=== PATIENT | female | born 1995 | race Caucasian/White ===

== ENCOUNTER 2022-11-11 07:32 | Outpatient (OUT) | payer OTHER, SELFPAY ==
[2022-11-12 05:08] LABS: Progesterone 15.4 ng/mL (.)
== END 2022-11-11 07:33 | disposition home or self-care (01) ==
LOC: LAB 07:32
PROVIDERS: Visit Provider Obstetrics & Gynecology
DX: N97.0 Female infertility associated with anovulation (principal)
CPT/HCPCS: 36415; 84144

== ENCOUNTER 2022-12-09 14:11 | Outpatient (OUT) | payer OTHER, SELFPAY ==
[2022-12-10 04:08] LABS: Progesterone 11.4 ng/mL (.)
== END 2022-12-09 14:12 | disposition home or self-care (01) ==
LOC: LAB 14:13
PROVIDERS: Visit Provider Obstetrics & Gynecology
DX: N97.9 Female infertility, unspecified (principal)
CPT/HCPCS: 36415; 84144

== ENCOUNTER 2023-01-03 09:43 | Outpatient (OUT) | payer OTHER, SELFPAY ==
[2023-01-04 08:12] LABS: Progesterone 1.3 ng/mL (.)
== END 2023-01-03 09:44 | disposition home or self-care (01) ==
LOC: LAB 09:43
PROVIDERS: Visit Provider Obstetrics & Gynecology
DX: N97.0 Female infertility associated with anovulation (principal)
CPT/HCPCS: 36415; 84144

== ENCOUNTER 2023-02-04 07:22 | Outpatient (OUT) | payer OTHER, SELFPAY ==
[2023-02-05 08:12] LABS: Progesterone 19.7 ng/mL (.)
== END 2023-02-04 07:23 | disposition home or self-care (01) ==
LOC: LAB 07:24
PROVIDERS: Visit Provider Obstetrics & Gynecology
DX: N92.6 Irregular menstruation, unspecified (principal)
CPT/HCPCS: 36415; 84144

== ENCOUNTER 2023-02-20 07:22 | Outpatient (OUT) | payer OTHER, SELFPAY ==
--- NOTE | 2023-02-20 07:33 | XR_ITS ---
The [address] [address] Patient Name: OLENA PEREYRA MRN: [id number] date: 1995 Sex: F Assigned Patient Location: [facility] Current Patient Location: [facility] Accession/Order Number: [id number] Exam Date: 02/20/2023 07:27 Report Date: 02/20/2023 08:12 At the request of: NON-STAFF PHYSICIAN Procedure: XR cervical spine 5V XR cervical spine 5V, 02/20/2023 7:27 AM EDT, [place]001 INDICATION: Neck pain COMPARISON: None TECHNIQUE: Five images are submitted, including bilateral oblique views. FINDINGS: There is straightening of the cervical curvature which may be due to spasm or positioning. No acute fracture or subluxation is identified. There is no significant disc space narrowing. The oblique views demonstrate no significant foraminal stenosis. The visualized soft tissues appear unremarkable. XR/XR cervical spine 5V IMPRESSION: There is straightening of the cervical curvature which may be due to spasm. No acute fracture or subluxation is seen. Electronically authenticated by: NAYELI ESQUIVEL Date: 02/20/2023 08:12
== END 2023-02-20 07:23 | disposition home or self-care (01) ==
LOC: RAD 07:23
DX: M54.2 Cervicalgia (principal); R51.9 Headache, unspecified
CPT/HCPCS: 72050

== ENCOUNTER 2023-03-04 07:10 | Outpatient (OUT) | payer OTHER, SELFPAY ==
[2023-03-05 04:07] LABS: Progesterone 15.9 ng/mL (.)
== END 2023-03-04 07:11 | disposition home or self-care (01) ==
LOC: LAB 07:10
PROVIDERS: Visit Provider Obstetrics & Gynecology
DX: N97.0 Female infertility associated with anovulation (principal)
CPT/HCPCS: 36415; 84144

== ENCOUNTER 2023-04-10 13:30 | Day surgery (SDC) | payer OTHER, SELFPAY ==
--- NOTE | 2023-04-10 13:49 | FL_ITS ---
[address] [address] Patient Name: OLENA PEREYRA MRN: [id number] date: 1995 Sex: F Assigned Patient Location: LAB Current Patient Location: LAB Accession/Order Number: [id number] Exam Date: 04/10/2023 14:30 Report Date: 04/13/2023 10:54 At the request of: RULA SMITH Procedure: FL Hysterosal cath placement EXAM: FL Hysterosal cath placement HISTORY: Infertility TECHNIQUE: FINDINGS: Please see Operative Report. Electronically authenticated by: RADIOLOGIST NO Date: 04/13/2023 10:54
--- NOTE | 2023-04-10 13:49 | FL_ITS ---
The [address] [address] Patient Name: OLENA PEREYRA MRN: [id number] date: 1995 Sex: F Assigned Patient Location: LAB Current Patient Location: Accession/Order Number: [id number] Exam Date: 04/10/2023 14:30 Report Date: 04/10/2023 15:10 At the request of: RULA SMITH Procedure: FL hysterosalpingography EXAMINATION: FL hysterosalpingography HISTORY: Infertility COMPARISON: No relevant comparison available. TECHNIQUE: Informed consent was obtained. A sterile vaginal speculum was introduced and, following cleansing of the cervix, a balloon-tipped catheter was inserted into the endometrial cavity. The procedure was then completed in the usual manner with water-soluble contrast. Standard level fluoroscopic mode of operation utilized. FINDINGS: FALLOPIAN TUBES: Patent fallopian tubes bilaterally. ENDOMETRIAL CAVITY: No scarring, filling defects, or dilatation. OTHER: Negative. FL/FL hysterosalpingography IMPRESSION: Normal exam Electronically authenticated by: SRIDHAR LAINEZ Date: 04/10/2023 15:10
[2023-04-10 14:06] LABS: HCG Quantitative <1 mIU/mL
--- NOTE | 2023-04-10 15:05 | PC.NURSE ---
1445 Pt denies any increase in vag bleeding. c/o mild abdominal cramping.
--- NOTE | 2023-04-10 15:05 | SUR.PREOP ---
04/08/23 Pt instructed on date, time, prep, and procedure.
== END 2023-04-10 14:50 | disposition home or self-care (01) ==
PROVIDERS: Radiology Diagnostic Radiology; Visit Provider Obstetrics & Gynecology
DX: N97.0 Female infertility associated with anovulation (principal)
CPT/HCPCS: 36415; 58340; 74740; 84702; Q9966

== ENCOUNTER 2023-06-06 09:08 | Outpatient (OUT) | payer OTHER, SELFPAY ==
--- OUTSIDE RECORDS SUMMARY | 2023-06-06 09:11 | XMS_ITS | CCD ---
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 [place] [address] Dr. Meghna Alas IG # 0.02 10e3/ul Normal 0.00-0.03 [facility] Comment on above: Performed By: #### C BC #### [facility] [address] [place] [address] Dr. Meghna Alas IG % 0.3 % Normal 0.0-0.5 [facility] Comment on above: Performed By: #### C BC #### [facility] [address] [place] [address] Dr. Meghna Alas LYMPH # 1.7 103/ul Normal 1.2-3.8 [facility] Comment on above: Performed By: #### C BC #### [facility] [address] [place] [address] Dr. Meghna Alas Lymphocytes/100 WBC (Bld) 27.7 % Normal 20.5-60.0 [facility] Comment on above: Performed By: #### C BC #### [facility] [address] [place] [address] Dr. Meghna Alas MANUAL DIFF REQ NO Normal [facility] Comment on above: Performed By: #### C BC #### [facility] [address] [place] [address] Dr. Meghna Alas MCH (RBC) [Entitic mass] 30.7 pg Normal 26.7-34.0 [facility] Comment on above: Performed By: #### C BC #### [facility] [address] [place] [address] Dr. Meghna Alas MCHC (RBC) [Mass/Vol] 34.2 g/dL Normal 29.9-35.2 [facility] Comment on above: Performed By: #### C BC #### [facility] [address] [place] [address] Dr. Meghna Alas MCV (RBC) [Entitic vol] 89.7 fL Normal 81.0-99.0 [facility] Comment on above: Performed By: #### C BC #### [facility] [address] [place] [address] Dr. Meghna Alas MONO # 0.4 103/ul Normal 0.3-0.8 [facility] Comment on above: Performed By: #### C BC #### [facility] [address] [place] [address] Dr. Meghna Alas Monocytes/100 WBC (Bld) 7.1 % Normal 1.7-12.0 [facility] Comment on above: Performed By: #### C BC #### [facility] [address] [place] [address] Dr. Meghna Alas NEUT # 3.7 103/ul Normal 1.4-6.5 [facility] Comment on above: Performed By: #### C BC #### [facility] [address] [place] [address] Dr. Meghna Alas Neutrophils/100 WBC (Bld) 60.4 % Normal 43.0-75.0 [facility] Comment on above: Performed By: #### C BC #### [facility] [address] [place] [address] Dr. Meghna Alas Platelet mean volume (Bld) [Entitic vol] 11.3 fL Normal 9.5-13.5 [facility] Comment on above: Performed By: #### C BC #### [facility] [address] [place] [address] Dr. Meghna Alas PLT 154 103/ul Normal 150-450 [facility] Comment on above: Performed By: #### C BC #### [facility] [address] [place] [address] Dr. Meghna Alas RBC 4.86 106/ul Normal 4.20-5.40 [facility] Comment on above: Performed By: #### C BC #### [facility] [address] [place] [address] Dr. Meghna Alas WBC 6.2 103/ul Normal 4.0-11.0 [facility] Comment on above: Performed By: #### C BC #### [facility] [address] [place] [address] Dr. Meghna Alas FREE T4on 07-26-2022 Free T4 [Mass/Vol] 1.04 ng/dL Normal 0.76-1.46 [facility] Comment on above: Performed By: #### F T4 #### [facility] [address] [place] [address] Dr. Meghna Alas GLYCOHEMOGLOBIN A1Con 2022 ADA RECOMMENDATION SEE BELOW Normal [facility] Comment on above: Result Comment: ADA RECOMMENDED LIMIT 4.0 - 6.0 ADA THERAPEUTIC TARGET < 7.0 ACTION SUGGESTED > 7.0 Performed By: #### A 1C #### [facility] [address] [place] [address] Dr. Meghna Alas Glucose [Mass/Vol] 82 mg/dL Normal [facility] Comment on above: Performed By: #### A 1C #### [facility] [address] [place] [address] Dr. Meghna Alas HbA1c (Bld) [Mass fraction] 4.5 % Normal 4.5-6.2 [facility] Comment on above: Performed By: #### A 1C #### [facility] [address] [place] [address] Dr. Meghna Alas TSHon 07-26-2022 TSH 1.522 uIU/mL Normal 0.358-3.740 [facility] Comment on above: Performed By: #### T SH #### [facility] [address] [place] [address] Dr. Meghna Alas Vital Signs Date Time Vital Sign Value Performing Clinician Faci lity 02-19-2023 07:41-0400 Body temperature 97.7 [degF] Princess Rapp [facility] 02-19-2023 07:41-0400 Diastolic blood pressure 70 mm[Hg] Princess Rapp [facility] 02-19-2023 07:41-0400 Heart rate 81 /min Princess Rapp [facility] 02-19-2023 07:41-0400 SaO2% (BldA) [Mass fraction] 99 % Princess Rapp [facility] 02-19-2023 07:41-0400 Systolic blood pressure 110 mm[Hg] Princess Rapp [facility] 07-24-2021 16:57-0400 Blood Pressure Location Leigh Ann Covington [facility] 07-24-2021 16:57-0400 Body temperature 97.7 [degF] Leigh Ann Bojorquezell [facility] 07-24-2021 16:57-0400 Diastolic blood pressure 68 mm[Hg] Leigh Ann Bojorquezell [facility] 07-24-2021 16:57-0400 Heart rate 88 /min Leigh Annjuan Bojorquezell [facility] 07-24-2021 16:57-0400 SaO2% (BldA) [Mass fraction] 99 % Leigh Ann Bojorquezell [facility] 07-24-2021 16:57-0400 Systolic blood pressure 122 mm[Hg] Leigh Ann Bojorquezell [facility] Encounters Encounter Date Encounter Type Care Provider Facility Start: 03-25-2023 End: 03-26-2023 ambulatory Princess Rapp Facility:[facility] Start: 03-25-2023 End: 03-25-2023 Patient encounter procedure Princess Rapp [facility] Start: 03-18-2023 End: 03-18-2023 ambulatory RULA SMITH Not Available Start: 02-19-2023 End: 02-20-2023 ambulatory Princess Rapp Facility:[facility] Start: 02-19-2023 End: 02-19-2023 Patient encounter procedure Princess Rapp [facility] Start: 07-26-2022 End: 07-27-[address] RULA SMITH . Facility:[facility] Start: 07-23-2022 End: 07-23-[address] RULA SMITH . Facility:[facility] Start: 07-24-2021 End: 07-24-2021 Patient encounter procedure Leigh Ann Covington [facility] Procedures Date Procedure Procedure Detail Performing Clinician Start: 11-15-2015 Right Knee Arthrosco py with Medial Meniscal Repair Leigh Ann Covington Start: 07-28-2013 right knee anterior cruciate ligament allograft reconstruction with [id number], debridment medial meniscus tear, patellofemoral chondroplasty-Grade I-II Leigh Ann Covington Tonsillectomy Leigh Ann Covington tubes in the ears Leigh Ann bartholomew Immunizations Immunization Date Immunization Notes Care Provider Fa cility 12-20-2009 meningococcal ACWY vaccine, unspecified formulation Princess Rapp [facility] 12-20-2009 tetanus toxoid, reduced diphtheria toxoid, and acellular pertussis vaccine, adsorbed Princess Rapp [facility] 12-20-2009 varicella virus vaccine Princess Rapp [facility] NEGATED: Highlighted row has not occurred!06-26-2021 influenza virus vaccine, unspecified formulation Leigh Ann Covington [facility] NEGATED: Highlighted row has not occurred!06-26-2021 SARS-CoV-2 (COVID-19) Ad26 vaccine, recombinant Leigh Ann Covington [facility] NEGATED: Highlighted row has not occurred!01-29-2021 influenza virus vaccine, unspecified formulation Leigh Ann Covington [facility] NEGATED: Highlighted row has not occurred!01-29-2021 SARS-CoV-2 (COVID-19) Ad26 vaccine, recombinant Leigh Ann Covington [facility] NEGATED: Highlighted row has not occurred!05-03-2019 influenza virus vaccine, live, attenuated, for intranasal use Leigh Ann SwingShot [facility] NEGATED: Highlighted row has not occurred!09-30-2018 influenza virus vaccine, unspecified formulation Leigh Ann Covington [facility] Payers Date Payer Category Payer Unknown [id number] [id number] [id number] 1997 Unknown [id number] [id number] [id number] 1997 Unknown [id number] 1997 Unknown [id number] [id number] 1997 Unknown [id number] [id number] 1959 Unknown [id number] 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 Date Type Detail Facility Start: 07-24-2021 Tobacco smoking status Never s moked tobacco (finding) [facility] Tobacco smoking status Never Oliverio [facility] Sex Assigned At Female [facility] Functional Status Date Assessment Result Facility 02-19-2023 Functional Status N/A [facility] Evaluation + Plan note 02-19-2023 LaboratoryRadiology Note Date & Type Note Facility 02-19-2023 Evaluation + Plan note Future Scheduled TestsU Protein/Creat Ratio 02/19/23HgbA1c 02/19/23Microalbumin Level Urine 02/19/23TSH With T4fr Reflex 02/19/23Vitamin D 25 Hydroxy 02/19/23CBC w/ Auto Diff 02/19/23Comprehensive Metabolic Panel 02/19/23Lipid Panel 02/19/23XR Spine Cervical 4 or 5 Views 02/19/23 [facility] Hospital Discharge instructions 02-19-2023 Note Date & Type Note Facility 02-19-2023 Hospital Discharg e instructions Patient Education 02/19/2023 08:34:11 Cervicogenic Headache Cervicogenic Headache In a cervicogenic headache, the pain moves from your neck to your head. Most cervicogenic headaches start in the upper part of the neck with the first three cervical bones (cervical vertebrae). What are the causes? The most common cause of this condition is a traumatic injury to the bones and tissues in your neck (cervical spine). Whiplash is an example of a cervical spine injury. Other causes include: Arthritis. Broken bone (fracture). Infection. Tumor. What are the signs or symptoms? The most common symptoms are neck and head pain. The pain is often located on one side. In some cases, there may be head pain without neck pain. Pain may be felt in the neck, back or side of the head, face, or behind the eyes. Other symptoms include: Limited movement in the neck. Arm or shoulder pain. How is this diagnosed? This condition may be diagnosed based on: Your symptoms. A physical exam. An injection that blocks nerve signals (diagnostic nerve block). Imaging tests, such as: ?X-rays. ?CT scan. ?MRI. A cervicogenic headache is diagnosed when a cause can be found in the cervical spine and other causes of headaches can be ruled out. How is this treated? Treatment for this condition may depend on the underlying condition. Treatment may include: Medicines, such as: ?NSAIDs, such as ibuprofen. ?Muscle relaxants. Physical therapy. Massage therapy. Complementary therapies, such as: ?Biofeedback. ?Meditation. ?Acupuncture. Nerve block injections to reduce the pain. Botulinum toxin injections. Your treatment plan may involve working with a pain management team that includes your primary health care provider, a automobile painter, a neurologist, and a physical therapist. Follow these instructions at home: Take eoba-bux-mxfxyho and prescription medicines only as told by your health care provider. Do exercises at home as told by your physical therapist. Return to your normal activities as told by your health care provider. Ask your health care provider what activities are safe for you. Avoid activities that trigger your headaches. Maintain good neck support and posture at home and at work. Keep all follow-up visits. This is important. Contact a health care provider if: You have headaches that are getting worse and happening more often. You have headaches with any of the following: ?Fever. ?Numbness. ?Weakness. ?Dizziness. ?Nausea or vomiting. Get help right away if: You have a sudden and severe headache. This symptom may be an emergency. Get help right away. Call 911. Do not wait to see if this symptom will go away. Do not drive yourself to the hospital. Summary A cervicogenic headache is a headache caused by a condition that affects the bones and tissues in your cervical spine. Your health care provider may diagnose this condition with a physical exam, a diagnostic nerve block, and imaging tests. Treatment may include medicine to reduce pain and inflammation, physical therapy, and nerve block injections. Complementary therapies, such as acupuncture and meditation, may be added to other treatments. Your treatment plan may involve working with a pain management team that includes your primary health care provider, a automobile painter, a neurologist, and a physical therapist. This information is not intended to replace advice given to you by your health care provider. Make sure you discuss any questions you have with your health care provider. Document Revised: 10/24/2021 Document Reviewed: 10/24/2021 [employer] Patient Education 2022 [employer]. 02/19/2023 08:34:09 Migraine Headache Migraine Headache A migraine headache is an intense, throbbing pain on one side or both sides of the head. Migraine headaches may also cause other symptoms, such as nausea, vomiting, and sensitivity to light and noise. A migraine headache can last from 4 hours to 3 days. Talk with your doctor about what things may bring on (trigger) your migraine headaches. What are the causes? The exact cause of this condition is not known. However, a migraine may be caused when nerves in the brain become irritated and release chemicals that cause inflammation of blood vessels. This inflammation causes pain. This condition may be triggered or caused by: Drinking alcohol. Smoking. Taking medicines, such as: ?Medicine used to treat chest pain (nitroglycerin). ? control pills. ?Estrogen. ?Certain blood pressure medicines. Eating or drinking products that contain nitrates, glutamate, aspartame, or tyramine. Aged cheeses, chocolate, or caffeine may also be triggers. Doing physical activity. Other things that may trigger a migraine headache include: Menstruation. . Hunger. Stress. Lack of sleep or too much sleep. Weather changes. Fatigue. What increases the risk? The following factors may make you more likely to experience migraine headaches: Being a certain age. This condition is more common in people who are 25 55 years old. Being female. Having a family history of migraine headaches. Being . Having a mental health condition, such as depression or anxiety. Being obese. What are the signs or symptoms? The main symptom of this condition is pulsating or throbbing pain. This pain may: Happen in any area of the head, such as on one side or both sides. Interfere with daily activities. Get worse with physical activity. Get worse with exposure to bright lights or loud noises. Other symptoms may include: Nausea. Vomiting. Dizziness. General sensitivity to bright lights, loud noises, or smells. Before you get a migraine headache, you may get warning signs (an aura). An aura may include: Seeing flashing lights or having blind spots. Seeing bright spots, halos, or zigzag lines. Having tunnel vision or blurred vision. Having numbness or a tingling feeling. Having trouble talking. Having muscle weakness. Some people have symptoms after a migraine headache (postdromal phase), such as: Feeling tired. Difficulty concentrating. How is this diagnosed? A migraine headache can be diagnosed based on: Your symptoms. A physical exam. Tests, such as: ?CT scan or an MRI of the head. These imaging tests can help rule out other causes of headaches. ?Taking fluid from the spine (lumbar puncture) and analyzing it (cerebrospinal fluid analysis, or CSF analysis). How is this treated? This condition may be treated with medicines that: Relieve pain. Relieve nausea. Prevent migraine headaches. Treatment for this condition may also include: Acupuncture. Lifestyle changes like avoiding foods that trigger migraine headaches. Biofeedback. Cognitive behavioral therapy. Follow these instructions at home: Medicines Take gmjf-szs-nbsmhlh and prescription medicines only as told by your health care provider. Ask your health care provider if the medicine prescribed to you: ?Requires you to avoid driving or using heavy machinery. ?Can cause constipation. You may need to take these actions to prevent or treat constipation: ?Drink enough fluid to keep your urine pale yellow. ?Take zvqx-rxh-oafdksy or prescription medicines. ?Eat foods that are high in fiber, such as beans, whole grains, and fresh fruits and vegetables. ?Limit foods that are high in fat and processed sugars, such as fried or sweet foods. Lifestyle Do not drink alcohol. Do not use any products that contain nicotine or tobacco, such as cigarettes, e-cigarettes, and chewing tobacco. If you need help quitting, ask your health care provider. Get at least 8 hours of sleep every night. Find ways to manage stress, such as meditation, deep breathing, or yoga. General instructions Keep a journal to find out what may trigger your migraine headaches. For example, write down: ?What you eat and drink. ?How much sleep you get. ?Any change to your diet or medicines. If you have a migraine headache: ?Avoid things that make your symptoms worse, such as bright lights. ?It may help to lie down in a dark, quiet room. ?Do not drive or use heavy machinery. ?Ask your health care provider what activities are safe for you while you are experiencing symptoms. Keep all follow-up visits as told by your health care provider. This is important. Contact a health care provider if: You develop symptoms that are different or more severe than your usual migraine headache symptoms. You have more than 15 headache days in one month. Get help right away if: Your migraine headache becomes severe. Your migraine headache lasts longer than 72 hours. You have a fever. You have a stiff neck. You have vision loss. Your muscles feel weak or like you cannot control them. You start to lose your balance often. You have trouble walking. You faint. You have a seizure. Summary A migraine headache is an intense, throbbing pain on one side or both sides of the head. Migraines may also cause other symptoms, such as nausea, vomiting, and sensitivity to light and noise. This condition may be treated with medicines and lifestyle changes. You may also need to avoid certain things that trigger a migraine headache. Keep a journal to find out what may trigger your migraine headaches. Contact your health care provider if you have more than 15 headache days in a month or you develop symptoms that are different or more severe than your usual migraine headache symptoms. This information is not intended to replace advice given to you by your health care provider. Make sure you discuss any questions you have with your health care provider. Document Revised: 08/12/2019 Document Reviewed: 06/02/2019 [employer] Patient Education 2022 [email or web address]. 02/19/2023 08:34:03 Form - Headache Record Form - Headache Record There are many types and causes of headaches. A headache record can help guide your treatment plan. Use this form to record the details. Bring this form with you to your follow-up visits. Follow your health care provider's instructions on how to describe your headache. You may be asked to: Use a pain scale. This is a tool to rate the intensity of your headache using words or numbers. Describe what your headache feels like, such as dull, achy, throbbing, or sharp. Headache record Date: Time (from start to end): Location of the headache: Intensity of the headache: Description of the headache: __ Hours of sleep the night before the headache: Food or drinks before the headache started: Events before the headache started: Symptoms before the headache started: Symptoms during the headache: Treatment: Effect of treatment: Other comments: Date: Time (from start to end): Location of the headache: Intensity of the headache: Description of the headache: __ Hours of sleep the night before the headache: Food or drinks before the headache started: Events before the headache started: __ Symptoms before the headache started: Symptoms during the headache: Treatment: Effect of treatment: Other comments: Date: Time (from start to end): Location of the headache: Intensity of the headache: Description of the headache: __ Hours of sleep the night before the headache: Food or drinks before the headache started: Events before the headache started: __ Symptoms before the headache started: Symptoms during the headache: Treatment: Effect of treatment: Other comments: Date: Time (from start to end): Location of the headache: Intensity of the headache: Description of the headache: __ Hours of sleep the night before the headache: Food or drinks before the headache started: Events before the headache started: __ Symptoms before the headache started: Symptoms during the headache: Treatment: Effect of treatment: Other comments: Date: Time (from start to end): Location of the headache: Intensity of the headache: Description of the headache: __ Hours of sleep the night before the headache: Food or drinks before the headache started: Events before the headache started: __ Symptoms before the headache started: Symptoms during the headache: Treatment: Effect of treatment: Other comments: This information is not intended to replace advice given to you by your health care provider. Make sure you discuss any questions you have with your health care provider. Document Revised: 09/18/2021 Document Reviewed: 09/18/2021 Elsevier Patient Education 2022 [employer] 02/19/2023 01:02:45 General Headache Without Cause General Headache Without Cause A headache is pain or discomfort felt around the head or neck area. There are many causes and types of headaches. A few common types include: Tension headaches. Migraine headaches. Cluster headaches. Chronic daily headaches. Sometimes, the specific cause of a headache may not be found. Follow these instructions at home: Watch your condition for any changes. Let your health care provider know about them. Take these steps to help with your condition: Managing pain Take qpna-amh-ywexfyz and prescription medicines only as told by your health care provider. Treatment may include medicines for pain that are taken by mouth or applied to the skin. Lie down in a dark, quiet room when you have a headache. Keep lights dim if bright lights bother you or make your headaches worse. If directed, put ice on your head and neck area: ?Put ice in a plastic bag. ?Place a towel between your skin and the bag. ?Leave the ice on for 20 minutes, 2 3 times per day. ?Remove the ice if your skin turns bright red. This is very important. If you cannot feel pain, heat, or cold, you have a greater risk of damage to the area. If directed, apply heat to the affected area. Use the heat source that your health care provider recommends, such as a moist heat pack or a heating pad. ?Place a towel between your skin and the heat source. ?Leave the heat on for 20 30 minutes. ?Remove the heat if your skin turns bright red. This is especially important if you are unable to feel pain, heat, or cold. You have a greater risk of getting burned. Eating and drinking Eat meals on a regular schedule. If you drink alcohol: ?Limit how much you have to: ?0 1 drink a day for women who are not . ? 0 2 drinks a day for men. ?Know how much alcohol is in a drink. In the [place] one drink equals one 12 oz bottle of beer (355 mL), one 5 oz glass of wine (148 mL), or one 1 oz glass of hard liquor (44 mL). Stop drinking caffeine, or decrease the amount of caffeine you drink. Drink enough fluid to keep your urine pale yellow. General instructions Keep a headache journal to help find out what may trigger your headaches. For example, write down: ?What you eat and drink. ?How much sleep you get. ?Any change to your diet or medicines. Try massage or other relaxation techniques. Limit stress. Sit up straight, and do not tense your muscles. Do not use any products that contain nicotine or tobacco. These products include cigarettes, chewing tobacco, and vaping devices, such as e-cigarettes. If you need help quitting, ask your health care provider. Exercise regularly as told by your health care provider. Sleep on a regular schedule. Get 7 9 hours of sleep each night, or the amount recommended by your health care provider. Keep all follow-up visits. This is important. Contact a health care provider if: Medicine does not help your symptoms. You have a headache that is different from your usual headache. You have nausea or you vomit. You have a fever. Get help right away if: Your headache: ?Becomes severe quickly. ?Gets worse after moderate to intense physical activity. You have any of these symptoms: ?Repeated vomiting. ?Pain or stiffness in your neck. ?Changes to your vision. ?Pain in an eye or ear. ?Problems with speech. ?Muscular weakness or loss of muscle control. ?Loss of balance or coordination. You feel faint or pass out. You have confusion. You have a seizure. These symptoms may represent a serious problem that is an emergency. Do not wait to see if the symptoms will go away. Get medical help right away. Call your local emergency services (911 in the [place] Do not drive yourself to the hospital. Summary A headache is pain or discomfort felt around the head or neck area. There are many causes and types of headaches. In some cases, the cause may not be found. Keep a headache journal to help find out what may trigger your headaches. Watch your condition for any changes. Let your health care provider know about them. Contact a health care provider if you have a headache that is different from the usual headache, or if your symptoms are not helped by medicine. Get help right away if your headache becomes severe, you vomit, you have a loss of vision, you lose your balance, or you have a seizure. This information is not intended to replace advice given to you by your health care provider. Make sure you discuss any questions you have with your health care provider. Document Revised: 09/18/2021 Document Reviewed: 09/18/2021 [employer] Patient Education 2022 [employer]. 02/19/2023 01:02:42 Form - Headache Record Form - Headache Record There are many types and causes of headaches. A headache record can help guide your treatment plan. Use this form to record the details. Bring this form with you to your follow-up visits. Follow your health care provider's instructions on how to describe your headache. You may be asked to: Use a pain scale. This is a tool to rate the intensity of your headache using words or numbers. Describe what your headache feels like, such as dull, achy, throbbing, or sharp. Headache record Date: Time (from start to end): Location of the headache: Intensity of the headache: Description of the headache: __ Hours of sleep the night before the headache: Food or drinks before the headache started: Events before the headache started: Symptoms before the headache started: Symptoms during the headache: Treatment: Effect of treatment: Other comments: Date: Time (from start to end): Location of the headache: Intensity of the headache: Description of the headache: __ Hours of sleep the night before the headache: Food or drinks before the headache started: Events before the headache started: __ Symptoms before the headache started: Symptoms during the headache: Treatment: Effect of treatment: Other comments: Date: Time (from start to end): Location of the headache: Intensity of the headache: Description of the headache: __ Hours of sleep the night before the headache: Food or drinks before the headache started: Events before the headache started: __ Symptoms before the headache started: Symptoms during the headache: Treatment: Effect of treatment: Other comments: Date: Time (from start to end): Location of the headache: Intensity of the headache: Description of the headache: __ Hours of sleep the night before the headache: Food or drinks before the headache started: Events before the headache started: __ Symptoms before the headache started: Symptoms during the headache: Treatment: Effect of treatment: Other comments: Date: Time (from start to end): Location of the headache: Intensity of the headache: Description of the headache: __ Hours of sleep the night before the headache: Food or drinks before the headache started: Events before the headache started: __ Symptoms before the headache started: Symptoms during the headache: Treatment: Effect of treatment: Other comments: This information is not intended to replace advice given to you by your health care provider. Make sure you discuss any questions you have with your health care provider. Document Revised: 09/18/2021 Document Reviewed: 09/18/2021 [employer] Patient Education 2022 [employer] 02/19/2023 01:02:37 Cervicogenic Headache Cervicogenic Headache In a cervicogenic headache, the pain moves from your neck to your head. Most cervicogenic headaches start in the upper part of the neck with the first three cervical bones (cervical vertebrae). What are the causes? The most common cause of this condition is a traumatic injury to the bones and tissues in your neck (cervical spine). Whiplash is an example of a cervical spine injury. Other causes include: Arthritis. Broken bone (fracture). Infection. Tumor. What are the signs or symptoms? The most common symptoms are neck and head pain. The pain is often located on one side. In some cases, there may be head pain without neck pain. Pain may be felt in the neck, back or side of the head, face, or behind the eyes. Other symptoms include: Limited movement in the neck. Arm or shoulder pain. How is this diagnosed? This condition may be diagnosed based on: Your symptoms. A physical exam. An injection that blocks nerve signals (diagnostic nerve block). Imaging tests, such as: ?X-rays. ?CT scan. ?MRI. A cervicogenic headache is diagnosed when a cause can be found in the cervical spine and other causes of headaches can be ruled out. How is this treated? Treatment for this condition may depend on the underlying condition. Treatment may include: Medicines, such as: ?NSAIDs, such as ibuprofen. ?Muscle relaxants. Physical therapy. Massage therapy. Complementary therapies, such as: ?Biofeedback. ?Meditation. ?Acupuncture. Nerve block injections to reduce the pain. Botulinum toxin injections. Your treatment plan may involve working with a pain management team that includes your primary health care provider, a automobile painter, a neurologist, and a physical therapist. Follow these instructions at home: Take gcij-yri-eayhxok and prescription medicines only as told by your health care provider. Do exercises at home as told by your physical therapist. Return to your normal activities as told by your health care provider. Ask your health care provider what activities are safe for you. Avoid activities that trigger your headaches. Maintain good neck support and posture at home and at work. Keep all follow-up visits. This is important. Contact a health care provider if: You have headaches that are getting worse and happening more often. You have headaches with any of the following: ?Fever. ?Numbness. ?Weakness. ?Dizziness. ?Nausea or vomiting. Get help right away if: You have a sudden and severe headache. This symptom may be an emergency. Get help right away. Call 911. Do not wait to see if this symptom will go away. Do not drive yourself to the hospital. Summary A cervicogenic headache is a headache caused by a condition that affects the bones and tissues in your cervical spine. Your health care provider may diagnose this condition with a physical exam, a diagnostic nerve block, and imaging tests. Treatment may include medicine to reduce pain and inflammation, physical therapy, and nerve block injections. Complementary therapies, such as acupuncture and meditation, may be added to other treatments. Your treatment plan may involve working with a pain management team that includes your primary health care provider, a automobile painter, a neurologist, and a physical therapist. This information is not intended to replace advice given to you by your health care provider. Make sure you discuss any questions you have with your health care provider. Document Revised: 10/24/2021 Document Reviewed: 10/24/2021 [employer] Patient Education 2022 [employer] 02/19/2023 01:02:35 Chronic Migraine Headache Chronic Migraine Headache A migraine is a type of headache that is usually stronger and more sudden than other headaches. Migraines are characterized by an intense pulsing, throbbing pain that is usually only present on one side of the head. Migraine pain usually gets worse with activity. Migraines can cause nausea, vomiting, sensitivity to light and sound, and vision changes. Migraines that keep coming back are called recurrent migraines. A migraine is called a chronic migraine if it happens at least 15 days in a month for more than 3 months. Talk with your health care provider about what things may bring on (trigger) your migraines. What are the causes? The exact cause of this condition is not known. However, a migraine may be caused when nerves in the brain become irritated and release chemicals that cause inflammation of blood vessels. The inflammation of the blood vessels causes pain. Migraines may be triggered or caused by: Smoking. Certain foods and drinks, such as: ?Aged cheese. ?Chocolate. ?Alcohol. ?Caffeine. ?Foods or drinks that contain nitrates, glutamate, aspartame, MSG, or tyramine. Medicines, such as control pills or some blood pressure medicines. Other things that may trigger a migraine include: Menstruation. Emotional stress. Lack of sleep or too much sleep. Tiredness (fatigue). Bright lights or loud noises. Odors. Weather changes and high altitude. What increases the risk? The following factors may make you more likely to experience chronic migraine: Having migraines or a family history of migraines. Having a mental health condition, such as depression or anxiety. Having to take a lot of pain medicine. Having sleep problems. Having heart disease, diabetes, or obesity. What are the signs or symptoms? Symptoms of a migraine vary for each person and may include: Pulsating or throbbing pain. Pain that is usually only present on one side of the head. In some cases, the pain may be on both sides of the head or around the head or neck. Severe pain that prevents you from doing daily activities. Pain that gets worse with physical activity. Nausea, vomiting, or both. Pain with exposure to bright lights, loud noises, or activity. General sensitivity to bright lights, loud noises, or smells. Dizziness. A sign that a migraine is becoming chronic is an increasing number of migraine episodes. It is considered chronic if the migraine happens at least 15 days in a month for more than 3 months. How is this diagnosed? This condition is often diagnosed based on: Your symptoms and medical history. A physical exam. You may also have tests, including: A CT scan or an MRI of your brain. These imaging tests cannot diagnose migraines, but they can help to rule out other causes of headaches. Taking fluid from the spine (lumbar puncture) and analyzing it (cerebrospinal fluid analysis, or CSF analysis). Blood tests. How is this treated? This condition is treated with: Medicines. These help to: ?Lessen pain and nausea. ?Prevent migraines. Lifestyle changes, such as changes to your diet or sleeping patterns. Behavior therapy. This may include: ?Relaxation training. ?Biofeedback. This is a treatment that teaches you to relax and use your brain to lower your heart rate and control your breathing. ?Cognitive behavioral therapy (CBT). This is a form of talk therapy. This therapy helps you set goals and follow up on the changes that you make. Acupuncture. Using a device that provides electrical stimulation to your nerves, which can relieve pain (neuromodulation therapy). Surgery, if the other treatments are not working. Follow these instructions at home: Medicines Take bqlt-nlw-uotkxdm and prescription medicines only as told by your health care provider. Ask your health care provider if the medicine prescribed to you requires you to avoid driving or using machinery. Lifestyle Do not use any products that contain nicotine or tobacco, such as cigarettes, e-cigarettes, and chewing tobacco. If you need help quitting, ask your health care provider. Do not drink alcohol. Get 7 9 hours of sleep each night, or the amount of sleep recommended by your health care provider. Find ways to manage stress, such as meditation, deep breathing, or yoga. Maintain a healthy weight. If you need help losing weight, ask your health care provider. Exercise regularly. Aim for 150 minutes of moderate-intensity exercise, such as walking, biking, or yoga, or 75 minutes of vigorous exercise each week. Vigorous exercise includes running, circuit training, and swimming. General instructions Keep a journal to find out what triggers your migraines so you can avoid these triggers. For example, write down: ?What you eat and drink. ?How much sleep you get. ?Any change to your diet or medicines. Lie down in a dark, quiet room when you have a migraine. Try placing a cool towel over your head when you have a migraine. Keep lights dim, if bright lights bother you or make your migraines worse. Keep all follow-up visits as told by your health care provider. This is important. Where to find more information Coalition for Headache and Migraine Patients (CHAMP): headachemigraine.org [employer] Migraine Foundation: americanmigrainefoundation.org National Headache Foundation: headaches.org Contact a health care provider if: Your pain does not improve, even with medicine. Your migraines continue to return, even with medicine. Get help right away if: Your migraine becomes severe and medicine does not help. You have a stiff neck and fever. You have a loss of vision. You have muscle weakness or loss of muscle control. You start losing your balance, or you have trouble walking. You feel like you may faint, or you faint. You start having sudden and unexpected, severe headaches. You have a seizure. Summary Migraine headaches are usually stronger and more sudden than other headaches. Migraines are characterized by an intense pulsing, throbbing pain that is usually only present on one side of the head. Migraines that keep coming back are called recurrent migraines. A migraine is called a chronic migraine if it happens 15 days in a month for more than 3 months. Certain things may trigger migraines, such as lack of sleep or too much sleep, smoking, certain foods, alcohol, stress, and certain medicines. Your treatment plan may include medicines, lifestyle changes, and behavior therapy. This information is not intended to replace advice given to you by your health care provider. Make sure you discuss any questions you have with your health care provider. Document Revised: 06/06/2020 Document Reviewed: 06/06/2020 [employer] Patient Education 2022 [employer]. Follow Up Care 02/17/2023 08:10:14 With:Princess Dumont FAM, MED Address: [address] [employer] [address] [place] [id number] When:Within 1 Month(s) Comments:headaches. neck pain With:Princess Dumont FAM, MED Address: [address] [employer] [address] [place] [phone]- When:Within 1 Year(s) Comments:annual wellness, anxiety/ depression [facility] Discharge instructions 07-24-2021 Note Date & Type Note Facility 07-24-2021 Hospital Discharg e instructions Patient Education 07/24/2021 17:17:00 BMI for Adults BMI for Adults Body mass index (BMI) is a number that is calculated from a person's weight and height. BMI may help to estimate how much of a person's weight is composed of fat. BMI can help identify those who may be at higher risk for certain medical problems. How is BMI used with adults? BMI is used as a screening tool to identify possible weight problems. It is used to check whether a person is obese, overweight, healthy weight, or underweight. How is BMI calculated? BMI measures your weight and compares it to your height. This can be done either in [place] ([place] or metric measurements. Note that charts are available to help you find your BMI quickly and easily without having to do these calculations yourself. To calculate your BMI in [place] measurements, your health care provider will: 1.Measure your weight in pounds (lb). 2.Multiply the number of pounds by 703. For example, for a person who weighs 180 lb, multiply that number by 703, which equals 126,540. 3.Measure your height in inches (in). Then multiply that number by itself to get a measurement called inches squared. For example, for a person who is 70 in tall, the inches squared measurement is 70 in x 70 in, which equals 4900 inches squared. 4.Divide the total from Step 2 (number of lb x 703) by the total from Step 3 (inches squared): 126,540 4900 = 25.8. This is your BMI. To calculate your BMI in metric measurements, your health care provider will: 1.Measure your weight in kilograms (kg). 2.Measure your height in meters (m). Then multiply that number by itself to get a measurement called meters squared. For example, for a person who is 1.75 m tall, the meters squared measurement is 1.75 m x 1.75 m, which is equal to 3.1 meters squared. 3.Divide the number of kilograms (your weight) by the meters squared number. In this example: 70 3.1 = 22.6. This is your BMI. How is BMI interpreted? To interpret your results, your health care provider will use BMI charts to identify whether you are underweight, normal weight, overweight, or obese. The following guidelines will be used: Underweight: BMI less than 18.5. Normal weight: BMI between 18.5 and 24.9. Overweight: BMI between 25 and 29.9. Obese: BMI of 30 and above. Please note: Weight includes both fat and muscle, so someone with a muscular build, such as an athlete, may have a BMI that is higher than 24.9. In cases like these, BMI is not an accurate measure of body fat. To determine if excess body fat is the cause of a BMI of 25 or higher, further assessments may need to be done by a health care provider. BMI is usually interpreted in the same way for men and women. Why is BMI a useful tool? BMI is useful in two ways: Identifying a weight problem that may be related to a medical condition, or that may increase the risk for medical problems. Promoting lifestyle and diet changes in order to reach a healthy weight. Summary Body mass index (BMI) is a number that is calculated from a person's weight and height. BMI may help to estimate how much of a person's weight is composed of fat. BMI can help identify those who may be at higher risk for certain medical problems. BMI can be measured using Fijian measurements or metric measurements. To interpret your results, your health care provider will use BMI charts to identify whether you are underweight, normal weight, overweight, or obese. This information is not intended to replace advice given to you by your health care provider. Make sure you discuss any questions you have with your health care provider. Document Released: 12/30/2004 Document Revised: 04/02/2018 Document Reviewed: 03/03/2018 [employer] Patient Education 2020 [employer]. 07/24/2021 17:16:58 Health Maintenance, Female Health Maintenance, Female Adopting a healthy lifestyle and getting preventive care are important in promoting health and wellness. Ask your health care provider about: The right schedule for you to have regular tests and exams. Things you can do on your own to prevent diseases and keep yourself healthy. What should I know about diet, weight, and exercise? Eat a healthy diet Eat a diet that includes plenty of vegetables, fruits, low-fat dairy products, and lean protein. Do not eat a lot of foods that are high in solid fats, added sugars, or sodium. Maintain a healthy weight Body mass index (BMI) is used to identify weight problems. It estimates body fat based on height and weight. Your health care provider can help determine your BMI and help you achieve or maintain a healthy weight. Get regular exercise Get regular exercise. This is one of the most important things you can do for your health. Most adults should: Exercise for at least 150 minutes each week. The exercise should increase your heart rate and make you sweat (moderate-intensity exercise). Do strengthening exercises at least twice a week. This is in addition to the moderate-intensity exercise. Spend less time sitting. Even light physical activity can be beneficial. Watch cholesterol and blood lipids Have your blood tested for lipids and cholesterol at 20 years of age, then have this test every 5 years. Have your cholesterol levels checked more often if: Your lipid or cholesterol levels are high. You are older than 40 years of age. You are at high risk for heart disease. What should I know about cancer screening? Depending on your health history and family history, you may need to have cancer screening at various ages. This may include screening for: Breast cancer. Cervical cancer. Colorectal cancer. Skin cancer. Lung cancer. What should I know about heart disease, diabetes, and high blood pressure? Blood pressure and heart disease High blood pressure causes heart disease and increases the risk of stroke. This is more likely to develop in people who have high blood pressure readings, are of descent, or are overweight. Have your blood pressure checked: ?Every 3 5 years if you are 18 39 years of age. ?Every year if you are 40 years old or older. Diabetes Have regular diabetes screenings. This checks your fasting blood sugar level. Have the screening done: Once every three years after age 40 if you are at a normal weight and have a low risk for diabetes. More often and at a younger age if you are overweight or have a high risk for diabetes. What should I know about preventing infection? Hepatitis B If you have a higher risk for hepatitis B, you should be screened for this virus. Talk with your health care provider to find out if you are at risk for hepatitis B infection. Hepatitis C Testing is recommended for: Everyone born from 1945 through 1965. Anyone with known risk factors for hepatitis C. Sexually transmitted infections (STIs) Get screened for STIs, including gonorrhea and chlamydia, if: ?You are sexually active and are younger than 24 years of age. ?You are older than 24 years of age and your health care provider tells you that you are at risk for this type of infection. ?Your sexual activity has changed since you were last screened, and you are at increased risk for chlamydia or gonorrhea. Ask your health care provider if you are at risk. Ask your health care provider about whether you are at high risk for HIV. Your health care provider may recommend a prescription medicine to help prevent HIV infection. If you choose to take medicine to prevent HIV, you should first get tested for HIV. You should then be tested every 3 months for as long as you are taking the medicine. If you are about to stop having your period (premenopausal) and you may become , seek counseling before you get . Take 400 to 800 micrograms (mcg) of folic acid every day if you become . Ask for control (contraception) if you want to prevent . Osteoporosis and menopause Osteoporosis is a disease in which the bones lose minerals and strength with aging. This can result in bone fractures. If you are 65 years old or older, or if you are at risk for osteoporosis and fractures, ask your health care provider if you should: Be screened for bone loss. Take a calcium or vitamin D supplement to lower your risk of fractures. Be given hormone replacement therapy (HRT) to treat symptoms of menopause. Follow these instructions at home: Lifestyle Do not use any products that contain nicotine or tobacco, such as cigarettes, e-cigarettes, and chewing tobacco. If you need help quitting, ask your health care provider. Do not use street drugs. Do not share needles. Ask your health care provider for help if you need support or information about quitting drugs. Alcohol use Do not drink alcohol if: ?Your health care provider tells you not to drink. ?You are , may be , or are planning to become . If you drink alcohol: ?Limit how much you use to 0 1 drink a day. ?Limit intake if you are . Be aware of how much alcohol is in your drink. In the [place] one drink equals one 12 oz bottle of beer (355 mL), one 5 oz glass of wine (148 mL), or one 1 oz glass of hard liquor (44 mL). General instructions Schedule regular health, dental, and eye exams. Stay current with your vaccines. Tell your health care provider if: ?You often feel depressed. ?You have ever been abused or do not feel safe at home. Summary Adopting a healthy lifestyle and getting preventive care are important in promoting health and wellness. Follow your health care provider's instructions about healthy diet, exercising, and getting tested or screened for diseases. Follow your health care provider's instructions on monitoring your cholesterol and blood pressure. This information is not intended to replace advice given to you by your health care provider. Make sure you discuss any questions you have with your health care provider. Document Released: 11/03/2011 Document Revised: 04/13/2019 Document Reviewed: 04/13/2019 [employer] Patient Education 2020 [employer]. Follow Up Care 06/26/2021 18:00:45 With:Leigh Ann Covington CNP Address: When: only if needed [facility] Primary Care Evaluation + Plan note Note Date & Type Note Facility Evaluation + Plan note Future Appointments Appointment Date:10/03/2021 01:00:00 PM Scheduled Provider:Naya ABDI Location:[facility] Appointment Type: JOANN [facility] Primary Care Evaluation + Plan note LaboratoryRadiology Note Date & Type Note Facility Evaluation + Plan note Future Appointments Appointment Date:03/25/2023 07:00:00 AM Scheduled Provider:Princess Dumont Location:[facility] Appointment Type: Open Future Scheduled TestsU Protein/Creat Ratio 02/19/23HgbA1c 02/19/23Microalbumin Level Urine 02/19/23TSH With T4fr Reflex 02/19/23Vitamin D 25 Hydroxy 02/19/23CBC w/ Auto Diff 02/19/23Comprehensive Metabolic Panel 02/19/23Lipid Panel 02/19/23XR Spine Cervical 4 or 5 Views 02/19/23 [facility] Hospital course Narrative Note Date & Type Note Facility Hospital course Narrative No data available for this section [facility] Hospital Discharge instructions Note Date & Type Note Facility Hospital Discharge instructions No data available for this section [facility] Progress note Note Date & Type Note Facility Progress note No data available for this section [facility] Summary Purpose Family History No Family History Records Found No data available for this section No Family History Records Found No data available for this section No Family History Records Found Advance Directives No Advanced Directives Records FoundNo Advanced Directives Records FoundNo Advanced Directives Records Found Additional Source Comments INFORMATION SOURCE (unrecogn ized section and content) DATE CREATED AUTHOR 08/01/2022 [facility] DATE CREATED AUTHOR AUTHOR'S ORGANIZ ATION 03/20/2023 [facility] EPIC DATE CREATED AUTHOR AUTHOR'S ORGANIZ ATION 03/28/2023 [facility] Patient Care team informatio n (unrecognized section and content) Personnel Name: Princess Dumont Address: Address: [address] [place] [address]- Personnel Name: Princess Dumont Address: Address: [address] [place] [address]- FOR RECORDS PERTAINING TO PATIENTS WHO ARE OR HAVE BEEN ENROLLED IN A CHEMICAL DEPENDENCY/SUBSTANCEABUSE PROGRAM, SOME INFORMATION MAY BE OMITTED. This clinical summary was aggregated from multiple sources. Caution should be exercised in using it in the provision of clinical care. This summary normalizes information from multiple sources, and as a consequence, information in this document may materially change the coding, format and clinical context of patient data. In addition, data may be omitted in some cases. CLINICAL DECISIONS SHOULD BE BASED ON THE PRIMARY CLINICAL RECORDS. [employer] [facility]. provides no warranty or guarantee of the accuracy or completeness of information in this document.
[2023-06-06 09:49] LABS: Estimated Average Glucose 88 mg/dL; Glycohemoglobin A1C 4.7 % (4.5-6.2)
[2023-06-06 10:02] LABS: Estimated GFR (African America >60 (>=60); Estimated GFR (Non-African Ame >60 (>=60)
[2023-06-07 08:10] LABS: Prolactin 11.8 ng/mL (4.8-33.4)
[2023-06-07 09:11] LABS: HBsAg Screen Negative (Negative); HCV Antibody Non Reactive (Non Reactive); HIV Ab/p24 Ag Screen Non Reactive (Non Reactive); Hep B Core Ab, Tot Negative (Negative); Rapid Plasma Reagin, Quant Non Reactive titer (NonRea<1:1)
[2023-06-07 12:11] LABS: Rubella Antibodies, IgG 1.62 index (Immune >0.99); Varicella-Zoster V Ab, IgG 3380 index (Immune >165)
[2023-06-09 00:07] LABS: Neisseria gonorrhoeae, NAA Negative (Negative)
[2023-06-11 02:08] LABS: Anti-Mullerian Hormone (AMH) 1.94 ng/mL (.)
== END 2023-06-06 09:09 | disposition home or self-care (01) ==
LOC: LAB 09:08
DX: Z11.3 Encounter for screening for infections with a predominantly sexual mode of transmission (principal); E28.9 Ovarian dysfunction, unspecified
CPT/HCPCS: 36415; 81241; 82306; 82397; 82565; 83036; 84146; 84443; 84520; 85210; 86592; 86704; 86762; 86787; 86803; 86900; 86901; 87340; 87389; 87491; 87591

== ENCOUNTER 2023-06-23 13:06 | Outpatient (OUT) | payer OTHER, SELFPAY | END 2023-06-23 13:07 | disposition home or self-care (01) | LOC: LAB 13:06 | DX: E28.9 Ovarian dysfunction, unspecified (principal); Z11.3 Encounter for screening for infections with a predominantly sexual mode of transmission; N97.0 Female infertility associated with anovulation | CPT/HCPCS: 36415; 86850 ==

== ENCOUNTER 2023-06-29 14:33 | Outpatient (OUT) | payer OTHER, SELFPAY ==
[2023-06-29 15:17] LABS: HCG Quantitative <1 mIU/mL
== END 2023-06-29 14:34 | disposition home or self-care (01) ==
DX: Z01.812 Encounter for preprocedural laboratory examination (principal); Z32.00 Encounter for pregnancy test, result unknown
CPT/HCPCS: 36415; 84702

== ENCOUNTER 2023-09-05 08:50 | Outpatient (OUT) | payer OTHER, SELFPAY ==
--- OUTSIDE RECORDS SUMMARY | 2023-09-05 08:52 | XMS_ITS | CCD ---
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 [address] [place] [address] Dr. Meghna Alas IG # 0.02 10e3/ul Normal 0.00-0.03 [facility] Comment on above: Performed By: #### C BC #### [facility] [address] [place] [address] Dr. Meghna Alas IG % 0.3 % Normal 0.0-0.5 [facility] Comment on above: Performed By: #### C BC #### [facility] [address] [place] [address] Dr. Meghna Alas LYMPH # 1.7 103/ul Normal 1.2-3.8 [facility] Comment on above: Performed By: #### C BC #### [facility] [address] [place] [address] Dr. Meghna Alas Lymphocytes/100 WBC (Bld) 27.7 % Normal 20.5-60.0 [facility] Comment on above: Performed By: #### C BC #### [facility] [address] [place] [address] Dr. Meghna Alas MANUAL DIFF REQ NO Normal [facility] Comment on above: Performed By: #### C BC #### [facility] [address] [place] [address] Dr. Meghna Alas MCH (RBC) [Entitic mass] 30.7 pg Normal 26.7-34.0 [facility] Comment on above: Performed By: #### C BC #### [facility] [address] [place] [address] Dr. Meghna Alas MCHC (RBC) [Mass/Vol] 34.2 g/dL Normal 29.9-35.2 [facility] Comment on above: Performed By: #### C BC #### [facility] [address] [place] [address] Dr. Meghna Alas MCV (RBC) [Entitic vol] 89.7 fL Normal 81.0-99.0 [facility] Comment on above: Performed By: #### C BC #### [facility] [address] [place] [address] Dr. Meghna Alas MONO # 0.4 103/ul Normal 0.3-0.8 [facility] Comment on above: Performed By: #### C BC #### [facility] [address] [place] [address] Dr. Meghna Alas Monocytes/100 WBC (Bld) 7.1 % Normal 1.7-12.0 [facility] Comment on above: Performed By: #### C BC #### [facility] [address] [place] [address] Dr. Meghna Alas NEUT # 3.7 103/ul Normal 1.4-6.5 [facility] Comment on above: Performed By: #### C BC #### [facility] [address] [place] [address] Dr. Meghna Alas Neutrophils/100 WBC (Bld) 60.4 % Normal 43.0-75.0 [facility] Comment on above: Performed By: #### C BC #### [facility] [address] [place] [address] Dr. Meghna Alas Platelet mean volume (Bld) [Entitic vol] 11.3 fL Normal 9.5-13.5 [facility] Comment on above: Performed By: #### C BC #### [facility] [address] [place] [address] Dr. Meghna Alas PLT 154 103/ul Normal 150-450 [facility] Comment on above: Performed By: #### C BC #### [facility] [address] [place] [address] Dr. Meghna Alas RBC 4.86 106/ul Normal 4.20-5.40 [facility] Comment on above: Performed By: #### C BC #### [facility] [address] [place] [address] Dr. Meghna Alas WBC 6.2 103/ul Normal 4.0-11.0 [facility] Comment on above: Performed By: #### C BC #### [facility] [address] [place] [address] Dr. Meghna Alas FREE T4on 07-26-2022 Free T4 [Mass/Vol] 1.04 ng/dL Normal 0.76-1.46 [facility] Comment on above: Performed By: #### F T4 #### [facility] [address] [place] [address] Dr. Meghna Alas GLYCOHEMOGLOBIN A1Con 2022 ADA RECOMMENDATION SEE BELOW Normal [facility] Comment on above: Result Comment: ADA RECOMMENDED LIMIT 4.0 - 6.0 ADA THERAPEUTIC TARGET < 7.0 ACTION SUGGESTED > 7.0 Performed By: #### A 1C #### [facility] [address] [place] [address] Dr. Meghna Alas Glucose [Mass/Vol] 82 mg/dL Normal [facility] Comment on above: Performed By: #### A 1C #### [facility] [address] [place] [address] Dr. Meghna Alas HbA1c (Bld) [Mass fraction] 4.5 % Normal 4.5-6.2 [facility] Comment on above: Performed By: #### A 1C #### [facility] [address] [place] [address] Dr. Meghna Alas TSHon 07-26-2022 TSH 1.522 uIU/mL Normal 0.358-3.740 [facility] Comment on above: Performed By: #### T SH #### [facility] [address] [place] [address] Dr. Meghna Alas Vital Signs Date Time Vital Sign Value Performing Clinician Doriei arturo 08-27-2023 17:44-0400 Blood Pressure Location Princess Rapp [facility] 08-27-2023 17:44-0400 Body temperature 98.06 [degF] Princess Rapp [facility] 08-27-2023 17:44-0400 Diastolic blood pressure 76 mm[Hg] Princess Rapp [facility] 08-27-2023 17:44-0400 Heart rate 85 /min Princess Rapp [facility] 08-27-2023 17:44-0400 Respiratory rate 14 /min Princess Rapp [facility] 08-27-2023 17:44-0400 SaO2% (BldA) [Mass fraction] 99 % Princess Rapp [facility] 08-27-2023 17:44-0400 Systolic blood pressure 110 mm[Hg] Princess Rapp [facility] 02-19-2023 07:41-0400 Body temperature 97.7 [degF] Princess Rapp [facility] 02-19-2023 07:41-0400 Diastolic blood pressure 70 mm[Hg] Princess Rapp [facility] 02-19-2023 07:41-0400 Heart rate 81 /min Princess Rapp [facility] 02-19-2023 07:41-0400 SaO2% (BldA) [Mass fraction] 99 % Princess Rapp [facility] 02-19-2023 07:41-0400 Systolic blood pressure 110 mm[Hg] Princess Rapp [facility] 07-24-2021 16:57-0400 Blood Pressure Location Leigh Ann Covington [facility] 07-24-2021 16:57-0400 Body temperature 97.7 [degF] Leigh Ann Covington [facility] 07-24-2021 16:57-0400 Diastolic blood pressure 68 mm[Hg] Leigh Ann Covington [facility] 07-24-2021 16:57-0400 Heart rate 88 /min Leigh Ann Covington [facility] 07-24-2021 16:57-0400 SaO2% (BldA) [Mass fraction] 99 % Leigh Ann Covington [facility] 07-24-2021 16:57-0400 Systolic blood pressure 122 mm[Hg] Leigh Ann Covington [facility] Encounters Encounter Date Encounter Type Care Provider Facility Start: 10-21-2023 ambulatory Princess Rapp Facil ity:[facility] Start: 08-27-2023 End: 08-28-2023 ambulatory Princess Rapp Facility:[facility] Start: 08-27-2023 End: 08-27-2023 Patient encounter procedure Princess Rapp [facility] Start: 03-25-2023 End: 03-26-2023 ambulatory Princess Rapp Facility:[facility] Start: 03-25-2023 End: 03-25-2023 Patient encounter procedure Princess Rapp [facility] Start: 03-18-2023 End: 03-18-2023 ambulatory RULA SMITH Not Available Start: 02-19-2023 End: 02-20-2023 ambulatory Princess Rapp Facility:[facility] Start: 02-19-2023 End: 02-19-2023 Patient encounter procedure Princess Rapp [facility] Start: 07-26-2022 End: 07-27-[address] RULA SMITH . Facility:[facility] Start: 07-23-2022 End: 07-23-[address] RULA SMITH . Facility: Start: 07-24-2021 End: 07-24-2021 Patient encounter procedure Leigh Ann Covington [facility] Procedures Date Procedure Procedure Detail Performing Clinician Start: 11-15-2015 Right Knee Arthrosco py with Medial Meniscal Repair Leigh Ann Covington Start: 07-28-2013 right knee anterior cruciate ligament allograft reconstruction with [id number], debridment medial meniscus tear, patellofemoral chondroplasty-Grade I-II Leigh Ann Covington Tonsillectomy Leigh Ann Covington tubes in the ears Leigh Ann bartholomew Immunizations Immunization Date Immunization Notes Care Provider Fa [facility] 12-20-2009 meningococcal ACWY vaccine, unspecified formulation Princess Rapp [facility] 12-20-2009 tetanus toxoid, reduced diphtheria toxoid, and acellular pertussis vaccine, adsorbed Princess Rapp [facility] 12-20-2009 varicella virus vaccine Princess Rapp [facility] NEGATED: Highlighted row has not occurred!06-26-2021 influenza virus vaccine, unspecified formulation Leigh Ann Covington [facility] NEGATED: Highlighted row has not occurred!06-26-2021 SARS-CoV-2 (COVID-19) Ad26 vaccine, recombinant Leigh Ann Covington [facility] NEGATED: Highlighted row has not occurred!01-29-2021 influenza virus vaccine, unspecified formulation Leigh Ann Covington [facility] NEGATED: Highlighted row has not occurred!01-29-2021 SARS-CoV-2 (COVID-19) Ad26 vaccine, recombinant Leigh Ann Covington [facility] NEGATED: Highlighted row has not occurred!05-03-2019 influenza virus vaccine, live, attenuated, for intranasal use Leigh Ann Covington [facility] NEGATED: Highlighted row has not occurred!09-30-2018 influenza virus vaccine, unspecified formulation Leigh Ann Covington [facility] Payers Date Payer Category Payer Unknown [id number] 1997 Unknown [id number] [id number] 1997 Unknown [id number] [id number] [id number] 1997 Unknown [id number] 1997 Unknown [id number] 2.16.8 [id number] 1997 Unknown [id number] 2.16.8 [id number] 1997 Unknown [id number] 2.16.8 [id number] 1997 Unknown [id number] [id number] 1959 Unknown [id number] 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 Date Type Detail Facility Start: 07-24-2021 End: 08-27-2023 Tobacco smoking status Never smoked tobacco (finding) [facility] Tobacco smoking status Never [facility] Sex Assigned At Female [facility] Functional Status Date Assessment Result Facility 08-27-2023 Functional Status N/A [facility] 02-19-2023 Functional Status N/A [facility] Hospital Discharge instructions 08-27-2023 Note Date & Type Note Facility 08-27-2023 Hospital Discharg e instructions Patient Education 08/27/2023 19:11:57 Carbohydrate Counting for Diabetes Mellitus, Adult Carbohydrate Counting for Diabetes Mellitus, Adult Carbohydrate counting is a method of keeping track of how many carbohydrates you eat. Eating carbohydrates increases the amount of sugar (glucose) in the blood. Counting how many carbohydrates you eat improves how well you manage your blood glucose. This, in turn, helps you manage your diabetes. Carbohydrates are measured in grams (g) per serving. It is important to know how many carbohydrates (in grams or by serving size) you can have in each meal. This is different for every person. A dietitian can help you make a meal plan and calculate how many carbohydrates you should have at each meal and snack. What foods contain carbohydrates? Carbohydrates are found in the following foods: Grains, such as breads and cereals. Dried beans and soy products. Starchy vegetables, such as potatoes, peas, and corn. Fruit and fruit juices. Milk and yogurt. Sweets and snack foods, such as cake, cookies, candy, chips, and soft drinks. How do I count carbohydrates in foods? There are two ways to count carbohydrates in food. You can read food labels or learn standard serving sizes of foods. You can use either of these methods or a combination of both. Using the Nutrition Facts label The Nutrition Facts list is included on the labels of almost all packaged foods and beverages in the [place]. It includes: The serving size. Information about nutrients in each serving, including the grams of carbohydrate per serving. To use the Nutrition Facts, decide how many servings you will have. Then, multiply the number of servings by the number of carbohydrates per serving. The resulting number is the total grams of carbohydrates that you will be having. Learning the standard serving sizes of foods When you eat carbohydrate foods that are not packaged or do not include Nutrition Facts on the label, you need to measure the servings in order to count the grams of carbohydrates. Measure the foods that you will eat with a food scale or measuring cup, if needed. Decide how many standard-size servings you will eat. Multiply the number of servings by 15. For foods that contain carbohydrates, one serving equals 15 g of carbohydrates. ?For example, if you eat 2 cups or 10 oz (300 g) of strawberries, you will have eaten 2 servings and 30 g of carbohydrates (2 servings x 15 g = 30 g). For foods that have more than one food mixed, such as soups and casseroles, you must count the carbohydrates in each food that is included. The following list contains standard serving sizes of common carbohydrate-rich foods. Each of these servings has about 15 g of carbohydrates: 1 slice of bread. 1 six-inch (15 cm) tortilla. ? cup or 2 oz (53 g) cooked rice or pasta. cup or 3 oz (85 g) cooked or canned, drained and rinsed beans or lentils. cup or 3 oz (85 g) starchy vegetable, such as peas, corn, or squash. cup or 4 oz (120 g) hot cereal. cup or 3 oz (85 g) boiled or mashed potatoes, or or 3 oz (85 g) of a large baked potato. cup or 4 fl oz (118 mL) fruit juice. 1 cup or 8 fl oz (237 mL) milk. 1 small or 4 oz (106 g) apple. or 2 oz (63 g) of a medium banana. 1 cup or 5 oz (150 g) strawberries. 3 cups or 1 oz (28.3 g) popped popcorn. What is an example of carbohydrate counting? To calculate the grams of carbohydrates in this sample meal, follow the steps shown below. Sample meal 3 oz (85 g) chicken breast. ? cup or 4 oz (106 g) brown rice. cup or 3 oz (85 g) corn. 1 cup or 8 fl oz (237 mL) milk. 1 cup or 5 oz (150 g) strawberries with sugar-free whipped topping. Carbohydrate calculation 1.Identify the foods that contain carbohydrates: Rice. [place]. Milk. Strawberries. 2.Calculate how many servings you have of each food: 2 servings rice. 1 serving corn. 1 serving milk. 1 serving strawberries. 3.Multiply each number of servings by 15 servings rice x 15 g = 30 g. 1 serving corn x 15 g = 15 g. 1 serving milk x 15 g = 15 g. 1 serving strawberries x 15 g = 15 g. 4.Add together all of the amounts to find the total grams of carbohydrates eaten: 30 g + 15 g + 15 g + 15 g = 75 g of carbohydrates total. What are tips for following this plan? Shopping Develop a meal plan and then make a shopping list. Buy fresh and frozen vegetables, fresh and frozen fruit, dairy, eggs, beans, lentils, and whole grains. Look at food labels. Choose foods that have more fiber and less sugar. Avoid processed foods and foods with added sugars. Meal planning Aim to have the same number of grams of carbohydrates at each meal and for each snack time. Plan to have regular, balanced meals and snacks. Where to find more information [place] [employer]: diabetes.org Centers for Disease Control and Prevention: cdc.gov Academy of Nutrition and Dietetics: eatright.org Association of Diabetes Care & Education Specialists: diabeteseducator.org Summary Carbohydrate counting is a method of keeping track of how many carbohydrates you eat. Eating carbohydrates increases the amount of sugar (glucose) in your blood. Counting how many carbohydrates you eat improves how well you manage your blood glucose. This helps you manage your diabetes. A dietitian can help you make a meal plan and calculate how many carbohydrates you should have at each meal and snack. This information is not intended to replace advice given to you by your health care provider. Make sure you discuss any questions you have with your health care provider. Document Revised: 11/21/2020 Document Reviewed: 11/21/2020 [employer] Patient Education 2022 [employer] 08/27/2023 19:11:56 Calorie Counting for Weight Loss Calorie Counting for Weight Loss Calories are units of energy. Your body needs a certain number of calories from food to keep going throughout the day. When you eat or drink more calories than your body needs, your body stores the extra calories mostly as fat. When you eat or drink fewer calories than your body needs, your body tiwari fat to get the energy it needs. Calorie counting means keeping track of how many calories you eat and drink each day. Calorie counting can be helpful if you need to lose weight. If you eat fewer calories than your body needs, you should lose weight. Ask your health care provider what a healthy weight is for you. For calorie counting to work, you will need to eat the right number of calories each day to lose a healthy amount of weight per week. A dietitian can help you figure out how many calories you need in a day and will suggest ways to reach your calorie goal. A healthy amount of weight to lose each week is usually 1 2 lb (0.5 0.9 kg). This usually means that your daily calorie intake should be reduced by 500 750 calories. Eating 1,200 1,500 calories a day can help most women lose weight. Eating 1,500 1,800 calories a day can help most men lose weight. What do I need to know about calorie counting? Work with your health care provider or dietitian to determine how many calories you should get each day. To meet your daily calorie goal, you will need to: Find out how many calories are in each food that you would like to eat. Try to do this before you eat. Decide how much of the food you plan to eat. Keep a food log. Do this by writing down what you ate and how many calories it had. To successfully lose weight, it is important to balance calorie counting with a healthy lifestyle that includes regular activity. Where do I find calorie information? The number of calories in a food can be found on a Nutrition Facts label. If a food does not have a Nutrition Facts label, try to look up the calories online or ask your dietitian for help. Remember that calories are listed per serving. If you choose to have more than one serving of a food, you will have to multiply the calories per serving by the number of servings you plan to eat. For example, the label on a package of bread might say that a serving size is 1 slice and that there are 90 calories in a serving. If you eat 1 slice, you will have eaten 90 calories. If you eat 2 slices, you will have eaten 180 calories. How do I keep a food log? After each time that you eat, record the following in your food log as soon as possible: What you ate. Be sure to include toppings, sauces, and other extras on the food. How much you ate. This can be measured in cups, ounces, or number of items. How many calories were in each food and drink. The total number of calories in the food you ate. Keep your food log near you, such as in a pocket-sized notebook or on an bonifacio or website on your mobile phone. Some programs will calculate calories for you and show you how many calories you have left to meet your daily goal. What are some portion-control tips? Know how many calories are in a serving. This will help you know how many servings you can have of a certain food. Use a measuring cup to measure serving sizes. You could also try weighing out portions on a kitchen scale. With time, you will be able to estimate serving sizes for some foods. Take time to put servings of different foods on your favorite plates or in your favorite bowls and cups so you know what a serving looks like. Try not to eat straight from a food's packaging, such as from a bag or box. Eating straight from the package makes it hard to see how much you are eating and can lead to overeating. Put the amount you would like to eat in a cup or on a plate to make sure you are eating the right portion. Use smaller plates, glasses, and bowls for smaller portions and to prevent overeating. Try not to multitask. For example, avoid watching TV or using your computer while eating. If it is time to eat, sit down at a table and enjoy your food. This will help you recognize when you are full. It will also help you be more mindful of what and how much you are eating. What are tips for following this plan? Reading food labels Check the calorie count compared with the serving size. The serving size may be smaller than what you are used to eating. Check the source of the calories. Try to choose foods that are high in protein, fiber, and vitamins, and low in saturated fat, trans fat, and sodium. Shopping Read nutrition labels while you shop. This will help you make healthy decisions about which foods to buy. Pay attention to nutrition labels for low-fat or fat-free foods. These foods sometimes have the same number of calories or more calories than the full-fat versions. They also often have added sugar, starch, or salt to make up for flavor that was removed with the fat. Make a grocery list of lower-calorie foods and stick to it. Cooking Try to cook your favorite foods in a healthier way. For example, try baking instead of frying. Use low-fat dairy products. Meal planning Use more fruits and vegetables. One-half of your plate should be fruits and vegetables. Include lean proteins, such as chicken, turkey, and fish. Lifestyle Each week, aim to do one of the followin minutes of moderate exercise, such as walking. 75 minutes of vigorous exercise, such as running. General information Know how many calories are in the foods you eat most often. This will help you calculate calorie counts faster. Find a way of tracking calories that works for you. Get creative. Try different apps or programs if writing down calories does not work for you. What foods should I eat? Eat nutritious foods. It is better to have a nutritious, high-calorie food, such as an avocado, than a food with few nutrients, such as a bag of potato chips. Use your calories on foods and drinks that will fill you up and will not leave you hungry soon after eating. ?Examples of foods that fill you up are nuts and nut butters, vegetables, lean proteins, and high-fiber foods such as whole grains. High-fiber foods are foods with more than 5 g of fiber per serving. Pay attention to calories in drinks. Low-calorie drinks include water and unsweetened drinks. The items listed above may not be a complete list of foods and beverages you can eat. Contact a dietitian for more information. What foods should I limit? Limit foods or drinks that are not good sources of vitamins, minerals, or protein or that are high in unhealthy fats. These include: Candy. Other sweets. Sodas, specialty coffee drinks, alcohol, and juice. The items listed above may not be a complete list of foods and beverages you should avoid. Contact a dietitian for more information. How do I count calories when eating out? Pay attention to portions. Often, portions are much larger when eating out. Try these tips to keep portions smaller: ?Consider sharing a meal instead of getting your own. ?If you get your own meal, eat only half of it. Before you start eating, ask for a container and put half of your meal into it. ?When available, consider ordering smaller portions from the menu instead of full portions. Pay attention to your food and drink choices. Knowing the way food is cooked and what is included with the meal can help you eat fewer calories. ?If calories are listed on the menu, choose the lower-calorie options. ?Choose dishes that include vegetables, fruits, whole grains, low-fat dairy products, and lean proteins. ?Choose items that are boiled, broiled, grilled, or steamed. Avoid items that are buttered, battered, fried, or served with cream sauce. Items labeled as crispy are usually fried, unless stated otherwise. ?Choose water, low-fat milk, unsweetened iced tea, or other drinks without added sugar. If you want an alcoholic beverage, choose a lower-calorie option, such as a glass of wine or light beer. ?Ask for dressings, sauces, and syrups on the side. These are usually high in calories, so you should limit the amount you eat. ?If you want a salad, choose a garden salad and ask for grilled meats. Avoid extra toppings such as alegre, cheese, or fried items. Ask for the dressing on the side, or ask for olive oil and vinegar or lemon to use as dressing. Estimate how many servings of a food you are given. Knowing serving sizes will help you be aware of how much food you are eating at restaurants. Where to find more information Centers for Disease Control and Prevention: www.cdc.gov [place] Department of Agriculture: myplate.gov Summary Calorie counting means keeping track of how many calories you eat and drink each day. If you eat fewer calories than your body needs, you should lose weight. A healthy amount of weight to lose per week is usually 1 2 lb (0.5 0.9 kg). This usually means reducing your daily calorie intake by 500 750 calories. The number of calories in a food can be found on a Nutrition Facts label. If a food does not have a Nutrition Facts label, try to look up the calories online or ask your dietitian for help. Use smaller plates, glasses, and bowls for smaller portions and to prevent overeating. Use your calories on foods and drinks that will fill you up and not leave you hungry shortly after a meal. This information is not intended to replace advice given to you by your health care provider. Make sure you discuss any questions you have with your health care provider. Document Revised: 05/31/2020 Document Reviewed: 05/31/2020 [employer] Patient Education 2022 [employer]. 08/27/2023 19:11:54 Exercising to Lose Weight Exercising to Lose Weight Getting regular exercise is important for everyone. It is especially important if you are overweight. Being overweight increases your risk of heart disease, stroke, diabetes, high blood pressure, and several types of cancer. Exercising, and reducing the calories you consume, can help you lose weight and improve fitness and health. Exercise can be moderate or vigorous intensity. To lose weight, most people need to do a certain amount of moderate or vigorous-intensity exercise each week. How can exercise affect me? You lose weight when you exercise enough to burn more calories than you eat. Exercise also reduces body fat and builds muscle. The more muscle you have, the more calories you burn. Exercise also: Improves mood. Reduces stress and tension. Improves your overall fitness, flexibility, and endurance. Increases bone strength. Moderate-intensity exercise Moderate-intensity exercise is any activity that gets you moving enough to burn at least three times more energy (calories) than if you were sitting. Examples of moderate exercise include: Walking a mile in 15 minutes. Doing light yard work. Biking at an easy pace. Most people should get at least 150 minutes of moderate-intensity exercise a week to maintain their body weight. Vigorous-intensity exercise Vigorous-intensity exercise is any activity that gets you moving enough to burn at least six times more calories than if you were sitting. When you exercise at this intensity, you should be working hard enough that you are not able to carry on a conversation. Examples of vigorous exercise include: Running. Playing a team sport, such as football, basketball, and soccer. Jumping rope. Most people should get at least 75 minutes a week of vigorous exercise to maintain their body weight. What actions can I take to lose weight? The amount of exercise you need to lose weight depends on: Your age. The type of exercise. Any health conditions you have. Your overall physical ability. Talk to your health care provider about how much exercise you need and what types of activities are safe for you. Nutrition Make changes to your diet as told by your health care provider or diet and pet nutrition specialist (dietitian). This may include: ?Eating fewer calories. ?Eating more protein. ?Eating less unhealthy fats. ?Eating a diet that includes fresh fruits and vegetables, whole grains, low-fat dairy products, and lean protein. ?Avoiding foods with added fat, salt, and sugar. Drink plenty of water while you exercise to prevent dehydration or heat stroke. Activity Choose an activity that you enjoy and set realistic goals. Your health care provider can help you make an exercise plan that works for you. Exercise at a moderate or vigorous intensity most days of the week. ?The intensity of exercise may vary from person to person. You can tell how intense a workout is for you by paying attention to your breathing and heartbeat. Most people will notice their breathing and heartbeat get faster with more intense exercise. Do resistance training twice each week, such as: ?Push-ups. ?Sit-ups. ?Lifting weights. ?Using resistance bands. Getting short amounts of exercise can be just as helpful as long, structured periods of exercise. If you have trouble finding time to exercise, try doing these things as part of your daily routine: ?Get up, stretch, and walk around every 30 minutes throughout the day. ?Go for a walk during your lunch break. ?Park your car farther away from your destination. ?If you take public transportation, get off one stop early and walk the rest of the way. ?Make phone calls while standing up and walking around. ?Take the stairs instead of elevators or escalators. Wear comfortable clothes and shoes with good support. Do not exercise so much that you hurt yourself, feel dizzy, or get very short of breath. Where to find more information U.[place]. Department of Health and Human Services: www.hhs.gov Centers for Disease Control and Prevention: www.cdc.gov Contact a health care provider: Before starting a new exercise program. If you have questions or concerns about your weight. If you have a medical problem that keeps you from exercising. Get help right away if: You have any of the following while exercising: ?Injury. ?Dizziness. ?Difficulty breathing or shortness of breath that does not go away when you stop exercising. ?Chest pain. ?Rapid heartbeat. These symptoms may represent a serious problem that is an emergency. Do not wait to see if the symptoms will go away. Get medical help right away. Call your local emergency services (911 in the [place] Do not drive yourself to the hospital. Summary Getting regular exercise is especially important if you are overweight. Being overweight increases your risk of heart disease, stroke, diabetes, high blood pressure, and several types of cancer. Losing weight happens when you burn more calories than you eat. Reducing the amount of calories you eat, and getting regular moderate or vigorous exercise each week, helps you lose weight. This information is not intended to replace advice given to you by your health care provider. Make sure you discuss any questions you have with your health care provider. Document Revised: 06/16/2021 Document Reviewed: 06/16/2021 [employer] Patient Education 2022 [employer]. 08/27/2023 19:11:53 BMI for Adults BMI for Adults What is BMI? Body mass index (BMI) is a number that is calculated from a person's weight and height. BMI can help estimate how much of a person's weight is composed of fat. BMI does not measure body fat directly. Rather, it is an alternative to procedures that directly measure body fat, which can be difficult and expensive. BMI can help identify people who may be at higher risk for certain medical problems. What are BMI measurements used for? BMI is used as a screening tool to identify possible weight problems. It helps determine whether a person is obese, overweight, a healthy weight, or underweight. BMI is useful for: Identifying a weight problem that may be related to a medical condition or may increase the risk for medical problems. Promoting changes, such as changes in diet and exercise, to help reach a healthy weight. BMI screening can be repeated to see if these changes are working. How is BMI calculated? BMI involves measuring your weight in relation to your height. Both height and weight are measured, and the BMI is calculated from those numbers. This can be done either in [place] ([place] or metric measurements. Note that charts and online BMI calculators are available to help you find your BMI quickly and easily without having to do these calculations yourself. To calculate your BMI in [place] ([place] measurements: 1.Measure your weight in pounds (lb). 2.Multiply the number of pounds by 703. For example, for a person who weighs 180 lb, multiply that number by 703, which equals 126,540. 3.Measure your height in inches. Then multiply that number by itself to get a measurement called inches squared. For example, for a person who is 70 inches tall, the inches squared measurement is 70 inches x 70 inches, which equals 4,900 inches squared. 4.Divide the total from step 2 (number of lb x 703) by the total from step 3 (inches squared): 126,540 4,900 = 25.8. This is your BMI. To calculate your BMI in metric measurements: 1.Measure your weight in kilograms (kg). 2.Measure [...] 3.1 = 22.6. This is your BMI. What do the results mean? BMI charts are used to identify whether you are underweight, normal weight, overweight, or obese. The following guidelines will be used: Underweight: BMI less than 18.5. Normal weight: BMI between 18.5 and 24.9. Overweight: BMI between 25 and 29.9. Obese: BMI of 30 or above. Keep these notes in mind: Weight includes both fat and muscle, so [...] the same way for men and women. Where to find more information For more information about BMI, including tools to quickly calculate your BMI, go to these websites: Centers for Disease Control and Prevention: www.cdc.gov [place] [employer]: www.heart.org National Heart, Lung, and Blood [place]: www.nhlbi.nih.gov Summary Body mass index (BMI) is a number that is calculated from a person's weight and height. BMI may help estimate how much of a person's weight is composed of fat. BMI can help identify those who may be at higher risk for certain medical problems. BMI can be measured using [place] measurements or metric measurements. BMI charts are used to identify whether you are underweight, normal weight, overweight, or obese. This information is not intended to replace advice given to you by your health care provider. Make sure you discuss any questions you have with your health care provider. Document Revised: 01/11/2020 Document Reviewed: 11/18/2019 [employer] Patient Education 2022 [employer]. 08/27/2023 19:11:48 Musculoskeletal Pain Musculoskeletal Pain Musculoskeletal pain refers to aches and pains in your bones, joints, muscles, and the tissues that surround them. This pain can occur in any part of the body. It can last for a short time (acute) or a long time (chronic). A physical exam, lab tests, and imaging studies may be done to find the cause of your musculoskeletal pain. Follow these instructions at home: Lifestyle Try to control or lower your stress levels. Stress increases muscle tension and can worsen musculoskeletal pain. It is important to recognize when you are anxious or stressed and learn ways to manage it. This may include: ?Meditation or yoga. ?Cognitive or behavioral therapy. ?Acupuncture or massage therapy. You may continue all activities unless the activities cause more pain. When the pain gets better, slowly resume your normal activities. Gradually increase the intensity and duration of your activities or exercise. Managing pain, stiffness, and swelling Treatment may include medicines for pain and inflammation that are taken by mouth or applied to the skin. Take tiig-ayh-skirocy and prescription medicines only as told by your health care provider. When your pain is severe, bed rest may be helpful. Lie or sit in any position that is comfortable, but get out of bed and walk around at least every couple of hours. If directed, apply heat to the affected area as often as told by your health care provider. Use the heat source that your health care provider recommends, such as a moist heat pack or a heating pad. ?Place a towel between your skin and the heat source. ?Leave the heat on for 20 30 minutes. ?Remove the heat if your skin turns bright red. This is especially important if you are unable to feel pain, heat, or cold. You may have a greater risk of getting burned. If directed, put ice on the painful area. To do this: ?Put ice in a plastic bag. ?Place a towel between your skin and the bag. ?Leave the ice on for 20 minutes, 2 3 times a day. ?Remove the ice if your skin turns bright red. This is very important. If you cannot feel pain, heat, or cold, you have a greater risk of damage to the area. General instructions Your health care provider may recommend that you see a physical therapist. This person can help you come up with a safe exercise program. If told by your health care provider, do physical therapy exercises to improve movement and strength in the affected area. Keep all follow-up visits. This is important. This includes any physical therapy visits. Contact a health care provider if: Your pain gets worse. Medicines do not help ease your pain. You cannot use the part of your body that hurts, such as your arm, leg, or neck. You have trouble sleeping. You have trouble doing your normal activities. Get help right away if: You have a new injury and your pain is worse or different. You feel numb or you have tingling in the painful area. Summary Musculoskeletal pain refers to aches and pains in your bones, joints, muscles, and the tissues that surround them. This pain can occur in any part of the body. Your health care provider may recommend that you see a physical therapist. This person can help you come up with a safe exercise program. Do any exercises as told by your physical therapist. Lower your stress level. Stress can worsen musculoskeletal pain. Ways to lower stress may include meditation, yoga, cognitive or behavioral therapy, acupuncture, and massage therapy. This information is not intended to replace advice given to you by your health care provider. Make sure you discuss any questions you have with your health care provider. Document Revised: 08/23/2020 Document Reviewed: 08/01/2020 [employer] Patient Education 2022 [employer] 08/27/2023 19:05:09 Cervicogenic Headache Cervicogenic Headache In a cervicogenic [...] includes your primary health care provider, a painting and coating worker, a neurologist, and a physical therapist. Follow these instructions at home: Take jqwk-zte-cbdruhv and prescription medicines only as told by [...] includes your primary health care provider, a painting and coating worker, a neurologist, and a physical therapist. This information is not intended to replace advice given to you by your health care provider. Make sure you discuss any questions you have with your health care provider. Document Revised: 10/24/2021 Document Reviewed: 10/24/2021 [employer] Patient Education 2022 [employer] 08/27/2023 19:05:07 Form - Headache Record Form - Headache [...] of the headache: Description of the headache: Hours of sleep the night before the headache: Food or drinks before the headache started: Events before the headache started: Symptoms before the headache started: Symptoms during the headache: __ Treatment: Effect of treatment: Other comments: Date: Time (from start to end): Location of the headache: Intensity of the headache: Description of the headache: Hours of sleep the night before the headache: Food or drinks before the headache started: Events before the headache started: Symptoms before the headache started: Symptoms during the headache: Treatment: Effect of treatment: Other comments: Date: Time (from start to end): Location of the headache: Intensity of the headache: Description of the headache: Hours of sleep the night before the headache: Food or drinks before the headache started: Events before the headache started: Symptoms before the headache started: Symptoms during the headache: Treatment: Effect of treatment: Other comments: Date: Time (from start to end): Location of the headache: Intensity of the headache: Description of the headache: Hours of sleep the night before the headache: Food or drinks before the headache started: Events before the headache started: Symptoms before the headache started: Symptoms during the headache: Treatment: Effect of treatment: Other comments: Date: Time (from start to end): Location of the headache: Intensity of the headache: Description of the headache: Hours of sleep the night before the [...] 09/18/2021 [employer] Patient Education 2022 [employer] 08/27/2023 19:05:07 Chronic Migraine Headache Chronic Migraine Headache A [...] Follow these instructions at home: Medicines Take mqrk-orw-xdnkmlc and prescription medicines only as told by [...] for Headache and Migraine Patients ([facility]): headachemigraine.org [place] Migraine Foundation: americanmigrainefoundation.org National Headache Foundation: headaches.org [...] provider. Document Revised: 06/06/2020 Document Reviewed: 06/06/2020 [employer] Patient Education 2022 [employer]. 08/27/2023 19:05:03 BMI for Adults BMI for Adults What is BMI? Body mass index (BMI) is a number that is calculated from a person's weight and height. BMI can help estimate how much of a person's weight is composed of fat. BMI does not measure body fat directly. Rather, it is an alternative to procedures that directly measure body fat, which can be difficult and expensive. BMI can help identify people who may be at higher risk for certain medical problems. What are BMI measurements used for? BMI is used as a screening tool to identify possible weight problems. It helps determine whether a person is obese, overweight, a healthy weight, or underweight. BMI is useful for: Identifying a weight problem that may be related to a medical condition or may increase the risk for medical problems. Promoting changes, such as changes in diet and exercise, to help reach a healthy weight. BMI screening can be repeated to see if these changes are working. How is BMI calculated? BMI involves measuring your weight in relation to your height. Both height and weight are measured, and the BMI is calculated from those numbers. This can be done either in [place] or metric measurements. Note that charts and online BMI calculators are available to help you find your BMI quickly and easily without having to do these calculations yourself. To calculate your BMI in [place] measurements: 1.Measure your weight in pounds (lb). 2.Multiply the number of pounds by 703. For example, for a person who weighs 180 lb, multiply that number by 703, which equals 126,540. 3.Measure your height in inches. Then multiply that number by itself to get a measurement called inches squared. For example, for a person who is 70 inches tall, the inches squared measurement is 70 inches x 70 inches, which equals 4,900 inches squared. 4.Divide the total from step 2 (number of lb x 703) by the total from step 3 (inches squared): 126,540 4,900 = 25.8. This is your BMI. To calculate your BMI in metric measurements: 1.Measure your weight in kilograms (kg). 2.Measure [...] 3.1 = 22.6. This is your BMI. What do the results mean? BMI charts are used to identify whether you are underweight, normal weight, overweight, or obese. The following guidelines will be used: Underweight: BMI less than 18.5. Normal weight: BMI between 18.5 and 24.9. Overweight: BMI between 25 and 29.9. Obese: BMI of 30 or above. Keep these notes in mind: Weight includes both fat and muscle, so [...] the same way for men and women. Where to find more information For more information about BMI, including tools to quickly calculate your BMI, go to these websites: Centers for Disease Control and Prevention: www.cdc.gov [place] Heart Association: www.heart.org National Heart, Lung, and Blood [place]: www.nhlbi.nih.gov Summary Body mass index (BMI) is a number that is calculated from a person's weight and height. BMI may help estimate how much of a person's weight is composed of fat. BMI can help identify those who may be at higher risk for certain medical problems. BMI can be measured using [place] measurements or metric measurements. BMI charts are used to identify whether you are underweight, normal weight, overweight, or obese. This information is not intended to replace advice given to you by your health care provider. Make sure you discuss any questions you have with your health care provider. Document Revised: 01/11/2020 Document Reviewed: 11/18/2019 [employer] Patient Education 2022 [employer]. 08/27/2023 19:05:01 Health Maintenance, Female Health Maintenance, Female Adopting [...] in people who have high blood pressure readings or are overweight. Have your blood pressure [...] of menopause. Follow these instructions at home: Alcohol use Do not drink alcohol if: ?Your health care provider tells you not to drink. ?You are , may be , or are planning to become . If you drink alcohol: ?Limit how much you have to: ?0 1 drink a day. ?Know how much alcohol is in your drink. In the [place] one drink equals one 12 oz bottle of beer (355 mL), one 5 oz glass of wine (148 mL), or one 1 oz glass of hard liquor (44 mL). Lifestyle Do not use any products that contain nicotine or tobacco. These products include cigarettes, chewing tobacco, and vaping devices, such as e-cigarettes. If you need help quitting, ask your health care provider. Do not use street drugs. Do not share needles. Ask your health care provider for help if you need support or information about quitting drugs. General instructions Schedule regular health, dental, and [...] with your health care provider. Document Revised: 09/09/2021 Document Reviewed: 09/09/2021 [employer] Patient Education 2022 [employer]. Follow Up Care 08/17/2023 08:42:02 With:Princess Dumont FAM, MED Address: Deborah Schrader, [facility] A [address] [id number]- When:Within 6 Week(s) Comments:weight loss and headaches [facility] Primary [facility] Evaluation + Plan note 02-19-2023 LaboratoryRadiology Note Date & Type Note Facility 02-19-2023 Evaluation + Plan note Future Scheduled TestsU Protein/Creat Ratio 02/19/23HgbA1c 02/19/23Microalbumin Level Urine 02/19/23TSH With T4fr Reflex 02/19/23Vitamin D 25 Hydroxy 02/19/23CBC w/ Auto Diff 02/19/23Comprehensive Metabolic Panel 02/19/23Lipid Panel 02/19/23XR Spine Cervical 4 or 5 Views 02/19/23 [facility] Hospital Discharge instructions 02-19-2023 Note [...] includes your primary health care provider, a painting and coating worker, a neurologist, and a physical therapist. Follow these instructions at home: Take efsl-mdh-zzpufkq and prescription medicines only as told by [...] includes your primary health care provider, a painting and coating worker, a neurologist, and a physical therapist. This information is not intended to replace advice given to you by your health care provider. Make sure you discuss any questions you have with your health care provider. Document Revised: 10/24/2021 Document Reviewed: 10/24/2021 [employer] Patient Education 2022 [employer]. 02/19/2023 08:34:09 Migraine Headache Migraine Headache A [...] Follow these instructions at home: Medicines Take hpmx-smq-dxlxxef and prescription medicines only as told by your health care provider. Ask your health care provider if the medicine prescribed to you: ?Requires you to avoid driving or using heavy machinery. ?Can cause constipation. You may need to take these actions to prevent or treat constipation: ?Drink enough fluid to keep your urine pale yellow. ?Take iuiv-qgd-cogtdde or prescription medicines. ?Eat foods that are [...] provider. Document Revised: 08/12/2019 Document Reviewed: 06/02/2019 [employer] Patient Education 2022 [employer] 02/19/2023 08:34:03 Form - Headache Record Form [...] provider. Document Revised: 09/18/2021 Document Reviewed: 09/18/2021 [employer] Patient Education 2022 [employer] 02/19/2023 01:02:45 General Headache Without Cause [...] help with your condition: Managing pain Take efig-ldn-vnekckw and prescription medicines only as told by [...] provider. Document Revised: 09/18/2021 Document Reviewed: 09/18/2021 [employer] Patient Education 2022 [employer] 02/19/2023 01:02:42 Form - Headache Record Form [...] provider. Document Revised: 09/18/2021 Document Reviewed: 09/18/2021 [employer] Patient Education 2022 [employer]. 02/19/2023 01:02:37 Cervicogenic Headache Cervicogenic Headache In [...] includes your primary health care provider, a painting and coating worker, a neurologist, and a physical therapist. Follow these instructions at home: Take hxlb-aig-zijgzer and prescription medicines only as told by [...] includes your primary health care provider, a painting and coating worker, a neurologist, and a physical therapist. This information is not intended to replace advice given to you by your health care provider. Make sure you discuss any questions you have with your health care provider. Document Revised: 10/24/2021 Document Reviewed: 10/24/2021 [employer] Patient Education 2022 [employer] 02/19/2023 01:02:35 Chronic Migraine Headache Chronic [...] Follow these instructions at home: Medicines Take reli-mnl-vwazzld and prescription medicines only as told by [...] for Headache and Migraine Patients (CHAMP): [email or web address].org [employer] Migraine Foundation: [email or web address].org National Headache Foundation: headaches.org [...] provider. Document Revised: 06/06/2020 Document Reviewed: 06/06/2020 [email or web address] Patient Education 2022 [employer]. Follow Up Care 02/17/2023 08:10:14 With:Princess Dumont FAM, MED Address: [address] [place] [phone] When:Within 1 Month(s) Comments:headaches. neck pain With:Princess Dumont FAM, MED Address: [address] [place] [phone] When:Within 1 Year(s) Comments:annual wellness, anxiety/ depression [facility] Hospital Discharge instructions 07-24-2021 Note [...] height. This can be done either in [place] ([place] or metric measurements. Note that charts are available to help you find your BMI quickly and easily without having to do these calculations yourself. To calculate your BMI in [place] ([place] measurements, your health care provider will: [...] medical problems. BMI can be measured using Beninese measurements or metric measurements. To interpret your [...] 12/30/2004 Document Revised: 04/02/2018 Document Reviewed: 03/03/2018 [employer] Patient Education 2020 [employer]. 07/24/2021 17:16:58 Health Maintenance, Female Health Maintenance, [...] 11/03/2011 Document Revised: 04/13/2019 Document Reviewed: 04/13/2019 [employer] Patient Education 2020 [employer]. Follow Up Care 06/26/2021 18:00:45 With:Leigh Ann Covington CNP Address: When: only if needed [facility] Evaluation + Plan note Note Date & Type Note Facility Evaluation + Plan note Future Appointments Appointment Date:10/03/2021 01:00:00 PM Scheduled Provider:Naya ABDI Location:[facility] Appointment Type:ILENE DAVID [facility] Primary [facility] Evaluation + Plan note LaboratoryRadiology Note Date & Type Note Facility Evaluation + Plan note Future Appointments Appointment Date:03/25/2023 07:00:00 AM Scheduled Provider:Princess Dumont Location:[facility] Appointment Type:FM Open Future Scheduled TestsU Protein/Creat Ratio 02/19/23HgbA1c 02/19/23Microalbumin Level Urine 02/19/23TSH With T4fr Reflex 02/19/23Vitamin D 25 Hydroxy 02/19/23CBC w/ Auto Diff 02/19/23Comprehensive Metabolic Panel 02/19/23Lipid Panel 02/19/23XR Spine Cervical 4 or 5 Views 02/19/23 [facility] Hospital course Narrative Note Date & Type Note Facility Hospital course Narrative No data available for this section [facility] Hospital Discharge instructions Note Date & Type Note Facility Hospital Discharge instructions No data available for this section [facility] Progress note Note Date & Type Note Facility Progress note No data available for this section [facility] Summary Purpose Family History No Family History Records Found No data available for this section No Family History Records Found No data available for this section No data available for this section No Family History Records Found Advance Directives No Advanced Directives Records FoundNo Advanced Directives Records FoundNo Advanced Directives Records Found Additional Source Comments INFORMATION SOURCE (unrecogn ized section and content) DATE CREATED AUTHOR 08/01/2022 [facility] DATE CREATED AUTHOR AUTHOR'S ORGANIZ ATION 03/20/2023 [facility] EPIC DATE CREATED AUTHOR AUTHOR'S ORGANIZ ATION 09/03/2023 Zhao Larsen [facility] Patient Care team informatio n (unrecognized section and content) Personnel Name: Princess Dumont Address: Address: [address] [place] [address], [facility] [place] [address]- Personnel Name: Princess Dumont Address: Address: [address] [place] [address]- Personnel Name: Princess Dumont Address: Address: [address] [place] [address] [place] [address]- FOR RECORDS PERTAINING TO PATIENTS WHO ARE [...] BE BASED ON THE PRIMARY CLINICAL RECORDS. [employer] [facility]. provides no warranty or guarantee of the accuracy or completeness of information in this document.
[2023-09-05 10:46] LABS: Chol HDL Ratio 2.4; Cholesterol 147 mg/dL (<=200); HDL Cholesterol 61 mg/dL (40-60); TSH W/ REFLEX FT4 1.242 uIU/mL (0.358-3.740); Triglycerides 56 mg/dL (<=150); VLDL CHOLESTEROL 11.2 mg/dL
== END 2023-09-05 08:51 | disposition home or self-care (01) ==
LOC: LAB 08:50
DX: R53.83 Other fatigue (principal); Z76.89 Persons encountering health services in other specified circumstances; F41.9 Anxiety disorder, unspecified; R51.9 Headache, unspecified
CPT/HCPCS: 36415; 80061; 82306; 84443

== ENCOUNTER 2024-01-14 09:57 | Outpatient (OUT) | payer OTHER, SELFPAY ==
--- NOTE | 2024-01-14 10:01 | US_ITS ---
The [address] [address] Patient Name: OLENA ROMERO MRN: [id number] date: 1995 Sex: F Assigned Patient Location: Current Patient Location: US Accession/Order Number: [id number] Exam Date: 01/14/2024 10:02 Report Date: 01/14/2024 11:44 At the request of: NON-STAFF PHYSICIAN Procedure: US renal BI Ultrasound kidneys, bilateral, and bladder HISTORY: Family History Of Adult Polycystic Kidney Disease COMPARISON: None. TECHNIQUE: Transabdominal ultrasound imaging of both kidneys and bladder was performed. FINDINGS: Both kidneys demonstrate normal echotexture and echogenicity. The right kidney measures 10.2 x 5.0 x 4.5 cm. There is no hydronephrosis of right kidney. The left kidney measures 10.9 x 4.3 x 4.3 cm. No hydronephrosis of left kidney. No discrete renal stone or renal lesion identified in either kidney. The bladder is significantly distended with bladder volume of 915 cc. No focal bladder abnormality. US/US renal BI IMPRESSION: 1. Normal kidneys. No hydronephrosis, focal renal lesion/cyst, or renal stone by ultrasound. 2. Significant bladder distention with prevoid bladder volume of 915 cc. No focal bladder abnormality. Electronically authenticated by: JENNYFER SALEH Date: 01/14/2024 11:44
--- OUTSIDE RECORDS SUMMARY | 2024-01-14 10:03 | XMS_ITS | CCD ---
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 Transfer Inon 09-02-2023 Transfer In [id number]# 1.00TIFF [facility] Family Medicine Office/Clini c Noteon 08-29-2023 [...] and encouraged her to go see her [employer]. The patient was overweight with an elevated BMI. Her laboratories I ordered were not performed, and she did not do the x-ray that I ordered either. She presents for headaches again. Cervicalgia and persistent headaches. The patient underwent cervical x-ray in 02/20/2023 in [place], the day after her last visit on [...] in 06/2023 or 07/2023 and done at [place]. She is uncertain if cholesterol levels were checked. Her bowel movements and urination are normal. She and her switched clinics where she is the patient for an IVF and are waiting for an appointment within the next 2 months. 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 Ibuprofen every 6 to 8 hours. Tylenol [...] appearing. EN (more content not included)... Normal [facility] Comment on above: Result Comment: Elec tronically Signed By: Princess Dumont\.rabia\Date and Time Signed: 04/27/24 15:46 EDT\.br\Electronically Co-Signed By: Ryan Kapadia\.br\Date and Time Co-Signed: 08/28/23 11:38 EDT Patient [...] numbers. This can be done either in [place]ian ([place] or metric measurements. Note that charts and online BMI calculators are available to help you find your BMI quickly and easily without having to do these calculations yourself. To calculate your BMI in [place]ian ([place] measurements: 1. Measure your weight in [...] for Disease Control and Prevention: www.cdc.gov ? [place] Heart Association: www.heart.org ? National Heart, Lung, and Blood [place]: www.nhlbi.nih.gov Summary ? Body mass index (BMI) is a number that is calculated from a person's weight and height. ? BMI may help estimate how much of a person's weight is composed of fat. BMI can help identify those who may be at higher risk for certain medical problems. ? BMI can be measured using Jordanian measurements or metric measurements. ? BMI charts are used to identify whether you are underweight, normal weight, overweight, or obese. This information is not intended to replace advice given to you by your health care provider. Make sure you discuss any questions you have with your health care provider. Document Revised: 01/11/2020 Document Reviewed: 11/18/2019 [employer]Live[employer]inja Patient Education ? 2022 Elsevier Inc. Endocrinology Carbohydrate Counting for Diabetes Mellitus, [...] contain carbohydra (more content not included)... Normal [facility] Ambulatory Visit Summaryon 1 Ambulatory Visit Summary PEREYRA OLENA R :1995 Visit Date:02/19/2023 Ambulatory Visit Instructions Your Diagnosis Encounter to establish care with new doctor Frequent headaches Fatigue Neck pain Overweight Adult BMI 26.0-26.9 kg/sq m Your Care Team Attending Physician - Princess Dumont Primary Care Physician - Princess Dumont This Is Your Medications List clobetasol topical (clobetasol propionate 0.05% top oint) cyclobenzaprine (cyclobenzaprine 10 mg Tab) ethinyl estradiol-norethindr one (Junel 1.5/30 oral tablet) ibuprofen (ibuprofen 600 mg Tab) letrozole (letrozole 2.5 mg Tab) metformin (MetFORMIN (Eqv-Glucophage XR) 500 mg oral tablet, extended release) Procedures Performed Right Knee Arthroscopy with Medial Meniscal Repair (11/15/2015), right knee anterior cruciate ligament allograft reconstruction with upkn-[id number]-mtpp, debridment medial meniscus tear, patellofemoral chondroplasty-Grade I-II (07/28/2013), Tonsillectomy, tubes in the ears. Discharge Vitals Temperature (Oral) 36.5 ?C Heart Rate (Peripheral) 81 Blood Pressure 110/70 Height 162 cm Height 64 in Weight 68.7 kg Weight 151.14 lb BMI 26.18 What to do next You Need to Schedule the Following Appointments Follow Up with Princess Dumont, TIARA, MED When: In 1 year Comments: annual wellness, anxiety/ depression Where: [address], [address] [facility] [address] [place] [address]- You Need to Complete the Following XR Spine Cervical 4 or 5 Views, 02/19/23, Routine, Order for future visit, Transport Mode: Ambulatory, Reason: Neck Pain, No, Frequent headaches [facility] Family Medicine Office/Clini c Noteon 02-19-2023 Family [...] scan, nothing concussion and whiplash- 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 trying to get , brother- Diet: good, normal Caffeine: no Exercise: cardio- bike Alcohol use: rare Drug use: denies Smoking status: denies Health Maintenance: Routine labs: ordered today- patient had extensive labs with [employer] recentl y- she will sent to office next month Pap (21-64yo): ?- LUIS- no abnormal- self breast exam- not done colonoscopy/cologuar d (45-75yo): not due yet Mammogram (qyr 45-54, q2yrs 55-85): not due yet Specialists: Motor Checker: MORALES Jackson [facility] Dentist: 6 months , Watts Review of Systems PHQ Score Initial Depression [...] scans, A (more content not included)... Normal [facility] Comment on above: Result Comment: Elec tronically Signed By: Dionte MARI, Princess Pickard\.br\Date and Time Signed: 02/19/23 08:41 EDT Patient Educationon 02-20-20 Patient Education Form - Headache Record There [...] ? Sympto (more content not included)... [facility] DHEA SERUMon 07-31-2022 Dehydroepiandrosterone (DHEA) 429 ng/dL Normal 31-701 [facility] Comment on above: Performed By: #### D HEA. #### [facility] [address] [address] [address] Meghna Alas ANTI-MULLERIAN HORMONEon Anti-Mullerian Hormone (AMH) 2.01 ng/mL Normal [facility] Comment on above: Result Comment: For assays employing antibodies, the possibility exists for interference by heterophile antibodies in the samples.1 1.Ramon Pickard. Interferences in Immunoassays - still a threat. Clin. Chem. 2000; 46: 5155-4304. This test was developed and its performance characteristics determined by [employer]. It has not been cleared or approved by the Food and Drug Administration. Reference Range: Females 20 - 25y: 1.23 - 11.51 Median 4.70 AMH concentrations of >= 1.06 ng/mL is correlated with a better response to ovarian stimulation, produced more retrievable oocytes and higher odds of live according to Gleicher et al. Fertility and Sterility. 2010: 94:1641-5024. The current AMH test method correlates with [...] an AMH-secreting ovarian tumor. Performed By: #### A JOSE #### [facility] [address] [address] [address] Meghna Alas PAP ACOG PANEL 2: 21 to 29on 07-29-2022 . . Normal [facility] Comment on above: Performed By: #### [id number] ####[facility] [address] [address]Dr. Meghna Alas Age Gdln ACOG Testing 21-29 Normal [facility] Comment on above: Performed By: #### [id number] ####[facility] [address] [place], [place] [address]DrBetito Alas DIAGNOSIS: Comment [facility] [place] Comment on above: Result Comment: NEGA TIVE FOR INTRAEPITHELIAL LESION OR MALIGNANCY. Performed By: #### 4 [id number] ####[facility] [address] [place], [place] [address]DrBetito Alas Methodology: Comment [facility] [place] Comment on above: Result Comment: This liquid based ThinPrep(R) pap test was screened with the use of an image guided system. Performed By: #### [id number] ####[facility] [address] [place], [place] [address]Dr. Meghna Alas Note: Comment [facility] [place] Comment on above: Result Comment: The Pap smear is a screening test designed to aid in the detection of premalignant and malignant conditions of the uterine cervix. It is not a diagnostic procedure and should not be used as the sole means of detecting cervical cancer. Both false-positive and false-negative reports do occur. . Performed By: #### 4 [id number] ####[facility] [address] [place], [place] [address]Dr. Meghna Alas Performed by: Comment Normal [facility] Comment on above: Result Comment: Antonella Villarreal, Supervisory [employer] Feller (ASCP) Performed By: #### [id number] ####[facility] [address] [place], [place] [address]DrBetito Alas Reflex Criteria: Comment [facility] Comment on above: Result Comment: The HPV DNA reflex criteria were not met with this specimen result therefore, no HPV testing was performed. . Performed By: #### [id number] ####[facility] [address] [place], [place] [address]Dr. Meghna Alas Specimen adequacy: Comment Normal [facility] Comment on above: Result Comment: Sati sfactory for evaluation. Endocervical and/or squamous metaplastic cells (endocervical component) are present. Performed By: #### 4 [id number] ####[facility] [address] [place], [place] [address]SoDr. Meghna Alas DHEA-SULFATEon 07-27-2022 DHEA-Sulfate 195.0 ug/dL Normal 110.0-431.7 [facility] Comment on above: Performed By: #### D HEASUL #### [facility] [address] [place], [place] [address] Dr. Meghna Alas FSHon 07-27-2022 FSH 11.4 mIU/mL Normal [facility] Comment on above: Result Comment: Adul t Female: Follicular phase 3.5 - 12.5 Ovulation phase 4.7 - 21.5 Luteal phase 1.7 - 7.7 Postmenopausal 25.8 - 134.8 Performed By: #### L BCFS #### [facility] [address] [place], [place] [address] Dr. Meghna Alas LUTEINIZING HORMONE (LH)on 0 07-27-2022 LH 61.8 mIU/mL Normal [facility] Comment on above: Result Comment: Adul t Female: Follicular phase 2.4 - 12.6 Ovulation phase 14.0 - 95.6 Luteal phase 1.0 - 11.4 Postmenopausal 7.7 - 58.5 Performed By: #### L BCL #### [facility] [address] [place], [place] [address] Dr. Meghna Alas US PELVIS AND TRANSVAGon [...] by: RACQUEL UNLU Date: 2022-07-27 08:10 Normal [facility] CBC AUTO DIFFon 07-26-2022 BASO # 0.1 103/ul Normal 0.0-0.1 [facility] Comment on above: Performed By: #### C BC #### [facility] [address] [place] [address] Dr. Meghna Alas Basophils/100 WBC (Bld) 0.8 % Normal 0.2-2.0 [facility] Comment on above: Performed By: #### C BC #### [facility] [address] [place] [address] Dr. Meghna Alas EO # 0.2 103/ul Normal 0.0-0.7 [facility] Comment on above: Performed By: #### C BC #### [facility] [address] [place] [address] Dr. Meghna Alas Eosinophils/100 WBC (Bld) 3.7 % Normal 0.9-7.0 [facility] Comment on above: Performed By: #### C BC #### [facility] [address] [place] [address] Dr. Meghna Alas Erythrocyte distribution width (RBC) [Ratio] 11.7 % Normal 11.0-15.0 [facility] Comment on above: Performed By: #### C BC #### [facility] [address] [place] [address] Dr. Meghna Alas Hematocrit (Bld) [Volume fraction] 43.6 % Normal 36.0-48.0 [facility] Comment on above: Performed By: #### C BC #### [facility] [address] [place] [address] Dr. Meghna Alas Hemoglobin (Bld) [Mass/Vol] 14.9 g/dL Normal 12.0-16.0 [facility] Comment on above: Performed By: #### C BC #### [facility] [address] [place] [address] Dr. Meghna Alas IG # 0.02 10e3/ul Normal 0.00-0.03 [facility] Comment on above: Performed By: #### C BC #### [facility] [address] [place] [address] Dr. Meghna Alas IG % 0.3 % Normal 0.0-0.5 [facility] Comment on above: Performed By: #### C BC #### [facility] [address] [place] [address] Dr. Meghna Alas LYMPH # 1.7 103/ul Normal 1.2-3.8 [facility] Comment on above: Performed By: #### C BC #### [facility] [address] [place] [address] Dr. Meghna Alas Lymphocytes/100 WBC (Bld) 27.7 % Normal 20.5-60.0 [facility] Comment on above: Performed By: #### C BC #### [facility] [address] [place] [address] Dr. Meghna Alas MANUAL DIFF REQ NO Normal [facility] Comment on above: Performed By: #### C BC #### [facility] [address] [place] [address] Dr. Meghna Alas MCH (RBC) [Entitic mass] 30.7 pg Normal 26.7-34.0 [facility] Comment on above: Performed By: #### C BC #### [facility] [address] [place] [address] Dr. Meghna Alas MCHC (RBC) [Mass/Vol] 34.2 g/dL Normal 29.9-35.2 [facility] Comment on above: Performed By: #### C BC #### [facility] [address] [place] [address] Dr. Meghna Alas MCV (RBC) [Entitic vol] 89.7 fL Normal 81.0-99.0 [facility] Comment on above: Performed By: #### C BC #### [facility] [address] [place] [address] Dr. Meghna Alas MONO # 0.4 103/ul Normal 0.3-0.8 [facility] Comment on above: Performed By: #### C BC #### [facility] [address] [place] [address] Dr. Meghna Alas Monocytes/100 WBC (Bld) 7.1 % Normal 1.7-12.0 [facility] Comment on above: Performed By: #### C BC #### [facility] [address] [place] [address] Dr. Meghna Alas NEUT # 3.7 103/ul Normal 1.4-6.5 [facility] Comment on above: Performed By: #### C BC #### [facility] [address] [place] [address] Dr. Meghna Alas Neutrophils/100 WBC (Bld) 60.4 % Normal 43.0-75.0 [facility] Comment on above: Performed By: #### C BC #### [facility] [address] [place] [address] Dr. Meghna Alas Platelet mean volume (Bld) [Entitic vol] 11.3 fL Normal 9.5-13.5 [facility] Comment on above: Performed By: #### C BC #### [facility] [address] [place] [address] Dr. Meghna Alas PLT 154 103/ul Normal 150-450 [facility] Comment on above: Performed By: #### C BC #### [facility] [address] [place] [address] Dr. Meghna Alas RBC 4.86 106/ul Normal 4.20-5.40 [facility] Comment on above: Performed By: #### C BC #### [facility] [address] [place] [address] Dr. Meghna Alas WBC 6.2 103/ul Normal 4.0-11.0 [facility] Comment on above: Performed By: #### C BC #### [facility] [address] [place] [address] Dr. Meghna Alas FREE T4on 07-26-2022 Free T4 [Mass/Vol] 1.04 ng/dL Normal 0.76-1.46 [facility] Comment on above: Performed By: #### F T4 #### [facility] [address] [place] [address] Dr. Meghna Alas GLYCOHEMOGLOBIN A1Con 2022 ADA RECOMMENDATION SEE BELOW Normal [facility] Comment on above: Result Comment: ADA RECOMMENDED LIMIT 4.0 - 6.0 ADA THERAPEUTIC TARGET < 7.0 ACTION SUGGESTED > 7.0 Performed By: #### A 1C #### [facility] [address] [place] [address] Dr. Meghna Alas Glucose [Mass/Vol] 82 mg/dL Normal [facility] Comment on above: Performed By: #### A 1C #### [facility] [address] [place] [address] Dr. Meghna Alas HbA1c (Bld) [Mass fraction] 4.5 % Normal 4.5-6.2 [facility] Comment on above: Performed By: #### A 1C #### [facility] [address] [place] [address] Dr. Meghna Alas TSHon 07-26-2022 TSH 1.522 uIU/mL Normal 0.358-3.740 [facility] Comment on above: Performed By: #### T SH #### [facility] [address] [place] [address] Dr. Meghna Alas Vital Signs Date Time Vital Sign Value Performing Clinician Isaias morris 10-02-2023 11:14-0400 Blood Pressure Location Princess Rapp [facility] 10-02-2023 11:14-0400 Body temperature 98.24 [degF] Princess Rapp [facility] 10-02-2023 11:14-0400 Diastolic blood pressure 66 mm[Hg] Princess Rapp [facility] 10-02-2023 11:14-0400 Heart rate 65 /min Princess Rapp [facility] 10-02-2023 11:14-0400 SaO2% (BldA) [Mass fraction] 98 % Princess Rapp [facility] 10-02-2023 11:14-0400 Systolic blood pressure 118 mm[Hg] Princess Rapp [facility] 08-27-2023 17:44-0400 Blood Pressure Location Princess Rapp [facility] 08-27-2023 17:44-0400 Body temperature 98.06 [degF] Princess Rapp [facility] 08-27-2023 17:44-0400 Diastolic blood pressure 76 mm[Hg] Princess Rapp [facility] 08-27-2023 17:44-0400 Heart rate 85 /min Princess Rapp [facility] 08-27-2023 17:44-0400 Respiratory rate 14 /min Princess Rapp [facility] 08-27-2023 17:44-0400 SaO2% (BldA) [Mass fraction] 99 % Princess Rapp [facility] 08-27-2023 17:44-0400 Systolic blood pressure 110 mm[Hg] Princess Rapp [facility] 02-19-2023 07:41-0400 Body temperature 97.7 [degF] Princess Rapp [facility] 02-19-2023 07:41-0400 Diastolic blood pressure 70 mm[Hg] Princess Rapp [facility] 02-19-2023 07:41-0400 Heart rate 81 /min Princess Rapp [facility] 02-19-2023 07:41-0400 SaO2% (BldA) [Mass fraction] 99 % Princesssourav Rapp [facility] 02-19-2023 07:41-0400 Systolic blood pressure 110 mm[Hg] Princess Rapp [facility] 07-24-2021 16:57-0400 Blood Pressure Location Leigh Ann Covington [facility] 07-24-2021 16:57-0400 Body temperature 97.7 [degF] Leigh Ann Covington [facility] 07-24-2021 16:57-0400 Diastolic blood pressure 68 mm[Hg] Leigh Ann Covington [facility] 07-24-2021 16:57-0400 Heart rate 88 /min Leigh Ann Covington [facility] 07-24-2021 16:57-0400 SaO2% (BldA) [Mass fraction] 99 % Leigh Ann Covington [facility] 07-24-2021 16:57-0400 Systolic blood pressure 122 mm[Hg] Leigh Ann Covington [facility] Encounters Encounter Date Encounter Type Care Provider Facility Start: 12-28-2023 End[facility]: 12-25-2023 End: 12-25-2023 ambulatory AFUA Darren GIRALDO [facility] Start: 2023 End: 2023 ambulatory [facility] Start: 2023 End: 2023 ambulatory [facility] Start: 2023 End: 2023 Encounter for blood typing [facility] Start: 11-02-2023 End: 11-02-2023 ambulatory SANJEEV SANTIZOMARIA LUISA Not Available Start: 10-02-2023 End: 10-02-2023 ambulatory Princess Rapp Facility:[facility] Start: 10-02-2023 End: 10-02-2023 Patient encounter procedure Princess Rapp [facility] Start: 08-27-2023 End: 08-27-2023 ambulatory Princess Rapp Facility:[facility] Start: 08-27-2023 End: 08-27-2023 Patient encounter procedure Princess Rapp [facility] Start: 03-25-2023 End: 03-25-2023 ambulatory Princess Rapp Facility:[facility] Start: 03-25-2023 End: 03-25-2023 Patient encounter procedure Princess Rapp [facility] Start: 03-18-2023 End: 03-18-2023 ambulatory RULA SMITH Not Available Start: 02-19-2023 End: 02-19-2023 ambulatory Princess Rapp Facility:[facility] Start: 02-19-2023 End: 02-19-2023 Patient encounter procedure Princess Rapp [facility] Start: 07-26-2022 End: 07-27-[address] RULA SMITH . Facility:[facility] Start: 07-23-2022 End: 07-23-[address] RULA SMITH . Facility:[facility] Start: 07-24-2021 End: 07-24-2021 Patient encounter procedure Leigh Ann Covington [facility] Procedures Date Procedure Procedure Detail Performing Clinician Start: 11-15-2015 Right Knee Arthrosco py with Medial Meniscal Repair Leigh Ann Covington Start: 07-28-2013 right knee anterior cruciate ligament allograft reconstruction with fahy-bvtewh-ttna, debridment medial meniscus tear, patellofemoral chondroplasty-Grade I-II Leigh Ann Covington Tonsillectomy Leigh Ann Covingtno tubes in the ears Leigh Ann bartholomew Plan of Treatment Date Care Activity Detail Author Start: 10-21-2023 ambulatory Ambulatory Facility:[facility] Immunizations Immunization Date Immunization Notes Care Provider [facility] 12-20-2009 meningococcal ACWY vaccine, unspecified formulation Princess Rapp [facility] 12-20-2009 tetanus toxoid, reduced diphtheria toxoid, and acellular pertussis vaccine, adsorbed Princess Rapp [facility] 12-20-2009 varicella virus vaccine Princess Rapp [facility] NEGATED: Highlighted row has not occurred!06-26-2021 influenza virus vaccine, unspecified formulation Leigh Ann Covington [facility] NEGATED: Highlighted row has not occurred!06-26-2021 SARS-CoV-2 (COVID-19) Ad26 vaccine, recombinant Leigh Ann Covington [facility] NEGATED: Highlighted row has not occurred!01-29-2021 influenza virus vaccine, unspecified formulation Leigh Ann GetSnippy [facility] NEGATED: Highlighted row has not occurred!01-29-2021 SARS-CoV-2 (COVID-19) Ad26 vaccine, recombinant Leigh Ann GetSnippy [facility] NEGATED: Highlighted row has not occurred!05-03-2019 influenza virus vaccine, live, attenuated, for intranasal use Leigh Ann GetSnippy [facility] NEGATED: Highlighted row has not occurred!09-30-2018 influenza virus vaccine, unspecified formulation Leigh Ann GetSnippy [facility] Payers Date Payer Category Payer Unknown [id number] 1995 Unknown [id number] 2.16.84 [id number] 1995 Unknown [id number] 2.16.84 [id number] 1995 Unknown [id number] 2.16.8 [id number] 1995 Unknown [id number] 2.16.8 [id number] 1995 Unknown [id number] 2.16.8 [id number] 1997 Unknown [id number] 2.16.8 [id number] 1997 Unknown [id number] 2.16.8 [id number] 1997 Unknown [id number] 2.16.84 [id number] 1997 Unknown [id number] 2.16.840 [id number] 1997 Unknown [id number] 2.16.8 [id number] 1997 Unknown [id number] 2.16.8 [id number] 1997 Unknown [id number] 2.16.8 [id number] 1997 Unknown [id number] 2.16.8 [id number] 1959 Unknown [id number] 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 Date Type Detail Facility Start: 07-24-2021 End: 10-02-2023 Tobacco smoking status Never smoked tobacco (finding) [facility] Tobacco smoking status Never [facility] Sex Assigned At Female [facility] Functional Status Date Assessment Result Facility 10-02-2023 Functional Status N/A [facility] 08-27-2023 Functional Status N/A [facility] 02-19-2023 Functional Status N/A [facility] Clinical Notes 07-24-2021 to 10-02-2023 LaboratoryRadiologyLaboratoryRadiologyLaboratoryRadiology Note Date & Type Note Facility 10-02-2023 Hospital Discharg e instructions Patient Education 10/02/2023 12:54:19 Obesity, Adult Obesity, Adult Obesity is the condition of having too much total body fat. Being overweight or obese means that your weight is greater than what is considered healthy for your body size. Obesity is determined by a measurement called BMI (body mass index). BMI is an estimate of body fat and is calculated from height and weight. For adults, a BMI of 30 or higher is considered obese. Obesity can lead to other health concerns and major illnesses, including: Stroke. Coronary artery disease (CAD). Type 2 diabetes. Some types of cancer, including cancers of the colon, breast, uterus, and gallbladder. High blood pressure (hypertension). High cholesterol. Gallbladder stones. Obesity can also contribute to: Osteoarthritis. Sleep apnea. Infertility problems. What are the causes? Common causes of this condition include: Eating daily meals that are high in calories, sugar, and fat. Drinking high amounts of sugar-sweetened beverages, such as soft drinks. Being born with genes that may make you more likely to become obese. Having a medical condition that causes obesity, including: ?Hypothyroidism. ?Polycystic ovarian syndrome (PCOS). ?Binge-eating disorder. ?Barb syndrome. Taking certain medicines, such as steroids, antidepressants, and seizure medicines. Not being physically active (sedentary lifestyle). Not getting enough sleep. What increases the risk? The following factors may make you more likely to develop this condition: Having a family history of obesity. Living in an area with limited access to: ?[place], recreation centers, or sidewalks. ?Healthy food choices, such as grocery stores and [employer] markets. What are the signs or symptoms? The main sign of this condition is having too much body fat. How is this diagnosed? This condition is diagnosed based on: Your BMI. If you are an adult with a BMI of 30 or higher, you are considered obese. Your waist circumference. This measures the distance around your waistline. Your skinfold thickness. Your health care provider may gently pinch a fold of your skin and measure it. You may have other tests to check for underlying conditions. How is this treated? Treatment for this condition often includes changing your lifestyle. Treatment may include some or all of the following: Dietary changes. This may include developing a healthy meal plan. Regular physical activity. This may include activity that causes your heart to beat faster (aerobic exercise) and strength training. Work with your health care provider to design an exercise program that works for you. Medicine to help you lose weight if you are unable to lose one pound a week after six weeks of healthy eating and more physical activity. Treating conditions that cause the obesity (underlying conditions). Surgery. Surgical options may include gastric banding and gastric bypass. Surgery may be done if: ?Other treatments have not helped to improve your condition. ?You have a BMI of 40 or higher. ?You have life-threatening health problems related to obesity. Follow these instructions at home: Eating and drinking Follow recommendations from your health care provider about what you eat and drink. Your health care provider may advise you to: ?Limit fast food, sweets, and processed snack foods. ?Choose low-fat options, such as low-fat milk instead of whole milk. ?Eat five or more servings of fruits or vegetables every day. ?Choose healthy foods when you eat out. ?Keep low-fat snacks available. ?Limit sugary drinks, such as soda, fruit juice, sweetened iced tea, and flavored milk. Drink enough water to keep your urine pale yellow. Do not follow a fad diet. Fad diets can be unhealthy and even dangerous. Other healthful choices include: ?Eat at home more often. This gives you more control over what you eat. ?Learn to read food labels. This will help you understand how much food is considered one serving. ?Learn what a healthy serving size is. Physical activity Exercise regularly, as told by your health care provider. ?Most adults should get up to 150 minutes of moderate-intensity exercise every week. ?Ask your health care provider what types of exercise are safe for you and how often you should exercise. Warm up and stretch before being active. Cool down and stretch after being active. Rest between periods of activity. Lifestyle Work with your health care provider and a dietitian to set a weight-loss goal that is healthy and reasonable for you. Limit your screen time. Find ways to reward yourself that do not involve food. Do not drink alcohol if: ?Your health care provider tells you not to drink. ?You are , may be , or are planning to become . If you drink alcohol: ?Limit how much you have to: ?0 1 drink a day for women. ?0 2 drinks a day for men. ?Know how much alcohol is in your drink. In the [place] one drink equals one 12 oz bottle of beer (355 mL), one 5 oz glass of wine (148 mL), or one 1 oz glass of hard liquor (44 mL). General instructions Keep a weight-loss journal to keep track of the food you eat and how much exercise you get. Take pawg-vbl-oerylhy and prescription medicines only as told by your health care provider. Take vitamins and supplements only as told by your health care provider. Consider joining a support group. Your health care provider may be able to recommend a support group. Pay attention to your mental health as obesity can lead to depression or self esteem issues. Keep all follow-up visits. This is important. Contact a health care provider if: You are unable to meet your weight-loss goal after six weeks of dietary and lifestyle changes. You have trouble breathing. Summary Obesity is the condition of having too much total body fat. Being overweight or obese means that your weight is greater than what is considered healthy for your body size. Work with your health care provider and a dietitian to set a weight-loss goal that is healthy and reasonable for you. Exercise regularly, as told by your health care provider. Ask your health care provider what types of exercise are safe for you and how often you should exercise. This information is not intended to replace advice given to you by your health care provider. Make sure you discuss any questions you have with your health care provider. Document Revised: 11/26/2021 Document Reviewed: 11/26/2021 [employer] [facility] Patient Education 2022 [employer] 10/02/2023 12:54:15 BMI for Adults BMI for Adults What [...] numbers. This can be done either in [place] ([place] or metric measurements. Note that charts and online BMI calculators are available to help you find your BMI quickly and easily without having to do these calculations yourself. To calculate your BMI in [place] ([place] measurements: 1.Measure your weight in pounds [...] Centers for Disease Control and Prevention: www.cdc.gov [place] Heart Association: www.heart.org National Heart, Lung, and Blood [place]: www.nhlbi.nih.gov Summary Body mass index (BMI) is a number that is calculated from a person's weight and height. BMI may help estimate how much of a person's weight is composed of fat. BMI can help identify those who may be at higher risk for certain medical problems. BMI can be measured using [place]ian measurements or metric measurements. BMI charts are used to identify whether you are underweight, normal weight, overweight, or obese. This information is not intended to replace advice given to you by your health care provider. Make sure you discuss any questions you have with your health care provider. Document Revised: 01/11/2020 Document Reviewed: 11/18/2019 [facility] [facility] Patient Education 2022 [facility]. 10/02/2023 12:54:13 Migraine Headache Migraine Headache A migraine headache [...] Follow these instructions at home: Medicines Take btll-keo-plsiaiy and prescription medicines only as told by your health care provider. Ask your health care provider if the medicine prescribed to you: ?Requires you to avoid driving or using heavy machinery. ?Can cause constipation. You may need to take these actions to prevent or treat constipation: ?Drink enough fluid to keep your urine pale yellow. ?Take honu-der-lsbvgal or prescription medicines. ?Eat foods that are [...] provider. Document Revised: 08/12/2019 Document Reviewed: 06/02/2019 [facility] [facility] Patient Education 2022 [facility]. 10/02/2023 12:54:11 Form - Headache Record Form - Headache [...] provider. Document Revised: 09/18/2021 Document Reviewed: 09/18/2021 [facility] [facility] Patient Education 2022 [employer] 10/02/2023 12:54:08 Eczema Eczema Eczema refers to a group of skin conditions that cause skin to become rough and inflamed. Each type of eczema has different triggers, symptoms, and treatments. Eczema of any type is usually itchy. Symptoms range from mild to severe. Eczema is not spread from person to person (is not contagious). It can appear on different parts of the body at different times. One person's eczema may look different from another person's eczema. What are the causes? The exact cause of this condition is not known. However, exposure to certain environmental factors, irritants, and allergens can make the condition worse. What are the signs or symptoms? Symptoms of this condition depend on the type of eczema you have. The types include: Contact dermatitis. There are two kinds: ?Irritant contact dermatitis. This happens when something irritates the skin and causes a rash. ?Allergic contact dermatitis. This happens when your skin comes in contact with something you are allergic to (allergens). This can include poison luzmaria, chemicals, or medicines that were applied to your skin. Atopic dermatitis. This is a long-term (chronic) skin disease that keeps coming back (recurring). It is the most common type of eczema. Usual symptoms are a red rash and itchy, dry, scaly skin. It usually starts showing signs in infancy and can last through adulthood. Dyshidrotic eczema. This is a form of eczema on the hands and feet. It shows up as very itchy, fluid-filled blisters. It can affect people of any age but is more common before age 40. Hand eczema. This causes very itchy areas of skin on the palms and sides of the hands and fingers. This type of eczema is common in industrial jobs where you may be exposed to different types of irritants. Lichen simplex chronicus. This type of eczema occurs when a person constantly scratches one area of the body. Repeated scratching of the area leads to thickened skin (lichenification). This condition can accompany other types of eczema. It is more common in adults but may also be seen in children. Nummular eczema. This is a common type of eczema that most often affects the lower legs and the backs of the hands. It typically causes an itchy, red, circular, crusty lesion (plaque). Scratching may become a habit and can cause bleeding. Nummular eczema occurs most often in middle-aged or older people. Seborrheic dermatitis. This is a common skin disease that mainly affects the scalp. It may also affect other oily areas of the body, such as the face, sides of the nose, eyebrows, ears, eyelids, and chest. It is marked by small scaling and redness of the skin (erythema). This can affect people of all ages. In infants, this condition is called cradle cap. Stasis dermatitis. This is a common skin disease that can cause itching, scaling, and hyperpigmentation, usually on the legs and feet. It occurs most often in people who have a condition that prevents blood from being pumped through the veins in the legs (chronic venous insufficiency). Stasis dermatitis is a chronic condition that needs long-term management. How is this diagnosed? This condition may be diagnosed based on: A physical exam of your skin. Your medical history. Skin patch tests. These tests involve using patches that contain possible allergens and placing them on your back. Your health care provider will check in a few days to see if an allergic reaction occurred. How is this treated? Treatment for eczema is based on the type of eczema you have. You may be given hydrocortisone steroid medicine or antihistamines. These can relieve itching quickly and help reduce inflammation. These may be prescribed or purchased over the counter, depending on the strength that is needed. Follow these instructions at home: Take or apply hxno-hoe-yyfbhzq and prescription medicines only as told by your health care provider. Use creams or ointments to moisturize your skin. Do not use lotions. Learn what triggers or irritates your symptoms so you can avoid these things. Treat symptom flare-ups quickly. Do not scratch your skin. This can make your rash worse. Keep all follow-up visits. This is important. Where to find more information [place] [employer] Dermatology: aad.org National Eczema Association: nationaleczema.org The Society for Pediatric Dermatology: pedsderm.net Contact a health care provider if: You have severe itching, even with treatment. You scratch your skin regularly until it bleeds. Your rash looks different than usual. Your skin is painful, swollen, or more red than usual. You have a fever. Summary Eczema refers to a group of skin conditions that cause skin to become rough and inflamed. Each type has different triggers. Eczema of any type causes itching that may range from mild to severe. Treatment varies based on the type of eczema you have. Hydrocortisone steroid medicine or antihistamines can help with itching and inflammation. Protecting your skin is the best way to prevent eczema. Use creams or ointments to moisturize your skin. Avoid triggers and irritants. Treat flare-ups quickly. This information is not intended to replace advice given to you by your health care provider. Make sure you discuss any questions you have with your health care provider. Document Revised: 01/28/2021 Document Reviewed: 01/28/2021 [facility] [facility] Patient Education 2022 [facility]. 10/02/2023 12:54:06 BMI for Adults BMI for Adults What [...] numbers. This can be done either in [place] ([place] or metric measurements. Note that charts and online BMI calculators are available to help you find your BMI quickly and easily without having to do these calculations yourself. To calculate your BMI in [place] ([place] measurements: 1.Measure your weight in pounds [...] Centers for Disease Control and Prevention: www.cdc.gov [place] Heart Association: www.heart.org National Heart, Lung, and Blood [place]: www.nhlbi.nih.gov Summary Body mass index (BMI) is a number that is calculated from a person's weight and height. BMI may help estimate how much of a person's weight is composed of fat. BMI can help identify those who may be at higher risk for certain medical problems. BMI can be measured using [place]ian measurements or metric measurements. BMI charts are used to identify whether you are underweight, normal weight, overweight, or obese. This information is not intended to replace advice given to you by your health care provider. Make sure you discuss any questions you have with your health care provider. Document Revised: 01/11/2020 Document Reviewed: 11/18/2019 [employer] [facility] Patient Education 2022 [facility]. Follow Up Care 09/22/2023 13:18:17 With:Princess Dumont FAM, [facility] Address: [facility] [place] [id number] Business (1) When:07/08/2023 Comments:for f/u [facility] 08-27-2023 Hospital Discharg e instructions Patient Education [...] 1.Identify the foods that contain carbohydrates: Rice. [place]. Milk. Strawberries. 2.Calculate how many servings you [...] and snacks. Where to find more information [place] Diabetes Association: diabetes.org Centers for Disease Control [...] provider. Document Revised: 11/21/2020 Document Reviewed: 11/21/2020 [facility] [facility] Patient Education 2022 [facility]. 08/27/2023 19:11:56 Calorie Counting for Weight Loss [...] provider. Document Revised: 05/31/2020 Document Reviewed: 05/31/2020 [facility] [facility] Patient Education 2022 [facility]. 08/27/2023 19:11:54 Exercising to Lose Weight Exercising [...] your health care provider or diet and sports nutritionist (dietitian). This may include: ?Eating fewer calories. [...] provider. Document Revised: 06/16/2021 Document Reviewed: 06/16/2021 [facility] [facility] Patient Education 2022 [facility]. 08/27/2023 19:11:53 BMI for Adults BMI for [...] numbers. This can be done either in [place] ([place] or metric measurements. Note that charts and online BMI calculators are available to help you find your BMI quickly and easily without having to do these calculations yourself. To calculate your BMI in [place] ([place] measurements: 1.Measure your weight in pounds [...] Centers for Disease Control and Prevention: www.cdc.gov [place] Heart Association: www.heart.org National Heart, Lung, and Blood [place]: www.nhlbi.nih.gov Summary Body mass index (BMI) is a number that is calculated from a person's weight and height. BMI may help estimate how much of a person's weight is composed of fat. BMI can help identify those who may be at higher risk for certain medical problems. BMI can be measured using [place]ian measurements or metric measurements. BMI charts are used to identify whether you are underweight, normal weight, overweight, or obese. This information is not intended to replace advice given to you by your health care provider. Make sure you discuss any questions you have with your health care provider. Document Revised: 01/11/2020 Document Reviewed: 11/18/2019 [facility] [facility] Patient Education 2022 [facility]. 08/27/2023 19:11:48 Musculoskeletal Pain Musculoskeletal Pain Musculoskeletal [...] mouth or applied to the skin. Take cfcn-ifa-vnxevea and prescription medicines only as told by [...] provider. Document Revised: 08/23/2020 Document Reviewed: 08/01/2020 [facility] [facility] Patient Education 2022 [facility]. 08/27/2023 19:05:09 Cervicogenic Headache Cervicogenic Headache In [...] includes your primary health care provider, a sign painter apprentice, a neurologist, and a physical therapist. Follow these instructions at home: Take tdzb-hpg-ofgrngb and prescription medicines only as told by [...] includes your primary health care provider, a sign painter apprentice, a neurologist, and a physical therapist. This information is not intended to replace advice given to you by your health care provider. Make sure you discuss any questions you have with your health care provider. Document Revised: 10/24/2021 Document Reviewed: 10/24/2021 [facility] [facility] Patient Education 2022 [facility]. 08/27/2023 19:05:07 Form - Headache Record Form [...] provider. Document Revised: 09/18/2021 Document Reviewed: 09/18/2021 [facility] [facility] Patient Education 2022 [facility]. 08/27/2023 19:05:07 Chronic Migraine Headache Chronic Migraine [...] Follow these instructions at home: Medicines Take mmys-zax-kwjgzqc and prescription medicines only as told by [...] for Headache and Migraine Patients (CHAMP): headachemigraine.org [place] Migraine Foundation: americanmigrainefoundation.org National Headache Foundation: headaches.org [...] provider. Document Revised: 06/06/2020 Document Reviewed: 06/06/2020 [facility] [facility] Patient Education 2022 [employer] 08/27/2023 19:05:03 BMI for Adults BMI for [...] numbers. This can be done either in [place] ([place] or metric measurements. Note that charts and online BMI calculators are available to help you find your BMI quickly and easily without having to do these calculations yourself. To calculate your BMI in [place] ([place] measurements: 1.Measure your weight in pounds [...] Centers for Disease Control and Prevention: www.cdc.gov [place] Heart Association: www.heart.org National Heart, Lung, and Blood [place]: www.nhlbi.nih.gov Summary Body mass index (BMI) is a number that is calculated from a person's weight and height. BMI may help estimate how much of a person's weight is composed of fat. BMI can help identify those who may be at higher risk for certain medical problems. BMI can be measured using [place]ian measurements or metric measurements. BMI charts are used to identify whether you are underweight, normal weight, overweight, or obese. This information is not intended to replace advice given to you by your health care provider. Make sure you discuss any questions you have with your health care provider. Document Revised: 01/11/2020 Document Reviewed: 11/18/2019 [facility] [facility] Patient Education 2022 [facility]. 08/27/2023 19:05:01 Health Maintenance, Female Health Maintenance, [...] provider. Document Revised: 09/09/2021 Document Reviewed: 09/09/2021 [facility] [facility] Patient Education 2022 [facility]. Follow Up Care 08/17/2023 08:42:02 With:Princess Dumont FAM, [facility] Address: [address] [place] [address] [place] [address]- When:Within 6 Week(s) Comments:weight loss and headaches [facility] 02-19-2023 Evaluation + Plan note Future Scheduled TestsU Protein/Creat Ratio 02/19/23HgbA1c 02/19/23Microalbumin Level Urine 02/19/23TSH With T4fr Reflex 02/19/23Vitamin D 25 Hydroxy 02/19/23CBC w/ Auto Diff 02/19/23Comprehensive Metabolic Panel 02/19/23Lipid Panel 02/19/23XR Spine Cervical 4 or 5 Views 02/19/23 [facility] 02-19-2023 Hospital Discharg e instructions Patient Education [...] includes your primary health care provider, a sign painter apprentice, a neurologist, and a physical therapist. Follow these instructions at home: Take vdmh-eiy-unklqti and prescription medicines only as told by [...] includes your primary health care provider, a sign painter apprentice, a neurologist, and a physical therapist. This information is not intended to replace advice given to you by your health care provider. Make sure you discuss any questions you have with your health care provider. Document Revised: 10/24/2021 Document Reviewed: 10/24/2021 [employer] [facility] Patient Education 2022 [facility]. 02/19/2023 08:34:09 Migraine Headache Migraine Headache A [...] Follow these instructions at home: Medicines Take hpyv-hzu-efzcrwa and prescription medicines only as told by your health care provider. Ask your health care provider if the medicine prescribed to you: ?Requires you to avoid driving or using heavy machinery. ?Can cause constipation. You may need to take these actions to prevent or treat constipation: ?Drink enough fluid to keep your urine pale yellow. ?Take vpnn-hao-ltshfnw or prescription medicines. ?Eat foods that are [...] provider. Document Revised: 08/12/2019 Document Reviewed: 06/02/2019 [facility] [facility] Patient Education 2022 [employer] 02/19/2023 08:34:03 Form - Headache Record [...] provider. Document Revised: 09/18/2021 Document Reviewed: 09/18/2021 [employer] Patient Education 2022 [facility]. 02/19/2023 01:02:45 General Headache Without Cause General [...] help with your condition: Managing pain Take tcfl-nus-levcyvv and prescription medicines only as told by [...] [employer] Patient Education 2022 [employer] 02/19/2023 01:02:42 Form - Headache Record [...] provider. Document Revised: 09/18/2021 Document Reviewed: 09/18/2021 [employer] Patient Education 2022 [employer] 02/19/2023 01:02:37 Cervicogenic Headache Cervicogenic Headache [...] includes your primary health care provider, a sign painter apprentice, a neurologist, and a physical therapist. Follow these instructions at home: Take cvao-nvl-hyfpoyh and prescription medicines only as told by [...] includes your primary health care provider, a sign painter apprentice, a neurologist, and a physical therapist. This information is not intended to replace advice given to you by your health care provider. Make sure you discuss any questions you have with your health care provider. Document Revised: 10/24/2021 Document Reviewed: 10/24/2021 [employer] Patient Education 2022 [facility]. 02/19/2023 01:02:35 Chronic Migraine Headache Chronic Migraine [...] Follow these instructions at home: Medicines Take emby-ndy-oydfjkc and prescription medicines only as told by [...] for Headache and Migraine Patients (CHAMP): headachemigraine.org [place] [employer]: americanmigrainefoundation.org National Headache Foundation: headaches.org [...] provider. Document Revised: 06/06/2020 Document Reviewed: 06/06/2020 [employer] Patient Education 2022 [facility]. Follow Up Care 02/17/2023 08:10:14 With:Princess Dumont FAM, MED Address: [address], [facility] [employer] [address] [place] [id number]- When:Within 1 Month(s) Comments:headaches. neck pain With:Princess Dumont FAM, MED Address: [address], [facility] [address] [address]- When:Within 1 Year(s) Comments:annual wellness, anxiety/ depression [facility] Primary Care 07-24-2021 [facility] Discharg e instructions Patient Education 07/24/2021 17:17:00 [...] height. This can be done either in [place] ([place] or metric measurements. Note that charts are available to help you find your BMI quickly and easily without having to do these calculations yourself. To calculate your BMI in [place] ([place] measurements, your health care provider will: [...] medical problems. BMI can be measured using Jordanian measurements or metric measurements. To interpret your [...] 12/30/2004 Document Revised: 04/02/2018 Document Reviewed: 03/03/2018 [employer] Patient Education 2020 [facility]. 07/24/2021 17:16:58 Health Maintenance, Female Health Maintenance, [...] 11/03/2011 Document Revised: 04/13/2019 Document Reviewed: 04/13/2019 [employer] Patient Education 2020 [facility]. Follow Up Care 06/26/2021 18:00:45 With:Leigh Ann Covington CNP Address: When: only if needed [facility] Primary Care Evaluation + Plan note Future Appointments Appointment Date:10/03/2021 01:00:00 PM Scheduled Provider:Naya ABDI Location:[facility] Appointment Type:ILENE DAVID [facility] Primary Care Evaluation + Plan note Future Appointments Appointment Date:03/25/2023 07:00:00 AM Scheduled Provider:Princess Dumont Location:[facility] Appointment Type: Open Future Scheduled TestsU Protein/Creat Ratio 02/19/23HgbA1c 02/19/23Microalbumin Level Urine 02/19/23TSH With T4fr Reflex 02/19/23Vitamin D 25 Hydroxy 02/19/23CBC w/ Auto Diff 02/19/23Comprehensive Metabolic Panel 02/19/23Lipid Panel 02/19/23XR Spine Cervical 4 or 5 Views 02/19/23 [facility] Primary Care Evaluation + Plan note Future Appointments Appointment Date:10/21/2023 07:20:00 AM Scheduled Provider:Princess Dumont Location:[facility] Appointment Type: Open Future Scheduled TestsTSH With T4fr Reflex 02/19/23Vitamin D 25 Hydroxy 02/19/23CBC w/ Auto Diff 02/19/23Comprehensive Metabolic Panel 02/19/23Lipid Panel 02/19/23XR Spine Cervical 4 or 5 Views 02/19/23 [facility] Primary [facility] Hospital course Narrative No data available for this section [facility] Primary [facility] Hospital Discharge instructions No data available for this section [facility] Primary Care Progress note No data available for this section [facility] Primary Care Summary Purpose Family History No Family History Records Found No data available for this section No data available for this section No data available for this section No data available for this section No Family History Records FoundNo Family History Records FoundNo Family History Records Found Advance Directives No Advanced Directives Records FoundNo Advanced Directives Records FoundNo Advanced Directives Records FoundNo Advanced Directives Records Found Additional Source Comments INFORMATION SOURCE (unrecogn ized section and content) DATE CREATED AUTHOR 08/01/2022 [facility] DATE CREATED AUTHOR AUTHOR'S ORGANIZ ATION 10/03/2023 [facility] DATE CREATED AUTHOR AUTHOR'S ORGANIZ ATION 11/03/[address] [facility] dical [facility] DATE CREATED AUTHOR AUTHOR'S ORGANIZ ATION 01/14/2024 [facility] Patient Care team informatio n (unrecognized section and content) Personnel Name: Princess Dumont Address: Address: [address] [place] [address]- Personnel Name: Princess Dumont Address: Address: [address] [place] [address]- Personnel Name: Princess Dumont Address: Address: [address] [place] [address]- Personnel Name: Princess Dumont Address: Address: [address] [place] [address]- FOR RECORDS PERTAINING TO PATIENTS WHO ARE [...] BE BASED ON THE PRIMARY CLINICAL RECORDS. [facility] [employer] [facility]. provides no warranty or guarantee of the accuracy or completeness of information in this document.
== END 2024-01-14 09:58 | disposition home or self-care (01) ==
DX: Z01.419 Encounter for gynecological examination (general) (routine) without abnormal findings (principal); Z82.71 Family history of polycystic kidney; N32.89 Other specified disorders of bladder
CPT/HCPCS: 76775; 88175

== ENCOUNTER 2024-01-14 20:41 | Outpatient (REF) | payer OTHER, SELFPAY ==
--- OUTSIDE RECORDS SUMMARY | 2024-01-14 20:44 | XMS_ITS | CCD ---
Author Organization [facility] Care Team Providers Care Lead Caster Helper Name Role Phone AMANJEANMARIE Rachana Abdi Primary Care Physician LUIS ., DR HORTA Attending Unavailable LUIS ., DR HORTA Admitting Unavailable LUIS ., DR HORTA Consulting Unavailable LUIS ., DR HORTA Admitting Unavailable LUIS ., DR HORTA Consulting Unavailable LUIS ., DR HORTA Attending Unavailable RACQUEL MOTLEY Consulting Unavailable Princess Rapp Primary Care Physician [phone] Princess Rapp Attending Unavailable Princess Rapp Attending Unavailable Princess Rapp Attending Unavailable Princess Rapp Attending Unavailable Princess Rapp Attending Unavailable RULA SMITH Attending Unavailable SANJEEV SAVAGE Attending Unavailable VIVIAN THORPE Attending Unavailable AFUA GIRALDO I Attending Unavailable JAD MATUTE Attending Unavailable Allergies Allergy Classification Reported Allergen(s) Allergy Type Date of Onset Reaction(s) Facility (6 sources) Azithromycin; Translations: [azithromycin] Drug Allergy Unknown (qualifier value) [facility] Work Phone: (7 sources) Latex; Translations: [Latex] Drug allergy 2023 Itching [facility] Work Phone: (7 sources) nickel; Translations: [Nickel] Drug Allergy 2023 Itching [facility] Work Phone: Medications Current Medications Medication Drug Class(es) Dates Sig (Normalized) Sig (Original) clobetasol propionate 0.0005 mg/mg topical ointment (5 sources) Corticosteroid Start: 10-02-2023 clobetasol propionate 0.05% top oint 1 bonifacio, Topical, BID, 60 gm, Refill(s) 1, Apply a thin film to affected area. Do not use to face, armpits, groin., [facility]/pharmacy #[id number], 162, cm, 10/02/23 11:23:00 EDT, Height/Length Dosing, 76.7, kg, 10/02/23 11:23:00 EDT, Weight Dosing Start Date: 10/02/23 Status: Ordered Start: 02-10-2022 clobetasol pro pionate 0.05% top oint 1 bonifacio, Topical, BID, 45 gram, Refill(s) 0, Apply a thin film to affected area. Do not use to face, armpits, groin., [facility], 160, cm, 07/24/21 17:02:00 EDT, Height/Length Dosing, 71.6, kg, 07/24/21 17:02:00 EDT, Weight Dosing Start Date: 02/10/22 Status: Ordered Start: 01-29-2021 clobetasol pro pionate 0.05% top oint 1 bonifacio, Topical, BID, 45 gram, Refill(s) 1, [facility], 160, cm, 01/29/21 16:48:00 [...] spasm, # 30 tab(s), Refills(s) 1, Pharmacy: [facility]/pharmacy #[id number], 162, cm, 02/19/23 7:51:00 EDT, Height/Length Dosing, 68.7, kg, 02/19/23 7:51:00 EDT, Weight Dosing Start Date: 02/19/23 Status: Ordered ethinyl estradiol 0.03 mg / norethindrone acetate 1.5 mg oral tablet (2 sources) Estrogen Start: 09-27-2020 take 1 tablet by mouth once daily .09/30 oral tablet 1 tab(s), Oral, Daily, 84 tab(s), Refill(s) 6, Therapeutic tx; september refill early, [facility], 160, cm, 09/27/20 16:16:00 [...] Refill(s) 6, Therapeutic tx; september refill early, [facility], 160, cm, 09/27/20 16:16:00 [...] hour of each main meal containing fat, [facility], 160, cm, 07/24/21 17:02:00 [...] Daily, # 90 tab(s), Refills(s) 3, Pharmacy: [facility]/pharmacy #[id number], 162, cm, 10/02/23 11:23:00 EDT, Height/Length Dosing, 76.7, kg, 10/02/23 11:23:00 EDT, Weight Dosing Start Date: 10/02/23 Status: Ordered Start: 08-27-2023 take 2 tablets by [facility] once daily Topamax 25 mg Tab 50 mg = 2 tab(s), Oral, Daily, # 180 tab(s), Refills(s) 0, Pharmacy: [facility]/pharmacy #[id number], 162, cm, 08/27/23 17:49:00 EDT, [...] 4-7, # 90 tab(s), Refills(s) 1, Pharmacy: [facility]/pharmacy #[id number], 162, cm, 02/19/23 7:51:00 EDT, [...] 2023 ABO group Nom (Bld) O Normal [facility] Comment on above: Performed By: #### 3 4532-2 #### JOSEPH ESQUIVEL ([id number]) [facility] ([facility]) [address] Blood group antibody screen Ql Negative [facility] Comment on above: Performed By: #### 3 4532-2 #### JOSEPH ESQUIVEL ([id number]) [facility] ([facility]) [address] [place] [address] US D Ag Ql (Bld) Positive [facility] Comment on above: Performed By: #### 3 4532-2 #### JOSEPH ESQUIVEL ([id number]) [facility] [address] [place] [address] US C. trachomatis and N. gonorr hoeae DNA EDELMIRA+probe Nom (Unsp spec)on 2023 C. trachomatis rRNA EDELMIRA+probe Ql (Unsp spec) Negative Normal Negative [facility] Comment on above: Order Comment: The A [...] By: #### 3 6903-3 #### SHAI Pickard ([id number]) [facility] ([facility]) [address] [place], [place] [id number] N. gonorrhoeae DNA Probe+sig amp Ql (Unsp spec) Negative Normal Negative [facility] Comment on above: Order Comment: The A [...] By: #### 3 6903-3 #### SHAI Pickard ([id number]) [facility] ([facility]) [address] [place], [place] [id number] HIV 1+2 Ab+HIV1 p24 Agon HIV 1+2 Ab+HIV1 p24 Ag IA Ql Non-Reactive Normal Nonreactive [facility] Comment on above: Order Comment: HIV A g/Ab screen is performed using the Siem[employer] HIV Ag/Ab Combo assay which detects the presence of HIV p24 antigen as well as antibodies to HIV-1 (Group M and O) and HIV-2. No laboratory evidence of HIV infection. If acute HIV infection is suspected, consider testing for HIV RNA by PCR (viral load). Performed By: #### 5 6888-1 #### SHAI Pickard ([id number]) [facility] ([facility]) [address] [place], [place] [address] Hepatitis B virus surface Ag on 2023 HBV surface Ag IA Ql Non-Reactive Normal Nonreactive [facility] Comment on above: Result Comment: Biot in interference may cause falsely decreased results. Patients taking a Biotin dose of up to 5 mg/day should refrain from taking Biotin for 24 hours before sample collection. Providers may contact their local laboratory for further information. Performed By: #### 5 196-1 #### SHAI Pickard ([id number]) [facility] ([facility]) [address] [place] [address] Hepatitis C virus Abon 12-10 HCV Ab Ql (S) Non-Reactive Normal Nonreactive [facility] Comment on above: Result Comment: Resu lts from patients taking biotin supplements or receiving high-dose biotin therapy should be interpreted with caution due to possible interference with this test. Providers may contact their local laboratory for further information. Performed By: #### 1 6128-1 #### SHAI Pickard ([id number]) [facility] ([facility]) [address] [place] [address] Rubella virus IgG IA Qnon Rubella virus IgG IA Ql Positive Normal Negative [facility] Comment on above: Order Comment: NEGAT [...] By: #### 5 334-8 #### SHAI Pickard ([id number]) [facility] ([facility]) [address] [place], [place] [address] Rubella virus IgG Qn (S) 1.2 IA Normal <=0.7 IA [facility] Comment on above: Order Comment: NEGAT DEZ: [...] By: #### 5 334-8 #### SHAI Pickard ([id number]) [facility] ([facility]) [address] [place] [address] Treponema pallidum Ab.IgG+Ig Mon 2023 T. pallidum IgG+IgM IA Ql (S) Non-Reactive Normal Nonreactive [facility] Comment on above: Result Comment: No s ignificant level of Treponema pallidum antibody detected. Repeat testing in 2 to 4 weeks may be considered if early infection or incubating syphilis infection is suspected. Performed By: #### 4 7236-5 #### SHAI Pickard ([id number]) [facility] ([facility]) [address] [place], [place] [phone] VZV IgG IA Ql (S)on 12-11-19 24 VARICELLA ZOSTER IGG INDEX 5.6 IA High <=0.8 [facility] Comment on above: Order Comment: NEGAT DEZ: [...] By: #### 1 5410-4 #### SHAI Pickard ([id number]) [facility] ([facility]) [address] [place] [address]9 Varicella zoster virus Ab.Ig [facility] 2023 VZV IgG IA Ql (S) Positive Abnormal Negative [facility] Comment on above: Order Comment: NEGAT DEZ: [...] By: #### 1 5410-4 #### SHAI Pickard ([id number]) [facility] ([facility]) [address] [place] [address] Ambulatory Visit Summaryon 0 10-02-2023 Ambulatory Visit [...] knee anterior cruciate ligament allograft reconstruction with juue-jqjdur-fawb, debridment medial meniscus tear, patellofemoral chondroplasty-Grade I-II (07/28/2013), Tonsillectomy, tubes in the ears. Discharge Vitals Temperature (Oral) 36.8 ?C Heart Rate (Peripheral) 65 Blood Pressure 118/66 Height 162 cm Height 64 in Weight 76.7 kg Weight 168.74 lb BMI 29.23 What to do next Scheduled Follow-Up Appointments Thursday 7:20 AM EDT With: Princess Dumont Where: [facility] Normal [facility] Family Medicine Office/Clini c Noteon 10-02-2023 Family [...] lot of blood work ordered by her HEARING STENOGRAPHER and we are going to go over [...] mg once day. She has been taking ikqw-ybr-bmanthx magnesium at night since initiating Topamax. Weight management. The patient expresses a desire to lose weight and re-initiate her Adipex. She has previously tried Aryan skry-pny-jtqwjgo but found it ineffective. She does not [...] arms or hands, as well as any rotor coil taper strength weakness. She is agreeable trying vitamin [...] with me in (more content not included)... [facility] Comment on above: Result Comment: Elec tronically Signed By: Princess Dumont\.br\Date and Time Signed: 10/02/23 16:44 EDT\.br\Electronically Co-Signed By: Raj Chu\.br\Date and Time Co-Signed: 10/02/23 15:48 EDT Lab Reportson 10-02-2023 Lab Reports [id number] #1.00TIFF [facility] Patient Educationon 10-02-19 Patient Education BMI for [...] numbers. This can be done either in [place] ([place] or metric measurements. Note that charts and online BMI calculators are available to help you find your BMI quickly and easily without having to do these calculations yourself. To calculate your BMI in [place] ([place] measurements: 1. Measure your weight in [...] for Disease Control and Prevention: www.cdc.gov ? [place] Heart Association: www.heart.org ? National Heart, Lung, and Blood [place]: www.nhlbi.nih.gov Summary ? Body mass index (BMI) is a number that is calculated from a person's weight and height. ? BMI may help estimate how much of a person's weight is composed of fat. BMI can help identify those who may be at higher risk for certain medical problems. ? BMI can be measured using [place] measurements or metric measurements. ? BMI charts are used to identify whether you are underweight, normal weight, overweight, or obese. This information is not intended to replace advice given to you by your health care provider. Make sure you discuss any questions you have with your health care provider. Document Revised: 01/11/2020 Document Reviewed: 11/18/2019 Elsevier Patient Education ? 2022 [place]. Dermatology Eczema Eczema refers to a group [...] symptoms? S (more content not included)... Normal [facility] RAD - MISCon 09-02-2023 RAD - MISC [id number] #1.00TIFF [facility] Transfer Inon 09-02-2023 Transfer In [id number]# 1.00TIFF [facility] Family Medicine Office/Clini c Noteon 08-29-2023 Family [...] and encouraged her to go see her HEARING STENOGRAPHER. The patient was overweight with an elevated BMI. Her laboratories I ordered were not performed, and she did not do the x-ray that I ordered either. She presents for headaches again. Cervicalgia and persistent headaches. The patient underwent cervical x-ray in 02/20/2023 in [place], the day after her last visit on [...] in 06/2023 or 07/2023 and done at [place]. She is uncertain if cholesterol levels were checked. Her bowel movements and urination are normal. She and her switched clinics where she is the patient for an IVF and are waiting for an appointment within the next 2 months. She has a . She works [employer]. Ibuprofen every 6 to 8 hours. Tylenol [...] appearing. EN (more content not included)... Normal [facility] Comment on above: Result Comment: Elec [...] numbers. This can be done either in [place] ([place] or metric measurements. Note that charts and online BMI calculators are available to help you find your BMI quickly and easily without having to do these calculations yourself. To calculate your BMI in [place] ([place] measurements: 1. Measure your weight in [...] for Disease Control and Prevention: www.cdc.gov ? [place] Heart Association: www.heart.org ? National Heart, Lung, and Blood [place]: www.nhlbi.nih.gov Summary ? Body mass index (BMI) is a number that is calculated from a person's weight and height. ? BMI may help estimate how much of a person's weight is composed of fat. BMI can help identify those who may be at higher risk for certain medical problems. ? BMI can be measured using [place] measurements or metric measurements. ? BMI charts are used to identify whether you are underweight, normal weight, overweight, or obese. This information is not intended to replace advice given to you by your health care provider. Make sure you discuss any questions you have with your health care provider. Document Revised: 01/11/2020 Document Reviewed: 11/18/2019 [employer] Patient Education ? 2022 [employer]vier Inc. Endocrinology [...] contain carbohydra (more content not included)... Normal [facility] Ambulatory Visit Summaryon 1 Ambulatory Visit [...] knee anterior cruciate ligament allograft reconstruction with eyoq-jkrbmc-cdzh, debridment medial meniscus tear, patellofemoral chondroplasty-Grade I-II [...] depression Where: [address], [address] [facility] [address] [place] [address]- You Need to Complete the Following XR Spine Cervical 4 or 5 Views, 02/19/23, Routine, Order for future visit, Transport Mode: Ambulatory, Reason: Neck Pain, No, Frequent headaches Normal [facility] Medicine Office/Clini c Noteon 02-19-2023 [...] scan, nothing concussion and whiplash- 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 gets neck [...] mom and brother 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: Occupation: [employer]- [employer] Family life: , 1 year, 2 dogs. trying to get , brother- Diet: good, normal Caffeine: no Exercise: cardio- bike Alcohol use: rare Drug use: denies Smoking status: denies Health Maintenance: Routine labs: ordered today- patient had extensive labs with HEARING STENOGRAPHER recentl y- she will sent to office next month Pap (21-64yo): ?- LUIS- no abnormal- self breast exam- not done colonoscopy/cologuar d (45-75yo): not due yet Mammogram (qyr 45-54, q2yrs 55-85): not due yet Specialists: Forming Roll Operator: MORALES Jackson [facility] Dentist: 6 months [...] scans, A (more content not included)... Normal [facility] Comment on above: Result Comment: Elec [...] ? Sympto (more content not included)... Normal [facility] DHEA SERUMon 07-31-2022 Dehydroepiandrosterone (DHEA) 429 ng/dL Normal 31-701 [facility] Comment on above: Performed By: #### D HEA. #### [facility] [address] [address] [address] Meghna Alas ANTI-MULLERIAN HORMONEon Anti-Mullerian Hormone (AMH) 2.01 ng/mL Normal [facility] Comment on above: Result Comment: For assays employing antibodies, the possibility exists for interference by heterophile antibodies in the samples.1 1.Ramon Pickard. Interferences in Immunoassays - still a threat. Clin. Chem. 2000; 46: 4348-4987. This test was developed and its performance characteristics determined by [employer]. It has not been cleared or approved by the Food and Drug Administration. Reference Range: Females 20 - 25y: 1.23 - 11.51 Median 4.70 AMH concentrations of >= 1.06 ng/mL is correlated with a better response to ovarian stimulation, produced more retrievable oocytes and higher odds of live according to Gleicher et al. Fertility and Sterility. 2010: 94:0085-6610. The current AMH test method correlates with [...] Performed By: #### A JOSE #### [facility] [address] [address] [address] Meghna Alas PAP ACOG PANEL 2: 21 to 29on 07-29-2022 . . Normal [facility] Comment on above: Performed By: #### 4 [id number] ####[facility] [address] [address]Dr. Meghna Alas Age Gdln ACOG Testing 21-29 Normal [facility] Comment on above: Performed By: #### 4 [id number] ####[facility] [address] [place], [place] [address]DrBetito Alas DIAGNOSIS: Comment [facility] Comment on above: Result Comment: NEGA TIVE FOR INTRAEPITHELIAL LESION OR MALIGNANCY. Performed By: #### 4 [id number] ####[facility] [address] [place], [place] [address]DrBetito Alas Methodology: Comment [facility] Comment on above: Result Comment: This liquid based ThinPrep(R) pap test was screened with the use of an image guided system. Performed By: #### 4 [id number] ####[facility] [address] [place], [place] [address]Dr. Meghna Alas Note: Comment [facility] Comment on above: Result Comment: The Pap smear is a screening test designed to aid in the detection of premalignant and malignant conditions of the uterine cervix. It is not a diagnostic procedure and should not be used as the sole means of detecting cervical cancer. Both false-positive and false-negative reports do occur. . Performed By: #### 4 [id number] ####[facility] [address] [place], [place] [address]Dr. Meghna Alas Performed by: Comment Normal [facility] Comment on above: Result Comment: Antonella Villarreal, Supervisory Ethanol Maintenance Mechanic (ASCP) Performed By: #### 4 [id number] ####[facility] [address] [place], [place] [address]DrBetito Alas Reflex Criteria: Comment [facility] Comment on above: Result Comment: The HPV DNA reflex criteria were not met with this specimen result therefore, no HPV testing was performed. . Performed By: #### 4 [id number] ####[facility] [address] [place], [place] [address]Dr. Meghna Alas Specimen adequacy: Comment Normal [facility] Comment on above: Result Comment: Sati sfactory for evaluation. Endocervical and/or squamous metaplastic cells (endocervical component) are present. Performed By: #### 4 [id number] ####[facility] [address] [place], [place] [address]XdDr. Meghna Alas DHEA-SULFATEon 07-27-2022 DHEA-Sulfate 195.0 ug/dL Normal 110.0-431.7 [facility] Comment on above: Performed By: #### D HEASUL #### [facility] [address] [place], [place] [address] Dr. Meghna Alas FSHon 07-27-2022 FSH 11.4 mIU/mL Normal [facility] Comment on above: Result Comment: Adul t Female: Follicular phase 3.5 - 12.5 Ovulation phase 4.7 - 21.5 Luteal phase 1.7 - 7.7 Postmenopausal 25.8 - 134.8 Performed By: #### L BCFS #### [facility] [address] [place], [place] [address] Dr. Meghna Alas LUTEINIZING HORMONE (LH)on 0 07-27-2022 LH 61.8 mIU/mL Normal [facility] Comment on above: Result Comment: Adul t Female: Follicular phase 2.4 - 12.6 Ovulation phase 14.0 - 95.6 Luteal phase 1.0 - 11.4 Postmenopausal 7.7 - 58.5 Performed By: #### L BCL #### [facility] [address] [place], [place] [address] Dr. Meghna Alas US PELVIS AND TRANSVAGon [...] by: RACQUEL UNLU Date: 2022-07-27 08:10 Normal [facility] CBC AUTO DIFFon 07-26-2022 BASO # 0.1 103/ul Normal 0.0-0.1 [facility] Comment on above: Performed By: #### C BC #### [facility] [address] [place] [address] Dr. Meghna Alas Basophils/100 WBC (Bld) 0.8 % Normal 0.2-2.0 [facility] Comment on above: Performed By: #### C BC #### [facility] [address] [place] [address] Dr. Meghna Alas EO # 0.2 103/ul Normal 0.0-0.7 [facility] Comment on above: Performed By: #### C BC #### [facility] [address] [place] [address] Dr. Meghna Alas Eosinophils/100 WBC (Bld) 3.7 % Normal 0.9-7.0 [facility] Comment on above: Performed By: #### C BC #### [facility] [address] [place] [address] Dr. Meghna Alas Erythrocyte distribution width (RBC) [Ratio] 11.7 % Normal 11.0-15.0 [facility] Comment on above: Performed By: #### C BC #### [facility] [address] [place] [address] Dr. Meghna Alas Hematocrit (Bld) [Volume fraction] 43.6 % Normal 36.0-48.0 [facility] Comment on above: Performed By: #### C BC #### [facility] [address] [place] [address] Dr. Meghna Alas Hemoglobin (Bld) [Mass/Vol] 14.9 g/dL Normal 12.0-16.0 [facility] Comment on above: Performed By: #### C BC #### [facility] [address] [place] [address] Dr. Meghna Alas IG # 0.02 10e3/ul Normal 0.00-0.03 [facility] Comment on above: Performed By: #### C BC #### [facility] [address] [place] [address] Dr. Meghna Alas IG % 0.3 % Normal 0.0-0.5 [facility] Comment on above: Performed By: #### C BC #### [facility] [address] [place] [address] Dr. Meghna Alas LYMPH # 1.7 103/ul Normal 1.2-3.8 [facility] Comment on above: Performed By: #### C BC #### [facility] [address] [place] [address] Dr. Meghna Alas Lymphocytes/100 WBC (Bld) 27.7 % Normal 20.5-60.0 [facility] Comment on above: Performed By: #### C BC #### [facility] [address] [place] [address] Dr. Meghna Alas MANUAL DIFF REQ NO Normal [facility] Comment on above: Performed By: #### C BC #### [facility] [address] [place] [address] Dr. Meghna Alas MCH (RBC) [Entitic mass] 30.7 pg Normal 26.7-34.0 [facility] Comment on above: Performed By: #### C BC #### [facility] [address] [place] [address] Dr. Meghna Alas MCHC (RBC) [Mass/Vol] 34.2 g/dL Normal 29.9-35.2 [facility] Comment on above: Performed By: #### C BC #### [facility] [address] [place] [address] Dr. Meghna Alas MCV (RBC) [Entitic vol] 89.7 fL Normal 81.0-99.0 [facility] Comment on above: Performed By: #### C BC #### [facility] [address] [place] [address] Dr. Meghna Alas MONO # 0.4 103/ul Normal 0.3-0.8 [facility] Comment on above: Performed By: #### C BC #### [facility] [address] [place] [address] Dr. Meghna Alas Monocytes/100 WBC (Bld) 7.1 % Normal 1.7-12.0 [facility] Comment on above: Performed By: #### C BC #### [facility] [address] [place] [address] Dr. Meghna Alas NEUT # 3.7 103/ul Normal 1.4-6.5 [facility] Comment on above: Performed By: #### C BC #### [facility] [address] [place] [address] Dr. Meghna Alas Neutrophils/100 WBC (Bld) 60.4 % Normal 43.0-75.0 [facility] Comment on above: Performed By: #### C BC #### [facility] [address] [place] [address] Dr. Meghna Alas Platelet mean volume (Bld) [Entitic vol] 11.3 fL Normal 9.5-13.5 [facility] Comment on above: Performed By: #### C BC #### [facility] [address] [place] [address] Dr. Meghna Alas PLT 154 103/ul Normal 150-450 [facility] Comment on above: Performed By: #### C BC #### [facility] [address] [place] [address] Dr. Meghna Alas RBC 4.86 106/ul Normal 4.20-5.40 [facility] Comment on above: Performed By: #### C BC #### [facility] [address] [place] [address] Dr. Meghna Alas WBC 6.2 103/ul Normal 4.0-11.0 [facility] Comment on above: Performed By: #### C BC #### [facility] [address] [place] [address] Dr. Meghna Alas FREE T4on 07-26-2022 Free T4 [Mass/Vol] 1.04 ng/dL Normal 0.76-1.46 [facility] Comment on above: Performed By: #### F T4 #### [facility] [address] [place] [address] Dr. Meghna Alas GLYCOHEMOGLOBIN A1Con 2022 ADA RECOMMENDATION SEE BELOW Normal [facility] Comment on above: Result Comment: ADA RECOMMENDED LIMIT 4.0 - 6.0 ADA THERAPEUTIC TARGET < 7.0 ACTION SUGGESTED > 7.0 Performed By: #### A 1C #### [facility] [address] [place] [address] Dr. Meghna Alas Glucose [Mass/Vol] 82 mg/dL Normal [facility] Comment on above: Performed By: #### A 1C #### [facility] [address] [place] [address] Dr. Meghna Alas HbA1c (Bld) [Mass fraction] 4.5 % Normal 4.5-6.2 [facility] Comment on above: Performed By: #### A 1C #### [facility] [address] [place] [address] Dr. Meghna Alas TSHon 07-26-2022 TSH 1.522 uIU/mL Normal 0.358-3.740 [facility] Comment on above: Performed By: #### T SH #### [facility] [address] [place] [address] Dr. Meghna Alas Vital Signs Date Time Vital Sign Value Performing Clinician Isaias morris 10-02-2023 11:14-0400 Blood Pressure Location Princess Rapp [facility] 10-02-2023 11:14-0400 Body temperature 98.24 [degF] Princess Rapp [facility] 10-02-2023 11:14-0400 Diastolic blood pressure 66 mm[Hg] Princess Rapp [facility] 10-02-2023 11:14-0400 Heart rate 65 /min Princess Rapp [facility] 10-02-2023 11:14-0400 SaO2% (BldA) [Mass fraction] 98 % Princess Rapp [facility] 10-02-2023 11:14-0400 Systolic blood pressure 118 mm[Hg] Princess Rapp [facility] 08-27-2023 17:44-0400 Blood Pressure Location Princess Rapp [facility] 08-27-2023 17:44-0400 Body temperature 98.06 [degF] Princess Rapp [facility] 08-27-2023 17:44-0400 Diastolic blood pressure 76 mm[Hg] Princess Rapp [facility] 08-27-2023 17:44-0400 Heart rate 85 /min Princess Rapp [facility] 08-27-2023 17:44-0400 Respiratory rate 14 /min Princess Rapp [facility] 08-27-2023 17:44-0400 SaO2% (BldA) [Mass fraction] 99 % Princess Rapp [facility] 08-27-2023 17:44-0400 Systolic blood pressure 110 mm[Hg] Princess Rapp [facility] 02-19-2023 07:41-0400 Body temperature 97.7 [degF] Princess Rapp [facility] 02-19-2023 07:41-0400 Diastolic blood pressure 70 mm[Hg] Princess Rapp [facility] 02-19-2023 07:41-0400 Heart rate 81 /min Princess Rapp [facility] 02-19-2023 07:41-0400 SaO2% (BldA) [Mass fraction] 99 % Princesssourav Rapp [facility] 02-19-2023 07:41-0400 Systolic blood pressure 110 mm[Hg] Princess Rapp [facility] 07-24-2021 16:57-0400 Blood Pressure Location Leigh Ann Covington [facility] 07-24-2021 16:57-0400 Body temperature 97.7 [degF] Leigh Ann Covington [facility] 07-24-2021 16:57-0400 Diastolic blood pressure 68 mm[Hg] Leigh Ann Covington [facility] 07-24-2021 16:57-0400 Heart rate 88 /min Leigh Ann Covington [facility] 07-24-2021 16:57-0400 SaO2% (BldA) [Mass fraction] 99 % Leigh Ann Covington [facility] 07-24-2021 16:57-0400 Systolic blood pressure 122 mm[Hg] Leigh Ann Covington [facility] Encounters Encounter Date Encounter Type Care Provider Facility Start: 12-28-2023 End: 12-28-2023 [facility]ulatory [facility] Start: 12-25-2023 End: 12-25-2023 ambulatory AFUA Darren GIRALDO [facility] Start: 2023 End: [address] [facility] Start: 2023 End: 2023 ambulatory [facility] Start: 2023 End: 2023 Encounter for blood typing [facility] Start: 11-02-2023 End: 11-02-2023 ambulatory SANJEEV SANTIZOMARIA LUISA Not Available Start: 10-02-2023 End: 10-02-2023 ambulatory Princess Rapp Facility:[facility] Start: 10-02-2023 End: 10-02-2023 Patient encounter procedure Princess Rapp [facility] Start: 08-27-2023 End: 08-27-2023 ambulatory Princess Rapp Facility:[facility] Start: 08-27-2023 End: 08-27-2023 Patient encounter procedure Princess Rapp [facility] Start: 03-25-2023 End: 03-25-2023 ambulatory Princess Rapp Facility:[facility] Start: 03-25-2023 End: 03-25-2023 Patient encounter procedure Princess Rapp [facility] Start: 03-18-2023 End: 03-18-2023 ambulatory RULA SMITH Not Available Start: 02-19-2023 End: 02-19-2023 ambulatory Princess Rapp Facility:[facility] Start: 02-19-2023 End: 02-19-2023 Patient encounter procedure Princess Rapp [facility] Start: 07-26-2022 End: 07-27-[address] RULA SMITH . Facility:[facility] Start: 07-23-2022 End: 07-23-[address] RULA SMITH . Facility:[facility] Start: 07-24-2021 End: 07-24-2021 Patient encounter procedure Leigh Ann Covington [facility] Procedures Date Procedure Procedure Detail Performing Clinician Start: 11-15-2015 Right Knee Arthrosco py with Medial Meniscal Repair Leigh Ann Covington Start: 07-28-2013 right knee anterior cruciate ligament allograft reconstruction with ojjf-tsofeu-mkpi, debridment medial meniscus tear, patellofemoral chondroplasty-Grade I-II Leigh Ann Covington Tonsillectomy Leigh Ann Covington tubes in the ears Leigh Ann bartholomew Plan of Treatment Date Care Activity Detail Author Start: 10-21-2023 ambulatory Ambulatory Facility:[facility] Immunizations Immunization Date Immunization Notes Care Provider [facility] 12-20-2009 meningococcal ACWY vaccine, unspecified formulation Princess Rapp [facility] 12-20-2009 tetanus toxoid, reduced diphtheria toxoid, and acellular pertussis vaccine, adsorbed Princess Rapp [facility] 12-20-2009 varicella virus vaccine Princess Rapp [facility] NEGATED: Highlighted row has not occurred!06-26-2021 influenza virus vaccine, unspecified formulation Leigh Ann Covington [facility] NEGATED: Highlighted row has not occurred!06-26-2021 SARS-CoV-2 (COVID-19) Ad26 vaccine, recombinant Leigh Ann Covington [facility] NEGATED: Highlighted row has not occurred!01-29-2021 influenza virus vaccine, unspecified formulation Leigh Ann [employer] [facility] NEGATED: Highlighted row has not occurred!01-29-2021 SARS-CoV-2 (COVID-19) Ad26 vaccine, recombinant Leigh Ann [employer] [facility] NEGATED: Highlighted row has not occurred!05-03-2019 influenza virus vaccine, live, attenuated, for intranasal use Leigh Ann [employer] [facility] NEGATED: Highlighted row has not occurred!09-30-2018 influenza virus vaccine, unspecified formulation Leigh Ann [employer] [facility] Payers Date Payer Category Payer Unknown [id number] 1997 Unknown [id number] 2.16.84 [id number] 1997 Unknown [id number] 2.16.84 [id number] 1997 Unknown [id number] 2.16.8 [id number] 1997 Unknown [id number] 2.16.8 [id number] 1997 Unknown [id number] 2.16.8 [id number] 1997 Unknown [id number] 2.16.8 [id number] 1997 Unknown [id number] 2.16.8 [id number] 1997 Unknown [id number] 2.16.84 [id number] 1997 Unknown [id number] 2.16.840 [id number] 1997 Unknown [id number] 2.16.8 [id number] 1997 Unknown [id number] 2.16.8 [id number] 1997 Unknown [id number] 2.16.8 [id number] 1997 Unknown [id number] 2.16.8 [id number] 1959 Unknown [id number] 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 Date Type Detail Facility Start: 07-24-2021 End: 10-02-2023 Tobacco smoking status Never smoked tobacco (finding) [facility] Tobacco smoking status Never [facility] Sex Assigned At Female [facility] Functional Status Date Assessment Result Facility 10-02-2023 Functional Status N/A [facility] 08-27-2023 Functional Status N/A [facility] 02-19-2023 Functional Status N/A [facility] Clinical Notes 07-24-2021 to 10-02-2023 [...] food choices, such as grocery stores and [employer] markets. What are the signs or symptoms? [...] and how much exercise you get. Take xdoq-mqz-milqcan and prescription medicines only as told by [...] provider. Document Revised: 11/26/2021 Document Reviewed: 11/26/2021 [employer] Patient Education 2022 [employer] 10/02/2023 12:54:15 BMI for Adults BMI [...] numbers. This can be done either in [place] or metric measurements. Note that charts and online BMI calculators are available to help you find your BMI quickly and easily without having to do these calculations yourself. To calculate your BMI in [place] measurements: 1.Measure your weight in pounds [...] Centers for Disease Control and Prevention: www.cdc.gov [place] Heart Association: www.heart.org National Heart, Lung, and Blood [place]: www.nhlbi.nih.gov Summary Body mass index (BMI) is a number that is calculated from a person's weight and height. BMI may help estimate how much of a person's weight is composed of fat. BMI can help identify those who may be at higher risk for certain medical problems. BMI can be measured using [place] measurements or metric measurements. BMI charts are used to identify whether you are underweight, normal weight, overweight, or obese. This information is not intended to replace advice given to you by your health care provider. Make sure you discuss any questions you have with your health care provider. Document Revised: 01/11/2020 Document Reviewed: 11/18/2019 [employer] Patient Education 2022 [employer]. 10/02/2023 12:54:13 Migraine Headache Migraine Headache A [...] Follow these instructions at home: Medicines Take jipd-xwc-mzapzdu and prescription medicines only as told by your health care provider. Ask your health care provider if the medicine prescribed to you: ?Requires you to avoid driving or using heavy machinery. ?Can cause constipation. You may need to take these actions to prevent or treat constipation: ?Drink enough fluid to keep your urine pale yellow. ?Take qsyz-tmp-osjnguc or prescription medicines. ?Eat foods that are [...] provider. Document Revised: 08/12/2019 Document Reviewed: 06/02/2019 [employer] Patient Education 2022 [employer]. 10/02/2023 12:54:11 Form - Headache Record Form [...] provider. Document Revised: 09/18/2021 Document Reviewed: 09/18/2021 [employer] Patient Education 2022 [employer] 10/02/2023 12:54:08 Eczema Eczema Eczema refers [...] these instructions at home: Take or apply spme-dqk-cweqpch and prescription medicines only as told by your health care provider. Use creams or ointments to moisturize your skin. Do not use lotions. Learn what triggers or irritates your symptoms so you can avoid these things. Treat symptom flare-ups quickly. Do not scratch your skin. This can make your rash worse. Keep all follow-up visits. This is important. Where to find more information [place] [employer]ermatology: aad.org National Eczema Association: [...] provider. Document Revised: 01/28/2021 Document Reviewed: 01/28/2021 [employer] Patient Education 2022 [employer]. 10/02/2023 12:54:06 BMI for Adults BMI for [...] numbers. This can be done either in [place] ([place] or metric measurements. Note that charts and online BMI calculators are available to help you find your BMI quickly and easily without having to do these calculations yourself. To calculate your BMI in [place] measurements: 1.Measure your weight in pounds [...] Centers for Disease Control and Prevention: www.cdc.gov [place] Heart Association: www.heart.org National Heart, Lung, and Blood [place]: www.nhlbi.nih.gov Summary Body mass index (BMI) is a number that is calculated from a person's weight and height. BMI may help estimate how much of a person's weight is composed of fat. BMI can help identify those who may be at higher risk for certain medical problems. BMI can be measured using [place] measurements or metric measurements. BMI charts are used to identify whether you are underweight, normal weight, overweight, or obese. This information is not intended to replace advice given to you by your health care provider. Make sure you discuss any questions you have with your health care provider. Document Revised: 01/11/2020 Document Reviewed: 11/18/2019 [employer] Patient Education 2022 [employer]. Follow Up Care 09/22/2023 13:18:17 With:Princess Dumont FAM, [facility] Address: [facility] [place] [id number] Business (1) When:07/08/2023 Comments:for f/u [facility] 08-27-2023 Hospital Discharg e instructions [...] 1.Identify the foods that contain carbohydrates: Rice. [place]. Milk. Strawberries. 2.Calculate how many servings you [...] and snacks. Where to find more information [place] Diabetes Association: diabetes.org Centers for Disease Control [...] provider. Document Revised: 11/21/2020 Document Reviewed: 11/21/2020 [employer] Patient Education 2022 [employer]. 08/27/2023 19:11:56 Calorie Counting for Weight Loss [...] provider. Document Revised: 05/31/2020 Document Reviewed: 05/31/2020 [employer] Patient Education 2022 [employer]. 08/27/2023 19:11:54 Exercising to Lose Weight Exercising [...] your health care provider or diet and patient centered care specialist (dietitian). This may include: ?Eating fewer [...] provider. Document Revised: 06/16/2021 Document Reviewed: 06/16/2021 [employer] Patient Education 2022 [employer]. 08/27/2023 19:11:53 BMI for Adults BMI for [...] numbers. This can be done either in [place] or metric measurements. Note that charts and online BMI calculators are available to help you find your BMI quickly and easily without having to do these calculations yourself. To calculate your BMI in [place] measurements: 1.Measure your weight in pounds [...] Centers for Disease Control and Prevention: www.cdc.gov [place] Heart Association: www.heart.org National Heart, Lung, and Blood [place]: www.nhlbi.nih.gov Summary Body mass index (BMI) is a number that is calculated from a person's weight and height. BMI may help estimate how much of a person's weight is composed of fat. BMI can help identify those who may be at higher risk for certain medical problems. BMI can be measured using [place] measurements or metric measurements. BMI charts are used to identify whether you are underweight, normal weight, overweight, or obese. This information is not intended to replace advice given to you by your health care provider. Make sure you discuss any questions you have with your health care provider. Document Revised: 01/11/2020 Document Reviewed: 11/18/2019 [employer] Patient Education 2022 [employer]. 08/27/2023 19:11:48 Musculoskeletal Pain Musculoskeletal Pain Musculoskeletal [...] mouth or applied to the skin. Take tzrt-unt-ropgeve and prescription medicines only as told by [...] provider. Document Revised: 08/23/2020 Document Reviewed: 08/01/2020 [employer] Patient Education 2022 [employer]. 08/27/2023 19:05:09 Cervicogenic Headache Cervicogenic Headache In [...] includes your primary health care provider, a painter supervisor, a neurologist, and a physical therapist. Follow these instructions at home: Take sfgy-wvd-vgvumqt and prescription medicines only as told by [...] includes your primary health care provider, a painter supervisor, a neurologist, and a physical therapist. This information is not intended to replace advice given to you by your health care provider. Make sure you discuss any questions you have with your health care provider. Document Revised: 10/24/2021 Document Reviewed: 10/24/2021 [employer] Patient Education 2022 [employer]. 08/27/2023 19:05:07 Form - Headache Record Form [...] provider. Document Revised: 09/18/2021 Document Reviewed: 09/18/2021 [employer] Patient Education 2022 [employer]. 08/27/2023 19:05:07 Chronic Migraine Headache Chronic Migraine [...] Follow these instructions at home: Medicines Take xvje-baa-scbgcfs and prescription medicines only as told by [...] for Headache and Migraine Patients (CHAMP): headachemigraine.org [place] Migraine Foundation: americanmigrainefoundation.org National Headache Foundation: headaches.org [...] provider. Document Revised: 06/06/2020 Document Reviewed: 06/06/2020 [employer] Patient Education 2022 [employer] 08/27/2023 19:05:03 BMI for Adults BMI [...] numbers. This can be done either in [place] ([place] or metric measurements. Note that charts and online BMI calculators are available to help you find your BMI quickly and easily without having to do these calculations yourself. To calculate your BMI in [place] ([place] measurements: 1.Measure your weight in pounds [...] Centers for Disease Control and Prevention: www.cdc.gov [place] Heart Association: www.heart.org National Heart, Lung, and Blood [place]: www.nhlbi.nih.gov Summary Body mass index (BMI) is a number that is calculated from a person's weight and height. BMI may help estimate how much of a person's weight is composed of fat. BMI can help identify those who may be at higher risk for certain medical problems. BMI can be measured using [place] measurements or metric measurements. BMI charts are used to identify whether you are underweight, normal weight, overweight, or obese. This information is not intended to replace advice given to you by your health care provider. Make sure you discuss any questions you have with your health care provider. Document Revised: 01/11/2020 Document Reviewed: 11/18/2019 [employer] Patient Education 2022 [employer]. 08/27/2023 19:05:01 Health Maintenance, Female Health Maintenance, [...] provider. Document Revised: 09/09/2021 Document Reviewed: 09/09/2021 [employer] Patient Education 2022 [employer]. Follow Up Care 08/17/2023 08:42:02 With:Princess Dumont FAM, [facility] Address: [address] [place] [address] [place] [address]- When:Within 6 Week(s) Comments:weight loss and headaches [facility] 02-19-2023 Evaluation + Plan note Future Scheduled TestsU Protein/Creat Ratio 02/19/23HgbA1c 02/19/23Microalbumin Level Urine 02/19/23TSH With T4fr Reflex 02/19/23Vitamin D 25 Hydroxy 02/19/23CBC w/ Auto Diff 02/19/23Comprehensive Metabolic Panel 02/19/23Lipid Panel 02/19/23XR Spine Cervical 4 or 5 Views 02/19/23 [facility] 02-19-2023 Hospital Discharg e instructions [...] includes your primary health care provider, a painter supervisor, a neurologist, and a physical therapist. Follow these instructions at home: Take vnif-ayy-hiaadak and prescription medicines only as told by [...] includes your primary health care provider, a painter supervisor, a neurologist, and a physical therapist. This information is not intended to replace advice given to you by your health care provider. Make sure you discuss any questions you have with your health care provider. Document Revised: 10/24/2021 Document Reviewed: 10/24/2021 [employer] Patient Education 2022 [employer]. 02/19/2023 08:34:09 Migraine Headache Migraine Headache A [...] Follow these instructions at home: Medicines Take rxsb-vta-tejflnv and prescription medicines only as told by your health care provider. Ask your health care provider if the medicine prescribed to you: ?Requires you to avoid driving or using heavy machinery. ?Can cause constipation. You may need to take these actions to prevent or treat constipation: ?Drink enough fluid to keep your urine pale yellow. ?Take pkew-feo-kkgkbhh or prescription medicines. ?Eat foods that are [...] provider. Document Revised: 08/12/2019 Document Reviewed: 06/02/2019 [employer] Patient Education 2022 [employer] 02/19/2023 08:34:03 Form - Headache Record [...] provider. Document Revised: 09/18/2021 Document Reviewed: 09/18/2021 [employer] Patient Education 2022 [employer]. 02/19/2023 01:02:45 General Headache Without Cause General [...] help with your condition: Managing pain Take tryw-avi-jishdue and prescription medicines only as told by [...] provider. Document Revised: 09/18/2021 Document Reviewed: 09/18/2021 [employer] Patient Education 2022 [employer] 02/19/2023 01:02:37 Cervicogenic Headache Cervicogenic Headache [...] includes your primary health care provider, a painter supervisor, a neurologist, and a physical therapist. Follow these instructions at home: Take rbkn-osd-jkfictn and prescription medicines only as told by [...] includes your primary health care provider, a painter supervisor, a neurologist, and a physical therapist. This information is not intended to replace advice given to you by your health care provider. Make sure you discuss any questions you have with your health care provider. Document Revised: 10/24/2021 Document Reviewed: 10/24/2021 [employer] Patient Education 2022 [employer]. 02/19/2023 01:02:35 Chronic Migraine Headache Chronic Migraine [...] Follow these instructions at home: Medicines Take baub-nch-nerrbdb and prescription medicines only as told by [...] for Headache and Migraine Patients (CHAMP): headachemigraine.org [place] Migraine Foundation: americanmigrainefoundation.org National Headache Foundation: headaches.org [...] provider. Document Revised: 06/06/2020 Document Reviewed: 06/06/2020 [employer] Patient Education 2022 [employer]. Follow Up Care 02/17/2023 08:10:14 With:Princess Dumont FAM, MED Address: [address], [facility] [employer] [address] [place] [address]- When:Within 1 Month(s) Comments:headaches. neck pain With:Princess Dumont FAM, MED Address: [address], [facility] [address] [address]- When:Within 1 Year(s) Comments:annual wellness, anxiety/ depression [facility] 07-24-2021 [facility] Discharg e instructions Patient Education 07/24/2021 [...] height. This can be done either in [place] or metric measurements. Note that charts are available to help you find your BMI quickly and easily without having to do these calculations yourself. To calculate your BMI in [place] measurements, your health care provider will: [...] medical problems. BMI can be measured using [place] measurements or metric measurements. To interpret your [...] 12/30/2004 Document Revised: 04/02/2018 Document Reviewed: 03/03/2018 [employer] Patient Education 2020 [employer]. 07/24/2021 17:16:58 Health Maintenance, Female Health Maintenance, [...] 11/03/2011 Document Revised: 04/13/2019 Document Reviewed: 04/13/2019 [employer] Patient Education 2020 [employer]. Follow Up Care 06/26/2021 18:00:45 With:Leigh Ann Covington CNP Address: When: only if needed [facility] Evaluation + Plan note Future Appointments Appointment Date:10/03/2021 01:00:00 PM Scheduled Provider:Naya ABDI Location:[facility] Appointment Type:ILENE DAVID [facility] Evaluation + Plan note Future Appointments Appointment Date:03/25/2023 07:00:00 AM Scheduled Provider:Princess Dumont Location:[facility] Appointment Type: Open Future Scheduled TestsU Protein/Creat Ratio 02/19/23HgbA1c 02/19/23Microalbumin Level Urine 02/19/23TSH With T4fr Reflex 02/19/23Vitamin D 25 Hydroxy 02/19/23CBC w/ Auto Diff 02/19/23Comprehensive Metabolic Panel 02/19/23Lipid Panel 02/19/23XR Spine Cervical 4 or 5 Views 02/19/23 [facility] Evaluation + Plan note Future Appointments Appointment Date:10/21/2023 07:20:00 AM Scheduled Provider:Princess Dumont Location:[facility] Appointment Type: Open Future Scheduled TestsTSH With T4fr Reflex 02/19/23Vitamin D 25 Hydroxy 02/19/23CBC w/ Auto Diff 02/19/23Comprehensive Metabolic Panel 02/19/23Lipid Panel 02/19/23XR Spine Cervical 4 or 5 Views 02/19/23 [facility] Hospital course Narrative No data available for this section [facility] Hospital Discharge instructions No data available for this section [facility] Progress note No data available for this section [facility] Summary Purpose Family History No [...] content) DATE CREATED AUTHOR 08/01/2022 [facility] DATE CREATED AUTHOR AUTHOR'S ORGANIZ ATION 10/03/2023 [facility] DATE CREATED AUTHOR AUTHOR'S ORGANIZ ATION 11/03/2023 [facility] dical [facility] DATE CREATED AUTHOR AUTHOR'S ORGANIZ ATION 01/14/2024 [facility] Patient Care team informatio n (unrecognized section and content) Personnel Name: Princess Dumont Address: Address: [address] [place] [address]- Personnel Name: Princess Dumont Address: Address: [address] [place] [address]- Personnel Name: Princess Dumont Address: Address: [address] [place] [address]- Personnel Name: Princess Dumont Address: Address: [address] [place] [address]- FOR RECORDS PERTAINING TO PATIENTS WHO ARE [...] BE BASED ON THE PRIMARY CLINICAL RECORDS. [facility] [facility]. provides no warranty or guarantee of the accuracy or completeness of information in this document.
== END 2024-01-14 20:42 | disposition home or self-care (01) ==
LOC: LAB 20:41
PROVIDERS: Visit Provider Physician Assistant
DX: Z01.419 Encounter for gynecological examination (general) (routine) without abnormal findings (principal)
CPT/HCPCS: 88175

== ENCOUNTER 2024-08-29 16:24 | Outpatient (OUT) | payer OTHER, SELFPAY ==
[2024-08-29 16:41] LABS: Basophils Percent Auto 0.2 % (0.2-2.0); Eosinophils Absolute Auto 0.2 10^3/uL (0.0-0.7); Eosinophils Percent Auto 2.9 % (0.9-7.0); Hematocrit 39.3 % (36.0-48.0); Hemoglobin 13.6 g/dL (12.0-16.0); Immature Granulocytes Abs Auto 0.06 10^3/uL (0.00-0.03); Immature Granulocytes Pct Auto 0.7 % (0.0-0.5); Lymphocytes Absolute Auto 2.1 10^3/uL (1.2-3.8); Lymphocytes Percent Auto 25.4 % (20.5-60.0); Mean Corpuscular HGB Conc 34.6 g/dL (29.9-35.2); Mean Corpuscular Hemoglobin 30.2 pg (26.7-34.0); Mean Corpuscular Volume 87.3 fL (81.0-99.0); Mean Platelet Volume 10.9 fL (9.5-13.5); Monocytes Absolute Auto 0.5 10^3/uL (0.3-0.8); Monocytes Percent Auto 5.8 % (1.7-12.0); Neutrophils Absolute Auto 5.5 10^3/uL (1.4-6.5); Platelet Count 151 10^3/uL (150-450); White Blood Count 8.4 10^3/uL (4.0-11.0)
[2024-08-29 16:49] LABS: Estimated Average Glucose 91 mg/dL; Glycohemoglobin A1C 4.8 % (4.5-6.2)
[2024-08-29 16:54] LABS: Amphetamine Screen Urine NEGATIVE (NEGATIVE); Barbiturates Screen Urine NEGATIVE (NEGATIVE); Benzodiazepines Screen Urine NEGATIVE (NEGATIVE); Buprenorphine Screen Urine NEGATIVE (NEGATIVE); Cannabinoid Screen Urine NEGATIVE (NEGATIVE); Cocaine Screen Urine NEGATIVE (NEGATIVE); Methadone Screen Urine NEGATIVE (NEGATIVE); Methamphetamines Screen Urine NEGATIVE (NEGATIVE); Opiate Screen Urine NEGATIVE (NEGATIVE); Oxycodone Screen Urine NEGATIVE (NEGATIVE); Phencyclidine Screen Urine NEGATIVE (NEGATIVE); Tricyclic Antidepressant Urine NEGATIVE (NEGATIVE)
[2024-08-31 05:07] LABS: HIV Ab/p24 Ag Screen Non Reactive (Non Reactive)
[2024-08-31 06:08] LABS: HBsAg Screen Negative (Negative); HCV Ab Non Reactive (Non Reactive)
[2024-08-31 13:08] LABS: Rapid Plasma Reagin, Quant Non Reactive titer (NonRea<1:1)
== END 2024-08-29 16:25 | disposition home or self-care (01) ==
LOC: LAB 16:24
PROVIDERS: Visit Provider Obstetrics & Gynecology
DX: Z34.01 Encounter for supervision of normal first pregnancy, first trimester (principal); N92.6 Irregular menstruation, unspecified
CPT/HCPCS: 36415; 80307; 83036; 85025; 86592; 86762; 86803; 86850; 86900; 86901; 87086; 87340; 87389

== ENCOUNTER 2024-09-21 13:09 | Emergency (ER) | payer OTHER, SELFPAY ==
--- OUTSIDE RECORDS SUMMARY | 2024-09-21 13:14 | XMS_ITS | Encounter Summary ---
Author Organization [facility] Address [address] [place] [address] [place] [address] Care Team Providers Care Custody Assistant Name Role Phone Unavailable Primary Care Provider Unavailabl e Encounter Details Date Type Department Care Team (Late st Contact Info) Description 01/22/2024 Abstract [facility] [address] [place] [address] Layo Courtney, [facility] [place] Celina Hernandez, [facility]11 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 Tobacco Use Types Packs/Day Years Used Date Smoking Tobacco: Never Alcohol Use Standard Drinks/Week Comments Yes 0 (1 standard drink = 0.6 oz pur e alcohol) Beer 1-2 times per month Comments Unknown Sex and Gender Information Value Date Recorded Sex Assigned at Not on file Legal Sex Female 8:34 PM EDT Gender Identity Not on file Sexual Orientation Not on file documented as of this encounter Plan of Treatment Upcoming Encounters Date Type Department Care Team (Late st Contact Info) Description 10/11/2024 2:40 PM EDT Routine [facility] [address] [place] [address] Layo Courtney, [facility] Abhinav Hernandez, [facility]11 documented as of this encounter Visit Diagnoses Not on filedocumented in this encounter
--- OUTSIDE RECORDS SUMMARY | 2024-09-21 13:14 | XMS_ITS | Encounter Summary ---
Author Organization [facility] Address [address] [place] [address] Phone Care Team Providers Care Meteorology Faculty Member Name Role Phone Allyssa Robles RN Unavailable Unavailable Encounter Details Date Type Department Care Team (Late Contact Info) Description 06/23/2024 Lab Requisition [facility] [address] [place] [id number] Juan Chavarria MD [address] [place] [address] Encounter for test, result unknown 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 Tobacco Use Types Packs/Day Years Used Date Smoking Tobacco: Never Smokeless Tobacco: Never Alcohol Use Standard Drinks/Week Comments Not Currently 0 (1 standard drink = 0.6 oz pur e alcohol) Occassionally Comments Yes Sex and Gender Information Value Date Recorded Sex Assigned at Not on file Legal Sex Female 8:54 AM EDT Gender Identity Not on file Sexual Orientation Not on file COVID-19 Exposure Response Date Recorded In the last 10 days, have yo u been in contact with someone who was confirmed or suspected to have Coronavirus/COVID-19? No / Unsure 06/13/2024 10:30 AM EST documented as of this encounter Plan of Treatment Upcoming Encounters Date Type Department Care Team (Late Contact Info) Description 10/07/2024 7:45 AM EDT Appointment Valeria Hay [address] [place] [address] documented as of this encounter Procedures Procedure Name Priority Date/Time Associated Diagnosis Comments HUMAN CHORIONIC GONADOTROPIN, SERUM QUANTITATIVE STAT 06/23/2024 7:53 AM EST Encounter for test, result unknown documented in this encounter Results * (ABNORMAL) Human Chorionic Gonadotropin, Serum Quantitative (06/23/2024 7:53 AM EST) HCG, Beta-Quantitati ve 330(H) <5 mIU/mL LAB IMMUNOASSAY METHOD 06/23/2024 11:04 AM EST [facility] Comment:Low-level positive H CG results can be seen in early , in mia- or post-menopausal females due to normal pituitary HCG production, or with analytic interference. Repeat testing in 48-72 hours can aid in assessing for as results should double in this time period. FSH measurement is recommended in mia- or post-menopausal females as concurrent elevation of FSH can support pituitary production as the source of the HCG elevation. Blood Venous blood specimen / Unknown 06/23/2024 7:53 AM EST 06/23/2024 10:43 AM EST Narrative [facility] - 06/23/2024 11:04 AM EST Total HCG measurement is performed using the [employer] Access Immunoassay which detects intact HCG and free beta HCG subunit. This test is not indicated for use as a tumor marker. HCG testing is performed using a different test methodology at [facility] than other [facility]. Direct result comparison should only be made within the same method. us Juan Chavarria MD LAB BLOOD ORDERABLES Final R esult [facility] [address] [place] [id number] documented in this encounter Visit Diagnoses Diagnosis Encounter for test, result unknown documented in this encounter Care Teams Meteorology Faculty Member Relationship Specialty Start Date End Date Allyssa Robles, RN Registered Nurse Reproductive Endocrinology and Infertility 12/25/23 documented as of this encounter
--- OUTSIDE RECORDS SUMMARY | 2024-09-21 13:14 | XMS_ITS ---
Author Organization [facility] Address [address] [place] [address] Phone Care Team Providers Care Supervisor Phosphoric Acid Name Role Phone Allyssa Robles RN Unavailable Unavailable Fertility Core Status:Enrolled (Active) Start date:02/24/2024 Enrollment date:02/29/2024 Enrollment reason:Identified from a specialty prescription Current support & services provided:Refill Management, Benefits and PA Management Linked medications:lidocaine/prilocaine (Active), progesterone (Active), transparent dressing () Continued Care and Services Coordination
--- OUTSIDE RECORDS SUMMARY | 2024-09-21 13:14 | XMS_ITS | Encounter Summary ---
Author Organization [facility] Address [address] [place] [address] Care Team Providers Care Gasser Machine Operator Name Role Phone Unavailable Primary Care Provider Unavailabl e Encounter Details Date Type Department Care Team (Late st Contact Info) Description 04/13/2023 Clinisync Result Encounter [facility] External Department Unsolicited Rula Courtney, [facility] [place] [id number] 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 Tobacco Use Types Packs/Day Years [...] Description 10/11/2024 2:40 PM EDT Routine [facility] [address] [place] [address] Rula Courtney [facility] [place] [id number] documented as of this encounter Procedures Procedure Name Priority Date/Time Associated Diagnosis Comments FL HYSTEROSALPINGOGRAM 10:54 AM EST documented in this encounter Results * FL HYSTEROSALPINGOGRAM (04/13/2023 10:54 AM EST) Anatomical Region Laterality Modality Other 04/13/2023 10:5 4 AM EST Narrative 04/13/2023 10:56 [place] [address] Fluoroscopy Report Signed Patient: OLENA PEREYRA MR#: [id number] : 1995 Acct:[id number] Age/Sex: 27 / F ADM Date: 04/10/23 Loc: LAB Attending Dr: uRla Courtney D.O. Ordering Physician: Rula Courtney D.O. Date of Service: 04/10/23 Procedure(s): FL Hysterosal cath placement Accession Number(s): [id number] cc: Rula Courtney D.O.; Physician,Non-Staff [address] [place] [address] Patient Name: OLENA PEREYRA MRN: [id number] date: 1995 Sex: F Assigned Patient Location: LAB Current Patient Location: LAB Accession/Order Number: [id number] Exam Date: 04/10/2023 14:30 Report Date: 04/13/2023 10:54 At the request of: RULA COURTNEY Procedure: FL Hysterosal cath placement EXAM: FL Hysterosal cath placement HISTORY: Infertility TECHNIQUE: FINDINGS: Please see Operative Report. Electronically authenticated by: DARRYN LONDON Date: 04/13/2023 10:54 Dictated By: Darryn London Signed By: 04/13/23 1056 DD/ 1054 TD/TT: Seed Corn Manager Production: Procedure Note Radiology, Radiologist, MD - 04/13/2023 [place] [address] Fluoroscopy Report Signed Patient: OLENA PEREYRA RMR#: [id number] : 1995Acct:[id number] Age/Sex: 27 / FADM Date: 04/10/23 Loc: LAB Attending Dr: Rula Courtney D.O. Ordering Physician: Rula Courtney D.O. Date of Service: 04/10/23 Procedure(s): FL Hysterosal cath placement Accession Number(s): [id number] cc: Rula Courtney D.O.; Physician,Non-Staff [address] [place] [id number] Patient Name: OLENA PEREYRA MRN: [id number] date: 1995 Sex: F Assigned Patient Location: LAB Current Patient Location: LAB Accession/Order Number: [id number] Exam Date: 04/10/2023 14:30 Report Date: 04/13/2023 10:54 At the request of: RULA COURTNEY Procedure: FL Hysterosal cath placement EXAM: FL Hysterosal cath placement HISTORY: Infertility TECHNIQUE: FINDINGS: Please see Operative Report. Electronically authenticated by: DARRYN LONDON Date: 04/13/2023 10:54 Dictated By: Darryn London Signed By:04/13/23 1056 DD/ 1054 TD/TT: Seed Corn Manager Production: us Rula Courtney DO [facility] Final Result documented in this encounter Visit Diagnoses Not on filedocumented in this encounter
--- OUTSIDE RECORDS SUMMARY | 2024-09-21 13:14 | XMS_ITS | Clinical Summary ---
Author Organization [facility] Address [address] [place] [address] Phone Care Team Providers Care Churn Driller Name Role Phone Allyssa Robles RN Unavailable Unavailable Allergies Active Allergy Reactions Criticality Noted Date Comments Latex Rash Low 2023 Nickel Rash Low 2023 Medications [id number]- folic-omega3 29-1-400 mg combo pack,tablet and cap,DR Take by mouth. Activ e lidocaine-priloc mirta (Emla) 2.5-2.5 % creamIndications :Female infertility Apply topically once daily. Apply to treatment area 1 hour prior to injection. 30 g 2 05/03/2024 3:33 PM EST 4 02/24/20 25 Active Additional Information Patient not taking.Reported on 03/22/2024 progesterone 50 mg/mL injectionIndicat ions:Female infertility Draw up and inject 1.5 mL (75 mg) into the muscle at the same time each morning as directed per provider. 150 mL 05/03/2024 3:33 PM EST 4 03/29/20 25 Active estradiol (Estrace) 2 mg tabletIndication s:Female infertility Insert 1 tablet (2 mg) into the vagina 2 times a day. 5 06/06/19 26 Active estradiol (Estrace) 2 mg tabletIndication s:Female infertility Take 3 tablets (6 mg) by mouth once daily. 90 tablet 11 5 06/19/19 26 Active Active Problems Problem Noted Date Diagnosed Date Female infertility 03/17/2024 PONV (postoperative nausea and vomiting) 024 Comments Yes Encounters Date Type Department Care Team Description 08/15/2024 Abstract Valeria Hay [address] [place] [address] Layo Courtney DO 07/11/2024 4:00 PM EDT Office Visit Valeria Hay [address] [place] [address] Donya Abernathy, PACK OUT OPERATOR-INSEAMER Fertility testing (Primary Dx); Encounter to determine viability of , single or unspecified fetus 07/11/2024 3:30 PM EDT Ancillary Procedure Valeria Hay [address] [place] [address] Encounter to determine viability of , not applicable or unspecified fetus 07/11/2024 Travel 06/30/2024 7:30 AM EST Clinical Support [facility] [address] [facility] [address] [place] [address] Female infertility; Encounter to determine viability of , not applicable or unspecified fetus 06/30/2024 Orders Only [address] [place] [address] Leigh Ann Tuttle MD 06/30/2024 Lab Requisition [address] [place] [address] Leigh Ann Tuttle MD Female infertility, unspecified 06/30/2024 Travel from Last 3 Months Family History Medical History Relation Name Comments Polycystic kidney disease Brother Polycystic kidney disease Mother Relation Name Status Comments Brother Mother 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 Tobacco Use Types Packs/Day Years Used Date Smoking Tobacco: Never Smokeless Tobacco: Never Tobacco Cessation:Counseling Given: No Alcohol Use Standard Drinks/Week Comments Not Currently 0 (1 standard drink = 0.6 oz pur e alcohol) Occassionally Comments Yes Sex and Gender Information Value Date Recorded Sex Assigned at Not on file Legal Sex Female 8:54 AM EDT Gender Identity Not on file Sexual Orientation Not on file Last Filed Vital Signs Vital Sign Reading Time Taken Comments Blood Pressure 94/62 03/22/2024 10:45 AM EST Pulse 65 03/22/2024 10:45 AM EST Temperature 36.3 C (97.3 F) 03/22/2024 9:45 AM EST Respiratory Rate 17 03/22/2024 10:45 AM EST Oxygen Saturation 100% 03/22/2024 10:45 AM EST Inhaled Oxygen Concentration - - Weight 74.9 kg (165 lb 2 oz) 03/22/2024 8:29 AM EST Height 160 cm (5' 3 ) 03/22/2024 8:29 AM EST Body Mass Index 29.25 03/22/2024 8:29 AM EST Plan of Treatment Upcoming Encounters Date Type Department Care Team (Late st Contact Info) Description 10/07/2024 7:45 AM EDT Appointment Valeria Hay [address] [address] Health Maintenance Due Date Last Done Comments Lipid Panel 1995 Yearly Adult Physical 1995 MMR Vaccines (1 of 1 - Stand miya series) 01/17/2010 Varicella Vaccines (2 of 2 - 2-dose childhood series) 03/14/2010 12/20/2009 HPV Vaccines (1 - 3-dose series) 2012 Hepatitis B Vaccines (1 of 3 - 19+ 3-dose series) 2016 HPV/Cotest 2018 DTaP/Tdap/Td Vaccines (2 - T d or Tdap) 12/21/2019 12/20/2009 COVID-19 Vaccine ( - 2023-2 5 season) 2024 Influenza Vaccine (Season Ended) 2025 Cervical Cancer Screening 01/13/2027 Pap Smear 01/13/2027 01/14/2024 Zoster Vaccines (1 of 2) 12/12/2047 12/20/2009 RSV High Risk: (Elderly (60+ ) or Population) (1 - 1-dose 75+ series) 2072 Meningococcal Vaccine Aged Out 12/20/2009 No irvin dee eligible based on patient's age to complete this topic HIV Screening Completed 2023 Hepatitis C Screening Completed 2023 HIB Vaccines Aged Out No longer eligi ble based on patient's age to complete this topic Hepatitis A Vaccines Aged Out No long er eligible based on patient's age to complete this topic IPV Vaccines Aged Out No longer eligi ble based on patient's age to complete this topic Pneumococcal Vaccine: Pediat rics and At-Risk Adult Patients Aged Out No longer ed gible based on patient's age to complete this topic Rotavirus Vaccines Aged Out No longer eligible based on patient's age to complete this topic Procedures Procedure Name Priority Date/Time Associated Diagnosis Comments PROGESTERONE Routine 07/11/2024 4:12 PM EDT Fertility testing US OB TRANSVAGINAL Routine 07/11/2024 3: 43 PM EDT Encounter to determine viability of , not applicable or unspecified fetus HUMAN CHORIONIC GONADOTROPIN, SERUM QUANTITATIVE STAT 06/30/2024 7:21 AM EST Female infertility, unspecified HEPATITIS C ANTIBODY Routine 2023 10:21 AM EDT Screening for STDs (sexually transmitted diseases) HIV 1/2 ANTIGEN/ANTIBODY SCREEN WIH REFLEX TO CONFIRMATION Routine 2023 10:21 AM EDT Screening for STDs (sexually transmitted diseases) from Last 3 Months or Most Recently Relevant to Health Maintenance Results * Progesterone (07/11/2024 4:12 PM EDT) PROGESTERONE 53.5 ng/mL [facility] Comment: Reference Ranges Female Follicular Phase < 1.0 Luteal Phase 2.6-21.5 Post menopausal < 0.5 1st Trimester 4.1-34.0 2nd Trimester 24.0-76.0 3rd Trimester 52.0-302.0 Blood Venous blood specimen / Unknown 07/11/2024 4:12 PM EDT 07/11/2024 4:12 PM EDT us Donya Abernathy PACK OUT OPERATOR-INSEAMER LAB BLOOD ORDERABLES Florina rousseau Result [facility] [employer] [facility] [address] [place] [address] * US OB transvaginal (07/11/2024 3:43 PM EDT) Anatomical Region Laterality Modality Body Ultrasound 07/11/2024 2:28 PM EDT 07/11/2024 2:28 PM EDT Narrative 09/05/2024 2:23 PM EDT Interpreted by: Juan Chavarria Indication ======== Confirm Gestational Age ========= Moon . Number of embryos: 1 Dating ====== Conception: IVF Embryo Transfer Embryo transfer on: 06/13/2024 IVF / ET 5 d GA by IVF / ET 6 w + 5 d BROOKE by IVF / ET: 03/01/2025 Ultrasound examination on: 07/11/2024 GA by U/S based upon: CRL GA by U/S 6 w + 5 d BROOKE by U/S: 03/01/2025 Assigned: based on the IVF / ET date, selected on 07/11/2024 Assigned GA 6 w + 5 d Assigned BROOKE: 03/01/2025 Impression ========= Early single intrauterine with cardiac activity present. Size is consistent with dating provided. Assessment Gestational sac: visualized Location: intrauterine Yolk sac: visualized YS 3.6 mm 6w 3d 42% Papaioannou Embryo: visualized CRL 6.2 mm 6w 5d 52% Pexsters Cardiac activity: present FHR 131 bpm Placenta: circumferential Maternal Structures Uterus / Cervix Uterus: Visualized Uterus position: anteverted Cervix: Visualized Ovaries / Tubes / Adnexa Rt ovary: Visualized Rt ovary details: Normal Rt ovary D1 28.7 mm Rt ovary D2 24.0 mm Rt ovary D3 21.9 mm Rt ovary Vol 7.9 cm Lt ovary: Visualized Lt ovary details: Normal Lt ovary D1 23.1 mm Lt ovary D2 21.6 mm Lt ovary D3 14.4 mm Lt ovary Vol 3.8 cm Cul de Sac / Bladder / Kidneys / Other Cul de Sac: Visualized Free fluid: No free fluid visualized Method ====== Transvaginal assessment was indicated due to increased accuracy of transvaginal evaluation for early dating. View: Sufficient Procedure Note Juan Chavarria MD - 09/05/2024 Interpreted by: Juan Chavarria Indication ======== Confirm Gestational Age ========= Moon . Number of embryos: 1 Dating ====== Conception:IVF Embryo Transfer Embryo transfer on:06/13/2024 IVF / ET5 d GA by IVF / ET6 w + 5 d BROOKE by IVF / ET:03/01/2025 Ultrasound examination on:07/11/2024 GA by U/S based upon:CRL GA by U/S6 w + 5 d BROOKE by U/S:03/01/2025 Assigned:based on the IVF / ET date, selected on 07/11/2024 Assigned GA6 w + 5 d Assigned BROOKE:03/01/2025 Impression ========= Early single intrauterine with cardiac activity present. Size isconsistent with dating provided. Assessment Gestational sac:visualized Location:intrauterine Yolk sac:visualized YS3.6 mm6w 3d 42% Papaioannou Embryo:visualized CRL6.2 mm6w 5d 52% Pexsters Cardiac activity:present [id number] bpm Placenta:circumferential Maternal Structures Uterus / Cervix Uterus:Visualized Uterus position:anteverted Cervix:Visualized Ovaries / Tubes / Adnexa Rt ovary:Visualized Rt ovary details:Normal Rt ovary D128.7 mm Rt ovary D224.0 mm Rt ovary D321.9 mm Rt ovary Vol7.9 cm Lt ovary:Visualized Lt ovary details:Normal Lt ovary D123.1 mm Lt ovary D221.6 mm Lt ovary D314.4 mm Lt ovary Vol3.8 cm Cul de Sac / Bladder / Kidneys / Other Cul de Sac:Visualized Free fluid:No free fluid visualized Method ====== Transvaginal assessment was indicated due to increased accuracy oftransvaginal evaluation for early dating. View: Sufficient us Leigh Ann Tuttle MD IMG OB US PROCEDURES Final Re sult * (ABNORMAL) Human Chorionic Gonadotropin, Serum Quantitative (06/30/2024 7:21 AM EST) HCG, Beta-Quantitati ve 6,575(H) <5 mIU/mL LAB IMMUNOASSAY METHOD 06/30/2024 10:41 AM EST [facility] Comment:Low-level positive H CG results [...] elevation. Blood Venous blood specimen / Unknown 06/30/2024 7:21 AM EST 06/30/2024 10:01 AM EST Narrative [facility] - 06/30/2024 10:41 AM EST Total HCG measurement is performed using the [employer] [place] Access Immunoassay which detects intact HCG and free beta HCG subunit. This test is not indicated for use as a tumor marker. HCG testing is performed using a different test methodology at [facility] than other [facility]. Direct result comparison should only be made within the same method. us Leigh Ann Tuttle MD LAB BLOOD ORDERABLES Final Re sult Performing Organization Address City/State/[facility] Co de Phone Number [facility] [address] [phone] * Hepatitis C Antibody (2023 10:21 AM EDT) Hepatitis C AB Nonreactive Nonreactive LAB IMMUNOASSAY METHOD 2023 7:11 PM EDT [facility] Comment:Results from patient s taking biotin supplements or receiving high-dose biotin therapy should be interpreted with caution due to possible interference with this test. Providers may contact their local laboratory for further information. Blood Venous blood specimen / Unknown Venipuncture / Unknown 2023 10:21 AM EDT 2023 10:21 AM EDT Trish Christ Sun PACK OUT OPERATOR-INSEAMER LAB BLOOD ORDERABLES Fin al Result Performing Organization Address [facility] Co de Phone Number [facility] [id number] [place] [phone] * HIV 1/2 Antigen/Antibody Screen with Reflex to Confirmation (2023 10:21 AM EDT) HIV 1/2 Antigen/Antibo dy Screen with Reflex to Confirmation Nonreactive Nonreactive LAB IMMUNOASSAY METHOD 2023 7:37 PM EDT [facility] Blood Venous blood specimen / Unknown Venipuncture / Unknown 2023 10:21 AM EDT 2023 10:21 AM EDT Narrative [facility] - 2023 7:37 PM EDT HIV Ag/Ab screen is performed using the [employer] HIV Ag/Ab Combo assay which detects the presence of HIV p24 antigen as well as antibodies to HIV-1 (Group M and O) and HIV-2. No laboratory evidence of HIV infection. If acute HIV infection is suspected, consider testing for HIV RNA by PCR (viral load). Trish Christ Dino PACK OUT OPERATOR-INSEAMER LAB BLOOD ORDERABLES Fin al Result Performing Organization Address [facility] Co de Phone Number [facility] [id number] [place] [phone] from Last 3 Months or Most Recently Relevant to Health Maintenance Insurance [employer] [place] [employer] [place] [employer] Care Teams Churn Driller Relationship Specialty Start Date End Date Allyssa Robles, MISHEL Registered Nurse Reproductive Endocrinology and Infertility 12/25/23
--- OUTSIDE RECORDS SUMMARY | 2024-09-21 13:14 | XMS_ITS | Encounter Summary ---
Author Organization [facility] Address [address] [place] [address] Care Team Providers Care Mussel Opener Name Role Phone Unavailable Primary Care Provider Unavailabl e Encounter Details Date Type Department Care Team (Late st Contact Info) Description 04/10/2023 Clinisync Result Encounter [facility] External Department Unsolicited Rula Courtney, [facility] [address] 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 Tobacco Use Types Packs/Day Years [...] Description 10/11/2024 2:40 PM EDT Routine [facility] [address] [facility] [place] [address] Rula Courtney [facility] [place] [address] documented as of this encounter Procedures Procedure Name Priority Date/Time Associated Diagnosis Comments FL HYSTEROSALPINGOGRAPHY 023 3:10 PM EST documented in this encounter Results * FL HYSTEROSALPINGOGRAPHY (04/10/2023 3:10 PM EST) Anatomical Region Laterality Modality Other 04/10/2023 3:10 PM EST Narrative 04/10/2023 3:13 [place] [address] Fluoroscopy Report Signed Patient: OLENA PEREYRA MR#: [id number] : 1995 Acct:[id number] Age/Sex: 27 / F ADM Date: 04/10/23 Loc: LAB Attending Dr: Rula Courtney D.O. Ordering Physician: Rula Courtney D.O. Date of Service: 04/10/23 Procedure(s): FL hysterosalpingography Accession Number(s): [id number] cc: Rula Courtney D.O.; Physician,Non-Staff [place] [address] Patient Name: OLENA PEREYRA MRN: [id number] date: 1995 Sex: F Assigned Patient Location: LAB Current Patient Location: Accession/Order Number: [id number] Exam Date: 04/10/2023 14:30 Report Date: 04/10/2023 15:10 At the request of: RULA COURTNEY Procedure: FL hysterosalpingography EXAMINATION: FL hysterosalpingography HISTORY: Infertility COMPARISON: No relevant comparison available. TECHNIQUE: Informed consent was obtained. A sterile vaginal speculum was introduced and, following cleansing of the cervix, a balloon-tipped catheter was inserted into the endometrial cavity. The procedure was then completed in the usual manner with water-soluble contrast. Standard level fluoroscopic mode of operation utilized. FINDINGS: FALLOPIAN TUBES: Patent fallopian tubes bilaterally. ENDOMETRIAL CAVITY: No scarring, filling defects, or dilatation. OTHER: Negative. FL/FL hysterosalpingography IMPRESSION: Normal exam Electronically authenticated by: SRIDHAR LAINEZ Date: 04/10/2023 15:10 Dictated By: Sridhar Lainez M.D. Signed By: 04/10/23 151 DD/ 09 TD/TT: Dissolver Operator: Procedure Note Radiology, Radiologist, MD - 04/10/2023 [place] [address] Fluoroscopy Report Signed Patient: OLENA PEREYRA RMR#: [id number] : 1995Acct:[id number] Age/Sex: 27 / FADM Date: 04/10/23 Loc: LAB Attending Dr: Rula Courtney D.O. Ordering Physician: Rula Courtney D.O. Date of Service: 04/10/23 Procedure(s): FL hysterosalpingography Accession Number(s): [id number] cc: Rula Courtney D.O.; Physician,Non-Staff [place] [id number] Patient Name: OLENA PEREYRA MRN: [id number] date: 1995 Sex: F Assigned Patient Location: LAB Current Patient Location: Accession/Order Number: [id number] Exam Date: 04/10/2023 14:30 Report Date: 04/10/2023 15:10 At the request of: RULA COURTNEY Procedure: FL hysterosalpingography EXAMINATION: FL hysterosalpingography HISTORY: Infertility COMPARISON: No relevant comparison available. TECHNIQUE: Informed consent was obtained. A sterile vaginal speculum was introduced and, following cleansing of the cervix, a balloon-tippedcatheter was inserted into the endometrial cavity. The procedure was then completedin the usual manner with water-soluble contrast. Standard level fluoroscopicmode of operation utilized. FINDINGS: FALLOPIAN TUBES: Patent fallopian tubes bilaterally. ENDOMETRIAL CAVITY: No scarring, filling defects, or dilatation. OTHER: Negative. FL/FL hysterosalpingography IMPRESSION: Normal exam Electronically authenticated by: SRIDHAR LAINEZ Date: 04/10/2023 15:10 Dictated By: Sridhar Lainez M.D. Signed By:04/10/23 151 DD/ 09 TD/TT: Dissolver Operator: Rula Courtney DO [facility] Final Result documented in this encounter Visit Diagnoses Not on filedocumented in this encounter
--- OUTSIDE RECORDS SUMMARY | 2024-09-21 13:14 | XMS_ITS | Encounter Summary ---
Author Organization [facility] Address [address] [place] [address] Care Team Providers Care Full Stack Developer Name Role Phone Unavailable Primary Care Provider Unavailabl e Encounter Details Date Type Department Care Team (Late st Contact Info) Description 08/02/2024 Abstract [facility] OB [address] [place] [address] Layo Courtney, DO [address] [place] [address] 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 Tobacco Use Types Packs/Day Years Used Date Smoking Tobacco: Never Alcohol Use Standard Drinks/Week Comments Yes 0 (1 standard drink = 0.6 oz pur e alcohol) Beer 1-2 times per month Estimated Date of Delivery Comme nts Yes 03/01/2025 Based on Ultraso und Sex and Gender Information Value Date Recorded Sex Assigned at Not on file Legal Sex Female 8:34 PM EDT Gender Identity Not on file Sexual Orientation Not on file documented as of this encounter Plan of Treatment Upcoming Encounters Date Type Department Care Team (Late st Contact Info) Description 10/11/2024 2:40 PM EDT Routine [facility] [address] [place] [address] Layo Courtney, DO [address] [place] [address] documented as of this encounter Visit Diagnoses Not on filedocumented in this encounter
--- OUTSIDE RECORDS SUMMARY | 2024-09-21 13:14 | XMS_ITS | Encounter Summary ---
Author Organization [facility] Address [address] [place] [facility] [place] [address] Care Team Providers Care Senior Accounting Associate Name Role Phone Unavailable Primary Care Provider Unavailabl e Encounter Details Date Type Department Care Team (Late st Contact Info) Description 03/23/[address] [facility] OB [address] [facility] [address] Cassy Licea LPN [address] [place] [address] 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 Tobacco Use Types Packs/Day [...] Description 10/11/2024 2:40 PM EDT [facility]ine [facility] OB [address] [address] Layo Courtney, DO [address] [facility] [address] [place], [facility] documented as of this encounter Visit Diagnoses Not on filedocumented in this encounter
--- OUTSIDE RECORDS SUMMARY | 2024-09-21 13:14 | XMS_ITS | Encounter Summary ---
Author Organization [facility] Address [address] [place] [place] [address] Care Team Providers Care Emerging Solutions Executive Name Role Phone Unavailable Primary Care Provider Unavailabl e Encounter Details Date Type Department Care Team (Late st Contact Info) Description 01/21/2024 Orders Only [facility] [address] [place] [phone] Marilia Elder [address] [place] [address] 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 Tobacco Use Types Packs/Day Years [...] Description 10/11/2024 2:40 PM EDT Routine [facility] [address] [place] [address] Layo Courtney DO [address] [place] [address] Dr [place], [place] [id number] documented as of this encounter Procedures Procedure Name Priority Date/Time Associated Diagnosis Comments PAP SMEAR Routine 01/14/2024 12:00 AM EDT documented in this encounter Results * Pap Smear (01/14/2024 12:00 AM EDT) Swab Cervical swab / Unknown us [facility] CYTOLOGY ORDERABLES Final Re sult EXTERNAL LAB documented in this encounter Visit Diagnoses Not on filedocumented in this encounter
--- OUTSIDE RECORDS SUMMARY | 2024-09-21 13:14 | XMS_ITS | Encounter Summary ---
Author Organization [facility] Address [address] [place] [address] Phone Care Team Providers Care Vortex Operator Name Role Phone Allyssa Robles RN Unavailable Unavailable Encounter Details Date Type Department Care Team (Late Contact Info) Description 06/13/2024 Lab Requisition [facility] [address] [place] [address] Juan Chavarria MD [address] [place] [address] Female infertility, unspecified 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 Tobacco Use Types Packs/Day Years Used Date Smoking Tobacco: Never Smokeless Tobacco: Never Alcohol Use Standard Drinks/Week Comments Not Currently 0 (1 standard drink = 0.6 oz pur e alcohol) Occassionally Comments No Sex and Gender Information Value Date Recorded [...] Appointment Valeria Hay [address] [place] [address] documented as of this encounter Procedures Procedure Name Priority Date/Time Associated Diagnosis Comments PROGESTERONE STAT 06/13/2024 11:38 AM EST Female infertility, unspecified documented in this encounter Results * Progesterone (06/13/2024 11:38 AM EST) Progesterone 45.0 ng/mL LAB IMMUNOASSAY METHOD 06/13/2024 2:07 PM EST [facility] Blood Venous blood specimen / Unknown 06/13/2024 11:38 AM EST 06/13/2024 12:46 PM EST Narrative [facility] - 06/13/2024 2:07 PM EST REF VALUES Male <0.2-0.8 Follicular Phase <0.2-1.5 Luteal Phase 7.4-15.4 Post Menopausal <0.2-0.2 1ST Trimester 12.0-84.0 2ND Trimester 10.2-58.8 3RD Trimester 46.5-160 Progesterone is performed using the [employer] Access Immunoassay. Progesterone testing is performed using a different test methodology at [facility] than other [facility]. Direct result comparison should only be made within the same method. us Juan Chavarria MD LAB BLOOD ORDERABLES Final R esult [facility] [address] [place] [address] documented in this encounter Visit Diagnoses Diagnosis Female infertility, unspecified documented in this encounter Care Teams Vortex Operator Relationship Specialty Start Date End Date Allyssa Robles, RN Registered Nurse Reproductive Endocrinology and Infertility 12/25/23 documented as of this encounter
--- OUTSIDE RECORDS SUMMARY | 2024-09-21 13:14 | XMS_ITS | Encounter Summary ---
Author Organization [facility] Address [address] [place] [address] Phone Care Team Providers Care Trail Construction Worker Name Role Phone Allyssa Robles RN Unavailable Unavailable Encounter Details Date Type Department Care Team (Late Contact Info) Description 06/30/2024 Lab Requisition [facility] [address] [place] [phone] Leigh Ann Tuttle MD [address] [place] [address] Female infertility, unspecified 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 [...] suspected to have Coronavirus/COVID-19? No / Unsure 06/30/2024 7:23 AM EST documented as of this encounter Plan of Treatment Upcoming Encounters Date Type Department Care Team (Late Contact Info) Description 10/07/2024 7:45 AM EDT Appointment Valeria Hay [address] [place] [address] documented as of this encounter Procedures Procedure Name Priority Date/Time Associated Diagnosis Comments HUMAN CHORIONIC GONADOTROPIN, SERUM QUANTITATIVE STAT 06/30/2024 7:21 AM EST Female infertility, unspecified documented in this encounter Results * (ABNORMAL) Human Chorionic Gonadotropin, Serum Quantitative (06/30/2024 7:21 AM EST) HCG, Beta-Quantitati ve 6,575(H) <5 mIU/mL LAB IMMUNOASSAY METHOD 06/30/2024 10:41 AM EST [facility] Comment:Low-level positive H CG results can [...] AM EST 06/30/2024 10:01 AM EST Narrative [facility] - 06/30/2024 10:41 AM EST Total HCG measurement is performed using the Faith Acampo Access Immunoassay which detects intact HCG and free beta HCG subunit. This test is not indicated for use as a tumor marker. HCG testing is performed using a different test methodology at [facility] than other [facility]. Direct result comparison should only be made within the same method. us Leigh Ann Tuttle MD LAB BLOOD ORDERABLES Final Re sult [facility] [address] [place] [id number] documented in this encounter Visit Diagnoses Diagnosis Female infertility, unspecified documented in this encounter Care Teams Trail Construction Worker Relationship Specialty Start Date End Date Allyssa Robles, RN Registered Nurse Reproductive Endocrinology and Infertility 12/25/23 documented as of this encounter
--- OUTSIDE RECORDS SUMMARY | 2024-09-21 13:15 | XMS_ITS | Encounter Summary ---
Author Organization [facility] Address [address] [place] [address] Care Team Providers Care Flat Lock Machine Operator Name Role Phone Unavailable Primary Care Provider Unavailabl e Encounter Details Date Type Department Care Team (Late st Contact Info) Description 09/21/2024 Abstract [facility] [address] [place] [address] Layo Courtney, DO [facility] [place] [address] 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 Tobacco Use Types Packs/Day [...] Description 10/11/2024 2:40 PM EDT Routine [facility] [address] [place] [address] Layo Courtney, DO [address] [place] [address] documented as of this encounter Visit Diagnoses Not on filedocumented in this encounter
--- OUTSIDE RECORDS SUMMARY | 2024-09-21 13:15 | XMS_ITS | Encounter Summary ---
Author Organization [facility] Address [address] [place] [address] Care Team Providers Care Database Analyst Name Role Phone Unavailable Primary Care Provider Unavailabl e Encounter Details Date Type Department Care Team (Late st Contact Info) Description 09/06/2024 External Result Encounter [facility] External Department Unsolicited Brandy Sheehan PA [address] [place], [place] [id number] 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 Tobacco Use Types Packs/Day Years [...] Description 10/11/2024 2:40 PM EDT Routine [facility] [address] [place] [address] Layo Courtney, DO [address] [place], [place] [address] documented as of this encounter Procedures Procedure Name Priority Date/Time Associated Diagnosis Comments RECURRENT VAGINITIS (HTRX) Routine 09/06/2024 3:59 PM EDT documented in this encounter Results * RECURRENT VAGINITIS (HTRX) (09/06/2024 3:59 PM EDT) ATOPOBIUM VAGINAE 0.000 19.961 - 24.689 ppm 09/07/2024 6:01 AM EDT [facility] ATOPOBIUM VAGINAE Not Detected 19.961 - 24.689 ppm 09/07/2024 6:01 AM EDT [facility] BVAB 2,3 (BACTERIAL VAGINOSIS ASSOCIATED BACTERIA 2, 3); MOBILUNCUS SPP 0.000 19.961 - 24.689 ppm 09/07/2024 6:01 AM EDT [facility] BVAB 2,3 (BACTERIAL VAGINOSIS ASSOCIATED BACTERIA 2, 3); MOBILUNCUS SPP Not Detected 19.961 - 24.689 ppm 09/07/2024 6:01 AM EDT [facility] PRESTON ALBICANS, PARAPSILOSIS, TROPICALIS 0.000 19.961 - 30.770 ppm 09/07/2024 6:01 AM EDT [facility] PRESTON ALBICANS, PARAPSILOSIS, TROPICALIS Not Detected 19.961 - 30.770 ppm 09/07/2024 6:01 AM EDT [facility] PRESTON GLABRATA 0.000 23.000 - 32.138 ppm 09/07/2024 6:01 AM EDT [facility] PRESTON GLABRATA Not Detected 23.000 - 32.138 ppm 09/07/2024 6:01 AM EDT [facility] PRESTON KRUSEI 0.000 23.000 - 32.271 ppm 09/07/2024 6:01 AM EDT [facility] PRESTON KRUSEI Not Detected 23.000 - 32.271 ppm 09/07/2024 6:01 AM EDT [facility] CHLAMYDIA TRACHOMATIS 0.000 23.000 - 31.467 ppm 09/07/2024 6:01 AM EDT [facility] CHLAMYDIA TRACHOMATIS Not Detected 23.000 - 31.467 ppm 09/07/2024 6:01 AM EDT [facility] GARDNERELLA VAGINALIS 0.000 19.961 - 24.689 ppm 09/07/2024 6:01 AM EDT [facility] GARDNERELLA VAGINALIS Not Detected 19.961 - 24.689 ppm 09/07/2024 6:01 AM EDT [facility] MEGASPHAERA (TYPES 1, 2) 0.000 19.961 - 24.689 ppm 09/07/2024 6:01 AM EDT [facility] MEGASPHAERA (TYPES 1, 2) Not Detected 19.961 - 24.689 ppm 09/07/2024 6:01 AM EDT [facility] NEISSERIA GONORRHOEAE 0.000 23.000 - 32.117 ppm 09/07/2024 6:01 AM EDT [facility] NEISSERIA GONORRHOEAE Not Detected 23.000 - 32.117 ppm 09/07/2024 6:01 AM EDT [facility] TRICHOMONAS VAGINALIS 0.000 23.000 - 32.119 ppm 09/07/2024 6:01 AM EDT [facility] [place] TRICHOMONAS VAGINALIS Not Detected 23.000 - 32.119 ppm 09/07/2024 6:01 AM EDT [facility] MYCOPLASMA GENITALIUM 0.000 19.961 - 24.689 ppm 09/07/2024 6:01 AM EDT [facility] MYCOPLASMA GENITALIUM Not Detected 19.961 - 24.689 ppm 09/07/2024 6:01 AM EDT [facility] Tissue 09/06/2024 3:59 PM EDT 09/07/2024 1:25 AM EDT us Brandy SEARS LAB BLOOD ORDERABLES Final Resul t [facility] [address] [place] [address] documented in this encounter Visit Diagnoses Not on filedocumented in this encounter
--- OUTSIDE RECORDS SUMMARY | 2024-09-21 13:15 | XMS_ITS | Clinical Summary ---
Author Organization [facility] Address [address] [place] [address] Care Team Providers Care Cnc Maintenance Mechanic Name Role Phone Unavailable Primary Care Provider Unavailabl e Allergies Active Allergy Reactions Criticality Noted Date Comments Azithromycin Unknown 03/16/2023 Other Reaction(s): Unknown Latex Rash Low 03/16/2023 Other Reaction(s): Itching Nickel Itching,Rash Low 03/16/2023 Medications estradiol (Estrace) 2 MG tablet Insert 2 mg into the vagina in the morning and 2 mg in the evening. 06/06/2024 06/06/19 26 Active progesterone 50 MG/ML injection Inject 75 mg into the shoulder, thigh, or buttocks in the morning. 03/29/2024 03/29/20 25 Active MV-Min-Fe Fum-FA-DHA ( 1 PO) Take 1 each by mouth Daily Active cholecalciferol (Vitamin D-3) 125 MCG (5000 UT) capsule Take 5,000 Units by mouth Daily Active Active Problems Estimated Date of Delivery Comme nts Yes 03/01/2025 Based on Ultraso und No known active problems Encounters Date Type Department Care Team Description 09/21/2024 Abstract [facility] [address] [place] [address] Layo Courtney DO 09/13/2024 Telephone [facility] [place] [address] [place] [address] Niki Barbosa LPN 09/06/2024 2:50 PM EDT Routine [facility] [place] [address] [place] [address] Brandy Sheehan PA STD exposure; Second trimester ; 14 weeks gestation of ; Screening, , for anatomic survey 09/06/2024 External Result Encounter [facility] External Department Unsolicited Brandy Sheehan PA 09/06/2024 Bamboo flowsheet [facility] [address] [place] [address] Brandy Sheehan PA 08/29/2024 Clinisync Result Encounter [facility] External Department Unsolicited Layo Courtney, DO 08/12/[address] [address] [place] [address] Niki Barbosa LPN 08/08/2024 1:00 PM EDT Routine [facility] [address] [place] [address] Layo Courtney, 10 weeks gestation of ; First trimester ; resulting from in vitro fertilization in first trimester 08/08/2024 Bamboo flowsheet [facility] [address] [place] [address] Layo Courtney, 08/02/2024 Abstract [facility] [address] [place] [address] Layo Courtney, 07/29/2024 9:30 AM EDT Initial [facility] [address] [place] [address] GA: 9w2d from Last 3 Months Family History Medical History Relation Name Comments Melanoma Neg Hx Relation Name Status Comments Father Alive Mother Alive 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 Tobacco Use Types Packs/Day Years Used Date Smoking Tobacco: Never Tobacco Cessation:Counseling Given: Not Answered Alcohol Use Standard Drinks/Week Comments Yes 0 [...] Sign Reading Time Taken Comments Blood Pressure 110/82 09/06/2024 3:31 PM EDT Pulse - - Temperature - - Respiratory Rate - - Oxygen Saturation - - Inhaled Oxygen Concentration - - Weight 84.9 kg (187 lb 4 oz) 09/06/2024 3:31 PM EDT Height 160 cm (5' 3 ) 09/17/2022 12:00 PM EDT Body Mass Index 33.17 09/17/2022 12:00 PM EDT Plan of Treatment Upcoming Encounters Date Type Department Care Team (Late st Contact Info) Description 10/11/2024 2:40 PM EDT Routine [facility] OB [address] [facility] [address] Layo Courtney, DO [address] [place] [address] Health Maintenance Due Date Last Done Comments Influenza Vaccine (Season Ended) 2025 Procedures Procedure Name Priority Date/Time Associated Diagnosis Comments RECURRENT VAGINITIS (HTRX) Routine 09/06/2024 3:59 PM EDT POCT URINALYSIS DIPSTICK Routine 09/06/2024 3:46 PM EDT Screening, , for anatomic survey HBSAG SCREEN Routine 08/29/2024 4:35 PM EDT RAPID PLASMA REAGIN, QUANT Routine 08/29/2024 4:35 PM EDT HCV ANTIBODY RFX TO QUANT PCR Routine 08/29/2024 4:35 PM EDT ALL RUBELLA IGG AB Routine 08/29/2024 4: 35 PM EDT HIV AB/P24 AG WITH REFLEX Routine 08/29/2024 4:35 PM EDT ALL TYPE AND SCREEN Routine 08/29/2024 4 :35 PM EDT MLR HEMOGLOBIN A1C Routine 08/29/2024 4: 35 PM EDT ALL CBC WITH AUTO DIFF Routine 08/29/2024 4:35 PM EDT [facility] DRUG SCREEN RAPID (URINE) Routine 08/29/2024 4:25 PM EDT POCT URINALYSIS DIPSTICK Routine 08/08/2024 1:14 PM EDT 10 weeks gestation of First trimester POCT , URINE Routine 07/29/2024 9:57 AM EDT Missed menses POCT URINALYSIS DIPSTICK Routine 07/29/2024 9:56 AM EDT Missed menses from Last 3 Months Results * RECURRENT VAGINITIS (HTRX) (09/06/2024 3:59 PM EDT) [facility] ATOPOBIUM VAGINAE 0.000 19.961 - 24.689 ppm 09/07/2024 6:01 AM EDT [facility] ATOPOBIUM VAGINAE Not Detected 19.961 - 24.689 ppm 09/07/2024 6:01 AM EDT [facility] BVAB 2,3 (BACTERIAL VAGINOSIS ASSOCIATED BACTERIA 2, 3); MOBILUNCUS SPP 0.000 19.961 - 24.689 ppm 09/07/2024 6:01 AM EDT [facility] BVAB 2,3 (BACTERIAL VAGINOSIS ASSOCIATED BACTERIA 2, 3); MOBILUNCUS SPP Not Detected 19.961 - 24.689 ppm 09/07/2024 6:01 AM EDT [facility] PRESTON ALBICANS, PARAPSILOSIS, TROPICALIS 0.000 19.961 - 30.770 ppm 09/07/2024 6:01 AM EDT [facility] PRESTON ALBICANS, PARAPSILOSIS, TROPICALIS Not Detected 19.961 - 30.770 ppm 09/07/2024 6:01 AM EDT [facility] PRESTON GLABRATA 0.000 23.000 - 32.138 ppm 09/07/2024 6:01 AM EDT [facility] PRESTON GLABRATA Not Detected 23.000 - 32.138 ppm 09/07/2024 6:01 AM EDT [facility] PRESTON KRUSEI 0.000 23.000 - 32.271 ppm 09/07/2024 6:01 AM EDT [facility] PRESTON KRUSEI Not Detected 23.000 - 32.271 ppm 09/07/2024 6:01 AM EDT [facility] CHLAMYDIA TRACHOMATIS 0.000 23.000 - 31.467 ppm 09/07/2024 6:01 AM EDT [facility] CHLAMYDIA TRACHOMATIS Not Detected 23.000 - 31.467 ppm 09/07/2024 6:01 AM EDT [facility] GARDNERELLA VAGINALIS 0.000 19.961 - 24.689 ppm 09/07/2024 6:01 AM EDT [facility] GARDNERELLA VAGINALIS Not Detected 19.961 - 24.689 ppm 09/07/2024 6:01 AM EDT [facility] MEGASPHAERA (TYPES 1, 2) 0.000 19.961 - 24.689 ppm 09/07/2024 6:01 AM EDT [facility] MEGASPHAERA (TYPES 1, 2) Not Detected 19.961 - 24.689 ppm 09/07/2024 6:01 AM EDT [facility] NEISSERIA GONORRHOEAE 0.000 23.000 - 32.117 ppm 09/07/2024 6:01 AM EDT [facility] NEISSERIA GONORRHOEAE Not Detected 23.000 - 32.117 ppm 09/07/2024 6:01 AM EDT [facility] TRICHOMONAS VAGINALIS 0.000 23.000 - 32.119 ppm 09/07/2024 6:01 AM EDT [facility] TRICHOMONAS VAGINALIS Not Detected 23.000 - 32.119 ppm 09/07/2024 6:01 AM EDT [facility] MYCOPLASMA GENITALIUM 0.000 19.961 - 24.689 ppm 09/07/2024 6:01 AM EDT [facility] MYCOPLASMA GENITALIUM Not Detected 19.961 - 24.689 ppm 09/07/2024 6:01 AM EDT [facility] Tissue 09/06/2024 3:59 PM EDT 09/07/2024 1:25 AM EDT Brandy SEARS LAB BLOOD ORDERABLES Final Resul t [facility] [address] [place] [address] * (ABNORMAL) POCT urinalysis dipstick manually resulted (09/06/2024 3:46 PM EDT) Only the most recent of3 resultswithin the time period is included. Color, UA Yellow Clarity, UA Clear Glucose, UA Negative Negative - 2000(110) ++++ mg/dL Bilirubin, UA Negative Negative - 4(70) +++ mg/dL Ketones, UA Negative Negative - 160(16) ++++ mg/dL Spec Grav, UA 1.030 1 - 1.03 Blood, UA Negative Negative - 50 Jose/mcL pH, UA 6.0 5 - 9 Protein, UA Negative Negative - 2000(20) ++++ mg/dL Urobilinogen, UA 0.2 0.2 - 12 mg/dL Leukocytes, UA Positive Negative - 500+++ Onel/mcL Comment:small Nitrite, UA Negative Negative - Positive Urine 09/06/2024 3:46 PM EDT Brandy SEARS POINT OF CARE TEST ENTER/EDIT OR DERABLES Final Result * HBSAG SCREEN (08/29/2024 4:35 PM EDT) HBSAG SCREEN Negative Negative [facility] Comment: Performed at: [address] [id number] Manager Requirements: Jason Spangler PhD, Phone: [phone] 08/29/2024 4:35 PM EDT 08/29/2024 4:38 PM EDT Narrative [facility] - 08/31/2024 1:08 PM EDT Layo Sherwin LAB BLOOD ORDERABLES Final Resul t Performing Organization Address [facility] Co de Phone Number [facility] * RAPID PLASMA REAGIN, QUANT (08/29/2024 4:35 PM EDT) RAPID PLASMA REAGIN, QUANT Non Reactive NonRea<1: 1 titer [facility] Comment: Please Note: This test does not meet current guidelines for screening and diagnosis of syphilis. This test is intended for following treatment response in patients being treated for syphilis infection. To screen for syphilis infection, a reflex cascade that includes both RPR and a treponema-specific assay should be utilized, such as Treponema pallidum (Syphilis) Screening [place] (970688) or Rapid Plasma Reagin (RPR) Test With Reflex to Quantitative RPR and Confirmatory Treponema pallidum Antibodies (661515). Performed at: [facility] [employer] [id number] Manager Requirements: Jason Spangler PhD, Phone: [phone] 08/29/2024 4:35 PM EDT 08/29/2024 4:38 PM EDT Narrative [facility] - 08/31/2024 1:08 PM EDT [facility] LAB BLOOD ORDERABLES Final Resul t Performing Organization Address [facility] Co de Phone Number [facility] * HIV AB/P24 AG WITH REFLEX (08/29/2024 4:35 PM EDT) Pathologist [facility] HIV AB/P24 AG SCREEN Non Reactive Non Reactive [facility] Comment: HIV-1/HIV-2 antibodies and HIV-1 p24 antigen were NOT detected. There is no laboratory evidence of HIV infection. HIV Negative Performed at: [address] [id number] Manager Requirements: Jason Spangler PhD, Phone: [phone] 08/29/2024 4:35 PM EDT 08/29/2024 4:38 PM EDT Narrative [facility] - 08/31/2024 5:07 AM EDT Layo Sherwin DO LAB BLOOD ORDERABLES Final Resul t Performing Organization Address City/[facility] Co de Phone Number [facility] * HCV ANTIBODY RFX TO QUANT PCR (08/29/2024 4:35 PM EDT) Pathologist [facility] HCV AB Non Reactive Non Reactive [facility] INTERPRETATION: Comment . [facility] Comment: Not infected with HCV unless early or acute infection is suspected (which may be delayed in an immunocompromised individual), or other evidence exists to indicate HCV infection. Performed at: [address] [id number] Manager Requirements: Jason Spangler PhD, Phone: [phone] 08/29/2024 4:35 PM EDT 08/29/2024 4:38 PM EDT Narrative [facility] - 08/31/2024 8:08 AM EDT [employer] DO LAB BLOOD ORDERABLES Final Resul t Performing Organization Address [facility] de Phone Number [facility] * MLR HEMOGLOBIN A1C (08/29/2024 4:35 PM EDT) Pathologist [facility] GLYCOHEMOGLOBIN A1C 4.8 4.5 - 6.2 % [facility] Comment: ADA RECOMMENDED LIMIT 4.0 - 6.0 ADA THERAPEUTIC TARGET < 7.0 ACTION SUGGESTED > 7.0 ESTIMATED AVERAGE GLUCOSE 91 mg/dL TB 08/29/2024 4:35 PM EDT 08/29/2024 4:38 PM EDT Narrative [facility] - 08/29/2024 4:54 PM EDT Layo Sherwin DO [facility] Final Result Performing Organization Address City/[facility]/ZIP Co de Phone Number [facility] * ALL TYPE AND SCREEN (08/29/2024 4:35 PM EDT) [facility] BLOOD TYPE O Positive [facility] ANTIBODY SCREEN NEGATIVE [facility] 08/29/2024 4:35 PM EDT 08/29/2024 4:38 PM EDT Narrative [facility] - 08/29/2024 5:33 PM EDT [facility] , Layo Sherwin DO CLINISYNC Final Result [facility] * ALL RUBELLA IGG AB (08/29/2024 4:35 PM EDT) [facility] RUBELLA ANTIBODIES, IGG 1.40 Immune >0.99 index [facility] Comment: Non-immune <0.90 Equivocal 0.90 - 0.99 Immune >0.99 Performed at: [facility] Lab[address] [id number] Manager Requirements: Jason Spangler PhD, Phone: [phone] 08/29/2024 4:35 PM EDT 08/29/2024 4:38 PM EDT Narrative [facility] - 08/31/2024 8:08 AM EDT Layo Sherwin DO CLINIS[facility]NC Final Result Performing Organization Address [facility]/ZIP Co de Phone Number [facility] * (ABNORMAL) ALL CBC WITH AUTO DIFF (08/29/2024 4:35 PM EDT) [facility] WBC 8.4 4.0 - 11.0 10 3/uL TB[facility] TB[facility] RBC 4.50 4.20 - 5.40 10 6/uL [facility] HGB 13.6 12.0 - 16.0 g/dL [facility] TBH HCT 39.3 36.0 - 48.0 % [facility] MCV 87.3 81.0 - 99.0 fL [facility]H TBH MCH 30.2 26.7 - 34.0 pg TBH TBH MCHC 34.6 29.9 - 35.2 g/dL TB[facility] TBH RDW 12.0 11.0 - 15.0 % [facility] TBH PLT 151 150 - 450 10 3/uL TBH TBH MPV 10.9 9.5 - 13.5 fL [facility] NEUTROPHILS PERCENT AUTO 65.0 43.0 - 75.0 % [facility] LYMPHOCYTES PERCENT AUTO 25.4 20.5 - 60.0 % [facility] MONOCYTES PERCENT AUTO 5.8 1.7 - 12.0 % [facility]H TBH EO % 2.9 0.9 - 7.0 % [facility] BASOPHILS PERCENT AUTO 0.2 0.2 - 2.0 % [facility] IMMATURE GRANULOCYTES PCT AUTO 0.7(H) 0.0 - 0.5 % [facility] NEUTROPHILS ABSOLUTE AUTO 5.5 1.4 - 6.5 10 3/uL [facility] LYMPHOCYTES ABSOLUTE AUTO 2.1 1.2 - 3.8 10 3/uL [facility] MONOCYTES ABSOLUTE AUTO 0.5 0.3 - 0.8 10 3/uL TBH TBH EO # 0.2 0.0 - 0.7 10 3/uL [facility] BASOPHILS ABSOLUTE AUTO 0.0 0.0 - 0.1 10 3/uL [facility] IMMATURE GRANULOCYTES ABS AUTO 0.06(H) 0.00 - 0.03 10 3/uL [facility] 08/29/2024 4:35 PM EDT 08/29/2024 4:38 PM EDT Narrative [facility] - 08/29/2024 4:42 PM EDT us Layo Sherwin DO CL[facility]IS[facility]NC Final Result [facility] * TB DRUG SCREEN RAPID (URINE) (08/29/2024 4:25 PM EDT) Pathologist [facility] CANNABINOID SCREEN URINE NEGATIVE NEGATIVE TBH PHENCYCLIDINE SCREEN URINE NEGATIVE NEGATIVE TB[facility] COCAINE SCREEN URINE NEGATIVE NEGATIVE TBH METHAMPHETAMINES SCREEN URINE NEGATIVE NEGATIVE TBH OPIATE SCREEN URINE NEGATIVE NEGATIVE TBH AMPHETAMINE SCREEN URINE NEGATIVE NEGATIVE TBH BENZODIAZEPINES SCREEN URINE NEGATIVE NEGATIVE TBH TRICYCLIC ANTIDEPRESSANT URINE NEGATIVE NEGATIVE TBH METHADONE SCREEN URINE NEGATIVE NEGATIVE TBH BARBITURATES SCREEN URINE NEGATIVE NEGATIVE TBH OXYCODONE SCREEN URINE NEGATIVE NEGATIVE TBH BUPRENORPHINE SCREEN URINE NEGATIVE NEGATIVE [facility] Comment: DRUG CLASS TEST SYSTEM CUT-OFF CONCENTRATIONS ARE FOLLOWS: AMP (Amphetamine): 500 ng/mL BAR (Barbiturates): 200 ng/mL BZO (Benzodiazepines): 150 ng/mL BUP (Buprenorphine): 10 ng/mL RADHA (Cocaine): 150 ng/mL mAMP (Methamphetamine): 500 ng/mL MTD (Methadone): 200 ng/mL OPI (Opiates): 100 ng/mL OXY (Oxycodone): 100 ng/mL PCP (Phencyclidine): 25 ng/mL THC (Cannabinoids): 50 ng/mL TCA (Trycyclic Antidepressants): 300 ng/mL 08/29/2024 4:25 PM EDT 08/29/2024 4:37 PM EDT Narrative [facility] - 08/29/2024 4:54 PM EDT [facility] Sherwin DO CLINISYNC Final Result [facility] * (ABNORMAL) POCT , urine manually resulted (07/29/2024 9:57 AM EDT) Preg Test, Ur Positive Negative Urine 07/29/2024 9:57 AM EDT Layo Sherwin DO POINT OF CARE TEST ENTER/EDIT OR DERABLES Final Result from Last 3 Months Insurance [employer]
--- OUTSIDE RECORDS SUMMARY | 2024-09-21 13:15 | XMS_ITS | Encounter Summary ---
Author Organization [facility] Address [address] [place] [address] Care Team Providers Care Medical Professionals Name Role Phone Unavailable Primary Care Provider Unavailabl e Encounter Details Date Type Department Care Team (Late st Contact Info) Description 09/13/2024 Telephone [facility] [address] [place] [address] Niki Barbosa LPN 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 Tobacco Use Types Packs/Day Years [...] on file documented as of this encounter Miscellaneous Notes * Telephone Encounter - Niki Barbosa LPN - 09/13/2024 9:49 AM EDT 09/07/24 1:48 pm Patient had LMOM inquiring about recent testing and labs that were out of range. 09/13/24 @ 0954 am Called patient to discuss results and reassurance given that labs were WNL for . PVU Patient will call with any questions/concerns. Niki Thompson LPN documented in this encounter Plan of Treatment Upcoming Encounters Date Type Department Care Team (Late st Contact Info) Description 10/11/2024 2:40 PM EDT Routine [facility] [address] [place] [address] Layo Courtney, [address] [place] [address] documented as of this encounter Visit Diagnoses Not on filedocumented in this encounter
--- OUTSIDE RECORDS SUMMARY | 2024-09-21 13:15 | XMS_ITS | Encounter Summary ---
Author Organization [facility] Address [address] [place] [address] Phone Care Team Providers Care Plane Captain Name Role Phone Allyssa Robles RN Unavailable Unavailable Encounter Details Date Type Department Care Team (Late Contact Info) Description 06/06/2024 Lab Requisition [facility] [address] [place] [id number] America Chavez, TERRA [employer]OT[employer] MOLD MAKER-ARTISAN PLASTERER [address] [place], [place] [id number] Female infertility, unspecified 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 Tobacco Use [...] suspected to have Coronavirus/COVID-19? No / Unsure 06/06/2024 6:37 AM EST documented as of this encounter Plan of Treatment Upcoming Encounters Date Type Department Care Team (Late Contact Info) Description 10/07/2024 7:45 AM EDT Appointment Valeria Hay [address] [place] [address] documented as of this encounter Procedures Procedure Name Priority Date/Time Associated Diagnosis Comments PROGESTERONE STAT 06/06/2024 7:00 AM EST Female infertility, unspecified ESTRADIOL STAT 06/06/2024 7:00 AM EST Female infertility, unspecified documented in this encounter Results * Estradiol (06/06/2024 7:00 AM EST) Estradiol 558 pg/mL LAB IMMUNOASSAY METHOD 06/06/2024 11:56 AM EST [facility] Blood Venous blood specimen / Unknown 06/06/2024 7:00 AM EST 06/06/2024 10:58 AM EST Narrative [facility] - 06/06/2024 11:56 AM EST REF VALUES FOLLICULAR PHASE 20-144 MID CYCLE 64-357 LUTEAL PHASE 56-214 POSTMENOPAUSE < 32 PREPUBERTY < 20 FEMALE 10-18Y 8-110 MALE 10-18Y < 20 ADULT MALE < 40 America Chavez TERRA COTTA MOLD MAKER-ARTISAN PLASTERER LAB BLOOD ORDERABLES Final Result [facility] [address] [address] [place] [id number] * Progesterone (06/06/2024 7:00 AM EST) Progesterone 0.8 ng/mL LAB IMMUNOASSAY METHOD 06/10/2024 8:43 PM EST [facility] Comment: Blood Venous blood specimen / Unknown 06/06/2024 7:00 AM EST 06/06/2024 10:58 AM EST Narrative [facility] - 06/10/2024 8:43 PM EST REF VALUES Male <0.2-0.8 Follicular Phase <0.2-1.5 Luteal Phase 7.4-15.4 Post Menopausal <0.2-0.2 1ST Trimester 12.0-84.0 2ND Trimester 10.2-58.8 3RD Trimester 46.5-160 Progesterone is performed using the [employer] Access Immunoassay. Progesterone testing is performed using a different test methodology at [facility] than other [facility]. Direct result comparison should only be made within the same method. America Chavez TERRA COTTA MOLD MAKER-ARTISAN PLASTERER LAB BLOOD ORDERABLES Edite d Result - Final [facility] [address] [address] [place] [id number] documented in this encounter Visit Diagnoses Diagnosis Female infertility, unspecified documented in this encounter Care Teams Plane Captain Relationship Specialty Start Date End Date Allyssa Robles, RN Registered Nurse Reproductive Endocrinology and Infertility 12/25/23 documented as of this encounter
--- OUTSIDE RECORDS SUMMARY | 2024-09-21 13:15 | XMS_ITS | Encounter Summary ---
Author Organization [facility] Address [address] [place] [address] Phone Care Team Providers Care Block Sealer Name Role Phone Allyssa Robles RN Unavailable Unavailable Encounter Details Date Type Department Care Team (Late Contact Info) Description 06/07/2024 Lab Requisition [facility] [address] [place] [phone] America Chavez, SALESPERSON [employer]-AEROSPACE TECHNICIAN [address] [place], [place] [phone] Female infertility, unspecified 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 Tobacco Use [...] Appointment Valeria Hay [address] [place] [address] documented as of this encounter Procedures Procedure Name Priority Date/Time Associated Diagnosis Comments PROGESTERONE STAT 06/07/2024 8:45 AM EST Female infertility, unspecified ESTRADIOL STAT 06/07/2024 8:45 AM EST Female infertility, unspecified documented in this encounter Results * Progesterone (06/07/2024 8:45 AM EST) Progesterone 0.4 ng/mL LAB IMMUNOASSAY METHOD 06/10/2024 8:33 PM EST [facility] Comment: Blood Venous blood specimen / Unknown 06/07/2024 8:45 AM EST 06/07/2024 10:22 AM EST Narrative [facility] - 06/10/2024 8:33 PM EST REF VALUES Male <0.2-0.8 Follicular Phase <0.2-1.5 Luteal Phase 7.4-15.4 Post Menopausal <0.2-0.2 1ST Trimester 12.0-84.0 2ND Trimester 10.2-58.8 3RD Trimester 46.5-160 Progesterone is performed using the [employer] Access Immunoassay. Progesterone testing is performed using a different test methodology at [facility] than other [facility]. Direct result comparison should only be made within the same method. America Chavez SALESPERSON [employer]-AEROS[employer]ACE TECHNICIAN LAB BLOOD ORDERABLES Edite d Result - Final [facility] [address] [id number] * Estradiol (06/07/2024 8:45 AM EST) Estradiol 2,870 pg/mL LAB IMMUNOASSAY METHOD 06/07/2024 10:43 AM EST [facility] Blood Venous blood specimen / Unknown 06/07/2024 8:45 AM EST 06/07/2024 10:22 AM EST Narrative [facility] - 06/07/2024 10:43 AM EST REF VALUES FOLLICULAR PHASE 20-144 MID CYCLE 64-357 LUTEAL PHASE 56-214 POSTMENOPAUSE < 32 PREPUBERTY < 20 FEMALE 10-18Y 8-110 MALE 10-18Y < 20 ADULT MALE < 40 us America Chavez SALESPERSON [employer] TECHNICIAN LAB BLOOD ORDERABLES Final Result [facility] [address] [place] [address] documented in this encounter Visit Diagnoses Diagnosis Female infertility, unspecified documented in this encounter Care Teams Block Sealer Relationship Specialty Start Date End Date Allyssa Robles, RN Registered Nurse Reproductive Endocrinology and Infertility 12/25/23 documented as of this encounter
--- OUTSIDE RECORDS SUMMARY | 2024-09-21 13:18 | XMS_ITS | CCD ---
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 Name Role Phone Rachana LYONS Primary Care Physician SHERWIN ., DR HORTA Attending Unavailable SHERWIN ., DR HORTA Admitting Unavailable SHERWIN ., DR HORTA Consulting Unavailable SHERWIN ., DR HORTA Admitting Unavailable SHERWIN ., DR HORTA Consulting Unavailable SHERWIN ., DR HORTA Attending Unavailable UNLU, RACQUEL Consulting Unavailable Princess Rapp Primary Care Physician Allyssa Robles RN Unavailable Unavailable Mlalory Jauregui Attending Unavailable Princess Rapp Attending Unavailable Princess Rapp Attending Unavailable Princess Rapp Attending Unavailable Mallory Jauregui Primary Care Physician Unavailable Primary Care Provider UnavailGinger Messer LPN Unavailable Unavailab evert Robles RN, Allyssa Unavailable Unavailable TRISH THORPE Attending Unavailable AFUA JULIAN I Attending Unavailable JUAN CHAVARRIA Attending Unavailable LEIGH ANN TUTTLE Attending Unavailable JUAN CHAVARRIA Referring Unavailable DWIGHT, AMERICA R Referring Unavailable DWIGHT, AMERICA R Referring Unavailable DWIGHT, AMERICA R Referring Unavailable DWIGHT, AMERICA R Referring Unavailable DWIGHT, AMERICA R Referring Unavailable JUAN CHAVARRIA Attending Unavailable BETH WARREN Referring Unavailable DWIGHT, AMERICA R Referring Unavailable GABE, DONYA L Referring Unavailable GABE, DONYA L Referring Unavailable GABE, DONYA L Referring Unavailable GABE, DONYA L Referring Unavailable JUAN CHAVARRIA Attending Unavailable GABE, DONYA L Referring Unavailable GABE, DONYA L Referring Unavailable GABE, DONYA L Referring Unavailable JUAN CHAVARRIA Attending Unavailable JUAN CHAVARRIA Referring Unavailable LEIGH ANN TUTTLE Referring Unavailable DONYA ABERNATHY Attending Unavailable LAYO COURTNEY Attending Unavailable SANJEEV SAVAGE Attending Unavailable BRANDY SHEEHAN Attending Unavailable BRANDY SHEEHAN Attending Unavailable Allergies Allergy Classification Reported Allergen(s) Allergy Type Date of Onset Reaction(s) Facility (20 sources) Azithromycin; Translations: [azithromycin] Drug Allergy 03-16-2023 Unknown (qualifier value), Unknown [facility] Work Phone: (20 sources) Latex; Translations: [Latex] Drug allergy 03-16-[address] [facility] Work Phone: (20 sources) nickel; Translations: [Nickel] Drug Allergy 03-16-2023 Rash, Itching [facility] Work Phone: Medications Current Medications Medication Drug Class(es) Dates Sig (Normalized) Sig (Original) cholecalciferol 0.125 mg oral capsule (7 sources) Vitamin D take 1 capsule by mouth once daily cholecalciferol (Vitamin D-3) 125 MCG (5000 UT) capsule Take 5,000 Units by mouth Daily Active clobetasol propionate 0.0005 mg/mg topical ointment (6 sources) Corticosteroid Start: 10-02-2023 clobetasol propionate 0.05% top oint 1 bonifacio, Topical, BID, 60 gm, Refill(s) 1, Apply a thin film to affected area. Do not use to face, armpits, groin., [facility]/pharmacy #[id number], 162, cm, 10/02/23 11:23:00 EDT, Height/Length Dosing, 76.7, kg, 10/02/23 11:23:00 EDT, Weight Dosing Start Date: 10/02/23 Status: Ordered Start: 02-10-2022 clobetasol pro pionate 0.05% top oint 1 bonifacio, Topical, BID, 45 gram, Refill(s) 0, Apply a thin film to affected area. Do not use to face, armpits, groin., [facility], 160, cm, 07/24/21 17:02:00 EDT, Height/Length Dosing, 71.6, kg, 07/24/21 17:02:00 EDT, Weight Dosing Start Date: 02/10/22 Status: Ordered Start: 01-29-2021 clobetasol pro pionate 0.05% top oint 1 bonifacio, Topical, BID, 45 gram, Refill(s) 1, [facility], 160, cm, 01/29/21 16:48:00 [...] spasm, # 30 tab(s), Refills(s) 1, [id number], cm, 02/19/23 7:51:00 EDT, Height/Length Dosing, 68.7, kg, 02/19/23 7:51:00 EDT, Weight Dosing Start Date: 02/19/23 Status: Ordered estradiol 2 mg oral tablet (20 sources) Estrogen Start: 02-24-2024 End: 06-06-2025 estradiol (Estrace) 2 MG tablet Insert 2 mg into the vagina in the morning and 2 mg in the evening. 06/06/2024 06/06/2025 Active Start: 02-24-2024 End: 06-19-2025 take 3 tablets by mouth once daily estradiol (Estrace) 2 mg tablet Indications: Female infertility Take 3 tablets (6 mg) by mouth once daily. 90 tablet 11 06/19/2024 06/19/2025 Active ethinyl estradiol 0.03 mg / norethindrone acetate 1.5 mg oral tablet (2 sources) Estrogen Start: 09-27-2020 take 1 tablet by mouth once daily 1.5/30 oral tablet 1 tab(s), Oral, Daily, 84 tab(s), Refill(s) 6, Therapeutic tx; may refill early, [facility], 160, cm, 09/27/20 16:16:00 [...] Refill(s) 0 Start Date: 09/30/18 Status: Ordered Octoberl oral tablet (1 source) Start: 09-27-2020 take 1 tablet by mouth once daily oral tablet 1 tab(s), Oral, Daily, 84 tab(s), Refill(s) 6, Therapeutic tx; september refill early, [facility], 160, cm, 09/27/20 16:16:00 [...] hour of each main meal containing fat, [facility], 160, cm, 07/24/21 17:02:00 EDT, [...] Date: 06/26/21 Stop Date: 07/26/21 Status: Ordered MV-Min-Fe Fum-FA-DHA ( 1 PO) (7 sources) MV-Min- Fe Fum-FA-DHA ( 1 PO) Take 1 each by mouth Daily Active [id number] ic-[id number] 29-1-400 mg combo pack,tablet and cap,DR (13 sources) -hrdi- fo lic-omega3 29-1-400 mg combo pack,tablet and cap,DR Take by mouth. Active progesterone 50 mg/ml injectable solution (20 sources) Progesterone Start: 03-29-2024 End: 03-29-2025 progesterone 50 MG/ML injection Inject 75 mg into the shoulder, thigh, or buttocks in the morning. 03/29/2024 03/29/2025 Active Start: 02-24-2024 End: 03-29-2025 progesterone 50 mg/mL inject ion Indications: Female infertility Draw up and inject 1.5 mL (75 mg) into the muscle at the same time each morning as directed per provider. 150 mL 05/03/2024 3:33 PM EST 03/29/2024 03/29/2025 Active topiramate 50 mg oral tablet (2 sources) Start: 10-02-2023 take 1 tablet by mouth once daily Topamax 50 mg Tab 50 mg = 1 tab(s), Oral, Daily, # 90 tab(s), Refills(s) 3, Pharmacy: [facility]/pharmacy #[id number], 162, cm, 10/02/23 11:23:00 EDT, Height/Length Dosing, 76.7, kg, 10/02/23 11:23:00 EDT, Weight Dosing Start Date: 10/02/23 Status: Ordered Start: 08-27-2023 take 2 tablets by [facility] once daily Topamax 25 mg Tab 50 mg = 2 tab(s), Oral, Daily, # 180 tab(s), Refills(s) 0, Pharmacy: [facility]/pharmacy #[id number], 162, cm, 08/27/23 17:49:00 EDT, Height/Length Dosing, 75.4, kg, 08/27/23 17:49:00 EDT, Weight Dosing Start Date: 08/27/23 Status: Ordered transparent dressings 2 3/8 X 2 3/4 bandage (11 sources) Start: 05-03-2024 End: 08-01-2024 transparent dressings 2 3/8 X 2 3/4 bandage Indications: Female infertility Use as directed to cover lidocaine cream. 90 each 05/03/2024 3:33 PM EST 05/03/2024 08/01/2024 Active Start: 02-24-2024 End: 05-24-2024 transparent dressings 2 3/8 X 2 3/4 bandage Indications: Female infertility Use as directed to cover lidocaine cream. 30 each 3 03/11/2024 12:36 PM EST 02/24/2024 05/24/2024 Active Start: 02-24-2024 End: 05-24-2024 transparent dressings 2 3/8 X 2 3/4 bandage Indications: Female infertility Use as directed to cover lidocaine cream. 30 each 3 02/24/2024 05/24/2024 Active Completed/Discontinued Medications Medication Drug Class(es) Dates Sig (Normalized) Sig (Original) cetrorelix 0.25 mg injection (15 sources) Gonadotropin Releasing Hormone Antagonist Start: 02-09-2024 End: 03-22-2024 inject 0.25 mg by subcutaneous injection once daily, then inject 0.25 mg by subcutaneous injection once daily cetrorelix (Cetrotide) 0.25 mg injection Indications: Female infertility Inject 0.25 mg under the skin once daily. Reconstitute according to instructions. Inject 0.25 mg (1 syringe) under the skin once daily as directed per provider. 5 kit 2 03/09/2024 03/22/2024 Discontinued (Therapy completed) chorionic gonadotropin 5000 unt/ml injectable solution (8 sources) Gonadotropin Start: 02-09-2024 End: 03-09-2024 chorionic gonadotropin, human (NovareL) 5,000 unit recon soln injection Indications: Female infertility Inject 10,000 Units under the skin 1 time if needed (N/A) for up to 1 dose. Reconstitute according to instructions and inject 10,000 units (1 mL) under the skin as a one time dose, as directed per provider for trigger. 02/09/2024 03/09/2024 Discontinued (Med List Cleanup) Ethinyl Estradiol / norgestimate (20 sources) Progestin, Estrogen Start: 01-22-2024 End: 03-22-2024 take 1 tablet by mouth once daily norgestimate-ethin yl estradioL (Ortho-Cyclen) 0.25-35 mg-mcg tablet Indications: Female infertility Take 1 tablet by mouth once daily. Take active pills only as directed per provider 28 tablet 2 01/22/2024 03/22/2024 Discontinued (Therapy completed) Start: 01-22-2024 End: 01-21-2025 take 1 tablet by mouth once daily norgestimate-ethinyl estradioL (Ortho-Cyclen) 0.25-35 mg-mcg tablet Indications: Female infertility Take 1 tablet by mouth once daily. Take active pills only as directed per provider 28 tablet 2 01/22/2024 01/21/2025 Active follicle stimulating hormone 75 unt / luteinizing hormone 75 unt injection (16 sources) Gonadotropin Start: 02-09-2024 End: 03-22-2024 inject 75 [IU] by subcutaneous injection once daily in the evening menotropins (Menopur) 75 unit recon soln injection Indications: Female infertility Inject 75 Units under the skin once daily in the evening, as directed by provider 9 each 2 03/07/2024 03/22/2024 Discontinued (Therapy completed) 1.5 ml follitropin pallavi 600 unt/ml pen injector (16 sources) Start: 03-01-2024 End: 03-22-2024 inject 225 [IU] by subcutaneous injection once daily in the evening follitropin pallavi (Gonal-f) 900/1.5 unit/mL pen injector pen injection Indications: Female infertility Inject 225 Units under the skin once daily in the evening, as directed by provider 1 each 2 03/07/2024 03/22/2024 Discontinued (Therapy completed) Start: 02-09-2024 End: 03-09-2024 inject 250 [IU] by subcutaneous injection once daily in the evening follitropin pallavi (Gonal-f) 900/1.5 unit/mL pen injector pen injection Indications: Female infertility Inject 250 Units under the skin once daily in the evening. Inject under the skin as directed by provider 02/09/2024 03/09/2024 Discontinued (Med List Cleanup) 0.5 ml ganirelix acetate 0.5 mg/ml prefilled syringe (7 sources) Gonadotropin Releasing Hormone Antagonist Start: 03-07-2024 End: 03-22-2024 inject 0.5 mL by subcutaneous injection once daily in the morning ganirelix (Orgalutran) 250 mcg/0.5 mL syringe injection Indications: Female infertility Inject 0.5 mL (250 mcg) under the skin once daily in the morning, as directed per provider. 4 each 2 03/07/2024 03/22/2024 Discontinued (Therapy completed) ibuprofen 600 mg oral tablet (5 sources) Nonsteroidal Anti-inflammatory Drug Start: 02-19-2023 take 4-7 tablets by mouth every eight hours as needed ibuprofen 600 mg Tab 600 mg = 1 tab(s), Oral, q8hr, PRN Pain 4-7, # 90 tab(s), Refills(s) 1, Pharmacy: [facility]/pharmacy #[id number], 162, cm, 02/19/23 7:51:00 EDT, [...] Refills(s) 0 Start Date: 02/19/23 Status: Ordered leuprolide acetate 5 mg/ml injectable solution (16 sources) Gonadotropin Releasing Hormone Receptor Agonist Start: 03-07-2024 End: 03-22-2024 leuprolide (Lupron) 1 mg/0.2 mL injection Indications: Female infertility Using an insulin syringe, draw up 80 units and inject under the skin as a one time dose, as directed per provider for trigger. 1 kit 03/11/2024 12:51 PM EST 03/07/2024 03/22/2024 Discontinued (Therapy completed) Start: 02-09-2024 End: 03-09-2024 inject 0.8 mL by subcutaneous injection once leuprolide (Lupron) 1 mg/0.2 mL injection Indications: Female infertility Inject 0.8 mL (4 mg total) under the skin if needed (N/A). Using an insulin syringe, draw up 80 units and inject under the skin as a one time dose, as directed per provider for trigger. 1 kit 03/01/2024 03/09/2024 Discontinued (Med List Cleanup) lidocaine 25 mg/ml / prilocaine 25 mg/ml topical cream (15 sources) Antiarrhythmic, Amide Local Anesthetic Start: 02-24-2024 End: 02-23-2025 lidocaine-prilocaine (Emla) 2.5-2.5 % cream Apply topically Daily 02/24/2024 08/08/2024 Discontinued Start: 02-24-2024 End: 02-23-2025 lidocaine-prilocaine (Emla) 2.5-2.5 % cream Indications: Female infertility Apply topically once daily. Apply to treatment area 1 hour prior to injection. 30 g 2 05/03/2024 3:33 PM EST 02/24/2024 02/23/2025 Active metFORMIN hydrochloride 500 mg oral tablet (5 sources) Biguanide Start: 02-19-2023 MetFORMIN (Eqv -Glucophage XR) 500 mg oral tablet, extended release 30 EA, 0 Refill(s), TAKE 1 TABLET BY MOUTH EVERY DAY FOR 30 DAYS, Refills(s) 0 Start Date: 02/19/23 Status: Ordered End: 01-14-2024 take 1 tablet by mouth every twenty-four hours at mealtime metFORMIN XR (Glucophage-XR) 500 MG 24 hr tablet Take 500 mg by mouth in the evening. Take with meals. 01/14/2024 Discontinued syringe, disposable, (BD Safety-Cole with Luer-Cole) 3 mL syringe (1 source) Start: 03-01-2024 End: 03-09-2024 syringe, disposable, (BD Safety-Cole with Luer-Cole) 3 mL syringe Indications: Female infertility Use as directed to mix and administer Menopur 30 each 3 03/01/2024 03/09/2024 Discontinued (Med List Cleanup) Problems Active Problems Problem Classification Problem Date Documented Date Episodic/Chronic Administrative/socia l admission (19 sources) Patient encounter status; Translations: [Persons encountering health services in other specified circumstances] Onset: 07-23-2021 Episodic Allergic reactions (1 source) Eczema; Translations: [Dermatitis, unspecified] Onset: 10-02-2023 Episodic Anxiety disorders (6 sources) Anxiety 09-30-2018 Chronic Esophageal disorders (7 sources) Gastroesophageal reflux disease; Translations: [Gastroesophageal reflux disease without esophagitis] Onset: 04-06-2024 09-30-2018 Chronic Female infertility (20 sources) Female infertility; Translations: [Female infertility, unspecified] Onset: 2023 02-09-2024 Chronic Headache; including migraine (15 sources) Headache; Translations: [Headache, unspecified] Onset: 02-19-2023 Episodic Joint disorders and dislocations; trauma-related (6 sources) Tear of medial meniscus of knee 11-12-2015 Episodic Malaise and fatigue (7 sources) Fatigue; Translations: [Other fatigue] Onset: 02-19-2023 09-30-2018 Episodic Menstrual disorders (8 sources) Irregular menstruation, unspecified; Translations: [Menorrhagia] Onset: 07-26-2022 Chronic Other complications of (2 sources) with inconclusive viability, not applicable or unspecified; Translations: [ with inconclusive viability, not applicable or unspecified] Onset: 06-30-2024 Episodic Other endocrine disorders (1 source) Polycystic ovarian syndrome; Translations: [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 Other injuries and conditions due to external causes (6 sources) Injury of dental structures 11-12-2015 Episodic Other nutritional; endocrine; and metabolic disorders (6 sources) Body mass index 30+ - obesity 01-29-2021 Chronic Other nutritional; endocrine; and metabolic disorders (7 sources) Overweight in adulthood with body mass index of 25 or more but less than 30; Translations: [Body mass index (BMI) 27.0-27.9, adult] Onset: 07-24-2021 Episodic Other nutritional; endocrine; and metabolic disorders (7 sources) Overweight; Translations: [Overweight] Onset: 07-24-2021 Episodic Other nutritional; endocrine; and metabolic disorders (6 sources) Weight gain 10-13-2019 Episodic Other and delivery including normal (6 sources) ; Translations: [Encounter for supervision of normal , unspecified, unspecified trimester] 07-29-2024 Episodic Other skin disorders (6 sources) Inflammatory dermatosis 01-29-2021 Episodic Other skin disorders (1 source) Non-scarring alopecia; Translations: [Nonscarring hair loss, unspecified] Onset: 04-06-2024 Episodic Residual codes; unclassified (6 sources) FH: Polycystic kidney 09-30-2018 Episodic Residual codes; unclassified (1 source) Gestation period, 9 weeks; Translations: [9 weeks gestation of ] 07-29-2024 Episodic Residual codes; unclassified (2 sources) Gestation period, 10 weeks; Translations: [10 weeks gestation of ] 08-08-2024 Episodic Residual codes; unclassified (2 sources) Gestation period, 14 weeks; Translations: [14 weeks gestation of ] 09-06-2024 Episodic Screening and history of mental health and substance abuse codes (1 source) H/O: psychiatric disorder; Translations: [Personal history of other mental and behavioral disorders] Onset: 04-06-2024 Episodic Spondylosis; intervertebral disc disorders; other back problems (7 sources) Neck pain; Translations: [Cervicalgia] Onset: 02-19-2023 Episodic Sprains and strains (6 sources) Rupture of anterior cruciate ligament 11-12-2015 Episodic Unclassified (20 sources) Patient encounter status 05-03-2019 Unclassified (2 sources) IVF Consultation Onset: 12-28-2023 Viral infection (6 sources) Verruca vulgaris 09-30-2018 Episodic Past or Other Problems Problem Classification Problem Date Documented Date Episodic/Chronic Contraceptive and procreative management (8 sources) 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; Translations: [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] Onset: 2023 2023 Episodic Immunizations and screening for infectious disease (7 sources) Encounter for screening for human papillomavirus (HPV); Translations: [Exposure to sexually transmissible disorder] Onset: 07-26-2022 09-06-2024 Episodic Nausea and vomiting (20 sources) Postoperative nausea and vomiting; Translations: [Nausea with vomiting, unspecified] Onset: 01-28-2024 01-28-2024 Episodic Other female genital disorders (4 sources) Polyp of corpus uteri; Translations: [Polyp of corpus uteri] Onset: 01-25-2024 01-28-2024 Episodic Other screening for suspected conditions (not mental disorders or infectious disease) (6 sources) Encounter for screening for malignant neoplasm of cervix; Translations: [Encounter for other screening for genetic and chromosomal anomalies] Onset: 07-23-2022 Episodic Unclassified (1 source) over heated( Confirmed ) 07-14-2013 Comment on above: 2 years ago when she would becomeoverheated shewould pass out and afterwards have a really bad headache. dr el give her medications for migraines, but pt wasnt had episode since. Unclassified (5 sources) over heated 07-14-2013 Comment on above: 2 years ago when she would becomeoverheated shewould pass out and afterwards have a really bad headache. dr el give her medications for migraines, but pt wasnt had episode since. NEGATED: Highlighted row has been ruled out!Unclassified (9 sources) No known active problems 11-02-2023 Results Test Name Value Interpretation Reference Range Facility RECURRENT VAGINITIS (HTRX)on 09-07-2024 ATOPOBIUM VAGINAE 0 [facility] ATOPOBIUM VAGINAE Not detected [facility] BVAB 2,3 (BACTERIAL VAGINOSIS ASSOCIATED BACTERIA 2, 3); MOBILUNCUS SPP 0 [facility] BVAB 2,3 (BACTERIAL VAGINOSIS ASSOCIATED BACTERIA 2, 3); MOBILUNCUS SPP Not detected [facility] PRESTON ALBICANS, PARAPSILOSIS, TROPICALIS 0 [facility] PRESTON ALBICANS, PARAPSILOSIS, TROPICALIS Not detected [facility] PRESTON GLABRATA 0 [facility] PRESTON GLABRATA Not detected [facility] PRESTON KRUSEI 0 [facility] PRESTON KRUSEI Not detected [facility] CHLAMYDIA TRACHOMATIS 0 [facility] CHLAMYDIA TRACHOMATIS Not detected [facility] GARDNERELLA VAGINALIS 0 [facility] GARDNERELLA VAGINALIS Not detected [facility] MEGASPHAERA (TYPES 1, 2) 0 [facility] MEGASPHAERA (TYPES 1, 2) Not detected [facility] MYCOPLASMA GENITALIUM 0 [facility] MYCOPLASMA GENITALIUM Not detected [facility] NEISSERIA GONORRHOEAE 0 [facility] NEISSERIA GONORRHOEAE Not detected N [facility] TRICHOMONAS VAGINALIS 0 [facility] TRICHOMONAS VAGINALIS Not detected N [facility] Urinalysis macro (dipstick) panel (U)on 09-06-2024 Bilirubin, UA Negative Negative - 4(70) +++ mg/dL [facility] Blood, UA Negative Negative - 50 Jose/mcL [facility] Clarity, UA Clear [facility] Color, UA Yellow [facility] Glucose, UA Negative Negative - 1999(110) ++++ mg/dL [facility] Interpretation and review of laboratory results Abnormal [facility] Ketones, UA Negative Negative - 160(16) ++++ mg/dL [facility] Leukocytes, UA Positive Negative - 500+++ Onel/mcL [facility] Comment on above: small Nitrite, UA Negative Negative - Positive [facility] pH, UA 6 5 - 9 [facility] Protein, UA Negative Negative - 1999(20) ++++ mg/dL [facility] Spec Grav, UA 1.03 1 - 1.03 [facility] Urobilinogen, UA 0.2 0.2 - 12 mg/dL [facility] ALL CBC WITH AUTO DIFFon BASOPHILS ABSOLUTE AUTO 0 N [facility] Basophils/100 WBC (Bld) 0.2 % 0.2 - 2.0 % [facility] Eosinophils/100 WBC (Bld) 2.9 % 0.9 - 7.0 % [facility] Erythrocyte distribution width (RBC) [Ratio] 12 % 11.0 - 15.0 % [facility] Hematocrit (Bld) [Volume fraction] 39.3 % 36.0 - 48.0 % [facility] Hemoglobin (Bld) [Mass/Vol] 13.6 g/dL 12.0 - 16.0 g/dL [facility] IMMATURE GRANULOCYTES ABS AUTO 0.06 High [facility] Immature granulocytes/100 WBC (Bld) 0.7 % High 0.0 - 0.5 % [facility] Interpretation and review of laboratory results Abnormal [facility] LYMPHOCYTES ABSOLUTE AUTO 2.1 [facility] Lymphocytes/100 WBC (Bld) 25.4 % 20.5 - 60. 0 % [facility] MCH (RBC) [Entitic mass] 30.2 pg 26. 7 - 34.0 pg [facility] MCHC (RBC) [Mass/Vol] 34.6 g/dL 29.9 - 35.2 g/dL [facility] MCV (RBC) [Entitic vol] 87.3 fL 81.0 - 99.0 fL [facility] MONOCYTES ABSOLUTE AUTO 0.5 [facility] Monocytes/100 WBC (Bld) 5.8 % 1.7 - 12.0 % [facility] NEUTROPHILS ABSOLUTE AUTO 5.5 [facility] Neutrophils/100 WBC (Bld) 65 % 43.0 - 75. 0 % [facility] Platelet mean volume (Bld) [Entitic vol] 10.9 fL 9.5 - 13.5 fL [facility] EO # 0.2 [facility] PLT 151 [facility] RBC 4.5 [facility] WBC 8.4 [facility] Urinalysis macro (dipstick) panel (U)on 08-08-2024 Bilirubin, UA Negative Negative - 4(70) +++ mg/dL [facility] Blood, UA Negative Negative - 50 Jose/mcL [facility] Clarity, UA Clear [facility] Color, UA Yellow [facility] Glucose, UA Negative Negative - 1999(110) ++++ mg/dL [facility] Interpretation and review of laboratory results Abnormal [facility] Ketones, UA Negative Negative - 160(16) ++++ mg/dL [facility] Leukocytes, UA Positive Negative - 500+++ Onel/mcL [facility] Comment on above: small Nitrite, UA Negative Negative - Positive [facility] pH, UA 6 5 - 9 [facility] Protein, UA Negative Negative - 1999(20) ++++ mg/dL [facility] Spec Grav, UA 1.025 1 - 1.03 [facility] Urobilinogen, UA 0.2 0.2 - 12 mg/dL [facility] HCG ( test) Ql (U)o n 07-29-2024 Interpretation and review of laboratory results Abnormal [facility] Preg Test, Ur Positive Negative [facility] Urinalysis macro (dipstick) panel (U)on 07-29-2024 Bilirubin, UA Negative Negative - 4(70) +++ mg/dL [facility] Blood, UA Positive Negative - 50 Jose/mcL [facility] Comment on above: trace Clarity, UA Clear [facility] Color, UA Yellow [facility] Glucose, UA Negative Negative - 1999(110) ++++ mg/dL [facility] Interpretation and review of laboratory results Abnormal [facility] Ketones, UA Negative Negative - 160(16) ++++ mg/dL [facility] Leukocytes, UA Positive Negative - 500+++ Onel/mcL [facility] Comment on above: small Nitrite, UA Negative Negative - Positive [facility] pH, UA 5.5 5 - 9 [facility] Protein, UA Negative Negative - 1999(20) ++++ mg/dL [facility] Spec Grav, UA 1.03 1 - 1.03 [facility] Urobilinogen, UA 0.2 0.2 - 12 mg/dL [facility] PROGESTERONEon 07-12-2024 PROGESTERONE 53.5 ng/mL Normal [facility] Comment on above: Result Comment: Refe rence Ranges Female Follicular Phase < 1.0 Luteal Phase 2.6-21.5 Post menopausal < 0.5 1st Trimester 4.1-34.0 2nd Trimester 24.0-76.0 3rd Trimester 52.0-302.0 Performed By: #### 7 45 #### [facility] [address], [address] [place] [id number] Cryptanalyst: Alexey Boogie MD US OB TRANSVAGINALon 025 OB TRANSVAGINAL Interpreted by: Juan Chavarria Indication ======== Confirm [...] D3 21.9 mm Rt ovary Vol 7.9 cm??? Lt ovary: Visualized Lt ovary details: Normal Lt ovary D1 23.1 mm Lt ovary D2 21.6 mm Lt ovary D3 14.4 mm Lt ovary Vol 3.8 cm??? Cul de Sac / Bladder / Kidneys / Other Cul de Sac: Visualized Free fluid: No free fluid visualized Method ====== Transvaginal assessment was indicated due to increased accuracy of transvaginal evaluation for early dating. View: Sufficient Normal [facility] Choriogonadotropin.beta subu niton 06-30-2024 HCG.beta subunit Qn 6575 m[IU]/mL High <5 Un [facility] Comment on above: Order Comment: Total HCG measurement is performed using the [employer] [place] Access Immunoassay which detects intact HCG and free beta HCG subunit. This test is not indicated for use as a tumor marker. HCG testing is performed using a different test methodology at [facility] than other [facility]. Direct result comparison should only be made within the same method. Result Comment: Low- level positive HCG results can be seen in early , [...] as the source of the HCG elevation. Performed By: #### 2 1198-7 #### JOSEPH ESQUIVEL ([id number]) [facility] ([facility]) [address] [place] [address] Choriogonadotropin.beta subu niton 06-23-2024 HCG.beta subunit Qn 330 m[IU]/mL High <5 [facility] Comment on above: Order Comment: Total HCG measurement is performed using the [employer] [place] Access Immunoassay which detects intact HCG and free beta HCG subunit. This test is not indicated for use as a tumor marker. HCG testing is performed using a different test methodology at [facility] than other [facility]. Direct result comparison should only be made within the same method. Result Comment: Low- level positive HCG results can be seen in early , [...] as the source of the HCG elevation. Performed By: #### 2 1198-7 #### JOSEPH ESQUIVEL ([id number]) [facility] ([facility]) [address] [place] [address] Estradiolon 06-23-2024 E2 [Mass/Vol] 378 pg/mL Normal [facility] Comment on above: Order Comment: REF V ALUES FOLLICULAR PHASE 20-144 MID CYCLE 64-357 LUTEAL PHASE 56-214 POSTMENOPAUSE < 32 PREPUBERTY < 20 FEMALE 10-18Y 8-110 MALE 10-18Y < 20 ADULT MALE < 40 Estradiol measurement is performed using the [employer] Access Estradiol Immunoassay. Estradiol testing is performed using a different test methodology at [facility] than other [facility]. Direct result comparison should only be made within the same method. Performed By: #### 2 243-4 #### JOSEPH ESQUIVEL ([id number]) [facility] ([facility]) [address] [place] [address] Progesteroneon 06-23-2024 Progesterone [Mass/Vol] 42.6 ng/mL Normal [facility] Comment on above: Order Comment: REF V ALUES Male <0.2-0.8 Follicular Phase <0.2-1.5 Luteal Phase 7.4-15.4 Post Menopausal <0.2-0.2 1ST Trimester 12.0-84.0 2ND Trimester 10.2-58.8 3RD Trimester 46.5-160 Progesterone is performed using the [employer] Access Immunoassay. Progesterone testing is performed using a different test methodology at [facility] than other [facility]. Direct result comparison should only be made within the same method. Performed By: #### 2 839-9 #### JOSEPH ESQUIVEL ([id number]) [facility] ([facility]) [address] [place] [address] No Panel Informationon 06-13 Juan Chavarria MD 06/13/2024 11:25 AM Embryo Transfer Date/Time: 06/13/2024 11:24 AM Performed by: Juan Chavarria MD Authorized by: Juan Chavarria MD Consent: Consent obtained: Written Consent given by: Patient Procedure risks and benefits discussed: yes Patient questions answered: yes Patient agrees, verbalizes understanding, and wants to proceed: yes Educational handouts given: yes Instructions and paperwork completed: yes Procedure: Pelvic exam performed: No Cervix cleaned and prepped: Yes Speculum placed in vagina: Yes Ultrasound guidance: Yes Catheter type: Sure View العلي Uterine position: Anteverted Bladder backfilling performed: No, bladder sufficiently full Uterine visualization complete: Yes Difficulty: easy Estimated blood loss: None Post-procedure: Patient tolerated procedure well: yes Comments: Preop diagnosis: Infertility Post op diagnosis: Same Photo Mask Processor: none Depth: 7 cm Curve: anterior Distance from fundus: 11 mm Embryo stage at day of transfer: day 5 Embryo notes: 4AA PGT: Result: euploid Anesthesia: None IV Fluids: None UOP: Not recorded Specimens: None Complications: None Attending Attestation: I was physically present for orozco and critical portions performed by the fellow. I reviewed the fellow's documentation and discussed the patient with the fellow. I agree with the fellow's medical decision making as documented in the fellow's note. Juan Chavarria 06/13/24 11:24 AM [facility] Work Phone: Progesteroneon 06-13-2024 Progesterone [Mass/Vol] 45.0 ng/mL Normal U [facility] Comment on above: Order Comment: REF V ALUES Male <0.2-0.8 Follicular Phase <0.2-1.5 Luteal Phase 7.4-15.4 Post Menopausal <0.2-0.2 1ST Trimester 12.0-84.0 2ND Trimester 10.2-58.8 3RD Trimester 46.5-160 Progesterone is performed using the [employer] Access Immunoassay. Progesterone testing is performed using a different test methodology at [facility] than other [facility]. Direct result comparison should only be made within the same method. Performed By: #### 2 839-9 #### ORA MARQUES ([id number]) [facility] ([facility]) [address] [place] [address] Estradiolon 06-07-2024 E2 [Mass/Vol] 2870 pg/mL Normal [facility] Comment on above: Order Comment: REF V ALUES FOLLICULAR PHASE 20-144 MID CYCLE 64-357 LUTEAL PHASE 56-214 POSTMENOPAUSE < 32 PREPUBERTY < 20 FEMALE 10-18Y 8-110 MALE 10-18Y < 20 ADULT MALE < 40 Performed By: #### 2 243-4 #### JOSEPH ESQUIVEL ([id number]) [facility] ([facility]) [address] [place] [address] Progesteroneon 06-07-2024 Progesterone [Mass/Vol] 0.4 ng/mL Normal [facility] Comment on above: Order Comment: REF V ALUES Male <0.2-0.8 Follicular Phase <0.2-1.5 Luteal Phase 7.4-15.4 Post Menopausal <0.2-0.2 1ST Trimester 12.0-84.0 2ND Trimester 10.2-58.8 3RD Trimester 46.5-160 Progesterone is performed using the [employer] Access Immunoassay. Progesterone testing is performed using a different test methodology at [facility] than other [facility]. Direct result comparison should only be made within the same method. Result Comment: Ref Values Male <0.3- 1.2 Follicular Phase <0.3- 1.4 Luteal Phase 3.3-25.6 Mid-Luteal Phase 4.4-28.0 Postmenopausal <0.3- 0.7 Females: 1st Trimester 11.2- 90.0 2nd Trimester 25.6- 89.4 3RD Trimester 48.4-422.5 Patients receiving DHEA-S supplements may show false elevation of progesterone for results near 1.0 ng/mL. Contact laboratory at [phone] if alternative testing is needed. Performed By: #### 2 839-9 #### JOSEPH ESQUIVEL ([id number]) [facility] ([facility]) [address] [place] [address] [facility] US PELVIS LIMITED FOLLIC LES-FOLLICLE STUDIES PERFORMEDon 06-07-2024 [facility] US PELVIS LIMITED FOLLICLES-FOLLICLE STUDIES PERFORMED Follicle scan performed with follicle measurements in report. and Trilaminar appearance to the endometrium is noted. Normal [facility] Estradiolon 06-06-2024 E2 [Mass/Vol] 558 pg/mL Normal [facility] Comment on above: Order Comment: REF V ALUES FOLLICULAR PHASE 20-144 MID CYCLE 64-357 LUTEAL PHASE 56-214 POSTMENOPAUSE < 32 PREPUBERTY < 20 FEMALE 10-18Y 8-110 MALE 10-18Y < 20 ADULT MALE < 40 Performed By: #### 2 243-4 #### JOSEPH ESQUIVEL ([id number]) [facility] ([facility]) [address] [place] [id number] Follicle Diameter USon 06-06 Trilaminar appearance to the endometrium is noted. RIS SECTRA ONLY [facility] Work Phone: Radiology Study observation (narrative) [facility] Work Phone: Progesteroneon 06-06-2024 Progesterone [Mass/Vol] 0.8 ng/mL Normal [facility] Comment on above: Order Comment: REF V ALUES Male <0.2-0.8 Follicular Phase <0.2-1.5 Luteal Phase 7.4-15.4 Post Menopausal <0.2-0.2 1ST Trimester 12.0-84.0 2ND Trimester 10.2-58.8 3RD Trimester 46.5-160 Progesterone is performed using the [employer] Access Immunoassay. Progesterone testing is performed using a different test methodology at [facility] than other [facility]. Direct result comparison should only be made within the same method. Result Comment: Ref Values Male <0.3- 1.2 Follicular Phase <0.3- 1.4 Luteal Phase 3.3-25.6 Mid-Luteal Phase 4.4-28.0 Postmenopausal <0.3- 0.7 Females: 1st Trimester 11.2- 90.0 2nd Trimester 25.6- 89.4 3RD Trimester 48.4-422.5 Patients receiving DHEA-S supplements may show false elevation of progesterone for results near 1.0 ng/mL. Contact laboratory at [phone] if alternative testing is needed. Performed By: #### 2 839-9 #### JOSEPH ESQUIVEL ([id number]) [facility] ([facility]) [address] [place] [id number] [facility] US ENDOMETRIAL LINING CH ECKon 06-06-2024 [facility] US ENDOMETRIAL LINING CHECK Trilaminar appearance to the endometrium is noted. [facility] No Panel Informationon 03-22 Juan Chavarria MD 03/22/2024 9:44 AM Egg Retrieval Date/Time: 03/22/2024 9:39 AM Performed by: Juan Chavarria MD Authorized by: Donya Abernathy APRN-FOOD SANITARIAN Consent: Consent obtained: Verbal and written Consent given by: Patient Procedure risks and benefits discussed: yes Patient questions answered: yes Patient agrees, verbalizes understanding, and wants to proceed: yes Educational handouts given: yes Instructions and paperwork completed: yes Procedure: Anesthesia: MAC Pelvic exam performed: Yes Cervix cleaned and prepped: Yes Speculum placed in vagina: Yes Tenaculum applied to cervix: No Ultrasound guidance: Yes Left ovary: Follicle present Right ovary: Follicle present Pt. post-ovulatory: No Speculum type: Seda Retrieval method: transvaginal Needle inserted: Yes Ovaries aspirated: Yes Free fluid in pelvis: No Post-procedure: Patient tolerated procedure well: yes Comments: Preop diagnosis: Female infertility Post op diagnosis: Same Photo Mask Processor: Dr. Warren IV Fluids: 600 cc EBL: 5 cc UOP: Not recorded Specimen: Oocytes Complications: None Number of Oocytes right ovary: 16 Ovarian access (right): Easy Number of Oocytes left ovary: 9 Ovarian access (left): Easy Endometrial thickness: n/a Needle type: Single Additional notes: [facility] Work Phone: Lutropinon 03-21-2024 Lutropin Qn 29.3 IU/L Normal [facility] Comment on above: Result Comment: LH R eference Values Follicular Phase 1.5-10.0 Mid-Cycle 13.0-72.0 Luteal Phase 0.5-13.0 Menopause 15.0-65.0 Pre-puberty 0- 3.0 Children 0- 6.0 Adult Male 1.0- 9.0 Luteinizing Hormone is performed using the [employer] [place] Access Immunoassay. LH testing is performed using a different test methodology at [facility] than other [facility]. Direct result comparison should only be made within the same method. Performed By: #### 4 7236-5 #### SHAI Pickard ([id number]) [facility] ([facility]) [address] [place] [id number] Progesteroneon 03-21-2024 Progesterone [Mass/Vol] 4.5 ng/mL Normal [facility] Comment on above: Order Comment: HIV A g/Ab screen is performed using the Siem[employer] [place] HIV Ag/Ab Combo assay which detects the presence of HIV p24 antigen as well as antibodies to HIV-1 (Group M and O) and HIV-2. No laboratory evidence of HIV infection. If acute HIV infection is suspected, consider testing for HIV RNA by PCR (viral load). Performed By: #### 5 6888-1 #### SHAI Pickard ([id number]) [facility] ([facility]) [address] [place] [address] E2 [Mass/Vol]Ordered By: Shira Rich on 03-20-2024 REF VALUES FOLLICULAR PHASE 20-144 MID CYCLE 64-357 LUTEAL PHASE 56-214 POSTMENOPAUSE < 32 PREPUBERTY < 20 FEMALE 10-18Y 8-110 MALE 10-18Y < 20 ADULT MALE < 40 Estradiol measurement is performed using the [employer] Access Estradiol Immunoassay. Estradiol testing is performed using a different test methodology at [facility] than other [facility]. Direct result comparison should only be made within the same method. [facility] EstradiolOrdered By: Bela Rich on 03-20-2024 E2 [Mass/Vol] 4909 pg/mL [facility] Estradiolon 03-20-2024 E2 [Mass/Vol] 4909 pg/mL Normal [facility] Comment on above: Order Comment: HIV A g/Ab screen is performed using the Siem[employer] HIV Ag/Ab Combo assay which detects the presence of HIV p24 antigen as well as antibodies to HIV-1 (Group M and O) and HIV-2. No laboratory evidence of HIV infection. If acute HIV infection is suspected, consider testing for HIV RNA by PCR (viral load). Performed By: #### 5 6888-1 #### SHAI Pickard ([id number]) [facility] ([facility]) [address] [place], [place] [id number] Follicle Diameter USon 03-20 Follicle scan performed with follicle measurements in report. RIS SECTRA ONLY [facility] Work Phone: Radiology Study observation (narrative) [facility] Work Phone: Progesteroneon 03-20-2024 Progesterone [Mass/Vol] 1.3 ng/mL U [facility] Progesterone [Mass/Vol] 1.3 ng/mL Normal [facility] Comment on above: Order Comment: HIV A g/Ab screen is performed using the Siem[employer] HIV Ag/Ab Combo assay which detects the presence of HIV p24 antigen as well as antibodies to HIV-1 (Group M and O) and HIV-2. No laboratory evidence of HIV infection. If acute HIV infection is suspected, consider testing for HIV RNA by PCR (viral load). Performed By: #### 5 6888-1 #### SHAI Pickard ([id number]) [facility] ([facility]) [address] [place] [id number] Progesterone [Mass/Vol]on REF VALUES Male <0.2-0.8 Follicular Phase <0.2-1.5 Luteal Phase 7.4-15.4 Post Menopausal <0.2-0.2 1ST Trimester 12.0-84.0 2ND Trimester 10.2-58.8 3RD Trimester 46.5-160 Progesterone is performed using the [employer] Access Immunoassay. Progesterone testing is performed using a different test methodology at [facility] than other [facility]. Direct result comparison should only be made within the same method. [facility] PELVIS LIMITED FOLLIC LES-FOLLICLE STUDIES PERFORMEDon 03-20-2024 [facility] US PELVIS LIMITED FOLLICLES-FOLLICLE STUDIES PERFORMED Follicle scan performed with follicle measurements in report. Normal [facility] Estradiolon 03-19-2024 E2 [Mass/Vol] 3760 pg/mL Normal [facility] Comment on above: Order Comment: HIV A g/Ab screen is performed using the Siem[employer] HIV Ag/Ab Combo assay which detects the presence of HIV p24 antigen as well as antibodies to HIV-1 (Group M and O) and HIV-2. No laboratory evidence of HIV infection. If acute HIV infection is suspected, consider testing for HIV RNA by PCR (viral load). Performed By: #### 5 6888-1 #### SHAI Pickard ([id number]) [facility] ([facility]) [address] [place] [address] Follicle Diameter USon 03-19 Follicle scan performed with follicle measurements in report. RIS SECTRA ONLY [facility] Work Phone: Radiology Study observation (narrative) [facility] Work Phone: Progesteroneon 03-19-2024 Progesterone [Mass/Vol] 1.1 ng/mL Normal U [facility] Comment on above: Order Comment: HIV A g/Ab screen is performed using the Siem[employer] HIV Ag/Ab Combo assay which detects the presence of HIV p24 antigen as well as antibodies to HIV-1 (Group M and O) and HIV-2. No laboratory evidence of HIV infection. If acute HIV infection is suspected, consider testing for HIV RNA by PCR (viral load). Performed By: #### 5 6888-1 #### SHAI Pickard ([id number]) [facility] ([facility]) [address] [place] [address] [facility] PELVIS LIMITED FOLLIC LES-FOLLICLE STUDIES PERFORMEDon 03-19-2024 [facility] US PELVIS LIMITED FOLLICLES-FOLLICLE STUDIES PERFORMED Follicle scan performed with follicle measurements in report. Normal [facility] E2 [Mass/Vol]on 03-17-2024 REF VALUES FOLLICULAR PHASE 20-144 MID CYCLE 64-357 LUTEAL PHASE 56-214 POSTMENOPAUSE < 32 PREPUBERTY < 20 FEMALE 10-18Y 8-110 MALE 10-18Y < 20 ADULT MALE < 40 Estradiol measurement is performed using the [employer] [place] Access Estradiol Immunoassay. Estradiol testing is performed using a different test methodology at [facility] than other [facility]. Direct result comparison should only be made within the same method. [facility] Estradiolon 03-17-2024 E2 [Mass/Vol] 1462 pg/mL [facility] E2 [Mass/Vol] 1462 pg/mL Normal [facility] Comment on above: Order Comment: HIV A g/Ab screen is performed using the Siem[employer] HIV Ag/Ab Combo assay which detects the presence of HIV p24 antigen as well as antibodies to HIV-1 (Group M and O) and HIV-2. No laboratory evidence of HIV infection. If acute HIV infection is suspected, consider testing for HIV RNA by PCR (viral load). Performed By: #### 5 6888-1 #### SHAI Pickard ([id number]) [facility] ([facility]) [address] [place] [address] Follicle Diameter USon 03-17 Follicle scan performed with follicle measurements in report. Trilaminar appearance to the endometrium is noted. Physiologic free fluid is noted in the cul de sac. Notably retroverted uterus. Two small complex ovarian cysts noted, one on the left and one on the right. RIS SECTRA ONLY Radiology Study observation (narrative) [facility] Work Phone: Follicle Diameter USOrdered By: Leigh Ann Tuttle on 03-17-2024 [facility] Work Phone: Progesteroneon 03-17-2024 Progesterone [Mass/Vol] 0.6 ng/mL Normal [facility] Comment on above: Order Comment: HIV A g/Ab screen is performed using the Siem[employer] HIV Ag/Ab Combo assay which detects the presence of HIV p24 antigen as well as antibodies to HIV-1 (Group M and O) and HIV-2. No laboratory evidence of HIV infection. If acute HIV infection is suspected, consider testing for HIV RNA by PCR (viral load). Performed By: #### 5 6888-1 #### SHAI Pickard ([id number]) [facility] ([facility]) [address] [place] [address] [facility] PELVIS LIMITED FOLLIC LES-FOLLICLE STUDIES PERFORMEDon 03-17-2024 [facility] US PELVIS LIMITED FOLLICLES-FOLLICLE STUDIES PERFORMED Follicle scan performed with follicle measurements in report. Trilaminar appearance to the endometrium is noted. Physiologic free fluid is noted in the cul de sac. Notably retroverted uterus. Two small complex ovarian cysts noted, one on the left and one on the right. Normal [facility] E2 [Mass/Vol]on 03-15-2024 REF VALUES FOLLICULAR PHASE 20-144 MID CYCLE 64-357 LUTEAL PHASE 56-214 POSTMENOPAUSE < 32 PREPUBERTY < 20 FEMALE 10-18Y 8-110 MALE 10-18Y < 20 ADULT MALE < 40 Estradiol measurement is performed using the [employer] [place] Access Estradiol Immunoassay. Estradiol testing is performed using a different test methodology at [facility] than other [facility]. Direct result comparison should only be made within the same method. [facility] Estradiolon 03-15-2024 E2 [Mass/Vol] 721 pg/mL [facility] E2 [Mass/Vol] 721 pg/mL Normal [facility] Comment on above: Order Comment: REF V ALUESFOLLICULAR PHASE 20-144MID CYCLE 64-357LUTEAL PHASE 56-214POSTMENOPAUSE < 32PREPUBERTY < 20FEMALE 10-18Y 8-110MALE 10-18Y < 20ADULT MALE < 40Estradiol measurement is performed using the [employer] Access Estradiol Immunoassay. Estradiol testing is performed using a different test methodology at [facility] than other [facility]. Direct resultcomparison should only be made within the same method. Performed By: #### 1 6128-1 #### SHAI Pickard ([id number]) [facility] ([facility]) [address] [place] [address] Follicle Diameter USon 03-15 Follicle scan performed with follicle measurements in report., Trilaminar appearance to the endometrium is noted., and Free fluid is noted in the cul de sac. RIS SECTRA ONLY [facility] Work Phone: Radiology Study observation (narrative) [facility] Work Phone: [facility] US PELVIS LIMITED FOLLIC LES-FOLLICLE STUDIES PERFORMEDon 03-15-2024 [facility] US PELVIS LIMITED FOLLICLES-FOLLICLE STUDIES PERFORMED Follicle scan performed with follicle measurements in report., Trilaminar appearance to the endometrium is noted., and Free fluid is noted in the cul de sac. Normal [facility] E2 [Mass/Vol]on 03-09-2024 REF VALUES FOLLICULAR PHASE 20-144 MID CYCLE 64-357 LUTEAL PHASE 56-214 POSTMENOPAUSE < 32 PREPUBERTY < 20 FEMALE 10-18Y 8-110 MALE 10-18Y < 20 ADULT MALE < 40 Estradiol measurement is performed using the [employer] [place] Access Estradiol Immunoassay. Estradiol testing is performed using a different test methodology at [facility] than other [facility]. Direct result comparison should only be made within the same method. [facility] Estradiolon 03-09-2024 E2 [Mass/Vol] pg/mL pg/mL [facility] E2 [Mass/Vol] pg/mL Normal [facility] Comment on above: Order Comment: REF V ALUESFOLLICULAR PHASE 20-144MID CYCLE 64-357LUTEAL PHASE 56-214POSTMENOPAUSE < 32PREPUBERTY < 20FEMALE 10-18Y 8-110MALE 10-18Y < 20ADULT MALE < 40Estradiol measurement is performed using the [employer] [place] Access Estradiol Immunoassay. Estradiol testing is performed using a different test methodology at [facility] than other [facility]. Direct resultcomparison should only be made within the same method. Performed By: #### 1 6128-1 #### SHAI Pickard ([id number]) [facility] ([facility]) [address] [place] [address] Follicle Diameter USon 03-09 Follicle scan performed with follicle measurements in report., Trilaminar appearance to the endometrium is noted., and Free fluid is noted in the cul de sac. RIS SECTRA ONLY Radiology Study observation (narrative) [facility] Work Phone: Follicle Diameter USOrdered By: Alicia Morgan on 03-09-2024 [facility] [facility] Work Phone: Hematocrit Auto (Bld) [Volum e fraction]on 03-09-2024 Hematocrit (Bld) [Volume fraction] 43.2 % 36.0 - 46.0 % [facility] Interpretation and review of laboratory results Normal [facility] Hematocrit (Bld) [Volume fraction] 43.2 % Normal 36.0-46.0 [facility] Comment on above: Performed By: #### 1 6128-1 #### SHAI Pickard ([id number]) [facility] ([facility]) [address] [place] [address] KELSY US PELVIS LIMITED FOLLIC LES-FOLLICLE STUDIES PERFORMEDon 03-09-2024 KELSY US PELVIS LIMITED FOLLICLES-FOLLICLE STUDIES PERFORMED Follicle scan performed with follicle measurements in report., Trilaminar appearance to the endometrium is noted., and Free fluid is noted in the cul de sac. Normal [facility] No Panel Informationon 02-22 Juan Chavarria MD 02/23/2024 9:22 AM Egg Retrieval Date/Time: 02/23/2024 9:21 AM Performed by: Juan Chavarria MD Authorized by: Beth Warren MD Consent: Consent obtained: Verbal and written Consent given by: Patient Procedure risks and benefits discussed: yes Patient questions answered: yes Patient agrees, verbalizes understanding, and wants to proceed: yes Educational handouts given: yes Instructions and paperwork completed: yes Procedure: Anesthesia: MAC Pelvic exam performed: Yes Cervix cleaned and prepped: Yes Speculum placed in vagina: Yes Tenaculum applied to cervix: No Ultrasound guidance: Yes Left ovary: Follicle present Right ovary: Follicle present Pt. post-ovulatory: No Speculum type: Seda Retrieval method: transvaginal Needle inserted: Yes Ovaries aspirated: Yes Free fluid in pelvis: No Post-procedure: Patient tolerated procedure well: yes Comments: Preop diagnosis: Female infertility Post op diagnosis: Same Photo Mask Processor: none IV Fluids: 500 cc EBL: 5 cc UOP: Not recorded Specimen: Oocytes Complications: None Number of Oocytes right ovary: 17 Ovarian acc ss (right): Easy Number of Oocytes left ovary: 13 Ovarian access (left): Easy Endometrial thickness: n/a Needle type: Single Additional notes: KELSY LAB RIS [facility] Work Phone: Lutropinon 02-22-2024 Lutropin Qn 35.3 IU/L Normal [facility] Comment on above: Result Comment: LH R eference Values Follicular Phase 1.5-10.0 Mid-Cycle 13.0-72.0 Luteal Phase 0.5-13.0 Menopause 15.0-65.0 Pre-puberty 0- 3.0 Children 0- 6.0 Adult Male 1.0- 9.0 Luteinizing Hormone is performed using the [employer] Access Immunoassay. LH testing is performed using a different test methodology at [facility] than other [facility]. Direct result comparison should only be made within the same method. Performed By: #### 1 6128-1 #### SHAI Pickard ([id number]) [facility] ([facility]) [address] [place] [address] Progesteroneon 02-22-2024 Progesterone [Mass/Vol] 5.0 ng/mL Normal [facility] Comment on above: Order Comment: REF V ALUESMale <0.2-0.8Follicular Phase <0.2-1.5Luteal Phase 7.4-15.4Post Menopausal <0.2-0.21ST Trimester 12.0-84.02ND Trimester 10.2-58.83RD Trimester 46.5-160Progesterone is performed using the [employer] Access Immunoassay.Progesterone testing is performed using a different test methodology at [facility] than other [facility]. Direct result comparison should only be made within the same method. Performed By: #### 1 6128-1 #### SHAI Pickard ([id number]) [facility] ([facility]) [address] [place] [address] E2 [Mass/Vol]Ordered By: Christi Infante on 02-21-2024 REF VALUES FOLLICULAR PHASE 20-144 MID CYCLE 64-357 LUTEAL PHASE 56-214 POSTMENOPAUSE < 32 PREPUBERTY < 20 FEMALE 10-18Y 8-110 MALE 10-18Y < 20 ADULT MALE < 40 Estradiol measurement is performed using the [employer] Access Estradiol Immunoassay. Estradiol testing is performed using a different test methodology at [facility] than other [facility]. Direct result comparison should only be made within the same method. [facility] EstradiolOrdered By: Janet Ritchie on 02-21-2024 E2 [Mass/Vol] 5153 pg/mL [facility] Estradiolon 02-21-2024 E2 [Mass/Vol] 5153 pg/mL Normal [facility] Comment on above: Order Comment: REF V ALUESFOLLICULAR PHASE 20-144MID CYCLE 64-357LUTEAL PHASE 56-214POSTMENOPAUSE < 32PREPUBERTY < 20FEMALE 10-18Y 8-110MALE 10-18Y < 20ADULT MALE < 40Estradiol measurement is performed using the [employer] Access Estradiol Immunoassay. Estradiol testing is performed using a different test methodology at [facility] than other [facility]. Direct resultcomparison should only be made within the same method. Performed By: #### 1 6128-1 #### SHAI Pickard ([id number]) [facility] ([facility]) [address] [place] [address] Follicle Diameter USon 02-20 Follicle scan performed with follicle measurements in report. RIS SECTRA ONLY Radiology Study observation (narrative) [facility] Work Phone: Follicle Diameter USOrdered By: Juan Chavarria on 02-21-2024 [facility] Work Phone: Luteinizing Hormone (LH)on Lutropin Qn 0.9 m[IU]/mL IU/L [facility] Comment on above: LH Reference Values Follicular Phase 1.5-10.0 Mid-Cycle 13.0-72.0 Luteal Phase 0.5-13.0 Menopause 15.0-65.0 Pre-puberty 0- 3.0 Children 0- 6.0 Adult Male 1.0- 9.0 Luteinizing Hormone is performed using the [employer] Access Immunoassay. LH testing is performed using a different test methodology at [facility] than other [facility]. Direct result comparison should only be made within the same method. Lutropinon 02-21-2024 Lutropin Qn 0.9 IU/L Normal [facility] Comment on above: Result Comment: LH R eference Values Follicular Phase 1.5-10.0 Mid-Cycle 13.0-72.0 Luteal Phase 0.5-13.0 Menopause 15.0-65.0 Pre-puberty 0- 3.0 Children 0- 6.0 Adult Male 1.0- 9.0 Luteinizing Hormone is performed using the Faith Koch[employer] Access Immunoassay. LH testing is performed using a different test methodology at [facility] than other [facility]. Direct result comparison should only be made within the same method. Performed By: #### 1 6128-1 #### SHAI Pickard ([id number]) [facility] ([facility]) [address] [place] [address] Lutropin Qnon 02-21-2024 [facility] Progesteroneon 02-21-2024 Progesterone [Mass/Vol] 1.3 ng/mL U [facility] Progesterone [Mass/Vol] 1.3 ng/mL Normal [facility] Comment on above: Order Comment: REF V ALUESMale <0.2-0.8Follicular Phase <0.2-1.5Luteal Phase 7.4-15.4Post Menopausal <0.2-0.21ST Trimester 12.0-84.02ND Trimester 10.2-58.83RD Trimester 46.5-160Progesterone is performed using the [employer] Access Immunoassay.Progesterone testing is performed using a different test methodology at [facility] than other [facility]. Direct result comparison should only be made within the same method. Performed By: #### 5 196-1 #### SHAI Pickard ([id number]) [facility] ([facility]) [address] [place] [address] Progesterone [Mass/Vol]on REF VALUES Male <0.2-0.8 Follicular Phase <0.2-1.5 Luteal Phase 7.4-15.4 Post Menopausal <0.2-0.2 1ST Trimester 12.0-84.0 2ND Trimester 10.2-58.8 3RD Trimester 46.5-160 Progesterone is performed using the Faith [employer] Access Immunoassay. Progesterone testing is performed using a different test methodology at [facility] than other [facility]. Direct result comparison should only be made within the same method. [facility] KELSY US PELVIS LIMITED FOLLIC LES-FOLLICLE STUDIES PERFORMEDon 02-21-2024 KELSY US PELVIS LIMITED FOLLICLES-FOLLICLE STUDIES PERFORMED Follicle scan performed with follicle measurements in report. Normal [facility] Estradiolon 02-20-2024 E2 [Mass/Vol] 3718 pg/mL Normal [facility] Comment on above: Order Comment: REF V ALUESFOLLICULAR PHASE 20-144MID CYCLE 64-357LUTEAL PHASE 56-214POSTMENOPAUSE < 32PREPUBERTY < 20FEMALE 10-18Y 8-110MALE 10-18Y < 20ADULT MALE < 40Estradiol measurement is performed using the Faith [employer] Access Estradiol Immunoassay. Estradiol testing is performed using a different test methodology at [facility] than other [facility]. Direct resultcomparison should only be made within the same method. Performed By: #### 5 196-1 #### SHAI Pickard ([id number]) [facility] ([facility]) [address] [place] [address] Progesteroneon 02-20-2024 Progesterone [Mass/Vol] 1.4 ng/mL Normal U [facility] Comment on above: Order Comment: REF V ALUESMale <0.2-0.8Follicular Phase <0.2-1.5Luteal Phase 7.4-15.4Post Menopausal <0.2-0.21ST Trimester 12.0-84.02ND Trimester 10.2-58.83RD Trimester 46.5-160Progesterone is performed using the [employer] [place] Access Immunoassay.Progesterone testing is performed using a different test methodology at [facility] than other [facility]. Direct result comparison should only be made within the same method. Performed By: #### 5 196-1 #### SHAI Pickard ([id number]) [facility] ([facility]) [address] [place] [address] KELSY US PELVIS LIMITED FOLLIC LES-FOLLICLE STUDIES PERFORMEDon 02-20-2024 KELSY US PELVIS LIMITED FOLLICLES-FOLLICLE STUDIES PERFORMED Follicle scan performed with follicle measurements in report. Normal [facility] E2 [Mass/Vol]on 02-18-2024 REF VALUES FOLLICULAR PHASE 20-144 MID CYCLE 64-357 LUTEAL PHASE 56-214 POSTMENOPAUSE < 32 PREPUBERTY < 20 FEMALE 10-18Y 8-110 MALE 10-18Y < 20 ADULT MALE < 40 Estradiol measurement is performed using the [employer] [place] Access Estradiol Immunoassay. Estradiol testing is performed using a different test methodology at [facility] than other [facility]. Direct result comparison should only be made within the same method. [facility] Estradiolon 02-18-2024 E2 [Mass/Vol] 1472 pg/mL [facility] E2 [Mass/Vol] 1472 pg/mL Normal [facility] Comment on above: Order Comment: REF V ALUESFOLLICULAR PHASE 20-144MID CYCLE 64-357LUTEAL PHASE 56-214POSTMENOPAUSE < 32PREPUBERTY < 20FEMALE 10-18Y 8-110MALE 10-18Y < 20ADULT MALE < 40Estradiol measurement is performed using the [employer] [place] Access Estradiol Immunoassay. Estradiol testing is performed using a different test methodology at [facility] than other [facility]. Direct resultcomparison should only be made within the same method. Performed By: #### 5 196-1 #### SHAI Pickard ([id number]) [facility] ([facility]) [address] [place] [address] Follicle Diameter USon 02-17 Follicle scan performed with follicle measurements in report. Trilaminar appearance to the endometrium is noted. Free fluid is noted in the right paraovarian space. Notably retroverted uterus. RIS SECTRA ONLY Radiology Study observation (narrative) [facility] Work Phone: Follicle Diameter USOrdered By: Leigh Ann Tuttle on 02-18-2024 [facility] Work Phone: KELSY US PELVIS LIMITED FOLLIC LES-FOLLICLE STUDIES PERFORMEDon 02-18-2024 KELSY US PELVIS LIMITED FOLLICLES-FOLLICLE STUDIES PERFORMED Follicle scan performed with follicle measurements in report. Trilaminar appearance to the endometrium is noted. Free fluid is noted in the right paraovarian space. Notably retroverted uterus. Normal [facility] E2 [Mass/Vol]on 02-16-2024 REF VALUES FOLLICULAR PHASE 20-144 MID CYCLE 64-357 LUTEAL PHASE 56-214 POSTMENOPAUSE < 32 PREPUBERTY < 20 FEMALE 10-18Y 8-110 MALE 10-18Y < 20 ADULT MALE < 40 Estradiol measurement is performed using the [employer] [place] Access Estradiol Immunoassay. Estradiol testing is performed using a different test methodology at [facility] than other [facility]. Direct result comparison should only be made within the same method. [facility] Estradiolon 02-16-2024 E2 [Mass/Vol] 639 pg/mL [facility] E2 [Mass/Vol] 639 pg/mL Normal [facility] Comment on above: Order Comment: REF V ALUESFOLLICULAR PHASE 20-144MID CYCLE 64-357LUTEAL PHASE 56-214POSTMENOPAUSE < 32PREPUBERTY < 20FEMALE 10-18Y 8-110MALE 10-18Y < 20ADULT MALE < 40Estradiol measurement is performed using the [employer] [place] Access Estradiol Immunoassay. Estradiol testing is performed using a different test methodology at [facility] than other [facility]. Direct resultcomparison should only be made within the same method. Performed By: #### 5 196-1 #### SHAI Pickard ([id number]) [facility] ([facility]) [address] [place] [address] KELSY US PELVIS LIMITED FOLLIC LES-FOLLICLE STUDIES PERFORMEDon 02-16-2024 KELSY US PELVIS LIMITED FOLLICLES-FOLLICLE STUDIES PERFORMED Follicle scan performed with follicle measurements in report. and Trilaminar appearance to the endometrium is noted. Normal [facility] E2 [Mass/Vol]on 02-09-2024 REF VALUES FOLLICULAR PHASE 20-144 MID CYCLE 64-357 LUTEAL PHASE 56-214 POSTMENOPAUSE < 32 PREPUBERTY < 20 FEMALE 10-18Y 8-110 MALE 10-18Y < 20 ADULT MALE < 40 Estradiol measurement is performed using the [employer] Access Estradiol Immunoassay. Estradiol testing is performed using a different test methodology at [facility] than other [facility]. Direct result comparison should only be made within the same method. [facility] Estradiolon 02-09-2024 E2 [Mass/Vol] pg/mL pg/mL [facility] E2 [Mass/Vol] pg/mL Normal [facility] Comment on above: Order Comment: REF V ALUESFOLLICULAR PHASE 20-144MID CYCLE 64-357LUTEAL PHASE 56-214POSTMENOPAUSE < 32PREPUBERTY < 20FEMALE 10-18Y 8-110MALE 10-18Y < 20ADULT MALE < 40Estradiol measurement is performed using the [employer] [place] Access Estradiol Immunoassay. Estradiol testing is performed using a different test methodology at [facility] than other [facility]. Direct resultcomparison should only be made within the same method. Performed By: #### 5 196-1 #### SHAI Pickard ([id number]) [facility] ([facility]) [address] [place] [address] Follicle Diameter USon 02-08 Follicle scan performed with follicle measurements in report. [facility] Radiology Study observation (narrative) [facility] Work Phone: Follicle Diameter USOrdered By: Juan Chavarria on 02-09-2024 [facility] Work Phone: Hematocrit Auto (Bld) [Volum e fraction]on 02-09-2024 Hematocrit (Bld) [Volume fraction] 42.9 % 36.0 - 46.0 % [facility] Interpretation and review of laboratory results Normal [facility] Hematocrit (Bld) [Volume fraction] 42.9 % Normal 36.0-46.0 [facility] Comment on above: Performed By: #### 4 544-3 #### JOSEPH ESQUIVEL ([id number]) [facility] ([facility]) [address] [place] [address] KELSY US PELVIS LIMITED FOLLIC LES-FOLLICLE STUDIES PERFORMEDon 02-09-2024 KELSY US PELVIS LIMITED FOLLICLES-FOLLICLE STUDIES PERFORMED Follicle scan performed with follicle measurements in report. Normal [facility] HCG ( test) Ql (U)o n 01-28-2024 Interpretation and review of laboratory results Normal [facility] Work Phone: Preg Test, Ur Negative Negative [facility] Work Phone: [facility] Work Phone: No Panel Informationon 01-27 Leigh Ann Tuttle MD 01/28/2024 9:32 AM Polypectomy Date/Time: 01/28/2024 9:29 AM Performed by: Leigh Ann Tuttle MD Authorized by: Juan Chavarria MD Consent: Consent obtained: Written Consent given by: Patient Risks discussed: Bleeding, infection and pain Pre-procedure details: Skin preparation: Povidone-iodine Sedation: Sedation type: Moderate sedation Anesthesia: Anesthesia method: None Procedure specific details: Patient was taken to the OR, placed on the operative table in dorsolithotomy position. Patient was prepped and draped in the usual fashion. A sterile speculum was placed into the patient's vagina and cervix was grasped anteriorly with a single-toothed tenaculum. The Aveta hysteroscope was inserted through the cervix, into the uterine cavity where the polyp was seen on the posterior wall of the lower uterine segment. The hysteroscope was used to remove the polyp completely. Inspection, at this point, of endometrial cavity revealed that both ostia were able to be seen on panorama. There was no evidence at any point of uterine perforation. The hysteroscope was removed and good hemostasis was noted. All equipment was removed from the vaginal vault. Patient tolerated the procedure well and was taken to the PACU in stable condition. Signature: Leigh Ann Tuttle MD Date: January 28, 2024 Time: 9:30 AM Post-procedure details: Procedure completion: Tolerated well, no immediate complications [facility] LAB RIS [facility] Work Phone: Surgical pathology studyon 0 01-28-2024 Surgical pathology study Pathology report.total SEE COMMENT Surgical Pathology Case: [id number] Authorizing Provider: Leigh Ann Tuttle MD Collected: 01/28/2024 1027 Ordering Location: [facility] Received: 01/28/2024 1027 [place] Pathologist: Yamila Leo MD Specimen: ENDOMETRIUM POLYPECTOMY Path report.final diagnosis SEE COMMENT A. ENDOMETRIUM, POLYPECTOMY: -- Minute cytologically normal glandular epithelium, insufficient for diagnostic evaluation Laboratory comment By the signature on this report, the individual or group listed as making the Final Interpretation/Diag peter certifies that they have reviewed this case. Path report.relevant Hx endometrial polyps Path report.gross observation SEE COMMENT Received in formalin in a gauze sock, labeled with the patient's name, hospital number, are multiple irregular fragments of toth, rubbery tissue aggregating to 0.1 x 0.1 x 0.1 cm. The specimen may not survive processing. The specimen is entirely submitted in 1 cassette. JEK/SBS [facility] IGP,APTIMA HPV,AGE GDLNon AGE GDLN ACOG TESTING Note . [facility] Comment on above: TESTS RESULT FLAG UN ITS REF RANGE LAB Clinician Provided Cytology Information Source.............Cervix;Endocervix No. of containers..01 ThinPrep Vial Age Algo ACOG Telma... - 01 FLAG LEGEND: L-Low Normal,H-High Normal,LL-Alert Low,HH-Alert High <-Panic Low,>-Panic High,A-Abnormal,AA-Critical Abnormal Performed at: 01 =G [facility] [address] Nidhi Fay MD, IGP, RFX APTIMA HPV ASCU Note . [facility] Comment on above: TESTS RESULT FLAG U NITS REF RANGE LAB DIAGNOSIS: 02 NEGATIVE FOR INTRAEPITHELIAL LESION OR MALIGNANCY. Specimen adequacy: 02 Satisfactory for evaluation. Endocervical and/or squamous metaplastic cells (endocervical component) are present. Performed by: 02 Isac Masters Freight Manager (ASC) . 02 Note: Note 02 The Pap smear is a screening test designed to aid in the detection of premalignant and malignant conditions of the uterine cervix. It is not a diagnostic procedure and should not be used as the sole means of detecting cervical cancer. Both false-positive and false-negative reports do occur. Test Methodology: Note 02 This liquid based ThinPrep(R) pap test was screened with the use of an image guided system. . 02 The HPV DNA reflex criteria were not met with this specimen result therefore, no HPV testing was performed. FLAG LEGEND: L-Low Normal,H-High Normal,LL-Alert Low,HH-Alert High <-Panic Low,>-Panic High,A-Abnormal,AA-Critical Abnormal Performed at: [address] [address] Nidhi Fay MD, Performed at: = - [facility] [address] [id number] Wheel Truer: Nidhi Fay MD, Phone: [phone] Performed at: [facility] [address] [place] [id number] Wheel Truer: Nidhi Fay MD, Phone: [phone] BRUSH-SPATULA CERVIX ENDOCERVIX [facility] Blood type and Indirect anti body screen panel (Bld)on 2023 ABO group Nom (Bld) O [facility] Blood group antibody screen Ql Negative [facility] D Ag Ql (Bld) Positive [facility] ABO group Nom (Bld) O Normal [facility] Comment on above: Performed By: #### 3 4532-2 #### JOSEPH ESQUIVEL ([id number]) [facility] ([facility]) [address] Blood group antibody screen Ql Negative [facility] Comment on above: Performed By: #### 3 4532-2 #### JOSEPH ESQUIVEL ([id number]) [facility] ([facility]) [address] D Ag Ql (Bld) Positive [facility] Comment on above: Performed By: #### 3 4532-2 #### JOSEPH ESQUIVEL ([id number]) [facility] ([facility]) [address] C. trachomatis and N. gonorr hoeae DNA EDELMIRA+probe Nom (Unsp spec)on 2023 C. trachomatis rRNA EDELMIRA+probe Ql (Unsp spec) Negative Normal Negative [facility] Comment on above: Order Comment: The [...] By: #### 3 6903-3 #### SHAI Pickard ([id number]) [facility] ([facility]) [address] [place] [address] N. gonorrhoeae DNA Probe+sig amp Ql (Unsp spec) Negative Normal Negative [facility] Comment on above: Order Comment: The A [...] By: #### 3 6903-3 #### SHAI Pickard ([id number]) [facility] ([facility]) [address] [place] [address] HIV 1+2 Ab+HIV1 p24 Agon HIV 1+2 Ab+HIV1 p24 Ag IA Ql Non-Reactive Normal Nonreactive [facility] Comment on above: Order Comment: HIV A g/Ab screen is performed using the [employer] HIV Ag/Ab Combo assay which detects the presence of HIV p24 antigen as well as antibodies to HIV-1 (Group M and O) and HIV-2. No laboratory evidence of HIV infection. If acute HIV infection is suspected, consider testing for HIV RNA by PCR (viral load). Performed By: #### 5 6888-1 #### SHAI Pickard ([id number]) [facility] ([facility]) [address] [place], [place] [id number] Hepatitis B virus surface Ag on 2023 HBV surface Ag IA Ql Non-Reactive Normal Nonreactive [facility] Comment on above: Result Comment: Biot in interference may cause falsely decreased results. Patients taking a Biotin dose of up to 5 mg/day should refrain from taking Biotin for 24 hours before sample collection. Providers may contact their local laboratory for further information. Performed By: #### 5 196-1 #### SHAI Pickard ([id number]) [facility] ([facility]) [address] [place], [place] [id number] Hepatitis C virus Abon 12-10 HCV Ab Ql (S) Non-Reactive Normal Nonreactive [facility] Comment on above: Result Comment: Resu lts from patients taking biotin supplements or receiving high-dose biotin therapy should be interpreted with caution due to possible interference with this test. Providers may contact their local laboratory for further information. Performed By: #### 1 6128-1 #### SHAI Pickard ([id number]) [facility] [facility] [address] [place], [place] [id number] Rubella virus IgG IA Qnon Rubella virus IgG IA Ql Positive Normal Negative U [facility] Comment on above: Order Comment: NEGAT DEZ: [...] By: #### 5 334-8 #### SHAI Pickard ([id number]) [facility] ([facility]) [address] [place], [place] [id number] Rubella virus IgG Qn (S) 1.2 IA Normal <=0.7 IA [facility] Comment on above: Order Comment: NEGAT DEZ: [...] By: #### 5 334-8 #### SHAI Pickard ([id number]) [facility] ([facility]) [address] [place] [id number] Treponema pallidum Ab.IgG+Ig Mon 2023 T. pallidum IgG+IgM IA Ql (S) Non-Reactive Normal Nonreactive [facility] Comment on above: Result Comment: No s ignificant level of Treponema pallidum antibody detected. Repeat testing in 2 to 4 weeks may be considered if early infection or incubating syphilis infection is suspected. Performed By: #### 4 7236-5 #### SHAI Pickard ([id number]) [facility] ([facility]) [address] [place], [place] [id number] VZV IgG IA Ql (S)on 12-11-19 24 VARICELLA ZOSTER IGG INDEX 5.6 IA High <=0.8 [facility] Comment on above: Order Comment: NEGAT DEZ: [...] By: #### 1 5410-4 #### SHAI Pickard ([id number]) [facility] ([facility]) [address] [place] [address] Varicella zoster virus Ab.Ig Biju 2023 VZV IgG IA Ql (S) Positive Abnormal Negative [facility] Comment on above: Order Comment: NEGAT [...] By: #### 1 5410-4 #### SHAI Pickard ([id number]) [facility] ([facility]) [address] [place] [address] Ambulatory Visit Summaryon 0 10-02-2023 Ambulatory Visit Summary SYDNEY ROMERO :1995 Visit Date:10/02/2023 Ambulatory Visit Instructions Your [...] knee anterior cruciate ligament allograft reconstruction with rcnd-wjalls-erib, debridment medial meniscus tear, patellofemoral chondroplasty-Grade I-II (07/28/2013), Tonsillectomy, tubes in the ears. Discharge Vitals Temperature (Oral) 36.8 ?C Heart Rate (Peripheral) 65 Blood Pressure 118/66 Height 162 cm Height 64 in Weight 76.7 kg Weight 168.74 lb BMI 29.23 What to do next Scheduled Follow-Up Appointments Thursday 7:20 AM EDT With: Princess Dumont Where: [facility] Normal [facility] Family Medicine Office/Clini c Noteon 10-02-2023 [...] PHQ9 Score: 2 History of Present Illness Sydney Romero is a 27-year-old female who is here [...] lot of blood work ordered by her DIRECTOR OF [employer] and we are going to go over [...] mg once day. She has been taking esbv-rsc-lmjudsk magnesium at night since initiating Topamax. Weight management. The patient expresses a desire to lose weight and re-initiate her Adipex. She has previously tried Aryan sszk-jue-trwevyd but found it ineffective. 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 She is agreeable trying vitamin [...] with me in (more content not included)... Normal [facility] Comment on above: Result Comment: Elec tronically Signed By: Princess Dumont\.br\Date and Time Signed: 10/02/23 16:44 EDT\.br\Electronically Co-Signed By: Raj Chu\.br\Date and Time Co-Signed: 10/02/23 15:48 EDT Lab Reportson 10-02-2023 Lab Reports [id number] 02#[id number] [facility] Patient Educationon 10-02-19 Patient Education BMI [...] numbers. This can be done either in [place] (U.S[place] or metric measurements. Note that charts and online BMI calculators are available to help you find your BMI quickly and easily without having to do these calculations yourself. To calculate your BMI in [place] ([place] measurements: 1. Measure your weight in [...] for Disease Control and Prevention: www.cdc.gov ? [place] [employer]: www.heart.org ? National Heart, Lung, and Blood [place]: www.nhlbi.nih.gov Summary ? Body mass index (BMI) is a number that is calculated from a person's weight and height. ? BMI may help estimate how much of a person's weight is composed of fat. BMI can help identify those who may be at higher risk for certain medical problems. ? BMI can be measured using [place]ian measurements or metric measurements. ? BMI charts are used to identify whether you are underweight, normal weight, overweight, or obese. This information is not intended to replace advice given to you by your health care provider. Make sure you discuss any questions you have with your health care provider. Document Revised: 01/11/2020 Document Reviewed: 11/18/2019 [employer] Patient Education ? 2022 [employer]ase. Dermatology Eczema Eczema refers to a group [...] symptoms? S (more content not included)... Normal [facility] Transfer Inon 09-02-2023 Transfer In [id number] 2#[id number] Normal [facility] Family Medicine Office/Clini c Noteon 08-29-2023 Family Medicine Office/Clinic Note Chief Complaint 1 month follow up-Headaches HPI Staff Reason for visit: Follow up for headaches Note: Patient states her headaches have not changed. She has them 3 times a week mainly located in the frontal area. Patient would like to discuss Adipex/weight loss History of Present Illness Sydney Romero is a 27-year-old female who presents for [...] and encouraged her to go see her DIRECTOR OF [employer]. The patient was overweight with an elevated BMI. Her laboratories I ordered were not performed, and she did not do the x-ray that I ordered either. She presents for headaches again. Cervicalgia and persistent headaches. The patient underwent cervical x-ray in 02/20/2023 in [place], the day after her last visit on [...] in 06/2023 or 07/2023 and done at [place]. She is uncertain if cholesterol levels were checked. Her bowel movements and urination are normal. She and her switched clinics where she is the patient for an IVF and are waiting for an appointment within the next 2 months. 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 Ibuprofen every 6 to 8 hours. Tylenol [...] appearing. EN (more content not included)... Normal [facility] Comment on above: Result Comment: Elec tronically Signed By: Princess Dumont\.br\Date and Time Signed: 08/29/23 15:46 EDT\.br\Electronically Co-Signed By: Ryan Kaapdia\.rabia\Date and Time Co-Signed: 08/28/23 11:38 EDT Patient [...] numbers. This can be done either in [place] (U.S[place] or metric measurements. Note that charts and online BMI calculators are available to help you find your BMI quickly and easily without having to do these calculations yourself. To calculate your BMI in [place] ([place] measurements: 1. Measure your weight in [...] for Disease Control and Prevention: www.cdc.gov ? [place] [employer] Heart [employer]: www.heart.org ? National Heart, Lung, and Blood [place]: www.nhlbi.nih.gov Summary ? Body mass index (BMI) is a number that is calculated from a person's weight and height. ? BMI may help estimate how much of a person's weight is composed of fat. BMI can help identify those who may be at higher risk for certain medical problems. ? BMI can be measured using [place]ian measurements or metric measurements. ? BMI charts are used to identify whether you are underweight, normal weight, overweight, or obese. This information is not intended to replace advice given to you by your health care provider. Make sure you discuss any questions you have with your health care provider. Document Revised: 01/11/2020 Document Reviewed: 11/18/2019 [employer] Patient Education ? 2022 [employer] Endocrinology Carbohydrate Counting for Diabetes Mellitus, [...] contain carbohydra (more content not included)... Normal [facility] DHEA SERUMon 07-31-2022 Dehydroepiandrosterone (DHEA) 429 ng/dL Normal 31-701 [facility] Comment on above: Performed By: #### D GEORGIEA. #### [facility] [address] [address] [address] Meghna Alas ANTI-MULLERIAN HORMONEon Anti-Mullerian Hormone (AMH) 2.01 ng/mL Normal [facility] Comment on above: Result Comment: For assays employing antibodies, the possibility exists for interference by heterophile antibodies in the samples.1 1.Ramon Calderon Interferences in Immunoassays - still a threat. Clin. Chem. 2000; 46: 6230-6065. This test was developed and its performance characteristics determined by [employer]. It has not been cleared or approved by the Food and Drug Administration. Reference Range: Females 20 - 25y: 1.23 - 11.51 Median 4.70 AMH concentrations of >= 1.06 ng/mL is correlated with a better response to ovarian stimulation, produced more retrievable oocytes and higher odds of live according to Gleicher et al. Fertility and Sterility. 2010: 94:3059-1089. The current AMH test method correlates with [...] tumor. Performed By: #### A JOSE #### [facility] [address] [address] [address] Meghna Alas PAP ACOG PANEL 2: 21 to 29on 07-29-2022 . . Normal [facility] Comment on above: Performed By: #### 4 [id number] ####[facility] [address] [place], [place] [address]DrBetito Alas Age Gdln ACOG Testing [facility] Comment on above: Performed By: #### 4 [id number] ####[facility] [address] [place], [place] [address]DrBetito Alas DIAGNOSIS: Comment [facility] Comment on above: Result Comment: NEGA TIVE FOR INTRAEPITHELIAL LESION OR MALIGNANCY. Performed By: #### 4 [id number] ####[facility] [address] [place], [place] [address]DrBetito Alas Methodology: Comment [facility] Comment on above: Result Comment: This liquid based ThinPrep(R) pap test was screened with the use of an image guided system. Performed By: #### 4 [id number] ####[facility] [address] [place], [place] [address]DrBetito Alas Note: Comment [facility] Comment on above: Result Comment: The Pap smear is a screening test designed to aid in the detection of premalignant and malignant conditions of the uterine cervix. It is not a diagnostic procedure and should not be used as the sole means of detecting cervical cancer. Both false-positive and false-negative reports do occur. . Performed By: #### 4 [id number] ####[facility] [address] [place], [place] [address]DrBetito Alas Performed by: Comment Normal [facility] Comment on above: Result Comment: Antonella Villarreal, Supervisory Freight Manager (ASCP) Performed By: #### 4 [id number] ####[facility] [address] [place], [place] [address]DrBetito Alas Reflex Criteria: Comment [facility] Comment on above: Result Comment: The HPV DNA reflex criteria were not met with this specimen result therefore, no HPV testing was performed. . Performed By: #### 4 [id number] ####[facility] [address] [place], [place] [address]Dr. Meghna Alas Specimen adequacy: Comment Normal [facility] Comment on above: Result Comment: Sati sfactory for evaluation. Endocervical and/or squamous metaplastic cells (endocervical component) are present. Performed By: #### 4 [id number] ####[facility] [address] [place], [place] [address]XdDr. Meghna Alas DHEA-SULFATEon 07-27-2022 DHEA-Sulfate 195.0 ug/dL Normal 110.0-431.7 [facility] Comment on above: Performed By: #### D HEASUL #### [facility] [id number] Meghna Alas FSHon 07-27-2022 FSH 11.4 mIU/mL Normal [facility] Comment on above: Result Comment: Adul t Female: Follicular phase 3.5 - 12.5 Ovulation phase 4.7 - 21.5 Luteal phase 1.7 - 7.7 Postmenopausal 25.8 - 134.8 Performed By: #### L BCFS #### [facility] [address] [address] [address] Meghna Alas LUTEINIZING HORMONE (LH)on 0 07-27-2022 LH 61.8 mIU/mL Normal [facility] Comment on above: Result Comment: Adul t Female: Follicular phase 2.4 - 12.6 Ovulation phase 14.0 - 95.6 Luteal phase 1.0 - 11.4 Postmenopausal 7.7 - 58.5 Performed By: #### L BCL #### [facility] [address] [address] [address] Meghna Alas US PELVIS AND TRANSVAGon [...] by: RACQUEL UNLU Date: 2022-07-27 08:10 Normal [facility] CBC AUTO DIFFon 07-26-2022 BASO # 0.1 103/ul Normal 0.0-0.1 [facility] Comment on above: Performed By: #### C BC #### [facility] [address] [place] [address] Dr. Meghna Alas Basophils/100 WBC (Bld) 0.8 % Normal 0.2-2.0 [facility] Comment on above: Performed By: #### C BC #### [facility] [address] [place] [address] Dr. Meghna Alas EO # 0.2 103/ul Normal 0.0-0.7 [facility] Comment on above: Performed By: #### C BC #### [facility] [address] [place] [address] Dr. Meghna Alas Eosinophils/100 WBC (Bld) 3.7 % Normal 0.9-7.0 [facility] Comment on above: Performed By: #### C BC #### [facility] [address] [place] [address] Dr. Meghna Alas Erythrocyte distribution width (RBC) [Ratio] 11.7 % Normal 11.0-15.0 [facility] Comment on above: Performed By: #### C BC #### [facility] [address] [place] [address] Dr. Meghna Alas Hematocrit (Bld) [Volume fraction] 43.6 % Normal 36.0-48.0 [facility] Comment on above: Performed By: #### C BC #### [facility] [address] [place] [address] Dr. Meghna Alas Hemoglobin (Bld) [Mass/Vol] 14.9 g/dL Normal 12.0-16.0 [facility] Comment on above: Performed By: #### C BC #### [facility] [address] [place] [address] Dr. Meghna Alas IG # 0.02 10e3/ul Normal 0.00-0.03 [facility] Comment on above: Performed By: #### C BC #### [facility] [address] [place] [address] Dr. Meghna Alas IG % 0.3 % Normal 0.0-0.5 [facility] Comment on above: Performed By: #### C BC #### [facility] [address] [place] [address] Dr. Meghna Alas LYMPH # 1.7 103/ul Normal 1.2-3.8 [facility] Comment on above: Performed By: #### C BC #### [facility] [address] [place] [address] Dr. Meghna Alas Lymphocytes/100 WBC (Bld) 27.7 % Normal 20.5-60.0 [facility] Comment on above: Performed By: #### C BC #### [facility] [address] [place] [address] Dr. Meghna Alas MANUAL DIFF REQ NO Normal [facility] Comment on above: Performed By: #### C BC #### [facility] [address] [place] [address] Dr. Meghna Alas MCH (RBC) [Entitic mass] 30.7 pg Normal 26.7-34.0 [facility] Comment on above: Performed By: #### C BC #### [facility] [address] [place] [address] Dr. Meghna Alas MCHC (RBC) [Mass/Vol] 34.2 g/dL Normal 29.9-35.2 [facility] Comment on above: Performed By: #### C BC #### [facility] [address] [place] [address] Dr. Meghna Alas MCV (RBC) [Entitic vol] 89.7 fL Normal 81.0-99.0 [facility] Comment on above: Performed By: #### C BC #### [facility] [address] [place] [address] Dr. Meghna Alas MONO # 0.4 103/ul Normal 0.3-0.8 [facility] Comment on above: Performed By: #### C BC #### [facility] [address] [place] [address] Dr. Meghna Alas Monocytes/100 WBC (Bld) 7.1 % Normal 1.7-12.0 [facility] Comment on above: Performed By: #### C BC #### [facility] [address] [place] [address] Dr. Meghna Alas NEUT # 3.7 103/ul Normal 1.4-6.5 [facility] Comment on above: Performed By: #### C BC #### [facility] [address] [place] [address] Dr. Meghna Alas Neutrophils/100 WBC (Bld) 60.4 % Normal 43.0-75.0 [facility] Comment on above: Performed By: #### C BC #### [facility] [address] [place] [address] Dr. Meghna Alas Platelet mean volume (Bld) [Entitic vol] 11.3 fL Normal 9.5-13.5 [facility] Comment on above: Performed By: #### C BC #### [facility] [address] [place] [address] Dr. Meghna Alas PLT 154 103/ul Normal 150-450 [facility] Comment on above: Performed By: #### C BC #### [facility] [address] [place] [address] Dr. Meghna Alas RBC 4.86 106/ul Normal 4.20-5.40 [facility] Comment on above: Performed By: #### C BC #### [facility] [address] [place] [address] Dr. Meghna Alas WBC 6.2 103/ul Normal 4.0-11.0 [facility] Comment on above: Performed By: #### C BC #### [facility] [address] [place] [address] Dr. Meghna Alas FREE T4on 07-26-2022 Free T4 [Mass/Vol] 1.04 ng/dL Normal 0.76-1.46 [facility] Comment on above: Performed By: #### F T4 #### [facility] [address] [place] [address] Dr. Meghna Alas GLYCOHEMOGLOBIN A1Con 2022 ADA RECOMMENDATION SEE BELOW Normal [facility] Comment on above: Result Comment: ADA RECOMMENDED LIMIT 4.0 - 6.0 ADA THERAPEUTIC TARGET < 7.0 ACTION SUGGESTED > 7.0 Performed By: #### A 1C #### [facility] [address] [place] [address] Dr. Meghna Alas Glucose [Mass/Vol] 82 mg/dL Normal [facility] Comment on above: Performed By: #### A 1C #### [facility] [address] [place] [address] Dr. Meghna Alas HbA1c (Bld) [Mass fraction] 4.5 % Normal 4.5-6.2 [facility] Comment on above: Performed By: #### A 1C #### [facility] [address] [place] [address] Dr. Meghna Alas TSHon 07-26-2022 TSH 1.522 uIU/mL Normal 0.358-3.740 [facility] Comment on above: Performed By: #### T SH #### [facility] [address] [place] [address] Dr. Meghna Alas Vital Signs Date Time Vital Sign Value Performing Clinician Facility 09-06-2024 15:31-0400 Body mass index (BMI) [Ratio] 33.17 kg/m2 Brandy SEARS Work Phone: [facility] 09-06-2024 15:31-0400 Body weight 84.94 kg Brandy SEARS Work Phone: [facility] 09-06-2024 15:31-0400 Diastolic blood pressure 82 mm[Hg] Brandy SEARS Work Phone: [facility] 09-06-2024 15:31-0400 Systolic blood pressure 110 mm[Hg] Brandy SEARS Work Phone: [facility] 08-08-2024 13:08-0400 Body mass index (BMI) [Ratio] 32.2 kg/m2 Layo Sherwin DO Work Phone: [facility] 08-08-2024 13:08-0400 Body weight 82.46 kg Layo Sherwin DO Work Phone: [facility] 08-08-2024 13:08-0400 Diastolic blood pressure 64 mm[Hg] Layo Sherwin DO Work Phone: [facility] 08-08-2024 13:08-0400 Systolic blood pressure 100 mm[Hg] Layo Sherwin Work Phone: [facility] 07-29-2024 09:53-0400 Body mass index (BMI) [Ratio] 31.18 kg/m2 Noms Nurse [facility] 07-29-2024 09:53-0400 Body weight 79.83 kg Nom Nurse [facility] 07-29-2024 09:53-0400 Diastolic blood pressure 72 mm[Hg] [facility] Nurse [facility] 07-29-2024 09:53-0400 Systolic blood pressure 118 mm[Hg] Noms Nurse [facility] 04-06-2024 14:04-0500 Blood Pressure Location [facility] 04-06-2024 14:04-0500 Diastolic blood pressure 74 mm[Hg] [facility]ory Ja[facility] 04-06-2024 14:04-0500 Heart rate 80 /min [facility] 04-06-2024 14:04-0500 SaO2% (BldA) [Mass fraction] 100 % Mallory Jauregui [facility] 04-06-2024 14:04-0500 Systolic blood pressure 108 mm[Hg] Mallory Jauregui [facility] 03-22-2024 10:45-0500 Diastolic blood pressure 62 mm[Hg] Juan Chavarria MD Work Phone: [facility] 03-22-2024 10:45-0500 Heart rate 65 /min Juan Chavarria MD Work Phone: [facility] 03-22-2024 10:45-0500 Respiratory rate 17 /min Juan Chavarria MD Work Phone: [facility] 03-22-2024 10:45-0500 SaO2% (BldA) [Mass fraction] 100 % Juan Chavarria MD Work Phone: [facility] 03-22-2024 10:45-0500 Systolic blood pressure 94 mm[Hg] Juan Chavarria MD Work Phone: [facility] 03-22-2024 09:45-0500 Body temperature 97.3 [degF] Juan Chavarria MD Work Phone: [facility] 03-22-2024 08:29-0500 Body height 160 cm Juan Chavarria MD Work Phone: [facility] 03-22-2024 08:29-0500 Body mass index (BMI) [Ratio] 29.25 kg/m2 Juan Chavarria MD Work Phone: [facility] 03-22-2024 08:29-0500 Body weight 74.9 kg Juan Chavraria MD Work Phone: [facility] 02-23-2024 09:49-0400 Body temperature 97.7 [degF] Juan Chavarria MD Work Phone: [facility] 02-23-2024 09:49-0400 Diastolic blood pressure 65 mm[Hg] Juan Chavarria MD Work Phone: [facility] 02-23-2024 09:49-0400 Heart rate 94 /min Juan Chavarria MD Work Phone: [facility] 02-23-2024 09:49-0400 Respiratory rate 22 /min Juan Chavarria MD Work Phone: [facility] 02-23-2024 09:49-0400 SaO2% (BldA) [Mass fraction] 100 % Juan Chavarria MD Work Phone: [facility] 02-23-2024 09:49-0400 Systolic blood pressure 102 mm[Hg] Juan Chavarria MD Work Phone: [facility] 02-23-2024 07:27-0400 Body height 160 cm Juan Chavarria MD Work Phone: [facility] 02-23-2024 07:27-0400 Body mass index (BMI) [Ratio] 29.41 kg/m2 Juan Chavarria MD Work Phone: [facility] 02-23-2024 07:27-0400 Body weight 75.3 kg Juan Chavarria MD Work Phone: [facility] 01-28-2024 10:31-0400 Diastolic blood pressure 59 mm[Hg] Leigh Ann Tuttle MD Work Phone: [facility] 01-28-2024 10:31-0400 Heart rate 71 /min Leigh Ann Tuttle MD Work Phone: [facility] 01-28-2024 10:31-0400 Respiratory rate 20 /min Leigh Ann Tuttle MD Work Phone: [facility] 01-28-2024 10:31-0400 SaO2% (BldA) [Mass fraction] 100 % Leigh Ann Tuttle MD Work Phone: [facility] 01-28-2024 10:31-0400 Systolic blood pressure 101 mm[Hg] Leigh Ann Tuttle MD Work Phone: [facility] 01-28-2024 09:31-0400 Body temperature 98.1 [degF] Leigh Ann Tuttle MD Work Phone: [facility] 01-28-2024 08:48-0400 Body height 160 cm Leigh Ann Tuttle MD Work Phone: [facility] 01-28-2024 08:48-0400 Body mass index (BMI) [Ratio] 29.21 kg/m2 Leigh Ann Tuttle MD Work Phone: [facility] 01-28-2024 08:48-0400 Body weight 74.8 kg Leigh Ann Tuttle MD Work Phone: [facility] 01-14-2024 10:52-0400 Body mass index (BMI) [Ratio] 29.43 kg/m2 Brandy Sheehan PA Work Phone: [facility] 01-14-2024 10:52-0400 Body weight 75.35 kg Brandy Sissy PA Work Phone: [facility] 01-14-2024 10:52-0400 Diastolic blood pressure 70 mm[Hg] Brandy [place] PA Work Phone: [facility] 01-14-2024 10:52-0400 Systolic blood pressure 120 mm[Hg] Brandy [place] PA Work Phone: [facility] 12-28-2023 10:09-0400 Body height 160 cm Juan Chavarria MD Work Phone: [facility] 12-28-2023 10:09-0400 Body mass index (BMI) [Ratio] 30.11 kg/m2 uJan Chavarria MD Work Phone: [facility] 12-28-2023 10:09-0400 Body weight 77.11 kg Juan Chavarria MD Work Phone: [facility] 12-28-2023 10:09-0400 Diastolic blood pressure 81 mm[Hg] Juan Chavarria MD Work Phone: [facility] 12-28-2023 10:09-0400 Heart rate 62 /min Juan Chavarria MD Work Phone: [facility] 12-28-2023 10:09-0400 Systolic blood pressure 119 mm[Hg] Juan Chavarria MD Work Phone: [facility] 2023 08:46-0400 Body height 160 cm Trish Thorpe P[employer]S C[employer]TER-FOOD SANITARIAN Work Phone: [facility] 2023 08:46-0400 Body mass index (BMI) [Ratio] 29.23 kg/m2 Trish Thorpe P[employer] C[employer]FOOD SANITARIAN Work Phone: [facility] 2023 08:46-0400 Body weight 74.84 kg Trish Thorpe [employer]FOOD SANITARIAN Work Phone: [facility] 2023 08:46-0400 Diastolic blood pressure 67 mm[Hg] Trish Thorpe P[employer] C[employer]FOOD SANITARIAN Work Phone: [facility] 2023 08:46-0400 Heart rate 72 /min Trish Thorpe [employer] SANITARIAN Work Phone: [facility] 2023 08:46-0400 Systolic blood pressure 122 mm[Hg] Trish Thorpe P[employer]S C[employer]FOOD SANITARIAN Work Phone: [facility] 10-02-2023 11:14-0400 Blood Pressure Location Princess Rapp [facility] 10-02-2023 11:14-0400 Body temperature 98.24 [degF] Princess Rapp [facility] 10-02-2023 11:14-0400 Diastolic blood pressure 66 mm[Hg] Princess Rapp [facility] 10-02-2023 11:14-0400 Heart rate 65 /min Princess Rapp [facility] 10-02-2023 11:14-0400 SaO2% (BldA) [Mass fraction] 98 % Princess Rapp [facility] 10-02-2023 11:14-0400 Systolic blood pressure 118 mm[Hg] Princess Rapp [facility] 08-27-2023 17:44-0400 Blood Pressure Location Princess Rapp [facility] 08-27-2023 17:44-0400 Body temperature 98.06 [degF] Princess Rapp [facility] 08-27-2023 17:44-0400 Diastolic blood pressure 76 mm[Hg] Princess Rapp [facility] 08-27-2023 17:44-0400 Heart rate 85 /min Princess Rapp [facility] 08-27-2023 17:44-0400 Respiratory rate 14 /min Princess Rapp [facility] 08-27-2023 17:44-0400 SaO2% (BldA) [Mass fraction] 99 % Princess Rapp [facility] 08-27-2023 17:44-0400 Systolic blood pressure 110 mm[Hg] Princess Rapp [facility] 02-19-2023 07:41-0400 Body temperature 97.7 [degF] Princess Rapp [facility] 02-19-2023 07:41-0400 Diastolic blood pressure 70 mm[Hg] Princess Rapp [facility] 02-19-2023 07:41-0400 Heart rate 81 /min Princess Rapp [facility] 02-19-2023 07:41-0400 SaO2% (BldA) [Mass fraction] 99 % Princessbrad [facility]pap [facility] 02-19-2023 07:41-0400 Systolic blood pressure 110 mm[Hg] Princess Dionte [facility] 07-24-2021 16:57-0400 Blood Pressure Location Leigh Ann Covington [facility] 07-24-2021 16:57-0400 Body temperature 97.7 [degF] Leigh Ann Covington [facility] 07-24-2021 16:57-0400 Diastolic blood pressure 68 mm[Hg] Leigh Ann Covington [facility] 07-24-2021 16:57-0400 Heart rate 88 /min Leigh Ann Covington [facility] 07-24-2021 16:57-0400 SaO2% (BldA) [Mass fraction] 99 % Leigh Ann Covington [facility] 07-24-2021 16:57-0400 Systolic blood pressure 122 mm[Hg] Leigh Ann Covington [facility] Encounters Encounter Date Encounter Type Care Provider Facility Start: 09-06-2024 End: 09-06-2024 flow sheet Brandy SEARS Work Phone: [facility] Comment on above: STD exposure; Second trimester ; 14 weeks gestation of ; Screening, , for anatomic survey Start: 09-06-2024 End: 09-06-2024 ambulatory BRANDY SPIVEYEY Not Available Start: 09-06-2024 End: 09-06-2024 Bamboo flowsheet Brandy SEARS Work Phone: [facility] Start: 09-06-2024 End: 09-07-2024 Bamboo flowsheet Brandy [place] PA Work Phone: [facility] Start: 09-06-2024 End: 09-07-2024 External Result Encounter Brandy Sheehan PA Work Phone: [facility] Unsolicited Start: 08-29-2024 End: 08-29-2024 Clinisync Result Encounter Layo Sherwin DO Work Phone: [facility] Unsolicited Start: 08-29-2024 End: 08-29-2024 Clinisync Result Encounter Layo Sherwin DO Work Phone: [facility] Unsolicited Start: 08-08-2024 End: 08-08-2024 Bamboo flowsheet Layo Sherwin DO Work Phone: [facility] Start: 08-08-2024 End: 08-08-2024 Bamboo flowsheet Layo Sherwin DO Work Phone: [facility] Start: 08-08-2024 End: 08-08-2024 flow sheet Layo Sherwin DO Work Phone: [facility] Comment on above: 10 weeks gestation o f ; First trimester Start: 08-08-2024 End: 08-08-2024 ambulatory LAYO SHERWIN Not Available Start: 07-29-2024 End: 07-29-2024 Office outpatient visit 5 minutes [facility] Sherwin Nurse [facility] Comment on above: GA: 9w2d Start: 07-29-2024 End: 07-29-2024 ambulatory LAYO SHERWIN Not Available Start: 07-11-2024 End: 07-11-2024 Patient encounter procedure Donya Abernathy APRN-FOOD SANITARIAN Work Phone: [facility] Comment on above: Fertility testing (P rimary Dx); Encounter to determine viability of , single or unspecified fetus Start: 07-11-2024 End: 07-11-2024 [facility] Start: 06-30-2024 End: 06-30-2024 [facility] Start: 06-23-2024 End: 06-23-2024 [facility] Start: 06-23-2024 End: 06-23-2024 [facility] Start: 06-13-2024 End: 06-13-2024 Subsequent hospital visit by physician Juan Chavarria MD Work Phone: [facility] Comment on above: Encounter for assist ed reproductive fertility cycle Start: 06-13-2024 End: 06-13-2024 ambulatory [facility] Start: 06-07-2024 End: 06-07-2024 [facility] Start: 06-06-2024 End: 06-06-2024 [facility] Start: 06-06-2024 End: 06-06-2024 Professional / ancillary services management Myles Sullivan Kelsy Ultrasound [facility] Comment on above: Female infertility Start: 06-06-2024 End: 06-06-2024 [facility] Start: 05-23-2024 End: 05-23-2024 [facility] Start: 04-06-2024 ambulatory Mallory Jauregui Faci lity:[facility] Start: 04-06-2024 End: 04-06-2024 Patient encounter procedure Mallory Jauregui [facility] Start: 03-22-2024 End: 03-22-2024 Subsequent hospital visit by physician Juan Chavarria MD Work Phone: [facility] Comment on above: Encounter for assist ed reproductive fertility cycle Start: 03-22-2024 End: 03-22-2024 ambulatory JUAN Zamora [facility] Start: 03-21-2024 End: 03-21-2024 ambulatory [facility] Start: 03-20-2024 End: 03-20-2024 Professional / ancillary services management Mac [id number] [facility] Comment on above: Female infertility Start: 03-20-2024 End: 03-20-2024 ambulatory [facility] Start: 03-19-2024 End: 03-19-2024 Professional / ancillary services management Mac [id number] [facility] Comment on above: Female infertility Start: 03-19-2024 End: 03-19-2024 [facility] Start: 03-17-2024 End: 03-17-2024 [facility] Start: 03-17-2024 End: 03-17-2024 Professional / ancillary services management Mac [id number] [facility] Ul[facility]ound [facility] Comment on above: Female infertility Start: 03-17-2024 End: 03-17-2024 [facility] Start: 03-15-2024 End: 03-15-2024 [facility] Start: 03-15-2024 End: 03-15-2024 [facility] Start: 03-15-2024 End: 03-15-2024 Professional / ancillary services management Mac [id number] [facility] Comment on above: Female infertility Start: 03-09-2024 End: 03-09-2024 ambulatory [facility] Start: 03-09-2024 End: 03-09-2024 Patient encounter status [facility] Start: 03-09-2024 End: 03-09-2024 Professional / ancillary services management Mac [id number] [facility] Comment on above: Female infertility; Pre-procedure lab exam Start: 03-09-2024 End: 03-09-2024 ambulatory AMERICA R [facility] Start: 02-23-2024 End: 02-23-2024 Subsequent hospital visit by physician Juan Chavarria MD Work Phone: [facility] Comment on above: Encounter for assist ed reproductive fertility cycle Start: 02-23-2024 End: 02-23-2024 ambulatory JUAN CHAVARRIA [facility] Start: 02-22-2024 End: 02-22-2024 ambulatory [facility] Start: 02-21-2024 End: 02-21-2024 Professional / ancillary services management Mac [id number] K[facility] Ultrasound [facility] Comment on above: Female infertility Start: 02-21-2024 End: 02-21-2024 ambulatory [facility] Start: 02-20-2024 End: 02-20-2024 ambulatory [facility] Start: 02-20-2024 End: 02-20-2024 Professional / ancillary services management Mac [id number] K[facility] Ultrasound [facility] Comment on above: Female infertility Start: 02-20-2024 End: 02-20-2024 ambulatory [facility] Start: 02-18-2024 End: 02-18-2024 [facility] Start: 02-18-2024 End: 02-18-2024 Professional / ancillary services management [facility] [id number] Kelsy Ultrasound [facility] Comment on above: Female infertility Start: 02-18-2024 End: 02-18-2024 ambulatory [facility] Start: 02-16-2024 End: 02-16-2024 Professional / ancillary services management [facility] [id number] Kelsy Ultrasound [facility] Comment on above: Female infertility Start: 02-16-2024 End: 02-16-2024 ambulatory [facility] Start: 02-09-2024 End: 02-09-2024 Patient encounter [place] [facility] Start: 02-09-2024 End: 02-09-2024 Professional / ancillary services management Mac [id number] Kelsy Ultrasound [facility] Comment on above: Pre-procedure lab ex am; Female infertility Start: 02-09-2024 End: 02-09-2024 ambulatory AMERICA QUINTANILLA [facility] Start: 02-02-2024 End: 02-02-2024 ambulatory [facility] Start: 01-28-2024 End: 01-28-2024 Subsequent hospital visit by physician Leigh Ann Tuttle MD Work Phone: [facility] Comment on above: Endometrial polyp Start: 01-28-2024 End: 01-28-2024 ambulatory LEIGH ANN TUTTLE [facility] Start: 01-25-2024 End: 01-25-2024 ambulatory [facility] Start: 01-25-2024 End: 01-25-2024 Encounter for preprocedural laboratory examination [facility] Start: 01-14-2024 End: 01-14-2024 Bamboo flowsheet Brandy SEARS Work Phone: [facility] Start: 01-14-2024 End: 01-20-2024 Bamboo flowsheet Brandy SEARS Work Phone: [facility] Start: 01-14-2024 End: 01-20-2024 Clinisync Result Encounter Brandy SEARS Work Phone: [facility] Unsolicited Start: 01-14-2024 End: 01-14-2024 Patient encounter procedure rBandy SEARS Work Phone: [facility] Work Phone: Start: 01-14-2024 End: 01-14-2024 Periodic preventive med est patient 18-39 yrs Brandy SEARS Work Phone: [facility] Comment on above: Well woman exam with routine gynecological exam Start: 01-14-2024 End: 01-14-2024 ambulatory BRANDY SHEEHAN Not Available Start: 12-28-2023 End: 12-28-2023 Patient encounter procedure Juan Chavarria MD Work Phone: [facility] Comment on above: Fertility testing [Z 31.41] (Primary Dx); 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 [Z31.81, N97.8] Start: 12-28-2023 End: 12-28-2023 ambulatory JUAN CHAVARRIA [facility] Start: 12-25-2023 End: 12-25-2023 ambulatory AFUA JULIAN [facility] Start: 2023 End: 2023 ambulatory TRISH [facility] Start: 2023 End: 2023 Patient encounter procedure Trish Thorpe P[employer] C[employer]FOOD SANITARIAN Work Phone: [facility] Comment on above: Encounter for screen ing for other viral diseases (Primary Dx); Encounter for Rh blood typing; Screening for STDs (sexually transmitted diseases); Genetic screening; Fertility testing; Female infertility associated with male factors Start: 2023 End: 2023 Patient encounter status Trish Thorpe P[employer]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 Start: 08-27-2023 End: 08-27-2023 ambulatory Princess Rapp Facility[facility] Start: 08-27-2023 End: 08-27-2023 Patient encounter procedure Princess Pickard Dion[facility] Start: 03-25-2023 End: 03-25-2023 Patient encounter procedure Princess Pickard [facility] Start: 02-19-2023 End: 02-19-2023 Patient encounter procedure Princess Pickard [facility]te [facility] Start: 07-26-2022 End: 07-27-[address] LAYO COURTNEY . Facility: Start: 07-23-2022 End: 07-23-[address] LAYO COURTNEY . Facility: Start: 07-24-2021 End: 07-24-2021 Patient encounter procedure Leigh Ann Covington [facility] Procedures Date Procedure Procedure Detail Performing Clinician Start: 09-06-2024 RECURRENT VAGINITIS (HTRX) Brandy SEARS Work Phone: Start: 09-06-2024 Urnls dip stick/tabl et rgnt non-auto w/o micrscp Brandy SEARS Work Phone: Start: 08-29-2024 ALL CBC WITH AUTO DIFF Layo Sherwin DO Work Phone: Start: 08-08-2024 Urnls dip stick/tabl et rgnt non-auto w/o micrscp Layo Sherwin DO Work Phone: Start: 07-29-2024 End: 07-29-2024 Urnls dip stick/tablet rgnt non-auto w/o micrscp Layo Sherwin DO Work Phone: Start: 06-13-2024 Embryo transfer intrauterine Beti Warren MD Work Phone: Start: 06-13-2024 Ultrasonic guidance intraoperative Beti Warren MD Work Phone: Start: 06-06-2024 Us pelvic nonobstetr ic image dcmtn limited/f/u Donya Abernathy [employer] SANITARIAN Work Phone: Start: 03-22-2024 Follicle puncture oo cyte retrieval any method Donya Abernathy P[employer] C[employer]FOOD SANITARIAN Work Phone: Start: 03-20-2024 Us pelvic nonobstetr ic image dcmtn limited/f/u Donya Abernathy P[employer] C[employer]FOOD SANITARIAN Work Phone: Start: 03-20-2024 Assay of estradiol America Gt Dwight P[employer] C[employer]-FOOD SANITARIAN Work Phone: Start: 03-19-2024 Us pelvic nonobstetr ic image dcmtn limited/f/u Donya Abernathy P[employer] C[employer]FOOD SANITARIAN Work Phone: Start: 03-17-2024 Us pelvic nonobstetr ic image dcmtn limited/f/u Donya Abernathy P[employer] C[employer]FOOD SANITARIAN Work Phone: Start: 03-17-2024 Assay of estradiol Donya Abernathy P[employer] C[employer]FOOD SANITARIAN Work Phone: Start: 03-15-2024 Us pelvic nonobstetr ic image dcmtn limited/f/u Donya Abernathy P[employer] C[employer]FOOD SANITARIAN Work Phone: Start: 03-15-2024 Assay of estradiol Donya Abernathy P[employer] C[employer]FOOD SANITARIAN Work Phone: Start: 03-09-2024 Us pelvic nonobstetr ic image dcmtn limited/f/u America Gt Dwight P[employer]S C[employer]-FOOD SANITARIAN Work Phone: Start: 03-09-2024 Blood count hematocrit Donya Abernathy P[employer] C[employer]-FOOD SANITARIAN Work Phone: Start: 02-23-2024 Follicle puncture oo cyte retrieval any method Beth Warren MD Work Phone: Start: 02-21-2024 Us pelvic nonobstetr ic image dcmtn limited/f/u America R Dwight P[employer]FOOD SANITARIAN Work Phone: Start: 02-21-2024 Gonadotropin luteini zing hormone Beti Warren MD Work Phone: Start: 02-18-2024 Us pelvic nonobstetr ic image dcmtn limited/f/u America R Dwight P[employer] C[employer]FOOD SANITARIAN Work Phone: Start: 02-18-2024 Assay of estradiol America R Dwight P[employer] C[employer]FOOD SANITARIAN Work Phone: Start: 02-16-2024 Assay of estradiol America R Dwight P[employer] C[employer]-FOOD SANITARIAN Work Phone: Start: 02-09-2024 Blood count hematocrit America R Dwight P[employer] C[employer]-FOOD SANITARIAN Work Phone: Start: 02-09-2024 Us pelvic nonobstetr ic image dcmtn limited/f/u America R Dwight P[employer] C[employer]FOOD SANITARIAN Work Phone: Start: 01-28-2024 Hysteroscopy bx endometrium&/polypc w/wo d&c Juan Chavarria MD Work Phone: Start: 01-28-2024 Urine test visual color cmprsn meths Leigh Ann Tuttle MD Work Phone: Start: 01-14-2024 IGP,APTIMA HPV,AGE GDLN Brandy SEARS Work Phone: Start: 01-14-2024 Microscopic observat ion [Identifier] in Cervix by Cyto stain Leigh Ann Tuttle MD Work Phone: Start: 11-15-2015 Right Knee Arthrosco py with Medial Meniscal Repair Leigh Ann Covington Start: 07-28-2013 right knee anterior cruciate ligament allograft reconstruction with [id number], debridment medial meniscus tear, patellofemoral chondroplasty-Grade I-II Leigh Ann Covington Tonsillectomy Leigh Ann Covington tubes in the ears Leigh Ann bartholomew Plan of Treatment Date Care Activity Detail Author Start: 2072 RSV High Risk: (Elderly (60+) or Population) (1 - 1-dose 75+ series) RSV High Risk: (Elderly (60+) or Population) (1 - 1-dose 75+ series) [facility] Start: 12-12-2047 Zoster Vaccines (1 of 2) Zoster Vaccines (1 of 2) [facility] Start: 01-13-2027 Screening for malignant neoplasm of cervix [facility] Start: 01-02-2025 Influenza vaccination Influenza Vaccine (Season Ended) [facility] Start: 10-11-2024 End: 10-11-2024 Patient encounter procedure 10/11/2024 2:50 PM EDT Routine [facility] [address] [place] [id number] Layo Courtney DO [address] [place] [address] [facility] Start: 09-06-2024 End: 09-06-2024 Patient encounter procedure [facility] Comment on above: Arrived Start: 09-06-2024 End: 11-06-2024 Alpha fetoprotein, maternal Alpha fetoprotein, maternal Lab Routine Second trimester Expected: 09/06/2024 (Approximate), Expires: 11/06/2024 [facility] Comment on above: Expected: 09/06/2024 (Approximate), Expi res: 11/06/2024 Start: 09-06-2024 End: 12-07-2024 US for US OB 14+ weeks anatomy scan Imaging Routine Screening, , for anatomic survey Expected: 09/06/2024, Expires: 12/07/2024 [facility] Comment on above: Expected: 09/06/2024, Expires: Start: 08-08-2024 End: 08-08-2024 Patient encounter procedure [facility] Comment on above: Arrived Start: 07-29-2024 End: 07-29-2025 ABO/Rh ABO/Rh Lab Routine Missed menses , unspecified gestational age Expected: 07/29/2024 (Approximate), Expires: 07/29/2025 [facility] Comment on above: Expected: 07/29/2024 (Approximate), Expi res: 07/29/2025 Start: 07-29-2024 End: 07-29-2025 Blood type and Indirect antibody screen panel - Blood Type and screen Lab Routine Missed menses , unspecified gestational age Expected: 07/29/2024 (Approximate), Expires: 07/29/2025 [facility] Work Phone: Comment on above: Expected: 07/29/2024 (Approximate), Expi res: 07/29/2025 Start: 07-29-2024 End: 07-29-2025 Drugs of abuse panel - Urine by Screen method Rapid drug screen, urine Lab Routine , unspecified gestational age Encounter for supervision of normal first in first trimester Expected: 07/29/2024 (Approximate), Expires: 07/29/2025 [facility] Comment on above: Expected: 07/29/2024 (Approximate), Expi res: 07/29/2025 Start: 07-11-2024 End: 07-11-2025 Progesterone [Mass/volume] in Serum or Plasma Progesterone Lab Routine Fertility testing Expected: 07/11/2024 (Approximate), Expires: 07/11/2025 [facility] Service Area Work Phone: Comment on above: Expected: 07/11/2024 (Approximate), Expi res: 07/11/2025 Start: 06-23-2024 Orders Only 06/23/2024 Orders Only Valeria [address] [address] Ira Lopez, MISHEL Encounter for test, result unknown [facility] Comment on above: Encounter for test, result unk nown Start: 03-20-2024 End: 03-20-2025 Lutropin [Units/volume] in Serum or Plasma Luteinizing Hormone Lab STAT Female infertility Expected: 03/20/2024 (Approximate), Expires: 03/20/2025 [facility] Work Phone: Comment on above: Expected: 03/20/2024 (Approximate), Expi res: 03/20/2025 Start: 03-20-2024 End: 03-20-2025 Progesterone [Mass/volume] in Serum or Plasma Progesterone Lab STAT Female infertility Expected: 03/20/2024 (Approximate), Expires: 03/20/2025 [facility] Service Area Work Phone: Comment on above: Expected: 03/20/2024 (Approximate), Expi res: 03/20/2025 Start: 03-20-2024 End: 03-20-2024 Professional / ancillary services management 03/20/2024 8:00 AM EST Ancillary Procedure [facility] [address] [place], [place] [phone] [facility] Start: 03-19-2024 End: 03-19-2024 Professional / ancillary services management 03/19/2024 8:30 AM EST Ancillary Procedure [facility] [address] [address] [facility] Start: 03-17-2024 End: 03-17-2025 Estradiol (E2) [Mass/volume] in Serum or Plasma Estradiol Lab STAT Female infertility Expected: 03/17/2024 (Approximate), Expires: 03/17/2025 [facility] Service Area Work Phone: Comment on above: Expected: 03/17/2024 (Approximate), Expi res: 03/17/2025 Start: 03-17-2024 End: 03-17-2025 Progesterone [Mass/volume] in Serum or Plasma [facility] Work Phone: Comment on above: Expected: 03/17/2024 (Approximate), Expi res: 03/17/2025 Start: 03-17-2024 End: 03-17-2024 Professional / ancillary services management 03/17/2024 6:45 AM EST Ancillary Procedure [facility] [address] [place] [address] [facility] Start: 03-15-2024 End: 03-15-2024 Professional / ancillary services management 03/15/2024 6:45 AM EST Ancillary Procedure [facility] [address] [place] [address] [facility] Start: 03-09-2024 End: 03-09-2024 Professional / ancillary services management 03/09/2024 7:15 AM EST Ancillary Procedure [facility]on [address] [place] [address] [facility] Start: 02-23-2024 End: 02-23-2024 Patient encounter procedure 02/23/2024 8:30 AM EDT Appointment [facility] [address] [place] [phone] Juan Chavarria MD [address] Alexia Brodie Tenorio [address] [place] [id number] [place] [address] [address] Department of Anesthesiology [place] [address] [facility] Start: 02-21-2024 End: 02-21-2024 Professional / ancillary services management 02/21/2024 8:30 AM EDT Ancillary Procedure [facility] [address] [place] [address] [facility] Start: 02-20-2024 End: 02-17-2025 Estradiol (E2) [Mass/volume] in Serum or Plasma Estradiol Lab STAT Female infertility Expected: 02/20/2024 (Approximate), Expires: 02/17/2025 [facility] Service Area Work Phone: Comment on above: Expected: 02/20/2024 (Approximate), Expi res: 02/17/2025 Start: 02-20-2024 End: 02-17-2025 Progesterone [Mass/volume] in Serum or Plasma Progesterone Lab STAT Female infertility Expected: 02/20/2024 (Approximate), Expires: 02/17/2025 [facility] Work Phone: Comment on above: Expected: 02/20/2024 (Approximate), Expi res: 02/17/2025 Start: 02-20-2024 End: 02-20-2024 Professional / ancillary services management 02/20/2024 8:30 AM EDT Ancillary Procedure [facility] [address] [place] [phone] [facility] Start: 02-18-2024 End: 02-18-2024 Professional / ancillary services management 02/18/2024 7:45 AM EDT Ancillary Procedure [facility] [address] [place] [address] [facility] Start: 02-16-2024 End: 02-16-2024 Professional / ancillary services management 02/16/2024 7:15 AM EDT Ancillary Procedure [facility] [address] [place] [address] [facility] Start: 02-09-2024 End: 02-09-2024 Professional / ancillary services management 02/09/2024 7:15 AM EDT Ancillary Procedure [facility] [address] [place] [address] [facility] Start: 01-14-2024 End: 01-14-2024 Patient encounter procedure 01/14/2024 11:00 AM EDT Office Visit [facility] [address] [place] [id number] Brandy Sheehan PA [address] [place] [address] Arrived [facility] Comment on above: Arrived Start: 01-03-2024 COVID-19 Vaccine ( season) COVID-19 Vaccine ( season) [facility] Start: 01-03-2024 COVID-19 Vaccine ( season) COVID-19 Vaccine ( season) [facility] Start: 01-03-2024 Influenza vaccination Influenza Vaccine (#1) [facility] Start: 12-25-2023 End: 12-25-2023 Telemedicine consultation with patient 12/25/2023 9:00 AM EDT Telemedicine Clinical Support [facility] [address] [place] [address] Afua Julian I, LGC [address] [facility] [place] [address] [facility] Start: 2023 End: 12-10-2024 Chlamydia trachomatis and Neisseria gonorrhoeae DNA [Identifier] in Unspecified specimen by EDELMIRA with probe detection [facility] Work Phone: Comment on above: Expected: 2023 (Approximate), Expi res: 12/10/2024 Start: 2023 End: 12-10-2024 Hepatitis B virus surface Ag [Presence] in Serum or Plasma by Immunoassay [facility] Work Phone: Comment on above: Expected: 2023 (Approximate), Expi res: 12/10/2024 Start: 2023 End: 12-10-2024 Hepatitis C virus Ab [Presence] in Serum [facility] Work Phone: Comment on above: Expected: 2023 (Approximate), Expi res: 12/10/2024 Start: 2023 End: 12-10-2024 HIV 1+2 Ab+HIV1 p24 Ag [Presence] in Serum or Plasma by Immunoassay [facility] Work Phone: Comment on above: Expected: 2023 (Approximate), Expi res: 12/10/2024 Start: 2023 End: 12-10-2024 Rubella virus IgG Ab [Units/volume] in Serum [facility] Work Phone: Comment on above: Expected: 2023 (Approximate), Expi res: 12/10/2024 Start: 2023 End: 12-10-2024 Treponema pallidum IgG+IgM Ab [Presence] in Serum by Immunoassay [facility] Work Phone: Comment on above: Expected: 2023 (Approximate), Expi res: 12/10/2024 Start: 2023 End: 12-10-2024 Varicella zoster virus IgG Ab [Presence] in Serum by Immunoassay [facility] Work Phone: Comment on above: Expected: 2023 (Approximate), Expi res: 12/10/2024 Start: 01-02-2023 COVID-19 Vaccine ( season) COVID-19 Vaccine ( season) [facility] Start: 12-21-2019 DTaP/Tdap/Td Vaccines (2 - Td or Tdap) DTaP/Tdap/Td Vaccines (2 - Td or Tdap) [facility] Start: 2018 Screening for malignant neoplasm of cervix [facility] Start: 2016 Hepatitis B Vaccines (1 of 3 - 19+ 3-dose series) Hepatitis B Vaccines (1 of 3 - 19+ 3-dose series) [facility] Start: 12-12-2015 Hepatitis C screening Hepatitis C Screening [facility] Start: 2012 HPV Vaccines (1 - 3-dose series) HPV Vaccines (1 - 3-dose series) [facility] Start: 03-14-2010 Varicella vaccination Varicella Vaccines (2 of 2 - 2-dose childhood series) [facility] Start: 01-17-2010 MMR Vaccines (1 of 1 - Standard series) MMR Vaccines (1 of 1 - Standard series) [facility] Start: 1997 HIV screening HIV Screening [facility] Start: 1997 Lipid panel Lipid Panel [facility] Start: 1997 Yearly Adult Physical Yearly Adult Physical [facility] Bacteria identified in Urine by Culture Urine culture Microbiology Routine Missed menses Ordered: 07/29/2024 [facility] Comment on above: Ordered: 07/29/2024 CBC W Auto Different ial panel - Blood CBC and differential Lab Routine Missed menses , unspecified gestational age Ordered: 07/29/2024 [facility] Comment on above: Ordered: 07/29/2024 CHLAMYDIA TRACHOMATI S (GENITO/STI) CHLAMYDIA TRACHOMATIS (GENITO/STI) Lab Routine STD exposure Ordered: 09/06/2024 [facility] Comment on above: Ordered: 09/06/2024 End: 02-23-2024 Choriogonadotropin ( test) [Presence] in Urine POCT , urine manually resulted Point of Care Testing Routine Once (Lab) for 1 Occurrences starting 02/23/2024 until 02/23/2024 [facility] Work Phone: Comment on above: Once (Lab) for 1 Occurrences starting until 02/23/2024 End: 03-22-2024 Choriogonadotropin ( test) [Presence] in Urine POCT , urine manually resulted Point of Care Testing Routine Once (Lab) for 1 Occurrences starting 03/22/2024 until 03/22/2024 [facility] Work Phone: Comment on above: Once (Lab) for 1 Occurrences starting until 03/22/2024 End: 06-13-2024 Choriogonadotropin ( test) [Presence] in Urine POCT , urine manually resulted Point of Care Testing Routine Once (Lab) for 1 Occurrences starting 06/13/2024 until 06/13/2024 [facility] Work Phone: Comment on above: Once (Lab) for 1 Occurrences starting until 06/13/2024 Cytology Cervical or vaginal smear or scraping study Pap Smear Pathology and Cytology Routine Well woman exam with routine gynecological exam Ordered: 01/14/2024 [facility] Work Phone: Comment on above: Ordered: 01/14/2024 Hemoglobin A1c/Hemoglobin.total in Blood Hemoglobin A1c Lab Routine Missed menses , unspecified gestational age Ordered: 07/29/2024 [facility] Comment on above: Ordered: 07/29/2024 Hepatitis B virus abrams rface Ag [Presence] in Serum or Plasma by Immunoassay Hepatitis B surface antigen Lab Routine Missed menses , unspecified gestational age Ordered: 07/29/2024 [facility] Comment on above: Ordered: 07/29/2024 Hepatitis C virus Ab [Presence] in Serum or Plasma by Immunoassay Hepatitis C antibody Lab Routine Missed menses , unspecified gestational age Ordered: 07/29/2024 [facility] Comment on above: Ordered: 07/29/2024 HIV-1/HIV-2 antigen/antibody combination immunoassay HIV-1 and HIV-2 antibodies Lab Routine Missed menses , unspecified gestational age Ordered: 07/29/2024 [facility] Comment on above: Ordered: 07/29/2024 Neisseria gonorrhoea e DNA [Presence] in Unspecified specimen by EDELMIRA with probe detection Neisseria gonorrhea DNA probe, direct Lab Routine STD exposure Ordered: 09/06/2024 [facility] Comment on above: Ordered: 09/06/2024 Reagin Ab [Presence] in Serum by RPR RPR Lab Routine Missed menses , unspecified gestational age Ordered: 07/29/2024 [facility] Comment on above: Ordered: 07/29/2024 KELSY US Pelvis Limite d Follicles - Follicle Studies Performed KELSY US Pelvis Limited Follicles - Follicle Studies Performed Imaging Routine Female infertility 02/16/2024 7:17 AM T [facility] Work Phone: KELSY US Pelvis Limite d Follicles - Follicle Studies Performed KELSY US Pelvis Limited Follicles - Follicle Studies Performed Imaging Routine Female infertility 02/20/2024 9:06 AM [facility] Work Phone: Rubella antibody, IgG Rubella an tibody, IgG Lab Routine Missed menses , unspecified gestational age Ordered: 07/29/2024 [facility] Comment on above: Ordered: 07/29/2024 SURESWAB(R) ADVANCED VAGINITIS PLUS, TMA SURESWAB(R) ADVANCED VAGINITIS PLUS, TMA Pathology and Cytology Routine STD exposure Ordered: 09/06/2024 [facility] Work Phone: Comment on above: Ordered: 09/06/2024 End: 01-28-2024 Surgical pathology study [facility] Work Phone: Comment on above: Once (Lab) for 1 Occurrences starting until 01/28/2024, 1 completed Once (Lab) for 1 Occ urrences starting 01/28/2024 until 01/28/2024 Immunizations Immunization Date Immunization Notes Care Provider Shahid mares 12-20-2009 meningococcal ACWY vaccine, unspecified formulation Princess Rapp [facility] 12-20-2009 tetanus toxoid, reduced diphtheria toxoid, and acellular pertussis vaccine, adsorbed Princesssourav Rapp [facility] 12-20-2009 varicella virus vaccine Princess Rapp [facility] NEGATED: Highlighted row has not occurred!04-06-2024 influenza virus vaccine, unspecified formulation Mallory Juventino [facility] NEGATED: Highlighted row has not occurred!06-26-2021 influenza virus vaccine, unspecified formulation Leigh Ann [facility] NEGATED: Highlighted row has not occurred!06-26-2021 SARS-CoV-2 (COVID-19) Ad26 vaccine, recombinant Leigh Ann [facility] NEGATED: Highlighted row has not occurred!01-29-2021 influenza virus vaccine, unspecified formulation Leigh Ann [facility] NEGATED: Highlighted row has not occurred!01-29-2021 SARS-CoV-2 (COVID-19) Ad26 vaccine, recombinant Leigh Ann [facility] NEGATED: Highlighted row has not occurred!05-03-2019 influenza virus vaccine, live, attenuated, for intranasal use Leigh [facility] NEGATED: Highlighted row has not occurred!09-30-2018 influenza virus vaccine, unspecified formulation Leigh Ann [facility] Payers Date Payer Category Payer Managed Care (Private) [id number] [id number] 2022 Private Health Insurance [employer] [id number] 2022 Unknown [id number]. 1.13.647.2. [id number] 2022 Unknown [id number] 1997 Unknown [id number] 2.16.840.1.090524.3.579.2. 593 1997 Unknown [id number] 2.16.840.1.316163.3.579.2. 593 1997 Unknown [id number] 2.16.840.1.524246.3.579.2. 727 1997 Unknown [id number] 2.16.840.1.898801.3.579.2. 727 1997 Unknown [id number] 2.16.840.1.370701.3.579.2. 727 1997 Unknown [id number] 2.16.840.1.959861.3.579.2. 727 1997 Unknown [id number] 2.16840.1.208143.3.579.2. 1242 1997 Unknown [id number] 2.16.840.1.692784.3.579.2. 1242 1997 Unknown [id number] 2.16.840.1.597471.3.579.2. 1242 1997 Unknown [id number] 2.16840.1.711447.3.579.2. 1244 1997 Unknown [id number] 2.840.1.655097.3.579.2. 1244 1997 Unknown [id number] 2.840.1.065641.3.579.2. 1244 1997 Unknown [id number] 2.840.1.257068.3.579.2. 1244 1997 Unknown [id number] 2.840.1.061497.3.579.2. 1244 1997 Unknown [id number] 2.840.1.333412.3.579.2. 1244 1997 Unknown [id number] 2.840.1.275685.3.579.2. 1244 1997 Unknown [id number] 2.840.1.179858.3.579.2. 1244 1997 Unknown [id number] 2.840.1.084631.3.579.2. 1244 1997 Unknown [id number] 2.840.1.425930.3.579.2. 1244 1997 Unknown [id number] 2.16840.1.370984.3.579.2. 1244 1997 Unknown [id number] 2.16840.1.905770.3.579.2. 1244 1997 Unknown [id number] 2.16840.1.610645.3.579.2. 1244 1997 Unknown [id number] 2.16840.1.851756.3.579.2. 1244 1997 Unknown [id number] 2.16.840.1.533917.3.579.2. 1244 1997 Unknown [id number] 2.16840.1.256240.3.579.2. 1244 1997 Unknown [id number] 2.16840.1.375925.3.579.2. 1244 1997 Unknown [id number] 2.16840.1.035705.3.579.2. 1244 1997 Unknown [id number] 2.16840.1.531833.3.579.2. 1244 1997 Unknown [id number] 2.840.1.504560.3.579.2. 1244 1997 Unknown [id number] 2.840.1.733530.3.579.2. 1244 1997 Unknown [id number] 2.840.1.328316.3.579.2. 1244 1997 Unknown [id number] 2.840.1.158605.3.579.2. 1244 1997 Unknown [id number] 2.840.1.779025.3.579.2. 1244 1997 Unknown [id number] 2.16840.1.040168.3.579.2. 1244 1997 Unknown [id number] 2.16840.1.934702.3.579.2. 1244 1997 Unknown [id number] 2.16840.1.148177.3.579.2. 1244 1997 Unknown [id number] 2.16840.1.988679.3.579.2. 1244 1997 Unknown [id number] 2.16.840.1.802839.3.579.2. 1245 1997 Unknown [id number] 2.16.840.1.224811.3.579.2. 1244 1997 Unknown [id number] 2.16.840.1.152262.3.579.2. 5 1997 Unknown [id number] 2.16.840.1.759197.3.579.2. 1244 1997 Unknown [id number] 2.16.840.1.643816.3.579.2. 1244 1997 Unknown [id number] 2.16.840.1.505098.3.579.2. 1244 1997 Unknown [id number] 2.16.840.1.739860.3.579.2. 1244 1997 Unknown [id number] 2.16.840.1.949611.3.579.2. 1244 1997 Unknown [id number] 2.16.840.1.790012.3.579.2. 1258 1997 Unknown [id number] 2.16.840.1.779067.3.579.2. 1258 1997 Unknown [id number] 2.16.840.1.471944.3.579.2. 1258 1997 Unknown [id number] 2.16.840.1.256552.3.579.2. 1258 1997 Unknown [id number] 2.16.840.1.036571.3.579.2. 1259 1959 Unknown [id number] 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 Date Type Detail Facility Start: 07-24-2021 End: 03-05-2023 Tobacco smoking status Never smoked tobacco (finding) [facility] Tobacco smoking status Never [facility] Start: 11-02-2023 End: 01-28-2024 Sex [facility]igned At [facility] Start: 2023 Tobacco use and exposure Smokeless tobacco non-user [facility] Work Phone: Start: 01-28-2024 End: 06-23-2024 Alcoholic beverage intake Ex-drinker (finding) [facility] Work Phone: Start: 11-02-2023 End: 01-28-2024 History of Social function [facility] Work Phone: Start: 2023 Alcohol Comment Occassionally [facility] Work Phone: Start: 1997 Sex assigned at Not on file [facility] Work Phone: Start: 12-01-2023 End: 07-11-2024 Exposure to SARS-CoV-2 (event) Not sure [facility] Start: 02-23-2024 End: 08-08-2024 Alcoholic beverage intake Current drinker of alcohol (finding) [facility] Work Phone: Start: 03-05-2023 Alcohol Comment Beer 1-2 times per m [facility] Start: 12-18-2023 End: 12-28-2023 Exposure to SARS-CoV-2 (event) Unable to assess [facility] Start: 06-08-2024 [facility] Procedure Code Equipment Code Equipment Origin al Text Equipment Identifier Dates [id number] Start: 03-01-2024 End: 03-09-2024 Functional Status Date Assessment Result Facility 04-06-2024 Functional Status N/A [facility] 10-02-2023 Functional Status N/A [facility] 08-27-2023 Functional Status N/A [facility] 02-19-2023 Functional Status N/A [facility] Clinical Notes 07-24-2021 to 09-06-2024 ORION Spence - 09/06/2024 2:50 PM Nahomi Guerrero NP - 08/08/2024 1:00 PM Jarrett Elder MA - 07/29/2024 9:30 AM SMITH Pascual - 07/11/2024 4:00 PM EDTDischarge Instructions Note Date & Type Note Facility 09-06-2024 History of Present illness Narrative Reason for Appointment: Patient ID: Sydney Romero is a 28 y.o. female who presents for Routine Visit Patient presents today for Return OB appointment.and culutres MEDICATIONS Current Outpatient Medications Medication Instructions cholecalciferol (VITAMIN D-3) 5,000 Units, Oral, Daily estradiol (ESTRACE) 2 mg, 2 times daily MV-Min-Fe Fum-FA-DHA ( 1 PO) 1 each, Oral, Daily progesterone 75 mg, Daily RT ALLERGIES Allergies Allergen Reactions Azithromycin Unknown Other Reaction(s): Unknown Latex Rash Other Reaction(s): Itching Nickel Itching and Rash PROBLEMS Active Ambulatory Problems Diagnosis Date Noted No Active Ambulatory Problems Resolved Ambulatory Problems Diagnosis Date Noted No Resolved Ambulatory Problems Past Medical History: Diagnosis Date Anxiety Contraception management Dermatitis Family history of polycystic kidney Fatigue GERD (gastroesophageal reflux disease) History of medical problems Tear of medial meniscus of right knee, sequela Verruca vulgaris HISTORY PAST MEDICAL HISTORY 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 Past Medical History: Diagnosis Date Anxiety Contraception management Dermatitis Family history of polycystic kidney Fatigue GERD (gastroesophageal reflux disease) History of medical problems History of injury of dental structures over heated Tear of medial meniscus of right knee, sequela Verruca vulgaris 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 Tobacco Use Smoking status: Never Smokeless tobacco: Not on file Substance Use Topics Alcohol use: Yes Comment: Beer 1-2 times per month Drug use: Never FAMILY HISTORY Family History Problem Relation Name Age of Onset Melanoma Neg Hx SURGICAL HISTORY Past Surgical History: Procedure Laterality Date ANTERIOR CRUCIATE LIGAMENT REPAIR Right 07/28/2013 SBS INNER EAR SURGERY Tubes in ears KNEE ARTHROSCOPY W/ MENISCAL REPAIR Right 11/15/2015 medial meniscus -SBS TONSILLECTOMY REVIEW OF SYSTEMS Review of Systems: Review of Systems Constitutional: Negative. HENT: Negative. Eyes: Negative. Respiratory: Negative. Cardiovascular: Negative. Gastrointestinal: Negative. Genitourinary: Negative. Musculoskeletal: Negative. Skin: Negative. Neurological: Negative. All other systems reviewed and are negative. Hematological: Negative. Endocrine: Negative. Allergic/Immunologic: Negative. OBJECTIVE Objective: Physical Exam Constitutional: Appearance: Normal appearance. She is normal weight. HENT: Head: Normocephalic. Cardiovascular: Rate and Rhythm: Normal rate. Pulses: Normal pulses. Pulmonary: Effort: Pulmonary effort is normal. Breath sounds: Normal breath sounds. Abdominal: Palpations: Abdomen is soft. Musculoskeletal: General: Normal range of motion. Neurological: General: No focal deficit present. Mental Status: She is alert and oriented to person, place, and time. Psychiatric: Mood and Affect: Mood normal. Behavior: Behavior normal. Thought Content: Thought content normal. Judgment: Judgment normal. Vitals and nursing note reviewed. Vitals: Estimated body mass index is 33.17 kg/m as calculated from the following: Height as of 09/17/22: 5' 3 . Weight as of this encounter: 187 lb 4 oz. BP: 110/82 No LMP recorded. Patient is . ASSESSMENT & PLAN ICD-10-CM 1. STD exposure Z20.2 SURESWAB(R) ADVANCED VAGINITIS PLUS, TMA CHLAMYDIA TRACHOMATIS (GENITO/STI) Neisseria gonorrhea DNA probe, direct 2. Second trimester Z34.92 Alpha fetoprotein, maternal Alpha fetoprotein, maternal 3. 14 weeks gestation of Z3A.14 4. Screening, , for anatomic survey Z36.89 US OB 14+ weeks anatomy scan POCT urinalysis dipstick manually resulted Return OB: Patient presents today for a routine obstetrics appointment. Patient is currently 15w0d . Patient states she is doing well but has complaints of being tired due to current . Patient has verbalizes frequent movement. Orders Placed This Encounter Procedures US OB 14+ weeks anatomy scan CHLAMYDIA TRACHOMATIS (GENITO/STI) Neisseria gonorrhea DNA probe, direct Alpha fetoprotein, maternal POCT urinalysis dipstick manually resulted Follow Up: Patient is to return to office in 4 week for routine OB appointment. Documented by ORION Spence on behalf of: ORION Spence documented in this encounter [facility] 08-08-2024 History of Present illness Narrative Reason for Appointment: Patient ID: Sydney Romero is a 28 y.o. female who presents for Routine Visit Patient presents today for Return OB appointment. MEDICATIONS Current Outpatient Medications Medication Instructions cholecalciferol (VITAMIN D-3) 5,000 Units, Oral, Daily estradiol (ESTRACE) 2 mg, 2 times daily MV-Min-Fe Fum-FA-DHA ( 1 PO) 1 each, Oral, Daily progesterone 75 mg, Daily RT ALLERGIES Allergies Allergen Reactions Azithromycin Unknown Other Reaction(s): Unknown Latex Rash Other Reaction(s): Itching Nickel Itching and Rash PROBLEMS Active Ambulatory Problems Diagnosis Date Noted No Active Ambulatory Problems Resolved Ambulatory Problems Diagnosis Date Noted No Resolved Ambulatory Problems Past Medical History: Diagnosis Date Anxiety Contraception management Dermatitis Family history of polycystic kidney Fatigue GERD (gastroesophageal reflux disease) History of medical problems Tear of medial meniscus of right knee, sequela Verruca vulgaris HISTORY PAST MEDICAL HISTORY 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 Past Medical History: Diagnosis Date Anxiety Contraception management Dermatitis Family history of polycystic kidney Fatigue GERD (gastroesophageal reflux disease) History of medical problems History of injury of dental structures over heated Tear of medial meniscus of right knee, sequela Verruca vulgaris 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 Tobacco Use Smoking status: Never Smokeless tobacco: Not on file Substance Use Topics Alcohol use: Yes Comment: Beer 1-2 times per month Drug use: Never FAMILY HISTORY Family History Problem Relation Name Age of Onset Melanoma Neg Hx SURGICAL HISTORY Past Surgical History: Procedure Laterality Date ANTERIOR CRUCIATE LIGAMENT REPAIR Right 07/28/2013 SBS INNER EAR SURGERY Tubes in ears KNEE ARTHROSCOPY W/ MENISCAL REPAIR Right 11/15/2015 medial meniscus -SBS TONSILLECTOMY REVIEW OF SYSTEMS Review of Systems: Review of Systems Constitutional: Negative. HENT: Negative. Eyes: Negative. Respiratory: Negative. Cardiovascular: Negative. Gastrointestinal: Negative. Genitourinary: Negative. Musculoskeletal: Negative. Skin: Negative. Neurological: Negative. All other systems reviewed and are negative. Hematological: Negative. Endocrine: Negative. Allergic/Immunologic: Negative. OBJECTIVE Objective: Physical Exam Constitutional: Appearance: Normal appearance. She is well-developed. Cardiovascular: Rate and Rhythm: Normal rate and regular rhythm. Pulmonary: Effort: Pulmonary effort is normal. Breath sounds: Normal breath sounds. Abdominal: General: Bowel sounds are normal. There is no distension. Palpations: Abdomen is soft. Tenderness: There is no abdominal tenderness. There is no guarding or rebound. Musculoskeletal: General: No swelling. Normal range of motion. Right lower leg: No edema. Left lower leg: No edema. Neurological: Mental Status: She is alert and oriented to person, place, and time. Skin: General: Skin is warm and dry. Psychiatric: Mood and Affect: Mood normal. Behavior: Behavior normal. Vitals and nursing note reviewed. Exam conducted with a pharmaceutical laboratory technician present. Vitals: Estimated body mass index is 32.2 kg/m as calculated from the following: Height as of 09/17/22: 5' 3 . Weight as of this encounter: 181 lb 12.8 oz. BP: 100/64 No LMP recorded. Patient is . ASSESSMENT & PLAN ICD-10-CM 1. 10 weeks gestation of Z3A.10 POCT urinalysis dipstick manually resulted 2. First trimester Z34.91 POCT urinalysis dipstick manually resulted Return OB: Patient presents today for a routine obstetrics appointment. Patient is currently 10w5d . Patient states she is doing well but has complaints of being tired due to current . Hx of IVF and will be referred to MFM at . Orders Placed This Encounter Procedures POCT urinalysis dipstick manually resulted Follow Up: Patient is to return to office in 4 week for routine OB appointment. Documented by Maria M Guerrero NP on behalf of: Layo Courtney DO documented in this encounter [facility] 07-29-2024 History of Present illness Narrative Reason for Appointment: Patient ID: Sydney Romero is a 28 y.o. female who presents for Amenorrhea Patient presents today for a Nurse OB Intake appointment. Patient is 9w2d with a Estimated Date of Delivery: 03/01/25 OB History Para Term AB Living 1 SAB IAB Ectopic Multiple Live Births # Outcome Date GA Lbr Moise/2nd Weight Sex Type Anes PTL Lv 1 Current Current Medications: has a current medication list which includes the following prescription(s): estradiol, lidocaine-prilocaine, and progesterone. Medical History: Active Ambulatory Problems Diagnosis Date Noted No Active Ambulatory Problems Resolved Ambulatory Problems Diagnosis Date Noted No Resolved Ambulatory Problems Past Medical History: Diagnosis Date Anxiety Contraception management Dermatitis Family history of polycystic kidney Fatigue GERD (gastroesophageal reflux disease) History of medical problems Tear of medial meniscus of right knee, sequela Verruca vulgaris Family History Problem Relation Name Age of Onset Melanoma Neg Hx 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 Tobacco Use Smoking status: Never Smokeless tobacco: Not on file Substance Use Topics Alcohol use: Yes Comment: Beer 1-2 times per month Drug use: Never Past Surgical History: Procedure Laterality Date ANTERIOR CRUCIATE LIGAMENT REPAIR Right 07/28/2013 SBS INNER EAR SURGERY Tubes in ears KNEE ARTHROSCOPY W/ MENISCAL REPAIR Right 11/15/2015 medial meniscus -SBS TONSILLECTOMY Allergies Allergen Reactions Azithromycin Unknown Other Reaction(s): Unknown Latex Rash Other Reaction(s): Itching Nickel Itching and Rash Vitals: Estimated body mass index is 31.18 kg/m as calculated from the following: Height as of 09/17/22: 5' 3 . Weight as of this encounter: 176 lb. BP: 118/72 No LMP recorded. Patient is . Assessment/Plan Diagnoses and all orders for this visit: Missed menses - Type and screen; Future - ABO/Rh; Future - CBC and differential - Hemoglobin A1c - RPR - Rubella antibody, IgG - Hepatitis B surface antigen - Hepatitis C antibody - HIV-1 and HIV-2 antibodies - Urine culture - POCT , urine manually resulted - POCT urinalysis dipstick manually resulted 9 weeks gestation of , unspecified gestational age - Type and screen; Future - ABO/Rh; Future - CBC and differential - Hemoglobin A1c - RPR - Rubella antibody, IgG - Hepatitis B surface antigen - Hepatitis C antibody - HIV-1 and HIV-2 antibodies - Rapid drug screen, urine; Future Encounter for supervision of normal first in first trimester - Rapid drug screen, urine; Future Nurse Note: Patient declined [employer] to one Pt is an IVF patient and currently on Progesterone injections and estrace medication daily. Pt will discuss w/Dr. Courtney when she may be able to stop both medications. OB Intake: Patient presents today for first OB visit. Patients history has been reviewed in great detail including any potential risks. Patient signed consent forms and patient desires testing in both trimesters. Patient currently has no complaints and has been advised to drink 6-8 glasses of water a day, eat no raw or undercooked meat, and stay away from [facility]. Patient has also been advised to not change litter boxes and eat 6 small meals a day. Patient has been consulted regarding the do's and don'ts of . Patient was given labs and all questions and concerns were answered. Follow Up: Patient is to return in 4 weeks for routine OB appointment. Follow Up: Patient is to have labs drawn at directed and return to office for initial OB appointment with provider. Patient may call office as needed with any concerns or questions. Nurse Visit Completed by: Marilia Elder MA documented in this encounter [facility] 07-11-2024 History of Present illness Narrative Visit Type: In Person MD reviewed, Authorization status not noted. OB Scan Ectopic risk factor: no PGTA/PGTM: yes Blood type: O Method of Conception: Frozen Embryo transfer Reviewed results from OB ultrasound today and results reviewed with pt as follows: OB Scan results: Moon . Number of embryos: 1 Da??ng Date Details Gest. age BROOKE Concep??on Concep??on: IVF Embryo Transfer Embryo transfer 06/13/2024 IVF / ET: 5 d 6 w + 5 d 03/01/2025 U/S 07/11/2024 based upon CRL 6 w + 5 d 03/01/2025 Assigned da??ng based on the IVF / ET date, selected on 07/11/2024 6 w + 5 d 03/01/2025 Assessment Gesta??onal sac: visualized. Loca??on: intrauterine Yolk sac: visualized Embryo: visualized Cardiac ac??vity: present Early placenta: circumferen??al YS 3.6 mm 6w 3d 42% Papaioannou CRL 6.2 mm 6w 5d 52% Pexsters FHR 131 bpm Maternal Structures Uterus Visualized Posi??on: anteverted Cervix Visualized Right Ovary Visualized Size 28.7 mm x 24.0 mm x 21.9 mm. Vol 7.9 cm Appearance: Normal Le?? Ovary Visualized Size 23.1 mm x 21.6 mm x 14.4 mm. Vol 3.8 cm Appearance: Normal Cul de Sac Visualized. No free fluid visualized Detailed discussion with patient about her scan results, , and next steps: Plan: Reviewed medications in detail. She will continue PNV. Reviewed supplemental progesterone, route and dose, reviewed dates of cessation. 08/09/24- last dosage Discussed with patient any concerns and discussed establishing care with an OB. Will provide recommendations if she desires. Advised to call with bleeding, pain or concerns. Ultrasound results and Plan of care reviewed with Dr. Juan Chavarria MD Fertility Plan Update: Ok to move on to OB care. Intimate Exam Performed: No, an intimate exam was not performed at this encounter. Donya Abernathy 07/11/2024 3:54 PM documented in this encounter [facility] Work Phone: 06-13-2024 History of Present illness Narrative Associated Order(s): Embryo Transfer Pre-Procedure Diagnose(s): Encounter for assisted reproductive fertility cycle Post-Procedure Diagnose(s): Encounter for assisted reproductive fertility cycle Patient ID: Sydney Romero is a 28 y.o. female. Embryo Transfer Date/Time: 06/13/2024 11:24 AM Performed by: Juan Chavarria MD Authorized by: Juan Chavarria MD Consent: Consent obtained: Written Consent given by: Patient Procedure risks and benefits discussed: yes Patient questions answered: yes Patient agrees, verbalizes understanding, and wants to proceed: yes Educational handouts given: yes Instructions and paperwork completed: yes Procedure: Pelvic exam performed: No Cervix cleaned and prepped: Yes Speculum placed in vagina: Yes Ultrasound guidance: Yes Catheter type: Sure View العلي Uterine position: Anteverted Bladder backfilling performed: No, bladder sufficiently full Uterine visualization complete: Yes Difficulty: easy Estimated blood loss: None Post-procedure: Patient tolerated procedure well: yes Comments: Preop diagnosis: Infertility Post op diagnosis: Same Photo Mask Processor: none Depth: 7 cm Curve: anterior Distance from fundus: 11 mm Embryo stage at day of transfer: day 5 Embryo notes: 4AA PGT: Result: euploid Anesthesia: None IV Fluids: None UOP: Not recorded Specimens: None Complications: None Attending Attestation: I was physically present for orozco and critical portions performed by the fellow. I reviewed the fellow's documentation and discussed the patient with the fellow. I agree with the fellow's medical decision making as documented in the fellow's note. Juan Chavarria 06/13/24 11:24 AM documented in this encounter [facility] Work Phone: 06-13-2024 Hospital Discharge instructions Tisha Sparks RN - 06/13/2024 10:43 AM EST Images from the original note were not included. [facility] [address] [place] [address] Home Going Instructions after Embryo Transfer: After completing your embryo transfer please treat your body as though you are . No smoking, alcohol, or recreational drugs. Make sure you are taking a vitamin daily. Continue all medications currently prescribed for embryo transfer until otherwise instructed by your physician, even if you experience spotting or bleeding and even if you have a negative home test. Medications to avoid in : Advil, Motrin, Ibuprofen, Aleve, Excedrin, [place], Sudafed, and Pepto-Bismol. Avoid aspirin unless you are taking this daily at the direction of your physician. Medications that are generally safe in : Tylenol, Benadryl, Plain Robitussin, Zyrtec, Claritin, Pepcid, Tums, Rolaids, Mylanta, Nasonex. Foods to avoid: Seafood that is high in mercury; you can have canned tuna twice a week. Deli meats, deli salads, hot dogs, and unpasteurized cheeses due to the risk of Listeria. Activities to avoid: No hot tubs, whirlpools, or saunas. Avoid starting new exercise routines that you have not done previously. Avoid lifting > 30 lbs. No cleaning litter boxes. No intercourse until you test for . You do not need to be on bed rest following the transfer. It is healthy, normal, and recommended to go about routine physical activity. We advise against taking a home test due to the possibility of false negative and false positive results. You will test for in approximately 10 days, at which point you will be about 4 weeks . If blood work was drawn on the day of your transfer, you can expect a phone that day with the results of your bloodwork. We expect a progesterone level greater than or equal to 16. If you level is less than 16 we will adjust your progesterone dose and repeat your level in 2 days. Tisha Sparks 10:43 AM documented in this encounter [facility] Work Phone: 06-06-2024 History of Present illness Narrative CYCLING NOTE LMP: 05/23/24 Protocol: Programmed FET Lining check: 06/06 Tentative progesterone start: 06/08 Tentative transfer date: 06/[address] Chavarria Here for US and/or lab monitoring; relevant findings reviewed. Patient stayed for nurse visit. Pain is 0/10 and Progesterone teaching completed with patient REECE sites marked. Team will contact patient later today with results and plan. Zoe Francis 06/06/2024 7:01 AM Called patient with plan. Patient will return tomorrow for e2, p4, and lining check and will start vaginal estrace now and continue BID until further instructed. Message sent to front office secretary to schedule at 8:45 slot at [place] for US and labs. ZOE FRANCIS on 06/06/24 at 1:12 PM. documented in this encounter [facility] Work Phone: 04-06-2024 Hospital Discharge instructions Patient Education 04/06/2024 15:00:07 Health Maintenance, Female Health Maintenance, Female Adopting [...] provider. Document Revised: 09/09/2021 Document Reviewed: 09/09/2021 [employer] Patient Education 2023 [employer] Follow Up Care 03/25/2024 14:07:23 With:Mallory Judd Address: When:Within 6 Month([address]) [facility] 03-22-2024 History of Present illness Narrative Associated Order(s): Egg Retrieval Pre-Procedure Diagnose(s): Encounter for assisted reproductive fertility cycle Post-Procedure Diagnose(s): Encounter for assisted reproductive fertility cycle Patient ID: Sydney Romero is a 28 y.o. female. Egg Retrieval Date/Time: 03/22/2024 9:39 AM Performed by: Juan Chavarria MD Authorized by: SMITH Barr Consent: Consent obtained: Verbal and written Consent given by: Patient Procedure risks and benefits discussed: yes Patient questions answered: yes Patient agrees, verbalizes understanding, and wants to proceed: yes Educational handouts given: yes Instructions and paperwork completed: yes Procedure: Anesthesia: MAC Pelvic exam performed: Yes Cervix cleaned and prepped: Yes Speculum placed in vagina: Yes Tenaculum applied to cervix: No Ultrasound guidance: Yes Left ovary: Follicle present Right ovary: Follicle present Pt. post-ovulatory: No Speculum type: Seda Retrieval method: transvaginal Needle inserted: Yes Ovaries aspirated: Yes Free fluid in pelvis: No Post-procedure: Patient tolerated procedure well: yes Comments: Preop diagnosis: Female infertility Post op diagnosis: Same Photo Mask Processor: Dr. Warren IV Fluids: 600 cc EBL: 5 cc UOP: Not recorded Specimen: Oocytes Complications: None Number of Oocytes right ovary: 16 Ovarian access (right): Easy Number of Oocytes left ovary: 9 Ovarian access (left): Easy Endometrial thickness: n/a Needle type: Single Additional notes: documented in this encounter [facility] Work Phone: 03-22-2024 Nurse Note Patient discharged to home in stable condition via wheelchair to RIDE HOME: Partner's car. Accompanied by RN. ABREU at time of discharge. Discharge instructions given and concerns addressed. Gisell Michel RN 03/22/24 11:08 AM [facility] Work Phone: 03-22-2024 Nurse Note Patient discharged to home in stable condition via wheelchair to RIDE HOME: Partner's car. Accompanied by RN. ABREU at time of discharge. Discharge instructions given and concerns addressed. Gisell Michel RN 03/22/24 11:08 AM documented in this encounter [facility] Work Phone: 03-22-2024 Hospital Discharge instructions Gisell Michel RN - 03/22/2024 8:45 AM EST Images from the original note were not included. [facility] [address] [place] [address] Home Going Instructions after Egg Retrieval: Activity: We do not recommend exercise on the day of or the day after your egg retrieval. You can resume normal activities in 2-3 days, but please avoid exercise that involves jumping or bouncing. If you are not having a fresh embryo transfer, you will likely start your period within 1-2 weeks and can resume all normal exercise at that time. You may resume intercourse one week after your retrieval. Anesthesia: Drink small amounts of liquids initially and then slowly increase your intake of food on the day of your procedure. Drinking fluids will keep your bowels regular. Avoid foods that are sweet, spicy or hard to digest today. If you feel nauseated, rest your stomach for one hour, and then try drinking clear liquids again. You may take a stool softener or miralax/milk of magnesia to help with constipation that may occur after anesthesia. Please make sure a responsible adult is with you for at least 24 hours after surgery and do not drive or make important decisions during this time. Anesthesia may affect your judgment, coordination, and reaction time. Follow up: ALWAYS follow up with your primary nurse a few days after your procedure to check in and make sure you know what your next steps are. When to call your provider: Vaginal bleeding that is more than a normal period that doesn't taper down within 6 hours. Saturating a sanitary pad in 1-2 hours. Any clots the size of an egg or bigger. Fever of 100.4 or higher with chills. Unusual or foul smelling discharge. Discomfort from abdominal distension. Notify your Physician's office if you develop any signs of Ovarian Hyperstimulation (OHSS): -Abdominal bloating -Rapid weight gain of 5-10 lbs. in 1-2 days -Swelling in hands and feet -Severe abdominal pain -Shortness of breath -Difficulty urinating or decreased urinary output -Diarrhea -Persistent nausea and vomiting -Dizziness These signs and symptoms can occur for up to 2 weeks following your oocyte retrieval. Call [phone] to speak with a Physician or Nurse if you have any concerns. Gisell Michel 8:45 AM [facility] [address] [place], [place] IVF LAB EMBRYO UPDATE PROTOCOL The IVF Lab will call on the following days: Retrieval Day: The doctor performing the procedure will tell you the total number of eggs collected. There will be no update from the IVF Lab on retrieval day. Day 1: The IVF Lab will call you between 9:00-11:00 with an egg fertilization update. Day 6: The IVF Lab will call you for an update on how your embryos have developed and how many have reached the blastocyst stage. Day 6/7: You will receive an email from the IVF Lab with your summary report indicating the number of embryos that were able to be frozen. If you are doing genetic testing on your embryos you will receive a phone call regarding the number of embryos biopsied and frozen. Gisell Richard Michel 8:44 AM [facility] [address]. [place] [address] Frozen Embryo Transfer Instructions After your egg retrieval, follow up with your IVF nurse within 3-4 days Thursday-Thursday regarding the plan for your frozen embryo transfer (FET) cycle. Your IVF nurse will order and review with you the medications you will be using for the cycle. You will be sent an email from [employer] to fill out your Frozen Embryo Treatment Plan at this time. This must be completed by the day you call the office with your period to set up the transfer cycle. If you do not have this paperwork completed when you call for cycle set up, you may need to take a control pill, if appropriate, or wait until your following period. Completion of this paperwork is what allows us to call your embryos back from offsite storage for embryo transfer. Please call the office on the first full flow day of your period to speak with your IVF nurse. If the first day of your cycle begins over the weekend, please call the office Thursday morning. Depending on our embryo transfer schedule and the medication protocol your doctor prescribes, you may not start your embryo transfer cycle medications immediately after your period starts. If appropriate for you, your doctor may have you start control to help time your embryo transfer cycle which means there may be a short delay in starting your FET cycle. If you did PGT testing of your embryos, you will not start a frozen embryo transfer cycle until we have received your results. It can take up to a few weeks to receive these results. If appropriate, we may have you take control from the time your period starts until the results are ready. You will be set up for a lining check ultrasound and labs mid cycle, and given a tentative embryo transfer date. You may require multiple lining checks at the discretion of your provider. After your provider determines your lining is adequate, we will determine what date you will begin your progesterone support and confirm the day of your embryo transfer. The embryology lab will contact you the day before with the time of your embryo transfer and when to arrive. Please make sure to drink 20oz. of water one hour before your scheduled arrival time. You do not need to be on bedrest following your embryo transfer. You may resume normal activity following embryo transfer. You will have your blood drawn on the day of transfer to check a progesterone level and you will receive a call that afternoon with your results. Do not discontinue any of your medications unless instructed to by your provider. Gisell Michel RN 8:44 AM documented in this encounter [facility] Work Phone: 03-20-2024 History of Present illness Narrative CYCLING NOTE - IVF Cycle #: 2 (Has 3 embryos frozen from 1st cycle) Reason For Treatment: Male Infertility Protocol: OCP lead, Antagonist 225/75 ---> 175/75 Day of stim: 9th day of meds Patient Hx: 28 year old, AMH = 1.94. Patient of Dr. Chavarria Notes: Antagonist started on 03/16 Planning PGT-A Here for US and/or lab monitoring; relevant findings reviewed. Patient stayed for nurse visit. Pain is 0/10 Team will contact patient later today with results and plan. Krissy Yanes 03/20/2024 8:02 AM IVF Lupron only trigger Patient to trigger tonight at exactly 9:15pm with 4mg (80 units/0.8 ML) Leuprolide, no other IVF meds. Pre-op, post op and trigger instruction hand outs given and reviewed. NPO after midnight night before procedure; no perfumes, deodorant or lotions. Arrive 60 minutes prior to procedure at [place] [id number]. Patient verbalizes understanding of plan and location of procedure. Patient scheduled to go to [facility] tomorrow for post trigger labs Krissy Yanes 03/20/2024 11:01 AM documented in this encounter [facility] Work Phone: 03-19-2024 History of Present illness Narrative CYCLING NOTE - IVF Cycle #: 2 (Has 3 embryos frozen from 1st cycle) Reason For Treatment: Male Infertility Protocol: OCP lead, Antagonist 225/75 ---> 175/75 Day of stim: 8th day of meds Patient Hx: 28 year old, AMH = 1.94. Patient of Dr. Chavarria Notes: Antagonist started on 03/16 Here for US and/or lab monitoring; relevant findings reviewed. Patient stayed for nurse visit. Pain is 0/10. Trigger shot instructions and day of retrieval instructions reviewed with patient. Team will contact patient later today with results and plan. Krissy Yanes 03/19/2024 8:27 AM LM and sent mychart to patient with plan. Patient told to drop FSH to 100, continue Menopur tonight and Ganirelix in the am, and return for repeat scan and labs tomorrow morning. Krissy Yanes 03/19/24 11:02 AM documented in this encounter [facility] Work Phone: 03-17-2024 History of Present illness Narrative CYCLING NOTE - IVF Cycle #: 2 (Has 3 embryos frozen from 1st cycle) Reason For Treatment: Male Infertility Protocol: OCP lead, Antagonist 225/75 ---> 175/75 Day of stim: Patient Hx: 28 year old, AMH = 1.94. Patient of Dr. Chavarria Notes: Antagonist started on 03/16 Here for US and/or lab monitoring; relevant findings reviewed. Patient did not stay for discussion after monitoring, Team will contact patient later today with results and plan. Krissy Yanes 03/17/2024 7:44 AM Called patient with plan. Patient aware to continue same doses of medications and will return on 03/19 for repeat follicle scan and labs. Patient stated she has not noticed any reaction from the Ganirelix as of yet, but will continue to monitor. She gave this injection first this morning. Patient did confirm she is planning PGT-A. Krissy Yanes 03/17/24 1:04 PM documented in this encounter [facility] Work Phone: 03-15-2024 History of Present illness Narrative IVF CYCLING NOTE IVF #2: 02/29/24 Reason For Treatment: male Protocol: Antagonist protocol, FSH 225/HMG 75 Lead in: OCP Notes: (dropped initial fsh dose) Day of stim: 4 Here for US and/or lab monitoring; relevant findings reviewed. Team will contact patient later today with results and plan. TC to pt - reviewed plan to decrease FSH dose to 175 + HMG 75 x 2 night; begin antagonist tomorrow AM and each AM until trigger. Pt states that she has enough meds at this time; no further questions. Transferred to the front office secretary to schedule appt for 03/17. Allyssa Robles 03/15/24 1:27 PM documented in this encounter [facility] Work Phone: 03-09-2024 History of Present illness Narrative FELI NOTE - IVF STIM BASELINE Patient presents for baseline ultrasound and/or labs. IVF #2: 02/29/24 Antagonist protocol, FSH 225/HMG 75 Lead in: OCP Trigger: hcg vs Lupron Pre retreival meds: antibiotics per protocol Adjuncts: none Notes: (dropped initial fsh dose) Start date for lead in: 02/27/2024 Last estrace/OCP date: 03/08/2024 PGT-A/M? Yes; Req Sent: Yes; PGT-M Test Ready: No ; Company: [email or web address] PGT order scanned into [employer], confirmed by: LORI on Plan to freeze: embryos [employer] forms/out waiver complete: Yes Does patient have medications onhand? Yes Pharmacy: Boarding pass signed off: Yes Date of Female STDs: 2023 Date of Male STDs: 2023 Medically complex on boarding pass: no If indicated, is PAT consult complete? Yes SPERM: partner Fresh with Frozen Backup Number of vials confirmed: 1 on 03/09 by delano On site at [facility] Additional details: Allyssa Robles 03/09/2024 7:50 AM TC to pt to confirm today's plan; LM; will send [facility] message. Allyssa Robles 03/09/24 2:02 PM Pt called back to confirm plan; Pt has all meds and all questions answered. She plans to purchase FET meds before the end of the year (they were ordered back in February) and will call [facility] to have them filled as she has met deductible and REECE needs a PA. Allyssa Robles 03/09/24 2:33 PM documented in this encounter [facility] Work Phone: 02-23-2024 Nurse Note Patient discharged to home in stable condition via wheelchair accompanied by this RN to RIDE HOME: Partner's car. Discharge instructions given and concerns addressed. Patient verbalizes understanding of all information provided and is agreeable. [facility] 02-23-2024 Nurse Note Patient discharged to home in stable condition via wheelchair accompanied by this RN to RIDE HOME: Partner's car. Discharge instructions given and concerns addressed. Patient verbalizes understanding of all information provided and is agreeable. Patient up to bathroom independently, no complaints of pain or dizziness, able to void without issue, reports scant amount of bleeding. documented in this encounter [facility] Work Phone: 02-23-2024 Nurse Note Patient up to bathroom independently, no complaints of pain or dizziness, able to void without issue, reports scant amount of bleeding. [facility] Work Phone: 02-23-2024 History of Present illness Narrative Associated Order(s): Egg Retrieval Pre-Procedure Diagnose(s): Encounter for assisted reproductive fertility cycle Post-Procedure Diagnose(s): Encounter for assisted reproductive fertility cycle Patient ID: Sydney Romero is a 28 y.o. female. Egg Retrieval Date/Time: 02/23/2024 9:21 AM Performed by: Juan Chavarria MD Authorized by: Beth Warren MD Consent: Consent obtained: Verbal and written Consent given by: Patient Procedure risks and benefits discussed: yes Patient questions answered: yes Patient agrees, verbalizes understanding, and wants to proceed: yes Educational handouts given: yes Instructions and paperwork completed: yes Procedure: Anesthesia: MAC Pelvic exam performed: Yes Cervix cleaned and prepped: Yes Speculum placed in vagina: Yes Tenaculum applied to cervix: No Ultrasound guidance: Yes Left ovary: Follicle present Right ovary: Follicle present Pt. post-ovulatory: No Speculum type: Seda Retrieval method: transvaginal Needle inserted: Yes Ovaries aspirated: Yes Free fluid in pelvis: No Post-procedure: Patient tolerated procedure well: yes Comments: Preop diagnosis: Female infertility Post op diagnosis: Same Photo Mask Processor: none IV Fluids: 500 cc EBL: 5 cc UOP: Not recorded Specimen: Oocytes Complications: None Number of Oocytes right ovary: 17 Ovarian acc ss (right): Easy Number of Oocytes left ovary: 13 Ovarian access (left): Easy Endometrial thickness: n/a Needle type: Single Additional notes: documented in this encounter [facility] Work Phone: 02-23-2024 Hospital Discharge instructions Donya Rosas RN - 02/23/2024 7:23 AM EDT Images from the original note were not included. [address] [place] [address] Home Going Instructions after Egg Retrieval: Activity: We do not recommend exercise on the day of or the day after your egg retrieval. You can resume normal activities in 2-3 days, but please avoid exercise that involves jumping or bouncing. If you are not having a fresh embryo transfer, you will likely start your period within 1-2 weeks and can resume all normal exercise at that time. You may resume intercourse one week after your retrieval. Anesthesia: Drink small amounts of liquids initially and then slowly increase your intake of food on the day of your procedure. Drinking fluids will keep your bowels regular. Avoid foods that are sweet, spicy or hard to digest today. If you feel nauseated, rest your stomach for one hour, and then try drinking clear liquids again. You may take a stool softener or miralax/milk of magnesia to help with constipation that may occur after anesthesia. Please make sure a responsible adult is with you for at least 24 hours after surgery and do not drive or make important decisions during this time. Anesthesia may affect your judgment, coordination, and reaction time. Follow up: ALWAYS follow up with your primary nurse a few days after your procedure to check in and make sure you know what your next steps are. When to call your provider: Vaginal bleeding that is more than a normal period that doesn't taper down within 6 hours. Saturating a sanitary pad in 1-2 hours. Any clots the size of an egg or bigger. Fever of 100.4 or higher with chills. Unusual or foul smelling discharge. Discomfort from abdominal distension. Notify your Physician's office if you develop any signs of Ovarian Hyperstimulation (OHSS): -Abdominal bloating -Rapid weight gain of 5-10 lbs. in 1-2 days -Swelling in hands and feet -Severe abdominal pain -Shortness of breath -Difficulty urinating or decreased urinary output -Diarrhea -Persistent nausea and vomiting -Dizziness These signs and symptoms can occur for up to 2 weeks following your oocyte retrieval. Call [phone] to speak with a Physician or Nurse if you have any concerns. DONYA ROSAS 7:23 AM [facility] [address] [place], [place] IVF LAB EMBRYO UPDATE PROTOCOL The IVF Lab will call on the following days: Retrieval Day: The doctor performing the procedure will tell you the total number of eggs collected. There will be no update from the IVF Lab on retrieval day. Day 1: The IVF Lab will call you between 9:00-11:00 with an egg fertilization update. Day 6: The IVF Lab will call you for an update on how your embryos have developed and how many have reached the blastocyst stage. Day 6/7: You will receive an email from the IVF Lab with your summary report indicating the number of embryos that were able to be frozen. If you are doing genetic testing on your embryos you will receive a phone call regarding the number of embryos biopsied and frozen. DONYA ROSAS 7:23 AM [facility] [address] [place], [place] IVF LAB EMBRYO UPDATE PROTOCOL The IVF Lab will call on the following days: Retrieval Day: The doctor performing the procedure will tell you the total number of eggs collected. There will be no update from the IVF Lab on retrieval day. Day 1: The IVF Lab will call you between 9:00-11:00 with an egg fertilization update. Day 6: The IVF Lab will call you for an update on how your embryos have developed and how many have reached the blastocyst stage. Day 6/7: You will receive an email from the IVF Lab with your summary report indicating the number of embryos that were able to be frozen. If you are doing genetic testing on your embryos you will receive a phone call regarding the number of embryos biopsied and frozen. DONYA ROSAS 7:23 AM [facility] [address] [place] [address] Frozen Embryo Transfer Instructions After your egg retrieval, follow up with your IVF nurse within 3-4 days Thursday-Thursday regarding the plan for your frozen embryo transfer (FET) cycle. Your IVF nurse will order and review with you the medications you will be using for the cycle. You will be sent an email from [employer] to fill out your Frozen Embryo Treatment Plan at this time. This must be completed by the day you call the office with your period to set up the transfer cycle. If you do not have this paperwork completed when you call for cycle set up, you may need to take a control pill, if appropriate, or wait until your following period. Completion of this paperwork is what allows us to call your embryos back from offsite storage for embryo transfer. Please call the office on the first full flow day of your period to speak with your IVF nurse. If the first day of your cycle begins over the weekend, please call the office Thursday morning. Depending on our embryo transfer schedule and the medication protocol your doctor prescribes, you may not start your embryo transfer cycle medications immediately after your period starts. If appropriate for you, your doctor may have you start control to help time your embryo transfer cycle which means there may be a short delay in starting your FET cycle. If you did PGT testing of your embryos, you will not start a frozen embryo transfer cycle until we have received your results. It can take up to a few weeks to receive these results. If appropriate, we may have you take control from the time your period starts until the results are ready. You will be set up for a lining check ultrasound and labs mid cycle, and given a tentative embryo transfer date. You may require multiple lining checks at the discretion of your provider. After your provider determines your lining is adequate, we will determine what date you will begin your progesterone support and confirm the day of your embryo transfer. The embryology lab will contact you the day before with the time of your embryo transfer and when to arrive. Please make sure to drink 20oz. of water one hour before your scheduled arrival time. You do not need to be on bedrest following your embryo transfer. You may resume normal activity following embryo transfer. You will have your blood drawn on the day of transfer to check a progesterone level and you will receive a call that afternoon with your results. Do not discontinue any of your medications unless instructed to by your provider. DONYA ROSAS RN 7:32 AM documented in this encounter [facility] Work Phone: 02-21-2024 History of Present illness Narrative CYCLING NOTE Cycle #: 1 Reason For Treatment: Male Infertility Protocol: OCP lead, Antagonist FSH 250/HMG 75 Day of stim: Back after 7 days of meds Patient Hx: 28 years old, AMH = 1.94 Notes: Patient of Dr. Chavarria, planning PGT-A Here for US and/or lab monitoring; relevant findings reviewed. Patient stayed for nurse visit. Pain is 0/10 Team will contact patient later today with results and plan. *may only want to biopsy some embryos, told pt to discuss this at retrieval when filling out the pre retrieval treatment plan, will send message to lab Reviewed lupron trigger and trigger/retrieval instructions. Scheduled for post trigger labs for tomorrow. Beth Judge 02/21/2024 9:09 AM documented in this encounter [facility] Work Phone: 02-20-2024 History of Present illness Narrative CYCLING NOTE- IVF Cycle #: 1 Reason For Treatment: Male Infertility Protocol: OCP lead, Antagonist FSH 250/HMG 75 Day of stim: Back after 7 days of meds Patient Hx: 28 years old, AMH = 1.94 Notes: Patient of Dr. Chavarria, planning PGT-A Here for US and/or lab monitoring; relevant findings reviewed. Patient stayed for nurse visit. Pain is 0/10 Team will contact patient later today with results and plan. Scheduled pt for tomorrow, discussed probable trigger tomorrow for retrieval Thursday. Beth Judge 02/20/2024 9:15 AM MyChart with plan, will drop to 125 units daily of gonal f, others stay the same, will come back tomorrow with likely trigger tomorrow. 02/20/24 at 10:52 AM - Beth Judge RN documented in this encounter [facility] Work Phone: 02-18-2024 History of Present illness Narrative CYCLING NOTE - IVF Cycle #: 1 Reason For Treatment: Male Infertility Protocol: OCP lead, Antagonist FSH 250/HMG 75 Day of stim: Back after 5 days of meds Patient Hx: 28 years old, AMH = 1.94 Notes: Patient of Dr. Chavarria, planning PGT-A Here for US and/or lab monitoring; relevant findings reviewed. Patient stayed for nurse visit. Pain is 0/10 Team will contact patient later today with results and plan. Patient scheduled to return on Thursday for US and labs, has both triggers at home, aware she may trigger this weekend. Beth Judge 02/18/2024 8:49 AM MyChart to patient with plan, will drop gonal f to 150, and return Thursday. 02/18/24 at 1:11 PM - Beth Judge RN documented in this encounter [facility] Work Phone: 02-16-2024 History of Present illness Narrative CYCLING NOTE - IVF Cycle #: 1 Reason For Treatment: Male Infertility Protocol: OCP lead, Antagonist FSH 250/HMG 75 Day of stim: Back after 3 days of meds Patient Hx: 28 years old, AMH = 1.94 Notes: Patient of Dr. Chavarria, planning PGT-A Here for US and/or lab monitoring; relevant findings reviewed. Patient stayed for nurse visit. Pain is 0/10. Patient had multidose Gonal-F vial, and syringes do not have accurate line depiction for 250 units. Will look into getting insulin syringes from [facility]. Team will contact patient later today with results and plan. Krissy Yanes 02/16/2024 7:27 AM LM with patient with plan to start Cetrotide today, drop FSH to 225 units and continue Menopur 75 units. Patient is already scheduled for 02/17 for repeat follicle scan and e2. Krissy Yanes 02/16/24 1:34 PM documented in this encounter [facility] Work Phone: 02-09-2024 History of Present illness Narrative HUDDLE NOTE - IVF STIM BASELINE Patient presents for baseline ultrasound and/or labs. 28 y.o., pt of DR Chavarria's Dx male - oligospermia; seeing DR Hyatt Protocol/Fertility Plan Update: Lead in: OCP Stimulation protocol: Antagonist, FSH 250/HMG 75 Trigger plan: HCG vs Lupron Pre-retrieval meds: Antibiotics per protocol Adjuncts: none Start date for lead in: 01/25/2024 Last estrace/OCP date: 02/09/2024 PGT-A/M? Yes; Req Sent: Yes; PGT-M Test Ready: No /A; Company: [email or web address] PGT order scanned into [employer], confirmed by: LORI on 02/09/2024 Plan to freeze: embryos [employer] forms/out waiver complete: Yes Does patient have medications onhand? Yes Pharmacy: [facility] Boarding pass signed off: Yes LORETTA on 02/05/2024 Date of Female STDs: 2023 Date of Male STDs: 2023 Medically complex on boarding pass: no If indicated, is PAT consult complete? N/A SPERM: [employer] with Frozen Backup Number of vials confirmed: 1 on 02/09/24 by LORETTA Additional details: Allyssa Robles 02/09/2024 7:34 AM Beti Warren 02/09/24 12:44 PM TC to inge Degroot answered; confirmed plan for meds to start on 02/12 as per calendar and return on 02/15 as scheduled; no further questions. Allyssa Robles 02/09/24 1:16 PM documented in this encounter [facility] Work Phone: 01-28-2024 Nurse Note Patient discharged to home in stable condition via wheelchair to RIDE HOME: Partner's car. Discharge instructions given and concerns addressed. [facility] Work Phone: 01-28-2024 Nurse Note Patient discharged to home in stable condition via wheelchair to RIDE HOME: Partner's car. Discharge instructions given and concerns addressed. documented in this encounter [facility] Work Phone: 01-28-2024 History of Present illness Narrative IVF Procedure Area H&P Ms. Sydney Romero is a 28 y.o. F who presents for hysteroscopic polypectomy under anesthesia. Interval history reviewed and affirmed as up to date. MedHx: Past Medical History: Diagnosis Date Infertility, female SurgHx: Past Surgical History: Procedure Laterality Date KNEE SURGERY Right 2014 and 2017 TONSILLECTOMY 2007 Meds: Current Outpatient Medications on File Prior to Encounter Medication Sig Dispense Refill norgestimate-ethinyl estradioL (Ortho-Cyclen) 0.25-35 mg-mcg tablet Take 1 tablet by mouth once daily. Take active pills only as directed per provider 28 tablet 2 norgestimate-ethinyl estradioL (Ortho-Cyclen) 0.25-35 mg-mcg tablet Take 1 tablet by mouth once daily. Take active pills only as directed per provider 28 tablet 2 No current facility-administered medications on file prior to encounter. Allergies: Allergies Allergen Reactions Latex Rash Nickel Rash ROS: negative apart from what is indicated above PE: Gen: AA x 3 Resp: No labored breathing Abdomen: soft, non-tender, non-distended A/P: Ms. Sydney Romero is a 28 y.o. F who presents for above procedure under anesthesia in the IVF procedure area. Okay to proceed with above stated procedure. Leigh Ann Tuttle Associated Order(s): Polypectomy Pre-Procedure Diagnose(s): Endometrial polyp Post-Procedure Diagnose(s): Endometrial polyp Images from the original note were not included. Patient ID: Sydney Romero is a 28 y.o. female. Polypectomy Date/Time: 01/28/2024 9:29 AM Performed by: Leigh Ann Tuttle MD Authorized by: Juan Chavarria MD Consent: Consent obtained: Written Consent given by: Patient Risks discussed: Bleeding, infection and pain Pre-procedure details: Skin preparation: Povidone-iodine Sedation: Sedation type: Moderate sedation Anesthesia: Anesthesia method: None Procedure specific details: Patient was taken to the OR, placed on the operative table in dorsolithotomy position. Patient was prepped and draped in the usual fashion. A sterile speculum was placed into the patient's vagina and cervix was grasped anteriorly with a single-toothed tenaculum. The Aveta hysteroscope was inserted through the cervix, into the uterine cavity where the polyp was seen on the posterior wall of the lower uterine segment. The hysteroscope was used to remove the polyp completely. Inspection, at this point, of endometrial cavity revealed that both ostia were able to be seen on panorama. There was no evidence at any point of uterine perforation. The hysteroscope was removed and good hemostasis was noted. All equipment was removed from the vaginal vault. Patient tolerated the procedure well and was taken to the PACU in stable condition. Signature: Leigh Ann Tuttle MD Date: January 28, 2024 Time: 9:30 AM Post-procedure details: Procedure completion: Tolerated well, no immediate complications documented in this encounter [facility] Work Phone: 01-28-2024 Hospital Discharge instructions Ira Lopez RN - 01/28/2024 8:20 AM EDT Images from the original note were not included. [facility] [address] [place] [id number] Home Going Instructions after Polypectomy: Activity: We do not recommend any exercise on the day of your polypectomy. You may return to work the following day. You may have light bleeding or spotting for several days after polypectomy. Use only sanitary pads for bleeding, do not use tampons until you have no further bleeding. Please abstain from intercourse until you have no further bleeding. Anesthesia: Drink small amounts of liquids initially and then slowly increase your intake of food. Drinking fluids will keep your bowels regular. Avoid foods that are sweet, spicy or hard to digest today. If you feel nauseated, rest your stomach for one hour, and then try drinking clear liquids again. You may take a stool softener or miralax/milk of magnesia to help with constipation that may occur after anesthesia. Please make sure a responsible adult is with you for at least 24 hours after surgery and do not drive or make important decisions during this time. Anesthesia may affect your judgment, coordination, and reaction time. Pain: If you experience any post-op pain, pain can be managed by taking Ibuprofen and/or Tylenol. Follow up: Follow up with your primary nurse a few days after your procedure to check in and make sure you know what your next steps are. A post-operative visit with your physician is not necessary after polypectomy. When to call your provider: Vaginal bleeding that is more than a normal period that doesn't taper down. Bleeding through 1 sanitary pad an hour. Any clots the size of an egg or bigger. Fever of 100.4 or higher with chills. Unusual or foul smelling discharge. Worsening abdominal pain. Ira Lopez 8:20 AM documented in this encounter [facility] Work Phone: 01-14-2024 History of Present illness Narrative Reason for Appointment: Patient ID: Sydney Romero is a 28 y.o. female who presents for Well Women Visit Patient presents today for Annual Exam. MEDICATIONS No current outpatient medications ALLERGIES Allergies Allergen Reactions Azithromycin Unknown Other Reaction(s): Unknown Nickel Itching Latex Rash Other Reaction(s): Itching PROBLEMS Active Ambulatory Problems Diagnosis Date Noted No Active Ambulatory Problems Resolved Ambulatory Problems Diagnosis Date Noted No Resolved Ambulatory Problems Past Medical History: Diagnosis Date Anxiety Contraception management Dermatitis Family history of polycystic kidney Fatigue GERD (gastroesophageal reflux disease) History of medical problems Tear of medial meniscus of right knee, sequela Verruca vulgaris HISTORY PAST MEDICAL HISTORY 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 Past Medical History: Diagnosis Date Anxiety Contraception management Dermatitis Family history of polycystic kidney Fatigue GERD (gastroesophageal reflux disease) History of medical problems History of injury of dental structures over heated Tear of medial meniscus of right knee, sequela Verruca vulgaris 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 Tobacco Use Smoking status: Never Smokeless tobacco: Not on file Substance Use Topics Alcohol use: Yes Comment: Beer 1-2 times per month Drug use: Never FAMILY HISTORY Family History Problem Relation Name Age of Onset Melanoma Neg Hx SURGICAL HISTORY Past Surgical History: Procedure Laterality Date ANTERIOR CRUCIATE LIGAMENT REPAIR Right 07/28/2013 [facility] INNER EAR SURGERY Tubes in ears KNEE ARTHROSCOPY W/ MENISCAL REPAIR Right 11/15/2015 medial meniscus -SBS TONSILLECTOMY REVIEW OF SYSTEMS Review of Systems: Review of Systems Constitutional: Negative. HENT: Negative. Eyes: Negative. Respiratory: Negative. Cardiovascular: Negative. Gastrointestinal: Negative. Genitourinary: Negative. Musculoskeletal: Negative. Skin: Negative. Neurological: Negative. All other systems reviewed and are negative. Hematological: Negative. Endocrine: Negative. Allergic/Immunologic: Negative. OBJECTIVE Objective: Physical Exam Constitutional: Appearance: Normal appearance. She is well-developed. Genitourinary: Vulva normal. Right Adnexa: not tender and no mass present. Left Adnexa: not tender and no mass present. No cervical discharge. Breasts: Breasts are soft. Right: Normal. Left: Normal. HENT: Head: Normocephalic. Nose: Nose normal. Mouth/Throat: Mouth: Mucous membranes are moist. Cardiovascular: Rate and Rhythm: Normal rate and regular rhythm. Pulmonary: Effort: Pulmonary effort is normal. Breath sounds: Normal breath sounds. Abdominal: General: Bowel sounds are normal. There is no distension. Palpations: Abdomen is soft. Tenderness: There is no abdominal tenderness. There is no guarding or rebound. Musculoskeletal: General: No swelling. Normal range of motion. Cervical back: Normal range of motion. Right lower leg: No edema. Left lower leg: No edema. Neurological: General: No focal deficit present. Mental Status: She is alert and oriented to person, place, and time. Skin: General: Skin is warm and dry. Psychiatric: Mood and Affect: Mood normal. Behavior: Behavior normal. Vitals and nursing note reviewed. Exam conducted with a pharmaceutical laboratory technician present. Vitals: Estimated body mass index is 29.43 kg/m as calculated from the following: Height as of 09/17/22: 5' 3 . Weight as of this encounter: 166 lb 1.9 oz. BP: 120/70 Patient's last menstrual period was 12/30/2023. ASSESSMENT & PLAN ICD-10-CM 1. Well woman exam with routine gynecological exam Z01.419 Pap Smear Annual Exam: Patient presents today for an annual exam. Patient states she is doing well and has no complaints. Pap was obtained without difficulty. Follow Up: Patient is to return in one year for annual unless needed otherwise. Documented by Cassy Licea LPN on behalf of: ORION Spence documented in this encounter [facility] 12-28-2023 History of Present illness Narrative Visit Type: In Person IVF Note Sydney is a 28 y.o. 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 Hyatt) LMP: Patient's last menstrual period was 12/27/2023 (exact date). AMH: 2.01 Status of fallopian tubes: patent on outside HSG Saline Ultrasound: outside SIS suggests the presence of a polyp, otherwise normal cavity PRIOR EVALUATION / TREATMENT Saw KELSY physician in [facility] Dr. Vergara Was told needed IVF, oligospermia Hysterosalpingogram: 2023, bilateral tubal patency Saline Infused Sonography: 07/2023, normal uterine cavity small uterine polyp noted (not removed as of yet) [employer] Pelvic Ultrasound: 07/2023 AMH 2.01 Relationship Status: x 2 years OB Hx G0 OB History 0 Para 0 Term 0 0 AB 0 Living 0 SAB 0 IAB 0 Ectopic 0 Multiple 0 Live Births 0 [employer] HISTORY History of STD or PID: No LMP: Patient's last menstrual period was 12/01/2023 (exact date). Last pap smear: No results found for: FINALINTERP Dr. Courtney 2 years ago, normal per pt no record for review History of abnormal paps: No History of abnormal mammogram: No Date of last Mammogram : no, n/a, no breast concerns, no family hx of breast cancer Coitus: every other day x/fertile week Pain with intercourse, bowel movements or full bladder: No Pelvic pain: No MENSTRUAL HISTORY: Menarche: 13 years old Contraception: cOCP, has not taken for 2 years Cycle length: Q 28 days never skips menses Bleeding length: 5 days Flow : Average Dysmenorrhea: Yes moderate cramps ENDOCRINE HISTORY Nipple Discharge: No Vision changes: No Headaches: No Excess hair growth: No Acne: Yes chin Oily skin:No Recent weight change: No Significant exercise history: No History of eating disorder: No PMH Cluster/tension headaches (primary care doctor manages) MEDICATIONS Medication for headaches but does not remember name PSH Tonsilectomy 2 ACL repair surgeries PSYCH HISTORY Past psych history: No Prior hospitalization for mental health disorder: No 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 Tobacco Use Smoking status: Never Smokeless tobacco: Never Substance Use Topics Alcohol use: Yes Comment: Occassionally Drug use: Never History of incarceration: No History of domestic violence: No History of incest or rape: No PARTNER HISTORY Partner: Name: Zane Romero : 05/16/98 Occupation: Prior fertility history: none PMH: none PSH: none Past psych history: No Prior hospitalization for mental health disorder: No History of reproductive injuries or surgeries:: No Smoking: No Alcohol Use: Yes social once per month Drug Use: No History of incarceration: No Medications: none History of STD: No History of testosterone use: No History of reproductive anomalies: No Prior Semen Analysis completed? Yes oligospermia VITALS: BP 119/81 (BP Location: Right arm, Patient Position: Sitting, BP Cuff Size: Adult) Pulse 62 Ht 1.6 m (5' 3 ) Wt 77.1 kg (170 lb) LMP 12/27/2023 (Exact Date) BMI 30.11 kg/m BMI: BMI Readings from Last 1 Encounters: 12/28/23 30.11 kg/m GEN: alert and oriented, cooperative, no distress, appears stated age Psych: Exhibits appropriate mood and judgement. 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 Indication for IVF: Male infertility Partner SA: Oligospermia, following with Dr. Hyatt We reviewed IVF and discussed the following: In-vitro fertilization and embryo transfer Stimulation protocols Oocyte retrieval, risks Cryopreservation Assessment of fertilization Embryo development Statistics ICSI/Assisted hatching Embryo transfer and preparation Risks of OHSS and multiple gestation Cancelled cycles Use of control Selective reduction Number of embryos to transfer Ectopic and miscarriage Team based care Informed consent procedures Folic acid supplementation Genetic carrier screening PGT Frozen tissue storage and transport process Discussed that pap and mammogram must be updated per ACOG guidelines before treatment can begin ART Cycle Plan 1. Protocol/Fertility Plan Update: PLAN PENDING follow up with Dr. Hyatt, ADPKD follow up testing, recommendations from genetics Lead in: OCP Stimulation protocol: Antagonist, FSH 250/HMG 75 Trigger plan: HCG vs Lupron Pre-retrieval meds: Antibiotics per protocol Adjuncts: none Notes: 2. FET: Protocol: Programmed Adjuncts: none OCP candidate: Yes Notes: 3. Insemination: Sperm source: partner Sperm collection method: Fresh with Frozen Backup Notes: ICSI: Yes # of oocytes to be fertilized: all 4. Transfer: Number of embryos to replace: 1 Stage of embryo transfer: day 5 Trial transfer needed? No 5. Cryopreservation plan PGT: will consider PGT A Freeze all? Yes Oocyte cryopreservation: No 6. Patient willing to accept blood transfusion: Yes 7. RN to review chart, initiate IVF boarding pass, and assure completion of the following prior to proceeding with IVF stimulation: No orders of the defined types were placed in this encounter. STDs (Hepatitis B, Hepatitis C, HIV, Syphilis, GC/CT) for patient and partner (if applicable) to be completed within the last year (z11.3) Genetic carrier testing: waiver or carrier screen completed with clearance documentation by provider for both patient and partner (z13.71) Rubella and varicella to be completed within the last five years (z11.59) TSH to be completed within the last year (z13.29) Type & Screen to be completed within the last year (z01.83) AMH to be completed within the last year (z31.41) Pre-IVF Imaging: Reference any orders placed by provider. Cavity evaluation: hysteroscopy Frozen sperm sample: ensure frozen partner sample (z31.41) or verify donor sperm on site prior to stimulation start date. Verify in EMR or obtain copy of patient s last mammogram (if applicable) and pap smear results for provider review in boarding pass. Enroll in Engaged MD and complete annual consent forms for IVF and cryotransport agreements. BMI checklist for BMI <18 or >40 Consults: Nursing and Financial Consult. PAT Consult: No Ectopic Risk: No Medically Complex: No Additional consults Genetics consult and review what is in the boarding pass. Juan Chavarria 12/28/2023 10:39 AM documented in this encounter [facility] Work Phone: 2023 History of Present illness Narrative Visit Type: In Person NEW FERTILITY PATIENT VISIT Referred by: insurance referral Accompanied today by: spouse Sydney Romero is a 27 y.o. female who presents with Infertility TTC x 2 years PRIOR EVALUATION / TREATMENT Saw [facility] physician in [facility] Dr. Vergara Was told needed IVF, oligospermia Hysterosalpingogram: 2023, bilateral tubal patency Saline Infused Sonography: 07/2023, normal uterine cavity small uterine polyp noted (not removed as of yet) [employer] Pelvic Ultrasound: 07/2023 AMH 2.01 Prior Labs Lab Results Date Done AMH: No results found for requested labs within last 1825 days. No results found for requested labs within last 1825 days. TSH: No results found for requested labs within last 1825 days. No results found for requested labs within last 1825 days. PRL: No results found for requested labs within last 1825 days. No results found for requested labs within last 1825 days. Testosterone: No results found for requested labs within last 1825 days. No results found for requested labs within last 1825 days. DHEAS: No results found for requested labs within last 1825 days. No results found for requested labs within last 1825 days. FSH: No results found for requested labs within last 1825 days. No results found for requested labs within last 1825 days. 17 OHP: No results found for requested labs within last 1825 days. No results found for requested labs within last 1825 days. HgbA1c: No results found for requested labs within last 1825 days. No results found for requested labs within last 1825 days. Hepatitis B surface antigen: No results found for requested labs within last 1825 days. No results found for requested labs within last 1825 days. Hepatitis C antibody: No results found for requested labs within last 1825 days. No results found for requested labs within last 1825 days. HIV Antigen Antibody screen with reflex: No results found for requested labs within last 1825 days. No results found for requested labs within last 1825 days. Syphilis screening with reflex: No results found for requested labs within last 1825 days. No results found for requested labs within last 1825 days. GC: No results found for requested labs within last 1825 days. No results found for requested labs within last [address]: No results found for requested labs within last 1825 days. No results found for requested labs within last 1825 days. Type and Screen: No results found for requested labs within last 1825 days. No results found for requested labs within last 1825 days. Rh: No results found for requested labs within last 1825 days. No results found for requested labs within last 1825 days. Antibody: No results found for requested labs within last 1825 days. No results found for requested labs within last 1825 days. Rubella: No results found for requested labs within last 1825 days. No results found for requested labs within last 1825 days. Varicella: No results found for requested labs within last 1825 days. No results found for requested labs within last 1825 days. Hemoglobin: No results found for requested labs within last 1825 days. No results found for requested labs within last 1825 days. Hematocrit: No results found for requested labs within last 1825 days. No results found for requested labs within last 1825 days. Creatinine: No results found for requested labs within last 1825 days. No results found for requested labs within last 1825 days. AST:No results found for requested labs within last 1825 days. No results found for requested labs within last 1825 days. ALT:No results found for requested labs within last 1825 days.: No results found for requested labs within last 1825 days. Relationship Status: x 2 years OB Hx G0 OB History 0 Para 0 Term 0 0 AB 0 Living 0 SAB 0 IAB 0 Ectopic 0 Multiple 0 Live Births 0 [employer] HISTORY History of STD or PID: No LMP: Patient's last menstrual period was 12/01/2023 (exact date). Last pap smear: No results found for: FINALINTERP Dr. Courtney 2 years ago, normal per pt no record for review History of abnormal paps: No History of abnormal mammogram: No Date of last Mammogram : no, n/a, no breast concerns, no family hx of breast cancer Coitus: every other day x/fertile week Pain with intercourse, bowel movements or full bladder: No Pelvic pain: No MENSTRUAL HISTORY: Menarche: 13 years old Contraception: cOCP, has not taken for 2 years Cycle length: Q 28 days never skips menses Bleeding length: 5 days Flow : Average Dysmenorrhea: Yes moderate cramps ENDOCRINE HISTORY Nipple Discharge: No Vision changes: No Headaches: No Excess hair growth: No Acne: Yes chin Oily skin:No Recent weight change: No Significant exercise history: No History of eating disorder: No PMH Cluster/tension headaches (primary care doctor manages) MEDICATIONS Medication for headaches but does not remember name PSH Tonsilectomy 2 ACL repair surgeries PSYCH HISTORY Past psych history: No Prior hospitalization for mental health disorder: No 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 Tobacco Use Smoking status: Never Smokeless tobacco: Never Substance Use Topics Alcohol use: Yes Comment: Occassionally Drug use: Never History of incarceration: No History of domestic violence: No History of incest or rape: No PARTNER HISTORY Partner: Name: Zane Romero : 05/16/98 Occupation: Prior fertility history: none PMH: none PSH: none Past psych history: No Prior hospitalization for mental health disorder: No History of reproductive injuries or surgeries:: No Smoking: No Alcohol Use: Yes social once per month Drug Use: No History of incarceration: No Medications: none History of STD: No History of testosterone use: No History of reproductive anomalies: No Prior Semen Analysis completed? Yes oligospermia FAMILY HISTORY No family history on file. Family History of Blood Clots: No Family history of breast, ovary, colon, endometrial cancer: No GENETIC HISTORY Ethnic background patient: Ethnic background partner: Genetic Disease in Family: Polycystic Kidney disease Defects in Family: No Genetic screening performed previously: pt was NEGATIVE for polycystic kidney disease, Had Carrier screening through Dr. Vergara was INVITAE pt and partner both positive but no apparent concordance, recommend genetic counseling BMI: BMI Readings from Last 1 Encounters: 12/11/23 29.23 kg/m VITALS: BP 122/67 (BP Location: Right arm, Patient Position: Sitting, BP Cuff Size: Adult) Pulse 72 Ht 1.6 m (5' 3 ) Wt 74.8 kg (165 lb) LMP 12/01/2023 (Exact Date) BMI 29.23 kg/m LMP: Patient's last menstrual period was 12/01/2023 (exact date). 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 Partner SA: Oligospermia COUNSELING We discussed causes of infertility including hormonal, egg quality issues, structural problems such as endometriosis, adhesions, or tubal problems, uterine factors such as polyps or fibroids, and sperm issues. Reviewed evaluation of such as well. We discussed various methods for achieving in some detail including, ovulation induction, insemination, superovulation and IVF. Discussed treatment of male factor infertility, discussed evaluation/treatment with Dr. Anderson. Discussed IUI vs IVF. Pt and partner prefer to proceed with IVF. Recommend Male Vitamins for Oligospermia Discussed as follows: Co-Q10 200 mg daily L-Carnitine 200-500 mg daily Vitamin C 500 mg daily Recommend Consult with Dr. Meyer [phone] Recommend repeat SA with 48-72 hours abstinence Recommend Female Vitamins: vitamin Vitamin D (total of 2,000 international units daily) CoQ10 600 mg daily Routine Testing [facility]ertility Center STDs Within 1 year Genetic carrier Waiver/Completed T&S Within 1 year AMH Within 1 year TSH Within 1 year Rubella/Varicella Within [address] [facility] CBC Within 1 year CMP Within 1 year HgbA1c Within 1 year Mag, Phos, Vit D <18 Within 1 year MFM > 40 REQ Wt loss consult > 40 OPT PLAN Orders Placed This Encounter Procedures Type And Screen Rubella Antibody, Igg Varicella Zoster Antibody, Igg Hepatitis B surface antigen Hepatitis C Antibody HIV 1/2 Antigen/Antibody Screen with Reflex to Confirmation Syphilis Screen with Reflex C. Trachomatis / N. Gonorrhoeae, Amplified Detection GENETIC SCREENING PATIENT Completed previously PARTNER Yes Semen Analysis: Ordered Yes Genetic screening: Ordered FOLLOW UP Consults: Genetic consult: indicationreview carrier screening results and family hx of Polycystic kidney disease and Financial consult Chart to primary nurse for care coordination and patient check list/education Enroll in Engaged MD Take vitamins, vitamin D 2000 IUs daily Discussed that pap and mammogram must be updated per ACOG guidelines before treatment can begin Discussed that treatment cannot proceed until checklist items are complete 6 week follow up with MD for IVF CONSULT Additional testing for BMI < 18 or > 40: No NA MD Completion: Ectopic Risk: No Medically Complex: No Trish Thorpe 2023 8:52 AM documented in this encounter [facility] Work Phone: 2023 Instructions SMITH Mina - 2023 8:45 AM EDT Recommend Male Vitamins Discussed as follows: Co-Q10 200 mg daily L-Carnitine 200-500 mg daily Vitamin C 500 mg daily Recommend Consult with Dr. Meyer [phone] Recommend repeat SA with 48-72 hours abstinence Recommend Female Vitamins: vitamin Vitamin D (total of 2,000 international units daily) CoQ10 600 mg daily documented in this encounter [facility] Work Phone: 10-02-2023 Hospital Discharge instructions Patient Education 10/02/2023 12:54:19 Obesity, Adult [...] food choices, such as grocery stores and farmers' markets. What are the signs or symptoms? [...] and how much exercise you get. Take lqpu-mxd-bebcaio and prescription medicines only as told by [...] provider. Document Revised: 11/26/2021 Document Reviewed: 11/26/2021 Elsevier Patient Education 2022 [email or web address]. 10/02/2023 12:54:15 BMI for Adults BMI for [...] numbers. This can be done either in [place] ([place] or metric measurements. Note that charts and online BMI calculators are available to help you find your BMI quickly and easily without having to do these calculations yourself. To calculate your BMI in [place] ([place] measurements: 1.Measure your weight in pounds [...] Centers for Disease Control and Prevention: www.cdc.gov [place] Heart Association: www.heart.org National Heart, Lung, and Blood [place]: www.nhlbi.nih.gov Summary Body mass index (BMI) is a number that is calculated from a person's weight and height. BMI may help estimate how much of a person's weight is composed of fat. BMI can help identify those who may be at higher risk for certain medical problems. BMI can be measured using [place] measurements or metric measurements. BMI charts are used to identify whether you are underweight, normal weight, overweight, or obese. This information is not intended to replace advice given to you by your health care provider. Make sure you discuss any questions you have with your health care provider. Document Revised: 01/11/2020 Document Reviewed: 11/18/2019 [employer] Patient Education 2022 [email or web address]. 10/02/2023 12:54:13 Migraine Headache Migraine Headache A [...] Follow these instructions at home: Medicines Take omut-pay-svqlrzp and prescription medicines only as told by your health care provider. Ask your health care provider if the medicine prescribed to you: ?Requires you to avoid driving or using heavy machinery. ?Can cause constipation. You may need to take these actions to prevent or treat constipation: ?Drink enough fluid to keep your urine pale yellow. ?Take eadr-ywe-uotnsvz or prescription medicines. ?Eat foods that are [...] provider. Document Revised: 08/12/2019 Document Reviewed: 06/02/2019 [employer] Patient Education 2022 [employer] 10/02/2023 12:54:11 Form - Headache Record Form [...] 09/18/2021 Elsevier Patient Education 2022 [employer] Inc. 10/02/2023 12:54:08 Eczema Eczema Eczema refers [...] these instructions at home: Take or apply zakt-kot-hbofvau and prescription medicines only as told by your health care provider. Use creams or ointments to moisturize your skin. Do not use lotions. Learn what triggers or irritates your symptoms so you can avoid these things. Treat symptom flare-ups quickly. Do not scratch your skin. This can make your rash worse. Keep all follow-up visits. This is important. Where to find more information [place] [employer] Dermatology: aad.org National Eczema Association: [...] provider. Document Revised: 01/28/2021 Document Reviewed: 01/28/2021 [employer] Patient Education 2022 [email or web address]. 10/02/2023 12:54:06 BMI for Adults BMI for [...] numbers. This can be done either in [place] ([place] or metric measurements. Note that charts and online BMI calculators are available to help you find your BMI quickly and easily without having to do these calculations yourself. To calculate your BMI in [place] ([place] measurements: 1.Measure your weight in pounds [...] Centers for Disease Control and Prevention: www.cdc.gov [place] Heart Association: www.heart.org National Heart, Lung, and Blood [place]: www.nhlbi.nih.gov Summary Body mass index (BMI) is a number that is calculated from a person's weight and height. BMI may help estimate how much of a person's weight is composed of fat. BMI can help identify those who may be at higher risk for certain medical problems. BMI can be measured using [place] measurements or metric measurements. BMI charts are used to identify whether you are underweight, normal weight, overweight, or obese. This information is not intended to replace advice given to you by your health care provider. Make sure you discuss any questions you have with your health care provider. Document Revised: 01/11/2020 Document Reviewed: 11/18/2019 [employer] Patient Education 2022 [email or web address]. Follow Up Care 09/22/2023 13:18:17 With:Princess Dumont [facility] Address: [address], [address] [facility] [address] [place] [address]- Business (1) When:07/08/2023 Comments:for f/u [facility] 08-27-2023 Hospital Discharge instructions Patient Education 08/27/2023 19:11:57 Carbohydrate Counting [...] 1.Identify the foods that contain carbohydrates: Rice. [place]. Milk. Strawberries. 2.Calculate how many servings you [...] and snacks. Where to find more information [place] [employer] Association: diabetes.org Centers for Disease Control [...] provider. Document Revised: 11/21/2020 Document Reviewed: 11/21/2020 [employer] Patient Education 2022 [email or web address]. 08/27/2023 19:11:56 Calorie Counting for Weight Loss [...] provider. Document Revised: 05/31/2020 Document Reviewed: 05/31/2020 [employer] Patient Education 2022 [email or web address]. 08/27/2023 19:11:54 Exercising to Lose Weight Exercising [...] your health care provider or diet and research compliance specialist (dietitian). This may include: ?Eating fewer [...] provider. Document Revised: 06/16/2021 Document Reviewed: 06/16/2021 [employer] Patient Education 2022 [email or web address]. 08/27/2023 19:11:53 BMI for Adults BMI for [...] numbers. This can be done either in [place] ([place] or metric measurements. Note that charts and online BMI calculators are available to help you find your BMI quickly and easily without having to do these calculations yourself. To calculate your BMI in [place] ([place] measurements: 1.Measure your weight in pounds [...] Centers for Disease Control and Prevention: www.cdc.gov [place] [employer] Association: www.heart.org National Heart, Lung, and Blood [place]: www.nhlbi.nih.gov Summary Body mass index (BMI) is a number that is calculated from a person's weight and height. BMI may help estimate how much of a person's weight is composed of fat. BMI can help identify those who may be at higher risk for certain medical problems. BMI can be measured using [place] measurements or metric measurements. BMI charts are used to identify whether you are underweight, normal weight, overweight, or obese. This information is not intended to replace advice given to you by your health care provider. Make sure you discuss any questions you have with your health care provider. Document Revised: 01/11/2020 Document Reviewed: 11/18/2019 [employer] Patient Education 2022 [email or web address]. 08/27/2023 19:11:48 Musculoskeletal Pain Musculoskeletal Pain Musculoskeletal [...] mouth or applied to the skin. Take bnkr-exu-fouiccg and prescription medicines only as told by [...] provider. Document Revised: 08/23/2020 Document Reviewed: 08/01/2020 [employer] Patient Education 2022 [employer] 08/27/2023 19:05:09 Cervicogenic Headache Cervicogenic Headache [...] includes your primary health care provider, a crayon painter, a neurologist, and a physical therapist. Follow these instructions at home: Take giar-tyz-mdevutb and prescription medicines only as told by [...] includes your primary health care provider, a crayon painter, a neurologist, and a physical therapist. This information is not intended to replace advice given to you by your health care provider. Make sure you discuss any questions you have with your health care provider. Document Revised: 10/24/2021 Document Reviewed: 10/24/2021 Elsevier Patient Education 2022 [employer] Inc. 08/27/2023 19:05:07 Form - Headache Record [...] provider. Document Revised: 09/18/2021 Document Reviewed: 09/18/2021 [employer] Patient Education 2022 [employer] 08/27/2023 19:05:07 Chronic Migraine Headache Chronic [...] Follow these instructions at home: Medicines Take ouyh-wdi-imvfawv and prescription medicines only as told by [...] for Headache and Migraine Patients (CHAMP): headachemigraine.org [place] Migraine Foundation: americanmigrainefoundation.org National Headache Foundation: headaches.org [...] provider. Document Revised: 06/06/2020 Document Reviewed: 06/06/2020 [employer] Patient Education 2022 [email or web address]. 08/27/2023 19:05:03 BMI for Adults BMI for [...] numbers. This can be done either in [place] ([place] or metric measurements. Note that charts and online BMI calculators are available to help you find your BMI quickly and easily without having to do these calculations yourself. To calculate your BMI in [place] ([place] measurements: 1.Measure your weight in pounds [...] Centers for Disease Control and Prevention: www.cdc.gov [place] [employer]: www.heart.org National Heart, Lung, and Blood [place]: www.nhlbi.nih.gov Summary Body mass index (BMI) is a number that is calculated from a person's weight and height. BMI may help estimate how much of a person's weight is composed of fat. BMI can help identify those who may be at higher risk for certain medical problems. BMI can be measured using [place] measurements or metric measurements. BMI charts are used to identify whether you are underweight, normal weight, overweight, or obese. This information is not intended to replace advice given to you by your health care provider. Make sure you discuss any questions you have with your health care provider. Document Revised: 01/11/2020 Document Reviewed: 11/18/2019 [employer] Patient Education 2022 [email or web address]. 08/27/2023 19:05:01 Health Maintenance, Female Health Maintenance, [...] provider. Document Revised: 09/09/2021 Document Reviewed: 09/09/2021 [employer] Patient Education 2022 embraase. Follow Up Care 08/17/2023 08:42:02 With:Princess Dumont [facility] Address: [address] [place] [address] [phone]- When:Within 6 Week(s) Comments:weight loss and headaches [facility] 02-19-2023 Evaluation + Plan note Future Scheduled TestsU Protein/Creat Ratio 02/19/23HgbA1c 02/19/23Microalbumin Level Urine 02/19/23TSH With T4fr Reflex 02/19/23Vitamin D 25 Hydroxy 02/19/23CBC w/ Auto Diff 02/19/23Comprehensive Metabolic Panel 02/19/23Lipid Panel 02/19/23XR Spine Cervical 4 or 5 Views 02/19/23 [facility] 02-19-2023 Hospital Discharge instructions Patient Education 02/19/2023 08:34:11 Cervicogenic Headache [...] includes your primary health care provider, a crayon painter, a neurologist, and a physical therapist. Follow these instructions at home: Take yhjt-syf-gciffsi and prescription medicines only as told by [...] includes your primary health care provider, a crayon painter, a neurologist, and a physical therapist. This information is not intended to replace advice given to you by your health care provider. Make sure you discuss any questions you have with your health care provider. Document Revised: 10/24/2021 Document Reviewed: 10/24/2021 [employer] Patient Education 2022 embraase. 02/19/2023 08:34:09 Migraine Headache Migraine Headache A [...] Follow these instructions at home: Medicines Take fcxv-xlw-eimphyf and prescription medicines only as told by your health care provider. Ask your health care provider if the medicine prescribed to you: ?Requires you to avoid driving or using heavy machinery. ?Can cause constipation. You may need to take these actions to prevent or treat constipation: ?Drink enough fluid to keep your urine pale yellow. ?Take vlhd-myn-awjdevx or prescription medicines. ?Eat foods that are [...] provider. Document Revised: 08/12/2019 Document Reviewed: 06/02/2019 Elsevier Patient Education 2022 [employer] 02/19/2023 08:34:03 Form - Headache Record [...] provider. Document Revised: 09/18/2021 Document Reviewed: 09/18/2021 [employer] Patient Education 2022 [employer] 02/19/2023 01:02:45 General Headache Without Cause [...] help with your condition: Managing pain Take nugq-exi-qhfztxw and prescription medicines only as told by [...] provider. Document Revised: 09/18/2021 Document Reviewed: 09/18/2021 [employer] Patient Education 2022 [employer] 02/19/2023 01:02:42 Form - Headache Record [...] Reviewed: 09/18/2021 Elsevier Patient Education 2022 Elsevier 02/19/2023 01:02:37 Cervicogenic Headache Cervicogenic Headache In [...] includes your primary health care provider, a crayon painter, a neurologist, and a physical therapist. Follow these instructions at home: Take liwt-ecd-ndsqmwv and prescription medicines only as told by [...] includes your primary health care provider, a crayon painter, a neurologist, and a physical therapist. This information is not intended to replace advice given to you by your health care provider. Make sure you discuss any questions you have with your health care provider. Document Revised: 10/24/2021 Document Reviewed: 10/24/2021 [employer] Patient Education 2022 embraase. 02/19/2023 01:02:35 Chronic Migraine Headache Chronic Migraine [...] Follow these instructions at home: Medicines Take isfo-rod-gifvqcn and prescription medicines only as told by [...] for Headache and Migraine Patients (CHAMP): headachemigraine.org [place] [employer] Migraine [employer]: [email or web address].org National Headache Foundation: headaches.org [...] provider. Document Revised: 06/06/2020 Document Reviewed: 06/06/2020 [employer] Patient Education 2022 embraase. Follow Up Care 02/17/2023 08:10:14 With:Princess Dumont FAM, MED Address: [address], [address] [employer] [address] [place] [phone]- When:Within 1 Month(s) Comments:headaches. neck pain With:Princess Dumont FAM, MED Address: [address], [address] [employer] [address] [place] [phone]- When:Within 1 Year(s) Comments:annual wellness, anxiety/ depression [facility] 07-24-2021 Hospital Discharge instructions Patient Education 07/24/2021 17:17:00 BMI for [...] height. This can be done either in [place] ([place] or metric measurements. Note that charts are available to help you find your BMI quickly and easily without having to do these calculations yourself. To calculate your BMI in [place] ([place] measurements, your health care provider will: [...] medical problems. BMI can be measured using [place]ian measurements or metric measurements. To interpret your [...] 12/30/2004 Document Revised: 04/02/2018 Document Reviewed: 03/03/2018 [employer] Patient Education 2020 embraase. 07/24/2021 17:16:58 Health Maintenance, Female Health Maintenance, [...] 11/03/2011 Document Revised: 04/13/2019 Document Reviewed: 04/13/2019 [employer] Patient Education 2020 embraase. Follow Up Care 06/26/2021 18:00:45 With:Leigh Ann Covington CNP Address: When: only if needed [facility] Evaluation + Plan note Future Appointments Appointment Date:10/03/2021 01:00:00 PM Scheduled Provider:Naya ABDI Location:[facility] Appointment Type:[facility] Evaluation + Plan note Future Appointments Appointment Date:03/25/2023 07:00:00 AM Scheduled Provider:Princess Dumont Location:[facility] Appointment Type: Open Future Scheduled TestsU Protein/Creat Ratio 02/19/23HgbA1c 02/19/23Microalbumin Level Urine 02/19/23TSH With T4fr Reflex 02/19/23Vitamin D 25 Hydroxy 02/19/23CBC w/ Auto Diff 02/19/23Comprehensive Metabolic Panel 02/19/23Lipid Panel 02/19/23XR Spine Cervical 4 or 5 Views 02/19/23 [facility] Evaluation + Plan note Future Appointments Appointment Date:10/21/2023 07:20:00 AM Scheduled Provider:Princess Dumont Location:[facility] Appointment Type: Open Future Scheduled TestsTSH With T4fr Reflex 02/19/23Vitamin D 25 Hydroxy 02/19/23CBC w/ Auto Diff 02/19/23Comprehensive Metabolic Panel 02/19/23Lipid Panel 02/19/23XR Spine Cervical 4 or 5 Views 02/19/23 [facility] Evaluation + Plan note Future Appointments Appointment Date:10/05/2024 07:00:00 AM Scheduled Provider:Mallory Judd Location:[facility] Appointment Type: Open [facility] Evaluation note Diagnosis Endometrial polyp Polyp of corpus uteri documented in this encounter [facility] Work Phone: Evaluation note* Diagnosis Pre-procedure lab exam Pre-procedural laboratory examination Female infertility Female infertility of unspecified origin documented in this encounter [facility] Work Phone: Evaluation note* Diagnosis Female infertility Female infertility of unspecified origin documented in this encounter [facility] Work Phone: Evaluation note* Diagnosis Female infertility Female infertility of unspecified origin documented in this encounter [facility] Work Phone: Evaluation note* Diagnosis Encounter for assisted reproductive fertility cycle Encounter for assisted reproductive fertility procedure cycle documented in this encounter [facility] Work Phone: Evaluation note* Diagnosis Female infertility Female infertility of unspecified origin Pre-procedure lab exam Pre-procedural laboratory examination documented in this encounter [facility] Work Phone: [phone] note* Diagnosis Female infertility Female infertility of unspecified origin documented in this encounter [facility] Work Phone: [phone] note* Diagnosis Female infertility Female infertility of unspecified origin documented in this encounter [facility] Work Phone: [phone] note* Diagnosis Female infertility Female infertility of unspecified origin documented in this encounter [facility] Work Phone: [phone] note* Diagnosis Encounter for assisted reproductive fertility cycle Encounter for assisted reproductive fertility procedure cycle documented in this encounter [facility] Work Phone: [phone] note* Diagnosis Encounter for assisted reproductive fertility cycle Encounter for assisted reproductive fertility procedure cycle documented in this encounter [facility] Work Phone: [phone] note* Diagnosis Well woman exam with routine gynecological exam Routine gynecological examination documented in this encounter [facility] HealthcareEvaluation note* Diagnosis Encounter for screening for other viral diseases- Primary Encounter for Rh blood typing Encounter for blood typing Screening for STDs (sexually transmitted diseases) Screening examination for venereal disease Genetic screening Other genetic screening Fertility testing Female infertility associated with male factors Female infertility of other specified origin documented in this encounter [facility] Work Phone: [phone] note* Diagnosis Fertility testing [Z31.41]- Primary Fertility testing 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 [Z31.81, N97.8] documented in this encounter [facility] Work Phone: [phone] note* Diagnosis Endometrial polyp Polyp of corpus uteri documented in this encounter [facility] Work Phone: [phone] note* Diagnosis Female infertility Female infertility of unspecified origin documented in this encounter [facility] Work Phone: [phone] note* Diagnosis Encounter for assisted reproductive fertility cycle Encounter for assisted reproductive fertility procedure cycle documented in this encounter [facility] Work Phone: [phone] note* Diagnosis Encounter for assisted reproductive fertility cycle Encounter for assisted reproductive fertility procedure cycle Encounter for test, result unknown documented in this encounter [facility] Work Phone: Evaluation note* Diagnosis Encounter to determine viability of , single or unspecified fetus documented in this encounter [facility] Work Phone: Evaluation note* Diagnosis Missed menses 9 weeks gestation of , unspecified gestational age Encounter for supervision of normal first in first trimester documented in this encounter [facility] HealthcareEvaluation note* Diagnosis 10 weeks gestation of First trimester state, incidental documented in this encounter [facility] HealthcareEvaluation note* Diagnosis STD exposure Second trimester state, incidental 14 weeks gestation of Screening, , for anatomic survey Encounter for anatomic survey documented in this encounter [facility] HealthcareHospital course Narrative No data available for this section [facility] Hospital Discharge instructions No data available for this section [facility] Progress note No data available for this section [facility] Reason for referral (narrative)* Consultation (Routine) - Authorized Specialty Diagnoses / Procedures Referred By Alejandro hyatt Referred To Contact Genetics Diagnoses Genetic screening Trish Thorpe APRN-FOOD SANITARIAN [phone] [phone] Referral ID Status Reason Start Date Expiration Date Visits Requested Visits Authorized [id number] Authorized Specialty Services Required 2023 12/10/2024 1 1 [facility] Work Phone: Reason for visit Narrative* Imaging (Routine) - Authorized Specialty Diagnoses / Procedures Referred By Alejandro hyatt Referred To Contact Radiology Diagnoses Female infertility Procedures KELSY US Pelvis Limited Follicles - Follicle Studies Performed America Quintanilla APRN-FOOD SANITARIAN [address] [place] [address] Phone: tel: fax: Referral ID Status Reason Start Date Expiration Date Visits Requested Visits Authorized [id number] Authorized Perform Procedure 02/02/2024 02/01/2025 8 8 [facility] Work Phone: reason for visit Narrative* Imaging (Routine) - Pending Review Specialty Diagnoses / Procedures Referred By Contac t Referred To Contact Radiology Diagnoses Female infertility Procedures KELSY US Pelvis Limited Follicles - Follicle Studies Performed America Quintanilla, PANTS CUTTER-FOOD SANITARIAN [address] [place] [address] Phone: tel: fax: Referral ID Status Reason Start Date Expiration Date Visits Requested Visits Authorized [id number] Pending Review Perform Procedure 02/02/2024 02/01/2025 8 8 [facility] Work Phone: reason for visit Narrative* Procedure (Routine) - Authorized Specialty Diagnoses / Procedures Referred By Nateac t Referred To Contact Reproductive Endocrinology and Infertility Diagnoses Encounter for assisted reproductive fertility cycle Procedures Egg Retrieval NH FOLLICLE PUNCTURE OOCYTE RETRIEVAL ANY METHOD CHG US GUIDANCE ASPIRATION OVA IMG S&I CHG OOCYTE ID FROM FOLLICULAR FLU CHG BX OOCYTE POLR BDY/AMBER BLST MICROTQ <= 5 AMBER CHG BX OOCYTE MICROTQ >5 AMBER CHG UNLISTED MOLECULAR PATHOLOGY PROCEDURE CHG CYTOGENETICS&MOLEC CYTOGENETICS INTERP&REP Beth Warren MD [address] [place] [address] Phone: tel: fax: Referral ID Status Reason Start Date Expiration Date V isits Requested Visits Authorized [id number] Authorized 01/27/2024 01/26/2025 1 1 [facility] Work Phone: reason for visit Narrative* Imaging (Routine) - Authorized Specialty Diagnoses / Procedures Referred By Contac t Referred To Contact Radiology Diagnoses Female infertility Procedures KELSY US Pelvis Limited Follicles - Follicle Studies Performed Donya Abernathy, PANTS CUTTER-FOOD SANITARIAN [address] [facility], [address], [address] [place] [address] Phone: tel: fax: Referral ID Status Reason Start Date Expiration Date Visits Requested Visits Authorized [id number] Authorized Perform Procedure 4 03/01/2025 8 8 [facility] Work Phone: Rehayu for visit Narrative* Procedure (Routine) - Authorized Specialty Diagnoses / Procedures Referred By Alejandro t Referred To Contact Reproductive Endocrinology and Infertility Diagnoses Encounter for assisted reproductive fertility cycle Procedures Egg Retrieval NH FOLLICLE PUNCTURE OOCYTE RETRIEVAL ANY METHOD CHG US GUIDANCE ASPIRATION OVA IMG S&I CHG OOCYTE ID FROM FOLLICULAR FLU CHG BX OOCYTE POLR BDY/AMBER BLST MICROTQ <= 5 AMBER CHG BX OOCYTE MICROTQ >5 AMBER CHG UNLISTED MOLECULAR PATHOLOGY PROCEDURE CHG CYTOGENETICS&MOLEC CYTOGENETICS INTERP&REP Donya Abernathy, PANTS CUTTER-FOOD SANITARIAN [address] [facility], [address], [place] [address] Phone: tel: fax: Referral ID Status Reason Start Date Expiration Date V isits Requested Visits Authorized [id number] Authorized 03/01/2024 03/01/2025 1 0 [facility] Work Phone: reason for visit Narrative* Imaging (Routine) - Authorized Specialty Diagnoses / Procedures Referred By Alejandro t Referred To Contact Radiology Diagnoses Female infertility Procedures KELSY US Endometrial Lining Check Donya Abernathy, PANTS CUTTER-FOOD SANITARIAN [address] [facility], [facility], [place] [address] Phone: tel: fax: Referral ID Status Reason Start Date Expiration Date Visits Requested Visits Authorized [id number] Authorized Perform Procedure 4 02/23/2025 5 5 [facility] Work Phone: reason for visit Narrative* Procedure (Routine) - Authorized Specialty Diagnoses / Procedures Referred By Alejandro t Referred To Contact Reproductive Endocrinology and Infertility Diagnoses Encounter for assisted reproductive fertility cycle Procedures Embryo Transfer NH EMBRYO TRANSFER INTRAUTERINE CHG ULTRASONIC GUIDANCE INTRAOPERATIVE CHG THAWING CRYOPRESERVED EMBRYO CHG ASSTD EMBRYO HATCHING MICROTQS ANY METH CHG PREPJ EMBRYO TR Juan Chavarria MD [address] [facility], [address] [place] [address] Phone: tel: fax: Referral ID Status Reason Start Date Expiration Date V isits Requested Visits Authorized [id number] Authorized 06/10/2024 06/10/2025 1 1 [facility] Work Phone: Summary Purpose Family History No Family History [...] Directives Records FoundNo Advanced Directives Records Found Reason for Referral Specialty Diagnoses / Procedures Referred By Contac t Referred To Contact Diagnoses Endometrial polyp Procedures Polypectomy Juan Chavarria MD [address] [facility] [address], [facility] [address] [place] [address] [address] [place] [address] Referral ID Status Reason Start Date Expiration Date V isits Requested Visits Authorized [id number] Authorized 01/25/2024 01/24/2025 1 1 Additional Source Comments INFORMATION SOURCE (unrecogn ized section and content) DATE CREATED AUTHOR 08/01/2022 [facility] DATE CREATED AUTHOR AUTHOR'S ORGANIZ ATION 04/04/2024 [facility] DATE CREATED AUTHOR AUTHOR'S ORGANIZ ATION 06/15/[address] [facility] DATE CREATED AUTHOR AUTHOR'S ORGANIZ ATION 07/02/2024 [facility] DATE CREATED AUTHOR AUTHOR'S ORGANIZ ATION 07/14/2024 [facility] DATE CREATED AUTHOR AUTHOR'S ORGANIZ ATION 09/08/2024 [facility] DATE CREATED AUTHOR AUTHOR'S ORGANIZ ATION 09/09/2024 [facility] dical Specialists EPIC Patient Care team informatio n (unrecognized section and content) Press Operator Meat Relationship Specialty Start Date End Date Allyssa Robles RN Registered Nurse Reproductive Endocrinology and Infertility 12/25/23 Press Operator Meat Relationship Specialty Start Date End Date Allyssa Robles RN Registered Nurse Reproductive Endocrinology and Infertility 12/25/23 Press Operator Meat Relationship Specialty Start Date End Date Allyssa Robles RN Registered Nurse Reproductive Endocrinology and Infertility 12/25/23 Press Operator Meat Relationship Specialty Start Date End Date Allyssa Robles RN Registered Nurse Reproductive Endocrinology and Infertility 12/25/23 Press Operator Meat Relationship Specialty Start Date End Date Allyssa Robles RN Registered Nurse Reproductive Endocrinology and Infertility 12/25/23 Press Operator Meat Relationship Specialty Start Date End Date Allyssa Robles RN Registered Nurse Reproductive Endocrinology and Infertility 12/25/23 Press Operator Meat Relationship Specialty Start Date End Date Allyssa Robles RN Registered Nurse Reproductive Endocrinology and Infertility 12/25/23 Press Operator Meat Relationship Specialty Start Date End Date Allyssa Robles RN Registered Nurse Reproductive Endocrinology and Infertility 12/25/23 Press Operator Meat Relationship Specialty Start Date End Date Allyssa Robles RN Registered Nurse Reproductive Endocrinology and Infertility 12/25/23 Press Operator Meat Relationship Specialty Start Date End Date Ginger Torres LPN Licensed Practical Nurse 12/10/23 Press Operator Meat Relationship Specialty Start Date End Date Allyssa Robles RN Registered Nurse Reproductive Endocrinology and Infertility 12/25/23 Press Operator Meat Relationship Specialty Start Date End Date Allyssa Robles RN Registered Nurse Reproductive Endocrinology and Infertility 12/25/23 Press Operator Meat Relationship Specialty Start Date End Date Allyssa Robles RN Registered Nurse Reproductive Endocrinology and Infertility 12/25/23 Press Operator Meat Relationship Specialty Start Date End Date Allyssa Robles RN Registered Nurse Reproductive Endocrinology and Infertility 12/25/23 Press Operator Meat Relationship Specialty Start Date End Date Allyssa Robles RN Registered Nurse Reproductive Endocrinology and Infertility 12/25/23 Reason for Visit (unrecogniz ed section and content) Specialty Diagnoses / Procedures Referred By Alejandro hyatt Referred To Contact Diagnoses Endometrial polyp Procedures Polypectomy Juan Chavarria MD [address] [place] [address] Referral ID Status Reason Start Date Expiration Date V isits Requested Visits Authorized [id number] Authorized 01/25/2024 01/24/2025 1 1 Specialty Diagnoses / Procedures Referred By Alejandro hyatt Referred To Contact Radiology Diagnoses Female infertility Procedures KELSY US Pelvis Limited Follicles - Follicle Studies Performed America Quintanilla, PANTS CUTTER-FOOD SANITARIAN [address] [place] [address] Referral ID Status Reason Start Date Expiration Date Visits Requested Visits Authorized [id number] Authorized Perform Procedure 02/02/2024 02/01/2025 8 8 Reason Comments Well Women Visit Reason Comments New Patient Fertility Consultation Reason Comments IVF Consultation Reason Comments Amenorrhea Reason Comments Routine Visit FOR RECORDS PERTAINING TO PATIENTS WHO ARE [...] BE BASED ON THE PRIMARY CLINICAL RECORDS. [facility]. provides no warranty or guarantee of the accuracy or completeness of information in this document.
[2024-09-21 13:21] VITALS: BP 115/85; PULSE 94; TEMP 36.9; O2SAT 99; BMI 31.9
--- NOTE | 2024-09-21 13:28 | ED.GENADUL1 ---
HPI HPI - General Adult General Chief complaint: Abdominal Pain Stated complaint: ABDOMINAL PAIN - 17 WEEKS PREG Time Seen by Provider: 09/21/24 13:20 Source: patient Mode of arrival: walk-in Limitations: no limitations History of Present Illness HPI narrative: The patient is a 28-year-old female who presents to the emergency department today for evaluation concerns for abdominal pain. She endorses she has had pain to her left upper quadrant intermittently over the past 3 days that has become more persistent today. She states she is approximately 17 weeks via IVF BROOKE 02/26/25 ). She denies any nausea/vomiting/diarrhea. No fever/chills, chest pain, shortness of breath. No urinary symptoms or back/flank pain. No vaginal bleeding or discharge. She otherwise denies any significant medical or surgical history. Related Data Previous Rx's ?Medication ?Instructions ?Recorded cephalexin 500 mg capsule 500 mg PO BID 7 days #14 caps 09/21/24 Allergies Allergy/AdvReac Type Severity Reaction Status Date / Time latex Allergy itch Verified 04/09/23 07:53 nickel Allergy Unknown Verified 04/09/23 07:53 azithromycin Allergy Unknown Uncoded 04/09/23 07:53 Opioid HPI Opioid Management Most Recent Opioid Data: Ur Phencyclidine Scrn, (NEGATIVE) Negative 08/29/24, 16:25 Review of Systems ROS Status of ROS 10 or more systems reviewed and unremarkable except as noted in history and below [facility] Medical History (Updated 09/21/24 @ 14:50 by Ellis Mojica NP) Infertility Surgical History (Updated 04/09/23 @ 07:54 by Mercy Holt) S/P right knee arthroscopy ?Z98.890 - Other specified postprocedural states (ICD-10) 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 Little interest or pleasure in doing things: not at all Feeling down, depressed, or hopeless: not at all Exam Narrative Exam Narrative: Constituational: Awake/ alert, no apparent distress, well hydrated HENMT: normocephalic, external ears normal, moist oral mucous membranes and oropharynx normal Eyes: EOMI and conjunctivae normal Neck: ROM intact Chest: inspection of chest normal Respiratory: Normal respiratory effort, clear to auscultation bilaterally Cardio: regular rate and regular rhythm GI: +mild discomfort to LUQ, abdomen is otherwise soft to palpation and non-tender, +FHT 145bpm Back: nontender MSK: ROM intact, +NVI Skin: no rashes or petechiae Neuro: no focal deficits Psych: mental status grossly normal Constitutional Vital Signs, click to edit/add: Last Vital Signs Temp 98.4 F 09/21/24 13:21 Pulse 94 H 09/21/24 13:21 Resp 18 09/21/24 13:21 BP 115/85 09/21/24 13:21 Pulse Ox 99 09/21/24 13:21 O2 Del Method Room Air 09/21/24 13:21 Course Vital Signs Vital signs: Vital Signs Temperature 98.4 F 09/21/24 13:21 Pulse Rate 94 H 09/21/24 13:21 Respiratory Rate 18 09/21/24 13:21 Blood Pressure 115/85 09/21/24 13:21 Pulse Oximetry 99 09/21/24 13:21 Oxygen Delivery Method Room Air 09/21/24 13:21 Temperature 98.4 F 09/21/24 13:21 Pulse Rate 94 H 09/21/24 13:21 Respiratory Rate 18 09/21/24 13:21 Blood Pressure 115/85 09/21/24 13:21 Pulse Oximetry 99 09/21/24 13:21 Oxygen Delivery Method Room Air 09/21/24 13:21 Medical Decision Making MDM Narrative Medical decision making narrative: The patient is a nontoxic well-appearing 28-year-old female who presented to the emergency department today for evaluation for concerns for right upper quadrant abdominal pain. Initial examination vital signs overall stable. No acute abdominal findings on exam. Historically patient endorsed being approximately 17 weeks through IVF and otherwise having a stable . heart tones within normal range in the emergency department. No clinical evidence concerning for miscarriage. Patient was offered analgesic medication while in the ER and declined she reported her pain to not be that significant. Labs stable and showed no significant leukocytosis, anemia, thrombocytopenia. Electrolytes including renal and hepatic function stable. UA is mildly positive for UTI as evidenced by leukocytes and bacteria present in the urine. Patient historically had endorsed some intermittent lower abdominal discomfort that she attributed to round ligament pain . Will plan to treat for UTI with cephalexin. Advised on follow-up with patient's primary care provider and/or her YARDER PUNCHER for reevaluation. Discussed signs and symptoms of any worsening condition. She was given strict when to return to the ER precautions for abdominal pain. Patient verbalized an understanding of this and is agreeable with the plan to be discharged home. Medical Records Medical records reviewed: Yes I reviewed the patient's medical records Lab Data Lab results reviewed: Yes I reviewed the patient's lab results Labs: Lab Results 09/21/24 09/21/24 Range/Units 13:34 14:25 WBC 8.8 (4.0-11.0) 10^3/uL RBC 4.43 (4.20-5.40) 10^6/uL Hgb 13.8 (12.0-16.0) g/dL Hct 38.7 (36.0-48.0) % MCV 87.4 (81.0-99.0) fL MCH 31.2 (26.7-34.0) pg MCHC 35.7 H (29.9-35.2) g/dL RDW 12.3 (11.0-15.0) % Plt Count 147 L (150-450) 10^3/uL MPV 11.0 (9.5-13.5) fL Neut % (Auto) 69.0 (43.0-75.0) % Lymph % (Auto) 22.0 (20.5-60.0) % [place] % (Auto) 7.0 (1.7-12.0) % Eos % (Auto) 1.1 (0.9-7.0) % Baso % (Auto) 0.3 (0.2-2.0) % Neut # (Auto) 6.1 (1.4-6.5) 10^3/uL Lymph # (Auto) 1.9 (1.2-3.8) 10^3/uL [place] # (Auto) 0.6 (0.3-0.8) 10^3/uL Eos # (Auto) 0.1 (0.0-0.7) 10^3/uL Baso # (Auto) 0.0 (0.0-0.1) 10^3/uL Abs Immat Gran (auto) 0.05 H (0.00-0.03) 10^3/uL Imm/Tot Granulo (auto) 0.6 H (0.0-0.5) % Sodium 137 (136-145) mmol/L Potassium 3.6 (3.5-5.1) mmol/L Chloride 106 (98-107) mmol/L Carbon Dioxide 24.8 (21.0-32.0) mmol/L Anion Gap 9.8 BUN 8.0 (7.0-18.0) mg/dL Creatinine 0.54 L (0.55-1.02) mg/dL Est GFR ( Amer) >60 (>=60 mL/min/1.73m^2) Est GFR (Non-Af Amer) >60 (>=60 mL/min/1.73m^2) BUN/Creatinine Ratio 14.8 Glucose 81 (74-106) mg/dL Calcium 9.2 (8.5-10.1) mg/dL Total Bilirubin 0.4 (0.2-1.0) mg/dL AST 29 (15-37) U/L ALT 38 (14-59) U/L Alkaline Phosphatase 66 (46-116) U/L Total Protein 6.4 (6.4-8.2) g/dL Albumin 3.0 L (3.4-5.0) g/dL Globulin 3.4 g/dL Albumin/Globulin Ratio 0.9 Lipase 30.0 (16.0-77.0) U/L Urine Color Lt. yellow (YELLOW) Urine Clarity Sl cloudy (CLEAR) Urine pH 7.0 (5.0-9.0) Ur Specific Earling 1.010 (1.005-1.025) Urine Protein Negative (NEG/TRACE) mg/dL Urine Glucose (UA) Negative (NEGATIVE) mg/dL Urine Ketones 15 A (NEGATIVE) mg/dL Urine Occult Blood Negative (NEGATIVE) Urine Nitrite Negative (NEGATIVE) Urine Bilirubin Negative (NEGATIVE) Urine Urobilinogen 0.2 (0.2-1.0) EU/dL Ur Leukocyte Esterase Small A (NEGATIVE) Urine RBC 0-2 (0-2) #/HPF Urine WBC 2-5 A (NONE SEEN) #/HPF Ur Squamous Epith Cells Moderate A (NONE/RARE) #/LPF Urine Crystals None seen (None Seen) #/HPF Urine Bacteria Moderate A (NONE SEEN) #/HPF Urine Casts None seen (NONE SEEN) #/LPF Urine Mucus Trace A (NONE SEEN) Ur Culture Indicated? Yes-[facility] [place] Discharge Plan Discharge Chief Complaint: Abdominal Pain Clinical Impression: Abdominal pain affecting , UTI (urinary tract infection) Patient Disposition: Home, Self-Care Prescriptions / Home Meds: New cephalexin 500 mg capsule 500 mg PO BID 7 Days Qty: 14 0RF Print Language: Cuban Instructions: Abdominal Pain in (ED), Urinary Tract Infection in (ED) Additional Instructions: Take antibiotics as prescribed for suspected urinary tract infection. May take Tylenol as needed for any pain. Please follow-up with your primary care provider and/or your [facility] PUNCHER for reevaluation in the next 3-5 days. May return to the ER with any new or worsening symptoms/concerns. Referrals: Physician,Non-Staff, MD [Primary Care Provider] - 1 week
[2024-09-21 13:42] LABS: Basophils Percent Auto 0.3 % (0.2-2.0); Eosinophils Absolute Auto 0.1 10^3/uL (0.0-0.7); Eosinophils Percent Auto 1.1 % (0.9-7.0); Hematocrit 38.7 % (36.0-48.0); Hemoglobin 13.8 g/dL (12.0-16.0); Immature Granulocytes Abs Auto 0.05 10^3/uL (0.00-0.03); Immature Granulocytes Pct Auto 0.6 % (0.0-0.5); Lymphocytes Absolute Auto 1.9 10^3/uL (1.2-3.8); Mean Corpuscular HGB Conc 35.7 g/dL (29.9-35.2); Mean Corpuscular Hemoglobin 31.2 pg (26.7-34.0); Mean Corpuscular Volume 87.4 fL (81.0-99.0); Monocytes Absolute Auto 0.6 10^3/uL (0.3-0.8); Neutrophils Absolute Auto 6.1 10^3/uL (1.4-6.5); Platelet Count 147 10^3/uL (150-450); Red Blood Count 4.43 10^6/uL (4.20-5.40); Red Cell Distribution Width 12.3 % (11.0-15.0); White Blood Count 8.8 10^3/uL (4.0-11.0)
--- NOTE | 2024-09-21 13:49 | PC.NURSE ---
pt is 17 weeks . IVF . 1st . on and off abd dullness x3 days. not going away today and referred to L side mostly today. pt is not bleeding.
[2024-09-21 13:57] LABS: Alanine Aminotransferase 38 U/L (14-59); Albumin Globulin Ratio 0.9; Alkaline Phosphatase 66 U/L (46-116); Anion Gap 9.8; Aspartate Amino Transferase 29 U/L (15-37); BUN Creatinine Ratio 14.8; Bilirubin Total 0.4 mg/dL (0.2-1.0); Calcium 9.2 mg/dL (8.5-10.1); Carbon Dioxide 24.8 mmol/L (21.0-32.0); Chloride 106 mmol/L (98-107); Estimated GFR (African America >60 (>=60 mL/min/1.73m^2); Estimated GFR (Non-African Ame >60 (>=60 mL/min/1.73m^2); Globulin 3.4 g/dL; Glucose 81 mg/dL (74-106); Potassium 3.6 mmol/L (3.5-5.1); Sodium 137 mmol/L (136-145); Total Protein 6.4 g/dL (6.4-8.2)
[2024-09-21 14:35] LABS: Bilirubin Urine NEGATIVE (NEGATIVE); Blood Urine NEGATIVE (NEGATIVE); Clarity Urine SL CLOUDY (CLEAR); Color Urine LT. YELLOW (YELLOW); Glucose Urine UA NEGATIVE (NEGATIVE); Ketones Urine 15 mg/dL (NEGATIVE); Leukocyte Esterase Urine SMALL (NEGATIVE); Nitrite Urine NEGATIVE (NEGATIVE); Protein Urine NEGATIVE (NEG/TRACE); Urobilinogen Urine 0.2 EU/dL (0.2-1.0)
[2024-09-21 14:39] LABS: Urine Microscopic Indicated YES
[2024-09-21 14:42] LABS: Bacteria Urine MODERATE #/HPF (NONE SEEN); Mucus Urine TRACE (NONE SEEN); RBC Urine 0-2 #/HPF (0-2)
[2024-09-21 14:43] LABS: Cast Seen? NONE SEEN #/LPF (NONE SEEN); Crystals Seen? None Seen #/HPF (None Seen); Squamous Epithelial Cell Urine MODERATE #/LPF (NONE/RARE); Urine Culture Indicated YES-FRMC
== END 2024-09-21 15:01 | disposition home or self-care (01) ==
PROVIDERS: Nurse Practitioner; Emergency Provider Emergency Medicine
DX: O26.892 Other specified pregnancy related conditions, second trimester (principal); R10.12 Left upper quadrant pain; O23.42 Unspecified infection of urinary tract in pregnancy, second trimester; N39.0 Urinary tract infection, site not specified; Z3A.17 17 weeks gestation of pregnancy
CPT/HCPCS: 36415; 80053; 81001; 83690; 85025; 87086; 99284

== ENCOUNTER 2024-10-11 15:08 | Outpatient (OUT) | payer OTHER, SELFPAY ==
--- OUTSIDE RECORDS SUMMARY | 2024-10-07 07:31 | XMS_ITS | Encounter Summary ---
Author Organization [facility] Address [address] [place] [address] Phone Care Team Providers Care Shower Maid Name Role Phone Allyssa Robles RN Unavailable Unavailable Reason for Referral * Imaging (Routine) - Authorized Specialty Diagnoses / Procedures Referred By Contac t Referred To Contact Radiology Diagnoses ([facility]) Procedures US OB detail anatomy Layo Courtney DO [address], [place] [address] Phone: tel: fax: Referral ID Status Reason Start Date Expiration Date Visits Requested Visits Authorized [id number] Authorized Perform Procedure 08/15/2024 08/15/2025 1 1 Reason for Visit * Imaging (Routine) - Authorized Specialty Diagnoses / Procedures Referred By Contac t Referred To Contact Radiology Diagnoses ([facility]) Procedures US OB detail anatomy Layo Courtney DO [address] [facility] [address] [facility] [address], [place] [address] Phone: tel: fax: Referral ID Status Reason Start Date Expiration Date Visits Requested Visits Authorized [id number] Authorized Perform Procedure 08/15/2024 08/15/2025 1 1 Encounter Details Date Type Department Care Team (Latest Contact Info) Description 10/07/2024 7:31 AM EDT - 10/07/2024 11:59 PM EDT Hospital Encounter Valeria Chanel Satnam [address] [place] [address] ([facility]) Discharge Disposition: Home 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 Tobacco Use Types Packs/Day Years [...] suspected to have Coronavirus/COVID-19? No / Unsure 10/07/2024 7:29 AM EDT documented as of this encounter Medications at Time of Discharge estradiol (Estrace) 2 mg tabletIndications :Female infertility Insert 1 tablet (2 mg) into the vagina 2 times a day. 06/06/2024 6 estradiol (Estrace) 2 mg tabletIndications :Female infertility Take 3 tablets (6 mg) by mouth once daily. 90 tablet 11 06/19/2024 6 lidocaine-priloca ine (Emla) 2.5-2.5 % creamIndications: Female infertility Apply topically once daily. Apply to treatment area 1 hour prior to injection. 30 g 2 05/03/2024 3:33 PM EST 02/24/2024 5 axivzoxy37-opkr-u olic-omega3 29-1-400 mg combo pack,tablet and cap, Take by mouth. progesterone 50 mg/mL injectionIndicati ons:Female infertility Draw up and inject 1.5 mL (75 mg) into the muscle at the same time each morning as directed per provider. 150 mL 05/03/2024 3:33 PM EST 03/29/2024 5 documented as of this encounter Plan of Treatment Not on file documented as of this encounter Procedures Procedure Name Priority Date/Time Associated Diagnosis Comments US OB DETAIL ANATOMY Routine 10/07/2024 9:24 AM EDT ([facility]) documented in this encounter Results * US OB detail anatomy (10/07/2024 9:24 AM EDT) Anatomical Region Laterality Modality Body Ultrasound 10/07/2024 7:34 AM EDT 10/07/2024 7:34 AM EDT Narrative 10/07/2024 10:24 AM EDT Interpreted by: Ad Ovalle Indication ======== Screening for Abnormalities, Conceived via Assisted Reproductive Technology History ====== General History Height 160 cm Height (ft) 5 ft Height (in) 3 in Previous Outcomes 1 Para 0 Maternal Assessment Height 160 cm Height (ft) 5 ft Height (in) 3 in Weight 75 kg Weight (lb) 165 lb Weight gain 0 kg Weight gain (lb) 0 lb BMI 29.23 kg/m Physical Exam Initial weight (lb) 165 lb ========= Moon . Number of fetuses: 1 Dating ====== Conception: IVF Embryo Transfer Embryo transfer on: 06/13/2024 IVF / ET 5 d GA by IVF / ET 19 w + 2 d BROOKE by IVF / ET: 03/01/2025 Ultrasound examination on: 10/07/2024 GA by U/S based upon: AC, BPD, Femur, HC GA by U/S 19 w + 6 d BROOKE by U/S: 02/25/2025 Assigned: based on the IVF / ET date, selected on 07/11/2024 Assigned GA 19 w + 2 d Assigned BROOKE: 03/01/2025 Impression ========= A targeted anatomic survey was indicated for IVF, family history of ADPCKD (in chart review, mother and brother have ADPCKD. Patient had renal imaging many years ago but declined genetic testing). PGT-A was normal. - biometry is consistent with the stated gestational age -Detailed anatomic evaluation of the brain/ventricles, face, heart/outflow tracts and chest anatomy, abdominal organ specific anatomy, number/length/architecture of limbs and detailed evaluation of the umbilical cord and placenta and other anatomy as clinically indicated was performed. -No malformations were identified on this comprehensive survey within limitations of sonographic evaluation at this gestational age. -The placenta and adnexa appear within normal today. -Today's anatomic survey was completed A normal anatomic survey does not exclude all possible structural or functional abnormalities. Thank you for allowing us to participate in the care of your patient Follow up growth assessment at 30 weeks is suggested for the indication of IVF General Evaluation Cardiac activity present. FHR 146 bpm. movements: visualized. Presentation: cephalic Placenta: Placental site: anterior, No Previa Seen Umbilical cord: Cord vessels: 3 vessel cord. Insertion site: placental insertion: normal Amniotic fluid: Amount of AF: normal amount Biometry Standard BPD 43.8 mm 19w 2d 49% Hadlock OFD 58.8 mm 68% INTERGROWTH-21st HC 163.7 mm 19w 1d 34% Hadlock Cerebellum tr 19.8 mm 19w 4d 57% James Nuchal fold 3.7 mm AC 155.2 mm 20w 5d 87% Hadlock Femur 32.4 mm 20w 1d 73% Hadlock Humerus 29.4 mm 45% Chitty HC / AC 1.05 2% Hadlock EFW 342 g 20w 1d 91% Hadlock EFW (lb) 0 lb EFW (oz) 12 oz EFW by: Hadlock ([id number]-FL) Extended Car Coupler 6.0 mm CM 4.4 mm 36% Nicolaides Nasal bone 4.7 mm Head / Face / Neck Cephalic index 0.74 10% Nicolaides Nasal bone: present Extremities / Bony Struc FL / BPD 0.74 92% Hadlock FL / HC 0.20 96% Hadlock FL / AC 0.21 35% Hadlock Other Structures FHR 146 bpm Anatomy Cranium: Normal Lateral ventricles: Normal Choroid plexus: Normal Midline falx: Normal Cavum septi pellucidi: Normal Cerebellum: Normal Cisterna magna: Normal Head / Neck Head size: Normal Head shape: Normal Rt lateral ventricle: Normal Lt lateral ventricle: Normal Rt choroid plexus: Normal Lt choroid plexus: Normal Thalami: Normal Cerebellar lobes: Normal Vermis: Normal Neck: Normal Neck: No neck masses seen, No neck masses seen Lips: Normal Profile: Normal Nose: Normal Face Nasal bone: present Maxilla: Normal Mandible: Normal Orbits: Normal 4-chamber view: Normal RVOT view: Normal LVOT view: Normal 3-vessel view: Normal 5-tjbmxy-xcejzuj view: Normal Heart / Thorax Situs: situs solitus (normal) Aortic arch view: Normal Bicaval view: Normal Cardiac position: levocardia (normal) Cardiac axis: Normal Cardiac size: normal (approx. 1/3 of thoracic area) Cardiac proportions: proportioned (normal) Cardiac rhythm: regular (normal) Rt lung: Normal Lt lung: Normal Rt diaphragm: Normal Lt diaphragm: Normal Cord insertion: Normal Stomach: Normal Kidneys: Normal Bladder: Normal Genitals: Normal Abdomen Abdom. wall: Normal Stomach: Stomach size and situs appear normal, Stomach size and situs appear normal Rt kidney: Normal Lt kidney: Normal Small bowel: Normal Large bowel: Normal Cervical spine: Normal Thoracic spine: Normal Lumbar spine: Normal Sacral spine: Normal Arms: Normal Hands: normal Legs: Normal Feet: normal Rt upper arm: Normal Rt forearm: Normal Rt hand: Normal Rt fingers: Normal Lt upper arm: Normal Lt forearm: Normal Lt hand: Normal Lt fingers: Normal Rt upper leg: Normal Rt lower leg: Normal Rt foot: Normal Rt toes: Normal Lt upper leg: Normal Lt lower leg: Normal Lt foot: Normal Lt toes: Normal Position of hands: Normal Position of feet: Normal Wants to know sex: no Genetic Screen Age 28 yrs Echogenic focus: no Ventriculomegaly: no Nuchal fold: normal Echogenic bowel: no Pyelectasis: no Short femur: no Short humerus: no Nasal bone: present Display risk: Risk at time of screening Maternal Structures Uterus / Cervix Uterus: Visualized Uterus details: Normal Uterus position: anteverted Cervix: Visualized Cervix details: Long and closed Cervical length 44.0 mm Ovaries / Tubes / Adnexa Rt ovary: Not visualized Lt ovary: Visualized Lt ovary details: Normal Lt ovary D1 34.3 mm Lt ovary D2 26.8 mm Lt ovary D3 15.3 mm Lt ovary Vol 7.4 cm Cul de Sac / Bladder / Kidneys / Other Cul de Sac: Visualized Free fluid: No free fluid visualized Procedure Note Ad Ovalle MD - 10/07/2024 Interpreted by: Ad Ovalle Indication ======== Screening for Abnormalities, Conceived via AssistedReproductive Technology History ====== General History Nrtmes455 cm Height (ft)5 ft Height (in)3 in Previous Outcomes Gravida1 Para0 Maternal Assessment Tkobkq024 cm Height (ft)5 ft Height (in)3 in Olqmqb94 kg Weight (lb)165 lb Weight gain0 kg Weight gain (lb)0 lb BMI29.23 kg/m Physical Exam Initial weight (lb)165 lb ========= Moon . Number of fetuses: 1 Dating ====== Conception:IVF Embryo Transfer Embryo transfer on:06/13/2024 IVF / ET5 d GA by IVF / ET19 w + 2 d BROOKE by IVF / ET:03/01/2025 Ultrasound examination on:10/07/2024 GA by U/S based upon:AC, BPD, Femur, HC GA by U/S19 w + 6 d BROOKE by U/S:02/25/2025 Assigned:based on the IVF / ET date, selected on 07/11/2024 Assigned GA19 w + 2 d Assigned BROOKE:03/01/2025 Impression ========= A targeted anatomic survey was indicated for IVF, family history of ADPCKD(in chart review, mother and brother have ADPCKD. Patient had renalimaging many years ago but declined genetic testing). PGT-A was normal. - biometry is consistent with the stated gestational age -Detailed anatomic evaluation of the brain/ventricles, face,heart/outflow tracts and chest anatomy, abdominal organ specific anatomy,number/length/architecture of limbs and detailed evaluation of the umbilical cord and placenta and otherfetal anatomy as clinically indicated was performed. -No malformations were identified on this comprehensive survey withinlimitations of sonographic evaluation at this gestational age. -The placenta and adnexa appear within normal today. -Today's anatomic survey was completed A normal anatomic survey does not exclude all possible structural orfunctional abnormalities. Thank you for allowing us to participate in the care of your patient Follow up growth assessment at 30 weeks is suggested for the indication ofIVF General Evaluation Cardiac activity present. FHR 146 bpm. movements: visualized.Presentation: cephalic Placenta: Placental site: anterior, No Previa Seen Umbilical cord: Cord vessels: 3 vessel cord. Insertion site: placentalinsertion: normal Amniotic fluid: Amount of AF: normal amount Biometry Standard BPD43.8 mm19w 2d 49% Hadlock OFD58.8 mm 68% INTERGROWTH-21st HC163.7 mm19w 1d 34% Hadlock Cerebellum tr19.8 mm19w 4d 57% James Nuchal fold3.7 mm AC155.2 mm20w 5d 87% Hadlock Femur32.4 mm20w 1d 73% Hadlock Ylhvxbq16.4 mm 45% Chitty HC / AC1.05 2% Hadlock TWI706 g20w 1d 91% Hadlock EFW (lb)0 lb EFW (oz)12 oz EFW by:Hadlock (FPE-DX-EM-FL) Extended Vp6.0 mm CM4.4 mm 36% Nicolaides Nasal bone4.7 mm Head / Face / Neck Cephalic index0.74 10% Nicolaides Nasal bone:present Extremities / Bony Struc FL / BPD0.74 92% Hadlock FL / HC0.20 96% Hadlock FL / AC0.21 35% Hadlock Other Structures VNY472 bpm Anatomy Cranium:Normal Lateral ventricles:Normal Choroid plexus:Normal Midline falx:Normal Cavum septi pellucidi:Normal Cerebellum:Normal Cisterna magna:Normal Head / Neck Head size:Normal Head shape:Normal Rt lateral ventricle:Normal Lt lateral ventricle:Normal Rt choroid plexus:Normal Lt choroid plexus:Normal Thalami:Normal Cerebellar lobes:Normal Vermis:Normal Neck:Normal Neck:No neck masses seen, No neck masses seen Lips:Normal Profile:Normal Nose:Normal Face Nasal bone:present Maxilla:Normal Mandible:Normal Orbits:Normal 4-chamber view:Normal RVOT view:Normal LVOT view:Normal 3-vessel view:Normal 4-pigjui-mgxbeec view:Normal Heart / Thorax Situs:situs solitus (normal) Aortic arch view:Normal Bicaval view:Normal Cardiac position:levocardia (normal) Cardiac axis:Normal Cardiac size:normal (approx. 1/3 of thoracic area) Cardiac proportions:proportioned (normal) Cardiac rhythm:regular (normal) Rt lung:Normal Lt lung:Normal Rt diaphragm:Normal Lt diaphragm:Normal Cord insertion:Normal Stomach:Normal Kidneys:Normal Bladder:Normal Genitals:Normal Abdomen Abdom. wall:Normal Stomach:Stomach size and situs appear normal, Stomach size and situsappear normal Rt kidney:Normal Lt kidney:Normal Small bowel:Normal Large bowel:Normal Cervical spine:Normal Thoracic spine:Normal Lumbar spine:Normal Sacral spine:Normal Arms:Normal Hands:normal Legs:Normal Feet:normal Rt upper arm:Normal Rt forearm:Normal Rt hand:Normal Rt fingers:Normal Lt upper arm:Normal Lt forearm:Normal Lt hand:Normal Lt fingers:Normal Rt upper leg:Normal Rt lower leg:Normal Rt foot:Normal Rt toes:Normal Lt upper leg:Normal Lt lower leg:Normal Lt foot:Normal Lt toes:Normal Position of hands:Normal Position of feet:Normal Wants to know sex:no Genetic Screen Age28 yrs Echogenic focus:no Ventriculomegaly:no Nuchal fold:normal Echogenic bowel:no Pyelectasis:no Short femur:no Short humerus:no Nasal bone:present Display risk:Risk at time of screening Maternal Structures Uterus / Cervix Uterus:Visualized Uterus details:Normal Uterus position:anteverted Cervix:Visualized Cervix details: Long and closed Cervical .0 mm Ovaries / Tubes / Adnexa Rt ovary:Not visualized Lt ovary:Visualized Lt ovary details:Normal Lt ovary D134.3 mm Lt ovary D226.8 mm Lt ovary D315.3 mm Lt ovary Vol7.4 cm Cul de Sac / Bladder / Kidneys / Other Cul de Sac:Visualized Free fluid:No free fluid visualized us Layo Courtney DO IMG OB US PROCEDURES Florina l Result documented in this encounter Visit Diagnoses Diagnosis (HHS-HCC) documented in this encounter Care Teams Shower Maid Relationship Specialty Start Date End Date Allyssa Robles, RN Registered Nurse Reproductive Endocrinology and Infertility 12/25/23 documented as of this encounter
--- OUTSIDE RECORDS SUMMARY | 2024-10-11 14:40 | XMS_ITS | Encounter Summary ---
Author Organization [facility] Address [address] [place] [address] Care Team Providers Care Floor Finisher Helper Name Role Phone Unavailable Primary Care Provider Unavailabl e Reason for Visit * Reason Comments Routine Visit Encounter Details Date Type Department Care Team (Late st Contact Info) Description 10/11/2024 2:40 PM EDT Routine [facility] [place] [address] [place] [id number] Layo Courtney [facility] Abhinav [place], [place] [address] Second trimester ; 19 weeks gestation of ; Pruritus 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 Tobacco Use Types Packs/Day Years [...] on file documented as of this encounter Last Filed Vital Signs Vital Sign Reading Time Taken Comments Blood Pressure 112/74 10/11/2024 2:41 PM EDT Pulse - - Temperature - - Respiratory Rate - - Oxygen Saturation - - Inhaled Oxygen Concentration - - Weight 90.2 kg (198 lb 12.8 oz) 10/11/2024 2:41 PM EDT Height - - Body Mass Index 35.22 09/17/2022 12:00 PM EDT documented in this encounter Plan of Treatment Upcoming Encounters Date Type Department Care Team (Late st Contact Info) Description 11/08/2024 2:40 PM EDT Routine [facility] [address] [place] [address] Layo Courtney, [address] [place] [address] Scheduled Orders Name Type Priority Associated Diagnoses Orde r Schedule Hepatitis C antibody Lab Routine Pruritus Expected: 10/11/2024 (Approximate), Expires: 10/11/2025 Hepatic function panel Lab Routine Pruritus Expected: 10/11/2024 (Approximate), Expires: 10/11/2025 TSH Lab Routine Pruritus Expected: 10/11/2024 (Approximate), Expires: 10/11/2025 Bile acids, total Lab Routine Pruritus Expected: 10/11/2024 (Approximate), Expires: 10/11/2025 CBC and differential Lab Routine Pruritus Expected: 10/11/2024 (Approximate), Expires: 10/11/2025 documented as of this encounter Visit Diagnoses Diagnosis Second trimester state, incidental 19 weeks gestation of Pruritus Unspecified pruritic disorder documented in this encounter
--- OUTSIDE RECORDS SUMMARY | 2024-10-11 15:12 | XMS_ITS | Clinical Summary ---
Author Organization [facility] Address [address] [place] [address] Phone Care Team Providers Care Motor Vehicle Assembly Supervisor Name Role Phone Allyssa Robles RN Unavailable Unavailable Allergies Active Allergy Reactions Criticality Noted Date Comments Latex Rash Low 2023 Nickel Rash Low 2023 Medications lzetxheu47-vihz- folic-omega3 29-1-400 mg combo pack,tablet and cap,DR [...] Encounters Date Type Department Care Team Description 10/07/2024 7:31 AM EDT - 10/07/2024 11:59 PM EDT Hospital Encounter Valeria Hay [address] [place] [address] ([facility]) Discharge Disposition: Home 10/07/2024 Travel 08/15/2024 Abstract Valeria Hay [address] [place] [address] Layo Courtney, 07/11/2024 4:00 PM EDT Office Visit [address] [place] [address] Donya Abernathy, [employer] Fertility testing (Primary Dx); Encounter to determine viability of , single or unspecified fetus 07/11/2024 3:30 PM EDT Ancillary Procedure Valeria Hay [address] [place] [address] Encounter to determine viability of , not applicable or unspecified fetus 07/11/2024 Travel from Last 3 Months Family History [...] No / Unsure 10/07/2024 7:29 AM EDT Last Filed Vital Signs Vital Sign Reading [...] 03/22/2024 8:29 AM EST Plan of Treatment Health Maintenance Due Date Last Done Comments [...] d or Tdap) 12/21/2019 12/20/2009 COVID-19 Vaccine (1 - 2023-2 5 season) 2024 Influenza Vaccine [...] DETAIL ANATOMY Routine 10/07/2024 9:24 AM EDT ([facility]) PROGESTERONE Routine 07/11/2024 4:12 PM EDT Fertility testing US OB TRANSVAGINAL Routine 07/11/2024 3: 43 PM EDT Encounter to determine viability of , not applicable or unspecified fetus HEPATITIS C ANTIBODY Routine 2023 10:21 AM EDT Screening for STDs (sexually transmitted diseases) HIV 1/2 ANTIGEN/ANTIBODY SCREEN WIH REFLEX TO CONFIRMATION Routine 2023 10:21 AM EDT Screening for STDs (sexually transmitted diseases) from Last 3 Months or Most Recently Relevant to Health Maintenance Results * US OB detail anatomy (10/07/2024 [...] EFW (oz) 12 oz EFW by: Hadlock ([id number]) Extended Gasoline Tractor Operator 6.0 mm CM 4.4 mm 36% Nicolaides [...] Normal LVOT view: Normal 3-vessel view: Normal 3-bnvtso-lhwzigi view: Normal Heart / Thorax Situs: situs [...] via Assisted[employer]roductive [employer] History ====== General History Emdphq007 cm Height (ft)5 ft Height (in)3 in Previous Outcomes Gravida1 Para0 Maternal Assessment Ukwyul531 cm Height (ft)5 ft Height (in)3 in Cqpxeo40 kg Weight (lb)165 lb Weight gain0 kg [...] 87% Hadlock Femur32.4 mm20w 1d 73% Hadlock Cxldmij95.4 mm 45% Chitty HC / AC1.05 2% Hadlock NPJ893 g20w 1d 91% Hadlock EFW (lb)0 lb EFW (oz)12 oz EFW by:Hadlock ([id number]-UE-[id number]-FL) Extended Vp6.0 mm CM4.4 mm 36% Nicolaides Nasal bone4.7 mm Head / Face / Neck Cephalic index0.74 10% Nicolaides Nasal bone:present Extremities / Bony Struc FL / BPD0.74 92% Hadlock FL / HC0.20 96% Hadlock FL / AC0.21 35% Hadlock Other Structures OBY402 bpm Anatomy Cranium:Normal Lateral ventricles:Normal Choroid plexus:Normal [...] view:Normal RVOT view:Normal LVOT view:Normal 3-vessel view:Normal 0-asetrq-guajyrd view:Normal Heart / Thorax Situs:situs solitus (normal) [...] Cervix:Visualized Cervix details: Long and closed Cervical ylssfv81.0 mm Ovaries / Tubes / Adnexa Rt ovary:Not visualized Lt ovary:Visualized Lt ovary details:Normal Lt ovary D134.3 mm Lt ovary D226.8 mm Lt ovary D315.3 mm Lt ovary Vol7.4 cm Cul de Sac / Bladder / Kidneys / Other Cul de Sac:Visualized Free fluid:No free fluid visualized us Layo Courtney DO IMG OB US PROCEDURES Florina l Result * Progesterone (07/11/2024 4:12 PM EDT) Pathologist [facility] PROGESTERONE 53.5 ng/mL WORKING OUT WORKS [facility] Comment: Reference Ranges Female Follicular Phase < 1.0 Luteal Phase 2.6-21.5 Post menopausal < 0.5 1st Trimester 4.1-34.0 2nd Trimester 24.0-76.0 3rd Trimester 52.0-302.0 Blood Venous blood specimen / Unknown 07/11/2024 4:12 PM EDT 07/11/2024 4:12 PM EDT us Donya Abernathy [employer] LAB BLOOD ORDERABLES Florina l Result [facility] [address] Q[address]branch [address], [address] [place] [phone] * US OB transvaginal (07/11/2024 3:43 PM [...] CRL6.2 mm6w 5d 52% Pexsters Cardiac activity:present XQX915 bpm Placenta:circumferential Maternal Structures Uterus / Cervix [...] OB US PROCEDURES Final Re sult * Hepatitis C Antibody (2023 10:21 AM EDT) Hepatitis C AB Nonreactive Nonreactive LAB IMMUNOASSAY METHOD 2023 7:11 PM EDT [facility] Comment:Results from patient s taking biotin supplements or receiving high-dose biotin therapy should be interpreted with caution due to possible interference with this test. Providers may contact their local laboratory for further information. Blood Venous blood specimen / Unknown Venipuncture / Unknown 2023 10:21 AM EDT 2023 10:21 AM EDT Trish Christ Sun [employer] LAB BLOOD ORDERABLES Fin al Result Performing Organization Address [facility]/ZIP Co de Phone Number [facility] [id number] [place] [id number] * HIV 1/2 Antigen/Antibody Screen with Reflex to Confirmation (2023 10:21 AM EDT) HIV 1/2 Antigen/Antibo dy Screen with Reflex to Confirmation Nonreactive Nonreactive LAB IMMUNOASSAY METHOD 2023 7:37 PM EDT [facility] Blood Venous blood specimen / Unknown Venipuncture / Unknown 2023 10:21 AM EDT 2023 10:21 AM EDT Narrative [facility] - 2023 7:37 PM EDT HIV Ag/Ab screen is performed using the Siemens Beep HIV Ag/Ab Combo assay which detects the presence of HIV p24 antigen as well as antibodies to HIV-1 (Group M and O) and HIV-2. No laboratory evidence of HIV infection. If acute HIV infection is suspected, consider testing for HIV RNA by PCR (viral load). Trish Christ Dino [employer] LAB BLOOD ORDERABLES Fin al Result Performing Organization Address [facility] Co de Phone Number [facility] [address] [place] [phone] from Last 3 Months or Most Recently Relevant to Health Maintenance Insurance [employer] Care Teams Motor Vehicle Assembly Supervisor Relationship Specialty Start Date End Date Allyssa Robles, RN Registered Nurse Reproductive Endocrinology and Infertility 12/25/23
--- OUTSIDE RECORDS SUMMARY | 2024-10-11 15:12 | XMS_ITS | Encounter Summary ---
Author Organization [facility] Address [address] [place] [address] [address] Care Team Providers Care College Dean Name Role Phone Unavailable Primary Care Provider Unavailabl e Encounter Details Date Type Department Care Team (Late st Contact Info) Description 03/23/[address] [facility] [address] [place] [address] Cassy Licea LPN [address] [place] [address] 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 Tobacco Use Types Packs/Day [...] Description 11/08/2024 2:40 PM EDT Routine [facility] [address] [place] [address] Layo Courtney, DO [address] [place], [facility]11 documented as of this encounter Visit Diagnoses Not on filedocumented in this encounter
--- OUTSIDE RECORDS SUMMARY | 2024-10-11 15:12 | XMS_ITS | Encounter Summary ---
Author Organization [facility] Address [address] [place] [address] Care Team Providers Care Marine Underwriter Name Role Phone Unavailable Primary Care Provider Unavailabl e Encounter Details Date Type Department Care Team (Late st Contact Info) Description 09/21/2024 Abstract [facility] OB [address] [place] [address] Layo Courtney, DO [facility] [place] [address] 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 Tobacco Use Types Packs/Day [...] Description 11/08/2024 2:40 PM EDT Routine [facility] [address] [place] [address] Layo Courtney, DO [address] [place], [facility] documented as of this encounter Visit Diagnoses Not on filedocumented in this encounter
--- OUTSIDE RECORDS SUMMARY | 2024-10-11 15:12 | XMS_ITS | Encounter Summary ---
Author Organization [facility] Address [address] [place] [address] Care Team Providers Care Wet Suit Gluer Name Role Phone Unavailable Primary Care Provider Unavailabl e Encounter Details Date Type Department Care Team (Late st Contact Info) Description 10/04/2024 Telephone [facility] [address] [address] Brandy Sheehan PA [address] [place] [address] 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 Tobacco Use Types Packs/Day [...] encounter Miscellaneous Notes * Telephone Encounter - Cassy Licea LPN - 10/04/2024 3:57 PM EDT Patient called with complaints of itching and rash all over mainly inside/outside of legs, stomach . Patient has tried Benadryl and not working. Patient was advised we will send in a Medrol Dosepak for her and that she can try Pepcid and Zrytecfirst then then dosepak. PVU and scripts sent to pharmacy. documented in this encounter Plan of Treatment Upcoming Encounters Date Type Department Care Team (Late st Contact Info) Description 11/08/2024 2:40 PM EDT Routine [facility] [address] [phone] Layo Courtney, [address] [place] [address] documented as of this encounter Visit Diagnoses Diagnosis Gastroesophageal reflux in Pruritus of in second trimester documented in this encounter
--- OUTSIDE RECORDS SUMMARY | 2024-10-11 15:12 | XMS_ITS | Encounter Summary ---
Author Organization [facility] Address [address] [place] [address] Phone Care Team Providers Care Military Science Teacher Name Role Phone Allyssa Robles RN Unavailable Unavailable Encounter Details Date Type Department Care Team (Late st Contact Info) Description 06/07/2024 Lab Requisition [facility] [address] [place] [phone] America Chavez, TRANSFORMER MAKER-AUTOMOTIVE TITLE CLERK [address] [place] [address] Female infertility, unspecified 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 Tobacco Use [...] LAB IMMUNOASSAY METHOD 06/10/2024 8:33 PM EST [facility] Comment: Blood Venous blood specimen / Unknown 06/07/2024 8:45 AM EST 06/07/2024 10:22 AM EST Narrative [facility] - 06/10/2024 8:33 PM EST REF VALUES Male <0.2-0.8 Follicular Phase <0.2-1.5 Luteal Phase 7.4-15.4 Post Menopausal <0.2-0.2 1ST Trimester 12.0-84.0 2ND Trimester 10.2-58.8 3RD Trimester 46.5-160 Progesterone is performed using the Faith Keystone Heart Access Immunoassay. Progesterone testing is performed using a different test methodology at [facility] than other [facility]. Direct result comparison should only be made within the same method. America Chavez APRNPPG IndustriesAUTOMOTIVE TITLE CLERK LAB BLOOD ORDERABLES Edite d Result - Final Performing Organization Address City/State/[facility] Co de Phone Number [facility] [address] [place] [phone] * Estradiol (06/07/2024 8:45 AM EST) Estradiol 2,870 pg/mL LAB IMMUNOASSAY METHOD 06/07/2024 10:43 AM EST [facility] Blood Venous blood specimen / Unknown 06/07/2024 8:45 AM EST 06/07/2024 10:22 AM EST Narrative [facility] - 06/07/2024 10:43 AM EST REF VALUES FOLLICULAR PHASE 20-144 MID CYCLE 64-357 LUTEAL PHASE 56-214 POSTMENOPAUSE < 32 PREPUBERTY < 20 FEMALE 10-18Y 8-110 MALE 10-18Y < 20 ADULT MALE < 40 America Chavez TRANSFORMER MAKER-AUTOMOTIVE TITLE CLERK LAB BLOOD ORDERABLES Final Result [facility] [address] [place] [address] documented in this encounter Visit Diagnoses Diagnosis Female infertility, unspecified documented in this encounter Care Teams Military Science Teacher Relationship Specialty Start Date End Date Allyssa Robles, MISHEL Registered Nurse Reproductive Endocrinology and Infertility 12/25/23 documented as of this encounter
--- OUTSIDE RECORDS SUMMARY | 2024-10-11 15:12 | XMS_ITS | Encounter Summary ---
Author Organization [facility] Address [address] [place] [place] [address] Care Team Providers Care Toxicologist Name Role Phone Unavailable Primary Care Provider Unavailabl e Encounter Details Date Type Department Care Team (Late st Contact Info) Description 04/13/2023 Clinisync Result Encounter [facility] External Department Unsolicited Rula Courtney, [facility] [place] [phone] 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 Tobacco Use Types Packs/Day Years [...] Description 11/08/2024 2:40 PM EDT Routine [facility] [address] [place] [address] Rula Courtney [facility] [place] [phone] documented as of this encounter Procedures Procedure Name Priority Date/Time Associated Diagnosis Comments FL HYSTEROSALPINGOGRAM 10:54 AM EST documented in this encounter Results * FL HYSTEROSALPINGOGRAM (04/13/2023 10:54 AM EST) Anatomical Region Laterality Modality Other 04/13/2023 10:5 4 AM EST Narrative 04/13/2023 10:56 [place] [address] Fluoroscopy Report Signed Patient: OLENA PEREYRA MR#: [id number] : 1995 Acct:[id number] Age/Sex: 27 / F ADM Date: 04/10/23 Loc: LAB Attending Dr: Rula Courtney D.O. Ordering Physician: Rula Courtney D.O. Date of Service: 04/10/23 Procedure(s): FL Hysterosal cath placement Accession Number(s): [id number] cc: Rula Courtney D.O.; Physician,Non-Staff [place] [address] Patient Name: OLENA PEREYRA MRN: [id number] date: 1995 Sex: F Assigned Patient Location: LAB Current Patient Location: LAB Accession/Order Number: [id number] Exam Date: 04/10/2023 14:30 Report Date: 04/13/2023 10:54 At the request of: RULA COURTNEY Procedure: FL Hysterosal cath placement EXAM: FL Hysterosal cath placement HISTORY: Infertility TECHNIQUE: FINDINGS: Please see Operative Report. Electronically authenticated by: DARRYN LONDON Date: 04/13/2023 10:54 Dictated By: Darryn London Signed By: 04/13/23 1056 DD/ 1054 TD/TT: School Of Nursing Director: Procedure Note Radiology, Radiologist, MD - 04/13/2023 [place] [address] Fluoroscopy Report Signed Patient: OLENA PEREYRA RMR#: [id number] : 1995Acct:[id number] Age/Sex: 27 / FADM Date: 04/10/23 Loc: LAB Attending Dr: Rula Courtney D.O. Ordering Physician: Rula Courtney D.O. Date of Service: 04/10/23 Procedure(s): FL Hysterosal cath placement Accession Number(s): [id number] cc: Rula Courtney D.O.; Physician,Non-Staff [place] [address] [place] [id number] Patient Name: OLENA PEREYRA MRN: [id number] date: 1995 Sex: F Assigned Patient Location: LAB Current Patient Location: LAB Accession/Order Number: [id number] Exam Date: 04/10/2023 14:30 Report Date: 04/13/2023 10:54 At the request of: RULA COURTNEY Procedure: FL Hysterosal cath placement EXAM: FL Hysterosal cath placement HISTORY: Infertility TECHNIQUE: FINDINGS: Please see Operative Report. Electronically authenticated by: DARRYN LONDON Date: 04/13/2023 10:54 Dictated By: Darryn London Signed By:04/13/23 1056 DD/ 1054 TD/TT: School Of Nursing Director: us Rula Courtney DO [facility] Final Result documented in this encounter Visit Diagnoses Not on filedocumented in this encounter
--- OUTSIDE RECORDS SUMMARY | 2024-10-11 15:12 | XMS_ITS | Encounter Summary ---
Author Organization [facility] Address [address] [place] [address] Care Team Providers Care Sap Business Objects Developer Name Role Phone Unavailable Primary Care Provider Unavailabl e Encounter Details Date Type Department Care Team (Late st Contact Info) Description 09/21/2024 Abstract [facility] [address] [place] [address] Layo Courtney, DO [facility] [place] [address] 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 Tobacco Use Types Packs/Day [...] Description 11/08/2024 2:40 PM EDT Routine [facility] [address] [place] [address] Layo Courtney, DO [address] [place], [facility]11 documented as of this encounter Visit Diagnoses Not on filedocumented in this encounter
--- OUTSIDE RECORDS SUMMARY | 2024-10-11 15:12 | XMS_ITS | Clinical Summary ---
Author Organization [facility] Address [address] [place] [address] Care Team Providers Care National Secretary Name Role Phone Unavailable Primary Care Provider Unavailabl e Allergies Active Allergy Reactions Criticality Noted Date Comments Azithromycin Unknown 03/16/2023 Other Reaction(s): Unknown Latex Rash Low 03/16/2023 Other Reaction(s): Itching Nickel Itching,Rash Low 03/16/2023 Medications MV-Min-Fe Fum-FA-DHA ( 1 PO) Take 1 each by mouth Daily Active cephalexin (Keflex) 500 MG capsule Take 500 mg by mouth in the morning and 500 mg before bedtime. 09/22/19 25 Active famotidine (Pepcid) 20 MG tabletIndicati ons:Gastroesop hageal Reflux Disease,Heartb urn Take 1 tablet (20 mg) by mouth Daily 30 tablet 11 10/05/19 25 025 Active cetirizine (ZyrTEC ALLERGY) 10 MG tabletIndicati ons:Pruritus of in second trimester Take 1 tablet (10 mg) by mouth Daily 30 tablet 11 10/05/19 25 026 Active methylPREDNISo lone (Medrol Dospak) 4 MG tabletsIndicat ions:Pruritus of in second trimester Day 1: 6 tablets Day 2: 5 tablets Day 3: 4 tablets Day 4: 3 tablets Day 5: 2 tablets Day 6: 1 tablet 21 tablet 10/05/19 25 Active hydrOXYzine pamoate (Vistaril) 25 MG capsuleIndicat ions:Pruritus Take 1 capsule (25 mg) by mouth every 6 (six) hours if needed for itching for up to 10 days 30 capsule 10/12/19 25 025 Active permethrin (Elimite) 5 % creamIndicatio ns:Pruritus Apply topically 1 (one) time for 1 dose 60 g 10/12/19 25 025 Active estradiol (Estrace) 2 MG tablet Insert 2 mg into the vagina in the morning and 2 mg in the evening. 06/06/19 25 025 Discontinued progesterone 50 MG/ML injection Inject 75 mg into the shoulder, thigh, or buttocks in the morning. 03/29/20 24 025 Discontinued cholecalcifero l (Vitamin D-3) 125 MCG (5000 UT) capsule Take 5,000 Units by mouth Daily 025 Discontinued Active Problems Estimated Date of Delivery Comme nts Yes 03/01/2025 Based on Ultraso und No known active problems Encounters Date Type Department Care Team Description 10/11/2024 2:40 PM EDT Routine [facility] [address] [place] [phone] Layo Courtney, Second trimester ; 19 weeks gestation of ; Pruritus 10/11/2024 Bamboo flowsheet [facility] [address] [place] [phone] Layo Courtney DO 10/07/2024 Clinisync Result Encounter [facility] External Department Unsolicited Layo Courtney, 10/04/[address] [facility] [address] [place] [address] Brandy Sheehan PA 09/23/20[address] [facility] [address] [place] [address] Maria Isabel Harry LPN 09/22/2024 9:40 AM EDT Routine [facility] [address] [place] [address] Brandy Sheehan PA 17 weeks gestation of ; Second trimester ; Abnormal urine 09/22/2024 Bamboo flowsheet [facility] [address] [place] [address] Brandy Sheehan PA 09/21/2024 Abstract [facility] [address] [place] [address] Layo Courtney, DO 09/21/2024 Abstract [facility] [address] [place] [address] [place] [address] Layo Courtney, DO 09/13/2024 Telephone [facility] [address] [place] [address] [place] [address] Niki Barbosa, PRISM INSPECTOR 09/06/2024 2:50 PM EDT Routine [facility] [address] [address] Brandy Sheehan PA STD exposure; Second trimester ; 14 weeks gestation of ; Screening, , for anatomic survey 09/06/2024 External Result Encounter [facility] External Department Unsolicited Brandy Sheehan PA 09/06/2024 Bamboo flowsheet [facility] [address] [place] [address] [place] [address] Brandy Sheehan PA 08/29/2024 Clinisync Result Encounter [facility] External Department Unsolicited Layo Courtney, DO 08/12/2024 Telephone [facility] [address] [place] [address] [place] [address] Niki Barbosa, PRISM INSPECTOR 08/08/2024 1:00 PM EDT Routine [facility] [address] [place] [address] Layo Courtney, DO 10 weeks gestation of ; First trimester ; resulting from in vitro fertilization in first trimester 08/08/2024 Bamboo flowsheet [facility] [address] [place] [address] Layo Courtney, DO 08/02/2024 Abstract [facility] [address] [place] [address] Layo Courtney, DO 07/29/2024 9:30 AM EDT Initial [facility] [address] [place] [address] GA: 9w2d from Last 3 Months Family [...] 12.8 oz) 10/11/2024 2:41 PM EDT Height 160 cm (5' 3 ) 09/17/2022 12:00 PM EDT Body Mass Index 35.22 09/17/2022 12:00 PM EDT Plan of Treatment Upcoming Encounters Date Type Department Care Team (Late st Contact Info) Description 11/08/2024 2:40 PM EDT Routine [facility] [address] [address] Layo Courtney, DO [address] [place] [address] [place] [address] Health Maintenance Due Date Last Done Comments Influenza Vaccine (Season Ended) 2025 Procedures Procedure Name Priority Date/Time Associated Diagnosis Comments US OB DETAIL ANATOMY 10/07/2024 7:31 AM EDT URINARY TRACT INFECTION (HTRX) Routine 09/22/2024 12:54 PM EDT POCT URINALYSIS DIPSTICK Routine 09/22/2024 9:54 AM EDT 17 weeks gestation of Second trimester RECURRENT VAGINITIS (HTRX) Routine 09/06/2024 3:59 PM [...] menses from Last 3 Months Results * US OB detail anatomy (10/07/2024 7:31 AM EDT) Anatomical Region Laterality Modality Body Ultrasound 10/07/2024 7:31 AM EDT Narrative 10/07/2024 10:24 AM EDT Source Facility: [facility] Interpreted by: Ad Ovalle Indication ======== Screening [...] Weight gain (lb) 0 lb BMI 29.23 kg/m??? Physical Exam Initial weight (lb) 165 lb [...] EFW (oz) 12 oz EFW by: Hadlock ([id number]) Extended Installation Service Representative 6.0 mm CM 4.4 mm 36% Nicolaides [...] Normal LVOT view: Normal 3-vessel view: Normal 6-vkzqsh-tbxpqvx view: Normal Heart / Thorax Situs: situs [...] D3 15.3 mm Lt ovary Vol 7.4 cm??? Cul de Sac / Bladder / Kidneys / Other Cul de Sac: Visualized Free fluid: No free fluid visualized Procedure Note Radiology, Radiologist, - 10/07/2024 Source Facility: [facility] Interpreted by: Ad Ovalle Indication ======== Screening for Abnormalities, Conceived via AssistedReproductive Technology History ====== General History Height 160 cm Height (ft) 5 ft Height (in) 3 in Previous Outcomes 1 Para 0 Maternal Assessment Height 160 cm Height (ft) 5 ft Height (in) 3 in Weight 75 kg Weight (lb) 165 lb Weight gain 0 kg Weight gain (lb) 0 lb BMI 29.23 kg/m??? Physical Exam Initial weight (lb) 165 lb [...] EFW (oz) 12 oz EFW by: Hadlock ([id number]) Extended Installation Service Representative 6.0 mm CM 4.4 mm 36% Nicolaides [...] Normal LVOT view: Normal 3-vessel view: Normal 6-atohyl-czmztzy view: Normal Heart / Thorax Situs: situs [...] normal, Stomach size and situsappear normal Rt kidney: Normal Lt kidney: Normal [...] D3 15.3 mm Lt ovary Vol 7.4 cm??? Cul de Sac / Bladder / Kidneys / Other Cul de Sac: Visualized Free fluid: No free fluid visualized us Layo Courtney DO IM OB US PROCEDURES Final Resul t * (ABNORMAL) URINARY TRACT INFECTION (HTRX) (09/22/2024 12:54 PM EDT) ACINETOBACTER BAUMANII 0.000 19.961 - 24.689 ppm 09/23/2024 6:23 AM EDT [facility] ACINETOBACTER BAUMANII Not Detected 19.961 - 24.689 ppm 09/23/2024 6:23 AM EDT [facility] CITROBACTER FREUNDII 0.000 23.000 - 31.881 ppm 09/23/2024 6:23 AM EDT [facility] CITROBACTER FREUNDII Not Detected 23.000 - 31.881 ppm 09/23/2024 6:23 AM EDT [facility] ENTEROBACTER AEROGENES, CLOACAE 0.000 23.000 - 31.535 ppm 09/23/2024 6:23 AM EDT [facility] ENTEROBACTER AEROGENES, CLOACAE Not Detected 23.000 - 31.535 ppm 09/23/2024 6:23 AM EDT [facility] ENTEROCOCCUS FAECALIS, FAECIUM 0.000 26.000 - 31.575 ppm 09/23/2024 6:23 AM EDT [facility] ENTEROCOCCUS FAECALIS, FAECIUM Not Detected 26.000 - 31.575 ppm 09/23/2024 6:23 AM EDT [facility] ESCHERICHIA COLI 0.000 23.000 - 28.500 ppm 09/23/2024 6:23 AM EDT [facility] ESCHERICHIA COLI Not Detected 23.000 - 28.500 ppm 09/23/2024 6:23 AM EDT [facility] KLEBSIELLA PNEUMONIAE, OXYTOCA 0.000 23.000 - 30.500 ppm 09/23/2024 6:23 AM EDT [facility] KLEBSIELLA PNEUMONIAE, OXYTOCA Not Detected 23.000 - 30.500 ppm 09/23/2024 6:23 AM EDT [facility] MORGANELLA MORGANII 0.000 19.961 - 24.689 ppm 09/23/2024 6:23 AM EDT [facility] MORGANELLA MORGANII Not Detected 19.961 - 24.689 ppm 09/23/2024 6:23 AM EDT [facility] PROTEUS MIRABILIS, VULGARIS 0.000 23.000 - 28.500 ppm 09/23/2024 6:23 AM EDT [facility] PROTEUS MIRABILIS, VULGARIS Not Detected 23.000 - 28.500 ppm 09/23/2024 6:23 AM EDT [facility] PSEUDOMONAS AERUGINOSA 0.000 23.000 - 28.500 ppm 09/23/2024 6:23 AM EDT [facility] PSEUDOMONAS AERUGINOSA Not Detected 23.000 - 28.500 ppm 09/23/2024 6:23 AM EDT [facility] STAPHYLOCOCCUS AUREUS 0.000 26.000 - 30.902 ppm 09/23/2024 6:23 AM EDT [facility] STAPHYLOCOCCUS AUREUS Not Detected 26.000 - 30.902 ppm 09/23/2024 6:23 AM EDT [facility] STREPTOCOCCUS AGALACTIAE (GROUP B STREP) 0.000 26.000 - 32.222 ppm 09/23/2024 6:23 AM EDT [facility] STREPTOCOCCUS AGALACTIAE (GROUP B STREP) Not Detected 26.000 - 32.222 ppm 09/23/2024 6:23 AM EDT [facility] PRESTON ALBICANS, PARAPSILOSIS, TROPICALIS 0.000 19.961 - 30.770 ppm 09/23/2024 6:23 AM EDT [facility] PRESTON ALBICANS, PARAPSILOSIS, TROPICALIS Not Detected 19.961 - 30.770 ppm 09/23/2024 6:23 AM EDT [facility] PRESTON GLABRATA 0.000 23.000 - 32.138 ppm 09/23/2024 6:23 AM EDT [facility] PRESTON GLABRATA Not Detected 23.000 - 32.138 ppm 09/23/2024 6:23 AM EDT [facility] PRESTON KRUSEI 0.000 23.000 - 32.271 ppm 09/23/2024 6:23 AM EDT [facility] PRESTON KRUSEI Not Detected 23.000 - 32.271 ppm 09/23/2024 6:23 AM EDT [facility] SERRATIA MARCESCENS 0.000 23.000 - 31.204 ppm 09/23/2024 6:23 AM EDT [facility] SERRATIA MARCESCENS Not Detected 23.000 - 31.204 ppm 09/23/2024 6:23 AM EDT [facility] STREPTOCOCCUS PYOGENES (GROUP A STREP) 0.000 19.961 - 24.689 ppm 09/23/2024 6:23 AM EDT [facility] STREPTOCOCCUS PYOGENES (GROUP A STREP) Not Detected 19.961 - 24.689 ppm 09/23/2024 6:23 AM EDT [facility] STAPHYLOCOCCUS EPIDERMIDIS, HAEMOLYTICUS, LUGDUNENSIS, SAPROPHYTICUS (URINA 0.000 19.961 - 24.689 ppm 09/23/2024 6:23 AM EDT [facility] STAPHYLOCOCCUS EPIDERMIDIS, HAEMOLYTICUS, LUGDUNENSIS, SAPROPHYTICUS (URINA Not Detected 19.961 - 24.689 ppm 09/23/2024 6:23 AM EDT [facility] STAPHYLOCOCCUS EPIDERMIDIS, HAEMOLYTICUS, LUGDUNENSIS, SAPROPHYTICUS (URINA 30.380(A) 19.961 - 24.689 ppm 09/23/2024 6:23 AM EDT [facility] STAPHYLOCOCCUS EPIDERMIDIS, HAEMOLYTICUS, LUGDUNENSIS, SAPROPHYTICUS (URINA Detected(A) 19.961 - 24.689 ppm 09/23/2024 6:23 AM EDT [facility] ERMB, C; MEFA 18.368(A) 23.000 - 27.611 ppm 09/23/2024 6:23 AM EDT [facility] ERMB, C; MEFA Detected(A) 23.000 - 27.611 ppm 09/23/2024 6:23 AM EDT [facility] TET B, TET M 17.822(A) 23.000 - 27.778 ppm 09/23/2024 6:23 AM EDT [facility] TET B, TET M Detected(A) 23.000 - 27.778 ppm 09/23/2024 6:23 AM EDT [facility] Urine 09/22/2024 12:5 4 PM EDT 09/23/2024 1:28 AM EDT Brandy Epworth PA LAB BLOOD ORDERABLES Final Resul t [facility] [address] [place] [address] * (ABNORMAL) POCT urinalysis dipstick manually resulted (09/22/2024 9:54 AM EDT) Only the most recent of4 resultswithin the time period is included. Color, UA Straw Clarity, UA Clear Glucose, UA Negative Negative - 2000(110) ++++ mg/dL Bilirubin, UA Negative Negative - 4(70) +++ mg/dL Ketones, UA Negative Negative - 160(16) ++++ mg/dL Spec Grav, UA 1.030 1 - 1.03 Blood, UA Negative Negative - 50 Jose/mcL pH, UA 5.5 5 - 9 Protein, UA Negative Negative - 2000(20) ++++ mg/dL Urobilinogen, UA 0.2 0.2 - 12 mg/dL Leukocytes, UA Trace Negative - 500+++ Onel/mcL Nitrite, UA Negative Negative - Positive Urine 09/22/2024 9:54 AM EDT Brandy SEARS POINT OF CARE TEST ENTER/EDIT OR DERABLES Final Result * RECURRENT VAGINITIS (HTRX) (09/06/2024 3:59 PM EDT) ATOPOBIUM VAGINAE 0.000 19.961 - 24.689 ppm 09/07/2024 6:01 AM EDT [facility] ATOPOBIUM VAGINAE Not Detected 19.961 - 24.689 ppm 09/07/2024 6:01 AM EDT [facility] BVAB 2,3 (BACTERIAL VAGINOSIS ASSOCIATED BACTERIA 2, 3); MOBILUNCUS SPP 0.000 19.961 - 24.689 ppm 09/07/2024 6:01 AM EDT [facility] BVAB 2,3 (BACTERIAL VAGINOSIS ASSOCIATED BACTERIA 2, 3); MOBILUNCUS SPP Not Detected 19.961 - 24.689 ppm 09/07/2024 6:01 AM EDT [facility] PRESTON ALBICANS, PARAPSILOSIS, TROPICALIS 0.000 19.961 - 30.770 ppm 09/07/2024 6:01 AM EDT [facility] PRESTON ALBICANS, PARAPSILOSIS, TROPICALIS Not Detected 19.961 - 30.770 ppm 09/07/2024 6:01 AM EDT [facility] PRESTON GLABRATA 0.000 23.000 - 32.138 ppm 09/07/2024 6:01 AM EDT [facility] PRESTON GLABRATA Not Detected 23.000 - 32.138 ppm 09/07/2024 6:01 AM EDT [facility] PRESTON KRUSEI 0.000 23.000 - 32.271 ppm 09/07/2024 6:01 AM EDT [facility] PRESTON KRUSEI Not Detected 23.000 - 32.271 ppm 09/07/2024 6:01 AM EDT [facility] CHLAMYDIA TRACHOMATIS 0.000 23.000 - 31.467 ppm 09/07/2024 6:01 AM EDT [facility] CHLAMYDIA TRACHOMATIS Not Detected 23.000 - 31.467 ppm 09/07/2024 6:01 AM EDT [facility] GARDNERELLA VAGINALIS 0.000 19.961 - 24.689 ppm 09/07/2024 6:01 AM EDT [facility] GARDNERELLA VAGINALIS Not Detected 19.961 - 24.689 ppm 09/07/2024 6:01 AM EDT [facility] MEGASPHAERA (TYPES 1, 2) 0.000 19.961 - 24.689 ppm 09/07/2024 6:01 AM EDT [facility] MEGASPHAERA (TYPES 1, 2) Not Detected 19.961 - 24.689 ppm 09/07/2024 6:01 AM EDT [facility] NEISSERIA GONORRHOEAE 0.000 23.000 - 32.117 ppm 09/07/2024 6:01 AM EDT [facility] NEISSERIA GONORRHOEAE Not Detected 23.000 - 32.117 ppm 09/07/2024 6:01 AM EDT [facility] TRICHOMONAS VAGINALIS 0.000 23.000 - 32.119 ppm 09/07/2024 6:01 AM EDT [facility] TRICHOMONAS VAGINALIS Not Detected 23.000 - 32.119 ppm 09/07/2024 6:01 AM EDT [facility] MYCOPLASMA GENITALIUM 0.000 19.961 - 24.689 ppm 09/07/2024 6:01 AM EDT [facility] MYCOPLASMA GENITALIUM Not Detected 19.961 - 24.689 ppm 09/07/2024 6:01 AM EDT [facility] Tissue 09/06/2024 3:59 PM EDT 09/07/2024 1:25 AM EDT Brandy SEARS LAB BLOOD ORDERABLES Final Resul t [facility] [address] [place] [id number] * HBSAG SCREEN (08/29/2024 4:35 PM EDT) [facility] HBSAG SCREEN Negative Negative [facility] Comment: Performed at: [address] [id number] Building Cleaning Supervisor: Jason Spangler PhD, Phone: [phone] 08/29/2024 4:35 PM EDT 08/29/2024 4:38 PM EDT Narrative [facility] - 08/31/2024 1:08 PM EDT Layo Courtney DO LAB BLOOD ORDERABLES Final Resul t [facility] * RAPID PLASMA REAGIN, QUANT (08/29/2024 4:35 PM EDT) [facility] RAPID PLASMA REAGIN, QUANT Non Reactive NonRea<1: 1 titer TB Comment: Please Note: This test does not meet current guidelines for screening and diagnosis of syphilis. This test is intended for following treatment response in patients being treated for syphilis infection. To screen for syphilis infection, a reflex cascade that includes both RPR and a treponema-specific assay should be utilized, such as Treponema pallidum (Syphilis) Screening [place] (378971) or Rapid Plasma Reagin (RPR) Test With Reflex to Quantitative RPR and Confirmatory Treponema pallidum Antibodies (687225). Performed at: [address] [id number] Building Cleaning Supervisor: Jason Spangler PhD, Phone: [phone] 08/29/2024 4:35 PM EDT 08/29/2024 4:38 PM EDT Narrative [facility] - 08/31/2024 1:08 PM EDT [facility] LAB BLOOD ORDERABLES Final Resul t Performing Organization Address [facility] de Phone Number [facility] * HIV AB/P24 AG WITH REFLEX (08/29/2024 4:35 PM EDT) Pathologist [facility] HIV AB/P24 AG SCREEN Non Reactive Non Reactive [facility] Comment: HIV-1/HIV-2 antibodies and HIV-1 p24 antigen were NOT detected. There is no laboratory evidence of HIV infection. HIV Negative Performed at: [address] [id number] Building Cleaning Supervisor: Jason Spangler PhD, Phone: [phone] 08/29/2024 4:35 PM EDT 08/29/2024 4:38 PM EDT Narrative [facility] - 08/31/2024 5:07 AM EDT [facility] LAB BLOOD ORDERABLES Final Resul t Performing Organization Address City/[facility] Co de Phone Number [facility] * HCV ANTIBODY RFX TO QUANT PCR (08/29/2024 4:35 PM EDT) HCV AB Non Reactive Non Reactive [facility] INTERPRETATION: Comment . TB Comment: Not infected with HCV unless early or acute infection is suspected (which may be delayed in an immunocompromised individual), or other evidence exists to indicate HCV infection. Performed at: [facility] [address] [id number] Building Cleaning Supervisor: Jason Spangler PhD, Phone: [phone] 08/29/2024 4:35 PM EDT 08/29/2024 4:38 PM EDT Narrative [facility] - 08/31/2024 8:08 AM EDT Layo Sherwin DO LAB BLOOD ORDERABLES Final Resul t Performing Organization Address [facility] Co de Phone Number [facility] * MLR HEMOGLOBIN A1C (08/29/2024 4:35 PM EDT) GLYCOHEMOGLOBIN A1C 4.8 4.5 - 6.2 % [facility] Comment: ADA RECOMMENDED LIMIT 4.0 - 6.0 ADA THERAPEUTIC TARGET < 7.0 ACTION SUGGESTED > 7.0 ESTIMATED AVERAGE GLUCOSE 91 mg/dL TB 08/29/2024 4:35 PM EDT 08/29/2024 4:38 PM EDT Narrative [facility] - 08/29/2024 4:54 PM EDT Layo Sherwin DO CLINISYNC Final Result Performing Organization Address City/[facility]/ZIP Co de Phone Number [facility] * ALL TYPE AND SCREEN (08/29/2024 4:35 PM EDT) BLOOD TYPE O Positive [facility] ANTIBODY SCREEN NEGATIVE TB 08/29/2024 4:35 PM EDT 08/29/2024 4:38 PM EDT Narrative CL[facility] - 08/29/2024 5:33 PM EDT [facility] , Layo Sherwin DO CLINISYNC Final Result Performing Organization Address [facility] Co de Phone Number [facility] TB * ALL RUBELLA IGG AB (08/29/2024 4:35 PM EDT) [facility] RUBELLA ANTIBODIES, IGG 1.40 Immune >0.99 index [facility] Comment: Non-immune <0.90 Equivocal 0.90 - 0.99 Immune >0.99 Performed at: - [address] [id number] Building Cleaning Supervisor: Jason Spangler PhD, Phone: [phone] 08/29/2024 4:35 PM EDT 08/29/2024 4:38 PM EDT Narrative [facility] - 08/31/2024 8:08 AM EDT Layo Navarroo DO CLINISYNC Final Result [facility] * (ABNORMAL) ALL CBC WITH AUTO DIFF (08/29/2024 4:35 PM EDT) [facility] WBC 8.4 4.0 - 11.0 10 3/uL [facility] TB RBC 4.50 4.20 - 5.40 10 6/uL [facility] TB HGB 13.6 12.0 - 16.0 g/dL TB TB HCT 39.3 36.0 - 48.0 % TB TB MCV 87.3 81.0 - 99.0 fL TB TB MCH 30.2 26.7 - 34.0 pg TBH TB MCHC 34.6 29.9 - 35.2 g/dL TB TB RDW 12.0 11.0 - 15.0 % [facility] TB PLT 151 150 - 450 10 3/uL TB TB MPV 10.9 9.5 - 13.5 fL TBH [...] Narrative CLIN[facility] - 08/29/2024 4:42 PM EDT Layo Navarroo DO CLINISYNC Final Result [facility] * TB DRUG SCREEN RAPID (URINE) (08/29/2024 4:25 PM EDT) Pathologist [facility] CANNABINOID SCREEN URINE NEGATIVE NEGATIVE [facility] PHENCYCLIDINE [...] EDT Layo Sherwin DO CLINISYNC Final Result [facility] * (ABNORMAL) POCT , urine manually resulted (07/29/2024 9:57 AM EDT) Preg Test, Ur Positive Negative Urine 07/29/2024 9:57 AM EDT Layo Sherwin DO POINT OF CARE TEST ENTER/EDIT OR DERABLES Final Result from Last 3 Months Insurance [employer]
--- OUTSIDE RECORDS SUMMARY | 2024-10-11 15:12 | XMS_ITS | Encounter Summary ---
Author Organization [facility] Address [address] [place] [address] Phone Care Team Providers Care Mail Handler Name Role Phone Allyssa Robles RN Unavailable Unavailable Encounter Details Date Type Department Care Team (Latest Contact Info) Description 10/07/2024 Travel 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 Tobacco Use Types Packs/Day Years [...] AM EDT documented as of this encounter Plan of Treatment Not on file documented as of this encounter Visit Diagnoses Not on filedocumented in this encounter Care Teams Mail Handler Relationship Specialty Start Date End Date Allyssa Robles, MISHEL Registered Nurse Reproductive Endocrinology and Infertility 12/25/23 documented as of this encounter
--- OUTSIDE RECORDS SUMMARY | 2024-10-11 15:12 | XMS_ITS | Encounter Summary ---
Author Organization [facility] Address [address] [place] [address] Care Team Providers Care Clinical Supervisor Name Role Phone Unavailable Primary Care Provider Unavailabl e Encounter Details Date Type Department Care Team (Late st Contact Info) Description 10/07/2024 Clinisync Result Encounter [facility] External Department Unsolicited Layo Courtney [facility] [place] [address] 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 Tobacco Use Types Packs/Day Years [...] PM EDT Routine [facility] B[facility] OB [address] [place] [address] Layo Courtney DO [facility] [place] [address] documented as of this encounter Procedures Procedure Name Priority Date/Time Associated Diagnosis Comments US OB DETAIL ANATOMY 10/07/2024 7:31 AM EDT documented in this encounter Results * US OB detail anatomy (10/07/2024 7:31 AM EDT) Anatomical Region Laterality Modality Body Ultrasound 10/07/2024 7:31 AM EDT Narrative 10/07/2024 10:24 AM EDT Source Facility: [facility] Interpreted by: Ad Ovalle Indication ======== Screening [...] EFW (oz) 12 oz EFW by: Hadlock ([id number]) Extended Network Diagnostic Support Specialist 6.0 mm CM 4.4 mm 36% Nicolaides [...] Normal LVOT view: Normal 3-vessel view: Normal 4-muyjkw-kyherfq view: Normal Heart / Thorax Situs: situs [...] Note Radiology, Radiologist, - 10/07/2024 Source Facility: [facility] Interpreted by: Ad Ovalle Indication ======== Screening [...] EFW (oz) 12 oz EFW by: Hadlock ([id number]) Extended Network Diagnostic Support Specialist 6.0 mm CM 4.4 mm 36% Nicolaides [...] Normal LVOT view: Normal 3-vessel view: Normal 2-ksmeuo-hssqjsh view: Normal Heart / Thorax Situs: situs [...] fluid: No free fluid visualized us Layo MACDONALDG OB US PROCEDURES Final Resul t documented in this encounter Visit Diagnoses Not on filedocumented in this encounter
--- OUTSIDE RECORDS SUMMARY | 2024-10-11 15:12 | XMS_ITS | Encounter Summary ---
Author Organization [facility] Address [address] [place] [address] Care Team Providers Care Installation Manager Name Role Phone Unavailable Primary Care Provider Unavailabl e Encounter Details Date Type Department Care Team (Late st Contact Info) Description 01/21/2024 Orders Only [facility] [address] [place] [phone] Marilia Elder [address] [place] [address] 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 Tobacco Use Types Packs/Day Years [...] Description 11/08/2024 2:40 PM EDT Routine [facility] [address] [place] [address] Layo Courtney DO [address] [place] [address] Dr Rose [place], [place] [phone] documented as of this encounter Procedures Procedure [...]
--- OUTSIDE RECORDS SUMMARY | 2024-10-11 15:12 | XMS_ITS ---
Author Organization [facility] Address [address] [place] [address] Phone Care Team Providers Care Jet Ski Mechanic Name Role Phone Allyssa Robles RN Unavailable Unavailable Fertility Core Status:Enrolled (Active) Start date:02/24/2024 Enrollment date:02/29/2024 Enrollment reason:Identified from a specialty prescription Current support & services provided:Refill Management, Benefits and PA Management Linked medications:lidocaine/prilocaine (Active), progesterone (Active), transparent dressing () Continued Care and Services Coordination
--- OUTSIDE RECORDS SUMMARY | 2024-10-11 15:12 | XMS_ITS | Encounter Summary ---
Author Organization [facility] Address [address] [place] [address] Phone Care Team Providers Care Casing Grader Name Role Phone Allyssa Robles RN Unavailable Unavailable Encounter Details Date Type Department Care Team (Late st Contact Info) Description 06/23/2024 Lab Requisition [facility] [address] [place] [phone] America Chavez, RESEARCH BIOSTATISTICIAN-SPORTS SPECIALIST [address] [place] [address] Female infertility, unspecified 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 Tobacco Use [...] Procedure Name Priority Date/Time Associated Diagnosis Comments PHLEB CHARGE - VENIPUNCTURE (LAB USE ONLY) STAT 06/23/2024 7:53 AM EST Female infertility, unspecified SST TOP Routine 06/23/2024 7:53 AM EST Female infertility, unspecified PROGESTERONE STAT 06/23/2024 7:53 AM EST Female infertility, unspecified ESTRADIOL STAT 06/23/2024 7:53 AM EST Female infertility, unspecified documented in this encounter Results * SST TOP (06/23/2024 7:53 AM EST) Extra Tube Hold for add-ons. 06/23/2024 10:02 AM EST [facility] Comment:Auto resulted. Blood Venous blood specimen / Unknown 06/23/2024 7:53 AM EST 06/23/2024 8:35 AM EST America Chavez RESE[facility] BIOSTATISTICIANMETROPOLIT[facility] LAB BLOOD ORDERABLES Final Result Performing Organization Address City/Special Care Hospital/ZIP Co de Phone Number [facility] [address] [place], [place] [phone] * Phleb Charge - Venipuncture (Lab Use Only) (06/23/2024 7:53 AM EST) Blood Venous blood specimen / Unknown 06/23/2024 7:53 AM EST 06/23/2024 8:35 AM EST America Chavez [facility] LAB BLOOD ORDERABLES Final Result Performing Organization Address City/Special Care Hospital/ZIP Co de Phone Number [facility] [address] [place] [address] * Estradiol (06/23/2024 7:53 AM EST) Estradiol 378 pg/mL LAB IMMUNOASSAY METHOD 06/23/2024 9:14 AM EST [facility] Blood Venous blood specimen / Unknown 06/23/2024 7:53 AM EST 06/23/2024 8:35 AM EST Narrative [facility] - 06/23/2024 9:14 AM EST REF VALUES FOLLICULAR PHASE 20-144 MID CYCLE 64-357 LUTEAL PHASE 56-214 POSTMENOPAUSE < 32 PREPUBERTY < 20 FEMALE 10-18Y 8-110 MALE 10-18Y < 20 ADULT MALE < 40 Estradiol measurement is performed using the Faith [employer] Access Estradiol Immunoassay. Estradiol testing is performed using a different test methodology at [facility] than other [facility]. Direct result comparison should only be made within the same method. Americaroxy Chavez RESEARCH BIOSTATISTICIANAbeona TherapeuticsSPORTS SPECIALIST LAB BLOOD ORDERABLES Final Result Performing Organization Address City/[facility] Care Hospital/ZIP Co de Phone Number [facility] [address] [place] [address] * Progesterone (06/23/2024 7:53 AM EST) [facility] Progesterone 42.6 ng/mL LAB IMMUNOASSAY METHOD 06/23/2024 10:10 AM EST [facility] Blood Venous blood specimen / Unknown 06/23/2024 7:53 AM EST 06/23/2024 8:35 AM EST Narrative [facility] - 06/23/2024 10:10 AM EST REF VALUES Male <0.2-0.8 Follicular Phase <0.2-1.5 Luteal Phase 7.4-15.4 Post Menopausal <0.2-0.2 1ST Trimester 12.0-84.0 2ND Trimester 10.2-58.8 3RD Trimester 46.5-160 Progesterone is performed using the Faith [employer] Access Immunoassay. Progesterone testing is performed using a different test methodology at [facility] than other [facility]. Direct result comparison should only be made within the same method. Americaroxy Chavez RESEARCH BIOSTATISTICIANAbeona TherapeuticsSPORTS SPECIALIST LAB BLOOD ORDERABLES Final Result Performing Organization Address City/Special Care Hospital/ZIP Co de Phone Number [facility] [id number] [place] [phone] documented in this encounter Visit Diagnoses Diagnosis Female infertility, unspecified documented in this encounter Care Teams Casing Grader Relationship Specialty Start Date End Date Allyssa Robles, RN Registered Nurse Reproductive Endocrinology and Infertility 12/25/23 documented as of this encounter
--- OUTSIDE RECORDS SUMMARY | 2024-10-11 15:12 | XMS_ITS | Encounter Summary ---
Author Organization [facility] Address [address] [place] [address] Care Team Providers Care Veneer Measurer Name Role Phone Unavailable Primary Care Provider Unavailabl e Encounter Details Date Type Department Care Team (Late st Contact Info) Description 10/11/2024 Bamboo flowsheet [facility] [address] [place] [address] Layo Courtney DO [facility] [place] [address] 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 Tobacco Use Types Packs/Day [...] PM EDT Routine [facility] [address] [place] [address] Layo Courtney DO [address] [place] [address] documented as of this encounter Visit Diagnoses Not on filedocumented in this encounter
--- OUTSIDE RECORDS SUMMARY | 2024-10-11 15:12 | XMS_ITS | Encounter Summary ---
Author Organization [facility] Address [address] [place] [address] Care Team Providers Care Blintze Roller Name Role Phone Unavailable Primary Care Provider Unavailabl e Encounter Details Date Type Department Care Team (Late st Contact Info) Description 08/02/[address] [facility] [address] [place] [address] Layo Courtney, DO [facility] [place] [address] 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 Tobacco Use Types Packs/Day [...] 2:40 PM EDT Routine [facility] [address] [place] [address] Layo Courtney, DO [address] [place] [address] documented as of this encounter Visit Diagnoses Not on filedocumented in this encounter
--- OUTSIDE RECORDS SUMMARY | 2024-10-11 15:12 | XMS_ITS | Encounter Summary ---
Author Organization [facility] Address [address] [place] [address] Phone Care Team Providers Care Cushion Former Name Role Phone Allyssa Robles RN Unavailable Unavailable Encounter Details Date Type Department Care Team (Late st Contact Info) Description 06/23/2024 Lab Requisition [facility] [address] [place] [address] Juan Chavarria MD [address] [facility] Alexia [place], [address] [phone] Encounter for test, result unknown 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 [...] LAB IMMUNOASSAY METHOD 06/23/2024 11:04 AM EST [facility] Comment:Low-level positive H CG results can [...] AM EST 06/23/2024 10:43 AM EST Narrative [facility] - 06/23/2024 11:04 AM EST Total HCG measurement is performed using the Faith Crist[employer] Access Immunoassay which detects intact HCG and free beta HCG subunit. This test is not indicated for use as a tumor marker. HCG testing is performed using a different test methodology at [facility] than other [facility]. Direct result comparison should only be made within the same method. us Juan Chavarria MD LAB BLOOD ORDERABLES Final R esult [facility] [address] [place] [phone] documented in this encounter Visit Diagnoses Diagnosis Encounter for test, result unknown documented in this encounter Care Teams Cushion Former Relationship Specialty Start Date End Date Allyssa Robles, RN Registered Nurse Reproductive Endocrinology and Infertility 12/25/23 documented as of this encounter
--- OUTSIDE RECORDS SUMMARY | 2024-10-11 15:12 | XMS_ITS | Encounter Summary ---
Author Organization [facility] Address [address] [place] [address] Care Team Providers Care Brands Editor Name Role Phone Unavailable Primary Care Provider Unavailabl e Encounter Details Date Type Department Care Team (Late st Contact Info) Description 04/10/2023 Clinisync Result Encounter [facility] External Department Unsolicited Rula Courtney, [facility] [place] [address] 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 Tobacco Use Types Packs/Day Years [...] Description 11/08/2024 2:40 PM EDT Routine [facility] [address] [facility] [place] [address] Rula Courtney DO [facility] [place] [address] documented as of this encounter Procedures Procedure Name Priority Date/Time Associated Diagnosis Comments FL HYSTEROSALPINGOGRAPHY 023 3:10 PM EST documented in this encounter Results * FL HYSTEROSALPINGOGRAPHY (04/10/2023 3:10 PM EST) Anatomical Region Laterality Modality Other 04/10/2023 3:10 PM EST Narrative 04/10/2023 3:13 [place] [address] Fluoroscopy Report Signed Patient: OLENA PEREYRA MR#: [id number] : 1995 Acct:[id number] Age/Sex: 27 / F ADM Date: 04/10/23 Loc: LAB Attending Dr: Rula Courtney D.O. Ordering Physician: Rula Courtney D.O. Date of Service: 04/10/23 Procedure(s): FL hysterosalpingography Accession Number(s): [id number] cc: Rula Courtney D.O.; Physician,Non-Staff [place] [address] Patient Name: OLENA PEREYRA MRN: [id number] date: 1995 Sex: F Assigned Patient Location: LAB Current Patient Location: Accession/Order Number: [id number] Exam Date: 04/10/2023 14:30 Report Date: 04/10/2023 [...] Signed By: 04/10/23 151 DD/ 09 TD/TT: Immigration Officer: Procedure Note Radiology, Radiologist, MD - 04/10/2023 [place] [address] Fluoroscopy Report Signed Patient: OLENA PEREYRA RMR#: [id number] : 1995Acct:[id number] Age/Sex: 27 / FADM Date: 04/10/23 Loc: LAB Attending Dr: Rula Courtney D.O. Ordering Physician: Rula Courtney D.O. Date of Service: 04/10/23 Procedure(s): FL hysterosalpingography Accession Number(s): [id number] cc: Rula Courtney D.O.; Physician,Non-Staff [place] [id number] Patient Name: OLENA PEREYRA MRN: [id number] date: 1995 Sex: F Assigned Patient Location: LAB Current Patient Location: Accession/Order Number: [id number] Exam Date: 04/10/2023 14:30 Report Date: 04/10/2023 [...] M.D. Signed By:04/10/23 151 DD/ 09 TD/TT: Immigration Officer: Rula Courtney DO [facility] Final Result documented in this encounter Visit Diagnoses Not on filedocumented in this encounter
--- OUTSIDE RECORDS SUMMARY | 2024-10-11 15:12 | XMS_ITS | Encounter Summary ---
Author Organization [facility] Address [address] [place] [address] Care Team Providers Care Sort Operations Supervisor Name Role Phone Unavailable Primary Care Provider Unavailabl e Encounter Details Date Type Department Care Team (Late st Contact Info) Description 01/22/2024 Abstract [facility] [address] [facility] [place] [address] Layo Courtney, [facility] [place] Celina Hernandez, [facility] 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 Tobacco Use Types Packs/Day Years [...] Description 11/08/2024 2:40 PM EDT Routine [facility] [address] [facility] [place] [address] Layo Courtney, [facility] Abhin[place], [facility]11 documented as of this encounter Visit Diagnoses Not on filedocumented in this encounter
--- OUTSIDE RECORDS SUMMARY | 2024-10-11 15:12 | XMS_ITS | Encounter Summary ---
Author Organization [facility] Address [address] [place] [address] Phone Care Team Providers Care Computer Support Analyst Name Role Phone Allyssa Robles RN Unavailable Unavailable Encounter Details Date Type Department Care Team (Late st Contact Info) Description 06/30/2024 Lab Requisition [facility] [address] [place] [address] Leigh Ann Tuttle MD [address] [facility] Alexia [place], [address] [phone] Female infertility, unspecified 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 Tobacco Use [...] LAB IMMUNOASSAY METHOD 06/30/2024 10:41 AM EST [facility] Comment:Low-level positive H CG results can [...] AM EST 06/30/2024 10:01 AM EST Narrative [facility] - 06/30/2024 10:41 AM EST Total HCG measurement is performed using the [employer] Access Immunoassay which detects intact HCG and free beta HCG subunit. This test is not indicated for use as a tumor marker. HCG testing is performed using a different test methodology at [facility] than other [facility]. Direct result comparison should only be made within the same method. us Leigh Ann Tuttle MD LAB BLOOD ORDERABLES Final Re sult Performing Organization Address City/State/[facility] Co de Phone Number [facility] [address] [place] [phone] documented in this encounter Visit Diagnoses Diagnosis Female infertility, unspecified documented in this encounter Care Teams Computer Support Analyst Relationship Specialty Start Date End Date Allyssa Robles, RN Registered Nurse Reproductive Endocrinology and Infertility 12/25/23 documented as of this encounter
--- OUTSIDE RECORDS SUMMARY | 2024-10-11 15:12 | XMS_ITS | Encounter Summary ---
Author Organization [facility] Address [address] [place] [address] Phone Care Team Providers Care Group Contract Analyst Name Role Phone Allyssa Robles RN Unavailable Unavailable Encounter Details Date Type Department Care Team (Late st Contact Info) Description 06/06/2024 Lab Requisition [facility] [address] [place] [phone] America Chavez, SUB ASSEMBLY TEAM WORKER-SERVICE COUNTER CASHIER [address] [place] [address] Female infertility, unspecified 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 Tobacco Use [...] LAB IMMUNOASSAY METHOD 06/06/2024 11:56 AM EST [facility] Blood Venous blood specimen / Unknown 06/06/2024 7:00 AM EST 06/06/2024 10:58 AM EST Narrative [facility] - 06/06/2024 11:56 AM EST REF VALUES FOLLICULAR PHASE 20-144 MID CYCLE 64-357 LUTEAL PHASE 56-214 POSTMENOPAUSE < 32 PREPUBERTY < 20 FEMALE 10-18Y 8-110 MALE 10-18Y < 20 ADULT MALE < 40 America Chavez [facility]NLA[facility] LAB BLOOD ORDERABLES Final Result Performing Organization Address City/[facility] de Phone Number [facility] [address] [place] [address] * Progesterone (06/06/2024 7:00 AM EST) Progesterone 0.8 ng/mL LAB IMMUNOASSAY METHOD 06/10/2024 8:43 PM EST [facility] Comment: Blood Venous blood specimen / Unknown 06/06/2024 7:00 AM EST 06/06/2024 10:58 AM EST Narrative [facility] - 06/10/2024 8:43 PM EST REF VALUES Male <0.2-0.8 Follicular Phase <0.2-1.5 Luteal Phase 7.4-15.4 Post Menopausal <0.2-0.2 1ST Trimester 12.0-84.0 2ND Trimester 10.2-58.8 3RD Trimester 46.5-160 Progesterone is performed using the Faith [employer] Access Immunoassay. Progesterone testing is performed using a different test methodology at [facility] than other [facility]. Direct result comparison should only be made within the same method. America Chavez [facility] BLOOD ORDERABLES Edite d Result - Final [facility] [address] [place] [address] documented in this encounter Visit Diagnoses Diagnosis Female infertility, unspecified documented in this encounter Care Teams Group Contract Analyst Relationship Specialty Start Date End Date Allyssa Robles, MISHEL Registered Nurse Reproductive Endocrinology and Infertility 12/25/23 documented as of this encounter
--- OUTSIDE RECORDS SUMMARY | 2024-10-11 15:12 | XMS_ITS | Encounter Summary ---
Author Organization [facility] Address [address] [place] [address] Phone Care Team Providers Care Glass Artist Name Role Phone Allyssa Robles RN Unavailable Unavailable Encounter Details Date Type Department Care Team (Late st Contact Info) Description 06/13/2024 Lab Requisition [facility] [address] [place] [address] Juan Chavarria MD [address] [facility] Alexia [place], [facility] [address] [place], [place] [phone] Female infertility, unspecified 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 Tobacco Use [...] LAB IMMUNOASSAY METHOD 06/13/2024 2:07 PM EST [facility] Blood Venous blood specimen / Unknown 06/13/2024 11:38 AM EST 06/13/2024 12:46 PM EST Narrative [facility] - 06/13/2024 2:07 PM EST REF VALUES Male <0.2-0.8 Follicular Phase <0.2-1.5 Luteal Phase 7.4-15.4 Post Menopausal <0.2-0.2 1ST Trimester 12.0-84.0 2ND Trimester 10.2-58.8 3RD Trimester 46.5-160 Progesterone is performed using the Faith [place] Access Immunoassay. Progesterone testing is performed using a different test methodology at [facility] than other [facility]. Direct result comparison should only be made within the same method. us Juan Chavarria MD LAB BLOOD ORDERABLES Final R esult [facility] [address] [place] [address] documented in this encounter Visit Diagnoses Diagnosis Female infertility, unspecified documented in this encounter Care Teams Glass Artist Relationship Specialty Start Date End Date Allyssa Robles, RN Registered Nurse Reproductive Endocrinology and Infertility 12/25/23 documented as of this encounter
[2024-10-11 15:32] LABS: Basophils Percent Auto 0.2 % (0.2-2.0); Eosinophils Absolute Auto 0.3 10^3/uL (0.0-0.7); Eosinophils Percent Auto 3.2 % (0.9-7.0); Hematocrit 37.9 % (36.0-48.0); Hemoglobin 13.2 g/dL (12.0-16.0); Immature Granulocytes Abs Auto 0.14 10^3/uL (0.00-0.03); Immature Granulocytes Pct Auto 1.5 % (0.0-0.5); Lymphocytes Percent Auto 20.8 % (20.5-60.0); Mean Corpuscular HGB Conc 34.8 g/dL (29.9-35.2); Mean Corpuscular Hemoglobin 30.9 pg (26.7-34.0); Mean Corpuscular Volume 88.8 fL (81.0-99.0); Mean Platelet Volume 11.1 fL (9.5-13.5); Monocytes Absolute Auto 0.7 10^3/uL (0.3-0.8); Monocytes Percent Auto 7.2 % (1.7-12.0); Neutrophils Absolute Auto 6.3 10^3/uL (1.4-6.5); Neutrophils Percent Auto 67.1 % (43.0-75.0); Platelet Count 153 10^3/uL (150-450); Red Blood Count 4.27 10^6/uL (4.20-5.40); Red Cell Distribution Width 12.5 % (11.0-15.0); White Blood Count 9.4 10^3/uL (4.0-11.0)
[2024-10-11 16:25] LABS: Alanine Aminotransferase 34 U/L (14-59); Albumin Globulin Ratio 0.7; Albumin Level 2.6 g/dL (3.4-5.0); Alkaline Phosphatase 82 U/L (46-116); Aspartate Amino Transferase 19 U/L (15-37); Bilirubin Direct 0.1 mg/dL (0.0-0.2); Bilirubin Total 0.2 mg/dL (0.2-1.0); Globulin 3.6 g/dL; Thyroid Stimulating Hormone 1.126 uIU/mL (0.358-3.740); Total Protein 6.2 g/dL (6.4-8.2)
[2024-10-12 05:09] LABS: HCV Antibody Non Reactive (Non Reactive)
[2024-10-12 20:13] LABS: Bile Acids 2.5 umol/L (0.0-10.0)
== END 2024-10-11 15:09 | disposition home or self-care (01) ==
LOC: LAB 15:09
PROVIDERS: Visit Provider Obstetrics & Gynecology
DX: O26.892 Other specified pregnancy related conditions, second trimester (principal); Z3A.00 Weeks of gestation of pregnancy not specified; R21 Rash and other nonspecific skin eruption
CPT/HCPCS: 36415; 80076; 82239; 84443; 85025; 86803

== ENCOUNTER 2024-10-25 07:01 | Outpatient (RCR) | payer OTHER, SELFPAY | END 2024-12-06 09:07 | disposition home or self-care (01) | LOC: PT 07:01 | PROVIDERS: Visit Provider Obstetrics & Gynecology | DX: M54.50 Low back pain, unspecified (principal) | CPT/HCPCS: 97110; 97140; 97161 ==

== ENCOUNTER 2024-11-26 08:56 | Outpatient (OUT) | payer OTHER, SELFPAY ==
--- OUTSIDE RECORDS SUMMARY | 2024-11-26 08:58 | XMS_ITS | Encounter Summary ---
Author Organization [facility] Address [address] [place] [address] Phone Care Team Providers Care Vendor Relationship Manager Name Role Phone Allyssa Robles RN Unavailable Unavailable Encounter Details Date Type Department Care Team (Late st Contact Info) Description 06/07/2024 Lab Requisition [facility] [address] [place] [address] America Chavez, CABLE FORMER-PLASTIC TILE LAYER [address] [place] [address] Female infertility, unspecified 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 Tobacco Use [...] LAB IMMUNOASSAY METHOD 06/10/2024 8:33 PM EST [facility] Comment: Blood Venous blood specimen / Unknown 06/07/2024 8:45 AM EST 06/07/2024 10:22 AM EST Narrative [facility] - 06/10/2024 8:33 PM EST REF VALUES Male <0.2-0.8 Follicular Phase <0.2-1.5 Luteal Phase 7.4-15.4 Post Menopausal <0.2-0.2 1ST Trimester 12.0-84.0 2ND Trimester 10.2-58.8 3RD Trimester 46.5-160 Progesterone is performed using the Faith [employer] Access Immunoassay. Progesterone testing is performed using a different test methodology at [facility] than other [facility]. Direct result comparison should only be made within the same method. America Chavez APRNeYantra IndustriesPLASTIC TILE LAYER LAB BLOOD ORDERABLES Edite d Result - Final Performing Organization Address City/State/[facility] Co de Phone Number [facility] [address] [place] [phone] * Estradiol (06/07/2024 8:45 AM EST) Estradiol 2,870 pg/mL LAB IMMUNOASSAY METHOD 06/07/2024 10:43 AM EST [facility] Blood Venous blood specimen / Unknown 06/07/2024 8:45 AM EST 06/07/2024 10:22 AM EST Narrative [facility] - 06/07/2024 10:43 AM EST REF VALUES FOLLICULAR PHASE 20-144 MID CYCLE 64-357 LUTEAL PHASE 56-214 POSTMENOPAUSE < 32 PREPUBERTY < 20 FEMALE 10-18Y 8-110 MALE 10-18Y < 20 ADULT MALE < 40 America Chavez CABLE FORMER-PLASTIC TILE LAYER LAB BLOOD ORDERABLES Final Result [facility] [address] [place] [address] documented in this encounter Visit Diagnoses Diagnosis Female infertility, unspecified documented in this encounter Care Teams Vendor Relationship Manager Relationship Specialty Start Date End Date Allyssa Robles, MISHEL Registered Nurse Reproductive Endocrinology and Infertility 12/25/23 documented as of this encounter
--- OUTSIDE RECORDS SUMMARY | 2024-11-26 08:58 | XMS_ITS | Clinical Summary ---
Author Organization [facility] Address [address] [place] [address] Care Team Providers Care Swimming Pool Attendant Name Role Phone Unavailable Primary Care Provider [...] the morning and 500 mg before bedtime. 09/21/2024 Active famotidine (Pepcid) 20 MG tabletIndicatio ns:Gastroesopha geal Reflux Disease,Heartbu rn Take 1 tablet (20 mg) by mouth Daily 30 tablet 11 10/04/2024 Active cetirizine (ZyrTEC ALLERGY) 10 MG tabletIndicatio ns:Pruritus of in second trimester ([facility] Take 1 tablet (10 mg) by mouth Daily 30 tablet 11 10/04/2024 Active methylPREDNISol one (Medrol Dospak) 4 MG tabletsIndicati ons:Pruritus of in second trimester ([facility]) Day 1: 6 tablets Day 2: 5 tablets Day 3: 4 tablets Day 4: 3 tablets Day 5: 2 tablets Day 6: 1 tablet 21 tablet 10/04/2024 Active hydrOXYzine pamoate (Vistaril) 25 MG capsuleIndicati ons:Pruritus Take 1 capsule (25 mg) by mouth every 6 (six) hours if needed for itching for up to 10 days 30 capsule 10/11/2024 Active cyclobenzaprine (Flexeril) 10 MG tabletIndicatio ns:Acute bilateral low back pain without sciatica Take 0.5 tablets (5 mg) by mouth 3 (three) times a day as needed for muscle spasms for up to 10 days 30 tablet 2 10/17/2024 Active Active Problems Estimated Date of Delivery Comme nts Yes 03/01/2025 Based on Ultraso und No known active problems Encounters Date Type Department Care Team Description 11/18/2024 [place] [address] Layo Courtney DO 11/08/2024 2:40 [place] [address] Layo Courtney, Second trimester ([facility]); 26 weeks gestation of ([facility]); Diabetes mellitus screening 11/08/2024 [place] [address] Godfrey [place], [place] 10/17/2024 1:00 PM [place] [address] Layo Courtney, Acute bilateral low back pain without sciatica (Primary Dx); Second trimester ([facility]); 20 weeks gestation of ([facility]) 10/17/2024 [place] [address] Layo Courtney, 10/11/2024 2:40 [place] [address] Layo Courtney, Second trimester ([facility]); 19 weeks gestation of ([facility]); Pruritus 10/11/2024 Clinisync Result Encounter NOM[facility] External Department Unsolicited Layo Courtney DO 10/11/2024 Bamboo flowsheet [facility] [address] [place] [address] Layo Courtney, DO 10/07/2024 Clinisync Result Encounter NOMS External Department Unsolicited Layo Courtney, DO 10/04/2024 Telephone [facility] [place] [facility] [address] [place] [address] Brandy Sheehan PA 09/23/2024 Telephone [facility] [address] [place] [address] Maria Isabel Harry LPN 09/22/2024 9:40 AM EDT Routine [facility] [address] [place] [address] Brandy Sheehan PA 17 weeks gestation of ([facility]); Second trimester ([facility]); Abnormal urine 09/22/2024 Bamboo flowsheet [facility] [address] [place] [address] Brandy Sheehan PA 09/21/2024 Abstract [facility] [place] [facility] [address] [place] [address] Layo Courtney, DO 09/21/2024 Abstract [facility] [address] [place] [address] Layo Courtney, DO 09/13/2024 Telephone [facility] [address] [place] [address] Niki Barbosa LPN 09/06/2024 2:50 PM EDT Routine [facility] [place] [facility] [address] [place] [address] Brandy Sheehan PA STD exposure; Second trimester ([facility]); 14 weeks gestation of ([facility]); Screening, , for anatomic survey ([facility]) 09/06/2024 External Result Encounter NOMS External Department Unsolicited Brandy Sheehan PA 09/06/2024 Bamboo flowsheet [facility] ZACARI[facility] [address] [place] [phone] Brandy Sheehan PA 08/29/2024 Clinisync Result Encounter NOMS External Department Unsolicited Layo Courtney DO from Last 3 Months Family History Medical [...] Sign Reading Time Taken Comments Blood Pressure 122/80 11/08/2024 2:59 PM EDT Pulse - - Temperature - - Respiratory Rate - - Oxygen Saturation - - Inhaled Oxygen Concentration - - Weight 91.1 kg (200 lb 14.4 oz) 11/08/2024 2:59 PM EDT Height 160 cm (5' 3 ) 09/17/2022 12:00 PM EDT Body Mass Index 35.59 09/17/2022 12:00 PM EDT Plan of Treatment Upcoming Encounters Date Type Department Care Team (Late st Contact Info) Description 12/06/2024 8:30 AM EDT Routine [facility] ZACARI[facility] [address] [place] [phone] Layo Courtney DO [address] [place] [address] Procedures Procedure Name Priority Date/Time Associated Diagnosis Comments POCT URINALYSIS DIPSTICK Routine 11/09/2024 11:39 AM EDT Second trimester ([facility]) 26 weeks gestation of ([facility]) POCT URINALYSIS DIPSTICK Routine 10/17/2024 1:15 PM EDT Second trimester ([facility]) [facility] BILE ACIDS FRACT BLD Routine 10/11/2024 3:19 PM EDT ALL HEPATITIS C AB Routine 10/11/2024 3: 19 PM EDT ALL THYROID STIM HORMONE Routine 10/11/2024 3:19 PM EDT [facility] LIVER PANEL Routine 10/11/2024 3:19 PM EDT ALL CBC WITH AUTO DIFF Routine 10/11/2024 3:19 PM EDT US OB DETAIL ANATOMY 10/07/2024 7:31 AM EDT URINARY TRACT INFECTION (HTRX) Routine 09/22/2024 12:54 PM EDT POCT URINALYSIS DIPSTICK Routine 09/22/2024 9:54 AM EDT 17 weeks gestation of ([facility]) Second trimester ([facility]) RECURRENT VAGINITIS (HTRX) Routine 09/06/2024 3:59 PM EDT POCT URINALYSIS DIPSTICK Routine 09/06/2024 3:46 PM EDT Screening, , for anatomic survey ([facility]) HBSAG SCREEN Routine 08/29/2024 4:35 PM EDT [...] RAPID (URINE) Routine 08/29/2024 4:25 PM EDT from Last 3 Months Results * POCT urinalysis dipstick manually resulted (11/09/2024 11:39 AM EDT) Only the most recent of4 resultswithin the time period is included. Color, UA Yellow Clarity, UA Clear Glucose, UA Negative Negative - 2000(110) ++++ mg/dL Bilirubin, UA Negative Negative - 4(70) +++ mg/dL Ketones, UA Negative Negative - 160(16) ++++ mg/dL Spec Grav, UA 1.025 1 - 1.03 Blood, UA Negative Negative - 50 Jose/mcL pH, UA 5.5 5 - 9 Protein, UA Negative Negative - 2000(20) ++++ mg/dL Urobilinogen, UA 1.0 0.2 - 12 mg/dL Leukocytes, UA Negative Negative - 500+++ Onel/mcL Nitrite, UA Negative Negative - Positive Urine 11/09/2024 11:3 9 AM EDT us Layo Sherwin DO POINT OF CARE TEST ENTER/EDIT OR DERABLES Final Result * (ABNORMAL) [facility] LIVER PANEL (10/11/2024 3:19 PM EDT) BILIRUBIN TOTAL 0.2 0.2 - 1.0 mg/dL [facility] BILIRUBIN DIRECT 0.1 0.0 - 0.2 mg/dL [facility] ASPARTATE AMINO TRANSFERASE 19 15 - 37 U/L [facility] ALANINE AMINOTRANSFERASE 34 14 - 59 U/L [facility] ALKALINE PHOSPHATASE 82 46 - 116 U/L [facility] TOTAL PROTEIN 6.2(L) 6.4 - 8.2 g/dL [facility] ALBUMIN LEVEL 2.6(L) 3.4 - 5.0 g/dL [facility] GLOBULIN 3.6 g/dL [facility] ALBUMIN GLOBULIN RATIO 0.7 [facility] 10/11/2024 3:19 PM EDT 10/11/2024 3:22 PM EDT Narrative CLINISYNC - 10/11/2024 4:25 PM EDT us Layo Sherwin DO CLINISYNC Final Result Performing Organization Address City/[facility]/ZIP Co de Phone Number [facility] * [facility] BILE ACIDS FRACT BLD (10/11/2024 3:19 PM EDT) BILE ACIDS 2.5 0.0 - 10.0 umol/L [facility] Comment: Performed at: [address] [id number] Youth Coordinator: Padmini Barreto MD, Phone: [phone] 10/11/2024 3:19 PM EDT 10/11/2024 3:22 PM EDT Narrative CLINISYNC - 10/12/2024 8:13 PM EDT Layo Sherwin DO CLINISYNC Final Result Performing Organization Address [facility]/ZIP Co de Phone Number CLINISYPR TB * ALL THYROID STIM HORMONE (10/11/2024 3:19 PM EDT) THYROID STIMULATING HORMONE 1.126 0.358 - 3.740 uIU/mL [facility] 10/11/2024 3:19 PM EDT 10/11/2024 3:22 PM EDT Narrative CLINISYNC - 10/11/2024 4:25 PM EDT Layo Sherwin DO CLINISYNC Final Result Performing Organization Address [facility]/ZIP Co de Phone Number CLINISYNC TB * ALL HEPATITIS C AB (10/11/2024 3:19 PM EDT) Pathologist [facility] HCV ANTIBODY Non Reactive Non Reactive [facility] Comment: HCV antibody alone does not differentiate between previously resolved infection and active infection. Equivocal and Reactive HCV antibody results should be followed up with an HCV RNA test to support the diagnosis of active HCV infection. Performed at: - [address] [id number] Youth Coordinator: Jason Spangler PhD, Phone: [phone] 10/11/2024 3:19 PM EDT 10/11/2024 3:22 PM EDT Narrative CLINISYNC - 10/12/2024 5:09 AM EDT us Layo Courtney DO CLINISYNC Final Result [facility] * (ABNORMAL) ALL CBC WITH AUTO DIFF (10/11/2024 3:19 PM EDT) Only the most recent of2 resultswithin the time period is included. Pathologist [facility] TB WBC 9.4 4.0 - 11.0 10 3/uL [facility] TB RBC 4.27 4.20 - 5.40 10 6/uL [facility] TB HGB 13.2 12.0 - 16.0 g/dL TB TB HCT 37.9 36.0 - 48.0 % TB[facility] TB MCV 88.8 81.0 - 99.0 fL TBH TBH MCH 30.9 26.7 - 34.0 pg TB[facility] TB MCHC 34.8 29.9 - 35.2 g/dL TB TB RDW 12.5 11.0 - 15.0 % TBH TBH PLT 153 150 - 450 10 3/uL TB TB MPV 11.1 9.5 - 13.5 fL [facility]H NEUTROPHILS PERCENT AUTO 67.1 43.0 - 75.0 % [facility] LYMPHOCYTES PERCENT AUTO 20.8 20.5 - 60.0 % [facility] MONOCYTES PERCENT AUTO 7.2 1.7 - 12.0 % TB[facility] TBH EO % 3.2 0.9 - 7.0 % [facility] BASOPHILS PERCENT AUTO 0.2 0.2 - 2.0 % [facility] IMMATURE GRANULOCYTES PCT AUTO 1.5(H) 0.0 - 0.5 % TBH NEUTROPHILS ABSOLUTE AUTO 6.3 1.4 - 6.5 10 3/uL [facility] LYMPHOCYTES ABSOLUTE AUTO 2.0 1.2 - 3.8 10 3/uL [facility] MONOCYTES ABSOLUTE AUTO 0.7 0.3 - 0.8 10 3/uL TBH TBH EO # 0.3 0.0 - 0.7 10 3/uL TB[facility] BASOPHILS ABSOLUTE AUTO 0.0 0.0 - 0.1 10 3/uL [facility] IMMATURE GRANULOCYTES ABS AUTO 0.14(H) 0.00 - 0.03 10 3/uL [facility] 10/11/2024 3:19 PM EDT 10/11/2024 3:22 PM EDT Narrative CRISTALISYNC - 10/11/2024 3:44 PM EDT us Layo Courtney DO CLINISYNC Final Result [facility] * US OB detail anatomy (10/07/2024 7:31 AM EDT) Anatomical Region Laterality Modality Body Ultrasound 10/07/2024 7:31 AM EDT Narrative 10/07/2024 10:24 AM EDT Source Facility: [facility] Interpreted by: Ad Ovalle Indication ======== Screening [...] EFW (oz) 12 oz EFW by: Hadlock ([id number]) [employer] 6.0 mm CM 4.4 mm 36% Nicolaides [...] Normal LVOT view: Normal 3-vessel view: Normal 5-[id number]-rslmzpy view: Normal Heart / Thorax Situs: situs [...] Note Radiology, Radiologist, - 10/07/2024 Source Facility: [facility] Interpreted by: Ad Ovalle Indication ======== Screening [...] EFW (oz) 12 oz EFW by: Hadlock ([id number]) [employer] 6.0 mm CM 4.4 mm 36% Nicolaides [...] Normal LVOT view: Normal 3-vessel view: Normal 6-ibtswx-baovljk view: Normal Heart / Thorax Situs: situs [...] fluid: No free fluid visualized us Layo Sherwin DO IMG OB US PROCEDURES Final Resul t * (ABNORMAL) URINARY TRACT INFECTION (HTRX) (09/22/2024 12:54 PM EDT) Pathologist [facility] ACINETOBACTER BAUMANII 0.000 19.961 - 24.689 ppm 09/23/2024 6:23 AM EDT [facility] ACINETOBACTER BAUMANII Not Detected 19.961 - 24.689 ppm 09/23/2024 6:23 AM EDT [facility] CITROBACTER FREUNDII 0.000 23.000 - 31.881 ppm 09/23/2024 6:23 AM EDT [facility] CITROBACTER FREUNDII Not Detected 23.000 - 31.881 ppm 09/23/2024 6:23 AM EDT [facility] ENTEROBACTER AEROGENES, CLOACAE 0.000 23.000 - 31.535 ppm 09/23/2024 6:23 AM EDT [facility] ENTEROBACTER AEROGENES, CLOACAE Not Detected 23.000 - 31.535 ppm 09/23/2024 6:23 AM EDT [facility] ENTEROCOCCUS FAECALIS, FAECIUM 0.000 26.000 - 31.575 ppm 09/23/2024 6:23 AM EDT [facility] ENTEROCOCCUS FAECALIS, FAECIUM Not Detected 26.000 - 31.575 ppm 09/23/2024 6:23 AM EDT [facility] ESCHERICHIA COLI 0.000 23.000 - 28.500 ppm 09/23/2024 6:23 AM EDT [facility] ESCHERICHIA COLI Not Detected 23.000 - 28.500 ppm 09/23/2024 6:23 AM EDT [facility] KLEBSIELLA PNEUMONIAE, OXYTOCA 0.000 23.000 - 30.500 ppm 09/23/2024 6:23 AM EDT [facility] KLEBSIELLA PNEUMONIAE, OXYTOCA Not Detected 23.000 - 30.500 ppm 09/23/2024 6:23 AM EDT [facility] MORGANELLA MORGANII 0.000 19.961 - 24.689 ppm 09/23/2024 6:23 AM EDT [facility] MORGANELLA MORGANII Not Detected 19.961 - 24.689 ppm 09/23/2024 6:23 AM EDT [facility] PROTEUS MIRABILIS, VULGARIS 0.000 23.000 - 28.500 ppm 09/23/2024 6:23 AM EDT [facility] PROTEUS MIRABILIS, VULGARIS Not Detected 23.000 - 28.500 ppm 09/23/2024 6:23 AM EDT [facility] PSEUDOMONAS AERUGINOSA 0.000 23.000 - 28.500 ppm 09/23/2024 6:23 AM EDT [facility] PSEUDOMONAS AERUGINOSA Not Detected 23.000 - 28.500 ppm 09/23/2024 6:23 AM EDT [facility] STAPHYLOCOCCUS AUREUS 0.000 26.000 - 30.902 ppm 09/23/2024 6:23 AM EDT [facility] STAPHYLOCOCCUS AUREUS Not Detected 26.000 - 30.902 ppm 09/23/2024 6:23 AM EDT [facility] STREPTOCOCCUS AGALACTIAE (GROUP B STREP) 0.000 26.000 - 32.222 ppm 09/23/2024 6:23 AM EDT [facility] STREPTOCOCCUS AGALACTIAE (GROUP B STREP) Not Detected 26.000 - 32.222 ppm 09/23/2024 6:23 AM EDT [facility] PRESTON ALBICANS, PARAPSILOSIS, TROPICALIS 0.000 19.961 - 30.770 ppm 09/23/2024 6:23 AM EDT [facility] PRESTON ALBICANS, PARAPSILOSIS, TROPICALIS Not Detected 19.961 - 30.770 ppm 09/23/2024 6:23 AM EDT [facility] PRESTON GLABRATA 0.000 23.000 - 32.138 ppm 09/23/2024 6:23 AM EDT [facility] PRESTON GLABRATA Not Detected 23.000 - 32.138 ppm 09/23/2024 6:23 AM EDT [facility] PRESTON KRUSEI 0.000 23.000 - 32.271 ppm 09/23/2024 6:23 AM EDT [facility] PRESTON KRUSEI Not Detected 23.000 - 32.271 ppm 09/23/2024 6:23 AM EDT [facility] SERRATIA MARCESCENS 0.000 23.000 - 31.204 ppm 09/23/2024 6:23 AM EDT [facility] SERRATIA MARCESCENS Not Detected 23.000 - 31.204 ppm 09/23/2024 6:23 AM EDT [facility] STREPTOCOCCUS PYOGENES (GROUP A STREP) 0.000 19.961 - 24.689 ppm 09/23/2024 6:23 AM EDT [facility] STREPTOCOCCUS PYOGENES (GROUP A STREP) Not Detected 19.961 - 24.689 ppm 09/23/2024 6:23 AM EDT [facility] STAPHYLOCOCCUS EPIDERMIDIS, HAEMOLYTICUS, LUGDUNENSIS, SAPROPHYTICUS (URINA 0.000 19.961 - 24.689 ppm 09/23/2024 6:23 AM EDT [facility] STAPHYLOCOCCUS EPIDERMIDIS, HAEMOLYTICUS, LUGDUNENSIS, SAPROPHYTICUS (URINA Not Detected 19.961 - 24.689 ppm 09/23/2024 6:23 AM EDT [facility] STAPHYLOCOCCUS EPIDERMIDIS, HAEMOLYTICUS, LUGDUNENSIS, SAPROPHYTICUS (URINA 30.380(A) 19.961 - 24.689 ppm 09/23/2024 6:23 AM EDT [facility] STAPHYLOCOCCUS EPIDERMIDIS, HAEMOLYTICUS, LUGDUNENSIS, SAPROPHYTICUS (URINA Detected(A) 19.961 - 24.689 ppm 09/23/2024 6:23 AM EDT [facility] ERMB, C; MEFA 18.368(A) 23.000 - 27.611 ppm 09/23/2024 6:23 AM EDT [facility] ERMB, C; MEFA Detected(A) 23.000 - 27.611 ppm 09/23/2024 6:23 AM EDT [facility] TET B, TET M 17.822(A) 23.000 - 27.778 ppm 09/23/2024 6:23 AM EDT [facility] TET B, TET M Detected(A) 23.000 - 27.778 ppm 09/23/2024 6:23 AM EDT [facility] Urine 09/22/2024 12:5 4 PM EDT 09/23/2024 1:28 AM EDT us Brandy SEARS LAB BLOOD ORDERABLES Final Resul t [facility] [address] [place] [address] * RECURRENT VAGINITIS (HTRX) (09/06/2024 3:59 PM EDT) Pathologist [facility] ATOPOBIUM VAGINAE 0.000 19.961 - 24.689 ppm 09/07/2024 6:01 AM EDT [facility] ATOPOBIUM VAGINAE Not Detected 19.961 - 24.689 ppm 09/07/2024 6:01 AM EDT [facility] BVAB 2,3 (BACTERIAL VAGINOSIS ASSOCIATED BACTERIA 2, 3); MOBILUNCUS SPP 0.000 19.961 - 24.689 ppm 09/07/2024 6:01 AM EDT [facility] BVAB 2,3 (BACTERIAL VAGINOSIS ASSOCIATED BACTERIA 2, 3); MOBILUNCUS SPP Not Detected 19.961 - 24.689 ppm 09/07/2024 6:01 AM EDT [facility] PRESTON ALBICANS, PARAPSILOSIS, TROPICALIS 0.000 19.961 - 30.770 ppm 09/07/2024 6:01 AM EDT [facility] PRESTON ALBICANS, PARAPSILOSIS, TROPICALIS Not Detected 19.961 - 30.770 ppm 09/07/2024 6:01 AM EDT [facility] PRESTON GLABRATA 0.000 23.000 - 32.138 ppm 09/07/2024 6:01 AM EDT [facility] PRESTON GLABRATA Not Detected 23.000 - 32.138 ppm 09/07/2024 6:01 AM EDT [facility] PRESTON KRUSEI 0.000 23.000 - 32.271 ppm 09/07/2024 6:01 AM EDT [facility] PRESTON KRUSEI Not Detected 23.000 - 32.271 ppm 09/07/2024 6:01 AM EDT [facility] CHLAMYDIA TRACHOMATIS 0.000 23.000 - 31.467 ppm 09/07/2024 6:01 AM EDT [facility] CHLAMYDIA TRACHOMATIS Not Detected 23.000 - 31.467 ppm 09/07/2024 6:01 AM EDT [facility] GARDNERELLA VAGINALIS 0.000 19.961 - 24.689 ppm 09/07/2024 6:01 AM EDT [facility] GARDNERELLA VAGINALIS Not Detected 19.961 - 24.689 ppm 09/07/2024 6:01 AM EDT [facility] MEGASPHAERA (TYPES 1, 2) 0.000 19.961 - 24.689 ppm 09/07/2024 6:01 AM EDT [facility] MEGASPHAERA (TYPES 1, 2) Not Detected 19.961 - 24.689 ppm 09/07/2024 6:01 AM EDT [facility] NEISSERIA GONORRHOEAE 0.000 23.000 - 32.117 ppm 09/07/2024 6:01 AM EDT [facility] NEISSERIA GONORRHOEAE Not Detected 23.000 - 32.117 ppm 09/07/2024 6:01 AM EDT [facility] TRICHOMONAS VAGINALIS 0.000 23.000 - 32.119 ppm 09/07/2024 6:01 AM EDT [facility] TRICHOMONAS VAGINALIS Not Detected 23.000 - 32.119 ppm 09/07/2024 6:01 AM EDT [facility] MYCOPLASMA GENITALIUM 0.000 19.961 - 24.689 ppm 09/07/2024 6:01 AM EDT [facility] MYCOPLASMA GENITALIUM Not Detected 19.961 - 24.689 ppm 09/07/2024 6:01 AM EDT [facility] Tissue 09/06/2024 3:59 PM EDT 09/07/2024 1:25 AM EDT Brandy SEARS LAB BLOOD ORDERABLES Final Resul t [facility] [address] [place] [address] * HBSAG SCREEN (08/29/2024 4:35 PM EDT) [facility] HBSAG SCREEN Negative Negative [facility] Comment: Performed at: [address] [id number] Youth Coordinator: Jason Spangler PhD, Phone: [phone] 08/29/2024 4:35 PM EDT 08/29/2024 4:38 PM EDT Narrative CLINISYNC - 08/31/2024 1:08 PM EDT us Layo Courtney DO LAB BLOOD ORDERABLES Final Resul t [facility] * RAPID PLASMA REAGIN, QUANT (08/29/2024 4:35 PM EDT) RAPID PLASMA REAGIN, QUANT Non Reactive NonRea<1: 1 titer [facility] Comment: Please Note: This test does not meet current guidelines for screening and diagnosis of syphilis. This test is intended for following treatment response in patients being treated for syphilis infection. To screen for syphilis infection, a reflex cascade that includes both RPR and a treponema-specific assay should be utilized, such as Treponema pallidum (Syphilis) Screening [place] (844879) or Rapid Plasma Reagin (RPR) Test With Reflex to Quantitative RPR and Confirmatory Treponema pallidum Antibodies ([id number]). Performed at: [address] [id number] Youth Coordinator: Jason Spangler PhD, Phone: [phone] 08/29/2024 4:35 PM EDT 08/29/2024 4:38 PM EDT Narrative CLINISYNC - 08/31/2024 1:08 PM EDT Proxioo DO LAB BLOOD ORDERABLES Final Resul t Performing Organization Address [facility] de Phone Number [facility] * HIV AB/P24 AG WITH REFLEX (08/29/2024 4:35 PM EDT) Pathologist [facility] HIV AB/P24 AG SCREEN Non Reactive Non Reactive [facility] Comment: HIV-1/HIV-2 antibodies and HIV-1 p24 antigen were NOT detected. There is no laboratory evidence of HIV infection. HIV Negative Performed at: [address] [id number] Youth Coordinator: Jason Spangler PhD, Phone: [phone] 08/29/2024 4:35 PM EDT 08/29/2024 4:38 PM EDT Narrative CLINISYNC - 08/31/2024 5:07 AM EDT us Layo Sherwin DO LAB BLOOD ORDERABLES Final Resul t Performing Organization Address [facility] Co de Phone Number [facility] * HCV ANTIBODY RFX TO QUANT PCR (08/29/2024 4:35 PM EDT) Pathologist [facility] HCV AB Non Reactive Non Reactive [facility] INTERPRETATION: Comment . [facility] Comment: Not infected with HCV unless early or acute infection is suspected (which may be delayed in an immunocompromised individual), or other evidence exists to indicate HCV infection. Performed at: - [address] [id number] Youth Coordinator: Jason Spangler PhD, Phone: [phone] 08/29/2024 4:35 PM EDT 08/29/2024 4:38 PM EDT Narrative CLINISYNC - 08/31/2024 8:08 AM EDT [facility] BLOOD ORDERABLES Final Resul t [facility] * MLR HEMOGLOBIN A1C (08/29/2024 4:35 PM EDT) Pathologist [facility] GLYCOHEMOGLOBIN A1C 4.8 4.5 - 6.2 % [facility] Comment: ADA RECOMMENDED LIMIT 4.0 - 6.0 ADA THERAPEUTIC TARGET < 7.0 ACTION SUGGESTED > 7.0 ESTIMATED AVERAGE GLUCOSE 91 mg/dL [facility] 08/29/2024 4:35 PM EDT 08/29/2024 4:38 PM EDT Narrative CLINISYNC - 08/29/2024 4:54 PM EDT [facility] Final Result [facility] * ALL TYPE AND SCREEN (08/29/2024 4:35 PM EDT) Pathologist [facility] BLOOD TYPE O Positive [facility] ANTIBODY SCREEN NEGATIVE TB 08/29/2024 4:35 PM EDT 08/29/2024 4:38 PM EDT Narrative CLINISYNC - 08/29/2024 5:33 PM EDT [facility] , us Layo Sherwin DO CLINISYNC Final Result [facility] * ALL RUBELLA IGG AB (08/29/2024 4:35 PM EDT) RUBELLA ANTIBODIES, IGG 1.40 Immune >0.99 index [facility] Comment: Non-immune <0.90 Equivocal 0.90 - 0.99 Immune >0.99 Performed at: [facility] [address] [id number] Youth Coordinator: Jason Spangler PhD, Phone: [phone] 08/29/2024 4:35 PM EDT 08/29/2024 4:38 PM EDT Narrative CLINISYNC - 08/31/2024 8:08 AM EDT us Layo Sherwin DO CLINISYNC Final Result [facility] * [facility] DRUG SCREEN RAPID (URINE) (08/29/2024 4:25 PM EDT) CANNABINOID SCREEN URINE NEGATIVE NEGATIVE [facility] PHENCYCLIDINE [...] Narrative CLINISYNC - 08/29/2024 4:54 PM EDT us Layo Courtney DO CLINISYNC Final Result [facility] from Last 3 Months Insurance [employer]
--- OUTSIDE RECORDS SUMMARY | 2024-11-26 08:58 | XMS_ITS | Encounter Summary ---
Author Organization [facility] Address [address] [place] [address] Phone Care Team Providers Care Medical Scientist Name Role Phone Allyssa Robles RN Unavailable Unavailable Encounter Details Date Type Department Care Team (Late st Contact Info) Description 06/23/2024 Lab Requisition [facility] [address] [place] [phone] America Chavez, PRODUCT SUPPORT ANALYST-TANBARK LABORER [address] [place] [address] Female infertility, unspecified 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 Tobacco Use [...] Hold for add-ons. 06/23/2024 10:02 AM EST [facility] Comment:Auto resulted. Blood Venous blood specimen / Unknown 06/23/2024 7:53 AM EST 06/23/2024 8:35 AM EST America Chavez PRODUCT SU[facility] BLOOD ORDERABLES Final Result Performing Organization Address City/[facility]/ZIP Co de Phone Number [facility] [address] [place], [place] [id number] * Phleb Charge - Venipuncture (Lab Use Only) (06/23/2024 7:53 AM EST) Blood Venous blood specimen / Unknown 06/23/2024 7:53 AM EST 06/23/2024 8:35 AM EST America Chavez [facility] BLOOD ORDERABLES Final Result Performing Organization Address City/[facility]/ZIP Co de Phone Number [facility] [address] [place] [address] * Estradiol (06/23/2024 7:53 AM EST) Estradiol 378 pg/mL LAB IMMUNOASSAY METHOD 06/23/2024 9:14 AM EST [facility] Blood Venous blood specimen / Unknown 06/23/2024 7:53 AM EST 06/23/2024 8:35 AM EST Narrative [facility] - 06/23/2024 9:14 AM EST REF VALUES FOLLICULAR PHASE 20-144 MID CYCLE 64-357 LUTEAL PHASE 56-214 POSTMENOPAUSE < 32 PREPUBERTY < 20 FEMALE 10-18Y 8-110 MALE 10-18Y < 20 ADULT MALE < 40 Estradiol measurement is performed using the Faith Cristopher Access Estradiol Immunoassay. Estradiol testing is performed using a different test methodology at [facility] than other [facility]. Direct result comparison should only be made within the same method. Americaroxy Chavez PRODUCT SUPPORT ANALYSTEat LatinTANBARK LABORER LAB BLOOD ORDERABLES Final Result Performing Organization Address City/[facility]/ZIP Co de Phone Number [facility] [address] [place] [address] * Progesterone (06/23/2024 7:53 AM EST) [facility] Progesterone 42.6 ng/mL LAB IMMUNOASSAY METHOD 06/23/2024 10:10 AM EST [facility] Blood Venous blood specimen / Unknown 06/23/2024 7:53 AM EST 06/23/2024 8:35 AM EST Narrative [facility] - 06/23/2024 10:10 AM EST REF VALUES Male <0.2-0.8 Follicular Phase <0.2-1.5 Luteal Phase 7.4-15.4 Post Menopausal <0.2-0.2 1ST Trimester 12.0-84.0 2ND Trimester 10.2-58.8 3RD Trimester 46.5-160 Progesterone is performed using the Faith Areshay Access Immunoassay. Progesterone testing is performed using a different test methodology at [facility] than other [facility]. Direct result comparison should only be made within the same method. Americaroxy Chavez PRODUCT SUPPORT ANALYSTEat LatinTANBARK LABORER LAB BLOOD ORDERABLES Final Result Performing Organization Address City/[facility]/ZIP Co de Phone Number [facility] [id number] [place] [address] documented in this encounter Visit Diagnoses Diagnosis Female infertility, unspecified documented in this encounter Care Teams Medical Scientist Relationship Specialty Start Date End Date Allyssa Robles, RN Registered Nurse Reproductive Endocrinology and Infertility 12/25/23 documented as of this encounter
--- OUTSIDE RECORDS SUMMARY | 2024-11-26 08:58 | XMS_ITS | Encounter Summary ---
Author Organization [facility] Address [address] [place] [address] [place] [address] Care Team Providers Care Sweat Band Sewer Name Role Phone Unavailable Primary Care Provider Unavailabl e Encounter Details Date Type Department Care Team (Late st Contact Info) Description 01/21/2024 Orders Only SHIRA ZACARIAS [address] [place] [phone] Marilia Elder MA [address] [place] [address] 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 Tobacco Use Types Packs/Day Years [...] 12/06/2024 8:30 AM EDT Routine SHIRA ZACARIAS [address] [place] [address] [place] [phone] Layo Courtney DO [address] [place], [place] [phone] documented as of this encounter Procedures Procedure Name Priority Date/Time Associated Diagnosis Comments PAP SMEAR Routine 01/14/2024 12:00 AM EDT documented in this encounter Results * Pap Smear (01/14/2024 12:00 AM EDT) Swab Cervical swab / Unknown Br[facility] LAB CYTOLOGY ORDERABLES Final Re sult [facility] documented in this encounter Visit Diagnoses Not on filedocumented in this encounter
--- OUTSIDE RECORDS SUMMARY | 2024-11-26 08:58 | XMS_ITS | Encounter Summary ---
Author Organization [facility] Address [address] [place] [address] Care Team Providers Care Glove Brusher Name Role Phone Unavailable Primary Care Provider Unavailabl e Encounter Details Date Type Department Care Team (Late st Contact Info) Description 11/08/2024 Abstract [facility] Yanira ZACARIAS [address] [place] [address] Emilia Donahue MA 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 Tobacco Use Types Packs/Day Years [...] Info) Description 12/06/2024 8:30 AM EDT Routine NOMKenisha ZACARIAS [address] [place] [address] Layo Courtney DO [address] [facility] [address] [place], [place] [id number] documented as of this encounter Visit Diagnoses Not on filedocumented in this encounter
--- OUTSIDE RECORDS SUMMARY | 2024-11-26 08:58 | XMS_ITS | Encounter Summary ---
Author Organization [facility] Address [address] [place] [address] Care Team Providers Care Account Advisor Name Role Phone Unavailable Primary Care Provider Unavailabl e Encounter Details Date Type Department Care Team (Late st Contact Info) Description 04/10/2023 Clinisync Result Encounter NOMS External Department Unsolicited Rula Courtney [address] [place] [address] 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 Tobacco Use Types Packs/Day Years [...] Info) Description 12/06/2024 8:30 AM EDT Routine [facility] David OBGYIrene [address] [place] [address] [place] [phone] Rula Courtney DO [address] [place] [address] [place] [address] documented as of this encounter Procedures Procedure Name Priority Date/Time Associated Diagnosis Comments FL HYSTEROSALPINGOGRAPHY 023 3:10 PM EST documented in this encounter Results * FL HYSTEROSALPINGOGRAPHY (04/10/2023 3:10 PM EST) Anatomical Region Laterality Modality Other 04/10/2023 3:10 PM EST Narrative 04/10/2023 3:13 [place] [address] Fluoroscopy Report Signed Patient: OLENA PEREYRA MR#: [id number] : 1995 Acct:[id number] Age/Sex: 27 / F ADM Date: 04/10/23 Loc: LAB Attending Dr: Rula Courtney D.O. Ordering Physician: Rula Courtney D.O. Date of Service: 04/10/23 Procedure(s): FL hysterosalpingography Accession Number(s): [id number] cc: Rula Courtney D.O.; Physician,Non-Staff Steven [address] [place] [address] Patient Name: OLENA PEREYRA MRN: [id number] date: 1995 Sex: F Assigned Patient Location: LAB Current Patient Location: Accession/Order Number: [id number] Exam Date: 04/10/2023 14:30 Report Date: 04/10/2023 [...] By: Sridhar Lainez M.D. Signed By: 04/10/23 1513 DD/ 09 TD/TT: Perinatal Instructor: Procedure Note Radiology, Radiologist, - 04/10/2023 [place] [address] Fluoroscopy Report Signed Patient: OLENA PEREYRA RMR#: [id number] : 1995Acct:[id number] Age/Sex: 27 / FADM Date: 04/10/23 Loc: LAB Attending Dr: Rula Courtney D.O. Ordering Physician: Rula Courtney D.O. Date of Service: 04/10/23 Procedure(s): FL hysterosalpingography Accession Number(s): [id number] cc: Rula Courtney D.O.; Physician,Non-Staff Steven [facility] [address] [address] Patient Name: OLENA PEREYRA MRN: [id number] date: 1995 Sex: F Assigned Patient Location: LAB Current Patient Location: Accession/Order Number: [id number] Exam Date: 04/10/2023 14:30 Report Date: 04/10/2023 15:10 At the request of: RULA COUTRNEY Procedure: FL hysterosalpingography EXAMINATION: FL hysterosalpingography HISTORY: [...] Dictated By: Sridhar Lainez M.D. Signed By:04/10/23 1513 DD/ 09 TD/TT: Perinatal Instructor: Rula Courtney DO [facility] Final Result documented in this encounter Visit Diagnoses Not on filedocumented in this encounter
--- OUTSIDE RECORDS SUMMARY | 2024-11-26 08:58 | XMS_ITS | Encounter Summary ---
Author Organization [facility] Address [address] [place] [address] Care Team Providers Care Information Resources Director Name Role Phone Unavailable Primary Care Provider Unavailabl e Encounter Details Date Type Department Care Team (Late st Contact Info) Description 01/22/2024 Abstract [facility] Yanira ZACARIAS [facility] [place] [address] Layo Courtney DO [address], [facility]11 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 Tobacco Use Types Packs/Day Years [...] 12/06/2024 8:30 AM EDT Routine SHIRA ZACARIAS [facility] [place] [phone] Layo Courtney DO [address], [facility]11 documented as of this encounter Visit Diagnoses Not on filedocumented in this encounter
--- OUTSIDE RECORDS SUMMARY | 2024-11-26 08:58 | XMS_ITS | Encounter Summary ---
Author Organization [facility] Address [address] [place] [address] Care Team Providers Care Mayonnaise Mixer Name Role Phone Unavailable Primary Care Provider Unavailabl e Encounter Details Date Type Department Care Team (Late st Contact Info) Description 08/02/2024 Abstract [facility] Yanira ZACARIAS [facility] [place] [address] Layo Courtney DO [address], [facility]11 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 Tobacco Use Types Packs/Day Years [...] 12/06/2024 8:30 AM EDT Routine NOMKenisha ZACARIAS [facility] [place] [address] Layo Courtney DO [address], [facility]11 documented as of this encounter Visit Diagnoses Not on filedocumented in this encounter
--- OUTSIDE RECORDS SUMMARY | 2024-11-26 08:58 | XMS_ITS | Encounter Summary ---
Author Organization [facility] Address [address] [place] [address] Care Team Providers Care Instructor Product Inspection Name Role Phone Unavailable Primary Care Provider Unavailabl e Encounter Details Date Type Department Care Team (Late st Contact Info) Description 11/18/2024 Abstract [facility] Yanira ZACARIAS [facility] [place] [address] Layo Courtney DO [address], [facility]11 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 Tobacco Use Types Packs/Day Years [...] 12/06/2024 8:30 AM EDT Routine NOMKenisha ZACARIAS [facility] [place] [address] Layo Courtney DO [address], [facility]11 documented as of this encounter Visit Diagnoses Not on filedocumented in this encounter
--- OUTSIDE RECORDS SUMMARY | 2024-11-26 08:58 | XMS_ITS | Encounter Summary ---
Author Organization [facility] Address [address] [place] [address] Phone Care Team Providers Care Treasury Manager Name Role Phone Allyssa Robles RN Unavailable Unavailable Encounter Details Date Type Department Care Team (Late st Contact Info) Description 06/06/2024 Lab Requisition [facility] [address] [place] [phone] America Chavez, OPERATIONS ASST-CLOTHES SEPARATOR [address] [place] [address] Female infertility, unspecified 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 Tobacco Use [...] LAB IMMUNOASSAY METHOD 06/06/2024 11:56 AM EST [facility] Blood Venous blood specimen / Unknown 06/06/2024 7:00 AM EST 06/06/2024 10:58 AM EST Narrative [facility] - 06/06/2024 11:56 AM EST REF VALUES FOLLICULAR PHASE 20-144 MID CYCLE 64-357 LUTEAL PHASE 56-214 POSTMENOPAUSE < 32 PREPUBERTY < 20 FEMALE 10-18Y 8-110 MALE 10-18Y < 20 ADULT MALE < 40 America Chavez [facility] BLOOD ORDERABLES Final Result Performing Organization Address City/[facility] de Phone Number [facility] [address] [place] [address] * Progesterone (06/06/2024 7:00 AM EST) Progesterone 0.8 ng/mL LAB IMMUNOASSAY METHOD 06/10/2024 8:43 PM EST [facility] Comment: Blood Venous blood specimen / Unknown 06/06/2024 7:00 AM EST 06/06/2024 10:58 AM EST Narrative [facility] - 06/10/2024 8:43 PM EST REF VALUES Male <0.2-0.8 Follicular Phase <0.2-1.5 Luteal Phase 7.4-15.4 Post Menopausal <0.2-0.2 1ST Trimester 12.0-84.0 2ND Trimester 10.2-58.8 3RD Trimester 46.5-160 Progesterone is performed using the Faith Ammado Access Immunoassay. Progesterone testing is performed using a different test methodology at [facility] than other [facility]. Direct result comparison should only be made within the same method. America Chavez [facility] BLOOD ORDERABLES Edite d Result - Final [facility] [address] [place] [address] documented in this encounter Visit Diagnoses Diagnosis Female infertility, unspecified documented in this encounter Care Teams Treasury Manager Relationship Specialty Start Date End Date Allyssa Robles, MISHEL Registered Nurse Reproductive Endocrinology and Infertility 12/25/23 documented as of this encounter
--- OUTSIDE RECORDS SUMMARY | 2024-11-26 08:58 | XMS_ITS | Encounter Summary ---
Author Organization [facility] Address [address] [place] [address] Care Team Providers Care Demographer Name Role Phone Unavailable Primary Care Provider Unavailabl e Encounter Details Date Type Department Care Team (Late Contact Info) Description 09/21/2024 Abstract [facility] Yanira ZACARIAS [facility] [place] [address] Layo Courtney DO [address], [facility]11 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 Tobacco Use Types Packs/Day Years [...] 12/06/2024 8:30 AM EDT Routine NOMKenisha ZACARIAS [facility] [place] [address] Layo Courtney DO [address], [facility]11 documented as of this encounter Visit Diagnoses Not on filedocumented in this encounter
--- OUTSIDE RECORDS SUMMARY | 2024-11-26 08:58 | XMS_ITS | Encounter Summary ---
Author Organization [facility] Address [address] [place] [address] Care Team Providers Care Conference Service Coordinator Name Role Phone Unavailable Primary Care Provider Unavailabl e Encounter Details Date Type Department Care Team (Late st Contact Info) Description 03/23/2023 Abstract [facility] Yanira [address]ACARIAS [address] [place] [address] Cassy Licea LPN [address] [facility] [place] [address] 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 Tobacco Use Types Packs/Day [...] 12/06/2024 8:30 AM EDT Routine NOMKenisha ZACARIAS [address] [place] [address] [place] [address] Layo Courtney DO [address] [facility] [address] [place], [facility]11 documented as of this encounter Visit Diagnoses Not on filedocumented in this encounter
--- OUTSIDE RECORDS SUMMARY | 2024-11-26 08:58 | XMS_ITS | Encounter Summary ---
Author Organization [facility] Address [address] [place] [address] Care Team Providers Care Director Of Income Tax Name Role Phone Unavailable Primary Care Provider Unavailabl e Encounter Details Date Type Department Care Team (Late st Contact Info) Description 04/13/2023 Clinisync Result Encounter NOMS External Department Unsolicited Rula Courtney [address] [place] [address] 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 Tobacco Use Types Packs/Day Years [...] 8:30 AM EDT Routine [facility] David OBGYIrene [address] [place] [address] [place] [address] Rula Courtney DO [address] [place] [address] [place] [address] documented as of this encounter Procedures Procedure Name Priority Date/Time Associated Diagnosis Comments FL HYSTEROSALPINGOGRAM 10:54 AM EST documented in this encounter Results * FL HYSTEROSALPINGOGRAM (04/13/2023 10:54 AM EST) Anatomical Region Laterality Modality Other 04/13/2023 10:5 4 AM EST Narrative 04/13/2023 10:56 [place] [address] Fluoroscopy Report Signed Patient: OLENA PEREYRA MR#: [id number] : 1995 Acct:[id number] Age/Sex: 27 / F ADM Date: 04/10/23 Loc: LAB Attending Dr: Rula Courtney D.O. Ordering Physician: Rula Courtney D.O. Date of Service: 04/10/23 Procedure(s): FL Hysterosal cath placement Accession Number(s): [id number] cc: Rula Courtney D.O.; Physician,Non-Staff Steven [address] [place] [id number] Patient Name: OLENA PEREYRA MRN: [id number] date: 1995 Sex: F Assigned Patient Location: LAB Current Patient Location: LAB Accession/Order Number: [id number] Exam Date: 04/10/2023 14:30 Report Date: 04/13/2023 10:54 At the request of: RULA COURTNEY Procedure: FL Hysterosal cath placement EXAM: FL Hysterosal cath placement HISTORY: Infertility TECHNIQUE: FINDINGS: Please see Operative Report. Electronically authenticated by: DARRYN LONDON Date: 04/13/2023 10:54 Dictated By: Darryn London Signed By: 04/13/23 1056 DD/ 1054 TD/TT: Branch Lending Officer: Procedure Note Radiology, Radiologist, MD - 04/13/2023 [place] [address] Fluoroscopy Report Signed Patient: OLENA PEREYRA RMR#: [id number] : 1995Acct:[id number] Age/Sex: 27 / FADM Date: 04/10/23 Loc: LAB Attending Dr: Rula Courtney D.O. Ordering Physician: Rula Courtney D.O. Date of Service: 04/10/23 Procedure(s): FL Hysterosal cath placement Accession Number(s): [id number] cc: Rula Courtney D.O.; Physician,Non-Staff Steven [address] [place] [id number] Patient Name: OLENA PEREYRA MRN: [id number] date: 1995 Sex: F Assigned Patient Location: LAB Current Patient Location: LAB Accession/Order Number: [id number] Exam Date: 04/10/2023 14:30 Report Date: 04/13/2023 10:54 At the request of: RULA COURTNEY Procedure: FL Hysterosal cath placement EXAM: FL Hysterosal cath placement HISTORY: Infertility TECHNIQUE: FINDINGS: Please see Operative Report. Electronically authenticated by: DARRYN LONDON Date: 04/13/2023 10:54 Dictated By: Darryn London Signed By:04/13/23 1056 DD/ 1054 TD/TT: Branch Lending Officer: us Rula Courtney DO [facility] Final Result documented in this encounter Visit Diagnoses Not on filedocumented in this encounter
--- OUTSIDE RECORDS SUMMARY | 2024-11-26 08:59 | XMS_ITS ---
Author Organization [facility] Address [address] [place] [address] Phone Care Team Providers Care Geospatial Technologist Name Role Phone Allyssa Robles RN Unavailable Unavailable Fertility Core Status:Enrolled (Active) Start date:02/24/2024 Enrollment date:02/29/2024 Enrollment reason:Identified from a specialty prescription Current support & services provided:Refill Management, Benefits and PA Management Linked medications:lidocaine/prilocaine (Active), progesterone (Active), transparent dressing () Continued Care and Services Coordination
--- OUTSIDE RECORDS SUMMARY | 2024-11-26 08:59 | XMS_ITS | Encounter Summary ---
Author Organization [facility] Address [address] [place] [address] Phone Care Team Providers Care Client Operations Manager Name Role Phone Allyssa Robles RN Unavailable Unavailable Encounter Details Date Type Department Care Team (Late st Contact Info) Description 06/13/2024 Lab Requisition [facility] [address] [place] [address] Juan Chavarria MD [address] [facility] [place], [facility] [address] [place], [place] [id number] Female infertility, unspecified 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 Tobacco Use [...] LAB IMMUNOASSAY METHOD 06/13/2024 2:07 PM EST [facility] Blood Venous blood specimen / Unknown 06/13/2024 11:38 AM EST 06/13/2024 12:46 PM EST Narrative [facility] - 06/13/2024 2:07 PM EST REF VALUES Male <0.2-0.8 Follicular Phase <0.2-1.5 Luteal Phase 7.4-15.4 Post Menopausal <0.2-0.2 1ST Trimester 12.0-84.0 2ND Trimester 10.2-58.8 3RD Trimester 46.5-160 Progesterone is performed using the Faith Ridgely Access Immunoassay. Progesterone testing is performed using a different test methodology at [facility] than other [facility]. Direct result comparison should only be made within the same method. us Juan Chavarria MD LAB BLOOD ORDERABLES Final R esult [facility] [address] [place] [address] documented in this encounter Visit Diagnoses Diagnosis Female infertility, unspecified documented in this encounter Care Teams Client Operations Manager Relationship Specialty Start Date End Date Allyssa Robles, RN Registered Nurse Reproductive Endocrinology and Infertility 12/25/23 documented as of this encounter
--- OUTSIDE RECORDS SUMMARY | 2024-11-26 08:59 | XMS_ITS | Clinical Summary ---
Author Organization [facility] Address [address] [place] [address] Phone Care Team Providers Care Instrument Operator Name Role Phone Allyssa Robles RN Unavailable Unavailable Allergies Active Allergy Reactions Criticality Noted Date Comments Latex Rash Low 2023 Nickel Rash Low 2023 Medications vnyamvmz40-gbor- folic-omega3 29-1-400 mg combo pack,tablet and cap,DR [...] PM EDT Hospital Encounter Valeria Hay [address] [place] [id number] ([facility]) Discharge Disposition: Home 10/07/2024 Travel from Last 3 Months Family History [...] Date Last Done Comments Lipid Panel 1997 MMR Vaccines (1 of 1 - Stand miya series) 1998 Varicella Vaccines (2 of 2 - 2-dose childhood series) 03/14/2010 12/20/2009 HPV Vaccines (1 - 3-dose series) 2012 Hepatitis B Vaccines (1 of 3 - 19+ 3-dose series) 2016 HPV/Cotest 2018 DTaP/Tdap/Td Vaccines (2 - T d or Tdap) 12/21/2019 12/20/2009 COVID-19 Vaccine ( - 2023-2 5 season) 2024 Influenza Vaccine (#1) 2025 Yearly Adult Physical 01/14/2025 01/14/2024 Cervical Cancer Screening 01/13/2027 Pap Smear 01/13/2027 [...] DETAIL ANATOMY Routine 10/07/2024 9:24 AM EDT ([facility]) HEPATITIS C ANTIBODY Routine 2023 10:21 AM [...] EFW (oz) 12 oz EFW by: Hadlock ([id number]) Extended Power Line Installer And Repairer 6.0 mm CM 4.4 mm 36% Nicolaides [...] Normal LVOT view: Normal 3-vessel view: Normal 2-kzrvla-zmvoezx view: Normal Heart / Thorax Situs: situs [...] via Assisted[employer]ductive [employer] History ====== General History Vwvyzh468 cm Height (ft)5 ft Height (in)3 in Previous Outcomes Gravida1 Para0 Maternal Assessment Ylrsdl437 cm Height (ft)5 ft Height (in)3 in Blihvd74 kg Weight (lb)165 lb Weight gain0 kg [...] 87% Hadlock Femur32.4 mm20w 1d 73% Hadlock Rjqzabj56.4 mm 45% Chitty HC / AC1.05 2% Hadlock SLU090 g20w 1d 91% Hadlock EFW (lb)0 lb EFW (oz)12 oz EFW by:Hadlock ([id number]) Extended Vp6.0 mm CM4.4 mm 36% Nicolaides Nasal bone4.7 mm Head / Face / Neck Cephalic index0.74 10% Nicolaides Nasal bone:present Extremities / Bony Struc FL / BPD0.74 92% Hadlock FL / HC0.20 96% Hadlock FL / AC0.21 35% Hadlock Other Structures FEC539 bpm Anatomy Cranium:Normal Lateral ventricles:Normal Choroid plexus:Normal [...] view:Normal RVOT view:Normal LVOT view:Normal 3-vessel view:Normal 1-wqcuva-oazpdlp view:Normal Heart / Thorax Situs:situs solitus (normal) [...] Free fluid:No free fluid visualized us Layo Morris Courtney DO IMG OB US PROCEDURES Florina l Result * Hepatitis C Antibody (2023 10:21 AM EDT) Hepatitis C AB Nonreactive Nonreactive LAB IMMUNOASSAY METHOD 2023 7:11 PM EDT [facility] Comment:Results from patient s taking biotin supplements or receiving high-dose biotin therapy should be interpreted with caution due to possible interference with this test. Providers may contact their local laboratory for further information. Blood Venous blood specimen / Unknown Venipuncture / Unknown 2023 10:21 AM EDT 2023 10:21 AM EDT Trish Sun PROGRESSIVE CARE NURSE-COMMUNITY LEADER LAB BLOOD ORDERABLES Fin al Result Performing Organization Address [facility] Co de Phone Number [facility] [id number] [place] [phone] * HIV 1/2 Antigen/Antibody Screen with Reflex to Confirmation (2023 10:21 AM EDT) HIV 1/2 Antigen/Antibo dy Screen with Reflex to Confirmation Nonreactive Nonreactive LAB IMMUNOASSAY METHOD 2023 7:37 PM EDT [facility] Blood Venous blood specimen / Unknown Venipuncture / Unknown 2023 10:21 AM EDT 2023 10:21 AM EDT Narrative [facility] - 2023 7:37 PM EDT HIV Ag/Ab screen is performed using the Siemens InvisibleCRM HIV Ag/Ab Combo assay which detects the presence of HIV p24 antigen as well as antibodies to HIV-1 (Group M and O) and HIV-2. No laboratory evidence of HIV infection. If acute HIV infection is suspected, consider testing for HIV RNA by PCR (viral load). Trish Christ Dino PROGRESSIVE CARE NURSE-COMMUNITY LEADER LAB BLOOD ORDERABLES Fin al Result Performing Organization Address [facility] Co de Phone Number [facility] [id number] [place] [phone] from Last 3 Months or Most Recently Relevant to Health Maintenance Insurance [employer] [place] [employer] [place] [employer] Care Teams Instrument Operator Relationship Specialty Start Date End Date Allyssa Robles, RN Registered Nurse Reproductive Endocrinology and Infertility 12/25/23
--- OUTSIDE RECORDS SUMMARY | 2024-11-26 08:59 | XMS_ITS | Encounter Summary ---
Author Organization [facility] Address [address] [place] [address] Phone Care Team Providers Care Dock Or Pier Laborer Name Role Phone Allyssa Robles RN Unavailable Unavailable Encounter Details Date Type Department Care Team (Late st Contact Info) Description 06/30/2024 Lab Requisition [facility] [address] [place] [address] Leigh Ann Tuttle MD [address] [facility] [place], [address] [phone] Female infertility, unspecified 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 Tobacco Use [...] LAB IMMUNOASSAY METHOD 06/30/2024 10:41 AM EST [facility] Comment:Low-level positive H [...] AM EST 06/30/2024 10:01 AM EST Narrative [facility] - 06/30/2024 10:41 AM EST Total HCG measurement is performed using the [employer] Access Immunoassay which detects intact HCG and free beta HCG subunit. This test is not indicated for use as a tumor marker. HCG testing is performed using a different test methodology at [facility] than other [facility]. Direct result comparison should only be made within the same method. us Leigh Ann Tuttle MD LAB BLOOD ORDERABLES Final Re sult Performing Organization Address City/State/[facility] Co de Phone Number [facility] [address] [phone] documented in this encounter Visit Diagnoses Diagnosis Female infertility, unspecified documented in this encounter Care Teams Dock Or Pier Laborer Relationship Specialty Start Date End Date Allyssa Robles, RN Registered Nurse Reproductive Endocrinology and Infertility 12/25/23 documented as of this encounter
--- OUTSIDE RECORDS SUMMARY | 2024-11-26 08:59 | XMS_ITS | Encounter Summary ---
Author Organization [facility] Address [address] [place] [address] Phone Care Team Providers Care Autocad Technician Name Role Phone Allyssa Robles RN Unavailable Unavailable Encounter Details Date Type Department Care Team (Late st Contact Info) Description 06/23/2024 Lab Requisition [facility] [address] [place] [address] Juan Chavarria MD [address] [facility] [place], [address] [phone] Encounter for test, result unknown 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 [...] 11:04 AM EST [facility] Comment:Low-level positive H CG [...] AM EST Narrative [facility] - 06/23/2024 11:04 AM EST Total HCG measurement is performed using the Faith Cristopher Access Immunoassay which detects intact HCG and free beta HCG subunit. This test is not indicated for use as a tumor marker. HCG testing is performed using a different test methodology at [facility] than other [facility]. Direct result comparison should only be made within the same method. us Juan Chavarria MD LAB BLOOD ORDERABLES Final R esult [facility] [address] [phone] documented in this encounter Visit Diagnoses Diagnosis Encounter for test, result unknown documented in this encounter Care Teams Autocad Technician Relationship Specialty Start Date End Date Allyssa Robles, RN Registered Nurse Reproductive Endocrinology and Infertility 12/25/23 documented as of this encounter
--- OUTSIDE RECORDS SUMMARY | 2024-11-26 09:00 | XMS_ITS | CCD ---
Author Organization [facility] CliniSyal Care Team Providers Care Car Cleaner Name Role Phone Rachana LYONS Primary Care Physician SHERWIN ., DR HORTA Attending Unavailable SHERWIN ., DR HORTA Admitting Unavailable SHERWIN ., DR HORTA Consulting Unavailable SHERWIN ., DR HORTA Admitting Unavailable SHERWIN ., DR HORTA Consulting Unavailable SHERWIN ., DR HORTA Attending Unavailable UNLU, RACQUEL Consulting Unavailable Princess Rapp Primary Care Physician [phone] Allyssa Robles RN Unavailable Unavailable Mallory Jauregui Attending Unavailable Princess Rapp Attending Unavailable [...] Referring Unavailable DWIGHT, AMERICA R Referring Unavailable JOSEMANUEL, DONYA L Referring Unavailable JOSEMANUEL, DONYA L Referring Unavailable JOSEMANUEL, DONYA L Referring Unavailable JOSEMANUEL, DONYA L Referring Unavailable JUAN CHAVARRIA Attending Unavailable JOSEMANUEL, DONYA L Referring Unavailable JOSEMANUEL, DONYA L Referring Unavailable JOSEMANUEL, DONYA L Referring Unavailable JUAN CHAVARRIA Attending Unavailable JUAN CHAVARRIA Referring Unavailable LEIGH ANN TUTTLE Referring Unavailable DONYA ABERNATHY Attending Unavailable LAYO COURTNEY Referring Unavailable LAYO COURTNEY Attending Unavailable BRANDY SHEEHAN Attending Unavailable BRANDY SHEEHAN Attending Unavailable LAYO COURTNEY Attending Unavailable LAYO COURTNEY Attending Unavailable BRANDY SHEEHAN Attending Unavailable LAYO COURTNEY Attending Unavailable Allergies Allergy Classification Reported Allergen(s) Allergy Type Date of Onset Reaction(s) Facility (20 sources) Azithromycin; Translations: [azithromycin] Drug Allergy 03-16-2023 Unknown (qualifier value), Unknown [facility] Work Phone: (20 sources) Latex; Translations: [Latex] Drug allergy 03-16-2023 Rash [facility] Work Phone: (20 sources) nickel; Translations: [Nickel] Drug Allergy 03-16-2023 Rash, Itching [facility] Work Phone: Medications Current Medications Medication Drug Class(es) Dates Sig (Normalized) Sig (Original) cephalexin 500 mg oral capsule (10 sources) Cephalosporin Antibacterial Start: 09-21-2024 take 1 capsule by mouth in the morning cephalexin (Keflex) 500 MG capsule Take 500 mg by mouth in the morning and 500 mg before bedtime. 09/21/2024 Active cetirizine hydrochloride 10 mg oral tablet (10 sources) Histamine-1 Receptor Antagonist Start: 10-04-2024 End: 10-04-2025 take 1 tablet by mouth once daily cetirizine (ZyrTEC ALLERGY) 10 MG tablet Indications: Pruritus of in second trimester ([facility]) Take 1 tablet (10 mg) by mouth Daily 30 tablet 10/04/2024 10/04/2025 Active cholecalciferol 0.125 mg oral capsule (7 sources) [...] Do not use to face, armpits, groin., [facility]/pharmacy #[id number], 162, cm, 10/02/23 11:23:00 EDT, Height/Length Dosing, 76.7, kg, 10/02/23 11:23:00 EDT, Weight Dosing Start Date: 10/02/23 Status: Ordered Start: 02-10-2022 clobetasol pro pionate 0.05% top oint 1 bonifacio, Topical, BID, 45 gram, Refill(s) 0, Apply a thin film to affected area. Do not use to face, armpits, groin., [facility], 160, cm, 07/24/21 17:02:00 EDT, Height/Length Dosing, 71.6, kg, 07/24/21 17:02:00 EDT, Weight Dosing Start Date: 02/10/22 Status: Ordered Start: 01-29-2021 clobetasol pro pionate 0.05% top oint 1 bonifacio, Topical, BID, 45 gram, Refill(s) 1, [facility], 160, cm, 01/29/21 16:48:00 EDT, Height/Length Dosing, 82.2, kg, 01/29/21 16:48:00 EDT, Weight Dosing Start Date: 01/29/21 Status: Ordered cyclobenzaprine hydrochloride 10 mg oral tablet (7 sources) Muscle Relaxant Start: 10-17-2024 End: 10-27-2024 take 0.5 tablet by mouth three times daily as needed for muscle spasms cyclobenzaprine (Flexeril) 10 MG tablet Indications: Acute bilateral low back pain without sciatica Take 0.5 tablets (5 mg) by mouth 3 (three) times a day as needed for muscle spasms for up to 10 days 30 tablet 2 10/17/2024 Active Start: 02-19-2023 take 1 tablet by debra th three times daily as needed for muscle spasms cyclobenzaprine 10 mg Tab 10 mg = 1 tab(s), Oral, TID, PRN for spasm, # 30 tab(s), Refills(s) 1, Pharmacy: [facility]/pharmacy #[id number], 162, cm, 02/19/23 7:51:00 EDT, Height/Length Dosing, 68.7, kg, 02/19/23 7:51:00 EDT, Weight Dosing Start Date: 02/19/23 Status: Ordered estradiol 2 mg oral tablet (20 sources) Estrogen Start: 02-24-2024 End: 06-06-2025 estradiol (Estrace) 2 mg tablet Indications: Female infertility Insert 1 tablet (2 mg) into the vagina 2 times a day. 06/06/2024 06/06/2025 Active Start: 02-24-2024 End: 06-19-2025 [...] Refill(s) 6, Therapeutic tx; may refill early, [facility], 160, cm, 09/27/20 16:16:00 EDT, Height/Length Dosing, 80.8, kg, 09/27/20 16:16:00 EDT, Weight Dosing Start Date: 09/27/20 Status: Ordered famotidine 20 mg oral tablet (11 sources) Histamine-2 Receptor Antagonist Start: 10-04-2024 End: 11-03-2024 take 1 tablet by mouth once daily famotidine (Pepcid) 20 MG tablet Indications: Gastroesophageal Reflux Disease , Heartburn Take 1 tablet (20 mg) by mouth Daily 30 tablet 11 10/04/2024 Active Start: 01-29-2021 take 1 mg by mouth o nce daily at bedtime Pepcid 40 mg Tab mg tab(s), Oral, Once a day (at bedtime), Refills(s) 0 Start Date: 01/29/21 Status: Ordered Flonase 0.05 mg/inh nasal spray (1 source) Start: 09-30-2018 Flonase 0.05 mg/inh nasal spray 50 microgram, Nasal, Daily, Refill(s) 0 Start Date: 09/30/18 Status: Ordered hydrOXYzine pamoate 25 mg oral capsule (8 sources) Antihistamine Start: 10-11-2024 End: 10-21-2024 take 1 capsule by mouth every six hours hydrOXYzine pamoate (Vistaril) 25 MG capsule Indications: Pruritus Take 1 capsule (25 mg) by mouth every 6 (six) hours if needed for itching for up to 10 days 30 capsule 10/11/2024 Active oral tablet (1 source) Start: 09-27-2020 take 1 tablet by mouth once daily oral tablet 1 tab(s), Oral, Daily, 84 tab(s), Refill(s) 6, Therapeutic tx; may refill early, [facility], 160, cm, 09/27/20 16:16:00 EDT, Height/Length Dosing, 80.8, kg, 09/27/20 16:16:00 EDT, Weight Dosing Start Date: 09/27/20 Status: Ordered lidocaine 25 mg/ml / prilocaine 25 mg/ml topical cream (16 sources) Antiarrhythmic, Amide Local Anesthetic Start: 02-24-2024 End: 02-23-2025 lidocaine-priloca ine (Emla) 2.5-2.5 % cream Indications: Female infertility Apply topically once daily. Apply to treatment area 1 hour prior to injection. 30 g 2 05/03/2024 3:33 PM EST 02/24/2024 02/23/2025 Active Start: 02-24-2024 End: 02-23-2025 lidocaine-prilocaine (Emla) 2.5-2.5 % cream Apply topically Daily 02/24/2024 08/08/2024 Discontinued loratadine 10 mg oral tablet (1 source) Start: 01-29-2021 take 1 tablet by mouth once daily loratadine 10 mg Tab 10 mg = 1 tab(s), Oral, Daily, Refills(s) 0 Start Date: 01/29/21 Status: Ordered methylPREDNISolone (10 sources) Corticosteroid Start: 10-04-2024 methylPREDNISolone (Medrol Dospak) 4 MG tablets Indications: Pruritus of in second trimester ([facility]) Day 1: 6 tablets Day 2: 5 tablets Day 3: 4 tablets Day 4: 3 tablets Day 5: 2 tablets Day 6: 1 tablet 21 tablet 10/04/2024 Active Start: 10-04-2024 methylPREDNISo lone (Medrol Dospak) 4 MG tablets Indications: Pruritus of in second trimester Day 1: 6 tablets Day 2: 5 tablets Day 3: 4 tablets Day 4: 3 tablets Day 5: 2 tablets Day 6: 1 tablet 21 tablet 10/04/2024 Active orlistat 60 mg oral capsule (1 source) Intestinal Lipase Inhibitor Start: 07-24-2021 End: 01-20-2022 take 1 capsule by mouth three times daily aryan 60 mg oral capsule 60 mg, 1 cap(s), Oral, TID for 30 day(s), 90 cap(s), Refill(s) 5, within 1 hour of each main meal containing fat, [facility] 1986, 160, cm, 07/24/21 17:02:00 EDT, Height/Length [...] Status: Ordered MV-Min-Fe Fum-FA-DHA ( 1 PO) (17 sources) MV-Min-Fe Fum-FA-DHA ( 1 PO) Take 1 each by mouth Daily Active [id number] ic-omega3 29-1-400 mg combo pack,tablet and cap,DR (14 sources) [id number]- f olic-omega3 29-1-400 mg combo pack,tablet and cap,DR Take [...] Daily, # 90 tab(s), Refills(s) 3, Pharmacy: [facility]/pharmacy #[id number], 162, cm, 10/02/23 11:23:00 EDT, Height/Length Dosing, 76.7, kg, 10/02/23 11:23:00 EDT, Weight Dosing Start Date: 10/02/23 Status: Ordered Start: 08-27-2023 take 2 tablets by mo uth once daily Topamax 25 mg Tab 50 mg = 2 tab(s), Oral, Daily, # 180 tab(s), Refills(s) 0, Pharmacy: [facility]/pharmacy #[id number], 162, cm, 08/27/23 17:49:00 EDT, Height/Length [...] 4-7, # 90 tab(s), Refills(s) 1, Pharmacy: [facility]/pharmacy #[id number], 162, cm, 02/19/23 7:51:00 EDT, Height/Length [...] kit 03/01/2024 03/09/2024 Discontinued (Med List Cleanup) metFORMIN hydrochloride 500 mg oral tablet (5 [...] the evening. Take with meals. 01/14/2024 Discontinued permethrin 50 mg/ml topical cream (3 sources) Pyrethroid Start: 10-11-2024 End: 10-11-2024 permethrin (Elimite) 5 % cream Indications: Pruritus Apply topically 1 (one) time for 1 dose 60 g 10/11/2024 10/11/2024 syringe, disposable, (BD Safety-Cole with Luer-Cole) 3 mL syringe (1 source) Start: 03-01-2024 End: 03-09-2024 syringe, disposable, (BD Safety-Cole with Luer-Cole) 3 mL syringe Indications: Female infertility Use as directed to mix and administer Menopur 30 each 3 03/01/2024 03/09/2024 Discontinued (Med List Cleanup) Problems Active Problems Problem Classification Problem Date Documented Date Episodic/Chronic Administrative/socia l admission (20 sources) Patient encounter status; Translations: [Persons encountering [...] [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 Other inflammatory condition of skin (2 sources) Pruritus, unspecified; Translations: [Unspecified pruritic disorder] 10-11-2024 Episodic Other injuries and conditions due to external [...] 10-13-2019 Episodic Other and delivery including normal (16 sources) ; Translations: [Encounter for supervision of normal , unspecified, unspecified trimester] Onset: 10-07-2024 07-29-2024 Episodic Other skin disorders (6 sources) [...] [14 weeks gestation of ] 09-06-2024 Episodic Residual codes; unclassified (2 sources) Gestation period, 19 weeks; Translations: [19 weeks gestation of ] 10-11-2024 Episodic Residual codes; unclassified (2 sources) Gestation period, 20 weeks; Translations: [20 weeks gestation of ] 10-17-2024 Episodic Residual codes; unclassified (2 sources) Gestation period, 26 weeks; Translations: [26 weeks gestation of ] 11-08-2024 Episodic Screening and history of mental health and substance abuse codes (1 source) H/O: psychiatric disorder; Translations: [Personal history of other mental and behavioral disorders] Onset: 04-06-2024 Episodic Spondylosis; intervertebral disc disorders; other back problems (9 sources) Neck pain; Translations: [Cervicalgia] Onset: 02-19-2023 [...] vomiting, unspecified] Onset: 01-28-2024 01-28-2024 Episodic Other complications of (2 sources) with inconclusive viability, not applicable or unspecified; Translations: [ with inconclusive viability, not applicable or unspecified] Onset: 06-30-2024 Episodic Other female genital disorders (4 sources) [...] NEGATED: Highlighted row has been ruled out!Unclassified (19 sources) No known active problems 11-02-2023 Results Test Name Value Interpretation Reference Range Facility Urinalysis macro (dipstick) panel (U)on 11-09-2024 Bilirubin, UA Negative Negative - 4(70) +++ mg/dL [facility] Blood, UA Negative Negative - 50 Jose/mcL [facility] Clarity, UA Clear [facility] Color, UA Yellow [facility] Glucose, UA Negative Negative - 1999(110) ++++ mg/dL [facility] Interpretation and review of laboratory results Normal [facility] Ketones, UA Negative Negative - 160(16) ++++ mg/dL [facility] Leukocytes, UA Negative Negative - 500+++ Onel/mcL [facility] Nitrite, UA Negative Negative - Positive [facility] pH, UA 5.5 5 - 9 [facility] Protein, UA Negative Negative - 1999(20) ++++ mg/dL [facility] Spec Grav, UA 1.025 1 - 1.03 [facility] Urobilinogen, UA 1.0 0.2 - 12 mg/dL [facility] Urinalysis macro (dipstick) panel (U)on 10-17-2024 Bilirubin, UA Negative Negative - 4(70) +++ mg/dL [facility] Blood, UA Negative Negative - 50 Jose/mcL [facility] Clarity, UA Clear [facility] Color, UA Yellow [facility] Glucose, UA Negative Negative - 1999(110) ++++ mg/dL [facility] Interpretation and review of laboratory results Abnormal [facility] Ketones, UA Negative Negative - 160(16) ++++ mg/dL [facility] Leukocytes, UA Positive Negative - 500+++ Onel/mcL [facility] Comment on above: small Nitrite, UA Negative Negative - Positive [facility] pH, UA 7 5 - 9 [facility] Protein, UA Negative Negative - 1999(20) ++++ mg/dL [facility] Spec Grav, UA 1.015 1 - 1.03 [facility] Urobilinogen, UA 0.2 0.2 - 12 mg/dL [facility] ALL CBC WITH AUTO DIFFon BASOPHILS ABSOLUTE AUTO 0 N [facility] Basophils/100 WBC (Bld) 0.2 % 0.2 - 2.0 % [facility] Eosinophils/100 WBC (Bld) 3.2 % 0.9 - 7.0 % [facility] Erythrocyte distribution width (RBC) [Ratio] 12.5 % 11.0 - 15.0 % [facility] Hematocrit (Bld) [Volume fraction] 37.9 % 36.0 - 48.0 % [facility] Hemoglobin (Bld) [Mass/Vol] 13.2 g/dL 12.0 - 16.0 g/dL [facility] IMMATURE GRANULOCYTES ABS AUTO 0.14 High [facility] Immature granulocytes/100 WBC (Bld) 1.5 % High 0.0 - 0.5 % [facility] Interpretation and review of laboratory results Abnormal [facility] LYMPHOCYTES ABSOLUTE AUTO 2 [facility] Lymphocytes/100 WBC (Bld) 20.8 % 20.5 - 60. 0 % [facility] MCH (RBC) [Entitic mass] 30.9 pg 26. 7 - 34.0 pg [facility] MCHC (RBC) [Mass/Vol] 34.8 g/dL 29.9 - 35.2 g/dL [facility] MCV (RBC) [Entitic vol] 88.8 fL 81.0 - 99.0 fL [facility] MONOCYTES ABSOLUTE AUTO 0.7 N [facility] Monocytes/100 WBC (Bld) 7.2 % 1.7 - 12.0 % [facility] NEUTROPHILS ABSOLUTE AUTO 6.3 [facility] Neutrophils/100 WBC (Bld) 67.1 % 43.0 - 75. 0 % [facility] Platelet mean volume (Bld) [Entitic vol] 11.1 fL 9.5 - 13.5 fL [facility] TBH EO # 0.3 [facility]H PLT 153 [facility] RBC 4.27 [facility] TB WBC 9.4 [facility] US OB DETAIL ANATOMYon 10-07-2024 US OB DETAIL ANATOMY Interpreted by: Ad Ovalle Indication ======== Screening [...] and chest anatomy, abdominal organ specific anatomy, number/length/archi tecture of limbs and detailed evaluation of the [...] EFW (oz) 12 oz EFW by: Hadlock ([id number]) Extended Parts Identification Technician 6.0 mm CM 4.4 mm 36% Nicolaides [...] Normal LVOT view: Normal 3-vessel view: Normal 1-fqfsdz-cilekjb view: Normal Heart / Thorax Situs: situs [...] Rt toes: Normal Lt upper leg: Normal L (more content not included)... Normal [facility] US for pregnancyon Interpreted by: Ad Ovalle Indication ======== Screening [...] and chest anatomy, abdominal organ specific anatomy, number/length/archi tecture of limbs and detailed evaluation of the [...] EFW (oz) 12 oz EFW by: Hadlock ([id number]) Extended Parts Identification Technician 6.0 mm CM 4.4 mm 36% Nicolaides [...] Normal LVOT view: Normal 3-vessel view: Normal 3-vzzxti-mdsldqi view: Normal Heart / Thorax Situs: situs [...] Rt foot: Normal Rt toes: Normal Lt (more content not included)... VIEWPOINT Ad Ovalle MD - 10/07/2024 Interpreted by: Ad Ovalle Indication ======== Screening for Abnormalities, Conceived via [facility] [employer] [employer] History ====== General History Traqli253 cm Height (ft)5 ft Height (in)3 in Previous Outcomes Gravida1 Para0 Maternal Assessment Swcvzy660 cm Height (ft)5 ft Height (in)3 in Kzsigx63 kg Weight (lb)165 lb Weight gain0 kg [...] and chest anatomy, abdominal organ specific anatomy, number/length/archi tecture of limbs and detailed evaluation of the [...] 87% Hadlock Femur32.4 mm20w 1d 73% Hadlock Fyjgpzj08.4 mm 45% Chitty HC / AC1.05 2% Hadlock EBI025 g20w 1d 91% Hadlock EFW (lb)0 lb EFW (oz)12 oz EFW by:Hadlock ([id number]) Extended Vp6.0 mm CM4.4 mm 36% Nicolaides Nasal bone4.7 mm Head / Face / Neck Cephalic index0.74 10% Nicolaides Nasal bone:present Extremities / Bony Struc FL / BPD0.74 92% Hadlock FL / HC0.20 96% Hadlock FL / AC0.21 35% Hadlock Other Structures [id number] bpm Anatomy Cranium:Normal Lateral ventricles:Normal Choroid plexus:Normal [...] view:Normal RVOT view:Normal LVOT view:Normal 3-vessel view:Normal 0-pycffp-uzzaonf view:Normal Heart / Thorax Situs:situs solitus (normal) Aortic arch view:Normal Bicaval view:Normal Cardiac position:levocardia (normal) Cardiac axis:Normal Cardiac size:normal (approx. 1/3 of thoracic area) Cardiac proportions:proport ioned (normal) Cardiac rhythm:regular (normal) Rt lung:Normal Lt lung:Normal Rt diaphragm:Normal Lt diaphragm:Normal Cord insertion:Normal Stomach:Normal Kidneys:Normal Bladder:Normal Genitals:Normal Abdomen Abdom. wall:Normal Stomach:Stomach size and situs appear normal, Stomach size and situs appear normal Rt kidney:Normal Lt kidney:Normal Small bowel:Normal Large bowel:Normal Cervical spine:Normal Thoracic spine:Normal Lumbar spine:Normal Sacral spine:Normal Arms:Normal Hands:normal Legs:Normal Feet:normal Rt upper arm:Normal Rt forearm:Normal Rt hand:Normal Rt fingers:Normal Lt upper arm:Normal Lt forearm:Normal Lt hand:Normal Lt fingers:Normal Rt upper leg:Normal Rt lower leg:Normal Rt foot:Normal Rt toes:Normal Lt upper leg:Normal Lt lower leg:Normal (more content not included)... [facility] Work Phone: Source Facility: [facility] Interpreted by: Ad Ovalle Indication ======== Screening [...] and chest anatomy, abdominal organ specific anatomy, number/length/archi tecture of limbs and detailed evaluation of the [...] EFW (oz) 12 oz EFW by: Hadlock ([id number]) Extended Parts Identification Technician 6.0 mm CM 4.4 mm 36% Nicolaides [...] Normal LVOT view: Normal 3-vessel view: Normal 8-dwnjnb-tcmsfrj view: Normal Heart / Thorax Situs: situs [...] Normal Rt upper leg: Normal Rt lower (more content not included)... Radiology, Radiologist, MD - 10/07/2024 Source Facility: [facility] Interpreted by: Ad Ovalle Indication ======== Screening [...] and chest anatomy, abdominal organ specific anatomy, number/length/archi tecture of limbs and detailed evaluation of the [...] EFW (oz) 12 oz EFW by: Hadlock ([id number]) Extended Parts Identification Technician 6.0 mm CM 4.4 mm 36% Nicolaides [...] Normal LVOT view: Normal 3-vessel view: Normal 5-hbmsup-rxrwane view: Normal Heart / Thorax Situs: situs [...] fingers: Normal Lt upper arm: Normal Lt forear (more content not included)... [facility] Radiology Study observation (narrative) [facility] Work Phone: Radiology Study observation (narrative) [facility] US for pregnancyOrdered By: Ad Ovalle on 10-07-2024 [facility] Work Phone: US for pregnancyOrdered By: Radiologist Radiology on 10-07-2024 [facility] Work Phone: RECURRENT VAGINITIS (HTRX)on 09-07-2024 ATOPOBIUM VAGINAE 0 [facility] ATOPOBIUM VAGINAE Not [facility],3 (BACTERIAL VAGINOSIS ASSOCIATED BACTERIA 2, 3); MOBILUNCUS SPP 0 [facility] BVAB 2,3 (BACTERIAL VAGINOSIS ASSOCIATED BACTERIA 2, 3); MOBILUNCUS SPP Not detected [facility] PRESTON ALBICANS, PARAPSILOSIS, TROPICALIS 0 [facility] PRESTON ALBICANS, PARAPSILOSIS, TROPICALIS Not detected [facility] PRESTON GLABRATA 0 [facility] PRESTON GLABRATA Not detected [facility] PRESTON KRUSEI 0 [facility] PRESTON KRUSEI Not [facility] CHLAMYDIA TRACHOMATIS 0 [facility] CHLAMYDIA TRACHOMATIS Not detected N [facility] GARDNERELLA VAGINALIS 0 [facility] GARDNERELLA VAGINALIS Not detected N [facility] MEGASPHAERA (TYPES 1, 2) 0 [facility] MEGASPHAERA (TYPES 1, 2) Not detected [facility] MYCOPLASMA GENITALIUM 0 [facility] S [facility] MYCOPLASMA GENITALIUM Not detected N [facility] NEISSERIA GONORRHOEAE 0 [facility] NEISSERIA GONORRHOEAE Not detected N [facility] TRICHOMONAS VAGINALIS 0 [facility] TRICHOMONAS VAGINALIS Not detected N [facility] Urinalysis macro (dipstick) panel (U)on 09-06-2024 Bilirubin, UA Negative Negative - 4(70) +++ mg/dL [facility] Blood, UA Negative Negative - 50 Jose/mcL [facility] Clarity, UA Clear [facility] Color, UA Yellow [facility] Glucose, UA Negative Negative - 1999(110) ++++ mg/dL [facility] Interpretation and review of laboratory results Abnormal [facility] Ketones, UA Negative Negative - 160(16) ++++ mg/dL [facility] Leukocytes, UA Positive Negative - 500+++ Onel/mcL [facility] Comment on above: small Nitrite, UA Negative Negative - Positive [facility] pH, UA 6 5 - 9 [facility] Protein, UA Negative Negative - 1999(20) ++++ mg/dL [facility] Spec Grav, UA 1.03 1 - 1.03 [facility] Urobilinogen, UA 0.2 0.2 - 12 mg/dL [facility] ALL CBC WITH AUTO DIFFon BASOPHILS ABSOLUTE AUTO 0 N [facility] Basophils/100 WBC (Bld) 0.2 % 0.2 - 2.0 % [facility] Eosinophils/100 WBC (Bld) 2.9 % 0.9 - 7.0 % [facility] Erythrocyte distribution width (RBC) [Ratio] 12 % 11.0 - 15.0 % [facility] Hematocrit (Bld) [Volume fraction] 39.3 % 36.0 - 48.0 % [facility] Hemoglobin (Bld) [Mass/Vol] 13.6 g/dL 12.0 - 16.0 g/dL [facility] IMMATURE GRANULOCYTES ABS AUTO 0.06 High [facility] Immature granulocytes/100 WBC (Bld) 0.7 % High 0.0 - 0.5 % [facility] Interpretation and review of laboratory results Abnormal [facility] LYMPHOCYTES ABSOLUTE AUTO 2.1 [facility] Lymphocytes/100 WBC (Bld) 25.4 % 20.5 - 60. 0 % [facility] MCH (RBC) [Entitic mass] 30.2 pg 26. 7 - 34.0 pg [facility] MCHC (RBC) [Mass/Vol] 34.6 g/dL 29.9 - 35.2 g/dL [facility] MCV (RBC) [Entitic vol] 87.3 fL 81.0 - 99.0 fL [facility] MONOCYTES ABSOLUTE AUTO 0.5 N [facility] Monocytes/100 WBC (Bld) 5.8 % 1.7 - 12.0 % [facility] NEUTROPHILS ABSOLUTE AUTO 5.5 [facility] Neutrophils/100 WBC (Bld) 65 % 43.0 - 75. 0 % [facility] Platelet mean volume (Bld) [Entitic vol] 10.9 fL 9.5 - 13.5 fL [facility] TBH EO # 0.2 [facility]H PLT 151 [facility] RBC 4.5 [facility] WBC 8.4 [facility] Urinalysis macro (dipstick) panel (U)on 08-08-2024 Bilirubin, UA Negative Negative - 4(70) +++ mg/dL [facility] Blood, UA Negative Negative - 50 Jose/mcL [facility] Clarity, UA Clear [facility] Color, UA Yellow [facility] Glucose, UA Negative Negative - 1999(110) ++++ mg/dL [facility] Interpretation and review of laboratory results Abnormal [facility] Ketones, UA Negative Negative - 160(16) ++++ mg/dL [facility] Leukocytes, UA Positive Negative - 500+++ Onel/mcL [facility] Comment on above: small Nitrite, UA Negative Negative - Positive [facility] pH, UA 6 5 - 9 [facility] Protein, UA Negative Negative - 1999(20) ++++ mg/dL [facility] Spec Grav, UA 1.025 1 - 1.03 [facility] Urobilinogen, UA 0.2 0.2 - 12 mg/dL [facility] HCG ( test) Ql (U)o n 07-29-2024 Interpretation and review of laboratory results Abnormal [facility] Preg Test, Ur Positive Negative [facility] Urinalysis macro (dipstick) panel (U)on 07-29-2024 Bilirubin, UA Negative Negative - 4(70) +++ mg/dL [facility] Blood, UA Positive Negative - 50 Jose/mcL [facility] Comment on above: trace Clarity, UA Clear [facility] Color, UA Yellow [facility] Glucose, UA Negative Negative - 1999(110) ++++ mg/dL [facility] Interpretation and review of laboratory results Abnormal [facility] Ketones, UA Negative Negative - 160(16) ++++ mg/dL [facility] Leukocytes, UA Positive Negative - 500+++ Onel/mcL [facility] Comment on above: small Nitrite, UA Negative Negative - Positive [facility] pH, UA 5.5 5 - 9 [facility] Protein, UA Negative Negative - 1999(20) ++++ mg/dL [facility] Spec Grav, UA 1.03 1 - 1.03 [facility] Urobilinogen, UA 0.2 0.2 - 12 mg/dL [facility] PROGESTERONEon 07-12-2024 PROGESTERONE 53.5 ng/mL Normal [facility] Comment on above: Result Comment: Refe rence Ranges Female Follicular Phase < 1.0 Luteal Phase 2.6-21.5 Post menopausal < 0.5 1st Trimester 4.1-34.0 2nd Trimester 24.0-76.0 3rd Trimester 52.0-302.0 Performed By: #### 7 45 #### [facility] [address] [facility], [address] [place] [address] Prototype Model Maker: Alexey Boogie MD US OB TRANSVAGINALon 025 US OB TRANSVAGINAL Interpreted by: Juan Chavarria Indication [...] transvaginal evaluation for early dating. View: Sufficient [facility] Choriogonadotropin.beta subu niton 06-30-2024 HCG.beta subunit Qn 6575 m[IU]/mL High <5 [facility] Comment on above: Order Comment: Total HCG measurement is performed using the [employer] Access Immunoassay which detects intact HCG and free beta HCG subunit. This test is not indicated for use as a tumor marker. HCG testing is performed using a different test methodology at [facility] than other [facility]. Direct result [...] By: #### 2 1198-7 #### JOSEPH ESQUIVEL ([id number]) [facility] ([facility]) [address] [place] [address] Choriogonadotropin.beta subu niton 06-23-2024 HCG.beta subunit Qn 330 m[IU]/mL High <5 [facility] Comment on above: Order Comment: Total HCG measurement is performed using the [employer] [place] Access Immunoassay which detects intact HCG and free beta HCG subunit. This test is not indicated for use as a tumor marker. HCG testing is performed using a different test methodology at [facility] than other [facility]. Direct result [...] By: #### 2 1198-7 #### JOSEPH ESQUIVEL ([id number]) [facility] ([facility]) [address] [place] [address] Estradiolon 06-23-2024 E2 [Mass/Vol] 378 pg/mL Normal [facility] Comment on above: Order Comment: REF V ALUES FOLLICULAR PHASE 20-144 MID CYCLE 64-357 LUTEAL PHASE 56-214 POSTMENOPAUSE < 32 PREPUBERTY < 20 FEMALE 10-18Y 8-110 MALE 10-18Y < 20 ADULT MALE < 40 Estradiol measurement is performed using the [employer] Access Estradiol Immunoassay. Estradiol testing is performed using a different test methodology at [facility] than other [facility]. Direct result comparison should only be made within the same method. Performed By: #### 2 243-4 #### JOSEPH ESQUIVEL ([id number]) [facility] ([facility]) [address] [place], [place] [id number] Progesteroneon 06-23-2024 Progesterone [Mass/Vol] 42.6 ng/mL Normal [facility] Comment on above: Order Comment: REF V ALUES Male <0.2-0.8 Follicular Phase <0.2-1.5 Luteal Phase 7.4-15.4 Post Menopausal <0.2-0.2 1ST Trimester 12.0-84.0 2ND Trimester 10.2-58.8 3RD Trimester 46.5-160 Progesterone is performed using the [employer] Access Immunoassay. Progesterone testing is performed using a different test methodology at [facility] than other [facility]. Direct result comparison should only be made within the same method. Performed By: #### 2 839-9 #### JOSEPH ESQUIVEL ([id number]) [facility] ([facility]) [address] [place], [place] [id number] No Panel Informationon 06-13 Juan Chavarria MD [...] Preop diagnosis: Infertility Post op diagnosis: Same Computer Network Specialist: none Depth: 7 cm Curve: anterior Distance [...] Juan Chavarria 06/13/24 11:24 AM [facility] Work Phone: Progesteroneon 06-13-2024 Progesterone [Mass/Vol] 45.0 ng/mL Normal [facility] Comment on above: Order Comment: REF V ALUES Male <0.2-0.8 Follicular Phase <0.2-1.5 Luteal Phase 7.4-15.4 Post Menopausal <0.2-0.2 1ST Trimester 12.0-84.0 2ND Trimester 10.2-58.8 3RD Trimester 46.5-160 Progesterone is performed using the [employer] Access Immunoassay. Progesterone testing is performed using a different test methodology at [facility] than other [facility]. Direct result comparison should only be made within the same method. Performed By: #### 2 839-9 #### ORA MARQUES ([id number]) [facility] ([facility] [address] [place] [address] Estradiolon 06-07-2024 E2 [Mass/Vol] 2870 pg/mL Normal [facility] Comment on above: Order Comment: REF V ALUES FOLLICULAR PHASE 20-144 MID CYCLE 64-357 LUTEAL PHASE 56-214 POSTMENOPAUSE < 32 PREPUBERTY < 20 FEMALE 10-18Y 8-110 MALE 10-18Y < 20 ADULT MALE < 40 Performed By: #### 2 243-4 #### JOSEPH ESQUIVEL ([id number]) [facility] ([facility]) [address] [place] [address] Progesteroneon 06-07-2024 Progesterone [Mass/Vol] 0.4 ng/mL Normal [facility] Comment on above: Order Comment: REF V ALUES Male <0.2-0.8 Follicular Phase <0.2-1.5 Luteal Phase 7.4-15.4 Post Menopausal <0.2-0.2 1ST Trimester 12.0-84.0 2ND Trimester 10.2-58.8 3RD Trimester 46.5-160 Progesterone is performed using the [employer] Access Immunoassay. Progesterone testing is performed using a different test methodology at [facility] than other [facility]. Direct result [...] results near 1.0 ng/mL. Contact laboratory at [phone] if alternative testing is needed. Performed By: #### 2 839-9 #### JOSEPH ESQUIVEL ([id number]) [facility] ([facility]) [address] [place] [address] [facility] US PELVIS LIMITED FOLLIC LES-FOLLICLE STUDIES PERFORMEDon 06-07-2024 [facility] US PELVIS LIMITED FOLLICLES-FOLLICLE STUDIES PERFORMED Follicle scan performed with follicle measurements in report. and Trilaminar appearance to the endometrium is noted. Normal [facility] Estradiolon 06-06-2024 E2 [Mass/Vol] 558 pg/mL Normal [facility] Comment on above: Order Comment: REF V ALUES FOLLICULAR PHASE 20-144 MID CYCLE 64-357 LUTEAL PHASE 56-214 POSTMENOPAUSE < 32 PREPUBERTY < 20 FEMALE 10-18Y 8-110 MALE 10-18Y < 20 ADULT MALE < 40 Performed By: #### 2 243-4 #### JOSEPH ESQUIVEL ([id number]) [facility] ([facility]) [address] [place] [address] Follicle Diameter USon 06-06 Trilaminar appearance to the endometrium is noted. RIS SECTRA ONLY [facility] Work Phone: Radiology Study observation (narrative) [facility] Work Phone: Progesteroneon 06-06-2024 Progesterone [Mass/Vol] 0.8 ng/mL Normal [facility] Comment on above: Order Comment: REF V ALUES Male <0.2-0.8 Follicular Phase <0.2-1.5 Luteal Phase 7.4-15.4 Post Menopausal <0.2-0.2 1ST Trimester 12.0-84.0 2ND Trimester 10.2-58.8 3RD Trimester 46.5-160 Progesterone is performed using the [employer] Access Immunoassay. Progesterone testing is performed using a different test methodology at [facility] than other [facility]. Direct result [...] results near 1.0 ng/mL. Contact laboratory at [phone] if alternative testing is needed. Performed By: #### 2 839-9 #### JOSEPH ESQUIVEL ([id number]) [facility] ([facility]) [address] [place] [address] [facility] US ENDOMETRIAL LINING CH ECKon 06-06-2024 [facility] US ENDOMETRIAL LINING CHECK Trilaminar appearance to the endometrium is noted. Normal [facility] No Panel Informationon 03-22 Juan Chavarria MD 03/22/2024 9:44 AM Egg Retrieval Date/Time: 03/22/2024 9:39 AM Performed by: Juan Chavarria MD Authorized by: Donya Abernathy, SALES FLOOR MANAGER-MITER GRINDER OPERATOR Consent: Consent obtained: Verbal and written Consent [...] diagnosis: Female infertility Post op diagnosis: Same Computer Network Specialist: Dr. Warren IV Fluids: 600 cc EBL: 5 cc UOP: Not recorded Specimen: Oocytes Complications: None Number of Oocytes right ovary: 16 Ovarian access (right): Easy Number of Oocytes left ovary: 9 Ovarian access (left): Easy Endometrial thickness: n/a Needle type: Single Additional notes: [facility] RIS [facility] Work Phone: Lutropinon 03-21-2024 Lutropin Qn 29.3 IU/L Normal [facility] Comment on above: Result Comment: LH R eference Values Follicular Phase 1.5-10.0 Mid-Cycle 13.0-72.0 Luteal Phase 0.5-13.0 Menopause 15.0-65.0 Pre-puberty 0- 3.0 Children 0- 6.0 Adult Male 1.0- 9.0 Luteinizing Hormone is performed using the [employer] Access Immunoassay. LH testing is performed using a different test methodology at [facility] than other [facility]. Direct result comparison should only be made within the same method. Performed By: #### 4 7236-5 #### SHAI Pickard ([id number]) [facility] [address] [place] [address] Progesteroneon 03-21-2024 Progesterone [Mass/Vol] 4.5 ng/mL Normal [facility] Comment on above: Order Comment: HIV [...] By: #### 5 6888-1 #### SHAI Pickard ([id number]) [facility] [address] [place] [address] E2 [Mass/Vol]Ordered By: Shira Rich on 03-20-2024 REF VALUES FOLLICULAR PHASE 20-144 MID CYCLE 64-357 LUTEAL PHASE 56-214 POSTMENOPAUSE < 32 PREPUBERTY < 20 FEMALE 10-18Y 8-110 MALE 10-18Y < 20 ADULT MALE < 40 Estradiol measurement is performed using the [employer] Access Estradiol Immunoassay. Estradiol testing is performed using a different test methodology at [facility] than other [facility]. Direct result comparison should only be made within the same method. [facility] EstradiolOrdered By: Bela Rich on 03-20-2024 E2 [Mass/Vol] 4909 pg/mL [facility] Estradiolon 03-20-2024 E2 [Mass/Vol] 4909 pg/mL Normal [facility] Comment on above: Order Comment: HIV [...] By: #### 5 6888-1 #### SHAI Pickard ([id number]) [facility] [address] [place] [address] Follicle Diameter USon 03-20 Follicle scan performed with follicle measurements in report. RIS SECTRA ONLY [facility] Work Phone: Radiology Study observation (narrative) [facility] Work Phone: Progesteroneon 03-20-2024 Progesterone [Mass/Vol] 1.3 ng/mL U [facility] Progesterone [Mass/Vol] 1.3 ng/mL Normal U [facility] Comment on above: Order Comment: HIV [...] By: #### 5 6888-1 #### SHAI Pickard ([id number]) [facility] [address] [place] [address] Progesterone [Mass/Vol]on REF VALUES Male <0.2-0.8 Follicular Phase <0.2-1.5 Luteal Phase 7.4-15.4 Post Menopausal <0.2-0.2 1ST Trimester 12.0-84.0 2ND Trimester 10.2-58.8 3RD Trimester 46.5-160 Progesterone is performed using the [employer] Access Immunoassay. Progesterone testing is performed using a different test methodology at [facility] than other [facility]. Direct result comparison should only be made within the same method. [facility] US PELVIS LIMITED FOLLIC LES-FOLLICLE STUDIES PERFORMEDon 03-20-2024 [facility] US PELVIS LIMITED FOLLICLES-FOLLICLE STUDIES PERFORMED Follicle scan performed with follicle measurements in report. Normal [facility] Estradiolon 03-19-2024 E2 [Mass/Vol] 3760 pg/mL Normal [facility] Comment on above: Order Comment: HIV [...] By: #### 5 6888-1 #### SHAI Pickard ([id number]) [facility]) [address] [place] [address] Follicle Diameter USon 03-19 Follicle scan performed with follicle measurements in report. RIS SECTRA ONLY [facility] Work Phone: Radiology Study observation (narrative) [facility] Work Phone: Progesteroneon 03-19-2024 Progesterone [Mass/Vol] 1.1 ng/mL Normal U [facility] Comment on above: Order Comment: HIV [...] By: #### 5 6888-1 #### SHAI Pickard ([id number]) [facility] [address] [place] [address] [facility] US PELVIS LIMITED FOLLIC LES-FOLLICLE STUDIES PERFORMEDon 03-19-2024 [facility] US PELVIS LIMITED FOLLICLES-FOLLICLE STUDIES PERFORMED Follicle scan performed with follicle measurements in report. Normal [facility] E2 [Mass/Vol]on 03-17-2024 REF VALUES FOLLICULAR PHASE 20-144 MID CYCLE 64-357 LUTEAL PHASE 56-214 POSTMENOPAUSE < 32 PREPUBERTY < 20 FEMALE 10-18Y 8-110 MALE 10-18Y < 20 ADULT MALE < 40 Estradiol measurement is performed using the [employer] Access Estradiol Immunoassay. Estradiol testing is performed using a different test methodology at [facility] than other [facility]. Direct result comparison should only be made within the same method. [facility] Estradiolon 03-17-2024 E2 [Mass/Vol] 1462 pg/mL [facility] E2 [Mass/Vol] 1462 pg/mL Normal [facility] Comment on above: Order Comment: HIV [...] By: #### 5 6888-1 #### SHAI Pickard ([id number]) [facility] [address] [place] [address] Follicle Diameter USon 03-17 Follicle scan performed with follicle measurements in report. Trilaminar appearance to the endometrium is noted. Physiologic free fluid is noted in the cul de sac. Notably retroverted uterus. Two small complex ovarian cysts noted, one on the left and one on the right. RIS SECTRA ONLY Radiology Study observation (narrative) [facility] Work Phone: Follicle Diameter USOrdered By: Leigh Ann Tuttle on 03-17-2024 [facility] Work Phone: Progesteroneon 03-17-2024 Progesterone [Mass/Vol] 0.6 ng/mL Normal [facility] Comment on above: Order Comment: HIV A g/Ab screen is performed using the [employer] HIV Ag/Ab Combo assay which detects the presence of HIV p24 antigen as well as antibodies to HIV-1 (Group M and O) and HIV-2. No laboratory evidence of HIV infection. If acute HIV infection is suspected, consider testing for HIV RNA by PCR (viral load). Performed By: #### 5 6888-1 #### SHAI Pickard ([id number]) [facility] [address] [place] [address] [facility] PELVIS LIMITED FOLLIC LES-FOLLICLE STUDIES PERFORMEDon 03-17-2024 [facility] US PELVIS LIMITED FOLLICLES-FOLLICLE STUDIES PERFORMED Follicle scan performed with follicle measurements in report. Trilaminar appearance to the endometrium is noted. Physiologic free fluid is noted in the cul de sac. Notably retroverted uterus. Two small complex ovarian cysts noted, one on the left and one on the right. Normal [facility] E2 [Mass/Vol]on 03-15-2024 REF VALUES FOLLICULAR PHASE 20-144 MID CYCLE 64-357 LUTEAL PHASE 56-214 POSTMENOPAUSE < 32 PREPUBERTY < 20 FEMALE 10-18Y 8-110 MALE 10-18Y < 20 ADULT MALE < 40 Estradiol measurement is performed using the [employer] Access Estradiol Immunoassay. Estradiol testing is performed using a different test methodology at [facility] than other [facility]. Direct result comparison should only be made within the same method. [facility] Estradiolon 03-15-2024 E2 [Mass/Vol] 721 pg/mL [facility] E2 [Mass/Vol] 721 pg/mL Normal [facility] Comment on above: Order Comment: REF V ALUESFOLLICULAR PHASE 20-144MID CYCLE 64-357LUTEAL PHASE 56-214POSTMENOPAUSE < 32PREPUBERTY < 20FEMALE 10-18Y 8-110MALE 10-18Y < 20ADULT MALE < 40Estradiol measurement is performed using the [employer] Access Estradiol Immunoassay. Estradiol testing is performed using a different test methodology at [facility] than other [facility]. Direct resultcomparison should only be made within the same method. Performed By: #### 1 6128-1 #### SHAI Pickard ([id number]) [facility] [address] [place] [address] Follicle Diameter USon 03-15 Follicle scan performed with follicle measurements in report., Trilaminar appearance to the endometrium is noted., and Free fluid is noted in the cul de sac. RIS SECTRA ONLY [facility] Work Phone: Radiology Study observation (narrative) [facility] Work Phone: [facility] US PELVIS LIMITED FOLLIC LES-FOLLICLE STUDIES PERFORMEDon 03-15-2024 [facility] US PELVIS LIMITED FOLLICLES-FOLLICLE STUDIES PERFORMED Follicle scan performed with follicle measurements in report., Trilaminar appearance to the endometrium is noted., and Free fluid is noted in the cul de sac. Normal [facility] E2 [Mass/Vol]on 03-09-2024 REF VALUES FOLLICULAR PHASE 20-144 MID CYCLE 64-357 LUTEAL PHASE 56-214 POSTMENOPAUSE < 32 PREPUBERTY < 20 FEMALE 10-18Y 8-110 MALE 10-18Y < 20 ADULT MALE < 40 Estradiol measurement is performed using the [employer] [place] Access Estradiol Immunoassay. Estradiol testing is performed using a different test methodology at [facility] than other [facility]. Direct result comparison should only be made within the same method. [facility] Estradiolon 03-09-2024 E2 [Mass/Vol] pg/mL pg/mL [facility] E2 [Mass/Vol] pg/mL Normal [facility] Comment on above: Order Comment: REF V ALUESFOLLICULAR PHASE 20-144MID CYCLE 64-357LUTEAL PHASE 56-214POSTMENOPAUSE < 32PREPUBERTY < 20FEMALE 10-18Y 8-110MALE 10-18Y < 20ADULT MALE < 40Estradiol measurement is performed using the [employer] [place] Access Estradiol Immunoassay. Estradiol testing is performed using a different test methodology at [facility] than other [facility]. Direct resultcomparison should only be made within the same method. Performed By: #### 1 6128-1 #### SHAI Pickard ([id number]) [facility] [address] [place] [address] Follicle Diameter USon 03-09 Follicle scan performed with follicle measurements in report., Trilaminar appearance to the endometrium is noted., and Free fluid is noted in the cul de sac. RIS SECTRA ONLY Radiology Study observation (narrative) [facility] Work Phone: Follicle Diameter USOrdered By: Alicia Morgan on 03-09-2024 [facility] Work Phone: Hematocrit Auto (Bld) [Volum e fraction]on 03-09-2024 Hematocrit (Bld) [Volume fraction] 43.2 % 36.0 - 46.0 % [facility] Interpretation and review of laboratory results Normal [facility] Hematocrit (Bld) [Volume fraction] 43.2 % Normal 36.0-46.0 [facility] Comment on above: Performed By: #### 1 6128-1 #### SHAI Pickard ([id number]) [facility] [address] [place] [address] [facility] PELVIS LIMITED FOLLIC LES-FOLLICLE STUDIES PERFORMEDon 03-09-2024 [facility] PELVIS LIMITED FOLLICLES-FOLLICLE STUDIES PERFORMED Follicle scan performed with follicle measurements in report., Trilaminar appearance to the endometrium is noted., and Free fluid is noted in the cul de sac. [facility] No Panel Informationon 02-22 Juan Chavarria MD [...] diagnosis: Female infertility Post op diagnosis: Same Computer Network Specialist: none IV Fluids: 500 cc EBL: 5 cc UOP: Not recorded Specimen: Oocytes Complications: None Number of Oocytes right ovary: 17 Ovarian acc ss (right): Easy Number of Oocytes left ovary: 13 Ovarian access (left): Easy Endometrial thickness: n/a Needle type: Single Additional notes: [facility] Work Phone: Lutropinon 02-22-2024 Lutropin Qn 35.3 IU/L [facility] Comment on above: Result Comment: LH R eference Values Follicular Phase 1.5-10.0 Mid-Cycle 13.0-72.0 Luteal Phase 0.5-13.0 Menopause 15.0-65.0 Pre-puberty 0- 3.0 Children 0- 6.0 Adult Male 1.0- 9.0 Luteinizing Hormone is performed using the [employer] Access Immunoassay. LH testing is performed using a different test methodology at [facility] than other [facility]. Direct result comparison should only be made within the same method. Performed By: #### 1 6128-1 #### SHAI Pickard ([id number]) [facility] [address] [place] [address] Progesteroneon 02-22-2024 Progesterone [Mass/Vol] 5.0 ng/mL Normal U [facility] Comment on above: Order Comment: REF V ALUESMale <0.2-0.8Follicular Phase <0.2-1.5Luteal Phase 7.4-15.4Post Menopausal <0.2-0.21ST Trimester 12.0-84.02ND Trimester 10.2-58.83RD Trimester 46.5-160Progesterone is performed using the [employer] Access Immunoassay.Progesterone testing is performed using a different test methodology at [facility] than other [facility]. Direct result comparison should only be made within the same method. Performed By: #### 1 6128-1 #### SHAI Pickard ([id number]) [facility]) [address] [place] [address] E2 [Mass/Vol]Ordered By: Christi Infante on 02-21-2024 REF VALUES FOLLICULAR PHASE 20-144 MID CYCLE 64-357 LUTEAL PHASE 56-214 POSTMENOPAUSE < 32 PREPUBERTY < 20 FEMALE 10-18Y 8-110 MALE 10-18Y < 20 ADULT MALE < 40 Estradiol measurement is performed using the [employer] Access Estradiol Immunoassay. Estradiol testing is performed using a different test methodology at [facility] than other [facility]. Direct result comparison should only be made within the same method. [facility] EstradiolOrdered By: Janet Ritchie on 02-21-2024 E2 [Mass/Vol] 5153 pg/mL [facility] Estradiolon 02-21-2024 E2 [Mass/Vol] 5153 pg/mL Normal [facility] Comment on above: Order Comment: REF V ALUESFOLLICULAR PHASE 20-144MID CYCLE 64-357LUTEAL PHASE 56-214POSTMENOPAUSE < 32PREPUBERTY < 20FEMALE 10-18Y 8-110MALE 10-18Y < 20ADULT MALE < 40Estradiol measurement is performed using the [employer] [place] Access Estradiol Immunoassay. Estradiol testing is performed using a different test methodology at [facility] than other [facility]. Direct resultcomparison should only be made within the same method. Performed By: #### 1 6128-1 #### SHAI Pickard ([id number]) [facility] [address] [place] [address]32 Follicle Diameter USon 02-20 Follicle scan performed with follicle measurements in report. RIS SECTRA ONLY Radiology Study observation (narrative) [facility] Work Phone: Follicle Diameter USOrdered By: Juan Chavarria on 02-21-2024 [facility] Work Phone: Luteinizing Hormone (LH)on Lutropin Qn 0.9 m[IU]/mL IU/L [facility] Comment on above: LH Reference Values Follicular Phase 1.5-10.0 Mid-Cycle 13.0-72.0 Luteal Phase 0.5-13.0 Menopause 15.0-65.0 Pre-puberty 0- 3.0 Children 0- 6.0 Adult Male 1.0- 9.0 Luteinizing Hormone is performed using the [employer] Access Immunoassay. LH testing is performed using a different test methodology at [facility] than other [facility]. Direct result comparison should only be made within the same method. Lutropinon 02-21-2024 Lutropin Qn 0.9 IU/L Normal [facility] Comment on above: Result Comment: LH R eference Values Follicular Phase 1.5-10.0 Mid-Cycle 13.0-72.0 Luteal Phase 0.5-13.0 Menopause 15.0-65.0 Pre-puberty 0- 3.0 Children 0- 6.0 Adult Male 1.0- 9.0 Luteinizing Hormone is performed using the [employer] Access Immunoassay. LH testing is performed using a different test methodology at [facility] than other [facility]. Direct result comparison should only be made within the same method. Performed By: #### 1 6128-1 #### SHAI Pickard ([id number]) [facility] [address] [place] [address] Lutropin Qnon 02-21-2024 [facility] Progesteroneon 02-21-2024 Progesterone [Mass/Vol] 1.3 ng/mL U [facility] Progesterone [Mass/Vol] 1.3 ng/mL Normal U [facility] Comment on above: Order Comment: REF V ALUESMale <0.2-0.8Follicular Phase <0.2-1.5Luteal Phase 7.4-15.4Post Menopausal <0.2-0.21ST Trimester 12.0-84.02ND Trimester 10.2-58.83RD Trimester 46.5-160Progesterone is performed using the [employer] [place] Access Immunoassay.Progesterone testing is performed using a different test methodology at [facility] than other [facility]. Direct result comparison should only be made within the same method. Performed By: #### 5 196-1 #### SHAI Pickard ([id number]) [facility] [address] [place] [address] Progesterone [Mass/Vol]on REF VALUES Male <0.2-0.8 Follicular Phase <0.2-1.5 Luteal Phase 7.4-15.4 Post Menopausal <0.2-0.2 1ST Trimester 12.0-84.0 2ND Trimester 10.2-58.8 3RD Trimester 46.5-160 Progesterone is performed using the Faith [employer] Access Immunoassay. Progesterone testing is performed using a different test methodology at [facility] than other [facility]. Direct result comparison should only be made within the same method. [facility] KELSY US PELVIS LIMITED FOLLIC LES-FOLLICLE STUDIES PERFORMEDon 02-21-2024 KELSY US PELVIS LIMITED FOLLICLES-FOLLICLE STUDIES PERFORMED Follicle scan performed with follicle measurements in report. Normal [facility] Estradiolon 02-20-2024 E2 [Mass/Vol] 3718 pg/mL Normal [facility] Comment on above: Order Comment: REF V ALUESFOLLICULAR PHASE 20-144MID CYCLE 64-357LUTEAL PHASE 56-214POSTMENOPAUSE < 32PREPUBERTY < 20FEMALE 10-18Y 8-110MALE 10-18Y < 20ADULT MALE < 40Estradiol measurement is performed using the [employer] Access Estradiol Immunoassay. Estradiol testing is performed using a different test methodology at [facility] than other [facility]. Direct resultcomparison should only be made within the same method. Performed By: #### 5 196-1 #### SHAI Pickard ([id number]) [facility] [address] [place], [place] [id number] Progesteroneon 02-20-2024 Progesterone [Mass/Vol] 1.4 ng/mL Normal [facility] Comment on above: Order Comment: REF V ALUESMale <0.2-0.8Follicular Phase <0.2-1.5Luteal Phase 7.4-15.4Post Menopausal <0.2-0.21ST Trimester 12.0-84.02ND Trimester 10.2-58.83RD Trimester 46.5-160Progesterone is performed using the [employer] Access Immunoassay.Progesterone testing is performed using a different test methodology at [facility] than other [facility]. Direct result comparison should only be made within the same method. Performed By: #### 5 196-1 #### SHAI Pickard ([id number]) [facility] [address] [place] [address] KELSY US PELVIS LIMITED FOLLIC LES-FOLLICLE STUDIES PERFORMEDon 02-20-2024 KELSY US PELVIS LIMITED FOLLICLES-FOLLICLE STUDIES PERFORMED Follicle scan performed with follicle measurements in report. Normal [facility] E2 [Mass/Vol]on 02-18-2024 REF VALUES FOLLICULAR PHASE 20-144 MID CYCLE 64-357 LUTEAL PHASE 56-214 POSTMENOPAUSE < 32 PREPUBERTY < 20 FEMALE 10-18Y 8-110 MALE 10-18Y < 20 ADULT MALE < 40 Estradiol measurement is performed using the [employer] Access Estradiol Immunoassay. Estradiol testing is performed using a different test methodology at [facility] than other [facility]. Direct result comparison should only be made within the same method. [facility] Estradiolon 02-18-2024 E2 [Mass/Vol] 1472 pg/mL [facility] E2 [Mass/Vol] 1472 pg/mL Normal [facility] Comment on above: Order Comment: REF V ALUESFOLLICULAR PHASE 20-144MID CYCLE 64-357LUTEAL PHASE 56-214POSTMENOPAUSE < 32PREPUBERTY < 20FEMALE 10-18Y 8-110MALE 10-18Y < 20ADULT MALE < 40Estradiol measurement is performed using the [employer] [place] Access Estradiol Immunoassay. Estradiol testing is performed using a different test methodology at [facility] than other [facility]. Direct resultcomparison should only be made within the same method. Performed By: #### 5 196-1 #### SHAI Pickard ([id number]) [facility] [address] [place] [address] Follicle Diameter USon 02-17 Follicle scan performed with follicle measurements in report. Trilaminar appearance to the endometrium is noted. Free fluid is noted in the right paraovarian space. Notably retroverted uterus. RIS SECTRA ONLY Radiology Study observation (narrative) [facility] Work Phone: Follicle Diameter USOrdered By: Leigh Ann Tuttle on 02-18-2024 [facility] Work Phone: KELSY US PELVIS LIMITED FOLLIC LES-FOLLICLE STUDIES PERFORMEDon 02-18-2024 KELSY US PELVIS LIMITED FOLLICLES-FOLLICLE STUDIES PERFORMED Follicle scan performed with follicle measurements in report. Trilaminar appearance to the endometrium is noted. Free fluid is noted in the right paraovarian space. Notably retroverted uterus. Normal [facility] E2 [Mass/Vol]on 02-16-2024 REF VALUES FOLLICULAR PHASE 20-144 MID CYCLE 64-357 LUTEAL PHASE 56-214 POSTMENOPAUSE < 32 PREPUBERTY < 20 FEMALE 10-18Y 8-110 MALE 10-18Y < 20 ADULT MALE < 40 Estradiol measurement is performed using the [employer] [place] Access Estradiol Immunoassay. Estradiol testing is performed using a different test methodology at [facility] than other [facility]. Direct result comparison should only be made within the same method. [facility] Estradiolon 02-16-2024 E2 [Mass/Vol] 639 pg/mL [facility] E2 [Mass/Vol] 639 pg/mL Normal [facility] Comment on above: Order Comment: REF V ALUESFOLLICULAR PHASE 20-144MID CYCLE 64-357LUTEAL PHASE 56-214POSTMENOPAUSE < 32PREPUBERTY < 20FEMALE 10-18Y 8-110MALE 10-18Y < 20ADULT MALE < 40Estradiol measurement is performed using the [employer] [place] Access Estradiol Immunoassay. Estradiol testing is performed using a different test methodology at [facility] than other [facility]. Direct resultcomparison should only be made within the same method. Performed By: #### 5 196-1 #### SHAI Pickard ([id number]) [facility] [id number] [place] [address] KELSY US PELVIS LIMITED FOLLIC LES-FOLLICLE STUDIES PERFORMEDon 02-16-2024 KELSY US PELVIS LIMITED FOLLICLES-FOLLICLE STUDIES PERFORMED Follicle scan performed with follicle measurements in report. and Trilaminar appearance to the endometrium is noted. Normal [facility] E2 [Mass/Vol]on 02-09-2024 REF VALUES FOLLICULAR PHASE 20-144 MID CYCLE 64-357 LUTEAL PHASE 56-214 POSTMENOPAUSE < 32 PREPUBERTY < 20 FEMALE 10-18Y 8-110 MALE 10-18Y < 20 ADULT MALE < 40 Estradiol measurement is performed using the [employer] Access Estradiol Immunoassay. Estradiol testing is performed using a different test methodology at [facility] than other [facility]. Direct result comparison should only be made within the same method. [facility] Estradiolon 02-09-2024 E2 [Mass/Vol] pg/mL pg/mL [facility] E2 [Mass/Vol] pg/mL Normal [facility] Comment on above: Order Comment: REF V ALUESFOLLICULAR PHASE 20-144MID CYCLE 64-357LUTEAL PHASE 56-214POSTMENOPAUSE < 32PREPUBERTY < 20FEMALE 10-18Y 8-110MALE 10-18Y < 20ADULT MALE < 40Estradiol measurement is performed using the [employer] [place] Access Estradiol Immunoassay. Estradiol testing is performed using a different test methodology at [facility] than other [facility]. Direct resultcomparison should only be made within the same method. Performed By: #### 5 196-1 #### SHAI Pickard ([id number]) [facility] [address] [place] [address] Follicle Diameter USon 02-08 Follicle scan performed with follicle measurements in report. MFM Radiology Study observation (narrative) [facility] Work Phone: Follicle Diameter USOrdered By: Juan Chavarria on 02-09-2024 [facility] Work Phone: Hematocrit Auto (Bld) [Volum e fraction]on 02-09-2024 Hematocrit (Bld) [Volume fraction] 42.9 % 36.0 - 46.0 % [facility] Interpretation and review of laboratory results Normal [facility] Hematocrit (Bld) [Volume fraction] 42.9 % Normal 36.0-46.0 [facility] Comment on above: Performed By: #### 4 544-3 #### JOSEPH ESQUIVEL ([id number]) [facility] [address] [place] [address] KELSY US PELVIS LIMITED FOLLIC LES-FOLLICLE STUDIES PERFORMEDon 02-09-2024 KELSY US PELVIS LIMITED FOLLICLES-FOLLICLE STUDIES PERFORMED Follicle scan performed with follicle measurements in report. Normal [facility] HCG ( test) Ql (U)o n 01-28-2024 Interpretation and review of laboratory results Normal [facility] Work Phone: Preg Test, Ur Negative Negative [facility] Work Phone: [facility] Work Phone: No Panel Informationon 01-27 [...] Tolerated well, no immediate complications [facility] Work Phone: Surgical pathology studyon 0 01-28-2024 Surgical pathology study Pathology report.total SEE COMMENT Surgical Pathology Case: [id number] Authorizing Provider: Leigh Ann Tuttle MD Collected: 01/28/2024 1027 Ordering Location: [facility] Received: 01/28/2024 1027 [place] Pathologist: Yamila Leo MD Specimen: ENDOMETRIUM POLYPECTOMY Path report.final diagnosis SEE COMMENT A. ENDOMETRIUM, POLYPECTOMY: -- Minute cytologically normal glandular epithelium, insufficient for diagnostic evaluation Laboratory comment By the signature on this report, the individual or group listed as making the Final Interpretation/Diag nosis certifies that they have reviewed this case. Path report.relevant Hx endometrial polyps Path report.gross observation SEE COMMENT Received in formalin in a gauze sock, labeled with the patient's name, hospital number, are multiple irregular fragments of toth, rubbery tissue aggregating to 0.1 x 0.1 x 0.1 cm. The specimen may not survive processing. The specimen is entirely submitted in 1 cassette. JEK/SBS [facility] IGP,APTIMA HPV,AGE GDLNon AGE GDLN ACOG TESTING Note . [facility] Comment on above: TESTS RESULT FLAG UN ITS REF RANGE LAB Clinician Provided Cytology Information Source.............Cervix;Endocervix No. of containers..01 ThinPrep Vial Age Arsh VALDEZ Telma... FLAG LEGEND: L-Low Normal,H-High Normal,LL-Alert Low,HH-Alert High <-Panic Low,>-Panic High,A-Abnormal,AA-Critical Abnormal Performed at: 01 =G [facility] [place] [address] Nidhi Fay MD, IGP, RFX APTIMA HPV ASCU Note . [facility] Comment on above: TESTS RESULT FLAG U NITS REF RANGE LAB DIAGNOSIS: 02 NEGATIVE FOR INTRAEPITHELIAL LESION OR MALIGNANCY. Specimen adequacy: 02 Satisfactory for evaluation. Endocervical and/or squamous metaplastic cells (endocervical component) are present. Performed by: Gaby Masters Peripatologist ([facility]) . 02 Note: Note 02 The Pap [...] <-Panic Low,>-Panic High,A-Abnormal,AA-Critical Abnormal Performed at: [address] [address] Nidhi Fay MD, Performed at: =G - [facility] [address] [id number] Rotary Driller Helper: Nidhi Fay MD, Phone: [phone] Performed at: - [facility] [id number] Rotary Driller Helper: Nidhi Fay MD, Phone: [phone] BRUSH-SPATULA CERVIX ENDOCERVIX [facility] Blood type and Indirect anti body screen panel (Bld)on 2023 ABO group Nom (Bld) O [facility] Blood group antibody screen Ql Negative [facility] D Ag Ql (Bld) Positive [facility] ABO group Nom (Bld) O Normal [facility] Comment on above: Performed By: #### 3 4532-2 #### JOSEPH ESQUIVEL ([id number]) [facility] ([facility]) [address] Blood group antibody screen Ql Negative Normal [facility] Comment on above: Performed By: #### 3 4532-2 #### JOSEPH ESQUIVEL ([id number]) [facility] ([facility]) [address] [place] [address] [place] D Ag Ql (Bld) Positive Normal [facility] Comment on above: Performed By: #### 3 4532-2 #### JOSEPH ESQUIVEL ([id number]) [facility] ([facility]) [address] [place] [address] US C. trachomatis and N. gonorr hoeae DNA EDELMIRA+probe Nom (Unsp spec)on 2023 C. trachomatis rRNA EDELMIRA+probe Ql (Unsp spec) Negative Normal Negative [facility] Comment on above: Order Comment: The A [...] By: #### 3 6903-3 #### SHAI Pickard ([id number]) [facility] [address] [place] [address] N. gonorrhoeae DNA Probe+sig amp Ql (Unsp spec) Negative Normal Negative [facility] Comment on above: Order Comment: The [...] By: #### 3 6903-3 #### SHAI Pickard ([id number]) [facility] [address] [place] [address] HIV 1+2 Ab+HIV1 p24 Agon 08- 09-2024 HIV 1+2 Ab+HIV1 p24 Ag IA Ql Non-Reactive Normal Nonreactive [facility] Comment on above: Order Comment: HIV A g/Ab screen is performed using the [employer] HIV Ag/Ab Combo assay which detects the presence of HIV p24 antigen as well as antibodies to HIV-1 (Group M and O) and HIV-2. No laboratory evidence of HIV infection. If acute HIV infection is suspected, consider testing for HIV RNA by PCR (viral load). Performed By: #### 5 6888-1 #### SHAI Pickard ([id number]) [facility] [address] [place], [place] [address] Hepatitis B virus surface Ag on 2023 HBV surface Ag IA Ql Non-Reactive Normal Nonreactive [facility] Comment on above: Result Comment: Biot in interference may cause falsely decreased results. Patients taking a Biotin dose of up to 5 mg/day should refrain from taking Biotin for 24 hours before sample collection. Providers may contact their local laboratory for further information. Performed By: #### 5 196-1 #### SHAI Pickard ([id number]) [facility] [address] [place] [address] Hepatitis C virus Abon 12-10 HCV Ab Ql (S) Non-Reactive Normal Nonreactive [facility] Comment on above: Result Comment: Resu lts from patients taking biotin supplements or receiving high-dose biotin therapy should be interpreted with caution due to possible interference with this test. Providers may contact their local laboratory for further information. Performed By: #### 1 6128-1 #### SHAI Pickard ([id number]) [facility] [address] [place] [address] Rubella virus IgG IA Qnon Rubella virus IgG IA Ql Positive Normal Negative [facility] Comment on above: Order Comment: [...] By: #### 5 334-8 #### SHAI Pickard ([id number]) [facility] [address] [place] [address] Rubella virus IgG Qn (S) 1.2 IA Normal <=0.7 IA [facility] Comment on above: Order Comment: NEGAT [...] By: #### 5 334-8 #### SHAI Pickard ([id number]) [facility] [address] [place] [address] Treponema pallidum Ab.IgG+Ig Mon 2023 T. pallidum IgG+IgM IA Ql (S) Non-Reactive Normal Nonreactive [facility] Comment on above: Result Comment: No s ignificant level of Treponema pallidum antibody detected. Repeat testing in 2 to 4 weeks may be considered if early infection or incubating syphilis infection is suspected. Performed By: #### 4 7236-5 #### SHAI Pickard ([id number]) [facility] [address] [place] [address] VZV IgG IA Ql (S)on 12-11-19 24 VARICELLA ZOSTER IGG INDEX 5.6 IA High <=0.8 [facility] Comment on above: Order Comment: NEGAT [...] By: #### 1 5410-4 #### SHAI Pickard ([id number]) [facility] [address] [place] [address] Varicella zoster virus Ab.Ig Biju 2023 VZV IgG IA Ql (S) Positive Abnormal Negative [facility] Comment on above: Order Comment: NEGAT DEZ: [...] By: #### 1 5410-4 #### SHAI Pickard ([id number]) [facility] [address] [place], [place] [address] Ambulatory Visit Summaryon 0 10-02-2023 Ambulatory Visit [...] knee anterior cruciate ligament allograft reconstruction with ykcp-kmfcoq-kewa, debridment medial meniscus tear, patellofemoral chondroplasty-Grade I-II (07/28/2013), Tonsillectomy, tubes in the ears. Discharge Vitals Temperature (Oral) 36.8 ?C Heart Rate (Peripheral) 65 Blood Pressure 118/66 Height 162 cm Height 64 in Weight 76.7 kg Weight 168.74 lb BMI 29.23 What to do next Scheduled Follow-Up Appointments Thursday 7:20 AM EDT With: Princess Dumont Where: [facility] Primary Care Normal [facility] Family Medicine Office/Clini c Noteon 10-02-2023 [...] lot of blood work ordered by her SPRING SALVAGE WORKER and we are going to go over [...] mg once day. She has been taking vjzn-qtt-sfvghiz magnesium at night since initiating Topamax. Weight management. The patient expresses a desire to lose weight and re-initiate her Adipex. She has previously tried Aryan vzke-den-echexzc but found it ineffective. 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 She is agreeable trying vitamin [...] with me in (more content not included)... [facility] Comment on above: Result Comment: Elec tronically Signed By: Princess Dumont\.br\Date and Time Signed: 10/02/23 16:44 EDT\.br\Electronically Co-Signed By: Raj Chu\.br\Date and Time Co-Signed: 10/02/23 15:48 EDT Lab Reportson 10-02-2023 Lab Reports [id number] 02#[id number] [facility] Patient Educationon 10-02-19 Patient Education BMI [...] numbers. This can be done either in [place] or metric measurements. Note that charts and online BMI calculators are available to help you find your BMI quickly and easily without having to do these calculations yourself. To calculate your BMI in [place] measurements: 1. Measure your weight in [...] for Disease Control and Prevention: www.cdc.gov ? Scottish Heart Association: www.heart.org ? National Heart, Lung, and Blood [place]: www.nhlbi.nih.gov Summary ? Body mass index (BMI) is a number that is calculated from a person's weight and height. ? BMI may help estimate how much of a person's weight is composed of fat. BMI can help identify those who may be at higher risk for certain medical problems. ? BMI can be measured using [place] measurements or metric measurements. ? BMI charts are used to identify whether you are underweight, normal weight, overweight, or obese. This information is not intended to replace advice given to you by your health care provider. Make sure you discuss any questions you have with your health care provider. Document Revised: 01/11/2020 Document Reviewed: 11/18/2019 [facility] Patient Education ? 2022 Upplication. Dermatology Eczema Eczema refers to a group [...] symptoms? S (more content not included)... Normal [facility] Transfer Inon 09-02-2023 Transfer In [id number] 2#1.00TIFF Normal [facility] Family Medicine Office/Clini c Noteon 08-29-2023 Family Medicine Office/Clinic Note Chief Complaint 1 month follow up-Headaches HPI Staff Reason for visit: Follow up for headaches Note: Patient states her headaches have not changed. She has them 3 times a week mainly located in the frontal area. Patient would like to discuss Adipex/weight loss History of Present Illness Sydney oRmero is a 27-year-old female who presents for [...] and encouraged her to go see her SPRING SALVAGE WORKER. The patient was overweight with an elevated BMI. Her laboratories I ordered were not performed, and she did not do the x-ray that I ordered either. She presents for headaches again. Cervicalgia and persistent headaches. The patient underwent cervical x-ray in 02/20/2023 in [place], the day after her last visit on [...] in 06/2023 or 07/2023 and done at [place]. She is uncertain if cholesterol levels were checked. Her bowel movements and urination are normal. She and her switched clinics where she is the patient for an IVF and are waiting for an appointment within the next 2 months. She has a . 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 Ibuprofen every 6 to 8 hours. Tylenol [...] appearing. EN (more content not included)... Normal [facility] Comment on above: Result Comment: Elec tronically Signed By: Princess Dumont\.br\Date and Time Signed: 08/29/23 15:46 EDT\.br\Electronically Co-Signed By: Ryan Kapadia\.br\Date and [...] numbers. This can be done either in [place] ([place] or metric measurements. Note that charts and online BMI calculators are available to help you find your BMI quickly and easily without having to do these calculations yourself. To calculate your BMI in [place] ([place] measurements: 1. Measure your weight in [...] for Disease Control and Prevention: www.cdc.gov ? [employer] Heart Association: www.heart.org ? National Heart, Lung, and Blood [place]: www.nhlbi.nih.gov Summary ? Body mass index (BMI) is a number that is calculated from a person's weight and height. ? BMI may help estimate how much of a person's weight is composed of fat. BMI can help identify those who may be at higher risk for certain medical problems. ? BMI can be measured using [place] measurements or metric measurements. ? BMI charts are used to identify whether you are underweight, normal weight, overweight, or obese. This information is not intended to replace advice given to you by your health care provider. Make sure you discuss any questions you have with your health care provider. Document Revised: 01/11/2020 Document Reviewed: 11/18/2019 FNZ Patient Education ? 2022 Upplication. Endocrinology Carbohydrate Counting for Diabetes Mellitus, Adult [...] contain carbohydra (more content not included)... Normal [facility] DHEA SERUMon 07-31-2022 Dehydroepiandrosterone (DHEA) 429 ng/dL Normal 31-701 [facility] Comment on above: Performed By: #### D MILTON. #### [facility] [address] [place] [address] Dr. Meghna Alas ANTI-MULLERIAN HORMONEon Anti-Mullerian Hormone (AMH) 2.01 ng/mL Normal [facility] Comment on above: Result Comment: For assays employing antibodies, the possibility exists for interference by heterophile antibodies in the samples.1 1.Ramon Calderon Interferences in Immunoassays - still a threat. Clin. Chem. 2000; 46: 9663-4739. This test was developed and its performance characteristics determined by [employer]. It has not been cleared or approved by the Food and Drug Administration. Reference Range: Females 20 - 25y: 1.23 - 11.51 Median 4.70 AMH concentrations of >= 1.06 ng/mL is correlated with a better response to ovarian stimulation, produced more retrievable oocytes and higher odds of live according to Efra et al. Fertility and Sterility. 2010: 94:0490-0263. The current AMH test method correlates with [...] tumor. Performed By: #### A JOSE #### [facility] [address] [address] [address] Meghna Alas PAP ACOG PANEL 2: 21 to 29on 07-29-2022 . . Normal [facility] Comment on above: Performed By: #### [id number] ####[facility] [id number] [address]Dr. Meghna Alas Age Gdln ACOG Testing 23- Normal [facility] Comment on above: Performed By: #### 4 [id number] ####[facility] [id number] [id number]. Meghna Alas DIAGNOSIS: Comment Normal [facility] Comment on above: Result Comment: NEGA TIVE FOR INTRAEPITHELIAL LESION OR MALIGNANCY. Performed By: #### 4 [id number] ####[facility] [id number] [address]Dr. Meghna Alas Methodology: Comment [facility] Comment on above: Result Comment: This liquid based ThinPrep(R) pap test was screened with the use of an image guided system. Performed By: #### 4 [id number] ####[facility] [id number] [address]Dr. Meghna Alas Note: Comment Normal [facility] Comment on above: Result Comment: The Pap smear is a screening test designed to aid in the detection of premalignant and malignant conditions of the uterine cervix. It is not a diagnostic procedure and should not be used as the sole means of detecting cervical cancer. Both false-positive and false-negative reports do occur. . Performed By: #### 4 [id number] ####[facility] [id number] [address]DrBetito Alas Performed by: Comment Normal [facility] Comment on above: Result Comment: Antonella Villarreal, Supervisory Peripatologist (ASCP) Performed By: #### 4 [id number] ####[facility] [id number] [address]DrBetito Alas Reflex Criteria: Comment Normal [facility] Comment on above: Result Comment: The HPV DNA reflex criteria were not met with this specimen result therefore, no HPV testing was performed. . Performed By: #### 4 [id number] ####[facility] [address] [place], [place] [address]Dr. Meghna Alas Specimen adequacy: Comment Normal [facility] Comment on above: Result Comment: Sati sfactory for evaluation. Endocervical and/or squamous metaplastic cells (endocervical component) are present. Performed By: #### 4 [id number] ####[facility] [address] [place], [place] [address]Dr. Meghna Alas DHEA-SULFATEon 07-27-2022 DHEA-Sulfate 195.0 ug/dL Normal 110.0-431.7 [facility] Comment on above: Performed By: #### D RADHA #### [facility] [address] [address] [address] Meghna Alas FSHon 07-27-2022 FSH 11.4 mIU/mL Normal [facility] Comment on above: Result Comment: Adul t Female: Follicular phase 3.5 - 12.5 Ovulation phase 4.7 - 21.5 Luteal phase 1.7 - 7.7 Postmenopausal 25.8 - 134.8 Performed By: #### L [facility] #### [facility] [address] [address] [address] Meghna Alas LUTEINIZING HORMONE (LH)on 0 07-27-2022 LH 61.8 mIU/mL Normal [facility] Comment on above: Result Comment: Adul t Female: Follicular phase 2.4 - 12.6 Ovulation phase 14.0 - 95.6 Luteal phase 1.0 - 11.4 Postmenopausal 7.7 - 58.5 Performed By: #### L [facility] #### [facility] [address] [place], [place] [address] Dr. Meghna Alas US PELVIS AND TRANSVAGon [...] RACQUEL UNLU Date: 2022-07-27 08:10 Normal [facility] CBC AUTO DIFFon 07-26-2022 BASO # 0.1 103/ul Normal 0.0-0.1 [facility] Comment on above: Performed By: #### C BC #### [facility] [address] [place] [address] [address] [address] Meghna Alas Basophils/100 WBC (Bld) 0.8 % Normal 0.2-2.0 [facility] Comment on above: Performed By: #### C BC #### [facility] [address] [place] [address] Dr. Meghna Alas EO # 0.2 103/ul Normal 0.0-0.7 [facility] Comment on above: Performed By: #### C BC #### [facility] [address] [place] [address] Dr. Meghna Alas Eosinophils/100 WBC (Bld) 3.7 % Normal 0.9-7.0 [facility] Comment on above: Performed By: #### C BC #### [facility] [address] [place] [address] Dr. Meghna Alas Erythrocyte distribution width (RBC) [Ratio] 11.7 % Normal 11.0-15.0 [facility] Comment on above: Performed By: #### C BC #### [facility] [address] [place] [address] Dr. Meghna Alas Hematocrit (Bld) [Volume fraction] 43.6 % Normal 36.0-48.0 [facility] Comment on above: Performed By: #### C BC #### [facility] [address] [place] [address] Dr. Meghna Alas Hemoglobin (Bld) [Mass/Vol] 14.9 g/dL Normal 12.0-16.0 [facility] Comment on above: Performed By: #### C BC #### [facility] [address] [place] [address] Dr. Meghna Alas IG # 0.02 10e3/ul Normal 0.00-0.03 [facility] Comment on above: Performed By: #### C BC #### [facility] [address] [place] [address] Dr. Meghna Alas IG % 0.3 % Normal 0.0-0.5 [facility] Comment on above: Performed By: #### C BC #### [facility] [address] [place] [address] Dr. Meghna Alas LYMPH # 1.7 103/ul Normal 1.2-3.8 [facility] Comment on above: Performed By: #### C BC #### [facility] [address] [place] [address] Dr. Meghna Alas Lymphocytes/100 WBC (Bld) 27.7 % Normal 20.5-60.0 [facility] Comment on above: Performed By: #### C BC #### [facility] [address] [place] [address] Dr. Meghna Alas MANUAL DIFF REQ NO Normal [facility] Comment on above: Performed By: #### C BC #### [facility] [address] [place] [address] Dr. Meghna Alas MCH (RBC) [Entitic mass] 30.7 pg Normal 26.7-34.0 [facility] Comment on above: Performed By: #### C BC #### [facility] [address] [place] [address] Dr. Meghna Alas MCHC (RBC) [Mass/Vol] 34.2 g/dL Normal 29.9-35.2 [facility] Comment on above: Performed By: #### C BC #### [facility] [address] [place] [address] Dr. Meghna Alas MCV (RBC) [Entitic vol] 89.7 fL Normal 81.0-99.0 [facility] Comment on above: Performed By: #### C BC #### [facility] [address] [place] [address] Dr. Meghna Alas MONO # 0.4 103/ul Normal 0.3-0.8 [facility] Comment on above: Performed By: #### C BC #### [facility] [address] [place] [address] Dr. Meghna Alas Monocytes/100 WBC (Bld) 7.1 % Normal 1.7-12.0 [facility] Comment on above: Performed By: #### C BC #### [facility] [address] [place] [address] Dr. Meghna Alas NEUT # 3.7 103/ul Normal 1.4-6.5 [facility] Comment on above: Performed By: #### C BC #### [facility] [address] [place] [address] Dr. Meghna Alas Neutrophils/100 WBC (Bld) 60.4 % Normal 43.0-75.0 [facility] Comment on above: Performed By: #### C BC #### [facility] [address] [place] [address] Dr. Meghna Alas Platelet mean volume (Bld) [Entitic vol] 11.3 fL Normal 9.5-13.5 [facility] Comment on above: Performed By: #### C BC #### [facility] [address] [place] [address] Dr. Meghna Alas PLT 154 103/ul Normal 150-450 [facility] Comment on above: Performed By: #### C BC #### [facility] [address] [place] [address] Dr. Meghna Alas RBC 4.86 106/ul Normal 4.20-5.40 [facility] Comment on above: Performed By: #### C BC #### [facility] [address] [place] [address] Dr. Meghna Alas WBC 6.2 103/ul Normal 4.0-11.0 [facility] Comment on above: Performed By: #### C BC #### [facility] [address] [place] [address] Dr. Meghna Alas FREE T4on 07-26-2022 Free T4 [Mass/Vol] 1.04 ng/dL Normal 0.76-1.46 [facility] Comment on above: Performed By: #### F T4 #### [facility] [address] [place] [address] Dr. Meghna Alas GLYCOHEMOGLOBIN A1Con 2022 ADA RECOMMENDATION SEE BELOW Normal [facility] Comment on above: Result Comment: ADA RECOMMENDED LIMIT 4.0 - 6.0 ADA THERAPEUTIC TARGET < 7.0 ACTION SUGGESTED > 7.0 Performed By: #### A 1C #### [facility] [address] [place], [place] [id number] Dr. Meghna Alas Glucose [Mass/Vol] 82 mg/dL Normal [facility] Comment on above: Performed By: #### A 1C #### [facility] [address] [address] [address] Meghna Alas HbA1c (Bld) [Mass fraction] 4.5 % Normal 4.5-6.2 [facility] Comment on above: Performed By: #### A 1C #### [facility] [address] [place] [address] Dr. Meghna Alas TSHon 07-26-2022 TSH 1.522 uIU/mL Normal 0.358-3.740 [facility] Comment on above: Performed By: #### T SH #### [facility] [address] [place] [address] Dr. Meghna Alas Vital Signs Date Time Vital Sign Value Performing Clinician Facility 11-08-2024 14:59-0400 Body mass index (BMI) [Ratio] 35.59 kg/m2 Layo Sherwin DO Work Phone: [facility] 11-08-2024 14:59-0400 Body weight 91.13 kg Layo Sherwin DO Work Phone: [facility] 11-08-2024 14:59-0400 Diastolic blood pressure 80 mm[Hg] Layo Sherwin DO Work Phone: [facility] 11-08-2024 14:59-0400 Systolic blood pressure 122 mm[Hg] Layo Sherwin DO Work Phone: [facility] 10-17-2024 13:08-0400 Body mass index (BMI) [Ratio] 35.52 kg/m2 Layo Sherwin DO Work Phone: [facility] 10-17-2024 13:08-0400 Body weight 90.95 kg Layo Sherwin DO Work Phone: [facility] 10-17-2024 13:08-0400 Diastolic blood pressure 82 mm[Hg] Layo Sherwin DO Work Phone: [facility] 10-17-2024 13:08-0400 Systolic blood pressure 126 mm[Hg] Layo Sherwin DO Work Phone: [facility] 10-11-2024 14:41-0400 Body mass index (BMI) [Ratio] 35.22 kg/m2 Layo Sherwin DO Work Phone: [facility] 10-11-2024 14:41-0400 Body weight 90.17 kg Layo Sherwin DO Work Phone: [facility] 10-11-2024 14:41-0400 Diastolic blood pressure 74 mm[Hg] Layo Sherwin DO Work Phone: [facility] 10-11-2024 14:41-0400 Systolic blood pressure 112 mm[Hg] Layo Sherwin DO Work Phone: [facility] 09-06-2024 15:31-0400 Body mass index (BMI) [Ratio] 33.17 kg/m2 Rbandy Sissy PA Work Phone: [facility] 09-06-2024 15:31-0400 Body weight 84.94 kg Brandy [place] PA Work Phone: [facility] 09-06-2024 15:31-0400 Diastolic blood pressure 82 mm[Hg] Brandy Sissy PA Work Phone: [facility] 09-06-2024 15:31-0400 Systolic blood pressure 110 mm[Hg] Brandy [place] PA Work Phone: [facility] 08-08-2024 13:08-0400 Body mass index (BMI) [Ratio] 32.2 kg/m2 Layo Sherwin DO Work Phone: [facility] 08-08-2024 13:08-0400 Body weight 82.46 kg Layo Sherwin DO Work Phone: [facility] 08-08-2024 13:08-0400 Diastolic blood pressure 64 mm[Hg] Layo Sherwin DO Work Phone: [facility] 08-08-2024 13:08-0400 Systolic blood pressure 100 mm[Hg] Layo Courtney DO Work Phone: [facility] 07-29-2024 09:53-0400 Body mass index (BMI) [Ratio] 31.18 kg/m2 [facility] 07-29-2024 09:53-0400 Body weight 79.83 kg Nom Nurse [facility] 07-29-2024 09:53-0400 Diastolic blood pressure 72 mm[Hg] [facility] 07-29-2024 09:53-0400 Systolic blood pressure 118 mm[Hg] [facility] 04-06-2024 14:04-0500 Blood Pressure Location Mallory Jauregui [facility] 04-06-2024 14:04-0500 Diastolic blood pressure 74 mm[Hg] Mallory Jauregui [facility] 04-06-2024 14:04-0500 Heart rate 80 /min Mallory Jauregui [facility] 04-06-2024 14:04-0500 SaO2% (BldA) [Mass fraction] 100 % Mallory Jauregui [facility] 04-06-2024 14:04-0500 Systolic blood pressure 108 mm[Hg] Mallory Jauregui [facility] 03-22-2024 10:45-0500 Diastolic blood pressure 62 mm[Hg] Juan Chavarria MD Work Phone: [facility] 03-22-2024 10:45-0500 Heart rate 65 /min Juan Chavarria MD Work Phone: [facility] 03-22-2024 10:45-0500 Respiratory rate 17 /min Juan Chavarria MD Work Phone: [facility] 03-22-2024 10:45-0500 SaO2% (BldA) [Mass fraction] 100 % Juan Chavarria MD Work Phone: [facility] 03-22-2024 10:45-0500 Systolic blood pressure 94 mm[Hg] Juan Chavarria MD Work Phone: [facility] 03-22-2024 09:45-0500 Body temperature 97.3 [degF] Juan Chavarria MD Work Phone: 6(219)855-322676 [place] [address] 03-22-2024 08:29-0500 Body height 160 cm Juan Chavarria MD Work Phone: 2(954)536-467549 [place] [address] 03-22-2024 08:29-0500 Body mass index (BMI) [Ratio] 29.25 kg/m2 Juan Chavarria MD Work Phone: 9(529)353-658476 [place] [address] 03-22-2024 08:29-0500 Body weight 74.9 kg Juan Chavarria MD Work Phone: 3(984)082-066676 [place] [address] 02-23-2024 09:49-0400 Body temperature 97.7 [degF] Juan Chavarria MD Work Phone: 8(601)794-689749 [place] [address] 02-23-2024 09:49-0400 Diastolic blood pressure 65 mm[Hg] Juan Chavarria MD Work Phone: 2(993)259-219049 [place] [address] 02-23-2024 09:49-0400 Heart rate 94 /min Juan Chavarria MD Work Phone: 7(346)310-731549 [place] [address] 02-23-2024 09:49-0400 Respiratory rate 22 /min Juan Chavarria MD Work Phone: 8(145)574-395749 [place] [address] 02-23-2024 09:49-0400 SaO2% (BldA) [Mass fraction] 100 % Juan Chavarria MD Work Phone: 9(575)781-633349 [place] [address] 02-23-2024 09:49-0400 Systolic blood pressure 102 mm[Hg] Juan Chavarria MD Work Phone: 8(393)328-183649 [place] [address] 02-23-2024 07:27-0400 Body height 160 cm Juan Chavarria MD Work Phone: 7(253)046-915349 [place] [address] 02-23-2024 07:27-0400 Body mass index (BMI) [Ratio] 29.41 kg/m2 Juan Chavarria MD Work Phone: [facility] 02-23-2024 07:27-0400 Body weight 75.3 kg Juan Chavarria MD Work Phone: [facility] 01-28-2024 10:31-0400 Diastolic blood pressure 59 mm[Hg] Leigh Ann Tuttle MD Work Phone: [facility] 01-28-2024 10:31-0400 Heart rate 71 /min Leigh Ann Tuttle MD Work Phone: [facility] 01-28-2024 10:31-0400 Respiratory rate 20 /min Leigh Ann Tuttle MD Work Phone: [facility] 01-28-2024 10:31-0400 SaO2% (BldA) [Mass fraction] 100 % Leigh Ann Tuttle MD Work Phone: [facility] 01-28-2024 10:31-0400 Systolic blood pressure 101 mm[Hg] Leigh Ann Tuttle MD Work Phone: [facility] 01-28-2024 09:31-0400 Body temperature 98.1 [degF] Leigh Ann Tuttle MD Work Phone: [facility] 01-28-2024 08:48-0400 Body height 160 cm Leigh Ann Tuttle MD Work Phone: [facility] 01-28-2024 08:48-0400 Body mass index (BMI) [Ratio] 29.21 kg/m2 Leigh Ann Tuttle MD Work Phone: [facility] 01-28-2024 08:48-0400 Body weight 74.8 kg Leigh Ann Tuttle MD Work Phone: [facility] 01-14-2024 10:52-0400 Body mass index (BMI) [Ratio] 29.43 kg/m2 Brandy SEARS Work Phone: [facility] 01-14-2024 10:52-0400 Body weight 75.35 kg Brandy SEARS Work Phone: [facility] 01-14-2024 10:52-0400 Diastolic blood pressure 70 mm[Hg] Brandy SEARS Work Phone: [facility] 01-14-2024 10:52-0400 Systolic blood pressure 120 mm[Hg] Brandy SEARS Work Phone: [facility] 12-28-2023 10:09-0400 Body height 160 cm Juan Chavarria MD Work Phone: [facility] 12-28-2023 10:09-0400 Body mass index (BMI) [Ratio] 30.11 kg/m2 Juan Chavarria MD Work Phone: [facility] 12-28-2023 10:09-0400 Body weight 77.11 kg Juan Chavarria MD Work Phone: [facility] 12-28-2023 10:09-0400 Diastolic blood pressure 81 mm[Hg] Juan Chavarria MD Work Phone: [facility] 12-28-2023 10:09-0400 Heart rate 62 /min Juan Chavarria MD Work Phone: [facility] 12-28-2023 10:09-0400 Systolic blood pressure 119 mm[Hg] Juan Chavarria MD Work Phone: [facility] 2023 08:46-0400 Body height 160 cm Trish Thorpe SALES FLOOR MANAGER-[employer]ER OPERATOR Work Phone: [facility] 2023 08:46-0400 Body mass index (BMI) [Ratio] 29.23 kg/m2 Trish Thorpe SALES FLOOR MANAGER-MITER GRINDER OPERATOR Work Phone: [facility] 2023 08:46-0400 Body weight 74.84 kg Trish Thorpe SALES FLOOR MANAGER-MITER GRINDER OPERATOR Work Phone: [facility] 2023 08:46-0400 Diastolic blood pressure 67 mm[Hg] Trish Thorpe SALES FLOOR MANAGER-MITER GRINDER OPERATOR Work Phone: [facility] 2023 08:46-0400 Heart rate 72 /min Trish Thorpe SALES FLOOR MANAGER-MITER GRINDER OPERATOR Work Phone: [facility] 2023 08:46-0400 Systolic blood pressure 122 mm[Hg] Trish Thorpe SALES FLOOR MANAGER-MITER GRINDER OPERATOR Work Phone: [facility] 10-02-2023 11:14-0400 Blood Pressure Location Princess Rapp [facility] 10-02-2023 11:14-0400 Body temperature 98.24 [degF] Princess Rapp [facility] 10-02-2023 11:14-0400 Diastolic blood pressure 66 mm[Hg] Princess Rapp [facility] 10-02-2023 11:14-0400 Heart rate 65 /min Princess Rapp [facility] 10-02-2023 11:14-0400 SaO2% (BldA) [Mass fraction] 98 % Princess Rapp [facility] 10-02-2023 11:14-0400 Systolic blood pressure 118 mm[Hg] Princess Rapp [facility] 08-27-2023 17:44-0400 Blood Pressure Location Princess Rapp [facility] 08-27-2023 17:44-0400 Body temperature 98.06 [degF] Princess Rapp [facility] 08-27-2023 17:44-0400 Diastolic blood pressure 76 mm[Hg] Princess Rapp [facility] 04-25-2024 17:44-0400 Heart rate 85 /min Princess Rapp [facility] 08-27-2023 17:44-0400 Respiratory rate 14 /min Princess Rapp [facility] 08-27-2023 17:44-0400 SaO2% (BldA) [Mass fraction] 99 % Princess Rapp [facility] 08-27-2023 17:44-0400 Systolic blood pressure 110 mm[Hg] Princess Rapp [facility] 02-19-2023 07:41-0400 Body temperature 97.7 [degF] Princess Rapp [facility] 02-19-2023 07:41-0400 Diastolic blood pressure 70 mm[Hg] Princess Rapp [facility] 02-19-2023 07:41-0400 Heart rate 81 /min Princess Rapp [facility] 02-19-2023 07:41-0400 SaO2% (BldA) [Mass fraction] 99 % Princess Rapp [facility] 02-19-2023 07:41-0400 Systolic blood pressure 110 mm[Hg] Princess Rapp [facility] 07-24-2021 16:57-0400 Blood Pressure Location Leigh Ann Covington [facility] 07-24-2021 16:57-0400 Body temperature 97.7 [degF] Leigh Ann Covington [facility] 07-24-2021 16:57-0400 Diastolic blood pressure 68 mm[Hg] Leigh Ann Covington [facility] 07-24-2021 16:57-0400 Heart rate 88 /min Leigh Ann C[place]ton [facility] 07-24-2021 16:57-0400 SaO2% (BldA) [Mass fraction] 99 % Liegh Ann [facility] 07-24-2021 16:57-0400 Systolic blood pressure 122 mm[Hg] Leigh Ann Covington [facility] Encounters Encounter Date Encounter Type Care Provider Facility Start: 11-08-2024 End: 11-08-2024 flow sheet Layo Sherwin DO Work Phone: [facility] Comment on above: Second trimester pre gnancy ([facility]); 26 weeks gestation of ([facility]); Diabetes mellitus screening Start: 11-08-2024 End: 11-08-2024 ambulatory LAYO SHERWIN Not Available Start: 10-17-2024 End: 10-17-2024 Bamboo flowsheet Layo Sherwin DO Work Phone: [facility] Start: 10-17-2024 End: 10-17-2024 Bamboo flowsheet Layo Sherwin DO Work Phone: [facility] Start: 10-17-2024 End: 10-17-2024 flow sheet Layo Sherwin DO Work Phone: [facility] Comment on above: Acute bilateral low back pain without sciatica (Primary Dx); Second trimester ([facility]); 20 weeks gestation of ([facility]) Start: 10-17-2024 End: 10-17-2024 ambulatory LAYO SHERWIN Not Available Start: 10-11-2024 End: 10-11-2024 flow sheet Layo Sherwin DO Work Phone: [facility] Comment on above: Second trimester pre gnancy; 19 weeks gestation of ; Pruritus Start: 10-11-2024 End: 10-11-2024 ambulatory LAYONilsa RAMOSO Not Available Start: 10-11-2024 End: 10-11-2024 Bamboo flowsheet Layo Sherwin DO Work Phone: [facility] Start: 10-11-2024 End: 10-11-2024 Bamboo flowsheet Layo Sherwin DO Work Phone: [facility] Start: 10-11-2024 End: 10-11-2024 Clinisync Result Encounter Layo Sherwin DO Work Phone: [facility] Unsolicited Start: 10-07-2024 End: 10-07-2024 Clinisync Result Encounter Layo Sherwin DO Work Phone: [facility] Unsolicited Start: 10-07-2024 End: 10-07-2024 Clinisync Result Encounter Layo Sherwin DO Work Phone: [facility] Unsolicited Start: 10-07-2024 End: 10-07-2024 Subsequent hospital visit by physician Myles Saeed320 Obgynimg Ultrasound 1 Valeria Hay Comment on above: ([facility] [facility] Start: 10-07-2024 End: 10-07-2024 ambulatory LAYO COURTNEY [facility] Start: 09-22-2024 End: 09-22-2024 ambulatory BRANDY SHEEHAN Not Available Start: 09-06-2024 End: 09-06-2024 flow sheet Brandy Sheehan PA Work Phone: [facility] Comment on above: STD exposure; Second trimester ; 14 weeks gestation of ; Screening, , for anatomic survey Start: 09-06-2024 End: 09-06-2024 ambulatory BRANDY SHEEHAN Not Available Start: 09-06-2024 End: 09-06-2024 Bamboo flowsheet Brandy SEARS Work Phone: [facility] Start: 09-06-2024 End: 09-07-2024 Bamboo flowsheet Brandy SEARS Work Phone: [facility] Start: 09-06-2024 End: 09-07-2024 External Result Encounter Brandy SEARS Work Phone: [facility] [...] 07-11-2024 End: 07-11-2024 Patient encounter procedure Donya Pickard Josemanuel SALES FLOOR MANAGER-MITER GRINDER OPERATOR Work Phone: Valeria Hay Comment on above: Fertility testing (P rimary Dx); Encounter to determine viability of , single or unspecified fetus Start: 07-11-2024 End: 07-11-2024 [facility] Start: 06-30-2024 End: 06-30-2024 [facility] Start: 06-23-2024 End: 06-23-2024 [facility] Start: 06-23-2024 End: 06-23-2024 [facility] Start: 06-13-2024 End: 06-13-2024 Subsequent hospital visit by physician Juan Chavarria MD Work Phone: Valeria Hay Comment on above: Encounter for assist ed reproductive fertility cycle Start: 06-13-2024 End: 06-13-2024 ambulatory [facility] Start: 06-07-2024 End: 06-07-2024 [facility] Start: 06-06-2024 End: 06-06-2024 [facility] Start: 06-06-2024 End: 06-06-2024 Professional / ancillary services management [place] [id number] [facility] [place] Comment on above: Female infertility Start: 06-06-2024 End: 06-06-2024 [facility] Start: 05-23-2024 End: 05-23-2024 [facility] Start: 04-06-2024 ambulatory Mallory Jauregui Faci lity:Jessica ORDAZ Start: 04-06-2024 End: 04-06-2024 Patient encounter procedure Mallory Jauregui [facility] Start: 03-22-2024 End: 03-22-2024 Subsequent hospital visit by physician Juan Chavarria MD Work Phone: Valeria Hay Comment on above: Encounter for assist ed reproductive fertility cycle Start: 03-22-2024 End: 03-22-2024 [facility] JUAN Zamora [facility] Start: 03-21-2024 End: 03-21-2024 ambulatory [facility] Start: 03-20-2024 End: 03-20-2024 Professional / ancillary services management Mac [id number] Kels[facility] Ultrasound Valeria Hay Comment on above: Female infertility Start: 03-20-2024 End: 03-20-2024 [facility] Start: 03-19-2024 End: 03-19-2024 Professional / ancillary services management Mac [id number] Kels[facility] Ultrasound Valeria Hay Comment on above: Female infertility Start: 03-19-2024 End: 03-19-2024 ambulatory [facility] Start: 03-17-2024 End: 03-17-2024 ambulatory [facility] Start: 03-17-2024 End: 03-17-2024 Professional / ancillary services management Mac [id number] Kels[facility] Ultrasound Valeria Hay Comment on above: Female infertility Start: 03-17-2024 End: 03-17-2024 [facility] Start: 03-15-2024 End: 03-15-2024 ambulatory [facility] Start: 03-15-2024 End: 03-15-2024 [facility] Start: 03-15-2024 End: 03-15-2024 Professional / ancillary services management Mac [id number] Kelsy Ultrasound Valeria Hay Comment on above: Female infertility Start: 03-09-2024 End: 03-09-2024 ambulatory [facility] Start: 03-09-2024 End: 03-09-2024 Patient encounter status [facility] Start: 03-09-2024 End: 03-09-2024 Professional / ancillary services management Mac [id number] Kels[facility] Ultrasound Valeria Hay Comment on above: Female infertility; Pre-procedure lab exam Start: 03-09-2024 End: 03-09-2024 ambulatory AMERICA QUINTANILLA [facility] Start: 02-23-2024 End: 02-23-2024 Subsequent hospital visit by physician Juan Chavarria MD Work Phone: Valeria Hay Comment on above: Encounter for assist ed reproductive fertility cycle Start: 02-23-2024 End: 02-23-2024 ambulatory JUAN CHAVARRIA [facility] Start: 02-22-2024 End: 02-22-2024 ambulatory [facility] Start: 02-21-2024 End: 02-21-2024 Professional / ancillary services management Mac [id number] K[facility] Ultrasound Valeria Hay Comment on above: Female infertility Start: 02-21-2024 End: 02-21-[address] [facility] Start: 02-20-2024 End: 02-20-2024 ambulatory [facility] Start: 02-20-2024 End: 02-20-2024 Professional / ancillary services management Mac [id number] Kelsy Ultrasound Valeria Hay Comment on above: Female infertility Start: 02-20-2024 End: 02-20-[address] [facility] Start: 02-18-2024 End: 02-18-2024 ambulatory [facility] Start: 02-18-2024 End: 02-18-2024 Professional / ancillary services management Mac [id number] Kels[facility] Ultrasound Valeria Hay Comment on above: Female infertility Start: 02-18-2024 End: 02-18-[address] [facility] Start: 02-16-2024 End: 02-16-2024 Professional / ancillary services management Myles [id number] Kelsy Ultrasound [facility] [place] Comment on above: Female infertility Start: 02-16-2024 End: 02-16-[address] [facility] Start: 02-09-2024 End: 02-09-2024 Patient encounter status [facility] Start: 02-09-2024 End: 02-09-2024 Professional / ancillary services management Myles [id number] Kelsy Ultrasound [facility] [place] Comment on above: Pre-procedure lab ex am; Female infertility Start: 02-09-2024 End: 02-09-2024 ambulatory AMERICA QUINTANILLA [facility] Start: 02-02-2024 End: 02-02-2024 ambulatory [facility] Start: 01-28-2024 End: 01-28-2024 Subsequent hospital visit by physician Leigh [facility]uttle MD [facility] Comment on above: Endometrial polyp Start: 01-28-2024 End: 01-28-2024 ambulatory LEIGH ANN TUTTLE [facility] Start: 01-25-2024 End: 01-25-2024 ambulatory [facility] Start: 01-25-2024 End: 01-25-2024 Encounter for preprocedural laboratory examination [facility] Start: 01-14-2024 End: 01-14-2024 Bamboo flowsheet Brandy SEARS Work Phone: [facility] Start: 01-14-2024 End: 01-20-2024 Bamboo flowsheet Brandy SEARS Work Phone: [facility] Start: 01-14-2024 End: 01-20-2024 Clinisync Result Encounter Brandy SEARS Work Phone: [facility] Department Unsolicited Start: 01-14-2024 End: 01-14-2024 Patient encounter procedure Brandy SEARS Work Phone: [facility] Work Phone: Start: 01-14-2024 End: 01-14-2024 Periodic preventive med est patient 18-39 yrs Brandy SEARS Work Phone: [facility] Comment on above: Well woman exam with routine gynecological exam Start: 01-14-2024 End: 01-14-2024 ambulatory BRANDY SHEEHAN Not Available Start: 12-28-2023 End: 12-28-2023 Patient encounter procedure Juan Chavarria MD Work Phone: [facility] [place] Comment on above: Fertility testing [Z 31.41] (Primary Dx); 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 [Z31.81, N97.8] Start: 12-28-2023 End: 12-28-2023 ambulatory JUAN Zamora JUJU [facility] Start: 12-25-2023 End: 12-25-2023 ambulatory AFUA JULIAN [facility] Start: 2023 End: 2023 ambulatory TRISH THORPE [facility] Start: 2023 End: 2023 Patient encounter procedure Trish Thorpe SALES FLOOR MANAGER-MITER GRINDER OPERATOR Work Phone: [facility] Comment on above: Encounter for screen ing for other viral diseases (Primary Dx); Encounter for Rh blood typing; Screening for STDs (sexually transmitted diseases); Genetic screening; Fertility testing; Female infertility associated with male factors Start: 2023 End: 2023 Patient encounter status Trish Thorpe SALES FLOOR MANAGER-MITER GRINDER OPERATOR Work Phone: [facility] Work Phone: Start: 2023 End: 2023 ambulatory TRISH Polo [facility] Start: 2023 End: 2023 Encounter for blood typing TRISH Polo [facility] Start: 10-21-2023 ambulatory Princess Rapp [facility] ity:Jessica ORDAZ Start: 10-02-2023 End: 10-02-2023 ambulatory Princess Rapp Facility:[facility] Start: 10-02-2023 End: 10-02-2023 Patient encounter procedure Princess Rapp [facility] Start: 08-27-2023 End: 08-27-2023 ambulatory Princess Rapp Facility[facility] Start: 08-27-2023 End: 08-27-2023 Patient encounter procedure Princess Rapp [facility] Start: 03-25-2023 End: 03-25-2023 Patient encounter procedure Princess Rapp [facility] Start: 02-19-2023 End: 02-19-2023 Patient encounter procedure Princess Rapp [facility] Start: 07-26-2022 End: 07-27-[address] LAYO COURTNEY . Facility:[facility] Start: 07-23-2022 End: 07-23-[address] LAYO COURTNEY . Facility:[facility] Start: 07-24-2021 End: 07-24-2021 Patient encounter procedure Leigh Ann Covington [facility] Procedures Date Procedure Procedure Detail Performing Clinician Start: 11-09-2024 Urnls dip stick/tabl et rgnt non-auto w/o micrscp Layo Sherwin DO Work Phone: Start: 10-17-2024 Urnls dip stick/tabl et rgnt non-auto w/o micrscp Layo Sherwin DO Work Phone: Start: 10-11-2024 ALL CBC WITH AUTO DIFF Layo Sherwin DO Work Phone: Start: 10-07-2024 Us preg uterus w/det ail kehinde 1st gestation Layo Morris Sherwin DO Work Phone: Start: 10-07-2024 Us preg uterus w/det ail kehinde 1st gestation Layo Sherwin DO Work Phone: Start: 09-06-2024 RECURRENT VAGINITIS (HTRX) Brandy SEARS [...] pelvic nonobstetr ic image dcmtn limited/f/u Donya Pickard Josemanuel SALES FLOOR MANAGER-MITER GRINDER OPERATOR Work Phone: Start: 03-22-2024 Follicle puncture oo cyte retrieval any method Donya Pickard Josemanuel SALES FLOOR MANAGER-MITER GRINDER OPERATOR Work Phone: Start: 03-20-2024 Us pelvic nonobstetr ic image dcmtn limited/f/u Donya Pickard Josemanuel SALES FLOOR MANAGER-MITER GRINDER OPERATOR Work Phone: Start: 03-20-2024 Assay of estradiol America Quintanilla SALES FLOOR MANAGER-MITER GRINDER OPERATOR Work Phone: Start: 03-19-2024 Us pelvic nonobstetr ic image dcmtn limited/f/u Donya Pickard Josemanuel SALES FLOOR MANAGER-MITER GRINDER OPERATOR Work Phone: Start: 03-17-2024 Us pelvic nonobstetr ic image dcmtn limited/f/u Donya Pickard Josemanuel SALES FLOOR MANAGER-MITER GRINDER OPERATOR Work Phone: Start: 03-17-2024 Assay of estradiol Donya Pickard Josemanuel SALES FLOOR MANAGER-MITER GRINDER OPERATOR Work Phone: Start: 03-15-2024 Us pelvic nonobstetr ic image dcmtn limited/f/u Donya Pickard Josemanuel SALES FLOOR MANAGER-MITER GRINDER OPERATOR Work Phone: Start: 03-15-2024 Assay of estradiol Donya Pickard Josemanuel SALES FLOOR MANAGER-MITER GRINDER OPERATOR Work Phone: Start: 03-09-2024 Us pelvic nonobstetr ic image dcmtn limited/f/u America R Dwight SALES FLOOR MANAGER-MITER GRINDER OPERATOR Work Phone: Start: 03-09-2024 Blood count hematocrit Donya Abernathy SALES FLOOR MANAGER-MITER GRINDER OPERATOR Work Phone: Start: 02-23-2024 Follicle puncture oo cyte retrieval any method Beth Warren MD Work Phone: Start: 02-21-2024 Us pelvic nonobstetr ic image dcmtn limited/f/u America R Dwight SALES FLOOR MANAGER-MITER GRINDER OPERATOR Work Phone: Start: 02-21-2024 Gonadotropin luteini zing hormone Beti Warren MD Work Phone: Start: 02-18-2024 Us pelvic nonobstetr ic image dcmtn limited/f/u America R Dwight SALES FLOOR MANAGER-MITER GRINDER OPERATOR Work Phone: Start: 02-18-2024 Assay of estradiol America R Dwight SALES FLOOR MANAGER-MITER GRINDER OPERATOR Work Phone: Start: 02-16-2024 Assay of estradiol America R Dwight SALES FLOOR MANAGER-MITER GRINDER OPERATOR Work Phone: Start: 02-09-2024 Blood count hematocrit America R Dwight SALES FLOOR MANAGER-MITER GRINDER OPERATOR Work Phone: Start: 02-09-2024 Us pelvic nonobstetr ic image dcmtn limited/f/u America R Dwight SALES FLOOR MANAGER-MITER GRINDER OPERATOR Work Phone: Start: 01-28-2024 Hysteroscopy bx endometrium&/polypc [...] Arthrosco py with Medial Meniscal Repair Leigh Annmehdi [place] Start: 07-28-2013 right knee anterior cruciate ligament allograft reconstruction with ayaf-[id number], debridment medial meniscus tear, patellofemoral chondroplasty-Grade I-II Leigh Ann Bojorquezell Tonsillectomy Leigh Ann [place] tubes in the ears Leigh Ann bartholomew Plan of Treatment Date Care Activity Detail Author Start: 2072 RSV High Risk: (Elderly (60+) or Population) (1 - 1-dose 75+ series) RSV High Risk: (Elderly (60+) or Population) (1 - 1-dose 75+ series) [facility] Start: 12-12-2047 Zoster Vaccines (1 of 2) Zoster Vaccines (1 of 2) [facility] Start: 01-13-2027 Screening for malignant neoplasm of cervix [facility] Start: 01-02-2025 Influenza vaccination Influenza Vaccine (Season Ended) [facility] Start: 12-06-2024 End: 12-06-2024 Patient encounter procedure 12/06/2024 8:30 AM EDT Routine [facility] [address] [facility] [facility] [place] [phone] Layo Courtney, DO [address] [place] [address] [facility] Start: 11-08-2024 End: 11-08-2024 Patient encounter procedure 11/08/2024 2:40 PM EDT Routine [facility] [address] [place] [phone] Layo Courtney, DO [address] [place] [address] [facility] Start: 11-08-2024 End: 11-08-2025 CBC panel - Blood by Automated count CBC Lab Routine Diabetes mellitus screening Expected: 11/08/2024 (Approximate), Expires: 11/08/2025 [facility] Work Phone: Comment on above: Expected: 11/08/2024 (Approximate), Expi res: 11/08/2025 Start: 11-08-2024 End: 11-08-2025 Measurement of glucose 1 hour after glucose challenge for glucose tolerance test Glucose tolerance, 1 hour Lab Routine Diabetes mellitus screening Expected: 11/08/2024 (Approximate), Expires: 11/08/2025 [facility] Comment on above: Expected: 11/08/2024 (Approximate), Expi res: 11/08/2025 Start: 10-17-2024 End: 10-17-2024 Patient encounter procedure 10/17/2024 1:00 PM EDT Routine [facility] [address] [facility] [place] [phone] Layo Courtney DO [address] [facility] [place] [address] Arrived [facility] Comment on above: Arrived Start: 10-11-2024 End: 10-11-2024 Patient encounter procedure [facility] Comment on above: Arrived Start: 10-11-2024 End: 10-11-2025 Bile acids, total Bile acids, total Lab Routine Pruritus Expected: 10/11/2024 (Approximate), Expires: 10/11/2025 [facility] Healthcare Comment on above: Expected: 10/11/2024 (Approximate), Expi res: 10/11/2025 Start: 10-11-2024 End: 10-11-2025 CBC W Auto Differential panel - Blood CBC and differential Lab Routine Pruritus Expected: 10/11/2024 (Approximate), Expires: 10/11/2025 [facility] Comment on above: Expected: 10/11/2024 (Approximate), Expi res: 10/11/2025 Start: 10-11-2024 End: 10-11-2025 Hepatic function 2000 panel - Serum or Plasma Hepatic function panel Lab Routine Pruritus Expected: 10/11/2024 (Approximate), Expires: 10/11/2025 [facility] Comment on above: Expected: 10/11/2024 (Approximate), Expi res: 10/11/2025 Start: 10-11-2024 End: 10-11-2025 Hepatitis C virus Ab [Presence] in Serum or Plasma by Immunoassay Hepatitis C antibody Lab Routine Pruritus Expected: 10/11/2024 (Approximate), Expires: 10/11/2025 [facility] Work Phone: Comment on above: Expected: 10/11/2024 (Approximate), Expi res: 10/11/2025 Start: 10-11-2024 End: 10-11-2025 Thyrotropin [Units/volume] in Serum or Plasma TSH Lab Routine Pruritus Expected: 10/11/2024 (Approximate), Expires: 10/11/2025 [facility] Comment on above: Expected: 10/11/2024 (Approximate), Expi res: 10/11/2025 Start: 09-06-2024 End: 09-06-2024 Patient encounter procedure [facility] Comment on above: Arrived Start: 09-06-2024 End: 11-06-2024 Alpha fetoprotein, maternal Alpha fetoprotein, maternal Lab Routine Second trimester Expected: 09/06/2024 (Approximate), Expires: 11/06/2024 [facility] Comment on above: Expected: 09/06/2024 (Approximate), Expi res: 11/06/2024 Start: 09-06-2024 End: 12-07-2024 US for US OB 14+ weeks anatomy scan Imaging Routine Screening, , for anatomic survey Expected: 09/06/2024, Expires: 12/07/2024 [facility] Healthcare Comment on above: Expected: 09/06/2024, Expires: Start: 08-08-2024 End: 08-08-2024 Patient encounter procedure [facility] Comment on above: Arrived Start: 07-29-2024 End: 07-29-2025 ABO/Rh ABO/Rh Lab Routine Missed menses , unspecified gestational age Expected: 07/29/2024 (Approximate), Expires: 07/29/2025 [facility] Comment on above: Expected: 07/29/2024 (Approximate), Expi res: 07/29/2025 Start: 07-29-2024 End: 07-29-2025 Blood type and Indirect antibody screen panel - Blood Type and screen Lab Routine Missed menses , unspecified gestational age Expected: 07/29/2024 (Approximate), Expires: 07/29/2025 [facility] Work Phone: Comment on above: Expected: 07/29/2024 (Approximate), Expi res: 07/29/2025 Start: 07-29-2024 End: 07-29-2025 Drugs of abuse panel - Urine by Screen method Rapid drug screen, urine Lab Routine , unspecified gestational age Encounter for supervision of normal first in first trimester Expected: 07/29/2024 (Approximate), Expires: 07/29/2025 [facility] Healthcare Comment on above: Expected: 07/29/2024 (Approximate), Expi res: 07/29/2025 Start: 07-11-2024 End: 07-11-2025 Progesterone [Mass/volume] in Serum or Plasma Progesterone Lab Routine Fertility testing Expected: 07/11/2024 (Approximate), Expires: 07/11/2025 [facility] Service Area Work Phone: Comment on above: Expected: 07/11/2024 (Approximate), Expi res: 07/11/2025 Start: 06-23-2024 Orders Only 06/23/2024 Orders Only Valeria Hay [address] [place] [address] [phone] Ira Lopez RN Encounter for test, result unknown Valeria Hay Comment on above: Encounter for test, result unk nown Start: 03-20-2024 End: 03-20-2025 Lutropin [Units/volume] in Serum or Plasma Luteinizing Hormone Lab STAT Female infertility Expected: 03/20/2024 (Approximate), Expires: 03/20/2025 [facility] Work Phone: Comment on above: Expected: 03/20/2024 (Approximate), Expi res: 03/20/2025 Start: 03-20-2024 End: 03-20-2025 Progesterone [Mass/volume] in Serum or Plasma Progesterone Lab STAT Female infertility Expected: 03/20/2024 (Approximate), Expires: 03/20/2025 [facility] Service Area Work Phone: Comment on above: Expected: 03/20/2024 (Approximate), Expi res: 03/20/2025 Start: 03-20-2024 End: 03-20-2024 Professional / ancillary services management 03/20/2024 8:00 AM EST Ancillary Procedure [facility] [address] [place] [address] [facility] Start: 03-19-2024 End: 03-19-2024 Professional / ancillary services management 03/19/2024 8:30 AM EST Ancillary Procedure [facility] [address] [place] [address] [facility] Start: 03-17-2024 End: 03-17-2025 Estradiol (E2) [Mass/volume] in Serum or Plasma Estradiol Lab STAT Female infertility Expected: 03/17/2024 (Approximate), Expires: 03/17/2025 [facility] Service Area Work Phone: Comment on above: Expected: 03/17/2024 (Approximate), Expi res: 03/17/2025 Start: 03-17-2024 End: 03-17-2025 Progesterone [Mass/volume] in Serum or Plasma [facility] Work Phone: Comment on above: Expected: 03/17/2024 (Approximate), Expi res: 03/17/2025 Start: 03-17-2024 End: 03-17-2024 Professional / ancillary services management 03/17/2024 6:45 AM EST Ancillary Procedure [facility] [address] [place] [address] [facility] Start: 03-15-2024 End: 03-15-2024 Professional / ancillary services management 03/15/2024 6:45 AM EST Ancillary Procedure [facility] [address] [place] [address] Valeria Hay Start: 03-09-2024 End: 03-09-2024 Professional / ancillary services management 03/09/2024 7:15 AM EST Ancillary Procedure Valeria Hay [address] [place] [phone] Shaw [facility] Start: 02-23-2024 End: 02-23-2024 Patient encounter procedure 02/23/2024 8:30 AM EDT Appointment TERRY Hay [address] [place] [phone] Juan Chavarria MD [address] [place], [place] [id number] [place] [address] [facility] Department of Anesthesiology [place] [address] [facility] D[facility] Start: 02-21-2024 End: 02-21-2024 Professional / ancillary services management 02/21/2024 8:30 AM EDT Ancillary Procedure [facility] [address] [place] [phone] [facility] Darlinfadi Sat[facility] Start: 02-20-2024 End: 02-17-2025 Estradiol (E2) [Mass/volume] in Serum or Plasma Estradiol Lab STAT Female infertility Expected: 02/20/2024 (Approximate), Expires: 02/17/2025 [facility] Service Area Work Phone: Comment on above: Expected: 02/20/2024 (Approximate), Expi res: 02/17/2025 Start: 02-20-2024 End: 02-17-2025 Progesterone [Mass/volume] in Serum or Plasma Progesterone Lab STAT Female infertility Expected: 02/20/2024 (Approximate), Expires: 02/17/2025 [facility] Work Phone: Comment on above: Expected: 02/20/2024 (Approximate), Expi res: 02/17/2025 Start: 02-20-2024 End: 02-20-2024 Professional / ancillary services management 02/20/2024 8:30 AM EDT Ancillary Procedure Valeria Simmonson [address] [place] [address] Valeria Purcellilimaira Start: 02-18-2024 End: 02-18-2024 Professional / ancillary services management 02/18/2024 7:45 AM EDT Ancillary Procedure Valeria Simmonson [address] [place] [address] Valeria Purcellilimaira Start: 02-16-2024 End: 02-16-2024 Professional / ancillary services management 02/16/2024 7:15 AM EDT Ancillary Procedure [facility] [address] [place] [address] [facility] Start: 02-09-2024 End: 02-09-2024 Professional / ancillary services management 02/09/2024 7:15 AM EDT Ancillary Procedure [facility] [address] [place] [address] [facility] Start: 01-14-2024 End: 01-14-2024 Patient encounter procedure 01/14/2024 11:00 AM EDT Office Visit [facility] [address] [place] [phone] Brandy Sheehan PA [address] [place], [place] [id number] Arrived [facility] Comment on above: Arrived Start: 01-03-2024 COVID-19 Vaccine ( season) COVID-19 Vaccine ( season) [facility] Start: 01-03-2024 COVID-19 Vaccine ( season) COVID-19 Vaccine ( season) [facility] Start: 01-03-2024 Influenza vaccination Influenza Vaccine (#1) [facility] Start: 12-25-2023 End: 12-25-2023 Telemedicine consultation with patient 12/25/2023 9:00 AM EDT Telemedicine Clinical Support [facility] [address] [place] [address] Afua Julian I, [facility] [address] [facility] [place] [address] [facility] Start: 2023 End: 12-10-2024 Chlamydia trachomatis and Neisseria gonorrhoeae DNA [Identifier] in Unspecified specimen by EDELMIRA with probe detection [facility] Work Phone: Comment on above: Expected: 2023 (Approximate), Expi res: 12/10/2024 Start: 2023 End: 12-10-2024 Hepatitis B virus surface Ag [Presence] in Serum or Plasma by Immunoassay [facility] [facility] Work [facility] Comment on above: Expected: 2023 (Approximate), Expi res: 12/10/2024 Start: 2023 End: 12-10-2024 Hepatitis C virus Ab [Presence] in Serum [facility] Work Phone: Comment on above: Expected: 2023 (Approximate), Expi res: 12/10/2024 Start: 2023 End: 12-10-2024 HIV 1+2 Ab+HIV1 p24 Ag [Presence] in Serum or Plasma by Immunoassay [facility] Work Phone: Comment on above: Expected: 2023 (Approximate), Expi res: 12/10/2024 Start: 2023 End: 12-10-2024 Rubella virus IgG Ab [Units/volume] in Serum [facility] Service Area Work Phone: Comment on above: Expected: 2023 (Approximate), Expi res: 12/10/2024 Start: 2023 End: 12-10-2024 Treponema pallidum IgG+IgM Ab [Presence] in Serum by Immunoassay [facility] Work Phone: Comment on above: Expected: 2023 (Approximate), Expi res: 12/10/2024 Start: 2023 End: 12-10-2024 Varicella zoster virus IgG Ab [Presence] in Serum by Immunoassay [facility] Work Phone: Comment on above: Expected: 2023 (Approximate), Expi res: 12/10/2024 Start: 01-02-2023 COVID-19 Vaccine ( season) COVID-19 Vaccine ( season) [facility] Start: 12-21-2019 DTaP/Tdap/Td Vaccines (2 - Td or Tdap) DTaP/Tdap/Td Vaccines (2 - Td or Tdap) [facility] Start: 2018 Screening for malignant neoplasm of cervix [facility] Start: 2016 Hepatitis B Vaccines (1 of 3 - 19+ 3-dose series) Hepatitis B Vaccines (1 of 3 - 19+ 3-dose series) [facility] Start: 12-12-2015 Hepatitis C screening Hepatitis C Screening [facility] Start: 2012 HPV Vaccines (1 - 3-dose series) HPV Vaccines (1 - 3-dose series) [facility] Start: 03-14-2010 Varicella vaccination Varicella Vaccines (2 of 2 - 2-dose childhood series) [facility] Start: 01-17-2010 MMR Vaccines (1 of 1 - Standard series) MMR Vaccines (1 of 1 - Standard series) [facility] Start: 1997 HIV screening HIV Screening [facility] Start: 1997 Lipid panel Lipid Panel [facility] Start: 1997 Yearly Adult Physical Yearly Adult Physical [facility] Bacteria identified in Urine by Culture Urine culture Microbiology Routine Missed menses Ordered: 07/29/2024 [facility] Comment on above: Ordered: 07/29/2024 CBC W Auto Different ial panel - Blood CBC and differential Lab Routine Missed menses , unspecified gestational age Ordered: 07/29/2024 [facility] Comment on above: Ordered: 07/29/2024 CHLAMYDIA TRACHOMATI S (GENITO/STI) CHLAMYDIA TRACHOMATIS (GENITO/STI) Lab Routine STD exposure Ordered: 09/06/2024 [facility] Comment on above: Ordered: 09/06/2024 End: 02-23-2024 Choriogonadotropin ( test) [Presence] in Urine POCT , urine manually resulted Point of Care Testing Routine Once (Lab) for 1 Occurrences starting 02/23/2024 until 02/23/2024 [facility] Service Area Work Phone: Comment on above: Once (Lab) for 1 Occurrences starting until 02/23/2024 End: 03-22-2024 Choriogonadotropin ( test) [Presence] in Urine POCT , urine manually resulted Point of Care Testing Routine Once (Lab) for 1 Occurrences starting 03/22/2024 until 03/22/2024 [facility] Service Area Work Phone: Comment on above: Once (Lab) for 1 Occurrences starting until 03/22/2024 End: 06-13-2024 Choriogonadotropin ( test) [Presence] in Urine POCT , urine manually resulted Point of Care Testing Routine Once (Lab) for 1 Occurrences starting 06/13/2024 until 06/13/2024 [facility] Service Area Work Phone: Comment on above: Once (Lab) for 1 Occurrences starting until 06/13/2024 Cytology Cervical or vaginal smear or scraping study Pap Smear Pathology and Cytology Routine Well woman exam with routine gynecological exam Ordered: 01/14/2024 [facility] Work Phone: Comment on above: Ordered: 01/14/2024 Hemoglobin A1c/Hemoglobin.total in Blood Hemoglobin A1c Lab Routine Missed menses , unspecified gestational age Ordered: 07/29/2024 [facility] Comment on above: Ordered: 07/29/2024 Hepatitis B virus abrams rface Ag [Presence] in Serum or Plasma by Immunoassay Hepatitis B surface antigen Lab Routine Missed menses , unspecified gestational age Ordered: 07/29/2024 [facility] Comment on above: Ordered: 07/29/2024 Hepatitis C virus Ab [Presence] in Serum or Plasma by Immunoassay Hepatitis C antibody Lab Routine Missed menses , unspecified gestational age Ordered: 07/29/2024 [facility] Comment on above: Ordered: 07/29/2024 HIV-1/HIV-2 antigen/antibody combination immunoassay HIV-1 and HIV-2 antibodies Lab Routine Missed menses , unspecified gestational age Ordered: 07/29/2024 [facility] Comment on above: Ordered: 07/29/2024 Neisseria gonorrhoea e DNA [Presence] in Unspecified specimen by EDELMIRA with probe detection Neisseria gonorrhea DNA probe, direct Lab Routine STD exposure Ordered: 09/06/2024 [facility] Comment on above: Ordered: 09/06/2024 Reagin Ab [Presence] in Serum by RPR RPR Lab Routine Missed menses , unspecified gestational age Ordered: 07/29/2024 [facility] Comment on above: Ordered: 07/29/2024 KELSY US Pelvis Limite d Follicles - Follicle Studies Performed KELSY US Pelvis Limited Follicles - Follicle Studies Performed Imaging Routine Female infertility 02/16/2024 7:17 AM EDT [facility] Work Phone: KELSY US Pelvis Limite d Follicles - Follicle Studies Performed KELSY US Pelvis Limited Follicles - Follicle Studies Performed Imaging Routine Female infertility 02/20/2024 9:06 AM [facility] Work Phone: Rubella antibody, IgG Rubella an tibody, IgG Lab Routine Missed menses , unspecified gestational age Ordered: 07/29/2024 [facility] Comment on above: Ordered: 07/29/2024 SURESWAB(R) ADVANCED VAGINITIS PLUS, TMA SURESWAB(R) ADVANCED VAGINITIS PLUS, TMA Pathology and Cytology Routine STD exposure Ordered: 09/06/2024 [facility] Work Phone: Comment on above: Ordered: 09/06/2024 End: 01-28-2024 Surgical pathology study [facility] Work Phone: Comment on above: Once (Lab) for 1 Occurrences starting until 01/28/2024, 1 completed Once (Lab) for 1 Occ urrences starting 01/28/2024 until 01/28/2024 Immunizations Immunization Date Immunization Notes Care Provider Fa cili 12-20-2009 meningococcal ACWY vaccine, unspecified formulation Princess Dionte [facility] 12-20-2009 tetanus toxoid, reduced diphtheria toxoid, and acellular pertussis vaccine, adsorbed Princess Dionte [facility] 12-20-2009 varicella virus vaccine Princess Dionte [facility] NEGATED: Highlighted row has not occurred!04-06-2024 influenza virus vaccine, unspecified formulation Mallory Juventino [facility] NEGATED: Highlighted row has not occurred!06-26-2021 influenza virus vaccine, unspecified formulation Leigh Ann Covington [facility] NEGATED: Highlighted row has not occurred!06-26-2021 SARS-CoV-2 (COVID-19) Ad26 vaccine, recombinant Leigh Ann Adria [facility] NEGATED: Highlighted row has not occurred!01-29-2021 influenza virus vaccine, unspecified formulation Leigh Ann Covington [facility] NEGATED: Highlighted row has not occurred!01-29-2021 SARS-CoV-2 (COVID-19) Ad26 vaccine, recombinant Leigh Ann Adria [facility] NEGATED: Highlighted row has not occurred!05-03-2019 influenza virus vaccine, live, attenuated, for intranasal use Leigh Ann Covington [facility] NEGATED: Highlighted row has not occurred!09-30-2018 influenza virus vaccine, unspecified formulation Leigh Ann Covington [facility] Payers Date Payer Category Payer Managed Care (Private) [id number] [id number] 2022 Private Health Insurance [employer] [id number] 2022 Unknown [id number]. 1.13.647.2. [id number] 2022 Unknown [id number] 1997 Unknown [id number] 2.16.840.1.806486.3.579.2. 593 1997 Unknown [id number] 2.16.840.1.912662.3.579.2. 593 1997 Unknown [id number] 2.16.840.1.399417.3.579.2. 727 1997 Unknown [id number] 2.16.840.1.344106.3.579.2. 727 1997 Unknown [id number] 2.16.840.1.986414.3.579.2. 727 1997 Unknown [id number] 2.16.840.1.248753.3.579.2. 727 1997 Unknown [id number] 2.16.840.1.301318.3.579.2. 1242 1997 Unknown [id number] 2.16.840.1.075454.3.579.2. 1242 1997 Unknown [id number] 2.16.840.1.506042.3.579.2. 1242 1997 Unknown [id number] 2.16.840.1.341567.3.579.2. 1244 1997 Unknown [id number] 2.16840.1.720238.3.579.2. 1244 1997 Unknown [id number] 2.16840.1.923701.3.579.2. 1244 1997 Unknown [id number] 2.16840.1.617341.3.579.2. 1244 1997 Unknown [id number] 2.840.1.867667.3.579.2. 1244 1997 Unknown [id number] 2.840.1.360988.3.579.2. 1244 1997 Unknown [id number] 2.840.1.959875.3.579.2. 1244 1997 Unknown [id number] 2.840.1.322109.3.579.2. 1244 1997 Unknown [id number] 2.16840.1.168371.3.579.2. 1244 1997 Unknown [id number] 2.840.1.821509.3.579.2. 1244 1997 Unknown [id number] 2.16840.1.352213.3.579.2. 1244 1997 Unknown [id number] 2.16840.1.981374.3.579.2. 1244 1997 Unknown [id number] 2.16840.1.385371.3.579.2. 1244 1997 Unknown [id number] 2.16840.1.992383.3.579.2. 1244 1997 Unknown [id number] 2.16.840.1.467609.3.579.2. 1244 1997 Unknown [id number] 2.16.840.1.626121.3.579.2. 1244 1997 Unknown [id number] 2.16.840.1.575602.3.579.2. 1244 1997 Unknown [id number] 2.16.840.1.877607.3.579.2. 1244 1997 Unknown [id number] 2.16.840.1.829747.3.579.2. 1244 1997 Unknown [id number] 2.16.840.1.076768.3.579.2. 1244 1997 Unknown [id number] 2.840.1.572436.3.579.2. 1244 1997 Unknown [id number] 2.16840.1.287738.3.579.2. 1244 1997 Unknown [id number] 2.840.1.610377.3.579.2. 1244 1997 Unknown [id number] 2.840.1.810317.3.579.2. 1244 1997 Unknown [id number] 2.840.1.597017.3.579.2. 1244 1997 Unknown [id number] 2.16840.1.729707.3.579.2. 1244 1997 Unknown [id number] 2.16840.1.948764.3.579.2. 1244 1997 Unknown [id number] 2.16840.1.813106.3.579.2. 1244 1997 Unknown [id number] 2.16840.1.788012.3.579.2. 1244 1997 Unknown [id number] 2.16.840.1.781627.3.579.2. 1245 1997 Unknown [id number] 2.16.840.1.368696.3.579.2. 1244 1997 Unknown [id number] 2.16.840.1.186854.3.579.2. 124 1997 Unknown [id number] 2.16.840.1.261493.3.579.2. 124 1997 Unknown [id number] 2.16.840.1.113668.3.579.2. 124 1997 Unknown [id number] 2.16.840.1.251431.3.579.2. 1244 1997 Unknown [id number] 2.16.840.1.021906.3.579.2. 1244 1997 Unknown [id number] 2.16840.1.910279.3.579.2. 1244 1997 Unknown [id number] 2.16.840.1.502554.3.579.2. 1258 1997 Unknown [id number] 2.16.840.1.059460.3.579.2. 1258 1997 Unknown [id number] 2.16.840.1.939638.3.579.2. 1258 1997 Unknown [id number] 2.16.840.1.605133.3.579.2. 1258 1997 Unknown [id number] 2.16.840.1.919721.3.579.2. 125 1997 Unknown [id number] 2.16.840.1.065604.3.579.2. 1258 1997 Unknown [id number] 2.16.840.1.279051.3.579.2. 125 1997 Unknown [id number] 2.16.840.1.038900.3.579.2. 1259 1959 Unknown [id number] 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 Date Type Detail Facility Start: 07-24-2021 End: 03-05-2023 Tobacco smoking status Never smoked tobacco (finding) [facility] Tobacco smoking status Never [facility] Start: 01-14-2024 End: 01-28-2024 Sex Assigned At Female [facility] Start: 2023 Tobacco use and exposure Smokeless tobacco non-user [facility] Work Phone: Start: 01-28-2024 End: 06-23-2024 Alcoholic beverage intake Ex-drinker (finding) [facility] Work Phone: Start: 01-14-2024 End: 01-28-2024 History of Social function [facility] Work Phone: Start: 2023 Alcohol Comment Occassionally [facility] Work Phone: Start: 1997 Sex assigned at Not on file [facility] Work Phone: Start: 12-01-2023 End: 10-07-2024 Exposure to SARS-CoV-2 (event) Not sure [facility] Start: 02-23-2024 End: 11-08-2024 Alcoholic beverage intake Current drinker of alcohol (finding) [facility] Work Phone: Start: 03-05-2023 Alcohol Comment Beer 1-2 times per m [facility] Start: 12-18-2023 End: 12-28-2023 Exposure to SARS-CoV-2 (event) Unable to assess [facility] Start: 06-08-2024 [facility] Procedure Code Equipment Code Equipment Origin al Text Equipment Identifier Dates [id number] Start: 03-01-2024 End: 03-09-2024 Functional Status Date Assessment Result Facility 04-06-2024 Functional Status N/A [facility] 10-02-2023 Functional Status N/A [facility] 08-27-2023 Functional Status N/A [facility] 02-19-2023 Functional Status N/A [facility] Clinical Notes 07-24-2021 to 11-08-2024 ORION Sepnce - 11/08/2024 2:40 PM Nahomi Guerrero NP - 10/17/2024 1:00 PM ORION Tarango - 10/11/2024 2:40 PM ORION Tarango - 09/06/2024 2:50 PM EDTDischarge InstructionsPatient Instructions Note Date & Type Note Facility 11-08-2024 History of Present illness Narrative Reason for Appointment: Patient ID: Sydney Romero is a 28 y.o. female who presents for Routine Visit Patient presents today for Return OB appointment. MEDICATIONS Current Outpatient Medications Medication Instructions cephalexin (KEFLEX) 500 mg, 2 times daily cetirizine (ZYRTEC ALLERGY) 10 mg, Oral, Daily cyclobenzaprine (FLEXERIL) 5 mg, Oral, 3 times daily PRN famotidine (PEPCID) 20 mg, Oral, Daily hydrOXYzine pamoate (VISTARIL) 25 mg, Oral, Every 6 hours PRN methylPREDNISolone (Medrol Dospak) 4 MG tablets Day 1: 6 tablets Day 2: 5 tablets Day 3: 4 tablets Day 4: 3 tablets Day 5: 2 tablets Day 6: 1 tablet MV-Min-Fe Fum-FA-DHA ( 1 PO) 1 each, Daily ALLERGIES Allergies Allergen Reactions Azithromycin Unknown Other [...] reviewed. Vitals: Estimated body mass index is 35.59 kg/m as calculated from the following: Height as of 09/17/22: 5' 3 . Weight as of this encounter: 200 lb 14.4 oz. BP: 122/80 No LMP recorded. Patient is . ASSESSMENT & PLAN ICD-10-CM 1. Second trimester ([facility]) Z34.92 POCT urinalysis dipstick manually resulted 2. 26 weeks gestation of ([facility]) Z3A.26 POCT urinalysis dipstick manually resulted 3. Diabetes mellitus screening Z13.1 CBC Glucose tolerance, 1 hour CBC Glucose tolerance, 1 hour Return OB: Patient presents today for a routine obstetrics appointment. Patient is currently 23w6d . Patient states she is doing well but has complaints of being tired due to current . Orders Placed This Encounter Procedures CBC Glucose tolerance, 1 hour POCT urinalysis dipstick manually resulted Follow Up: Patient is to return to office in4 week for routine OB appointment. Documented by ORION Spence on behalf of: Layo Courtney DO documented in this encounter [facility] 10-17-2024 History of Present illness Narrative Reason for Appointment: Patient ID: Sydney Romero is a 28 y.o. female who presents for Routine Visit Patient presents today for Return OB appointment. MEDICATIONS Current Outpatient Medications Medication Instructions cephalexin (KEFLEX) 500 mg, 2 times daily cetirizine (ZYRTEC ALLERGY) 10 mg, Oral, Daily famotidine (PEPCID) 20 mg, Oral, Daily hydrOXYzine pamoate (VISTARIL) 25 mg, Oral, Every 6 hours PRN methylPREDNISolone (Medrol Dospak) 4 MG tablets Day 1: 6 tablets Day 2: 5 tablets Day 3: 4 tablets Day 4: 3 tablets Day 5: 2 tablets Day 6: 1 tablet MV-Min-Fe Fum-FA-DHA ( 1 PO) 1 each, Daily ALLERGIES Allergies Allergen Reactions Azithromycin Unknown Other [...] nursing note reviewed. Exam conducted with a email administrator present. Vitals: Estimated body mass index is 35.52 kg/m as calculated from the following: Height as of 09/17/22: 5' 3 . Weight as of this encounter: 200 lb 8 oz. BP: 126/82 No LMP recorded. Patient is . ASSESSMENT & PLAN ICD-10-CM 1. Second trimester ([facility]) Z34.92 POCT urinalysis dipstick manually resulted 2. 20 weeks gestation of ([facility]) Z3A.20 Return OB: Patient presents today for a routine obstetrics appointment. Patient is currently 20w5d . Patient states she is doing well but has complaints of being tired due to current . Patient has verbalizes frequent movement. labor precautions was discussed/given and patient was instructed to perform kick counts three times a day. Patient returns for evaluation today and has complaints of low back / right mid back pain. We will refer to Physical Therapy, begin Flexeril and patient will attempt to obtain a Belly Band for back relief. Orders Placed This Encounter Procedures POCT urinalysis dipstick manually resulted Follow Up: Patient is to return to office in 4 week for routine OB appointment. Documented by Maria M Guerrero NP on behalf of: Layo Courtney DO documented in this encounter [facility] 10-11-2024 History of Present illness Narrative Reason for Appointment: Patient ID: Sydney Romero is a 28 y.o. female who presents for Routine Visit Patient presents today for Return OB appointment. MEDICATIONS Current Outpatient Medications Medication Instructions cephalexin (KEFLEX) 500 mg, 2 times daily cetirizine (ZYRTEC ALLERGY) 10 mg, Oral, Daily famotidine (PEPCID) 20 mg, Oral, Daily hydrOXYzine pamoate (VISTARIL) 25 mg, Oral, Every 6 hours PRN methylPREDNISolone (Medrol Dospak) 4 MG tablets Day 1: 6 tablets Day 2: 5 tablets Day 3: 4 tablets Day 4: 3 tablets Day 5: 2 tablets Day 6: 1 tablet permethrin (Elimite) 5 % cream Topical, Once MV-Min-Fe Fum-FA-DHA ( 1 PO) 1 each, Daily ALLERGIES Allergies Allergen Reactions Azithromycin Unknown Other [...] Gastrointestinal: Negative. Genitourinary: Negative. Musculoskeletal: Negative. Skin: Positive for rash. Neurological: Negative. All other systems reviewed and [...] oriented to person, place, and time. Skin: Findings: Rash present. Comments: Dry pruitic papular rash, non infectious Psychiatric: Mood and Affect: Mood normal. Behavior: Behavior normal. Thought Content: Thought content normal. Judgment: Judgment normal. Vitals and nursing note reviewed. Vitals: Estimated body mass index is 35.22 kg/m as calculated from the following: Height as of 09/17/22: 5' 3 . Weight as of this encounter: 198 lb 12.8 oz. BP: 112/74 No LMP recorded. Patient is . ASSESSMENT & PLAN ICD-10-CM 1. Second trimester Z34.92 2. 19 weeks gestation of Z3A.19 3. Pruritus L29.9 Hepatitis C antibody Hepatic function panel TSH Bile acids, total CBC and differential hydrOXYzine pamoate (Vistaril) 25 MG capsule permethrin (Elimite) 5 % cream Hepatitis C antibody Hepatic function panel TSH Bile acids, total CBC and differential Return OB: Patient presents today for a routine obstetrics appointment. Patient is currently 19w6d . Patient states she is doing well but has complaints of being tired due to current . Patient has verbalizes frequent movement. Orders Placed This Encounter Procedures Hepatitis C antibody Hepatic function panel TSH Bile acids, total CBC and differential Patient had experienced rash, doing better but still has some itching. We will send in atarax and elemite cream, lab work to rule out cholestasis. No upper abdominal pain or fevers noted Follow Up: Patient is to return to office in 4 week for routine OB appointment. Documented by ORION pSence on behalf of: Layo Courtney DO documented in this encounter [facility] 09-06-2024 History of Present illness Narrative Reason [...] of: ORION Spence documented in this encounter [facility] 08-08-2024 History of Present illness [...] nursing note reviewed. Exam conducted with a email administrator present. Vitals: Estimated body mass index is [...] Layo Courtney DO documented in this encounter [facility] 07-29-2024 History of Present illness [...] screen, urine; Future Nurse Note: Patient declined [place] to one Pt is an IVF patient [...] or undercooked meat, and stay away from [facility]. Patient has also been advised to [...] Marilia Elder MA documented in this encounter [facility] 07-11-2024 History of Present illness [...] 07/11/2024 3:54 PM documented in this encounter [facility] Work Phone: 06-13-2024 History of Present [...] Preop diagnosis: Infertility Post op diagnosis: Same Computer Network Specialist: none Depth: 7 cm Curve: anterior Distance [...] 06/13/24 11:24 AM documented in this encounter [facility] Work Phone: 06-13-2024 Hospital Discharge instructions Tisha Sparks RN - 06/13/2024 10:43 AM EST Images from the original note were not included. [facility] [address] [place] [address] Home Going Instructions after Embryo Transfer: After [...] in : Advil, Motrin, Ibuprofen, Aleve, Excedrin, [place], Sudafed, and Pepto-Bismol. Avoid aspirin unless you [...] Sparks 10:43 AM documented in this encounter [facility] Work Phone: 06-06-2024 History of Present [...] until further instructed. Message sent to front end engineer to schedule at 8:45 slot at [facility] for US and labs. ZOE FRANCIS on 06/06/24 at 1:12 PM. documented in this encounter [facility] Work Phone: 04-06-2024 Hospital Discharge instructions [...] provider. Document Revised: 09/09/2021 Document Reviewed: 09/09/2021 [facility] Patient Education 2023 [facility] Follow Up Care 03/25/2024 14:07:23 With:Mallory Judd Address: When:Within 6 Month(s) [facility] 03-22-2024 History of Present illness Narrative Associated Order(s): Egg Retrieval Pre-Procedure Diagnose(s): Encounter for assisted reproductive fertility cycle Post-Procedure Diagnose(s): Encounter for assisted reproductive fertility cycle Patient ID: Sydney Romero is a 28 y.o. female. Egg Retrieval Date/Time: 03/22/2024 9:39 AM Performed by: Juan Chavarria MD Authorized by: Donya Abernathy APRN-MITER GRINDER OPERATOR Consent: Consent obtained: Verbal and written Consent [...] diagnosis: Female infertility Post op diagnosis: Same Computer Network Specialist: Dr. Warren IV Fluids: 600 cc EBL: 5 cc UOP: Not recorded Specimen: Oocytes Complications: None Number of Oocytes right ovary: 16 Ovarian access (right): Easy Number of Oocytes left ovary: 9 Ovarian access (left): Easy Endometrial thickness: n/a Needle type: Single Additional notes: documented in this encounter [facility] Work Phone: 03-22-2024 Nurse Note Patient discharged to home in stable condition via wheelchair to RIDE HOME: Partner's car. Accompanied by RN. MOIS at time of discharge. Discharge instructions given and concerns addressed. Gisell Michel RN 03/22/24 11:08 AM [facility] Work Phone: 03-22-2024 Nurse Note Patient discharged to home in stable condition via wheelchair to RIDE HOME: Partner's car. Accompanied by RN. MOIS at time of discharge. Discharge instructions given and concerns addressed. Gisell Michel RN 03/22/24 11:08 AM documented in this encounter [facility] Work Phone: 03-22-2024 Hospital Discharge instructions Gisell Michel RN - 03/22/2024 8:45 AM EST Images from the original note were not included. [facility] [address] [place] [id number] Home Going Instructions after Egg Retrieval: Activity: [...] 2 weeks following your oocyte retrieval. Call [phone] to speak with a Physician or Nurse if you have any concerns. Gisell Michle 8:45 AM [facility] [address]. [place], [place] IVF LAB EMBRYO UPDATE PROTOCOL The [...] number of embryos biopsied and frozen. Gisell Michel 8:44 AM [facility] [address] [place] [address] Frozen Embryo Transfer Instructions After your egg retrieval, follow up with your IVF nurse within 3-4 days Thursday-Thursday regarding the plan for your frozen embryo transfer (FET) cycle. Your IVF nurse will order and review with you the medications you will be using for the cycle. You will be sent an email from [employer] to fill out your Frozen Embryo Treatment [...] RN 8:44 AM documented in this encounter [facility] Work Phone: 03-20-2024 History of Present [...] Arrive 60 minutes prior to procedure at [place] [address]. Patient verbalizes understanding of plan and location of procedure. Patient scheduled to go to [facility] tomorrow for post trigger labs Krissy Yanes 03/20/2024 11:01 AM documented in this encounter [facility] Work Phone: 03-19-2024 History of Present illness Narrative CYCLING NOTE - IVF Cycle #: 2 (Has 3 embryos frozen from 1st cycle) Reason For Treatment: Male Infertility Protocol: OCP lead, Antagonist 225/75 ---> 175/75 Day of stim: 8th day of meds Patient Hx: 28 year old, AMH = 1.94. Patient of Dr. hCavarria Notes: Antagonist started on 03/16 Here for [...] 03/19/24 11:02 AM documented in this encounter [facility] Work Phone: 03-17-2024 History of Present [...] 03/17/24 1:04 PM documented in this encounter [facility] Work Phone: 03-15-2024 History of Present [...] no further questions. Transferred to the front end engineer to schedule appt for 03/17. Allyssa Robles 03/15/24 1:27 PM documented in this encounter [facility] Work Phone: 03-09-2024 History of Present [...] Yes; PGT-M Test Ready: No ; Company: [employer] PGT order scanned into [employer], confirmed by: LORI on Plan to freeze: [...] on 03/09 by delano On site at [facility] Additional details: Allyssa Robles 03/09/2024 7:50 AM TC to pt to confirm today's plan; LM; will send MC message. Allyssa Robles 03/09/24 2:02 PM Pt called back to confirm plan; Pt has all meds and all questions answered. She plans to purchase FET meds before the end of the year (they were ordered back in February) and will call [facility] to have them filled as she has met deductible and REECE needs a PA. Allyssa Robles 03/09/24 2:33 PM documented in this encounter [facility] Work Phone: 02-23-2024 Nurse Note Patient discharged to home in stable condition via wheelchair accompanied by this RN to RIDE HOME: Partner's car. Discharge instructions given and concerns addressed. Patient verbalizes understanding of all information provided and is agreeable. [facility] 02-23-2024 Nurse Note Patient discharged to home in stable condition via wheelchair accompanied by this RN to RIDE HOME: Partner's car. Discharge instructions given and concerns addressed. Patient verbalizes understanding of all information provided and is agreeable. Patient up to bathroom independently, no complaints of pain or dizziness, able to void without issue, reports scant amount of bleeding. documented in this encounter [facility] Work Phone: 02-23-2024 Nurse Note Patient up to bathroom independently, no complaints of pain or dizziness, able to void without issue, reports scant amount of bleeding. [facility] Work Phone: 02-23-2024 History of Present [...] diagnosis: Female infertility Post op diagnosis: Same Computer Network Specialist: none IV Fluids: 500 cc EBL: 5 cc UOP: Not recorded Specimen: Oocytes Complications: None Number of Oocytes right ovary: 17 Ovarian acc ss (right): Easy Number of Oocytes left ovary: 13 Ovarian access (left): Easy Endometrial thickness: n/a Needle type: Single Additional notes: documented in this encounter [facility] Work Phone: 02-23-2024 Hospital Discharge instructions Donya Rosas RN - 02/23/2024 7:23 AM EDT Images from the original note were not included. [facility] [address] [place] [address] Home Going Instructions after Egg Retrieval: Activity: [...] 2 weeks following your oocyte retrieval. Call [phone] to speak with a Physician or Nurse if you have any concerns. DONYA ROSAS 7:23 AM [facility] [address] [place], [place] IVF LAB EMBRYO UPDATE PROTOCOL The [...] biopsied and frozen. DONYA ROSAS 7:23 AM [facility] [address] [place], [place] IVF LAB EMBRYO UPDATE PROTOCOL The [...] biopsied and frozen. DONYA ROSAS 7:23 AM [facility] [address] [place] [address] Frozen Embryo Transfer Instructions After your egg retrieval, follow up with your IVF nurse within 3-4 days Thursday-Thursday regarding the plan for your frozen embryo transfer (FET) cycle. Your IVF nurse will order and review with you the medications you will be using for the cycle. You will be sent an email from [employer] to fill out your Frozen Embryo Treatment [...] RN 7:32 AM documented in this encounter [facility] Work Phone: 02-21-2024 History of Present [...] 02/21/2024 9:09 AM documented in this encounter [facility] Work Phone: 02-20-2024 History of Present [...] Beth Judge RN documented in this encounter [facility] Work Phone: 02-18-2024 History of Present [...] Beth Judge RN documented in this encounter [facility] Work Phone: 02-16-2024 History of Present [...] Will look into getting insulin syringes from [facility]. Team will contact patient later today with results and plan. Krissy Yanes 02/16/2024 7:27 AM LM with patient with plan to start Cetrotide today, drop FSH to 225 units and continue Menopur 75 units. Patient is already scheduled for 02/17 for repeat follicle scan and e2. Krissy Yanes 02/16/24 1:34 PM documented in this encounter [facility] Work Phone: 02-09-2024 History of Present illness Narrative FELI NOTE [...] Yes; PGT-M Test Ready: No /A; Company: [employer] PGT order scanned into [employer], confirmed by: LORI on 02/09/2024 Plan to freeze: embryos [employer] forms/out waiver complete: Yes Does patient have medications onhand? Yes Pharmacy: [facility] Boarding pass signed off: Yes LORETTA on 02/05/2024 Date of Female STDs: 2023 Date of Male STDs: 2023 Medically complex on boarding pass: no If indicated, is PAT consult complete? N/A SPERM: [facility] [employer] with [employer]zen Backup Number of vials confirmed: 1 on 02/09/24 by LORETTA Additional details: Allyssa Robles 02/09/2024 7:34 AM Beti Mason 02/09/24 12:44 PM TC to inge Degroot answered; confirmed plan for meds to start on 02/12 as per calendar and return on 02/15 as scheduled; no further questions. Allyssa Robles 02/09/24 1:16 PM documented in this encounter [facility] Work Phone: 01-28-2024 Nurse Note Patient discharged to home in stable condition via wheelchair to RIDE HOME: Partner's car. Discharge instructions given and concerns addressed. [facility] Work Phone: 01-28-2024 Nurse Note Patient discharged to home in stable condition via wheelchair to RIDE HOME: Partner's car. Discharge instructions given and concerns addressed. documented in this encounter [facility] Work Phone: 01-28-2024 History of Present [...] no immediate complications documented in this encounter [facility] Work Phone: 01-28-2024 Hospital Discharge instructions Ira Lopez RN - 01/28/2024 8:20 AM EDT Images from the original note were not included. [facility] [address] [place] [id number] Home Going Instructions after Polypectomy: Activity: We [...] Lopez 8:20 AM documented in this encounter [facility] Work Phone: 01-14-2024 History of Present [...] nursing note reviewed. Exam conducted with a email administrator present. Vitals: Estimated body mass index is [...] of: ORION Spence documented in this encounter [facility] 12-28-2023 History of Present illness [...] EVALUATION / TREATMENT Saw KELSY physician in [facility] Dr. Vergara Was told needed IVF, oligospermia Hysterosalpingogram: 2023, bilateral tubal patency Saline Infused Sonography: 07/2023, normal uterine cavity small uterine polyp noted (not removed as of yet) [employer] WORK[employer] Pelvic Ultrasound: 07/2023 AMH 2.01 Relationship Status: x 2 years OB Hx G0 OB History 0 Para 0 Term 0 0 AB 0 Living 0 SAB 0 IAB 0 Ectopic 0 Multiple 0 Live Births 0 [employer] WORK[employer] HISTORY History of STD or PID: No [...] 12/28/2023 10:39 AM documented in this encounter [facility] Work Phone: 2023 History of Present illness Narrative Visit Type: In Person NEW FERTILITY PATIENT VISIT Referred by: insurance referral Accompanied today by: spouse Sydney Romero is a 27 y.o. female who presents with Infertility TTC x 2 years PRIOR EVALUATION / TREATMENT Saw KELSY physician in [facility] Dr. 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 Meyer [phone] Recommend repeat SA with 48-72 hours abstinence Recommend Female Vitamins: vitamin Vitamin D (total of 2,000 international units daily) CoQ10 600 mg daily Routine Testing [facility] STDs Within 1 year Genetic carrier Waiver/Completed T&S Within 1 year AMH Within 1 year TSH Within 1 year Rubella/Varicella Within 5 years BMI Testing [facility] CBC Within 1 year CMP Within [...] < 18 or > 40: No NA Completion: Ectopic Risk: No Medically Complex: No Trish Thorpe 2023 8:52 AM documented in this encounter [facility] Work Phone: 2023 Instructions SMITH Mina - 2023 8:45 AM EDT Recommend Male Vitamins Discussed as follows: Co-Q10 200 mg daily L-Carnitine 200-500 mg daily Vitamin C 500 mg daily Recommend Consult with Dr. Meyer [phone] Recommend repeat SA with 48-72 hours abstinence Recommend Female Vitamins: vitamin Vitamin D (total of 2,000 international units daily) CoQ10 600 mg daily documented in this encounter [facility] Work Phone: 10-02-2023 Hospital Discharge instructions [...] ?Hypothyroidism. ?Polycystic ovarian syndrome (PCOS). ?Binge-eating disorder. ?[place] syndrome. Taking certain medicines, such as steroids, [...] food choices, such as grocery stores and [employer]. What are the signs or symptoms? The [...] and how much exercise you get. Take delk-non-meyvyfw and prescription medicines only as told by [...] provider. Document Revised: 11/26/2021 Document Reviewed: 11/26/2021 [employer] Patient Education 2022 [employer]. 10/02/2023 12:54:15 BMI for Adults BMI for [...] numbers. This can be done either in [place] ([place] or metric measurements. Note that charts and online BMI calculators are available to help you find your BMI quickly and easily without having to do these calculations yourself. To calculate your BMI in [place] ([place] measurements: 1.Measure your weight in pounds [...] Centers for Disease Control and Prevention: www.cdc.gov Scottish Heart Association: www.heart.org National Heart, Lung, and Blood [place]: www.nhlbi.nih.gov Summary Body mass index (BMI) is a number that is calculated from a person's weight and height. BMI may help estimate how much of a person's weight is composed of fat. BMI can help identify those who may be at higher risk for certain medical problems. BMI can be measured using [place] measurements or metric measurements. BMI charts are used to identify whether you are underweight, normal weight, overweight, or obese. This information is not intended to replace advice given to you by your health care provider. Make sure you discuss any questions you have with your health care provider. Document Revised: 01/11/2020 Document Reviewed: 11/18/2019 FN[employer] Patient Education 2022 [employer] 10/02/2023 12:54:13 Migraine Headache Migraine Headache A [...] Follow these instructions at home: Medicines Take bxru-hwb-hlzzooi and prescription medicines only as told by your health care provider. Ask your health care provider if the medicine prescribed to you: ?Requires you to avoid driving or using heavy machinery. ?Can cause constipation. You may need to take these actions to prevent or treat constipation: ?Drink enough fluid to keep your urine pale yellow. ?Take rdnh-cur-hegdhah or prescription medicines. ?Eat foods that are [...] provider. Document Revised: 08/12/2019 Document Reviewed: 06/02/2019 [employer] Patient Education 2022 [employer] 10/02/2023 12:54:11 Form - Headache Record [...] provider. Document Revised: 09/18/2021 Document Reviewed: 09/18/2021 [employer] Patient Education 2022 [employer] 10/02/2023 12:54:08 Eczema Eczema Eczema refers [...] these instructions at home: Take or apply wesb-lot-qhxfjvk and prescription medicines only as told by your health care provider. Use creams or ointments to moisturize your skin. Do not use lotions. Learn what triggers or irritates your symptoms so you can avoid these things. Treat symptom flare-ups quickly. Do not scratch your skin. This can make your rash worse. Keep all follow-up visits. This is important. Where to find more information [employer] Academy of Dermatology: aad.org National Eczema Association: [...] provider. Document Revised: 01/28/2021 Document Reviewed: 01/28/2021 [employer] Patient Education 2022 U[employer]lication. 10/02/2023 12:54:06 BMI for Adults BMI for [...] numbers. This can be done either in [place] ([place] or metric measurements. Note that charts and online BMI calculators are available to help you find your BMI quickly and easily without having to do these calculations yourself. To calculate your BMI in [place] ([place] measurements: 1.Measure your weight in pounds [...] Centers for Disease Control and Prevention: www.cdc.gov Scottish Heart Association: www.heart.org National Heart, Lung, and Blood [place]: www.nhlbi.nih.gov Summary Body mass index (BMI) is a number that is calculated from a person's weight and height. BMI may help estimate how much of a person's weight is composed of fat. BMI can help identify those who may be at higher risk for certain medical problems. BMI can be measured using [place] measurements or metric measurements. BMI charts are used to identify whether you are underweight, normal weight, overweight, or obese. This information is not intended to replace advice given to you by your health care provider. Make sure you discuss any questions you have with your health care provider. Document Revised: 01/11/2020 Document Reviewed: 11/18/2019 FN[employer] Patient Education 2022 Upplication. Follow Up Care 09/22/2023 13:18:17 With:Dionte MARI, TIARA Martinez, [facility] Address: [address] [place] [address] [facility] (1) When:07/08/2023 Comments:for f/u [facility] 08-27-2023 Hospital Discharge instructions [...] 1.Identify the foods that contain carbohydrates: Rice. [place]. Milk. Strawberries. 2.Calculate how many servings you [...] and snacks. Where to find more information Scottish Diabetes Association: diabetes.org Centers for Disease Control [...] provider. Document Revised: 11/21/2020 Document Reviewed: 11/21/2020 [employer] Patient Education 2022 [employer]lication. 08/27/2023 19:11:56 Calorie Counting for Weight Loss [...] provider. Document Revised: 05/31/2020 Document Reviewed: 05/31/2020 [employer] Patient Education 2022 U[employer]lication. 08/27/2023 19:11:54 Exercising to Lose Weight Exercising [...] your health care provider or diet and dairy nutritionist (dietitian). This may include: ?Eating fewer [...] provider. Document Revised: 06/16/2021 Document Reviewed: 06/16/2021 [employer] Patient Education 2022 U[employer]lication. 08/27/2023 19:11:53 BMI for Adults BMI for [...] numbers. This can be done either in [place] or metric measurements. Note that charts and online BMI calculators are available to help you find your BMI quickly and easily without having to do these calculations yourself. To calculate your BMI in [place] ([place] measurements: 1.Measure your weight in pounds [...] Centers for Disease Control and Prevention: www.cdc.gov Scottish Heart Association: www.heart.org National Heart, Lung, and Blood [place]: www.nhlbi.nih.gov Summary Body mass index (BMI) is a number that is calculated from a person's weight and height. BMI may help estimate how much of a person's weight is composed of fat. BMI can help identify those who may be at higher risk for certain medical problems. BMI can be measured using [place] measurements or metric measurements. BMI charts are used to identify whether you are underweight, normal weight, overweight, or obese. This information is not intended to replace advice given to you by your health care provider. Make sure you discuss any questions you have with your health care provider. Document Revised: 01/11/2020 Document Reviewed: 11/18/2019 [employer] Patient Education 2022 Upplication. 08/27/2023 19:11:48 Musculoskeletal Pain Musculoskeletal Pain Musculoskeletal [...] mouth or applied to the skin. Take krie-itc-xlxadxo and prescription medicines only as told by [...] provider. Document Revised: 08/23/2020 Document Reviewed: 08/01/2020 [employer] Patient Education 2022 [employer] 08/27/2023 19:05:09 Cervicogenic Headache Cervicogenic Headache [...] includes your primary health care provider, a silk screen painter, a neurologist, and a physical therapist. Follow these instructions at home: Take qzgw-aek-ypbwyke and prescription medicines only as told by [...] includes your primary health care provider, a silk screen painter, a neurologist, and a physical therapist. This information is not intended to replace advice given to you by your health care provider. Make sure you discuss any questions you have with your health care provider. Document Revised: 10/24/2021 Document Reviewed: 10/24/2021 Elsevier Patient Education 2022 [employer] 08/27/2023 19:05:07 Form - Headache Record [...] provider. Document Revised: 09/18/2021 Document Reviewed: 09/18/2021 [employer] Patient Education 2022 [employer]. 08/27/2023 19:05:07 Chronic Migraine Headache Chronic [...] Follow these instructions at home: Medicines Take vsqj-uov-rivsmnw and prescription medicines only as told by [...] for Headache and Migraine Patients (CHAMP): headachemigraine.org Scottish Migraine Foundation: americanmigrainefoundation.org National Headache Foundation: headaches.org [...] provider. Document Revised: 06/06/2020 Document Reviewed: 06/06/2020 [employer] Patient Education 2022 Upplication. 08/27/2023 19:05:03 BMI for Adults BMI for [...] numbers. This can be done either in [place] ([place] or metric measurements. Note that charts and online BMI calculators are available to help you find your BMI quickly and easily without having to do these calculations yourself. To calculate your BMI in [place] ([place] measurements: 1.Measure your weight in pounds [...] Centers for Disease Control and Prevention: www.cdc.gov Scottish Heart Association: www.heart.org National Heart, Lung, and Blood [place]: www.nhlbi.nih.gov Summary Body mass index (BMI) is a number that is calculated from a person's weight and height. BMI may help estimate how much of a person's weight is composed of fat. BMI can help identify those who may be at higher risk for certain medical problems. BMI can be measured using [place] measurements or metric measurements. BMI charts are used to identify whether you are underweight, normal weight, overweight, or obese. This information is not intended to replace advice given to you by your health care provider. Make sure you discuss any questions you have with your health care provider. Document Revised: 01/11/2020 Document Reviewed: 11/18/2019 FNZ Patient Education 2022 Upplication. 08/27/2023 19:05:01 Health Maintenance, Female Health Maintenance, [...] provider. Document Revised: 09/09/2021 Document Reviewed: 09/09/2021 FNZ Patient Education 2022 Upplication. Follow Up Care 08/17/2023 08:42:02 With:Princess Dumont FAM, [facility] Address: [address] [place] [address] [place] [address]- When:Within 6 Week(s) Comments:weight loss and headaches [facility] 02-19-2023 Evaluation + Plan note Future Scheduled TestsU Protein/Creat Ratio 02/19/23HgbA1c 02/19/23Microalbumin Level Urine 02/19/23TSH With T4fr Reflex 02/19/23Vitamin D 25 Hydroxy 02/19/23CBC w/ Auto Diff 02/19/23Comprehensive Metabolic Panel 02/19/23Lipid Panel 02/19/23XR Spine Cervical 4 or 5 Views 02/19/23 [facility] 02-19-2023 Hospital Discharge instructions [...] includes your primary health care provider, a silk screen painter, a neurologist, and a physical therapist. Follow these instructions at home: Take nuzd-ldg-bjugdjg and prescription medicines only as told by [...] includes your primary health care provider, a silk screen painter, a neurologist, and a physical therapist. This information is not intended to replace advice given to you by your health care provider. Make sure you discuss any questions you have with your health care provider. Document Revised: 10/24/2021 Document Reviewed: 10/24/2021 FNZ Patient Education 2022 U[employer]lication. 02/19/2023 08:34:09 Migraine Headache Migraine Headache A [...] Follow these instructions at home: Medicines Take ktew-eqa-ljbfrep and prescription medicines only as told by your health care provider. Ask your health care provider if the medicine prescribed to you: ?Requires you to avoid driving or using heavy machinery. ?Can cause constipation. You may need to take these actions to prevent or treat constipation: ?Drink enough fluid to keep your urine pale yellow. ?Take beei-tsc-jcenbzz or prescription medicines. ?Eat foods that are [...] provider. Document Revised: 08/12/2019 Document Reviewed: 06/02/2019 FNZ Patient Education 2022 U[employer]lication. 02/19/2023 08:34:03 Form - Headache Record Form [...] provider. Document Revised: 09/18/2021 Document Reviewed: 09/18/2021 FNZ Patient Education 2022 [employer] Inc. 02/19/2023 01:02:45 General Headache Without Cause [...] help with your condition: Managing pain Take qtft-mci-eawfofo and prescription medicines only as told by [...] right away. Call your local emergency services (061 in the [place] Do not drive yourself [...] provider. Document Revised: 09/18/2021 Document Reviewed: 09/18/2021 FNZ Patient Education 2022 [employer]. 02/19/2023 01:02:42 Form - Headache Record [...] Elsevier Patient Education 2022 Elsevier Inc. 02/19/2023 01:02:37 Cervicogenic Headache Cervicogenic Headache [...] includes your primary health care provider, a silk screen painter, a neurologist, and a physical therapist. Follow these instructions at home: Take abrz-lwy-fcdnxvn and prescription medicines only as told by [...] includes your primary health care provider, a silk screen painter, a neurologist, and a physical therapist. This information is not intended to replace advice given to you by your health care provider. Make sure you discuss any questions you have with your health care provider. Document Revised: 10/24/2021 Document Reviewed: 10/24/2021 FNZ Patient Education 2022 Upplication. 02/19/2023 01:02:35 Chronic Migraine Headache Chronic Migraine [...] Follow these instructions at home: Medicines Take kgos-wzi-yanbobp and prescription medicines only as told by [...] for Headache and Migraine Patients (CHAMP): headachemigraine.org Scottish Migraine Foundation: americanmigrainefoundation.org National Headache Foundation: headaches.org [...] provider. Document Revised: 06/06/2020 Document Reviewed: 06/06/2020 [employer] Patient Education 2022 Upplication. Follow Up Care 02/17/2023 08:10:14 With:Princess Dumont FAM, MED Address: [address], [address] [address] When:Within 1 Month(s) Comments:headaches. neck pain With:Princess Dumont FAM, MED Address: [address], [address] [facility] [address] [place] [address]- When:Within 1 Year(s) Comments:annual wellness, anxiety/ depression [facility] 07-24-2021 Hospital Discharge instructions [...] height. This can be done either in [place] or metric measurements. Note that charts are available to help you find your BMI quickly and easily without having to do these calculations yourself. To calculate your BMI in [place] measurements, your health care provider will: [...] medical problems. BMI can be measured using [place] measurements or metric measurements. To interpret your [...] 12/30/2004 Document Revised: 04/02/2018 Document Reviewed: 03/03/2018 [employer] Patient Education 2020 Upplication. 07/24/2021 17:16:58 Health Maintenance, Female Health Maintenance, [...] 11/03/2011 Document Revised: 04/13/2019 Document Reviewed: 04/13/2019 [employer] Patient Education 2020 Upplication. Follow Up Care 06/26/2021 18:00:45 With:Leigh Ann Covington CNP Address: When: only if needed [facility] Evaluation + Plan note Future Appointments Appointment Date:10/03/2021 01:00:00 PM Scheduled Provider:Naya ABDI Location:[facility] Appointment Type: JOANN [facility] Evaluation + Plan note Future Appointments Appointment Date:03/25/2023 07:00:00 AM Scheduled Provider:Princess Dumont Location:[facility] Appointment Type:FM Open Future Scheduled TestsU Protein/Creat Ratio 02/19/23HgbA1c 02/19/23Microalbumin Level Urine 02/19/23TSH With T4fr Reflex 02/19/23Vitamin D 25 Hydroxy 02/19/23CBC w/ Auto Diff 02/19/23Comprehensive Metabolic Panel 02/19/23Lipid Panel 02/19/23XR Spine Cervical 4 or 5 Views 02/19/23 [facility] Evaluation + Plan note Future Appointments Appointment Date:10/21/2023 07:20:00 AM Scheduled Provider:Princess Dumont Location:[facility] Appointment Type:FM Open Future Scheduled TestsTSH With T4fr Reflex 02/19/23Vitamin D 25 Hydroxy 02/19/23CBC w/ Auto Diff 02/19/23Comprehensive Metabolic Panel 02/19/23Lipid Panel 02/19/23XR Spine Cervical 4 or 5 Views 02/19/23 [facility] Evaluation + Plan note Future Appointments Appointment Date:10/05/2024 07:00:00 AM Scheduled Provider:Mallory Judd Location:[facility] Appointment Type: Open [facility] Evaluation note Diagnosis Endometrial polyp Polyp of corpus uteri documented in this encounter [facility] Work Phone: Evaluation note* Diagnosis Pre-procedure lab exam Pre-procedural laboratory examination Female infertility Female infertility of unspecified origin documented in this encounter [facility] Work Phone: Evaluation note* Diagnosis Female infertility Female infertility of unspecified origin documented in this encounter [facility] Work Phone: Evaluation note* Diagnosis Female infertility Female infertility of unspecified origin documented in this encounter [facility] Work Phone: Evaluation note* Diagnosis Encounter for assisted reproductive fertility cycle Encounter for assisted reproductive fertility procedure cycle documented in this encounter [facility] Work Phone: Evaluation note* Diagnosis Female infertility Female infertility of unspecified origin Pre-procedure lab exam Pre-procedural laboratory examination documented in this encounter [facility] Work Phone: [phone] note* Diagnosis Female infertility Female infertility of unspecified origin documented in this encounter [facility] Work Phone: [phone] note* Diagnosis Female infertility Female infertility of unspecified origin documented in this encounter [facility] Work Phone: [phone] note* Diagnosis Female infertility Female infertility of unspecified origin documented in this encounter [facility] Work Phone: [phone] note* Diagnosis Encounter for assisted reproductive fertility cycle Encounter for assisted reproductive fertility procedure cycle documented in this encounter [facility] Work Phone: [phone] note* Diagnosis Encounter for assisted reproductive fertility cycle Encounter for assisted reproductive fertility procedure cycle documented in this encounter [facility] Work Phone: [phone] note* Diagnosis Well woman exam with routine gynecological exam Routine gynecological examination documented in this encounter [facility] HealthcareEvaluation note* Diagnosis Encounter for screening for other viral diseases- Primary Encounter for Rh blood typing Encounter for blood typing Screening for STDs (sexually transmitted diseases) Screening examination for venereal disease Genetic screening Other genetic screening Fertility testing Female infertility associated with male factors Female infertility of other specified origin documented in this encounter [facility] Work Phone: [phone] note* Diagnosis Fertility testing [Z31.41]- Primary Fertility testing 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 [Z31.81, N97.8] documented in this encounter [facility] Work Phone: [phone] note* Diagnosis Endometrial polyp Polyp of corpus uteri documented in this encounter [facility] Work Phone: [phone] note* Diagnosis Female infertility Female infertility of unspecified origin documented in this encounter [facility] Work Phone: [phone] note* Diagnosis Encounter for assisted reproductive fertility cycle Encounter for assisted reproductive fertility procedure cycle documented in this encounter [facility] Work Phone: [phone] note* Diagnosis Encounter for assisted reproductive fertility cycle Encounter for assisted reproductive fertility procedure cycle Encounter for test, result unknown documented in this encounter [facility] Work Phone: Evaluation note* Diagnosis Encounter to determine viability of , single or unspecified fetus documented in this encounter [facility] Work Phone: Evaluation note* Diagnosis Missed menses 9 weeks gestation of , unspecified gestational age Encounter for supervision of normal first in first trimester documented in this encounter [facility] HealthcareEvaluation note* Diagnosis 10 weeks gestation of First trimester state, incidental [facility]* Diagnosis STD exposure Second trimester state, incidental 14 weeks gestation of Screening, , for anatomic survey Encounter for anatomic survey documented in this encounter [facility] HealthcareEvaluation note* Diagnosis (HHS-HCC) documented in this encounter [facility] Work Phone: Evaluation note* Diagnosis Second trimester state, incidental 19 weeks gestation of Pruritus Unspecified pruritic disorder documented in this encounter [facility] HealthcareEvaluation note* Diagnosis Acute bilateral low back pain without sciatica- Primary Second trimester (HHS-HCC) state, incidental 20 weeks gestation of (HHS-HCC) [facility]* Diagnosis Second trimester (HHS-HCC) state, incidental 26 weeks gestation of (HHS-HCC) Diabetes mellitus screening Screening for diabetes mellitus documented in this encounter [facility] HealthcareHospital course Narrative No data available for this section [facility] Hospital Discharge instructions No data available for this section [facility] Progress note No data available for this section [facility] Reason for referral (narrative)* Consultation (Routine) - Authorized Specialty Diagnoses / Procedures Referred By Alejandro hyatt Referred To Contact Genetics Diagnoses Genetic screening Trish Thorpe, SALES FLOOR MANAGER-MITER GRINDER OPERATOR [address] [id number] Referral ID Status Reason Start Date Expiration Date Visits Requested Visits Authorized [id number] Authorized Specialty Services Required 2023 12/10/2024 1 1 [facility] Work Phone: reason for visit Narrative* Imaging (Routine) - Authorized Specialty Diagnoses / Procedures Referred By Contac t Referred To Contact Radiology Diagnoses Female infertility Procedures KELSY US Pelvis Limited Follicles - Follicle Studies Performed America Quintanilla APRN-MITER GRINDER OPERATOR [address] [place] [address] Phone: tel: fax: Referral ID Status Reason Start Date Expiration Date Visits Requested Visits Authorized [id number] Authorized Perform Procedure 02/02/2024 02/01/2025 8 8 [facility] Work Phone: reason for visit Narrative* Imaging (Routine) - Pending Review Specialty Diagnoses / Procedures Referred By Contac t Referred To Contact Radiology Diagnoses Female infertility Procedures KELSY US Pelvis Limited Follicles - Follicle Studies Performed America Quintanilla APRN-MITER GRINDER OPERATOR [address] [place] [address] Phone: tel: fax: Referral ID Status Reason Start Date Expiration Date Visits Requested Visits Authorized [id number] Pending Review Perform Procedure 02/02/2024 02/01/2025 8 8 [facility] Work Phone: reason for visit Narrative* Procedure (Routine) - Authorized Specialty Diagnoses / Procedures Referred By Contac t Referred To Contact Reproductive Endocrinology and Infertility Diagnoses Encounter for assisted reproductive fertility cycle Procedures Egg Retrieval WY FOLLICLE PUNCTURE OOCYTE RETRIEVAL ANY METHOD CHG US GUIDANCE ASPIRATION OVA IMG S&I CHG OOCYTE ID FROM FOLLICULAR FLU CHG BX OOCYTE POLR BDY/AMBER BLST MICROTQ <= 5 AMBER CHG BX OOCYTE MICROTQ >5 AMBER CHG UNLISTED MOLECULAR PATHOLOGY PROCEDURE CHG CYTOGENETICS&MOLEC CYTOGENETICS INTERP&REP Beth Warren MD [address] [place] [address] Phone: tel: fax: Referral ID Status Reason Start Date Expiration Date V isits Requested Visits Authorized [id number] Authorized 01/27/2024 01/26/2025 1 1 [facility] Work Phone: reason for visit Narrative* Imaging (Routine) - Authorized Specialty Diagnoses / Procedures Referred By Alejandro t Referred To Contact Radiology Diagnoses Female infertility Procedures KELSY US Pelvis Limited Follicles - Follicle Studies Performed Donya Abernathy, SALES FLOOR MANAGER-MITER GRINDER OPERATOR [address] [facility], [place] [address] Phone: tel: fax: Referral ID Status Reason Start Date Expiration Date Visits Requested Visits Authorized [id number] Authorized Perform Procedure 03/01/2025 8 8 [facility] Work Phone: reason for visit Narrative* Procedure (Routine) - Authorized Specialty Diagnoses / Procedures Referred By Alejandro hyatt Referred To Contact Reproductive Endocrinology and Infertility Diagnoses Encounter for assisted reproductive fertility cycle Procedures Egg Retrieval WY FOLLICLE PUNCTURE OOCYTE RETRIEVAL ANY METHOD CHG US GUIDANCE ASPIRATION OVA IMG S&I CHG OOCYTE ID FROM FOLLICULAR FLU CHG BX OOCYTE POLR BDY/AMBER BLST MICROTQ <= 5 AMBER CHG BX OOCYTE MICROTQ >5 AMBER CHG UNLISTED MOLECULAR PATHOLOGY PROCEDURE CHG CYTOGENETICS&MOLEC CYTOGENETICS INTERP&REP Donya Abernathy, SALES FLOOR MANAGER-MITER GRINDER OPERATOR [address], [place] [address] Phone: tel: fax: Referral ID Status Reason Start Date Expiration Date V isits Requested Visits Authorized [id number] Authorized 03/01/2024 03/01/2025 1 0 [facility] Work Phone: reason for visit Narrative* Imaging (Routine) - Authorized Specialty Diagnoses / Procedures Referred By Alejandro t Referred To Contact Radiology Diagnoses Female infertility Procedures KELSY US Endometrial Lining Check Donay Abernathy, SALES FLOOR MANAGER-MITER GRINDER OPERATOR [address], [place] [address] Phone: tel: fax: Referral ID Status Reason Start Date Expiration Date Visits Requested Visits Authorized [id number] Authorized Perform Procedure 4 02/23/2025 5 5 [facility] Work Phone: Reason for visit Narrative* Procedure (Routine) - Authorized Specialty Diagnoses / Procedures Referred By Alejandro hyatt Referred To Contact Reproductive Endocrinology and Infertility Diagnoses Encounter for assisted reproductive fertility cycle Procedures Embryo Transfer WY EMBRYO TRANSFER INTRAUTERINE CHG ULTRASONIC GUIDANCE INTRAOPERATIVE CHG THAWING CRYOPRESERVED EMBRYO CHG ASSTD EMBRYO HATCHING MICROTQS ANY METH CHG PREPJ EMBRYO TR Juan Chavarria MD [address] [facility] [address] [place] [address] Phone: tel: fax: Referral ID Status Reason Start Date Expiration Date V isits Requested Visits Authorized [id number] Authorized 06/10/2024 06/10/2025 1 1 [facility] Work Phone: Reason for visit Narrative* Imaging (Routine) - Authorized Specialty Diagnoses / Procedures Referred By Alejandro Referred To Contact Radiology Diagnoses ([facility]) Procedures US OB detail anatomy Layo Courtney, [address] [facility] [address], [facility] [place] [address] Phone: tel: fax: Referral ID Status Reason Start Date Expiration Date Visits Requested Visits Authorized [id number] Authorized Perform Procedure 08/15/2024 08/15/2025 1 1 [facility] Work Phone: Summary Purpose Family History [...] Referral Specialty Diagnoses / Procedures Referred By Alejandro hyatt Referred To Contact Diagnoses Endometrial polyp Procedures Polypectomy Juan Chavarria MD [address] [place] [address] [address] [place] [address] Referral ID Status Reason Start Date Expiration Date V isits Requested Visits Authorized [id number] Authorized 01/25/2024 01/24/2025 1 1 Additional Source Comments INFORMATION SOURCE (unrecogn ized section and content) DATE CREATED AUTHOR 08/01/2022 [facility] DATE CREATED AUTHOR AUTHOR'S ORGANIZ ATION 04/04/2024 [facility] DATE CREATED AUTHOR AUTHOR'S ORGANIZ ATION 06/15/2024 [facility] DATE CREATED AUTHOR AUTHOR'S ORGANIZ ATION 07/02/2024 [facility] DATE CREATED AUTHOR AUTHOR'S ORGANIZ ATION 07/14/2024 [facility] DATE CREATED AUTHOR AUTHOR'S ORGANIZ ATION 10/11/2024 [facility] DATE CREATED AUTHOR AUTHOR'S ORGANIZ ATION 11/12/2024 [facility] EPIC Patient Care team informatio n (unrecognized section and content) Car Cleaner Relationship Specialty Start Date End Date Allyssa Robles RN Registered Nurse Reproductive Endocrinology and Infertility 12/25/23 Car Cleaner Relationship Specialty Start Date End Date Allyssa Robles RN Registered Nurse Reproductive Endocrinology and Infertility 12/25/23 Car Cleaner Relationship Specialty Start Date End Date Allyssa Robles RN Registered Nurse Reproductive Endocrinology and Infertility 12/25/23 Car Cleaner Relationship Specialty Start Date End Date Allyssa Robles RN Registered Nurse Reproductive Endocrinology and Infertility 12/25/23 Car Cleaner Relationship Specialty Start Date End Date Allyssa Robles RN Registered Nurse Reproductive Endocrinology and Infertility 12/25/23 Car Cleaner Relationship Specialty Start Date End Date Allyssa Robles RN Registered Nurse Reproductive Endocrinology and Infertility 12/25/23 Car Cleaner Relationship Specialty Start Date End Date Allyssa Robles RN Registered Nurse Reproductive Endocrinology and Infertility 12/25/23 Car Cleaner Relationship Specialty Start Date End Date Allyssa Robles RN Registered Nurse Reproductive Endocrinology and Infertility 12/25/23 Car Cleaner Relationship Specialty Start Date End Date Allyssa Robles RN Registered Nurse Reproductive Endocrinology and Infertility 12/25/23 Car Cleaner Relationship Specialty Start Date End Date Ginger Torres LPN Licensed Practical Nurse 12/10/23 Car Cleaner Relationship Specialty Start Date End Date Allyssa Robles RN Registered Nurse Reproductive Endocrinology and Infertility 12/25/23 Car Cleaner Relationship Specialty Start Date End Date Allyssa Robles RN Registered Nurse Reproductive Endocrinology and Infertility 12/25/23 Car Cleaner Relationship Specialty Start Date End Date Allyssa Robles RN Registered Nurse Reproductive Endocrinology and Infertility 12/25/23 Car Cleaner Relationship Specialty Start Date End Date Allyssa Robles RN Registered Nurse Reproductive Endocrinology and Infertility 12/25/23 Car Cleaner Relationship Specialty Start Date End Date Allyssa Robles RN Registered Nurse Reproductive Endocrinology and Infertility 12/25/23 Reason for Visit (unrecogniz ed section and content) Specialty Diagnoses / Procedures Referred By Alejandro hyatt Referred To Contact Diagnoses Endometrial polyp Procedures Polypectomy Juan Chavarria MD [address] [facility] [address], [place] [address] [address] [place] [address] Referral ID Status Reason Start Date Expiration Date V isits Requested Visits Authorized [id number] Authorized 01/25/2024 01/24/2025 1 1 Specialty Diagnoses / Procedures Referred By Alejandro hyatt Referred To Contact Radiology Diagnoses Female infertility Procedures KELSY US Pelvis Limited Follicles - Follicle Studies Performed America Quintanilla, SALES FLOOR MANAGER-MITER GRINDER OPERATOR [address] [place] [address] Referral ID Status Reason Start Date Expiration Date Visits Requested Visits Authorized [id number] Authorized Perform Procedure 02/02/2024 02/01/2025 8 8 [...] BE BASED ON THE PRIMARY CLINICAL RECORDS. [facility] [employer] [facility]. provides no warranty or guarantee of the accuracy or completeness of information in this document.
[2024-11-26 10:14] LABS: Hematocrit 38.9 % (36.0-48.0); Hemoglobin 13.6 g/dL (12.0-16.0); Immature Granulocytes Abs Auto 0.13 10^3/uL (0.00-0.03); Immature Granulocytes Pct Auto 1.4 % (0.0-0.5); Lymphocytes Absolute Auto 1.7 10^3/uL (1.2-3.8); Mean Corpuscular HGB Conc 35.0 g/dL (29.9-35.2); Mean Corpuscular Hemoglobin 31.5 pg (26.7-34.0); Mean Corpuscular Volume 90.0 fL (81.0-99.0); Platelet Count 142 10^3/uL (150-450); Red Blood Count 4.32 10^6/uL (4.20-5.40); White Blood Count 9.2 10^3/uL (4.0-11.0)
[2024-11-26 10:25] LABS: Glucose 1 Hour 156 mg/dL (<130)
== END 2024-11-26 08:57 | disposition home or self-care (01) ==
LOC: LAB 08:56
PROVIDERS: Visit Provider Obstetrics & Gynecology
DX: Z13.1 Encounter for screening for diabetes mellitus (principal)
CPT/HCPCS: 36415; 82950; 85025

== ENCOUNTER 2024-12-06 11:13 | Outpatient (OUT) | payer OTHER, SELFPAY ==
--- OUTSIDE RECORDS SUMMARY | 2024-12-06 08:30 | XMS_ITS | Encounter Summary ---
Author Organization [facility] Address [address] [place] [address] Care Team Providers Care Grain Shipper Name Role Phone Unavailable Primary Care Provider Unavailabl e Reason for Visit * Reason Comments Routine Visit Encounter Details Date Type Department Care Team (Latest Contact Info) Description 12/06/2024 8:30 AM EDT Routine [facility] [address] [place] [id number] Layo Courtney DO [address] [place], [place] [id number] 27 weeks gestation of ([facility]); Second trimester ([facility]); resulting from in vitro fertilization in second trimester ([facility]) 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 Tobacco Use Types Packs/Day Years [...] Sign Reading Time Taken Comments Blood Pressure 100/70 12/06/2024 8:33 AM EDT Pulse - - Temperature - - Respiratory Rate - - Oxygen Saturation - - Inhaled Oxygen Concentration - - Weight 97.5 kg (215 lb) 12/06/2024 8:33 AM EDT Height - - Body Mass Index 38.09 09/17/2022 12:00 PM EDT documented in this encounter Progress Notes * ORION Spence - 12/06/2024 8:30 AM EDT Reason for Appointment: Patient ID: Sydney Garcia is a 28 y.o. female who presents for Routine Visit Patient presents today for Return OB appointment. MEDICATIONS Current Outpatient Medications Medication Instructions MV-Min-Fe Fum-FA-DHA ( 1 PO) 1 each, [...] reviewed. Vitals: Estimated body mass index is 38.09 kg/m?? as calculated from the following: Height as of 09/17/22: 5' 3 . Weight as of this encounter: 215 lb. BP: 100/70 No LMP recorded. Patient is . ASSESSMENT & PLAN ICD-10-CM 1. 27 weeks gestation of ([facility]) Z3A.27 POCT urinalysis dipstick manually resulted 2. Second trimester ([facility]) Z34.92 POCT urinalysis dipstick manually resulted Return OB: Patient presents today for a routine obstetrics appointment. Patient is currently 27w6d . Patient states she is doing well but has complaints of being tired due to current . Patient has verbalizes frequent movement. labor precautions was discussed/given and patient was instructed to perform kick counts three times a day. Orders Placed This Encounter Procedures POCT urinalysis dipstick manually resulted Follow Up: Patient is to return to office in 2 week for routine OB appointment. Documented by ORION Spence on behalf of: Layo Courtney DO documented in this encounter Miscellaneous Notes * Addendum Note - Sukh Greer LPN - 12/06/2024 8:30 AM EDTAddended by: SUKH GREER on: 12/06/2024 09:15 AM Modules accepted: Orders documented in this encounter Plan of Treatment Upcoming Encounters Date Type Department Care Team (Late st Contact Info) Description 12/19/2024 9:30 AM EDT Ancillary Procedure [facility] [address] [place] [address] 12/19/2024 10:00 AM EDT Routine [facility] [address] [place] [address] Layo Courtney DO [address] [place] [address] Scheduled Orders Name Type Priority Associated Diagnoses Orde r Schedule US OB follow up transabdominal approach Imaging Routine resulting from in vitro fertilization in second trimester ([facility]) q4 weeks for 5 Occurrences starting 12/06/2024 until 04/07/2025 documented as of this encounter Procedures Procedure Name Priority Date/Time Associated Diagnosis Comments POCT URINALYSIS DIPSTICK Routine 12/06/2024 8:40 AM EDT 27 weeks gestation of ([facility]) Second trimester ([facility]) documented in this encounter Results * (ABNORMAL) POCT urinalysis dipstick manually resulted (12/06/2024 8:40 AM EDT) Color, UA Yellow Clarity, UA Clear Glucose, UA Negative Negative - 2000(110) ++++ mg/dL Bilirubin, UA Negative Negative - 4(70) +++ mg/dL Ketones, UA Negative Negative - 160(16) ++++ mg/dL Spec Grav, UA 1.015 1 - 1.03 Blood, UA Negative Negative - 50 Jose/mcL pH, UA 8.0 5 - 9 Protein, UA Negative Negative - 2000(20) ++++ mg/dL Urobilinogen, UA 1.0 0.2 - 12 mg/dL Leukocytes, UA 3+ Negative - 500+++ Onel/mcL Nitrite, UA Negative Negative - Positive Urine 12/06/2024 8:40 AM EDT Layo Courtney DO POINT OF CARE TEST ENTER/EDIT OR DERABLES Final Result documented in this encounter Visit Diagnoses Diagnosis 27 weeks gestation of ([facility]) Second trimester ([facility]) state, incidental resulting from in vitro fertilization in second trimester ([facility]) documented in this encounter
--- OUTSIDE RECORDS SUMMARY | 2024-12-06 11:17 | XMS_ITS | Clinical Summary ---
Author Organization [facility] Address [address] [place] [address] Care Team Providers Care Insole And Outsole Preparer Name Role Phone Unavailable Primary Care Provider [...] the morning and 500 mg before bedtime. 5 12/07/19 25 Discontinued famotidine (Pepcid) 20 MG tabletIndicati ons:Gastroesop hageal Reflux Disease,Heartb urn Take 1 tablet (20 mg) by mouth Daily 30 tablet 5 12/07/19 25 Discontinued cetirizine (ZyrTEC ALLERGY) 10 MG tabletIndicati ons:Pruritus of in second trimester ([facility]) Take 1 tablet (10 mg) by mouth Daily 30 tablet 5 12/07/19 25 Discontinued methylPREDNISo lone (Medrol Dospak) 4 MG tabletsIndicat ions:Pruritus of in second trimester ([facility]) Day 1: 6 tablets Day 2: 5 tablets Day 3: 4 tablets Day 4: 3 tablets Day 5: 2 tablets Day 6: 1 tablet 21 tablet 5 12/07/19 25 Discontinued hydrOXYzine pamoate (Vistaril) 25 MG capsuleIndicat ions:Pruritus Take 1 capsule (25 mg) by mouth every 6 (six) hours if needed for itching for up to 10 days 30 capsule 5 12/07/19 25 Discontinued cyclobenzaprin e (Flexeril) 10 MG tabletIndicati ons:Acute bilateral low back pain without sciatica Take 0.5 tablets (5 mg) by mouth 3 (three) times a day as needed for muscle spasms for up to 10 days 30 tablet 2 5 12/07/19 25 Discontinued Active Problems Estimated Date of Delivery Comme nts Yes 03/01/2025 Based on Ultraso und No known active problems Encounters Date Type Department Care Team Description 12/06/2024 8:30 AM EDT Routine [facility] [address] [place] [address] Layo Courtney, 27 weeks gestation of ([facility]); Second trimester ([facility]); resulting from in vitro fertilization in second trimester ([facility]) 12/06/2024 Bamboo flowsheet [facility] [address] [address] [place] [phone] Layo Courtney, 11/28/2024 Telephone [facility] [address] [address] [place] [address] Layo Courtney, 11/26/2024 Clinisync Result Encounter NOM[facility] External Department Unsolicited Layo Courtney, 11/18/2024 Abstract [facility] TIPTONGYN [address] [place] [address] Layo Courtney, 11/08/2024 2:40 PM EDT Routine [facility] [address] [place] [address] Layo Courtney, DO Second trimester ([facility]); 26 weeks gestation of ([facility]); Diabetes mellitus screening 11/08/2024 Abstract [facility] [address] [place] [address] Emilia Donahue MA 10/17/2024 1:00 PM EDT Routine [facility] [address] [place] [address] Layo Courtney, Acute bilateral low back pain without sciatica (Primary Dx); Second trimester ([facility]); 20 weeks gestation of ([facility]) 10/17/2024 Bamboo flowsheet [facility] [address] [place] [address] Layo Courtney, DO 10/11/2024 2:40 PM EDT Routine [facility] [address] [place] [address] Layo Courtney, Second trimester ([facility]); 19 weeks gestation of ([facility]); Pruritus 10/11/2024 Clinisync Result Encounter [facility] External Department Unsolicited Layo Courtney, DO 10/11/2024 Bamboo flowsheet [facility] [address] [place] [address] Layo Courtney, DO 10/07/2024 Clinisync Result Encounter [facility] External Department Unsolicited Layo Courtney, DO 10/04/2024 Telephone [facility] [address] [place] [address] Brandy Sheehan PA 09/23/2024 Telephone [facility] [address] [place] [address] Maria Isabel Harry LPN 09/22/2024 9:40 AM EDT Routine [facility] [address] [place] [address] Brandy Sheehan, PA 17 weeks gestation of ([facility]); Second trimester ([facility]); Abnormal urine 09/22/2024 Bamboo flowsheet [facility] [address] [place] [phone] Brandy Sheehan PA 09/21/2024 Abstract [facility] [address] [place] [phone] Layo Courtney, DO 09/21/2024 Abstract [facility] [address] [place] [phone] Layo Courtney, DO 09/13/2024 Telephone [facility] TIPTONG[facility] [address] [place] [phone] Niki Barbosa LPN 09/06/2024 2:50 PM EDT Routine [facility] ZACARIAS [address] [place] [address] Brandy Sheehan PA STD exposure; Second trimester ([facility]); 14 weeks gestation of ([facility]); Screening, , for anatomic survey ([facility]) 09/06/2024 External Result Encounter [facility]OMS External Department Unsolicited Brandy Sheehan PA 09/06/2024 Bamboo flowsheet [facility] [address] [place] [phone] Brandy Sheehan PA from Last 3 Months Family History Medical [...] (215 lb) 12/06/2024 8:33 AM EDT Height 160 cm (5' 3 ) 09/17/2022 12:00 PM EDT Body Mass Index 38.09 09/17/2022 12:00 PM EDT Plan of Treatment Upcoming Encounters Date Type Department Care Team (Late st Contact Info) Description 12/19/2024 9:30 AM EDT Ancillary Procedure [facility] [address] [place] [address] 12/19/2024 10:00 AM EDT Routine [facility] T[facility] [address] [place] [address] Layo Courtney DO [address] [place] [address] Procedures Procedure Name Priority Date/Time Associated Diagnosis Comments POCT URINALYSIS DIPSTICK Routine 12/06/2024 8:40 AM EDT 27 weeks gestation of ([facility]) Second trimester ([facility]) GLUCOSE 1 HOUR Routine 11/26/2024 10:03 AM EDT ALL CBC WITH AUTO DIFF Routine 11/26/2024 10:03 AM EDT POCT URINALYSIS DIPSTICK Routine 11/09/2024 11:39 AM EDT Second trimester ([facility]) 26 weeks gestation of ([facility]) POCT URINALYSIS DIPSTICK Routine 10/17/2024 1:15 PM EDT Second trimester ([facility]) CCF BILE ACIDS FRACT BLD Routine 10/11/2024 3:19 PM EDT ALL HEPATITIS C AB Routine 10/11/2024 3: 19 PM EDT ALL THYROID STIM HORMONE Routine 10/11/2024 3:19 PM EDT HP LIVER PANEL Routine 10/11/2024 3:19 PM EDT ALL CBC WITH AUTO DIFF Routine 10/11/2024 3:19 PM EDT US OB DETAIL ANATOMY 10/07/2024 7:31 AM EDT URINARY TRACT INFECTION (HTRX) Routine 09/22/2024 12:54 PM EDT POCT URINALYSIS DIPSTICK Routine 09/22/2024 9:54 AM EDT 17 weeks gestation of ([facility]) Second trimester ([facility]) RECURRENT VAGINITIS (HTRX) Routine 09/06/2024 3:59 PM EDT POCT URINALYSIS DIPSTICK Routine 09/06/2024 3:46 PM EDT Screening, , for anatomic survey ([facility]) from Last 3 Months Results * (ABNORMAL) POCT urinalysis dipstick manually resulted (12/06/2024 8:40 AM EDT) Only the most recent of5 resultswithin the time period is included. Color, [...] - Positive Urine 12/06/2024 8:40 AM EDT us Layoarthur Navarroo DO POINT OF CARE TEST ENTER/EDIT OR DERABLES Final Result * (ABNORMAL) GLUCOSE 1 HOUR (11/26/2024 10:03 AM EDT) GLUCOSE 1 HOUR 156(H) <130 mg/dL TBH 11/26/2024 10:0 3 AM EDT 11/26/2024 10:04 AM EDT Narrative CRISTALISYNC - 11/26/2024 10:27 AM EDT us Layo Sherwin DO LAB BLOOD ORDERABLES Final Resul t [facility] * (ABNORMAL) ALL CBC WITH AUTO DIFF (11/26/2024 10:03 AM EDT) Only the most recent of2 resultswithin the time period is included. Pathologist [facility] WBC 9.2 4.0 - 11.0 10 3/uL TBH TBH RBC 4.32 4.20 - 5.40 10 6/uL TBH TBH HGB 13.6 12.0 - 16.0 g/dL TBH TBH HCT 38.9 36.0 - 48.0 % TBH TBH MCV 90.0 81.0 - 99.0 fL TBH TBH MCH 31.5 26.7 - 34.0 pg TBH TBH MCHC 35.0 29.9 - 35.2 g/dL TBH TBH RDW 12.4 11.0 - 15.0 % TBH TBH PLT 142(L) 150 - 450 10 3/uL TBH TBH MPV 11.3 9.5 - 13.5 fL TBH NEUTROPHILS PERCENT AUTO 73.7 43.0 - 75.0 % TBH LYMPHOCYTES PERCENT AUTO 18.9(L) 20.5 - 60.0 % TBH MONOCYTES PERCENT AUTO 4.6 1.7 - 12.0 % TBH TBH EO % 1.1 0.9 - 7.0 % TBH BASOPHILS PERCENT AUTO 0.3 0.2 - 2.0 % TBH IMMATURE GRANULOCYTES PCT AUTO 1.4(H) 0.0 - 0.5 % TBH NEUTROPHILS ABSOLUTE AUTO 6.8(H) 1.4 - 6.5 10 3/uL TBH LYMPHOCYTES ABSOLUTE AUTO 1.7 1.2 - 3.8 10 3/uL TBH MONOCYTES ABSOLUTE AUTO 0.4 0.3 - 0.8 10 3/uL TBH TBH EO # 0.1 0.0 - 0.7 10 3/uL TBH BASOPHILS ABSOLUTE AUTO 0.0 0.0 - 0.1 10 3/uL TBH IMMATURE GRANULOCYTES ABS AUTO 0.13(H) 0.00 - 0.03 10 3/uL [facility]H 11/26/2024 10:0 3 AM EDT 11/26/2024 10:04 AM EDT Narrative CLINISYNC - 11/26/2024 10:14 AM EDT Layo Sherwin DO CLINISYNC Final Result Performing Organization Address City/[facility] Co de Phone Number CLINISYID TB * (ABNORMAL) [facility] LIVER PANEL (10/11/2024 3:19 PM EDT) BILIRUBIN TOTAL 0.2 0.2 - 1.0 mg/dL TB BILIRUBIN DIRECT 0.1 0.0 - 0.2 mg/dL [...] EDT Layo Sherwin DO CLINISYNC Final Result [facility] * [facility] BILE ACIDS FRACT BLD (10/11/2024 3:19 PM EDT) BILE ACIDS 2.5 0.0 - 10.0 umol/L [facility]H Comment: Performed at: [facility] [address] [id number] [place]: Padmini Barreto MD, Phone: [phone] 10/11/2024 3:19 PM EDT 10/11/2024 3:22 PM EDT Narrative CLINISYNC - 10/12/2024 8:13 PM EDT us Layo Sherwin DO CLINISYNC Final Result [facility] * ALL THYROID STIM HORMONE (10/11/2024 3:19 PM EDT) THYROID STIMULATING HORMONE 1.126 0.358 - 3.740 uIU/mL [facility]H 10/11/2024 3:19 PM EDT 10/11/2024 3:22 PM EDT Narrative CLINISYNC - 10/11/2024 4:25 PM EDT us Layo Sherwin DO CLINISYNC Final Result Performing Organization Address [facility] Co de Phone Number [facility] * ALL HEPATITIS C AB (10/11/2024 3:19 PM EDT) Pathologist [facility] HCV ANTIBODY Non Reactive Non Reactive [facility] Comment: HCV antibody alone does not differentiate between previously resolved infection and active infection. Equivocal and Reactive HCV antibody results should be followed up with an HCV RNA test to support the diagnosis of active HCV infection. Performed at: [facility] [address] [id number] [place]: Jason Spangler PhD, Phone: [phone] 10/11/2024 3:19 PM EDT 10/11/2024 3:22 PM EDT Narrative CLINISYNC - 10/12/2024 5:09 AM EDT us Layo Sherwin DO CLINISYNC Final Result Performing Organization Address [facility]/ZIP Co de Phone Number [facility] * US OB detail anatomy (10/07/2024 7:31 AM EDT) Anatomical Region Laterality Modality Body Ultrasound 10/07/2024 7:31 AM EDT Narrative 10/07/2024 10:24 AM EDT Source Facility: [facility] Interpreted by: Ad Ovalle Indication ======== Screening [...] EFW (oz) 12 oz EFW by: Hadlock ([id number]) Extended Campus Security Officer 6.0 mm CM 4.4 mm 36% Nicolaides [...] Normal LVOT view: Normal 3-vessel view: Normal 7-csuxhx-fslugon view: Normal Heart / Thorax Situs: situs [...] Note Radiology, Radiologist, - 10/07/2024 Source Facility: [facility] Interpreted by: Ad Ovalle Indication ======== Screening [...] EFW (oz) 12 oz EFW by: Hadlock ([id number]) Extended Campus Security Officer 6.0 mm CM 4.4 mm 36% Nicolaides [...] Normal LVOT view: Normal 3-vessel view: Normal 1-hfvztm-fwvpxfv view: Normal Heart / Thorax Situs: situs [...] - 24.689 ppm 09/23/2024 6:23 AM EDT [facility] ACINETOBACTER BAUMANII Not Detected 19.961 - 24.689 ppm 09/23/2024 6:23 AM EDT [facility] CITROBACTER FREUNDII 0.000 23.000 - 31.881 ppm 09/23/2024 6:23 AM EDT [facility] CITROBACTER FREUNDII Not Detected 23.000 - 31.881 ppm 09/23/2024 6:23 AM EDT [facility] ENTEROBACTER AEROGENES, CLOACAE 0.000 23.000 - 31.535 ppm 09/23/2024 6:23 AM EDT [facility] ENTEROBACTER AEROGENES, CLOACAE Not Detected 23.000 - 31.535 ppm 09/23/2024 6:23 AM EDT [facility] ENTEROCOCCUS FAECALIS, FAECIUM 0.000 26.000 - 31.575 ppm 09/23/2024 6:23 AM EDT [facility] ENTEROCOCCUS FAECALIS, FAECIUM Not Detected 26.000 - 31.575 ppm 09/23/2024 6:23 AM EDT [facility] ESCHERICHIA COLI 0.000 23.000 - 28.500 ppm 09/23/2024 6:23 AM EDT [facility] ESCHERICHIA COLI Not Detected 23.000 - 28.500 ppm 09/23/2024 6:23 AM EDT [facility] KLEBSIELLA PNEUMONIAE, OXYTOCA 0.000 23.000 - 30.500 ppm 09/23/2024 6:23 AM EDT [facility] KLEBSIELLA PNEUMONIAE, OXYTOCA Not Detected 23.000 - 30.500 ppm 09/23/2024 6:23 AM EDT [facility] MORGANELLA MORGANII 0.000 19.961 - 24.689 ppm 09/23/2024 6:23 AM EDT [facility] MORGANELLA MORGANII Not Detected 19.961 - 24.689 ppm 09/23/2024 6:23 AM EDT [facility] PROTEUS MIRABILIS, VULGARIS 0.000 23.000 - 28.500 ppm 09/23/2024 6:23 AM EDT [facility] PROTEUS MIRABILIS, VULGARIS Not Detected 23.000 - 28.500 ppm 09/23/2024 6:23 AM EDT [facility] PSEUDOMONAS AERUGINOSA 0.000 23.000 - 28.500 ppm 09/23/2024 6:23 AM EDT [facility] PSEUDOMONAS AERUGINOSA Not Detected 23.000 - 28.500 ppm 09/23/2024 6:23 AM EDT [facility] STAPHYLOCOCCUS AUREUS 0.000 26.000 - 30.902 ppm 09/23/2024 6:23 AM EDT [facility] STAPHYLOCOCCUS AUREUS Not Detected 26.000 - 30.902 ppm 09/23/2024 6:23 AM EDT [facility] STREPTOCOCCUS AGALACTIAE (GROUP B STREP) 0.000 26.000 - 32.222 ppm 09/23/2024 6:23 AM EDT [facility] STREPTOCOCCUS AGALACTIAE (GROUP B STREP) Not Detected 26.000 - 32.222 ppm 09/23/2024 6:23 AM EDT [facility] PRESTON ALBICANS, PARAPSILOSIS, TROPICALIS 0.000 19.961 - 30.770 ppm 09/23/2024 6:23 AM EDT [facility] PRESTON ALBICANS, PARAPSILOSIS, TROPICALIS Not Detected 19.961 - 30.770 ppm 09/23/2024 6:23 AM EDT [facility] PRESTON GLABRATA 0.000 23.000 - 32.138 ppm 09/23/2024 6:23 AM EDT [facility] PRESTON GLABRATA Not Detected 23.000 - 32.138 ppm 09/23/2024 6:23 AM EDT [facility] PRESTON KRUSEI 0.000 23.000 - 32.271 ppm 09/23/2024 6:23 AM EDT [facility] PRESTON KRUSEI Not Detected 23.000 - 32.271 ppm 09/23/2024 6:23 AM EDT [facility] SERRATIA MARCESCENS 0.000 23.000 - 31.204 ppm 09/23/2024 6:23 AM EDT [facility] SERRATIA MARCESCENS Not Detected 23.000 - 31.204 ppm 09/23/2024 6:23 AM EDT [facility] STREPTOCOCCUS PYOGENES (GROUP A STREP) 0.000 19.961 - 24.689 ppm 09/23/2024 6:23 AM EDT [facility] STREPTOCOCCUS PYOGENES (GROUP A STREP) Not Detected 19.961 - 24.689 ppm 09/23/2024 6:23 AM EDT [facility] STAPHYLOCOCCUS EPIDERMIDIS, HAEMOLYTICUS, LUGDUNENSIS, SAPROPHYTICUS (URINA 0.000 19.961 - 24.689 ppm 09/23/2024 6:23 AM EDT [facility] STAPHYLOCOCCUS EPIDERMIDIS, HAEMOLYTICUS, LUGDUNENSIS, SAPROPHYTICUS (URINA Not Detected 19.961 - 24.689 ppm 09/23/2024 6:23 AM EDT [facility] STAPHYLOCOCCUS EPIDERMIDIS, HAEMOLYTICUS, LUGDUNENSIS, SAPROPHYTICUS (URINA 30.380(A) 19.961 - 24.689 ppm 09/23/2024 6:23 AM EDT [facility] STAPHYLOCOCCUS EPIDERMIDIS, HAEMOLYTICUS, LUGDUNENSIS, SAPROPHYTICUS (URINA Detected(A) 19.961 - 24.689 ppm 09/23/2024 6:23 AM EDT [facility] ERMB, C; MEFA 18.368(A) 23.000 - 27.611 ppm 09/23/2024 6:23 AM EDT [facility] ERMB, C; MEFA Detected(A) 23.000 - 27.611 ppm 09/23/2024 6:23 AM EDT [facility] TET B, TET M 17.822(A) 23.000 - 27.778 ppm 09/23/2024 6:23 AM EDT [facility] TET B, TET M Detected(A) 23.000 - 27.778 ppm 09/23/2024 6:23 AM EDT [facility] Urine 09/22/2024 12:5 4 PM EDT 09/23/2024 1:28 AM EDT us Brandy SEARS LAB BLOOD ORDERABLES Final Resul t [facility] [address] [place] [address] * RECURRENT VAGINITIS (HTRX) (09/06/2024 3:59 PM EDT) [facility] ATOPOBIUM VAGINAE 0.000 19.961 - 24.689 ppm 09/07/2024 6:01 AM EDT [facility] ATOPOBIUM VAGINAE Not Detected 19.961 - 24.689 ppm 09/07/2024 6:01 AM EDT [facility] BVAB 2,3 (BACTERIAL VAGINOSIS ASSOCIATED BACTERIA 2, 3); MOBILUNCUS SPP 0.000 19.961 - 24.689 ppm 09/07/2024 6:01 AM EDT [facility] BVAB 2,3 (BACTERIAL VAGINOSIS ASSOCIATED BACTERIA 2, 3); MOBILUNCUS SPP Not Detected 19.961 - 24.689 ppm 09/07/2024 6:01 AM EDT [facility] PRESTON ALBICANS, PARAPSILOSIS, TROPICALIS 0.000 19.961 - 30.770 ppm 09/07/2024 6:01 AM EDT [facility] PRESTON ALBICANS, PARAPSILOSIS, TROPICALIS Not Detected 19.961 - 30.770 ppm 09/07/2024 6:01 AM EDT [facility] PRESTON GLABRATA 0.000 23.000 - 32.138 ppm 09/07/2024 6:01 AM EDT [facility] PRESTON GLABRATA Not Detected 23.000 - 32.138 ppm 09/07/2024 6:01 AM EDT [facility] PRESTON KRUSEI 0.000 23.000 - 32.271 ppm 09/07/2024 6:01 AM EDT [facility] PRESTON KRUSEI Not Detected 23.000 - 32.271 ppm 09/07/2024 6:01 AM EDT [facility] CHLAMYDIA TRACHOMATIS 0.000 23.000 - 31.467 ppm 09/07/2024 6:01 AM EDT [facility] CHLAMYDIA TRACHOMATIS Not Detected 23.000 - 31.467 ppm 09/07/2024 6:01 AM EDT [facility] GARDNERELLA VAGINALIS 0.000 19.961 - 24.689 ppm 09/07/2024 6:01 AM EDT [facility] GARDNERELLA VAGINALIS Not Detected 19.961 - 24.689 ppm 09/07/2024 6:01 AM EDT [facility] MEGASPHAERA (TYPES 1, 2) 0.000 19.961 - 24.689 ppm 09/07/2024 6:01 AM EDT [facility] MEGASPHAERA (TYPES 1, 2) Not Detected 19.961 - 24.689 ppm 09/07/2024 6:01 AM EDT [facility] NEISSERIA GONORRHOEAE 0.000 23.000 - 32.117 ppm 09/07/2024 6:01 AM EDT [facility] NEISSERIA GONORRHOEAE Not Detected 23.000 - 32.117 ppm 09/07/2024 6:01 AM EDT [facility] TRICHOMONAS VAGINALIS 0.000 23.000 - 32.119 ppm 09/07/2024 6:01 AM EDT [facility] TRICHOMONAS VAGINALIS Not Detected 23.000 - 32.119 ppm 09/07/2024 6:01 AM EDT [facility] MYCOPLASMA GENITALIUM 0.000 19.961 - 24.689 ppm 09/07/2024 6:01 AM EDT [facility] MYCOPLASMA GENITALIUM Not Detected 19.961 - 24.689 ppm 09/07/2024 6:01 AM EDT [facility] Tissue 09/06/2024 3:59 PM EDT 09/07/2024 1:25 AM EDT us Brandy SEASR LAB BLOOD ORDERABLES Final Resul t [facility] [place] [address] from Last 3 Months Insurance [employer]
--- OUTSIDE RECORDS SUMMARY | 2024-12-06 11:17 | XMS_ITS | Encounter Summary ---
Author Organization [facility] Address [address] [place] [address] Care Team Providers Care Paper Tester Name Role Phone Unavailable Primary Care Provider Unavailabl e Encounter Details Date Type Department Care Team (Late st Contact Info) Description 01/21/2024 Orders Only NOMKenisha ZACARIAS [address] [place] [phone] Marilia Elder MA [address] [place] [address] 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 Tobacco Use Types Packs/Day Years [...] Description 12/19/2024 9:30 AM EDT Ancillary Procedure NOMKenisha ZACARIAS [facility] [place] [place] [phone] 12/19/2024 10:00 AM EDT Routine NOMKenisha ZACARIAS [address] [place] [phone] Layo Courtney DO [address] [place], [place] [phone] documented as of this encounter Procedures Procedure [...]
--- OUTSIDE RECORDS SUMMARY | 2024-12-06 11:17 | XMS_ITS | Encounter Summary ---
Author Organization [facility] Address [address] [place] [address] Care Team Providers Care Validation Manager Name Role Phone Unavailable Primary Care Provider Unavailabl e Encounter Details Date Type Department Care Team (Late Contact Info) Description 09/21/2024 Abstract [facility] Yanira ZACRAIAS [address] [place], [place] [address] [address] Layo Courtney DO [address] [place] [address] 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 Tobacco Use Types Packs/Day [...] Department Care Team (Late Contact Info) Description 12/19/2024 9:30 AM EDT Ancillary Procedure NOMKenisha ZACARIAS [address] [place], [place] [address] [phone] 12/19/2024 10:00 AM EDT Routine NOMKenisha ZACARIAS [facility] [place] [phone] Layo Courtney DO [facility] [address] [place], [place] [phone] documented as of this encounter Visit Diagnoses Not on filedocumented in this encounter
--- OUTSIDE RECORDS SUMMARY | 2024-12-06 11:17 | XMS_ITS | Encounter Summary ---
Author Organization [facility] Address [address] [place] [address] Phone Care Team Providers Care Screed Operator Name Role Phone Allyssa Robles RN Unavailable Unavailable Encounter Details Date Type Department Care Team (Late st Contact Info) Description 06/13/2024 Lab Requisition [facility] [address] [place] [address] Juan Chavarria MD [address] [facility] [place], [facility] [address] [place], [place] [phone] Female infertility, unspecified 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 Tobacco Use [...] LAB IMMUNOASSAY METHOD 06/13/2024 2:07 PM EST [facility] Blood Venous blood specimen / Unknown 06/13/2024 11:38 AM EST 06/13/2024 12:46 PM EST Narrative [facility] - 06/13/2024 2:07 PM EST REF VALUES Male <0.2-0.8 Follicular Phase <0.2-1.5 Luteal Phase 7.4-15.4 Post Menopausal <0.2-0.2 1ST Trimester 12.0-84.0 2ND Trimester 10.2-58.8 3RD Trimester 46.5-160 Progesterone is performed using the [employer] Access Immunoassay. Progesterone testing is performed using a different test methodology at [facility] than other [facility]. Direct result comparison should only be made within the same method. us Juan Chavarria MD LAB BLOOD ORDERABLES Final R esult [facility] [address] [place] [address] documented in this encounter Visit Diagnoses Diagnosis Female infertility, unspecified documented in this encounter Care Teams Screed Operator Relationship Specialty Start Date End Date Allyssa Robles, RN Registered Nurse Reproductive Endocrinology and Infertility 12/25/23 documented as of this encounter
--- OUTSIDE RECORDS SUMMARY | 2024-12-06 11:17 | XMS_ITS | Encounter Summary ---
Author Organization [facility] Address [address] [place] [address] Care Team Providers Care Supervising Producer Name Role Phone Unavailable Primary Care Provider Unavailabl e Encounter Details Date Type Department Care Team (Late st Contact Info) Description 04/10/2023 Clinisync Result Encounter NOMS External Department Unsolicited Rula Courtney DO [address] [place], [place] [phone] 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 Tobacco Use Types Packs/Day Years [...] 12/19/2024 9:30 AM EDT Ancillary Procedure N[facility] Yanira ZACARIAS [facility] [place] [phone] 12/19/2024 10:00 AM [place] [phone] Rula Courtney DO [address], [place] [phone] documented as of this encounter Procedures Procedure Name Priority Date/Time Associated Diagnosis Comments FL HYSTEROSALPINGOGRAPHY 023 3:10 PM EST documented in this encounter Results * FL HYSTEROSALPINGOGRAPHY (04/10/2023 3:10 PM EST) Anatomical Region Laterality Modality Other 04/10/2023 3:10 PM EST Narrative 04/10/2023 3:13 PM EST [place] [id number] Fluoroscopy Report Signed Patient: OLENA PEREYRA MR#: [id number] : 1995 Acct:[id number] Age/Sex: 27 / F ADM Date: 04/10/23 Loc: LAB Attending Dr: Rula Courtney D.O. Ordering Physician: Rula Courtney D.O. Date of Service: 04/10/23 Procedure(s): FL hysterosalpingography Accession Number(s): [id number] cc: Rula Courtney D.O.; Physician,Non-Staff Steven The [place] [address] Patient Name: OLENA PEREYRA MRN: [id number] date: 1995 Sex: F Assigned Patient Location: LAB Current Patient Location: Accession/Order Number: [id number] Exam Date: 04/10/2023 14:30 Report Date: 04/10/2023 [...] Dictated By: Sridhar Lainez M.D. Signed By: 04/10/231512 DD/ 09 TD/TT: Business Control Specialist: Procedure Note Radiology, Radiologist, MD - 04/10/2023 [place] [address] Fluoroscopy Report Signed Patient: OLENA PEREYRA RMR#: [id number] : 1995Acct:[id number] Age/Sex: 27 / FADM Date: 04/10/23 Loc: LAB Attending Dr: Rula Courtney D.O. Ordering Physician: Rula Courtney D.O. Date of Service: 04/10/23 Procedure(s): FL hysterosalpingography Accession Number(s): [id number] cc: Rula Courtney D.O.; Physician,Non-Staff [place] [address] Patient Name: OLENA PEREYRA MRN: [id number] date: 1995 Sex: F Assigned Patient Location: LAB Current Patient Location: Accession/Order Number: [id number] Exam Date: 04/10/2023 14:30 Report Date: 04/10/2023 [...] 15:10 Dictated By: Sridhar Lainez M.D. Signed By:04/10/231512 DD/ 09 TD/TT: Business Control Specialist: us Rula Courtney DO [facility] Final Result documented in this encounter Visit Diagnoses Not on filedocumented in this encounter
--- OUTSIDE RECORDS SUMMARY | 2024-12-06 11:17 | XMS_ITS | Encounter Summary ---
Author Organization [facility] Address [address] [place] [address] Care Team Providers Care Emergency Doctor Name Role Phone Unavailable Primary Care Provider Unavailabl e Encounter Details Date Type Department Care Team (Late st Contact Info) Description 11/28/2024 Telephone [facility] David ZACARIAS [address] [place] [address] Layo Courtney DO [address] [place] [address] 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 Tobacco Use Types Packs/Day [...] Telephone Encounter - Cassy Licea LPN - 11/28/2024 8:24 AM EDT Patient was called and made aware of results and orders sent. documented in this encounter Plan of Treatment Upcoming Encounters Date Type Department Care Team (Late st Contact Info) Description 12/19/2024 9:30 AM EDT Ancillary Procedure [facility] David ZACARIAS [address] [place] [address] 12/19/2024 10:00 AM EDT Routine NOMS David ZACARIAS [address] [facility] [place] [address] Layo Courtney, [address] [facility] [place] [address] Scheduled Orders Name Type Priority Associated Diagnoses Orde r Schedule Glucose tolerance, 3 hours Lab Routine Elevated glucose tolerance test Expected: 11/28/2024 (Approximate), Expires: 11/28/2025 documented as of this encounter Visit Diagnoses Diagnosis Elevated glucose tolerance test Impaired glucose tolerance test documented in this encounter
--- OUTSIDE RECORDS SUMMARY | 2024-12-06 11:17 | XMS_ITS | Encounter Summary ---
Author Organization [facility] Address [address] [place] [address] Phone Care Team Providers Care Guest Relations Officer Name Role Phone Allyssa Robles RN Unavailable Unavailable Encounter Details Date Type Department Care Team (Late st Contact Info) Description 06/23/2024 Lab Requisition [facility] [address] [place] [phone] America Chavez, [place]FRICA[place] STUDIES PROFESSOR-ATTENDING PATHOLOGIST [address] [place] [address] Female infertility, unspecified 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 Tobacco Use [...] Hold for add-ons. 06/23/2024 10:02 AM EST [facility] Comment:Auto resulted. Blood Venous blood specimen / Unknown 06/23/2024 7:53 AM EST 06/23/2024 8:35 AM EST America Chavez AFRICA[place] STUDIES [facility] LAB BLOOD ORDERABLES Final Result Performing Organization Address City/[facility]/ZIP Co de Phone Number [facility] [address] [place], [place] [phone] * Phleb Charge - Venipuncture (Lab Use Only) (06/23/2024 7:53 AM EST) Blood Venous blood specimen / Unknown 06/23/2024 7:53 AM EST 06/23/2024 8:35 AM EST America Chavez [facility] LAB BLOOD ORDERABLES Final Result Performing Organization Address City/[facility]/ZIP Co de Phone Number [facility] [address] [place] [phone] * Estradiol (06/23/2024 7:53 AM EST) Estradiol 378 pg/mL LAB IMMUNOASSAY METHOD 06/23/2024 9:14 AM EST [facility] Blood Venous blood specimen / Unknown 06/23/2024 7:53 AM EST 06/23/2024 8:35 AM EST Narrative [facility] - 06/23/2024 9:14 AM EST REF VALUES FOLLICULAR PHASE 20-144 MID CYCLE 64-357 LUTEAL PHASE 56-214 POSTMENOPAUSE < 32 PREPUBERTY < 20 FEMALE 10-18Y 8-110 MALE 10-18Y < 20 ADULT MALE < 40 Estradiol measurement is performed using the Faith [place] Access Estradiol Immunoassay. Estradiol testing is performed using a different test methodology at [facility] than other [facility]. Direct result comparison should only be made within the same method. Americaroxy Chavez AFRICANA STUDIES PROFESSORSEOshop Group B.V.ATTENDING PATHOLOGIST LAB BLOOD ORDERABLES Final Result Performing Organization Address City/[facility]/ZIP Co de Phone Number [facility] [address] [place] [address] * Progesterone (06/23/2024 7:53 AM EST) [facility] Progesterone 42.6 ng/mL LAB IMMUNOASSAY METHOD 06/23/2024 10:10 AM EST [facility] Blood Venous blood specimen / Unknown 06/23/2024 7:53 AM EST 06/23/2024 8:35 AM EST Narrative [facility] - 06/23/2024 10:10 AM EST REF VALUES Male <0.2-0.8 Follicular Phase <0.2-1.5 Luteal Phase 7.4-15.4 Post Menopausal <0.2-0.2 1ST Trimester 12.0-84.0 2ND Trimester 10.2-58.8 3RD Trimester 46.5-160 Progesterone is performed using the Faith [place] Access Immunoassay. Progesterone testing is performed using a different test methodology at [facility] than other [facility]. Direct result comparison should only be made within the same method. Americaroxy Chavez AFRICANA STUDIES PROF[employer] B.V.ATTENDING PATHOLOGIST LAB BLOOD ORDERABLES Final Result Performing Organization Address City/[facility]/ZIP Co de Phone Number [facility] [id number] [place] [address] documented in this encounter Visit Diagnoses Diagnosis Female infertility, unspecified documented in this encounter Care Teams Guest Relations Officer Relationship Specialty Start Date End Date Allyssa Robles, RN Registered Nurse Reproductive Endocrinology and Infertility 12/25/23 documented as of this encounter
--- OUTSIDE RECORDS SUMMARY | 2024-12-06 11:17 | XMS_ITS | Encounter Summary ---
Author Organization [facility] Address [address] [place] [address] [place] [address] Care Team Providers Care Grey Percher Name Role Phone Unavailable Primary Care Provider Unavailabl e Encounter Details Date Type Department Care Team (Late st Contact Info) Description 03/23/2023 Abstract NOMKenisha ZACARIAS [address] [facility] [facility] [place] [phone] Cassy Licea LPN [address] [place] [address] 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 Tobacco Use Types Packs/Day [...] 9:30 AM EDT Ancillary Procedure NOMKenisha ZACARIAS [address] [place] [address] [place] [phone] 12/19/2024 10:00 AM EDT Routine NOMKenisha ZACARIAS [address] [facility] [facility] [place] [phone] Layo Courtney DO [address] [facility] [address] [place], [place] [phone] documented as of this encounter Visit Diagnoses Not on filedocumented in this encounter
--- OUTSIDE RECORDS SUMMARY | 2024-12-06 11:17 | XMS_ITS | Encounter Summary ---
Author Organization [facility] Address [address] [place] [address] Phone Care Team Providers Care Legal Process Specialist Name Role Phone Allyssa Robles RN Unavailable Unavailable Encounter Details Date Type Department Care Team (Late st Contact Info) Description 06/06/2024 Lab Requisition [facility] [address] [place] [phone] America Chavez, LEGAL EXECUTIVE-OFFICE MACHINE SERVICE SUPERVISOR [address] [place] [address] Female infertility, unspecified 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 Tobacco Use [...] LAB IMMUNOASSAY METHOD 06/06/2024 11:56 AM EST [facility] Blood Venous blood specimen / Unknown 06/06/2024 7:00 AM EST 06/06/2024 10:58 AM EST Narrative [facility] - 06/06/2024 11:56 AM EST REF VALUES FOLLICULAR PHASE 20-144 MID CYCLE 64-357 LUTEAL PHASE 56-214 POSTMENOPAUSE < 32 PREPUBERTY < 20 FEMALE 10-18Y 8-110 MALE 10-18Y < 20 ADULT MALE < 40 America Chavez [facility]COM[facility] LAB BLOOD ORDERABLES Final Result Performing Organization Address City/[facility] Phone Number [facility] [address] [place] [address] * Progesterone (06/06/2024 7:00 AM EST) Progesterone 0.8 ng/mL LAB IMMUNOASSAY METHOD 06/10/2024 8:43 PM EST [facility] Comment: Blood Venous blood specimen / Unknown 06/06/2024 7:00 AM EST 06/06/2024 10:58 AM EST Narrative [facility] - 06/10/2024 8:43 PM EST REF VALUES Male <0.2-0.8 Follicular Phase <0.2-1.5 Luteal Phase 7.4-15.4 Post Menopausal <0.2-0.2 1ST Trimester 12.0-84.0 2ND Trimester 10.2-58.8 3RD Trimester 46.5-160 Progesterone is performed using the Faith [place] Access Immunoassay. Progesterone testing is performed using a different test methodology at [facility] other [facility]. Direct result comparison should only be made within the same method. America Chavez [facility] LAB BLOOD ORDERABLES Edite d Result - Final [facility] [address] [place] [address] documented in this encounter Visit Diagnoses Diagnosis Female infertility, unspecified documented in this encounter Care Teams Legal Process Specialist Relationship Specialty Start Date End Date Allyssa Robles, MISHEL Registered Nurse Reproductive Endocrinology and Infertility 12/25/23 documented as of this encounter
--- OUTSIDE RECORDS SUMMARY | 2024-12-06 11:17 | XMS_ITS | Encounter Summary ---
Author Organization [facility] Address [address] [place] [address] Care Team Providers Care Modeler Name Role Phone Unavailable Primary Care Provider Unavailabl e Encounter Details Date Type Department Care Team (Late Contact Info) Description 08/02/2024 Abstract [facility] Yanira ZACARIAS [address] [place], [place] [address] [address] Layo Courtney DO [address] [place] [address] 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 Tobacco Use Types Packs/Day [...] 9:30 AM EDT Ancillary Procedure NOMKenisha ZACARIAS [address] [place], [place] [address] [phone] 12/19/2024 10:00 AM EDT Routine NOMKenisha ZACARIAS [facility] [phone] Layo Courtney DO [facility] [address] [place], [place] [phone] documented as of this encounter Visit Diagnoses Not on filedocumented in this encounter
--- OUTSIDE RECORDS SUMMARY | 2024-12-06 11:17 | XMS_ITS | Encounter Summary ---
Author Organization [facility] Address [address] [place] [address] Phone Care Team Providers Care Nurse Special Name Role Phone Allyssa Robles RN Unavailable Unavailable Encounter Details Date Type Department Care Team (Late st Contact Info) Description 06/07/2024 Lab Requisition [facility] [address] [place] [phone] America Chavez, VIBRATION ENGINEER-OUTSOLE SKIVER [address] [place] [address] Female infertility, unspecified 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 Tobacco Use [...] LAB IMMUNOASSAY METHOD 06/10/2024 8:33 PM EST [facility] Comment: Blood Venous blood specimen / Unknown 06/07/2024 8:45 AM EST 06/07/2024 10:22 AM EST Narrative [facility] - 06/10/2024 8:33 PM EST REF VALUES Male <0.2-0.8 Follicular Phase <0.2-1.5 Luteal Phase 7.4-15.4 Post Menopausal <0.2-0.2 1ST Trimester 12.0-84.0 2ND Trimester 10.2-58.8 3RD Trimester 46.5-160 Progesterone is performed using the [employer] [place] [employer] Access Immunoassay. Progesterone testing is performed using a different test methodology at [facility] than other [facility]. Direct result comparison should only be made within the same method. America Chavez APRNSlanissueOUTSOLE SKIVER LAB BLOOD ORDERABLES Edite d Result - Final Performing Organization Address City/State/[facility] Co de Phone Number [facility] [address] [place] [phone] * Estradiol (06/07/2024 8:45 AM EST) Estradiol 2,870 pg/mL LAB IMMUNOASSAY METHOD 06/07/2024 10:43 AM EST [facility] Blood Venous blood specimen / Unknown 06/07/2024 8:45 AM EST 06/07/2024 10:22 AM EST Narrative [facility] - 06/07/2024 10:43 AM EST REF VALUES FOLLICULAR PHASE 20-144 MID CYCLE 64-357 LUTEAL PHASE 56-214 POSTMENOPAUSE < 32 PREPUBERTY < 20 FEMALE 10-18Y 8-110 MALE 10-18Y < 20 ADULT MALE < 40 America Chavez VIBRATION ENGINEER-OUTSOLE SKIVER LAB BLOOD ORDERABLES Final Result [facility] [address] [place] [address] documented in this encounter Visit Diagnoses Diagnosis Female infertility, unspecified documented in this encounter Care Teams Nurse Special Relationship Specialty Start Date End Date Allyssa Robles, MISHEL Registered Nurse Reproductive Endocrinology and Infertility 12/25/23 documented as of this encounter
--- OUTSIDE RECORDS SUMMARY | 2024-12-06 11:17 | XMS_ITS | Encounter Summary ---
Author Organization [facility] Address [address] [place] [address] Care Team Providers Care Tufting Supervisor Name Role Phone Unavailable Primary Care Provider Unavailabl e Encounter Details Date Type Department Care Team (Late st Contact Info) Description 04/13/2023 Clinisync Result Encounter NOMS External Department Unsolicited Rula Courtney DO [address] [place], [place] [phone] 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 Tobacco Use Types Packs/Day Years [...] 9:30 AM EDT Ancillary Procedure NOMKenisha ZACARIAS [facility] [place] [phone] 12/19/2024 10:00 AM [place] [phone] Rula Courtney DO [address], [place] [phone] documented as of this encounter Procedures Procedure Name Priority Date/Time Associated Diagnosis Comments FL HYSTEROSALPINGOGRAM 10:54 AM EST documented in this encounter Results * FL HYSTEROSALPINGOGRAM (04/13/2023 10:54 AM EST) Anatomical Region Laterality Modality Other 04/13/2023 10:5 4 AM EST Narrative 04/13/2023 10:56 [place] [address] Fluoroscopy Report Signed Patient: OLENA PEREYRA MR#: [id number] : 1995 Acct:[id number] Age/Sex: 27 / F ADM Date: 04/10/23 Loc: LAB Attending Dr: Rula Courtney D.O. Ordering Physician: Rula Courtney D.O. Date of Service: 04/10/23 Procedure(s): FL Hysterosal cath placement Accession Number(s): [id number] cc: Rula Courtney D.O.; Physician,Non-Staff [place] [address] [place] [address] Patient Name: OLENA PEREYRA MRN: [id number] date: 1995 Sex: F Assigned Patient Location: LAB Current Patient Location: LAB Accession/Order Number: [id number] Exam Date: 04/10/2023 14:30 Report Date: 04/13/2023 10:54 At the request of: RULA COURTNEY Procedure: FL Hysterosal cath placement EXAM: FL Hysterosal cath placement HISTORY: Infertility TECHNIQUE: FINDINGS: Please see Operative Report. Electronically authenticated by: RADIOLOGIST LITA Date: 04/13/2023 10:54 Dictated By: Darryn London Signed By: 04/13/23 1056 DD/ 1054 TD/TT: News Copy Editor: Procedure Note Radiology, Radiologist, - 04/13/2023 [place] [address] Fluoroscopy Report Signed Patient: OLENA PEREYRA RMR#: [id number] : 1995Acct:[id number] Age/Sex: 27 / FADM Date: 04/10/23 Loc: LAB Attending Dr: Rula Courtney D.O. Ordering Physician: Rula Courtney D.O. Date of Service: 04/10/23 Procedure(s): FL Hysterosal cath placement Accession Number(s): [id number] cc: Rula Courtney D.O.; Physician,Non-Staff [place] [address] Patient Name: OLENA PEREYRA MRN: [facility]:[id number] date: 1995 Sex: F Assigned Patient Location: LAB Current Patient Location: LAB Accession/Order Number: [id number] Exam Date: 04/10/2023 14:30 Report Date: 04/13/2023 10:54 At the request of: RULA COURTNEY Procedure: FL Hysterosal cath placement EXAM: FL Hysterosal cath placement HISTORY: Infertility TECHNIQUE: FINDINGS: Please see Operative Report. Electronically authenticated by: RADIOLOGIST LITA Date: 04/13/2023 10:54 Dictated By: LitaRadiologist Signed By:04/13/23 1056 DD/ 1054 TD/TT: News Copy Editor: us Rula Courtney DO [facility] Final Result documented in this encounter Visit Diagnoses Not on filedocumented in this encounter
--- OUTSIDE RECORDS SUMMARY | 2024-12-06 11:17 | XMS_ITS | Encounter Summary ---
Author Organization [facility] Address [address] [place] [address] Care Team Providers Care Driller'S Offsider Name Role Phone Unavailable Primary Care Provider Unavailabl e Encounter Details Date Type Department Care Team (Late st Contact Info) Description 11/26/2024 Clinisync Result Encounter NOMS External Department Unsolicited Layo Courtney DO [address] [place], [place] [phone] 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 Tobacco Use Types Packs/Day Years [...] Description 12/19/2024 9:30 AM EDT Ancillary Procedure SHIRA ZACARIAS [facility] [place] [phone] 12/19/2024 10:00 [place] [phone] Layo Courtney DO [address] [place], [place] [address] documented as of this encounter Procedures Procedure Name Priority Date/Time Associated Diagnosis Comments GLUCOSE 1 HOUR Routine 11/26/2024 10:03 AM EDT ALL CBC WITH AUTO DIFF Routine 11/26/2024 10:03 AM EDT documented in this encounter Results * (ABNORMAL) GLUCOSE 1 HOUR (11/26/2024 10:03 AM EDT) GLUCOSE 1 HOUR 156(H) <130 mg/dL TBH 11/26/2024 10:0 3 AM EDT 11/26/2024 10:04 AM EDT Narrative [facility] - 11/26/2024 10:27 AM EDT us Layo Courtney DO LAB BLOOD ORDERABLES Final Resul t [facility] * (ABNORMAL) ALL CBC WITH AUTO DIFF (11/26/2024 10:03 AM EDT) Pathologist [facility] TB WBC 9.2 4.0 - 11.0 10 3/uL TBH TBH RBC 4.32 4.20 - 5.40 10 6/uL TBH TBH HGB 13.6 12.0 - 16.0 g/dL TBH TB HCT 38.9 36.0 - 48.0 % TBH TBH MCV 90.0 81.0 - 99.0 fL TBH TBH MCH 31.5 26.7 - 34.0 pg TBH TBH MCHC 35.0 29.9 - 35.2 g/dL TB TB RDW 12.4 11.0 - 15.0 % TBH [...] Narrative [facility] - 11/26/2024 10:14 AM EDT us Layo Courtney DO [facility] Final Result Performing Organization Address City/State/[facility] Co de Phone Number [facility] TB documented in this encounter Visit Diagnoses Not on filedocumented in this encounter
--- OUTSIDE RECORDS SUMMARY | 2024-12-06 11:17 | XMS_ITS | Encounter Summary ---
Author Organization [facility] Address [address] [place] [address] Care Team Providers Care Manager Performance Name Role Phone Unavailable Primary Care Provider Unavailabl e Encounter Details Date Type Department Care Team (Late st Contact Info) Description 01/22/2024 Abstract NOMKenisha ZACARIAS [facility] [place] [phone] Layo Courtney DO [address] [place], [place] [phone] 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 Tobacco Use Types Packs/Day Years [...] 9:30 AM EDT Ancillary Procedure SHIRA ZACARIAS [facility] [place] [phone] 12/19/2024 10:00 AM EDT Routine NOMKenisha ZACARIAS [facility] [place] [phone] Layo Courtney DO [address] [place], [place] [address] documented as of this encounter Visit Diagnoses Not on filedocumented in this encounter
--- OUTSIDE RECORDS SUMMARY | 2024-12-06 11:17 | XMS_ITS ---
Author Organization [facility] Address [address] [place] [address] Phone Care Team Providers Care Keying Machine Operator Name Role Phone Allyssa Robles RN Unavailable Unavailable Fertility Core Status:Enrolled (Active) Start date:02/24/2024 Enrollment date:02/29/2024 Enrollment reason:Identified from a specialty prescription Current support & services provided:Refill Management, Benefits and PA Management Linked medications:lidocaine/prilocaine (Active), progesterone (Active), transparent dressing () Continued Care and Services Coordination
--- OUTSIDE RECORDS SUMMARY | 2024-12-06 11:17 | XMS_ITS | Encounter Summary ---
Author Organization [facility] Address [address] [place] [address] Care Team Providers Care Python Django Developer Name Role Phone Unavailable Primary Care Provider Unavailabl e Encounter Details Date Type Department Care Team (Late st Contact Info) Description 11/08/2024 Abstract NOMS Yanira ZACARIAS [address] [place] [address] Emilia Donahue MA 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 Tobacco [...] Description 12/19/2024 9:30 AM EDT Ancillary Procedure NOMKenisah ZACARIAS [facility] [place] [phone] 12/19/2024 10:00 AM EDT Routine NOMKenisha ZACARIAS [address] [place] [phone] Layo Courtney DO [address] [place], [place] [address] documented as of this encounter Visit Diagnoses Not on filedocumented in this encounter
--- OUTSIDE RECORDS SUMMARY | 2024-12-06 11:17 | XMS_ITS | Encounter Summary ---
Author Organization [facility] Address [address] [place] [address] Phone Care Team Providers Care Treasury Analyst Name Role Phone Allyssa Robles RN Unavailable Unavailable Encounter Details Date Type Department Care Team (Late st Contact Info) Description 06/23/2024 Lab Requisition [facility] [address] [place] [address] Juan Chavarria MD [address] [facility] Alexia Purcelldelta, [address] [phone] Encounter for test, result unknown 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 [...] LAB IMMUNOASSAY METHOD 06/23/2024 11:04 AM EST [facility] Comment:Low-level positive H CG results can [...] AM EST 06/23/2024 10:43 AM EST Narrative [facility] - 06/23/2024 11:04 AM EST Total HCG measurement is performed using the Faith Cristopher Access Immunoassay which detects intact HCG and free beta HCG subunit. This test is not indicated for use as a tumor marker. HCG testing is performed using a different test methodology at [facility] than other [facility]. Direct result comparison should only be made within the same method. us Juan Chavarria MD LAB BLOOD ORDERABLES Final R esult [facility] [address] [place] [phone] documented in this encounter Visit Diagnoses Diagnosis Encounter for test, result unknown documented in this encounter Care Teams Treasury Analyst Relationship Specialty Start Date End Date Allyssa Robles, RN Registered Nurse Reproductive Endocrinology and Infertility 12/25/23 documented as of this encounter
--- OUTSIDE RECORDS SUMMARY | 2024-12-06 11:17 | XMS_ITS | Encounter Summary ---
Author Organization [facility] Address [address] [place] [address] Phone Care Team Providers Care Worm Picker Name Role Phone Allyssa Robles RN Unavailable Unavailable Encounter Details Date Type Department Care Team (Late st Contact Info) Description 06/30/2024 Lab Requisition [facility] [address] [place] [address] Leigh Ann Tutlte MD 1000 [facility] Alexia Purcellshamrock, [address] [phone] Female infertility, unspecified 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 Tobacco Use [...] LAB IMMUNOASSAY METHOD 06/30/2024 10:41 AM EST [facility] Comment:Low-level positive H CG results can [...] AM EST 06/30/2024 10:01 AM EST Narrative [facility] - 06/30/2024 10:41 AM EST Total HCG measurement is performed using the Faith Cristopher Access Immunoassay which detects intact HCG and free beta HCG subunit. This test is not indicated for use as a tumor marker. HCG testing is performed using a different test methodology at [facility] than other [facility]. Direct result comparison should only be made within the same method. us Leigh Ann Tuttle MD LAB BLOOD ORDERABLES Final Re sult Performing Organization Address City/State/[facility] Co de Phone Number [facility] [address] [place] [phone] documented in this encounter Visit Diagnoses Diagnosis Female infertility, unspecified documented in this encounter Care Teams Worm Picker Relationship Specialty Start Date End Date Allyssa Robles, RN Registered Nurse Reproductive Endocrinology and Infertility 12/25/23 documented as of this encounter
--- OUTSIDE RECORDS SUMMARY | 2024-12-06 11:17 | XMS_ITS | Encounter Summary ---
Author Organization [facility] Address [address] [place] [address] Care Team Providers Care Assistance Representative Name Role Phone Unavailable Primary Care Provider Unavailabl e Encounter Details Date Type Department Care Team (Late Contact Info) Description 11/18/2024 Abstract [facility] Yanira ZACARIAS [address] [place], [place] [address] [address] Layo Courtney DO [address] [place] [address] 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 Tobacco Use Types Packs/Day [...] 9:30 AM EDT Ancillary Procedure [facility]OM[facility]isha ZACARIAS [address] [place], [place] [address] [phone] 12/19/2024 10:00 AM EDT Routine NOM[facility]isha ZACARIAS [facility] [place] [phone] Layo Courtney DO [facility] [place], [place] [phone] documented as of this encounter Visit Diagnoses Not on filedocumented in this encounter
--- OUTSIDE RECORDS SUMMARY | 2024-12-06 11:18 | XMS_ITS | Encounter Summary ---
Author Organization [facility] Address [address] [place] [address] Care Team Providers Care Front End Application Developer Name Role Phone Unavailable Primary Care Provider Unavailabl e Encounter Details Date Type Department Care Team (Late st Contact Info) Description 12/06/2024 Bamboo flowsheet NOM[facility]isha ZACARIAS [address] [place] [address] Layo Courtney DO [address] [place] [address] [place], [id number] 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 Tobacco Use Types Packs/Day Years [...] 9:30 AM EDT Ancillary Procedure NOMKenisha ZACARIAS [facility] [place] [address] 12/19/2024 10:00 AM EDT Routine SHIRA ZACARIAS [address] [place] [address] Layo Courtney DO [address], [id number] documented as of this encounter Visit Diagnoses Not on filedocumented in this encounter
--- OUTSIDE RECORDS SUMMARY | 2024-12-06 11:18 | XMS_ITS | Clinical Summary ---
Author Organization [facility] Address [address] [place] [address] Phone Care Team Providers Care Tool Maintenance Technician Name Role Phone Allyssa Robles RN Unavailable Unavailable Allergies Active Allergy Reactions Criticality Noted Date Comments Latex Rash Low 2023 Nickel Rash Low 2023 Medications nwpyazrg12-zadl- folic-omega3 29-1-400 mg combo pack,tablet and cap,DR [...] EDT Hospital Encounter Valeria Hay [address] [place] [address] ([facility]) Discharge Disposition: Home 10/07/2024 Travel from Last [...] of 1 - Stand miya series) 1998 HPV Vaccines (1 - 3-dose series) 2012 [...] DETAIL ANATOMY Routine 10/07/2024 9:24 AM EDT ([facility]) HEPATITIS C ANTIBODY Routine 2023 10:21 [...] EFW (oz) 12 oz EFW by: Hadlock (DGF-OS-PL-FL) Extended Window Systems Administrator 6.0 mm CM 4.4 mm 36% Nicolaides [...] Normal LVOT view: Normal 3-vessel view: Normal 6-oauspc-zuvctqm view: Normal Heart / Thorax Situs: situs [...] via AssistedReproductive Technology History ====== General History Zarfot400 cm Height (ft)5 ft Height (in)3 in Previous Outcomes Gravida1 Para0 Maternal Assessment Kbuadl007 cm Height (ft)5 ft Height (in)3 in Serutt23 kg Weight (lb)165 lb Weight gain0 kg [...] 87% Hadlock Femur32.4 mm20w 1d 73% Hadlock Yjxaskr65.4 mm 45% Chitty HC / AC1.05 2% Hadlock SLG239 g20w 1d 91% Hadlock EFW (lb)0 lb EFW (oz)12 oz EFW by:Hadlock (LCK-XF-UL-FL) Extended Vp6.0 mm CM4.4 mm 36% Nicolaides Nasal bone4.7 mm Head / Face / Neck Cephalic index0.74 10% Nicolaides Nasal bone:present Extremities / Bony Struc FL / BPD0.74 92% Hadlock FL / HC0.20 96% Hadlock FL / AC0.21 35% Hadlock Other Structures OQA310 bpm Anatomy Cranium:Normal Lateral ventricles:Normal Choroid plexus:Normal [...] view:Normal RVOT view:Normal LVOT view:Normal 3-vessel view:Normal 5-gvuuvf-rwumylm view:Normal Heart / Thorax Situs:situs solitus (normal) [...] LAB IMMUNOASSAY METHOD 2023 7:11 PM EDT [facility] Comment:Results from patient s taking biotin supplements or receiving high-dose biotin therapy should be interpreted with caution due to possible interference with this test. Providers may contact their local laboratory for further information. Blood Venous blood specimen / Unknown Venipuncture / Unknown 2023 10:21 AM EDT 2023 10:21 AM EDT Trish Sun PURCHASING SUPERVISOR-PRESS READER LAB BLOOD ORDERABLES Fin al Result Performing Organization Address [facility] Co de Phone Number [facility] [address] [address] * HIV 1/2 Antigen/Antibody Screen with Reflex to Confirmation (2023 10:21 AM EDT) HIV 1/2 Antigen/Antibo dy Screen with Reflex to Confirmation Nonreactive Nonreactive LAB IMMUNOASSAY METHOD 2023 7:37 PM EDT [facility] Blood Venous blood specimen / Unknown Venipuncture / Unknown 2023 10:21 AM EDT 2023 10:21 AM EDT Narrative [facility] - 2023 7:37 PM EDT HIV Ag/Ab screen is performed using the Siemens Food on the TablellClipMine HIV Ag/Ab Combo assay which detects the presence of HIV p24 antigen as well as antibodies to HIV-1 (Group M and O) and HIV-2. No laboratory evidence of HIV infection. If acute HIV infection is suspected, consider testing for HIV RNA by PCR (viral load). Trish Sun PURCHASING SUPERVISOR-PRESS READER LAB BLOOD ORDERABLES Fin al Result Performing Organization Address [facility] Co de Phone Number [facility] [id number] [place] [phone] from Last 3 Months or Most Recently Relevant to Health Maintenance Insurance [employer] [place] [employer] [place] [employer] Care Teams Tool Maintenance Technician Relationship Specialty Start Date End Date Allyssa Robles, MISHEL Registered Nurse Reproductive Endocrinology and Infertility 12/25/23
[2024-12-06 13:42] LABS: Glucose 1 Hour 143 mg/dL (<180)
[2024-12-06 13:46] LABS: Glucose 2 Hour 132 mg/dL (<155)
[2024-12-06 15:07] LABS: Glucose 3 Hour 81 mg/dL (<140)
== END 2024-12-06 11:14 | disposition home or self-care (01) ==
LOC: LAB 11:14
PROVIDERS: Visit Provider Obstetrics & Gynecology
DX: R73.09 Other abnormal glucose (principal)
CPT/HCPCS: 36415; 82951; 82952

== ENCOUNTER 2024-12-09 13:31 | Observation (INO) | payer OTHER, SELFPAY ==
[2024-12-09 13:42] VITALS: BP 106/62; PULSE 102
== END 2024-12-09 14:33 | disposition home or self-care (01) ==
PROVIDERS: Admitting Provider Obstetrics & Gynecology; Visit Provider Obstetrics & Gynecology
DX: O36.8130 Decreased fetal movements, third trimester, not applicable or unspecified (principal); Z3A.28 28 weeks gestation of pregnancy
CPT/HCPCS: 59025; G0378; G0379

== ENCOUNTER 2025-01-10 15:55 | Outpatient (OUT) | payer OTHER, SELFPAY ==
--- NOTE | 2025-01-10 16:00 | US_ITS ---
[place] [id number] Patient Name: OLENA ROMERO MRN: [id number] date: 1995 Sex: F Assigned Patient Location: US Current Patient Location: Accession/Order Number: [id number] Exam Date: 01/10/2025 16:03 Report Date: 01/10/2025 21:07 At the request of: RULA SMITH DO Procedure: US OB BPP w non-stress Ultrasound biophysical profile INDICATION: from IVF FINDINGS 12/09 score biophysical profile. LONNY 11.8 cm. Heart rate 153 beats per minutes.. Hypoechoic area within the placenta 2.4 x 2.1 x 1.3 cm in size. Hypoechoic focus right retroplacental region 2.2 x 2.3 x 8.2 cm in size. US/US OB BPP w non-stress Impression: 8 out of 8 score biophysical profile Question venous lakes involving the placenta. Recommend follow-up. Impression dictated by: Bernabe Romero M.D. 01/10/2025 9:07 PM [facility]ictation [facility] Electron[facility] authenticated by: [id number] Y Date: 01/10/2025 21:07
--- OUTSIDE RECORDS SUMMARY | 2025-01-10 16:10 | XMS_ITS | CCD ---
Author Organization [facility]iniSyak Care Team Providers Care Automatic Machine Attendant Name Role Phone Rachana LYONS Primary Care Physician SHERWIN ., DR HORTA Attending Unavailable SHERWIN ., DR HORTA Admitting Unavailable SHERWIN ., DR HORTA Consulting Unavailable SHERWIN ., DR HORTA Admitting Unavailable SHERWIN ., DR HORTA Consulting Unavailable SHERWIN ., DR HORTA Attending Unavailable UNLU, RACQUEL Consulting Unavailable Princess Rapp Primary Care Physician [phone] Allyssa Robles RN Unavailable Unavailable Mallory Jauregui [...] TUTTLE Referring Unavailable DONYA ABERNATHY Attending Unavailable SHERWIN, LAYO VINH Referring Unavailable SHERWIN, LAYO Attending Unavailable BRANDY SHEEHAN Attending Unavailable SISSY, BRANDY Attending Unavailable SHERWIN, LAYO Attending Unavailable SHERWIN, LAYO Attending Unavailable BRANDY SHEEHAN Attending Unavailable SHERWIN, LAYO Attending Unavailable SHERWIN, LAYO Attending Unavailable SHERWIN, LAYO Referring Unavailable SHERWIN, LAYO Attending Unavailable SHERWIN, LAYO Attending Unavailable Allergies Allergy Classification Reported Allergen(s) Allergy Type Date of Onset Reaction(s) Facility (20 sources) Azithromycin; Translations: [azithromycin] Drug Allergy 03-16-2023 Unknown (qualifier value), Unknown [facility] Work Phone: (20 sources) Latex; Translations: [Latex] Drug allergy 03-16-2023 Rash [facility] Work Phone: (20 sources) nickel; Translations: [Nickel] Drug Allergy 03-16-2023 Rash, Itching [facility] Work Phone: Medications Current Medications Medication Drug Class(es) Dates Sig (Normalized) Sig (Original) cephalexin 500 mg oral capsule (14 sources) Cephalosporin Antibacterial Start: 09-21-2024 End: 12-06-2024 take 1 capsule by mouth in the morning cephalexin (Keflex) 500 MG capsule Take 500 mg by mouth in the morning and 500 mg before bedtime. 09/21/2024 12/06/2024 Discontinued cetirizine hydrochloride 10 mg oral tablet (14 sources) Histamine-1 Receptor Antagonist Start: 10-04-2024 End: 10-04-2025 take 1 tablet by mouth once daily cetirizine (ZyrTEC ALLERGY) 10 MG tablet Indications: Pruritus of in second trimester ([facility]) Take 1 tablet (10 mg) by mouth Daily 30 tablet 11 10/04/2024 12/06/2024 Discontinued cholecalciferol 0.125 mg oral capsule (7 sources) [...] Do not use to face, armpits, groin., [facility]/pharmacy #[id number], 162, cm, 10/02/23 11:23:00 EDT, Height/Length Dosing, 76.7, kg, 10/02/23 11:23:00 EDT, Weight Dosing Start Date: 10/02/23 Status: Ordered Start: 02-10-2022 clobetasol pro pionate 0.05% top oint 1 bonifacio, Topical, BID, 45 gram, Refill(s) 0, Apply a thin film to affected area. Do not use to face, armpits, groin., [facility], 160, cm, 07/24/21 17:02:00 EDT, Height/Length Dosing, 71.6, kg, 07/24/21 17:02:00 EDT, Weight Dosing Start Date: 02/10/22 Status: Ordered Start: 01-29-2021 clobetasol pro pionate 0.05% top oint 1 bonifacio, Topical, BID, 45 gram, Refill(s) 1, [facility] 1985, 160, cm, 01/29/21 16:48:00 EDT, Height/Length Dosing, 82.2, kg, 01/29/21 16:48:00 EDT, Weight Dosing Start Date: 01/29/21 Status: Ordered cyclobenzaprine hydrochloride 10 mg oral tablet (11 sources) Muscle Relaxant Start: 10-17-2024 End: 12-06-2024 take 0.5 tablet by mouth three times daily as needed for muscle spasms cyclobenzaprine (Flexeril) 10 MG tablet Indications: Acute bilateral low back pain without sciatica Take 0.5 tablets (5 mg) by mouth 3 (three) times a day as needed for muscle spasms for up to 10 days 30 tablet 2 10/17/2024 12/06/2024 Discontinued Start: 02-19-2023 take 1 tablet by debra th three times daily as needed for muscle spasms cyclobenzaprine 10 mg Tab 10 mg = 1 tab(s), Oral, TID, PRN for spasm, # 30 tab(s), Refills(s) 1, Pharmacy: [facility]/pharmacy #[id number], 162, cm, 02/19/23 7:51:00 EDT, Height/Length [...] Refill(s) 6, Therapeutic tx; may refill early, [facility] 1986, 160, cm, 09/27/20 16:16:00 EDT, Height/Length Dosing, 80.8, kg, 09/27/20 16:16:00 EDT, Weight Dosing Start Date: 09/27/20 Status: Ordered famotidine 20 mg oral tablet (15 sources) Histamine-2 Receptor Antagonist Start: 10-04-2024 End: 12-06-2024 take 1 tablet by mouth once daily famotidine (Pepcid) 20 MG tablet Indications: Gastroesophageal Reflux Disease , Heartburn Take 1 tablet (20 mg) by mouth Daily 30 tablet 11 10/04/2024 12/06/2024 Discontinued Start: 01-29-2021 take 1 mg by mouth o nce daily at bedtime Pepcid 40 mg Tab mg tab(s), Oral, Once a day (at bedtime), Refills(s) 0 Start Date: 01/29/21 Status: Ordered Flonase 0.05 mg/inh nasal spray (1 source) Start: 09-30-2018 Flonase 0.05 mg/inh nasal spray 50 microgram, Nasal, Daily, Refill(s) 0 Start Date: 09/30/18 Status: Ordered hydrOXYzine pamoate 25 mg oral capsule (12 sources) Antihistamine Start: 10-11-2024 End: 12-06-2024 take 1 capsule by mouth every six hours hydrOXYzine pamoate (Vistaril) 25 MG capsule Indications: Pruritus Take 1 capsule (25 mg) by mouth every 6 (six) hours if needed for itching for up to 10 days 30 capsule 10/11/2024 12/06/2024 Discontinued oral tablet (1 source) Start: 09-27-2020 take 1 tablet by mouth once daily oral tablet 1 tab(s), Oral, Daily, 84 tab(s), Refill(s) 6, Therapeutic tx; may refill early, [facility], 160, cm, 09/27/20 16:16:00 EDT, Height/Length Dosing, 80.8, kg, 09/27/20 16:16:00 EDT, Weight Dosing Start Date: 09/27/20 Status: Ordered lidocaine 25 mg/ml / prilocaine 25 mg/ml topical cream (16 sources) Antiarrhythmic, Amide Local Anesthetic Start: 02-24-2024 End: 02-23-2025 lidocaine-prilocai ne (Emla) 2.5-2.5 % cream Indications: Female infertility [...] 0 Start Date: 01/29/21 Status: Ordered methylPREDNISolone (14 sources) Corticosteroid Start: 10-04-2024 End: 12-06-2024 methylPREDNISolone (Medrol Dospak) 4 MG tablets Indications: Pruritus of in second trimester ([facility]) Day 1: 6 tablets Day 2: 5 tablets Day 3: 4 tablets Day 4: 3 tablets Day 5: 2 tablets Day 6: 1 tablet 21 tablet 10/04/2024 12/06/2024 Discontinued Start: 10-04-2024 methylPREDNISo lone (Medrol Dospak) 4 MG tablets Indications: Pruritus of in second trimester ([facility]) Day 1: 6 tablets Day 2: 5 [...] hour of each main meal containing fat, [facility] 1986, 160, cm, 07/24/21 17:02:00 EDT, [...] Status: Ordered MV-Min-Fe Fum-FA-DHA ( 1 PO) (20 sources) MV-Min-Fe Fum-FA-DHA ( 1 PO) Take 1 each by mouth Daily Active [id number]-soio-mur ic-omega3 29-1-400 mg combo pack,tablet and cap,DR (14 sources) ivkccewc40-ydua- f olic-omega3 29-1-400 mg combo pack,tablet and [...] Daily, # 90 tab(s), Refills(s) 3, Pharmacy: [facility]/pharmacy #[id number], 162, cm, 10/02/23 11:23:00 EDT, Height/Length Dosing, 76.7, kg, 10/02/23 11:23:00 EDT, Weight Dosing Start Date: 10/02/23 Status: Ordered Start: 08-27-2023 take 2 tablets by mo uth once daily Topamax 25 mg Tab 50 mg = 2 tab(s), Oral, Daily, # 180 tab(s), Refills(s) 0, Pharmacy: [facility]/pharmacy #[id number], 162, cm, 08/27/23 17:49:00 EDT, Height/Length [...] 4-7, # 90 tab(s), Refills(s) 1, Pharmacy: [facility]/pharmacy #[id number], 162, cm, 02/19/23 7:51:00 EDT, Height/Length [...] [Female infertility, unspecified] Onset: 2023 02-09-2024 Chronic Genitourinary symptoms and ill-defined conditions (4 sources) Leukocytes in urine; Translations: [Other abnormal findings in urine] 12-19-2024 Episodic Headache; including migraine (15 sources) Headache; Translations: [Headache, unspecified] Onset: 02-19-2023 Episodic Joint disorders and dislocations; trauma-related (6 sources) Tear of medial meniscus of knee 11-12-2015 Episodic Malaise and fatigue (7 sources) Fatigue; Translations: [Other fatigue] Onset: 02-19-2023 09-30-2018 Episodic Menstrual disorders (8 sources) Irregular menstruation, unspecified; Translations: [Menorrhagia] Onset: 07-26-2022 Chronic Other complications of (2 sources) Conceived by in vitro fertilization; Translations: [Supervision of resulting from assisted reproductive technology, third trimester] 01-03-2025 Episodic Other endocrine disorders (1 source) Polycystic [...] 10-13-2019 Episodic Other and delivery including normal (20 sources) ; Translations: [Encounter for supervision of [...] [26 weeks gestation of ] 11-08-2024 Episodic Residual codes; unclassified (2 sources) Gestation period, 27 weeks; Translations: [27 weeks gestation of ] 12-06-2024 Episodic Residual codes; unclassified (2 sources) Gestation period, 29 weeks; Translations: [29 weeks gestation of ] 12-19-2024 Episodic Residual codes; unclassified (2 sources) Gestation period, 31 weeks; Translations: [31 weeks gestation of ] 01-03-2025 Episodic Screening and history of mental health [...] NEGATED: Highlighted row has been ruled out!Unclassified (20 sources) No known active problems 11-02-2023 Results Test Name Value Interpretation Reference Range Facility Urinalysis macro (dipstick) panel (U)on 01-03-2025 Bilirubin, UA Negative Negative - 4(70) +++ mg/dL [facility] Blood, UA Negative Negative - 50 Jose/mcL [facility] Clarity, UA Clear [facility] Color, UA Yellow [facility] Glucose, UA Trace Negative - 2000(110) ++++ mg/dL [facility] Interpretation and review of laboratory results Abnormal [facility] Ketones, UA Negative Negative - 160(16) ++++ mg/dL [facility] Leukocytes, UA Positive Negative - 500+++ Onel/mcL [facility] Nitrite, UA Negative Negative - Positive [facility] pH, UA 8 5 - 9 [facility] Protein, UA Negative Negative - 2000(20) ++++ mg/dL [facility] Spec Grav, UA 1.015 1 - 1.03 [facility] Urobilinogen, UA 1.0 0.2 - 12 mg/dL [facility] US OB FOLLOW UP TRANSABDOMIN AL APPROACHon 12-19-2024 US OB FOLLOW UP TRANSABDOMINAL APPROACH EXAM: US OB FOLLOW UP TRANSABDOMINAL APPROACH HISTORY: Inconsistent size, IVF. COMPARISON: None available. TECHNIQUE: Two-dimensional transabdominal grayscale ultrasound imaging of the pelvis was performed. FINDINGS: Gestation: Single Presentation: Cephalic Cardiac Activity: 130 beats per minute Amniotic Fluid Index: 19.5 cm MEASUREMENTS: BPD: 7.7 cm EGA: 31 weeks 0 days HC: 27.6 cm EGA: 30 weeks 1 days AC: 25.8 cm EGA: 30 weeks 0 days FL: 6.0 cm EGA: 31 weeks 2 days HC/AC Ratio: 1.07 The gestational age by today's ultrasound is 30 weeks 4 days (+/- 15 days gestation). Estimated Weight: 1581 grams, +/- 237 grams ( 3 lb 8 oz). Weight Percentile for gestational age: 65 % IMPRESSION: 1. Single, live intrauterine gestation 29 weeks, 5 days by LMP. Today's ultrasound measurements correlate with a gestational age of 30 weeks 4 days. Estimated weight is 1581 grams, +/- 237 grams ( 3 lb 8 oz) which correlates to 65 %. BROOKE by today's ultrasound is 02/23/2025. Interpreted by: Electronically signed by TOÑITO FRIEND II, MD, PHD at 22-Dec-2024 08:03:51 AM [facility] Normal Not Available Comment on above: Order Comment: US OB SCAN FOR GROWTH Estimated Date of Delivery: 03/01/25 Gestational Age as of 12/06/2024: 27w6d Urinalysis macro (dipstick) panel (U)on 12-19-2024 Bilirubin, UA Negative Negative - 4(70) +++ mg/dL [facility] Blood, UA Positive Negative - 50 Jose/mcL [facility] Clarity, UA Clear [facility] Color, UA Yellow [facility] Glucose, UA Negative Negative - 1999(110) ++++ mg/dL [facility] Interpretation and review of laboratory results Abnormal [facility] Ketones, UA Negative Negative - 160(16) ++++ mg/dL [facility] Leukocytes, UA Positive Negative - 500+++ Onel/mcL [facility] Comment on above: 3+ Nitrite, UA Negative Negative - Positive [facility] pH, UA 6 5 - 9 [facility] Protein, UA Positive Negative - 1999(20) ++++ mg/dL [facility] Spec Grav, UA 1.03 1 - 1.03 [facility] Urobilinogen, UA 1.0 0.2 - 12 mg/dL [facility] GLUCOSE TOLERANCE 3 HOURon 0 12-06-2024 GLUCOSE TOLERANCE 3 HOUR mg/dL [facility] Comment on above: GLU FAST 90 (<95) Co l: 12/06/24 1126 GLU 1HR 143 (<180) Col: 12/06/24 1235 GLU 2HR 132 (<155) Col: 12/06/24 1327 GLU 3HR 81 (<140) Col: 12/06/24 1432 [facility] Urinalysis macro (dipstick) panel (U)on 12-06-2024 Bilirubin, UA Negative Negative - 4(70) +++ mg/dL [facility] Blood, UA Negative Negative - 50 Jose/mcL [facility] Clarity, UA Clear [facility] Color, UA Yellow [facility] Glucose, UA Negative Negative - 1999(110) ++++ mg/dL [facility] Interpretation and review of laboratory results Abnormal [facility] Ketones, UA Negative Negative - 160(16) ++++ mg/dL [facility] Leukocytes, UA 3+ Negative - 500+++ Onel/mcL [facility] Nitrite, UA Negative Negative - Positive [facility] pH, UA 8 5 - 9 [facility] Protein, UA Negative Negative - 1999(20) ++++ mg/dL [facility] Spec Grav, UA 1.015 1 - 1.03 [facility] Urobilinogen, UA 1.0 0.2 - 12 mg/dL [facility] ALL CBC WITH AUTO DIFFon BASOPHILS ABSOLUTE AUTO 0 N [facility] Basophils/100 WBC (Bld) 0.3 % 0.2 - 2.0 % [facility] Eosinophils/100 WBC (Bld) 1.1 % 0.9 - 7.0 % [facility] Erythrocyte distribution width (RBC) [Ratio] 12.4 % 11.0 - 15.0 % [facility] Hematocrit (Bld) [Volume fraction] 38.9 % 36.0 - 48.0 % [facility] Hemoglobin (Bld) [Mass/Vol] 13.6 g/dL 12.0 - 16.0 g/dL [facility] IMMATURE GRANULOCYTES ABS AUTO 0.13 High [facility] Immature granulocytes/100 WBC (Bld) 1.4 % High 0.0 - 0.5 % [facility] Interpretation and review of laboratory results Abnormal [facility] LYMPHOCYTES ABSOLUTE AUTO 1.7 [facility] Lymphocytes/100 WBC (Bld) 18.9 % Low 20.5 - 60. 0 % [facility] MCH (RBC) [Entitic mass] 31.5 pg 26. 7 - 34.0 pg [facility] MCHC (RBC) [Mass/Vol] 35 g/dL 29.9 - 35.2 g/dL [facility] MCV (RBC) [Entitic vol] 90 fL 81.0 - 99.0 fL [facility] MONOCYTES ABSOLUTE AUTO 0.4 N [facility] Monocytes/100 WBC (Bld) 4.6 % 1.7 - 12.0 % [facility] NEUTROPHILS ABSOLUTE AUTO 6.8 High [facility] Neutrophils/100 WBC (Bld) 73.7 % 43.0 - 75. 0 % [facility] Platelet mean volume (Bld) [Entitic vol] 11.3 fL 9.5 - 13.5 fL [facility] TBH EO # 0.1 [facility] PLT 142 Low [facility] RBC 4.32 [facility] WBC 9.2 [facility] Urinalysis macro (dipstick) panel (U)on 11-09-2024 Bilirubin, UA Negative Negative - 4(70) +++ mg/dL [facility] Blood, UA Negative Negative - 50 Jose/mcL [facility] Clarity, UA Clear [facility] Color, UA Yellow [facility] Glucose, UA Negative Negative - 2000(110) ++++ mg/dL [facility] Interpretation and review of laboratory results Normal [facility] Ketones, UA Negative Negative - 160(16) ++++ mg/dL [facility] Leukocytes, UA Negative Negative - 500+++ Onel/mcL [facility] Nitrite, UA Negative Negative - Positive [facility] pH, UA 5.5 5 - 9 [facility] Protein, UA Negative Negative - 1999(20) ++++ mg/dL [facility] Spec Grav, UA 1.025 1 - 1.03 [facility] Urobilinogen, UA 1.0 0.2 - 12 mg/dL [facility] Urinalysis macro (dipstick) panel (U)on 10-17-2024 Bilirubin, UA Negative Negative - 4(70) +++ mg/dL [facility] Blood, UA Negative Negative - 50 Jose/mcL [facility] Clarity, UA Clear [facility] Color, UA Yellow [facility] Glucose, UA Negative Negative - 1999(110) ++++ mg/dL [facility] Interpretation and review of laboratory results Abnormal [facility] Ketones, UA Negative Negative - 160(16) ++++ mg/dL [facility] Leukocytes, UA Positive Negative - 500+++ Onel/mcL [facility] Comment on above: small Nitrite, UA Negative Negative - Positive [facility] pH, UA 7 5 - 9 [facility] Protein, UA Negative Negative - 1999(20) ++++ mg/dL [facility] Spec Grav, UA 1.015 1 - 1.03 [facility] Urobilinogen, UA 0.2 0.2 - 12 mg/dL [facility] ALL CBC WITH AUTO DIFFon BASOPHILS ABSOLUTE AUTO 0 N [facility] Basophils/100 WBC (Bld) 0.2 % 0.2 - 2.0 % [facility] Eosinophils/100 WBC (Bld) 3.2 % 0.9 - 7.0 % [facility] Erythrocyte distribution width (RBC) [Ratio] 12.5 % 11.0 - 15.0 % [facility] Hematocrit (Bld) [Volume fraction] 37.9 % 36.0 - 48.0 % [facility] Hemoglobin (Bld) [Mass/Vol] 13.2 g/dL 12.0 - 16.0 g/dL [facility] IMMATURE GRANULOCYTES ABS AUTO 0.14 High [facility] Immature granulocytes/100 WBC (Bld) 1.5 % High 0.0 - 0.5 % [facility] Interpretation and review of laboratory results Abnormal [facility] LYMPHOCYTES ABSOLUTE AUTO 2 [facility] Lymphocytes/100 WBC (Bld) 20.8 % 20.5 - 60. 0 % [facility] MCH (RBC) [Entitic mass] 30.9 pg 26. 7 - 34.0 pg [facility] MCHC (RBC) [Mass/Vol] 34.8 g/dL 29.9 - 35.2 g/dL [facility] MCV (RBC) [Entitic vol] 88.8 fL 81.0 - 99.0 fL [facility] MONOCYTES ABSOLUTE AUTO 0.7 N [facility] Monocytes/100 WBC (Bld) 7.2 % 1.7 - 12.0 % [facility] NEUTROPHILS ABSOLUTE AUTO 6.3 [facility] Neutrophils/100 WBC (Bld) 67.1 % 43.0 - 75. 0 % [facility] Platelet mean volume (Bld) [Entitic vol] 11.1 fL 9.5 - 13.5 fL [facility] TBH EO # 0.3 [facility]H PLT 153 [facility] RBC 4.27 [facility] WBC 9.4 [facility] US OB DETAIL ANATOMYon 10-07-2024 US OB [...] EFW (oz) 12 oz EFW by: Hadlock ([id number]) Extended Labor Service Representative 6.0 mm CM 4.4 mm [...] Normal LVOT view: Normal 3-vessel view: Normal 6-cjlbkh-bkekoic view: Normal Heart / Thorax Situs: situs [...] leg: Normal L (more content not included)... [facility] US for pregnancyon 5 Interpreted by: Ad Ovalle Indication ======== Screening [...] EFW (oz) 12 oz EFW by: Hadlock ([id number]) Extended Labor Service Representative 6.0 mm CM 4.4 mm [...] Normal LVOT view: Normal 3-vessel view: Normal 1-iwgsiw-emrjmln view: Normal Heart / Thorax Situs: situs [...] Assisted Reproductive Technology History ====== General History [id number] cm Height (ft)5 ft Height (in)3 in Previous Outcomes Gravida1 Para0 Maternal Assessment Ofakkc980 cm Height (ft)5 ft Height (in)3 in Vfrtyq80 kg Weight (lb)165 lb Weight gain0 kg [...] 87% Hadlock Femur32.4 mm20w 1d 73% Hadlock Fptsolq30.4 mm 45% Chitty HC / AC1.05 2% Hadlock LEE887 g20w 1d 91% Hadlock EFW (lb)0 lb EFW (oz)12 oz EFW by:Hadlock ([id number]) Extended Vp6.0 mm CM4.4 mm 36% Nicolaides Nasal bone4.7 mm Head / Face / Neck Cephalic index0.74 10% Nicolaides Nasal bone:present Extremities / Bony Struc FL / BPD0.74 92% Hadlock FL / HC0.20 96% Hadlock FL / AC0.21 35% Hadlock Other Structures XDV991 bpm Anatomy Cranium:Normal Lateral ventricles:Normal Choroid plexus:Normal [...] view:Normal RVOT view:Normal LVOT view:Normal 3-vessel view:Normal 5-hwwell-fmvditm view:Normal Heart / Thorax Situs:situs solitus (normal) [...] Lt lower leg:Normal (more content not included)... [facility] Work Phone: Source Facility: [facility] [place] [place] Interpreted by: Ad Ovalle Indication ======== Screening [...] EFW (oz) 12 oz EFW by: Hadlock ([id number]) Extended Labor Service Representative 6.0 mm CM 4.4 mm [...] Normal LVOT view: Normal 3-vessel view: Normal 0-lcxxyi-sqwjnlh view: Normal Heart / Thorax Situs: situs [...] Radiology, Radiologist, MD - 10/07/2024 Source Facility: [facility] [place] [place] Interpreted by: Ad Ovalle Indication ======== Screening [...] EFW (oz) 12 oz EFW by: Hadlock ([id number]) Extended Labor Service Representative 6.0 mm CM 4.4 mm [...] Normal LVOT view: Normal 3-vessel view: Normal 7-hgfqxc-yciqcox view: Normal Heart / Thorax Situs: situs [...] Normal Lt forear (more content not included)... [facility] Radiology Study observation (narrative) [facility] Work Phone: Radiology Study observation (narrative) [facility] US for pregnancyOrdered By: Ad Ovalle on 10-07-2024 [facility] Work Phone: US for pregnancyOrdered By: Radiologist Radiology on 10-07-2024 [facility] Work Phone: RECURRENT VAGINITIS (HTRX)on 09-07-2024 ATOPOBIUM VAGINAE 0 [facility] ATOPOBIUM VAGINAE Not detected [facility] BVAB 2,3 (BACTERIAL VAGINOSIS ASSOCIATED BACTERIA 2, 3); MOBILUNCUS SPP 0 [facility] BVAB 2,3 (BACTERIAL VAGINOSIS ASSOCIATED BACTERIA 2, 3); MOBILUNCUS SPP Not detected [facility] PRESTON ALBICANS, PARAPSILOSIS, TROPICALIS 0 [facility] PRESTON ALBICANS, PARAPSILOSIS, TROPICALIS Not detected [facility] PRESTON GLABRATA 0 [facility] PRESTON GLABRATA Not detected [facility] PRESTON KRUSEI 0 [facility] PRESTON KRUSEI Not detected [facility] CHLAMYDIA TRACHOMATIS 0 [facility] CHLAMYDIA TRACHOMATIS Not detected N [facility] GARDNERELLA VAGINALIS 0 [facility] GARDNERELLA VAGINALIS Not detected N [facility] MEGASPHAERA (TYPES 1, 2) 0 [facility] MEGASPHAERA (TYPES 1, 2) Not detected [facility] MYCOPLASMA GENITALIUM 0 [facility] MYCOPLASMA GENITALIUM Not detected N [facility] NEISSERIA GONORRHOEAE 0 [facility] NEISSERIA GONORRHOEAE Not detected N [facility] TRICHOMONAS VAGINALIS 0 [facility] TRICHOMONAS VAGINALIS Not detected N [facility] Urinalysis macro (dipstick) panel (U)on 09-06-2024 Bilirubin, UA Negative Negative - 4(70) +++ mg/dL [facility] Blood, UA Negative Negative - 50 Jose/mcL [facility] Clarity, UA Clear [facility] Color, UA Yellow [facility] Glucose, UA Negative Negative - 1999(110) ++++ mg/dL [facility] Interpretation and review of laboratory results Abnormal [facility] Ketones, UA Negative Negative - 160(16) ++++ mg/dL [facility] [facility] Leukocytes, UA Positive Negative - 500+++ Onel/mcL [facility] Comment on above: small Nitrite, UA Negative Negative - Positive [facility] pH, UA 6 5 - 9 [facility] Protein, UA Negative Negative - 1999(20) ++++ mg/dL [facility] Spec Grav, UA 1.03 1 - 1.03 [facility] Urobilinogen, UA 0.2 0.2 - 12 mg/dL [facility] ALL CBC WITH AUTO DIFFon BASOPHILS ABSOLUTE AUTO 0 N [facility] Basophils/100 WBC (Bld) 0.2 % 0.2 - 2.0 % [facility] Eosinophils/100 WBC (Bld) 2.9 % 0.9 - 7.0 % [facility] Erythrocyte distribution width (RBC) [Ratio] 12 % 11.0 - 15.0 % [facility] Hematocrit (Bld) [Volume fraction] 39.3 % 36.0 - 48.0 % [facility] Hemoglobin (Bld) [Mass/Vol] 13.6 g/dL 12.0 - 16.0 g/dL [facility] IMMATURE GRANULOCYTES ABS AUTO 0.06 High [facility] Immature granulocytes/100 WBC (Bld) 0.7 % High 0.0 - 0.5 % [facility] Interpretation and review of laboratory results Abnormal [facility] LYMPHOCYTES ABSOLUTE AUTO 2.1 [facility] Lymphocytes/100 WBC (Bld) 25.4 % 20.5 - 60. 0 % [facility] MCH (RBC) [Entitic mass] 30.2 pg 26. 7 - 34.0 pg [facility] MCHC (RBC) [Mass/Vol] 34.6 g/dL 29.9 - 35.2 g/dL [facility] MCV (RBC) [Entitic vol] 87.3 fL 81.0 - 99.0 fL [facility] MONOCYTES ABSOLUTE AUTO 0.5 N [facility] Monocytes/100 WBC (Bld) 5.8 % 1.7 - 12.0 % [facility] NEUTROPHILS ABSOLUTE AUTO 5.5 [facility] Neutrophils/100 WBC (Bld) 65 % 43.0 - 75. 0 % [facility] Platelet mean volume (Bld) [Entitic vol] 10.9 fL 9.5 - 13.5 fL [facility] TBH EO # 0.2 [facility] TBH PLT 151 [facility] RBC 4.5 [facility] WBC 8.4 [facility] Urinalysis macro (dipstick) panel (U)on 08-08-2024 Bilirubin, UA Negative Negative - 4(70) +++ mg/dL [facility] Blood, UA Negative Negative - 50 Jose/mcL [facility] Clarity, UA Clear [facility] Color, UA Yellow [facility] Glucose, UA Negative Negative - 1999(110) ++++ mg/dL [facility] Interpretation and review of laboratory results Abnormal [facility] Ketones, UA Negative Negative - 160(16) ++++ mg/dL [facility] Leukocytes, UA Positive Negative - 500+++ Onel/mcL [facility] Comment on above: small Nitrite, UA Negative Negative - Positive [facility] pH, UA 6 5 - 9 [facility] Protein, UA Negative Negative - 1999(20) ++++ mg/dL [facility] Spec Grav, UA 1.025 1 - 1.03 [facility] Urobilinogen, UA 0.2 0.2 - 12 mg/dL [facility] HCG ( test) Ql (U)o n 07-29-2024 Interpretation and review of laboratory results Abnormal [facility] Preg Test, Ur Positive Negative [facility] Urinalysis macro (dipstick) panel (U)on 07-29-2024 Bilirubin, UA Negative Negative - 4(70) +++ mg/dL [facility] Blood, UA Positive Negative - 50 Jose/mcL [facility] Comment on above: trace Clarity, UA Clear [facility] Color, UA Yellow [facility] Glucose, UA Negative Negative - 1999(110) ++++ mg/dL [facility] Interpretation and review of laboratory results Abnormal [facility] Ketones, UA Negative Negative - 160(16) ++++ mg/dL [facility] Leukocytes, UA Positive Negative - 500+++ Onel/mcL [facility] Comment on above: small Nitrite, UA Negative Negative - Positive [facility] pH, UA 5.5 5 - 9 [facility] Protein, UA Negative Negative - 2000(20) ++++ mg/dL [facility] Spec Grav, UA 1.03 1 - 1.03 [facility] Urobilinogen, UA 0.2 0.2 - 12 mg/dL [facility] PROGESTERONEon 07-12-2024 PROGESTERONE 53.5 ng/mL Normal [facility] Comment on above: Result Comment: Refe rence Ranges Female Follicular Phase < 1.0 Luteal Phase 2.6-21.5 Post menopausal < 0.5 1st Trimester 4.1-34.0 2nd Trimester 24.0-76.0 3rd Trimester 52.0-302.0 Performed By: #### 7 45 #### [facility] [address], [address] [place] [id number] Dehydrogenation Supervisor: Alexey Boogie MD OB TRANSVAGINALon 025 OB TRANSVAGINAL Interpreted by: [...] evaluation for early dating. View: Sufficient Normal [facility] Choriogonadotropin.beta subu niton 06-30-2024 HCG.beta subunit Qn 6575 m[IU]/mL High <5 Un [facility] Comment on above: Order Comment: Total HCG measurement is performed using the Faith NoRedInk Access Immunoassay which detects intact HCG and free beta HCG subunit. This test is not indicated for use as a tumor marker. HCG testing is performed using a different test methodology at [facility] than other [facility]. Direct result comparison should only [...] By: #### 2 1198-7 #### JOSEPH ESQUIVEL ([id number]) [facility] ([facility]) [address] [place] [address] Choriogonadotropin.beta subu niton 06-23-2024 HCG.beta subunit Qn 330 m[IU]/mL High <5 [facility] Comment on above: Order Comment: Total HCG measurement is performed using the Faith NoRedInk Access Immunoassay which detects intact HCG and free beta HCG subunit. This test is not indicated for use as a tumor marker. HCG testing is performed using a different test methodology at [facility] than other [facility]. Direct result comparison should only [...] By: #### 2 1198-7 #### JOSEPH ESQUIVEL ([id number]) [facility] ([facility]) [address] [place] [address] Estradiolon 06-23-2024 E2 [Mass/Vol] 378 pg/mL [facility] Comment on above: Order Comment: REF V ALUES FOLLICULAR PHASE 20-144 MID CYCLE 64-357 LUTEAL PHASE 56-214 POSTMENOPAUSE < 32 PREPUBERTY < 20 FEMALE 10-18Y 8-110 MALE 10-18Y < 20 ADULT MALE < 40 Estradiol measurement is performed using the Faith NoRedInk Access Estradiol Immunoassay. Estradiol testing is performed using a different test methodology at [facility] than other [facility]. Direct result comparison should only be made within the same method. Performed By: #### 2 243-4 #### JOSEPH ESQUIVEL ([id number]) [facility] ([facility]) [address] [place] [id number] Progesteroneon 06-23-2024 Progesterone [Mass/Vol] 42.6 ng/mL Normal [facility] Comment on above: Order Comment: REF V ALUES Male <0.2-0.8 Follicular Phase <0.2-1.5 Luteal Phase 7.4-15.4 Post Menopausal <0.2-0.2 1ST Trimester 12.0-84.0 2ND Trimester 10.2-58.8 3RD Trimester 46.5-160 Progesterone is performed using the Faith NoRedInk Access Immunoassay. Progesterone testing is performed using a different test methodology at [facility] than other [facility]. Direct result comparison should only be made within the same method. Performed By: #### 2 839-9 #### JOSEPH ESQUIVEL ([id number]) [facility] ([facility]) [address] [place], [place] [id number] No Panel Informationon 06-13 Juan Chavarria MD [...] Preop diagnosis: Infertility Post op diagnosis: Same Radio Time Salesperson: none Depth: 7 cm Curve: anterior Distance [...] as documented in the fellow's note. Juan Zamora Aura 06/13/24 11:24 AM [facility] RIS [facility] Work Phone: Progesteroneon 06-13-2024 Progesterone [Mass/Vol] 45.0 ng/mL Normal [facility] Comment on above: Order Comment: REF V ALUES Male <0.2-0.8 Follicular Phase <0.2-1.5 Luteal Phase 7.4-15.4 Post Menopausal <0.2-0.2 1ST Trimester 12.0-84.0 2ND Trimester 10.2-58.8 3RD Trimester 46.5-160 Progesterone is performed using the Faith NoRedInk Access Immunoassay. Progesterone testing is performed using a different test methodology at [facility] than other [facility]. Direct result comparison should only be made within the same method. Performed By: #### 2 839-9 #### ORA MOHAN ([id number]) [facility] ([facility]) [address] [place] [address] Estradiolon 06-07-2024 E2 [Mass/Vol] 2870 pg/mL Normal [facility] Comment on above: Order Comment: REF V ALUES FOLLICULAR PHASE 20-144 MID CYCLE 64-357 LUTEAL PHASE 56-214 POSTMENOPAUSE < 32 PREPUBERTY < 20 FEMALE 10-18Y 8-110 MALE 10-18Y < 20 ADULT MALE < 40 Performed By: #### 2 243-4 #### JOSEPH ESQUIVEL ([id number]) [facility] ([facility]) [address] [place] [address] Progesteroneon 06-07-2024 Progesterone [Mass/Vol] 0.4 ng/mL Normal [facility] Comment on above: Order Comment: REF V ALUES Male <0.2-0.8 Follicular Phase <0.2-1.5 Luteal Phase 7.4-15.4 Post Menopausal <0.2-0.2 1ST Trimester 12.0-84.0 2ND Trimester 10.2-58.8 3RD Trimester 46.5-160 Progesterone is performed using the Faith NoRedInk Access Immunoassay. Progesterone testing is performed using a different test methodology at [facility] than other [facility]. Direct result comparison should only be made within the same method. Result Comment: Ref Values Male <0.3- 1.2 Follicular Phase <0.3- 1.4 Luteal Phase 3.3-25.6 Mid-Luteal Phase 4.4-28.0 Postmenopausal <0.3- 0.7 Females: 1st Trimester 11.2- 90.0 2nd Trimester 25.6- 89.4 3RD Trimester 48.4-422.5 Patients receiving DHEA-S supplements may show false elevation of progesterone for results near 1.0 ng/mL. Contact laboratory at [phone] if alternative testing is needed. Performed By: #### 2 839-9 #### JOSEPH ESQUIVEL ([id number]) [facility] ([facility]) [address] [place], [place] [id number] [facility] US PELVIS LIMITED FOLLIC LES-FOLLICLE STUDIES PERFORMEDon 06-07-2024 [facility] US PELVIS LIMITED FOLLICLES-FOLLICLE STUDIES PERFORMED Follicle scan performed with follicle measurements in report. and Trilaminar appearance to the endometrium is noted. Normal [facility] Estradiolon 06-06-2024 E2 [Mass/Vol] 558 pg/mL Normal [facility] Comment on above: Order Comment: REF V ALUES FOLLICULAR PHASE 20-144 MID CYCLE 64-357 LUTEAL PHASE 56-214 POSTMENOPAUSE < 32 PREPUBERTY < 20 FEMALE 10-18Y 8-110 MALE 10-18Y < 20 ADULT MALE < 40 Performed By: #### 2 243-4 #### JOSEPH ESQUIVEL ([id number]) [facility] ([facility]) [address] [place] [address] Follicle Diameter USon 06-06 Trilaminar appearance to the endometrium is noted. RIS SECTRA ONLY [facility] Work Phone: Radiology Study observation (narrative) [facility] Work Phone: Progesteroneon 06-06-2024 Progesterone [Mass/Vol] 0.8 ng/mL Normal [facility] Comment on above: Order Comment: REF V ALUES Male <0.2-0.8 Follicular Phase <0.2-1.5 Luteal Phase 7.4-15.4 Post Menopausal <0.2-0.2 1ST Trimester 12.0-84.0 2ND Trimester 10.2-58.8 3RD Trimester 46.5-160 Progesterone is performed using the Faith Cristopher Access Immunoassay. Progesterone testing is performed using a different test methodology at [facility] than other [facility]. Direct result comparison should only be made within the same method. Result Comment: Ref Values Male <0.3- 1.2 Follicular Phase <0.3- 1.4 Luteal Phase 3.3-25.6 Mid-Luteal Phase 4.4-28.0 Postmenopausal <0.3- 0.7 Females: 1st Trimester 11.2- 90.0 2nd Trimester 25.6- 89.4 3RD Trimester 48.4-422.5 Patients receiving DHEA-S supplements may show false elevation of progesterone for results near 1.0 ng/mL. Contact laboratory at [phone] if alternative testing is needed. Performed By: #### 2 839-9 #### JOSEPH ESQUIVEL ([id number]) [facility] ([facility]) [address] [place] [address] KELSY US ENDOMETRIAL LINING ECKon 06-06-2024 KELSY US ENDOMETRIAL LINING CHECK Trilaminar appearance to the endometrium is noted. [facility] No Panel Informationon 03-22 Juan Chavarria MD 03/22/2024 9:44 AM Egg Retrieval Date/Time: 03/22/2024 9:39 AM Performed by: Juan Chavarria MD Authorized by: Donya Abernathy APRN-[employer] Consent: Consent obtained: Verbal and written Consent [...] diagnosis: Female infertility Post op diagnosis: Same Radio Time Salesperson: Dr. Warren IV Fluids: 600 cc EBL: 5 cc UOP: Not recorded Specimen: Oocytes Complications: None Number of Oocytes right ovary: 16 Ovarian access (right): Easy Number of Oocytes left ovary: 9 Ovarian access (left): Easy Endometrial thickness: n/a Needle type: Single Additional notes: [facility] RIS [facility] Work Phone: Lutropinon 03-21-2024 Lutropin Qn 29.3 IU/L Normal [facility] Comment on above: Result Comment: LH R eference Values Follicular Phase 1.5-10.0 Mid-Cycle 13.0-72.0 Luteal Phase 0.5-13.0 Menopause 15.0-65.0 Pre-puberty 0- 3.0 Children 0- 6.0 Adult Male 1.0- 9.0 Luteinizing Hormone is performed using the LOFTY Access Immunoassay. LH testing is performed using a different test methodology at [facility] than other [facility]. Direct result comparison should only be made within the same method. Performed By: #### 4 7236-5 #### SHAI Pickard ([id number]) [facility] ([facility]) [address] [place] [id number] Progesteroneon 03-21-2024 Progesterone [Mass/Vol] 4.5 ng/mL Normal [facility] Comment on above: Order Comment: HIV A g/Ab screen is performed using the Siemens FoodBox HIV Ag/Ab Combo assay which detects the presence of HIV p24 antigen as well as antibodies to HIV-1 (Group M and O) and HIV-2. No laboratory evidence of HIV infection. If acute HIV infection is suspected, consider testing for HIV RNA by PCR (viral load). Performed By: #### 5 6888-1 #### SHAI Pickard ([id number]) [facility] ([facility]) [address] [place] [address] E2 [Mass/Vol]Ordered By: Shira Rich on 03-20-2024 REF VALUES FOLLICULAR PHASE 20-144 MID CYCLE 64-357 LUTEAL PHASE 56-214 POSTMENOPAUSE < 32 PREPUBERTY < 20 FEMALE 10-18Y 8-110 MALE 10-18Y < 20 ADULT MALE < 40 Estradiol measurement is performed using the Faith Cristopher Access Estradiol Immunoassay. Estradiol testing is performed using a different test methodology at [facility] than other [facility]. Direct result comparison should only be made within the same method. [facility] EstradiolOrdered By: Bela Rich on 03-20-2024 E2 [Mass/Vol] 4909 pg/mL [facility] Estradiolon 03-20-2024 E2 [Mass/Vol] 4909 pg/mL Normal [facility] Comment on above: Order Comment: [...] By: #### 5 6888-1 #### SHAI Pickard ([id number]) [facility] ([facility]) [address] [place] [address] Follicle Diameter USon 03-20 Follicle scan performed with follicle measurements in report. RIS SECTRA ONLY [facility] Work Phone: Radiology Study observation (narrative) [facility] Work Phone: Progesteroneon 03-20-2024 Progesterone [Mass/Vol] 1.3 ng/mL U [facility] Progesterone [Mass/Vol] 1.3 ng/mL Normal [facility] Comment on above: Order Comment: [...] By: #### 5 6888-1 #### SHAI Pickard ([id number]) [facility] ([facility]) [address] [place] [address] Progesterone [Mass/Vol]on REF VALUES Male <0.2-0.8 Follicular Phase <0.2-1.5 Luteal Phase 7.4-15.4 Post Menopausal <0.2-0.2 1ST Trimester 12.0-84.0 2ND Trimester 10.2-58.8 3RD Trimester 46.5-160 Progesterone is performed using the Faith Cristopher Access Immunoassay. Progesterone testing is performed using a different test methodology at [facility] than other [facility]. Direct result comparison should only be made within the same method. [facility] KELSY US PELVIS LIMITED FOLLIC LES-FOLLICLE STUDIES PERFORMEDon 03-20-2024 KELSY US PELVIS LIMITED FOLLICLES-FOLLICLE STUDIES PERFORMED Follicle scan performed with follicle measurements in report. Normal [facility] Estradiolon 03-19-2024 E2 [Mass/Vol] 3760 pg/mL Normal [facility] Comment on above: Order Comment: [...] By: #### 5 6888-1 #### SHAI Pickard ([id number]) [facility] ([facility]) [address] [place] [address] Follicle Diameter USon 03-19 Follicle scan performed with follicle measurements in report. RIS SECTRA ONLY [facility] Work Phone: Radiology Study observation (narrative) [facility] Work Phone: Progesteroneon 03-19-2024 Progesterone [Mass/Vol] 1.1 ng/mL Normal [facility] Comment on above: Order Comment: HIV A [...] By: #### 5 6888-1 #### SHAI Pickard ([id number]) [facility] ([facility]) [address] [place] [address] K[facility] US PELVIS LIMITED FOLLIC LES-FOLLICLE STUDIES PERFORMEDon 03-19-2024 KELSY US PELVIS LIMITED FOLLICLES-FOLLICLE STUDIES PERFORMED Follicle scan performed with follicle measurements in report. Normal [facility] E2 [Mass/Vol]on 03-17-2024 REF VALUES FOLLICULAR PHASE 20-144 MID CYCLE 64-357 LUTEAL PHASE 56-214 POSTMENOPAUSE < 32 PREPUBERTY < 20 FEMALE 10-18Y 8-110 MALE 10-18Y < 20 ADULT MALE < 40 Estradiol measurement is performed using the Faith NoRedInk Access Estradiol Immunoassay. Estradiol testing is performed using a different test methodology at [facility] than other [facility]. Direct result comparison should only be made within the same method. [facility] Estradiolon 03-17-2024 E2 [Mass/Vol] 1462 pg/mL [facility] E2 [Mass/Vol] 1462 pg/mL Normal [facility] Comment on above: Order Comment: [...] By: #### 5 6888-1 #### SHAI Pickard ([id number]) [facility] ([facility]) [address] [place] [address] Follicle Diameter USon 03-17 Follicle scan performed with follicle measurements in report. Trilaminar appearance to the endometrium is noted. Physiologic free fluid is noted in the cul de sac. Notably retroverted uterus. Two small complex ovarian cysts noted, one on the left and one on the right. RIS SECTRA ONLY Radiology Study observation (narrative) [facility] Work Phone: Follicle Diameter USOrdered By: Leigh Ann Tuttle on 03-17-2024 [facility] Work Phone: Progesteroneon 03-17-2024 Progesterone [Mass/Vol] 0.6 ng/mL Normal [facility] Comment on above: Order Comment: [...] By: #### 5 6888-1 #### SHAI Pickard ([id number]) [facility] ([facility]) [address] [place] [address] KELSY US PELVIS LIMITED FOLLIC LES-FOLLICLE STUDIES PERFORMEDon 03-17-2024 KELSY US PELVIS LIMITED FOLLICLES-FOLLICLE STUDIES PERFORMED Follicle scan performed with follicle measurements in report. Trilaminar appearance to the endometrium is noted. Physiologic free fluid is noted in the cul de sac. Notably retroverted uterus. Two small complex ovarian cysts noted, one on the left and one on the right. Normal [facility] E2 [Mass/Vol]on 03-15-2024 REF VALUES FOLLICULAR PHASE 20-144 MID CYCLE 64-357 LUTEAL PHASE 56-214 POSTMENOPAUSE < 32 PREPUBERTY < 20 FEMALE 10-18Y 8-110 MALE 10-18Y < 20 ADULT MALE < 40 Estradiol measurement is performed using the Faith Cristopher Access Estradiol Immunoassay. Estradiol testing is performed using a different test methodology at [facility] than other [facility]. Direct result comparison should only be made within the same method. [facility] Estradiolon 03-15-2024 E2 [Mass/Vol] 721 pg/mL [facility] E2 [Mass/Vol] 721 pg/mL Normal [facility] Comment on above: Order Comment: REF V ALUESFOLLICULAR PHASE 20-144MID CYCLE 64-357LUTEAL PHASE 56-214POSTMENOPAUSE < 32PREPUBERTY < 20FEMALE 10-18Y 8-110MALE 10-18Y < 20ADULT MALE < 40Estradiol measurement is performed using the Faith Cristopher Access Estradiol Immunoassay. Estradiol testing is performed using a different test methodology at [facility] than other [facility]. Direct resultcomparison should only be made within the same method. Performed By: #### 1 6128-1 #### SHAI Pickard ([id number]) [facility] ([facility]) [address] [place] [address] Follicle Diameter USon 03-15 Follicle scan performed with follicle measurements in report., Trilaminar appearance to the endometrium is noted., and Free fluid is noted in the cul de sac. RIS SECTRA ONLY [facility] Work Phone: Radiology Study observation (narrative) [facility] Work Phone: KELSY US PELVIS LIMITED FOLLIC LES-FOLLICLE STUDIES PERFORMEDon 03-15-2024 KELSY US PELVIS LIMITED FOLLICLES-FOLLICLE STUDIES PERFORMED Follicle scan performed with follicle measurements in report., Trilaminar appearance to the endometrium is noted., and Free fluid is noted in the cul de sac. Normal [facility] E2 [Mass/Vol]on 03-09-2024 REF VALUES FOLLICULAR PHASE 20-144 MID CYCLE 64-357 LUTEAL PHASE 56-214 POSTMENOPAUSE < 32 PREPUBERTY < 20 FEMALE 10-18Y 8-110 MALE 10-18Y < 20 ADULT MALE < 40 Estradiol measurement is performed using the Faith Cristopher Access Estradiol Immunoassay. Estradiol testing is performed using a different test methodology at [facility] than other [facility]. Direct result comparison should only be made within the same method. [facility] Estradiolon 03-09-2024 E2 [Mass/Vol] pg/mL pg/mL [facility] E2 [Mass/Vol] pg/mL Normal [facility] Comment on above: Order Comment: REF V ALUESFOLLICULAR PHASE 20-144MID CYCLE 64-357LUTEAL PHASE 56-214POSTMENOPAUSE < 32PREPUBERTY < 20FEMALE 10-18Y 8-110MALE 10-18Y < 20ADULT MALE < 40Estradiol measurement is performed using the Faith Cristopher Access Estradiol Immunoassay. Estradiol testing is performed using a different test methodology at [facility] than other [facility]. Direct resultcomparison should only be made within the same method. Performed By: #### 1 6128-1 #### SHAI Pickard ([id number]) [facility] ([facility]) [address] [place] [address] Follicle Diameter USon 03-09 Follicle scan performed with follicle measurements in report., Trilaminar appearance to the endometrium is noted., and Free fluid is noted in the cul de sac. RIS SECTRA ONLY Radiology Study observation (narrative) [facility] Work Phone: Follicle Diameter USOrdered By: Alicia Morgan on 03-09-2024 [facility] Work Phone: Hematocrit Auto (Bld) [Volum e fraction]on 03-09-2024 Hematocrit (Bld) [Volume fraction] 43.2 % 36.0 - 46.0 % [facility] Interpretation and review of laboratory results Normal [facility] Hematocrit (Bld) [Volume fraction] 43.2 % Normal 36.0-46.0 [facility] Comment on above: Performed By: #### 1 6128-1 #### SHAI Pickard ([id number]) [facility] ([facility]) [address] [place], [place] [id number] KELSY US PELVIS LIMITED FOLLIC LES-FOLLICLE STUDIES PERFORMEDon 03-09-2024 KELSY US PELVIS LIMITED FOLLICLES-FOLLICLE STUDIES PERFORMED Follicle scan performed with follicle measurements in report., Trilaminar appearance to the endometrium is noted., and Free fluid is noted in the cul de sac. Normal [facility] No Panel Informationon 02-22 Juan [...] diagnosis: Female infertility Post op diagnosis: Same Radio Time Salesperson: none IV Fluids: 500 cc EBL: 5 cc UOP: Not recorded Specimen: Oocytes Complications: None Number of Oocytes right ovary: 17 Ovarian acc ss (right): Easy Number of Oocytes left ovary: 13 Ovarian access (left): Easy Endometrial thickness: n/a Needle type: Single Additional notes: KELSY LAB RIS [facility] Work Phone: Lutropinon 02-22-2024 Lutropin Qn 35.3 IU/L Normal [facility] Comment on above: Result Comment: LH R eference Values Follicular Phase 1.5-10.0 Mid-Cycle 13.0-72.0 Luteal Phase 0.5-13.0 Menopause 15.0-65.0 Pre-puberty 0- 3.0 Children 0- 6.0 Adult Male 1.0- 9.0 Luteinizing Hormone is performed using the Faith NoRedInk Access Immunoassay. LH testing is performed using a different test methodology at [facility] than other [facility]. Direct result comparison should only be made within the same method. Performed By: #### 1 6128-1 #### SHAI Pickard ([id number]) [facility] ([facility]) [address] [place] [address] Progesteroneon 02-22-2024 Progesterone [Mass/Vol] 5.0 ng/mL Normal U [facility] Comment on above: Order Comment: REF V ALUESMale <0.2-0.8Follicular Phase <0.2-1.5Luteal Phase 7.4-15.4Post Menopausal <0.2-0.21ST Trimester 12.0-84.02ND Trimester 10.2-58.83RD Trimester 46.5-160Progesterone is performed using the Faith NoRedInk Access Immunoassay.Progesterone testing is performed using a different test methodology at [facility] than other [facility]. Direct result comparison should only be made within the same method. Performed By: #### 1 6128-1 #### SHAI Pickard ([id number]) [facility] ([facility]) [id number] [place] [address] E2 [Mass/Vol]Ordered By: Christi Infante on 02-21-2024 REF VALUES FOLLICULAR PHASE 20-144 MID CYCLE 64-357 LUTEAL PHASE 56-214 POSTMENOPAUSE < 32 PREPUBERTY < 20 FEMALE 10-18Y 8-110 MALE 10-18Y < 20 ADULT MALE < 40 Estradiol measurement is performed using the Faith Cristopher Access Estradiol Immunoassay. Estradiol testing is performed using a different test methodology at [facility] than other [facility]. Direct result comparison should only be made within the same method. [facility] EstradiolOrdered By: Janet Ritchie on 02-21-2024 E2 [Mass/Vol] 5153 pg/mL [facility] Estradiolon 02-21-2024 E2 [Mass/Vol] 5153 pg/mL Normal [facility] Comment on above: Order Comment: REF V ALUESFOLLICULAR PHASE 20-144MID CYCLE 64-357LUTEAL PHASE 56-214POSTMENOPAUSE < 32PREPUBERTY < 20FEMALE 10-18Y 8-110MALE 10-18Y < 20ADULT MALE < 40Estradiol measurement is performed using the Faith Ripley Access Estradiol Immunoassay. Estradiol testing is performed using a different test methodology at [facility] than other [facility]. Direct resultcomparison should only be made within the same method. Performed By: #### 1 6128-1 #### SHAI Pickard ([id number]) [facility] ([facility]) [address] [place] [address] Follicle Diameter USon 02-20 Follicle scan performed with follicle measurements in report. RIS SECTRA ONLY Radiology Study observation (narrative) [facility] Work Phone: Follicle Diameter USOrdered By: Juan Chavarria on 02-21-2024 [facility] Work Phone: Luteinizing Hormone (LH)on Lutropin Qn 0.9 m[IU]/mL IU/L [facility] Comment on above: LH Reference Values Follicular Phase 1.5-10.0 Mid-Cycle 13.0-72.0 Luteal Phase 0.5-13.0 Menopause 15.0-65.0 Pre-puberty 0- 3.0 Children 0- 6.0 Adult Male 1.0- 9.0 Luteinizing Hormone is performed using the Faith NoRedInk Access Immunoassay. LH testing is performed using a different test methodology at [facility] than other [facility]. Direct result comparison should only be made within the same method. Lutropinon 02-21-2024 Lutropin Qn 0.9 IU/L Normal [facility] Comment on above: Result Comment: LH R eference Values Follicular Phase 1.5-10.0 Mid-Cycle 13.0-72.0 Luteal Phase 0.5-13.0 Menopause 15.0-65.0 Pre-puberty 0- 3.0 Children 0- 6.0 Adult Male 1.0- 9.0 Luteinizing Hormone is performed using the Faith NoRedInk Access Immunoassay. LH testing is performed using a different test methodology at [facility] than other [facility]. Direct result comparison should only be made within the same method. Performed By: #### 1 6128-1 #### SHAI Pickard ([id number]) [facility] ([facility]) [address] [place] [address] Lutropin Qnon 02-21-2024 [facility] Progesteroneon 02-21-2024 Progesterone [Mass/Vol] 1.3 ng/mL U [facility] Progesterone [Mass/Vol] 1.3 ng/mL Normal [facility] Comment on above: Order Comment: REF V ALUESMale <0.2-0.8Follicular Phase <0.2-1.5Luteal Phase 7.4-15.4Post Menopausal <0.2-0.21ST Trimester 12.0-84.02ND Trimester 10.2-58.83RD Trimester 46.5-160Progesterone is performed using the Faith NoRedInk Access Immunoassay.Progesterone testing is performed using a different test methodology at [facility] than [facility]. Direct result comparison should only be made within the same method. Performed By: #### 5 196-1 #### SHAI Pickard ([id number]) [facility] ([facility]) [address] [place] [address] Progesterone [Mass/Vol]on REF VALUES Male <0.2-0.8 Follicular Phase <0.2-1.5 Luteal Phase 7.4-15.4 Post Menopausal <0.2-0.2 1ST Trimester 12.0-84.0 2ND Trimester 10.2-58.8 3RD Trimester 46.5-160 Progesterone is performed using the Faith Ripley Access Immunoassay. Progesterone testing is performed using a different test methodology at [facility] than other [facility]. Direct result comparison should only be made within the same method. [facility] KELSY US PELVIS LIMITED FOLLIC LES-FOLLICLE STUDIES PERFORMEDon 02-21-2024 KELSY US PELVIS LIMITED FOLLICLES-FOLLICLE STUDIES PERFORMED Follicle scan performed with follicle measurements in report. Normal [facility] Estradiolon 02-20-2024 E2 [Mass/Vol] 3718 pg/mL Normal [facility] Comment on above: Order Comment: REF V ALUESFOLLICULAR PHASE 20-144MID CYCLE 64-357LUTEAL PHASE 56-214POSTMENOPAUSE < 32PREPUBERTY < 20FEMALE 10-18Y 8-110MALE 10-18Y < 20ADULT MALE < 40Estradiol measurement is performed using the Faith NoRedInk Access Estradiol Immunoassay. Estradiol testing is performed using a different test methodology at [facility] than other [facility]. Direct resultcomparison should only be made within the same method. Performed By: #### 5 196-1 #### SHAI Pickard ([id number]) [facility] ([facility]) [address] [place] [address] Progesteroneon 02-20-2024 Progesterone [Mass/Vol] 1.4 ng/mL Normal [facility] Comment on above: Order Comment: REF V ALUESMale <0.2-0.8Follicular Phase <0.2-1.5Luteal Phase 7.4-15.4Post Menopausal <0.2-0.21ST Trimester 12.0-84.02ND Trimester 10.2-58.83RD Trimester 46.5-160Progesterone is performed using the Faith Ripley Access Immunoassay.Progesterone testing is performed using a different test methodology at [facility] than other [facility]. Direct result comparison should only be made within the same method. Performed By: #### 5 196-1 #### SHAI Pickard ([id number]) [facility] ([facility]) [address] [place] [address] KELSY US PELVIS LIMITED FOLLIC LES-FOLLICLE STUDIES PERFORMEDon 02-20-2024 KELSY US PELVIS LIMITED FOLLICLES-FOLLICLE STUDIES PERFORMED Follicle scan performed with follicle measurements in report. Normal [facility] E2 [Mass/Vol]on 02-18-2024 REF VALUES FOLLICULAR PHASE 20-144 MID CYCLE 64-357 LUTEAL PHASE 56-214 POSTMENOPAUSE < 32 PREPUBERTY < 20 FEMALE 10-18Y 8-110 MALE 10-18Y < 20 ADULT MALE < 40 Estradiol measurement is performed using the Faith Cristopher Access Estradiol Immunoassay. Estradiol testing is performed using a different test methodology at [facility] than other [facility]. Direct result comparison should only be made within the same method. [facility] Estradiolon 02-18-2024 E2 [Mass/Vol] 1472 pg/mL [facility] E2 [Mass/Vol] 1472 pg/mL Normal [facility] Comment on above: Order Comment: REF V ALUESFOLLICULAR PHASE 20-144MID CYCLE 64-357LUTEAL PHASE 56-214POSTMENOPAUSE < 32PREPUBERTY < 20FEMALE 10-18Y 8-110MALE 10-18Y < 20ADULT MALE < 40Estradiol measurement is performed using the Faith NoRedInk Access Estradiol Immunoassay. Estradiol testing is performed using a different test methodology at [facility] than other [facility]. Direct resultcomparison should only be made within the same method. Performed By: #### 5 196-1 #### SHAI Pickard ([id number]) [facility] ([facility]) [address] [place] [address] Follicle Diameter USon 02-17 Follicle scan performed with follicle measurements in report. Trilaminar appearance to the endometrium is noted. Free fluid is noted in the right paraovarian space. Notably retroverted uterus. RIS SECTRA ONLY Radiology Study observation (narrative) [facility] Work Phone: Follicle Diameter USOrdered By: Leigh Ann Tuttle on 02-18-2024 [facility] Work Phone: KELSY US PELVIS LIMITED FOLLIC LES-FOLLICLE STUDIES PERFORMEDon 02-18-2024 KELSY US PELVIS LIMITED FOLLICLES-FOLLICLE STUDIES PERFORMED Follicle scan performed with follicle measurements in report. Trilaminar appearance to the endometrium is noted. Free fluid is noted in the right paraovarian space. Notably retroverted uterus. Normal [facility] E2 [Mass/Vol]on 02-16-2024 REF VALUES FOLLICULAR PHASE 20-144 MID CYCLE 64-357 LUTEAL PHASE 56-214 POSTMENOPAUSE < 32 PREPUBERTY < 20 FEMALE 10-18Y 8-110 MALE 10-18Y < 20 ADULT MALE < 40 Estradiol measurement is performed using the Faith Cristopher Access Estradiol Immunoassay. Estradiol testing is performed using a different test methodology at [facility] than other [facility]. Direct result comparison should only be made within the same method. [facility] Estradiolon 02-16-2024 E2 [Mass/Vol] 639 pg/mL [facility] E2 [Mass/Vol] 639 pg/mL Normal [facility] Comment on above: Order Comment: REF V ALUESFOLLICULAR PHASE 20-144MID CYCLE 64-357LUTEAL PHASE 56-214POSTMENOPAUSE < 32PREPUBERTY < 20FEMALE 10-18Y 8-110MALE 10-18Y < 20ADULT MALE < 40Estradiol measurement is performed using the Faith Ripley Access Estradiol Immunoassay. Estradiol testing is performed using a different test methodology at [facility] than other [facility]. Direct resultcomparison should only be made within the same method. Performed By: #### 5 196-1 #### SHAI Pickard ([id number]) [facility] ([facility]) [address] [place] [address] KELSY US PELVIS LIMITED FOLLIC LES-FOLLICLE STUDIES PERFORMEDon 02-16-2024 KELSY US PELVIS LIMITED FOLLICLES-FOLLICLE STUDIES PERFORMED Follicle scan performed with follicle measurements in report. and Trilaminar appearance to the endometrium is noted. Normal [facility] E2 [Mass/Vol]on 02-09-2024 REF VALUES FOLLICULAR PHASE 20-144 MID CYCLE 64-357 LUTEAL PHASE 56-214 POSTMENOPAUSE < 32 PREPUBERTY < 20 FEMALE 10-18Y 8-110 MALE 10-18Y < 20 ADULT MALE < 40 Estradiol measurement is performed using the Faith Cristopher Access Estradiol Immunoassay. Estradiol testing is performed using a different test methodology at [facility] than other [facility]. Direct result comparison should only be made within the same method. [facility] Estradiolon 02-09-2024 E2 [Mass/Vol] pg/mL pg/mL [facility] E2 [Mass/Vol] pg/mL Normal [facility] Comment on above: Order Comment: REF V ALUESFOLLICULAR PHASE 20-144MID CYCLE 64-357LUTEAL PHASE 56-214POSTMENOPAUSE < 32PREPUBERTY < 20FEMALE 10-18Y 8-110MALE 10-18Y < 20ADULT MALE < 40Estradiol measurement is performed using the Faith Cristopher Access Estradiol Immunoassay. Estradiol testing is performed using a different test methodology at [facility] than other [facility]. Direct resultcomparison should only be made within the same method. Performed By: #### 5 196-1 #### SHAI Pickard ([id number]) [facility] ([facility]) [address] [place] [address] Follicle Diameter USon 02-08 Follicle scan performed with follicle measurements in report. MFM Radiology Study observation (narrative) [facility] Work Phone: Follicle Diameter USOrdered By: Juan Chavarria on 02-09-2024 [facility] Work Phone: Hematocrit Auto (Bld) [Volum e fraction]on 02-09-2024 Hematocrit (Bld) [Volume fraction] 42.9 % 36.0 - 46.0 % [facility] Interpretation and review of laboratory results Normal [facility] Hematocrit (Bld) [Volume fraction] 42.9 % Normal 36.0-46.0 [facility] Comment on above: Performed By: #### 4 544-3 #### JOSEPH ESQUIVEL ([id number]) [facility] ([facility]) [address] [place] [address] KELSY US PELVIS LIMITED FOLLIC LES-FOLLICLE STUDIES PERFORMEDon 02-09-2024 KELSY US PELVIS LIMITED FOLLICLES-FOLLICLE STUDIES PERFORMED Follicle scan performed with follicle measurements in report. Normal [facility] HCG ( test) Ql (U)o n 01-28-2024 Interpretation and review of laboratory results Normal [facility] Work Phone: Preg Test, Ur Negative Negative [facility] Work Phone: [facility] Work Phone: No Panel Informationon 01-27 [...] well, no immediate complications KELSY LAB RIS [facility] Work Phone: Surgical pathology studyon 0 01-28-2024 Surgical pathology study Pathology report.total SEE COMMENT Surgical Pathology Case: [id number] Authorizing Provider: Leigh Ann Tuttle MD Collected: [...] is entirely submitted in 1 cassette. JEK/SBS [facility] IGP,APTIMA HPV,AGE GDLNon AGE GDLN ACOG TESTING Note . [facility] Comment on above: TESTS RESULT FLAG UN ITS REF RANGE LAB Clinician Provided Cytology Information Source.............Cervix;Endocervix No. of containers..01 ThinPrep Vial Age Algo ACOG Telma... FLAG LEGEND: L-Low Normal,H-High Normal,LL-Alert Low,HH-Alert High <-Panic Low,>-Panic High,A-Abnormal,AA-Critical Abnormal Performed at: 01 =G [address] [address] Nidhi Fay MD, IGP, RFX APTIMA HPV ASCU Note . [facility] Comment on above: TESTS RESULT FLAG UN ITS REF RANGE LAB DIAGNOSIS: 02 NEGATIVE FOR INTRAEPITHELIAL LESION OR MALIGNANCY. Specimen adequacy: 02 Satisfactory for evaluation. Endocervical and/or squamous metaplastic cells (endocervical component) are present. Performed by: Gaby Masters Utility Bill Collection Clerk ([facility]) . 02 Note: Note 02 The Pap [...] Low,>-Panic High,A-Abnormal,AA-Critical Abnormal Performed at: 02 WB [facility] [address] [address] Nidhi Fay MD, Performed at: =G - [facility] [address] [id number] Rail Splitter: Nidhi Fay MD, Phone: [phone] Performed at: WB - [facility] [address] [id number] Rail Splitter: Nidhi Fay MD, Phone: [phone] BRUSH-SPATULA CERVIX ENDOCERVIX [facility] Blood type and Indirect anti body screen panel (Bld)on 2023 ABO group Nom (Bld) O [facility] Blood group antibody screen Ql Negative [facility] D Ag Ql (Bld) Positive [facility] ABO group Nom (Bld) O Normal [facility] Comment on above: Performed By: #### 3 4532-2 #### JOSEPH ESQUIVEL ([id number]) [employer] (ZYB) [address] [place] [address] [place] Blood group antibody screen Ql Negative [facility] Comment on above: Performed By: #### 3 4532-2 #### JOSEPH ESQUIVEL ([id number]) [employer] (ZYB) [address] [place] [address] [place] D Ag Ql (Bld) Positive [facility] Comment on above: Performed By: #### 3 4532-2 #### JOSEPH ESQUIVEL ([id number]) [employer] (ZYB) [address] [place] [address] [place] C. trachomatis and N. gonorr hoeae DNA EDELMIRA+probe Nom (Unsp spec)on 2023 C. trachomatis rRNA EDELMIRA+probe Ql (Unsp spec) Negative Normal Negative [facility] Comment on above: Order Comment: The [...] By: #### 3 6903-3 #### SHAI Pickard ([id number]) [facility] ([facility]) [address] [place] [address] N. gonorrhoeae DNA Probe+sig amp Ql (Unsp spec) Negative Normal Negative [facility] Comment on above: Order Comment: The A [...] By: #### 3 6903-3 #### SHAI Pickard ([id number]) [facility] ([facility]) [address] [place] [address] HIV 1+2 Ab+HIV1 p24 Agon HIV 1+2 Ab+HIV1 p24 Ag IA Ql Non-Reactive Normal Nonreactive [facility] Comment on above: Order Comment: HIV A g/Ab screen is performed using the Siemens FoodBox HIV Ag/Ab Combo assay which detects the presence of HIV p24 antigen as well as antibodies to HIV-1 (Group M and O) and HIV-2. No laboratory evidence of HIV infection. If acute HIV infection is suspected, consider testing for HIV RNA by PCR (viral load). Performed By: #### 5 6888-1 #### SHAI Pickard ([id number]) [facility] ([facility]) [address] [place], [place] [address] Hepatitis B virus surface Ag on 2023 [...] By: #### 5 196-1 #### SHAI Pickard ([id number]) [facility] ([facility]) [address] [place], [place] [address] Hepatitis C virus Abon 12-10 HCV Ab Ql (S) Non-Reactive Normal Nonreactive [facility] Comment on above: Result Comment: Resu lts from patients taking biotin supplements or receiving high-dose biotin therapy should be interpreted with caution due to possible interference with this test. Providers may contact their local laboratory for further information. Performed By: #### 1 6128-1 #### SHAI Pickard ([id number]) [facility] ([facility]) [address] [place], [place] [address] Rubella virus IgG IA Qnon Rubella virus IgG IA Ql Positive Normal Negative [facility] Comment on above: Order Comment: NEGAT DEZ: [...] By: #### 5 334-8 #### SHAI Pickard ([id number]) [facility] ([facility]) [address] [place] [address] Rubella virus IgG Qn (S) 1.2 IA Normal <=0.7 IA [facility] Comment on above: Order Comment: [...] By: #### 5 334-8 #### SHAI Pickard ([id number]) [facility] ([facility]) [address] [place] [address] Treponema pallidum Ab.IgG+Ig Mon 2023 T. pallidum IgG+IgM IA Ql (S) Non-Reactive Normal Nonreactive [facility] Comment on above: Result Comment: No s ignificant level of Treponema pallidum antibody detected. Repeat testing in 2 to 4 weeks may be considered if early infection or incubating syphilis infection is suspected. Performed By: #### 4 7236-5 #### SHAI Pickard ([id number]) [facility] ([facility]) [address] [place] [address] VZV IgG IA Ql (S)on 12-11-19 24 VARICELLA ZOSTER IGG INDEX 5.6 IA High <=0.8 [facility] Comment on above: Order Comment: [...] By: #### 1 5410-4 #### SHAI Pickard ([id number]) [facility] ([facility]) [address] [place] [address] Varicella zoster virus Ab.Ig Biju 2023 VZV IgG IA Ql (S) Positive Abnormal Negative [facility] Comment on above: Order Comment: [...] By: #### 1 5410-4 #### SHAI Pickard ([id number]) [facility] ([facility]) [address] [place] [address] Ambulatory Visit Summaryon 0 10-02-2023 Ambulatory Visit [...] knee anterior cruciate ligament allograft reconstruction with [id number]-vzsr, debridment medial meniscus tear, patellofemoral chondroplasty-Grade I-II (07/28/2013), Tonsillectomy, tubes in the ears. Discharge Vitals Temperature (Oral) 36.8 ?C Heart Rate (Peripheral) 65 Blood Pressure 118/66 Height 162 cm Height 64 in Weight 76.7 kg Weight 168.74 lb BMI 29.23 What to do next Scheduled Follow-Up Appointments Thursday 7:20 AM EDT With: Princess Dumont Where: [facility] Medicine Office/Clini c Noteon 10-02-2023 Family Medicine [...] lot of blood work ordered by her COOPERATIVE EDUCATION COORDINATOR and we are going to go over [...] mg once day. She has been taking ufas-snn-dsieysw magnesium at night since initiating Topamax. Weight management. The patient expresses a desire to lose weight and re-initiate her Adipex. She has previously tried Aryan pnhl-fvj-vooyvwg but found it ineffective. She does not [...] arms or hands, as well as any punch press setter strength weakness. She is agreeable trying vitamin [...] Assessment/Plan 1. Frequent headaches (R51.9: Headache, unspecified) Topmichelex is working well. She is taking 50 [...] me in (more content not included)... Normal [facility] Comment on above: Result Comment: Elec tronically Signed By: Princess Dumont\.br\Date and Time Signed: 10/02/23 16:44 EDT\.br\Electronically Co-Signed By: Raj hCu\.br\Date and Time Co-Signed: 10/02/23 15:48 EDT Lab Reportson 10-02-2023 Lab Reports [id number] 02#[id number] Normal [facility] Patient Educationon 10-02-19 Patient Education BMI for [...] numbers. This can be done either in [place]ian ([place] or metric measurements. Note that charts and online BMI calculators are available to help you find your BMI quickly and easily without having to do these calculations yourself. To calculate your BMI in [place]ian ([place] measurements: 1. Measure your weight in [...] for Disease Control and Prevention: www.cdc.gov ? [place] Heart Association: www.heart.org ? National Heart, Lung, and Blood [place]: www.nhlbi.nih.gov Summary ? Body mass index (BMI) is a number that is calculated from a person's weight and height. ? BMI may help estimate how much of a person's weight is composed of fat. BMI can help identify those who may be at higher risk for certain medical problems. ? BMI can be measured using Lithuanian measurements or metric measurements. ? BMI charts are used to identify whether you are underweight, normal weight, overweight, or obese. This information is not intended to replace advice given to you by your health care provider. Make sure you discuss any questions you have with your health care provider. Document Revised: 01/11/2020 Document Reviewed: 11/18/2019 [employer] Patient Education ? 2022 [employer]. Dermatology Eczema Eczema refers to a group [...] symptoms? S (more content not included)... Normal [facility] Transfer Inon 09-02-2023 Transfer In [id number] 2#[id number] Normal [facility] Family Medicine Office/Clini c Noteon 08-29-2023 Family [...] and encouraged her to go see her COOPERATIVE EDUCATION COORDINATOR. The patient was overweight with an elevated BMI. Her laboratories I ordered were not performed, and she did not do the x-ray that I ordered either. She presents for headaches again. Cervicalgia and persistent headaches. The patient underwent cervical x-ray in 02/20/2023 in [place], the day after her last visit on [...] in 06/2023 or 07/2023 and done at [place]. She is uncertain if cholesterol levels were [...] appearing. EN (more content not included)... Normal [facility] Comment on above: Result Comment: Elec tronically [...] numbers. This can be done either in [place]ian ([place] or metric measurements. Note that charts and online BMI calculators are available to help you find your BMI quickly and easily without having to do these calculations yourself. To calculate your BMI in [place]ian ([place] measurements: 1. Measure your weight in [...] for Disease Control and Prevention: www.cdc.gov ? [place] Heart Association: www.heart.org ? National Heart, Lung, and Blood [place]: www.nhlbi.nih.gov Summary ? Body mass index (BMI) is a number that is calculated from a person's weight and height. ? BMI may help estimate how much of a person's weight is composed of fat. BMI can help identify those who may be at higher risk for certain medical problems. ? BMI can be measured using Lithuanian measurements or metric measurements. ? BMI charts are used to identify whether you are underweight, normal weight, overweight, or obese. This information is not intended to replace advice given to you by your health care provider. Make sure you discuss any questions you have with your health care provider. Document Revised: 01/11/2020 Document Reviewed: 11/18/2019 [employer] Patient Education ? 2022 [employer]. Endocrinology Carbohydrate Counting for Diabetes Mellitus, Adult [...] contain carbohydra (more content not included)... Normal [facility] DHEA SERUMon 07-31-2022 Dehydroepiandrosterone (DHEA) 429 ng/dL Normal 31-701 [facility] Comment on above: Performed By: #### D [facility]. #### [facility] [address] [place] [address] Dr. Meghna Alas ANTI-MULLERIAN HORMONEon Anti-Mullerian Hormone (AMH) 2.01 ng/mL Normal [facility] Comment on above: Result Comment: For assays employing antibodies, the possibility exists for interference by heterophile antibodies in the samples.1 1.Ramon Calderon Interferences in Immunoassays - still a threat. Clin. Chem. 2000; 46: 1504-9113. This test was developed and its performance characteristics determined by [employer]. It has not been cleared or approved by the Food and Drug Administration. Reference Range: Females 20 - 25y: 1.23 - 11.51 Median 4.70 AMH concentrations of >= 1.06 ng/mL is correlated with a better response to ovarian stimulation, produced more retrievable oocytes and higher odds of live according to Lindseyer et al. Fertility and Sterility. 2010: 94:6433-2685. The current AMH test method correlates with [...] tumor. Performed By: #### A JOSE #### [facility] [address] [address] [address] Meghna Alas PAP ACOG PANEL 2: 21 to 29on 07-29-2022 . . Normal [facility] Comment on above: Performed By: #### [id number] ####[facility] [id number] [address]Dr. Meghna Alas Age Gdln ACOG Testing 23- [facility] Comment on above: Performed By: #### [id number] ####[facility] [id number] [address]Dr. Meghna Alas DIAGNOSIS: Comment [facility] Comment on above: Result Comment: NEGA TIVE FOR INTRAEPITHELIAL LESION OR MALIGNANCY. Performed By: #### [id number] ####[facility] [id number] [address]Dr. Meghna Alas Methodology: Comment [facility] Comment on above: Result Comment: This liquid based ThinPrep(R) pap test was screened with the use of an image guided system. Performed By: #### [id number] ####[facility] [id number] [address]Dr. Meghna Alas Note: Comment [facility] Comment on above: Result Comment: The Pap smear is a screening test designed to aid in the detection of premalignant and malignant conditions of the uterine cervix. It is not a diagnostic procedure and should not be used as the sole means of detecting cervical cancer. Both false-positive and false-negative reports do occur. . Performed By: #### [id number] ####[facility] [id number] [address]Dr. Meghna Alas Performed by: Comment Normal [facility] Comment on above: Result Comment: Antonella Villarreal, Supervisory Utility Bill Collection Clerk (ASCP) Performed By: #### [id number] ####[facility] [id number] [place], [place] [address]Dr. Meghna Alas Reflex Criteria: Comment Normal [facility] Comment on above: Result Comment: The HPV DNA reflex criteria were not met with this specimen result therefore, no HPV testing was performed. . Performed By: #### [id number] ####[facility] [id number] [place], [place] [address]TwBetito Alas Specimen adequacy: Comment Normal [facility] Comment on above: Result Comment: Sati sfactory for evaluation. Endocervical and/or squamous metaplastic cells (endocervical component) are present. Performed By: #### 4 [id number] ####[facility] [id number] [id number]. Meghna Alas DHEA-SULFATEon 07-27-2022 DHEA-Sulfate 195.0 ug/dL Normal 110.0-431.7 [facility] Comment on above: Performed By: #### D RADHA #### [facility] [address] [place] [address] Dr. Meghna Alas FSHon 07-27-2022 FSH 11.4 mIU/mL Normal [facility] Comment on above: Result Comment: Adul t Female: Follicular phase 3.5 - 12.5 Ovulation phase 4.7 - 21.5 Luteal phase 1.7 - 7.7 Postmenopausal 25.8 - 134.8 Performed By: #### L BCFSH #### [facility] [address] [address] [address] Meghna Alas LUTEINIZING HORMONE (LH)on 0 07-27-2022 LH 61.8 mIU/mL Normal [facility] Comment on above: Result Comment: Adul t Female: Follicular phase 2.4 - 12.6 Ovulation phase 14.0 - 95.6 Luteal phase 1.0 - 11.4 Postmenopausal 7.7 - 58.5 Performed By: #### L BCLH #### [facility] [address] [place] [address] Dr. Meghna Alas US PELVIS AND TRANSVAGon [...] RACQUEL UNLU Date: 2022-07-27 08:10 Normal [facility] CBC AUTO DIFFon 07-26-2022 BASO # 0.1 103/ul Normal 0.0-0.1 [facility] Comment on above: Performed By: #### C BC #### [facility] [address] [place] [address] Dr. Meghna Alas Basophils/100 WBC (Bld) 0.8 % Normal 0.2-2.0 [facility] Comment on above: Performed By: #### C BC #### [facility] [address] [address] [address] Meghna Alas EO # 0.2 103/ul Normal 0.0-0.7 [facility] Comment on above: Performed By: #### C BC #### [facility] [address] [place] [address] Dr. Meghna Alas Eosinophils/100 WBC (Bld) 3.7 % Normal 0.9-7.0 [facility] Comment on above: Performed By: #### C BC #### [facility] [address] [address] [address] Meghna Alas Erythrocyte distribution width (RBC) [Ratio] 11.7 % Normal 11.0-15.0 [facility] Comment on above: Performed By: #### C BC #### [facility] [address] [place] [address] Dr. Meghna Alas Hematocrit (Bld) [Volume fraction] 43.6 % Normal 36.0-48.0 [facility] Comment on above: Performed By: #### C BC #### [facility] [address] [place] [address] Dr. Meghna Alas Hemoglobin (Bld) [Mass/Vol] 14.9 g/dL Normal 12.0-16.0 [facility] Comment on above: Performed By: #### C BC #### [facility] [address] [place] [address] Dr. Meghna Alas IG # 0.02 10e3/ul Normal 0.00-0.03 [facility] Comment on above: Performed By: #### C BC #### [facility] [address] [place] [address] Dr. Meghna Alas IG % 0.3 % Normal 0.0-0.5 [facility] Comment on above: Performed By: #### C BC #### [facility] [address] [place] [address] Dr. Meghna Alas LYMPH # 1.7 103/ul Normal 1.2-3.8 [facility] Comment on above: Performed By: #### C BC #### [facility] [address] [place] [address] Dr. Meghna Alas Lymphocytes/100 WBC (Bld) 27.7 % Normal 20.5-60.0 [facility] Comment on above: Performed By: #### C BC #### [facility] [address] [place] [address] Dr. Meghna Alas MANUAL DIFF REQ NO Normal [facility] Comment on above: Performed By: #### C BC #### [facility] [address] [place] [address] Dr. Meghna lAas MCH (RBC) [Entitic mass] 30.7 pg Normal 26.7-34.0 [facility] Comment on above: Performed By: #### C BC #### [facility] [address] [place] [address] Dr. Meghna Alas MCHC (RBC) [Mass/Vol] 34.2 g/dL Normal 29.9-35.2 [facility] Comment on above: Performed By: #### C BC #### [facility] [address] [place] [address] Dr. Meghna Alas MCV (RBC) [Entitic vol] 89.7 fL Normal 81.0-99.0 [facility] Comment on above: Performed By: #### C BC #### [facility] [address] [place] [address] Dr. Meghna Alas MONO # 0.4 103/ul Normal 0.3-0.8 [facility] Comment on above: Performed By: #### C BC #### [facility] [address] [place] [address] Dr. Meghna Alas Monocytes/100 WBC (Bld) 7.1 % Normal 1.7-12.0 [facility] Comment on above: Performed By: #### C BC #### [facility] [address] [place] [address] Dr. Meghna Alas NEUT # 3.7 103/ul Normal 1.4-6.5 [facility] Comment on above: Performed By: #### C BC #### [facility] [address] [place] [address] Dr. Meghna Alas Neutrophils/100 WBC (Bld) 60.4 % Normal 43.0-75.0 [facility] Comment on above: Performed By: #### C BC #### [facility] [address] [place] [address] Dr. Meghna Alas Platelet mean volume (Bld) [Entitic vol] 11.3 fL Normal 9.5-13.5 [facility] Comment on above: Performed By: #### C BC #### [facility] [address] [place] [address] Dr. Meghna Alas PLT 154 103/ul Normal 150-450 [facility] Comment on above: Performed By: #### C BC #### [facility] [address] [place] [address] Dr. Meghna Alas RBC 4.86 106/ul Normal 4.20-5.40 [facility] Comment on above: Performed By: #### C BC #### [facility] [address] [place] [address] Dr. Meghna Alas WBC 6.2 103/ul Normal 4.0-11.0 [facility] Comment on above: Performed By: #### C BC #### [facility] [address] [place] [address] Dr. Meghna Alas FREE T4on 07-26-2022 Free T4 [Mass/Vol] 1.04 ng/dL Normal 0.76-1.46 [facility] Comment on above: Performed By: #### F T4 #### [facility] [address] [place] [address] Dr. Meghna Alas GLYCOHEMOGLOBIN A1Con 2022 ADA RECOMMENDATION SEE BELOW Normal [facility] Comment on above: Result Comment: ADA RECOMMENDED LIMIT 4.0 - 6.0 ADA THERAPEUTIC TARGET < 7.0 ACTION SUGGESTED > 7.0 Performed By: #### A 1C #### [facility] [address] [place] [address] Dr. Meghna Alas Glucose [Mass/Vol] 82 mg/dL Normal [facility] Comment on above: Performed By: #### A 1C #### [facility] [address] [place] [address] Dr. Meghna Alas HbA1c (Bld) [Mass fraction] 4.5 % Normal 4.5-6.2 [facility] Comment on above: Performed By: #### A 1C #### [facility] [address] [place] [address] Dr. Meghna Alas TSHon 07-26-2022 TSH 1.522 uIU/mL Normal 0.358-3.740 [facility] Comment on above: Performed By: #### T #### [facility] [address] [place] [address] Dr. Meghna Alas Vital Signs Date Time Vital Sign Value Performing Clinician Facility 01-03-2025 10:15-0400 Body mass index (BMI) [Ratio] 39.47 kg/m2 Layo Sherwin DO Work Phone: [facility] 01-03-2025 10:15-0400 Body weight 101.06 kg Layo Sherwin DO Work Phone: [facility] 01-03-2025 10:15-0400 Diastolic blood pressure 74 mm[Hg] Layo Sherwin DO Work Phone: [facility] 01-03-2025 10:15-0400 Systolic blood pressure 118 mm[Hg] Layo Sherwin DO Work Phone: [facility] 12-19-2024 10:06-0400 Body mass index (BMI) [Ratio] 38.76 kg/m2 Layo Sherwin DO Work Phone: [facility] 12-19-2024 10:06-0400 Body weight 99.25 kg Layo Sherwin DO Work Phone: [facility] 12-19-2024 10:06-0400 Diastolic blood pressure 70 mm[Hg] Layo Sherwin DO Work Phone: [facility] 12-19-2024 10:06-0400 Systolic blood pressure 116 mm[Hg] Layo Sherwin DO Work Phone: [facility] 12-06-2024 08:33-0400 Body mass index (BMI) [Ratio] 38.09 kg/m2 Layo Sherwin DO Work Phone: [facility] 12-06-2024 08:33-0400 Body weight 97.52 kg Layo Sherwin DO Work Phone: [facility] 12-06-2024 08:33-0400 Diastolic blood pressure 70 mm[Hg] Layo Sherwin DO Work Phone: [facility] 12-06-2024 08:33-0400 Systolic blood pressure 100 mm[Hg] Layo Sherwin DO Work Phone: [facility] 11-08-2024 14:59-0400 Body mass index (BMI) [Ratio] 35.59 kg/m2 Layo Sherwin DO Work Phone: [facility] 11-08-2024 14:59-0400 Body weight 91.13 kg Layo Sherwin DO Work Phone: [facility] 11-08-2024 14:59-0400 Diastolic blood pressure 80 mm[Hg] Layo Sherwin DO Work Phone: [facility] 11-08-2024 14:59-0400 Systolic blood pressure 122 mm[Hg] Layo Sherwin DO Work Phone: [facility] 10-17-2024 13:08-0400 Body mass index (BMI) [Ratio] 35.52 kg/m2 Layo Sherwin DO Work Phone: [facility] 10-17-2024 13:08-0400 Body weight 90.95 kg Layo Sherwin DO Work Phone: [facility] 10-17-2024 13:08-0400 Diastolic blood pressure 82 mm[Hg] Layo Sherwin DO Work Phone: [facility] 10-17-2024 13:08-0400 Systolic blood pressure 126 mm[Hg] Layo Sherwin DO Work Phone: [facility] 10-11-2024 14:41-0400 Body mass index (BMI) [Ratio] 35.22 kg/m2 Layo Sherwin DO Work Phone: [facility] 10-11-2024 14:41-0400 Body weight 90.17 kg Layo Sherwin DO Work Phone: [facility] 10-11-2024 14:41-0400 Diastolic blood pressure 74 mm[Hg] Layo Sherwin DO Work Phone: [facility] 10-11-2024 14:41-0400 Systolic blood pressure 112 mm[Hg] Layo Sherwin DO Work Phone: [facility] 09-06-2024 15:31-0400 Body mass index (BMI) [Ratio] 33.17 kg/m2 Brandy Economy PA Work Phone: [facility] 09-06-2024 15:31-0400 Body weight 84.94 kg Brandy Economy PA Work Phone: [facility] 09-06-2024 15:31-0400 Diastolic blood pressure 82 mm[Hg] Brandy Sissy PA Work Phone: [facility] 09-06-2024 15:31-0400 Systolic blood pressure 110 mm[Hg] Brandy Economy PA Work Phone: [facility] 08-08-2024 13:08-0400 Body mass index (BMI) [Ratio] 32.2 kg/m2 Layo Sherwin DO Work Phone: [facility] 08-08-2024 13:08-0400 Body weight 82.46 kg Layo Sherwin DO Work Phone: [facility] 08-08-2024 13:08-0400 Diastolic blood pressure 64 mm[Hg] Layo Sherwin DO Work Phone: [facility] 08-08-2024 13:08-0400 Systolic blood pressure 100 mm[Hg] Layo Sherwin DO Work Phone: [facility] 07-29-2024 09:53-0400 Body mass index (BMI) [Ratio] 31.18 kg/m2 Noms Nurse [facility] 07-29-2024 09:53-0400 Body weight 79.83 kg Nom Nurse [facility] 07-29-2024 09:53-0400 Diastolic blood pressure 72 mm[Hg] Noms Nurse [facility] 07-29-2024 09:53-0400 Systolic blood pressure 118 mm[Hg] Noms Nurse [facility] 04-06-2024 14:04-0500 Blood Pressure Location Mallory Jauregui [facility] 04-06-2024 14:04-0500 Diastolic blood pressure 74 mm[Hg] Mallory Jauregui [facility] 04-06-2024 14:04-0500 Heart rate 80 /min Mallory Jauregui [facility] 04-06-2024 14:04-0500 SaO2% (BldA) [Mass fraction] 100 % Mallory Jauregui [facility] 04-06-2024 14:04-0500 Systolic blood pressure 108 mm[Hg] Mallory Jauregui [facility] 03-22-2024 10:45-0500 Diastolic blood pressure 62 mm[Hg] Juan Chavarria MD Work Phone: [facility] 03-22-2024 10:45-0500 Heart rate 65 /min Juan Chavarria MD Work Phone: [facility] 03-22-2024 10:45-0500 Respiratory rate 17 /min Juan Chavarria MD Work Phone: [facility] 03-22-2024 10:45-0500 SaO2% (BldA) [Mass fraction] 100 % Juna Chavarria MD Work Phone: [facility] 03-22-2024 10:45-0500 Systolic blood pressure 94 mm[Hg] Juan Chavarria MD Work Phone: [facility] 03-22-2024 09:45-0500 Body temperature 97.3 [degF] Juan Chavarria MD Work Phone: [facility] 03-22-2024 08:29-0500 Body height 160 cm Juan Chavarria MD Work Phone: [facility] 03-22-2024 08:29-0500 Body mass index (BMI) [Ratio] 29.25 kg/m2 Juan Chavarria MD Work Phone: [facility] 03-22-2024 08:29-0500 Body weight 74.9 kg Juan Chavarria MD Work Phone: [facility] 02-23-2024 09:49-0400 Body temperature 97.7 [degF] Juan Chavarria MD Work Phone: [facility] 02-23-2024 09:49-0400 Diastolic blood pressure 65 mm[Hg] Juan Chavarria MD Work Phone: [facility] 02-23-2024 09:49-0400 Heart rate 94 /min Juan Chavarria MD Work Phone: [facility] 02-23-2024 09:49-0400 Respiratory rate 22 /min Juan Chavarria MD Work Phone: [facility] 02-23-2024 09:49-0400 SaO2% (BldA) [Mass fraction] 100 % Juan Chavarria MD Work Phone: [facility] 02-23-2024 09:49-0400 Systolic blood pressure 102 mm[Hg] Juan Chavarria MD Work Phone: [facility] 02-23-2024 07:27-0400 Body height 160 cm Juan Chavarria MD Work Phone: [facility] 02-23-2024 07:27-0400 Body mass index (BMI) [Ratio] 29.41 kg/m2 Juan Chavarria MD Work Phone: [facility] 02-23-2024 07:27-0400 Body weight 75.3 kg Juan Chavarria MD Work Phone: [facility] 01-28-2024 10:31-0400 Diastolic blood pressure 59 mm[Hg] Leigh Ann Tuttle MD Work Phone: [facility] 01-28-2024 10:31-0400 Heart rate 71 /min Leigh Ann Tuttle MD Work Phone: [facility] 01-28-2024 10:31-0400 Respiratory rate 20 /min Leigh Ann Tuttle MD Work Phone: [facility] 01-28-2024 10:31-0400 SaO2% (BldA) [Mass fraction] 100 % Leigh Ann Tuttle MD Work Phone: [facility] 01-28-2024 10:31-0400 Systolic blood pressure 101 mm[Hg] Leigh Ann Tuttle MD Work Phone: [facility] 01-28-2024 09:31-0400 Body temperature 98.1 [degF] Leigh Ann Tuttle MD Work Phone: [facility] 01-28-2024 08:48-0400 Body height 160 cm Leigh Ann Tuttle MD Work Phone: [facility] 01-28-2024 08:48-0400 Body mass index (BMI) [Ratio] 29.21 kg/m2 Leigh Ann Tuttle MD Work Phone: [facility] 01-28-2024 08:48-0400 Body weight 74.8 kg Leigh Ann Tuttle MD Work Phone: [facility] 01-14-2024 10:52-0400 Body mass index (BMI) [Ratio] 29.43 kg/m2 Brandy SEARS Work Phone: [facility] 01-14-2024 10:52-0400 Body weight 75.35 kg Brandy SEARS Work Phone: [facility] 01-14-2024 10:52-0400 Diastolic blood pressure 70 mm[Hg] Brandy SEARS Work Phone: [facility] 01-14-2024 10:52-0400 Systolic blood pressure 120 mm[Hg] Brandy SEARS Work Phone: [facility] 12-28-2023 10:09-0400 Body height 160 cm Juan Chavarria MD Work Phone: [facility] 12-28-2023 10:09-0400 Body mass index (BMI) [Ratio] 30.11 kg/m2 Juan Chavarria MD Work Phone: [facility] 12-28-2023 10:09-0400 Body weight 77.11 kg Juan Chavarria MD Work Phone: [facility] 12-28-2023 10:09-0400 Diastolic blood pressure 81 mm[Hg] Juan Chavarria MD Work Phone: [facility] 12-28-2023 10:09-0400 Heart rate 62 /min Juan Chavarria MD Work Phone: [facility] 12-28-2023 10:09-0400 Systolic blood pressure 119 mm[Hg] Juan Chavarria MD Work Phone: [facility] 2023 08:46-0400 Body height 160 cm Trish Thorpe [employer] Work Phone: [facility] 2023 08:46-0400 Body mass index (BMI) [Ratio] 29.23 kg/m2 Trish Thorpe [employer] HOST[employer] Work Phone: [facility] 2023 08:46-0400 Body weight 74.84 kg Trishchai Thorpe [employer] Work Phone: [facility] 2023 08:46-0400 Diastolic blood pressure 67 mm[Hg] Trish Thorpe [employer] Work Phone: [facility] 2023 08:46-0400 Heart rate 72 /min Trish Thorpe [employer] Work Phone: [facility] 2023 08:46-0400 Systolic blood pressure 122 mm[Hg] Trish Thorpe [employer] Work Phone: [facility] 10-02-2023 11:14-0400 Blood Pressure Location Princess Rapp [facility] 10-02-2023 11:14-0400 Body temperature 98.24 [degF] Princess Rapp [facility] 10-02-2023 11:14-0400 Diastolic blood pressure 66 mm[Hg] Princess Rapp [facility] 10-02-2023 11:14-0400 Heart rate 65 /min Princess Rapp [facility] 10-02-2023 11:14-0400 SaO2% (BldA) [Mass fraction] 98 % Princess Rapp [facility] 10-02-2023 11:14-0400 Systolic blood pressure 118 mm[Hg] Princess Rapp [facility] 08-27-2023 17:44-0400 Blood Pressure Location Princess Rapp [facility] 08-27-2023 17:44-0400 Body temperature 98.06 [degF] Princess Rapp [facility] 08-27-2023 17:44-0400 Diastolic blood pressure 76 mm[Hg] Princess Rapp [facility] 08-27-2023 17:44-0400 Heart rate 85 /min Princess Rapp [facility] 08-27-2023 17:44-0400 Respiratory rate 14 /min Princess Rapp [facility] 08-27-2023 17:44-0400 SaO2% (BldA) [Mass fraction] 99 % Princess Rapp [facility] 08-27-2023 17:44-0400 Systolic blood pressure 110 mm[Hg] Princess Rapp [facility] 02-19-2023 07:41-0400 Body temperature 97.7 [degF] Princess Rapp [facility] 02-19-2023 07:41-0400 Diastolic blood pressure 70 mm[Hg] Princess Rapp [facility] 02-19-2023 07:41-0400 Heart rate 81 /min Princess Rapp [facility] 02-19-2023 07:41-0400 SaO2% (BldA) [Mass fraction] 99 % Princesssourav Rapp [facility] 02-19-2023 07:41-0400 Systolic blood pressure 110 mm[Hg] Princess Rapp [facility] 07-24-2021 16:57-0400 Blood Pressure Location Leigh Ann Bojorquezell [facility] 07-24-2021 16:57-0400 Body temperature 97.7 [degF] Leigh Ann Bojorquezell [facility] 07-24-2021 16:57-0400 Diastolic blood pressure 68 mm[Hg] Leigh Ann Covington [facility] 07-24-2021 16:57-0400 Heart rate 88 /min Leigh Ann Covington [facility] 07-24-2021 16:57-0400 SaO2% (BldA) [Mass fraction] 99 % Leigh Ann Covington [facility] 07-24-2021 16:57-0400 Systolic blood pressure 122 mm[Hg] Leigh Ann Covington [facility] Encounters Encounter Date Encounter Type Care Provider Facility Start: 01-03-2025 End: 01-03-2025 Bamboo flowsheet Layo Sherwin DO Work Phone: [facility] Start: 01-03-2025 End: 01-03-2025 Bamboo flowsheet Layo Sherwin DO Work Phone: [facility] Start: 01-03-2025 End: 01-03-2025 flow sheet Layo Sherwin DO Work Phone: [facility] Comment on above: Third trimester preg rehan ([facility]); 31 weeks gestation of ([facility]); resulting from in vitro fertilization in third trimester ([facility]) Start: 01-03-2025 End: 01-03-2025 ambulatory LAYO SHERWIN Not Available Start: 12-19-2024 End: 12-19-2024 flow sheet Layo Sherwin DO Work Phone: [facility] Comment on above: 29 weeks gestation o f ([facility]); Third trimester ([facility]); Leukocytes in urine; Other microscopic hematuria Start: 12-19-2024 End: 12-19-2024 ambulatory LAYO SHERWIN Not Available Start: 12-06-2024 End: 12-06-2024 Bamboo flowsheet Layo Sherwin DO Work Phone: [facility] Start: 12-06-2024 End: 12-06-2024 Bamboo flowsheet Layo Sherwin DO Work Phone: [facility] Start: 12-06-2024 End: 12-06-2024 Clinisync Result Encounter Layo Sherwin DO Work Phone: [facility] Unsolicited Start: 12-06-2024 End: 12-06-2024 flow sheet Layo Sherwin DO Work Phone: [facility] Comment on above: 27 weeks gestation o f ([facility]); Second trimester ([facility]) Start: 12-06-2024 End: 12-06-2024 ambulatory LAYO SHERWIN Not Available Start: 11-26-2024 End: 11-26-2024 Clinisync Result Encounter Layo Sherwin DO Work Phone: [facility] Unsolicited Start: 11-26-2024 End: 11-26-2024 Clinisync Result Encounter Layo Sherwin DO Work Phone: [facility] Unsolicited Start: 11-08-2024 End: 11-08-2024 flow sheet Layo Sherwin DO Work Phone: [facility] Comment on above: Second trimester pre gnancy ([facility]); 26 weeks gestation of ([facility]); Diabetes mellitus screening Start: 11-08-2024 End: 11-08-2024 [...] pain without sciatica (Primary Dx); Second trimester ([facility]); 20 weeks gestation of ([facility]) Start: 10-17-2024 End: 10-17-2024 ambulatory LAYO SHERWIN Not Available Start: 10-11-2024 End: 10-11-2024 flow sheet Layo Sherwin DO Work Phone: [facility] Comment on above: Second trimester pre gnancy; 19 weeks gestation of ; Pruritus Start: 10-11-2024 End: 10-11-2024 ambulatory LAYONilsa NAVARROO Not Available Start: 10-11-2024 End: 10-11-2024 Bamboo [...] 10-07-2024 Subsequent hospital visit by physician Myles Mckinney [facility]gyn[facility] Ultrasound 1 [facility] Comment on above: ([facility]) Start: 10-07-2024 End: 10-07-2024 ambulatory LAYO [facility] Start: 09-22-2024 End: 09-22-2024 ambulatory BRANDY SHEEHAN [...] End: 07-11-2024 Patient encounter procedure Donya Abernathy [employer] Work Phone: [facility] Comment on above: Fertility testing (P rimary Dx); Encounter to determine viability of , single or unspecified fetus Start: 07-11-2024 End: 07-11-2024 ambulatory DONYA ABERNATHY [facility] Start: 06-30-2024 End: 06-30-2024 ambulatory [facility] Start: 06-23-2024 End: 06-23-2024 [facility] Start: 06-23-2024 End: 06-23-2024 ambulatory [facility] Start: 06-13-2024 End: 06-13-2024 Subsequent hospital visit by physician Juan Chavarria MD Work Phone: [facility] Comment on above: Encounter for assist ed reproductive fertility cycle Start: 06-13-2024 End: 06-13-2024 ambulatory [facility] Start: 06-07-2024 End: 06-07-2024 ambulatory [facility] Start: 06-06-2024 End: 06-06-2024 [facility] Start: 06-06-2024 End: 06-06-2024 Professional / ancillary services management Myles [id number] Kels[facility] Ul[facility]ound [facility] Comment on above: Female infertility Start: 06-06-2024 End: 06-06-2024 ambulatory [facility] Start: 05-23-2024 End: 05-23-2024 ambulatory [facility] Start: 04-06-2024 ambulatory Mallory Jauregui [facility] Start: 04-06-2024 End: 04-06-2024 Patient encounter procedure Mallory Jauregui [facility] Start: 03-22-2024 End: 03-22-2024 Subsequent hospital visit by physician Juan Chavarria MD Work Phone: [facility] Comment on above: Encounter for assist ed reproductive fertility cycle Start: 03-22-2024 End: 03-22-2024 ambulatory JUAN Zamora [facility] Start: 03-21-2024 End: 03-21-2024 ambulatory [facility] Start: 03-20-2024 End: 03-20-2024 Professional / ancillary services management Mac [id number] Kelsy Ultrasound [facility] Comment on above: Female infertility Start: 03-20-2024 End: 03-20-2024 [facility] Start: 03-19-2024 End: 03-19-2024 Professional / ancillary services management Mac [id number] Kels[facility] Ultrasound [facility] Comment on above: Female infertility Start: 03-19-2024 End: 03-19-2024 [facility] Start: 03-17-2024 End: 03-17-2024 [facility] Start: 03-17-2024 End: 03-17-2024 Professional / ancillary services management Mac [id number] Kelsy Ultrasound Val[facility] Hay Comment on above: Female infertility Start: 03-17-2024 End: 03-17-2024 [facility] Start: 03-15-2024 End: 03-15-2024 [facility] Start: 03-15-2024 End: 03-15-2024 [facility] Start: 03-15-2024 End: 03-15-2024 Professional / ancillary services management Mac [id number] Kelsy Ultrasound [facility] Hay Comment on above: Female infertility Start: 03-09-2024 End: 03-09-2024 [facility] Start: 03-09-2024 End: 03-09-2024 Patient encounter status [facility] Start: 03-09-2024 End: 03-09-2024 Professional / ancillary services management Mac [id number] Kesly Ultrasound Valeria Hay Comment on above: Female infertility; Pre-procedure lab exam Start: 03-09-2024 End: 03-09-2024 [facility] AMERICA QUINTANILLA [facility] Start: 02-23-2024 End: 02-23-2024 Subsequent hospital visit by physician Juan Chavarria MD Work Phone: [facility] Comment on above: Encounter for assist ed reproductive fertility cycle Start: 02-23-2024 End: 02-23-2024 ambulatory JUAN Zamora [facility] Start: 02-22-2024 End: 02-22-2024 ambulatory [facility] Start: 02-21-2024 End: 02-21-2024 Professional / ancillary services management Mac [id number] Kels[facility] Ultrasound [facility] Hay Comment on above: Female infertility Start: 02-21-2024 End: 02-21-2024 ambulatory AMERICA Del Real [facility] Start: 02-20-2024 End: 02-20-2024 ambulatory [facility] Start: 02-20-2024 End: 02-20-2024 Professional / ancillary services management Mac [id number] Kels[facility] Ultrasound Valeria Hay Comment on above: Female infertility Start: 02-20-2024 End: 02-20-2024 ambulatory AMERICA R [facility] Start: 02-18-2024 End: 02-18-2024 [facility] Start: 02-18-2024 End: 02-18-2024 Professional / ancillary services management Mac [id number] Kelsy Ultrasound Valeria Hay Comment on above: Female infertility Start: 02-18-2024 End: 02-18-2024 [facility] AMERICA Del Real [facility] Start: 02-16-2024 End: 02-16-2024 Professional / ancillary services management Myles [id number] Kels[facility] Ultrasound [facility] Comment on above: Female infertility Start: 02-16-2024 End: 02-16-2024 ambulatory AMERICA R [facility] Start: 02-09-2024 End: 02-09-2024 Patient encounter status [facility] Start: 02-09-2024 End: 02-09-2024 Professional / ancillary services management Mac [id number] Kelsy Ultrasound [facility] Comment on above: Pre-procedure lab ex am; Female infertility Start: 02-09-2024 End: 02-09-2024 ambulatory AMERICA R [facility] Start: 02-02-2024 End: 02-02-2024 ambulatory [facility] Start: 01-28-2024 End: 01-28-2024 Subsequent hospital visit by physician [facility]uttle [facility] Comment on above: Endometrial polyp Start: 01-28-2024 End: 01-28-2024 ambulatory LEIGH ANN TUTTLE [facility] Start: 01-25-2024 End: 01-25-2024 ambulatory [facility] Start: 01-25-2024 End: 01-25-2024 Encounter for preprocedural laboratory examination [facility] Start: 01-14-2024 End: 01-14-2024 Bamboo flowsheet Brandy [...] encounter procedure Juan Chavarria MD Work Phone: [facility] Comment on above: Fertility testing [Z 31.41] (Primary Dx); 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 [Z31.81, N97.8] Start: 12-28-2023 End: 12-28-2023 ambulatory JUAN CHAVARRIA [facility] Start: 12-25-2023 End: 12-25-2023 ambulatory AFUA Banks ENZO [facility] Start: 2023 End: 2023 ambulatory TRISH [facility] Start: 2023 End: 2023 Patient encounter procedure Trish Thorpe [employer] Work Phone: [facility] Comment on above: Encounter for screen ing for other viral diseases (Primary Dx); Encounter for Rh blood typing; Screening for STDs (sexually transmitted diseases); Genetic screening; Fertility testing; Female infertility associated with male factors Start: 2023 End: 2023 Patient encounter status Trish Thorpe [employer] Work Phone: [facility] Work Phone: Start: 2023 End: 2023 ambulatory TRISH Polo [facility] Start: 2023 End: 2023 Encounter for blood typing TRISH Polo [facility] Start: 10-21-2023 ambulatory Princess Rapp [facility] Start: 10-02-2023 End: 10-02-2023 ambulatory Princess Rapp Facility:[facility] Start: 10-02-2023 End: 10-02-2023 Patient encounter procedure Princess Rapp [facility] Start: 08-27-2023 End: 08-27-2023 ambulatory Princess Rapp [facility] Start: 08-27-2023 End: 08-27-2023 Patient encounter procedure Princess Rapp [facility] Start: 03-25-2023 End: 03-25-2023 Patient encounter procedure Princess Rapp [facility] Start: 02-19-2023 End: 02-19-2023 Patient encounter procedure Princess Rapp [facility] Start: 07-26-2022 End: 07-27-[address] LAYO COURTNEY . Facility:[facility] Start: 07-23-2022 End: 07-23-[address] LAYO COURTNEY . Facility:[facility] Start: 07-24-2021 End: 07-24-2021 Patient encounter procedure Leigh Ann Covington [facility] Procedures Date Procedure Procedure Detail Performing Clinician Start: 01-03-2025 Urnls dip stick/tabl et rgnt non-auto w/o micrscp Layo Sherwin DO Work Phone: Start: 12-19-2024 Urnls dip stick/tabl et rgnt non-auto w/o micrscp Layo Sherwin DO Work Phone: Start: 12-06-2024 GLUCOSE TOLERANCE 3 HOUR Layo Sherwin DO Work Phone: Start: 12-06-2024 Urnls dip stick/tabl et rgnt non-auto w/o micrscp Layo Sherwin DO Work Phone: Start: 11-26-2024 ALL CBC WITH AUTO DIFF Layo Sherwin DO Work Phone: Start: 11-09-2024 Urnls dip stick/tabl et rgnt non-auto w/o micrscp Layo Sherwin DO Work Phone: Start: 10-17-2024 Urnls dip stick/tabl et rgnt non-auto w/o micrscp Layo Sherwin DO Work Phone: Start: 10-11-2024 ALL CBC WITH AUTO DIFF Layo Sherwin DO Work Phone: Start: 10-07-2024 Us preg uterus w/det ail kehinde 1st gestation Layo Courtney DO Work Phone: Start: 10-07-2024 Us preg uterus w/det ail kehinde 1st gestation Layo Navarroo DO Work Phone: Start: 09-06-2024 RECURRENT VAGINITIS [...] nonobstetr ic image dcmtn limited/f/u Donya Abernathy [employer] Work Phone: Start: 03-22-2024 Follicle puncture oo cyte retrieval any method Donya Abernathy [employer] Work Phone: Start: 03-20-2024 Us pelvic nonobstetr ic image dcmtn limited/f/u Donya Abernathy [employer] Work Phone: Start: 03-20-2024 Assay of estradiol America Quintanilla [employer] Work Phone: Start: 03-19-2024 Us pelvic nonobstetr ic image dcmtn limited/f/u Donya Abernathy [employer] Work Phone: Start: 03-17-2024 Us pelvic nonobstetr ic image dcmtn limited/f/u Donya Abernathy [employer] Work Phone: Start: 03-17-2024 Assay of estradiol Donya Abernathy [employer] Work Phone: Start: 03-15-2024 Us pelvic nonobstetr ic image dcmtn limited/f/u Donya Abernathy [employer] Work Phone: Start: 03-15-2024 Assay of estradiol Donya Abernathy [employer] Work Phone: Start: 03-09-2024 Us pelvic nonobstetr ic image dcmtn limited/f/u America R Dwight [employer] Work Phone: Start: 03-09-2024 Blood count hematocrit Donya Abernathy [employer] Work Phone: Start: 02-23-2024 Follicle puncture oo cyte retrieval any method Beth Warren MD Work Phone: Start: 02-21-2024 Us pelvic nonobstetr ic image dcmtn limited/f/u America R Dwight [employer] Work Phone: Start: 02-21-2024 Gonadotropin luteini zing hormone Beti Warren MD Work Phone: Start: 02-18-2024 Us pelvic nonobstetr ic image dcmtn limited/f/u America R Dwight [employer] Work Phone: Start: 02-18-2024 Assay of estradiol America R Dwight [employer] Work Phone: Start: 02-16-2024 Assay of estradiol America R Dwight [employer] Work Phone: Start: 02-09-2024 Blood count hematocrit America R Dwight [employer] Work Phone: Start: 02-09-2024 Us pelvic nonobstetr ic image dcmtn limited/f/u America R Dwight [employer] Work Phone: Start: 01-28-2024 Hysteroscopy bx endometrium&/polypc w/wo d&c Juan Chavarria MD Work Phone: Start: 01-28-2024 Urine test visual color cmprsn meths Leigh Ann Tuttle MD Work Phone: Start: 01-14-2024 IGP,APTIMA HPV,AGE GDLN Brandy Sissy PA Work Phone: Start: 01-14-2024 Microscopic observat ion [Identifier] in Cervix by Cyto stain Leigh Ann Tuttle MD Work Phone: Start: 11-15-2015 Right Knee Arthrosco py with Medial Meniscal Repair Leigh Ann Covington Start: 07-28-2013 right knee anterior cruciate ligament allograft reconstruction with [id number], debridment medial meniscus tear, patellofemoral chondroplasty-Grade I-II Leigh Ann Covington Tonsillectomy Leigh Ann Covington tubes in the ears Leigh Ann Himanshu bartholomew Plan of Treatment Date Care Activity Detail Author Start: 2072 RSV High Risk: (Elderly (60+) or Population) (1 - 1-dose 75+ series) RSV High Risk: (Elderly (60+) or Population) (1 - 1-dose 75+ series) [facility] Start: 12-12-2047 Zoster Vaccines (1 of 2) Zoster Vaccines (1 of 2) [facility] Start: 01-13-2027 Screening for malignant neoplasm of cervix [facility] Start: 01-16-2025 End: 01-16-2025 Patient encounter procedure 01/16/2025 2:50 PM EDT Routine [facility] [address] [place] [address] Layo Courtney, DO [address] [place] [address] [facility] Start: 01-03-2025 End: 07-03-2025 US biophysical profile w non stress test US biophysical profile w non stress test Imaging Routine resulting from in vitro fertilization in third trimester ([facility]) Expected: 01/03/2025 (Approximate), Expires: 07/03/2025 [facility] Work Phone: Comment on above: Expected: 01/03/2025 (Approximate), Expi res: 07/03/2025 Start: 01-03-2025 End: 01-03-2025 Patient encounter procedure [facility] Comment on above: Arrived Start: 01-02-2025 Influenza vaccination Influenza Vaccine (Season Ended) [facility] Start: 12-19-2024 End: 12-19-2024 Professional / ancillary services management 12/19/2024 9:30 AM EDT Ancillary Procedure [facility] [address] [place] [id number] [facility] Start: 12-19-2024 End: 12-19-2024 Patient encounter procedure [facility] Start: 12-06-2024 End: 12-06-2024 Patient encounter procedure [facility] Comment on above: Arrived Start: 11-08-2024 End: 11-08-2024 Patient encounter procedure 11/08/2024 2:40 PM EDT Routine [facility] [address] [place] [id number] Layo Courtney DO [address] [place] [address] [facility] Start: 11-08-2024 End: 11-08-2025 [...] mellitus screening Expected: 11/08/2024 (Approximate), Expires: 11/08/2025 [facility] Comment on above: Expected: 11/08/2024 (Approximate), Expi res: 11/08/2025 Start: 10-17-2024 End: 10-17-2024 Patient encounter procedure 10/17/2024 1:00 PM EDT Routine [facility] [address] [place] [id number] Layo Courtney DO [address] [place] [address] Arrived [facility] Comment on above: Arrived Start: 10-11-2024 End: 10-11-2024 Patient encounter procedure [facility] Comment on above: Arrived Start: 10-11-2024 End: 10-11-2025 Bile acids, total Bile acids, total Lab Routine Pruritus Expected: 10/11/2024 (Approximate), Expires: 10/11/2025 [facility] Comment on above: Expected: 10/11/2024 (Approximate), Expi res: 10/11/2025 Start: 10-11-2024 End: 10-11-2025 CBC W Auto Differential panel - Blood CBC and differential Lab Routine Pruritus Expected: 10/11/2024 (Approximate), Expires: 10/11/2025 [facility] Comment on above: Expected: 10/11/2024 (Approximate), Expi res: 10/11/2025 Start: 10-11-2024 End: 10-11-2025 Hepatic function 2000 panel - Serum or Plasma Hepatic function panel Lab Routine Pruritus Expected: 10/11/2024 (Approximate), Expires: 10/11/2025 [facility] Comment on above: Expected: 10/11/2024 (Approximate), Expi res: 10/11/2025 Start: 10-11-2024 End: 10-11-2025 Hepatitis C virus Ab [Presence] in Serum or Plasma by Immunoassay Hepatitis C antibody Lab Routine Pruritus Expected: 10/11/2024 (Approximate), Expires: 10/11/2025 [facility] Work Phone: Comment on above: Expected: [...] Second trimester Expected: 09/06/2024 (Approximate), Expires: 11/06/2024 [facility] Comment on above: Expected: 09/06/2024 (Approximate), Expi res: 11/06/2024 Start: 09-06-2024 End: 12-07-2024 US for US OB 14+ weeks anatomy scan Imaging Routine Screening, , for anatomic survey Expected: 09/06/2024, Expires: 12/07/2024 [facility] Comment on above: Expected: 09/06/2024, [...] gestational age Expected: 07/29/2024 (Approximate), Expires: 07/29/2025 [facility] Work Phone: Comment on above: Expected: 07/29/2024 (Approximate), Expi res: 07/29/2025 Start: 07-29-2024 End: 07-29-2025 Drugs of abuse panel - Urine by Screen method Rapid drug screen, urine Lab Routine , unspecified gestational age Encounter for supervision of normal first in first trimester Expected: 07/29/2024 (Approximate), Expires: 07/29/2025 [facility] Comment on above: Expected: 07/29/2024 (Approximate), Expi res: 07/29/2025 Start: 07-11-2024 End: 07-11-2025 Progesterone [Mass/volume] in Serum or Plasma Progesterone Lab Routine Fertility testing Expected: 07/11/2024 (Approximate), Expires: 07/11/2025 [facility] Service Area Work Phone: Comment on above: Expected: 07/11/2024 (Approximate), Expi res: 07/11/2025 Start: 06-23-2024 Orders Only 06/23/2024 Orders Only Valeria Hay [address] [place] [address] [address] Ira Lopez RN Encounter for test, result unknown [facility] Comment on above: Encounter for test, result unk nown Start: 03-20-2024 End: 03-20-2025 Lutropin [Units/volume] in Serum or Plasma Luteinizing Hormone Lab STAT Female infertility Expected: 03/20/2024 (Approximate), Expires: 03/20/2025 [facility] Work Phone: Comment on above: Expected: 03/20/2024 (Approximate), Expi res: 03/20/2025 Start: 03-20-2024 End: 03-20-2025 Progesterone [Mass/volume] in Serum or Plasma Progesterone Lab STAT Female infertility Expected: 03/20/2024 (Approximate), Expires: 03/20/2025 [facility] Service Area Work Phone: Comment on above: Expected: 03/20/2024 (Approximate), Expi res: 03/20/2025 Start: 03-20-2024 End: 03-20-2024 Professional / ancillary services management 03/20/2024 8:00 AM EST Ancillary Procedure [facility] [address] [place] [address] [facility] Start: 03-19-2024 End: 03-19-2024 Professional / ancillary services management 03/19/2024 8:30 AM EST Ancillary Procedure [facility] [address] [place] [address] [facility] Start: 03-17-2024 End: 03-17-2025 Estradiol (E2) [Mass/volume] in Serum or Plasma Estradiol Lab STAT Female infertility Expected: 03/17/2024 (Approximate), Expires: 03/17/2025 [facility] Service Area Work Phone: Comment on above: Expected: 03/17/2024 (Approximate), Expi res: 03/17/2025 Start: 03-17-2024 End: 03-17-2025 Progesterone [Mass/volume] in Serum or Plasma [facility] Work Phone: Comment on above: Expected: 03/17/2024 (Approximate), Expi res: 03/17/2025 Start: 03-17-2024 End: 03-17-2024 Professional / ancillary services management 03/17/2024 6:45 AM EST Ancillary Procedure [facility] [address] [place] [address] [facility] Start: 03-15-2024 End: 03-15-2024 Professional / ancillary services management 03/15/2024 6:45 AM EST Ancillary Procedure [facility] [address] [place] [address] [facility] Start: 03-09-2024 End: 03-09-2024 Professional / ancillary services management 03/09/2024 7:15 AM EST Ancillary Procedure [facility] [address] [place] [address] Valeria Hay Start: 02-23-2024 End: 02-23-2024 Patient encounter procedure 02/23/2024 8:30 AM EDT Appointment Valeria Hay [address] [place], [place] [phone] Juan Chavarria MD [address] Alexia Darío Hay, Brodie [address] [place] [address] [place] [address] Manuela sera Department of Anesthesiology [place] [address] Shaw Darío Hay Start: 02-21-2024 End: 02-21-2024 Professional / ancillary services management 02/21/2024 8:30 AM EDT Ancillary Procedure Valeria Hay [address] [place] [phone] [facility] D[facility]adi [facility] Start: 02-20-2024 End: 02-17-2025 Estradiol (E2) [Mass/volume] in Serum or Plasma Estradiol Lab STAT Female infertility Expected: 02/20/2024 (Approximate), Expires: 02/17/2025 [facility] Service Area Work Phone: Comment on above: Expected: 02/20/2024 (Approximate), Expi res: 02/17/2025 Start: 02-20-2024 End: 02-17-2025 Progesterone [Mass/volume] in Serum or Plasma Progesterone Lab STAT Female infertility Expected: 02/20/2024 (Approximate), Expires: 02/17/2025 [facility] Work Phone: Comment on above: Expected: 02/20/2024 (Approximate), Expi res: 02/17/2025 Start: 02-20-2024 End: 02-20-2024 Professional / ancillary services management 02/20/2024 8:30 AM EDT Ancillary Procedure Valeria Hay [address] [place] [phone] Valeria Hay Start: 02-18-2024 End: 02-18-2024 Professional / ancillary services management 02/18/2024 7:45 AM EDT Ancillary Procedure Valeria Hay [address] [place] [address] Valeria Hay Start: 02-16-2024 End: 02-16-2024 Professional / ancillary services management 02/16/2024 7:15 AM EDT Ancillary Procedure [facility] [address] [place] [address] [facility] Start: 02-09-2024 End: 02-09-2024 Professional / ancillary services management 02/09/2024 7:15 AM EDT Ancillary Procedure [facility] [address] [place] [address] [facility] Start: 01-14-2024 End: 01-14-2024 Patient encounter procedure 01/14/2024 11:00 AM EDT Office Visit [facility] [address] [facility] [place] [phone] Brandy Sheehan PA [address] [place], [place] [phone] Arrived [facility] Comment on above: Arrived Start: 01-03-2024 COVID-19 Vaccine ( season) COVID-19 Vaccine ( season) [facility] Start: 01-03-2024 COVID-19 Vaccine ( season) COVID-19 Vaccine ( season) [facility] Start: 01-03-2024 Influenza vaccination Influenza Vaccine (#1) [facility] Start: 12-25-2023 End: 12-25-2023 Telemedicine consultation with patient 12/25/2023 9:00 AM EDT Telemedicine Clinical Support [facility] [address] [place] [phone] Afua Julian I, [facility] [address] [address] [facility] [place] [address] [facility] Start: 2023 End: 12-10-2024 Chlamydia trachomatis and Neisseria gonorrhoeae DNA [Identifier] in Unspecified specimen by EDELMIRA with probe detection [facility] Work Phone: Comment on above: Expected: 2023 (Approximate), Expi res: 12/10/2024 Start: 2023 End: 12-10-2024 Hepatitis B virus surface Ag [Presence] in Serum or Plasma by Immunoassay [facility] Work Phone: Comment on above: Expected: 2023 (Approximate), Expi res: 12/10/2024 Start: 2023 End: 12-10-2024 Hepatitis C virus Ab [Presence] in Serum [facility] Work Phone: Comment on above: Expected: 2023 (Approximate), Expi res: 12/10/2024 Start: 2023 End: 12-10-2024 HIV 1+2 Ab+HIV1 p24 Ag [Presence] in Serum or Plasma by Immunoassay [facility] Work Phone: Comment on above: Expected: 2023 (Approximate), Expi res: 12/10/2024 Start: 2023 End: 12-10-2024 Rubella virus IgG Ab [Units/volume] in Serum [facility] Service Area Work Phone: Comment on above: Expected: 2023 (Approximate), Expi res: 12/10/2024 Start: 2023 End: 12-10-2024 Treponema pallidum IgG+IgM Ab [Presence] in Serum by Immunoassay [facility] Work Phone: Comment on above: Expected: 2023 (Approximate), Expi res: 12/10/2024 Start: 2023 End: 12-10-2024 Varicella zoster virus IgG Ab [Presence] in Serum by Immunoassay [facility] Work Phone: Comment on above: Expected: 2023 (Approximate), Expi res: 12/10/2024 Start: 01-02-2023 COVID-19 Vaccine ( season) COVID-19 Vaccine ( season) [facility] Start: 12-21-2019 DTaP/Tdap/Td Vaccines (2 - Td or Tdap) DTaP/Tdap/Td Vaccines (2 - Td or Tdap) [facility] Start: 2018 Screening for malignant neoplasm of cervix [facility] Start: 2016 Hepatitis B Vaccines (1 of 3 - 19+ 3-dose series) Hepatitis B Vaccines (1 of 3 - 19+ 3-dose series) [facility] Start: 12-12-2015 Hepatitis C screening Hepatitis C Screening [facility] Start: 2012 HPV Vaccines (1 - 3-dose series) HPV Vaccines (1 - 3-dose series) [facility] Start: 03-14-2010 Varicella vaccination Varicella Vaccines (2 of 2 - 2-dose childhood series) [facility] Start: 01-17-2010 MMR Vaccines (1 of 1 - Standard series) MMR Vaccines (1 of 1 - Standard series) [facility] Start: 1997 HIV screening HIV Screening [facility] Start: 1997 Lipid panel Lipid Panel [facility] Start: 1997 Yearly Adult Physical Yearly Adult Physical [facility] Bacteria identified in Urine by Culture Urine culture Microbiology Routine Missed menses Ordered: 07/29/2024 [facility] Comment on above: Ordered: 07/29/2024 Bacteria identified in Urine by Culture Urine culture Microbiology Routine Leukocytes in urine Other microscopic hematuria Ordered: 12/19/2024 [facility] [employer] Work Phone: Comment on above: Ordered: 12/19/2024 CBC W Auto Different ial panel - Blood CBC and differential Lab Routine Missed menses , unspecified gestational age Ordered: 07/29/2024 [facility] [employer] Comment on above: Ordered: 07/29/2024 CHLAMYDIA TRACHOMATI S (GENITO/STI) CHLAMYDIA TRACHOMATIS (GENITO/STI) Lab Routine STD exposure Ordered: 09/06/2024 [facility] Comment on above: Ordered: 09/06/2024 End: 02-23-2024 Choriogonadotropin ( test) [Presence] in Urine POCT , urine manually resulted Point of Care Testing Routine Once (Lab) for 1 Occurrences starting 02/23/2024 until 02/23/2024 [facility] Service Area Work Phone: Comment on above: Once (Lab) for 1 Occurrences starting until 02/23/2024 End: 03-22-2024 Choriogonadotropin ( test) [Presence] in Urine POCT , urine manually resulted Point of Care Testing Routine Once (Lab) for 1 Occurrences starting 03/22/2024 until 03/22/2024 [facility] Service Area Work Phone: Comment on above: Once (Lab) for 1 Occurrences starting until 03/22/2024 End: 06-13-2024 Choriogonadotropin ( test) [Presence] in Urine POCT , urine manually resulted Point of Care Testing Routine Once (Lab) for 1 Occurrences starting 06/13/2024 until 06/13/2024 [facility] Service Area Work Phone: Comment on above: Once (Lab) for 1 Occurrences starting until 06/13/2024 Cytology Cervical or vaginal smear or scraping study Pap Smear Pathology and Cytology Routine Well woman exam with routine gynecological exam Ordered: 01/14/2024 [facility] Work Phone: Comment on above: Ordered: 01/14/2024 Hemoglobin A1c/Hemoglobin.total in Blood Hemoglobin A1c Lab Routine Missed menses , unspecified gestational age Ordered: 07/29/2024 [facility] Comment on above: Ordered: 07/29/2024 Hepatitis B virus abrams rface Ag [Presence] in Serum or Plasma by Immunoassay Hepatitis B surface antigen Lab Routine Missed menses , unspecified gestational age Ordered: 07/29/2024 [facility] Comment on above: Ordered: 07/29/2024 Hepatitis C virus Ab [Presence] in Serum or Plasma by Immunoassay Hepatitis C antibody Lab Routine Missed menses , unspecified gestational age Ordered: 07/29/2024 [facility] Comment on above: Ordered: 07/29/2024 HIV-1/HIV-2 antigen/antibody combination immunoassay HIV-1 and HIV-2 antibodies Lab Routine Missed menses , unspecified gestational age Ordered: 07/29/2024 [facility] Comment on above: Ordered: 07/29/2024 Neisseria gonorrhoea e DNA [Presence] in Unspecified specimen by EDELMIRA with probe detection Neisseria gonorrhea DNA probe, direct Lab Routine STD exposure Ordered: 09/06/2024 [facility] Comment on above: Ordered: 09/06/2024 Reagin Ab [Presence] in Serum by RPR RPR Lab Routine Missed menses , unspecified gestational age Ordered: 07/29/2024 [facility] Comment on above: Ordered: 07/29/2024 KELSY US Pelvis Limite d Follicles - Follicle Studies Performed KELSY US Pelvis Limited Follicles - Follicle Studies Performed Imaging Routine Female infertility 02/16/2024 7:17 AM EDT [facility] Area Work Phone: KELSY US Pelvis Limite d Follicles - Follicle Studies Performed KELSY US Pelvis Limited Follicles - Follicle Studies Performed Imaging Routine Female infertility 02/20/2024 9:06 AM EDT [facility] Work Phone: Rubella antibody, IgG Rubella an tibody, IgG Lab Routine Missed menses , unspecified gestational age Ordered: 07/29/2024 [facility] Comment on above: Ordered: 07/29/2024 SURESWAB(R) ADVANCED VAGINITIS PLUS, TMA SURESWAB(R) ADVANCED VAGINITIS PLUS, TMA Pathology and Cytology Routine STD exposure Ordered: 09/06/2024 [facility] Work Phone: Comment on above: Ordered: 09/06/2024 End: 01-28-2024 Surgical pathology study [facility] Service [facility] Work Phone: Comment on above: Once (Lab) for 1 Occurrences starting until 01/28/2024, 1 completed Once (Lab) for 1 Occ urrences starting 01/28/2024 until 01/28/2024 Immunizations Immunization Date Immunization Notes Care Provider Shahid mares 12-20-2009 meningococcal ACWY vaccine, unspecified formulation Princess Rapp [facility] 12-20-2009 tetanus toxoid, reduced diphtheria toxoid, and acellular pertussis vaccine, adsorbed Princess Rapp [facility] 12-20-2009 varicella virus vaccine Princess Rapp [facility] NEGATED: Highlighted row has not occurred!04-06-2024 influenza virus vaccine, unspecified formulation Mallory Sethicross [facility] NEGATED: Highlighted row has not occurred!06-26-2021 influenza virus vaccine, unspecified formulation Leigh Ann Covington [facility] NEGATED: Highlighted row has not occurred!06-26-2021 SARS-CoV-2 (COVID-19) Ad26 vaccine, recombinant Leigh Annjuan Bojorquezell [facility] NEGATED: Highlighted row has not occurred!01-29-2021 influenza virus vaccine, unspecified formulation Leigh Ann Covington [facility] NEGATED: Highlighted row has not occurred!01-29-2021 SARS-CoV-2 (COVID-19) Ad26 vaccine, recombinant Leigh Ann Covington [facility] NEGATED: Highlighted row has not occurred!05-03-2019 influenza virus vaccine, live, attenuated, for intranasal use Leigh Ann Covington [facility] NEGATED: Highlighted row has not occurred!09-30-2018 influenza virus vaccine, unspecified formulation Leigh Ann Covington [facility] Payers Date Payer Category Payer Managed Care (Private) [id number] [id number] 2022 Private Health Insurance [employer] [id number] 2022 Unknown [id number]. 1.13.647.2. 7.3.116030.315 2022 Unknown [id number] 1997 Unknown [id number] 2.16.840.1.207887.3.579.2. 593 1997 Unknown [id number] 2.16.840.1.768430.3.579.2. 593 1997 Unknown [id number] 2.16.840.1.586619.3.579.2. 727 1997 Unknown [id number] 2.16.840.1.598619.3.579.2. 727 1997 Unknown [id number] 2.16.840.1.743483.3.579.2. 727 1997 Unknown [id number] 2.16.840.1.104156.3.579.2. 727 1997 Unknown [id number] 2.16.840.1.514761.3.579.2. 1243 1997 Unknown [id number] 2.16.840.1.567082.3.579.2. 1243 1997 Unknown [id number] 2.16.840.1.742762.3.579.2. 1242 1997 Unknown [id number] 2.16.840.1.645498.3.579.2. 1244 1997 Unknown [id number] 2.16840.1.137008.3.579.2. 1244 1997 Unknown [id number] 2.16840.1.951358.3.579.2. 1244 1997 Unknown [id number] 2.16840.1.321775.3.579.2. 1244 1997 Unknown [id number] 2.840.1.161090.3.579.2. 1244 1997 Unknown [id number] 2.840.1.266281.3.579.2. 1244 1997 Unknown [id number] 2.840.1.857755.3.579.2. 1244 1997 Unknown [id number] 2.840.1.913051.3.579.2. 1244 1997 Unknown [id number] 2.840.1.307006.3.579.2. 1244 1997 Unknown [id number] 2840.1.530358.3.579.2. 1244 1997 Unknown [id number] 2.840.1.654663.3.579.2. 1244 1997 Unknown [id number] 2.840.1.306972.3.579.2. 1244 1997 Unknown [id number] 2.16840.1.392841.3.579.2. 1244 1997 Unknown [id number] 2.840.1.597715.3.579.2. 1244 1997 Unknown [id number] 2.16.840.1.523364.3.579.2. 1244 1997 Unknown [id number] 2.16.840.1.815851.3.579.2. 1244 1997 Unknown [id number] 2.16.840.1.765874.3.579.2. 1244 1997 Unknown [id number] 2.16.840.1.800787.3.579.2. 1244 1997 Unknown [id number] 2.16.840.1.940990.3.579.2. 1244 1997 Unknown [id number] 2.16840.1.696642.3.579.2. 1244 1997 Unknown [id number] 2.16840.1.514370.3.579.2. 1244 1997 Unknown [id number] 2.840.1.034260.3.579.2. 1244 1997 Unknown [id number] 2.840.1.566284.3.579.2. 1244 1997 Unknown [id number] 2.840.1.966778.3.579.2. 1244 1997 Unknown [id number] 2.16840.1.209181.3.579.2. 1244 1997 Unknown [id number] 2.16840.1.542267.3.579.2. 1244 1997 Unknown [id number] 2.16840.1.106565.3.579.2. 1244 1997 Unknown [id number] 2.16840.1.478888.3.579.2. 1244 1997 Unknown [id number] 2.16.840.1.894627.3.579.2. 1244 1997 Unknown [id number] 2.16840.1.699539.3.579.2. 1244 1997 Unknown [id number] 2.16.840.1.553188.3.579.2. 1244 1997 Unknown [id number] 2.16.840.1.574163.3.579.2. 1244 1997 Unknown [id number] 2.16.840.1.107329.3.579.2. 1244 1997 Unknown [id number] 2.16.840.1.603208.3.579.2. 1244 1997 Unknown [id number] 2.16.840.1.707892.3.579.2. 1244 1997 Unknown [id number] 2.16840.1.771375.3.579.2. 1244 1997 Unknown [id number] 2.16840.1.330691.3.579.2. 1244 1997 Unknown [id number] 2.16840.1.710322.3.579.2. 1258 1997 Unknown [id number] 2.16840.1.007130.3.579.2. 1258 1997 Unknown [id number] 2.16840.1.900710.3.579.2. 1258 1997 Unknown [id number] 2.16840.1.809031.3.579.2. 1258 1997 Unknown [id number] 2.16840.1.227656.3.579.2. 1258 1997 Unknown [id number] 2.16.840.1.343138.3.579.2. 1258 1997 Unknown [id number] 2.16.840.1.358113.3.579.2. 1258 1997 Unknown [id number] 2.16.840.1.511806.3.579.2. 1258 1997 Unknown [id number] 2.16.840.1.104832.3.579.2. 1259 1997 Unknown [id number] 2.16.840.1.179446.3.579.2. 1259 1997 Unknown [id number] 2.16.840.1.999722.3.579.2. 1259 1997 Unknown [id number] 2.16.840.1.080723.3.579.2. 1259 1959 Unknown [id number] 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 Date Type Detail Facility Start: 07-24-2021 End: 03-05-2023 Tobacco smoking status Never smoked tobacco (finding) [facility] Tobacco smoking status Never [facility] Start: 01-14-2024 End: 01-28-2024 Sex Assigned At Female [facility] Start: 2023 Tobacco use and exposure Smokeless tobacco non-user [facility] Work Phone: Start: 01-28-2024 End: 06-23-2024 Alcoholic beverage intake Ex-drinker (finding) [facility] Work Phone: Start: 01-14-2024 End: 01-28-2024 History of Social function [facility] Work Phone: Start: 2023 Alcohol Comment [facility] Work Phone: Start: 1997 Sex assigned at Not on file [facility] Work Phone: Start: 12-01-2023 End: 10-07-2024 Exposure to SARS-CoV-2 (event) Not sure [facility] Start: 02-23-2024 End: 12-19-2024 Alcoholic beverage intake Current drinker of alcohol (finding) [facility] Work Phone: Start: 03-05-2023 Alcohol Comment Beer 1-2 times per m [facility] Start: 12-18-2023 End: 12-28-2023 Exposure to SARS-CoV-2 (event) Unable to assess [facility] Start: 06-08-2024 [facility] r[facility] Medical Equipment Procedure Code Equipment Code Equipment Origin al Text Equipment Identifier Dates [id number] Start: 03-01-2024 End: 03-09-2024 Functional Status Date Assessment Result Facility 04-06-2024 Functional Status N/A [facility] 10-02-2023 Functional Status N/A [facility] 08-27-2023 Functional Status N/A [facility] 02-19-2023 Functional Status N/A [facility] Clinical Notes 07-24-2021 to 01-03-2025 Mariela Greer, RAEGAN - 01/03/2025 10:00 AM EDTwila Barbosa LPN - 12/19/2024 10:00 AM ORION Tarango - 12/06/2024 8:30 AM ORION Tarango - 11/08/2024 2:40 PM ORION Tarango - 10/11/2024 2:40 PM EDT Note Date & Type Note Facility 01-03-2025 History of Present illness Narrative Reason for Appointment: Patient ID: Sydney Romero is a 29 y.o. female who presents for Routine Visit [...] nursing note reviewed. Exam conducted with a blood bank laboratory professional present. Vitals: Estimated body mass index is 39.47 kg/m as calculated from the following: Height as of 09/17/22: 5' 3 . Weight as of this encounter: 222 lb 12.8 oz. BP: 118/74 No LMP recorded. Patient is . ASSESSMENT & PLAN ICD-10-CM 1. Third trimester ([facility]) Z34.93 POCT urinalysis dipstick manually resulted 2. 31 weeks gestation of ([facility]) Z3A.31 POCT urinalysis dipstick manually resulted Return OB: Patient presents today for a routine obstetrics appointment. Patient is currently 31w6d . Patient states she is doing well [...] week for routine OB appointment. Documented by Mariela Greer LPN on behalf of: Layo Courtney DO documented in this encounter [facility] 12-19-2024 History of Present illness Narrative Reason for Appointment: Patient ID: Sydney Romero is a 29 y.o. female who presents for Routine Visit [...] nursing note reviewed. Exam conducted with a blood bank laboratory professional present. Vitals: Estimated body mass index is 38.76 kg/m as calculated from the following: Height as of 09/17/22: 5' 3 . Weight as of this encounter: 218 lb 12.8 oz. BP: 116/70 No LMP recorded. Patient is . ASSESSMENT & PLAN ICD-10-CM 1. 29 weeks gestation of ([facility]) Z3A.29 POCT urinalysis dipstick manually resulted 2. Third trimester ([facility]) Z34.93 POCT urinalysis dipstick manually resulted 3. Leukocytes in urine R82.998 Urine culture CANCELED: Urine culture 4. Other microscopic hematuria R31.29 Urine culture CANCELED: Urine culture Patient presents today for a routine obstetrics appointment. Patient is currently 29w5d with a Estimated Date of Delivery: 03/01/25. Will send out patients urine for culture due to leukocysts and blood in urine sample today. Patient had growth scan this morning. Patient to return to clinic in 2 weeks. Documented by Niki Barbosa LPN on behalf of: Layo Courtney DO documented in this encounter [facility] 12-06-2024 History of Present illness Narrative Reason for [...] Vitals: Estimated body mass index is 38.09 kg/m as calculated from the following: Height as of 23: 5' 3 . Weight as of this encounter: 215 lb. BP: 100/70 No LMP recorded. Patient is . ASSESSMENT & PLAN ICD-10-CM 1. 27 weeks gestation of ([facility]) Z3A.27 POCT urinalysis dipstick manually resulted 2. Second trimester ([facility]) Z34.92 POCT urinalysis dipstick manually resulted Return [...] Layo Courtney DO documented in this encounter [facility] 11-08-2024 History of Present illness Narrative Reason [...] ASSESSMENT & PLAN ICD-10-CM 1. Second trimester ([facility]) Z34.92 POCT urinalysis dipstick manually resulted 2. 26 weeks gestation of ([facility]) Z3A.26 POCT urinalysis dipstick manually resulted 3. [...] Layo Courtney DO documented in this encounter [facility] 10-17-2024 History of Present illness Narrative Reason [...] nursing note reviewed. Exam conducted with a blood bank laboratory professional present. Vitals: Estimated body mass index is 35.52 kg/m as calculated from the following: Height as of 09/17/22: 5' 3 . Weight as of this encounter: 200 lb 8 oz. BP: 126/82 No LMP recorded. Patient is . ASSESSMENT & PLAN ICD-10-CM 1. Second trimester ([facility]) Z34.92 POCT urinalysis dipstick manually resulted 2. 20 weeks gestation of ([facility]) Z3A.20 Return OB: Patient presents today for [...] Layo Courtney DO documented in this encounter [facility] 10-11-2024 History of Present illness Narrative Reason [...] Layo Courtney DO documented in this encounter [facility] 09-06-2024 History of Present illness Narrative Reason [...] of: ORION Spence documented in this encounter [facility] 08-08-2024 History of Present illness Narrative Reason [...] nursing note reviewed. Exam conducted with a blood bank laboratory professional present. Vitals: Estimated body mass index is [...] Layo Courtney DO documented in this encounter [facility] 07-29-2024 History of Present illness Narrative Reason [...] screen, urine; Future Nurse Note: Patient declined [employer] to one Pt is an IVF [...] or undercooked meat, and stay away from [facility]. Patient has also been advised to [...] Marilia Elder MA documented in this encounter [facility] 07-11-2024 History of Present illness Narrative Visit [...] 07/11/2024 3:54 PM documented in this encounter [facility] Work Phone: 06-13-2024 History of Present [...] Preop diagnosis: Infertility Post op diagnosis: Same Radio Time Salesperson: none Depth: 7 cm Curve: anterior Distance [...] 06/13/24 11:24 AM documented in this encounter [facility] Work Phone: 06-13-2024 Hospital Discharge instructions Tisha Sparks RN - 06/13/2024 10:43 AM EST Images from the original note were not included. [facility] [address] [facility] [address] [place] [address] Home Going Instructions after Embryo Transfer: After [...] in : Advil, Motrin, Ibuprofen, Aleve, Excedrin, [place], Sudafed, and Pepto-Bismol. Avoid aspirin unless you [...] Sparks 10:43 AM documented in this encounter [facility] Work Phone: 06-06-2024 History of Present [...] until further instructed. Message sent to front loader residential driver to schedule at 8:45 slot at [place] for [place] and labs. ZOE FRANCIS on 06/06/24 at 1:12 PM. documented in this encounter [facility] Work Phone: 04-06-2024 Hospital Discharge instructions [...] provider. Document Revised: 09/09/2021 Document Reviewed: 09/09/2021 Psydex Patient Education 2023 [employer] Follow Up Care 03/25/2024 14:07:23 With:Mallory Judd Address: When:Within 6 Month(s) [facility] 03-22-2024 History of Present illness Narrative Associated Order(s): Egg Retrieval Pre-Procedure Diagnose(s): Encounter for assisted reproductive fertility cycle Post-Procedure Diagnose(s): Encounter for assisted reproductive fertility cycle Patient ID: Sydney Romero is a 28 y.o. female. Egg Retrieval Date/Time: 03/22/2024 9:39 AM Performed by: Juan Chavarria MD Authorized by: Donya Abernathy APRN-[employer] BROKER Consent: Consent obtained: Verbal and written Consent [...] diagnosis: Female infertility Post op diagnosis: Same Radio Time Salesperson: Dr. Warren IV Fluids: 600 cc EBL: 5 cc UOP: Not recorded Specimen: Oocytes Complications: None Number of Oocytes right ovary: 16 Ovarian access (right): Easy Number of Oocytes left ovary: 9 Ovarian access (left): Easy Endometrial thickness: n/a Needle type: Single Additional notes: documented in this encounter [facility] Work Phone: 03-22-2024 Nurse Note Patient discharged to home in stable condition via wheelchair to RIDE HOME: Partner's car. Accompanied by RN. VSS at time of discharge. Discharge instructions given and concerns addressed. Gisell Michel RN 03/22/24 11:08 AM [facility] Work Phone: 03-22-2024 Nurse Note Patient discharged to home in stable condition via wheelchair to RIDE HOME: Partner's car. Accompanied by RN. MOIS at time of discharge. Discharge instructions given and concerns addressed. Gisell Michle RN 03/22/24 11:08 AM documented in this encounter [facility] Work Phone: 03-22-2024 Hospital Discharge instructions Gisell Michel RN - 03/22/2024 8:45 AM EST Images from the original note were not included. [facility] [address] [place] [id number] Home Going Instructions after Egg Retrieval: Activity: [...] 2 weeks following your oocyte retrieval. Call [phone] to speak with a Physician or Nurse if you have any concerns. Gisell Michel 8:45 AM [facility] [address] [place], [place] IVF LAB EMBRYO UPDATE PROTOCOL The [...] biopsied and frozen. Gisell Michel 8:44 AM [facility] [address] [place] [address] Frozen Embryo Transfer Instructions After your egg retrieval, follow up with your IVF nurse within 3-4 days Thursday-Thursday regarding the plan for your frozen embryo transfer (FET) cycle. Your IVF nurse will order and review with you the medications you will be using for the cycle. You will be sent an email from [facility] to fill out your Frozen Embryo Treatment [...] RN 8:44 AM documented in this encounter [facility] Work Phone: 03-20-2024 History of Present [...] Arrive 60 minutes prior to procedure at [facility]. Patient verbalizes understanding of plan and location of procedure. Patient scheduled to go to [facility] tomorrow for post trigger labs Krissy Yanes 03/20/2024 11:01 AM documented in this encounter [facility] Work Phone: 03-19-2024 History of Present [...] 03/19/24 11:02 AM documented in this encounter [facility] Work Phone: 03-17-2024 History of Present [...] 03/17/24 1:04 PM documented in this encounter [facility] Work Phone: 03-15-2024 History of Present [...] no further questions. Transferred to the front loader residential driver to schedule appt for 03/17. Allyssa Robles 03/15/24 1:27 PM documented in this encounter [facility] Work Phone: 03-09-2024 History of Present [...] Yes; PGT-M Test Ready: No ; Company: [employer] PGT order scanned into [employer], confirmed by: LORI on Plan to freeze: [...] on 03/09 by delano On site at [facility] Additional details: Allyssa Robles 03/09/2024 7:50 AM TC to pt to confirm today's plan; LM; will send MC message. Allyssa Robles 03/09/24 2:02 PM Pt called back to confirm plan; Pt has all meds and all questions answered. She plans to purchase FET meds before the end of the year (they were ordered back in February) and will call [facility] to have them filled as she has met deductible and REECE needs a PA. Allyssa Robles 03/09/24 2:33 PM documented in this encounter [facility] Work Phone: 02-23-2024 Nurse Note Patient discharged to home in stable condition via wheelchair accompanied by this RN to RIDE HOME: Partner's car. Discharge instructions given and concerns addressed. Patient verbalizes understanding of all information provided and is agreeable. [facility] 02-23-2024 Nurse Note Patient discharged to home in stable condition via wheelchair accompanied by this RN to RIDE HOME: Partner's car. Discharge instructions given and concerns addressed. Patient verbalizes understanding of all information provided and is agreeable. Patient up to bathroom independently, no complaints of pain or dizziness, able to void without issue, reports scant amount of bleeding. documented in this encounter [facility] Work Phone: 02-23-2024 Nurse Note Patient up to bathroom independently, no complaints of pain or dizziness, able to void without issue, reports scant amount of bleeding. [facility] Work Phone: 02-23-2024 History of Present [...] diagnosis: Female infertility Post op diagnosis: Same Radio Time Salesperson: none IV Fluids: 500 cc EBL: 5 cc UOP: Not recorded Specimen: Oocytes Complications: None Number of Oocytes right ovary: 17 Ovarian acc ss (right): Easy Number of Oocytes left ovary: 13 Ovarian access (left): Easy Endometrial thickness: n/a Needle type: Single Additional notes: documented in this encounter [facility] Work Phone: 02-23-2024 Hospital Discharge instructions Donya Rosas RN - 02/23/2024 7:23 AM EDT Images from the original note were not included. [facility] [address] [place] [id number] Home Going Instructions after Egg Retrieval: Activity: [...] 2 weeks following your oocyte retrieval. Call [phone] to speak with a Physician or Nurse if you have any concerns. DONYA ROSAS 7:23 AM [facility] [address] [place], [place] IVF LAB EMBRYO UPDATE PROTOCOL The [...] biopsied and frozen. DONYA ROSAS 7:23 AM [facility] [address] [place], [place] IVF LAB EMBRYO UPDATE PROTOCOL The [...] biopsied and frozen. DONYA ROSAS 7:23 AM [facility] [address] [facility] [place] [address] Frozen Embryo Transfer Instructions After your egg retrieval, follow up with your IVF nurse within 3-4 days Thursday-Thursday regarding the plan for your frozen embryo transfer (FET) cycle. Your IVF nurse will order and review with you the medications you will be using for the cycle. You will be sent an email from [facility] to fill out your Frozen Embryo Treatment [...] RN 7:32 AM documented in this encounter [facility] Work Phone: 02-21-2024 History of Present [...] 02/21/2024 9:09 AM documented in this encounter [facility] Work Phone: 02-20-2024 History of Present [...] Beth Judge RN documented in this encounter [facility] Work Phone: 02-18-2024 History of Present [...] Beth Judge RN documented in this encounter [facility] Work Phone: 02-16-2024 History of Present [...] Will look into getting insulin syringes from [facility]. Team will contact patient later today with results and plan. Krissy Yanes 02/16/2024 7:27 AM LM with patient with plan to start Cetrotide today, drop FSH to 225 units and continue Menopur 75 units. Patient is already scheduled for 02/17 for repeat follicle scan and e2. Krissy Yanes 02/16/24 1:34 PM documented in this encounter [facility] Work Phone: 02-09-2024 History of Present [...] Yes; PGT-M Test Ready: No /A; Company: [employer] PGT order scanned into [employer], confirmed by: LORI on 02/09/2024 Plan to freeze: embryos [employer] forms/out waiver complete: Yes Does patient have medications onhand? Yes Pharmacy: [facility] pass signed off: Yes LORETTA on 02/05/2024 Date of Female STDs: 2023 Date of Male STDs: 2023 Medically complex on boarding pass: no If indicated, is PAT consult complete? N/A SPERM: partner Fresh with Frozen Backup Number of vials confirmed: 1 on 02/09/24 by LORETTA Additional details: Allyssa Robles 02/09/2024 7:34 AM Beti Warren 02/09/24 12:44 PM TC to pt - Zane answered; confirmed plan for meds to start on 02/12 as per calendar and return on 02/15 as scheduled; no further questions. Allyssa Robles 02/09/24 1:16 PM documented in this encounter [facility] Work Phone: 01-28-2024 Nurse Note Patient discharged to home in stable condition via wheelchair to RIDE HOME: Partner's car. Discharge instructions given and concerns addressed. [facility] Work Phone: 01-28-2024 Nurse Note Patient discharged to home in stable condition via wheelchair to RIDE HOME: Partner's car. Discharge instructions given and concerns addressed. documented in this encounter [facility] Work Phone: 01-28-2024 History of Present [...] no immediate complications documented in this encounter [facility] Work Phone: 01-28-2024 Hospital Discharge instructions Ira Lopez RN - 01/28/2024 8:20 AM EDT Images from the original note were not included. [facility] [address] [place] [address] Home Going Instructions after Polypectomy: Activity: We [...] Lopez 8:20 AM documented in this encounter [facility] Work Phone: 01-14-2024 History of Present [...] nursing note reviewed. Exam conducted with a blood bank laboratory professional present. Vitals: Estimated body mass index is [...] of: ORION Spence documented in this encounter [facility] 12-28-2023 History of Present illness Narrative Visit [...] EVALUATION / TREATMENT Saw KELSY physician in [facility] Dr. Vergara Was told needed IVF, oligospermia Hysterosalpingogram: 2023, bilateral tubal patency Saline Infused Sonography: 07/2023, normal uterine cavity small uterine polyp noted (not removed as of yet) COOPERATIVE EDUCATION COORDINATOR Pelvic Ultrasound: 07/2023 AMH 2.01 Relationship Status: x 2 years OB Hx G0 OB History 0 Para 0 Term 0 0 AB 0 Living 0 SAB 0 IAB 0 Ectopic 0 Multiple 0 Live Births 0 COOPERATIVE EDUCATION COORDINATOR HISTORY History of STD or PID: No [...] Update: PLAN PENDING follow up with Dr. Hyatt ADPKD follow up testing, recommendations from genetics [...] 12/28/2023 10:39 AM documented in this encounter [facility] Work Phone: 2023 History of Present illness Narrative Visit Type: In Person NEW FERTILITY PATIENT VISIT Referred by: insurance referral Accompanied today by: spouse Sydney Romero is a 27 y.o. female who presents with Infertility TTC x 2 years PRIOR EVALUATION / TREATMENT Saw [facility] physician in [facility] Dr. Vergara Was told needed IVF, oligospermia Hysterosalpingogram: 2023, bilateral tubal patency Saline Infused Sonography: 07/2023, normal uterine cavity small uterine polyp noted (not removed as of yet) COOPERATIVE EDUCATION COORDINATOR Pelvic Ultrasound: 07/2023 AMH 2.01 Prior Labs [...] Ectopic 0 Multiple 0 Live Births 0 COOPERATIVE EDUCATION COORDINATOR HISTORY History of STD or PID: No [...] mg daily Recommend Consult with Dr. Meyer [phone] Recommend repeat SA with 48-72 hours abstinence [...] BMI < 18 or > 40: No DEANNE DESAI Completion: Ectopic Risk: No Medically Complex: No Trish Thorpe 2023 8:52 AM documented in this encounter [facility] Work Phone: 2023 Instructions SMITH Mina - 2023 8:45 AM EDT Recommend Male Vitamins Discussed as follows: Co-Q10 200 mg daily L-Carnitine 200-500 mg daily Vitamin C 500 mg daily Recommend Consult with Dr. Meyer [phone] Recommend repeat SA with 48-72 hours abstinence Recommend Female Vitamins: vitamin Vitamin D (total of 2,000 international units daily) CoQ10 600 mg daily documented in this encounter [facility] Work Phone: 10-02-2023 Hospital Discharge instructions [...] ?Hypothyroidism. ?Polycystic ovarian syndrome (PCOS). ?Binge-eating disorder. ?Anabel syndrome. Taking certain medicines, such as steroids, [...] food choices, such as grocery stores and [employer]. What are the signs or symptoms? The [...] and how much exercise you get. Take skvw-yqe-fsrbpcy and prescription medicines only as told by [...] provider. Document Revised: 11/26/2021 Document Reviewed: 11/26/2021 Psydex Patient Education 2022 [employer]. 10/02/2023 12:54:15 BMI for Adults BMI for [...] numbers. This can be done either in [place]ian ([place] or metric measurements. Note that charts and online BMI calculators are available to help you find your BMI quickly and easily without having to do these calculations yourself. To calculate your BMI in [place]ian ([place] measurements: 1.Measure your weight in pounds [...] Centers for Disease Control and Prevention: www.cdc.gov [place] Heart Association: www.heart.org National Heart, Lung, and Blood [place]: www.nhlbi.nih.gov Summary Body mass index (BMI) is a number that is calculated from a person's weight and height. BMI may help estimate how much of a person's weight is composed of fat. BMI can help identify those who may be at higher risk for certain medical problems. BMI can be measured using Lithuanian measurements or metric measurements. BMI charts are used to identify whether you are underweight, normal weight, overweight, or obese. This information is not intended to replace advice given to you by your health care provider. Make sure you discuss any questions you have with your health care provider. Document Revised: 01/11/2020 Document Reviewed: 11/18/2019 Psydex Patient Education 2022 [employer]. 10/02/2023 12:54:13 Migraine Headache Migraine Headache A [...] Follow these instructions at home: Medicines Take lifp-fcc-rrpdiqa and prescription medicines only as told by your health care provider. Ask your health care provider if the medicine prescribed to you: ?Requires you to avoid driving or using heavy machinery. ?Can cause constipation. You may need to take these actions to prevent or treat constipation: ?Drink enough fluid to keep your urine pale yellow. ?Take vpgi-dmq-vqbtetd or prescription medicines. ?Eat foods that are [...] provider. Document Revised: 08/12/2019 Document Reviewed: 06/02/2019 Psydex Patient Education 2022 [employer]. 10/02/2023 12:54:11 Form - Headache Record Form [...] 09/18/2021 Document Reviewed: 09/18/2021 Elsevier Patient Education 3 Nam Hernandez 10/02/2023 12:54:08 Eczema Eczema Eczema refers to [...] these instructions at home: Take or apply flrx-tfi-roulnbi and prescription medicines only as told by your health care provider. Use creams or ointments to moisturize your skin. Do not use lotions. Learn what triggers or irritates your symptoms so you can avoid these things. Treat symptom flare-ups quickly. Do not scratch your skin. This can make your rash worse. Keep all follow-up visits. This is important. Where to find more information [place] Academy of Dermatology: aad.org National Eczema Association: [...] provider. Document Revised: 01/28/2021 Document Reviewed: 01/28/2021 Psydex Patient Education 2022 [employer]. 10/02/2023 12:54:06 BMI for Adults BMI for [...] numbers. This can be done either in [place]ian ([place] or metric measurements. Note that charts and online BMI calculators are available to help you find your BMI quickly and easily without having to do these calculations yourself. To calculate your BMI in [place]ian ([place] measurements: 1.Measure your weight in pounds [...] Centers for Disease Control and Prevention: www.cdc.gov [place] Heart Association: www.heart.org National Heart, Lung, and Blood [place]: www.nhlbi.nih.gov Summary Body mass index (BMI) is a number that is calculated from a person's weight and height. BMI may help estimate how much of a person's weight is composed of fat. BMI can help identify those who may be at higher risk for certain medical problems. BMI can be measured using Lithuanian measurements or metric measurements. BMI charts are used to identify whether you are underweight, normal weight, overweight, or obese. This information is not intended to replace advice given to you by your health care provider. Make sure you discuss any questions you have with your health care provider. Document Revised: 01/11/2020 Document Reviewed: 11/18/2019 [employer] Patient Education 2022 [employer]. Follow Up Care 09/22/2023 13:18:17 With:Princess Dumont FAM, MED Address: Deborah Schrader, [address] [address]- Business (1) When:07/08/2023 Comments:for f/u [facility] 08-27-2023 Hospital Discharge instructions [...] 1.Identify the foods that contain carbohydrates: Rice. Thelma. Milk. Strawberries. 2.Calculate how many servings you [...] and snacks. Where to find more information [place] Diabetes Association: diabetes.org Centers for Disease Control [...] provider. Document Revised: 11/21/2020 Document Reviewed: 11/21/2020 Psydex Patient Education 2022 [employer]. 08/27/2023 19:11:56 Calorie Counting for Weight [...] provider. Document Revised: 05/31/2020 Document Reviewed: 05/31/2020 Psydex Patient Education 2022 [employer]. 08/27/2023 19:11:54 Exercising to Lose Weight Exercising [...] your health care provider or diet and nutrition services manager (dietitian). This may include: ?Eating fewer calories. [...] right away. Call your local emergency services (421 in the [place] Do not drive yourself [...] provider. Document Revised: 06/16/2021 Document Reviewed: 06/16/2021 Psydex Patient Education 2022 [employer]. 08/27/2023 19:11:53 BMI for Adults BMI for [...] numbers. This can be done either in [place]ian ([place] or metric measurements. Note that charts and online BMI calculators are available to help you find your BMI quickly and easily without having to do these calculations yourself. To calculate your BMI in [place]ian ([place] measurements: 1.Measure your weight in pounds [...] Centers for Disease Control and Prevention: www.cdc.gov [place] Heart Association: www.heart.org National Heart, Lung, and Blood [place]: www.nhlbi.nih.gov Summary Body mass index (BMI) is a number that is calculated from a person's weight and height. BMI may help estimate how much of a person's weight is composed of fat. BMI can help identify those who may be at higher risk for certain medical problems. BMI can be measured using Lithuanian measurements or metric measurements. BMI charts are used to identify whether you are underweight, normal weight, overweight, or obese. This information is not intended to replace advice given to you by your health care provider. Make sure you discuss any questions you have with your health care provider. Document Revised: 01/11/2020 Document Reviewed: 11/18/2019 Psydex Patient Education 2022 [employer]. 08/27/2023 19:11:48 Musculoskeletal Pain Musculoskeletal Pain Musculoskeletal [...] mouth or applied to the skin. Take yiid-mkk-feogfvh and prescription medicines only as told by [...] provider. Document Revised: 08/23/2020 Document Reviewed: 08/01/2020 Psydex Patient Education 2022 [employer]. 08/27/2023 19:05:09 Cervicogenic Headache Cervicogenic Headache In [...] includes your primary health care provider, a apprentice painter brush, a neurologist, and a physical therapist. Follow these instructions at home: Take qyok-dxu-khwtokd and prescription medicines only as told by [...] includes your primary health care provider, a apprentice painter brush, a neurologist, and a physical therapist. This information is not intended to replace advice given to you by your health care provider. Make sure you discuss any questions you have with your health care provider. Document Revised: 10/24/2021 Document Reviewed: 10/24/2021 Psydex Patient Education 2022 [employer] Inc. 08/27/2023 19:05:07 Form - Headache Record [...] Follow these instructions at home: Medicines Take gbmg-juh-zowqjol and prescription medicines only as told by [...] for Headache and Migraine Patients (CHAMP): headachemigraine.org [place] Migraine Foundation: americanmigrainefoundation.org National Headache Foundation: headaches.org [...] provider. Document Revised: 06/06/2020 Document Reviewed: 06/06/2020 Ps[employer]dex Patient Education 2022 [employer]. 08/27/2023 19:05:03 BMI for Adults BMI for [...] numbers. This can be done either in [place]ian ([place] or metric measurements. Note that charts and online BMI calculators are available to help you find your BMI quickly and easily without having to do these calculations yourself. To calculate your BMI in [place]ian ([place].S.) measurements: 1.Measure your weight in pounds [...] Centers for Disease Control and Prevention: www.cdc.gov [place] Heart Association: www.heart.org National Heart, Lung, and Blood [place]: www.nhlbi.nih.gov Summary Body mass index (BMI) is a number that is calculated from a person's weight and height. BMI may help estimate how much of a person's weight is composed of fat. BMI can help identify those who may be at higher risk for certain medical problems. BMI can be measured using Lithuanian measurements or metric measurements. BMI charts are used to identify whether you are underweight, normal weight, overweight, or obese. This information is not intended to replace advice given to you by your health care provider. Make sure you discuss any questions you have with your health care provider. Document Revised: 01/11/2020 Document Reviewed: 11/18/2019 Psydex Patient Education 2022 [employer]. 08/27/2023 19:05:01 Health Maintenance, Female Health Maintenance, [...] provider. Document Revised: 09/09/2021 Document Reviewed: 09/09/2021 Psydex Patient Education 2022 [employer]. Follow Up Care 08/17/2023 08:42:02 With:Princess Dumont FAM, MED Address: Deborah Schrader, [facility] [address] [address] When:Within 6 Week(s) Comments:weight loss and headaches [facility] 02-19-2023 Evaluation + Plan note Future Scheduled TestsU Protein/Creat Ratio 02/19/23HgbA1c 02/19/23Microalbumin Level Urine 02/19/23TSH With T4fr Reflex 02/19/23Vitamin D 25 Hydroxy 02/19/23CBC w/ Auto Diff 02/19/23Comprehensive Metabolic Panel 02/19/23Lipid Panel 02/19/23XR Spine Cervical 4 or 5 Views 02/19/23 [facility] 02-19-2023 Hospital Discharge instructions [...] includes your primary health care provider, a apprentice painter brush, a neurologist, and a physical therapist. Follow these instructions at home: Take uixh-beo-znenlec and prescription medicines only as told by [...] includes your primary health care provider, a apprentice painter brush, a neurologist, and a physical therapist. This information is not intended to replace advice given to you by your health care provider. Make sure you discuss any questions you have with your health care provider. Document Revised: 10/24/2021 Document Reviewed: 10/24/2021 Psydex Patient Education 2022 [employer]. 02/19/2023 08:34:09 Migraine Headache Migraine Headache A [...] Follow these instructions at home: Medicines Take iuja-ffz-vlanlpl and prescription medicines only as told by your health care provider. Ask your health care provider if the medicine prescribed to you: ?Requires you to avoid driving or using heavy machinery. ?Can cause constipation. You may need to take these actions to prevent or treat constipation: ?Drink enough fluid to keep your urine pale yellow. ?Take ijxn-uca-ncnyoji or prescription medicines. ?Eat foods that are [...] Document Reviewed: 06/02/2019 Elsevier Patient Education 2022 [employer] 02/19/2023 08:34:03 Form - Headache Record [...] provider. Document Revised: 09/18/2021 Document Reviewed: 09/18/2021 Psydex Patient Education 2022 [employer]. 02/19/2023 01:02:45 General Headache Without Cause [...] help with your condition: Managing pain Take nmrp-yqk-vbhxbiu and prescription medicines only as told by [...] provider. Document Revised: 09/18/2021 Document Reviewed: 09/18/2021 Psydex Patient Education 2022 [employer]. 02/19/2023 01:02:42 Form - Headache Record [...] provider. Document Revised: 09/18/2021 Document Reviewed: 09/18/2021 Psydex Patient Education 2022 [employer]. 02/19/2023 01:02:37 Cervicogenic Headache Cervicogenic Headache In [...] includes your primary health care provider, a apprentice painter brush, a neurologist, and a physical therapist. Follow these instructions at home: Take zelw-nra-krscfte and prescription medicines only as told by [...] includes your primary health care provider, a apprentice painter brush, a neurologist, and a physical therapist. This information is not intended to replace advice given to you by your health care provider. Make sure you discuss any questions you have with your health care provider. Document Revised: 10/24/2021 Document Reviewed: 10/24/2021 Psydex Patient Education 2022 [employer]. 02/19/2023 01:02:35 Chronic Migraine Headache Chronic Migraine [...] Follow these instructions at home: Medicines Take mpwi-ztt-bgvicwj and prescription medicines only as told by [...] for Headache and Migraine Patients (CHAMP): headachemigraine.org [place] Migraine Foundation: americanmigrainefoundation.org National Headache Foundation: headaches.org [...] provider. Document Revised: 06/06/2020 Document Reviewed: 06/06/2020 Psydex Patient Education 2022 [employer]. Follow Up Care 02/17/2023 08:10:14 With:Princess Dumont FAM, [employer] Address: [address] [place] [phone]- When:Within 1 Month(s) Comments:headaches. neck pain With:Princess Dumont FAM, MED Address: [address] [place] [address]- When:Within 1 Year(s) Comments:annual wellness, anxiety/ depression [facility] 07-24-2021 Hospital Discharge instructions [...] height. This can be done either in Lithuanian ([place] or metric measurements. Note that charts are available to help you find your BMI quickly and easily without having to do these calculations yourself. To calculate your BMI in Lithuanian ([place] measurements, your health care provider will: [...] medical problems. BMI can be measured using Lithuanian measurements or metric measurements. To interpret your [...] 12/30/2004 Document Revised: 04/02/2018 Document Reviewed: 03/03/2018 Psydex Patient Education 2020 [employer]. 07/24/2021 17:16:58 Health Maintenance, Female Health Maintenance, [...] 11/03/2011 Document Revised: 04/13/2019 Document Reviewed: 04/13/2019 Psydex Patient Education 2020 [employer]. Follow Up Care 06/26/2021 18:00:45 With:Leigh Ann Covington CNP Address: When: only if needed [facility] Evaluation + Plan note Future Appointments Appointment Date:10/03/2021 01:00:00 PM Scheduled Provider:Naya ABDI Location:[facility] [place] Appointment Type:[facility] Evaluation + Plan note Future Appointments Appointment Date:03/25/2023 07:00:00 AM Scheduled Provider:Princess Dumont Location:[facility] Appointment Type: Open Future Scheduled TestsU Protein/Creat Ratio 02/19/23HgbA1c 02/19/23Microalbumin Level Urine 02/19/23TSH With T4fr Reflex 02/19/23Vitamin D 25 Hydroxy 02/19/23CBC w/ Auto Diff 02/19/23Comprehensive Metabolic Panel 02/19/23Lipid Panel 02/19/23XR Spine Cervical 4 or 5 Views 02/19/23 [facility] Evaluation + Plan note Future Appointments Appointment Date:10/21/2023 07:20:00 AM Scheduled Provider:Princess Dumont Location:[facility] Appointment Type: Open Future Scheduled TestsTSH With T4fr Reflex 02/19/23Vitamin D 25 Hydroxy 02/19/23CBC w/ Auto Diff 02/19/23Comprehensive Metabolic Panel 02/19/23Lipid Panel 02/19/23XR Spine Cervical 4 or 5 Views 02/19/23 [facility] Evaluation + Plan note Future Appointments Appointment Date:10/05/2024 07:00:00 AM Scheduled Provider:Mallory Judd Location:[facility] Appointment Type: Open [facility] Evaluation note Diagnosis Endometrial polyp Polyp of corpus uteri documented in this encounter [facility] Work Phone: Evaluation note* Diagnosis Pre-procedure lab exam Pre-procedural laboratory examination Female infertility Female infertility of unspecified origin documented in this encounter [facility] Work Phone: Evaluation note* Diagnosis Female infertility Female infertility of unspecified origin documented in this encounter [facility] Work Phone: Evaluation note* Diagnosis Female infertility Female infertility of unspecified origin documented in this encounter [facility] Work Phone: [phone] note* Diagnosis Encounter for assisted reproductive fertility cycle Encounter for assisted reproductive fertility procedure cycle documented in this encounter [facility] Work Phone: [phone] note* Diagnosis Female infertility Female infertility of unspecified origin Pre-procedure lab exam Pre-procedural laboratory examination documented in this encounter [facility] Work Phone: [phone] note* Diagnosis Female infertility Female infertility of unspecified origin documented in this encounter [facility] Work Phone: [phone] note* Diagnosis Female infertility Female infertility of unspecified origin documented in this encounter [facility] Work Phone: [phone] note* Diagnosis Female infertility Female infertility of unspecified origin documented in this encounter [facility] Work Phone: [phone] note* Diagnosis Encounter for assisted reproductive fertility cycle Encounter for assisted reproductive fertility procedure cycle documented in this encounter [facility] Work Phone: [phone] note* Diagnosis Encounter for assisted reproductive fertility cycle Encounter for assisted reproductive fertility procedure cycle documented in this encounter [facility] Work Phone: [phone] note* Diagnosis Well woman exam with routine gynecological exam Routine gynecological examination documented in this encounter [facility]* Diagnosis Encounter for screening for other viral diseases- Primary Encounter for Rh blood typing Encounter for blood typing Screening for STDs (sexually transmitted diseases) Screening examination for venereal disease Genetic screening Other genetic screening Fertility testing Female infertility associated with male factors Female infertility of other specified origin documented in this encounter [facility] Work Phone: [phone] note* Diagnosis Fertility testing [Z31.41]- Primary Fertility testing 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 [Z31.81, N97.8] documented in this encounter [facility] Work Phone: [phone] note* Diagnosis Endometrial polyp Polyp of corpus uteri documented in this encounter [facility] Work Phone: [phone] note* Diagnosis Female infertility Female infertility of unspecified origin documented in this encounter [facility] Work Phone: Evaluation note* Diagnosis Encounter for assisted reproductive fertility cycle Encounter for assisted reproductive fertility procedure cycle documented in this encounter [facility] Work Phone: Evaluation note* Diagnosis Encounter for assisted reproductive fertility cycle Encounter for assisted reproductive fertility procedure cycle Encounter for test, result unknown documented in this encounter [facility] Work Phone: Evaluation note* Diagnosis Encounter to determine viability of , single or unspecified fetus documented in this encounter [facility] Work Phone: Evaluation note* Diagnosis Missed menses 9 weeks gestation of , unspecified gestational age Encounter for supervision of normal first in first trimester [facility] Diagnosis 10 weeks gestation of First trimester state, incidental [facility]* Diagnosis STD exposure Second trimester state, incidental 14 weeks gestation of Screening, , for anatomic survey Encounter for anatomic survey [facility]* Diagnosis (HHS-HCC) documented in this encounter [facility] Work Phone: Evaluation note* Diagnosis Second trimester state, incidental 19 weeks gestation of Pruritus Unspecified pruritic disorder [facility]* Diagnosis Acute bilateral low back pain without sciatica- Primary Second trimester (HHS-HCC) state, incidental 20 weeks gestation of (HHS-HCC) [facility]* Diagnosis Second trimester (HHS-HCC) state, incidental 26 weeks gestation of (HHS-HCC) Diabetes mellitus screening Screening for diabetes mellitus [facility]* Diagnosis 27 weeks gestation of (HHS-HCC) Second trimester (HHS-HCC) state, incidental [facility]* Diagnosis 29 weeks gestation of (HHS-HCC) Third trimester (HHS-HCC) state, incidental Leukocytes in urine Other nonspecific finding on examination of urine Other microscopic hematuria [facility]* Diagnosis Third trimester (HHS-HCC) state, incidental 31 weeks gestation of (HHS-HCC) resulting from in vitro fertilization in third trimester ([facility]) [facility] Narrative No data available for this section [facility] Hospital Discharge instructions No data available for this section [facility] Progress note No data available for this section [facility] Reason for referral (narrative)* Consultation (Routine) - Authorized Specialty Diagnoses / Procedures Referred By Alejandro hyatt Referred To Contact Genetics Diagnoses Genetic screening Trish Thorpe APRN-LASHELL [address] [place] [address] Referral ID Status Reason Start Date Expiration Date Visits Requested Visits Authorized [id number] Authorized Specialty Services Required 2023 12/10/2024 1 1 [facility] Work Phone: Resyaw for visit Narrative* Imaging (Routine) - Authorized Specialty Diagnoses / Procedures Referred By Alejandro hyatt Referred To Contact Radiology Diagnoses Female infertility Procedures KELSY US Pelvis Limited Follicles - Follicle Studies Performed America Quintanilla APRN-LIVESTOCK BROKER [address] [place] [address] Phone: tel: fax: Referral ID Status Reason Start Date Expiration Date Visits Requested Visits Authorized [id number] Authorized Perform Procedure 02/02/2024 02/01/2025 8 8 [facility] Work Phone: Rehclm for visit Narrative* Imaging (Routine) - Pending Review Specialty Diagnoses / Procedures Referred By Alejandro hyatt Referred To Contact Radiology Diagnoses Female infertility Procedures KELSY US Pelvis Limited Follicles - Follicle Studies Performed America Quintanilla APRN-LIVESTOCK BROKER [address] [place] [address] Phone: tel: fax: Referral ID Status Reason Start Date Expiration Date Visits Requested Visits Authorized [id number] Pending Review Perform Procedure 02/02/2024 02/01/2025 8 8 [facility] Work Phone: Retirl for visit Narrative* Procedure (Routine) - Authorized Specialty Diagnoses / Procedures Referred By Contac t Referred To Contact Reproductive Endocrinology and Infertility Diagnoses Encounter for assisted reproductive fertility cycle Procedures Egg Retrieval [place] FOLLICLE PUNCTURE OOCYTE RETRIEVAL ANY METHOD CHG US GUIDANCE ASPIRATION OVA IMG S&I CHG OOCYTE ID FROM FOLLICULAR FLU CHG BX OOCYTE POLR BDY/AMBER BLST MICROTQ <= 5 AMBER CHG BX OOCYTE MICROTQ >5 AMBER CHG UNLISTED MOLECULAR PATHOLOGY PROCEDURE CHG CYTOGENETICS&MOLEC CYTOGENETICS INTERP&REP Beth Warren MD [address] [place] [address] Phone: tel: fax: Referral ID Status Reason Start Date Expiration Date V isits Requested Visits Authorized [id number] Authorized 01/27/2024 01/26/2025 1 1 [facility] Work Phone: reason for visit Narrative* Imaging (Routine) - Authorized Specialty Diagnoses / Procedures Referred By Contac t Referred To Contact Radiology Diagnoses Female infertility Procedures KELSY US Pelvis Limited Follicles - Follicle Studies Performed Donya Abernathy APRN-LASHELL [address] [facility], [address], [place] [address] Phone: tel: fax: Referral ID Status Reason Start Date Expiration Date Visits Requested Visits Authorized [id number] Authorized Perform Procedure 03/01/2025 8 8 [facility] Work Phone: reason for visit Narrative* Procedure (Routine) - Authorized Specialty Diagnoses / Procedures Referred By Contac t Referred To Contact Reproductive Endocrinology and Infertility Diagnoses Encounter for assisted reproductive fertility cycle Procedures Egg Retrieval NY FOLLICLE PUNCTURE OOCYTE RETRIEVAL ANY METHOD CHG US GUIDANCE ASPIRATION OVA IMG S&I CHG OOCYTE ID FROM FOLLICULAR FLU CHG BX OOCYTE POLR BDY/AMBER BLST MICROTQ <= 5 AMBER CHG BX OOCYTE MICROTQ >5 AMBER CHG UNLISTED MOLECULAR PATHOLOGY PROCEDURE CHG CYTOGENETICS&MOLEC CYTOGENETICS INTERP&REP Donya Abernatyh, TEAROOM HOSTESS-LIVESTOCK BROKER [address] [facility], [address], [place] [address] Phone: tel: fax: Referral ID Status Reason Start Date Expiration Date V isits Requested Visits Authorized [id number] Authorized 03/01/2024 03/01/2025 1 0 [facility] Work Phone: Rehdac for visit Narrative* Imaging (Routine) - Authorized Specialty Diagnoses / Procedures Referred By Alejandro t Referred To Contact Radiology Diagnoses Female infertility Procedures KELSY US Endometrial Lining Check Donya Abernathy, TEAROOM HOSTESS-LIVESTOCK BROKER [address] [facility], [address], [place] [address] Phone: tel: fax: Referral ID Status Reason Start Date Expiration Date Visits Requested Visits Authorized [id number] Authorized Perform Procedure 02/23/2025 5 5 [facility] Work Phone: reason for visit Narrative* Procedure (Routine) - Authorized Specialty Diagnoses / Procedures Referred By Alejandro t Referred To Contact Reproductive Endocrinology and Infertility Diagnoses Encounter for assisted reproductive fertility cycle Procedures Embryo Transfer NY EMBRYO TRANSFER INTRAUTERINE CHG ULTRASONIC GUIDANCE INTRAOPERATIVE CHG THAWING CRYOPRESERVED EMBRYO CHG ASSTD EMBRYO HATCHING MICROTQS ANY METH CHG PREPJ EMBRYO TR Juan Chavarria MD [address] [facility] [address] [place], [place] [address] Phone: tel: fax: Referral ID Status Reason Start Date Expiration Date V isits Requested Visits Authorized [id number] Authorized 06/10/2024 06/10/2025 1 1 [facility] Work Phone: reason for visit Narrative* Imaging (Routine) - Authorized Specialty Diagnoses / Procedures Referred By Alejandro t Referred To Contact Radiology Diagnoses ([facility]) Procedures US OB detail anatomy aLyo Courtney, DO [address] [facility] [address], [place] [address] Phone: tel: fax: Referral ID Status Reason Start Date Expiration Date Visits Requested Visits Authorized [id number] Authorized Perform Procedure 08/15/2024 08/15/2025 1 1 [facility] Work Phone: Summary Purpose Family History [...] polyp Procedures Polypectomy Juan Chavarria MD [address] [facility] [address], [facility] [address] [place] [address] [address] [place] [address] Referral ID Status Reason Start Date Expiration Date V isits Requested Visits Authorized [id number] Authorized 01/25/2024 01/24/2025 1 1 Additional Source Comments INFORMATION SOURCE (unrecogn ized section and content) DATE CREATED AUTHOR 08/01/2022 [facility] DATE CREATED AUTHOR AUTHOR'S ORGANIZ ATION 04/04/2024 [facility] DATE CREATED AUTHOR AUTHOR'S ORGANIZ ATION 06/15/2024 [facility] DATE CREATED AUTHOR AUTHOR'S ORGANIZ ATION 07/02/2024 [facility] DATE CREATED AUTHOR AUTHOR'S ORGANIZ ATION 07/14/2024 [facility] DATE CREATED AUTHOR AUTHOR'S ORGANIZ ATION 10/11/2024 [facility] DATE CREATED AUTHOR AUTHOR'S ORGANIZ ATION 01/03/2025 [facility] Special[facility] EPIC Patient Care team informatio n (unrecognized section and content) Automatic Machine Attendant Relationship Specialty Start Date End Date Robles, Allyssa, RN Registered Nurse Reproductive Endocrinology and Infertility 12/25/23 Automatic Machine Attendant Relationship Specialty Start Date End Date Allyssa Robles RN Registered Nurse Reproductive Endocrinology and Infertility 12/25/23 Automatic Machine Attendant Relationship Specialty Start Date End Date Allyssa Robles RN Registered Nurse Reproductive Endocrinology and Infertility 12/25/23 Automatic Machine Attendant Relationship Specialty Start Date End Date Allyssa Robles RN Registered Nurse Reproductive Endocrinology and Infertility 12/25/23 Automatic Machine Attendant Relationship Specialty Start Date End Date Allyssa Robles RN Registered Nurse Reproductive Endocrinology and Infertility 12/25/23 Automatic Machine Attendant Relationship Specialty Start Date End Date Allyssa Robles RN Registered Nurse Reproductive Endocrinology and Infertility 12/25/23 Automatic Machine Attendant Relationship Specialty Start Date End Date Allyssa Robles RN Registered Nurse Reproductive Endocrinology and Infertility 12/25/23 Automatic Machine Attendant Relationship Specialty Start Date End Date Allyssa Robles RN Registered Nurse Reproductive Endocrinology and Infertility 12/25/23 Automatic Machine Attendant Relationship Specialty Start Date End Date Allyssa Robles RN Registered Nurse Reproductive Endocrinology and Infertility 12/25/23 Automatic Machine Attendant Relationship Specialty Start Date End Date Ginger Torres LPN Licensed Practical Nurse 12/10/23 Automatic Machine Attendant Relationship Specialty Start Date End Date Allyssa Robles RN Registered Nurse Reproductive Endocrinology and Infertility 12/25/23 Automatic Machine Attendant Relationship Specialty Start Date End Date Allyssa Robles RN Registered Nurse Reproductive Endocrinology and Infertility 12/25/23 Automatic Machine Attendant Relationship Specialty Start Date End Date Allyssa Robles RN Registered Nurse Reproductive Endocrinology and Infertility 12/25/23 Automatic Machine Attendant Relationship Specialty Start Date End Date Allyssa Robles RN Registered Nurse Reproductive Endocrinology and Infertility 12/25/23 Automatic Machine Attendant Relationship Specialty Start Date End Date Allyssa Robles RN Registered Nurse Reproductive Endocrinology and Infertility 12/25/23 Reason for Visit (unrecogniz ed section and content) Specialty Diagnoses / Procedures Referred By Alejanrdo hyatt Referred To Contact Diagnoses Endometrial polyp Procedures Polypectomy Juan Chavarria MD [address], [address] [place] [address] Referral ID Status Reason Start Date Expiration Date V isits Requested Visits Authorized [id number] Authorized 01/25/2024 01/24/2025 1 1 Specialty Diagnoses / Procedures Referred By Alejandro hyatt Referred To Contact Radiology Diagnoses Female infertility Procedures KELSY US Pelvis Limited Follicles - Follicle Studies Performed America Quintanilla, TEAROOM HOSTESS-LIVESTOCK BROKER [address] [place] [address] Referral ID Status Reason Start Date Expiration Date Visits Requested Visits Authorized [id number] Authorized Perform Procedure 02/02/2024 02/01/2025 8 8 [...] BE BASED ON THE PRIMARY CLINICAL RECORDS. [facility]. provides no warranty or guarantee of the accuracy or completeness of information in this document.
[2025-01-10 16:28] VITALS: BP 109/74; PULSE 84
== END 2025-01-10 16:50 | disposition home or self-care (01) ==
LOC: US 15:55 → FBC 15:59
PROVIDERS: Visit Provider Obstetrics & Gynecology
DX: O26.893 Other specified pregnancy related conditions, third trimester (principal); O09.813 Supervision of pregnancy resulting from assisted reproductive technology, third trimester; Z3A.32 32 weeks gestation of pregnancy
CPT/HCPCS: 76818

== ENCOUNTER 2025-01-17 15:52 | Outpatient (OUT) | payer OTHER, SELFPAY ==
--- NOTE | 2025-01-17 | US_ITS ---
The [address] [address] Patient Name: OLENA ROMERO MRN: [id number] date: 1995 Sex: F Assigned Patient Location: [facility] Current Patient Location: Accession/Order Number: [id number] Exam Date: 01/17/2025 16:08 Report Date: 01/18/2025 09:02 At the request of: RULA SMITH DO Procedure: US OB BPP w non-stress BIOPHYSICAL PROFILE: CLINICAL INFORMATION: resulting from in vitro fertilization O09.813 COMPARISON: 01/10/2025 There is a single live intrauterine gestation in cephalic presentation. The reported gestational age is 33 weeks 6 days. The heart rate measures 126 beats per minute. There is still a potential venous sutton within the placenta measuring 1.8 x 2.6 x 1.7 cm. A second hypoechoic area associated with the placental on the prior was not identified today. FINDINGS: TONE: 1 or more episodes of activity extension and flexion of extremity or opening and closing of the hand [Y] 2/2 GROSS BODY MOVEMENTS: 3 or more discrete body or limb movements [Y] 2/2 BREATHING MOVEMENTS: 1 or more episodes of breathing lasting at least 30 seconds [Y] 2/2 LONNY: A single deepest vertical pocket of amniotic fluid greater than 2 cm [Y] 2/2 LONNY: 14.2 cm Total score: 8/8 US/US OB BPP w non-stress IMPRESSION: NORMAL BIOPHYSICAL PROFILE. POSSIBLE VENOUS SUTTON. Impression dictated by: Mariela Toledo M.D. 01/18/2025 9:02 AM Dictation Location: [facility] Electronically authenticated by: [id number] Y Date: 01/18/2025 09:02
[2025-01-17 16:30] VITALS: BP 110/68; PULSE 85
== END 2025-01-17 16:52 | disposition home or self-care (01) ==
LOC: US 15:53 → FBC 15:55
PROVIDERS: Visit Provider Obstetrics & Gynecology
DX: O26.893 Other specified pregnancy related conditions, third trimester (principal); O09.813 Supervision of pregnancy resulting from assisted reproductive technology, third trimester; Z3A.33 33 weeks gestation of pregnancy
CPT/HCPCS: 76818

== ENCOUNTER 2025-01-20 15:54 | Outpatient (OUT) | payer OTHER, SELFPAY ==
--- OUTSIDE RECORDS SUMMARY | 2025-01-20 16:00 | XMS_ITS | CCD ---
Author Organization [facility] CliniSymn Care Team Providers Care Environmental Technology Professor Name Role Phone Rachana LYONS Primary Care Physician SHERWIN ., DR HORTA Attending Unavailable SHERWIN ., DR HORTA Admitting Unavailable SHERWIN ., DR HORTA Consulting Unavailable SHERWIN ., DR HORTA Admitting Unavailable SHERWIN ., DR HORTA Consulting Unavailable SHERWIN ., DR HORTA Attending Unavailable UNLU, RACQUEL Consulting Unavailable Princess Rapp Primary Care Physician Allyssa Robles RN Unavailable Unavailable Mallory Jauregui [...] VINH Referring Unavailable SHERWIN, LAYO Attending Unavailable SISSY, BRANDY Attending Unavailable SISSY, BRANDY Attending Unavailable SHERWIN, LAYO Attending Unavailable SHERWIN, LAYO Attending Unavailable SHERWIN, LAYO Attending Unavailable SHERWIN, LAYO Attending Unavailable SHERWIN, LAYO Referring Unavailable SHERWIN, LAYO Attending Unavailable SHERWIN, LAYO Attending Unavailable SHERWIN, LAYO Attending Unavailable Allergies Allergy Classification Reported Allergen(s) Allergy Type Date of Onset Reaction(s) Facility (20 sources) Azithromycin; Translations: [azithromycin] Drug Allergy 03-16-2023 Unknown (qualifier value), Unknown [facility] Work Phone: (20 sources) Latex; Translations: [Latex] Drug allergy 03-16-2023 Rash [facility] Work Phone: (20 sources) nickel; Translations: [Nickel] Drug Allergy 03-16-2023 Rash, Itching [facility] Work Phone: Medications Current Medications [...] tablet Indications: Pruritus of in second trimester ([facility]) Take 1 tablet (10 mg) by mouth [...] Do not use to face, armpits, groin., [facility]/pharmacy #[id number], 162, cm, 10/02/23 11:23:00 EDT, Height/Length Dosing, 76.7, kg, 10/02/23 11:23:00 EDT, Weight Dosing Start Date: 10/02/23 Status: Ordered Start: 02-10-2022 clobetasol pro pionate 0.05% top oint 1 bonifacio, Topical, BID, 45 gram, Refill(s) 0, Apply a thin film to affected area. Do not use to face, armpits, groin., [facility], 160, cm, 07/24/21 17:02:00 EDT, Height/Length Dosing, 71.6, kg, 07/24/21 17:02:00 EDT, Weight Dosing Start Date: 02/10/22 Status: Ordered Start: 01-29-2021 clobetasol pro pionate 0.05% top oint 1 bonifacio, Topical, BID, 45 gram, Refill(s) 1, [facility] 1985, 160, cm, 01/29/21 16:48:00 EDT, [...] Start: 02-19-2023 take 1 tablet by debra three times daily as needed for muscle spasms cyclobenzaprine 10 mg Tab 10 mg = 1 tab(s), Oral, TID, PRN for spasm, # 30 tab(s), Refills(s) 1, Pharmacy: [facility]/pharmacy #[id number], 162, cm, 02/19/23 [...] Refill(s) 6, Therapeutic tx; may refill early, [facility] 1986, 160, cm, 09/27/20 16:16:00 EDT, [...] 10 days 30 capsule 10/11/2024 12/06/2024 Discontinued .09/30 oral tablet (1 source) Start: 09-27-2020 take 1 tablet by mouth once daily .09/30 oral tablet 1 tab(s), Oral, Daily, 84 tab(s), Refill(s) 6, Therapeutic tx; may refill early, [facility] 1986, 160, cm, 09/27/20 16:16:00 EDT, [...] tablets Indications: Pruritus of in second trimester ([facility]) Day 1: 6 tablets Day 2: 5 tablets Day 3: 4 tablets Day 4: 3 tablets Day 5: 2 tablets Day 6: 1 tablet 21 tablet 10/04/2024 12/06/2024 Discontinued Start: 10-04-2024 methylPREDNISo lone (Medrol Dospak) 4 MG tablets Indications: Pruritus of in second trimester ([facility]) Day 1: 6 tablets Day 2: 5 [...] hour of each main meal containing fat, [facility] 1986, 160, cm, 07/24/21 17:02:00 [...] Take 1 each by mouth Daily Active qnszvvqe13-kaup-ztd ic-omega3 29-1-400 mg combo pack,tablet and cap,DR (14 sources) anbycoqv15-icwy- f olic-omega3 29-1-400 mg combo pack,tablet and [...] Daily, # 90 tab(s), Refills(s) 3, Pharmacy: [facility]/pharmacy #[id number], 162, cm, 10/02/23 11:23:00 EDT, Height/Length Dosing, 76.7, kg, 10/02/23 11:23:00 EDT, Weight Dosing Start Date: 10/02/23 Status: Ordered Start: 08-27-2023 take 2 tablets by mo uth once daily Topamax 25 mg Tab 50 mg = 2 tab(s), Oral, Daily, # 180 tab(s), Refills(s) 0, Pharmacy: [facility]/pharmacy #[id number], 162, cm, 08/27/23 [...] 4-7, # 90 tab(s), Refills(s) 1, Pharmacy: [facility]/pharmacy #[id number], 162, cm, 02/19/23 [...] Anxiety disorders (6 sources) Anxiety 09-30-2018 Chronic Bacterial infection; unspecified site (2 sources) Streptococcus agalactiae infection; Translations: [Streptococcal infection, unspecified site] 01-16-2025 Episodic Esophageal disorders (7 sources) Gastroesophageal reflux disease; [...] [Menorrhagia] Onset: 07-26-2022 Chronic Other complications of (4 sources) Conceived by in vitro fertilization; Translations: [...] [31 weeks gestation of ] 01-03-2025 Episodic Residual codes; unclassified (2 sources) Gestation period, 33 weeks; Translations: [33 weeks gestation of ] 01-16-2025 Episodic Screening and history of mental health [...] Test Name Value Interpretation Reference Range Facility US OB BPP W NON-STRESS on 01-18-[address] [address] Ultrasound Report Signed Patient: SYDNEY ROMERO MR#: [id number] : 1995 Acct:[id number] Age/Sex: 29 / F ADM Date: 01/17/25 Loc: US Attending Dr: Layo Courtney D.O. Ordering Physician: Layo Courtney D.O. Date of Service: 01/17/25 Procedure(s): US OB BPP w non-stress Accession Number(s): [id number] cc: Layo Courtney D.O.; Physician,Non-Staff [place] [address] Patient Name: SYDNEY ROMERO MRN: [facility]:[id number] date: 1995 Sex: F Assigned Patient Location: [facility] Current Patient Location: Accession/Order Number: [id number] Exam Date: 01/17/2025 16:08 Report Date: 01/18/2025 09:02 At the request of: LAYO COURTNEY DO Procedure: US OB BPP w non-stress BIOPHYSICAL PROFILE: CLINICAL INFORMATION: resulting from in vitro fertilization O09.813 COMPARISON: 01/10/2025 There is a single live intrauterine gestation in cephalic presentation. The reported gestational age is 33 weeks 6 days. The heart rate measures 126 beats per minute. There is still a potential venous gilmore within the placenta measuring 1.8 x 2.6 x 1.7 cm. A second hypoechoic area associated with the placental on the prior was not identified today. FINDINGS: TONE: 1 or more episodes of activity extension and flexion of extremity or opening and closing of the hand [Y] 2/2 GROSS BODY MOVEMENTS: 3 or more discrete body or limb movements [Y] 2/2 BREATHING MOVEMENTS: 1 or more episodes of breathing lasting at least 30 seconds [Y] 2/2 LONNY: A single deepest vertical pocket of amniotic fluid greater than 2 cm [Y] 2/2 LONNY: 14.2 cm Total score: 8/8 US/US OB BPP w non-stress IMPRESSION: NORMAL BIOPHYSICAL PROFILE. POSSIBLE VENOUS GILMORE. Impression dictated by: Mariela Toledo M.D. 01/18/2025 9:02 AM Dictation Location: [facility] around Us Electronically authenticated by: [id number] Y Date: 01/18/2025 09:02 Dictated By: Mariela Toledo M.D. Signed By: 01/18/25904 DD/ 1 TD/TT: Victims Advocate Clerk/Specialist: [facility] Radiology, Radiologist, - 01/18/2025 [place] [address] Ultrasound Report Signed Patient: SYDNEY ROMERO MR#: [id number] : 1995 Acct:[id number] Age/Sex: 29 / F ADM Date: 01/17/25 Loc: US Attending Dr: Layo Courtney D.O. Ordering Physician: Layo Courtney D.O. Date of Service: 01/17/25 Procedure(s): US OB BPP w non-stress Accession Number(s): [id number] cc: Layo Courtney D.O.; Physician,Non-Staff [place] [address] Patient Name: SYDNEY ROMERO MRN: [facility]:[id number] date: 1995 Sex: F Assigned Patient Location: [facility] Current Patient Location: Accession/Order Number: [id number] Exam Date: 01/17/2025 16:08 Report Date: 01/18/2025 09:02 At the request of: LAYO COURTNEY DO Procedure: US OB BPP w non-stress BIOPHYSICAL PROFILE: CLINICAL INFORMATION: resulting from in vitro fertilization O09.813 COMPARISON: 01/10/2025 There is a single live intrauterine gestation in cephalic presentation. The reported gestational age is 33 weeks 6 days. The heart rate measures 126 beats per minute. There is still a potential venous gilmore within the placenta measuring 1.8 x 2.6 x 1.7 cm. A second hypoechoic area associated with the placental on the prior was not identified today. FINDINGS: TONE: 1 or more episodes of activity extension and flexion of extremity or opening and closing of the hand [Y] 2/2 GROSS BODY MOVEMENTS: 3 or more discrete body or limb movements [Y] 2/2 BREATHING MOVEMENTS: 1 or more episodes of breathing lasting at least 30 seconds [Y] 2/2 LONNY: A single deepest vertical pocket of amniotic fluid greater than 2 cm [Y] 2/2 LONNY: 14.2 cm Total score: 8/8 US/US OB BPP w non-stress IMPRESSION: NORMAL BIOPHYSICAL PROFILE. POSSIBLE VENOUS GILMORE. Impression dictated by: Mariela Toledo M.D. 01/18/2025 9:02 AM Dictation Location: [facility] Electronically authenticated by: [id number] Y Date: 01/18/2025 09:02 Dictated By: Mariela Toledo M.D. Signed By: 01/18/25904 DD/ 1 TD/TT: Victims Advocate Clerk/Specialist: [facility] Radiology Study observation (narrative) [facility] US OB BPP W NON-STRESS Ordered By: Radiologist Radiology on 01-18-2025 [facility] Work Phone: Urinalysis macro (dipstick) panel (U)on 01-16-2025 Bilirubin, UA Negative Negative - 4(70) +++ mg/dL [facility] Blood, UA Negative Negative - 50 Jose/mcL [facility] Clarity, UA Clear [facility] Color, UA Yellow [facility] Glucose, UA Negative Negative - 2000(110) ++++ mg/dL [facility] Interpretation and review of laboratory results Abnormal [facility] Ketones, UA Negative Negative - 160(16) ++++ mg/dL [facility] Leukocytes, UA Positive Negative - 500+++ Onel/mcL [facility] Nitrite, UA Negative Negative - Positive [facility] pH, UA 6 5 - 9 [facility] Protein, UA Positive Negative - 2000(20) ++++ mg/dL [facility] Spec Grav, UA 1.03 1 - 1.03 [facility] Urobilinogen, UA 1.0 0.2 - 12 mg/dL [facility] US OB BPP W NON-STRESS on 01-10-2025 [place] [address] Ultrasound Report Signed Patient: ZIEBERSYDNEY MR#: [id number] : 1995 Acct:[id number] Age/Sex: 29 / F ADM Date: 01/10/25 Loc: US Attending Dr: Layo Courtney D.O. Ordering Physician: Layo Courtney D.O. Date of Service: 01/10/25 Procedure(s): US OB BPP w non-stress Accession Number(s): [id number] cc: Layo Courtney D.O.; Physician,Non-Staff [place] [address] Patient Name: SYDNEY ROMERO MRN: [facility]:[id number] date: 1995 Sex: F Assigned Patient Location: US Current Patient Location: Accession/Order Number: [id number] Exam Date: 01/10/2025 16:03 Report Date: 01/10/2025 21:07 At the request of: LAYO COURTNEY DO Procedure: US OB BPP w non-stress Ultrasound biophysical profile INDICATION: from IVF FINDINGS 12/09 score biophysical profile. LONNY 11.8 cm. Heart rate 153 beats per minutes.. Hypoechoic area within the placenta 2.4 x 2.1 x 1.3 cm in size. Hypoechoic focus right retroplacental region 2.2 x 2.3 x 8.2 cm in size. US/US OB BPP w non-stress Impression: 8 out of 8 score biophysical profile Question venous lakes involving the placenta. Recommend follow-up. Impression dictated by: Bernabe Romero M.D. 01/10/2025 9:07 PM Dictation Location: [place] [address] Electronically authenticated by: [id number] Y Date: 01/10/2025 21:07 Dictated By: Bernabe Romero M.D. Signed By: 01/10/252109 DD/ 06 TD/TT: Victims Advocate Clerk/Specialist: [facility] Radiology, Radiologist, - 01/10/2025 [place] [address] Ultrasound Report Signed Patient: SYDNEY ROMERO MR#: [id number] : 1995 Acct:[id number] Age/Sex: 29 / F ADM Date: 01/10/25 Loc: US Attending Dr: Layo Courtney D.O. Ordering Physician: Layo Courtney D.O. Date of Service: 01/10/25 Procedure(s): US OB BPP w non-stress Accession Number(s): [id number] cc: Layo Courtney D.O.; Physician,Non-Staff [place] [address] Patient Name: SYDNEY ROMERO MRN: [facility]:[id number] date: 1995 Sex: F Assigned Patient Location: US Current Patient Location: Accession/Order Number: [id number] Exam Date: 01/10/2025 16:03 Report Date: 01/10/2025 21:07 At the request of: LAYO COURTNEY DO Procedure: US OB BPP w non-stress Ultrasound biophysical profile INDICATION: from IVF FINDINGS 12/09 score biophysical profile. LONNY 11.8 cm. Heart rate 153 beats per minutes.. Hypoechoic area within the placenta 2.4 x 2.1 x 1.3 cm in size. Hypoechoic focus right retroplacental region 2.2 x 2.3 x 8.2 cm in size. US/US OB BPP w non-stress Impression: 8 out of 8 score biophysical profile Question venous lakes involving the placenta. Recommend follow-up. Impression dictated by: Bernabe Romero M.D. 01/10/2025 9:07 PM Dictation Location: [place] [address] Electronically authenticated by: [id number] Y Date: 01/10/2025 21:07 Dictated By: Bernabe Romero M.D. Signed By: 01/10/252109 DD/ 06 TD/TT: Victims Advocate Clerk/Specialist: [facility] Radiology Study observation (narrative) [facility] US OB BPP W NON-STRESS Ordered By: Radiologist Radiology on 01-10-2025 [facility] Work Phone: Urinalysis macro (dipstick) panel (U)on 01-03-2025 Bilirubin, UA Negative Negative - 4(70) +++ mg/dL [facility] Blood, UA Negative Negative - 50 Jose/mcL [facility] Clarity, UA Clear [facility] Color, UA Yellow [facility] Glucose, UA Trace Negative - 2000(110) ++++ mg/dL [facility] Interpretation and review of laboratory results Abnormal [facility] Ketones, UA Negative Negative - 160(16) ++++ mg/dL [facility] Leukocytes, UA Positive Negative - 500+++ Onel/mcL [facility] Nitrite, UA Negative Negative - Positive [facility] pH, UA 8 5 - 9 [facility] Protein, UA Negative Negative - 2000(20) ++++ mg/dL [facility] Spec Grav, UA 1.015 1 - 1.03 [facility] Urobilinogen, UA 1.0 0.2 - 12 mg/dL [...] II, MD, PHD at 22-Dec-2024 08:03:51 AM [facility] Normal Not Available Comment on above: Order Comment: US OB SCAN FOR GROWTH Estimated Date of Delivery: 03/01/25 Gestational Age as of 12/06/2024: 27w6d Urinalysis macro (dipstick) panel (U)on 12-19-2024 Bilirubin, UA Negative Negative - 4(70) +++ mg/dL [facility] Blood, UA Positive Negative - 50 Jose/mcL [facility] Clarity, UA Clear [facility] Color, UA Yellow [facility] Glucose, UA Negative Negative - 1999(110) ++++ mg/dL [facility] Interpretation and review of laboratory results Abnormal [facility] Ketones, UA Negative Negative - 160(16) ++++ mg/dL [facility] Leukocytes, UA Positive Negative - 500+++ Onel/mcL [facility] Comment on above: 3+ Nitrite, UA Negative Negative - Positive [facility] pH, UA 6 5 - 9 [facility] Protein, UA Positive Negative - 1999(20) ++++ mg/dL [facility] Spec Grav, UA 1.03 1 - 1.03 [facility] Urobilinogen, UA 1.0 0.2 - 12 mg/dL Critical [facility] hospital GLUCOSE TOLERANCE 3 HOURon 0 12-06-2024 GLUCOSE TOLERANCE 3 HOUR mg/dL [facility] Comment on above: GLU FAST 90 (<95) Co l: 12/06/24 1126 GLU 1HR 143 (<180) Col: 12/06/24 1235 GLU 2HR 132 (<155) Col: 12/06/24 1327 GLU 3HR 81 (<140) Col: 12/06/24 1432 [facility] Urinalysis macro (dipstick) panel (U)on 12-06-2024 Bilirubin, UA Negative Negative - 4(70) +++ mg/dL [facility] Blood, UA Negative Negative - 50 Jose/mcL [facility] Clarity, UA Clear [facility] Color, UA Yellow [facility] Glucose, UA Negative Negative - 1999(110) ++++ mg/dL [facility] Interpretation and review of laboratory results Abnormal [facility] Ketones, UA Negative Negative - 160(16) ++++ mg/dL [facility] Leukocytes, UA 3+ Negative - 500+++ Onel/mcL [facility] Nitrite, UA Negative Negative - Positive [facility] pH, UA 8 5 - 9 [facility] Protein, UA Negative Negative - 2000(20) ++++ mg/dL [facility] Spec Grav, UA 1.015 1 - 1.03 [facility] Urobilinogen, UA 1.0 0.2 - 12 mg/dL Critical [facility] hospital ALL CBC WITH AUTO DIFFon BASOPHILS ABSOLUTE AUTO 0 N [facility] Basophils/100 WBC (Bld) 0.3 % 0.2 - 2.0 % [facility] Eosinophils/100 WBC (Bld) 1.1 % 0.9 - 7.0 % [facility] Erythrocyte distribution width (RBC) [Ratio] 12.4 % 11.0 - 15.0 % [facility] Hematocrit (Bld) [Volume fraction] 38.9 % 36.0 - 48.0 % [facility] Hemoglobin (Bld) [Mass/Vol] 13.6 g/dL 12.0 - 16.0 g/dL [facility] IMMATURE GRANULOCYTES ABS AUTO 0.13 High [facility] Immature granulocytes/100 WBC (Bld) 1.4 % High 0.0 - 0.5 % [facility] Interpretation and review of laboratory results Abnormal [facility] LYMPHOCYTES ABSOLUTE AUTO 1.7 [facility] Lymphocytes/100 WBC (Bld) 18.9 % Low 20.5 - 60. 0 % [facility] MCH (RBC) [Entitic mass] 31.5 pg 26. 7 - 34.0 pg [facility] MCHC (RBC) [Mass/Vol] 35 g/dL 29.9 - 35.2 g/dL [facility] MCV (RBC) [Entitic vol] 90 fL 81.0 - 99.0 fL [facility] MONOCYTES ABSOLUTE AUTO 0.4 N [facility] Monocytes/100 WBC (Bld) 4.6 % 1.7 - 12.0 % [facility] NEUTROPHILS ABSOLUTE AUTO 6.8 High [facility] Neutrophils/100 WBC (Bld) 73.7 % 43.0 - 75. 0 % [facility] Platelet mean volume (Bld) [Entitic vol] 11.3 fL 9.5 - 13.5 fL [facility] EO # 0.1 [facility] PLT 142 Low [facility] RBC 4.32 [facility] WBC 9.2 [facility] Urinalysis macro (dipstick) panel (U)on 11-09-2024 Bilirubin, UA Negative Negative - 4(70) +++ mg/dL [facility] Blood, UA Negative Negative - 50 Jose/mcL [facility] Clarity, UA Clear [facility] Color, UA Yellow [facility] Glucose, UA Negative Negative - 1999(110) ++++ mg/dL [facility] Interpretation and review of laboratory results Normal [facility] Ketones, UA Negative Negative - 160(16) ++++ mg/dL [facility] Leukocytes, UA Negative Negative - 500+++ Onel/mcL [facility] Nitrite, UA Negative Negative - Positive [facility] pH, UA 5.5 5 - 9 [facility] Protein, UA Negative Negative - 1999(20) ++++ mg/dL [facility] Spec Grav, UA 1.025 1 - 1.03 [facility] Urobilinogen, UA 1.0 0.2 - 12 mg/dL [facility] Urinalysis macro (dipstick) panel (U)on 10-17-2024 Bilirubin, UA Negative Negative - 4(70) +++ mg/dL [facility] Blood, UA Negative Negative - 50 Jose/mcL [facility] Clarity, UA Clear [facility] Color, UA Yellow [facility] Glucose, UA Negative Negative - 1999(110) ++++ mg/dL [facility] Interpretation and review of laboratory results Abnormal [facility] Ketones, UA Negative Negative - 160(16) ++++ mg/dL [facility] Leukocytes, UA Positive Negative - 500+++ Onel/mcL [facility] Comment on above: small Nitrite, UA Negative Negative - Positive [facility] pH, UA 7 5 - 9 [facility] Protein, UA Negative Negative - 1999(20) ++++ mg/dL [facility] Spec Grav, UA 1.015 1 - 1.03 [facility] Urobilinogen, UA 0.2 0.2 - 12 mg/dL [facility] ALL CBC WITH AUTO DIFFon BASOPHILS ABSOLUTE AUTO 0 N [facility] Basophils/100 WBC (Bld) 0.2 % 0.2 - 2.0 % [facility] Eosinophils/100 WBC (Bld) 3.2 % 0.9 - 7.0 % [facility] Erythrocyte distribution width (RBC) [Ratio] 12.5 % 11.0 - 15.0 % [facility] Hematocrit (Bld) [Volume fraction] 37.9 % 36.0 - 48.0 % [facility] Hemoglobin (Bld) [Mass/Vol] 13.2 g/dL 12.0 - 16.0 g/dL [facility] IMMATURE GRANULOCYTES ABS AUTO 0.14 High [facility] Immature granulocytes/100 WBC (Bld) 1.5 % High 0.0 - 0.5 % [facility] Interpretation and review of laboratory results Abnormal [facility] LYMPHOCYTES ABSOLUTE AUTO 2 [facility] Lymphocytes/100 WBC (Bld) 20.8 % 20.5 - 60. 0 % [facility] MCH (RBC) [Entitic mass] 30.9 pg 26. 7 - 34.0 pg [facility] MCHC (RBC) [Mass/Vol] 34.8 g/dL 29.9 - 35.2 g/dL [facility] MCV (RBC) [Entitic vol] 88.8 fL 81.0 - 99.0 fL [facility] MONOCYTES ABSOLUTE AUTO 0.7 N [facility] Monocytes/100 WBC (Bld) 7.2 % 1.7 - 12.0 % [facility] NEUTROPHILS ABSOLUTE AUTO 6.3 [facility] Neutrophils/100 WBC (Bld) 67.1 % 43.0 - 75. 0 % [facility] Platelet mean volume (Bld) [Entitic vol] 11.1 fL 9.5 - 13.5 fL [facility] EO # 0.3 [facility] PLT 153 [facility] RBC 4.27 [facility] WBC 9.4 [facility] US OB DETAIL ANATOMYon 10-07-2024 US OB [...] EFW (oz) 12 oz EFW by: Hadlock (WHW-DK-OV-FL) Extended Superintendent Of Generation 6.0 mm CM 4.4 mm 36% Nicolaides [...] Normal LVOT view: Normal 3-vessel view: Normal 7-ogatwd-xwramud view: Normal Heart / Thorax Situs: situs [...] Normal L (more content not included)... Normal [facility] US for pregnancyon 5 Interpreted by: Ad [...] EFW (oz) 12 oz EFW by: Hadlock (CTC-PU-FM-FL) Extended Superintendent Of Generation 6.0 mm CM 4.4 mm 36% Nicolaides [...] Normal LVOT view: Normal 3-vessel view: Normal 3-pfxvpu-elkcwnb view: Normal Heart / Thorax Situs: situs [...] Assisted Reproductive Technology History ====== General History Tizcow036 cm Height (ft)5 ft Height (in)3 in Previous Outcomes Gravida1 Para0 Maternal Assessment Wsdyup820 cm Height (ft)5 ft Height (in)3 in Lrriix44 kg Weight (lb)165 lb Weight gain0 kg [...] 87% Hadlock Femur32.4 mm20w 1d 73% Hadlock Hnuuuja87.4 mm 45% Chitty HC / AC1.05 2% Hadlock [id number] g20w 1d 91% Hadlock EFW (lb)0 lb EFW (oz)12 oz EFW by:Hadlock (DEF-TA-YY-FL) Extended Vp6.0 mm CM4.4 mm 36% Nicolaides Nasal bone4.7 mm Head / Face / Neck Cephalic index0.74 10% Nicolaides Nasal bone:present Extremities / Bony Struc FL / BPD0.74 92% Hadlock FL / HC0.20 96% Hadlock FL / AC0.21 35% Hadlock Other Structures MUK465 bpm Anatomy Cranium:Normal Lateral ventricles:Normal Choroid plexus:Normal [...] view:Normal RVOT view:Normal LVOT view:Normal 3-vessel view:Normal 5-gdgzxb-edveffr view:Normal Heart / Thorax Situs:situs solitus (normal) [...] leg:Normal (more content not included)... [facility] Work Phone: Source Facility: [facility] Interpreted by: Ad Ovalle Indication ======== [...] EFW (oz) 12 oz EFW by: Hadlock (NSU-PV-VK-FL) Extended Superintendent Of Generation 6.0 mm CM 4.4 mm 36% Nicolaides [...] Normal LVOT view: Normal 3-vessel view: Normal 1-vjfcqu-rpoaxze view: Normal Heart / Thorax Situs: situs [...] Radiology, Radiologist, MD - 10/07/2024 Source Facility: [facility] Interpreted by: Ad Ovalle Indication ======== [...] EFW (oz) 12 oz EFW by: Hadlock ([id number]) Extended Superintendent Of Generation 6.0 mm CM 4.4 mm 36% Nicolaides [...] Normal LVOT view: Normal 3-vessel view: Normal 9-pbdaxs-fcxeoll view: Normal Heart / Thorax Situs: situs [...] Normal Lt forear (more content not included)... [facility] Radiology Study observation (narrative) [facility] Work Phone: Radiology Study observation (narrative) [facility] US for pregnancyOrdered By: Ad Ovalle on 10-07-2024 [facility] Work Phone: US for pregnancyOrdered By: Radiologist Radiology on 10-07-2024 [facility] Work Phone: RECURRENT VAGINITIS (HTRX)on 09-07-2024 ATOPOBIUM VAGINAE 0 [facility] ATOPOBIUM VAGINAE Not detected [facility] BVAB 2,3 (BACTERIAL VAGINOSIS ASSOCIATED BACTERIA 2, 3); MOBILUNCUS SPP 0 [facility] BVAB 2,3 (BACTERIAL VAGINOSIS ASSOCIATED BACTERIA 2, 3); MOBILUNCUS SPP Not detected [facility] PRESTON ALBICANS, PARAPSILOSIS, TROPICALIS 0 [facility] PRESTON ALBICANS, PARAPSILOSIS, TROPICALIS Not detected [facility] PRESTON GLABRATA 0 [facility] PRESTON GLABRATA Not detected [facility] PRESTON KRUSEI 0 [facility] PRESTON KRUSEI Not detected [facility] CHLAMYDIA TRACHOMATIS 0 [facility] CHLAMYDIA TRACHOMATIS Not detected N [facility] GARDNERELLA VAGINALIS 0 [facility] GARDNERELLA VAGINALIS Not detected N [facility] MEGASPHAERA (TYPES 1, 2) 0 [facility] MEGASPHAERA (TYPES 1, 2) Not detected [facility] MYCOPLASMA GENITALIUM 0 [facility] MYCOPLASMA GENITALIUM Not detected N [facility] NEISSERIA GONORRHOEAE 0 [facility] NEISSERIA GONORRHOEAE Not detected N [facility] TRICHOMONAS VAGINALIS 0 [facility] TRICHOMONAS VAGINALIS Not detected N [facility] Urinalysis macro (dipstick) panel (U)on 09-06-2024 Bilirubin, UA Negative Negative - 4(70) +++ mg/dL [facility] Blood, UA Negative Negative - 50 Jose/mcL [facility] Clarity, UA Clear [facility] Color, UA Yellow [facility] Glucose, UA Negative Negative - 1999(110) ++++ mg/dL [facility] Interpretation and review of laboratory results Abnormal [facility] Ketones, UA Negative Negative - 160(16) ++++ mg/dL [facility] Leukocytes, UA Positive Negative - 500+++ Onel/mcL [facility] Comment on above: small Nitrite, UA Negative Negative - Positive [facility] pH, UA 6 5 - 9 [facility] Protein, UA Negative Negative - 1999(20) ++++ mg/dL [facility] Spec Grav, UA 1.03 1 - 1.03 [facility] Urobilinogen, UA 0.2 0.2 - 12 mg/dL [facility] ALL CBC WITH AUTO DIFFon BASOPHILS ABSOLUTE AUTO 0 N [facility] Basophils/100 WBC (Bld) 0.2 % 0.2 - 2.0 % [facility] Eosinophils/100 WBC (Bld) 2.9 % 0.9 - 7.0 % [facility] Erythrocyte distribution width (RBC) [Ratio] 12 % 11.0 - 15.0 % [facility] Hematocrit (Bld) [Volume fraction] 39.3 % 36.0 - 48.0 % [facility] Hemoglobin (Bld) [Mass/Vol] 13.6 g/dL 12.0 - 16.0 g/dL [facility] IMMATURE GRANULOCYTES ABS AUTO 0.06 High [facility] Immature granulocytes/100 WBC (Bld) 0.7 % High 0.0 - 0.5 % [facility] Interpretation and review of laboratory results Abnormal [facility] LYMPHOCYTES ABSOLUTE AUTO 2.1 [facility] Lymphocytes/100 WBC (Bld) 25.4 % 20.5 - 60. 0 % [facility] MCH (RBC) [Entitic mass] 30.2 pg 26. 7 - 34.0 pg [facility] MCHC (RBC) [Mass/Vol] 34.6 g/dL 29.9 - 35.2 g/dL [facility] MCV (RBC) [Entitic vol] 87.3 fL 81.0 - 99.0 fL [facility] MONOCYTES ABSOLUTE AUTO 0.5 N [facility] Monocytes/100 WBC (Bld) 5.8 % 1.7 - 12.0 % [facility] NEUTROPHILS ABSOLUTE AUTO 5.5 [facility] Neutrophils/100 WBC (Bld) 65 % 43.0 - 75. 0 % [facility] Platelet mean volume (Bld) [Entitic vol] 10.9 fL 9.5 - 13.5 fL [facility] TBH EO # 0.2 [facility] TBH PLT 151 [facility] TB RBC 4.5 [facility] TB WBC 8.4 [facility] CLINISYNC [facility] Urinalysis macro (dipstick) panel (U)on 08-08-2024 Bilirubin, UA Negative Negative - 4(70) +++ mg/dL [facility] Blood, UA Negative Negative - 50 Jose/mcL [facility] Clarity, UA Clear [facility] Color, UA Yellow [facility] Glucose, UA Negative Negative - 1999(110) ++++ mg/dL [facility] Interpretation and review of laboratory results Abnormal [facility] Ketones, UA Negative Negative - 160(16) ++++ mg/dL [facility] Leukocytes, UA Positive Negative - 500+++ Onel/mcL [facility] Comment on above: small Nitrite, UA Negative Negative - Positive [facility] pH, UA 6 5 - 9 [facility] Protein, UA Negative Negative - 1999(20) ++++ mg/dL [facility] Spec Grav, UA 1.025 1 - 1.03 [facility] Urobilinogen, UA 0.2 0.2 - 12 mg/dL [facility] HCG ( test) Ql (U)o n 07-29-2024 Interpretation and review of laboratory results Abnormal [facility] Preg Test, Ur Positive Negative [facility] Urinalysis macro (dipstick) panel (U)on 07-29-2024 Bilirubin, UA Negative Negative - (70) +++ mg/dL [facility] Blood, UA Positive Negative - 50 Jose/mcL [facility] Comment on above: trace Clarity, UA Clear [facility] Color, UA Yellow [facility] Glucose, UA Negative Negative - 1999(110) ++++ mg/dL [facility] Interpretation and review of laboratory results Abnormal [facility] Ketones, UA Negative Negative - 160(16) ++++ mg/dL [facility] Leukocytes, UA Positive Negative - 500+++ Onel/mcL [facility] Comment on above: small Nitrite, UA Negative Negative - Positive [facility] pH, UA 5.5 5 - 9 [facility] Protein, UA Negative Negative - 1999(20) ++++ mg/dL [facility] Spec Grav, UA 1.03 1 - 1.03 [facility] Urobilinogen, UA 0.2 0.2 - 12 mg/dL [facility] PROGESTERONEon 07-12-2024 PROGESTERONE 53.5 ng/mL Normal [facility] Comment on above: Result Comment: Refe rence Ranges Female Follicular Phase < 1.0 Luteal Phase 2.6-21.5 Post menopausal < 0.5 1st Trimester 4.1-34.0 2nd Trimester 24.0-76.0 3rd Trimester 52.0-302.0 Performed By: #### 7 45 #### [facility] [address] [facility], [address] [place] [address] Medical Pathologist: Alexey Boogie MD OB TRANSVAGINALon 025 US OB TRANSVAGINAL Interpreted [...] transvaginal evaluation for early dating. View: Sufficient [facility] Choriogonadotropin.beta subu niton 06-30-2024 HCG.beta subunit Qn 6575 m[IU]/mL High <5 [facility] Comment on above: Order Comment: Total HCG measurement is performed using the Faith Crist[employer] Access Immunoassay which detects intact HCG and free beta HCG subunit. This test is not indicated for use as a tumor marker. HCG testing is performed using a different test methodology at [facility] than other [facility]. Direct result [...] By: #### 2 1198-7 #### JOSEPH ESQUIVEL ([id number]) [facility] ([facility]) [address] [place] [address] Choriogonadotropin.beta subu niton 06-23-2024 HCG.beta subunit Qn 330 m[IU]/mL High <5 [facility] Comment on above: Order Comment: Total HCG measurement is performed using the Faith Cristopher Access Immunoassay which detects intact HCG and free beta HCG subunit. This test is not indicated for use as a tumor marker. HCG testing is performed using a different test methodology at [facility] than other [facility]. Direct result [...] By: #### 2 1198-7 #### JOSEPH ESQUIVEL ([id number]) [facility] ([facility]) [address] [place] [address] Estradiolon 06-23-2024 E2 [Mass/Vol] 378 pg/mL Normal [facility] Comment on above: Order Comment: REF V ALUES FOLLICULAR PHASE 20-144 MID CYCLE 64-357 LUTEAL PHASE 56-214 POSTMENOPAUSE < 32 PREPUBERTY < 20 FEMALE 10-18Y 8-110 MALE 10-18Y < 20 ADULT MALE < 40 Estradiol measurement is performed using the [employer] [place] Access Estradiol Immunoassay. Estradiol testing is performed using a different test methodology at [facility] than other [facility]. Direct result comparison should only be made within the same method. Performed By: #### 2 243-4 #### JOSEPH ESQUIVEL ([id number]) [facility] ([facility]) [address] [place], [place] [id number] Progesteroneon 06-23-2024 Progesterone [Mass/Vol] 42.6 ng/mL Normal [facility] Comment on above: Order Comment: REF V ALUES Male <0.2-0.8 Follicular Phase <0.2-1.5 Luteal Phase 7.4-15.4 Post Menopausal <0.2-0.2 1ST Trimester 12.0-84.0 2ND Trimester 10.2-58.8 3RD Trimester 46.5-160 Progesterone is performed using the Faith [employer] Access Immunoassay. Progesterone testing is performed using a different test methodology at [facility] than other [facility]. Direct result comparison should only be made within the same method. Performed By: #### 2 839-9 #### JOSEPH ESQUIVEL ([id number]) [facility] ([facility]) [address] [place] [address] No Panel Informationon 06-13 Juan Chavarria MD [...] Preop diagnosis: Infertility Post op diagnosis: Same Sales Team Member: none Depth: 7 cm Curve: anterior Distance [...] Juan Chavarria 06/13/24 11:24 AM [facility] Work Phone: Progesteroneon 06-13-2024 Progesterone [Mass/Vol] 45.0 ng/mL Normal [facility] Comment on above: Order Comment: REF V ALUES Male <0.2-0.8 Follicular Phase <0.2-1.5 Luteal Phase 7.4-15.4 Post Menopausal <0.2-0.2 1ST Trimester 12.0-84.0 2ND Trimester 10.2-58.8 3RD Trimester 46.5-160 Progesterone is performed using the Faith [employer] Access Immunoassay. Progesterone testing is performed using a different test methodology at [facility] than other [facility]. Direct result comparison should only be made within the same method. Performed By: #### 2 839-9 #### ORA MOHAN ([id number]) [facility] ([facility]) [address] [place] [address] Estradiolon 06-07-2024 E2 [Mass/Vol] 2870 pg/mL Normal [facility] Comment on above: Order Comment: REF V ALUES FOLLICULAR PHASE 20-144 MID CYCLE 64-357 LUTEAL PHASE 56-214 POSTMENOPAUSE < 32 PREPUBERTY < 20 FEMALE 10-18Y 8-110 MALE 10-18Y < 20 ADULT MALE < 40 Performed By: #### 2 243-4 ###Igor ESQUIVEL ([id number]) [facility] ([facility]) [address] [place] [address] Progesteroneon 06-07-2024 Progesterone [Mass/Vol] 0.4 ng/mL Normal U [facility] Comment on above: Order Comment: REF V ALUES Male <0.2-0.8 Follicular Phase <0.2-1.5 Luteal Phase 7.4-15.4 Post Menopausal <0.2-0.2 1ST Trimester 12.0-84.0 2ND Trimester 10.2-58.8 3RD Trimester 46.5-160 Progesterone is performed using the [employer] Access Immunoassay. Progesterone testing is performed using a different test methodology at [facility] than other [facility]. Direct result [...] results near 1.0 ng/mL. Contact laboratory at [phone] if alternative testing is needed. Performed By: #### 2 839-9 #### JOSEPH ESQUIVEL ([id number]) [facility] ([facility]) [address] [place] [address] [facility] US PELVIS LIMITED FOLLIC LES-FOLLICLE STUDIES PERFORMEDon 06-07-2024 [facility] US PELVIS LIMITED FOLLICLES-FOLLICLE STUDIES PERFORMED Follicle scan performed with follicle measurements in report. and Trilaminar appearance to the endometrium is noted. Normal [facility] Estradiolon 06-06-2024 E2 [Mass/Vol] 558 pg/mL Normal [facility] Comment on above: Order Comment: REF V ALUES FOLLICULAR PHASE 20-144 MID CYCLE 64-357 LUTEAL PHASE 56-214 POSTMENOPAUSE < 32 PREPUBERTY < 20 FEMALE 10-18Y 8-110 MALE 10-18Y < 20 ADULT MALE < 40 Performed By: #### 2 243-4 #### JOSEPH ESQUIVEL ([id number]) [facility] ([facility]) [address] [place] [address] Follicle Diameter USon 06-06 Trilaminar appearance to the endometrium is noted. RIS SECTRA ONLY [facility] Work Phone: Radiology Study observation (narrative) [facility] Work Phone: Progesteroneon 06-06-2024 Progesterone [Mass/Vol] 0.8 ng/mL Normal U [facility] Comment on above: Order Comment: REF V ALUES Male <0.2-0.8 Follicular Phase <0.2-1.5 Luteal Phase 7.4-15.4 Post Menopausal <0.2-0.2 1ST Trimester 12.0-84.0 2ND Trimester 10.2-58.8 3RD Trimester 46.5-160 Progesterone is performed using the [employer] Access Immunoassay. Progesterone testing is performed using a different test methodology at [facility] than other [facility]. Direct result [...] results near 1.0 ng/mL. Contact laboratory at [phone] if alternative testing is needed. Performed By: #### 2 839-9 #### JOSEPH ESQUIVEL ([id number]) [facility] ([facility]) [address] [place] [address] [facility] US ENDOMETRIAL LINING CH ECKon 06-06-2024 [facility] US ENDOMETRIAL LINING CHECK Trilaminar appearance to the endometrium is noted. Normal [facility] No Panel Informationon 03-22 Juan Chavarria MD 03/22/2024 9:44 AM Egg Retrieval Date/Time: 03/22/2024 9:39 AM Performed by: Juan Chavarria MD Authorized by: Donya Abernathy, BIOMEDICAL EQUIPMENT SUPPORT SPECIALIST-SUPPORT ASSISTANT Consent: Consent obtained: Verbal and written Consent [...] diagnosis: Female infertility Post op diagnosis: Same Sales Team Member: Dr. Warren IV Fluids: 600 cc EBL: 5 cc UOP: Not recorded Specimen: Oocytes Complications: None Number of Oocytes right ovary: 16 Ovarian access (right): Easy Number of Oocytes left ovary: 9 Ovarian access (left): Easy Endometrial thickness: n/a Needle type: Single Additional notes: [facility] RIS [facility] Work Phone: Lutropinon 03-21-2024 Lutropin Qn 29.3 IU/L Normal [facility] Comment on above: Result Comment: LH R eference Values Follicular Phase 1.5-10.0 Mid-Cycle 13.0-72.0 Luteal Phase 0.5-13.0 Menopause 15.0-65.0 Pre-puberty 0- 3.0 Children 0- 6.0 Adult Male 1.0- 9.0 Luteinizing Hormone is performed using the [employer] [place] Access Immunoassay. LH testing is performed using a different test methodology at [facility] than other [facility]. Direct result comparison should only be made within the same method. Performed By: #### 4 7236-5 #### SHAI Pickard ([id number]) [facility] ([facility]) [address] [place] [address] Progesteroneon 03-21-2024 Progesterone [Mass/Vol] 4.5 ng/mL Normal U [facility] Comment on above: Order Comment: HIV [...] By: #### 5 6888-1 #### SHAI Pickard ([id number]) [facility] ([facility]) [address] [place] [address] E2 [Mass/Vol]Ordered By: Shira Rich on 03-20-2024 REF VALUES FOLLICULAR PHASE 20-144 MID CYCLE 64-357 LUTEAL PHASE 56-214 POSTMENOPAUSE < 32 PREPUBERTY < 20 FEMALE 10-18Y 8-110 MALE 10-18Y < 20 ADULT MALE < 40 Estradiol measurement is performed using the [employer] Access Estradiol Immunoassay. Estradiol testing is performed using a different test methodology at [facility] than other [facility]. Direct result comparison should only be made within the same method. [facility] EstradiolOrdered By: Bela Rich on 03-20-2024 E2 [Mass/Vol] 4909 pg/mL [facility] Estradiolon 03-20-2024 E2 [Mass/Vol] 4909 pg/mL Normal [facility] Comment on above: Order Comment: HIV A [...] By: #### 5 6888-1 #### SHAI Pickard ([id number]) [facility] ([facility]) [address] [place] [address] Follicle Diameter USon 03-20 Follicle scan performed with follicle measurements in report. RIS SECTRA ONLY [facility] Work Phone: Radiology Study observation (narrative) [facility] Work Phone: Progesteroneon 03-20-2024 Progesterone [Mass/Vol] 1.3 ng/mL U [facility] Progesterone [Mass/Vol] 1.3 ng/mL Normal U [facility] Comment on above: Order Comment: HIV [...] By: #### 5 6888-1 #### SHAI Pickard ([id number]) [facility] ([facility]) [address] [place] [address] Progesterone [Mass/Vol]on REF VALUES Male <0.2-0.8 Follicular Phase <0.2-1.5 Luteal Phase 7.4-15.4 Post Menopausal <0.2-0.2 1ST Trimester 12.0-84.0 2ND Trimester 10.2-58.8 3RD Trimester 46.5-160 Progesterone is performed using the [employer] Access Immunoassay. Progesterone testing is performed using a different test methodology at [facility] than other [facility]. Direct result comparison should only be made within the same method. [facility] US PELVIS LIMITED FOLLIC LES-FOLLICLE STUDIES PERFORMEDon 03-20-2024 [facility] US PELVIS LIMITED FOLLICLES-FOLLICLE STUDIES PERFORMED Follicle scan performed with follicle measurements in report. Normal [facility] Estradiolon 03-19-2024 E2 [Mass/Vol] 3760 pg/mL Normal [facility] Comment on above: Order Comment: HIV A [...] By: #### 5 6888-1 #### SHAI Pickard ([id number]) [facility] ([facility]) [address] [place] [address] Follicle Diameter USon 03-19 Follicle scan performed with follicle measurements in report. RIS SECTRA ONLY [facility] Work Phone: Radiology Study observation (narrative) [facility] Work Phone: Progesteroneon 03-19-2024 Progesterone [Mass/Vol] 1.1 ng/mL Normal [facility] Comment on above: Order Comment: HIV [...] By: #### 5 6888-1 #### SHAI Pickard ([id number]) [facility] ([facility]) [address] [place] [address] [facility] US PELVIS LIMITED FOLLIC LES-FOLLICLE STUDIES PERFORMEDon 03-19-2024 [facility] US PELVIS LIMITED FOLLICLES-FOLLICLE STUDIES PERFORMED Follicle scan performed with follicle measurements in report. Normal [facility] E2 [Mass/Vol]on 03-17-2024 REF VALUES FOLLICULAR PHASE 20-144 MID CYCLE 64-357 LUTEAL PHASE 56-214 POSTMENOPAUSE < 32 PREPUBERTY < 20 FEMALE 10-18Y 8-110 MALE 10-18Y < 20 ADULT MALE < 40 Estradiol measurement is performed using the [employer] Access Estradiol Immunoassay. Estradiol testing is performed using a different test methodology at [facility] than other [facility]. Direct result comparison should only be made within the same method. [facility] Estradiolon 03-17-2024 E2 [Mass/Vol] 1462 pg/mL [facility] E2 [Mass/Vol] 1462 pg/mL Normal [facility] Comment on above: Order Comment: HIV A [...] By: #### 5 6888-1 #### SHAI Pickard ([id number]) [facility] ([facility]) [address] [place] [address] Follicle Diameter USon 03-17 Follicle scan performed with follicle measurements in report. Trilaminar appearance to the endometrium is noted. Physiologic free fluid is noted in the cul de sac. Notably retroverted uterus. Two small complex ovarian cysts noted, one on the left and one on the right. RIS SECTRA ONLY Radiology Study observation (narrative) [facility] Work Phone: Follicle Diameter USOrdered By: Leigh Ann Tuttle on 03-17-2024 [facility] Work Phone: Progesteroneon 03-17-2024 Progesterone [Mass/Vol] 0.6 ng/mL Normal [facility] Comment on above: Order Comment: HIV A g/Ab screen is performed using the Siemens JinnllKunlun HIV Ag/Ab Combo assay which detects the presence of HIV p24 antigen as well as antibodies to HIV-1 (Group M and O) and HIV-2. No laboratory evidence of HIV infection. If acute HIV infection is suspected, consider testing for HIV RNA by PCR (viral load). Performed By: #### 5 6888-1 #### SHAI Pickard ([id number]) [facility] ([facility]) [address] [place], [place] [address] [facility] US PELVIS LIMITED FOLLIC LES-FOLLICLE STUDIES PERFORMEDon 03-17-2024 [facility] US PELVIS LIMITED FOLLICLES-FOLLICLE STUDIES PERFORMED Follicle scan performed with follicle measurements in report. Trilaminar appearance to the endometrium is noted. Physiologic free fluid is noted in the cul de sac. Notably retroverted uterus. Two small complex ovarian cysts noted, one on the left and one on the right. Normal [facility] E2 [Mass/Vol]on 03-15-2024 REF VALUES FOLLICULAR PHASE 20-144 MID CYCLE 64-357 LUTEAL PHASE 56-214 POSTMENOPAUSE < 32 PREPUBERTY < 20 FEMALE 10-18Y 8-110 MALE 10-18Y < 20 ADULT MALE < 40 Estradiol measurement is performed using the [employer] Access Estradiol Immunoassay. Estradiol testing is performed using a different test methodology at [facility] than other [facility]. Direct result comparison should only be made within the same method. [facility] Estradiolon 03-15-2024 E2 [Mass/Vol] 721 pg/mL [facility] E2 [Mass/Vol] 721 pg/mL Normal [facility] Comment on above: Order Comment: REF V ALUESFOLLICULAR PHASE 20-144MID CYCLE 64-357LUTEAL PHASE 56-214POSTMENOPAUSE < 32PREPUBERTY < 20FEMALE 10-18Y 8-110MALE 10-18Y < 20ADULT MALE < 40Estradiol measurement is performed using the [employer] [place] Access Estradiol Immunoassay. Estradiol testing is performed using a different test methodology at [facility] than other [facility]. Direct resultcomparison should only be made within the same method. Performed By: #### 1 6128-1 #### SHAI Pickard ([id number]) [facility] ([facility]) [address] [place] [address] Follicle Diameter USon 03-15 Follicle scan performed with follicle measurements in report., Trilaminar appearance to the endometrium is noted., and Free fluid is noted in the cul de sac. RIS SECTRA ONLY [facility] Work Phone: Radiology Study observation (narrative) [facility] Work Phone: [facility] US PELVIS LIMITED FOLLIC LES-FOLLICLE STUDIES PERFORMEDon 03-15-2024 [facility] US PELVIS LIMITED FOLLICLES-FOLLICLE STUDIES PERFORMED Follicle scan performed with follicle measurements in report., Trilaminar appearance to the endometrium is noted., and Free fluid is noted in the cul de sac. Normal [facility] E2 [Mass/Vol]on 03-09-2024 REF VALUES FOLLICULAR PHASE 20-144 MID CYCLE 64-357 LUTEAL PHASE 56-214 POSTMENOPAUSE < 32 PREPUBERTY < 20 FEMALE 10-18Y 8-110 MALE 10-18Y < 20 ADULT MALE < 40 Estradiol measurement is performed using the [employer] [place] Access Estradiol Immunoassay. Estradiol testing is performed using a different test methodology at [facility] than other [facility]. Direct result comparison should only be made within the same method. [facility] Estradiolon 03-09-2024 E2 [Mass/Vol] pg/mL pg/mL [facility] E2 [Mass/Vol] pg/mL Normal [facility] Comment on above: Order Comment: REF V ALUESFOLLICULAR PHASE 20-144MID CYCLE 64-357LUTEAL PHASE 56-214POSTMENOPAUSE < 32PREPUBERTY < 20FEMALE 10-18Y 8-110MALE 10-18Y < 20ADULT MALE < 40Estradiol measurement is performed using the [employer] [place] Access Estradiol Immunoassay. Estradiol testing is performed using a different test methodology at [facility] than other [facility]. Direct resultcomparison should only be made within the same method. Performed By: #### 1 6128-1 #### SHAI Pickard ([id number]) [facility] ([facility]) [address] [place] [address] Follicle Diameter USon 03-09 Follicle scan performed with follicle measurements in report., Trilaminar appearance to the endometrium is noted., and Free fluid is noted in the cul de sac. RIS SECTRA ONLY Radiology Study observation (narrative) [facility] Work Phone: Follicle Diameter USOrdered By: Alicia Morgan on 03-09-2024 [facility] Work Phone: Hematocrit Auto (Bld) [Volum e fraction]on 03-09-2024 Hematocrit (Bld) [Volume fraction] 43.2 % 36.0 - 46.0 % [facility] Interpretation and review of laboratory results Normal [facility] Hematocrit (Bld) [Volume fraction] 43.2 % Normal 36.0-46.0 [facility] Comment on above: Performed By: #### 1 6128-1 #### SHAI Pickard ([id number]) [facility] ([facility]) [address] [place] [address] KELSY US PELVIS LIMITED FOLLIC LES-FOLLICLE STUDIES PERFORMEDon 03-09-2024 KELSY US PELVIS LIMITED FOLLICLES-FOLLICLE STUDIES PERFORMED Follicle scan performed with follicle measurements in report., Trilaminar appearance to the endometrium is noted., and Free fluid is noted in the cul de sac. [facility] No Panel Informationon 02-22 Juan Chavarria MD [...] diagnosis: Female infertility Post op diagnosis: Same Sales Team Member: none IV Fluids: 500 cc EBL: 5 cc UOP: Not recorded Specimen: Oocytes Complications: None Number of Oocytes right ovary: 17 Ovarian acc ss (right): Easy Number of Oocytes left ovary: 13 Ovarian access (left): Easy Endometrial thickness: n/a Needle type: Single Additional notes: [facility] Work Phone: Lutropinon 02-22-2024 Lutropin Qn 35.3 IU/L [facility] Comment on above: Result Comment: LH R eference Values Follicular Phase 1.5-10.0 Mid-Cycle 13.0-72.0 Luteal Phase 0.5-13.0 Menopause 15.0-65.0 Pre-puberty 0- 3.0 Children 0- 6.0 Adult Male 1.0- 9.0 Luteinizing Hormone is performed using the [employer] [place] Access Immunoassay. LH testing is performed using a different test methodology at [facility] than other [facility]. Direct result comparison should only be made within the same method. Performed By: #### 1 6128-1 #### SHAI Pickard ([id number]) [facility] ([facility]) [address] [place] [address] Progesteroneon 02-22-2024 Progesterone [Mass/Vol] 5.0 ng/mL Normal [facility] Comment on above: Order Comment: REF V ALUESMale <0.2-0.8Follicular Phase <0.2-1.5Luteal Phase 7.4-15.4Post Menopausal <0.2-0.21ST Trimester 12.0-84.02ND Trimester 10.2-58.83RD Trimester 46.5-160Progesterone is performed using the [employer] [place] Access Immunoassay.Progesterone testing is performed using a different test methodology at [facility] than other [facility]. Direct result comparison should only be made within the same method. Performed By: #### 1 6128-1 #### SHAI Pickard ([id number]) [facility] ([facility]) [address] [place] [address]357 E2 [Mass/Vol]Ordered By: Christi Infante on 02-21-2024 REF VALUES FOLLICULAR PHASE 20-144 MID CYCLE 64-357 LUTEAL PHASE 56-214 POSTMENOPAUSE < 32 PREPUBERTY < 20 FEMALE 10-18Y 8-110 MALE 10-18Y < 20 ADULT MALE < 40 Estradiol measurement is performed using the [employer] [place] Access Estradiol Immunoassay. Estradiol testing is performed using a different test methodology at [facility] than other [facility]. Direct result comparison should only be made within the same method. [facility] EstradiolOrdered By: Janet Ritchie on 02-21-2024 E2 [Mass/Vol] 5153 pg/mL [facility] Estradiolon 02-21-2024 E2 [Mass/Vol] 5153 pg/mL Normal [facility] Comment on above: Order Comment: REF V ALUESFOLLICULAR PHASE 20-144MID CYCLE 64-357LUTEAL PHASE 56-214POSTMENOPAUSE < 32PREPUBERTY < 20FEMALE 10-18Y 8-110MALE 10-18Y < 20ADULT MALE < 40Estradiol measurement is performed using the [employer] [place] Access Estradiol Immunoassay. Estradiol testing is performed using a different test methodology at [facility] than other [facility]. Direct resultcomparison should only be made within the same method. Performed By: #### 1 6128-1 #### SHAI Pickard ([id number]) [facility] ([facility]) [address] [place] [address] Follicle Diameter USon 02-20 Follicle scan performed with follicle measurements in report. RIS SECTRA ONLY Radiology Study observation (narrative) [facility] Work Phone: Follicle Diameter USOrdered By: Juan Chavarria on 02-21-2024 [facility] Work Phone: Luteinizing Hormone (LH)on Lutropin Qn 0.9 m[IU]/mL IU/L [facility] Comment on above: LH Reference Values Follicular Phase 1.5-10.0 Mid-Cycle 13.0-72.0 Luteal Phase 0.5-13.0 Menopause 15.0-65.0 Pre-puberty 0- 3.0 Children 0- 6.0 Adult Male 1.0- 9.0 Luteinizing Hormone is performed using the [employer] Access Immunoassay. LH testing is performed using a different test methodology at [facility] than other [facility]. Direct result comparison should only be made within the same method. Lutropinon 02-21-2024 Lutropin Qn 0.9 IU/L Normal [facility] Comment on above: Result Comment: LH R eference Values Follicular Phase 1.5-10.0 Mid-Cycle 13.0-72.0 Luteal Phase 0.5-13.0 Menopause 15.0-65.0 Pre-puberty 0- 3.0 Children 0- 6.0 Adult Male 1.0- 9.0 Luteinizing Hormone is performed using the [employer] Access Immunoassay. LH testing is performed using a different test methodology at [facility] than other [facility]. Direct result comparison should only be made within the same method. Performed By: #### 1 6128-1 #### SHAI Pickard ([id number]) [facility] ([facility]) [address] [place] [address] Lutropin Qnon 02-21-2024 [facility] Progesteroneon 02-21-2024 Progesterone [Mass/Vol] 1.3 ng/mL [facility] Progesterone [Mass/Vol] 1.3 ng/mL Normal [facility] Comment on above: Order Comment: REF V ALUESMale <0.2-0.8Follicular Phase <0.2-1.5Luteal Phase 7.4-15.4Post Menopausal <0.2-0.21ST Trimester 12.0-84.02ND Trimester 10.2-58.83RD Trimester 46.5-160Progesterone is performed using the [employer] Access Immunoassay.Progesterone testing is performed using a different test methodology at [facility] than other [facility]. Direct result comparison should only be made within the same method. Performed By: #### 5 196-1 #### SHAI Pickard ([id number]) [facility] ([facility]) [address] [place], [place] [address] Progesterone [Mass/Vol]on REF VALUES Male <0.2-0.8 Follicular Phase <0.2-1.5 Luteal Phase 7.4-15.4 Post Menopausal <0.2-0.2 1ST Trimester 12.0-84.0 2ND Trimester 10.2-58.8 3RD Trimester 46.5-160 Progesterone is performed using the [employer] Access Immunoassay. Progesterone testing is performed using a different test methodology at [facility] than other [facility]. Direct result comparison should only be made within the same method. [facility] KELSY US PELVIS LIMITED FOLLIC LES-FOLLICLE STUDIES PERFORMEDon 02-21-2024 KELSY US PELVIS LIMITED FOLLICLES-FOLLICLE STUDIES PERFORMED Follicle scan performed with follicle measurements in report. Normal [facility] Estradiolon 02-20-2024 E2 [Mass/Vol] 3718 pg/mL Normal [facility] Comment on above: Order Comment: REF V ALUESFOLLICULAR PHASE 20-144MID CYCLE 64-357LUTEAL PHASE 56-214POSTMENOPAUSE < 32PREPUBERTY < 20FEMALE 10-18Y 8-110MALE 10-18Y < 20ADULT MALE < 40Estradiol measurement is performed using the [employer] Access Estradiol Immunoassay. Estradiol testing is performed using a different test methodology at [facility] than other [facility]. Direct resultcomparison should only be made within the same method. Performed By: #### 5 196-1 #### SHAI Pickard ([id number]) [facility] ([facility]) [address] [place] [address] Progesteroneon 02-20-2024 Progesterone [Mass/Vol] 1.4 ng/mL Normal [facility] Comment on above: Order Comment: REF V ALUESMale <0.2-0.8Follicular Phase <0.2-1.5Luteal Phase 7.4-15.4Post Menopausal <0.2-0.21ST Trimester 12.0-84.02ND Trimester 10.2-58.83RD Trimester 46.5-160Progesterone is performed using the [employer] Access Immunoassay.Progesterone testing is performed using a different test methodology at [facility] than other [facility]. Direct result comparison should only be made within the same method. Performed By: #### 5 196-1 #### SHAI Pickard ([id number]) [facility] ([facility]) [address] [place] [address] KELSY US PELVIS LIMITED FOLLIC LES-FOLLICLE STUDIES PERFORMEDon 02-20-2024 KELSY US PELVIS LIMITED FOLLICLES-FOLLICLE STUDIES PERFORMED Follicle scan performed with follicle measurements in report. Normal [facility] E2 [Mass/Vol]on 02-18-2024 REF VALUES FOLLICULAR PHASE 20-144 MID CYCLE 64-357 LUTEAL PHASE 56-214 POSTMENOPAUSE < 32 PREPUBERTY < 20 FEMALE 10-18Y 8-110 MALE 10-18Y < 20 ADULT MALE < 40 Estradiol measurement is performed using the [employer] Access Estradiol Immunoassay. Estradiol testing is performed using a different test methodology at [facility] than other [facility]. Direct result comparison should only be made within the same method. [facility] Estradiolon 02-18-2024 E2 [Mass/Vol] 1472 pg/mL [facility] E2 [Mass/Vol] 1472 pg/mL Normal [facility] Comment on above: Order Comment: REF V ALUESFOLLICULAR PHASE 20-144MID CYCLE 64-357LUTEAL PHASE 56-214POSTMENOPAUSE < 32PREPUBERTY < 20FEMALE 10-18Y 8-110MALE 10-18Y < 20ADULT MALE < 40Estradiol measurement is performed using the [employer] Access Estradiol Immunoassay. Estradiol testing is performed using a different test methodology at [facility] than other [facility]. Direct resultcomparison should only be made within the same method. Performed By: #### 5 196-1 #### SHAI Pickard ([id number]) [facility] ([facility]) [address] [place] [address] Follicle Diameter USon 02-17 Follicle scan performed with follicle measurements in report. Trilaminar appearance to the endometrium is noted. Free fluid is noted in the right paraovarian space. Notably retroverted uterus. RIS SECTRA ONLY Radiology Study observation (narrative) [facility] Work Phone: Follicle Diameter USOrdered By: Leigh Ann Tuttle on 02-18-2024 [facility] Work Phone: KELSY US PELVIS LIMITED FOLLIC LES-FOLLICLE STUDIES PERFORMEDon 02-18-2024 KELSY US PELVIS LIMITED FOLLICLES-FOLLICLE STUDIES PERFORMED Follicle scan performed with follicle measurements in report. Trilaminar appearance to the endometrium is noted. Free fluid is noted in the right paraovarian space. Notably retroverted uterus. Normal [facility] E2 [Mass/Vol]on 02-16-2024 REF VALUES FOLLICULAR PHASE 20-144 MID CYCLE 64-357 LUTEAL PHASE 56-214 POSTMENOPAUSE < 32 PREPUBERTY < 20 FEMALE 10-18Y 8-110 MALE 10-18Y < 20 ADULT MALE < 40 Estradiol measurement is performed using the [employer] Access Estradiol Immunoassay. Estradiol testing is performed using a different test methodology at [facility] than other [facility]. Direct result comparison should only be made within the same method. [facility] Estradiolon 02-16-2024 E2 [Mass/Vol] 639 pg/mL [facility] E2 [Mass/Vol] 639 pg/mL Normal [facility] Comment on above: Order Comment: REF V ALUESFOLLICULAR PHASE 20-144MID CYCLE 64-357LUTEAL PHASE 56-214POSTMENOPAUSE < 32PREPUBERTY < 20FEMALE 10-18Y 8-110MALE 10-18Y < 20ADULT MALE < 40Estradiol measurement is performed using the [employer] [place] Access Estradiol Immunoassay. Estradiol testing is performed using a different test methodology at [facility] than other [facility]. Direct resultcomparison should only be made within the same method. Performed By: #### 5 196-1 #### SHAI Pickard ([id number]) [facility] ([facility]) [address] [place] [address] KELSY US PELVIS LIMITED FOLLIC LES-FOLLICLE STUDIES PERFORMEDon 02-16-2024 K[facility]SY US PELVIS LIMITED FOLLICLES-FOLLICLE STUDIES PERFORMED Follicle scan performed with follicle measurements in report. and Trilaminar appearance to the endometrium is noted. Normal [facility] E2 [Mass/Vol]on 02-09-2024 REF VALUES FOLLICULAR PHASE 20-144 MID CYCLE 64-357 LUTEAL PHASE 56-214 POSTMENOPAUSE < 32 PREPUBERTY < 20 FEMALE 10-18Y 8-110 MALE 10-18Y < 20 ADULT MALE < 40 Estradiol measurement is performed using the [employer] Access Estradiol Immunoassay. Estradiol testing is performed using a different test methodology at [facility] than other [facility]. Direct result comparison should only be made within the same method. [facility] Estradiolon 02-09-2024 E2 [Mass/Vol] pg/mL pg/mL [facility] E2 [Mass/Vol] pg/mL Normal [facility] Comment on above: Order Comment: REF V ALUESFOLLICULAR PHASE 20-144MID CYCLE 64-357LUTEAL PHASE 56-214POSTMENOPAUSE < 32PREPUBERTY < 20FEMALE 10-18Y 8-110MALE 10-18Y < 20ADULT MALE < 40Estradiol measurement is performed using the [employer] Access Estradiol Immunoassay. Estradiol testing is performed using a different test methodology at [facility] than other [facility]. Direct resultcomparison should only be made within the same method. Performed By: #### 5 196-1 #### SHAI Pickard ([id number]) [facility] ([facility]) [address] [place] [address] Follicle Diameter USon 02-08 Follicle scan performed with follicle measurements in report. MFM Radiology Study observation (narrative) [facility] Work Phone: Follicle Diameter USOrdered By: Juan Chavarria on 02-09-2024 [facility] Work Phone: Hematocrit Auto (Bld) [Volum e fraction]on 02-09-2024 Hematocrit (Bld) [Volume fraction] 42.9 % 36.0 - 46.0 % [facility] Interpretation and review of laboratory results Normal [facility] Hematocrit (Bld) [Volume fraction] 42.9 % Normal 36.0-46.0 [facility] Comment on above: Performed By: #### 4 544-3 #### JOSEPH ESQUIVEL ([id number]) [facility] ([facility]) [address] [place] [address] KELSY US PELVIS LIMITED FOLLIC LES-FOLLICLE STUDIES PERFORMEDon 02-09-2024 K[facility] US PELVIS LIMITED FOLLICLES-FOLLICLE STUDIES PERFORMED Follicle scan performed with follicle measurements in report. Normal [facility] HCG ( test) Ql (U)o n 01-28-2024 Interpretation and review of laboratory results Normal [facility] Work Phone: Preg Test, Ur Negative Negative [facility] Work Phone: [facility] Work Phone: No Panel Informationon 01-27 [...] Tolerated well, no immediate complications [facility] Work Phone: Surgical pathology studyon 0 01-28-2024 Surgical pathology study Pathology report.total SEE COMMENT Surgical Pathology Case: [id number] Authorizing Provider: Leigh Ann Tuttle MD Collected: 01/28/2024 1027 Ordering Location: [facility] Received: 01/28/2024 1027 [place] Pathologist: Yamila Leo MD Specimen: ENDOMETRIUM POLYPECTOMY [...] is entirely submitted in 1 cassette. JEK/SBS [facility] IGP,APTIMA HPV,AGE GDLNon AGE GDLN ACOG TESTING Note . [facility] Comment on above: TESTS RESULT FLAG U NITS REF RANGE LAB Clinician Provided Cytology Information Source.............Cervix;Endocervix No. of containers..01 ThinPrep Vial Age Arsh Hollis... FLAG LEGEND: L-Low Normal,H-High Normal,LL-Alert Low,HH-Alert High <-Panic Low,>-Panic High,A-Abnormal,AA-Critical Abnormal Performed at: 01 =G [address] [address] Nidhi Fay MD, IGP, RFX APTIMA HPV ASCU Note . [facility] Comment on above: TESTS RESULT FLAG UN ITS REF RANGE LAB DIAGNOSIS: 02 NEGATIVE FOR INTRAEPITHELIAL LESION OR MALIGNANCY. Specimen adequacy: 02 Satisfactory for evaluation. Endocervical and/or squamous metaplastic cells (endocervical component) are present. Performed by: 02 Isac Masters [employer] ([facility]) . 02 Note: Note 02 The [...] Low,>-Panic High,A-Abnormal,AA-Critical Abnormal Performed at: [address] [address] Nidhi Fay MD, Performed at: =G - [facility] [address] [id number] Software Technical Lead: Nidhi Fay MD, Phone: [phone] Performed at: - [facility] [id number] Software Technical Lead: Nidhi Fay MD, Phone: [phone] BRUSH-SPATULA CERVIX ENDOCERVIX [facility] Blood type and Indirect anti body screen panel (Bld)on 2023 ABO group Nom (Bld) O [facility] Blood group antibody screen Ql Negative [facility] D Ag Ql (Bld) Positive [facility] ABO group Nom (Bld) O Normal [facility] Comment on above: Performed By: #### 3 4532-2 #### JOSEPH ESQUIVEL ([id number]) [facility] ([facility]) [address] Blood group antibody screen Ql Negative Normal [facility] Comment on above: Performed By: #### 3 4532-2 #### JOSEPH ESQUIVEL ([id number]) [facility] ([facility]) [address] [place] [address] US D Ag Ql (Bld) Positive Normal [facility] Comment on above: Performed By: #### 3 4532-2 #### JOSEPH ESQUIVEL ([id number]) [facility] ([facility]) [address] [place] [address] US C. trachomatis and N. gonorr hoeae DNA EDELMIRA+probe Nom (Unsp spec)on 2023 C. trachomatis rRNA EDELMIRA+probe Ql (Unsp spec) Negative Normal Negative [facility] Comment on above: Order Comment: The [...] By: #### 3 6903-3 #### SHAI Pickard ([id number]) [facility] ([facility]) [address] [place] [address] N. gonorrhoeae DNA Probe+sig amp Ql (Unsp spec) Negative Normal Negative [facility] Comment on above: Order Comment: The A [...] By: #### 3 6903-3 #### SHAI Pickard ([id number]) [facility] ([facility]) [address] [place] [address] HIV 1+2 Ab+HIV1 p24 Agon HIV 1+2 Ab+HIV1 p24 Ag IA Ql Non-Reactive Normal Nonreactive [facility] Comment on above: Order Comment: HIV A g/Ab screen is performed using the Siemens JinnllKunlun HIV Ag/Ab Combo assay which detects the presence of HIV p24 antigen as well as antibodies to HIV-1 (Group M and O) and HIV-2. No laboratory evidence of HIV infection. If acute HIV infection is suspected, consider testing for HIV RNA by PCR (viral load). Performed By: #### 5 6888-1 #### SHAI HARRISON L ([id number]) [facility] ([facility]) [address] [place], [place] [address] Hepatitis B virus surface Ag on 2023 HBV surface Ag IA Ql Non-Reactive Normal Nonreactive [facility] Comment on above: Result Comment: Biot in interference may cause falsely decreased results. Patients taking a Biotin dose of up to 5 mg/day should refrain from taking Biotin for 24 hours before sample collection. Providers may contact their local laboratory for further information. Performed By: #### 5 196-1 #### SHAI HARRISON L ([id number]) [facility] ([facility]) [address] [place], [place] [address] Hepatitis C virus Abon 12-10 HCV Ab Ql (S) Non-Reactive Normal Nonreactive [facility] Comment on above: Result Comment: Resu lts from patients taking biotin supplements or receiving high-dose biotin therapy should be interpreted with caution due to possible interference with this test. Providers may contact their local laboratory for further information. Performed By: #### 1 6128-1 #### SHAI Pickard ([id number]) [facility] ([facility]) [address] [place] [address] Rubella virus IgG IA Qnon Rubella virus IgG IA Ql Positive Normal Negative [facility] Comment on above: Order Comment: NEGAT [...] By: #### 5 334-8 #### SHAI Pickard ([id number]) [facility] ([facility]) [address] [place], [place] [address] Rubella virus IgG Qn (S) 1.2 IA Normal <=0.7 IA [facility] Comment on above: Order Comment: NEGAT DEZ: [...] By: #### 5 334-8 #### SHAI Pickard ([id number]) [facility] ([facility]) [address] [place], [place] [address] Treponema pallidum Ab.IgG+Ig Mon 2023 T. pallidum IgG+IgM IA Ql (S) Non-Reactive Normal Nonreactive [facility] Comment on above: Result Comment: No s ignificant level of Treponema pallidum antibody detected. Repeat testing in 2 to 4 weeks may be considered if early infection or incubating syphilis infection is suspected. Performed By: #### 4 7236-5 #### HSAI Pickard ([id number]) [facility] ([facility]) [address] [place], [place] [address] VZV IgG IA Ql (S)on 12-11-19 24 VARICELLA ZOSTER IGG INDEX 5.6 IA High <=0.8 [facility] Comment on above: Order Comment: NEGAT DEZ: [...] By: #### 1 5410-4 #### SHAI Pickard ([id number]) [facility] ([facility]) [address] [place], [place] [address] Varicella zoster virus Ab.Ig Biju 2023 VZV IgG IA Ql (S) Positive Abnormal Negative [facility] Comment on above: Order Comment: NEGAT [...] By: #### 1 5410-4 #### SHAI Pickard ([id number]) [facility] ([facility]) [address] [place], [place] [address] Ambulatory Visit Summaryon 0 10-02-2023 Ambulatory Visit [...] knee anterior cruciate ligament allograft reconstruction with kodu-eelcrf-ztro, debridment medial meniscus tear, patellofemoral chondroplasty-Grade I-II (07/28/2013), Tonsillectomy, tubes in the ears. Discharge Vitals Temperature (Oral) 36.8 ?C Heart Rate (Peripheral) 65 Blood Pressure 118/66 Height 162 cm Height 64 in Weight 76.7 kg Weight 168.74 lb BMI 29.23 What to do next Scheduled Follow-Up Appointments Thursday 7:20 AM EDT With: Princess Dumont Where: [facility] Normal [facility] Family Medicine Office/Clini c Noteon 10-02-2023 [...] lot of blood work ordered by her AIRPLANE CAPTAIN and we are going to go over [...] mg once day. She has been taking xdgm-vir-eyucztv magnesium at night since initiating Topamax. Weight management. The patient expresses a desire to lose weight and re-initiate her Adipex. She has previously tried Aryan oaqw-dfn-wyehijy but found it ineffective. 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 She is agreeable trying vitamin [...] me in (more content not included)... Normal [facility] Comment on above: Result Comment: Elec tronically Signed By: Princess Dumont\.br\Date and Time Signed: 10/02/23 16:44 EDT\.br\Electronically Co-Signed By: Raj Chu\.br\Date and Time Co-Signed: 10/02/23 15:48 EDT Lab Reportson 10-02-2023 Lab Reports [id number] [id number] [facility] Patient Educationon 10-02-19 Patient Education BMI for [...] numbers. This can be done either in [place]ian ([place] or metric measurements. Note that charts and online BMI calculators are available to help you find your BMI quickly and easily without having to do these calculations yourself. To calculate your BMI in Croatian ([place] measurements: 1. Measure your weight in [...] for Disease Control and Prevention: www.cdc.gov ? [place] Heart Association: www.heart.org ? National Heart, Lung, and Blood [place]: www.nhlbi.nih.gov Summary ? Body mass index (BMI) is a number that is calculated from a person's weight and height. ? BMI may help estimate how much of a person's weight is composed of fat. BMI can help identify those who may be at higher risk for certain medical problems. ? BMI can be measured using Croatian measurements or metric measurements. ? BMI charts are used to identify whether you are underweight, normal weight, overweight, or obese. This information is not intended to replace advice given to you by your health care provider. Make sure you discuss any questions you have with your health care provider. Document Revised: 01/11/2020 Document Reviewed: 11/18/2019 [employer] Patient Education ? 2022 Hy[employer] Dx. Dermatology Eczema Eczema refers to a group [...] symptoms? S (more content not included)... Normal [facility] Transfer Inon 09-02-2023 Transfer In [id number] [id number] Normal [facility] Family Medicine Office/Clini c Noteon 08-29-2023 [...] and encouraged her to go see her AIRPLANE CAPTAIN. The patient was overweight with an elevated BMI. Her laboratories I ordered were not performed, and she did not do the x-ray that I ordered either. She presents for headaches again. Cervicalgia and persistent headaches. The patient underwent cervical x-ray in 02/20/2023 in [place], the day after her last visit on [...] in 06/2023 or 07/2023 and done at [place]. She is uncertain if cholesterol levels were checked. Her bowel movements and urination are normal. She and her switched clinics where she is the patient for an IVF and are waiting for an appointment within the next 2 months. 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 Ibuprofen every 6 to 8 hours. Tylenol [...] appearing. EN (more content not included)... Normal [facility] Comment on above: Result Comment: Elec [...] numbers. This can be done either in Croatian ([place].S[place] or metric measurements. Note that charts and online BMI calculators are available to help you find your BMI quickly and easily without having to do these calculations yourself. To calculate your BMI in Croatian ([place].) measurements: 1. Measure your weight in [...] for Disease Control and Prevention: www.cdc.gov ? [place] Heart Association: www.heart.org ? National Heart, Lung, and Blood [place]: www.nhlbi.nih.gov Summary ? Body mass index (BMI) is a number that is calculated from a person's weight and height. ? BMI may help estimate how much of a person's weight is composed of fat. BMI can help identify those who may be at higher risk for certain medical problems. ? BMI can be measured using Croatian measurements or metric measurements. ? BMI charts are used to identify whether you are underweight, normal weight, overweight, or obese. This information is not intended to replace advice given to you by your health care provider. Make sure you discuss any questions you have with your health care provider. Document Revised: 01/11/2020 Document Reviewed: 11/18/2019 [employer] Patient Education ? 2022 Hydra Dx. Endocrinology Carbohydrate Counting for Diabetes Mellitus, Adult [...] contain carbohydra (more content not included)... Normal [facility] DHEA SERUMon 07-31-2022 Dehydroepiandrosterone (DHEA) 429 ng/dL Normal 31-701 [facility] Comment on above: Performed By: #### D MILTON. #### [facility] [address] [place] [address] Dr. Meghna Alas ANTI-MULLERIAN HORMONEon Anti-Mullerian Hormone (AMH) 2.01 ng/mL Normal [facility] Comment on above: Result Comment: For assays employing antibodies, the possibility exists for interference by heterophile antibodies in the samples.1 1.Ramon Calderon Interferences in Immunoassays - still a threat. Clin. Chem. 2000; 46: 7073-4505. This test was developed and its performance characteristics determined by [employer]. It has not been cleared or approved by the Food and Drug Administration. Reference Range: Females 20 - 25y: 1.23 - 11.51 Median 4.70 AMH concentrations of >= 1.06 ng/mL is correlated with a better response to ovarian stimulation, produced more retrievable oocytes and higher odds of live according to Efra et al. Fertility and Sterility. 2010: 94:0619-8214. The current AMH test method correlates with [...] tumor. Performed By: #### A JOSE #### [facility] [address] [address] [address] Meghna Alas PAP ACOG PANEL 2: 21 to 29on 07-29-2022 . . Normal [facility] Comment on above: Performed By: #### [id number] ####[facility] [address] [address]Dr. Meghna Alas Age Gdln ACOG Testing 21-29 Normal [facility] Comment on above: Performed By: #### 4 [id number] ####[facility] [address] [address]Dr. Meghna Alas DIAGNOSIS: Comment [facility] Comment on above: Result Comment: NEGA TIVE FOR INTRAEPITHELIAL LESION OR MALIGNANCY. Performed By: #### 4 [id number] ####[facility] [id number] [address]Dr. Meghna Alas Methodology: Comment [facility] Comment on above: Result Comment: This liquid based ThinPrep(R) pap test was screened with the use of an image guided system. Performed By: #### 4 [id number] ####[facility] [address] [address]DrBetito Alas Note: Comment Normal [facility] Comment on above: Result Comment: The Pap smear is a screening test designed to aid in the detection of premalignant and malignant conditions of the uterine cervix. It is not a diagnostic procedure and should not be used as the sole means of detecting cervical cancer. Both false-positive and false-negative reports do occur. . Performed By: #### 4 [id number] ####[facility] [address] [address]DrBetito Alas Performed by: Comment Normal [facility] Comment on above: Result Comment: Antonella Villarreal, Supervisory Farmworker Animal (ASCP) Performed By: #### 4 [id number] ####[facility] [address] [address]DrBetito Alas Reflex Criteria: Comment Normal [facility] Comment on above: Result Comment: The HPV DNA reflex criteria were not met with this specimen result therefore, no HPV testing was performed. . Performed By: #### 4 [id number] ####[facility] [address] [address]DrBetito Alas Specimen adequacy: Comment Normal [facility] Comment on above: Result Comment: Sati sfactory for evaluation. Endocervical and/or squamous metaplastic cells (endocervical component) are present. Performed By: #### 4 [id number] ####[facility] [address] [address]Dr. Meghna Alas DHEA-SULFATEon 07-27-2022 DHEA-Sulfate 195.0 ug/dL Normal 110.0-431.7 [facility] Comment on above: Performed By: #### D RADHA #### [facility] [address] [address] [address] Meghna Alas FSHon 07-27-2022 FSH 11.4 mIU/mL Normal [facility] Comment on above: Result Comment: Adul t Female: Follicular phase 3.5 - 12.5 Ovulation phase 4.7 - 21.5 Luteal phase 1.7 - 7.7 Postmenopausal 25.8 - 134.8 Performed By: #### L [facility] #### [facility] [address] [place] [address] [address] [address] Meghna Alas LUTEINIZING HORMONE (LH)on 0 07-27-2022 LH 61.8 mIU/mL Normal [facility] Comment on above: Result Comment: Adul t Female: Follicular phase 2.4 - 12.6 Ovulation phase 14.0 - 95.6 Luteal phase 1.0 - 11.4 Postmenopausal 7.7 - 58.5 Performed By: #### L [facility] #### [facility] [address] [place], [place] [address] Dr. Meghna Alas US PELVIS AND TRANSVAGon [...] RACQUEL UNLU Date: 2022-07-27 08:10 Normal [facility] CBC AUTO DIFFon 07-26-2022 BASO # 0.1 103/ul Normal 0.0-0.1 [facility] Comment on above: Performed By: #### C BC #### [facility] [address] [place] [address] [address] [address] Meghna Alas Basophils/100 WBC (Bld) 0.8 % Normal 0.2-2.0 [facility] Comment on above: Performed By: #### C BC #### [facility] [address] [place] [address] Dr. Meghna Alas EO # 0.2 103/ul Normal 0.0-0.7 [facility] Comment on above: Performed By: #### C BC #### [facility] [address] [place] [address] Dr. Meghna Alas Eosinophils/100 WBC (Bld) 3.7 % Normal 0.9-7.0 [facility] Comment on above: Performed By: #### C BC #### [facility] [address] [place] [address] Dr. Meghna Alas Erythrocyte distribution width (RBC) [Ratio] 11.7 % Normal 11.0-15.0 [facility] Comment on above: Performed By: #### C BC #### [facility] [address] [place] [address] Dr. Meghna Alas Hematocrit (Bld) [Volume fraction] 43.6 % Normal 36.0-48.0 [facility] Comment on above: Performed By: #### C BC #### [facility] [address] [place] [address] Dr. Meghna Alas Hemoglobin (Bld) [Mass/Vol] 14.9 g/dL Normal 12.0-16.0 [facility] Comment on above: Performed By: #### C BC #### [facility] [address] [place] [address] Dr. Meghna Alas IG # 0.02 10e3/ul Normal 0.00-0.03 [facility] Comment on above: Performed By: #### C BC #### [facility] [address] [place] [address] Dr. Meghna Alas IG % 0.3 % Normal 0.0-0.5 [facility] Comment on above: Performed By: #### C BC #### [facility] [address] [place] [address] Dr. Meghna Alas LYMPH # 1.7 103/ul Normal 1.2-3.8 [facility] Comment on above: Performed By: #### C BC #### [facility] [address] [place] [address] Dr. Meghna Alas Lymphocytes/100 WBC (Bld) 27.7 % Normal 20.5-60.0 [facility] Comment on above: Performed By: #### C BC #### [facility] [address] [place] [address] Dr. Meghna Alas MANUAL DIFF REQ NO Normal [facility] Comment on above: Performed By: #### C BC #### [facility] [address] [place] [address] Dr. Meghna Alas MCH (RBC) [Entitic mass] 30.7 pg Normal 26.7-34.0 [facility] Comment on above: Performed By: #### C BC #### [facility] [address] [place] [address] Dr. Meghna Alas MCHC (RBC) [Mass/Vol] 34.2 g/dL Normal 29.9-35.2 [facility] Comment on above: Performed By: #### C BC #### [facility] [address] [place] [address] Dr. Meghna Alas MCV (RBC) [Entitic vol] 89.7 fL Normal 81.0-99.0 [facility] Comment on above: Performed By: #### C BC #### [facility] [address] [place] [address] Dr. Meghna Alas MONO # 0.4 103/ul Normal 0.3-0.8 [facility] Comment on above: Performed By: #### C BC #### [facility] [address] [place] [address] Dr. Meghna Alas Monocytes/100 WBC (Bld) 7.1 % Normal 1.7-12.0 [facility] Comment on above: Performed By: #### C BC #### [facility] [address] [place] [address] Dr. Meghna Alas NEUT # 3.7 103/ul Normal 1.4-6.5 [facility] Comment on above: Performed By: #### C BC #### [facility] [address] [place] [address] Dr. Meghna Alas Neutrophils/100 WBC (Bld) 60.4 % Normal 43.0-75.0 [facility] Comment on above: Performed By: #### C BC #### [facility] [address] [place] [address] Dr. Meghna Alas Platelet mean volume (Bld) [Entitic vol] 11.3 fL Normal 9.5-13.5 [facility] Comment on above: Performed By: #### C BC #### [facility] [address] [place] [address] Dr. Meghna Alas PLT 154 103/ul Normal 150-450 [facility] Comment on above: Performed By: #### C BC #### [facility] [address] [place] [address] Dr. Meghna Alas RBC 4.86 106/ul Normal 4.20-5.40 [facility] Comment on above: Performed By: #### C BC #### [facility] [address] [place] [address] Dr. Meghna Alas WBC 6.2 103/ul Normal 4.0-11.0 [facility] Comment on above: Performed By: #### C BC #### [facility] [address] [place] [address] Dr. Meghna Alas FREE T4on 07-26-2022 Free T4 [Mass/Vol] 1.04 ng/dL Normal 0.76-1.46 [facility] Comment on above: Performed By: #### F T4 #### [facility] [address] [place] [address] Dr. Meghna Alas GLYCOHEMOGLOBIN A1Con 2022 ADA RECOMMENDATION SEE BELOW Normal [facility] Comment on above: Result Comment: ADA RECOMMENDED LIMIT 4.0 - 6.0 ADA THERAPEUTIC TARGET < 7.0 ACTION SUGGESTED > 7.0 Performed By: #### A 1C #### [facility] [address] [place] [address] Dr. Meghna Alas Glucose [Mass/Vol] 82 mg/dL Normal [facility] Comment on above: Performed By: #### A 1C #### [facility] [address] [place] [address] Dr. Meghna Alas HbA1c (Bld) [Mass fraction] 4.5 % Normal 4.5-6.2 [facility] Comment on above: Performed By: #### A 1C #### [facility] [address] [address] [address] Meghna Alas TSHon 07-26-2022 TSH 1.522 uIU/mL Normal 0.358-3.740 [facility] Comment on above: Performed By: #### T SH #### [facility] [address] [place] [address] Dr. Meghna Alas Vital Signs Date Time Vital Sign Value Performing Clinician Facility 01-16-2025 15:13-0400 Body mass index (BMI) [Ratio] 40.21 kg/m2 Layo Sherwin DO Work Phone: [facility] 01-16-2025 15:13-0400 Body weight 102.97 kg Layo Sherwin DO Work Phone: [facility] 01-16-2025 15:13-0400 Diastolic blood pressure 70 mm[Hg] Layo Sherwin DO Work Phone: [facility] 01-16-2025 15:13-0400 Systolic blood pressure 110 mm[Hg] Layo Sherwin DO Work Phone: [facility] 01-03-2025 10:15-0400 Body mass index (BMI) [Ratio] 39.47 kg/m2 Layo Sherwin DO Work Phone: [facility] 01-03-2025 10:15-0400 Body weight 101.06 kg Layo Sherwin DO Work Phone: [facility] 01-03-2025 10:15-0400 Diastolic blood pressure 74 mm[Hg] Layo Sherwin DO Work Phone: [facility] 01-03-2025 10:15-0400 Systolic blood pressure 118 mm[Hg] Layo Sherwin DO Work Phone: [facility] 12-19-2024 10:06-0400 Body mass index (BMI) [Ratio] 38.76 kg/m2 Layo Sherwin DO Work Phone: [facility] 12-19-2024 10:06-0400 Body weight 99.25 kg Layo Sherwin DO Work Phone: [facility] 12-19-2024 10:06-0400 Diastolic blood pressure 70 mm[Hg] Layo Sherwin DO Work Phone: [facility] 12-19-2024 10:06-0400 Systolic blood pressure 116 mm[Hg] Layo Sherwin DO Work Phone: [facility] 12-06-2024 08:33-0400 Body mass index (BMI) [Ratio] 38.09 kg/m2 Layo Sherwin DO Work Phone: [facility] 12-06-2024 08:33-0400 Body weight 97.52 kg Layo Sherwin DO Work Phone: [facility] 12-06-2024 08:33-0400 Diastolic blood pressure 70 mm[Hg] Layo Sherwin DO Work Phone: [facility] 12-06-2024 08:33-0400 Systolic blood pressure 100 mm[Hg] Layo Sherwin DO Work Phone: [facility] 11-08-2024 14:59-0400 Body mass index (BMI) [Ratio] 35.59 kg/m2 Layo Sherwin DO Work Phone: [facility] 11-08-2024 14:59-0400 Body weight 91.13 kg Layo Sherwin DO Work Phone: [facility] 11-08-2024 14:59-0400 Diastolic blood pressure 80 mm[Hg] Layo Sherwin DO Work Phone: [facility] 11-08-2024 14:59-0400 Systolic blood pressure 122 mm[Hg] Layo Sherwin DO Work Phone: [facility] 10-17-2024 13:08-0400 Body mass index (BMI) [Ratio] 35.52 kg/m2 Layo Sherwin DO Work Phone: [facility] 10-17-2024 13:08-0400 Body weight 90.95 kg Layo Sherwin DO Work Phone: [facility] 10-17-2024 13:08-0400 Diastolic blood pressure 82 mm[Hg] Layo Sherwin DO Work Phone: [facility] 10-17-2024 13:08-0400 Systolic blood pressure 126 mm[Hg] Layo Sherwin DO Work Phone: [facility] 10-11-2024 14:41-0400 Body mass index (BMI) [Ratio] 35.22 kg/m2 Layo Sherwin DO Work Phone: [facility] 10-11-2024 14:41-0400 Body weight 90.17 kg Layo Sherwin DO Work Phone: [facility] 10-11-2024 14:41-0400 Diastolic blood pressure 74 mm[Hg] Layo Sherwin DO Work Phone: [facility] 10-11-2024 14:41-0400 Systolic blood pressure 112 mm[Hg] Layo Sherwin DO Work Phone: [facility] 09-06-2024 15:31-0400 Body mass index (BMI) [Ratio] 33.17 kg/m2 Brandy SEARS Work Phone: [facility] 09-06-2024 15:31-0400 Body weight 84.94 kg Brandy SEARS Work Phone: [facility] 09-06-2024 15:31-0400 Diastolic blood pressure 82 mm[Hg] Brandy SEARS Work Phone: [facility] 09-06-2024 15:31-0400 Systolic blood pressure 110 mm[Hg] Brandy SEARS Work Phone: [facility] 08-08-2024 13:08-0400 Body mass index (BMI) [Ratio] 32.2 kg/m2 Layo Sherwin DO Work Phone: [facility] 08-08-2024 13:08-0400 Body weight 82.46 kg Layo Sherwin DO Work Phone: [facility] 08-08-2024 13:08-0400 Diastolic blood pressure 64 mm[Hg] Layo Sherwin DO Work Phone: [facility] 08-08-2024 13:08-0400 Systolic blood pressure 100 mm[Hg] Layo Sherwin DO Work Phone: [facility] 07-29-2024 09:53-0400 Body mass index (BMI) [Ratio] 31.18 kg/m2 Nom Nurse [facility] 07-29-2024 09:53-0400 Body weight 79.83 kg Nom Nurse [facility] 07-29-2024 09:53-0400 Diastolic blood pressure 72 mm[Hg] [facility] Nurse [facility] 07-29-2024 09:53-0400 Systolic blood pressure 118 mm[Hg] [facility] Nurse [facility] 04-06-2024 14:04-0500 Blood Pressure Location Mallory Jauregui [facility] 04-06-2024 14:04-0500 Diastolic blood pressure 74 mm[Hg] Malloryly SethiJuventino [facility] 04-06-2024 14:04-0500 Heart rate 80 /min Mallory Sethicross [facility] 04-06-2024 14:04-0500 SaO2% (BldA) [Mass fraction] 100 % Mallory Sethicross [facility] 04-06-2024 14:04-0500 Systolic blood pressure 108 mm[Hg] Malloryly SethiJuventino [facility] 03-22-2024 10:45-0500 Diastolic blood pressure 62 mm[Hg] Juan Chavarria MD Work Phone: [facility] 03-22-2024 10:45-0500 Heart rate 65 /min Juan Chavarria MD Work Phone: [facility] 03-22-2024 10:45-0500 Respiratory rate 17 /min Juan Chavarria MD Work Phone: [facility] 03-22-2024 10:45-0500 SaO2% (BldA) [Mass fraction] 100 % Juan Chavarria MD Work Phone: [facility] 03-22-2024 10:45-0500 Systolic blood pressure 94 mm[Hg] Juan Chavarria MD Work Phone: [facility] 03-22-2024 09:45-0500 Body temperature 97.3 [degF] Juan Chavarria MD Work Phone: [facility] 03-22-2024 08:29-0500 Body height 160 cm Juan Chavarria MD Work Phone: [facility] 03-22-2024 08:29-0500 Body mass index (BMI) [Ratio] 29.25 kg/m2 Juan Chavarria MD Work Phone: [facility] 03-22-2024 08:29-0500 Body weight 74.9 kg Juan Chavarria MD Work Phone: [facility] 02-23-2024 09:49-0400 Body temperature 97.7 [degF] Juan Chavarria MD Work Phone: [facility] 02-23-2024 09:49-0400 Diastolic blood pressure 65 mm[Hg] Juan Chavarria MD Work Phone: [facility] 02-23-2024 09:49-0400 Heart rate 94 /min Juan Chavarria MD Work Phone: [facility] 02-23-2024 09:49-0400 Respiratory rate 22 /min Juan Chavarria MD Work Phone: [facility] 02-23-2024 09:49-0400 SaO2% (BldA) [Mass fraction] 100 % Juan Chavarria MD Work Phone: [facility] 02-23-2024 09:49-0400 Systolic blood pressure 102 mm[Hg] Juan Chavarria MD Work Phone: [facility] 02-23-2024 07:27-0400 Body height 160 cm Juan Chavarria MD Work Phone: [facility] 02-23-2024 07:27-0400 Body mass index (BMI) [Ratio] 29.41 kg/m2 Juan Chavarria MD Work Phone: [facility] 02-23-2024 07:27-0400 Body weight 75.3 kg Juan Chavarria MD Work Phone: [facility] 01-28-2024 10:31-0400 Diastolic blood pressure 59 mm[Hg] Leigh Ann Tuttle MD Work Phone: [facility] 01-28-2024 10:31-0400 Heart rate 71 /min Leigh Ann Tuttle MD Work Phone: [facility] 01-28-2024 10:31-0400 Respiratory rate 20 /min Leigh Ann Tuttle MD Work Phone: [facility] 01-28-2024 10:31-0400 SaO2% (BldA) [Mass fraction] 100 % Leigh Ann Tuttle MD Work Phone: [facility] 01-28-2024 10:31-0400 Systolic blood pressure 101 mm[Hg] Leigh Ann Tuttle MD Work Phone: [facility] 01-28-2024 09:31-0400 Body temperature 98.1 [degF] Leigh Ann Tuttle MD Work Phone: [facility] 01-28-2024 08:48-0400 Body height 160 cm Leigh Ann Tuttle MD Work Phone: [facility] 01-28-2024 08:48-0400 Body mass index (BMI) [Ratio] 29.21 kg/m2 Leigh Ann Tuttle MD Work Phone: [facility] 01-28-2024 08:48-0400 Body weight 74.8 kg Leigh Ann Tuttle MD Work Phone: [facility] 01-14-2024 10:52-0400 Body mass index (BMI) [Ratio] 29.43 kg/m2 Brandy Sissy PA Work Phone: [facility] 01-14-2024 10:52-0400 Body weight 75.35 kg Brandy Sissy PA Work Phone: [facility] 01-14-2024 10:52-0400 Diastolic blood pressure 70 mm[Hg] Brandy Sissy PA Work Phone: [facility] 01-14-2024 10:52-0400 Systolic blood pressure 120 mm[Hg] Brandy Sissy PA Work Phone: [facility] 12-28-2023 10:09-0400 Body height 160 cm Juan Chavarria MD Work Phone: [facility] 12-28-2023 10:09-0400 Body mass index (BMI) [Ratio] 30.11 kg/m2 Juan Chavarria MD Work Phone: [facility] 12-28-2023 10:09-0400 Body weight 77.11 kg Juan Chavarria MD Work Phone: [facility] 12-28-2023 10:09-0400 Diastolic blood pressure 81 mm[Hg] Juan Chavarria MD Work Phone: [facility] 12-28-2023 10:09-0400 Heart rate 62 /min Juan Chavarria MD Work Phone: [facility] 12-28-2023 10:09-0400 Systolic blood pressure 119 mm[Hg] Juan Chavarria MD Work Phone: [facility] 2023 08:46-0400 Body height 160 cm Trish Thorpe BIOMEDICAL EQUIPMENT SUPPORT SPECIALIST-SUPPORT ASSISTANT Work Phone: [facility] 2023 08:46-0400 Body mass index (BMI) [Ratio] 29.23 kg/m2 Trish Thorpe BIOMEDICAL EQUIPMENT SUPPORT SPECIALIST-SUPPORT ASSISTANT Work Phone: [facility] 2023 08:46-0400 Body weight 74.84 kg Trish Thorpe BIOMEDICAL EQUIPMENT SUPPORT SPECIALIST-SUPPORT ASSISTANT Work Phone: [facility] 2023 08:46-0400 Diastolic blood pressure 67 mm[Hg] Trish Thorpe BIOMEDICAL EQUIPMENT SUPPORT SPECIALIST-SUPPORT ASSISTANT Work Phone: [facility] 2023 08:46-0400 Heart rate 72 /min Trish Thorpe BIOMEDICAL EQUIPMENT SUPPORT SPECIALIST-SUPPORT ASSISTANT Work Phone: [facility] 2023 08:46-0400 Systolic blood pressure 122 mm[Hg] Trish Thorpe BIOMEDICAL EQUIPMENT SUPPORT SPECIALIST-SUPPORT ASSISTANT Work Phone: [facility] 10-02-2023 11:14-0400 Blood Pressure Location Princess Rapp [facility] 10-02-2023 11:14-0400 Body temperature 98.24 [degF] Princess Rapp [facility] 10-02-2023 11:14-0400 Diastolic blood pressure 66 mm[Hg] Princess Rapp [facility] 10-02-2023 11:14-0400 Heart rate 65 /min Princess Rapp [facility] 10-02-2023 11:14-0400 SaO2% (BldA) [Mass fraction] 98 % Princess Rapp [facility] 10-02-2023 11:14-0400 Systolic blood pressure 118 mm[Hg] Princess Rapp [facility] 08-27-2023 17:44-0400 Blood Pressure Location Princess Rapp [facility] 08-27-2023 17:44-0400 Body temperature 98.06 [degF] Princess Rapp [facility] 08-27-2023 17:44-0400 Diastolic blood pressure 76 mm[Hg] Princess Rapp [facility] 08-27-2023 17:44-0400 Heart rate 85 /min Princess Rapp [facility] 08-27-2023 17:44-0400 Respiratory rate 14 /min Princess Rapp [facility] 08-27-2023 17:44-0400 SaO2% (BldA) [Mass fraction] 99 % rPincess Rapp [facility] 08-27-2023 17:44-0400 Systolic blood pressure 110 mm[Hg] Princess Rapp [facility] 02-19-2023 07:41-0400 Body temperature 97.7 [degF] Princess Rapp [facility] 02-19-2023 07:41-0400 Diastolic blood pressure 70 mm[Hg] Princess Rapp [facility] 02-19-2023 07:41-0400 Heart rate 81 /min Princess Rapp [facility] 02-19-2023 07:41-0400 SaO2% (BldA) [Mass fraction] 99 % Princess Rapp [facility] 02-19-2023 07:41-0400 Systolic blood pressure 110 mm[Hg] Princess Dionte [facility] 07-24-2021 16:57-0400 Blood Pressure Location Leigh Ann Covington [facility] 07-24-2021 16:57-0400 Body temperature 97.7 [degF] Leigh Ann Covington [facility] 07-24-2021 16:57-0400 Diastolic blood pressure 68 mm[Hg] Leigh Ann Covington [facility] 07-24-2021 16:57-0400 Heart rate 88 /min Leigh Ann Covington [facility] 07-24-2021 16:57-0400 SaO2% (BldA) [Mass fraction] 99 % Leigh Ann Covington [facility] 07-24-2021 16:57-0400 Systolic blood pressure 122 mm[Hg] Leigh Ann Covington [facility] Encounters Encounter Date Encounter Type Care Provider Facility Start: 01-18-2025 End: 01-18-2025 Clinisync Result Encounter Layo Sherwin DO Work Phone: [facility] Unsolicited Start: 01-18-2025 End: 01-18-2025 Clinisync Result Encounter Layo Sherwin DO Work Phone: [facility] Unsolicited Start: 01-16-2025 End: 01-16-2025 flow sheet Layo Sherwin DO Work Phone: [facility] Comment on above: 33 weeks gestation o f ([facility]); Third trimester ([facility]); Group B streptococcal infection; resulting from in vitro fertilization in first trimester ([facility]) Start: 01-16-2025 End: 01-16-2025 ambulatory LAYO SHERWIN Not Available Start: 01-16-2025 End: 01-16-2025 Bamboo flowsheet Layo Sherwin DO Work Phone: [facility] Start: 01-16-2025 End: 01-16-2025 Bamboo flowsheet Lyao Sherwin DO Work Phone: [facility] Start: 01-10-2025 End: 01-10-2025 Clinisync Result Encounter Laoy Sherwin DO Work Phone: [facility] Unsolicited Start: 01-10-2025 End: 01-10-2025 Clinisync Result Encounter Layo Sherwin DO Work Phone: [facility] Unsolicited Start: 01-03-2025 End: 01-03-2025 Bamboo flowsheet Layo Sherwin DO Work Phone: [facility] Start: 01-03-2025 End: 01-03-2025 Bamboo flowsheet Layo Sherwin DO Work Phone: [facility] Start: 01-03-2025 End: 01-03-2025 flow sheet Layo Sherwin DO Work Phone: [facility] Comment on above: Third trimester preg rehan ([facility]); 31 weeks gestation of ([facility]); resulting from in vitro fertilization in third trimester ([facility]) Start: 01-03-2025 End: 01-03-2025 ambulatory LAYO SHERWIN Not Available Start: 12-19-2024 End: 12-19-2024 flow sheet Layo Sherwin DO Work Phone: SHIRA ZACARIAS Comment on above: 29 weeks gestation o f ([facility]); Third trimester ([facility]); Leukocytes in urine; Other microscopic hematuria Start: 12-19-2024 End: 12-19-2024 ambulatory LAYO SHERWIN Not Available Start: 12-06-2024 End: 12-06-2024 Bamboo flowsheet Layo Sherwin DO Work Phone: [facility] Start: 12-06-2024 End: 12-06-2024 Bamboo flowsheet Layo Sherwin DO Work Phone: [facility] Start: 12-06-2024 End: 12-06-2024 Clinisync Result Encounter Layo Sherwin DO Work Phone: [facility] Unsolicited Start: 12-06-2024 End: 12-06-2024 flow sheet Layo Sherwin DO Work Phone: [facility] Comment on above: 27 weeks gestation o f ([facility]); Second trimester ([facility]) Start: 12-06-2024 End: 12-06-2024 ambulatory LAYO SHERWIN Not Available Start: 11-26-2024 End: 11-26-2024 Clinisync Result Encounter Layo Sherwin DO Work Phone: [facility] Unsolicited Start: 11-26-2024 End: 11-26-2024 Clinisync Result Encounter Layo Sherwin DO Work Phone: [facility] Unsolicited Start: 11-08-2024 End: 11-08-2024 flow sheet Layo Sherwin DO Work Phone: [facility] LILIYA [facility]IPTON Comment on above: Second trimester pre gnancy ([facility]); 26 weeks gestation of ([facility]); Diabetes mellitus screening Start: 11-08-2024 End: 11-08-2024 [...] Second trimester ([facility]); 20 weeks gestation of ([facility]) Start: 10-17-2024 End: 10-17-2024 ambulatory LAYO SHERWIN Not Available Start: 10-11-2024 End: 10-11-2024 flow sheet Layo Sherwin DO Work Phone: [facility] Comment on above: Second trimester pre gnancy; 19 weeks gestation of ; Pruritus Start: 10-11-2024 End: 10-11-2024 ambulatory LAYO SHERWIN Not Available Start: 10-11-2024 End: 10-11-2024 Bamboo [...] Ultrasound 1 Valeria Hay Comment on above: ([facility]) Start: 10-07-2024 End: 10-07-2024 ambulatory LAYO JUSTICE [facility] Start: 09-22-2024 End: 09-22-2024 ambulatory BRANDY SPIVEYEY Not Available Start: 09-06-2024 End: 09-06-2024 flow sheet Brandy SEARS Work Phone: [facility] Comment on above: STD exposure; Second trimester ; 14 weeks gestation of ; Screening, , for anatomic survey Start: 09-06-2024 End: 09-06-2024 ambulatory BRANDY SISSY Not Available Start: 09-06-2024 End: 09-06-2024 Bamboo [...] trimester Start: 08-08-2024 End: 08-08-2024 ambulatory LAYO NAVARROO Not Available Start: 07-29-2024 End: 07-29-2024 Office outpatient visit 5 minutes [facility] Sherwin Nurse [facility] Comment on above: GA: 9w2d Start: 07-29-2024 End: 07-29-2024 ambulatory LAYO NAVARROO Not Available Start: 07-11-2024 End: 07-11-2024 Patient encounter procedure Donya Abernathy BIOMEDICAL EQUIPMENT SUPPORT SPECIALIST-SUPPORT ASSISTANT Work Phone: Valeria Hay Comment on above: Fertility testing (P rimary Dx); Encounter to determine viability of , single or unspecified fetus Start: 07-11-2024 End: 07-11-2024 ambulatory DONYA Pickard [facility] Start: 06-30-2024 End: 06-30-2024 [facility] Start: 06-23-2024 End: 06-23-2024 [facility] Start: 06-23-2024 End: 06-23-2024 ambulatory [facility] Start: 06-13-2024 End: 06-13-2024 Subsequent hospital visit by physician Juan Chavarria MD Work Phone: Valeria Hay Comment on above: Encounter for assist ed reproductive fertility cycle Start: 06-13-2024 End: 06-13-2024 ambulatory JUAN CHAVARRIA [facility] Start: 06-07-2024 End: 06-07-2024 ambulatory [facility] Start: 06-06-2024 End: 06-06-2024 [facility] Start: 06-06-2024 End: 06-06-2024 Professional / ancillary services management Myles Sullivan Kelsy Ultrasound [facility] Comment on above: Female infertility Start: 06-06-2024 End: 06-06-2024 ambulatory [facility] Start: 05-23-2024 End: 05-23-2024 ambulatory [facility] Start: 04-06-2024 ambulatory Mallory Esparza lity:Jessica ORDAZ Start: 04-06-2024 End: 04-06-2024 Patient encounter procedure Mallory Jauregui [facility] Start: 03-22-2024 End: 03-22-2024 Subsequent hospital visit by physician Juan Chavarria MD Work Phone: Valeria Hay Comment on above: Encounter for assist ed reproductive fertility cycle Start: 03-22-2024 End: 03-22-2024 ambulatory JUAN CHAVARRIA [facility] Start: 03-21-2024 End: 03-21-2024 ambulatory [facility] Start: 03-20-2024 End: 03-20-2024 Professional / ancillary services management Mac [id number] Kelsy Ultrasound Valeria Hay Comment on above: Female infertility Start: 03-20-2024 End: 03-20-2024 [facility] Start: 03-19-2024 End: 03-19-2024 Professional / ancillary services management Mac [id number] Kelsy Ultrasound Valeria Hay Comment on above: Female infertility Start: 03-19-2024 End: 03-19-2024 [facility] Start: 03-17-2024 End: 03-17-2024 [facility] Start: 03-17-2024 End: 03-17-2024 Professional / ancillary services management Mac [id number] Kelsy Ultrasound Valeria Hay Comment on above: Female infertility Start: 03-17-2024 End: 03-17-2024 [facility] Start: 03-15-2024 End: 03-15-2024 ambulatory [facility] Start: 03-15-2024 End: 03-15-2024 [facility] Start: 03-15-2024 End: 03-15-2024 Professional / ancillary services management Mac [id number] Kelsy Ultrasound Valeria Hay Comment on above: Female infertility Start: 03-09-2024 End: 03-09-2024 ambulatory [facility] Start: 03-09-2024 End: 03-09-2024 Patient encounter status [facility] Start: 03-09-2024 End: 03-09-2024 Professional / ancillary services management Mac [id number] Kelsy Ultrasound Valeria Hay Comment on above: Female infertility; Pre-procedure lab exam Start: 03-09-2024 End: 03-09-2024 ambulatory AMERICA Gt [facility] Start: 02-23-2024 End: 02-23-2024 Subsequent hospital visit by physician Juan Chavarria MD Work Phone: Valeria Hay Comment on above: Encounter for assist ed reproductive fertility cycle Start: 02-23-2024 End: 02-23-2024 ambulatory JUAN CHAVARRIA [facility] Start: 02-22-2024 End: 02-22-2024 ambulatory [facility] Start: 02-21-2024 End: 02-21-2024 Professional / ancillary services management Mac [id number] Kelsy Ultrasound Valeria Hay Comment on above: Female infertility Start: 02-21-2024 End: 02-21-2024 ambulatory AMERICA Gt [facility] Start: 02-20-2024 End: 02-20-2024 [facility] Start: 02-20-2024 End: 02-20-2024 Professional / ancillary services management Mac [id number] Kelsy Ultrasound Valeria Hay Comment on above: Female infertility Start: 02-20-2024 End: 02-20-2024 ambulatory AMERICA Gt [facility] Start: 02-18-2024 End: 02-18-2024 ambulatory [facility] Start: 02-18-2024 End: 02-18-2024 Professional / ancillary services management Mac [id number] Kelsy Ultrasound Valeria Hay Comment on above: Female infertility Start: 02-18-2024 End: 02-18-2024 ambulatory AMERICA Gt [facility] Start: 02-16-2024 End: 02-16-2024 Professional / ancillary services management Myles [id number] Kelsy Ultrasound [facility] Comment on above: Female infertility Start: 02-16-2024 End: 02-16-2024 ambulatory AMERICA Del Real [facility] Start: 02-09-2024 End: 02-09-2024 Patient encounter status Mac Ultrasound [facility] Start: 02-09-2024 End: 02-09-2024 Professional / ancillary services management [facility] [id number] Kelsy Ultrasound [facility] Comment on above: Pre-procedure lab ex am; Female infertility Start: 02-09-2024 End: 02-09-2024 ambulatory AMERICA Gt [facility] Start: 02-02-2024 End: 02-02-2024 ambulatory [facility] Start: 01-28-2024 End: 01-28-2024 Subsequent hospital visit by physician Leigh Ann Tuttle MD Work Phone: [facility] Darlinfadi Hay Comment on above: Endometrial polyp Start: 01-28-2024 End: 01-28-2024 ambulatory LEIGH ANN TUTTLE [facility] Start: 01-25-2024 End: 01-25-2024 ambulatory [facility] Start: 01-25-2024 End: 01-25-2024 Encounter for preprocedural laboratory examination [facility] Start: 01-14-2024 End: 01-14-2024 Bamboo flowsheet [...] preventive med est patient 18-39 yrs Brandy [place] [facility] Work Phone: [facility] Comment on above: Well woman exam with routine gynecological exam Start: 12-28-2023 End: 12-28-2023 Patient encounter procedure Juan Chavarria MD Work Phone: [facility] Comment on above: Fertility testing [Z 31.41] (Primary Dx); 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 [Z31.81, N97.8] Start: 12-28-2023 End: 12-28-2023 ambulatory JUAN CHAVARRIA [facility] Start: 12-25-2023 End: 12-25-2023 ambulatory AFUA JULIAN [facility] Start: 2023 End: 2023 ambulatory [facility] Start: 2023 End: 2023 Patient encounter procedure Trish Thorpe BIOMEDICAL EQUIPMENT SUPPORT SPECIALIST-SUPPORT ASSISTANT Work Phone: [facility] Comment on above: Encounter for screen ing for other viral diseases (Primary Dx); Encounter for Rh blood typing; Screening for STDs (sexually transmitted diseases); Genetic screening; Fertility testing; Female infertility associated with male factors Start: 2023 End: 2023 Patient encounter status Trish Thorpe BIOMEDICAL EQUIPMENT SUPPORT SPECIALIST-SUPPORT ASSISTANT Work Phone: [facility] Work Phone: Start: 2023 End: 2023 ambulatory TRISH [facility] Start: 2023 End: 2023 Encounter for blood typing TRISH Polo [facility] Start: 10-21-2023 ambulatory Princess Rapp Facil ity:Jessica ORDAZ Start: 10-02-2023 End: 10-02-2023 ambulatory Princess Rapp Facility:Jessica ORDAZ Start: 10-02-2023 End: 10-02-2023 Patient encounter procedure rPincess Rapp [facility] Start: 08-27-2023 End: 08-27-2023 ambulatory Princess aRpp Facility:[facility] Start: 08-27-2023 End: 08-27-2023 Patient encounter procedure Princess Rapp [facility] Start: 03-25-2023 End: 03-25-2023 Patient encounter procedure Princess Rapp [facility] Start: 02-19-2023 End: 02-19-2023 Patient encounter procedure Princess Rapp [facility] Start: 07-26-2022 End: 07-27-[address] LAYO COURTNEY . Facility:[facility] Start: 07-23-2022 End: 07-23-[address] LAYO COURTNEY . Facility: Start: 07-24-2021 End: 07-24-2021 Patient encounter procedure Leigh Ann Covington [facility] Procedures Date Procedure Procedure Detail Performing Clinician Start: 01-18-2025 US OB BPP W NON-STRESS Layo Sherwin DO Work Phone: Start: 01-16-2025 Urnls dip stick/tabl et rgnt non-auto w/o micrscp Layo Sherwin DO Work Phone: Start: 01-10-2025 US OB BPP W NON-STRESS Layo Sherwin DO Work Phone: Start: 01-03-2025 Urnls dip stick/tabl et rgnt [...] gestation Layo Navarroo DO Work Phone: Start: 10-07-2024 Us preg [...] dip stick/tablet rgnt non-auto w/o micrscp Layo Courtney DO Work Phone: Start: 06-13-2024 Embryo transfer intrauterine Beti Warren MD Work Phone: Start: 06-13-2024 Ultrasonic guidance intraoperative Beti Warren MD Work Phone: Start: 06-06-2024 Us pelvic nonobstetr ic image dcmtn limited/f/u Donya Pickard Josemanuel BIOMEDICAL EQUIPMENT SUPPORT SPECIALIST-SUPPORT ASSISTANT Work Phone: Start: 03-22-2024 Follicle puncture oo cyte retrieval any method Donya Pickard Josemanuel BIOMEDICAL EQUIPMENT SUPPORT SPECIALIST-SUPPORT ASSISTANT Work Phone: Start: 03-20-2024 Us pelvic nonobstetr ic image dcmtn limited/f/u Donya Pickard Josemanuel BIOMEDICAL EQUIPMENT SUPPORT SPECIALIST-SUPPORT ASSISTANT Work Phone: Start: 03-20-2024 Assay of estradiol America Fitzpatrickle BIOMEDICAL EQUIPMENT SUPPORT SPECIALIST-SUPPORT ASSISTANT Work Phone: Start: 03-19-2024 Us pelvic nonobstetr ic image dcmtn limited/f/u Donya Pickard Josemanuel BIOMEDICAL EQUIPMENT SUPPORT SPECIALIST-SUPPORT ASSISTANT Work Phone: Start: 03-17-2024 Us pelvic nonobstetr ic image dcmtn limited/f/u Donya Pickard Josemanuel BIOMEDICAL EQUIPMENT SUPPORT SPECIALIST-SUPPORT ASSISTANT Work Phone: Start: 03-17-2024 Assay of estradiol Donya Pickard Josemanuel BIOMEDICAL EQUIPMENT SUPPORT SPECIALIST-SUPPORT ASSISTANT Work Phone: Start: 03-15-2024 Us pelvic nonobstetr ic image dcmtn limited/f/u Donya Pickard Josemanuel BIOMEDICAL EQUIPMENT SUPPORT SPECIALIST-SUPPORT ASSISTANT Work Phone: Start: 03-15-2024 Assay of estradiol Donya Pickard Josemanuel BIOMEDICAL EQUIPMENT SUPPORT SPECIALIST-SUPPORT ASSISTANT Work Phone: Start: 03-09-2024 Us pelvic nonobstetr ic image dcmtn limited/f/u America Gt Dwight BIOMEDICAL EQUIPMENT SUPPORT SPECIALIST-SUPPORT ASSISTANT Work Phone: Start: 03-09-2024 Blood count hematocrit Donya Melly Abernathy BIOMEDICAL EQUIPMENT SUPPORT SPECIALIST-SUPPORT ASSISTANT Work Phone: Start: 02-23-2024 Follicle puncture oo cyte retrieval any method Beth Warren MD Work Phone: Start: 02-21-2024 Us pelvic nonobstetr ic image dcmtn limited/f/u America Gt Chavez BIOMEDICAL EQUIPMENT SUPPORT SPECIALIST-SUPPORT ASSISTANT Work Phone: Start: 02-21-2024 Gonadotropin luteini zing hormone Beti Warren MD Work Phone: Start: 02-18-2024 Us pelvic nonobstetr ic image dcmtn limited/f/u America R Dwight BIOMEDICAL EQUIPMENT SUPPORT SPECIALIST-SUPPORT ASSISTANT Work Phone: Start: 02-18-2024 Assay of estradiol America R Dwight BIOMEDICAL EQUIPMENT SUPPORT SPECIALIST-SUPPORT ASSISTANT Work Phone: Start: 02-16-2024 Assay of estradiol America R Dwight BIOMEDICAL EQUIPMENT SUPPORT SPECIALIST-SUPPORT ASSISTANT Work Phone: Start: 02-09-2024 Blood count hematocrit America R Dwight BIOMEDICAL EQUIPMENT SUPPORT SPECIALIST-SUPPORT ASSISTANT Work Phone: Start: 02-09-2024 Us pelvic nonobstetr ic image dcmtn limited/f/u America R Dwight BIOMEDICAL EQUIPMENT SUPPORT SPECIALIST-SUPPORT ASSISTANT Work Phone: Start: 01-28-2024 Hysteroscopy bx endometrium&/polypc [...] knee anterior cruciate ligament allograft reconstruction with [id number], debridment medial meniscus tear, patellofemoral chondroplasty-Grade I-II Leigh Ann Bojorquezell Tonsillectomy Leigh Ann Covington tubes in the ears Leigh Ann bartholomew Plan of Treatment Date Care Activity Detail Author Start: 2072 RSV High Risk: (Elderly (60+) or Population) (1 - 1-dose 75+ series) RSV High Risk: (Elderly (60+) or Population) (1 - 1-dose 75+ series) [facility] Start: 12-12-2047 Zoster Vaccines (1 of 2) Zoster Vaccines (1 of 2) [facility] Start: 01-13-2027 Screening for malignant neoplasm of cervix [facility] Start: 01-30-2025 End: 01-30-2025 Patient encounter procedure 01/30/2025 3:50 PM EDT Routine SHIRA ZACARIAS [address] [address] Maria M Guerrero, CORE PILER [address] [place] [address] SHIRA ZACARIAS Start: 01-16-2025 End: 01-16-2025 Patient encounter procedure SHIRA Naidu Comment on above: Arrived Start: 01-03-2025 End: 07-03-2025 US biophysical profile w non stress test US biophysical profile w non stress test Imaging Routine resulting from in vitro fertilization in third trimester ([facility]) Expected: 01/03/2025 (Approximate), Expires: 07/03/2025 [facility] Work Phone: Comment on above: Expected: 01/03/2025 (Approximate), Expi res: 07/03/2025 Start: 01-03-2025 End: 01-03-2025 Patient encounter procedure SHIRA Naidu Comment on above: Arrived Start: 01-02-2025 Influenza vaccination Influenza Vaccine (Season Ended) [facility] Start: 12-19-2024 End: 12-19-2024 Professional / ancillary services management 12/19/2024 9:30 AM EDT Ancillary Procedure SHIRA Hernandez [facility] [address] [place] [id number] [facility] Start: 12-19-2024 End: 12-19-2024 Patient encounter procedure [facility] Start: 12-06-2024 End: 12-06-2024 Patient encounter procedure [facility] Comment on above: Arrived Start: 11-08-2024 End: 11-08-2024 Patient encounter procedure 11/08/2024 2:40 PM EDT Routine [facility] [address] [place] [id number] Layo Courtney, DO [address], [place] [id number] [facility] Start: 11-08-2024 End: 11-08-2025 CBC panel - Blood by Automated count CBC Lab Routine Diabetes mellitus screening Expected: 11/08/2024 (Approximate), Expires: 11/08/2025 [facility] Work Phone: Comment on above: Expected: 11/08/2024 (Approximate), Expi res: 11/08/2025 Start: 11-08-2024 End: 11-08-2025 Measurement of glucose 1 hour after glucose challenge for glucose tolerance test Glucose tolerance, 1 hour Lab Routine Diabetes mellitus screening Expected: 11/08/2024 (Approximate), Expires: 11/08/2025 [facility] Comment on above: Expected: 11/08/2024 (Approximate), Expi res: 11/08/2025 Start: 10-17-2024 End: 10-17-2024 Patient encounter procedure 10/17/2024 1:00 PM EDT Routine [facility] [address] [place] [phone] Layo Courtney, DO [address], [place] [id number] Arrived [facility] Comment on above: Arrived Start: 10-11-2024 End: 10-11-2024 Patient encounter procedure [facility] Comment on above: Arrived Start: 10-11-2024 End: 10-11-2025 Bile acids, total Bile acids, total Lab Routine Pruritus Expected: 10/11/2024 (Approximate), Expires: 10/11/2025 [facility] Comment on above: Expected: 10/11/2024 (Approximate), Expi res: 10/11/2025 Start: 10-11-2024 End: 10-11-2025 CBC W Auto Differential panel - Blood CBC and differential Lab Routine Pruritus Expected: 10/11/2024 (Approximate), Expires: 10/11/2025 [facility] Comment on above: Expected: 10/11/2024 (Approximate), Expi res: 10/11/2025 Start: 10-11-2024 End: 10-11-2025 Hepatic function 2000 panel - Serum or Plasma Hepatic function panel Lab Routine Pruritus Expected: 10/11/2024 (Approximate), Expires: 10/11/2025 [facility] Comment on above: Expected: 10/11/2024 (Approximate), Expi res: 10/11/2025 Start: 10-11-2024 End: 10-11-2025 Hepatitis C virus Ab [Presence] in Serum or Plasma by Immunoassay Hepatitis C antibody Lab Routine Pruritus Expected: 10/11/2024 (Approximate), Expires: 10/11/2025 [facility] Work Phone: Comment on above: Expected: 10/11/2024 (Approximate), Expi res: 10/11/2025 Start: 10-11-2024 End: 10-11-2025 Thyrotropin [Units/volume] in Serum or Plasma TSH Lab Routine Pruritus Expected: 10/11/2024 (Approximate), Expires: 10/11/2025 [facility] Comment on above: Expected: 10/11/2024 (Approximate), Expi res: 10/11/2025 Start: 09-06-2024 End: 09-06-2024 Patient encounter procedure [facility] Comment on above: Arrived Start: 09-06-2024 End: 11-06-2024 Alpha fetoprotein, maternal Alpha fetoprotein, maternal Lab Routine Second trimester Expected: 09/06/2024 (Approximate), Expires: 11/06/2024 [facility] Comment on above: Expected: 09/06/2024 (Approximate), Expi res: 11/06/2024 Start: 09-06-2024 End: 12-07-2024 US for US OB 14+ weeks anatomy scan Imaging Routine Screening, , for anatomic survey Expected: 09/06/2024, Expires: 12/07/2024 [facility] Comment on above: Expected: 09/06/2024, Expires: Start: 08-08-2024 End: 08-08-2024 Patient encounter procedure [facility] Comment on above: Arrived Start: 07-29-2024 End: 07-29-2025 ABO/Rh ABO/Rh Lab Routine Missed menses , unspecified gestational age Expected: 07/29/2024 (Approximate), Expires: 07/29/2025 [facility] Comment on above: Expected: 07/29/2024 (Approximate), Expi res: 07/29/2025 Start: 07-29-2024 End: 07-29-2025 Blood type and Indirect antibody screen panel - Blood Type and screen Lab Routine Missed menses , unspecified gestational age Expected: 07/29/2024 (Approximate), Expires: 07/29/2025 [facility] Work Phone: Comment on above: Expected: 07/29/2024 (Approximate), Expi res: 07/29/2025 Start: 07-29-2024 End: 07-29-2025 Drugs of abuse panel - Urine by Screen method Rapid drug screen, urine Lab Routine , unspecified gestational age Encounter for supervision of normal first in first trimester Expected: 07/29/2024 (Approximate), Expires: 07/29/2025 [facility] Comment on above: Expected: 07/29/2024 (Approximate), Expi res: 07/29/2025 Start: 07-11-2024 End: 07-11-2025 Progesterone [Mass/volume] in Serum or Plasma Progesterone Lab Routine Fertility testing Expected: 07/11/2024 (Approximate), Expires: 07/11/2025 [facility] Service Area Work Phone: Comment on above: Expected: 07/11/2024 (Approximate), Expi res: 07/11/2025 Start: 06-23-2024 Orders Only 06/23/2024 Orders Only Valeria Hay [address] [place] [address] Ira Lopez RN Encounter for test, result unknown Valeria [facility] Comment on above: Encounter for test, result unk nown Start: 03-20-2024 End: 03-20-2025 Lutropin [Units/volume] in Serum or Plasma Luteinizing Hormone Lab STAT Female infertility Expected: 03/20/2024 (Approximate), Expires: 03/20/2025 [facility] Work Phone: Comment on above: Expected: 03/20/2024 (Approximate), Expi res: 03/20/2025 Start: 03-20-2024 End: 03-20-2025 Progesterone [Mass/volume] in Serum or Plasma Progesterone Lab STAT Female infertility Expected: 03/20/2024 (Approximate), Expires: 03/20/2025 [facility] Service Area Work Phone: Comment on above: Expected: 03/20/2024 (Approximate), Expi res: 03/20/2025 Start: 03-20-2024 End: 03-20-2024 Professional / ancillary services management 03/20/2024 8:00 AM EST Ancillary Procedure Valeria Simmonson [address] [place] [address] Valeria Simmonson Start: 03-19-2024 End: 03-19-2024 Professional / ancillary services management 03/19/2024 8:30 AM EST Ancillary Procedure TERRY Simmonson [address] [place] [address] Valeria Hay Start: 03-17-2024 End: 03-17-2025 Estradiol (E2) [Mass/volume] in Serum or Plasma Estradiol Lab STAT Female infertility Expected: 03/17/2024 (Approximate), Expires: 03/17/2025 [facility] Service Area Work Phone: Comment on above: Expected: 03/17/2024 (Approximate), Expi res: 03/17/2025 Start: 03-17-2024 End: 03-17-2025 Progesterone [Mass/volume] in Serum or Plasma [facility] Work Phone: Comment on above: Expected: 03/17/2024 (Approximate), Expi res: 03/17/2025 Start: 03-17-2024 End: 03-17-2024 Professional / ancillary services management 03/17/2024 6:45 AM EST Ancillary Procedure [facility] [address] [place] [phone] [facility] Start: 03-15-2024 End: 03-15-2024 Professional / ancillary services management 03/15/2024 6:45 AM EST Ancillary Procedure Valeria [facility] [address] [place] [address] [facility] Start: 03-09-2024 End: 03-09-2024 Professional / ancillary services management 03/09/2024 7:15 AM EST Ancillary Procedure [facility] [address] [place] [address] [facility] Start: 02-23-2024 End: 02-23-2024 Patient encounter procedure 02/23/2024 8:30 AM EDT Appointment [facility] [address] [place] [phone] Juan Chavarria MD [address] [place] [phone] [place] [address] [address] Department of Anesthesiology [place] [address] [facility] Start: 02-21-2024 End: 02-21-2024 Professional / ancillary services management 02/21/2024 8:30 AM EDT Ancillary Procedure Shaw Risfadi Hay [address] [place] [address] Shaw Darlinfadi Satnam Start: 02-20-2024 End: 02-17-2025 Estradiol (E2) [Mass/volume] in Serum or Plasma Estradiol Lab STAT Female infertility Expected: 02/20/2024 (Approximate), Expires: 02/17/2025 [facility] Service Area Work Phone: Comment on above: Expected: 02/20/2024 (Approximate), Expi res: 02/17/2025 Start: 02-20-2024 End: 02-17-2025 Progesterone [Mass/volume] in Serum or Plasma Progesterone Lab STAT Female infertility Expected: 02/20/2024 (Approximate), Expires: 02/17/2025 [facility] Work Phone: Comment on above: Expected: 02/20/2024 (Approximate), Expi res: 02/17/2025 Start: 02-20-2024 End: 02-20-2024 Professional / ancillary services management 02/20/2024 8:30 AM EDT Ancillary Procedure Valeria Chanel [facility] [address] [place] [address] Shaw Darío Hay Start: 02-18-2024 End: 02-18-2024 Professional / ancillary services management 02/18/2024 7:45 AM EDT Ancillary Procedure Shaw Risfadi Hay [address] [place] [address] Shaw Darío Hay Start: 02-16-2024 End: 02-16-2024 Professional / ancillary services management 02/16/2024 7:15 AM EDT Ancillary Procedure [facility] [address] [place] [address] [facility] Start: 02-09-2024 End: 02-09-2024 Professional / ancillary services management 02/09/2024 7:15 AM EDT Ancillary Procedure [facility] [address] [place] [address] [facility] Start: 01-14-2024 End: 01-14-2024 Patient encounter procedure 01/14/2024 11:00 AM EDT Office Visit [facility] [address] [place] [phone] Brandy Sheehan PA [address] [place] [address] Arrived [facility] Comment on above: Arrived Start: 01-03-2024 COVID-19 Vaccine () COVID-19 Vaccine ( season) [facility] Start: 01-03-2024 COVID-19 Vaccine () COVID-19 Vaccine () [facility] Start: 01-03-2024 Influenza vaccination Influenza Vaccine (#1) [facility] Start: 12-25-2023 End: 12-25-2023 Telemedicine consultation with patient 12/25/2023 9:00 AM EDT Telemedicine Clinical Support [facility] [address] [facility] [address] [place] [phone] Afua Julian I, LGC [address] [facility] [place] [address] [facility] Start: 2023 End: 12-10-2024 Chlamydia trachomatis and Neisseria gonorrhoeae DNA [Identifier] in Unspecified specimen by EDELMIRA with probe detection [facility] Work Phone: Comment on above: Expected: 2023 (Approximate), Expi res: 12/10/2024 Start: 2023 End: 12-10-2024 Hepatitis B virus surface Ag [Presence] in Serum or Plasma by Immunoassay [facility] Work Phone: Comment on above: Expected: 2023 (Approximate), Expi res: 12/10/2024 Start: 2023 End: 12-10-2024 Hepatitis C virus Ab [Presence] in Serum [facility] Work Phone: Comment on above: Expected: 2023 (Approximate), Expi res: 12/10/2024 Start: 2023 End: 12-10-2024 HIV 1+2 Ab+HIV1 p24 Ag [Presence] in Serum or Plasma by Immunoassay [facility] Work Phone: Comment on above: Expected: 2023 (Approximate), Expi res: 12/10/2024 Start: 2023 End: 12-10-2024 Rubella virus IgG Ab [Units/volume] in Serum [facility] Service Area Work Phone: Comment on above: Expected: 2023 (Approximate), Expi res: 12/10/2024 Start: 2023 End: 12-10-2024 Treponema pallidum IgG+IgM Ab [Presence] in Serum by Immunoassay [facility] Work Phone: Comment on above: Expected: 2023 (Approximate), Expi res: 12/10/2024 Start: 2023 End: 12-10-2024 Varicella zoster virus IgG Ab [Presence] in Serum by Immunoassay [facility] Work Phone: Comment on above: Expected: 2023 (Approximate), Expi res: 12/10/2024 Start: 01-02-2023 COVID-19 Vaccine ( season) COVID-19 Vaccine ( season) [facility] Start: 12-21-2019 DTaP/Tdap/Td Vaccines (2 - Td or Tdap) DTaP/Tdap/Td Vaccines (2 - Td or Tdap) [facility] Start: 2018 Screening for malignant neoplasm of cervix [facility] Start: 2016 Hepatitis B Vaccines (1 of 3 - 19+ 3-dose series) Hepatitis B Vaccines (1 of 3 - 19+ 3-dose series) [facility] Start: 12-12-2015 Hepatitis C screening Hepatitis C Screening [facility] Start: 2012 HPV Vaccines (1 - 3-dose series) HPV Vaccines (1 - 3-dose series) [facility] Start: 03-14-2010 Varicella vaccination Varicella Vaccines (2 of 2 - 2-dose childhood series) [facility] Start: 01-17-2010 MMR Vaccines (1 of 1 - Standard series) MMR Vaccines (1 of 1 - Standard series) [facility] Start: 1997 HIV screening HIV Screening [facility] Start: 1997 Lipid panel Lipid Panel [facility] Start: 1997 Yearly Adult Physical Yearly Adult Physical [facility] Bacteria identified in Urine by Culture Urine culture Microbiology Routine Missed menses Ordered: 07/29/2024 [facility] Comment on above: Ordered: 07/29/2024 Bacteria identified in Urine by Culture Urine culture Microbiology Routine Leukocytes in urine Other microscopic hematuria Ordered: 12/19/2024 [facility] Work Phone: Comment on above: Ordered: 12/19/2024 CBC W Auto Different ial panel - Blood CBC and differential Lab Routine Missed menses , unspecified gestational age Ordered: 07/29/2024 [facility] Comment on above: Ordered: 07/29/2024 CHLAMYDIA TRACHOMATI S (GENITO/STI) CHLAMYDIA TRACHOMATIS (GENITO/STI) Lab Routine STD exposure Ordered: 09/06/2024 [facility] Comment on above: Ordered: 09/06/2024 End: 02-23-2024 Choriogonadotropin ( test) [Presence] in Urine POCT , urine manually resulted Point of Care Testing Routine Once (Lab) for 1 Occurrences starting 02/23/2024 until 02/23/2024 [facility] Service Area Work Phone: Comment on above: Once (Lab) for 1 Occurrences starting until 02/23/2024 End: 03-22-2024 Choriogonadotropin ( test) [Presence] in Urine POCT , urine manually resulted Point of Care Testing Routine Once (Lab) for 1 Occurrences starting 03/22/2024 until 03/22/2024 [facility] Service Area Work Phone: Comment on above: Once (Lab) for 1 Occurrences starting until 03/22/2024 End: 06-13-2024 Choriogonadotropin ( test) [Presence] in Urine POCT , urine manually resulted Point of Care Testing Routine Once (Lab) for 1 Occurrences starting 06/13/2024 until 06/13/2024 [facility] Service Area Work Phone: Comment on above: Once (Lab) for 1 Occurrences starting until 06/13/2024 Cytology Cervical or vaginal smear or scraping study Pap Smear Pathology and Cytology Routine Well woman exam with routine gynecological exam Ordered: 01/14/2024 [facility] Work Phone: Comment on above: Ordered: 01/14/2024 Hemoglobin A1c/Hemoglobin.total in Blood Hemoglobin A1c Lab Routine Missed menses , unspecified gestational age Ordered: 07/29/2024 [facility] Comment on above: Ordered: 07/29/2024 Hepatitis B virus abrams rface Ag [Presence] in Serum or Plasma by Immunoassay Hepatitis B surface antigen Lab Routine Missed menses , unspecified gestational age Ordered: 07/29/2024 [facility] Comment on above: Ordered: 07/29/2024 Hepatitis C virus Ab [Presence] in Serum or Plasma by Immunoassay Hepatitis C antibody Lab Routine Missed menses , unspecified gestational age Ordered: 07/29/2024 [facility] Comment on above: Ordered: 07/29/2024 HIV-1/HIV-2 antigen/antibody combination immunoassay HIV-1 and HIV-2 antibodies Lab Routine Missed menses , unspecified gestational age Ordered: 07/29/2024 [facility] Comment on above: Ordered: 07/29/2024 Neisseria gonorrhoea e DNA [Presence] in Unspecified specimen by EDELMIRA with probe detection Neisseria gonorrhea DNA probe, direct Lab Routine STD exposure Ordered: 09/06/2024 [facility] Comment on above: Ordered: 09/06/2024 Reagin Ab [Presence] in Serum by RPR RPR Lab Routine Missed menses , unspecified gestational age Ordered: 07/29/2024 [facility] Comment on above: Ordered: 07/29/2024 KELSY US Pelvis Limite d Follicles - Follicle Studies Performed KELSY US Pelvis Limited Follicles - Follicle Studies Performed Imaging Routine Female infertility 02/16/2024 7:17 AM EDT [facility] Work Phone: KELSY US Pelvis Limite d Follicles - Follicle Studies Performed KELSY US Pelvis Limited Follicles - Follicle Studies Performed Imaging Routine Female infertility 02/20/2024 9:06 AM EDT [facility] Work Phone: Rubella antibody, IgG Rubella an tibody, IgG Lab Routine Missed menses , unspecified gestational age Ordered: 07/29/2024 [facility] Comment on above: Ordered: 07/29/2024 SURESWAB(R) ADVANCED VAGINITIS PLUS, TMA SURESWAB(R) ADVANCED VAGINITIS PLUS, TMA Pathology and Cytology Routine STD exposure Ordered: 09/06/2024 [facility] Work Phone: Comment on above: Ordered: 09/06/2024 End: 01-28-2024 Surgical pathology study [facility] Work Phone: Comment on above: Once (Lab) for 1 Occurrences starting until 01/28/2024, 1 completed Once (Lab) for 1 Occ urrences starting 01/28/2024 until 01/28/2024 Immunizations Immunization Date Immunization Notes Care Provider Shahid mares 12-20-2009 meningococcal ACWY vaccine, unspecified formulation Princess Rapp [facility] 12-20-2009 tetanus toxoid, reduced diphtheria toxoid, and acellular pertussis vaccine, adsorbed Princess Rapp [facility] 12-20-2009 varicella virus vaccine Princess Rapp [facility] NEGATED: Highlighted row has not occurred!04-06-2024 influenza virus vaccine, unspecified formulation Mallory Jauregui [facility] NEGATED: Highlighted row has not occurred!06-26-2021 influenza virus vaccine, unspecified formulation Leigh Ann Covington [facility] NEGATED: Highlighted row has not occurred!06-26-2021 SARS-CoV-2 (COVID-19) Ad26 vaccine, recombinant Leigh Ann Covington [facility] NEGATED: Highlighted row has not occurred!01-29-2021 influenza virus vaccine, unspecified formulation Leigh Ann Covington [facility] NEGATED: Highlighted row has not occurred!01-29-2021 SARS-CoV-2 (COVID-19) Ad26 vaccine, recombinant Leigh Ann Covington [facility] NEGATED: Highlighted row has not occurred!05-03-2019 influenza virus vaccine, live, attenuated, for intranasal use Leigh Ann Covington [facility] NEGATED: Highlighted row has not occurred!09-30-2018 influenza virus vaccine, unspecified formulation Leigh Ann Covington [facility] Payers Date Payer Category Payer Managed Care (Private) 1.2.8 [id number] 2022 Private Health Insurance [employer] [id number] 2022 Unknown [id number]. 1.13.647.2. [id number] 2022 Unknown [id number] 1997 Unknown [id number] 2.16.840.1.247400.3.579.2. 593 1997 Unknown [id number] 2.16.840.1.238939.3.579.2. 593 1997 Unknown [id number] 2.16.840.1.246056.3.579.2. 727 1997 Unknown [id number] 2.16.840.1.960837.3.579.2. 727 1997 Unknown [id number] 2.16840.1.102819.3.579.2. 727 1997 Unknown [id number] 2.16.840.1.224449.3.579.2. 727 1997 Unknown [id number] 2.16.840.1.149098.3.579.2. 124 1997 Unknown [id number] 2.16.840.1.736742.3.579.2. 1243 1997 Unknown [id number] 2.16.840.1.587634.3.579.2. 1243 1997 Unknown [id number] 2.16.840.1.940703.3.579.2. 1245 1997 Unknown [id number] 2.16.840.1.519565.3.579.2. 124 1997 Unknown [id number] 2.16.840.1.925333.3.579.2. 1245 1997 Unknown [id number] 2.16.840.1.902634.3.579.2. 124 1997 Unknown [id number] 2.16.840.1.505205.3.579.2. 1244 1997 Unknown [id number] 2.16.840.1.520740.3.579.2. 1244 1997 Unknown [id number] 2.16.840.1.324937.3.579.2. 1244 1997 Unknown [id number] 2.16840.1.206948.3.579.2. 1244 1997 Unknown [id number] 2.16.840.1.282993.3.579.2. 1244 1997 Unknown [id number] 2.16840.1.999361.3.579.2. 1244 1997 Unknown [id number] 2.16840.1.330101.3.579.2. 1244 1997 Unknown [id number] 2.840.1.079611.3.579.2. 1244 1997 Unknown [id number] 2.840.1.446711.3.579.2. 1244 1997 Unknown [id number] 2.840.1.689682.3.579.2. 1244 1997 Unknown [id number] 2.16840.1.199057.3.579.2. 1244 1997 Unknown [id number] 2.16840.1.441018.3.579.2. 1244 1997 Unknown [id number] 2.16840.1.939582.3.579.2. 1244 1997 Unknown [id number] 2.16840.1.943159.3.579.2. 1244 1997 Unknown [id number] 2.16840.1.199182.3.579.2. 1244 1997 Unknown [id number] 2.16840.1.789062.3.579.2. 1244 1997 Unknown [id number] 2.16840.1.858979.3.579.2. 1244 1997 Unknown [id number] 2.16840.1.945832.3.579.2. 1244 1997 Unknown [id number] 2.16840.1.214661.3.579.2. 1244 1997 Unknown [id number] 2.16840.1.660613.3.579.2. 1244 1997 Unknown [id number] 2.840.1.405523.3.579.2. 1244 1997 Unknown [id number] 2.840.1.723063.3.579.2. 1244 1997 Unknown [id number] 2.0.1.819838.3.579.2. 1244 1997 Unknown [id number] 2.840.1.220793.3.579.2. 1244 1997 Unknown [id number] 2.840.1.245431.3.579.2. 1244 1997 Unknown [id number] 2.840.1.296556.3.579.2. 1244 1997 Unknown [id number] 2.840.1.122475.3.579.2. 1244 1997 Unknown [id number] 2.840.1.878695.3.579.2. 1244 1997 Unknown [id number] 2.840.1.023270.3.579.2. 1244 1997 Unknown [id number] 2.16840.1.090651.3.579.2. 1244 1997 Unknown [id number] 2.840.1.088695.3.579.2. 1244 1997 Unknown [id number] 2.16.840.1.309581.3.579.2. 1245 1997 Unknown [id number] 2.16.840.1.357232.3.579.2. 1245 1997 Unknown [id number] 2.16.840.1.597841.3.579.2. 1259 1997 Unknown [id number] 2.16.840.1.545613.3.579.2. 9 1997 Unknown [id number] 2.16.840.1.670340.3.579.2. 1259 1997 Unknown [id number] 2.16.840.1.557029.3.579.2. 9 1997 Unknown [id number] 2.16.840.1.407036.3.579.2. 9 1997 Unknown [id number] 2.16.840.1.411860.3.579.2. 9 1997 Unknown [id number] 2.16.840.1.715744.3.579.2. 9 1997 Unknown [id number] 2.16.840.1.825472.3.579.2. 9 1997 Unknown [id number] 2.16.840.1.793700.3.579.2. 9 1997 Unknown [id number] 2.16.840.1.641673.3.579.2. 1258 1997 Unknown [id number] 2.16.840.1.640105.3.579.2. 9 1997 Unknown [id number] 2.16.840.1.869688.3.579.2. 1259 1959 Unknown [id number] 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 Date Type Detail Facility Start: 07-24-2021 End: 03-05-2023 Tobacco smoking status Never smoked tobacco (finding) [facility] Tobacco smoking status Never [facility] Start: 01-28-2024 End: 07-29-2024 Sex Assigned At Female Al [facility] Start: 2023 Tobacco use and exposure Smokeless tobacco non-user [facility] Work Phone: Start: 01-28-2024 End: 06-23-2024 Alcoholic beverage intake Ex-drinker (finding) [facility] Work Phone: Start: 01-28-2024 End: 07-29-2024 History of Social function [facility] Work Phone: Start: 2023 Alcohol Comment Occassionally [facility] Work Phone: Start: 1997 Sex assigned at Not on file [facility] Work Phone: Start: 12-01-2023 End: 10-07-2024 Exposure to SARS-CoV-2 (event) Not sure [facility] Start: 02-23-2024 End: 01-16-2025 Alcoholic beverage intake Current drinker of alcohol (finding) [facility] Work Phone: Start: 03-05-2023 Alcohol Comment Beer 1-2 times per m [facility] Start: 12-18-2023 End: 12-28-2023 Exposure to SARS-CoV-2 (event) Unable to assess [facility] Start: 06-08-2024 [facility] Medical Equipment Procedure Code Equipment Code Equipment Origin al Text Equipment Identifier Dates [id number] Start: 03-01-2024 End: 03-09-2024 Functional Status Date Assessment Result Facility 04-06-2024 Functional Status N/A [facility] 10-02-2023 Functional Status N/A [facility] 08-27-2023 Functional Status N/A [facility] 02-19-2023 Functional Status N/A [facility] Clinical Notes 07-24-2021 to 01-16-2025 Maria M Guerrero, MARGARITO - 01/16/2025 2:50 PM Megan Greer, RAEGAN - 01/03/2025 10:00 AM Max Barbosa, RAEGAN - 12/19/2024 10:00 AM ORION Tarango - 12/06/2024 8:30 AM EDTDischarge InstructionsLaboratory Note Date & Type Note Facility 01-16-2025 History of Present illness Narrative Reason for [...] SYSTEMS Review of Systems: Review of Systems OBJECTIVE Objective: OBGyn Exam Vitals: Estimated body mass index is 40.21 kg/m as calculated from the following: Height as of 09/17/22: 5' 3 . Weight as of this encounter: 227 lb. BP: 110/70 No LMP recorded. Patient is . ASSESSMENT & PLAN ICD-10-CM 1. 33 weeks gestation of ([facility]) Z3A.33 POCT urinalysis dipstick manually resulted 2. Third trimester ([facility]) Z34.93 POCT urinalysis dipstick manually resulted 3. Group B streptococcal infection A49.1 4. resulting from in vitro fertilization in first trimester ([facility]) O09.811 Return OB: Patient presents today for [...] Layo Courtney DO documented in this encounter [facility] 01-03-2025 History of Present illness Narrative Reason [...] nursing note reviewed. Exam conducted with a corporate webmaster present. Vitals: Estimated body mass index is 39.47 kg/m as calculated from the following: Height as of 09/17/22: 5' 3 . Weight as of this encounter: 222 lb 12.8 oz. BP: 118/74 No LMP recorded. Patient is . ASSESSMENT & PLAN ICD-10-CM 1. Third trimester ([facility]) Z34.93 POCT urinalysis dipstick manually resulted 2. 31 weeks gestation of ([facility]) Z3A.31 POCT urinalysis dipstick manually resulted Return [...] Layo Courtney DO documented in this encounter [facility] 12-19-2024 History of Present illness Narrative Reason [...] nursing note reviewed. Exam conducted with a corporate webmaster present. Vitals: Estimated body mass index is 38.76 kg/m as calculated from the following: Height as of 09/17/22: 5' 3 . Weight as of this encounter: 218 lb 12.8 oz. BP: 116/70 No LMP recorded. Patient is . ASSESSMENT & PLAN ICD-10-CM 1. 29 weeks gestation of ([facility]) Z3A.29 POCT urinalysis dipstick manually resulted 2. Third trimester ([facility]) Z34.93 POCT urinalysis dipstick manually resulted 3. [...] Layo Courtney DO documented in this encounter [facility] 12-06-2024 History of Present illness Narrative Reason [...] PLAN ICD-10-CM 1. 27 weeks gestation of ([facility]) Z3A.27 POCT urinalysis dipstick manually resulted 2. Second trimester ([facility]) Z34.92 POCT urinalysis dipstick manually [...] Layo Courtney DO documented in this encounter [facility] 11-08-2024 History of Present illness Narrative Reason [...] ASSESSMENT & PLAN ICD-10-CM 1. Second trimester ([facility]) Z34.92 POCT urinalysis dipstick manually resulted 2. 26 weeks gestation of ([facility]) Z3A.26 POCT urinalysis dipstick manually resulted 3. [...] Layo Courtney DO documented in this encounter [facility] 10-17-2024 History of Present illness Narrative Reason [...] nursing note reviewed. Exam conducted with a corporate webmaster present. Vitals: Estimated body mass index is 35.52 kg/m as calculated from the following: Height as of 09/17/22: 5' 3 . Weight as of this encounter: 200 lb 8 oz. BP: 126/82 No LMP recorded. Patient is . ASSESSMENT & PLAN ICD-10-CM 1. Second trimester ([facility]) Z34.92 POCT urinalysis dipstick manually resulted 2. 20 weeks gestation of ([facility]) Z3A.20 Return OB: Patient presents today for [...] Layo Courtney DO documented in this encounter [facility] 10-11-2024 History of Present illness Narrative Reason [...] Layo Courtney DO documented in this encounter [facility] 09-06-2024 History of Present illness Narrative Reason [...] of: ORION Spence documented in this encounter [facility] 08-08-2024 History of Present illness Narrative Reason [...] nursing note reviewed. Exam conducted with a corporate webmaster present. Vitals: Estimated body mass index is [...] Layo Courtney DO documented in this encounter [facility] 07-29-2024 History of Present illness Narrative Reason [...] screen, urine; Future Nurse Note: Patient declined [employer] to one Pt is an IVF [...] or undercooked meat, and stay away from [facility]. Patient has also been advised to not [...] Marilia Elder MA documented in this encounter [facility] 07-11-2024 History of Present illness Narrative Visit [...] PM documented in this encounter [facility] Work Phone: 06-13-2024 History of Present [...] Preop diagnosis: Infertility Post op diagnosis: Same Sales Team Member: none Depth: 7 cm Curve: anterior Distance [...] AM documented in this encounter [facility] Work Phone: 06-13-2024 Hospital Discharge instructions Tisha Sparks RN - 06/13/2024 10:43 AM EST Images from the original note were not included. [facility] [address] [place] [address] Home Going Instructions after Embryo Transfer: After [...] in : Advil, Motrin, Ibuprofen, Aleve, Excedrin, [place], Sudafed, and Pepto-Bismol. Avoid aspirin unless you [...] AM documented in this encounter [facility] Work Phone: 06-06-2024 History of Present illness Narrative CYCLING NOTE LMP: 05/23/24 Protocol: Programmed FET Lining check: 06/06 Tentative progesterone start: 06/08 Tentative transfer date: 06/[address] Chavarria Here for US and/or lab monitoring; relevant findings reviewed. Patient stayed for nurse visit. Pain is 0/10 and Progesterone teaching completed with patient REEEC sites marked. Team will contact patient later today with results and plan. Zoe Francis 06/06/2024 7:01 AM Called patient with plan. Patient will return tomorrow for e2, p4, and lining check and will start vaginal estrace now and continue BID until further instructed. Message sent to front counter attendant to schedule at 8:45 slot at [facility] for US and labs. ZOE FRANCIS on 06/06/24 at 1:12 PM. documented in this encounter [facility] Work Phone: 04-06-2024 Hospital Discharge instructions [...] provider. Document Revised: 09/09/2021 Document Reviewed: 09/09/2021 [employer] Patient Education 2023 [employer] Dx. Follow Up Care 03/25/2024 14:07:23 With:Mallory Judd Address: When:Within 6 Month(s) [facility] 03-22-2024 History of Present illness Narrative Associated Order(s): Egg Retrieval Pre-Procedure Diagnose(s): Encounter for assisted reproductive fertility cycle Post-Procedure Diagnose(s): Encounter for assisted reproductive fertility cycle Patient ID: Sydney Romero is a 28 y.o. female. Egg Retrieval Date/Time: 03/22/2024 9:39 AM Performed by: Juan Chavarria MD Authorized by: Donya Abernathy APRN-SUPPORT ASSISTANT Consent: Consent obtained: Verbal and written Consent [...] diagnosis: Female infertility Post op diagnosis: Same Sales Team Member: Dr. Warren IV Fluids: 600 cc EBL: 5 cc UOP: Not recorded Specimen: Oocytes Complications: None Number of Oocytes right ovary: 16 Ovarian access (right): Easy Number of Oocytes left ovary: 9 Ovarian access (left): Easy Endometrial thickness: n/a Needle type: Single Additional notes: documented in this encounter [facility] Work Phone: 03-22-2024 Nurse Note Patient discharged to home in stable condition via wheelchair to RIDE HOME: Partner's car. Accompanied by RN. ABREU at time of discharge. Discharge instructions given and concerns addressed. Gisell Michel RN 03/22/24 11:08 AM [facility] Work Phone: 03-22-2024 Nurse Note Patient discharged to home in stable condition via wheelchair to RIDE HOME: Partner's car. Accompanied by RN. ABREU at time of discharge. Discharge instructions given and concerns addressed. Gisell Michel RN 03/22/24 11:08 AM documented in this encounter [facility] Work Phone: 03-22-2024 Hospital Discharge instructions Gisell Michel RN - 03/22/2024 8:45 AM EST Images from the original note were not included. [facility] [address] [place] [address] Home Going Instructions after Egg Retrieval: Activity: [...] 2 weeks following your oocyte retrieval. Call [phone] to speak with a Physician or Nurse if you have any concerns. Gisell Michel 8:45 AM [facility] [address] [place], [place] IVF LAB EMBRYO UPDATE PROTOCOL The [...] biopsied and frozen. Gisell Michel 8:44 AM [facility] [address] [place] [address] Frozen Embryo Transfer Instructions After your egg retrieval, follow up with your IVF nurse within 3-4 days Thursday-Thursday regarding the plan for your frozen embryo transfer (FET) cycle. Your IVF nurse will order and review with you the medications you will be using for the cycle. You will be sent an email from [employer] to fill out your Frozen Embryo Treatment [...] AM documented in this encounter [facility] Work Phone: 03-20-2024 History of Present [...] Arrive 60 minutes prior to procedure at [facility] [address]. Patient verbalizes understanding of plan and location of procedure. Patient scheduled to go to [facility] tomorrow for post trigger labs Krissy Yanes 03/20/2024 11:01 AM documented in this encounter [facility] Work Phone: 03-19-2024 History of Present [...] AM documented in this encounter [facility] Work Phone: 03-17-2024 History of Present [...] PM documented in this encounter [facility] Work Phone: 03-15-2024 History of Present [...] no further questions. Transferred to the front counter attendant to schedule appt for 03/17. Allyssa Robles 03/15/24 1:27 PM documented in this encounter [facility] Work Phone: 03-09-2024 History of Present [...] Yes; PGT-M Test Ready: No ; Company: [employer] PGT order scanned into [employer], confirmed by: LORI on Plan to freeze: [...] on 03/09 by delano On site at [facility] Additional details: Allyssa Robles 03/09/2024 7:50 AM TC to pt to confirm today's plan; LM; will send [facility] message. Allyssa Robles 03/09/24 2:02 PM Pt called back to confirm plan; Pt has all meds and all questions answered. She plans to purchase FET meds before the end of the year (they were ordered back in February) and will call [facility] to have them filled as she has met deductible and REECE needs a PA. Allyssa Robles 03/09/24 2:33 PM documented in this encounter [facility] Work Phone: 02-23-2024 Nurse Note Patient discharged to home in stable condition via wheelchair accompanied by this RN to RIDE HOME: Partner's car. Discharge instructions given and concerns addressed. Patient verbalizes understanding of all information provided and is agreeable. [facility] 02-23-2024 Nurse Note Patient discharged to [...] bleeding. documented in this encounter [facility] Work Phone: 02-23-2024 Nurse Note Patient up to bathroom independently, no complaints of pain or dizziness, able to void without issue, reports scant amount of bleeding. [facility] Work Phone: 02-23-2024 History of Present [...] diagnosis: Female infertility Post op diagnosis: Same Sales Team Member: none IV Fluids: 500 cc EBL: 5 cc UOP: Not recorded Specimen: Oocytes Complications: None Number of Oocytes right ovary: 17 Ovarian acc ss (right): Easy Number of Oocytes left ovary: 13 Ovarian access (left): Easy Endometrial thickness: n/a Needle type: Single Additional notes: documented in this encounter [facility] Work Phone: 02-23-2024 Hospital Discharge instructions Donya Rosas RN - 02/23/2024 7:23 AM EDT Images from the original note were not included. [address] [place] [address] Home Going Instructions after Egg Retrieval: Activity: [...] 2 weeks following your oocyte retrieval. Call [phone] to speak with a Physician or Nurse if you have any concerns. DONYA ROSAS 7:23 AM [facility] [address] [place], [place] IVF LAB EMBRYO UPDATE PROTOCOL The [...] number of embryos biopsied and frozen. DONYA Zamora JANNETHMARK 7:23 AM [facility] [address] [place], [place] IVF LAB EMBRYO UPDATE PROTOCOL The [...] biopsied and frozen. DONYA ROSAS 7:23 AM [facility] [address] [place] [address] Frozen Embryo Transfer Instructions After your egg retrieval, follow up with your IVF nurse within 3-4 days Thursday-Thursday regarding the plan for your frozen embryo transfer (FET) cycle. Your IVF nurse will order and review with you the medications you will be using for the cycle. You will be sent an email from [email or web address] to fill out your Frozen Embryo Treatment [...] AM documented in this encounter [facility] Work Phone: 02-21-2024 History of Present [...] AM documented in this encounter [facility] Work Phone: 02-20-2024 History of Present [...] RN documented in this encounter [facility] Work Phone: 02-18-2024 History of Present [...] RN documented in this encounter [facility] Work Phone: 02-16-2024 History of Present [...] Will look into getting insulin syringes from [facility]. Team will contact patient later today with results and plan. Krissy Yanes 02/16/2024 7:27 AM LM with patient with plan to start Cetrotide today, drop FSH to 225 units and continue Menopur 75 units. Patient is already scheduled for 02/17 for repeat follicle scan and e2. Krissy Yanes 02/16/24 1:34 PM documented in this encounter [facility] Work Phone: 02-09-2024 History of Present [...] Yes; PGT-M Test Ready: No /A; Company: [employer] PGT order scanned into [employer], confirmed by: LORI on 02/09/2024 Plan to freeze: embryos [employer] forms/out waiver complete: Yes Does patient have medications onhand? Yes Pharmacy: [facility] Boarding pass signed off: Yes LORETTA on 02/05/2024 Date of Female STDs: 2023 Date of Male STDs: 2023 Medically complex on boarding pass: no If indicated, is PAT consult complete? N/A SPERM: partner [employer] with Frozen Backup Number of vials confirmed: 1 on 02/09/24 by LORETTA Additional details: Allyssa Robles 02/09/2024 7:34 AM Betizita Warren 02/09/24 12:44 PM TC to inge Degroot answered; confirmed plan for meds to start on 02/12 as per calendar and return on 02/15 as scheduled; no further questions. Allyssa Robles 02/09/24 1:16 PM documented in this encounter [facility] Work Phone: 01-28-2024 Nurse Note Patient discharged to home in stable condition via wheelchair to RIDE HOME: Partner's car. Discharge instructions given and concerns addressed. [facility] Work Phone: 01-28-2024 Nurse Note Patient discharged to home in stable condition via wheelchair to RIDE HOME: Partner's car. Discharge instructions given and concerns addressed. documented in this encounter [facility] Work Phone: 01-28-2024 History of Present [...] complications documented in this encounter [facility] Work Phone: 01-28-2024 Hospital Discharge instructions Ira Lopez RN - 01/28/2024 8:20 AM EDT Images from the original note were not included. [facility] [address] [place] [address] Home Going Instructions after Polypectomy: Activity: We [...] AM documented in this encounter [facility] Work Phone: 01-14-2024 History of Present [...] nursing note reviewed. Exam conducted with a corporate webmaster present. Vitals: Estimated body mass index is [...] of: ORION Spence documented in this encounter [facility] 12-28-2023 History of Present illness Narrative Visit [...] EVALUATION / TREATMENT Saw KELSY physician in [facility] Dr. Vergara Was told needed IVF, oligospermia Hysterosalpingogram: 2023, bilateral tubal patency Saline Infused Sonography: 07/2023, normal uterine cavity small uterine polyp noted (not removed as of yet) [employer] Pelvic Ultrasound: 07/2023 [facility] 2.01 Relationship Status: x 2 years OB Hx G0 OB History 0 Para 0 Term 0 0 AB 0 Living 0 SAB 0 IAB 0 Ectopic 0 Multiple 0 Live Births 0 AIRPLANE [employer]TAIN HISTORY History of STD or PID: No [...] Plan Update: PLAN PENDING follow up with JB Comer follow up testing, recommendations from genetics Lead [...] AM documented in this encounter [facility] Work Phone: 2023 History of Present illness Narrative Visit Type: In Person NEW FERTILITY PATIENT VISIT Referred by: insurance referral Accompanied today by: spouse Sydney Romero is a 27 y.o. female who presents with Infertility TTC x 2 years PRIOR EVALUATION / TREATMENT Saw KELSY physician in [facility] Dr. 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 Meyer [phone] Recommend repeat SA with 48-72 hours abstinence [...] AM documented in this encounter [facility] Work Phone: 2023 Instructions SMITH Mina - 2023 8:45 AM EDT Recommend Male Vitamins Discussed as follows: Co-Q10 200 mg daily L-Carnitine 200-500 mg daily Vitamin C 500 mg daily Recommend Consult with Dr. Meyer [phone] Recommend repeat SA with 48-72 hours abstinence Recommend Female Vitamins: vitamin Vitamin D (total of 2,000 international units daily) CoQ10 600 mg daily documented in this encounter [facility] Work Phone: 10-02-2023 Hospital Discharge instructions [...] food choices, such as grocery stores and [employer] markets. What are the signs or symptoms? [...] and how much exercise you get. Take umrc-oak-iysiqsi and prescription medicines only as told by [...] provider. Document Revised: 11/26/2021 Document Reviewed: 11/26/2021 [employer] Patient Education 2022 Hy[employer] Dx. 10/02/2023 12:54:15 BMI for Adults BMI for [...] numbers. This can be done either in [place]ian (U.S.) or metric measurements. Note that charts and online BMI calculators are available to help you find your BMI quickly and easily without having to do these calculations yourself. To calculate your BMI in Croatian (U.S.) measurements: 1.Measure your weight in pounds [...] Centers for Disease Control and Prevention: www.cdc.gov [place] Heart Association: www.heart.org National Heart, Lung, and Blood [place]: www.nhlbi.nih.gov Summary Body mass index (BMI) is a number that is calculated from a person's weight and height. BMI may help estimate how much of a person's weight is composed of fat. BMI can help identify those who may be at higher risk for certain medical problems. BMI can be measured using Croatian measurements or metric measurements. BMI charts are used to identify whether you are underweight, normal weight, overweight, or obese. This information is not intended to replace advice given to you by your health care provider. Make sure you discuss any questions you have with your health care provider. Document Revised: 01/11/2020 Document Reviewed: 11/18/2019 [employer] Patient Education 2022 [employer] Dx. 10/02/2023 12:54:13 Migraine Headache Migraine Headache A [...] Follow these instructions at home: Medicines Take ihch-utb-gykvquf and prescription medicines only as told by your health care provider. Ask your health care provider if the medicine prescribed to you: ?Requires you to avoid driving or using heavy machinery. ?Can cause constipation. You may need to take these actions to prevent or treat constipation: ?Drink enough fluid to keep your urine pale yellow. ?Take fzil-crd-tcxmrpp or prescription medicines. ?Eat foods that are [...] provider. Document Revised: 08/12/2019 Document Reviewed: 06/02/2019 [employer] Patient Education 2022 [employer] 10/02/2023 12:54:11 Form - Headache Record [...] these instructions at home: Take or apply peex-uaq-inxiddx and prescription medicines only as told by your health care provider. Use creams or ointments to moisturize your skin. Do not use lotions. Learn what triggers or irritates your symptoms so you can avoid these things. Treat symptom flare-ups quickly. Do not scratch your skin. This can make your rash worse. Keep all follow-up visits. This is important. Where to find more information [place] [employer] Dermatology: aad.org National Eczema Association: [...] provider. Document Revised: 01/28/2021 Document Reviewed: 01/28/2021 [employer] Patient Education 2022 [employer] Dx. 10/02/2023 12:54:06 BMI for Adults BMI for [...] numbers. This can be done either in [place]ian (U.S.) or metric measurements. Note that charts and online BMI calculators are available to help you find your BMI quickly and easily without having to do these calculations yourself. To calculate your BMI in Croatian (U.S.) measurements: 1.Measure your weight in pounds [...] Centers for Disease Control and Prevention: www.cdc.gov [place] [employer] Association: www.heart.org National Heart, Lung, and Blood [place]: www.nhlbi.nih.gov Summary Body mass index (BMI) is a number that is calculated from a person's weight and height. BMI may help estimate how much of a person's weight is composed of fat. BMI can help identify those who may be at higher risk for certain medical problems. BMI can be measured using Croatian measurements or metric measurements. BMI charts are used to identify whether you are underweight, normal weight, overweight, or obese. This information is not intended to replace advice given to you by your health care provider. Make sure you discuss any questions you have with your health care provider. Document Revised: 01/11/2020 Document Reviewed: 11/18/2019 [employer] Patient Education 2022 Hy[employer] Dx. Follow Up Care 09/22/2023 13:18:17 With:Princess Dumont [facility], [facility] Address: Deborah Schrader, [address] [address]- Business (1) When:07/08/2023 Comments:for f/u [facility] 08-27-2023 Hospital Discharge instructions Patient [...] 1.Identify the foods that contain carbohydrates: Rice. Webster. Milk. Strawberries. 2.Calculate how many servings you [...] and snacks. Where to find more information [place] [employer] Association: diabetes.org Centers for Disease Control [...] provider. Document Revised: 11/21/2020 Document Reviewed: 11/21/2020 [employer] Patient Education 2022 [employer] 08/27/2023 19:11:56 Calorie Counting for Weight [...] provider. Document Revised: 05/31/2020 Document Reviewed: 05/31/2020 [employer] Patient Education 2022 [employer] Dx. 08/27/2023 19:11:54 Exercising to Lose Weight Exercising [...] health care provider or diet and nutrition assistant (dietitian). This may include: ?Eating fewer calories. [...] provider. Document Revised: 06/16/2021 Document Reviewed: 06/16/2021 [employer] Patient Education 2022 [employer] Dx. 08/27/2023 19:11:53 BMI for Adults BMI for [...] numbers. This can be done either in Croatian (U.S.) or metric measurements. Note that charts and online BMI calculators are available to help you find your BMI quickly and easily without having to do these calculations yourself. To calculate your BMI in [place]ian (U.S.) measurements: 1.Measure your weight in pounds [...] Centers for Disease Control and Prevention: www.cdc.gov [place] [employer]: www.heart.org National Heart, Lung, and Blood [place]: www.nhlbi.nih.gov Summary Body mass index (BMI) is a number that is calculated from a person's weight and height. BMI may help estimate how much of a person's weight is composed of fat. BMI can help identify those who may be at higher risk for certain medical problems. BMI can be measured using Croatian measurements or metric measurements. BMI charts are used to identify whether you are underweight, normal weight, overweight, or obese. This information is not intended to replace advice given to you by your health care provider. Make sure you discuss any questions you have with your health care provider. Document Revised: 01/11/2020 Document Reviewed: 11/18/2019 [employer] Patient Education 2022 [employer] Dx. 08/27/2023 19:11:48 Musculoskeletal Pain Musculoskeletal Pain Musculoskeletal [...] mouth or applied to the skin. Take zxru-ygw-tzxduyc and prescription medicines only as told by [...] provider. Document Revised: 08/23/2020 Document Reviewed: 08/01/2020 [employer] Patient Education 2022 [employer] Dx. 08/27/2023 19:05:09 Cervicogenic Headache Cervicogenic Headache In [...] therapist. Follow these instructions at home: Take ghow-cpp-pyqpxsk and prescription medicines only as told by [...] provider. Document Revised: 10/24/2021 Document Reviewed: 10/24/2021 [employer] Patient Education 2022 [employer] 08/27/2023 19:05:07 Form - Headache Record [...] provider. Document Revised: 09/18/2021 Document Reviewed: 09/18/2021 [employer] Patient Education 2022 [employer] Inc. 08/27/2023 19:05:07 [...] Follow these instructions at home: Medicines Take yxsp-ggw-upjjpyj and prescription medicines only as told by [...] for Headache and Migraine Patients (CHAMP): headachemigraine.org [place] Migraine Foundation: americanmigrainefoundation.org National Headache Foundation: headaches.org [...] provider. Document Revised: 06/06/2020 Document Reviewed: 06/06/2020 [employer] Patient Education 2022 [employer]. 08/27/2023 19:05:03 BMI for Adults BMI for [...] numbers. This can be done either in Croatian (U.S.) or metric measurements. Note that charts and online BMI calculators are available to help you find your BMI quickly and easily without having to do these calculations yourself. To calculate your BMI in Croatian ([place].) measurements: 1.Measure your weight in pounds [...] Centers for Disease Control and Prevention: www.cdc.gov [place] Heart Association: www.heart.org National Heart, Lung, and Blood [place]: www.nhlbi.nih.gov Summary Body mass index (BMI) is a number that is calculated from a person's weight and height. BMI may help estimate how much of a person's weight is composed of fat. BMI can help identify those who may be at higher risk for certain medical problems. BMI can be measured using Croatian measurements or metric measurements. BMI charts are used to identify whether you are underweight, normal weight, overweight, or obese. This information is not intended to replace advice given to you by your health care provider. Make sure you discuss any questions you have with your health care provider. Document Revised: 01/11/2020 Document Reviewed: 11/18/2019 [employer] Patient Education 2022 [employer]. 08/27/2023 19:05:01 Health Maintenance, Female Health Maintenance, [...] provider. Document Revised: 09/09/2021 Document Reviewed: 09/09/2021 [employer] Patient Education 2022 [employer]. Follow Up Care 08/17/2023 08:42:02 With:Princess Dumont FAM, [facility] Address: [address], [facility] [address] [address]- When:Within 6 Week(s) Comments:weight loss and headaches [facility] 02-19-2023 Evaluation + Plan note Future Scheduled TestsU Protein/Creat Ratio 02/19/23HgbA1c 02/19/23Microalbumin Level Urine 02/19/23TSH With T4fr Reflex 02/19/23Vitamin D 25 Hydroxy 02/19/23CBC w/ Auto Diff 02/19/23Comprehensive Metabolic Panel 02/19/23Lipid Panel 02/19/23XR Spine Cervical 4 or 5 Views 02/19/23 [facility] 02-19-2023 Hospital Discharge instructions Patient [...] therapist. Follow these instructions at home: Take curg-gvh-qbhmneu and prescription medicines only as told by [...] provider. Document Revised: 10/24/2021 Document Reviewed: 10/24/2021 [employer] Patient Education 2022 [employer]. 02/19/2023 08:34:09 Migraine Headache Migraine Headache A [...] Follow these instructions at home: Medicines Take xetm-dvl-eblnjtd and prescription medicines only as told by your health care provider. Ask your health care provider if the medicine prescribed to you: ?Requires you to avoid driving or using heavy machinery. ?Can cause constipation. You may need to take these actions to prevent or treat constipation: ?Drink enough fluid to keep your urine pale yellow. ?Take fsvs-vzm-lbaelwi or prescription medicines. ?Eat foods that are [...] Document Reviewed: 06/02/2019 Elsevier Patient Education 2022 Elsevier Inc. 02/19/2023 08:34:03 Form - Headache Record [...] provider. Document Revised: 09/18/2021 Document Reviewed: 09/18/2021 [employer] Patient Education 2022 [employer]. 02/19/2023 01:02:45 General Headache Without Cause [...] help with your condition: Managing pain Take ooat-jov-gcbasoi and prescription medicines only as told by [...] provider. Document Revised: 09/18/2021 Document Reviewed: 09/18/2021 [employer] Patient Education 2022 [employer]. 02/19/2023 01:02:42 Form - Headache Record Form [...] therapist. Follow these instructions at home: Take nkhk-oxt-qpghjei and prescription medicines only as told by [...] provider. Document Revised: 10/24/2021 Document Reviewed: 10/24/2021 [employer] Patient Education 2022 [employer]. 02/19/2023 01:02:35 Chronic Migraine Headache Chronic Migraine [...] Follow these instructions at home: Medicines Take uivk-hfi-aebqsni and prescription medicines only as told by [...] for Headache and Migraine Patients (CHAMP): headachemigraine.org [place] Migraine Foundation: americanmigrainefoundation.org National Headache Foundation: headaches.org [...] provider. Document Revised: 06/06/2020 Document Reviewed: 06/06/2020 Else[employer] Patient Education 2022 [employer]. Follow Up Care 02/17/2023 08:10:14 With:Princess Dumont FAM, MED Address: [address], [employer] [address] [employer] [address] [place] [phone]- When:Within 1 Month(s) Comments:headaches. neck pain With:Princess Dumont FAM, MED Address: [address], [employer] [address] [employer] [address] [place] [phone]- When:Within 1 Year(s) Comments:annual wellness, anxiety/ depression [facility] 07-24-2021 Hospital Discharge instructions Patient [...] height. This can be done either in Croatian ([place].S.) or metric measurements. Note that charts are available to help you find your BMI quickly and easily without having to do these calculations yourself. To calculate your BMI in Croatian (U.S.) measurements, your health care provider will: [...] medical problems. BMI can be measured using Croatian measurements or metric measurements. To interpret your [...] 12/30/2004 Document Revised: 04/02/2018 Document Reviewed: 03/03/2018 [employer] Patient Education 2020 [employer]. 07/24/2021 17:16:58 Health Maintenance, Female Health Maintenance, [...] 11/03/2011 Document Revised: 04/13/2019 Document Reviewed: 04/13/2019 [employer] Patient Education 2020 [employer]. Follow Up Care 06/26/2021 18:00:45 With:Leigh Ann Covington CNP Address: When: only if needed [facility] Evaluation + Plan note Future Appointments Appointment Date:10/03/2021 01:00:00 PM Scheduled Provider:Naya ABDI Location:[facility] Appointment Type:ILENE DAVID [facility] Evaluation + Plan note Future Appointments Appointment Date:03/25/2023 07:00:00 AM Scheduled Provider:Princess Dumont Location:[facility] Appointment Type: Open Future Scheduled TestsU Protein/Creat Ratio 02/19/23HgbA1c 02/19/23Microalbumin Level Urine 02/19/23TSH With T4fr Reflex 02/19/23Vitamin D 25 Hydroxy 02/19/23CBC w/ Auto Diff 02/19/23Comprehensive Metabolic Panel 02/19/23Lipid Panel 02/19/23XR Spine Cervical 4 or 5 Views 02/19/23 [facility] Evaluation + Plan note Future Appointments Appointment Date:10/21/2023 07:20:00 AM Scheduled Provider:Princess Dumont Location:[facility] Appointment Type: Open Future Scheduled TestsTSH With T4fr Reflex 02/19/23Vitamin D 25 Hydroxy 02/19/23CBC w/ Auto Diff 02/19/23Comprehensive Metabolic Panel 02/19/23Lipid Panel 02/19/23XR Spine Cervical 4 or 5 Views 02/19/23 [facility] Evaluation + Plan note Future Appointments Appointment Date:10/05/2024 07:00:00 AM Scheduled Provider:Mallory Judd Location:[facility] Appointment Type: Open [facility] Evaluation note Diagnosis Endometrial polyp Polyp of corpus uteri documented in this encounter [facility] Work Phone: Evaluation note* Diagnosis Pre-procedure lab exam Pre-procedural laboratory examination Female infertility Female infertility of unspecified origin documented in this encounter [facility] Work Phone: Evaluation note* Diagnosis Female infertility Female infertility of unspecified origin documented in this encounter [facility] Work Phone: Evaluation note* Diagnosis Female infertility Female infertility of unspecified origin documented in this encounter [facility] Work Phone: Evaluation note* Diagnosis Encounter for assisted reproductive fertility cycle Encounter for assisted reproductive fertility procedure cycle documented in this encounter [facility] Work Phone: [phone] note* Diagnosis Female infertility Female infertility of unspecified origin Pre-procedure lab exam Pre-procedural laboratory examination documented in this encounter [facility] Work Phone: [phone] note* Diagnosis Female infertility Female infertility of unspecified origin documented in this encounter [facility] Work Phone: [phone] note* Diagnosis Female infertility Female infertility of unspecified origin documented in this encounter [facility] Work Phone: [phone] note* Diagnosis Female infertility Female infertility of unspecified origin documented in this encounter [facility] Work Phone: [phone] note* Diagnosis Encounter for assisted reproductive fertility cycle Encounter for assisted reproductive fertility procedure cycle documented in this encounter [facility] Work Phone: [phone] note* Diagnosis Encounter for assisted reproductive fertility cycle Encounter for assisted reproductive fertility procedure cycle documented in this encounter [facility] Work Phone: [phone] note* Diagnosis Well woman exam with routine gynecological exam Routine gynecological examination documented in this encounter [facility]* Diagnosis Encounter for screening for other viral diseases- Primary Encounter for Rh blood typing Encounter for blood typing Screening for STDs (sexually transmitted diseases) Screening examination for venereal disease Genetic screening Other genetic screening Fertility testing Female infertility associated with male factors Female infertility of other specified origin documented in this encounter [facility] Work Phone: [phone] note* Diagnosis Fertility testing [Z31.41]- Primary Fertility testing 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 [Z31.81, N97.8] documented in this encounter [facility] Work Phone: [phone] note* Diagnosis Endometrial polyp Polyp of corpus uteri documented in this encounter [facility] Work Phone: [phone] note* Diagnosis Female infertility Female infertility of unspecified origin documented in this encounter [facility] Work Phone: [phone] note* Diagnosis Encounter for assisted reproductive fertility cycle Encounter for assisted reproductive fertility procedure cycle documented in this encounter [facility] Work Phone: Evaluation note* Diagnosis Encounter for assisted reproductive fertility cycle Encounter for assisted reproductive fertility procedure cycle Encounter for test, result unknown documented in this encounter [facility] Work Phone: Evaluation note* Diagnosis Encounter to determine viability of , single or unspecified fetus documented in this encounter [facility] Work Phone: Evaluation note* Diagnosis Missed [...] (HHS-HCC) documented in this encounter [facility] Work Phone: Evaluation note* Diagnosis Second [...] from in vitro fertilization in third trimester (HHS-HCC) [facility] Diagnosis 33 weeks gestation of ([facility]) Third trimester ([facility]) state, incidental Group B streptococcal infection Streptococcus infection in conditions classified elsewhere and of unspecified site, group B resulting from in vitro fertilization in first trimester ([facility]) [facility] Narrative No data available for this section [facility] Hospital Discharge instructions No data available for this section [facility] Progress note No data available for this section [facility] Reason for referral (narrative)* Consultation (Routine) - Authorized Specialty Diagnoses / Procedures Referred By Alejandro hyatt Referred To Contact Genetics Diagnoses Genetic screening Trish Thorpe APRN-SUPPORT ASSISTANT [address] [place] [address] Referral ID Status Reason Start Date Expiration Date Visits Requested Visits Authorized [id number] Authorized Specialty Services Required 2023 12/10/2024 1 1 [facility] Work Phone: Recuzn for visit Narrative* Imaging (Routine) - Authorized Specialty Diagnoses / Procedures Referred By Aeljandro hyatt Referred To Contact Radiology Diagnoses Female infertility Procedures KELSY US Pelvis Limited Follicles - Follicle Studies Performed America Chavez BIOMEDICAL EQUIPMENT SUPPORT SPECIALIST-SUPPORT ASSISTANT [address] [place] [address] Phone: tel: fax: Referral ID Status Reason Start Date Expiration Date Visits Requested Visits Authorized [id number] Authorized Perform Procedure 02/02/2024 02/01/2025 8 8 [facility] Work Phone: Redjkv for visit Narrative* Imaging (Routine) - Pending Review Specialty Diagnoses / Procedures Referred By Alejandro hyatt Referred To Contact Radiology Diagnoses Female infertility Procedures KELSY US Pelvis Limited Follicles - Follicle Studies Performed America Chavez BIOMEDICAL EQUIPMENT SUPPORT SPECIALIST-SUPPORT ASSISTANT [address] [place] [address] Phone: tel: fax: Referral ID Status Reason Start Date Expiration Date Visits Requested Visits Authorized [id number] Pending Review Perform Procedure 02/02/2024 02/01/2025 8 8 [facility] Work Phone: Reason for visit Narrative* Procedure (Routine) - Authorized Specialty Diagnoses / Procedures Referred By Contac t Referred To Contact Reproductive Endocrinology and Infertility Diagnoses Encounter for assisted reproductive fertility cycle Procedures Egg Retrieval WI FOLLICLE PUNCTURE OOCYTE RETRIEVAL ANY METHOD CHG US GUIDANCE ASPIRATION OVA IMG S&I CHG OOCYTE ID FROM FOLLICULAR FLU CHG BX OOCYTE POLR BDY/AMBER BLST MICROTQ <= 5 AMBER CHG BX OOCYTE MICROTQ >5 AMBER CHG UNLISTED MOLECULAR PATHOLOGY PROCEDURE CHG CYTOGENETICS&MOLEC CYTOGENETICS INTERP&REP Beth Warren MD [address] [place] [address] Phone: tel: fax: Referral ID Status Reason Start Date Expiration Date V isits Requested Visits Authorized [id number] Authorized 01/27/2024 01/26/2025 1 1 [facility] Work Phone: Rejnht for visit Narrative* Imaging (Routine) - Authorized Specialty Diagnoses / Procedures Referred By Contac t Referred To Contact Radiology Diagnoses Female infertility Procedures KELSY US Pelvis Limited Follicles - Follicle Studies Performed Donya Abernathy, BIOMEDICAL EQUIPMENT SUPPORT SPECIALIST-SUPPORT ASSISTANT [address] [facility], [address], [facility] [address] [place] [address] Phone: tel: fax: Referral ID Status Reason Start Date Expiration Date Visits Requested Visits Authorized [id number] Authorized Perform Procedure 03/01/2025 8 8 [facility] Work Phone: reason for visit Narrative* Procedure (Routine) - Authorized Specialty Diagnoses / Procedures Referred By Contac t Referred To Contact Reproductive Endocrinology and Infertility Diagnoses Encounter for assisted reproductive fertility cycle Procedures Egg Retrieval WI FOLLICLE PUNCTURE OOCYTE RETRIEVAL ANY METHOD CHG US GUIDANCE ASPIRATION OVA IMG S&I CHG OOCYTE ID FROM FOLLICULAR FLU CHG BX OOCYTE POLR BDY/AMBER BLST MICROTQ <= 5 AMBER CHG BX OOCYTE MICROTQ >5 AMBER CHG UNLISTED MOLECULAR PATHOLOGY PROCEDURE CHG CYTOGENETICS&MOLEC CYTOGENETICS INTERP&REP Donya Abernathy Melly, BIOMEDICAL EQUIPMENT SUPPORT SPECIALIST-SUPPORT ASSISTANT [address] [facility], [address] [place] [address] Phone: tel: fax: Referral ID Status Reason Start Date Expiration Date V isits Requested Visits Authorized [id number] Authorized 03/01/2024 03/01/2025 1 0 [facility] Work Phone: Reshnk for visit Narrative* Imaging (Routine) - Authorized Specialty Diagnoses / Procedures Referred By Alejandro hyatt Referred To Contact Radiology Diagnoses Female infertility Procedures KELSY US Endometrial Lining Check Donya Abernathy Melly, BIOMEDICAL EQUIPMENT SUPPORT SPECIALIST-SUPPORT ASSISTANT [address] [facility], [place] [address] Phone: tel: fax: Referral ID Status Reason Start Date Expiration Date Visits Requested Visits Authorized [id number] Authorized Perform Procedure 02/23/2025 5 5 [facility] Work Phone: reason for visit Narrative* Procedure (Routine) - Authorized Specialty Diagnoses / Procedures Referred By Alejandro hyatt Referred To Contact Reproductive Endocrinology and Infertility Diagnoses Encounter for assisted reproductive fertility cycle Procedures Embryo Transfer WI EMBRYO TRANSFER INTRAUTERINE CHG ULTRASONIC GUIDANCE INTRAOPERATIVE CHG THAWING CRYOPRESERVED EMBRYO CHG ASSTD EMBRYO HATCHING MICROTQS ANY METH CHG PREPJ EMBRYO TR Juan Chavarria MD [address] [place] [address] Phone: tel: fax: Referral ID Status Reason Start Date Expiration Date V isits Requested Visits Authorized [id number] Authorized 06/10/2024 06/10/2025 1 1 [facility] Work Phone: reason for visit Narrative* Imaging (Routine) - Authorized Specialty Diagnoses / Procedures Referred By Alejandro hyatt Referred To Contact Radiology Diagnoses ([facility]) Procedures US OB detail anatomy Layo Courtney, [address] [facility] [address], [place] [address] Phone: tel: fax: Referral ID Status Reason Start Date Expiration Date Visits Requested Visits Authorized [id number] Authorized Perform Procedure 08/15/2024 08/15/2025 1 1 [facility] Work Phone: Summary Purpose Family History [...] polyp Procedures Polypectomy Juan Chavarria MD [address] [facility] [address], [facility] [address] [place] [address] [address] [place] [address] Referral ID Status Reason Start Date Expiration Date V isits Requested Visits Authorized [id number] Authorized 01/25/2024 01/24/2025 1 1 Additional Source Comments INFORMATION SOURCE (unrecogn ized section and content) DATE CREATED AUTHOR 08/01/2022 [facility] DATE CREATED AUTHOR AUTHOR'S ORGANIZ ATION 04/04/2024 [facility] DATE CREATED AUTHOR AUTHOR'S ORGANIZ ATION 06/15/2024 [facility] DATE CREATED AUTHOR AUTHOR'S ORGANIZ ATION 07/02/2024 [facility] DATE CREATED AUTHOR AUTHOR'S ORGANIZ ATION 07/14/2024 [facility] DATE CREATED AUTHOR AUTHOR'S ORGANIZ ATION 10/11/2024 [facility] DATE CREATED AUTHOR AUTHOR'S ORGANIZ ATION 01/17/2025 [facility] d[facility] Specialists EPIC Patient Care team informatio n (unrecognized section and content) Environmental Technology Professor Relationship Specialty Start Date End Date Allyssa Robles RN Registered Nurse Reproductive Endocrinology and Infertility 12/25/23 Environmental Technology Professor Relationship Specialty Start Date End Date Allyssa Robles RN Registered Nurse Reproductive Endocrinology and Infertility 12/25/23 Environmental Technology Professor Relationship Specialty Start Date End Date Allyssa Robles RN Registered Nurse Reproductive Endocrinology and Infertility 12/25/23 Environmental Technology Professor Relationship Specialty Start Date End Date Allyssa Robles RN Registered Nurse Reproductive Endocrinology and Infertility 12/25/23 Environmental Technology Professor Relationship Specialty Start Date End Date Allyssa Robles RN Registered Nurse Reproductive Endocrinology and Infertility 12/25/23 Environmental Technology Professor Relationship Specialty Start Date End Date Allyssa Robles RN Registered Nurse Reproductive Endocrinology and Infertility 12/25/23 Environmental Technology Professor Relationship Specialty Start Date End Date Allyssa Robles RN Registered Nurse Reproductive Endocrinology and Infertility 12/25/23 Environmental Technology Professor Relationship Specialty Start Date End Date Allyssa Robles RN Registered Nurse Reproductive Endocrinology and Infertility 12/25/23 Environmental Technology Professor Relationship Specialty Start Date End Date Allyssa Robles RN Registered Nurse Reproductive Endocrinology and Infertility 12/25/23 Environmental Technology Professor Relationship Specialty Start Date End Date Ginger Torres LPN Licensed Practical Nurse 12/10/23 Environmental Technology Professor Relationship Specialty Start Date End Date Allyssa Robles RN Registered Nurse Reproductive Endocrinology and Infertility 12/25/23 Environmental Technology Professor Relationship Specialty Start Date End Date Allyssa Robles RN Registered Nurse Reproductive Endocrinology and Infertility 12/25/23 Environmental Technology Professor Relationship Specialty Start Date End Date Allyssa Robles RN Registered Nurse Reproductive Endocrinology and Infertility 12/25/23 Environmental Technology Professor Relationship Specialty Start Date End Date Allyssa Robles RN Registered Nurse Reproductive Endocrinology and Infertility 12/25/23 Environmental Technology Professor Relationship Specialty Start Date End Date Allyssa Robles RN Registered Nurse Reproductive Endocrinology and Infertility 12/25/23 Reason for Visit (unrecogniz ed section and content) Specialty Diagnoses / Procedures Referred By Alejandro t Referred To Contact Diagnoses Endometrial polyp Procedures Polypectomy Juan Chavarria MD [address] [place] [address], [address] [address] [address] [place] [address] Referral ID Status Reason Start Date Expiration Date V isits Requested Visits Authorized [id number] Authorized 01/25/2024 01/24/2025 1 1 Specialty Diagnoses / Procedures Referred By Alejandro hyatt Referred To Contact Radiology Diagnoses Female infertility Procedures KELSY US Pelvis Limited Follicles - Follicle Studies Performed America Chavez, BIOMEDICAL EQUIPMENT SUPPORT SPECIALIST-SUPPORT ASSISTANT [address] [place] [address] Referral ID Status Reason Start Date Expiration Date Visits Requested Visits Authorized [id number] Authorized Perform Procedure 02/02/2024 02/01/2025 8 8 [...] BE BASED ON THE PRIMARY CLINICAL RECORDS. [employer] provides no warranty or guarantee of the accuracy or completeness of information in this document.
[2025-01-20 16:02] VITALS: BP 121/73; PULSE 94
== END 2025-01-20 16:21 | disposition home or self-care (01) ==
LOC: FBCO 15:54 → FBC 15:55
PROVIDERS: Visit Provider Obstetrics & Gynecology
DX: O26.893 Other specified pregnancy related conditions, third trimester (principal); Z3A.34 34 weeks gestation of pregnancy
CPT/HCPCS: 59025

== ENCOUNTER 2025-01-24 16:03 | Outpatient (OUT) | payer OTHER, SELFPAY ==
--- OUTSIDE RECORDS SUMMARY | 2025-01-16 14:50 | XMS_ITS | Encounter Summary ---
Author Organization [facility] Address [address] [place] [address] Care Team Providers Care Ecological Modeler Name Role Phone Unavailable Primary Care Provider Unavailabl e Reason for Visit * Reason Comments Routine Visit Encounter Details Date Type Department Care Team (Latest Contact Info) Description 01/16/2025 2:50 PM EDT Routine [facility] [address] [place] [phone] Layo Courtney DO [address] [place], [place] [phone] 33 weeks gestation of ([facility]); Third trimester ([facility]); Group B streptococcal infection; resulting from in vitro fertilization in first trimester ([facility]) 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 Tobacco Use Types Packs/Day Years [...] Sign Reading Time Taken Comments Blood Pressure 110/70 01/16/2025 3:13 PM EDT Pulse - - Temperature - - Respiratory Rate - - Oxygen Saturation - - Inhaled Oxygen Concentration - - Weight 103 kg (227 lb) 01/16/2025 3:13 PM EDT Height - - Body Mass Index 40.21 09/17/2022 12:00 PM EDT documented in this encounter Progress Notes * Maria M Guerrero NP - 01/16/2025 2:50 PM EDT Reason for Appointment: Patient ID: Sydney Garcia is a 29 y.o. female who presents [...] Negative. Musculoskeletal: Negative. Skin: Negative. Neurological: Negative. Psychiatric/Behavioral: Negative. Hematological: Negative. Endocrine: Negative. Allergic/Immunologic: Negative. OBJECTIVE [...] nursing note reviewed. Exam conducted with a tax lawyer present. Vitals: Estimated body mass index is 40.21 kg/m?? as calculated from the following: Height as of 09/17/22: 5' 3 . Weight as of this encounter: 227 lb. BP: 110/70 No LMP recorded. Patient is . ASSESSMENT & PLAN ICD-10-CM 1. 33 weeks gestation of ([facility]) Z3A.33 POCT urinalysis dipstick manually resulted 2. Third trimester ([facility]) Z34.93 POCT urinalysis dipstick manually resulted 3. Group B streptococcal infection A49.1 4. resulting from in vitro fertilization in first trimester ([facility]) O09.811 Return OB: Patient presents today for a routine obstetrics appointment. Patient is currently 33w5d . Patient states she is doing well [...] Layo Courtney DO documented in this encounter Plan of Treatment Upcoming Encounters Date Type Department Care Team (Late st Contact Info) Description 01/31/2025 1:50 PM EDT Routine [facility] [address] [place] [phone] Maria M Guerrero NP [address] [place] [phone] documented as of this encounter Procedures Procedure Name Priority Date/Time Associated Diagnosis Comments POCT URINALYSIS DIPSTICK Routine 01/16/2025 3:20 PM EDT 33 weeks gestation of ([facility]) Third trimester ([facility]) documented in this encounter Results * (ABNORMAL) POCT urinalysis dipstick manually resulted (01/16/2025 3:20 PM EDT) Color, UA Yellow Clarity, UA Clear Glucose, UA Negative Negative - 2000(110) ++++ mg/dL Bilirubin, UA Negative Negative - 4(70) +++ mg/dL Ketones, UA Negative Negative - 160(16) ++++ mg/dL Spec Grav, UA 1.030 1 - 1.03 Blood, UA Negative Negative - 50 Jose/mcL pH, UA 6.0 5 - 9 Protein, UA Positive Negative - 2000(20) ++++ mg/dL Urobilinogen, UA 1.0 0.2 - 12 mg/dL Leukocytes, UA Positive Negative - 500+++ Onel/mcL Nitrite, UA Negative Negative - Positive Urine 01/16/2025 3:20 PM EDT Layo Courtney DO POINT OF CARE TEST ENTER/EDIT OR DERABLES Final Result documented in this encounter Visit Diagnoses Diagnosis 33 weeks gestation of ([facility]) Third trimester ([facility]) state, incidental Group B streptococcal infection Streptococcus infection in conditions classified elsewhere and of unspecified site, group B resulting from in vitro fertilization in first trimester ([facility]) documented in this encounter
--- NOTE | 2025-01-24 16:05 | US_ITS ---
The [address] [address] Patient Name: OLENA ROMERO MRN: [id number] date: 1995 Sex: F Assigned Patient Location: [facility] Current Patient Location: Accession/Order Number: [id number] Exam Date: 01/24/2025 16:10 Report Date: 01/24/2025 19:55 At the request of: RULA SMITH DO Procedure: US OB BPP w non-stress Biophysical profile. Reason for exam: resulting in vitro fertilization COMPARISON: 01/17/2025 TECHNIQUE: Transabdominal imaging of the gravid uterus was obtained. FINDINGS: The educational technology coordinator reports a BPP of 6 out of 8 with 0/2 for gross body movements.. LONNY is normal at 11.9 cm. heart rate 148 bpm. US/US OB BPP w non-stress IMPRESSION: BPP 6out of 8. Correlation with NST is suggested. Impression dictated by: Juan Salinas Jr., D.O. 01/24/2025 7:55 PM Dictation Location: [place] [address] Electronically authenticated by: [id number] Y Date: 01/24/2025 19:55
--- OUTSIDE RECORDS SUMMARY | 2025-01-24 16:05 | XMS_ITS | Encounter Summary ---
Author Organization [facility] Address [address] [place] [address] Care Team Providers Care Folder Gluer Operator Name Role Phone Unavailable Primary Care Provider Unavailabl e Encounter Details Date Type Department Care Team (Late st Contact Info) Description 01/21/2024 Orders Only NOMKenisha ZACARIAS [address] [place] [address] Marilia Elder MA [address] [place] [address] 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 Tobacco Use Types Packs/Day Years [...] Info) Description 01/31/2025 1:50 PM EDT Routine NOMKenisha ZACARIAS [address] [place] [address] Maria M Guerrero, MARGARITO [address] [place] [address] documented as of this encounter Procedures [...]
--- OUTSIDE RECORDS SUMMARY | 2025-01-24 16:05 | XMS_ITS | Encounter Summary ---
Author Organization [facility] Address [address] [place] [address] Care Team Providers Care Repair Service Clerk Name Role Phone Unavailable Primary Care Provider Unavailabl e Encounter Details Date Type Department Care Team (Late st Contact Info) Description 04/13/2023 Clinisync Result Encounter [facility] External Department Unsolicited Rula Courtney DO [address] [facility] [place] [address] 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 Tobacco Use Types Packs/Day [...] 01/31/2025 1:50 PM EDT Routine [facility] ZACARIAS [address] [facility] [place] [address] Maria M Guerrero, MARGARITO [address] [facility] [place] [address] documented as of this encounter Procedures Procedure Name Priority Date/Time Associated Diagnosis Comments FL HYSTEROSALPINGOGRAM 10:54 AM EST documented in this encounter Results * FL HYSTEROSALPINGOGRAM (04/13/2023 10:54 AM EST) Anatomical Region Laterality Modality Other 04/13/2023 10:5 4 AM EST Narrative 04/13/2023 10:56 [place] [address] Fluoroscopy Report Signed Patient: OLENA PEREYRA MR#: [id number] : 1995 Acct:[id number] Age/Sex: 27 / F ADM Date: 04/10/23 Loc: LAB Attending Dr: Rula Courtney D.O. Ordering Physician: Rula Courtney D.O. Date of Service: 04/10/23 Procedure(s): FL Hysterosal cath placement Accession Number(s): [id number] cc: Rula Courtney D.O.; Physician,Non-Staff [place] [id number] Patient Name: OLENA PEREYRA MRN: [id number] date: 1995 Sex: F Assigned Patient Location: LAB Current Patient Location: LAB Accession/Order Number: [id number] Exam Date: 04/10/2023 14:30 Report Date: 04/13/2023 10:54 At the request of: RULA COURTNEY Procedure: FL Hysterosal cath placement EXAM: FL Hysterosal cath placement HISTORY: Infertility TECHNIQUE: FINDINGS: Please see Operative Report. Electronically authenticated by: DARRYN LONDON Date: 04/13/2023 10:54 Dictated By: Darryn London Signed By: 04/13/23 1056 DD/ 1054 TD/TT: Gas Main Fitter Helper: Procedure Note Radiology, Radiologist, MD - 04/13/2023 [place] [address] Fluoroscopy Report Signed Patient: OLENA PEREYRA RMR#: [id number] : 1995Acct:[id number] Age/Sex: 27 / FADM Date: 04/10/23 Loc: LAB Attending Dr: Rula Courtney D.O. Ordering Physician: Rula Courtney D.O. Date of Service: 04/10/23 Procedure(s): FL Hysterosal cath placement Accession Number(s): [id number] cc: Rula Courtney D.O.; Physician,Non-Staff [facility] [place] [id number] Patient Name: OLENA PEREYRA MRN: [id number] date: 1995 Sex: F Assigned Patient Location: LAB Current Patient Location: LAB Accession/Order Number: [id number] Exam Date: 04/10/2023 14:30 Report Date: 04/13/2023 10:54 At the request of: RULA COURTNEY Procedure: FL Hysterosal cath placement EXAM: FL Hysterosal cath placement HISTORY: Infertility TECHNIQUE: FINDINGS: Please see Operative Report. Electronically authenticated by: DARRYN LONDON Date: 04/13/2023 10:54 Dictated By: Darryn London Signed By:04/13/23 1056 DD/ 1054 TD/TT: Gas Main Fitter Helper: us Rula Courtney DO [facility] Final Result documented in this encounter Visit Diagnoses Not on filedocumented in this encounter
--- OUTSIDE RECORDS SUMMARY | 2025-01-24 16:05 | XMS_ITS | Encounter Summary ---
Author Organization [facility] Address [address] [place] [address] Care Team Providers Care Chef Name Role Phone Unavailable Primary Care Provider Unavailabl e Encounter Details Date Type Department Care Team (Late st Contact Info) Description 01/10/2025 Clinisync Result Encounter [facility] External Department Unsolicited Rula Courtney DO [address] [address] 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 Tobacco Use Types [...] PM EDT Routine [facility] [address] [facility] [place] [address] Maria M Guerrero, MARGARITO [address] [facility] [place] [address] documented as of this encounter Procedures Procedure Name Priority Date/Time Associated Diagnosis Comments US OB BPP W NON-STRESS 01/10/2025 9:07 PM EDT documented in this encounter Results * US OB BPP W NON-STRESS (01/10/2025 9:07 PM EDT) Anatomical Region Laterality Modality Other 01/10/2025 9:07 PM EDT Narrative 01/10/2025 9:10 [place] [address] Ultrasound Report Signed Patient: OLENA GARCIA MR#: [id number] : 1995 Acct:[id number] Age/Sex: 29 / F ADM Date: 01/10/25 Loc: US Attending Dr: Rula Courtney D.O. Ordering Physician: Rula Courtney D.O. Date of Service: 01/10/25 Procedure(s): US OB BPP w non-stress Accession Number(s): [id number] cc: Rula Courtney D.O.; Physician,Non-Staff [place] [address] Patient Name: OLENA GARCIA MRN: [id number] date: 1995 Sex: F Assigned Patient Location: US Current Patient Location: Accession/Order Number: [id number] Exam Date: 01/10/2025 16:03 Report Date: 01/10/2025 21:07 At the request of: RULA COURTNEY DO Procedure: US OB BPP w [...] Romero M.D. 01/10/2025 9:07 PM Dictation Location: [place] [address] Electronically authenticated by: [id number] Y Date: 01/10/2025 21:07 Dictated By: Bernabe Romero M.D. Signed By: 01/10/252109 DD/ 06 TD/TT: Professional Fighter: Procedure Note Radiology, Radiologist, - 01/10/2025 [place] [address] Ultrasound Report Signed Patient: OLENA GARCIA RMR#: [id number] : 1995Acct:[id number] Age/Sex: 29 / FADM Date: 01/10/25 Loc: US Attending Dr: Rula Courtney D.O. Ordering Physician: Rula Courtney D.O. Date of Service: 01/10/25 Procedure(s): US OB BPP w non-stress Accession Number(s): [id number] cc: Rula Courtney D.O.; Physician,Non-Staff [place] [facility] [place] [address] Patient Name: OLENA GARCIA MRN: [id number] date: 1995 Sex: F Assigned Patient Location: US Current Patient Location: Accession/Order Number: [id number] Exam Date: 01/10/2025 16:03 Report Date: 01/10/2025 21:07 At the request of: RULA COURTNEY DO Procedure: US OB BPP w non-stress Ultrasound biophysical profile INDICATION: from IVF FINDINGS 12/09 score biophysical profile. LONNY 11.8 cm. Heart rate 153beats per minutes.. Hypoechoic area within the placenta 2.4 x 2.1 x 1.3 cm insize. Hypoechoic focus right retroplacental region 2.2 x 2.3 x 8.2 cm in size. US/US OB BPP w non-stress Impression: 8 out of 8 score biophysical profile Question venous lakes involving the placenta. Recommend follow-up. Impression dictated by: Bernabe Romero M.D. 01/10/2025 9:07 PM Dictation Location: [place] [address] Electronically authenticated by: [id number] Y Date: 1:07 Dictated By: Bernabe Romero M.D. Signed By:01/10/252109 DD/ 06 TD/TT: Professional Fighter: us Rula Courtney DO [facility] Final Result documented in this encounter Visit Diagnoses Not on filedocumented in this encounter
--- OUTSIDE RECORDS SUMMARY | 2025-01-24 16:05 | XMS_ITS | Clinical Summary ---
Author Organization [facility] Address [address] [place] [address] Care Team Providers Care Cco & President Name Role Phone Unavailable Primary Care Provider Unavailabl e Allergies Active Allergy Reactions Criticality Noted Date Comments Azithromycin Unknown 03/16/2023 Other Reaction(s): Unknown Latex Rash Low 03/16/2023 Other Reaction(s): Itching Nickel Itching,Rash Low 03/16/2023 Medications MV-Min-Fe Fum-FA-DHA ( 1 PO) Take 1 each by mouth Daily Active amoxicillin (Amoxil) 500 MG tabletIndications: Group B streptococcal infection Take 1 tablet (500 mg) by mouth in the morning and 1 tablet (500 mg) before bedtime. Do all this for 7 days. 14 tablet 12/29/19 25 Active Problems Estimated Date of Delivery Comme nts Yes 03/01/2025 Based on Ultraso und No known active problems Encounters Date Type Department Care Team Description 01/18/2025 Clinisync Result Encounter NOMS External Department Unsolicited Rula Courtney DO 01/16/2025 2:50 PM [place] [id number] Rula Courtney DO 33 weeks gestation of ([facility]); Third trimester ([facility]); Group B streptococcal infection; resulting from in vitro fertilization in first trimester ([facility]) 01/16/2025 Bamboo flowsheet [facility] David [address] [place] [phone] Rula Courtney DO 01/10/2025 Clinisync Result Encounter NOMS External Department Unsolicited Rula Courtney, 01/03/2025 10:00 [place] [address] Rula Courtney, Third trimester ([facility]); 31 weeks gestation of ([facility]); resulting from in vitro fertilization in third trimester ([facility]) 01/03/2025 Bamboo flowsheet [facility] [place] [address] Rula Courtney, 12/21/2024 [place] [address] Marilia Elder MA 12/19/2024 10:00 [place] [address] Rula Courtney, 29 weeks gestation of ([facility]); Third trimester ([facility]); Leukocytes in urine; Other microscopic hematuria 12/19/2024 9:30 AM EDT [place] [address] resulting from in vitro fertilization in second trimester ([facility]) 12/06/2024 8:30 [place] [address] Rula Courtney, 27 weeks gestation of ([facility]); Second trimester ([facility]); resulting from in vitro fertilization in second trimester ([facility]) 12/06/2024 Clinisync Result Encounter NOMS External Department Unsolicited Rula Courtney, DO 12/06/2024 [place] [address] Rula Courtney, DO 11/28/2024 Telephone [facility] [place] [address] [place] [address] Rula Courtney, DO 11/26/2024 Clinisync Result Encounter NOMS External Department Unsolicited Rula Courtney, 11/18/2024 Abstract [facility] [place] [address] [facility] [place] [phone] Rula Courtney, 11/08/2024 2:40 PM [place] [phone] Rula Courtney, DO Second trimester ([facility]); 26 weeks gestation of ([facility]); Diabetes mellitus screening 11/08/2024 Abstract [facility] [place] [address] [facility] [place] [address] Emilia Donahue MA from Last 3 Months Family History Medical [...] (227 lb) 01/16/2025 3:13 PM EDT Height 160 cm (5' 3 ) 09/17/2022 12:00 PM EDT Body Mass Index 40.21 09/17/2022 12:00 PM EDT Plan of Treatment Upcoming Encounters Date Type Department Care Team (Late st Contact Info) Description 01/31/2025 1:50 PM EDT Routine [facility] [address] [place] [address] Maria M Guerrero, MARGARITO [address] [place] [address] Procedures Procedure Name Priority Date/Time Associated Diagnosis Comments US OB BPP W NON-STRESS 01/18/2025 9:02 AM EDT POCT URINALYSIS DIPSTICK Routine 01/16/2025 3:20 PM EDT 33 weeks gestation of ([facility]) Third trimester ([facility]) US OB BPP W NON-STRESS 01/10/2025 9:07 PM EDT POCT URINALYSIS DIPSTICK Routine 01/03/2025 10:22 AM EDT Third trimester ([facility]) 31 weeks gestation of ([facility]) URINARY TRACT INFECTION (HTRX) Routine 12/19/2024 11:28 AM EDT POCT URINALYSIS DIPSTICK Routine 12/19/2024 10:11 AM EDT 29 weeks gestation of ([facility]) Third trimester ([facility]) US OB FOLLOW UP TRANSABDOMINAL APPROACH Routine 12/19/2024 9:56 AM EDT resulting from in vitro fertilization in second trimester ([facility]) GLUCOSE TOLERANCE 3 HOUR Routine 12/06/2024 11:26 AM EDT POCT URINALYSIS DIPSTICK Routine 12/06/2024 8:40 AM EDT 27 weeks gestation of ([facility]) Second trimester ([facility]) GLUCOSE 1 HOUR Routine 11/26/2024 10:03 AM EDT ALL CBC WITH AUTO DIFF Routine 10:03 AM EDT POCT URINALYSIS DIPSTICK Routine 11/09/2024 11:39 AM EDT Second trimester ([facility]) 26 weeks gestation of ([facility]) from Last 3 Months Results * US OB BPP W NON-STRESS (01/18/2025 9:02 AM EDT) Only the most recent of2 resultswithin the time period is included. Anatomical Region Laterality Modality Other 01/18/2025 9:02 AM EDT Narrative 01/18/2025 9:05 [place] [address] Ultrasound Report Signed Patient: OLENA GARCIA MR#: [id number] : 1995 Acct:[id number] Age/Sex: 29 / F ADM Date: 01/17/25 Loc: US Attending Dr: Rula Courtney D.O. Ordering Physician: Rula Courtney D.O. Date of Service: 01/17/25 Procedure(s): US OB BPP w non-stress Accession Number(s): [id number] cc: Rula Courtney D.O.; Physician,Non-Staff M.Nadir The [place] [id number] Patient Name: OLENA GARCIA MRN: [facility]:[id number] date: 1995 Sex: F Assigned Patient Location: [facility] Current Patient Location: Accession/Order Number: [id number] Exam Date: 01/17/2025 16:08 Report Date: 01/18/2025 09:02 At the request of: RULA COURTNEY DO Procedure: US OB BPP w non-stress BIOPHYSICAL PROFILE: CLINICAL INFORMATION: resulting from in vitro fertilization O09.813 COMPARISON: 01/10/2025 There is a single live intrauterine gestation in cephalic presentation. The reported gestational age is 33 weeks 6 days. The heart rate measures 126 beats per minute. There is still a potential venous sutton within the placenta measuring 1.8 x 2.6 [...] non-stress IMPRESSION: NORMAL BIOPHYSICAL PROFILE. POSSIBLE VENOUS SUTTON. Impression dictated by: Mariela Toledo M.D. 01/18/2025 9:02 AM Dictation Location: [email or web address] Electronically authenticated by: [id number] Y Date: 01/18/2025 09:02 Dictated By: Mariela Toledo M.D. Signed By: 01/18/25904 DD/ 1 TD/TT: Ground Instructor Advanced: Procedure Note Radiology, Radiologist, - 01/18/2025 [place] [address] Ultrasound Report Signed Patient: OLENA GARCIA RMR#: [id number] : 1995Acct:[id number] Age/Sex: 29 / FADM Date: 01/17/25 Loc: US Attending Dr: Rula Courtney D.O. Ordering Physician: Rula Courtney D.O. Date of Service: 01/17/25 Procedure(s): US OB BPP w non-stress Accession Number(s): [id number] cc: Rula Courtney D.O.; Physician,Non-Staff Steven The [place] [id number] Patient Name: OLENA GARCIA MRN: [facility]:[id number] date: 1995 Sex: F Assigned Patient Location: [facility] Current Patient Location: Accession/Order Number: [id number] Exam Date: 01/17/2025 16:08 Report Date: 01/18/2025 09:02 At the request of: RULA COURTNEY DO Procedure: US OB BPP w non-stress BIOPHYSICAL PROFILE: CLINICAL INFORMATION: resulting from in vitro [id number] COMPARISON: 01/10/2025 There is a single live intrauterine gestation in cephalic presentation.The reported gestational age is 33 weeks 6 days. The heart ratemeasures 126 beats per minute. There is still a potential venous sutton within the placenta measuring 1.8 x 2.6 x 1.7 cm. A second hypoechoic areaassociated with the placental on the prior was not identified today. FINDINGS: TONE: 1 or more episodes of activity extension and flexion of extremity or opening and closing of the hand [Y] 2/2 GROSS BODY MOVEMENTS: 3 or more discrete body or limb movements [Y] 2/2 BREATHING MOVEMENTS: 1 or more episodes of breathing lastingat least 30 seconds [Y] 2/2 LONNY: A single deepest vertical pocket of amniotic fluid greater than 2 cm [Y] 2/2 LONNY: 14.2 cm Total score: 8/8 US/US OB BPP w non-stress IMPRESSION: NORMAL BIOPHYSICAL PROFILE. POSSIBLE VENOUS SUTTON. Impression dictated by: Mariela Toledo M.D. 01/18/2025 9:02 AM Dictation Location: [place] [address] Electronically authenticated by: [id number] Y Date: 509:02 Dictated By: Mariela Toledo M.D. Signed By:01/18/25904 DD/ 1 TD/TT: Ground Instructor Advanced: us Rula Courtney DO [facility] Final Result * (ABNORMAL) POCT urinalysis dipstick manually resulted (01/16/2025 3:20 PM EDT) Only the most recent of5 resultswithin the time period is included. Color, UA Yellow Clarity, UA Clear Glucose, UA Negative Negative - 1999(110) ++++ mg/dL Bilirubin, UA Negative Negative - 4(70) +++ mg/dL Ketones, UA Negative Negative - 160(16) ++++ mg/dL Spec Grav, UA 1.030 1 - 1.03 Blood, UA Negative Negative - 50 Jose/mcL pH, UA 6.0 5 - 9 Protein, UA Positive Negative - 1999(20) ++++ mg/dL Urobilinogen, UA 1.0 0.2 - 12 mg/dL Leukocytes, UA Positive Negative - 500+++ Onel/mcL Nitrite, UA Negative Negative - Positive Urine 01/16/2025 3:20 PM EDT Rula Courtney DO POINT OF CARE TEST ENTER/EDIT OR DERABLES Final Result * (ABNORMAL) URINARY TRACT INFECTION (HTRX) (12/19/2024 11:28 AM EDT) [facility] ACINETOBACTER BAUMANII 0 19.961 - 24.689 ppm 12/20/2024 7:51 AM EDT [facility] ACINETOBACTER BAUMANII Not Detected 19.961 - 24.689 ppm 12/20/2024 7:51 AM EDT [facility] CITROBACTER FREUNDII 0 23.000 - 32.015 ppm 12/20/2024 7:51 AM EDT [facility] CITROBACTER FREUNDII Not Detected 23.000 - 32.015 ppm 12/20/2024 7:51 AM EDT [facility] ENTEROBACTER AEROGENES, CLOACAE 0 23.000 - 32.290 ppm 12/20/2024 7:51 AM EDT [facility] ENTEROBACTER AEROGENES, CLOACAE Not Detected 23.000 - 32.290 ppm 12/20/2024 7:51 AM EDT [facility] ENTEROCOCCUS FAECALIS, FAECIUM 0 26.000 - 33.043 ppm 12/20/2024 7:51 AM EDT [facility] ENTEROCOCCUS FAECALIS, FAECIUM Not Detected 26.000 - 33.043 ppm 12/20/2024 7:51 AM EDT [facility] ESCHERICHIA COLI 0 23.000 - 28.500 ppm 12/20/2024 7:51 AM EDT [facility] ESCHERICHIA COLI Not Detected 23.000 - 28.500 ppm 12/20/2024 7:51 AM EDT [facility] KLEBSIELLA PNEUMONIAE, OXYTOCA 0 23.000 - 31.865 ppm 12/20/2024 7:51 AM EDT [facility] KLEBSIELLA PNEUMONIAE, OXYTOCA Not Detected 23.000 - 31.865 ppm 12/20/2024 7:51 AM EDT [facility] MORGANELLA MORGANII 0 19.961 - 24.689 ppm 12/20/2024 7:51 AM EDT [facility] MORGANELLA MORGANII Not Detected 19.961 - 24.689 ppm 12/20/2024 7:51 AM EDT [facility] PROTEUS MIRABILIS, VULGARIS 0 23.000 - 28.500 ppm 12/20/2024 7:51 AM EDT [facility] PROTEUS MIRABILIS, VULGARIS Not Detected 23.000 - 28.500 ppm 12/20/2024 7:51 AM EDT [facility] PSEUDOMONAS AERUGINOSA 0 23.000 - 31.801 ppm 12/20/2024 7:51 AM EDT [facility] PSEUDOMONAS AERUGINOSA Not Detected 23.000 - 31.801 ppm 12/20/2024 7:51 AM EDT [facility] STAPHYLOCOCCUS AUREUS 0 26.000 - 31.595 ppm 12/20/2024 7:51 AM EDT [facility] STAPHYLOCOCCUS AUREUS Not Detected 26.000 - 31.595 ppm 12/20/2024 7:51 AM EDT [facility] STREPTOCOCCUS AGALACTIAE (GROUP B STREP) 30.017(A) 26.000 - 32.435 ppm 12/20/2024 7:51 AM EDT [facility] STREPTOCOCCUS AGALACTIAE (GROUP B STREP) Detected(A) 26.000 - 32.435 ppm 12/20/2024 7:51 AM EDT [facility] PRESTON ALBICANS, PARAPSILOSIS, TROPICALIS 0 23.000 - 30.347 ppm 12/20/2024 7:51 AM EDT [facility] PRESTON ALBICANS, PARAPSILOSIS, TROPICALIS Not Detected 23.000 - 30.347 ppm 12/20/2024 7:51 AM EDT [facility] PRESTON GLABRATA 0 23.000 - 31.618 ppm 12/20/2024 7:51 AM EDT [facility] PRESTON GLABRATA Not Detected 23.000 - 31.618 ppm 12/20/2024 7:51 AM EDT [facility] PRESTON KRUSEI 0 23.000 - 30.873 ppm 12/20/2024 7:51 AM EDT [facility] PRESTON KRUSEI Not Detected 23.000 - 30.873 ppm 12/20/2024 7:51 AM EDT [facility] SERRATIA MARCESCENS 0 23.000 - 31.581 ppm 12/20/2024 7:51 AM EDT [facility] SERRATIA MARCESCENS Not Detected 23.000 - 31.581 ppm 12/20/2024 7:51 AM EDT [facility] STREPTOCOCCUS PYOGENES (GROUP A STREP) 0 19.961 - 24.689 ppm 12/20/2024 7:51 AM EDT [facility] STREPTOCOCCUS PYOGENES (GROUP A STREP) Not Detected 19.961 - 24.689 ppm 12/20/2024 7:51 AM EDT [facility] STAPHYLOCOCCUS EPIDERMIDIS, HAEMOLYTICUS, LUGDUNENSIS, SAPROPHYTICUS (URINA 0 19.961 - 24.689 ppm 12/20/2024 7:51 AM EDT [facility] STAPHYLOCOCCUS EPIDERMIDIS, HAEMOLYTICUS, LUGDUNENSIS, SAPROPHYTICUS (URINA Not Detected 19.961 - 24.689 ppm 12/20/2024 7:51 AM EDT [facility] STAPHYLOCOCCUS EPIDERMIDIS, HAEMOLYTICUS, LUGDUNENSIS, SAPROPHYTICUS (URINA 0 19.961 - 24.689 ppm 12/20/2024 7:51 AM EDT [facility] STAPHYLOCOCCUS EPIDERMIDIS, HAEMOLYTICUS, LUGDUNENSIS, SAPROPHYTICUS (URINA Not Detected 19.961 - 24.689 ppm 12/20/2024 7:51 AM EDT [facility] Urine 12/19/2024 11:2 8 AM EDT 12/20/2024 1:37 AM EDT us Rula Courtney DO LAB BLOOD ORDERABLES Final Resul t [facility] [address] [facility] [address] [place] [address] * US OB follow up transabdominal approach (12/19/2024 9:56 AM EDT) Anatomical Region Laterality Modality Body Ultrasound 12/22/2024 8:05 AM EDT Narrative 12/22/2024 8:05 AM EDT EXAM: US OB FOLLOW UP TRANSABDOMINAL APPROACH [...] II, MD, PHD at 22-Dec-2024 08:03:51 AM [facility] Procedure Note Toñito Friend MD - 12/22/2024 EXAM: US OB FOLLOW UP TRANSABDOMINAL APPROACH HISTORY: Inconsistent size, IVF. COMPARISON: None available. TECHNIQUE: Two-dimensional transabdominal grayscale ultrasound imaging ofthe pelvis was performed. FINDINGS: Gestation: Single Presentation: [...] is 30 weeks 4 days (+/- 15 daysgestation). Estimated Weight: 1581 grams, +/- 237 grams ( 3 lb 8 oz). Weight Percentile for gestational age: 65 % IMPRESSION: 1. Single, live intrauterine gestation 29 weeks, 5 days by LMP. Today'sultrasound measurements correlate with a gestational age of 30 weeks 4days. Estimated weight is 1581 grams, +/- 237 grams ( 3 lb 8 oz)which correlates to 65 %. BROOKE by today's ultrasound is 02/23/2025. Interpreted by: Electronically signed by TOÑITO FRIEND II, MD, PHD [id number] 08:03:51 AM [facility] us Rula Courtney DO [facility] OB US PROCEDURES Final Resul t * GLUCOSE TOLERANCE 3 HOUR (12/06/2024 11:26 AM EDT) GLUCOSE TOLERANCE 3 HOUR mg/dL TB Comment: GLU FAST 90 (<95) Col: 12/06/24 1126 GLU 1HR 143 (<180) Col: 12/06/24 1235 GLU 2HR 132 (<155) Col: 12/06/24 1327 GLU 3HR 81 (<140) Col: 12/06/24 1432 12/06/2024 11:2 6 AM EDT 12/06/2024 11:35 AM EDT Narrative [facility] - 12/06/2024 3:13 PM EDT Rula Sherwin DO LAB BLOOD ORDERABLES Final [facility]ul t [facility] * (ABNORMAL) GLUCOSE 1 HOUR (11/26/2024 10:03 AM EDT) Pathologist [facility] GLUCOSE 1 HOUR 156(H) <130 mg/dL [facility]H 11/26/2024 10:0 3 AM EDT 11/26/2024 10:04 AM EDT Narrative [facility] - 11/26/2024 10:27 AM EDT Rula Sherwin DO LAB BLOOD ORDERABLES Final Resul t Performing Organization Address City/[facility] Co de Phone Number [facility] * (ABNORMAL) ALL CBC WITH AUTO DIFF (11/26/2024 10:03 AM EDT) [facility] TB WBC 9.2 4.0 - 11.0 10 3/uL TBH TB RBC 4.32 4.20 - 5.40 10 6/uL [facility] TB HGB 13.6 12.0 - 16.0 g/dL TB TB HCT 38.9 36.0 - 48.0 % TB TB MCV 90.0 81.0 - 99.0 fL TB TB MCH 31.5 26.7 - 34.0 pg TBH TB MCHC 35.0 29.9 - 35.2 g/dL TB TB RDW 12.4 11.0 - 15.0 % TB TB PLT 142(L) 150 - 450 10 3/uL TBH TB MPV 11.3 9.5 - 13.5 fL TB NEUTROPHILS PERCENT AUTO 73.7 43.0 - 75.0 [...] [facility] - 11/26/2024 10:14 AM EDT us Rula Sherwin DO [facility] Final Result [facility] from Last 3 Months Insurance [employer]
--- OUTSIDE RECORDS SUMMARY | 2025-01-24 16:05 | XMS_ITS | Encounter Summary ---
Author Organization [facility] Address [address] [place] [address] Care Team Providers Care Maitre D Name Role Phone Unavailable Primary Care Provider Unavailabl e Encounter Details Date Type Department Care Team (Late st Contact Info) Description 09/21/2024 Abstract [facility] Yanira [address]AR[address] [place] [address] Layo Courtney DO [address] [facility] [address] [address] 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 Tobacco Use [...] 1:50 PM EDT Routine NOMKenisha ZACARIAS [address] [place] [address] Maria M Guerrero NP [address] [address] documented as of this encounter Visit Diagnoses Not on filedocumented in this encounter
--- OUTSIDE RECORDS SUMMARY | 2025-01-24 16:05 | XMS_ITS | Encounter Summary ---
Author Organization [facility] Address [address] [place] [address] Care Team Providers Care Historic Site Administrator Name Role Phone Unavailable Primary Care Provider Unavailabl e Encounter Details Date Type Department Care Team (Late st Contact Info) Description 01/22/2024 Abstract [facility] Yanira ZACARIAS [address] [place] [address] Layo Courtney DO [address] [facility] [place] [address] 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 Tobacco Use Types Packs/Day [...] 1:50 PM EDT Routine NOMKenisha Z[facility]ARIAS [address] [place] [address] Maria M Guerrero, MARGARITO [address] [facility] [place] [address] documented as of this encounter Visit Diagnoses Not on filedocumented in this encounter
--- OUTSIDE RECORDS SUMMARY | 2025-01-24 16:05 | XMS_ITS | Encounter Summary ---
Author Organization [facility] Address [address] [place] [address] Care Team Providers Care Furnace Caretaker Name Role Phone Unavailable Primary Care Provider Unavailabl e Encounter Details Date Type Department Care Team (Late st Contact Info) Description 04/10/2023 Clinisync Result Encounter NOMS External Department Unsolicited Rula Courtney DO [address] [facility] [place] [address] 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 Tobacco Use Types [...] PM EDT Routine NOMS David ZACARIAS [address] [place] [address] Maria M Guerrero, MARGARITO [address] [facility] [place] [address] documented as of this encounter Procedures Procedure Name Priority Date/Time Associated Diagnosis Comments FL HYSTEROSALPINGOGRAPHY 023 3:10 PM EST documented in this encounter Results * FL HYSTEROSALPINGOGRAPHY (04/10/2023 3:10 PM EST) Anatomical Region Laterality Modality Other 04/10/2023 3:10 PM EST Narrative 04/10/2023 3:13 PM EST The [address] [address] Fluoroscopy Report Signed Patient: OLENA PEREYRA MR#: [id number] : 1995 Acct:[id number] Age/Sex: 27 / F ADM Date: 04/10/23 Loc: LAB Attending Dr: Rula Courtney D.O. Ordering Physician: Rula Courtney D.O. Date of Service: 04/10/23 Procedure(s): FL hysterosalpingography Accession Number(s): [id number] cc: Rula Courtney D.O.; Physician,Non-Staff Steven The [address] [address] Patient Name: OLENA PEREYRA MRN: [id number] date: 1995 Sex: F Assigned Patient Location: LAB Current Patient Location: Accession/Order Number: [id number] Exam Date: 04/10/2023 14:30 Report Date: 04/10/2023 [...] M.D. Signed By: 04/10/231512 DD/ 09 TD/TT: Hydraulic Auto Jack Mechanic: Procedure Note Radiology, Radiologist, MD - 04/10/2023 [place] [address] Fluoroscopy Report Signed Patient: OLENA PEREYRA RMR#: [id number] : 1995Acct:[id number] Age/Sex: 27 / FADM Date: 04/10/23 Loc: LAB Attending Dr: Rula Courtney D.O. Ordering Physician: Rula Courtney D.O. Date of Service: 04/10/23 Procedure(s): FL hysterosalpingography Accession Number(s): [id number] cc: Rula Courtney D.O.; Physician,Non-Staff Steven The [place] [address] Patient Name: OLENA PEREYRA MRN: [id number] date: 1995 Sex: F Assigned Patient Location: LAB Current Patient Location: Accession/Order Number: [id number] Exam Date: 04/10/2023 14:30 Report Date: 04/10/2023 [...] M.D. Signed By:04/10/23 151 DD/ 09 TD/TT: Hydraulic Auto Jack Mechanic: us Rula Courtney DO [facility] Final Result documented in this encounter Visit Diagnoses Not on filedocumented in this encounter
--- OUTSIDE RECORDS SUMMARY | 2025-01-24 16:05 | XMS_ITS | Encounter Summary ---
Author Organization [facility] Address [address] [place] [address] Care Team Providers Care Commercial Lines Underwriter Name Role Phone Unavailable Primary Care Provider Unavailabl e Encounter Details Date Type Department Care Team (Late st Contact Info) Description 01/18/2025 Clinisync Result Encounter [facility] External Department Unsolicited Rula Courtney DO [address] [place] [address] 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 Tobacco Use Types [...] PM EDT Routine [facility] David [facility]BGYN [address] [place] [place] [address] Maria M Guerrero, MARGARITO [address] [facility] [place] [address] documented as of this encounter Procedures Procedure Name Priority Date/Time Associated Diagnosis Comments US OB BPP W NON-STRESS 01/18/2025 9:02 AM EDT documented in this encounter Results * US OB BPP W NON-STRESS (01/18/2025 9:02 AM EDT) Anatomical Region Laterality Modality Other 01/18/2025 9:02 AM EDT Narrative 01/18/2025 9:05 AM EDT [address] [address] Ultrasound Report Signed Patient: OLENA GARCIA MR#: [id number] : 1995 Acct:[id number] Age/Sex: 29 / F ADM Date: 01/17/25 Loc: US Attending Dr: Rula Courtney D.O. Ordering Physician: Rula Courtney D.O. Date of Service: 01/17/25 Procedure(s): US OB BPP w non-stress Accession Number(s): [id number] cc: Rula Courtney D.O.; Physician,Non-Staff Steven [address] [address] Patient Name: OLENA GARCIA MRN: [id number] date: 1995 Sex: F Assigned Patient Location: [facility] Current Patient Location: Accession/Order Number: [id number] Exam Date: 01/17/2025 16:08 Report Date: 01/18/2025 [...] [Y] 2/2 LONNY: 14.2 cm Total score: 8 US/US OB BPP w non-stress IMPRESSION: NORMAL BIOPHYSICAL PROFILE. POSSIBLE VENOUS SUTTON. Impression dictated by: Mariela Toledo M.D. 01/18/2025 9:02 AM Dictation Location: [place] [address] Electronically authenticated by: [id number] Y Date: 01/18/2025 09:02 Dictated By: Mariela Toledo M.D. Signed By: 01/18/25904 DD/ 1 TD/TT: Automotive Center Manager: Procedure Note Radiology, Radiologist, MD - 01/18/2025 [place] [address] Ultrasound Report Signed Patient: OLENA GARCIA RMR#: [id number] : 1995Acct:[id number] Age/Sex: 29 / FADM Date: 01/17/25 Loc: US Attending Dr: Rula Courtney D.O. Ordering Physician: Rula Courtney D.O. Date of Service: 01/17/25 Procedure(s): US OB BPP w non-stress Accession Number(s): [id number] cc: Rula Courtney D.O.; Physician,Non-Staff Steven The [address] [id number] Patient Name: OLENA GARCIA MRN: [id number] date: 1995 Sex: F Assigned Patient Location: [facility] Current Patient Location: Accession/Order Number: [id number] Exam Date: 01/17/2025 16:08 Report Date: 01/18/2025 09:02 At the request of: RULA COURTNEY DO Procedure: US OB BPP w non-stress BIOPHYSICAL PROFILE: CLINICAL INFORMATION: resulting from in vitro [id number] COMPARISON: 01/10/2025 There is a single live [...] Toledo M.D. 01/18/2025 9:02 AM Dictation Location: [place] [address] Electronically authenticated by: [id number] Y Date: 9:02 Dictated By: Mariela Toledo M.D. Signed By:01/18/25904 DD/ 1 TD/TT: Automotive Center Manager: Rula Courtney DO [facility] Final Result documented in this encounter Visit Diagnoses Not on filedocumented in this encounter
--- OUTSIDE RECORDS SUMMARY | 2025-01-24 16:05 | XMS_ITS | Encounter Summary ---
Author Organization [facility] Address [address] [place] [address] Care Team Providers Care Engineer Rf Deployment Name Role Phone Unavailable Primary Care Provider Unavailabl e Encounter Details Date Type Department Care Team (Late st Contact Info) Description 08/02/2024 Abstract [facility] Yanira ZACARIAS [address] [place] [address] Layo Courtney DO [address] [facility] [place] [address] 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 Tobacco Use Types Packs/Day [...] 1:50 PM EDT Routine NOMKenisha ZACARIAS [address] [place] [address] Maria M Guerrero NP [address] [facility] [place] [address] documented as of this encounter Visit Diagnoses Not on filedocumented in this encounter
--- OUTSIDE RECORDS SUMMARY | 2025-01-24 16:05 | XMS_ITS | Encounter Summary ---
Author Organization [facility] Address [address] [place] [address] Care Team Providers Care Communications Electrician Supervisor Name Role Phone Unavailable Primary Care Provider Unavailabl e Encounter Details Date Type Department Care Team (Late st Contact Info) Description 09/21/2024 Abstract [facility] Yanira ZACARIAS [address] [place] [address] Layo Courtney DO [address] [facility] [address] 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 Tobacco Use Types Packs/Day [...] 1:50 PM EDT Routine NOMKenisha ZACARIAS [address] [place] [address] Maria M Guerrero NP [address] [facility] [address] documented as of this encounter Visit Diagnoses Not on filedocumented in this encounter
--- OUTSIDE RECORDS SUMMARY | 2025-01-24 16:06 | XMS_ITS | Encounter Summary ---
Author Organization [facility] Address [address] [place] [address] Phone Care Team Providers Care Machine Sand Mixer Name Role Phone Allyssa Robles RN Unavailable Unavailable Encounter Details Date Type Department Care Team (Late st Contact Info) Description 06/23/2024 Lab Requisition [facility] [address] [place] [address] Juan Chavarria MD [address] [facility] [place], [address] [phone] Encounter for test, result unknown 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 [...] LAB IMMUNOASSAY METHOD 06/23/2024 11:[address] [facility] Comment:Low-level positive H CG results can [...] AM EST 06/23/2024 10:[address] [facility] - 06/23/2024 11:04 AM EST Total HCG measurement is performed using the Faith [place] Access Immunoassay which detects intact HCG and free beta HCG subunit. This test is not indicated for use as a tumor marker. HCG testing is performed using a different test methodology at [facility] than other [facility]. Direct result comparison should only be made within the same method. us Juan Chavarria MD LAB BLOOD ORDERABLES Final R esult [facility] [address] [place] [phone] documented in this encounter Visit Diagnoses Diagnosis Encounter for test, result unknown documented in this encounter Care Teams Machine Sand Mixer Relationship Specialty Start Date End Date Allyssa Robles, RN Registered Nurse Reproductive Endocrinology and Infertility 12/25/23 documented as of this encounter
--- OUTSIDE RECORDS SUMMARY | 2025-01-24 16:06 | XMS_ITS | Clinical Summary ---
Author Organization [facility] Address [address] [place] [address] Phone Care Team Providers Care Fuel House Attendant Name Role Phone Allyssa Robles RN Unavailable Unavailable Allergies Active Allergy Reactions Criticality Noted Date Comments Latex Rash Low 2023 Nickel Rash Low 2023 Medications [id number] 29-1-400 mg combo pack,tablet and cap,DR [...] (postoperative nausea and vomiting) 024 Comments Yes Family History Medical History Relation Name Comments [...] of 1 - Stand miya series) 1998 Hepatitis B Vaccines (1 of 3 - 19+ 3-dose series) 2016 HPV/Cotest 2018 DTaP/Tdap/Td Vaccines (2 - T d or Tdap) 12/21/2019 12/20/2009 HPV Vaccines (1 - 3-dose sta ndard series) 2024 COVID-19 Vaccine ( - 2023-2 5 season) 2025 Influenza Vaccine (#1) 2025 Yearly Adult Physical [...] Procedure Name Priority Date/Time Associated Diagnosis Comments HEPATITIS C ANTIBODY Routine 2023 10:21 AM EDT Screening for STDs (sexually transmitted diseases) HIV 1/2 ANTIGEN/ANTIBODY SCREEN WIH REFLEX TO CONFIRMATION Routine 2023 10:21 AM EDT Screening for STDs (sexually transmitted diseases) from Last 3 Months or Most Recently Relevant to Health Maintenance Results * Hepatitis C Antibody (2023 10:21 AM EDT) Pathologist [facility] Hepatitis C Anitbody Nonreactive Nonreactive LAB IMMUNOASSAY METHOD 2023 7:11 PM EDT [facility] Comment:Results from patient s taking biotin supplements or receiving high-dose biotin therapy should be interpreted with caution due to possible interference with this test. Providers may contact their local laboratory for further information. Blood Venous blood specimen / Unknown Venipuncture / Unknown 2023 10:21 AM EDT 2023 10:21 AM EDT us Trish Sun AMMONIA STILL OPERATOR-SQUARE CUTTER LAB BLOOD ORDERABLES Fin al Result [facility] [id number] [place], [place] [phone] * HIV 1/2 Antigen/Antibody Screen with Reflex to Confirmation (2023 10:21 AM EDT) HIV 1/2 Antigen/Antibo dy Screen with Reflex to Confirmation Nonreactive Nonreactive LAB IMMUNOASSAY METHOD 2023 7:37 PM EDT [facility] Blood Venous blood specimen / Unknown Venipuncture / Unknown 2023 10:21 AM EDT 2023 10:21 AM EDT Narrative [facility] - 2023 7:37 PM EDT HIV Ag/Ab screen is performed using the Siemens Maana Mobile HIV Ag/Ab Combo assay which detects the presence of HIV p24 antigen as well as antibodies to HIV-1 (Group M and O) and HIV-2. No laboratory evidence of HIV infection. If acute HIV infection is suspected, consider testing for HIV RNA by PCR (viral load). Trish Sun AMMONIA STILL OPERATOR-SQUARE CUTTER LAB BLOOD ORDERABLES Fin al Result [facility] [address] [facility] [id number] [place] [address] from Last 3 Months or Most Recently Relevant to Health Maintenance Insurance [employer]ICAL [employer] HMO Care Teams Fuel House Attendant Relationship Specialty Start Date End Date Allyssa Robles, RN Registered Nurse Reproductive Endocrinology and Infertility 12/25/23
--- OUTSIDE RECORDS SUMMARY | 2025-01-24 16:06 | XMS_ITS | Encounter Summary ---
Author Organization [facility] Address [address] [place] [address] Phone Care Team Providers Care Automobile Body Repairer Helper Name Role Phone Allyssa Robles RN Unavailable Unavailable Encounter Details Date Type Department Care Team (Late st Contact Info) Description 06/23/2024 Lab Requisition [facility] [address] [place] [phone] America Chavez, UNDERCOVER OPERATOR-PILLAR MAN [address] [place] [address] Female infertility, unspecified 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 Tobacco Use [...] Hold for add-ons. 06/23/2024 10:02 AM EST [facility] Comment:Auto resulted. Blood Venous blood specimen / Unknown 06/23/2024 7:53 AM EST 06/23/2024 8:35 AM EST America Chavez UNDERC[facility] BLOOD ORDERABLES Final Result Performing Organization Address City/[facility]/ZIP Co de Phone Number [facility] [address] [place], [place] [address] * Phleb Charge - Venipuncture (Lab Use Only) (06/23/2024 7:53 AM EST) Blood Venous blood specimen / Unknown 06/23/2024 7:53 AM EST 06/23/2024 8:35 AM EST America Chavez [facility] BLOOD ORDERABLES Final Result Performing Organization Address City/[facility]/ZIP Co de Phone Number [facility] [address] [place] [phone] * Estradiol (06/23/2024 7:53 AM EST) Estradiol 378 pg/mL LAB IMMUNOASSAY METHOD 06/23/2024 9:14 AM EST [facility] Blood Venous blood specimen / Unknown 06/23/2024 7:53 AM EST 06/23/2024 8:35 AM EST Narrative [facility] - 06/23/2024 9:14 AM EST REF VALUES FOLLICULAR PHASE 20-144 MID CYCLE 64-357 LUTEAL PHASE 56-214 POSTMENOPAUSE < 32 PREPUBERTY < 20 FEMALE 10-18Y 8-110 MALE 10-18Y < 20 ADULT MALE < 40 Estradiol measurement is performed using the Faith Cristopher Access Estradiol Immunoassay. Estradiol testing is performed using a different test methodology at [facility] than other [facility]. Direct result comparison should only be made within the same method. Americaroxy Chavez UNDERCOVER OPERATORWellTrackOnePILLAR MAN LAB BLOOD ORDERABLES Final Result Performing Organization Address City/[facility]/ZIP Co de Phone Number [facility] [address] [place] [address] * Progesterone (06/23/2024 7:53 AM EST) [facility] Progesterone 42.6 ng/mL LAB IMMUNOASSAY METHOD 06/23/2024 10:10 AM EST [facility] Blood Venous blood specimen / Unknown 06/23/2024 7:53 AM EST 06/23/2024 8:35 AM EST Narrative [facility] - 06/23/2024 10:10 AM EST REF VALUES Male <0.2-0.8 Follicular Phase <0.2-1.5 Luteal Phase 7.4-15.4 Post Menopausal <0.2-0.2 1ST Trimester 12.0-84.0 2ND Trimester 10.2-58.8 3RD Trimester 46.5-160 Progesterone is performed using the Faith [place] Access Immunoassay. Progesterone testing is performed using a different test methodology at [facility] than other [facility]. Direct result comparison should only be made within the same method. Americaroxy Chavez UNDERCOVER OPERATORWellTrackOnePILLAR MAN LAB BLOOD ORDERABLES Final Result Performing Organization Address City/[facility]/ZIP Co de Phone Number [facility] [id number] [place] [address] documented in this encounter Visit Diagnoses Diagnosis Female infertility, unspecified documented in this encounter Care Teams Automobile Body Repairer Helper Relationship Specialty Start Date End Date Allyssa Robles, RN Registered Nurse Reproductive Endocrinology and Infertility 12/25/23 documented as of this encounter
--- OUTSIDE RECORDS SUMMARY | 2025-01-24 16:06 | XMS_ITS | Encounter Summary ---
Author Organization [facility] Address [address] [place] [address] Phone Care Team Providers Care B And B Gang Worker Name Role Phone Allyssa Robles RN Unavailable Unavailable Encounter Details Date Type Department Care Team (Late st Contact Info) Description 06/06/2024 Lab Requisition [facility] [address] [place] [phone] America Chavez, ASSEMBLY PERSON-FASHION CONSULTANT SELLING [address] [place] [address] Female infertility, unspecified 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 Tobacco Use [...] LAB IMMUNOASSAY METHOD 06/06/2024 11:56 AM EST [facility] Blood Venous blood specimen / Unknown 06/06/2024 7:00 AM EST 06/06/2024 10:58 AM EST Narrative [facility] - 06/06/2024 11:56 AM EST REF VALUES FOLLICULAR PHASE 20-144 MID CYCLE 64-357 LUTEAL PHASE 56-214 POSTMENOPAUSE < 32 PREPUBERTY < 20 FEMALE 10-18Y 8-110 MALE 10-18Y < 20 ADULT MALE < 40 America Chavez [facility] BLOOD ORDERABLES Final Result Performing Organization Address City/[facility] de Phone Number [facility] [address] [place] [address] * Progesterone (06/06/2024 7:00 AM EST) Progesterone 0.8 ng/mL LAB IMMUNOASSAY METHOD 06/10/2024 8:43 PM EST [facility] Comment: Blood Venous blood specimen / Unknown 06/06/2024 7:00 AM EST 06/06/2024 10:58 AM EST Narrative [facility] - 06/10/2024 8:43 PM EST REF VALUES Male <0.2-0.8 Follicular Phase <0.2-1.5 Luteal Phase 7.4-15.4 Post Menopausal <0.2-0.2 1ST Trimester 12.0-84.0 2ND Trimester 10.2-58.8 3RD Trimester 46.5-160 Progesterone is performed using the Faith Triventus Access Immunoassay. Progesterone testing is performed using a different test methodology at [facility] than other [facility]. Direct result comparison should only be made within the same method. America Chavez [facility] BLOOD ORDERABLES Edite d Result - Final [facility] [address] [place] [address] documented in this encounter Visit Diagnoses Diagnosis Female infertility, unspecified documented in this encounter Care Teams B And B Gang Worker Relationship Specialty Start Date End Date Allyssa Robles, MISHEL Registered Nurse Reproductive Endocrinology and Infertility 12/25/23 documented as of this encounter
--- OUTSIDE RECORDS SUMMARY | 2025-01-24 16:06 | XMS_ITS | Encounter Summary ---
Author Organization [facility] Address [address] [place] [address] Phone Care Team Providers Care Hvac Service Technician Name Role Phone Allyssa Robles RN Unavailable Unavailable Encounter Details Date Type Department Care Team (Late st Contact Info) Description 06/30/[address] [facility] [address] [place] [address] Leigh Ann Tuttle MD [address] [facility] Alexia [place], [address] [phone] Female infertility, unspecified 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 Tobacco Use [...] LAB IMMUNOASSAY METHOD 06/30/2024 10:41 AM EST [facility] Comment:Low-level positive H CG results can [...] AM EST 06/30/2024 10:01 AM EST Narrative [facility] - 06/30/2024 10:41 AM EST Total HCG measurement is performed using the Faith Crist[employer] Access Immunoassay which detects intact HCG and free beta HCG subunit. This test is not indicated for use as a tumor marker. HCG testing is performed using a different test methodology at [facility] than other [facility]. Direct result comparison should only be made within the same method. us Leigh Ann Tuttle MD LAB BLOOD ORDERABLES Final Re sult Performing Organization Address City/State/[facility] Co de Phone Number [facility] [address] [place] [phone] documented in this encounter Visit Diagnoses Diagnosis Female infertility, unspecified documented in this encounter Care Teams Hvac Service Technician Relationship Specialty Start Date End Date Allyssa Robles, RN Registered Nurse Reproductive Endocrinology and Infertility 12/25/23 documented as of this encounter
--- OUTSIDE RECORDS SUMMARY | 2025-01-24 16:06 | XMS_ITS | Encounter Summary ---
Author Organization [facility] Address [address] [place] [address] Care Team Providers Care Wood Scaler Name Role Phone Unavailable Primary Care Provider Unavailabl e Encounter Details Date Type Department Care Team (Late st Contact Info) Description 01/16/2025 Bamboo flowsheet [facility] David ZACARIAS [address] [place] [address] Layo Courtney DO [address] [facility] [place] [address] 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 Tobacco Use [...] PM EDT Routine NOMS David ZACARIAS [address] [facility] [place] [address] Maria M Guerrero, MARGARITO [address] [facility] [place] [address] documented as of this encounter Visit Diagnoses Not on filedocumented in this encounter
--- OUTSIDE RECORDS SUMMARY | 2025-01-24 16:06 | XMS_ITS ---
Author Organization [facility] Address [address] [place] [address] Phone Care Team Providers Care Basketball Assembler Name Role Phone Allyssa Robles RN Unavailable Unavailable Fertility Core Status:Enrolled (Active) Start date:02/24/2024 Enrollment date:02/29/2024 Enrollment reason:Identified from a specialty prescription Current support & services provided:Refill Management, Benefits and PA Management Linked medications:lidocaine/prilocaine (Active), progesterone (Active), transparent dressing () Continued Care and Services Coordination
--- OUTSIDE RECORDS SUMMARY | 2025-01-24 16:06 | XMS_ITS | Encounter Summary ---
Author Organization [facility] Address [address] [place] [address] Phone Care Team Providers Care Board Stacker Name Role Phone Allyssa Robles RN Unavailable Unavailable Encounter Details Date Type Department Care Team (Late st Contact Info) Description 06/13/2024 Lab Requisition [facility] [address] [place] [address] Juan Chavarria MD 1000 [facility] Alexia [place], [facility] [address] [place], [place] [phone] Female infertility, unspecified 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 Tobacco Use [...] LAB IMMUNOASSAY METHOD 06/13/2024 2:07 PM EST [facility] Blood Venous blood specimen / Unknown 06/13/2024 11:38 AM EST 06/13/2024 12:46 PM EST Narrative [facility] - 06/13/2024 2:07 PM EST REF VALUES Male <0.2-0.8 Follicular Phase <0.2-1.5 Luteal Phase 7.4-15.4 Post Menopausal <0.2-0.2 1ST Trimester 12.0-84.0 2ND Trimester 10.2-58.8 3RD Trimester 46.5-160 Progesterone is performed using the Faith Crist[employer] Access Immunoassay. Progesterone testing is performed using a different test methodology at [facility] than other [facility]. Direct result comparison should only be made within the same method. us Juan Chavarria MD LAB BLOOD ORDERABLES Final R esult [facility] [address] [place] [address] documented in this encounter Visit Diagnoses Diagnosis Female infertility, unspecified documented in this encounter Care Teams Board Stacker Relationship Specialty Start Date End Date Allyssa Robles, RN Registered Nurse Reproductive Endocrinology and Infertility 12/25/23 documented as of this encounter
--- OUTSIDE RECORDS SUMMARY | 2025-01-24 16:06 | XMS_ITS | Encounter Summary ---
Author Organization [facility] Address [address] [place] [address] Phone Care Team Providers Care Molder Name Role Phone Allyssa Robles RN Unavailable Unavailable Encounter Details Date Type Department Care Team (Late st Contact Info) Description 06/07/2024 Lab Requisition [facility] [address] [place] [address] America Chavez, LEAD INSTRUCTOR/FLIGHT ATTENDANT-EDI MANAGER [address] [place] [address] Female infertility, unspecified 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 Tobacco Use [...] LAB IMMUNOASSAY METHOD 06/10/2024 8:33 PM EST [facility] Comment: Blood Venous blood specimen / Unknown 06/07/2024 8:45 AM EST 06/07/2024 10:22 AM EST Narrative [facility] - 06/10/2024 8:33 PM EST REF VALUES Male <0.2-0.8 Follicular Phase <0.2-1.5 Luteal Phase 7.4-15.4 Post Menopausal <0.2-0.2 1ST Trimester 12.0-84.0 2ND Trimester 10.2-58.8 3RD Trimester 46.5-160 Progesterone is performed using the Faith ONE Change Access Immunoassay. Progesterone testing is performed using a different test methodology at [facility] than other [facility]. Direct result comparison should only be made within the same method. America Chavez APRNYouDroop LTDEDI MANAGER LAB BLOOD ORDERABLES Edite d Result - Final Performing Organization Address City/State/[facility] Co de Phone Number [facility] [address] [place] [phone] * Estradiol (06/07/2024 8:45 AM EST) Estradiol 2,870 pg/mL LAB IMMUNOASSAY METHOD 06/07/2024 10:43 AM EST [facility] Blood Venous blood specimen / Unknown 06/07/2024 8:45 AM EST 06/07/2024 10:22 AM EST Narrative [facility] - 06/07/2024 10:43 AM EST REF VALUES FOLLICULAR PHASE 20-144 MID CYCLE 64-357 LUTEAL PHASE 56-214 POSTMENOPAUSE < 32 PREPUBERTY < 20 FEMALE 10-18Y 8-110 MALE 10-18Y < 20 ADULT MALE < 40 America Chavez LEAD INSTRUCTOR/FLIGHT ATTENDANT-EDI MANAGER LAB BLOOD ORDERABLES Final Result [facility] [address] [place] [address] documented in this encounter Visit Diagnoses Diagnosis Female infertility, unspecified documented in this encounter Care Teams Molder Relationship Specialty Start Date End Date Allyssa Robles, MISHEL Registered Nurse Reproductive Endocrinology and Infertility 12/25/23 documented as of this encounter
--- OUTSIDE RECORDS SUMMARY | 2025-01-24 16:06 | XMS_ITS | Encounter Summary ---
Author Organization [facility] Address [address] [place] [address] Care Team Providers Care Lace Sewer Name Role Phone Unavailable Primary Care Provider Unavailabl e Encounter Details Date Type Department Care Team (Late st Contact Info) Description 11/18/2024 Abstract [facility] ZACARIAS [address] [place] [address] Layo Courtney DO [address] [place] [address] 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 Tobacco Use Types Packs/Day [...] 1:50 PM EDT Routine [facility]ACARI[facility] [address] [place] [address] Maria M Guerrero NP [address] [place] [address] documented as of this encounter Visit Diagnoses Not on filedocumented in this encounter
--- OUTSIDE RECORDS SUMMARY | 2025-01-24 16:06 | XMS_ITS | Encounter Summary ---
Author Organization [facility] Address [address] [place] [address] [place] [address] Care Team Providers Care Facility Worker Name Role Phone Unavailable Primary Care Provider Unavailabl e Encounter Details Date Type Department Care Team (Late st Contact Info) Description 03/23/2023 Abstract [facility] Yan[facility] ZACARIAS [address] [place] [address] Cassy Licea LPN [address] [facility] [place] [address] [place] [address] 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 Tobacco Use Types Packs/Day [...] 1:50 PM EDT Routine [facility] ZACARI[facility] [address] [place] [address] Maria M Guerrero, MARGARITO [address] [place] [address] documented as of this encounter Visit Diagnoses Not on filedocumented in this encounter
--- OUTSIDE RECORDS SUMMARY | 2025-01-24 16:06 | XMS_ITS | Encounter Summary ---
Author Organization [facility] Address [address] [place] [address] Care Team Providers Care Private Security Guard Name Role Phone Unavailable Primary Care Provider Unavailabl e Encounter Details Date Type Department Care Team (Late st Contact Info) Description 11/08/2024 Abstract [facility] Yaniar ZACARIAS [address] [facility] [address] Emilia Donahue MA 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 Tobacco [...] 1:50 PM EDT Routine [facility] [address] [facility] [address] Maria M Guerrero, MARGARITO [address] [facility] [place] [address] documented as of this encounter Visit Diagnoses Not on filedocumented in this encounter
--- OUTSIDE RECORDS SUMMARY | 2025-01-24 16:12 | XMS_ITS | CCD ---
Author Organization [facility] CliniSydc Care Team Providers Care Yardage Caller Name Role Phone Rachana LYONS Primary Care Physician SHERWIN ., DR HORTA Attending Unavailable SHERWIN ., DR HORTA Admitting Unavailable SHERWIN ., DR HORTA Consulting Unavailable SHERWIN ., DR HORTA Admitting Unavailable SHERWIN ., DR HORTA Consulting Unavailable SHERWIN ., DR HORTA Attending Unavailable UNLU, RACQUEL Consulting Unavailable Princess Rapp Primary Care Physician lAlyssa Robles RN Unavailable Unavailable Mallory Jauregui Attending [...] Allergy 03-16-2023 Unknown (qualifier value), Unknown [facility] Work Phone: (20 sources) Latex; Translations: [Latex] Drug allergy 03-16-[address] [facility] Work Phone: (20 sources) nickel; Translations: [Nickel] Drug Allergy 03-16-2023 Rash, Itching [facility] Work Phone: Medications Current [...] tablet Indications: Pruritus of in second trimester ([facility]) Take 1 tablet (10 mg) by mouth [...] Do not use to face, armpits, groin., [facility]/pharmacy #[id number], 162, cm, 10/02/23 11:23:00 EDT, Height/Length Dosing, 76.7, kg, 10/02/23 11:23:00 EDT, Weight Dosing Start Date: 10/02/23 Status: Ordered Start: 02-10-2022 clobetasol pro pionate 0.05% top oint 1 bonifacio, Topical, BID, 45 gram, Refill(s) 0, Apply a thin film to affected area. Do not use to face, armpits, groin., [facility], 160, cm, 07/24/21 17:02:00 EDT, Height/Length Dosing, 71.6, kg, 07/24/21 17:02:00 EDT, Weight Dosing Start Date: 02/10/22 Status: Ordered Start: 01-29-2021 clobetasol pro pionate 0.05% top oint 1 bonifacio, Topical, BID, 45 gram, Refill(s) 1, [facility] 1985, 160, cm, 01/29/21 [...] spasm, # 30 tab(s), Refills(s) 1, Pharmacy: [facility]/pharmacy #[id number], 162, cm, 02/19/23 [...] Refill(s) 6, Therapeutic tx; may refill early, [facility] 1986, 160, cm, 09/27/20 [...] Refill(s) 6, Therapeutic tx; may refill early, [facility], 160, cm, 09/27/20 [...] tablets Indications: Pruritus of in second trimester ([facility]) Day 1: 6 tablets Day 2: 5 tablets Day 3: 4 tablets Day 4: 3 tablets Day 5: 2 tablets Day 6: 1 tablet 21 tablet 10/04/2024 12/06/2024 Discontinued Start: 10-04-2024 methylPREDNISo lone (Medrol Dospak) 4 MG tablets Indications: Pruritus of in second trimester ([facility]) Day 1: 6 tablets Day 2: 5 [...] hour of each main meal containing fat, [facility] 1986, 160, cm, 07/24/21 17:02:00 [...] Take 1 each by mouth Daily Active huazweof85-vddr-oie ic-omega3 29-1-400 mg combo pack,tablet and cap,DR (14 sources) qoosllwg29-xsxm- f olic-omega3 29-1-400 mg combo pack,tablet and [...] Daily, # 90 tab(s), Refills(s) 3, Pharmacy: [facility]/pharmacy #[id number], 162, cm, 10/02/23 11:23:00 EDT, Height/Length Dosing, 76.7, kg, 10/02/23 11:23:00 EDT, Weight Dosing Start Date: 10/02/23 Status: Ordered Start: 08-27-2023 take 2 tablets by mo uth once daily Topamax 25 mg Tab 50 mg = 2 tab(s), Oral, Daily, # 180 tab(s), Refills(s) 0, Pharmacy: [facility]/pharmacy #[id number], 162, cm, 08/27/23 [...] 4-7, # 90 tab(s), Refills(s) 1, Pharmacy: [facility]/pharmacy #[id number], 162, cm, 02/19/23 [...] OB BPP W NON-STRESS on 01-18-[address] [address] Ultrasound Report Signed Patient: SYDNEY ROMERO MR#: [id number] : 1995 Acct:[id number] Age/Sex: 29 / F ADM Date: 01/17/25 Loc: US Attending Dr: Layo Courtney D.O. Ordering Physician: Layo Courtney D.O. Date of Service: 01/17/25 Procedure(s): US OB BPP w non-stress Accession Number(s): [id number] cc: Layo Courtney D.O.; Physician,Non-Staff [place] [address] Patient Name: SYDNEY ROMERO MRN: [facility]:[id number] date: 1995 Sex: F Assigned Patient Location: [facility] Current Patient Location: Accession/Order Number: [id number] Exam Date: 01/17/2025 16:08 Report Date: 01/18/2025 [...] [place] M.D. 01/18/2025 9:02 AM Dictation Location: [employer] Electronically authenticated by: [id number] Y Date: 01/18/2025 09:02 Dictated By: Mariela [place]edo M.D. Signed By: 01/18/25904 DD/ 1 TD/TT: Night Auditor: [facility] Radiology, Radiologist, - 01/18/2025 [place] [address] Ultrasound Report Signed Patient: SYDNEY ROMERO MR#: [id number] : 1995 Acct:[id number] Age/Sex: 29 / F ADM Date: 01/17/25 Loc: US Attending Dr: Layo Courtney D.O. Ordering Physician: Layo Courtney D.O. Date of Service: 01/17/25 Procedure(s): US OB BPP w non-stress Accession Number(s): [id number] cc: Layo Courtney D.O.; Physician,Non-Staff [place] [address] Patient Name: SYDNEY ROMERO MRN: [facility]:[id number] date: 1995 Sex: F Assigned Patient Location: [facility] Current Patient Location: Accession/Order Number: [id number] Exam Date: 01/17/2025 16:08 Report Date: 01/18/2025 [...] [place] M.D. 01/18/2025 9:02 AM Dictation Location: [employer] Electronically authenticated by: [id number] Y Date: 01/18/2025 09:02 Dictated By: Mariela [place] M.D. Signed By: 01/18/25904 DD/ 1 TD/TT: Night Auditor: [facility] Radiology Study observation (narrative) [facility] US OB BPP W NON-STRESS Ordered By: Radiologist Radiology on 01-18-2025 [facility] Work Phone: Urinalysis macro (dipstick) panel (U)on 01-16-2025 Bilirubin, UA Negative Negative - 4(70) +++ mg/dL [facility] Blood, UA Negative Negative - 50 Jose/mcL [facility] Clarity, UA Clear [facility] Color, UA Yellow [facility] Glucose, UA Negative Negative - 2000(110) ++++ mg/dL [facility] Interpretation and review of laboratory results Abnormal [facility] Ketones, UA Negative Negative - 160(16) ++++ mg/dL [facility] Leukocytes, UA Positive Negative - 500+++ Onel/mcL [facility] Nitrite, UA Negative Negative - Positive [facility] pH, UA 6 5 - 9 [facility] Protein, UA Positive Negative - 2000(20) ++++ mg/dL [facility] Spec Grav, UA 1.03 1 - 1.03 [facility] Urobilinogen, UA 1.0 0.2 - 12 mg/dL [facility] US OB BPP W NON-STRESS on 01-10-2025 [place] [address] Ultrasound Report Signed Patient: ZIEBERSYDNEY MR#: [id number] : 1995 Acct:[id number] Age/Sex: 29 / F ADM Date: 01/10/25 Loc: US Attending Dr: Layo Courtney D.O. Ordering Physician: Layo Courtney D.O. Date of Service: 01/10/25 Procedure(s): US OB BPP w non-stress Accession Number(s): [id number] cc: Layo Courtney D.O.; Physician,Non-Staff [place] [address] Patient Name: SYDNEY ROMERO MRN: [facility]:[id number] date: 1995 Sex: F Assigned Patient Location: US Current Patient Location: Accession/Order Number: [id number] Exam Date: 01/10/2025 16:03 Report Date: 01/10/2025 [...] Romero M.D. 01/10/2025 9:07 PM Dictation Location: [place] [address] Electronically authenticated by: [id number] Y Date: 01/10/2025 21:07 Dictated By: Bernabe Romero M.D. Signed By: 01/10/252109 DD/ 06 TD/TT: Night Auditor: [facility] Radiology, Radiologist, - 01/10/2025 [place] [address] Ultrasound Report Signed Patient: SYDNEY ROMERO MR#: [id number] : 1995 Acct:[id number] Age/Sex: 29 / F ADM Date: 01/10/25 Loc: US Attending Dr: Layo Courtney D.O. Ordering Physician: Layo Courtney D.O. Date of Service: 01/10/25 Procedure(s): US OB BPP w non-stress Accession Number(s): [id number] cc: Layo Courtney D.O.; Physician,Non-Staff [place] [address] Patient Name: SYDNEY ROMERO MRN: [facility]:[id number] date: 1995 Sex: F Assigned Patient Location: US Current Patient Location: Accession/Order Number: [id number] Exam Date: 01/10/2025 16:03 Report Date: 01/10/2025 [...] Romero M.D. 01/10/2025 9:07 PM Dictation Location: [place] [address] Electronically authenticated by: [id number] Y Date: 01/10/2025 21:07 Dictated By: Bernabe Romero M.D. Signed By: 01/10/252109 DD/ 06 TD/TT: Night Auditor: [facility] Radiology Study observation (narrative) [facility] US OB BPP W NON-STRESS Ordered By: Radiologist Radiology on 01-10-2025 [facility] Work Phone: Urinalysis macro (dipstick) panel (U)on 01-03-2025 Bilirubin, UA Negative Negative - 4(70) +++ mg/dL [facility] Blood, UA Negative Negative - 50 Jose/mcL [facility] Clarity, UA Clear [facility] Color, UA Yellow [facility] Glucose, UA Trace Negative - 2000(110) ++++ mg/dL [facility] Interpretation and review of laboratory results Abnormal [facility] Ketones, UA Negative Negative - 160(16) ++++ mg/dL [facility] Leukocytes, UA Positive Negative - 500+++ Onel/mcL [facility] Nitrite, UA Negative Negative - Positive [facility] pH, UA 8 5 - 9 [facility] Protein, UA Negative Negative - 2000(20) ++++ mg/dL [facility] Spec Grav, UA 1.015 1 - 1.03 [facility] Urobilinogen, UA 1.0 0.2 - 12 mg/dL [facility] US OB FOLLOW UP TRANSABDOMIN AL APPROACHon [...] II, MD, PHD at 22-Dec-2024 08:03:51 AM [facility] Normal Not Available Comment on above: Order Comment: US OB SCAN FOR GROWTH Estimated Date of Delivery: 03/01/25 Gestational Age as of 12/06/2024: 27w6d Urinalysis macro (dipstick) panel (U)on 12-19-2024 Bilirubin, UA Negative Negative - 4(70) +++ mg/dL [facility] Blood, UA Positive Negative - 50 Jose/mcL [facility] Clarity, UA Clear [facility] Color, UA Yellow [facility] Glucose, UA Negative Negative - 1999(110) ++++ mg/dL [facility] Interpretation and review of laboratory results Abnormal [facility] Ketones, UA Negative Negative - 160(16) ++++ mg/dL [facility] Leukocytes, UA Positive Negative - 500+++ Onel/mcL [facility] Comment on above: 3+ Nitrite, UA Negative Negative - Positive [facility] pH, UA 6 5 - 9 [facility] Protein, UA Positive Negative - 1999(20) ++++ mg/dL [facility] Spec Grav, UA 1.03 1 - 1.03 [facility] Urobilinogen, UA 1.0 0.2 - 12 mg/dL [facility] GLUCOSE TOLERANCE 3 HOURon 0 12-06-2024 GLUCOSE TOLERANCE 3 HOUR mg/dL [facility] Comment on above: GLU FAST 90 (<95) Co l: 12/06/24 1126 GLU 1HR 143 (<180) Col: 12/06/24 1235 GLU 2HR 132 (<155) Col: 12/06/24 1327 GLU 3HR 81 (<140) Col: 12/06/24 1432 [facility] Urinalysis macro (dipstick) panel (U)on 12-06-2024 Bilirubin, UA Negative Negative - 4(70) +++ mg/dL [facility] Blood, UA Negative Negative - 50 Jose/mcL [facility] Clarity, UA Clear [facility] Color, UA Yellow [facility] Glucose, UA Negative Negative - 1999(110) ++++ mg/dL [facility] Interpretation and review of laboratory results Abnormal [facility] Ketones, UA Negative Negative - 160(16) ++++ mg/dL [facility] Leukocytes, UA 3+ Negative - 500+++ Onel/mcL [facility] Nitrite, UA Negative Negative - Positive [facility] pH, UA 8 5 - 9 [facility] Protein, UA Negative Negative - 2000(20) ++++ mg/dL [facility] Spec Grav, UA 1.015 1 - 1.03 [facility] Urobilinogen, UA 1.0 0.2 - 12 mg/dL [facility] ALL CBC WITH AUTO DIFFon BASOPHILS ABSOLUTE AUTO 0 N [facility] Basophils/100 WBC (Bld) 0.3 % 0.2 - 2.0 % [facility] Eosinophils/100 WBC (Bld) 1.1 % 0.9 - 7.0 % [facility] Erythrocyte distribution width (RBC) [Ratio] 12.4 % 11.0 - 15.0 % [facility] Hematocrit (Bld) [Volume fraction] 38.9 % 36.0 - 48.0 % [facility] Hemoglobin (Bld) [Mass/Vol] 13.6 g/dL 12.0 - 16.0 g/dL [facility] IMMATURE GRANULOCYTES ABS AUTO 0.13 High [facility] Immature granulocytes/100 WBC (Bld) 1.4 % High 0.0 - 0.5 % [facility] Interpretation and review of laboratory results Abnormal [facility] LYMPHOCYTES ABSOLUTE AUTO 1.7 [facility] Lymphocytes/100 WBC (Bld) 18.9 % Low 20.5 - 60. 0 % [facility] MCH (RBC) [Entitic mass] 31.5 pg 26. 7 - 34.0 pg [facility] MCHC (RBC) [Mass/Vol] 35 g/dL 29.9 - 35.2 g/dL [facility] MCV (RBC) [Entitic vol] 90 fL 81.0 - 99.0 fL [facility] MONOCYTES ABSOLUTE AUTO 0.4 N [facility] Monocytes/100 WBC (Bld) 4.6 % 1.7 - 12.0 % [facility] NEUTROPHILS ABSOLUTE AUTO 6.8 High [facility] Neutrophils/100 WBC (Bld) 73.7 % 43.0 - 75. 0 % [facility] Platelet mean volume (Bld) [Entitic vol] 11.3 fL 9.5 - 13.5 fL [facility] EO # 0.1 [facility] PLT 142 Low [facility] RBC 4.32 [facility] WBC 9.2 [facility] Urinalysis macro (dipstick) panel (U)on 11-09-2024 Bilirubin, UA Negative Negative - 4(70) +++ mg/dL [facility] Blood, UA Negative Negative - 50 Jose/mcL [facility] Clarity, UA Clear [facility] Color, UA Yellow [facility] Glucose, UA Negative Negative - 1999(110) ++++ mg/dL [facility] Interpretation and review of laboratory results Normal [facility] Ketones, UA Negative Negative - 160(16) ++++ mg/dL [facility] Leukocytes, UA Negative Negative - 500+++ Onel/mcL [facility] Nitrite, UA Negative Negative - Positive [facility] pH, UA 5.5 5 - 9 [facility] Protein, UA Negative Negative - 1999(20) ++++ mg/dL [facility] Spec Grav, UA 1.025 1 - 1.03 [facility] Urobilinogen, UA 1.0 0.2 - 12 mg/dL [facility] Urinalysis macro (dipstick) panel (U)on 10-17-2024 Bilirubin, UA Negative Negative - 4(70) +++ mg/dL [facility] Blood, UA Negative Negative - 50 Jose/mcL [facility] Clarity, UA Clear [facility] Color, UA Yellow [facility] Glucose, UA Negative Negative - 1999(110) ++++ mg/dL [facility] Interpretation and review of laboratory results Abnormal [facility] Ketones, UA Negative Negative - 160(16) ++++ mg/dL [facility] Leukocytes, UA Positive Negative - 500+++ Onel/mcL [facility] Comment on above: small Nitrite, UA Negative Negative - Positive [facility] pH, UA 7 5 - 9 [facility] Protein, UA Negative Negative - 1999(20) ++++ mg/dL [facility] Spec Grav, UA 1.015 1 - 1.03 [facility] Urobilinogen, UA 0.2 0.2 - 12 mg/dL [facility] ALL CBC WITH AUTO DIFFon BASOPHILS ABSOLUTE AUTO 0 N [facility] Basophils/100 WBC (Bld) 0.2 % 0.2 - 2.0 % [facility] Eosinophils/100 WBC (Bld) 3.2 % 0.9 - 7.0 % [facility] Erythrocyte distribution width (RBC) [Ratio] 12.5 % 11.0 - 15.0 % [facility] Hematocrit (Bld) [Volume fraction] 37.9 % 36.0 - 48.0 % [facility] Hemoglobin (Bld) [Mass/Vol] 13.2 g/dL 12.0 - 16.0 g/dL [facility] IMMATURE GRANULOCYTES ABS AUTO 0.14 High [facility] Immature granulocytes/100 WBC (Bld) 1.5 % High 0.0 - 0.5 % [facility] Interpretation and review of laboratory results Abnormal [facility] LYMPHOCYTES ABSOLUTE AUTO 2 [facility] Lymphocytes/100 WBC (Bld) 20.8 % 20.5 - 60. 0 % [facility] MCH (RBC) [Entitic mass] 30.9 pg 26. 7 - 34.0 pg [facility] MCHC (RBC) [Mass/Vol] 34.8 g/dL 29.9 - 35.2 g/dL [facility] MCV (RBC) [Entitic vol] 88.8 fL 81.0 - 99.0 fL [facility] MONOCYTES ABSOLUTE AUTO 0.7 N [facility] Monocytes/100 WBC (Bld) 7.2 % 1.7 - 12.0 % [facility] NEUTROPHILS ABSOLUTE AUTO 6.3 [facility] Neutrophils/100 WBC (Bld) 67.1 % 43.0 - 75. 0 % [facility] Platelet mean volume (Bld) [Entitic vol] 11.1 fL 9.5 - 13.5 fL [facility] EO # 0.3 [facility] PLT 153 [facility] RBC 4.27 [facility] WBC 9.4 [facility] US OB DETAIL ANATOMYon 10-07-2024 US [...] EFW (oz) 12 oz EFW by: Hadlock ([id number]) Extended Legal Support Assistant 6.0 mm CM 4.4 mm 36% Nicolaides [...] Normal LVOT view: Normal 3-vessel view: Normal 1-fmxtkt-kyueveg view: Normal Heart / Thorax Situs: situs [...] Normal L (more content not included)... Normal US for pregnancyon 5 Interpreted by: Ad [...] EFW (oz) 12 oz EFW by: Hadlock ([id number]) Extended Legal Support Assistant 6.0 mm CM 4.4 mm 36% Nicolaides [...] Normal LVOT view: Normal 3-vessel view: Normal 8-azemsm-idnzbkj view: Normal Heart / Thorax Situs: situs [...] Assisted Reproductive Technology History ====== General History Fathpn646 cm Height (ft)5 ft Height (in)3 in Previous Outcomes Gravida1 Para0 Maternal Assessment Qrgnps390 cm Height (ft)5 ft Height (in)3 in Nbvnos52 kg Weight (lb)165 lb Weight gain0 kg [...] 87% Hadlock Femur32.4 mm20w 1d 73% Hadlock Zginnaa62.4 mm 45% [facility]itty HC / AC1.05 2% Hadlock WFN768 g20w 1d 91% Hadlock EFW (lb)0 lb EFW (oz)12 oz EFW by:Hadlock ([id number]-FL) Extended Vp6.0 mm CM4.4 mm 36% Nicolaides Nasal bone4.7 mm Head / Face / Neck Cephalic index0.74 10% Nicolaides Nasal bone:present Extremities / Bony Struc FL / BPD0.74 92% Hadlock FL / HC0.20 96% Hadlock FL / AC0.21 35% Hadlock Other Structures ZQT287 bpm Anatomy Cranium:Normal Lateral ventricles:Normal Choroid plexus:Normal [...] view:Normal RVOT view:Normal LVOT view:Normal 3-vessel view:Normal 8-halmmt-kwwhmul view:Normal Heart / Thorax Situs:situs solitus (normal) [...] Lt lower leg:Normal (more content not included)... [facility] Work Phone: Source Facility: [facility] Interpreted by: Ad Ovalle Indication ======== Screening [...] EFW (oz) 12 oz EFW by: Hadlock ([id number]-FL) Extended Legal Support Assistant 6.0 mm CM 4.4 mm 36% Nicolaides [...] Normal LVOT view: Normal 3-vessel view: Normal 3-wdgyam-vpavuap view: Normal Heart / Thorax Situs: situs [...] Radiology, Radiologist, MD - 10/07/2024 Source Facility: [facility] Interpreted by: Ad Ovalle Indication ======== Screening [...] EFW (oz) 12 oz EFW by: Hadlock ([id number]-HF-JR-FL) Extended Legal Support Assistant 6.0 mm CM 4.4 mm 36% Nicolaides [...] Normal LVOT view: Normal 3-vessel view: Normal 0-wtohhe-kdqoemc view: Normal Heart / Thorax Situs: situs [...] Normal Lt forear (more content not included)... [facility] Radiology Study observation (narrative) [facility] Work Phone: Radiology Study observation (narrative) [facility] US for pregnancyOrdered By: Ad Ovalle on 10-07-2024 [facility] Work Phone: US for pregnancyOrdered By: Radiologist Radiology on 10-07-2024 [facility] Work Phone: RECURRENT VAGINITIS (HTRX)on 09-07-2024 ATOPOBIUM VAGINAE 0 [facility] ATOPOBIUM VAGINAE Not detected [facility] BVAB 2,3 (BACTERIAL VAGINOSIS ASSOCIATED BACTERIA 2, 3); MOBILUNCUS SPP 0 [facility] BVAB 2,3 (BACTERIAL VAGINOSIS ASSOCIATED BACTERIA 2, 3); MOBILUNCUS SPP Not detected [facility] PRESTON ALBICANS, PARAPSILOSIS, TROPICALIS 0 [facility] PRESTON ALBICANS, PARAPSILOSIS, TROPICALIS Not detected [facility] PRESTON GLABRATA 0 [facility] PRESTON GLABRATA Not detected [facility] PRESTON KRUSEI 0 [facility] PRESTON KRUSEI Not detected [facility] CHLAMYDIA TRACHOMATIS 0 [facility] CHLAMYDIA TRACHOMATIS Not detected N [facility] GARDNERELLA VAGINALIS 0 [facility] GARDNERELLA VAGINALIS Not detected N [facility] MEGASPHAERA (TYPES 1, 2) 0 [facility] MEGASPHAERA (TYPES 1, 2) Not detected [facility] MYCOPLASMA GENITALIUM 0 [facility] MYCOPLASMA GENITALIUM Not detected N [facility] NEISSERIA GONORRHOEAE 0 [facility] NEISSERIA GONORRHOEAE Not detected N [facility] TRICHOMONAS VAGINALIS 0 [facility] TRICHOMONAS VAGINALIS Not detected N [facility] Urinalysis macro (dipstick) panel (U)on 09-06-2024 Bilirubin, UA Negative Negative - 4(70) +++ mg/dL [facility] Blood, UA Negative Negative - 50 Jose/mcL [facility] Clarity, UA Clear [facility] Color, UA Yellow [facility] Glucose, UA Negative Negative - 1999(110) ++++ mg/dL [facility] Interpretation and review of laboratory results Abnormal [facility] Ketones, UA Negative Negative - 160(16) ++++ mg/dL [facility] Leukocytes, UA Positive Negative - 500+++ Onel/mcL [facility] Comment on above: small Nitrite, UA Negative Negative - Positive [facility] pH, UA 6 5 - 9 [facility] Protein, UA Negative Negative - 1999(20) ++++ mg/dL [facility] Spec Grav, UA 1.03 1 - 1.03 [facility] Urobilinogen, UA 0.2 0.2 - 12 mg/dL [facility] ALL CBC WITH AUTO DIFFon BASOPHILS ABSOLUTE AUTO 0 N [facility] Basophils/100 WBC (Bld) 0.2 % 0.2 - 2.0 % [facility] Eosinophils/100 WBC (Bld) 2.9 % 0.9 - 7.0 % [facility] Erythrocyte distribution width (RBC) [Ratio] 12 % 11.0 - 15.0 % [facility] Hematocrit (Bld) [Volume fraction] 39.3 % 36.0 - 48.0 % [facility] Hemoglobin (Bld) [Mass/Vol] 13.6 g/dL 12.0 - 16.0 g/dL [facility] IMMATURE GRANULOCYTES ABS AUTO 0.06 High [facility] Immature granulocytes/100 WBC (Bld) 0.7 % High 0.0 - 0.5 % [facility] Interpretation and review of laboratory results Abnormal [facility] LYMPHOCYTES ABSOLUTE AUTO 2.1 [facility] Lymphocytes/100 WBC (Bld) 25.4 % 20.5 - 60. 0 % [facility] MCH (RBC) [Entitic mass] 30.2 pg 26. 7 - 34.0 pg [facility] MCHC (RBC) [Mass/Vol] 34.6 g/dL 29.9 - 35.2 g/dL [facility] MCV (RBC) [Entitic vol] 87.3 fL 81.0 - 99.0 fL [facility] MONOCYTES ABSOLUTE AUTO 0.5 N [facility] Monocytes/100 WBC (Bld) 5.8 % 1.7 - 12.0 % [facility] NEUTROPHILS ABSOLUTE AUTO 5.5 [facility] Neutrophils/100 WBC (Bld) 65 % 43.0 - 75. 0 % [facility] Platelet mean volume (Bld) [Entitic vol] 10.9 fL 9.5 - 13.5 fL [facility] TBH EO # 0.2 [facility]H PLT 151 [facility] TB RBC 4.5 [facility] TB WBC 8.4 [facility] Urinalysis macro (dipstick) panel (U)on 08-08-2024 Bilirubin, UA Negative Negative - 4(70) +++ mg/dL [facility] Blood, UA Negative Negative - 50 Jose/mcL [facility] Clarity, UA Clear [facility] Color, UA Yellow [facility] Glucose, UA Negative Negative - 1999(110) ++++ mg/dL [facility] Interpretation and review of laboratory results Abnormal [facility] Ketones, UA Negative Negative - 160(16) ++++ mg/dL [facility] Leukocytes, UA Positive Negative - 500+++ Onel/mcL [facility] Comment on above: small Nitrite, UA Negative Negative - Positive [facility] pH, UA 6 5 - 9 [facility] Protein, UA Negative Negative - 1999(20) ++++ mg/dL [facility] Spec Grav, UA 1.025 1 - 1.03 [facility] Urobilinogen, UA 0.2 0.2 - 12 mg/dL [facility] HCG ( test) Ql (U)o n 07-29-2024 Interpretation and review of laboratory results Abnormal [facility] Preg Test, Ur Positive Negative [facility] Urinalysis macro (dipstick) panel (U)on 07-29-2024 Bilirubin, UA Negative Negative - (70) +++ mg/dL [facility] Blood, UA Positive Negative - 50 Jose/mcL [facility] Comment on above: trace Clarity, UA Clear [facility] Color, UA Yellow [facility] Glucose, UA Negative Negative - 1999(110) ++++ mg/dL [facility] Interpretation and review of laboratory results Abnormal [facility] Ketones, UA Negative Negative - 160(16) ++++ mg/dL [facility] Leukocytes, UA Positive Negative - 500+++ Onel/mcL [facility] Comment on above: small Nitrite, UA Negative Negative - Positive [facility] pH, UA 5.5 5 - 9 [facility] Protein, UA Negative Negative - 1999(20) ++++ mg/dL [facility] Spec Grav, UA 1.03 1 - 1.03 [facility] Urobilinogen, UA 0.2 0.2 - 12 mg/dL [facility] PROGESTERONEon 07-12-2024 PROGESTERONE 53.5 ng/mL Normal [facility] Comment on above: Result Comment: Refe rence Ranges Female Follicular Phase < 1.0 Luteal Phase 2.6-21.5 Post menopausal < 0.5 1st Trimester 4.1-34.0 2nd Trimester 24.0-76.0 3rd Trimester 52.0-302.0 Performed By: #### 7 45 #### [facility] [address] [facility], [address] [place] [address] [employer] Administrator: Alexey Boogie MD OB TRANSVAGINALon 025 US [...] transvaginal evaluation for early dating. View: Sufficient [facility] Choriogonadotropin.beta subu niton 06-30-2024 HCG.beta subunit Qn 6575 m[IU]/mL High <5 [facility] Comment on above: Order Comment: Total HCG measurement is performed using the Faith Crist[employer] Access Immunoassay which detects intact HCG and free beta HCG subunit. This test is not indicated for use as a tumor marker. HCG testing is performed using a different test methodology at [facility]. Direct result comparison should only [...] By: #### 2 1198-7 #### JOSEPH ESQUIVEL ([id number]) [facility] ([facility]) [address] [place] [address] Choriogonadotropin.beta subu niton 06-23-2024 HCG.beta subunit Qn 330 m[IU]/mL High <[address] [facility] Comment on above: Order Comment: Total HCG measurement is performed using the Faith Crist[employer] Access Immunoassay which detects intact HCG and free beta HCG subunit. This test is not indicated for use as a tumor marker. HCG testing is performed using a different test methodology at [facility]. Direct result comparison should only [...] By: #### 2 1198-7 #### JOSEPH ESQUIVEL ([id number]) [facility] ([facility]) [address] [place] [address] Estradiolon 06-23-2024 E2 [Mass/Vol] 378 pg/mL Normal [facility] Comment on above: Order Comment: REF V ALUES FOLLICULAR PHASE 20-144 MID CYCLE 64-357 LUTEAL PHASE 56-214 POSTMENOPAUSE < 32 PREPUBERTY < 20 FEMALE 10-18Y 8-110 MALE 10-18Y < 20 ADULT MALE < 40 Estradiol measurement is performed using the Faith [employer] Access Estradiol Immunoassay. Estradiol testing is performed using a different test methodology at [facility]. Direct result comparison should only be made within the same method. Performed By: #### 2 243-4 #### JOSEPH ESQUIVEL ([id number]) [facility] ([facility]) [address] [place], [place] [id number] Progesteroneon 06-23-2024 Progesterone [Mass/Vol] 42.6 ng/mL Normal [facility] Comment on above: Order Comment: REF V ALUES Male <0.2-0.8 Follicular Phase <0.2-1.5 Luteal Phase 7.4-15.4 Post Menopausal <0.2-0.2 1ST Trimester 12.0-84.0 2ND Trimester 10.2-58.8 3RD Trimester 46.5-160 Progesterone is performed using the Faith [employer] Access Immunoassay. Progesterone testing is performed using a different test methodology at [facility]. Direct result comparison should only be made within the same method. Performed By: #### 2 839-9 #### JOSEPH ESQUIVEL ([id number]) [facility] ([facility]) [address] [place] [address] No Panel Informationon 06-13 Juan Chavarria MD [...] diagnosis: Infertility Post op diagnosis: Same Photo Lab Manager: none Depth: 7 cm Curve: anterior Distance [...] Juan Chavarria 06/13/24 11:24 AM [facility] Work Phone: Progesteroneon 06-13-2024 Progesterone [Mass/Vol] 45.0 ng/mL Normal [facility] Comment on above: Order Comment: REF V ALUES Male <0.2-0.8 Follicular Phase <0.2-1.5 Luteal Phase 7.4-15.4 Post Menopausal <0.2-0.2 1ST Trimester 12.0-84.0 2ND Trimester 10.2-58.8 3RD Trimester 46.5-160 Progesterone is performed using the Faith Med[employer] Access Immunoassay. Progesterone testing is performed using a different test methodology at [facility]. Direct result comparison should only be made within the same method. Performed By: #### 2 839-9 #### ORA MOHAN ([id number]) [facility] ([facility]) [address] [place] [address] Estradiolon 06-07-2024 E2 [Mass/Vol] 2870 pg/mL Normal [facility] Comment on above: Order Comment: REF V ALUES FOLLICULAR PHASE 20-144 MID CYCLE 64-357 LUTEAL PHASE 56-214 POSTMENOPAUSE < 32 PREPUBERTY < 20 FEMALE 10-18Y 8-110 MALE 10-18Y < 20 ADULT MALE < 40 Performed By: #### 2 243-4 ###Igor ESQUIVEL ([id number]) [facility] ([facility]) [address] [place] [address] Progesteroneon 06-07-2024 Progesterone [Mass/Vol] 0.4 ng/mL Normal [facility] Comment on above: Order Comment: REF V ALUES Male <0.2-0.8 Follicular Phase <0.2-1.5 Luteal Phase 7.4-15.4 Post Menopausal <0.2-0.2 1ST Trimester 12.0-84.0 2ND Trimester 10.2-58.8 3RD Trimester 46.5-160 Progesterone is performed using the Faith Medbox Access Immunoassay. Progesterone testing is performed using a different test methodology at [facility]. Direct result comparison should only be made within the same method. Result Comment: Ref Values Male <0.3- 1.2 Follicular Phase <0.3- 1.4 Luteal Phase 3.3-25.6 Mid-Luteal Phase 4.4-28.0 Postmenopausal <0.3- 0.7 Females: 1st Trimester 11.2- 90.0 2nd Trimester 25.6- 89.4 3RD Trimester 48.4-422.5 Patients receiving DHEA-S supplements may show false elevation of progesterone for results near 1.0 ng/mL. Contact laboratory at [phone] if alternative testing is needed. Performed By: #### 2 839-9 #### JOSEPH ESQUIVEL ([id number]) [facility] ([facility]) [address] [place] [address] [facility] US PELVIS LIMITED FOLLIC LES-FOLLICLE STUDIES PERFORMEDon 06-07-2024 [facility] US PELVIS LIMITED FOLLICLES-FOLLICLE STUDIES PERFORMED Follicle scan performed with follicle measurements in report. and Trilaminar appearance to the endometrium is noted. Normal Estradiolon 06-06-2024 E2 [Mass/Vol] 558 pg/mL Normal [facility] Comment on above: Order Comment: REF V ALUES FOLLICULAR PHASE 20-144 MID CYCLE 64-357 LUTEAL PHASE 56-214 POSTMENOPAUSE < 32 PREPUBERTY < 20 FEMALE 10-18Y 8-110 MALE 10-18Y < 20 ADULT MALE < 40 Performed By: #### 2 243-4 #### JOSEPH ESQUIVEL ([id number]) [facility] ([facility]) [address] [place] [address] Follicle Diameter USon 06-06 Trilaminar appearance to the endometrium is noted. RIS SECTRA ONLY [facility] Work Phone: Radiology Study observation (narrative) [facility] Work Phone: Progesteroneon 06-06-2024 Progesterone [Mass/Vol] 0.8 ng/mL Normal [facility] Comment on above: Order Comment: REF V ALUES Male <0.2-0.8 Follicular Phase <0.2-1.5 Luteal Phase 7.4-15.4 Post Menopausal <0.2-0.2 1ST Trimester 12.0-84.0 2ND Trimester 10.2-58.8 3RD Trimester 46.5-160 Progesterone is performed using the Faith Medbox Access Immunoassay. Progesterone testing is performed using a different test methodology at [facility]. Direct result comparison should only be made within the same method. Result Comment: Ref Values Male <0.3- 1.2 Follicular Phase <0.3- 1.4 Luteal Phase 3.3-25.6 Mid-Luteal Phase 4.4-28.0 Postmenopausal <0.3- 0.7 Females: 1st Trimester 11.2- 90.0 2nd Trimester 25.6- 89.4 3RD Trimester 48.4-422.5 Patients receiving DHEA-S supplements may show false elevation of progesterone for results near 1.0 ng/mL. Contact laboratory at [phone] if alternative testing is needed. Performed By: #### 2 839-9 #### JOSEPH ESQUIVEL ([id number]) [facility] ([facility]) [address] [place] [address] [facility] US ENDOMETRIAL LINING CH ECKon 06-06-2024 [facility] US ENDOMETRIAL LINING CHECK Trilaminar appearance to the endometrium is noted. Normal No Panel Informationon 03-22 Juan Chavarria MD 03/22/2024 9:44 AM Egg Retrieval Date/Time: 03/22/2024 9:39 AM Performed by: Juan Chavarria MD Authorized by: Donya Abernathy, RADIO SCRIPT WRITER-CHILLER TECHNICIAN Consent: Consent obtained: Verbal and written Consent [...] Female infertility Post op diagnosis: Same Photo Lab Manager: Dr. Warren IV Fluids: 600 cc EBL: 5 cc UOP: Not recorded Specimen: Oocytes Complications: None Number of Oocytes right ovary: 16 Ovarian access (right): Easy Number of Oocytes left ovary: 9 Ovarian access (left): Easy Endometrial thickness: n/a Needle type: Single Additional notes: [facility] RIS [facility] Work Phone: Lutropinon 03-21-2024 Lutropin Qn 29.3 IU/L Normal Comment on above: Result Comment: LH R eference Values Follicular Phase 1.5-10.0 Mid-Cycle 13.0-72.0 Luteal Phase 0.5-13.0 Menopause 15.0-65.0 Pre-puberty 0- 3.0 Children 0- 6.0 Adult Male 1.0- 9.0 Luteinizing Hormone is performed using the Faith [employer] Access Immunoassay. LH testing is performed using a different test methodology at [facility]. Direct result comparison should only be made within the same method. Performed By: #### 4 7236-5 #### SHAI Pickard ([id number]) [facility] [address] [place] [address] Progesteroneon 03-21-2024 Progesterone [Mass/Vol] 4.5 ng/mL Normal [facility] Comment on above: Order Comment: HIV [...] By: #### 5 6888-1 #### SHAI Pickard ([id number]) [facility] [address] [place] [address] E2 [Mass/Vol]Ordered By: Shira Rich on 03-20-2024 REF VALUES FOLLICULAR PHASE 20-144 MID CYCLE 64-357 LUTEAL PHASE 56-214 POSTMENOPAUSE < 32 PREPUBERTY < 20 FEMALE 10-18Y 8-110 MALE 10-18Y < 20 ADULT MALE < 40 Estradiol measurement is performed using the [employer] Access Estradiol Immunoassay. Estradiol testing is performed using a different test methodology at [facility]. Direct result comparison should only be made within the same method. [facility] EstradiolOrdered By: Bela Rich on 03-20-2024 E2 [Mass/Vol] 4909 pg/mL [facility] Estradiolon 03-20-2024 E2 [Mass/Vol] 4909 pg/mL Normal Comment on above: Order Comment: HIV A [...] By: #### 5 6888-1 #### SHAI Pickard ([id number]) [facility] [address] [place] [address] Follicle Diameter USon 03-20 Follicle scan performed with follicle measurements in report. RIS SECTRA ONLY [facility] Work Phone: Radiology Study observation (narrative) [facility] Work Phone: Progesteroneon 03-20-2024 Progesterone [Mass/Vol] 1.3 ng/mL U [facility] Progesterone [Mass/Vol] 1.3 ng/mL Normal [facility] Comment on above: Order Comment: HIV [...] By: #### 5 6888-1 #### SHAI Pickard ([id number]) [facility] [address] [place] [address] Progesterone [Mass/Vol]on REF VALUES Male <0.2-0.8 Follicular Phase <0.2-1.5 Luteal Phase 7.4-15.4 Post Menopausal <0.2-0.2 1ST Trimester 12.0-84.0 2ND Trimester 10.2-58.8 3RD Trimester 46.5-160 Progesterone is performed using the Faith [employer] Access Immunoassay. Progesterone testing is performed using a different test methodology at [facility]. Direct result comparison should only be made within the same method. [facility] PELVIS LIMITED FOLLIC LES-FOLLICLE STUDIES PERFORMEDon 03-20-2024 [facility] US PELVIS LIMITED FOLLICLES-FOLLICLE STUDIES PERFORMED Follicle scan performed with follicle measurements in report. Normal Estradiolon 03-19-2024 E2 [Mass/Vol] 3760 pg/mL Normal Comment on above: Order Comment: HIV A [...] By: #### 5 6888-1 #### SHAI Pickard ([id number]) [facility]) [address] [place] [address] Follicle Diameter USon 03-19 Follicle scan performed with follicle measurements in report. RIS SECTRA ONLY [facility] Work Phone: Radiology Study observation (narrative) [facility] Work Phone: Progesteroneon 03-19-2024 Progesterone [Mass/Vol] 1.1 ng/mL Normal [facility] Comment on above: Order Comment: HIV [...] By: #### 5 6888-1 #### SHAI Pickard ([id number]) [facility] [address] [place] [address] [facility] US PELVIS LIMITED FOLLIC LES-FOLLICLE STUDIES PERFORMEDon 03-19-2024 [facility] US PELVIS LIMITED FOLLICLES-FOLLICLE STUDIES PERFORMED Follicle scan performed with follicle measurements in report. Normal E2 [Mass/Vol]on 03-17-2024 REF VALUES FOLLICULAR PHASE 20-144 MID CYCLE 64-357 LUTEAL PHASE 56-214 POSTMENOPAUSE < 32 PREPUBERTY < 20 FEMALE 10-18Y 8-110 MALE 10-18Y < 20 ADULT MALE < 40 Estradiol measurement is performed using the [employer] Access Estradiol Immunoassay. Estradiol testing is performed using a different test methodology at [facility]. Direct result comparison should only be made within the same method. [facility] Estradiolon 03-17-2024 E2 [Mass/Vol] 1462 pg/mL [facility] E2 [Mass/Vol] 1462 pg/mL Normal Comment on above: Order Comment: HIV A [...] By: #### 5 6888-1 #### SHAI Pickard ([id number]) [facility] [address] [place] [address] Follicle Diameter USon 03-17 Follicle scan performed with follicle measurements in report. Trilaminar appearance to the endometrium is noted. Physiologic free fluid is noted in the cul de sac. Notably retroverted uterus. Two small complex ovarian cysts noted, one on the left and one on the right. RIS SECTRA ONLY Radiology Study observation (narrative) [facility] Work Phone: Follicle Diameter USOrdered By: Leigh Ann Tuttle on 03-17-2024 [facility] Work Phone: Progesteroneon 03-17-2024 Progesterone [Mass/Vol] 0.6 ng/mL Normal [facility] Comment on above: Order Comment: HIV A g/Ab screen is performed using the Siemens Kinetic SocialllAngiodroid HIV Ag/Ab Combo assay which detects the presence of HIV p24 antigen as well as antibodies to HIV-1 (Group M and O) and HIV-2. No laboratory evidence of HIV infection. If acute HIV infection is suspected, consider testing for HIV RNA by PCR (viral load). Performed By: #### 5 6888-1 #### SHAI Pickard ([id number]) [facility] [address] [place], [place] [id number] [facility] PELVIS LIMITED FOLLIC LES-FOLLICLE STUDIES PERFORMEDon 03-17-2024 [facility] US PELVIS LIMITED FOLLICLES-FOLLICLE STUDIES PERFORMED Follicle scan performed with follicle measurements in report. Trilaminar appearance to the endometrium is noted. Physiologic free fluid is noted in the cul de sac. Notably retroverted uterus. Two small complex ovarian cysts noted, one on the left and one on the right. Normal E2 [Mass/Vol]on 03-15-2024 REF VALUES FOLLICULAR PHASE 20-144 MID CYCLE 64-357 LUTEAL PHASE 56-214 POSTMENOPAUSE < 32 PREPUBERTY < 20 FEMALE 10-18Y 8-110 MALE 10-18Y < 20 ADULT MALE < 40 Estradiol measurement is performed using the [employer] Access Estradiol Immunoassay. Estradiol testing is performed using a different test methodology at [facility]. Direct result comparison should only be made within the same method. [facility] Estradiolon 03-15-2024 E2 [Mass/Vol] 721 pg/mL [facility] E2 [Mass/Vol] 721 pg/mL Normal Comment on above: Order Comment: REF V ALUESFOLLICULAR PHASE 20-144MID CYCLE 64-357LUTEAL PHASE 56-214POSTMENOPAUSE < 32PREPUBERTY < 20FEMALE 10-18Y 8-110MALE 10-18Y < 20ADULT MALE < 40Estradiol measurement is performed using the [employer] Access Estradiol Immunoassay. Estradiol testing is performed using a different test methodology at [facility]. Direct resultcomparison should only be made within the same method. Performed By: #### 1 6128-1 #### SHAI Pickard ([id number]) [facility] [address] [place] [address] Follicle Diameter USon 03-15 Follicle scan performed with follicle measurements in report., Trilaminar appearance to the endometrium is noted., and Free fluid is noted in the cul de sac. RIS SECTRA ONLY [facility] Work Phone: Radiology Study observation (narrative) [facility] Work Phone: [facility] US PELVIS LIMITED FOLLIC LES-FOLLICLE STUDIES PERFORMEDon 03-15-2024 [facility] US PELVIS LIMITED FOLLICLES-FOLLICLE STUDIES PERFORMED Follicle scan performed with follicle measurements in report., Trilaminar appearance to the endometrium is noted., and Free fluid is noted in the cul de sac. Normal E2 [Mass/Vol]on 03-09-2024 REF VALUES FOLLICULAR PHASE 20-144 MID CYCLE 64-357 LUTEAL PHASE 56-214 POSTMENOPAUSE < 32 PREPUBERTY < 20 FEMALE 10-18Y 8-110 MALE 10-18Y < 20 ADULT MALE < 40 Estradiol measurement is performed using the [employer] Access Estradiol Immunoassay. Estradiol testing is performed using a different test methodology at [facility] other [facility]. Direct result comparison should only be made within the same method. [facility] Estradiolon 03-09-2024 E2 [Mass/Vol] pg/mL pg/mL [facility] E2 [Mass/Vol] pg/mL Normal Comment on above: Order Comment: REF V ALUESFOLLICULAR PHASE 20-144MID CYCLE 64-357LUTEAL PHASE 56-214POSTMENOPAUSE < 32PREPUBERTY < 20FEMALE 10-18Y 8-110MALE 10-18Y < 20ADULT MALE < 40Estradiol measurement is performed using the [employer] Access Estradiol Immunoassay. Estradiol testing is performed using a different test methodology at [facility]. Direct resultcomparison should only be made within the same method. Performed By: #### 1 6128-1 #### SHAI Pickard ([id number]) [facility] [address] [place] [address] Follicle Diameter USon 03-09 Follicle scan performed with follicle measurements in report., Trilaminar appearance to the endometrium is noted., and Free fluid is noted in the cul de sac. RIS SECTRA ONLY Radiology Study observation (narrative) [facility] Work Phone: Follicle Diameter USOrdered By: Alicia Morgan on 03-09-2024 [facility] Work Phone: Hematocrit Auto (Bld) [Volum e fraction]on 03-09-2024 Hematocrit (Bld) [Volume fraction] 43.2 % 36.0 - 46.0 % [facility] Interpretation and review of laboratory results Normal [facility] Hematocrit (Bld) [Volume fraction] 43.2 % Normal 36.0-46.0 Comment on above: Performed By: #### 1 6128-1 #### SHAI Pickard ([id number]) [facility] [address] [place] [address] [facility] US PELVIS LIMITED FOLLIC LES-FOLLICLE STUDIES PERFORMEDon 03-09-2024 [facility] US PELVIS LIMITED FOLLICLES-FOLLICLE STUDIES PERFORMED Follicle scan performed with follicle measurements in report., Trilaminar appearance to the endometrium is noted., and Free fluid is noted in the cul de sac. [facility] No Panel Informationon 02-22 Juan Chavarria MD [...] Female infertility Post op diagnosis: Same Photo Lab Manager: none IV Fluids: 500 cc EBL: 5 cc UOP: Not recorded Specimen: Oocytes Complications: None Number of Oocytes right ovary: 17 Ovarian acc ss (right): Easy Number of Oocytes left ovary: 13 Ovarian access (left): Easy Endometrial thickness: n/a Needle type: Single Additional notes: [facility] Work Phone: Lutropinon 02-22-2024 Lutropin Qn 35.3 IU/L [facility] Comment on above: Result Comment: LH R eference Values Follicular Phase 1.5-10.0 Mid-Cycle 13.0-72.0 Luteal Phase 0.5-13.0 Menopause 15.0-65.0 Pre-puberty 0- 3.0 Children 0- 6.0 Adult Male 1.0- 9.0 Luteinizing Hormone is performed using the [employer] Access Immunoassay. LH testing is performed using a different test methodology at [facility]. Direct result comparison should only be made within the same method. Performed By: #### 1 6128-1 #### SHAI Pickard ([id number]) [facility] [address] [place] [address] Progesteroneon 02-22-2024 Progesterone [Mass/Vol] 5.0 ng/mL Normal [facility] Comment on above: Order Comment: REF V ALUESMale <0.2-0.8Follicular Phase <0.2-1.5Luteal Phase 7.4-15.4Post Menopausal <0.2-0.21ST Trimester 12.0-84.02ND Trimester 10.2-58.83RD Trimester 46.5-160Progesterone is performed using the [employer] Access Immunoassay.Progesterone testing is performed using a different test methodology at [facility]. Direct result comparison should only be made within the same method. Performed By: #### 1 6128-1 #### SHAI Pickard ([id number]) [facility] [address] [place] [address] E2 [Mass/Vol]Ordered By: Christi Infante on 02-21-2024 REF VALUES FOLLICULAR PHASE 20-144 MID CYCLE 64-357 LUTEAL PHASE 56-214 POSTMENOPAUSE < 32 PREPUBERTY < 20 FEMALE 10-18Y 8-110 MALE 10-18Y < 20 ADULT MALE < 40 Estradiol measurement is performed using the [employer] Access Estradiol Immunoassay. Estradiol testing is performed using a different test methodology at [facility]. Direct result comparison should only be made within the same method. [facility] EstradiolOrdered By: Janet Ritchie on 02-21-2024 E2 [Mass/Vol] 5153 pg/mL [facility] Estradiolon 02-21-2024 E2 [Mass/Vol] 5153 pg/mL Normal Comment on above: Order Comment: REF V ALUESFOLLICULAR PHASE 20-144MID CYCLE 64-357LUTEAL PHASE 56-214POSTMENOPAUSE < 32PREPUBERTY < 20FEMALE 10-18Y 8-110MALE 10-18Y < 20ADULT MALE < 40Estradiol measurement is performed using the [employer] Access Estradiol Immunoassay. Estradiol testing is performed using a different test methodology at [facility]. Direct resultcomparison should only be made within the same method. Performed By: #### 1 6128-1 #### SHAI Pickard ([id number]) [facility]) [address] [place] [address] Follicle Diameter USon 02-20 Follicle scan performed with follicle measurements in report. RIS SECTRA ONLY Radiology Study observation (narrative) [facility] Work Phone: Follicle Diameter USOrdered By: Juan Chavarria on 02-21-2024 [facility] Work Phone: Luteinizing Hormone (LH)on Lutropin Qn 0.9 m[IU]/mL IU/L [facility] Comment on above: LH Reference Values Follicular Phase 1.5-10.0 Mid-Cycle 13.0-72.0 Luteal Phase 0.5-13.0 Menopause 15.0-65.0 Pre-puberty 0- 3.0 Children 0- 6.0 Adult Male 1.0- 9.0 Luteinizing Hormone is performed using the [employer] Access Immunoassay. LH testing is performed using a different test methodology at [facility]. Direct result comparison should only be made within the same method. Lutropinon 02-21-2024 Lutropin Qn 0.9 IU/L Normal Comment on above: Result Comment: LH R eference Values Follicular Phase 1.5-10.0 Mid-Cycle 13.0-72.0 Luteal Phase 0.5-13.0 Menopause 15.0-65.0 Pre-puberty 0- 3.0 Children 0- 6.0 Adult Male 1.0- 9.0 Luteinizing Hormone is performed using the [employer] Access Immunoassay. LH testing is performed using a different test methodology at [facility]. Direct result comparison should only be made within the same method. Performed By: #### 1 6128-1 #### SHAI Pickard ([id number]) [facility]) [address] [place] [address] Lutropin Qnon 02-21-2024 [facility] Progesteroneon 02-21-2024 Progesterone [Mass/Vol] 1.3 ng/mL [facility] Progesterone [Mass/Vol] 1.3 ng/mL Normal [facility] Comment on above: Order Comment: REF V ALUESMale <0.2-0.8Follicular Phase <0.2-1.5Luteal Phase 7.4-15.4Post Menopausal <0.2-0.21ST Trimester 12.0-84.02ND Trimester 10.2-58.83RD Trimester 46.5-160Progesterone is performed using the Faith Cristopher Access Immunoassay.Progesterone testing is performed using a different test methodology at [facility]. Direct result comparison should only be made within the same method. Performed By: #### 5 196-1 #### SHAI Pickard ([id number]) [facility] [address] [place], [place] [id number] Progesterone [Mass/Vol]on REF VALUES Male <0.2-0.8 Follicular Phase <0.2-1.5 Luteal Phase 7.4-15.4 Post Menopausal <0.2-0.2 1ST Trimester 12.0-84.0 2ND Trimester 10.2-58.8 3RD Trimester 46.5-160 Progesterone is performed using the Faith Cristopher Access Immunoassay. Progesterone testing is performed using a different test methodology at [facility]. Direct result comparison should only be made within the same method. [facility] KELSY US PELVIS LIMITED FOLLIC LES-FOLLICLE STUDIES PERFORMEDon 02-21-2024 KELSY US PELVIS LIMITED FOLLICLES-FOLLICLE STUDIES PERFORMED Follicle scan performed with follicle measurements in report. Normal Estradiolon 02-20-2024 E2 [Mass/Vol] 3718 pg/mL Normal Comment on above: Order Comment: REF V ALUESFOLLICULAR PHASE 20-144MID CYCLE 64-357LUTEAL PHASE 56-214POSTMENOPAUSE < 32PREPUBERTY < 20FEMALE 10-18Y 8-110MALE 10-18Y < 20ADULT MALE < 40Estradiol measurement is performed using the Faith Cristopher Access Estradiol Immunoassay. Estradiol testing is performed using a different test methodology at [facility]. Direct resultcomparison should only be made within the same method. Performed By: #### 5 196-1 #### SHAI Pickard ([id number]) [facility] [address] [place] [address] Progesteroneon 02-20-2024 Progesterone [Mass/Vol] 1.4 ng/mL Normal [facility] Comment on above: Order Comment: REF V ALUESMale <0.2-0.8Follicular Phase <0.2-1.5Luteal Phase 7.4-15.4Post Menopausal <0.2-0.21ST Trimester 12.0-84.02ND Trimester 10.2-58.83RD Trimester 46.5-160Progesterone is performed using the Faith Medbox Access Immunoassay.Progesterone testing is performed using a different test methodology at [facility] than [facility]. Direct result comparison should only be made within the same method. Performed By: #### 5 196-1 #### SHAI Pickard ([id number]) [facility] [address] [place] [address] KELSY US PELVIS LIMITED FOLLIC LES-FOLLICLE STUDIES PERFORMEDon 02-20-2024 KELSY US PELVIS LIMITED FOLLICLES-FOLLICLE STUDIES PERFORMED Follicle scan performed with follicle measurements in report. Normal E2 [Mass/Vol]on 02-18-2024 REF VALUES FOLLICULAR PHASE 20-144 MID CYCLE 64-357 LUTEAL PHASE 56-214 POSTMENOPAUSE < 32 PREPUBERTY < 20 FEMALE 10-18Y 8-110 MALE 10-18Y < 20 ADULT MALE < 40 Estradiol measurement is performed using the Faith Medbox Access Estradiol Immunoassay. Estradiol testing is performed using a different test methodology at [facility]. Direct result comparison should only be made within the same method. [facility] Estradiolon 02-18-2024 E2 [Mass/Vol] 1472 pg/mL [facility] E2 [Mass/Vol] 1472 pg/mL Normal Comment on above: Order Comment: REF V ALUESFOLLICULAR PHASE 20-144MID CYCLE 64-357LUTEAL PHASE 56-214POSTMENOPAUSE < 32PREPUBERTY < 20FEMALE 10-18Y 8-110MALE 10-18Y < 20ADULT MALE < 40Estradiol measurement is performed using the Faith Cristopher Access Estradiol Immunoassay. Estradiol testing is performed using a different test methodology at [facility]. Direct resultcomparison should only be made within the same method. Performed By: #### 5 196-1 #### SHAI Pickard ([id number]) [facility]) [address] [place] [address] Follicle Diameter USon 02-17 Follicle scan performed with follicle measurements in report. Trilaminar appearance to the endometrium is noted. Free fluid is noted in the right paraovarian space. Notably retroverted uterus. RIS SECTRA ONLY Radiology Study observation (narrative) [facility] Work Phone: Follicle Diameter USOrdered By: Leigh Ann Tuttle on 02-18-2024 [facility] Work Phone: KELSY US PELVIS LIMITED FOLLIC LES-FOLLICLE STUDIES PERFORMEDon 02-18-2024 KELSY US PELVIS LIMITED FOLLICLES-FOLLICLE STUDIES PERFORMED Follicle scan performed with follicle measurements in report. Trilaminar appearance to the endometrium is noted. Free fluid is noted in the right paraovarian space. Notably retroverted uterus. Normal E2 [Mass/Vol]on 02-16-2024 REF VALUES FOLLICULAR PHASE 20-144 MID CYCLE 64-357 LUTEAL PHASE 56-214 POSTMENOPAUSE < 32 PREPUBERTY < 20 FEMALE 10-18Y 8-110 MALE 10-18Y < 20 ADULT MALE < 40 Estradiol measurement is performed using the Faith Cristopher Access Estradiol Immunoassay. Estradiol testing is performed using a different test methodology at [facility]. Direct result comparison should only be made within the same method. [facility] Estradiolon 02-16-2024 E2 [Mass/Vol] 639 pg/mL [facility] E2 [Mass/Vol] 639 pg/mL Normal Comment on above: Order Comment: REF V ALUESFOLLICULAR PHASE 20-144MID CYCLE 64-357LUTEAL PHASE 56-214POSTMENOPAUSE < 32PREPUBERTY < 20FEMALE 10-18Y 8-110MALE 10-18Y < 20ADULT MALE < 40Estradiol measurement is performed using the Faith [place] Access Estradiol Immunoassay. Estradiol testing is performed using a different test methodology at [facility]. Direct resultcomparison should only be made within the same method. Performed By: #### 5 196-1 #### SHAI Pickard ([id number]) [facility]) [id number] [place] [address] KELSY US PELVIS LIMITED FOLLIC LES-FOLLICLE STUDIES PERFORMEDon 02-16-2024 KELSY US PELVIS LIMITED FOLLICLES-FOLLICLE STUDIES PERFORMED Follicle scan performed with follicle measurements in report. and Trilaminar appearance to the endometrium is noted. Normal E2 [Mass/Vol]on 02-09-2024 REF VALUES FOLLICULAR PHASE 20-144 MID CYCLE 64-357 LUTEAL PHASE 56-214 POSTMENOPAUSE < 32 PREPUBERTY < 20 FEMALE 10-18Y 8-110 MALE 10-18Y < 20 ADULT MALE < 40 Estradiol measurement is performed using the Faith Cristopher Access Estradiol Immunoassay. Estradiol testing is performed using a different test methodology at [facility]. Direct result comparison should only be made within the same method. [facility] Estradiolon 02-09-2024 E2 [Mass/Vol] pg/mL pg/mL [facility] E2 [Mass/Vol] pg/mL Normal Comment on above: Order Comment: REF V ALUESFOLLICULAR PHASE 20-144MID CYCLE 64-357LUTEAL PHASE 56-214POSTMENOPAUSE < 32PREPUBERTY < 20FEMALE 10-18Y 8-110MALE 10-18Y < 20ADULT MALE < 40Estradiol measurement is performed using the Faith Cristopher Access Estradiol Immunoassay. Estradiol testing is performed using a different test methodology at [facility]. Direct resultcomparison should only be made within the same method. Performed By: #### 5 196-1 #### SHAI Pickard ([id number]) [facility]) [address] [place] [address] Follicle Diameter USon 02-08 Follicle scan performed with follicle measurements in report. MFM Radiology Study observation (narrative) [facility] Work Phone: Follicle Diameter USOrdered By: Juan Chavarria on 02-09-2024 [facility] Work Phone: Hematocrit Auto (Bld) [Volum e fraction]on 02-09-2024 Hematocrit (Bld) [Volume fraction] 42.9 % 36.0 - 46.0 % [facility] Interpretation and review of laboratory results Normal [facility] Hematocrit (Bld) [Volume fraction] 42.9 % Normal 36.0-46.0 Comment on above: Performed By: #### 4 544-3 #### JOSEPH ESQUIVEL ([id number]) [facility]) [address] [place] [address] KELSY US PELVIS LIMITED FOLLIC LES-FOLLICLE STUDIES PERFORMEDon 02-09-2024 KELSY US PELVIS LIMITED FOLLICLES-FOLLICLE STUDIES PERFORMED Follicle scan performed with follicle measurements in report. Normal HCG ( test) Ql (U)o n 01-28-2024 Interpretation and review of laboratory results Normal [facility] Work Phone: Preg Test, Ur Negative Negative [facility] Work Phone: [facility] Work Phone: No Panel Informationon [...] Tolerated well, no immediate complications [facility] Work Phone: Surgical pathology studyon 0 01-28-2024 Surgical pathology study Pathology report.total SEE COMMENT Surgical Pathology Case: [id number] Authorizing Provider: Leigh Ann Tuttle MD Collected: 01/28/2024 1027 Ordering Location: [facility] Received: 01/28/2024 1027 [place] Pathologist: Yamila Leo MD Specimen: ENDOMETRIUM POLYPECTOMY [...] is entirely submitted in 1 cassette. JEK/SBS [facility] IGP,APTIMA HPV,AGE GDLNon AGE GDLN ACOG TESTING Note . [facility] Comment on above: TESTS RESULT FLAG U NITS REF RANGE LAB Clinician Provided Cytology Information Source.............Cervix;Endocervix No. of containers..01 ThinPrep Vial Age Arsh Hollis... FLAG LEGEND: L-Low Normal,H-High Normal,LL-Alert Low,HH-Alert High <-Panic Low,>-Panic High,A-Abnormal,AA-Critical Abnormal Performed at: 01 =G [address] [address] Nidhi Fay MD, IGP, RFX APTIMA HPV ASCU Note . [facility] Comment on above: TESTS RESULT FLAG UN ITS REF RANGE LAB DIAGNOSIS: 02 NEGATIVE FOR INTRAEPITHELIAL LESION OR MALIGNANCY. Specimen adequacy: 02 Satisfactory for evaluation. Endocervical and/or squamous metaplastic cells (endocervical component) are present. Performed by: 02 Isac Masters Photography Professor ([facility]) . 02 Note: Note 02 The Pap [...] Low,>-Panic High,A-Abnormal,AA-Critical Abnormal Performed at: [address] [address] Nidhi Fay MD, Performed at: =G - [facility] [address] [id number] Gun Fitter: Nidhi Fay MD, Phone: [phone] Performed at: - [facility] [id number] Gun Fitter: Nidhi Fay MD, Phone: [phone] BRUSH-SPATULA CERVIX ENDOCERVIX [facility] Blood type and Indirect anti body screen panel (Bld)on 2023 ABO group Nom (Bld) O [facility] Blood group antibody screen Ql Negative [facility] D Ag Ql (Bld) Positive [facility] ABO group Nom (Bld) O Normal [facility] Comment on above: Performed By: #### 3 4532-2 #### JOSEPH ESQUIVEL ([id number]) [facility] ([facility]) [address] Blood group antibody screen Ql Negative Normal Comment on above: Performed By: #### 3 4532-2 #### JOSEPH ESQUIVEL ([id number]) [facility] ([facility]) [address] [place] [address] US D Ag Ql (Bld) Positive Normal Comment on above: Performed By: #### 3 4532-2 #### JOSEPH ESQUIVEL ([id number]) [facility] ([facility]) [address] [place] [address] US C. trachomatis and N. gonorr hoeae DNA EDELMIRA+probe Nom (Unsp spec)on 2023 C. trachomatis rRNA EDELMIRA+probe Ql (Unsp spec) Negative Normal Negative [facility] Comment on above: Order Comment: The [...] By: #### 3 6903-3 #### SHAI Pickard ([id number]) [facility] [address] [place] [address] N. gonorrhoeae DNA Probe+sig amp Ql (Unsp spec) Negative Normal Negative Comment on above: Order Comment: The A [...] By: #### 3 6903-3 #### SHAI Pickard ([id number]) [facility] [address] [place] [address] HIV 1+2 Ab+HIV1 p24 Agon HIV 1+2 Ab+HIV1 p24 Ag IA Ql Non-Reactive Normal Nonreactive Comment on above: Order Comment: HIV A g/Ab screen is performed using the Siemens Kinetic SocialllAngiodroid HIV Ag/Ab Combo assay which detects the presence of HIV p24 antigen as well as antibodies to HIV-1 (Group M and O) and HIV-2. No laboratory evidence of HIV infection. If acute HIV infection is suspected, consider testing for HIV RNA by PCR (viral load). Performed By: #### 5 6888-1 #### SHAI HARRISON L ([id number]) [facility]) [address] [place], [place] [address] Hepatitis B virus surface Ag on 2023 HBV surface Ag IA Ql Non-Reactive Normal Nonreactive [facility] Comment on above: Result Comment: Biot in interference may cause falsely decreased results. Patients taking a Biotin dose of up to 5 mg/day should refrain from taking Biotin for 24 hours before sample collection. Providers may contact their local laboratory for further information. Performed By: #### 5 196-1 #### SHAI HARRISON L ([id number]) [facility] [address] [place], [place] [address] Hepatitis C virus Abon 12-10 HCV Ab Ql (S) Non-Reactive Normal Nonreactive [facility] Comment on above: Result Comment: Resu lts from patients taking biotin supplements or receiving high-dose biotin therapy should be interpreted with caution due to possible interference with this test. Providers may contact their local laboratory for further information. Performed By: #### 1 6128-1 #### SHAI Pickard ([id number]) [facility] [address] [place] [address] Rubella virus IgG IA Qnon Rubella virus IgG IA Ql Positive Normal Negative [facility] Comment on above: Order Comment: [...] By: #### 5 334-8 #### SHAI Pickard ([id number]) [facility] [address] [place], [place] [address] Rubella virus IgG Qn (S) 1.2 IA Normal <=0.7 IA Comment on above: Order Comment: NEGAT DEZ: [...] By: #### 5 334-8 #### SHAI Pickard ([id number]) [facility] [address] [place], [place] [address] Treponema pallidum Ab.IgG+Ig Mon 2023 T. pallidum IgG+IgM IA Ql (S) Non-Reactive Normal Nonreactive Comment on above: Result Comment: No s ignificant level of Treponema pallidum antibody detected. Repeat testing in 2 to 4 weeks may be considered if early infection or incubating syphilis infection is suspected. Performed By: #### 4 7236-5 #### SHAI Pickard ([id number]) [facility] [address] [place], [place] [address] VZV IgG IA Ql (S)on 12-11-19 24 VARICELLA ZOSTER IGG INDEX 5.6 IA High <=0.8 Comment on above: Order Comment: NEGAT DEZ: [...] By: #### 1 5410-4 #### SHAI Pickard ([id number]) [facility] [address] [place], [place] [address] Varicella zoster virus Ab.Ig Biju 2023 VZV IgG IA Ql (S) Positive Abnormal Negative [facility] Comment on above: Order Comment: NEGAT [...] By: #### 1 5410-4 #### SHAI Pickard ([id number]) [facility] [address] [place], [place] [address] Ambulatory Visit Summaryon 0 10-02-2023 Ambulatory Visit [...] knee anterior cruciate ligament allograft reconstruction with yksd-ruosgc-exdk, debridment medial meniscus tear, patellofemoral chondroplasty-Grade I-II (07/28/2013), Tonsillectomy, tubes in the ears. Discharge Vitals Temperature (Oral) 36.8 ?C Heart Rate (Peripheral) 65 Blood Pressure 118/66 Height 162 cm Height 64 in Weight 76.7 kg Weight 168.74 lb BMI 29.23 What to do next Scheduled Follow-Up Appointments Thursday 7:20 AM EDT With: Princess Dumont Where: [facility] Primary Care Normal [facility] Family Medicine Office/Clini c Noteon 10-02-2023 [...] lot of blood work ordered by her [employer] and we are going to go over [...] mg once day. She has been taking cbfl-jjv-rjhtdei magnesium at night since initiating Topamax. Weight management. The patient expresses a desire to lose weight and re-initiate her Adipex. She has previously tried Aryan ssyh-eqa-lacctdt but found it ineffective. She does not [...] arms or hands, as well as any juice weigher strength weakness. She is agreeable trying vitamin [...] me in (more content not included)... Normal [facility] Comment on above: Result Comment: Elec tronically Signed By: Princess Dumont\.br\Date and Time Signed: 10/02/23 16:44 EDT\.br\Electronically Co-Signed By: Raj Chu\.br\Date and Time Co-Signed: 10/02/23 15:48 EDT Lab Reportson 10-02-2023 Lab Reports [id number] 02#1.00TIFF [facility] Patient Educationon 10-02-19 Patient Education BMI [...] numbers. This can be done either in [place] ([place] or metric measurements. Note that charts and online BMI calculators are available to help you find your BMI quickly and easily without having to do these calculations yourself. To calculate your BMI in [place] ([place] measurements: 1. Measure your weight in [...] for Disease Control and Prevention: www.cdc.gov ? Indian Heart Association: www.heart.org ? National Heart, Lung, and Blood Lingle: www.nhlbi.nih.gov Summary ? Body mass index (BMI) is a number that is calculated from a person's weight and height. ? BMI may help estimate how much of a person's weight is composed of fat. BMI can help identify those who may be at higher risk for certain medical problems. ? BMI can be measured using [place]an measurements or metric measurements. ? BMI charts are used to identify whether you are underweight, normal weight, overweight, or obese. This information is not intended to replace advice given to you by your health care provider. Make sure you discuss any questions you have with your health care provider. Document Revised: 01/11/2020 Document Reviewed: 11/18/2019 [employer] Patient Education ? 2022 [employer]. Dermatology Eczema Eczema refers to a group [...] symptoms? S (more content not included)... Normal [facility] Transfer Inon 09-02-2023 Transfer In [id number] 2#1.00TIFF Normal [facility] Family Medicine Office/Clini c Noteon 08-29-2023 [...] and encouraged her to go see her [employer]. The patient was overweight with an elevated BMI. Her laboratories I ordered were not performed, and she did not do the x-ray that I ordered either. She presents for headaches again. Cervicalgia and persistent headaches. The patient underwent cervical x-ray in 02/20/2023 in [place], the day after her last visit on [...] in 06/2023 or 07/2023 and done at [place]. She is uncertain if cholesterol levels were checked. Her bowel movements and urination are normal. She and her switched clinics where she is the patient for an IVF and are waiting for an appointment within the next 2 months. 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 Ibuprofen every 6 to 8 hours. Tylenol [...] appearing. EN (more content not included)... Normal [facility] Comment on above: Result Comment: Elec [...] numbers. This can be done either in [place] ([place] or metric measurements. Note that charts and online BMI calculators are available to help you find your BMI quickly and easily without having to do these calculations yourself. To calculate your BMI in [place] ([place] measurements: 1. Measure your weight in [...] for Disease Control and Prevention: www.cdc.gov ? Indian Heart Association: www.heart.org ? National Heart, Lung, and Blood Lingle: www.nhlbi.nih.gov Summary ? Body mass index (BMI) is a number that is calculated from a person's weight and height. ? BMI may help estimate how much of a person's weight is composed of fat. BMI can help identify those who may be at higher risk for certain medical problems. ? BMI can be measured using [place]an measurements or metric measurements. ? BMI charts are used to identify whether you are underweight, normal weight, overweight, or obese. This information is not intended to replace advice given to you by your health care provider. Make sure you discuss any questions you have with your health care provider. Document Revised: 01/11/2020 Document Reviewed: 11/18/2019 [employer] Patient Education ? 2022 [employer]. Endocrinology Carbohydrate Counting for Diabetes Mellitus, Adult [...] contain carbohydra (more content not included)... Normal [facility] DHEA SERUMon 07-31-2022 Dehydroepiandrosterone (DHEA) 429 ng/dL Normal 31-701 [facility] Comment on above: Performed By: #### D MILTON. #### [facility] [address] [place] [address] Dr. Meghna Alas ANTI-MULLERIAN HORMONEon Anti-Mullerian Hormone (AMH) 2.01 ng/mL Normal [facility] Comment on above: Result Comment: For assays employing antibodies, the possibility exists for interference by heterophile antibodies in the samples.1 1.Ramon Calderon Interferences in Immunoassays - still a threat. Clin. Chem. 2000; 46: 7711-3156. This test was developed and its performance characteristics determined by [employer]. It has not been cleared or approved by the Food and Drug Administration. Reference Range: Females 20 - 25y: 1.23 - 11.51 Median 4.70 AMH concentrations of >= 1.06 ng/mL is correlated with a better response to ovarian stimulation, produced more retrievable oocytes and higher odds of live according to Efra et al. Fertility and Sterility. 2010: 94:6192-4233. The current AMH test method correlates with [...] tumor. Performed By: #### A JOSE #### [facility] [address] [place] [address] [address] Meghna Alas PAP ACOG PANEL 2: 21 to 29on 07-29-2022 . . Normal [facility] Comment on above: Performed By: #### 4 [id number] ####[facility] [address] [address]Dr. Meghna Alas Age Gdln ACOG Testing 21-29 Normal [facility] Comment on above: Performed By: #### 4 [id number] ####[facility] [address] [address]Dr. Meghna Alas DIAGNOSIS: Comment [facility] Comment on above: Result Comment: NEGA TIVE FOR INTRAEPITHELIAL LESION OR MALIGNANCY. Performed By: #### 4 [id number] ####[facility] [address] [address]Dr. Meghna Alas Methodology: Comment [facility] Comment on above: Result Comment: This liquid based ThinPrep(R) pap test was screened with the use of an image guided system. Performed By: #### 4 243514 ####[facility] [address] [address]DrBetito Alas Note: Comment Normal [facility] Comment on above: Result Comment: The Pap smear is a screening test designed to aid in the detection of premalignant and malignant conditions of the uterine cervix. It is not a diagnostic procedure and should not be used as the sole means of detecting cervical cancer. Both false-positive and false-negative reports do occur. . Performed By: #### 4 [id number] ####[facility] [address] [address]DrBetito Alas Performed by: Comment Normal [facility] Comment on above: Result Comment: Antonella Villarreal, Supervisory Photography Professor (ASCP) Performed By: #### 4 [id number] ####[facility] [address] [address]DrBetito Alas Reflex Criteria: Comment Normal [facility] Comment on above: Result Comment: The HPV DNA reflex criteria were not met with this specimen result therefore, no HPV testing was performed. . Performed By: #### 4 [id number] ####[facility] [address] [address]DrBetito Alas Specimen adequacy: Comment Normal [facility] Comment on above: Result Comment: Sati sfactory for evaluation. Endocervical and/or squamous metaplastic cells (endocervical component) are present. Performed By: #### [id number] ####[facility] [id number] [address]Dr. Meghna Alas DHEA-SULFATEon 07-27-2022 DHEA-Sulfate 195.0 ug/dL Normal 110.0-431.7 [facility] Comment on above: Performed By: #### D RADHA #### [facility] [address] [address] [address] Meghna Alas FSHon 07-27-2022 FSH 11.4 mIU/mL Normal [facility] Comment on above: Result Comment: Adul t Female: Follicular phase 3.5 - 12.5 Ovulation phase 4.7 - 21.5 Luteal phase 1.7 - 7.7 Postmenopausal 25.8 - 134.8 Performed By: #### L [facility]LY [facility] #### [facility] [address] [place] [id number] [address] Meghna Alas LUTEINIZING HORMONE (LH)on 0 07-27-2022 LH 61.8 mIU/mL Normal [facility] Comment on above: Result Comment: Adul t Female: Follicular phase 2.4 - 12.6 Ovulation phase 14.0 - 95.6 Luteal phase 1.0 - 11.4 Postmenopausal 7.7 - 58.5 Performed By: #### L [facility] #### [facility] [address] [place], [place] [address] Dr. Meghna Alas US PELVIS AND TRANSVAGon [...] RACQUEL UNLU Date: 2022-07-27 08:10 Normal [facility] CBC AUTO DIFFon 07-26-2022 BASO # 0.1 103/ul Normal 0.0-0.1 [facility] Comment on above: Performed By: #### C BC #### [facility] [address] [place] [id number] Meghna Alas Basophils/100 WBC (Bld) 0.8 % Normal 0.2-2.0 [facility] Comment on above: Performed By: #### C BC #### [facility] [address] [place] [address] Dr. Meghna Alas EO # 0.2 103/ul Normal 0.0-0.7 [facility] Comment on above: Performed By: #### C BC #### [facility] [address] [place] [address] Dr. Meghna Alas Eosinophils/100 WBC (Bld) 3.7 % Normal 0.9-7.0 [facility] Comment on above: Performed By: #### C BC #### [facility] [address] [place] [address] Dr. Meghna Alas Erythrocyte distribution width (RBC) [Ratio] 11.7 % Normal 11.0-15.0 [facility] Comment on above: Performed By: #### C BC #### [facility] [address] [place] [address] Dr. Meghna Alas Hematocrit (Bld) [Volume fraction] 43.6 % Normal 36.0-48.0 [facility] Comment on above: Performed By: #### C BC #### [facility] [address] [place] [address] Dr. Meghna Alas Hemoglobin (Bld) [Mass/Vol] 14.9 g/dL Normal 12.0-16.0 [facility] Comment on above: Performed By: #### C BC #### [facility] [address] [place] [address] Dr. Meghna Alas IG # 0.02 10e3/ul Normal 0.00-0.03 [facility] Comment on above: Performed By: #### C BC #### [facility] [address] [place] [address] Dr. Meghna Alas IG % 0.3 % Normal 0.0-0.5 [facility] Comment on above: Performed By: #### C BC #### [facility] [address] [place] [address] Dr. Meghna Alas LYMPH # 1.7 103/ul Normal 1.2-3.8 [facility] Comment on above: Performed By: #### C BC #### [facility] [address] [place] [address] Dr. Meghna Alas Lymphocytes/100 WBC (Bld) 27.7 % Normal 20.5-60.0 [facility] Comment on above: Performed By: #### C BC #### [facility] [address] [place] [address] Dr. Meghna Alas MANUAL DIFF REQ NO Normal [facility] Comment on above: Performed By: #### C BC #### [facility] [address] [place] [address] Dr. Meghna Alas MCH (RBC) [Entitic mass] 30.7 pg Normal 26.7-34.0 [facility] Comment on above: Performed By: #### C BC #### [facility] [address] [place] [address] Dr. Meghna Alas MCHC (RBC) [Mass/Vol] 34.2 g/dL Normal 29.9-35.2 [facility] Comment on above: Performed By: #### C BC #### [facility] [address] [place] [address] Dr. Meghna Alas MCV (RBC) [Entitic vol] 89.7 fL Normal 81.0-99.0 [facility] Comment on above: Performed By: #### C BC #### [facility] [address] [place] [address] Dr. Meghna Alas MONO # 0.4 103/ul Normal 0.3-0.8 [facility] Comment on above: Performed By: #### C BC #### [facility] [address] [place] [address] Dr. Meghna Alas Monocytes/100 WBC (Bld) 7.1 % Normal 1.7-12.0 [facility] Comment on above: Performed By: #### C BC #### [facility] [address] [place] [address] Dr. Meghna Alas NEUT # 3.7 103/ul Normal 1.4-6.5 [facility] Comment on above: Performed By: #### C BC #### [facility] [address] [place] [address] Dr. Meghna Alas Neutrophils/100 WBC (Bld) 60.4 % Normal 43.0-75.0 [facility] Comment on above: Performed By: #### C BC #### [facility] [address] [place] [address] Dr. Meghna Alas Platelet mean volume (Bld) [Entitic vol] 11.3 fL Normal 9.5-13.5 [facility] Comment on above: Performed By: #### C BC #### [facility] [address] [place] [address] Dr. Meghna Alas PLT 154 103/ul Normal 150-450 [facility] Comment on above: Performed By: #### C BC #### [facility] [address] [place] [address] Dr. Meghna Alas RBC 4.86 106/ul Normal 4.20-5.40 [facility] Comment on above: Performed By: #### C BC #### [facility] [address] [place] [address] Dr. Meghna Alas WBC 6.2 103/ul Normal 4.0-11.0 [facility] Comment on above: Performed By: #### C BC #### [facility] [address] [place] [address] Dr. Meghna Alas FREE T4on 07-26-2022 Free T4 [Mass/Vol] 1.04 ng/dL Normal 0.76-1.46 [facility] Comment on above: Performed By: #### F T4 #### [facility] [address] [place] [address] Dr. Meghna Alas GLYCOHEMOGLOBIN A1Con 2022 ADA RECOMMENDATION SEE BELOW Normal [facility] Comment on above: Result Comment: ADA RECOMMENDED LIMIT 4.0 - 6.0 ADA THERAPEUTIC TARGET < 7.0 ACTION SUGGESTED > 7.0 Performed By: #### A 1C #### [facility] [address] [place] [address] Dr. Meghna Alas Glucose [Mass/Vol] 82 mg/dL Normal [facility] Comment on above: Performed By: #### A 1C #### [facility] [address] [place] [address] Dr. Meghna Alas HbA1c (Bld) [Mass fraction] 4.5 % Normal 4.5-6.2 [facility] Comment on above: Performed By: #### A 1C #### [facility] [address] [address] [address] Meghna Alas TSHon 07-26-2022 TSH 1.522 uIU/mL Normal 0.358-3.740 [facility] Comment on above: Performed By: #### T SH #### [facility] [address] [place] [address] Dr. Meghna Alas Vital Signs Date Time Vital Sign Value Performing Clinician Facility 01-16-2025 15:13-0400 Body mass index (BMI) [Ratio] 40.21 kg/m2 Layo Sherwin DO Work Phone: [facility] 01-16-2025 15:13-0400 Body weight 102.97 kg Layo Sherwin DO Work Phone: [facility] 01-16-2025 15:13-0400 Diastolic blood pressure 70 mm[Hg] Layo Sherwin DO Work Phone: [facility] 01-16-2025 15:13-0400 Systolic blood pressure 110 mm[Hg] Layo Sherwin DO Work Phone: [facility] 01-03-2025 10:15-0400 Body mass index (BMI) [Ratio] 39.47 kg/m2 Layo Sherwin DO Work Phone: [facility] 01-03-2025 10:15-0400 Body weight 101.06 kg Layo Sherwin DO Work Phone: [facility] 01-03-2025 10:15-0400 Diastolic blood pressure 74 mm[Hg] Layo Sherwin DO Work Phone: [facility] 01-03-2025 10:15-0400 Systolic blood pressure 118 mm[Hg] Layo Sherwin DO Work Phone: [facility] 12-19-2024 10:06-0400 Body mass index (BMI) [Ratio] 38.76 kg/m2 Layo Sherwin DO Work Phone: [facility] 12-19-2024 10:06-0400 Body weight 99.25 kg Layo Sherwin DO Work Phone: [facility] 12-19-2024 10:06-0400 Diastolic blood pressure 70 mm[Hg] Layo Sherwin DO Work Phone: [facility] 12-19-2024 10:06-0400 Systolic blood pressure 116 mm[Hg] Layo Sherwin DO Work Phone: [facility] 12-06-2024 08:33-0400 Body mass index (BMI) [Ratio] 38.09 kg/m2 Layo Sherwin DO Work Phone: [facility] 12-06-2024 08:33-0400 Body weight 97.52 kg Layo Sherwin DO Work Phone: [facility] 12-06-2024 08:33-0400 Diastolic blood pressure 70 mm[Hg] Layo Sherwin DO Work Phone: [facility] 12-06-2024 08:33-0400 Systolic blood pressure 100 mm[Hg] Layo Sherwin DO Work Phone: [facility] 11-08-2024 14:59-0400 Body mass index (BMI) [Ratio] 35.59 kg/m2 Layo Sehrwin DO Work Phone: [facility] 11-08-2024 14:59-0400 Body weight 91.13 kg Layo Sherwin DO Work Phone: [facility] 11-08-2024 14:59-0400 Diastolic blood pressure 80 mm[Hg] Layo Sherwin DO Work Phone: [facility] 11-08-2024 14:59-0400 Systolic blood pressure 122 mm[Hg] Layo Sherwin DO Work Phone: [facility] 10-17-2024 13:08-0400 Body mass index (BMI) [Ratio] 35.52 kg/m2 Layo Sherwin DO Work Phone: [facility] 10-17-2024 13:08-0400 Body weight 90.95 kg Layo Sherwin DO Work Phone: [facility] 10-17-2024 13:08-0400 Diastolic blood pressure 82 mm[Hg] Layo Sherwin DO Work Phone: [facility] 10-17-2024 13:08-0400 Systolic blood pressure 126 mm[Hg] Layo Sherwin DO Work Phone: [facility] 10-11-2024 14:41-0400 Body mass index (BMI) [Ratio] 35.22 kg/m2 Layo Sherwin DO Work Phone: [facility] 10-11-2024 14:41-0400 Body weight 90.17 kg Layo Sherwin DO Work Phone: [facility] 10-11-2024 14:41-0400 Diastolic blood pressure 74 mm[Hg] Layo Sherwin DO Work Phone: [facility] 10-11-2024 14:41-0400 Systolic blood pressure 112 mm[Hg] Layo Sherwin DO Work Phone: [facility] 09-06-2024 15:31-0400 Body mass index (BMI) [Ratio] 33.17 kg/m2 Brandy SEARS Work Phone: [facility] 09-06-2024 15:31-0400 Body weight 84.94 kg Brandy SEARS Work Phone: [facility] 09-06-2024 15:31-0400 Diastolic blood pressure 82 mm[Hg] Brandy SEARS Work Phone: [facility] 09-06-2024 15:31-0400 Systolic blood pressure 110 mm[Hg] Brandy SEARS Work Phone: [facility] 08-08-2024 13:08-0400 Body mass index (BMI) [Ratio] 32.2 kg/m2 Layo Sherwin DO Work Phone: [facility] 08-08-2024 13:08-0400 Body weight 82.46 kg Layo Sherwin DO Work Phone: [facility] 08-08-2024 13:08-0400 Diastolic blood pressure 64 mm[Hg] Layo Sherwin DO Work Phone: [facility] 08-08-2024 13:08-0400 Systolic blood pressure 100 mm[Hg] Layo Sherwin DO Work Phone: [facility] 07-29-2024 09:53-0400 Body mass index (BMI) [Ratio] 31.18 kg/m2 Nom [facility] 07-29-2024 09:53-0400 Body weight 79.83 kg Nom Nurse [facility] 07-29-2024 09:53-0400 Diastolic blood pressure 72 mm[Hg] [facility] Nurse [facility] 07-29-2024 09:53-0400 Systolic blood pressure 118 mm[Hg] [facility] Nurse [facility] 04-06-2024 14:04-0500 Blood Pressure Location Mallory Jauregui [facility] 04-06-2024 14:04-0500 Diastolic blood pressure 74 mm[Hg] Malloryly SethiJuventino [facility] 04-06-2024 14:04-0500 Heart rate 80 /min Mallory Sethicross [facility] 04-06-2024 14:04-0500 SaO2% (BldA) [Mass fraction] 100 % Mallory Sethicross [facility] 04-06-2024 14:04-0500 Systolic blood pressure 108 mm[Hg] Malloryly SethiJuventino [facility] 03-22-2024 10:45-0500 Diastolic blood pressure 62 mm[Hg] Juan Chavarria MD Work Phone: [facility] 03-22-2024 10:45-0500 Heart rate 65 /min Juan Chavarria MD Work Phone: [facility] 03-22-2024 10:45-0500 Respiratory rate 17 /min Juan Chavarria MD Work Phone: [facility] 03-22-2024 10:45-0500 SaO2% (BldA) [Mass fraction] 100 % Juan Chavarria MD Work Phone: [facility] 03-22-2024 10:45-0500 Systolic blood pressure 94 mm[Hg] Juan Chavarria MD Work Phone: [facility] 03-22-2024 09:45-0500 Body temperature 97.3 [degF] Juan Chavarria MD Work Phone: [facility] 03-22-2024 08:29-0500 Body height 160 cm Juan Chavarria MD Work Phone: [facility] 03-22-2024 08:29-0500 Body mass index (BMI) [Ratio] 29.25 kg/m2 Juan Chavarria MD Work Phone: [facility] 03-22-2024 08:29-0500 Body weight 74.9 kg Juan Chavarria MD Work Phone: [facility] 02-23-2024 09:49-0400 Body temperature 97.7 [degF] Juan Chavarria MD Work Phone: [facility] 02-23-2024 09:49-0400 Diastolic blood pressure 65 mm[Hg] Juan Chavarria MD Work Phone: [facility] 02-23-2024 09:49-0400 Heart rate 94 /min Juan Chavarria MD Work Phone: [facility] 02-23-2024 09:49-0400 Respiratory rate 22 /min Juan Chavarria MD Work Phone: [facility] 02-23-2024 09:49-0400 SaO2% (BldA) [Mass fraction] 100 % Juan Chavarria MD Work Phone: [facility] 02-23-2024 09:49-0400 Systolic blood pressure 102 mm[Hg] Juan Chavarria MD Work Phone: [facility] 02-23-2024 07:27-0400 Body height 160 cm Juan Chavarria MD Work Phone: [facility] 02-23-2024 07:27-0400 Body mass index (BMI) [Ratio] 29.41 kg/m2 Juan Chavarria MD Work Phone: [facility] 02-23-2024 07:27-0400 Body weight 75.3 kg Juan Chavarria MD Work Phone: [facility] 01-28-2024 10:31-0400 Diastolic blood pressure 59 mm[Hg] Leigh Ann Tuttle MD Work Phone: [facility] 01-28-2024 10:31-0400 Heart rate 71 /min Leigh Ann Tuttle MD Work Phone: [facility] 01-28-2024 10:31-0400 Respiratory rate 20 /min Leigh Ann Tuttle MD Work Phone: [facility] 01-28-2024 10:31-0400 SaO2% (BldA) [Mass fraction] 100 % Leigh Ann Tuttle MD Work Phone: [facility] 01-28-2024 10:31-0400 Systolic blood pressure 101 mm[Hg] Leigh Ann Tuttle MD Work Phone: [facility] 01-28-2024 09:31-0400 Body temperature 98.1 [degF] Leigh Ann Tuttle MD Work Phone: [facility] 01-28-2024 08:48-0400 Body height 160 cm Leigh Ann Tuttle MD Work Phone: [facility] 01-28-2024 08:48-0400 Body mass index (BMI) [Ratio] 29.21 kg/m2 Leigh Ann Tuttle MD Work Phone: [facility] 01-28-2024 08:48-0400 Body weight 74.8 kg Leigh Ann Tuttle MD Work Phone: [facility] 01-14-2024 10:52-0400 Body mass index (BMI) [Ratio] 29.43 kg/m2 Brandy Sissy PA Work Phone: [facility] 01-14-2024 10:52-0400 Body weight 75.35 kg Brandy Sissy PA Work Phone: [facility] 01-14-2024 10:52-0400 Diastolic blood pressure 70 mm[Hg] Brandy Sissy PA Work Phone: [facility] 01-14-2024 10:52-0400 Systolic blood pressure 120 mm[Hg] Brandy Sissy PA Work Phone: [facility] 12-28-2023 10:09-0400 Body height 160 cm Juan Chavarria MD Work Phone: [facility] 12-28-2023 10:09-0400 Body mass index (BMI) [Ratio] 30.11 kg/m2 Juan Chavarria MD Work Phone: [facility] 12-28-2023 10:09-0400 Body weight 77.11 kg Juan Chavarria MD Work Phone: [facility] 12-28-2023 10:09-0400 Diastolic blood pressure 81 mm[Hg] Juan Chavarria MD Work Phone: [facility] 12-28-2023 10:09-0400 Heart rate 62 /min Juan Chavarria MD Work Phone: [facility] 12-28-2023 10:09-0400 Systolic blood pressure 119 mm[Hg] Juan Chavarria MD Work Phone: [facility] 2023 08:46-0400 Body height 160 cm Trish Thorpe RADIO SCRIPT WRITER-CHILLER TECHNICIAN Work Phone: [facility] 2023 08:46-0400 Body mass index (BMI) [Ratio] 29.23 kg/m2 Trish Thorpe RADIO SCRIPT WRITER-CHILLER TECHNICIAN Work Phone: [facility] 2023 08:46-0400 Body weight 74.84 kg Trish Thorpe RADIO SCRIPT WRITER-CHILLER TECHNICIAN Work Phone: [facility] 2023 08:46-0400 Diastolic blood pressure 67 mm[Hg] Trish Thorpe RADIO SCRIPT WRITER-CHILLER TECHNICIAN Work Phone: [facility] 2023 08:46-0400 Heart rate 72 /min Trish Thorpe RADIO SCRIPT WRITER-CHILLER TECHNICIAN Work Phone: [facility] 2023 08:46-0400 Systolic blood pressure 122 mm[Hg] Trish Thorpe RADIO SCRIPT WRITER-CHILLER TECHNICIAN Work Phone: [facility] 10-02-2023 11:14-0400 Blood Pressure Location Princess Rapp [facility] 10-02-2023 11:14-0400 Body temperature 98.24 [degF] Princess Rapp [facility] 10-02-2023 11:14-0400 Diastolic blood pressure 66 mm[Hg] Princess Rapp [facility] 10-02-2023 11:14-0400 Heart rate 65 /min Princess Rapp [facility] 10-02-2023 11:14-0400 SaO2% (BldA) [Mass fraction] 98 % Princess Rapp [facility] 10-02-2023 11:14-0400 Systolic blood pressure 118 mm[Hg] Princess Rapp [facility] 08-27-2023 17:44-0400 Blood Pressure Location Princess Rapp [facility] 08-27-2023 17:44-0400 Body temperature 98.06 [degF] Princess Rapp [facility] 08-27-2023 17:44-0400 Diastolic blood pressure 76 mm[Hg] Princess Rapp [facility] 08-27-2023 17:44-0400 Heart rate 85 /min Princess Rapp [facility] 08-27-2023 17:44-0400 Respiratory rate 14 /min Princess Rapp [facility] 08-27-2023 17:44-0400 SaO2% (BldA) [Mass fraction] 99 % Princess Rapp [facility] 08-27-2023 17:44-0400 Systolic blood pressure 110 mm[Hg] Princess Rapp [facility] 02-19-2023 07:41-0400 Body temperature 97.7 [degF] Princess Rapp [facility] 02-19-2023 07:41-0400 Diastolic blood pressure 70 mm[Hg] Princess Rapp [facility] 02-19-2023 07:41-0400 Heart rate 81 /min Princess Rapp [facility] 02-19-2023 07:41-0400 SaO2% (BldA) [Mass fraction] 99 % Princess Rapp [facility] 02-19-2023 07:41-0400 Systolic blood pressure 110 mm[Hg] Princess Dionte [facility] 07-24-2021 16:57-0400 Blood Pressure Location Leigh Ann [facility] 07-24-2021 16:57-0400 Body temperature 97.7 [degF] Leigh Ann [facility] 07-24-2021 16:57-0400 Diastolic blood pressure 68 mm[Hg] Leigh Ann [facility] 07-24-2021 16:57-0400 Heart rate 88 /min Leigh Ann [facility] 07-24-2021 16:57-0400 SaO2% (BldA) [Mass fraction] 99 % Leigh Ann [facility] 07-24-2021 16:57-0400 Systolic blood pressure 122 mm[Hg] Leigh Ann [facility] Encounters Encounter Date Encounter [...] on above: 33 weeks gestation o f ([facility]); Third trimester ([facility]); Group B streptococcal infection; resulting from in vitro fertilization in first trimester ([facility]) Start: 01-16-2025 End: 01-16-2025 ambulatory LAYO SHERWIN Not Available Start: 01-16-2025 End: 01-16-2025 Bamboo flowsheet Layo Sherwin DO Work Phone: [facility] Start: 01-16-2025 End: 01-16-2025 Bamboo flowsheet Layo [...] sheet Layo Sherwin DO Work Phone: [facility] Comment on above: Third trimester preg rehan ([facility]); 31 weeks gestation of ([facility]); resulting from in vitro fertilization in third trimester ([facility]) Start: 01-03-2025 End: 01-03-2025 ambulatory LAYO SHERWIN Not Available Start: 12-19-2024 End: 12-19-2024 flow sheet Layo Sherwin DO Work Phone: [facility] Comment on above: 29 weeks gestation o f ([facility]); Third trimester ([facility]); Leukocytes in urine; Other microscopic hematuria [...] on above: 27 weeks gestation o f ([facility]); Second trimester ([facility]) Start: 12-06-2024 End: 12-06-2024 ambulatory LAYO SHERWIN Not Available Start: 11-26-2024 End: 11-26-2024 Clinisync Result Encounter Layo Sherwin DO Work Phone: [facility] Unsolicited Start: 11-26-2024 End: 11-26-2024 Clinisync Result Encounter Layo Sherwin DO Work Phone: [facility] Unsolicited Start: 11-08-2024 End: 11-08-2024 flow sheet Layo Sherwin DO Work Phone: [facility] Comment on above: Second trimester pre gnancy ([facility]); 26 weeks gestation of ([facility]); Diabetes mellitus screening Start: 11-08-2024 End: [...] pain without sciatica (Primary Dx); Second trimester ([facility]); 20 weeks gestation of ([facility]) Start: 10-17-2024 End: 10-17-2024 ambulatory LAYO [...] Ultrasound 1 [facility] Comment on above: ([facility]) Start: 10-07-2024 End: 10-07-2024 ambulatory LAYO JUSTICE [facility] Start: 09-22-2024 End: 09-22-2024 ambulatory BRANDY SPIVEYEY [...] End: 07-11-2024 Patient encounter procedure Donya Abernathy RADIO SCRIPT WRITER-CHILLER TECHNICIAN Work Phone: [facility] Comment on above: Fertility testing (P rimary Dx); Encounter to determine viability of , single or unspecified fetus Start: 07-11-2024 End: 07-11-2024 ambulatory DONYA Pickard [facility] Start: 06-30-2024 End: 06-30-2024 [facility] Start: 06-23-2024 End: 06-23-2024 [facility] Start: 06-23-2024 End: 06-23-2024 ambulatory [facility] Start: 06-13-2024 End: 06-13-2024 Subsequent hospital visit by physician Juan Chavarria MD Work Phone: [facility] Comment on above: Encounter for assist ed reproductive fertility cycle Start: 06-13-2024 End: 06-13-2024 ambulatory JUAN CHAVARRIA Start: 06-07-2024 End: 06-07-2024 ambulatory [facility] Start: 06-06-2024 End: 06-06-2024 [facility] Start: 06-06-2024 End: 06-06-2024 Professional / ancillary services management Myles Sullivan [facility] Comment on above: Female infertility Start: 06-06-2024 End: 06-06-2024 ambulatory [facility] Start: 05-23-2024 End: 05-23-2024 ambulatory [facility] Start: 04-06-2024 ambulatory Mallory Esparza lity:Jessica ORDAZ Start: 04-06-2024 End: 04-06-2024 Patient encounter procedure Mallory Jauregui [facility] Start: 03-22-2024 End: 03-22-2024 Subsequent hospital visit by physician Juan Chavarria MD Work Phone: [facility] Comment on above: Encounter for assist ed reproductive fertility cycle Start: 03-22-2024 End: 03-22-2024 ambulatory JUAN CHAVARRIA Start: 03-21-2024 End: 03-21-2024 ambulatory [facility] Start: 03-20-2024 End: 03-20-2024 Professional / ancillary services management Mac [id number] [facility] Comment on above: Female infertility Start: 03-20-2024 End: 03-20-2024 [facility] Start: 03-19-2024 End: 03-19-2024 Professional / ancillary services management Mac [id number] [facility] Comment on above: Female infertility Start: 03-19-2024 End: 03-19-2024 [facility] Start: 03-17-2024 End: 03-17-2024 [facility] Start: 03-17-2024 End: 03-17-2024 Professional / ancillary services management Mac [id number] [facility] Comment on above: Female infertility Start: 03-17-2024 End: 03-17-2024 [facility] Start: 03-15-2024 End: 03-15-2024 ambulatory [facility] Start: 03-15-2024 End: 03-15-2024 [facility] Start: 03-15-2024 End: 03-15-2024 Professional / ancillary services management Mac [id number] [facility] Comment on above: Female infertility Start: 03-09-2024 End: 03-09-2024 ambulatory [facility] Start: 03-09-2024 End: 03-09-2024 Patient encounter status [facility] Start: 03-09-2024 End: 03-09-2024 Professional / ancillary services management Mac [id number] [facility] Ul[facility] Valeria Hay Comment on above: Female infertility; Pre-procedure lab exam Start: 03-09-2024 End: 03-09-2024 ambulatory AMERICA Gt [facility] Start: 02-23-2024 End: 02-23-2024 Subsequent hospital visit by physician Juan Chavarria MD Work Phone: Valeria Hay Comment on above: Encounter for assist ed reproductive fertility cycle Start: 02-23-2024 End: 02-23-2024 ambulatory JAUN CHAVARRIA Start: 02-22-2024 End: 02-22-2024 ambulatory [facility] Start: 02-21-2024 End: 02-21-2024 Professional / ancillary services management Mac [id number] Kels[facility] Ultrasound Valeria Hay Comment on above: Female infertility Start: 02-21-2024 End: 02-21-2024 ambulatory AMERICA Gt [facility] Start: 02-20-2024 End: 02-20-2024 [facility] Start: 02-20-2024 End: 02-20-2024 Professional / ancillary services management Mac [id number] Kelsy Ultrasound Valeria Hay Comment on above: Female infertility Start: 02-20-2024 End: 02-20-2024 ambulatory AMERICA Gt [facility] Start: 02-18-2024 End: 02-18-2024 ambulatory [facility] Start: 02-18-2024 End: 02-18-2024 Professional / ancillary services management Mac [id number] Kelsy Ultrasound Valeria Hay Comment on above: Female infertility Start: 02-18-2024 End: 02-18-2024 ambulatory AMERICA Gt [facility] Start: 02-16-2024 End: 02-16-2024 Professional / ancillary services management Myles [id number] Kelsy Ultrasound [facility] Comment on above: Female infertility Start: 02-16-2024 End: 02-16-2024 ambulatory AMERICA Del Real [facility] Start: 02-09-2024 End: 02-09-2024 Patient encounter status Mac Ultrasound [facility] Start: 02-09-2024 End: 02-09-2024 Professional / ancillary services management [facility] [id number] Kelsy Ultrasound [facility] Comment on above: Pre-procedure lab ex am; Female infertility Start: 02-09-2024 End: 02-09-2024 ambulatory AMERICA Gt [facility] Start: 02-02-2024 End: 02-02-2024 ambulatory [facility] Start: 01-28-2024 End: 01-28-2024 Subsequent hospital visit by physician Leigh Ann Tuttle MD Work Phone: [facility] Darlinfadi Hay Comment on above: Endometrial polyp Start: 01-28-2024 End: 01-28-2024 ambulatory LEIGH ANN TUTTLE Start: 01-25-2024 End: 01-25-2024 ambulatory [facility] Start: 01-25-2024 End: 01-25-2024 Encounter for preprocedural laboratory examination [facility] Start: 01-14-2024 End: 01-14-2024 Bamboo flowsheet Brandy [...] preventive med est patient 18-39 yrs Brandy [place] [facility] Work Phone: [facility] Comment on above: Well woman exam with routine gynecological exam Start: 12-28-2023 End: 12-28-2023 Patient encounter procedure Juan Chavarria MD Work Phone: [facility] Comment on above: Fertility testing [Z 31.41] (Primary Dx); 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 [Z31.81, N97.8] Start: 12-28-2023 End: 12-28-2023 ambulatory JUAN CHAVARRIA Start: 12-25-2023 End: 12-25-2023 ambulatory AFUA JULIAN Start: 2023 End: 2023 ambulatory [facility] Start: 2023 End: 2023 Patient encounter procedure Trish Thorpe RADIO SCRIPT WRITER-CHILLER TECHNICIAN Work Phone: [facility] Comment on above: Encounter for screen ing for other viral diseases (Primary Dx); Encounter for Rh blood typing; Screening for STDs (sexually transmitted diseases); Genetic screening; Fertility testing; Female infertility associated with male factors Start: 2023 End: 2023 Patient encounter status Trish Thorpe RADIO SCRIPT WRITER-CHILLER TECHNICIAN Work Phone: [facility] Work Phone: Start: 2023 End: 2023 ambulatory [facility] Start: 2023 End: 2023 Encounter for blood typing TRISH Ploo [facility] Start: 10-21-2023 ambulatory Princess Rapp Facil ity:[facility] Start: 10-02-2023 End: 10-02-2023 ambulatory Princess Rapp Facility:[facility] Start: 10-02-2023 End: 10-02-2023 Patient encounter procedure Princess Rapp [facility] Start: 08-27-2023 End: 08-27-2023 ambulatory Princess Rapp Facility:[facility] Start: 08-27-2023 End: 08-27-2023 Patient encounter procedure Princess Rapp [facility] Start: 03-25-2023 End: 03-25-2023 Patient encounter procedure Princess Rapp [facility] Start: 02-19-2023 End: 02-19-2023 Patient encounter procedure Princess Rapp [facility] Start: 07-26-2022 End: 07-27-[address] LAYO COURTNEY . Facility:[facility] Start: 07-23-2022 End: 07-23-[address] LAYO COURTNEY . Facility: Start: 07-24-2021 End: 07-24-2021 Patient encounter procedure Leigh Ann [place] [facility] Procedures Date Procedure Procedure [...] dip stick/tabl et rgnt non-auto w/o micrscp Laoy Sherwin DO Work Phone: Start: 12-06-2024 GLUCOSE [...] ic image dcmtn limited/f/u Donya Pickard Josemanuel RADIO SCRIPT WRITER-CHILLER TECHNICIAN Work Phone: Start: 03-22-2024 Follicle puncture oo cyte retrieval any method Donya Pickard Josemanuel RADIO SCRIPT WRITER-CHILLER TECHNICIAN Work Phone: Start: 03-20-2024 Us pelvic nonobstetr ic image dcmtn limited/f/u Donya Pickard Josemanuel RADIO SCRIPT WRITER-CHILLER TECHNICIAN Work Phone: Start: 03-20-2024 Assay of estradiol America Fitzpatrickle RADIO SCRIPT WRITER-CHILLER TECHNICIAN Work Phone: Start: 03-19-2024 Us pelvic nonobstetr ic image dcmtn limited/f/u Donya Pickard Josemanuel RADIO SCRIPT WRITER-CHILLER TECHNICIAN Work Phone: Start: 03-17-2024 Us pelvic nonobstetr ic image dcmtn limited/f/u Donya Pickard Josemanuel RADIO SCRIPT WRITER-CHILLER TECHNICIAN Work Phone: Start: 03-17-2024 Assay of estradiol Donya Pickard Josemanuel RADIO SCRIPT WRITER-CHILLER TECHNICIAN Work Phone: Start: 03-15-2024 Us pelvic nonobstetr ic image dcmtn limited/f/u Donya Pickard Josemanuel RADIO SCRIPT WRITER-CHILLER TECHNICIAN Work Phone: Start: 03-15-2024 Assay of estradiol Donya Pickard Josemanuel RADIO SCRIPT WRITER-CHILLER TECHNICIAN Work Phone: Start: 03-09-2024 Us pelvic nonobstetr ic image dcmtn limited/f/u America Gt Dwight RADIO SCRIPT WRITER-CHILLER TECHNICIAN Work Phone: Start: 03-09-2024 Blood count hematocrit Donya Melly Abernathy RADIO SCRIPT WRITER-CHILLER TECHNICIAN Work Phone: Start: 02-23-2024 Follicle puncture oo cyte retrieval any method Beth Warren MD Work Phone: Start: 02-21-2024 Us pelvic nonobstetr ic image dcmtn limited/f/u America Gt Chavez RADIO SCRIPT WRITER-CHILLER TECHNICIAN Work Phone: Start: 02-21-2024 Gonadotropin luteini zing hormone Beti Warren MD Work Phone: Start: 02-18-2024 Us pelvic nonobstetr ic image dcmtn limited/f/u America R Dwight RADIO SCRIPT WRITER-CHILLER TECHNICIAN Work Phone: Start: 02-18-2024 Assay of estradiol America R Dwight RADIO SCRIPT WRITER-CHILLER TECHNICIAN Work Phone: Start: 02-16-2024 Assay of estradiol America R Dwight RADIO SCRIPT WRITER-CHILLER TECHNICIAN Work Phone: Start: 02-09-2024 Blood count hematocrit America R Dwight RADIO SCRIPT WRITER-CHILLER TECHNICIAN Work Phone: Start: 02-09-2024 Us pelvic nonobstetr ic image dcmtn limited/f/u America R Dwight RADIO SCRIPT WRITER-CHILLER TECHNICIAN Work Phone: Start: 01-28-2024 Hysteroscopy bx endometrium&/polypc [...] knee anterior cruciate ligament allograft reconstruction with [id number], debridment medial meniscus tear, patellofemoral chondroplasty-Grade I-II Leigh Ann Bojorquezell Tonsillectomy Leigh Ann [place] tubes in the ears Leigh Ann bartholomew Plan of Treatment Date Care Activity Detail Author Start: 2072 RSV High Risk: (Elderly (60+) or Population) (1 - 1-dose 75+ series) RSV High Risk: (Elderly (60+) or Population) (1 - 1-dose 75+ series) [facility] Start: 12-12-2047 Zoster Vaccines (1 of 2) Zoster Vaccines (1 of 2) [facility] Start: 01-13-2027 Screening for malignant neoplasm of cervix [facility] Start: 01-30-2025 End: 01-30-2025 Patient encounter procedure 01/30/2025 3:50 PM EDT Routine SHIRA ZACARIAS [address] [place] [address] Maria M Guerrero, SOLVENT MIXER [address] [place] [address] SHIRA ZACARIAS Start: 01-16-2025 End: 01-16-2025 Patient encounter procedure SHIRA Naidu Comment on above: Arrived Start: 01-03-2025 End: 07-03-2025 US biophysical profile w non stress test US biophysical profile w non stress test Imaging Routine resulting from in vitro fertilization in third trimester ([facility]) Expected: 01/03/2025 (Approximate), Expires: 07/03/2025 [facility] Work Phone: Comment on above: Expected: 01/03/2025 (Approximate), Expi res: 07/03/2025 Start: 01-03-2025 End: 01-03-2025 Patient encounter procedure SHIRA Naidu Comment on above: Arrived Start: 01-02-2025 Influenza vaccination Influenza Vaccine (Season Ended) [facility] Start: 12-19-2024 End: 12-19-2024 Professional / ancillary services management 12/19/2024 9:30 AM EDT Ancillary Procedure SHIRA [facility] [address] [place] [phone] [facility] Start: 12-19-2024 End: 12-19-2024 Patient encounter procedure [facility] Start: 12-06-2024 End: 12-06-2024 Patient encounter procedure [facility] Comment on above: Arrived Start: 11-08-2024 End: 11-08-2024 Patient encounter procedure 11/08/2024 2:40 PM EDT Routine [facility] [address] [place] [phone] Layo Courtney, DO [address] [place], [place] [id number] [facility] Start: 11-08-2024 End: 11-08-2025 CBC panel - Blood by Automated count CBC Lab Routine Diabetes mellitus screening Expected: 11/08/2024 (Approximate), Expires: 11/08/2025 [facility] Work Phone: Comment on above: Expected: 11/08/2024 (Approximate), Expi res: 11/08/2025 Start: 11-08-2024 End: 11-08-2025 Measurement of glucose 1 hour after glucose challenge for glucose tolerance test Glucose tolerance, 1 hour Lab Routine Diabetes mellitus screening Expected: 11/08/2024 (Approximate), Expires: 11/08/2025 [facility] Comment on above: Expected: 11/08/2024 (Approximate), Expi res: 11/08/2025 Start: 10-17-2024 End: 10-17-2024 Patient encounter procedure 10/17/2024 1:00 PM EDT Routine [facility] [address] [place] [phone] Layo Courtney, DO [address] [place], [place] [id number] Arrived [facility] Comment on above: Arrived Start: 10-11-2024 End: 10-11-2024 Patient encounter procedure [facility] Comment on above: Arrived Start: 10-11-2024 End: 10-11-2025 Bile acids, total Bile acids, total Lab Routine Pruritus Expected: 10/11/2024 (Approximate), Expires: 10/11/2025 [facility] Comment on above: Expected: 10/11/2024 (Approximate), Expi res: 10/11/2025 Start: 10-11-2024 End: 10-11-2025 CBC W Auto Differential panel - Blood CBC and differential Lab Routine Pruritus Expected: 10/11/2024 (Approximate), Expires: 10/11/2025 [facility] Comment on above: Expected: 10/11/2024 (Approximate), Expi res: 10/11/2025 Start: 10-11-2024 End: 10-11-2025 Hepatic function 2000 panel - Serum or Plasma Hepatic function panel Lab Routine Pruritus Expected: 10/11/2024 (Approximate), Expires: 10/11/2025 [facility] Comment on above: Expected: 10/11/2024 (Approximate), Expi res: 10/11/2025 Start: 10-11-2024 End: 10-11-2025 Hepatitis C virus Ab [Presence] in Serum or Plasma by Immunoassay Hepatitis C antibody Lab Routine Pruritus Expected: 10/11/2024 (Approximate), Expires: 10/11/2025 [facility] Work Phone: Comment on above: Expected: 10/11/2024 (Approximate), Expi res: 10/11/2025 Start: 10-11-2024 End: 10-11-2025 Thyrotropin [Units/volume] in Serum or Plasma TSH Lab Routine Pruritus Expected: 10/11/2024 (Approximate), Expires: 10/11/2025 [facility] Comment on above: Expected: 10/11/2024 (Approximate), Expi res: 10/11/2025 Start: 09-06-2024 End: 09-06-2024 Patient encounter procedure [facility] Comment on above: Arrived Start: 09-06-2024 End: 11-06-2024 Alpha fetoprotein, maternal Alpha fetoprotein, maternal Lab Routine Second trimester Expected: 09/06/2024 (Approximate), Expires: 11/06/2024 [facility] Comment on above: Expected: 09/06/2024 (Approximate), Expi res: 11/06/2024 Start: 09-06-2024 End: 12-07-2024 US for US OB 14+ weeks anatomy scan Imaging Routine Screening, , for anatomic survey Expected: 09/06/2024, Expires: 12/07/2024 [facility] Comment on above: Expected: 09/06/2024, Expires: Start: 08-08-2024 End: 08-08-2024 Patient encounter procedure [facility] Comment on above: Arrived Start: 07-29-2024 End: 07-29-2025 ABO/Rh ABO/Rh Lab Routine Missed menses , unspecified gestational age Expected: 07/29/2024 (Approximate), Expires: 07/29/2025 [facility] Comment on above: Expected: 07/29/2024 (Approximate), Expi res: 07/29/2025 Start: 07-29-2024 End: 07-29-2025 Blood type and Indirect antibody screen panel - Blood Type and screen Lab Routine Missed menses , unspecified gestational age Expected: 07/29/2024 (Approximate), Expires: 07/29/2025 [facility] Work Phone: Comment on above: Expected: 07/29/2024 (Approximate), Expi res: 07/29/2025 Start: 07-29-2024 End: 07-29-2025 Drugs of abuse panel - Urine by Screen method Rapid drug screen, urine Lab Routine , unspecified gestational age Encounter for supervision of normal first in first trimester Expected: 07/29/2024 (Approximate), Expires: 07/29/2025 [facility] Comment on above: Expected: 07/29/2024 (Approximate), Expi res: 07/29/2025 Start: 07-11-2024 End: 07-11-2025 Progesterone [Mass/volume] in Serum or Plasma Progesterone Lab Routine Fertility testing Expected: 07/11/2024 (Approximate), Expires: 07/11/2025 [facility] Service Area Work Phone: Comment on above: Expected: 07/11/2024 (Approximate), Expi res: 07/11/2025 Start: 06-23-2024 Orders Only 06/23/2024 Orders Only Valeria Hay [address] [place] [address] Ira Lopez RN Encounter for test, result unknown Valeria Hay Comment on above: Encounter for test, result unk nown Start: 03-20-2024 End: 03-20-2025 Lutropin [Units/volume] in Serum or Plasma Luteinizing Hormone Lab STAT Female infertility Expected: 03/20/2024 (Approximate), Expires: 03/20/2025 [facility] Work Phone: Comment on above: Expected: 03/20/2024 (Approximate), Expi res: 03/20/2025 Start: 03-20-2024 End: 03-20-2025 Progesterone [Mass/volume] in Serum or Plasma Progesterone Lab STAT Female infertility Expected: 03/20/2024 (Approximate), Expires: 03/20/2025 [facility] Service Area Work Phone: Comment on above: Expected: 03/20/2024 (Approximate), Expi res: 03/20/2025 Start: 03-20-2024 End: 03-20-2024 Professional / ancillary services management 03/20/2024 8:00 AM EST Ancillary Procedure Valeria Simmonson [address] [place] [address] Valeria Simmonson Start: 03-19-2024 End: 03-19-2024 Professional / ancillary services management 03/19/2024 8:30 AM EST Ancillary Procedure TERRY Simmonson [address] [place] [address] Valeria Hay Start: 03-17-2024 End: 03-17-2025 Estradiol (E2) [Mass/volume] in Serum or Plasma Estradiol Lab STAT Female infertility Expected: 03/17/2024 (Approximate), Expires: 03/17/2025 [facility] Service Area Work Phone: Comment on above: Expected: 03/17/2024 (Approximate), Expi res: 03/17/2025 Start: 03-17-2024 End: 03-17-2025 Progesterone [Mass/volume] in Serum or Plasma [facility] Work Phone: Comment on above: Expected: 03/17/2024 (Approximate), Expi res: 03/17/2025 Start: 03-17-2024 End: 03-17-2024 Professional / ancillary services management 03/17/2024 6:45 AM EST Ancillary Procedure [facility] [address] [place] [phone] [facility] Start: 03-15-2024 End: 03-15-2024 Professional / ancillary services management 03/15/2024 6:45 AM EST Ancillary Procedure Valeria [facility]el [facility] [address] [place] [address] [facility] Start: 03-09-2024 End: 03-09-2024 Professional / ancillary services management 03/09/2024 7:15 AM EST Ancillary Procedure [facility] [address] [place] [address] [facility] Start: 02-23-2024 End: 02-23-2024 Patient encounter procedure 02/23/2024 8:30 AM EDT Appointment [facility] [address] [place] [phone] Juan Chavarria MD [address] [place] [id number] [place] [id number] Manuela Schrader Department of Anesthesiology [place] [address] [facility] Start: 02-21-2024 End: 02-21-2024 Professional / ancillary services management 02/21/2024 8:30 AM EDT Ancillary Procedure Shaw Risfadi Hay [address] [place] [address] Shaw Darlinfadi Satnam Start: 02-20-2024 End: 02-17-2025 Estradiol (E2) [Mass/volume] in Serum or Plasma Estradiol Lab STAT Female infertility Expected: 02/20/2024 (Approximate), Expires: 02/17/2025 [facility] Service Area Work Phone: Comment on above: Expected: 02/20/2024 (Approximate), Expi res: 02/17/2025 Start: 02-20-2024 End: 02-17-2025 Progesterone [Mass/volume] in Serum or Plasma Progesterone Lab STAT Female infertility Expected: 02/20/2024 (Approximate), Expires: 02/17/2025 [facility] Work Phone: Comment on above: Expected: 02/20/2024 (Approximate), Expi res: 02/17/2025 Start: 02-20-2024 End: 02-20-2024 Professional / ancillary services management 02/20/2024 8:30 AM EDT Ancillary Procedure Valeria Chanel [facility] [address] [place] [address] Shaw Darío Hay Start: 02-18-2024 End: 02-18-2024 Professional / ancillary services management 02/18/2024 7:45 AM EDT Ancillary Procedure Shaw Risfadi Hay [address] [place] [address] Shaw Darío Hay Start: 02-16-2024 End: 02-16-2024 Professional / ancillary services management 02/16/2024 7:15 AM EDT Ancillary Procedure [facility] [address] [place] [address] [facility] Start: 02-09-2024 End: 02-09-2024 Professional / ancillary services management 02/09/2024 7:15 AM EDT Ancillary Procedure [facility] [address] [place] [address] [facility] Start: 01-14-2024 End: 01-14-2024 Patient encounter procedure 01/14/2024 11:00 AM EDT Office Visit [facility] [address] [place] [phone] Brandy Sheehan PA [address] [place] [address] Arrived [facility] Comment on above: Arrived Start: 01-03-2024 COVID-19 Vaccine () COVID-19 Vaccine ( season) [facility] Start: 01-03-2024 COVID-19 Vaccine () COVID-19 Vaccine () [facility] Start: 01-03-2024 Influenza vaccination Influenza Vaccine (#1) [facility] Start: 12-25-2023 End: 12-25-2023 Telemedicine consultation with patient 12/25/2023 9:00 AM EDT Telemedicine Clinical Support [facility] [address] [facility] [address] [place] [phone] Afua Julina I, LGC [address] [facility] [place] [address] [facility] Start: 2023 End: 12-10-2024 Chlamydia trachomatis and Neisseria gonorrhoeae DNA [Identifier] in Unspecified specimen by EDELMIRA with probe detection [facility] Work Phone: Comment on above: Expected: 2023 (Approximate), Expi res: 12/10/2024 Start: 2023 End: 12-10-2024 Hepatitis B virus surface Ag [Presence] in Serum or Plasma by Immunoassay [facility] Work Phone: Comment on above: Expected: 2023 (Approximate), Expi res: 12/10/2024 Start: 2023 End: 12-10-2024 Hepatitis C virus Ab [Presence] in Serum [facility] Work Phone: Comment on above: Expected: 2023 (Approximate), Expi res: 12/10/2024 Start: 2023 End: 12-10-2024 HIV 1+2 Ab+HIV1 p24 Ag [Presence] in Serum or Plasma by Immunoassay [facility] Work Phone: Comment on above: Expected: 2023 (Approximate), Expi res: 12/10/2024 Start: 2023 End: 12-10-2024 Rubella virus IgG Ab [Units/volume] in Serum [facility] Service Area Work Phone: Comment on above: Expected: 2023 (Approximate), Expi res: 12/10/2024 Start: 2023 End: 12-10-2024 Treponema pallidum IgG+IgM Ab [Presence] in Serum by Immunoassay [facility] Work Phone: Comment on above: Expected: 2023 (Approximate), Expi res: 12/10/2024 Start: 2023 End: 12-10-2024 Varicella zoster virus IgG Ab [Presence] in Serum by Immunoassay [facility] Work Phone: Comment on above: Expected: 2023 (Approximate), Expi res: 12/10/2024 Start: 01-02-2023 COVID-19 Vaccine ( season) COVID-19 Vaccine ( season) [facility] Start: 12-21-2019 DTaP/Tdap/Td Vaccines (2 - Td or Tdap) DTaP/Tdap/Td Vaccines (2 - Td or Tdap) [facility] Start: 2018 Screening for malignant neoplasm of cervix [facility] Start: 2016 Hepatitis B Vaccines (1 of 3 - 19+ 3-dose series) Hepatitis B Vaccines (1 of 3 - 19+ 3-dose series) [facility] Start: 12-12-2015 Hepatitis C screening Hepatitis C Screening [facility] Start: 2012 HPV Vaccines (1 - 3-dose series) HPV Vaccines (1 - 3-dose series) [facility] Start: 03-14-2010 Varicella vaccination Varicella Vaccines (2 of 2 - 2-dose childhood series) [facility] Start: 01-17-2010 MMR Vaccines (1 of 1 - Standard series) MMR Vaccines (1 of 1 - Standard series) [facility] Start: 1997 HIV screening HIV Screening [facility] Start: 1997 Lipid panel Lipid Panel [facility] Start: 1997 Yearly Adult Physical Yearly Adult Physical [facility] Bacteria identified in Urine by Culture Urine culture Microbiology Routine Missed menses Ordered: 07/29/2024 [facility] Comment on above: Ordered: 07/29/2024 Bacteria identified in Urine by Culture Urine culture Microbiology Routine Leukocytes in urine Other microscopic hematuria Ordered: 12/19/2024 [facility] Work Phone: Comment on above: Ordered: 12/19/2024 CBC W Auto Different ial panel - Blood CBC and differential Lab Routine Missed menses , unspecified gestational age Ordered: 07/29/2024 [facility] Comment on above: Ordered: 07/29/2024 CHLAMYDIA TRACHOMATI S (GENITO/STI) CHLAMYDIA TRACHOMATIS (GENITO/STI) Lab Routine STD exposure Ordered: 09/06/2024 [facility] Comment on above: Ordered: 09/06/2024 End: 02-23-2024 Choriogonadotropin ( test) [Presence] in Urine POCT , urine manually resulted Point of Care Testing Routine Once (Lab) for 1 Occurrences starting 02/23/2024 until 02/23/2024 [facility] Service Area Work Phone: Comment on above: Once (Lab) for 1 Occurrences starting until 02/23/2024 End: 03-22-2024 Choriogonadotropin ( test) [Presence] in Urine POCT , urine manually resulted Point of Care Testing Routine Once (Lab) for 1 Occurrences starting 03/22/2024 until 03/22/2024 [facility] Service Area Work Phone: Comment on above: Once (Lab) for 1 Occurrences starting until 03/22/2024 End: 06-13-2024 Choriogonadotropin ( test) [Presence] in Urine POCT , urine manually resulted Point of Care Testing Routine Once (Lab) for 1 Occurrences starting 06/13/2024 until 06/13/2024 [facility] Service Area Work Phone: Comment on above: Once (Lab) for 1 Occurrences starting until 06/13/2024 Cytology Cervical or vaginal smear or scraping study Pap Smear Pathology and Cytology Routine Well woman exam with routine gynecological exam Ordered: 01/14/2024 [facility] Work Phone: Comment on above: Ordered: 01/14/2024 Hemoglobin A1c/Hemoglobin.total in Blood Hemoglobin A1c Lab Routine Missed menses , unspecified gestational age Ordered: 07/29/2024 [facility] Comment on above: Ordered: 07/29/2024 Hepatitis B virus abrams rface Ag [Presence] in Serum or Plasma by Immunoassay Hepatitis B surface antigen Lab Routine Missed menses , unspecified gestational age Ordered: 07/29/2024 [facility] Comment on above: Ordered: 07/29/2024 Hepatitis C virus Ab [Presence] in Serum or Plasma by Immunoassay Hepatitis C antibody Lab Routine Missed menses , unspecified gestational age Ordered: 07/29/2024 [facility] Comment on above: Ordered: 07/29/2024 HIV-1/HIV-2 antigen/antibody combination immunoassay HIV-1 and HIV-2 antibodies Lab Routine Missed menses , unspecified gestational age Ordered: 07/29/2024 [facility] Comment on above: Ordered: 07/29/2024 Neisseria gonorrhoea e DNA [Presence] in Unspecified specimen by EDELMIRA with probe detection Neisseria gonorrhea DNA probe, direct Lab Routine STD exposure Ordered: 09/06/2024 [facility] Comment on above: Ordered: 09/06/2024 Reagin Ab [Presence] in Serum by RPR RPR Lab Routine Missed menses , unspecified gestational age Ordered: 07/29/2024 [facility] Comment on above: Ordered: 07/29/2024 [facility] US Pelvis Limite d Follicles - Follicle Studies Performed [facility] US Pelvis Limited Follicles - Follicle Studies Performed Imaging Routine Female infertility 02/16/2024 7:17 AM EDT [facility] Work Phone: KELSY US Pelvis Limite d Follicles - Follicle Studies Performed KELSY US Pelvis Limited Follicles - Follicle Studies Performed Imaging Routine Female infertility 02/20/2024 9:06 AM EDT [facility] Work Phone: Rubella antibody, IgG Rubella an tibody, IgG Lab Routine Missed menses , unspecified gestational age Ordered: 07/29/2024 [facility] Comment on above: Ordered: 07/29/2024 SURESWAB(R) ADVANCED VAGINITIS PLUS, TMA SURESWAB(R) ADVANCED VAGINITIS PLUS, TMA Pathology and Cytology Routine STD exposure Ordered: 09/06/2024 [facility] Work Phone: Comment on above: Ordered: 09/06/2024 End: 01-28-2024 Surgical pathology study [facility] Work Phone: Comment on above: Once (Lab) for 1 Occurrences starting until 01/28/2024, 1 completed Once (Lab) for 1 Occ urrences starting 01/28/2024 until 01/28/2024 Immunizations Immunization Date Immunization Notes Care Provider Shahid mares 12-20-2009 meningococcal ACWY vaccine, unspecified formulation Princess Rapp [facility] 12-20-2009 tetanus toxoid, reduced diphtheria toxoid, and acellular pertussis vaccine, adsorbed Princess Rapp [facility] 12-20-2009 varicella virus vaccine Princess Rapp [facility] NEGATED: Highlighted row has not occurred!04-06-2024 influenza virus vaccine, unspecified formulation Mallory Jauregui [facility] NEGATED: Highlighted row has not occurred!06-26-2021 influenza virus vaccine, unspecified formulation Leigh Ann Covington [facility] NEGATED: Highlighted row has not occurred!06-26-2021 SARS-CoV-2 (COVID-19) Ad26 vaccine, recombinant Leigh Ann C[facility] NEGATED: Highlighted row has not occurred!01-29-2021 influenza virus vaccine, unspecified formulation Leigh Ann [facility] NEGATED: Highlighted row has not occurred!01-29-2021 SARS-CoV-2 (COVID-19) Ad26 vaccine, recombinant Leigh Ann C[facility] NEGATED: Highlighted row has not occurred!05-03-2019 influenza virus vaccine, live, attenuated, for intranasal use Leigh Ann [facility] NEGATED: Highlighted row has not occurred!09-30-2018 influenza virus vaccine, unspecified formulation Leigh Ann C[facility]ton [facility] Payers Date Payer Category Payer Managed Care (Private) [id number] [id number] 2022 Private Health Insurance [employer] [id number] 2022 Unknown [id number]. 1.13.647.2. [id number] 2022 Unknown [id number] 1997 Unknown [id number] 2.16.840.1.406625.3.579.2. 593 1997 Unknown [id number] 2.16.840.1.063955.3.579.2. 593 1997 Unknown [id number] 2.16.840.1.189025.3.579.2. 727 1997 Unknown [id number] 2.16.840.1.641388.3.579.2. 727 1997 Unknown [id number] 2.16840.1.216421.3.579.2. 727 1997 Unknown [id number] 2.16.840.1.110102.3.579.2. 727 1997 Unknown [id number] 2.16.840.1.656673.3.579.2. 124 1997 Unknown [id number] 2.16.840.1.272648.3.579.2. 1243 1997 Unknown [id number] 2.16.840.1.468839.3.579.2. 1243 1997 Unknown [id number] 2.16.840.1.860524.3.579.2. 1245 1997 Unknown [id number] 2.16.840.1.433548.3.579.2. 124 1997 Unknown [id number] 2.16.840.1.267579.3.579.2. 1245 1997 Unknown [id number] 2.16.840.1.868225.3.579.2. 124 1997 Unknown [id number] 2.16.840.1.610741.3.579.2. 1244 1997 Unknown [id number] 2.16.840.1.414390.3.579.2. 1244 1997 Unknown [id number] 2.16.840.1.514817.3.579.2. 1244 1997 Unknown [id number] 2.16840.1.591423.3.579.2. 1244 1997 Unknown [id number] 2.16.840.1.109749.3.579.2. 1244 1997 Unknown [id number] 2.16840.1.949292.3.579.2. 1244 1997 Unknown [id number] 2.16840.1.336588.3.579.2. 1244 1997 Unknown [id number] 2.840.1.664278.3.579.2. 1244 1997 Unknown [id number] 2.840.1.062990.3.579.2. 1244 1997 Unknown [id number] 2.840.1.900546.3.579.2. 1244 1997 Unknown [id number] 2.16840.1.390326.3.579.2. 1244 1997 Unknown [id number] 2.16840.1.639842.3.579.2. 1244 1997 Unknown [id number] 2.16840.1.456996.3.579.2. 1244 1997 Unknown [id number] 2.16840.1.310832.3.579.2. 1244 1997 Unknown [id number] 2.16840.1.785841.3.579.2. 1244 1997 Unknown [id number] 2.16840.1.160166.3.579.2. 1244 1997 Unknown [id number] 2.16840.1.582574.3.579.2. 1244 1997 Unknown [id number] 2.16840.1.977692.3.579.2. 1244 1997 Unknown [id number] 2.16840.1.032997.3.579.2. 1244 1997 Unknown [id number] 2.16840.1.449219.3.579.2. 1244 1997 Unknown [id number] 2.840.1.885169.3.579.2. 1244 1997 Unknown [id number] 2.840.1.164771.3.579.2. 1244 1997 Unknown [id number] 2.0.1.826239.3.579.2. 1244 1997 Unknown [id number] 2.840.1.296139.3.579.2. 1244 1997 Unknown [id number] 2.840.1.217028.3.579.2. 1244 1997 Unknown [id number] 2.840.1.341461.3.579.2. 1244 1997 Unknown [id number] 2.840.1.292589.3.579.2. 1244 1997 Unknown [id number] 2.840.1.753315.3.579.2. 1244 1997 Unknown [id number] 2.840.1.288219.3.579.2. 1244 1997 Unknown [id number] 2.16840.1.940017.3.579.2. 1244 1997 Unknown [id number] 2.840.1.764641.3.579.2. 1244 1997 Unknown [id number] 2.16.840.1.358904.3.579.2. 1245 1997 Unknown [id number] 2.16.840.1.287409.3.579.2. 1245 1997 Unknown [id number] 2.16.840.1.051630.3.579.2. 1259 1997 Unknown [id number] 2.16.840.1.427325.3.579.2. 9 1997 Unknown [id number] 2.16.840.1.381275.3.579.2. 1259 1997 Unknown [id number] 2.16.840.1.948541.3.579.2. 9 1997 Unknown [id number] 2.16.840.1.943707.3.579.2. 9 1997 Unknown [id number] 2.16.840.1.254572.3.579.2. 9 1997 Unknown [id number] 2.16.840.1.884643.3.579.2. 9 1997 Unknown [id number] 2.16.840.1.314045.3.579.2. 9 1997 Unknown [id number] 2.16.840.1.278467.3.579.2. 9 1997 Unknown [id number] 2.16.840.1.418575.3.579.2. 1258 1997 Unknown [id number] 2.16.840.1.537515.3.579.2. 9 1997 Unknown [id number] 2.16.840.1.932448.3.579.2. 1259 1959 Unknown [id number] 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 Date Type Detail Facility Start: 07-24-2021 End: 03-05-2023 Tobacco smoking status Never smoked tobacco (finding) [facility] Tobacco smoking status Never [facility] Start: 01-28-2024 End: 07-29-2024 Sex Assigned At Female Al [facility] Start: 2023 Tobacco use and exposure Smokeless tobacco non-user [facility] Work Phone: Start: 01-28-2024 End: 06-23-2024 Alcoholic beverage intake Ex-drinker (finding) [facility] Work Phone: Start: 01-28-2024 End: 07-29-2024 History of Social function [facility] Work Phone: Start: 2023 Alcohol Comment Occassionally [facility] Work Phone: Start: 1995 Sex assigned at Not on file U [facility] Work Phone: Start: 12-01-2023 End: 10-07-2024 Exposure to SARS-CoV-2 (event) Not sure [facility] Start: 02-23-2024 End: 01-16-2025 Alcoholic beverage intake Current drinker of alcohol (finding) [facility] Work Phone: Start: 03-05-2023 Alcohol Comment Beer 1-2 times per m [facility] Start: 12-18-2023 End: 12-28-2023 Exposure to SARS-CoV-2 (event) Unable to assess [facility] Start: 06-08-2024 [facility] Medical Equipment Procedure Code Equipment Code Equipment Origin al Text Equipment Identifier Dates [id number] Start: 03-01-2024 End: 03-09-2024 Functional Status Date Assessment Result Facility 04-06-2024 Functional Status N/A [facility] 10-02-2023 Functional Status N/A [facility] 08-27-2023 Functional Status N/A [facility] 02-19-2023 Functional Status N/A [facility] Clinical Notes 07-24-2021 to [...] PLAN ICD-10-CM 1. 33 weeks gestation of ([facility]) Z3A.33 POCT urinalysis dipstick manually resulted 2. Third trimester ([facility]) Z34.93 POCT urinalysis dipstick manually resulted 3. Group B streptococcal infection A49.1 4. resulting from in vitro fertilization in first trimester ([facility]) O09.811 Return OB: Patient presents today [...] Layo Courtney DO documented in this encounter [facility] 01-03-2025 History of Present illness Narrative Reason [...] nursing note reviewed. Exam conducted with a christian science practitioner present. Vitals: Estimated body mass index is 39.47 kg/m as calculated from the following: Height as of 09/17/22: 5' 3 . Weight as of this encounter: 222 lb 12.8 oz. BP: 118/74 No LMP recorded. Patient is . ASSESSMENT & PLAN ICD-10-CM 1. Third trimester ([facility]) Z34.93 POCT urinalysis dipstick manually resulted 2. 31 weeks gestation of ([facility]) Z3A.31 POCT urinalysis dipstick manually resulted [...] Layo Courtney DO documented in this encounter [facility] 12-19-2024 History of Present illness Narrative [...] nursing note reviewed. Exam conducted with a christian science practitioner present. Vitals: Estimated body mass index is 38.76 kg/m as calculated from the following: Height as of 09/17/22: 5' 3 . Weight as of this encounter: 218 lb 12.8 oz. BP: 116/70 No LMP recorded. Patient is . ASSESSMENT & PLAN ICD-10-CM 1. 29 weeks gestation of ([facility]) Z3A.29 POCT urinalysis dipstick manually resulted 2. Third trimester ([facility]) Z34.93 POCT urinalysis dipstick manually resulted [...] Layo Courtney DO documented in this encounter [facility] 12-06-2024 History of Present illness Narrative [...] PLAN ICD-10-CM 1. 27 weeks gestation of ([facility]) Z3A.27 POCT urinalysis dipstick manually resulted 2. Second trimester ([facility]) Z34.92 POCT urinalysis dipstick manually resulted [...] Layo Courtney DO documented in this encounter [facility] 11-08-2024 History of Present illness Narrative [...] ASSESSMENT & PLAN ICD-10-CM 1. Second trimester ([facility]) Z34.92 POCT urinalysis dipstick manually resulted 2. 26 weeks gestation of ([facility]) Z3A.26 POCT urinalysis dipstick manually resulted [...] Layo Courtney DO documented in this encounter [facility] 10-17-2024 History of Present illness Narrative [...] nursing note reviewed. Exam conducted with a christian science practitioner present. Vitals: Estimated body mass index is 35.52 kg/m as calculated from the following: Height as of 09/17/22: 5' 3 . Weight as of this encounter: 200 lb 8 oz. BP: 126/82 No LMP recorded. Patient is . ASSESSMENT & PLAN ICD-10-CM 1. Second trimester ([facility]) Z34.92 POCT urinalysis dipstick manually resulted 2. 20 weeks gestation of ([facility]) Z3A.20 Return OB: Patient presents today [...] Layo Courtney DO documented in this encounter [facility] 10-11-2024 History of Present illness Narrative [...] Layo Courtney DO documented in this encounter [facility] 09-06-2024 History of Present illness Narrative [...] of: ORION Spence documented in this encounter [facility] 08-08-2024 History of Present illness Narrative [...] nursing note reviewed. Exam conducted with a christian science practitioner present. Vitals: Estimated body mass index is [...] Layo Courtney DO documented in this encounter [facility] 07-29-2024 History of Present illness Narrative [...] screen, urine; Future Nurse Note: Patient declined [facility] [employer] [facility] one Pt is an IVF [...] or undercooked meat, and stay away from [facility]. Patient has also been advised to [...] Marilia Elder MA documented in this encounter [facility] 07-11-2024 History of Present illness Narrative [...] 07/11/2024 3:54 PM documented in this encounter [facility] Work Phone: 06-13-2024 History of [...] diagnosis: Infertility Post op diagnosis: Same Photo Lab Manager: none Depth: 7 cm Curve: anterior Distance [...] 06/13/24 11:24 AM documented in this encounter [facility] Work Phone: 06-13-2024 Hospital Discharge instructions Tisha Sparks RN - 06/13/2024 10:43 AM EST Images from the original note were not included. [facility] [address] [place] [address] Home Going Instructions after Embryo Transfer: After [...] in : Advil, Motrin, Ibuprofen, Aleve, Excedrin, [place], Sudafed, and Pepto-Bismol. Avoid aspirin unless you [...] Sparks 10:43 AM documented in this encounter [facility] Work Phone: 06-06-2024 History of [...] secretary to schedule at 8:45 slot at [facility] for [facility] and labs. ZOE FRANCIS on 06/06/24 at 1:12 PM. documented in this encounter [facility] Work Phone: 04-06-2024 Hospital Discharge [...] provider. Document Revised: 09/09/2021 Document Reviewed: 09/09/2021 [employer] Patient Education 2023 [employer]. Follow Up Care 03/25/2024 14:07:23 With:Mallory Judd Address: When:Within 6 Month([address]) [facility] 03-22-2024 History of Present illness Narrative Associated Order(s): Egg Retrieval Pre-Procedure Diagnose(s): Encounter for assisted reproductive fertility cycle Post-Procedure Diagnose(s): Encounter for assisted reproductive fertility cycle Patient ID: Sydney Romero is a 28 y.o. female. Egg Retrieval Date/Time: 03/22/2024 9:39 AM Performed by: Juan Chavarria MD Authorized by: Donya Abernathy APRN-CHILLER TECHNICIAN Consent: Consent obtained: Verbal and written Consent [...] Female infertility Post op diagnosis: Same Photo Lab Manager: Dr. Warren IV Fluids: 600 cc EBL: 5 cc UOP: Not recorded Specimen: Oocytes Complications: None Number of Oocytes right ovary: 16 Ovarian access (right): Easy Number of Oocytes left ovary: 9 Ovarian access (left): Easy Endometrial thickness: n/a Needle type: Single Additional notes: documented in this encounter [facility] Work Phone: 03-22-2024 Nurse Note Patient discharged to home in stable condition via wheelchair to RIDE HOME: Partner's car. Accompanied by RN. ABREU at time of discharge. Discharge instructions given and concerns addressed. Gisell Michel RN 03/22/24 11:08 AM [facility] Work Phone: 03-22-2024 Nurse Note Patient discharged to home in stable condition via wheelchair to RIDE HOME: Partner's car. Accompanied by RN. ABREU at time of discharge. Discharge instructions given and concerns addressed. Gisell Michel RN 03/22/24 11:08 AM documented in this encounter [facility] Work Phone: 03-22-2024 Hospital Discharge instructions Gisell Michel RN - 03/22/2024 8:45 AM EST Images from the original note were not included. [facility] [address] [place] [address] Home Going Instructions after Egg Retrieval: Activity: [...] 2 weeks following your oocyte retrieval. Call [phone] to speak with a Physician or Nurse if you have any concerns. Gisell Michel 8:45 AM [facility] [address] [place], [place] IVF LAB EMBRYO UPDATE PROTOCOL The [...] biopsied and frozen. Gisell Michel 8:44 AM [facility] [address] [place] [address] Frozen Embryo Transfer Instructions After your egg retrieval, follow up with your IVF nurse within 3-4 days Thursday-Thursday regarding the plan for your frozen embryo transfer (FET) cycle. Your IVF nurse will order and review with you the medications you will be using for the cycle. You will be sent an email from [employer] to fill out your Frozen Embryo Treatment [...] RN 8:44 AM documented in this encounter [facility] Work Phone: 03-20-2024 History of [...] Arrive 60 minutes prior to procedure at [address]. Patient verbalizes understanding of plan and location of procedure. Patient scheduled to go to [facility] tomorrow for post trigger labs Krissy Yanes 03/20/2024 11:01 AM documented in this encounter [facility] Work Phone: 03-19-2024 History of [...] 03/19/24 11:02 AM documented in this encounter [facility] Work Phone: 03-17-2024 History of [...] 03/17/24 1:04 PM documented in this encounter [facility] Work Phone: 03-15-2024 History of [...] 03/15/24 1:27 PM documented in this encounter [facility] Work Phone: 03-09-2024 History of [...] ; Company: [employer] PGT order scanned into [employer], confirmed by: LORI on Plan to freeze: [...] on 03/09 by delano On site at [facility] Additional details: Allyssa Robles 03/09/2024 7:50 AM TC to pt to confirm today's plan; LM; will send MC message. Allyssa Robles 03/09/24 2:02 PM Pt called back to confirm plan; Pt has all meds and all questions answered. She plans to purchase FET meds before the end of the year (they were ordered back in February) and will call [facility] to have them filled as she has met deductible and REECE needs a PA. Allyssa Robles 03/09/24 2:33 PM documented in this encounter [facility] Work Phone: 02-23-2024 Nurse Note Patient discharged to home in stable condition via wheelchair accompanied by this RN to RIDE HOME: Partner's car. Discharge instructions given and concerns addressed. Patient verbalizes understanding of all information provided and is agreeable. [facility] 02-23-2024 Nurse Note Patient discharged [...] amount of bleeding. documented in this encounter [facility] Work Phone: 02-23-2024 Nurse Note Patient up to bathroom independently, no complaints of pain or dizziness, able to void without issue, reports scant amount of bleeding. [facility] Work Phone: 02-23-2024 History of [...] Female infertility Post op diagnosis: Same Photo Lab Manager: none IV Fluids: 500 cc EBL: 5 cc UOP: Not recorded Specimen: Oocytes Complications: None Number of Oocytes right ovary: 17 Ovarian acc ss (right): Easy Number of Oocytes left ovary: 13 Ovarian access (left): Easy Endometrial thickness: n/a Needle type: Single Additional notes: documented in this encounter [facility] Work Phone: 02-23-2024 Hospital Discharge instructions Donya Rosas RN - 02/23/2024 7:23 AM EDT Images from the original note were not included. [address] [place] [address] Home Going Instructions after Egg Retrieval: Activity: [...] 2 weeks following your oocyte retrieval. Call [phone] to speak with a Physician or Nurse if you have any concerns. DONYA ROSAS 7:23 AM [facility] [address] [place], [place] IVF LAB EMBRYO UPDATE PROTOCOL The [...] and frozen. DONYA Zamora JANNETHMARK 7:23 AM [facility] [address] [place], [place] IVF LAB EMBRYO UPDATE PROTOCOL The [...] biopsied and frozen. DONYA ROSAS 7:23 AM [facility] [address] [place] [address] Frozen Embryo Transfer Instructions After your egg retrieval, follow up with your IVF nurse within 3-4 days Thursday-Thursday regarding the plan for your frozen embryo transfer (FET) cycle. Your IVF nurse will order and review with you the medications you will be using for the cycle. You will be sent an email from [employer] to fill out your Frozen Embryo Treatment [...] RN 7:32 AM documented in this encounter [facility] Work Phone: 02-21-2024 History of [...] 02/21/2024 9:09 AM documented in this encounter [facility] Work Phone: 02-20-2024 History of [...] Beth Judge RN documented in this encounter [facility] Work Phone: 02-18-2024 History of [...] Beth Judge RN documented in this encounter [facility] Work Phone: 02-16-2024 History of [...] Will look into getting insulin syringes from [facility]. Team will contact patient later today with results and plan. Krissy Yanes 02/16/2024 7:27 AM LM with patient with plan to start Cetrotide today, drop FSH to 225 units and continue Menopur 75 units. Patient is already scheduled for 02/17 for repeat follicle scan and e2. Krissy Yanes 02/16/24 1:34 PM documented in this encounter [facility] Work Phone: 02-09-2024 History of [...] Yes; PGT-M Test Ready: No /A; Company: [employer] PGT order scanned into [employer], confirmed by: LORI on 02/09/2024 Plan to freeze: embryos [employer] forms/out waiver complete: Yes Does patient have medications onhand? Yes Pharmacy: [facility] Boarding pass signed off: Yes LORETTA on [...] 02/09/24 1:16 PM documented in this encounter [facility] Work Phone: 01-28-2024 Nurse Note Patient discharged to home in stable condition via wheelchair to RIDE HOME: Partner's car. Discharge instructions given and concerns addressed. [facility] Work Phone: 01-28-2024 Nurse Note Patient discharged to home in stable condition via wheelchair to RIDE HOME: Partner's car. Discharge instructions given and concerns addressed. documented in this encounter [facility] Work Phone: 01-28-2024 History of [...] no immediate complications documented in this encounter [facility] Work Phone: 01-28-2024 Hospital Discharge instructions Ira Lopez RN - 01/28/2024 8:20 AM EDT Images from the original note were not included. [facility] [address] [place] [address] Home Going Instructions after Polypectomy: Activity: We [...] Lopez 8:20 AM documented in this encounter [facility] Work Phone: 01-14-2024 History of [...] nursing note reviewed. Exam conducted with a christian science practitioner present. Vitals: Estimated body mass index is [...] of: ORION Spence documented in this encounter [facility] 12-28-2023 History of Present illness Narrative [...] EVALUATION / TREATMENT Saw K[facility] physician in [facility] Dr. Vergara Was told needed IVF, oligospermia Hysterosalpingogram: 2023, bilateral tubal patency Saline Infused Sonography: 07/2023, normal uterine cavity small uterine polyp noted (not removed as of yet) [employer] Pelvic Ultrasound: 07/2023 [facility] 2.01 Relationship Status: x 2 years OB Hx G0 OB History 0 Para 0 Term 0 0 AB 0 Living 0 SAB 0 IAB 0 Ectopic 0 Multiple 0 Live Births 0 [employer] HISTORY History of STD or PID: No [...] rape: No PARTNER HISTORY Partner: Name: Zane oRmero : 05/16/98 Occupation: Prior fertility history: none [...] 12/28/2023 10:39 AM documented in this encounter [facility] Work Phone: 2023 History of Present illness Narrative Visit Type: In Person NEW FERTILITY PATIENT VISIT Referred by: insurance referral Accompanied today by: spouse Sydney Romero is a 27 y.o. female who presents with Infertility TTC x 2 years PRIOR EVALUATION / TREATMENT Saw KELSY physician in [facility] Dr. Vergara Was told needed IVF, oligospermia Hysterosalpingogram: 2023, bilateral tubal patency Saline Infused Sonography: 07/2023, normal uterine cavity small uterine polyp noted (not removed as of yet) [employer] Pelvic Ultrasound: 07/2023 AMH 2.01 Prior Labs [...] Ectopic 0 Multiple 0 Live Births 0 [employer] HISTORY History of STD or PID: No [...] mg daily Recommend Consult with Dr. Meyer [phone] Recommend repeat SA with 48-72 hours abstinence [...] 2023 8:52 AM documented in this encounter [facility] Work Phone: 2023 Instructions SMITH Mina - 2023 8:45 AM EDT Recommend Male Vitamins Discussed as follows: Co-Q10 200 mg daily L-Carnitine 200-500 mg daily Vitamin C 500 mg daily Recommend Consult with Dr. Meyer [phone] Recommend repeat SA with 48-72 hours abstinence Recommend Female Vitamins: vitamin Vitamin D (total of 2,000 international units daily) CoQ10 600 mg daily documented in this encounter [facility] Work Phone: 10-02-2023 Hospital Discharge [...] food choices, such as grocery stores and [employer]. What are the signs or symptoms? [...] and how much exercise you get. Take fhxo-vpl-wimywmj and prescription medicines only as told by [...] provider. Document Revised: 11/26/2021 Document Reviewed: 11/26/2021 [employer] Patient Education 2022 [employer]. 10/02/2023 12:54:15 BMI for Adults BMI for [...] numbers. This can be done either in [place] ([place].S[place] or metric measurements. Note that charts and online BMI calculators are available to help you find your BMI quickly and easily without having to do these calculations yourself. To calculate your BMI in [place] ([place] measurements: 1.Measure your weight in pounds [...] Centers for Disease Control and Prevention: www.cdc.gov Indian Heart Association: www.heart.org National Heart, Lung, and Blood Lingle: www.nhlbi.nih.gov Summary Body mass index (BMI) is a number that is calculated from a person's weight and height. BMI may help estimate how much of a person's weight is composed of fat. BMI can help identify those who may be at higher risk for certain medical problems. BMI can be measured using [place]an measurements or metric measurements. BMI charts are used to identify whether you are underweight, normal weight, overweight, or obese. This information is not intended to replace advice given to you by your health care provider. Make sure you discuss any questions you have with your health care provider. Document Revised: 01/11/2020 Document Reviewed: 11/18/2019 [employer] Patient Education 2022 [employer]. 10/02/2023 12:54:13 Migraine Headache Migraine Headache A [...] Follow these instructions at home: Medicines Take zvqp-vfb-rytxmnq and prescription medicines only as told by your health care provider. Ask your health care provider if the medicine prescribed to you: ?Requires you to avoid driving or using heavy machinery. ?Can cause constipation. You may need to take these actions to prevent or treat constipation: ?Drink enough fluid to keep your urine pale yellow. ?Take hwyq-zjn-ecpilff or prescription medicines. ?Eat foods that are [...] provider. Document Revised: 08/12/2019 Document Reviewed: 06/02/2019 Arc[employer] Patient Education 2022 [employer] 10/02/2023 12:54:11 Form - Headache Record [...] these instructions at home: Take or apply gyqn-ncs-mgiwlxv and prescription medicines only as told by your health care provider. Use creams or ointments to moisturize your skin. Do not use lotions. Learn what triggers or irritates your symptoms so you can avoid these things. Treat symptom flare-ups quickly. Do not scratch your skin. This can make your rash worse. Keep all follow-up visits. This is important. Where to find more information Indian Academy of Dermatology: aad.org National Eczema Association: [...] provider. Document Revised: 01/28/2021 Document Reviewed: 01/28/2021 [employer] Patient Education 2022 [employer]. 10/02/2023 12:54:06 BMI for Adults BMI for [...] numbers. This can be done either in [place] ([place] or metric measurements. Note that charts and online BMI calculators are available to help you find your BMI quickly and easily without having to do these calculations yourself. To calculate your BMI in [place] ([place].S.) measurements: 1.Measure your weight in pounds [...] Centers for Disease Control and Prevention: www.cdc.gov Indian Heart Association: www.heart.org National Heart, Lung, and Blood Lingle: www.nhlbi.nih.gov Summary Body mass index (BMI) is a number that is calculated from a person's weight and height. BMI may help estimate how much of a person's weight is composed of fat. BMI can help identify those who may be at higher risk for certain medical problems. BMI can be measured using [place]an measurements or metric measurements. BMI charts are used to identify whether you are underweight, normal weight, overweight, or obese. This information is not intended to replace advice given to you by your health care provider. Make sure you discuss any questions you have with your health care provider. Document Revised: 01/11/2020 Document Reviewed: 11/18/2019 [employer] Patient Education 2022 [employer]. Follow Up Care 09/22/2023 13:18:17 With:Princess Dumont [facility], [facility] Address: [address], [address] [address]- Business (1) When:07/08/2023 Comments:for f/u [facility] 08-27-2023 Hospital Discharge instructions [...] 1.Identify the foods that contain carbohydrates: Rice. [place]. Milk. Strawberries. 2.Calculate how many servings you [...] and snacks. Where to find more information Indian Diabetes Association: diabetes.org Centers for Disease Control [...] provider. Document Revised: 11/21/2020 Document Reviewed: 11/21/2020 [employer] Patient Education 2022 [employer] 08/27/2023 19:11:56 Calorie Counting for Weight [...] provider. Document Revised: 05/31/2020 Document Reviewed: 05/31/2020 [employer] Patient Education 2022 [employer]. 08/27/2023 19:11:54 Exercising to Lose Weight Exercising [...] health care provider or diet and nutrition therapist (dietitian). This may include: ?Eating fewer calories. [...] provider. Document Revised: 06/16/2021 Document Reviewed: 06/16/2021 [employer] Patient Education 2022 [employer]. 08/27/2023 19:11:53 BMI for Adults BMI for [...] numbers. This can be done either in [place] ([place] or metric measurements. Note that charts and online BMI calculators are available to help you find your BMI quickly and easily without having to do these calculations yourself. To calculate your BMI in [place]an (U.S[place] measurements: 1.Measure your weight in pounds [...] Centers for Disease Control and Prevention: www.cdc.gov Indian Heart Association: www.heart.org National Heart, Lung, and Blood Lingle: www.nhlbi.nih.gov Summary Body mass index (BMI) is a number that is calculated from a person's weight and height. BMI may help estimate how much of a person's weight is composed of fat. BMI can help identify those who may be at higher risk for certain medical problems. BMI can be measured using [place]an measurements or metric measurements. BMI charts are used to identify whether you are underweight, normal weight, overweight, or obese. This information is not intended to replace advice given to you by your health care provider. Make sure you discuss any questions you have with your health care provider. Document Revised: 01/11/2020 Document Reviewed: 11/18/2019 [employer] Patient Education 2022 [employer]. 08/27/2023 19:11:48 Musculoskeletal Pain Musculoskeletal Pain Musculoskeletal [...] mouth or applied to the skin. Take pxgz-nnw-bpycqix and prescription medicines only as told by [...] provider. Document Revised: 08/23/2020 Document Reviewed: 08/01/2020 [employer] Patient Education 2022 [employer]. 08/27/2023 19:05:09 Cervicogenic Headache Cervicogenic Headache In [...] your primary health care provider, a painting supervisor, a neurologist, and a physical therapist. Follow these instructions at home: Take zpzi-vsq-ssxjilh and prescription medicines only as told by [...] your primary health care provider, a painting supervisor, a neurologist, and a physical therapist. This information is not intended to replace advice given to you by your health care provider. Make sure you discuss any questions you have with your health care provider. Document Revised: 10/24/2021 Document Reviewed: 10/24/2021 Arc[employer] Patient Education 2022 [employer] 08/27/2023 19:05:07 Form - Headache Record [...] provider. Document Revised: 09/18/2021 Document Reviewed: 09/18/2021 [employer] Patient Education 2022 [employer]. 08/27/2023 19:05:07 [...] Follow these instructions at home: Medicines Take cvfp-yzy-bsyytue and prescription medicines only as told by [...] for Headache and Migraine Patients (CHAMP): headachemigraine.org Indian Migraine Foundation: americanmigrainefoundation.org National Headache Foundation: headaches.org [...] provider. Document Revised: 06/06/2020 Document Reviewed: 06/06/2020 [employer] Patient Education 2022 [employer]. 08/27/2023 19:05:03 BMI for Adults BMI for [...] numbers. This can be done either in [place]an ([place] or metric measurements. Note that charts and online BMI calculators are available to help you find your BMI quickly and easily without having to do these calculations yourself. To calculate your BMI in [place]an ([place].) measurements: 1.Measure your weight in pounds [...] Centers for Disease Control and Prevention: www.cdc.gov Indian Heart Association: www.heart.org National Heart, Lung, and Blood Lingle: www.nhlbi.nih.gov Summary Body mass index (BMI) is a number that is calculated from a person's weight and height. BMI may help estimate how much of a person's weight is composed of fat. BMI can help identify those who may be at higher risk for certain medical problems. BMI can be measured using [place]an measurements or metric measurements. BMI charts are used to identify whether you are underweight, normal weight, overweight, or obese. This information is not intended to replace advice given to you by your health care provider. Make sure you discuss any questions you have with your health care provider. Document Revised: 01/11/2020 Document Reviewed: 11/18/2019 [employer] Patient Education 2022 [employer]. 08/27/2023 19:05:01 Health Maintenance, Female Health Maintenance, [...] provider. Document Revised: 09/09/2021 Document Reviewed: 09/09/2021 ArcMail Patient Education 2022 [employer]. Follow Up Care 08/17/2023 08:42:02 With:Princess Dumont FAM, [facility] Address: [address], [facility] [address] [address]- When:Within 6 Week(s) Comments:weight loss and headaches [facility] 02-19-2023 Evaluation + Plan note Future Scheduled TestsU Protein/Creat Ratio 02/19/23HgbA1c 02/19/23Microalbumin Level Urine 02/19/23TSH With T4fr Reflex 02/19/23Vitamin D 25 Hydroxy 02/19/23CBC w/ Auto Diff 02/19/23Comprehensive Metabolic Panel 02/19/23Lipid Panel 02/19/23XR Spine Cervical 4 or 5 Views 02/19/23 [facility] 02-19-2023 Hospital Discharge instructions [...] your primary health care provider, a painting supervisor, a neurologist, and a physical therapist. Follow these instructions at home: Take zpel-myc-etusrbi and prescription medicines only as told by [...] your primary health care provider, a painting supervisor, a neurologist, and a physical therapist. This information is not intended to replace advice given to you by your health care provider. Make sure you discuss any questions you have with your health care provider. Document Revised: 10/24/2021 Document Reviewed: 10/24/2021 ArcMail Patient Education 2022 [employer]. 02/19/2023 08:34:09 Migraine Headache Migraine Headache A [...] Follow these instructions at home: Medicines Take mzmk-grn-gbzbuse and prescription medicines only as told by your health care provider. Ask your health care provider if the medicine prescribed to you: ?Requires you to avoid driving or using heavy machinery. ?Can cause constipation. You may need to take these actions to prevent or treat constipation: ?Drink enough fluid to keep your urine pale yellow. ?Take zduu-avt-gjfekqx or prescription medicines. ?Eat foods that are [...] provider. Document Revised: 09/18/2021 Document Reviewed: 09/18/2021 ArcMail Patient Education 2022 [employer] 02/19/2023 01:02:45 General Headache Without Cause [...] help with your condition: Managing pain Take zbmg-wrb-tjuarmo and prescription medicines only as told by [...] provider. Document Revised: 09/18/2021 Document Reviewed: 09/18/2021 ArcMail Patient Education 2022 [employer]. 02/19/2023 01:02:42 Form - Headache Record Form [...] your primary health care provider, a painting supervisor, a neurologist, and a physical therapist. Follow these instructions at home: Take whtz-atp-pdsymxm and prescription medicines only as told by [...] your primary health care provider, a painting supervisor, a neurologist, and a physical therapist. This information is not intended to replace advice given to you by your health care provider. Make sure you discuss any questions you have with your health care provider. Document Revised: 10/24/2021 Document Reviewed: 10/24/2021 ArcMail Patient Education 2022 [employer]. 02/19/2023 01:02:35 Chronic Migraine Headache Chronic Migraine [...] Follow these instructions at home: Medicines Take kyig-wgx-mzxkbzj and prescription medicines only as told by [...] for Headache and Migraine Patients (CHAMP): headachemigraine.org Indian Migraine Foundation: americanmigrainefoundation.org National Headache Foundation: headaches.org [...] Document Reviewed: 06/06/2020 Elsevier Patient Education 2022 [employer]. Follow Up Care 02/17/2023 08:10:14 With:Princess Dumont FAM, [facility] Address: [address] [employer], [employer] [address] [place] [phone]- When:Within 1 Month(s) Comments:headaches. neck pain With:Princess Dumont FAM, [facility] Address: [address] [employer], [employer] [address] [place] [phone]- When:Within 1 Year(s) Comments:annual wellness, anxiety/ depression [facility] 07-24-2021 Hospital Discharge instructions [...] height. This can be done either in [place]an ([place].S.) or metric measurements. Note that charts are available to help you find your BMI quickly and easily without having to do these calculations yourself. To calculate your BMI in [place]an ([place].) measurements, your health care provider will: [...] medical problems. BMI can be measured using [place]an measurements or metric measurements. To interpret your [...] 12/30/2004 Document Revised: 04/02/2018 Document Reviewed: 03/03/2018 ArcMail Patient Education 2020 [employer]. 07/24/2021 17:16:58 Health Maintenance, Female Health Maintenance, [...] 11/03/2011 Document Revised: 04/13/2019 Document Reviewed: 04/13/2019 ArcMail Patient Education 2020 [employer]. Follow Up Care 06/26/2021 18:00:45 With:Leigh Ann Covington CNP Address: When: only if needed [facility] Evaluation + Plan note Future Appointments Appointment Date:10/03/2021 01:00:00 PM Scheduled Provider:Naya ABDI Location:[facility] Appointment Type:ILENE DAVID [facility] Evaluation + Plan note Future Appointments Appointment Date:03/25/2023 07:00:00 AM Scheduled Provider:Princess Dumont Location:[facility] Appointment Type: Open Future Scheduled TestsU Protein/Creat Ratio 02/19/23HgbA1c 02/19/23Microalbumin Level Urine 02/19/23TSH With T4fr Reflex 02/19/23Vitamin D 25 Hydroxy 02/19/23CBC w/ Auto Diff 02/19/23Comprehensive Metabolic Panel 02/19/23Lipid Panel 02/19/23XR Spine Cervical 4 or 5 Views 02/19/23 [facility] Evaluation + Plan note Future Appointments Appointment Date:10/21/2023 07:20:00 AM Scheduled Provider:Princess Dumont Location:[facility] Appointment Type: Open Future Scheduled TestsTSH With T4fr Reflex 02/19/23Vitamin D 25 Hydroxy 02/19/23CBC w/ Auto Diff 02/19/23Comprehensive Metabolic Panel 02/19/23Lipid Panel 02/19/23XR Spine Cervical 4 or 5 Views 02/19/23 [facility] Evaluation + Plan note Future Appointments Appointment Date:10/05/2024 07:00:00 AM Scheduled Provider:Mallory Judd Location:[facility] Appointment Type: Open [facility] Evaluation note Diagnosis Endometrial polyp Polyp of corpus uteri documented in this encounter [facility] Work Phone: Evaluation note* Diagnosis Pre-procedure lab exam Pre-procedural laboratory examination Female infertility Female infertility of unspecified origin documented in this encounter [facility] Work Phone: Evaluation note* Diagnosis Female infertility Female infertility of unspecified origin documented in this encounter [facility] Work Phone: Evaluation note* Diagnosis Female infertility Female infertility of unspecified origin documented in this encounter [facility] Work Phone: Evaluation note* Diagnosis Encounter for assisted reproductive fertility cycle Encounter for assisted reproductive fertility procedure cycle documented in this encounter [facility] Work Phone: [phone] note* Diagnosis Female infertility Female infertility of unspecified origin Pre-procedure lab exam Pre-procedural laboratory examination documented in this encounter [facility] Work Phone: [phone] note* Diagnosis Female infertility Female infertility of unspecified origin documented in this encounter [facility] Work Phone: [phone] note* Diagnosis Female infertility Female infertility of unspecified origin documented in this encounter [facility] Work Phone: [phone] note* Diagnosis Female infertility Female infertility of unspecified origin documented in this encounter [facility] Work Phone: [phone] note* Diagnosis Encounter for assisted reproductive fertility cycle Encounter for assisted reproductive fertility procedure cycle documented in this encounter [facility] Work Phone: [phone] note* Diagnosis Encounter for assisted reproductive fertility cycle Encounter for assisted reproductive fertility procedure cycle documented in this encounter [facility] Work Phone: [phone] note* Diagnosis Well woman exam with routine gynecological exam Routine gynecological examination documented in this encounter [facility] HealthcareEvaluation note* Diagnosis Encounter for screening for other viral diseases- Primary Encounter for Rh blood typing Encounter for blood typing Screening for STDs (sexually transmitted diseases) Screening examination for venereal disease Genetic screening Other genetic screening Fertility testing Female infertility associated with male factors Female infertility of other specified origin documented in this encounter [facility] Work Phone: [phone] note* Diagnosis Fertility testing [Z31.41]- Primary Fertility testing 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 [Z31.81, N97.8] documented in this encounter [facility] Work Phone: [phone] note* Diagnosis Endometrial polyp Polyp of corpus uteri documented in this encounter [facility] Work Phone: [phone] note* Diagnosis Female infertility Female infertility of unspecified origin documented in this encounter [facility] Work Phone: [phone] note* Diagnosis Encounter for assisted reproductive fertility cycle Encounter for assisted reproductive fertility procedure cycle documented in this encounter [facility] Work Phone: Evaluation note* Diagnosis Encounter for assisted reproductive fertility cycle Encounter for assisted reproductive fertility procedure cycle Encounter for test, result unknown documented in this encounter [facility] Work Phone: Evaluation note* Diagnosis Encounter to determine viability of , single or unspecified fetus documented in this encounter [facility] Work Phone: Evaluation note* Diagnosis [...] note* Diagnosis (HHS-HCC) documented in this encounter [facility] Work Phone: Evaluation note* Diagnosis [...] HealthcareEvaluation note* Diagnosis 33 weeks gestation of ([facility]) Third trimester ([facility]) state, incidental Group B streptococcal infection Streptococcus infection in conditions classified elsewhere and of unspecified site, group B resulting from in vitro fertilization in first trimester ([facility]) documented in this encounter [facility] Narrative No data available for this section [facility] Hospital Discharge instructions No data available for this section [facility] Progress note No data available for this section [facility] Reason for referral (narrative)* Consultation (Routine) - Authorized Specialty Diagnoses / Procedures Referred By Alejandro hyatt Referred To Contact Genetics Diagnoses Genetic screening Trish Thorpe APRN-CHILLER TECHNICIAN [address] [place] [address] Referral ID Status Reason Start Date Expiration Date Visits Requested Visits Authorized [id number] Authorized Specialty Services Required 2023 12/10/2024 1 1 [facility] Work Phone: Rehkef for visit Narrative* Imaging (Routine) - Authorized Specialty Diagnoses / Procedures Referred By Alejandro hyatt Referred To Contact Radiology Diagnoses Female infertility Procedures KELSY US Pelvis Limited Follicles - Follicle Studies Performed America Chavez RADIO SCRIPT WRITER-CHILLER TECHNICIAN [address] [place] [address] Phone: tel: fax: Referral ID Status Reason Start Date Expiration Date Visits Requested Visits Authorized [id number] Authorized Perform Procedure 02/02/2024 02/01/2025 8 8 [facility] Work Phone: Reuwku for visit Narrative* Imaging (Routine) - Pending Review Specialty Diagnoses / Procedures Referred By Alejandro hyatt Referred To Contact Radiology Diagnoses Female infertility Procedures KELSY US Pelvis Limited Follicles - Follicle Studies Performed America Chavez RADIO SCRIPT WRITER-CHILLER TECHNICIAN [address] [place] [address] Phone: tel: fax: Referral ID Status Reason Start Date Expiration Date Visits Requested Visits Authorized [id number] Pending Review Perform Procedure 02/02/2024 02/01/2025 8 8 [facility] Work Phone: Reason for visit Narrative* Procedure (Routine) - Authorized Specialty Diagnoses / Procedures Referred By Contac t Referred To Contact Reproductive Endocrinology and Infertility Diagnoses Encounter for assisted reproductive fertility cycle Procedures Egg Retrieval ME FOLLICLE PUNCTURE OOCYTE RETRIEVAL ANY METHOD CHG US GUIDANCE ASPIRATION OVA IMG S&I CHG OOCYTE ID FROM FOLLICULAR FLU CHG BX OOCYTE POLR BDY/AMBER BLST MICROTQ <= 5 AMBER CHG BX OOCYTE MICROTQ >5 AMBER CHG UNLISTED MOLECULAR PATHOLOGY PROCEDURE CHG CYTOGENETICS&MOLEC CYTOGENETICS INTERP&REP Beth Warren MD [address] [place] [address] Phone: tel: fax: Referral ID Status Reason Start Date Expiration Date V isits Requested Visits Authorized [id number] Authorized 01/27/2024 01/26/2025 1 1 [facility] Work Phone: Reyefq for visit Narrative* Imaging (Routine) - Authorized Specialty Diagnoses / Procedures Referred By Contac t Referred To Contact Radiology Diagnoses Female infertility Procedures KELSY US Pelvis Limited Follicles - Follicle Studies Performed Donya Abernathy, RADIO SCRIPT WRITER-CHILLER TECHNICIAN [address] [facility], Alexia Hay, [facility] [address] [place] [address] Phone: tel: fax: Referral ID Status Reason Start Date Expiration Date Visits Requested Visits Authorized [id number] Authorized Perform Procedure 03/01/2025 8 8 [facility] Work Phone: reason for visit Narrative* Procedure (Routine) - Authorized Specialty Diagnoses / Procedures Referred By Contac t Referred To Contact Reproductive Endocrinology and Infertility Diagnoses Encounter for assisted reproductive fertility cycle Procedures Egg Retrieval ME FOLLICLE PUNCTURE OOCYTE RETRIEVAL ANY METHOD CHG US GUIDANCE ASPIRATION OVA IMG S&I CHG OOCYTE ID FROM FOLLICULAR FLU CHG BX OOCYTE POLR BDY/AMBER BLST MICROTQ <= 5 AMBER CHG BX OOCYTE MICROTQ >5 AMBER CHG UNLISTED MOLECULAR PATHOLOGY PROCEDURE CHG CYTOGENETICS&MOLEC CYTOGENETICS INTERP&REP Donya Abernathy Melly, RADIO SCRIPT WRITER-CHILLER TECHNICIAN [address] [facility], [place] [address] Phone: tel: fax: Referral ID Status Reason Start Date Expiration Date V isits Requested Visits Authorized [id number] Authorized 03/01/2024 03/01/2025 1 0 [facility] Work Phone: Resdwr for visit Narrative* Imaging (Routine) - Authorized Specialty Diagnoses / Procedures Referred By Alejandro hyatt Referred To Contact Radiology Diagnoses Female infertility Procedures KELSY US Endometrial Lining Check Donya Abernathy Melly, RADIO SCRIPT WRITER-CHILLER TECHNICIAN [address] [facility], [place] [address] Phone: tel: fax: Referral ID Status Reason Start Date Expiration Date Visits Requested Visits Authorized [id number] Authorized Perform Procedure 02/23/2025 5 5 [facility] Work Phone: reason for visit Narrative* Procedure (Routine) - Authorized Specialty Diagnoses / Procedures Referred By Alejandro hyatt Referred To Contact Reproductive Endocrinology and Infertility Diagnoses Encounter for assisted reproductive fertility cycle Procedures Embryo Transfer ME EMBRYO TRANSFER INTRAUTERINE CHG ULTRASONIC GUIDANCE INTRAOPERATIVE CHG THAWING CRYOPRESERVED EMBRYO CHG ASSTD EMBRYO HATCHING MICROTQS ANY METH CHG PREPJ EMBRYO TR Juan Chavarria MD [address] [place] [address] Phone: tel: fax: Referral ID Status Reason Start Date Expiration Date V isits Requested Visits Authorized [id number] Authorized 06/10/2024 06/10/2025 1 1 [facility] Work Phone: reason for visit Narrative* Imaging (Routine) - Authorized Specialty Diagnoses / Procedures Referred By Alejandro hyatt Referred To Contact Radiology Diagnoses ([facility]) Procedures US OB detail anatomy Layo Courtney, [address] [facility] [address], [place] [address] Phone: tel: fax: Referral ID Status Reason Start Date Expiration Date Visits Requested Visits Authorized [id number] Authorized Perform Procedure 08/15/2024 08/15/2025 1 1 [facility] Work Phone: Summary Purpose Family [...] polyp Procedures Polypectomy Juan Chavarria MD [address] [facility] [place], [facility] [address] [place] [address] MY[place] Hay [address] [place] [address] Referral ID Status Reason Start Date Expiration Date V isits Requested Visits Authorized [id number] Authorized 01/25/2024 01/24/2025 1 1 Additional Source Comments INFORMATION SOURCE (unrecogn ized section and content) DATE CREATED AUTHOR 08/01/2022 [facility] DATE CREATED AUTHOR AUTHOR'S ORGANIZ ATION 04/04/2024 [facility] DATE CREATED AUTHOR AUTHOR'S ORGANIZ ATION 06/15/2024 [facility] DATE CREATED AUTHOR AUTHOR'S ORGANIZ ATION 07/02/2024 [facility] DATE CREATED AUTHOR AUTHOR'S ORGANIZ ATION 07/14/2024 [facility] DATE CREATED AUTHOR AUTHOR'S ORGANIZ ATION 10/11/2024 [facility] DATE CREATED AUTHOR AUTHOR'S ORGANIZ ATION 01/17/2025 [facility] dical Specialists EPIC Patient Care team informatio n (unrecognized section and content) Yardage Caller Relationship Specialty Start Date End Date Allyssa Robles RN Registered Nurse Reproductive Endocrinology and Infertility 12/25/23 Yardage Caller Relationship Specialty Start Date End Date Allyssa Robles RN Registered Nurse Reproductive Endocrinology and Infertility 12/25/23 Yardage Caller Relationship Specialty Start Date End Date Allyssa Robles RN Registered Nurse Reproductive Endocrinology and Infertility 12/25/23 Yardage Caller Relationship Specialty Start Date End Date Allyssa Robles RN Registered Nurse Reproductive Endocrinology and Infertility 12/25/23 Yardage Caller Relationship Specialty Start Date End Date Allyssa Robles RN Registered Nurse Reproductive Endocrinology and Infertility 12/25/23 Yardage Caller Relationship Specialty Start Date End Date Allyssa Robles RN Registered Nurse Reproductive Endocrinology and Infertility 12/25/23 Yardage Caller Relationship Specialty Start Date End Date Allyssa Robles RN Registered Nurse Reproductive Endocrinology and Infertility 12/25/23 Yardage Caller Relationship Specialty Start Date End Date Allyssa Robles RN Registered Nurse Reproductive Endocrinology and Infertility 12/25/23 Yardage Caller Relationship Specialty Start Date End Date Allyssa Robles RN Registered Nurse Reproductive Endocrinology and Infertility 12/25/23 Yardage Caller Relationship Specialty Start Date End Date Ginger Torres LPN Licensed Practical Nurse 12/10/23 Yardage Caller Relationship Specialty Start Date End Date Allyssa Robles RN Registered Nurse Reproductive Endocrinology and Infertility 12/25/23 Yardage Caller Relationship Specialty Start Date End Date Allyssa Robles RN Registered Nurse Reproductive Endocrinology and Infertility 12/25/23 Yardage Caller Relationship Specialty Start Date End Date Allyssa Robles RN Registered Nurse Reproductive Endocrinology and Infertility 12/25/23 Yardage Caller Relationship Specialty Start Date End Date Allyssa Robles RN Registered Nurse Reproductive Endocrinology and Infertility 12/25/23 Yardage Caller Relationship Specialty Start Date End Date Allyssa Robles RN Registered Nurse Reproductive Endocrinology and Infertility 12/25/23 Reason for Visit (unrecogniz ed section and content) Specialty Diagnoses / Procedures Referred By Alejandro t Referred To Contact Diagnoses Endometrial polyp Procedures Polypectomy Juan Chavarria MD [address] [place], [address] [address] [place] [address] [place] [address] Referral ID Status Reason Start Date Expiration Date V isits Requested Visits Authorized [id number] Authorized 01/25/2024 01/24/2025 1 1 Specialty Diagnoses / Procedures Referred By Alejandro hyatt Referred To Contact Radiology Diagnoses Female infertility Procedures KELSY US Pelvis Limited Follicles - Follicle Studies Performed America Chavez, RADIO SCRIPT WRITER-CHILLER TECHNICIAN [address] [place] [address] Referral ID Status Reason Start Date Expiration Date Visits Requested Visits Authorized [id number] Authorized Perform Procedure 02/02/2024 02/01/2025 8 8 [...] BE BASED ON THE PRIMARY CLINICAL RECORDS. [employer] provides no warranty or guarantee of the accuracy or completeness of information in this document.
[2025-01-24 16:56] VITALS: BP 133/59; PULSE 85
== END 2025-01-24 17:20 | disposition home or self-care (01) ==
LOC: US 16:03 → FBC 16:05
PROVIDERS: Visit Provider Obstetrics & Gynecology
DX: O09.813 Supervision of pregnancy resulting from assisted reproductive technology, third trimester (principal); Z3A.34 34 weeks gestation of pregnancy
CPT/HCPCS: 76818

== ENCOUNTER 2025-01-25 15:47 | Outpatient (OUT) | payer OTHER, SELFPAY ==
--- OUTSIDE RECORDS SUMMARY | 2025-01-16 14:50 | XMS_ITS | Encounter Summary ---
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); Third trimester ([facility]); Group B streptococcal infection; resulting from in vitro fertilization in first trimester ([facility]) 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 Tobacco Use Types Packs/Day Years [...] nursing note reviewed. Exam conducted with a staple laster present. Vitals: Estimated body mass index is 40.21 kg/m?? as calculated from the following: Height as of 09/17/22: 5' 3 . Weight as of this encounter: 227 lb. BP: 110/70 No LMP recorded. Patient is . ASSESSMENT & PLAN ICD-10-CM 1. 33 weeks gestation of ([facility]) Z3A.33 POCT urinalysis dipstick manually resulted 2. Third trimester ([facility]) Z34.93 POCT urinalysis dipstick manually resulted 3. Group B streptococcal infection A49.1 4. resulting from in vitro fertilization in first trimester ([facility]) O09.811 Return OB: Patient presents today for [...] Routine [facility] [address] [place] [phone] Maria M Guerrero NP [address] [place] [address] documented as of this encounter Procedures Procedure Name Priority Date/Time Associated Diagnosis Comments POCT URINALYSIS DIPSTICK Routine 01/16/2025 3:20 PM EDT 33 weeks gestation of ([facility]) Third trimester ([facility]) documented in this encounter Results * (ABNORMAL) [...] Visit Diagnoses Diagnosis 33 weeks gestation of ([facility]) Third trimester ([facility]) state, incidental Group B streptococcal infection Streptococcus infection in conditions classified elsewhere and of unspecified site, group B resulting from in vitro fertilization in first trimester ([facility]) documented in this encounter
--- OUTSIDE RECORDS SUMMARY | 2025-01-25 15:51 | XMS_ITS | Encounter Summary ---
Author Organization [facility] Address [address] [place] [address] Care Team Providers Care Physician Office Specialist Name Role Phone Unavailable Primary Care Provider Unavailabl e Encounter Details Date Type Department Care Team (Late st Contact Info) Description 08/02/2024 Abstract [facility] Yanira ZACARIAS [address] [place] [address] Layo Courtney DO [address] [facility] [place] [address] 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 Tobacco Use Types Packs/Day [...] 1:50 PM EDT Routine NOMKenisha ZACARIAS [address] [place] [address] Maria M Guerrero NP [address] [facility] [place] [address] documented as of this encounter Visit Diagnoses Not on filedocumented in this encounter
--- OUTSIDE RECORDS SUMMARY | 2025-01-25 15:51 | XMS_ITS | Encounter Summary ---
Author Organization [facility] Address [address] [place] [address] Care Team Providers Care Event Set Up Specialist Name Role Phone Unavailable Primary Care Provider Unavailabl e Encounter Details Date Type Department Care Team (Late st Contact Info) Description 11/18/2024 Abstract [facility] Yanira ZACARIAS [address] [place] [address] Layo Courtney DO [address] [facility] [place] [address] 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 Tobacco Use Types Packs/Day [...] 1:50 PM EDT Routine NOMKenisha ZACARIAS [address] [place] [address] Maria M Guerrero NP [address] [facility] [place] [address] documented as of this encounter Visit Diagnoses Not on filedocumented in this encounter
--- OUTSIDE RECORDS SUMMARY | 2025-01-25 15:51 | XMS_ITS | Encounter Summary ---
Author Organization [facility] Address [address] [place] [address] Care Team Providers Care Ballistics Laboratory Gunsmith Name Role Phone Unavailable Primary Care Provider Unavailabl e Encounter Details Date Type Department Care Team (Late st Contact Info) Description 01/10/2025 Clinisync Result Encounter [facility] External Department Unsolicited Rula Courtney DO [address] [place] [address] 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 Tobacco Use Types [...] PM EDT Routine [facility] [address] [facility] [place] [address] Maria M Guerrero, MARGARITO [address] [facility] [place] [address] documented as of this encounter Procedures Procedure Name Priority Date/Time Associated Diagnosis Comments US OB BPP W NON-STRESS 01/10/2025 9:07 PM EDT documented in this encounter Results * US OB BPP W NON-STRESS (01/10/2025 9:07 PM EDT) Anatomical Region Laterality Modality Other 01/10/2025 9:07 PM EDT Narrative 01/10/2025 9:10 [place] [address] Ultrasound Report Signed Patient: OLENA GARCIA MR#: [id number] : 1995 Acct:[id number] Age/Sex: 29 / F ADM Date: 01/10/25 Loc: US Attending Dr: Rula Courtney D.O. Ordering Physician: Rula Courtney D.O. Date of Service: 01/10/25 Procedure(s): US OB BPP w non-stress Accession Number(s): [id number] cc: Rula Courtney D.O.; Physician,Non-Staff [place] [address] Patient Name: OLENA GARCIA MRN: [id number] date: 1995 Sex: F Assigned Patient Location: US Current Patient Location: Accession/Order Number: [id number] Exam Date: 01/10/2025 16:03 Report Date: 01/10/2025 [...] Romero M.D. 01/10/2025 9:07 PM Dictation Location: [place] [address] Electronically authenticated by: [id number] Y Date: 01/10/2025 21:07 Dictated By: Bernabe Romero M.D. Signed By: 01/10/252109 DD/ 06 TD/TT: Crematorium Operator: Procedure Note Radiology, Radiologist, - 01/10/2025 [place] [address] Ultrasound Report Signed Patient: OLENA GARCIA RMR#: [id number] : 1995Acct:[id number] Age/Sex: 29 / FADM Date: 01/10/25 Loc: US Attending Dr: Rula Courtney D.O. Ordering Physician: Rula Courtney D.O. Date of Service: 01/10/25 Procedure(s): US OB BPP w non-stress Accession Number(s): [id number] cc: Rula Courtney D.O.; Physician,Non-Staff [place] [address] Patient Name: OLENA GARCIA MRN: [id number] date: 1995 Sex: F Assigned Patient Location: US Current Patient Location: Accession/Order Number: [id number] Exam Date: 01/10/2025 16:03 Report Date: 01/10/2025 [...] Romero M.D. 01/10/2025 9:07 PM Dictation Location: [place] [address] Electronically authenticated by: [id number] Y Date: 1:07 Dictated By: Bernabe Romero M.D. Signed By:01/10/252109 DD/ 06 TD/TT: Crematorium Operator: us Rula Courtney DO [facility] Final Result documented in this encounter Visit Diagnoses Not on filedocumented in this encounter
--- OUTSIDE RECORDS SUMMARY | 2025-01-25 15:51 | XMS_ITS | Encounter Summary ---
Author Organization [facility] Address [address] [place] [address] Care Team Providers Care Analysis Lead Name Role Phone Unavailable Primary Care Provider Unavailabl e Encounter Details Date Type Department Care Team (Late st Contact Info) Description 03/23/2023 Abstract [facility] Yanira ZACARIAS [address] [facility] [place] [address] Cassy Licea LPN 102 [facility] [place] [address] 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 Tobacco Use Types Packs/Day [...] 1:50 PM EDT Routine NOMKenisha ZACARIAS [address] [facility] [place] [address] Maria M Guerrero, MARGARITO [address] [facility] [place] [address] documented as of this encounter Visit Diagnoses Not on filedocumented in this encounter
--- OUTSIDE RECORDS SUMMARY | 2025-01-25 15:51 | XMS_ITS | Encounter Summary ---
Author Organization [facility] Address [address] [place] [address] Phone Care Team Providers Care Energy Sales Consultant Name Role Phone Allyssa Robles RN Unavailable Unavailable Encounter Details Date Type Department Care Team (Late st Contact Info) Description 06/30/2024 Lab Requisition [facility] [address] [place] [address] Leigh Ann Tuttle MD [address] [facility] [place], [address] [id number] Female infertility, unspecified 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 Tobacco Use [...] AM EST documented as of this encounter Functional Status * Communicable Disease Screening Question Answer Date of Assessment Author Do you have any of the following new or worsening symptoms? None of these 06/30/2024 7:23 AM EST Jos Skinner RN documented as of this encounter Plan of [...] LAB IMMUNOASSAY METHOD 06/30/2024 10:41 AM EST [facility] Comment:Low-level positive H CG results can [...] AM EST 06/30/2024 10:01 AM EST Narrative [facility] - 06/30/2024 10:41 AM EST Total HCG measurement is performed using the Faith [place] Access Immunoassay which detects intact HCG and free beta HCG subunit. This test is not indicated for use as a tumor marker. HCG testing is performed using a different test methodology at [facility] than other [facility]. Direct result comparison should only be made within the same method. us Leigh Ann Tuttle MD LAB BLOOD ORDERABLES Final Re sult [facility] [address] [place] [address] documented in this encounter Visit Diagnoses Diagnosis Female infertility, unspecified documented in this encounter Care Teams Energy Sales Consultant Relationship Specialty Start Date End Date Allyssa Robles, MISHEL Registered Nurse Reproductive Endocrinology and Infertility 12/25/23 documented as of this encounter
--- OUTSIDE RECORDS SUMMARY | 2025-01-25 15:51 | XMS_ITS ---
Author Organization [facility] Address [address] [place] [address] Phone Care Team Providers Care Advertising Agency Manager Name Role Phone Allyssa Robles RN Unavailable Unavailable Fertility Core Status:Enrolled (Active) Start date:02/24/2024 Enrollment date:02/29/2024 Enrollment reason:Identified from a specialty prescription Current support & services provided:Refill Management, Benefits and PA Management Linked medications:lidocaine/prilocaine (Active), progesterone (Active), transparent dressing () Continued Care and Services Coordination
--- OUTSIDE RECORDS SUMMARY | 2025-01-25 15:51 | XMS_ITS | Encounter Summary ---
Author Organization [facility] Address [address] [place] [address] Care Team Providers Care Program Director/Traffic Director Name Role Phone Unavailable Primary Care Provider Unavailabl e Encounter Details Date Type Department Care Team (Late st Contact Info) Description 01/16/2025 Bamboo flowsheet [facility] David ZACARIAS [address] [place] [address] Layo Courtney DO [address] [facility] [place] [address] 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 Tobacco Use Types Packs/Day [...] PM EDT Routine [facility] David ZACARIAS [address] [place] [address] Maria M Guerrero, MARGARITO [address] [facility] [place] [address] documented as of this encounter Visit Diagnoses Not on filedocumented in this encounter
--- OUTSIDE RECORDS SUMMARY | 2025-01-25 15:51 | XMS_ITS | Encounter Summary ---
Author Organization [facility] Address [address] [place] [address] Phone Care Team Providers Care Camp Attendant Name Role Phone Allyssa Robles RN Unavailable Unavailable Encounter Details Date Type Department Care Team (Late st Contact Info) Description 06/13/2024 Lab Requisition [facility] [address] [place] [address] Juan Chavarria MD [address] [facility] [place], [address] [phone] Female infertility, unspecified 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 Tobacco Use [...] new or worsening symptoms? None of these 06/13/2024 10:30 AM EST Sumeet Momin documented as of this encounter Plan of Treatment Not on file documented as of this encounter Procedures Procedure Name Priority Date/Time Associated Diagnosis Comments PROGESTERONE STAT 06/13/2024 11:38 AM EST Female infertility, unspecified documented in this encounter Results * Progesterone (06/13/2024 11:38 AM EST) Progesterone 45.0 ng/mL LAB IMMUNOASSAY METHOD 06/13/2024 2:07 PM EST [facility] Blood Venous blood specimen / Unknown 06/13/2024 11:38 AM EST 06/13/2024 12:46 PM EST Narrative [facility] - 06/13/2024 2:07 PM EST REF VALUES Male <0.2-0.8 Follicular Phase <0.2-1.5 Luteal Phase 7.4-15.4 Post Menopausal <0.2-0.2 1ST Trimester 12.0-84.0 2ND Trimester 10.2-58.8 3RD Trimester 46.5-160 Progesterone is performed using the [employer] Access Immunoassay. Progesterone testing is performed using a different test methodology at [facility] than other [facility]. Direct result comparison should only be made within the same method. us Juan Chavarria MD LAB BLOOD ORDERABLES Final R esult [facility] [address] [place] [address] documented in this encounter Visit Diagnoses Diagnosis Female infertility, unspecified documented in this encounter Care Teams Camp Attendant Relationship Specialty Start Date End Date Allyssa Robles, RN Registered Nurse Reproductive Endocrinology and Infertility 12/25/23 documented as of this encounter
--- OUTSIDE RECORDS SUMMARY | 2025-01-25 15:51 | XMS_ITS | Encounter Summary ---
Author Organization [facility] Address [address] [place] [address] Care Team Providers Care Briar Cutter Name Role Phone Unavailable Primary Care Provider Unavailabl e Encounter Details Date Type Department Care Team (Late st Contact Info) Description 09/21/2024 Abstract [facility] Yanira ZACARIAS [address] [place] [address] Layo Courtney DO [address] [facility] [place] [address] 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 Tobacco Use Types Packs/Day [...] 1:50 PM EDT Routine NOMKenisha ZACARIAS [address] [place] [address] Maria M Guerrero NP [address] [facility] [place] [address] documented as of this encounter Visit Diagnoses Not on filedocumented in this encounter
--- OUTSIDE RECORDS SUMMARY | 2025-01-25 15:51 | XMS_ITS | Encounter Summary ---
Author Organization [facility] Address [address] [place] [address] Care Team Providers Care Apparel Machinery Instructor Name Role Phone Unavailable Primary Care Provider Unavailabl e Encounter Details Date Type Department Care Team (Late st Contact Info) Description 01/22/2024 Abstract [facility] Yanira ZACARIAS [address] [place] [address] Layo Courtney DO [address] [facility] [place] [address] 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 Tobacco Use Types Packs/Day [...] 1:50 PM EDT Routine NOMKenisha ZACARIAS [address] [place] [address] Maria M Guerrero, MARGARITO [address] [facility] [place] [address] documented as of this encounter Visit Diagnoses Not on filedocumented in this encounter
--- OUTSIDE RECORDS SUMMARY | 2025-01-25 15:51 | XMS_ITS | Encounter Summary ---
Author Organization [facility] Address [address] [place] [address] Care Team Providers Care 3Rd Grade Reading Teacher Name Role Phone Unavailable Primary Care Provider Unavailabl e Encounter Details Date Type Department Care Team (Late st Contact Info) Description 01/24/2025 Clinisync Result Encounter [facility] External Department Unsolicited Rula Courtney DO [address] [place] [address] 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 Tobacco Use Types [...] PM EDT Routine [facility] [address] [place] [address] Maria M Guerrero, MARGARITO [address] [place] [address] documented as of this encounter Procedures Procedure Name Priority Date/Time Associated Diagnosis Comments US OB BPP W NON-STRESS 01/24/2025 7:55 PM EDT documented in this encounter Results * US OB BPP W NON-STRESS (01/24/2025 7:55 PM EDT) Anatomical Region Laterality Modality Other 01/24/2025 7:55 PM EDT Narrative 01/24/2025 7:58 PM EDT [place] [id number] Ultrasound Report Signed Patient: OLENA GARCIA MR#: [id number] : 1995 Acct:[id number] Age/Sex: 29 / F ADM Date: 01/24/25 Loc: US Attending Dr: Rula Courtney D.O. Ordering Physician: Rula Courtney D.O. Date of Service: 01/24/25 Procedure(s): US OB BPP w non-stress Accession Number(s): [id number] cc: Rula Courtney D.O.; Physician,Non-Staff Steven [address] [address] Patient Name: OLENA GARCIA MRN: [id number] date: 1995 Sex: F Assigned Patient Location: [facility] Current Patient Location: Accession/Order Number: [id number] Exam Date: 01/24/2025 16:10 Report Date: 01/24/2025 19:55 At the request of: RULA COURTNEY DO Procedure: US OB BPP w non-stress Biophysical profile. Reason for exam: resulting in vitro fertilization COMPARISON: 01/17/2025 TECHNIQUE: Transabdominal imaging of the gravid uterus was obtained. FINDINGS: The instrumentation instructor reports a BPP of 6 out of 8 with 0/2 for gross body movements.. LONNY is normal at 11.9 cm. heart rate 148 bpm. US/US OB BPP w non-stress IMPRESSION: BPP 6out of 8. Correlation with NST is suggested. Impression dictated by: Juan Salinas Jr., D.O. 01/24/2025 7:55 PM Dictation Location: [place] [address] Electronically authenticated by: [id number] Y Date: 01/24/2025 19:55 Dictated By: Juan Salinas M.D. Signed By: 01/24/251957 DD/ 54 TD/TT: Sap Pi Architect: Procedure Note Radiology, Radiologist, MD - 01/24/2025 [place] [address] Ultrasound Report Signed Patient: OLENA GARCIA RMR#: [id number] : 1995Acct:[id number] Age/Sex: 29 / FADM Date: 01/24/25 Loc: US Attending Dr: Rula Courtney D.O. Ordering Physician: Rula Courtney D.O. Date of Service: 01/24/25 Procedure(s): US OB BPP w non-stress Accession Number(s): [id number] cc: Rula Courtney D.O.; Physician,Non-Staff Steven The [place] [address] Patient Name: OLENA GARCIA MRN: [facility]:[id number] date: 1995 Sex: F Assigned Patient Location: [facility] Current Patient Location: Accession/Order Number: [id number] Exam Date: 01/24/2025 16:10 Report Date: 01/24/2025 19:55 At the request of: RULA COURTNEY DO Procedure: US OB BPP w non-stress Biophysical profile. Reason for exam: resulting in vitro fertilization COMPARISON: 01/17/2025 TECHNIQUE: Transabdominal imaging of the gravid uterus was obtained. FINDINGS: The instrumentation instructor reports a BPP of 6 out of 8 with 0/2 for grossbody movements.. LONNY is normal at 11.9 cm. heart rate 148 bpm. US/US OB BPP w non-stress IMPRESSION: BPP 6out of 8. Correlation with NST is suggested. Impression dictated by: Juan Salinas Jr., D.O. 01/24/2025 7:55 PM Dictation Location: [place] Electronically authenticated by: [id number] Y Date: 9:55 Dictated By: Juan Salinas M.D. Signed By:01/24/251957 DD/ 54 TD/TT: Sap Pi Architect: us Rula Courtney DO [facility] Final Result documented in this encounter Visit Diagnoses Not on filedocumented in this encounter
--- OUTSIDE RECORDS SUMMARY | 2025-01-25 15:51 | XMS_ITS | Clinical Summary ---
Author Organization [facility] Address [address] [place] [address] Care Team Providers Care Postal Superintendent Name Role Phone Unavailable Primary Care Provider [...] Encounters Date Type Department Care Team Description 01/24/2025 Clinisync Result Encounter NOMS External Department Unsolicited Rula Courtney DO 01/18/2025 Clinisync Result Encounter [facility]OMS External Department Unsolicited Rula Courtney, 01/16/2025 2:50 PM EDT Routine [facility] ZACARI[facility] [address] [place] [address] Rula Courtney DO 33 weeks gestation of ([facility]); Third trimester ([facility]); Group B streptococcal infection; resulting from in vitro fertilization in first trimester ([facility]) 01/16/2025 Bamboo flowsheet [facility] [address] [place] [address] Rula Courtney, 01/10/2025 Clinisync Result Encounter [facility]OMS External Department Unsolicited Rula Courtney, DO 01/03/2025 10:00 AM EDT Routine [facility] [address] [place] [address] Rula Courtney, DO Third trimester ([facility]); 31 weeks gestation of ([facility]); resulting from in vitro fertilization in third trimester ([facility]) 01/03/2025 Bamboo flowsheet [facility] [address] [place] [address] Rlua Courtney, 12/21/2024 Telephone [facility] OBGYIrene [address] [place] [address] Marilia Elder MA 12/19/2024 10:00 AM EDT Routine [facility] TIPTONGYN [address] [place] [address] Rula Courtney, DO 29 weeks gestation of ([facility]); Third trimester ([facility]); Leukocytes in urine; Other microscopic hematuria 12/19/2024 9:30 AM EDT Ancillary Procedure [facility] TIPTONG[facility] [address] [place] [address] resulting from in vitro fertilization in second trimester ([facility]) 12/06/2024 8:30 AM EDT Routine [facility] [address] [place] [address] Rula Courtney, DO 27 weeks gestation of ([facility]); Second trimester ([facility]); resulting from in vitro fertilization in second trimester ([facility]) 12/06/2024 Clinisync Result Encounter NOMS External Department Unsolicited Rula Courtney, DO 12/06/2024 Bamboo flowsheet [facility] TIPTONGYIrene [address] [place] [address] Rula Courtney, DO 11/28/2024 Telephone [facility] [address] [place] [address] Rula Courtney, DO 11/26/2024 Clinisync Result Encounter NOMS External Department Unsolicited Rula Courtney, DO 11/18/2024 Abstract [facility] [address] [place] [address] Rula Courtney, DO 11/08/2024 2:40 PM EDT Routine [facility] ZACAR[facility] [address] [place] [address] Rula Courtney, DO Second trimester ([facility]); 26 weeks gestation of ([facility]); Diabetes mellitus screening 11/08/2024 Abstract [facility] [address] [place] [place] [address] Emilia Donahue MA from Last 3 Months [...] PM EDT Routine [facility] [address] [place] [address] Maria M Guerrero, SPOOLER RUBBER STRAND [address] [place] [address] Procedures Procedure Name Priority Date/Time Associated Diagnosis Comments US OB BPP W NON-STRESS 01/24/2025 7:55 PM EDT US OB BPP W NON-STRESS 01/18/2025 9:02 AM EDT POCT URINALYSIS DIPSTICK Routine 01/16/2025 3:20 PM EDT 33 weeks gestation of ([facility]) Third trimester ([facility]) US OB BPP W NON-STRESS 01/10/2025 9:07 PM EDT POCT URINALYSIS DIPSTICK Routine 01/03/2025 10:22 AM EDT Third trimester ([facility]) 31 weeks gestation of ([facility]) URINARY TRACT INFECTION (HTRX) Routine 12/19/2024 11:28 AM EDT POCT URINALYSIS DIPSTICK Routine 12/19/2024 10:11 AM EDT 29 weeks gestation of ([facility]) Third trimester ([facility]) US OB FOLLOW UP TRANSABDOMINAL APPROACH Routine 12/19/2024 9:56 AM EDT resulting from in vitro fertilization in second trimester ([facility]) GLUCOSE TOLERANCE 3 HOUR Routine 12/06/2024 11:26 AM EDT POCT URINALYSIS DIPSTICK Routine 12/06/2024 8:40 AM EDT 27 weeks gestation of ([facility]) Second trimester ([facility]) GLUCOSE 1 HOUR Routine 11/26/2024 10:03 AM EDT ALL CBC WITH AUTO DIFF Routine 10:03 AM EDT POCT URINALYSIS DIPSTICK Routine 11/09/2024 11:39 AM EDT Second trimester ([facility]) 26 weeks gestation of ([facility]) from Last 3 Months Results * US OB BPP W NON-STRESS (01/24/2025 7:55 PM EDT) Only the most recent of3 resultswithin the time period is included. Anatomical Region Laterality Modality Other 01/24/2025 7:55 PM EDT Narrative 01/24/2025 7:58 [place] [address] Ultrasound Report Signed Patient: OLENA GARCIA MR#: [id number] : 1995 Acct:[id number] Age/Sex: 29 / F ADM Date: 01/24/25 Loc: US Attending Dr: Rula Courtney D.O. Ordering Physician: Rula Courtney D.O. Date of Service: 01/24/25 Procedure(s): US OB BPP w non-stress Accession Number(s): [id number] cc: Rula Courtney D.O.; Physician,Non-Staff M.DBetito The [address] [address] Patient Name: OLENA GARCIA MRN: [facility]:[id number] date: 1995 Sex: F Assigned Patient Location: [facility] Current Patient Location: Accession/Order Number: [id number] Exam Date: 01/24/2025 16:10 Report Date: 01/24/2025 19:55 At the request of: RULA COURTNEY DO Procedure: US OB BPP w non-stress Biophysical profile. Reason for exam: resulting in vitro fertilization COMPARISON: 01/17/2025 TECHNIQUE: Transabdominal imaging of the gravid uterus was obtained. FINDINGS: The safe deposit box rental clerk reports a BPP of 6 out of 8 with 0/2 for gross body movements.. LONNY is normal at 11.9 cm. heart rate 148 bpm. US/US OB BPP w non-stress IMPRESSION: BPP 6out of 8. Correlation with NST is suggested. Impression dictated by: Juan Salinas Jr., D.O. 01/24/2025 7:55 PM Dictation Location: [place] [address] Electronically authenticated by: [id number] Y Date: 01/24/2025 19:55 Dictated By: Juan Salinas M.D. Signed By: 01/24/251957 DD/ 54 TD/TT: Roll Repairer: Procedure Note Radiology, Radiologist, MD - 01/24/2025 [place] [address] Ultrasound Report Signed Patient: OLENA GARCIA RMR#: [id number] : 1995Acct:[id number] Age/Sex: 29 / FADM Date: 01/24/25 Loc: US Attending Dr: Rula Courtney D.O. Ordering Physician: Rula Courtney D.O. Date of Service: 01/24/25 Procedure(s): US OB BPP w non-stress Accession Number(s): [id number] cc: Rula Courtney D.O.; Physician,Non-Staff Steven The [address] [address] Patient Name: OLENA GARCIA MRN: [id number] date: 1995 Sex: F Assigned Patient Location: [facility] Current Patient Location: Accession/Order Number: [id number] Exam Date: 01/24/2025 16:10 Report Date: 01/24/2025 19:55 At the request of: RULA COURTNEY DO Procedure: US OB BPP w non-stress Biophysical profile. Reason for exam: resulting in vitro fertilization COMPARISON: 01/17/2025 TECHNIQUE: Transabdominal imaging of the gravid uterus was obtained. FINDINGS: The safe deposit box rental clerk reports a BPP of 6 out of 8 with 0/2 for grossbody movements.. LONNY is normal at 11.9 cm. heart rate 148 bpm. US/US OB BPP w non-stress IMPRESSION: BPP 6out of 8. Correlation with NST is suggested. Impression dictated by: Juan Salinas Jr., D.O. 01/24/2025 7:55 PM Dictation Location: [place] [address] Electronically authenticated by: [id number] Y Date: 9:55 Dictated By: Juan Salinas M.D. Signed By:01/24/251957 DD/ 54 TD/TT: Roll Repairer: Rula Courtney DO [facility] Final Result [...] TRACT INFECTION (HTRX) (12/19/2024 11:28 AM EDT) [facility] ACINETOBACTER BAUMANII 0 19.961 - 24.689 ppm 12/20/2024 7:51 AM EDT [facility] ACINETOBACTER BAUMANII Not Detected 19.961 - 24.689 ppm 12/20/2024 7:51 AM EDT [facility] CITROBACTER FREUNDII 0 23.000 - 32.015 ppm 12/20/2024 7:51 AM EDT [facility] CITROBACTER FREUNDII Not Detected 23.000 - 32.015 ppm 12/20/2024 7:51 AM EDT [facility] ENTEROBACTER AEROGENES, CLOACAE 0 23.000 - 32.290 ppm 12/20/2024 7:51 AM EDT [facility] ENTEROBACTER AEROGENES, CLOACAE Not Detected 23.000 - 32.290 ppm 12/20/2024 7:51 AM EDT [facility] ENTEROCOCCUS FAECALIS, FAECIUM 0 26.000 - 33.043 ppm 12/20/2024 7:51 AM EDT [facility] ENTEROCOCCUS FAECALIS, FAECIUM Not Detected 26.000 - 33.043 ppm 12/20/2024 7:51 AM EDT [facility] ESCHERICHIA COLI 0 23.000 - 28.500 ppm 12/20/2024 7:51 AM EDT [facility] ESCHERICHIA COLI Not Detected 23.000 - 28.500 ppm 12/20/2024 7:51 AM EDT [facility] KLEBSIELLA PNEUMONIAE, OXYTOCA 0 23.000 - 31.865 ppm 12/20/2024 7:51 AM EDT [facility] KLEBSIELLA PNEUMONIAE, OXYTOCA Not Detected 23.000 - 31.865 ppm 12/20/2024 7:51 AM EDT [facility] MORGANELLA MORGANII 0 19.961 - 24.689 ppm 12/20/2024 7:51 AM EDT [facility] MORGANELLA MORGANII Not Detected 19.961 - 24.689 ppm 12/20/2024 7:51 AM EDT [facility] PROTEUS MIRABILIS, VULGARIS 0 23.000 - 28.500 ppm 12/20/2024 7:51 AM EDT [facility] PROTEUS MIRABILIS, VULGARIS Not Detected 23.000 - 28.500 ppm 12/20/2024 7:51 AM EDT [facility] PSEUDOMONAS AERUGINOSA 0 23.000 - 31.801 ppm 12/20/2024 7:51 AM EDT [facility] PSEUDOMONAS AERUGINOSA Not Detected 23.000 - 31.801 ppm 12/20/2024 7:51 AM EDT [facility] STAPHYLOCOCCUS AUREUS 0 26.000 - 31.595 ppm 12/20/2024 7:51 AM EDT [facility] STAPHYLOCOCCUS AUREUS Not Detected 26.000 - 31.595 ppm 12/20/2024 7:51 AM EDT [facility] STREPTOCOCCUS AGALACTIAE (GROUP B STREP) 30.017(A) 26.000 - 32.435 ppm 12/20/2024 7:51 AM EDT [facility] STREPTOCOCCUS AGALACTIAE (GROUP B STREP) Detected(A) 26.000 - 32.435 ppm 12/20/2024 7:51 AM EDT [facility] PRESTON ALBICANS, PARAPSILOSIS, TROPICALIS 0 23.000 - 30.347 ppm 12/20/2024 7:51 AM EDT [facility] PRESTON ALBICANS, PARAPSILOSIS, TROPICALIS Not Detected 23.000 - 30.347 ppm 12/20/2024 7:51 AM EDT [facility] PRESTON GLABRATA 0 23.000 - 31.618 ppm 12/20/2024 7:51 AM EDT [facility] PRESTON GLABRATA Not Detected 23.000 - 31.618 ppm 12/20/2024 7:51 AM EDT [facility] PRESTON KRUSEI 0 23.000 - 30.873 ppm 12/20/2024 7:51 AM EDT [facility] PRESTON KRUSEI Not Detected 23.000 - 30.873 ppm 12/20/2024 7:51 AM EDT [facility] SERRATIA MARCESCENS 0 23.000 - 31.581 ppm 12/20/2024 7:51 AM EDT [facility] SERRATIA MARCESCENS Not Detected 23.000 - 31.581 ppm 12/20/2024 7:51 AM EDT [facility] STREPTOCOCCUS PYOGENES (GROUP A STREP) 0 19.961 - 24.689 ppm 12/20/2024 7:51 AM EDT [facility] STREPTOCOCCUS PYOGENES (GROUP A STREP) Not Detected 19.961 - 24.689 ppm 12/20/2024 7:51 AM EDT [facility] STAPHYLOCOCCUS EPIDERMIDIS, HAEMOLYTICUS, LUGDUNENSIS, SAPROPHYTICUS (URINA 0 19.961 - 24.689 ppm 12/20/2024 7:51 AM EDT [facility] STAPHYLOCOCCUS EPIDERMIDIS, HAEMOLYTICUS, LUGDUNENSIS, SAPROPHYTICUS (URINA Not Detected 19.961 - 24.689 ppm 12/20/2024 7:51 AM EDT [facility] STAPHYLOCOCCUS EPIDERMIDIS, HAEMOLYTICUS, LUGDUNENSIS, SAPROPHYTICUS (URINA 0 19.961 - 24.689 ppm 12/20/2024 7:51 AM EDT [facility] STAPHYLOCOCCUS EPIDERMIDIS, HAEMOLYTICUS, LUGDUNENSIS, SAPROPHYTICUS (URINA Not Detected 19.961 - 24.689 ppm 12/20/2024 7:51 AM EDT [facility] Urine 12/19/2024 11:2 8 AM EDT 12/20/2024 1:37 AM EDT us Rula Courtney DO LAB BLOOD ORDERABLES Final Resul t [facility] [address] [address] * US OB follow up transabdominal approach [...] II, MD, PHD at 22-Dec-2024 08:03:51 AM [facility] Procedure Note Toñito Friend MD - [...] signed by TOÑITO FRIEND II, MD, PHD [id number] 08:03:51 AM [facility] us Rula Sherwin DO IMG OB US PROCEDURES Final Resul t * GLUCOSE TOLERANCE 3 HOUR (12/06/2024 11:26 AM EDT) GLUCOSE TOLERANCE 3 HOUR mg/dL [facility] Comment: GLU FAST 90 (<95) Col: 12/06/24 1126 GLU 1HR 143 (<180) Col: 12/06/24 1235 GLU 2HR 132 (<155) Col: 12/06/24 1327 GLU 3HR 81 (<140) Col: 12/06/24 1432 12/06/2024 11:2 6 AM EDT 12/06/2024 11:35 AM EDT Narrative [facility] - 12/06/2024 3:13 PM EDT us Rula Sherwin DO LAB BLOOD ORDERABLES Final Resul t [facility] * (ABNORMAL) GLUCOSE 1 HOUR (11/26/2024 10:03 AM EDT) GLUCOSE 1 HOUR 156(H) <130 mg/dL [facility] 11/26/2024 10:0 3 AM EDT 11/26/2024 10:04 AM EDT Narrative [facility] - 11/26/2024 10:27 AM EDT us Rula Sherwin DO LAB BLOOD ORDERABLES Final Resul t [facility] * (ABNORMAL) ALL CBC WITH AUTO DIFF (11/26/2024 10:03 AM EDT) [facility] WBC 9.2 4.0 - 11.0 10 [...] - 11/26/2024 10:14 AM EDT us Rula Courtney DO [facility] Final Result JAMILA TB from Last 3 Months Insurance [employer]
--- OUTSIDE RECORDS SUMMARY | 2025-01-25 15:51 | XMS_ITS | Encounter Summary ---
Author Organization [facility] Address [address] [place] [address] Phone Care Team Providers Care Physician Scientist Name Role Phone Allyssa Robles RN Unavailable Unavailable Encounter Details Date Type Department Care Team (Late st Contact Info) Description 06/23/2024 Lab Requisition [facility] [address] [place] [id number] America Chavez, DRILLER PORTABLE-RECONDITIONER [address] [place] [address] Female infertility, unspecified 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 Tobacco Use [...] Hold for add-ons. 06/23/2024 10:02 AM EST [facility] Comment:Auto resulted. Blood Venous blood specimen / Unknown 06/23/2024 7:53 AM EST 06/23/2024 8:35 AM EST America Chavez [facility]OD ORDERABLES Final Result Performing Organization Address City/[facility]/ZIP Co de Phone Number [facility] [address] [place], [place] [id number] * Phleb Charge - Venipuncture (Lab Use Only) (06/23/2024 7:53 AM EST) Blood Venous blood specimen / Unknown 06/23/2024 7:53 AM EST 06/23/2024 8:35 AM EST America Chavez [facility] LAB BLOOD ORDERABLES Final Result Performing Organization Address City/[facility]/ZIP Co de Phone Number [facility] [address] [place] [id number] * Estradiol (06/23/2024 7:53 AM EST) Estradiol 378 pg/mL LAB IMMUNOASSAY METHOD 06/23/2024 9:14 AM EST [facility] Blood Venous blood specimen / Unknown 06/23/2024 7:53 AM EST 06/23/2024 8:35 AM EST Narrative [facility] - 06/23/2024 9:14 AM EST REF VALUES FOLLICULAR PHASE 20-144 MID CYCLE 64-357 LUTEAL PHASE 56-214 POSTMENOPAUSE < 32 PREPUBERTY < 20 FEMALE 10-18Y 8-110 MALE 10-18Y < 20 ADULT MALE < 40 Estradiol measurement is performed using the [employer] Access Estradiol Immunoassay. Estradiol testing is performed using a different test methodology at [facility] than other [facility]. Direct result comparison should only be made within the same method. Americaroxy Chavez DRILLER [email or web address] LAB BLOOD ORDERABLES Final Result Performing Organization Address City/[facility]/ZIP Co de Phone Number [facility] [address] [place] [address] * Progesterone (06/23/2024 7:53 AM EST) [facility] Progesterone 42.6 ng/mL LAB IMMUNOASSAY METHOD 06/23/2024 10:10 AM EST [facility] Blood Venous blood specimen / Unknown 06/23/2024 7:53 AM EST 06/23/2024 8:35 AM EST Narrative [facility] - 06/23/2024 10:10 AM EST REF VALUES Male <0.2-0.8 Follicular Phase <0.2-1.5 Luteal Phase 7.4-15.4 Post Menopausal <0.2-0.2 1ST Trimester 12.0-84.0 2ND Trimester 10.2-58.8 3RD Trimester 46.5-160 Progesterone is performed using the Faith BTIG Access Immunoassay. Progesterone testing is performed using a different test methodology at [facility] than other [facility]. Direct result comparison should only be made within the same method. Americaroxy Chavez DRILLER [email or web address] LAB BLOOD ORDERABLES Final Result Performing Organization Address City/[facility]/ZIP Co de Phone Number [facility] [id number] [place] [phone] documented in this encounter Visit Diagnoses Diagnosis Female infertility, unspecified documented in this encounter Care Teams Physician Scientist Relationship Specialty Start Date End Date Allyssa Robles, RN Registered Nurse Reproductive Endocrinology and Infertility 12/25/23 documented as of this encounter
--- OUTSIDE RECORDS SUMMARY | 2025-01-25 15:51 | XMS_ITS | Encounter Summary ---
Author Organization [facility] Address [address] [place] [address] Phone Care Team Providers Care Tool Room Lathe Operator Name Role Phone Allyssa Robles RN Unavailable Unavailable Encounter Details Date Type Department Care Team (Late st Contact Info) Description 06/06/2024 Lab Requisition [facility] [address] [place] [phone] America Chavez, LEAF TINNER-PROPERTY STAFF ACCOUNTANT [address] [place] [address] Female infertility, unspecified 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 Tobacco Use [...] new or worsening symptoms? None of these 06/06/2024 6:37 AM EST Jos Skinner RN documented as [...] LAB IMMUNOASSAY METHOD 06/06/2024 11:56 AM EST [facility] Blood Venous blood specimen / Unknown 06/06/2024 7:00 AM EST 06/06/2024 10:58 AM EST Narrative [facility] - 06/06/2024 11:56 AM EST REF VALUES FOLLICULAR PHASE 20-144 MID CYCLE 64-357 LUTEAL PHASE 56-214 POSTMENOPAUSE < 32 PREPUBERTY < 20 FEMALE 10-18Y 8-110 MALE 10-18Y < 20 ADULT MALE < 40 America Chavez LEAF TINNER-PROPERTY STAFF ACCOUNTANT LAB BLOOD ORDERABLES Final Result [facility] [address] [place] [id number] * Progesterone (06/06/2024 7:00 AM EST) Progesterone 0.8 ng/mL LAB IMMUNOASSAY METHOD 06/10/2024 8:43 PM EST [facility] Comment: Blood Venous blood specimen / Unknown 06/06/2024 7:00 AM EST 06/06/2024 10:58 AM EST Narrative [facility] - 06/10/2024 8:43 PM EST REF VALUES Male <0.2-0.8 Follicular Phase <0.2-1.5 Luteal Phase 7.4-15.4 Post Menopausal <0.2-0.2 1ST Trimester 12.0-84.0 2ND Trimester 10.2-58.8 3RD Trimester 46.5-160 Progesterone is performed using the PanTheryx Access Immunoassay. Progesterone testing is performed using a different test methodology at [facility] than other [facility]. Direct result comparison should only be made within the same method. America Chavez LEAF TINNER-PROPERTY STAFF ACCOUNTANT LAB BLOOD ORDERABLES Edite d Result - Final [facility] [address] [place] [id number] documented in this encounter Visit Diagnoses Diagnosis Female infertility, unspecified documented in this encounter Care Teams Tool Room Lathe Operator Relationship Specialty Start Date End Date Allyssa Robles, RN Registered Nurse Reproductive Endocrinology and Infertility 12/25/23 documented as of this encounter
--- OUTSIDE RECORDS SUMMARY | 2025-01-25 15:51 | XMS_ITS | Encounter Summary ---
Author Organization [facility] Address [address] [place] [address] Phone Care Team Providers Care Log Hauler Name Role Phone Allyssa Robles RN Unavailable Unavailable Encounter Details Date Type Department Care Team (Late st Contact Info) Description 06/07/2024 Lab Requisition [facility] [place] [address] [place] [phone] America Chavez, ACCESS REP-MEASUREMENT PSYCHOLOGIST [address] [place] [address] Female infertility, unspecified 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 Tobacco Use [...] LAB IMMUNOASSAY METHOD 06/10/2024 8:33 PM EST [facility] Comment: Blood Venous blood specimen / Unknown 06/07/2024 8:45 AM EST 06/07/2024 10:22 AM EST Narrative [facility] - 06/10/2024 8:33 PM EST REF VALUES Male <0.2-0.8 Follicular Phase <0.2-1.5 Luteal Phase 7.4-15.4 Post Menopausal <0.2-0.2 1ST Trimester 12.0-84.0 2ND Trimester 10.2-58.8 3RD Trimester 46.5-160 Progesterone is performed using the [employer] Access Immunoassay. Progesterone testing is performed using a different test methodology at [facility] than other [facility]. Direct result comparison should only be made within the same method. America Chavez APRNCareLuLuMEASUREMENT PSYCHOLOGIST LAB BLOOD ORDERABLES Edite d Result - Final Performing Organization Address City/State/[facility] Co de Phone Number [facility] [address] [place] [phone] * Estradiol (06/07/2024 8:45 AM EST) Estradiol 2,870 pg/mL LAB IMMUNOASSAY METHOD 06/07/2024 10:43 AM EST [facility] Blood Venous blood specimen / Unknown 06/07/2024 8:45 AM EST 06/07/2024 10:22 AM EST Narrative [facility] - 06/07/2024 10:43 AM EST REF VALUES FOLLICULAR PHASE 20-144 MID CYCLE 64-357 LUTEAL PHASE 56-214 POSTMENOPAUSE < 32 PREPUBERTY < 20 FEMALE 10-18Y 8-110 MALE 10-18Y < 20 ADULT MALE < 40 America Chavez ACCESS REP-MEASUREMENT PSYCHOLOGIST LAB BLOOD ORDERABLES Final Result [facility] [address] [place] [address] documented in this encounter Visit Diagnoses Diagnosis Female infertility, unspecified documented in this encounter Care Teams Log Hauler Relationship Specialty Start Date End Date Allyssa Robles, MISHEL Registered Nurse Reproductive Endocrinology and Infertility 12/25/23 documented as of this encounter
--- OUTSIDE RECORDS SUMMARY | 2025-01-25 15:51 | XMS_ITS | Encounter Summary ---
Author Organization [facility] Address [address] [place] [address] Care Team Providers Care Hand Assembler For Puller Over Name Role Phone Unavailable Primary Care Provider Unavailabl e Encounter Details Date Type Department Care Team (Late st Contact Info) Description 04/13/2023 Clinisync Result Encounter [facility] External Department Unsolicited Rula Courtney DO [address] [facility] [place] [address] 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 Tobacco Use Types [...] [address] [facility] [place] [address] Maria M Guerrero, MARGARITO [address] [facility] [place] [address] documented as of this encounter Procedures Procedure Name Priority Date/Time Associated Diagnosis Comments FL HYSTEROSALPINGOGRAM 10:54 AM EST documented in this encounter Results * FL HYSTEROSALPINGOGRAM (04/13/2023 10:54 AM EST) Anatomical Region Laterality Modality Other 04/13/2023 10:5 4 AM EST Narrative 04/13/2023 10:56 [place] [address] Fluoroscopy Report Signed Patient: OLENA PEREYRA MR#: [id number] : 1995 Acct:[id number] Age/Sex: 27 / F ADM Date: 04/10/23 Loc: LAB Attending Dr: Rula Courtney D.O. Ordering Physician: Rula Courtney D.O. Date of Service: 04/10/23 Procedure(s): FL Hysterosal cath placement Accession Number(s): [id number] cc: Rula Courtney D.O.; Physician,Non-Staff Steven The [place] [id number] Patient Name: OLENA PEREYRA MRN: [id number] date: 1995 Sex: F Assigned Patient Location: LAB Current Patient Location: LAB Accession/Order Number: [id number] Exam Date: 04/10/2023 14:30 Report Date: 04/13/2023 10:54 At the request of: RULA COURTNEY Procedure: FL Hysterosal cath placement EXAM: FL Hysterosal cath placement HISTORY: Infertility TECHNIQUE: FINDINGS: Please see Operative Report. Electronically authenticated by: DARRYN LONDON Date: 04/13/2023 10:54 Dictated By: Darryn London Signed By: 04/13/23 1056 DD/ 1054 TD/TT: Highway Maintenance Crew Worker: Procedure Note Radiology, Radiologist, MD - 04/13/2023 [place] [address] Fluoroscopy Report Signed Patient: OLENA EPREYRA RMR#: [id number] : 1995Acct:[id number] Age/Sex: 27 / FADM Date: 04/10/23 Loc: LAB Attending Dr: Rula Courtney D.O. Ordering Physician: Rula Courtney D.O. Date of Service: 04/10/23 Procedure(s): FL Hysterosal cath placement Accession Number(s): [id number] cc: Rula Courtney D.O.; Physician,Non-Staff Steven The [place] [id number] Patient Name: OLENA PEREYRA MRN: [id number] date: 1995 Sex: F Assigned Patient Location: LAB Current Patient Location: LAB Accession/Order Number: [id number] Exam Date: 04/10/2023 14:30 Report Date: 04/13/2023 10:54 At the request of: RULA COURTNEY Procedure: FL Hysterosal cath placement EXAM: FL Hysterosal cath placement HISTORY: Infertility TECHNIQUE: FINDINGS: Please see Operative Report. Electronically authenticated by: DARRYN LONDON Date: 04/13/2023 10:54 Dictated By: Darryn London Signed By:04/13/23 1056 DD/ 1054 TD/TT: Highway Maintenance Crew Worker: us Rula Courtney DO [facility] Final Result documented in this encounter Visit Diagnoses Not on filedocumented in this encounter
--- OUTSIDE RECORDS SUMMARY | 2025-01-25 15:51 | XMS_ITS | Encounter Summary ---
Author Organization [facility] Address [address] [place] [address] Phone Care Team Providers Care Slab Miller Operator Name Role Phone Allyssa Robles RN Unavailable Unavailable Encounter Details Date Type Department Care Team (Late st Contact Info) Description 06/23/2024 Lab Requisition [facility] [address] [place] [address] Juan Chavarria MD [address] [facility] [place], [address] [phone] Encounter for test, result unknown 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 [...] 11:04 AM EST [facility] Comment:Low-level positive H CG results can [...] AM EST Narrative [facility] - 06/23/2024 11:04 AM EST Total HCG measurement is performed using the Faith [employer] Access Immunoassay which detects intact HCG and free beta HCG subunit. This test is not indicated for use as a tumor marker. HCG testing is performed using a different test methodology at [facility] than other [facility]. Direct result comparison should only be made within the same method. us Juan Chavarria MD LAB BLOOD ORDERABLES Final R esult [facility] [address] [place] [phone] documented in this encounter Visit Diagnoses Diagnosis Encounter for test, result unknown documented in this encounter Care Teams Slab Miller Operator Relationship Specialty Start Date End Date Allyssa Robles, RN Registered Nurse Reproductive Endocrinology and Infertility 12/25/23 documented as of this encounter
--- OUTSIDE RECORDS SUMMARY | 2025-01-25 15:51 | XMS_ITS | Encounter Summary ---
Author Organization [facility] Address [address] [place] [address] Care Team Providers Care Stacker Straightener Name Role Phone Unavailable Primary Care Provider Unavailabl e Encounter Details Date Type Department Care Team (Late st Contact Info) Description 01/21/2024 Orders Only NOMKenisha ZACARIAS [address] [facility] [facility] [place] [address] Marilia Elder MA [address] [place] [address] 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 Tobacco Use Types Packs/Day Years [...] 1:50 PM EDT Routine NOMKenisha ZACARIAS [address] [place] [address] Maria M Guerrero, MARGARITO [address] [facility] [place] [address] documented as of this encounter Procedures [...]
--- OUTSIDE RECORDS SUMMARY | 2025-01-25 15:51 | XMS_ITS | Encounter Summary ---
Author Organization [facility] Address [address] [place] [address] Care Team Providers Care Regulatory Compliance Manager Name Role Phone Unavailable Primary Care Provider Unavailabl e Encounter Details Date Type Department Care Team (Late st Contact Info) Description 11/08/2024 Abstract [facility] Yanira ZACARIAS [address] [place] [address] Emilia Donahue MA 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 Tobacco [...] 1:50 PM EDT Routine NOMKenisha ZACARIAS [address] [place] [place] [address] Maria M Guerrero, MARGARITO [address] [facility] [place] [address] documented as of this encounter Visit Diagnoses Not on filedocumented in this encounter
--- OUTSIDE RECORDS SUMMARY | 2025-01-25 15:51 | XMS_ITS | Encounter Summary ---
Author Organization [facility] Address [address] [place] [address] Care Team Providers Care Tour Driver Name Role Phone Unavailable Primary Care Provider Unavailabl e Encounter Details Date Type Department Care Team (Late st Contact Info) Description 04/10/2023 Clinisync Result Encounter [facility]S External Department Unsolicited Rula Courtney DO [address] [facility] [place] [address] 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 Tobacco Use Types [...] PM EDT Routine [facility] David ZACARIAS [address] [facility] [address] Maria M Guerrero, MARGARITO [address] [facility] [place] [address] documented as of this encounter Procedures Procedure Name Priority Date/Time Associated Diagnosis Comments FL HYSTEROSALPINGOGRAPHY 023 3:10 PM EST documented in this encounter Results * FL HYSTEROSALPINGOGRAPHY (04/10/2023 3:10 PM EST) Anatomical Region Laterality Modality Other 04/10/2023 3:10 PM EST Narrative 04/10/2023 3:13 PM EST The [address] [address] Fluoroscopy Report Signed Patient: OLENA PEREYRA MR#: [id number] : 1995 Acct:[id number] Age/Sex: 27 / F ADM Date: 04/10/23 Loc: LAB Attending Dr: Rula Courtney D.O. Ordering Physician: Rula Courtney D.O. Date of Service: 04/10/23 Procedure(s): FL hysterosalpingography Accession Number(s): [id number] cc: Rula Courtney D.O.; Physician,Non-Staff Steven The [address] [address] Patient Name: OLENA PEREYRA MRN: [id number] date: 1995 Sex: F Assigned Patient Location: LAB Current Patient Location: Accession/Order Number: [id number] Exam Date: 04/10/2023 14:30 Report Date: 04/10/2023 [...] M.D. Signed By: 04/10/231512 DD/ 09 TD/TT: Lumber Tallier: Procedure Note Radiology, Radiologist, MD - 04/10/2023 [place] [address] Fluoroscopy Report Signed Patient: OLENA PEREYRA RMR#: [id number] : 1995Acct:[id number] Age/Sex: 27 / FADM Date: 04/10/23 Loc: LAB Attending Dr: Rula Courtney D.O. Ordering Physician: Rula Courtney D.O. Date of Service: 04/10/23 Procedure(s): FL hysterosalpingography Accession Number(s): [id number] cc: Rula Courtney D.O.; Physician,Non-Staff Steven The [place] [address] Patient Name: OLENA PEREYRA MRN: [id number] date: 1995 Sex: F Assigned Patient Location: LAB Current Patient Location: Accession/Order Number: [id number] Exam Date: 04/10/2023 14:30 Report Date: 04/10/2023 [...] M.D. Signed By:04/10/23 151 DD/ 09 TD/TT: Lumber Tallier: us Rula Courtney DO [facility] Final Result documented in this encounter Visit Diagnoses Not on filedocumented in this encounter
--- OUTSIDE RECORDS SUMMARY | 2025-01-25 15:51 | XMS_ITS | Clinical Summary ---
Author Organization [facility] Address [address] [place] [address] Phone Care Team Providers Care Harbor Pilot Name Role Phone Allyssa Robles RN Unavailable Unavailable Allergies Active Allergy Reactions Criticality Noted Date Comments Latex Rash Low 2023 Nickel Rash Low 2023 Medications [id number]- [id number] 29-1-400 mg combo pack,tablet and cap,DR [...] C Antibody (2023 10:21 AM EDT) Pathologist [facility] Hepatitis C Anitbody Nonreactive Nonreactive LAB IMMUNOASSAY METHOD 2023 7:11 PM EDT [facility] Comment:Results from patient s taking biotin supplements or receiving high-dose biotin therapy should be interpreted with caution due to possible interference with this test. Providers may contact their local laboratory for further information. Blood Venous blood specimen / Unknown Venipuncture / Unknown 2023 10:21 AM EDT 2023 10:21 AM EDT us Trish Sun EMAIL MARKETING ASSISTANT-PAID SEARCH MARKETING STRATEGIST LAB BLOOD ORDERABLES Fin al Result [facility] [id number] [place], [place] [id number] * HIV 1/2 Antigen/Antibody Screen with Reflex to Confirmation (2023 10:21 AM EDT) HIV 1/2 Antigen/Antibo dy Screen with Reflex to Confirmation Nonreactive Nonreactive LAB IMMUNOASSAY METHOD 2023 7:37 PM EDT [facility] Blood Venous blood specimen / Unknown Venipuncture / Unknown 2023 10:21 AM EDT 2023 10:21 AM EDT Narrative [facility] - 2023 7:37 PM EDT HIV Ag/Ab screen is performed using the Siemens [employer] HIV Ag/Ab Combo assay which detects the presence of HIV p24 antigen as well as antibodies to HIV-1 (Group M and O) and HIV-2. No laboratory evidence of HIV infection. If acute HIV infection is suspected, consider testing for HIV RNA by PCR (viral load). Trish Sun EMAIL MARKETING ASSISTANT-PAID SEARCH MARKETING STRATEGIST LAB BLOOD ORDERABLES Fin al Result [facility] [address] [facility] [place][Note 2] [id number] [place] [address] from Last 3 Months or Most Recently Relevant to Health Maintenance Insurance [employer] H[employer] Care Teams Harbor Pilot Relationship Specialty Start Date End Date Allyssa Robles, RN Registered Nurse Reproductive Endocrinology and Infertility 12/25/23
--- OUTSIDE RECORDS SUMMARY | 2025-01-25 15:51 | XMS_ITS | Encounter Summary ---
Author Organization [facility] Address [address] [place] [address] Care Team Providers Care Monitoring Manager Name Role Phone Unavailable Primary Care Provider Unavailabl e Encounter Details Date Type Department Care Team (Late st Contact Info) Description 01/18/2025 Clinisync Result Encounter [facility] External Department Unsolicited Rula Courtney DO [address] [place] [address] 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 Tobacco Use Types [...] PM EDT Routine [facility] [address] [facility] [place] [address] Maria M Guerrero, MARGARITO [address] [facility] [place] [address] documented as of this encounter Procedures Procedure Name Priority Date/Time Associated Diagnosis Comments US OB BPP W NON-STRESS 01/18/2025 9:02 AM EDT documented in this encounter Results * US OB BPP W NON-STRESS (01/18/2025 9:02 AM EDT) Anatomical Region Laterality Modality Other 01/18/2025 9:02 AM EDT Narrative 01/18/2025 9:05 AM EDT [address] [address] Ultrasound Report Signed Patient: OLENA GARCIA MR#: [id number] : 1995 Acct:[id number] Age/Sex: 29 / F ADM Date: 01/17/25 Loc: US Attending Dr: Rula Courtney D.O. Ordering Physician: Rula Courtney D.O. Date of Service: 01/17/25 Procedure(s): US OB BPP w non-stress Accession Number(s): [id number] cc: Rula Courtney D.O.; Physician,Non-Staff Steven [address] [address] Patient Name: OLENA GARCIA MRN: [id number] date: 1995 Sex: F Assigned Patient Location: [facility] Current Patient Location: Accession/Order Number: [id number] Exam Date: 01/17/2025 16:08 Report Date: 01/18/2025 [...] [place] M.D. 01/18/2025 9:02 AM Dictation Location: [place] [address] Electronically authenticated by: [id number] Y Date: 01/18/2025 09:02 Dictated By: Mariela [place] M.D. Signed By: 01/18/25904 DD/ 1 TD/TT: Engineer: Procedure Note Radiology, Radiologist, MD - 01/18/2025 [place] [address] Ultrasound Report Signed Patient: OLENA GARCIA RMR#: [id number] : 1995Acct:[id number] Age/Sex: 29 / FADM Date: 01/17/25 Loc: US Attending Dr: Rula Courtney D.O. Ordering Physician: Rula Courtney D.O. Date of Service: 01/17/25 Procedure(s): US OB BPP w non-stress Accession Number(s): [id number] cc: Rula Courtney D.O.; Physician,Non-Staff Steven The [address] [id number] Patient Name: OLENA GARCIA MRN: [id number] date: 1995 Sex: F Assigned Patient Location: [facility] Current Patient Location: Accession/Order Number: [id number] Exam Date: 01/17/2025 16:08 Report Date: 01/18/2025 09:02 At the request of: RULA COURTNEY DO Procedure: US OB BPP w non-stress BIOPHYSICAL PROFILE: CLINICAL INFORMATION: resulting from in vitro [id number] COMPARISON: 01/10/2025 There is a single live [...] [place] M.D. 01/18/2025 9:02 AM Dictation Location: [place] [address] Electronically authenticated by: [id number] Y Date: 9:02 Dictated By: Mariela [place] M.D. Signed By:01/18/25904 DD/ 1 TD/TT: Engineer: Rula Courtney DO [facility] Final Result documented in this encounter Visit Diagnoses Not on filedocumented in this encounter
--- NOTE | 2025-01-25 15:54 | US_ITS ---
[address] [address] Patient Name: OLENA ROMERO MRN: [id number] date: 1995 Sex: F Assigned Patient Location: [facility] Current Patient Location: [place] Accession/Order Number: [id number] Exam Date: 01/25/2025 16:50 Report Date: 01/25/2025 18:24 At the request of: RULA SMITH DO Procedure: US OB BPP w non-stress Ultrasound biophysical profile INDICATION: Abnormal biophysical profile 01/24/2025 FINDINGS: The hospital manager reports a BPP of 8 out of 8 LONNY is normal at 10.9 cm. heart rate 134. Heterogeneous appearance of the placenta hypoechoic focus measuring 1.3 x 2.8 x 2.0 cm in size. US/US OB BPP w non-stress IMPRESSION: BPP 8 out of 8. Impression dictated by: Bernabe Romero M.D. 01/25/2025 6:24 PM Dictation Location: [place] [address] Electronically authenticated by: [id number] Y Date: 01/25/2025 18:24
--- OUTSIDE RECORDS SUMMARY | 2025-01-25 15:54 | XMS_ITS | CCD ---
Author Organization [facility] CliniSyd[facility] Care Team Providers Care Automotive Manufacturer Name Role Phone Rachana LYONS Primary Care Physician SHERWIN ., DR HORTA Attending Unavailable SHERWIN ., DR HORTA Admitting Unavailable SHERWIN ., DR HORTA Consulting Unavailable SHERWIN ., DR HORTA Admitting Unavailable SHERWIN ., DR HORTA Consulting Unavailable SHERWIN ., DR HORTA Attending Unavailable UNLU, RACQUEL Consulting Unavailable Princess Rapp Primary Care Physician [phone] Allyssa Robles RN Unavailable Unavailable Mallory Jauregui [...] Referring Unavailable DONYA ABERNATHY Attending Unavailable SHERWIN, LAOY VINH Referring Unavailable SHERWIN, LAYO Attending Unavailable [...] Drug Allergy 03-16-2023 Unknown (qualifier value), Unknown [facility] Work Phone: (20 sources) Latex; Translations: [Latex] Drug allergy 03-16-2023 Rash [facility] Work Phone: (20 sources) nickel; Translations: [Nickel] Drug Allergy 03-16-2023 Rash, Itching [facility] Work Phone: Medications Current [...] tablet Indications: Pruritus of in second trimester ([facility]) Take 1 tablet (10 mg) by mouth [...] Do not use to face, armpits, groin., [facility]/pharmacy #[id number], 162, cm, 10/02/23 11:23:00 EDT, Height/Length Dosing, 76.7, kg, 10/02/23 11:23:00 EDT, Weight Dosing Start Date: 10/02/23 Status: Ordered Start: 02-10-2022 clobetasol pro pionate 0.05% top oint 1 bonifacio, Topical, BID, 45 gram, Refill(s) 0, Apply a thin film to affected area. Do not use to face, armpits, groin., [facility] 1985, 160, cm, 07/24/21 17:02:00 EDT, Height/Length Dosing, 71.6, kg, 07/24/21 17:02:00 EDT, Weight Dosing Start Date: 02/10/22 Status: Ordered Start: 01-29-2021 clobetasol pro pionate 0.05% top oint 1 bonifacio, Topical, BID, 45 gram, Refill(s) 1, [facility] 1985, 160, cm, 01/29/21 16:48:00 [...] spasm, # 30 tab(s), Refills(s) 1, Pharmacy: [facility]/pharmacy #[id number], 162, cm, 02/19/23 7:51:00 EDT, Height/Length [...] Refill(s) 6, Therapeutic tx; may refill early, [facility] 1986, 160, cm, 09/27/20 16:16:00 [...] Refill(s) 6, Therapeutic tx; may refill early, [facility], 160, cm, 09/27/20 16:16:00 [...] tablets Indications: Pruritus of in second trimester ([facility]) Day 1: 6 tablets Day 2: 5 tablets Day 3: 4 tablets Day 4: 3 tablets Day 5: 2 tablets Day 6: 1 tablet 21 tablet 10/04/2024 12/06/2024 Discontinued Start: 10-04-2024 methylPREDNISo lone (Medrol Dospak) 4 MG tablets Indications: Pruritus of in second trimester ([facility]) Day 1: 6 tablets Day 2: 5 [...] hour of each main meal containing fat, [facility] 1986, 160, cm, 07/24/21 17:02:00 [...] Take 1 each by mouth Daily Active gwheuhiv35-qfxx-pcl ic-omega3 29-1-400 mg combo pack,tablet and cap,DR (14 sources) fhiqpzml33-vpfy- f olic-omega3 29-1-400 mg combo pack,tablet and [...] Daily, # 90 tab(s), Refills(s) 3, Pharmacy: [facility]/pharmacy #[id number], 162, cm, 10/02/23 11:23:00 EDT, Height/Length Dosing, 76.7, kg, 10/02/23 11:23:00 EDT, Weight Dosing Start Date: 10/02/23 Status: Ordered Start: 08-27-2023 take 2 tablets by mo uth once daily Topamax 25 mg Tab 50 mg = 2 tab(s), Oral, Daily, # 180 tab(s), Refills(s) 0, Pharmacy: [facility]/pharmacy #[id number], 162, cm, 08/27/23 17:49:00 EDT, Height/Length [...] 4-7, # 90 tab(s), Refills(s) 1, Pharmacy: [facility]/pharmacy #[id number], 162, cm, 02/19/23 7:51:00 EDT, Height/Length [...] Facility US OB BPP W NON-STRESS on 01-24-[address] [address] Ultrasound Report Signed Patient: SYDNEY ROMERO MR#: [id number] : 1995 Acct:[id number] Age/Sex: 29 / F ADM Date: 01/24/25 Loc: US Attending Dr: Layo Courtney D.O. Ordering Physician: Layo Courtney D.O. Date of Service: 01/24/25 Procedure(s): US OB BPP w non-stress Accession Number(s): [id number] cc: Layo Courtney D.O.; Physician,Non-Staff Steven The [place] [address] Patient Name: SYDNEY ROMERO MRN: [facility]:[id number] date: 1995 Sex: F Assigned Patient Location: [facility] Current Patient Location: Accession/Order Number: [id number] Exam Date: 01/24/2025 16:10 Report Date: 01/24/2025 19:55 At the request of: LAYO COURTNEY DO Procedure: US OB BPP w non-stress Biophysical profile. Reason for exam: resulting in vitro fertilization COMPARISON: 01/17/2025 TECHNIQUE: Transabdominal imaging of the gravid uterus was obtained. FINDINGS: The plumber's helper reports a BPP of 6 out of 8 with 0/2 for gross body movements.. LONNY is normal at 11.9 cm. heart rate 148 bpm. US/US OB BPP w non-stress IMPRESSION: BPP 6out of 8. Correlation with NST is suggested. Impression dictated by: Juan Salinas Jr., D.O. 01/24/2025 7:55 PM Dictation Location: [place] [address] Electronically authenticated by: [id number] Y Date: 01/24/2025 19:55 Dictated By: Juan Salinas M.D. Signed By: 01/24/251957 DD/ 54 TD/TT: Header Machine Operator: [facility] Radiology, Radiologist, - 01/24/2025 [place] [address] Ultrasound Report Signed Patient: SYDNEY ROMERO MR#: [id number] : 1995 Acct:[id number] Age/Sex: 29 / F ADM Date: 01/24/25 Loc: US Attending Dr: Layo Courtney D.O. Ordering Physician: Layo Courtney D.O. Date of Service: 01/24/25 Procedure(s): US OB BPP w non-stress Accession Number(s): [id number] cc: Layo Courtney D.O.; Physician,Non-Staff Steven [place] [address] Patient Name: SYDNEY ROMERO MRN: [id number] date: 1995 Sex: F Assigned Patient Location: [facility] Current Patient Location: Accession/Order Number: [id number] Exam Date: 01/24/2025 16:10 Report Date: 01/24/2025 19:55 At the request of: LAYO COURTNEY DO Procedure: US OB BPP w non-stress Biophysical profile. Reason for exam: resulting in vitro fertilization COMPARISON: 01/17/2025 TECHNIQUE: Transabdominal imaging of the gravid uterus was obtained. FINDINGS: The plumber's helper reports a BPP of 6 out of 8 with 0/2 for gross body movements.. LONNY is normal at 11.9 cm. heart rate 148 bpm. US/US OB BPP w non-stress IMPRESSION: BPP 6out of 8. Correlation with NST is suggested. Impression dictated by: Juan Salinas Jr., D.O. 01/24/2025 7:55 PM Dictation Location: [place] [address] Electronically authenticated by: [id number] Y Date: 01/24/2025 19:55 Dictated By: Juan Salinas M.D. Signed By: 01/24/251957 DD/ 54 TD/TT: Header Machine Operator: [facility] Radiology Study observation (narrative) [facility] US OB BPP W NON-STRESS Ordered By: Radiologist Radiology on 01-24-2025 [facility] Work Phone: US OB BPP W NON-STRESS on 01-18-[address] [address] Ultrasound Report Signed Patient: SYDNEY ROMERO MR#: [id number] : 1995 Acct:[id number] Age/Sex: 29 / F ADM Date: 01/17/25 Loc: US Attending Dr: Layo Courtney D.O. Ordering Physician: Layo Courtney D.O. Date of Service: 01/17/25 Procedure(s): US OB BPP w non-stress Accession Number(s): [id number] cc: Layo Courtney D.O.; Physician,Non-Staff Steven The [address] [address] Patient Name: SYDNEY ROMERO MRN: [id number] date: 1995 Sex: F Assigned Patient Location: [facility] Current Patient Location: Accession/Order Number: [id number] Exam Date: 01/17/2025 16:08 Report Date: 01/18/2025 [...] [Y] 2/2 LONNY: 14.2 cm Total score: 8/ US/US OB BPP w non-stress IMPRESSION: NORMAL BIOPHYSICAL PROFILE. POSSIBLE VENOUS GILMORE. Impression dictated by: Mariela Toledo M.D. 01/18/2025 9:02 AM Dictation Location: [place] [address] Electronically authenticated by: [id number] Y Date: 01/18/2025 09:02 Dictated By: Mariela Toledo M.D. Signed By: 01/18/25904 DD/ 1 TD/TT: Header Machine Operator: [facility] Radiology, Radiologist, MD - 01/18/2025 [place] [address] Ultrasound Report Signed Patient: SYDNEY ROMERO MR#: [id number] : 1995 Acct:[id number] Age/Sex: 29 / F ADM Date: 01/17/25 Loc: US Attending Dr: Layo Courtney D.O. Ordering Physician: Layo Courtney D.O. Date of Service: 01/17/25 Procedure(s): US OB BPP w non-stress Accession Number(s): [id number] cc: Layo Courtney D.O.; Physician,Non-Staff Steven The [place] [id number] Patient Name: SYDNEY ROMERO MRN: [facility]:[id number] date: 1995 Sex: F Assigned Patient Location: [facility] Current Patient Location: Accession/Order Number: [id number] Exam Date: 01/17/2025 16:08 Report Date: 01/18/2025 [...] Toledo M.D. 01/18/2025 9:02 AM Dictation Location: [place] Electronically authenticated by: [id number] Y Date: 01/18/2025 09:02 Dictated By: Mariela Toledo M.D. Signed By: 01/18/25904 DD/ 1 TD/TT: Header Machine Operator: [facility] Radiology Study observation (narrative) [facility] US OB BPP W NON-STRESS Ordered By: Radiologist Radiology on 01-18-2025 [facility] Work Phone: Urinalysis macro (dipstick) panel (U)on 01-16-2025 Bilirubin, UA Negative Negative - 4(70) +++ mg/dL [facility] Blood, UA Negative Negative - 50 Jose/mcL [facility] Clarity, UA Clear [facility] Color, UA Yellow [facility] Glucose, UA Negative Negative - 2000(110) ++++ mg/dL [facility] Interpretation and review of laboratory results Abnormal [facility] Ketones, UA Negative Negative - 160(16) ++++ mg/dL [facility] Leukocytes, UA Positive Negative - 500+++ Onel/mcL [facility] Nitrite, UA Negative Negative - Positive [facility] pH, UA 6 5 - 9 [facility] Protein, UA Positive Negative - 2000(20) ++++ mg/dL [facility] Spec Grav, UA 1.03 1 - 1.03 [facility] Urobilinogen, UA 1.0 0.2 - 12 mg/dL [facility] US OB BPP W NON-STRESS on 01-10-2025 [place] [address] Ultrasound Report Signed Patient: SYDNEY ROMERO MR#: [id number] : 1995 Acct:[id number] Age/Sex: 29 / F ADM Date: 01/10/25 Loc: US Attending Dr: Layo Courtney D.O. Ordering Physician: Layo Courtney D.O. Date of Service: 01/10/25 Procedure(s): US OB BPP w non-stress Accession Number(s): [id number] cc: Layo Courtney D.O.; Physician,Non-Staff Steven [place] [address] Patient Name: SYDNEY ROMERO MRN: [id number] date: 1995 Sex: F Assigned Patient Location: US Current Patient Location: Accession/Order Number: [id number] Exam Date: 01/10/2025 16:03 Report Date: 01/10/2025 [...] Romero M.D. 01/10/2025 9:07 PM Dictation Location: [place] [address] Electronically authenticated by: [id number] Y Date: 01/10/2025 21:07 Dictated By: Bernabe Romreo M.D. Signed By: 01/10/252109 DD/ 06 TD/TT: Header Machine Operator: [facility] Radiology, Radiologist, - 01/10/2025 The [place] [id number] Ultrasound Report Signed Patient: SYDNEY ROMERO MR#: [id number] : 1995 Acct:[id number] Age/Sex: 29 / F ADM Date: 01/10/25 Loc: US Attending Dr: Layo Courtney D.O. Ordering Physician: Layo Courtney D.O. Date of Service: 01/10/25 Procedure(s): US OB BPP w non-stress Accession Number(s): [id number] cc: Layo Courtney D.O.; Physician,Non-Staff Steven The [address] [address] Patient Name: SYDNEY ROMERO MRN: [facility]:[id number] date: 1995 Sex: F Assigned Patient Location: US Current Patient Location: Accession/Order Number: [id number] Exam Date: 01/10/2025 16:03 Report Date: 01/10/2025 [...] Romero M.D. 01/10/2025 9:07 PM Dictation Location: [place] [address] Electronically authenticated by: [id number] Y Date: 01/10/2025 21:07 Dictated By: Bernabe Romero M.D. Signed By: 01/10/252109 DD/ 06 TD/TT: Header Machine Operator: [facility] Radiology Study observation (narrative) [facility] US OB BPP W NON-STRESS Ordered By: Radiologist Radiology on 01-10-2025 [facility] Work Phone: Urinalysis macro (dipstick) panel (U)on 01-03-2025 Bilirubin, UA Negative Negative - 4(70) +++ mg/dL [facility] Blood, UA Negative Negative - 50 Jose/mcL [facility] Clarity, UA Clear [facility] Color, UA Yellow [facility] Glucose, UA Trace Negative - 2000(110) ++++ mg/dL [facility] Interpretation and review of laboratory results Abnormal [facility] Ketones, UA Negative Negative - 160(16) ++++ mg/dL [facility] Leukocytes, UA Positive Negative - 500+++ Onel/mcL [facility] Nitrite, UA Negative Negative - Positive [facility] pH, UA 8 5 - 9 [facility] Protein, UA Negative Negative - 2000(20) ++++ mg/dL [facility] Spec Grav, UA 1.015 1 - 1.03 [facility] Urobilinogen, UA 1.0 0.2 - 12 mg/dL [facility] US OB FOLLOW UP TRANSABDOMIN AL APPROACHon [...] UA Negative Negative - 4(70) +++ mg/dL [facility] Blood, UA Positive Negative - 50 Jose/mcL [facility] Clarity, UA Clear [facility] Color, UA Yellow [facility] Glucose, UA Negative Negative - 2000(110) ++++ mg/dL [facility] Interpretation and review of laboratory results Abnormal [facility] Ketones, UA Negative Negative - 160(16) ++++ mg/dL [facility] Leukocytes, UA Positive Negative - 500+++ Onel/mcL [facility] Comment on above: 3+ Nitrite, UA Negative Negative - Positive [facility] pH, UA 6 5 - 9 [facility] Protein, UA Positive Negative - 2000(20) ++++ mg/dL [facility] Spec Grav, UA 1.03 1 - 1.03 [facility] Urobilinogen, UA 1.0 0.2 - 12 mg/dL [facility] GLUCOSE TOLERANCE 3 HOURon 0 12-06-2024 GLUCOSE TOLERANCE 3 HOUR mg/dL [facility] Comment on above: GLU FAST 90 (<95) Co l: 12/06/24 1126 GLU 1HR 143 (<180) Col: 12/06/24 1235 GLU 2HR 132 (<155) Col: 12/06/24 1327 GLU 3HR 81 (<140) Col: 12/06/24 1432 [facility] Urinalysis macro (dipstick) panel (U)on 12-06-2024 Bilirubin, UA Negative Negative - 4(70) +++ mg/dL [facility] Blood, UA Negative Negative - 50 Jose/mcL [facility] Clarity, UA Clear [facility] Color, UA Yellow [facility] Glucose, UA Negative Negative - 1999(110) ++++ mg/dL [facility] Interpretation and review of laboratory results Abnormal [facility] Ketones, UA Negative Negative - 160(16) ++++ mg/dL [facility] Leukocytes, UA 3+ Negative - 500+++ Onel/mcL [facility] Nitrite, UA Negative Negative - Positive [facility] pH, UA 8 5 - 9 [facility] Protein, UA Negative Negative - 2000(20) ++++ mg/dL [facility] Spec Grav, UA 1.015 1 - 1.03 [facility] Urobilinogen, UA 1.0 0.2 - 12 mg/dL [facility] ALL CBC WITH AUTO DIFFon BASOPHILS ABSOLUTE AUTO 0 N [facility] Basophils/100 WBC (Bld) 0.3 % 0.2 - 2.0 % [facility] Eosinophils/100 WBC (Bld) 1.1 % 0.9 - 7.0 % [facility] Erythrocyte distribution width (RBC) [Ratio] 12.4 % 11.0 - 15.0 % [facility] Hematocrit (Bld) [Volume fraction] 38.9 % 36.0 - 48.0 % [facility] Hemoglobin (Bld) [Mass/Vol] 13.6 g/dL 12.0 - 16.0 g/dL [facility] IMMATURE GRANULOCYTES ABS AUTO 0.13 High [facility] Immature granulocytes/100 WBC (Bld) 1.4 % High 0.0 - 0.5 % [facility] Interpretation and review of laboratory results Abnormal [facility] LYMPHOCYTES ABSOLUTE AUTO 1.7 [facility] Lymphocytes/100 WBC (Bld) 18.9 % Low 20.5 - 60. 0 % [facility] MCH (RBC) [Entitic mass] 31.5 pg 26. 7 - 34.0 pg [facility] MCHC (RBC) [Mass/Vol] 35 g/dL 29.9 - 35.2 g/dL [facility] MCV (RBC) [Entitic vol] 90 fL 81.0 - 99.0 fL [facility] MONOCYTES ABSOLUTE AUTO 0.4 N [facility] Monocytes/100 WBC (Bld) 4.6 % 1.7 - 12.0 % [facility] NEUTROPHILS ABSOLUTE AUTO 6.8 High [facility] Neutrophils/100 WBC (Bld) 73.7 % 43.0 - 75. 0 % [facility] Platelet mean volume (Bld) [Entitic vol] 11.3 fL 9.5 - 13.5 [facility] PLT 142 Low [facility] RBC 4.32 [facility] WBC 9.2 [facility] Urinalysis macro (dipstick) panel (U)on 11-09-2024 Bilirubin, UA Negative Negative - 4(70) +++ mg/dL [facility] Blood, UA Negative Negative - 50 Jose/mcL [facility] Clarity, UA Clear [facility] Color, UA Yellow [facility] Glucose, UA Negative Negative - 1999(110) ++++ mg/dL [facility] Interpretation and review of laboratory results Normal [facility] Ketones, UA Negative Negative - 160(16) ++++ mg/dL [facility] Leukocytes, UA Negative Negative - 500+++ Onel/mcL [facility] Nitrite, UA Negative Negative - Positive [facility] pH, UA 5.5 5 - 9 [facility] Protein, UA Negative Negative - 1999(20) ++++ mg/dL [facility] Spec Grav, UA 1.025 1 - 1.03 [facility] Urobilinogen, UA 1.0 0.2 - 12 mg/dL [facility] Urinalysis macro (dipstick) panel (U)on 10-17-2024 Bilirubin, UA Negative Negative - 4(70) +++ mg/dL [facility] Blood, UA Negative Negative - 50 Jose/mcL [facility] Clarity, UA Clear [facility] Color, UA Yellow [facility] Glucose, UA Negative Negative - 1999(110) ++++ mg/dL [facility] Interpretation and review of laboratory results Abnormal [facility] Ketones, UA Negative Negative - 160(16) ++++ mg/dL [facility] Leukocytes, UA Positive Negative - 500+++ Onel/mcL [facility] Comment on above: small Nitrite, UA Negative Negative - Positive [facility] pH, UA 7 5 - 9 [facility] Protein, UA Negative Negative - 1999(20) ++++ mg/dL [facility] Spec Grav, UA 1.015 1 - 1.03 [facility] Urobilinogen, UA 0.2 0.2 - 12 mg/dL [facility] ALL CBC WITH AUTO DIFFon BASOPHILS ABSOLUTE AUTO 0 N [facility] Basophils/100 WBC (Bld) 0.2 % 0.2 - 2.0 % [facility] Eosinophils/100 WBC (Bld) 3.2 % 0.9 - 7.0 % [facility] Erythrocyte distribution width (RBC) [Ratio] 12.5 % 11.0 - 15.0 % [facility] Hematocrit (Bld) [Volume fraction] 37.9 % 36.0 - 48.0 % [facility] Hemoglobin (Bld) [Mass/Vol] 13.2 g/dL 12.0 - 16.0 g/dL [facility] IMMATURE GRANULOCYTES ABS AUTO 0.14 High [facility] Immature granulocytes/100 WBC (Bld) 1.5 % High 0.0 - 0.5 % [facility] Interpretation and review of laboratory results Abnormal [facility] LYMPHOCYTES ABSOLUTE AUTO 2 [facility] Lymphocytes/100 WBC (Bld) 20.8 % 20.5 - 60. 0 % [facility] MCH (RBC) [Entitic mass] 30.9 pg 26. 7 - 34.0 pg [facility] MCHC (RBC) [Mass/Vol] 34.8 g/dL 29.9 - 35.2 g/dL [facility] MCV (RBC) [Entitic vol] 88.8 fL 81.0 - 99.0 fL [facility] MONOCYTES ABSOLUTE AUTO 0.7 N [facility] Monocytes/100 WBC (Bld) 7.2 % 1.7 - 12.0 % [facility] NEUTROPHILS ABSOLUTE AUTO 6.3 [facility] Neutrophils/100 WBC (Bld) 67.1 % 43.0 - 75. 0 % [facility] Platelet mean volume (Bld) [Entitic vol] 11.1 fL 9.5 - 13.5 fL [facility] EO # 0.3 [facility] PLT 153 [facility] RBC 4.27 [facility] WBC 9.4 [facility] US OB DETAIL ANATOMYon 10-07-2024 US OB [...] EFW (oz) 12 oz EFW by: Hadlock (VYP-AC-XD-FL) Extended Director Of Student Aid 6.0 mm CM 4.4 mm 36% Nicolaides [...] Normal LVOT view: Normal 3-vessel view: Normal 2-ktxbay-feyucdu view: Normal Heart / Thorax Situs: situs [...] Normal L (more content not included)... Normal [facility] US for pregnancyon Interpreted by: Ad Ovalle [...] EFW (oz) 12 oz EFW by: Hadlock (DVE-IS-VA-FL) Extended Director Of Student Aid 6.0 mm CM 4.4 mm 36% Nicolaides [...] Normal LVOT view: Normal 3-vessel view: Normal 2-rekarg-wedwapj view: Normal Heart / Thorax Situs: situs [...] Assisted Reproductive Technology History ====== General History Ugjczg417 cm Height (ft)5 ft Height (in)3 in Previous Outcomes Gravida1 Para0 Maternal Assessment Xazfaa076 cm Height (ft)5 ft Height (in)3 in Ghhtuo66 kg Weight (lb)165 lb Weight gain0 kg [...] 87% Hadlock Femur32.4 mm20w 1d 73% Hadlock Wmcuitu30.4 mm 45% Chitty HC / AC1.05 2% Hadlock EFT190 g20w 1d 91% Hadlock EFW (lb)0 lb EFW (oz)12 oz EFW by:Hadlock (HSN-AX-UA-FL) Extended Vp6.0 mm CM4.4 mm 36% Nicolaides Nasal bone4.7 mm Head / Face / Neck Cephalic index0.74 10% Nicolaides Nasal bone:present Extremities / Bony Struc FL / BPD0.74 92% Hadlock FL / HC0.20 96% Hadlock FL / AC0.21 35% Hadlock Other Structures FKY846 bpm Anatomy Cranium:Normal Lateral ventricles:Normal Choroid plexus:Normal [...] view:Normal RVOT view:Normal LVOT view:Normal 3-vessel view:Normal 9-ouzvny-vjkgtjn view:Normal Heart / Thorax Situs:situs solitus (normal) [...] Lt lower leg:Normal (more content not included)... [facility] Work Phone: Source Facility: [facility] Interpreted by: Ad Ovalle [...] EFW (oz) 12 oz EFW by: Hadlock (GSF-ME-JV-FL) Extended Director Of Student Aid 6.0 mm CM 4.4 mm 36% Nicolaides [...] Normal LVOT view: Normal 3-vessel view: Normal 9-egkzfi-kmkipyh view: Normal Heart / Thorax Situs: situs [...] lower (more content not included)... Radiology, Radiologist, - 10/07/2024 Source Facility: [facility] Interpreted by: Ad Ovalle [...] EFW (oz) 12 oz EFW by: Hadlock (HOF-TO-SX-FL) Extended Director Of Student Aid 6.0 mm CM 4.4 mm 36% Nicolaides [...] Normal LVOT view: Normal 3-vessel view: Normal 6-udvocm-deiiaat view: Normal Heart / Thorax Situs: situs [...] Normal Lt forear (more content not included)... [facility] Radiology Study observation (narrative) [facility] Work Phone: Radiology Study observation (narrative) [facility] US for pregnancyOrdered By: Ad Ovalle on 10-07-2024 [facility] Work Phone: US for pregnancyOrdered By: Radiologist Radiology on 10-07-2024 [facility] Work Phone: RECURRENT VAGINITIS (HTRX)on 09-07-2024 ATOPOBIUM VAGINAE 0 [facility] ATOPOBIUM VAGINAE Not detected [facility] BVAB 2,3 (BACTERIAL VAGINOSIS ASSOCIATED BACTERIA 2, 3); MOBILUNCUS SPP 0 [facility] BVAB 2,3 (BACTERIAL VAGINOSIS ASSOCIATED BACTERIA 2, 3); MOBILUNCUS SPP Not detected [facility] PRESTON ALBICANS, PARAPSILOSIS, TROPICALIS 0 [facility] PRESTON ALBICANS, PARAPSILOSIS, TROPICALIS Not detected [facility] PRESTON GLABRATA 0 [facility] PRESTON GLABRATA Not detected [facility] PRESTON KRUSEI 0 [facility] PRESTON KRUSEI Not detected [facility] CHLAMYDIA TRACHOMATIS 0 [facility] CHLAMYDIA TRACHOMATIS Not detected N [facility] GARDNERELLA VAGINALIS 0 [facility] GARDNERELLA VAGINALIS Not detected N [facility] MEGASPHAERA (TYPES 1, 2) 0 [facility] MEGASPHAERA (TYPES 1, 2) Not detected [facility] MYCOPLASMA GENITALIUM 0 [facility] MYCOPLASMA GENITALIUM Not detected N [facility] NEISSERIA GONORRHOEAE 0 [facility] NEISSERIA GONORRHOEAE Not detected N [facility] TRICHOMONAS VAGINALIS 0 [facility] TRICHOMONAS VAGINALIS Not detected N [facility] Urinalysis macro (dipstick) panel (U)on 09-06-2024 Bilirubin, UA Negative Negative - 4(70) +++ mg/dL [facility] Blood, UA Negative Negative - 50 Jose/mcL [facility] Clarity, UA Clear [facility] Color, UA Yellow [facility] Glucose, UA Negative Negative - 2000(110) ++++ mg/dL [facility] Interpretation and review of laboratory results Abnormal [facility] Ketones, UA Negative Negative - 160(16) ++++ mg/dL [facility] Leukocytes, UA Positive Negative - 500+++ Onel/mcL [facility] Comment on above: small Nitrite, UA Negative Negative - Positive [facility] pH, UA 6 5 - 9 [facility] Protein, UA Negative Negative - 2000(20) ++++ mg/dL [facility] Spec Grav, UA 1.03 1 - 1.03 [facility] Urobilinogen, UA 0.2 0.2 - 12 mg/dL [facility] ALL CBC WITH AUTO DIFFon BASOPHILS ABSOLUTE AUTO 0 N [facility] Basophils/100 WBC (Bld) 0.2 % 0.2 - 2.0 % [facility] Eosinophils/100 WBC (Bld) 2.9 % 0.9 - 7.0 % [facility] Erythrocyte distribution width (RBC) [Ratio] 12 % 11.0 - 15.0 % [facility] Hematocrit (Bld) [Volume fraction] 39.3 % 36.0 - 48.0 % [facility] Hemoglobin (Bld) [Mass/Vol] 13.6 g/dL 12.0 - 16.0 g/dL [facility] IMMATURE GRANULOCYTES ABS AUTO 0.06 High [facility] Immature granulocytes/100 WBC (Bld) 0.7 % High 0.0 - 0.5 % [facility] Interpretation and review of laboratory results Abnormal [facility] LYMPHOCYTES ABSOLUTE AUTO 2.1 [facility] Lymphocytes/100 WBC (Bld) 25.4 % 20.5 - 60. 0 % [facility] MCH (RBC) [Entitic mass] 30.2 pg 26. 7 - 34.0 pg [facility] MCHC (RBC) [Mass/Vol] 34.6 g/dL 29.9 - 35.2 g/dL [facility] MCV (RBC) [Entitic vol] 87.3 fL 81.0 - 99.0 fL [facility] MONOCYTES ABSOLUTE AUTO 0.5 N [facility] Monocytes/100 WBC (Bld) 5.8 % 1.7 - 12.0 % [facility] NEUTROPHILS ABSOLUTE AUTO 5.5 [facility] Neutrophils/100 WBC (Bld) 65 % 43.0 - 75. 0 % [facility] Platelet mean volume (Bld) [Entitic vol] 10.9 fL 9.5 - 13.5 fL [facility] TBH EO # 0.2 [facility] TB PLT 151 [facility] RBC 4.5 [facility] WBC 8.4 [facility] Urinalysis macro (dipstick) panel (U)on 08-08-2024 Bilirubin, UA Negative Negative - 4(70) +++ mg/dL [facility] Blood, UA Negative Negative - 50 Jose/mcL [facility] Clarity, UA Clear [facility] Color, UA Yellow [facility] Glucose, UA Negative Negative - 1999(110) ++++ mg/dL [facility] Interpretation and review of laboratory results Abnormal [facility] Ketones, UA Negative Negative - 160(16) ++++ mg/dL [facility] Leukocytes, UA Positive Negative - 500+++ Onel/mcL [facility] Comment on above: small Nitrite, UA Negative Negative - Positive [facility] pH, UA 6 5 - 9 [facility] Protein, UA Negative Negative - 1999(20) ++++ mg/dL [facility] Spec Grav, UA 1.025 1 - 1.03 [facility] Urobilinogen, UA 0.2 0.2 - 12 mg/dL [facility] HCG ( test) Ql (U)o n 07-29-2024 Interpretation and review of laboratory results Abnormal [facility] Preg Test, Ur Positive Negative [facility] Urinalysis macro (dipstick) panel (U)on 07-29-2024 Bilirubin, UA Negative Negative - 4(70) +++ mg/dL [facility] Blood, UA Positive Negative - 50 Jose/mcL [facility] Comment on above: trace Clarity, UA Clear [facility] Color, UA Yellow [facility] Glucose, UA Negative Negative - 1999(110) ++++ mg/dL [facility] Interpretation and review of laboratory results Abnormal [facility] Ketones, UA Negative Negative - 160(16) ++++ mg/dL [facility] Leukocytes, UA Positive Negative - 500+++ Onel/mcL [facility] Comment on above: small Nitrite, UA Negative Negative - Positive [facility] pH, UA 5.5 5 - 9 [facility] Protein, UA Negative Negative - 1999(20) ++++ mg/dL [facility] Spec Grav, UA 1.03 1 - 1.03 [facility] Urobilinogen, UA 0.2 0.2 - 12 mg/dL [facility] PROGESTERONEon 07-12-2024 PROGESTERONE 53.5 ng/mL Normal [facility] Comment on above: Result Comment: Refe rence Ranges Female Follicular Phase < 1.0 Luteal Phase 2.6-21.5 Post menopausal < 0.5 1st Trimester 4.1-34.0 2nd Trimester 24.0-76.0 3rd Trimester 52.0-302.0 Performed By: #### 7 45 #### [facility] [address], [address] [place] [address] Tool And Die Technician: Alexey Boogie MD US OB TRANSVAGINALon 025 [...] evaluation for early dating. View: Sufficient Normal [facility] Choriogonadotropin.beta subu niton 06-30-2024 HCG.beta subunit Qn 6575 m[IU]/mL High <5 Un [facility] Comment on above: Order Comment: Total HCG measurement is performed using the [employer] Access Immunoassay which detects intact HCG and free beta HCG subunit. This test is not indicated for use as a tumor marker. HCG testing is performed using a different test methodology at [facility] than [facility]. Direct result comparison should only be made [...] By: #### 2 1198-7 #### JOSEPH ESQUIVEL ([id number]) [facility] ([facility]) [address] [place] [address] Choriogonadotropin.beta subu niton 06-23-2024 HCG.beta subunit Qn 330 m[IU]/mL High <5 [facility] Comment on above: Order Comment: Total HCG measurement is performed using the [employer] Access Immunoassay which detects intact HCG and free beta HCG subunit. This test is not indicated for use as a tumor marker. HCG testing is performed using a different test methodology at [facility] than [facility]. Direct result comparison should only be made [...] By: #### 2 1198-7 #### JOSEPH ESQUIVEL ([id number]) [facility] ([facility]) [address] [place], [place] [id number] Estradiolon 06-23-2024 E2 [Mass/Vol] 378 pg/mL Normal [facility] Comment on above: Order Comment: REF V ALUES FOLLICULAR PHASE 20-144 MID CYCLE 64-357 LUTEAL PHASE 56-214 POSTMENOPAUSE < 32 PREPUBERTY < 20 FEMALE 10-18Y 8-110 MALE 10-18Y < 20 ADULT MALE < 40 Estradiol measurement is performed using the [employer] Access Estradiol Immunoassay. Estradiol testing is performed using a different test methodology at [facility] than other [facility]. Direct result comparison should only be made within the same method. Performed By: #### 2 243-4 #### JOSEPH ESQUIVEL ([id number]) [facility] ([facility]) [address] [place], [place] [id number] Progesteroneon 06-23-2024 Progesterone [Mass/Vol] 42.6 ng/mL Normal [facility] Comment on above: Order Comment: REF V ALUES Male <0.2-0.8 Follicular Phase <0.2-1.5 Luteal Phase 7.4-15.4 Post Menopausal <0.2-0.2 1ST Trimester 12.0-84.0 2ND Trimester 10.2-58.8 3RD Trimester 46.5-160 Progesterone is performed using the [employer] Access Immunoassay. Progesterone testing is performed using a different test methodology at [facility] than other [facility]. Direct result comparison should only be made within the same method. Performed By: #### 2 839-9 #### JOSEPH ESQUIVEL ([id number]) [facility] ([facility]) [address] [place], [place] [id number] No Panel Informationon 06-13 Juan Chavarria MD [...] Preop diagnosis: Infertility Post op diagnosis: Same Paper Control Clerk: none Depth: 7 cm Curve: anterior Distance [...] Juan Chavarria 06/13/24 11:24 AM [facility] Work Phone: Progesteroneon 06-13-2024 Progesterone [Mass/Vol] 45.0 ng/mL Normal [facility] Comment on above: Order Comment: REF V ALUES Male <0.2-0.8 Follicular Phase <0.2-1.5 Luteal Phase 7.4-15.4 Post Menopausal <0.2-0.2 1ST Trimester 12.0-84.0 2ND Trimester 10.2-58.8 3RD Trimester 46.5-160 Progesterone is performed using the [employer] Access Immunoassay. Progesterone testing is performed using a different test methodology at [facility] than other [facility]. Direct result comparison should only be made within the same method. Performed By: #### 2 839-9 #### ORA MARQUES ([id number]) [facility] ([facility]) [address] [place] [address] Estradiolon 06-07-2024 E2 [Mass/Vol] 2870 pg/mL Normal [facility] Comment on above: Order Comment: REF V ALUES FOLLICULAR PHASE 20-144 MID CYCLE 64-357 LUTEAL PHASE 56-214 POSTMENOPAUSE < 32 PREPUBERTY < 20 FEMALE 10-18Y 8-110 MALE 10-18Y < 20 ADULT MALE < 40 Performed By: #### 2 243-4 #### JOSEPH ESQUIVEL ([id number]) [facility] ([facility]) [address] [place] [address] Progesteroneon 06-07-2024 Progesterone [Mass/Vol] 0.4 ng/mL Normal [facility] Comment on above: Order Comment: REF V ALUES Male <0.2-0.8 Follicular Phase <0.2-1.5 Luteal Phase 7.4-15.4 Post Menopausal <0.2-0.2 1ST Trimester 12.0-84.0 2ND Trimester 10.2-58.8 3RD Trimester 46.5-160 Progesterone is performed using the [employer] Access Immunoassay. Progesterone testing is performed using a different test methodology at [facility] than other [facility]. Direct result comparison should only be made within the same method. Result Comment: Ref Values Male <0.3- 1.2 Follicular Phase <0.3- 1.4 Luteal Phase 3.3-25.6 Mid-Luteal Phase 4.4-28.0 Postmenopausal <0.3- 0.7 Females: 1st Trimester 11.2- 90.0 2nd Trimester 25.6- 89.4 3RD Trimester 48.4-422.5 Patients receiving DHEA-S supplements may show false elevation of progesterone for results near 1.0 ng/mL. Contact laboratory at [phone] if alternative testing is needed. Performed By: #### 2 839-9 #### JOSEPH ESQUIVEL ([id number]) [facility] ([facility]) [address] [place] [address] [facility] US PELVIS LIMITED FOLLIC LES-FOLLICLE STUDIES PERFORMEDon 06-07-2024 [facility] US PELVIS LIMITED FOLLICLES-FOLLICLE STUDIES PERFORMED Follicle scan performed with follicle measurements in report. and Trilaminar appearance to the endometrium is noted. Normal [facility] Estradiolon 06-06-2024 E2 [Mass/Vol] 558 pg/mL Normal [facility] Comment on above: Order Comment: REF V ALUES FOLLICULAR PHASE 20-144 MID CYCLE 64-357 LUTEAL PHASE 56-214 POSTMENOPAUSE < 32 PREPUBERTY < 20 FEMALE 10-18Y 8-110 MALE 10-18Y < 20 ADULT MALE < 40 Performed By: #### 2 243-4 #### JOSEPH ESQUIVEL ([id number]) [facility] ([facility]) [address] [place] [address] Follicle Diameter USon 06-06 Trilaminar appearance to the endometrium is noted. RIS SECTRA ONLY [facility] Work Phone: Radiology Study observation (narrative) [facility] Work Phone: Progesteroneon 06-06-2024 Progesterone [Mass/Vol] 0.8 ng/mL Normal U [facility] Comment on above: Order Comment: REF V ALUES Male <0.2-0.8 Follicular Phase <0.2-1.5 Luteal Phase 7.4-15.4 Post Menopausal <0.2-0.2 1ST Trimester 12.0-84.0 2ND Trimester 10.2-58.8 3RD Trimester 46.5-160 Progesterone is performed using the [employer] Access Immunoassay. Progesterone testing is performed using a different test methodology at [facility] than other [facility]. Direct result comparison should only be made within the same method. Result Comment: Ref Values Male <0.3- 1.2 Follicular Phase <0.3- 1.4 Luteal Phase 3.3-25.6 Mid-Luteal Phase 4.4-28.0 Postmenopausal <0.3- 0.7 Females: 1st Trimester 11.2- 90.0 2nd Trimester 25.6- 89.4 3RD Trimester 48.4-422.5 Patients receiving DHEA-S supplements may show false elevation of progesterone for results near 1.0 ng/mL. Contact laboratory at [phone] if alternative testing is needed. Performed By: #### 2 839-9 #### JOSEPH ESQUIVEL ([id number]) [facility] ([facility]) [address] [place] [address] [facility] US ENDOMETRIAL LINING CH ECKon 06-06-2024 [facility] US ENDOMETRIAL LINING CHECK Trilaminar appearance to the endometrium is noted. Normal [facility] No Panel Informationon 03-22 Juan Chavarria MD 03/22/2024 9:44 AM Egg Retrieval Date/Time: 03/22/2024 9:39 AM Performed by: Juan Chavarria MD Authorized by: Donya Abernathy APRN-REAL TIME OPERATOR Consent: Consent obtained: Verbal and written [...] diagnosis: Female infertility Post op diagnosis: Same Paper Control Clerk: Dr. Warren IV Fluids: 600 cc EBL: 5 cc UOP: Not recorded Specimen: Oocytes Complications: None Number of Oocytes right ovary: 16 Ovarian access (right): Easy Number of Oocytes left ovary: 9 Ovarian access (left): Easy Endometrial thickness: n/a Needle type: Single Additional notes: [facility] Work Phone: Lutropinon 03-21-2024 Lutropin Qn 29.3 IU/L [facility] Comment on above: Result Comment: LH R eference Values Follicular Phase 1.5-10.0 Mid-Cycle 13.0-72.0 Luteal Phase 0.5-13.0 Menopause 15.0-65.0 Pre-puberty 0- 3.0 Children 0- 6.0 Adult Male 1.0- 9.0 Luteinizing Hormone is performed using the [employer] Access Immunoassay. LH testing is performed using a different test methodology at [facility] than other [facility]. Direct result comparison should only be made within the same method. Performed By: #### 4 7236-5 #### SHAI Pickard ([id number]) [facility] ([facility]) [address] [place] [address] Progesteroneon 03-21-2024 Progesterone [Mass/Vol] 4.5 ng/mL Normal [facility] Comment on above: Order Comment: HIV [...] By: #### 5 6888-1 #### SHAI Pickard ([id number]) [facility] ([facility]) [address] [place] [address] E2 [Mass/Vol]Ordered By: Shira Rich on 03-20-2024 REF VALUES FOLLICULAR PHASE 20-144 MID CYCLE 64-357 LUTEAL PHASE 56-214 POSTMENOPAUSE < 32 PREPUBERTY < 20 FEMALE 10-18Y 8-110 MALE 10-18Y < 20 ADULT MALE < 40 Estradiol measurement is performed using the [employer] Access Estradiol Immunoassay. Estradiol testing is performed using a different test methodology at [facility] than other [facility]. Direct result comparison should only be made within the same method. [facility] EstradiolOrdered By: Bela Rich on 03-20-2024 E2 [Mass/Vol] 4909 pg/mL [facility] Estradiolon 03-20-2024 E2 [Mass/Vol] 4909 pg/mL Normal [facility] Comment [...] By: #### 5 6888-1 #### SHAI Pickard ([id number]) [facility] ([facility]) [id number] [place] [address] Follicle Diameter USon 03-20 Follicle scan performed with follicle measurements in report. RIS SECTRA ONLY [facility] Work Phone: Radiology Study observation (narrative) [facility] Work Phone: Progesteroneon 03-20-2024 Progesterone [Mass/Vol] 1.3 ng/mL U [facility] Progesterone [Mass/Vol] 1.3 ng/mL Normal [facility] Comment on above: Order Comment: HIV A g/Ab screen is performed using the Siemens [employer] HIV Ag/Ab Combo assay which detects the presence of HIV p24 antigen as well as antibodies to HIV-1 (Group M and O) and HIV-2. No laboratory evidence of HIV infection. If acute HIV infection is suspected, consider testing for HIV RNA by PCR (viral load). Performed By: #### 5 6888-1 #### SHAI Pickard ([id number]) [facility] ([facility]) [address] [place] [address] Progesterone [Mass/Vol]on REF VALUES Male <0.2-0.8 Follicular Phase <0.2-1.5 Luteal Phase 7.4-15.4 Post Menopausal <0.2-0.2 1ST Trimester 12.0-84.0 2ND Trimester 10.2-58.8 3RD Trimester 46.5-160 Progesterone is performed using the [employer] Access Immunoassay. Progesterone testing is performed using a different test methodology at [facility] than other [facility]. Direct result comparison should only be made within the same method. [facility] US PELVIS LIMITED FOLLIC LES-FOLLICLE STUDIES PERFORMEDon 03-20-2024 [facility] US PELVIS LIMITED FOLLICLES-FOLLICLE STUDIES PERFORMED Follicle scan performed with follicle measurements in report. Normal [facility] Estradiolon 03-19-2024 E2 [Mass/Vol] 3760 pg/mL Normal [facility] Comment [...] By: #### 5 6888-1 #### SHAI Pickard ([id number]) [facility] ([facility]) [address] [place] [address] Follicle Diameter USon 03-19 Follicle scan performed with follicle measurements in report. RIS SECTRA ONLY [facility] Work Phone: Radiology Study observation (narrative) [facility] Work Phone: Progesteroneon 03-19-2024 Progesterone [Mass/Vol] 1.1 ng/mL Normal U [facility] Comment on above: Order Comment: [...] By: #### 5 6888-1 #### SHAI Pickard ([id number]) [facility] ([facility]) [address] [place] [address] [facility] PELVIS LIMITED FOLLIC LES-FOLLICLE STUDIES PERFORMEDon 03-19-2024 [facility] US PELVIS LIMITED FOLLICLES-FOLLICLE STUDIES PERFORMED Follicle scan performed with follicle measurements in report. Normal [facility] E2 [Mass/Vol]on 03-17-2024 REF VALUES FOLLICULAR PHASE 20-144 MID CYCLE 64-357 LUTEAL PHASE 56-214 POSTMENOPAUSE < 32 PREPUBERTY < 20 FEMALE 10-18Y 8-110 MALE 10-18Y < 20 ADULT MALE < 40 Estradiol measurement is performed using the [employer] Access Estradiol Immunoassay. Estradiol testing is performed using a different test methodology at [facility] than other [facility]. Direct result comparison should only be made within the same method. [facility] Estradiolon 03-17-2024 E2 [Mass/Vol] 1462 pg/mL [facility] E2 [Mass/Vol] 1462 pg/mL Normal [facility] Comment [...] By: #### 5 6888-1 #### SHAI Pickard ([id number]) [facility] ([facility]) [address] [place] [address] Follicle Diameter USon 03-17 Follicle scan performed with follicle measurements in report. Trilaminar appearance to the endometrium is noted. Physiologic free fluid is noted in the cul de sac. Notably retroverted uterus. Two small complex ovarian cysts noted, one on the left and one on the right. RIS SECTRA ONLY Radiology Study observation (narrative) [facility] Work Phone: Follicle Diameter USOrdered By: Leigh Ann Tuttle on 03-17-2024 [facility] Work Phone: Progesteroneon 03-17-2024 Progesterone [Mass/Vol] 0.6 ng/mL Normal [facility] Comment on above: Order Comment: HIV [...] By: #### 5 6888-1 #### SHAI Pickard ([id number]) [facility] ([facility]) [address] [place] [address] [facility] US PELVIS LIMITED FOLLIC LES-FOLLICLE STUDIES PERFORMEDon 03-17-2024 [facility] US PELVIS LIMITED FOLLICLES-FOLLICLE STUDIES PERFORMED Follicle scan performed with follicle measurements in report. Trilaminar appearance to the endometrium is noted. Physiologic free fluid is noted in the cul de sac. Notably retroverted uterus. Two small complex ovarian cysts noted, one on the left and one on the right. Normal [facility] E2 [Mass/Vol]on 03-15-2024 REF VALUES FOLLICULAR PHASE 20-144 MID CYCLE 64-357 LUTEAL PHASE 56-214 POSTMENOPAUSE < 32 PREPUBERTY < 20 FEMALE 10-18Y 8-110 MALE 10-18Y < 20 ADULT MALE < 40 Estradiol measurement is performed using the [employer] Access Estradiol Immunoassay. Estradiol testing is performed using a different test methodology at [facility] than other [facility]. Direct result comparison should only be made within the same method. [facility] Estradiolon 03-15-2024 E2 [Mass/Vol] 721 pg/mL [facility] E2 [Mass/Vol] 721 pg/mL Normal [facility] Comment on above: Order Comment: REF V ALUESFOLLICULAR PHASE 20-144MID CYCLE 64-357LUTEAL PHASE 56-214POSTMENOPAUSE < 32PREPUBERTY < 20FEMALE 10-18Y 8-110MALE 10-18Y < 20ADULT MALE < 40Estradiol measurement is performed using the [employer] Access Estradiol Immunoassay. Estradiol testing is performed using a different test methodology at [facility] than other [facility]. Direct resultcomparison should only be made within the same method. Performed By: #### 1 6128-1 #### SHAI Pickard ([id number]) [facility] ([facility]) [address] [place] [address] Follicle Diameter USon 03-15 Follicle scan performed with follicle measurements in report., Trilaminar appearance to the endometrium is noted., and Free fluid is noted in the cul de sac. RIS SECTRA ONLY [facility] Work Phone: Radiology Study observation (narrative) [facility] Work Phone: [facility] US PELVIS LIMITED FOLLIC LES-FOLLICLE STUDIES PERFORMEDon 03-15-2024 [facility] US PELVIS LIMITED FOLLICLES-FOLLICLE STUDIES PERFORMED Follicle scan performed with follicle measurements in report., Trilaminar appearance to the endometrium is noted., and Free fluid is noted in the cul de sac. Normal [facility] E2 [Mass/Vol]on 03-09-2024 REF VALUES FOLLICULAR PHASE 20-144 MID CYCLE 64-357 LUTEAL PHASE 56-214 POSTMENOPAUSE < 32 PREPUBERTY < 20 FEMALE 10-18Y 8-110 MALE 10-18Y < 20 ADULT MALE < 40 Estradiol measurement is performed using the [employer] Access Estradiol Immunoassay. Estradiol testing is performed using a different test methodology at [facility] than other [facility]. Direct result comparison should only be made within the same method. [facility] Estradiolon 03-09-2024 E2 [Mass/Vol] pg/mL pg/mL [facility] E2 [Mass/Vol] pg/mL Normal [facility] Comment on above: Order Comment: REF V ALUESFOLLICULAR PHASE 20-144MID CYCLE 64-357LUTEAL PHASE 56-214POSTMENOPAUSE < 32PREPUBERTY < 20FEMALE 10-18Y 8-110MALE 10-18Y < 20ADULT MALE < 40Estradiol measurement is performed using the [employer] Access Estradiol Immunoassay. Estradiol testing is performed using a different test methodology at [facility]. Direct resultcomparison should only be made within the same method. Performed By: #### 1 4428-1 #### SHAI Pickard ([id number]) [facility] ([facility]) [address] [place] [address] Follicle Diameter USon 03-09 Follicle scan performed with follicle measurements in report., Trilaminar appearance to the endometrium is noted., and Free fluid is noted in the cul de sac. RIS SECTRA ONLY Radiology Study observation (narrative) [facility] Work Phone: Follicle Diameter USOrdered By: Alicia Morgan on 03-09-2024 [facility] Work Phone: Hematocrit Auto (Bld) [Volum e fraction]on 03-09-2024 Hematocrit (Bld) [Volume fraction] 43.2 % 36.0 - 46.0 % [facility] Interpretation and review of laboratory results Normal [facility] Hematocrit (Bld) [Volume fraction] 43.2 % Normal 36.0-46.[address] [facility] Comment on above: Performed By: #### 1 6128-1 #### SHAI Pickrad ([id number]) [facility] ([facility]) [address] [place] [address] KELSY US PELVIS LIMITED FOLLIC LES-FOLLICLE STUDIES PERFORMEDon 03-09-2024 KELSY US PELVIS LIMITED FOLLICLES-FOLLICLE STUDIES PERFORMED Follicle scan performed with follicle measurements in report., Trilaminar appearance to the endometrium is noted., and Free fluid is noted in the cul de sac. [facility] No Panel Informationon 02-22 Juan Chavarria [...] diagnosis: Female infertility Post op diagnosis: Same Paper Control Clerk: none IV Fluids: 500 cc EBL: 5 cc UOP: Not recorded Specimen: Oocytes Complications: None Number of Oocytes right ovary: 17 Ovarian acc ss (right): Easy Number of Oocytes left ovary: 13 Ovarian access (left): Easy Endometrial thickness: n/a Needle type: Single Additional notes: [facility] Work Phone: Lutropinon 02-22-2024 Lutropin Qn 35.3 IU/L [facility] Comment on above: Result Comment: LH R eference Values Follicular Phase 1.5-10.0 Mid-Cycle 13.0-72.0 Luteal Phase 0.5-13.0 Menopause 15.0-65.0 Pre-puberty 0- 3.0 Children 0- 6.0 Adult Male 1.0- 9.0 Luteinizing Hormone is performed using the [employer] Access Immunoassay. LH testing is performed using a different test methodology at [facility] than other system hospitals. Direct result comparison should only be made within the same method. Performed By: #### 1 6128-1 #### SHAI Pickard ([id number]) [facility] ([facility]) [address] [place] [address] Progesteroneon 02-22-2024 Progesterone [Mass/Vol] 5.0 ng/mL Normal [facility] Comment on above: Order Comment: REF V ALUESMale <0.2-0.8Follicular Phase <0.2-1.5Luteal Phase 7.4-15.4Post Menopausal <0.2-0.21ST Trimester 12.0-84.02ND Trimester 10.2-58.83RD Trimester 46.5-160Progesterone is performed using the [employer] Access Immunoassay.Progesterone testing is performed using a different test methodology at [facility] other [facility]. Direct result comparison should only be made within the same method. Performed By: #### 1 6128-1 #### SHAI Pickard ([id number]) [facility] ([facility]) [address] [place] [address] E2 [Mass/Vol]Ordered By: Christi Infante on 02-21-2024 REF VALUES FOLLICULAR PHASE 20-144 MID CYCLE 64-357 LUTEAL PHASE 56-214 POSTMENOPAUSE < 32 PREPUBERTY < 20 FEMALE 10-18Y 8-110 MALE 10-18Y < 20 ADULT MALE < 40 Estradiol measurement is performed using the [employer] Access Estradiol Immunoassay. Estradiol testing is performed using a different test methodology at [facility] other [facility]. Direct result comparison should only be made within the same method. [facility] EstradiolOrdered By: Janet Ritchie on 02-21-2024 E2 [Mass/Vol] 5153 pg/mL [facility] Estradiolon 02-21-2024 E2 [Mass/Vol] 5153 pg/mL Normal [facility] Comment on above: Order Comment: REF V ALUESFOLLICULAR PHASE 20-144MID CYCLE 64-357LUTEAL PHASE 56-214POSTMENOPAUSE < 32PREPUBERTY < 20FEMALE 10-18Y 8-110MALE 10-18Y < 20ADULT MALE < 40Estradiol measurement is performed using the [employer] Access Estradiol Immunoassay. Estradiol testing is performed using a different test methodology at [facility] other [facility]. Direct resultcomparison should only be made within the same method. Performed By: #### 1 6128-1 #### SHAI Pickard ([id number]) [facility] ([facility]) [address] [place] [address] Follicle Diameter USon 02-20 Follicle scan performed with follicle measurements in report. RIS SECTRA ONLY Radiology Study observation (narrative) [facility] Work Phone: Follicle Diameter USOrdered By: Juan Chavarria on 02-21-2024 [facility] Work Phone: Luteinizing Hormone (LH)on Lutropin Qn 0.9 m[IU]/mL IU/L [facility] Comment on above: LH Reference Values Follicular Phase 1.5-10.0 Mid-Cycle 13.0-72.0 Luteal Phase 0.5-13.0 Menopause 15.0-65.0 Pre-puberty 0- 3.0 Children 0- 6.0 Adult Male 1.0- 9.0 Luteinizing Hormone is performed using the [employer] Access Immunoassay. LH testing is performed using a different test methodology at [facility]. Direct result comparison should only be made within the same method. Lutropinon 02-21-2024 Lutropin Qn 0.9 IU/L Normal [facility] Comment on above: Result Comment: LH R eference Values Follicular Phase 1.5-10.0 Mid-Cycle 13.0-72.0 Luteal Phase 0.5-13.0 Menopause 15.0-65.0 Pre-puberty 0- 3.0 Children 0- 6.0 Adult Male 1.0- 9.0 Luteinizing Hormone is performed using the [employer] Access Immunoassay. LH testing is performed using a different test methodology at [facility] other [facility]. Direct result comparison should only be made within the same method. Performed By: #### 1 6128-1 #### SHAI Pickard ([id number]) [facility] ([facility]) [address] [place] [address] Lutropin Qnon 02-21-2024 [facility] Progesteroneon 02-21-2024 Progesterone [Mass/Vol] 1.3 ng/mL U [facility] Progesterone [Mass/Vol] 1.3 ng/mL Normal [facility] Comment on above: Order Comment: REF V ALUESMale <0.2-0.8Follicular Phase <0.2-1.5Luteal Phase 7.4-15.4Post Menopausal <0.2-0.21ST Trimester 12.0-84.02ND Trimester 10.2-58.83RD Trimester 46.5-160Progesterone is performed using the [employer] Access Immunoassay.Progesterone testing is performed using a different test methodology at [facility] other [facility]. Direct result comparison should only be made within the same method. Performed By: #### 5 196-1 #### SHAI Pickard ([id number]) [facility] ([facility]) [address] [place] [address] Progesterone [Mass/Vol]on REF VALUES Male <0.2-0.8 Follicular Phase <0.2-1.5 Luteal Phase 7.4-15.4 Post Menopausal <0.2-0.2 1ST Trimester 12.0-84.0 2ND Trimester 10.2-58.8 3RD Trimester 46.5-160 Progesterone is performed using the [employer] Access Immunoassay. Progesterone testing is performed using a different test methodology at [facility] than other [facility]. Direct result comparison should only be made within the same method. [facility] KELSY US PELVIS LIMITED FOLLIC LES-FOLLICLE STUDIES PERFORMEDon 02-21-2024 KELSY US PELVIS LIMITED FOLLICLES-FOLLICLE STUDIES PERFORMED Follicle scan performed with follicle measurements in report. Normal [facility] Estradiolon 02-20-2024 E2 [Mass/Vol] 3718 pg/mL Normal [facility] Comment on above: Order Comment: REF V ALUESFOLLICULAR PHASE 20-144MID CYCLE 64-357LUTEAL PHASE 56-214POSTMENOPAUSE < 32PREPUBERTY < 20FEMALE 10-18Y 8-110MALE 10-18Y < 20ADULT MALE < 40Estradiol measurement is performed using the [employer] Access Estradiol Immunoassay. Estradiol testing is performed using a different test methodology at [facility] other [facility]. Direct resultcomparison should only be made within the same method. Performed By: #### 5 196-1 #### SHAI Pickard ([id number]) [facility] ([facility]) [address] [place], [place] [address] Progesteroneon 02-20-2024 Progesterone [Mass/Vol] 1.4 ng/mL Normal [facility] Comment on above: Order Comment: REF V ALUESMale <0.2-0.8Follicular Phase <0.2-1.5Luteal Phase 7.4-15.4Post Menopausal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 #### C BC #### [facility] [address] [place] [address] Dr. Meghna Alas WBC 6.2 103/ul Normal 4.0-11.0 [facility] Comment on above: Performed By: #### C BC #### [facility] [address] [place] [address] Dr. Meghna Alas FREE T4on 07-26-2022 Free T4 [Mass/Vol] 1.04 ng/dL Normal 0.76-1.46 [facility] Comment on above: Performed By: #### F T4 #### [facility] [address] [place] [address] Dr. Meghna Alas GLYCOHEMOGLOBIN A1Con 2022 ADA RECOMMENDATION SEE BELOW Normal [facility] Comment on above: Result Comment: ADA RECOMMENDED LIMIT 4.0 - 6.0 ADA THERAPEUTIC TARGET < 7.0 ACTION SUGGESTED > 7.0 Performed By: #### A 1C #### [facility] [address] [place] [address] Dr. Meghna Alas Glucose [Mass/Vol] 82 mg/dL Normal [facility] Comment on above: Performed By: #### A 1C #### [facility] [address] [place] [address] Dr. Meghna Alas HbA1c (Bld) [Mass fraction] 4.5 % Normal 4.5-6.2 [facility] Comment on above: Performed By: #### A 1C #### [facility] [address] [place] [address] Dr. Meghna Alas TSHon 07-26-2022 TSH 1.522 uIU/mL Normal 0.358-3.740 [facility] Comment on above: Performed By: #### T SH #### [facility] [address] [place] [address] Dr. Meghna Alas Vital Signs Date Time Vital Sign Value Performing Clinician Facility 01-16-2025 15:13-0400 Body mass index (BMI) [Ratio] 40.21 kg/m2 CH Mack DO Work Phone: [facility] 01-16-2025 15:13-0400 Body weight 102.97 kg Layo Sherwin DO Work Phone: [facility] 01-16-2025 15:13-0400 Diastolic blood pressure 70 mm[Hg] Layo Sherwin DO Work Phone: [facility] 01-16-2025 15:13-0400 Systolic blood pressure 110 mm[Hg] Layo Sherwin DO Work Phone: [facility] 01-03-2025 10:15-0400 Body mass index (BMI) [Ratio] 39.47 kg/m2 Layo Sherwin DO Work Phone: [facility] 01-03-2025 10:15-040 Body weight 101.06 kg Layo Sherwin DO Work Phone: [facility] 01-03-2025 10:15-0400 Diastolic blood pressure 74 mm[Hg] Layo Sherwin DO Work Phone: [facility] 01-03-2025 10:15-0400 Systolic blood pressure 118 mm[Hg] Layo Sherwin DO Work Phone: [facility] 12-19-2024 10:06-0400 Body mass index (BMI) [Ratio] 38.76 kg/m2 Layo Sherwin DO Work Phone: [facility] 12-19-2024 10:06-0400 Body weight 99.25 kg Layo Sherwin DO Work Phone: [facility] 12-19-2024 10:06-0400 Diastolic blood pressure 70 mm[Hg] Layo Sherwin DO Work Phone: [facility] 12-19-2024 10:06-0400 Systolic blood pressure 116 mm[Hg] Layo Sherwin DO Work Phone: [facility] 12-06-2024 08:33-0400 Body mass index (BMI) [Ratio] 38.09 kg/m2 Layo Sherwin DO Work Phone: [facility] 12-06-2024 08:33-0400 Body weight 97.52 kg Layo Sherwin DO Work Phone: [facility] 12-06-2024 08:33-0400 Diastolic blood pressure 70 mm[Hg] Layo Sherwin DO Work Phone: [facility] 12-06-2024 08:33-0400 Systolic blood pressure 100 mm[Hg] Layo Sherwin DO Work Phone: [facility] 11-08-2024 14:59-0400 Body mass index (BMI) [Ratio] 35.59 kg/m2 Layo Sherwin DO Work Phone: [facility] 11-08-2024 14:59-0400 Body weight 91.13 kg Layo Sherwin DO Work Phone: [facility] 11-08-2024 14:59-0400 Diastolic blood pressure 80 mm[Hg] Layo Sherwin DO Work Phone: [facility] 11-08-2024 14:59-0400 Systolic blood pressure 122 mm[Hg] Layo Sherwin DO Work Phone: [facility] 10-17-2024 13:08-0400 Body mass index (BMI) [Ratio] 35.52 kg/m2 Layo Sherwin DO Work Phone: [facility] 10-17-2024 13:08-0400 Body weight 90.95 kg Layo Sherwin DO Work Phone: [facility] 10-17-2024 13:08-0400 Diastolic blood pressure 82 mm[Hg] Layo Sherwin DO Work Phone: [facility] 10-17-2024 13:08-0400 Systolic blood pressure 126 mm[Hg] Layo Sherwin DO Work Phone: [facility] 10-11-2024 14:41-0400 Body mass index (BMI) [Ratio] 35.22 kg/m2 Layo Sherwin DO Work Phone: [facility] 10-11-2024 14:41-0400 Body weight 90.17 kg Layo Sherwin DO Work Phone: [facility] 10-11-2024 14:41-0400 Diastolic blood pressure 74 mm[Hg] Layo Sherwin DO Work Phone: [facility] 10-11-2024 14:41-0400 Systolic blood pressure 112 mm[Hg] Layo Sherwin DO Work Phone: [facility] 09-06-2024 15:31-0400 Body mass index (BMI) [Ratio] 33.17 kg/m2 Brandy SEARS Work Phone: [facility] 09-06-2024 15:31-0400 Body weight 84.94 kg Brandy SEARS Work Phone: [facility] 05-06-2025 15:31-0400 Diastolic blood pressure 82 mm[Hg] Brandy SEARS Work Phone: [facility] 09-06-2024 15:31-0400 Systolic blood pressure 110 mm[Hg] Brandy SEARS Work Phone: [facility] 08-08-2024 13:08-0400 Body mass index (BMI) [Ratio] 32.2 kg/m2 Layo Sherwin DO Work Phone: [facility] 08-08-2024 13:08-0400 Body weight 82.46 kg Layo Sherwin DO Work Phone: [facility] 08-08-2024 13:08-0400 Diastolic blood pressure 64 mm[Hg] Layo Sherwin DO Work Phone: [facility] 08-08-2024 13:08-0400 Systolic blood pressure 100 mm[Hg] Layo Sherwin DO Work Phone: [facility] 07-29-2024 09:53-0400 Body mass index (BMI) [Ratio] 31.18 kg/m2 Nom Nurse [facility] 07-29-2024 09:53-0400 Body weight 79.83 kg [facility] Nurse [facility] 07-29-2024 09:53-0400 Diastolic blood pressure 72 mm[Hg] [facility] Nurse [facility] 07-29-2024 09:53-0400 Systolic blood pressure 118 mm[Hg] Nom Nurse [facility] 04-06-2024 14:04-0500 Blood Pressure Location [facility]oryly [facility] 04-06-2024 14:04-0500 Diastolic blood pressure 74 mm[Hg] Mallory Juventino [facility] 04-06-2024 14:04-0500 Heart rate 80 /min Mallory Juventino [facility] 04-06-2024 14:04-0500 SaO2% (BldA) [Mass fraction] 100 % Malloryly SethiJuventino [facility] 04-06-2024 14:04-0500 Systolic blood pressure 108 mm[Hg] Mallory Jauregui [facility] 03-22-2024 10:45-0500 Diastolic blood pressure 62 mm[Hg] Juan Chavarria MD Work Phone: [facility] 03-22-2024 10:45-0500 Heart rate 65 /min Juan Chavarria MD Work Phone: [facility] 03-22-2024 10:45-0500 Respiratory rate 17 /min Juan Chavarria MD Work Phone: [facility] 03-22-2024 10:45-0500 SaO2% (BldA) [Mass fraction] 100 % Juan Chavarria MD Work Phone: [facility] 03-22-2024 10:45-0500 Systolic blood pressure 94 mm[Hg] Juan Chavarria MD Work Phone: [facility] 03-22-2024 09:45-0500 Body temperature 97.3 [degF] Juan Chavarria MD Work Phone: [facility] 03-22-2024 08:29-0500 Body height 160 cm Juan Chavarria MD Work Phone: [facility] 03-22-2024 08:29-0500 Body mass index (BMI) [Ratio] 29.25 kg/m2 Juan Chavarria MD Work Phone: [facility] 03-22-2024 08:29-0500 Body weight 74.9 kg Juan Chavarria MD Work Phone: [facility] 02-23-2024 09:49-0400 Body temperature 97.7 [degF] Juan Chavarria MD Work Phone: [facility] 02-23-2024 09:49-0400 Diastolic blood pressure 65 mm[Hg] Juan Chavarria MD Work Phone: [facility] 02-23-2024 09:49-0400 Heart rate 94 /min Juan Chavarria MD Work Phone: [facility] 02-23-2024 09:49-0400 Respiratory rate 22 /min Juan Chavarria MD Work Phone: [facility] 02-23-2024 09:49-0400 SaO2% (BldA) [Mass fraction] 100 % Juan Chavarria MD Work Phone: [facility] 02-23-2024 09:49-0400 Systolic blood pressure 102 mm[Hg] Juan Chavarria MD Work Phone: [facility] 02-23-2024 07:27-0400 Body height 160 cm Juan Chavarria MD Work Phone: [facility] 02-23-2024 07:27-0400 Body mass index (BMI) [Ratio] 29.41 kg/m2 Juan Chavarria MD Work Phone: [facility] 02-23-2024 07:27-0400 Body weight 75.3 kg Juan Chavarria MD Work Phone: [facility] 01-28-2024 10:31-0400 Diastolic blood pressure 59 mm[Hg] Leigh Ann Tuttle MD Work Phone: [facility] 01-28-2024 10:31-0400 Heart rate 71 /min Leigh Ann Tuttle MD Work Phone: [facility] 01-28-2024 10:31-0400 Respiratory rate 20 /min Leigh Ann Tuttle MD Work Phone: [facility] 01-28-2024 10:31-0400 SaO2% (BldA) [Mass fraction] 100 % Leigh Ann Tuttle MD Work Phone: [facility] 01-28-2024 10:31-0400 Systolic blood pressure 101 mm[Hg] Leigh Ann Tuttle MD Work Phone: [facility] 01-28-2024 09:31-0400 Body temperature 98.1 [degF] Leigh Ann Tuttle MD Work Phone: [facility] 01-28-2024 08:48-0400 Body height 160 cm Leigh Ann Tuttle MD Work Phone: [facility] 01-28-2024 08:48-0400 Body mass index (BMI) [Ratio] 29.21 kg/m2 Leigh Ann Tuttle MD Work Phone: [facility] 01-28-2024 08:48-0400 Body weight 74.8 kg Leigh Ann Tuttle MD Work Phone: [facility] 01-14-2024 10:52-0400 Body mass index (BMI) [Ratio] 29.43 kg/m2 Brandy Sheehan PA Work Phone: [facility] 01-14-2024 10:52-0400 Body weight 75.35 kg Brandy Sissy PA Work Phone: [facility] 01-14-2024 10:52-0400 Diastolic blood pressure 70 mm[Hg] Brandy [place] PA Work Phone: [facility] 01-14-2024 10:52-0400 Systolic blood pressure 120 mm[Hg] Brandy Sissy PA Work Phone: [facility] 12-28-2023 10:09-0400 Body height 160 cm Juan Chavarria MD Work Phone: [facility] 12-28-2023 10:09-0400 Body mass index (BMI) [Ratio] 30.11 kg/m2 Juan Chavarria MD Work Phone: [facility] 12-28-2023 10:09-0400 Body weight 77.11 kg Juan Chavarria MD Work Phone: [facility] [facility] 12-28-2023 10:09-0400 Diastolic blood pressure 81 mm[Hg] Juan Chavarria MD Work Phone: [facility] 12-28-2023 10:09-0400 Heart rate 62 /min Juan Chavarria MD Work Phone: [facility] 12-28-2023 10:09-0400 Systolic blood pressure 119 mm[Hg] Juan Chavarria MD Work Phone: [facility] 2023 08:46-0400 Body height 160 cm Trish Thorpe RADIATION THERAPY TECHNICIAN-REAL TIME OPERATOR Work Phone: [facility] 2023 08:46-0400 Body mass index (BMI) [Ratio] 29.23 kg/m2 Trish Thorpe RADIATION THERAPY TECHNICIAN-REAL TIME OPERATOR Work Phone: [facility] 2023 08:46-0400 Body weight 74.84 kg Trish Thorpe RADIATION THERAPY TECHNICIAN-REAL TIME OPERATOR Work Phone: [facility] 2023 08:46-0400 Diastolic blood pressure 67 mm[Hg] Trish Thorpe RADIATION THERAPY TECHNICIAN-REAL TIME OPERATOR Work Phone: [facility] 2023 08:46-0400 Heart rate 72 /min Trish Thorpe RADIATION THERAPY TECHNICIAN-REAL TIME OPERATOR Work Phone: [facility] 2023 08:46-0400 Systolic blood pressure 122 mm[Hg] Trish Thorpe RADIATION THERAPY TECHNICIAN-REAL TIME OPERATOR Work Phone: [facility] 10-02-2023 11:14-0400 Blood Pressure Location Princess Rapp [facility] 10-02-2023 11:14-0400 Body temperature 98.24 [degF] Princess Rapp [facility] 10-02-2023 11:14-0400 Diastolic blood pressure 66 mm[Hg] Princess Rapp [facility] 10-02-2023 11:14-0400 Heart rate 65 /min Princess Rapp [facility] 10-02-2023 11:14-0400 SaO2% (BldA) [Mass fraction] 98 % Princess Rapp [facility] 10-02-2023 11:14-0400 Systolic blood pressure 118 mm[Hg] Princess Rapp [facility] 08-27-2023 17:44-0400 Blood Pressure Location Princess Rapp [facility] 08-27-2023 17:44-0400 Body temperature 98.06 [degF] Princess Rapp [facility] 08-27-2023 17:44-0400 Diastolic blood pressure 76 mm[Hg] Princess Rapp [facility] 08-27-2023 17:44-0400 Heart rate 85 /min Princess Rapp [facility] 08-27-2023 17:44-0400 Respiratory rate 14 /min Princess Rapp [facility] 08-27-2023 17:44-0400 SaO2% (BldA) [Mass fraction] 99 % Princess Rapp [facility] 08-27-2023 17:44-0400 Systolic blood pressure 110 mm[Hg] Princess Rapp [facility] 02-19-2023 07:41-0400 Body temperature 97.7 [degF] Princess Rapp [facility] 02-19-2023 07:41-0400 Diastolic blood pressure 70 mm[Hg] Princess Rapp [facility] 02-19-2023 07:41-0400 Heart rate 81 /min Princess Rapp [facility] 02-19-2023 07:41-0400 SaO2% (BldA) [Mass fraction] 99 % Princess Rapp [facility] 02-19-2023 07:41-0400 Systolic blood pressure 110 mm[Hg] Princess Rapp [facility] 07-24-2021 16:57-0400 Blood Pressure Location Leigh Ann Covington [facility] 07-24-2021 16:57-0400 Body temperature 97.7 [degF] Leigh Ann Covington [facility] 07-24-2021 16:57-0400 Diastolic blood pressure 68 mm[Hg] Leigh Ann Bojorquezell [facility] 07-24-2021 16:57-0400 Heart rate 88 /min Leigh Ann Bojorquezell [facility] 07-24-2021 16:57-0400 SaO2% (BldA) [Mass fraction] 99 % Leigh Ann Bojorquezell [facility] 07-24-2021 16:57-0400 Systolic blood pressure 122 mm[Hg] Leigh Ann Bojorquezell [facility] Encounters Encounter Date Encounter Type Care Provider Facility Start: 01-24-2025 End: 01-24-2025 Clinisync Result Encounter Layo Sherwin DO Work Phone: [facility] Unsolicited Start: 01-24-2025 End: 01-24-2025 Clinisync Result Encounter Layo Sherwin DO Work Phone: [facility] Unsolicited Start: 01-18-2025 End: 01-18-2025 Clinisync Result Encounter Layo Sherwin DO Work Phone: [facility] Unsolicited Start: 01-18-2025 End: 01-18-2025 Clinisync Result Encounter Laoy Sherwin DO Work Phone: [facility] Unsolicited Start: 01-16-2025 End: 01-16-2025 flow sheet Layo Sherwin DO Work Phone: [facility] Comment on above: 33 weeks gestation o f ([facility]); Third trimester ([facility]); Group B streptococcal infection; resulting from in vitro fertilization in first trimester ([facility]) Start: 01-16-2025 End: 01-16-2025 ambulatory LAYO SHERWIN Not Available Start: 01-16-2025 End: 01-16-2025 Bamboo flowsheet Layo Sherwin DO Work Phone: [facility] Start: 01-16-2025 End: 01-16-2025 Bamboo flowsheet Layo Sherwin DO Work Phone: [facility] Start: 01-10-2025 End: 01-10-2025 Clinisync Result Encounter Layo Sherwin DO Work Phone: [facility] Unsolicited Start: 01-10-2025 End: 01-10-2025 Clinisync Result Encounter Layo Sherwin DO Work Phone: [facility] Unsolicited Start: 01-03-2025 End: 01-03-2025 Bamboo flowsheet Layo Sherwin DO Work Phone: [facility] Start: 01-03-2025 End: 01-03-2025 Bamboo flowsheet Layo Sherwin DO Work Phone: [facility] Start: 01-03-2025 End: 01-03-2025 flow sheet Layo Sherwin DO Work Phone: SHIRA ZACARIAS Comment on above: Third trimester preg rehan ([facility]); 31 weeks gestation of ([facility]); resulting from in vitro fertilization in third trimester ([facility]) Start: 01-03-2025 End: 01-03-2025 ambulatory LAYO SHERWIN Not Available Start: 12-19-2024 End: 12-19-2024 flow sheet Layo Sherwin DO Work Phone: [facility] Comment on above: 29 weeks gestation o f ([facility]); Third trimester ([facility]); Leukocytes in urine; Other microscopic hematuria Start: 12-19-2024 End: 12-19-2024 ambulatory LAYO SHERWIN Not Available Start: 12-06-2024 End: 12-06-2024 Bamboo flowsheet Layo Sherwin DO Work Phone: [facility] Start: 12-06-2024 End: 12-06-2024 Bamboo flowsheet Layo Sherwin DO Work Phone: [facility] Start: 12-06-2024 End: 12-06-2024 Clinisync Result Encounter Layo Sherwin DO Work Phone: [facility] Unsolicited Start: 12-06-2024 End: 12-06-2024 flow sheet Layo Sherwin DO Work Phone: [facility] Comment on above: 27 weeks gestation o f ([facility]); Second trimester ([facility]) Start: 12-06-2024 End: 12-06-2024 ambulatory LAYO SHERWIN Not Available Start: 11-26-2024 End: 11-26-2024 Clinisync Result Encounter Layo Sherwin DO Work Phone: [facility] Unsolicited Start: 11-26-2024 End: 11-26-2024 Clinisync Result Encounter Layo Sherwin DO Work Phone: [facility] Unsolicited Start: 11-08-2024 End: 11-08-2024 flow sheet Layo Sherwin DO Work Phone: [facility] Comment on above: Second trimester pre gnancy ([facility]); 26 weeks gestation of ([facility]); Diabetes mellitus screening Start: 11-08-2024 End: 11-08-2024 [...] pain without sciatica (Primary Dx); Second trimester ([facility]); 20 weeks gestation of ([facility]) Start: 10-17-2024 End: 10-17-2024 ambulatory LAYO SHERWIN [...] Ultrasound 1 Valeria Hay Comment on above: ([facility]) Start: 10-07-2024 End: 10-07-2024 ambulatory [facility] Start: 09-22-2024 End: 09-22-2024 ambulatory BRANDY [...] End: 07-11-2024 Patient encounter procedure Donya Abernathy RADIATION THERAPY TECHNICIAN-REAL TIME OPERATOR Work Phone: Valeria Hay Comment on above: Fertility testing (P rimary Dx); Encounter to determine viability of , single or unspecified fetus Start: 07-11-2024 End: 07-11-2024 ambulatory [facility] Melly [facility] Start: 06-30-2024 End: 06-30-2024 ambulatory [facility] Start: 06-23-2024 End: 06-23-2024 ambulatory [facility] Start: 06-23-2024 End: 06-23-2024 ambulatory [facility] Start: 06-13-2024 End: 06-13-2024 Subsequent hospital visit by physician Juan Chavarria MD Work Phone: Valeria Hay Comment on above: Encounter for assist ed reproductive fertility cycle Start: 06-13-2024 End: 06-13-2024 ambulatory JUAN CHAVARRIA [facility] Start: 06-07-2024 End: 06-07-2024 ambulatory [facility] Start: 06-06-2024 End: 06-06-2024 [facility] Start: 06-06-2024 End: 06-06-2024 Professional / ancillary services management Myles [id number] Kelsy Ultrasound [facility] Comment on above: Female infertility Start: 06-06-2024 End: 06-06-2024 [facility] Start: 05-23-2024 End: 05-23-2024 ambulatory [facility] Start: 04-06-2024 ambulatory Malolry Jauregui Faci lity:[facility] Start: 04-06-2024 End: 04-06-2024 Patient encounter procedure Mallory Jauregui [facility] Start: 03-22-2024 End: 03-22-2024 Subsequent hospital visit by physician Juan Chavarria MD Work Phone: [facility] Comment on above: Encounter for assist ed reproductive fertility cycle Start: 03-22-2024 End: 03-22-2024 ambulatory JUAN CHAVARRIA [facility] Start: 03-21-2024 End: 03-21-2024 [facility] Start: 03-20-2024 End: 03-20-2024 Professional / ancillary services management Mac [id number] Kelsy Ultrasound Valeria Hay Comment on above: Female infertility Start: 03-20-2024 End: 03-20-2024 ambulatory [facility] Start: 03-19-2024 End: 03-19-2024 Professional / ancillary services management Mac [id number] Kelsy Ultrasound Valeria Hay Comment on above: Female infertility Start: 03-19-2024 End: 03-19-2024 [facility] Start: 03-17-2024 End: 03-17-2024 ambulatory [facility] Start: 03-17-2024 End: 03-17-2024 Professional / ancillary services management Mac [id number] Kelsy Ultrasound Valeria Hay Comment on above: Female infertility Start: 03-17-2024 End: 03-17-2024 ambulatory [facility] Start: 03-15-2024 End: 03-15-2024 ambulatory [facility] Start: 03-15-2024 End: 03-15-2024 ambulatory [facility] Start: 03-15-2024 End: 03-15-2024 Professional / ancillary services management Mac [id number] Kelsy Ultrasound Valeria Hay Comment on above: Female infertility Start: 03-09-2024 End: 03-09-2024 ambulatory [facility] Start: 03-09-2024 End: 03-09-2024 Patient encounter status [facility] Start: 03-09-2024 End: 03-09-2024 Professional / ancillary services management Mac [id number] Kelsy Ultrasound Valeria Hay Comment on above: Female infertility; Pre-procedure lab exam Start: 03-09-2024 End: 03-09-2024 ambulatory [facility] Start: 02-23-2024 End: 02-23-2024 Subsequent hospital visit by physician Juan Chavarria MD Work Phone: [facility] Hay Comment on above: Encounter for assist ed reproductive fertility cycle Start: 02-23-2024 End: 02-23-2024 ambulatory JUAN CHAVARRIA [facility] Start: 02-22-2024 End: 02-22-2024 ambulatory [facility] Start: 02-21-2024 End: 02-21-2024 Professional / ancillary services management Mac [id number] Kelsy Ultrasound Valeria Hay Comment on above: Female infertility Start: 02-21-2024 End: 02-21-2024 ambulatory [facility] Start: 02-20-2024 End: 02-20-2024 ambulatory [facility] Start: 02-20-2024 End: 02-20-2024 Professional / ancillary services management Mac [id number] Kelsy Ultrasound [facility] Darío Hay Comment on above: Female infertility Start: 02-20-2024 End: 02-20-2024 ambulatory [facility] Start: 02-18-2024 End: 02-18-2024 ambulatory [facility] Start: 02-18-2024 End: 02-18-2024 Professional / ancillary services management Mac [id number] Kelsy Ultrasound [facility] Dar[facility] Hay Comment on above: Female infertility Start: 02-18-2024 End: 02-18-2024 ambulatory [facility] Start: 02-16-2024 End: 02-16-2024 Professional / ancillary services management Mac [id number] Kelsy Ultrasound [facility] Comment on above: Female infertility Start: 02-16-2024 End: 02-16-2024 ambulatory [facility] Start: 02-09-2024 End: 02-09-2024 Patient encounter status [facility] Start: 02-09-2024 End: 02-09-2024 Professional / ancillary services management Mac [id number] Kelsy Ultrasound [facility] Comment on above: Pre-procedure lab ex am; Female infertility Start: 02-09-2024 End: 02-09-2024 ambulatory [facility] Start: 02-02-2024 End: 02-02-2024 ambulatory [facility] Start: 01-28-2024 End: 01-28-2024 Subsequent hospital visit by physician Leigh Ann Tuttle MD Work Phone: [facility] Comment on above: Endometrial polyp Start: 01-28-2024 End: 01-28-2024 ambulatory LEIGH ANN TUTTLE [facility] Start: 01-25-2024 End: 01-25-2024 ambulatory [facility] Start: 01-25-2024 End: 01-25-2024 Encounter for preprocedural laboratory examination [facility] Start: 01-14-2024 End: 01-14-2024 Bamboo flowsheet Brandy Higginsbryant SEARS Work Phone: [facility] Start: 01-14-2024 End: 01-20-2024 Bamboo flowsheet Brandy Higginsbryant SEARS Work Phone: [facility] Start: 01-14-2024 End: 01-20-2024 Clinisync Result Encounter Brandy [place] PA Work Phone: [facility] External Department Unsolicited Start: 01-14-2024 End: 01-14-2024 Patient encounter procedure Brandy Higginsbryant SEARS Work Phone: [facility] Work Phone: Start: 01-14-2024 End: 01-14-2024 Periodic preventive med est patient 18-39 yrs Brandy Higginsbryant SEARS Work Phone: [facility] Comment on above: Well woman exam with routine gynecological exam Start: 12-28-2023 End: 12-28-2023 Patient encounter procedure Juan Chavarria MD Work Phone: [facility] Comment on above: Fertility testing [Z 31.41] (Primary Dx); 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 Start: 12-25-2023 End: 12-25-2023 ambulatory AFUA JULIAN [facility] Start: 2023 End: 2023 ambulatory TRISH THORPE [facility] Start: 2023 End: 2023 Patient encounter procedure Trish Thorpe RADIATION THERAPY TECHNICIAN-REAL TIME OPERATOR Work Phone: [facility] Comment on above: Encounter for screen ing for other viral diseases (Primary Dx); Encounter for Rh blood typing; Screening for STDs (sexually transmitted diseases); Genetic screening; Fertility testing; Female infertility associated with male factors Start: 2023 End: 2023 Patient encounter status Trish Thorpe RADIATION THERAPY TECHNICIAN-REAL TIME OPERATOR Work Phone: [facility] Work Phone: Start: 2023 End: 2023 ambulatory TRISH Polo [facility] Start: 2023 End: 2023 Encounter for blood typing TRISH Polo [facility] Start: 10-21-2023 ambulatory Princess Rapp Facil ity:[facility] Start: 10-02-2023 End: 10-02-2023 ambulatory Princess Rapp Facility:[facility] Start: 10-02-2023 End: 10-02-2023 Patient encounter procedure Princess Rapp [facility] Start: 08-27-2023 End: 08-27-2023 ambulatory Princess Rapp Facility:[facility] Start: 08-27-2023 End: 08-27-2023 Patient encounter procedure Princess Rapp [facility] Start: 03-25-2023 End: 03-25-2023 Patient encounter procedure Princess Rapp [facility] Start: 02-19-2023 End: 02-19-2023 Patient encounter procedure Princess Rapp [facility] Start: 07-26-2022 End: 07-27-[address] LAYO COURTNEY . Facility:[facility] Start: 07-23-2022 End: 07-23-[address] LAYO COURTNEY . Facility:[facility] Start: 07-24-2021 End: 07-24-2021 Patient encounter procedure Leigh Ann Covington [facility] Procedures Date Procedure Procedure Detail Performing Clinician Start: 01-24-2025 US OB BPP W NON-STRESS Layo Sherwin DO Work Phone: Start: 01-18-2025 US OB BPP W NON-STRESS [...] uterus w/det ail kehinde 1st gestation Layo Vinh Sherwin DO Work Phone: Start: 10-07-2024 Us [...] nonobstetr ic image dcmtn limited/f/u Donya Abernathy RADIATION THERAPY TECHNICIAN-REAL TIME OPERATOR Work Phone: Start: 03-22-2024 Follicle puncture oo cyte retrieval any method Donya Abernathy RADIATION THERAPY TECHNICIAN-REAL TIME OPERATOR Work Phone: Start: 03-20-2024 Us pelvic nonobstetr ic image dcmtn limited/f/u Donya Abernathy RADIATION THERAPY TECHNICIAN-REAL TIME OPERATOR Work Phone: Start: 03-20-2024 Assay of estradiol America Chavez RADIATION THERAPY TECHNICIAN-REAL TIME OPERATOR Work Phone: Start: 03-19-2024 Us pelvic nonobstetr ic image dcmtn limited/f/u Donya Abernathy RADIATION THERAPY TECHNICIAN-REAL TIME OPERATOR Work Phone: Start: 03-17-2024 Us pelvic nonobstetr ic image dcmtn limited/f/u Donya Abernathy RADIATION THERAPY TECHNICIAN-REAL TIME OPERATOR Work Phone: Start: 03-17-2024 Assay of estradiol Donya Abernathy RADIATION THERAPY TECHNICIAN-REAL TIME OPERATOR Work Phone: Start: 03-15-2024 Us pelvic nonobstetr ic image dcmtn limited/f/u Donya Abernathy RADIATION THERAPY TECHNICIAN-REAL TIME OPERATOR Work Phone: Start: 03-15-2024 Assay of estradiol Donya Abernathy RADIATION THERAPY TECHNICIAN-REAL TIME OPERATOR Work Phone: Start: 03-09-2024 Us pelvic nonobstetr ic image dcmtn limited/f/u America R Dwight RADIATION THERAPY TECHNICIAN-REAL TIME OPERATOR Work Phone: Start: 03-09-2024 Blood count hematocrit Donya Abernathy RADIATION THERAPY TECHNICIAN-REAL TIME OPERATOR Work Phone: Start: 02-23-2024 Follicle puncture oo cyte retrieval any method Beth Warren MD Work Phone: Start: 02-21-2024 Us pelvic nonobstetr ic image dcmtn limited/f/u America R Dwight RADIATION THERAPY TECHNICIAN-REAL TIME OPERATOR Work Phone: Start: 02-21-2024 Gonadotropin luteini zing hormone Beti Warren MD Work Phone: Start: 02-18-2024 Us pelvic nonobstetr ic image dcmtn limited/f/u America R Dwight RADIATION THERAPY TECHNICIAN-REAL TIME OPERATOR Work Phone: Start: 02-18-2024 Assay of estradiol America R Dwight RADIATION THERAPY TECHNICIAN-REAL TIME OPERATOR Work Phone: Start: 02-16-2024 Assay of estradiol America R Dwight RADIATION THERAPY TECHNICIAN-REAL TIME OPERATOR Work Phone: Start: 02-09-2024 Blood count hematocrit America R Dwight RADIATION THERAPY TECHNICIAN-REAL TIME OPERATOR Work Phone: Start: 02-09-2024 Us pelvic nonobstetr ic image dcmtn limited/f/u America R Dwight RADIATION THERAPY TECHNICIAN-REAL TIME OPERATOR Work Phone: Start: 01-28-2024 Hysteroscopy bx endometrium&/polypc w/wo d&c Juan E Aura MD Work Phone: Start: 01-28-2024 Urine test visual color cmprsn meths Leigh Ann Tuttle MD Work Phone: Start: 01-14-2024 IGP,APTIMA HPV,AGE GDLN Brandy Sheehan PA Work Phone: Start: 01-14-2024 Microscopic observat ion [Identifier] in Cervix by Cyto stain Leigh Ann Tuttle MD Work Phone: Start: 11-15-2015 Right Knee Arthrosco py with Medial Meniscal Repair Leigh Ann Covington Start: 07-28-2013 right knee anterior cruciate ligament allograft reconstruction with imcu-ncpzyl-tphl, debridment medial meniscus tear, patellofemoral chondroplasty-Grade I-II Leigh Ann Covington Tonsillectomy Leigh Ann Covington tubes in the ears Leigh Annjuan bartholomew Plan of Treatment Date Care Activity Detail Author Start: 2072 RSV High Risk: (Elderly (60+) or Population) (1 - 1-dose 75+ series) RSV High Risk: (Elderly (60+) or Population) (1 - 1-dose 75+ series) [facility] Start: 12-12-2047 Zoster Vaccines (1 of 2) Zoster Vaccines (1 of 2) [facility] Start: 01-13-2027 Screening for malignant neoplasm of cervix [facility] Start: 01-31-2025 End: 01-31-2025 Patient encounter procedure 01/31/2025 1:50 PM EDT Routine SHIRA ZACARIAS [address] [place] [address] Maria M Guerrero, MOBILE EQUIPMENT SERVICER [address] [place] [address] SHIRA ZACARIAS Start: 01-30-2025 End: 01-30-2025 Patient encounter procedure 01/30/2025 3:50 PM EDT Routine [facility] [address] [facility] [place] [phone] Maira M Guerrero, MOBILE EQUIPMENT SERVICER [address] [facility] [place] [phone] [facility] Start: 01-16-2025 End: 01-16-2025 Patient encounter procedure [facility] Comment on above: Arrived Start: 01-03-2025 End: 07-03-2025 US biophysical profile w non stress test US biophysical profile w non stress test Imaging Routine resulting from in vitro fertilization in third trimester ([facility]) Expected: 01/03/2025 (Approximate), Expires: 07/03/2025 [facility] Work Phone: Comment on above: Expected: 01/03/2025 (Approximate), Expi res: 07/03/2025 Start: 01-03-2025 End: 01-03-2025 Patient encounter procedure [facility] Comment on above: Arrived Start: 01-02-2025 Influenza vaccination Influenza Vaccine (Season Ended) [facility] Start: 12-19-2024 End: 12-19-2024 Professional / ancillary services management 12/19/2024 9:30 AM EDT Ancillary Procedure [facility] [address] [place] [phone] [facility] Start: 12-19-2024 End: 12-19-2024 Patient encounter procedure [facility] Start: 12-06-2024 End: 12-06-2024 Patient encounter procedure [facility] Comment on above: Arrived Start: 11-08-2024 End: 11-08-2024 Patient encounter procedure 11/08/2024 2:40 PM EDT Routine [facility] [address] [place] [phone] Layo Courtney DO [address] [place] [address] [facility] Start: 11-08-2024 End: 11-08-2025 [...] Expected: 11/08/2024 (Approximate), Expires: 11/08/2025 [facility] Comment on above: Expected: 11/08/2024 (Approximate), Expi res: 11/08/2025 Start: 10-17-2024 End: 10-17-2024 Patient encounter procedure 10/17/2024 1:00 PM EDT Routine [facility] [address] [phone] Layo Courtney, DO [address] [facility] [place] [address] Arrived [facility] Comment on above: [...] Routine Pruritus Expected: 10/11/2024 (Approximate), Expires: 10/11/2025 [facility] Comment on above: Expected: 10/11/2024 [...] Second trimester Expected: 09/06/2024 (Approximate), Expires: 11/06/2024 [facility] Comment on above: Expected: 09/06/2024 (Approximate), Expi res: 11/06/2024 Start: 09-06-2024 End: 12-07-2024 US for US OB 14+ weeks anatomy scan Imaging Routine Screening, , for anatomic survey Expected: 09/06/2024, Expires: 12/07/2024 [facility] Comment on above: Expected: 09/06/2024, Expires: Start: 08-08-2024 End: 08-08-2024 Patient encounter procedure [facility] Comment on above: Arrived Start: 07-29-2024 End: 07-29-2025 ABO/Rh ABO/Rh Lab Routine Missed menses , unspecified gestational age Expected: 07/29/2024 (Approximate), Expires: 07/29/2025 [facility] Comment on above: Expected: 07/29/2024 (Approximate), Expi res: 07/29/2025 Start: 07-29-2024 End: 07-29-2025 Blood type and Indirect antibody screen panel - Blood Type and screen Lab Routine Missed menses , unspecified gestational age Expected: 07/29/2024 (Approximate), Expires: 07/29/2025 [facility] Work Phone: Comment on above: Expected: 07/29/2024 (Approximate), Expi res: 07/29/2025 Start: 07-29-2024 End: 07-29-2025 Drugs of abuse panel - Urine by Screen method Rapid drug screen, urine Lab Routine , unspecified gestational age Encounter for supervision of normal first in first trimester Expected: 07/29/2024 (Approximate), Expires: 07/29/2025 [facility] Comment on above: Expected: 07/29/2024 (Approximate), Expi res: 07/29/2025 Start: 07-11-2024 End: 07-11-2025 Progesterone [Mass/volume] in Serum or Plasma Progesterone Lab Routine Fertility testing Expected: 07/11/2024 (Approximate), Expires: 07/11/2025 [facility] Work Phone: Comment on above: Expected: 07/11/2024 (Approximate), Expi res: 07/11/2025 Start: 06-23-2024 Orders Only 06/23/2024 Orders Only Valeria Hay [address] [address] Ira Lopez, MISHEL Encounter for test, result unknown [facility] Comment on above: Encounter for test, result unk nown Start: 03-20-2024 End: 03-20-2025 Lutropin [Units/volume] in Serum or Plasma Luteinizing Hormone Lab STAT Female infertility Expected: 03/20/2024 (Approximate), Expires: 03/20/2025 [facility] Work Phone: Comment on above: Expected: 03/20/2024 (Approximate), Expi res: 03/20/2025 Start: 03-20-2024 End: 03-20-2025 Progesterone [Mass/volume] in Serum or Plasma Progesterone Lab STAT Female infertility Expected: 03/20/2024 (Approximate), Expires: 03/20/2025 [facility] Work Phone: Comment on above: Expected: 03/20/2024 (Approximate), Expi res: 03/20/2025 Start: 03-20-2024 End: 03-20-2024 Professional / ancillary services management 03/20/2024 8:00 AM EST Ancillary Procedure [facility] [address] [place] [phone] [facility] Start: 03-19-2024 End: 03-19-2024 Professional / ancillary services management 03/19/2024 8:30 AM EST Ancillary Procedure [facility] [address] [place] [phone] [facility] Start: 03-17-2024 End: 03-17-2025 Estradiol (E2) [Mass/volume] in Serum or Plasma Estradiol Lab STAT Female infertility Expected: 03/17/2024 (Approximate), Expires: 03/17/2025 [facility] Work Phone: Comment on above: Expected: 03/17/2024 (Approximate), Expi res: 03/17/2025 Start: 03-17-2024 End: 03-17-2025 Progesterone [Mass/volume] in Serum or Plasma [facility] Work Phone: Comment on above: Expected: 03/17/2024 (Approximate), Expi res: 03/17/2025 Start: 03-17-2024 End: 03-17-2024 Professional / ancillary services management 03/17/2024 6:45 AM EST Ancillary Procedure [facility] [address] [place] [address] [facility] Start: 03-15-2024 End: 03-15-2024 Professional / ancillary services management 03/15/2024 6:45 AM EST Ancillary Procedure Valeria Hay [address] [place] [phone] Valeria Hay Start: 03-09-2024 End: 03-09-2024 Professional / ancillary services management 03/09/2024 7:15 AM EST Ancillary Procedure Valeria Hay [address] [place] [phone] Valeria Hay Start: 02-23-2024 End: 02-23-2024 Patient encounter procedure 02/23/2024 8:30 AM EDT Appointment Valeria Hya [address] [place], [place] [phone] Juan Chavarria MD [address] [place], [place] [id number] [place] [id number] [address] Department of Anesthesiology [place] [address] [facility] Start: 02-21-2024 End: 02-21-2024 Professional / ancillary services management 02/21/2024 8:30 AM EDT Ancillary Procedure [facility] [address] [place] [phone] Valeria Hay Start: 02-20-2024 End: 02-17-2025 Estradiol (E2) [Mass/volume] in Serum or Plasma Estradiol Lab STAT Female infertility Expected: 02/20/2024 (Approximate), Expires: 02/17/2025 [facility] Service [facility] Work Phone: Comment on above: Expected: 02/20/2024 (Approximate), Expi res: 02/17/2025 Start: 02-20-2024 End: 02-17-2025 Progesterone [Mass/volume] in Serum or Plasma Progesterone Lab STAT Female infertility Expected: 02/20/2024 (Approximate), Expires: 02/17/2025 [facility] Work Phone: Comment on above: Expected: 02/20/2024 (Approximate), Expi res: 02/17/2025 Start: 02-20-2024 End: 02-20-2024 Professional / ancillary services management 02/20/2024 8:30 AM EDT Ancillary Procedure [facility] [address] [place] [address] [facility] Start: 02-18-2024 End: 02-18-2024 Professional / ancillary services management 02/18/2024 7:45 AM EDT Ancillary Procedure [facility] [address] [place] [address] [facility] Start: 02-16-2024 End: 02-16-2024 Professional / ancillary services management 02/16/2024 7:15 AM EDT Ancillary Procedure [facility] [address] [place] [address] [facility] Start: 02-09-2024 End: 02-09-2024 Professional / ancillary services management 02/09/2024 7:15 AM EDT Ancillary Procedure [facility] [address] [place] [address] [facility] Start: 01-14-2024 End: 01-14-2024 Patient encounter procedure 01/14/2024 11:00 AM EDT Office Visit [facility] [address] [place] [phone] Brandy Sheehan PA [address] [place] [address] Arrived [facility] Comment on above: Arrived Start: 01-03-2024 COVID-19 Vaccine ( season) COVID-19 Vaccine () [facility] Start: 01-03-2024 COVID-19 Vaccine ( season) COVID-19 Vaccine ( season) [facility] Start: 01-03-2024 Influenza vaccination Influenza Vaccine (#1) [facility] Start: 12-25-2023 End: 12-25-2023 Telemedicine consultation with patient 12/25/2023 9:00 AM EDT Telemedicine Clinical Support [facility] [address] [place] [phone] Afua Julian I, LGC [address] [facility] [place] [address] [facility] Start: 2023 End: 12-10-2024 Chlamydia trachomatis and Neisseria gonorrhoeae DNA [Identifier] in Unspecified specimen by EDELMIRA with probe detection [facility] Work Phone: Comment on above: Expected: 2023 (Approximate), Expi res: 12/10/2024 Start: 2023 End: 12-10-2024 Hepatitis B virus surface Ag [Presence] in Serum or Plasma by Immunoassay [facility] Work Phone: Comment on above: Expected: 2023 (Approximate), Expi res: 12/10/2024 Start: 2023 End: 12-10-2024 Hepatitis C virus Ab [Presence] in Serum [facility] Work Phone: Comment on above: Expected: 2023 (Approximate), Expi res: 12/10/2024 Start: 2023 End: 12-10-2024 HIV 1+2 Ab+HIV1 p24 Ag [Presence] in Serum or Plasma by Immunoassay [facility] Work Phone: Comment on above: Expected: 2023 (Approximate), Expi res: 12/10/2024 Start: 2023 End: 12-10-2024 Rubella virus IgG Ab [Units/volume] in Serum [facility] Work Phone: Comment on above: Expected: 2023 (Approximate), Expi res: 12/10/2024 Start: 2023 End: 12-10-2024 Treponema pallidum IgG+IgM Ab [Presence] in Serum by Immunoassay [facility] Work Phone: Comment on above: Expected: 2023 (Approximate), Expi res: 12/10/2024 Start: 2023 End: 12-10-2024 Varicella zoster virus IgG Ab [Presence] in Serum by Immunoassay [facility] Work Phone: Comment on above: Expected: 2023 (Approximate), Expi res: 12/10/2024 Start: 01-02-2023 COVID-19 Vaccine (2022- season) COVID-19 Vaccine ( season) [facility] Start: 12-21-2019 DTaP/Tdap/Td Vaccines (2 - Td or Tdap) DTaP/Tdap/Td Vaccines (2 - Td or Tdap) [facility] Start: 2018 Screening for malignant neoplasm of cervix [facility] Start: 2016 Hepatitis B Vaccines (1 of 3 - 19+ 3-dose series) Hepatitis B Vaccines (1 of 3 - 19+ 3-dose series) [facility] Start: 12-12-2015 Hepatitis C screening Hepatitis C Screening [facility] Start: 2012 HPV Vaccines (1 - 3-dose series) HPV Vaccines (1 - 3-dose series) [facility] Start: 03-14-2010 Varicella vaccination Varicella Vaccines (2 of 2 - 2-dose childhood series) [facility] Start: 01-17-2010 MMR Vaccines (1 of 1 - Standard series) MMR Vaccines (1 of 1 - Standard series) [facility] Start: 1997 HIV screening HIV Screening [facility] Start: 1997 Lipid panel Lipid Panel [facility] Start: 1997 Yearly Adult Physical Yearly Adult Physical [facility] Bacteria identified in Urine by Culture Urine culture Microbiology Routine Missed menses Ordered: 07/29/2024 [facility] Comment on above: Ordered: 07/29/2024 Bacteria identified in Urine by Culture Urine culture Microbiology Routine Leukocytes in urine Other microscopic hematuria Ordered: 12/19/2024 [facility] [employer] Work Phone: Comment on above: Ordered: 12/19/2024 CBC W Auto Different ial panel - Blood CBC and differential Lab Routine Missed menses , unspecified gestational age Ordered: 07/29/2024 [facility] Comment on above: Ordered: 07/29/2024 CHLAMYDIA TRACHOMATI S (GENITO/STI) CHLAMYDIA TRACHOMATIS (GENITO/STI) Lab Routine STD exposure Ordered: 09/06/2024 [facility] Comment on above: Ordered: 09/06/2024 End: 02-23-2024 Choriogonadotropin ( test) [Presence] in Urine POCT , urine manually resulted Point of Care Testing Routine Once (Lab) for 1 Occurrences starting 02/23/2024 until 02/23/2024 [facility] Service [facility] Work Phone: Comment on above: Once (Lab) for 1 Occurrences starting until 02/23/2024 End: 03-22-2024 Choriogonadotropin ( test) [Presence] in Urine POCT , urine manually resulted Point of Care Testing Routine Once (Lab) for 1 Occurrences starting 03/22/2024 until 03/22/2024 [facility] Work Phone: Comment on above: Once (Lab) for 1 Occurrences starting until 03/22/2024 End: 06-13-2024 Choriogonadotropin ( test) [Presence] in Urine POCT , urine manually resulted Point of Care Testing Routine Once (Lab) for 1 Occurrences starting 06/13/2024 until 06/13/2024 [facility] Work Phone: Comment on above: Once (Lab) for 1 Occurrences starting until 06/13/2024 Cytology Cervical or vaginal smear or scraping study Pap Smear Pathology and Cytology Routine Well woman exam with routine gynecological exam Ordered: 01/14/2024 [facility] [employer] Work Phone: Comment on above: Ordered: 01/14/2024 Hemoglobin A1c/Hemoglobin.total in Blood Hemoglobin A1c Lab Routine Missed menses , unspecified gestational age Ordered: 07/29/2024 [facility] Comment on above: Ordered: 07/29/2024 Hepatitis B virus abrams rface Ag [Presence] in Serum or Plasma by Immunoassay Hepatitis B surface antigen Lab Routine Missed menses , unspecified gestational age Ordered: 07/29/2024 [facility] Comment on above: Ordered: 07/29/2024 Hepatitis C virus Ab [Presence] in Serum or Plasma by Immunoassay Hepatitis C antibody Lab Routine Missed menses , unspecified gestational age Ordered: 07/29/2024 [facility] Comment on above: Ordered: 07/29/2024 HIV-1/HIV-2 antigen/antibody combination immunoassay HIV-1 and HIV-2 antibodies Lab Routine Missed menses , unspecified gestational age Ordered: 07/29/2024 [facility] Comment on above: Ordered: 07/29/2024 Neisseria gonorrhoea e DNA [Presence] in Unspecified specimen by EDELMIRA with probe detection Neisseria gonorrhea DNA probe, direct Lab Routine STD exposure Ordered: 09/06/2024 [facility] Comment on above: Ordered: 09/06/2024 Reagin Ab [Presence] in Serum by RPR RPR Lab Routine Missed menses , unspecified gestational age Ordered: 07/29/2024 [facility] Comment on above: Ordered: 07/29/2024 KELSY US Pelvis Limite d Follicles - Follicle Studies Performed KELSY US Pelvis Limited Follicles - Follicle Studies Performed Imaging Routine Female infertility 02/16/2024 7:17 AM EDT [facility] Work Phone: KELSY US Pelvis Limite d Follicles - Follicle Studies Performed KELSY US Pelvis Limited Follicles - Follicle Studies Performed Imaging Routine Female infertility 02/20/2024 9:06 AM EDT [facility] Work Phone: Rubella antibody, IgG Rubella an tibody, IgG Lab Routine Missed menses , unspecified gestational age Ordered: 07/29/2024 [facility] Comment on above: Ordered: 07/29/2024 SURESWAB(R) ADVANCED VAGINITIS PLUS, TMA SURESWAB(R) ADVANCED VAGINITIS PLUS, TMA Pathology and Cytology Routine STD exposure Ordered: 09/06/2024 [facility] Work Phone: Comment on above: Ordered: 09/06/2024 End: 01-28-2024 Surgical pathology study [facility] Work Phone: Comment on above: Once (Lab) for 1 Occurrences starting until 01/28/2024, 1 completed Once (Lab) for 1 Occ urrences starting 01/28/2024 until 01/28/2024 Immunizations Immunization Date Immunization Notes Care Provider Fa cility 12-20-2009 meningococcal ACWY vaccine, unspecified formulation Princess Rapp [facility] 12-20-2009 tetanus toxoid, reduced diphtheria toxoid, and acellular pertussis vaccine, adsorbed Princesssourav Rapp [facility] 12-20-2009 varicella virus vaccine Princess Rapp [facility] NEGATED: Highlighted row has not occurred!04-06-2024 influenza virus vaccine, unspecified formulation Mallory Jauregui [facility] NEGATED: Highlighted row has not occurred!06-26-2021 influenza virus vaccine, unspecified formulation Leigh Ann Covington [facility] NEGATED: Highlighted row has not occurred!06-26-2021 SARS-CoV-2 (COVID-19) Ad26 vaccine, recombinant Leigh Ann Covington [facility] NEGATED: Highlighted row has not occurred!01-29-2021 influenza virus vaccine, unspecified formulation Leigh Ann Covington [facility] NEGATED: Highlighted row has not occurred!01-29-2021 SARS-CoV-2 (COVID-19) Ad26 vaccine, recombinant Leigh Ann Covington [facility] NEGATED: Highlighted row has not occurred!05-03-2019 influenza virus vaccine, live, attenuated, for intranasal use Leigh Ann Covington [facility] NEGATED: Highlighted row has not occurred!09-30-2018 influenza virus vaccine, unspecified formulation Leigh Ann Covington [facility] Payers Date Payer Category Payer Managed Care (Private) 1.2.8 [id number] 2022 Private Health Insurance [employer] [id number] 2022 Unknown [id number]. 1.13.647.2. 7.3.900893.315 2022 Unknown [id number] 1997 Unknown [id number] 2.16.840.1.666303.3.579.2. 593 1997 Unknown [id number] 2.16.840.1.210493.3.579.2. 593 1997 Unknown [id number] 2.16.840.1.398935.3.579.2. 727 1997 Unknown [id number] 2.16.840.1.174908.3.579.2. 727 1997 Unknown [id number] 2.16840.1.790263.3.579.2. 727 1997 Unknown [id number] 2.16840.1.774698.3.579.2. 72 1997 Unknown [id number] 2.16840.1.406022.3.579.2. 1242 1997 Unknown [id number] 2.16840.1.087882.3.579.2. 1242 1997 Unknown [id number] 2.16840.1.647052.3.579.2. 1242 1997 Unknown [id number] 2.840.1.587550.3.579.2. 1244 1997 Unknown [id number] 2.840.1.865919.3.579.2. 1244 1997 Unknown [id number] 2.840.1.276835.3.579.2. 1244 1997 Unknown [id number] 2.840.1.019087.3.579.2. 1244 1997 Unknown [id number] 2.840.1.208191.3.579.2. 1244 1997 Unknown [id number] 2840.1.384137.3.579.2. 1244 1997 Unknown [id number] 2.840.1.998518.3.579.2. 1244 1997 Unknown [id number] 2.16840.1.882305.3.579.2. 1244 1997 Unknown [id number] 2.16840.1.434687.3.579.2. 1244 1997 Unknown [id number] 2.16840.1.910307.3.579.2. 1244 1997 Unknown [id number] 2.16840.1.142690.3.579.2. 1244 1997 Unknown [id number] 2.16.840.1.965029.3.579.2. 1244 1997 Unknown [id number] 2.16.840.1.854236.3.579.2. 1244 1997 Unknown [id number] 2.16.840.1.642886.3.579.2. 1244 1997 Unknown [id number] 2.16.840.1.950813.3.579.2. 1244 1997 Unknown [id number] 2.16840.1.727816.3.579.2. 1244 1997 Unknown [id number] 2.16.840.1.226365.3.579.2. 1244 1997 Unknown [id number] 2.16840.1.149835.3.579.2. 1244 1997 Unknown [id number] 2.16840.1.082426.3.579.2. 1244 1997 Unknown [id number] 2.16840.1.131064.3.579.2. 1244 1997 Unknown [id number] 2.16840.1.372798.3.579.2. 1244 1997 Unknown [id number] 2.16840.1.676492.3.579.2. 1244 1997 Unknown [id number] 2.16840.1.120610.3.579.2. 1244 1997 Unknown [id number] 2.16840.1.998451.3.579.2. 1244 1997 Unknown [id number] 2.16840.1.006285.3.579.2. 1244 1997 Unknown [id number] 2.16840.1.967574.3.579.2. 1244 1997 Unknown [id number] 2.16.840.1.506371.3.579.2. 1244 1997 Unknown [id number] 2.16.840.1.085384.3.579.2. 1244 1997 Unknown [id number] 2.16.840.1.372792.3.579.2. 1244 1997 Unknown [id number] 2.16.840.1.022186.3.579.2. 1244 1997 Unknown [id number] 2.16.840.1.437130.3.579.2. 1244 1997 Unknown [id number] 2.840.1.786643.3.579.2. 1244 1997 Unknown [id number] 2.16840.1.816146.3.579.2. 1244 1997 Unknown [id number] 2.840.1.566655.3.579.2. 1244 1997 Unknown [id number] 2.840.1.900725.3.579.2. 1244 1997 Unknown [id number] 2.840.1.724781.3.579.2. 1244 1997 Unknown [id number] 2.16840.1.250918.3.579.2. 1244 1997 Unknown [id number] 2.16840.1.740593.3.579.2. 1258 1997 Unknown [id number] 2.16840.1.555919.3.579.2. 1258 1997 Unknown [id number] 2.16.840.1.882318.3.579.2. 1258 1997 Unknown [id number] 2.16840.1.797402.3.579.2. 1258 1997 Unknown [id number] 2.16840.1.078906.3.579.2. 1259 1997 Unknown [id number] 2.16.840.1.566913.3.579.2. 9 1997 Unknown [id number] 2.16.840.1.481916.3.579.2. 9 1997 Unknown [id number] 2.16.840.1.263899.3.579.2. 9 1997 Unknown [id number] 2.16.840.1.703860.3.579.2. 9 1997 Unknown [id number] 2.16.840.1.876025.3.579.2. 9 1997 Unknown [id number] 2.16.840.1.327814.3.579.2. 9 1997 Unknown [id number] 2.16.840.1.418907.3.579.2. 1259 1959 Unknown [id number] 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 Date Type Detail Facility Start: 07-24-2021 End: 03-05-2023 Tobacco smoking status Never smoked tobacco (finding) [facility] Tobacco smoking status Never [facility] Start: 01-28-2024 End: 07-29-2024 Sex Assigned At Female [facility] Start: 2023 Tobacco use and exposure Smokeless tobacco non-user [facility] Work Phone: Start: 01-28-2024 End: 06-23-2024 Alcoholic beverage intake Ex-drinker (finding) [facility] Work Phone: Start: 01-28-2024 End: 07-29-2024 History of Social function [facility] Work Phone: Start: 2023 Alcohol Comment Occassionally [facility] Work Phone: Start: 1997 Sex assigned at Not on file U [facility] Work Phone: Start: 12-01-2023 End: 10-07-2024 Exposure to SARS-CoV-2 (event) Not sure [facility] Start: 02-23-2024 End: 01-16-2025 Alcoholic beverage intake Current drinker of alcohol (finding) [facility] Work Phone: Start: 03-05-2023 Alcohol Comment Beer 1-2 times per m [facility] Start: 12-18-2023 End: 12-28-2023 Exposure to SARS-CoV-2 (event) Unable to assess [facility] Start: 06-08-2024 [facility] Procedure Code Equipment Code Equipment Origin al Text Equipment Identifier Dates [id number] Start: 03-01-2024 End: 03-09-2024 Functional Status Date Assessment Result Facility 04-06-2024 Functional Status N/A [facility] 10-02-2023 Functional Status N/A [facility] 08-27-2023 Functional Status N/A [facility] 02-19-2023 Functional Status N/A [facility] Clinical Notes 07-24-2021 to 01-16-2025 Maria M Guerrero NP - 01/16/2025 2:50 PM Megan Greer LPN - 01/03/2025 10:00 AM Max Barbosa LPN - 12/19/2024 10:00 AM ORION Tarango - 12/06/2024 8:30 AM Lois InstructionsLaboratory Note Date & Type Note Facility [...] ICD-10-CM 1. 33 weeks gestation of ([facility]) Z3A.33 POCT urinalysis dipstick manually resulted 2. Third trimester ([facility]) Z34.93 POCT urinalysis dipstick manually resulted 3. Group B streptococcal infection A49.1 4. resulting from in vitro fertilization in first trimester ([facility]) O09.811 Return OB: Patient presents today for [...] Layo Courtney DO documented in this encounter [facility] 01-03-2025 History of Present illness Narrative Reason [...] nursing note reviewed. Exam conducted with a easement man present. Vitals: Estimated body mass index is 39.47 kg/m as calculated from the following: Height as of 09/17/22: 5' 3 . Weight as of this encounter: 222 lb 12.8 oz. BP: 118/74 No LMP recorded. Patient is . ASSESSMENT & PLAN ICD-10-CM 1. Third trimester ([facility]) Z34.93 POCT urinalysis dipstick manually resulted 2. 31 weeks gestation of ([facility]) Z3A.31 POCT urinalysis dipstick manually resulted Return [...] Layo Courtney DO documented in this encounter [facility] 12-19-2024 History of Present illness Narrative Reason [...] nursing note reviewed. Exam conducted with a easement man present. Vitals: Estimated body mass index is 38.76 kg/m as calculated from the following: Height as of 09/17/22: 5' 3 . Weight as of this encounter: 218 lb 12.8 oz. BP: 116/70 No LMP recorded. Patient is . ASSESSMENT & PLAN ICD-10-CM 1. 29 weeks gestation of ([facility]) Z3A.29 POCT urinalysis dipstick manually resulted 2. Third trimester ([facility]) Z34.93 POCT urinalysis dipstick manually resulted 3. [...] Layo Courtney DO documented in this encounter [facility] 12-06-2024 History of Present illness Narrative Reason [...] ICD-10-CM 1. 27 weeks gestation of ([facility]) Z3A.27 POCT urinalysis dipstick manually resulted 2. Second trimester ([facility]) Z34.92 POCT urinalysis dipstick manually resulted Return [...] Layo Courtney DO documented in this encounter [facility] 11-08-2024 History of Present illness Narrative Reason [...] & PLAN ICD-10-CM 1. Second trimester ([facility]) Z34.92 POCT urinalysis dipstick manually resulted 2. 26 weeks gestation of ([facility]) Z3A.26 POCT urinalysis dipstick manually resulted 3. [...] Layo Courtney DO documented in this encounter [facility] 10-17-2024 History of Present illness Narrative Reason [...] nursing note reviewed. Exam conducted with a easement man present. Vitals: Estimated body mass index is 35.52 kg/m as calculated from the following: Height as of 09/17/22: 5' 3 . Weight as of this encounter: 200 lb 8 oz. BP: 126/82 No LMP recorded. Patient is . ASSESSMENT & PLAN ICD-10-CM 1. Second trimester ([facility]) Z34.92 POCT urinalysis dipstick manually resulted 2. 20 weeks gestation of ([facility]) Z3A.20 Return OB: Patient presents today for [...] Layo Courtney DO documented in this encounter [facility] 10-11-2024 History of Present illness Narrative Reason [...] Layo Courtney DO documented in this encounter [facility] 09-06-2024 History of Present illness Narrative Reason [...] of: ORION Spence documented in this encounter [facility] 08-08-2024 History of Present illness Narrative Reason [...] nursing note reviewed. Exam conducted with a easement man present. Vitals: Estimated body mass index is [...] M Guerrero NP on behalf of: Layo oCurtney DO documented in this encounter [facility] 07-29-2024 History of Present illness Narrative Reason [...] screen, urine; Future Nurse Note: Patient declined [employer] [place] billion to one Pt is an IVF [...] or undercooked meat, and stay away from [facility]. Patient has also been advised to [...] Marilia Elder MA documented in this encounter [facility] 07-11-2024 History of Present illness Narrative Visit [...] 07/11/2024 3:54 PM documented in this encounter [facility] Work Phone: 06-13-2024 History of Present illness [...] Preop diagnosis: Infertility Post op diagnosis: Same Paper Control Clerk: none Depth: 7 cm Curve: anterior Distance [...] 06/13/24 11:24 AM documented in this encounter [facility] Work Phone: 06-13-2024 Hospital Discharge instructions Tisha Sparks RN - 06/13/2024 10:43 AM EST Images from the original note were not included. [facility] [address]. [place] [id number] Home Going Instructions after Embryo Transfer: After [...] in : Advil, Motrin, Ibuprofen, Aleve, Excedrin, [place], Sudafed, and Pepto-Bismol. Avoid aspirin unless you [...] Sparks 10:43 AM documented in this encounter [facility] Work Phone: 06-06-2024 History of Present illness [...] BID until further instructed. Message sent to barge hand to schedule at 8:45 slot at [facility] for US and labs. ZOE FRANCIS on 06/06/24 at 1:12 PM. documented in this encounter [facility] Work Phone: 04-06-2024 Hospital Discharge instructions Patient [...] provider. Document Revised: 09/09/2021 Document Reviewed: 09/09/2021 [employer] Patient Education 2023 [employer]. Follow Up Care 03/25/2024 14:07:23 With:Mallory Judd Address: When:Within 6 Month(s) [facility] 03-22-2024 History of Present illness Narrative Associated Order(s): Egg Retrieval Pre-Procedure Diagnose(s): Encounter for assisted reproductive fertility cycle Post-Procedure Diagnose(s): Encounter for assisted reproductive fertility cycle Patient ID: Sydney Romero is a 28 y.o. female. Egg Retrieval Date/Time: 03/22/2024 9:39 AM Performed by: Juan Chavarria MD Authorized by: Donya Abernathy APRN-REAL TIME OPERATOR Consent: Consent obtained: Verbal and written [...] diagnosis: Female infertility Post op diagnosis: Same Paper Control Clerk: Dr. Warren IV Fluids: 600 cc EBL: 5 cc UOP: Not recorded Specimen: Oocytes Complications: None Number of Oocytes right ovary: 16 Ovarian access (right): Easy Number of Oocytes left ovary: 9 Ovarian access (left): Easy Endometrial thickness: n/a Needle type: Single Additional notes: documented in this encounter [facility] Work Phone: 03-22-2024 Nurse Note Patient discharged to home in stable condition via wheelchair to RIDE HOME: Partner's car. Accompanied by RN. VSS at time of discharge. Discharge instructions given and concerns addressed. Gisell Michel RN 03/22/24 11:08 AM [facility] Work Phone: 03-22-2024 Nurse Note Patient discharged to home in stable condition via wheelchair to RIDE HOME: Partner's car. Accompanied by RN. VSKenisha at time of discharge. Discharge instructions given and concerns addressed. Gisell Michel RN 03/22/24 11:08 AM documented in this encounter [facility] Work Phone: 03-22-2024 Hospital Discharge instructions Gisell Michel RN - 03/22/2024 8:45 AM EST Images from the original note were not included. [facility] [address] [place] [address] Home Going Instructions after Egg Retrieval: Activity: [...] 2 weeks following your oocyte retrieval. Call [phone] to speak with a Physician or Nurse if you have any concerns. Gisell Michel 8:[address] [place], [place] IVF LAB EMBRYO UPDATE PROTOCOL The [...] biopsied and frozen. Gisell Michel 8:44 AM [facility] [address] [place] [address] Frozen Embryo Transfer Instructions After your egg retrieval, follow up with your IVF nurse within 3-4 days Thursday-Thursday regarding the plan for your frozen embryo transfer (FET) cycle. Your IVF nurse will order and review with you the medications you will be using for the cycle. You will be sent an email from [employer] to fill out your Frozen Embryo Treatment [...] RN 8:44 AM documented in this encounter [facility] Work Phone: 03-20-2024 History of Present illness [...] Arrive 60 minutes prior to procedure at [place] [id number]. Patient verbalizes understanding of plan and location of procedure. Patient scheduled to go to [facility] tomorrow for post trigger labs Krissy Yanes 03/20/2024 11:01 AM documented in this encounter [facility] Work Phone: 03-19-2024 History of Present illness [...] 03/19/24 11:02 AM documented in this encounter [facility] Work Phone: 03-17-2024 History of Present illness [...] 03/17/24 1:04 PM documented in this encounter [facility] Work Phone: 03-15-2024 History of Present illness [...] time; no further questions. Transferred to the barge hand to schedule appt for 03/17. Allyssa Robles 03/15/24 1:27 PM documented in this encounter [facility] Work Phone: 03-09-2024 History of Present illness [...] Yes; PGT-M Test Ready: No ; Company: [employer] PGT order scanned into [employer], confirmed by: LORI on Plan to freeze: [...] on 03/09 by delano On site at [facility] Additional details: Allyssa Robles 03/09/2024 7:50 AM TC to pt to confirm today's plan; LM; will send MC message. Allyssa Robles 03/09/24 2:02 PM Pt called back to confirm plan; Pt has all meds and all questions answered. She plans to purchase FET meds before the end of the year (they were ordered back in February) and will call [facility] to have them filled as she has met deductible and REECE needs a PA. Allyssa Robles 03/09/24 2:33 PM documented in this encounter [facility] Work Phone: 02-23-2024 Nurse Note Patient discharged to home in stable condition via wheelchair accompanied by this RN to RIDE HOME: Partner's car. Discharge instructions given and concerns addressed. Patient verbalizes understanding of all information provided and is agreeable. [facility] 02-23-2024 Nurse Note Patient discharged to home in stable condition via wheelchair accompanied by this RN to RIDE HOME: Partner's car. Discharge instructions given and concerns addressed. Patient verbalizes understanding of all information provided and is agreeable. Patient up to bathroom independently, no complaints of pain or dizziness, able to void without issue, reports scant amount of bleeding. documented in this encounter [facility] Work Phone: 02-23-2024 Nurse Note Patient up to bathroom independently, no complaints of pain or dizziness, able to void without issue, reports scant amount of bleeding. [facility] Work Phone: 02-23-2024 History of Present illness [...] diagnosis: Female infertility Post op diagnosis: Same Paper Control Clerk: none IV Fluids: 500 cc EBL: 5 cc UOP: Not recorded Specimen: Oocytes Complications: None Number of Oocytes right ovary: 17 Ovarian acc ss (right): Easy Number of Oocytes left ovary: 13 Ovarian access (left): Easy Endometrial thickness: n/a Needle type: Single Additional notes: documented in this encounter [facility] Work Phone: 02-23-2024 Hospital Discharge instructions Donya Rosas RN - 02/23/2024 7:23 AM EDT Images from the original note were not included. [facility] [address]. [place] [id number] Home Going Instructions after Egg Retrieval: Activity: [...] 2 weeks following your oocyte retrieval. Call [phone] to speak with a Physician or Nurse if you have any concerns. DONYA ROSAS 7:[address] [place], [place] IVF LAB EMBRYO UPDATE PROTOCOL The [...] biopsied and frozen. DONYA ROSAS 7:23 AM [facility] [address] [place], [place] IVF LAB EMBRYO UPDATE PROTOCOL The [...] many have reached the blastocyst stage. Day 6: You will receive an email from the IVF Lab with your summary report indicating the number of embryos that were able to be frozen. If you are doing genetic testing on your embryos you will receive a phone call regarding the number of embryos biopsied and frozen. DONYA ROSAS 7:23 AM [facility] [address]. [place] [address] Frozen Embryo Transfer Instructions After your egg retrieval, follow up with your IVF nurse within 3-4 days Thursday-Thursday regarding the plan for your frozen embryo transfer (FET) cycle. Your IVF nurse will order and review with you the medications you will be using for the cycle. You will be sent an email from [employer] to fill out your Frozen Embryo Treatment [...] RN 7:32 AM documented in this encounter [facility] Work Phone: 02-21-2024 History of Present illness [...] 02/21/2024 9:09 AM documented in this encounter [facility] Work Phone: 02-20-2024 History of Present illness [...] Beth Judge RN documented in this encounter [facility] Work Phone: 02-18-2024 History of Present illness [...] Beth Judge RN documented in this encounter [facility] Work Phone: 02-16-2024 History of Present illness [...] Will look into getting insulin syringes from [facility]. Team will contact patient later today with results and plan. Krissy Yanes 02/16/2024 7:27 AM LM with patient with plan to start Cetrotide today, drop FSH to 225 units and continue Menopur 75 units. Patient is already scheduled for 02/17 for repeat follicle scan and e2. Krissy Yanes 02/16/24 1:34 PM documented in this encounter [facility] Work Phone: 02-09-2024 History of Present illness [...] Yes; PGT-M Test Ready: No /A; Company: [employer] PGT order scanned into [employer], confirmed by: LORI on 02/09/2024 Plan to freeze: embryos [employer] forms/out waiver complete: Yes Does patient have medications onhand? Yes Pharmacy: [facility] signed off: Yes LORETTA on [...] 02/15 as scheduled; no further questions. Allyssa Margaret 02/09/24 1:16 PM documented in this encounter [facility] Work Phone: 01-28-2024 Nurse Note Patient discharged to home in stable condition via wheelchair to RIDE HOME: Partner's car. Discharge instructions given and concerns addressed. [facility] Work Phone: 01-28-2024 Nurse Note Patient discharged to home in stable condition via wheelchair to RIDE HOME: Partner's car. Discharge instructions given and concerns addressed. documented in this encounter [facility] Work Phone: 01-28-2024 History of Present illness [...] no immediate complications documented in this encounter [facility] Work Phone: 01-28-2024 Hospital Discharge instructions Ira Lopez RN - 01/28/2024 8:20 AM EDT Images from the original note were not included. [facility] [address] [place] [address] Home Going Instructions after Polypectomy: Activity: We [...] Lopez 8:20 AM documented in this encounter [facility] Work Phone: 01-14-2024 History of Present illness [...] nursing note reviewed. Exam conducted with a easement man present. Vitals: Estimated body mass index is [...] of: ORION Spence documented in this encounter [facility] 12-28-2023 History of Present illness Narrative Visit [...] EVALUATION / TREATMENT Saw KELSY physician in [facility] IVF [facility] Dr. Vergara Was told needed IVF, oligospermia Hysterosalpingogram: 2023, bilateral tubal patency Saline Infused Sonography: 07/2023, normal uterine cavity small uterine polyp noted (not removed as of yet) MOLDING PLASTERER Pelvic Ultrasound: 07/2023 AMH 2.01 Relationship Status: x 2 years OB Hx G0 OB History 0 Para 0 Term 0 0 AB 0 Living 0 SAB 0 IAB 0 Ectopic 0 Multiple 0 Live Births 0 MOLDING PLASTERER HISTORY History of STD or PID: No [...] 12/28/2023 10:39 AM documented in this encounter [facility] Work Phone: 2023 History of Present illness Narrative Visit Type: In Person NEW FERTILITY PATIENT VISIT Referred by: insurance referral Accompanied today by: spouse Sydney Romero is a 27 y.o. female who presents with Infertility TTC x 2 years PRIOR EVALUATION / TREATMENT Saw KELSY physician in [facility] Dr. Vergara Was told needed IVF, oligospermia Hysterosalpingogram: 2023, bilateral tubal patency Saline Infused Sonography: 07/2023, normal uterine cavity small uterine polyp noted (not removed as of yet) MOLDING PLASTERER Pelvic Ultrasound: 07/2023 AMH 2.01 Prior Labs [...] Ectopic 0 Multiple 0 Live Births 0 MOLDING PLASTERER HISTORY History of STD or PID: No [...] mg daily Recommend Consult with Dr. Meyer [phone] Recommend repeat SA with 48-72 hours abstinence Recommend Female Vitamins: vitamin Vitamin D (total of 2,000 international units daily) CoQ10 600 mg daily Routine Testing [facility] STDs Within 1 year Genetic carrier Waiver/Completed T&S Within 1 year AMH Within 1 year TSH Within 1 year Rubella/Varicella Within 5 years BMI Testing [facility] CBC Within 1 year CMP Within [...] 2023 8:52 AM documented in this encounter [facility] Work Phone: 2023 Instructions SMITH Mina - 2023 8:45 AM EDT Recommend Male Vitamins Discussed as follows: Co-Q10 200 mg daily L-Carnitine 200-500 mg daily Vitamin C 500 mg daily Recommend Consult with Dr. Meyer [phone] Recommend repeat SA with 48-72 hours abstinence Recommend Female Vitamins: vitamin Vitamin D (total of 2,000 international units daily) CoQ10 600 mg daily documented in this encounter [facility] Work Phone: 10-02-2023 Hospital Discharge instructions Patient [...] food choices, such as grocery stores and [employer]. What are the signs or symptoms? [...] and how much exercise you get. Take waco-jjj-royvkud and prescription medicines only as told by [...] provider. Document Revised: 11/26/2021 Document Reviewed: 11/26/2021 [employer] Patient Education 2022 [employer]. 10/02/2023 12:54:15 BMI for Adults BMI for [...] numbers. This can be done either in [place] ([place] or metric measurements. Note that charts and online BMI calculators are available to help you find your BMI quickly and easily without having to do these calculations yourself. To calculate your BMI in [place] ([place] measurements: 1.Measure your weight in pounds [...] Association: www.heart.org National Heart, Lung, and Blood [place]: www.nhlbi.nih.gov Summary Body mass index (BMI) is a number that is calculated from a person's weight and height. BMI may help estimate how much of a person's weight is composed of fat. BMI can help identify those who may be at higher risk for certain medical problems. BMI can be measured using [place] measurements or metric measurements. BMI charts are used to identify whether you are underweight, normal weight, overweight, or obese. This information is not intended to replace advice given to you by your health care provider. Make sure you discuss any questions you have with your health care provider. Document Revised: 01/11/2020 Document Reviewed: 11/18/2019 [employer] Patient Education 2022 [employer]. 10/02/2023 12:54:13 Migraine Headache Migraine Headache A [...] Follow these instructions at home: Medicines Take jdgq-ehk-vgjkvlx and prescription medicines only as told by your health care provider. Ask your health care provider if the medicine prescribed to you: ?Requires you to avoid driving or using heavy machinery. ?Can cause constipation. You may need to take these actions to prevent or treat constipation: ?Drink enough fluid to keep your urine pale yellow. ?Take mcau-xuy-jovcups or prescription medicines. ?Eat foods that are [...] provider. Document Revised: 08/12/2019 Document Reviewed: 06/02/2019 [employer] Patient Education 2022 [employer] 10/02/2023 12:54:11 Form - Headache Record [...] provider. Document Revised: 09/18/2021 Document Reviewed: 09/18/2021 [employer] Patient Education 2022 [employer] 10/02/2023 12:54:08 Eczema Eczema Eczema refers [...] these instructions at home: Take or apply yqjj-hyx-bajuume and prescription medicines only as told by [...] provider. Document Revised: 01/28/2021 Document Reviewed: 01/28/2021 [employer] Patient Education 2022 [employer]. 10/02/2023 12:54:06 BMI for Adults BMI for [...] numbers. This can be done either in [place] ([place] or metric measurements. Note that charts and online BMI calculators are available to help you find your BMI quickly and easily without having to do these calculations yourself. To calculate your BMI in [place] ([place] measurements: 1.Measure your weight in pounds [...] Association: www.heart.org National Heart, Lung, and Blood [place]: www.nhlbi.nih.gov Summary Body mass index (BMI) is a number that is calculated from a person's weight and height. BMI may help estimate how much of a person's weight is composed of fat. BMI can help identify those who may be at higher risk for certain medical problems. BMI can be measured using [place] measurements or metric measurements. BMI charts are used to identify whether you are underweight, normal weight, overweight, or obese. This information is not intended to replace advice given to you by your health care provider. Make sure you discuss any questions you have with your health care provider. Document Revised: 01/11/2020 Document Reviewed: 11/18/2019 [employer] Patient Education 2022 [employer]. Follow Up Care 09/22/2023 13:18:17 With:Princess Dumont FAM, [facility] Address: [address] [place], [place] [id number] Business (1) When:07/08/2023 Comments:for f/u [facility] 08-27-2023 Hospital Discharge instructions [...] 1.Identify the foods that contain carbohydrates: Rice. [place]. Milk. Strawberries. 2.Calculate how many servings you [...] provider. Document Revised: 11/21/2020 Document Reviewed: 11/21/2020 [employer] Patient Education 2022 [employer]. 08/27/2023 19:11:56 Calorie Counting for Weight Loss [...] provider. Document Revised: 05/31/2020 Document Reviewed: 05/31/2020 [employer] Patient Education 2022 [employer]. 08/27/2023 19:11:54 Exercising to Lose Weight Exercising [...] health care provider or diet and nutrition teacher (dietitian). This may include: ?Eating fewer calories. [...] provider. Document Revised: 06/16/2021 Document Reviewed: 06/16/2021 [employer] Patient Education 2022 [employer] 08/27/2023 19:11:53 BMI for Adults BMI for [...] numbers. This can be done either in [place] ([place] or metric measurements. Note that charts and online BMI calculators are available to help you find your BMI quickly and easily without having to do these calculations yourself. To calculate your BMI in [place] ([place] measurements: 1.Measure your weight in pounds [...] Association: www.heart.org National Heart, Lung, and Blood [place]: www.nhlbi.nih.gov Summary Body mass index (BMI) is a number that is calculated from a person's weight and height. BMI may help estimate how much of a person's weight is composed of fat. BMI can help identify those who may be at higher risk for certain medical problems. BMI can be measured using [place] measurements or metric measurements. BMI charts are used to identify whether you are underweight, normal weight, overweight, or obese. This information is not intended to replace advice given to you by your health care provider. Make sure you discuss any questions you have with your health care provider. Document Revised: 01/11/2020 Document Reviewed: 11/18/2019 [employer] Patient Education 2022 [employer]. 08/27/2023 19:11:48 Musculoskeletal Pain Musculoskeletal Pain Musculoskeletal [...] mouth or applied to the skin. Take vlgb-obc-lwhrkbg and prescription medicines only as told by [...] provider. Document Revised: 08/23/2020 Document Reviewed: 08/01/2020 [employer] Patient Education 2022 [employer]. 08/27/2023 19:05:09 Cervicogenic Headache Cervicogenic Headache In [...] includes your primary health care provider, a mural painter, a neurologist, and a physical therapist. Follow these instructions at home: Take wdze-sxb-azhmzad and prescription medicines only as told by [...] includes your primary health care provider, a mural painter, a neurologist, and a physical therapist. This information is not intended to replace advice given to you by your health care provider. Make sure you discuss any questions you have with your health care provider. Document Revised: 10/24/2021 Document Reviewed: 10/24/2021 [employer] Patient Education 2022 [employer]. 08/27/2023 19:05:07 Form - Headache Record Form [...] provider. Document Revised: 09/18/2021 Document Reviewed: 09/18/2021 [employer] Patient Education 2022 [employer]. 08/27/2023 19:05:07 Chronic Migraine Headache Chronic Migraine [...] Follow these instructions at home: Medicines Take lgjc-yxu-eragjcb and prescription medicines only as told by [...] provider. Document Revised: 06/06/2020 Document Reviewed: 06/06/2020 [employer] Patient Education 2022 [employer] 08/27/2023 19:05:03 BMI for Adults BMI [...] numbers. This can be done either in [place] ([place] or metric measurements. Note that charts and online BMI calculators are available to help you find your BMI quickly and easily without having to do these calculations yourself. To calculate your BMI in [place] ([place] measurements: 1.Measure your weight in pounds [...] Association: www.heart.org National Heart, Lung, and Blood [place]: www.nhlbi.nih.gov Summary Body mass index (BMI) is a number that is calculated from a person's weight and height. BMI may help estimate how much of a person's weight is composed of fat. BMI can help identify those who may be at higher risk for certain medical problems. BMI can be measured using [place] measurements or metric measurements. BMI charts are used to identify whether you are underweight, normal weight, overweight, or obese. This information is not intended to replace advice given to you by your health care provider. Make sure you discuss any questions you have with your health care provider. Document Revised: 01/11/2020 Document Reviewed: 11/18/2019 [employer] Patient Education 2022 [employer]. 08/27/2023 19:05:01 Health Maintenance, Female Health Maintenance, [...] provider. Document Revised: 09/09/2021 Document Reviewed: 09/09/2021 [employer] Patient Education 2022 [employer]. Follow Up Care 08/17/2023 08:42:02 With:Dionte MARI, TIARA Martinez, [facility] Address: [facility] Vance Schrader, [facility] [place] [id number]- When:Within 6 Week(s) Comments:weight loss and headaches [facility] 02-19-2023 Evaluation + Plan note Future Scheduled TestsU Protein/Creat Ratio 02/19/23HgbA1c 02/19/23Microalbumin Level Urine 02/19/23TSH With T4fr Reflex 02/19/23Vitamin D 25 Hydroxy 02/19/23CBC w/ Auto Diff 02/19/23Comprehensive Metabolic Panel 02/19/23Lipid Panel 02/19/23XR Spine Cervical 4 or 5 Views 02/19/23 [facility] 02-19-2023 Hospital Discharge instructions [...] includes your primary health care provider, a mural painter, a neurologist, and a physical therapist. Follow these instructions at home: Take krsy-gwr-bnncghh and prescription medicines only as told by [...] includes your primary health care provider, a mural painter, a neurologist, and a physical therapist. This information is not intended to replace advice given to you by your health care provider. Make sure you discuss any questions you have with your health care provider. Document Revised: 10/24/2021 Document Reviewed: 10/24/2021 [employer] Patient Education 2022 [employer]. 02/19/2023 08:34:09 Migraine Headache Migraine Headache A [...] Follow these instructions at home: Medicines Take uuhy-esg-ubeyotk and prescription medicines only as told by your health care provider. Ask your health care provider if the medicine prescribed to you: ?Requires you to avoid driving or using heavy machinery. ?Can cause constipation. You may need to take these actions to prevent or treat constipation: ?Drink enough fluid to keep your urine pale yellow. ?Take cbgg-ibq-vmihvxm or prescription medicines. ?Eat foods that are [...] provider. Document Revised: 08/12/2019 Document Reviewed: 06/02/2019 [employer] Patient Education 2022 [employer]. 02/19/2023 08:34:03 Form - Headache Record Form [...] provider. Document Revised: 09/18/2021 Document Reviewed: 09/18/2021 [employer] Patient Education 2022 [employer]. 02/19/2023 01:02:45 General Headache Without Cause General [...] help with your condition: Managing pain Take jfnl-zdx-dvvrueq and prescription medicines only as told by [...] provider. Document Revised: 09/18/2021 Document Reviewed: 09/18/2021 [employer] Patient Education 2022 [employer] 02/19/2023 01:02:42 Form - Headache Record [...] provider. Document Revised: 09/18/2021 Document Reviewed: 09/18/2021 [employer] Patient Education 2022 [employer] 02/19/2023 01:02:37 Cervicogenic Headache Cervicogenic Headache [...] includes your primary health care provider, a mural painter, a neurologist, and a physical therapist. Follow these instructions at home: Take fivr-tqm-yjdvrmg and prescription medicines only as told by [...] includes your primary health care provider, a mural painter, a neurologist, and a physical therapist. This information is not intended to replace advice given to you by your health care provider. Make sure you discuss any questions you have with your health care provider. Document Revised: 10/24/2021 Document Reviewed: 10/24/2021 [employer] Patient Education 2022 [employer]. 02/19/2023 01:02:35 Chronic Migraine Headache Chronic Migraine [...] Follow these instructions at home: Medicines Take iubo-skv-kxfpjva and prescription medicines only as told by [...] provider. Document Revised: 06/06/2020 Document Reviewed: 06/06/2020 [employer] Patient Education 2022 [employer]. Follow Up Care 02/17/2023 08:10:14 With:Princess Dumont FAM, MED Address: [address] [facility] [address] [address]- When:Within 1 Month(s) Comments:headaches. neck pain With:Princess Dumont FAM, MED Address: [address], [facility] [address] [address]- When:Within 1 Year(s) Comments:annual wellness, anxiety/ depression [facility] 07-24-2021 Hospital Discharge instructions [...] height. This can be done either in [place] or metric measurements. Note that charts are available to help you find your BMI quickly and easily without having to do these calculations yourself. To calculate your BMI in [place] measurements, your health care provider will: [...] medical problems. BMI can be measured using Kittitian measurements or metric measurements. To interpret your [...] 12/30/2004 Document Revised: 04/02/2018 Document Reviewed: 03/03/2018 [employer] Patient Education 2020 [employer]. 07/24/2021 17:16:58 Health Maintenance, Female Health Maintenance, [...] 11/03/2011 Document Revised: 04/13/2019 Document Reviewed: 04/13/2019 [employer] Patient Education 2020 [employer]. Follow Up Care 06/26/2021 18:00:45 With:Leigh Ann Covington CNP Address: When: only if needed [facility] Evaluation + Plan note Future Appointments Appointment Date:10/03/2021 01:00:00 PM Scheduled Provider:Naya ABDI Location:[facility] Appointment Type:ILENE DAVID [facility] Evaluation + Plan note Future Appointments Appointment Date:03/25/2023 07:00:00 AM Scheduled Provider:Princess Dumont Location:[facility] Appointment Type: Open Future Scheduled TestsU Protein/Creat Ratio 02/19/23HgbA1c 02/19/23Microalbumin Level Urine 02/19/23TSH With T4fr Reflex 02/19/23Vitamin D 25 Hydroxy 02/19/23CBC w/ Auto Diff 02/19/23Comprehensive Metabolic Panel 02/19/23Lipid Panel 02/19/23XR Spine Cervical 4 or 5 Views 02/19/23 [facility] Evaluation + Plan note Future Appointments Appointment Date:10/21/2023 07:20:00 AM Scheduled Provider:Princess Dumont Location:[facility] Appointment Type: Open Future Scheduled TestsTSH With T4fr Reflex 02/19/23Vitamin D 25 Hydroxy 02/19/23CBC w/ Auto Diff 02/19/23Comprehensive Metabolic Panel 02/19/23Lipid Panel 02/19/23XR Spine Cervical 4 or 5 Views 02/19/23 [facility] Evaluation + Plan note Future Appointments Appointment Date:10/05/2024 07:00:00 AM Scheduled Provider:Mlalory Judd Location:[facility] Appointment Type:FM Open [facility] Evaluation note Diagnosis Endometrial polyp Polyp of corpus uteri documented in this encounter [facility] Work Phone: Evaluation note* Diagnosis Pre-procedure lab exam Pre-procedural laboratory examination Female infertility Female infertility of unspecified origin documented in this encounter [facility] Work Phone: Evaluation note* Diagnosis Female infertility Female infertility of unspecified origin documented in this encounter [facility] Work Phone: Evaluation note* Diagnosis Female infertility Female infertility of unspecified origin documented in this encounter [facility] Work Phone: Evaluation note* Diagnosis Encounter for assisted reproductive fertility cycle Encounter for assisted reproductive fertility procedure cycle documented in this encounter [facility] Work Phone: Evaluation note* Diagnosis Female infertility Female infertility of unspecified origin Pre-procedure lab exam Pre-procedural laboratory examination documented in this encounter [facility] Work Phone: Evaluation note* Diagnosis Female infertility Female infertility of unspecified origin documented in this encounter [facility] Work Phone: Evaluation note* Diagnosis Female infertility Female infertility of unspecified origin documented in this encounter [facility] Work Phone: Evaluation note* Diagnosis Female infertility Female infertility of unspecified origin documented in this encounter [facility] Work Phone: Evaluation note* Diagnosis Encounter for assisted reproductive fertility cycle Encounter for assisted reproductive fertility procedure cycle documented in this encounter [facility] Work Phone: Evaluation note* Diagnosis Encounter for assisted reproductive fertility cycle Encounter for assisted reproductive fertility procedure cycle documented in this encounter [facility] Work Phone: Evaluation note* Diagnosis Well woman exam with routine gynecological exam Routine gynecological examination [facility] Diagnosis Encounter for screening for other viral diseases- Primary Encounter for Rh blood typing Encounter for blood typing Screening for STDs (sexually transmitted diseases) Screening examination for venereal disease Genetic screening Other genetic screening Fertility testing Female infertility associated with male factors Female infertility of other specified origin documented in this encounter [facility] Work Phone: Evaluation note* Diagnosis Fertility testing [Z31.41]- Primary Fertility testing 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 [Z31.81, N97.8] documented in this encounter [facility] [employer] Phone: [phone] note* Diagnosis Endometrial polyp Polyp of corpus uteri documented in this encounter [facility] Work Phone: [phone] note* Diagnosis Female infertility Female infertility of unspecified origin documented in this encounter [facility] [employer] Phone: [phone] note* Diagnosis Encounter for assisted reproductive fertility cycle Encounter for assisted reproductive fertility procedure cycle documented in this encounter [facility] Work Phone: Evaluation note* Diagnosis Encounter for assisted reproductive fertility cycle Encounter for assisted reproductive fertility procedure cycle Encounter for test, result unknown documented in this encounter [facility] Work Phone: [phone] note* Diagnosis Encounter to determine viability of , single or unspecified fetus documented in this encounter [facility] [employer] Phone: Evaluation note* Diagnosis Missed menses 9 [...] note* Diagnosis (HHS-HCC) documented in this encounter [facility] Work Phone: Evaluation note* Diagnosis Second trimester state, incidental 19 weeks gestation of Pruritus Unspecified pruritic disorder documented in this encounter [facility]* Diagnosis Acute bilateral low back pain without sciatica- Primary Second trimester (HHS-HCC) state, incidental 20 weeks gestation of (HHS-HCC) documented in this encounter [facility]* Diagnosis Second trimester (HHS-HCC) state, incidental 26 weeks gestation of (HHS-HCC) Diabetes mellitus screening Screening for diabetes mellitus documented in this encounter [facility]* Diagnosis 27 weeks gestation of (HHS-HCC) Second trimester (HHS-HCC) state, incidental documented in this encounter [facility]* Diagnosis 29 weeks gestation of (HHS-HCC) Third trimester (HHS-HCC) state, incidental Leukocytes in urine Other nonspecific finding on examination of urine Other microscopic hematuria documented in this encounter [facility]* Diagnosis Third trimester (HHS-HCC) state, incidental 31 weeks gestation of (HHS-HCC) resulting from in vitro fertilization in third trimester (HHS-HCC) documented in this encounter [facility]* Diagnosis 33 weeks gestation of (HHS-HCC) Third trimester (HHS-HCC) state, incidental Group B streptococcal infection Streptococcus infection in conditions classified elsewhere and of unspecified site, group B resulting from in vitro fertilization in first trimester ([facility]) [facility] Narrative No data available for this section [facility] Hospital Discharge instructions No data available for this section [facility] Progress note No data available for this section [facility] Reason for referral (narrative)* Consultation (Routine) - Authorized Specialty Diagnoses / Procedures Referred By Alejandro hyatt Referred To Contact Genetics Diagnoses Genetic screening Trish Thorpe, RADIATION THERAPY TECHNICIAN-REAL TIME OPERATOR [address] [place] [address] Referral ID Status Reason Start Date Expiration Date Visits Requested Visits Authorized [id number] Authorized Specialty Services Required 2023 12/10/2024 1 1 [facility] Work Phone: reason for visit Narrative* Imaging (Routine) - Authorized Specialty Diagnoses / Procedures Referred By Contac t Referred To Contact Radiology Diagnoses Female infertility Procedures KELSY US Pelvis Limited Follicles - Follicle Studies Performed America Chavez APRN-REAL TIME OPERATOR [address] [place] [address] Phone: tel: fax: Referral ID Status Reason Start Date Expiration Date Visits Requested Visits Authorized [id number] Authorized Perform Procedure 02/02/2024 02/01/2025 8 8 [facility] Work Phone: reason for visit Narrative* Imaging (Routine) - Pending Review Specialty Diagnoses / Procedures Referred By Contac t Referred To Contact Radiology Diagnoses Female infertility Procedures KELSY US Pelvis Limited Follicles - Follicle Studies Performed America Chavez APRN-REAL TIME OPERATOR [address] [place] [address] Phone: tel: fax: Referral ID Status Reason Start Date Expiration Date Visits Requested Visits Authorized [id number] Pending Review Perform Procedure 02/02/2024 02/01/2025 8 8 [facility] Work Phone: reason for visit Narrative* Procedure (Routine) - Authorized Specialty Diagnoses / Procedures Referred By Contac t Referred To Contact Reproductive Endocrinology and Infertility Diagnoses Encounter for assisted reproductive fertility cycle Procedures Egg Retrieval MS FOLLICLE PUNCTURE OOCYTE RETRIEVAL ANY METHOD CHG US GUIDANCE ASPIRATION OVA IMG S&I CHG OOCYTE ID FROM FOLLICULAR FLU CHG BX OOCYTE POLR BDY/AMBER BLST MICROTQ <= 5 AMBER CHG BX OOCYTE MICROTQ >5 AMBER CHG UNLISTED MOLECULAR PATHOLOGY PROCEDURE CHG CYTOGENETICS&MOLEC CYTOGENETICS INTERP&REP Beth Warren MD [address] [place] [address] Phone: tel: fax: Referral ID Status Reason Start Date Expiration Date V isits Requested Visits Authorized [id number] Authorized 01/27/2024 01/26/2025 1 1 [facility] Work Phone: reason for visit Narrative* Imaging (Routine) - Authorized Specialty Diagnoses / Procedures Referred By Contac t Referred To Contact Radiology Diagnoses Female infertility Procedures KELSY US Pelvis Limited Follicles - Follicle Studies Performed Donya Abernathy, CHRISTEN-REAL TIME OPERATOR [address] [facility], [address], [place] [address] Phone: tel: fax: Referral ID Status Reason Start Date Expiration Date Visits Requested Visits Authorized [id number] Authorized Perform Procedure 03/01/2025 8 8 [facility] Work Phone: reason for visit Narrative* Procedure (Routine) - Authorized Specialty Diagnoses / Procedures Referred By Contac t Referred To Contact Reproductive Endocrinology and Infertility Diagnoses Encounter for assisted reproductive fertility cycle Procedures Egg Retrieval MS FOLLICLE PUNCTURE OOCYTE RETRIEVAL ANY METHOD CHG US GUIDANCE ASPIRATION OVA IMG S&I CHG OOCYTE ID FROM FOLLICULAR FLU CHG BX OOCYTE POLR BDY/AMBER BLST MICROTQ <= 5 AMBER CHG BX OOCYTE MICROTQ >5 AMBER CHG UNLISTED MOLECULAR PATHOLOGY PROCEDURE CHG CYTOGENETICS&MOLEC CYTOGENETICS INTERP&REP Donya Abernathy, SMITH [address] [facility], [address], [place] [address] Phone: tel: fax: Referral ID Status Reason Start Date Expiration Date V isits Requested Visits Authorized [id number] Authorized 03/01/2024 03/01/2025 1 0 [facility] Work Phone: reason for visit Narrative* Imaging (Routine) - Authorized Specialty Diagnoses / Procedures Referred By Contac t Referred To Contact Radiology Diagnoses Female infertility Procedures KELSY US Endometrial Lining Check Donya Abernathy, ANNABELLAREAL TIME OPERATOR [address] [address] [place] [address] Phone: tel: fax: Referral ID Status Reason Start Date Expiration Date Visits Requested Visits Authorized [id number] Authorized Perform Procedure 4 02/23/2025 5 5 [facility] Work Phone: Reason for visit Narrative* Procedure (Routine) - Authorized Specialty Diagnoses / Procedures Referred By Alejandro hyatt Referred To Contact Reproductive Endocrinology and Infertility Diagnoses Encounter for assisted reproductive fertility cycle Procedures Embryo Transfer MS EMBRYO TRANSFER INTRAUTERINE CHG ULTRASONIC GUIDANCE INTRAOPERATIVE CHG THAWING CRYOPRESERVED EMBRYO CHG ASSTD EMBRYO HATCHING MICROTQS ANY METH CHG PREPJ EMBRYO TR Juan Chavarria MD [address] [facility] [facility] [address] [place] [address] Phone: tel: fax: Referral ID Status Reason Start Date Expiration Date V isits Requested Visits Authorized [id number] Authorized 06/10/2024 06/10/2025 1 1 [facility] Work Phone: Reason for visit Narrative* Imaging (Routine) - Authorized Specialty Diagnoses / Procedures Referred By Alejandro hyatt Referred To Contact Radiology Diagnoses ([facility]) Procedures US OB detail anatomy Layo Courtney, DO [address] [facility], [place] [address] Phone: tel: fax: Referral ID Status Reason Start Date Expiration Date Visits Requested Visits Authorized [id number] Authorized Perform Procedure 08/15/2024 08/15/2025 1 1 [facility] Work Phone: Summary Purpose Family History No [...] polyp Procedures Polypectomy Juan Chavarria MD [address], [address] [place] [address] [address] [place] [address] Referral ID Status Reason Start Date Expiration Date V isits Requested Visits Authorized [id number] Authorized 01/25/2024 01/24/2025 1 1 Additional Source Comments INFORMATION SOURCE (unrecogn ized section and content) DATE CREATED AUTHOR 08/01/2022 [facility] DATE CREATED AUTHOR AUTHOR'S ORGANIZ ATION 04/04/2024 [facility] DATE CREATED AUTHOR AUTHOR'S ORGANIZ ATION 06/15/2024 [facility] DATE CREATED AUTHOR AUTHOR'S ORGANIZ ATION 07/02/2024 [facility] DATE CREATED AUTHOR AUTHOR'S ORGANIZ ATION 07/14/2024 [facility] DATE CREATED AUTHOR AUTHOR'S ORGANIZ ATION 10/11/2024 [facility] DATE CREATED AUTHOR AUTHOR'S ORGANIZ ATION 01/17/2025 [facility] Specialists EPIC Patient Care team informatio n (unrecognized section and content) Automotive Manufacturer Relationship Specialty Start Date End Date Allyssa Robles RN Registered Nurse Reproductive Endocrinology and Infertility 12/25/23 Automotive Manufacturer Relationship Specialty Start Date End Date Allyssa Robles RN Registered Nurse Reproductive Endocrinology and Infertility 12/25/23 Automotive Manufacturer Relationship Specialty Start Date End Date Allyssa Robles RN Registered Nurse Reproductive Endocrinology and Infertility 12/25/23 Automotive Manufacturer Relationship Specialty Start Date End Date Allyssa Robles RN Registered Nurse Reproductive Endocrinology and Infertility 12/25/23 Automotive Manufacturer Relationship Specialty Start Date End Date Allyssa Robles RN Registered Nurse Reproductive Endocrinology and Infertility 12/25/23 Automotive Manufacturer Relationship Specialty Start Date End Date Allyssa Robles RN Registered Nurse Reproductive Endocrinology and Infertility 12/25/23 Automotive Manufacturer Relationship Specialty Start Date End Date Allyssa Robles RN Registered Nurse Reproductive Endocrinology and Infertility 12/25/23 Automotive Manufacturer Relationship Specialty Start Date End Date Allyssa Robles RN Registered Nurse Reproductive Endocrinology and Infertility 12/25/23 Automotive Manufacturer Relationship Specialty Start Date End Date Allyssa Robles RN Registered Nurse Reproductive Endocrinology and Infertility 12/25/23 Automotive Manufacturer Relationship Specialty Start Date End Date Ginger Torres LPN Licensed Practical Nurse 12/10/23 Automotive Manufacturer Relationship Specialty Start Date End Date Allyssa Robles RN Registered Nurse Reproductive Endocrinology and Infertility 12/25/23 Automotive Manufacturer Relationship Specialty Start Date End Date Allyssa Robles RN Registered Nurse Reproductive Endocrinology and Infertility 12/25/23 Automotive Manufacturer Relationship Specialty Start Date End Date Allyssa Robles RN Registered Nurse Reproductive Endocrinology and Infertility 12/25/23 Automotive Manufacturer Relationship Specialty Start Date End Date Allyssa Robles RN Registered Nurse Reproductive Endocrinology and Infertility 12/25/23 Automotive Manufacturer Relationship Specialty Start Date End Date Allyssa Robles RN Registered Nurse Reproductive Endocrinology and Infertility 12/25/23 Reason for Visit (unrecogniz ed section and content) Specialty Diagnoses / Procedures Referred By Alejandro hyatt Referred To Contact Diagnoses Endometrial polyp Procedures Polypectomy Juan Chavarria MD [address] [facility] [address], [place] [address] [address] [place] [address] Referral ID Status Reason Start Date Expiration Date V isits Requested Visits Authorized [id number] Authorized 01/25/2024 01/24/2025 1 1 Specialty Diagnoses / Procedures Referred By Alejandro hyatt Referred To Contact Radiology Diagnoses Female infertility Procedures KELSY US Pelvis Limited Follicles - Follicle Studies Performed America Chavez, RADIATION THERAPY TECHNICIAN-REAL TIME OPERATOR [address] [place] [address] Referral ID Status Reason Start Date Expiration Date Visits Requested Visits Authorized [id number] Authorized Perform Procedure 02/02/2024 02/01/2025 8 8 [...] BE BASED ON THE PRIMARY CLINICAL RECORDS. [facility] [employer] [facility]. provides no warranty or guarantee of the accuracy or completeness of information in this document.
[2025-01-25 16:02] VITALS: BP 113/72; PULSE 98
--- NOTE | 2025-01-25 16:56 | PC.NURSE ---
US into room for BPP. NST reactive.
== END 2025-01-25 17:29 | disposition home or self-care (01) ==
LOC: US 15:48 → FBC 15:49
PROVIDERS: Visit Provider Obstetrics & Gynecology
DX: O26.893 Other specified pregnancy related conditions, third trimester (principal)
CPT/HCPCS: 76818

== ENCOUNTER 2025-01-27 16:05 | Outpatient (OUT) | payer OTHER, SELFPAY ==
--- OUTSIDE RECORDS SUMMARY | 2025-01-16 14:50 | XMS_ITS | Encounter Summary ---
Author Organization [facility] Address [address] [place] [address] Care Team Providers Care Chief Meteorologist Name Role Phone Unavailable Primary Care Provider Unavailabl e Reason for Visit * Reason Comments Routine Visit Encounter Details Date Type Department Care Team (Latest Contact Info) Description 01/16/2025 2:50 PM EDT Routine [facility] [address] [place] [phone] Layo Courtney DO [address] [place], [place] [phone] 33 weeks gestation of ([facility]); Third trimester ([facility]); Group B streptococcal infection; resulting from in vitro fertilization in first trimester ([facility]) 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 Tobacco Use Types Packs/Day Years [...] nursing note reviewed. Exam conducted with a ferry engineer present. Vitals: Estimated body mass index is 40.21 kg/m?? as calculated from the following: Height as of 09/17/22: 5' 3 . Weight as of this encounter: 227 lb. BP: 110/70 No LMP recorded. Patient is . ASSESSMENT & PLAN ICD-10-CM 1. 33 weeks gestation of ([facility]) Z3A.33 POCT urinalysis dipstick manually resulted 2. Third trimester ([facility]) Z34.93 POCT urinalysis dipstick manually resulted 3. Group B streptococcal infection A49.1 4. resulting from in vitro fertilization in first trimester ([facility]) O09.811 Return OB: Patient presents today for [...] [facility] [address] [place] [address] Maria M Guerrero NP [address] [place] [address] documented as of this encounter Procedures Procedure Name Priority Date/Time Associated Diagnosis Comments POCT URINALYSIS DIPSTICK Routine 01/16/2025 3:20 PM EDT 33 weeks gestation of ([facility]) Third trimester ([facility]) documented in this encounter Results * (ABNORMAL) [...] Visit Diagnoses Diagnosis 33 weeks gestation of ([facility]) Third trimester ([facility]) state, incidental Group B streptococcal infection Streptococcus infection in conditions classified elsewhere and of unspecified site, group B resulting from in vitro fertilization in first trimester ([facility]) documented in this encounter
--- OUTSIDE RECORDS SUMMARY | 2025-01-27 16:07 | XMS_ITS | Encounter Summary ---
Author Organization [facility] Address [address] [place] [address] Care Team Providers Care Smoke Jumper Name Role Phone Unavailable Primary Care Provider Unavailabl e Encounter Details Date Type Department Care Team (Late st Contact Info) Description 03/23/2023 Abstract [facility] Yan[facility] ZACARIAS [address] [facility] [place] [address] Cassy Licea LPN [address] [facility] [place] [address] [place] [address] 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 Tobacco Use Types Packs/Day [...] 1:50 PM EDT Routine [facility] Z[facility]ARI[facility] [address] [facility] [place] [address] Maria M Guerrero, MARGARITO [address] [facility] [place] [address] documented as of this encounter Visit Diagnoses Not on filedocumented in this encounter
--- OUTSIDE RECORDS SUMMARY | 2025-01-27 16:07 | XMS_ITS | Encounter Summary ---
Author Organization [facility] Address [address] [place] [address] Phone Care Team Providers Care Market Development Analyst Name Role Phone Allyssa Robles RN Unavailable Unavailable Encounter Details Date Type Department Care Team (Late st Contact Info) Description 06/23/2024 Lab Requisition [facility] [address] [place] [phone] America Chavez, ROLLER LEVELER OPERATOR-FIELD SUPERVISOR [address] [place] [address] Female infertility, unspecified 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 Tobacco Use [...] EST 06/23/2024 8:35 AM EST America Chavez [facility] BLOOD ORDER[facility] Final Result Performing Organization Address City/[facility]/ZIP Co de Phone Number [facility] [address] [place], [place] [phone] * Phleb Charge - Venipuncture (Lab Use Only) (06/23/2024 7:53 AM EST) Blood Venous blood specimen / Unknown 06/23/2024 7:53 AM EST 06/23/2024 8:35 AM EST America Chavez [facility] BLOOD ORDERABLES Final Result Performing Organization Address City/[facility]/ZIP Co de Phone Number [facility] [address] [place] [id number] * Estradiol (06/23/2024 7:53 AM EST) Estradiol [...] at [facility] than other [facility]. Direct result comparison should only be made within the same method. Americaroxy Chavez ROLLER LEVELER OPERATOROversight SystemsFIELD SUPERVISOR LAB BLOOD ORDERABLES Final Result Performing Organization Address City/[facility]/ZIP Co de Phone Number [facility] [address] [place] [address] * Progesterone (06/23/2024 7:53 AM EST) [facility] Progesterone 42.6 ng/mL LAB IMMUNOASSAY METHOD 06/23/2024 [...] 46.5-160 Progesterone is performed using the Faith [employer] Access Immunoassay. Progesterone testing is performed using a different test methodology at [facility] than other [facility]. Direct result comparison should only be made within the same method. Americaroxy Chavez ROLLER LEVELER OPERATOROversight SystemsFIELD SUPERVISOR LAB BLOOD ORDERABLES Final Result Performing Organization Address City/[facility]/ZIP Co de Phone Number [facility] [id number] [place] [address] documented in this encounter Visit Diagnoses Diagnosis Female infertility, unspecified documented in this encounter Care Teams Market Development Analyst Relationship Specialty Start Date End Date Allyssa Robles, RN Registered Nurse Reproductive Endocrinology and Infertility 12/25/23 documented as of this encounter
--- OUTSIDE RECORDS SUMMARY | 2025-01-27 16:07 | XMS_ITS | Encounter Summary ---
Author Organization [facility] Address [address] [place] [address] Phone Care Team Providers Care Pea Viner Mechanic Name Role Phone Allyssa Robles RN Unavailable Unavailable Encounter Details Date Type Department Care Team (Late st Contact Info) Description 06/30/2024 Lab Requisition [facility] [address] [place] [address] Leigh Ann Tuttle MD [address] [facility] Alexia Darío [place], [address] [phone] Female infertility, unspecified 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 Tobacco Use [...] performed using a different test methodology at [facility] than other [facility]. Direct result comparison should only be made within the same method. us Leigh Ann Tuttle MD LAB BLOOD ORDERABLES Final Re sult [facility] [address] [place] [address] documented in this encounter Visit Diagnoses Diagnosis Female infertility, unspecified documented in this encounter Care Teams Pea Viner Mechanic Relationship Specialty Start Date End Date Allyssa Robles, MISHEL Registered Nurse Reproductive Endocrinology and Infertility 12/25/23 documented as of this encounter
--- OUTSIDE RECORDS SUMMARY | 2025-01-27 16:07 | XMS_ITS | Encounter Summary ---
Author Organization [facility] Address [address] [place] [address] Phone Care Team Providers Care Senior Clinical Project Manager Name Role Phone Allyssa Robles RN Unavailable Unavailable Encounter Details Date Type Department Care Team (Late st Contact Info) Description 06/06/2024 Lab Requisition [facility] [address] [place] [phone] America Chavez, SPEECH PATHOLOGY TEACHER-DIESEL POWER MECHANIC [address] [place] [address] Female infertility, unspecified 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 Tobacco Use [...] 20 ADULT MALE < 40 America Chavez SPEECH PATHOLOGY TEACHER-DIESEL POWER MECHANIC LAB BLOOD ORDERABLES Final Result [facility] [address] [place] [phone] * Progesterone (06/06/2024 7:00 AM EST) Progesterone [...] Trimester 46.5-160 Progesterone is performed using the Flexiroam Access Immunoassay. Progesterone testing is performed using a different test methodology at [facility]] than other [facility]. Direct result comparison should only be made within the same method. America Chavez SPEECH PATHOLOGY TEACHER-DIESEL POWER MECHANIC LAB BLOOD ORDERABLES Edite d Result - Final [facility] [address] [place] [phone] documented in this encounter Visit Diagnoses Diagnosis Female infertility, unspecified documented in this encounter Care Teams Senior Clinical Project Manager Relationship Specialty Start Date End Date Allyssa Robles, RN Registered Nurse Reproductive Endocrinology and Infertility 12/25/23 documented as of this encounter
--- OUTSIDE RECORDS SUMMARY | 2025-01-27 16:07 | XMS_ITS | Encounter Summary ---
Author Organization [facility] Address [address] [place] [address] Care Team Providers Care Ion Exchange Operator Name Role Phone Unavailable Primary Care Provider Unavailabl e Encounter Details Date Type Department Care Team (Late st Contact Info) Description 01/16/2025 Bamboo flowsheet [facility] David ZACARIAS [address] [place] [address] Layo Courtney DO [address] [facility] [place] [address] 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 Tobacco Use Types Packs/Day [...] PM EDT Routine [facility] David [facility]ACARIAS [address] [facility] [place] [address] Maria M Guerrero, MARGARITO [address] [facility] [place] [address] documented as of this encounter Visit Diagnoses Not on filedocumented in this encounter
--- OUTSIDE RECORDS SUMMARY | 2025-01-27 16:07 | XMS_ITS | Encounter Summary ---
Author Organization [facility] Address [address] [place] [address] Care Team Providers Care Shank Scourer Name Role Phone Unavailable Primary Care Provider Unavailabl e Encounter Details Date Type Department Care Team (Late st Contact Info) Description 04/13/2023 Clinisync Result Encounter NOM[facility] External Department Unsolicited Rula Courtney DO [address] [facility] [place] [address] 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 Tobacco Use Types [...] PM EDT Routine [facility] David ZACARIAS [address] [facility] [address] Maria M Guerrero, MARGARITO [address] [facility] [place] [address] documented as of this encounter Procedures Procedure Name Priority Date/Time Associated Diagnosis Comments FL HYSTEROSALPINGOGRAM 10:54 AM EST documented in this encounter Results * FL HYSTEROSALPINGOGRAM (04/13/2023 10:54 AM EST) Anatomical Region Laterality Modality Other 04/13/2023 10:5 4 AM EST Narrative 04/13/2023 10:56 [place] [address] Fluoroscopy Report Signed Patient: OLENA PEREYRA MR#: [id number] : 1995 Acct:[id number] Age/Sex: 27 / F ADM Date: 04/10/23 Loc: LAB Attending Dr: Rula Courtney D.O. Ordering Physician: Rula Courtney D.O. Date of Service: 04/10/23 Procedure(s): FL Hysterosal cath placement Accession Number(s): [id number] cc: Rula Courtney D.O.; Physician,Non-Staff [place] [id number] Patient Name: OELNA PEREYRA MRN: [id number] date: 1995 Sex: F Assigned Patient Location: LAB Current Patient Location: LAB Accession/Order Number: [id number] Exam Date: 04/10/2023 14:30 Report Date: 04/13/2023 10:54 At the request of: RULA COURTNEY Procedure: FL Hysterosal cath placement EXAM: FL Hysterosal cath placement HISTORY: Infertility TECHNIQUE: FINDINGS: Please see Operative Report. Electronically authenticated by: DARRYN LONDON Date: 04/13/2023 10:54 Dictated By: Darryn London Signed By: 04/13/23 1056 DD/ 1054 TD/TT: Enterprise Application Developer: Procedure Note Radiology, Radiologist, MD - 04/13/2023 [place] [address] Fluoroscopy Report Signed Patient: OLENA PEREYRA RMR#: [id number] : 1995Acct:[id number] Age/Sex: 27 / FADM Date: 04/10/23 Loc: LAB Attending Dr: Rula Courtney D.O. Ordering Physician: Rula Courtney D.O. Date of Service: 04/10/23 Procedure(s): FL Hysterosal cath placement Accession Number(s): [id number] cc: Rula Courtney D.O.; Physician,Non-Staff Steven The [place] [id number] Patient Name: OLENA PEREYRA MRN: [id number] date: 1995 Sex: F Assigned Patient Location: LAB Current Patient Location: LAB Accession/Order Number: [id number] Exam Date: 04/10/2023 14:30 Report Date: 04/13/2023 10:54 At the request of: RULA COURTNEY Procedure: FL Hysterosal cath placement EXAM: FL Hysterosal cath placement HISTORY: Infertility TECHNIQUE: FINDINGS: Please see Operative Report. Electronically authenticated by: DARRYN LONDON Date: 04/13/2023 10:54 Dictated By: Darryn London Signed By:04/13/23 1056 DD/ 1054 TD/TT: Enterprise Application Developer: us Rula Courtney DO [facility] Final Result documented in this encounter Visit Diagnoses Not on filedocumented in this encounter
--- OUTSIDE RECORDS SUMMARY | 2025-01-27 16:07 | XMS_ITS | Encounter Summary ---
Author Organization [facility] Address [address] [place] [address] Care Team Providers Care Edge Bander Hand Name Role Phone Unavailable Primary Care Provider Unavailabl e Encounter Details Date Type Department Care Team (Late st Contact Info) Description 01/22/2024 Abstract [facility] Yanira ZACARIAS [address] [place] [address] Layo Courtney DO [address] [place] [address] 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 Tobacco Use Types [...] 1:50 PM EDT Routine NOMKenisha ZACARIAS [address] [place] [address] Maria M Guerrero, MARGARITO [address] [place] [address] documented as of this encounter Visit Diagnoses Not on filedocumented in this encounter
--- OUTSIDE RECORDS SUMMARY | 2025-01-27 16:07 | XMS_ITS | Encounter Summary ---
Author Organization [facility] Address [address] [place] [address] Care Team Providers Care Tangled Yarn Spool Straightener Name Role Phone Unavailable Primary Care Provider Unavailabl e Encounter Details Date Type Department Care Team (Late st Contact Info) Description 11/08/2024 Abstract [facility] Yanira ZACARIAS [address] [facility] [address] Emilia Donahue MA 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 Tobacco [...] 1:50 PM EDT Routine NOMKenisha ZACARIAS [address] [facility] [address] Maria M Guerrero, MARGARITO [address] [facility] [place] [address] documented as of this encounter Visit Diagnoses Not on filedocumented in this encounter
--- OUTSIDE RECORDS SUMMARY | 2025-01-27 16:07 | XMS_ITS | Encounter Summary ---
Author Organization [facility] Address [address] [place] [address] Care Team Providers Care Rn Clinical Research Name Role Phone Unavailable Primary Care Provider Unavailabl e Encounter Details Date Type Department Care Team (Late st Contact Info) Description 01/24/2025 Clinisync Result Encounter NOMS External Department Unsolicited Rula Courtney DO [address] [place] [address] 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 Tobacco Use Types [...] PM EDT Routine [facility] David OBGYN [address] [facility] [place] [address] Maria M Guerrero, MARGARITO [address] [facility] [place] [address] documented as of this encounter Procedures Procedure Name Priority Date/Time Associated Diagnosis Comments US OB BPP W NON-STRESS 01/24/2025 7:55 PM EDT documented in this encounter Results * US OB BPP W NON-STRESS (01/24/2025 7:55 PM EDT) Anatomical Region Laterality Modality Other 01/24/2025 7:55 PM EDT Narrative 01/24/2025 7:58 PM EDT [place] [id number] Ultrasound Report Signed Patient: OLENA GARCIA MR#: [id number] : 1995 Acct:[id number] Age/Sex: 29 / F ADM Date: 01/24/25 Loc: US Attending Dr: Rula Courtney D.O. Ordering Physician: Rula Courtney D.O. Date of Service: 01/24/25 Procedure(s): US OB BPP w non-stress Accession Number(s): [id number] cc: Rula Courtney D.O.; Physician,Non-Staff Steven [address] [address] Patient Name: OLENA GARCIA MRN: [id number] date: 1995 Sex: F Assigned Patient Location: [facility] Current Patient Location: Accession/Order Number: [id number] Exam Date: 01/24/2025 16:10 Report Date: 01/24/2025 19:55 At the request of: RULA COURTNEY DO Procedure: US OB BPP w non-stress Biophysical profile. Reason for exam: resulting in vitro fertilization COMPARISON: 01/17/2025 TECHNIQUE: Transabdominal imaging of the gravid uterus was obtained. FINDINGS: The quill machine tender reports a BPP of 6 out of 8 with 0/2 for gross body movements.. LONNY is normal at 11.9 cm. heart rate 148 bpm. US/US OB BPP w non-stress IMPRESSION: BPP 6out of 8. Correlation with NST is suggested. Impression dictated by: Juan Salinas Jr., D.O. 01/24/2025 7:55 PM Dictation Location: [place] [address] Electronically authenticated by: [id number] Y Date: 01/24/2025 19:55 Dictated By: Juan Salinas M.D. Signed By: 01/24/251957 DD/ 54 TD/TT: Boiler Helper: Procedure Note Radiology, Radiologist, MD - 01/24/2025 [place] [address] Ultrasound Report Signed Patient: OLENA GARCIA RMR#: [id number] : 1995Acct:[id number] Age/Sex: 29 / FADM Date: 01/24/25 Loc: US Attending Dr: Rula Courtney D.O. Ordering Physician: Rula Courtney D.O. Date of Service: 01/24/25 Procedure(s): US OB BPP w non-stress Accession Number(s): [id number] cc: Rula Courtney D.O.; Physician,Non-Staff Steven The [place] [address] Patient Name: OLENA GARCIA MRN: [facility]:[id number] date: 1995 Sex: F Assigned Patient Location: [facility] Current Patient Location: Accession/Order Number: [id number] Exam Date: 01/24/2025 16:10 Report Date: 01/24/2025 19:55 At the request of: RULA COURTNEY DO Procedure: US OB BPP w non-stress Biophysical profile. Reason for exam: resulting in vitro fertilization COMPARISON: 01/17/2025 TECHNIQUE: Transabdominal imaging of the gravid uterus was obtained. FINDINGS: The quill machine tender reports a BPP of 6 out of 8 with 0/2 for grossbody movements.. LONNY is normal at 11.9 cm. heart rate 148 bpm. US/US OB BPP w non-stress IMPRESSION: BPP 6out of 8. Correlation with NST is suggested. Impression dictated by: Juan Salinas Jr., D.O. 01/24/2025 7:55 PM Dictation Location: [place] Electronically authenticated by: [id number] Y Date: 9:55 Dictated By: Juan Salinas M.D. Signed By:01/24/251957 DD/ 54 TD/TT: Boiler Helper: us Rula Courtney DO [facility] Final Result documented in this encounter Visit Diagnoses Not on filedocumented in this encounter
--- OUTSIDE RECORDS SUMMARY | 2025-01-27 16:07 | XMS_ITS | Encounter Summary ---
Author Organization [facility] Address [address] [place] [address] Phone Care Team Providers Care Entry Level Chemist Name Role Phone Allyssa Robles RN Unavailable Unavailable Encounter Details Date Type Department Care Team (Late st Contact Info) Description 06/13/2024 Lab Requisition [facility] [place] [address] [place] [address] Juan Chavarria MD 1000 [facility] Alexia Darío [place], [address] [phone] Female infertility, unspecified 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 Tobacco Use [...] LAB IMMUNOASSAY METHOD 06/13/2024 2:07 PM EST [facility] Blood Venous blood specimen / Unknown 06/13/2024 11:38 AM EST 06/13/2024 12:46 PM EST Narrative [facility] - 06/13/2024 2:07 PM EST REF VALUES Male <0.2-0.8 Follicular Phase <0.2-1.5 Luteal Phase 7.4-15.4 Post Menopausal <0.2-0.2 1ST Trimester 12.0-84.0 2ND Trimester 10.2-58.8 3RD Trimester 46.5-160 Progesterone is performed using the [employer] Access Immunoassay. Progesterone testing is performed using a different test methodology at [facility] than other [facility]. Direct result comparison should only be made within the same method. us Juan Chavarria MD LAB BLOOD ORDERABLES Final R esult [facility] [address] [place] [address] documented in this encounter Visit Diagnoses Diagnosis Female infertility, unspecified documented in this encounter Care Teams Entry Level Chemist Relationship Specialty Start Date End Date Allyssa Robles, RN Registered Nurse Reproductive Endocrinology and Infertility 12/25/23 documented as of this encounter
--- OUTSIDE RECORDS SUMMARY | 2025-01-27 16:07 | XMS_ITS | Encounter Summary ---
Author Organization [facility] Address [address] [place] [address] Care Team Providers Care Cane Flume Feeding Machine Operator Name Role Phone Unavailable Primary Care Provider Unavailabl e Encounter Details Date Type Department Care Team (Late st Contact Info) Description 01/21/2024 Orders Only NOMKenisha ZACARIAS [address] [facility] [place] [address] Marilia Elder MA [address] [facility] [address] 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 Tobacco Use Types Packs/Day Years [...] 1:50 PM EDT Routine NOMKenisha ZACARIAS [address] [facility] [place] [address] Maria M Guerrero, MARGARITO [address] [facility] [place] [address] documented as of this encounter Procedures [...]
--- OUTSIDE RECORDS SUMMARY | 2025-01-27 16:07 | XMS_ITS | Encounter Summary ---
Author Organization [facility] Address [address] [place] [address] Care Team Providers Care Admissions Gate Attendant Name Role Phone Unavailable Primary Care Provider Unavailabl e Encounter Details Date Type Department Care Team (Late st Contact Info) Description 04/10/2023 Clinisync Result Encounter NOMS External Department Unsolicited Rula Courtney DO [address] [facility] [address] [place], [place] [phone] 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 Tobacco Use Types Packs/Day Years [...] PM EDT Routine [facility] David ZACARIAS [address] [facility] [place] [address] Maria M Guerrero, MARGARITO [address] [facility] [place] [address] documented as of this encounter Procedures Procedure Name Priority Date/Time Associated Diagnosis Comments FL HYSTEROSALPINGOGRAPHY 023 3:10 PM EST documented in this encounter Results * FL HYSTEROSALPINGOGRAPHY (04/10/2023 3:10 PM EST) Anatomical Region Laterality Modality Other 04/10/2023 3:10 PM EST Narrative 04/10/2023 3:13 PM EST The [address] [address] Fluoroscopy Report Signed Patient: OLENA PEREYRA MR#: [id number] : 1995 Acct:[id number] Age/Sex: 27 / F ADM Date: 04/10/23 Loc: LAB Attending Dr: Rula Courtney D.O. Ordering Physician: Rula Courtney D.O. Date of Service: 04/10/23 Procedure(s): FL hysterosalpingography Accession Number(s): [id number] cc: Rula Courtney D.O.; Physician,Non-Staff Steven The [address] [address] Patient Name: OLENA PEREYRA MRN: [id number] date: 1995 Sex: F Assigned Patient Location: LAB Current Patient Location: Accession/Order Number: [id number] Exam Date: 04/10/2023 14:30 Report Date: 04/10/2023 [...] M.D. Signed By: 04/10/231512 DD/ 09 TD/TT: Food Mixer Repairer: Procedure Note Radiology, Radiologist, MD - 04/10/2023 [place] [address] Fluoroscopy Report Signed Patient: OLENA PEREYRA RMR#: [id number] : 1995Acct:[id number] Age/Sex: 27 / FADM Date: 04/10/23 Loc: LAB Attending Dr: Rula Courtney D.O. Ordering Physician: Rula Courtney D.O. Date of Service: 04/10/23 Procedure(s): FL hysterosalpingography Accession Number(s): [id number] cc: Rula Courtney D.O.; Physician,Non-Staff Steven The [place] [address] Patient Name: OLENA PEREYRA MRN: [id number] date: 1995 Sex: F Assigned Patient Location: LAB Current Patient Location: Accession/Order Number: [id number] Exam Date: 04/10/2023 14:30 Report Date: 04/10/2023 [...] IMPRESSION: Normal exam Electronically authenticated by: SRIDHAR LAIENZ Date: 04/10/2023 15:10 Dictated By: Sridhar Lainez M.D. Signed By:04/10/23 151 DD/ 09 TD/TT: Food Mixer Repairer: us Rula Courtney DO [facility] Final Result documented in this encounter Visit Diagnoses Not on filedocumented in this encounter
--- OUTSIDE RECORDS SUMMARY | 2025-01-27 16:07 | XMS_ITS | Encounter Summary ---
Author Organization [facility] Address [address] [place] [address] Care Team Providers Care Claims Analyst Name Role Phone Unavailable Primary Care Provider Unavailabl e Encounter Details Date Type Department Care Team (Late st Contact Info) Description 09/21/2024 Abstract [facility] Yanira ZACARIAS [address] [place] [address] Layo Courtney DO [address] [facility] [place] [address] 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 Tobacco Use Types [...] 1:50 PM EDT Routine NOMKenisha ZACARIAS [address] [place] [address] Maria M Guerrero NP [address] [facility] [place] [address] documented as of this encounter Visit Diagnoses Not on filedocumented in this encounter
--- OUTSIDE RECORDS SUMMARY | 2025-01-27 16:07 | XMS_ITS | Clinical Summary ---
Author Organization [facility] Address [address] [place] [address] Phone Care Team Providers Care Correctional Food Service Supervisor Name Role Phone Allyssa Robles RN Unavailable Unavailable Allergies Active Allergy Reactions Criticality Noted Date Comments Latex Rash Low 2023 Nickel Rash Low 2023 Medications [id number]- folic-omega3 29-1-400 mg combo pack,tablet and cap,DR [...] 2072 Meningococcal Vaccine Aged Out 12/20/2009 No irvni dee eligible based on patient's age to [...] C Antibody (2023 10:21 AM EDT) Pathologist [facility] Hepatitis C Anitbody Nonreactive Nonreactive LAB IMMUNOASSAY METHOD 2023 7:11 PM EDT [facility] Comment:Results from patient s taking biotin supplements or receiving high-dose biotin therapy should be interpreted with caution due to possible interference with this test. Providers may contact their local laboratory for further information. Blood Venous blood specimen / Unknown Venipuncture / Unknown 2023 10:21 AM EDT 2023 10:21 AM EDT us Trish Sun SERVICE CAR OPERATOR-TAXICAB DISPATCHER LAB BLOOD ORDERABLES Fin al Result [facility] [id number] [place], [place] [id number] * HIV 1/2 Antigen/Antibody Screen with Reflex to Confirmation (2023 10:21 AM EDT) HIV 1/2 Antigen/Antibo dy Screen with Reflex to Confirmation Nonreactive Nonreactive LAB IMMUNOASSAY METHOD 2023 7:37 PM EDT [facility] Blood Venous blood specimen / Unknown Venipuncture / Unknown 2023 10:21 AM EDT 2023 10:21 AM EDT Narrative [facility] - 2023 7:37 PM EDT HIV Ag/Ab screen is performed using the Siemens BodyGuardz HIV Ag/Ab Combo assay which detects the presence of HIV p24 antigen as well as antibodies to HIV-1 (Group M and O) and HIV-2. No laboratory evidence of HIV infection. If acute HIV infection is suspected, consider testing for HIV RNA by PCR (viral load). Trish Sun SERVICE CAR OPERATOR-TAXICAB DISPATCHER LAB BLOOD ORDERABLES Fin al Result [facility] [address] [facility] [id number] [place] [address] from Last 3 Months or Most Recently Relevant to Health Maintenance Insurance [employer] [place] [employer] [place] [employer] Care Teams Correctional Food Service Supervisor Relationship Specialty Start Date End Date Allyssa Robles, RN Registered Nurse Reproductive Endocrinology and Infertility 12/25/23
--- OUTSIDE RECORDS SUMMARY | 2025-01-27 16:07 | XMS_ITS | Encounter Summary ---
Author Organization [facility] Address [address] [place] [address] Care Team Providers Care Roll Grinder Operator Name Role Phone Unavailable Primary Care Provider Unavailabl e Encounter Details Date Type Department Care Team (Late st Contact Info) Description 01/25/2025 Clinisync Result Encounter [facility] External Department Unsolicited Rula Courtney DO [address] [address] 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 Tobacco Use Types [...] [address] [facility] [place] [address] Maria M Guerrero, MARGARITO [address] [facility] [place] [address] documented as of this encounter Procedures Procedure Name Priority Date/Time Associated Diagnosis Comments US OB BPP W NON-STRESS 01/25/2025 6:24 PM EDT documented in this encounter Results * US OB BPP W NON-STRESS (01/25/2025 6:24 PM EDT) Anatomical Region Laterality Modality Other 01/25/2025 6:24 PM EDT Narrative 01/25/2025 6:27 PM EDT [address] [address] Ultrasound Report Signed Patient: OLENA GARCIA MR#: [id number] : 1995 Acct:[id number] Age/Sex: 29 / F ADM Date: 01/25/25 Loc: US Attending Dr: Rula Courtney D.O. Ordering Physician: Rula Courtney D.O. Date of Service: 01/25/25 Procedure(s): US OB BPP w non-stress Accession Number(s): [id number] cc: Rula Courtney D.O.; Physician,Non-Staff Steven [address] [address] Patient Name: OLENA GARCIA MRN: [id number] date: 1995 Sex: F Assigned Patient Location: [facility] Current Patient Location: US Accession/Order Number: [id number] Exam Date: 01/25/2025 16:50 Report Date: 01/25/2025 18:24 At the request of: RULA COURTNEY DO Procedure: US OB BPP w non-stress Ultrasound biophysical profile INDICATION: Abnormal biophysical profile 01/24/2025 FINDINGS: The clock mechanic reports a BPP of 8 out of 8 LONNY is normal at 10.9 cm. heart rate 134. Heterogeneous appearance of the placenta hypoechoic focus measuring 1.3 x 2.8 x 2.0 cm in size. US/US OB BPP w non-stress IMPRESSION: BPP 8 out of 8. Impression dictated by: Bernabe Romero M.D. 01/25/2025 6:24 PM Dictation Location: [place] [address] Electronically authenticated by: [id number] Y Date: 01/25/2025 18:24 Dictated By: Bernabe Romero M.D. Signed By: 01/25/251826 DD/ 23 TD/TT: Distributor Sales Consultant: Procedure Note Radiology, Radiologist, MD - 01/25/2025 [facility] [place] [id number] Ultrasound Report Signed Patient: OLENA GARCIA RMR#: [id number] : 1995Acct:[id number] Age/Sex: 29 / FADM Date: 01/25/25 Loc: US Attending Dr: Rula Courtney D.O. Ordering Physician: Rula Courtney D.O. Date of Service: 01/25/25 Procedure(s): US OB BPP w non-stress Accession Number(s): [id number] cc: Rula Courtney D.O.; Physician,Non-Staff Steven [facility] [place] [id number] Patient Name: OLENA GARCIA MRN: [id number] date: 1995 Sex: F Assigned Patient Location: [facility] Current Patient Location: US Accession/Order Number: [id number] Exam Date: 01/25/2025 16:50 Report Date: 01/25/2025 18:24 At the request of: RULA COURTNEY DO Procedure: US OB BPP w non-stress Ultrasound biophysical profile INDICATION: Abnormal biophysical profile 01/24/2025 FINDINGS: The clock mechanic reports a BPP of 8 out of 8 LONNY is normal at10.9 cm. heart rate 134. Heterogeneous appearance of the placenta hypoechoic focus measuring 1.3 x 2.8 x 2.0 cm in size. US/US OB BPP w non-stress IMPRESSION: BPP 8 out of 8. Impression dictated by: Bernabe Romero M.D. 01/25/2025 6:24 PM Dictation Location: [place] [address] Electronically authenticated by: [id number] Y Date: 8:24 Dictated By: Bernabe Romero M.D. Signed By:01/25/251826 DD/ 23 TD/TT: Distributor Sales Consultant: us Rula Courtney DO [facility] Final Result documented in this encounter Visit Diagnoses Not on filedocumented in this encounter
--- OUTSIDE RECORDS SUMMARY | 2025-01-27 16:07 | XMS_ITS | Encounter Summary ---
Author Organization [facility] Address [address] [place] [address] Care Team Providers Care Stable Helper Name Role Phone Unavailable Primary Care Provider Unavailabl e Encounter Details Date Type Department Care Team (Late st Contact Info) Description 01/18/2025 Clinisync Result Encounter [facility] External Department Unsolicited Rula Courtney DO [address] [place] [address] 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 Tobacco Use Types [...] PM EDT Routine [facility] [address] [facility] [address] Maria M Guerrero, MARGARITO [address] [facility] [place] [address] documented as of this encounter Procedures Procedure Name Priority Date/Time Associated Diagnosis Comments US OB BPP W NON-STRESS 01/18/2025 9:02 AM EDT documented in this encounter Results * US OB BPP W NON-STRESS (01/18/2025 9:02 AM EDT) Anatomical Region Laterality Modality Other 01/18/2025 9:02 AM EDT Narrative 01/18/2025 9:05 AM EDT [address] [address] Ultrasound Report Signed Patient: OLENA GARCIA MR#: [id number] : 1995 Acct:[id number] Age/Sex: 29 / F ADM Date: 01/17/25 Loc: US Attending Dr: Rula Courtney D.O. Ordering Physician: Rula Courtney D.O. Date of Service: 01/17/25 Procedure(s): US OB BPP w non-stress Accession Number(s): [id number] cc: Rula Courtney D.O.; Physician,Non-Staff Steven [address] [address] Patient Name: OLENA GARCIA MRN: [id number] date: 1995 Sex: F Assigned Patient Location: [facility] Current Patient Location: Accession/Order Number: [id number] Exam Date: 01/17/2025 16:08 Report Date: 01/18/2025 [...] [place] M.D. 01/18/2025 9:02 AM Dictation Location: [place] [address] Electronically authenticated by: [id number] Y Date: 01/18/2025 09:02 Dictated By: Mariela Toledo M.D. Signed By: 01/18/25904 DD/ 1 TD/TT: Industrial Electrical Engineer: Procedure Note Radiology, Radiologist, MD - 01/18/2025 [place] [address] Ultrasound Report Signed Patient: OLENA GARCIA RMR#: [id number] : 1995Acct:[id number] Age/Sex: 29 / FADM Date: 01/17/25 Loc: US Attending Dr: Rula Courtney D.O. Ordering Physician: Rula Courtney D.O. Date of Service: 01/17/25 Procedure(s): US OB BPP w non-stress Accession Number(s): [id number] cc: Rula Courtney D.O.; Physician,Non-Staff Steven The [address] [id number] Patient Name: OLENA GARCIA MRN: [id number] date: 1995 Sex: F Assigned Patient Location: [facility] Current Patient Location: Accession/Order Number: [id number] Exam Date: 01/17/2025 16:08 Report Date: 01/18/2025 09:02 At the request of: RULA COURTNEY DO Procedure: US OB BPP w non-stress BIOPHYSICAL PROFILE: CLINICAL INFORMATION: resulting from in vitro [id number] COMPARISON: 01/10/2025 There is a single live [...] [place] M.D. 01/18/2025 9:02 AM Dictation Location: [place] [address] Electronically authenticated by: [id number] Y Date: 9:02 Dictated By: Mariela [place]edo M.D. Signed By:01/18/25904 DD/ 1 TD/TT: Industrial Electrical Engineer: Rula Courtney DO [facility] Final Result documented in this encounter Visit Diagnoses Not on filedocumented in this encounter
--- OUTSIDE RECORDS SUMMARY | 2025-01-27 16:07 | XMS_ITS ---
Author Organization [facility] Address [address] [place] [address] Phone Care Team Providers Care Government Contracts Manager Name Role Phone Allyssa Robles RN Unavailable Unavailable Fertility Core Status:Enrolled (Active) Start date:02/24/2024 Enrollment date:02/29/2024 Enrollment reason:Identified from a specialty prescription Current support & services provided:Refill Management, Benefits and PA Management Linked medications:lidocaine/prilocaine (Active), progesterone (Active), transparent dressing () Continued Care and Services Coordination
--- OUTSIDE RECORDS SUMMARY | 2025-01-27 16:07 | XMS_ITS | Clinical Summary ---
Author Organization [facility] Address [address] [place] [address] Care Team Providers Care Archives Specialist Name Role Phone Unavailable Primary Care [...] Encounters Date Type Department Care Team Description 01/25/2025 Clinisync Result Encounter NOMS External Department Unsolicited Rula Courtney, 01/24/2025 Clinisync Result Encounter NOMS External Department Unsolicited Rula Courtney, DO 01/18/2025 Clinisync Result Encounter NOMS External Department Unsolicited Rula Courtney, 01/16/2025 2:50 PM EDT Routine [facility] David ZACARIAS [address] [place] [address] [place] [phone] Rula Courtney, DO 33 weeks gestation of ([facility]); Third trimester ([facility]); Group B streptococcal infection; resulting from in vitro fertilization in first trimester ([facility]) 01/16/2025 Bamboo flowsheet [facility] [address] [facility] [place] [address] Rula Courtney, 01/10/2025 Clinisync Result Encounter NOMS External Department Unsolicited Rula Courtney, 01/03/2025 10:00 AM EDT Routine [facility] [place] [address] Rula Courtney, Third trimester ([facility]); 31 weeks gestation of ([facility]); resulting from in vitro fertilization in third trimester ([facility]) 01/03/2025 Bamboo flowsheet [facility] David DE SOUZAN [address] [facility] [place] [address] Rula Courtney, 12/21/2024 Telephone [facility] David Vicente [facility] [place] [address] Ev Eldersol [place] 12/19/2024 10:00 AM EDT Routine [facility] David Vic[facility] [place] [address] Rula Courtney, 29 weeks gestation of ([facility]); Third trimester ([facility]); Leukocytes in urine; Other microscopic hematuria 12/19/2024 9:30 AM EDT [place] [address] resulting from in vitro fertilization in second trimester ([facility]) 12/06/2024 8:30 [place] [address] Rula Courtney, 27 weeks gestation of ([facility]); Second trimester ([facility]); resulting from in vitro fertilization in second trimester ([facility]) 12/06/2024 Clinisync Result Encounter NOMS External Department Unsolicited Rula Courtney, DO 12/06/2024 Bamboo flowsheet [facility] David DE SOUZAN [address] [facility] [place] [phone] Rula Courtney, DO 11/28/2024 Telephone [facility] David TIPTONGYN [address] [facility] [place] [phone] Rula Courtney, DO 11/26/2024 Clinisync Result Encounter NOMS External Department Unsolicited Rula Courtney, DO 11/18/2024 Abstract [facility] David DE SOUZAN [address] [facility] [place] [phone] Rula Courtney, DO 11/08/2024 2:40 PM EDT Routine [facility]S aDvid ZACARIAS [address] [place] [phone] Rula Courtney, DO Second trimester ([facility]); 26 weeks gestation of ([facility]); Diabetes mellitus screening 11/08/2024 Abstract [facility] David DE SOUZAN [address] [facility] [place] [phone] Emilia Donahue MA from Last 3 Months [...] EDT Routine [facility] [address] [facility] [place] [phone] Maria M Guerrero, SAP INTEGRATION ARCHITECT [address] [facility] [place] [address] Procedures Procedure Name Priority Date/Time Associated Diagnosis Comments US OB BPP W NON-STRESS 01/25/2025 6:24 PM EDT US OB BPP W NON-STRESS 01/24/2025 7:55 PM EDT US OB BPP W NON-STRESS 01/18/2025 9:02 AM EDT POCT URINALYSIS DIPSTICK Routine 01/16/2025 3:20 PM EDT 33 weeks gestation of ([facility]) Third trimester ([facility]) US OB BPP W NON-STRESS 01/10/2025 9:07 PM EDT POCT URINALYSIS DIPSTICK Routine 01/03/2025 10:22 AM EDT Third trimester ([facility]) 31 weeks gestation of ([facility]) URINARY TRACT INFECTION (HTRX) Routine 12/19/2024 11:28 AM EDT POCT URINALYSIS DIPSTICK Routine 12/19/2024 10:11 AM EDT 29 weeks gestation of ([facility]) Third trimester ([facility]) US OB FOLLOW UP TRANSABDOMINAL APPROACH Routine 12/19/2024 9:56 AM EDT resulting from in vitro fertilization in second trimester ([facility]) GLUCOSE TOLERANCE 3 HOUR Routine 12/06/2024 11:26 AM EDT POCT URINALYSIS DIPSTICK Routine 12/06/2024 8:40 AM EDT 27 weeks gestation of ([facility]) Second trimester ([facility]) GLUCOSE 1 HOUR Routine 11/26/2024 10:03 AM EDT ALL CBC WITH AUTO DIFF Routine 10:03 AM EDT POCT URINALYSIS DIPSTICK Routine 11/09/2024 11:39 AM EDT Second trimester ([facility]) 26 weeks gestation of ([facility]) from Last 3 Months Results * US OB BPP W NON-STRESS (01/25/2025 6:24 PM EDT) Only the most recent of4 resultswithin the time period is included. Anatomical Region Laterality Modality Other 01/25/2025 6:24 PM EDT Narrative 01/25/2025 6:27 [place] [address] Ultrasound Report Signed Patient: OLENA GARCIA MR#: [id number] : 1995 Acct:[id number] Age/Sex: 29 / F ADM Date: 01/25/25 Loc: US Attending Dr: Rula Courtney D.O. Ordering Physician: Rula Courtney D.O. Date of Service: 01/25/25 Procedure(s): US OB BPP w non-stress Accession Number(s): [id number] cc: Rula Courtney D.O.; Physician,Non-Staff M.Nadir [address] [id number] Patient Name: OLENA GARCIA MRN: [facility]:[id number] date: 1995 Sex: F Assigned Patient Location: [facility] Current Patient Location: US Accession/Order Number: [id number] Exam Date: 01/25/2025 16:50 Report Date: 01/25/2025 18:24 At the request of: RULA COURTNEY DO Procedure: US OB BPP w non-stress Ultrasound biophysical profile INDICATION: Abnormal biophysical profile 01/24/2025 FINDINGS: The lay out and detail drafter reports a BPP of 8 out of 8 LONNY is normal at 10.9 cm. heart rate 134. Heterogeneous appearance of the placenta hypoechoic focus measuring 1.3 x 2.8 x 2.0 cm in size. US/US OB BPP w non-stress IMPRESSION: BPP 8 out of 8. Impression dictated by: Bernabe Romero M.D. 01/25/2025 6:24 PM Dictation Location: [place] [address] Electronically authenticated by: [id number] Y Date: 01/25/2025 18:24 Dictated By: Bernabe Romero M.D. Signed By: 01/25/251826 DD/ 23 TD/TT: Rubber Covering Machine Operator: Procedure Note Radiology, Radiologist, MD - 01/25/2025 [place] [address] Ultrasound Report Signed Patient: OLENA GARCIA RMR#: [id number] : 1995Acct:[id number] Age/Sex: 29 / FADM Date: 01/25/25 Loc: US Attending Dr: Rula Courtney D.O. Ordering Physician: Rula Courtney D.O. Date of Service: 01/25/25 Procedure(s): US OB BPP w non-stress Accession Number(s): [id number] cc: Rula Courtney D.O.; Physician,Non-Staff Steven [place] [phone] Patient Name: OLENA GARCIA MRN: [facility]:[id number] date: 1995 Sex: F Assigned Patient Location: [facility] Current Patient Location: Accession/Order Number: [id number] Exam Date: 01/25/2025 16:50 Report Date: 01/25/2025 18:24 At the request of: RULA COURTNEY DO Procedure: US OB BPP w non-stress Ultrasound biophysical profile INDICATION: Abnormal biophysical profile 01/24/2025 FINDINGS: The lay out and detail drafter reports a BPP of 8 out of 8 LONNY is normal at10.9 cm. heart rate 134. Heterogeneous appearance of the placenta hypoechoic focus measuring 1.3 x 2.8 x 2.0 cm in size. US/US OB BPP w non-stress IMPRESSION: BPP 8 out of 8. Impression dictated by: Bernabe Romero M.D. 01/25/2025 6:24 PM Dictation Location: [place] [address] Electronically authenticated by: [id number] Y Date: 8:24 Dictated By: Bernabe Romero M.D. Signed By:01/25/251826 DD/ 23 TD/TT: Rubber Covering Machine Operator: us Rula Courtney DO [facility] [...] TRACT INFECTION (HTRX) (12/19/2024 11:28 AM EDT) [facility] ACINETOBACTER BAUMANII 0 19.961 - 24.689 ppm 12/20/2024 7:51 AM EDT [facility] ACINETOBACTER BAUMANII Not Detected 19.961 - 24.689 ppm 12/20/2024 7:51 AM EDT [facility] CITROBACTER FREUNDII 0 23.000 - 32.015 ppm 12/20/2024 7:51 AM EDT [facility] CITROBACTER FREUNDII Not Detected 23.000 - 32.015 ppm 12/20/2024 7:51 AM EDT [facility] ENTEROBACTER AEROGENES, CLOACAE 0 23.000 - 32.290 ppm 12/20/2024 7:51 AM EDT [facility] ENTEROBACTER AEROGENES, CLOACAE Not Detected 23.000 - 32.290 ppm 12/20/2024 7:51 AM EDT [facility] ENTEROCOCCUS FAECALIS, FAECIUM 0 26.000 - 33.043 ppm 12/20/2024 7:51 AM EDT [facility] ENTEROCOCCUS FAECALIS, FAECIUM Not Detected 26.000 - 33.043 ppm 12/20/2024 7:51 AM EDT [facility] ESCHERICHIA COLI 0 23.000 - 28.500 ppm 12/20/2024 7:51 AM EDT [facility] ESCHERICHIA COLI Not Detected 23.000 - 28.500 ppm 12/20/2024 7:51 AM EDT [facility] KLEBSIELLA PNEUMONIAE, OXYTOCA 0 23.000 - 31.865 ppm 12/20/2024 7:51 AM EDT [facility] KLEBSIELLA PNEUMONIAE, OXYTOCA Not Detected 23.000 - 31.865 ppm 12/20/2024 7:51 AM EDT [facility] MORGANELLA MORGANII 0 19.961 - 24.689 ppm 12/20/2024 7:51 AM EDT [facility] MORGANELLA MORGANII Not Detected 19.961 - 24.689 ppm 12/20/2024 7:51 AM EDT [facility] PROTEUS MIRABILIS, VULGARIS 0 23.000 - 28.500 ppm 12/20/2024 7:51 AM EDT [facility] PROTEUS MIRABILIS, VULGARIS Not Detected 23.000 - 28.500 ppm 12/20/2024 7:51 AM EDT [facility] PSEUDOMONAS AERUGINOSA 0 23.000 - 31.801 ppm 12/20/2024 7:51 AM EDT [facility] PSEUDOMONAS AERUGINOSA Not Detected 23.000 - 31.801 ppm 12/20/2024 7:51 AM EDT [facility] STAPHYLOCOCCUS AUREUS 0 26.000 - 31.595 ppm 12/20/2024 7:51 AM EDT [facility] STAPHYLOCOCCUS AUREUS Not Detected 26.000 - 31.595 ppm 12/20/2024 7:51 AM EDT [facility] STREPTOCOCCUS AGALACTIAE (GROUP B STREP) 30.017(A) 26.000 - 32.435 ppm 12/20/2024 7:51 AM EDT [facility] STREPTOCOCCUS AGALACTIAE (GROUP B STREP) Detected(A) 26.000 - 32.435 ppm 12/20/2024 7:51 AM EDT [facility] PRESTON ALBICANS, PARAPSILOSIS, TROPICALIS 0 23.000 - 30.347 ppm 12/20/2024 7:51 AM EDT [facility] PRESTON ALBICANS, PARAPSILOSIS, TROPICALIS Not Detected 23.000 - 30.347 ppm 12/20/2024 7:51 AM EDT [facility] PRESTON GLABRATA 0 23.000 - 31.618 ppm 12/20/2024 7:51 AM EDT [facility] PRESTON GLABRATA Not Detected 23.000 - 31.618 ppm 12/20/2024 7:51 AM EDT [facility] PRESTON KRUSEI 0 23.000 - 30.873 ppm 12/20/2024 7:51 AM EDT [facility] PRESTON KRUSEI Not Detected 23.000 - 30.873 ppm 12/20/2024 7:51 AM EDT [facility] SERRATIA MARCESCENS 0 23.000 - 31.581 ppm 12/20/2024 7:51 AM EDT [facility] SERRATIA MARCESCENS Not Detected 23.000 - 31.581 ppm 12/20/2024 7:51 AM EDT [facility] STREPTOCOCCUS PYOGENES (GROUP A STREP) 0 19.961 - 24.689 ppm 12/20/2024 7:51 AM EDT [facility] STREPTOCOCCUS PYOGENES (GROUP A STREP) Not Detected 19.961 - 24.689 ppm 12/20/2024 7:51 AM EDT [facility] STAPHYLOCOCCUS EPIDERMIDIS, HAEMOLYTICUS, LUGDUNENSIS, SAPROPHYTICUS (URINA 0 19.961 - 24.689 ppm 12/20/2024 7:51 AM EDT [facility] STAPHYLOCOCCUS EPIDERMIDIS, HAEMOLYTICUS, LUGDUNENSIS, SAPROPHYTICUS (URINA Not Detected 19.961 - 24.689 ppm 12/20/2024 7:51 AM EDT [facility] STAPHYLOCOCCUS EPIDERMIDIS, HAEMOLYTICUS, LUGDUNENSIS, SAPROPHYTICUS (URINA 0 19.961 - 24.689 ppm 12/20/2024 7:51 AM EDT [facility] STAPHYLOCOCCUS EPIDERMIDIS, HAEMOLYTICUS, LUGDUNENSIS, SAPROPHYTICUS (URINA Not Detected 19.961 - 24.689 ppm 12/20/2024 7:51 AM EDT [facility] Urine 12/19/2024 11:2 8 AM EDT 12/20/2024 1:37 AM EDT us Rula Courtney DO LAB BLOOD ORDERABLES Final Resul t [facility] [address] [address] * US OB follow up transabdominal approach [...] II, MD, PHD at 22-Dec-2024 08:03:51 AM [facility] Procedure Note Toiñto Friend MD - 12/22/2024 EXAM: US OB [...] signed by TOÑITO FRIEND II, MD, PHD 08:03:51 AM [facility] us Rula Sherwin DO IMG OB [...] DO LAB BLOOD ORDERABLES Final Resul t [facility] * (ABNORMAL) GLUCOSE 1 HOUR (11/26/2024 10:03 AM EDT) GLUCOSE 1 HOUR 156(H) <130 mg/dL [facility] 11/26/2024 10:0 3 AM EDT 11/26/2024 10:04 AM EDT Narrative JAMILA - 11/26/2024 10:27 AM EDT us Rula Courtney DO LAB BLOOD ORDERABLES Final Resul t JAMIL[facility] * (ABNORMAL) ALL CBC WITH AUTO DIFF (11/26/2024 10:03 AM EDT) [facility] WBC 9.2 4.0 - 11.0 10 [...] Narrative [facility] - 11/26/2024 10:14 AM EDT Rula Courtney DO [facility] Final Result [facility] from Last 3 Months Insurance [employer]
--- OUTSIDE RECORDS SUMMARY | 2025-01-27 16:07 | XMS_ITS | Encounter Summary ---
Author Organization [facility] Address [address] [place] [address] Phone Care Team Providers Care Greenhouse Assistant Name Role Phone Allyssa Robles RN Unavailable Unavailable Encounter Details Date Type Department Care Team (Late st Contact Info) Description 06/23/2024 Lab Requisition [facility] [address] [place] [address] Juan Chavarria MD [address] [facility] Alexia Purcellhobbs, [address] [phone] Encounter for test, result unknown 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 [...] LAB IMMUNOASSAY METHOD 06/23/2024 11:04 AM EST [facility] [...] AM EST 06/23/2024 10:43 AM EST Narrative [facility] - 06/23/2024 11:04 AM EST Total HCG measurement is performed using the Faith [place] Access Immunoassay which detects intact HCG and free beta HCG subunit. This test is not indicated for use as a tumor marker. HCG testing is performed using a different test methodology at [facility] than other [facility]. Direct result comparison should only be made within the same method. us Juan Chavarria MD LAB BLOOD ORDERABLES Final R esult [facility] [address] [place] [phone] documented in this encounter Visit Diagnoses Diagnosis Encounter for test, result unknown documented in this encounter Care Teams Greenhouse Assistant Relationship Specialty Start Date End Date Allyssa Robles, RN Registered Nurse Reproductive Endocrinology and Infertility 12/25/23 documented as of this encounter
--- OUTSIDE RECORDS SUMMARY | 2025-01-27 16:07 | XMS_ITS | Encounter Summary ---
Author Organization [facility] Address [address] [place] [address] Phone Care Team Providers Care Game Farm Supervisor Name Role Phone Allyssa Robles RN Unavailable Unavailable Encounter Details Date Type Department Care Team (Late st Contact Info) Description 06/07/2024 Lab Requisition [facility] [address] [place] [phone] America Chavez, ADVERTISING AGENT-FUEL AGENT [address] [place] [address] Female infertility, unspecified 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 Tobacco Use [...] LAB IMMUNOASSAY METHOD 06/10/2024 8:33 PM EST [facility] Comment: Blood Venous blood specimen / Unknown 06/07/2024 8:45 AM EST 06/07/2024 10:22 AM EST Narrative [facility] - 06/10/2024 8:33 PM EST REF VALUES Male <0.2-0.8 Follicular Phase <0.2-1.5 Luteal Phase 7.4-15.4 Post Menopausal <0.2-0.2 1ST Trimester 12.0-84.0 2ND Trimester 10.2-58.8 3RD Trimester 46.5-160 Progesterone is performed using the Faith [place]along Access Immunoassay. Progesterone testing is performed using a different test methodology at [facility] than other [facility]. Direct result comparison should only be made within the same method. America Chavez APRNSlickLoginFUEL AGENT LAB BLOOD ORDERABLES Edite d Result - Final Performing Organization Address City/State/[facility] Co de Phone Number [facility] [address] [place] [phone] * Estradiol (06/07/2024 8:45 AM EST) Estradiol 2,870 pg/mL LAB IMMUNOASSAY METHOD 06/07/2024 10:43 AM EST [facility] Blood Venous blood specimen / Unknown 06/07/2024 8:45 AM EST 06/07/2024 10:22 AM EST Narrative [facility] - 06/07/2024 10:43 AM EST REF VALUES FOLLICULAR PHASE 20-144 MID CYCLE 64-357 LUTEAL PHASE 56-214 POSTMENOPAUSE < 32 PREPUBERTY < 20 FEMALE 10-18Y 8-110 MALE 10-18Y < 20 ADULT MALE < 40 America Chavez ADVERTISING AGENT-FUEL AGENT LAB BLOOD ORDERABLES Final Result [facility] [address] [place] [address] documented in this encounter Visit Diagnoses Diagnosis Female infertility, unspecified documented in this encounter Care Teams Game Farm Supervisor Relationship Specialty Start Date End Date Allyssa Robles, MISHEL Registered Nurse Reproductive Endocrinology and Infertility 12/25/23 documented as of this encounter
--- OUTSIDE RECORDS SUMMARY | 2025-01-27 16:07 | XMS_ITS | Encounter Summary ---
Author Organization [facility] Address [address] [place] [address] Care Team Providers Care Help Desk Support Name Role Phone Unavailable Primary Care Provider Unavailabl e Encounter Details Date Type Department Care Team (Late st Contact Info) Description 08/02/2024 Abstract [facility] Yanira ZACARIAS [address] [place] [address] Layo Courtney DO [address] [facility] [place] [address] 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 Tobacco Use Types Packs/Day [...] 1:50 PM EDT Routine NOMKenisha ZACARIAS [address] [place] [address] Maria M Guerrero NP [address] [facility] [place] [address] documented as of this encounter Visit Diagnoses Not on filedocumented in this encounter
--- OUTSIDE RECORDS SUMMARY | 2025-01-27 16:07 | XMS_ITS | Encounter Summary ---
Author Organization [facility] Address [address] [place] [address] Care Team Providers Care Domestic Violence Advocate Name Role Phone Unavailable Primary Care Provider Unavailabl e Encounter Details Date Type Department Care Team (Late st Contact Info) Description 11/18/2024 Abstract [facility] Yanira ZACARIAS [address] [place] [address] Layo Courtney DO [address] [place] [address] 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 Tobacco Use [...] 1:50 PM EDT Routine NOMKenisha ZACARIAS [address] [place] [address] Maria M Guerrero NP [address] [place] [address] documented as of this encounter Visit Diagnoses Not on filedocumented in this encounter
[2025-01-27 16:11] VITALS: BP 126/81; PULSE 96
--- OUTSIDE RECORDS SUMMARY | 2025-01-27 16:11 | XMS_ITS | CCD ---
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 Name Role Phone Rachana LYONS Primary Care [...] Allergy 03-16-2023 Unknown (qualifier value), Unknown [facility] Work Phone: (20 sources) Latex; Translations: [Latex] Drug allergy 03-16-2023 Rash [facility] Work Phone: (20 sources) nickel; Translations: [Nickel] Drug Allergy 03-16-2023 Rash, Itching [facility] Work Phone: Medications Current Medications [...] tablet Indications: Pruritus of in second trimester ([facility]) Take 1 tablet (10 mg) by mouth [...] Do not use to face, armpits, groin., [facility]/pharmacy #[id number], 162, cm, 10/02/23 11:23:00 EDT, Height/Length Dosing, 76.7, kg, 10/02/23 11:23:00 EDT, Weight Dosing Start Date: 10/02/23 Status: Ordered Start: 02-10-2022 clobetasol pro pionate 0.05% top oint 1 bonifacio, Topical, BID, 45 gram, Refill(s) 0, Apply a thin film to affected area. Do not use to face, armpits, groin., [facility] 1985, 160, cm, 07/24/21 17:02:00 EDT, Height/Length Dosing, 71.6, kg, 07/24/21 17:02:00 EDT, Weight Dosing Start Date: 02/10/22 Status: Ordered Start: 01-29-2021 clobetasol pro pionate 0.05% top oint 1 bonifacio, Topical, BID, 45 gram, Refill(s) 1, [facility] 1985, 160, cm, 01/29/21 16:48:00 [...] spasm, # 30 tab(s), Refills(s) 1, Pharmacy: [facility]/pharmacy #[id number], 162, cm, 02/19/23 7:51:00 EDT, Height/Length [...] Refill(s) 6, Therapeutic tx; may refill early, [facility] 1986, 160, cm, 09/27/20 16:16:00 [...] Refill(s) 6, Therapeutic tx; may refill early, [facility] 1986, 160, cm, 09/27/20 16:16:00 [...] tablets Indications: Pruritus of in second trimester ([facility]) Day 1: 6 tablets Day 2: 5 tablets Day 3: 4 tablets Day 4: 3 tablets Day 5: 2 tablets Day 6: 1 tablet 21 tablet 10/04/2024 12/06/2024 Discontinued Start: 10-04-2024 methylPREDNISo lone (Medrol Dospak) 4 MG tablets Indications: Pruritus of in second trimester ([facility]) Day 1: 6 tablets Day 2: [...] hour of each main meal containing fat, [facility] 1986, 160, cm, 07/24/21 17:02:00 EDT, Height/Length [...] Take 1 each by mouth Daily Active -wngi-tfp ic-omega3 29-1-400 mg combo pack,tablet and cap,DR (14 sources) dfmujbga86-cikt- f olic-omega3 29-1-400 mg combo pack,tablet and [...] Daily, # 90 tab(s), Refills(s) 3, Pharmacy: [facility]/pharmacy #[id number], 162, cm, 10/02/23 11:23:00 EDT, Height/Length Dosing, 76.7, kg, 10/02/23 11:23:00 EDT, Weight Dosing Start Date: 10/02/23 Status: Ordered Start: 08-27-2023 take 2 tablets by mo uth once daily Topamax 25 mg Tab 50 mg = 2 tab(s), Oral, Daily, # 180 tab(s), Refills(s) 0, Pharmacy: [facility]/pharmacy #[id number], 162, cm, 08/27/23 17:49:00 EDT, Height/Length [...] 4-7, # 90 tab(s), Refills(s) 1, Pharmacy: [facility]/pharmacy #[id number], 162, cm, 02/19/23 7:51:00 EDT, Height/Length [...] Facility US OB BPP W NON-STRESS on 01-25-[address] [address] Ultrasound Report Signed Patient: SYDNEY ROMERO MR#: [id number] : 1995 Acct:[id number] Age/Sex: 29 / F ADM Date: 01/25/25 Loc: US Attending Dr: Layo Courtney D.O. Ordering Physician: Layo Courtney D.O. Date of Service: 01/25/25 Procedure(s): US OB BPP w non-stress Accession Number(s): [id number] cc: Layo Courtney D.O.; Physician,Non-Staff Steven The [place] [address] Patient Name: SYDNEY ROMERO MRN: [facility]:[id number] date: 1995 Sex: F Assigned Patient Location: [facility] Current Patient Location: US Accession/Order Number: [id number] Exam Date: 01/25/2025 16:50 Report Date: 01/25/2025 18:24 At the request of: LAYO COURTNEY DO Procedure: US OB BPP w non-stress Ultrasound biophysical profile INDICATION: Abnormal biophysical profile 01/24/2025 FINDINGS: The heel cover softener reports a BPP of 8 out of 8 LONNY is normal at 10.9 cm. heart rate 134. Heterogeneous appearance of the placenta hypoechoic focus measuring 1.3 x 2.8 x 2.0 cm in size. US/US OB BPP w non-stress IMPRESSION: BPP 8 out of 8. Impression dictated by: Bernabe Romero M.D. 01/25/2025 6:24 PM Dictation Location: [place] [address] Electronically authenticated by: [id number] Y Date: 01/25/2025 18:24 Dictated By: Bernabe Romero M.D. Signed By: 01/25/251826 DD/ 23 TD/TT: City Assessor: [facility] Radiology, Radiologist, MD - 01/25/2025 [place] [address] Ultrasound Report Signed Patient: SYDNEY ROMERO MR#: [id number] : 1995 Acct:[id number] Age/Sex: 29 / F ADM Date: 01/25/25 Loc: US Attending Dr: Layo Courtney D.O. Ordering Physician: Layo Courtney D.O. Date of Service: 01/25/25 Procedure(s): US OB BPP w non-stress Accession Number(s): [id number] cc: Layo Courtney D.O.; Physician,Non-Staff Steven [address] [address] Patient Name: SYDNEY ROMERO MRN: [facility]:[id number] date: 1995 Sex: F Assigned Patient Location: [facility] Current Patient Location: Accession/Order Number: [id number] Exam Date: 01/25/2025 16:50 Report Date: 01/25/2025 18:24 At the request of: LAYO COURTNEY DO Procedure: US OB BPP w non-stress Ultrasound biophysical profile INDICATION: Abnormal biophysical profile 01/24/2025 FINDINGS: The heel cover softener reports a BPP of 8 out of 8 LONNY is normal at 10.9 cm. heart rate 134. Heterogeneous appearance of the placenta hypoechoic focus measuring 1.3 x 2.8 x 2.0 cm in size. US/US OB BPP w non-stress IMPRESSION: BPP 8 out of 8. Impression dictated by: Bernabe Romero M.D. 01/25/2025 6:24 PM Dictation Location: [place] [address] Electronically authenticated by: [id number] Y Date: 01/25/2025 18:24 Dictated By: Bernabe Romero M.D. Signed By: 01/25/251826 DD/ 23 TD/TT: [facility] Rad[facility] Study observation (narrative) [facility] US OB BPP W NON-STRESS Ordered By: Radiologist Radiology on 01-25-2025 [facility] Work Phone: US OB BPP W NON-STRESS on 01-24-[address] [address] Ultrasound Report Signed Patient: SYDNEY ROMERO MR#: [id number] : 1995 Acct:[id number] Age/Sex: 29 / F ADM Date: 01/24/25 Loc: US Attending Dr: Layo Courtney D.O. Ordering Physician: Layo Courtney D.O. Date of Service: 01/24/25 Procedure(s): US OB BPP w non-stress Accession Number(s): [id number] cc: Layo Courtney D.O.; Physician,Non-Staff Steven [address] [address] Patient Name: SYDNEY ROMERO MRN: [facility]:[id number] date: 1995 Sex: F Assigned Patient Location: [facility] Current Patient Location: Accession/Order Number: [id number] Exam Date: 01/24/2025 16:10 Report Date: 01/24/2025 19:55 At the request of: LAYO COURTNEY DO Procedure: US OB BPP w non-stress Biophysical profile. Reason for exam: resulting in vitro fertilization COMPARISON: 01/17/2025 TECHNIQUE: Transabdominal imaging of the gravid uterus was obtained. FINDINGS: The heel cover softener reports a BPP of 6 out of 8 with 0/2 for gross body movements.. LONNY is normal at 11.9 cm. heart rate 148 bpm. US/US OB BPP w non-stress IMPRESSION: BPP 6out of 8. Correlation with NST is suggested. Impression dictated by: Juan Salinas Jr., D.O. 01/24/2025 7:55 PM Dictation Location: [place] [address] Electronically authenticated by: [id number] Y Date: 01/24/2025 19:55 Dictated By: Juan Salinas M.D. Signed By: 01/24/251957 DD/ 54 TD/TT: City Assessor: [facility] Radiology, Radiologist, - 01/24/2025 The [place] [id number] Ultrasound Report Signed Patient: SYDNEY ROMERO MR#: [id number] : 1995 Acct:[id number] Age/Sex: 29 / F ADM Date: 01/24/25 Loc: US Attending Dr: Layo Courtney D.O. Ordering Physician: Layo Courtney D.O. Date of Service: 01/24/25 Procedure(s): US OB BPP w non-stress Accession Number(s): [id number] cc: Layo Courtney D.O.; Physician,Non-Staff Steven [facility] [place] [address] Patient Name: SYDNEY ROMERO MRN: [id number] date: 1995 Sex: F Assigned Patient Location: [facility] Current Patient Location: Accession/Order Number: [id number] Exam Date: 01/24/2025 16:10 Report Date: 01/24/2025 19:55 At the request of: LAYO COURTNEY DO Procedure: US OB BPP w non-stress Biophysical profile. Reason for exam: resulting in vitro fertilization COMPARISON: 01/17/2025 TECHNIQUE: Transabdominal imaging of the gravid uterus was obtained. FINDINGS: The heel cover softener reports a BPP of 6 out of 8 with 0/2 for gross body movements.. LONNY is normal at 11.9 cm. heart rate 148 bpm. US/US OB BPP w non-stress IMPRESSION: BPP 6out of 8. Correlation with NST is suggested. Impression dictated by: Juan Salinas Jr., D.O. 01/24/2025 7:55 PM Dictation Location: [place] [address] Electronically authenticated by: [id number] Y Date: 01/24/2025 19:55 Dictated By: Juan Salinas M.D. Signed By: 01/24/251957 DD/ 54 TD/TT: City Assessor: [facility] Radiology Study observation (narrative) [facility] US OB BPP W NON-STRESS Ordered By: Radiologist Radiology on 01-24-2025 [facility] [employer] Work Phone: US OB BPP W NON-STRESS on 01-18-2025 [place] [address] Ultrasound Report Signed Patient: SYDNEY ROMERO MR#: [id number] : 1995 Acct:[id number] Age/Sex: 29 / F ADM Date: 01/17/25 Loc: US Attending Dr: Layo Courtney D.O. Ordering Physician: Layo Courtney D.O. Date of Service: 01/17/25 Procedure(s): US OB BPP w non-stress Accession Number(s): [id number] cc: Layo Courtney D.O.; Physician,Non-Staff Steven [address] [id number] Patient Name: SYDNEY ROMERO MRN: [facility]:[id number] date: 1995 Sex: F Assigned Patient Location: [facility] Current Patient Location: Accession/Order Number: [id number] Exam Date: 01/17/2025 16:08 Report Date: 01/18/2025 [...] Tol[place] M.D. 01/18/2025 9:02 AM Dictation Location: [place] [address] Electronically authenticated by: [id number] Y Date: 01/18/2025 09:02 Dictated By: Mariela Toledo M.D. Signed By: 01/18/25904 DD/ 1 TD/TT: City Assessor: [facility] Radiology, Radiologist, MD - 01/18/2025 [place] [address] Ultrasound Report Signed Patient: SYDNEY ROMERO MR#: [id number] : 1995 Acct:[id number] Age/Sex: 29 / F ADM Date: 01/17/25 Loc: US Attending Dr: Layo Courtney D.O. Ordering Physician: Layo Courtney D.O. Date of Service: 01/17/25 Procedure(s): US OB BPP w non-stress Accession Number(s): [id number] cc: Layo Courtney D.O.; Physician,Non-Staff Steven The [place] [id number] Patient Name: SYDNEY ROMERO MRN: [facility]:[id number] date: 1995 Sex: F Assigned Patient Location: [facility] Current Patient Location: Accession/Order Number: [id number] Exam Date: 01/17/2025 16:08 Report Date: 01/18/2025 [...] [place] M.D. 01/18/2025 9:02 AM Dictation Location: [employer] Electronically authenticated by: [id number] Y Date: 01/18/2025 09:02 Dictated By: Mariela Toledo M.D. Signed By: 01/18/25904 DD/ 1 TD/TT: City Assessor: [facility] Radiology Study observation (narrative) [facility] US OB BPP W NON-STRESS Ordered By: Radiologist Radiology on 01-18-2025 [facility] Work Phone: Urinalysis macro (dipstick) panel (U)on 01-16-2025 Bilirubin, UA Negative Negative - 4(70) +++ mg/dL [facility] Blood, UA Negative Negative - 50 Jose/mcL [facility] Clarity, UA Clear [facility] Color, UA Yellow [facility] Glucose, UA Negative Negative - 2000(110) ++++ mg/dL [facility] Interpretation and review of laboratory results Abnormal [facility] Ketones, UA Negative Negative - 160(16) ++++ mg/dL [facility] Leukocytes, UA Positive Negative - 500+++ Onel/mcL [facility] Nitrite, UA Negative Negative - Positive [facility] pH, UA 6 5 - 9 [facility] Protein, UA Positive Negative - 2000(20) ++++ mg/dL [facility] Spec Grav, UA 1.03 1 - 1.03 [facility] Urobilinogen, UA 1.0 0.2 - 12 mg/dL [facility] US OB BPP W NON-STRESS on 01-10-2025 [place] [address] Ultrasound Report Signed Patient: SYDNEY ROMERO MR#: [id number] : 1995 Acct:[id number] Age/Sex: 29 / F ADM Date: 01/10/25 Loc: US Attending Dr: Layo Courtney D.O. Ordering Physician: Layo Courtney D.O. Date of Service: 01/10/25 Procedure(s): US OB BPP w non-stress Accession Number(s): [id number] cc: Layo Courtney D.O.; Physician,Non-Staff Steven [facility] [place] [address] Patient Name: SYDNEY ROMERO MRN: [id number] date: 1995 Sex: F Assigned Patient Location: US Current Patient Location: Accession/Order Number: [id number] Exam Date: 01/10/2025 16:03 Report Date: 01/10/2025 [...] Romero M.D. 01/10/2025 9:07 PM Dictation Location: [place] [address] Electronically authenticated by: [id number] Y Date: 01/10/2025 21:07 Dictated By: Bernabe Romero M.D. Signed By: 01/10/252109 DD/ 06 TD/TT: City Assessor: [facility] Radiology, Radiologist, MD - 01/10/2025 [place] [address] Ultrasound Report Signed Patient: SYDNEY ROMERO MR#: [id number] : 1995 Acct:[id number] Age/Sex: 29 / F ADM Date: 01/10/25 Loc: US Attending Dr: Layo Courtney D.O. Ordering Physician: Layo Courtney D.O. Date of Service: 01/10/25 Procedure(s): US OB BPP w non-stress Accession Number(s): [id number] cc: Layo Courtney D.O.; Physician,Non-Staff Steven [facility] [place] [phone] Patient Name: SYDNEY ROMERO MRN: [facility]:[id number] date: 1995 Sex: F Assigned Patient Location: US Current Patient Location: Accession/Order Number: [id number] Exam Date: 01/10/2025 16:03 Report Date: 01/10/2025 [...] Romero M.D. 01/10/2025 9:07 PM Dictation [facility] Electronically authenticated by: [id number] Y Date: 01/10/2025 21:07 Dictated By: Bernabe Romero M.D. Signed By: 01/10/252109 DD/ 06 TD/TT: City Assessor: [facility] Radiology Study observation (narrative) [facility] US OB BPP W NON-STRESS Ordered By: Radiologist Radiology on 01-10-2025 [facility] Work Phone: Urinalysis macro (dipstick) panel (U)on 01-03-2025 Bilirubin, UA Negative Negative - 4(70) +++ mg/dL [facility] Blood, UA Negative Negative - 50 Jose/mcL [facility] Clarity, UA Clear [facility] Color, UA Yellow [facility] Glucose, UA Trace Negative - 2000(110) ++++ mg/dL [facility] Interpretation and review of laboratory results Abnormal [facility] Ketones, UA Negative Negative - 160(16) ++++ mg/dL [facility] Leukocytes, UA Positive Negative - 500+++ Onel/mcL [facility] Nitrite, UA Negative Negative - Positive [facility] pH, UA 8 5 - 9 [facility] Protein, UA Negative Negative - 2000(20) ++++ mg/dL [facility] Spec Grav, UA 1.015 1 - 1.03 [facility] Urobilinogen, UA 1.0 0.2 - 12 mg/dL [facility] US OB FOLLOW UP TRANSABDOMIN AL APPROACHon [...] II, MD, PHD at 22-Dec-2024 08:03:51 AM [facility] Normal Not Available Comment on above: Order Comment: US OB SCAN FOR GROWTH Estimated Date of Delivery: 03/01/25 Gestational Age as of 12/06/2024: 27w6d Urinalysis macro (dipstick) panel (U)on 12-19-2024 Bilirubin, UA Negative Negative - 4(70) +++ mg/dL [facility] Blood, UA Positive Negative - 50 Jose/mcL [facility] Clarity, UA Clear [facility] Color, UA Yellow [facility] Glucose, UA Negative Negative - 2000(110) ++++ mg/dL [facility] Interpretation and review of laboratory results Abnormal [facility] Ketones, UA Negative Negative - 160(16) ++++ mg/dL [facility] Leukocytes, UA Positive Negative - 500+++ Onel/mcL [facility] Comment on above: 3+ Nitrite, UA Negative Negative - Positive [facility] pH, UA 6 5 - 9 [facility] Protein, UA Positive Negative - 2000(20) ++++ mg/dL [facility] Spec Grav, UA 1.03 1 - 1.03 [facility] Urobilinogen, UA 1.0 0.2 - 12 mg/dL [facility] GLUCOSE TOLERANCE 3 HOURon 0 12-06-2024 GLUCOSE TOLERANCE 3 HOUR mg/dL [facility] Comment on above: GLU FAST 90 (<95) Co l: 12/06/24 1126 GLU 1HR 143 (<180) Col: 12/06/24 1235 GLU 2HR 132 (<155) Col: 12/06/24 1327 GLU 3HR 81 (<140) Col: 12/06/24 1432 [facility] Urinalysis macro (dipstick) panel (U)on 12-06-2024 Bilirubin, UA Negative Negative - 4(70) +++ mg/dL [facility] Blood, UA Negative Negative - 50 Jose/mcL [facility] Clarity, UA Clear [facility] Color, UA Yellow [facility] Glucose, UA Negative Negative - 1999(110) ++++ mg/dL [facility] Interpretation and review of laboratory results Abnormal [facility] Ketones, UA Negative Negative - 160(16) ++++ mg/dL [facility] Leukocytes, UA 3+ Negative - 500+++ Onel/mcL [facility] Nitrite, UA Negative Negative - Positive [facility] pH, UA 8 5 - 9 [facility] Protein, UA Negative Negative - 1999(20) ++++ mg/dL [facility] Spec Grav, UA 1.015 1 - 1.03 [facility] Urobilinogen, UA 1.0 0.2 - 12 mg/dL [facility] ALL CBC WITH AUTO DIFFon BASOPHILS ABSOLUTE AUTO 0 N [facility] Basophils/100 WBC (Bld) 0.3 % 0.2 - 2.0 % [facility] Eosinophils/100 WBC (Bld) 1.1 % 0.9 - 7.0 % [facility] Erythrocyte distribution width (RBC) [Ratio] 12.4 % 11.0 - 15.0 % [facility] Hematocrit (Bld) [Volume fraction] 38.9 % 36.0 - 48.0 % [facility] Hemoglobin (Bld) [Mass/Vol] 13.6 g/dL 12.0 - 16.0 g/dL [facility] IMMATURE GRANULOCYTES ABS AUTO 0.13 High [facility] Immature granulocytes/100 WBC (Bld) 1.4 % High 0.0 - 0.5 % [facility] Interpretation and review of laboratory results Abnormal [facility] LYMPHOCYTES ABSOLUTE AUTO 1.7 [facility] Lymphocytes/100 WBC (Bld) 18.9 % Low 20.5 - 60. 0 % [facility] MCH (RBC) [Entitic mass] 31.5 pg 26. 7 - 34.0 pg [facility] MCHC (RBC) [Mass/Vol] 35 g/dL 29.9 - 35.2 g/dL [facility] MCV (RBC) [Entitic vol] 90 fL 81.0 - 99.0 fL [facility] MONOCYTES ABSOLUTE AUTO 0.4 N [facility] Monocytes/100 WBC (Bld) 4.6 % 1.7 - 12.0 % [facility] NEUTROPHILS ABSOLUTE AUTO 6.8 High [facility] Neutrophils/100 WBC (Bld) 73.7 % 43.0 - 75. 0 % [facility] Platelet mean volume (Bld) [Entitic vol] 11.3 fL 9.5 - 13.5 [facility] PLT 142 Low [facility] RBC 4.32 [facility] WBC 9.2 [facility] Urinalysis macro (dipstick) panel (U)on 11-09-2024 Bilirubin, UA Negative Negative - 4(70) +++ mg/dL [facility] Blood, UA Negative Negative - 50 Jose/mcL [facility] Clarity, UA Clear [facility] Color, UA Yellow [facility] Glucose, UA Negative Negative - 1999(110) ++++ mg/dL [facility] Interpretation and review of laboratory results Normal [facility] Ketones, UA Negative Negative - 160(16) ++++ mg/dL [facility] Leukocytes, UA Negative Negative - 500+++ Onel/mcL [facility] Nitrite, UA Negative Negative - Positive [facility] pH, UA 5.5 5 - 9 [facility] Protein, UA Negative Negative - 1999(20) ++++ mg/dL [facility] Spec Grav, UA 1.025 1 - 1.03 [facility] Urobilinogen, UA 1.0 0.2 - 12 mg/dL [facility] Urinalysis macro (dipstick) panel (U)on 10-17-2024 Bilirubin, UA Negative Negative - 4(70) +++ mg/dL [facility] Blood, UA Negative Negative - 50 Jose/mcL [facility] Clarity, UA Clear [facility] Color, UA Yellow [facility] Glucose, UA Negative Negative - 1999(110) ++++ mg/dL [facility] Interpretation and review of laboratory results Abnormal [facility] Ketones, UA Negative Negative - 160(16) ++++ mg/dL [facility] Leukocytes, UA Positive Negative - 500+++ Onel/mcL [facility] Comment on above: small Nitrite, UA Negative Negative - Positive [facility] pH, UA 7 5 - 9 [facility] Protein, UA Negative Negative - 1999(20) ++++ mg/dL [facility] Spec Grav, UA 1.015 1 - 1.03 [facility] Urobilinogen, UA 0.2 0.2 - 12 mg/dL [facility] ALL CBC WITH AUTO DIFFon BASOPHILS ABSOLUTE AUTO 0 N [facility] Basophils/100 WBC (Bld) 0.2 % 0.2 - 2.0 % [facility] Eosinophils/100 WBC (Bld) 3.2 % 0.9 - 7.0 % [facility] Erythrocyte distribution width (RBC) [Ratio] 12.5 % 11.0 - 15.0 % [facility] Hematocrit (Bld) [Volume fraction] 37.9 % 36.0 - 48.0 % [facility] Hemoglobin (Bld) [Mass/Vol] 13.2 g/dL 12.0 - 16.0 g/dL [facility] IMMATURE GRANULOCYTES ABS AUTO 0.14 High [facility] Immature granulocytes/100 WBC (Bld) 1.5 % High 0.0 - 0.5 % [facility] Interpretation and review of laboratory results Abnormal [facility] LYMPHOCYTES ABSOLUTE AUTO 2 [facility] Lymphocytes/100 WBC (Bld) 20.8 % 20.5 - 60. 0 % [facility] MCH (RBC) [Entitic mass] 30.9 pg 26. 7 - 34.0 pg [facility] MCHC (RBC) [Mass/Vol] 34.8 g/dL 29.9 - 35.2 g/dL [facility] MCV (RBC) [Entitic vol] 88.8 fL 81.0 - 99.0 fL [facility] MONOCYTES ABSOLUTE AUTO 0.7 N [facility] Monocytes/100 WBC (Bld) 7.2 % 1.7 - 12.0 % [facility] NEUTROPHILS ABSOLUTE AUTO 6.3 [facility] Neutrophils/100 WBC (Bld) 67.1 % 43.0 - 75. 0 % [facility] Platelet mean volume (Bld) [Entitic vol] 11.1 fL 9.5 - 13.5 fL [facility] TBH EO # 0.3 [facility] TB PLT 153 [facility] RBC 4.27 [facility] TB WBC 9.4 [facility] US OB DETAIL ANATOMYon 10-07-2024 OB DETAIL ANATOMY Interpreted by: Ad Ovalle [...] EFW (oz) 12 oz EFW by: Hadlock (BRH-WH-BO-FL) Extended Road Worker 6.0 mm CM 4.4 mm 36% Nicolaides [...] Normal LVOT view: Normal 3-vessel view: Normal 4-jdbwla-jnwpwvt view: Normal Heart / Thorax Situs: situs [...] Normal L (more content not included)... Normal [facility] US for pregnancyon Interpreted by: Ad Ovalle [...] EFW (oz) 12 oz EFW by: Hadlock (JRP-HT-JM-FL) Extended Road Worker 6.0 mm CM 4.4 mm 36% Nicolaides [...] Normal LVOT view: Normal 3-vessel view: Normal 8-pgpwwe-akipvpa view: Normal Heart / Thorax Situs: situs [...] Assisted Reproductive Technology History ====== General History Evuhhm732 cm Height (ft)5 ft Height (in)3 in Previous Outcomes Gravida1 Para0 Maternal Assessment Ydlrmu737 cm Height (ft)5 ft Height (in)3 in Itxrdm60 kg Weight (lb)165 lb Weight gain0 kg [...] 87% Hadlock Femur32.4 mm20w 1d 73% Hadlock Jxcaaau76.4 mm 45% [place]itty HC / AC1.05 2% Hadlock UGE286 g20w 1d 91% Hadlock EFW (lb)0 lb EFW (oz)12 oz EFW by:Hadlock (POP-QN-FK-FL) Extended Vp6.0 mm CM4.4 mm 36% Nicolaides Nasal bone4.7 mm Head / Face / Neck Cephalic index0.74 10% Nicolaides Nasal bone:present Extremities / Bony Struc FL / BPD0.74 92% Hadlock FL / HC0.20 96% Hadlock FL / AC0.21 35% Hadlock Other Structures WWV843 bpm Anatomy Cranium:Normal Lateral ventricles:Normal Choroid plexus:Normal [...] view:Normal RVOT view:Normal LVOT view:Normal 3-vessel view:Normal 3-gybpbu-xbdktzf view:Normal Heart / Thorax Situs:situs solitus (normal) [...] Lt lower leg:Normal (more content not included)... [facility] Work Phone: Source Facility: [facility] Interpreted by: Ad Ovalle Indication ======== [...] EFW (oz) 12 oz EFW by: Hadlock (MCT-PY-GM-FL) Extended Road Worker 6.0 mm CM 4.4 mm 36% Nicolaides [...] Normal LVOT view: Normal 3-vessel view: Normal 2-xbovge-hpumzzr view: Normal Heart / Thorax Situs: situs [...] - 10/07/2024 Source Facility: [facility] Interpreted by: Ad Ovalle Indication ======== [...] EFW (oz) 12 oz EFW by: Hadlock (CZT-HG-VU-FL) Extended Road Worker 6.0 mm CM 4.4 mm 36% Nicolaides [...] Normal LVOT view: Normal 3-vessel view: Normal 7-nwfkro-jjstaoa view: Normal Heart / Thorax Situs: situs [...] Normal Lt forear (more content not included)... [facility] Radiology Study observation (narrative) [facility] Work Phone: Radiology Study observation (narrative) [facility] US for pregnancyOrdered By: Ad Ovalle on 10-07-2024 [facility] Work Phone: US for pregnancyOrdered By: Radiologist Radiology on 10-07-2024 [facility] Work Phone: RECURRENT VAGINITIS (HTRX)on 09-07-2024 ATOPOBIUM VAGINAE 0 [facility] ATOPOBIUM VAGINAE Not detected [facility] BVAB 2,3 (BACTERIAL VAGINOSIS ASSOCIATED BACTERIA 2, 3); MOBILUNCUS SPP 0 [facility] BVAB 2,3 (BACTERIAL VAGINOSIS ASSOCIATED BACTERIA 2, 3); MOBILUNCUS SPP Not detected [facility] PRESTON ALBICANS, PARAPSILOSIS, TROPICALIS 0 [facility] PRESTON ALBICANS, PARAPSILOSIS, TROPICALIS Not detected [facility] PRESTON GLABRATA 0 [facility] PRESTON GLABRATA Not detected [facility] PRESTON KRUSEI 0 [facility] PRESTON KRUSEI Not detected [facility] CHLAMYDIA TRACHOMATIS 0 [facility] CHLAMYDIA TRACHOMATIS Not detected [facility] GARDNERELLA VAGINALIS 0 [facility] GARDNERELLA VAGINALIS Not detected N [facility] MEGASPHAERA (TYPES 1, 2) 0 [facility] MEGASPHAERA (TYPES 1, 2) Not detected [facility] MYCOPLASMA GENITALIUM 0 [facility] MYCOPLASMA GENITALIUM Not detected N [facility] NEISSERIA GONORRHOEAE 0 [facility] NEISSERIA GONORRHOEAE Not detected N [facility] TRICHOMONAS VAGINALIS 0 [facility] TRICHOMONAS VAGINALIS Not detected N [facility] Urinalysis macro (dipstick) panel (U)on 09-06-2024 Bilirubin, UA Negative Negative - 4(70) +++ mg/dL [facility] Blood, UA Negative Negative - 50 Jose/mcL [facility] Clarity, UA Clear [facility] Color, UA Yellow [facility] Glucose, UA Negative Negative - 2000(110) ++++ mg/dL [facility] Interpretation and review of laboratory results Abnormal [facility] Ketones, UA Negative Negative - 160(16) ++++ mg/dL [facility] Leukocytes, UA Positive Negative - 500+++ Onel/mcL [facility] Comment on above: small Nitrite, UA Negative Negative - Positive [facility] pH, UA 6 5 - 9 [facility] Protein, UA Negative Negative - 2000(20) ++++ mg/dL [facility] Spec Grav, UA 1.03 1 - 1.03 [facility] Urobilinogen, UA 0.2 0.2 - 12 mg/dL [facility] ALL CBC WITH AUTO DIFFon BASOPHILS ABSOLUTE AUTO 0 N [facility] Basophils/100 WBC (Bld) 0.2 % 0.2 - 2.0 % [facility] Eosinophils/100 WBC (Bld) 2.9 % 0.9 - 7.0 % [facility] Erythrocyte distribution width (RBC) [Ratio] 12 % 11.0 - 15.0 % [facility] Hematocrit (Bld) [Volume fraction] 39.3 % 36.0 - 48.0 % [facility] Hemoglobin (Bld) [Mass/Vol] 13.6 g/dL 12.0 - 16.0 g/dL [facility] IMMATURE GRANULOCYTES ABS AUTO 0.06 High [facility] Immature granulocytes/100 WBC (Bld) 0.7 % High 0.0 - 0.5 % [facility] Interpretation and review of laboratory results Abnormal [facility] LYMPHOCYTES ABSOLUTE AUTO 2.1 [facility] Lymphocytes/100 WBC (Bld) 25.4 % 20.5 - 60. 0 % [facility] MCH (RBC) [Entitic mass] 30.2 pg 26. 7 - 34.0 pg [facility] MCHC (RBC) [Mass/Vol] 34.6 g/dL 29.9 - 35.2 g/dL [facility] MCV (RBC) [Entitic vol] 87.3 fL 81.0 - 99.0 fL [facility] MONOCYTES ABSOLUTE AUTO 0.5 N [facility] Monocytes/100 WBC (Bld) 5.8 % 1.7 - 12.0 % [facility] NEUTROPHILS ABSOLUTE AUTO 5.5 [facility] Neutrophils/100 WBC (Bld) 65 % 43.0 - 75. 0 % [facility] Platelet mean volume (Bld) [Entitic vol] 10.9 fL 9.5 - 13.5 fL [facility] EO # 0.2 [facility] PLT 151 [facility] RBC 4.5 [facility] WBC 8.4 [facility] Urinalysis macro (dipstick) panel (U)on 08-08-2024 Bilirubin, UA Negative Negative - 4(70) +++ mg/dL [facility] Blood, UA Negative Negative - 50 Jose/mcL [facility] Clarity, UA Clear [facility] Color, UA Yellow [facility] Glucose, UA Negative Negative - 1999(110) ++++ mg/dL [facility] Interpretation and review of laboratory results Abnormal [facility] Ketones, UA Negative Negative - 160(16) ++++ mg/dL [facility] Leukocytes, UA Positive Negative - 500+++ Onel/mcL [facility] Comment on above: small Nitrite, UA Negative Negative - Positive [facility] pH, UA 6 5 - 9 [facility] Protein, UA Negative Negative - 1999(20) ++++ mg/dL [facility] Spec Grav, UA 1.025 1 - 1.03 [facility] Urobilinogen, UA 0.2 0.2 - 12 mg/dL [facility] HCG ( test) Ql (U)o n 07-29-2024 Interpretation and review of laboratory results Abnormal [facility] Preg Test, Ur Positive Negative [facility] Urinalysis macro (dipstick) panel (U)on 07-29-2024 Bilirubin, UA Negative Negative - 4(70) +++ mg/dL [facility] Blood, UA Positive Negative - 50 Jose/mcL [facility] Comment on above: trace Clarity, UA Clear [facility] Color, UA Yellow [facility] Glucose, UA Negative Negative - 1999(110) ++++ mg/dL [facility] Interpretation and review of laboratory results Abnormal [facility] Ketones, UA Negative Negative - 160(16) ++++ mg/dL [facility] Leukocytes, UA Positive Negative - 500+++ Onel/mcL [facility] Comment on above: small Nitrite, UA Negative Negative - Positive [facility] pH, UA 5.5 5 - 9 [facility] Protein, UA Negative Negative - 1999(20) ++++ mg/dL [facility] Spec Grav, UA 1.03 1 - 1.03 [facility] Urobilinogen, UA 0.2 0.2 - 12 mg/dL [facility] PROGESTERONEon 07-12-2024 PROGESTERONE 53.5 ng/mL Normal [facility] Comment on above: Result Comment: Refe rence Ranges Female Follicular Phase < 1.0 Luteal Phase 2.6-21.5 Post menopausal < 0.5 1st Trimester 4.1-34.0 2nd Trimester 24.0-76.0 3rd Trimester 52.0-302.0 Performed By: #### 7 45 #### [facility] [address] [facility], [address] [place] [address] Business Development Analyst: Alexey Boogie MD US OB TRANSVAGINALon 025 [...] transvaginal evaluation for early dating. View: Sufficient [facility] Choriogonadotropin.beta subu niton 06-30-2024 HCG.beta subunit Qn 6575 m[IU]/mL High <5 [facility] Comment on above: Order Comment: Total HCG measurement is performed using the [employer] Access Immunoassay which detects intact HCG and free beta HCG subunit. This test is not indicated for use as a tumor marker. HCG testing is performed using a different test methodology at [facility] than [facility]. Direct result comparison should only be [...] By: #### 2 1198-7 #### JOSEPH ESQUIVEL ([id number]) [facility] ([facility]) [address] [place] [address] Choriogonadotropin.beta subu niton 06-23-2024 HCG.beta subunit Qn 330 m[IU]/mL High <5 [facility] Comment on above: Order Comment: Total HCG measurement is performed using the [employer] Access Immunoassay which detects intact HCG and free beta HCG subunit. This test is not indicated for use as a tumor marker. HCG testing is performed using a different test methodology at [facility] than [facility]. Direct result comparison should only be [...] By: #### 2 1198-7 #### JOSEPH ESQUIVEL ([id number]) [facility] ([facility]) [address] [place] [address] Estradiolon 06-23-2024 E2 [Mass/Vol] 378 pg/mL Normal [facility] Comment on above: Order Comment: REF V ALUES FOLLICULAR PHASE 20-144 MID CYCLE 64-357 LUTEAL PHASE 56-214 POSTMENOPAUSE < 32 PREPUBERTY < 20 FEMALE 10-18Y 8-110 MALE 10-18Y < 20 ADULT MALE < 40 Estradiol measurement is performed using the [employer] Access Estradiol Immunoassay. Estradiol testing is performed using a different test methodology at [facility] than other [facility]. Direct result comparison should only be made within the same method. Performed By: #### 2 243-4 #### JOSEPH ESQUIVEL ([id number]) [facility] ([facility]) [address] [place] [address] Progesteroneon 06-23-2024 Progesterone [Mass/Vol] 42.6 ng/mL Normal [facility] Comment on above: Order Comment: REF V ALUES Male <0.2-0.8 Follicular Phase <0.2-1.5 Luteal Phase 7.4-15.4 Post Menopausal <0.2-0.2 1ST Trimester 12.0-84.0 2ND Trimester 10.2-58.8 3RD Trimester 46.5-160 Progesterone is performed using the [employer] Access Immunoassay. Progesterone testing is performed using a different test methodology at [facility] than other [facility]. Direct result comparison should only be made within the same method. Performed By: #### 2 839-9 #### JOSEPH ESQUIVEL ([id number]) [facility] ([facility]) [id number] [place] [address] No Panel Informationon 06-13 Juan Chavarria MD [...] Preop diagnosis: Infertility Post op diagnosis: Same Swing Tender: none Depth: 7 cm Curve: anterior Distance [...] Juan Chavarria 06/13/24 11:24 AM [facility] Work Phone: Progesteroneon 06-13-2024 Progesterone [Mass/Vol] 45.0 ng/mL Normal U [facility] Comment on above: Order Comment: REF V ALUES Male <0.2-0.8 Follicular Phase <0.2-1.5 Luteal Phase 7.4-15.4 Post Menopausal <0.2-0.2 1ST Trimester 12.0-84.0 2ND Trimester 10.2-58.8 3RD Trimester 46.5-160 Progesterone is performed using the [employer] [place] Access Immunoassay. Progesterone testing is performed using a different test methodology at [facility] than other [facility]. Direct result comparison should only be made within the same method. Performed By: #### 2 839-9 #### ORA MARQUES ([id number]) [facility] ([facility]) [address] [place] [address] Estradiolon 06-07-2024 E2 [Mass/Vol] 2870 pg/mL Normal [facility] Comment on above: Order Comment: REF V ALUES FOLLICULAR PHASE 20-144 MID CYCLE 64-357 LUTEAL PHASE 56-214 POSTMENOPAUSE < 32 PREPUBERTY < 20 FEMALE 10-18Y 8-110 MALE 10-18Y < 20 ADULT MALE < 40 Performed By: #### 2 243-4 #### JOSEPH ESQUIVEL ([id number]) [facility] ([facility]) [address] [place] [address] Progesteroneon 06-07-2024 Progesterone [Mass/Vol] 0.4 ng/mL Normal [facility] Comment on above: Order Comment: REF V ALUES Male <0.2-0.8 Follicular Phase <0.2-1.5 Luteal Phase 7.4-15.4 Post Menopausal <0.2-0.2 1ST Trimester 12.0-84.0 2ND Trimester 10.2-58.8 3RD Trimester 46.5-160 Progesterone is performed using the [employer] Access Immunoassay. Progesterone testing is performed using a different test methodology at [facility] than other [facility]. Direct result comparison should only be made within the same method. Result Comment: Ref Values Male <0.3- 1.2 Follicular Phase <0.3- 1.4 Luteal Phase 3.3-25.6 Mid-Luteal Phase 4.4-28.0 Postmenopausal <0.3- 0.7 Females: 1st Trimester 11.2- 90.0 2nd Trimester 25.6- 89.4 3RD Trimester 48.4-422.5 Patients receiving DHEA-S supplements may show false elevation of progesterone for results near 1.0 ng/mL. Contact laboratory at [phone] if alternative testing is needed. Performed By: #### 2 839-9 #### JOSEPH ESQUIVEL ([id number]) [facility] ([facility]) [address] [place] [address] [facility] US PELVIS LIMITED FOLLIC LES-FOLLICLE STUDIES PERFORMEDon 06-07-2024 [facility] US PELVIS LIMITED FOLLICLES-FOLLICLE STUDIES PERFORMED Follicle scan performed with follicle measurements in report. and Trilaminar appearance to the endometrium is noted. Normal [facility] Estradiolon 06-06-2024 E2 [Mass/Vol] 558 pg/mL Normal [facility] Comment on above: Order Comment: REF V ALUES FOLLICULAR PHASE 20-144 MID CYCLE 64-357 LUTEAL PHASE 56-214 POSTMENOPAUSE < 32 PREPUBERTY < 20 FEMALE 10-18Y 8-110 MALE 10-18Y < 20 ADULT MALE < 40 Performed By: #### 2 243-4 #### JOSEPH ESQUIVEL ([id number]) [facility] ([facility]) [address] [place] [id number] Follicle Diameter USon 06-06 Trilaminar appearance to the endometrium is noted. RIS SECTRA ONLY [facility] Work Phone: Radiology Study observation (narrative) [facility] Work Phone: Progesteroneon 06-06-2024 Progesterone [Mass/Vol] 0.8 ng/mL Normal [facility] Comment on above: Order Comment: REF V ALUES Male <0.2-0.8 Follicular Phase <0.2-1.5 Luteal Phase 7.4-15.4 Post Menopausal <0.2-0.2 1ST Trimester 12.0-84.0 2ND Trimester 10.2-58.8 3RD Trimester 46.5-160 Progesterone is performed using the [employer] [place] Access Immunoassay. Progesterone testing is performed using a different test methodology at [facility] than other [facility]. Direct result comparison should only be made within the same method. Result Comment: Ref Values Male <0.3- 1.2 Follicular Phase <0.3- 1.4 Luteal Phase 3.3-25.6 Mid-Luteal Phase 4.4-28.0 Postmenopausal <0.3- 0.7 Females: 1st Trimester 11.2- 90.0 2nd Trimester 25.6- 89.4 3RD Trimester 48.4-422.5 Patients receiving DHEA-S supplements may show false elevation of progesterone for results near 1.0 ng/mL. Contact laboratory at [phone] if alternative testing is needed. Performed By: #### 2 839-9 #### JOSEPH ESQUIVEL ([id number]) [facility] ([facility]) [address] [place] [address] [facility] US ENDOMETRIAL LINING CH ECKon 06-06-2024 [facility] US ENDOMETRIAL LINING CHECK Trilaminar appearance to the endometrium is noted. [facility] No Panel Informationon 03-22 Juan Chavarria MD 03/22/2024 9:44 AM Egg Retrieval Date/Time: 03/22/2024 9:39 AM Performed by: Juan Chavarria MD Authorized by: Donya Abernathy, PERSONNEL ASSISTANT-LENS GRINDER Consent: Consent obtained: Verbal and written Consent [...] diagnosis: Female infertility Post op diagnosis: Same Swing Tender: Dr. Warren IV Fluids: 600 cc EBL: 5 cc UOP: Not recorded Specimen: Oocytes Complications: None Number of Oocytes right ovary: 16 Ovarian access (right): Easy Number of Oocytes left ovary: 9 Ovarian access (left): Easy Endometrial thickness: n/a Needle type: Single Additional notes: [facility] Work Phone: Lutropinon 03-21-2024 Lutropin Qn 29.3 IU/L [facility] Comment on above: Result Comment: LH R eference Values Follicular Phase 1.5-10.0 Mid-Cycle 13.0-72.0 Luteal Phase 0.5-13.0 Menopause 15.0-65.0 Pre-puberty 0- 3.0 Children 0- 6.0 Adult Male 1.0- 9.0 Luteinizing Hormone is performed using the [employer] Access Immunoassay. LH testing is performed using a different test methodology at [facility] than other [facility]. Direct result comparison should only be made within the same method. Performed By: #### 4 7236-5 #### SHAI Pickard ([id number]) [facility] ([facility]) [address] [place] [address] Progesteroneon 03-21-2024 Progesterone [Mass/Vol] 4.5 ng/mL Normal [facility] Comment on above: Order [...] By: #### 5 6888-1 #### SHAI Pickard ([id number]) [facility] ([facility]) [address] [place] [address] E2 [Mass/Vol]Ordered By: Shira Rich on 03-20-2024 REF VALUES FOLLICULAR PHASE 20-144 MID CYCLE 64-357 LUTEAL PHASE 56-214 POSTMENOPAUSE < 32 PREPUBERTY < 20 FEMALE 10-18Y 8-110 MALE 10-18Y < 20 ADULT MALE < 40 Estradiol measurement is performed using the [employer] Access Estradiol Immunoassay. Estradiol testing is performed using a different test methodology at [facility] than other [facility]. Direct result comparison should only be made within the same method. [facility] EstradiolOrdered By: Bela Rich on 03-20-2024 E2 [Mass/Vol] 4909 pg/mL [facility] Estradiolon 03-20-2024 E2 [Mass/Vol] 4909 pg/mL Normal [facility] Comment on above: Order Comment: HIV A [...] Performed By: #### 5 6888-1 #### SHAI Pikcard ([id number]) [facility] ([facility]) [address] [place] [address] Follicle Diameter USon 03-20 Follicle scan performed with follicle measurements in report. RIS SECTRA ONLY [facility] Work Phone: Radiology Study observation (narrative) [facility] Work Phone: Progesteroneon 03-20-2024 Progesterone [Mass/Vol] 1.3 ng/mL U [facility] Progesterone [Mass/Vol] 1.3 ng/mL Normal U [facility] Comment on above: Order Comment: [...] By: #### 5 6888-1 #### SHAI Pickard ([id number]) [facility] ([facility]) [address] [place] [address] Progesterone [Mass/Vol]on REF VALUES Male <0.2-0.8 Follicular Phase <0.2-1.5 Luteal Phase 7.4-15.4 Post Menopausal <0.2-0.2 1ST Trimester 12.0-84.0 2ND Trimester 10.2-58.8 3RD Trimester 46.5-160 Progesterone is performed using the [employer] Access Immunoassay. Progesterone testing is performed using a different test methodology at [facility] than other [facility]. Direct result comparison should only be made within the same method. [facility] PELVIS LIMITED FOLLIC LES-FOLLICLE STUDIES PERFORMEDon 03-20-2024 [facility] US PELVIS LIMITED FOLLICLES-FOLLICLE STUDIES PERFORMED Follicle scan performed with follicle measurements in report. Normal [facility] Estradiolon 03-19-2024 E2 [Mass/Vol] 3760 pg/mL Normal [facility] Comment on above: Order Comment: HIV A [...] By: #### 5 6888-1 #### SHAI Pickard ([id number]) [facility] ([facility]) [address] [place], [place] [phone] Follicle Diameter USon 03-19 Follicle scan performed with follicle measurements in report. RIS SECTRA ONLY [facility] Work Phone: Radiology Study observation (narrative) [facility] Work Phone: Progesteroneon 03-19-2024 Progesterone [Mass/Vol] 1.1 ng/mL Normal [facility] Comment on above: Order Comment: HIV A g/Ab screen is performed using the Siemens [employer] HIV Ag/Ab Combo assay which detects the presence of HIV p24 antigen as well as antibodies to HIV-1 (Group M and O) and HIV-2. No laboratory evidence of HIV infection. If acute HIV infection is suspected, consider testing for HIV RNA by PCR (viral load). Performed By: #### 5 6888-1 #### SHAI Pickard ([id number]) [facility] ([facility]) [address] [place], [place] [phone] [facility] PELVIS LIMITED FOLLIC LES-FOLLICLE STUDIES PERFORMEDon 03-19-2024 [facility] US PELVIS LIMITED FOLLICLES-FOLLICLE STUDIES PERFORMED Follicle scan performed with follicle measurements in report. Normal [facility] E2 [Mass/Vol]on 03-17-2024 REF VALUES FOLLICULAR PHASE 20-144 MID CYCLE 64-357 LUTEAL PHASE 56-214 POSTMENOPAUSE < 32 PREPUBERTY < 20 FEMALE 10-18Y 8-110 MALE 10-18Y < 20 ADULT MALE < 40 Estradiol measurement is performed using the [employer] Access Estradiol Immunoassay. Estradiol testing is performed using a different test methodology at [facility] than other [facility]. Direct result comparison should only be made within the same method. [facility] Estradiolon 03-17-2024 E2 [Mass/Vol] 1462 pg/mL [facility] E2 [Mass/Vol] 1462 pg/mL Normal [facility] Comment on above: Order Comment: HIV A [...] By: #### 5 6888-1 #### SHAI Pickard ([id number]) [facility] ([facility]) [address] [place], [place] [phone] Follicle Diameter USon 03-17 Follicle scan performed with follicle measurements in report. Trilaminar appearance to the endometrium is noted. Physiologic free fluid is noted in the cul de sac. Notably retroverted uterus. Two small complex ovarian cysts noted, one on the left and one on the right. RIS SECTRA ONLY Radiology Study observation (narrative) [facility] Work Phone: Follicle Diameter USOrdered By: Leigh Ann Tuttle on 03-17-2024 [facility] Work Phone: Progesteroneon 03-17-2024 Progesterone [Mass/Vol] 0.6 ng/mL Normal U [facility] Comment on above: Order Comment: [...] By: #### 5 6888-1 #### SHAI Pickard ([id number]) [facility] ([facility]) [address] [place] [address] [facility] PELVIS LIMITED FOLLIC LES-FOLLICLE STUDIES PERFORMEDon 03-17-2024 [facility] US PELVIS LIMITED FOLLICLES-FOLLICLE STUDIES PERFORMED Follicle scan performed with follicle measurements in report. Trilaminar appearance to the endometrium is noted. Physiologic free fluid is noted in the cul de sac. Notably retroverted uterus. Two small complex ovarian cysts noted, one on the left and one on the right. Normal [facility] E2 [Mass/Vol]on 03-15-2024 REF VALUES FOLLICULAR PHASE 20-144 MID CYCLE 64-357 LUTEAL PHASE 56-214 POSTMENOPAUSE < 32 PREPUBERTY < 20 FEMALE 10-18Y 8-110 MALE 10-18Y < 20 ADULT MALE < 40 Estradiol measurement is performed using the [employer] Access Estradiol Immunoassay. Estradiol testing is performed using a different test methodology at [facility] than other [facility]. Direct result comparison should only be made within the same method. [facility] Estradiolon 03-15-2024 E2 [Mass/Vol] 721 pg/mL [facility] E2 [Mass/Vol] 721 pg/mL Normal [facility] Comment on above: Order Comment: REF V ALUESFOLLICULAR PHASE 20-144MID CYCLE 64-357LUTEAL PHASE 56-214POSTMENOPAUSE < 32PREPUBERTY < 20FEMALE 10-18Y 8-110MALE 10-18Y < 20ADULT MALE < 40Estradiol measurement is performed using the [employer] Access Estradiol Immunoassay. Estradiol testing is performed using a different test methodology at [facility] than other [facility]. Direct resultcomparison should only be made within the same method. Performed By: #### 1 6128-1 #### SHAI Pickard ([id number]) [facility] ([facility]) [address] [place] [address] Follicle Diameter USon 03-15 Follicle scan performed with follicle measurements in report., Trilaminar appearance to the endometrium is noted., and Free fluid is noted in the cul de sac. RIS SECTRA ONLY [facility] Work Phone: Radiology Study observation (narrative) [facility] Work Phone: [facility] PELVIS LIMITED FOLLIC LES-FOLLICLE STUDIES PERFORMEDon 03-15-2024 [facility] PELVIS LIMITED FOLLICLES-FOLLICLE STUDIES PERFORMED Follicle scan performed with follicle measurements in report., Trilaminar appearance to the endometrium is noted., and Free fluid is noted in the cul de sac. Normal [facility] E2 [Mass/Vol]on 03-09-2024 REF VALUES FOLLICULAR PHASE 20-144 MID CYCLE 64-357 LUTEAL PHASE 56-214 POSTMENOPAUSE < 32 PREPUBERTY < 20 FEMALE 10-18Y 8-110 MALE 10-18Y < 20 ADULT MALE < 40 Estradiol measurement is performed using the [employer] [place] Access Estradiol Immunoassay. Estradiol testing is performed using a different test methodology at [facility] than other [facility]. Direct result comparison should only be made within the same method. [facility] Estradiolon 03-09-2024 E2 [Mass/Vol] pg/mL pg/mL [facility] E2 [Mass/Vol] pg/mL Normal [facility] Comment on above: Order Comment: REF V ALUESFOLLICULAR PHASE 20-144MID CYCLE 64-357LUTEAL PHASE 56-214POSTMENOPAUSE < 32PREPUBERTY < 20FEMALE 10-18Y 8-110MALE 10-18Y < 20ADULT MALE < 40Estradiol measurement is performed using the [employer] Access Estradiol Immunoassay. Estradiol testing is performed using a different test methodology at [facility] than other [facility]. Direct resultcomparison should only be made within the same method. Performed By: #### 1 6128-1 #### SHAI Pickard ([id number]) [facility] ([facility]) [address] [place] [address] Follicle Diameter USon 03-09 Follicle scan performed with follicle measurements in report., Trilaminar appearance to the endometrium is noted., and Free fluid is noted in the cul de sac. RIS SECTRA ONLY Radiology Study observation (narrative) [facility] Work Phone: Follicle Diameter USOrdered By: Alicia Morgan on 03-09-2024 [facility] Work Phone: Hematocrit Auto (Bld) [Volum e fraction]on 03-09-2024 Hematocrit (Bld) [Volume fraction] 43.2 % 36.0 - 46.0 % [facility] Interpretation and review of laboratory results Normal [facility] Hematocrit (Bld) [Volume fraction] 43.2 % Normal 36.0-46.0 [facility] Comment on above: Performed By: #### 1 6128-1 #### SHAI Pickard ([id number]) [facility] ([facility]) [address] [place] [address] [facility] US PELVIS LIMITED FOLLIC LES-FOLLICLE STUDIES PERFORMEDon 03-09-2024 [facility] US PELVIS LIMITED FOLLICLES-FOLLICLE STUDIES PERFORMED Follicle scan performed with follicle measurements in report., Trilaminar appearance to the endometrium is noted., and Free fluid is noted in the cul de sac. [facility] No Panel Informationon 02-22 Juan Chavarria [...] diagnosis: Female infertility Post op diagnosis: Same Swing Tender: none IV Fluids: 500 cc EBL: 5 cc UOP: Not recorded Specimen: Oocytes Complications: None Number of Oocytes right ovary: 17 Ovarian acc ss (right): Easy Number of Oocytes left ovary: 13 Ovarian access (left): Easy Endometrial thickness: n/a Needle type: Single Additional notes: [facility] Work Phone: Lutropinon 02-22-2024 Lutropin Qn 35.3 IU/L [facility] Comment on above: Result Comment: LH R eference Values Follicular Phase 1.5-10.0 Mid-Cycle 13.0-72.0 Luteal Phase 0.5-13.0 Menopause 15.0-65.0 Pre-puberty 0- 3.0 Children 0- 6.0 Adult Male 1.0- 9.0 Luteinizing Hormone is performed using the [employer] Access Immunoassay. LH testing is performed using a different test methodology at [facility] than other [facility]. Direct result comparison should only be made within the same method. Performed By: #### 1 6128-1 #### SHAI Pickard ([id number]) [facility] ([facility]) [address] [place] [address] Progesteroneon 02-22-2024 Progesterone [Mass/Vol] 5.0 ng/mL Normal [facility] Comment on above: Order Comment: REF V ALUESMale <0.2-0.8Follicular Phase <0.2-1.5Luteal Phase 7.4-15.4Post Menopausal <0.2-0.21ST Trimester 12.0-84.02ND Trimester 10.2-58.83RD Trimester 46.5-160Progesterone is performed using the [employer] Access Immunoassay.Progesterone testing is performed using a different test methodology at [facility] than [facility]. Direct result comparison should only be made within the same method. Performed By: #### 1 6128-1 #### SHAI Pickard ([id number]) [facility] ([facility]) [address] [place] [address] 68732 E2 [Mass/Vol]Ordered By: Christi Infante on 02-21-2024 REF VALUES FOLLICULAR PHASE 20-144 MID CYCLE 64-357 LUTEAL PHASE 56-214 POSTMENOPAUSE < 32 PREPUBERTY < 20 FEMALE 10-18Y 8-110 MALE 10-18Y < 20 ADULT MALE < 40 Estradiol measurement is performed using the [employer] Access Estradiol Immunoassay. Estradiol testing is performed using a different test methodology at [facility] than [facility]. Direct result comparison should only be made within the same method. [facility] EstradiolOrdered By: Janet Ritchie on 02-21-2024 E2 [Mass/Vol] 5153 pg/mL [facility] Estradiolon 02-21-2024 E2 [Mass/Vol] 5153 pg/mL Normal [facility] Comment on above: Order Comment: REF V ALUESFOLLICULAR PHASE 20-144MID CYCLE 64-357LUTEAL PHASE 56-214POSTMENOPAUSE < 32PREPUBERTY < 20FEMALE 10-18Y 8-110MALE 10-18Y < 20ADULT MALE < 40Estradiol measurement is performed using the [employer] Access Estradiol Immunoassay. Estradiol testing is performed using a different test methodology at [facility] than [facility]. Direct resultcomparison should only be made within the same method. Performed By: #### 1 6128-1 #### SHAI Pickard ([id number]) [facility] ([facility]) [address] [place] [address] Follicle Diameter USon 02-20 Follicle scan performed with follicle measurements in report. RIS SECTRA ONLY Radiology Study observation (narrative) [facility] Work Phone: Follicle Diameter USOrdered By: Juan Chavarria on 02-21-2024 [facility] Work Phone: Luteinizing Hormone (LH)on Lutropin Qn 0.9 m[IU]/mL IU/L [facility] Comment on above: LH Reference Values Follicular Phase 1.5-10.0 Mid-Cycle 13.0-72.0 Luteal Phase 0.5-13.0 Menopause 15.0-65.0 Pre-puberty 0- 3.0 Children 0- 6.0 Adult Male 1.0- 9.0 Luteinizing Hormone is performed using the [employer] Access Immunoassay. LH testing is performed using a different test methodology at [facility] than [facility]. Direct result comparison should only be made within the same method. Lutropinon 02-21-2024 Lutropin Qn 0.9 IU/L Normal [facility] Comment on above: Result Comment: LH R eference Values Follicular Phase 1.5-10.0 Mid-Cycle 13.0-72.0 Luteal Phase 0.5-13.0 Menopause 15.0-65.0 Pre-puberty 0- 3.0 Children 0- 6.0 Adult Male 1.0- 9.0 Luteinizing Hormone is performed using the [employer] Access Immunoassay. LH testing is performed using a different test methodology at [facility] than [facility]. Direct result comparison should only be made within the same method. Performed By: #### 1 6128-1 #### SHAI Pickard ([id number]) [facility] ([facility]) [address] [place] [address]3420 Lutropin Qnon 02-21-2024 [facility] Progesteroneon 02-21-2024 Progesterone [Mass/Vol] 1.3 ng/mL U [facility] Progesterone [Mass/Vol] 1.3 ng/mL Normal U [facility] Comment on above: Order Comment: REF V ALUESMale <0.2-0.8Follicular Phase <0.2-1.5Luteal Phase 7.4-15.4Post Menopausal <0.2-0.21ST Trimester 12.0-84.02ND Trimester 10.2-58.83RD Trimester 46.5-160Progesterone is performed using the [employer] Access Immunoassay.Progesterone testing is performed using a different test methodology at [facility] than [facility]. Direct result comparison should only be made within the same method. Performed By: #### 5 196-1 #### SHAI Pickard ([id number]) [facility] ([facility]) [address] [place] [address] 96269 Progesterone [Mass/Vol]on REF VALUES Male <0.2-0.8 Follicular Phase <0.2-1.5 Luteal Phase 7.4-15.4 Post Menopausal <0.2-0.2 1ST Trimester 12.0-84.0 2ND Trimester 10.2-58.8 3RD Trimester 46.5-160 Progesterone is performed using the [employer] Access Immunoassay. Progesterone testing is performed using a different test methodology at [facility] than [facility]. Direct result comparison should only be made within the same method. [facility] PELVIS LIMITED FOLLIC LES-FOLLICLE STUDIES PERFORMEDon 02-21-2024 [facility] US PELVIS LIMITED FOLLICLES-FOLLICLE STUDIES PERFORMED Follicle scan performed with follicle measurements in report. Normal [facility] Estradiolon 02-20-2024 E2 [Mass/Vol] 3718 pg/mL Normal [facility] Comment on above: Order Comment: REF V ALUESFOLLICULAR PHASE 20-144MID CYCLE 64-357LUTEAL PHASE 56-214POSTMENOPAUSE < 32PREPUBERTY < 20FEMALE 10-18Y 8-110MALE 10-18Y < 20ADULT MALE < 40Estradiol measurement is performed using the [employer] [place] Access Estradiol Immunoassay. Estradiol testing is performed using a different test methodology at [facility] than [facility]. Direct resultcomparison should only be made within the same method. Performed By: #### 5 196-1 #### SHAI Pickard ([id number]) [facility] ([facility]) [address] [place] [address] 88542 Progesteroneon 02-20-2024 Progesterone [Mass/Vol] 1.4 ng/mL Normal [facility] Comment on above: Order Comment: REF V ALUESMale <0.2-0.8Follicular Phase <0.2-1.5Luteal Phase 7.4-15.4Post Menopausal <0.2-0.21ST Trimester 12.0-84.02ND Trimester 10.2-58.83RD Trimester 46.5-160Progesterone is performed using the [employer] Access Immunoassay.Progesterone testing is performed using a different test methodology at [facility] than [facility]. Direct result comparison should only be made within the same method. Performed By: #### 5 196-1 #### SHAI Pickard ([id number]) [facility] ([facility]) [address] [place] [address] 747[address] [facility] PELVIS LIMITED FOLLIC LES-FOLLICLE STUDIES PERFORMEDon 02-20-2024 [facility] PELVIS LIMITED FOLLICLES-FOLLICLE STUDIES PERFORMED Follicle scan performed with follicle measurements in report. Normal [facility] E2 [Mass/Vol]on 02-18-2024 REF VALUES FOLLICULAR PHASE 20-144 MID CYCLE 64-357 LUTEAL PHASE 56-214 POSTMENOPAUSE < 32 PREPUBERTY < 20 FEMALE 10-18Y 8-110 MALE 10-18Y < 20 ADULT MALE < 40 Estradiol measurement is performed using the [employer] Access Estradiol Immunoassay. Estradiol testing is performed using a different test methodology at [facility] than [facility]. Direct result comparison should only be made within the same method. [facility] Estradiolon 02-18-2024 E2 [Mass/Vol] 1472 pg/mL [facility] E2 [Mass/Vol] 1472 pg/mL Normal [facility] Comment on above: Order Comment: REF V ALUESFOLLICULAR PHASE 20-144MID CYCLE 64-357LUTEAL PHASE 56-214POSTMENOPAUSE < 32PREPUBERTY < 20FEMALE 10-18Y 8-110MALE 10-18Y < 20ADULT MALE < 40Estradiol measurement is performed using the [employer] Access Estradiol Immunoassay. Estradiol testing is performed using a different test methodology at [facility] than [facility]. Direct resultcomparison should only be made within the same method. Performed By: #### 5 196-1 #### SHAI Pickard ([id number]) [facility] ([facility]) [address] [place] [address] Follicle Diameter USon 02-17 Follicle scan performed with follicle measurements in report. Trilaminar appearance to the endometrium is noted. Free fluid is noted in the right paraovarian space. Notably retroverted uterus. RIS SECTRA ONLY Radiology Study observation (narrative) [facility] Work Phone: Follicle Diameter USOrdered By: Leigh Ann Tuttle on 02-18-2024 [facility] Work Phone: KELSY US PELVIS LIMITED FOLLIC LES-FOLLICLE STUDIES PERFORMEDon 02-18-2024 [facility] PELVIS LIMITED FOLLICLES-FOLLICLE STUDIES PERFORMED Follicle scan performed with follicle measurements in report. Trilaminar appearance to the endometrium is noted. Free fluid is noted in the right paraovarian space. Notably retroverted uterus. Normal [facility] E2 [Mass/Vol]on 02-16-2024 REF VALUES FOLLICULAR PHASE 20-144 MID CYCLE 64-357 LUTEAL PHASE 56-214 POSTMENOPAUSE < 32 PREPUBERTY < 20 FEMALE 10-18Y 8-110 MALE 10-18Y < 20 ADULT MALE < 40 Estradiol measurement is performed using the [employer] Access Estradiol Immunoassay. Estradiol testing is performed using a different test methodology at [facility] than other [facility]. Direct result comparison should only be made within the same method. [facility] Estradiolon 02-16-2024 E2 [Mass/Vol] 639 pg/mL [facility] E2 [Mass/Vol] 639 pg/mL Normal [facility] Comment on above: Order Comment: REF V ALUESFOLLICULAR PHASE 20-144MID CYCLE 64-357LUTEAL PHASE 56-214POSTMENOPAUSE < 32PREPUBERTY < 20FEMALE 10-18Y 8-110MALE 10-18Y < 20ADULT MALE < 40Estradiol measurement is performed using the [employer] Access Estradiol Immunoassay. Estradiol testing is performed using a different test methodology at [facility] than [facility]. Direct resultcomparison should only be made within the same method. Performed By: #### 5 196-1 #### SHAI Pickard ([id number]) [facility] ([facility]) [address] [place] [address] [facility] US PELVIS LIMITED FOLLIC LES-FOLLICLE STUDIES PERFORMEDon 02-16-2024 [facility] PELVIS LIMITED FOLLICLES-FOLLICLE STUDIES PERFORMED Follicle scan performed with follicle measurements in report. and Trilaminar appearance to the endometrium is noted. Normal [facility] E2 [Mass/Vol]on 02-09-2024 REF VALUES FOLLICULAR PHASE 20-144 MID CYCLE 64-357 LUTEAL PHASE 56-214 POSTMENOPAUSE < 32 PREPUBERTY < 20 FEMALE 10-18Y 8-110 MALE 10-18Y < 20 ADULT MALE < 40 Estradiol measurement is performed using the [employer] Access Estradiol Immunoassay. Estradiol testing is performed using a different test methodology at [facility] than [facility]. Direct result comparison should only be made within the same method. [facility] Estradiolon 02-09-2024 E2 [Mass/Vol] pg/mL pg/mL [facility] E2 [Mass/Vol] pg/mL Normal [facility] Comment on above: Order Comment: REF V ALUESFOLLICULAR PHASE 20-144MID CYCLE 64-357LUTEAL PHASE 56-214POSTMENOPAUSE < 32PREPUBERTY < 20FEMALE 10-18Y 8-110MALE 10-18Y < 20ADULT MALE < 40Estradiol measurement is performed using the [employer] Access Estradiol Immunoassay. Estradiol testing is performed using a different test methodology at [facility]. Direct resultcomparison should only be made within the same method. Performed By: #### 5 196-1 #### SHAI Pickard ([id number]) [facility] ([facility]) [address] [place] [address] Follicle Diameter USon 02-08 Follicle scan performed with follicle measurements in report. MFM Radiology Study observation (narrative) [facility] Work Phone: Follicle Diameter USOrdered By: Juan Chavarria on 02-09-2024 [facility] Work Phone: Hematocrit Auto (Bld) [Volum e fraction]on 02-09-2024 Hematocrit (Bld) [Volume fraction] 42.9 % 36.0 - 46.0 % [facility] Interpretation and review of laboratory results Normal [facility] Hematocrit (Bld) [Volume fraction] 42.9 % Normal 36.0-46.0 [facility] Comment on above: Performed By: #### 4 544-3 #### JOSEPH ESQUIVEL ([id number]) [facility] ([facility]) [address] [place] [address] [facility] US PELVIS LIMITED FOLLIC LES-FOLLICLE STUDIES PERFORMEDon 02-09-2024 [facility] PELVIS LIMITED FOLLICLES-FOLLICLE STUDIES PERFORMED Follicle scan performed with follicle measurements in report. Normal [facility] HCG ( test) Ql (U)o n 01-28-2024 Interpretation and review of laboratory results Normal [facility] Work Phone: Preg Test, Ur Negative Negative [facility] Work Phone: [facility] Work Phone: No Panel Informationon 01-27 [...] Tolerated well, no immediate complications [facility] Work Phone: Surgical pathology studyon 0 01-28-2024 Surgical pathology study Pathology report.total SEE COMMENT Surgical Pathology Case: [id number] Authorizing Provider: Leigh Ann Tuttle MD Collected: 01/28/2024 1027 Ordering Location: [facility] Received: 01/28/2024 1027 [place] Pathologist: Yamila Leo MD Specimen: ENDOMETRIUM POLYPECTOMY [...] is entirely submitted in 1 cassette. JEK/SBS [facility] IGP,APTIMA HPV,AGE GDLNon AGE GDLN ACOG TESTING Note . [facility] Comment on above: TESTS RESULT FLAG UN ITS REF RANGE LAB Clinician Provided Cytology Information Source.............Cervix;Endocervix No. of containers..01 ThinPrep Vial Age Algo ACOG Telma... FLAG LEGEND: L-Low Normal,H-High Normal,LL-Alert Low,HH-Alert High <-Panic Low,>-Panic High,A-Abnormal,AA-Critical Abnormal Performed at: 01 =G [facility] [address] Nidhi Fay MD, IGP, RFX APTIMA HPV ASCU Note . [facility] Comment on above: TESTS RESULT FLAG UN ITS REF RANGE LAB DIAGNOSIS: 02 NEGATIVE FOR INTRAEPITHELIAL LESION OR MALIGNANCY. Specimen adequacy: 02 Satisfactory for evaluation. Endocervical and/or squamous metaplastic cells (endocervical component) are present. Performed by: 02 Isac Masters Field Engineer (ASCP) . 02 Note: Note 02 The Pap [...] Low,>-Panic High,A-Abnormal,AA-Critical Abnormal Performed at: [address] [address] Nidhi Fay MD, Performed at: =G - [facility] [address] [id number] Tennis Director: Nidhi Fay MD, Phone: [phone] Performed at: - [facility] [id number] Tennis Director: Nidhi Fay MD, Phone: [phone] BRUSH-SPATULA CERVIX ENDOCERVIX [facility] Blood type and Indirect anti body screen panel (Bld)on 2023 ABO group Nom (Bld) O [facility] Blood group antibody screen Ql Negative [facility] D Ag Ql (Bld) Positive [facility] ABO group Nom (Bld) O Normal [facility] Comment on above: Performed By: #### 3 4532-2 #### JOSEPH ESQUIVEL ([id number]) [facility] ([facility]) [address] [place] [address] [place] Blood group antibody screen Ql Negative [facility] Comment on above: Performed By: #### 3 4532-2 #### JOSEPH ESQUIVEL ([id number]) [facility] ([facility]) [address] [place] [address] [place] D Ag Ql (Bld) Positive [facility] Comment on above: Performed By: #### 3 4532-2 #### JOSEPH ESQUIVEL ([id number]) [facility] ([facility]) [address] C. trachomatis and N. gonorr hoeae DNA EDELMIRA+probe Nom (Unsp spec)on 2023 C. trachomatis rRNA EDELMIRA+probe Ql (Unsp spec) Negative Normal Negative [facility] Comment on above: Order Comment: The [...] By: #### 3 6903-3 #### SHAI Pickard ([id number]) [facility] ([facility]) [address] [place] [address] N. gonorrhoeae DNA Probe+sig amp Ql (Unsp spec) Negative Normal Negative [facility] Comment on above: Order Comment: The A [...] By: #### 3 6903-3 #### SHAI Pickard ([id number]) [facility] ([facility]) [address] [place], [place] [address] HIV 1+2 Ab+HIV1 p24 Agon HIV 1+2 Ab+HIV1 p24 Ag IA Ql Non-Reactive Normal Nonreactive [facility] Comment on above: Order Comment: HIV A g/Ab screen is performed using the Siemens HedgeChatter HIV Ag/Ab Combo assay which detects the presence of HIV p24 antigen as well as antibodies to HIV-1 (Group M and O) and HIV-2. No laboratory evidence of HIV infection. If acute HIV infection is suspected, consider testing for HIV RNA by PCR (viral load). Performed By: #### 5 6888-1 #### SHAI Pickard ([id number]) [facility] ([facility]) [address] [place], [place] [address] Hepatitis B virus surface Ag on 2023 HBV surface Ag IA Ql Non-Reactive Normal Nonreactive [facility] Comment on above: Result Comment: Biot in interference may cause falsely decreased results. Patients taking a Biotin dose of up to 5 mg/day should refrain from taking Biotin for 24 hours before sample collection. Providers may contact their local laboratory for further information. Performed By: #### 5 196-1 #### SHAI Pickard ([id number]) [facility] ([facility]) [address] [place], [place] [address] Hepatitis C virus Abon 12-10 HCV Ab Ql (S) Non-Reactive Normal Nonreactive [facility] Comment on above: Result Comment: Resu lts from patients taking biotin supplements or receiving high-dose biotin therapy should be interpreted with caution due to possible interference with this test. Providers may contact their local laboratory for further information. Performed By: #### 1 6128-1 #### SHAI Pickard ([id number]) [facility] ([facility]) [address] [place] [address] Rubella virus IgG IA Qnon Rubella virus IgG IA Ql Positive Normal Negative U [facility] Comment on above: Order Comment: [...] By: #### 5 334-8 #### SHAI Pickard ([id number]) [facility] ([facility]) [address] [place] [address] 18932 Rubella virus IgG Qn (S) 1.2 IA Normal <=0.7 IA [facility] Comment on above: Order Comment: NEGAT DEZ: [...] By: #### 5 334-8 #### SHAI Pickard ([id number]) [facility] ([facility]) [address] [place] [address]157 Treponema pallidum Ab.IgG+Ig Mon 2023 T. pallidum IgG+IgM IA Ql (S) Non-Reactive Normal Nonreactive [facility] Comment on above: Result Comment: No s ignificant level of Treponema pallidum antibody detected. Repeat testing in 2 to 4 weeks may be considered if early infection or incubating syphilis infection is suspected. Performed By: #### 4 7236-5 #### SHAI Pickard ([id number]) [facility] ([facility]) [address] [place] [address]60[address] VZV IgG IA Ql (S)on 12-11-19 24 VARICELLA ZOSTER IGG INDEX 5.6 IA High <=0.8 [facility] Comment on above: Order Comment: NEGAT DEZ: [...] By: #### 1 5410-4 #### SHAI Pickard ([id number]) [facility] ([facility]) [address] [place] [address] Varicella zoster virus Ab.Ig Biju 2023 VZV IgG IA Ql (S) Positive Abnormal Negative [facility] Comment on above: Order Comment: NEGAT [...] By: #### 1 5410-4 #### SHAI Pickard ([id number]) [facility] ([facility]) [address] [place] [address] Ambulatory Visit Summaryon 0 10-02-2023 Ambulatory Visit [...] knee anterior cruciate ligament allograft reconstruction with bygs-irkvke-vlku, debridment medial meniscus tear, patellofemoral chondroplasty-Grade I-II (07/28/2013), Tonsillectomy, tubes in the ears. 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 She has been taking edgw-jmv-rsqjrjt magnesium at night since initiating Topamax. Weight management. The patient expresses a desire to lose weight and re-initiate her Adipex. She has previously tried Aryan apks-uhj-euaoquk but found it ineffective. She does not [...] arms or hands, as well as any well testing operator strength weakness. She is agreeable trying [...] me in (more content not included)... Normal [facility] Comment on above: Result Comment: Elec tronically Signed By: Princess Dumont\.br\Date and Time Signed: 10/02/23 16:44 EDT\.br\Electronically Co-Signed By: Raj Chu\.br\Date and Time Co-Signed: 10/02/23 15:48 EDT Lab Reportson 10-02-2023 Lab Reports [id number] 02#[id number] Normal [facility] Patient Educationon 10-02-19 Patient Education BMI [...] numbers. This can be done either in [place] ([place] or metric measurements. Note that charts and online BMI calculators are available to help you find your BMI quickly and easily without having to do these calculations yourself. To calculate your BMI in Serbian ([place] measurements: 1. Measure your weight in [...] for Disease Control and Prevention: www.cdc.gov ? [place] Heart [employer]: www.heart.org ? National Heart, Lung, and Blood [place]: www.nhlbi.nih.gov Summary ? Body mass index (BMI) is a number that is calculated from a person's weight and height. ? BMI may help estimate how much of a person's weight is composed of fat. BMI can help identify those who may be at higher risk for certain medical problems. ? BMI can be measured using Serbian measurements or metric measurements. ? BMI charts are used to identify whether you are underweight, normal weight, overweight, or obese. This information is not intended to replace advice given to you by your health care provider. Make sure you discuss any questions you have with your health care provider. Document Revised: 01/11/2020 Document Reviewed: 11/18/2019 [employer] Patient Education ? 2022 [employer] Dermatology Eczema Eczema refers to a [...] (more content not included)... Normal [facility] Transfer Inon 09-02-2023 Transfer In [id number] 2#1.00TIFF Normal [facility] Family Medicine Office/Clini c Noteon 08-29-2023 [...] and encouraged her to go see her LACQUER DIPPING MACHINE OPERATOR. The patient was overweight with an elevated BMI. Her laboratories I ordered were not performed, and she did not do the x-ray that I ordered either. She presents for headaches again. Cervicalgia and persistent headaches. The patient underwent cervical x-ray in 02/20/2023 in [place], the day after her last visit on [...] in 06/2023 or 07/2023 and done at [place]. She is uncertain if cholesterol levels were checked. Her bowel movements and urination are normal. She and her switched clinics where she is the patient for an IVF and are waiting for an appointment within the next 2 months. She has a . 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 Ibuprofen every 6 to 8 hours. [...] (more content not included)... Normal [facility] Comment on above: Result Comment: Elec [...] numbers. This can be done either in Serbian (U[place] or metric measurements. Note that charts and online BMI calculators are available to help you find your BMI quickly and easily without having to do these calculations yourself. To calculate your BMI in Serbian ([place].) measurements: 1. Measure your weight in [...] for Disease Control and Prevention: www.cdc.gov ? [employer] Heart Association: www.heart.org ? National Heart, Lung, and Blood [place]: www.nhlbi.nih.gov Summary ? Body mass index (BMI) is a number that is calculated from a person's weight and height. ? BMI may help estimate how much of a person's weight is composed of fat. BMI can help identify those who may be at higher risk for certain medical problems. ? BMI can be measured using Serbian measurements or metric measurements. ? BMI charts are used to identify whether you are underweight, normal weight, overweight, or obese. This information is not intended to replace advice given to you by your health care provider. Make sure you discuss any questions you have with your health care provider. Document Revised: 01/11/2020 Document Reviewed: 11/18/2019 [employer] Patient Education ? 2022 [facility]. Endocrinology Carbohydrate Counting for Diabetes Mellitus, Adult [...] (more content not included)... Normal [facility] DHEA SERUMon 07-31-2022 Dehydroepiandrosterone (DHEA) 429 ng/dL Normal 31-701 [facility] Comment on above: Performed By: #### D HEA. #### [facility] [address], [place] [address] Dr. Meghna Alas ANTI-MULLERIAN HORMONEon Anti-Mullerian Hormone (AMH) 2.01 ng/mL Normal [facility] Comment on above: Result Comment: For assays employing antibodies, the possibility exists for interference by heterophile antibodies in the samples.1 1.Ramon Calderon Interferences in Immunoassays - still a threat. Clin. Chem. 2000; 46: 2217-4381. This test was developed and its performance characteristics determined by [employer]. It has not been cleared or approved by the Food and Drug Administration. Reference Range: Females 20 - 25y: 1.23 - 11.51 Median 4.70 AMH concentrations of >= 1.06 ng/mL is correlated with a better response to ovarian stimulation, produced more retrievable oocytes and higher odds of live according to Lindseyer et al. Fertility and Sterility. 2010: 94:9879-7281. The current AMH test method correlates with [...] tumor. Performed By: #### Abdi GARCIA #### [facility] [address] [address] [address] Meghna Alas PAP ACOG PANEL 2: 21 to 29on 07-29-2022 . . Normal [facility] Comment on above: Performed By: #### [id number] ####[facility] [address] [id number]. Meghna Alas Age Gdln ACOG Testing - Normal [facility] Comment on above: Performed By: #### [id number] ####[facility] [address] [id number]. Meghna Alas DIAGNOSIS: Comment Normal [facility] Comment on above: Result Comment: NEGA TIVE FOR INTRAEPITHELIAL LESION OR MALIGNANCY. Performed By: #### [id number] ####[facility] [address] [place], [place] [address]DrBetito Alas Methodology: Comment Normal [facility] Comment on above: Result Comment: This liquid based ThinPrep(R) pap test was screened with the use of an image guided system. Performed By: #### [id number] ####[facility] [address] [place], [place] [address]DrBetito Alas Note: Comment Normal [facility] Comment on above: Result Comment: The Pap smear is a screening test designed to aid in the detection of premalignant and malignant conditions of the uterine cervix. It is not a diagnostic procedure and should not be used as the sole means of detecting cervical cancer. Both false-positive and false-negative reports do occur. . Performed By: #### 4 [id number] ####[place] [address]DrBetito Alas Performed by: Comment Normal [facility] Comment on above: Result Comment: Antonella Villarreal, Supervisory Field Engineer (ASCP) Performed By: #### [id number] ####[facility] [address] [place], [place] [address]DrBetito Alas Reflex Criteria: Comment Normal [facility] Comment on above: Result Comment: The HPV DNA reflex criteria were not met with this specimen result therefore, no HPV testing was performed. . Performed By: #### [id number] ####[facility] [address] [place], [place] [address]DrBetito Alas Specimen adequacy: Comment Normal [facility] Comment on above: Result Comment: Sati sfactory for evaluation. Endocervical and/or squamous metaplastic cells (endocervical component) are present. Performed By: #### 4 [id number] ####[facility] [address] [place], [place] [address]DrBetito Alas DHEA-SULFATEon 07-27-2022 DHEA-Sulfate 195.0 ug/dL Normal 110.0-431.7 [facility] Comment on above: Performed By: #### D HEASUL #### [facility] [address], [place] [address] Dr. Meghna Alas FSHon 07-27-2022 FSH 11.4 mIU/mL Normal [facility] Comment on above: Result Comment: Adul t Female: Follicular phase 3.5 - 12.5 Ovulation phase 4.7 - 21.5 Luteal phase 1.7 - 7.7 Postmenopausal 25.8 - 134.8 Performed By: #### L [facility] #### [facility] [address] [address] [address] Meghna Alas LUTEINIZING HORMONE (LH)on 0 07-27-2022 LH 61.8 mIU/mL Normal [facility] Comment on above: Result Comment: Adul t Female: Follicular phase 2.4 - 12.6 Ovulation phase 14.0 - 95.6 Luteal phase 1.0 - 11.4 Postmenopausal 7.7 - 58.5 Performed By: #### L [facility] #### [facility] [address] [place], [place] [id number] Dr. Meghna Alas US PELVIS AND TRANSVAGon [...] pelvic free fluid Electronically authenticated by: [facility] Date: 2022-07-27 08:10 Normal [facility] CBC AUTO DIFFon 07-26-2022 BASO # 0.1 103/ul Normal 0.0-0.1 [facility] Comment on above: Performed By: #### C BC #### [facility] [address] [address] [address] Meghna Alas Basophils/100 WBC (Bld) 0.8 % Normal 0.2-2.0 [facility] Comment on above: Performed By: #### C BC #### [facility] [address] [address] [address] Meghna Alas EO # 0.2 103/ul Normal 0.0-0.7 [facility] Comment on above: Performed By: #### C BC #### [facility] [address] [address] [address] Meghna Alas Eosinophils/100 WBC (Bld) 3.7 % Normal 0.9-7.0 [facility] Comment on above: Performed By: #### C BC #### [facility] [address] [address] [address] Meghna Alas Erythrocyte distribution width (RBC) [Ratio] 11.7 % Normal 11.0-15.0 [facility] Comment on above: Performed By: #### C BC #### [facility] [address] [place] [address] Dr. Meghna Alas Hematocrit (Bld) [Volume fraction] 43.6 % Normal 36.0-48.0 [facility] Comment on above: Performed By: #### C BC #### [facility] [address] [address] [address] Meghna Alas Hemoglobin (Bld) [Mass/Vol] 14.9 g/dL Normal 12.0-16.0 [facility] Comment on above: Performed By: #### C BC #### [facility] [address] [address] [address] Meghna Alas IG # 0.02 10e3/ul Normal 0.00-0.03 [facility] Comment on above: Performed By: #### C BC #### [facility] [address] [place] [address] Dr. Meghna Alas IG % 0.3 % Normal 0.0-0.5 [facility] Comment on above: Performed By: #### C BC #### [facility] [address] [place] [address] Dr. Meghna Alas LYMPH # 1.7 103/ul Normal 1.2-3.8 [facility] Comment on above: Performed By: #### C BC #### [facility] [address] [place] [address] Dr. Meghna Alas Lymphocytes/100 WBC (Bld) 27.7 % Normal 20.5-60.0 [facility] Comment on above: Performed By: #### C BC #### [facility] [address] [place] [address] Dr. Meghna Alas MANUAL DIFF REQ NO Normal [facility] Comment on above: Performed By: #### C BC #### [facility] [address] [place] [address] Dr. Meghna Alas MCH (RBC) [Entitic mass] 30.7 pg Normal 26.7-34.0 [facility] Comment on above: Performed By: #### C BC #### [facility] [address] [place] [address] Dr. Meghna Alas MCHC (RBC) [Mass/Vol] 34.2 g/dL Normal 29.9-35.2 [facility] Comment on above: Performed By: #### C BC #### [facility] [address] [place] [address] Dr. Meghna Alas MCV (RBC) [Entitic vol] 89.7 fL Normal 81.0-99.0 [facility] Comment on above: Performed By: #### C BC #### [facility] [address] [place] [address] Dr. Meghna Alas MONO # 0.4 103/ul Normal 0.3-0.8 [facility] Comment on above: Performed By: #### C BC #### [facility] [address] [place] [address] Dr. Meghna Alas Monocytes/100 WBC (Bld) 7.1 % Normal 1.7-12.0 [facility] Comment on above: Performed By: #### C BC #### [facility] [address] [place] [address] Dr. Meghna Alas NEUT # 3.7 103/ul Normal 1.4-6.5 [facility] Comment on above: Performed By: #### C BC #### [facility] [address] [place] [address] Dr. Meghna Alas Neutrophils/100 WBC (Bld) 60.4 % Normal 43.0-75.0 [facility] Comment on above: Performed By: #### C BC #### [facility] [address] [place] [address] Dr. Meghna Alas Platelet mean volume (Bld) [Entitic vol] 11.3 fL Normal 9.5-13.5 [facility] Comment on above: Performed By: #### C BC #### [facility] [address] [place] [address] Dr. Meghna Alas PLT 154 103/ul Normal 150-450 [facility] Comment on above: Performed By: #### C BC #### [facility] [address] [place] [address] Dr. Meghna Alas RBC 4.86 106/ul Normal 4.20-5.40 [facility] Comment on above: Performed By: #### C BC #### [facility] [address] [place] [address] Dr. Meghna Alas WBC 6.2 103/ul Normal 4.0-11.0 [facility] Comment on above: Performed By: #### C BC #### [facility] [address] [place] [address] Dr. Meghna Alas FREE T4on 07-26-2022 Free T4 [Mass/Vol] 1.04 ng/dL Normal 0.76-1.46 [facility] Comment on above: Performed By: #### F T4 #### [facility] [address] [place] [address] Dr. Meghna Alas GLYCOHEMOGLOBIN A1Con 2022 ADA RECOMMENDATION SEE BELOW Normal [facility] Comment on above: Result Comment: ADA RECOMMENDED LIMIT 4.0 - 6.0 ADA THERAPEUTIC TARGET < 7.0 ACTION SUGGESTED > 7.0 Performed By: #### A 1C #### [facility] [address] [address] [address] Meghna Alas Glucose [Mass/Vol] 82 mg/dL Normal [facility] Comment on above: Performed By: #### A 1C #### [facility] [address] [address] [address] Meghna Alas HbA1c (Bld) [Mass fraction] 4.5 % Normal 4.5-6.2 [facility] Comment on above: Performed By: #### A 1C #### [facility] [address] [address] [address] Meghna Alas TSHon 07-26-2022 TSH 1.522 uIU/mL Normal 0.358-3.740 [facility] Comment on above: Performed By: #### T SH #### [facility] [address] [address] [address] Meghna Alas Vital Signs Date Time Vital Sign Value Performing Clinician Facility 01-16-2025 15:13-0400 Body mass index (BMI) [Ratio] 40.21 kg/m2 [employer] Work Phone: [facility] 01-16-2025 15:13-0400 Body weight 102.97 kg [employer] Work Phone: [facility] 01-16-2025 15:13-0400 Diastolic blood pressure 70 mm[Hg] [employer] Work Phone: [facility] 01-16-2025 15:13-0400 Systolic blood pressure 110 mm[Hg] [employer] Work Phone: [facility] 01-03-2025 10:15-0400 Body mass index (BMI) [Ratio] 39.47 kg/m2 [employer] Work Phone: [facility] 01-03-2025 10:15-0400 Body weight 101.06 kg Layo Sherwin DO Work Phone: [facility] 01-03-2025 10:15-0400 Diastolic blood pressure 74 mm[Hg] Layo Sherwin DO Work Phone: [facility] 01-03-2025 10:15-0400 Systolic blood pressure 118 mm[Hg] Layo Sherwin DO Work Phone: [facility] 12-19-2024 10:06-0400 Body mass index (BMI) [Ratio] 38.76 kg/m2 Layo Sherwin DO Work Phone: [facility] 12-19-2024 10:06-0400 Body weight 99.25 kg Layo Sherwin DO Work Phone: [facility] 12-19-2024 10:06-0400 Diastolic blood pressure 70 mm[Hg] Layo Sherwin DO Work Phone: [facility] 12-19-2024 10:06-0400 Systolic blood pressure 116 mm[Hg] Layo Sherwin DO Work Phone: [facility] 12-06-2024 08:33-0400 Body mass index (BMI) [Ratio] 38.09 kg/m2 Layo Sherwin DO Work Phone: [facility] 12-06-2024 08:33-0400 Body weight 97.52 kg Layo Sherwin DO Work Phone: [facility] 12-06-2024 08:33-0400 Diastolic blood pressure 70 mm[Hg] Layo Sherwin DO Work Phone: [facility] 12-06-2024 08:33-0400 Systolic blood pressure 100 mm[Hg] Layo Sherwin DO Work Phone: [facility] 11-08-2024 14:59-0400 Body mass index (BMI) [Ratio] 35.59 kg/m2 Layo Sherwin DO Work Phone: [facility] 11-08-2024 14:59-0400 Body weight 91.13 kg Layo Sherwin DO Work Phone: [facility] 11-08-2024 14:59-0400 Diastolic blood pressure 80 mm[Hg] Layo Sherwin DO Work Phone: [facility] 11-08-2024 14:59-0400 Systolic blood pressure 122 mm[Hg] Layo Sherwin DO Work Phone: [facility] 10-17-2024 13:08-0400 Body mass index (BMI) [Ratio] 35.52 kg/m2 Layo Sherwin DO Work Phone: [facility] 10-17-2024 13:08-0400 Body weight 90.95 kg Layo Sherwin DO Work Phone: [facility] 10-17-2024 13:08-0400 Diastolic blood pressure 82 mm[Hg] Layo Sherwin DO Work Phone: [facility] 10-17-2024 13:08-0400 Systolic blood pressure 126 mm[Hg] Layo Sherwin DO Work Phone: [facility] 10-11-2024 14:41-0400 Body mass index (BMI) [Ratio] 35.22 kg/m2 Layo Sherwin DO Work Phone: [facility] 10-11-2024 14:41-0400 Body weight 90.17 kg Layo Sherwin DO Work Phone: [facility] 10-11-2024 14:41-0400 Diastolic blood pressure 74 mm[Hg] Layo Sherwin DO Work Phone: [facility] 10-11-2024 14:41-0400 Systolic blood pressure 112 mm[Hg] Layo Sherwin DO Work Phone: [facility] 09-06-2024 15:31-0400 Body mass index (BMI) [Ratio] 33.17 kg/m2 Brandy SEARS Work Phone: [facility] 09-06-2024 15:31-0400 Body weight 84.94 kg Brandy SEARS Work Phone: [facility] 09-06-2024 15:31-0400 Diastolic blood pressure 82 mm[Hg] Brandy Sissy SEARS Work Phone: [facility] 09-06-2024 15:31-0400 Systolic blood pressure 110 mm[Hg] Brandy Higginsbryant SEARS Work Phone: [facility] 08-08-2024 13:08-0400 Body mass index (BMI) [Ratio] 32.2 kg/m2 Layo Sherwin DO Work Phone: [facility] 08-08-2024 13:08-0400 Body weight 82.46 kg Layo Sherwin DO Work Phone: [facility] 08-08-2024 13:08-0400 Diastolic blood pressure 64 mm[Hg] Layo Sherwin DO Work Phone: [facility] 08-08-2024 13:08-0400 Systolic blood pressure 100 mm[Hg] Layo Sherwin DO Work Phone: [facility] 07-29-2024 09:53-0400 Body mass index (BMI) [Ratio] 31.18 kg/m2 Noms Nurse [facility] 07-29-2024 09:53-0400 Body weight 79.83 kg Noms Nurse [facility] 07-29-2024 09:53-0400 Diastolic blood pressure 72 mm[Hg] Noms Nurse [facility] 07-29-2024 09:53-0400 Systolic blood pressure 118 mm[Hg] Noms Nurse [facility] 04-06-2024 14:04-0500 Blood Pressure Location Mallory Jauregui [facility] 04-06-2024 14:04-0500 Diastolic blood pressure 74 mm[Hg] Malloryly SethiJuventino [facility] 04-06-2024 14:04-0500 Heart rate 80 /min Mallory Sethicross [facility] 04-06-2024 14:04-0500 SaO2% (BldA) [Mass fraction] 100 % Mallory Jauregui [facility] 04-06-2024 14:04-0500 Systolic blood pressure 108 mm[Hg] Mallory Jauregui [facility] 03-22-2024 10:45-0500 Diastolic blood pressure 62 mm[Hg] Juan Chavarria MD Work Phone: [facility] 03-22-2024 10:45-0500 Heart rate 65 /min Juan Chavarria MD Work Phone: [facility] 03-22-2024 10:45-0500 Respiratory rate 17 /min Juan Chavarria MD Work Phone: [facility] 03-22-2024 10:45-0500 SaO2% (BldA) [Mass fraction] 100 % Juan Chavarria MD Work Phone: [facility] 03-22-2024 10:45-0500 Systolic blood pressure 94 mm[Hg] Juan Chavarria MD Work Phone: [facility] 03-22-2024 09:45-0500 Body temperature 97.3 [degF] Juan Chavarria MD Work Phone: [facility] 03-22-2024 08:29-0500 Body height 160 cm Juan Chavarria MD Work Phone: [facility] 03-22-2024 08:29-0500 Body mass index (BMI) [Ratio] 29.25 kg/m2 Juan Chavarria MD Work Phone: [facility] 03-22-2024 08:29-0500 Body weight 74.9 kg Juan Chavarria MD Work Phone: [facility] 02-23-2024 09:49-0400 Body temperature 97.7 [degF] Jaun Chavarria MD Work Phone: [facility] 02-23-2024 09:49-0400 Diastolic blood pressure 65 mm[Hg] Juan Chavarria MD Work Phone: [facility] 02-23-2024 09:49-0400 Heart rate 94 /min Juan Chavarria MD Work Phone: [facility] 02-23-2024 09:49-0400 Respiratory rate 22 /min Juan Chavarria MD Work Phone: [facility] 02-23-2024 09:49-0400 SaO2% (BldA) [Mass fraction] 100 % Juan Chavarria MD Work Phone: [facility] 02-23-2024 09:49-0400 Systolic blood pressure 102 mm[Hg] Juan Chavarria MD Work Phone: [facility] 02-23-2024 07:27-0400 Body height 160 cm Juan Chavarria MD Work Phone: [facility] 02-23-2024 07:27-0400 Body mass index (BMI) [Ratio] 29.41 kg/m2 Juan Chavarria MD Work Phone: [facility] 02-23-2024 07:27-0400 Body weight 75.3 kg Juan Chavarria MD Work Phone: [facility] 01-28-2024 10:31-0400 Diastolic blood pressure 59 mm[Hg] Leigh Ann Tuttle MD Work Phone: [facility] 01-28-2024 10:31-0400 Heart rate 71 /min Leigh Ann Tuttle MD Work Phone: [facility] 01-28-2024 10:31-0400 Respiratory rate 20 /min Leigh Ann Tuttle MD Work Phone: [facility] 01-28-2024 10:31-0400 SaO2% (BldA) [Mass fraction] 100 % Leigh Ann Tuttle MD Work Phone: [facility] 01-28-2024 10:31-0400 Systolic blood pressure 101 mm[Hg] Leigh Ann Tuttle MD Work Phone: [facility] 01-28-2024 09:31-0400 Body temperature 98.1 [degF] Leigh Ann Tuttle MD Work Phone: [facility] 01-28-2024 08:48-0400 Body height 160 cm Leigh Ann Tuttle MD Work Phone: [facility] 01-28-2024 08:48-0400 Body mass index (BMI) [Ratio] 29.21 kg/m2 Leigh Ann Tuttle MD Work Phone: [facility] 01-28-2024 08:48-0400 Body weight 74.8 kg Leigh Ann Tuttle MD Work Phone: [facility] 01-14-2024 10:52-0400 Body mass index (BMI) [Ratio] 29.43 kg/m2 Brandy Sheehan PA Work Phone: [facility] 01-14-2024 10:52-0400 Body weight 75.35 kg Brandy Sheehan PA Work Phone: [facility] 01-14-2024 10:52-0400 Diastolic blood pressure 70 mm[Hg] Brandy Sheehan PA Work Phone: [facility] 01-14-2024 10:52-0400 Systolic blood pressure 120 mm[Hg] Brandy Sheehan PA Work Phone: [facility] 12-28-2023 10:09-0400 Body height 160 cm Juan Chavarria MD Work Phone: [facility] 12-28-2023 10:09-0400 Body mass index (BMI) [Ratio] 30.11 kg/m2 Juan Chavarria MD Work Phone: [facility] 12-28-2023 10:09-0400 Body weight 77.11 kg Juan Chavarria MD Work Phone: [facility] 12-28-2023 10:09-0400 Diastolic blood pressure 81 mm[Hg] Juan Chavarria MD Work Phone: [facility] 12-28-2023 10:09-0400 Heart rate 62 /min Juan Chavarria MD Work Phone: [facility] 12-28-2023 10:09-0400 Systolic blood pressure 119 mm[Hg] Juan Chavarria MD Work Phone: [facility] 2023 08:46-0400 Body height 160 cm Trish Thorpe PERSONNEL ASSISTANT-[employer] GR[employer]ER Work Phone: [facility] 2023 08:46-0400 Body mass index (BMI) [Ratio] 29.23 kg/m2 Trish Thorpe PERSONNEL ASSISTANT-[employer] GR[employer]ER Work Phone: [facility] 2023 08:46-0400 Body weight 74.84 kg Trish Thorpe PERSONNEL ASSISTANT-[employer] GR[employer]ER Work Phone: [facility] 2023 08:46-0400 Diastolic blood pressure 67 mm[Hg] Trish Thorpe PERSONNEL ASSISTANT-[employer]ENS GR[employer]ER Work Phone: [facility] 2023 08:46-0400 Heart rate 72 /min Trish Thorpe PERSONNEL ASSISTANT-[employer] GR[employer]ER Work Phone: [facility] 2023 08:46-0400 Systolic blood pressure 122 mm[Hg] Trish Thorpe PERSONNEL ASSISTANT-[employer] GR[employer]ER Work Phone: [facility] 10-02-2023 11:14-0400 Blood Pressure Location Princess Rapp [facility] 10-02-2023 11:14-0400 Body temperature 98.24 [degF] Princess Rapp [facility] 10-02-2023 11:14-0400 Diastolic blood pressure 66 mm[Hg] Princess Rapp [facility] 10-02-2023 11:14-0400 Heart rate 65 /min Princess Rapp [facility] 10-02-2023 11:14-0400 SaO2% (BldA) [Mass fraction] 98 % Princess Rapp [facility] 10-02-2023 11:14-0400 Systolic blood pressure 118 mm[Hg] Princess Rapp [facility] 08-27-2023 17:44-0400 Blood Pressure Location Princess Rapp [facility] 08-27-2023 17:44-0400 Body temperature 98.06 [degF] Princess Rapp [facility] 08-27-2023 17:44-0400 Diastolic blood pressure 76 mm[Hg] Princess Rapp [facility] 08-27-2023 17:44-0400 Heart rate 85 /min Princess Rapp [facility] 08-27-2023 17:44-0400 Respiratory rate 14 /min Princess Rapp [facility] 08-27-2023 17:44-0400 SaO2% (BldA) [Mass fraction] 99 % Princess Rapp [facility] 08-27-2023 17:44-0400 Systolic blood pressure 110 mm[Hg] Princess Rapp [facility] 02-19-2023 07:41-0400 Body temperature 97.7 [degF] Princess Rapp [facility] 02-19-2023 07:41-0400 Diastolic blood pressure 70 mm[Hg] Princess Rapp [facility] 02-19-2023 07:41-0400 Heart rate 81 /min Princess Rapp [facility] 02-19-2023 07:41-0400 SaO2% (BldA) [Mass fraction] 99 % Princess Rapp [facility] 02-19-2023 07:41-0400 Systolic blood pressure 110 mm[Hg] Princess Rapp [facility] 07-24-2021 16:57-0400 Blood Pressure Location Leigh Ann Covington [facility] 07-24-2021 16:57-0400 Body temperature 97.7 [degF] Leigh Ann Covington [facility] 07-24-2021 16:57-0400 Diastolic blood pressure 68 mm[Hg] Leigh Ann Covington [facility] 07-24-2021 16:57-0400 Heart rate 88 /min Leigh Ann Covington [facility] 07-24-2021 16:57-0400 SaO2% (BldA) [Mass fraction] 99 % Leigh Ann Covington [facility] 07-24-2021 16:57-0400 Systolic blood pressure 122 mm[Hg] Leigh Ann Bojorquezell [facility] Encounters Encounter Date Encounter Type Care Provider Facility Start: 01-25-2025 End: 01-25-2025 Clinisync Result Encounter Layo Courtney DO Work Phone: [facility] Unsolicited Start: 01-25-2025 End: 01-25-2025 Clinisync Result Encounter Layo Sherwin DO Work [...] sheet Layo Sherwin DO Work Phone: [facility] Comment on above: 33 weeks gestation o f ([facility]); Third trimester ([facility]); Group B streptococcal infection; resulting from in vitro fertilization in first trimester ([facility]) Start: 01-16-2025 End: 01-16-2025 ambulatory LAYO SHERWIN Not Available Start: 01-16-2025 End: 01-16-2025 Bamboo flowsheet Layo Sherwin DO Work Phone: [facility] Start: 01-16-2025 End: 01-16-2025 Bamboo flowsheet Layo Sherwin DO Work Phone: [facility] [place] [facility] Start: 01-10-2025 End: 01-10-2025 Clinisync Result Encounter Layo Sherwin DO Work Phone: [facility] External Department Unsolicited Start: 01-10-2025 End: 01-10-2025 Clinisync Result Encounter Layo Sherwin DO Work Phone: [facility] External Department Unsolicited Start: 01-03-2025 End: 01-03-2025 Bamboo flowsheet Layo Sherwin DO Work Phone: [facility] Start: 01-03-2025 End: 01-03-2025 Bamboo flowsheet Layo Sherwin DO Work Phone: [facility] Start: 01-03-2025 End: 01-03-2025 flow sheet Layo Sherwin DO Work Phone: [facility] [place] [facility] Comment on above: Third trimester preg rehan ([facility]); 31 weeks gestation of ([facility]); resulting from in vitro fertilization in third trimester ([facility]) Start: 01-03-2025 End: 01-03-2025 ambulatory LAYO SHERWIN Not Available Start: 12-19-2024 End: 12-19-2024 flow sheet Layo Sherwin DO Work Phone: [facility] Comment on above: 29 weeks gestation o f ([facility]); Third trimester ([facility]); Leukocytes in urine; Other microscopic hematuria Start: 12-19-2024 End: 12-19-2024 ambulatory LAYO SHERWIN Not Available Start: 12-06-2024 End: 12-06-2024 Bamboo flowsheet Layo Sherwin DO Work Phone: [facility] [place] [facility] Start: 12-06-2024 End: 12-06-2024 Bamboo flowsheet Layo Sherwin DO Work Phone: [facility] Start: 12-06-2024 End: 12-06-2024 Clinisync Result Encounter Layo Sherwin DO Work Phone: [facility] External Department Unsolicited Start: 12-06-2024 End: 12-06-2024 flow sheet Layo Sherwin DO Work Phone: [facility] [place] [facility] Comment on above: 27 weeks gestation o f ([facility]); Second trimester ([facility]) Start: 12-06-2024 End: 12-06-2024 ambulatory LAYO SHERWIN Not Available Start: 11-26-2024 End: 11-26-2024 Clinisync Result Encounter Layo Sherwin DO Work Phone: [facility] External [facility] Unsolicited Start: 11-26-2024 End: 11-26-2024 Clinisync Result Encounter Layo Sherwin DO Work Phone: [facility] External Department Unsolicited Start: 11-08-2024 End: 11-08-2024 flow sheet Layo Sherwin DO Work Phone: [facility] Comment on above: Second trimester pre gnancy ([facility]); 26 weeks gestation of ([facility]); Diabetes mellitus screening Start: 11-08-2024 End: 11-08-2024 [...] pain without sciatica (Primary Dx); Second trimester ([facility]); 20 weeks gestation of ([facility]) Start: 10-17-2024 End: 10-17-2024 ambulatory LAYO SHERWIN [...] Ultrasound 1 Valeria Hay Comment on above: ([facility]) Start: 10-07-2024 End: 10-07-[address] [facility] Start: 09-22-2024 End: 09-22-2024 ambulatory BRANDY [...] End: 07-11-2024 Patient encounter procedure Donya Abernathy PERSONNEL ASSISTANT-LENS GRINDER Work Phone: [facility] Comment on above: Fertility testing (P rimary Dx); Encounter to determine viability of , single or unspecified fetus Start: 07-11-2024 End: 07-11-2024 ambulatory DONYA ABERNATHY [facility] Start: 06-30-2024 End: 06-30-[address] [facility] Start: 06-23-2024 End: 06-23-2024 ambulatory [facility] Start: 06-23-2024 End: 06-23-2024 ambulatory [facility] Start: 06-13-2024 End: 06-13-2024 Subsequent hospital visit by physician Juan Chavarria MD Work Phone: Valeria [facility] Comment on above: Encounter for assist ed reproductive fertility cycle Start: 06-13-2024 End: 06-13-2024 ambulatory JUAN Zamora [facility] Start: 06-07-2024 End: 06-07-2024 ambulatory [facility] Start: 06-06-2024 End: 06-06-2024 [facility] Start: 06-06-2024 End: 06-06-2024 Professional / ancillary services management Myles [email or web address] Kelsy Ultrasound [facility] [place] Comment on above: Female infertility Start: 06-06-2024 End: 06-06-2024 ambulatory [facility] Start: 05-23-2024 End: 05-23-2024 ambulatory [facility] Start: 04-06-2024 ambulatory Mallory Jauregui Faci lity:[facility] Start: 04-06-2024 End: 04-06-2024 Patient encounter procedure Mallory Jauregui [facility] Start: 03-22-2024 End: 03-22-2024 Subsequent hospital visit by physician Juan Chavarria MD Work Phone: [facility] Comment on above: Encounter for assist ed reproductive fertility cycle Start: 03-22-2024 End: 03-22-2024 ambulatory JUAN Zamora [facility] Start: 03-21-2024 End: 03-21-2024 ambulatory [facility] Start: 03-20-2024 End: 03-20-2024 Professional / ancillary services management Myles [id number] Kelsy Ultrasound [facility] Hay Comment on above: Female infertility Start: 03-20-2024 End: 03-20-2024 ambulatory DONYA [facility] Start: 03-19-2024 End: 03-19-2024 Professional / ancillary services management Mac [id number] Kelsy Ultrasound [facility] Comment on above: Female infertility Start: 03-19-2024 End: 03-19-2024 ambulatory DONYA [facility] Start: 03-17-2024 End: 03-17-2024 [facility] Start: 03-17-2024 End: 03-17-2024 Professional / ancillary services management Mac [id number] Kelsy Ultrasound [facility] Comment on above: Female infertility Start: 03-17-2024 End: 03-17-2024 ambulatory [facility] Start: 03-15-2024 End: 03-15-2024 ambulatory [facility] Start: 03-15-2024 End: 03-15-2024 [facility] Start: 03-15-2024 End: 03-15-2024 Professional / ancillary services management Mac [id number] Kelsy Ultrasound [facility] Hay Comment on above: Female infertility Start: 03-09-2024 End: 03-09-2024 [facility] Start: 03-09-2024 End: 03-09-2024 Patient encounter status [facility] Start: 03-09-2024 End: 03-09-2024 Professional / ancillary services management Mac [id number] Kelsy Ultrasound [facility] Hay Comment on above: Female infertility; Pre-procedure lab exam Start: 03-09-2024 End: 03-09-2024 ambulatory AMERICA QUINTANILLA [facility] Start: 02-23-2024 End: 02-23-2024 Subsequent hospital visit by physician Juan Chavarria MD Work Phone: Val[facility] Comment on above: Encounter for assist ed reproductive fertility cycle Start: 02-23-2024 End: 02-23-2024 ambulatory JUAN CHAVARRIA [facility] Start: 02-22-2024 End: 02-22-2024 ambulatory [facility] Start: 02-21-2024 End: 02-21-2024 Professional / ancillary services management Mac [id number] Kelsy Ultrasound [facility] Comment on above: Female infertility Start: 02-21-2024 End: 02-21-2024 ambulatory [facility] Start: 02-20-2024 End: 02-20-2024 ambulatory [facility] Start: 02-20-2024 End: 02-20-2024 Professional / ancillary services management Mac [id number] Kelsy Ultrasound Valeria Saeedfadi Hay Comment on above: Female infertility Start: 02-20-2024 End: 02-20-2024 ambulatory [facility] Start: 02-18-2024 End: 02-18-2024 ambulatory [facility] Start: 02-18-2024 End: 02-18-2024 Professional / ancillary services management Mac [id number] K[facility] Comment on above: Female infertility Start: 02-18-2024 End: 02-18-2024 ambulatory [facility] Start: 02-16-2024 End: 02-16-2024 Professional / ancillary services management Mac [id number] Kelsy Ultrasound [facility] [place] Comment on above: Female infertility Start: 02-16-2024 End: 02-16-2024 ambulatory [facility] Start: 02-09-2024 End: 02-09-2024 Patient encounter status [facility] Start: 02-09-2024 End: 02-09-2024 Professional / ancillary services management Mac [id number] Kelsy Ultrasound [facility] [place] Comment on above: Pre-procedure lab ex am; Female infertility Start: 02-09-2024 End: 02-09-2024 ambulatory [facility] Start: 02-02-2024 End: 02-02-2024 ambulatory [facility] Start: 01-28-2024 End: 01-28-2024 Subsequent hospital visit by physician Leigh Ann Tuttle MD Work Phone: Valeria Hay Comment on above: Endometrial polyp Start: 01-28-2024 End: 01-28-2024 ambulatory LEIGH ANN TUTTLE [facility] Start: 01-25-2024 End: 01-25-2024 ambulatory [facility] Start: 01-25-2024 End: 01-25-2024 Encounter for preprocedural laboratory examination [facility] Start: 01-14-2024 End: 01-14-2024 Bamboo flowsheet [...] encounter procedure Juan Chavarria MD Work Phone: [facility] Comment on above: Fertility testing [Z 31.41] (Primary Dx); 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 [Z31.81, N97.8] Start: 12-28-2023 End: 12-28-2023 ambulatory JUAN CHAVARRIA [facility] Start: 12-25-2023 End: 12-25-2023 ambulatory AFUA JULIAN [facility] Start: 2023 End: 2023 ambulatory [facility] Start: 2023 End: 2023 Patient encounter procedure Trish Thorpe PERSONNEL ASSISTANT-LENS GRINDER Work Phone: [facility] Comment on above: Encounter for screen ing for other viral diseases (Primary Dx); Encounter for Rh blood typing; Screening for STDs (sexually transmitted diseases); Genetic screening; Fertility testing; Female infertility associated with male factors Start: 2023 End: 2023 Patient encounter status Trish Thorpe PERSONNEL ASSISTANT-LENS GRINDER Work Phone: [facility] Work Phone: Start: 2023 End: 2023 ambulatory TRISH THORPE [facility] Start: 2023 End: 2023 Encounter for blood typing TRISH THORPE [facility] Start: 10-21-2023 ambulatory Princess Rapp [facility]y:[facility] Start: 10-02-2023 End: 10-02-2023 ambulatory Princess Rapp Facility:[facility] Start: 10-02-2023 End: 10-02-2023 Patient encounter procedure Princess Rapp [facility] Start: 08-27-2023 End: 08-27-2023 ambulatory Princess Rapp Facility:[facility] Start: 08-27-2023 End: 08-27-2023 Patient encounter procedure Princess Rapp [facility] Start: 03-25-2023 End: 03-25-2023 Patient encounter procedure Princess Rapp [facility] Start: 02-19-2023 End: 02-19-2023 Patient encounter procedure Princess Rapp [facility] Start: 07-26-2022 End: 07-27-[address] LAYO COURTNEY . Facility:[facility] Start: 07-23-2022 End: 07-23-[address] LAYO COURTNEY . Facility:[facility] Start: 07-24-2021 End: 07-24-2021 Patient encounter procedure Leigh Ann Covington [facility] Procedures Date Procedure Procedure Detail Performing Clinician Start: 01-25-2025 US OB BPP W NON-STRESS Layo Sherwin DO Work Phone: Start: 01-24-2025 US OB BPP W NON-STRESS [...] pelvic nonobstetr ic image dcmtn limited/f/u Donya Melly Josemanuel PERSONNEL ASSISTANT-LENS GRINDER Work Phone: Start: 03-22-2024 Follicle puncture oo cyte retrieval any method Donya Abernathy PERSONNEL ASSISTANT-LENS GRINDER Work Phone: Start: 03-20-2024 Us pelvic nonobstetr ic image dcmtn limited/f/u Donya Abernathy PERSONNEL ASSISTANT-LENS GRINDER Work Phone: Start: 03-20-2024 Assay of estradiol America R Dwight PERSONNEL ASSISTANT-LENS GRINDER Work Phone: Start: 03-19-2024 Us pelvic nonobstetr ic image dcmtn limited/f/u Donya Abernathy PERSONNEL ASSISTANT-LENS GRINDER Work Phone: Start: 03-17-2024 Us pelvic nonobstetr ic image dcmtn limited/f/u Donya Abernathy PERSONNEL ASSISTANT-LENS GRINDER Work Phone: Start: 03-17-2024 Assay of estradiol Donya Abernathy PERSONNEL ASSISTANT-LENS GRINDER Work Phone: Start: 03-15-2024 Us pelvic nonobstetr ic image dcmtn limited/f/u Donya Abernathy PERSONNEL ASSISTANT-LENS GRINDER Work Phone: Start: 03-15-2024 Assay of estradiol Donya Abernathy PERSONNEL ASSISTANT-LENS GRINDER Work Phone: Start: 03-09-2024 Us pelvic nonobstetr ic image dcmtn limited/f/u America R Dwight PERSONNEL ASSISTANT-LENS GRINDER Work Phone: Start: 03-09-2024 Blood count hematocrit Donya Abernathy PERSONNEL ASSISTANT-LENS GRINDER Work Phone: Start: 02-23-2024 Follicle puncture oo cyte retrieval any method Beth Warren MD Work Phone: Start: 02-21-2024 Us pelvic nonobstetr ic image dcmtn limited/f/u America R Dwight PERSONNEL ASSISTANT-LENS GRINDER Work Phone: Start: 02-21-2024 Gonadotropin luteini zing hormone Beti Warren MD Work Phone: Start: 02-18-2024 Us pelvic nonobstetr ic image dcmtn limited/f/u America R Dwight PERSONNEL ASSISTANT-LENS GRINDER Work Phone: Start: 02-18-2024 Assay of estradiol America Quintanilla PERSONNEL ASSISTANT-LENS GRINDER Work Phone: Start: 02-16-2024 Assay of estradiol America Quintanilla PERSONNEL ASSISTANT-LENS GRINDER Work Phone: Start: 02-09-2024 Blood count hematocrit America Quintanilla PERSONNEL ASSISTANT-LENS GRINDER Work Phone: Start: 02-09-2024 Us pelvic nonobstetr ic image dcmtn limited/f/u America Quintanilla PERSONNEL ASSISTANT-LENS GRINDER Work Phone: Start: 01-28-2024 Hysteroscopy bx endometrium&/polypc [...] knee anterior cruciate ligament allograft reconstruction with [id number], debridment medial meniscus tear, patellofemoral chondroplasty-Grade I-II Leigh Ann Covington Tonsillectomy Leigh Ann Covington tubes in the ears Leigh Ann bartholomew Plan of Treatment Date Care Activity Detail Author Start: 2072 RSV High Risk: (Elderly (60+) or Population) (1 - 1-dose 75+ series) RSV High Risk: (Elderly (60+) or Population) (1 - 1-dose 75+ series) [facility] Start: 12-12-2047 Zoster Vaccines (1 of 2) Zoster Vaccines (1 of 2) [facility] Start: 01-13-2027 Screening for malignant neoplasm of cervix [facility] Start: 01-31-2025 End: 01-31-2025 Patient encounter procedure 01/31/2025 1:50 PM EDT Routine SHIRA DE SOUZAN [address] [place] [id number] Maria M Guerrero, LE[employer] [address] [place] [id number] [facility] Start: 01-30-2025 End: 01-30-2025 Patient encounter procedure 01/30/2025 3:50 PM EDT Routine SHIRA ZACARIAS [address] [place] [phone] Maria M Guerrero, LEAD [employer] [address] [place] [address] SHIRA [facility] Start: 01-16-2025 End: 01-16-2025 Patient encounter procedure SHIRA Naidu Comment on above: Arrived Start: 01-03-2025 End: 07-03-2025 US biophysical profile w non stress test US biophysical profile w non stress test Imaging Routine resulting from in vitro fertilization in third trimester ([facility]) Expected: 01/03/2025 (Approximate), Expires: 07/03/2025 [facility] Work Phone: Comment on above: Expected: 01/03/2025 (Approximate), Expi res: 07/03/2025 Start: 01-03-2025 End: 01-03-2025 Patient encounter procedure SHIRA Naidu Comment on above: Arrived Start: 01-02-2025 Influenza vaccination Influenza Vaccine (Season Ended) [facility] Start: 12-19-2024 End: 12-19-2024 Professional / ancillary services management 12/19/2024 9:30 AM EDT Ancillary Procedure SHIRA ZACARIAS [address] [place] [address] [facility] [place] [facility] Start: 12-19-2024 End: 12-19-2024 Patient encounter procedure [facility] Start: 12-06-2024 End: 12-06-2024 Patient encounter procedure [facility] Comment on above: Arrived Start: 11-08-2024 End: 11-08-2024 Patient encounter procedure 11/08/2024 2:40 PM EDT Routine [facility] [address] [place] [id number] Layo Courtney, DO [address] [place] [address] [facility] Start: 11-08-2024 End: 11-08-2025 CBC panel - Blood by Automated count CBC Lab Routine Diabetes mellitus screening Expected: 11/08/2024 (Approximate), Expires: 11/08/2025 [facility] Work Phone: Comment on above: Expected: 11/08/2024 (Approximate), Expi res: 11/08/2025 Start: 11-08-2024 End: 11-08-2025 Measurement of glucose 1 hour after glucose challenge for glucose tolerance test Glucose tolerance, 1 hour Lab Routine Diabetes mellitus screening Expected: 11/08/2024 (Approximate), Expires: 11/08/2025 [facility] Comment on above: Expected: 11/08/2024 (Approximate), Expi res: 11/08/2025 Start: 10-17-2024 End: 10-17-2024 Patient encounter procedure 10/17/2024 1:00 PM EDT Routine [facility] [address] [facility] [place] [phone] Layo Courtney, DO [address] [place] [address] Arrived [facility] Comment on above: Arrived Start: 10-11-2024 End: 10-11-2024 Patient encounter procedure [facility] Comment on above: Arrived Start: 10-11-2024 End: 10-11-2025 Bile acids, total Bile acids, total Lab Routine Pruritus Expected: 10/11/2024 (Approximate), Expires: 10/11/2025 [facility] Comment on above: Expected: 10/11/2024 (Approximate), Expi res: 10/11/2025 Start: 10-11-2024 End: 10-11-2025 CBC W Auto Differential panel - Blood CBC and differential Lab Routine Pruritus Expected: 10/11/2024 (Approximate), Expires: 10/11/2025 [facility] Comment on above: Expected: 10/11/2024 (Approximate), Expi res: 10/11/2025 Start: 10-11-2024 End: 10-11-2025 Hepatic function 2000 panel - Serum or Plasma Hepatic function panel Lab Routine Pruritus Expected: 10/11/2024 (Approximate), Expires: 10/11/2025 [facility] Comment on above: Expected: 10/11/2024 (Approximate), Expi res: 10/11/2025 Start: 10-11-2024 End: 10-11-2025 Hepatitis C virus Ab [Presence] in Serum or Plasma by Immunoassay Hepatitis C antibody Lab Routine Pruritus Expected: 10/11/2024 (Approximate), Expires: 10/11/2025 [facility] Work Phone: Comment on above: Expected: 10/11/2024 (Approximate), Expi res: 10/11/2025 Start: 10-11-2024 End: 10-11-2025 Thyrotropin [Units/volume] in Serum or Plasma TSH Lab Routine Pruritus Expected: 10/11/2024 (Approximate), Expires: 10/11/2025 [facility] Comment on above: Expected: 10/11/2024 (Approximate), Expi res: 10/11/2025 Start: 09-06-2024 End: 09-06-2024 Patient encounter procedure [facility] Comment on above: Arrived Start: 09-06-2024 End: 11-06-2024 Alpha fetoprotein, maternal Alpha fetoprotein, maternal Lab Routine Second trimester Expected: 09/06/2024 (Approximate), Expires: 11/06/2024 [facility] Comment on above: Expected: 09/06/2024 (Approximate), Expi res: 11/06/2024 Start: 09-06-2024 End: 12-07-2024 US for US OB 14+ weeks anatomy scan Imaging Routine Screening, , for anatomic survey Expected: 09/06/2024, Expires: 12/07/2024 [facility] Comment on above: Expected: 09/06/2024, Expires: Start: 08-08-2024 End: 08-08-2024 Patient encounter procedure [facility] Comment on above: Arrived Start: 07-29-2024 End: 07-29-2025 ABO/Rh ABO/Rh Lab Routine Missed menses , unspecified gestational age Expected: 07/29/2024 (Approximate), Expires: 07/29/2025 [facility] Comment on above: Expected: 07/29/2024 (Approximate), Expi res: 07/29/2025 Start: 07-29-2024 End: 07-29-2025 Blood type and Indirect antibody screen panel - Blood Type and screen Lab Routine Missed menses , unspecified gestational age Expected: 07/29/2024 (Approximate), Expires: 07/29/2025 [facility] Work Phone: Comment on above: Expected: 07/29/2024 (Approximate), Expi res: 07/29/2025 Start: 07-29-2024 End: 07-29-2025 Drugs of abuse panel - Urine by Screen method Rapid drug screen, urine Lab Routine , unspecified gestational age Encounter for supervision of normal first in first trimester Expected: 07/29/2024 (Approximate), Expires: 07/29/2025 [facility] Comment on above: Expected: 07/29/2024 (Approximate), Expi res: 07/29/2025 Start: 07-11-2024 End: 07-11-2025 Progesterone [Mass/volume] in Serum or Plasma Progesterone Lab Routine Fertility testing Expected: 07/11/2024 (Approximate), Expires: 07/11/2025 [facility] Work Phone: Comment on above: Expected: 07/11/2024 (Approximate), Expi res: 07/11/2025 Start: 06-23-2024 Orders Only 06/23/2024 Orders Only Valeria Hay [address] [place] [phone] Ira Lopez RN Encounter for test, result unknown Valeria Hay Comment on above: Encounter for test, result unk nown Start: 03-20-2024 End: 03-20-2025 Lutropin [Units/volume] in Serum or Plasma Luteinizing Hormone Lab STAT Female infertility Expected: 03/20/2024 (Approximate), Expires: 03/20/2025 [facility] Work Phone: Comment on above: Expected: 03/20/2024 (Approximate), Expi res: 03/20/2025 Start: 03-20-2024 End: 03-20-2025 Progesterone [Mass/volume] in Serum or Plasma Progesterone Lab STAT Female infertility Expected: 03/20/2024 (Approximate), Expires: 03/20/2025 [facility] Service Area Work Phone: Comment on above: Expected: 03/20/2024 (Approximate), Expi res: 03/20/2025 Start: 03-20-2024 End: 03-20-2024 Professional / ancillary services management 03/20/2024 8:00 AM EST Ancillary Procedure Valeria Hay [address] [place] [address] Valeria Hay Start: 03-19-2024 End: 03-19-2024 Professional / ancillary services management 03/19/2024 8:30 AM EST Ancillary Procedure TERRY Hay [address] [place] [address] [facility]eria Hay Start: 03-17-2024 End: 03-17-2025 Estradiol (E2) [Mass/volume] in Serum or Plasma Estradiol Lab STAT Female infertility Expected: 03/17/2024 (Approximate), Expires: 03/17/2025 [facility] Service Area Work Phone: Comment on above: Expected: 03/17/2024 (Approximate), Expi res: 03/17/2025 Start: 03-17-2024 End: 03-17-2025 Progesterone [Mass/volume] in Serum or Plasma [facility] Work Phone: Comment on above: Expected: 03/17/2024 (Approximate), Expi res: 03/17/2025 Start: 03-17-2024 End: 03-17-2024 Professional / ancillary services management 03/17/2024 6:45 AM EST Ancillary Procedure [facility] [address] [place] [address] [facility] Start: 03-15-2024 End: 03-15-2024 Professional / ancillary services management 03/15/2024 6:45 AM EST Ancillary Procedure TERRY [facility] [address] [place] [address] [facility] Start: 03-09-2024 End: 03-09-2024 Professional / ancillary services management 03/09/2024 7:15 AM EST Ancillary Procedure [facility] [address] [place] [address] [facility] Start: 02-23-2024 End: 02-23-2024 Patient encounter procedure 02/23/2024 8:30 AM EDT Appointment [facility] [place] [address] [place] [address] Juan Chavarria MD [address] [place], [place] [id number] [place] [address] [address] Department of Anesthesiology [place] [address] [facility] Start: 02-21-2024 End: 02-21-2024 Professional / ancillary services management 02/21/2024 8:30 AM EDT Ancillary Procedure [facility] [address] [place] [address] [facility] [place] Start: 02-20-2024 End: 02-17-2025 Estradiol (E2) [Mass/volume] in Serum or Plasma Estradiol Lab STAT Female infertility Expected: 02/20/2024 (Approximate), Expires: 02/17/2025 [facility] Service Area Work Phone: Comment on above: Expected: 02/20/2024 (Approximate), Expi res: 02/17/2025 Start: 02-20-2024 End: 02-17-2025 Progesterone [Mass/volume] in Serum or Plasma Progesterone Lab STAT Female infertility Expected: 02/20/2024 (Approximate), Expires: 02/17/2025 [facility] Work Phone: Comment on above: Expected: 02/20/2024 (Approximate), Expi res: 02/17/2025 Start: 02-20-2024 End: 02-20-2024 Professional / ancillary services management 02/20/2024 8:30 AM EDT Ancillary Procedure [facility] [address] [place] [address] [facility] Start: 02-18-2024 End: 02-18-2024 Professional / ancillary services management 02/18/2024 7:45 AM EDT Ancillary Procedure [facility] [address] [place] [address] [facility] Start: 02-16-2024 End: 02-16-2024 Professional / ancillary services management 02/16/2024 7:15 AM EDT Ancillary Procedure [facility] [place] [address] [place] [address] [facility] Start: 02-09-2024 End: 02-09-2024 Professional / ancillary services management 02/09/2024 7:15 AM EDT Ancillary Procedure [facility] [address] [place] [address] [facility] Start: 01-14-2024 End: 01-14-2024 Patient encounter procedure 01/14/2024 11:00 AM EDT Office Visit [facility] [address] [place] [address] Brandy Sheehan PA [address] [place] [address] Arrived [facility] Comment on above: Arrived Start: 01-03-2024 COVID-19 Vaccine () COVID-19 Vaccine () [facility] Start: 01-03-2024 COVID-19 Vaccine () COVID-19 Vaccine () [facility] Start: 01-03-2024 Influenza vaccination Influenza Vaccine (#1) [facility] Start: 12-25-2023 End: 12-25-2023 Telemedicine consultation with patient 12/25/2023 9:00 AM EDT Telemedicine Clinical Support [facility] [address] [place] [address] Afua Julian I, [facility] [address] [address] [facility] [place] [address] [facility] Start: 2023 End: 12-10-2024 Chlamydia trachomatis and Neisseria gonorrhoeae DNA [Identifier] in Unspecified specimen by EDELMIRA with probe detection [facility] Work Phone: Comment on above: Expected: 2023 (Approximate), Expi res: 12/10/2024 Start: 2023 End: 12-10-2024 Hepatitis B virus surface Ag [Presence] in Serum or Plasma by Immunoassay [facility] Work Phone: Comment on above: Expected: 2023 (Approximate), Expi res: 12/10/2024 Start: 2023 End: 12-10-2024 Hepatitis C virus Ab [Presence] in Serum [facility] Work Phone: Comment on above: Expected: 2023 (Approximate), Expi res: 12/10/2024 Start: 2023 End: 12-10-2024 HIV 1+2 Ab+HIV1 p24 Ag [Presence] in Serum or Plasma by Immunoassay [facility] Work Phone: Comment on above: Expected: 2023 (Approximate), Expi res: 12/10/2024 Start: 2023 End: 12-10-2024 Rubella virus IgG Ab [Units/volume] in Serum [facility] Service Area Work Phone: Comment on above: Expected: 2023 (Approximate), Expi res: 12/10/2024 Start: 2023 End: 12-10-2024 Treponema pallidum IgG+IgM Ab [Presence] in Serum by Immunoassay [facility] Work Phone: Comment on above: Expected: 2023 (Approximate), Expi res: 12/10/2024 Start: 2023 End: 12-10-2024 Varicella zoster virus IgG Ab [Presence] in Serum by Immunoassay [facility] Work Phone: Comment on above: Expected: 2023 (Approximate), Expi res: 12/10/2024 Start: 01-02-2023 COVID-19 Vaccine ( season) COVID-19 Vaccine ( season) [facility] Start: 12-21-2019 DTaP/Tdap/Td Vaccines (2 - Td or Tdap) DTaP/Tdap/Td Vaccines (2 - Td or Tdap) [facility] Start: 2018 Screening for malignant neoplasm of cervix [facility] Start: 2016 Hepatitis B Vaccines (1 of 3 - 19+ 3-dose series) Hepatitis B Vaccines (1 of 3 - 19+ 3-dose series) [facility] Start: 12-12-2015 Hepatitis C screening Hepatitis C Screening [facility] Start: 2012 HPV Vaccines (1 - 3-dose series) HPV Vaccines (1 - 3-dose series) [facility] Start: 03-14-2010 Varicella vaccination Varicella Vaccines (2 of 2 - 2-dose childhood series) [facility] Start: 01-17-2010 MMR Vaccines (1 of 1 - Standard series) MMR Vaccines (1 of 1 - Standard series) [facility] Start: 1997 HIV screening HIV Screening [facility] Start: 1997 Lipid panel Lipid Panel [facility] Start: 1997 Yearly Adult Physical Yearly Adult Physical [facility] Bacteria identified in Urine by Culture Urine culture Microbiology Routine Missed menses Ordered: 07/29/2024 [facility] Comment on above: Ordered: 07/29/2024 Bacteria identified in Urine by Culture Urine culture Microbiology Routine Leukocytes in urine Other microscopic hematuria Ordered: 12/19/2024 [facility] Work Phone: Comment on above: Ordered: 12/19/2024 CBC W Auto Different ial panel - Blood CBC and differential Lab Routine Missed menses , unspecified gestational age Ordered: 07/29/2024 [facility] Comment on above: Ordered: 07/29/2024 CHLAMYDIA TRACHOMATI S (GENITO/STI) CHLAMYDIA TRACHOMATIS (GENITO/STI) Lab Routine STD exposure Ordered: 09/06/2024 [facility] Comment on above: Ordered: 09/06/2024 End: 02-23-2024 Choriogonadotropin ( test) [Presence] in Urine POCT , urine manually resulted Point of Care Testing Routine Once (Lab) for 1 Occurrences starting 02/23/2024 until 02/23/2024 [facility] Service Area Work Phone: Comment on above: Once (Lab) for 1 Occurrences starting until 02/23/2024 End: 03-22-2024 Choriogonadotropin ( test) [Presence] in Urine POCT , urine manually resulted Point of Care Testing Routine Once (Lab) for 1 Occurrences starting 03/22/2024 until 03/22/2024 [facility] Service Area Work Phone: Comment on above: Once (Lab) for 1 Occurrences starting until 03/22/2024 End: 06-13-2024 Choriogonadotropin ( test) [Presence] in Urine POCT , urine manually resulted Point of Care Testing Routine Once (Lab) for 1 Occurrences starting 06/13/2024 until 06/13/2024 [facility] Service Area Work Phone: Comment on above: Once (Lab) for 1 Occurrences starting until 06/13/2024 Cytology Cervical or vaginal smear or scraping study Pap Smear Pathology and Cytology Routine Well woman exam with routine gynecological exam Ordered: 01/14/2024 [facility] Work Phone: Comment on above: Ordered: 01/14/2024 Hemoglobin A1c/Hemoglobin.total in Blood Hemoglobin A1c Lab Routine Missed menses , unspecified gestational age Ordered: 07/29/2024 [facility] Comment on above: Ordered: 07/29/2024 Hepatitis B virus abrams rface Ag [Presence] in Serum or Plasma by Immunoassay Hepatitis B surface antigen Lab Routine Missed menses , unspecified gestational age Ordered: 07/29/2024 [facility] Comment on above: Ordered: 07/29/2024 Hepatitis C virus Ab [Presence] in Serum or Plasma by Immunoassay Hepatitis C antibody Lab Routine Missed menses , unspecified gestational age Ordered: 07/29/2024 [facility] Comment on above: Ordered: 07/29/2024 HIV-1/HIV-2 antigen/antibody combination immunoassay HIV-1 and HIV-2 antibodies Lab Routine Missed menses , unspecified gestational age Ordered: 07/29/2024 [facility] Comment on above: Ordered: 07/29/2024 Neisseria gonorrhoea e DNA [Presence] in Unspecified specimen by EDELMIRA with probe detection Neisseria gonorrhea DNA probe, direct Lab Routine STD exposure Ordered: 09/06/2024 [facility] Comment on above: Ordered: 09/06/2024 Reagin Ab [Presence] in Serum by RPR RPR Lab Routine Missed menses , unspecified gestational age Ordered: 07/29/2024 [facility] Comment on above: Ordered: 07/29/2024 KELSY US Pelvis Limite d Follicles - Follicle Studies Performed KELSY US Pelvis Limited Follicles - Follicle Studies Performed Imaging Routine Female infertility 02/16/2024 7:17 AM EDT [facility] Service [facility] Work Phone: KELSY US Pelvis Limite d Follicles - Follicle Studies Performed KELSY US Pelvis Limited Follicles - Follicle Studies Performed Imaging Routine Female infertility 02/20/2024 9:06 AM EDT [facility] Work Phone: Rubella antibody, IgG Rubella an tibody, IgG Lab Routine Missed menses , unspecified gestational age Ordered: 07/29/2024 [facility] Comment on above: Ordered: 07/29/2024 SURESWAB(R) ADVANCED VAGINITIS PLUS, TMA SURESWAB(R) ADVANCED VAGINITIS PLUS, TMA Pathology and Cytology Routine STD exposure Ordered: 09/06/2024 [facility] Work Phone: Comment on above: Ordered: 09/06/2024 End: 01-28-2024 Surgical pathology study [facility] Work Phone: Comment on above: Once (Lab) for 1 Occurrences starting until 01/28/2024, 1 completed Once (Lab) for 1 Occ urrences starting 01/28/2024 until 01/28/2024 Immunizations Immunization Date Immunization Notes Care Provider Fa cility 12-20-2009 meningococcal ACWY vaccine, unspecified formulation Princess Rapp [facility] 12-20-2009 tetanus toxoid, reduced diphtheria toxoid, and acellular pertussis vaccine, adsorbed Princess Rapp [facility] 12-20-2009 varicella virus vaccine Princess Rapp [facility] NEGATED: Highlighted row has not occurred!04-06-2024 influenza virus vaccine, unspecified formulation Mallory Jauregui [facility] NEGATED: Highlighted row has not occurred!06-26-2021 influenza virus vaccine, unspecified formulation Leigh Ann Covington [facility] NEGATED: Highlighted row has not occurred!06-26-2021 SARS-CoV-2 (COVID-19) Ad26 vaccine, recombinant Leigh Ann Covington [facility] NEGATED: Highlighted row has not occurred!01-29-2021 influenza virus vaccine, unspecified formulation Leigh Ann Covington [facility] NEGATED: Highlighted row has not occurred!01-29-2021 SARS-CoV-2 (COVID-19) Ad26 vaccine, recombinant Leigh Ann [employer] [facility] NEGATED: Highlighted row has not occurred!05-03-2019 influenza virus vaccine, live, attenuated, for intranasal use Leigh Ann [employer] [facility] NEGATED: Highlighted row has not occurred!09-30-2018 influenza virus vaccine, unspecified formulation Leigh Ann Covington [facility] Payers Date Payer Category Payer Managed Care (Private) [id number] [id number] 2022 Private Health Insurance [employer] [id number] 2022 Unknown [id number]. 1.13.647.2. 7.3.534549.315 2022 Unknown [id number] 1997 Unknown [id number] 2.16.840.1.405683.3.579.2. 593 1997 Unknown [id number] 2.16.840.1.141020.3.579.2. 593 1997 Unknown [id number] 2.16840.1.659676.3.579.2. 727 1997 Unknown [id number] 2.16840.1.543410.3.579.2. 727 1997 Unknown [id number] 2.840.1.545033.3.579.2. 727 1997 Unknown [id number] 2.840.1.595965.3.579.2. 727 1997 Unknown [id number] 2.840.1.979853.3.579.2. 124 1997 Unknown [id number] 2.16840.1.834806.3.579.2. 124 1997 Unknown [id number] 2.16840.1.904499.3.579.2. 124 1997 Unknown [id number] 2.16840.1.750730.3.579.2. 124 1997 Unknown [id number] 2.840.1.175738.3.579.2. 124 1997 Unknown [id number] 2.16840.1.242173.3.579.2. 124 1997 Unknown [id number] 2.16840.1.193779.3.579.2. 124 1997 Unknown [id number] 2.16840.1.668466.3.579.2. 1245 1997 Unknown [id number] 2.16840.1.721541.3.579.2. 1244 1997 Unknown [id number] 2.16.840.1.302035.3.579.2. 1244 1997 Unknown [id number] 2.16.840.1.640147.3.579.2. 1244 1997 Unknown [id number] 2.840.1.734540.3.579.2. 1244 1997 Unknown [id number] 2.16840.1.261635.3.579.2. 1244 1997 Unknown [id number] 2.840.1.940486.3.579.2. 1244 1997 Unknown [id number] 2.840.1.520483.3.579.2. 1244 1997 Unknown [id number] 2.840.1.167265.3.579.2. 1244 1997 Unknown [id number] 2.840.1.497929.3.579.2. 1244 1997 Unknown [id number] 2.840.1.452506.3.579.2. 1244 1997 Unknown [id number] 2.840.1.473436.3.579.2. 1244 1997 Unknown [id number] 2840.1.228402.3.579.2. 1244 1997 Unknown [id number] 2.840.1.494044.3.579.2. 1244 1997 Unknown [id number] 2.16840.1.908900.3.579.2. 1244 1997 Unknown [id number] 2.16840.1.955874.3.579.2. 1244 1997 Unknown [id number] 2.840.1.241506.3.579.2. 1244 1997 Unknown [id number] 2.16.840.1.773261.3.579.2. 1244 1997 Unknown [id number] 2.16.840.1.881404.3.579.2. 1244 1997 Unknown [id number] 2.16.840.1.100003.3.579.2. 1244 1997 Unknown [id number] 2.16840.1.703098.3.579.2. 1244 1997 Unknown [id number] 2.16.840.1.980645.3.579.2. 1244 1997 Unknown [id number] 2.840.1.210525.3.579.2. 1244 1997 Unknown [id number] 2.840.1.909735.3.579.2. 1244 1997 Unknown [id number] 2.840.1.554436.3.579.2. 1244 1997 Unknown [id number] 2.840.1.676835.3.579.2. 1244 1997 Unknown [id number] 2.840.1.634684.3.579.2. 1244 1997 Unknown [id number] 2.840.1.868177.3.579.2. 1244 1997 Unknown [id number] 2.840.1.203134.3.579.2. 1244 1997 Unknown [id number] 2.840.1.372369.3.579.2. 1244 1997 Unknown [id number] 2.16840.1.585127.3.579.2. 1244 1997 Unknown [id number] 2.16840.1.890121.3.579.2. 1244 1997 Unknown [id number] 2.16840.1.789336.3.579.2. 12441998 Unknown [id number] 2.16.840.1.742892.3.579.2. 9 1997 Unknown [id number] 2.16.840.1.824433.3.579.2. 9 1997 Unknown [id number] 2.16.840.1.784087.3.579.2. 1258 1997 Unknown [id number] 2.16.840.1.308523.3.579.2. 9 1997 Unknown [id number] 2.16.840.1.593139.3.579.2. 1258 1997 Unknown [id number] 2.16.840.1.770418.3.579.2. 9 1997 Unknown [id number] 2.16.840.1.604368.3.579.2. 1258 1997 Unknown [id number] 2.16.840.1.521751.3.579.2. 9 1997 Unknown [id number] 2.16.840.1.909177.3.579.2. 1258 1997 Unknown [id number] 2.16.840.1.191303.3.579.2. 9 1997 Unknown [id number] 2.16.840.1.231331.3.579.2. 1258 1997 Unknown [id number] 2.16.840.1.318533.3.579.2. 1259 1959 Unknown [id number] 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 Date Type Detail Facility Start: 07-24-2021 End: 03-05-2023 Tobacco smoking status Never smoked tobacco (finding) [facility] Tobacco smoking status Never [facility] Start: 01-28-2024 End: 07-29-2024 Sex Assigned At Female [facility] Start: 2023 Tobacco use and exposure Smokeless tobacco non-user [facility] Work Phone: Start: 01-28-2024 End: 06-23-2024 Alcoholic beverage intake Ex-drinker (finding) [facility] Work Phone: Start: 01-28-2024 End: 07-29-2024 History of Social function [facility] Work Phone: Start: 2023 Alcohol Comment Occassionally [facility] Work Phone: Start: 1997 Sex assigned at Not on file [facility] Work Phone: Start: 12-01-2023 End: 10-07-2024 Exposure to SARS-CoV-2 (event) Not sure [facility] Start: 02-23-2024 End: 01-16-2025 Alcoholic beverage intake Current drinker of alcohol (finding) [facility] Work Phone: Start: 03-05-2023 Alcohol Comment Beer 1-2 times per m [facility] Start: 12-18-2023 End: 12-28-2023 Exposure to SARS-CoV-2 (event) Unable to assess [facility] Start: 06-08-2024 [facility] Procedure Code Equipment Code Equipment Origin al Text Equipment Identifier Dates [id number] Start: 03-01-2024 End: 03-09-2024 Functional Status Date Assessment Result Facility 04-06-2024 Functional Status N/A [facility] 10-02-2023 Functional Status N/A [facility] 08-27-2023 Functional Status N/A [facility] 02-19-2023 Functional Status N/A [facility] Clinical Notes 07-24-2021 to 01-16-2025 Maria M Guererro NP - 01/16/2025 2:50 PM Megan Greer [...] PLAN ICD-10-CM 1. 33 weeks gestation of ([facility]) Z3A.33 POCT urinalysis dipstick manually resulted 2. Third trimester ([facility]) Z34.93 POCT urinalysis dipstick manually resulted 3. Group B streptococcal infection A49.1 4. resulting from in vitro fertilization in first trimester ([facility]) O09.811 Return OB: Patient presents today [...] Layo Courtney DO documented in this encounter [facility] 01-03-2025 History of Present illness Narrative Reason [...] nursing note reviewed. Exam conducted with a tin can laborer present. Vitals: Estimated body mass index is 39.47 kg/m as calculated from the following: Height as of 09/17/22: 5' 3 . Weight as of this encounter: 222 lb 12.8 oz. BP: 118/74 No LMP recorded. Patient is . ASSESSMENT & PLAN ICD-10-CM 1. Third trimester ([facility]) Z34.93 POCT urinalysis dipstick manually resulted 2. 31 weeks gestation of ([facility]) Z3A.31 POCT urinalysis dipstick manually resulted Return [...] Layo Courtney DO documented in this encounter [facility] 12-19-2024 History of Present illness Narrative Reason [...] nursing note reviewed. Exam conducted with a tin can laborer present. Vitals: Estimated body mass index is 38.76 kg/m as calculated from the following: Height as of 09/17/22: 5' 3 . Weight as of this encounter: 218 lb 12.8 oz. BP: 116/70 No LMP recorded. Patient is . ASSESSMENT & PLAN ICD-10-CM 1. 29 weeks gestation of ([facility]) Z3A.29 POCT urinalysis dipstick manually resulted 2. Third trimester ([facility]) Z34.93 POCT urinalysis dipstick manually [...] Layo Courtney DO documented in this encounter [facility] 12-06-2024 History of Present illness Narrative Reason [...] PLAN ICD-10-CM 1. 27 weeks gestation of ([facility]) Z3A.27 POCT urinalysis dipstick manually resulted 2. Second trimester ([facility]) Z34.92 POCT urinalysis dipstick manually resulted Return [...] Layo Courtney DO documented in this encounter [facility] 11-08-2024 History of Present illness Narrative Reason [...] ASSESSMENT & PLAN ICD-10-CM 1. Second trimester ([facility]) Z34.92 POCT urinalysis dipstick manually resulted 2. 26 weeks gestation of ([facility]) Z3A.26 POCT urinalysis dipstick manually resulted [...] Layo Courtney DO documented in this encounter [facility] 10-17-2024 History of Present illness Narrative Reason [...] nursing note reviewed. Exam conducted with a tin can laborer present. Vitals: Estimated body mass index is 35.52 kg/m as calculated from the following: Height as of 09/17/22: 5' 3 . Weight as of this encounter: 200 lb 8 oz. BP: 126/82 No LMP recorded. Patient is . ASSESSMENT & PLAN ICD-10-CM 1. Second trimester ([facility]) Z34.92 POCT urinalysis dipstick manually resulted 2. 20 weeks gestation of ([facility]) Z3A.20 Return OB: Patient presents today for [...] Layo Courtney DO documented in this encounter [facility] 10-11-2024 History of Present illness Narrative Reason [...] Layo Courtney DO documented in this encounter [facility] 09-06-2024 History of Present illness Narrative Reason [...] of: ORION Spence documented in this encounter [facility] 08-08-2024 History of Present illness Narrative Reason [...] nursing note reviewed. Exam conducted with a tin can laborer present. Vitals: Estimated body mass index is [...] Layo Courtney DO documented in this encounter [facility] 07-29-2024 History of Present illness Narrative Reason [...] screen, urine; Future Nurse Note: Patient declined [place] [employer] to one Pt is an IVF [...] or undercooked meat, and [facility] away [facility]. Patient has also been advised to [...] Marilia Elder MA documented in this encounter [facility] 07-11-2024 History of Present illness Narrative Visit [...] 07/11/2024 3:54 PM documented in this encounter [facility] Work Phone: 06-13-2024 History of Present [...] Preop diagnosis: Infertility Post op diagnosis: Same Swing Tender: none Depth: 7 cm Curve: anterior Distance [...] 06/13/24 11:24 AM documented in this encounter [facility] Work Phone: 06-13-2024 Hospital Discharge instructions Tisha Sparks RN - 06/13/2024 10:43 AM EST Images from the original note were not included. [facility] [address] [place] [address] Home Going Instructions after Embryo Transfer: After [...] in : Advil, Motrin, Ibuprofen, Aleve, Excedrin, [place], Sudafed, and Pepto-Bismol. Avoid aspirin unless you [...] Sparks 10:43 AM documented in this encounter [facility] Work Phone: 06-06-2024 History of Present [...] further instructed. Message sent to front end developer to schedule at 8:45 slot at [facility] for US and labs. ZOE FRANCIS on 06/06/24 at 1:12 PM. documented in this encounter [facility] Work Phone: 04-06-2024 Hospital Discharge instructions [...] provider. Document Revised: 09/09/2021 Document Reviewed: 09/09/2021 [employer] Patient Education 2023 [employer] Follow Up Care 03/25/2024 14:07:23 With:Mallory Judd Address: When:Within 6 Month(s) [facility] 03-22-2024 History of Present illness Narrative Associated Order(s): Egg Retrieval Pre-Procedure Diagnose(s): Encounter for assisted reproductive fertility cycle Post-Procedure Diagnose(s): Encounter for assisted reproductive fertility cycle Patient ID: Sydney Romero is a 28 y.o. female. Egg Retrieval Date/Time: 03/22/2024 9:39 AM Performed by: Juan Chavarria MD Authorized by: Donya Abernathy APRN-LENS GRINDER Consent: Consent obtained: Verbal and written Consent [...] diagnosis: Female infertility Post op diagnosis: Same Swing Tender: Dr. Warren IV Fluids: 600 cc EBL: 5 cc UOP: Not recorded Specimen: Oocytes Complications: None Number of Oocytes right ovary: 16 Ovarian access (right): Easy Number of Oocytes left ovary: 9 Ovarian access (left): Easy Endometrial thickness: n/a Needle type: Single Additional notes: documented in this encounter [facility] Work Phone: 03-22-2024 Nurse Note Patient discharged to home in stable condition via wheelchair to RIDE HOME: Partner's car. Accompanied by RN. VSS at time of discharge. Discharge instructions given and concerns addressed. Gisell Michel RN 03/22/24 11:08 AM [facility] Work Phone: 03-22-2024 Nurse Note Patient discharged to home in stable condition via wheelchair to RIDE HOME: Partner's car. Accompanied by RN. VSS at time of discharge. Discharge instructions given and concerns addressed. Gisell Michel RN 03/22/24 11:08 AM documented in this encounter [facility] Work Phone: 03-22-2024 Hospital Discharge instructions Gisell Michel RN - 03/22/2024 8:45 AM EST Images from the original note were not included. [facility] [address]. [place] [id number] Home Going Instructions after Egg Retrieval: Activity: [...] 2 weeks following your oocyte retrieval. Call [phone] to speak with a Physician or Nurse if you have any concerns. Gisell Michel 8:45 AM [facility] [address] [place], [place] IVF LAB EMBRYO UPDATE PROTOCOL The [...] biopsied and frozen. Gisell Michel 8:44 AM [facility] [address] [place] [address] Frozen Embryo Transfer Instructions After your egg retrieval, follow up with your IVF nurse within 3-4 days Thursday-Thursday regarding the plan for your frozen embryo transfer (FET) cycle. Your IVF nurse will order and review with you the medications you will be using for the cycle. You will be sent an email from [employer] to fill out your Frozen Embryo Treatment [...] RN 8:44 AM documented in this encounter [facility] Work Phone: 03-20-2024 History of Present [...] Arrive 60 minutes prior to procedure at [place] [address]. Patient verbalizes understanding of plan and location of procedure. Patient scheduled to go to [facility] tomorrow for post trigger labs Krissy Yanes 03/20/2024 11:01 AM documented in this encounter [facility] Work Phone: 03-19-2024 History of Present [...] 03/19/24 11:02 AM documented in this encounter [facility] Work Phone: 03-17-2024 History of Present [...] 03/17/24 1:04 PM documented in this encounter [facility] Work Phone: 03-15-2024 History of Present [...] further questions. Transferred to the front end developer to schedule appt for 03/17. Allyssa Robles 03/15/24 1:27 PM documented in this encounter [facility] Work Phone: 03-09-2024 History of Present [...] Yes; PGT-M Test Ready: No ; Company: [employer] PGT order scanned into [employer], confirmed by: LORI on Plan to freeze: embryos [employer] forms/out waiver complete: Yes Does patient have medications onhand? Yes Pharmacy: Boarding pass signed off: Yes Date of Female STDs: 2023 Date of Male STDs: 2023 Medically complex on boarding pass: no If indicated, is PAT consult complete? Yes SPERM: [employer] with [employer] Back[employer] Number of vials confirmed: 1 on 03/09 by delaon On site at [facility] Additional details: Allyssa Robles 03/09/2024 7:50 AM TC to pt to confirm today's plan; LM; will send MC message. Allyssa Robles 03/09/24 2:02 PM Pt called back to confirm plan; Pt has all meds and all questions answered. She plans to purchase FET meds before the end of the year (they were ordered back in February) and will call [facility] to have them filled as she has met deductible and REECE needs a PA. Allyssa Robles 03/09/24 2:33 PM documented in this encounter [facility] Work Phone: 02-23-2024 Nurse Note Patient discharged to home in stable condition via wheelchair accompanied by this RN to RIDE HOME: Partner's car. Discharge instructions given and concerns addressed. Patient verbalizes understanding of all information provided and is agreeable. [facility] 02-23-2024 Nurse Note Patient discharged to home in stable condition via wheelchair accompanied by this RN to RIDE HOME: Partner's car. Discharge instructions given and concerns addressed. Patient verbalizes understanding of all information provided and is agreeable. Patient up to bathroom independently, no complaints of pain or dizziness, able to void without issue, reports scant amount of bleeding. documented in this encounter [facility] Work Phone: 02-23-2024 Nurse Note Patient up to bathroom independently, no complaints of pain or dizziness, able to void without issue, reports scant amount of bleeding. [facility] Work Phone: 02-23-2024 History of Present [...] diagnosis: Female infertility Post op diagnosis: Same Swing Tender: none IV Fluids: 500 cc EBL: 5 cc UOP: Not recorded Specimen: Oocytes Complications: None Number of Oocytes right ovary: 17 Ovarian acc ss (right): Easy Number of Oocytes left ovary: 13 Ovarian access (left): Easy Endometrial thickness: n/a Needle type: Single Additional notes: documented in this encounter [facility] Work Phone: 02-23-2024 Hospital Discharge instructions Donya Rosas RN - 02/23/2024 7:23 AM EDT Images from the original note were not included. [facility] [address] [place] [address] Home Going Instructions after Egg Retrieval: Activity: [...] 2 weeks following your oocyte retrieval. Call [phone] to speak with a Physician or Nurse if you have any concerns. DONYA ROSAS 7:23 AM [facility] [address] [place], [place] IVF LAB EMBRYO UPDATE PROTOCOL The [...] biopsied and frozen. DONYA ROSAS 7:23 AM [facility] [address] [place], [place] IVF LAB EMBRYO UPDATE PROTOCOL The [...] biopsied and frozen. DONYA ROSAS 7:23 AM [facility] [address] [place] [address] Frozen Embryo Transfer Instructions After your egg retrieval, follow up with your IVF nurse within 3-4 days Thursday-Thursday regarding the plan for your frozen embryo transfer (FET) cycle. Your IVF nurse will order and review with you the medications you will be using for the cycle. You will be sent an email from [employer] to fill out your Frozen Embryo Treatment [...] RN 7:32 AM documented in this encounter [facility] Work Phone: 02-21-2024 History of Present [...] 02/21/2024 9:09 AM documented in this encounter [facility] Work Phone: 02-20-2024 History of Present [...] Beth Judge RN documented in this encounter [facility] Work Phone: 02-18-2024 History of Present [...] Beth Judge RN documented in this encounter [facility] Work Phone: 02-16-2024 History of Present [...] look into getting insulin syringes from [facility]. Team will contact patient later today with results and plan. Krissy Yanes 02/16/2024 7:27 AM LM with patient with plan to start Cetrotide today, drop FSH to 225 units and continue Menopur 75 units. Patient is already scheduled for 02/17 for repeat follicle scan and e2. Krissy Yanes 02/16/24 1:34 PM documented in this encounter [facility] Work Phone: 02-09-2024 History of Present [...] Yes; PGT-M Test Ready: No /A; Company: [employer] PGT order scanned into [employer], confirmed by: OLRI on 02/09/2024 Plan to freeze: embryos [employer] forms/out waiver complete: Yes Does patient have medications onhand? Yes Pharmacy: [facility] Boarding pass signed off: Yes LORETTA on [...] 02/09/24 1:16 PM documented in this encounter [facility] Work Phone: 01-28-2024 Nurse Note Patient discharged to home in stable condition via wheelchair to RIDE HOME: Partner's car. Discharge instructions given and concerns addressed. [facility] Work Phone: 01-28-2024 Nurse Note Patient discharged to home in stable condition via wheelchair to RIDE HOME: Partner's car. Discharge instructions given and concerns addressed. documented in this encounter [facility] Work Phone: 09-26-2024 History of Present illness Narrative IVF Procedure [...] no immediate complications documented in this encounter [facility] Work Phone: 01-28-2024 Hospital Discharge instructions Ira Lopez RN - 01/28/2024 8:20 AM EDT Images from the original note were not included. [address] [place] [address] Home Going Instructions after Polypectomy: Activity: We [...] Lopez 8:20 AM documented in this encounter [facility] Work Phone: 01-14-2024 History of Present [...] nursing note reviewed. Exam conducted with a tin can laborer present. Vitals: Estimated body mass index is [...] of: ORION Spence documented in this encounter [facility] 12-28-2023 History of Present illness Narrative Visit [...] EVALUATION / TREATMENT Saw KELSY physician in [facility] Dr. 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 female who presents with Infertility TTC x 2 years PRIOR EVALUATION / TREATMENT Saw KELSY physician in [facility] Dr[facility] 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 Meyer [phone] Recommend repeat SA with 48-72 hours abstinence [...] 2023 8:52 AM documented in this encounter [facility] Work Phone: 08-09-2024 Instructions SMITH Mina - 2023 8:45 AM EDT Recommend Male Vitamins Discussed as follows: Co-Q10 200 mg daily L-Carnitine 200-500 mg daily Vitamin C 500 mg daily Recommend Consult with Dr. Meyer [phone] Recommend repeat SA with 48-72 hours abstinence Recommend Female Vitamins: vitamin Vitamin D (total of 2,000 international units daily) CoQ10 600 mg daily documented in this encounter [facility] Work Phone: 10-02-2023 Hospital Discharge instructions [...] food choices, such as grocery stores and [employer]. What are the signs or symptoms? [...] and how much exercise you get. Take owin-rlq-igbmjla and prescription medicines only as told by [...] provider. Document Revised: 11/26/2021 Document Reviewed: 11/26/2021 [employer] Patient Education 2022 [facility]. 10/02/2023 12:54:15 BMI for Adults BMI for [...] numbers. This can be done either in Serbian (U.S[place] or metric measurements. Note that charts and online BMI calculators are available to help you find your BMI quickly and easily without having to do these calculations yourself. To calculate your BMI in Serbian (U.S.) measurements: 1.Measure your weight in pounds [...] Centers for Disease Control and Prevention: www.cdc.gov [place] Heart Association: www.heart.org National Heart, Lung, and Blood [place]: www.nhlbi.nih.gov Summary Body mass index (BMI) is a number that is calculated from a person's weight and height. BMI may help estimate how much of a person's weight is composed of fat. BMI can help identify those who may be at higher risk for certain medical problems. BMI can be measured using Serbian measurements or metric measurements. BMI charts are used to identify whether you are underweight, normal weight, overweight, or obese. This information is not intended to replace advice given to you by your health care provider. Make sure you discuss any questions you have with your health care provider. Document Revised: 01/11/2020 Document Reviewed: 11/18/2019 [employer] Patient Education 2022 [employer] 10/02/2023 12:54:13 Migraine Headache Migraine Headache [...] Follow these instructions at home: Medicines Take zfnw-jsg-woppbhw and prescription medicines only as told by your health care provider. Ask your health care provider if the medicine prescribed to you: ?Requires you to avoid driving or using heavy machinery. ?Can cause constipation. You may need to take these actions to prevent or treat constipation: ?Drink enough fluid to keep your urine pale yellow. ?Take nxmb-rfp-txxdrmu or prescription medicines. ?Eat foods that are [...] provider. Document Revised: 08/12/2019 Document Reviewed: 06/02/2019 [employer] Patient Education 2022 [employer] 10/02/2023 12:54:11 Form - Headache Record [...] provider. Document Revised: 09/18/2021 Document Reviewed: 09/18/2021 [employer] Patient Education 2022 [employer] 10/02/2023 12:54:08 Eczema Eczema Eczema refers [...] these instructions at home: Take or apply akaz-imf-odluryq and prescription medicines only as told by your health care provider. Use creams or ointments to moisturize your skin. Do not use lotions. Learn what triggers or irritates your symptoms so you can avoid these things. Treat symptom flare-ups quickly. Do not scratch your skin. This can make your rash worse. Keep all follow-up visits. This is important. Where to find more information [place] Academy [employer] Dermatology: aad.org National Eczema Association: [...] provider. Document Revised: 01/28/2021 Document Reviewed: 01/28/2021 [employer] Patient Education 2022 [facility]. 10/02/2023 12:54:06 BMI for Adults BMI for [...] numbers. This can be done either in Serbian (U.S.) or metric measurements. Note that charts and online BMI calculators are available to help you find your BMI quickly and easily without having to do these calculations yourself. To calculate your BMI in Serbian (U.S.) measurements: 1.Measure your weight in pounds [...] Centers for Disease Control and Prevention: www.cdc.gov [place] Heart Association: www.heart.org National Heart, Lung, and Blood [place]: www.nhlbi.nih.gov Summary Body mass index (BMI) is a number that is calculated from a person's weight and height. BMI may help estimate how much of a person's weight is composed of fat. BMI can help identify those who may be at higher risk for certain medical problems. BMI can be measured using Serbian measurements or metric measurements. BMI charts are used to identify whether you are underweight, normal weight, overweight, or obese. This information is not intended to replace advice given to you by your health care provider. Make sure you discuss any questions you have with your health care provider. Document Revised: 01/11/2020 Document Reviewed: 11/18/2019 [employer] Patient Education 2022 [facility]. Follow Up Care 09/22/2023 13:18:17 With:Dionte MARI, TIARA Martinez, [facility] Address: [address] [place] [id number] [facility] (1) When:07/08/2023 Comments:for f/u [facility] 08-27-2023 Hospital Discharge instructions Patient [...] 1.Identify the foods that contain carbohydrates: Rice. [place]. Milk. Strawberries. 2.Calculate how many servings you [...] and snacks. Where to find more information [place] Diabetes Association: diabetes.org Centers for Disease Control [...] provider. Document Revised: 11/21/2020 Document Reviewed: 11/21/2020 [employer] Patient Education 2022 [facility]. 08/27/2023 19:11:56 Calorie Counting for Weight Loss [...] provider. Document Revised: 05/31/2020 Document Reviewed: 05/31/2020 [employer] Patient Education 2022 [facility]. 08/27/2023 19:11:54 Exercising to Lose Weight Exercising [...] your health care provider or diet and airways operations specialist (dietitian). This may include: ?Eating fewer [...] provider. Document Revised: 06/16/2021 Document Reviewed: 06/16/2021 [employer] Patient Education 2022 [facility]. 08/27/2023 19:11:53 BMI for Adults BMI for [...] numbers. This can be done either in Serbian (U.S.) or metric measurements. Note that charts and online BMI calculators are available to help you find your BMI quickly and easily without having to do these calculations yourself. To calculate your BMI in Serbian ([place].S.) measurements: 1.Measure your weight in pounds [...] Centers for Disease Control and Prevention: www.cdc.gov [place] Heart Association: www.heart.org National Heart, Lung, and Blood [place]: www.nhlbi.nih.gov Summary Body mass index (BMI) is a number that is calculated from a person's weight and height. BMI may help estimate how much of a person's weight is composed of fat. BMI can help identify those who may be at higher risk for certain medical problems. BMI can be measured using Serbian measurements or metric measurements. BMI charts are used to identify whether you are underweight, normal weight, overweight, or obese. This information is not intended to replace advice given to you by your health care provider. Make sure you discuss any questions you have with your health care provider. Document Revised: 01/11/2020 Document Reviewed: 11/18/2019 [employer] Patient Education 2022 [employer] 08/27/2023 19:11:48 Musculoskeletal Pain Musculoskeletal Pain Musculoskeletal [...] mouth or applied to the skin. Take qbtp-wdg-ujwmquf and prescription medicines only as told by [...] provider. Document Revised: 08/23/2020 Document Reviewed: 08/01/2020 [employer] Patient Education 2022 [facility]. 08/27/2023 19:05:09 Cervicogenic Headache Cervicogenic Headache In [...] includes your primary health care provider, a bottom painter, a neurologist, and a physical therapist. Follow these instructions at home: Take lqim-qpq-wzywtui and prescription medicines only as told by [...] includes your primary health care provider, a bottom painter, a neurologist, and a physical therapist. [...] provider. Document Revised: 09/18/2021 Document Reviewed: 09/18/2021 [employer] Patient Education 2022 [employer] 08/27/2023 19:05:07 Chronic Migraine Headache Chronic [...] Follow these instructions at home: Medicines Take sshg-nts-ypkopjy and prescription medicines only as told by [...] for Headache and Migraine Patients (CHAMP): headachemigraine.org Vietnamese Migraine Foundation: americanmigrainefoundation.org National Headache Foundation: headaches.org [...] provider. Document Revised: 06/06/2020 Document Reviewed: 06/06/2020 [employer] Patient Education 2022 [facility]. 08/27/2023 19:05:03 BMI for Adults BMI for [...] numbers. This can be done either in Serbian (U.S.) or metric measurements. Note that charts and online BMI calculators are available to help you find your BMI quickly and easily without having to do these calculations yourself. To calculate your BMI in Serbian (U.S.) measurements: 1.Measure your weight in pounds [...] Centers for Disease Control and Prevention: www.cdc.gov [employer] Heart Association: www.heart.org National Heart, Lung, and Blood [place]: www.nhlbi.nih.gov Summary Body mass index (BMI) is a number that is calculated from a person's weight and height. BMI may help estimate how much of a person's weight is composed of fat. BMI can help identify those who may be at higher risk for certain medical problems. BMI can be measured using Serbian measurements or metric measurements. BMI charts are used to identify whether you are underweight, normal weight, overweight, or obese. This information is not intended to replace advice given to you by your health care provider. Make sure you discuss any questions you have with your health care provider. Document Revised: 01/11/2020 Document Reviewed: 11/18/2019 [employer] Patient Education 2022 [facility]. 08/27/2023 19:05:01 Health Maintenance, Female Health Maintenance, [...] provider. Document Revised: 09/09/2021 Document Reviewed: 09/09/2021 [employer] Patient Education 2022 [facility]. Follow Up Care 08/17/2023 08:42:02 With:Princess Dumont FAM, [facility] Address: [address] [place] [address] [place] [id number]- When:Within 6 Week(s) Comments:weight loss and headaches [facility] 02-19-2023 Evaluation + Plan note Future Scheduled TestsU Protein/Creat Ratio 02/19/23HgbA1c 02/19/23Microalbumin Level Urine 02/19/23TSH With T4fr Reflex 02/19/23Vitamin D 25 Hydroxy 02/19/23CBC w/ Auto Diff 02/19/23Comprehensive Metabolic Panel 02/19/23Lipid Panel 02/19/23XR Spine Cervical 4 or 5 Views 02/19/23 [facility] 02-19-2023 Hospital Discharge instructions Patient [...] includes your primary health care provider, a bottom painter, a neurologist, and a physical therapist. Follow these instructions at home: Take dufz-xtj-ymzukuf and prescription medicines only as told by [...] includes your primary health care provider, a bottom painter, a neurologist, and a physical therapist. This information is not intended to replace advice given to you by your health care provider. Make sure you discuss any questions you have with your health care provider. Document Revised: 10/24/2021 Document Reviewed: 10/24/2021 [employer] Patient Education 2022 [facility]. 02/19/2023 08:34:09 Migraine Headache Migraine Headache A [...] Follow these instructions at home: Medicines Take hgub-pxk-znryxiv and prescription medicines only as told by your health care provider. Ask your health care provider if the medicine prescribed to you: ?Requires you to avoid driving or using heavy machinery. ?Can cause constipation. You may need to take these actions to prevent or treat constipation: ?Drink enough fluid to keep your urine pale yellow. ?Take ondl-xet-rczedxr or prescription medicines. ?Eat foods that are [...] provider. Document Revised: 08/12/2019 Document Reviewed: 06/02/2019 [employer] Patient Education 2022 [facility]. 02/19/2023 08:34:03 Form - Headache Record Form [...] provider. Document Revised: 09/18/2021 Document Reviewed: 09/18/2021 [employer] Patient Education 2022 [employer] 02/19/2023 01:02:45 General Headache Without Cause [...] help with your condition: Managing pain Take xjqu-ket-hdxdquh and prescription medicines only as told by [...] provider. Document Revised: 09/18/2021 Document Reviewed: 09/18/2021 [employer] Patient Education 2022 [facility]. 02/19/2023 01:02:42 Form - Headache Record Form [...] includes your primary health care provider, a bottom painter, a neurologist, and a physical therapist. Follow these instructions at home: Take scwu-rch-shvstqp and prescription medicines only as told by [...] includes your primary health care provider, a bottom painter, a neurologist, and a physical therapist. This information is not intended to replace advice given to you by your health care provider. Make sure you discuss any questions you have with your health care provider. Document Revised: 10/24/2021 Document Reviewed: 10/24/2021 [employer] Patient Education 2022 [facility]. 02/19/2023 01:02:35 Chronic Migraine Headache Chronic Migraine [...] Follow these instructions at home: Medicines Take zwjw-wdm-okjwrjk and prescription medicines only as told by [...] for Headache and Migraine Patients (CHAMP): headachemigraine.org Vietnamese Migraine Foundation: americanmigrainefoundation.org National Headache Foundation: headaches.org [...] Document Reviewed: 06/06/2020 [employer] Patient Education 2022 [facility]. Follow Up Care 02/17/2023 08:10:14 With:Princess Dumont FAM, MED Address: [address], [address] [employer] [address] [phone] When:Within 1 Month(s) Comments:headaches. neck pain With:Princess Dumont FAM, MED Address: [address], [address] [place] [address] [place] [address]- When:Within 1 Year(s) Comments:annual wellness, anxiety/ depression [facility] 07-24-2021 Hospital Discharge instructions Patient [...] height. This can be done either in Serbian ([place].S[place] or metric measurements. Note that charts are available to help you find your BMI quickly and easily without having to do these calculations yourself. To calculate your BMI in Serbian ([place].S.) measurements, your health care provider will: [...] medical problems. BMI can be measured using Serbian measurements or metric measurements. To interpret your [...] 12/30/2004 Document Revised: 04/02/2018 Document Reviewed: 03/03/2018 [employer] Patient Education 2020 [facility]. 07/24/2021 17:16:58 Health Maintenance, Female Health Maintenance, [...] 11/03/2011 Document Revised: 04/13/2019 Document Reviewed: 04/13/2019 [employer] Patient Education 2020 [facility]. Follow Up Care 06/26/2021 18:00:45 With:Leigh Ann Covington CNP Address: When: only if needed [facility] Evaluation + Plan note Future Appointments Appointment Date:10/03/2021 01:00:00 PM Scheduled Provider:Naya ABDI Location:[facility] Appointment Type: JOANN [facility] Evaluation + Plan note Future Appointments Appointment Date:03/25/2023 07:00:00 AM Scheduled Provider:Princess Dumont Location:[facility] Appointment Type: Open Future Scheduled TestsU Protein/Creat Ratio 02/19/23HgbA1c 02/19/23Microalbumin Level Urine 02/19/23TSH With T4fr Reflex 02/19/23Vitamin D 25 Hydroxy 02/19/23CBC w/ Auto Diff 02/19/23Comprehensive Metabolic Panel 02/19/23Lipid Panel 02/19/23XR Spine Cervical 4 or 5 Views 02/19/23 [facility] Evaluation + Plan note Future Appointments Appointment Date:10/21/2023 07:20:00 AM Scheduled Provider:Princess Dumont Location:[facility] Appointment Type:FM Open Future Scheduled TestsTSH With T4fr Reflex 02/19/23Vitamin D 25 Hydroxy 02/19/23CBC w/ Auto Diff 02/19/23Comprehensive Metabolic Panel 02/19/23Lipid Panel 02/19/23XR Spine Cervical 4 or 5 Views 02/19/23 [facility] Evaluation + Plan note Future Appointments Appointment Date:10/05/2024 07:00:00 AM Scheduled Provider:Mallory Judd Location:[facility] Appointment Type: Open [facility] Evaluation note Diagnosis Endometrial polyp Polyp of corpus uteri documented in this encounter [facility] Work Phone: Evaluation note* Diagnosis Pre-procedure lab exam Pre-procedural laboratory examination Female infertility Female infertility of unspecified origin documented in this encounter [facility] Work Phone: Evaluation note* Diagnosis Female infertility Female infertility of unspecified origin documented in this encounter [facility] Work Phone: Evaluation note* Diagnosis Female infertility Female infertility of unspecified origin documented in this encounter [facility] Work Phone: Evaluation note* Diagnosis Encounter for assisted reproductive fertility cycle Encounter for assisted reproductive fertility procedure cycle documented in this encounter [facility] Work Phone: Evaluation note* Diagnosis Female infertility Female infertility of unspecified origin Pre-procedure lab exam Pre-procedural laboratory examination documented in this encounter [facility] Work Phone: [phone] note* Diagnosis Female infertility Female infertility of unspecified origin documented in this encounter [facility] Work Phone: [phone] note* Diagnosis Female infertility Female infertility of unspecified origin documented in this encounter [facility] Work Phone: [phone] note* Diagnosis Female infertility Female infertility of unspecified origin documented in this encounter [facility] Work Phone: [phone] note* Diagnosis Encounter for assisted reproductive fertility cycle Encounter for assisted reproductive fertility procedure cycle documented in this encounter [facility] Work Phone: [phone] note* Diagnosis Encounter for assisted reproductive fertility cycle Encounter for assisted reproductive fertility procedure cycle documented in this encounter [facility] Work Phone: [phone] note* Diagnosis Well woman exam with routine gynecological exam Routine gynecological examination documented in this encounter [facility]* Diagnosis Encounter for screening for other viral diseases- Primary Encounter for Rh blood typing Encounter for blood typing Screening for STDs (sexually transmitted diseases) Screening examination for venereal disease Genetic screening Other genetic screening Fertility testing Female infertility associated with male factors Female infertility of other specified origin documented in this encounter [facility] Work Phone: [phone] note* Diagnosis Fertility testing [Z31.41]- Primary Fertility testing 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 [Z31.81, N97.8] documented in this encounter [facility] Work Phone: [phone] note* Diagnosis Endometrial polyp Polyp of corpus uteri documented in this encounter [facility] Work Phone: [phone] note* Diagnosis Female infertility Female infertility of unspecified origin documented in this encounter [facility] Work Phone: [phone] note* Diagnosis Encounter for assisted reproductive fertility cycle Encounter for assisted reproductive fertility procedure cycle documented in this encounter [facility] Work Phone: [phone] note* Diagnosis Encounter for assisted reproductive fertility cycle Encounter for assisted reproductive fertility procedure cycle Encounter for test, result unknown documented in this encounter [facility] Work Phone: Evaluation note* Diagnosis Encounter to determine viability of , single or unspecified fetus documented in this encounter [facility] Work Phone: Evaluation note* Diagnosis Missed [...] note* Diagnosis (HHS-HCC) documented in this encounter [facility] Work Phone: Evaluation note* Diagnosis Second [...] from in vitro fertilization in first trimester (HHS-HCC) [facility] Narrative No data available for this section [facility] Hospital Discharge instructions No data available for this section [facility] Progress note No data available for this section [facility] Reason for referral (narrative)* Consultation (Routine) - Authorized Specialty Diagnoses / Procedures Referred By Contac t Referred To Contact Genetics Diagnoses Genetic screening Trish Thorpe, PERSONNEL ASSISTANT-LENS GRINDER [address] [place] [address] Referral ID Status Reason Start Date Expiration Date Visits Requested Visits Authorized [id number] Authorized Specialty Services Required 2023 12/10/2024 1 1 [facility] Work Phone: Retnjs for visit Narrative* Imaging (Routine) - Authorized Specialty Diagnoses / Procedures Referred By Contac t Referred To Contact Radiology Diagnoses Female infertility Procedures KELSY US Pelvis Limited Follicles - Follicle Studies Performed America Quintanilla APRN-LENS GRINDER [address] [place] [address] Phone: tel: fax: Referral ID Status Reason Start Date Expiration Date Visits Requested Visits Authorized [id number] Authorized Perform Procedure 02/02/2024 02/01/2025 8 8 [facility] Work Phone: Rejjnw for visit Narrative* Imaging (Routine) - Pending Review Specialty Diagnoses / Procedures Referred By Contac t Referred To Contact Radiology Diagnoses Female infertility Procedures KELSY US Pelvis Limited Follicles - Follicle Studies Performed America Quintanilla PERSONNEL ASSISTANT-LENS GRINDER [address] [place] [address] Phone: tel: fax: Referral ID Status Reason Start Date Expiration Date Visits Requested Visits Authorized [id number] Pending Review Perform Procedure 02/02/2024 02/01/2025 8 8 [facility] Work Phone: reason for visit Narrative* Procedure (Routine) - Authorized Specialty Diagnoses / Procedures Referred By Contac t Referred To Contact Reproductive Endocrinology and Infertility Diagnoses Encounter for assisted reproductive fertility cycle Procedures Egg Retrieval TX FOLLICLE PUNCTURE OOCYTE RETRIEVAL ANY METHOD CHG US GUIDANCE ASPIRATION OVA IMG S&I CHG OOCYTE ID FROM FOLLICULAR FLU CHG BX OOCYTE POLR BDY/AMBER BLST MICROTQ <= 5 AMBER CHG BX OOCYTE MICROTQ >5 AMBER CHG UNLISTED MOLECULAR PATHOLOGY PROCEDURE CHG CYTOGENETICS&MOLEC CYTOGENETICS INTERP&REP Beth Warren MD [address] [place] [address] Phone: tel: fax: Referral ID Status Reason Start Date Expiration Date V isits Requested Visits Authorized [id number] Authorized 01/27/2024 01/26/2025 1 1 [facility] Work Phone: reason for visit Narrative* Imaging (Routine) - Authorized Specialty Diagnoses / Procedures Referred By Contac t Referred To Contact Radiology Diagnoses Female infertility Procedures KELSY US Pelvis Limited Follicles - Follicle Studies Performed Donya Abernathy, PERSONNEL ASSISTANT-LENS GRINDER [address] [facility], [address], [place] [address] Phone: tel: fax: Referral ID Status Reason Start Date Expiration Date Visits Requested Visits Authorized [id number] Authorized Perform Procedure 03/01/2025 8 8 [facility] Work Phone: reason for visit Narrative* Procedure (Routine) - Authorized Specialty Diagnoses / Procedures Referred By Contac t Referred To Contact Reproductive Endocrinology and Infertility Diagnoses Encounter for assisted reproductive fertility cycle Procedures Egg Retrieval TX FOLLICLE PUNCTURE OOCYTE RETRIEVAL ANY METHOD CHG US GUIDANCE ASPIRATION OVA IMG S&I CHG OOCYTE ID FROM FOLLICULAR FLU CHG BX OOCYTE POLR BDY/AMBER BLST MICROTQ <= 5 AMBER CHG BX OOCYTE MICROTQ >5 AMBER CHG UNLISTED MOLECULAR PATHOLOGY PROCEDURE CHG CYTOGENETICS&MOLEC CYTOGENETICS INTERP&REP Donya Abernathy, PERSONNEL ASSISTANT-LENS GRINDER [address] [facility], [address], [facility] [address] [place] [address] Phone: tel: fax: Referral ID Status Reason Start Date Expiration Date V isits Requested Visits Authorized [id number] Authorized 03/01/2024 03/01/2025 1 0 [facility] Work Phone: Reaher for visit Narrative* Imaging (Routine) - Authorized Specialty Diagnoses / Procedures Referred By Alejandro t Referred To Contact Radiology Diagnoses Female infertility Procedures KELSY US Endometrial Lining Check Donya Abernathy, PERSONNEL ASSISTANT-LENS GRINDER [address] [facility], [address], [place] [id number] Phone: tel: fax: Referral ID Status Reason Start Date Expiration Date Visits Requested Visits Authorized [id number] Authorized Perform Procedure 02/23/2025 5 5 [facility] Work Phone: Rebypc for visit Narrative* Procedure (Routine) - Authorized Specialty Diagnoses / Procedures Referred By Alejandro hyatt Referred To Contact Reproductive Endocrinology and Infertility Diagnoses Encounter for assisted reproductive fertility cycle Procedures Embryo Transfer TX EMBRYO TRANSFER INTRAUTERINE CHG ULTRASONIC GUIDANCE INTRAOPERATIVE CHG THAWING CRYOPRESERVED EMBRYO CHG ASSTD EMBRYO HATCHING MICROTQS ANY METH CHG PREPJ EMBRYO TR Juan [facility]avarria MD [address] [facility] [place], [address] [address] Phone: tel: fax: Referral ID Status Reason Start Date Expiration Date V isits Requested Visits Authorized [id number] Authorized 06/10/2024 06/10/2025 1 1 [facility] Work Phone: reason for visit Narrative* Imaging (Routine) - Authorized Specialty Diagnoses / Procedures Referred By Alejandro hyatt Referred To Contact Radiology Diagnoses ([facility]) Procedures US OB detail anatomy Layo Courtney, [address] [facility] [address], [place] [address] Phone: tel: fax: Referral ID Status Reason Start Date Expiration Date Visits Requested Visits Authorized [id number] Authorized Perform Procedure 08/15/2024 08/15/2025 1 1 [facility] Work Phone: Summary Purpose Family History [...] Procedures Polypectomy Juan Chavarria MD [address] [facility] [address], [facility] [address] [place] [address] [address] [place] [address] Referral ID Status Reason Start Date Expiration Date V isits Requested Visits Authorized [id number] Authorized 01/25/2024 01/24/2025 1 1 Additional Source Comments INFORMATION SOURCE (unrecogn ized section and content) DATE CREATED AUTHOR 08/01/2022 [facility] DATE CREATED AUTHOR AUTHOR'S ORGANIZ ATION 04/04/2024 [facility] DATE CREATED AUTHOR AUTHOR'S ORGANIZ ATION 06/15/[address] [facility] DATE CREATED AUTHOR AUTHOR'S ORGANIZ ATION 07/02/2024 [facility] DATE CREATED AUTHOR AUTHOR'S ORGANIZ ATION 07/14/2024 [facility] DATE CREATED AUTHOR AUTHOR'S ORGANIZ ATION 10/11/2024 [facility] DATE CREATED AUTHOR AUTHOR'S ORGANIZ ATION 01/17/2025 [facility] Special[facility] EPIC Patient Care team informatio n (unrecognized section and content) Retail Merchandising Coordinator Relationship Specialty Start Date End Date Allyssa Robles, MISHEL Registered Nurse Reproductive Endocrinology and Infertility 12/25/23 Retail Merchandising Coordinator Relationship Specialty Start Date End Date Allyssa Robles RN Registered Nurse Reproductive Endocrinology and Infertility 12/25/23 Retail Merchandising Coordinator Relationship Specialty Start Date End Date Allyssa Robles RN Registered Nurse Reproductive Endocrinology and Infertility 12/25/23 Retail Merchandising Coordinator Relationship Specialty Start Date End Date Allyssa Robles RN Registered Nurse Reproductive Endocrinology and Infertility 12/25/23 Retail Merchandising Coordinator Relationship Specialty Start Date End Date Allyssa Robles RN Registered Nurse Reproductive Endocrinology and Infertility 12/25/23 Retail Merchandising Coordinator Relationship Specialty Start Date End Date Allyssa Robles RN Registered Nurse Reproductive Endocrinology and Infertility 12/25/23 Retail Merchandising Coordinator Relationship Specialty Start Date End Date Allyssa Robles RN Registered Nurse Reproductive Endocrinology and Infertility 12/25/23 Retail Merchandising Coordinator Relationship Specialty Start Date End Date Allyssa Robles RN Registered Nurse Reproductive Endocrinology and Infertility 12/25/23 Retail Merchandising Coordinator Relationship Specialty Start Date End Date Allyssa Robles RN Registered Nurse Reproductive Endocrinology and Infertility 12/25/23 Retail Merchandising Coordinator Relationship Specialty Start Date End Date Ginger Torres LPN Licensed Practical Nurse 12/10/23 Retail Merchandising Coordinator Relationship Specialty Start Date End Date Allyssa Robles RN Registered Nurse Reproductive Endocrinology and Infertility 12/25/23 Retail Merchandising Coordinator Relationship Specialty Start Date End Date Allyssa Robles RN Registered Nurse Reproductive Endocrinology and Infertility 12/25/23 Retail Merchandising Coordinator Relationship Specialty Start Date End Date Allyssa Robles RN Registered Nurse Reproductive Endocrinology and Infertility 12/25/23 Retail Merchandising Coordinator Relationship Specialty Start Date End Date Allyssa Robles RN Registered Nurse Reproductive Endocrinology and Infertility 12/25/23 Retail Merchandising Coordinator Relationship Specialty Start Date End Date Allyssa Robles RN Registered Nurse Reproductive Endocrinology and Infertility 12/25/23 Reason for Visit (unrecogniz ed section and content) Specialty Diagnoses / Procedures Referred By Alejandro t Referred To Contact Diagnoses Endometrial polyp Procedures Polypectomy Juan Chavarria MD [address] [place] [address] Referral ID Status Reason Start Date Expiration Date V isits Requested Visits Authorized [id number] Authorized 01/25/2024 01/24/2025 1 1 Specialty Diagnoses / Procedures Referred By Alejandro hyatt Referred To Contact Radiology Diagnoses Female infertility Procedures KELSY US Pelvis Limited Follicles - Follicle Studies Performed America Quintanilla, PERSONNEL ASSISTANT-LENS GRINDER [address] [place] [id number] Referral ID Status Reason Start Date Expiration Date Visits Requested Visits Authorized [id number] Authorized Perform Procedure 02/02/2024 02/01/2025 8 8 [...] BE BASED ON THE PRIMARY CLINICAL RECORDS. [facility] [employer] provides no warranty or guarantee of the accuracy or completeness of information in this document.
== END 2025-01-27 16:30 | disposition home or self-care (01) ==
LOC: FBCO 16:05 → FBC 16:06
PROVIDERS: Visit Provider Obstetrics & Gynecology
DX: O26.893 Other specified pregnancy related conditions, third trimester (principal)
CPT/HCPCS: 59025

== ENCOUNTER 2025-01-31 14:54 | Outpatient (OUT) | payer OTHER, SELFPAY ==
[2025-01-31 15:00] VITALS: BP 110/69; PULSE 96
--- NOTE | 2025-01-31 15:21 | US_ITS ---
[facility] [place] [id number] Patient Name: OLENA ROMERO MRN: [id number] date: 1995 Sex: F Assigned Patient Location: Current Patient Location: LAB Accession/Order Number: [id number] Exam Date: 01/31/2025 15:22 Report Date: 02/01/2025 09:21 At the request of: RULA SMITH DO Procedure: US OB BPP w non-stress CLINICAL DATA: resulting from IVF ULTRASOUND OB GROWTH COMPARISON: None There is a single live intrauterine gestation in cephalic presentation. There is cardiac and somatic activity with heart rate of 129 bpm. The amniotic fluid index measures 11.6 cm which is in low-normal range. There is an anterior placenta. The following measurements were obtained: Right parietal diameter 9.2 cm 37 weeks 2 days 89% Head circumference 33.6 cm 38 weeks 3 days 81% Abdominal circumference 32.8 cm 36 weeks 5 days 82% Femur length 7.2 cm 36 weeks 6 days 72% The composite ultrasound age based on these measurements is 37 weeks 0 days +/- 1 week 0 days. The estimated date of delivery is 02/21/2025. weight is estimated at 6 lbs. 13 oz. +/- 1 lb. 0 oz. (81%). US/US OB BPP w non-stress IMPRESSION: SINGLE LIVE INTRAUTERINE GESTATION WITH ULTRASOUND AGE OF 37 WEEKS 0 DAYS. BIOPHYSICAL PROFILE: COMPARISON: 01/25/2025 FINDINGS: TONE: 1 or more episodes of activity extension and flexion of extremity or opening and closing of the hand [Y] 2/2 GROSS BODY MOVEMENTS: 3 or more discrete body or limb movements [Y] 2/2 BREATHING MOVEMENTS: 1 or more episodes of breathing lasting at least 30 seconds [Y] 2/2 LONNY: A single deepest vertical pocket of amniotic fluid greater than 2 cm [Y] 2/2 LONNY: 11.6 cm Total score: 8/8 IMPRESSION: NORMAL BIOPHYSICAL PROFILE Impression dictated by: Mariela Toledo M.D. 02/01/2025 9:21 AM Dictation Location: [place] [address] Electronically authenticated by: [id number] Y Date: 02/01/2025 09:21
--- NOTE | 2025-01-31 15:22 | US_ITS ---
[address] [address] Patient Name: OLENA ROMERO MRN: [id number] date: 1995 Sex: F Assigned Patient Location: [facility] Current Patient Location: LAB Accession/Order Number: [id number] Exam Date: 01/31/2025 15:22 Report Date: 02/01/2025 09:21 At the request of: RULA SMIHT DO Procedure: US OB BPP w non-stress CLINICAL DATA: resulting from IVF ULTRASOUND OB GROWTH COMPARISON: None There is a single live intrauterine gestation in cephalic presentation. There is cardiac and somatic activity with heart rate of 129 bpm. The amniotic fluid index measures 11.6 cm which is in low-normal range. There is an anterior placenta. The following measurements were obtained: Right parietal diameter 9.2 cm 37 weeks 2 days 89% Head circumference 33.6 cm 38 weeks 3 days 81% Abdominal circumference 32.8 cm 36 weeks 5 days 82% Femur length 7.2 cm 36 weeks 6 days 72% The composite ultrasound age based on these measurements is 37 weeks 0 days +/- 1 week 0 days. The estimated date of delivery is 02/21/2025. weight is estimated at 6 lbs. 13 oz. +/- 1 lb. 0 oz. (81%). US/US OB growth IMPRESSION: SINGLE LIVE INTRAUTERINE GESTATION WITH ULTRASOUND AGE OF 37 WEEKS 0 DAYS. BIOPHYSICAL PROFILE: COMPARISON: 01/25/2025 FINDINGS: TONE: 1 or more episodes of activity extension and flexion of extremity or opening and closing of the hand [Y] 2/2 GROSS BODY MOVEMENTS: 3 or more discrete body or limb movements [Y] 2/2 BREATHING MOVEMENTS: 1 or more episodes of breathing lasting at least 30 seconds [Y] 2/2 LONNY: A single deepest vertical pocket of amniotic fluid greater than 2 cm [Y] 2/2 LONNY: 11.6 cm Total score: 8/8 IMPRESSION: NORMAL BIOPHYSICAL PROFILE Impression dictated by: Mariela Toledo M.D. 02/01/2025 9:21 AM Dictation Location: [place] [address] Electronically authenticated by: [id number] Y Date: 02/01/2025 09:21
== END 2025-01-31 15:45 | disposition home or self-care (01) ==
LOC: US 14:54 → FBC 14:57
PROVIDERS: Visit Provider Obstetrics & Gynecology
DX: Z31.83 Encounter for assisted reproductive fertility procedure cycle (principal); Z3A.37 37 weeks gestation of pregnancy
CPT/HCPCS: 76816; 76818; 87081

== ENCOUNTER 2025-01-31 21:04 | Outpatient (REF) | payer OTHER, SELFPAY ==
--- OUTSIDE RECORDS SUMMARY | 2025-01-31 13:50 | XMS_ITS | Encounter Summary ---
Author Organization [facility] Address [address] [place] [address] Care Team Providers Care Manager Learning Name Role Phone Unavailable Primary Care Provider Unavailabl e Encounter Details Date Type Department Care Team (Latest Contact Info) Description 01/31/2025 1:50 PM EDT Routine [facility] [address] [place] [address] Maria M Guerrero, THEATRE MANAGER [address] [place] [address] Third trimester ([facility]); 35 weeks gestation of ([facility]); Encounter for in vitro fertilization Social [...] nursing note reviewed. Exam conducted with a cooper apprentice present. Vitals: Estimated body mass index is 40.57 kg/m?? as calculated from the following: Height as of 09/17/22: 5' 3 . Weight as of this encounter: 229 lb. BP: 122/76 No LMP recorded. Patient is . ASSESSMENT & PLAN ICD-10-CM 1. Third trimester ([facility]) Z34.93 CULTURE, GROUP B STREP WITH SUSCEPTIBLITY CULTURE, GROUP B STREP WITH SUSCEPTIBLITY CANCELED: CULTURE, GROUP B STREP WITH SUSCEPTIBLITY 2. 35 weeks gestation of ([facility]) Z3A.35 POCT urinalysis dipstick manually resulted [...] Care Team (Late st Contact Info) Description 02/07/2025 1:40 PM EDT Routine [facility] [address] [place] [address] Maria M Guerrero NP [address] [place] [address] Scheduled Orders Name Type Priority Associated Diagnoses Orde r Schedule CULTURE, GROUP B STREP WITH SUSCEPTIBLITY Lab Routine Third trimester ([facility]) Expected: 01/31/2025, Expires: 01/31/2026 US OB follow up transabdominal approach Imaging Routine Encounter for in vitro fertilization Expected: 01/31/2025, Expires: 06/02/2025 documented as of this encounter Procedures Procedure Name Priority Date/Time Associated Diagnosis Comments POCT URINALYSIS DIPSTICK Routine 01/31/2025 2:25 PM EDT 35 weeks gestation of ([facility]) documented in this encounter Results * [...] this encounter Visit Diagnoses Diagnosis Third trimester ([facility]) state, incidental 35 weeks gestation of ([facility]) Encounter for in vitro fertilization Encounter for assisted reproductive fertility procedure cycle documented in this encounter
--- OUTSIDE RECORDS SUMMARY | 2025-01-31 13:57 | XMS_ITS ---
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 devices, such as e-cigarettes. If you need help quitting, ask your health care provider. ??? Do not use street drugs. ??? Do not share needles. ??? Ask your health care provider for help if you need support or information about quitting drugs. General instructions ??? Schedule regular health, dental, and eye exams. ??? Stay current with your vaccines. ??? Tell your health care provider if: ? You often feel depressed. ? You have ever been abused or do not feel safe at home. Summary ??? Adopting a healthy lifestyle and getting preventive care are important in promoting health and wellness. ??? Follow your health care provider's instructions about healthy diet, exercising, and getting tested or screened for diseases. ??? Follow your health care provider's instructions on monitoring your cholesterol and blood pressure. This information is not intended to replace advice given to you by your health care provider. Make sure you discuss any questions you have with your health care provider. Document Revised: 09/09/2021 Document Reviewed: 09/09/2021 Pili Pop Patient Education ? 2023 [employer]. AMBULATORY VISIT SUMMARY Observed: 04/06 2:53 PM Status: F Source: [facility] Ambulatory Visit Summary CHINA ROMEROIrene Del Real :1995 Visit Date:04/06/2024 Ambulatory Visit Instructions Your Diagnosis Encounter to establish care with new doctor Frequent headaches Hx of anxiety disorder GERD (gastroesophageal reflux disease) BMI 29.0-29.9,adult Over weight Your Care Team Attending Physician - Mallory Judd Primary Care Physician - Mallory Judd This Is Your Medications List Contact prescribing physician if questions or concerns clobetasol topical (clobetasol propionate 0.05% top oint) ibuprofen (ibuprofen 600 mg Tab) Procedures Performed Right Knee Arthroscopy with Medial Meniscal Repair (11/15/2015), right knee anterior cruciate ligament allograft reconstruction with [id number]-[id number]-soor, debridment medial meniscus tear, patellofemoral chondroplasty-Grade I-II (07/28/2013), Tonsillectomy, tubes in the ears. Discharge Vitals Heart Rate (Peripheral) 80 Blood Pressure 108/74 Height 162 cm Height 64 in Weight 78.5 kg Weight 173.063 lb BMI 29.91 What to do next Scheduled Follow-Up Appointments Thursday 7:00 AM EDT With: Mallory Judd Where: [facility] [address] [place] [address], [address] [place] [address]- Medications What How Much When Why Instructions Unchanged clobetasol topical (clobetasol propionate 0.05% top oint) 1 Application Topical 2 times a day Apply a thin film to affected area. Do not use to face, armpits, groin. Contact prescribing physician if questions or concerns Unchanged ibuprofen (ibuprofen 600 mg Tab) 1 Tablets By Mouth Every 8 hours as needed for Pain 4-7 Frequent headaches Neck pain Contact prescribing physician if questions or concerns Medications and Immunizations Administered Not Given influenza virus vaccine, inactivated, Patient Refuses Allergies Latex (Itching) Nickel (Itching) Zithromax (Unknown) Problems Ongoing - Any problem that you are currently receiving treatment for. Anxiety BMI 29.0-29.9,adult Dermatitis Encounter for weight management Encounter to establish care with new doctor Family history of polycystic kidney Fatigue Frequent headaches GERD (gastroesophageal reflux disease) Heavy menstrual bleeding Increased frequency of headaches Increased severity of headaches Neck pain Over weight Verruca vulgaris Weight gain Historical - Any problem that you are no longer receiving treatment for. BMI 31.0-31.9,adult Contraception management Injury of dental structures over heated Patient Survey You may receive a survey via text or e-mail asking about your office visit. Please share your experience with us by completing your survey. We appreciate your feedback and thank you for choosing us for your care. PROGESTERONE Collected: 4 6:39 AM Status: F Source: [facility] Order Comment: REF VALUES Male <0.2-0.8 Follicular Phase <0.2-1.5 Luteal Phase 7.4-15.4 Post Menopausal <0.2-0.2 1ST Trimester 12.0-84.0 2ND Trimester 10.2-58.8 3RD Trimester 46.5-160 Progesterone is performed using the [employer] Access Immunoassay. Progesterone testing is performed using a different test methodology at [facility] than other [facility]. Direct result comparison should only be made within the same method. TYPE CODE TESTS RESULT OUT OF RANGE REFERENCE UNITS LAB 2839-9(LOINC) Progesterone 4.5 ng/mL Performed By: #### 2839-9 ## ## JOSEPH ESQUIVEL ([id number]) [facility] ([facility]) [address] [place] [address] LUTROPIN Collected: 4 6:39 AM Status: F Source: [facility] TYPE CODE TESTS RESULT OUT OF RANGE REFERENCE UNITS LAB 19671-8(LOINC) Lutropin 29.3 IU/L Result Comment: LH Reference Values Follicular Phase 1.5-10.0 Mid-Cycle 13.0-72.0 Luteal Phase 0.5-13.0 Menopause 15.0-65.0 Pre-puberty 0- 3.0 Children 0- 6.0 Adult Male 1.0- 9.0 Luteinizing Hormone is performed using the [employer] Access Immunoassay. LH testing is performed using a different test methodology at [facility] than other [facility]. Direct result comparison should only be made within the same method. Performed By: #### 05006-8 # ### JOSEPH ESQUIVEL ([id number]) [facility] ([facility]) [address] [place] [address] PROGESTERONE Collected: 4 7:56 AM Status: F Source: [facility] Order Comment: REF VALUES Male <0.2-0.8 Follicular Phase <0.2-1.5 Luteal Phase 7.4-15.4 Post Menopausal <0.2-0.2 1ST Trimester 12.0-84.0 2ND Trimester 10.2-58.8 3RD Trimester 46.5-160 Progesterone is performed using the [employer] Access Immunoassay. Progesterone testing is performed using a different test methodology at [facility] than other [facility]. Direct result comparison should only be made within the same method. TYPE CODE TESTS RESULT OUT OF RANGE REFERENCE UNITS LAB 2839-9(LOINC) Progesterone 1.3 ng/mL Performed By: #### 2839-9 ## ## ORA MOHAN ([id number]) [facility] ([facility] [address] [id number] ESTRADIOL Collected: 7:56 AM Status: F Source: [facility] Order Comment: REF VALUES FOLLICULAR PHASE 20-144 MID CYCLE 64-357 LUTEAL PHASE 56-214 POSTMENOPAUSE < 32 PREPUBERTY < 20 FEMALE 10-18Y 8-110 MALE 10-18Y < 20 ADULT MALE < 40 Estradiol measurement is performed using the [employer] Access Estradiol Immunoassay. Estradiol testing is performed using a different test methodology at [facility] than other [facility]. Direct result comparison should only be made within the same method. TYPE CODE TESTS RESULT OUT OF RANGE REFERENCE UNITS LAB 2243-4(LOINC) Estradiol 4909 pg/mL Performed By: #### 2243-4 ## ## ORA MOHAN ([id number]) [facility] ([facility]) [address] [place], [place] [id number] KELSY US PELVIS LIMITED FOLLICLES-FOLLICLE STUDIES PERFORMED Observed: 03/20/2024 7:55 AM Status: F Source: [facility] Follicle scan performed with follicle measurements in report. PROGESTERONE Collected: 9:01 AM Status: F Source: [facility] Order Comment: REF VALUES Male <0.2-0.8 Follicular Phase <0.2-1.5 Luteal Phase 7.4-15.4 Post Menopausal <0.2-0.2 1ST Trimester 12.0-84.0 2ND Trimester 10.2-58.8 3RD Trimester 46.5-160 Progesterone is performed using the [employer] Access Immunoassay. Progesterone testing is performed using a different test methodology at [facility] than other [facility]. Direct result comparison should only be made within the same method. TYPE CODE TESTS RESULT OUT OF RANGE REFERENCE UNITS LAB 2839-9(LOINC) Progesterone 1.1 ng/mL Performed By: #### 2839-9 ## ## ORA MOHAN ([id number]) [facility] ([facility] [address] [place] [address] ESTRADIOL Collected: 9:01 AM Status: F Source: [facility] Order Comment: REF VALUES FOLLICULAR PHASE 20-144 MID CYCLE 64-357 LUTEAL PHASE 56-214 POSTMENOPAUSE < 32 PREPUBERTY < 20 FEMALE 10-18Y 8-110 MALE 10-18Y < 20 ADULT MALE < 40 Estradiol measurement is performed using the [employer] Access Estradiol Immunoassay. Estradiol testing is performed using a different test methodology at [facility] than other [facility]. Direct result comparison should only be made within the same method. TYPE CODE TESTS RESULT OUT OF RANGE REFERENCE UNITS LAB 2243-4(LOINC) Estradiol 3760 pg/mL Performed By: #### 2243-4 ## ## ORA MOHAN ([id number]) [facility] ([facility]) [address] [place] [address] KELSY US PELVIS LIMITED FOLLICLES-FOLLICLE STUDIES PERFORMED Observed: 03/19/2024 8:17 AM Status: F Source: [facility] Follicle scan performed with follicle measurements in report. ESTRADIOL Collected: 6:56 AM Status: F Source: [facility] Order Comment: REF VALUES FOLLICULAR PHASE 20-144 MID CYCLE 64-357 LUTEAL PHASE 56-214 POSTMENOPAUSE < 32 PREPUBERTY < 20 FEMALE 10-18Y 8-110 MALE 10-18Y < 20 ADULT MALE < 40 Estradiol measurement is performed using the [employer] Access Estradiol Immunoassay. Estradiol testing is performed using a different test methodology at [facility] than other [facility]. Direct result comparison should only be made within the same method. TYPE CODE TESTS RESULT OUT OF RANGE REFERENCE UNITS LAB 2243-4(LOINC) Estradiol 1462 pg/mL Performed By: #### 2243-4 ## ## ORA MOHAN ([id number]) [facility] ([facility]) [address] [place] [address] PROGESTERONE Collected: 6:56 AM Status: F Source: [facility] Order Comment: REF VALUES Male <0.2-0.8 Follicular Phase <0.2-1.5 Luteal Phase 7.4-15.4 Post Menopausal <0.2-0.2 1ST Trimester 12.0-84.0 2ND Trimester 10.2-58.8 3RD Trimester 46.5-160 Progesterone is performed using the [employer] Access Immunoassay. Progesterone testing is performed using a different test methodology at [facility] than other [facility]. Direct result comparison should only be made within the same method. TYPE CODE TESTS RESULT OUT OF RANGE REFERENCE UNITS LAB 2839-9(LOINC) Progesterone 0.6 ng/mL Performed By: #### 2839-9 ## ## ORA MOHAN ([id number]) [facility] ([facility]) [address] [id number] KELSY US PELVIS LIMITED FOLLICLES-FOLLICLE STUDIES PERFORMED Observed: 03/17/2024 6:42 AM Status: F Source: [facility] Follicle scan performed with follicle measurements in report. Trilaminar appearance to the endometrium is noted. Physiologic free fluid is noted in the cul de sac. Notably retroverted uterus. Two small complex ovarian cysts noted, one on the left and one on the right. ESTRADIOL Collected: 6:51 AM Status: F Source: [facility] Order Comment: REF VALUES FOLLICULAR PHASE 20-144 MID CYCLE 64-357 LUTEAL PHASE 56-214 POSTMENOPAUSE < 32 PREPUBERTY < 20 FEMALE 10-18Y 8-110 MALE 10-18Y < 20 ADULT MALE < 40 Estradiol measurement is performed using the [employer] Access Estradiol Immunoassay. Estradiol testing is performed using a different test methodology at [facility] than other [facility]. Direct result comparison should only be made within the same method. TYPE CODE TESTS RESULT OUT OF RANGE REFERENCE UNITS LAB 2243-4(LOINC) Estradiol 721 pg/mL Performed By: #### 2243-4 ## ## ORA MOHAN ([id number]) [facility] ([facility] [address] [place] [address] KELSY US PELVIS LIMITED FOLLICLES-FOLLICLE STUDIES PERFORMED Observed: 03/15/2024 6:48 AM Status: F Source: [facility] Follicle scan performed with follicle measurements in report., Trilaminar appearance to the endometrium is noted., and Free fluid is noted in the cul de sac. HEMATOCRIT Collected: 4 7:26 AM Status: F Source: [facility] TYPE CODE TESTS RESULT OUT OF RANGE REFERENCE UNITS LAB 4544-3(LOINC) Hematocrit 43.2 36.0-46.0 % Performed By: #### 4544-3 ## ## ORA MOHAN ([id number]) [facility] ([facility]) [address] [place] [address] ESTRADIOL Collected: 7:26 AM Status: F Source: [facility] Order Comment: REF VALUES FOLLICULAR PHASE 20-144 MID CYCLE 64-357 LUTEAL PHASE 56-214 POSTMENOPAUSE < 32 PREPUBERTY < 20 FEMALE 10-18Y 8-110 MALE 10-18Y < 20 ADULT MALE < 40 Estradiol measurement is performed using the [employer] Access Estradiol Immunoassay. Estradiol testing is performed using a different test methodology at [facility] than other [facility]. Direct result comparison should only be made within the same method. TYPE CODE TESTS RESULT OUT OF RANGE REFERENCE UNITS LAB 2243-4(LOINC) Estradiol <20 pg/mL Performed By: #### 2243-4 ## ## ORA MOHAN ([id number]) [facility] ([facility] [address] [place], [place] [id number] KELSY US PELVIS LIMITED FOLLICLES-FOLLICLE STUDIES PERFORMED Observed: 03/09/2024 7:13 AM Status: F Source: [facility] Follicle scan performed with follicle measurements in report., Trilaminar appearance to the endometrium is noted., and Free fluid is noted in the cul de sac. PROGRESS NOTES Observed: 02/23/2024 8:30 AM Status: COMPLETED Source: [facility] This report has been cancell ed. PROGESTERONE Collected: 4 6:36 AM Status: F Source: [facility] Order Comment: REF VALUES Male <0.2-0.8 Follicular Phase <0.2-1.5 Luteal Phase 7.4-15.4 Post Menopausal <0.2-0.2 1ST Trimester 12.0-84.0 2ND Trimester 10.2-58.8 3RD Trimester 46.5-160 Progesterone is performed using the [employer] Access Immunoassay. Progesterone testing is performed using a different test methodology at [facility] than other [facility]. Direct result comparison should only be made within the same method. TYPE CODE TESTS RESULT OUT OF RANGE REFERENCE UNITS LAB 2839-9(LOINC) Progesterone 5.0 ng/mL Performed By: #### 2839-9 ## ## JOSEPH ESQUIVEL ([id number]) [facility] ([facility]) [address] [place] [address] LUTROPIN Collected: 4 6:36 AM Status: F Source: [facility] TYPE CODE TESTS RESULT OUT OF RANGE REFERENCE UNITS LAB 88927-1(LOINC) Lutropin 35.3 IU/L Result Comment: LH Reference Values Follicular Phase 1.5-10.0 Mid-Cycle 13.0-72.0 Luteal Phase 0.5-13.0 Menopause 15.0-65.0 Pre-puberty 0- 3.0 Children 0- 6.0 Adult Male 1.0- 9.0 Luteinizing Hormone is performed using the [employer] Access Immunoassay. LH testing is performed using a different test methodology at [facility] than other [facility]. Direct result comparison should only be made within the same method. Performed By: #### 62912-8 # ### JOSEPH ESQUIVEL ([id number]) [facility] ([facility]) [address] [place] [address] PROGESTERONE Collected: 4 8:13 AM Status: F Source: [facility] Order Comment: REF VALUES Male <0.2-0.8 Follicular Phase <0.2-1.5 Luteal Phase 7.4-15.4 Post Menopausal <0.2-0.2 1ST Trimester 12.0-84.0 2ND Trimester 10.2-58.8 3RD Trimester 46.5-160 Progesterone is performed using the [employer] Access Immunoassay. Progesterone testing is performed using a different test methodology at [facility] than other [facility]. Direct result comparison should only be made within the same method. TYPE CODE TESTS RESULT OUT OF RANGE REFERENCE UNITS LAB 2839-9(LOINC) Progesterone 1.3 ng/mL Performed By: #### 2839-9 ## ## ORA MOHAN ([id number]) [facility] ([facility]) [address] [place] [address] ESTRADIOL Collected: 4 8:13 AM Status: F Source: [facility] Order Comment: REF VALUES FOLLICULAR PHASE 20-144 MID CYCLE 64-357 LUTEAL PHASE 56-214 POSTMENOPAUSE < 32 PREPUBERTY < 20 FEMALE 10-18Y 8-110 MALE 10-18Y < 20 ADULT MALE < 40 Estradiol measurement is performed using the [employer] Access Estradiol Immunoassay. Estradiol testing is performed using a different test methodology at [facility] than other [facility]. Direct result comparison should only be made within the same method. TYPE CODE TESTS RESULT OUT OF RANGE REFERENCE UNITS LAB 2243-4(LOINC) Estradiol 5153 pg/mL Performed By: #### 2243-4 ## ## ORA MOHAN ([id number]) [facility] ([facility]) [address] [place] [address] LUTROPIN Collected: 8:13 AM Status: F Source: [facility] TYPE CODE TESTS RESULT OUT OF RANGE REFERENCE UNITS LAB 61375-4(LOINC) Lutropin 0.9 IU/L Result Comment: LH Reference Values Follicular Phase 1.5-10.0 Mid-Cycle 13.0-72.0 Luteal Phase 0.5-13.0 Menopause 15.0-65.0 Pre-puberty 0- 3.0 Children 0- 6.0 Adult Male 1.0- 9.0 Luteinizing Hormone is performed using the [employer] Access Immunoassay. LH testing is performed using a different test methodology at [facility] than [facility]. Direct result comparison should only be made within the same method. Performed By: #### 67894-3 # ### ORA MOHAN ([id number]) [facility] ([facility] [address] [place] [address] KELSY US PELVIS LIMITED FOLLICLES-FOLLICLE STUDIES PERFORMED Observed: 02/21/2024 8:12 AM Status: F Source: [facility] Follicle scan performed with follicle measurements in report. PROGESTERONE Collected: 9:22 AM Status: F Source: [facility] Order Comment: REF VALUES Male <0.2-0.8 Follicular Phase <0.2-1.5 Luteal Phase 7.4-15.4 Post Menopausal <0.2-0.2 1ST Trimester 12.0-84.0 2ND Trimester 10.2-58.8 3RD Trimester 46.5-160 Progesterone is performed using the [employer] Access Immunoassay. Progesterone testing is performed using a different test methodology at [facility] than other [facility]. Direct result comparison should only be made within the same method. TYPE CODE TESTS RESULT OUT OF RANGE REFERENCE UNITS LAB 2839-9(LOINC) Progesterone 1.4 ng/mL Performed By: #### 2839-9 ## ## ORA MOHAN ([id number]) [facility] ([facility] [address] [place] [address] ESTRADIOL Collected: 9:22 AM Status: F Source: [facility] Order Comment: REF VALUES FOLLICULAR PHASE 20-144 MID CYCLE 64-357 LUTEAL PHASE 56-214 POSTMENOPAUSE < 32 PREPUBERTY < 20 FEMALE 10-18Y 8-110 MALE 10-18Y < 20 ADULT MALE < 40 Estradiol measurement is performed using the [employer] Access Estradiol Immunoassay. Estradiol testing is performed using a different test methodology at [facility] than other [facility]. Direct result comparison should only be made within the same method. TYPE CODE TESTS RESULT OUT OF RANGE REFERENCE UNITS LAB 2243-4(LOINC) Estradiol 3718 pg/mL Performed By: #### 2243-4 ## ## ORA MOHAN ([id number]) [facility] ([facility] [address] [id number] KELSY US PELVIS LIMITED FOLLICLES-FOLLICLE STUDIES PERFORMED Observed: 02/20/2024 8:13 AM Status: F Source: [facility] Follicle scan performed with follicle measurements in report. ESTRADIOL Collected: 7:49 AM Status: F Source: [facility] Order Comment: REF VALUES FOLLICULAR PHASE 20-144 MID CYCLE 64-357 LUTEAL PHASE 56-214 POSTMENOPAUSE < 32 PREPUBERTY < 20 FEMALE 10-18Y 8-110 MALE 10-18Y < 20 ADULT MALE < 40 Estradiol measurement is performed using the [employer] Access Estradiol Immunoassay. Estradiol testing is performed using a different test methodology at [facility] than other [facility]. Direct result comparison should only be made within the same method. TYPE CODE TESTS RESULT OUT OF RANGE REFERENCE UNITS LAB 2243-4(LOINC) Estradiol 1472 pg/mL Performed By: #### 2243-4 ## ## ORA MOHAN ([id number]) [facility] ([facility] [address] [id number] KELSY US PELVIS LIMITED FOLLICLES-FOLLICLE STUDIES PERFORMED Observed: 02/18/2024 7:39 AM Status: F Source: [facility] Follicle scan performed with follicle measurements in report. Trilaminar appearance to the endometrium is noted. Free fluid is noted in the right paraovarian space. Notably retroverted uterus. ESTRADIOL Collected: 7:20 AM Status: F Source: [facility] Order Comment: REF VALUES FOLLICULAR PHASE 20-144 MID CYCLE 64-357 LUTEAL PHASE 56-214 POSTMENOPAUSE < 32 PREPUBERTY < 20 FEMALE 10-18Y 8-110 MALE 10-18Y < 20 ADULT MALE < 40 Estradiol measurement is performed using the [employer] Access Estradiol Immunoassay. Estradiol testing is performed using a different test methodology at [facility] than other [facility]. Direct result comparison should only be made within the same method. TYPE CODE TESTS RESULT OUT OF RANGE REFERENCE UNITS LAB 2243-4(LOINC) Estradiol 639 pg/mL Performed By: #### 2243-4 ## ## JOSEPH ESQUIVEL ([id number]) [facility] ([facility]) [address] [place] [address] KELSY US PELVIS LIMITED FOLLICLES-FOLLICLE STUDIES PERFORMED Observed: 02/16/2024 7:05 AM Status: F Source: [facility] Follicle scan performed with follicle measurements in report. and Trilaminar appearance to the endometrium is noted. HEMATOCRIT Collected: 7:34 AM Status: F Source: [facility] TYPE CODE TESTS RESULT OUT OF RANGE REFERENCE UNITS LAB 4544-3(LOINC) Hematocrit 42.9 36.0-46.0 % Performed By: #### 4544-3 ## ## JOSEPH ESQUIVEL ([id number]) [facility] ([facility]) [address] [place] [address] ESTRADIOL Collected: 7:34 AM Status: F Source: [facility] Order Comment: REF VALUES FOLLICULAR PHASE 20-144 MID CYCLE 64-357 LUTEAL PHASE 56-214 POSTMENOPAUSE < 32 PREPUBERTY < 20 FEMALE 10-18Y 8-110 MALE 10-18Y < 20 ADULT MALE < 40 Estradiol measurement is performed using the GreenIQ Access Estradiol Immunoassay. Estradiol testing is performed using a different test methodology at [facility] than other [facility] [place] [facility]. Direct result comparison should only be made within the same method. TYPE CODE TESTS RESULT OUT OF RANGE REFERENCE UNITS LAB 2243-4(LOINC) Estradiol <20 pg/mL Performed By: #### 2243-4 ## ## JOSEPH ESQUIVEL ([id number]) [facility] ([facility]) [address] [place] [address] KELSY US PELVIS LIMITED FOLLICLES-FOLLICLE STUDIES PERFORMED Observed: 02/09/2024 7:13 AM Status: F Source: [facility] Follicle scan performed with follicle measurements in report. ALLERGIES DATE TYPE / CODE NAME / CODE REACTION SEVERITY SOURCE 2023 DRUG INGREDI~Environ /[id number](SNOM ED CT) LATEX Rash [facility] 2023 DRUG INGREDI~Environ /609681569(SNOM ED CT) NICKEL Rash [facility] /[id number](SN OMED CT) Nickel itching [facility] /642526416(SN OMED CT) No Known Allergies [facility] /037500327(SN OMED CT) Latex itching [facility] /809453557(SN OMED CT) Zithromax [id number] [facility] ENCOUNTERS ADMIT/DISCHARGE ACCOUNT NUMBER ADMITTING ENCOUNTER CLASS LOCATION SOURCE 01/31/2025/ 5 [id number] Ambulatory Building:NOM S [facility] 01/16/2025/ 5 [id number] Ambulatory Building:NOM S [facility] OB [facility] 01/03/2025/ 5 [id number] Ambulatory Building:NOM S [facility] 12/19/2024/ 5 [id number] Ambulatory Building:NOM S [facility] 12/19/2024/ 5 [id number] Ambulatory Building:[facility] 12/06/2024/ 5 [id number] Ambulatory Building:NOM S [facility] 11/08/2024/ 5 [id number] Ambulatory Building:NOM S [facility] 10/17/2024/ 5 [id number] Ambulatory Building:NOM S [facility] 10/11/2024/ 5 [id number] Ambulatory Building:NOM S [facility] 10/07/2024/ 5 [id number] Ambulatory Building:[address] 10/05/2024 [id number] Ambulatory [place] [facility]Building:N sveta [facility] 09/22/2024/ 5 [id number] Ambulatory Building:NOM S [facility] 09/06/2024/ 5 [id number] Ambulatory Building:NOM S [facility] 08/08/2024/ 5 [id number] Ambulatory Building:NOM S [facility] 07/29/2024/ 5 [id number] Ambulatory Building:NOM S [facility] 07/11/2024/ 5 [id number] Ambulatory Building:[address] 07/11/2024/ 5 [id number] Ambulatory Building:[address] 06/30/2024/ 5 [id number] Ambulatory Building:[address] 06/23/2024/ 5 [id number] Ambulatory Building:[facility] 06/23/2024/ 5 [id number] Ambulatory Building:[address] 06/13/2024/ 5 [id number] Ambulatory Building:[address] 06/07/2024/ 5 [id number] Ambulatory Building:[facility] 06/07/2024/ 5 [id number] Ambulatory Building:[address] 06/06/2024/ 5 [id number] Ambulatory Building:[facility] 06/06/2024/ 5 [id number] Ambulatory Building:[address] 05/23/2024/ 5 [id number] Ambulatory Building:[address] 04/06/2024/ 4 [id number] Ambulatory [place] PCBuilding:[place] PCRoom: Exam 2 [facility] 03/22/2024/ 4 [id number] Ambulatory Building:[address] 03/21/2024/ 4 [id number] Ambulatory Building:[facility] 03/21/2024/ 4 [id number] Ambulatory Building:[address] 03/20/2024/ 4 [id number] Ambulatory Building:[address] 03/19/2024/ 4 [id number] Ambulatory Building:[facility] 03/19/2024/ 4 [id number] Ambulatory Building:[address] 03/17/2024/ 4 [id number] Ambulatory Building:[address] 03/17/2024/ 4 [id number] Ambulatory Building:[address] 03/15/2024/ 4 [id number] Ambulatory Building:[address] 03/15/2024/ 4 [id number] Ambulatory Building:[address] 03/09/2024/ 4 [id number] Ambulatory Building:[address] 03/09/2024/ 4 [id number] Ambulatory Building:[address] 02/23/2024/ 4 [id number] Ambulatory Building:[address] 02/22/2024/ 4 [id number] Ambulatory Building:[address] 02/21/2024/ 4 [id number] Ambulatory Building:[address] 02/20/2024/ 4 [id number] Ambulatory Building:[facility] 02/20/2024/ 4 [id number] Ambulatory Building:[address] 02/18/2024/ 4 [id number] Ambulatory Building:[address] 02/18/2024/ 4 [id number] Ambulatory Building:[address] 02/16/2024/ 4 [id number] Ambulatory Building:[address] 02/09/2024/ 4 [id number] Ambulatory Building:[address] 02/02/2024/ 4 [id number] Ambulatory Building:[address] PAYERS ENCOUNTER GUARANTOR PAYER SUBSCRIBER SOURCE 01/31/2025 OLENA JONESB: [facility] [address], [place] [address]Nqw: () Primary Insurance:MEDICAL MUTUALPolicy Number: [id number] e Date:2022-11-01 OLENA JONESB: [id number] [address] [address] [facility] 01/16/2025 OLENA JONESB: [id number] [facility] [address], [place] [address]Lox: (HP) Primary Insurance:MEDICAL MUTUALPolicy Number: [id number] e Date:2022-11-01 OLENA COATESERDOB: [id number] [address] [place] [address] [facility] EPIC 01/03/2025 OLENA COATESERDOB: [facility] [address], [place] [address]Zud: (HP) Primary Insurance:MEDICAL MUTUALPolicy Number: [id number] e Date:2022-11-01 OLENA COATESERDOB: [id number] [address], [facility] EPIC 12/19/2024 OLENA COATESERDOB: [facility] [address], [place] [address]Cwh: (HP) Primary Insurance:MEDICAL MUTUALPolicy Number: [id number] e Date:2022-11-01 OLENA COATESERDOB: [id number] [place] [id number] [facility] EPIC 12/19/2024 OLENA COATESERDOB: [facility] [address] [place] [address]Nbr: (HP) Primary Insurance:MEDICAL MUTUALPolicy Number: [id number] e Date:2022-11-01 OLENA COATESERDOB: [id number] [address] [place] [address], [place] [address] [facility] EPIC 12/06/2024 OLENA COATESERDOB: [facility] [address], [place] [address]Mgg: (HP) Primary Insurance:MEDICAL MUTUALPolicy Number: [id number] e Date:2022-11-01 OLENA COATESERDOB: [id number] [address] [place] [address] [facility] EPIC 11/08/2024 OLENA JONESB: [facility] [address], [place] [address]Bpk: (HP) Primary Insurance:MEDICAL MUTUALPolicy Number: [id number] e Date:2022-11-01 OLENA JONESB: [id number] [address] [place] [address] [facility] EPIC 10/17/2024 OLENA ROMERODOB: [facility] [address] [place] [address]The: (HP) Primary Insurance:MEDICAL MUTUALPolicy Number: [id number] e Date:2022-11-01 OLENA JONESB: [id number] [address] [place] [address], [place] [address] [facility] EPIC 10/11/2024 OLENA ROMERODOB: [facility] [address] [place] [address]Dij: (HP) Primary Insurance:MEDICAL MUTUALPolicy Number: [id number] e Date:2022-11-01 OLENA ROMERODOB: [id number], [place] [address] [facility] EPIC 10/07/2024 OLENA JONESB: [facility] [address] [place] [address]Zhx: (HP) Primary Insurance:MEDICAL MUTUAL [facility] Number: [id number] e Date:2023-05-04 OLENA JONESB: [id number] [facility] [address], [place] [address]Isl: (HP) [facility] 10/05/2024 OLENA JONESB: [facility] 136Tel: ~~(4 1 (HP) Primary Insurance:MEDICAL MUTUALPolicy Number: [id number] e Date:6722-30-70[address] [address]KX: OLENA CARTER [facility] 09/22/2024 OLENA JONESB: [facility] [address], [place] [address]Mdw: (HP) Primary Insurance:MEDICAL MUTUALPolicy Number: [id number] e Date:2022-11-01 OLENA JONESB: [id number] [address] [facility] EPIC 09/06/2024 OLENA JONESB: [facility] [address] [place] [address]Dku: () Primary Insurance:MEDICAL MUTUALPolicy Number: [id number] e Date:2022-11-01 OLENA JONESB: [id number] [address] [facility] EPIC 08/08/2024 OLENA ROMERODOB: [facility] [address], [place] [address]Msm: (HP) Primary Insurance:MEDICAL MUTUALPolicy Number: [id number] e Date:2022-11-01 OLENA ROMERODOB: [id number] [address] [facility] EPIC 07/29/2024 OLENA ROMERODOB: [facility] [address] [address]Hre: (HP) Primary Insurance:MEDICAL MUTUALPolicy Number: [id number] e Date:2022-11-01 OLENA JONESB: [id number] [facility] 61[facility] [place] [address] [facility] 07/11/2024 OLENA GASTELUM: [facility] [address] [place] [address]Mtf: (HP) Primary Insurance:[facility] Number: [id number] e Date:2023-05-04 OLENA JONESB: [id number] [facility] [place], [place] [address]Wis: (HP) [facility] 07/11/2024 OLENA JONESB: [facility] [address] [place] [address]Osd: (HP) Primary Insurance:[facility] Number: [id number] e Date:2023-05-04 OLENA GASTELUM: [id number] [facility] [place], [place] [address]Fjp: (HP) [facility] 06/30/2024 OLENA GASTELUM: [facility] [address] [place] [address]Nra: () Primary Insurance:[facility] Number: [id number] e Date:2023-05-04 OLENA GASTELUM: [id number] [facility] [place], [place] [address]Gvs: (HP) [facility] 06/23/2024 OLENA JONESB: [facility] [address] [place], [place] [address]Ahq: () Primary Insurance:[facility] Number: [id number] e Date:2023-05-04 OLENA JONESB: [id number] [address] [place] [place] [address]Pnu: (HP) [facility] 06/23/2024 OLENA NIRAV: [id number] [facility] [place] [address]Rwz: (HP) Primary Insurance:[facility] Number: [id number] e Date:2023-05-04 OLENA NIRAV: [id number] [facility] [place], [place] [address]Loo: (HP) [facility] 06/13/2024 OLENA NIRAV: [facility] [place] [address]Rrh: (HP) Primary Insurance:[facility] Number: [id number] e Date:2023-05-04 OLENAIrene GASTELUM: [id number] [facility] [place] [address]Alk: (HP) [facility] 06/07/2024 OLENA NIRAV: [facility] [place] [address]Dkr: () Primary Insurance:[facility] Number: [id number] e Date:2023-05-04 OLENAIrene GASTELUM: [id number] [facility] [place] [address]Gii: (HP) [facility] 06/07/2024 OLENAIrene GASTELUM: [facility] [place] [address]Dmu: () Primary Insurance:[facility] Number: [id number] e Date:2023-05-04 OLENAIrene JONESB: [id number] [address] [place] [place] [address]Wsu: (HP) [facility] 06/06/2024 OLENABETH GASTELUM: [id number] [facility] [place] [address]Hgk: (HP) Primary Insurance:[facility] Number: [id number] e Date:2023-05-04 OLENA GASTELUM: [id number] [facility] [place], [place] [address]Bak: (HP) [facility] 06/06/2024 OLENA GASTELUM: [id number] [facility] [place] [address]Our: (HP) Primary Insurance:[facility] Number: [id number] e Date:2023-05-04 OLENA GASTELUM: [id number] [facility] [place], [place] [address]Mok: (HP) [facility] 05/23/2024 OLENA GASTELUM: [id number] [facility] [place] [address]Vcp: (HP) Primary Insurance:[facility] Number: [id number] e Date:2023-05-04 OLENA GASTELUM: [id number] [facility] [place] [address]Ftd: (HP) [facility] 04/06/2024 OLENA GASTELUM: [id number] [facility] 136Tel: ~~(4 1 (HP) Primary Insurance:MEDICAL BIRCHWOODPolicy Number: [id number] e Date:0792-57-62[address] [address]MV: OLENA Gt JAXONPIPERDUY [facility] 03/22/2024 OLENA ROBERTB: [facility] [address] [place], [place] [address]Tjt: () Primary Insurance:[facility] Number: [id number] e Date:2023-05-04 OLENA ROBERTB: [id number] [facility] [place] [address]Ceb: (HP) [facility] 03/21/2024 OLENA JAXONPIPERB: [facility] [place] [address]Vzf: (HP) Primary Insurance:[facility] Number: [id number] e Date:2023-05-04 OLENA ROBERTB: [id number] [facility] [place], [place] [address]Uxu: () [facility] 03/21/2024 OLENA VELASQUEZDELGADOPIPERB: [facility] [place] [address]Tzj: () Primary Insurance:[facility] Number: [id number] e Date:2023-05-04 OLENA ROBERTB: [id number] [facility] [place] [address]Snr: (HP) [facility] 03/20/2024 OLENA ROBERTB: [facility] [place] [address]Scs: () Primary Insurance:[facility] Number: [id number] e Date:2023-05-04 OLENA ROBERTB: [id number] [facility] [place] [address]Jpb: (HP) [facility] 03/19/2024 OLENA NIRAV: [facility] [place] [address]Vzw: () Primary Insurance:[facility] Number: [id number] e Date:2023-05-04 OLENA ROBERTB: [id number] [facility] [place] [address]Gos: () [facility] 03/19/2024 OLENA ROBERTB: [facility] [place] [address]Hwl: () Primary Insurance:[facility] Number: [id number] e Date:2023-05-04 OLENA ROBERTB: [id number] [facility] [place] [address]Tof: () [facility] 03/17/2024 OLENA ROBERTB: [facility] [place] [address]Dxo: () Primary Insurance:[facility] Number: [id number] e Date:2023-05-04 OLENA ROBERTB: [id number] [facility] [place] [address]Pgl: () [facility] 03/17/2024 OLENA ROBERTB: [facility] [place] [place] [address]Qxe: () Primary Insurance:[facility] Number: [id number] e Date:2023-05-04 OLENA ROBERTB: [id number] [facility] [place] [address]Xfh: (HP) [facility] 03/15/2024 OLENA NIRAV: [facility] [place] [address]Vtv: () Primary Insurance:[facility] Number: [id number] e Date:2023-05-04 OLENA ROBERTB: [id number] [facility] [place] [address]Ccq: () [facility] 03/15/2024 OLENA ROBERTB: [facility] [place] [address]Myc: () Primary Insurance:[facility] Number: [id number] e Date:2023-05-04 OLENA ROBERTB: [id number] [facility] [place] [address]Koq: () [facility] 03/09/2024 OLENA ROBERTB: [facility] [place] [address]Krp: () Primary Insurance:[facility] Number: [id number] e Date:2023-05-04 OLENA ROBERTB: [id number] [facility] [place] [address]Upn: () [facility] 03/09/2024 OLENA ROBERTB: [facility] [place] [address]Nbh: () Primary Insurance:[facility] Number: [id number] e Date:2023-05-04 OLENA ROBERTB: [id number] [facility] [place] [address]Vhg: () [facility] 02/23/2024 OLENA ROBERTB: [facility] [address] [place] [address]Vko: () Primary Insurance:[facility] Number: [id number] e Date:2023-05-04 OLENA ROBERTB: [id number] [facility] [address] [place] [address]Yck: () [facility] 02/22/2024 OLENA ROBERTB: [facility] [address] [place] [address]Txj: () Primary Insurance:[facility] Number: [id number] e Date:2023-05-04 OLENA ROBERTB: [id number] [facility] [address] [place], [place] [address]Flp: () [facility] 02/21/2024 OLENA ROBERTB: [facility] [address] [place] [address]Zhh: () Primary Insurance:[facility] Number: [id number] e Date:2023-05-042024-02-15 OLENA ROBERTB: [id number] [facility] [address] [place] [address]Fle: () [facility] 02/20/2024 OLENA ROBERTB: [id number] [facility] [address] [place] [address]Hvc: () Primary Insurance:[facility] Number: [id number] e Date:2023-05-04 OLENAIrene JONESB: [id number] [facility] [address] [place] [address]Pig: (HP) [facility] 02/20/2024 OLENA ROBERTB: [facility] [place] [address]Kwc: () Primary Insurance:[facility] Number: [id number] e Date:2023-05-042024-02-15 OLENA ROBERTB: [id number] [facility] [address] [place], [place] [address]Ldy: () [facility] 02/18/2024 OLENA ROBERTB: [facility] [place] [address]Lrd: () Primary Insurance:[facility] Number: [id number] e Date:2023-05-042024-02-15 OLENA ROBERTB: [id number] [facility] [address] [place], [place] [address]Azt: () [facility] 02/18/2024 OLENA ROBERTB: [facility] [address] [place], [place] [address]Dxz: () Primary Insurance:[facility] Number: [id number] e Date:2023-05-042024-02-15 OLENA ROBERTB: [id number] [facility] [address] [place], [place] [address]Vjr: () [facility] 02/16/2024 OLENAIrene JONESB: [facility] [address] [place], [place] [address]Lda: () Primary Insurance:[facility] Number: [id number] e Date:2023-05-04 OLENA GASTELUM: [id number] [facility] [address] [place] [address]Dsw: () [facility] 02/09/2024 OLENA JONESB: [id number] [facility] [address] [place] [address]Fnv: () Primary Insurance:[facility] Number: [id number] e Date:2023-05-04 OLENA JONESB: [id number] [facility] [address] [place] [address]Upb: () [facility] 02/02/2024 OLENA JONESB: [id number] [facility] [address] [place] [address]Zpa: () Primary Insurance:[facility] Number: [id number] e Date:2023-05-04 OLENA JONESB: [id number] [facility] [place] [address]Imw: () [facility]
--- OUTSIDE RECORDS SUMMARY | 2025-01-31 21:08 | XMS_ITS | Encounter Summary ---
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 Name Role Phone Unavailable Primary Care Provider Unavailabl e Encounter Details Date Type Department Care Team (Late st Contact Info) Description 01/18/2025 Clinisync Result Encounter [facility] External Department Unsolicited Rula Courtney DO [address] [place] [address] 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 Tobacco Use Types [...] PM EDT Routine [facility] [address] [facility] [place] [address] Maria M Guerrero, MARGARITO [address] [facility] [place] [address] documented as of this encounter Procedures Procedure Name Priority Date/Time Associated Diagnosis Comments US OB BPP W NON-STRESS 01/18/2025 9:02 AM EDT documented in this encounter Results * US OB BPP W NON-STRESS (01/18/2025 9:02 AM EDT) Anatomical Region Laterality Modality Other 01/18/2025 9:02 AM EDT Narrative 01/18/2025 9:05 AM EDT [address] [address] Ultrasound Report Signed Patient: OLENA GARCIA MR#: [id number] : 1995 Acct:[id number] Age/Sex: 29 / F ADM Date: 01/17/25 Loc: US Attending Dr: Rula Courtney D.O. Ordering Physician: Rula Courtney D.O. Date of Service: 01/17/25 Procedure(s): US OB BPP w non-stress Accession Number(s): [id number] cc: Rula Courtney D.O.; Physician,Non-Staff Steven [address] [address] Patient Name: OLENA GARCIA MRN: [id number] date: 1995 Sex: F Assigned Patient Location: [facility] Current Patient Location: Accession/Order Number: [id number] Exam Date: 01/17/2025 16:08 Report Date: 01/18/2025 [...] 01/18/2025 9:02 AM Dictation Location: [place] [address] Electronically authenticated by: [id number] Y Date: 01/18/2025 09:02 Dictated By: Mariela Toledo M.D. Signed By: 01/18/25904 DD/ 1 TD/TT: Tire And Lube Technician: Procedure Note Radiology, Radiologist, MD - 01/18/2025 [place] [address] Ultrasound Report Signed Patient: OLENA GARCIA RMR#: [id number] : 1995Acct:[id number] Age/Sex: 29 / FADM Date: 01/17/25 Loc: US Attending Dr: Rula Courtney D.O. Ordering Physician: Rula Courtney D.O. Date of Service: 01/17/25 Procedure(s): US OB BPP w non-stress Accession Number(s): [id number] cc: Rula Courtney D.O.; Physician,Non-Staff Steven The [address] [id number] Patient Name: OLENA GARCIA MRN: [id number] date: 1995 Sex: F Assigned Patient Location: [facility] Current Patient Location: Accession/Order Number: [id number] Exam Date: 01/17/2025 16:08 Report Date: 01/18/2025 09:02 At the request of: RULA COURTNEY DO Procedure: US OB BPP w non-stress BIOPHYSICAL PROFILE: CLINICAL INFORMATION: resulting from in vitro [id number] COMPARISON: 01/10/2025 There is a single live [...] 01/18/2025 9:02 AM Dictation Location: [place] [address] Electronically authenticated by: [id number] Y Date: 9:02 Dictated By: Mariela Toledo M.D. Signed By:01/18/25904 DD/ 1 TD/TT: Tire And Lube Technician: Rula Courtney DO [facility] Final Result documented in this encounter Visit Diagnoses Not on filedocumented in this encounter
--- OUTSIDE RECORDS SUMMARY | 2025-01-31 21:08 | XMS_ITS | Encounter Summary ---
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 Name Role Phone Unavailable Primary Care Provider Unavailabl e Encounter Details Date Type Department Care Team (Late st Contact Info) Description 01/24/2025 Clinisync Result Encounter [facility]OMS External Department Unsolicited Rula Courtney DO [address] [place] [address] 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 Tobacco Use Types [...] PM EDT Routine [facility] [address] [place] [address] Maria M Guerrero, MARGARITO [address] [facility] [place] [address] documented as of this encounter Procedures Procedure Name Priority Date/Time Associated Diagnosis Comments US OB BPP W NON-STRESS 01/24/2025 7:55 PM EDT documented in this encounter Results * US OB BPP W NON-STRESS (01/24/2025 7:55 PM EDT) Anatomical Region Laterality Modality Other 01/24/2025 7:55 PM EDT Narrative 01/24/2025 7:58 PM EDT [place] [id number] Ultrasound Report Signed Patient: OLENA GARCIA MR#: [id number] : 1995 Acct:[id number] Age/Sex: 29 / F ADM Date: 01/24/25 Loc: US Attending Dr: Rula Courtney D.O. Ordering Physician: Rula Courtney D.O. Date of Service: 01/24/25 Procedure(s): US OB BPP w non-stress Accession Number(s): [id number] cc: Rula Courtney D.O.; Physician,Non-Staff Steven [address] [address] Patient Name: OLENA GARCIA MRN: [id number] date: 1995 Sex: F Assigned Patient Location: [facility] Current Patient Location: Accession/Order Number: [id number] Exam Date: 01/24/2025 16:10 Report Date: 01/24/2025 19:55 At the request of: RULA COURTNEY DO Procedure: US OB BPP w non-stress Biophysical profile. Reason for exam: resulting in vitro fertilization COMPARISON: 01/17/2025 TECHNIQUE: Transabdominal imaging of the gravid uterus was obtained. FINDINGS: The forest products teacher reports a BPP of 6 out of 8 with 0/2 for gross body movements.. LONNY is normal at 11.9 cm. heart rate 148 bpm. US/US OB BPP w non-stress IMPRESSION: BPP 6out of 8. Correlation with NST is suggested. Impression dictated by: Juan Salinas Jr., D.O. 01/24/2025 7:55 PM Dictation Location: [place] [address] Electronically authenticated by: [id number] Y Date: 01/24/2025 19:55 Dictated By: Juan Salinas M.D. Signed By: 01/24/251957 DD/ 54 TD/TT: Division Superintendent: Procedure Note Radiology, Radiologist, MD - 01/24/2025 [place] [address] Ultrasound Report Signed Patient: OLENA GARCIA RMR#: [id number] : 1995Acct:[id number] Age/Sex: 29 / FADM Date: 01/24/25 Loc: US Attending Dr: Rula Courtney D.O. Ordering Physician: Rula Courtney D.O. Date of Service: 01/24/25 Procedure(s): US OB BPP w non-stress Accession Number(s): [id number] cc: Rula Courtney D.O.; Physician,Non-Staff Steven The [place] [address] Patient Name: OLENA GARCIA MRN: [facility]:[id number] date: 1995 Sex: F Assigned Patient Location: [facility] Current Patient Location: Accession/Order Number: [id number] Exam Date: 01/24/2025 16:10 Report Date: 01/24/2025 19:55 At the request of: RULA COURTNEY DO Procedure: US OB BPP w non-stress Biophysical profile. Reason for exam: resulting in vitro fertilization COMPARISON: 01/17/2025 TECHNIQUE: Transabdominal imaging of the gravid uterus was obtained. FINDINGS: The forest products teacher reports a BPP of 6 out of 8 with 0/2 for grossbody movements.. LONNY is normal at 11.9 cm. heart rate 148 bpm. US/US OB BPP w non-stress IMPRESSION: BPP 6out of 8. Correlation with NST is suggested. Impression dictated by: Juan Salinas Jr., D.O. 01/24/2025 7:55 PM Dictation Location: [place] Electronically authenticated by: [id number] Y Date: 9:55 Dictated By: Juan Salinas M.D. Signed By:01/24/251957 DD/ 54 TD/TT: Division Superintendent: us Rula Courtney DO [facility] Final Result documented in this encounter Visit Diagnoses Not on filedocumented in this encounter
--- OUTSIDE RECORDS SUMMARY | 2025-01-31 21:08 | XMS_ITS | Encounter Summary ---
Author Organization [facility] Address [address] [place] [address] Phone Care Team Providers Care Leadership Development Consultant Name Role Phone Allyssa Robles RN Unavailable Unavailable Encounter Details Date Type Department Care Team (Late st Contact Info) Description 06/07/2024 Lab Requisition [facility] [address] [place] [phone] America Chavez, DRY PAN FEEDER-HOSPITALITY HOST [address] [place] [address] Female infertility, unspecified 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 Tobacco Use [...] LAB IMMUNOASSAY METHOD 06/10/2024 8:33 PM EST [facility] Comment: Blood Venous blood specimen / Unknown 06/07/2024 8:45 AM EST 06/07/2024 10:22 AM EST Narrative [facility] - 06/10/2024 8:33 PM EST REF VALUES Male <0.2-0.8 Follicular Phase <0.2-1.5 Luteal Phase 7.4-15.4 Post Menopausal <0.2-0.2 1ST Trimester 12.0-84.0 2ND Trimester 10.2-58.8 3RD Trimester 46.5-160 Progesterone is performed using the [employer] Access Immunoassay. Progesterone testing is performed using a different test methodology at [facility] than other [facility]. Direct result comparison should only be made within the same method. America Chavez APRNWHMSOFTHOSPITALITY HOST LAB BLOOD ORDERABLES Edite d Result - Final Performing Organization Address City/State/[facility] Co de Phone Number [facility] [address] [place] [phone] * Estradiol (06/07/2024 8:45 AM EST) Estradiol 2,870 pg/mL LAB IMMUNOASSAY METHOD 06/07/2024 10:43 AM EST [facility] Blood Venous blood specimen / Unknown 06/07/2024 8:45 AM EST 06/07/2024 10:22 AM EST Narrative [facility] - 06/07/2024 10:43 AM EST REF VALUES FOLLICULAR PHASE 20-144 MID CYCLE 64-357 LUTEAL PHASE 56-214 POSTMENOPAUSE < 32 PREPUBERTY < 20 FEMALE 10-18Y 8-110 MALE 10-18Y < 20 ADULT MALE < 40 America Chavez DRY PAN FEEDER-HOSPITALITY HOST LAB BLOOD ORDERABLES Final Result [facility] [address] [place] [address] documented in this encounter Visit Diagnoses Diagnosis Female infertility, unspecified documented in this encounter Care Teams Leadership Development Consultant Relationship Specialty Start Date End Date Allyssa Robles, MISHEL Registered Nurse Reproductive Endocrinology and Infertility 12/25/23 documented as of this encounter
--- OUTSIDE RECORDS SUMMARY | 2025-01-31 21:08 | XMS_ITS | Clinical Summary ---
Author Organization [facility] Address [address] [place] [address] Phone Care Team Providers Care Filling Hauler Weaving Name Role Phone Allyssa Robles RN Unavailable Unavailable Allergies Active Allergy Reactions Criticality Noted Date Comments Latex Rash Low 2023 Nickel Rash Low 2023 Medications [id number]- [id number] 29-1-400 mg combo pack,tablet and cap,DR [...] C Antibody (2023 10:21 AM EDT) Pathologist [facility] Hepatitis C Anitbody Nonreactive Nonreactive LAB IMMUNOASSAY METHOD 2023 7:11 PM EDT [facility] Comment:Results from patient s taking biotin supplements or receiving high-dose biotin therapy should be interpreted with caution due to possible interference with this test. Providers may contact their local laboratory for further information. Blood Venous blood specimen / Unknown Venipuncture / Unknown 2023 10:21 AM EDT 2023 10:21 AM EDT us Trish Sun SEROLOGY TECHNICIAN-FRUIT BAR MAKER LAB BLOOD ORDERABLES Fin al Result [facility] [id number] [place], [place] [id number] * HIV 1/2 Antigen/Antibody Screen with Reflex to Confirmation (2023 10:21 AM EDT) HIV 1/2 Antigen/Antibo dy Screen with Reflex to Confirmation Nonreactive Nonreactive LAB IMMUNOASSAY METHOD 2023 7:37 PM EDT [facility] Blood Venous blood specimen / Unknown Venipuncture / Unknown 2023 10:21 AM EDT 2023 10:21 AM EDT Narrative [facility] - 2023 7:37 PM EDT HIV Ag/Ab screen is performed using the Siem[employer] HIV Ag/Ab Combo assay which detects the presence of HIV p24 antigen as well as antibodies to HIV-1 (Group M and O) and HIV-2. No laboratory evidence of HIV infection. If acute HIV infection is suspected, consider testing for HIV RNA by PCR (viral load). Trish Sun SEROLOGY TECHNICIAN-FRUIT BAR MAKER LAB BLOOD ORDERABLES Fin al Result [facility] [address] [facility] [id number] [place] [address] from Last 3 Months or Most Recently Relevant to Health Maintenance Insurance [employer] [place] [employer] [place] [employer] Care Teams Filling Hauler Weaving Relationship Specialty Start Date End Date Allyssa Robles, RN Registered Nurse Reproductive Endocrinology and Infertility 12/25/23
--- OUTSIDE RECORDS SUMMARY | 2025-01-31 21:08 | XMS_ITS | Encounter Summary ---
Author Organization [facility] Address [address] [place] [address] Care Team Providers Care Twisting Department End Finder Name Role Phone Unavailable Primary Care Provider Unavailabl e Encounter Details Date Type Department Care Team (Late st Contact Info) Description 04/10/2023 Clinisync Result Encounter [facility]S External Department Unsolicited Rula Courtney DO [address] [facility] [address] [place], [place] [phone] 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 Tobacco Use Types Packs/Day Years [...] 02/07/2025 1:40 PM EDT Routine [facility] David ZACARIAS [address] [facility] [place] [address] Maria M Guerrero, MARGARITO [address] [facility] [place] [address] documented as of this encounter Procedures Procedure Name Priority Date/Time Associated Diagnosis Comments FL HYSTEROSALPINGOGRAPHY 023 3:10 PM EST documented in this encounter Results * FL HYSTEROSALPINGOGRAPHY (04/10/2023 3:10 PM EST) Anatomical Region Laterality Modality Other 04/10/2023 3:10 PM EST Narrative 04/10/2023 3:13 PM EST The [address] [address] Fluoroscopy Report Signed Patient: OLENA PEREYRA MR#: [id number] : 1995 Acct:[id number] Age/Sex: 27 / F ADM Date: 04/10/23 Loc: LAB Attending Dr: Rula Courtney D.O. Ordering Physician: Rula Courtney D.O. Date of Service: 04/10/23 Procedure(s): FL hysterosalpingography Accession Number(s): [id number] cc: Rula Courtney D.O.; Physician,Non-Staff Steven The [address] [address] Patient Name: OLENA PEREYRA MRN: [id number] date: 1995 Sex: F Assigned Patient Location: LAB Current Patient Location: Accession/Order Number: [id number] Exam Date: 04/10/2023 14:30 Report Date: 04/10/2023 [...] M.D. Signed By: 04/10/231512 DD/ 09 TD/TT: Middle Card Tender: Procedure Note Radiology, Radiologist, MD - 04/10/2023 [place] [address] Fluoroscopy Report Signed Patient: OLENA PEREYRA RMR#: [id number] : 1995Acct:[id number] Age/Sex: 27 / FADM Date: 04/10/23 Loc: LAB Attending Dr: Rula Courtney D.O. Ordering Physician: Rula Courtney D.O. Date of Service: 04/10/23 Procedure(s): FL hysterosalpingography Accession Number(s): [id number] cc: Rula Courtney D.O.; Physician,Non-Staff Steven The [place] [address] Patient Name: OLENA PEREYRA MRN: [id number] date: 1995 Sex: F Assigned Patient Location: LAB Current Patient Location: Accession/Order Number: [id number] Exam Date: 04/10/2023 14:30 Report Date: 04/10/2023 [...] M.D. Signed By:04/10/23 151 DD/ 09 TD/TT: Middle Card Tender: us Rula Courtney DO [facility] Final Result documented in this encounter Visit Diagnoses Not on filedocumented in this encounter
--- OUTSIDE RECORDS SUMMARY | 2025-01-31 21:08 | XMS_ITS | Encounter Summary ---
Author Organization [facility] Address [address] [place] [address] Care Team Providers Care Cat Hooker Name Role Phone Unavailable Primary Care Provider Unavailabl e Encounter Details Date Type Department Care Team (Late st Contact Info) Description 01/21/2024 Orders Only NOMKenisha ZACARIAS [address] [place] [address] Marilia Elder MA [address] [facility] [place] [address] 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 Tobacco Use Types Packs/Day Years [...] Info) Description 02/07/2025 1:40 PM EDT Routine NOMKenisha ZACARIAS [address] [place] [place] [address] Maria M Guerrero, MARGARITO [address] [facility] [place] [address] documented as of this encounter Procedures [...]
--- OUTSIDE RECORDS SUMMARY | 2025-01-31 21:08 | XMS_ITS | Clinical Summary ---
Author Organization [facility] Address [address] [place] [address] Care Team Providers Care Submarine Diver Name Role Phone Unavailable Primary Care Provider Unavailabl e Allergies Active Allergy Reactions Criticality Noted Date Comments Azithromycin Unknown 03/16/2023 Other Reaction(s): Unknown Latex Rash Low 03/16/2023 Other Reaction(s): Itching Nickel Itching,Rash Low 03/16/2023 Medications MV-Min-Fe Fum-FA-DHA ( 1 PO) Take 1 each by mouth Daily Active Active Problems Estimated Date of Delivery Comme nts Yes 03/01/2025 Based on Ultraso und No known active problems Encounters Date Type Department Care Team Description 01/31/2025 1:50 PM EDT Routine [facility] David ZACARIAS [address] [place] [address] Maria M Guerrero NP Third trimester ([facility]); 35 weeks gestation of ([facility]); Encounter for in vitro fertilization 01/31/2025 Bamboo flowsheet [facility] David ZACARIAS [address] [place] [address] Maria M Guerrero NP 01/25/2025 Clinisync Result Encounter NOMS External Department Unsolicited Rula Courtney, DO 01/24/2025 Clinisync Result Encounter NOMS External Department Unsolicited Rula Courtney, DO 01/18/2025 Clinisync Result Encounter NOMS External Department Unsolicited Rula Courtney, DO 01/16/2025 2:50 PM EDT Routine [facility] David ZACARIAS [address] [place] [phone] Rula Courtney, 33 weeks gestation of ([facility]); Third trimester ([facility]); Group B streptococcal infection; resulting from in vitro fertilization in first trimester ([facility]) 01/16/2025 Bamboo flowsheet [facility] David OBGYN [address] [place] [address] Rula Courtney, 01/10/2025 Clinisync Result Encounter NOMS External Department Unsolicited Rula Courtney, 01/03/2025 10:00 [place] [address] Rula Courtney, Third trimester ([facility]); 31 weeks gestation of ([facility]); resulting from in vitro fertilization in third trimester ([facility]) 01/03/2025 Bamboo flowsheet [facility]ACARIAS [address] [place] [address] Rula Courtney, 12/21/2024 [place] [address] Marilia Elder MA 12/19/2024 10:00 [place] [address] Rula Courtney, 29 weeks gestation of ([facility]); Third trimester ([facility]); Leukocytes in urine; Other microscopic hematuria 12/19/2024 9:30 AM EDT [place] [address] resulting from in vitro fertilization in second trimester ([facility]) 12/06/2024 8:30 [place] [address] Rula Courtney, DO 27 weeks gestation of ([facility]); Second trimester ([facility]); resulting from in vitro fertilization in second trimester ([facility]) 12/06/2024 Clinisync Result Encounter NOMS External Department Unsolicited Rula Courtney, DO 12/06/2024 Bamboo flowsheet [facility] David OBGALON [address] [place] [address] Rula Courtney, DO 11/28/2024 Telephone [facility] [address] [place] [address] Rula Courtney, DO 11/26/2024 Clinisync Result Encounter NOMS External Department Unsolicited Rula Courtney, DO 11/18/2024 Abstract [facility] David DE SOUZAN [address] [place] [address] Rula Courtney, DO 11/08/2024 2:40 PM EDT Routine [facility] David DE [address]OUZAN [address] [place] [address] Rula Courtney, DO Second trimester ([facility]); 26 weeks gestation of ([facility]); Diabetes mellitus screening 11/08/2024 Abstract [facility] David TIPTONGYN [address] [place] [address] Emilia Donahue MA from Last 3 [...] (229 lb) 01/31/2025 2:07 PM EDT Height 160 cm (5' 3 ) 09/17/2022 12:00 PM EDT Body Mass Index 40.57 09/17/2022 12:00 PM EDT Plan of Treatment Upcoming Encounters Date Type Department Care Team (Late st Contact Info) Description 02/07/2025 1:40 PM EDT Routine [facility] [address] [place] [address] Maria M Guerrero NP [address] [place] [phone] Procedures Procedure Name Priority Date/Time Associated Diagnosis Comments POCT URINALYSIS DIPSTICK Routine 01/31/2025 2:25 PM EDT 35 weeks gestation of ([facility]) US OB BPP W NON-STRESS 01/25/2025 6:24 PM EDT US OB BPP W NON-STRESS 01/24/2025 7:55 PM EDT US OB BPP W NON-STRESS 01/18/2025 9:02 AM EDT POCT URINALYSIS DIPSTICK Routine 01/16/2025 3:20 PM EDT 33 weeks gestation of ([facility]) Third trimester ([facility]) US OB BPP W NON-STRESS 01/10/2025 9:07 PM EDT POCT URINALYSIS DIPSTICK Routine 01/03/2025 10:22 AM EDT Third trimester ([facility]) 31 weeks gestation of ([facility]) URINARY TRACT INFECTION (HTRX) Routine 12/19/2024 11:28 AM EDT POCT URINALYSIS DIPSTICK Routine 12/19/2024 10:11 AM EDT 29 weeks gestation of ([facility]) Third trimester ([facility]) US OB FOLLOW UP TRANSABDOMINAL APPROACH Routine 12/19/2024 9:56 AM EDT resulting from in vitro fertilization in second trimester ([facility]) GLUCOSE TOLERANCE 3 HOUR Routine 12/06/2024 11:26 AM EDT POCT URINALYSIS DIPSTICK Routine 12/06/2024 8:40 AM EDT 27 weeks gestation of ([facility]) Second trimester ([facility]) GLUCOSE 1 HOUR Routine 11/26/2024 10:03 AM EDT ALL CBC WITH AUTO DIFF Routine 10:03 AM EDT POCT URINALYSIS DIPSTICK Routine 11/09/2024 11:39 AM EDT Second trimester ([facility]) 26 weeks gestation of ([facility]) from Last 3 Months Results * (ABNORMAL) POCT urinalysis dipstick manually resulted (01/31/2025 2:25 PM EDT) Only the most recent of6 resultswithin the time period is included. Color, UA Yellow Clarity, UA Clear Glucose, UA Negative Negative - 1999(110) ++++ mg/dL Bilirubin, UA Negative Negative - 4(70) +++ mg/dL Ketones, UA Negative Negative - 160(16) ++++ mg/dL Spec Grav, UA 1.010 1 - 1.03 Blood, UA Negative Negative - 50 Jose/mcL pH, UA 7.0 5 - 9 Protein, UA Negative Negative - 1999(20) ++++ mg/dL Urobilinogen, UA 2.0 0.2 - 12 mg/dL Leukocytes, UA 3+ Negative - 500+++ Onel/mcL Nitrite, UA Negative Negative - Positive Urine 01/31/2025 2:25 PM EDT Maria M Guerrero NP POINT OF CARE TEST ENTER/EDIT ORDERABLES Final Result * US OB BPP W NON-STRESS (01/25/2025 6:24 PM EDT) Only the most recent of4 resultswithin the time period is included. Anatomical Region Laterality Modality Other 01/25/2025 6:24 PM EDT Narrative 01/25/2025 6:27 [place] [address] Ultrasound Report Signed Patient: OLENA GARCIA MR#: [id number] : 1995 Acct:[id number] Age/Sex: 29 / F ADM Date: 01/25/25 Loc: US Attending Dr: Rula Courtney D.O. Ordering Physician: Rula Courtney D.O. Date of Service: 01/25/25 Procedure(s): US OB BPP w non-stress Accession Number(s): [id number] cc: Rula Courtney D.O.; Physician,Non-Staff M.Nadir [address] [address] Patient Name: OLENA GARCIA MRN: [facility]:[id number] date: 1995 Sex: F Assigned Patient Location: [facility] Current Patient Location: US Accession/Order Number: [id number] Exam Date: 01/25/2025 16:50 Report Date: 01/25/2025 18:24 At the request of: RULA COURTNEY DO Procedure: US OB BPP w non-stress Ultrasound biophysical profile INDICATION: Abnormal biophysical profile 01/24/2025 FINDINGS: The tool honing machine set up operator reports a BPP of 8 out of 8 LONNY is normal at 10.9 cm. heart rate 134. Heterogeneous appearance of the placenta hypoechoic focus measuring 1.3 x 2.8 x 2.0 cm in size. US/US OB BPP w non-stress IMPRESSION: BPP 8 out of 8. Impression dictated by: Bernabe Romero M.D. 01/25/2025 6:24 PM Dictation Location: [place] [address] Electronically authenticated by: [id number] Y Date: 01/25/2025 18:24 Dictated By: Bernabe Romero M.D. Signed By: 01/25/251826 DD/ 23 TD/TT: Tire Stripper: Procedure Note Radiology, Radiologist, MD - 01/25/2025 [place] [address] Ultrasound Report Signed Patient: OLENA GARCIA RMR#: [id number] : 1995Acct:[id number] Age/Sex: 29 / FADM Date: 01/25/25 Loc: US Attending Dr: Rula Courtney D.O. Ordering Physician: Rula Courtney D.O. Date of Service: 01/25/25 Procedure(s): US OB BPP w non-stress Accession Number(s): [id number] cc: Rula Courtney D.O.; Physician,Non-Staff Steevn The [address] [address] Patient Name: OLENA GARCIA MRN: [facility]:[id number] date: 1995 Sex: F Assigned Patient Location: [facility] Current Patient Location: US Accession/Order Number: [id number] Exam Date: 01/25/2025 16:50 Report Date: 01/25/2025 18:24 At the request of: RULA COURTNEY DO Procedure: US OB BPP w non-stress Ultrasound biophysical profile INDICATION: Abnormal biophysical profile 01/24/2025 FINDINGS: The tool honing machine set up operator reports a BPP of 8 out of 8 LONNY is normal at10.9 cm. heart rate 134. Heterogeneous appearance of the placenta hypoechoic focus measuring 1.3 x 2.8 x 2.0 cm in size. US/US OB BPP w non-stress IMPRESSION: BPP 8 out of 8. Impression dictated by: Bernabe Romero M.D. 01/25/2025 6:24 PM Dictation Location: [place] [address] Electronically authenticated by: [id number] Y Date: 8:24 Dictated By: Bernabe Romero M.D. Signed By:01/25/251826 DD/ 23 TD/TT: Tire Stripper: us Rula Sherwin DO [facility] Final Result * (ABNORMAL) URINARY TRACT INFECTION (HTRX) (12/19/2024 11:28 AM EDT) Pathologist [facility] ACINETOBACTER BAUMANII 0 19.961 - 24.689 ppm 12/20/2024 7:51 AM EDT [facility] ACINETOBACTER BAUMANII Not Detected 19.961 - 24.689 ppm 12/20/2024 7:51 AM EDT [facility] CITROBACTER FREUNDII 0 23.000 - 32.015 ppm 12/20/2024 7:51 AM EDT [facility] CITROBACTER FREUNDII Not Detected 23.000 - 32.015 ppm 12/20/2024 7:51 AM EDT [facility] ENTEROBACTER AEROGENES, CLOACAE 0 23.000 - 32.290 ppm 12/20/2024 7:51 AM EDT [facility] ENTEROBACTER AEROGENES, CLOACAE Not Detected 23.000 - 32.290 ppm 12/20/2024 7:51 AM EDT [facility] ENTEROCOCCUS FAECALIS, FAECIUM 0 26.000 - 33.043 ppm 12/20/2024 7:51 AM EDT [facility] ENTEROCOCCUS FAECALIS, FAECIUM Not Detected 26.000 - 33.043 ppm 12/20/2024 7:51 AM EDT [facility] ESCHERICHIA COLI 0 23.000 - 28.500 ppm 12/20/2024 7:51 AM EDT [facility] ESCHERICHIA COLI Not Detected 23.000 - 28.500 ppm 12/20/2024 7:51 AM EDT [facility] KLEBSIELLA PNEUMONIAE, OXYTOCA 0 23.000 - 31.865 ppm 12/20/2024 7:51 AM EDT [facility] KLEBSIELLA PNEUMONIAE, OXYTOCA Not Detected 23.000 - 31.865 ppm 12/20/2024 7:51 AM EDT [facility] MORGANELLA MORGANII 0 19.961 - 24.689 ppm 12/20/2024 7:51 AM EDT [facility] MORGANELLA MORGANII Not Detected 19.961 - 24.689 ppm 12/20/2024 7:51 AM EDT [facility] PROTEUS MIRABILIS, VULGARIS 0 23.000 - 28.500 ppm 12/20/2024 7:51 AM EDT [facility] PROTEUS MIRABILIS, VULGARIS Not Detected 23.000 - 28.500 ppm 12/20/2024 7:51 AM EDT [facility] PSEUDOMONAS AERUGINOSA 0 23.000 - 31.801 ppm 12/20/2024 7:51 AM EDT [facility] PSEUDOMONAS AERUGINOSA Not Detected 23.000 - 31.801 ppm 12/20/2024 7:51 AM EDT [facility] STAPHYLOCOCCUS AUREUS 0 26.000 - 31.595 ppm 12/20/2024 7:51 AM EDT [facility] STAPHYLOCOCCUS AUREUS Not Detected 26.000 - 31.595 ppm 12/20/2024 7:51 AM EDT [facility] STREPTOCOCCUS AGALACTIAE (GROUP B STREP) 30.017(A) 26.000 - 32.435 ppm 12/20/2024 7:51 AM EDT [facility] STREPTOCOCCUS AGALACTIAE (GROUP B STREP) Detected(A) 26.000 - 32.435 ppm 12/20/2024 7:51 AM EDT [facility] PRESTON ALBICANS, PARAPSILOSIS, TROPICALIS 0 23.000 - 30.347 ppm 12/20/2024 7:51 AM EDT [facility] PRESTON ALBICANS, PARAPSILOSIS, TROPICALIS Not Detected 23.000 - 30.347 ppm 12/20/2024 7:51 AM EDT [facility] PRESTON GLABRATA 0 23.000 - 31.618 ppm 12/20/2024 7:51 AM EDT [facility] PRESTON GLABRATA Not Detected 23.000 - 31.618 ppm 12/20/2024 7:51 AM EDT [facility] PRESTON KRUSEI 0 23.000 - 30.873 ppm 12/20/2024 7:51 AM EDT [facility] PRESTON KRUSEI Not Detected 23.000 - 30.873 ppm 12/20/2024 7:51 AM EDT [facility] SERRATIA MARCESCENS 0 23.000 - 31.581 ppm 12/20/2024 7:51 AM EDT [facility] SERRATIA MARCESCENS Not Detected 23.000 - 31.581 ppm 12/20/2024 7:51 AM EDT [facility] STREPTOCOCCUS PYOGENES (GROUP A STREP) 0 19.961 - 24.689 ppm 12/20/2024 7:51 AM EDT [facility] STREPTOCOCCUS PYOGENES (GROUP A STREP) Not Detected 19.961 - 24.689 ppm 12/20/2024 7:51 AM EDT [facility] STAPHYLOCOCCUS EPIDERMIDIS, HAEMOLYTICUS, LUGDUNENSIS, SAPROPHYTICUS (URINA 0 19.961 - 24.689 ppm 12/20/2024 7:51 AM EDT [facility] STAPHYLOCOCCUS EPIDERMIDIS, HAEMOLYTICUS, LUGDUNENSIS, SAPROPHYTICUS (URINA Not Detected 19.961 - 24.689 ppm 12/20/2024 7:51 AM EDT [facility] STAPHYLOCOCCUS EPIDERMIDIS, HAEMOLYTICUS, LUGDUNENSIS, SAPROPHYTICUS (URINA 0 19.961 - 24.689 ppm 12/20/2024 7:51 AM EDT [facility] STAPHYLOCOCCUS EPIDERMIDIS, HAEMOLYTICUS, LUGDUNENSIS, SAPROPHYTICUS (URINA Not Detected 19.961 - 24.689 ppm 12/20/2024 7:51 AM EDT [facility] Urine 12/19/2024 11:2 8 AM EDT 12/20/2024 1:37 AM EDT us Rula Courtney DO LAB BLOOD ORDERABLES Final Resul t [facility] [address] [address] * US OB follow up transabdominal approach [...] II, MD, PHD at 22-Dec-2024 08:03:51 AM [facility] Procedure Note Toñito Friend MD - [...] signed by TOÑITO FRIEND II, MD, PHD [id number] 08:03:51 AM [facility] Rula Courtney DO [facility] [place] US PROCEDURES Final Resul t * GLUCOSE TOLERANCE 3 HOUR (12/06/2024 11:26 AM EDT) GLUCOSE TOLERANCE 3 HOUR mg/dL [facility] Comment: GLU FAST 90 (<95) Col: 12/06/24 1126 GLU 1HR 143 (<180) Col: 12/06/24 1235 GLU 2HR 132 (<155) Col: 12/06/24 1327 GLU 3HR 81 (<140) Col: 12/06/24 1432 12/06/2024 11:2 6 AM EDT 12/06/2024 11:35 AM EDT Narrative [facility] - 12/06/2024 3:13 PM EDT us Rula Sherwin DO LAB BLOOD ORDERABLES Final Resul t [facility] TB * (ABNORMAL) GLUCOSE 1 HOUR (11/26/2024 10:03 AM EDT) GLUCOSE 1 HOUR 156(H) <130 mg/dL [facility] 11/26/2024 10:0 3 AM EDT 11/26/2024 10:04 AM EDT Narrative [facility] - 11/26/2024 10:27 AM EDT [place] [employer] DO LAB BLOOD ORDERABLES Final Resul t [facility] TB * (ABNORMAL) ALL CBC WITH AUTO DIFF (11/26/2024 10:03 AM EDT) Pathologist [facility] TB WBC 9.2 4.0 - 11.0 10 3/uL TBH TBH RBC 4.32 4.20 - 5.40 10 6/uL [facility]H TBH HGB 13.6 12.0 - 16.0 g/dL TB TB HCT 38.9 36.0 - 48.0 % TBH TB MCV 90.0 81.0 - 99.0 fL TBH [...] Rula Sherwin DO [facility] Final Result [facility] from Last 3 Months Insurance [employer]
--- OUTSIDE RECORDS SUMMARY | 2025-01-31 21:08 | XMS_ITS | Encounter Summary ---
Author Organization [facility] Address [address] [place] [address] Care Team Providers Care Asbestos Wire Finisher Name Role Phone Unavailable Primary Care Provider Unavailabl e Encounter Details Date Type Department Care Team (Late st Contact Info) Description 04/13/2023 Clinisync Result Encounter NOMS External Department Unsolicited Rula Courtney DO [address] [place] [address] 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 Tobacco Use Types [...] PM EDT Routine [facility] David ZACARIAS [address] [place] [place] [address] Maria M Guerrero, MARGARITO [address] [place] [address] documented as of this encounter Procedures Procedure Name Priority Date/Time Associated Diagnosis Comments FL HYSTEROSALPINGOGRAM 10:54 AM EST documented in this encounter Results * FL HYSTEROSALPINGOGRAM (04/13/2023 10:54 AM EST) Anatomical Region Laterality Modality Other 04/13/2023 10:5 4 AM EST Narrative 04/13/2023 10:56 [place] [address] Fluoroscopy Report Signed Patient: OLENA PEREYRA MR#: [id number] : 1995 Acct:[id number] Age/Sex: 27 / F ADM Date: 04/10/23 Loc: LAB Attending Dr: Rula Courtney D.O. Ordering Physician: Rula Courtney D.O. Date of Service: 04/10/23 Procedure(s): FL Hysterosal cath placement Accession Number(s): [id number] cc: Rula Courtney D.O.; Physician,Non-Staff [facility] [place] [id number] Patient Name: OLENA PEREYRA MRN: [id number] date: 1995 Sex: F Assigned Patient Location: LAB Current Patient Location: LAB Accession/Order Number: [id number] Exam Date: 04/10/2023 14:30 Report Date: 04/13/2023 10:54 At the request of: RULA COURTNEY Procedure: FL Hysterosal cath placement EXAM: FL Hysterosal cath placement HISTORY: Infertility TECHNIQUE: FINDINGS: Please see Operative Report. Electronically authenticated by: DARRYN LONDON Date: 04/13/2023 10:54 Dictated By: Darryn London Signed By: 04/13/23 1056 DD/ 1054 TD/TT: Piano Bench Assembler: Procedure Note Radiology, Radiologist, MD - 04/13/2023 [place] [address] Fluoroscopy Report Signed Patient: OLENA PEREYRA RMR#: [id number] : 1995Acct:[id number] Age/Sex: 27 / FADM Date: 04/10/23 Loc: LAB Attending Dr: Rula Courtney D.O. Ordering Physician: Rula Courtney D.O. Date of Service: 04/10/23 Procedure(s): FL Hysterosal cath placement Accession Number(s): [id number] cc: Rula Courtney D.O.; Physician,Non-Staff [facility] [place] [id number] Patient Name: OLENA PEREYRA MRN: [id number] date: 1995 Sex: F Assigned Patient Location: LAB Current Patient Location: LAB Accession/Order Number: [id number] Exam Date: 04/10/2023 14:30 Report Date: 04/13/2023 10:54 At the request of: RULA COURTNEY Procedure: FL Hysterosal cath placement EXAM: FL Hysterosal cath placement HISTORY: Infertility TECHNIQUE: FINDINGS: Please see Operative Report. Electronically authenticated by: DARRYN LONDON Date: 04/13/2023 10:54 Dictated By: Darryn London Signed By:04/13/23 1056 DD/ 1054 TD/TT: Piano Bench Assembler: us Rula Courtney DO [facility] Final Result documented in this encounter Visit Diagnoses Not on filedocumented in this encounter
--- OUTSIDE RECORDS SUMMARY | 2025-01-31 21:08 | XMS_ITS | Encounter Summary ---
Author Organization [facility] Address [address] [place] [address] Phone Care Team Providers Care Geospatial Imagery Intelligence Analyst Name Role Phone Allyssa Robles RN Unavailable Unavailable Encounter Details Date Type Department Care Team (Late st Contact Info) Description 06/30/2024 Lab Requisition [facility] [address] [place] [address] Leigh Ann Tuttle MD [address] [facility] [place], [address] [id number] Female infertility, unspecified 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 Tobacco Use [...] LAB IMMUNOASSAY METHOD 06/30/2024 10:41 AM EST [facility] Comment:Low-level positive H CG results can [...] AM EST 06/30/2024 10:01 AM EST Narrative [facility] - 06/30/2024 10:41 AM EST Total HCG measurement is performed using the [employer] Access Immunoassay which detects intact HCG and free beta HCG subunit. This test is not indicated for use as a tumor marker. HCG testing is performed using a different test methodology at [facility] than other [facility]. Direct result comparison should only be made within the same method. us Leigh Ann Tuttle MD LAB BLOOD ORDERABLES Final Re sult [facility] [address] [place] [address] documented in this encounter Visit Diagnoses Diagnosis Female infertility, unspecified documented in this encounter Care Teams Geospatial Imagery Intelligence Analyst Relationship Specialty Start Date End Date Allyssa Robles, MISHEL Registered Nurse Reproductive Endocrinology and Infertility 12/25/23 documented as of this encounter
--- OUTSIDE RECORDS SUMMARY | 2025-01-31 21:08 | XMS_ITS | Encounter Summary ---
Author Organization [facility] Address [address] [place] [address] Phone Care Team Providers Care Sas Programmer Name Role Phone Allyssa Robles RN Unavailable Unavailable Encounter Details Date Type Department Care Team (Late st Contact Info) Description 06/13/2024 Lab Requisition [facility] [address] [place] [address] Juan Chavarria MD [address] [facility] [place], [address] [phone] Female infertility, unspecified 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 Tobacco Use [...] IMMUNOASSAY METHOD 06/13/2024 2:07 PM EST [facility] Blood Venous blood specimen / Unknown 06/13/2024 11:38 AM EST 06/13/2024 12:46 PM EST Narrative [facility] - 06/13/2024 2:07 PM EST REF VALUES Male <0.2-0.8 Follicular Phase <0.2-1.5 Luteal Phase 7.4-15.4 Post Menopausal <0.2-0.2 1ST Trimester 12.0-84.0 2ND Trimester 10.2-58.8 3RD Trimester 46.5-160 Progesterone is performed using the Faith [place] Access Immunoassay. Progesterone testing is performed using a different test methodology at [facility] than other [facility]. Direct result comparison should only be made within the same method. us Juan Chavarria MD LAB BLOOD ORDERABLES Final R esult [facility] [address] [place] [address] documented in this encounter Visit Diagnoses Diagnosis Female infertility, unspecified documented in this encounter Care Teams Sas Programmer Relationship Specialty Start Date End Date Allyssa Robles, RN Registered Nurse Reproductive Endocrinology and Infertility 12/25/23 documented as of this encounter
--- OUTSIDE RECORDS SUMMARY | 2025-01-31 21:08 | XMS_ITS | Encounter Summary ---
Author Organization [facility] Address [address] [place] [address] Phone Care Team Providers Care Childcare Center Administrator Name Role Phone Allyssa Robles RN Unavailable Unavailable Encounter Details Date Type Department Care Team (Late st Contact Info) Description 06/23/2024 [place] [facility] [place] [address] [place] [address] Juan Chavarria MD 1000 [facility] [place], [address] [id number] Encounter for test, result unknown 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 [...] HCG measurement is performed using the Faith Clearbrook Access Immunoassay which detects intact HCG and free beta HCG subunit. This test is not indicated for use as a tumor marker. HCG testing is performed using a different test methodology at [facility] than other legacy [facility]. Direct result comparison should only be made within the same method. us Juan Chavarria MD LAB BLOOD ORDERABLES Final R esult [facility] [address] [place] [phone] documented in this encounter Visit Diagnoses Diagnosis Encounter for test, result unknown documented in this encounter Care Teams Childcare Center Administrator Relationship Specialty Start Date End Date Allyssa Robles, RN Registered Nurse Reproductive Endocrinology and Infertility 12/25/23 documented as of this encounter
--- OUTSIDE RECORDS SUMMARY | 2025-01-31 21:08 | XMS_ITS | Encounter Summary ---
Author Organization [facility] Address [address] [place] [address] Care Team Providers Care Research Professional Name Role Phone Unavailable Primary Care Provider Unavailabl e Encounter Details Date Type Department Care Team (Late st Contact Info) Description 01/22/2024 Abstract [facility] Yanira ZACARIAS [address] [place] [address] Layo Courtney DO 102 [facility] [place] [address] 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 Tobacco Use Types Packs/Day [...] 1:40 PM EDT Routine NOMKenisha ZACARIAS [address] [place] [address] Maria M Guerrero, MARGARITO [address] [facility] [place] [address] documented as of this encounter Visit Diagnoses Not on filedocumented in this encounter
--- OUTSIDE RECORDS SUMMARY | 2025-01-31 21:08 | XMS_ITS | Encounter Summary ---
Author Organization [facility] Address [address] [address] Phone Care Team Providers Care Floor Finisher Helper Name Role Phone Allyssa Robles RN Unavailable Unavailable Encounter Details Date Type Department Care Team (Late st Contact Info) Description 06/23/2024 Lab Requisition [facility] [address] [place] [address] America Chavez, PARK SERVICES SPECIALIST-TAILORING TEACHER [address] [place] [address] Female infertility, unspecified 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 Tobacco Use [...] Hold for add-ons. 06/23/2024 10:02 AM EST [facility] Comment:Auto resulted. Blood Venous blood specimen / Unknown 06/23/2024 7:53 AM EST 06/23/2024 8:35 AM EST America Chavez [facility] BLOOD ORDERABLES Final Result Performing Organization Address City/[facility]/ZIP Co de Phone Number [facility] [address] [place], [place] [phone] * Phleb Charge - Venipuncture (Lab Use Only) (06/23/2024 7:53 AM EST) Blood Venous blood specimen / Unknown 06/23/2024 7:53 AM EST 06/23/2024 8:35 AM EST America Chavez [facility] LAB BLOOD ORDERABLES Final Result Performing Organization Address City/[facility]/ZIP Co de Phone Number [facility] [address] [place] [phone] * Estradiol (06/23/2024 7:53 AM EST) Estradiol 378 pg/mL LAB IMMUNOASSAY METHOD 06/23/2024 9:14 AM EST [facility] Blood Venous blood specimen / Unknown 06/23/2024 7:53 AM EST 06/23/2024 8:35 AM EST Narrative [facility] - 06/23/2024 9:14 AM EST REF VALUES FOLLICULAR PHASE 20-144 MID CYCLE 64-357 LUTEAL PHASE 56-214 POSTMENOPAUSE < 32 PREPUBERTY < 20 FEMALE 10-18Y 8-110 MALE 10-18Y < 20 ADULT MALE < 40 Estradiol measurement is performed using the Faith Cristopher Access Estradiol Immunoassay. Estradiol testing is performed using a different test methodology at [facility] than other [facility]. Direct result comparison should only be made within the same method. Americaroxy Chavez PARK SERVICES SPECIALISTKoolanoo GroupTAILORING TEACHER LAB BLOOD ORDERABLES Final Result Performing Organization Address City/[facility]/ZIP Co de Phone Number [facility] [address] [place] [address] * Progesterone (06/23/2024 7:53 AM EST) [facility] Progesterone 42.6 ng/mL LAB IMMUNOASSAY METHOD 06/23/2024 10:10 AM EST [facility] Blood Venous blood specimen / Unknown 06/23/2024 7:53 AM EST 06/23/2024 8:35 AM EST Narrative [facility] - 06/23/2024 10:10 AM EST REF VALUES Male <0.2-0.8 Follicular Phase <0.2-1.5 Luteal Phase 7.4-15.4 Post Menopausal <0.2-0.2 1ST Trimester 12.0-84.0 2ND Trimester 10.2-58.8 3RD Trimester 46.5-160 Progesterone is performed using the Faith TriNovus Access Immunoassay. Progesterone testing is performed using a different test methodology at [facility] than other [facility]. Direct result comparison should only be made within the same method. Americaroxy Chavez PARK SERVICES SPECIALISTKoolanoo GroupTAILORING TEACHER LAB BLOOD ORDERABLES Final Result Performing Organization Address City/[facility]/ZIP Co de Phone Number [facility] [id number] [place] [phone] documented in this encounter Visit Diagnoses Diagnosis Female infertility, unspecified documented in this encounter Care Teams Floor Finisher Helper Relationship Specialty Start Date End Date Allyssa Robles, RN Registered Nurse Reproductive Endocrinology and Infertility 12/25/23 documented as of this encounter
--- OUTSIDE RECORDS SUMMARY | 2025-01-31 21:08 | XMS_ITS | Encounter Summary ---
Author Organization [facility] Address [address] [place] [address] Care Team Providers Care Combination Presser Name Role Phone Unavailable Primary Care Provider Unavailabl e Encounter Details Date Type Department Care Team (Late st Contact Info) Description 11/18/2024 Abstract [facility] Yanira ZACARIAS [address] [place] [address] Layo Courtney DO [address] [facility] [place] [address] 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 [...] Description 02/07/2025 1:40 PM EDT Routine [facility] Yanira ZACARIAS [address] [place] [address] Maria M Guerrero NP [address] [facility] [place] [address] documented as of this encounter Visit Diagnoses Not on filedocumented in this encounter
--- OUTSIDE RECORDS SUMMARY | 2025-01-31 21:08 | XMS_ITS | Encounter Summary ---
Author Organization [facility] Address [address] [place] [address] [place] [address] Care Team Providers Care Business Liaison Officer Name Role Phone Unavailable Primary Care Provider Unavailabl e Encounter Details Date Type Department Care Team (Late st Contact Info) Description 03/23/2023 Abstract [facility] Yanira ZACARIAS [address] [facility] [place] [address] Cassy Licea LPN 102 [facility] [place] [address] 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 Tobacco Use [...] 1:40 PM EDT Routine NOMKenisha ZACARIAS [address] [facility] [place] [address] Maria M Guerrero, MARGARITO [address] [place] [address] documented as of this encounter Visit Diagnoses Not on filedocumented in this encounter
--- OUTSIDE RECORDS SUMMARY | 2025-01-31 21:08 | XMS_ITS | Encounter Summary ---
Author Organization [facility] Address [address] [place] [address] Phone Care Team Providers Care Edge Runner Name Role Phone Allyssa Robles RN Unavailable Unavailable Encounter Details Date Type Department Care Team (Late st Contact Info) Description 06/06/2024 Lab Requisition [facility] [address] [place] [address] America Chavez, COMPUTED TOMOGRAPHY TECHNICIAN-RAIL CAR UNLOADER [address] [place] [address] Female infertility, unspecified 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 Tobacco Use [...] AM EST [facility] Blood Venous blood specimen / Unknown 06/06/2024 7:00 AM EST 06/06/2024 10:58 AM EST Narrative [facility] - 06/06/2024 11:56 AM EST REF VALUES FOLLICULAR PHASE 20-144 MID CYCLE 64-357 LUTEAL PHASE 56-214 POSTMENOPAUSE < 32 PREPUBERTY < 20 FEMALE 10-18Y 8-110 MALE 10-18Y < 20 ADULT MALE < 40 America Chavez COMPUTED TOMOGRAPHY TECHNICIAN-RAIL CAR UNLOADER LAB BLOOD ORDERABLES Final Result [facility] [address] [place] [phone] * Progesterone (06/06/2024 7:00 AM EST) Progesterone 0.8 ng/mL LAB IMMUNOASSAY METHOD 06/10/2024 8:43 PM EST [facility] Comment: Blood Venous blood specimen / Unknown 06/06/2024 7:00 AM EST 06/06/2024 10:58 AM EST Narrative [facility] - 06/10/2024 8:43 PM EST REF VALUES Male <0.2-0.8 Follicular Phase <0.2-1.5 Luteal Phase 7.4-15.4 Post Menopausal <0.2-0.2 1ST Trimester 12.0-84.0 2ND Trimester 10.2-58.8 3RD Trimester 46.5-160 Progesterone is performed using the [employer] Access Immunoassay. Progesterone testing is performed using a different test methodology at [facility] other [facility]. Direct result comparison should only be made within the same method. America Chavez COMPUTED TOMOGRAPHY TECHNICIAN-RAIL CAR UNLOADER LAB BLOOD ORDERABLES Edite d Result - Final [facility] [address] [place] [phone] documented in this encounter Visit Diagnoses Diagnosis Female infertility, unspecified documented in this encounter Care Teams Edge Runner Relationship Specialty Start Date End Date Allyssa Robles, RN Registered Nurse Reproductive Endocrinology and Infertility 12/25/23 documented as of this encounter
--- OUTSIDE RECORDS SUMMARY | 2025-01-31 21:08 | XMS_ITS | Encounter Summary ---
Author Organization [facility] Address [address] [place] [address] Care Team Providers Care Director Of Community Education Name Role Phone Unavailable Primary Care Provider Unavailabl e Encounter Details Date Type Department Care Team (Late st Contact Info) Description 08/02/2024 Abstract [facility] Yanira ZACARIAS [address] [place] [address] Layo Courtney DO [address] [place] [address] 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 [...] PM EDT Routine [facility] Yanira ZACARIAS [address] [place] [address] Maria M Guerrero NP [address] [facility] [address] documented as of this encounter Visit Diagnoses Not on filedocumented in this encounter
--- OUTSIDE RECORDS SUMMARY | 2025-01-31 21:08 | XMS_ITS | Encounter Summary ---
Author Organization [facility] Address [address] [place] [address] Care Team Providers Care Photolith Operator Name Role Phone Unavailable Primary Care Provider Unavailabl e Encounter Details Date Type Department Care Team (Late st Contact Info) Description 01/31/2025 Bamboo flowsheet [facility] Yanira ZACARIAS [address] [facility] [place] [address] Maria M Guerrero, E COMMERCE DEVELOPER [address] [facility] [place] [address] 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 Tobacco Use Types Packs/Day Years [...] PM EDT Routine [facility] Yanira ZACARIAS [address] [place] [address] Maria M Guerrero, MARGARITO [address] [place] [address] documented as of this encounter Visit Diagnoses Not on filedocumented in this encounter
--- OUTSIDE RECORDS SUMMARY | 2025-01-31 21:08 | XMS_ITS | Encounter Summary ---
Author Organization [facility] Address [address] [place] [address] Care Team Providers Care Carrot Harvester Name Role Phone Unavailable Primary Care Provider Unavailabl e Encounter Details Date Type Department Care Team (Late st Contact Info) Description 09/21/2024 Abstract [facility] Yanira ZACARIAS [address] [place] [address] Layo Courtney DO [address] [facility] [place] [address] 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 Tobacco Use Types [...] PM EDT Routine [facility] Yanira ZACARIAS [address] [place] [address] Maria M Guerrero NP [address] [facility] [place] [address] documented as of this encounter Visit Diagnoses Not on filedocumented in this encounter
--- OUTSIDE RECORDS SUMMARY | 2025-01-31 21:08 | XMS_ITS | Encounter Summary ---
Author Organization [facility] Address [address] [place] [address] Care Team Providers Care Planning Official Name Role Phone Unavailable Primary Care Provider Unavailabl e Encounter Details Date Type Department Care Team (Late st Contact Info) Description 01/25/2025 Clinisync Result Encounter NOMS External Department Unsolicited Rula Courtney DO [address] [place] [address] 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 Tobacco Use Types [...] PM EDT Routine [facility] [address] [place] [address] Maria M Guerrero, MARGARITO [address] [facility] [place] [address] documented as of this encounter Procedures Procedure Name Priority Date/Time Associated Diagnosis Comments US OB BPP W NON-STRESS 01/25/2025 6:24 PM EDT documented in this encounter Results * US OB BPP W NON-STRESS (01/25/2025 6:24 PM EDT) Anatomical Region Laterality Modality Other 01/25/2025 6:24 PM EDT Narrative 01/25/2025 6:27 PM EDT [address] [address] Ultrasound Report Signed Patient: OLENA GARCIA MR#: [id number] : 1995 Acct:[id number] Age/Sex: 29 / F ADM Date: 01/25/25 Loc: US Attending Dr: Rula Courtney D.O. Ordering Physician: Rula Courtney D.O. Date of Service: 01/25/25 Procedure(s): US OB BPP w non-stress Accession Number(s): [id number] cc: Rula Courtney D.O.; Physician,Non-Staff Steven [address] [address] Patient Name: OLENA GARCIA MRN: [id number] date: 1995 Sex: F Assigned Patient Location: [facility] Current Patient Location: US Accession/Order Number: [id number] Exam Date: 01/25/2025 16:50 Report Date: 01/25/2025 18:24 At the request of: RULA COURTNEY DO Procedure: US OB BPP w non-stress Ultrasound biophysical profile INDICATION: Abnormal biophysical profile 01/24/2025 FINDINGS: The mica paster reports a BPP of 8 out of 8 LONNY is normal at 10.9 cm. heart rate 134. Heterogeneous appearance of the placenta hypoechoic focus measuring 1.3 x 2.8 x 2.0 cm in size. US/US OB BPP w non-stress IMPRESSION: BPP 8 out of 8. Impression dictated by: Bernabe Romero M.D. 01/25/2025 6:24 PM Dictation Location: [place] [address] Electronically authenticated by: [id number] Y Date: 01/25/2025 18:24 Dictated By: Bernabe Romero M.D. Signed By: 01/25/251826 DD/ 23 TD/TT: Spinning Operator: Procedure Note Radiology, Radiologist, MD - 01/25/2025 [place] [id number] Ultrasound Report Signed Patient: OLENA GARCIA RMR#: [id number] : 1995Acct:[id number] Age/Sex: 29 / FADM Date: 01/25/25 Loc: US Attending Dr: Rula Courtney D.O. Ordering Physician: Rula Courtney D.O. Date of Service: 01/25/25 Procedure(s): US OB BPP w non-stress Accession Number(s): [id number] cc: Rula Courtney D.O.; Physician,Non-Staff Steven [address] [place] [id number] Patient Name: OLENA GARCIA MRN: [id number] date: 1995 Sex: F Assigned Patient Location: [facility] Current Patient Location: US Accession/Order Number: [id number] Exam Date: 01/25/2025 16:50 Report Date: 01/25/2025 18:24 At the request of: RULA COURTNEY DO Procedure: US OB BPP w non-stress Ultrasound biophysical profile INDICATION: Abnormal biophysical profile 01/24/2025 FINDINGS: The mica paster reports a BPP of 8 out of 8 LONNY is normal at10.9 cm. heart rate 134. Heterogeneous appearance of the placenta hypoechoic focus measuring 1.3 x 2.8 x 2.0 cm in size. US/US OB BPP w non-stress IMPRESSION: BPP 8 out of 8. Impression dictated by: Bernabe Romero M.D. 01/25/2025 6:24 PM Dictation Location: [place] [address] Electronically authenticated by: [id number] Y Date: 8:24 Dictated By: Bernabe Romero M.D. Signed By:01/25/251826 DD/ 23 TD/TT: Spinning Operator: us Rula Courtney DO [facility] Final Result documented in this encounter Visit Diagnoses Not on filedocumented in this encounter
--- OUTSIDE RECORDS SUMMARY | 2025-01-31 21:08 | XMS_ITS | Encounter Summary ---
Author Organization [facility] Address [address] [place] [address] Care Team Providers Care Supervisor Finishing Department Name Role Phone Unavailable Primary Care Provider Unavailabl e Encounter Details Date Type Department Care Team (Late st Contact Info) Description 09/21/2024 Abstract [facility] Yanira ZACARIAS [address] [place] [address] Layo Courtney DO [address] [facility] [place] [address] 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 Tobacco Use Types [...] PM EDT Routine [facility] Yanira ZACARIAS [address] [place] [address] Maria M Guerrero NP [address] [facility] [place] [address] documented as of this encounter Visit Diagnoses Not on filedocumented in this encounter
--- OUTSIDE RECORDS SUMMARY | 2025-01-31 21:08 | XMS_ITS | Encounter Summary ---
Author Organization [facility] Address [address] [place] [address] Care Team Providers Care Fibrous Plasterer Name Role Phone Unavailable Primary Care Provider Unavailabl e Encounter Details Date Type Department Care Team (Late st Contact Info) Description 11/08/2024 Abstract [facility] Yanira ZACARIAS [address] [facility] [place] [address] Emilia Donahue MA 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 Tobacco [...] 1:40 PM EDT Routine NOMKenisha ZACARIAS [address] [facility] [place] [address] Maria M Guerrero, MARGARITO [address] [facility] [place] [address] documented as of this encounter Visit Diagnoses Not on filedocumented in this encounter
--- OUTSIDE RECORDS SUMMARY | 2025-01-31 21:08 | XMS_ITS ---
Author Organization [facility] Address [address] [place] [address] Phone Care Team Providers Care Bronze Chaser Name Role Phone Allyssa Robles RN Unavailable Unavailable Fertility Core Status:Enrolled (Active) Start date:02/24/2024 Enrollment date:02/29/2024 Enrollment reason:Identified from a specialty prescription Current support & services provided:Refill Management, Benefits and PA Management Linked medications:lidocaine/prilocaine (Active), progesterone (Active), transparent dressing () Continued Care and Services Coordination
== END 2025-01-31 21:05 | disposition home or self-care (01) ==
LOC: LAB 21:04
PROVIDERS: Visit Provider Nurse Practitioner Family
DX: Z34.93 Encounter for supervision of normal pregnancy, unspecified, third trimester (principal); Z3A.35 35 weeks gestation of pregnancy
CPT/HCPCS: 87081

== ENCOUNTER 2025-02-03 16:05 | Outpatient (OUT) | payer OTHER, SELFPAY ==
--- OUTSIDE RECORDS SUMMARY | 2025-02-03 16:11 | XMS_ITS | CCD ---
Author Organization [facility] Care Team Providers Care Merchant Patroller Name Role Phone Rachana LYONS Primary Care [...] BRANDY Attending Unavailable SISSY, BRANDY Attending Unavailable HSERWIN, LAYO Attending Unavailable SHERWIN, LAYO Attending Unavailable SHERWIN, LAYO Attending Unavailable SHERWIN, LAYO Attending Unavailable SHERWIN, LAYO Referring Unavailable SHERWIN, LAYO Attending Unavailable SHERWIN, LAYO Attending Unavailable SHERWIN, LAYO Attending Unavailable Allergies Allergy Classification Reported Allergen(s) Allergy Type Date of Onset Reaction(s) Facility (20 sources) Azithromycin; Translations: [azithromycin] Drug Allergy 03-16-2023 Unknown (qualifier value), Unknown [facility] Work Phone: (20 sources) Latex; Translations: [Latex] Drug allergy 03-16-2023 Rash [facility] Work Phone: (20 sources) nickel; Translations: [Nickel] Drug Allergy 03-16-2023 Rash, Itching [facility] Work Phone: Medications Current [...] tablet Indications: Pruritus of in second trimester ([facility]) Take 1 tablet (10 mg) by [...] Do not use to face, armpits, groin., [facility]/pharmacy #[id number], 162, cm, 10/02/23 11:23:00 EDT, Height/Length Dosing, 76.7, kg, 10/02/23 11:23:00 EDT, Weight Dosing Start Date: 10/02/23 Status: Ordered Start: 02-10-2022 clobetasol pro pionate 0.05% top oint 1 bonifacio, Topical, BID, 45 gram, Refill(s) 0, Apply a thin film to affected area. Do not use to face, armpits, groin., [facility], 160, cm, 07/24/21 17:02:00 EDT, Height/Length Dosing, 71.6, kg, 07/24/21 17:02:00 EDT, Weight Dosing Start Date: 02/10/22 Status: Ordered Start: 01-29-2021 clobetasol pro pionate 0.05% top oint 1 bonifacio, Topical, BID, 45 gram, Refill(s) 1, [facility] 1985, 160, cm, 01/29/21 [...] spasm, # 30 tab(s), Refills(s) 1, Pharmacy: [facility]/pharmacy #[id number], 162, cm, 02/19/23 7:51:00 EDT, [...] Refill(s) 6, Therapeutic tx; may refill early, [facility] 1986, 160, cm, 09/27/20 [...] Refill(s) 6, Therapeutic tx; may refill early, [facility], 160, cm, 09/27/20 [...] tablets Indications: Pruritus of in second trimester ([facility]) Day 1: 6 tablets Day 2: 5 tablets Day 3: 4 tablets Day 4: 3 tablets Day 5: 2 tablets Day 6: 1 tablet 21 tablet 10/04/2024 12/06/2024 Discontinued Start: 10-04-2024 methylPREDNISo lone (Medrol Dospak) 4 MG tablets Indications: Pruritus of in second trimester ([facility]) Day 1: 6 tablets Day 2: 5 [...] hour of each main meal containing fat, [facility] 1986, 160, cm, 07/24/21 17:02:00 [...] Take 1 each by mouth Daily Active [id number]-txu ic-omega3 29-1-400 mg combo pack,tablet and cap,DR (14 sources) zhmxozxy52-fqlg- f olic-omega3 29-1-400 mg combo pack,tablet and [...] Daily, # 90 tab(s), Refills(s) 3, Pharmacy: [facility]/pharmacy #[id number], 162, cm, 10/02/23 11:23:00 EDT, Height/Length Dosing, 76.7, kg, 10/02/23 11:23:00 EDT, Weight Dosing Start Date: 10/02/23 Status: Ordered Start: 08-27-2023 take 2 tablets by mo uth once daily Topamax 25 mg Tab 50 mg = 2 tab(s), Oral, Daily, # 180 tab(s), Refills(s) 0, Pharmacy: [facility]/pharmacy #[id number], 162, cm, 08/27/23 17:49:00 EDT, [...] 4-7, # 90 tab(s), Refills(s) 1, Pharmacy: [facility]/pharmacy #[id number], 162, cm, 02/19/23 7:51:00 EDT, [...] [33 weeks gestation of ] 01-16-2025 Episodic Residual codes; unclassified (2 sources) Gestation period, 35 weeks; Translations: [35 weeks gestation of ] 01-31-2025 Episodic Screening and history of mental health [...] episode since. Unclassified (5 sources) over heated 1 07-14-2013 Comment on above: 2 years ago when she would becomeoverheated shewould pass out and afterwards have a really bad headache. dr el give her medications for migraines, but pt wasnt had episode since. NEGATED: Highlighted row has been ruled out!Unclassified (20 sources) No known active problems 11-02-2023 Results Test Name Value Interpretation Reference Range Facility No Panel InformationOrdered By: Radiologist Radiology on 02-01-2025 [facility] Work Phone: No Panel Informationon 02-01 Radiology Study observation (narrative) [facility] US OB BPP W NON-STRESS on 02-01-[address] [address] Ultrasound Report Signed Patient: SYDNEY ROMERO MR#: [id number] : 1995 Acct:[id number] Age/Sex: 29 / F ADM Date: 01/31/25 Loc: US Attending Dr: Layo Courtney D.O. Ordering Physician: Layo Courtney D.O. Date of Service: 01/31/25 Procedure(s): US OB BPP w non-stress Accession Number(s): [id number] cc: Layo Courtney D.O.; Physician,Non-Staff Steven The [address] [address] Patient Name: SYDNEY ROMERO MRN: [facility]:[id number] date: 1995 Sex: F Assigned Patient Location: US Current Patient Location: LAB Accession/Order Number: [id number] Exam Date: 01/31/2025 15:22 Report Date: 02/01/2025 09:21 At the request of: LAYO COURTNEY DO Procedure: US OB BPP w non-stress CLINICAL DATA: resulting from IVF ULTRASOUND OB GROWTH COMPARISON: None There is a single live intrauterine gestation in cephalic presentation. There is cardiac and somatic activity with heart rate of 129 bpm. The amniotic fluid index measures 11.6 cm which is in low-normal range. There is an anterior placenta. The following measurements were obtained: Right parietal diameter 9.2 cm 37 weeks 2 days 89% Head circumference 33.6 cm 38 weeks 3 days 81% Abdominal circumference 32.8 cm 36 weeks 5 days 82% Femur length 7.2 cm 36 weeks 6 days 72% The composite ultrasound age based on these measurements is 37 weeks 0 days +/- 1 week 0 days. The estimated date of delivery is 02/21/2025. weight is estimated at 6 lbs. 13 oz. +/- 1 lb. 0 oz. (81%). US/US OB BPP w non-stress IMPRESSION: SINGLE LIVE INTRAUTERINE GESTATION WITH ULTRASOUND AGE OF 37 WEEKS 0 DAYS. BIOPHYSICAL PROFILE: COMPARISON: 01/25/2025 FINDINGS: TONE: 1 or more episodes of [...] greater than 2 cm [Y] 2/2 LONNY: 11.6 cm Total score: 8/8 IMPRESSION: NORMAL BIOPHYSICAL PROFILE Impression dictated by: Mariela Toledo M.D. 02/01/2025 9:21 AM Dictation Location: [place] [address] Electronically authenticated by: [id number] Y Date: 02/01/2025 09:21 Dictated By: Mariela Toledo M.D. Signed By: 02/01/25923 DD/ 0 TD/TT: Records Section Supervisor: [facility] Radiology, Radiologist, MD - 02/01/2025 [place] [address] Ultrasound Report Signed Patient: SYDNEY ROMERO MR#: [id number] : 1995 Acct:[id number] Age/Sex: 29 / F ADM Date: 01/31/25 Loc: US Attending Dr: Layo Courtney D.O. Ordering Physician: Layo Courtney D.O. Date of Service: 01/31/25 Procedure(s): US OB BPP w non-stress Accession Number(s): [id number] cc: Layo Courtney D.O.; Physician,Non-Staff Steven The [address] [address] Patient Name: SYDNEY ROMERO MRN: [facility]:[id number] date: 1995 Sex: F Assigned Patient Location: US Current Patient Location: LAB Accession/Order Number: [id number] Exam Date: 01/31/2025 15:22 Report Date: 02/01/2025 09:21 At the request of: LAYO COURTNEY DO Procedure: US OB BPP w non-stress CLINICAL DATA: resulting from IVF ULTRASOUND OB GROWTH COMPARISON: None There is a single live intrauterine gestation in cephalic presentation. There is cardiac and somatic activity with heart rate of 129 bpm. The amniotic fluid index measures 11.6 cm which is in low-normal range. There is an anterior placenta. The following measurements were obtained: Right parietal diameter 9.2 cm 37 weeks 2 days 89% Head circumference 33.6 cm 38 weeks 3 days 81% Abdominal circumference 32.8 cm 36 weeks 5 days 82% Femur length 7.2 cm 36 weeks 6 days 72% The composite ultrasound age based on these measurements is 37 weeks 0 days +/- 1 week 0 days. The estimated date of delivery is 02/21/2025. weight is estimated at 6 lbs. 13 oz. +/- 1 lb. 0 oz. (81%). US/US OB BPP w non-stress IMPRESSION: SINGLE LIVE INTRAUTERINE GESTATION WITH ULTRASOUND AGE OF 37 WEEKS 0 DAYS. BIOPHYSICAL PROFILE: COMPARISON: 01/25/2025 FINDINGS: TONE: 1 or more episodes of [...] greater than 2 cm [Y] 2/2 LONNY: 11.6 cm Total score: 8/8 IMPRESSION: NORMAL BIOPHYSICAL PROFILE Impression dictated by: Mariela Toledo M.D. 02/01/2025 9:21 AM Dictation Location: [place] [address] Electronically authenticated by: [id number] Y Date: 02/01/2025 09:21 Dictated By: Mariela Toledo M.D. Signed By: 02/01/25923 DD/ 0 TD/TT: Records Section Supervisor: [facility] OB GROWTHon 02-01-2025 [place] [id number] Ultrasound Report Signed Patient: SYDNEY ROMERO MR#: [id number] : 1995 Acct:[id number] Age/Sex: 29 / F ADM Date: 01/31/25 Loc: US Attending Dr: Layo Courtney D.O. Ordering Physician: Layo Courtney D.O. Date of Service: 01/31/25 Procedure(s): US OB growth Accession Number(s): [id number] cc: Layo Courtney D.O.; Physician,Non-Staff Steven [place] [address] Patient Name: SYDNEY ROMERO MRN: H:[id number] date: 1995 Sex: F Assigned Patient Location: [facility] Current Patient Location: LAB Accession/Order Number: [id number] Exam Date: 01/31/2025 15:22 Report Date: 02/01/2025 09:21 At the request of: LAYO COURTNEY DO Procedure: US OB BPP w non-stress CLINICAL DATA: resulting from IVF ULTRASOUND OB GROWTH COMPARISON: None There is a single live intrauterine gestation in cephalic presentation. There is cardiac and somatic activity with heart rate of 129 bpm. The amniotic fluid index measures 11.6 cm which is in low-normal range. There is an anterior placenta. The following measurements were obtained: Right parietal diameter 9.2 cm 37 weeks 2 days 89% Head circumference 33.6 cm 38 weeks 3 days 81% Abdominal circumference 32.8 cm 36 weeks 5 days 82% Femur length 7.2 cm 36 weeks 6 days 72% The composite ultrasound age based on these measurements is 37 weeks 0 days +/- 1 week 0 days. The estimated date of delivery is 02/21/2025. weight is estimated at 6 lbs. 13 oz. +/- 1 lb. 0 oz. (81%). US/US OB growth IMPRESSION: SINGLE LIVE INTRAUTERINE GESTATION WITH ULTRASOUND AGE OF 37 WEEKS 0 DAYS. BIOPHYSICAL PROFILE: COMPARISON: 01/25/2025 FINDINGS: TONE: 1 or more episodes of [...] greater than 2 cm [Y] 2/2 LONNY: 11.6 cm Total score: 8/8 IMPRESSION: NORMAL BIOPHYSICAL PROFILE Impression dictated by: Mariela Toledo M.D. 02/01/2025 9:21 AM Dictation Location: [place] [address] Electronically authenticated by: [id number] Y Date: 02/01/2025 09:21 Dictated By: Mariela Toledo M.D. Signed By: 02/01/25923 DD/ 0 TD/TT: Records Section Supervisor: [facility] Radiology, Radiologist, MD - 02/01/2025 [place] [address] Ultrasound Report Signed Patient: SYDNEY ROMERO MR#: [id number] : 1995 Acct:[id number] Age/Sex: 29 / F ADM Date: 01/31/25 Loc: US Attending Dr: Layo Courtney D.O. Ordering Physician: Layo Courtney D.O. Date of Service: 01/31/25 Procedure(s): US OB growth Accession Number(s): [id number] cc: Layo Courtney D.O.; Physician,Non-Staff Steven The [place] [address] Patient Name: SYDNEY ROMERO MRN: [facility]:[id number] date: 1995 Sex: F Assigned Patient Location: [facility] Current Patient Location: LAB Accession/Order Number: [id number] Exam Date: 01/31/2025 15:22 Report Date: 02/01/2025 09:21 At the request of: LAYO COURTNEY DO Procedure: US OB BPP w non-stress CLINICAL DATA: resulting from IVF ULTRASOUND OB GROWTH COMPARISON: None There is a single live intrauterine gestation in cephalic presentation. There is cardiac and somatic activity with heart rate of 129 bpm. The amniotic fluid index measures 11.6 cm which is in low-normal range. There is an anterior placenta. The following measurements were obtained: Right parietal diameter 9.2 cm 37 weeks 2 days 89% Head circumference 33.6 cm 38 weeks 3 days 81% Abdominal circumference 32.8 cm 36 weeks 5 days 82% Femur length 7.2 cm 36 weeks 6 days 72% The composite ultrasound age based on these measurements is 37 weeks 0 days +/- 1 week 0 days. The estimated date of delivery is 02/21/2025. weight is estimated at 6 lbs. 13 oz. +/- 1 lb. 0 oz. (81%). US/ OB growth IMPRESSION: SINGLE LIVE INTRAUTERINE GESTATION WITH ULTRASOUND AGE OF 37 WEEKS 0 DAYS. BIOPHYSICAL PROFILE: COMPARISON: 01/25/2025 FINDINGS: TONE: 1 or more episodes of [...] greater than 2 cm [Y] 2/2 LONNY: 11.6 cm Total score: 8/8 IMPRESSION: NORMAL BIOPHYSICAL PROFILE Impression dictated by: Mariela Toledo M.D. 02/01/2025 9:21 AM Dictation Location: [place] [address] Electronically authenticated by: [id number] Y Date: 02/01/2025 09:21 Dictated By: Mariela Toledo M.D. Signed By: 02/01/25923 DD/ 0 TD/TT: Records Section Supervisor: [facility] Urinalysis macro (dipstick) panel (U)on 01-31-2025 Bilirubin, UA Negative Negative - 4(70) +++ mg/dL [facility] Blood, UA Negative Negative - 50 Jose/mcL [facility] Clarity, UA Clear [facility] Color, UA Yellow [facility] Glucose, UA Negative Negative - 2000(110) ++++ mg/dL [facility] Interpretation and review of laboratory results Abnormal [facility] Ketones, UA Negative Negative - 160(16) ++++ mg/dL [facility] Leukocytes, UA 3+ Negative - 500+++ Onel/mcL [facility] Nitrite, UA Negative Negative - Positive [facility] pH, UA 7 5 - 9 [facility] Protein, UA Negative Negative - 2000(20) ++++ mg/dL [facility] Spec Grav, UA 1.01 1 - 1.03 [facility] Urobilinogen, UA 2.0 0.2 - 12 mg/dL [facility] US OB BPP W NON-STRESS on 01-25-2025 [place] [address] Ultrasound Report Signed Patient: SYDNEY ROMERO MR#: [id number] : 1995 Acct:[id number] Age/Sex: 29 / F ADM Date: 01/25/25 Loc: US Attending Dr: Layo Courtney D.O. Ordering Physician: Layo Courtney D.O. Date of Service: 01/25/25 Procedure(s): US OB BPP w non-stress Accession Number(s): [id number] cc: Layo Courtney D.O.; Physician,Non-Staff M.DBetito [place] [id number] Patient Name: SYDNEY ROMERO MRN: [facility]:[id number] date: 1995 Sex: F Assigned Patient Location: 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 heart rate 134. Heterogeneous appearance of the placenta hypoechoic focus measuring 1.3 x 2.8 x 2.0 cm in size. US/US OB BPP w non-stress IMPRESSION: BPP 8 out of 8. Impression dictated by: Bernabe Romero M.D. 01/25/2025 6:24 PM Dictation Location: [place] [address] Electronically authenticated by: [id number] Y Date: 01/25/2025 18:24 Dictated By: Bernabe Romero M.D. Signed By: 01/25/251826 DD/ 23 TD/TT: Records Section Supervisor: [facility] Radiology, Radiologist, MD - 01/25/2025 [place] [address] Ultrasound Report Signed Patient: SYDNEY ROMERO MR#: [id number] : 1995 Acct:[id number] Age/Sex: 29 / F ADM Date: 01/25/25 Loc: US Attending Dr: Layo Courtney D.O. Ordering Physician: Layo Courtney D.O. Date of Service: 01/25/25 Procedure(s): US OB BPP w non-stress Accession Number(s): [id number] cc: Layo Courtney D.O.; Physician,Non-Staff Steven The [place] [id number] Patient Name: SYDNEY ROMERO MRN: [facility]:[id number] date: 1995 Sex: F Assigned Patient Location: 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 heart rate 134. Heterogeneous appearance of the placenta hypoechoic focus measuring 1.3 x 2.8 x 2.0 cm in size. US/US OB BPP w non-stress IMPRESSION: BPP 8 out of 8. Impression dictated by: Bernabe Romero M.D. 01/25/2025 6:24 PM Dictation Location: [place] [address] Electronically authenticated by: [id number] Y Date: 01/25/2025 18:24 Dictated By: Bernabe Romero M.D. Signed By: 01/25/251826 DD/ 23 TD/TT: Records Section Supervisor: [facility] Radiology Study observation (narrative) [facility] US OB BPP W NON-STRESS Ordered By: Radiologist Radiology on 01-25-2025 [facility] Work Phone: US OB BPP W NON-STRESS on 01-24-2025 [place] [address] Ultrasound Report Signed Patient: SYDNEY ROMERO MR#: [id number] : 1995 Acct:[id number] Age/Sex: 29 / F ADM Date: 01/24/25 Loc: US Attending Dr: Layo Courtney D.O. Ordering Physician: Layo Courtney D.O. Date of Service: 01/24/25 Procedure(s): US OB BPP w non-stress Accession Number(s): [id number] cc: Layo Courtney D.O.; Physician,Non-Staff Steven The [address] [address] Patient Name: SYDNEY ROMERO MRN: [facility]:[id number] date: 1995 Sex: F Assigned Patient Location: [facility] Current Patient Location: Accession/Order Number: [id number] Exam Date: 01/24/2025 16:10 Report Date: 01/24/2025 19:55 At the request of: LAYO COURTNEY DO Procedure: US OB BPP w non-stress Biophysical profile. Reason for exam: resulting in vitro fertilization COMPARISON: 01/17/2025 TECHNIQUE: Transabdominal imaging of the gravid uterus was obtained. 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 LONNY is normal at 11.9 cm. heart rate 148 bpm. US/US OB BPP w non-stress IMPRESSION: BPP 6out of 8. Correlation with NST is suggested. Impression dictated by: Juan Salinas Jr., D.O. 01/24/2025 7:55 PM Dictation Location: [place] [address] Electronically authenticated by: [id number] Y Date: 01/24/2025 19:55 Dictated By: Juan Slainas M.D. Signed By: 01/24/251957 DD/ 54 TD/TT: Records Section Supervisor: [facility] Radiology, Radiologist, MD - 01/24/2025 [place] [address] Ultrasound Report Signed Patient: SYDNEY ROMERO MR#: [id number] : 1995 Acct:[id number] Age/Sex: 29 / F ADM Date: 01/24/25 Loc: US Attending Dr: Layo Courtney D.O. Ordering Physician: Layo Courtney D.O. Date of Service: 01/24/25 Procedure(s): US OB BPP w non-stress Accession Number(s): [id number] cc: Layo Courtney D.O.; Physician,Non-Staff Steven The [place] [id number] Patient Name: SYDNEY ROMERO MRN: [facility]:[id number] date: 1995 Sex: F Assigned Patient Location: [facility] Current Patient Location: Accession/Order Number: [id number] Exam Date: 01/24/2025 16:10 Report Date: 01/24/2025 19:55 At the request of: LAYO COURTNEY DO Procedure: US OB BPP w non-stress Biophysical profile. Reason for exam: resulting in vitro fertilization COMPARISON: 01/17/2025 TECHNIQUE: Transabdominal imaging of the gravid uterus was obtained. 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 LONNY is normal at 11.9 cm. heart rate 148 bpm. US/US OB BPP w non-stress IMPRESSION: BPP 6out of 8. Correlation with NST is suggested. Impression dictated by: Juan Salinas Jr., D.O. 01/24/2025 7:55 PM Dictation Location: [facility] Electronically authenticated by: [id number] Y Date: 01/24/2025 19:55 Dictated By: Juan Salinas M.D. Signed By: 01/24/251957 DD/ 54 TD/TT: Records Section Supervisor: [facility] Radiology Study observation (narrative) [facility] US OB BPP W NON-STRESS Ordered By: Radiologist Radiology on 01-24-2025 [facility] Work Phone: US OB BPP W NON-STRESS on 01-18-2025 [place] [address] Ultrasound Report Signed Patient: SYDNEY ROMERO MR#: [id number] : 1995 Acct:[id number] Age/Sex: 29 / F ADM Date: 01/17/25 Loc: US Attending Dr: Layo Courtney D.O. Ordering Physician: Layo Courtney D.O. Date of Service: 01/17/25 Procedure(s): US OB BPP w non-stress Accession Number(s): [id number] cc: Layo Courtney D.O.; Physician,Non-Staff MDenisa [place] [id number] Patient Name: SYDNEY ROMERO MRN: [facility]:[id number] date: 1995 Sex: F Assigned Patient Location: [facility] Current Patient Location: Accession/Order Number: [id number] Exam Date: 01/17/2025 16:08 Report Date: 01/18/2025 [...] Toledo M.D. 01/18/2025 9:02 AM Dictation Location: [place] [address] Electronically authenticated by: [id number] Y Date: 01/18/2025 09:02 Dictated By: Mariela Toledo M.D. Signed By: 01/18/25904 DD/ 1 TD/TT: Records Section Supervisor: [facility] Radiology, Radiologist, - 01/18/2025 [place] [address] Ultrasound Report Signed Patient: SYDNEY ROMERO MR#: [id number] : 1995 Acct:[id number] Age/Sex: 29 / F ADM Date: 01/17/25 Loc: US Attending Dr: Layo Courtney D.O. Ordering Physician: Layo Courtney D.O. Date of Service: 01/17/25 Procedure(s): US OB BPP w non-stress Accession Number(s): [id number] cc: Layo Courtney D.O.; Physician,Non-Staff Steven [address] [address] Patient Name: SYDNEY ROMERO MRN: [facility]:[id number] date: 1995 Sex: F Assigned Patient Location: [facility] Current Patient Location: Accession/Order Number: [id number] Exam Date: 01/17/2025 16:08 Report Date: 01/18/2025 [...] Toledo M.D. 01/18/2025 9:02 AM Dictation Location: [place] [address] Electronically authenticated by: [id number] Y Date: 01/18/2025 09:02 Dictated By: Mariela Toledo M.D. Signed By: 01/18/25904 DD/ 1 TD/TT: Records Section Supervisor: [facility] Radiology Study observation (narrative) [facility] OB BPP W NON-STRESS Ordered By: Radiologist Radiology on 01-18-2025 [facility] Work Phone: Urinalysis macro (dipstick) panel (U)on 01-16-2025 Bilirubin, UA Negative Negative - 4(70) +++ mg/dL [facility] Blood, UA Negative Negative - 50 Jose/mcL [facility] Clarity, UA Clear [facility] Color, UA Yellow [facility] Glucose, UA Negative Negative - 1999(110) ++++ mg/dL [facility] Interpretation and review of laboratory results Abnormal [facility] Ketones, UA Negative Negative - 160(16) ++++ mg/dL [facility] Leukocytes, UA Positive Negative - 500+++ Onel/mcL [facility] Nitrite, UA Negative Negative - Positive [facility] pH, UA 6 5 - 9 [facility] Protein, UA Positive Negative - 1999(20) ++++ mg/dL [facility] Spec Grav, UA 1.03 1 - 1.03 [facility] Urobilinogen, UA 1.0 0.2 - 12 mg/dL [facility] US OB BPP W NON-STRESS on 01-10-2025 [place] [address] Ultrasound Report Signed Patient: SYDNEY ROMERO MR#: [id number] : 1995 Acct:[id number] Age/Sex: 29 / F ADM Date: 01/10/25 Loc: US Attending Dr: Layo Courtney D.O. Ordering Physician: Layo Courtney D.O. Date of Service: 01/10/25 Procedure(s): US OB BPP w non-stress Accession Number(s): [id number] cc: Layo Courtney D.O.; Physician,Non-Staff M.DBetito [place] [address] Patient Name: SYDNEY ROMERO MRN: [id number]:[id number] date: 1995 Sex: F Assigned Patient Location: US Current Patient Location: Accession/Order Number: [id number] Exam Date: 01/10/2025 16:03 Report Date: 01/10/2025 [...] Romero M.D. 01/10/2025 9:07 PM Dictation Location: [place] [address] Electronically authenticated by: [id number] Y Date: 01/10/2025 21:07 Dictated By: Bernabe Romero M.D. Signed By: 01/10/252109 DD/ 06 TD/TT: Records Section Supervisor: [facility] Radiology, Radiologist, MD - 01/10/2025 [place] [address] Ultrasound Report Signed Patient: SYDNEY ROMERO MR#: [id number] : 1995 Acct:[id number] Age/Sex: 29 / F ADM Date: 01/10/25 Loc: US Attending Dr: Layo Courtney D.O. Ordering Physician: Layo Courtney D.O. Date of Service: 01/10/25 Procedure(s): US OB BPP w non-stress Accession Number(s): [id number] cc: Layo Courtney D.O.; Physician,Non-Staff [place] The [address] [address] Patient Name: SYDNEY ROMERO MRN: [facility]:[id number] date: 1995 Sex: F Assigned Patient Location: [place] Current Patient Location: Accession/Order Number: [id number] Exam Date: 01/10/2025 16:03 Report Date: 01/10/2025 [...] Romero M.D. 01/10/2025 9:07 PM Dictation Location: [facility] Electronically authenticated by: [id number] Y Date: 01/10/2025 21:07 Dictated By: Bernabe Romero M.D. Signed By: 01/10/252109 DD/ 06 TD/TT: Records Section Supervisor: [facility] Radiology Study observation (narrative) [facility] US OB BPP W NON-STRESS Ordered By: Radiologist Radiology on 01-10-2025 [facility] Work Phone: Urinalysis macro (dipstick) panel (U)on 01-03-2025 Bilirubin, UA Negative Negative - 4(70) +++ mg/dL [facility] Blood, UA Negative Negative - 50 Jose/mcL [facility] Clarity, UA Clear [facility] Color, UA Yellow [facility] Glucose, UA Trace Negative - 1999(110) ++++ mg/dL [facility] Interpretation and review of laboratory results Abnormal [facility] Ketones, UA Negative Negative - 160(16) ++++ mg/dL [facility] Leukocytes, UA Positive Negative - 500+++ Onel/mcL [facility] Nitrite, UA Negative Negative - Positive [facility] pH, UA 8 5 - 9 [facility] Protein, UA Negative Negative - 2000(20) ++++ mg/dL [facility] Spec Grav, UA 1.015 1 - 1.03 [facility] Urobilinogen, UA 1.0 0.2 - 12 mg/dL [facility] US OB FOLLOW UP TRANSABDOMIN AL APPROACHon [...] II, MD, PHD at 22-Dec-2024 08:03:51 AM [facility] Normal Not Available Comment on above: Order Comment: US OB SCAN FOR GROWTH Estimated Date of Delivery: 03/01/25 Gestational Age as of 12/06/2024: 27w6d Urinalysis macro (dipstick) panel (U)on 12-19-2024 Bilirubin, UA Negative Negative - 4(70) +++ mg/dL [facility] Blood, UA Positive Negative - 50 Jose/mcL [facility] Healthcare Clarity, UA Clear [facility] Color, UA Yellow [facility] Glucose, UA Negative Negative - 2000(110) ++++ mg/dL [facility] Interpretation and review of laboratory results Abnormal [facility] Ketones, UA Negative Negative - 160(16) ++++ mg/dL [facility] Leukocytes, UA Positive Negative - 500+++ Onel/mcL [facility] Healthcare Comment on above: 3+ Nitrite, UA Negative Negative - Positive [facility] Healthcare pH, UA 6 5 - 9 [facility] Protein, UA Positive Negative - 1999(20) ++++ mg/dL [facility] Spec Grav, UA 1.03 1 - 1.03 [facility] Urobilinogen, UA 1.0 0.2 - 12 mg/dL [facility] GLUCOSE TOLERANCE 3 HOURon 0 12-06-2024 GLUCOSE TOLERANCE 3 HOUR mg/dL [facility] Comment on above: GLU FAST 90 (<95) Co l: 12/06/24 1126 GLU 1HR 143 (<180) Col: 12/06/24 1235 GLU 2HR 132 (<155) Col: 12/06/24 1327 GLU 3HR 81 (<140) Col: 12/06/24 1432 [facility] Urinalysis macro (dipstick) panel (U)on 12-06-2024 Bilirubin, UA Negative Negative - 4(70) +++ mg/dL [facility] Blood, UA Negative Negative - 50 Jose/mcL [facility] Clarity, UA Clear [facility] Color, UA Yellow [facility] Glucose, UA Negative Negative - 1999(110) ++++ mg/dL [facility] Interpretation and review of laboratory results Abnormal [facility] Ketones, UA Negative Negative - 160(16) ++++ mg/dL [facility] Leukocytes, UA 3+ Negative - 500+++ Onel/mcL [facility] Nitrite, UA Negative Negative - Positive [facility] pH, UA 8 5 - 9 [facility] Protein, UA Negative Negative - 1999(20) ++++ mg/dL [facility] Spec Grav, UA 1.015 1 - 1.03 [facility] Urobilinogen, UA 1.0 0.2 - 12 mg/dL [facility] ALL CBC WITH AUTO DIFFon BASOPHILS ABSOLUTE AUTO 0 N [facility] Basophils/100 WBC (Bld) 0.3 % 0.2 - 2.0 % [facility] Eosinophils/100 WBC (Bld) 1.1 % 0.9 - 7.0 % [facility] Erythrocyte distribution width (RBC) [Ratio] 12.4 % 11.0 - 15.0 % [facility] Hematocrit (Bld) [Volume fraction] 38.9 % 36.0 - 48.0 % [facility] Hemoglobin (Bld) [Mass/Vol] 13.6 g/dL 12.0 - 16.0 g/dL [facility] IMMATURE GRANULOCYTES ABS AUTO 0.13 High [facility] Immature granulocytes/100 WBC (Bld) 1.4 % High 0.0 - 0.5 % [facility] Interpretation and review of laboratory results Abnormal [facility] LYMPHOCYTES ABSOLUTE AUTO 1.7 [facility] Lymphocytes/100 WBC (Bld) 18.9 % Low 20.5 - 60. 0 % [facility] MCH (RBC) [Entitic mass] 31.5 pg 26. 7 - 34.0 pg [facility] MCHC (RBC) [Mass/Vol] 35 g/dL 29.9 - 35.2 g/dL [facility] MCV (RBC) [Entitic vol] 90 fL 81.0 - 99.0 fL [facility] MONOCYTES ABSOLUTE AUTO 0.4 N [facility] Monocytes/100 WBC (Bld) 4.6 % 1.7 - 12.0 % [facility] NEUTROPHILS ABSOLUTE AUTO 6.8 High [facility] Neutrophils/100 WBC (Bld) 73.7 % 43.0 - 75. 0 % [facility] Platelet mean volume (Bld) [Entitic vol] 11.3 fL 9.5 - 13.5 fL [facility] TBH EO # 0.1 [facility] TB PLT 142 Low [facility] RBC 4.32 [facility] WBC 9.2 [facility] Urinalysis macro (dipstick) panel (U)on 11-09-2024 Bilirubin, UA Negative Negative - 4(70) +++ mg/dL [facility] Blood, UA Negative Negative - 50 Jose/mcL [facility] Clarity, UA Clear [facility] Color, UA Yellow [facility] Glucose, UA Negative Negative - 1999(110) ++++ mg/dL [facility] Interpretation and review of laboratory results Normal [facility] Ketones, UA Negative Negative - 160(16) ++++ mg/dL [facility] Leukocytes, UA Negative Negative - 500+++ Onel/mcL [facility] Nitrite, UA Negative Negative - Positive [facility] pH, UA 5.5 5 - 9 [facility] Protein, UA Negative Negative - 1999(20) ++++ mg/dL [facility] Spec Grav, UA 1.025 1 - 1.03 [facility] Urobilinogen, UA 1.0 0.2 - 12 mg/dL [facility] Urinalysis macro (dipstick) panel (U)on 10-17-2024 Bilirubin, UA Negative Negative - 4(70) +++ mg/dL [facility] Blood, UA Negative Negative - 50 Jose/mcL [facility] Clarity, UA Clear [facility] Color, UA Yellow [facility] Glucose, UA Negative Negative - 1999(110) ++++ mg/dL [facility] Interpretation and review of laboratory results Abnormal [facility] Ketones, UA Negative Negative - 160(16) ++++ mg/dL [facility] Leukocytes, UA Positive Negative - 500+++ Onel/mcL [facility] Comment on above: small Nitrite, UA Negative Negative - Positive [facility] pH, UA 7 5 - 9 [facility] Protein, UA Negative Negative - 2000(20) ++++ mg/dL [facility] Spec Grav, UA 1.015 1 - 1.03 [facility] Urobilinogen, UA 0.2 0.2 - 12 mg/dL [facility] ALL CBC WITH AUTO DIFFon BASOPHILS ABSOLUTE AUTO 0 N [facility] Basophils/100 WBC (Bld) 0.2 % 0.2 - 2.0 % [facility] Eosinophils/100 WBC (Bld) 3.2 % 0.9 - 7.0 % [facility] Erythrocyte distribution width (RBC) [Ratio] 12.5 % 11.0 - 15.0 % [facility] Hematocrit (Bld) [Volume fraction] 37.9 % 36.0 - 48.0 % [facility] Hemoglobin (Bld) [Mass/Vol] 13.2 g/dL 12.0 - 16.0 g/dL [facility] IMMATURE GRANULOCYTES ABS AUTO 0.14 High [facility] Immature granulocytes/100 WBC (Bld) 1.5 % High 0.0 - 0.5 % [facility] Interpretation and review of laboratory results Abnormal [facility] LYMPHOCYTES ABSOLUTE AUTO 2 [facility] Lymphocytes/100 WBC (Bld) 20.8 % 20.5 - 60. 0 % [facility] MCH (RBC) [Entitic mass] 30.9 pg 26. 7 - 34.0 pg [facility] MCHC (RBC) [Mass/Vol] 34.8 g/dL 29.9 - 35.2 g/dL [facility] MCV (RBC) [Entitic vol] 88.8 fL 81.0 - 99.0 fL [facility] MONOCYTES ABSOLUTE AUTO 0.7 N [facility] Monocytes/100 WBC (Bld) 7.2 % 1.7 - 12.0 % [facility] NEUTROPHILS ABSOLUTE AUTO 6.3 [facility] Neutrophils/100 WBC (Bld) 67.1 % 43.0 - 75. 0 % [facility] Platelet mean volume (Bld) [Entitic vol] 11.1 fL 9.5 - 13.5 fL [facility] TBH EO # 0.3 [facility] PLT 153 [facility] RBC 4.27 [facility] WBC 9.4 [facility] US OB DETAIL ANATOMYon 10-07-2024 US [...] EFW (oz) 12 oz EFW by: Hadlock (UPS-YS-BN-FL) Extended Senior Service Technician 6.0 mm CM 4.4 mm 36% [...] Normal LVOT view: Normal 3-vessel view: Normal 1-ibczqe-fmqfkec view: Normal Heart / Thorax Situs: situs [...] Normal L (more content not included)... Normal [facility] US for pregnancyon 5 Interpreted by: [...] EFW (oz) 12 oz EFW by: Hadlock (TJE-TI-TM-FL) Extended Senior Service Technician 6.0 mm CM 4.4 mm 36% [...] Normal LVOT view: Normal 3-vessel view: Normal 0-bvcmny-fkoogvs view: Normal Heart / Thorax Situs: situs [...] [employer] History ====== General History Wsrysu239 cm Height (ft)5 ft Height (in)3 in Previous Outcomes Gravida1 Para0 Maternal Assessment Fmeibk850 cm Height (ft)5 ft Height (in)3 in Zsrnus45 kg Weight (lb)165 lb Weight gain0 kg [...] 87% Hadlock Femur32.4 mm20w 1d 73% Hadlock Cbrhoae48.4 mm 45% Chitty HC / AC1.05 2% Hadlock XGQ123 g20w 1d 91% Hadlock EFW (lb)0 lb EFW (oz)12 oz EFW by:Hadlock (ZWM-OQ-ER-FL) Extended Vp6.0 mm CM4.4 mm 36% Nicolaides Nasal bone4.7 mm Head / Face / Neck Cephalic index0.74 10% Nicolaides Nasal bone:present Extremities / Bony Struc FL / BPD0.74 92% Hadlock FL / HC0.20 96% Hadlock FL / AC0.21 35% Hadlock Other Structures GXS363 bpm Anatomy Cranium:Normal Lateral ventricles:Normal Choroid plexus:Normal [...] view:Normal RVOT view:Normal LVOT view:Normal 3-vessel view:Normal 8-sicmlv-qvhnozk view:Normal Heart / Thorax Situs:situs solitus (normal) [...] Lt lower leg:Normal (more content not included)... [facility] Work Phone: Source Facility: [facility] [...] EFW (oz) 12 oz EFW by: Hadlock (TPZ-NS-YX-FL) Extended Senior Service Technician 6.0 mm CM 4.4 mm 36% [...] Normal LVOT view: Normal 3-vessel view: Normal 4-bskzsj-dqjozfg view: Normal Heart / Thorax Situs: situs [...] included)... Radiology, Radiologist, - 10/07/2024 [facility] [...] EFW (oz) 12 oz EFW by: Hadlock (DTL-TH-YF-FL) Extended Senior Service Technician 6.0 mm CM 4.4 mm 36% [...] Normal LVOT view: Normal 3-vessel view: Normal 3-zopqok-lftptkq view: Normal Heart / Thorax Situs: situs [...] Normal Lt forear (more content not included)... [facility] Radiology Study observation (narrative) [facility] Work Phone: Radiology Study observation (narrative) [facility] US for pregnancyOrdered By: Ad Ovalle on 10-07-2024 [facility] Work Phone: US for pregnancyOrdered By: Radiologist Radiology on 10-07-2024 [facility] Work Phone: RECURRENT VAGINITIS (HTRX)on 09-07-2024 ATOPOBIUM VAGINAE 0 [facility] ATOPOBIUM VAGINAE Not detected [facility] BVAB 2,3 (BACTERIAL VAGINOSIS ASSOCIATED BACTERIA 2, 3); MOBILUNCUS SPP 0 [facility] BVAB 2,3 (BACTERIAL VAGINOSIS ASSOCIATED BACTERIA 2, 3); MOBILUNCUS SPP Not detected [facility] PRESTON ALBICANS, PARAPSILOSIS, TROPICALIS 0 [facility] PRESTON ALBICANS, PARAPSILOSIS, TROPICALIS Not detected [facility] PRESTON GLABRATA 0 [facility] PRESTON GLABRATA Not detected [facility] PRESTON KRUSEI 0 [facility] PRESTON KRUSEI Not detected [facility] CHLAMYDIA TRACHOMATIS 0 [facility] CHLAMYDIA TRACHOMATIS Not detected N [facility] GARDNERELLA VAGINALIS 0 [facility] GARDNERELLA VAGINALIS Not detected [facility] MEGASPHAERA (TYPES 1, 2) 0 [facility] MEGASPHAERA (TYPES 1, 2) Not detected [facility] MYCOPLASMA GENITALIUM 0 [facility] MYCOPLASMA GENITALIUM Not detected N [facility] NEISSERIA GONORRHOEAE 0 [facility] NEISSERIA GONORRHOEAE Not detected N [facility] TRICHOMONAS VAGINALIS 0 [facility] TRICHOMONAS VAGINALIS Not detected N [facility] Urinalysis macro (dipstick) panel (U)on 09-06-2024 Bilirubin, UA Negative Negative - 4(70) +++ mg/dL [facility] Blood, UA Negative Negative - 50 Jose/mcL [facility] Clarity, UA Clear [facility] Color, UA Yellow [facility] Glucose, UA Negative Negative - 1999(110) ++++ mg/dL [facility] Interpretation and review of laboratory results Abnormal [facility] Ketones, UA Negative Negative - 160(16) ++++ mg/dL [facility] Leukocytes, UA Positive Negative - 500+++ Onel/mcL [facility] Comment on above: small Nitrite, UA Negative Negative - Positive [facility] pH, UA 6 5 - 9 [facility] Protein, UA Negative Negative - 1999(20) ++++ mg/dL [facility] Spec Grav, UA 1.03 1 - 1.03 [facility] Urobilinogen, UA 0.2 0.2 - 12 mg/dL [facility] ALL CBC WITH AUTO DIFFon BASOPHILS ABSOLUTE AUTO 0 [facility] Basophils/100 WBC (Bld) 0.2 % 0.2 - 2.0 % [facility] Eosinophils/100 WBC (Bld) 2.9 % 0.9 - 7.0 % [facility] Erythrocyte distribution width (RBC) [Ratio] 12 % 11.0 - 15.0 % [facility] Hematocrit (Bld) [Volume fraction] 39.3 % 36.0 - 48.0 % [facility] Hemoglobin (Bld) [Mass/Vol] 13.6 g/dL 12.0 - 16.0 g/dL [facility] IMMATURE GRANULOCYTES ABS AUTO 0.06 High [facility] Immature granulocytes/100 WBC (Bld) 0.7 % High 0.0 - 0.5 % [facility] Interpretation and review of laboratory results Abnormal [facility] LYMPHOCYTES ABSOLUTE AUTO 2.1 [facility] Lymphocytes/100 WBC (Bld) 25.4 % 20.5 - 60. 0 % [facility] MCH (RBC) [Entitic mass] 30.2 pg 26. 7 - 34.0 pg [facility] MCHC (RBC) [Mass/Vol] 34.6 g/dL 29.9 - 35.2 g/dL [facility] MCV (RBC) [Entitic vol] 87.3 fL 81.0 - 99.0 fL [facility] Mon[facility]/100 WBC (Bld) 5.8 % 1.7 - 12.0 % [facility] NEUTROPHILS ABSOLUTE AUTO 5.5 [facility] Neutrophils/100 WBC (Bld) 65 % 43.0 - 75. 0 % [facility] Platelet mean volume (Bld) [Entitic vol] 10.9 fL 9.5 - 13.5 fL [facility] TBH EO # 0.2 [facility] PLT 151 [facility] RBC 4.5 [facility] WBC 8.4 [facility] Urinalysis macro (dipstick) panel (U)on 08-08-2024 Bilirubin, UA Negative Negative - 4(70) +++ mg/dL [facility] Blood, UA Negative Negative - 50 Ojse/mcL [facility] Clarity, UA Clear [facility] Color, UA Yellow [facility] Glucose, UA Negative Negative - 1999(110) ++++ mg/dL [facility] Interpretation and review of laboratory results Abnormal [facility] Ketones, UA Negative Negative - 160(16) ++++ mg/dL [facility] Leukocytes, UA Positive Negative - 500+++ Onel/mcL [facility] Comment on above: small Nitrite, UA Negative Negative - Positive [facility] pH, UA 6 5 - 9 [facility] Protein, UA Negative Negative - 1999(20) ++++ mg/dL [facility] Spec Grav, UA 1.025 1 - 1.03 [facility] Urobilinogen, UA 0.2 0.2 - 12 mg/dL [facility] HCG ( test) Ql (U)o n 07-29-2024 Interpretation and review of laboratory results Abnormal [facility] Preg Test, Ur Positive Negative [facility] Urinalysis macro (dipstick) panel (U)on 07-29-2024 Bilirubin, UA Negative Negative - 4(70) +++ mg/dL [facility] Blood, UA Positive Negative - 50 Jose/mcL [facility] Comment on above: trace Clarity, UA Clear [facility] Color, UA Yellow [facility] Glucose, UA Negative Negative - 1999(110) ++++ mg/dL [facility] Interpretation and review of laboratory results Abnormal [facility] Ketones, UA Negative Negative - 160(16) ++++ mg/dL [facility] Leukocytes, UA Positive Negative - 500+++ Onel/mcL [facility] Comment on above: small Nitrite, UA Negative Negative - Positive [facility] pH, UA 5.5 5 - 9 [facility] Protein, UA Negative Negative - 2000(20) ++++ mg/dL [facility] Spec Grav, UA 1.03 1 - 1.03 [facility] Urobilinogen, UA 0.2 0.2 - 12 mg/dL [facility] PROGESTERONEon 07-12-2024 PROGESTERONE 53.5 ng/mL Normal [facility] Comment on above: Result Comment: Refe rence Ranges Female Follicular Phase < 1.0 Luteal Phase 2.6-21.5 Post menopausal < 0.5 1st Trimester 4.1-34.0 2nd Trimester 24.0-76.0 3rd Trimester 52.0-302.0 Performed By: #### 7 45 #### [facility] [address], [address] [place] [id number] Infection Prevention Practitioner: Alexey Boogie MD US OB TRANSVAGINALon 025 [...] evaluation for early dating. View: Sufficient Normal [facility] Choriogonadotropin.beta subu niton 06-30-2024 HCG.beta subunit Qn 6575 m[IU]/mL High <5 Un [facility] Comment on above: Order Comment: Total HCG measurement is performed using the Faith Cristopher Access Immunoassay which detects intact HCG and free beta HCG subunit. This test is not indicated for use as a tumor marker. HCG testing is performed using a different test methodology at [facility] than other [facility]. Direct result comparison should only be [...] By: #### 2 1198-7 #### JOSEPH ESQUIVEL ([id number]) [facility] ([facility]) [id number] [place] [address] Choriogonadotropin.beta subu niton 06-23-2024 HCG.beta subunit Qn 330 m[IU]/mL High <5 [facility] Comment on above: Order Comment: Total HCG measurement is performed using the Faith Cristopher Access Immunoassay which detects intact HCG and free beta HCG subunit. This test is not indicated for use as a tumor marker. HCG testing is performed using a different test methodology at [facility] than other [facility]. Direct result comparison should only be [...] By: #### 2 1198-7 #### JOSEPH ESQUIVEL ([id number]) [facility] ([facility]) [address] [place] [address] Estradiolon 06-23-2024 E2 [Mass/Vol] 378 pg/mL Normal [facility] Comment on above: Order Comment: REF V ALUES FOLLICULAR PHASE 20-144 MID CYCLE 64-357 LUTEAL PHASE 56-214 POSTMENOPAUSE < 32 PREPUBERTY < 20 FEMALE 10-18Y 8-110 MALE 10-18Y < 20 ADULT MALE < 40 Estradiol measurement is performed using the Faith Anagran Access Estradiol Immunoassay. Estradiol testing is performed using a different test methodology at [facility] than other [facility]. Direct result comparison should only be made within the same method. Performed By: #### 2 243-4 #### JOSEPH ESQUIVEL ([id number]) [facility] ([facility]) [id number] [place] [address] Progesteroneon 06-23-2024 Progesterone [Mass/Vol] 42.6 ng/mL Normal [facility] Comment on above: Order Comment: REF V ALUES Male <0.2-0.8 Follicular Phase <0.2-1.5 Luteal Phase 7.4-15.4 Post Menopausal <0.2-0.2 1ST Trimester 12.0-84.0 2ND Trimester 10.2-58.8 3RD Trimester 46.5-160 Progesterone is performed using the Faith Crowley Access Immunoassay. Progesterone testing is performed using a different test methodology at [facility] than other [facility]. Direct result comparison should only be made within the same method. Performed By: #### 2 839-9 #### JOSEPH ESQUIVEL ([id number]) [facility] ([facility]) [address] [place] [address] No Panel Informationon 06-13 Juan Chavarria MD [...] Preop diagnosis: Infertility Post op diagnosis: [employer] Director: none Depth: 7 cm Curve: anterior Distance [...] Juan Chavarria 06/13/24 11:24 AM [facility] Work Phone: Progesteroneon 06-13-2024 Progesterone [Mass/Vol] 45.0 ng/mL Normal [facility] Comment on above: Order Comment: REF V ALUES Male <0.2-0.8 Follicular Phase <0.2-1.5 Luteal Phase 7.4-15.4 Post Menopausal <0.2-0.2 1ST Trimester 12.0-84.0 2ND Trimester 10.2-58.8 3RD Trimester 46.5-160 Progesterone is performed using the Faith Crowley Access Immunoassay. Progesterone testing is performed using a different test methodology at [facility] than other [facility]. Direct result comparison should only be made within the same method. Performed By: #### 2 839-9 #### ORA MOHAN ([id number]) [facility] ([facility] [place]) [address] [place] [address] Estradiolon 06-07-2024 E2 [Mass/Vol] 2870 pg/mL Normal [facility] Comment on above: Order Comment: REF V ALUES FOLLICULAR PHASE 20-144 MID CYCLE 64-357 LUTEAL PHASE 56-214 POSTMENOPAUSE < 32 PREPUBERTY < 20 FEMALE 10-18Y 8-110 MALE 10-18Y < 20 ADULT MALE < 40 Performed By: #### 2 243-4 #### JOSEPH ESQUIVEL ([id number]) [facility] ([facility] [place]) [address] [place] [address] Progesteroneon 06-07-2024 Progesterone [Mass/Vol] 0.4 ng/mL Normal [facility] Comment on above: Order Comment: REF V ALUES Male <0.2-0.8 Follicular Phase <0.2-1.5 Luteal Phase 7.4-15.4 Post Menopausal <0.2-0.2 1ST Trimester 12.0-84.0 2ND Trimester 10.2-58.8 3RD Trimester 46.5-160 Progesterone is performed using the Faith Crowley Access Immunoassay. Progesterone testing is performed using a different test methodology at [facility] than other [facility]. Direct result comparison should only be made within the same method. Result Comment: Ref Values Male <0.3- 1.2 Follicular Phase <0.3- 1.4 Luteal Phase 3.3-25.6 Mid-Luteal Phase 4.4-28.0 Postmenopausal <0.3- 0.7 Females: 1st Trimester 11.2- 90.0 2nd Trimester 25.6- 89.4 3RD Trimester 48.4-422.5 Patients receiving DHEA-S supplements may show false elevation of progesterone for results near 1.0 ng/mL. Contact laboratory at [phone] if alternative testing is needed. Performed By: #### 2 839-9 #### JOSEPH ESQUIVEL ([id number]) [facility] ([facility]) [address] [place] [address] [facility] US PELVIS LIMITED FOLLIC LES-FOLLICLE STUDIES PERFORMEDon 06-07-2024 [facility] US PELVIS LIMITED FOLLICLES-FOLLICLE STUDIES PERFORMED Follicle scan performed with follicle measurements in report. and Trilaminar appearance to the endometrium is noted. Normal [facility] Estradiolon 06-06-2024 E2 [Mass/Vol] 558 pg/mL Normal [facility] Comment on above: Order Comment: REF V ALUES FOLLICULAR PHASE 20-144 MID CYCLE 64-357 LUTEAL PHASE 56-214 POSTMENOPAUSE < 32 PREPUBERTY < 20 FEMALE 10-18Y 8-110 MALE 10-18Y < 20 ADULT MALE < 40 Performed By: #### 2 243-4 #### JOSEPH ESQUIVEL ([id number]) [facility] ([facility]) [address] [place] [address] Follicle Diameter USon 06-06 Trilaminar appearance to the endometrium is noted. RIS SECTRA ONLY [facility] Work Phone: Radiology Study observation (narrative) [facility] Work Phone: Progesteroneon 06-06-2024 Progesterone [Mass/Vol] 0.8 ng/mL Normal [facility] Comment on above: Order Comment: REF V ALUES Male <0.2-0.8 Follicular Phase <0.2-1.5 Luteal Phase 7.4-15.4 Post Menopausal <0.2-0.2 1ST Trimester 12.0-84.0 2ND Trimester 10.2-58.8 3RD Trimester 46.5-160 Progesterone is performed using the Faith Anagran Access Immunoassay. Progesterone testing is performed using a different test methodology at [facility] than other [facility]. Direct result comparison should only be made within the same method. Result Comment: Ref Values Male <0.3- 1.2 Follicular Phase <0.3- 1.4 Luteal Phase 3.3-25.6 Mid-Luteal Phase 4.4-28.0 Postmenopausal <0.3- 0.7 Females: 1st Trimester 11.2- 90.0 2nd Trimester 25.6- 89.4 3RD Trimester 48.4-422.5 Patients receiving DHEA-S supplements may show false elevation of progesterone for results near 1.0 ng/mL. Contact laboratory at [phone] if alternative testing is needed. Performed By: #### 2 839-9 #### JOSEPH ESQUIVEL ([id number]) [facility] ([facility]) [address] [place] [address] KELSY US ENDOMETRIAL LINING CH ECKon 06-06-2024 KELSY US ENDOMETRIAL LINING CHECK Trilaminar appearance to the endometrium is noted. [facility] No Panel Informationon 03-22 Juan Chavarria MD 03/22/2024 9:44 AM Egg Retrieval Date/Time: 03/22/2024 9:39 AM Performed by: Juan Chavarria MD Authorized by: Donya Abernathy APRN-DIVINITY TEACHER Consent: Consent obtained: Verbal and written Consent [...] diagnosis: Female infertility Post op diagnosis: [employer] Director: Dr. Warren IV Fluids: 600 cc EBL: 5 cc UOP: Not recorded Specimen: Oocytes Complications: None Number of Oocytes right ovary: 16 Ovarian access (right): Easy Number of Oocytes left ovary: 9 Ovarian access (left): Easy Endometrial thickness: n/a Needle type: Single Additional notes: K[facility]SY LAB RIS [facility] Work Phone: Lutropinon 03-21-2024 Lutropin Qn 29.3 IU/L Normal [facility] Comment on above: Result Comment: LH R eference Values Follicular Phase 1.5-10.0 Mid-Cycle 13.0-72.0 Luteal Phase 0.5-13.0 Menopause 15.0-65.0 Pre-puberty 0- 3.0 Children 0- 6.0 Adult Male 1.0- 9.0 Luteinizing Hormone is performed using the Faith Anagran Access Immunoassay. LH testing is performed using a different test methodology at [facility] Direct result comparison should only be made within the same method. Performed By: #### 4 7236-5 #### SHAI Pickard ([id number]) [facility] ([facility]) [address] [place] [address] Progesteroneon 03-21-2024 Progesterone [Mass/Vol] 4.5 ng/mL Normal [facility] Comment on above: Order Comment: HIV A g/Ab screen is performed using the Siemens MedlumicsllSLEDVision HIV Ag/Ab Combo assay which detects the presence of HIV p24 antigen as well as antibodies to HIV-1 (Group M and O) and HIV-2. No laboratory evidence of HIV infection. If acute HIV infection is suspected, consider testing for HIV RNA by PCR (viral load). Performed By: #### 5 6888-1 #### SHAI Pickard ([id number]) [facility] ([facility]) [address] [place] [address] E2 [Mass/Vol]Ordered By: Shira Rich on 03-20-2024 REF VALUES FOLLICULAR PHASE 20-144 MID CYCLE 64-357 LUTEAL PHASE 56-214 POSTMENOPAUSE < 32 PREPUBERTY < 20 FEMALE 10-18Y 8-110 MALE 10-18Y < 20 ADULT MALE < 40 Estradiol measurement is performed using the Faith Crowley Access Estradiol Immunoassay. Estradiol testing is performed using a different test methodology at [facility] than other [facility]. Direct result comparison should only be made within the same method. [facility] EstradiolOrdered By: Bela Rich on 03-20-2024 E2 [Mass/Vol] 4909 pg/mL [facility] Estradiolon 03-20-2024 E2 [Mass/Vol] 4909 pg/mL Normal [facility] Comment on above: Order Comment: HIV [...] By: #### 5 6888-1 #### SHAI Pickard ([id number]) [facility] ([facility]) [address] [place] [address] Follicle Diameter USon 03-20 Follicle scan performed with follicle measurements in report. RIS SECTRA ONLY [facility] Work Phone: Radiology Study observation (narrative) [facility] Work Phone: Progesteroneon 03-20-2024 Progesterone [Mass/Vol] 1.3 ng/mL U [facility] Progesterone [Mass/Vol] 1.3 ng/mL Normal U [facility] Comment on above: Order Comment: HIV [...] By: #### 5 6888-1 #### SHAI Pickard ([id number]) [facility] ([facility]) [address] [place] [address] Progesterone [Mass/Vol]on REF VALUES Male <0.2-0.8 Follicular Phase <0.2-1.5 Luteal Phase 7.4-15.4 Post Menopausal <0.2-0.2 1ST Trimester 12.0-84.0 2ND Trimester 10.2-58.8 3RD Trimester 46.5-160 Progesterone is performed using the Faith Cristopher Access Immunoassay. Progesterone testing is performed using a different test methodology at [facility] than other [facility]. Direct result comparison should only be made within the same method. [facility] KELSY US PELVIS LIMITED FOLLIC LES-FOLLICLE STUDIES PERFORMEDon 03-20-2024 KELSY US PELVIS LIMITED FOLLICLES-FOLLICLE STUDIES PERFORMED Follicle scan performed with follicle measurements in report. Normal [facility] Estradiolon 03-19-2024 E2 [Mass/Vol] 3760 pg/mL Normal [facility] Comment on above: Order Comment: HIV [...] By: #### 5 6888-1 #### SHAI Pickard ([id number]) [facility] ([facility]) [address] [place] [address] Follicle Diameter USon 03-19 Follicle scan performed with follicle measurements in report. RIS SECTRA ONLY [facility] Work Phone: Radiology Study observation (narrative) [facility] Work Phone: Progesteroneon 03-19-2024 Progesterone [Mass/Vol] 1.1 ng/mL Normal U [facility] Comment on above: Order Comment: HIV [...] By: #### 5 6888-1 #### SHAI Pickard ([id number]) [facility] ([facility]) [address] [place] [address] KELSY US PELVIS LIMITED FOLLIC LES-FOLLICLE STUDIES PERFORMEDon 03-19-2024 KELSY US PELVIS LIMITED FOLLICLES-FOLLICLE STUDIES PERFORMED Follicle scan performed with follicle measurements in report. Normal [facility] E2 [Mass/Vol]on 03-17-2024 REF VALUES FOLLICULAR PHASE 20-144 MID CYCLE 64-357 LUTEAL PHASE 56-214 POSTMENOPAUSE < 32 PREPUBERTY < 20 FEMALE 10-18Y 8-110 MALE 10-18Y < 20 ADULT MALE < 40 Estradiol measurement is performed using the Faith Cristopher Access Estradiol Immunoassay. Estradiol testing is performed using a different test methodology at [facility] than other [facility]. Direct result comparison should only be made within the same method. [facility] Estradiolon 03-17-2024 E2 [Mass/Vol] 1462 pg/mL [facility] E2 [Mass/Vol] 1462 pg/mL Normal [facility] Comment on above: Order Comment: HIV [...] By: #### 5 6888-1 #### SHAI Pickard ([id number]) [facility] ([facility]) [address] [place] [address] Follicle Diameter USon 03-17 Follicle scan performed with follicle measurements in report. Trilaminar appearance to the endometrium is noted. Physiologic free fluid is noted in the cul de sac. Notably retroverted uterus. Two small complex ovarian cysts noted, one on the left and one on the right. RIS SECTRA ONLY Radiology Study observation (narrative) [facility] Work Phone: Follicle Diameter USOrdered By: Leigh Ann Tuttle on 03-17-2024 [facility] Work Phone: Progesteroneon 03-17-2024 Progesterone [Mass/Vol] 0.6 ng/mL Normal [facility] Comment on above: Order Comment: HIV A [...] By: #### 5 6888-1 #### SHAI Pickard ([id number]) [facility] ([facility]) [address] [place] [address] KELSY US PELVIS LIMITED FOLLIC LES-FOLLICLE STUDIES PERFORMEDon 03-17-2024 KELSY US PELVIS LIMITED FOLLICLES-FOLLICLE STUDIES PERFORMED Follicle scan performed with follicle measurements in report. Trilaminar appearance to the endometrium is noted. Physiologic free fluid is noted in the cul de sac. Notably retroverted uterus. Two small complex ovarian cysts noted, one on the left and one on the right. Normal [facility] E2 [Mass/Vol]on 03-15-2024 REF VALUES FOLLICULAR PHASE 20-144 MID CYCLE 64-357 LUTEAL PHASE 56-214 POSTMENOPAUSE < 32 PREPUBERTY < 20 FEMALE 10-18Y 8-110 MALE 10-18Y < 20 ADULT MALE < 40 Estradiol measurement is performed using the Faith Crowley Access Estradiol Immunoassay. Estradiol testing is performed using a different test methodology at [facility] than other [facility]. Direct result comparison should only be made within the same method. [facility] Estradiolon 03-15-2024 E2 [Mass/Vol] 721 pg/mL [facility] E2 [Mass/Vol] 721 pg/mL Normal [facility] Comment on above: Order Comment: REF V ALUESFOLLICULAR PHASE 20-144MID CYCLE 64-357LUTEAL PHASE 56-214POSTMENOPAUSE < 32PREPUBERTY < 20FEMALE 10-18Y 8-110MALE 10-18Y < 20ADULT MALE < 40Estradiol measurement is performed using the Faith Cristopher Access Estradiol Immunoassay. Estradiol testing is performed using a different test methodology at [facility] than other [facility]. Direct resultcomparison should only be made within the same method. Performed By: #### 1 6128-1 #### SHAI Pickard ([id number]) [facility] ([facility]) [address] [place] [address] Follicle Diameter USon 03-15 Follicle scan performed with follicle measurements in report., Trilaminar appearance to the endometrium is noted., and Free fluid is noted in the cul de sac. RIS SECTRA ONLY [facility] Work Phone: Radiology Study observation (narrative) [facility] Work Phone: KELSY US PELVIS LIMITED FOLLIC LES-FOLLICLE STUDIES PERFORMEDon 03-15-2024 KELSY US PELVIS LIMITED FOLLICLES-FOLLICLE STUDIES PERFORMED Follicle scan performed with follicle measurements in report., Trilaminar appearance to the endometrium is noted., and Free fluid is noted in the cul de sac. Normal [facility] E2 [Mass/Vol]on 03-09-2024 REF VALUES FOLLICULAR PHASE 20-144 MID CYCLE 64-357 LUTEAL PHASE 56-214 POSTMENOPAUSE < 32 PREPUBERTY < 20 FEMALE 10-18Y 8-110 MALE 10-18Y < 20 ADULT MALE < 40 Estradiol measurement is performed using the Faith Cristopher Access Estradiol Immunoassay. Estradiol testing is performed using a different test methodology at [facility] than other [facility]. Direct result comparison should only be made within the same method. [facility] Estradiolon 03-09-2024 E2 [Mass/Vol] pg/mL pg/mL [facility] E2 [Mass/Vol] pg/mL Normal [facility] Comment on above: Order Comment: REF V ALUESFOLLICULAR PHASE 20-144MID CYCLE 64-357LUTEAL PHASE 56-214POSTMENOPAUSE < 32PREPUBERTY < 20FEMALE 10-18Y 8-110MALE 10-18Y < 20ADULT MALE < 40Estradiol measurement is performed using the Faith Crowley Access Estradiol Immunoassay. Estradiol testing is performed using a different test methodology at [facility] than other [facility]. Direct resultcomparison should only be made within the same method. Performed By: #### 1 6128-1 #### SHAI Pickard ([id number]) [facility] ([facility]) [id number] [place] [address] Follicle Diameter USon 03-09 Follicle scan performed with follicle measurements in report., Trilaminar appearance to the endometrium is noted., and Free fluid is noted in the cul de sac. RIS SECTRA ONLY Radiology Study observation (narrative) [facility] Work Phone: Follicle Diameter USOrdered By: Alicia Morgan on 03-09-2024 [facility] Work Phone: Hematocrit Auto (Bld) [Volum e fraction]on 03-09-2024 Hematocrit (Bld) [Volume fraction] 43.2 % 36.0 - 46.0 % [facility] Interpretation and review of laboratory results Normal [facility] Hematocrit (Bld) [Volume fraction] 43.2 % Normal 36.0-46.0 [facility] Comment on above: Performed By: #### 1 6128-1 #### SHAI Pickard ([id number]) [facility] ([facility]) [address] [place] [address] KELSY US PELVIS LIMITED FOLLIC LES-FOLLICLE STUDIES PERFORMEDon 03-09-2024 KELSY US PELVIS LIMITED FOLLICLES-FOLLICLE STUDIES PERFORMED Follicle scan performed with follicle measurements in report., Trilaminar appearance to the endometrium is noted., and Free fluid is noted in the cul de sac. Normal [facility] No Panel Informationon 02-22 Juan Chavarria [...] diagnosis: Female infertility Post op diagnosis: [employer] Director: none IV Fluids: 500 cc EBL: 5 cc UOP: Not recorded Specimen: Oocytes Complications: None Number of Oocytes right ovary: 17 Ovarian acc ss (right): Easy Number of Oocytes left ovary: 13 Ovarian access (left): Easy Endometrial thickness: n/a Needle type: Single Additional notes: KELSY LAB RIS [facility] Work Phone: Lutropinon 02-22-2024 Lutropin Qn 35.3 IU/L Normal [facility] Comment on above: Result Comment: LH R eference Values Follicular Phase 1.5-10.0 Mid-Cycle 13.0-72.0 Luteal Phase 0.5-13.0 Menopause 15.0-65.0 Pre-puberty 0- 3.0 Children 0- 6.0 Adult Male 1.0- 9.0 Luteinizing Hormone is performed using the Faith Anagran Access Immunoassay. LH testing is performed using a different test methodology at [facility] than other [facility]. Direct result comparison should only be made within the same method. Performed By: #### 1 6128-1 #### SHAI Pickard ([id number]) [facility] ([facility]) [address] [place] [address] Progesteroneon 02-22-2024 Progesterone [Mass/Vol] 5.0 ng/mL Normal U [facility] Comment on above: Order Comment: REF V ALUESMale <0.2-0.8Follicular Phase <0.2-1.5Luteal Phase 7.4-15.4Post Menopausal <0.2-0.21ST Trimester 12.0-84.02ND Trimester 10.2-58.83RD Trimester 46.5-160Progesterone is performed using the Faith Anagran Access Immunoassay.Progesterone testing is performed using a different test methodology at [facility] than other [facility]. Direct result comparison should only be made within the same method. Performed By: #### 1 6128-1 #### SHAI Pickard ([id number]) [facility] ([facility]) [address] [place] [address] E2 [Mass/Vol]Ordered By: Christi Infante on 02-21-2024 REF VALUES FOLLICULAR PHASE 20-144 MID CYCLE 64-357 LUTEAL PHASE 56-214 POSTMENOPAUSE < 32 PREPUBERTY < 20 FEMALE 10-18Y 8-110 MALE 10-18Y < 20 ADULT MALE < 40 Estradiol measurement is performed using the Faith Crowley Access Estradiol Immunoassay. Estradiol testing is performed using a different test methodology at [facility] than other [facility]. Direct result comparison should only be made within the same method. [facility] EstradiolOrdered By: Janet Ritchie on 02-21-2024 E2 [Mass/Vol] 5153 pg/mL [facility] Estradiolon 02-21-2024 E2 [Mass/Vol] 5153 pg/mL Normal [facility] Comment on above: Order Comment: REF V ALUESFOLLICULAR PHASE 20-144MID CYCLE 64-357LUTEAL PHASE 56-214POSTMENOPAUSE < 32PREPUBERTY < 20FEMALE 10-18Y 8-110MALE 10-18Y < 20ADULT MALE < 40Estradiol measurement is performed using the Faith Anagran Access Estradiol Immunoassay. Estradiol testing is performed using a different test methodology at [facility] than other [facility]. Direct resultcomparison should only be made within the same method. Performed By: #### 1 6128-1 #### SHAI Pickard ([id number]) [facility] ([facility]) [address] [place] [address] Follicle Diameter USon 02-20 Follicle scan performed with follicle measurements in report. RIS SECTRA ONLY Radiology Study observation (narrative) [facility] Work Phone: Follicle Diameter USOrdered By: Juan Chavarria on 02-21-2024 [facility] Work Phone: Luteinizing Hormone (LH)on Lutropin Qn 0.9 m[IU]/mL IU/L [facility] Comment on above: LH Reference Values Follicular Phase 1.5-10.0 Mid-Cycle 13.0-72.0 Luteal Phase 0.5-13.0 Menopause 15.0-65.0 Pre-puberty 0- 3.0 Children 0- 6.0 Adult Male 1.0- 9.0 Luteinizing Hormone is performed using the Faith Anagran Access Immunoassay. LH testing is performed using a different test methodology at [facility] than other [facility]. Direct result comparison should only be made within the same method. Lutropinon 02-21-2024 Lutropin Qn 0.9 IU/L Normal [facility] Comment on above: Result Comment: LH R eference Values Follicular Phase 1.5-10.0 Mid-Cycle 13.0-72.0 Luteal Phase 0.5-13.0 Menopause 15.0-65.0 Pre-puberty 0- 3.0 Children 0- 6.0 Adult Male 1.0- 9.0 Luteinizing Hormone is performed using the Faith Crowley Access Immunoassay. LH testing is performed using a different test methodology at [facility] than other [facility]. Direct result comparison should only be made within the same method. Performed By: #### 1 6128-1 #### SHAI Pickard ([id number]) [facility] ([facility]) [address] [place] [address] Lutropin Qnon 02-21-2024 [facility] Progesteroneon 02-21-2024 Progesterone [Mass/Vol] 1.3 ng/mL U [facility] Progesterone [Mass/Vol] 1.3 ng/mL Normal [facility] Comment on above: Order Comment: REF V ALUESMale <0.2-0.8Follicular Phase <0.2-1.5Luteal Phase 7.4-15.4Post Menopausal <0.2-0.21ST Trimester 12.0-84.02ND Trimester 10.2-58.83RD Trimester 46.5-160Progesterone is performed using the Faith Cristopher Access Immunoassay.Progesterone testing is performed using a different test methodology at [facility] than other [facility]. Direct result comparison should only be made within the same method. Performed By: #### 5 196-1 #### SHAI Pickard ([id number]) [facility] ([facility]) [address] [place] [address] Progesterone [Mass/Vol]on REF VALUES Male <0.2-0.8 Follicular Phase <0.2-1.5 Luteal Phase 7.4-15.4 Post Menopausal <0.2-0.2 1ST Trimester 12.0-84.0 2ND Trimester 10.2-58.8 3RD Trimester 46.5-160 Progesterone is performed using the Faith Crowley Access Immunoassay. Progesterone testing is performed using a different test methodology at [facility] than other [facility]. Direct result comparison should only be made within the same method. [facility] KELSY US PELVIS LIMITED FOLLIC LES-FOLLICLE STUDIES PERFORMEDon 02-21-2024 KELSY US PELVIS LIMITED FOLLICLES-FOLLICLE STUDIES PERFORMED Follicle scan performed with follicle measurements in report. Normal [facility] Estradiolon 02-20-2024 E2 [Mass/Vol] 3718 pg/mL Normal [facility] Comment on above: Order Comment: REF V ALUESFOLLICULAR PHASE 20-144MID CYCLE 64-357LUTEAL PHASE 56-214POSTMENOPAUSE < 32PREPUBERTY < 20FEMALE 10-18Y 8-110MALE 10-18Y < 20ADULT MALE < 40Estradiol measurement is performed using the Faith Anagran Access Estradiol Immunoassay. Estradiol testing is performed using a different test methodology at [facility] Direct resultcomparison should only be made within the same method. Performed By: #### 5 196-1 #### SHAI Pickard ([id number]) [facility] ([place] [address] Progesteroneon 02-20-2024 Progesterone [Mass/Vol] 1.4 ng/mL Normal U [facility] Comment on above: Order Comment: REF V ALUESMale <0.2-0.8Follicular Phase <0.2-1.5Luteal Phase 7.4-15.4Post Menopausal <0.2-0.21ST Trimester 12.0-84.02ND Trimester 10.2-58.83RD Trimester 46.5-160Progesterone is performed using the Faith Anagran Access Immunoassay.Progesterone testing is performed using a different test methodology at [facility]. Direct result comparison should only be made within the same method. Performed By: #### 5 196-1 #### SHAI Pickard ([id number]) [facility] ([facility]) [address] [place] [address] KELSY US PELVIS LIMITED FOLLIC LES-FOLLICLE STUDIES PERFORMEDon 02-20-2024 KELSY US PELVIS LIMITED FOLLICLES-FOLLICLE STUDIES PERFORMED Follicle scan performed with follicle measurements in report. Normal [facility] E2 [Mass/Vol]on 02-18-2024 REF VALUES FOLLICULAR PHASE 20-144 MID CYCLE 64-357 LUTEAL PHASE 56-214 POSTMENOPAUSE < 32 PREPUBERTY < 20 FEMALE 10-18Y 8-110 MALE 10-18Y < 20 ADULT MALE < 40 Estradiol measurement is performed using the Faith Cristopher Access Estradiol Immunoassay. Estradiol testing is performed using a different test methodology at [facility] than other [facility]. Direct result comparison should only be made within the same method. [facility] Estradiolon 02-18-2024 E2 [Mass/Vol] 1472 pg/mL [facility] E2 [Mass/Vol] 1472 pg/mL Normal [facility] Comment on above: Order Comment: REF V ALUESFOLLICULAR PHASE 20-144MID CYCLE 64-357LUTEAL PHASE 56-214POSTMENOPAUSE < 32PREPUBERTY < 20FEMALE 10-18Y 8-110MALE 10-18Y < 20ADULT MALE < 40Estradiol measurement is performed using the Faith Cristopher Access Estradiol Immunoassay. Estradiol testing is performed using a different test methodology at [facility] than [facility]. Direct resultcomparison should only be made within the same method. Performed By: #### 5 196-1 #### SHAI Pickard ([id number]) [facility] ([facility]) [address] [place] [address] Follicle Diameter USon 02-17 Follicle scan performed with follicle measurements in report. Trilaminar appearance to the endometrium is noted. Free fluid is noted in the right paraovarian space. Notably retroverted uterus. RIS SECTRA ONLY Radiology Study observation (narrative) [facility] Work Phone: Follicle Diameter USOrdered By: Leigh Ann Tuttle on 02-18-2024 [facility] Work Phone: KELSY US PELVIS LIMITED FOLLIC LES-FOLLICLE STUDIES PERFORMEDon 02-18-2024 KELSY US PELVIS LIMITED FOLLICLES-FOLLICLE STUDIES PERFORMED Follicle scan performed with follicle measurements in report. Trilaminar appearance to the endometrium is noted. Free fluid is noted in the right paraovarian space. Notably retroverted uterus. Normal [facility] E2 [Mass/Vol]on 02-16-2024 REF VALUES FOLLICULAR PHASE 20-144 MID CYCLE 64-357 LUTEAL PHASE 56-214 POSTMENOPAUSE < 32 PREPUBERTY < 20 FEMALE 10-18Y 8-110 MALE 10-18Y < 20 ADULT MALE < 40 Estradiol measurement is performed using the Faith Anagran Access Estradiol Immunoassay. Estradiol testing is performed using a different test methodology at [facility] than other [facility]. Direct result comparison should only be made within the same method. [facility] Estradiolon 02-16-2024 E2 [Mass/Vol] 639 pg/mL [facility] E2 [Mass/Vol] 639 pg/mL Normal [facility] Comment on above: Order Comment: REF V ALUESFOLLICULAR PHASE 20-144MID CYCLE 64-357LUTEAL PHASE 56-214POSTMENOPAUSE < 32PREPUBERTY < 20FEMALE 10-18Y 8-110MALE 10-18Y < 20ADULT MALE < 40Estradiol measurement is performed using the Faith Anagran Access Estradiol Immunoassay. Estradiol testing is performed using a different test methodology at [facility] than other [facility]. Direct resultcomparison should only be made within the same method. Performed By: #### 5 196-1 #### SHAI Pickard ([id number]) [facility] ([facility]) [address] [place] [address] KELSY US PELVIS LIMITED FOLLIC LES-FOLLICLE STUDIES PERFORMEDon 02-16-2024 KELSY US PELVIS LIMITED FOLLICLES-FOLLICLE STUDIES PERFORMED Follicle scan performed with follicle measurements in report. and Trilaminar appearance to the endometrium is noted. Normal [facility] E2 [Mass/Vol]on 02-09-2024 REF VALUES FOLLICULAR PHASE 20-144 MID CYCLE 64-357 LUTEAL PHASE 56-214 POSTMENOPAUSE < 32 PREPUBERTY < 20 FEMALE 10-18Y 8-110 MALE 10-18Y < 20 ADULT MALE < 40 Estradiol measurement is performed using the [employer] Access Estradiol Immunoassay. Estradiol testing is performed using a different test methodology at [facility] than other [facility]. Direct result comparison should only be made within the same method. [facility] Estradiolon 02-09-2024 E2 [Mass/Vol] pg/mL pg/mL [facility] E2 [Mass/Vol] pg/mL Normal [facility] Comment on above: Order Comment: REF V ALUESFOLLICULAR PHASE 20-144MID CYCLE 64-357LUTEAL PHASE 56-214POSTMENOPAUSE < 32PREPUBERTY < 20FEMALE 10-18Y 8-110MALE 10-18Y < 20ADULT MALE < 40Estradiol measurement is performed using the [employer] Access Estradiol Immunoassay. Estradiol testing is performed using a different test methodology at [facility] than other [facility]. Direct resultcomparison should only be made within the same method. Performed By: #### 5 196-1 #### SHAI Pickard ([id number]) [facility] ([facility]) [id number] [place], [place] [id number] Follicle Diameter USon 02-08 Follicle scan performed with follicle measurements in report. [facility] Radiology Study observation (narrative) [facility] Work Phone: Follicle Diameter USOrdered By: Juan Chavarria on 02-09-2024 [facility] Work Phone: Hematocrit Auto (Bld) [Volum e fraction]on 02-09-2024 Hematocrit (Bld) [Volume fraction] 42.9 % 36.0 - 46.0 % [facility] Interpretation and review of laboratory results Normal [facility] Hematocrit (Bld) [Volume fraction] 42.9 % Normal 36.0-46.0 [facility] Comment on above: Performed By: #### 4 544-3 #### JOSEPH ESQUIVEL ([id number]) [facility] ([facility]) [address] [place] [address] KELSY US PELVIS LIMITED FOLLIC LES-FOLLICLE STUDIES PERFORMEDon 02-09-2024 KELSY US PELVIS LIMITED FOLLICLES-FOLLICLE STUDIES PERFORMED Follicle scan performed with follicle measurements in report. Normal [facility] HCG ( test) Ql (U)o n 01-28-2024 Interpretation and review of laboratory results Normal [facility] Work Phone: Preg Test, Ur Negative Negative [facility] Work Phone: [facility] Work Phone: No Panel Informationon 01-27 Leigh [...] well, no immediate complications [facility] LAB RIS [facility] Work Phone: Surgical pathology studyon 0 01-28-2024 Surgical pathology study Pathology report.total SEE COMMENT Surgical Pathology Case: [id number] Authorizing Provider: Leigh Ann Tuttle MD Collected: 01/28/2024 1027 Ordering Location: [facility] Received: 01/28/2024 1027 [facility] Pathologist: Yamila Leo MD Specimen: ENDOMETRIUM POLYPECTOMY [...] specimen is entirely submitted in 1 cassette. JEK/[facility] IGP,APTIMA HPV,AGE GDLNon AGE GDLN ACOG TESTING Note . [facility] Comment on above: TESTS RESULT FLAG UN ITS REF RANGE LAB Clinician Provided Cytology Information Source.............Cervix;Endocervix No. of containers..01 ThinPrep Vial Age Algo ACOG Telma... -01 06 FLAG LEGEND: L-Low Normal,H-High Normal,LL-Alert Low,HH-Alert High <-Panic Low,>-Panic High,A-Abnormal,AA-Critical Abnormal Performed at: 01 =G [address] [place] [address] Nidhi Fay MD, IGP, RFX APTIMA HPV ASCU Note . [facility] Comment on above: TESTS RESULT FLAG U NITS REF RANGE LAB DIAGNOSIS: 02 NEGATIVE FOR INTRAEPITHELIAL LESION OR MALIGNANCY. Specimen adequacy: 02 Satisfactory for evaluation. Endocervical and/or squamous metaplastic cells (endocervical component) are present. Performed by: 02 Isac Masters Marketing Engineer ([facility]) . 02 Note: Note 02 The [...] High,A-Abnormal,AA-Critical Abnormal Performed at: 02 [facility] [address] [place] [address] Nidhi Fay MD, Performed at: =G - [facility] [id number] Assistant Superintendent For Curriculum: Nidhi Fay MD, Phone: [phone] Performed at: - [facility] [id number] Assistant Superintendent For Curriculum: Nidhi Fay MD, Phone: [phone] BRUSH-SPATULA CERVIX ENDOCERVIX [facility] Blood type and Indirect anti body screen panel (Bld)on 2023 ABO group Nom (Bld) O [facility] Blood group antibody screen Ql Negative [facility] D Ag Ql (Bld) Positive [facility] ABO group Nom (Bld) O Normal [facility] Comment on above: Performed By: #### 3 4532-2 #### JOSEPH ESQUIVEL ([id number]) [facility] ([facility]) [address] Blood group antibody screen Ql Negative [facility] Comment on above: Performed By: #### 3 4532-2 #### JOSEPH ESQUIVEL ([id number]) [facility] ([facility]) [address] D Ag Ql (Bld) Positive [facility] Comment on above: Performed By: #### 3 4532-2 #### JOSEPH ESQUIVEL ([id number]) [facility] ([facility]) [address] C. trachomatis and N. gonorr hoeae DNA EDELMIRA+probe Nom (Unsp spec)on 2023 C. trachomatis rRNA EDELMIRA+probe Ql (Unsp spec) Negative Normal Negative [facility] Comment on above: Order Comment: [...] By: #### 3 6903-3 #### SHAI Pickard ([id number]) [facility] ([facility]) [address] [place] [address] N. gonorrhoeae DNA Probe+sig amp Ql (Unsp spec) Negative Normal Negative [facility] Comment on above: Order Comment: The [...] By: #### 3 6903-3 #### SHAI Pickard ([id number]) [facility] ([facility]) [address] [place], [place] [address] HIV 1+2 Ab+HIV1 p24 Agon HIV 1+2 Ab+HIV1 p24 Ag IA Ql Non-Reactive Normal Nonreactive [facility] Comment on above: Order Comment: HIV A g/Ab screen is performed using the Siemens MedlumicsllSLEDVision HIV Ag/Ab Combo assay which detects the presence of HIV p24 antigen as well as antibodies to HIV-1 (Group M and O) and HIV-2. No laboratory evidence of HIV infection. If acute HIV infection is suspected, consider testing for HIV RNA by PCR (viral load). Performed By: #### 5 6888-1 #### SHAI Pickard ([id number]) [facility] ([facility]) [address] [place] [address] Hepatitis B virus surface Ag on 2023 HBV surface Ag IA Ql Non-Reactive Normal Nonreactive [facility] Comment on above: Result Comment: Biot in interference may cause falsely decreased results. Patients taking a Biotin dose of up to 5 mg/day should refrain from taking Biotin for 24 hours before sample collection. Providers may contact their local laboratory for further information. Performed By: #### 5 196-1 #### SHAI Pickard ([id number]) [facility] ([facility]) [address] [place] [address] Hepatitis C virus Abon 12-10 HCV Ab Ql (S) Non-Reactive Normal Nonreactive [facility] Comment on above: Result Comment: Resu lts from patients taking biotin supplements or receiving high-dose biotin therapy should be interpreted with caution due to possible interference with this test. Providers may contact their local laboratory for further information. Performed By: #### 1 6128-1 #### SHAI Pickard ([id number]) [facility] ([facility]) [address] [place], [place] [phone] Rubella virus IgG IA Qnon Rubella virus IgG IA Ql Positive Normal Negative U [facility] Comment on above: Order Comment: NEGAT [...] By: #### 5 334-8 #### SHAI Pickard ([id number]) [facility] ([facility]) [address] [place], [place] [address] Rubella virus IgG Qn (S) 1.2 IA Normal <=0.7 [facility] Comment on above: Order Comment: [...] Performed By: #### 5 334-8 #### SHAI HARRISON L ([id number]) [facility] ([facility]) [address] [place] [address] Treponema pallidum Ab.IgG+Ig Mon 2023 T. pallidum IgG+IgM IA Ql (S) Non-Reactive Normal Nonreactive [facility] Comment on above: Result Comment: No s ignificant level of Treponema pallidum antibody detected. Repeat testing in 2 to 4 weeks may be considered if early infection or incubating syphilis infection is suspected. Performed By: #### 4 7236-5 #### SHAI Pickard ([id number]) [facility] ([facility]) [address] [place], [place] [address] VZV IgG IA Ql (S)on 12-11-19 24 VARICELLA ZOSTER IGG INDEX 5.6 IA High <=0.8 [facility] Comment on above: Order Comment: NEGAT [...] By: #### 1 5410-4 #### SHAI Pickard ([id number]) [facility] ([facility]) [address] [place] [address] Varicella zoster virus Ab.Ig Biju 2023 VZV IgG IA Ql (S) Positive Abnormal Negative [facility] Comment on above: Order Comment: [...] By: #### 1 5410-4 #### SHAI Pickard ([id number]) [facility] ([facility]) [address] [place] [address] Ambulatory Visit Summaryon 0 10-02-2023 Ambulatory Visit Summary EVARIAZ SYDNEY R :1995 Visit Date:10/02/2023 Ambulatory Visit Instructions [...] knee anterior cruciate ligament allograft reconstruction with qboi-issmds-bose, debridment medial meniscus tear, patellofemoral chondroplasty-Grade I-II (07/28/2013), Tonsillectomy, tubes in the ears. Discharge Vitals Temperature (Oral) 36.8 ?C Heart Rate (Peripheral) 65 Blood Pressure 118/66 Height 162 cm Height 64 in Weight 76.7 kg Weight 168.74 lb BMI 29.23 What to do next Scheduled Follow-Up Appointments Thursday 7:20 AM EDT With: Princess Dumont Where: [facility] Primary Care Normal [facility] Family Medicine Office/Clini c Noteon 10-02-2023 [...] lot of blood work ordered by her TRAUMA SURGEON and we are going to go over [...] mg once day. She has been taking dqis-yce-edharyd magnesium at night since initiating Topamax. Weight management. The patient expresses a desire to lose weight and re-initiate her Adipex. She has previously tried Aryan coho-xme-bdwbezm but found it ineffective. She does not [...] arms or hands, as well as any boner meat strength weakness. She is agreeable trying vitamin [...] with me in (more content not included)... [facility] Comment on above: Result Comment: Elec tronically Signed By: Princess Dumont\.br\Date and Time Signed: 10/02/23 16:44 EDT\.br\Electronically Co-Signed By: Raj Chu\.br\Date and Time Co-Signed: 10/02/23 15:48 EDT Lab Reportson 10-02-2023 Lab Reports [id number] 02#1.00TIFF [facility] Patient Educationon 10-02-19 Patient Education BMI [...] numbers. This can be done either in Spanish (U.S.) or metric measurements. Note that charts and online BMI calculators are available to help you find your BMI quickly and easily without having to do these calculations yourself. To calculate your BMI in Spanish (U.S.) measurements: 1. Measure your weight in [...] for Disease Control and Prevention: www.cdc.gov ? [place] Heart Association: www.heart.org ? National Heart, Lung, and Blood [place]: www.nhlbi.nih.gov Summary ? Body mass index (BMI) is a number that is calculated from a person's weight and height. ? BMI may help estimate how much of a person's weight is composed of fat. BMI can help identify those who may be at higher risk for certain medical problems. ? BMI can be measured using Spanish measurements or metric measurements. ? BMI charts are used to identify whether you are underweight, normal weight, overweight, or obese. This information is not intended to replace advice given to you by your health care provider. Make sure you discuss any questions you have with your health care provider. Document Revised: 01/11/2020 Document Reviewed: 11/18/2019 [employer] Patient Education ? 2022 [employer]. Dermatology Eczema Eczema refers to a group [...] symptoms? S (more content not included)... Normal [facility] Transfer Inon 09-02-2023 Transfer In [id number] 2#1.00TIFF Normal [facility] Office/Clini c Noteon 08-29-2023 [...] and encouraged her to go see her TRAUMA SURGEON. The patient was overweight with an elevated BMI. Her laboratories I ordered were not performed, and she did not do the x-ray that I ordered either. She presents for headaches again. Cervicalgia and persistent headaches. The patient underwent cervical x-ray in 02/20/2023 in [place], the day after her last visit on [...] in 06/2023 or 07/2023 and done at [place]. She is uncertain if cholesterol levels were checked. Her bowel movements and urination are normal. She and her switched clinics where she is the patient for an IVF and are waiting for an appointment within the next 2 months. 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 Ibuprofen every 6 to 8 hours. [...] appearing. EN (more content not included)... Normal [facility] Comment on above: Result Comment: Elec tronically Signed By: Princess Dumont\.rabia\Date and Time Signed: 08/29/23 15:46 EDT\.br\Electronically Co-Signed [...] numbers. This can be done either in Spanish (U.S.) or metric measurements. Note that charts and online BMI calculators are available to help you find your BMI quickly and easily without having to do these calculations yourself. To calculate your BMI in Spanish (U.S.) measurements: 1. Measure your weight in [...] for Disease Control and Prevention: www.cdc.gov ? [place] Heart Association: www.heart.org ? National Heart, Lung, and Blood [place]: www.nhlbi.nih.gov Summary ? Body mass index (BMI) is a number that is calculated from a person's weight and height. ? BMI may help estimate how much of a person's weight is composed of fat. BMI can help identify those who may be at higher risk for certain medical problems. ? BMI can be measured using Spanish measurements or metric measurements. ? BMI charts are used to identify whether you are underweight, normal weight, overweight, or obese. This information is not intended to replace advice given to you by your health care provider. Make sure you discuss any questions you have with your health care provider. Document Revised: 01/11/2020 Document Reviewed: 11/18/2019 [employer] Patient Education ? 2022 [employer] Endocrinology Carbohydrate Counting for Diabetes Mellitus, [...] contain carbohydra (more content not included)... Normal [facility] DHEA SERUMon 07-31-2022 Dehydroepiandrosterone (DHEA) 429 ng/dL Normal 31-701 [facility] Comment on above: Performed By: #### D MILTON. #### [facility] [address] [place] [address] Dr. Meghna Alas ANTI-MULLERIAN HORMONEon Anti-Mullerian Hormone (AMH) 2.01 ng/mL Normal [facility] Comment on above: Result Comment: For assays employing antibodies, the possibility exists for interference by heterophile antibodies in the samples.1 1.Ramon Calderon Interferences in Immunoassays - still a threat. Clin. Chem. 2000; 46: 0978-1935. This test was developed and its performance characteristics determined by [employer]. It has not been cleared or approved by the Food and Drug Administration. Reference Range: Females 20 - 25y: 1.23 - 11.51 Median 4.70 AMH concentrations of >= 1.06 ng/mL is correlated with a better response to ovarian stimulation, produced more retrievable oocytes and higher odds of live according to Lindseyer et al. Fertility and Sterility. 2010: 94:3497-7867. The current AMH test method correlates with [...] tumor. Performed By: #### A JOSE #### [facility] [address] [address] [address] Meghna Alas PAP ACOG PANEL 2: 21 to 29on 07-29-2022 . . Normal [facility] Comment on above: Performed By: #### 4 [id number] ####[facility] [address] [id number] Alas Age Gdln ACOG Testing - Normal [facility] Comment on above: Performed By: #### 4 012162 ####[facility] [address] [id number] Alas DIAGNOSIS: Comment [facility] Comment on above: Result Comment: NEGA TIVE FOR INTRAEPITHELIAL LESION OR MALIGNANCY. Performed By: #### 4 272603 ####[facility] [address] [address]DrBetito Alas Methodology: Comment [facility] Comment on above: Result Comment: This liquid based ThinPrep(R) pap test was screened with the use of an image guided system. Performed By: #### 4 [id number] ####[facility] [address] [place], [place] [address]DrBetito Alas Note: Comment [facility] Comment on above: Result Comment: The Pap smear is a screening test designed to aid in the detection of premalignant and malignant conditions of the uterine cervix. It is not a diagnostic procedure and should not be used as the sole means of detecting cervical cancer. Both false-positive and false-negative reports do occur. . Performed By: #### 4 [id number] ####[facility] [address] [id number] Alas Performed by: Comment Normal [facility] Comment on above: Result Comment: Antonella Villarreal, Supervisory Marketing Engineer (ASCP) Performed By: #### 4 375559 ####[facility] [address] [address]DrBetito Alas Reflex Criteria: Comment [facility] Comment on above: Result Comment: The HPV DNA reflex criteria were not met with this specimen result therefore, no HPV testing was performed. . Performed By: #### 4 [id number] ####[facility] [address] [place], [place] [address]CnDr. Meghna Alas Specimen adequacy: Comment Normal [facility] Comment on above: Result Comment: Sati sfactory for evaluation. Endocervical and/or squamous metaplastic cells (endocervical component) are present. Performed By: #### 4 [id number] ####[facility] [address] [place], [place] [address]XuDr. Meghna Alas DHEA-SULFATEon 07-27-2022 DHEA-Sulfate 195.0 ug/dL Normal 110.0-431.7 [facility] Comment on above: Performed By: #### D HEASUL #### [facility] [address] [place] [address] Dr. Meghna Alas FSHon 07-27-2022 FSH 11.4 mIU/mL Normal [facility] Comment on above: Result Comment: Adul t Female: Follicular phase 3.5 - 12.5 Ovulation phase 4.7 - 21.5 Luteal phase 1.7 - 7.7 Postmenopausal 25.8 - 134.8 Performed By: #### L BCFS #### [facility] [address] [place] [address] Dr. Meghna Alas LUTEINIZING HORMONE (LH)on 0 07-27-2022 LH 61.8 mIU/mL Normal [facility] Comment on above: Result Comment: Adul t Female: Follicular phase 2.4 - 12.6 Ovulation phase 14.0 - 95.6 Luteal phase 1.0 - 11.4 Postmenopausal 7.7 - 58.5 Performed By: #### L BCLH #### [facility] [address] [id number] Meghna Alas US PELVIS AND TRANSVAGon [...] by: RACQUEL UNLU Date: 2022-07-27 08:10 Normal [facility] CBC AUTO DIFFon 07-26-2022 BASO # 0.1 103/ul Normal 0.0-0.1 [facility] Comment on above: Performed By: #### C BC #### [facility] [address] [place] [address] Dr. Meghna Alas Basophils/100 WBC (Bld) 0.8 % Normal 0.2-2.0 [facility] Comment on above: Performed By: #### C BC #### [facility] [address] [place] [address] Dr. Meghna Alas EO # 0.2 103/ul Normal 0.0-0.7 [facility] Comment on above: Performed By: #### C BC #### [facility] [address] [place] [address] Dr. Meghna Alas Eosinophils/100 WBC (Bld) 3.7 % Normal 0.9-7.0 [facility] Comment on above: Performed By: #### C BC #### [facility] [address] [place] [address] Dr. Meghna Alas Erythrocyte distribution width (RBC) [Ratio] 11.7 % Normal 11.0-15.0 [facility] Comment on above: Performed By: #### C BC #### [facility] [address] [place] [address] Dr. Meghna Alas Hematocrit (Bld) [Volume fraction] 43.6 % Normal 36.0-48.0 [facility] Comment on above: Performed By: #### C BC #### [facility] [address] [place] [address] Dr. Meghna Alas Hemoglobin (Bld) [Mass/Vol] 14.9 g/dL Normal 12.0-16.0 [facility] Comment on above: Performed By: #### C BC #### [facility] [address] [place] [address] Dr. Meghna Alas IG # 0.02 10e3/ul Normal 0.00-0.03 [facility] Comment on above: Performed By: #### C BC #### [facility] [address] [place] [address] Dr. Meghna Alas IG % 0.3 % Normal 0.0-0.5 [facility] Comment on above: Performed By: #### C BC #### [facility] [address] [place] [address] Dr. Meghna Alas LYMPH # 1.7 103/ul Normal 1.2-3.8 [facility] Comment on above: Performed By: #### C BC #### [facility] [address] [place] [address] Dr. Meghna Alas Lymphocytes/100 WBC (Bld) 27.7 % Normal 20.5-60.0 [facility] Comment on above: Performed By: #### C BC #### [facility] [address] [place] [address] Dr. Meghna Alas MANUAL DIFF REQ NO Normal [facility] Comment on above: Performed By: #### C BC #### [facility] [address] [place] [address] Dr. Meghna Alas MCH (RBC) [Entitic mass] 30.7 pg Normal 26.7-34.0 [facility] Comment on above: Performed By: #### C BC #### [facility] [address] [place] [address] Dr. Meghna Alas MCHC (RBC) [Mass/Vol] 34.2 g/dL Normal 29.9-35.2 [facility] Comment on above: Performed By: #### C BC #### [facility] [address] [place] [address] Dr. Meghna Alas MCV (RBC) [Entitic vol] 89.7 fL Normal 81.0-99.0 [facility] Comment on above: Performed By: #### C BC #### [facility] [address] [place] [address] Dr. Meghna Alas MONO # 0.4 103/ul Normal 0.3-0.8 [facility] Comment on above: Performed By: #### C BC #### [facility] [address] [place] [address] Dr. Meghna Alas Monocytes/100 WBC (Bld) 7.1 % Normal 1.7-12.0 [facility] Comment on above: Performed By: #### C BC #### [facility] [address] [place] [address] Dr. Meghna Alas NEUT # 3.7 103/ul Normal 1.4-6.5 [facility] Comment on above: Performed By: #### C BC #### [facility] [address] [place] [address] Dr. Meghna Alas Neutrophils/100 WBC (Bld) 60.4 % Normal 43.0-75.0 [facility] Comment on above: Performed By: #### C BC #### [facility] [address] [place] [address] Dr. Meghna Alas Platelet mean volume (Bld) [Entitic vol] 11.3 fL Normal 9.5-13.5 [facility] Comment on above: Performed By: #### C BC #### [facility] [address] [place] [address] Dr. Meghna Alas PLT 154 103/ul Normal 150-450 [facility] Comment on above: Performed By: #### C BC #### [facility] [address] [place] [address] Dr. Meghna Alas RBC 4.86 106/ul Normal 4.20-5.40 [facility] Comment on above: Performed By: #### C BC #### [facility] [address] [address] [address] Meghna Alas WBC 6.2 103/ul Normal 4.0-11.0 [facility] Comment on above: Performed By: #### C BC #### [facility] [address] [place] [address] Dr. Meghna Alas FREE T4on 07-26-2022 Free T4 [Mass/Vol] 1.04 ng/dL Normal 0.76-1.[address] [facility] Comment on above: Performed By: #### F T4 #### [facility] [address] [place] [address] Dr. Meghna Alas GLYCOHEMOGLOBIN A1Con 2022 ADA RECOMMENDATION SEE BELOW Normal [facility] Comment on above: Result Comment: ADA RECOMMENDED LIMIT 4.0 - 6.0 ADA THERAPEUTIC TARGET < 7.0 ACTION SUGGESTED > 7.0 Performed By: #### A 1C #### [facility] [address] [place] [address] Dr. Meghna Alas Glucose [Mass/Vol] 82 mg/dL Normal [facility] Comment on above: Performed By: #### A 1C #### [facility] [address] [place] [address] Dr. Meghna Alas HbA1c (Bld) [Mass fraction] 4.5 % Normal 4.5-6.2 [facility] Comment on above: Performed By: #### A 1C #### [facility] [address] [place] [address] Dr. Meghna Alas TSHon 07-26-2022 TSH 1.522 uIU/mL Normal 0.358-3.740 [facility] Comment on above: Performed By: #### T SH #### [facility] [address] [place] [address] Dr. Meghna Alas Vital Signs Date Time Vital Sign Value Performing Clinician Facility 01-31-2025 [id number] Body mass index (BMI) [Ratio] 40.57 kg/m2 Maria M Guerrero CLINICAL LAB SCIENTIST Work Phone: [facility] 01-31-2025 14:07-0400 Body weight 103.87 kg Maria M Cesar CLINICAL LAB SCIENTIST Work Phone: [facility] 01-31-2025 14:07-0400 Diastolic blood pressure 76 mm[Hg] Maria M Cesar CLINICAL LAB SCIENTIST Work Phone: [facility] 01-31-2025 14:07-0400 Systolic blood pressure 122 mm[Hg] Maria M Cesar CLINICAL LAB SCIENTIST Work Phone: [facility] 01-16-2025 15:13-0400 Body mass index (BMI) [Ratio] 40.21 kg/m2 Layo Sherwin DO Work Phone: [facility] 01-16-2025 15:13-0400 Body weight 102.97 kg Layo Sherwin DO Work Phone: [facility] 01-16-2025 15:13-0400 Diastolic blood pressure 70 mm[Hg] Layo Sherwin DO Work Phone: [facility] 01-16-2025 15:13-0400 Systolic blood pressure 110 mm[Hg] Layo Sherwin DO Work Phone: [facility] 01-03-2025 10:15-0400 Body mass index (BMI) [Ratio] 39.47 kg/m2 Layo Sherwin DO Work Phone: [facility] 01-03-2025 10:15-0400 Body weight 101.06 kg Layo Sherwin DO Work Phone: [facility] 01-03-2025 10:15-0400 Diastolic blood pressure 74 mm[Hg] Layo Sherwin DO Work Phone: [facility] 01-03-2025 10:15-0400 Systolic blood pressure 118 mm[Hg] Layo Sherwin DO Work Phone: [facility] 12-19-2024 10:06-0400 Body mass index (BMI) [Ratio] 38.76 kg/m2 Layo Sherwin DO Work Phone: [facility] 12-19-2024 10:06-0400 Body weight 99.25 kg Layo Sherwin DO Work Phone: [facility] 12-19-2024 10:06-0400 Diastolic blood pressure 70 mm[Hg] Layo Sherwin DO Work Phone: [facility] 12-19-2024 10:06-0400 Systolic blood pressure 116 mm[Hg] Layo Sherwin DO Work Phone: [facility] 12-06-2024 08:33-0400 Body mass index (BMI) [Ratio] 38.09 kg/m2 Layo Sherwin DO Work Phone: [facility] 12-06-2024 08:33-0400 Body weight 97.52 kg Layo Sherwin DO Work Phone: [facility] 12-06-2024 08:33-0400 Diastolic blood pressure 70 mm[Hg] Layo Sherwin DO Work Phone: [facility] 12-06-2024 08:33-0400 Systolic blood pressure 100 mm[Hg] Layo Sherwin DO Work Phone: [facility] 11-08-2024 14:59-0400 Body mass index (BMI) [Ratio] 35.59 kg/m2 Layo Sherwin DO Work Phone: [facility] 11-08-2024 14:59-0400 Body weight 91.13 kg Layo Sherwin DO Work Phone: [facility] 11-08-2024 14:59-0400 Diastolic blood pressure 80 mm[Hg] Layo Sherwin DO Work Phone: [facility] 11-08-2024 14:59-0400 Systolic blood pressure 122 mm[Hg] Layo Sherwin DO Work Phone: [facility] 10-17-2024 13:08-0400 Body mass index (BMI) [Ratio] 35.52 kg/m2 Layo Sherwin DO Work Phone: [facility] 10-17-2024 13:08-0400 Body weight 90.95 kg Layo Sherwin DO Work Phone: [facility] 10-17-2024 13:08-0400 Diastolic blood pressure 82 mm[Hg] Layo Sherwin DO Work Phone: [facility] 10-17-2024 13:08-0400 Systolic blood pressure 126 mm[Hg] Layo Sherwin DO Work Phone: [facility] 10-11-2024 14:41-0400 Body mass index (BMI) [Ratio] 35.22 kg/m2 Layo Sherwin DO Work Phone: [facility] 10-11-2024 14:41-0400 Body weight 90.17 kg Layo Sherwin DO Work Phone: [facility] 10-11-2024 14:41-0400 Diastolic blood pressure 74 mm[Hg] Layo Sherwin DO Work Phone: [facility] 10-11-2024 14:41-0400 Systolic blood pressure 112 mm[Hg] Layo Sherwin DO Work Phone: [facility] 09-06-2024 15:31-0400 Body mass index (BMI) [Ratio] 33.17 kg/m2 Brandy Sheehan PA Work Phone: [facility] 09-06-2024 15:31-0400 Body weight 84.94 kg Brandy Sheehan PA Work Phone: [facility] 09-06-2024 15:31-0400 Diastolic blood pressure 82 mm[Hg] Brandy [place] PA Work Phone: [facility] 09-06-2024 15:31-0400 Systolic blood pressure 110 mm[Hg] Brandy Sissy PA Work Phone: [facility] 08-08-2024 13:08-0400 Body mass index (BMI) [Ratio] 32.2 kg/m2 Layo Sherwin DO Work Phone: [facility] 08-08-2024 13:08-0400 Body weight 82.46 kg Layo Sherwin DO Work Phone: [facility] 08-08-2024 13:08-0400 Diastolic blood pressure 64 mm[Hg] Layo Sherwin DO Work Phone: [facility] 08-08-2024 13:08-0400 Systolic blood pressure 100 mm[Hg] Layo Sherwin DO Work Phone: [facility] 07-29-2024 09:53-0400 Body mass index (BMI) [Ratio] 31.18 kg/m2 [facility] 07-29-2024 09:53-0400 Body weight 79.83 kg [facility] Nurse [facility] 07-29-2024 09:53-0400 Diastolic blood pressure 72 mm[Hg] [facility] Nurse [facility] 07-29-2024 09:53-0400 Systolic blood pressure 118 mm[Hg] [facility] Nurse [facility] 04-06-2024 14:04-0500 Blood Pressure [facility] 04-06-2024 14:04-0500 Diastolic blood pressure 74 mm[Hg] Mallory Jauregui [facility] 04-06-2024 14:04-0500 Heart rate 80 /min Mallory Juventino [facility] 04-06-2024 14:04-0500 SaO2% (BldA) [Mass fraction] 100 % [facility] 04-06-2024 14:04-0500 Systolic blood pressure 108 mm[Hg] Mallory Jauregui [facility] 03-22-2024 10:45-0500 Diastolic blood pressure 62 mm[Hg] Juan Chavarria MD Work Phone: [facility] 03-22-2024 10:45-0500 Heart rate 65 /min Juan Chavarria MD Work Phone: 7(256)455-641537 [place] [address] 03-22-2024 10:45-0500 Respiratory rate 17 /min Juan Chavarria MD Work Phone: 3(578)540-536937 [place] [address] 03-22-2024 10:45-0500 SaO2% (BldA) [Mass fraction] 100 % Juan Chavarria MD Work Phone: 9(226)428-691851 [place] [address] 03-22-2024 10:45-0500 Systolic blood pressure 94 mm[Hg] Juan Chavarria MD Work Phone: 8(658)701-483451 [place] [address] 03-22-2024 09:45-0500 Body temperature 97.3 [degF] Juan Chavarria MD Work Phone: 5(745)378-341251 [place] [address] 03-22-2024 08:29-0500 Body height 160 cm Juan Chavarria MD Work Phone: 1(022)181-845551 [place] [address] 03-22-2024 08:29-0500 Body mass index (BMI) [Ratio] 29.25 kg/m2 Juan Chavarria MD Work Phone: 4(386)750-203651 [place] [address] 03-22-2024 08:29-0500 Body weight 74.9 kg Juan Chavarria MD Work Phone: 9(018)649-234451 [place] [address] 02-23-2024 09:49-0400 Body temperature 97.7 [degF] Juan Chavarria MD Work Phone: 8(438)631-234751 [place] [address] 02-23-2024 09:49-0400 Diastolic blood pressure 65 mm[Hg] Juan Chavarria MD Work Phone: 2(046)054-616351 [place] [address] 02-23-2024 09:49-0400 Heart rate 94 /min Juan Chavarria MD Work Phone: 4(216)014-862051 [place] [address] 02-23-2024 09:49-0400 Respiratory rate 22 /min Juan Chavarria MD Work Phone: 1(766)370-404751 [place] [address] 02-23-2024 09:49-0400 SaO2% (BldA) [Mass fraction] 100 % Juan Chavarria MD Work Phone: 5(903)250-325851 [place] [address] 02-23-2024 09:49-0400 Systolic blood pressure 102 mm[Hg] Juan Chavarria MD Work Phone: [facility] 02-23-2024 07:27-0400 Body height 160 cm Juan Chavarria MD Work Phone: [facility] 02-23-2024 07:27-0400 Body mass index (BMI) [Ratio] 29.41 kg/m2 Juan Chavarria MD Work Phone: [facility] 02-23-2024 07:27-0400 Body weight 75.3 kg Juan Chavarria MD Work Phone: [facility] 01-28-2024 10:31-0400 Diastolic blood pressure 59 mm[Hg] Leigh Ann Tuttle MD Work Phone: [facility] 01-28-2024 10:31-0400 Heart rate 71 /min Leigh Ann Tuttle MD Work Phone: [facility] 01-28-2024 10:31-0400 Respiratory rate 20 /min Leigh Ann Tuttle MD Work Phone: [facility] 01-28-2024 10:31-0400 SaO2% (BldA) [Mass fraction] 100 % Leigh Ann Tuttle MD Work Phone: [facility] 01-28-2024 10:31-0400 Systolic blood pressure 101 mm[Hg] Leigh Ann Tuttle MD Work Phone: [facility] 01-28-2024 09:31-0400 Body temperature 98.1 [degF] Leigh Ann Tuttle MD Work Phone: [facility] 01-28-2024 08:48-0400 Body height 160 cm Leigh Ann Tuttle MD Work Phone: [facility] 01-28-2024 08:48-0400 Body mass index (BMI) [Ratio] 29.21 kg/m2 Leigh Ann Tuttle MD Work Phone: [facility] 01-28-2024 08:48-0400 Body weight 74.8 kg Leigh Ann Tuttle MD Work Phone: [facility] 01-14-2024 10:52-0400 Body mass index (BMI) [Ratio] 29.43 kg/m2 Brandy Sheehan PA Work Phone: [facility] 01-14-2024 10:52-0400 Body weight 75.35 kg Barndy Sissy PA Work Phone: [facility] 01-14-2024 10:52-0400 Diastolic blood pressure 70 mm[Hg] Brandy Sissy PA Work Phone: [facility] 01-14-2024 10:52-0400 Systolic blood pressure 120 mm[Hg] Brandy Sheehan PA Work Phone: [facility] 12-28-2023 10:09-0400 Body height 160 cm Juan Chavarria MD Work Phone: [facility] 12-28-2023 10:09-0400 Body mass index (BMI) [Ratio] 30.11 kg/m2 Juan Chavarria MD Work Phone: [facility] 12-28-2023 10:09-0400 Body weight 77.11 kg Juan Chavarria MD Work Phone: [facility] 12-28-2023 10:09-0400 Diastolic blood pressure 81 mm[Hg] Juan Chavarria MD Work Phone: [facility] 12-28-2023 10:09-0400 Heart rate 62 /min Juan Chavarria MD Work Phone: [facility] 12-28-2023 10:09-0400 Systolic blood pressure 119 mm[Hg] Juan Chavarria MD Work Phone: [facility] 2023 08:46-0400 Body height 160 cm Trish Thorpe CHIEF LIBRARIAN EXTENSION DEPARTMENT-DIVINITY TEACHER Work Phone: [facility] 2023 08:46-0400 Body mass index (BMI) [Ratio] 29.23 kg/m2 Trish Thorpe APRN-DIVINITY TEACHER Work Phone: [facility] 2023 08:46-0400 Body weight 74.84 kg Trish Thorpe CHIEF LIBRARIAN EXTENSION DEPARTMENT-DIVINITY TEACHER Work Phone: [facility] 2023 08:46-0400 Diastolic blood pressure 67 mm[Hg] Trish Thorpe CHIEF LIBRARIAN EXTENSION DEPARTMENT-DIVINITY TEACHER Work Phone: [facility] 2023 08:46-0400 Heart rate 72 /min Trish Thorpe CHIEF LIBRARIAN EXTENSION DEPARTMENT-DIVINITY TEACHER Work Phone: [facility] 2023 08:46-0400 Systolic blood pressure 122 mm[Hg] Trish Thorpe CHIEF LIBRARIAN EXTENSION DEPARTMENT-DIVINITY TEACHER Work Phone: [facility] 10-02-2023 11:14-0400 Blood Pressure Location [facility] R[facility] 10-02-2023 11:14-0400 Body temperature 98.24 [degF] [facility] 10-02-2023 11:14-0400 Diastolic blood pressure 66 mm[Hg] Princess R[facility] 10-02-2023 11:14-0400 Heart rate 65 /min Princess Rapp [facility] 10-02-2023 11:14-0400 SaO2% (BldA) [Mass fraction] 98 % Princess Rapp [facility] 10-02-2023 11:14-0400 Systolic blood pressure 118 mm[Hg] Princess R[facility] 08-27-2023 17:44-0400 Blood Pressure Location Princess Rapp [facility] 08-27-2023 17:44-0400 Body temperature 98.06 [degF] Princess Rapp [facility] 08-27-2023 17:44-0400 Diastolic blood pressure 76 mm[Hg] Princess Rapp [facility] 08-27-2023 17:44-0400 Heart rate 85 /min Princess Rapp [facility] 08-27-2023 17:44-0400 Respiratory rate 14 /min Princess Rapp [facility] 08-27-2023 17:44-0400 SaO2% (BldA) [Mass fraction] 99 % Princess Rapp [facility] 08-27-2023 17:44-0400 Systolic blood pressure 110 mm[Hg] Princess Rapp [facility] 02-19-2023 07:41-0400 Body temperature 97.7 [degF] Princess Rapp [facility] 02-19-2023 07:41-0400 Diastolic blood pressure 70 mm[Hg] Princess Rapp [facility] 02-19-2023 07:41-0400 Heart rate 81 /min Princess Rapp [facility] 02-19-2023 07:41-0400 SaO2% (BldA) [Mass fraction] 99 % Princess Rapp [facility] 02-19-2023 07:41-0400 Systolic blood pressure 110 mm[Hg] [facility] R[facility] 07-24-2021 16:57-0400 Blood Pressure Location Leigh Ann Covington [facility] 07-24-2021 16:57-0400 Body temperature 97.7 [degF] Leigh Ann Covington [facility] 07-24-2021 16:57-0400 Diastolic blood pressure 68 mm[Hg] Leigh Ann C[place]ton [facility] 07-24-2021 16:57-0400 Heart rate 88 /min Leigh Ann C[place]ton [facility] 07-24-2021 16:57-0400 SaO2% (BldA) [Mass fraction] 99 % Leigh Ann C[place]ton [facility] 07-24-2021 16:57-0400 Systolic blood pressure 122 mm[Hg] Leigh Ann C[place]ton [facility] Encounters Encounter Date Encounter Type Care Provider Facility Start: 02-01-2025 End: 02-01-2025 Clinisync Result Encounter Layo Sherwin DO Work Phone: [facility] Unsolicited Start: 02-01-2025 End: 02-01-2025 Clinisync Result Encounter Layo Sherwin DO Work Phone: [facility] Unsolicited Start: 01-31-2025 End: 01-31-2025 Bamboo flowsheet Maria M Guerrero CLINICAL LAB SCIENTIST Work Phone: [facility] Start: 01-31-2025 End: 01-31-2025 Bamboo flowsheet Maria M Guerrero CLINICAL LAB SCIENTIST Work Phone: [facility] Start: 01-31-2025 End: 01-31-2025 flow sheet Maria M Guerrero CLINICAL LAB SCIENTIST Work Phone: [facility] Comment on above: Third trimester preg rehan ([facility]); 35 weeks gestation of ([facility]); Encounter for in vitro fertilization Start: 01-25-2025 End: 01-25-2025 Clinisync Result Encounter [...] Phone: [facility]ARI[facility] Comment on above: 33 weeks gestation o f ([facility]); Third trimester ([facility]); Group B streptococcal infection; resulting from in vitro fertilization in first trimester ([facility]) Start: 01-16-2025 End: 01-16-2025 ambulatory LAYO SHERWIN Not Available Start: 01-16-2025 End: 01-16-2025 Bamboo flowsheet Layo Sherwin DO Work Phone: [facility] Start: 01-16-2025 End: 01-16-2025 Bamboo flowsheet Layo Sherwin DO Work Phone: [facility] Start: 01-10-2025 End: 01-10-2025 Clinisync Result Encounter Layo Sherwin DO Work Phone: [facility] External Department Unsolicited Start: 01-10-2025 End: 01-10-2025 Clinisync Result Encounter Layo Sherwin DO Work Phone: [facility] External [facility] Unsolicited Start: 01-03-2025 End: 01-03-2025 Bamboo flowsheet Layo Sherwin DO Work Phone: [facility] Start: 01-03-2025 End: 01-03-2025 Bamboo flowsheet Layo Sherwin DO Work Phone: [facility] Start: 01-03-2025 End: 01-03-2025 flow sheet Layo Sherwin DO Work Phone: [facility] Comment on above: Third trimester preg rehan ([facility]); 31 weeks gestation of ([facility]); resulting from in vitro fertilization in third trimester ([facility]) Start: 01-03-2025 End: 01-03-2025 ambulatory LAYO SHERWIN Not Available Start: 12-19-2024 End: 12-19-2024 flow sheet Layo Sherwin DO Work Phone: [facility] Comment on above: 29 weeks gestation o f ([facility]); Third trimester ([facility]); Leukocytes in urine; Other [...] sheet Layo Sherwin DO Work Phone: [facility] Comment on above: 27 weeks gestation o f ([facility]); Second trimester ([facility]) Start: 12-06-2024 End: 12-06-2024 [...] Comment on above: Second trimester pre gnancy ([facility]); 26 weeks gestation of ([facility]); Diabetes mellitus screening Start: [...] pain without sciatica (Primary Dx); Second trimester ([facility]); 20 weeks gestation of ([facility]) Start: 10-17-2024 End: 10-17-2024 [...] Ultrasound 1 Valeria Hay Comment on above: ([facility]) Start: 10-07-2024 End: 10-07-2024 ambulatory LAYO JUSTICE [facility] Start: 09-22-2024 End: 09-22-2024 ambulatory BRANDY [...] End: 07-11-2024 Patient encounter procedure Donya Abernathy CHIEF LIBR[employer]IAN [employer]ION DEPARTMENT-DIVINITY TEACHER Work Phone: [facility] Hay Comment on above: Fertility testing (P rimary Dx); Encounter to determine viability of , single or unspecified fetus Start: 07-11-2024 End: 07-11-[address] [facility] Start: 06-30-2024 End: 06-30-2024 [facility] Start: 06-23-2024 End: 06-23-2024 [facility] Start: 06-23-2024 End: 06-23-2024 [facility] Start: 06-13-2024 End: 06-13-2024 Subsequent hospital visit by physician Juan Chavarria MD Work Phone: [facility] Hay Comment on above: Encounter for assist ed reproductive fertility cycle Start: 06-13-2024 End: 06-13-2024 [facility] Start: 06-07-2024 End: 06-07-2024 [facility] Start: 06-06-2024 End: 06-06-2024 [facility] Start: 06-06-2024 End: 06-06-2024 Professional / ancillary services management Myles Pichardo Ultrasound [facility] Comment on above: Female infertility Start: 06-06-2024 End: 06-06-[address] [facility] Start: 05-23-2024 End: 05-23-2024 [facility] Start: 04-06-2024 ambulatory Mallory Jauregui Faci lity[facility] Start: 04-06-2024 End: 04-06-2024 Patient encounter procedure Mallory Jauregui [facility] Start: 03-22-2024 End: 03-22-2024 Subsequent hospital visit by physician Juan Chavarria MD Work Phone: [facility] Comment on above: Encounter for assist ed reproductive fertility cycle Start: 03-22-2024 End: 03-22-2024 [facility] Start: 03-21-2024 End: 03-21-2024 ambulatory [facility] Start: 03-20-2024 End: 03-20-2024 Professional / ancillary services management Mac [id number] [facility] Hay Comment on above: Female infertility Start: 03-20-2024 End: 03-20-2024 [facility] Melly [facility] Start: 03-19-2024 End: 03-19-2024 Professional / ancillary services management Mac [id number] [facility] Hay Comment on above: Female infertility Start: 03-19-2024 End: 03-19-[address] [facility] Start: 03-17-2024 End: 03-17-2024 [facility] Start: 03-17-2024 End: 03-17-2024 Professional / ancillary services management Mac [id number] Kelsy Ultrasound Valeria Hay Comment on above: Female infertility Start: 03-17-2024 End: 03-17-[address] [facility] Start: 03-15-2024 End: 03-15-2024 [facility] Start: 03-15-2024 End: 03-15-[address] [facility] Start: 03-15-2024 End: 03-15-2024 Professional / ancillary services management Mac [id number] [facility] Hay Comment on above: Female infertility Start: 03-09-2024 End: 03-09-2024 ambulatory [facility] Start: 03-09-2024 End: 03-09-2024 Patient encounter status [facility] Start: 03-09-2024 End: 03-09-2024 Professional / ancillary services management Mac [id number] [facility] Hay Comment on above: Female infertility; Pre-procedure lab exam Start: 03-09-2024 End: 03-09-2024 ambulatory AMERICA QUINTANILLA [facility] Start: 02-23-2024 End: 02-23-2024 Subsequent hospital visit by physician Juan Chavarria MD Work Phone: [facility] Hay Comment on above: Encounter for assist ed reproductive fertility cycle Start: 02-23-2024 End: 02-23-2024 ambulatory JUAN CHAVARRIA [facility] Start: 02-22-2024 End: 02-22-2024 ambulatory [facility] Start: 02-21-2024 End: 02-21-2024 Professional / ancillary services management Mac [id number] Kelsy Ultrasound Valeria Hay Comment on above: Female infertility Start: 02-21-2024 End: 02-21-2024 ambulatory [facility] Start: 02-20-2024 End: 02-20-2024 ambulatory [facility] Start: 02-20-2024 End: 02-20-2024 Professional / ancillary services management Mac [id number] Kelsy Ultrasound Valeria Hay Comment on above: Female infertility Start: 02-20-2024 End: 02-20-2024 ambulatory [facility] Start: 02-18-2024 End: 02-18-2024 ambulatory [facility] Start: 02-18-2024 End: 02-18-2024 Professional / ancillary services management Mac [id number] Kelsy Ultrasound Valeria Hay Comment on above: Female infertility Start: 02-18-2024 End: 02-18-2024 ambulatory AMERICA [facility] Start: 02-16-2024 End: 02-16-2024 Professional / ancillary services management Mac [id number] Kelsy Ultras[facility] Comment on above: Female infertility Start: 02-16-2024 End: 02-16-2024 ambulatory [facility] Start: 02-09-2024 End: 02-09-2024 Patient encounter status [facility] Start: 02-09-2024 End: 02-09-2024 Professional / ancillary services management Mac [id number] Kelsy Ultrasound [facility] Comment on above: Pre-procedure lab ex am; Female infertility Start: 02-09-2024 End: 02-09-2024 ambulatory AMERICA Del Real DW[facility] Start: 02-02-2024 End: 02-02-2024 ambulatory [facility] Start: 01-28-2024 End: 01-28-2024 Subsequent hospital visit by physician [facility] Comment on above: Endometrial polyp Start: 01-28-2024 End: 01-28-2024 ambulatory LEIGH ANN TUTTLE [facility] Start: 01-25-2024 End: 01-25-2024 ambulatory [facility] Start: 01-25-2024 End: 01-25-2024 Encounter for preprocedural laboratory examination [facility] [facility] Start: 01-14-2024 End: 01-14-2024 Bamboo flowsheet Brandy [...] encounter procedure Juan Chavarria MD Work Phone: [facility] Comment on above: Fertility testing [Z 31.41] (Primary Dx); 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 [Z31.81, N97.8] Start: 12-28-2023 End: 12-28-2023 ambulatory JUAN CHAVARRIA [facility] Start: 12-25-2023 End: 12-25-2023 ambulatory AFUA GALEGILBERTMelly [facility] Start: 2023 End: 2023 ambulatory TRISH THORPE [facility] Start: 2023 End: 2023 Patient encounter procedure Trish Thorpe CHIEF LIBRARIAN EXTENSION DEPARTMENT-DIVINITY TEACHER Work Phone: [facility] Comment on above: Encounter for screen ing for other viral diseases (Primary Dx); Encounter for Rh blood typing; Screening for STDs (sexually transmitted diseases); Genetic screening; Fertility testing; Female infertility associated with male factors Start: 2023 End: 2023 Patient encounter status Trish Thorpe CHIEF LIBRARIAN EXTENSION DEPARTMENT-DIVINITY TEACHER Work Phone: [facility] Work Phone: Start: 2023 End: 2023 ambulatory TRISH Polo [facility] Start: 2023 End: 2023 Encounter for blood typing TRISH Polo [facility] Start: 10-21-2023 ambulatory Princess R[facility] ity:[facility] Start: 10-02-2023 End: 10-02-2023 ambulatory Princess Rapp Facility:[facility] Start: 10-02-2023 End: 10-02-2023 Patient encounter procedure Princess Rapp [facility] Start: 08-27-2023 End: 08-27-2023 ambulatory Princess Rapp [facility] Start: 08-27-2023 End: 08-27-2023 Patient encounter procedure Princess Rapp [facility] Start: 03-25-2023 End: 03-25-2023 Patient encounter procedure Princess Rapp [facility] Start: 02-19-2023 End: 02-19-2023 Patient encounter procedure Princess Rapp [facility] Start: 07-26-2022 End: 07-27-[address] LAYO COURTNEY . Facility:[facility] Start: 07-23-2022 End: 07-23-[address] LAYO COURTNEY . Facility:[facility] Start: 07-24-2021 End: 07-24-2021 Patient encounter procedure Leigh Ann Covington [facility] Procedures Date Procedure Procedure Detail Performing Clinician Start: 02-01-2025 US OB BPP W NON-STRESS Layo Sherwin DO Work Phone: Start: 02-01-2025 US OB GROWTH Layo Fazi o DO Work Phone: Start: 01-31-2025 Urnls dip stick/tabl et rgnt non-auto w/o micrscp Maria M Guerrero NP Work Phone: Start: 01-25-2025 US OB BPP W NON-STRESS [...] ic image dcmtn limited/f/u Donya Pickard Josemanuel CHIEF LIBRARIAN EXTENSION DEPARTMENT-DIVINITY TEACHER Work Phone: Start: 03-22-2024 Follicle puncture oo cyte retrieval any method Donya Pickard Josemanuel CHIEF LIBRARIAN EXTENSION DEPARTMENT-DIVINITY TEACHER Work Phone: Start: 03-20-2024 Us pelvic nonobstetr ic image dcmtn limited/f/u Donya Pickard Josemanuel CHIEF LIBRARIAN [employer]TENSION DEPARTMENT-DIVINITY TEACHER Work Phone: Start: 03-20-2024 Assay of estradiol America Quintanilla CHIEF [employer]RARIAN EXTENSION DEPARTMENT-DIVINITY TEACHER Work Phone: Start: 03-19-2024 Us pelvic nonobstetr ic image dcmtn limited/f/u Donya Pickard Josemanuel CHIEF [employer]RARIAN EXTENSION DEPARTMENT-DIVINITY TEACHER Work Phone: Start: 03-17-2024 Us pelvic nonobstetr ic image dcmtn limited/f/u Donya Pickard Josemanuel CHIEF [employer]RARIAN EXTENSION DEPARTMENT-DIVINITY TEACHER Work Phone: Start: 03-17-2024 Assay of estradiol Donya Pickard Josemanuel CHIEF LIBRARIAN EXTENSION DEPARTMENT-DIVINITY TEACHER Work Phone: Start: 03-15-2024 Us pelvic nonobstetr ic image dcmtn limited/f/u Donya Pickard Josemanuel CHIEF LIBRARIAN EXTENSION DEPARTMENT-DIVINITY TEACHER Work Phone: Start: 03-15-2024 Assay of estradiol Donya Pickard Josemanuel CHIEF LIBRARIAN EXTENSION DEPARTMENT-DIVINITY TEACHER Work Phone: Start: 03-09-2024 Us pelvic nonobstetr ic image dcmtn limited/f/u America R Dwight CHIEF [employer]RARIAN EXTENSION DEPARTMENT-DIVINITY TEACHER Work Phone: Start: 03-09-2024 Blood count hematocrit Donya Abernathy CHIEF [employer]IAN [employer]TENSION DEPARTMENT-DIVINITY TEACHER Work Phone: Start: 02-23-2024 Follicle puncture oo cyte retrieval any method Beth Warren MD Work Phone: Start: 02-21-2024 Us pelvic nonobstetr ic image dcmtn limited/f/u America R Dwight CHIEF [employer]RARIAN [employer]TENSION DEPARTMENT-DIVINITY TEACHER Work Phone: Start: 02-21-2024 Gonadotropin luteini zing hormone Beti Warren MD Work Phone: Start: 02-18-2024 Us pelvic nonobstetr ic image dcmtn limited/f/u America R Dwight CHIEF LIBRARIAN [employer]TENSION DEPARTMENT-DIVINITY TEACHER Work Phone: Start: 02-18-2024 Assay of estradiol America R Dwight CHIEF [employer]RARIAN EXTENSION DEPARTMENT-DIVINITY TEACHER Work Phone: Start: 02-16-2024 Assay of estradiol America R Dwight CHIEF [employer]RARIAN EXTENSION DEPARTMENT-DIVINITY TEACHER Work Phone: Start: 02-09-2024 Blood count hematocrit America R Dwight CHIEF LIBRARIAN EXTENSION DEPARTMENT-DIVINITY TEACHER Work Phone: Start: 02-09-2024 Us pelvic nonobstetr ic image dcmtn limited/f/u America R Dwight CHIEF LIBRARIAN EXTENSION DEPARTMENT-DIVINITY TEACHER Work Phone: Start: 01-28-2024 Hysteroscopy bx endometrium&/polypc [...] knee anterior cruciate ligament allograft reconstruction with [id number], debridment medial meniscus tear, patellofemoral chondroplasty-Grade I-II Leigh Ann Covington Tonsillectomy Leigh Ann Covington tubes in the ears Leigh Ann bartholomew Plan of Treatment Date Care Activity Detail Author Start: 2072 RSV High Risk: (Elderly (60+) or Population) (1 - 1-dose 75+ series) RSV High Risk: (Elderly (60+) or Population) (1 - 1-dose 75+ series) [facility] Start: 12-12-2047 Zoster Vaccines (1 of 2) Zoster Vaccines (1 of 2) [facility] Start: 01-13-2027 Screening for malignant neoplasm of cervix [facility] Start: 02-07-2025 End: 02-07-2025 Patient encounter procedure 02/07/2025 1:40 PM EDT Routine SHIRA Hernandez [facility] [address] [place] [address] Maria M Guerrero, CLINICAL LAB SCIENTIST [address] [address] SHIRA Hernandez [facility] Start: 01-31-2025 End: 01-31-2026 CULTURE, GROUP B STREP WITH SUSCEPTIBLITY CULTURE, GROUP B STREP WITH SUSCEPTIBLITY Lab Routine Third trimester ([facility]) Expected: 01/31/2025, Expires: 01/31/2026 [facility] Work Phone: Comment on above: Expected: 01/31/2025, Expires: Start: 01-31-2025 End: 06-02-2025 US for US OB follow up transabdominal approach Imaging Routine Encounter for in vitro fertilization Expected: 01/31/2025, Expires: 06/02/2025 [facility] Comment on above: Expected: 01/31/2025, Expires: Start: 01-31-2025 End: 01-31-2025 Patient encounter procedure 01/31/2025 1:50 PM EDT Routine NOMKenisha Hernandez OBG[facility] [address] [place] [phone] Maria M Guerrero, CLINICAL LAB SCIENTIST [address] [phone] SHIRA Hernandez [facility]BG[facility] Start: 01-30-2025 End: 01-30-2025 Patient encounter procedure 01/30/2025 3:50 PM EDT Routine NOMKenisha [facility] [address] [place] [id number] Maria M Guerrero, CLINICAL LAB SCIENTIST [address] [phone] SHIRA Hernandez [facility]BG[facility] Start: 01-16-2025 End: 01-16-2025 Patient encounter procedure SHIRA Naidu Comment on above: Arrived Start: 01-03-2025 End: 07-03-2025 US biophysical profile w non stress test US biophysical profile w non stress test Imaging Routine resulting from in vitro fertilization in third trimester ([facility]) Expected: 01/03/2025 (Approximate), Expires: 07/03/2025 [facility] Work Phone: Comment on above: Expected: 01/03/2025 (Approximate), Expi res: 07/03/2025 Start: 01-03-2025 End: 01-03-2025 Patient encounter procedure SHIRA Naidu Comment on above: Arrived Start: 01-02-2025 Influenza vaccination Influenza Vaccine (Season Ended) [facility] Start: 12-19-2024 End: 12-19-2024 Professional / ancillary services management 12/19/2024 9:30 AM EDT Ancillary Procedure [facility] [address] [place] [address] [facility] Start: 12-19-2024 End: 12-19-2024 Patient encounter procedure [facility] [place] [facility] Start: 12-06-2024 End: 12-06-2024 Patient encounter procedure [facility] Comment on above: Arrived Start: 11-08-2024 End: 11-08-2024 Patient encounter procedure 11/08/2024 2:40 PM EDT Routine [facility] [address] [facility] [place] [place] [phone] Layo Courtney, DO [address] [place] [address] [facility] Start: 11-08-2024 End: 11-08-2025 CBC panel - Blood by Automated count CBC Lab Routine Diabetes mellitus screening Expected: 11/08/2024 (Approximate), Expires: 11/08/2025 [facility] Work Phone: Comment on above: Expected: 11/08/2024 (Approximate), Expi res: 11/08/2025 Start: 11-08-2024 End: 11-08-2025 Measurement of glucose 1 hour after glucose challenge for glucose tolerance test Glucose tolerance, 1 hour Lab Routine Diabetes mellitus screening Expected: 11/08/2024 (Approximate), Expires: 11/08/2025 [facility] Comment on above: Expected: 11/08/2024 (Approximate), Expi res: 11/08/2025 Start: 10-17-2024 End: 10-17-2024 Patient encounter procedure 10/17/2024 1:00 PM EDT Routine [facility] [address] [place] [phone] Layo Courtney, DO [address] [place] [address] Arrived [facility] Comment on above: Arrived Start: 10-11-2024 End: 10-11-2024 Patient encounter procedure [facility] Comment on above: Arrived Start: 10-11-2024 End: 10-11-2025 Bile acids, total Bile acids, total Lab Routine Pruritus Expected: 10/11/2024 (Approximate), Expires: 10/11/2025 [facility] Comment on above: Expected: 10/11/2024 (Approximate), Expi res: 10/11/2025 Start: 10-11-2024 End: 10-11-2025 CBC W Auto Differential panel - Blood CBC and differential Lab Routine Pruritus Expected: 10/11/2024 (Approximate), Expires: 10/11/2025 [facility] Comment on above: Expected: 10/11/2024 (Approximate), Expi res: 10/11/2025 Start: 10-11-2024 End: 10-11-2025 Hepatic function 2000 panel - Serum or Plasma Hepatic function panel Lab Routine Pruritus Expected: 10/11/2024 (Approximate), Expires: 10/11/2025 [facility] Comment on above: Expected: 10/11/2024 (Approximate), Expi res: 10/11/2025 Start: 10-11-2024 End: 10-11-2025 Hepatitis C virus Ab [Presence] in Serum or Plasma by Immunoassay Hepatitis C antibody Lab Routine Pruritus Expected: 10/11/2024 (Approximate), Expires: 10/11/2025 [facility] Work Phone: Comment on above: Expected: 10/11/2024 (Approximate), Expi res: 10/11/2025 Start: 10-11-2024 End: 10-11-2025 Thyrotropin [Units/volume] in Serum or Plasma TSH Lab Routine Pruritus Expected: 10/11/2024 (Approximate), Expires: 10/11/2025 [facility] Comment on above: Expected: 10/11/2024 (Approximate), Expi res: 10/11/2025 Start: 09-06-2024 End: 09-06-2024 Patient encounter procedure [facility] Comment on above: Arrived Start: 09-06-2024 End: 11-06-2024 Alpha fetoprotein, maternal Alpha fetoprotein, maternal Lab Routine Second trimester Expected: 09/06/2024 (Approximate), Expires: 11/06/2024 [facility] Comment on above: Expected: 09/06/2024 (Approximate), Expi res: 11/06/2024 Start: 09-06-2024 End: 12-07-2024 US for US OB 14+ weeks anatomy scan Imaging Routine Screening, , for anatomic survey Expected: 09/06/2024, Expires: 12/07/2024 [facility] Comment on above: Expected: 09/06/2024, Expires: Start: 08-08-2024 End: 08-08-2024 Patient encounter procedure [facility] Comment on above: Arrived Start: 07-29-2024 End: 07-29-2025 ABO/Rh ABO/Rh Lab Routine Missed menses , unspecified gestational age Expected: 07/29/2024 (Approximate), Expires: 07/29/2025 [facility] Comment on above: Expected: 07/29/2024 (Approximate), Expi res: 07/29/2025 Start: 07-29-2024 End: 07-29-2025 Blood type and Indirect antibody screen panel - Blood Type and screen Lab Routine Missed menses , unspecified gestational age Expected: 07/29/2024 (Approximate), Expires: 07/29/2025 [facility] Work Phone: Comment on above: Expected: 07/29/2024 (Approximate), Expi res: 07/29/2025 Start: 07-29-2024 End: 07-29-2025 Drugs of abuse panel - Urine by Screen method Rapid drug screen, urine Lab Routine , unspecified gestational age Encounter for supervision of normal first in first trimester Expected: 07/29/2024 (Approximate), Expires: 07/29/2025 [facility] Comment on above: Expected: 07/29/2024 (Approximate), Expi res: 07/29/2025 Start: 07-11-2024 End: 07-11-2025 Progesterone [Mass/volume] in Serum or Plasma Progesterone Lab Routine Fertility testing Expected: 07/11/2024 (Approximate), Expires: 07/11/2025 [facility] Service Area Work Phone: Comment on above: Expected: 07/11/2024 (Approximate), Expi res: 07/11/2025 Start: 06-23-2024 Orders Only 06/23/2024 Orders Only Valeria Hay [address] [place] [phone] Ira Lopez RN Encounter for test, result unknown [facility] Comment on above: Encounter for test, result unk nown Start: 03-20-2024 End: 03-20-2025 Lutropin [Units/volume] in Serum or Plasma Luteinizing Hormone Lab STAT Female infertility Expected: 03/20/2024 (Approximate), Expires: 03/20/2025 [facility] Work Phone: Comment on above: Expected: 03/20/2024 (Approximate), Expi res: 03/20/2025 Start: 03-20-2024 End: 03-20-2025 Progesterone [Mass/volume] in Serum or Plasma Progesterone Lab STAT Female infertility Expected: 03/20/2024 (Approximate), Expires: 03/20/2025 [facility] Service Area Work Phone: Comment on above: Expected: 03/20/2024 (Approximate), Expi res: 03/20/2025 Start: 03-20-2024 End: 03-20-2024 Professional / ancillary services management 03/20/2024 8:00 AM EST Ancillary Procedure Valeria Hay [address] [place] [phone] Valeria Hay Start: 03-19-2024 End: 03-19-2024 Professional / ancillary services management 03/19/2024 8:30 AM EST Ancillary Procedure TERRY Hay [address] [place] [address] Valeria Hay Start: 03-17-2024 End: 03-17-2025 Estradiol (E2) [Mass/volume] in Serum or Plasma Estradiol Lab STAT Female infertility Expected: 03/17/2024 (Approximate), Expires: 03/17/2025 [facility] Service Area Work Phone: Comment on above: Expected: 03/17/2024 (Approximate), Expi res: 03/17/2025 Start: 03-17-2024 End: 03-17-2025 Progesterone [Mass/volume] in Serum or Plasma [facility] Work Phone: Comment on above: Expected: 03/17/2024 (Approximate), Expi res: 03/17/2025 Start: 03-17-2024 End: 03-17-2024 Professional / ancillary services management 03/17/2024 6:45 AM EST Ancillary Procedure [facility] [address] [place] [address] [facility] Start: 03-15-2024 End: 03-15-2024 Professional / ancillary services management 03/15/2024 6:45 AM EST Ancillary Procedure TERRY Simmonson [address] [place] [address] [facility] Start: 03-09-2024 End: 03-09-2024 Professional / ancillary services management 03/09/2024 7:15 AM EST Ancillary Procedure [facility] [address] [place] [address] [facility] Start: 02-23-2024 End: 02-23-2024 Patient encounter procedure 02/23/2024 8:30 AM EDT Appointment TERRY Simmonson [address] [place] [phone] Juan Chavarria MD [address] [place] [address] [place] [address] [address] Department of Anesthesiology [place] [address] [facility] Start: 02-21-2024 End: 02-21-2024 Professional / ancillary services management 02/21/2024 8:30 AM EDT Ancillary Procedure [facility] [address] [place] [address] [facility] Start: 02-20-2024 End: 02-17-2025 Estradiol (E2) [Mass/volume] in Serum or Plasma Estradiol Lab STAT Female infertility Expected: 02/20/2024 (Approximate), Expires: 02/17/2025 [facility] Service Area Work Phone: Comment on above: Expected: 02/20/2024 (Approximate), Expi res: 02/17/2025 Start: 02-20-2024 End: 02-17-2025 Progesterone [Mass/volume] in Serum or Plasma Progesterone Lab STAT Female infertility Expected: 02/20/2024 (Approximate), Expires: 02/17/2025 [facility] Work Phone: Comment on above: Expected: 02/20/2024 (Approximate), Expi res: 02/17/2025 Start: 02-20-2024 End: 02-20-2024 Professional / ancillary services management 02/20/2024 8:30 AM EDT Ancillary Procedure [facility] [address] [place] [address] [facility] Start: 02-18-2024 End: 02-18-2024 Professional / ancillary services management 02/18/2024 7:45 AM EDT Ancillary Procedure Shaw[facility] [address] [place] [address] [facility] Start: 02-16-2024 End: 02-16-2024 Professional / ancillary services management 02/16/2024 7:15 AM EDT Ancillary Procedure [facility] [address] [place] [address] [facility] Start: 02-09-2024 End: 02-09-2024 Professional / ancillary services management 02/09/2024 7:15 AM EDT Ancillary Procedure [facility] [address] [place] [address] [facility] Start: 01-14-2024 End: 01-14-2024 Patient encounter procedure 01/14/2024 11:00 AM EDT Office Visit [facility] [address] [place] [address] Brandy Sheehan PA [address] [place] [address] Arrived [facility] Comment on above: Arrived Start: 01-03-2024 COVID-19 Vaccine () COVID-19 Vaccine () [facility] Start: 01-03-2024 COVID-19 Vaccine () COVID-19 Vaccine () [facility] Start: 01-03-2024 Influenza vaccination Influenza Vaccine (#1) [facility] Start: 12-25-2023 End: 12-25-2023 Telemedicine consultation with patient 12/25/2023 9:00 AM EDT Telemedicine Clinical Support [facility] [address] [place] [address] Afua Julian I, [facility] [address] [facility] [place] [address] [facility] Start: 2023 End: 12-10-2024 Chlamydia trachomatis and Neisseria gonorrhoeae DNA [Identifier] in Unspecified specimen by EDELMIRA with probe detection [facility] Work Phone: Comment on above: Expected: 2023 (Approximate), Expi res: 12/10/2024 Start: 2023 End: 12-10-2024 Hepatitis B virus surface Ag [Presence] in Serum or Plasma by Immunoassay [facility] Work Phone: Comment on above: Expected: 2023 (Approximate), Expi res: 12/10/2024 Start: 2023 End: 12-10-2024 Hepatitis C virus Ab [Presence] in Serum [facility] Work Phone: Comment on above: Expected: 2023 (Approximate), Expi res: 12/10/2024 Start: 2023 End: 12-10-2024 HIV 1+2 Ab+HIV1 p24 Ag [Presence] in Serum or Plasma by Immunoassay [facility] Work Phone: Comment on above: Expected: 2023 (Approximate), Expi res: 12/10/2024 Start: 2023 End: 12-10-2024 Rubella virus IgG Ab [Units/volume] in Serum [facility] Service Area Work Phone: Comment on above: Expected: 2023 (Approximate), Expi res: 12/10/2024 Start: 2023 End: 12-10-2024 Treponema pallidum IgG+IgM Ab [Presence] in Serum by Immunoassay [facility] Work Phone: Comment on above: Expected: 2023 (Approximate), Expi res: 12/10/2024 Start: 2023 End: 12-10-2024 Varicella zoster virus IgG Ab [Presence] in Serum by Immunoassay [facility] Work Phone: Comment on above: Expected: 2023 (Approximate), Expi res: 12/10/2024 Start: 01-02-2023 COVID-19 Vaccine ( season) COVID-19 Vaccine ( season) [facility] Start: 12-21-2019 DTaP/Tdap/Td Vaccines (2 - Td or Tdap) DTaP/Tdap/Td Vaccines (2 - Td or Tdap) [facility] Start: 2018 Screening for malignant neoplasm of cervix [facility] Start: 2016 Hepatitis B Vaccines (1 of 3 - 19+ 3-dose series) Hepatitis B Vaccines (1 of 3 - 19+ 3-dose series) [facility] Start: 12-12-2015 Hepatitis C screening Hepatitis C Screening [facility] Start: 2012 HPV Vaccines (1 - 3-dose series) HPV Vaccines (1 - 3-dose series) [facility] Start: 03-14-2010 Varicella vaccination Varicella Vaccines (2 of 2 - 2-dose childhood series) [facility] Start: 01-17-2010 MMR Vaccines (1 of 1 - Standard series) MMR Vaccines (1 of 1 - Standard series) [facility] Start: 1997 HIV screening HIV Screening [facility] Start: 1997 Lipid panel Lipid Panel [facility] Start: 1997 Yearly Adult Physical Yearly Adult Physical [facility] Bacteria identified in Urine by Culture Urine culture Microbiology Routine Missed menses Ordered: 07/29/2024 [facility] Comment on above: Ordered: 07/29/2024 Bacteria identified in Urine by Culture Urine culture Microbiology Routine Leukocytes in urine Other microscopic hematuria Ordered: 12/19/2024 [facility] [employer] Work Phone: Comment on above: Ordered: 12/19/2024 CBC W Auto Different ial panel - Blood CBC and differential Lab Routine Missed menses , unspecified gestational age Ordered: 07/29/2024 [facility] Comment on above: Ordered: 07/29/2024 CHLAMYDIA TRACHOMATI S (GENITO/STI) CHLAMYDIA TRACHOMATIS (GENITO/STI) Lab Routine STD exposure Ordered: 09/06/2024 [facility] Comment on above: Ordered: 09/06/2024 End: 02-23-2024 Choriogonadotropin ( test) [Presence] in Urine POCT , urine manually resulted Point of Care Testing Routine Once (Lab) for 1 Occurrences starting 02/23/2024 until 02/23/2024 [facility] Service Area Work Phone: Comment on above: Once (Lab) for 1 Occurrences starting until 02/23/2024 End: 03-22-2024 Choriogonadotropin ( test) [Presence] in Urine POCT , urine manually resulted Point of Care Testing Routine Once (Lab) for 1 Occurrences starting 03/22/2024 until 03/22/2024 [facility] Service Area Work Phone: Comment on above: Once (Lab) for 1 Occurrences starting until 03/22/2024 End: 06-13-2024 Choriogonadotropin ( test) [Presence] in Urine POCT , urine manually resulted Point of Care Testing Routine Once (Lab) for 1 Occurrences starting 06/13/2024 until 06/13/2024 [facility] Service Area Work Phone: Comment on above: Once (Lab) for 1 Occurrences starting until 06/13/2024 Cytology Cervical or vaginal smear or scraping study Pap Smear Pathology and Cytology Routine Well woman exam with routine gynecological exam Ordered: 01/14/2024 [facility] Work Phone: Comment on above: Ordered: 01/14/2024 Hemoglobin A1c/Hemoglobin.total in Blood Hemoglobin A1c Lab Routine Missed menses , unspecified gestational age Ordered: 07/29/2024 [facility] Comment on above: Ordered: 07/29/2024 Hepatitis B virus abrams rface Ag [Presence] in Serum or Plasma by Immunoassay Hepatitis B surface antigen Lab Routine Missed menses , unspecified gestational age Ordered: 07/29/2024 [facility] Comment on above: Ordered: 07/29/2024 Hepatitis C virus Ab [Presence] in Serum or Plasma by Immunoassay Hepatitis C antibody Lab Routine Missed menses , unspecified gestational age Ordered: 07/29/2024 [facility] Comment on above: Ordered: 07/29/2024 HIV-1/HIV-2 antigen/antibody combination immunoassay HIV-1 and HIV-2 antibodies Lab Routine Missed menses , unspecified gestational age Ordered: 07/29/2024 [facility] Comment on above: Ordered: 07/29/2024 Neisseria gonorrhoea e DNA [Presence] in Unspecified specimen by EDELMIRA with probe detection Neisseria gonorrhea DNA probe, direct Lab Routine STD exposure Ordered: 09/06/2024 [facility] Comment on above: Ordered: 09/06/2024 Reagin Ab [Presence] in Serum by RPR RPR Lab Routine Missed menses , unspecified gestational age Ordered: 07/29/2024 [facility] Comment on above: Ordered: 07/29/2024 KELSY US Pelvis Limite d Follicles - Follicle Studies Performed KELSY US Pelvis Limited Follicles - Follicle Studies Performed Imaging Routine Female infertility 02/16/2024 7:17 AM EDT [facility] Work Phone: KELSY US Pelvis Limite d Follicles - Follicle Studies Performed KELSY US Pelvis Limited Follicles - Follicle Studies Performed Imaging Routine Female infertility 02/20/2024 9:06 AM EDT [facility] Work Phone: Rubella antibody, IgG Rubella an tibody, IgG Lab Routine Missed menses , unspecified gestational age Ordered: 07/29/2024 [facility] Comment on above: Ordered: 07/29/2024 SURESWAB(R) ADVANCED VAGINITIS PLUS, TMA SURESWAB(R) ADVANCED VAGINITIS PLUS, TMA Pathology and Cytology Routine STD exposure Ordered: 09/06/2024 [facility] Work Phone: Comment on above: Ordered: 09/06/2024 End: 01-28-2024 Surgical pathology study [facility] Work Phone: Comment on above: Once (Lab) for 1 Occurrences starting until 01/28/2024, 1 completed Once (Lab) for 1 Occ urrences starting 01/28/2024 until 01/28/2024 Immunizations Immunization Date Immunization Notes Care Provider Fa cility 12-20-2009 meningococcal ACWY vaccine, unspecified formulation Princess Rapp [facility] 12-20-2009 tetanus toxoid, reduced diphtheria toxoid, and acellular pertussis vaccine, adsorbed Princess Rapp [facility] 12-20-2009 varicella virus vaccine Princess Rapp [facility] NEGATED: Highlighted row has not occurred!04-06-2024 influenza virus vaccine, unspecified formulation Mallory Jauregui [facility] NEGATED: Highlighted row has not occurred!06-26-2021 influenza virus vaccine, unspecified formulation Leigh Ann Covington [facility] NEGATED: Highlighted row has not occurred!06-26-2021 SARS-CoV-2 (COVID-19) Ad26 vaccine, recombinant Leigh Ann [employer] [facility] NEGATED: Highlighted row has not occurred!01-29-2021 influenza virus vaccine, unspecified formulation Leigh Ann [employer] [facility] NEGATED: Highlighted row has not occurred!01-29-2021 SARS-CoV-2 (COVID-19) Ad26 vaccine, recombinant Leigh Ann [employer] [facility] NEGATED: Highlighted row has not occurred!05-03-2019 influenza virus vaccine, live, attenuated, for intranasal use [employer] [facility] NEGATED: Highlighted row has not occurred!09-30-2018 influenza virus vaccine, unspecified formulation Leigh Ann [employer] [facility] Payers Date Payer Category Payer Managed Care (Private) [id number] [id number] 2022 Private Health Insurance [employer] [id number] 2022 Unknown [id number]. 1.13.647.2. [id number] 2022 Unknown [id number] 1997 Unknown [id number] 2.16.840.1.206155.3.579.2. 593 1997 Unknown [id number] 2.16.840.1.644804.3.579.2. 593 1997 Unknown [id number] 2.16.840.1.237731.3.579.2. 727 1997 Unknown [id number] 2.16840.1.378014.3.579.2. 727 1997 Unknown [id number] 2.16840.1.922422.3.579.2. 727 1997 Unknown [id number] 2.16840.1.515114.3.579.2. 727 1997 Unknown [id number] 2.16840.1.247616.3.579.2. 1243 1997 Unknown [id number] 2.16840.1.034879.3.579.2. 124 1997 Unknown [id number] 2.16840.1.829513.3.579.2. 1243 1997 Unknown [id number] 2.16840.1.442515.3.579.2. 1245 1997 Unknown [id number] 2.16840.1.098678.3.579.2. 124 1997 Unknown [id number] 2.16840.1.304893.3.579.2. 124 1997 Unknown [id number] 2.16840.1.697212.3.579.2. 124 1997 Unknown [id number] 2.16840.1.895231.3.579.2. 1245 1997 Unknown [id number] 2.16840.1.331227.3.579.2. 1244 1997 Unknown [id number] 2.16.840.1.468652.3.579.2. 1244 1997 Unknown [id number] 2.16.840.1.594209.3.579.2. 1244 1997 Unknown [id number] 2.16.840.1.867689.3.579.2. 1244 1997 Unknown [id number] 2.16.840.1.821278.3.579.2. 1244 1997 Unknown [id number] 2.16840.1.644440.3.579.2. 1244 1997 Unknown [id number] 2.16.840.1.145924.3.579.2. 1244 1997 Unknown [id number] 2.16840.1.402548.3.579.2. 1244 1997 Unknown [id number] 2.16840.1.804232.3.579.2. 1244 1997 Unknown [id number] 2.16840.1.768369.3.579.2. 1244 1997 Unknown [id number] 2.16840.1.728816.3.579.2. 1244 1997 Unknown [id number] 2.16840.1.662775.3.579.2. 1244 1997 Unknown [id number] 2.16.840.1.431514.3.579.2. 1244 1997 Unknown [id number] 2.16840.1.107180.3.579.2. 1244 1997 Unknown [id number] 2.16.840.1.227004.3.579.2. 1244 1997 Unknown [id number] 2.16840.1.771063.3.579.2. 1244 1997 Unknown [id number] 2.16.840.1.602629.3.579.2. 1244 1997 Unknown [id number] 2.16.840.1.546820.3.579.2. 1244 1997 Unknown [id number] 2.16.840.1.058664.3.579.2. 1244 1997 Unknown [id number] 2.16840.1.767392.3.579.2. 1244 1997 Unknown [id number] 2.16840.1.077688.3.579.2. 1244 1997 Unknown [id number] 2.840.1.299426.3.579.2. 1244 1997 Unknown [id number] 2.840.1.960278.3.579.2. 1244 1997 Unknown [id number] 2.840.1.803802.3.579.2. 1244 1997 Unknown [id number] 2.840.1.302337.3.579.2. 1244 1997 Unknown [id number] 2.840.1.936345.3.579.2. 1244 1997 Unknown [id number] 2.840.1.869856.3.579.2. 1244 1997 Unknown [id number] 2.840.1.924006.3.579.2. 1244 1997 Unknown [id number] 2.840.1.400052.3.579.2. 1244 1997 Unknown [id number] 2.16840.1.615642.3.579.2. 1244 1997 Unknown [id number] 2.16840.1.777570.3.579.2. 1244 1997 Unknown [id number] 2.16840.1.030639.3.579.2. 1245 1997 Unknown [id number] 2.16.840.1.812910.3.579.2. 1259 1997 Unknown [id number] 2.16.840.1.245426.3.579.2. 9 1997 Unknown [id number] 2.16.840.1.837030.3.579.2. 9 1997 Unknown [id number] 2.16.840.1.004801.3.579.2. 9 1997 Unknown [id number] 2.16.840.1.220069.3.579.2. 1258 1997 Unknown [id number] 2.16.840.1.761209.3.579.2. 9 1997 Unknown [id number] 2.16.840.1.030145.3.579.2. 1258 1997 Unknown [id number] 2.16.840.1.537500.3.579.2. 1259 1997 Unknown [id number] 2.16.840.1.435311.3.579.2. 9 1997 Unknown [id number] 2.16.840.1.822544.3.579.2. 9 1997 Unknown [id number] 2.16.840.1.197703.3.579.2. 1258 1997 Unknown [id number] 2.16.840.1.768851.3.579.2. 1259 1959 Unknown [id number] 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 Date Type Detail Facility Start: 07-24-2021 End: 03-05-2023 Tobacco smoking status Never smoked tobacco (finding) [facility] Tobacco smoking status Never [facility] Start: 01-28-2024 End: 07-29-2024 Sex Assigned At Female [facility] Start: 2023 Tobacco use and exposure Smokeless tobacco non-user [facility] Work Phone: Start: 01-28-2024 End: 06-23-2024 Alcoholic beverage intake Ex-drinker (finding) [facility] Work Phone: Start: 01-28-2024 End: 07-29-2024 History of Social function [facility] Work Phone: Start: 2023 Alcohol Comment Occassionally [facility] Work Phone: Start: 1997 Sex assigned at Not on file U [facility] Work Phone: Start: 12-01-2023 End: 10-07-2024 Exposure to SARS-CoV-2 (event) Not sure [facility] Start: 02-23-2024 End: 01-31-2025 Alcoholic beverage intake Current drinker of alcohol (finding) [facility] Work Phone: Start: 03-05-2023 Alcohol Comment Beer 1-2 times per m [facility] Start: 12-18-2023 End: 12-28-2023 Exposure to SARS-CoV-2 (event) Unable to assess [facility] Start: 06-08-2024 [facility] Medical Equipment Procedure Code Equipment Code Equipment Origin al Text Equipment Identifier Dates [id number] Start: 03-01-2024 End: 03-09-2024 Functional Status Date Assessment Result Facility 04-06-2024 Functional Status N/A [facility] 10-02-2023 Functional Status N/A [facility] 08-27-2023 Functional Status N/A [facility] 02-19-2023 Functional Status N/A [facility] Clinical Notes 07-24-2021 to 01-31-2025 Marilia Elder MA - 01/31/2025 1:50 PM Nahomi Guerrero NP - 01/16/2025 2:50 PM Megan Greer, VAULT TELLER - 01/03/2025 10:00 AM Max Jsoieseanshe, VAULT TELLER - 12/19/2024 10:00 AM Lois Instructions Note Date & Type Note Facility 01-31-2025 History of Present illness Narrative Reason for [...] nursing note reviewed. Exam conducted with a subway car repairer present. Vitals: Estimated body mass index is 40.57 kg/m as calculated from the following: Height as of 09/17/22: 5' 3 . Weight as of this encounter: 229 lb. BP: 122/76 No LMP recorded. Patient is . ASSESSMENT & PLAN ICD-10-CM 1. Third trimester ([facility]) Z34.93 CULTURE, GROUP B STREP WITH SUSCEPTIBLITY CULTURE, GROUP B STREP WITH SUSCEPTIBLITY CANCELED: CULTURE, GROUP B STREP WITH SUSCEPTIBLITY 2. 35 weeks gestation of ([facility]) Z3A.35 POCT urinalysis dipstick manually resulted 3. [...] M Guerrero NP documented in this encounter [facility] 01-16-2025 History of Present illness Narrative Reason [...] PLAN ICD-10-CM 1. 33 weeks gestation of ([facility]) Z3A.33 POCT urinalysis dipstick manually resulted 2. Third trimester ([facility]) Z34.93 POCT urinalysis dipstick manually resulted 3. Group B streptococcal infection A49.1 4. resulting from in vitro fertilization in first trimester ([facility]) O09.811 Return OB: Patient [...] Layo Courtney DO documented in this encounter [facility] 01-03-2025 History of Present illness Narrative [...] nursing note reviewed. Exam conducted with a subway car repairer present. Vitals: Estimated body mass index is 39.47 kg/m as calculated from the following: Height as of 09/17/22: 5' 3 . Weight as of this encounter: 222 lb 12.8 oz. BP: 118/74 No LMP recorded. Patient is . ASSESSMENT & PLAN ICD-10-CM 1. Third trimester ([facility]) Z34.93 POCT urinalysis dipstick manually resulted 2. 31 weeks gestation of ([facility]) Z3A.31 POCT urinalysis dipstick [...] Layo Courtney DO documented in this encounter [facility] 12-19-2024 History of Present illness Narrative [...] nursing note reviewed. Exam conducted with a subway car repairer present. Vitals: Estimated body mass index is 38.76 kg/m as calculated from the following: Height as of 09/17/22: 5' 3 . Weight as of this encounter: 218 lb 12.8 oz. BP: 116/70 No LMP recorded. Patient is . ASSESSMENT & PLAN ICD-10-CM 1. 29 weeks gestation of ([facility]) Z3A.29 POCT urinalysis dipstick manually resulted 2. Third trimester ([facility]) Z34.93 POCT urinalysis dipstick manually resulted 3. [...] Layo Courtney DO documented in this encounter [facility] 12-06-2024 History of Present illness Narrative [...] PLAN ICD-10-CM 1. 27 weeks gestation of ([facility]) Z3A.27 POCT urinalysis dipstick manually resulted 2. Second trimester ([facility]) Z34.92 POCT urinalysis dipstick [...] Layo Courtney DO documented in this encounter [facility] 11-08-2024 History of Present illness Narrative [...] ASSESSMENT & PLAN ICD-10-CM 1. Second trimester ([facility]) Z34.92 POCT urinalysis dipstick manually resulted 2. 26 weeks gestation of ([facility]) Z3A.26 POCT urinalysis dipstick [...] Layo Courtney DO documented in this encounter [facility] 10-17-2024 History of Present illness Narrative [...] nursing note reviewed. Exam conducted with a subway car repairer present. Vitals: Estimated body mass index is 35.52 kg/m as calculated from the following: Height as of 09/17/: 5' 3 . Weight as of this encounter: 200 lb 8 oz. BP: 126/82 No LMP recorded. Patient is . ASSESSMENT & PLAN ICD-10-CM 1. Second trimester ([facility]) Z34.92 POCT urinalysis dipstick manually resulted 2. 20 weeks gestation of ([facility]) Z3A.20 Return OB: Patient [...] Layo Courtney DO documented in this encounter [facility] 10-11-2024 History of Present illness Narrative [...] Layo Courtney DO documented in this encounter [facility] 09-06-2024 History of Present illness Narrative [...] of: ORION Spence documented in this encounter [facility] 08-08-2024 History of Present illness Narrative [...] nursing note reviewed. Exam conducted with a subway car repairer present. Vitals: Estimated body mass index is [...] Layo Courtney DO documented in this encounter [facility] 07-29-2024 History of Present illness Narrative [...] screen, urine; Future Nurse Note: Patient declined [employer] to one Pt is an IVF [...] or undercooked meat, and stay away from [facility]. Patient has also been advised to [...] Marilia Elder MA documented in this encounter [facility] 07-11-2024 History of Present illness Narrative Visit Type: In Person reviewed, Authorization status not noted. OB Scan [...] 07/11/2024 3:54 PM documented in this encounter [facility] Work Phone: 06-13-2024 History of Present illness Narrative Associated Order(s): Embryo Transfer Pre-Procedure Diagnose(s): Encounter for assisted reproductive fertility cycle Post-Procedure Diagnose(s): Encounter for assisted reproductive fertility cycle Patient ID: Sydney Rmoero is a 28 y.o. female. Embryo Transfer [...] Preop diagnosis: Infertility Post op diagnosis: [employer] Director: none Depth: 7 cm Curve: anterior Distance [...] 06/13/24 11:24 AM documented in this encounter [facility] Work Phone: 06-13-2024 Hospital Discharge instructions Tisha Sparks RN - 06/13/2024 10:43 AM EST Images from the original note were not included. [facility] [address]. [place] [id number] Home Going Instructions after Embryo Transfer: After [...] in : Advil, Motrin, Ibuprofen, Aleve, Excedrin, [place], Sudafed, and Pepto-Bismol. Avoid aspirin unless you [...] Sparks 10:43 AM documented in this encounter [facility] Work Phone: 06-06-2024 History of Present illness [...] BID until further instructed. Message sent to desktop support manager to schedule at 8:45 slot at [facility] for US and labs. ZOE FRANCIS on 06/06/24 at 1:12 PM. documented in this encounter [facility] Work Phone: 04-06-2024 Hospital Discharge instructions Patient [...] provider. Document Revised: 09/09/2021 Document Reviewed: 09/09/2021 [employer] Patient Education 2023 [employer]. Follow Up Care 03/25/2024 14:07:23 With:Mallory Judd Address: When:Within 6 Month(s) [facility] 03-22-2024 History of Present illness Narrative Associated Order(s): Egg Retrieval Pre-Procedure Diagnose(s): Encounter for assisted reproductive fertility cycle Post-Procedure Diagnose(s): Encounter for assisted reproductive fertility cycle Patient ID: Sydney Romero is a 28 y.o. female. Egg Retrieval Date/Time: 03/22/2024 9:39 AM Performed by: Juan Chavarria MD Authorized by: Donya Abernathy APRN-DIVINITY TEACHER Consent: Consent obtained: Verbal and written Consent [...] diagnosis: Female infertility Post op diagnosis: [employer] Director: Dr. Warren IV Fluids: 600 cc EBL: 5 cc UOP: Not recorded Specimen: Oocytes Complications: None Number of Oocytes right ovary: 16 Ovarian access (right): Easy Number of Oocytes left ovary: 9 Ovarian access (left): Easy Endometrial thickness: n/a Needle type: Single Additional notes: documented in this encounter [facility] Work Phone: 03-22-2024 Nurse Note Patient discharged to home in stable condition via wheelchair to RIDE HOME: Partner's car. Accompanied by RN. VSS at time of discharge. Discharge instructions given and concerns addressed. Gisell Michel RN 03/22/24 11:08 AM [facility] Work Phone: 03-22-2024 Nurse Note Patient discharged to home in stable condition via wheelchair to RIDE HOME: Partner's car. Accompanied by RN. VSS at time of discharge. Discharge instructions given and concerns addressed. Gisell Michel RN 03/22/24 11:08 AM documented in this encounter [facility] Work Phone: 03-22-2024 Hospital Discharge instructions Gisell Michel RN - 03/22/2024 8:45 AM EST Images from the original note were not included. [facility] [address] [place] [address] Home Going Instructions after Egg Retrieval: Activity: [...] 2 weeks following your oocyte retrieval. Call [phone] to speak with a Physician or Nurse if you have any concerns. Giesll Michel 8:45 AM [facility] [address] [place], [place] IVF LAB EMBRYO UPDATE PROTOCOL The [...] biopsied and frozen. Gisell Michel 8:44 AM [facility] [address] [place] [address] Frozen Embryo Transfer Instructions After your egg retrieval, follow up with your IVF nurse within 3-4 days Thursday-Thursday regarding the plan for your frozen embryo transfer (FET) cycle. Your IVF nurse will order and review with you the medications you will be using for the cycle. You will be sent an email from [employer] to fill out your Frozen Embryo Treatment [...] RN 8:44 AM documented in this encounter [facility] Work Phone: 03-20-2024 History of Present illness [...] Arrive 60 minutes prior to procedure at [place] [address]. Patient verbalizes understanding of plan and location of procedure. [facility] Krissy Yanes 03/20/2024 11:01 AM documented in this encounter [facility] Work Phone: 03-19-2024 History of Present illness [...] 03/19/24 11:02 AM documented in this encounter [facility] Work Phone: 03-17-2024 History of Present illness [...] 03/17/24 1:04 PM documented in this encounter [facility] Work Phone: 03-15-2024 History of Present illness [...] time; no further questions. Transferred to the desktop support manager to schedule appt for 03/17. Allyssa Robles 03/15/24 1:27 PM documented in this encounter [facility] Work Phone: 03-09-2024 History of Present illness [...] Yes; PGT-M Test Ready: No ; Company: [employer] PGT order scanned into [employer], confirmed by: LORI on Plan to freeze: [...] on 03/09 by delano On site at [facility] Additional details: Allyssashaila NailsRobles 03/09/2024 7:50 AM TC to pt to confirm today's plan; LM; will send MC message. Allyssa Nailsaney 03/09/24 2:02 PM Pt called back to confirm plan; Pt has all meds and all questions answered. She plans to purchase FET meds before the end of the year (they were ordered back in February) and will call [facility] to have them filled as she has met deductible and REECE needs a PA. Allyssa Margaret 03/09/24 2:33 PM documented in this encounter [facility] Work Phone: 02-23-2024 Nurse Note Patient discharged to home in stable condition via wheelchair accompanied by this RN to RIDE HOME: Partner's car. Discharge instructions given and concerns addressed. Patient verbalizes understanding of all information provided and is agreeable. [facility] 02-23-2024 Nurse Note Patient discharged to home in stable condition via wheelchair accompanied by this RN to RIDE HOME: Partner's car. Discharge instructions given and concerns addressed. Patient verbalizes understanding of all information provided and is agreeable. Patient up to bathroom independently, no complaints of pain or dizziness, able to void without issue, reports scant amount of bleeding. documented in this encounter [facility] Work Phone: 02-23-2024 Nurse Note Patient up to bathroom independently, no complaints of pain or dizziness, able to void without issue, reports scant amount of bleeding. [facility] Work Phone: 02-23-2024 History of Present illness [...] diagnosis: Female infertility Post op diagnosis: [employer] Director: none IV Fluids: 500 cc EBL: 5 cc UOP: Not recorded Specimen: Oocytes Complications: None Number of Oocytes right ovary: 17 Ovarian acc ss (right): Easy Number of Oocytes left ovary: 13 Ovarian access (left): Easy Endometrial thickness: n/a Needle type: Single Additional notes: documented in this encounter [facility] Work Phone: 02-23-2024 Hospital Discharge instructions Donya Rosas RN - 02/23/2024 7:23 AM EDT Images from the original note were not included. [facility] [address] [place] [id number] Home Going Instructions after Egg Retrieval: Activity: [...] 2 weeks following your oocyte retrieval. Call [phone] to speak with a Physician or Nurse if you have any concerns. DONYA ROSAS 7:23 AM [facility] [address] [place], [place] IVF LAB EMBRYO UPDATE PROTOCOL The [...] biopsied and frozen. DONYA ROSAS 7:23 AM [facility] [address] [place], [place] IVF LAB EMBRYO UPDATE PROTOCOL The [...] biopsied and frozen. DONYA ROSAS 7:23 AM [facility] [address] [place] [address] Frozen Embryo Transfer Instructions After your egg retrieval, follow up with your IVF nurse within 3-4 days Thursday-Thursday regarding the plan for your frozen embryo transfer (FET) cycle. Your IVF nurse will order and review with you the medications you will be using for the cycle. You will be sent an email from [employer] to fill out your Frozen Embryo Treatment [...] RN 7:32 AM documented in this encounter [facility] Work Phone: 02-21-2024 History of Present illness [...] 02/21/2024 9:09 AM documented in this encounter [facility] Work Phone: 02-20-2024 History of Present illness [...] Beth Judge RN documented in this encounter [facility] Work Phone: 02-18-2024 History of Present illness [...] Beth Judge RN documented in this encounter [facility] Work Phone: 02-16-2024 History of Present illness [...] Will look into getting insulin syringes from [facility]. Team will contact patient later today with results and plan. Krissy Yanes 02/16/2024 7:27 AM LM with patient with plan to start Cetrotide today, drop FSH to 225 units and continue Menopur 75 units. Patient is already scheduled for 02/17 for repeat follicle scan and e2. Krissy Yanes 02/16/24 1:34 PM documented in this encounter [facility] Work Phone: 02-09-2024 History of Present illness [...] Sent: Yes; PGT-M Test Ready: No /A; [employer]: [employer] [employer] order scanned into [employer], confirmed by: LORI on 02/09/2024 Plan to freeze: embryos [employer] forms/out waiver complete: Yes Does patient have medications onhand? Yes Pharmacy: [facility] pass signed off: Yes LORETTA on 02/05/2024 Date of Female STDs: 2023 Date of Male STDs: 2023 Medically complex on boarding pass: no If indicated, is PAT consult complete? N/A SPERM: partner [employer] with [employer] Back[employer] Number of vials confirmed: 1 on 02/09/24 by LOERTTA Additional details: Allyssa Robles 02/09/2024 7:34 AM Beti Warren 02/09/24 12:44 PM TC to inge - Zane answered; confirmed plan for meds to start on 02/12 as per calendar and return on 02/15 as scheduled; no further questions. Allyssa Robles 02/09/24 1:16 PM documented in this encounter [facility] Work Phone: 01-28-2024 Nurse Note Patient discharged to home in stable condition via wheelchair to RIDE HOME: Partner's car. Discharge instructions given and concerns addressed. [facility] Work Phone: 01-28-2024 Nurse Note Patient discharged to home in stable condition via wheelchair to RIDE HOME: Partner's car. Discharge instructions given and concerns addressed. documented in this encounter [facility] Work Phone: 01-28-2024 History of Present illness [...] no immediate complications documented in this encounter [facility] Work Phone: 01-28-2024 Hospital Discharge instructions Ira Lopez RN - 01/28/2024 8:20 AM EDT Images from the original note were not included. [facility] [address] [place] [address] Home Going Instructions after Polypectomy: Activity: We [...] Lopez 8:20 AM documented in this encounter [facility] Work Phone: 01-14-2024 History of Present illness [...] nursing note reviewed. Exam conducted with a subway car repairer present. Vitals: Estimated body mass index is [...] of: ORION Spence documented in this encounter [facility] 12-28-2023 History of Present illness Narrative [...] / TREATMENT Saw KELSY physician in [facility] Dr. Vergara Was told needed IVF, oligospermia Hysterosalpingogram: 2023, bilateral tubal patency Saline Infused Sonography: 07/2023, normal uterine cavity small uterine polyp noted (not removed as of yet) TRAUMA SURGEON Pelvic Ultrasound: 07/2023 AMH 2.01 Relationship Status: x 2 years OB Hx G0 OB History 0 Para 0 Term 0 0 AB 0 Living 0 SAB 0 IAB 0 Ectopic 0 Multiple 0 Live Births 0 TRAUMA SURGEON HISTORY History of STD or PID: No [...] Update: PLAN PENDING follow up with Dr. Haytt, ADPKD follow up testing, recommendations from genetics [...] 12/28/2023 10:39 AM documented in this encounter [facility] Work Phone: 2023 History of Present illness Narrative Visit Type: In Person NEW FERTILITY PATIENT VISIT Referred by: insurance referral Accompanied today by: spouse Sydney Romero is a 27 y.o. female who presents with Infertility TTC x 2 years PRIOR EVALUATION / TREATMENT Saw KELSY physician in [facility] Dr. Vergara Was told needed IVF, oligospermia Hysterosalpingogram: 2023, bilateral tubal patency Saline Infused Sonography: 07/2023, normal uterine cavity small uterine polyp noted (not removed as of yet) TRAUMA SURGEON Pelvic Ultrasound: 07/2023 AMH 2.01 Prior Labs [...] Ectopic 0 Multiple 0 Live Births 0 TRAUMA SURGEON HISTORY History of STD or PID: No [...] mg daily Recommend Consult with Dr. Meyer [phone] Recommend repeat SA with 48-72 hours abstinence Recommend Female Vitamins: vitamin Vitamin D (total of 2,000 international units daily) CoQ10 600 mg daily Routine Testing [facility] STDs Within 1 year Genetic carrier Waiver/Completed T&S Within 1 year AMH Within 1 year TSH Within 1 year Rubella/Varicella Within 5 years BMI Testing [facility] CBC Within 1 year CMP [...] 2023 8:52 AM documented in this encounter [facility] Work Phone: 2023 Instructions SMITH Mina - 2023 8:45 AM EDT Recommend Male Vitamins Discussed as follows: Co-Q10 200 mg daily L-Carnitine 200-500 mg daily Vitamin C 500 mg daily Recommend Consult with Dr. Meyer [phone] Recommend repeat SA with 48-72 hours abstinence Recommend Female Vitamins: vitamin Vitamin D (total of 2,000 international units daily) CoQ10 600 mg daily documented in this encounter [facility] Work Phone: 10-02-2023 Hospital Discharge instructions Patient [...] food choices, such as grocery stores and [employer] markets. What are the signs or symptoms? [...] and how much exercise you get. Take dggf-oto-wbxhfiv and prescription medicines only as told by [...] provider. Document Revised: 11/26/2021 Document Reviewed: 11/26/2021 [employer] Patient Education 2022 [employer] 10/02/2023 12:54:15 BMI for Adults BMI [...] numbers. This can be done either in Spanish (U.S.) or metric measurements. Note that charts and online BMI calculators are available to help you find your BMI quickly and easily without having to do these calculations yourself. To calculate your BMI in Spanish (U.S.) measurements: 1.Measure your weight in pounds [...] Centers for Disease Control and Prevention: www.cdc.gov [place] Heart Association: www.heart.org National Heart, Lung, and Blood [place]: www.nhlbi.nih.gov Summary Body mass index (BMI) is a number that is calculated from a person's weight and height. BMI may help estimate how much of a person's weight is composed of fat. BMI can help identify those who may be at higher risk for certain medical problems. BMI can be measured using Spanish measurements or metric measurements. BMI charts are used to identify whether you are underweight, normal weight, overweight, or obese. This information is not intended to replace advice given to you by your health care provider. Make sure you discuss any questions you have with your health care provider. Document Revised: 01/11/2020 Document Reviewed: 11/18/2019 [employer] Patient Education 2022 [employer]. 10/02/2023 12:54:13 Migraine Headache Migraine Headache A [...] Follow these instructions at home: Medicines Take ytvn-uom-svzatnq and prescription medicines only as told by your health care provider. Ask your health care provider if the medicine prescribed to you: ?Requires you to avoid driving or using heavy machinery. ?Can cause constipation. You may need to take these actions to prevent or treat constipation: ?Drink enough fluid to keep your urine pale yellow. ?Take zets-glh-wtrjtxh or prescription medicines. ?Eat foods that are [...] 06/02/2019 [employer] Patient Education 2022 [employer] Inc. 10/02/2023 12:54:11 Form - Headache Record [...] provider. Document Revised: 09/18/2021 Document Reviewed: 09/18/2021 [employer] Patient Education 2022 [employer] 10/02/2023 12:54:08 Eczema Eczema Eczema refers [...] these instructions at home: Take or apply jcpr-wyh-begynga and prescription medicines only as told by your health care provider. Use creams or ointments to moisturize your skin. Do not use lotions. Learn what triggers or irritates your symptoms so you can avoid these things. Treat symptom flare-ups quickly. Do not scratch your skin. This can make your rash worse. Keep all follow-up visits. This is important. Where to find more information [place] Academy [employer] Dermatology: aad.org National Eczema Association: [...] provider. Document Revised: 01/28/2021 Document Reviewed: 01/28/2021 [employer] Patient Education 2022 [employer]. 10/02/2023 12:54:06 BMI for Adults BMI for [...] numbers. This can be done either in Spanish (U.S.) or metric measurements. Note that charts and online BMI calculators are available to help you find your BMI quickly and easily without having to do these calculations yourself. To calculate your BMI in Spanish (U.S.) measurements: 1.Measure your weight in pounds [...] Centers for Disease Control and Prevention: www.cdc.gov [place] Heart Association: www.heart.org National Heart, Lung, and Blood [place]: www.nhlbi.nih.gov Summary Body mass index (BMI) is a number that is calculated from a person's weight and height. BMI may help estimate how much of a person's weight is composed of fat. BMI can help identify those who may be at higher risk for certain medical problems. BMI can be measured using Spanish measurements or metric measurements. BMI charts are used to identify whether you are underweight, normal weight, overweight, or obese. This information is not intended to replace advice given to you by your health care provider. Make sure you discuss any questions you have with your health care provider. Document Revised: 01/11/2020 Document Reviewed: 11/18/2019 [employer] Patient Education 2022 [employer]. Follow Up Care 09/22/2023 13:18:17 With:Princess Dumont FAM, [facility] Address: [facility] [place] [id number]- Business (1) When:07/08/2023 Comments:for f/u [facility] 08-27-2023 Hospital Discharge instructions [...] 1.Identify the foods that contain carbohydrates: Rice. [place]. Milk. Strawberries. 2.Calculate how many servings you [...] and snacks. Where to find more information [place] Diabetes Association: diabetes.org Centers for Disease Control [...] provider. Document Revised: 11/21/2020 Document Reviewed: 11/21/2020 [employer] Patient Education 2022 [employer]. 08/27/2023 19:11:56 Calorie Counting for Weight Loss [...] provider. Document Revised: 05/31/2020 Document Reviewed: 05/31/2020 [employer] Patient Education 2022 [employer]. 08/27/2023 19:11:54 Exercising to Lose Weight Exercising [...] health care provider or diet and nutrition club ambassador (dietitian). This may include: ?Eating fewer calories. [...] provider. Document Revised: 06/16/2021 Document Reviewed: 06/16/2021 [employer] Patient Education 2022 [employer] 08/27/2023 19:11:53 BMI for Adults BMI [...] numbers. This can be done either in Spanish (U.S.) or metric measurements. Note that charts and online BMI calculators are available to help you find your BMI quickly and easily without having to do these calculations yourself. To calculate your BMI in Spanish (U.S.) measurements: 1.Measure your weight in pounds [...] Centers for Disease Control and Prevention: www.cdc.gov [place] Heart Association: www.heart.org National Heart, Lung, and Blood [place]: www.nhlbi.nih.gov Summary Body mass index (BMI) is a number that is calculated from a person's weight and height. BMI may help estimate how much of a person's weight is composed of fat. BMI can help identify those who may be at higher risk for certain medical problems. BMI can be measured using Spanish measurements or metric measurements. BMI charts are used to identify whether you are underweight, normal weight, overweight, or obese. This information is not intended to replace advice given to you by your health care provider. Make sure you discuss any questions you have with your health care provider. Document Revised: 01/11/2020 Document Reviewed: 11/18/2019 [employer] Patient Education 2022 [employer]. 08/27/2023 19:11:48 Musculoskeletal Pain Musculoskeletal Pain Musculoskeletal [...] mouth or applied to the skin. Take qsrk-nai-zmcgxlj and prescription medicines only as told by [...] provider. Document Revised: 08/23/2020 Document Reviewed: 08/01/2020 [employer] Patient Education 2022 [employer]. 08/27/2023 19:05:09 Cervicogenic Headache Cervicogenic Headache In [...] includes your primary health care provider, a furniture painter, a neurologist, and a physical therapist. Follow these instructions at home: Take vkdy-bzx-dhnbbdd and prescription medicines only as told by [...] includes your primary health care provider, a furniture painter, a neurologist, and a physical therapist. This information is not intended to replace advice given to you by your health care provider. Make sure you discuss any questions you have with your health care provider. Document Revised: 10/24/2021 Document Reviewed: 10/24/2021 [employer] Patient Education 2022 [employer]. 08/27/2023 19:05:07 Form - Headache Record Form [...] provider. Document Revised: 09/18/2021 Document Reviewed: 09/18/2021 [employer] Patient Education 2022 [employer] 08/27/2023 19:05:07 Chronic Migraine Headache Chronic [...] Follow these instructions at home: Medicines Take gqhw-zob-nysldfz and prescription medicines only as told by [...] for Headache and Migraine Patients (CHAMP): headachemigraine.org [place] Migraine Foundation: americanmigrainefoundation.org National Headache Foundation: headaches.org [...] provider. Document Revised: 06/06/2020 Document Reviewed: 06/06/2020 [employer] Patient Education 2022 [employer] 08/27/2023 19:05:03 BMI for Adults BMI [...] numbers. This can be done either in Spanish (U.S.) or metric measurements. Note that charts and online BMI calculators are available to help you find your BMI quickly and easily without having to do these calculations yourself. To calculate your BMI in Spanish (U.S.) measurements: 1.Measure your weight in pounds [...] Centers for Disease Control and Prevention: www.cdc.gov [place] Heart Association: www.heart.org National Heart, Lung, and Blood [place]: www.nhlbi.nih.gov Summary Body mass index (BMI) is a number that is calculated from a person's weight and height. BMI may help estimate how much of a person's weight is composed of fat. BMI can help identify those who may be at higher risk for certain medical problems. BMI can be measured using Spanish measurements or metric measurements. BMI charts are used to identify whether you are underweight, normal weight, overweight, or obese. This information is not intended to replace advice given to you by your health care provider. Make sure you discuss any questions you have with your health care provider. Document Revised: 01/11/2020 Document Reviewed: 11/18/2019 [employer] Patient Education 2022 [employer] 08/27/2023 19:05:01 Health Maintenance, Female Health Maintenance, [...] provider. Document Revised: 09/09/2021 Document Reviewed: 09/09/2021 [employer] Patient Education 2022 [employer]. Follow Up Care 08/17/2023 08:42:02 With:Princess Dumont FAM, [facility] Address: [address] [place] [address] [place] [address]- When:Within 6 Week(s) Comments:weight loss and headaches [facility] 02-19-2023 Evaluation + Plan note Future Scheduled TestsU Protein/Creat Ratio 02/19/23HgbA1c 02/19/23Microalbumin Level Urine 02/19/23TSH With T4fr Reflex 02/19/23Vitamin D 25 Hydroxy 02/19/23CBC w/ Auto Diff 02/19/23Comprehensive Metabolic Panel 02/19/23Lipid Panel 02/19/23XR Spine Cervical 4 or 5 Views 02/19/23 [facility] 02-19-2023 Hospital Discharge instructions [...] includes your primary health care provider, a furniture painter, a neurologist, and a physical therapist. Follow these instructions at home: Take thrn-hdi-fvcptqm and prescription medicines only as told by [...] includes your primary health care provider, a furniture painter, a neurologist, and a physical therapist. This information is not intended to replace advice given to you by your health care provider. Make sure you discuss any questions you have with your health care provider. Document Revised: 10/24/2021 Document Reviewed: 10/24/2021 [employer] Patient Education 2022 [employer]. 02/19/2023 08:34:09 Migraine Headache Migraine Headache A [...] Follow these instructions at home: Medicines Take zcty-iko-sbvwuti and prescription medicines only as told by your health care provider. Ask your health care provider if the medicine prescribed to you: ?Requires you to avoid driving or using heavy machinery. ?Can cause constipation. You may need to take these actions to prevent or treat constipation: ?Drink enough fluid to keep your urine pale yellow. ?Take uyob-ulj-shivfqg or prescription medicines. ?Eat foods that are [...] provider. Document Revised: 08/12/2019 Document Reviewed: 06/02/2019 [employer] Patient Education 2022 [employer] 02/19/2023 08:34:03 Form - Headache Record [...] provider. Document Revised: 09/18/2021 Document Reviewed: 09/18/2021 [employer] Patient Education 2022 [employer]. 02/19/2023 01:02:45 General Headache Without Cause General [...] help with your condition: Managing pain Take zxqh-oud-tveelvs and prescription medicines only as told by [...] provider. Document Revised: 09/18/2021 Document Reviewed: 09/18/2021 [employer] Patient Education 2022 [employer] 02/19/2023 01:02:42 Form - Headache Record [...] provider. Document Revised: 09/18/2021 Document Reviewed: 09/18/2021 [employer] Patient Education 2022 [employer] 02/19/2023 01:02:37 Cervicogenic Headache Cervicogenic Headache [...] includes your primary health care provider, a furniture painter, a neurologist, and a physical therapist. Follow these instructions at home: Take vzjg-mvr-afmoxji and prescription medicines only as told by [...] includes your primary health care provider, a furniture painter, a neurologist, and a physical therapist. This information is not intended to replace advice given to you by your health care provider. Make sure you discuss any questions you have with your health care provider. Document Revised: 10/24/2021 Document Reviewed: 10/24/2021 [employer] Patient Education 2022 [employer]. 02/19/2023 01:02:35 Chronic Migraine Headache Chronic Migraine [...] Follow these instructions at home: Medicines Take biyn-kwu-ezqsymx and prescription medicines only as told by [...] for Headache and Migraine Patients (CHAMP): headachemigraine.org [place] Migraine Foundation: americanmigrainefoundation.org National Headache Foundation: headaches.org [...] provider. Document Revised: 06/06/2020 Document Reviewed: 06/06/2020 [employer] Patient Education 2022 [employer] Follow Up Care 02/17/2023 08:10:14 With:Princess Dumont FAM, MED [facility] [place] [id number]- When:Within 1 Month(s) Comments:headaches. neck pain With:Princess Dumont FAM, [facility] Address: Deborah Schrader, [address] [address]- When:Within 1 Year(s) Comments:annual wellness, anxiety/ depression [facility] 07-24-2021 Hospital Discharge instructions [...] height. This can be done either in Spanish (U.S.) or metric measurements. Note that charts are available to help you find your BMI quickly and easily without having to do these calculations yourself. To calculate your BMI in Spanish (U.S.) measurements, your health care provider will: [...] medical problems. BMI can be measured using Spanish measurements or metric measurements. To interpret your [...] 12/30/2004 Document Revised: 04/02/2018 Document Reviewed: 03/03/2018 [employer] Patient Education 2020 [employer] 07/24/2021 17:16:58 Health Maintenance, Female Health Maintenance, [...] 11/03/2011 Document Revised: 04/13/2019 Document Reviewed: 04/13/2019 [employer] Patient Education [employer]. Follow Up Care 06/26/2021 18:00:45 With:Leigh Ann Covington CNP Address: When: only if needed [facility] Evaluation + Plan note Future Appointments Appointment Date:10/03/2021 01:00:00 PM Scheduled Provider:Naya ABDI Location:[facility] Appointment Type:ILENE DAVID [facility] Evaluation + Plan note Future Appointments Appointment Date:03/25/2023 07:00:00 AM Scheduled Provider:Princess Dumont Location:[facility] Appointment Type: Open Future Scheduled TestsU Protein/Creat Ratio 02/19/23HgbA1c 02/19/23Microalbumin Level Urine 02/19/23TSH With T4fr Reflex 02/19/23Vitamin D 25 Hydroxy 02/19/23CBC w/ Auto Diff 02/19/23Comprehensive Metabolic Panel 02/19/23Lipid Panel 02/19/23XR Spine Cervical 4 or 5 Views 02/19/23 [facility] Evaluation + Plan note Future Appointments Appointment Date:10/21/2023 07:20:00 AM Scheduled Provider:Princess Dumont Location:[facility] Appointment Type: Open Future Scheduled TestsTSH With T4fr Reflex 02/19/23Vitamin D 25 Hydroxy 02/19/23CBC w/ Auto Diff 02/19/23Comprehensive Metabolic Panel 02/19/23Lipid Panel 02/19/23XR Spine Cervical 4 or 5 Views 02/19/23 [facility] Evaluation + Plan note Future Appointments Appointment Date:10/05/2024 07:00:00 AM Scheduled Provider:Mallory Judd Location:[facility] Appointment Type: Open [facility] Evaluation note Diagnosis Endometrial polyp Polyp of corpus uteri documented in this encounter [facility] Work Phone: Evaluation note* Diagnosis Pre-procedure lab exam Pre-procedural laboratory examination Female infertility Female infertility of unspecified origin documented in this encounter [facility] Work Phone: Evaluation note* Diagnosis Female infertility Female infertility of unspecified origin documented in this encounter [facility] Work Phone: Evaluation note* Diagnosis Female infertility Female infertility of unspecified origin documented in this encounter [facility] Work Phone: Evaluation note* Diagnosis Encounter for assisted reproductive fertility cycle Encounter for assisted reproductive fertility procedure cycle documented in this encounter [facility] Work Phone: Evaluation note* Diagnosis Female infertility Female infertility of unspecified origin Pre-procedure lab exam Pre-procedural laboratory examination documented in this encounter [facility] Work Phone: Evaluation note* Diagnosis Female infertility Female infertility of unspecified origin documented in this encounter [facility] Work Phone: Evaluation note* Diagnosis Female infertility Female infertility of unspecified origin documented in this encounter [facility] Work Phone: Evaluation note* Diagnosis Female infertility Female infertility of unspecified origin documented in this encounter [facility] Work Phone: Evaluation note* Diagnosis Encounter for assisted reproductive fertility cycle Encounter for assisted reproductive fertility procedure cycle documented in this encounter [facility] Work Phone: [phone] note* Diagnosis Encounter for assisted reproductive fertility cycle Encounter for assisted reproductive fertility procedure cycle documented in this encounter [facility] Work Phone: [phone] note* Diagnosis Well woman exam with routine [...] other specified origin documented in this encounter [facility] Work Phone: [phone] note* Diagnosis Fertility testing [Z31.41]- Primary Fertility testing 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 [Z31.81, N97.8] documented in this encounter [facility] Work Phone: [phone] note* Diagnosis Endometrial polyp Polyp of corpus uteri documented in this encounter [facility] Work Phone: [phone] note* Diagnosis Female infertility Female infertility of unspecified origin documented in this encounter [facility] Work Phone: [phone] note* Diagnosis Encounter for assisted reproductive fertility cycle Encounter for assisted reproductive fertility procedure cycle documented in this encounter [facility] Work Phone: [phone] note* Diagnosis Encounter for assisted reproductive fertility cycle Encounter for assisted reproductive fertility procedure cycle Encounter for test, result unknown documented in this encounter [facility] Work Phone: [phone] note* Diagnosis Encounter to determine viability of , single or unspecified fetus documented in this encounter [facility] Work Phone: [phone] note* Diagnosis Missed menses 9 weeks gestation [...] note* Diagnosis (HHS-HCC) documented in this encounter [facility] Work Phone: Evaluation note* Diagnosis Second trimester [...] note* Diagnosis Third trimester (HHS-HCC) state, incidental 35 weeks gestation of ([facility]) Encounter for in vitro fertilization Encounter for assisted reproductive fertility procedure cycle documented in this encounter [facility] Narrative No data available for this section [facility] Hospital Discharge instructions No data available for this section [facility] Progress note No data available for this section [facility] Reason for referral (narrative)* Consultation (Routine) - Authorized Specialty Diagnoses / Procedures Referred By Alejandro hyatt Referred To Contact Genetics Diagnoses Genetic screening Trish Thorpe, CHIEF LIBRARIAN EXTENSION DEPARTMENT-DIVINITY TEACHER [address] [place] [address] Referral ID Status Reason Start Date Expiration Date Visits Requested Visits Authorized [id number] Authorized Specialty Services Required 2023 12/10/2024 1 1 Electronically signed by Trish Thorpe CHIEF LIBRARIAN EXTENSION DEPARTMENT-DIVINITY TEACHER at 2023 9:25 AM EDT [facility] Work Phone: reason for visit Narrative* Imaging (Routine) - Authorized Specialty Diagnoses / Procedures Referred By Alejandro t Referred To Contact Radiology Diagnoses Female infertility Procedures KELSY US Pelvis Limited Follicles - Follicle Studies Performed America Quintanilla APRN-DIVINITY TEACHER [address] [place] [address] Phone: tel: fax: Referral ID Status Reason Start Date Expiration Date Visits Requested Visits Authorized [id number] Authorized Perform Procedure 02/02/2024 02/01/2025 8 8 [facility] Work Phone: reason for visit Narrative* Imaging (Routine) - Pending Review Specialty Diagnoses / Procedures Referred By Alejandro t Referred To Contact Radiology Diagnoses Female infertility Procedures KELSY US Pelvis Limited Follicles - Follicle Studies Performed America Quintanilla CHIEF LIBRARIAN EXTENSION DEPARTMENT-DIVINITY TEACHER [address] [place] [address] Phone: tel: fax: Referral ID Status Reason Start Date Expiration Date Visits Requested Visits Authorized [id number] Pending Review Perform Procedure 02/02/2024 02/01/2025 8 8 [facility] Work Phone: reason for visit Narrative* Procedure (Routine) - Authorized Specialty Diagnoses / Procedures Referred By Alejandro t Referred To Contact Reproductive Endocrinology and Infertility Diagnoses Encounter for assisted reproductive fertility cycle Procedures Egg Retrieval NC FOLLICLE PUNCTURE OOCYTE RETRIEVAL ANY METHOD CHG US GUIDANCE ASPIRATION OVA IMG S&I CHG OOCYTE ID FROM FOLLICULAR FLU CHG BX OOCYTE POLR BDY/AMBER BLST MICROTQ <= 5 AMBER CHG BX OOCYTE MICROTQ >5 AMBER CHG UNLISTED MOLECULAR PATHOLOGY PROCEDURE CHG CYTOGENETICS&MOLEC CYTOGENETICS INTERP&REP Beth Warren MD [address] [place] [address] Phone: tel: fax: Referral ID Status Reason Start Date Expiration Date V isits Requested Visits Authorized [id number] Authorized 01/27/2024 01/26/2025 1 1 [facility] Work Phone: Reason for visit Narrative* Imaging (Routine) - Authorized Specialty Diagnoses / Procedures Referred By Contac t Referred To Contact Radiology Diagnoses Female infertility Procedures KELSY US Pelvis Limited Follicles - Follicle Studies Performed Donya Abernathy, CHIEF LIBRARIAN EXTENSION DEPARTMENT-DIVINITY TEACHER [address] [facility], [place] [address] Phone: tel: fax: Referral ID Status Reason Start Date Expiration Date Visits Requested Visits Authorized [id number] Authorized Perform Procedure 03/01/2025 8 8 [facility] Work Phone: Reason for visit Narrative* Procedure (Routine) - Authorized Specialty Diagnoses / Procedures Referred By Alejandro hyatt Referred To Contact Reproductive Endocrinology and Infertility Diagnoses Encounter for assisted reproductive fertility cycle Procedures Egg Retrieval NC FOLLICLE PUNCTURE OOCYTE RETRIEVAL ANY METHOD CHG US GUIDANCE ASPIRATION OVA IMG S&I CHG OOCYTE ID FROM FOLLICULAR FLU CHG BX OOCYTE POLR BDY/AMBER BLST MICROTQ <= 5 AMBER CHG BX OOCYTE MICROTQ >5 AMBER CHG UNLISTED MOLECULAR PATHOLOGY PROCEDURE CHG CYTOGENETICS&MOLEC CYTOGENETICS INTERP&REP Donya Abernathy, CHIEF LIBRARIAN EXTENSION DEPARTMENT-DIVINITY TEACHER [address] [facility], [place] [address] Phone: tel: fax: Referral ID Status Reason Start Date Expiration Date V isits Requested Visits Authorized [id number] Authorized 03/01/2024 03/01/2025 1 0 [facility] Work Phone: Reason for visit Narrative* Imaging (Routine) - Authorized Specialty Diagnoses / Procedures Referred By Alejandro t Referred To Contact Radiology Diagnoses Female infertility Procedures KELSY US Endometrial Lining Check Donya Abernathy, CHIEF LIBRARIAN EXTENSION DEPARTMENT-DIVINITY TEACHER [address] [facility], [place], [facility] [address] [place] [address] Phone: tel: fax: Referral ID Status Reason Start Date Expiration Date Visits Requested Visits Authorized [id number] Authorized Perform Procedure 02/23/2025 5 5 [facility] Work Phone: Reason for visit Narrative* Procedure (Routine) - Authorized Specialty Diagnoses / Procedures Referred By Alejandro t Referred To Contact Reproductive Endocrinology and Infertility Diagnoses Encounter for assisted reproductive fertility cycle Procedures Embryo Transfer NC EMBRYO TRANSFER INTRAUTERINE CHG ULTRASONIC GUIDANCE INTRAOPERATIVE CHG THAWING CRYOPRESERVED EMBRYO CHG ASSTD EMBRYO HATCHING MICROTQS ANY METH CHG PREPJ EMBRYO TR Juan Chavarria MD [address] [place], [address] [address] Phone: tel: fax: Referral ID Status Reason Start Date Expiration Date V isits Requested Visits Authorized [id number] Authorized 06/10/2024 06/10/2025 1 1 [facility] Work Phone: Reason for visit Narrative* Imaging (Routine) - Authorized Specialty Diagnoses / Procedures Referred By Alejandro t Referred To Contact Radiology Diagnoses ([facility]) Procedures US OB detail anatomy Layo Courtney DO [address] [facility] [address], [place] [address] Phone: tel: fax: Referral ID Status Reason Start Date Expiration Date Visits Requested Visits Authorized [id number] Authorized Perform Procedure 08/15/2024 08/15/2025 1 1 [facility] Work Phone: Summary Purpose Family History No [...] polyp Procedures Polypectomy Juan Chavarria MD [address] [place], [facility] [address] [place] [address] MYLES Hay [address] [place] [address] Referral ID Status Reason Start Date Expiration Date V isits Requested Visits Authorized [id number] Authorized 01/25/2024 01/24/2025 1 1 Additional Source Comments INFORMATION SOURCE (unrecogn ized section and content) DATE CREATED AUTHOR 08/01/2022 [facility] DATE CREATED AUTHOR AUTHOR'S ORGANIZ ATION 04/04/2024 [facility] DATE CREATED AUTHOR AUTHOR'S ORGANIZ ATION 06/15/2024 [facility] DATE CREATED AUTHOR AUTHOR'S ORGANIZ ATION 07/02/2024 [facility] DATE CREATED AUTHOR AUTHOR'S ORGANIZ ATION 07/14/2024 [facility] DATE CREATED AUTHOR AUTHOR'S ORGANIZ ATION 10/11/2024 [facility] DATE CREATED AUTHOR AUTHOR'S ORGANIZ ATION 01/17/2025 [facility] dical Specialists EPIC Patient Care team informatio n (unrecognized section and content) Merchant Patroller Relationship Specialty Start Date End Date Allyssa Robles RN Registered Nurse Reproductive Endocrinology and Infertility 12/25/23 Merchant Patroller Relationship Specialty Start Date End Date Allyssa Robles RN Registered Nurse Reproductive Endocrinology and Infertility 12/25/23 Merchant Patroller Relationship Specialty Start Date End Date Allyssa Robles RN Registered Nurse Reproductive Endocrinology and Infertility 12/25/23 Merchant Patroller Relationship Specialty Start Date End Date Allyssa Robles RN Registered Nurse Reproductive Endocrinology and Infertility 12/25/23 Merchant Patroller Relationship Specialty Start Date End Date Allyssa Robles RN Registered Nurse Reproductive Endocrinology and Infertility 12/25/23 Merchant Patroller Relationship Specialty Start Date End Date Allyssa Robles RN Registered Nurse Reproductive Endocrinology and Infertility 12/25/23 Merchant Patroller Relationship Specialty Start Date End Date Allyssa Robles RN Registered Nurse Reproductive Endocrinology and Infertility 12/25/23 Merchant Patroller Relationship Specialty Start Date End Date Allyssa Robles RN Registered Nurse Reproductive Endocrinology and Infertility 12/25/23 Merchant Patroller Relationship Specialty Start Date End Date Allyssa Robles RN Registered Nurse Reproductive Endocrinology and Infertility 12/25/23 Merchant Patroller Relationship Specialty Start Date End Date Ginger Torres LPN Licensed Practical Nurse 12/10/23 Merchant Patroller Relationship Specialty Start Date End Date Allyssa Robles RN Registered Nurse Reproductive Endocrinology and Infertility 12/25/23 Merchant Patroller Relationship Specialty Start Date End Date Allyssa Robles RN Registered Nurse Reproductive Endocrinology and Infertility 12/25/23 Merchant Patroller Relationship Specialty Start Date End Date Allyssa Robles RN Registered Nurse Reproductive Endocrinology and Infertility 12/25/23 Merchant Patroller Relationship Specialty Start Date End Date Allyssa Robles RN Registered Nurse Reproductive Endocrinology and Infertility 12/25/23 Merchant Patroller Relationship Specialty Start Date End Date Allyssa Robles RN Registered Nurse Reproductive Endocrinology and Infertility 12/25/23 Reason for Visit (unrecogniz ed section and content) Specialty Diagnoses / Procedures Referred By Alejandro hyatt Referred To Contact Diagnoses Endometrial polyp Procedures Polypectomy Juan Chavarria MD [address] [facility] [place]ia [place], [place] [address] MYLES Hay [address] [place] [address] Referral ID Status Reason Start Date Expiration Date V isits Requested Visits Authorized [id number] Authorized 01/25/2024 01/24/2025 1 1 Specialty Diagnoses / Procedures Referred By Alejandro hyatt Referred To Contact Radiology Diagnoses Female infertility Procedures KELSY US Pelvis Limited Follicles - Follicle Studies Performed America Quintanilla, CHIEF LIBRARIAN EXTENSION DEPARTMENT-DIVINITY TEACHER [address] [place] [address] Referral ID Status Reason Start Date Expiration Date Visits Requested Visits Authorized [id number] Authorized Perform Procedure 02/02/2024 02/01/2025 8 8 [...] BE BASED ON THE PRIMARY CLINICAL RECORDS. [facility] [employer] provides no warranty or guarantee of the accuracy or completeness of information in this document.
[2025-02-03 16:18] VITALS: BP 127/83; PULSE 94
== END 2025-02-03 16:44 | disposition home or self-care (01) ==
LOC: FBCO 16:05 → FBC 16:13
PROVIDERS: Visit Provider Obstetrics & Gynecology
DX: O26.893 Other specified pregnancy related conditions, third trimester (principal); Z3A.36 36 weeks gestation of pregnancy
CPT/HCPCS: 59025

== ENCOUNTER 2025-02-07 14:29 | Outpatient (OUT) | payer OTHER, SELFPAY ==
--- OUTSIDE RECORDS SUMMARY | 2025-01-31 13:50 | XMS_ITS | Encounter Summary ---
Author Organization [facility] Address [address] [place] [address] Care Team Providers Care Scrap Hoist Operator Name Role Phone Unavailable Primary Care Provider Unavailabl e Encounter Details Date Type Department Care Team (Latest Contact Info) Description 01/31/2025 1:50 PM EDT Routine [facility] [address] [address] Maria M Guerrero, SECONDS HANDLER [address] [place] [address] Third trimester ([facility]); 35 weeks gestation of ([facility]); Encounter for in vitro fertilization 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 Tobacco Use Types Packs/Day Years [...] Sign Reading Time Taken Comments Blood Pressure 122/76 01/31/2025 2:07 PM EDT Pulse - - Temperature - - Respiratory Rate - - Oxygen Saturation - - Inhaled Oxygen Concentration - - Weight 104 kg (229 lb) 01/31/2025 2:07 PM EDT Height - - Body Mass Index 40.57 09/17/2022 12:00 PM EDT documented in this encounter Progress Notes * Marilia Elder MA - 01/31/2025 1:50 PM EDT Reason for Appointment: Patient ID: Sydney Garcia is a 29 y.o. female who presents for No chief complaint on file. Patient presents today for Return OB appointment. [...] SYSTEMS Review of Systems: Review of Systems All other systems reviewed and are negative. OBJECTIVE Objective: Physical Exam Constitutional: Appearance: Normal appearance. Genitourinary: Right Adnexa: not tender and no mass present. Left Adnexa: not tender and no mass present. No cervical discharge. Breasts: Breasts are soft. Right: Normal. Left: Normal. HENT: Head: Normocephalic. Nose: Nose normal. Mouth/Throat: Mouth: Mucous membranes are moist. Cardiovascular: Rate and Rhythm: Normal rate. Pulmonary: Effort: Pulmonary effort is normal. Abdominal: General: Bowel sounds are normal. Palpations: Abdomen is soft. Musculoskeletal: General: Normal range of motion. Cervical back: Normal range of motion. Neurological: General: No focal deficit present. Mental Status: She is alert. Skin: General: Skin is warm and dry. Psychiatric: Mood and Affect: Mood normal. Vitals and nursing note reviewed. Exam conducted with a truck driving instructor present. Vitals: Estimated body mass index is 40.57 kg/m?? as calculated from the following: Height as of 09/17/22: 5' 3 . Weight as of this encounter: 229 lb. BP: 122/76 No LMP recorded. Patient is . ASSESSMENT & PLAN ICD-10-CM 1. Third trimester ([facility]) Z34.93 CULTURE, GROUP B STREP WITH SUSCEPTIBLITY CULTURE, GROUP B STREP WITH SUSCEPTIBLITY CANCELED: CULTURE, GROUP B STREP WITH SUSCEPTIBLITY 2. 35 weeks gestation of ([facility]) Z3A.35 POCT urinalysis dipstick manually resulted 3. Encounter for in vitro fertilization Z31.83 US OB follow up transabdominal approach Patient is doing well but has complaints of being tired and having maternal discomfort due to . Patient verbalized frequent movement and was instructed to perform kick counts three times per day. labor precautions were given, LARC consent was signed/declined, and GBS was obtained. Cervical check was not performed at this visit. Pt declined having a cervical check. Pt states she would like to wait until next week. Orders Placed This Encounter Procedures US OB follow up transabdominal approach CULTURE, GROUP B STREP WITH SUSCEPTIBLITY POCT urinalysis dipstick manually resulted Follow Up: Patient is to return to office in 1 week for routine OB appointment Documented by Marilia Elder MA on behalf of: Maria M Guerrero NP documented in this encounter Plan of Treatment Upcoming Encounters Date Type Department Care Team (Late st Contact Info) Description 02/14/2025 2:30 PM EDT Routine [facility] [address] [place] [address] Layo Courtney DO [address] [place] [address] Scheduled Orders Name Type Priority Associated Diagnoses Orde r Schedule CULTURE, GROUP B STREP WITH SUSCEPTIBLITY Lab Routine Third trimester ([facility]) Expected: 01/31/2025, Expires: 01/31/2026 OB follow up transabdominal approach Imaging Routine Encounter for in vitro fertilization Expected: 01/31/2025, Expires: 06/02/2025 documented as of this encounter Procedures Procedure Name Priority Date/Time Associated Diagnosis Comments POCT URINALYSIS DIPSTICK Routine 01/31/2025 2:25 PM EDT 35 weeks gestation of ([facility]) documented in this encounter Results * (ABNORMAL) POCT urinalysis dipstick manually resulted (01/31/2025 2:25 PM EDT) Color, UA Yellow Clarity, UA Clear Glucose, UA Negative Negative - 2000(110) ++++ mg/dL Bilirubin, UA Negative Negative - 4(70) +++ mg/dL Ketones, UA Negative Negative - 160(16) ++++ mg/dL Spec Grav, UA 1.010 1 - 1.03 Blood, UA Negative Negative - 50 Jose/mcL pH, UA 7.0 5 - 9 Protein, UA Negative Negative - 2000(20) ++++ mg/dL Urobilinogen, UA 2.0 0.2 - 12 mg/dL Leukocytes, UA 3+ Negative - 500+++ Onel/mcL Nitrite, UA Negative Negative - Positive Urine 01/31/2025 2:25 PM EDT Maria M Guerreor NP POINT OF CARE TEST ENTER/EDIT ORDERABLES Final Result documented in this encounter Visit Diagnoses Diagnosis Third trimester ([facility]) state, incidental 35 weeks gestation of ([facility]) Encounter for in vitro fertilization Encounter for assisted reproductive fertility procedure cycle documented in this encounter
--- OUTSIDE RECORDS SUMMARY | 2025-02-07 13:40 | XMS_ITS | Encounter Summary ---
Author Organization [facility] Address [address] [place] [address] Care Team Providers Care Campus Ambassador Name Role Phone Unavailable Primary Care Provider Unavailabl e Reason for Visit * Reason Comments Routine Visit Encounter Details Date Type Department Care Team (Late st Contact Info) Description 02/07/2025 1:40 PM EDT Routine [facility] [address] [place] [address] Maria M Guerrero, MARGARITO [address] [place] [address] Third trimester ([facility]); 36 weeks gestation of ([facility]) 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 Tobacco Use Types Packs/Day [...] Sign Reading Time Taken Comments Blood Pressure 128/82 02/07/2025 1:41 PM EDT Pulse - - Temperature - - Respiratory Rate - - Oxygen Saturation - - Inhaled Oxygen Concentration - - Weight 107 kg (236 lb 6.4 oz) 02/07/2025 1:41 PM EDT Height - - Body Mass Index 41.88 09/17/2022 12:00 PM EDT documented in this encounter Plan of Treatment Upcoming Encounters Date Type Department Care Team (Late st Contact Info) Description 02/14/2025 2:30 PM EDT Routine [facility] [address] [place] [address] Layo Courtney DO [address] [place] [address] documented as of this encounter Procedures Procedure Name Priority Date/Time Associated Diagnosis Comments POCT URINALYSIS DIPSTICK Routine 02/07/2025 1:52 PM EDT 36 weeks gestation of ([facility]) documented in this encounter Results * (ABNORMAL) POCT urinalysis dipstick manually resulted (02/07/2025 1:52 PM EDT) Color, UA Yellow Clarity, UA Clear Glucose, UA Negative Negative - 2000(110) ++++ mg/dL Bilirubin, UA Negative Negative - 4(70) +++ mg/dL Ketones, UA Negative Negative - 160(16) ++++ mg/dL Spec Grav, UA 1.015 1 - 1.03 Blood, UA Negative Negative - 50 Jose/mcL pH, UA 6.5 5 - 9 Protein, UA Trace Negative - 2000(20) ++++ mg/dL Urobilinogen, UA 2.0 0.2 - 12 mg/dL Leukocytes, UA 3+ Negative - 500+++ Onel/mcL Nitrite, UA Negative Negative - Positive Urine 02/07/2025 1:52 PM EDT Maria M Guerrero NP POINT OF CARE TEST ENTER/EDIT ORDERABLES Final Result documented in this encounter Visit Diagnoses Diagnosis Third trimester ([facility]) state, incidental 36 weeks gestation of ([facility]) documented in this encounter
--- OUTSIDE RECORDS SUMMARY | 2025-02-07 14:31 | XMS_ITS | Encounter Summary ---
Author Organization [facility] Address [address] [place] [address] Phone Care Team Providers Care Endless Track Vehicle Supervisor Name Role Phone Allyssa Robles RN Unavailable Unavailable Encounter Details Date Type Department Care Team (Late st Contact Info) Description 06/13/2024 Lab Requisition [facility] [address] [place] [address] Juan Chavarria MD [address] [facility] Alexia [place], [address] [phone] Female infertility, unspecified 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 Tobacco Use [...] LAB IMMUNOASSAY METHOD 06/13/2024 2:07 PM EST [facility] Blood Venous blood specimen / Unknown 06/13/2024 11:38 AM EST 06/13/2024 12:46 PM EST Narrative [facility] - 06/13/2024 2:07 PM EST REF VALUES Male <0.2-0.8 Follicular Phase <0.2-1.5 Luteal Phase 7.4-15.4 Post Menopausal <0.2-0.2 1ST Trimester 12.0-84.0 2ND Trimester 10.2-58.8 3RD Trimester 46.5-160 Progesterone is performed using the Faith Cristopher Access Immunoassay. Progesterone testing is performed using a different test methodology at [facility] than other [facility]. Direct result comparison should only be made within the same method. us Juan Chavarria MD LAB BLOOD ORDERABLES Final R esult [facility] [address] [place] [address] documented in this encounter Visit Diagnoses Diagnosis Female infertility, unspecified documented in this encounter Care Teams Endless Track Vehicle Supervisor Relationship Specialty Start Date End Date Allyssa Robles, RN Registered Nurse Reproductive Endocrinology and Infertility 12/25/23 documented as of this encounter
--- OUTSIDE RECORDS SUMMARY | 2025-02-07 14:31 | XMS_ITS | Encounter Summary ---
Author Organization [facility] Address [address] [place] [address] Care Team Providers Care Advisory Application Developer Name Role Phone Unavailable Primary Care Provider Unavailabl e Encounter Details Date Type Department Care Team (Late st Contact Info) Description 02/07/2025 Bamboo flowsheet [facility] ZACARIAS [address] [place] [address] Maria M Guerrero, FENCE MACHINE OPERATOR [address] [facility] [address] [place] [address] 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 Tobacco Use Types Packs/Day [...] Description 02/14/2025 2:30 PM EDT Routine [facility] ZACARIAS [address] [address] Layo Courtney DO [address] [facility] [address] [place] [address] documented as of this encounter Visit Diagnoses Not on filedocumented in this encounter
--- OUTSIDE RECORDS SUMMARY | 2025-02-07 14:31 | XMS_ITS | Encounter Summary ---
Author Organization [facility] Address [address] [place] [address] Phone Care Team Providers Care Human Resources Operations Manager Name Role Phone Allyssa Robles RN Unavailable Unavailable Encounter Details Date Type Department Care Team (Late st Contact Info) Description 06/23/2024 Lab Requisition [facility] [address] [place] [address] Juan Chavarria MD [address] [facility] [place], [address] [phone] Encounter for test, result unknown 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 [...] LAB IMMUNOASSAY METHOD 06/23/2024 11:04 AM EST [facility] Comment:Low-level positive H CG results can [...] AM EST 06/23/2024 10:43 AM EST Narrative [facility] - 06/23/2024 11:04 AM EST Total HCG measurement is performed using the Faith Pinnacle Access Immunoassay which detects intact HCG and free beta HCG subunit. This test is not indicated for use as a tumor marker. HCG testing is performed using a different test methodology at [facility] than other [facility]. Direct result comparison should only be made within the same method. us Juan Chavarria MD LAB BLOOD ORDERABLES Final R esult [facility] [address] [place] [id number] documented in this encounter Visit Diagnoses Diagnosis Encounter for test, result unknown documented in this encounter Care Teams Human Resources Operations Manager Relationship Specialty Start Date End Date Allyssa Robles, RN Registered Nurse Reproductive Endocrinology and Infertility 12/25/23 documented as of this encounter
--- OUTSIDE RECORDS SUMMARY | 2025-02-07 14:31 | XMS_ITS ---
Author Organization [facility] Address [address] [place] [address] Phone Care Team Providers Care Swaging Machine Operator Name Role Phone Allyssa Robles RN Unavailable Unavailable Fertility Core Status:Enrolled (Active) Start date:02/24/2024 Enrollment date:02/29/2024 Enrollment reason:Identified from a specialty prescription Current support & services provided:Refill Management, Benefits and PA Management Linked medications:lidocaine/prilocaine (Active), progesterone (Active), transparent dressing () Continued Care and Services Coordination
--- OUTSIDE RECORDS SUMMARY | 2025-02-07 14:31 | XMS_ITS | Encounter Summary ---
Author Organization [facility] Address [address] [place] [address] Phone Care Team Providers Care Population Health Manager Name Role Phone Allyssa Robles RN Unavailable Unavailable Encounter Details Date Type Department Care Team (Late st Contact Info) Description 06/30/2024 Lab Requisition [facility] [address] [place] [address] Leigh Ann Tuttle MD [address] [facility] Alex[place], [address] [phone] Female infertility, unspecified 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 Tobacco Use [...] [facility] - 06/30/2024 10:41 AM EST Total HCG measurement is performed using the Faith Camilla Access Immunoassay which detects intact HCG and free beta HCG subunit. This test is not indicated for use as a tumor marker. HCG testing is performed using a different test methodology at [facility] than other [facility]. Direct result comparison should only be made within the same method. us Leigh Ann Tuttle MD LAB BLOOD ORDERABLES Final Re sult [facility] [address] [place] [address] documented in this encounter Visit Diagnoses Diagnosis Female infertility, unspecified documented in this encounter Care Teams Population Health Manager Relationship Specialty Start Date End Date Allyssa Robles, MISHEL Registered Nurse Reproductive Endocrinology and Infertility 12/25/23 documented as of this encounter
--- OUTSIDE RECORDS SUMMARY | 2025-02-07 14:31 | XMS_ITS | Encounter Summary ---
Author Organization [facility] Address [address] [place] [address] Care Team Providers Care Tipple Supervisor Name Role Phone Unavailable Primary Care Provider Unavailabl e Encounter Details Date Type Department Care Team (Late st Contact Info) Description 04/10/2023 Clinisync Result Encounter NOMS External Department Unsolicited Rula Courtney [address] [place] [address] 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 Tobacco Use Types Packs/Day Years [...] 02/14/2025 2:30 PM EDT Routine [facility] David OBGYIrene [address] [place] [address] [place] [address] Rula Courtney DO [address] [place] [address] [place] [address] documented as of this encounter Procedures Procedure Name Priority Date/Time Associated Diagnosis Comments FL HYSTEROSALPINGOGRAPHY 023 3:10 PM EST documented in this encounter Results * FL HYSTEROSALPINGOGRAPHY (04/10/2023 3:10 PM EST) Anatomical Region Laterality Modality Other 04/10/2023 3:10 PM EST Narrative 04/10/2023 3:[place] [address] Fluoroscopy Report Signed Patient: OLENA PEREYRA MR#: [id number] : 1995 Acct:[id number] Age/Sex: 27 / F ADM Date: 04/10/23 Loc: LAB Attending Dr: Rula Courtney D.O. Ordering Physician: Rula Courtney D.O. Date of Service: 04/10/23 Procedure(s): FL hysterosalpingography Accession Number(s): [id number] cc: Rula Courtney D.O.; Physician,Non-Staff [place] [address] [place] [address] Patient Name: OLENA PEREYRA MRN: [id number] date: 1995 Sex: F Assigned Patient Location: LAB Current Patient Location: Accession/Order Number: [id number] Exam Date: 04/10/2023 14:30 Report Date: 04/10/2023 [...] Signed By: 04/10/23 1513 DD/ 09 TD/TT: Research Quality Assurance Analyst: Procedure Note Radiology, Radiologist, - 04/10/2023 [place] [address] Fluoroscopy Report Signed Patient: OLENA PEREYRA RMR#: [id number] : 1995Acct:[id number] Age/Sex: 27 / FADM Date: 04/10/23 Loc: LAB Attending Dr: Rula Courtney D.O. Ordering Physician: Rula Courtney D.O. Date of Service: 04/10/23 Procedure(s): FL hysterosalpingography Accession Number(s): [id number] cc: Rula Courtney D.O.; Physician,Non-Staff Steven [facility] [address] [address] Patient Name: OLENA PEREYRA MRN: [id number] date: 1995 Sex: F Assigned Patient Location: LAB Current Patient Location: Accession/Order Number: [id number] Exam Date: 04/10/2023 14:30 Report Date: 04/10/2023 [...] M.D. Signed By:04/10/23 1513 DD/ 09 TD/TT: Research Quality Assurance Analyst: Rula Courtney DO [facility] Final Result documented in this encounter Visit Diagnoses Not on filedocumented in this encounter
--- OUTSIDE RECORDS SUMMARY | 2025-02-07 14:31 | XMS_ITS | Encounter Summary ---
Author Organization [facility] Address [address] [place] [address] Care Team Providers Care Dope Weigh Operator Name Role Phone Unavailable Primary Care Provider Unavailabl e Encounter Details Date Type Department Care Team (Late st Contact Info) Description 04/13/2023 Clinisync Result Encounter NOMS External Department Unsolicited Rula Courtney [address] [place] [address] 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 Tobacco Use Types Packs/Day Years [...] 2:30 PM EDT Routine [facility] David OBGYIrene [address] [place] [address] [place] [address] Rula Courtney DO [address] [place] [address] [place] [address] documented as of this encounter Procedures Procedure Name Priority Date/Time Associated Diagnosis Comments FL HYSTEROSALPINGOGRAM 10:54 AM EST documented in this encounter Results * FL HYSTEROSALPINGOGRAM (04/13/2023 10:54 AM EST) Anatomical Region Laterality Modality Other 04/13/2023 10:5 4 AM EST Narrative 04/13/2023 10:56 [place] [address] Fluoroscopy Report Signed Patient: OLENA PEREYRA MR#: [id number] : 1995 Acct:[id number] Age/Sex: 27 / F ADM Date: 04/10/23 Loc: LAB Attending Dr: Rula Courtney D.O. Ordering Physician: Rula Courtney D.O. Date of Service: 04/10/23 Procedure(s): FL Hysterosal cath placement Accession Number(s): [id number] cc: Rula Courtney D.O.; Physician,Non-Staff Steven The [place] [id number] Patient Name: OLENA PEREYRA MRN: [id number] date: 1995 Sex: F Assigned Patient Location: LAB Current Patient Location: LAB Accession/Order Number: [id number] Exam Date: 04/10/2023 14:30 Report Date: 04/13/2023 10:54 At the request of: RULA COURTNEY Procedure: FL Hysterosal cath placement EXAM: FL Hysterosal cath placement HISTORY: Infertility TECHNIQUE: FINDINGS: Please see Operative Report. Electronically authenticated by: DARRYN LONDON Date: 04/13/2023 10:54 Dictated By: Darryn London Signed By: 04/13/23 1056 DD/ 1054 TD/TT: Munitions Factory Worker: Procedure Note Radiology, Radiologist, MD - 04/13/2023 [place] [address] Fluoroscopy Report Signed Patient: OLENA PEREYRA RMR#: [id number] : 1995Acct:[id number] Age/Sex: 27 / FADM Date: 04/10/23 Loc: LAB Attending Dr: Rula Courtney D.O. Ordering Physician: Rula Courtney D.O. Date of Service: 04/10/23 Procedure(s): FL Hysterosal cath placement Accession Number(s): [id number] cc: Rula Courtney D.O.; Physician,Non-Staff Steven The [place] [id number] Patient Name: OLENA PEREYRA MRN: [id number] date: 1995 Sex: F Assigned Patient Location: LAB Current Patient Location: LAB Accession/Order Number: [id number] Exam Date: 04/10/2023 14:30 Report Date: 04/13/2023 10:54 At the request of: RULA COURTNEY Procedure: FL Hysterosal cath placement EXAM: FL Hysterosal cath placement HISTORY: Infertility TECHNIQUE: FINDINGS: Please see Operative Report. Electronically authenticated by: DARRYN LONDON Date: 04/13/2023 10:54 Dictated By: Darryn London Signed By:04/13/23 1056 DD/ 1054 TD/TT: Munitions Factory Worker: us Rula Courtney DO [facility] Final Result documented in this encounter Visit Diagnoses Not on filedocumented in this encounter
--- OUTSIDE RECORDS SUMMARY | 2025-02-07 14:31 | XMS_ITS | Encounter Summary ---
Author Organization [facility] Address [address] [place] [address] Care Team Providers Care Payroll Tax Analyst Name Role Phone Unavailable Primary Care Provider Unavailabl e Encounter Details Date Type Department Care Team (Late st Contact Info) Description 02/01/2025 Clinisync Result Encounter NOMS External Department Unsolicited Rula Courtney DO [address] [place], [place] [phone] 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 Tobacco Use Types Packs/Day Years [...] Info) Description 02/14/2025 2:30 PM EDT Routine [facility]isha Hernandez [facility] [address] [facility] [place] [phone] Rula Courtney DO [address] [place] [address] documented as of this encounter Procedures Procedure Name Priority Date/Time Associated Diagnosis Comments US OB GROWTH 02/01/2025 9:21 AM EDT documented in this encounter Results * US OB GROWTH (02/01/2025 9:21 AM EDT) Anatomical Region Laterality Modality Other 02/01/2025 9:21 AM EDT Narrative 02/01/2025 9:24 [place] [address] Ultrasound Report Signed Patient: OLENA GARCIA MR#: [id number] : 1995 Acct:[id number] Age/Sex: 29 / F ADM Date: 01/31/25 Loc: US Attending Dr: Rula Courtney D.O. Ordering Physician: Rula Courtney D.O. Date of Service: 01/31/25 Procedure(s): US OB growth Accession Number(s): [id number] cc: Rula Courtney D.O.; Physician,Non-Staff [place] [address] Patient Name: OLENA GARCIA MRN: [facility]:[id number] date: 1995 Sex: F Assigned Patient Location: [facility] Current Patient Location: LAB Accession/Order Number: [id number] Exam Date: 01/31/2025 15:22 Report Date: 02/01/2025 09:21 At the request of: RULA COURTNEY DO [...] Tol[place] M.D. 02/01/2025 9:21 AM Dictation Location: [place] [address] Electronically authenticated by: [id number] Y Date: 02/01/2025 09:21 Dictated By: Mariela Toledo M.D. Signed By: 02/01/25923 DD/ 0 TD/TT: Cavalry Officer: Procedure Note Radiology, Radiologist, MD - 02/01/2025 [place] [address] Ultrasound Report Signed Patient: OLENA GARCIA R#: [id number] : 1995Acct:[id number] Age/Sex: 29 / FADM Date: 01/31/25 Loc: US Attending Dr: Rula Courtney D.O. Ordering Physician: Rula Courtney D.O. Date of Service: 01/31/25 Procedure(s): US OB growth Accession Number(s): [id number] cc: Rula Courtney D.O.; Physician,Non-Staff Steven The [place] [id number] Patient Name: OLENA GARCIA MRN: [id number] date: 1995 Sex: F Assigned Patient Location: [facility] Current Patient Location: LAB Accession/Order Number: [id number] Exam Date: 01/31/2025 15:22 Report Date: 02/01/2025 09:21 At the request of: RULA COURTNEY DO Procedure: US OB BPP w non-stress CLINICAL DATA: resulting from IVF ULTRASOUND OB GROWTH COMPARISON: None There is a single live intrauterine gestation in cephalic presentation.There is cardiac and somatic activity with heart rate of 129 bpm. The amniotic fluid index measures 11.6 cm which is in low-normal range. Thereis an anterior placenta. The following measurements were obtained: Right parietal diameter 9.2 cm 37 weeks 2 days 89% Head circumference 33.6 cm 38 weeks 3 days 81% Abdominal circumference 32.8 cm 36 weeks 5 days 82% Femur length 7.2 cm 36 weeks 6 days 72% The composite ultrasound age based on these measurements is 37 weeks 0days +/- 1 week 0 days. The estimated [...] [place] M.D. 02/01/2025 9:21 AM Dictation Location: [place] [address] Electronically authenticated by: [id number] Y Date: 9:21 Dictated By: Mariela [place] M.D. Signed By:02/01/25923 DD/ 0 TD/TT: Cavalry Officer: us Rula Courtney DO [facility] Final Result documented in this encounter Visit Diagnoses Not on filedocumented in this encounter
--- OUTSIDE RECORDS SUMMARY | 2025-02-07 14:31 | XMS_ITS | Encounter Summary ---
Author Organization [facility] Address [address] [place] [address] [place] [address] Care Team Providers Care Floor Manager Name Role Phone Unavailable Primary Care Provider Unavailabl e Encounter Details Date Type Department Care Team (Late st Contact Info) Description 01/21/2024 Orders Only SHIRA ZACARIAS [address] [facility] [place] [phone] Marilia Elder MA [address] [facility] [place] [address] 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 Tobacco Use Types Packs/Day Years [...] Info) Description 02/14/2025 2:30 PM EDT Routine SHIRA ZACARIAS [address] [place] [address] [place] [phone] Layo Courtney DO [address] [facility] [address] [place], [place] [address] documented as of this encounter Procedures Procedure [...]
--- OUTSIDE RECORDS SUMMARY | 2025-02-07 14:31 | XMS_ITS | Encounter Summary ---
Author Organization [facility] Address [address] [place] [address] Phone Care Team Providers Care Senior Tax Manager Name Role Phone Allyssa Robles RN Unavailable Unavailable Encounter Details Date Type Department Care Team (Late st Contact Info) Description 06/06/2024 Lab Requisition [facility] [address] [place] [phone] America Chavez, WEIGHER ALLOY-LEAF STAMPER [address] [place] [address] Female infertility, unspecified 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 Tobacco Use [...] LAB IMMUNOASSAY METHOD 06/06/2024 11:56 AM EST [facility] Blood Venous blood specimen / Unknown 06/06/2024 7:00 AM EST 06/06/2024 10:58 AM EST Narrative [facility] - 06/06/2024 11:56 AM EST REF VALUES FOLLICULAR PHASE 20-144 MID CYCLE 64-357 LUTEAL PHASE 56-214 POSTMENOPAUSE < 32 PREPUBERTY < 20 FEMALE 10-18Y 8-110 MALE 10-18Y < 20 ADULT MALE < 40 America Chavez WEIGHER ALLOY-LEAF STAMPER LAB BLOOD ORDERABLES Final Result [facility] [address] [place] [id number] * Progesterone (06/06/2024 7:00 AM EST) Progesterone 0.8 ng/mL LAB IMMUNOASSAY METHOD 06/10/2024 8:43 PM EST [facility] Comment: Blood Venous blood specimen / Unknown 06/06/2024 7:00 AM EST 06/06/2024 10:58 AM EST Narrative [facility] - 06/10/2024 8:43 PM EST REF VALUES Male <0.2-0.8 Follicular Phase <0.2-1.5 Luteal Phase 7.4-15.4 Post Menopausal <0.2-0.2 1ST Trimester 12.0-84.0 2ND Trimester 10.2-58.8 3RD Trimester 46.5-160 Progesterone is performed using the [employer] Access Immunoassay. Progesterone testing is performed using a different test methodology at [facility] than other [facility]. Direct result comparison should only be made within the same method. America Chavez WEIGHER ALLOY-LEAF STAMPER LAB BLOOD ORDERABLES Edite d Result - Final [facility] [address] [place] [id number] documented in this encounter Visit Diagnoses Diagnosis Female infertility, unspecified documented in this encounter Care Teams Senior Tax Manager Relationship Specialty Start Date End Date Allyssa Robles, RN Registered Nurse Reproductive Endocrinology and Infertility 12/25/23 documented as of this encounter
--- OUTSIDE RECORDS SUMMARY | 2025-02-07 14:31 | XMS_ITS | Clinical Summary ---
Author Organization [facility] Address [address] [place] [address] Phone Care Team Providers Care Local Company Truck Driver Name Role Phone Allyssa Robles RN Unavailable Unavailable Allergies Active Allergy Reactions Criticality Noted Date Comments Latex Rash Low 2023 Nickel Rash Low 2023 Medications -xyai- folic-omega3 29-1-400 mg combo pack,tablet and cap,DR [...] C Antibody (2023 10:21 AM EDT) Pathologist [facility] Hepatitis C Anitbody Nonreactive Nonreactive LAB IMMUNOASSAY METHOD 2023 7:11 PM EDT [facility] Comment:Results from patient s taking biotin supplements or receiving high-dose biotin therapy should be interpreted with caution due to possible interference with this test. Providers may contact their local laboratory for further information. Blood Venous blood specimen / Unknown Venipuncture / Unknown 2023 10:21 AM EDT 2023 10:21 AM EDT us Trish Sun PUSHER OPERATOR-OVERHEAD GARAGE DOOR HANGER LAB BLOOD ORDERABLES Fin al Result [facility] [id number] [place], [place] [id number] * HIV 1/2 Antigen/Antibody Screen with Reflex to Confirmation (2023 10:21 AM EDT) HIV 1/2 Antigen/Antibo dy Screen with Reflex to Confirmation Nonreactive Nonreactive LAB IMMUNOASSAY METHOD 2023 7:37 PM EDT [facility] Blood Venous blood specimen / Unknown Venipuncture / Unknown 2023 10:21 AM EDT 2023 10:21 AM EDT Narrative [facility] - 2023 7:37 PM EDT HIV Ag/Ab screen is performed using the Siemens [place] HIV Ag/Ab Combo assay which detects the presence of HIV p24 antigen as well as antibodies to HIV-1 (Group M and O) and HIV-2. No laboratory evidence of HIV infection. If acute HIV infection is suspected, consider testing for HIV RNA by PCR (viral load). Trish Sun PUSHER OPERATOR-OVERHEAD GARAGE DOOR HANGER LAB BLOOD ORDERABLES Fin al Result [facility] [address] [facility] [id number] [place] [address] from Last 3 Months or Most Recently Relevant to Health Maintenance Insurance [employer] [place] [place] [employer] H[employer] Care Teams Local Company Truck Driver Relationship Specialty Start Date End Date Allyssa Robles, RN Registered Nurse Reproductive Endocrinology and Infertility 12/25/23
--- OUTSIDE RECORDS SUMMARY | 2025-02-07 14:31 | XMS_ITS | Encounter Summary ---
Author Organization [facility] Address [address] [place] [address] Care Team Providers Care Security Control Room Officer Name Role Phone Unavailable Primary Care Provider Unavailabl e Encounter Details Date Type Department Care Team (Late st Contact Info) Description 11/18/2024 Abstract [facility] Yanira ZACARIAS [facility] [place] [address] Layo Courtney DO [address], [facility] 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 Tobacco Use Types Packs/Day Years [...] Description 02/14/2025 2:30 PM EDT Routine NOMKenisha ZACARIAS [facility] [place] [address] Layo Courtney DO [address], [facility] documented as of this encounter Visit Diagnoses Not on filedocumented in this encounter
--- OUTSIDE RECORDS SUMMARY | 2025-02-07 14:31 | XMS_ITS | Encounter Summary ---
Author Organization [facility] Address [address] [place] [address] Care Team Providers Care Digital Print Operator Name Role Phone Unavailable Primary Care Provider Unavailabl e Encounter Details Date Type Department Care Team (Late st Contact Info) Description 01/31/2025 Bamboo flowsheet NOMKenisha ZACARIAS [address] [place] [address] Maria M Guerrero, ROOFER ASSISTANT [address] [facility] [place] [address] 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 Tobacco Use Types Packs/Day [...] PM EDT Routine NOMS Yanira ZACARIAS [address] [facility] [place] [address] Layo Courtney DO [address] [facility] [place] [address] documented as of this encounter Visit Diagnoses Not on filedocumented in this encounter
--- OUTSIDE RECORDS SUMMARY | 2025-02-07 14:31 | XMS_ITS | Encounter Summary ---
Author Organization [facility] Address [address] [place] [address] Care Team Providers Care Dynamometer Tuner Name Role Phone Unavailable Primary Care Provider Unavailabl e Encounter Details Date Type Department Care Team (Late st Contact Info) Description 08/02/2024 Abstract [facility] Yanira ZACARIAS [facility] [place] [address] Layo Courtney DO [address], [facility] 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 Tobacco Use Types Packs/Day Years [...] 02/14/2025 2:30 PM EDT Routine NOMKenisha ZACARIAS [facility] [place] [address] Layo Courtney DO [address], [facility] documented as of this encounter Visit Diagnoses Not on filedocumented in this encounter
--- OUTSIDE RECORDS SUMMARY | 2025-02-07 14:31 | XMS_ITS | Encounter Summary ---
Author Organization [facility] Address [address] [place] [address] Phone Care Team Providers Care Sample Washer Name Role Phone Allyssa Robles RN Unavailable Unavailable Encounter Details Date Type Department Care Team (Late st Contact Info) Description 06/07/2024 Lab Requisition [facility] [address] [place] [address] America Chavez, TIE HACKER-CORN CUTTER OPERATOR [address] [place] [address] Female infertility, unspecified 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 Tobacco Use [...] IMMUNOASSAY METHOD 06/10/2024 8:33 PM EST [facility] Comment: Blood Venous blood specimen / Unknown 06/07/2024 8:45 AM EST 06/07/2024 10:22 AM EST Narrative [facility] - 06/10/2024 8:33 PM EST REF VALUES Male <0.2-0.8 Follicular Phase <0.2-1.5 Luteal Phase 7.4-15.4 Post Menopausal <0.2-0.2 1ST Trimester 12.0-84.0 2ND Trimester 10.2-58.8 3RD Trimester 46.5-160 Progesterone is performed using the [employer] Prenatal Access Immunoassay. Progesterone testing is performed using a different test methodology at [facility] than other [facility]. Direct result comparison should only be made within the same method. America Chavez APRNPerioSealCORN CUTTER OPERATOR LAB BLOOD ORDERABLES Edite d Result - Final Performing Organization Address City/State/[facility] Co de Phone Number [facility] [address] [place] [id number] * Estradiol (06/07/2024 8:45 AM EST) Estradiol 2,870 pg/mL LAB IMMUNOASSAY METHOD 06/07/2024 10:43 AM EST [facility] Blood Venous blood specimen / Unknown 06/07/2024 8:45 AM EST 06/07/2024 10:22 AM EST Narrative [facility] - 06/07/2024 10:43 AM EST REF VALUES FOLLICULAR PHASE 20-144 MID CYCLE 64-357 LUTEAL PHASE 56-214 POSTMENOPAUSE < 32 PREPUBERTY < 20 FEMALE 10-18Y 8-110 MALE 10-18Y < 20 ADULT MALE < 40 America Chavez TIE HACKER-CORN CUTTER OPERATOR LAB BLOOD ORDERABLES Final Result [facility] [address] [place] [address] documented in this encounter Visit Diagnoses Diagnosis Female infertility, unspecified documented in this encounter Care Teams Sample Washer Relationship Specialty Start Date End Date Allyssa Robles, MISHEL Registered Nurse Reproductive Endocrinology and Infertility 12/25/23 documented as of this encounter
--- OUTSIDE RECORDS SUMMARY | 2025-02-07 14:31 | XMS_ITS | Encounter Summary ---
Author Organization [facility] Address [address] [place] [address] Care Team Providers Care Line Cook Name Role Phone Unavailable Primary Care Provider Unavailabl e Encounter Details Date Type Department Care Team (Late st Contact Info) Description 01/25/2025 Clinisync Result Encounter N[facility] External Department Unsolicited Rula Courtney [address], [place] [phone] 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 Tobacco Use Types Packs/Day Years [...] PM EDT Routine [facility] [address] [facility] [place] [phone] Rula Courtney DO [address] [place] [address] documented as of this encounter Procedures Procedure Name Priority Date/Time Associated Diagnosis Comments US OB BPP W NON-STRESS 01/25/2025 6:24 PM EDT documented in this encounter Results * US OB BPP W NON-STRESS (01/25/2025 6:24 PM EDT) Anatomical Region Laterality Modality Other 01/25/2025 6:24 PM EDT Narrative 01/25/2025 6:27 PM EDT [address] [address] Ultrasound Report Signed Patient: OLENA GARCIA MR#: [id number] : 1995 Acct:[id number] Age/Sex: 29 / F ADM Date: 01/25/25 Loc: US Attending Dr: Rula Courtney D.O. Ordering Physician: Rula Courtney D.O. Date of Service: 01/25/25 Procedure(s): US OB BPP w non-stress Accession Number(s): [id number] cc: Rula Courtney D.O.; Physician,Non-Staff Steven [address] [address] Patient Name: OLENA GARCIA MRN: [id number] date: 1995 Sex: F Assigned Patient Location: [facility] Current Patient Location: US Accession/Order Number: [id number] Exam Date: 01/25/2025 16:50 Report Date: 01/25/2025 18:24 At the request of: RULA COURTNEY DO Procedure: US OB BPP w non-stress Ultrasound biophysical profile INDICATION: Abnormal biophysical profile 01/24/2025 FINDINGS: The flame degreaser reports a BPP of 8 out of 8 LONNY is normal at 10.9 cm. heart rate 134. Heterogeneous appearance of the placenta hypoechoic focus measuring 1.3 x 2.8 x 2.0 cm in size. US/US OB BPP w non-stress IMPRESSION: BPP 8 out of 8. Impression dictated by: Bernabe Romero M.D. 01/25/2025 6:24 PM Dictation Location: [place] [address] Electronically authenticated by: [id number] Y Date: 01/25/2025 18:24 Dictated By: Bernabe Romero M.D. Signed By: 01/25/25 1827 DD/ 23 TD/TT: Interactive Media Project Manager: Procedure Note Radiology, Radiologist, MD - 01/25/2025 [place] [address] Ultrasound Report Signed Patient: OLENA GARCIA RMR#: [id number] : 1995Acct:[id number] Age/Sex: 29 / FADM Date: 01/25/25 Loc: US Attending Dr: Rula Courtney D.O. Ordering Physician: Rula Courtney D.O. Date of Service: 01/25/25 Procedure(s): US OB BPP w non-stress Accession Number(s): [id number] cc: Rula Courtney D.O.; Physician,Non-Staff Steven The [place] [id number] Patient Name: OLENA GARCIA MRN: [id number] date: 1995 Sex: F Assigned Patient Location: [facility] Current Patient Location: US Accession/Order Number: [id number] Exam Date: 01/25/2025 16:50 Report Date: 01/25/2025 18:24 At the request of: RULA COURTNEY DO Procedure: US OB BPP w non-stress Ultrasound biophysical profile INDICATION: Abnormal biophysical profile 01/24/2025 FINDINGS: The flame degreaser reports a BPP of 8 out of 8 LONNY is normal at10.9 cm. heart rate 134. Heterogeneous appearance of the placenta hypoechoic focus measuring 1.3 x 2.8 x 2.0 cm in size. US/US OB BPP w non-stress IMPRESSION: BPP 8 out of 8. Impression dictated by: Bernabe Romero M.D. 01/25/2025 6:24 PM Dictation Location: [place] [address] Electronically authenticated by: [id number] Y Date: 8:24 Dictated By: Bernabe Romero M.D. Signed By:01/25/251826 DD/ 23 TD/TT: Interactive Media Project Manager: us Rula Courtney DO [facility] Final Result documented in this encounter Visit Diagnoses Not on filedocumented in this encounter
--- OUTSIDE RECORDS SUMMARY | 2025-02-07 14:31 | XMS_ITS | Encounter Summary ---
Author Organization [facility] Address [address] [place] [address] Care Team Providers Care Landcare Facilitator Name Role Phone Unavailable Primary Care Provider Unavailabl e Encounter Details Date Type Department Care Team (Late st Contact Info) Description 02/01/2025 Clinisync Result Encounter [facility] External Department Unsolicited Rula Courtney DO [address], [place] [phone] 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 Tobacco Use Types Packs/Day Years [...] PM EDT Routine [facility] [address] [facility] [place] [phone] Rula oCurtney DO [address] [place] [address] documented as of this encounter Procedures Procedure Name Priority Date/Time Associated Diagnosis Comments US OB BPP W NON-STRESS 02/01/2025 9:21 AM EDT documented in this encounter Results * US OB BPP W NON-STRESS (02/01/2025 9:21 AM EDT) Anatomical Region Laterality Modality Other 02/01/2025 9:21 AM EDT Narrative 02/01/2025 9:24 [place] [address] Ultrasound Report Signed Patient: OLENA GARCIA MR#: [id number] : 1995 Acct:[id number] Age/Sex: 29 / F ADM Date: 01/31/25 Loc: US Attending Dr: Rula Courtney D.O. Ordering Physician: Rula Courtney D.O. Date of Service: 01/31/25 Procedure(s): US OB BPP w non-stress Accession Number(s): [id number] cc: Rula Courtney D.O.; Physician,Non-Staff Steven [place] [address] Patient Name: OLENA GARCIA MRN: [id number] date: 1995 Sex: F Assigned Patient Location: US Current Patient Location: LAB Accession/Order Number: [id number] Exam Date: 01/31/2025 15:22 Report Date: 02/01/2025 [...] [place] M.D. 02/01/2025 9:21 AM Dictation Location: [place] [address] Electronically authenticated by: [id number] Y Date: 02/01/2025 09:21 Dictated By: Mariela [place] M.D. Signed By: 02/01/25923 DD/ 0 TD/TT: Food Safety Manager: Procedure Note Radiology, Radiologist, MD - 02/01/2025 [place] [address] Ultrasound Report Signed Patient: OLENA GARCIA RMR#: [id number] : 1995Acct:[id number] Age/Sex: 29 / FADM Date: 01/31/25 Loc: US Attending Dr: Rula Courtney D.O. Ordering Physician: Rula Courtney D.O. Date of Service: 01/31/25 Procedure(s): US OB BPP w non-stress Accession Number(s): [id number] cc: Rula Courtney D.O.; Physician,Non-Staff Steven The [address] [address] Patient Name: OLENA GARCIA MRN: [id number] date: 1995 Sex: F Assigned Patient Location: US Current Patient Location: LAB Accession/Order Number: [id number] Exam Date: 01/31/2025 15:22 Report Date: 02/01/2025 [...] [place] M.D. 02/01/2025 9:21 AM Dictation Location: [place] [address] Electronically authenticated by: [id number] Y Date: 9:21 Dictated By: Mariela [place] M.D. Signed By:02/01/25923 DD/ 0 TD/TT: Food Safety Manager: us Rula Courtney DO [facility] Final Result documented in this encounter Visit Diagnoses Not on filedocumented in this encounter
--- OUTSIDE RECORDS SUMMARY | 2025-02-07 14:31 | XMS_ITS | Encounter Summary ---
Author Organization [facility] Address [address] [place] [address] Phone Care Team Providers Care Food Tester Name Role Phone Allyssa Robles RN Unavailable Unavailable Encounter Details Date Type Department Care Team (Late st Contact Info) Description 06/23/2024 [facility] [address] [place] [phone] America Chavez, MAGAZINE EDITOR-SOLICITING FREIGHT AGENT [address] [place] [address] Female infertility, unspecified 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 Tobacco Use [...] Hold for add-ons. 06/23/2024 10:02 AM EST [facility] Comment:Auto resulted. Blood Venous blood specimen / Unknown 06/23/2024 7:53 AM EST 06/23/2024 8:35 AM EST America Chavez [facility] Final Result Performing Organization Address City/[facility]/ZIP Co de Phone Number [facility] [address] [place], [place] [id number] * Phleb Charge - Venipuncture (Lab Use Only) (06/23/2024 7:53 AM EST) Blood Venous blood specimen / Unknown 06/23/2024 7:53 AM EST 06/23/2024 8:35 AM EST America Chavez [facility] LAB BLOOD ORDERABLES Final Result Performing Organization Address City/[facility]/ZIP Co de Phone Number [facility] [address] [place] [address] * Estradiol (06/23/2024 7:53 AM EST) Estradiol 378 pg/mL LAB IMMUNOASSAY METHOD 06/23/2024 9:14 AM EST [facility] Blood Venous blood specimen / Unknown 06/23/2024 7:53 AM EST 06/23/2024 8:35 AM EST Narrative [facility] - 06/23/2024 9:14 AM EST REF VALUES FOLLICULAR PHASE 20-144 MID CYCLE 64-357 LUTEAL PHASE 56-214 POSTMENOPAUSE < 32 PREPUBERTY < 20 FEMALE 10-18Y 8-110 MALE 10-18Y < 20 ADULT MALE < 40 Estradiol measurement is performed using the [employer] Access Estradiol Immunoassay. Estradiol testing is performed using a different test methodology at [facility] than other [facility]. Direct result comparison should only be made within the same method. Americaroxy Chavez MAGAZINE EDITORQHB HOLDINGSSOLICITING FREIGHT AGENT LAB BLOOD ORDERABLES Final Result Performing Organization Address City/[facility]/ZIP Co de Phone Number [facility] [address] [place] [address] * Progesterone (06/23/2024 7:53 AM EST) [facility] Progesterone 42.6 ng/mL LAB IMMUNOASSAY METHOD 06/23/2024 10:10 AM EST [facility] Blood Venous blood specimen / Unknown 06/23/2024 7:53 AM EST 06/23/2024 8:35 AM EST Narrative [facility] - 06/23/2024 10:10 AM EST REF VALUES Male <0.2-0.8 Follicular Phase <0.2-1.5 Luteal Phase 7.4-15.4 Post Menopausal <0.2-0.2 1ST Trimester 12.0-84.0 2ND Trimester 10.2-58.8 3RD Trimester 46.5-160 Progesterone is performed using the [employer] Access Immunoassay. Progesterone testing is performed using a different test methodology at [facility] than other [facility]. Direct result comparison should only be made within the same method. Americaroxy Chavez MAGAZINE EDITORQHB HOLDINGSSOLICITING FREIGHT AGENT LAB BLOOD ORDERABLES Final Result Performing Organization Address City/[facility]/ZIP Co de Phone Number [facility] [id number] [place] [address] documented in this encounter Visit Diagnoses Diagnosis Female infertility, unspecified documented in this encounter Care Teams Food Tester Relationship Specialty Start Date End Date Allyssa Robles, RN Registered Nurse Reproductive Endocrinology and Infertility 12/25/23 documented as of this encounter
--- OUTSIDE RECORDS SUMMARY | 2025-02-07 14:31 | XMS_ITS | Encounter Summary ---
Author Organization [facility] Address [address] [place] [address] Care Team Providers Care Canine Service Teacher Name Role Phone Unavailable Primary Care Provider Unavailabl e Encounter Details Date Type Department Care Team (Late st Contact Info) Description 01/24/2025 Clinisync Result Encounter NOMS External Department Unsolicited Rula Courtney [address], [place] [phone] 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 Tobacco Use Types Packs/Day Years [...] PM EDT Routine [facility] [address] [facility] [phone] Rula Courtney DO [address] [place] [address] documented as of this encounter Procedures Procedure Name Priority Date/Time Associated Diagnosis Comments US OB BPP W NON-STRESS 01/24/2025 7:55 PM EDT documented in this encounter Results * US OB BPP W NON-STRESS (01/24/2025 7:55 PM EDT) Anatomical Region Laterality Modality Other 01/24/2025 7:55 PM EDT Narrative 01/24/2025 7:58 PM EDT [place] [id number] Ultrasound Report Signed Patient: OLENA GARCIA MR#: [id number] : 1995 Acct:[id number] Age/Sex: 29 / F ADM Date: 01/24/25 Loc: US Attending Dr: Rula Courtney D.O. Ordering Physician: Rula Courtney D.O. Date of Service: 01/24/25 Procedure(s): US OB BPP w non-stress Accession Number(s): [id number] cc: Rula Courtney D.O.; Physician,Non-Staff Steven [address] [address] Patient Name: OLENA GARCIA MRN: [id number] date: 1995 Sex: F Assigned Patient Location: [facility] Current Patient Location: Accession/Order Number: [id number] Exam Date: 01/24/2025 16:10 Report Date: 01/24/2025 19:55 At the request of: RULA COURTNEY DO Procedure: US OB BPP w non-stress Biophysical profile. Reason for exam: resulting in vitro fertilization COMPARISON: 01/17/2025 TECHNIQUE: Transabdominal imaging of the gravid uterus was obtained. FINDINGS: The photographic colorist reports a BPP of 6 out of 8 with 0/2 for gross body movements.. LONNY is normal at 11.9 cm. heart rate 148 bpm. US/US OB BPP w non-stress IMPRESSION: BPP 6out of 8. Correlation with NST is suggested. Impression dictated by: Juan Salinas Jr., D.O. 01/24/2025 7:55 PM Dictation Location: [place] [address] Electronically authenticated by: [id number] Y Date: 01/24/2025 19:55 Dictated By: Juan Salinas M.D. Signed By: 01/24/251957 DD/ 54 TD/TT: Cow Trimmer: Procedure Note Radiology, Radiologist, MD - 01/24/2025 [place] [address] Ultrasound Report Signed Patient: OLENA GARCIA RMR#: [id number] : 1995Acct:[id number] Age/Sex: 29 / FADM Date: 01/24/25 Loc: US Attending Dr: Rula Courtney D.O. Ordering Physician: Rula Courtney D.O. Date of Service: 01/24/25 Procedure(s): US OB BPP w non-stress Accession Number(s): [id number] cc: Rula Courtney D.O.; Physician,Non-Staff Steven The [place] [id number] Patient Name: OLENA GARCIA MRN: [id number] date: 1995 Sex: F Assigned Patient Location: [facility] Current Patient Location: Accession/Order Number: [id number] Exam Date: 01/24/2025 16:10 Report Date: 01/24/2025 19:55 At the request of: RULA COURTNEY DO Procedure: US OB BPP w non-stress Biophysical profile. Reason for exam: resulting in vitro fertilization COMPARISON: 01/17/2025 TECHNIQUE: Transabdominal imaging of the gravid uterus was obtained. FINDINGS: The photographic colorist reports a BPP of 6 out of 8 with 0/2 for grossbody movements.. LONNY is normal at 11.9 cm. heart rate 148 bpm. US/US OB BPP w non-stress IMPRESSION: BPP 6out of 8. Correlation with NST is suggested. Impression dictated by: Juan Salinas Jr., D.O. 01/24/2025 7:55 PM Dictation Location: [place] [address] Electronically authenticated by: [id number] Y Date: 9:55 Dictated By: Juan Salinas M.D. Signed By:01/24/251957 DD/ 54 TD/TT: Cow Trimmer: us Rula Courtney DO [facility] Final Result documented in this encounter Visit Diagnoses Not on filedocumented in this encounter
--- OUTSIDE RECORDS SUMMARY | 2025-02-07 14:31 | XMS_ITS | Encounter Summary ---
Author Organization [facility] Address [address] [place] [address] Care Team Providers Care Wood Router Name Role Phone Unavailable Primary Care Provider Unavailabl e Encounter Details Date Type Department Care Team (Late st Contact Info) Description 09/21/2024 Abstract [facility] Yanira ZACARIAS [facility] [place] [address] Layo Courtney DO [address], [facility]11 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 Tobacco Use Types Packs/Day [...] 02/14/2025 2:30 PM EDT Routine NOMKenisha ZACARIAS [facility] [place] [address] Layo Courtney DO [address], [facility]11 documented as of this encounter Visit Diagnoses Not on filedocumented in this encounter
--- OUTSIDE RECORDS SUMMARY | 2025-02-07 14:31 | XMS_ITS | Clinical Summary ---
Author Organization [facility] Address [address] [place] [address] Care Team Providers Care Gasfitter Name Role Phone Unavailable Primary Care Provider [...] Encounters Date Type Department Care Team Description 02/07/2025 1:40 PM EDT Routine [facility] David ZACARIAS [address] [place] [address] Maria M Guerrero NP Third trimester ([facility]); 36 weeks gestation of ([facility]) 02/07/2025 [place] [address] Maria M Guerrero NP 02/01/2025 Clinisync Result Encounter NOMS External Department Unsolicited Rula Courtney, 02/01/2025 Clinisync Result Encounter NOMS External Department Unsolicited Rula Courtney, 01/31/2025 1:50 PM EDT Routine [facility] David ZACARIAS [address] [place] [address] Maria M Guerrero NP Third trimester ([facility]); 35 weeks gestation of ([facility]); Encounter for in vitro fertilization 01/31/2025 [place] [id number] Maria M Guerrero NP 01/25/2025 Clinisync Result Encounter NOMS External Department Unsolicited Sherwin, Rula, DO 01/24/2025 Clinisync Result Encounter NOMS External Department Unsolicited Sherwin, Rula, DO 01/18/2025 Clinisync Result Encounter NOMS External Department Unsolicited Sherwin, Rula, DO 01/16/2025 2:50 PM EDT [place] [address] Rula Courtney, DO 33 weeks gestation of ([facility]); Third trimester ([facility]); Group B streptococcal infection; resulting from in vitro fertilization in first trimester ([facility]) 01/16/2025 Bamboo flowsheet [facility] David [facility]BG[facility] [address] [place] [address] Rula Courtney, 01/10/2025 Clinisync Result Encounter NOMS External Department Unsolicited Sherwin, Rula, DO 01/03/2025 10:00 [place] [address] Rula Courtney, Third trimester ([facility]); 31 weeks gestation of ([facility]); resulting from in vitro fertilization in third trimester ([facility]) 01/03/2025 Bamboo flowsheet [facility] David ZACARIAS [address] [place] [address] Rula Courtney, 12/21/2024 [place] [address] Marilia Elder MA 12/19/2024 10:00 AM EDT Routine [facility] David OBGYN [address] [place] [address] Rula Courtney, DO 29 weeks gestation of ([facility]); Third trimester ([facility]); Leukocytes in urine; Other microscopic hematuria 12/19/2024 9:30 AM EDT Ancillary Procedure [facility] David TIPTONGYN [address] [place] [address] resulting from in vitro fertilization in second trimester ([facility]) 12/06/2024 8:30 AM EDT Routine [facility] David [place] [address] Rula Courtney, DO 27 weeks gestation of ([facility]); Second trimester ([facility]); resulting from in vitro fertilization in second trimester ([facility]) 12/06/2024 Clinisync Result Encounter NOMS External Department Unsolicited Rula Courtney, DO 12/06/2024 Bamboo flowsheet NOMS David TPITONGYIrene [place] [address] Rula Courtney, DO 11/28/2024 Telephone [facility] David TIPTONGYIrene [address] [place] [address] Rula Courtney, DO 11/26/2024 Clinisync Result Encounter NOMS External Department Unsolicited Rula Courtney, DO 11/18/2024 Abstract [facility] David [facility]BG[facility] [address] [place] [address] Rula Courtney, DO 11/08/2024 2:40 PM EDT Routine [facility] David [facility] [address] [place] [address] Rula Courtney, DO Second trimester ([facility]); 26 weeks gestation of ([facility]); Diabetes mellitus screening 11/08/2024 Abstract [facility] David TIPTONGYIrene [address] [place] [address] Emilia Donahue MA from Last 3 Months [...] 6.4 oz) 02/07/2025 1:41 PM EDT Height 160 cm (5' 3 ) 09/17/2022 12:00 PM EDT Body Mass Index 41.88 09/17/2022 12:00 PM EDT Plan of Treatment Upcoming Encounters Date Type Department Care Team (Late st Contact Info) Description 02/14/2025 2:30 PM EDT Routine NOMKenisha ZACARIAS [address] [place] [address] Rula Courtney DO [address] [place] [address] Procedures Procedure Name Priority Date/Time Associated Diagnosis Comments POCT URINALYSIS DIPSTICK Routine 02/07/2025 1:52 PM EDT 36 weeks gestation of ([facility]) US OB BPP W NON-STRESS 02/01/2025 9:21 AM EDT US OB GROWTH 02/01/2025 9:21 AM EDT POCT URINALYSIS DIPSTICK Routine 01/31/2025 2:25 PM EDT 35 weeks gestation of ([facility]) US OB BPP W NON-STRESS 01/25/2025 6:24 PM EDT US OB BPP W NON-STRESS 01/24/2025 7:55 PM EDT US OB BPP W NON-STRESS 01/18/2025 9:02 AM EDT POCT URINALYSIS DIPSTICK Routine 01/16/2025 3:20 PM EDT 33 weeks gestation of ([facility]) Third trimester ([facility]) US OB BPP W NON-STRESS 01/10/2025 9:07 PM EDT POCT URINALYSIS DIPSTICK Routine 01/03/2025 10:22 AM EDT Third trimester ([facility]) 31 weeks gestation of ([facility]) URINARY TRACT INFECTION (HTRX) Routine 12/19/2024 11:28 AM EDT POCT URINALYSIS DIPSTICK Routine 12/19/2024 10:11 AM EDT 29 weeks gestation of ([facility]) Third trimester ([facility]) US OB FOLLOW UP TRANSABDOMINAL APPROACH Routine 12/19/2024 9:56 AM EDT resulting from in vitro fertilization in second trimester ([facility]) GLUCOSE TOLERANCE 3 HOUR Routine 12/06/2024 11:26 AM EDT POCT URINALYSIS DIPSTICK Routine 12/06/2024 8:40 AM EDT 27 weeks gestation of ([facility]) Second trimester ([facility]) GLUCOSE 1 HOUR Routine 11/26/2024 10:03 AM EDT ALL CBC WITH AUTO DIFF Routine 10:03 AM EDT POCT URINALYSIS DIPSTICK Routine 11/09/2024 11:39 AM EDT Second trimester ([facility]) 26 weeks gestation of ([facility]) from Last 3 Months Results * (ABNORMAL) POCT urinalysis dipstick manually resulted (02/07/2025 1:52 PM EDT) Only the most recent of7 resultswithin the time period is included. Color, [...] - Positive Urine 02/07/2025 1:52 PM EDT us Maria M Guerrero NP POINT OF CARE TEST ENTER/EDIT ORDERABLES Final Result * US OB GROWTH (02/01/2025 9:21 AM EDT) Anatomical Region Laterality Modality Other 02/01/2025 9:21 AM EDT Narrative 02/01/2025 9:24 AM EDT [address] [address] Ultrasound Report Signed Patient: OLENA GARCIA MR#: [id number] : 1995 Acct:[id number] Age/Sex: 29 / F ADM Date: 01/31/25 Loc: US Attending Dr: Rula Courtney D.O. Ordering Physician: Rula Courtney D.O. Date of Service: 01/31/25 Procedure(s): US OB growth Accession Number(s): [id number] cc: Rula Courtney D.O.; Physician,Non-Staff [place] [address] Patient Name: OLENA GARCIA MRN: [facility]:[id number] date: 1995 Sex: F Assigned Patient Location: [facility] Current Patient Location: LAB Accession/Order Number: [id number] Exam Date: 01/31/2025 15:22 Report Date: 02/01/2025 [...] [place] M.D. 02/01/2025 9:21 AM Dictation Location: [place] [address] Electronically authenticated by: [id number] Y Date: 02/01/2025 09:21 Dictated By: Mariela [place] M.D. Signed By: 02/01/25923 DD/ 0 TD/TT: Hazmat Truck Driver: Procedure Note Radiology, Radiologist, MD - 02/01/2025 [place] [address] Ultrasound Report Signed Patient: OLENA GARCIA RMR#: [id number] : 1995Acct:[id number] Age/Sex: 29 / FADM Date: 01/31/25 Loc: US Attending Dr: Rula Courtney D.O. Ordering Physician: Rula Courtney D.O. Date of Service: 01/31/25 Procedure(s): US OB growth Accession Number(s): [id number] cc: Rula Courtney D.O.; Physician,Non-Staff Steven The [place] [id number] Patient Name: OLENA GARCIA MRN: [id number]:[id number] date: 1995 Sex: F Assigned Patient Location: [facility] Current Patient Location: LAB Accession/Order Number: [id number] Exam Date: 01/31/2025 15:22 Report Date: 02/01/2025 [...] [place] M.D. 02/01/2025 9:21 AM Dictation Location: [place] [address] Electronically authenticated by: [id number] Y Date: : Dictated By: Mariela [place] M.D. Signed By:02/01/25923 DD/ 0 TD/TT: Hazmat Truck Driver: us Rula Sherwin DO [facility] Final Result * US OB BPP W NON-STRESS (02/01/2025 9:21 AM EDT) Only the most recent of5 resultswithin the time period is included. Anatomical Region Laterality Modality Other 02/01/2025 9:21 AM EDT Narrative 02/01/2025 9:24 AM EDT The [address] [address] Ultrasound Report Signed Patient: OLENA GARCIA MR#: [id number] : 1995 Acct:[id number] Age/Sex: 29 / F ADM Date: 01/31/25 Loc: US Attending Dr: Rula Courtney D.O. Ordering Physician: Rula Courtney D.O. Date of Service: 01/31/25 Procedure(s): US OB BPP w non-stress Accession Number(s): [id number] cc: Rula Courtney D.O.; Physician,Non-Staff [place] [address] Patient Name: OLENA GARCIA MRN: [facility]:[id number] date: 1995 Sex: F Assigned Patient Location: US Current Patient Location: LAB Accession/Order Number: [id number] Exam Date: 01/31/2025 15:22 Report Date: 02/01/2025 [...] [place] M.D. 02/01/2025 9:21 AM Dictation Location: [place] [address] Electronically authenticated by: [id number] Y Date: 02/01/2025 09:21 Dictated By: Mariela [place] M.D. Signed By: 02/01/25923 DD/ 0 TD/TT: Hazmat Truck Driver: Procedure Note Radiology, Radiologist, MD - 02/01/2025 [place] [address] Ultrasound Report Signed Patient: OLENA GARCIA RMR#: [id number] : 1995Acct:[id number] Age/Sex: 29 / FADM Date: 01/31/25 Loc: US Attending Dr: Rula Courtney D.O. Ordering Physician: Rula Courtney D.O. Date of Service: 01/31/25 Procedure(s): US OB BPP w non-stress Accession Number(s): [id number] cc: Rula Courtney D.O.; Physician,Non-Staff [place] [id number] Patient Name: OLENA GARCIA MRN: [facility]:[id number] date: 1995 Sex: F Assigned Patient Location: US Current Patient Location: LAB Accession/Order Number: [id number] Exam Date: 01/31/2025 15:22 Report Date: 02/01/2025 [...] [place] M.D. 02/01/2025 9:21 AM Dictation Location: [place] [address] Electronically authenticated by: [id number] Y Date: 9:21 Dictated By: Mariela [place] M.D. Signed By:02/01/25923 DD/ 0 TD/TT: Hazmat Truck Driver: us Rula Sherwin DO [facility] Final Result * (ABNORMAL) URINARY TRACT INFECTION (HTRX) (12/19/2024 11:28 AM EDT) ACINETOBACTER BAUMANII 0 19.961 - 24.689 ppm 12/20/2024 7:51 AM EDT [facility] ACINETOBACTER BAUMANII Not Detected 19.961 - 24.689 ppm 12/20/2024 7:51 AM EDT [facility] CITROBACTER FREUNDII 0 23.000 - 32.015 ppm 12/20/2024 7:51 AM EDT [facility] CITROBACTER FREUNDII Not Detected 23.000 - 32.015 ppm 12/20/2024 7:51 AM EDT [facility] ENTEROBACTER AEROGENES, CLOACAE 0 23.000 - 32.290 ppm 12/20/2024 7:51 AM EDT [facility] ENTEROBACTER AEROGENES, CLOACAE Not Detected 23.000 - 32.290 ppm 12/20/2024 7:51 AM EDT [facility] ENTEROCOCCUS FAECALIS, FAECIUM 0 26.000 - 33.043 ppm 12/20/2024 7:51 AM EDT [facility] ENTEROCOCCUS FAECALIS, FAECIUM Not Detected 26.000 - 33.043 ppm 12/20/2024 7:51 AM EDT [facility] ESCHERICHIA COLI 0 23.000 - 28.500 ppm 12/20/2024 7:51 AM EDT [facility] ESCHERICHIA COLI Not Detected 23.000 - 28.500 ppm 12/20/2024 7:51 AM EDT [facility] KLEBSIELLA PNEUMONIAE, OXYTOCA 0 23.000 - 31.865 ppm 12/20/2024 7:51 AM EDT [facility] KLEBSIELLA PNEUMONIAE, OXYTOCA Not Detected 23.000 - 31.865 ppm 12/20/2024 7:51 AM EDT [facility] MORGANELLA MORGANII 0 19.961 - 24.689 ppm 12/20/2024 7:51 AM EDT [facility] MORGANELLA MORGANII Not Detected 19.961 - 24.689 ppm 12/20/2024 7:51 AM EDT [facility] PROTEUS MIRABILIS, VULGARIS 0 23.000 - 28.500 ppm 12/20/2024 7:51 AM EDT [facility] PROTEUS MIRABILIS, VULGARIS Not Detected 23.000 - 28.500 ppm 12/20/2024 7:51 AM EDT [facility] PSEUDOMONAS AERUGINOSA 0 23.000 - 31.801 ppm 12/20/2024 7:51 AM EDT [facility] PSEUDOMONAS AERUGINOSA Not Detected 23.000 - 31.801 ppm 12/20/2024 7:51 AM EDT [facility] STAPHYLOCOCCUS AUREUS 0 26.000 - 31.595 ppm 12/20/2024 7:51 AM EDT [facility] STAPHYLOCOCCUS AUREUS Not Detected 26.000 - 31.595 ppm 12/20/2024 7:51 AM EDT [facility] STREPTOCOCCUS AGALACTIAE (GROUP B STREP) 30.017(A) 26.000 - 32.435 ppm 12/20/2024 7:51 AM EDT [facility] STREPTOCOCCUS AGALACTIAE (GROUP B STREP) Detected(A) 26.000 - 32.435 ppm 12/20/2024 7:51 AM EDT [facility] PRESTON ALBICANS, PARAPSILOSIS, TROPICALIS 0 23.000 - 30.347 ppm 12/20/2024 7:51 AM EDT [facility] PRESTON ALBICANS, PARAPSILOSIS, TROPICALIS Not Detected 23.000 - 30.347 ppm 12/20/2024 7:51 AM EDT [facility] PRESTON GLABRATA 0 23.000 - 31.618 ppm 12/20/2024 7:51 AM EDT [facility] PRESTON GLABRATA Not Detected 23.000 - 31.618 ppm 12/20/2024 7:51 AM EDT [facility] PRESTON KRUSEI 0 23.000 - 30.873 ppm 12/20/2024 7:51 AM EDT [facility] PRESTON KRUSEI Not Detected 23.000 - 30.873 ppm 12/20/2024 7:51 AM EDT [facility] SERRATIA MARCESCENS 0 23.000 - 31.581 ppm 12/20/2024 7:51 AM EDT [facility] SERRATIA MARCESCENS Not Detected 23.000 - 31.581 ppm 12/20/2024 7:51 AM EDT [facility] STREPTOCOCCUS PYOGENES (GROUP A STREP) 0 19.961 - 24.689 ppm 12/20/2024 7:51 AM EDT [facility] STREPTOCOCCUS PYOGENES (GROUP A STREP) Not Detected 19.961 - 24.689 ppm 12/20/2024 7:51 AM EDT [facility] STAPHYLOCOCCUS EPIDERMIDIS, HAEMOLYTICUS, LUGDUNENSIS, SAPROPHYTICUS (URINA 0 19.961 - 24.689 ppm 12/20/2024 7:51 AM EDT [facility] STAPHYLOCOCCUS EPIDERMIDIS, HAEMOLYTICUS, LUGDUNENSIS, SAPROPHYTICUS (URINA Not Detected 19.961 - 24.689 ppm 12/20/2024 7:51 AM EDT [facility] STAPHYLOCOCCUS EPIDERMIDIS, HAEMOLYTICUS, LUGDUNENSIS, SAPROPHYTICUS (URINA 0 19.961 - 24.689 ppm 12/20/2024 7:51 AM EDT [facility] STAPHYLOCOCCUS EPIDERMIDIS, HAEMOLYTICUS, LUGDUNENSIS, SAPROPHYTICUS (URINA Not Detected 19.961 - 24.689 ppm 12/20/2024 7:51 AM EDT [facility] Urine 12/19/2024 11:2 8 AM EDT 12/20/2024 1:37 AM EDT us Rula Sherwin DO LAB BLOOD ORDERABLES Final Resul t [facility] [address] [address] * US OB follow up transabdominal approach [...] II, MD, PHD at 22-Dec-2024 08:03:51 AM [facility] Procedure Note Toñito Friend MD - [...] TOÑITO FRIEND II, MD, PHD 08:03:51 AM [facility] us Rula Sherwin DO IMG OB [...] us Rula Courtney DO [facility] Final Result [facility] from Last 3 Months Insurance [employer]
--- OUTSIDE RECORDS SUMMARY | 2025-02-07 14:31 | XMS_ITS | Encounter Summary ---
Author Organization [facility] Address [address] [place] [address] Care Team Providers Care Utilities Operator Name Role Phone Unavailable Primary Care Provider Unavailabl e Encounter Details Date Type Department Care Team (Late st Contact Info) Description 11/08/2024 Abstract [facility] Yanira ZACARIAS [address] [place] [address] Emilia Donahue MA 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 [...] 2:30 PM EDT Routine NOMKenisha ZACARIAS [address] [place] [address] Layo Courtney DO [address] [facility] [address] [place], [place] [id number] documented as of this encounter Visit Diagnoses Not on filedocumented in this encounter
--- OUTSIDE RECORDS SUMMARY | 2025-02-07 14:31 | XMS_ITS | Encounter Summary ---
Author Organization [facility] Address [address] [place] [address] Care Team Providers Care Brass Plater Name Role Phone Unavailable Primary Care Provider Unavailabl e Encounter Details Date Type Department Care Team (Late st Contact Info) Description 09/21/2024 Abstract [facility] Yanira ZACARIAS [facility] [place] [address] Layo Courtney DO [address] [place], [id number] 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 Tobacco Use Types Packs/Day Years [...] 02/14/2025 2:30 PM EDT Routine NOMKenisha ZACARIAS [facility] [place] [address] Layo Courtney DO [address] [place], [id number] documented as of this encounter Visit Diagnoses Not on filedocumented in this encounter
--- OUTSIDE RECORDS SUMMARY | 2025-02-07 14:31 | XMS_ITS | Encounter Summary ---
Author Organization [facility] Address [address] [place] [address] Care Team Providers Care Radiologist Chief Of Breast Imaging Name Role Phone Unavailable Primary Care Provider Unavailabl e Encounter Details Date Type Department Care Team (Late st Contact Info) Description 03/23/2023 Abstract [facility]ira [facility] [address] [facility] [facility] [place] [address] Cassy Licea LPN [address] [facility] [place] [address] 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 Tobacco Use Types Packs/Day [...] 2:30 PM EDT Routine NOMKenisha ZACARIAS [address] [facility] [place] [address] Layo Courtney DO [address] [facility] [address] [place], [facility] documented as of this encounter Visit Diagnoses Not on filedocumented in this encounter
--- NOTE | 2025-02-07 14:43 | US_ITS ---
[place] [address] Patient Name: OLENA ROMERO MRN: [id number] date: 1995 Sex: F Assigned Patient Location: [facility] Current Patient Location: [facility] Accession/Order Number: [id number] Exam Date: 02/07/2025 14:45 Report Date: 02/07/2025 16:05 At the request of: RULA SMITH DO Procedure: US OB BPP w non-stress Ultrasound biophysical profile INDICATION: IVF FINDINGS: The automobile body customizer reports a BPP of 8 out of 8 LONNY is normal at 10.6 cm. heart rate 147. Heterogeneous appearance of the placenta hypoechoic focus measuring 2.4 x 1.9 x 1.6 cm in size. US/US OB BPP w non-stress IMPRESSION: BPP 8 out of 8. Impression dictated by: Bernabe Romero M.D. 02/07/2025 4:05 PM Dictation Location: [place] [address] Electronically authenticated by: [id number] Y Date: 02/07/2025 16:05
--- OUTSIDE RECORDS SUMMARY | 2025-02-07 14:53 | XMS_ITS | CCD ---
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 Name Role Phone Rachana LYONS Primary Care [...] LAYO Attending Unavailable SHERWIN, LAYO Attending Unavailable YOMAIRA GUERRERO Attending Unavailable Allergies Allergy Classification Reported Allergen(s) Allergy Type Date of Onset Reaction(s) Facility (20 sources) Azithromycin; Translations: [azithromycin] Drug Allergy 03-16-2023 Unknown (qualifier value), Unknown [facility] Work Phone: (20 sources) Latex; Translations: [Latex] Drug allergy 03-16-2023 Rash [facility] Work Phone: (20 sources) nickel; Translations: [Nickel] Drug Allergy 03-16-2023 Rash, Itching [facility] Work Phone: Medications [...] tablet Indications: Pruritus of in second trimester (HHS-HCC) Take 1 tablet (10 mg) by mouth [...] Do not use to face, armpits, groin., [facility]/pharmacy #[id number], 162, cm, 10/02/23 11:23:00 EDT, Height/Length Dosing, 76.7, kg, 10/02/23 11:23:00 EDT, Weight Dosing Start Date: 10/02/23 Status: Ordered Start: 02-10-2022 clobetasol pro pionate 0.05% top oint 1 bonifacio, Topical, BID, 45 gram, Refill(s) 0, Apply a thin film to affected area. Do not use to face, armpits, groin., [facility], 160, cm, 07/24/21 17:02:00 EDT, Height/Length Dosing, 71.6, kg, 07/24/21 17:02:00 EDT, Weight Dosing Start Date: 02/10/22 Status: Ordered Start: 01-29-2021 clobetasol pro pionate 0.05% top oint 1 bonifacio, Topical, BID, 45 gram, Refill(s) 1, [facility] 1985, 160, cm, 01/29/21 16:48:00 [...] spasm, # 30 tab(s), Refills(s) 1, Pharmacy: [facility]/pharmacy #[id number], 162, cm, 02/19/23 7:51:00 EDT, [...] Refill(s) 6, Therapeutic tx; may refill early, [facility] 1986, 160, cm, 09/27/20 16:16:00 [...] 10 days 30 capsule 10/11/2024 12/06/2024 Discontinued Octoberl .09/30 oral tablet (1 source) Start: 09-27-2020 take 1 tablet by mouth once daily Octoberl oral tablet 1 tab(s), Oral, Daily, 84 tab(s), Refill(s) 6, Therapeutic tx; may refill early, [facility] 1986, 160, cm, 09/27/20 16:16:00 [...] second trimester ([facility]) Day 1: 6 tablets Day 2: 5 tablets Day 3: 4 tablets Day 4: 3 tablets Day 5: 2 tablets Day 6: 1 tablet 21 tablet 10/04/2024 12/06/2024 Discontinued Start: 10-04-2024 methylPREDNISo lone (Medrol Dospak) 4 MG tablets Indications: Pruritus of in second trimester ([facility]) Day 1: 6 tablets Day [...] hour of each main meal containing fat, [facility] 1986, 160, cm, 07/24/21 17:02:00 EDT, Height/Length [...] Take 1 each by mouth Daily Active kihobmoc04-gwap-ytm ic-omega3 29-1-400 mg combo pack,tablet and cap,DR (14 sources) zdrehlyc47-wjxr- f olic-omega3 29-1-400 mg combo pack,tablet and [...] Daily, # 90 tab(s), Refills(s) 3, Pharmacy: [facility]/pharmacy #[id number], 162, cm, 10/02/23 11:23:00 EDT, Height/Length Dosing, 76.7, kg, 10/02/23 11:23:00 EDT, Weight Dosing Start Date: 10/02/23 Status: Ordered Start: 08-27-2023 take 2 tablets by mo ut once daily Topamax 25 mg Tab 50 mg = 2 tab(s), Oral, Daily, # 180 tab(s), Refills(s) 0, Pharmacy: [facility]/pharmacy #[id number], 162, cm, 08/27/23 17:49:00 EDT, [...] 4-7, # 90 tab(s), Refills(s) 1, Pharmacy: [facility]/pharmacy #[id number], 162, cm, 02/19/23 7:51:00 EDT, [...] Panel InformationOrdered By: Radiologist Radiology on 02-01-2025 [employer] Work Phone: No Panel Informationon 02-01 Radiology Study observation (narrative) [facility] US OB BPP W NON-STRESS on 02-01-2025 [place] [address] Ultrasound Report Signed Patient: SYDNEY ROMERO MR#: [id number] : 1995 Acct:[id number] Age/Sex: 29 / F ADM Date: 01/31/25 Loc: US Attending Dr: Layo Courtney D.O. Ordering Physician: Layo Courtney D.O. Date of Service: 01/31/25 Procedure(s): US OB BPP w non-stress Accession Number(s): [id number] cc: Layo Courtney D.O.; Physician,Non-Staff Steven The [place] [id number] Patient Name: SYDNEY ROMERO MRN: [id number]:[id number] date: 1995 Sex: F Assigned Patient Location: US Current Patient Location: LAB Accession/Order Number: [id number] Exam Date: 01/31/2025 15:22 Report Date: 02/01/2025 [...] [Y] 2/2 LONNY: 11.6 cm Total score: 12/09 IMPRESSION: NORMAL BIOPHYSICAL PROFILE Impression dictated by: Mariela Toledo M.D. 02/01/2025 9:21 AM Dictation Location: [place] [address] Electronically authenticated by: [id number] Y Date: 02/01/2025 09:21 Dictated By: Mariela Toledo M.D. 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 Ordering Physician: Layo Courtney D.O. Date of Service: 01/31/25 Procedure(s): US OB BPP w non-stress Accession Number(s): [id number] cc: Layo Courtney D.O.; Physician,Non-Staff Steven The [address] [address] Patient Name: SYDNEY ROMERO MRN: [facility]:[id number] date: 1995 Sex: F Assigned Patient Location: US Current Patient Location: LAB Accession/Order Number: [id number] Exam Date: 01/31/2025 15:22 Report Date: 02/01/2025 [...] Toledo M.D. 02/01/2025 9:21 AM Dictation Location: [place] [address] Electronically authenticated by: [id number] Y Date: 02/01/2025 09:21 Dictated By: Mariela Toledo M.D. 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 Ordering Physician: Layo Courtney D.O. Date of Service: 01/31/25 Procedure(s): US OB growth Accession Number(s): [id number] cc: Layo Courtney D.O.; Physician,Non-Staff Steven The [address] [address] Patient Name: SYDNEY ROMERO MRN: [id number]:[id number] date: 1995 Sex: F Assigned Patient Location: [facility] Current Patient Location: LAB Accession/Order Number: [id number] Exam Date: 01/31/2025 15:22 Report Date: 02/01/2025 [...] Toledo M.D. 02/01/2025 9:21 AM Dictation Location: [place] [address] Electronically authenticated by: [id number] Y Date: 02/01/2025 09:21 Dictated By: Mariela Toledo M.D. 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 Forging Machine Operator: [facility] Radiology, Radiologist, MD - 02/01/2025 [place] [address] Ultrasound Report Signed Patient: SYDNEY ROMERO MR#: [id number] : 1995 Acct:[id number] Age/Sex: 29 / F ADM Date: 01/31/25 Loc: US Attending Dr: Layo Courtney D.O. Ordering Physician: Layo Courtney D.O. Date of Service: 01/31/25 Procedure(s): US OB growth Accession Number(s): [id number] cc: Layo Courtney D.O.; Physician,Non-Staff Steven The [place] [address] Patient Name: SYDNEY ROMERO MRN: [facility]:[id number] date: 1995 Sex: F Assigned Patient Location: [facility] Current Patient Location: LAB Accession/Order Number: [id number] Exam Date: 01/31/2025 15:22 Report Date: 02/01/2025 [...] Toledo M.D. 02/01/2025 9:21 AM Dictation Location: [place] [address] Electronically authenticated by: [id number] Y Date: 02/01/2025 09:21 Dictated By: Mariela Toledo M.D. 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 Forging Machine Operator: [facility] Urinalysis macro (dipstick) panel (U)on 01-31-2025 Bilirubin, UA Negative Negative - 4(70) +++ mg/dL [facility] Blood, UA Negative Negative - 50 Jose/mcL [facility] Clarity, UA Clear [facility] Color, UA Yellow [facility] Glucose, UA Negative Negative - 2000(110) ++++ mg/dL [facility] Interpretation and review of laboratory results Abnormal [facility] Ketones, UA Negative Negative - 160(16) ++++ mg/dL [facility] Leukocytes, UA 3+ Negative - 500+++ Onel/mcL [facility] Nitrite, UA Negative Negative - Positive [facility] pH, UA 7 5 - 9 [facility] Protein, UA Negative Negative - 2000(20) ++++ mg/dL [facility] Spec Grav, UA 1.01 1 - 1.03 [facility] Urobilinogen, UA 2.0 0.2 - 12 mg/dL [facility] US OB BPP W NON-STRESS on 01-25-2025 [place] [address] Ultrasound Report Signed Patient: SYDNEY ROMERO MR#: [id number] : 1995 Acct:[id number] Age/Sex: 29 / F ADM Date: 01/25/25 Loc: US Attending Dr: Layo Courtney D.O. Ordering Physician: Layo Courtney D.O. Date of Service: 01/25/25 Procedure(s): US OB BPP w non-stress Accession Number(s): [id number] cc: Layo Courtney D.O.; Physician,Non-Staff M.Nadir The [place] [address] Patient Name: SYDNEY ROMERO MRN: [facility]:[id number] date: 1995 Sex: F Assigned Patient Location: [facility] Current Patient Location: US Accession/Order Number: [id number] Exam Date: 01/25/2025 16:50 Report Date: 01/25/2025 18:24 At the request of: LAYO COURTNEY DO Procedure: US OB BPP w non-stress Ultrasound biophysical profile INDICATION: Abnormal biophysical profile 01/24/2025 FINDINGS: The paster hat lining reports a BPP of 8 out of 8 LONNY is normal at 10.9 cm. heart rate 134. Heterogeneous appearance of the placenta hypoechoic focus measuring 1.3 x 2.8 x 2.0 cm in size. US/US OB BPP w non-stress IMPRESSION: BPP 8 out of 8. Impression dictated by: Bernabe Romero M.D. 01/25/2025 6:24 PM Dictation Location: [place] [address] Electronically authenticated by: [id number] Y Date: 01/25/2025 18:24 Dictated By: Bernabe Romero M.D. Signed By: 01/25/251826 DD/ 23 TD/TT: Heavy Forging Machine Operator: [facility] Radiology, Radiologist, MD - 01/25/2025 [place] [address] Ultrasound Report Signed Patient: SYDNEY ROMERO MR#: [id number] : 1995 Acct:[id number] Age/Sex: 29 / F ADM Date: 01/25/25 Loc: US Attending Dr: Layo Courtney D.O. Ordering Physician: Layo Courtney D.O. Date of Service: 01/25/25 Procedure(s): US OB BPP w non-stress Accession Number(s): [id number] cc: Layo Courtney D.O.; Physician,Non-Staff Steven The [place] [id number] Patient Name: SYDNEY ROMERO MRN: [facility]:[id number] date: 1995 Sex: F Assigned Patient Location: [facility] Current Patient Location: US Accession/Order Number: [id number] Exam Date: 01/25/2025 16:50 Report Date: 01/25/2025 18:24 At the request of: LAYO COURTNEY DO Procedure: US OB BPP w non-stress Ultrasound biophysical profile INDICATION: Abnormal biophysical profile 01/24/2025 FINDINGS: The paster hat lining reports a BPP of 8 out of 8 LONNY is normal at 10.9 cm. heart rate 134. Heterogeneous appearance of the placenta hypoechoic focus measuring 1.3 x 2.8 x 2.0 cm in size. US/US OB BPP w non-stress IMPRESSION: BPP 8 out of 8. Impression dictated by: Bernabe Romero M.D. 01/25/2025 6:24 PM Dictation Location: [place] [address] Electronically authenticated by: [id number] Y Date: 01/25/2025 18:24 Dictated By: Bernabe Romero M.D. 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 Ordering Physician: Layo Courtney D.O. Date of Service: 01/24/25 Procedure(s): US OB BPP w non-stress Accession Number(s): [id number] cc: Layo Courtney D.O.; Physician,Non-Staff Steven The [address] [address] Patient Name: SYDNEY ROMERO MRN: [id number]:[id number] date: 1995 Sex: F Assigned Patient Location: [facility] Current Patient Location: Accession/Order Number: [id number] Exam Date: 01/24/2025 16:10 Report Date: 01/24/2025 19:55 At the request of: LAYO COURTNEY DO Procedure: US OB BPP w non-stress Biophysical profile. Reason for exam: resulting in vitro fertilization COMPARISON: 01/17/2025 TECHNIQUE: Transabdominal imaging of the gravid uterus was obtained. FINDINGS: The paster hat lining reports a BPP of 6 out of 8 with 0/2 for gross body movements.. LONNY is normal at 11.9 cm. heart rate 148 bpm. US/US OB BPP w non-stress IMPRESSION: BPP 6out of 8. Correlation with NST is suggested. Impression dictated by: Juan Salinas Jr., D.O. 01/24/2025 7:55 PM Dictation Location: [facility] Electronically authenticated by: [id number] Y Date: 01/24/2025 19:55 Dictated By: Juan Salinas M.D. Signed By: 01/24/251957 DD/ 54 TD/TT: Heavy Forging Machine Operator: [facility] Radiology, Radiologist, MD - 01/24/2025 [place] [address] Ultrasound Report Signed Patient: SYDNEY ROMERO MR#: [id number] : 1995 Acct:[id number] Age/Sex: 29 / F ADM Date: 01/24/25 Loc: US Attending Dr: Layo Courtney D.O. Ordering Physician: Layo Courtney D.O. Date of Service: 01/24/25 Procedure(s): US OB BPP w non-stress Accession Number(s): [id number] cc: Layo Courtney D.O.; Physician,Non-Staff Steven The [place] [id number] Patient Name: SYDNEY ROMERO MRN: [facility]:[id number] date: 1995 Sex: F Assigned Patient Location: [facility] Current Patient Location: Accession/Order Number: [id number] Exam Date: 01/24/2025 16:10 Report Date: 01/24/2025 19:55 At the request of: LAYO COURTNEY DO Procedure: US OB BPP w non-stress Biophysical profile. Reason for exam: resulting in vitro fertilization COMPARISON: 01/17/2025 TECHNIQUE: Transabdominal imaging of the gravid uterus was obtained. FINDINGS: The paster hat lining reports a BPP of 6 out of 8 with 0/2 for gross body movements.. LONNY is normal at 11.9 cm. heart rate 148 bpm. US/US OB BPP w non-stress IMPRESSION: BPP 6out of 8. Correlation with NST is suggested. Impression dictated by: Juan Salinas Jr., D.O. 01/24/2025 7:55 PM Dictation Location: [place] [address] Electronically authenticated by: [id number] Y Date: 01/24/2025 19:55 Dictated By: Juan Salinas M.D. 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 Ordering Physician: Layo Courtney D.O. Date of Service: 01/17/25 Procedure(s): US OB BPP w non-stress Accession Number(s): [id number] cc: Layo Courtney D.O.; Physician,Non-Staff M.Nadir The [address] [address] Patient Name: SYDNEY ROMERO MRN: [id number] date: 1995 Sex: F Assigned Patient Location: [facility] Current Patient Location: Accession/Order Number: [id number] Exam Date: 01/17/2025 16:08 Report Date: 01/18/2025 [...] Toledo M.D. 01/18/2025 9:02 AM Dictation Location: [place] [address] Electronically authenticated by: [id number] Y Date: 01/18/2025 09:02 Dictated By: Mariela Toledo M.D. 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 Forging Machine Operator: [facility] Radiology, Radiologist, - 01/18/2025 [place] [address] Ultrasound Report Signed Patient: SYDNEY ROMERO MR#: [id number] : 1995 Acct:[id number] Age/Sex: 29 / F ADM Date: 01/17/25 Loc: US Attending Dr: Layo Courtney D.O. Ordering Physician: Layo Courtney D.O. Date of Service: 01/17/25 Procedure(s): US OB BPP w non-stress Accession Number(s): [id number] cc: Layo Courtney D.O.; Physician,Non-Staff Steven The [place] [address] Patient Name: SYDNEY ROMERO MRN: [id number] date: 1995 Sex: F Assigned Patient Location: [facility] Current Patient Location: Accession/Order Number: [id number] Exam Date: 01/17/2025 16:08 Report Date: 01/18/2025 [...] Toledo M.D. 01/18/2025 9:02 AM Dictation Location: [place] [address] Electronically authenticated by: [id number] Y Date: 01/18/2025 09:02 Dictated By: Mariela Toledo M.D. 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 Forging Machine Operator: [facility] Radiology Study observation (narrative) [facility] OB BPP W NON-STRESS Ordered By: Radiologist Radiology on 01-18-2025 [facility] Work Phone: Urinalysis macro (dipstick) panel (U)on 01-16-2025 Bilirubin, UA Negative Negative - 4(70) +++ mg/dL [facility] Blood, UA Negative Negative - 50 Jose/mcL [facility] Clarity, UA Clear [facility] Color, UA Yellow [facility] Glucose, UA Negative Negative - 1999(110) ++++ mg/dL [facility] Interpretation and review of laboratory results Abnormal [facility] Ketones, UA Negative Negative - 160(16) ++++ mg/dL [facility] Leukocytes, UA Positive Negative - 500+++ Onel/mcL [facility] Nitrite, UA Negative Negative - Positive [facility] pH, UA 6 5 - 9 [facility] Protein, UA Positive Negative - 1999(20) ++++ mg/dL [facility] Spec Grav, UA 1.03 1 - 1.03 [facility] Urobilinogen, UA 1.0 0.2 - 12 mg/dL [facility] US OB BPP W NON-STRESS on 01-10-2025 [place] [address] Ultrasound Report Signed Patient: SYDNEY ROMERO MR#: [id number] : 1995 Acct:[id number] Age/Sex: 29 / F ADM Date: 01/10/25 Loc: US Attending Dr: Layo Courtney D.O. Ordering Physician: Layo Courtney D.O. Date of Service: 01/10/25 Procedure(s): US OB BPP w non-stress Accession Number(s): [id number] cc: Layo Courtney D.O.; Physician,Non-Staff M.DBetito The [place] [id number] Patient Name: SYDNEY ROMERO MRN: [id number] date: 1995 Sex: F Assigned Patient Location: Current Patient Location: Accession/Order Number: [id number] Exam Date: 01/10/2025 16:03 Report Date: 01/10/2025 [...] Romero M.D. 01/10/2025 9:07 PM Dictation Location: [place] [address] Electronically authenticated by: [id number] Y Date: 01/10/2025 21:07 Dictated By: Bernabe Romero M.D. 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 Forging Machine Operator: [facility] Radiology, Radiologist, MD - 01/10/2025 [place] [address] Ultrasound Report Signed Patient: SYDNEY ROMERO MR#: [id number] : 1995 Acct:[id number] Age/Sex: 29 / F ADM Date: 01/10/25 Loc: US Attending Dr: Layo Courtney D.O. Ordering Physician: Layo Courtney D.O. Date of Service: 01/10/25 Procedure(s): US OB BPP w non-stress Accession Number(s): [id number] cc: Layo Courtney D.O.; Physician,Non-Staff Steven The [address] [address] Patient Name: SYDNEY ROMERO MRN: [facility]:[id number] date: 1995 Sex: F Assigned Patient Location: US Current Patient Location: Accession/Order Number: [id number] Exam Date: 01/10/2025 16:03 Report Date: 01/10/2025 [...] Romero M.D. 01/10/2025 9:07 PM Dictation Location: [facility] Electronically authenticated by: [id number] Y Date: 01/10/2025 21:07 Dictated By: Bernabe Romero M.D. 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 Forging Machine Operator: [facility] Radiology Study observation (narrative) [facility] US OB BPP W NON-STRESS Ordered By: Radiologist Radiology on 01-10-2025 [facility] Work Phone: Urinalysis macro (dipstick) panel (U)on 01-03-2025 Bilirubin, UA Negative Negative - 4(70) +++ mg/dL [facility] Blood, UA Negative Negative - 50 Jose/mcL [facility] Clarity, UA Clear [facility] Color, UA Yellow [facility] Glucose, UA Trace Negative - 1999(110) ++++ mg/dL [facility] Interpretation and review of laboratory results Abnormal [facility] Ketones, UA Negative Negative - 160(16) ++++ mg/dL [facility] Leukocytes, UA Positive Negative - 500+++ Onel/mcL [facility] Nitrite, UA Negative Negative - Positive [facility] pH, UA 8 5 - 9 [facility] Protein, UA Negative Negative - 2000(20) ++++ mg/dL [facility] Spec Grav, UA 1.015 1 - 1.03 [facility] Urobilinogen, UA 1.0 0.2 - 12 mg/dL [facility] US OB FOLLOW UP TRANSABDOMIN AL [...] II, MD, PHD at 22-Dec-2024 08:03:51 AM [facility] Normal Not Available Comment on above: Order Comment: US OB SCAN FOR GROWTH Estimated Date of Delivery: 03/01/25 Gestational Age as of 12/06/2024: 27w6d Urinalysis macro (dipstick) panel (U)on 12-19-2024 Bilirubin, UA Negative Negative - 4(70) +++ mg/dL [facility] Blood, UA Positive Negative - 50 Jose/mcL [facility] Clarity, UA Clear [facility] Color, UA Yellow [facility] Glucose, UA Negative Negative - 2000(110) ++++ mg/dL [facility] Interpretation and review of laboratory results Abnormal [facility] Ketones, UA Negative Negative - 160(16) ++++ mg/dL [facility] Leukocytes, UA Positive Negative - 500+++ Onel/mcL [facility] Comment on above: 3+ Nitrite, UA Negative Negative - Positive [facility] pH, UA 6 5 - 9 [facility] Protein, UA Positive Negative - 1999(20) ++++ mg/dL [facility] Spec Grav, UA 1.03 1 - 1.03 [facility] Urobilinogen, UA 1.0 0.2 - 12 mg/dL [facility] GLUCOSE TOLERANCE 3 HOURon 0 12-06-2024 GLUCOSE TOLERANCE 3 HOUR mg/dL [facility] Comment on above: GLU FAST 90 (<95) Co l: 12/06/24 1126 GLU 1HR 143 (<180) Col: 12/06/24 1235 GLU 2HR 132 (<155) Col: 12/06/24 1327 GLU 3HR 81 (<140) Col: 12/06/24 1432 [facility] Urinalysis macro (dipstick) panel (U)on 12-06-2024 Bilirubin, UA Negative Negative - 4(70) +++ mg/dL [facility] Blood, UA Negative Negative - 50 Jose/mcL [facility] Clarity, UA Clear [facility] Color, UA Yellow [facility] Glucose, UA Negative Negative - 1999(110) ++++ mg/dL [facility] Interpretation and review of laboratory results Abnormal [facility] Ketones, UA Negative Negative - 160(16) ++++ mg/dL [facility] Leukocytes, UA 3+ Negative - 500+++ Onel/mcL [facility] Nitrite, UA Negative Negative - Positive [facility] pH, UA 8 5 - 9 [facility] Protein, UA Negative Negative - 1999(20) ++++ mg/dL [facility] Spec Grav, UA 1.015 1 - 1.03 [facility] Urobilinogen, UA 1.0 0.2 - 12 mg/dL [facility] ALL CBC WITH AUTO DIFFon BASOPHILS ABSOLUTE AUTO 0 N [facility] Basophils/100 WBC (Bld) 0.3 % 0.2 - 2.0 % [facility] Eosinophils/100 WBC (Bld) 1.1 % 0.9 - 7.0 % [facility] Erythrocyte distribution width (RBC) [Ratio] 12.4 % 11.0 - 15.0 % [facility] Hematocrit (Bld) [Volume fraction] 38.9 % 36.0 - 48.0 % [facility] Hemoglobin (Bld) [Mass/Vol] 13.6 g/dL 12.0 - 16.0 g/dL [facility] IMMATURE GRANULOCYTES ABS AUTO 0.13 High [facility] Immature granulocytes/100 WBC (Bld) 1.4 % High 0.0 - 0.5 % [facility] Interpretation and review of laboratory results Abnormal [facility] LYMPHOCYTES ABSOLUTE AUTO 1.7 [facility] Lymphocytes/100 WBC (Bld) 18.9 % Low 20.5 - 60. 0 % [facility] MCH (RBC) [Entitic mass] 31.5 pg 26. 7 - 34.0 pg [facility] MCHC (RBC) [Mass/Vol] 35 g/dL 29.9 - 35.2 g/dL [facility] MCV (RBC) [Entitic vol] 90 fL 81.0 - 99.0 fL [facility] MONOCYTES ABSOLUTE AUTO 0.4 N [facility] Monocytes/100 WBC (Bld) 4.6 % 1.7 - 12.0 % [facility] NEUTROPHILS ABSOLUTE AUTO 6.8 High [facility] Neutrophils/100 WBC (Bld) 73.7 % 43.0 - 75. 0 % [facility] Platelet mean volume (Bld) [Entitic vol] 11.3 fL 9.5 - 13.5 fL [facility] TBH EO # 0.1 [facility] PLT 142 Low [facility] RBC 4.32 [facility] WBC 9.2 [facility] Urinalysis macro (dipstick) panel (U)on 11-09-2024 Bilirubin, UA Negative Negative - 4(70) +++ mg/dL [facility] Blood, UA Negative Negative - 50 Jose/mcL [facility] Clarity, UA Clear [facility] Color, UA Yellow [facility] Glucose, UA Negative Negative - 1999(110) ++++ mg/dL [facility] Interpretation and review of laboratory results Normal [facility] Ketones, UA Negative Negative - 160(16) ++++ mg/dL [facility] Leukocytes, UA Negative Negative - 500+++ Onel/mcL [facility] Nitrite, UA Negative Negative - Positive [facility] pH, UA 5.5 5 - 9 [facility] Protein, UA Negative Negative - 1999(20) ++++ mg/dL [facility] Spec Grav, UA 1.025 1 - 1.03 [facility] Urobilinogen, UA 1.0 0.2 - 12 mg/dL [facility] Urinalysis macro (dipstick) panel (U)on 10-17-2024 Bilirubin, UA Negative Negative - 4(70) +++ mg/dL [facility] Blood, UA Negative Negative - 50 Jose/mcL [facility] Clarity, UA Clear [facility] Color, UA Yellow [facility] Glucose, UA Negative Negative - 1999(110) ++++ mg/dL [facility] Interpretation and review of laboratory results Abnormal [facility] Ketones, UA Negative Negative - 160(16) ++++ mg/dL [facility] Leukocytes, UA Positive Negative - 500+++ Onel/mcL [facility] Comment on above: small Nitrite, UA Negative Negative - Positive [facility] pH, UA 7 5 - 9 [facility] Protein, UA Negative Negative - 1999(20) ++++ mg/dL [facility] Spec Grav, UA 1.015 1 - 1.03 [facility] Urobilinogen, UA 0.2 0.2 - 12 mg/dL [facility] ALL CBC WITH AUTO DIFFon BASOPHILS ABSOLUTE AUTO 0 N [facility] Basophils/100 WBC (Bld) 0.2 % 0.2 - 2.0 % [facility] Eosinophils/100 WBC (Bld) 3.2 % 0.9 - 7.0 % [facility] Erythrocyte distribution width (RBC) [Ratio] 12.5 % 11.0 - 15.0 % [facility] Hematocrit (Bld) [Volume fraction] 37.9 % 36.0 - 48.0 % [facility] Hemoglobin (Bld) [Mass/Vol] 13.2 g/dL 12.0 - 16.0 g/dL [facility] IMMATURE GRANULOCYTES ABS AUTO 0.14 High [facility] Immature granulocytes/100 WBC (Bld) 1.5 % High 0.0 - 0.5 % [facility] Interpretation and review of laboratory results Abnormal [facility] LYMPHOCYTES ABSOLUTE AUTO 2 [facility] Lymphocytes/100 WBC (Bld) 20.8 % 20.5 - 60. 0 % [facility] MCH (RBC) [Entitic mass] 30.9 pg 26. 7 - 34.0 pg [facility] MCHC (RBC) [Mass/Vol] 34.8 g/dL 29.9 - 35.2 g/dL [facility] MCV (RBC) [Entitic vol] 88.8 fL 81.0 - 99.0 fL [facility]TES [facility] Monocytes/100 WBC (Bld) 7.2 % 1.7 - 12.0 % [facility] NEUTROPHILS ABSOLUTE AUTO 6.3 [facility] Neutrophils/100 WBC (Bld) 67.1 % 43.0 - 75. 0 % [facility] Platelet mean volume (Bld) [Entitic vol] 11.1 fL 9.5 - 13.5 fL [facility] TB EO # 0.3 [facility] TB PLT 153 [facility] RBC 4.27 [facility] WBC 9.4 [facility] US OB DETAIL ANATOMYon 10-07-2024 US [...] GA 19 w + 2 d Assigned BROKOE: 03/01/2025 Impression ========= A targeted anatomic survey [...] EFW (oz) 12 oz EFW by: Hadlock (TBF-AP-EF-FL) Extended Pipeliner 6.0 mm CM 4.4 mm 36% Nicolaides [...] Normal LVOT view: Normal 3-vessel view: Normal 5-gyvksb-bpjgxkd view: Normal Heart / Thorax Situs: situs [...] Normal L (more content not included)... Normal [facility] US for pregnancyon 5 Interpreted by: [...] EFW (oz) 12 oz EFW by: Hadlock (ULI-UO-HG-FL) Extended Pipeliner 6.0 mm CM 4.4 mm 36% Nicolaides [...] Normal LVOT view: Normal 3-vessel view: Normal 2-phxovg-pobpdtg view: Normal Heart / Thorax Situs: situs [...] [employer]isted [employer]ductive [employer] History ====== General History Zbyclb168 cm Height (ft)5 ft Height (in)3 in Previous Outcomes Gravida1 Para0 Maternal Assessment Bccvtv588 cm Height (ft)5 ft Height (in)3 in Dsxdjl55 kg Weight (lb)165 lb Weight gain0 kg [...] 87% Hadlock Femur32.4 mm20w 1d 73% Hadlock Xjblkcl13.4 mm 45% Chitty HC / AC1.05 2% Hadlock PSI046 g20w 1d 91% Hadlock EFW (lb)0 lb EFW (oz)12 oz EFW by:Hadlock (XQH-BZ-IQ-FL) Extended Vp6.0 mm CM4.4 mm 36% Nicolaides Nasal bone4.7 mm Head / Face / Neck Cephalic index0.74 10% Nicolaides Nasal bone:present Extremities / Bony Struc FL / BPD0.74 92% Hadlock FL / HC0.20 96% Hadlock FL / AC0.21 35% Hadlock Other Structures PUE524 bpm Anatomy Cranium:Normal Lateral ventricles:Normal Choroid plexus:Normal [...] view:Normal RVOT view:Normal LVOT view:Normal 3-vessel view:Normal 6-xdbezj-whadcsc view:Normal Heart / Thorax Situs:situs solitus (normal) [...] Lt lower leg:Normal (more content not included)... [facility] Work Phone: Source Facility: [facility] Interpreted by: Ad Ovalle Indication ======== Screening [...] EFW (oz) 12 oz EFW by: Hadlock (SAT-UK-SL-FL) Extended Pipeliner 6.0 mm CM 4.4 mm 36% Nicolaides [...] Normal LVOT view: Normal 3-vessel view: Normal 6-bbbyxf-nymdtda view: Normal Heart / Thorax Situs: situs [...] included)... Radiology, Radiologist, - 10/07/2024 Source Facility: [facility] Interpreted by: Ad Ovalle Indication ======== Screening [...] EFW (oz) 12 oz EFW by: Hadlock (IDY-MD-TO-FL) Extended Pipeliner 6.0 mm CM 4.4 mm 36% Nicolaides [...] Normal LVOT view: Normal 3-vessel view: Normal 5-jssgqz-fflakid view: Normal Heart / Thorax Situs: situs [...] Normal Lt forear (more content not included)... [facility] Radiology Study observation (narrative) [facility] Work Phone: Radiology Study observation (narrative) [facility] US for pregnancyOrdered By: Ad Ovalle on 10-07-2024 [facility] Work Phone: US for pregnancyOrdered By: Radiologist Radiology on 10-07-2024 [facility] Work Phone: RECURRENT VAGINITIS (HTRX)on 09-07-2024 ATOPOBIUM VAGINAE 0 [facility] ATOPOBIUM VAGINAE Not detected [facility] BVAB 2,3 (BACTERIAL VAGINOSIS ASSOCIATED BACTERIA 2, 3); MOBILUNCUS SPP 0 [facility] BVAB 2,3 (BACTERIAL VAGINOSIS ASSOCIATED BACTERIA 2, 3); MOBILUNCUS SPP Not detected [facility] PRESTON ALBICANS, PARAPSILOSIS, TROPICALIS 0 [facility] PRESTON ALBICANS, PARAPSILOSIS, TROPICALIS Not detected [facility] GLABRATA 0 [facility] PRESTON GLABRATA Not detected [facility] PRESTON KRUSEI 0 [facility] PRESTON KRUSEI Not detected [facility] CHLAMYDIA TRACHOMATIS 0 [facility] CHLAMYDIA TRACHOMATIS Not detected [facility] GARDNERELLA VAGINALIS 0 [facility] GARDNERELLA VAGINALIS Not detected [facility] MEGASPHAERA (TYPES 1, 2) 0 [facility] MEGASPHAERA (TYPES 1, 2) Not detected [facility] MYCOPLASMA GENITALIUM 0 [facility] MYCOPLASMA GENITALIUM Not detected N [facility] NEISSERIA GONORRHOEAE 0 [facility] NEISSERIA GONORRHOEAE Not detected N [facility] TRICHOMONAS VAGINALIS 0 [facility] TRICHOMONAS VAGINALIS Not detected N [facility] Urinalysis macro (dipstick) panel (U)on 09-06-2024 Bilirubin, UA Negative Negative - 4(70) +++ mg/dL [facility] Blood, UA Negative Negative - 50 Jose/mcL [facility] Clarity, UA Clear [facility] Color, UA Yellow [facility] Glucose, UA Negative Negative - 1999(110) ++++ mg/dL [facility] Interpretation and review of laboratory results Abnormal [facility] Ketones, UA Negative Negative - 160(16) ++++ mg/dL [facility] Leukocytes, UA Positive Negative - 500+++ Onel/mcL [facility] Comment on above: small Nitrite, UA Negative Negative - Positive [facility] pH, UA 6 5 - 9 [facility] Protein, UA Negative Negative - 1999(20) ++++ mg/dL [facility] Spec Grav, UA 1.03 1 - 1.03 [facility] Urobilinogen, UA 0.2 0.2 - 12 mg/dL [facility] ALL CBC WITH AUTO DIFFon BASOPHILS ABSOLUTE AUTO 0 N [facility] Basophils/100 WBC (Bld) 0.2 % 0.2 - 2.0 % [facility] Eosinophils/100 WBC (Bld) 2.9 % 0.9 - 7.0 % [facility] Erythrocyte distribution width (RBC) [Ratio] 12 % 11.0 - 15.0 % [facility] Hematocrit (Bld) [Volume fraction] 39.3 % 36.0 - 48.0 % [facility] Hemoglobin (Bld) [Mass/Vol] 13.6 g/dL 12.0 - 16.0 g/dL [facility] IMMATURE GRANULOCYTES ABS AUTO 0.06 High [facility] Immature granulocytes/100 WBC (Bld) 0.7 % High 0.0 - 0.5 % [facility] Interpretation and review of laboratory results Abnormal [facility] LYMPHOCYTES ABSOLUTE AUTO 2.1 [facility] Lymphocytes/100 WBC (Bld) 25.4 % 20.5 - 60. 0 % [facility] MCH (RBC) [Entitic mass] 30.2 pg 26. 7 - 34.0 pg [facility] MCHC (RBC) [Mass/Vol] 34.6 g/dL 29.9 - 35.2 g/dL [facility] MCV (RBC) [Entitic vol] 87.3 fL 81.0 - 99.0 fL [facility] MONOCYTES ABSOLUTE AUTO 0.5 [facility] Monocytes/100 WBC (Bld) 5.8 % 1.7 - 12.0 % [facility] NEUTROPHILS ABSOLUTE AUTO 5.5 [facility] Neutrophils/100 WBC (Bld) 65 % 43.0 - 75. 0 % [facility] Platelet mean volume (Bld) [Entitic vol] 10.9 fL 9.5 - 13.5 fL [facility] TBH EO # 0.2 [facility] PLT 151 [facility] RBC 4.5 [facility] TB WBC 8.4 [facility] Urinalysis macro (dipstick) panel (U)on 08-08-2024 Bilirubin, UA Negative Negative - 4(70) +++ mg/dL [facility] Blood, UA Negative Negative - 50 Jose/mcL [facility] Clarity, UA Clear [facility] Color, UA Yellow [facility] Glucose, UA Negative Negative - 1999(110) ++++ mg/dL [facility] Interpretation and review of laboratory results Abnormal [facility] Ketones, UA Negative Negative - 160(16) ++++ mg/dL [facility] Leukocytes, UA Positive Negative - 500+++ Onel/mcL [facility] Comment on above: small Nitrite, UA Negative Negative - Positive [facility] pH, UA 6 5 - 9 [facility] Protein, UA Negative Negative - 1999(20) ++++ mg/dL [facility] Spec Grav, UA 1.025 1 - 1.03 [facility] Urobilinogen, UA 0.2 0.2 - 12 mg/dL [facility] HCG ( test) Ql (U)o n 07-29-2024 Interpretation and review of laboratory results Abnormal [facility] Preg Test, Ur Positive Negative [facility] Urinalysis macro (dipstick) panel (U)on 07-29-2024 Bilirubin, UA Negative Negative - 4(70) +++ mg/dL [facility] Blood, UA Positive Negative - 50 Jose/mcL [facility] Comment on above: trace Clarity, UA Clear [facility] Color, UA Yellow [facility] Glucose, UA Negative Negative - 1999(110) ++++ mg/dL [facility] Interpretation and review of laboratory results Abnormal [facility] Ketones, UA Negative Negative - 160(16) ++++ mg/dL [facility] Leukocytes, UA Positive Negative - 500+++ Onel/mcL [facility] Comment on above: small Nitrite, UA Negative Negative - Positive [facility] pH, UA 5.5 5 - 9 [facility] Protein, UA Negative Negative - 1999(20) ++++ mg/dL [facility] Spec Grav, UA 1.03 1 - 1.03 [facility] Urobilinogen, UA 0.2 0.2 - 12 mg/dL [facility] PROGESTERONEon 07-12-2024 PROGESTERONE 53.5 ng/mL Normal [facility] Comment on above: Result Comment: Refe rence Ranges Female Follicular Phase < 1.0 Luteal Phase 2.6-21.5 Post menopausal < 0.5 1st Trimester 4.1-34.0 2nd Trimester 24.0-76.0 3rd Trimester 52.0-302.0 Performed By: #### 7 45 #### [facility] [address], [address] [place] [phone] [employer] Associate: Alexey Boogie MD US OB TRANSVAGINALon 025 [...] evaluation for early dating. View: Sufficient Normal [facility] Choriogonadotropin.beta subu niton 06-30-2024 HCG.beta subunit Qn 6575 m[IU]/mL High <5 [facility] Comment on above: Order Comment: Total HCG measurement is performed using the [employer] Access Immunoassay which detects intact HCG and free beta HCG subunit. This test is not indicated for use as a tumor marker. HCG testing is performed using a different test methodology at [facility] than other [facility]. Direct result [...] By: #### 2 1198-7 #### JOSEPH ESQUIVEL ([id number]) [facility] ([facility]) [address] [place] [address] Choriogonadotropin.beta subu niton 06-23-2024 HCG.beta subunit Qn 330 m[IU]/mL High <5 [facility] Comment on above: Order Comment: Total HCG measurement is performed using the [employer] Access Immunoassay which detects intact HCG and free beta HCG subunit. This test is not indicated for use as a tumor marker. HCG testing is performed using a different test methodology at [facility] than other [facility]. Direct result [...] By: #### 2 1198-7 #### JOSEPH ESQUIVEL ([id number]) [facility] ([facility]) [id number] [place] [address] Estradiolon 06-23-2024 E2 [Mass/Vol] 378 pg/mL Normal [facility] Comment on above: Order Comment: REF V ALUES FOLLICULAR PHASE 20-144 MID CYCLE 64-357 LUTEAL PHASE 56-214 POSTMENOPAUSE < 32 PREPUBERTY < 20 FEMALE 10-18Y 8-110 MALE 10-18Y < 20 ADULT MALE < 40 Estradiol measurement is performed using the [employer] Access Estradiol Immunoassay. Estradiol testing is performed using a different test methodology at [facility] than other [facility]. Direct result comparison should only be made within the same method. Performed By: #### 2 243-4 #### JOSEPH ESQUIVEL ([id number]) [facility] ([facility]) [address] [place] [address] Progesteroneon 06-23-2024 Progesterone [Mass/Vol] 42.6 ng/mL Normal [facility] Comment on above: Order Comment: REF V ALUES Male <0.2-0.8 Follicular Phase <0.2-1.5 Luteal Phase 7.4-15.4 Post Menopausal <0.2-0.2 1ST Trimester 12.0-84.0 2ND Trimester 10.2-58.8 3RD Trimester 46.5-160 Progesterone is performed using the [employer] Access Immunoassay. Progesterone testing is performed using a different test methodology at [facility] than other [facility]. Direct result comparison should only be made within the same method. Performed By: #### 2 839-9 #### JOSEPH ESQUIVEL ([id number]) [facility] ([facility]) [address] [place] [address] No Panel Informationon 06-13 Juan Chavarria MD [...] Preop diagnosis: Infertility Post op diagnosis: Same Gas Welder: none Depth: 7 cm Curve: anterior Distance [...] Chavarria 06/13/24 11:24 AM [facility] Work Phone: Progesteroneon 06-13-2024 Progesterone [Mass/Vol] 45.0 ng/mL Normal [facility] Comment on above: Order Comment: REF V ALUES Male <0.2-0.8 Follicular Phase <0.2-1.5 Luteal Phase 7.4-15.4 Post Menopausal <0.2-0.2 1ST Trimester 12.0-84.0 2ND Trimester 10.2-58.8 3RD Trimester 46.5-160 Progesterone is performed using the [employer] Access Immunoassay. Progesterone testing is performed using a different test methodology at [facility] than other [facility]. Direct result comparison should only be made within the same method. Performed By: #### 2 839-9 #### ORA MOHAN ([id number]) [facility] ([facility]) [address] [place] [address] Estradiolon 06-07-2024 E2 [Mass/Vol] 2870 pg/mL Normal [facility] Comment on above: Order Comment: REF V ALUES FOLLICULAR PHASE 20-144 MID CYCLE 64-357 LUTEAL PHASE 56-214 POSTMENOPAUSE < 32 PREPUBERTY < 20 FEMALE 10-18Y 8-110 MALE 10-18Y < 20 ADULT MALE < 40 Performed By: #### 2 243-4 #### JOSEPH ESQUIVEL ([id number]) [facility] ([facility]) [address] [place] [address] Progesteroneon 06-07-2024 Progesterone [Mass/Vol] 0.4 ng/mL Normal [facility] Comment on above: Order Comment: REF V ALUES Male <0.2-0.8 Follicular Phase <0.2-1.5 Luteal Phase 7.4-15.4 Post Menopausal <0.2-0.2 1ST Trimester 12.0-84.0 2ND Trimester 10.2-58.8 3RD Trimester 46.5-160 Progesterone is performed using the [employer] Access Immunoassay. Progesterone testing is performed using a different test methodology at [facility] than other [facility]. Direct result [...] results near 1.0 ng/mL. Contact laboratory at [phone] if alternative testing is needed. Performed By: #### 2 839-9 #### JOSEPH ESQUIVEL ([id number]) [facility] ([facility]) [address] [place] [address] [facility] US PELVIS LIMITED FOLLIC LES-FOLLICLE STUDIES PERFORMEDon 06-07-2024 [facility] US PELVIS LIMITED FOLLICLES-FOLLICLE STUDIES PERFORMED Follicle scan performed with follicle measurements in report. and Trilaminar appearance to the endometrium is noted. Normal [facility] Estradiolon 06-06-2024 E2 [Mass/Vol] 558 pg/mL Normal [facility] Comment on above: Order Comment: REF V ALUES FOLLICULAR PHASE 20-144 MID CYCLE 64-357 LUTEAL PHASE 56-214 POSTMENOPAUSE < 32 PREPUBERTY < 20 FEMALE 10-18Y 8-110 MALE 10-18Y < 20 ADULT MALE < 40 Performed By: #### 2 243-4 #### JOSEPH ESQUIVEL ([id number]) [facility] ([facility]) [address] [place] [address] Follicle Diameter USon 06-06 Trilaminar appearance to the endometrium is noted. RIS SECTRA ONLY [facility] Work Phone: Radiology Study observation (narrative) [facility] Work Phone: Progesteroneon 06-06-2024 Progesterone [Mass/Vol] 0.8 ng/mL Normal [facility] Comment on above: Order Comment: REF V ALUES Male <0.2-0.8 Follicular Phase <0.2-1.5 Luteal Phase 7.4-15.4 Post Menopausal <0.2-0.2 1ST Trimester 12.0-84.0 2ND Trimester 10.2-58.8 3RD Trimester 46.5-160 Progesterone is performed using the [employer] Access Immunoassay. Progesterone testing is performed using a different test methodology at [facility] than other system hospitals. Direct result comparison [...] results near 1.0 ng/mL. Contact laboratory at [phone] if alternative testing is needed. Performed By: #### 2 839-9 #### JOSEPH ESQUIVEL ([id number]) [facility] ([facility]) [address] [place] [address] [facility] US ENDOMETRIAL LINING CH ECKon 06-06-2024 [facility] US ENDOMETRIAL LINING CHECK Trilaminar appearance to the endometrium is noted. [facility] No Panel Informationon 03-22 Juan Chavarria MD 03/22/2024 9:44 AM Egg Retrieval Date/Time: 03/22/2024 9:39 AM Performed by: Juan Chavarria MD Authorized by: Donya Abernathy APRN-MEDICAL ASSISTING PROGRAM DIRECTOR Consent: Consent obtained: Verbal and written Consent [...] diagnosis: Female infertility Post op diagnosis: Same Gas Welder: Dr. Warren IV Fluids: 600 cc EBL: 5 cc UOP: Not recorded Specimen: Oocytes Complications: None Number of Oocytes right ovary: 16 Ovarian access (right): Easy Number of Oocytes left ovary: 9 Ovarian access (left): Easy Endometrial thickness: n/a Needle type: Single Additional notes: [facility] RIS [facility] Work Phone: Lutropinon 03-21-2024 Lutropin Qn 29.3 IU/L Normal [facility] Comment on above: Result Comment: LH R eference Values Follicular Phase 1.5-10.0 Mid-Cycle 13.0-72.0 Luteal Phase 0.5-13.0 Menopause 15.0-65.0 Pre-puberty 0- 3.0 Children 0- 6.0 Adult Male 1.0- 9.0 Luteinizing Hormone is performed using the [employer] Access Immunoassay. LH testing is performed using a different test methodology at [facility] than other [facility]. Direct result comparison should only be made within the same method. Performed By: #### 4 7236-5 #### SHAI Pickard ([id number]) [facility] [facility] [address] [place] [address] 22970 Progesteroneon 03-21-2024 Progesterone [Mass/Vol] 4.5 ng/mL Normal [facility] Comment on above: Order Comment: HIV A g/Ab screen is performed using the Siemens Omnidrive HIV Ag/Ab Combo assay which detects the presence of HIV p24 antigen as well as antibodies to HIV-1 (Group M and O) and HIV-2. No laboratory evidence of HIV infection. If acute HIV infection is suspected, consider testing for HIV RNA by PCR (viral load). Performed By: #### 5 6888-1 #### SHAI Pickard ([id number]) [facility] ([facility]) [address] [place] [address] 39476 E2 [Mass/Vol]Ordered By: Shira Rich on 03-20-2024 REF VALUES FOLLICULAR PHASE 20-144 MID CYCLE 64-357 LUTEAL PHASE 56-214 POSTMENOPAUSE < 32 PREPUBERTY < 20 FEMALE 10-18Y 8-110 MALE 10-18Y < 20 ADULT MALE < 40 Estradiol measurement is performed using the [employer] Access Estradiol Immunoassay. Estradiol testing is performed using a different test methodology at [facility] than other [facility]. Direct result comparison should only be made within the same method. [facility] EstradiolOrdered By: Bela Rich on 03-20-2024 E2 [Mass/Vol] 4909 pg/mL [facility] Estradiolon 03-20-2024 E2 [Mass/Vol] 4909 pg/mL Normal [facility] Comment on above: Order Comment: [...] By: #### 5 6888-1 #### SHAI Pickard ([id number]) [facility] ([facility]) [address] [place] [address] 27553 Follicle Diameter USon 03-20 Follicle scan performed with follicle measurements in report. RIS SECTRA ONLY [facility] Work Phone: Radiology Study observation (narrative) [facility] Work Phone: Progesteroneon 03-20-2024 Progesterone [Mass/Vol] 1.3 ng/mL U [facility] Progesterone [Mass/Vol] 1.3 ng/mL Normal U [facility] Comment on above: Order [...] By: #### 5 6888-1 #### SHAI Pickard ([id number]) [facility] ([facility]) [address] [place] [address] 32911 Progesterone [Mass/Vol]on REF VALUES Male <0.2-0.8 Follicular Phase <0.2-1.5 Luteal Phase 7.4-15.4 Post Menopausal <0.2-0.2 1ST Trimester 12.0-84.0 2ND Trimester 10.2-58.8 3RD Trimester 46.5-160 Progesterone is performed using the [employer] Access Immunoassay. Progesterone testing is performed using a different test methodology at [facility] than other [facility]. Direct result comparison should only be made within the same method. [facility] KELSY US PELVIS LIMITED FOLLIC LES-FOLLICLE STUDIES PERFORMEDon 03-20-2024 KELSY US PELVIS LIMITED FOLLICLES-FOLLICLE STUDIES PERFORMED Follicle scan performed with follicle measurements in report. Normal [facility] Estradiolon 03-19-2024 E2 [Mass/Vol] 3760 pg/mL Normal [facility] Comment on above: Order Comment: [...] By: #### 5 6888-1 #### SHAI Pickard ([id number]) [facility] ([facility]) [address] [place], [place] [id number] Follicle Diameter USon 03-19 Follicle scan performed with follicle measurements in report. RIS SECTRA ONLY [facility] Work Phone: Radiology Study observation (narrative) [facility] Work Phone: Progesteroneon 03-19-2024 Progesterone [Mass/Vol] 1.1 ng/mL Normal [facility] Comment on above: Order Comment: HIV A g/Ab screen is performed using the Siemens AtellTempMine HIV Ag/Ab Combo assay which detects the presence of HIV p24 antigen as well as antibodies to HIV-1 (Group M and O) and HIV-2. No laboratory evidence of HIV infection. If acute HIV infection is suspected, consider testing for HIV RNA by PCR (viral load). Performed By: #### 5 6888-1 #### SHAI Pickard ([id number]) [facility] ([facility]) [address] [place] [address]21 KELSY US PELVIS LIMITED FOLLIC LES-FOLLICLE STUDIES PERFORMEDon 03-19-2024 KELSY US PELVIS LIMITED FOLLICLES-FOLLICLE STUDIES PERFORMED Follicle scan performed with follicle measurements in report. Normal [facility] E2 [Mass/Vol]on 03-17-2024 REF VALUES FOLLICULAR PHASE 20-144 MID CYCLE 64-357 LUTEAL PHASE 56-214 POSTMENOPAUSE < 32 PREPUBERTY < 20 FEMALE 10-18Y 8-110 MALE 10-18Y < 20 ADULT MALE < 40 Estradiol measurement is performed using the [employer] Access Estradiol Immunoassay. Estradiol testing is performed using a different test methodology at [facility] than other [facility]. Direct result comparison should only be made within the same method. [facility] Estradiolon 03-17-2024 E2 [Mass/Vol] 1462 pg/mL [facility] E2 [Mass/Vol] 1462 pg/mL Normal [facility] Comment on above: Order Comment: [...] By: #### 5 6888-1 #### SHAI Pickard ([id number]) [facility] ([facility]) [address] [place] [address] Follicle Diameter USon 03-17 Follicle scan performed with follicle measurements in report. Trilaminar appearance to the endometrium is noted. Physiologic free fluid is noted in the cul de sac. Notably retroverted uterus. Two small complex ovarian cysts noted, one on the left and one on the right. RIS SECTRA ONLY Radiology Study observation (narrative) [facility] Work Phone: Follicle Diameter USOrdered By: Leigh Ann Tuttle on 03-17-2024 [facility] Work Phone: Progesteroneon 03-17-2024 Progesterone [Mass/Vol] 0.6 ng/mL Normal [facility] Comment on above: Order Comment: HIV A g/Ab screen is performed using the Siemens AtellTempMine HIV Ag/Ab Combo assay which detects the presence of HIV p24 antigen as well as antibodies to HIV-1 (Group M and O) and HIV-2. No laboratory evidence of HIV infection. If acute HIV infection is suspected, consider testing for HIV RNA by PCR (viral load). Performed By: #### 5 6888-1 #### SHAI Pickard ([id number]) [facility] ([facility]) [id number] [place] [address]1983 KELSY US PELVIS LIMITED FOLLIC LES-FOLLICLE STUDIES PERFORMEDon 03-17-2024 KELSY US PELVIS LIMITED FOLLICLES-FOLLICLE STUDIES PERFORMED Follicle scan performed with follicle measurements in report. Trilaminar appearance to the endometrium is noted. Physiologic free fluid is noted in the cul de sac. Notably retroverted uterus. Two small complex ovarian cysts noted, one on the left and one on the right. Normal [facility] E2 [Mass/Vol]on 03-15-2024 REF VALUES FOLLICULAR PHASE 20-144 MID CYCLE 64-357 LUTEAL PHASE 56-214 POSTMENOPAUSE < 32 PREPUBERTY < 20 FEMALE 10-18Y 8-110 MALE 10-18Y < 20 ADULT MALE < 40 Estradiol measurement is performed using the [employer] Access Estradiol Immunoassay. Estradiol testing is performed using a different test methodology at [facility] than other [facility]. Direct result comparison should only be made within the same method. [facility] Estradiolon 03-15-2024 E2 [Mass/Vol] 721 pg/mL [facility] E2 [Mass/Vol] 721 pg/mL Normal [facility] Comment on above: Order Comment: REF V ALUESFOLLICULAR PHASE 20-144MID CYCLE 64-357LUTEAL PHASE 56-214POSTMENOPAUSE < 32PREPUBERTY < 20FEMALE 10-18Y 8-110MALE 10-18Y < 20ADULT MALE < 40Estradiol measurement is performed using the [employer] Access Estradiol Immunoassay. Estradiol testing is performed using a different test methodology at [facility] than other [facility]. Direct resultcomparison should only be made within the same method. Performed By: #### 1 6128-1 #### SHAI Pickard ([id number]) [facility] ([facility]) [address] [place] [address] Follicle Diameter USon 03-15 Follicle scan performed with follicle measurements in report., Trilaminar appearance to the endometrium is noted., and Free fluid is noted in the cul de sac. RIS SECTRA ONLY [facility] Work Phone: Radiology Study observation (narrative) [facility] Work Phone: KELSY US PELVIS LIMITED FOLLIC LES-FOLLICLE STUDIES PERFORMEDon 03-15-2024 KELSY US PELVIS LIMITED FOLLICLES-FOLLICLE STUDIES PERFORMED Follicle scan performed with follicle measurements in report., Trilaminar appearance to the endometrium is noted., and Free fluid is noted in the cul de sac. Normal [facility] E2 [Mass/Vol]on 03-09-2024 REF VALUES FOLLICULAR PHASE 20-144 MID CYCLE 64-357 LUTEAL PHASE 56-214 POSTMENOPAUSE < 32 PREPUBERTY < 20 FEMALE 10-18Y 8-110 MALE 10-18Y < 20 ADULT MALE < 40 Estradiol measurement is performed using the [employer] Access Estradiol Immunoassay. Estradiol testing is performed using a different test methodology at [facility] than other [facility]. Direct result comparison should only be made within the same method. [facility] Estradiolon 03-09-2024 E2 [Mass/Vol] pg/mL pg/mL [facility] E2 [Mass/Vol] pg/mL Normal [facility] Comment on above: Order Comment: REF V ALUESFOLLICULAR PHASE 20-144MID CYCLE 64-357LUTEAL PHASE 56-214POSTMENOPAUSE < 32PREPUBERTY < 20FEMALE 10-18Y 8-110MALE 10-18Y < 20ADULT MALE < 40Estradiol measurement is performed using the [employer] Access Estradiol Immunoassay. Estradiol testing is performed using a different test methodology at [facility] than other [facility]. Direct resultcomparison should only be made within the same method. Performed By: #### 1 6128-1 #### SHAI Pickard ([id number]) [facility] ([facility]) [address] [place] [address] 78307 Follicle Diameter USon 03-09 Follicle scan performed with follicle measurements in report., Trilaminar appearance to the endometrium is noted., and Free fluid is noted in the cul de sac. RIS SECTRA ONLY Radiology Study observation (narrative) [facility] Work Phone: Follicle Diameter USOrdered By: Alicia Morgan on 03-09-2024 [facility] Work Phone: Hematocrit Auto (Bld) [Volum e fraction]on 03-09-2024 Hematocrit (Bld) [Volume fraction] 43.2 % 36.0 - 46.0 % [facility] Interpretation and review of laboratory results Normal [facility] Hematocrit (Bld) [Volume fraction] 43.2 % Normal 36.0-46.0 [facility] Comment on above: Performed By: #### 1 6128-1 #### SHAI Pickard ([id number]) [facility] ([facility]) [address] [place] [address] KELSY US PELVIS LIMITED FOLLIC LES-FOLLICLE STUDIES PERFORMEDon 03-09-2024 KELSY US PELVIS LIMITED FOLLICLES-FOLLICLE STUDIES PERFORMED Follicle scan performed with follicle measurements in report., Trilaminar appearance to the endometrium is noted., and Free fluid is noted in the cul de sac. 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 IV Fluids: 500 cc EBL: 5 cc UOP: Not recorded Specimen: Oocytes Complications: None Number of Oocytes right ovary: 17 Ovarian acc ss (right): Easy Number of Oocytes left ovary: 13 Ovarian access (left): Easy Endometrial thickness: n/a Needle type: Single Additional notes: KELSY LAB RIS [facility] Work Phone: Lutropinon 02-22-2024 Lutropin Qn 35.3 IU/L Normal [facility] Comment on above: Result Comment: LH R eference Values Follicular Phase 1.5-10.0 Mid-Cycle 13.0-72.0 Luteal Phase 0.5-13.0 Menopause 15.0-65.0 Pre-puberty 0- 3.0 Children 0- 6.0 Adult Male 1.0- 9.0 Luteinizing Hormone is performed using the [employer] Access Immunoassay. LH testing is performed using a different test methodology at [facility] than other [facility]. Direct result comparison should only be made within the same method. Performed By: #### 1 6128-1 #### SHAI Pickard ([id number]) [facility] ([facility]) [address] [place] [address] 84145 Progesteroneon 02-22-2024 Progesterone [Mass/Vol] 5.0 ng/mL Normal [facility] Comment on above: Order Comment: REF V ALUESMale <0.2-0.8Follicular Phase <0.2-1.5Luteal Phase 7.4-15.4Post Menopausal <0.2-0.21ST Trimester 12.0-84.02ND Trimester 10.2-58.83RD Trimester 46.5-160Progesterone is performed using the [employer] Access Immunoassay.Progesterone testing is performed using a different test methodology at [facility] than other [facility]. Direct result comparison should only be made within the same method. Performed By: #### 1 6128-1 #### SHAI Pickard ([id number]) [facility] ([facility]) [address] [place] [address] 20089 E2 [Mass/Vol]Ordered By: Christi Infante on 02-21-2024 REF VALUES FOLLICULAR PHASE 20-144 MID CYCLE 64-357 LUTEAL PHASE 56-214 POSTMENOPAUSE < 32 PREPUBERTY < 20 FEMALE 10-18Y 8-110 MALE 10-18Y < 20 ADULT MALE < 40 Estradiol measurement is performed using the [employer] Access Estradiol Immunoassay. Estradiol testing is performed using a different test methodology at [facility] than other [facility]. Direct result comparison should only be made within the same method. [facility] EstradiolOrdered By: Janet Ritchie on 02-21-2024 E2 [Mass/Vol] 5153 pg/mL [facility] Estradiolon 02-21-2024 E2 [Mass/Vol] 5153 pg/mL Normal [facility] Comment on above: Order Comment: REF V ALUESFOLLICULAR PHASE 20-144MID CYCLE 64-357LUTEAL PHASE 56-214POSTMENOPAUSE < 32PREPUBERTY < 20FEMALE 10-18Y 8-110MALE 10-18Y < 20ADULT MALE < 40Estradiol measurement is performed using the [employer] Access Estradiol Immunoassay. Estradiol testing is performed using a different test methodology at [facility] than other [facility]. Direct resultcomparison should only be made within the same method. Performed By: #### 1 6128-1 #### SHAI Pickard ([id number]) [facility] ([facility]) [address] [place] [address] Follicle Diameter USon 02-20 Follicle scan performed with follicle measurements in report. RIS SECTRA ONLY Radiology Study observation (narrative) [facility] Work Phone: Follicle Diameter USOrdered By: Juan Chavarria on 02-21-2024 [facility] Work Phone: Luteinizing Hormone (LH)on Lutropin Qn 0.9 m[IU]/mL IU/L [facility] Comment on above: LH Reference Values Follicular Phase 1.5-10.0 Mid-Cycle 13.0-72.0 Luteal Phase 0.5-13.0 Menopause 15.0-65.0 Pre-puberty 0- 3.0 Children 0- 6.0 Adult Male 1.0- 9.0 Luteinizing Hormone is performed using the [employer] Magnolia Access Immunoassay. LH testing is performed using a different test methodology at [facility] than other [facility]. Direct result comparison should only be made within the same method. Lutropinon 02-21-2024 Lutropin Qn 0.9 IU/L Normal [facility] Comment on above: Result Comment: LH R eference Values Follicular Phase 1.5-10.0 Mid-Cycle 13.0-72.0 Luteal Phase 0.5-13.0 Menopause 15.0-65.0 Pre-puberty 0- 3.0 Children 0- 6.0 Adult Male 1.0- 9.0 Luteinizing Hormone is performed using the [employer] Magn[employer] Access Immunoassay. LH testing is performed using a different test methodology at [facility] than [facility]. Direct result comparison should only be made within the same method. Performed By: #### 1 6128-1 #### SHAI Pickard ([id number]) [facility] ([facility]) [address] [place] [address] 05439 Lutropin Qnon 02-21-2024 [facility] Progesteroneon 02-21-2024 Progesterone [Mass/Vol] 1.3 ng/mL U [facility] Progesterone [Mass/Vol] 1.3 ng/mL Normal [facility] Comment on above: Order Comment: REF V ALUESMale <0.2-0.8Follicular Phase <0.2-1.5Luteal Phase 7.4-15.4Post Menopausal <0.2-0.21ST Trimester 12.0-84.02ND Trimester 10.2-58.83RD Trimester 46.5-160Progesterone is performed using the [employer] Access Immunoassay.Progesterone testing is performed using a different test methodology at [facility] than [facility]. Direct result comparison should only be made within the same method. Performed By: #### 5 196-1 #### SHIA Pickard ([id number]) [facility] ([facility]) [address] [place] [address] 27157 Progesterone [Mass/Vol]on REF VALUES Male <0.2-0.8 Follicular Phase <0.2-1.5 Luteal Phase 7.4-15.4 Post Menopausal <0.2-0.2 1ST Trimester 12.0-84.0 2ND Trimester 10.2-58.8 3RD Trimester 46.5-160 Progesterone is performed using the [employer] Access Immunoassay. Progesterone testing is performed using a different test methodology at [facility] than other [facility]. Direct result comparison should only be made within the same method. [facility] KELSY US PELVIS LIMITED FOLLIC LES-FOLLICLE STUDIES PERFORMEDon 02-21-2024 KELSY US PELVIS LIMITED FOLLICLES-FOLLICLE STUDIES PERFORMED Follicle scan performed with follicle measurements in report. Normal [facility] Estradiolon 02-20-2024 E2 [Mass/Vol] 3718 pg/mL Normal [facility] Comment on above: Order Comment: REF V ALUESFOLLICULAR PHASE 20-144MID CYCLE 64-357LUTEAL PHASE 56-214POSTMENOPAUSE < 32PREPUBERTY < 20FEMALE 10-18Y 8-110MALE 10-18Y < 20ADULT MALE < 40Estradiol measurement is performed using the [employer] Access Estradiol Immunoassay. Estradiol testing is performed using a different test methodology at [facility] than other [facility]. Direct resultcomparison should only be made within the same method. Performed By: #### 5 196-1 #### SHAI Pickard ([id number]) [facility] ([facility]) [address] [place] [address] Progesteroneon 02-20-2024 Progesterone [Mass/Vol] 1.4 ng/mL Normal U [facility] Comment on above: Order Comment: REF V ALUESMale <0.2-0.8Follicular Phase <0.2-1.5Luteal Phase 7.4-15.4Post Menopausal <0.2-0.21ST Trimester 12.0-84.02ND Trimester 10.2-58.83RD Trimester 46.5-160Progesterone is performed using the [employer] Access Immunoassay.Progesterone testing is performed using a different test methodology at [facility] than other [facility]. Direct result comparison should only be made within the same method. Performed By: #### 5 196-1 #### SHAI Pickard ([id number]) [facility] ([facility]) [address] [place] [address] KELSY US PELVIS LIMITED FOLLIC LES-FOLLICLE STUDIES PERFORMEDon 02-20-2024 KELSY US PELVIS LIMITED FOLLICLES-FOLLICLE STUDIES PERFORMED Follicle scan performed with follicle measurements in report. Normal [facility] E2 [Mass/Vol]on 02-18-2024 REF VALUES FOLLICULAR PHASE 20-144 MID CYCLE 64-357 LUTEAL PHASE 56-214 POSTMENOPAUSE < 32 PREPUBERTY < 20 FEMALE 10-18Y 8-110 MALE 10-18Y < 20 ADULT MALE < 40 Estradiol measurement is performed using the [employer] Access Estradiol Immunoassay. Estradiol testing is performed using a different test methodology at [facility] than other [facility]. Direct result comparison should only be made within the same method. [facility] Estradiolon 02-18-2024 E2 [Mass/Vol] 1472 pg/mL [facility] E2 [Mass/Vol] 1472 pg/mL Normal [facility] Comment on above: Order Comment: REF V ALUESFOLLICULAR PHASE 20-144MID CYCLE 64-357LUTEAL PHASE 56-214POSTMENOPAUSE < 32PREPUBERTY < 20FEMALE 10-18Y 8-110MALE 10-18Y < 20ADULT MALE < 40Estradiol measurement is performed using the [employer] Access Estradiol Immunoassay. Estradiol testing is performed using a different test methodology at [facility] than other [facility]. Direct resultcomparison should only be made within the same method. Performed By: #### 5 196-1 #### SHAI Pickard ([id number]) [facility] ([facility]) [address] [place] [address] Follicle Diameter USon 02-17 Follicle scan performed with follicle measurements in report. Trilaminar appearance to the endometrium is noted. Free fluid is noted in the right paraovarian space. Notably retroverted uterus. RIS SECTRA ONLY Radiology Study observation (narrative) [facility] Work Phone: Follicle Diameter USOrdered By: Leigh Ann Tuttle on 02-18-2024 [facility] Work Phone: KELSY US PELVIS LIMITED FOLLIC LES-FOLLICLE STUDIES PERFORMEDon 02-18-2024 KELSY US PELVIS LIMITED FOLLICLES-FOLLICLE STUDIES PERFORMED Follicle scan performed with follicle measurements in report. Trilaminar appearance to the endometrium is noted. Free fluid is noted in the right paraovarian space. Notably retroverted uterus. Normal [facility] E2 [Mass/Vol]on 02-16-2024 REF VALUES FOLLICULAR PHASE 20-144 MID CYCLE 64-357 LUTEAL PHASE 56-214 POSTMENOPAUSE < 32 PREPUBERTY < 20 FEMALE 10-18Y 8-110 MALE 10-18Y < 20 ADULT MALE < 40 Estradiol measurement is performed using the [employer] Access Estradiol Immunoassay. Estradiol testing is performed using a different test methodology at [facility] than other [facility]. Direct result comparison should only be made within the same method. [facility] Estradiolon 02-16-2024 E2 [Mass/Vol] 639 pg/mL [facility] E2 [Mass/Vol] 639 pg/mL Normal [facility] Comment on above: Order Comment: REF V ALUESFOLLICULAR PHASE 20-144MID CYCLE 64-357LUTEAL PHASE 56-214POSTMENOPAUSE < 32PREPUBERTY < 20FEMALE 10-18Y 8-110MALE 10-18Y < 20ADULT MALE < 40Estradiol measurement is performed using the [employer] Access Estradiol Immunoassay. Estradiol testing is performed using a different test methodology at [facility] than other [facility]. Direct resultcomparison should only be made within the same method. Performed By: #### 5 196-1 #### SHAI Pickard ([id number]) [facility] ([facility]) [address] [place] [address] KELSY US PELVIS LIMITED FOLLIC LES-FOLLICLE STUDIES PERFORMEDon 02-16-2024 KELSY US PELVIS LIMITED FOLLICLES-FOLLICLE STUDIES PERFORMED Follicle scan performed with follicle measurements in report. and Trilaminar appearance to the endometrium is noted. Normal [facility] E2 [Mass/Vol]on 02-09-2024 REF VALUES FOLLICULAR PHASE 20-144 MID CYCLE 64-357 LUTEAL PHASE 56-214 POSTMENOPAUSE < 32 PREPUBERTY < 20 FEMALE 10-18Y 8-110 MALE 10-18Y < 20 ADULT MALE < 40 Estradiol measurement is performed using the [employer] Access Estradiol Immunoassay. Estradiol testing is performed using a different test methodology at [facility] than other [facility]. Direct result comparison should only be made within the same method. [facility] Estradiolon 02-09-2024 E2 [Mass/Vol] pg/mL pg/mL [facility] E2 [Mass/Vol] pg/mL Normal [facility] Comment on above: Order Comment: REF V ALUESFOLLICULAR PHASE 20-144MID CYCLE 64-357LUTEAL PHASE 56-214POSTMENOPAUSE < 32PREPUBERTY < 20FEMALE 10-18Y 8-110MALE 10-18Y < 20ADULT MALE < 40Estradiol measurement is performed using the [employer] Access Estradiol Immunoassay. Estradiol testing is performed using a different test methodology at [facility] than other [facility]. Direct resultcomparison should only be made within the same method. Performed By: #### 5 196-1 #### SHAI Pickard ([id number]) [facility] ([facility]) [id number] [place] [address]8570 Follicle Diameter USon 02-08 Follicle scan performed with follicle measurements in report. [facility] Radiology Study observation (narrative) [facility] Work Phone: Follicle Diameter USOrdered By: Juan Chavarria on 02-09-2024 [facility] Work Phone: Hematocrit Auto (Bld) [Volum e fraction]on 02-09-2024 Hematocrit (Bld) [Volume fraction] 42.9 % 36.0 - 46.0 % [facility] Interpretation and review of laboratory results Normal [facility] Hematocrit (Bld) [Volume fraction] 42.9 % Normal 36.0-46.0 [facility] Comment on above: Performed By: #### 4 544-3 #### JSOEPH ESQUIVEL ([id number]) [facility] ([facility]) [address] [id number] KELSY US PELVIS LIMITED FOLLIC LES-FOLLICLE STUDIES PERFORMEDon 02-09-2024 KELSY US PELVIS LIMITED FOLLICLES-FOLLICLE STUDIES PERFORMED Follicle scan performed with follicle measurements in report. Normal [facility] HCG ( test) Ql (U)o n 01-28-2024 Interpretation and review of laboratory results Normal [facility] Work Phone: Preg Test, Ur Negative Negative [facility] Work Phone: [facility] Work Phone: No Panel Informationon 01-27 [...] well, no immediate complications [facility] RIS [facility] Work Phone: Surgical pathology studyon 0 01-28-2024 Surgical pathology study Pathology report.total SEE COMMENT Surgical Pathology Case: [id number] Authorizing Provider: Leigh Ann Tuttle MD Collected: 01/28/2024 1027 Ordering Location: Valeria Chanel Received: 01/28/[address] [place] [address] Pathologist: Yamila Leo MD Specimen: ENDOMETRIUM POLYPECTOMY [...] is entirely submitted in 1 cassette. JEK/SBS [facility] IGP,APTIMA HPV,AGE GDLNon AGE GDLN ACOG TESTING Note . [facility] Comment on above: TESTS RESULT FLAG U NITS REF RANGE LAB Clinician Provided Cytology Information Source.............Cervix;Endocervix No. of containers..01 ThinPrep Vial Age Algo ACOG Telma... FLAG LEGEND: L-Low Normal,H-High Normal,LL-Alert Low,HH-Alert High <-Panic Low,>-Panic High,A-Abnormal,AA-Critical Abnormal Performed at: 01 =G [facility] [address] [facility] [place] [place] [address] Nidhi Fay MD, IGP, RFX APTIMA HPV ASCU Note . [facility] Comment on above: TESTS RESULT FLAG UN ITS REF RANGE LAB DIAGNOSIS: 02 NEGATIVE FOR INTRAEPITHELIAL LESION OR MALIGNANCY. Specimen adequacy: 02 Satisfactory for evaluation. Endocervical and/or squamous metaplastic cells (endocervical component) are present. Performed by: Gaby Masters Training And Development Head ([facility]) . 02 Note: Note 02 The [...] High,A-Abnormal,AA-Critical Abnormal Performed at: 02 WB [facility] [place] [address] [facility] [place] [address] Nidhi Fay MD, Performed at: =G - [facility] [place] [address] [place], [place] [id number] Stereo Equipment Repairer: Nidhi Fay MD, Phone: [phone] Performed at: WB - [facility] [place] [address] [place], [place] [id number] Stereo Equipment Repairer: Nidhi Fay MD, Phone: [phone] BRUSH-SPATULA CERVIX ENDOCERVIX [facility] Blood type and Indirect anti body screen panel (Bld)on 2023 ABO group Nom (Bld) O [facility] Blood group antibody screen Ql Negative [facility] D Ag Ql (Bld) Positive [facility] ABO group Nom (Bld) O Normal [facility] Comment on above: Performed By: #### 3 4532-2 #### JOSEPH ESQUIVEL ([id number]) MARIO BLOOD [facility] ([facility]) [id number] Blood group antibody screen Ql Negative [facility] Comment on above: Performed By: #### 3 4532-2 #### JOSEPH ESQUIVEL ([id number]) [facility] ([facility]) [address] D Ag Ql (Bld) Positive [facility] Comment on above: Performed By: #### 3 4532-2 #### JOSEPH ESQUIVEL ([id number]) [facility] ([facility]) [address] C. trachomatis and N. gonorr hoeae DNA EDELMIRA+probe Nom (Unsp spec)on 2023 C. trachomatis rRNA EDELMIRA+probe Ql (Unsp spec) Negative Normal Negative [facility] Comment on above: Order Comment: [...] By: #### 3 6903-3 #### SHAI Pickard ([id number]) [facility] ([facility]) [address] [place] [address] N. gonorrhoeae DNA Probe+sig amp Ql (Unsp spec) Negative Normal Negative [facility] Comment on above: Order Comment: [...] By: #### 3 6903-3 #### SHAI Pickard ([id number]) [facility] ([facility]) [address] [place], [place] [id number] HIV 1+2 Ab+HIV1 p24 Agon HIV 1+2 Ab+HIV1 p24 Ag IA Ql Non-Reactive Normal Nonreactive [facility] Comment on above: Order Comment: HIV A g/Ab screen is performed using the Siemens CellBiosciencesllTempMine HIV Ag/Ab Combo assay which detects the presence of HIV p24 antigen as well as antibodies to HIV-1 (Group M and O) and HIV-2. No laboratory evidence of HIV infection. If acute HIV infection is suspected, consider testing for HIV RNA by PCR (viral load). Performed By: #### 5 6888-1 #### SHAI Pickard ([id number]) [facility] ([facility]) [address] [place] [address] Hepatitis B virus surface Ag on 2023 HBV surface Ag IA Ql Non-Reactive Normal Nonreactive [facility] Comment on above: Result Comment: Biot in interference may cause falsely decreased results. Patients taking a Biotin dose of up to 5 mg/day should refrain from taking Biotin for 24 hours before sample collection. Providers may contact their local laboratory for further information. Performed By: #### 5 196-1 #### SHAI Pickard ([id number]) [facility] ([facility]) [address] [place] [address] Hepatitis C virus Abon 12-10 HCV Ab Ql (S) Non-Reactive Normal Nonreactive [facility] Comment on above: Result Comment: Resu lts from patients taking biotin supplements or receiving high-dose biotin therapy should be interpreted with caution due to possible interference with this test. Providers may contact their local laboratory for further information. Performed By: #### 1 6128-1 #### SHAI HARRISON L ([id number]) [facility] ([facility]) [address] [place] [address] Rubella virus IgG IA Qnon Rubella virus IgG IA Ql Positive Normal Negative [facility] Comment on above: Order [...] By: #### 5 334-8 #### SHAI Pickard ([id number]) [facility] ([facility]) [address] [place], [place] [phone] Rubella virus IgG Qn (S) 1.2 IA Normal <=0.7 IA [facility] Comment on above: Order Comment: [...] By: #### 5 334-8 #### SHAI Pickard ([id number]) [facility] ([facility]) [address] [place] [address] Treponema pallidum Ab.IgG+Ig Mon 2023 T. pallidum IgG+IgM IA Ql (S) Non-Reactive Normal Nonreactive [facility] Comment on above: Result Comment: No s ignificant level of Treponema pallidum antibody detected. Repeat testing in 2 to 4 weeks may be considered if early infection or incubating syphilis infection is suspected. Performed By: #### 4 7236-5 #### SHAI Pickard ([id number]) [facility] ([facility]) [address] [place], [place] [phone] VZV IgG IA Ql (S)on 12-11-19 24 VARICELLA ZOSTER IGG INDEX 5.6 IA High <=0.8 [facility] Comment on above: Order Comment: [...] By: #### 1 5410-4 #### SHAI Pickard ([id number]) [facility] ([facility]) [address] [place] [address] Varicella zoster virus Ab.Ig Biju 2023 VZV IgG IA Ql (S) Positive Abnormal Negative [facility] Comment on above: Order Comment: NEGAT [...] By: #### 1 5410-4 #### SHAI Pickard ([id number]) [facility] ([facility]) [address] [place] [address] Ambulatory Visit Summaryon 0 10-02-2023 Ambulatory Visit [...] knee anterior cruciate ligament allograft reconstruction with asuh-cvmyxg-ygnt, debridment medial meniscus tear, patellofemoral chondroplasty-Grade I-II (07/28/2013), Tonsillectomy, tubes in the ears. Discharge Vitals Temperature (Oral) 36.8 ?C Heart Rate (Peripheral) 65 Blood Pressure 118/66 Height 162 cm Height 64 in Weight 76.7 kg Weight 168.74 lb BMI 29.23 What to do next Scheduled Follow-Up Appointments Thursday 7:20 AM EDT With: Princess Dumont [facility] Normal [facility] Medicine Office/Clini c Noteon 10-02-2023 [...] lot of blood work ordered by her CURB SETTER and we are going to go over [...] mg once day. She has been taking ujza-qch-qvqmrld magnesium at night since initiating Topamax. Weight management. The patient expresses a desire to lose weight and re-initiate her Adipex. She has previously tried Aryan nfwq-xxj-wrjukjb but found it ineffective. 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 She is agreeable trying vitamin [...] in (more content not included)... [facility] Comment on above: Result Comment: Elec tronically Signed By: Princess Dumont\.br\Date and Time Signed: 10/02/23 16:44 EDT\.br\Electronically Co-Signed By: Raj Chu\.br\Date and Time Co-Signed: 10/02/23 15:48 EDT Lab Reportson 10-02-2023 Lab Reports [id number] 02#1.00TIFF [facility] Patient Educationon 10-02-19 Patient Education BMI [...] numbers. This can be done either in [place] ([place] or metric measurements. Note that charts and online BMI calculators are available to help you find your BMI quickly and easily without having to do these calculations yourself. To calculate your BMI in [place] ([place] measurements: 1. Measure your weight in [...] for Disease Control and Prevention: www.cdc.gov ? [place] Heart Association: www.heart.org ? National Heart, Lung, and Blood [place]: www.nhlbi.nih.gov Summary ? Body mass index (BMI) is a number that is calculated from a person's weight and height. ? BMI may help estimate how much of a person's weight is composed of fat. BMI can help identify those who may be at higher risk for certain medical problems. ? BMI can be measured using Pakistani measurements or metric measurements. ? BMI charts are used to identify whether you are underweight, normal weight, overweight, or obese. This information is not intended to replace advice given to you by your health care provider. Make sure you discuss any questions you have with your health care provider. Document Revised: 01/11/2020 Document Reviewed: 11/18/2019 [employer] Patient Education ? 2022 [employer]. Dermatology Eczema Eczema refers to a group [...] symptoms? S (more content not included)... Normal [facility] Transfer Inon 09-02-2023 Transfer In [id number] 2#1.00TIFF Normal [facility] Office/Clini c Noteon 08-29-2023 [...] and encouraged her to go see her CURB SETTER. The patient was overweight with an elevated BMI. Her laboratories I ordered were not performed, and she did not do the x-ray that I ordered either. She presents for headaches again. Cervicalgia and persistent headaches. The patient underwent cervical x-ray in 02/20/2023 in [place], the day after her last visit on [...] in 06/2023 or 07/2023 and done at [place]. She is uncertain if cholesterol levels were checked. Her bowel movements and urination are normal. She and her switched clinics where she is the patient for an IVF and are waiting for an appointment within the next 2 months. She has a . 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 Ibuprofen every 6 to 8 hours. Tylenol [...] appearing. EN (more content not included)... Normal [facility] Comment on above: Result Comment: Elec tronically Signed By: Princess Dumont\.rabia\Date and Time Signed: 08/29/23 15:46 EDT\.br\Electronically Co-Signed By: Ryan Kapadia.br\Date and Time Co-Signed: 08/28/23 11:38 EDT Patient [...] numbers. This can be done either in [place] ([place] or metric measurements. Note that charts and online BMI calculators are available to help you find your BMI quickly and easily without having to do these calculations yourself. To calculate your BMI in [place] ([place] measurements: 1. Measure your weight in [...] for Disease Control and Prevention: www.cdc.gov ? [place] Heart Association: www.heart.org ? National Heart, Lung, and Blood [place]: www.nhlbi.nih.gov Summary ? Body mass index (BMI) is a number that is calculated from a person's weight and height. ? BMI may help estimate how much of a person's weight is composed of fat. BMI can help identify those who may be at higher risk for certain medical problems. ? BMI can be measured using Pakistani measurements or metric measurements. ? BMI charts are used to identify whether you are underweight, normal weight, overweight, or obese. This information is not intended to replace advice given to you by your health care provider. Make sure you discuss any questions you have with your health care provider. Document Revised: 01/11/2020 Document Reviewed: 11/18/2019 [employer] Patient Education ? 2022 [employer] Endocrinology Carbohydrate Counting for Diabetes Mellitus, [...] contain carbohydra (more content not included)... Normal [facility] DHEA SERUMon 07-31-2022 Dehydroepiandrosterone (DHEA) 429 ng/dL Normal 31-701 [facility] Comment on above: Performed By: #### D MILTON. #### [facility] [address] [place] [address] Dr. Meghna Alas ANTI-MULLERIAN HORMONEon Anti-Mullerian Hormone (AMH) 2.01 ng/mL Normal [facility] Comment on above: Result Comment: For assays employing antibodies, the possibility exists for interference by heterophile antibodies in the samples.1 1.Ramon Pickard. Interferences in Immunoassays - still a threat. Clin. Chem. 2000; 46: 6543-3073. This test was developed and its performance characteristics determined by [employer]. It has not been cleared or approved by the Food and Drug Administration. Reference Range: Females 20 - 25y: 1.23 - 11.51 Median 4.70 AMH concentrations of >= 1.06 ng/mL is correlated with a better response to ovarian stimulation, produced more retrievable oocytes and higher odds of live according to Lindseyer et al. Fertility and Sterility. 2010: 94:8308-4706. The current AMH test method correlates with [...] tumor. Performed By: #### A JOSE #### [facility] [address] [address] [address] Meghna Alas PAP ACOG PANEL 2: 21 to 29on 07-29-2022 . . Normal [facility] Comment on above: Performed By: #### 4 [id number] ####[facility] [address] [address]Dr. Meghna Alas Age Gdln ACOG Testing - [facility] Comment on above: Performed By: #### 4 [id number] ####[facility] [address] [address]Dr. Meghna Alas DIAGNOSIS: Comment [facility] Comment on above: Result Comment: NEGA TIVE FOR INTRAEPITHELIAL LESION OR MALIGNANCY. Performed By: #### 4 [id number] ####[facility] [address] [address]Dr. Meghna Alas Methodology: Comment Normal [facility] Comment on above: Result Comment: This liquid based ThinPrep(R) pap test was screened with the use of an image guided system. Performed By: #### 4 [id number] ####[facility] [address] [address]Dr. Meghna Alas Note: Comment [facility] Comment on above: Result Comment: The Pap smear is a screening test designed to aid in the detection of premalignant and malignant conditions of the uterine cervix. It is not a diagnostic procedure and should not be used as the sole means of detecting cervical cancer. Both false-positive and false-negative reports do occur. . Performed By: #### 4 [id number] ####[facility] [address] [address]Dr. Meghna Alas Performed by: Comment Normal [facility] Comment on above: Result Comment: Antonella Villarreal, Supervisory Training And Development Head (ASCP) Performed By: #### 4 [id number] ####[facility] [address] [address]Dr. Meghna Alas Reflex Criteria: Comment [facility] Comment on above: Result Comment: The HPV DNA reflex criteria were not met with this specimen result therefore, no HPV testing was performed. . Performed By: #### 4 [id number] ####[facility] [address] [address]Dr. Meghna Alas Specimen adequacy: Comment Normal [facility] Comment on above: Result Comment: Sati sfactory for evaluation. Endocervical and/or squamous metaplastic cells (endocervical component) are present. Performed By: #### 4 [id number] ####[facility] [address] [id number]. Meghna Alas DHEA-SULFATEon 07-27-2022 DHEA-Sulfate 195.0 ug/dL Normal 110.0-431.7 [facility] Comment on above: Performed By: #### D HEMATILDE #### [facility] [address] [place] [address] Dr. Meghna Alas FSHon 07-27-2022 FSH 11.4 mIU/mL Normal [facility] Comment on above: Result Comment: Adul t Female: Follicular phase 3.5 - 12.5 Ovulation phase 4.7 - 21.5 Luteal phase 1.7 - 7.7 Postmenopausal 25.8 - 134.8 Performed By: #### L BCFS #### [facility] [address] [place] [address] Dr. Meghna Alas LUTEINIZING HORMONE (LH)on 0 07-27-2022 LH 61.8 mIU/mL Normal [facility] Comment on above: Result Comment: Adul t Female: Follicular phase 2.4 - 12.6 Ovulation phase 14.0 - 95.6 Luteal phase 1.0 - 11.4 Postmenopausal 7.7 - 58.5 Performed By: #### L BCL #### [facility] [address] [address] [address] Meghna Alas US PELVIS AND TRANSVAGon [...] RACQUEL UNLU Date: 2022-07-27 08:10 Normal [facility] CBC AUTO DIFFon 07-26-2022 BASO # 0.1 103/ul Normal 0.0-0.1 [facility] Comment on above: Performed By: #### C BC #### [facility] [address] [place] [address] Dr. Meghna Alas Basophils/100 WBC (Bld) 0.8 % Normal 0.2-2.0 [facility] Comment on above: Performed By: #### C BC #### [facility] [address] [place] [address] Dr. Meghna Alas EO # 0.2 103/ul Normal 0.0-0.7 [facility] Comment on above: Performed By: #### C BC #### [facility] [address] [place] [address] Dr. Meghna Alas Eosinophils/100 WBC (Bld) 3.7 % Normal 0.9-7.0 [facility] Comment on above: Performed By: #### C BC #### [facility] [address] [place] [address] Dr. Meghna Alas Erythrocyte distribution width (RBC) [Ratio] 11.7 % Normal 11.0-15.0 [facility] Comment on above: Performed By: #### C BC #### [facility] [address] [place] [address] Dr. Meghna Alas Hematocrit (Bld) [Volume fraction] 43.6 % Normal 36.0-48.0 [facility] Comment on above: Performed By: #### C BC #### [facility] [address] [place] [address] Dr. Meghna Alas Hemoglobin (Bld) [Mass/Vol] 14.9 g/dL Normal 12.0-16.0 [facility] Comment on above: Performed By: #### C BC #### [facility] [address] [place] [address] Dr. Meghna Alas IG # 0.02 10e3/ul Normal 0.00-0.03 [facility] Comment on above: Performed By: #### C BC #### [facility] [address] [place] [address] Dr. Meghna Alas IG % 0.3 % Normal 0.0-0.5 [facility] Comment on above: Performed By: #### C BC #### [facility] [address] [place] [address] Dr. Meghna Alas LYMPH # 1.7 103/ul Normal 1.2-3.8 [facility] Comment on above: Performed By: #### C BC #### [facility] [address] [place] [address] Dr. Meghna Alas Lymphocytes/100 WBC (Bld) 27.7 % Normal 20.5-60.0 [facility] Comment on above: Performed By: #### C BC #### [facility] [address] [place] [address] Dr. Meghna Alas MANUAL DIFF REQ NO Normal [facility] Comment on above: Performed By: #### C BC #### [facility] [address] [place] [address] Dr. Meghna Alas MCH (RBC) [Entitic mass] 30.7 pg Normal 26.7-34.0 [facility] Comment on above: Performed By: #### C BC #### [facility] [address] [place] [address] Dr. Meghna Alas MCHC (RBC) [Mass/Vol] 34.2 g/dL Normal 29.9-35.2 [facility] Comment on above: Performed By: #### C BC #### [facility] [address] [place] [address] Dr. Meghna Alas MCV (RBC) [Entitic vol] 89.7 fL Normal 81.0-99.0 [facility] Comment on above: Performed By: #### C BC #### [facility] [address] [place] [address] Dr. Meghna Alas MONO # 0.4 103/ul Normal 0.3-0.8 [facility] Comment on above: Performed By: #### C BC #### [facility] [address] [place] [address] Dr. Meghna Alas Monocytes/100 WBC (Bld) 7.1 % Normal 1.7-12.0 [facility] Comment on above: Performed By: #### C BC #### [facility] [address] [place] [address] Dr. Meghna Alas NEUT # 3.7 103/ul Normal 1.4-6.5 [facility] Comment on above: Performed By: #### C BC #### [facility] [address] [place] [address] Dr. Meghna Alas Neutrophils/100 WBC (Bld) 60.4 % Normal 43.0-75.0 [facility] Comment on above: Performed By: #### C BC #### [facility] [address] [place] [address] Dr. Meghna Alas Platelet mean volume (Bld) [Entitic vol] 11.3 fL Normal 9.5-13.5 [facility] Comment on above: Performed By: #### C BC #### [facility] [address] [place] [address] Dr. Meghna Alas PLT 154 103/ul Normal 150-450 [facility] Comment on above: Performed By: #### C BC #### [facility] [address] [place] [address] Dr. Meghna Alas RBC 4.86 106/ul Normal 4.20-5.40 [facility] Comment on above: Performed By: #### C BC #### [facility] [address] [place] [address] Dr. Meghna Alas WBC 6.2 103/ul Normal 4.0-11.0 [facility] Comment on above: Performed By: #### C BC #### [facility] [address] [place] [address] Dr. Meghna Alas FREE T4on 07-26-2022 Free T4 [Mass/Vol] 1.04 ng/dL Normal 0.76-1.46 [facility] Comment on above: Performed By: #### F T4 #### [facility] [address] [place] [address] Dr. Meghna Alas GLYCOHEMOGLOBIN A1Con 2022 ADA RECOMMENDATION SEE BELOW Normal [facility] Comment on above: Result Comment: ADA RECOMMENDED LIMIT 4.0 - 6.0 ADA THERAPEUTIC TARGET < 7.0 ACTION SUGGESTED > 7.0 Performed By: #### A 1C #### [facility] [address] [place] [address] Dr. Meghna Alas Glucose [Mass/Vol] 82 mg/dL Normal [facility] Comment on above: Performed By: #### A 1C #### [facility] [address] [place] [address] Dr. Meghna Alas HbA1c (Bld) [Mass fraction] 4.5 % Normal 4.5-6.2 [facility] Comment on above: Performed By: #### A 1C #### [facility] [address] [place] [address] Dr. Meghna Alas TSHon 07-26-2022 TSH 1.522 uIU/mL Normal 0.358-3.740 [facility] Comment on above: Performed By: #### T SH #### [facility] [address] [place] [id number] Dr[address] Meghna Alas Vital Signs Date Time Vital Sign Value Performing Clinician Facility 01-31-2025 14:07-0400 Body mass index (BMI) [Ratio] 40.57 kg/m2 Yomaira Guerrero NOODLE PRESS OPERATOR Work Phone: [facility] 01-31-2025 14:07-0400 Body weight 103.87 kg Yomaira Guerrero NOODLE PRESS OPERATOR Work Phone: [facility] 01-31-2025 14:07-0400 Diastolic blood pressure 76 mm[Hg] Yomaira Duncanly NOODLE PRESS OPERATOR Work Phone: [facility] 01-31-2025 14:07-0400 Systolic blood pressure 122 mm[Hg] Yomaira Duncanly NOODLE PRESS OPERATOR Work Phone: [facility] 01-16-2025 15:13-0400 Body mass index (BMI) [Ratio] 40.21 kg/m2 Layo Sherwin DO Work Phone: [facility] 01-16-2025 15:13-0400 Body weight 102.97 kg Layo Sherwin DO Work Phone: [facility] 01-16-2025 15:13-0400 Diastolic blood pressure 70 mm[Hg] Layo Sherwin DO Work Phone: [facility] 01-16-2025 15:13-0400 Systolic blood pressure 110 mm[Hg] Layo Sherwin DO Work Phone: [facility] 01-03-2025 10:15-0400 Body mass index (BMI) [Ratio] 39.47 kg/m2 Layo Sherwin DO Work Phone: [facility] 01-03-2025 10:15-0400 Body weight 101.06 kg Layo Sherwin DO Work Phone: [facility] 01-03-2025 10:15-0400 Diastolic blood pressure 74 mm[Hg] Layo Sherwin DO Work Phone: [facility] 01-03-2025 10:15-0400 Systolic blood pressure 118 mm[Hg] Layo Sherwin DO Work Phone: [facility] 12-19-2024 10:06-0400 Body mass index (BMI) [Ratio] 38.76 kg/m2 Layo Sherwin DO Work Phone: [facility] 12-19-2024 10:06-0400 Body weight 99.25 kg Layo Sherwin DO Work Phone: [facility] 12-19-2024 10:06-0400 Diastolic blood pressure 70 mm[Hg] Layo Sherwin DO Work Phone: [facility] 12-19-2024 10:06-0400 Systolic blood pressure 116 mm[Hg] Layo Sherwin DO Work Phone: [facility] 12-06-2024 08:33-0400 Body mass index (BMI) [Ratio] 38.09 kg/m2 Layo Sherwin DO Work Phone: [facility] 12-06-2024 08:33-0400 Body weight 97.52 kg Layo Sherwin DO Work Phone: [facility] 12-06-2024 08:33-0400 Diastolic blood pressure 70 mm[Hg] Layo Sherwin DO Work Phone: [facility] 12-06-2024 08:33-0400 Systolic blood pressure 100 mm[Hg] Layo Sherwin DO Work Phone: [facility] 11-08-2024 14:59-0400 Body mass index (BMI) [Ratio] 35.59 kg/m2 Layo Sherwin DO Work Phone: [facility] 11-08-2024 14:59-0400 Body weight 91.13 kg Layo Sherwin DO Work Phone: [facility] 11-08-2024 14:59-0400 Diastolic blood pressure 80 mm[Hg] Layo Sherwin DO Work Phone: [facility] 11-08-2024 14:59-0400 Systolic blood pressure 122 mm[Hg] Layo Sherwin DO Work Phone: [facility] 10-17-2024 13:08-0400 Body mass index (BMI) [Ratio] 35.52 kg/m2 Layo Sherwin DO Work Phone: [facility] 10-17-2024 13:08-0400 Body weight 90.95 kg Layo Sherwin DO Work Phone: [facility] 10-17-2024 13:08-0400 Diastolic blood pressure 82 mm[Hg] Layo Sherwin DO Work Phone: [facility] 10-17-2024 13:08-0400 Systolic blood pressure 126 mm[Hg] Layo Sherwin DO Work Phone: [facility] 10-11-2024 14:41-0400 Body mass index (BMI) [Ratio] 35.22 kg/m2 Layo Sherwin DO Work Phone: [facility] 10-11-2024 14:41-0400 Body weight 90.17 kg Layo Sherwin DO Work Phone: [facility] 10-11-2024 14:41-0400 Diastolic blood pressure 74 mm[Hg] Layo Sherwin DO Work Phone: [facility] 10-11-2024 14:41-0400 Systolic blood pressure 112 mm[Hg] Layo Sherwin DO Work Phone: [facility] 09-06-2024 15:31-0400 Body mass index (BMI) [Ratio] 33.17 kg/m2 Brandy Sheehan PA Work Phone: [facility] 09-06-2024 15:31-0400 Body weight 84.94 kg Brandy Sheehan PA Work Phone: [facility] 09-06-2024 15:31-0400 Diastolic blood pressure 82 mm[Hg] Brandy Sissy PA Work Phone: [facility] 09-06-2024 15:31-0400 Systolic blood pressure 110 mm[Hg] Brandy Sissy PA Work Phone: [facility] 08-08-2024 13:08-0400 Body mass index (BMI) [Ratio] 32.2 kg/m2 Layo Sherwin DO Work Phone: [facility] 08-08-2024 13:08-0400 Body weight 82.46 kg Layo Sherwin DO Work Phone: [facility] 08-08-2024 13:08-0400 Diastolic blood pressure 64 mm[Hg] Layo Sherwin DO Work Phone: [facility] 08-08-2024 13:08-0400 Systolic blood pressure 100 mm[Hg] Layo Sherwin DO Work Phone: [facility] 07-29-2024 09:53-0400 Body mass index (BMI) [Ratio] 31.18 kg/m2 [facility] Nurse [facility] 07-29-2024 09:53-0400 Body weight 79.83 kg [facility] Nurse [facility] 07-29-2024 09:53-0400 Diastolic blood pressure 72 mm[Hg] [facility] Nurse [facility] 07-29-2024 09:53-0400 Systolic blood pressure 118 mm[Hg] [facility] Nurse [facility] 04-06-2024 14:04-0500 Blood Pressure Location Mallory Jauregui [facility] 04-06-2024 14:04-0500 Diastolic blood pressure 74 mm[Hg] Mallory Sethicross [facility] 04-06-2024 14:04-0500 Heart rate 80 /min Mallory Sethicross [facility] 04-06-2024 14:04-0500 SaO2% (BldA) [Mass fraction] 100 % Mallory Sethicross [facility] 04-06-2024 14:04-0500 Systolic blood pressure 108 mm[Hg] Mallory Sethicross [facility] 03-22-2024 10:45-0500 Diastolic blood pressure 62 mm[Hg] Juan Chavarria MD Work Phone: [facility] 03-22-2024 10:45-0500 Heart rate 65 /min Juan Chavarria MD Work Phone: [facility] 03-22-2024 10:45-0500 Respiratory rate 17 /min Juan Chavarria MD Work Phone: [facility] 03-22-2024 10:45-0500 SaO2% (BldA) [Mass fraction] 100 % Juan Chavarria MD Work Phone: [facility] 03-22-2024 10:45-0500 Systolic blood pressure 94 mm[Hg] Juan Chavarria MD Work Phone: [facility] 03-22-2024 09:45-0500 Body temperature 97.3 [degF] Juan Chavarria MD Work Phone: [facility] 03-22-2024 08:29-0500 Body height 160 cm Juan Chavarria MD Work Phone: [facility] 03-22-2024 08:29-0500 Body mass index (BMI) [Ratio] 29.25 kg/m2 Juan Chavarria MD Work Phone: [facility] 03-22-2024 08:29-0500 Body weight 74.9 kg Juan Chavarria MD Work Phone: [facility] 02-23-2024 09:49-0400 Body temperature 97.7 [degF] Juan Chavarria MD Work Phone: [facility] 02-23-2024 09:49-0400 Diastolic blood pressure 65 mm[Hg] Juan Chavarria MD Work Phone: [facility] 02-23-2024 09:49-0400 Heart rate 94 /min Juan Chavarria MD Work Phone: [facility] 02-23-2024 09:49-0400 Respiratory rate 22 /min Juan Chavarria MD Work Phone: [facility] 02-23-2024 09:49-0400 SaO2% (BldA) [Mass fraction] 100 % Juan Chavarria MD Work Phone: [phone] [place] [address] 02-23-2024 09:49-0400 Systolic blood pressure 102 mm[Hg] Juan Chavarria MD Work Phone: [facility] 02-23-2024 07:27-0400 Body height 160 cm Juan Chavarria MD Work Phone: [facility] 02-23-2024 07:27-0400 Body mass index (BMI) [Ratio] 29.41 kg/m2 Juan Chavarria MD Work Phone: [facility] 02-23-2024 07:27-0400 Body weight 75.3 kg Juan Chavarria MD Work Phone: [facility] 01-28-2024 10:31-0400 Diastolic blood pressure 59 mm[Hg] Leigh Ann Tuttle MD Work Phone: [facility] 01-28-2024 10:31-0400 Heart rate 71 /min Leigh Ann Tuttle MD Work Phone: [facility] 01-28-2024 10:31-0400 Respiratory rate 20 /min Leigh Ann Tuttle MD Work Phone: [facility] 01-28-2024 10:31-0400 SaO2% (BldA) [Mass fraction] 100 % Leigh Ann Tuttle MD Work Phone: [facility] 01-28-2024 10:31-0400 Systolic blood pressure 101 mm[Hg] Leigh Ann Tuttle MD Work Phone: [facility] 01-28-2024 09:31-0400 Body temperature 98.1 [degF] Leigh Ann Tuttle MD Work Phone: [facility] 01-28-2024 08:48-0400 Body height 160 cm Leigh Ann Tuttle MD Work Phone: [facility] 01-28-2024 08:48-0400 Body mass index (BMI) [Ratio] 29.21 kg/m2 Leigh Ann Tuttle MD Work Phone: [facility] 01-28-2024 08:48-0400 Body weight 74.8 kg Leigh Ann Tuttle MD Work Phone: [facility] 01-14-2024 10:52-0400 Body mass index (BMI) [Ratio] 29.43 kg/m2 Brandy Sheehan PA Work Phone: [facility] 01-14-2024 10:52-0400 Body weight 75.35 kg Brandy [place] PA Work Phone: [facility] 01-14-2024 10:52-0400 Diastolic blood pressure 70 mm[Hg] Brandy [place] PA Work Phone: [facility] 01-14-2024 10:52-0400 Systolic blood pressure 120 mm[Hg] Brandy Sheehan PA Work Phone: [facility] 12-28-2023 10:09-0400 Body height 160 cm Juan Chavarria MD Work Phone: [facility] 12-28-2023 10:09-0400 Body mass index (BMI) [Ratio] 30.11 kg/m2 Juan Chavarria MD Work Phone: [facility] 12-28-2023 10:09-0400 Body weight 77.11 kg Juan Chavarria MD Work Phone: [facility] 12-28-2023 10:09-0400 Diastolic blood pressure 81 mm[Hg] Juan Chavarria MD Work Phone: [facility] 12-28-2023 10:09-0400 Heart rate 62 /min Juan Chavarria MD Work Phone: [facility] 12-28-2023 10:09-0400 Systolic blood pressure 119 mm[Hg] Juan Chavarria MD Work Phone: [facility] 2023 08:46-0400 Body height 160 cm Trish Thorpe APRN-MEDICAL ASSISTING PROGRAM DIRECTOR Work Phone: [facility] 2023 08:46-0400 Body mass index (BMI) [Ratio] 29.23 kg/m2 Trish Brown HANDLE LATHE OPERATOR-MEDICAL ASSISTING PROGRAM DIRECTOR Work Phone: [facility] 2023 08:46-0400 Body weight 74.84 kg Trish Thorpe HANDLE LATHE OPERATOR-MEDICAL ASSISTING PROGRAM DIRECTOR Work Phone: [facility] 2023 08:46-0400 Diastolic blood pressure 67 mm[Hg] Trish Thorpe HANDLE LATHE OPERATOR-MEDICAL ASSISTING PROGRAM DIRECTOR Work Phone: [facility] 2023 08:46-0400 Heart rate 72 /min Trish Thorpe HANDLE LATHE OPERATOR-MEDICAL ASSISTING PROGRAM DIRECTOR Work Phone: [facility] 2023 08:46-0400 Systolic blood pressure 122 mm[Hg] Trish Thorpe HANDLE LATHE OPERATOR-MEDICAL ASSISTING PROGRAM DIRECTOR Work Phone: [facility] 10-02-2023 11:14-0400 Blood Pressure Location Princess [...] blood pressure 110 mm[Hg] Princess Rapp [facility] 07-24-2021 16:57-0400 Blood Pressure Location Leigh Ann [facility] 07-24-2021 16:57-0400 Body temperature 97.7 [degF] Leigh Ann [facility] 07-24-2021 16:57-0400 Diastolic blood pressure 68 mm[Hg] [facility] 07-24-2021 16:57-0400 Heart rate 88 /min [facility] 07-24-2021 16:57-0400 SaO2% (BldA) [Mass fraction] 99 % [facility] 07-24-2021 16:57-0400 Systolic blood pressure 122 mm[Hg] [facility] Encounters Encounter Date Encounter Type Care Provider Facility Start: 02-01-2025 End: 02-01-2025 Clinisync Result Encounter Layo Sherwin DO Work Phone: [facility] Unsolicited Start: 02-01-2025 End: 02-01-2025 Clinisync Result Encounter Layo Sherwin DO Work Phone: [facility] Unsolicited Start: 01-31-2025 End: 01-31-2025 Bamboo flowsheet Yomaira Guerrero NOODLE PRESS OPERATOR Work Phone: [facility] Start: 01-31-2025 End: 01-31-2025 Bamboo flowsheet Yomaira Guerrero NOODLE PRESS OPERATOR Work Phone: [facility] Start: 01-31-2025 End: 01-31-2025 ambulatory YOMAIRA NATARAJANERLY Not Available Start: 01-31-2025 End: 01-31-2025 flow sheet Yomaira Cesar NOODLE PRESS OPERATOR Work Phone: [facility] Comment on above: Third trimester preg rehan ([facility]); 35 weeks gestation of ([facility]); Encounter for in vitro fertilization Start: 01-25-2025 [...] on above: 33 weeks gestation o f ([facility]); Third trimester ([facility]); Group B streptococcal infection; resulting from in vitro fertilization in first trimester ([facility]) Start: 01-16-2025 End: 01-16-2025 ambulatory LAYO SHERWIN Not Available Start: 01-16-2025 End: 09-15-2025 Bamboo flowsheet Layo Sherwin DO Work Phone: [facility] Start: 01-16-2025 End: 01-16-2025 Bamboo flowsheet Layo Sherwin DO Work Phone: [facility] Start: 01-10-2025 End: 01-10-2025 Clinisync Result Encounter Layo Sherwin DO Work Phone: [facility] External Department Unsolicited Start: 01-10-2025 End: 01-10-2025 Clinisync Result Encounter Layo Sherwin DO Work Phone: [facility] Unsolicited Start: 01-03-2025 End: 01-03-2025 Bamboo flowsheet Layo Sherwin DO Work Phone: [facility] Start: 01-03-2025 End: 01-03-2025 Bamboo flowsheet Layo Sherwin DO Work Phone: [facility] Start: 01-03-2025 End: 01-03-2025 flow sheet Layo Sherwin DO Work Phone: [facility] Comment on above: Third trimester preg rehan ([facility]); 31 weeks gestation of ([facility]); resulting from in vitro fertilization in third trimester ([facility]) Start: 01-03-2025 End: 01-03-2025 ambulatory LAYO SHERWIN Not Available Start: 12-19-2024 End: 12-19-2024 flow sheet Layo Sherwin DO Work Phone: [facility] Comment on above: 29 weeks gestation o f ([facility]); Third trimester ([facility]); Leukocytes in urine; Other microscopic hematuria Start: 12-19-2024 End: 12-19-2024 ambulatory LAYO SHERWIN Not Available Start: 12-06-2024 End: 12-06-2024 Bamboo flowsheet Layo Sherwin DO Work Phone: [facility] Start: 12-06-2024 End: 12-06-2024 Bamboo flowsheet Layo Sherwin DO Work Phone: [facility] Start: 12-06-2024 End: 12-06-2024 Clinisync Result Encounter Layo Sherwin DO Work Phone: [facility] External [facility] Unsolicited Start: 12-06-2024 End: 12-06-2024 flow sheet Layo Sherwin DO Work Phone: [facility] Comment on above: 27 weeks gestation o f ([facility]); Second trimester ([facility]) Start: 12-06-2024 End: 12-06-2024 ambulatory LAYO SHERWIN Not Available Start: 11-26-2024 End: 11-26-2024 Clinisync Result Encounter Layo Sherwin DO Work Phone: [facility] Unsolicited Start: 11-26-2024 End: 11-26-2024 Clinisync Result Encounter Layo Sherwin DO Work Phone: [facility] Unsolicited Start: 11-08-2024 End: 11-08-2024 flow sheet Layo Sherwin DO Work Phone: [facility] Comment on above: Second trimester pre gnancy ([facility]); 26 weeks gestation of ([facility]); Diabetes mellitus screening Start: 11-08-2024 End: 11-08-2024 [...] Second trimester ([facility]); 20 weeks gestation of ([facility]) Start: 10-17-2024 End: 10-17-2024 ambulatory LAYO SHERWIN [...] Ultrasound 1 [facility] Comment on above: ([facility]) Start: 10-07-2024 End: 10-07-2024 ambulatory LAYO [facility] Start: 09-22-2024 End: 09-22-2024 ambulatory BRANDY [...] End: 07-11-2024 Patient encounter procedure Donya Abernathy HANDLE LATHE OPERATOR-MEDICAL ASSISTING PROGRAM DIRECTOR Work Phone: [facility] Comment on above: Fertility testing (P rimary Dx); Encounter to determine viability of , single or unspecified fetus Start: 07-11-2024 End: 07-11-2024 ambulatory [facility] Start: 06-30-2024 End: 06-30-2024 [facility] Start: 06-23-2024 End: 06-23-2024 [facility] Start: 06-23-2024 End: 06-23-2024 [facility] Start: 06-13-2024 End: 06-13-2024 Subsequent hospital visit by physician Juan Chavarria MD Work Phone: [facility] Comment on above: Encounter for assist ed reproductive fertility cycle Start: 06-13-2024 End: 06-13-2024 ambulatory [facility] Start: 06-07-2024 End: 06-07-2024 [facility] Start: 06-06-2024 End: 06-06-2024 [facility] Start: 06-06-2024 End: 06-06-2024 Professional / ancillary services management Myles Sullivan Kelsy Ultrasound [facility] Comment on above: Female infertility Start: 06-06-2024 End: 06-06-2024 [facility] Start: 05-23-2024 End: 05-23-2024 [facility] Start: 04-06-2024 ambulatory Mallory Jauregui [facility]ity[facility] Start: 04-06-2024 End: 04-06-2024 Patient encounter procedure Mallory [facility] Start: 03-22-2024 End: 03-22-2024 Subsequent hospital visit by physician Juan Chavarria MD Work Phone: [facility] Comment on above: Encounter for assist ed reproductive fertility cycle Start: 03-22-2024 End: 03-22-2024 ambulatory JUAN Zamora [facility] Start: 03-21-2024 End: 03-21-2024 [facility] Start: 03-20-2024 End: 03-20-2024 Professional / ancillary services management Mac [id number] [facility] Ultrasound [facility] Comment on above: Female infertility Start: 03-20-2024 End: 03-20-2024 ambulatory [facility] Start: 03-19-2024 End: 03-19-2024 Professional / ancillary services management Mac [id number] K[facility] Ultrasound [facility] Comment on above: Female infertility Start: 03-19-2024 End: 03-19-2024 [facility] Start: 03-17-2024 End: 03-17-2024 [facility] Start: 03-17-2024 End: 03-17-2024 Professional / ancillary services management Mac [id number] Kelsy Ultrasound [facility] Comment on above: Female infertility Start: 03-17-2024 End: 03-17-2024 [facility] Start: 03-15-2024 End: 03-15-2024 [facility] Start: 03-15-2024 End: 03-15-2024 [facility] Start: 03-15-2024 End: 03-15-2024 Professional / ancillary services management Mac [id number] Kelsy Ultrasound [facility] Comment on above: Female infertility Start: 03-09-2024 End: 03-09-2024 [facility] Start: 03-09-2024 End: 03-09-2024 Patient encounter status [facility] Start: 03-09-2024 End: 03-09-2024 Professional / ancillary services management Mac [id number] Kelsy Ultrasound [facility] Comment on above: Female infertility; Pre-procedure lab exam Start: 03-09-2024 End: 03-09-2024 ambulatory AMERICA Del Real [facility] Start: 02-23-2024 End: 02-23-2024 Subsequent hospital visit by physician Juan Chavarria MD Work Phone: [facility] Comment on above: Encounter for assist ed reproductive fertility cycle Start: 02-23-2024 End: 02-23-2024 ambulatory JUAN CHAVARRIA [facility] Start: 02-22-2024 End: 02-22-2024 ambulatory [facility] Start: 02-21-2024 End: 02-21-2024 Professional / ancillary services management Mac [id number] Kelsy Ultrasound [facility] Comment on above: Female infertility Start: 02-21-2024 End: 02-21-2024 ambulatory AMERICA R [facility] Start: 02-20-2024 End: 02-20-2024 ambulatory [facility] Start: 02-20-2024 End: 02-20-2024 Professional / ancillary services management Mac [id number] Kelsy Ultrasound [facility] Comment on above: Female infertility Start: 02-20-2024 End: 02-20-2024 ambulatory [facility] Start: 02-18-2024 End: 02-18-2024 [facility] Start: 02-18-2024 End: 02-18-2024 Professional / ancillary services management Mac [id number] Kelsy Ultrasound [facility] Comment on above: Female infertility Start: 02-18-2024 End: 02-18-2024 ambulatory AMERICA R [facility] Start: 02-16-2024 End: 02-16-2024 Professional / ancillary services management [facility] [id number] Kelsy Ultrasound [facility] [place] Comment on above: Female infertility Start: 02-16-2024 End: 02-16-2024 ambulatory [facility] Start: 02-09-2024 End: 02-09-2024 Patient encounter status [facility] Start: 02-09-2024 End: 02-09-2024 Professional / ancillary services management [facility] Laurie Kelsy Ultrasound [facility] Comment on above: Pre-procedure lab ex am; Female infertility Start: 02-09-2024 End: 02-09-2024 ambulatory AMERICA QUINTANILLA [facility] Start: 02-02-2024 End: 02-02-2024 ambulatory [facility] Start: 01-28-2024 End: 01-28-2024 Subsequent hospital visit by physician Leigh Ann Tuttle MD Work Phone: [facility] Comment on above: Endometrial polyp Start: 01-28-2024 End: 01-28-2024 ambulatory LEIGH ANN TUTTLE [facility] Start: 01-25-2024 End: 01-25-2024 ambulatory [facility] Start: 01-25-2024 End: 01-25-2024 Encounter for preprocedural laboratory examination [facility] Start: 01-14-2024 End: 01-14-2024 Bamboo flowsheet Brandy [...] encounter procedure Juan Chavarria MD Work Phone: [facility] Comment on above: Fertility testing [Z 31.41] (Primary Dx); 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 [Z31.81, N97.8] Start: 12-28-2023 End: 12-28-2023 ambulatory JUAN CHAVARRIA [facility] Start: 12-25-2023 End: 12-25-2023 ambulatory AFUA JULIAN [facility] Start: 2023 End: 2023 ambulatory TRISH THORPE [facility] Start: 2023 End: 2023 Patient encounter procedure Trish Thorpe HANDLE LATHE OPERATOR-MEDICAL ASSISTING PROGRAM DIRECTOR Work Phone: [facility] Comment on above: Encounter for screen ing for other viral diseases (Primary Dx); Encounter for Rh blood typing; Screening for STDs (sexually transmitted diseases); Genetic screening; Fertility testing; Female infertility associated with male factors Start: 2023 End: 2023 Patient encounter status Trish Thorpe HANDLE LATHE OPERATOR-MEDICAL ASSISTING PROGRAM DIRECTOR Work Phone: [facility] Work Phone: Start: 2023 End: 2023 ambulatory TRISH Polo [facility] Start: 2023 End: 2023 Encounter for blood typing TRISH Polo [facility] Start: 10-21-2023 ambulatory Princess Rapp [facility] ity:[facility] Start: 10-02-2023 End: 10-02-2023 ambulatory Princess Rapp Facility:[facility] Start: 10-02-2023 End: 10-02-2023 Patient encounter procedure Princess [facility] Start: 08-27-2023 End: 08-27-2023 ambulatory Princess Rapp Facility:[facility] Start: 08-27-2023 End: 08-27-2023 Patient encounter procedure Princess [facility] Start: 03-25-2023 End: 03-25-2023 Patient encounter procedure Princess [facility] Start: 02-19-2023 End: 02-19-2023 Patient encounter procedure Princess [facility] Start: 07-26-2022 End: 07-27-[address] LAYO COURTNEY . Facility:[facility] Start: 07-23-2022 End: 07-23-[address] LAYO COURTNEY . Facility: Start: 07-24-2021 End: 07-24-2021 Patient encounter procedure [facility] Procedures Date Procedure Procedure Detail Performing Clinician Start: 02-01-2025 US OB BPP W NON-STRESS Lyao Sherwin DO Work Phone: Start: 02-01-2025 US OB GROWTH Layo Fazi o DO Work Phone: Start: 01-31-2025 Urnls dip stick/tabl et rgnt non-auto w/o micrscp Yomaira Guerrero NP Work Phone: Start: 01-25-2025 US [...] 10-11-2024 ALL CBC WITH AUTO DIFF Layo Keyzio DO Work Phone: Start: 10-07-2024 Us preg uterus w/det ail kehinde 1st gestation Layo Courtney DO Work Phone: Start: 10-07-2024 Us preg uterus w/det ail kehinde 1st gestation Layo Courtney DO Work Phone: Start: 09-06-2024 RECURRENT VAGINITIS [...] ic image dcmtn limited/f/u Donya Melly Josemanuel HANDLE LATHE OPERATOR-MEDICAL ASSISTING PROGRAM DIRECTOR Work Phone: Start: 03-22-2024 Follicle puncture oo cyte retrieval any method Donya Melly Josemanuel HANDLE LATHE OPERATOR-MEDICAL ASSISTING PROGRAM DIRECTOR Work Phone: Start: 03-20-2024 Us pelvic nonobstetr ic image dcmtn limited/f/u Donya Pickard Josemanuel HANDLE LATHE OPERATOR-MEDICAL ASSISTING PROGRAM DIRECTOR Work Phone: Start: 03-20-2024 Assay of estradiol America Quintanilla HANDLE LATHE OPERATOR-MEDICAL ASSISTING PROGRAM DIRECTOR Work Phone: Start: 03-19-2024 Us pelvic nonobstetr ic image dcmtn limited/f/u Donya Pickard Josemanuel HANDLE LATHE OPERATOR-MEDICAL ASSISTING PROGRAM DIRECTOR Work Phone: Start: 03-17-2024 Us pelvic nonobstetr ic image dcmtn limited/f/u Donya Pickard Josemanuel HANDLE LATHE OPERATOR-MEDICAL ASSISTING PROGRAM DIRECTOR Work Phone: Start: 03-17-2024 Assay of estradiol Donya Melly Josemanuel HANDLE LATHE OPERATOR-MEDICAL ASSISTING PROGRAM DIRECTOR Work Phone: Start: 03-15-2024 Us pelvic nonobstetr ic image dcmtn limited/f/u Donya Pickard Josemanuel HANDLE LATHE OPERATOR-MEDICAL ASSISTING PROGRAM DIRECTOR Work Phone: Start: 03-15-2024 Assay of estradiol Donya Abernathy HANDLE LATHE OPERATOR-MEDICAL ASSISTING PROGRAM DIRECTOR Work Phone: Start: 03-09-2024 Us pelvic nonobstetr ic image dcmtn limited/f/u America R Dwight HANDLE LATHE OPERATOR-MEDICAL ASSISTING PROGRAM DIRECTOR Work Phone: Start: 03-09-2024 Blood count hematocrit Donya Abernathy HANDLE LATHE OPERATOR-MEDICAL ASSISTING PROGRAM DIRECTOR Work Phone: Start: 02-23-2024 Follicle puncture oo cyte retrieval any method Beth Warren MD Work Phone: Start: 02-21-2024 Us pelvic nonobstetr ic image dcmtn limited/f/u America R Dwight HANDLE LATHE OPERATOR-MEDICAL ASSISTING PROGRAM DIRECTOR Work Phone: Start: 02-21-2024 Gonadotropin luteini zing hormone Beti Warren MD Work Phone: Start: 02-18-2024 Us pelvic nonobstetr ic image dcmtn limited/f/u America R Dwight HANDLE LATHE OPERATOR-MEDICAL ASSISTING PROGRAM DIRECTOR Work Phone: Start: 02-18-2024 Assay of estradiol America R Dwight HANDLE LATHE OPERATOR-MEDICAL ASSISTING PROGRAM DIRECTOR Work Phone: Start: 02-16-2024 Assay of estradiol America R Dwight HANDLE LATHE OPERATOR-MEDICAL ASSISTING PROGRAM DIRECTOR Work Phone: Start: 02-09-2024 Blood count hematocrit America R Dwight HANDLE LATHE OPERATOR-MEDICAL ASSISTING PROGRAM DIRECTOR Work Phone: Start: 02-09-2024 Us pelvic nonobstetr ic image dcmtn limited/f/u America R Dwight HANDLE LATHE OPERATOR-MEDICAL ASSISTING PROGRAM DIRECTOR Work Phone: Start: 01-28-2024 Hysteroscopy bx endometrium&/polypc w/wo d&c Juan Chavarria MD Work Phone: Start: 01-28-2024 Urine test visual color cmprsn carlos Tuttle MD Work Phone: Start: 01-14-2024 IGP,APTIMA HPV,AGE GDLN Brandy SEARS Work Phone: Start: 01-14-2024 Microscopic observat ion [Identifier] in Cervix by Cyto stain Leigh Ann Tuttle MD Work Phone: Start: 11-15-2015 Right Knee Arthrosco py with Medial Meniscal Repair Leigh Ann Covington Start: 07-28-2013 right knee anterior cruciate ligament allograft reconstruction with mhyw-auvony-lvhu, debridment medial meniscus tear, patellofemoral chondroplasty-Grade I-II Leigh Annjuan Covington Tonsillectomy Leigh Annjuan Covington tubes in the ears Leigh Ann Himanshu [place] Plan of Treatment Date Care Activity Detail Author Start: 2072 RSV High Risk: (Elderly (60+) or Population) (1 - 1-dose 75+ series) RSV High Risk: (Elderly (60+) or Population) (1 - 1-dose 75+ series) [facility] Start: 12-12-2047 Zoster Vaccines (1 of 2) Zoster Vaccines (1 of 2) [facility] Start: 01-13-2027 Screening for malignant neoplasm of cervix [facility] Start: 02-07-2025 End: 02-07-2025 Patient encounter procedure 02/07/2025 1:40 PM EDT Routine SHIRA ZACARIAS [address] [place] [address] Yomaira Guerrero, NOODLE PRESS OPERATOR [address] [place] [address] SHIRA [place] OBSANDIP Start: 01-31-2025 End: 01-31-2026 CULTURE, GROUP B STREP WITH SUSCEPTIBLITY CULTURE, GROUP B STREP WITH SUSCEPTIBLITY Lab Routine Third trimester ([facility]) Expected: 01/31/2025, Expires: 01/31/2026 [facility] Work Phone: Comment on above: Expected: 01/31/2025, Expires: Start: 01-31-2025 End: 06-02-2025 US for US OB follow up transabdominal approach Imaging Routine Encounter for in vitro fertilization Expected: 01/31/2025, Expires: 06/02/2025 [facility] Comment on above: Expected: 01/31/2025, Expires: Start: 01-31-2025 End: 01-31-2025 Patient encounter procedure 01/31/2025 1:50 PM EDT Routine NOM[facility]isha [place] [facility] [address] [place] [phone] Yomaira Guerrero, NOODLE PRESS OPERATOR [address] [place] [phone] SHIRA [place] OBG[facility] Start: 01-30-2025 End: 01-30-2025 Patient encounter procedure 01/30/2025 3:50 PM EDT Routine [facility]OM[facility] [place] [facility] [address] [place] [phone] Yomaira Guerrero, NOODLE PRESS OPERATOR [address] [place] [phone] SHIRA [place] OBGYN Start: 01-16-2025 End: 01-16-2025 Patient encounter procedure [facility] Tracy ZACARIAS Comment on above: Arrived Start: 01-03-2025 End: 07-03-2025 US biophysical profile w non stress test US biophysical profile w non stress test Imaging Routine resulting from in vitro fertilization in third trimester ([facility]) Expected: 01/03/2025 (Approximate), Expires: 07/03/2025 [facility] Work Phone: Comment on above: Expected: 01/03/2025 (Approximate), Expi res: 07/03/2025 Start: 01-03-2025 End: 01-03-2025 Patient encounter procedure JASMINS Tracy ZACARIAS Comment on above: Arrived Start: 01-02-2025 Influenza vaccination Influenza Vaccine (Season Ended) [facility] Start: 12-19-2024 End: 12-19-2024 Professional / ancillary services management 12/19/2024 9:30 AM EDT Ancillary Procedure [facility] [address] [place] [phone] [facility] Start: 12-19-2024 End: 12-19-2024 Patient encounter procedure [facility] Start: 12-06-2024 End: 12-06-2024 Patient encounter procedure [facility] Comment on above: Arrived Start: 11-08-2024 End: 11-08-2024 Patient encounter procedure 11/08/2024 2:40 PM EDT Routine [facility] [address] [place] [phone] Layo Courtney, DO [address] [place] [address] [facility] Start: 11-08-2024 End: 11-08-2025 CBC panel - Blood by Automated count CBC Lab Routine Diabetes mellitus screening Expected: 11/08/2024 (Approximate), Expires: 11/08/2025 [facility] Work Phone: Comment on above: Expected: 11/08/2024 (Approximate), Expi res: 11/08/2025 Start: 11-08-2024 End: 11-08-2025 Measurement of glucose 1 hour after glucose challenge for glucose tolerance test Glucose tolerance, 1 hour Lab Routine Diabetes mellitus screening Expected: 11/08/2024 (Approximate), Expires: 11/08/2025 [facility] Comment on above: Expected: 11/08/2024 (Approximate), Expi res: 11/08/2025 Start: 10-17-2024 End: 10-17-2024 Patient encounter procedure 10/17/2024 1:00 PM EDT Routine [facility] [address] [place] [phone] Layo Courtney, DO [address] [place] [address] Arrived [facility] Comment on above: [...] Routine Pruritus Expected: 10/11/2024 (Approximate), Expires: 10/11/2025 [facility] Comment on above: Expected: 10/11/2024 (Approximate), Expi res: 10/11/2025 Start: 10-11-2024 End: 10-11-2025 Hepatic function 2000 panel - Serum or Plasma Hepatic function panel Lab Routine Pruritus Expected: 10/11/2024 (Approximate), Expires: 10/11/2025 [facility] Comment on above: Expected: 10/11/2024 (Approximate), Expi res: 10/11/2025 Start: 10-11-2024 End: 10-11-2025 Hepatitis C virus Ab [Presence] in Serum or Plasma by Immunoassay Hepatitis C antibody Lab Routine Pruritus Expected: 10/11/2024 (Approximate), Expires: 10/11/2025 [facility] Work Phone: Comment on above: Expected: 10/11/2024 (Approximate), Expi res: 10/11/2025 Start: 10-11-2024 End: 10-11-2025 Thyrotropin [Units/volume] in Serum or Plasma TSH Lab Routine Pruritus Expected: 10/11/2024 (Approximate), Expires: 10/11/2025 [facility] Comment on above: Expected: 10/11/2024 (Approximate), Expi res: 10/11/2025 Start: 09-06-2024 End: 09-06-2024 Patient encounter procedure [facility] Comment on above: Arrived Start: 09-06-2024 End: 11-06-2024 Alpha fetoprotein, maternal Alpha fetoprotein, maternal Lab Routine Second trimester Expected: 09/06/2024 (Approximate), Expires: 11/06/2024 [facility] Comment on above: Expected: 09/06/2024 (Approximate), Expi res: 11/06/2024 Start: 09-06-2024 End: 12-07-2024 US for US OB 14+ weeks anatomy scan Imaging Routine Screening, , for anatomic survey Expected: 09/06/2024, Expires: 12/07/2024 [facility] Comment on above: Expected: 09/06/2024, Expires: Start: 08-08-2024 End: 08-08-2024 Patient encounter procedure [facility] Comment on above: Arrived Start: 07-29-2024 End: 07-29-2025 ABO/Rh ABO/Rh Lab Routine Missed menses , unspecified gestational age Expected: 07/29/2024 (Approximate), Expires: 07/29/2025 [facility] Comment on above: Expected: 07/29/2024 (Approximate), Expi res: 07/29/2025 Start: 07-29-2024 End: 07-29-2025 Blood type and Indirect antibody screen panel - Blood Type and screen Lab Routine Missed menses , unspecified gestational age Expected: 07/29/2024 (Approximate), Expires: 07/29/2025 [facility] Work Phone: Comment on above: Expected: 07/29/2024 (Approximate), Expi res: 07/29/2025 Start: 07-29-2024 End: 07-29-2025 Drugs of abuse panel - Urine by Screen method Rapid drug screen, urine Lab Routine , unspecified gestational age Encounter for supervision of normal first in first trimester Expected: 07/29/2024 (Approximate), Expires: 07/29/2025 [facility] Comment on above: Expected: 07/29/2024 (Approximate), Expi res: 07/29/2025 Start: 07-11-2024 End: 07-11-2025 Progesterone [Mass/volume] in Serum or Plasma Progesterone Lab Routine Fertility testing Expected: 07/11/2024 (Approximate), Expires: 07/11/2025 [facility] Area Work Phone: Comment on above: Expected: 07/11/2024 (Approximate), Expi res: 07/11/2025 Start: 06-23-2024 Orders Only 06/23/2024 Orders Only Valeria Hay [address] [place] [phone] Ira Lopez RN Encounter for test, result unknown Valeria Hay Comment on above: Encounter for test, result unk nown Start: 03-20-2024 End: 03-20-2025 Lutropin [Units/volume] in Serum or Plasma Luteinizing Hormone Lab STAT Female infertility Expected: 03/20/2024 (Approximate), Expires: 03/20/2025 [facility] Work Phone: Comment on above: Expected: 03/20/2024 (Approximate), Expi res: 03/20/2025 Start: 03-20-2024 End: 03-20-2025 Progesterone [Mass/volume] in Serum or Plasma Progesterone Lab STAT Female infertility Expected: 03/20/2024 (Approximate), Expires: 03/20/2025 [facility] Work Phone: Comment on above: Expected: 03/20/2024 (Approximate), Expi res: 03/20/2025 Start: 03-20-2024 End: 03-20-2024 Professional / ancillary services management 03/20/2024 8:00 AM EST Ancillary Procedure Valeria Simmonson [address] [place] [phone] Valeria Hay Start: 03-19-2024 End: 03-19-2024 Professional / ancillary services management 03/19/2024 8:30 AM EST Ancillary Procedure TERRY Hay [address] [address] Valeria Hay Start: 03-17-2024 End: 03-17-2025 Estradiol (E2) [Mass/volume] in Serum or Plasma Estradiol Lab STAT Female infertility Expected: 03/17/2024 (Approximate), Expires: 03/17/2025 [facility] Area Work Phone: Comment on above: Expected: 03/17/2024 (Approximate), Expi res: 03/17/2025 Start: 03-17-2024 End: 03-17-2025 Progesterone [Mass/volume] in Serum or Plasma [facility] Work Phone: Comment on above: Expected: 03/17/2024 (Approximate), Expi res: 03/17/2025 Start: 03-17-2024 End: 03-17-2024 Professional / ancillary services management 03/17/2024 6:45 AM EST Ancillary Procedure Valeria Simmonson [address] [place], [place] [phone] Valeria Hay Start: 03-15-2024 End: 03-15-2024 Professional / ancillary services management 03/15/2024 6:45 AM EST Ancillary Procedure Valeria Simmonson [address] [place], [place] [phone] Valeria Chanel Pavil[facility]a Start: 03-09-2024 End: 03-09-2024 Professional / ancillary services management 03/09/2024 7:15 AM EST Ancillary Procedure TERRY Simmonson [address] [place], [place] [phone] Valeria Chanel [facility] Start: 02-23-2024 End: 02-23-2024 Patient encounter procedure 02/23/2024 8:30 AM EDT Appointment Valeria Hay [address] [place] [phone] Juan Chavarria MD [address] [place] [address] [place] [address] Manuel[address]er Department of Anesthesiology and [place] [address] Valeria Hay Start: 02-21-2024 End: 02-21-2024 Professional / ancillary services management 02/21/2024 8:30 AM EDT Ancillary Procedure Valeria Purcellbladimir [address] [place] [address] Valeria Chanel [facility] Start: 02-20-2024 End: 02-17-2025 Estradiol (E2) [Mass/volume] in Serum or Plasma Estradiol Lab STAT Female infertility Expected: 02/20/2024 (Approximate), Expires: 02/17/2025 [facility] Area Work Phone: Comment on above: Expected: 02/20/2024 (Approximate), Expi res: 02/17/2025 Start: 02-20-2024 End: 02-17-2025 Progesterone [Mass/volume] in Serum or Plasma Progesterone Lab STAT Female infertility Expected: 02/20/2024 (Approximate), Expires: 02/17/2025 [facility] Work Phone: Comment on above: Expected: 02/20/2024 (Approximate), Expi res: 02/17/2025 Start: 02-20-2024 End: 02-20-2024 Professional / ancillary services management 02/20/2024 8:30 AM EDT Ancillary Procedure Valeria Purcellbladimir [address] [place] [address] Valeria Chanel Satnam Start: 02-18-2024 End: 02-18-2024 Professional / ancillary services management 02/18/2024 7:45 AM EDT Ancillary Procedure Valeria Chanel Satnam [address] [place] [address] Shawmarilia Chanel Satnam Start: 02-16-2024 End: 02-16-2024 Professional / ancillary services management 02/16/2024 7:15 AM EDT Ancillary Procedure [facility] [address] [place] [address] [facility] Start: 02-09-2024 End: 02-09-2024 Professional / ancillary services management 02/09/2024 7:15 AM EDT Ancillary Procedure [facility] [address] [facility] [address] [place] [address] [facility] Start: 01-14-2024 End: 01-14-2024 Patient encounter procedure 01/14/2024 11:00 AM EDT Office Visit [facility] [address] [place] [phone] Brandy Sheehan PA [address] [place] [address] Arrived [facility] Comment on above: Arrived Start: 01-03-2024 COVID-19 Vaccine ( season) COVID-19 Vaccine ( season) [facility] Start: 01-03-2024 COVID-19 Vaccine ( season) COVID-19 Vaccine () [facility] Start: 01-03-2024 Influenza vaccination Influenza Vaccine (#1) [facility] Start: 12-25-2023 End: 12-25-2023 Telemedicine consultation with patient 12/25/2023 9:00 AM EDT Telemedicine Clinical Support [facility] [address] [facility] [address] [place] [phone] Afua Julian I, [facility] [address] [place] [address] [facility] Start: 2023 End: 12-10-2024 Chlamydia trachomatis and Neisseria gonorrhoeae DNA [Identifier] in Unspecified specimen by EDELMIRA with probe detection [facility] Work Phone: Comment on above: Expected: 2023 (Approximate), Expi res: 12/10/2024 Start: 2023 End: 12-10-2024 Hepatitis B virus surface Ag [Presence] in Serum or Plasma by Immunoassay [facility] Work Phone: Comment on above: Expected: 2023 (Approximate), Expi res: 12/10/2024 Start: 2023 End: 12-10-2024 Hepatitis C virus Ab [Presence] in Serum [facility] Work Phone: Comment on above: Expected: 2023 (Approximate), Expi res: 12/10/2024 Start: 2023 End: 12-10-2024 HIV 1+2 Ab+HIV1 p24 Ag [Presence] in Serum or Plasma by Immunoassay [facility] Work Phone: Comment on above: Expected: 2023 (Approximate), Expi res: 12/10/2024 Start: 2023 End: 12-10-2024 Rubella virus IgG Ab [Units/volume] in Serum [facility] Area Work Phone: Comment on above: Expected: 2023 (Approximate), Expi res: 12/10/2024 Start: 2023 End: 12-10-2024 Treponema pallidum IgG+IgM Ab [Presence] in Serum by Immunoassay [facility] Work Phone: Comment on above: Expected: 2023 (Approximate), Expi res: 12/10/2024 Start: 2023 End: 12-10-2024 Varicella zoster virus IgG Ab [Presence] in Serum by Immunoassay [facility] Work Phone: Comment on above: Expected: 2023 (Approximate), Expi res: 12/10/2024 Start: 01-02-2023 COVID-19 Vaccine ( season) COVID-19 Vaccine ( season) [facility] Start: 12-21-2019 DTaP/Tdap/Td Vaccines (2 - Td or Tdap) DTaP/Tdap/Td Vaccines (2 - Td or Tdap) [facility] Start: 2018 Screening for malignant neoplasm of cervix [facility] Start: 2016 Hepatitis B Vaccines (1 of 3 - 19+ 3-dose series) Hepatitis B Vaccines (1 of 3 - 19+ 3-dose series) [facility] Start: 12-12-2015 Hepatitis C screening Hepatitis C Screening [facility] Start: 2012 HPV Vaccines (1 - 3-dose series) HPV Vaccines (1 - 3-dose series) [facility] Start: 03-14-2010 Varicella vaccination Varicella Vaccines (2 of 2 - 2-dose childhood series) [facility] Start: 01-17-2010 MMR Vaccines (1 of 1 - Standard series) MMR Vaccines (1 of 1 - Standard series) [facility] Start: 1997 HIV screening HIV Screening [facility] Start: 1997 Lipid panel Lipid Panel [facility] Start: 1997 Yearly Adult Physical Yearly Adult Physical [facility] Bacteria identified in Urine by Culture Urine culture Microbiology Routine Missed menses Ordered: 07/29/2024 [facility] Comment on above: Ordered: 07/29/2024 Bacteria identified in Urine by Culture Urine culture Microbiology Routine Leukocytes in urine Other microscopic hematuria Ordered: 12/19/2024 [facility] Work Phone: Comment on above: Ordered: 12/19/2024 CBC W Auto Different ial panel - Blood CBC and differential Lab Routine Missed menses , unspecified gestational age Ordered: 07/29/2024 [facility] Comment on above: Ordered: 07/29/2024 CHLAMYDIA TRACHOMATI S (GENITO/STI) CHLAMYDIA TRACHOMATIS (GENITO/STI) Lab Routine STD exposure Ordered: 09/06/2024 [facility] Comment on above: Ordered: 09/06/2024 End: 02-23-2024 Choriogonadotropin ( test) [Presence] in Urine POCT , urine manually resulted Point of Care Testing Routine Once (Lab) for 1 Occurrences starting 02/23/2024 until 02/23/2024 [facility] Work Phone: Comment on above: Once (Lab) for 1 Occurrences starting until 02/23/2024 End: 03-22-2024 Choriogonadotropin ( test) [Presence] in Urine POCT , urine manually resulted Point of Care Testing Routine Once (Lab) for 1 Occurrences starting 03/22/2024 until 03/22/2024 [facility] Work Phone: Comment on above: Once (Lab) for 1 Occurrences starting until 03/22/2024 End: 06-13-2024 Choriogonadotropin ( test) [Presence] in Urine POCT , urine manually resulted Point of Care Testing Routine Once (Lab) for 1 Occurrences starting 06/13/2024 until 06/13/2024 [facility] Work Phone: Comment on above: Once (Lab) for 1 Occurrences starting until 06/13/2024 Cytology Cervical or vaginal smear or scraping study Pap Smear Pathology and Cytology Routine Well woman exam with routine gynecological exam Ordered: 01/14/2024 [facility] Work Phone: Comment on above: Ordered: 01/14/2024 Hemoglobin A1c/Hemoglobin.total in Blood Hemoglobin A1c Lab Routine Missed menses , unspecified gestational age Ordered: 07/29/2024 [facility] Comment on above: Ordered: 07/29/2024 Hepatitis B virus abrams rface Ag [Presence] in Serum or Plasma by Immunoassay Hepatitis B surface antigen Lab Routine Missed menses , unspecified gestational age Ordered: 07/29/2024 [facility] Comment on above: Ordered: 07/29/2024 Hepatitis C virus Ab [Presence] in Serum or Plasma by Immunoassay Hepatitis C antibody Lab Routine Missed menses , unspecified gestational age Ordered: 07/29/2024 [facility] Comment on above: Ordered: 07/29/2024 HIV-1/HIV-2 antigen/antibody combination immunoassay HIV-1 and HIV-2 antibodies Lab Routine Missed menses , unspecified gestational age Ordered: 07/29/2024 [facility] Comment on above: Ordered: 07/29/2024 Neisseria gonorrhoea e DNA [Presence] in Unspecified specimen by EDELMIRA with probe detection Neisseria gonorrhea DNA probe, direct Lab Routine STD exposure Ordered: 09/06/2024 [facility] Comment on above: Ordered: 09/06/2024 Reagin Ab [Presence] in Serum by RPR RPR Lab Routine Missed menses , unspecified gestational age Ordered: 07/29/2024 [facility] Comment on above: Ordered: 07/29/2024 KELSY US Pelvis Limite d Follicles - Follicle Studies Performed KELSY US Pelvis Limited Follicles - Follicle Studies Performed Imaging Routine Female infertility 02/16/2024 7:17 AM EDT [facility] Work Phone: KELSY US Pelvis Limite d Follicles - Follicle Studies Performed KELSY US Pelvis Limited Follicles - Follicle Studies Performed Imaging Routine Female infertility 02/20/2024 9:06 AM EDT [facility] Work Phone: Rubella antibody, IgG Rubella an tibody, IgG Lab Routine Missed menses , unspecified gestational age Ordered: 07/29/2024 [facility] [employer] Comment on above: Ordered: 07/29/2024 SURESWAB(R) ADVANCED VAGINITIS PLUS, TMA SURESWAB(R) ADVANCED VAGINITIS PLUS, TMA Pathology and Cytology Routine STD exposure Ordered: 09/06/2024 [facility] [employer] Work Phone: Comment on above: Ordered: 09/06/2024 End: 01-28-2024 Surgical pathology study [facility] Work Phone: Comment on above: Once (Lab) for 1 Occurrences starting until 01/28/2024, 1 completed Once (Lab) for 1 Occ urrences starting 01/28/2024 until 01/28/2024 Immunizations Immunization Date Immunization Notes Care Provider Shahid mares 12-20-2009 meningococcal ACWY vaccine, unspecified formulation [facility] 12-20-2009 tetanus toxoid, reduced diphtheria toxoid, and acellular pertussis vaccine, adsorbed [facility] 12-20-2009 varicella virus vaccine [facility] NEGATED: Highlighted row has not occurred!04-06-2024 influenza virus vaccine, unspecified formulation [facility] NEGATED: Highlighted row has not occurred!06-26-2021 influenza virus vaccine, unspecified formulation Leigh [facility] NEGATED: Highlighted row has not occurred!06-26-2021 SARS-CoV-2 (COVID-19) Ad26 vaccine, recombinant Leigh Ann [facility] NEGATED: Highlighted row has not occurred!01-29-2021 influenza virus vaccine, unspecified formulation [facility] NEGATED: Highlighted row has not occurred!01-29-2021 SARS-CoV-2 (COVID-19) Ad26 vaccine, recombinant [facility] NEGATED: Highlighted row has not occurred!05-03-2019 influenza virus vaccine, live, attenuated, for intranasal use [facility] NEGATED: Highlighted row has not occurred!09-30-2018 influenza virus vaccine, unspecified formulation [facility] Payers Date Payer Category Payer Managed Care (Private) 1.2.8 [id number] 2022 Private Health Insurance [employer] [id number]. [id number] 2022 Unknown [id number]. 1.13.647.2. 7.3.967356.315 2022 Unknown [id number] 1997 Unknown [id number] 2.16.840.1.920315.3.579.2. 593 1997 Unknown [id number] 2.16.840.1.786109.3.579.2. 593 1997 Unknown [id number] 2.16.840.1.229278.3.579.2. 727 1997 Unknown [id number] 2.16840.1.051070.3.579.2. 727 1997 Unknown [id number] 2.16840.1.186080.3.579.2. 727 1997 Unknown [id number] 2.16840.1.673784.3.579.2. 727 1997 Unknown [id number] 2.16840.1.014572.3.579.2. 1243 1997 Unknown [id number] 2.16840.1.856211.3.579.2. 1243 1997 Unknown [id number] 2.16840.1.668191.3.579.2. 1243 1997 Unknown [id number] 2.16840.1.702695.3.579.2. 1245 1997 Unknown [id number] 2.16840.1.561912.3.579.2. 124 1997 Unknown [id number] 2.16840.1.219143.3.579.2. 1245 1997 Unknown [id number] 2.16.840.1.562442.3.579.2. 1245 1997 Unknown [id number] 2.16.840.1.567636.3.579.2. 124 1997 Unknown [id number] 2.16.840.1.943176.3.579.2. 1244 1997 Unknown [id number] 2.16.840.1.303841.3.579.2. 1244 1997 Unknown [id number] 2.16.840.1.961072.3.579.2. 1244 1997 Unknown [id number] 2.16.840.1.684802.3.579.2. 1244 1997 Unknown [id number] 2.16840.1.276120.3.579.2. 1244 1997 Unknown [id number] 2.16.840.1.939506.3.579.2. 1244 1997 Unknown [id number] 2.16840.1.976514.3.579.2. 1244 1997 Unknown [id number] 2.16840.1.062270.3.579.2. 1244 1997 Unknown [id number] 2.16840.1.116883.3.579.2. 1244 1997 Unknown [id number] 2.16.840.1.108597.3.579.2. 1244 1997 Unknown [id number] 2.16840.1.812935.3.579.2. 1244 1997 Unknown [id number] 2.16840.1.091294.3.579.2. 1244 1997 Unknown [id number] 2.16840.1.327777.3.579.2. 1244 1997 Unknown [id number] 2.16840.1.315826.3.579.2. 1244 1997 Unknown [id number] 2.16840.1.500798.3.579.2. 1244 1997 Unknown [id number] 2.16.840.1.474969.3.579.2. 1244 1997 Unknown [id number] 2.16.840.1.969008.3.579.2. 1244 1997 Unknown [id number] 2.16.840.1.648889.3.579.2. 1244 1997 Unknown [id number] 2.16840.1.496716.3.579.2. 1244 1997 Unknown [id number] 2.16840.1.721732.3.579.2. 1244 1997 Unknown [id number] 2.840.1.760598.3.579.2. 1244 1997 Unknown [id number] 2.840.1.192006.3.579.2. 1244 1997 Unknown [id number] 2.840.1.484461.3.579.2. 1244 1997 Unknown [id number] 2.840.1.851644.3.579.2. 1244 1997 Unknown [id number] 2.840.1.032871.3.579.2. 1244 1997 Unknown [id number] 2.840.1.710652.3.579.2. 1244 1997 Unknown [id number] 2.840.1.320412.3.579.2. 1244 1997 Unknown [id number] 2.840.1.836665.3.579.2. 1244 1997 Unknown [id number] 2.16840.1.089209.3.579.2. 1244 1997 Unknown [id number] 2.16840.1.826964.3.579.2. 1244 1997 Unknown [id number] 2.16840.1.564400.3.579.2. 1245 1997 Unknown [id number] 2.16.840.1.931322.3.579.2. 1245 1997 Unknown [id number] 2.16.840.1.855368.3.579.2. 1259 1997 Unknown [id number] 2.16.840.1.503340.3.579.2. 1259 1997 Unknown [id number] 2.16.840.1.904584.3.579.2. 1259 1997 Unknown [id number] 2.16.840.1.762123.3.579.2. 1259 1997 Unknown [id number] 2.16.840.1.690177.3.579.2. 1259 1997 Unknown [id number] 2.16.840.1.845486.3.579.2. 9 1997 Unknown [id number] 2.16.840.1.659907.3.579.2. 1259 1997 Unknown [id number] 2.16.840.1.022622.3.579.2. 1259 1997 Unknown [id number] 2.16.840.1.036872.3.579.2. 1259 1997 Unknown [id number] 2.16.840.1.610253.3.579.2. 9 1997 Unknown [id number] 2.16.840.1.937448.3.579.2. 1259 1997 Unknown [id number] 2.16.840.1.298754.3.579.2. 9 1997 Unknown [id number] 2.16.840.1.274867.3.579.2. 1259 1959 Unknown [id number] Social History Date Type Detail Facility Start: 07-24-2021 End: 03-05-2023 Tobacco smoking status Never smoked tobacco (finding) [facility] Tobacco smoking status Never [facility] Start: 01-28-2024 End: 07-29-2024 Sex Assigned At Female [facility] Start: 2023 Tobacco use and exposure Smokeless tobacco non-user [facility] Work Phone: Start: 01-28-2024 End: 06-23-2024 Alcoholic beverage intake Ex-drinker (finding) [facility] Work Phone: Start: 01-28-2024 End: 07-29-2024 History of Social function [facility] Work Phone: Start: 2023 Alcohol Comment Occassionally [facility] Work Phone: Start: 1997 Sex assigned at Not on file [facility] Work Phone: Start: 12-01-2023 End: 10-07-2024 Exposure to SARS-CoV-2 (event) Not sure [facility] Start: 02-23-2024 End: 01-31-2025 Alcoholic beverage intake Current drinker of alcohol (finding) [facility] Work Phone: Start: 03-05-2023 Alcohol Comment Beer 1-2 times per m [facility] Start: 12-18-2023 End: 12-28-2023 Exposure to SARS-CoV-2 (event) Unable to assess [facility] Start: 06-08-[address] [facility] hcare Medical Equipment Procedure Code Equipment Code Equipment Origin al Text Equipment Identifier Dates [id number] Start: 03-01-2024 End: 03-09-2024 Functional Status Date Assessment Result Facility 04-06-2024 Functional Status N/A [facility] 10-02-2023 Functional Status N/A [facility] 08-27-2023 Functional Status N/A [facility] 02-19-2023 Functional Status N/A [facility] Clinical Notes 07-24-2021 to 01-31-2025 Marilia Elder, MA - 01/31/2025 1:50 PM Nahomi Guerrero, MARGARITO - 01/16/2025 2:50 PM Megan Greer, RAEGAN - 01/03/2025 10:00 AM Max Barbosa, LYE MACHINE OPERATOR - 12/19/2024 10:00 AM [facility] Instructions Note Date & Type Note Facility [...] nursing note reviewed. Exam conducted with a hearing health technician present. Vitals: Estimated body mass index is 40.57 kg/m as calculated from the following: Height as of 09/17/22: 5' 3 . Weight as of this encounter: 229 lb. BP: 122/76 No LMP recorded. Patient is . ASSESSMENT & PLAN ICD-10-CM 1. Third trimester ([facility]) Z34.93 CULTURE, GROUP B STREP WITH SUSCEPTIBLITY CULTURE, GROUP B STREP WITH SUSCEPTIBLITY CANCELED: CULTURE, GROUP B STREP WITH SUSCEPTIBLITY 2. 35 weeks gestation of ([facility]) Z3A.35 POCT urinalysis dipstick manually resulted 3. [...] by Marilia Elder MA on behalf of: Yomaira Guerrero NP documented in this encounter [facility] 01-16-2025 History of Present illness Narrative Reason [...] PLAN ICD-10-CM 1. 33 weeks gestation of ([facility]) Z3A.33 POCT urinalysis dipstick manually resulted 2. Third trimester ([facility]) Z34.93 POCT urinalysis dipstick manually resulted 3. Group B streptococcal infection A49.1 4. resulting from in vitro fertilization in first trimester ([facility]) O09.811 Return OB: Patient presents today for [...] week for routine OB appointment. Documented by Yomaira Guerrero NP on behalf of: Layo Courtney DO documented in this encounter [facility] 01-03-2025 History of Present illness Narrative Reason [...] nursing note reviewed. Exam conducted with a hearing health technician present. Vitals: Estimated body mass index is 39.47 kg/m as calculated from the following: Height as of 09/17/22: 5' 3 . Weight as of this encounter: 222 lb 12.8 oz. BP: 118/74 No LMP recorded. Patient is . ASSESSMENT & PLAN ICD-10-CM 1. Third trimester ([facility]) Z34.93 POCT urinalysis dipstick manually resulted 2. 31 weeks gestation of ([facility]) Z3A.31 POCT urinalysis dipstick manually resulted Return [...] Layo Courtney DO documented in this encounter [facility] 12-19-2024 History of Present illness Narrative Reason [...] nursing note reviewed. Exam conducted with a hearing health technician present. Vitals: Estimated body mass index is 38.76 kg/m as calculated from the following: Height as of 09/17/22: 5' 3 . Weight as of this encounter: 218 lb 12.8 oz. BP: 116/70 No LMP recorded. Patient is . ASSESSMENT & PLAN ICD-10-CM 1. 29 weeks gestation of ([facility]) Z3A.29 POCT urinalysis dipstick manually resulted 2. Third trimester ([facility]) Z34.93 POCT urinalysis dipstick manually resulted 3. [...] Layo Courtney DO documented in this encounter [facility] 12-06-2024 History of Present illness Narrative Reason [...] PLAN ICD-10-CM 1. 27 weeks gestation of ([facility]) Z3A.27 POCT urinalysis dipstick manually resulted 2. Second trimester ([facility]) Z34.92 POCT urinalysis dipstick manually [...] Layo Courtney DO documented in this encounter [facility] 11-08-2024 History of Present illness Narrative Reason [...] ASSESSMENT & PLAN ICD-10-CM 1. Second trimester ([facility]) Z34.92 POCT urinalysis dipstick manually resulted 2. 26 weeks gestation of ([facility]) Z3A.26 POCT urinalysis dipstick manually resulted 3. [...] Layo Courtney DO documented in this encounter [facility] 10-17-2024 History of Present illness Narrative [...] nursing note reviewed. Exam conducted with a hearing health technician present. Vitals: Estimated body mass index is 35.52 kg/m as calculated from the following: Height as of 09/17/22: 5' 3 . Weight as of this encounter: 200 lb 8 oz. BP: 126/82 No LMP recorded. Patient is . ASSESSMENT & PLAN ICD-10-CM 1. Second trimester ([facility]) Z34.92 POCT urinalysis dipstick manually resulted 2. 20 weeks gestation of ([facility]) Z3A.20 Return OB: Patient presents today for [...] week for routine OB appointment. Documented by Yomaira Guerrero NP on behalf of: Layo Courtney DO documented in this encounter [facility] 10-11-2024 History of Present illness Narrative [...] Layo Courtney DO documented in this encounter [facility] 09-06-2024 History of Present illness Narrative [...] of: ORION Spence documented in this encounter [facility] 08-08-2024 History of Present illness Narrative [...] nursing note reviewed. Exam conducted with a hearing health technician present. Vitals: Estimated body mass index [...] week for routine OB appointment. Documented by Yomaira Guerrero NP on behalf of: Layo Courtney DO documented in this encounter [facility] 07-29-2024 History of Present illness Narrative [...] screen, urine; Future Nurse Note: Patient declined [place] [employer] to one Pt is an IVF [...] or undercooked meat, and stay away from [facility]. Patient has also been advised to not [...] Marilia Elder MA documented in this encounter [facility] 07-11-2024 History of Present illness Narrative [...] 07/11/2024 3:54 PM documented in this encounter [facility] Work Phone: 06-13-2024 History of Present [...] Preop diagnosis: Infertility Post op diagnosis: Same Gas Welder: none Depth: 7 cm Curve: anterior Distance [...] 06/13/24 11:24 AM documented in this encounter [facility] Work Phone: 06-13-2024 Hospital Discharge instructions Tisha Sparks RN - 06/13/2024 10:43 AM EST Images from the original note were not included. [facility] [address] [place] [address] Home Going Instructions after Embryo Transfer: After [...] in : Advil, Motrin, Ibuprofen, Aleve, Excedrin, Lula-Butler, Sudafed, and Pepto-Bismol. Avoid aspirin unless you [...] Sparks 10:43 AM documented in this encounter [facility] Work Phone: 06-06-2024 History of Present [...] further instructed. Message sent to front office help to schedule at 8:45 slot at [facility] for US and labs. ZOE FRANCIS on 06/06/24 at 1:12 PM. documented in this encounter [facility] Work Phone: 04-06-2024 Hospital Discharge instructions [...] provider. Document Revised: 09/09/2021 Document Reviewed: 09/09/2021 [employer] Patient Education 2023 [employer] Follow Up Care 03/25/2024 14:07:23 With:Mallory Judd Address: When:Within 6 Month(s) [facility] 03-22-2024 History of Present illness Narrative Associated Order(s): Egg Retrieval Pre-Procedure Diagnose(s): Encounter for assisted reproductive fertility cycle Post-Procedure Diagnose(s): Encounter for assisted reproductive fertility cycle Patient ID: Sydney Romero is a 28 y.o. female. Egg Retrieval Date/Time: 03/22/2024 9:39 AM Performed by: Juan Chavarria MD Authorized by: Donya Abernathy APRN-MEDICAL ASSISTING PROGRAM DIRECTOR Consent: Consent obtained: Verbal and written Consent [...] diagnosis: Female infertility Post op diagnosis: Same Gas Welder: Dr. Warren IV Fluids: 600 cc EBL: 5 cc UOP: Not recorded Specimen: Oocytes Complications: None Number of Oocytes right ovary: 16 Ovarian access (right): Easy Number of Oocytes left ovary: 9 Ovarian access (left): Easy Endometrial thickness: n/a Needle type: Single Additional notes: documented in this encounter [facility] Work Phone: 03-22-2024 Nurse Note Patient discharged to home in stable condition via wheelchair to RIDE HOME: Partner's car. Accompanied by RN. ABREU at time of discharge. Discharge instructions given and concerns addressed. Gisell Michel RN 03/22/24 11:08 AM [facility] Work Phone: 03-22-2024 Nurse Note Patient discharged to home in stable condition via wheelchair to RIDE HOME: Partner's car. Accompanied by RN. ABREU at time of discharge. Discharge instructions given and concerns addressed. Gisell Michel RN 03/22/24 11:08 AM documented in this encounter [facility] Work Phone: 03-22-2024 Hospital Discharge instructions Gisell Michel RN - 03/22/2024 8:45 AM EST Images from the original note were not included. [facility] [address] [place] [id number] Home Going Instructions after Egg Retrieval: Activity: [...] 2 weeks following your oocyte retrieval. Call [phone] to speak with a Physician or Nurse if you have any concerns. Gisell Michel 8:45 AM [facility] [address] [place], [place] IVF LAB EMBRYO UPDATE PROTOCOL The [...] biopsied and frozen. Gisell Michel 8:44 AM [facility] [address]. [place] [address] Frozen Embryo Transfer Instructions After your egg retrieval, follow up with your IVF nurse within 3-4 days Thursday-Thursday regarding the plan for your frozen embryo transfer (FET) cycle. Your IVF nurse will order and review with you the medications you will be using for the cycle. You will be sent an email from [facility] to fill out your Frozen Embryo Treatment [...] RN 8:44 AM documented in this encounter [facility] Work Phone: 03-20-2024 History of Present [...] Arrive 60 minutes prior to procedure at [facility]. Patient verbalizes understanding of plan and location of procedure. Patient scheduled to go to [facility] tomorrow for post trigger labs Krissy Yanes 03/20/2024 11:01 AM documented in this encounter [facility] Work Phone: 03-19-2024 History of Present [...] 03/19/24 11:02 AM documented in this encounter [facility] Work Phone: 03-17-2024 History of Present [...] 03/17/24 1:04 PM documented in this encounter [facility] Work Phone: 03-15-2024 History of Present [...] further questions. Transferred to the front office help to schedule appt for 03/17. Allyssa Robles 03/15/24 1:27 PM documented in this encounter [facility] Work Phone: 03-09-2024 History of Present [...] Yes; PGT-M Test Ready: No ; Company: [employer] PGT order scanned into [employer], confirmed by: LORI on Plan to freeze: [...] on 03/09 by delano On site at [facility] Additional details: Allyssa Robles 03/09/2024 7:50 AM TC to pt to confirm today's plan; LM; will send [facility] message. Allyssa Robles 03/09/24 2:02 PM Pt called back to confirm plan; Pt has all meds and all questions answered. She plans to purchase FET meds before the end of the year (they were ordered back in February) and will call [facility] to have them filled as she has met deductible and REECE needs a PA. Allyssa Robles 03/09/24 2:33 PM documented in this encounter [facility] Work Phone: 02-23-2024 Nurse Note Patient discharged to home in stable condition via wheelchair accompanied by this RN to RIDE HOME: Partner's car. Discharge instructions given and concerns addressed. Patient verbalizes understanding of all information provided and is agreeable. [facility] 02-23-2024 Nurse Note Patient discharged to home in stable condition via wheelchair accompanied by this RN to RIDE HOME: Partner's car. Discharge instructions given and concerns addressed. Patient verbalizes understanding of all information provided and is agreeable. Patient up to bathroom independently, no complaints of pain or dizziness, able to void without issue, reports scant amount of bleeding. documented in this encounter [facility] Work Phone: 02-23-2024 Nurse Note Patient up to bathroom independently, no complaints of pain or dizziness, able to void without issue, reports scant amount of bleeding. [facility] Work Phone: 02-23-2024 History of Present [...] diagnosis: Female infertility Post op diagnosis: Same Gas Welder: none IV Fluids: 500 cc EBL: 5 cc UOP: Not recorded Specimen: Oocytes Complications: None Number of Oocytes right ovary: 17 Ovarian acc ss (right): Easy Number of Oocytes left ovary: 13 Ovarian access (left): Easy Endometrial thickness: n/a Needle type: Single Additional notes: documented in this encounter [facility] Work Phone: 02-23-2024 Hospital Discharge instructions Donya Rosas RN - 02/23/2024 7:23 AM EDT Images from the original note were not included. [facility] [address]. [place] [id number] Home Going Instructions after Egg Retrieval: Activity: [...] 2 weeks following your oocyte retrieval. Call [phone] to speak with a Physician or Nurse if you have any concerns. DONYA ROSAS 7:23 AM [facility] [address]. [place], [place] IVF LAB EMBRYO UPDATE PROTOCOL The [...] biopsied and frozen. DONYA ROSAS 7:23 AM [facility] [address]. [place], [place] IVF LAB EMBRYO UPDATE PROTOCOL The [...] biopsied and frozen. DONYA ROSAS 7:23 AM [facility] [address]. [place] [address] Frozen Embryo Transfer Instructions After your egg retrieval, follow up with your IVF nurse within 3-4 days Thursday-Thursday regarding the plan for your frozen embryo transfer (FET) cycle. Your IVF nurse will order and review with you the medications you will be using for the cycle. You will be sent an email from [facility] to fill out your Frozen Embryo Treatment [...] RN 7:32 AM documented in this encounter [facility] Work Phone: 02-21-2024 History of Present [...] 02/21/2024 9:09 AM documented in this encounter [facility] Work Phone: 02-20-2024 History of Present [...] Beth Judge RN documented in this encounter [facility] Work Phone: 02-18-2024 History of Present [...] Beth Judge RN documented in this encounter [facility] Work Phone: 02-16-2024 History of Present [...] Will look into getting insulin syringes from [facility]. Team will contact patient later today with results and plan. Krissy Yanes 02/16/2024 7:27 AM LM with patient with plan to start Cetrotide today, drop FSH to 225 units and continue Menopur 75 units. Patient is already scheduled for 02/17 for repeat follicle scan and e2. Krissy Yanes 02/16/24 1:34 PM documented in this encounter [facility] Work Phone: 02-09-2024 History of Present [...] Sent: Yes; PGT-M Test Ready: No /A; Raiing: [employer] P[employer] order scanned into [employer], confirmed by: LORI on 02/09/2024 Plan to freeze: embryos [employer] forms/out waiver complete: Yes Does patient have medications onhand? Yes Pharmacy: [facility] Boarding pass signed off: Yes LORETTA on 02/05/2024 Date of Female STDs: 2023 Date of Male STDs: 2023 Medically complex on boarding pass: no If indicated, is PAT consult complete? N/A SPERM: partner Fresh with [employer] Backup Number of vials confirmed: 1 on 02/09/24 by LORETTA Additional details: Allyssa Nailsaney 02/09/2024 7:34 AM Beti Warren 02/09/24 12:44 PM TC to inge Degroot answered; confirmed plan for meds to start on 02/12 as per calendar and return on 02/15 as scheduled; no further questions. Allyssa Robles 02/09/24 1:16 PM documented in this encounter [facility] Work Phone: 01-28-2024 Nurse Note Patient discharged to home in stable condition via wheelchair to RIDE HOME: Partner's car. Discharge instructions given and concerns addressed. [facility] Work Phone: 01-28-2024 Nurse Note Patient discharged to home in stable condition via wheelchair to RIDE HOME: Partner's car. Discharge instructions given and concerns addressed. documented in this encounter [facility] Work Phone: 01-28-2024 History of Present illness Narrative IVF Procedure Area H&P Ms. Sydney Romero is a 28 y.o. F who presents for hysteroscopic polypectomy under anesthesia. Interval history reviewed and affirmed as up to date. MedHx: Past Medical History: Diagnosis Date Infertility, female SurgHx: Past Surgical History: Procedure Laterality Date KNEE SURGERY Right 2015 and 2017 TONSILLECTOMY 2008 Meds: Current Outpatient Medications on File Prior [...] no immediate complications documented in this encounter [facility] Work Phone: 01-28-2024 Hospital Discharge instructions Ira Lopez RN - 01/28/2024 8:20 AM EDT Images from the original note were not included. [facility] [address]. [place] [address] Home Going Instructions after Polypectomy: Activity: We [...] Lopez 8:20 AM documented in this encounter [facility] Work Phone: 01-14-2024 History of Present [...] nursing note reviewed. Exam conducted with a hearing health technician present. Vitals: Estimated body mass index [...] of: ORION Spence documented in this encounter [facility] 12-28-2023 History of Present illness Narrative [...] EVALUATION / TREATMENT Saw KEL[facility] physician in [facility] Dr. 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 female who presents with Infertility TTC x 2 years PRIOR EVALUATION / TREATMENT Saw KELSY physician in [place], IVF [facility] Dr. 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 Meyer [phone] Recommend repeat SA with 48-72 hours abstinence [...] 2023 8:52 AM documented in this encounter [facility] Work Phone: 2023 Instructions SMITH Mina - 2023 8:45 AM EDT Recommend Male Vitamins Discussed as follows: Co-Q10 200 mg daily L-Carnitine 200-500 mg daily Vitamin C 500 mg daily Recommend Consult with Dr. Meyer [phone] Recommend repeat SA with 48-72 hours abstinence Recommend Female Vitamins: vitamin Vitamin D (total of 2,000 international units daily) CoQ10 600 mg daily documented in this encounter [facility] Work Phone: 10-02-2023 Hospital Discharge instructions [...] and how much exercise you get. Take roig-usn-zeiurpz and prescription medicines only as told by [...] provider. Document Revised: 11/26/2021 Document Reviewed: 11/26/2021 [employer] Patient Education 2022 [employer] 10/02/2023 12:54:15 BMI for Adults BMI [...] numbers. This can be done either in [place] ([place] or metric measurements. Note that charts and online BMI calculators are available to help you find your BMI quickly and easily without having to do these calculations yourself. To calculate your BMI in [place] ([place] measurements: 1.Measure your weight in pounds [...] Centers for Disease Control and Prevention: www.cdc.gov [place] [employer]: www.heart.org National Heart, Lung, and Blood [place]: www.nhlbi.nih.gov Summary Body mass index (BMI) is a number that is calculated from a person's weight and height. BMI may help estimate how much of a person's weight is composed of fat. BMI can help identify those who may be at higher risk for certain medical problems. BMI can be measured using Pakistani measurements or metric measurements. BMI charts are used to identify whether you are underweight, normal weight, overweight, or obese. This information is not intended to replace advice given to you by your health care provider. Make sure you discuss any questions you have with your health care provider. Document Revised: 01/11/2020 Document Reviewed: 11/18/2019 [employer] Patient Education 2022 [employer]. 10/02/2023 12:54:13 Migraine Headache Migraine Headache A [...] Follow these instructions at home: Medicines Take fyxp-hgf-xgpszqj and prescription medicines only as told by your health care provider. Ask your health care provider if the medicine prescribed to you: ?Requires you to avoid driving or using heavy machinery. ?Can cause constipation. You may need to take these actions to prevent or treat constipation: ?Drink enough fluid to keep your urine pale yellow. ?Take ttnz-bpc-loizrrj or prescription medicines. ?Eat foods that are [...] provider. Document Revised: 08/12/2019 Document Reviewed: 06/02/2019 [employer] Patient Education 2022 [employer] 10/02/2023 12:54:11 Form - Headache Record [...] provider. Document Revised: 09/18/2021 Document Reviewed: 09/18/2021 [employer] Patient Education 2022 [employer] 10/02/2023 12:54:08 Eczema Eczema Eczema refers [...] these instructions at home: Take or apply pztn-tua-vlonfnb and prescription medicines only as told by your health care provider. Use creams or ointments to moisturize your skin. Do not use lotions. Learn what triggers or irritates your symptoms so you can avoid these things. Treat symptom flare-ups quickly. Do not scratch your skin. This can make your rash worse. Keep all follow-up visits. This is important. Where to find more information [place] [employer]: aad.org National Eczema Association: [...] provider. Document Revised: 01/28/2021 Document Reviewed: 01/28/2021 [employer] Patient Education 2022 [employer]. 10/02/2023 12:54:06 BMI for Adults BMI for [...] numbers. This can be done either in [place] ([place] or metric measurements. Note that charts and online BMI calculators are available to help you find your BMI quickly and easily without having to do these calculations yourself. To calculate your BMI in [place] ([place] measurements: 1.Measure your weight in pounds [...] Centers for Disease Control and Prevention: www.cdc.gov [place] [employer]: www.heart.org National Heart, Lung, and Blood [place]: www.nhlbi.nih.gov Summary Body mass index (BMI) is a number that is calculated from a person's weight and height. BMI may help estimate how much of a person's weight is composed of fat. BMI can help identify those who may be at higher risk for certain medical problems. BMI can be measured using [place] measurements or metric measurements. BMI charts are used to identify whether you are underweight, normal weight, overweight, or obese. This information is not intended to replace advice given to you by your health care provider. Make sure you discuss any questions you have with your health care provider. Document Revised: 01/11/2020 Document Reviewed: 11/18/2019 [employer] Patient Education 2022 [employer]. Follow Up Care 09/22/2023 13:18:17 With:Princess Dumont FAM, MED Address: [address], [facility] A [address] [address]- Business (1) When:07/08/2023 Comments:for f/u [facility] 08-27-2023 Hospital Discharge [...] 1.Identify the foods that contain carbohydrates: Rice. [place]. Milk. Strawberries. 2.Calculate how many servings you [...] and snacks. Where to find more information [place] [employer] Association: diabetes.org Centers for Disease Control [...] provider. Document Revised: 11/21/2020 Document Reviewed: 11/21/2020 [employer] Patient Education 2022 [employer] 08/27/2023 19:11:56 Calorie Counting for Weight [...] provider. Document Revised: 05/31/2020 Document Reviewed: 05/31/2020 [employer] Patient Education 2022 [employer]. 08/27/2023 19:11:54 Exercising to Lose Weight Exercising [...] care provider or diet and nutrition services aide (dietitian). This may include: ?Eating fewer calories. [...] provider. Document Revised: 06/16/2021 Document Reviewed: 06/16/2021 [employer] Patient Education 2022 [employer]. 08/27/2023 19:11:53 BMI for Adults BMI for [...] numbers. This can be done either in [place] ([place] or metric measurements. Note that charts and online BMI calculators are available to help you find your BMI quickly and easily without having to do these calculations yourself. To calculate your BMI in [place] ([place] measurements: 1.Measure your weight in pounds [...] Centers for Disease Control and Prevention: www.cdc.gov [place] [employer]: www.heart.org National Heart, Lung, and Blood [place]: www.nhlbi.nih.gov Summary Body mass index (BMI) is a number that is calculated from a person's weight and height. BMI may help estimate how much of a person's weight is composed of fat. BMI can help identify those who may be at higher risk for certain medical problems. BMI can be measured using Pakistani measurements or metric measurements. BMI charts are used to identify whether you are underweight, normal weight, overweight, or obese. This information is not intended to replace advice given to you by your health care provider. Make sure you discuss any questions you have with your health care provider. Document Revised: 01/11/2020 Document Reviewed: 11/18/2019 [employer] Patient Education 2022 [employer] 08/27/2023 19:11:48 Musculoskeletal Pain Musculoskeletal Pain [...] mouth or applied to the skin. Take qfkw-ayh-btidmdv and prescription medicines only as told by [...] provider. Document Revised: 08/23/2020 Document Reviewed: 08/01/2020 [employer] Patient Education 2022 [employer]. 08/27/2023 19:05:09 Cervicogenic Headache Cervicogenic Headache In [...] includes your primary health care provider, a auto customize painter, a neurologist, and a physical therapist. Follow these instructions at home: Take umsv-uux-qyuwfkp and prescription medicines only as told by [...] includes your primary health care provider, a auto customize painter, a neurologist, and a physical therapist. This information is not intended to replace advice given to you by your health care provider. Make sure you discuss any questions you have with your health care provider. Document Revised: 10/24/2021 Document Reviewed: 10/24/2021 [employer] Patient Education 2022 [employer]. 08/27/2023 19:05:07 Form - Headache Record Form [...] provider. Document Revised: 09/18/2021 Document Reviewed: 09/18/2021 [employer] Patient Education 2022 [employer] 08/27/2023 19:05:07 Chronic Migraine Headache Chronic [...] Follow these instructions at home: Medicines Take wvxo-uoq-rpgrdgo and prescription medicines only as told by [...] for Headache and Migraine Patients (CHAMP): headachemigraine.org [place] Migraine Foundation: americanmigrainefoundation.org National Headache Foundation: headaches.org [...] provider. Document Revised: 06/06/2020 Document Reviewed: 06/06/2020 [employer] Patient Education 2022 [employer]. 08/27/2023 19:05:03 BMI for Adults BMI for [...] numbers. This can be done either in [place] ([place] or metric measurements. Note that charts and online BMI calculators are available to help you find your BMI quickly and easily without having to do these calculations yourself. To calculate your BMI in [place] ([place] measurements: 1.Measure your weight in pounds [...] Centers for Disease Control and Prevention: www.cdc.gov [place] [employer]: www.heart.org National Heart, Lung, and Blood [place]: www.nhlbi.nih.gov Summary Body mass index (BMI) is a number that is calculated from a person's weight and height. BMI may help estimate how much of a person's weight is composed of fat. BMI can help identify those who may be at higher risk for certain medical problems. BMI can be measured using Pakistani measurements or metric measurements. BMI charts are used to identify whether you are underweight, normal weight, overweight, or obese. This information is not intended to replace advice given to you by your health care provider. Make sure you discuss any questions you have with your health care provider. Document Revised: 01/11/2020 Document Reviewed: 11/18/2019 [employer] Patient Education 2022 [employer]. 08/27/2023 19:05:01 Health Maintenance, Female Health Maintenance, [...] provider. Document Revised: 09/09/2021 Document Reviewed: 09/09/2021 [employer] Patient Education 2022 [employer]. Follow Up Care 08/17/2023 08:42:02 With:Dionte MARI, Princess Pickard [facility] Address: [address] [place] [address] [place] [phone]- When:Within 6 Week(s) Comments:weight loss and headaches [facility] 02-19-2023 Evaluation + Plan note Future Scheduled TestsU Protein/Creat Ratio 02/19/23HgbA1c 02/19/23Microalbumin Level Urine 02/19/23TSH With T4fr Reflex 02/19/23Vitamin D 25 Hydroxy 02/19/23CBC w/ Auto Diff 02/19/23Comprehensive Metabolic Panel 02/19/23Lipid Panel 02/19/23XR Spine Cervical 4 or 5 Views 02/19/23 [facility] 02-19-2023 Hospital Discharge [...] includes your primary health care provider, a auto customize painter, a neurologist, and a physical therapist. Follow these instructions at home: Take ujgb-fmg-wabnkhi and prescription medicines only as told by [...] includes your primary health care provider, a auto customize painter, a neurologist, and a physical therapist. This information is not intended to replace advice given to you by your health care provider. Make sure you discuss any questions you have with your health care provider. Document Revised: 10/24/2021 Document Reviewed: 10/24/2021 [employer] Patient Education 2022 [employer]. 02/19/2023 08:34:09 Migraine Headache Migraine Headache A [...] Follow these instructions at home: Medicines Take oell-rtw-htzhkas and prescription medicines only as told by your health care provider. Ask your health care provider if the medicine prescribed to you: ?Requires you to avoid driving or using heavy machinery. ?Can cause constipation. You may need to take these actions to prevent or treat constipation: ?Drink enough fluid to keep your urine pale yellow. ?Take vvpu-dya-yirxpdy or prescription medicines. ?Eat foods that are [...] provider. Document Revised: 08/12/2019 Document Reviewed: 06/02/2019 [employer] Patient Education 2022 [employer] 02/19/2023 08:34:03 Form - Headache Record [...] provider. Document Revised: 09/18/2021 Document Reviewed: 09/18/2021 [employer] Patient Education 2022 [employer] 02/19/2023 01:02:45 General Headache Without Cause [...] help with your condition: Managing pain Take fpjc-jbl-ontapmq and prescription medicines only as told by [...] provider. Document Revised: 09/18/2021 Document Reviewed: 09/18/2021 [employer] Patient Education 2022 [employer] 02/19/2023 01:02:42 Form - Headache Record [...] includes your primary health care provider, a auto customize painter, a neurologist, and a physical therapist. Follow these instructions at home: Take yikx-xnc-ughekxo and prescription medicines only as told by [...] includes your primary health care provider, a auto customize painter, a neurologist, and a physical therapist. This information is not intended to replace advice given to you by your health care provider. Make sure you discuss any questions you have with your health care provider. Document Revised: 10/24/2021 Document Reviewed: 10/24/2021 [employer] Patient Education 2022 [employer]. 02/19/2023 01:02:35 Chronic Migraine Headache Chronic Migraine [...] Follow these instructions at home: Medicines Take wkha-kgw-abukzed and prescription medicines only as told by [...] for Headache and Migraine Patients (CHAMP): headachemigraine.org [place] [employer] Foundation: americanmigrainefoundation.org National Headache Foundation: headaches.org [...] provider. Document Revised: 06/06/2020 Document Reviewed: 06/06/2020 [employer] Patient Education 2022 [employer]. Follow Up Care 02/17/2023 08:10:14 With:Princess Dumont FAM, MED Address: [address], [address] [place] [address]- When:Within 1 Month(s) Comments:headaches. neck pain With:Princess Dumont FAM, MED Address: [address], [address] [facility] [address] [place] [address]- When:Within 1 Year(s) Comments:annual wellness, anxiety/ depression [facility] 07-24-2021 Hospital Discharge [...] height. This can be done either in [place] ([place] or metric measurements. Note that charts are available to help you find your BMI quickly and easily without having to do these calculations yourself. To calculate your BMI in [place] ([place] measurements, your health care provider will: [...] medical problems. BMI can be measured using Pakistani measurements or metric measurements. To interpret your [...] 12/30/2004 Document Revised: 04/02/2018 Document Reviewed: 03/03/2018 [employer] Patient Education 2020 [employer]. 07/24/2021 17:16:58 Health Maintenance, Female Health Maintenance, [...] 11/03/2011 Document Revised: 04/13/2019 Document Reviewed: 04/13/2019 [employer] Patient Education [employer]. Follow Up Care 06/26/2021 18:00:45 With:Leig hAnn Covington CNP Address: When: only if needed [facility] Evaluation + Plan note Future Appointments Appointment Date:10/03/2021 01:00:00 PM Scheduled Provider:Naya ABDI Location:[facility] Appointment Type:[facility] Evaluation + Plan note Future Appointments Appointment Date:03/25/2023 07:00:00 AM Scheduled Provider:Princess Dumont Location:[facility] Appointment Type: Open Future Scheduled TestsU Protein/Creat Ratio 02/19/23HgbA1c 02/19/23Microalbumin Level Urine 02/19/23TSH With T4fr Reflex 02/19/23Vitamin D 25 Hydroxy 02/19/23CBC w/ Auto Diff 02/19/23Comprehensive Metabolic Panel 02/19/23Lipid Panel 02/19/23XR Spine Cervical 4 or 5 Views 02/19/23 [facility] Evaluation + Plan note Future Appointments Appointment Date:10/21/2023 07:20:00 AM Scheduled Provider:Princess Dumont Location:[facility] Appointment Type: Open Future Scheduled TestsTSH With T4fr Reflex 02/19/23Vitamin D 25 Hydroxy 02/19/23CBC w/ Auto Diff 02/19/23Comprehensive Metabolic Panel 02/19/23Lipid Panel 02/19/23XR Spine Cervical 4 or 5 Views 02/19/23 [facility] Evaluation + Plan note Future Appointments Appointment Date:10/05/2024 07:00:00 AM Scheduled Provider:Mallory Judd Location:[facility] Appointment Type: Open [facility] Evaluation note Diagnosis Endometrial polyp Polyp of corpus uteri documented in this encounter [facility] Work Phone: Evaluation note* Diagnosis Pre-procedure lab exam Pre-procedural laboratory examination Female infertility Female infertility of unspecified origin documented in this encounter [facility] Work Phone: Evaluation note* Diagnosis Female infertility Female infertility of unspecified origin documented in this encounter [facility] Work Phone: Evaluation note* Diagnosis Female infertility Female infertility of unspecified origin documented in this encounter [facility] Work Phone: Evaluation note* Diagnosis Encounter for assisted reproductive fertility cycle Encounter for assisted reproductive fertility procedure cycle documented in this encounter [facility] Work Phone: Evaluation note* Diagnosis Female infertility Female infertility of unspecified origin Pre-procedure lab exam Pre-procedural laboratory examination documented in this encounter [facility] Work Phone: Evaluation note* Diagnosis Female infertility Female infertility of unspecified origin documented in this encounter [facility] Work Phone: Evaluation note* Diagnosis Female infertility Female infertility of unspecified origin documented in this encounter [facility] Work Phone: [phone] note* Diagnosis Female infertility Female infertility of unspecified origin documented in this encounter [facility] Work Phone: [phone] note* Diagnosis Encounter for assisted reproductive fertility cycle Encounter for assisted reproductive fertility procedure cycle documented in this encounter [facility] Work Phone: [phone] note* Diagnosis Encounter for assisted reproductive fertility cycle Encounter for assisted reproductive fertility procedure cycle documented in this encounter [facility] Work Phone: [phone] note* Diagnosis Well woman exam with routine gynecological exam Routine gynecological examination documented in this encounter [facility] HealthcareEvaluation note* Diagnosis Encounter for screening for other viral diseases- Primary Encounter for Rh blood typing Encounter for blood typing Screening for STDs (sexually transmitted diseases) Screening examination for venereal disease Genetic screening Other genetic screening Fertility testing Female infertility associated with male factors Female infertility of other specified origin documented in this encounter [facility] Work Phone: [phone] note* Diagnosis Fertility testing [Z31.41]- Primary Fertility testing 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 [Z31.81, N97.8] documented in this encounter [facility] Work Phone: [phone] note* Diagnosis Endometrial polyp Polyp of corpus uteri documented in this encounter [facility] Work Phone: [phone] note* Diagnosis Female infertility Female infertility of unspecified origin documented in this encounter [facility] Work Phone: [phone] note* Diagnosis Encounter for assisted reproductive fertility cycle Encounter for assisted reproductive fertility procedure cycle documented in this encounter [facility] Work Phone: [phone] note* Diagnosis Encounter for assisted reproductive fertility cycle Encounter for assisted reproductive fertility procedure cycle Encounter for test, result unknown documented in this encounter [facility] Work Phone: [phone] note* Diagnosis Encounter to determine viability of , single or unspecified fetus documented in this encounter [facility] Work Phone: Evaluation note* Diagnosis Missed menses 9 weeks gestation of , unspecified gestational age Encounter for supervision of normal first in first trimester documented in this encounter [facility] HealthcareEvaluation note* Diagnosis 10 weeks gestation of First trimester state, incidental documented in this encounter [facility]* Diagnosis STD exposure Second trimester state, incidental 14 weeks gestation of Screening, , for anatomic survey Encounter for anatomic survey documented in this encounter [facility] HealthcareEvaluation note* Diagnosis (HHS-HCC) documented in this encounter [facility] Work Phone: Evaluation note* Diagnosis Second trimester state, incidental 19 weeks gestation of Pruritus Unspecified pruritic disorder documented in this encounter [facility] HealthcareEvaluation note* Diagnosis Acute bilateral low back pain without sciatica- Primary Second trimester (HHS-HCC) state, incidental 20 weeks gestation of (HHS-HCC) documented in this encounter [facility] HealthcareEvaluation note* Diagnosis Second trimester (HHS-HCC) state, incidental 26 weeks gestation of (HHS-HCC) Diabetes mellitus screening Screening for diabetes mellitus documented in this encounter [facility]* Diagnosis 27 weeks gestation of (HHS-HCC) Second trimester (HHS-HCC) state, incidental documented in this encounter [facility] HealthcareEvaluation note* Diagnosis 29 weeks gestation [...] (HHS-HCC) state, incidental 35 weeks gestation of (HHS-HCC) Encounter for in vitro fertilization Encounter for assisted reproductive fertility procedure cycle documented [facility] this encounter [facility] Narrative No data available for this section [facility] Hospital Discharge instructions No data available for this section [facility] Progress note No data available for this section [facility] Reason for referral (narrative)* Consultation (Routine) - Authorized Specialty Diagnoses / Procedures Referred By Contac t Referred To Contact Genetics Diagnoses Genetic screening Trish Thorpe, HANDLE LATHE OPERATOR-MEDICAL ASSISTING PROGRAM DIRECTOR [address] [place] [address] Referral ID Status Reason Start Date Expiration Date Visits Requested Visits Authorized [id number] Authorized Specialty Services Required 2023 12/10/2024 1 1 Electronically signed by Trish Thorpe HANDLE LATHE OPERATOR-MEDICAL ASSISTING PROGRAM DIRECTOR at 2023 9:25 AM EDT [facility] Work Phone: reason for visit Narrative* Imaging (Routine) - Authorized Specialty Diagnoses / Procedures Referred By Contac t Referred To Contact Radiology Diagnoses Female infertility Procedures KELSY US Pelvis Limited Follicles - Follicle Studies Performed America Quintanilla HANDLE LATHE OPERATOR-MEDICAL ASSISTING PROGRAM DIRECTOR [address] [place] [address] Phone: tel: fax: Referral ID Status Reason Start Date Expiration Date Visits Requested Visits Authorized [id number] Authorized Perform Procedure 02/02/2024 02/01/2025 8 8 [facility] Work Phone: Relaao for visit Narrative* Imaging (Routine) - Pending Review Specialty Diagnoses / Procedures Referred By Contac t Referred To Contact Radiology Diagnoses Female infertility Procedures KELSY US Pelvis Limited Follicles - Follicle Studies Performed America Quintanilla HANDLE LATHE OPERATOR-MEDICAL ASSISTING PROGRAM DIRECTOR [address] [place] [address] Phone: tel: fax: Referral ID Status Reason Start Date Expiration Date Visits Requested Visits Authorized [id number] Pending Review Perform Procedure 02/02/2024 02/01/2025 8 8 [facility] Work Phone: reason for visit Narrative* Procedure (Routine) - Authorized Specialty Diagnoses / Procedures Referred By Alejandro t Referred To Contact Reproductive Endocrinology and Infertility Diagnoses Encounter for assisted reproductive fertility cycle Procedures Egg Retrieval CA FOLLICLE PUNCTURE OOCYTE RETRIEVAL ANY METHOD CHG US GUIDANCE ASPIRATION OVA IMG S&I CHG OOCYTE ID FROM FOLLICULAR FLU CHG BX OOCYTE POLR BDY/AMBER BLST MICROTQ <= 5 AMBER CHG BX OOCYTE MICROTQ >5 AMBER CHG UNLISTED MOLECULAR PATHOLOGY PROCEDURE CHG CYTOGENETICS&MOLEC CYTOGENETICS INTERP&REP Beth Warren MD [address] [place] [address] Phone: tel: fax: Referral ID Status Reason Start Date Expiration Date V isits Requested Visits Authorized [id number] Authorized 01/27/2024 01/26/2025 1 1 [facility] Work Phone: reason for visit Narrative* Imaging (Routine) - Authorized Specialty Diagnoses / Procedures Referred By Alejandro t Referred To Contact Radiology Diagnoses Female infertility Procedures KELSY US Pelvis Limited Follicles - Follicle Studies Performed Donya Abernathy, HANDLE LATHE OPERATOR-MEDICAL ASSISTING PROGRAM DIRECTOR [address] [facility], [address], [place] [address] Phone: tel: fax: Referral ID Status Reason Start Date Expiration Date Visits Requested Visits Authorized [id number] Authorized Perform Procedure 4 03/01/2025 8 8 [facility] Work Phone: reason for visit Narrative* Procedure (Routine) - Authorized Specialty Diagnoses / Procedures Referred By Alejandro t Referred To Contact Reproductive Endocrinology and Infertility Diagnoses Encounter for assisted reproductive fertility cycle Procedures Egg Retrieval CA FOLLICLE PUNCTURE OOCYTE RETRIEVAL ANY METHOD CHG US GUIDANCE ASPIRATION OVA IMG S&I CHG OOCYTE ID FROM FOLLICULAR FLU CHG BX OOCYTE POLR BDY/AMEBR BLST MICROTQ <= 5 AMBER CHG BX OOCYTE MICROTQ >5 AMBER CHG UNLISTED MOLECULAR PATHOLOGY PROCEDURE CHG CYTOGENETICS&MOLEC CYTOGENETICS INTERP&REP Donya Abernathy, HANDLE LATHE OPERATOR-MEDICAL ASSISTING PROGRAM DIRECTOR [address] [facility] [place], [facility] [address] [place] [address] Phone: tel: fax: Referral ID Status Reason Start Date Expiration Date V isits Requested Visits Authorized [id number] Authorized 03/01/2024 03/01/2025 1 0 [facility] Work Phone: Renvgl for visit Narrative* Imaging (Routine) - Authorized Specialty Diagnoses / Procedures Referred By Contac t Referred To Contact Radiology Diagnoses Female infertility Procedures KELSY US Endometrial Lining Check Donya Abernathy, HANDLE LATHE OPERATOR-MEDICAL ASSISTING PROGRAM DIRECTOR [address] [facility], [place], [facility] [address] [place] [address] Phone: tel: fax: Referral ID Status Reason Start Date Expiration Date Visits Requested Visits Authorized [id number] Authorized Perform Procedure 02/23/2025 5 5 [facility] Work Phone: reason for visit Narrative* Procedure (Routine) - Authorized Specialty Diagnoses / Procedures Referred By Nateac t Referred To Contact Reproductive Endocrinology and Infertility Diagnoses Encounter for assisted reproductive fertility cycle Procedures Embryo Transfer CA EMBRYO TRANSFER INTRAUTERINE CHG ULTRASONIC GUIDANCE INTRAOPERATIVE CHG THAWING CRYOPRESERVED EMBRYO CHG ASSTD EMBRYO HATCHING MICROTQS ANY METH CHG PREPJ EMBRYO TR Juan Chavarria MD [address] [place], [address] [address] Phone: tel: fax: Referral ID Status Reason Start Date Expiration Date V isits Requested Visits Authorized [id number] Authorized 06/10/2024 06/10/2025 1 1 [facility] Work Phone: reason for visit Narrative* Imaging (Routine) - Authorized Specialty Diagnoses / Procedures Referred By Contac t Referred To Contact Radiology Diagnoses ([facility]) Procedures US OB detail anatomy Layo Courtney, [address] [facility] [address], [place] [address] Phone: tel: fax: Referral ID Status Reason Start Date Expiration Date Visits Requested Visits Authorized [id number] Authorized Perform Procedure 08/15/2024 08/15/2025 1 1 [facility] Work Phone: Summary Purpose Family History [...] polyp Procedures Polypectomy Juan Chavarria MD [address] [facility] [address], [facility] [address] [place] [address] [address] [place] [address] Referral ID Status Reason Start Date Expiration Date V isits Requested Visits Authorized [id number] Authorized 01/25/2024 01/24/2025 1 1 Additional Source Comments INFORMATION SOURCE (unrecogn ized section and content) DATE CREATED AUTHOR 08/01/2022 [facility] DATE CREATED AUTHOR AUTHOR'S ORGANIZ ATION 04/04/2024 [facility] DATE CREATED AUTHOR AUTHOR'S ORGANIZ ATION 06/15/2024 [facility] DATE CREATED AUTHOR AUTHOR'S ORGANIZ ATION 07/02/2024 [facility] DATE CREATED AUTHOR AUTHOR'S ORGANIZ ATION 07/14/2024 [facility] DATE CREATED AUTHOR AUTHOR'S ORGANIZ ATION 10/11/2024 [facility] DATE CREATED AUTHOR AUTHOR'S ORGANIZ ATION 02/06/2025 [facility] EPIC Patient Care team informatio n (unrecognized section and content) [employer] Generator Brush Maker Relationship Specialty Start Date End Date Allyssa Robles RN Registered Nurse Reproductive Endocrinology and Infertility 12/25/23 [employer] And Generator Brush Maker Relationship Specialty Start Date End Date Allyssa Robles RN Registered Nurse Reproductive Endocrinology and Infertility 12/25/23 Motor And Generator Brush Maker Relationship Specialty Start Date End Date Allyssa Robles RN Registered Nurse Reproductive Endocrinology and Infertility 12/25/23 Motor And Generator Brush Maker Relationship Specialty Start Date End Date Allyssa Robles RN Registered Nurse Reproductive Endocrinology and Infertility 12/25/23 Motor And Generator Brush Maker Relationship Specialty Start Date End Date Allyssa Robles RN Registered Nurse Reproductive Endocrinology and Infertility 12/25/23 Motor And Generator Brush Maker Relationship Specialty Start Date End Date Allyssa Robles RN Registered Nurse Reproductive Endocrinology and Infertility 12/25/23 Motor And Generator Brush Maker Relationship Specialty Start Date End Date Allyssa Robles RN Registered Nurse Reproductive Endocrinology and Infertility 12/25/23 Motor And Generator Brush Maker Relationship Specialty Start Date End Date Allyssa Robles RN Registered Nurse Reproductive Endocrinology and Infertility 12/25/23 Motor And Generator Brush Maker Relationship Specialty Start Date End Date Allyssa Robles RN Registered Nurse Reproductive Endocrinology and Infertility 12/25/23 Motor And Generator Brush Maker Relationship Specialty Start Date End Date Ginger Torres LPN Licensed Practical Nurse 12/10/23 Motor And Generator Brush Maker Relationship Specialty Start Date End Date Allyssa Robles RN Registered Nurse Reproductive Endocrinology and Infertility 12/25/23 Motor And Generator Brush Maker Relationship Specialty Start Date End Date Allyssa Robles RN Registered Nurse Reproductive Endocrinology and Infertility 12/25/23 Motor And Generator Brush Maker Relationship Specialty Start Date End Date Allyssa Robles RN Registered Nurse Reproductive Endocrinology and Infertility 12/25/23 Motor And Generator Brush Maker Relationship Specialty Start Date End Date Allyssa Robles RN Registered Nurse Reproductive Endocrinology and Infertility 12/25/23 Motor And Generator Brush Maker Relationship Specialty Start Date End Date Allyssa Robles RN Registered Nurse Reproductive Endocrinology and Infertility 12/25/23 Reason for Visit (unrecogniz ed section and content) Specialty Diagnoses / Procedures Referred By Alejandro hyatt Referred To Contact Diagnoses Endometrial polyp Procedures Polypectomy Juan Chavarria MD [address], [address] [address] [address] [place] [address] Referral ID Status Reason Start Date Expiration Date V isits Requested Visits Authorized [id number] Authorized 01/25/2024 01/24/2025 1 1 Specialty Diagnoses / Procedures Referred By Contac t Referred To Contact Radiology Diagnoses Female infertility Procedures KELSY US Pelvis Limited Follicles - Follicle Studies Performed America Quintanilla, HANDLE LATHE OPERATOR-MEDICAL ASSISTING PROGRAM DIRECTOR [address] [place] [id number] Referral ID Status Reason Start Date Expiration Date Visits Requested Visits Authorized [id number] Authorized Perform Procedure 02/02/2024 02/01/2025 8 8 [...] BE BASED ON THE PRIMARY CLINICAL RECORDS. [facility] [employer] provides no warranty or guarantee of the accuracy or completeness of information in this document.
[2025-02-07 15:11] VITALS: BP 117/78; PULSE 100
== END 2025-02-07 16:00 | disposition home or self-care (01) ==
LOC: US 14:29 → FBC 14:39
PROVIDERS: Visit Provider Obstetrics & Gynecology
DX: O26.893 Other specified pregnancy related conditions, third trimester (principal); O09.813 Supervision of pregnancy resulting from assisted reproductive technology, third trimester
CPT/HCPCS: 76818

== ENCOUNTER 2025-02-10 15:58 | Outpatient (OUT) | payer OTHER, SELFPAY ==
[2025-02-10 16:04] VITALS: BP 118/77; PULSE 102
--- OUTSIDE RECORDS SUMMARY | 2025-02-10 16:04 | XMS_ITS | CCD ---
Author Organization [facility] CliniSyor Care Team Providers Care Linen Tech Name Role Phone Rachana LYONS Primary Care [...] Unavailable Unavailable TRISH THORPE Attending Unavailable AFUA GIRALDO I Attending Unavailable JUAN CHAVARRIA Attending Unavailable [...] TUTTLE Referring Unavailable DONYA ABERNATHY Attending Unavailable SHERWIN LAYO VINH Referring Unavailable YOMAIRA GUERRERO Attending Unavailable CESAR, YOMAIRA Attending Unavailable SHERWIN, LAYO Attending Unavailable SHERWIN, LAYO Attending Unavailable SISSY, BRANDY [...] Drug Allergy 03-16-2023 Unknown (qualifier value), Unknown [facility] Work Phone: (20 sources) Latex; Translations: [Latex] Drug allergy 03-16-2023 Rash [facility] Work Phone: (20 sources) nickel; Translations: [Nickel] Drug Allergy 03-16-2023 Rash, Itching [facility] Work Phone: Medications Current [...] Do not use to face, armpits, groin., [facility]/pharmacy #[id number], 162, cm, 10/02/23 11:23:00 EDT, Height/Length Dosing, 76.7, kg, 10/02/23 11:23:00 EDT, Weight Dosing Start Date: 10/02/23 Status: Ordered Start: 02-10-2022 clobetasol pro pionate 0.05% top oint 1 bonifacio, Topical, BID, 45 gram, Refill(s) 0, Apply a thin film to affected area. Do not use to face, armpits, groin., [facility] 1986, 160, cm, 07/24/21 17:02:00 EDT, Height/Length Dosing, 71.6, kg, 07/24/21 17:02:00 EDT, Weight Dosing Start Date: 02/10/22 Status: Ordered Start: 01-29-2021 clobetasol pro pionate 0.05% top oint 1 bonifacio, Topical, BID, 45 gram, Refill(s) 1, [facility] 1986, 160, cm, 01/29/21 16:48:00 EDT, Height/Length Dosing, [...] spasm, # 30 tab(s), Refills(s) 1, Pharmacy: [facility]/pharmacy #[id number], 162, cm, 02/19/23 7:51:00 EDT, [...] Refill(s) 6, Therapeutic tx; may refill early, [facility] 1986, 160, cm, 09/27/20 [...] 10 days 30 capsule 10/11/2024 12/06/2024 Discontinued Junel 1.530 oral tablet (1 source) Start: 09-27-2020 take 1 tablet by mouth once daily Junel 1.530 oral tablet 1 tab(s), Oral, Daily, 84 tab(s), Refill(s) 6, Therapeutic tx; may refill early, [facility] 1986, 160, cm, 09/27/20 [...] tablets Indications: Pruritus of in second trimester ([facility]) Day 1: 6 tablets Day 2: 5 tablets Day 3: 4 tablets Day 4: 3 tablets Day 5: 2 tablets Day 6: 1 tablet 21 tablet 10/04/2024 12/06/2024 Discontinued Start: 10-04-2024 methylPREDNISo lone (Medrol Dospak) 4 MG tablets Indications: Pruritus of in second trimester ([facility]) Day 1: 6 tablets Day [...] hour of each main meal containing fat, [facility], 160, cm, 07/24/21 17:02:00 EDT, Height/Length [...] Take 1 each by mouth Daily Active yqyvcjls23-upgn-wic ic-omega3 29-1-400 mg combo pack,tablet and cap,DR (14 sources) cmwahxzy60-qqpc- f olic-omega3 29-1-400 mg combo pack,tablet and [...] Daily, # 90 tab(s), Refills(s) 3, Pharmacy: [facility]/pharmacy #[id number], 162, cm, 10/02/23 11:23:00 EDT, Height/Length Dosing, 76.7, kg, 10/02/23 11:23:00 EDT, Weight Dosing Start Date: 10/02/23 Status: Ordered Start: 08-27-2023 take 2 tablets by mo uth once daily Topamax 25 mg Tab 50 mg = 2 tab(s), Oral, Daily, # 180 tab(s), Refills(s) 0, Pharmacy: [facility]/pharmacy #[id number], 162, cm, 08/27/23 17:49:00 EDT, [...] 4-7, # 90 tab(s), Refills(s) 1, Pharmacy: [facility]/pharmacy #[id number], 162, cm, 02/19/23 7:51:00 EDT, [...] [35 weeks gestation of ] 01-31-2025 Episodic Residual codes; unclassified (2 sources) Gestation period, 36 weeks; Translations: [36 weeks gestation of ] 02-07-2025 Episodic Screening and history of mental health [...] Facility US OB BPP W NON-STRESS on 02-07-2025 [place] [address] Ultrasound Report Signed Patient: SYDNEY ROMERO MR#: [id number] : 1995 Acct:[id number] Age/Sex: 29 / F ADM Date: 02/07/25 Loc: [facility] 254-[address]: Layo Courtney D.O. Ordering Physician: Layo Courtney D.O. Date of Service: 02/07/25 Procedure(s): US OB BPP w non-stress Accession Number(s): [id number] cc: Layo Courtney D.O.; Physician,Non-Staff [place] [address] Patient Name: SYDNEY ROMERO MRN: [id number]:[id number] date: 1995 Sex: F Assigned Patient Location: [facility] Current Patient Location: [facility] Accession/Order Number: [id number] Exam Date: 02/07/2025 14:45 Report Date: 02/07/2025 16:05 At the request of: LAYO COURTNEY DO Procedure: US OB BPP w non-stress Ultrasound biophysical profile INDICATION: IVF FINDINGS: The ticket marker reports a BPP of 8 out of 8 LONNY is normal at 10.6 cm. heart rate 147. Heterogeneous appearance of the placenta hypoechoic focus measuring 2.4 x 1.9 x 1.6 cm in size. US/US OB BPP w non-stress IMPRESSION: BPP 8 out of 8. Impression dictated by: Bernabe Romero M.D. 02/07/2025 4:05 PM Dictation Location: [place] [address] Electronically authenticated by: [id number] Y Date: 02/07/2025 16:05 Dictated By: Bernabe Romero M.D. Signed By: 02/07/251606 DD/ 04 TD/TT: Certified Executive Chef: [facility] Radiology, Radiologist, - 02/07/2025 [place] [address] Ultrasound Report Signed Patient: SYDNEY ROMERO MR#: [id number] : 1995 Acct:[id number] Age/Sex: 29 / F ADM Date: 02/07/25 Loc: [facility] 254-[address]: Layo Courtney D.O. Ordering Physician: Layo Courtney D.O. Date of Service: 02/07/25 Procedure(s): US OB BPP w non-stress Accession Number(s): [id number] cc: Layo Courtney D.O.; Physician,Non-Staff [place] [address] Patient Name: SYDNEY ROMERO MRN: [facility]:[id number] date: 1995 Sex: F Assigned Patient Location: [facility] Current Patient Location: [facility] Accession/Order Number: [id number] Exam Date: 02/07/2025 14:45 Report Date: 02/07/2025 16:05 At the request of: LAYO COURTNEY DO Procedure: US OB BPP w non-stress Ultrasound biophysical profile INDICATION: IVF FINDINGS: The ticket marker reports a BPP of 8 out of 8 LONNY is normal at 10.6 cm. heart rate 147. Heterogeneous appearance of the placenta hypoechoic focus measuring 2.4 x 1.9 x 1.6 cm in size. US/US OB BPP w non-stress IMPRESSION: BPP 8 out of 8. Impression dictated by: Bernabe Romero M.D. 02/07/2025 4:05 PM Dictation Location: [place] [address] Electronically authenticated by: [id number] Y Date: 02/07/2025 16:05 Dictated By: Bernabe Romero M.D. Signed By: 02/07/251606 DD/ 04 TD/TT: Certified Executive Chef: [facility] Radiology Study observation (narrative) [facility] US OB BPP W NON-STRESS Ordered By: Radiologist Radiology on 02-07-2025 [facility] Work Phone: Urinalysis macro (dipstick) panel (U)on 02-07-2025 Bilirubin, UA Negative Negative - 4(70) +++ mg/dL [facility] Blood, UA Negative Negative - 50 Jose/mcL [facility] Clarity, UA Clear [facility] Color, UA Yellow [facility] Glucose, UA Negative Negative - 2000(110) ++++ mg/dL [facility] Interpretation and review of laboratory results Abnormal [facility] Ketones, UA Negative Negative - 160(16) ++++ mg/dL [facility] Leukocytes, UA 3+ Negative - 500+++ Onel/mcL [facility] Nitrite, UA Negative Negative - Positive [facility] pH, UA 6.5 5 - 9 [facility] Protein, UA Trace Negative - 1999(20) ++++ mg/dL [facility] Spec Grav, UA 1.015 1 - 1.03 [facility] Urobilinogen, UA 2.0 0.2 - 12 mg/dL [facility] No Panel InformationOrdered By: Radiologist Radiology on 02-01-2025 [facility] Work Phone: No Panel Informationon 02-01 Radiology Study observation (narrative) [facility] US OB BPP W NON-STRESS on 02-01-2025 [place] [address] Ultrasound Report Signed Patient: SYDNEY ROMERO MR#: [id number] : 1995 Acct:[id number] Age/Sex: 29 / F ADM Date: 01/31/25 Loc: US Attending Dr: Layo Courtney D.O. Ordering Physician: Layo Courtney D.O. Date of Service: 01/31/25 Procedure(s): US OB BPP w non-stress Accession Number(s): [id number] cc: Layo Courtney D.O.; Physician,Non-Staff M.D. [place] [id number] Patient Name: SYDNEY ROMERO MRN: [facility]:[id number] date: 1995 Sex: F Assigned Patient Location: Current Patient Location: LAB Accession/Order Number: [id number] Exam Date: 01/31/2025 15:22 Report Date: 02/01/2025 [...] [Y] 2/2 LONNY: 11.6 cm Total score: 8 IMPRESSION: NORMAL BIOPHYSICAL PROFILE Impression dictated by: Mariela Toledo M.D. 02/01/2025 9:21 AM Dictation Location: [place] [address] Electronically authenticated by: [id number] Y Date: 02/01/2025 09:21 Dictated By: Mariela Toledo M.D. Signed By: 02/01/25923 DD/ 0 TD/TT: Certified Executive Chef: [facility] Radiology, Radiologist, - 02/01/2025 [place] [address] Ultrasound Report Signed Patient: SYDNEY ROMERO MR#: [id number] : 1995 Acct:[id number] Age/Sex: 29 / F ADM Date: 01/31/25 Loc: US Attending Dr: Layo Courtney D.O. Ordering Physician: Layo Courtney D.O. Date of Service: 01/31/25 Procedure(s): US OB BPP w non-stress Accession Number(s): [id number] cc: Layo Courtney D.O.; Physician,Non-Staff Steven The [place] [phone] Patient Name: SYDNEY ROMERO MRN: [facility]:[id number] date: 1995 Sex: F Assigned Patient Location: US Current Patient Location: LAB Accession/Order Number: [id number] Exam Date: 01/31/2025 15:22 Report Date: 02/01/2025 [...] Toledo M.D. 02/01/2025 9:21 AM Dictation Location: [place] [address] Electronically authenticated by: [id number] Y Date: 02/01/2025 09:21 Dictated By: Mariela Toledo M.D. Signed By: 02/01/25923 DD/ 0 TD/TT: Certified Executive Chef: [facility] 02-01-2025 [place] [address] Ultrasound Report Signed Patient: SYDNEY ROMERO MR#: [id number] : 1995 Acct:[id number] Age/Sex: 29 / F ADM Date: 01/31/25 Loc: US Attending Dr: Layo Courtney D.O. Ordering Physician: Layo Courtney D.O. Date of Service: 01/31/25 Procedure(s): US OB growth Accession Number(s): [id number] cc: Layo Courtney D.O.; Physician,Non-Staff [place] [phone] Patient Name: SYDNEY ROMERO MRN: [id number]:[id number] date: 1995 Sex: F Assigned Patient Location: [facility] Current Patient Location: LAB Accession/Order Number: [id number] Exam Date: 01/31/2025 15:22 Report Date: 02/01/2025 [...] Toledo M.D. 02/01/2025 9:21 AM Dictation Location: [place] [address] Electronically authenticated by: [id number] Y Date: 02/01/2025 09:21 Dictated By: Mariela Toledo M.D. Signed By: 02/01/25923 DD/ 0 TD/TT: Certified Executive Chef: [facility] Radiology, Radiologist, - 02/01/[address] [address] Ultrasound Report Signed Patient: SYDNEY ROMERO MR#: [id number] : 1995 Acct:[id number] Age/Sex: 29 / F ADM Date: 01/31/25 Loc: US Attending Dr: Layo Courtney D.O. Ordering Physician: Layo Courtney D.O. Date of Service: 01/31/25 Procedure(s): US OB growth Accession Number(s): [id number] cc: Layo Courtney D.O.; Physician,Non-Staff [place] The [place] [phone] Patient Name: SYDENY ROMERO MRN: [id number]:[id number] date: 1995 Sex: F Assigned Patient Location: [facility] Current Patient Location: LAB Accession/Order Number: [id number] Exam Date: 01/31/2025 15:22 Report Date: 02/01/2025 [...] Toledo M.D. 02/01/2025 9:21 AM Dictation Location: [place] [address] Electronically authenticated by: [id number] Y Date: 02/01/2025 09:21 Dictated By: Mariela Toledo M.D. Signed By: 02/01/25923 DD/ 0 TD/TT: Certified Executive Chef: [facility] Urinalysis macro (dipstick) panel (U)on 01-31-2025 [...] ++++ mg/dL [facility] Leukocytes, UA 3+ Negative - 500+++ Onel/mcL [facility] Nitrite, UA Negative Negative - Positive [facility] pH, UA 7 5 - 9 [facility] Protein, UA Negative Negative - 1999(20) ++++ mg/dL [facility] Spec Grav, UA 1.01 1 - 1.03 [facility] Urobilinogen, UA 2.0 0.2 - 12 mg/dL [facility] US OB BPP W NON-STRESS on 01-25-[address] [address] Ultrasound Report Signed Patient: SYDNEY ROMERO MR#: [id number] : 1995 Acct:[id number] Age/Sex: 29 / F ADM Date: 01/25/25 Loc: US Attending Dr: Layo Courtney D.O. Ordering Physician: Layo Courtney D.O. Date of Service: 01/25/25 Procedure(s): US OB BPP w non-stress Accession Number(s): [id number] cc: Layo Courtney D.O.; Physician,Non-Staff Steven The [address] [address] Patient Name: SYDNEY ROMERO MRN: [facility]:[id number] date: 1995 Sex: F Assigned Patient Location: [facility] Current Patient Location: US Accession/Order Number: [id number] Exam Date: 01/25/2025 16:50 Report Date: 01/25/2025 18:24 At the request of: LAYO COURTNEY DO Procedure: US OB BPP w non-stress Ultrasound biophysical profile INDICATION: Abnormal biophysical profile 01/24/2025 FINDINGS: The ticket marker reports a BPP of 8 out of 8 LONNY is normal at 10.9 cm. heart rate 134. Heterogeneous appearance of the placenta hypoechoic focus measuring 1.3 x 2.8 x 2.0 cm in size. US/US OB BPP w non-stress IMPRESSION: BPP 8 out of 8. Impression dictated by: Bernabe Romero M.D. 01/25/2025 6:24 PM Dictation Location: [place] [address] Electronically authenticated by: [id number] Y Date: 01/25/2025 18:24 Dictated By: Bernabe Romero M.D. Signed By: 01/25/251826 DD/ 23 TD/TT: Certified Executive Chef: [facility] Radiology, Radiologist, MD - 01/25/[address] [address] Ultrasound Report Signed Patient: SYDNEY ROMERO MR#: [id number] : 1995 Acct:[id number] Age/Sex: 29 / F ADM Date: 01/25/25 Loc: US Attending Dr: Layo Courtney D.O. Ordering Physician: Layo Courtney D.O. Date of Service: 01/25/25 Procedure(s): US OB BPP w non-stress Accession Number(s): [id number] cc: Layo Courtney D.O.; Physician,Non-Staff [place] [phone] Patient Name: SYDNEY ROMERO MRN: [facility]:[id number] date: 1995 Sex: F Assigned Patient Location: [facility] Current Patient Location: US Accession/Order Number: [id number] Exam Date: 01/25/2025 16:50 Report Date: 01/25/2025 18:24 At the request of: LAYO COURTNEY DO Procedure: US OB BPP w non-stress Ultrasound biophysical profile INDICATION: Abnormal biophysical profile 01/24/2025 FINDINGS: The ticket marker reports a BPP of 8 out of 8 LONNY is normal at 10.9 cm. heart rate 134. Heterogeneous appearance of the placenta hypoechoic focus measuring 1.3 x 2.8 x 2.0 cm in size. US/US OB BPP w non-stress IMPRESSION: BPP 8 out of 8. Impression dictated by: Bernabe Romero M.D. 01/25/2025 6:24 PM Dictation Location: [place] [address] Electronically authenticated by: [id number] Y Date: 01/25/2025 18:24 Dictated By: Bernabe Romero M.D. Signed By: 01/25/251826 DD/ 23 TD/TT: Certified Executive Chef: [facility] Radiology Study observation (narrative) [facility] US OB BPP W NON-STRESS Ordered By: Radiologist Radiology on 01-25-2025 [facility] [employer] Work Phone: US OB BPP W NON-STRESS on 01-24-[address] [address] Ultrasound Report Signed Patient: SYDNEY ROMERO MR#: [id number] : 1995 Acct:[id number] Age/Sex: 29 / F ADM Date: 01/24/25 Loc: US Attending Dr: Layo Courtney D.O. Ordering Physician: Layo Courtney D.O. Date of Service: 01/24/25 Procedure(s): US OB BPP w non-stress Accession Number(s): [id number] cc: Layo Courtney D.O.; Physician,Non-Staff [place] [phone] Patient Name: SYDNEY ROMERO MRN: [facility]:[id number] date: 1995 Sex: F Assigned Patient Location: [facility] Current Patient Location: Accession/Order Number: [id number] Exam Date: 01/24/2025 16:10 Report Date: 01/24/2025 19:55 At the request of: LAYO COURTNEY DO Procedure: US OB BPP w non-stress Biophysical profile. Reason for exam: resulting in vitro fertilization COMPARISON: 01/17/2025 TECHNIQUE: Transabdominal imaging of the gravid uterus was obtained. FINDINGS: The ticket marker reports a BPP of 6 out of 8 with 0/2 for gross body movements.. LONNY is normal at 11.9 cm. heart rate 148 bpm. US/US OB BPP w non-stress IMPRESSION: BPP 6out of 8. Correlation with NST is suggested. Impression dictated by: Juan Salinas Jr., D.O. 01/24/2025 7:55 PM Dictation Location: [place] [address] Electronically authenticated by: [id number] Y Date: 01/24/2025 19:55 Dictated By: Juan Salinas M.D. Signed By: 01/24/251957 DD/ 54 TD/TT: Certified Executive Chef: [facility] Radiology, Radiologist, MD - 01/24/2025 [place] [address] Ultrasound Report Signed Patient: SYDNEY ROMERO MR#: [id number] : 1995 Acct:[id number] Age/Sex: 29 / F ADM Date: 01/24/25 Loc: US Attending Dr: Layo Courtney D.O. Ordering Physician: Layo Courtney D.O. Date of Service: 01/24/25 Procedure(s): US OB BPP w non-stress Accession Number(s): [id number] cc: Layo Courtney D.O.; Physician,Non-Staff MDenisa [place] [address] Patient Name: SYDNEY ROMERO MRN: [facility]:[id number] date: 1995 Sex: F Assigned Patient Location: [facility] Current Patient Location: Accession/Order Number: [id number] Exam Date: 01/24/2025 16:10 Report Date: 01/24/2025 19:55 At the request of: LAYO COURTNEY DO Procedure: US OB BPP w non-stress Biophysical profile. Reason for exam: resulting in vitro fertilization COMPARISON: 01/17/2025 TECHNIQUE: Transabdominal imaging of the gravid uterus was obtained. FINDINGS: The ticket marker reports a BPP of 6 out of 8 with 0/2 for gross body movements.. LONNY is normal at 11.9 cm. heart rate 148 bpm. US/US OB BPP w non-stress IMPRESSION: BPP 6out of 8. Correlation with NST is suggested. Impression dictated by: Juan Salinas Jr., D.O. 01/24/2025 7:55 PM Dictation Location: [place] [address] Electronically authenticated by: [id number] Y Date: 01/24/2025 19:55 Dictated By: Juan Salinas M.D. Signed By: 01/24/251957 DD/ 54 TD/TT: Certified Executive Chef: [facility] Radiology Study observation (narrative) [facility] US OB BPP W NON-STRESS Ordered By: Radiologist Radiology on 01-24-2025 [facility] Work Phone: US OB BPP W NON-STRESS on 01-18-2025 [place] [address] Ultrasound Report Signed Patient: SYDNEY ROMERO MR#: [id number] : 1995 Acct:[id number] Age/Sex: 29 / F ADM Date: 01/17/25 Loc: US Attending Dr: Layo Courtney D.O. Ordering Physician: Layo Courtney D.O. Date of Service: 01/17/25 Procedure(s): US OB BPP w non-stress Accession Number(s): [id number] cc: Layo Courtney D.O.; Physician,Non-Staff Steven [place] [address] Patient Name: SYDNEY ROMERO MRN: [id number]:[id number] date: 1995 Sex: F Assigned Patient Location: [facility] Current Patient Location: Accession/Order Number: [id number] Exam Date: 01/17/2025 16:08 Report Date: 01/18/2025 [...] Toledo M.D. 01/18/2025 9:02 AM Dictation Location: [place] [address] Electronically authenticated by: [id number] Y Date: 01/18/2025 09:02 Dictated By: Mariela Toledo M.D. Signed By: 01/18/25904 DD/ 1 TD/TT: Certified Executive Chef: [facility] Radiology, Radiologist, MD - 01/18/2025 [place] [address] Ultrasound Report Signed Patient: SYDNEY ROMERO MR#: [id number] : 1995 Acct:[id number] Age/Sex: 29 / F ADM Date: 01/17/25 Loc: US Attending Dr: Layo Courtney D.O. Ordering Physician: Layo Courtney D.O. Date of Service: 01/17/25 Procedure(s): US OB BPP w non-stress Accession Number(s): [id number] cc: Layo Courtney D.O.; Physician,Non-Staff Steven The [place] [phone] Patient Name: SYDNEY ROMERO MRN: [facility]:[id number] date: 1995 Sex: F Assigned Patient Location: [facility] Current Patient Location: Accession/Order Number: [id number] Exam Date: 01/17/2025 16:08 Report Date: 01/18/2025 [...] Toledo M.D. 01/18/2025 9:02 AM Dictation Location: [place] Electronically authenticated by: [id number] Y Date: 01/18/2025 09:02 Dictated By: Mariela Toledo M.D. Signed By: 01/18/25904 DD/ 1 TD/TT: Certified Executive Chef: [facility] Radiology Study observation (narrative) [facility] OB BPP W NON-STRESS Ordered By: Radiologist Radiology on 01-18-2025 [facility] Work Phone: Urinalysis macro (dipstick) panel (U)on 01-16-2025 Bilirubin, UA Negative Negative - 4(70) +++ mg/dL [facility] Blood, UA Negative Negative - 50 Jose/mcL [facility] Clarity, UA Clear [facility] Color, UA Yellow [facility] Glucose, UA Negative Negative - 2000(110) ++++ mg/dL [facility] Interpretation and review of laboratory results Abnormal [facility] Ketones, UA Negative Negative - 160(16) ++++ mg/dL [facility] Leukocytes, UA Positive Negative - 500+++ Onel/mcL [facility] Nitrite, UA Negative Negative - Positive [facility] pH, UA 6 5 - 9 [facility] Protein, UA Positive Negative - 2000(20) ++++ mg/dL [facility] Spec Grav, UA 1.03 1 - 1.03 [facility] Urobilinogen, UA 1.0 0.2 - 12 mg/dL [facility] US OB BPP W NON-STRESS on 01-10-2025 [place] [address] Ultrasound Report Signed Patient: SYDNEY ROMERO MR#: [id number] : 1995 Acct:[id number] Age/Sex: 29 / F ADM Date: 01/10/25 Loc: US Attending Dr: Layo Courtney D.O. Ordering Physician: Layo Courtney D.O. Date of Service: 01/10/25 Procedure(s): US OB BPP w non-stress Accession Number(s): [id number] cc: Layo Courtney D.O.; Physician,Non-Staff Steven [place] [phone] Patient Name: SYDNEY ROMERO MRN: [id number] date: 1995 Sex: F Assigned Patient Location: US Current Patient Location: Accession/Order Number: [id number] Exam Date: 01/10/2025 16:03 Report Date: 01/10/2025 [...] Romero M.D. 01/10/2025 9:07 PM Dictation Location: [place] [address] Electronically authenticated by: [id number] Y Date: 01/10/2025 21:07 Dictated By: Bernabe Romero M.D. Signed By: 01/10/252109 DD/ 06 TD/TT: Certified Executive Chef: [facility] Radiology, Radiologist, MD - 01/10/2025 [place] [address] Ultrasound Report Signed Patient: SYDNEY ROMERO MR#: [id number] : 1995 Acct:[id number] Age/Sex: 29 / F ADM Date: 01/10/25 Loc: US Attending Dr: Layo Courtney D.O. Ordering Physician: Layo Courtney D.O. Date of Service: 01/10/25 Procedure(s): US OB BPP w non-stress Accession Number(s): [id number] cc: Layo Courtney D.O.; Physician,Non-Staff Steven [place] [address] Patient Name: SYDNEY ROMERO MRN: [facility]:[id number] date: 1995 Sex: F Assigned Patient Location: US Current Patient Location: Accession/Order Number: [id number] Exam Date: 01/10/2025 16:03 Report Date: 01/10/2025 [...] Romero M.D. 01/10/2025 9:07 PM Dictation Location: [place] [address] Electronically authenticated by: [id number] Y Date: 01/10/2025 21:07 Dictated By: Bernabe Romero M.D. Signed By: 01/10/252109 DD/ 06 TD/TT: Certified Executive Chef: [facility] Radiology Study observation (narrative) [facility] US OB BPP W NON-STRESS Ordered By: Radiologist Radiology on 01-10-2025 [facility] Work Phone: Urinalysis macro (dipstick) panel (U)on 01-03-2025 Bilirubin, UA Negative Negative - 4(70) +++ mg/dL [facility] Blood, UA Negative Negative - 50 Jose/mcL [facility] Clarity, UA Clear [facility] Color, UA Yellow [facility] Glucose, UA Trace Negative - 2000(110) ++++ mg/dL [facility] Interpretation and review of laboratory results Abnormal [facility] Ketones, UA Negative Negative - 160(16) ++++ mg/dL [facility] Leukocytes, UA Positive Negative - 500+++ Onel/mcL [facility] Nitrite, UA Negative Negative - Positive [facility] pH, UA 8 5 - 9 [facility] Protein, UA Negative Negative - 2000(20) ++++ mg/dL [facility] Spec Grav, UA 1.015 1 - 1.03 [facility] Urobilinogen, UA 1.0 0.2 - 12 mg/dL [facility] US OB FOLLOW UP TRANSABDOMIN AL APPROACHon [...] II, MD, PHD at 22-Dec-2024 08:03:51 AM [facility] Normal Not Available Comment on above: [...] [facility] Glucose, UA Negative Negative - 2000(110) ++++ mg/dL [facility] Interpretation and review of laboratory results Abnormal [facility] Ketones, UA Negative Negative - 160(16) ++++ mg/dL [facility] Leukocytes, UA Positive Negative - 500+++ Onel/mcL [facility] Comment on above: 3+ Nitrite, UA Negative Negative - Positive [facility] pH, UA 6 5 - 9 [facility] Protein, UA Positive Negative - 2000(20) ++++ mg/dL [facility] Spec Grav, UA 1.03 1 - 1.03 [facility] Urobilinogen, UA 1.0 0.2 - 12 mg/dL [facility] GLUCOSE TOLERANCE 3 HOURon 0 12-06-2024 GLUCOSE TOLERANCE 3 HOUR mg/dL [facility] Comment on above: GLU FAST 90 (<95) Co l: 12/06/24 1126 GLU 1HR 143 (<180) Col: 12/06/24 1235 GLU 2HR 132 (<155) Col: 12/06/24 1327 GLU 3HR 81 (<140) Col: 12/06/24 1432 [facility] Urinalysis macro (dipstick) panel (U)on 12-06-2024 [...] ++++ mg/dL [facility] Leukocytes, UA 3+ Negative - 500+++ Onel/mcL [facility] Nitrite, UA Negative Negative - Positive [facility] pH, UA 8 5 - 9 [facility] Protein, UA Negative Negative - 1999(20) ++++ mg/dL [facility] Spec Grav, UA 1.015 1 - 1.03 [facility] Urobilinogen, UA 1.0 0.2 - 12 mg/dL [facility] ALL CBC WITH AUTO DIFFon BASOPHILS ABSOLUTE AUTO 0 N [facility] Basophils/100 WBC (Bld) 0.3 % 0.2 - 2.0 % [facility] Eosinophils/100 WBC (Bld) 1.1 % 0.9 - 7.0 % [facility] Erythrocyte distribution width (RBC) [Ratio] 12.4 % 11.0 - 15.0 % [facility] Hematocrit (Bld) [Volume fraction] 38.9 % 36.0 - 48.0 % [facility] Hemoglobin (Bld) [Mass/Vol] 13.6 g/dL 12.0 - 16.0 g/dL [facility] IMMATURE GRANULOCYTES ABS AUTO 0.13 High [facility] Immature granulocytes/100 WBC (Bld) 1.4 % High 0.0 - 0.5 % [facility] Interpretation and review of laboratory results Abnormal [facility] LYMPHOCYTES ABSOLUTE AUTO 1.7 [facility] Lymphocytes/100 WBC (Bld) 18.9 % Low 20.5 - 60. 0 % [facility] MCH (RBC) [Entitic mass] 31.5 pg 26. 7 - 34.0 pg [facility] MCHC (RBC) [Mass/Vol] 35 g/dL 29.9 - 35.2 g/dL [facility] MCV (RBC) [Entitic vol] 90 fL 81.0 - 99.0 fL [facility] MONOCYTES ABSOLUTE AUTO 0.4 N [facility] Monocytes/100 WBC (Bld) 4.6 % 1.7 - 12.0 % [facility] NEUTROPHILS ABSOLUTE AUTO 6.8 High [facility] Neutrophils/100 WBC (Bld) 73.7 % 43.0 - 75. 0 % [facility] Platelet mean volume (Bld) [Entitic vol] 11.3 fL 9.5 - 13.[address] [facility] EO # 0.[address] [facility] PLT [address] [facility] RBC 4.[address] [facility] WBC 9.2 [facility] Urinalysis macro (dipstick) panel (U)on 11-09-2024 [...] 1.0 0.2 - 12 mg/dL [facility] Urinalysis macro (dipstick) panel (U)on 10-17-2024 Bilirubin, [...] 0.2 0.2 - 12 mg/dL [facility] ALL CBC WITH AUTO DIFFon BASOPHILS ABSOLUTE AUTO 0 N [facility] Basophils/100 WBC (Bld) 0.2 % 0.2 [...] Center MONOCYTES ABSOLUTE AUTO 0.7 N [facility] Monocytes/100 WBC (Bld) 7.2 % 1.7 - 12.0 % [facility] NEUTROPHILS ABSOLUTE AUTO 6.3 [facility] Neutrophils/100 WBC (Bld) 67.1 % 43.0 - 75. 0 % [facility] Platelet mean volume (Bld) [Entitic vol] 11.1 fL 9.5 - 13.5 fL [facility]H EO # 0.3 [facility] PLT [address] [facility] RBC 4.27 [facility] TB WBC [...] EFW (oz) 12 oz EFW by: Hadlock ([id number]) Extended Motor Vehicle Examiner 6.0 mm CM 4.4 mm 36% Nicolaides [...] Normal LVOT view: Normal 3-vessel view: Normal 4-eliojz-qhhpxle view: Normal Heart / Thorax Situs: situs [...] Normal L (more content not included)... Normal [facility] US for pregnancyon Interpreted by: Ad Ovalle [...] EFW (oz) 12 oz EFW by: Hadlock ([id number]-KL-FL) Extended Motor Vehicle Examiner 6.0 mm CM 4.4 mm 36% Nicolaides [...] Normal LVOT view: Normal 3-vessel view: Normal 8-prszfj-kdvgchu view: Normal Heart / Thorax Situs: situs [...] [employer] History ====== General History Pxqwbr419 cm Height (ft)5 ft Height (in)3 in Previous Outcomes Gravida1 Para0 Maternal Assessment Qfxejq125 cm Height (ft)5 ft Height (in)3 in Sxbysi15 kg Weight (lb)165 lb Weight gain0 kg [...] 87% Hadlock Femur32.4 mm20w 1d 73% Hadlock Ovrgqrr47.4 mm 45% Chitty HC / AC1.05 2% Hadlock EEH679 g20w 1d 91% Hadlock EFW (lb)0 lb EFW (oz)12 oz EFW by:Hadlock (ZXA-BN-FT-FL) Extended Vp6.0 mm CM4.4 mm 36% Nicolaides Nasal bone4.7 mm Head / Face / Neck Cephalic index0.74 10% Nicolaides Nasal bone:present Extremities / Bony Struc FL / BPD0.74 92% Hadlock FL / HC0.20 96% Hadlock FL / AC0.21 35% Hadlock Other Structures [id number] bpm Anatomy Cranium:Normal Lateral ventricles:Normal Choroid plexus:Normal [...] view:Normal RVOT view:Normal LVOT view:Normal 3-vessel view:Normal 8-xkqfvp-mrzjzvu view:Normal Heart / Thorax Situs:situs solitus (normal) [...] Lt lower leg:Normal (more content not included)... [facility] Work Phone: Source Facility: [facility] Interpreted by: Ad Ovalle Indication ======== Screening [...] EFW (oz) 12 oz EFW by: Hadlock (INV-NP-HA-FL) Extended Motor Vehicle Examiner 6.0 mm CM 4.4 mm 36% Nicolaides [...] Normal LVOT view: Normal 3-vessel view: Normal 6-mxbuhy-grfvtzq view: Normal Heart / Thorax Situs: situs [...] Radiology, Radiologist, MD - 10/07/2024 Source Facility: [facility] Interpreted by: Ad Oavlle Indication ======== Screening for Abnormalities, Conceived via [...] EFW (oz) 12 oz EFW by: Hadlock ([id number]-[id number]-FL) Extended Motor Vehicle Examiner 6.0 mm CM 4.4 mm 36% Nicolaides [...] Normal LVOT view: Normal 3-vessel view: Normal 1-trkdvq-vtryveq view: Normal Heart / Thorax Situs: situs [...] Normal Lt forear (more content not included)... [facility] Radiology Study observation (narrative) [facility] Work Phone: Radiology Study observation (narrative) [facility] US for pregnancyOrdered By: Ad Ovalle on 10-07-2024 [facility] Work Phone: US for pregnancyOrdered By: Radiologist Radiology on 10-07-2024 [facility] Work Phone: RECURRENT VAGINITIS (HTRX)on 09-07-2024 ATOPOBIUM VAGINAE 0 [facility] ATOPOBIUM VAGINAE Not detected [facility] BVAB 2,3 (BACTERIAL VAGINOSIS ASSOCIATED BACTERIA 2, 3); MOBILUNCUS SPP 0 [facility] BVAB 2,3 (BACTERIAL VAGINOSIS ASSOCIATED BACTERIA 2, 3); MOBILUNCUS SPP Not detected [facility] PRESTON ALBICANS, PARAPSILOSIS, TROPICALIS 0 [facility] PRESTON ALBICANS, PARAPSILOSIS, TROPICALIS Not detected [facility] PRESTON GLABRATA 0 [facility] PRESTON GLABRATA Not [facility] KRUSEI 0 [facility] PRESTON KRUSEI Not [facility] CHLAMYDIA TRACHOMATIS 0 [facility] CHLAMYDIA TRACHOMATIS Not detected N S [facility] GARDNERELLA VAGINALIS 0 [facility] S [facility] GARDNERELLA VAGINALIS Not detected N [facility] MEGASPHAERA (TYPES 1, 2) 0 [facility] MEGASPHAERA (TYPES 1, 2) Not detected [facility] MYCOPLASMA GENITALIUM 0 [facility] MYCOPLASMA GENITALIUM Not detected N [facility] NEISSERIA GONORRHOEAE 0 [facility] S [facility] NEISSERIA GONORRHOEAE Not detected N [facility] TRICHOMONAS VAGINALIS 0 [facility] S [facility] TRICHOMONAS VAGINALIS Not detected N [facility] Urinalysis macro (dipstick) panel (U)on 09-06-2024 Bilirubin, UA Negative Negative - 4(70) +++ mg/dL [facility] Blood, UA Negative Negative - 50 Jose/mcL [facility] Clarity, UA Clear [facility] Color, UA Yellow [facility] Glucose, UA Negative Negative - 2000(110) ++++ mg/dL [facility] Interpretation and [...] 0.2 0.2 - 12 mg/dL [facility] ALL CBC WITH AUTO DIFFon BASOPHILS ABSOLUTE AUTO 0 N [facility] Basophils/100 WBC (Bld) 0.2 % 0.2 [...] Center MONOCYTES ABSOLUTE AUTO 0.5 N [facility] Monocytes/100 WBC (Bld) 5.8 % 1.7 - 12.0 % [facility] NEUTROPHILS ABSOLUTE AUTO 5.5 [facility] Neutrophils/100 WBC (Bld) 65 % 43.0 - 75. 0 % [facility] Platelet mean volume (Bld) [Entitic vol] 10.9 fL 9.5 - 13.5 fL [facility] TBH EO # 0.2 [facility] PLT 151 [facility] TB RBC 4.5 [facility] TB WBC 8.4 [facility] Research [...] 0.2 0.2 - 12 mg/dL [facility] HCG ( test) Ql (U)o n 07-29-2024 Interpretation and review of laboratory results Abnormal [facility] Preg Test, Ur Positive Negative [facility] Urinalysis macro (dipstick) panel (U)on 07-29-2024 Bilirubin, [...] 0.2 0.2 - 12 mg/dL [facility] PROGESTERONEon 07-12-2024 PROGESTERONE 53.5 ng/mL Normal [facility] Comment on above: Result Comment: Refe rence Ranges Female Follicular Phase < 1.0 Luteal Phase 2.6-21.5 Post menopausal < 0.5 1st Trimester 4.1-34.0 2nd Trimester 24.0-76.0 3rd Trimester 52.0-302.0 Performed By: #### 7 45 #### [facility] [address], [address] [place] [address] Filter Tank Operator: Alexey Boogie MD US OB TRANSVAGINALon 025 [...] evaluation for early dating. View: Sufficient Normal [facility] Choriogonadotropin.beta subu niton 06-30-2024 HCG.beta subunit Qn 6575 m[IU]/mL High <5 [facility] Comment on above: Order Comment: Total HCG measurement is performed using the [employer] Access Immunoassay which detects intact HCG and free beta HCG subunit. This test is not indicated for use as a tumor marker. HCG testing is performed using a different test methodology at [facility] than [facility]. Direct result comparison should only be [...] By: #### 2 1198-7 #### JOSEPH ESQUIVEL ([id number]) [facility] ([facility] [address] [place] [address] Choriogonadotropin.beta subu niton 06-23-2024 HCG.beta subunit Qn 330 m[IU]/mL High <5 [facility] Comment on above: Order Comment: Total HCG measurement is performed using the [employer] Access Immunoassay which detects intact HCG and free beta HCG subunit. This test is not indicated for use as a tumor marker. HCG testing is performed using a different test methodology at [facility] than [facility]. Direct result comparison should only be [...] By: #### 2 1198-7 #### JOSEPH ESQUIVEL ([id number]) [facility] ([facility]) [address] [place], [place] [id number] Estradiolon 06-23-2024 E2 [Mass/Vol] 378 pg/mL Normal [facility] Comment on above: Order Comment: REF V ALUES FOLLICULAR PHASE 20-144 MID CYCLE 64-357 LUTEAL PHASE 56-214 POSTMENOPAUSE < 32 PREPUBERTY < 20 FEMALE 10-18Y 8-110 MALE 10-18Y < 20 ADULT MALE < 40 Estradiol measurement is performed using the [employer] Access Estradiol Immunoassay. Estradiol testing is performed using a different test methodology at [facility] than other [facility]. Direct result comparison should only be made within the same method. Performed By: #### 2 243-4 #### JOSEPH ESQUIVEL ([id number]) [facility] ([facility]) [address] [place], [place] [id number] Progesteroneon 06-23-2024 Progesterone [Mass/Vol] 42.6 ng/mL Normal [facility] Comment on above: Order Comment: REF V ALUES Male <0.2-0.8 Follicular Phase <0.2-1.5 Luteal Phase 7.4-15.4 Post Menopausal <0.2-0.2 1ST Trimester 12.0-84.0 2ND Trimester 10.2-58.8 3RD Trimester 46.5-160 Progesterone is performed using the [employer] Access Immunoassay. Progesterone testing is performed using a different test methodology at [facility] than other [facility]. Direct result comparison should only be made within the same method. Performed By: #### 2 839-9 #### JOSEPH ESQUIVEL ([id number]) [facility] ([facility]) [address] [place] [address] No Panel Informationon 06-13 Juan Chavarria MD [...] Preop diagnosis: Infertility Post op diagnosis: Same Form Building Supervisor: none Depth: 7 cm Curve: anterior Distance [...] Juan Chavarria 06/13/24 11:24 AM [facility] Work Phone: Progesteroneon 06-13-2024 Progesterone [Mass/Vol] 45.0 ng/mL Normal [facility] Comment on above: Order Comment: REF V ALUES Male <0.2-0.8 Follicular Phase <0.2-1.5 Luteal Phase 7.4-15.4 Post Menopausal <0.2-0.2 1ST Trimester 12.0-84.0 2ND Trimester 10.2-58.8 3RD Trimester 46.5-160 Progesterone is performed using the [employer] Access Immunoassay. Progesterone testing is performed using a different test methodology at [facility] than other [facility]. Direct result comparison should only be made within the same method. Performed By: #### 2 839-9 #### ORA MARQUES ([id number]) [facility] ([facility]) [address] [place] [address] Estradiolon 06-07-2024 E2 [Mass/Vol] 2870 pg/mL Normal [facility] Comment on above: Order Comment: REF V ALUES FOLLICULAR PHASE 20-144 MID CYCLE 64-357 LUTEAL PHASE 56-214 POSTMENOPAUSE < 32 PREPUBERTY < 20 FEMALE 10-18Y 8-110 MALE 10-18Y < 20 ADULT MALE < 40 Performed By: #### 2 243-4 #### JOSEPH ESQUIVEL ([id number]) [facility] ([facility]) [address] [place] [address] Progesteroneon 06-07-2024 Progesterone [Mass/Vol] 0.4 ng/mL Normal [facility] Comment on above: Order Comment: REF V ALUES Male <0.2-0.8 Follicular Phase <0.2-1.5 Luteal Phase 7.4-15.4 Post Menopausal <0.2-0.2 1ST Trimester 12.0-84.0 2ND Trimester 10.2-58.8 3RD Trimester 46.5-160 Progesterone is performed using the [facility] Access Immunoassay. Progesterone testing is performed using a different test methodology at [facility] than other [facility]. Direct result comparison should only be made within the same method. Result Comment: Ref Values Male <0.3- 1.2 Follicular Phase <0.3- 1.4 Luteal Phase 3.3-25.6 Mid-Luteal Phase 4.4-28.0 Postmenopausal <0.3- 0.7 Females: 1st Trimester 11.2- 90.0 2nd Trimester 25.6- 89.4 3RD Trimester 48.4-422.5 Patients receiving DHEA-S supplements may show false elevation of progesterone for results near 1.0 ng/mL. Contact laboratory at [phone] if alternative testing is needed. Performed By: #### 2 839-9 #### JOSEPH ESQUIVEL ([id number]) [facility] ([facility]) [address] [place] [address] [facility] US PELVIS LIMITED FOLLIC LES-FOLLICLE STUDIES PERFORMEDon 06-07-2024 [facility] US PELVIS LIMITED FOLLICLES-FOLLICLE STUDIES PERFORMED Follicle scan performed with follicle measurements in report. and Trilaminar appearance to the endometrium is noted. Normal [facility] Estradiolon 06-06-2024 E2 [Mass/Vol] 558 pg/mL Normal [facility] Comment on above: Order Comment: REF V ALUES FOLLICULAR PHASE 20-144 MID CYCLE 64-357 LUTEAL PHASE 56-214 POSTMENOPAUSE < 32 PREPUBERTY < 20 FEMALE 10-18Y 8-110 MALE 10-18Y < 20 ADULT MALE < 40 Performed By: #### 2 243-4 #### JOSEPH ESQUIVEL ([id number]) [facility] ([facility]) [address] [place] [address] Follicle Diameter USon 06-06 Trilaminar appearance to the endometrium is noted. RIS SECTRA ONLY [facility] Work Phone: Radiology Study observation (narrative) [facility] Work Phone: Progesteroneon 06-06-2024 Progesterone [Mass/Vol] 0.8 ng/mL Normal U [facility] Comment on above: Order Comment: REF V ALUES Male <0.2-0.8 Follicular Phase <0.2-1.5 Luteal Phase 7.4-15.4 Post Menopausal <0.2-0.2 1ST Trimester 12.0-84.0 2ND Trimester 10.2-58.8 3RD Trimester 46.5-160 Progesterone is performed using the [employer] Access Immunoassay. Progesterone testing is performed using a different test methodology at [facility] than other [facility]. Direct result comparison should only be made within the same method. Result Comment: Ref Values Male <0.3- 1.2 Follicular Phase <0.3- 1.4 Luteal Phase 3.3-25.6 Mid-Luteal Phase 4.4-28.0 Postmenopausal <0.3- 0.7 Females: 1st Trimester 11.2- 90.0 2nd Trimester 25.6- 89.4 3RD Trimester 48.4-422.5 Patients receiving DHEA-S supplements may show false elevation of progesterone for results near 1.0 ng/mL. Contact laboratory at [phone] if alternative testing is needed. Performed By: #### 2 839-9 #### JOSEPH ESQUIVEL ([id number]) [facility] ([facility]) [address] [place] [address] [facility] US ENDOMETRIAL LINING CH ECKon 06-06-2024 [facility] US ENDOMETRIAL LINING CHECK Trilaminar appearance to the endometrium is noted. Normal [facility] No Panel Informationon 03-22 Juan Chavarria MD 03/22/2024 9:44 AM Egg Retrieval Date/Time: 03/22/2024 9:39 AM Performed by: Juan Chavarria MD Authorized by: Donya Abernathy APRN-SYSTEMS ANALYSIS MANAGER Consent: Consent obtained: Verbal and written Consent [...] diagnosis: Female infertility Post op diagnosis: Same Form Building Supervisor: Dr. Warren IV Fluids: 600 cc EBL: 5 cc UOP: Not recorded Specimen: Oocytes Complications: None Number of Oocytes right ovary: 16 Ovarian access (right): Easy Number of Oocytes left ovary: 9 Ovarian access (left): Easy Endometrial thickness: n/a Needle type: Single Additional notes: [facility] Work Phone: Lutropinon 03-21-2024 Lutropin Qn 29.3 IU/L Normal [facility] Comment on above: Result Comment: LH R eference Values Follicular Phase 1.5-10.0 Mid-Cycle 13.0-72.0 Luteal Phase 0.5-13.0 Menopause 15.0-65.0 Pre-puberty 0- 3.0 Children 0- 6.0 Adult Male 1.0- 9.0 Luteinizing Hormone is performed using the [employer] Access Immunoassay. LH testing is performed using a different test methodology at [facility] than other [facility]. Direct result comparison should only be made within the same method. Performed By: #### 4 7236-5 #### SHAI Pickard ([id number]) [facility] ([facility]) [address] [place] [address] Progesteroneon 03-21-2024 Progesterone [Mass/Vol] 4.5 ng/mL Normal [facility] Comment on above: Order Comment: HIV [...] By: #### 5 6888-1 #### SHAI Pickard ([id number]) [facility] ([facility]) [id number] [place] [address] E2 [Mass/Vol]Ordered By: Shira Rich on 03-20-2024 REF VALUES FOLLICULAR PHASE 20-144 MID CYCLE 64-357 LUTEAL PHASE 56-214 POSTMENOPAUSE < 32 PREPUBERTY < 20 FEMALE 10-18Y 8-110 MALE 10-18Y < 20 ADULT MALE < 40 Estradiol measurement is performed using the [employer] Access Estradiol Immunoassay. Estradiol testing is performed using a different test methodology at [facility] than other [facility]. Direct result comparison should only be made within the same method. [facility] EstradiolOrdered By: Bela Rich on 03-20-2024 E2 [Mass/Vol] 4909 pg/mL [facility] Estradiolon 03-20-2024 E2 [Mass/Vol] 4909 pg/mL Normal [facility] Comment on above: Order Comment: HIV A [...] By: #### 5 6888-1 #### SHAI Pickard ([id number]) [facility] ([facility]) [address] [place] [address] Follicle Diameter USon 03-20 Follicle scan performed with follicle measurements in report. RIS SECTRA ONLY [facility] Work Phone: Radiology Study observation (narrative) [facility] Work Phone: Progesteroneon 03-20-2024 Progesterone [Mass/Vol] 1.3 ng/mL U [facility] Progesterone [Mass/Vol] 1.3 ng/mL Normal [facility] Comment on above: Order Comment: HIV [...] By: #### 5 6888-1 #### SHAI Pickard ([id number]) [facility] ([facility]) [address] [place] [address] Progesterone [Mass/Vol]on REF VALUES Male <0.2-0.8 Follicular Phase <0.2-1.5 Luteal Phase 7.4-15.4 Post Menopausal <0.2-0.2 1ST Trimester 12.0-84.0 2ND Trimester 10.2-58.8 3RD Trimester 46.5-160 Progesterone is performed using the [employer] Access Immunoassay. Progesterone testing is performed using a different test methodology at [facility] than other [facility]. Direct result comparison should only be made within the same method. [facility] US PELVIS LIMITED FOLLIC LES-FOLLICLE STUDIES PERFORMEDon 03-20-2024 [facility] US PELVIS LIMITED FOLLICLES-FOLLICLE STUDIES PERFORMED Follicle scan performed with follicle measurements in report. Normal [facility] Estradiolon 03-19-2024 E2 [Mass/Vol] 3760 pg/mL Normal [facility] Comment on above: Order Comment: HIV A [...] By: #### 5 6888-1 #### SHAI Pickard ([id number]) [facility] ([facility]) [id number] [place] [address] Follicle Diameter USon 03-19 Follicle scan performed with follicle measurements in report. RIS SECTRA ONLY [facility] Work Phone: Radiology Study observation (narrative) [facility] Work Phone: Progesteroneon 03-19-2024 Progesterone [Mass/Vol] 1.1 ng/mL Normal [facility] Comment on above: Order Comment: HIV [...] By: #### 5 6888-1 #### SHAI Pickard ([id number]) [facility] ([facility]) [address] [place] [address] [facility] US PELVIS LIMITED FOLLIC LES-FOLLICLE STUDIES PERFORMEDon 03-19-2024 [facility] US PELVIS LIMITED FOLLICLES-FOLLICLE STUDIES PERFORMED Follicle scan performed with follicle measurements in report. Normal [facility] E2 [Mass/Vol]on 03-17-2024 REF VALUES FOLLICULAR PHASE 20-144 MID CYCLE 64-357 LUTEAL PHASE 56-214 POSTMENOPAUSE < 32 PREPUBERTY < 20 FEMALE 10-18Y 8-110 MALE 10-18Y < 20 ADULT MALE < 40 Estradiol measurement is performed using the [employer] Access Estradiol Immunoassay. Estradiol testing is performed using a different test methodology at [facility] than other [facility]. Direct result comparison should only be made within the same method. [facility] Estradiolon 03-17-2024 E2 [Mass/Vol] 1462 pg/mL [facility] E2 [Mass/Vol] 1462 pg/mL Normal [facility] Comment on above: Order Comment: HIV A [...] By: #### 5 6888-1 #### SHAI Pickard ([id number]) [facility] ([facility]) [address] [place] [address] 83169 Follicle Diameter USon 03-17 Follicle scan performed with follicle measurements in report. Trilaminar appearance to the endometrium is noted. Physiologic free fluid is noted in the cul de sac. Notably retroverted uterus. Two small complex ovarian cysts noted, one on the left and one on the right. RIS SECTRA ONLY Radiology Study observation (narrative) [facility] Work Phone: Follicle Diameter USOrdered By: Leigh Ann Tuttle on 03-17-2024 [facility] Work Phone: Progesteroneon 03-17-2024 Progesterone [Mass/Vol] 0.6 ng/mL Normal [facility] Comment on above: Order Comment: HIV [...] By: #### 5 6888-1 #### SHAI Pickard ([id number]) [facility] ([facility]) [address] [place] [address] 73635 KELSY US PELVIS LIMITED FOLLIC LES-FOLLICLE STUDIES PERFORMEDon 03-17-2024 KELSY US PELVIS LIMITED FOLLICLES-FOLLICLE STUDIES PERFORMED Follicle scan performed with follicle measurements in report. Trilaminar appearance to the endometrium is noted. Physiologic free fluid is noted in the cul de sac. Notably retroverted uterus. Two small complex ovarian cysts noted, one on the left and one on the right. Normal [facility] E2 [Mass/Vol]on 03-15-2024 REF VALUES FOLLICULAR PHASE 20-144 MID CYCLE 64-357 LUTEAL PHASE 56-214 POSTMENOPAUSE < 32 PREPUBERTY < 20 FEMALE 10-18Y 8-110 MALE 10-18Y < 20 ADULT MALE < 40 Estradiol measurement is performed using the [employer] Access Estradiol Immunoassay. Estradiol testing is performed using a different test methodology at [facility] than other [facility]. Direct result comparison should only be made within the same method. [facility] Estradiolon 03-15-2024 E2 [Mass/Vol] 721 pg/mL [facility] E2 [Mass/Vol] 721 pg/mL Normal [facility] Comment on above: Order Comment: REF V ALUESFOLLICULAR PHASE 20-144MID CYCLE 64-357LUTEAL PHASE 56-214POSTMENOPAUSE < 32PREPUBERTY < 20FEMALE 10-18Y 8-110MALE 10-18Y < 20ADULT MALE < 40Estradiol measurement is performed using the [employer] Access Estradiol Immunoassay. Estradiol testing is performed using a different test methodology at [facility] than other [facility]. Direct resultcomparison should only be made within the same method. Performed By: #### 1 6128-1 #### SHAI Pickard ([id number]) [facility] ([facility]) [address] [place] [address] Follicle Diameter USon 03-15 Follicle scan performed with follicle measurements in report., Trilaminar appearance to the endometrium is noted., and Free fluid is noted in the cul de sac. RIS SECTRA ONLY [facility] Work Phone: Radiology Study observation (narrative) [facility] Work Phone: KELSY US PELVIS LIMITED FOLLIC LES-FOLLICLE STUDIES PERFORMEDon 03-15-2024 KELSY US PELVIS LIMITED FOLLICLES-FOLLICLE STUDIES PERFORMED Follicle scan performed with follicle measurements in report., Trilaminar appearance to the endometrium is noted., and Free fluid is noted in the cul de sac. Normal [facility] E2 [Mass/Vol]on 03-09-2024 REF VALUES FOLLICULAR PHASE 20-144 MID CYCLE 64-357 LUTEAL PHASE 56-214 POSTMENOPAUSE < 32 PREPUBERTY < 20 FEMALE 10-18Y 8-110 MALE 10-18Y < 20 ADULT MALE < 40 Estradiol measurement is performed using the [employer] Access Estradiol Immunoassay. Estradiol testing is performed using a different test methodology at [facility] than other [facility]. Direct result comparison should only be made within the same method. [facility] Estradiolon 03-09-2024 E2 [Mass/Vol] pg/mL pg/mL [facility] E2 [Mass/Vol] pg/mL Normal [facility] Comment on above: Order Comment: REF V ALUESFOLLICULAR PHASE 20-144MID CYCLE 64-357LUTEAL PHASE 56-214POSTMENOPAUSE < 32PREPUBERTY < 20FEMALE 10-18Y 8-110MALE 10-18Y < 20ADULT MALE < 40Estradiol measurement is performed using the [employer] Access Estradiol Immunoassay. Estradiol testing is performed using a different test methodology at [facility] than other [facility]. Direct resultcomparison should only be made within the same method. Performed By: #### 1 6128-1 #### SHAI Pickard ([id number]) [facility] ([facility]) [address] [place], [place] [address] Follicle Diameter USon 03-09 Follicle scan performed with follicle measurements in report., Trilaminar appearance to the endometrium is noted., and Free fluid is noted in the cul de sac. RIS SECTRA ONLY Radiology Study observation (narrative) [facility] Work Phone: Follicle Diameter USOrdered By: Alicia Morgan on 03-09-2024 [facility] Work Phone: Hematocrit Auto (Bld) [Volum e fraction]on 03-09-2024 Hematocrit (Bld) [Volume fraction] 43.2 % 36.0 - 46.0 % [facility] Interpretation and review of laboratory results Normal [facility] Hematocrit (Bld) [Volume fraction] 43.2 % Normal 36.0-46.0 [facility] Comment on above: Performed By: #### 1 6128-1 #### SHAI Pickard ([id number]) [facility] ([facility]) [address] [place] [address] 92428 KELSY US PELVIS LIMITED FOLLIC LES-FOLLICLE STUDIES PERFORMEDon 03-09-2024 KELSY US PELVIS LIMITED FOLLICLES-FOLLICLE STUDIES PERFORMED Follicle scan performed with follicle measurements in report., Trilaminar appearance to the endometrium is noted., and Free fluid is noted in the cul de sac. [facility] No Panel Informationon 02-22 Juan Chavarria [...] diagnosis: Female infertility Post op diagnosis: Same Form Building Supervisor: none IV Fluids: 500 cc EBL: 5 cc UOP: Not recorded Specimen: Oocytes Complications: None Number of Oocytes right ovary: 17 Ovarian acc ss (right): Easy Number of Oocytes left ovary: 13 Ovarian access (left): Easy Endometrial thickness: n/a Needle type: Single Additional notes: [facility] Work Phone: Lutropinon 02-22-2024 Lutropin Qn 35.3 IU/L [facility] Comment on above: Result Comment: LH R eference Values Follicular Phase 1.5-10.0 Mid-Cycle 13.0-72.0 Luteal Phase 0.5-13.0 Menopause 15.0-65.0 Pre-puberty 0- 3.0 Children 0- 6.0 Adult Male 1.0- 9.0 Luteinizing Hormone is performed using the [employer] Access Immunoassay. LH testing is performed using a different test methodology at [facility] than other [facility]. Direct result comparison should only be made within the same method. Performed By: #### 1 6128-1 #### SHAI Pickard ([id number]) [facility] ([facility]) [address] [place] [address] 81889 Progesteroneon 02-22-2024 Progesterone [Mass/Vol] 5.0 ng/mL Normal [facility] Comment on above: Order Comment: REF V ALUESMale <0.2-0.8Follicular Phase <0.2-1.5Luteal Phase 7.4-15.4Post Menopausal <0.2-0.21ST Trimester 12.0-84.02ND Trimester 10.2-58.83RD Trimester 46.5-160Progesterone is performed using the [facility] Access Immunoassay.Progesterone testing is performed using a different test methodology at [facility] than [facility]. Direct result comparison should only be made within the same method. Performed By: #### 1 6128-1 #### SHAI Pickard ([id number]) [facility] ([facility]) [address] [place] [address] 96145 E2 [Mass/Vol]Ordered By: Christi Infante on 02-21-2024 REF VALUES FOLLICULAR PHASE 20-144 MID CYCLE 64-357 LUTEAL PHASE 56-214 POSTMENOPAUSE < 32 PREPUBERTY < 20 FEMALE 10-18Y 8-110 MALE 10-18Y < 20 ADULT MALE < 40 Estradiol measurement is performed using the [employer] [facility] Access Estradiol Immunoassay. Estradiol testing is performed using a different test methodology at [facility] than other [facility]. Direct result comparison should only be made within the same method. [facility] EstradiolOrdered By: Janet Ritchie on 02-21-2024 E2 [Mass/Vol] 5153 pg/mL [facility] Estradiolon 02-21-2024 E2 [Mass/Vol] 5153 pg/mL Normal [facility] Comment on above: Order Comment: REF V ALUESFOLLICULAR PHASE 20-144MID CYCLE 64-357LUTEAL PHASE 56-214POSTMENOPAUSE < 32PREPUBERTY < 20FEMALE 10-18Y 8-110MALE 10-18Y < 20ADULT MALE < 40Estradiol measurement is performed using the [employer] Access Estradiol Immunoassay. Estradiol testing is performed using a different test methodology at [facility] than other [facility]. Direct resultcomparison should only be made within the same method. Performed By: #### 1 6128-1 #### SHAI Pickard ([id number]) [facility] ([facility]) [address] [place] [address] 35405 Follicle Diameter USon 02-20 Follicle scan performed with follicle measurements in report. RIS SECTRA ONLY Radiology Study observation (narrative) [facility] Work Phone: Follicle Diameter USOrdered By: Juan Chavarria on 02-21-2024 [facility] Work Phone: Luteinizing Hormone (LH)on Lutropin Qn 0.9 m[IU]/mL IU/L [facility] Comment on above: LH Reference Values Follicular Phase 1.5-10.0 Mid-Cycle 13.0-72.0 Luteal Phase 0.5-13.0 Menopause 15.0-65.0 Pre-puberty 0- 3.0 Children 0- 6.0 Adult Male 1.0- 9.0 Luteinizing Hormone is performed using the [employer] Access Immunoassay. LH testing is performed using a different test methodology at [facility] than other [facility]. Direct result comparison should only be made within the same method. Lutropinon 02-21-2024 Lutropin Qn 0.9 IU/L Normal [facility] Comment on above: Result Comment: LH R eference Values Follicular Phase 1.5-10.0 Mid-Cycle 13.0-72.0 Luteal Phase 0.5-13.0 Menopause 15.0-65.0 Pre-puberty 0- 3.0 Children 0- 6.0 Adult Male 1.0- 9.0 Luteinizing Hormone is performed using the [employer] Access Immunoassay. LH testing is performed using a different test methodology at [facility] than other [facility]. Direct result comparison should only be made within the same method. Performed By: #### 1 6128-1 #### SHAI Pickard ([id number]) [facility] ([facility]) [address] [place] [address] Lutropin Qnon 02-21-2024 [facility] Progesteroneon 02-21-2024 Progesterone [Mass/Vol] 1.3 ng/mL U [facility] Progesterone [Mass/Vol] 1.3 ng/mL Normal U [facility] Comment on above: Order Comment: REF V ALUESMale <0.2-0.8Follicular Phase <0.2-1.5Luteal Phase 7.4-15.4Post Menopausal <0.2-0.21ST Trimester 12.0-84.02ND Trimester 10.2-58.83RD Trimester 46.5-160Progesterone is performed using the [employer] Access Immunoassay.Progesterone testing is performed using a different test methodology at [facility] than other [facility]. Direct result comparison should only be made within the same method. Performed By: #### 5 196-1 #### SHAI Pickard ([id number]) [facility] ([facility]) [address] [place] [address] 56421 Progesterone [Mass/Vol]on REF VALUES Male <0.2-0.8 Follicular Phase <0.2-1.5 Luteal Phase 7.4-15.4 Post Menopausal <0.2-0.2 1ST Trimester 12.0-84.0 2ND Trimester 10.2-58.8 3RD Trimester 46.5-160 Progesterone is performed using the [employer] Access Immunoassay. Progesterone testing is performed using a different test methodology at [facility] than other [facility]. Direct result comparison should only be made within the same method. [facility] KELSY US PELVIS LIMITED FOLLIC LES-FOLLICLE STUDIES PERFORMEDon 02-21-2024 KELSY US PELVIS LIMITED FOLLICLES-FOLLICLE STUDIES PERFORMED Follicle scan performed with follicle measurements in report. Normal [facility] Estradiolon 02-20-2024 E2 [Mass/Vol] 3718 pg/mL Normal [facility] Comment on above: Order Comment: REF V ALUESFOLLICULAR PHASE 20-144MID CYCLE 64-357LUTEAL PHASE 56-214POSTMENOPAUSE < 32PREPUBERTY < 20FEMALE 10-18Y 8-110MALE 10-18Y < 20ADULT MALE < 40Estradiol measurement is performed using the [employer] Access Estradiol Immunoassay. Estradiol testing is performed using a different test methodology at [facility] than other [facility]. Direct resultcomparison should only be made within the same method. Performed By: #### 5 196-1 #### SHAI Pickard ([id number]) [facility] ([facility]) [address] [place] [address] 92388 Progesteroneon 02-20-2024 Progesterone [Mass/Vol] 1.4 ng/mL Normal [facility] Comment on above: Order Comment: REF V ALUESMale <0.2-0.8Follicular Phase <0.2-1.5Luteal Phase 7.4-15.4Post Menopausal <0.2-0.21ST Trimester 12.0-84.02ND Trimester 10.2-58.83RD Trimester 46.5-160Progesterone is performed using the [employer] Access Immunoassay.Progesterone testing is performed using a different test methodology at [facility] than other [facility]. Direct result comparison should only be made within the same method. Performed By: #### 5 196-1 #### SHAI Pickard ([id number]) [facility] ([facility]) [address] [place] [address] 51436 KELSY US PELVIS LIMITED FOLLIC LES-FOLLICLE STUDIES PERFORMEDon 02-20-2024 KELSY US PELVIS LIMITED FOLLICLES-FOLLICLE STUDIES PERFORMED Follicle scan performed with follicle measurements in report. Normal [facility] E2 [Mass/Vol]on 02-18-2024 REF VALUES FOLLICULAR PHASE 20-144 MID CYCLE 64-357 LUTEAL PHASE 56-214 POSTMENOPAUSE < 32 PREPUBERTY < 20 FEMALE 10-18Y 8-110 MALE 10-18Y < 20 ADULT MALE < 40 Estradiol measurement is performed using the [employer] Access Estradiol Immunoassay. Estradiol testing is performed using a different test methodology at [facility] than other [facility]. Direct result comparison should only be made within the same method. [facility] Estradiolon 02-18-2024 E2 [Mass/Vol] 1472 pg/mL [facility] E2 [Mass/Vol] 1472 pg/mL Normal [facility] Comment on above: Order Comment: REF V ALUESFOLLICULAR PHASE 20-144MID CYCLE 64-357LUTEAL PHASE 56-214POSTMENOPAUSE < 32PREPUBERTY < 20FEMALE 10-18Y 8-110MALE 10-18Y < 20ADULT MALE < 40Estradiol measurement is performed using the [employer] Access Estradiol Immunoassay. Estradiol testing is performed using a different test methodology at [facility] than other [facility]. Direct resultcomparison should only be made within the same method. Performed By: #### 5 196-1 #### SHAI Pickard ([id number]) [facility] ([facility]) [address] [place] [address] Follicle Diameter USon 02-17 Follicle scan performed with follicle measurements in report. Trilaminar appearance to the endometrium is noted. Free fluid is noted in the right paraovarian space. Notably retroverted uterus. RIS SECTRA ONLY Radiology Study observation (narrative) [facility] Work Phone: Follicle Diameter USOrdered By: Leigh Ann Tuttle on 02-18-2024 [facility] Work Phone: KELSY US PELVIS LIMITED FOLLIC LES-FOLLICLE STUDIES PERFORMEDon 02-18-2024 KELSY US PELVIS LIMITED FOLLICLES-FOLLICLE STUDIES PERFORMED Follicle scan performed with follicle measurements in report. Trilaminar appearance to the endometrium is noted. Free fluid is noted in the right paraovarian space. Notably retroverted uterus. Normal [facility] E2 [Mass/Vol]on 02-16-2024 REF VALUES FOLLICULAR PHASE 20-144 MID CYCLE 64-357 LUTEAL PHASE 56-214 POSTMENOPAUSE < 32 PREPUBERTY < 20 FEMALE 10-18Y 8-110 MALE 10-18Y < 20 ADULT MALE < 40 Estradiol measurement is performed using the [employer] Access Estradiol Immunoassay. Estradiol testing is performed using a different test methodology at [facility] than other [facility]. Direct result comparison should only be made within the same method. [facility] Estradiolon 02-16-2024 E2 [Mass/Vol] 639 pg/mL [facility] E2 [Mass/Vol] 639 pg/mL Normal [facility] Comment on above: Order Comment: REF V ALUESFOLLICULAR PHASE 20-144MID CYCLE 64-357LUTEAL PHASE 56-214POSTMENOPAUSE < 32PREPUBERTY < 20FEMALE 10-18Y 8-110MALE 10-18Y < 20ADULT MALE < 40Estradiol measurement is performed using the [employer] Access Estradiol Immunoassay. Estradiol testing is performed using a different test methodology at [facility] than other [facility]. Direct resultcomparison should only be made within the same method. Performed By: #### 5 196-1 #### SHAI Pickard ([id number]) [facility] ([facility]) [address] [place] [address] KELSY US PELVIS LIMITED FOLLIC LES-FOLLICLE STUDIES PERFORMEDon 02-16-2024 KELSY US PELVIS LIMITED FOLLICLES-FOLLICLE STUDIES PERFORMED Follicle scan performed with follicle measurements in report. and Trilaminar appearance to the endometrium is noted. Normal [facility] E2 [Mass/Vol]on 02-09-2024 REF VALUES FOLLICULAR PHASE 20-144 MID CYCLE 64-357 LUTEAL PHASE 56-214 POSTMENOPAUSE < 32 PREPUBERTY < 20 FEMALE 10-18Y 8-110 MALE 10-18Y < 20 ADULT MALE < 40 Estradiol measurement is performed using the [employer] Access Estradiol Immunoassay. Estradiol testing is performed using a different test methodology at [facility] than other [facility]. Direct result comparison should only be made within the same method. [facility] Estradiolon 02-09-2024 E2 [Mass/Vol] pg/mL pg/mL [facility] E2 [Mass/Vol] pg/mL Normal [facility] Comment on above: Order Comment: REF V ALUESFOLLICULAR PHASE 20-144MID CYCLE 64-357LUTEAL PHASE 56-214POSTMENOPAUSE < 32PREPUBERTY < 20FEMALE 10-18Y 8-110MALE 10-18Y < 20ADULT MALE < 40Estradiol measurement is performed using the [employer] Access Estradiol Immunoassay. Estradiol testing is performed using a different test methodology at [facility] than other [facility]. Direct resultcomparison should only be made within the same method. Performed By: #### 5 196-1 #### SHAI Pickard ([id number]) [facility] ([facility]) [address] [place] [address] Follicle Diameter USon 02-08 Follicle scan performed with follicle measurements in report. MFM Radiology Study observation (narrative) [facility] Work Phone: Follicle Diameter USOrdered By: Juan Chavarria on 02-09-2024 [facility] Work Phone: Hematocrit Auto (Bld) [Volum e fraction]on 02-09-2024 Hematocrit (Bld) [Volume fraction] 42.9 % 36.0 - 46.0 % [facility] Interpretation and review of laboratory results Normal [facility] Hematocrit (Bld) [Volume fraction] 42.9 % Normal 36.0-46.0 [facility] Comment on above: Performed By: #### 4 544-3 #### JOSEPH ESQUIVEL ([id number]) [facility] ([facility]) [address] [place] [address] KELSY US PELVIS LIMITED FOLLIC LES-FOLLICLE STUDIES PERFORMEDon 02-09-2024 [facility] PELVIS LIMITED FOLLICLES-FOLLICLE STUDIES PERFORMED Follicle scan performed with follicle measurements in report. Normal [facility] HCG ( test) Ql (U)o n 01-28-2024 Interpretation and review of laboratory results Normal [facility] Work Phone: Preg Test, Ur Negative Negative [facility] Work Phone: [facility] Work Phone: No Panel Informationon 01-27 [...] Tolerated well, no immediate complications [facility] Work Phone: Surgical pathology studyon 0 01-28-2024 Surgical pathology study Pathology report.total SEE COMMENT Surgical Pathology Case: [id number] Authorizing Provider: Leigh Ann Tuttle MD Collected: 01/28/2024 1027 Ordering Location: [facility] Received: 01/28/2024 1027 [place] Pathologist: Yamila Leo MD Specimen: ENDOMETRIUM POLYPECTOMY [...] is entirely submitted in 1 cassette. JEK/SBS [facility] IGP,APTIMA HPV,AGE GDLNon AGE GDLN ACOG TESTING Note . [facility] Comment on above: TESTS RESULT FLAG U NITS REF RANGE LAB Clinician Provided Cytology Information Source.............Cervix;Endocervix No. of containers..01 ThinPrep Vial Age Rileyo CECILIAOG Telma... FLAG LEGEND: L-Low Normal,H-High Normal,LL-Alert Low,HH-Alert High <-Panic Low,>-Panic High,A-Abnormal,AA-Critical Abnormal Performed at: 01 =G [address] [address] Nidhi Fay MD, IGP, RFX APTIMA HPV ASCU Note . [facility] Comment on above: TESTS RESULT FLAG UN ITS REF RANGE LAB DIAGNOSIS: 02 NEGATIVE FOR INTRAEPITHELIAL LESION OR MALIGNANCY. Specimen adequacy: 02 Satisfactory for evaluation. Endocervical and/or squamous metaplastic cells (endocervical component) are present. Performed by: Gaby Masters Admission Discharge Rn ([facility]) . 02 Note: Note 02 The [...] High,A-Abnormal,AA-Critical Abnormal Performed at: 02 [address] [facility] [address] [address] Nidhi Fay MD, Performed at: =G - [facility] [address] [id number] Bow Tacker: Nidhi Fay MD, Phone: [phone] Performed at: - [facility] [id number] Bow Tacker: Nidhi Fay MD, Phone: [phone] [facility] Blood type and Indirect anti body screen panel (Bld)on 2023 ABO group Nom (Bld) O [facility] Blood group antibody screen Ql Negative [facility] D Ag Ql (Bld) Positive [facility] ABO group Nom (Bld) O Normal [facility] Comment on above: Performed By: #### 3 4532-2 #### JOSEPH ESQUIVEL ([id number]) [facility] [address] [place] [address] [place] Blood group antibody screen Ql Negative Normal [facility] Comment on above: Performed By: #### 3 4532-2 #### JOSEPH ESQUIVEL ([id number]) [facility] [address] [place] [address] [place] D Ag Ql (Bld) Positive Normal [facility] Comment on above: Performed By: #### 3 4532-2 #### JOSEPH ESQUIVEL ([id number]) [facility] ([facility]) [address] [place] [address] [place] C. trachomatis and N. gonorr hoeae DNA EDELMIRA+probe Nom (Unsp spec)on 2023 C. trachomatis rRNA EDELMIRA+probe Ql (Unsp spec) Negative Normal Negative [facility] Comment on above: Order Comment: The [...] By: #### 3 6903-3 #### SHAI Pickard ([id number]) [facility] ([facility]) [id number] [place] [address] N. gonorrhoeae DNA Probe+sig amp Ql (Unsp spec) Negative Normal Negative [facility] Comment on above: Order Comment: The A [...] By: #### 3 6903-3 #### SHAI Pickard ([id number]) [facility] ([facility]) [address] [place] [address] 92116 HIV 1+2 Ab+HIV1 p24 Agon HIV 1+2 Ab+HIV1 p24 Ag IA Ql Non-Reactive Normal Nonreactive [facility] Comment on above: Order Comment: HIV A g/Ab screen is performed using the Siemens [employer] HIV Ag/Ab Combo assay which detects the presence of HIV p24 antigen as well as antibodies to HIV-1 (Group M and O) and HIV-2. No laboratory evidence of HIV infection. If acute HIV infection is suspected, consider testing for HIV RNA by PCR (viral load). Performed By: #### 5 6888-1 #### SHAI Pickard ([id number]) [facility] ([facility]) [address] [place], [place] [address] Hepatitis B virus surface Ag on 2023 HBV surface Ag IA Ql Non-Reactive Normal Nonreactive [facility] Comment on above: Result Comment: Biot in interference may cause falsely decreased results. Patients taking a Biotin dose of up to 5 mg/day should refrain from taking Biotin for 24 hours before sample collection. Providers may contact their local laboratory for further information. Performed By: #### 5 196-1 #### SHAI Pickard ([id number]) [facility] ([facility]) [address] [place], [place] [address] Hepatitis C virus Abon 12-10 HCV Ab Ql (S) Non-Reactive Normal Nonreactive [facility] Comment on above: Result Comment: Resu lts from patients taking biotin supplements or receiving high-dose biotin therapy should be interpreted with caution due to possible interference with this test. Providers may contact their local laboratory for further information. Performed By: #### 1 6128-1 #### SHAI Pickard ([id number]) [facility] ([facility]) [address] [place], [place] [address] Rubella virus IgG IA Qnon Rubella virus IgG IA Ql Positive Normal Negative [facility] Comment on above: Order Comment: NEGAT [...] By: #### 5 334-8 #### SHAI Pickard ([id number]) [facility] ([facility]) [address] [place] [address] 94533 Rubella virus IgG Qn (S) 1.2 IA Normal <=0.7 IA [facility] Comment on above: Order Comment: NEGAT DEZ: [...] By: #### 5 334-8 #### SHAI Pickard ([id number]) [facility] ([facility]) [address] [place] [address] 35529 Treponema pallidum Ab.IgG+Ig Mon 2023 T. pallidum IgG+IgM IA Ql (S) Non-Reactive Normal Nonreactive [facility] Comment on above: Result Comment: No s ignificant level of Treponema pallidum antibody detected. Repeat testing in 2 to 4 weeks may be considered if early infection or incubating syphilis infection is suspected. Performed By: #### 4 7236-5 #### SHAI Pickard ([id number]) [facility] ([facility]) [address] [place] [address] 74816 VZV IgG IA Ql (S)on 12-11-19 24 VARICELLA ZOSTER IGG INDEX 5.6 IA High <=0.8 [facility] Comment on above: Order Comment: NEGAT DEZ: [...] By: #### 1 5410-4 #### SHAI Pickard ([id number]) [facility] ([facility]) [address] [place], [place] [address] Varicella zoster virus Ab.Ig Biju 2023 VZV IgG IA Ql (S) Positive Abnormal Negative [facility] Comment on above: Order Comment: NEGAT [...] By: #### 1 5410-4 #### SHAI Pickard ([id number]) [facility] ([facility]) [address] [place] [address] 24086 Ambulatory Visit Summaryon 0 10-02-2023 Ambulatory Visit [...] knee anterior cruciate ligament allograft reconstruction with ohri-rafksr-dzeg, debridment medial meniscus tear, patellofemoral chondroplasty-Grade I-II (07/28/2013), Tonsillectomy, tubes in the ears. Discharge Vitals Temperature (Oral) 36.8 ?C Heart Rate (Peripheral) 65 Blood Pressure 118/66 Height 162 cm Height 64 in Weight 76.7 kg Weight 168.74 lb BMI 29.23 What to do next Scheduled Follow-Up Appointments Thursday 7:20 AM EDT With: Princess Dumont Where: [facility] Primary Care Normal [facility] Family Medicine Office/Clini c Noteon 10-02-2023 Family [...] lot of blood work ordered by her GENERALIST and we are going to go over [...] mg once day. She has been taking ihnu-pcd-suauxbd magnesium at night since initiating Topamax. Weight management. The patient expresses a desire to lose weight and re-initiate her Adipex. She has previously tried Aryan zhac-zsc-xogtbfo but found it ineffective. 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 She is agreeable trying vitamin [...] with me in (more content not included)... [facility] Comment on above: Result Comment: Elec tronically Signed By: Princess Dumont\.br\Date and Time Signed: 10/02/23 16:44 EDT\.br\Electronically Co-Signed By: Raj Chu\.br\Date and Time Co-Signed: 10/02/23 15:48 EDT Lab Reportson 10-02-2023 Lab Reports [id number] 02#1.00TIFF [facility] Patient Educationon 10-02-19 Patient Education BMI for [...] numbers. This can be done either in Italian ([place] or metric measurements. Note that charts and online BMI calculators are available to help you find your BMI quickly and easily without having to do these calculations yourself. To calculate your BMI in Italian (U.S.) measurements: 1. Measure your weight in [...] for Disease Control and Prevention: www.cdc.gov ? [place] Heart [employer]: www.heart.org ? National Heart, Lung, and Blood [place]: www.nhlbi.nih.gov Summary ? Body mass index (BMI) is a number that is calculated from a person's weight and height. ? BMI may help estimate how much of a person's weight is composed of fat. BMI can help identify those who may be at higher risk for certain medical problems. ? BMI can be measured using Italian measurements or metric measurements. ? BMI charts are used to identify whether you are underweight, normal weight, overweight, or obese. This information is not intended to replace advice given to you by your health care provider. Make sure you discuss any questions you have with your health care provider. Document Revised: 01/11/2020 Document Reviewed: 11/18/2019 [employer] Patient Education ? 2022 [employer] Dermatology Eczema Eczema refers to a [...] symptoms? S (more content not included)... Normal [facility] Transfer Inon 09-02-2023 Transfer In [id number] 2#1.00TIFF Normal [facility] Family Medicine Office/Clini c Noteon 08-29-2023 Family [...] and encouraged her to go see her GENERALIST. The patient was overweight with an elevated BMI. Her laboratories I ordered were not performed, and she did not do the x-ray that I ordered either. She presents for headaches again. Cervicalgia and persistent headaches. The patient underwent cervical x-ray in 02/20/2023 in [place], the day after her last visit on [...] in 06/2023 or 07/2023 and done at [place]. She is uncertain if cholesterol levels were checked. Her bowel movements and urination are normal. She and her switched clinics where she is the patient for an IVF and are waiting for an appointment within the next 2 months. She has a . 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 Ibuprofen every 6 to 8 hours. Tylenol [...] appearing. EN (more content not included)... Normal [facility] Comment on above: Result Comment: Elec tronically [...] numbers. This can be done either in Italian (U.S.) or metric measurements. Note that charts and online BMI calculators are available to help you find your BMI quickly and easily without having to do these calculations yourself. To calculate your BMI in Italian (U.S.) measurements: 1. Measure your weight in [...] for Disease Control and Prevention: www.cdc.gov ? [employer] [place] Heart [employer]: www.heart.org ? National Heart, Lung, and Blood [place]: www.nhlbi.nih.gov Summary ? Body mass index (BMI) is a number that is calculated from a person's weight and height. ? BMI may help estimate how much of a person's weight is composed of fat. BMI can help identify those who may be at higher risk for certain medical problems. ? BMI can be measured using Italian measurements or metric measurements. ? BMI charts are used to identify whether you are underweight, normal weight, overweight, or obese. This information is not intended to replace advice given to you by your health care provider. Make sure you discuss any questions you have with your health care provider. Document Revised: 01/11/2020 Document Reviewed: 11/18/2019 [employer] Patient Education ? 2022 [employer]. Endocrinology Carbohydrate Counting for Diabetes Mellitus, Adult [...] contain carbohydra (more content not included)... Normal [facility] DHEA SERUMon 07-31-2022 Dehydroepiandrosterone (DHEA) 429 ng/dL Normal 31-701 [facility] Comment on above: Performed By: #### D GEORGIEA. #### [facility] [address] [address] [address] Meghna Alas ANTI-MULLERIAN HORMONEon Anti-Mullerian Hormone (AMH) 2.01 ng/mL Normal [facility] Comment on above: Result Comment: For assays employing antibodies, the possibility exists for interference by heterophile antibodies in the samples.1 1.Ramon Calderon Interferences in Immunoassays - still a threat. Clin. Chem. 2000; 46: 4652-0959. This test was developed and its performance characteristics determined by [employer]. It has not been cleared or approved by the Food and Drug Administration. Reference Range: Females 20 - 25y: 1.23 - 11.51 Median 4.70 AMH concentrations of >= 1.06 ng/mL is correlated with a better response to ovarian stimulation, produced more retrievable oocytes and higher odds of live according to Lindseyer et al. Fertility and Sterility. 2010: 94:8730-1177. The current AMH test method correlates with [...] tumor. Performed By: #### Abdi GARCIA #### [facility] [address] [place] [address] Dr. Meghna Alas PAP ACOG PANEL 2: 21 to 29on 07-29-2022 . . Normal [facility] Comment on above: Performed By: #### 4 [id number] ####[facility] [address] [address]Dr. Meghna Alas Age Gdln ACOG Testing - Normal [facility] Comment on above: Performed By: #### 4 [id number] ####[facility] [address] [id number]. Meghna Alas DIAGNOSIS: Comment [facility] Comment on above: Result Comment: NEGA TIVE FOR INTRAEPITHELIAL LESION OR MALIGNANCY. Performed By: #### 4 [id number] ####[facility] [address] [address]Dr. Meghna Alas Methodology: Comment Normal [facility] Comment on above: Result Comment: This liquid based ThinPrep(R) pap test was screened with the use of an image guided system. Performed By: #### 4 [id number] ####[facility] [address] [place], [place] [address]DrBetito Alas Note: Comment Normal [facility] Comment on above: Result Comment: The Pap smear is a screening test designed to aid in the detection of premalignant and malignant conditions of the uterine cervix. It is not a diagnostic procedure and should not be used as the sole means of detecting cervical cancer. Both false-positive and false-negative reports do occur. . Performed By: #### 4 [id number] ####[facility] [address] [place], [place] [address]DrBetito Alas Performed by: Comment Normal [facility] Comment on above: Result Comment: Antonella Villarreal, Supervisory Admission Discharge Rn (ASCP) Performed By: #### 4 [id number] ####[facility] [address] [place], [place] [address]DrBetito Alas Reflex Criteria: Comment Normal [facility] Comment on above: Result Comment: The HPV DNA reflex criteria were not met with this specimen result therefore, no HPV testing was performed. . Performed By: #### 4 [id number] ####[facility] [address] [place], [place] [address]DrBetito Alas Specimen adequacy: Comment Normal [facility] Comment on above: Result Comment: Sati sfactory for evaluation. Endocervical and/or squamous metaplastic cells (endocervical component) are present. Performed By: #### 4 [id number] ####[facility] [address] [place], [place] [address]Dr. Meghna Alas DHEA-SULFATEon 07-27-2022 DHEA-Sulfate 195.0 ug/dL Normal 110.0-431.7 [facility] Comment on above: Performed By: #### D RADHA #### [facility] [address] [address] [address] Meghna Alas FSHon 07-27-2022 FSH 11.4 mIU/mL Normal [facility] Comment on above: Result Comment: Adul t Female: Follicular phase 3.5 - 12.5 Ovulation phase 4.7 - 21.5 Luteal phase 1.7 - 7.7 Postmenopausal 25.8 - 134.8 Performed By: #### L [facility] #### [facility] [address] [address] [address] Meghna Alas LUTEINIZING HORMONE (LH)on 0 07-27-2022 LH 61.8 mIU/mL Normal [facility] Comment on above: Result Comment: Adul t Female: Follicular phase 2.4 - 12.6 Ovulation phase 14.0 - 95.6 Luteal phase 1.0 - 11.4 Postmenopausal 7.7 - 58.5 Performed By: #### L [facility] #### [facility] [address] [place], [place] [address] Dr. Meghna Alas US PELVIS AND TRANSVAGon [...] RACQUEL UNLU Date: 2022-07-27 08:10 Normal [facility] CBC AUTO DIFFon 07-26-2022 BASO # 0.1 103/ul Normal 0.0-0.1 [facility] Comment on above: Performed By: #### C BC #### [facility] [address] [address] [address] Meghna Alas Basophils/100 WBC (Bld) 0.8 % Normal 0.2-2.0 [facility] Comment on above: Performed By: #### C BC #### [facility] [address] [address] [address] Meghna Alas EO # 0.2 103/ul Normal 0.0-0.7 [facility] Comment on above: Performed By: #### C BC #### [facility] [address] [place] [address] Dr. Meghna Alas Eosinophils/100 WBC (Bld) 3.7 % Normal 0.9-7.0 [facility] Comment on above: Performed By: #### C BC #### [facility] [address] [place] [address] Dr. Meghna Alas Erythrocyte distribution width (RBC) [Ratio] 11.7 % Normal 11.0-15.0 [facility] Comment on above: Performed By: #### C BC #### [facility] [address] [place] [address] Dr. Meghna Alas Hematocrit (Bld) [Volume fraction] 43.6 % Normal 36.0-48.0 [facility] Comment on above: Performed By: #### C BC #### [facility] [address] [place] [address] Dr. Meghna Alas Hemoglobin (Bld) [Mass/Vol] 14.9 g/dL Normal 12.0-16.0 [facility] Comment on above: Performed By: #### C BC #### [facility] [address] [place] [address] Dr. Meghna Alas IG # 0.02 10e3/ul Normal 0.00-0.03 [facility] Comment on above: Performed By: #### C BC #### [facility] [address] [place] [address] Dr. Meghna Alas IG % 0.3 % Normal 0.0-0.5 [facility] Comment on above: Performed By: #### C BC #### [facility] [address] [place] [address] Dr. Meghna Alas LYMPH # 1.7 103/ul Normal 1.2-3.8 [facility] Comment on above: Performed By: #### C BC #### [facility] [address] [place] [address] Dr. Meghna Alas Lymphocytes/100 WBC (Bld) 27.7 % Normal 20.5-60.0 [facility] Comment on above: Performed By: #### C BC #### [facility] [address] [place] [address] Dr. Meghna Alas MANUAL DIFF REQ NO Normal [facility] Comment on above: Performed By: #### C BC #### [facility] [address] [place] [address] Dr. Meghna Alas MCH (RBC) [Entitic mass] 30.7 pg Normal 26.7-34.0 [facility] Comment on above: Performed By: #### C BC #### [facility] [address] [place] [address] Dr. Meghna Alas MCHC (RBC) [Mass/Vol] 34.2 g/dL Normal 29.9-35.2 [facility] Comment on above: Performed By: #### C BC #### [facility] [address] [place] [address] Dr. Meghna Alas MCV (RBC) [Entitic vol] 89.7 fL Normal 81.0-99.0 [facility] Comment on above: Performed By: #### C BC #### [facility] [address] [place] [address] Dr. Meghna Alas MONO # 0.4 103/ul Normal 0.3-0.8 [facility] Comment on above: Performed By: #### C BC #### [facility] [address] [place] [address] Dr. Meghna Alas Monocytes/100 WBC (Bld) 7.1 % Normal 1.7-12.0 [facility] Comment on above: Performed By: #### C BC #### [facility] [address] [place] [address] Dr. Meghna Alas NEUT # 3.7 103/ul Normal 1.4-6.5 [facility] Comment on above: Performed By: #### C BC #### [facility] [address] [place] [address] Dr. Meghna Alas Neutrophils/100 WBC (Bld) 60.4 % Normal 43.0-75.0 [facility] Comment on above: Performed By: #### C BC #### [facility] [address] [place] [address] Dr. Meghna Alas Platelet mean volume (Bld) [Entitic vol] 11.3 fL Normal 9.5-13.5 [facility] Comment on above: Performed By: #### C BC #### [facility] [address] [place] [address] Dr. Meghna Alas PLT 154 103/ul Normal 150-450 [facility] Comment on above: Performed By: #### C BC #### [facility] [address] [place] [address] Dr. Meghna Alas RBC 4.86 106/ul Normal 4.20-5.40 [facility] Comment on above: Performed By: #### C BC #### [facility] [address] [place] [address] Dr. Meghna Alas WBC 6.2 103/ul Normal 4.0-11.0 [facility] Comment on above: Performed By: #### C BC #### [facility] [address] [place] [address] Dr. Meghna Alas FREE T4on 07-26-2022 Free T4 [Mass/Vol] 1.04 ng/dL Normal 0.76-1.46 [facility] Comment on above: Performed By: #### F T4 #### [facility] [address] [place] [address] Dr. Meghna Alas GLYCOHEMOGLOBIN A1Con 2022 ADA RECOMMENDATION SEE BELOW Normal [facility] Comment on above: Result Comment: ADA RECOMMENDED LIMIT 4.0 - 6.0 ADA THERAPEUTIC TARGET < 7.0 ACTION SUGGESTED > 7.0 Performed By: #### A 1C #### [facility] [address] [address] [address] Meghna Alas Glucose [Mass/Vol] 82 mg/dL Normal [facility] Comment on above: Performed By: #### A 1C #### [facility] [address] [address] [address] Meghna Alas HbA1c (Bld) [Mass fraction] 4.5 % Normal 4.5-6.2 [facility] Comment on above: Performed By: #### A 1C #### [facility] [address] [address] [address] Meghna Alas TSHon 07-26-2022 TSH 1.522 uIU/mL Normal 0.358-3.740 [facility] Comment on above: Performed By: #### T SH #### [facility] [address] [address] [address] Meghna Alas Vital Signs Date Time Vital Sign Value Performing Clinician Facility 02-07-2025 13:41-0400 Body mass index (BMI) [Ratio] 41.88 kg/m2 Yomaira Guerrero [employer] Work Phone: [facility] 02-07-2025 13:41-0400 Body weight 107.23 kg Yomaira Guerrero [employer] Work Phone: [facility] 02-07-2025 13:41-0400 Diastolic blood pressure 82 mm[Hg] Yomaira Guerrero [employer] Work Phone: [facility] 02-07-2025 13:41-0400 Systolic blood pressure 128 mm[Hg] Yomaira Cesar [employer] Work Phone: [facility] 01-31-2025 14:07-0400 Body mass index (BMI) [Ratio] 40.57 kg/m2 Yomaira Guerrero [employer] Work Phone: [facility] 01-31-2025 14:07-0400 Body weight 103.87 kg Yomaira Guerrero [employer] Work Phone: [facility] 01-31-2025 14:07-0400 Diastolic blood pressure 76 mm[Hg] Yomaira Cesar [employer] Work Phone: [facility] 01-31-2025 14:07-0400 Systolic blood pressure 122 mm[Hg] Yomaira Cesar [employer] Work Phone: [facility] 01-16-2025 15:13-0400 Body mass index (BMI) [Ratio] 40.21 kg/m2 Layo Sherwin DO Work Phone: [facility] 01-16-2025 15:13-0400 Body weight 102.97 kg Layo Sherwin DO Work Phone: [facility] 01-16-2025 15:13-0400 Diastolic blood pressure 70 mm[Hg] Layo Sherwin DO Work Phone: [facility] 01-16-2025 15:13-0400 Systolic blood pressure 110 mm[Hg] Layo Sherwin DO Work Phone: [facility] 01-03-2025 10:15-0400 Body mass index (BMI) [Ratio] 39.47 kg/m2 Layo Sherwin DO Work Phone: [facility] 01-03-2025 10:15-0400 Body weight 101.06 kg Layo Sherwin DO Work Phone: [facility] 01-03-2025 10:15-0400 Diastolic blood pressure 74 mm[Hg] Layo Sherwin DO Work Phone: [facility] 01-03-2025 10:15-0400 Systolic blood pressure 118 mm[Hg] Layo Sherwin DO Work Phone: [facility] 12-19-2024 10:06-0400 Body mass index (BMI) [Ratio] 38.76 kg/m2 Layo Sherwin DO Work Phone: [facility] 12-19-2024 10:06-0400 Body weight 99.25 kg Layo Sherwin DO Work Phone: [facility] 12-19-2024 10:06-0400 Diastolic blood pressure 70 mm[Hg] Layo Sherwin DO Work Phone: [facility] 12-19-2024 10:06-0400 Systolic blood pressure 116 mm[Hg] Layo Sherwin DO Work Phone: [facility] 12-06-2024 08:33-0400 Body mass index (BMI) [Ratio] 38.09 kg/m2 Layo Sherwin DO Work Phone: [facility] 12-06-2024 08:33-0400 Body weight 97.52 kg Layo Sherwin DO Work Phone: [facility] 12-06-2024 08:33-0400 Diastolic blood pressure 70 mm[Hg] Layo Sherwin DO Work Phone: [facility] 12-06-2024 08:33-0400 Systolic blood pressure 100 mm[Hg] Layo Sherwin DO Work Phone: [facility] 11-08-2024 14:59-0400 Body mass index (BMI) [...] mass index (BMI) [Ratio] 33.17 kg/m2 Brandy Sissy PA Work Phone: [facility] 09-06-2024 15:31-0400 Body weight 84.94 kg Brandy Sissy PA Work Phone: [facility] 09-06-2024 15:31-0400 Diastolic blood pressure 82 mm[Hg] Brandy Sissy PA Work Phone: [facility] 09-06-2024 15:31-0400 Systolic blood pressure 110 mm[Hg] Brandy Winifred PA Work Phone: [facility] 08-08-2024 [...] 100 mm[Hg] Layo Sherwin DO Work Phone: [facility] 07-29-2024 09:53-0400 Body mass index (BMI) [Ratio] 31.18 kg/m2 [facility] 07-29-2024 09:53-0400 Body weight 79.83 kg [facility] 07-29-2024 09:53-0400 Diastolic blood pressure 72 mm[Hg] [facility] 07-29-2024 09:53-0400 Systolic blood pressure 118 mm[Hg] [facility] 04-06-2024 14:04-0500 Blood Pressure Location Mallory Jauregui [facility] 04-06-2024 14:04-0500 Diastolic blood pressure 74 mm[Hg] Mallory Juventino [facility] 04-06-2024 14:04-0500 Heart rate 80 /min Mallory Sethicross [facility] 04-06-2024 14:04-0500 SaO2% (BldA) [Mass fraction] 100 % Mallory Jauregui [facility] 04-06-2024 14:04-0500 Systolic blood pressure 108 mm[Hg] Malloryly SethiJuventino [facility] 03-22-2024 10:45-0500 Diastolic blood pressure 62 mm[Hg] Juan Chavarria MD Work Phone: [facility] 03-22-2024 10:45-0500 Heart rate 65 /min Juan Chavarria MD Work Phone: [facility] 03-22-2024 10:45-0500 Respiratory rate 17 /min Juan Chavarria MD Work Phone: [facility] 03-22-2024 10:45-0500 SaO2% (BldA) [Mass fraction] 100 % Juan Chavarria MD Work Phone: [facility] 03-22-2024 10:45-0500 Systolic blood pressure 94 mm[Hg] Juan Chavarria MD Work Phone: [facility] 03-22-2024 09:45-0500 Body temperature 97.3 [degF] Juan Chavarria MD Work Phone: 2(319)889-942535 [place] [address] 03-22-2024 08:29-0500 Body height 160 cm Juan Chavarria MD Work Phone: 3(588)[phone] [place] [address] 03-22-2024 08:29-0500 Body mass index (BMI) [Ratio] 29.25 kg/m2 Juan Chavarria MD Work Phone: [facility] 03-22-2024 08:29-0500 Body weight 74.9 kg Juan Chavarria MD Work Phone: 2(424)[phone] [address] 02-23-2024 09:49-0400 Body temperature 97.7 [degF] Juan Chavarria MD Work Phone: 2(620)454-157966 [address] 02-23-2024 09:49-0400 Diastolic blood pressure 65 mm[Hg] Juan Chavarria MD Work Phone: 1(874)662-253066 [address] 02-23-2024 09:49-0400 Heart rate 94 /min Juan Chavarria MD Work Phone: 9(808)795-555735 [place] [address] 02-23-2024 09:49-0400 Respiratory rate 22 /min Juan Chavarria MD Work Phone: [facility] 02-23-2024 09:49-0400 SaO2% (BldA) [Mass fraction] 100 % Juan Chavarria MD Work Phone: [facility] 02-23-2024 09:49-0400 Systolic blood pressure 102 mm[Hg] Juan Chavarria MD Work Phone: 3(595)[phone] [place] [address] 02-23-2024 07:27-0400 Body height 160 cm Juan Chavarria MD Work Phone: [facility] 02-23-2024 07:27-0400 Body mass index (BMI) [Ratio] 29.41 kg/m2 Juan Chavarria MD Work Phone: [facility] 02-23-2024 07:27-0400 Body weight 75.3 kg Juan Chavarria MD Work Phone: [facility] 01-28-2024 10:31-0400 Diastolic blood pressure 59 mm[Hg] Leigh Ann Tuttle MD Work Phone: [facility] 01-28-2024 10:31-0400 Heart rate 71 /min Leigh Ann Tuttle MD Work Phone: [facility] 01-28-2024 10:31-0400 Respiratory rate 20 /min Leigh Ann Tuttle MD Work Phone: [facility] 01-28-2024 10:31-0400 SaO2% (BldA) [Mass fraction] 100 % Leigh Ann Tuttle MD Work Phone: [facility] 01-28-2024 10:31-0400 Systolic blood pressure 101 mm[Hg] Leigh Ann Tuttle MD Work Phone: [facility] 01-28-2024 09:31-0400 Body temperature 98.1 [degF] Leigh Ann Tuttle MD Work Phone: [facility] 01-28-2024 08:48-0400 Body height 160 cm Leigh Ann Tuttle MD Work Phone: [facility] 01-28-2024 08:48-0400 Body mass index (BMI) [Ratio] 29.21 kg/m2 Leigh Ann Tuttle MD Work Phone: [facility] 01-28-2024 08:48-0400 Body weight 74.8 kg Leigh Ann Tuttle MD Work Phone: [facility] 01-14-2024 10:52-0400 Body mass index (BMI) [Ratio] 29.43 kg/m2 Brandy Sheehan PA Work Phone: [facility] 01-14-2024 10:52-0400 Body weight 75.35 kg Brandy Winifred PA Work Phone: [facility] 01-14-2024 10:52-0400 Diastolic blood pressure 70 mm[Hg] Brandy Winifred PA Work Phone: [facility] 01-14-2024 10:52-0400 Systolic blood pressure 120 mm[Hg] Brandy Higginsey PA Work Phone: [facility] 12-28-2023 10:09-0400 Body height 160 cm Juan Chavarria MD Work Phone: [facility] 12-28-2023 10:09-0400 Body mass index (BMI) [Ratio] 30.11 kg/m2 Juan Chavarria MD Work Phone: [facility] 12-28-2023 10:09-0400 Body weight 77.11 kg Juan Chavarria MD Work Phone: [facility] 12-28-2023 10:09-0400 Diastolic blood pressure 81 mm[Hg] Juan Chavarria MD Work Phone: [facility] 12-28-2023 10:09-0400 Heart rate 62 /min Juan Chavarria MD Work Phone: [facility] 12-28-2023 10:09-0400 Systolic blood pressure 119 mm[Hg] Juan Chavarria MD Work Phone: [facility] 2023 08:46-0400 Body height 160 cm Trish Thorpe [employer]ING ASSEMBLER-SYSTEMS ANALYSIS MANAGER Work Phone: [facility] 2023 08:46-0400 Body mass index (BMI) [Ratio] 29.23 kg/m2 Trish Thorpe [employer]BLER-SYSTEMS ANALYSIS MANAGER Work Phone: [facility] 2023 08:46-0400 Body weight 74.84 kg Trish Thorpe [employer]BLER-SYSTEMS ANALYSIS MANAGER Work Phone: [facility] 2023 08:46-0400 Diastolic blood pressure 67 mm[Hg] Trish Thorpe [employer] ASSEMBLER-SYSTEMS ANALYSIS MANAGER Work Phone: [facility] 2023 08:46-0400 Heart rate 72 /min Trish Thorpe [employer]SEMBLER-SYSTEMS ANALYSIS MANAGER Work Phone: [facility] 2023 08:46-0400 Systolic blood pressure 122 mm[Hg] Trish Thorpe [employer] ASSEM[employer]ER-SYSTEMS ANALYSIS MANAGER Work Phone: [facility] 10-02-2023 11:14-0400 Blood Pressure Location Princess Rapp [facility] 10-02-2023 11:14-0400 Body temperature 98.24 [degF] Princess Rapp [facility] 10-02-2023 11:14-0400 Diastolic blood pressure 66 mm[Hg] Princess Rapp [facility] 10-02-2023 11:14-0400 Heart rate 65 /min Princess Rapp [facility] 10-02-2023 11:14-0400 SaO2% (BldA) [Mass fraction] 98 % Princess Rapp [facility] 10-02-2023 11:14-0400 Systolic blood pressure 118 mm[Hg] Princess Rapp [facility] 08-27-2023 17:44-0400 Blood Pressure Location Princess Rapp [facility] 08-27-2023 17:44-0400 Body temperature 98.06 [degF] Princess Rapp [facility] 08-27-2023 17:44-0400 Diastolic blood pressure 76 mm[Hg] Princess Rapp [facility] 08-27-2023 17:44-0400 Heart rate 85 /min Princess Rpap [facility] 08-27-2023 17:44-0400 Respiratory rate 14 /min Princess Rapp [facility] 08-27-2023 17:44-0400 SaO2% (BldA) [Mass fraction] 99 % Princess Rapp [facility] 08-27-2023 17:44-0400 Systolic blood pressure 110 mm[Hg] Princess Rapp [facility] 02-19-2023 07:41-0400 Body temperature 97.7 [degF] Princess Rapp [facility] 02-19-2023 07:41-0400 Diastolic blood pressure 70 mm[Hg] Princess Rapp [facility] 02-19-2023 07:41-0400 Heart rate 81 /min Princess Rapp [facility] 02-19-2023 07:41-0400 SaO2% (BldA) [Mass fraction] 99 % Princess Rapp [facility] 02-19-2023 07:41-0400 Systolic blood pressure 110 mm[Hg] Princess Rapp [facility] 07-24-2021 16:57-0400 Blood Pressure Location Leigh Ann [place] [facility] 07-24-2021 16:57-0400 Body temperature 97.7 [degF] Leigh Ann [place] [facility] 07-24-2021 16:57-0400 Diastolic blood pressure 68 mm[Hg] Leigh Ann [place] [facility] 07-24-2021 16:57-0400 Heart rate 88 /min Leigh Ann [place] [facility] 07-24-2021 16:57-0400 SaO2% (BldA) [Mass fraction] 99 % Leigh Ann [place] [facility] 07-24-2021 16:57-0400 Systolic blood pressure 122 mm[Hg] Leigh Ann [place] [facility] Encounters Encounter Date Encounter Type Care Provider Facility Start: 02-07-2025 End: 02-07-2025 Bamboo flowsheet Yomaira Guerrero NP Work Phone: [facility] Start: 02-07-2025 End: 02-07-2025 Bamboo flowsheet Yomaira Guerrero UPHOLSTERY RESTORER Work Phone: [facility] Start: 02-07-2025 End: 02-07-2025 Clinisync Result Encounter Layo Courtney DO Work Phone: [facility] Unsolicited Start: 02-07-2025 End: 02-07-2025 flow sheet Yomaira Guerrero NP Work Phone: [facility] Comment on above: Third trimester preg rehan ([facility]); 36 weeks gestation of ([facility]) Start: 02-07-2025 End: 02-07-2025 ambulatory YOMAIRA GUERRERO Not Available Start: 02-01-2025 End: 02-01-2025 Clinisync Result Encounter Layo Sherwin DO Work Phone: [facility] Unsolicited Start: 02-01-2025 End: 02-01-2025 Clinisync Result Encounter Layo Sherwin DO Work Phone: [facility] Unsolicited Start: 01-31-2025 End: 01-31-2025 Bamboo flowsheet Yomaira Guerrero UPHOLSTERY RESTORER Work Phone: [facility] Start: 01-31-2025 End: 01-31-2025 Bamboo flowsheet Yomaira Cesar UPHOLSTERY RESTORER Work Phone: [facility] Start: 01-31-2025 End: 01-31-2025 ambulatory YOMAIRA GUERRERO Not Available Start: 01-31-2025 End: 01-31-2025 flow sheet Yomaira Guerrero UPHOLSTERY RESTORER Work Phone: [facility] Comment on above: Third trimester preg rehan ([facility]); 35 weeks gestation of ([facility]); Encounter for in vitro fertilization [...] sheet Layo Sherwin DO Work Phone: [facility] Comment on above: 33 weeks gestation o f ([facility]); Third trimester ([facility]); Group B streptococcal infection; resulting from in vitro fertilization in first trimester ([facility]) Start: 01-16-2025 End: 01-16-2025 ambulatory LAYO SHERWIN [...] flowsheet Layo Sherwin DO Work Phone: [facility] Start: 01-03-2025 End: 01-03-2025 Bamboo flowsheet Layo Sherwin DO Work Phone: [facility] Start: 01-03-2025 End: 01-03-2025 flow sheet Layo Sherwin DO Work Phone: [facility] Comment on above: Third trimester preg rehan ([facility]); 31 weeks gestation of ([facility]); resulting from in vitro fertilization in third trimester ([facility]) Start: 01-03-2025 End: 01-03-2025 ambulatory LAYO SHERWIN Not Available Start: 12-19-2024 End: 12-19-2024 flow sheet Layo Sherwin DO Work Phone: [facility] Comment on above: 29 weeks gestation o f ([facility]); Third trimester ([facility]); Leukocytes in urine; Other microscopic hematuria Start: 12-19-2024 End: 12-19-2024 ambulatory LAYO SHERWIN Not Available Start: 12-06-2024 End: 12-06-2024 Bamboo flowsheet Layo Sherwin DO Work Phone: [facility] Start: 12-06-2024 End: 12-06-2024 Bamboo flowsheet Layo Sherwin DO Work Phone: [facility] Start: 12-06-2024 End: 12-06-2024 Clinisync Result Encounter Layo Sherwin DO Work Phone: [facility] Unsolicited Start: 12-06-2024 End: 12-06-2024 flow sheet Layo Sherwin DO Work Phone: [facility] Comment on above: 27 weeks gestation o f ([facility]); Second trimester ([facility]) Start: 12-06-2024 End: 12-06-2024 ambulatory LAYO SHERWIN Not Available Start: 11-26-2024 End: 11-26-2024 Clinisync Result Encounter Layo Sherwin DO Work Phone: [facility] Unsolicited Start: 11-26-2024 End: 11-26-2024 Clinisync Result Encounter Layo Sherwin DO Work Phone: [facility] Unsolicited Start: 11-08-2024 End: 11-08-2024 flow sheet Layo Sherwin DO Work Phone: [facility] Comment on above: Second trimester pre gnancy ([facility]); 26 weeks gestation of ([facility]); Diabetes mellitus screening Start: 11-08-2024 End: 11-08-2024 ambulatory LAYO SHERWIN Not Available Start: 10-17-2024 End: 10-17-2024 Bamboo flowsheet Layo Sherwin DO Work Phone: [facility] Start: 10-17-2024 End: 10-17-2024 Bamboo flowsheet Layo Sherwin DO Work Phone: [facility] Start: 10-17-2024 End: 10-17-2024 flow sheet Layo Sherwin DO Work Phone: [facility] Comment on above: Acute bilateral low back pain without sciatica (Primary Dx); Second trimester ([facility]); 20 weeks gestation of ([facility]) Start: 10-17-2024 End: 10-17-2024 ambulatory LAYO SHERWIN Not Available Start: 10-11-2024 End: 10-11-2024 flow sheet Layo Sherwin DO Work Phone: [facility] Comment on above: Second trimester pre gnancy; 19 weeks gestation of ; Pruritus Start: 10-11-2024 End: 10-11-2024 ambulatory LAYO SHERWIN Not Available Start: 10-11-2024 End: 10-11-2024 Bamboo flowsheet Layo Sherwin DO Work Phone: [facility] Start: 10-11-2024 End: 10-11-2024 Bamboo flowsheet Layo Sherwin DO Work Phone: [facility] Start: 10-11-2024 End: 10-11-2024 Clinisync Result Encounter Layo Sherwin DO Work Phone: [facility] Unsolicited Start: 10-07-2024 End: 10-07-2024 Clinisync Result Encounter Layo Sherwin DO Work Phone: [facility] External Department Unsolicited Start: 10-07-2024 End: 10-07-2024 Clinisync Result Encounter Layo Sherwin DO Work Phone: [facility] Unsolicited Start: 10-07-2024 End: 10-07-2024 Subsequent hospital visit by physician Myles Mckinney [facility] Ultras[facility] [address] Satnam Comment on above: ([facility]) Start: 10-07-2024 End: 10-07-2024 ambulatory LAYO [facility] Start: 09-22-2024 End: 09-22-2024 ambulatory BRANDY SHEEHAN [...] trimester Start: 08-08-2024 End: 08-08-2024 ambulatory LAYO RAMOSO Not Available Start: 07-29-2024 End: 07-29-2024 Office outpatient visit 5 minutes [facility] Sherwin Nurse [facility] Comment on above: GA: 9w2d Start: 07-29-2024 End: 07-29-2024 ambulatory YOMAIRA GUERRERO Not Available Start: 07-11-2024 End: 07-11-2024 Patient encounter procedure Donya Abernathy [employer]-SYSTEMS ANALYSIS MANAGER Work Phone: [facility] Comment on above: Fertility testing (P rimary Dx); Encounter to determine viability of , single or unspecified fetus Start: 07-11-2024 End: 07-11-2024 ambulatory [facility] Start: 06-30-2024 End: 06-30-2024 ambulatory [facility] Start: 06-23-2024 End: 06-23-2024 [facility] Start: 06-23-2024 End: 06-23-2024 ambulatory [facility] Start: 06-13-2024 End: 06-13-2024 Subsequent hospital visit by physician Juan Chavarria MD Work Phone: [facility] Comment on above: Encounter for assist ed reproductive fertility cycle Start: 06-13-2024 End: 06-13-2024 ambulatory JUAN CHAVARRIA [facility] Start: 06-07-2024 End: 06-07-2024 ambulatory [facility] Start: 06-06-2024 End: 06-06-2024 [facility] Start: 06-06-2024 End: 06-06-2024 Professional / ancillary services management Mac [id number] Kelsy Ultrasound [facility] Comment on above: Female infertility Start: 06-06-2024 End: 06-06-2024 ambulatory [facility] Start: 05-23-2024 End: 05-23-2024 [facility] Start: 04-06-2024 ambulatory Mallory Jauregui Faci lity:[facility] Start: 04-06-2024 End: 04-06-2024 Patient encounter procedure Mallory Jauregui [facility] Start: 03-22-2024 End: 03-22-2024 Subsequent hospital visit by physician Juan Chavarria MD Work Phone: [facility] Comment on above: Encounter for assist ed reproductive fertility cycle Start: 03-22-2024 End: 03-22-2024 ambulatory JUAN CHAVARRIA [facility] Start: 03-21-2024 End: 03-21-2024 ambulatory [facility] Start: 03-20-2024 End: 03-20-2024 Professional / ancillary services management Mac [id number] Kels[facility] Ultrasound [facility] Comment on above: Female infertility Start: 03-20-2024 End: 03-20-2024 ambulatory [facility] Start: 03-19-2024 End: 03-19-2024 Professional / ancillary services management Mac [id number] Kelsy Ultrasound [facility] Comment on above: Female infertility Start: 03-19-2024 End: 03-19-2024 ambulatory [facility] Start: 03-17-2024 End: 03-17-2024 ambulatory [facility] Start: 03-17-2024 End: 03-17-2024 Professional / ancillary services management Mac [id number] Kels[facility] Ultrasound [facility] Comment on above: Female infertility Start: 03-17-2024 End: 03-17-2024 ambulatory [facility] Start: 03-15-2024 End: 03-15-2024 ambulatory [facility] Start: 03-15-2024 End: 03-15-2024 ambulatory DONYA ABERNATHY [facility] Start: 03-15-2024 End: 03-15-2024 Professional / ancillary services management Mac [id number] K[facility] Ultrasound [facility] Comment on above: Female infertility Start: 03-09-2024 End: 03-09-2024 ambulatory [facility] Start: 03-09-2024 End: 03-09-2024 Patient encounter status [facility] Start: 03-09-2024 End: 03-09-2024 Professional / ancillary services management Mac [id number] Kelsy Ultrasound [facility] Comment on above: Female infertility; Pre-procedure lab exam Start: 03-09-2024 End: 03-09-2024 ambulatory AMERICA Del Real [facility] Start: 02-23-2024 End: 02-23-2024 Subsequent hospital visit by physician Juan Chavarria MD Work Phone: [facility] Comment on above: Encounter for assist ed reproductive fertility cycle Start: 02-23-2024 End: 02-23-2024 ambulatory JUAN CHAVARRIA [facility] Start: 02-22-2024 End: 02-22-2024 [facility] Start: 02-21-2024 End: 02-21-2024 Professional / ancillary services management Mac [id number] Kelsy Ultrasound [facility] Comment on above: Female infertility Start: 02-21-2024 End: 02-21-2024 [facility] Start: 02-20-2024 End: 02-20-2024 ambulatory [facility] Start: 02-20-2024 End: 02-20-2024 Professional / ancillary services management Mac [id number] Kelsy Ultrasound [facility] Comment on above: Female infertility Start: 02-20-2024 End: 02-20-2024 ambulatory AMERICA Del Real [facility] Start: 02-18-2024 End: 02-18-2024 ambulatory [facility] Start: 02-18-2024 End: 02-18-2024 Professional / ancillary services management [facility] [id number] Kelsy Ultrasound [facility] Darío Hay Comment on above: Female infertility Start: 02-18-2024 End: 02-18-2024 ambulatory AMERICA R [facility] Start: 02-16-2024 End: 02-16-2024 Professional / ancillary services management [facility] [id number] Kelsy Ultrasound [facility] Comment on above: Female infertility Start: 02-16-2024 End: 02-16-2024 ambulatory BERKSHIRE Gt [facility] Start: 02-09-2024 End: 02-09-2024 Patient encounter status Mac Ultrasound [facility] Start: 02-09-2024 End: 02-09-2024 Professional / ancillary services management [facility] [id number] Kelsy Ultrasound [facility] Comment on above: Pre-procedure lab ex am; Female infertility Start: 02-09-2024 End: 02-09-2024 ambulatory [facility] Start: 02-02-2024 End: 02-02-2024 ambulatory [facility] Start: 01-28-2024 End: 01-28-2024 Subsequent hospital visit by physician Leigh Ann Tuttle MD Work Phone: [facility] Saeedfadi [facility] Comment on above: Endometrial polyp Start: 01-28-2024 End: 01-28-2024 ambulatory LEIGH ANN TUTTLE [facility] Start: 01-25-2024 End: 01-25-2024 ambulatory [facility] Start: 01-25-2024 End: 01-25-2024 Encounter for preprocedural laboratory examination [facility] Start: 01-14-2024 End: 01-14-2024 Enedina flowsyaquelin SEARS Work Phone: [facility] Start: 01-14-2024 End: 01-20-2024 Virgiliobonabor flowsyaquelin SEARS Work Phone: [facility] Start: 01-14-2024 End: 01-20-2024 Clinisync Result Encounter Brandy Higginsbryant SEARS Work Phone: [facility] External Department Unsolicited Start: 01-14-2024 End: 01-14-2024 Patient encounter procedure Brandy Winifred PA Work Phone: [facility] Work Phone: Start: 01-14-2024 End: 01-14-2024 Periodic preventive med est patient 18-39 yrs Brandy Sissy SEARS Work Phone: [facility] Comment on above: Well woman exam with routine gynecological exam Start: 12-28-2023 End: 12-28-2023 Patient encounter procedure Juan Chavarria MD Work Phone: [facility] Comment on above: Fertility testing [Z 31.41] (Primary Dx); 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 [Z31.81, N97.8] Start: 12-28-2023 End: 12-28-2023 ambulatory JUAN CHAVARRIA [facility] Start: 12-25-2023 End: 12-25-2023 ambulatory AFUA GIRALDO [facility] Start: 2023 End: 2023 ambulatory [facility] Start: 2023 End: 2023 Patient encounter procedure Trish Thorpe [employer]ER-SYSTEMS ANALYSIS MANAGER Work Phone: [facility] Comment on above: Encounter for screen ing for other viral diseases (Primary Dx); Encounter for Rh blood typing; Screening for STDs (sexually transmitted diseases); Genetic screening; Fertility testing; Female infertility associated with male factors Start: 2023 End: 2023 Patient encounter status Trish Thorpe [employer] AS[employer]BLER-SYSTEMS ANALYSIS MANAGER Work Phone: [facility] Work Phone: Start: 2023 End: 2023 ambulatory TRISH THORPE [facility] Start: 2023 End: 2023 Encounter for blood typing TRISH Polo [facility] Start: 10-21-2023 ambulatory Princess Rapp Facil ity:[facility] Start: 10-02-2023 End: 10-02-2023 ambulatory Princess Rapp Facility:[facility] Start: 10-02-2023 End: 10-02-2023 Patient encounter procedure Princess Rapp [facility] Start: 08-27-2023 End: 08-27-2023 ambulatory Princess Rapp Facility:[facility] Start: 08-27-2023 End: 08-27-2023 Patient encounter procedure Princess Rapp [facility] Start: 03-25-2023 End: 03-25-2023 Patient encounter procedure Princess Rapp [facility] Start: 02-19-2023 End: 02-19-2023 Patient encounter procedure Princess Rapp [facility] Start: 07-26-2022 End: 07-27-[address] LAYO COURTNEY . Facility:[facility] Start: 07-23-2022 End: 07-23-[address] LAYO COURTNEY . Facility:[facility] Start: 07-24-2021 End: 07-24-2021 Patient encounter procedure Leigh Ann [place] [facility] Procedures Date Procedure Procedure Detail Performing Clinician Start: 02-07-2025 US OB BPP W NON-STRESS Layo Courtney DO Work Phone: Start: 02-07-2025 Urnls dip stick/tabl et rgnt non-auto w/o micrscp Yomaira Guerrero UPHOLSTERY RESTORER Work Phone: Start: 02-01-2025 US OB BPP W NON-STRESS Layo Sherwin DO Work Phone: Start: 02-01-2025 US OB GROWTH Layo Fazi o DO Work Phone: Start: 01-31-2025 Urnls dip stick/tabl et rgnt non-auto w/o micrscp Yomaira Guerrero UPHOLSTERY RESTORER Work Phone: Start: 01-25-2025 US OB BPP [...] nonobstetr ic image dcmtn limited/f/u Donya Abernathy [employer]ER-SYSTEMS ANALYSIS MANAGER Work Phone: Start: 03-22-2024 Follicle puncture oo cyte retrieval any method Donya Abernathy [employer]ER-SYSTEMS ANALYSIS MANAGER Work Phone: Start: 03-20-2024 Us pelvic nonobstetr ic image dcmtn limited/f/u Donya Abernathy [employer]BLER-SYSTEMS ANALYSIS MANAGER Work Phone: Start: 03-20-2024 Assay of estradiol America Gt Dwight [employer] ASSEMBLER-SYSTEMS ANALYSIS MANAGER Work Phone: Start: 03-19-2024 Us pelvic nonobstetr ic image dcmtn limited/f/u Donya Abernathy [employer] ASSEMBLER-SYSTEMS ANALYSIS MANAGER Work Phone: Start: 03-17-2024 Us pelvic nonobstetr ic image dcmtn limited/f/u Donya Abernathy [employer] ASSEMBLER-SYSTEMS ANALYSIS MANAGER Work Phone: Start: 03-17-2024 Assay of estradiol Donya Abernathy FL[employer] SPRING ASSEMBLER-SYSTEMS ANALYSIS MANAGER Work Phone: Start: 03-15-2024 Us pelvic nonobstetr ic image dcmtn limited/f/u Donya Abernathy [employer] ASSEMBLER-SYSTEMS ANALYSIS MANAGER Work Phone: Start: 03-15-2024 Assay of estradiol Donya Abernathy [employer] ASSEMBLER-SYSTEMS ANALYSIS MANAGER Work Phone: Start: 03-09-2024 Us pelvic nonobstetr ic image dcmtn limited/f/u America R Dwight [employer] ASSEMBLER-SYSTEMS ANALYSIS MANAGER Work Phone: Start: 03-09-2024 Blood count hematocrit Donya Abernathy [employer] ASSEMBLER-SYSTEMS ANALYSIS MANAGER Work Phone: Start: 02-23-2024 Follicle puncture oo cyte retrieval any method Beth Warren MD Work Phone: Start: 02-21-2024 Us pelvic nonobstetr ic image dcmtn limited/f/u America R Dwight [employer] ASSEMBLER-SYSTEMS ANALYSIS MANAGER Work Phone: Start: 02-21-2024 Gonadotropin luteini zing hormone Beti Warren MD Work Phone: Start: 02-18-2024 Us pelvic nonobstetr ic image dcmtn limited/f/u America R Dwight [employer] ASSEMBLER-SYSTEMS ANALYSIS MANAGER Work Phone: Start: 02-18-2024 Assay of estradiol America Chavez [employer] ASSEMBLER-SYSTEMS ANALYSIS MANAGER Work Phone: Start: 02-16-2024 Assay of estradiol America Chavez [employer] ASSEMBLER-SYSTEMS ANALYSIS MANAGER Work Phone: Start: 02-09-2024 Blood count hematocrit America Chavez [employer] ASSEMBLER-SYSTEMS ANALYSIS MANAGER Work Phone: Start: 02-09-2024 Us pelvic nonobstetr ic image dcmtn limited/f/u America Chavez [employer] ASSEMBLER-SYSTEMS ANALYSIS MANAGER Work Phone: Start: 01-28-2024 Hysteroscopy bx endometrium&/polypc [...] knee anterior cruciate ligament allograft reconstruction with [id number], debridment medial meniscus tear, patellofemoral chondroplasty-Grade I-II Leigh Ann Covington Tonsillectomy Leig hAnn Covington tubes in the ears Leigh Ann bartholomew Plan of Treatment Date Care Activity Detail Author Start: 2072 RSV High Risk: (Elderly (60+) or Population) (1 - 1-dose 75+ series) RSV High Risk: (Elderly (60+) or Population) (1 - 1-dose 75+ series) [facility] Start: 12-12-2047 Zoster Vaccines (1 of 2) Zoster Vaccines (1 of 2) [facility] Start: 01-13-2027 Screening for malignant neoplasm of cervix [facility] Start: 02-14-2025 End: 02-14-2025 Patient encounter procedure 02/14/2025 2:30 PM EDT Routine [facility] [address] [place] [phone] Layo Courtney DO [address] [facility] [address] [place] [address] [facility] Start: 02-07-2025 End: 02-07-2025 Patient encounter procedure [facility] Comment on above: Arrived Start: 01-31-2025 End: 01-31-2026 CULTURE, GROUP B STREP WITH SUSCEPTIBLITY CULTURE, GROUP B STREP WITH SUSCEPTIBLITY Lab Routine Third trimester ([facility]) Expected: 01/31/2025, Expires: 01/31/2026 [facility] Work Phone: Comment on above: Expected: 01/31/2025, Expires: Start: 01-31-2025 End: 06-02-2025 US for US OB follow up transabdominal approach Imaging Routine Encounter for in vitro fertilization Expected: 01/31/2025, Expires: 06/02/2025 [facility] Comment on above: Expected: 01/31/2025, Expires: Start: 01-31-2025 End: 01-31-2025 Patient encounter procedure 01/31/2025 1:50 PM EDT [facility] [address] [facility] [phone] Yomaira Guerrero, MARGARITO [address] [place] [phone] [facility] Start: 01-30-2025 End: 01-30-2025 Patient encounter procedure 01/30/2025 3:50 PM EDT Rout[facility] [address] [facility] [phone] Yomaira Guerrero, UPHOLSTERY RESTORER [address] [place] [phone] [facility] Start: 01-16-2025 End: 01-16-2025 Patient encounter procedure [facility] Comment on above: Arrived Start: 01-03-2025 End: 07-03-2025 US biophysical profile w non stress test US biophysical profile w non stress test Imaging Routine resulting from in vitro fertilization in third trimester ([facility]) Expected: 01/03/2025 (Approximate), Expires: 07/03/2025 [facility] Work Phone: Comment on above: Expected: 01/03/2025 (Approximate), Expi res: 07/03/2025 Start: 01-03-2025 End: 01-03-2025 Patient encounter procedure [facility] Comment on above: Arrived Start: 01-02-2025 Influenza vaccination Influenza Vaccine (Season Ended) [facility] Start: 12-19-2024 End: 12-19-2024 Professional / ancillary services management 12/19/2024 9:30 AM EDT Ancillary Procedure [facility] [address] [place] [address] [facility] Start: 12-19-2024 End: 12-19-2024 Patient encounter procedure [facility] Start: 12-06-2024 End: 12-06-2024 Patient encounter procedure [facility] Comment on above: Arrived Start: 11-08-2024 End: 11-08-2024 Patient encounter procedure 11/08/2024 2:40 PM EDT Routine [facility] [address] [place] [phone] Layo Courtney, [address] [place], [place] [phone] [facility] Start: 11-08-2024 End: 11-08-2025 CBC [...] mellitus screening Expected: 11/08/2024 (Approximate), Expires: 11/08/2025 [facility] Comment on above: Expected: 11/08/2024 (Approximate), Expi res: 11/08/2025 Start: 10-17-2024 End: 10-17-2024 Patient encounter procedure 10/17/2024 1:00 PM EDT Routine [facility] [address] [place] [address] Layo Courtney DO [address] [facility] [place] [address] Arrived [facility] Comment on above: Arrived Start: 10-11-2024 End: 10-11-2024 [facility] Comment on above: Arrived Start: 10-11-2024 End: 10-11-2025 Bile acids, total Bile acids, total Lab Routine Pruritus Expected: 10/11/2024 (Approximate), Expires: 10/11/2025 [facility] Comment on above: Expected: 10/11/2024 (Approximate), Expi res: 10/11/2025 Start: 10-11-2024 End: 10-11-2025 CBC W Auto Differential panel - Blood CBC and differential Lab Routine Pruritus Expected: 10/11/2024 (Approximate), Expires: 10/11/2025 [facility] Comment on above: Expected: 10/11/2024 (Approximate), Expi res: 10/11/2025 Start: 10-11-2024 End: 10-11-2025 Hepatic function 2000 panel - Serum or Plasma Hepatic function panel Lab Routine Pruritus Expected: 10/11/2024 (Approximate), Expires: 10/11/2025 [facility] Comment on above: Expected: 10/11/2024 (Approximate), Expi res: 10/11/2025 Start: 10-11-2024 End: 10-11-2025 Hepatitis C virus Ab [Presence] in Serum or Plasma by Immunoassay Hepatitis C antibody Lab Routine Pruritus Expected: 10/11/2024 (Approximate), Expires: 10/11/2025 [facility] Work Phone: Comment on above: Expected: 10/11/2024 (Approximate), Expi res: 10/11/2025 Start: 10-11-2024 End: 10-11-2025 Thyrotropin [Units/volume] in Serum or Plasma TSH Lab Routine Pruritus Expected: 10/11/2024 (Approximate), Expires: 10/11/2025 [facility] Comment on above: Expected: 10/11/2024 (Approximate), Expi res: 10/11/2025 Start: 09-06-2024 End: 09-06-2024 Patient encounter procedure [facility] Comment on above: Arrived Start: 09-06-2024 End: 11-06-2024 Alpha fetoprotein, maternal Alpha fetoprotein, maternal Lab Routine Second trimester Expected: 09/06/2024 (Approximate), Expires: 11/06/2024 [facility] Comment on above: Expected: 09/06/2024 (Approximate), Expi res: 11/06/2024 Start: 09-06-2024 End: 12-07-2024 US for US OB 14+ weeks anatomy scan Imaging Routine Screening, , for anatomic survey Expected: 09/06/2024, Expires: 12/07/2024 [facility] Comment on above: Expected: 09/06/2024, Expires: Start: 08-08-2024 End: 08-08-2024 Patient encounter procedure [facility] Comment on above: Arrived Start: 07-29-2024 End: 07-29-2025 ABO/Rh ABO/Rh Lab Routine Missed menses , unspecified gestational age Expected: 07/29/2024 (Approximate), Expires: 07/29/2025 [facility] Comment on above: Expected: 07/29/2024 (Approximate), Expi res: 07/29/2025 Start: 07-29-2024 End: 07-29-2025 Blood type and Indirect antibody screen panel - Blood Type and screen Lab Routine Missed menses , unspecified gestational age Expected: 07/29/2024 (Approximate), Expires: 07/29/2025 [facility] Work Phone: Comment on above: Expected: 07/29/2024 (Approximate), Expi res: 07/29/2025 Start: 07-29-2024 End: 07-29-2025 Drugs of abuse panel - Urine by Screen method Rapid drug screen, urine Lab Routine , unspecified gestational age Encounter for supervision of normal first in first trimester Expected: 07/29/2024 (Approximate), Expires: 07/29/2025 [facility] Comment on above: Expected: 07/29/2024 (Approximate), Expi res: 07/29/2025 Start: 07-11-2024 End: 07-11-2025 Progesterone [Mass/volume] in Serum or Plasma Progesterone Lab Routine Fertility testing Expected: 07/11/2024 (Approximate), Expires: 07/11/2025 [facility] Service Area Work Phone: Comment on above: Expected: 07/11/2024 (Approximate), Expi res: 07/11/2025 Start: 06-23-2024 Orders Only 06/23/2024 Orders Only [facility] [address] [address] Ira Lopez, MISHEL Encounter for test, result unknown [facility] Comment on above: Encounter for test, result unk nown Start: 03-20-2024 End: 03-20-2025 Lutropin [Units/volume] in Serum or Plasma Luteinizing Hormone Lab STAT Female infertility Expected: 03/20/2024 (Approximate), Expires: 03/20/2025 [facility] Work Phone: Comment on above: Expected: 03/20/2024 (Approximate), Expi res: 03/20/2025 Start: 03-20-2024 End: 03-20-2025 Progesterone [Mass/volume] in Serum or Plasma Progesterone Lab STAT Female infertility Expected: 03/20/2024 (Approximate), Expires: 03/20/2025 [facility] Service Area Work Phone: Comment on above: Expected: 03/20/2024 (Approximate), Expi res: 03/20/2025 Start: 03-20-2024 End: 03-20-2024 Professional / ancillary services management 03/20/2024 8:00 AM EST Ancillary Procedure [facility] [address] [place] [phone] [facility] Start: 03-19-2024 End: 03-19-2024 Professional / ancillary services management 03/19/2024 8:30 AM EST Ancillary Procedure [facility] [address] [place] [address] [facility] Start: 03-17-2024 End: 03-17-2025 Estradiol (E2) [Mass/volume] in Serum or Plasma Estradiol Lab STAT Female infertility Expected: 03/17/2024 (Approximate), Expires: 03/17/2025 [facility] Service Area Work Phone: Comment on above: Expected: 03/17/2024 (Approximate), Expi res: 03/17/2025 Start: 03-17-2024 End: 03-17-2025 Progesterone [Mass/volume] in Serum or Plasma [facility] Work Phone: Comment on above: Expected: 03/17/2024 (Approximate), Expi res: 03/17/2025 Start: 03-17-2024 End: 03-17-2024 Professional / ancillary services management 03/17/2024 6:45 AM EST Ancillary Procedure [facility] [address] [address] [facility] Start: 03-15-2024 End: 03-15-2024 Professional / ancillary services management 03/15/2024 6:45 AM EST Ancillary Procedure [facility] [address] [place] [address] [facility] Start: 03-09-2024 End: 03-09-2024 Professional / ancillary services management 03/09/2024 7:15 AM EST Ancillary Procedure Valeria [facility] [address] [place] [address] [facility] Start: 02-23-2024 End: 02-23-2024 Patient encounter procedure 02/23/2024 8:30 AM EDT Appointment TERRY [facility] [address] [place] [address] Juan Chavarria MD [address] Alexia Darío Hay, Brodie [address] [place] [phone] [place] [phone] Manuel[address] Department of Anesthesiology [place] [address] [facility] Start: 02-21-2024 End: 02-21-2024 Professional / ancillary services management 02/21/2024 8:30 AM EDT Ancillary Procedure [facility] [address] [place] [phone] [facility] Start: 02-20-2024 End: 02-17-2025 Estradiol (E2) [Mass/volume] in Serum or Plasma Estradiol Lab STAT Female infertility Expected: 02/20/2024 (Approximate), Expires: 02/17/2025 [facility] Service Area Work Phone: Comment on above: Expected: 02/20/2024 (Approximate), Expi res: 02/17/2025 Start: 02-20-2024 End: 02-17-2025 Progesterone [Mass/volume] in Serum or Plasma Progesterone Lab STAT Female infertility Expected: 02/20/2024 (Approximate), Expires: 02/17/2025 [facility] Work Phone: Comment on above: Expected: 02/20/2024 (Approximate), Expi res: 02/17/2025 Start: 02-20-2024 End: 02-20-2024 Professional / ancillary services management 02/20/2024 8:30 AM EDT Ancillary Procedure [facility] [address] [place] [phone] [facility] Start: 02-18-2024 End: 02-18-2024 Professional / ancillary services management 02/18/2024 7:45 AM EDT Ancillary Procedure [facility] [address] [place] [phone] [facility] Start: 02-16-2024 End: 02-16-2024 Professional / ancillary services management 02/16/2024 7:15 AM EDT Ancillary Procedure [facility] [address] [place] [address] [facility] Start: 02-09-2024 End: 02-09-2024 Professional / ancillary services management 02/09/2024 7:15 AM EDT Ancillary Procedure [facility] [address] [place] [address] [facility] Start: 01-14-2024 End: 01-14-2024 Patient encounter procedure 01/14/2024 11:00 AM EDT Office Visit [facility] [address] [place] [phone] Brandy Sheehan PA [address] [facility] [place] [address] Arrived [facility] Comment on above: Arrived Start: 01-03-2024 COVID-19 Vaccine ( season) COVID-19 Vaccine ( season) [facility] Start: 01-03-2024 COVID-19 Vaccine ( season) COVID-19 Vaccine ( season) [facility] Start: 01-03-2024 Influenza vaccination Influenza Vaccine (#1) [facility] Start: 12-25-2023 End: 12-25-2023 Telemedicine consultation with patient 12/25/2023 9:00 AM EDT Telemedicine Clinical Support [facility] [address] [place] [phone] RipAfua garcia I, LGC [address] [facility] [place] [address] [facility] Start: 2023 End: 12-10-2024 Chlamydia trachomatis and Neisseria gonorrhoeae DNA [Identifier] in Unspecified specimen by EDELMIRA with probe detection [facility] Work Phone: Comment on above: Expected: 2023 (Approximate), Expi res: 12/10/2024 Start: 2023 End: 12-10-2024 Hepatitis B virus surface Ag [Presence] in Serum or Plasma by Immunoassay [facility] Work Phone: Comment on above: Expected: 2023 (Approximate), Expi res: 12/10/2024 Start: 2023 End: 12-10-2024 Hepatitis C virus Ab [Presence] in Serum [facility] Work Phone: Comment on above: Expected: 2023 (Approximate), Expi res: 12/10/2024 Start: 2023 End: 12-10-2024 HIV 1+2 Ab+HIV1 p24 Ag [Presence] in Serum or Plasma by Immunoassay [facility] Work Phone: Comment on above: Expected: 2023 (Approximate), Expi res: 12/10/2024 Start: 2023 End: 12-10-2024 Rubella virus IgG Ab [Units/volume] in Serum [facility] Service Area Work Phone: Comment on above: Expected: 2023 (Approximate), Expi res: 12/10/2024 Start: 2023 End: 12-10-2024 Treponema pallidum IgG+IgM Ab [Presence] in Serum by Immunoassay [facility] Work Phone: Comment on above: Expected: 2023 (Approximate), Expi res: 12/10/2024 Start: 2023 End: 12-10-2024 Varicella zoster virus IgG Ab [Presence] in Serum by Immunoassay [facility] Work Phone: Comment on above: Expected: 2023 (Approximate), Expi res: 12/10/2024 Start: 01-02-2023 COVID-19 Vaccine (2022- season) COVID-19 Vaccine (2022- season) [facility] Start: 12-21-2019 DTaP/Tdap/Td Vaccines (2 - Td or Tdap) DTaP/Tdap/Td Vaccines (2 - Td or Tdap) [facility] Start: 2018 Screening for malignant neoplasm of cervix [facility] Start: 2016 Hepatitis B Vaccines (1 of 3 - 19+ 3-dose series) Hepatitis B Vaccines (1 of 3 - 19+ 3-dose series) [facility] Start: 12-12-2015 Hepatitis C screening Hepatitis C Screening [facility] Start: 2012 HPV Vaccines (1 - 3-dose series) HPV Vaccines (1 - 3-dose series) [facility] Start: 03-14-2010 Varicella vaccination Varicella Vaccines (2 of 2 - 2-dose childhood series) [facility] Start: 01-17-2010 MMR Vaccines (1 of 1 - Standard series) MMR Vaccines (1 of 1 - Standard series) [facility] Start: 1997 HIV screening HIV Screening [facility] Start: 1997 Lipid panel Lipid Panel [facility] Start: 1997 Yearly Adult Physical Yearly Adult Physical [facility] Bacteria identified in Urine by Culture Urine culture Microbiology Routine Missed menses Ordered: 07/29/2024 [facility] Comment on above: Ordered: 07/29/2024 Bacteria identified in Urine by Culture Urine culture Microbiology Routine Leukocytes in urine Other microscopic hematuria Ordered: 12/19/2024 [facility] [employer] Work Phone: Comment on above: Ordered: 12/19/2024 [...] for 1 Occurrences starting 02/23/2024 until 02/23/2024 [facility] Service Area Work Phone: Comment on above: Once (Lab) for 1 Occurrences starting until 02/23/2024 End: 03-22-2024 Choriogonadotropin ( test) [Presence] in Urine POCT , urine manually resulted Point of Care Testing Routine Once (Lab) for 1 Occurrences starting 03/22/2024 until 03/22/2024 [facility] Service Area Work Phone: Comment on above: Once (Lab) for 1 Occurrences starting until 03/22/2024 End: 06-13-2024 Choriogonadotropin ( test) [Presence] in Urine POCT , urine manually resulted Point of Care Testing Routine Once (Lab) for 1 Occurrences starting 06/13/2024 until 06/13/2024 [facility] Service Area Work Phone: Comment on above: Once (Lab) for 1 Occurrences starting until 06/13/2024 Cytology Cervical or vaginal smear or scraping study Pap Smear Pathology and Cytology Routine Well woman exam with routine gynecological exam Ordered: 01/14/2024 [facility] [employer] Work Phone: Comment on above: Ordered: 01/14/2024 [...] Routine Female infertility 02/16/2024 7:17 AM T [facility] Service Area Work Phone: KELSY US Pelvis Limite d Follicles - Follicle Studies Performed KELSY US Pelvis Limited Follicles - Follicle Studies Performed Imaging Routine Female infertility 02/20/2024 9:06 AM EDT [facility] Service Area Work Phone: Rubella antibody, IgG Rubella an tibody, IgG Lab Routine Missed menses , unspecified gestational age Ordered: 07/29/2024 [facility] Comment on above: Ordered: 07/29/2024 SURESWAB(R) ADVANCED VAGINITIS PLUS, TMA SURESWAB(R) ADVANCED VAGINITIS PLUS, TMA Pathology and Cytology Routine STD exposure Ordered: 09/06/2024 [facility] Work Phone: Comment on above: Ordered: 09/06/2024 End: 01-28-2024 Surgical pathology study [facility] Service Ar ea Work Phone: Comment on above: Once (Lab) for 1 Occurrences starting until 01/28/2024, 1 completed Once (Lab) for 1 Occ urrences starting 01/28/2024 until 01/28/2024 Immunizations Immunization Date Immunization Notes Care Provider Fa cility 12-20-2009 meningococcal ACWY vaccine, unspecified formulation Princess Rapp [facility] 12-20-2009 tetanus toxoid, reduced diphtheria toxoid, and acellular pertussis vaccine, adsorbed Princesssourav Rapp [facility] 12-20-2009 varicella virus vaccine Princess Rapp [facility] NEGATED: Highlighted row has not occurred!04-06-2024 influenza virus vaccine, unspecified formulation Mallory Jauregui [facility] NEGATED: Highlighted row has not occurred!06-26-2021 influenza virus vaccine, unspecified formulation Leigh Ann Covington [facility] NEGATED: Highlighted row has not occurred!06-26-2021 SARS-CoV-2 (COVID-19) Ad26 vaccine, recombinant Leigh Ann Covington [facility] NEGATED: Highlighted row has not occurred!01-29-2021 influenza virus vaccine, unspecified formulation Leigh Ann Adria [facility] NEGATED: Highlighted row has not occurred!01-29-2021 SARS-CoV-2 (COVID-19) Ad26 vaccine, recombinant Leigh Ann Covington [facility] NEGATED: Highlighted row has not occurred!05-03-2019 influenza virus vaccine, live, attenuated, for intranasal use Leigh Ann Covington [facility] NEGATED: Highlighted row has not occurred!09-30-2018 influenza virus vaccine, unspecified formulation Leigh Ann Covington [facility] Payers Date Payer Category Payer Managed Care (Private) [id number] [id number] 2022 Private Health Insurance [employer] [id number] 2022 Unknown [id number] 1.13.647.2. [id number] 2022 Unknown [id number] 1997 Unknown [id number] 2.16.840.1.160626.3.579.2. 593 1997 Unknown [id number] 2.16.840.1.551667.3.579.2. 593 1997 Unknown [id number] 2.16.840.1.521524.3.579.2. 727 1997 Unknown [id number] 2.16.840.1.878706.3.579.2. 727 1997 Unknown [id number] 2.16.840.1.600552.3.579.2. 727 1997 Unknown [id number] 2.16.840.1.223349.3.579.2. 727 1997 Unknown [id number] 2.16.840.1.646496.3.579.2. 124 1997 Unknown [id number] 2.16.840.1.060715.3.579.2. 1242 1997 Unknown [id number] 2.16.840.1.593840.3.579.2. 1242 1997 Unknown [id number] 2.16840.1.337996.3.579.2. 1244 1997 Unknown [id number] 2.16840.1.532690.3.579.2. 1244 1997 Unknown [id number] 2.840.1.897129.3.579.2. 1244 1997 Unknown [id number] 2.16840.1.621443.3.579.2. 1244 1997 Unknown [id number] 2.16840.1.737364.3.579.2. 1244 1997 Unknown [id number] 2.16840.1.896050.3.579.2. 1244 1997 Unknown [id number] 2.16840.1.388640.3.579.2. 1244 1997 Unknown [id number] 2.16840.1.644996.3.579.2. 1244 1997 Unknown [id number] 2.16840.1.733951.3.579.2. 1244 1997 Unknown [id number] 2.16840.1.180210.3.579.2. 1244 1997 Unknown [id number] 2.16840.1.713057.3.579.2. 1244 1997 Unknown [id number] 2.16.840.1.100241.3.579.2. 1244 1997 Unknown [id number] 2.16.840.1.724859.3.579.2. 1244 1997 Unknown [id number] 2.16.840.1.342869.3.579.2. 1244 1997 Unknown [id number] 2.16.840.1.630445.3.579.2. 1244 1997 Unknown [id number] 2.16.840.1.776944.3.579.2. 1244 1997 Unknown [id number] 2.16840.1.695015.3.579.2. 1244 1997 Unknown [id number] 2.16840.1.381294.3.579.2. 1244 1997 Unknown [id number] 2.16840.1.670074.3.579.2. 1244 1997 Unknown [id number] 2.16840.1.454800.3.579.2. 1244 1997 Unknown [id number] 2.16840.1.422717.3.579.2. 1244 1997 Unknown [id number] 2.16840.1.177472.3.579.2. 1244 1997 Unknown [id number] 2.16840.1.733277.3.579.2. 1244 1997 Unknown [id number] 2.16840.1.087053.3.579.2. 1244 1997 Unknown [id number] 2.16840.1.828193.3.579.2. 1244 1997 Unknown [id number] 2.16840.1.672480.3.579.2. 1244 1997 Unknown [id number] 2.16840.1.464259.3.579.2. 1245 1997 Unknown [id number] 2.16.840.1.616586.3.579.2. 1244 1997 Unknown [id number] 2.16.840.1.572205.3.579.2. 1244 1997 Unknown [id number] 2.16840.1.795894.3.579.2. 1244 1997 Unknown [id number] 2.840.1.214307.3.579.2. 1244 1997 Unknown [id number] 2.840.1.970797.3.579.2. 1244 1995 Unknown [id number] 2.840.1.863080.3.579.2. 1244 1997 Unknown [id number] 2.0.1.399778.3.579.2. 1244 1997 Unknown [id number] 2.840.1.746877.3.579.2. 1244 1997 Unknown [id number] 2.840.1.686641.3.579.2. 1244 1997 Unknown [id number] 2.840.1.898441.3.579.2. 1244 1997 Unknown [id number] 2840.1.119128.3.579.2. 1258 1997 Unknown [id number] 2.840.1.350740.3.579.2. 125 1997 Unknown [id number] 2.840.1.397356.3.579.2. 1258 1997 Unknown [id number] 2.16840.1.396446.3.579.2. 1258 1997 Unknown [id number] 2.840.1.479153.3.579.2. 1258 1997 Unknown [id number] 2.16.840.1.522638.3.579.2. 9 1997 Unknown [id number] 2.16.840.1.028221.3.579.2. 9 1997 Unknown [id number] 2.16.840.1.474107.3.579.2. 9 1997 Unknown [id number] 2.16.840.1.915902.3.579.2. 1258 1997 Unknown [id number] 2.16.840.1.973228.3.579.2. 9 1997 Unknown [id number] 2.16.840.1.592079.3.579.2. 9 1997 Unknown [id number] 2.16.840.1.649277.3.579.2. 9 1997 Unknown [id number] 2.16.840.1.576129.3.579.2. 9 1997 Unknown [id number] 2.16.840.1.125460.3.579.2. 1259 1959 Unknown [id number] Social History Date Type Detail Facility Start: 07-24-2021 End: 03-05-2023 Tobacco smoking status Never smoked tobacco (finding) [facility] Tobacco smoking status Never [facility] Start: 01-28-2024 End: 07-29-2024 Sex Assigned At Female [facility] Start: 2023 Tobacco use and exposure Smokeless tobacco non-user [facility] Work Phone: Start: 01-28-2024 End: 06-23-2024 Alcoholic beverage intake Ex-drinker (finding) [facility] Work Phone: Start: 01-28-2024 End: 07-29-2024 History of Social function [facility] Work Phone: Start: 2023 Alcohol Comment Occassionally [facility] Work Phone: Start: 1997 Sex assigned at Not on file [facility] Work Phone: Start: 12-01-2023 End: 10-07-2024 Exposure to SARS-CoV-2 (event) Not sure [facility] Start: 02-23-2024 End: 02-07-2025 Alcoholic beverage intake Current drinker of alcohol (finding) [facility] Work Phone: Start: 03-05-2023 Alcohol Comment Beer 1-2 times per m [facility] Start: 12-18-2023 End: 12-28-2023 Exposure to SARS-CoV-2 (event) Unable to assess [facility] Start: 06-08-2024 N[facility] Medical Equipment Procedure Code Equipment Code Equipment Origin al Text Equipment Identifier Dates [id number] Start: 03-01-2024 End: 03-09-2024 Functional Status Date Assessment Result Facility 04-06-2024 Functional Status N/A [facility] 10-02-2023 Functional Status N/A [facility] 08-27-2023 Functional Status N/A [facility] 02-19-2023 Functional Status N/A [facility] Clinical Notes 07-24-2021 to 02-07-2025 Yomaira Guerrero NP - 02/07/2025 1:40 PM Jarrett Elder MA - 01/31/2025 1:50 PM Nahomi Guerrero NP - 01/16/2025 2:50 PM Megan Greer LPN - 01/03/2025 10:00 AM [facility] Instructions Note Date & Type Note Facility 02-07-2025 History of Present illness Narrative Reason for [...] nursing note reviewed. Exam conducted with a automatic outsole cutter present. Vitals: Estimated body mass index is 41.88 kg/m as calculated from the following: Height as of 09/17/22: 5' 3 . Weight as of this encounter: 236 lb 6.4 oz. BP: 128/82 No LMP recorded. Patient is . ASSESSMENT & PLAN ICD-10-CM 1. Third trimester ([facility]) Z34.93 2. 36 weeks gestation of ([facility]) Z3A.36 POCT urinalysis dipstick manually resulted Return [...] by Yomaira Guerrero NP on behalf of: Yomaira Guerrero NP documented in this encounter [facility] 01-31-2025 History of Present illness Narrative Reason [...] nursing note reviewed. Exam conducted with a automatic outsole cutter present. Vitals: Estimated body mass index is 40.57 kg/m as calculated from the following: Height as of 09/17/22: 5' 3 . Weight as of this encounter: 229 lb. BP: 122/76 No LMP recorded. Patient is . ASSESSMENT & PLAN ICD-10-CM 1. Third trimester ([facility]) Z34.93 CULTURE, GROUP B STREP WITH SUSCEPTIBLITY CULTURE, GROUP B STREP WITH SUSCEPTIBLITY CANCELED: CULTURE, GROUP B STREP WITH SUSCEPTIBLITY 2. 35 weeks gestation of ([facility]) Z3A.35 POCT urinalysis dipstick manually resulted 3. [...] Yomaira Guerrero NP documented in this encounter [facility] 01-16-2025 History of Present illness Narrative [...] PLAN ICD-10-CM 1. 33 weeks gestation of ([facility]) Z3A.33 POCT urinalysis dipstick manually resulted 2. Third trimester ([facility]) Z34.93 POCT urinalysis dipstick manually resulted 3. Group B streptococcal infection A49.1 4. resulting from in vitro fertilization in first trimester ([facility]) O09.811 Return OB: Patient presents today for [...] documented in this encounter [facility] 01-03-2025 History of Present illness Narrative [...] nursing note reviewed. Exam conducted with a automatic outsole cutter present. Vitals: Estimated body mass index is 39.47 kg/m as calculated from the following: Height as of 09/17/22: 5' 3 . Weight as of this encounter: 222 lb 12.8 oz. BP: 118/74 No LMP recorded. Patient is . ASSESSMENT & PLAN ICD-10-CM 1. Third trimester ([facility]) Z34.93 POCT urinalysis dipstick manually resulted 2. 31 weeks gestation of ([facility]) Z3A.31 POCT urinalysis dipstick manually resulted Return [...] documented in this encounter [facility] 12-19-2024 History of Present illness Narrative [...] nursing note reviewed. Exam conducted with a automatic outsole cutter present. Vitals: Estimated body mass index is 38.76 kg/m as calculated from the following: Height as of 09/17/22: 5' 3 . Weight as of this encounter: 218 lb 12.8 oz. BP: 116/70 No LMP recorded. Patient is . ASSESSMENT & PLAN ICD-10-CM 1. 29 weeks gestation of ([facility]) Z3A.29 POCT urinalysis dipstick manually resulted 2. Third trimester ([facility]) Z34.93 POCT urinalysis dipstick manually [...] documented in this encounter [facility] 12-06-2024 History of Present illness Narrative [...] PLAN ICD-10-CM 1. 27 weeks gestation of ([facility]) Z3A.27 POCT urinalysis dipstick manually resulted 2. Second trimester ([facility]) Z34.92 POCT urinalysis dipstick manually resulted Return [...] documented in this encounter [facility] 11-08-2024 History of Present illness Narrative [...] ASSESSMENT & PLAN ICD-10-CM 1. Second trimester ([facility]) Z34.92 POCT urinalysis dipstick manually resulted 2. 26 weeks gestation of ([facility]) Z3A.26 POCT urinalysis dipstick manually [...] nursing note reviewed. Exam conducted with a automatic outsole cutter present. Vitals: Estimated body mass index is 35.52 kg/m as calculated from the following: Height as of 09/17/22: 5' 3 . Weight as of this encounter: 200 lb 8 oz. BP: 126/82 No LMP recorded. Patient is . ASSESSMENT & PLAN ICD-10-CM 1. Second trimester ([facility]) Z34.92 POCT urinalysis dipstick manually resulted 2. 20 weeks gestation of ([facility]) Z3A.20 Return OB: Patient presents today for [...] nursing note reviewed. Exam conducted with a automatic outsole cutter present. Vitals: Estimated body mass index is [...] screen, urine; Future Nurse Note: Patient declined [place] [employer] to one Pt is an IVF [...] or undercooked meat, and stay away from [facility]. Patient has also been advised to [...] 07/11/2024 3:54 PM documented in this encounter [facility] Work Phone: 06-13-2024 History of Present [...] Preop diagnosis: Infertility Post op diagnosis: Same Form Building Supervisor: none Depth: 7 cm Curve: anterior Distance [...] 06/13/24 11:24 AM documented in this encounter [facility] Work Phone: 06-13-2024 Hospital Discharge instructions Tisha Sparks RN - 06/13/2024 10:43 AM EST Images from the original note were not included. [facility] [address] [place] [address] Home Going Instructions after Embryo Transfer: After [...] in : Advil, Motrin, Ibuprofen, Aleve, Excedrin, [place], Sudafed, and Pepto-Bismol. Avoid aspirin unless you [...] Sparks 10:43 AM documented in this encounter [facility] Work Phone: 06-06-2024 History of Present [...] instructed. Message sent to front end developer designer to schedule at 8:45 slot at [facility] for US and labs. ZOE FRANCIS on 06/06/24 at 1:12 PM. documented in this encounter [facility] Work Phone: 04-06-2024 Hospital Discharge instructions [...] provider. Document Revised: 09/09/2021 Document Reviewed: 09/09/2021 [employer] Patient Education 2023 [employer] Follow Up Care 03/25/2024 14:07:23 With:Mallory Judd Address: When:Within 6 Month(s) [facility] 03-22-2024 History of Present illness Narrative Associated Order(s): Egg Retrieval Pre-Procedure Diagnose(s): Encounter for assisted reproductive fertility cycle Post-Procedure Diagnose(s): Encounter for assisted reproductive fertility cycle Patient ID: Sydney Romero is a 28 y.o. female. Egg Retrieval Date/Time: 03/22/2024 9:39 AM Performed by: Juan Chavarria MD Authorized by: Donya Abernathy APRN-SYSTEMS ANALYSIS MANAGER Consent: Consent obtained: Verbal and written Consent [...] diagnosis: Female infertility Post op diagnosis: Same Form Building Supervisor: Dr. Warren IV Fluids: 600 cc EBL: 5 cc UOP: Not recorded Specimen: Oocytes Complications: None Number of Oocytes right ovary: 16 Ovarian access (right): Easy Number of Oocytes left ovary: 9 Ovarian access (left): Easy Endometrial thickness: n/a Needle type: Single Additional notes: documented in this encounter [facility] Work Phone: 03-22-2024 Nurse Note Patient discharged to home in stable condition via wheelchair to RIDE HOME: Partner's car. Accompanied by RN. VSS at time of discharge. Discharge instructions given and concerns addressed. Gisell Michel RN 03/22/24 11:08 AM [facility] Work Phone: 03-22-2024 Nurse Note Patient discharged to home in stable condition via wheelchair to RIDE HOME: Partner's car. Accompanied by RN. MOIS at time of discharge. Discharge instructions given and concerns addressed. Gisell Michel RN 03/22/24 11:08 AM documented in this encounter [facility] Work Phone: 03-22-2024 Hospital Discharge instructions Gisell Michel RN - 03/22/2024 8:45 AM EST Images from the original note were not included. [facility] [address]. [place] [id number] Home Going Instructions after Egg Retrieval: Activity: [...] 2 weeks following your oocyte retrieval. Call [phone] to speak with a Physician or Nurse if you have any concerns. Gisell Michel 8:45 AM [facility] [address] [place], [place] IVF LAB EMBRYO UPDATE PROTOCOL The [...] biopsied and frozen. Gisell Michel 8:44 AM [facility] [address] [place] [address] Frozen Embryo Transfer Instructions After your egg retrieval, follow up with your IVF nurse within 3-4 days Thursday-Thursday regarding the plan for your frozen embryo transfer (FET) cycle. Your IVF nurse will order and review with you the medications you will be using for the cycle. You will be sent an email from [employer] to fill out your Frozen Embryo Treatment [...] RN 8:44 AM documented in this encounter [facility] Work Phone: 03-20-2024 History of Present [...] Arrive 60 minutes prior to procedure at [facility]. Patient verbalizes understanding of plan and location of procedure. Patient scheduled to go to [facility] tomorrow for post trigger labs Krissy Yanes 03/20/2024 11:01 AM documented in this encounter [facility] Work Phone: 03-19-2024 History of Present [...] 03/19/24 11:02 AM documented in this encounter [facility] Work Phone: 03-17-2024 History of Present [...] 03/17/24 1:04 PM documented in this encounter [facility] Work Phone: 03-15-2024 History of Present [...] questions. Transferred to the front end developer designer to schedule appt for 03/17. Allyssa Robles 03/15/24 1:27 PM documented in this encounter [facility] Work Phone: 03-09-2024 History of Present [...] Yes; PGT-M Test Ready: No ; Company: [employer] PGT order scanned into [employer], confirmed by: LORI on Plan to freeze: [...] on 03/09 by delano On site at [facility] Additional details: Allyssa Robles 03/09/2024 7:50 AM TC to pt to confirm today's plan; LM; will send MC message. Allyssa Robles 03/09/24 2:02 PM Pt called back to confirm plan; Pt has all meds and all questions answered. She plans to purchase FET meds before the end of the year (they were ordered back in February) and will call [facility] to have them filled as she has met deductible and REECE needs a PA. Allyssa Robles 03/09/24 2:33 PM documented in this encounter [facility] Work Phone: 02-23-2024 Nurse Note Patient discharged to home in stable condition via wheelchair accompanied by this RN to RIDE HOME: Partner's car. Discharge instructions given and concerns addressed. Patient verbalizes understanding of all information provided and is agreeable. [facility] 02-23-2024 Nurse Note Patient discharged to home in stable condition via wheelchair accompanied by this RN to RIDE HOME: Partner's car. Discharge instructions given and concerns addressed. Patient verbalizes understanding of all information provided and is agreeable. Patient up to bathroom independently, no complaints of pain or dizziness, able to void without issue, reports scant amount of bleeding. documented in this encounter [facility] Work Phone: 02-23-2024 Nurse Note Patient up to bathroom independently, no complaints of pain or dizziness, able to void without issue, reports scant amount of bleeding. [facility] Work Phone: 02-23-2024 History of Present [...] diagnosis: Female infertility Post op diagnosis: Same Form Building Supervisor: none IV Fluids: 500 cc EBL: 5 cc UOP: Not recorded Specimen: Oocytes Complications: None Number of Oocytes right ovary: 17 Ovarian acc ss (right): Easy Number of Oocytes left ovary: 13 Ovarian access (left): Easy Endometrial thickness: n/a Needle type: Single Additional notes: documented in this encounter [facility] Work Phone: 02-23-2024 Hospital Discharge instructions Donya Rosas RN - 02/23/2024 7:23 AM EDT Images from the original note were not included. [facility] [address] [place] [id number] Home Going Instructions after Egg Retrieval: Activity: [...] 2 weeks following your oocyte retrieval. Call [phone] to speak with a Physician or Nurse if you have any concerns. DONYA ROSAS 7:23 AM [facility] [address] [place], [place] IVF LAB EMBRYO UPDATE PROTOCOL The [...] biopsied and frozen. DONYA ROSAS 7:23 AM [facility] [address] [place], [place] IVF LAB EMBRYO UPDATE PROTOCOL The [...] biopsied and frozen. DONYA ROSAS 7:23 AM [facility] [address] [place] [address] Frozen Embryo Transfer Instructions After your egg retrieval, follow up with your IVF nurse within 3-4 days Thursday-Thursday regarding the plan for your frozen embryo transfer (FET) cycle. Your IVF nurse will order and review with you the medications you will be using for the cycle. You will be sent an email from [employer] to fill out your Frozen Embryo Treatment [...] RN 7:32 AM documented in this encounter [facility] Work Phone: 02-21-2024 History of Present [...] 02/21/2024 9:09 AM documented in this encounter [facility] Work Phone: 02-20-2024 History of Present [...] Beth Judge RN documented in this encounter [facility] Work Phone: 02-18-2024 History of Present [...] Beth Judge RN documented in this encounter [facility] Work Phone: 02-16-2024 History of Present [...] Will look into getting insulin syringes from [facility]. Team will contact patient later today with results and plan. Krissy Yanes 02/16/2024 7:27 AM LM with patient with plan to start Cetrotide today, drop FSH to 225 units and continue Menopur 75 units. Patient is already scheduled for 02/17 for repeat follicle scan and e2. Krissy Yanes 02/16/24 1:34 PM documented in this encounter [facility] Work Phone: 02-09-2024 History of Present [...] Yes; PGT-M Test Ready: No /A; Company: [employer] PGT order scanned into [employer], confirmed by: LORI on 02/09/2024 Plan to freeze: embryos [employer] forms/out waiver complete: Yes Does patient have medications onhand? Yes Pharmacy: [facility] pass signed off: Yes LORETTA on 02/05/2024 [...] 02/09/24 1:16 PM documented in this encounter [facility] Work Phone: 01-28-2024 Nurse Note Patient discharged to home in stable condition via wheelchair to RIDE HOME: Partner's car. Discharge instructions given and concerns addressed. [facility] Work Phone: 01-28-2024 Nurse Note Patient discharged to home in stable condition via wheelchair to RIDE HOME: Partner's car. Discharge instructions given and concerns addressed. documented in this encounter [facility] Work Phone: 01-28-2024 History of Present [...] no immediate complications documented in this encounter [facility] Work Phone: 01-28-2024 Hospital Discharge instructions Ira Lopez RN - 01/28/2024 8:20 AM EDT Images from the original note were not included. [facility] [address] [place] [address] Home Going Instructions after Polypectomy: Activity: We [...] Lopez 8:20 AM documented in this encounter [facility] Work Phone: 01-14-2024 History of Present [...] nursing note reviewed. Exam conducted with a automatic outsole cutter present. Vitals: Estimated body mass index is [...] TREATMENT Saw KELSY physician in [facility] Dr. Vergara Was told needed IVF, oligospermia Hysterosalpingogram: 2023, bilateral tubal patency Saline Infused Sonography: 07/2023, normal uterine cavity small uterine polyp noted (not removed as of yet) GENERALIST Pelvic Ultrasound: 07/2023 AM[facility] 2.01 Relationship Status: x 2 years OB Hx G0 OB History 0 Para 0 Term 0 0 AB 0 Living 0 SAB 0 IAB 0 Ectopic 0 Multiple 0 Live Births 0 GENERALIST HISTORY History of STD or PID: No [...] 12/28/2023 10:39 AM documented in this encounter [facility] Work Phone: 2023 History of Present illness Narrative Visit Type: In Person NEW FERTILITY PATIENT VISIT Referred by: insurance referral Accompanied today by: spouse Sydney Romero is a 27 y.o. female who presents with Infertility TTC x 2 years PRIOR EVALUATION / TREATMENT Saw [facility] physician in [facility] Dr. Vergara Was told needed IVF, oligospermia Hysterosalpingogram: 2023, bilateral tubal patency Saline Infused Sonography: 07/2023, normal uterine cavity small uterine polyp noted (not removed as of yet) GENERALIST Pelvic Ultrasound: 07/2023 AM[facility] 2.01 Prior Labs [...] Ectopic 0 Multiple 0 Live Births 0 GENERALIST HISTORY History of STD or PID: No [...] mg daily Recommend Consult with Dr. Meyer [phone] Recommend repeat SA with 48-72 hours abstinence [...] 2023 8:52 AM documented in this encounter [facility] Work Phone: 2023 Instructions SMITH Mina - 2023 8:45 AM EDT Recommend Male Vitamins Discussed as follows: Co-Q10 200 mg daily L-Carnitine 200-500 mg daily Vitamin C 500 mg daily Recommend Consult with Dr. Meyer [phone] Recommend repeat SA with 48-72 hours abstinence Recommend Female Vitamins: vitamin Vitamin D (total of 2,000 international units daily) CoQ10 600 mg daily documented in this encounter [facility] Work Phone: 10-02-2023 Hospital Discharge instructions [...] food choices, such as grocery stores and [employer]. What are the signs or symptoms? The [...] and how much exercise you get. Take ozbn-tec-rgnicge and prescription medicines only as told by [...] provider. Document Revised: 11/26/2021 Document Reviewed: 11/26/2021 [employer] Patient Education 2022 [employer]. 10/02/2023 12:54:15 BMI for Adults BMI for [...] numbers. This can be done either in Italian (U.S[place] or metric measurements. Note that charts and online BMI calculators are available to help you find your BMI quickly and easily without having to do these calculations yourself. To calculate your BMI in Italian ([place].S.) measurements: 1.Measure your weight in pounds [...] Centers for Disease Control and Prevention: www.cdc.gov [employer] [place] [employer]: www.heart.org National Heart, Lung, and Blood [place]: www.nhlbi.nih.gov Summary Body mass index (BMI) is a number that is calculated from a person's weight and height. BMI may help estimate how much of a person's weight is composed of fat. BMI can help identify those who may be at higher risk for certain medical problems. BMI can be measured using Italian measurements or metric measurements. BMI charts are used to identify whether you are underweight, normal weight, overweight, or obese. This information is not intended to replace advice given to you by your health care provider. Make sure you discuss any questions you have with your health care provider. Document Revised: 01/11/2020 Document Reviewed: 11/18/2019 [employer] Patient Education 2022 [employer]. 10/02/2023 12:54:13 Migraine Headache Migraine Headache A [...] Follow these instructions at home: Medicines Take ovdf-doe-ijwegxt and prescription medicines only as told by your health care provider. Ask your health care provider if the medicine prescribed to you: ?Requires you to avoid driving or using heavy machinery. ?Can cause constipation. You may need to take these actions to prevent or treat constipation: ?Drink enough fluid to keep your urine pale yellow. ?Take cfbq-oip-jpugnmg or prescription medicines. ?Eat foods that are [...] provider. Document Revised: 08/12/2019 Document Reviewed: 06/02/2019 [employer] Patient Education 2022 [employer]. 10/02/2023 12:54:11 Form - Headache Record Form [...] these instructions at home: Take or apply bfen-mrh-mnknfeg and prescription medicines only as told by your health care provider. Use creams or ointments to moisturize your skin. Do not use lotions. Learn what triggers or irritates your symptoms so you can avoid these things. Treat symptom flare-ups quickly. Do not scratch your skin. This can make your rash worse. Keep all follow-up visits. This is important. Where to find more information [employer]: aad.org National Eczema Association: [...] provider. Document Revised: 01/28/2021 Document Reviewed: 01/28/2021 [employer] Patient Education 2022 [employer]. 10/02/2023 12:54:06 BMI for Adults BMI for [...] numbers. This can be done either in Italian (U.S.) or metric measurements. Note that charts and online BMI calculators are available to help you find your BMI quickly and easily without having to do these calculations yourself. To calculate your BMI in Italian (U.S.) measurements: 1.Measure your weight in pounds [...] Centers for Disease Control and Prevention: www.cdc.gov [employer] [place] [employer]: www.heart.org National Heart, Lung, and Blood [place]: www.nhlbi.nih.gov Summary Body mass index (BMI) is a number that is calculated from a person's weight and height. BMI may help estimate how much of a person's weight is composed of fat. BMI can help identify those who may be at higher risk for certain medical problems. BMI can be measured using Italian measurements or metric measurements. BMI charts are used to identify whether you are underweight, normal weight, overweight, or obese. This information is not intended to replace advice given to you by your health care provider. Make sure you discuss any questions you have with your health care provider. Document Revised: 01/11/2020 Document Reviewed: 11/18/2019 [employer] Patient Education 2022 [employer]. Follow Up Care 09/22/2023 13:18:17 With:Princess Dumont FAM, MED Address: Deborah Schrader, [address] [address]- Business (1) When:07/08/2023 Comments:for f/u [facility] 08-27-2023 Hospital Discharge instructions [...] 1.Identify the foods that contain carbohydrates: Rice. Moody. Milk. Strawberries. 2.Calculate how many servings you [...] and snacks. Where to find more information [employer] [place] [employer]: diabetes.org Centers for Disease Control [...] provider. Document Revised: 11/21/2020 Document Reviewed: 11/21/2020 [employer] Patient Education 2022 [employer] 08/27/2023 19:11:56 Calorie Counting for Weight [...] provider. Document Revised: 05/31/2020 Document Reviewed: 05/31/2020 [employer] Patient Education 2022 [employer]. 08/27/2023 19:11:54 Exercising to Lose Weight Exercising [...] health care provider or diet and nutrition educator (dietitian). This may include: ?Eating fewer calories. [...] right away. Call your local emergency services (481 in the [place] Do not drive yourself [...] provider. Document Revised: 06/16/2021 Document Reviewed: 06/16/2021 [employer] Patient Education 2022 [employer]. 08/27/2023 19:11:53 BMI for Adults BMI for [...] numbers. This can be done either in Italian ([place] or metric measurements. Note that charts and online BMI calculators are available to help you find your BMI quickly and easily without having to do these calculations yourself. To calculate your BMI in Italian ([place].S.) measurements: 1.Measure your weight in pounds [...] Centers for Disease Control and Prevention: www.cdc.gov [employer]: www.heart.org National Heart, Lung, and Blood [place]: www.nhlbi.nih.gov Summary Body mass index (BMI) is a number that is calculated from a person's weight and height. BMI may help estimate how much of a person's weight is composed of fat. BMI can help identify those who may be at higher risk for certain medical problems. BMI can be measured using Italian measurements or metric measurements. BMI charts are used to identify whether you are underweight, normal weight, overweight, or obese. This information is not intended to replace advice given to you by your health care provider. Make sure you discuss any questions you have with your health care provider. Document Revised: 01/11/2020 Document Reviewed: 11/18/2019 [employer] Patient Education 2022 [employer]. 08/27/2023 19:11:48 Musculoskeletal Pain Musculoskeletal Pain Musculoskeletal [...] mouth or applied to the skin. Take kfht-qsy-dzhbdoo and prescription medicines only as told by [...] provider. Document Revised: 08/23/2020 Document Reviewed: 08/01/2020 [employer] Patient Education 2022 [employer]. 08/27/2023 19:05:09 Cervicogenic Headache Cervicogenic Headache In [...] includes your primary health care provider, a automotive painter, a neurologist, and a physical therapist. Follow these instructions at home: Take drtk-onm-nbcvxmx and prescription medicines only as told by [...] includes your primary health care provider, a automotive painter, a neurologist, and a physical therapist. This information is not intended to replace advice given to you by your health care provider. Make sure you discuss any questions you have with your health care provider. Document Revised: 10/24/2021 Document Reviewed: 10/24/2021 [employer] Patient Education 2022 [employer] 08/27/2023 19:05:07 Form - Headache Record [...] Follow these instructions at home: Medicines Take kunw-nlq-anvvpzw and prescription medicines only as told by [...] for Headache and Migraine Patients (CHAMP): headachemigraine.org [employer] [place] Mig[employer]: americanmigrainefoundation.org National Headache Foundation: headaches.org [...] provider. Document Revised: 06/06/2020 Document Reviewed: 06/06/2020 [employer] Patient Education 2022 [employer]. 08/27/2023 19:05:03 BMI for Adults BMI for [...] numbers. This can be done either in Italian (U.S.) or metric measurements. Note that charts and online BMI calculators are available to help you find your BMI quickly and easily without having to do these calculations yourself. To calculate your BMI in Italian (U.S.) measurements: 1.Measure your weight in pounds [...] Centers for Disease Control and Prevention: www.cdc.gov [employer]: www.heart.org National Heart, Lung, and Blood [place]: www.nhlbi.nih.gov Summary Body mass index (BMI) is a number that is calculated from a person's weight and height. BMI may help estimate how much of a person's weight is composed of fat. BMI can help identify those who may be at higher risk for certain medical problems. BMI can be measured using Italian measurements or metric measurements. BMI charts are used to identify whether you are underweight, normal weight, overweight, or obese. This information is not intended to replace advice given to you by your health care provider. Make sure you discuss any questions you have with your health care provider. Document Revised: 01/11/2020 Document Reviewed: 11/18/2019 [employer] Patient Education 2022 [employer]. 08/27/2023 19:05:01 Health Maintenance, Female Health Maintenance, [...] provider. Document Revised: 09/09/2021 Document Reviewed: 09/09/2021 [employer] Patient Education 2022 [employer]. Follow Up Care 08/17/2023 08:42:02 With:Princess Dumont FAM, MED Address: Deborah Schrader, [facility] [address] [address]- When:Within 6 Week(s) Comments:weight loss and headaches [facility] 02-19-2023 Evaluation + Plan note Future Scheduled TestsU Protein/Creat Ratio 02/19/23HgbA1c 02/19/23Microalbumin Level Urine 02/19/23TSH With T4fr Reflex 02/19/23Vitamin D 25 Hydroxy 02/19/23CBC w/ Auto Diff 02/19/23Comprehensive Metabolic Panel 02/19/23Lipid Panel 02/19/23XR Spine Cervical 4 or 5 Views 02/19/23 [facility] 02-19-2023 Hospital Discharge instructions [...] includes your primary health care provider, a automotive painter, a neurologist, and a physical therapist. Follow these instructions at home: Take valx-csk-bggqces and prescription medicines only as told by [...] includes your primary health care provider, a automotive painter, a neurologist, and a physical therapist. This information is not intended to replace advice given to you by your health care provider. Make sure you discuss any questions you have with your health care provider. Document Revised: 10/24/2021 Document Reviewed: 10/24/2021 [employer] Patient Education 2022 [employer]. 02/19/2023 08:34:09 Migraine Headache Migraine Headache A [...] Follow these instructions at home: Medicines Take jhph-hvj-usulvsn and prescription medicines only as told by your health care provider. Ask your health care provider if the medicine prescribed to you: ?Requires you to avoid driving or using heavy machinery. ?Can cause constipation. You may need to take these actions to prevent or treat constipation: ?Drink enough fluid to keep your urine pale yellow. ?Take pjjk-wwb-psqjowt or prescription medicines. ?Eat foods that are [...] provider. Document Revised: 09/18/2021 Document Reviewed: 09/18/2021 [employer] Patient Education 2022 [employer] 02/19/2023 01:02:45 General Headache Without Cause [...] help with your condition: Managing pain Take qice-zue-wigwffs and prescription medicines only as told by [...] provider. Document Revised: 09/18/2021 Document Reviewed: 09/18/2021 [employer] Patient Education 2022 [employer] 02/19/2023 01:02:42 Form - Headache Record [...] provider. Document Revised: 09/18/2021 Document Reviewed: 09/18/2021 [employer] Patient Education 2022 [employer]. 02/19/2023 01:02:37 Cervicogenic Headache Cervicogenic Headache In [...] includes your primary health care provider, a automotive painter, a neurologist, and a physical therapist. Follow these instructions at home: Take wxng-ccl-lqbjnta and prescription medicines only as told by [...] includes your primary health care provider, a automotive painter, a neurologist, and a physical therapist. This information is not intended to replace advice given to you by your health care provider. Make sure you discuss any questions you have with your health care provider. Document Revised: 10/24/2021 Document Reviewed: 10/24/2021 [employer] Patient Education 2022 [employer]. 02/19/2023 01:02:35 Chronic Migraine Headache Chronic Migraine [...] Follow these instructions at home: Medicines Take yvrn-iko-rilfeyq and prescription medicines only as told by [...] for Headache and Migraine Patients (CHAMP): headachemigraine.org [employer] [place] Mig[employer] Foundation: americanmigrainefoundation.org National Headache Foundation: headaches.org [...] provider. Document Revised: 06/06/2020 Document Reviewed: 06/06/2020 [employer] Patient Education 2022 [employer]. Follow Up Care 02/17/2023 08:10:14 With:Princess Dumont FAM, [employer] Address: [address] [place] [phone]- When:Within 1 Month(s) Comments:headaches. neck pain With:Princess Dumont FAM, MED Address: [address] [place] [phone]- When:Within 1 Year(s) Comments:annual wellness, anxiety/ depression [facility] 07-24-2021 Hospital Discharge instructions [...] height. This can be done either in Italian (U.S.) or metric measurements. Note that charts are available to help you find your BMI quickly and easily without having to do these calculations yourself. To calculate your BMI in Italian ([place].S.) measurements, your health care provider will: [...] medical problems. BMI can be measured using Italian measurements or metric measurements. To interpret your [...] 12/30/2004 Document Revised: 04/02/2018 Document Reviewed: 03/03/2018 [employer] Patient Education 2020 [employer]. 07/24/2021 17:16:58 Health Maintenance, Female Health Maintenance, [...] 11/03/2011 Document Revised: 04/13/2019 Document Reviewed: 04/13/2019 [employer] Patient Education 2020 [employer] Follow Up Care 06/26/2021 18:00:45 With:Leigh Ann Covington CNP Address: When: only if needed [facility] Evaluation + Plan note Future Appointments Appointment Date:10/03/2021 01:00:00 PM Scheduled Provider:Naya ABDI Location:[facility] Appointment Type:[facility] Evaluation + Plan note Future Appointments Appointment Date:03/25/2023 07:00:00 AM Scheduled Provider:Princess Dumont Location:[facility] Appointment Type: Open Future Scheduled TestsU Protein/Creat Ratio 02/19/23HgbA1c 02/19/23Microalbumin Level Urine 02/19/23TSH With T4fr Reflex 02/19/23Vitamin D 25 Hydroxy 02/19/23CBC w/ Auto Diff 02/19/23Comprehensive Metabolic Panel 02/19/23Lipid Panel 02/19/23XR Spine Cervical 4 or 5 Views 02/19/23 [facility] Evaluation + Plan note Future Appointments Appointment Date:10/21/2023 07:20:00 AM Scheduled Provider:Princess Dumont Location:[facility] Appointment Type: Open Future Scheduled TestsTSH With T4fr Reflex 02/19/23Vitamin D 25 Hydroxy 02/19/23CBC w/ Auto Diff 02/19/23Comprehensive Metabolic Panel 02/19/23Lipid Panel 02/19/23XR Spine Cervical 4 or 5 Views 02/19/23 [facility] Evaluation + Plan note Future Appointments Appointment Date:10/05/2024 07:00:00 AM Scheduled Provider:Mallory Judd Location:[facility] Appointment Type: Open [facility] Evaluation note Diagnosis Endometrial polyp Polyp of corpus uteri documented in this encounter [facility] Work Phone: Evaluation note* Diagnosis Pre-procedure lab exam Pre-procedural laboratory examination Female infertility Female infertility of unspecified origin documented in this encounter [facility] Work Phone: Evaluation note* Diagnosis Female infertility Female infertility of unspecified origin documented in this encounter [facility] Work Phone: Evaluation note* Diagnosis Female infertility Female infertility of unspecified origin documented in this encounter [facility] Work Phone: [phone] note* Diagnosis Encounter for assisted reproductive fertility cycle Encounter for assisted reproductive fertility procedure cycle documented in this encounter [facility] Work Phone: [phone] note* Diagnosis Female infertility Female infertility of unspecified origin Pre-procedure lab exam Pre-procedural laboratory examination documented in this encounter [facility] Work Phone: [phone] note* Diagnosis Female infertility Female infertility of unspecified origin documented in this encounter [facility] Work Phone: [phone] note* Diagnosis Female infertility Female infertility of unspecified origin documented in this encounter [facility] Work Phone: [phone] note* Diagnosis Female infertility Female infertility of unspecified origin documented in this encounter [facility] Work Phone: [phone] note* Diagnosis Encounter for assisted reproductive fertility cycle Encounter for assisted reproductive fertility procedure cycle documented in this encounter [facility] Work Phone: [phone] note* Diagnosis Encounter for assisted reproductive fertility cycle Encounter for assisted reproductive fertility procedure cycle documented in this encounter [facility] Work Phone: [phone] note* Diagnosis Well woman exam with routine gynecological exam Routine gynecological examination documented in this encounter [facility] Healthcare[facility]* Diagnosis Encounter for screening for other viral diseases- Primary Encounter for Rh blood typing Encounter for blood typing Screening for STDs (sexually transmitted diseases) Screening examination for venereal disease Genetic screening Other genetic screening Fertility testing Female infertility associated with male factors Female infertility of other specified origin documented in this encounter [facility] Work Phone: [phone] note* Diagnosis Fertility testing [Z31.41]- Primary Fertility testing 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 [Z31.81, N97.8] documented in this encounter [facility] Work Phone: [phone] note* Diagnosis Endometrial polyp Polyp of corpus uteri documented in this encounter [facility] Work Phone: [phone] note* Diagnosis Female infertility Female infertility of unspecified origin documented in this encounter [facility] Work Phone: Evaluation note* Diagnosis Encounter for assisted reproductive fertility cycle Encounter for assisted reproductive fertility procedure cycle documented in this encounter [facility] Work Phone: Evaluation note* Diagnosis Encounter for assisted reproductive fertility cycle Encounter for assisted reproductive fertility procedure cycle Encounter for test, result unknown documented in this encounter [facility] Work Phone: Evaluation note* Diagnosis Encounter to determine viability of , single or unspecified fetus documented in this encounter [facility] Work Phone: Evaluation note* Diagnosis Missed [...] note* Diagnosis (HHS-HCC) documented in this encounter [facility] Work Phone: Evaluation note* Diagnosis Second [...] procedure cycle [facility] Diagnosis Third trimester (HHS-HCC) state, incidental 36 weeks gestation of (HHS-HCC) [facility] Narrative No data available for this section [facility] Hospital Discharge instructions No data available for this section [facility] Progress note No data available for this section [facility] Reason for referral (narrative)* Consultation (Routine) - Authorized Specialty Diagnoses / Procedures Referred By Alejandro hyatt Referred To Contact Genetics Diagnoses Genetic screening Trish Thorpe APRN-CNP [address] [id number] Referral ID Status Reason Start Date Expiration Date Visits Requested Visits Authorized [id number] Authorized Specialty Services Required 2023 12/10/2024 1 1 [facility] Work Phone: Reason for visit Narrative* Imaging (Routine) - Authorized Specialty Diagnoses / Procedures Referred By Alejandro hyatt Referred To Contact Radiology Diagnoses Female infertility Procedures KELSY US Pelvis Limited Follicles - Follicle Studies Performed America Chavez APRN-SYSTEMS ANALYSIS MANAGER [address] [place] [address] Phone: tel: fax: Referral ID Status Reason Start Date Expiration Date Visits Requested Visits Authorized [id number] Authorized Perform Procedure 02/02/2024 02/01/2025 8 8 [facility] Work Phone: Reason for visit Narrative* Imaging (Routine) - Pending Review Specialty Diagnoses / Procedures Referred By Contac t Referred To Contact Radiology Diagnoses Female infertility Procedures KELSY US Pelvis Limited Follicles - Follicle Studies Performed America Chavez, FLAT SPRING ASSEMBLER-SYSTEMS ANALYSIS MANAGER [address] [place] [address] Phone: tel: fax: Referral ID Status Reason Start Date Expiration Date Visits Requested Visits Authorized [id number] Pending Review Perform Procedure 02/02/2024 02/01/2025 8 8 [facility] Work Phone: reason for visit Narrative* Procedure (Routine) - Authorized Specialty Diagnoses / Procedures Referred By Contac t Referred To Contact Reproductive Endocrinology and Infertility Diagnoses Encounter for assisted reproductive fertility cycle Procedures Egg Retrieval MO FOLLICLE PUNCTURE OOCYTE RETRIEVAL ANY METHOD CHG US GUIDANCE ASPIRATION OVA IMG S&I CHG OOCYTE ID FROM FOLLICULAR FLU CHG BX OOCYTE POLR BDY/AMBER BLST MICROTQ <= 5 AMBER CHG BX OOCYTE MICROTQ >5 AMBER CHG UNLISTED MOLECULAR PATHOLOGY PROCEDURE CHG CYTOGENETICS&MOLEC CYTOGENETICS INTERP&REP Beth Warren MD [address] [place] [address] Phone: tel: fax: Referral ID Status Reason Start Date Expiration Date V isits Requested Visits Authorized [id number] Authorized 01/27/2024 01/26/2025 1 1 [facility] Work Phone: reason for visit Narrative* Imaging (Routine) - Authorized Specialty Diagnoses / Procedures Referred By Contac t Referred To Contact Radiology Diagnoses Female infertility Procedures KELSY US Pelvis Limited Follicles - Follicle Studies Performed Donya Abernathy, FLAT SPRING ASSEMBLER-SYSTEMS ANALYSIS MANAGER [address] [facility], [place] [address], [address] [address] Phone: tel: fax: Referral ID Status Reason Start Date Expiration Date Visits Requested Visits Authorized [id number] Authorized Perform Procedure 4 03/01/2025 8 8 [facility] Work Phone: reason for visit Narrative* Procedure (Routine) - Authorized Specialty Diagnoses / Procedures Referred By Alejandro t Referred To Contact Reproductive Endocrinology and Infertility Diagnoses Encounter for assisted reproductive fertility cycle Procedures Egg Retrieval MO FOLLICLE PUNCTURE OOCYTE RETRIEVAL ANY METHOD CHG US GUIDANCE ASPIRATION OVA IMG S&I CHG OOCYTE ID FROM FOLLICULAR FLU CHG BX OOCYTE POLR BDY/AMBER BLST MICROTQ <= 5 AMBER CHG BX OOCYTE MICROTQ >5 AMBER CHG UNLISTED MOLECULAR PATHOLOGY PROCEDURE CHG CYTOGENETICS&MOLEC CYTOGENETICS INTERP&REP Donya Abernathy, FLAT SPRING ASSEMBLER-SYSTEMS ANALYSIS MANAGER [address] [facility], [place] [address] Phone: tel: fax: Referral ID Status Reason Start Date Expiration Date V isits Requested Visits Authorized [id number] Authorized 03/01/2024 03/01/2025 1 0 [facility] Work Phone: reason for visit Narrative* Imaging (Routine) - Authorized Specialty Diagnoses / Procedures [facility] Referred To Contact Radiology Diagnoses Female infertility Procedures KELSY US Endometrial Lining Check Donya Abernathy, FLAT SPRING ASSEMBLER-SYSTEMS ANALYSIS MANAGER [address] [facility], [place] [address] Phone: tel: fax: Referral ID Status Reason Start Date Expiration Date Visits Requested Visits Authorized [id number] Authorized Perform Procedure 4 02/23/2025 5 5 [facility] Work Phone: reason for visit Narrative* Procedure (Routine) - Authorized Specialty Diagnoses / Procedures [facility]erred By [facility] Referred To Contact Reproductive Endocrinology and Infertility Diagnoses Encounter for assisted reproductive fertility cycle Procedures Embryo Transfer MO EMBRYO TRANSFER INTRAUTERINE CHG ULTRASONIC GUIDANCE INTRAOPERATIVE CHG THAWING CRYOPRESERVED EMBRYO CHG ASSTD EMBRYO HATCHING MICROTQS ANY METH CHG PREPJ EMBRYO TR Juan Chavarria MD [address], [address] [place] [address] Phone: tel: fax: Referral ID Status Reason Start Date Expiration Date V isits Requested Visits Authorized [id number] Authorized 06/10/2024 06/10/2025 1 1 [facility] Work Phone: Reason for visit Narrative* Imaging (Routine) - Authorized Specialty Diagnoses / Procedures Referred By Alejandro t Referred To Contact Radiology Diagnoses ([facility]) Procedures US OB detail anatomy Layo Courtney, [address] [facility] [address], [place] [address] Phone: tel: fax: Referral ID Status Reason Start Date Expiration Date Visits Requested Visits Authorized [id number] Authorized Perform Procedure 08/15/2024 08/15/2025 1 1 [facility] Work Phone: Summary Purpose Family History [...] Procedures Polypectomy Juan Chavarria MD [address], [address] [place] [address] [address] [place] [address] Referral ID Status Reason Start Date Expiration Date V isits Requested Visits Authorized [id number] Authorized 01/25/2024 01/24/2025 1 1 Additional Source Comments INFORMATION SOURCE (unrecogn ized section and content) DATE CREATED AUTHOR 08/01/2022 [facility] DATE CREATED AUTHOR AUTHOR'S ORGANIZ ATION 04/04/2024 Zhao Larsen [facility] DATE CREATED AUTHOR AUTHOR'S ORGANIZ ATION 06/15/2024 [facility] DATE CREATED AUTHOR AUTHOR'S ORGANIZ ATION 07/02/2024 [facility] DATE CREATED AUTHOR AUTHOR'S ORGANIZ ATION 07/14/2024 [facility] DATE CREATED AUTHOR AUTHOR'S ORGANIZ ATION 10/11/2024 [facility] DATE CREATED AUTHOR AUTHOR'S ORGANIZ ATION 02/10/2025 [facility] EPIC Patient Care team informatio n (unrecognized section and content) Linen Tech Relationship Specialty Start Date End Date Allyssa Robles RN Registered Nurse Reproductive Endocrinology and Infertility 12/25/23 Linen Tech Relationship Specialty Start Date End Date Allyssa Robles RN Registered Nurse Reproductive Endocrinology and Infertility 12/25/23 Linen Tech Relationship Specialty Start Date End Date Allyssa Robles RN Registered Nurse Reproductive Endocrinology and Infertility 12/25/23 Linen Tech Relationship Specialty Start Date End Date Allyssa Robles RN Registered Nurse Reproductive Endocrinology and Infertility 12/25/23 Linen Tech Relationship Specialty Start Date End Date Allyssa Robles RN Registered Nurse Reproductive Endocrinology and Infertility 12/25/23 Linen Tech Relationship Specialty Start Date End Date Allyssa Robles RN Registered Nurse Reproductive Endocrinology and Infertility 12/25/23 Linen Tech Relationship Specialty Start Date End Date Allyssa Robles RN Registered Nurse Reproductive Endocrinology and Infertility 12/25/23 Linen Tech Relationship Specialty Start Date End Date Allyssa Robles RN Registered Nurse Reproductive Endocrinology and Infertility 12/25/23 Linen Tech Relationship Specialty Start Date End Date Allyssa Robles RN Registered Nurse Reproductive Endocrinology and Infertility 12/25/23 Linen Tech Relationship Specialty Start Date End Date Ginger Torres LPN Licensed Practical Nurse 12/10/23 Linen Tech Relationship Specialty Start Date End Date Allyssa Robles RN Registered Nurse Reproductive Endocrinology and Infertility 12/25/23 Linen Tech Relationship Specialty Start Date End Date Allyssa Robles RN Registered Nurse Reproductive Endocrinology and Infertility 12/25/23 Linen Tech Relationship Specialty Start Date End Date Allyssa Robles RN Registered Nurse Reproductive Endocrinology and Infertility 12/25/23 Linen Tech Relationship Specialty Start Date End Date Allyssa Robles, RN Registered Nurse Reproductive Endocrinology and Infertility 12/25/23 Linen Tech Relationship Specialty Start Date End Date Allyssa Robles RN Registered Nurse Reproductive Endocrinology and Infertility 12/25/23 Reason for Visit (unrecogniz ed section and content) Specialty Diagnoses / Procedures Referred By Alejandro hyatt Referred To Contact Diagnoses Endometrial polyp Procedures Polypectomy Juan Chavarria MD [address] [facility] Alexia Hay, [address] [place] [address] MYLES Hay [address] [place] [address] Referral ID Status Reason Start Date Expiration Date V isits Requested Visits Authorized [id number] Authorized 01/25/2024 01/24/2025 1 1 Specialty Diagnoses / Procedures Referred By Alejandro hyatt Referred To Contact Radiology Diagnoses Female infertility Procedures KELSY US Pelvis Limited Follicles - Follicle Studies Performed America Chavez, FLAT SPRING ASSEMBLER-SYSTEMS ANALYSIS MANAGER [address] [place] [address] Referral ID Status Reason Start Date Expiration Date Visits Requested Visits Authorized [id number] Authorized Perform Procedure 02/02/2024 02/01/2025 8 8 [...] BE BASED ON THE PRIMARY CLINICAL RECORDS. [facility] [employer] provides no warranty or guarantee of the accuracy or completeness of information in this document.
== END 2025-02-10 16:30 | disposition home or self-care (01) ==
LOC: FBCO 15:58 → FBC 16:01
PROVIDERS: Visit Provider Obstetrics & Gynecology
DX: O26.893 Other specified pregnancy related conditions, third trimester (principal)
CPT/HCPCS: 59025

== ENCOUNTER 2025-02-14 15:42 | Outpatient (OUT) | payer OTHER, SELFPAY ==
--- OUTSIDE RECORDS SUMMARY | 2025-01-31 13:50 | XMS_ITS | Encounter Summary ---
Author Organization [facility] Address [address] [place] [address] Care Team Providers Care Sweeper Cleaner Industrial Name Role Phone Unavailable Primary Care Provider Unavailabl e Encounter Details Date Type Department Care Team (Latest Contact Info) Description 01/31/2025 1:50 PM EDT Routine [facility] [address] [place] [address] Maria M Guerrero, HEAT TREAT SUPERVISOR [address] [place] [place] [address] Third trimester ([facility]); 35 weeks gestation of ([facility]); Encounter for in vitro fertilization Social [...] nursing note reviewed. Exam conducted with a map drafter present. Vitals: Estimated body mass index is 40.57 kg/m?? as calculated from the following: Height as of 09/17/23: 5' 3 . Weight as of this encounter: 229 lb. BP: 122/76 No LMP recorded. Patient is . ASSESSMENT & PLAN ICD-10-CM 1. Third trimester ([facility]) Z34.93 CULTURE, GROUP B STREP WITH SUSCEPTIBLITY CULTURE, GROUP B STREP WITH SUSCEPTIBLITY CANCELED: CULTURE, GROUP B STREP WITH SUSCEPTIBLITY 2. 35 weeks gestation of ([facility]) Z3A.35 POCT urinalysis dipstick manually resulted [...] documented in this encounter Plan of Treatment Scheduled Orders Name Type Priority Associated Diagnoses Orde r Schedule US OB follow up transabdominal approach Imaging Routine Encounter for in vitro fertilization Expected: 01/31/2025, Expires: 06/02/2025 documented as of this encounter Procedures Procedure Name Priority Date/Time Associated Diagnosis Comments CULTURE, GROUP B STREP WITH SUSCEPTIBLITY Routine 02/08/2025 8:35 AM EDT Third trimester ([facility]) POCT URINALYSIS DIPSTICK Routine 01/31/2025 2:25 PM EDT 35 weeks gestation of ([facility]) documented in this encounter Results * CULTURE, GROUP B STREP WITH SUSCEPTIBLITY (02/08/2025 8:35 AM EDT) Maria M Guerrero NP LAB BLOOD ORDERABLES Final Re sult EXTERNAL LAB * (ABNORMAL) POCT urinalysis dipstick manually resulted [...] Urine 01/31/2025 2:25 PM EDT Maria M Guerrero NP POINT OF CARE TEST ENTER/EDIT ORDERABLES Final Result documented in this encounter Visit Diagnoses Diagnosis Third trimester ([facility]) state, incidental 35 weeks gestation of ([facility]) Encounter for in vitro fertilization Encounter for assisted reproductive fertility procedure cycle documented in this encounter
--- OUTSIDE RECORDS SUMMARY | 2025-02-07 13:40 | XMS_ITS | Encounter Summary ---
Author Organization [facility] Address [address] [place] [address] Care Team Providers Care Department Store Door Greeter Name Role Phone Unavailable Primary Care Provider Unavailabl e Reason for Visit * Reason Comments Routine Visit Encounter Details Date Type Department Care Team (Late st Contact Info) Description 02/07/2025 1:40 PM EDT Routine [facility] [address] [place] [address] Maria M Guerrero NP [address] [facility] [place] [address] Third trimester ([facility] 36 weeks gestation of ([facility]) 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 Tobacco Use Types Packs/Day Years [...] Notes * Maria M Guerrero NP - 02/07/2025 1:40 PM EDT Reason for Appointment: Patient ID: [...] nursing note reviewed. Exam conducted with a break off worker present. Vitals: Estimated body mass index is 41.88 kg/m?? as calculated from the following: Height as of 09/17/22: 5' 3 . Weight as of this encounter: 236 lb 6.4 oz. BP: 128/82 No LMP recorded. Patient is . ASSESSMENT & PLAN ICD-10-CM 1. Third trimester ([facility]) Z34.93 2. 36 weeks gestation of ([facility]) Z3A.36 POCT urinalysis dipstick manually resulted Return OB: Patient presents today for a routine obstetrics appointment. Patient is currently 36w6d . Patient states she is doing well but has complaints of being tired due to current . Patient has verbalizes frequent movement. labor precautions was discussed/given and patient was instructed to perform kick counts three times a day. Orders Placed This Encounter Procedures POCT urinalysis dipstick manually resulted Follow Up: Patient is to return to office in 1 week for routine OB appointment. Documented by Maria M Guerrero NP on behalf of: Maria M Guerrero NP documented in this encounter Plan of Treatment Not on file documented as of this encounter Procedures Procedure Name Priority Date/Time Associated Diagnosis Comments POCT URINALYSIS DIPSTICK Routine 02/07/2025 1:52 PM EDT 36 weeks gestation of ([facility]) documented in this encounter Results * (ABNORMAL) [...] - 9 Protein, UA Trace Negative - 1999(20) ++++ mg/dL Urobilinogen, UA 2.0 0.2 - 12 mg/dL Leukocytes, UA 3+ Negative - 500+++ Onel/mcL Nitrite, UA Negative Negative - Positive Urine 02/07/2025 1:52 PM EDT Maria M Guerrero NP POINT OF CARE TEST ENTER/EDIT ORDERABLES Final Result documented in this encounter Visit Diagnoses Diagnosis Third trimester ([facility]) state, incidental 36 weeks gestation of ([facility]) documented in this encounter
--- NOTE | 2025-02-14 | US_ITS ---
[place] [address] Patient Name: OLENA ROMERO MRN: [id number] date: 1995 Sex: F Assigned Patient Location: [facility] Current Patient Location: Accession/Order Number: [id number] Exam Date: 02/14/2025 16:49 Report Date: 02/14/2025 21:54 At the request of: RULA SMITH DO Procedure: US OB BPP w non-stress US OB BPP w non-stress 02/14/2025 5:14 PM SIGNS AND SYMPTOMS: ^PREGNACY RESULTING FROM INVITRO O09.813 PROTOCOL: Transabdominal sonographic imaging of the gravid uterus COMPARISON: None FINDINGS: Estimated gestational age: 37 weeks and 6 days heart rate: 141 bpm Amniotic fluid index: 12.10 cm. The deeper surgical pocket measures 4.56 cm. Biophysical profile: breathing movements: 2/2 Gross body movements: 2/2 tone: 2/2 Amniotic fluid volume: 2/2 US/US OB BPP w non-stress IMPRESSION: Biophysical profile score: 8/8 Impression dictated by: Damian Winters M.D. 02/14/2025 9:54 PM Dictation Location: [employer] Electronically authenticated by: [id number] Y Date: 02/14/2025 21:54
--- OUTSIDE RECORDS SUMMARY | 2025-02-14 14:30 | XMS_ITS | Encounter Summary ---
Author Organization [facility] Address [address] [place] [address] Care Team Providers Care Shipping Support Clerk Name Role Phone Unavailable Primary Care Provider Unavailabl e Reason for Visit * Reason Comments Routine Visit Encounter Details Date Type Department Care Team (Late st Contact Info) Description 02/14/2025 2:30 PM EDT Routine [facility] [address] [phone] Layo Courtney DO [address] [place], [place] [id number] Third trimester ([facility]); 37 weeks gestation of ([facility]) Social History Tobacco Use Types Packs/Day Years [...] Reading Time Taken Comments Blood Pressure 110/82 02/14/2025 2:44 PM EDT Pulse - - Temperature - - Respiratory Rate - - Oxygen Saturation - - Inhaled Oxygen Concentration - - Weight 108 kg (237 lb 8 oz) 02/14/2025 2:44 PM E DT Height - - Body Mass Index 42.07 09/17/2022 12:00 PM EDT documented in this encounter Plan of Treatment Not on file documented as of this encounter Procedures Procedure Name Priority Date/Time Associated Diagnosis Comments POCT URINALYSIS DIPSTICK Routine 02/14/2025 2:52 PM EDT Third trimester ([facility]) documented in this encounter Results * (ABNORMAL) POCT urinalysis dipstick manually resulted (02/14/2025 2:52 PM EDT) Color, UA Yellow Clarity, UA [...] Leukocytes, UA Positive Negative - 500+++ Onel/mcL Comment:2+ Nitrite, UA Negative Negative - Positive Urine 02/14/2025 2:52 PM EDT Layo Courtney DO POINT OF CARE TEST ENTER/EDIT OR DERABLES Final Result documented in this encounter Visit Diagnoses Diagnosis Third trimester ([facility]) state, incidental 37 weeks gestation of ([facility]) documented in this encounter
--- OUTSIDE RECORDS SUMMARY | 2025-02-14 15:44 | XMS_ITS | Encounter Summary ---
Author Organization [facility] Address [address] [place] [address] Care Team Providers Care Extruder Operator Horizontal Name Role Phone Unavailable Primary Care Provider Unavailabl e Encounter Details Date Type Department Care Team (Late st Contact Info) Description 02/09/2025 Abstract [facility] [address] [place] [address] Layo Courtney DO [address] [place] [address] Social History Tobacco Use Types Packs/Day Years [...]
--- OUTSIDE RECORDS SUMMARY | 2025-02-14 15:44 | XMS_ITS | Encounter Summary ---
Author Organization [facility] Address [address] [place] [address] Care Team Providers Care Parking Analyst Name Role Phone Unavailable Primary Care Provider Unavailabl e Encounter Details Date Type Department Care Team (Late st Contact Info) Description 02/07/2025 Clinisync Result Encounter [facility] External Department Unsolicited Rula Courtney, DO [address] [place] [address] Social History Tobacco Use Types [...] Diagnosis Comments US OB BPP W NON-STRESS 02/07/2025 4:05 PM EDT documented in this encounter Results * US OB BPP W NON-STRESS (02/07/2025 4:05 PM EDT) Anatomical Region Laterality Modality Other 02/07/2025 4:05 PM EDT Narrative 02/07/2025 4:07 PM EDT [facility] [address] [place] [address] Ultrasound Report Signed Patient: OLENA GARCIA MR#: [id number] : 1995 Acct:[id number] Age/Sex: 29 / F ADM Date: 02/07/25 Loc: [facility] 254-[address]: Rula Courtney D.O. Ordering Physician: Rula Courtney D.O. Date of Service: 02/07/25 Procedure(s): US OB BPP w non-stress Accession Number(s): [id number] cc: Rula Courtney D.O.; Physician,Non-Staff MDenisa [place] [phone] Patient Name: OLENA GARCIA MRN: [id number] date: 1995 Sex: F Assigned Patient Location: [facility] Current Patient Location: [facility] Accession/Order Number: [id number] Exam Date: 02/07/2025 14:45 Report Date: 02/07/2025 16:05 At the request of: RULA COURTNEY DO Procedure: US OB BPP w non-stress Ultrasound biophysical profile INDICATION: IVF FINDINGS: [place] [employer] reports a BPP of 8 out of 8 LONNY is normal at 10.6 cm. heart rate 147. Heterogeneous appearance of the placenta hypoechoic focus measuring 2.4 x 1.9 x 1.6 cm in size. US/US OB BPP w non-stress IMPRESSION: BPP 8 out of 8. Impression dictated by: Bernabe Romero M.D. 02/07/2025 4:05 PM Dictation Location: [place] [address] Electronically authenticated by: [id number] Y Date: 02/07/2025 16:05 Dictated By: Bernabe Romero M.D. Signed By: 02/07/25 1607 DD/ 04 TD/TT: Stave Machine Tender: Procedure Note Radiology, Radiologist, - 02/07/2025 [place] [address] Ultrasound Report Signed Patient: OLENA GARCIA RMR#: [id number] : 1995Acct:[id number] Age/Sex: 29 / FADM Date: 02/07/25 Loc: [facility] 254-[address]: Rula Courtney D.O. Ordering Physician: Rula Courtney D.O. Date of Service: 02/07/25 Procedure(s): US OB BPP w non-stress Accession Number(s): [id number] cc: Rula Courtney D.O.; Physician,Non-Staff MDenisa [place] [address] Patient Name: OLENA GARCIA MRN: [facility] [employer] [employer]:[id number] date: 1995 Sex: F Assigned Patient Location: [facility] Current Patient Location: [facility] Accession/Order Number: [id number] Exam Date: 02/07/2025 14:45 Report Date: 02/07/2025 16:05 At the request of: RULA COURTNEY DO Procedure: US OB BPP w non-stress Ultrasound biophysical profile INDICATION: IVF FINDINGS: [place] [employer] reports a BPP of 8 out of 8 LONNY is normal at10.6 cm. heart rate 147. Heterogeneous appearance of the placenta hypoechoic focus measuring 2.4 x 1.9 x 1.6 cm in size. US/US OB BPP w non-stress IMPRESSION: BPP 8 out of 8. Impression dictated by: Bernabe Romero M.D. 02/07/2025 4:05 PM Dictation Location: [place] [address] Electronically authenticated by: [id number] Y Date: 6:05 Dictated By: Bernabe Romero M.D. Signed By:02/07/25 1607 DD/ 1605 TD/TT: Stave Machine Tender: Rula Courtney DO [facility] Final Result documented in this encounter Visit Diagnoses Not on filedocumented in this encounter
--- OUTSIDE RECORDS SUMMARY | 2025-02-14 15:44 | XMS_ITS | Encounter Summary ---
Author Organization [facility] Address [address] [place] [address] Care Team Providers Care Security Tester Name Role Phone Unavailable Primary Care Provider Unavailabl e Encounter Details Date Type Department Care Team (Late st Contact Info) Description 02/14/2025 Bamboo flowsheet [facility] [address] [place] [address] Layo Courtney DO [address] [place], [facility] Social History Tobacco Use Types Packs/Day Years [...]
--- OUTSIDE RECORDS SUMMARY | 2025-02-14 15:44 | XMS_ITS | Encounter Summary ---
Author Organization [facility] Address [address] [place] [address] Care Team Providers Care Event Sales Manager Name Role Phone Unavailable Primary Care Provider Unavailabl e Encounter Details Date Type Department Care Team (Late st Contact Info) Description 02/07/2025 Bamboo flowsheet [facility] [address] [place] [address] Maria M Guerrero, LIME PLANT OPERATOR [address] [place] [address] Social History Tobacco Use Types Packs/Day [...]
--- OUTSIDE RECORDS SUMMARY | 2025-02-14 15:44 | XMS_ITS | Encounter Summary ---
Author Organization [facility] Address [address] [place] [address] Care Team Providers Care Lacquer Coater Name Role Phone Unavailable Primary Care Provider Unavailabl e Encounter Details Date Type Department Care Team (Late st Contact Info) Description 02/01/2025 Clinisync Result Encounter [facility] External Department Unsolicited Rula Courtney, DO [address] [place] [address] Social History Tobacco Use Types [...] EDT Narrative 02/01/2025 9:24 AM EDT [facility] [address] [place] [address] Ultrasound Report Signed Patient: OLENA GARCIA MR#: [id number] : 1995 Acct:[id number] Age/Sex: 29 / F ADM Date: 01/31/25 Loc: US Attending Dr: Rula Courtney D.O. Ordering Physician: Rula Courtney D.O. Date of Service: 01/31/25 Procedure(s): US OB BPP w non-stress Accession Number(s): [id number] cc: Rula Courtney D.O.; Physician,Non-Staff M.DBetito [place] [address] Patient Name: OLENA GARCIA MRN: [id number] date: 1995 Sex: F Assigned Patient Location: US Current Patient Location: LAB Accession/Order Number: [id number] Exam Date: 01/31/2025 15:22 Report Date: 02/01/2025 [...] [place] M.D. 02/01/2025 9:21 AM Dictation Location: [place] [address] Electronically authenticated by: [id number] Y Date: 02/01/2025 09:21 Dictated By: Mariela [place] M.D. Signed By: 02/01/25923 DD/ 0 TD/TT: Concert Promoter: Procedure Note Radiology, Radiologist, - 02/01/2025 [place] [address] Ultrasound Report Signed Patient: OLENA GARCIA RMR#: [id number] : 1995Acct:[id number] Age/Sex: 29 / FADM Date: 01/31/25 Loc: US Attending Dr: Rula Courtney D.O. Ordering Physician: Rula Courtney D.O. Date of Service: 01/31/25 Procedure(s): US OB BPP w non-stress Accession Number(s): [id number] cc: Rula Courtney D.O.; Physician,Non-Staff Steven [place] [id number] Patient Name: OLENA GARCIA MRN: [id number] date: 1995 Sex: F Assigned Patient Location: US Current Patient Location: LAB Accession/Order Number: [id number] Exam Date: 01/31/2025 15:22 Report Date: 02/01/2025 [...] [place] M.D. 02/01/2025 9:21 AM Dictation Location: [place] [address] Electronically authenticated by: [id number] Y Date: 9:21 Dictated By: Mariela [place] M.D. Signed By:02/01/25923 DD/ 0 TD/TT: Concert Promoter: us Rula Sherwin DO [facility] Final Result documented in this encounter Visit Diagnoses Not on filedocumented in this encounter
--- OUTSIDE RECORDS SUMMARY | 2025-02-14 15:44 | XMS_ITS | Clinical Summary ---
Author Organization [facility] Address [address] [place] [address] Care Team Providers Care Door Cutter Name Role Phone Unavailable Primary Care [...] Encounters Date Type Department Care Team Description 02/14/2025 2:30 [place] [address] Rula Courtney, Third trimester ([facility]); 37 weeks gestation of ([facility]) 02/14/2025 [place] [address] Rula Courtney DO 02/09/2025 [place] [address] Rula Courtney DO 02/07/2025 1:40 [place] [address] Maria M Guerrero, MARGARITO Third trimester ([facility]); 36 weeks gestation of ([facility]) 02/07/2025 Clinisync Result Encounter NOMS External Department Unsolicited Sherwin, Rula, DO 02/07/2025 [place] [phone] Maria M Guerrero, MARGARITO 02/01/2025 Clinisync Result Encounter NOMS External Department Unsolicited Sherwin, Urla, DO 02/01/2025 Clinisync Result Encounter NOMS External Department Unsolicited Sherwin, Rula, DO 01/31/2025 1:50 PM [place] [phone] Maria M Guerrero, MARGARITO Third trimester ([facility]); 35 weeks gestation of ([facility]); Encounter for in vitro fertilization 01/31/2025 Bamboo flowsheet [facility] [address] [facility] [place] [phone] Maria M Guerrero, MARGARITO 01/25/2025 Clinisync Result Encounter NOMS External Department Unsolicited Sherwin, Rula, DO 01/24/2025 Clinisync Result Encounter NOMS External Department Unsolicited Sherwin, Rula, DO 01/18/2025 Clinisync Result Encounter NOMS External Department Unsolicited Sherwin, Rula, DO 01/16/2025 2:50 [place] [phone] SherwinRula diaz, DO 33 weeks gestation of ([facility]); Third trimester ([facility]); Group B streptococcal infection; resulting from in vitro fertilization in first trimester ([facility]) 01/16/2025 Bamboo flowsheet [facility] [address] [place] [phone] Rula Courtney, DO 01/10/2025 Clinisync Result Encounter NOMS External Department Unsolicited SherwinLizziey, DO 01/03/2025 10:00 AM [place] [address] Rula Courtney, Third trimester ([facility]); 31 weeks gestation of ([facility]); resulting from in vitro fertilization in third trimester ([facility]) 01/03/2025 Bamboo flowsheet [facility] David [address] [place] [address] Rula Courtney, 12/21/2024 Telephone [facility] [address] [place] [address] Marilia Elder ID 12/19/2024 10:00 AM [place] [address] Rula Courtney, DO 29 weeks gestation of ([facility]); Third trimester ([facility]); Leukocytes in urine; Other microscopic hematuria 12/19/2024 9:30 AM EDT Ancillary Procedure [facility] [address] [place] [address] resulting from in vitro fertilization in second trimester ([facility]) 12/06/2024 8:30 AM [place] [address] Rula Courtney, 27 weeks gestation of ([facility]); Second trimester ([facility]); resulting from in vitro fertilization in second trimester ([facility]) 12/06/2024 Clinisync Result Encounter NOMS External Department Unsolicited Rula Courtney, DO 12/06/2024 Bamboo flowsheet [facility] [address] [place] [address] Rula Courtney, DO 11/28/2024 Telephone [facility] David TIPTONGYIrene [address] [place] [address] Rula Courtney, 11/26/2024 Clinisync Result Encounter NOMS External Department Unsolicited Rula Courtney, 11/18/2024 Abstract [facility] [address] [place] [phone] Rula Courtney, DO from Last 3 Months Family History [...] oz) 02/14/2025 2:44 PM E DT Height 160 cm (5' 3 ) 09/17/2022 12:00 PM EDT Body Mass Index 42.07 09/17/2022 12:00 PM EDT Plan of Treatment Not on file Procedures Procedure Name Priority Date/Time Associated Diagnosis Comments POCT URINALYSIS DIPSTICK Routine 02/14/2025 2:52 PM EDT Third trimester ([facility]) CULTURE, GROUP B STREP WITH SUSCEPTIBLITY Routine 02/08/2025 8:35 AM EDT Third trimester ([facility]) US OB BPP W NON-STRESS 02/07/2025 4:05 PM EDT POCT URINALYSIS DIPSTICK Routine 02/07/2025 1:52 PM EDT 36 weeks gestation of ([facility]) US OB BPP W NON-STRESS 02/01/2025 9:21 AM EDT US OB GROWTH 02/01/2025 9:21 AM EDT POCT URINALYSIS DIPSTICK Routine 01/31/2025 2:25 PM EDT 35 weeks gestation of ([facility]) US OB BPP W NON-STRESS 01/25/2025 6:24 PM EDT US OB BPP W NON-STRESS 01/24/2025 7:55 PM EDT US OB BPP W NON-STRESS 01/18/2025 9:02 AM EDT POCT URINALYSIS DIPSTICK Routine 01/16/2025 3:20 PM EDT 33 weeks gestation of ([facility]) Third trimester ([facility]) US OB BPP W NON-STRESS 01/10/2025 9:07 PM EDT POCT URINALYSIS DIPSTICK Routine 01/03/2025 10:22 AM EDT Third trimester ([facility]) 31 weeks gestation of ([facility]) URINARY TRACT INFECTION (HTRX) Routine 12/19/2024 11:28 AM EDT POCT URINALYSIS DIPSTICK Routine 12/19/2024 10:11 AM EDT 29 weeks gestation of ([facility]) Third trimester ([facility]) US OB FOLLOW UP TRANSABDOMINAL APPROACH Routine 12/19/2024 9:56 AM EDT resulting from in vitro fertilization in second trimester ([facility]) GLUCOSE TOLERANCE 3 HOUR Routine 12/06/2024 11:26 AM EDT POCT URINALYSIS DIPSTICK Routine 12/06/2024 8:40 AM EDT 27 weeks gestation of ([facility]) Second trimester ([facility]) GLUCOSE 1 HOUR Routine 11/26/2024 10:03 AM EDT ALL CBC WITH AUTO DIFF Routine 10:03 AM EDT from Last 3 Months Results * (ABNORMAL) POCT urinalysis dipstick manually resulted (02/14/2025 2:52 PM EDT) Only the most recent of7 [...] - Positive Urine 02/14/2025 2:52 PM EDT Rula Courtney DO POINT OF CARE TEST ENTER/EDIT OR DERABLES Final Result * CULTURE, GROUP B STREP WITH SUSCEPTIBLITY (02/08/2025 8:35 AM EDT) Maria M Guerrero NP LAB BLOOD ORDERABLES Final Re sult EXTERNAL LAB * US OB BPP W NON-STRESS (02/07/2025 4:05 PM EDT) Only the most recent of6 resultswithin the time period is included. Anatomical Region Laterality Modality Other 02/07/2025 4:05 PM EDT Narrative 02/07/2025 4:07 PM EDT [place] [id number] Ultrasound Report Signed Patient: OLENA GARCIA MR#: [id number] : 1995 Acct:[id number] Age/Sex: 29 / F ADM Date: 02/07/25 Loc: [facility] 254-[address]: Rula Courtney D.O. Ordering Physician: Rula Courtney D.O. Date of Service: 02/07/25 Procedure(s): US OB BPP w non-stress Accession Number(s): [id number] cc: Rula Courtney D.O.; Physician,Non-Staff Steven [place] [phone] Patient Name: OLENA GARCIA MRN: [facility]:[id number] date: 1995 Sex: F Assigned Patient Location: [facility] Current Patient Location: [facility] Accession/Order Number: [id number] Exam Date: 02/07/2025 14:45 Report Date: 02/07/2025 16:05 At the request of: RULA COURTNEY DO Procedure: US OB BPP w non-stress Ultrasound biophysical profile INDICATION: IVF FINDINGS: The drop worker reports a BPP of 8 out of 8 LONNY is normal at 10.6 cm. heart rate 147. Heterogeneous appearance of the placenta hypoechoic focus measuring 2.4 x 1.9 x 1.6 cm in size. US/US OB BPP w non-stress IMPRESSION: BPP 8 out of 8. Impression dictated by: Bernabe Romero M.D. 02/07/2025 4:05 PM Dictation Location: [place] [address] Electronically authenticated by: [id number] Y Date: 02/07/2025 16:05 Dictated By: Bernabe Romero M.D. Signed By: 02/07/251606 DD/ 04 TD/TT: Insole Buffer: Procedure Note Radiology, Radiologist, - 02/07/2025 [place] [address] Ultrasound Report Signed Patient: OLENA GARCIA RMR#: [id number] : 1995Acct:[id number] Age/Sex: 29 / FADM Date: 02/07/25 Loc: [facility] 254-[address]: Rula Courtney D.O. Ordering Physician: Rula Courtney D.O. Date of Service: 02/07/25 Procedure(s): US OB BPP w non-stress Accession Number(s): [id number] cc: Rula Courtney D.O.; Physician,Non-Staff Steven The [place] [phone] Patient Name: OLENA GARCIA MRN: [facility]:[id number] date: 1995 Sex: F Assigned Patient Location: [facility] Current Patient Location: [facility] Accession/Order Number: [id number] Exam Date: 02/07/2025 14:45 Report Date: 02/07/2025 16:05 At the request of: RULA COURTNEY DO Procedure: US OB BPP w non-stress Ultrasound biophysical profile INDICATION: IVF FINDINGS: The drop worker reports a BPP of 8 out of 8 LONNY is normal at10.6 cm. heart rate 147. Heterogeneous appearance of the placenta hypoechoic focus measuring 2.4 x 1.9 x 1.6 cm in size. US/US OB BPP w non-stress IMPRESSION: BPP 8 out of 8. Impression dictated by: Bernabe Romero M.D. 02/07/2025 4:05 PM Dictation Location: [place] [address] Electronically authenticated by: [id number] Y Date: 6:05 Dictated By: Bernabe Romero M.D. Signed By:02/07/251606 DD/ 04 TD/TT: Insole Buffer: Rula Courtney DO [facility] Final Result * US OB GROWTH (02/01/2025 9:21 AM EDT) Anatomical Region Laterality Modality Other 02/01/2025 9:21 AM EDT Narrative 02/01/2025 9:24 [place] [address] Ultrasound Report Signed Patient: OLENA GARCIA MR#: [id number] : 1995 Acct:[id number] Age/Sex: 29 / F ADM Date: 01/31/25 Loc: US Attending Dr: Rula Courtney D.O. Ordering Physician: Rula Courtney D.O. Date of Service: 01/31/25 Procedure(s): US OB growth Accession Number(s): [id number] cc: Rula Courtney D.O.; Physician,Non-Staff [place] [phone] Patient Name: OLENA GARCIA MRN: [id number] date: 1995 Sex: F Assigned Patient Location: [facility] Current Patient Location: LAB Accession/Order Number: [id number] Exam Date: 01/31/2025 15:22 Report Date: 02/01/2025 [...] [place] M.D. 02/01/2025 9:21 AM Dictation Location: [place] [address] Electronically authenticated by: [id number] Y Date: 02/01/2025 09:21 Dictated By: Mariela [place] M.D. Signed By: 02/01/25923 DD/ 0 TD/TT: Insole Buffer: Procedure Note Radiology, Radiologist, MD - 02/01/2025 [place] [address] Ultrasound Report Signed Patient: OLENA GARCIA RMR#: [id number] : 1995Acct:[id number] Age/Sex: 29 / FADM Date: 01/31/25 Loc: US Attending Dr: Rula Courtney D.O. Ordering Physician: Rula Courtney D.O. Date of Service: 01/31/25 Procedure(s): US OB growth Accession Number(s): [id number] cc: Rula Courtney D.O.; Physician,Non-Staff Steven [place] [address] Patient Name: OLENA GARCIA MRN: [facility]:[id number] date: 1995 Sex: F Assigned Patient Location: [facility] Current Patient Location: LAB Accession/Order Number: [id number] Exam Date: 01/31/2025 15:22 Report Date: 02/01/2025 [...] [place] M.D. 02/01/2025 9:21 AM Dictation Location: [place] [address] Electronically authenticated by: [id number] Y Date: 9:21 Dictated By: Mariela [place] M.D. Signed By:02/01/25923 DD/ 0 TD/TT: Insole Buffer: us Rula Courtney DO [facility] Final Result * (ABNORMAL) URINARY TRACT INFECTION (HTRX) (12/19/2024 11:28 AM EDT) [facility] ACINETOBACTER BAUMANII 0 19.961 - 24.689 ppm 12/20/2024 7:51 AM EDT [facility] ACINETOBACTER BAUMANII Not Detected 19.961 - 24.689 ppm 12/20/2024 7:51 AM EDT [facility] CITROBACTER FREUNDII 0 23.000 - 32.015 ppm 12/20/2024 7:51 AM EDT [facility] CITROBACTER FREUNDII Not Detected 23.000 - 32.015 ppm 12/20/2024 7:51 AM EDT [facility] ENTEROBACTER AEROGENES, CLOACAE 0 23.000 - 32.290 ppm 12/20/2024 7:51 AM EDT [facility] ENTEROBACTER AEROGENES, CLOACAE Not Detected 23.000 - 32.290 ppm 12/20/2024 7:51 AM EDT [facility] ENTEROCOCCUS FAECALIS, FAECIUM 0 26.000 - 33.043 ppm 12/20/2024 7:51 AM EDT [facility] ENTEROCOCCUS FAECALIS, FAECIUM Not Detected 26.000 - 33.043 ppm 12/20/2024 7:51 AM EDT [facility] ESCHERICHIA COLI 0 23.000 - 28.500 ppm 12/20/2024 7:51 AM EDT [facility] ESCHERICHIA COLI Not Detected 23.000 - 28.500 ppm 12/20/2024 7:51 AM EDT [facility] KLEBSIELLA PNEUMONIAE, OXYTOCA 0 23.000 - 31.865 ppm 12/20/2024 7:51 AM EDT [facility] KLEBSIELLA PNEUMONIAE, OXYTOCA Not Detected 23.000 - 31.865 ppm 12/20/2024 7:51 AM EDT [facility] MORGANELLA MORGANII 0 19.961 - 24.689 ppm 12/20/2024 7:51 AM EDT [facility] MORGANELLA MORGANII Not Detected 19.961 - 24.689 ppm 12/20/2024 7:51 AM EDT [facility] PROTEUS MIRABILIS, VULGARIS 0 23.000 - 28.500 ppm 12/20/2024 7:51 AM EDT [facility] PROTEUS MIRABILIS, VULGARIS Not Detected 23.000 - 28.500 ppm 12/20/2024 7:51 AM EDT [facility] PSEUDOMONAS AERUGINOSA 0 23.000 - 31.801 ppm 12/20/2024 7:51 AM EDT [facility] PSEUDOMONAS AERUGINOSA Not Detected 23.000 - 31.801 ppm 12/20/2024 7:51 AM EDT [facility] STAPHYLOCOCCUS AUREUS 0 26.000 - 31.595 ppm 12/20/2024 7:51 AM EDT [facility] STAPHYLOCOCCUS AUREUS Not Detected 26.000 - 31.595 ppm 12/20/2024 7:51 AM EDT [facility] STREPTOCOCCUS AGALACTIAE (GROUP B STREP) 30.017(A) 26.000 - 32.435 ppm 12/20/2024 7:51 AM EDT [facility] STREPTOCOCCUS AGALACTIAE (GROUP B STREP) Detected(A) 26.000 - 32.435 ppm 12/20/2024 7:51 AM EDT [facility] PRESTON ALBICANS, PARAPSILOSIS, TROPICALIS 0 23.000 - 30.347 ppm 12/20/2024 7:51 AM EDT [facility] PRESTON ALBICANS, PARAPSILOSIS, TROPICALIS Not Detected 23.000 - 30.347 ppm 12/20/2024 7:51 AM EDT [facility] PRESTON GLABRATA 0 23.000 - 31.618 ppm 12/20/2024 7:51 AM EDT [facility] PRESTON GLABRATA Not Detected 23.000 - 31.618 ppm 12/20/2024 7:51 AM EDT [facility] PRESTON KRUSEI 0 23.000 - 30.873 ppm 12/20/2024 7:51 AM EDT [facility] PRESTON KRUSEI Not Detected 23.000 - 30.873 ppm 12/20/2024 7:51 AM EDT [facility] SERRATIA MARCESCENS 0 23.000 - 31.581 ppm 12/20/2024 7:51 AM EDT [facility] SERRATIA MARCESCENS Not Detected 23.000 - 31.581 ppm 12/20/2024 7:51 AM EDT [facility] STREPTOCOCCUS PYOGENES (GROUP A STREP) 0 19.961 - 24.689 ppm 12/20/2024 7:51 AM EDT [facility] STREPTOCOCCUS PYOGENES (GROUP A STREP) Not Detected 19.961 - 24.689 ppm 12/20/2024 7:51 AM EDT [facility] STAPHYLOCOCCUS EPIDERMIDIS, HAEMOLYTICUS, LUGDUNENSIS, SAPROPHYTICUS (URINA 0 19.961 - 24.689 ppm 12/20/2024 7:51 AM EDT [facility] STAPHYLOCOCCUS EPIDERMIDIS, HAEMOLYTICUS, LUGDUNENSIS, SAPROPHYTICUS (URINA Not Detected 19.961 - 24.689 ppm 12/20/2024 7:51 AM EDT [facility] STAPHYLOCOCCUS EPIDERMIDIS, HAEMOLYTICUS, LUGDUNENSIS, SAPROPHYTICUS (URINA 0 19.961 - 24.689 ppm 12/20/2024 7:51 AM EDT [facility] STAPHYLOCOCCUS EPIDERMIDIS, HAEMOLYTICUS, LUGDUNENSIS, SAPROPHYTICUS (URINA Not Detected 19.961 - 24.689 ppm 12/20/2024 7:51 AM EDT [facility] Urine 12/19/2024 11:2 8 AM EDT 12/20/2024 1:37 AM EDT us Rula Courtney DO LAB BLOOD ORDERABLES Final Resul t [facility] [address] [address] * US OB follow up transabdominal approach [...] II, MD, PHD at 22-Dec-2024 08:03:51 AM [facility] Procedure Note Toñito Friend MD - [...] TOÑITO FRIEND II, MD, PHD 08:03:51 AM [facility] us Rual Sherwin DO IMG OB US PROCEDURES Final [...] DO LAB BLOOD ORDERABLES Final Resul t [facility] * (ABNORMAL) ALL CBC WITH AUTO DIFF (11/26/2024 10:03 AM EDT) TB WBC 9.2 4.0 - 11.0 10 [...] Rula Courtney DO [facility] Final Result [facility] TB from Last 3 Months Insurance [employer]
--- OUTSIDE RECORDS SUMMARY | 2025-02-14 15:44 | XMS_ITS | Encounter Summary ---
Author Organization [facility] Address [address] [place] [address] Care Team Providers Care Supervisor Brake Repair Name Role Phone Unavailable Primary Care Provider Unavailabl e Encounter Details Date Type Department Care Team (Late st Contact Info) Description 01/31/2025 Bamboo flowsheet [facility] [address] [place] [address] Maria M Guerrero, MARGARITO [address] [place] [address] Social History Tobacco Use Types Packs/Day [...]
--- OUTSIDE RECORDS SUMMARY | 2025-02-14 15:44 | XMS_ITS | Encounter Summary ---
Author Organization [facility] Address [address] [place] [address] Care Team Providers Care Bottom Scrubber Name Role Phone Unavailable Primary Care Provider Unavailabl e Encounter Details Date Type Department Care Team (Late st Contact Info) Description 03/23/2023 Abstract [facility] [address] [place] [phone] Cassy Licea LPN [address] [place] [address] Social History Tobacco Use Types Packs/Day Years [...]
--- OUTSIDE RECORDS SUMMARY | 2025-02-14 15:45 | XMS_ITS | Encounter Summary ---
Author Organization [facility] Address [address] [place] [address] Care Team Providers Care Toeing Stockings Name Role Phone Unavailable Primary Care Provider Unavailabl e Encounter Details Date Type Department Care Team (Late st Contact Info) Description 01/22/2024 Abstract [facility] [address] [place] [address] Layo Courtney DO [address] [place] [address] Social History Tobacco Use Types Packs/Day Years [...]
--- OUTSIDE RECORDS SUMMARY | 2025-02-14 15:45 | XMS_ITS | Encounter Summary ---
Author Organization [facility] Address [address] [place] [address] Care Team Providers Care International Account Manager Name Role Phone Unavailable Primary Care Provider Unavailabl e Encounter Details Date Type Department Care Team (Late st Contact Info) Description 04/13/2023 Clinisync Result Encounter N[facility]S External Department Unsolicited Rula Courtney DO [address] [place] [address] [place] [address] Social History Tobacco Use Types [...] EST Narrative 04/13/2023 10:56 AM EST The [address] [address] Fluoroscopy Report Signed Patient: OLENA PEREYRA MR#: [id number] : 1995 Acct:[id number] Age/Sex: 27 / F ADM Date: 04/10/23 Loc: LAB Attending Dr: Rula Courtney D.O. Ordering Physician: Rula Courtney D.O. Date of Service: 04/10/23 Procedure(s): FL Hysterosal cath placement Accession Number(s): [id number] cc: Rula Courtney D.O.; Physician,Non-Staff Steven [place] [phone] Patient Name: OLENA PEREYRA MRN: [facility]:[id number] date: 1995 Sex: F Assigned Patient Location: LAB Current Patient Location: LAB Accession/Order Number: [id number] Exam Date: 04/10/2023 14:30 Report Date: 04/13/2023 10:54 At the request of: RULA COURTNEY Procedure: FL Hysterosal cath placement EXAM: FL Hysterosal cath placement HISTORY: Infertility TECHNIQUE: FINDINGS: Please see Operative Report. Electronically authenticated by: DARRYN LONDON Date: 04/13/2023 10:54 Dictated By: Darryn London Signed By: 04/13/23 1056 DD/ 1054 TD/TT: Child Care Specialist: Procedure Note Radiology, Radiologist, MD - 04/13/2023 [place] [address] Fluoroscopy Report Signed Patient: OLENA PEREYRA RMR#: [id number] : 1995Acct:[id number] Age/Sex: 27 / FADM Date: 04/10/23 Loc: LAB Attending Dr: Rula Courtney D.O. Ordering Physician: Rula Courtney D.O. Date of Service: 04/10/23 Procedure(s): FL Hysterosal cath placement Accession Number(s): [id number] cc: Rula Courtney D.O.; Physician,Non-Staff Steven [address] [address] Patient Name: OLENA PEREYRA MRN: [id number] date: 1995 Sex: F Assigned Patient Location: LAB Current Patient Location: LAB Accession/Order Number: [id number] Exam Date: 04/10/2023 14:30 Report Date: 04/13/2023 10:54 At the request of: RULA COURTNEY Procedure: FL Hysterosal cath placement EXAM: FL Hysterosal cath placement HISTORY: Infertility TECHNIQUE: FINDINGS: Please see Operative Report. Electronically authenticated by: DARRYN LONDON Date: 04/13/2023 10:54 Dictated By: LitaRadiologist Signed By:04/13/23 1056 DD/ 1054 TD/TT: Child Care Specialist: us Rula Courtney DO [facility] Final Result documented in this encounter Visit Diagnoses Not on filedocumented in this encounter
--- OUTSIDE RECORDS SUMMARY | 2025-02-14 15:45 | XMS_ITS | Encounter Summary ---
Author Organization [facility] Address [address] [place] [address] Care Team Providers Care Medical Concierge Name Role Phone Unavailable Primary Care Provider Unavailabl e Encounter Details Date Type Department Care Team (Late st Contact Info) Description 11/18/2024 Abstract [facility] [address] [place] [address] Layo Courtney DO [address] [facility] [place] [address] Social History Tobacco Use Types Packs/Day Years [...]
--- OUTSIDE RECORDS SUMMARY | 2025-02-14 15:45 | XMS_ITS | Encounter Summary ---
Author Organization [facility] Address [address] [place] [address] Phone Care Team Providers Care Branch Service Representative Name Role Phone Allyssa Robles RN Unavailable Unavailable Encounter Details Date Type Department Care Team (Late st Contact Info) Description 06/07/2024 Lab Requisition [facility] [address] [place] [phone] America Chavez, QUESTIONED DOCUMENTS EXAMINER-TRANSMISSION REPAIRER [address] [place] [address] Female infertility, unspecified Social History Tobacco Use [...] LAB IMMUNOASSAY METHOD 06/10/2024 8:33 PM EST [facility] Comment: Blood Venous blood specimen / Unknown 06/07/2024 8:45 AM EST 06/07/2024 10:22 AM EST Narrative [facility] - 06/10/2024 8:33 PM EST REF VALUES Male <0.2-0.8 Follicular Phase <0.2-1.5 Luteal Phase 7.4-15.4 Post Menopausal <0.2-0.2 1ST Trimester 12.0-84.0 2ND Trimester 10.2-58.8 3RD Trimester 46.5-160 Progesterone is performed using the Faith Zauber Access Immunoassay. Progesterone testing is performed using a different test methodology at [facility] than other [facility]. Direct result comparison should only be made within the same method. America Chavez APRNVidPayTRANSMISSION REPAIRER LAB BLOOD ORDERABLES Edite d Result - Final Performing Organization Address City/State/[facility] Co de Phone Number [facility] [address] [place] [phone] * Estradiol (06/07/2024 8:45 AM EST) Estradiol 2,870 pg/mL LAB IMMUNOASSAY METHOD 06/07/2024 10:43 AM EST [facility] Blood Venous blood specimen / Unknown 06/07/2024 8:45 AM EST 06/07/2024 10:22 AM EST Narrative [facility] - 06/07/2024 10:43 AM EST REF VALUES FOLLICULAR PHASE 20-144 MID CYCLE 64-357 LUTEAL PHASE 56-214 POSTMENOPAUSE < 32 PREPUBERTY < 20 FEMALE 10-18Y 8-110 MALE 10-18Y < 20 ADULT MALE < 40 America Chavez QUESTIONED DOCUMENTS EXAMINER-TRANSMISSION REPAIRER LAB BLOOD ORDERABLES Final Result [facility] [address] [place] [address] documented in this encounter Visit Diagnoses Diagnosis Female infertility, unspecified documented in this encounter Care Teams Branch Service Representative Relationship Specialty Start Date End Date Allyssa Robles, MISHEL Registered Nurse Reproductive Endocrinology and Infertility 12/25/23 documented as of this encounter
--- OUTSIDE RECORDS SUMMARY | 2025-02-14 15:45 | XMS_ITS | Encounter Summary ---
Author Organization [facility] Address [address] [place] [address] Phone Care Team Providers Care Sound System Installer Name Role Phone Allyssa Robles RN Unavailable Unavailable Encounter Details Date Type Department Care Team (Late st Contact Info) Description 06/30/2024 Lab Requisition [facility] [address] [place] [address] Leigh Ann Tuttle MD 1000 [facility] Alexia Darío [place], [address] [phone] Female infertility, unspecified Social History Tobacco Use [...] LAB IMMUNOASSAY METHOD 06/30/2024 10:41 AM EST [facility] Comment:Low-level positive H CG results can [...] AM EST 06/30/2024 10:01 AM EST Narrative [facility] - 06/30/2024 10:41 AM EST Total HCG measurement is performed using the Faith Kearsarge Access Immunoassay which detects intact HCG and free beta HCG subunit. This test is not indicated for use as a tumor marker. HCG testing is performed using a different test methodology at [facility] than other [facility]. Direct result comparison should only be made within the same method. us Leigh Ann Tuttle MD LAB BLOOD ORDERABLES Final Re sult [facility] [address] [place] [address] documented in this encounter Visit Diagnoses Diagnosis Female infertility, unspecified documented in this encounter Care Teams Sound System Installer Relationship Specialty Start Date End Date Allyssa Robles, MISHEL Registered Nurse Reproductive Endocrinology and Infertility 12/25/23 documented as of this encounter
--- OUTSIDE RECORDS SUMMARY | 2025-02-14 15:45 | XMS_ITS | Encounter Summary ---
Author Organization [facility] Address [address] [place] [address] Phone Care Team Providers Care Orthopedic Shoe Maker Name Role Phone Allyssa Robles RN Unavailable Unavailable Encounter Details Date Type Department Care Team (Late st Contact Info) Description 06/13/2024 Lab Requisition [facility] [address] [place] [address] Juan Chavarria MD 1000 [facility] Alexia Darío [place], [address] [phone] Female infertility, unspecified Social History Tobacco Use [...] 2:07 PM EST [facility] Blood Venous blood specimen / Unknown 06/13/2024 11:38 AM EST 06/13/2024 12:46 PM EST Narrative [facility] - 06/13/2024 2:07 PM EST REF VALUES Male <0.2-0.8 Follicular Phase <0.2-1.5 Luteal Phase 7.4-15.4 Post Menopausal <0.2-0.2 1ST Trimester 12.0-84.0 2ND Trimester 10.2-58.8 3RD Trimester 46.5-160 Progesterone is performed using the Faith Cristopher Access Immunoassay. Progesterone testing is performed using a different test methodology at [facility] than other [facility]. Direct result comparison should only be made within the same method. us Juan Chavarria MD LAB BLOOD ORDERABLES Final R esult [facility] [address] [place] [address] documented in this encounter Visit Diagnoses Diagnosis Female infertility, unspecified documented in this encounter Care Teams Orthopedic Shoe Maker Relationship Specialty Start Date End Date Allyssa Robles, RN Registered Nurse Reproductive Endocrinology and Infertility 12/25/23 documented as of this encounter
--- OUTSIDE RECORDS SUMMARY | 2025-02-14 15:45 | XMS_ITS | Encounter Summary ---
Author Organization [facility] Address [address] [place] [address] Phone Care Team Providers Care Rotor Assembler Name Role Phone Allyssa Robles RN Unavailable Unavailable Encounter Details Date Type Department Care Team (Late st Contact Info) Description 06/23/2024 Lab Requisition [facility] [address] [place] [phone] America Chavez, TRANSITION LEAD-CENTRAL SUPPLY WORKER [address] [place] [address] Female infertility, unspecified Social History Tobacco Use [...] Hold for add-ons. 06/23/2024 10:02 AM EST [facility] Comment:Auto resulted. Blood Venous blood specimen / Unknown 06/23/2024 7:53 AM EST 06/23/2024 8:35 AM EST America Chavez TRANSITION [facility] BLOOD ORDERABLES Final Result Performing Organization Address City/[facility]/ZIP Co de Phone Number [facility] [address] [place], [place] [phone] * Phleb Charge - Venipuncture (Lab Use Only) (06/23/2024 7:53 AM EST) Blood Venous blood specimen / Unknown 06/23/2024 7:53 AM EST 06/23/2024 8:35 AM EST America Chavez [facility] LAB BLOOD ORDERABLES Final Result Performing Organization Address City/[facility]/ZIP Co de Phone Number [facility] [address] [place] [address] * Estradiol (06/23/2024 7:53 AM EST) Estradiol 378 pg/mL LAB IMMUNOASSAY METHOD 06/23/2024 9:14 AM EST [facility] Blood Venous blood specimen / Unknown 06/23/2024 7:53 AM EST 06/23/2024 8:35 AM EST Narrative [facility] - 06/23/2024 9:14 AM EST REF VALUES FOLLICULAR PHASE 20-144 MID CYCLE 64-357 LUTEAL PHASE 56-214 POSTMENOPAUSE < 32 PREPUBERTY < 20 FEMALE 10-18Y 8-110 MALE 10-18Y < 20 ADULT MALE < 40 Estradiol measurement is performed using the Faith [place] Access Estradiol Immunoassay. Estradiol testing is performed using a different test methodology at [facility] than other [facility]. Direct result comparison should only be made within the same method. Americaroxy Chavez TRANSITION LEADTouchOfModernCENTRAL SUPPLY WORKER LAB BLOOD ORDERABLES Final Result Performing Organization Address City/[facility]/ZIP Co de Phone Number [facility] [address] [place] [address] * Progesterone (06/23/2024 7:53 AM EST) [facility] Progesterone 42.6 ng/mL LAB IMMUNOASSAY METHOD 06/23/2024 10:10 AM EST [facility] Blood Venous blood specimen / Unknown 06/23/2024 7:53 AM EST 06/23/2024 8:35 AM EST Narrative [facility] - 06/23/2024 10:10 AM EST REF VALUES Male <0.2-0.8 Follicular Phase <0.2-1.5 Luteal Phase 7.4-15.4 Post Menopausal <0.2-0.2 1ST Trimester 12.0-84.0 2ND Trimester 10.2-58.8 3RD Trimester 46.5-160 Progesterone is performed using the Faith [employer] Access Immunoassay. Progesterone testing is performed using a different test methodology at [facility] than other [facility]. Direct result comparison should only be made within the same method. Americaroxy Chavez TRANSITION LEADTouchOfModernCENTRAL SUPPLY WORKER LAB BLOOD ORDERABLES Final Result Performing Organization Address City/[facility]/ZIP Co de Phone Number [facility] [id number] [place] [address] documented in this encounter Visit Diagnoses Diagnosis Female infertility, unspecified documented in this encounter Care Teams Rotor Assembler Relationship Specialty Start Date End Date Allyssa Robles, RN Registered Nurse Reproductive Endocrinology and Infertility 12/25/23 documented as of this encounter
--- OUTSIDE RECORDS SUMMARY | 2025-02-14 15:45 | XMS_ITS | Encounter Summary ---
Author Organization [facility] Address [address] [place] [address] Phone Care Team Providers Care Cotton Weigher Name Role Phone Allyssa Robles RN Unavailable Unavailable Encounter Details Date Type Department Care Team (Late st Contact Info) Description 06/06/2024 Lab Requisition [facility] [address] [place] [phone] America Chavez, FREIGHT LOADING SUPERVISOR-CREATIVE WRITING ENGLISH PROFESSOR [address] [place] [address] Female infertility, unspecified Social History Tobacco Use [...] LAB IMMUNOASSAY METHOD 06/06/2024 11:56 AM EST [facility] Blood Venous blood specimen / Unknown 06/06/2024 7:00 AM EST 06/06/2024 10:58 AM EST Narrative [facility] - 06/06/2024 11:56 AM EST REF VALUES FOLLICULAR PHASE 20-144 MID CYCLE 64-357 LUTEAL PHASE 56-214 POSTMENOPAUSE < 32 PREPUBERTY < 20 FEMALE 10-18Y 8-110 MALE 10-18Y < 20 ADULT MALE < 40 America Chavez FREIGHT LOADING SUPERVISOR-CREATIVE WRITING ENGLISH PROFESSOR LAB BLOOD ORDERABLES Final Result [facility] [address] [place] [phone] * Progesterone (06/06/2024 7:00 AM EST) Progesterone 0.8 ng/mL LAB IMMUNOASSAY METHOD 06/10/2024 8:43 PM EST [facility] Comment: Blood Venous blood specimen / Unknown 06/06/2024 7:00 AM EST 06/06/2024 10:58 AM EST Narrative [facility] - 06/10/2024 8:43 PM EST REF VALUES Male <0.2-0.8 Follicular Phase <0.2-1.5 Luteal Phase 7.4-15.4 Post Menopausal <0.2-0.2 1ST Trimester 12.0-84.0 2ND Trimester 10.2-58.8 3RD Trimester 46.5-160 Progesterone is performed using the DFine Access Immunoassay. Progesterone testing is performed using a different test methodology at [facility] than other [facility]. Direct result comparison should only be made within the same method. America Chavez FREIGHT LOADING SUPERVISOR-CREATIVE WRITING ENGLISH PROFESSOR LAB BLOOD ORDERABLES Edite d Result - Final [facility] [address] [place] [phone] documented in this encounter Visit Diagnoses Diagnosis Female infertility, unspecified documented in this encounter Care Teams Cotton Weigher Relationship Specialty Start Date End Date Allyssa Robles, RN Registered Nurse Reproductive Endocrinology and Infertility 12/25/23 documented as of this encounter
--- OUTSIDE RECORDS SUMMARY | 2025-02-14 15:45 | XMS_ITS | Encounter Summary ---
Author Organization [facility] Address [address] [place] [address] Care Team Providers Care Vehicle Body Maker Name Role Phone Unavailable Primary Care Provider Unavailabl e Encounter Details Date Type Department Care Team (Late st Contact Info) Description 08/02/2024 Abstract [facility] [address] [facility] [address] Layo Courtney DO [address] [facility] [place] [address] Social History Tobacco Use Types Packs/Day Years [...]
--- OUTSIDE RECORDS SUMMARY | 2025-02-14 15:45 | XMS_ITS | Clinical Summary ---
Author Organization [facility] Address [address] [place] [address] Phone Care Team Providers Care Camera Tuning Engineer Name Role Phone Allyssa Robles RN Unavailable Unavailable Allergies Active Allergy Reactions Criticality Noted Date Comments Latex Rash Low 2023 Nickel Rash Low 2023 Medications [id number]- [id number] 29-1-400 mg combo pack,tablet and cap,DR [...] C Antibody (2023 10:21 AM EDT) Pathologist [facility] Hepatitis C Anitbody Nonreactive Nonreactive LAB IMMUNOASSAY METHOD 2023 7:11 PM EDT [facility] Comment:Results from patient s taking biotin supplements or receiving high-dose biotin therapy should be interpreted with caution due to possible interference with this test. Providers may contact their local laboratory for further information. Blood Venous blood specimen / Unknown Venipuncture / Unknown 2023 10:21 AM EDT 2023 10:21 AM EDT us Trish Sun MONOGRAM MACHINE OPERATOR-USED CAR MANAGER LAB BLOOD ORDERABLES Fin al Result [facility] [id number] [place], [place] [phone] * HIV 1/2 Antigen/Antibody Screen with Reflex to Confirmation (2023 10:21 AM EDT) HIV 1/2 Antigen/Antibo dy Screen with Reflex to Confirmation Nonreactive Nonreactive LAB IMMUNOASSAY METHOD 2023 7:37 PM EDT [facility] Blood Venous blood specimen / Unknown Venipuncture / Unknown 2023 10:21 AM EDT 2023 10:21 AM EDT Narrative [facility] - 2023 7:37 PM EDT HIV Ag/Ab screen is performed using the Siemens [employer] HIV Ag/Ab Combo assay which detects the presence of HIV p24 antigen as well as antibodies to HIV-1 (Group M and O) and HIV-2. No laboratory evidence of HIV infection. If acute HIV infection is suspected, consider testing for HIV RNA by PCR (viral load). Trish Sun MONOGRAM MACHINE OPERATOR-USED CAR MANAGER LAB BLOOD ORDERABLES Fin al Result [facility] [address] [facility] [id number] [place] [address] from Last 3 Months or Most Recently Relevant to Health Maintenance Insurance [employer] [place] [employer] [place] [employer] Care Teams Camera Tuning Engineer Relationship Specialty Start Date End Date Allyssa Robles, RN Registered Nurse Reproductive Endocrinology and Infertility 12/25/23
--- OUTSIDE RECORDS SUMMARY | 2025-02-14 15:45 | XMS_ITS | Encounter Summary ---
Author Organization [facility] Address [address] [place] [address] Care Team Providers Care Pipeline Controller Name Role Phone Unavailable Primary Care Provider Unavailabl e Encounter Details Date Type Department Care Team (Late st Contact Info) Description 09/21/2024 Abstract [facility] [address] [facility] [address] Layo Courtney DO [address] [facility] [place] [address] Social History Tobacco Use Types Packs/Day Years [...]
--- OUTSIDE RECORDS SUMMARY | 2025-02-14 15:45 | XMS_ITS | Encounter Summary ---
Author Organization [facility] Address [address] [place] [address] Care Team Providers Care Supervisor Sewing Room Name Role Phone Unavailable Primary Care Provider Unavailabl e Encounter Details Date Type Department Care Team (Late st Contact Info) Description 11/08/2024 Abstract [facility] [address] [place] [address] [place] [phone] Emilia Donahue MA Social History Tobacco Use [...]
--- OUTSIDE RECORDS SUMMARY | 2025-02-14 15:45 | XMS_ITS | Encounter Summary ---
Author Organization [facility] Address [address] [place] [address] Care Team Providers Care Manager Regional Name Role Phone Unavailable Primary Care Provider Unavailabl e Encounter Details Date Type Department Care Team (Late st Contact Info) Description 04/10/2023 Clinisync Result Encounter [facility] External Department Unsolicited Rula Courtney DO [address] [place] [address] [place] [address] Social History Tobacco Use Types [...] EST Narrative 04/10/2023 3:13 PM EST The [address] [address] Fluoroscopy Report Signed Patient: OLENA PEREYRA MR#: [id number] : 1995 Acct:[id number] Age/Sex: 27 / F ADM Date: 04/10/23 Loc: LAB Attending Dr: Rula Courtney D.O. Ordering Physician: Rula Courtney D.O. Date of Service: 04/10/23 Procedure(s): FL hysterosalpingography Accession Number(s): [id number] cc: Rula Courtney D.O.; Physician,Non-Staff Steven The [place] [address] Patient Name: OLENA PEREYRA MRN: [facility]:[id number] date: 1995 Sex: F Assigned Patient Location: LAB Current Patient Location: Accession/Order Number: [id number] Exam Date: 04/10/2023 14:30 Report Date: 04/10/2023 [...] Lainez M.D. Signed By: 04/10/23 1513 DD/ 1510 TD/TT: Legal Document Assistant: Procedure Note Radiology, Radiologist, MD - 04/10/2023 [place] [address] Fluoroscopy Report Signed Patient: OLENA PEREYRA RMR#: [id number] : 1995Acct:[id number] Age/Sex: 27 / FADM Date: 04/10/23 Loc: LAB Attending Dr: Rula Courtney D.O. Ordering Physician: Rula Courtney D.O. Date of Service: 04/10/23 Procedure(s): FL hysterosalpingography Accession Number(s): [id number] cc: Rula Courtney D.O.; Physician,Non-Staff Steven The [place] [id number] Patient Name: OLENA PEREYRA MRN: [id number] date: 1995 Sex: F Assigned Patient Location: LAB Current Patient Location: Accession/Order Number: [id number] Exam Date: 04/10/2023 14:30 Report Date: 04/10/2023 [...] Sridhar Lainez M.D. Signed By:04/10/23 1513 DD/ 1510 TD/TT: Legal Document Assistant: Rula Court[place] DO [facility] Final Result documented in this encounter Visit Diagnoses Not on filedocumented in this encounter
--- OUTSIDE RECORDS SUMMARY | 2025-02-14 15:45 | XMS_ITS | Encounter Summary ---
Author Organization [facility] Address [address] [place] [address] Care Team Providers Care Dragline Operator Name Role Phone Unavailable Primary Care Provider Unavailabl e Encounter Details Date Type Department Care Team (Late st Contact Info) Description 01/21/2024 Orders Only [facility] [address] [facility] [place] [address] Marilia Elder MA [address] [facility] [place] [address] Social History Tobacco Use Types Packs/Day Years [...]
--- OUTSIDE RECORDS SUMMARY | 2025-02-14 15:45 | XMS_ITS | Encounter Summary ---
Author Organization [facility] Address [address] [place] [address] Care Team Providers Care Grain Sacker Name Role Phone Unavailable Primary Care Provider Unavailabl e Encounter Details Date Type Department Care Team (Late st Contact Info) Description 09/21/2024 Abstract [facility] [address] [facility] [address] Layo Courtney DO [address] [facility] [place] [address] Social History Tobacco Use Types Packs/Day Years [...]
--- OUTSIDE RECORDS SUMMARY | 2025-02-14 15:45 | XMS_ITS | Encounter Summary ---
Author Organization [facility] Address [address] [place] [address] Phone Care Team Providers Care Cut Out Marker Name Role Phone Allyssa Robles RN Unavailable Unavailable Encounter Details Date Type Department Care Team (Late st Contact Info) Description 06/23/2024 Lab Requisition [facility] [address] [place] [address] uJan Chavarria MD [address] [facility] [place]ia [place], [address] [phone] Encounter for test, result unknown Social History [...] LAB IMMUNOASSAY METHOD 06/23/2024 11:04 AM EST [facility] Comment:Low-level positive H CG [...] AM EST 06/23/2024 10:43 AM EST Narrative [facility] - 06/23/2024 11:04 AM EST Total HCG measurement is performed using the Faith Cristopher Access Immunoassay which detects intact HCG and free beta HCG subunit. This test is not indicated for use as a tumor marker. HCG testing is performed using a different test methodology at [facility] than other [facility]. Direct result comparison should only be made within the same method. us Juan Chavarria MD LAB BLOOD ORDERABLES Final R esult [facility] [address] [place] [phone] documented in this encounter Visit Diagnoses Diagnosis Encounter for test, result unknown documented in this encounter Care Teams Cut Out Marker Relationship Specialty Start Date End Date Allyssa Robles, RN Registered Nurse Reproductive Endocrinology and Infertility 12/25/23 documented as of this encounter
--- OUTSIDE RECORDS SUMMARY | 2025-02-14 15:45 | XMS_ITS ---
Author Organization [facility] Address [address] [place] [address] Phone Care Team Providers Care Corporate Communications Manager Name Role Phone Allyssa Robles RN Unavailable Unavailable [facility] Status:Enrolled (Active) Start date:02/24/2024 Enrollment date:02/29/2024 Enrollment reason:Identified from a specialty prescription Current support & services provided:Refill Management, Benefits and PA Management Linked medications:lidocaine/prilocaine (Active), progesterone (Active), transparent dressing () Continued Care and Services Coordination
[2025-02-14 15:50] VITALS: BP 121/82; PULSE 105
--- OUTSIDE RECORDS SUMMARY | 2025-02-14 15:50 | XMS_ITS | CCD ---
Author Organization [facility] Care Team Providers Care Clipper Automatic Name Role Phone Rachana LYONS Primary Care Physician SHERWIN ., DR HORTA Attending Unavailable SHERWIN ., DR HORTA Admitting Unavailable SHERWIN ., DR HORTA Consulting Unavailable SHERWIN ., DR HORTA Admitting Unavailable SHERWIN ., DR HORTA Consulting Unavailable SHERWIN ., DR HORTA Attending Unavailable UNLU, RACQUEL Consulting Unavailable Princess Rapp Primary Care Physician [phone] Allyssa Robles RN Unavailable Unavailable Mallory Jauregui [...] Unavailable DWIGHT, AMERICA R Referring Unavailable GABE, ODNYA L Referring Unavailable GABE, DONYA L Referring [...] Allergy 03-16-2023 Unknown (qualifier value), Unknown [facility] Work Phone: (20 sources) Latex; Translations: [Latex] Drug allergy 03-16-[address] [facility] Work Phone: (20 sources) nickel; Translations: [Nickel] Drug Allergy 03-16-2023 Rash, Itching [facility] Work Phone: Medications Current [...] Do not use to face, armpits, groin., [facility]/pharmacy #[id number], 162, cm, 10/02/23 11:23:00 EDT, Height/Length Dosing, 76.7, kg, 10/02/23 11:23:00 EDT, Weight Dosing Start Date: 10/02/23 Status: Ordered Start: 02-10-2022 clobetasol pro pionate 0.05% top oint 1 bonifacio, Topical, BID, 45 gram, Refill(s) 0, Apply a thin film to affected area. Do not use to face, armpits, groin., [facility] 1986, 160, cm, 07/24/21 17:02:00 EDT, Height/Length Dosing, 71.6, kg, 07/24/21 17:02:00 EDT, Weight Dosing Start Date: 02/10/22 Status: Ordered Start: 01-29-2021 clobetasol pro pionate 0.05% top oint 1 bonifacio, Topical, BID, 45 gram, Refill(s) 1, [facility] 1986, 160, cm, 01/29/21 [...] spasm, # 30 tab(s), Refills(s) 1, Pharmacy: [facility]/pharmacy #[id number], 162, cm, 02/19/23 [...] Refill(s) 6, Therapeutic tx; may refill early, [facility] 1986, 160, cm, 09/27/20 [...] Refill(s) 6, Therapeutic tx; may refill early, [facility] 1986, 160, cm, 09/27/20 [...] tablets Indications: Pruritus of in second trimester ([facility]) Day 1: 6 tablets Day 2: 5 tablets Day 3: 4 tablets Day 4: 3 tablets Day 5: 2 tablets Day 6: 1 tablet 21 tablet 10/04/2024 12/06/2024 Discontinued Start: 10-04-2024 methylPREDNISo lone (Medrol Dospak) 4 MG tablets Indications: Pruritus of in second trimester ([facility]) Day 1: 6 tablets Day 2: [...] hour of each main meal containing fat, [facility] 1986, 160, cm, 07/24/21 17:02:00 EDT, [...] Take 1 each by mouth Daily Active qgcnwqku66-fzyr-zvv ic-omega3 29-1-400 mg combo pack,tablet and cap,DR (14 sources) bqkzavvl65-dhnl- f olic-omega3 29-1-400 mg combo pack,tablet and [...] Daily, # 90 tab(s), Refills(s) 3, Pharmacy: [facility]/pharmacy #[id number], 162, cm, 10/02/23 11:23:00 EDT, Height/Length Dosing, 76.7, kg, 10/02/23 11:23:00 EDT, Weight Dosing Start Date: 10/02/23 Status: Ordered Start: 08-27-2023 take 2 tablets by mo uth once daily Topamax 25 mg Tab 50 mg = 2 tab(s), Oral, Daily, # 180 tab(s), Refills(s) 0, Pharmacy: [facility]/pharmacy #[id number], 162, cm, 08/27/23 [...] 4-7, # 90 tab(s), Refills(s) 1, Pharmacy: [facility]/pharmacy #[id number], 162, cm, 02/19/23 [...] US OB BPP W NON-STRESS on 02-07-2025 [place] [address] Ultrasound Report Signed Patient: SYDNEY ROMERO MR#: [id number] : 1995 Acct:[id number] Age/Sex: 29 / F ADM Date: 02/07/25 Loc: [facility] 254-[address]: Layo Courtney D.O. Ordering Physician: Layo Courtney D.O. Date of Service: 02/07/25 Procedure(s): US OB BPP w non-stress Accession Number(s): [id number] cc: Layo Courtney D.O.; Physician,Non-Staff [place] [address] Patient Name: SYDNEY ROMERO MRN: [id number]:[id number] date: 1995 Sex: F Assigned Patient Location: [facility] Current Patient Location: [facility] Accession/Order Number: [id number] Exam Date: 02/07/2025 14:45 Report Date: 02/07/2025 16:05 At the request of: LAYO COURTNEY DO Procedure: US OB BPP w non-stress Ultrasound biophysical profile INDICATION: IVF FINDINGS: The center line cutter operator reports a BPP of 8 out of 8 LONNY is normal at 10.6 cm. heart rate 147. Heterogeneous appearance of the placenta hypoechoic focus measuring 2.4 x 1.9 x 1.6 cm in size. US/US OB BPP w non-stress IMPRESSION: BPP 8 out of 8. Impression dictated by: Bernabe Romero M.D. 02/07/2025 4:05 PM Dictation Location: [place] [address] Electronically authenticated by: [id number] Y Date: 02/07/2025 16:05 Dictated By: Bernabe Romero M.D. Signed By: 02/07/251606 DD/ 04 TD/TT: Insulation Machine Operator: [facility] Radiology, Radiologist, - 02/07/2025 [place] [address] Ultrasound Report Signed Patient: SYDNEY ROMERO MR#: [id number] : 1995 Acct:[id number] Age/Sex: 29 / F ADM Date: 02/07/25 Loc: [facility] 254-[address]: Layo Courtney D.O. Ordering Physician: Layo Courtney D.O. Date of Service: 02/07/25 Procedure(s): US OB BPP w non-stress Accession Number(s): [id number] cc: Layo Courtney D.O.; Physician,Non-Staff [place] [address] Patient Name: SYDNEY ROMERO MRN: [facility]:[id number] date: 1995 Sex: F Assigned Patient Location: [facility] Current Patient Location: [facility] Accession/Order Number: [id number] Exam Date: 02/07/2025 14:45 Report Date: 02/07/2025 16:05 At the request of: LAYO COURTNEY DO Procedure: US OB BPP w non-stress Ultrasound biophysical profile INDICATION: IVF FINDINGS: The center line cutter operator reports a BPP of 8 out of 8 LONNY is normal at 10.6 cm. heart rate 147. Heterogeneous appearance of the placenta hypoechoic focus measuring 2.4 x 1.9 x 1.6 cm in size. US/US OB BPP w non-stress IMPRESSION: BPP 8 out of 8. Impression dictated by: Bernabe Romero M.D. 02/07/2025 4:05 PM Dictation Location: [place] [address] Electronically authenticated by: [id number] Y Date: 02/07/2025 16:05 Dictated By: Bernabe Romero M.D. Signed By: 02/07/251606 DD/ 04 TD/TT: Insulation Machine Operator: [facility] Radiology Study observation (narrative) [facility] US OB BPP W NON-STRESS Ordered By: Radiologist Radiology on 02-07-2025 [facility] Work Phone: Urinalysis macro (dipstick) panel (U)on 02-07-2025 Bilirubin, UA Negative Negative - 4(70) +++ mg/dL [facility] Blood, UA Negative Negative - 50 Jose/mcL [facility] Clarity, UA Clear [facility] Color, UA Yellow [facility] Glucose, UA Negative Negative - 2000(110) ++++ mg/dL [facility] Interpretation and review of laboratory results Abnormal [facility] Ketones, UA Negative Negative - 160(16) ++++ mg/dL [facility] Leukocytes, UA 3+ Negative - 500+++ Onel/mcL [facility] Nitrite, UA Negative Negative - Positive [facility] pH, UA 6.5 5 - 9 [facility] Protein, UA Trace Negative - 1999(20) ++++ mg/dL [facility] Spec Grav, UA 1.015 1 - 1.03 [facility] Urobilinogen, UA 2.0 0.2 - 12 mg/dL [facility] No Panel InformationOrdered By: Radiologist Radiology on 02-01-2025 [facility] Work Phone: No Panel Informationon 02-01 Radiology Study observation (narrative) [facility] US OB BPP W NON-STRESS on 02-01-2025 [place] [address] Ultrasound Report Signed Patient: SYDNEY ROMERO MR#: [id number] : 1995 Acct:[id number] Age/Sex: 29 / F ADM Date: 01/31/25 Loc: US Attending Dr: Layo Courtney D.O. Ordering Physician: Layo Courtney D.O. Date of Service: 01/31/25 Procedure(s): US OB BPP w non-stress Accession Number(s): [id number] cc: Layo Courtney D.O.; Physician,Non-Staff M.D. [place] [id number] Patient Name: SYDNEY ROMERO MRN: [id number] date: 1995 Sex: F Assigned Patient Location: Current Patient Location: LAB Accession/Order Number: [id number] Exam Date: 01/31/2025 15:22 Report Date: 02/01/2025 [...] [place] M.D. 02/01/2025 9:21 AM Dictation Location: [place] [address] Electronically authenticated by: [id number] Y Date: 02/01/2025 09:21 Dictated By: Mariela Toledo M.D. Signed By: 02/01/25923 DD/ 0 TD/TT: Insulation Machine Operator: [facility] Radiology, Radiologist, - 02/01/2025 [place] [address] Ultrasound Report Signed Patient: SYDNEY ROMERO MR#: [id number] : 1995 Acct:[id number] Age/Sex: 29 / F ADM Date: 01/31/25 Loc: US Attending Dr: Layo Courtney D.O. Ordering Physician: Layo Courtney D.O. Date of Service: 01/31/25 Procedure(s): US OB BPP w non-stress Accession Number(s): [id number] cc: Layo Courtney D.O.; Physician,Non-Staff [place] [id number] Patient Name: SYDNEY ROMERO MRN: [facility]:[id number] date: 1995 Sex: F Assigned Patient Location: US Current Patient Location: LAB Accession/Order Number: [id number] Exam Date: 01/31/2025 15:22 Report Date: 02/01/2025 [...] [place] M.D. 02/01/2025 9:21 AM Dictation Location: [place] [address] Electronically authenticated by: [id number] Y Date: 02/01/2025 09:21 Dictated By: Mariela [place]edo M.D. Signed By: 02/01/25923 DD/ 0 TD/TT: Insulation Machine Operator: [employer] OB GROWTHon 02-01-2025 [place] [address] Ultrasound Report Signed Patient: SYDNEY ROMERO MR#: [id number] : 1995 Acct:[id number] Age/Sex: 29 / F ADM Date: 01/31/25 Loc: US Attending Dr: Layo Courtney D.O. Ordering Physician: Layo Courtney D.O. Date of Service: 01/31/25 Procedure(s): US OB growth Accession Number(s): [id number] cc: Layo Courtney D.O.; Physician,Non-Staff [place] [id number] Patient Name: SYDNEY ROMERO MRN: [id number]:[id number] date: 1995 Sex: F Assigned Patient Location: [facility] Current Patient Location: LAB Accession/Order Number: [id number] Exam Date: 01/31/2025 15:22 Report Date: 02/01/2025 [...] [place] M.D. 02/01/2025 9:21 AM Dictation Location: [place] [address] Electronically authenticated by: [id number] Y Date: 02/01/2025 09:21 Dictated By: Mariela [place] M.D. Signed By: 02/01/25923 DD/ 0 TD/TT: Insulation Machine Operator: [facility] Radiology, Radiologist, - 02/01/[address] [address] Ultrasound Report Signed Patient: SYDNEY ROMERO MR#: [id number] : 1995 Acct:[id number] Age/Sex: 29 / F ADM Date: 01/31/25 Loc: US Attending Dr: Layo Courtney D.O. Ordering Physician: Layo Courtney D.O. Date of Service: 01/31/25 Procedure(s): US OB growth Accession Number(s): [id number] cc: Layo Courtney D.O.; Physician,Non-Staff [place] [phone] Patient Name: SYDNEY ROMERO MRN: [id number]:[id number] date: 1995 Sex: F Assigned Patient Location: [facility] Current Patient Location: LAB Accession/Order Number: [id number] Exam Date: 01/31/2025 15:22 Report Date: 02/01/2025 [...] [place] M.D. 02/01/2025 9:21 AM Dictation Location: [place] [address] Electronically authenticated by: [id number] Y Date: 02/01/2025 09:21 Dictated By: Mariela [place] M.D. Signed By: 02/01/25923 DD/ 0 TD/TT: Insulation Machine Operator: [facility] Urinalysis macro (dipstick) panel (U)on 01-31-2025 Bilirubin, UA Negative Negative - 4(70) +++ mg/dL [facility] Blood, UA Negative Negative - 50 Jose/mcL [facility] Clarity, UA Clear [facility] Color, UA Yellow [facility] Glucose, UA Negative Negative - 1999(110) ++++ mg/dL [facility] Interpretation and review of laboratory results Abnormal [facility] Ketones, UA Negative Negative - 160(16) ++++ mg/dL [facility] Leukocytes, UA 3+ Negative - 500+++ Onel/mcL [facility] Nitrite, UA Negative Negative - Positive [facility] pH, UA 7 5 - 9 [facility] Protein, UA Negative Negative - 1999(20) ++++ mg/dL [facility] Spec Grav, UA 1.01 1 - 1.03 [facility] Urobilinogen, UA 2.0 0.2 - 12 mg/dL [facility] US OB BPP W NON-STRESS on 01-25-[address] [address] Ultrasound Report Signed Patient: SYDNEY ROMERO MR#: [id number] : 1995 Acct:[id number] Age/Sex: 29 / F ADM Date: 01/25/25 Loc: US Attending Dr: Layo Courtney D.O. Ordering Physician: Layo Courtney D.O. Date of Service: 01/25/25 Procedure(s): US OB BPP w non-stress Accession Number(s): [id number] cc: Layo Courtney D.O.; Physician,Non-Staff Steven The [address] [address] Patient Name: SYDNEY ROMERO MRN: [facility]:[id number] date: 1995 Sex: F Assigned Patient Location: [facility] Current Patient Location: US Accession/Order Number: [id number] Exam Date: 01/25/2025 16:50 Report Date: 01/25/2025 18:24 At the request of: LAYO COURTNEY DO Procedure: US OB BPP w non-stress Ultrasound biophysical profile INDICATION: Abnormal biophysical profile 01/24/2025 FINDINGS: The center line cutter operator reports a BPP of 8 out of 8 LONNY is normal at 10.9 cm. heart rate 134. Heterogeneous appearance of the placenta hypoechoic focus measuring 1.3 x 2.8 x 2.0 cm in size. US/US OB BPP w non-stress IMPRESSION: BPP 8 out of 8. Impression dictated by: Bernabe Romero M.D. 01/25/2025 6:24 PM Dictation Location: [place] [address] Electronically authenticated by: [id number] Y Date: 01/25/2025 18:24 Dictated By: Bernabe Romero M.D. Signed By: 01/25/251826 DD/ 23 TD/TT: Insulation Machine Operator: [facility] Radiology, Radiologist, MD - 01/25/[address] [address] Ultrasound Report Signed Patient: SYDNEY ROMERO MR#: [id number] : 1995 Acct:[id number] Age/Sex: 29 / F ADM Date: 01/25/25 Loc: US Attending Dr: Layo Courtney D.O. Ordering Physician: Layo Courtney D.O. Date of Service: 01/25/25 Procedure(s): US OB BPP w non-stress Accession Number(s): [id number] cc: Layo Courtney D.O.; Physician,Non-Staff Steven [place] [id number] Patient Name: SYDNEY ROMERO MRN: [facility]:[id number] date: 1995 Sex: F Assigned Patient Location: [facility] Current Patient Location: US Accession/Order Number: [id number] Exam Date: 01/25/2025 16:50 Report Date: 01/25/2025 18:24 At the request of: LAYO COURTNEY DO Procedure: US OB BPP w non-stress Ultrasound biophysical profile INDICATION: Abnormal biophysical profile 01/24/2025 FINDINGS: The center line cutter operator reports a BPP of 8 out of 8 LONNY is normal at 10.9 cm. heart rate 134. Heterogeneous appearance of the placenta hypoechoic focus measuring 1.3 x 2.8 x 2.0 cm in size. US/US OB BPP w non-stress IMPRESSION: BPP 8 out of 8. Impression dictated by: Bernabe Romero M.D. 01/25/2025 6:24 PM Dictation Location: [place] [address] Electronically authenticated by: [id number] Y Date: 01/25/2025 18:24 Dictated By: Bernabe Romero M.D. Signed By: 01/25/251826 DD/ 23 TD/TT: Insulation Machine Operator: [facility] Radiology Study observation (narrative) [facility] US OB BPP W NON-STRESS Ordered By: Radiologist Radiology on 01-25-2025 [facility] [employer] Work Phone: US OB BPP W NON-STRESS on 01-24-[address] [address] Ultrasound Report Signed Patient: SYDNEY ROMERO MR#: [id number] : 1995 Acct:[id number] Age/Sex: 29 / F ADM Date: 01/24/25 Loc: US Attending Dr: Layo Courtney D.O. Ordering Physician: Layo Courtney D.O. Date of Service: 01/24/25 Procedure(s): US OB BPP w non-stress Accession Number(s): [id number] cc: Layo Courtney D.O.; Physician,Non-Staff [place] [phone] Patient Name: SYDNEY ROMERO MRN: [facility]:[id number] date: 1995 Sex: F Assigned Patient Location: [facility] Current Patient Location: Accession/Order Number: [id number] Exam Date: 01/24/2025 16:10 Report Date: 01/24/2025 19:55 At the request of: LAYO COURTNEY DO Procedure: US OB BPP w non-stress Biophysical profile. Reason for exam: resulting in vitro fertilization COMPARISON: 01/17/2025 TECHNIQUE: Transabdominal imaging of the gravid uterus was obtained. FINDINGS: The center line cutter operator reports a BPP of 6 out of 8 with 0/2 for gross body movements.. LONNY is normal at 11.9 cm. heart rate 148 bpm. US/US OB BPP w non-stress IMPRESSION: BPP 6out of 8. Correlation with NST is suggested. Impression dictated by: Juan Salinas Jr., D.O. 01/24/2025 7:55 PM Dictation Location: [place] [address] Electronically authenticated by: [id number] Y Date: 01/24/2025 19:55 Dictated By: Juan Salinas M.D. Signed By: 01/24/251957 DD/ 54 TD/TT: Insulation Machine Operator: [facility] Radiology, Radiologist, MD - 01/24/2025 [place] [address] Ultrasound Report Signed Patient: SYDNEY ROMERO MR#: [id number] : 1995 Acct:[id number] Age/Sex: 29 / F ADM Date: 01/24/25 Loc: US Attending Dr: Layo Courtney D.O. Ordering Physician: Layo Courtney D.O. Date of Service: 01/24/25 Procedure(s): US OB BPP w non-stress Accession Number(s): [id number] cc: Layo Courtney D.O.; Physician,Non-Staff MDenisa [place] [address] Patient Name: SYDNEY ROMERO MRN: [facility]:[id number] date: 1995 Sex: F Assigned Patient Location: [facility] Current Patient Location: Accession/Order Number: [id number] Exam Date: 01/24/2025 16:10 Report Date: 01/24/2025 19:55 At the request of: LAYO COURTNEY DO Procedure: US OB BPP w non-stress Biophysical profile. Reason for exam: resulting in vitro fertilization COMPARISON: 01/17/2025 TECHNIQUE: Transabdominal imaging of the gravid uterus was obtained. FINDINGS: The center line cutter operator reports a BPP of 6 out of 8 with 0/2 for gross body movements.. LONNY is normal at 11.9 cm. heart rate 148 bpm. US/US OB BPP w non-stress IMPRESSION: BPP 6out of 8. Correlation with NST is suggested. Impression dictated by: Juan Salinas Jr., D.O. 01/24/2025 7:55 PM Dictation Location: [place] [address] Electronically authenticated by: [id number] Y Date: 01/24/2025 19:55 Dictated By: Juan Salinas M.D. Signed By: 01/24/251957 DD/ 54 TD/TT: Insulation Machine Operator: [facility] Radiology Study observation (narrative) [facility] US OB BPP W NON-STRESS Ordered By: Radiologist Radiology on 01-24-2025 [facility] Work Phone: US OB BPP W NON-STRESS on 01-18-2025 [place] [address] Ultrasound Report Signed Patient: SYDNEY ROMERO MR#: [id number] : 1995 Acct:[id number] Age/Sex: 29 / F ADM Date: 01/17/25 Loc: US Attending Dr: Layo Courtney D.O. Ordering Physician: Layo Courtney D.O. Date of Service: 01/17/25 Procedure(s): US OB BPP w non-stress Accession Number(s): [id number] cc: Layo Courtney D.O.; Physician,Non-Staff [place] [address] Patient Name: SYDNEY ROMERO MRN: [id number] date: 1995 Sex: F Assigned Patient Location: [facility] Current Patient Location: Accession/Order Number: [id number] Exam Date: 01/17/2025 16:08 Report Date: 01/18/2025 [...] [place] M.D. 01/18/2025 9:02 AM Dictation Location: [place] [address] Electronically authenticated by: [id number] Y Date: 01/18/2025 09:02 Dictated By: Mariela [place] M.D. Signed By: 01/18/25904 DD/ 1 TD/TT: Insulation Machine Operator: [facility] Radiology, Radiologist, MD - 01/18/2025 [place] [address] Ultrasound Report Signed Patient: SYDNEY ROMERO MR#: [id number] : 1995 Acct:[id number] Age/Sex: 29 / F ADM Date: 01/17/25 Loc: US Attending Dr: Layo Courtney D.O. Ordering Physician: Layo Courtney D.O. Date of Service: 01/17/25 Procedure(s): US OB BPP w non-stress Accession Number(s): [id number] cc: Layo Courtney D.O.; Physician,Non-Staff [place] [phone] Patient Name: SYDNEY ROMERO MRN: [facility]:[id number] date: 1995 Sex: F Assigned Patient Location: [facility] Current Patient Location: Accession/Order Number: [id number] Exam Date: 01/17/2025 16:08 Report Date: 01/18/2025 [...] [place] M.D. 01/18/2025 9:02 AM Dictation Location: [employer] Electronically authenticated by: [id number] Y Date: 01/18/2025 09:02 Dictated By: Marieal Toledo M.D. Signed By: 01/18/25904 DD/ 1 TD/TT: Insulation Machine Operator: [facility] Radiology Study observation (narrative) [facility] OB BPP W NON-STRESS Ordered By: Radiologist Radiology on 01-18-2025 [facility] Work Phone: Urinalysis macro (dipstick) panel (U)on 01-16-2025 Bilirubin, UA Negative Negative - 4(70) +++ mg/dL [facility] Blood, UA Negative Negative - 50 Joes/mcL [facility] Clarity, UA Clear [facility] Color, UA Yellow [facility] Glucose, UA Negative Negative - 2000(110) ++++ mg/dL [facility] Interpretation and review of laboratory results Abnormal [facility] Ketones, UA Negative Negative - 160(16) ++++ mg/dL [facility] Leukocytes, UA Positive Negative - 500+++ Onel/mcL [facility] Nitrite, UA Negative Negative - Positive [facility] pH, UA 6 5 - 9 [facility] Protein, UA Positive Negative - 2000(20) ++++ mg/dL [facility] Spec Grav, UA 1.03 1 - 1.03 [facility] Urobilinogen, UA 1.0 0.2 - 12 mg/dL [facility] US OB BPP W NON-STRESS on 01-10-2025 [place] [address] Ultrasound Report Signed Patient: SYDNEY ROMERO MR#: [id number] : 1995 Acct:[id number] Age/Sex: 29 / F ADM Date: 01/10/25 Loc: US Attending Dr: Layo Courtney D.O. Ordering Physician: Layo Courtney D.O. Date of Service: 01/10/25 Procedure(s): US OB BPP w non-stress Accession Number(s): [id number] cc: Layo Courtney D.O.; Physician,Non-Staff Steven [place] [phone] Patient Name: SYDNEY ROMERO MRN: [id number] date: 1995 Sex: F Assigned Patient Location: US Current Patient Location: Accession/Order Number: [id number] Exam Date: 01/10/2025 16:03 Report Date: 01/10/2025 [...] Romero M.D. 01/10/2025 9:07 PM Dictation Location: [place] [address] Electronically authenticated by: [id number] Y Date: 01/10/2025 21:07 Dictated By: Bernabe Romero M.D. Signed By: 01/10/252109 DD/ 06 TD/TT: Insulation Machine Operator: [facility] Radiology, Radiologist, MD - 01/10/2025 [place] [address] Ultrasound Report Signed Patient: SYDNEY ROMERO MR#: [id number] : 1995 Acct:[id number] Age/Sex: 29 / F ADM Date: 01/10/25 Loc: US Attending Dr: Layo Courtney D.O. Ordering Physician: Layo Courtney D.O. Date of Service: 01/10/25 Procedure(s): US OB BPP w non-stress Accession Number(s): [id number] cc: Layo Courtney D.O.; Physician,Non-Staff [place] [address] Patient Name: SYDNEY ROMERO MRN: [facility]:[id number] date: 1995 Sex: F Assigned Patient Location: US Current Patient Location: Accession/Order Number: [id number] Exam Date: 01/10/2025 16:03 Report Date: 01/10/2025 [...] Romero M.D. 01/10/2025 9:07 PM Dictation Location: [place] [address] Electronically authenticated by: [id number] Y Date: 01/10/2025 21:07 Dictated By: Bernabe Romero M.D. Signed By: 01/10/252109 DD/ 06 TD/TT: Insulation Machine Operator: [facility] Radiology Study observation (narrative) [facility] US OB BPP W NON-STRESS Ordered By: Radiologist Radiology on 01-10-2025 [facility] Work Phone: Urinalysis macro (dipstick) panel (U)on 01-03-2025 Bilirubin, UA Negative Negative - 4(70) +++ mg/dL [facility] Blood, UA Negative Negative - 50 Jose/mcL [facility] Clarity, UA Clear [facility] Color, UA Yellow [facility] Glucose, UA Trace Negative - 2000(110) ++++ mg/dL [facility] Interpretation and review of laboratory results Abnormal [facility] Ketones, UA Negative Negative - 160(16) ++++ mg/dL [facility] Leukocytes, UA Positive Negative - 500+++ Onel/mcL [facility] Nitrite, UA Negative Negative - Positive [facility] pH, UA 8 5 - 9 [facility] Protein, UA Negative Negative - 2000(20) ++++ mg/dL [facility] Spec Grav, UA 1.015 1 - 1.03 [facility] Urobilinogen, UA 1.0 0.2 - 12 [...] II, MD, PHD at 22-Dec-2024 08:03:[address] [facility] Normal Not Available Comment on above: Order Comment: US OB SCAN FOR GROWTH Estimated Date of Delivery: 03/01/25 Gestational Age as of 12/06/2024: 27w6d Urinalysis macro (dipstick) panel (U)on 12-19-2024 Bilirubin, UA Negative Negative - 4(70) +++ mg/dL [facility] Blood, UA Positive Negative - 50 Jose/mcL [facility] Clarity, UA Clear [facility] Color, UA Yellow [facility] Glucose, UA Negative Negative - 2000(110) ++++ mg/dL [facility] Interpretation and review of laboratory results Abnormal [facility] Ketones, UA Negative Negative - 160(16) ++++ mg/dL [facility] Leukocytes, UA Positive Negative - 500+++ Onel/mcL [facility] Comment on above: 3+ Nitrite, UA Negative Negative - Positive [facility] pH, UA 6 5 - 9 [facility] Protein, UA Positive Negative - 2000(20) ++++ mg/dL [facility] Spec Grav, UA 1.03 1 - 1.03 [facility] Urobilinogen, UA 1.0 0.2 - 12 mg/dL [facility] GLUCOSE TOLERANCE 3 HOURon 0 12-06-2024 GLUCOSE TOLERANCE 3 HOUR mg/dL [facility] Comment on above: GLU FAST 90 (<95) Co l: 12/06/24 1126 GLU 1HR 143 (<180) Col: 12/06/24 1235 GLU 2HR 132 (<155) Col: 12/06/24 1327 GLU 3HR 81 (<140) Col: 12/06/24 1432 [facility] Urinalysis macro (dipstick) panel (U)on 12-06-2024 Bilirubin, UA Negative Negative - 4(70) +++ mg/dL [facility] Blood, UA Negative Negative - 50 Jose/mcL [facility] Clarity, UA Clear [facility] Color, UA Yellow [facility] Glucose, UA Negative Negative - 1999(110) ++++ mg/dL [facility] Interpretation and review of laboratory results Abnormal [facility] Ketones, UA Negative Negative - 160(16) ++++ mg/dL [facility] Leukocytes, UA 3+ Negative - 500+++ Onel/mcL [facility] Nitrite, UA Negative Negative - Positive [facility] pH, UA 8 5 - 9 [facility] Protein, UA Negative Negative - 1999(20) ++++ mg/dL [facility] Spec Grav, UA 1.015 1 - 1.03 [facility] Urobilinogen, UA 1.0 0.2 - 12 mg/dL [facility] ALL CBC WITH AUTO DIFFon BASOPHILS ABSOLUTE AUTO 0 N [facility] Basophils/100 WBC (Bld) 0.3 % 0.2 - 2.0 % [facility] Eosinophils/100 WBC (Bld) 1.1 % 0.9 - 7.0 % [facility] Erythrocyte distribution width (RBC) [Ratio] 12.4 % 11.0 - 15.0 % [facility] Hematocrit (Bld) [Volume fraction] 38.9 % 36.0 - 48.0 % [facility] Hemoglobin (Bld) [Mass/Vol] 13.6 g/dL 12.0 - 16.0 g/dL [facility] IMMATURE GRANULOCYTES ABS AUTO 0.13 High [facility] Immature granulocytes/100 WBC (Bld) 1.4 % High 0.0 - 0.5 % [facility] Interpretation and review of laboratory results Abnormal [facility] LYMPHOCYTES ABSOLUTE AUTO 1.7 [facility] Lymphocytes/100 WBC (Bld) 18.9 % Low 20.5 - 60. 0 % [facility] MCH (RBC) [Entitic mass] 31.5 pg 26. 7 - 34.0 pg [facility] MCHC (RBC) [Mass/Vol] 35 g/dL 29.9 - 35.2 g/dL [facility] MCV (RBC) [Entitic vol] 90 fL 81.0 - 99.0 fL [facility] MONOCYTES ABSOLUTE AUTO 0.4 N [facility] Monocytes/100 WBC (Bld) 4.6 % 1.7 - 12.0 % [facility] NEUTROPHILS ABSOLUTE AUTO 6.8 High [facility] Neutrophils/100 WBC (Bld) 73.7 % 43.0 - 75. 0 % [facility] Platelet mean volume (Bld) [Entitic vol] 11.3 fL 9.5 - 13.5 fL [facility] EO # 0.1 [facility] PLT 142 Low [facility] RBC 4.32 [facility] WBC 9.2 [facility] Urinalysis macro (dipstick) panel (U)on 11-09-2024 Bilirubin, UA Negative Negative - 4(70) +++ mg/dL [facility] Blood, UA Negative Negative - 50 Jose/mcL [facility] Clarity, UA Clear [facility] Color, UA Yellow [facility] Glucose, UA Negative Negative - 1999(110) ++++ mg/dL [facility] Interpretation and review of laboratory results Normal [facility] Ketones, UA Negative Negative - 160(16) ++++ mg/dL [facility] Leukocytes, UA Negative Negative - 500+++ Onel/mcL [facility] Nitrite, UA Negative Negative - Positive [facility] pH, UA 5.5 5 - 9 [facility] Protein, UA Negative Negative - 1999(20) ++++ mg/dL [facility] Spec Grav, UA 1.025 1 - 1.03 [facility] Urobilinogen, UA 1.0 0.2 - 12 mg/dL [facility] Urinalysis macro (dipstick) panel (U)on 10-17-2024 Bilirubin, UA Negative Negative - 4(70) +++ mg/dL [facility] Blood, UA Negative Negative - 50 Jose/mcL [facility] Clarity, UA Clear [facility] Color, UA Yellow [facility] Glucose, UA Negative Negative - 1999(110) ++++ mg/dL [facility] Interpretation and review of laboratory results Abnormal [facility] Ketones, UA Negative Negative - 160(16) ++++ mg/dL [facility] Leukocytes, UA Positive Negative - 500+++ Oenl/mcL [facility] Comment on above: small Nitrite, UA Negative Negative - Positive [facility] pH, UA 7 5 - 9 [facility] Protein, UA Negative Negative - 1999(20) ++++ mg/dL [facility] Spec Grav, UA 1.015 1 - 1.03 [facility] Urobilinogen, UA 0.2 0.2 - 12 mg/dL [facility] ALL CBC WITH AUTO DIFFon BASOPHILS ABSOLUTE AUTO 0 N [facility] Basophils/100 WBC (Bld) 0.2 % 0.2 - 2.0 % [facility] Eosinophils/100 WBC (Bld) 3.2 % 0.9 - 7.0 % [facility] Erythrocyte distribution width (RBC) [Ratio] 12.5 % 11.0 - 15.0 % [facility] Hematocrit (Bld) [Volume fraction] 37.9 % 36.0 - 48.0 % [facility] Hemoglobin (Bld) [Mass/Vol] 13.2 g/dL 12.0 - 16.0 g/dL [facility] IMMATURE GRANULOCYTES ABS AUTO 0.14 High [facility] Immature granulocytes/100 WBC (Bld) 1.5 % High 0.0 - 0.5 % [facility] Interpretation and review of laboratory results Abnormal [facility] LYMPHOCYTES ABSOLUTE AUTO 2 [facility] Lymphocytes/100 WBC (Bld) 20.8 % 20.5 - 60. 0 % [facility] MCH (RBC) [Entitic mass] 30.9 pg 26. 7 - 34.0 pg [facility] MCHC (RBC) [Mass/Vol] 34.8 g/dL 29.9 - 35.2 g/dL [facility] MCV (RBC) [Entitic vol] 88.8 fL 81.0 - 99.0 fL [facility] MONOCYTES ABSOLUTE AUTO 0.7 N [facility] Monocytes/100 WBC (Bld) 7.2 % 1.7 - 12.0 % [facility] NEUTROPHILS ABSOLUTE AUTO 6.3 [facility] Neutrophils/100 WBC (Bld) 67.1 % 43.0 - 75. 0 % [facility] Platelet mean volume (Bld) [Entitic vol] 11.1 fL 9.5 - 13.5 fL [facility] TBH EO # 0.3 [facility] PLT 153 [facility] RBC 4.27 [facility] TB WBC 9.4 [facility] US OB DETAIL ANATOMYon 10-07-2024 US [...] EFW (oz) 12 oz EFW by: Hadlock ([id number]) Extended Application Packaging Consultant 6.0 mm CM 4.4 mm 36% Nicolaides [...] Normal LVOT view: Normal 3-vessel view: Normal 3-eroazi-csykmrs view: Normal Heart / Thorax Situs: situs [...] Normal L (more content not included)... Normal [facility] US for pregnancyon Interpreted by: Ad [...] EFW (oz) 12 oz EFW by: Hadlock ([id number]) Extended Application Packaging Consultant 6.0 mm CM 4.4 mm 36% Nicolaides [...] Normal LVOT view: Normal 3-vessel view: Normal 6-yxzxdh-fcpyard view: Normal Heart / Thorax Situs: situs [...] Assisted Reproductive Technology History ====== General History Davegu647 cm Height (ft)5 ft Height (in)3 in Previous Outcomes Gravida1 Para0 Maternal Assessment Upgnvi682 cm Height (ft)5 ft Height (in)3 in Hczofk20 kg Weight (lb)165 lb Weight gain0 kg [...] 87% Hadlock Femur32.4 mm20w 1d 73% Hadlock Fywgory65.4 mm 45% Chitty HC / AC1.05 2% Hadlock CFW749 g20w 1d 91% Hadlock EFW (lb)0 lb EFW (oz)12 oz EFW by:Hadlock ([id number]) Extended Vp6.0 mm CM4.4 mm 36% Nicolaides Nasal bone4.7 mm Head / Face / Neck Cephalic index0.74 10% Nicolaides Nasal bone:present Extremities / Bony Struc FL / BPD0.74 92% Hadlock FL / HC0.20 96% Hadlock FL / AC0.21 35% Hadlock Other Structures USN163 bpm Anatomy Cranium:Normal Lateral ventricles:Normal Choroid plexus:Normal [...] view:Normal RVOT view:Normal LVOT view:Normal 3-vessel view:Normal 5-jjrpxu-xawfnyt view:Normal Heart / Thorax Situs:situs solitus (normal) [...] lower leg:Normal (more content not included)... [facility] Work Phone: Source Facility: [facility] Interpreted by: Ad Ovalle Indication ======== Screening [...] EFW (oz) 12 oz EFW by: Hadlock ([id number]) Extended Application Packaging Consultant 6.0 mm CM 4.4 mm 36% Nicolaides [...] Normal LVOT view: Normal 3-vessel view: Normal 4-ozvjmv-ttvuoqs view: Normal Heart / Thorax Situs: situs [...] Radiology, Radiologist, MD - 10/07/2024 Source Facility: [facility] Interpreted by: Ad Ovalle Indication ======== Screening [...] EFW (oz) 12 oz EFW by: Hadlock ([id number]) Extended Application Packaging Consultant 6.0 mm CM 4.4 mm 36% Nicolaides [...] Normal LVOT view: Normal 3-vessel view: Normal 5-gfyoei-ppxwasn view: Normal Heart / Thorax Situs: situs [...] Normal Lt forear (more content not included)... [facility] Radiology Study observation (narrative) [facility] Work Phone: Radiology Study observation (narrative) [facility] US for pregnancyOrdered By: Ad Ovalle on 10-07-2024 [facility] Work Phone: US for pregnancyOrdered By: Radiologist Radiology on 10-07-2024 [facility] Work Phone: RECURRENT VAGINITIS (HTRX)on 09-07-2024 ATOPOBIUM VAGINAE 0 [facility] ATOPOBIUM VAGINAE Not detected [facility] BVAB 2,3 (BACTERIAL VAGINOSIS ASSOCIATED BACTERIA 2, 3); MOBILUNCUS SPP 0 [facility] BVAB 2,3 (BACTERIAL VAGINOSIS ASSOCIATED BACTERIA 2, 3); MOBILUNCUS SPP Not detected [facility] PRESTON ALBICANS, PARAPSILOSIS, TROPICALIS 0 [facility] PRESTON ALBICANS, PARAPSILOSIS, TROPICALIS Not detected [facility] PRESTON GLABRATA 0 [facility] PRESTON GLABRATA Not [facility] KRUSEI 0 [facility] PRESTON KRUSEI Not [facility] CHLAMYDIA TRACHOMATIS 0 [facility] CHLAMYDIA TRACHOMATIS Not detected N S [facility] GARDNERELLA VAGINALIS [address] [facility] [address] [facility] GARDNERELLA VAGINALIS Not detected N [facility] MEGASPHAERA (TYPES 1, 2) 0 [facility] MEGASPHAERA (TYPES 1, 2) Not detected [facility] MYCOPLASMA GENITALIUM 0 [facility] MYCOPLASMA GENITALIUM Not detected N [facility] NEISSERIA GONORRHOEAE 0 [facility] [address] [facility] NEISSERIA GONORRHOEAE Not detected N [facility] TRICHOMONAS VAGINALIS 0 [facility] [address] [facility] TRICHOMONAS VAGINALIS Not detected N [facility] Urinalysis macro (dipstick) panel (U)on 09-06-2024 Bilirubin, UA Negative Negative - 4(70) +++ mg/dL [facility] Blood, UA Negative Negative - 50 Jose/mcL [facility] Clarity, UA Clear [facility] Color, UA Yellow [facility] Glucose, UA Negative Negative - 2000(110) ++++ mg/dL [facility] Interpretation and review of laboratory results Abnormal [facility] Ketones, UA Negative Negative - 160(16) ++++ mg/dL [facility] Leukocytes, UA Positive Negative - 500+++ Onel/mcL [facility] Comment on above: small Nitrite, UA Negative Negative - Positive [facility] pH, UA 6 5 - 9 [facility] Protein, UA Negative Negative - 1999(20) ++++ mg/dL [facility] Spec Grav, UA 1.03 1 - 1.03 [facility] Urobilinogen, UA 0.2 0.2 - 12 mg/dL [facility] ALL CBC WITH AUTO DIFFon BASOPHILS ABSOLUTE AUTO 0 N [facility] Basophils/100 WBC (Bld) 0.2 % 0.2 - 2.0 % [facility] Eosinophils/100 WBC (Bld) 2.9 % 0.9 - 7.0 % [facility] Erythrocyte distribution width (RBC) [Ratio] 12 % 11.0 - 15.0 % [facility] Hematocrit (Bld) [Volume fraction] 39.3 % 36.0 - 48.0 % [facility] Hemoglobin (Bld) [Mass/Vol] 13.6 g/dL 12.0 - 16.0 g/dL [facility] IMMATURE GRANULOCYTES ABS AUTO 0.06 High [facility] Immature granulocytes/100 WBC (Bld) 0.7 % High 0.0 - 0.5 % [facility] Interpretation and review of laboratory results Abnormal [facility] LYMPHOCYTES ABSOLUTE AUTO 2.1 [facility] Lymphocytes/100 WBC (Bld) 25.4 % 20.5 - 60. 0 % [facility] MCH (RBC) [Entitic mass] 30.2 pg 26. 7 - 34.0 pg [facility] MCHC (RBC) [Mass/Vol] 34.6 g/dL 29.9 - 35.2 g/dL [facility] MCV (RBC) [Entitic vol] 87.3 fL 81.0 - 99.0 fL [facility] MONOCYTES ABSOLUTE AUTO 0.5 N [facility] Monocytes/100 WBC (Bld) 5.8 % 1.7 - 12.0 % [facility] NEUTROPHILS ABSOLUTE AUTO 5.5 [facility] Neutrophils/100 WBC (Bld) 65 % 43.0 - 75. 0 % [facility] Platelet mean volume (Bld) [Entitic vol] 10.9 fL 9.5 - 13.5 fL [facility] TBH EO # 0.2 [facility]H PLT 151 [facility] TB RBC 4.5 [facility] TB WBC 8.4 [facility] Urinalysis macro (dipstick) panel (U)on 08-08-2024 Bilirubin, UA Negative Negative - 4(70) +++ mg/dL [facility] Blood, UA Negative Negative - 50 Jose/mcL [facility] Clarity, UA Clear [facility] Color, UA Yellow [facility] Glucose, UA Negative Negative - 1999(110) ++++ mg/dL [facility] Interpretation and review of laboratory results Abnormal [facility] Ketones, UA Negative Negative - 160(16) ++++ mg/dL [facility] Leukocytes, UA Positive Negative - 500+++ Onel/mcL [facility] Comment on above: small Nitrite, UA Negative Negative - Positive [facility] pH, UA 6 5 - 9 [facility] Protein, UA Negative Negative - 1999(20) ++++ mg/dL [facility] Spec Grav, UA 1.025 1 - 1.03 [facility] Urobilinogen, UA 0.2 0.2 - 12 mg/dL [facility] HCG ( test) Ql (U)o n 07-29-2024 Interpretation and review of laboratory results Abnormal [facility] Preg Test, Ur Positive Negative [facility] Urinalysis macro (dipstick) panel (U)on 07-29-2024 Bilirubin, UA Negative Negative - 4(70) +++ mg/dL [facility] Blood, UA Positive Negative - 50 Jose/mcL [facility] Comment on above: trace Clarity, UA Clear [facility] Color, UA Yellow [facility] Glucose, UA Negative Negative - 1999(110) ++++ mg/dL [facility] Interpretation and review of laboratory results Abnormal [facility] Ketones, UA Negative Negative - 160(16) ++++ mg/dL [facility] Leukocytes, UA Positive Negative - 500+++ Onel/mcL [facility] Comment on above: small Nitrite, UA Negative Negative - Positive [facility] pH, UA 5.5 5 - 9 [facility] Protein, UA Negative Negative - 1999(20) ++++ mg/dL [facility] Spec Grav, UA 1.03 1 - 1.03 [facility] Urobilinogen, UA 0.2 0.2 - 12 mg/dL [facility] PROGESTERONEon 07-12-2024 PROGESTERONE 53.5 ng/mL Normal [facility] Comment on above: Result Comment: Refe rence Ranges Female Follicular Phase < 1.0 Luteal Phase 2.6-21.5 Post menopausal < 0.5 1st Trimester 4.1-34.0 2nd Trimester 24.0-76.0 3rd Trimester 52.0-302.0 Performed By: #### 7 45 #### [facility] [address], [address] [place] [address] Scourer: Alexey Boogie MD US OB TRANSVAGINALon 025 [...] evaluation for early dating. View: Sufficient Normal [facility] Choriogonadotropin.beta subu niton 06-30-2024 HCG.beta subunit Qn 6575 m[IU]/mL High <5 [facility] Comment on above: Order Comment: Total HCG measurement is performed using the [employer] Access Immunoassay which detects intact HCG and free beta HCG subunit. This test is not indicated for use as a tumor marker. HCG testing is performed using a different test methodology at [facility] than formerly [facility]. Direct result comparison should only be [...] By: #### 2 1198-7 #### JOSEPH ESQUIVEL ([id number]) [facility] ([facility]) [address] [place] [address] Choriogonadotropin.beta subu niton 06-23-2024 HCG.beta subunit Qn 330 m[IU]/mL High <5 [facility] Comment on above: Order Comment: Total HCG measurement is performed using the [employer] Access Immunoassay which detects intact HCG and free beta HCG subunit. This test is not indicated for use as a tumor marker. HCG testing is performed using a different test methodology at [facility] than formerly [facility]. Direct result comparison should only be [...] By: #### 2 1198-7 #### JOSEPH ESQUIVEL ([id number]) [facility] ([facility]) [address] [place], [place] [id number] Estradiolon 06-23-2024 E2 [Mass/Vol] 378 pg/mL Normal [facility] Comment on above: Order Comment: REF V ALUES FOLLICULAR PHASE 20-144 MID CYCLE 64-357 LUTEAL PHASE 56-214 POSTMENOPAUSE < 32 PREPUBERTY < 20 FEMALE 10-18Y 8-110 MALE 10-18Y < 20 ADULT MALE < 40 Estradiol measurement is performed using the [employer] Access Estradiol Immunoassay. Estradiol testing is performed using a different test methodology at [facility] than other [facility]. Direct result comparison should only be made within the same method. Performed By: #### 2 243-4 #### JOSEPH ESQUIVEL ([id number]) [facility] ([facility]) [address] [place], [place] [id number] Progesteroneon 06-23-2024 Progesterone [Mass/Vol] 42.6 ng/mL Normal [facility] Comment on above: Order Comment: REF V ALUES Male <0.2-0.8 Follicular Phase <0.2-1.5 Luteal Phase 7.4-15.4 Post Menopausal <0.2-0.2 1ST Trimester 12.0-84.0 2ND Trimester 10.2-58.8 3RD Trimester 46.5-160 Progesterone is performed using the [employer] Access Immunoassay. Progesterone testing is performed using a different test methodology at [facility] than other [facility]. Direct result comparison should only be made within the same method. Performed By: #### 2 839-9 #### JOSEPH ESQUIVEL ([id number]) [facility] ([facility]) [address] [place] [id number] No Panel Informationon 06-13 Juan Chavarria MD [...] Preop diagnosis: Infertility Post op diagnosis: Same Bilingual Speech Language Pathologist: none Depth: 7 cm Curve: anterior Distance [...] Chavarria 06/13/24 11:24 AM [facility] Work Phone: Progesteroneon 06-13-2024 Progesterone [Mass/Vol] 45.0 ng/mL Normal [facility] Comment on above: Order Comment: REF V ALUES Male <0.2-0.8 Follicular Phase <0.2-1.5 Luteal Phase 7.4-15.4 Post Menopausal <0.2-0.2 1ST Trimester 12.0-84.0 2ND Trimester 10.2-58.8 3RD Trimester 46.5-160 Progesterone is performed using the [employer] Access Immunoassay. Progesterone testing is performed using a different test methodology at [facility] than other [facility]. Direct result comparison should only be made within the same method. Performed By: #### 2 839-9 #### ORA MARQUES ([id number]) [facility] ([facility]) [address] [place] [address] Estradiolon 06-07-2024 E2 [Mass/Vol] 2870 pg/mL Normal [facility] Comment on above: Order Comment: REF V ALUES FOLLICULAR PHASE 20-144 MID CYCLE 64-357 LUTEAL PHASE 56-214 POSTMENOPAUSE < 32 PREPUBERTY < 20 FEMALE 10-18Y 8-110 MALE 10-18Y < 20 ADULT MALE < 40 Performed By: #### 2 243-4 #### JOSEPH ESQUIVEL ([id number]) [facility] ([facility]) [address] [place] [address] Progesteroneon 06-07-2024 Progesterone [Mass/Vol] 0.4 ng/mL Normal [facility] Comment on above: Order Comment: REF V ALUES Male <0.2-0.8 Follicular Phase <0.2-1.5 Luteal Phase 7.4-15.4 Post Menopausal <0.2-0.2 1ST Trimester 12.0-84.0 2ND Trimester 10.2-58.8 3RD Trimester 46.5-160 Progesterone is performed using the [employer] Access Immunoassay. Progesterone testing is performed using a different test methodology at [facility]. Direct result comparison should only be made within the same method. Result Comment: Ref Values Male <0.3- 1.2 Follicular Phase <0.3- 1.4 Luteal Phase 3.3-25.6 Mid-Luteal Phase 4.4-28.0 Postmenopausal <0.3- 0.7 Females: 1st Trimester 11.2- 90.0 2nd Trimester 25.6- 89.4 3RD Trimester 48.4-422.5 Patients receiving DHEA-S supplements may show false elevation of progesterone for results near 1.0 ng/mL. Contact laboratory at [phone] if alternative testing is needed. Performed By: #### 2 839-9 #### JOSEPH ESQUIVEL ([id number]) [facility] ([facility]) [address] [place] [address] [facility] US PELVIS LIMITED FOLLIC LES-FOLLICLE STUDIES PERFORMEDon 06-07-2024 [facility] US PELVIS LIMITED FOLLICLES-FOLLICLE STUDIES PERFORMED Follicle scan performed with follicle measurements in report. and Trilaminar appearance to the endometrium is noted. Normal [facility] Estradiolon 06-06-2024 E2 [Mass/Vol] 558 pg/mL Normal [facility] Comment on above: Order Comment: REF V ALUES FOLLICULAR PHASE 20-144 MID CYCLE 64-357 LUTEAL PHASE 56-214 POSTMENOPAUSE < 32 PREPUBERTY < 20 FEMALE 10-18Y 8-110 MALE 10-18Y < 20 ADULT MALE < 40 Performed By: #### 2 243-4 #### JOSEPH ESQUIVEL ([id number]) [facility] ([facility]) [address] [place] [address] Follicle Diameter USon 06-06 Trilaminar appearance to the endometrium is noted. RIS SECTRA ONLY [facility] Work Phone: Radiology Study observation (narrative) [facility] Work Phone: Progesteroneon 06-06-2024 Progesterone [Mass/Vol] 0.8 ng/mL Normal [facility] Comment on above: Order Comment: REF V ALUES Male <0.2-0.8 Follicular Phase <0.2-1.5 Luteal Phase 7.4-15.4 Post Menopausal <0.2-0.2 1ST Trimester 12.0-84.0 2ND Trimester 10.2-58.8 3RD Trimester 46.5-160 Progesterone is performed using the [employer] Access Immunoassay. Progesterone testing is performed using a different test methodology at [facility] than other [facility]. Direct result comparison should only be made within the same method. Result Comment: Ref Values Male <0.3- 1.2 Follicular Phase <0.3- 1.4 Luteal Phase 3.3-25.6 Mid-Luteal Phase 4.4-28.0 Postmenopausal <0.3- 0.7 Females: 1st Trimester 11.2- 90.0 2nd Trimester 25.6- 89.4 3RD Trimester 48.4-422.5 Patients receiving DHEA-S supplements may show false elevation of progesterone for results near 1.0 ng/mL. Contact laboratory at [phone] if alternative testing is needed. Performed By: #### 2 839-9 #### JOSEPH ESQUIVEL ([id number]) [facility] ([facility]) [address] [place] [address] KELSY US ENDOMETRIAL LINING CH ECKon 06-06-2024 KELSY US ENDOMETRIAL LINING CHECK Trilaminar appearance to the endometrium is noted. Normal [facility] No Panel Informationon 03-22 Juan Chavarria MD 03/22/2024 9:44 AM Egg Retrieval Date/Time: 03/22/2024 9:39 AM Performed by: Juan Chavarria MD Authorized by: Donya Abernathy APRN-MONITOR WORKER Consent: Consent obtained: Verbal and written Consent [...] diagnosis: Female infertility Post op diagnosis: Same Bilingual Speech Language Pathologist: Dr. Warren IV Fluids: 600 cc EBL: 5 cc UOP: Not recorded Specimen: Oocytes Complications: None Number of Oocytes right ovary: 16 Ovarian access (right): Easy Number of Oocytes left ovary: 9 Ovarian access (left): Easy Endometrial thickness: n/a Needle type: Single Additional notes: [facility] Work Phone: Lutropinon 03-21-2024 Lutropin Qn 29.3 IU/L Normal [facility] Comment on above: Result Comment: LH R eference Values Follicular Phase 1.5-10.0 Mid-Cycle 13.0-72.0 Luteal Phase 0.5-13.0 Menopause 15.0-65.0 Pre-puberty 0- 3.0 Children 0- 6.0 Adult Male 1.0- 9.0 Luteinizing Hormone is performed using the [employer] Access Immunoassay. LH testing is performed using a different test methodology at [facility] than [facility]. Direct result comparison should only be made within the same method. Performed By: #### 4 7236-5 #### SHAI Pickard ([id number]) [facility] ([facility]) [address] [place] [address] Progesteroneon 03-21-2024 Progesterone [Mass/Vol] 4.5 ng/mL Normal [facility] Comment on above: Order [...] By: #### 5 6888-1 #### SHAI Pickard ([id number]) [facility] ([facility]) [id number] [place] [address] E2 [Mass/Vol]Ordered By: Shira Rich on 03-20-2024 REF VALUES FOLLICULAR PHASE 20-144 MID CYCLE 64-357 LUTEAL PHASE 56-214 POSTMENOPAUSE < 32 PREPUBERTY < 20 FEMALE 10-18Y 8-110 MALE 10-18Y < 20 ADULT MALE < 40 Estradiol measurement is performed using the [employer] Access Estradiol Immunoassay. Estradiol testing is performed using a different test methodology at [facility] than [facility]. Direct result comparison should only be made within the same method. [facility] EstradiolOrdered By: Bela Rich on 03-20-2024 E2 [Mass/Vol] 4909 pg/mL [facility] Estradiolon 03-20-2024 E2 [Mass/Vol] 4909 pg/mL Normal [facility] Comment on above: Order Comment: HIV [...] By: #### 5 6888-1 #### SHAI Pickard ([id number]) [facility] ([facility]) [address] [place] [address] Follicle Diameter USon 03-20 Follicle scan performed with follicle measurements in report. RIS SECTRA ONLY [facility] Work Phone: Radiology Study observation (narrative) [facility] Work Phone: Progesteroneon 03-20-2024 Progesterone [Mass/Vol] 1.3 ng/mL U [facility] Progesterone [Mass/Vol] 1.3 ng/mL Normal [facility] Comment on above: Order [...] By: #### 5 6888-1 #### SHAI Pickard ([id number]) [facility] ([facility]) [address] [place] [address] Progesterone [Mass/Vol]on REF VALUES Male <0.2-0.8 Follicular Phase <0.2-1.5 Luteal Phase 7.4-15.4 Post Menopausal <0.2-0.2 1ST Trimester 12.0-84.0 2ND Trimester 10.2-58.8 3RD Trimester 46.5-160 Progesterone is performed using the [employer] Access Immunoassay. Progesterone testing is performed using a different test methodology at [facility] than [facility]. Direct result comparison should only be made within the same method. [facility] KELSY US PELVIS LIMITED FOLLIC LES-FOLLICLE STUDIES PERFORMEDon 03-20-2024 KELSY US PELVIS LIMITED FOLLICLES-FOLLICLE STUDIES PERFORMED Follicle scan performed with follicle measurements in report. Normal [facility] Estradiolon 03-19-2024 E2 [Mass/Vol] 3760 pg/mL Normal [facility] Comment on above: Order Comment: HIV [...] By: #### 5 6888-1 #### SHAI Pickard ([id number]) [facility] ([facility]) [id number] [place] [address] Follicle Diameter USon 03-19 Follicle scan performed with follicle measurements in report. RIS SECTRA ONLY [facility] Work Phone: Radiology Study observation (narrative) [facility] Work Phone: Progesteroneon 03-19-2024 Progesterone [Mass/Vol] 1.1 ng/mL Normal [facility] Comment on above: Order [...] By: #### 5 6888-1 #### SHAI Pickard ([id number]) [facility] ([facility]) [address] [place] [address] KELSY US PELVIS LIMITED FOLLIC LES-FOLLICLE STUDIES PERFORMEDon 03-19-2024 KELSY US PELVIS LIMITED FOLLICLES-FOLLICLE STUDIES PERFORMED Follicle scan performed with follicle measurements in report. Normal [facility] E2 [Mass/Vol]on 03-17-2024 REF VALUES FOLLICULAR PHASE 20-144 MID CYCLE 64-357 LUTEAL PHASE 56-214 POSTMENOPAUSE < 32 PREPUBERTY < 20 FEMALE 10-18Y 8-110 MALE 10-18Y < 20 ADULT MALE < 40 Estradiol measurement is performed using the [employer] Access Estradiol Immunoassay. Estradiol testing is performed using a different test methodology at [facility]. Direct result comparison should only be made within the same method. [facility] Estradiolon 03-17-2024 E2 [Mass/Vol] 1462 pg/mL [facility] E2 [Mass/Vol] 1462 pg/mL Normal [facility] Comment on above: Order Comment: HIV [...] By: #### 5 6888-1 #### SHAI Pickard ([id number]) [facility] ([facility]) [address] [place] [address] Follicle Diameter USon 03-17 Follicle scan performed with follicle measurements in report. Trilaminar appearance to the endometrium is noted. Physiologic free fluid is noted in the cul de sac. Notably retroverted uterus. Two small complex ovarian cysts noted, one on the left and one on the right. RIS SECTRA ONLY Radiology Study observation (narrative) [facility] Work Phone: Follicle Diameter USOrdered By: Leigh Ann Tuttle on 03-17-2024 [facility] Work Phone: Progesteroneon 03-17-2024 Progesterone [Mass/Vol] 0.6 ng/mL Normal [facility] Comment on above: Order [...] By: #### 5 6888-1 #### SHAI Pickard ([id number]) [facility] ([facility]) [address] [place] [address] KELSY US PELVIS LIMITED FOLLIC LES-FOLLICLE STUDIES PERFORMEDon 03-17-2024 KELSY US PELVIS LIMITED FOLLICLES-FOLLICLE STUDIES PERFORMED Follicle scan performed with follicle measurements in report. Trilaminar appearance to the endometrium is noted. Physiologic free fluid is noted in the cul de sac. Notably retroverted uterus. Two small complex ovarian cysts noted, one on the left and one on the right. Normal [facility] E2 [Mass/Vol]on 03-15-2024 REF VALUES FOLLICULAR PHASE 20-144 MID CYCLE 64-357 LUTEAL PHASE 56-214 POSTMENOPAUSE < 32 PREPUBERTY < 20 FEMALE 10-18Y 8-110 MALE 10-18Y < 20 ADULT MALE < 40 Estradiol measurement is performed using the [employer] [place] Access Estradiol Immunoassay. Estradiol testing is performed using a different test methodology at [facility]. Direct result comparison should only be made within the same method. [facility] Estradiolon 03-15-2024 E2 [Mass/Vol] 721 pg/mL [facility] E2 [Mass/Vol] 721 pg/mL Normal [facility] Comment on above: Order Comment: REF V ALUESFOLLICULAR PHASE 20-144MID CYCLE 64-357LUTEAL PHASE 56-214POSTMENOPAUSE < 32PREPUBERTY < 20FEMALE 10-18Y 8-110MALE 10-18Y < 20ADULT MALE < 40Estradiol measurement is performed using the [employer] Access Estradiol Immunoassay. Estradiol testing is performed using a different test methodology at [facility]. Direct resultcomparison should only be made within the same method. Performed By: #### 1 6128-1 #### SHAI Pickard ([id number]) [facility] ([facility]) [address] [place] [address] Follicle Diameter USon 03-15 Follicle scan performed with follicle measurements in report., Trilaminar appearance to the endometrium is noted., and Free fluid is noted in the cul de sac. RIS SECTRA ONLY [facility] Work Phone: Radiology Study observation (narrative) [facility] Work Phone: KELSY US PELVIS LIMITED FOLLIC LES-FOLLICLE STUDIES PERFORMEDon 03-15-2024 KELSY US PELVIS LIMITED FOLLICLES-FOLLICLE STUDIES PERFORMED Follicle scan performed with follicle measurements in report., Trilaminar appearance to the endometrium is noted., and Free fluid is noted in the cul de sac. Normal [facility] E2 [Mass/Vol]on 03-09-2024 REF VALUES FOLLICULAR PHASE 20-144 MID CYCLE 64-357 LUTEAL PHASE 56-214 POSTMENOPAUSE < 32 PREPUBERTY < 20 FEMALE 10-18Y 8-110 MALE 10-18Y < 20 ADULT MALE < 40 Estradiol measurement is performed using the [employer] [place] Access Estradiol Immunoassay. Estradiol testing is performed using a different test methodology at [facility]. Direct result comparison should only be made within the same method. [facility] Estradiolon 03-09-2024 E2 [Mass/Vol] pg/mL pg/mL [facility] E2 [Mass/Vol] pg/mL Normal [facility] Comment on above: Order Comment: REF V ALUESFOLLICULAR PHASE 20-144MID CYCLE 64-357LUTEAL PHASE 56-214POSTMENOPAUSE < 32PREPUBERTY < 20FEMALE 10-18Y 8-110MALE 10-18Y < 20ADULT MALE < 40Estradiol measurement is performed using the [employer] Access Estradiol Immunoassay. Estradiol testing is performed using a different test methodology at [facility]. Direct resultcomparison should only be made within the same method. Performed By: #### 1 6128-1 #### SHAI Pickard ([id number]) [facility] ([facility]) [address] [place], [place] [id number] Follicle Diameter USon 03-09 Follicle scan performed with follicle measurements in report., Trilaminar appearance to the endometrium is noted., and Free fluid is noted in the cul de sac. RIS SECTRA ONLY Radiology Study observation (narrative) [facility] Work Phone: Follicle Diameter USOrdered By: Alicia Morgan on 03-09-2024 [facility] Work Phone: Hematocrit Auto (Bld) [Volum e fraction]on 03-09-2024 Hematocrit (Bld) [Volume fraction] 43.2 % 36.0 - 46.0 % [facility] Interpretation and review of laboratory results Normal [facility] Hematocrit (Bld) [Volume fraction] 43.2 % Normal 36.0-46.0 [facility] Comment on above: Performed By: #### 1 6128-1 #### SHAI Pickard ([id number]) [facility] ([facility]) [address] [place] [address] KELSY US PELVIS LIMITED FOLLIC LES-FOLLICLE STUDIES PERFORMEDon 03-09-2024 KELSY US PELVIS LIMITED FOLLICLES-FOLLICLE STUDIES PERFORMED Follicle scan performed with follicle measurements in report., Trilaminar appearance to the endometrium is noted., and Free fluid is noted in the cul de sac. [facility] No Panel Informationon 02-22 Juan [...] diagnosis: Female infertility Post op diagnosis: Same Bilingual Speech Language Pathologist: none IV Fluids: 500 cc EBL: 5 cc UOP: Not recorded Specimen: Oocytes Complications: None Number of Oocytes right ovary: 17 Ovarian acc ss (right): Easy Number of Oocytes left ovary: 13 Ovarian access (left): Easy Endometrial thickness: n/a Needle type: Single Additional notes: [facility] Work Phone: Lutropinon 02-22-2024 Lutropin Qn 35.3 IU/L [facility] Comment on above: Result Comment: LH R eference Values Follicular Phase 1.5-10.0 Mid-Cycle 13.0-72.0 Luteal Phase 0.5-13.0 Menopause 15.0-65.0 Pre-puberty 0- 3.0 Children 0- 6.0 Adult Male 1.0- 9.0 Luteinizing Hormone is performed using the [employer] Access Immunoassay. LH testing is performed using a different test methodology at [facility]. Direct result comparison should only be made within the same method. Performed By: #### 1 6128-1 #### SHAI Pickard ([id number]) [facility] ([facility]) [address] [place] [address] Progesteroneon 02-22-2024 Progesterone [Mass/Vol] 5.0 ng/mL Normal [facility] Comment on above: Order Comment: REF V ALUESMale <0.2-0.8Follicular Phase <0.2-1.5Luteal Phase 7.4-15.4Post Menopausal <0.2-0.21ST Trimester 12.0-84.02ND Trimester 10.2-58.83RD Trimester 46.5-160Progesterone is performed using the [employer] Access Immunoassay.Progesterone testing is performed using a different test methodology at [facility] than [facility]. Direct result comparison should only be made within the same method. Performed By: #### 1 6128-1 #### SHAI Pickard ([id number]) [facility] ([facility]) [address] [place] [address] E2 [Mass/Vol]Ordered By: Christi Infante on 02-21-2024 REF VALUES FOLLICULAR PHASE 20-144 MID CYCLE 64-357 LUTEAL PHASE 56-214 POSTMENOPAUSE < 32 PREPUBERTY < 20 FEMALE 10-18Y 8-110 MALE 10-18Y < 20 ADULT MALE < 40 Estradiol measurement is performed using the [employer] Access Estradiol Immunoassay. Estradiol testing is performed using a different test methodology at [facility]. Direct result comparison should only be made within the same method. [facility] EstradiolOrdered By: Janet Ritchie on 02-21-2024 E2 [Mass/Vol] 5153 pg/mL [facility] Estradiolon 02-21-2024 E2 [Mass/Vol] 5153 pg/mL Normal [facility] Comment on above: Order Comment: REF V ALUESFOLLICULAR PHASE 20-144MID CYCLE 64-357LUTEAL PHASE 56-214POSTMENOPAUSE < 32PREPUBERTY < 20FEMALE 10-18Y 8-110MALE 10-18Y < 20ADULT MALE < 40Estradiol measurement is performed using the [employer] Access Estradiol Immunoassay. Estradiol testing is performed using a different test methodology at [facility]. Direct resultcomparison should only be made within the same method. Performed By: #### 1 6128-1 #### SHAI Pickard ([id number]) [facility] ([facility]) [address] [place] [address] Follicle Diameter USon 02-20 Follicle scan performed with follicle measurements in report. RIS SECTRA ONLY Radiology Study observation (narrative) [facility] Work Phone: Follicle Diameter USOrdered By: Juan Chavarria on 02-21-2024 [facility] Work Phone: Luteinizing Hormone (LH)on Lutropin Qn 0.9 m[IU]/mL IU/L [facility] Comment on above: LH Reference Values Follicular Phase 1.5-10.0 Mid-Cycle 13.0-72.0 Luteal Phase 0.5-13.0 Menopause 15.0-65.0 Pre-puberty 0- 3.0 Children 0- 6.0 Adult Male 1.0- 9.0 Luteinizing Hormone is performed using the [employer] Access Immunoassay. LH testing is performed using a different test methodology at [facility]. Direct result comparison should only be made within the same method. Lutropinon 02-21-2024 Lutropin Qn 0.9 IU/L Normal [facility] Comment on above: Result Comment: LH R eference Values Follicular Phase 1.5-10.0 Mid-Cycle 13.0-72.0 Luteal Phase 0.5-13.0 Menopause 15.0-65.0 Pre-puberty 0- 3.0 Children 0- 6.0 Adult Male 1.0- 9.0 Luteinizing Hormone is performed using the [employer] [place] Access Immunoassay. LH testing is performed using a different test methodology at [facility]. Direct result comparison should only be made within the same method. Performed By: #### 1 6128-1 #### SHAI Pickard ([id number]) [facility] ([facility]) [address] [place] [address] Lutropin Qnon 02-21-2024 [facility] Progesteroneon 02-21-2024 Progesterone [Mass/Vol] 1.3 ng/mL U [facility] Progesterone [Mass/Vol] 1.3 ng/mL Normal U [facility] Comment on above: Order Comment: REF V ALUESMale <0.2-0.8Follicular Phase <0.2-1.5Luteal Phase 7.4-15.4Post Menopausal <0.2-0.21ST Trimester 12.0-84.02ND Trimester 10.2-58.83RD Trimester 46.5-160Progesterone is performed using the [employer] Access Immunoassay.Progesterone testing is performed using a different test methodology at [facility]. Direct result comparison should only be made within the same method. Performed By: #### 5 196-1 #### SHAI Pickard ([id number]) [facility] ([facility]) [address] [place] [address] Progesterone [Mass/Vol]on REF VALUES Male <0.2-0.8 Follicular Phase <0.2-1.5 Luteal Phase 7.4-15.4 Post Menopausal <0.2-0.2 1ST Trimester 12.0-84.0 2ND Trimester 10.2-58.8 3RD Trimester 46.5-160 Progesterone is performed using the [employer] Access Immunoassay. Progesterone testing is performed using a different test methodology at [facility]. Direct result comparison should only be made within the same method. [facility] KELSY US PELVIS LIMITED FOLLIC LES-FOLLICLE STUDIES PERFORMEDon 02-21-2024 KELSY US PELVIS LIMITED FOLLICLES-FOLLICLE STUDIES PERFORMED Follicle scan performed with follicle measurements in report. Normal [facility] Estradiolon 02-20-2024 E2 [Mass/Vol] 3718 pg/mL Normal [facility] Comment on above: Order Comment: REF V ALUESFOLLICULAR PHASE 20-144MID CYCLE 64-357LUTEAL PHASE 56-214POSTMENOPAUSE < 32PREPUBERTY < 20FEMALE 10-18Y 8-110MALE 10-18Y < 20ADULT MALE < 40Estradiol measurement is performed using the [employer] Access Estradiol Immunoassay. Estradiol testing is performed using a different test methodology at [facility]. Direct resultcomparison should only be made within the same method. Performed By: #### 5 196-1 #### SHAI Pickard ([id number]) [facility] ([facility]) [address] [place] [address] Progesteroneon 02-20-2024 Progesterone [Mass/Vol] 1.4 ng/mL Normal [facility] Comment on above: Order Comment: REF V ALUESMale <0.2-0.8Follicular Phase <0.2-1.5Luteal Phase 7.4-15.4Post Menopausal <0.2-0.21ST Trimester 12.0-84.02ND Trimester 10.2-58.83RD Trimester 46.5-160Progesterone is performed using the [employer] Access Immunoassay.Progesterone testing is performed using a different test methodology at [facility]. Direct result comparison should only be made within the same method. Performed By: #### 5 196-1 #### SHAI Pickard ([id number]) [facility] ([facility]) [address] [place] [address] KELSY US PELVIS LIMITED FOLLIC LES-FOLLICLE STUDIES PERFORMEDon 02-20-2024 KELSY US PELVIS LIMITED FOLLICLES-FOLLICLE STUDIES PERFORMED Follicle scan performed with follicle measurements in report. Normal [facility] E2 [Mass/Vol]on 02-18-2024 REF VALUES FOLLICULAR PHASE 20-144 MID CYCLE 64-357 LUTEAL PHASE 56-214 POSTMENOPAUSE < 32 PREPUBERTY < 20 FEMALE 10-18Y 8-110 MALE 10-18Y < 20 ADULT MALE < 40 Estradiol measurement is performed using the [employer] Access Estradiol Immunoassay. Estradiol testing is performed using a different test methodology at [facility]. Direct result comparison should only be made within the same method. [facility] Estradiolon 02-18-2024 E2 [Mass/Vol] 1472 pg/mL [facility] E2 [Mass/Vol] 1472 pg/mL Normal [facility] Comment on above: Order Comment: REF V ALUESFOLLICULAR PHASE 20-144MID CYCLE 64-357LUTEAL PHASE 56-214POSTMENOPAUSE < 32PREPUBERTY < 20FEMALE 10-18Y 8-110MALE 10-18Y < 20ADULT MALE < 40Estradiol measurement is performed using the [employer] Access Estradiol Immunoassay. Estradiol testing is performed using a different test methodology at [facility]. Direct resultcomparison should only be made within the same method. Performed By: #### 5 196-1 #### SHAI Pickard ([id number]) [facility] ([facility]) [address] [place] [address] Follicle Diameter USon 02-17 Follicle scan performed with follicle measurements in report. Trilaminar appearance to the endometrium is noted. Free fluid is noted in the right paraovarian space. Notably retroverted uterus. RIS SECTRA ONLY Radiology Study observation (narrative) [facility] Work Phone: Follicle Diameter USOrdered By: Leigh Ann Tuttle on 02-18-2024 [facility] Work Phone: KELSY US PELVIS LIMITED FOLLIC LES-FOLLICLE STUDIES PERFORMEDon 02-18-2024 KELSY US PELVIS LIMITED FOLLICLES-FOLLICLE STUDIES PERFORMED Follicle scan performed with follicle measurements in report. Trilaminar appearance to the endometrium is noted. Free fluid is noted in the right paraovarian space. Notably retroverted uterus. Normal [facility] E2 [Mass/Vol]on 02-16-2024 REF VALUES FOLLICULAR PHASE 20-144 MID CYCLE 64-357 LUTEAL PHASE 56-214 POSTMENOPAUSE < 32 PREPUBERTY < 20 FEMALE 10-18Y 8-110 MALE 10-18Y < 20 ADULT MALE < 40 Estradiol measurement is performed using the [employer] Access Estradiol Immunoassay. Estradiol testing is performed using a different test methodology at [facility]. Direct result comparison should only be made within the same method. [facility] Estradiolon 02-16-2024 E2 [Mass/Vol] 639 pg/mL [facility] E2 [Mass/Vol] 639 pg/mL Normal [facility] Comment on above: Order Comment: REF V ALUESFOLLICULAR PHASE 20-144MID CYCLE 64-357LUTEAL PHASE 56-214POSTMENOPAUSE < 32PREPUBERTY < 20FEMALE 10-18Y 8-110MALE 10-18Y < 20ADULT MALE < 40Estradiol measurement is performed using the [employer] Estradiol Immunoassay. Estradiol testing is performed using a different test methodology at [facility]. Direct resultcomparison should only be made within the same method. Performed By: #### 5 196-1 #### SHAI Pickard ([id number]) [facility] ([facility]) [address] [place] [address] KELSY US PELVIS LIMITED FOLLIC LES-FOLLICLE STUDIES PERFORMEDon 02-16-2024 KELSY US PELVIS LIMITED FOLLICLES-FOLLICLE STUDIES PERFORMED Follicle scan performed with follicle measurements in report. and Trilaminar appearance to the endometrium is noted. Normal [facility] E2 [Mass/Vol]on 02-09-2024 REF VALUES FOLLICULAR PHASE 20-144 MID CYCLE 64-357 LUTEAL PHASE 56-214 POSTMENOPAUSE < 32 PREPUBERTY < 20 FEMALE 10-18Y 8-110 MALE 10-18Y < 20 ADULT MALE < 40 Estradiol measurement is performed using the [employer] Estradiol Immunoassay. Estradiol testing is performed using a different test methodology at [facility] [facility]. Direct result comparison should only be made within the same method. [facility] Estradiolon 02-09-2024 E2 [Mass/Vol] pg/mL pg/mL [facility] E2 [Mass/Vol] pg/mL Normal [facility] Comment on above: Order Comment: REF V ALUESFOLLICULAR PHASE 20-144MID CYCLE 64-357LUTEAL PHASE 56-214POSTMENOPAUSE < 32PREPUBERTY < 20FEMALE 10-18Y 8-110MALE 10-18Y < 20ADULT MALE < 40Estradiol measurement is performed using the [employer] Access Estradiol Immunoassay. Estradiol testing is performed using a different test methodology at [facility] other [facility] [facility]. Direct resultcomparison should only be made within the same method. Performed By: #### 5 196-1 #### SHAI Pickard ([id number]) [facility] ([facility]) [address] [place] [address] Follicle Diameter USon 02-08 Follicle scan performed with follicle measurements in report. MFM Radiology Study observation (narrative) [facility] Work Phone: Follicle Diameter USOrdered By: Juan Chavarria on 02-09-2024 [facility] Work Phone: Hematocrit Auto (Bld) [Volum e fraction]on 02-09-2024 Hematocrit (Bld) [Volume fraction] 42.9 % 36.0 - 46.0 % [facility] Interpretation and review of laboratory results Normal [facility] Hematocrit (Bld) [Volume fraction] 42.9 % Normal 36.0-46.0 [facility] Comment on above: Performed By: #### 4 544-3 #### JOSEPH ESQUIVEL ([id number]) [facility] ([facility]) [address] [place] [address] [facility] US PELVIS LIMITED FOLLIC LES-FOLLICLE STUDIES PERFORMEDon 02-09-2024 [facility] US PELVIS LIMITED FOLLICLES-FOLLICLE STUDIES PERFORMED Follicle scan performed with follicle measurements in report. Normal [facility] HCG ( test) Ql (U)o n 01-28-2024 Interpretation and review of laboratory results Normal [facility] Work Phone: Preg Test, Ur Negative Negative [facility] Work Phone: [facility] Work Phone: No Panel Informationon 01-27 Leigh Ann Tuttle MD 01/28/2024 9:32 AM Polypectomy Date/Time: 01/28/2024 9:29 AM Performed by: Leigh Ann Tuttle MD Authorized by: Jaun Chavarria MD Consent: Consent obtained: Written Consent [...] Tolerated well, no immediate complications [facility] Work Phone: Surgical pathology studyon 0 01-28-2024 Surgical pathology study Pathology report.total SEE COMMENT Surgical Pathology Case: [id number] Authorizing Provider: Leigh Ann Tuttle MD Collected: 01/28/2024 1027 Ordering Location: [facility] Received: 01/28/2024 1027 [employer] Pathologist: Yamila Leo MD Specimen: ENDOMETRIUM POLYPECTOMY [...] is entirely submitted in 1 cassette. JEK/SBS [facility] IGP,APTIMA HPV,AGE GDLNon AGE GDLN ACOG TESTING Note . [facility] Comment on above: TESTS RESULT FLAG U NITS REF RANGE LAB Clinician Provided Cytology Information Source.............Cervix;Endocervix No. of containers..01 ThinPrep Vial Age Rileyo CECILIAOG Telma... FLAG LEGEND: L-Low Normal,H-High Normal,LL-Alert Low,HH-Alert High <-Panic Low,>-Panic High,A-Abnormal,AA-Critical Abnormal Performed at: 01 =G [address] [address] Nidhi Fay MD, IGP, RFX APTIMA HPV ASCU Note . [facility] Comment on above: TESTS RESULT FLAG UN ITS REF RANGE LAB DIAGNOSIS: 02 NEGATIVE FOR INTRAEPITHELIAL LESION OR MALIGNANCY. Specimen adequacy: 02 Satisfactory for evaluation. Endocervical and/or squamous metaplastic cells (endocervical component) are present. Performed by: Gaby Masters Fund Manager ([facility]) . 02 Note: Note 02 [...] High,A-Abnormal,AA-Critical Abnormal Performed at: 02 [facility] [address] [address] Nidhi Fay MD, Performed at: =G - [facility] [address] [id number] Billing Manager: Nidhi Fay MD, Phone: [phone] Performed at: - [facility] [id number] Billing Manager: Nidhi Fay MD, Phone: [phone] [facility]SPATULA C[facility]IX [facility] Blood type and Indirect anti body screen panel (Bld)on 2023 ABO group Nom (Bld) O [facility] Blood group antibody screen Ql Negative [facility] D Ag Ql (Bld) Positive [facility] ABO group Nom (Bld) O Normal [facility] Comment on above: Performed By: #### 3 4532-2 #### JOSEPH ESQUIVEL ([id number]) [facility] ([facility]) [address] [place] [address] [place] Blood group antibody screen Ql Negative Normal [facility] Comment on above: Performed By: #### 3 4532-2 #### JOSEPH ESQUIVEL ([id number]) [facility] ([facility]) [address] [place] [address] US D Ag Ql (Bld) Positive Normal [facility] Comment on above: Performed By: #### 3 4532-2 #### JOSEPH ESQUIVEL ([id number]) [facility] ([facility]) [address] [place] [address] US C. trachomatis and N. gonorr hoeae DNA EDELMIRA+probe Nom (Unsp spec)on 2023 C. trachomatis rRNA EDELMIRA+probe Ql (Unsp spec) Negative Normal Negative [facility] Comment on above: Order Comment: The [...] By: #### 3 6903-3 #### SHAI Pickard ([id number]) [facility] ([facility]) [address] [place] [address] N. gonorrhoeae DNA Probe+sig amp Ql (Unsp spec) Negative Normal Negative [facility] Comment on above: Order Comment: The [...] By: #### 3 6903-3 #### SHAI Pickard ([id number]) [facility] ([facility]) [address] [place] [address] HIV 1+2 Ab+HIV1 p24 Agon HIV 1+2 Ab+HIV1 p24 Ag IA Ql Non-Reactive Normal Nonreactive [facility] Comment on above: Order Comment: HIV A g/Ab screen is performed using the [employer] HIV Ag/Ab Combo assay which detects the presence of HIV p24 antigen as well as antibodies to HIV-1 (Group M and O) and HIV-2. No laboratory evidence of HIV infection. If acute HIV infection is suspected, consider testing for HIV RNA by PCR (viral load). Performed By: #### 5 6888-1 #### SHAI Pickard ([id number]) [facility] ([facility]) [address] [place], [place] [address] Hepatitis B virus surface Ag on 2023 HBV surface Ag IA Ql Non-Reactive Normal Nonreactive [facility] Comment on above: Result Comment: Biot in interference may cause falsely decreased results. Patients taking a Biotin dose of up to 5 mg/day should refrain from taking Biotin for 24 hours before sample collection. Providers may contact their local laboratory for further information. Performed By: #### 5 196-1 #### SHAI Pickard ([id number]) [facility] ([facility]) [address] [place], [place] [address] Hepatitis C virus Abon 12-10 HCV Ab Ql (S) Non-Reactive Normal Nonreactive [facility] Comment on above: Result Comment: Resu lts from patients taking biotin supplements or receiving high-dose biotin therapy should be interpreted with caution due to possible interference with this test. Providers may contact their local laboratory for further information. Performed By: #### 1 6128-1 #### SHAI Pickard ([id number]) [facility] ([facility]) [address] [place], [place] [address] Rubella virus IgG IA Qnon Rubella virus IgG IA Ql Positive Normal Negative [facility] Comment on above: Order [...] By: #### 5 334-8 #### SHAI Pickard ([id number]) [facility] ([facility]) [address] [place] [address] Rubella virus IgG Qn (S) 1.2 IA Normal <=0.7 IA [facility] Comment on above: Order Comment: NEGAT [...] By: #### 5 334-8 #### SHAI Pickard ([id number]) [facility] ([facility]) [address] [place] [address] Treponema pallidum Ab.IgG+Ig Mon 2023 T. pallidum IgG+IgM IA Ql (S) Non-Reactive Normal Nonreactive [facility] Comment on above: Result Comment: No s ignificant level of Treponema pallidum antibody detected. Repeat testing in 2 to 4 weeks may be considered if early infection or incubating syphilis infection is suspected. Performed By: #### 4 7236-5 #### SHAI Pickard ([id number]) [facility] ([facility]) [address] [place] [address] VZV IgG IA Ql (S)on 12-11-19 24 VARICELLA ZOSTER IGG INDEX 5.6 IA High <=0.8 [facility] Comment on above: Order Comment: NEGAT [...] By: #### 1 5410-4 #### SHAI Pickard ([id number]) [facility] ([facility]) [address] [place], [place] [address] Varicella zoster virus Ab.Ig Biju 2023 VZV IgG IA Ql (S) Positive Abnormal Negative [facility] Comment on above: Order Comment: NEGAT [...] By: #### 1 5410-4 #### SHAI Pickard ([id number]) [facility] ([facility]) [address] [place] [address] Ambulatory Visit Summaryon 0 10-02-2023 Ambulatory Visit [...] knee anterior cruciate ligament allograft reconstruction with hykv-abvgyn-phga, debridment medial meniscus tear, patellofemoral chondroplasty-Grade I-II (07/28/2013), Tonsillectomy, tubes in the ears. 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 She has been taking wvqh-ehq-fhebkcv magnesium at night since initiating Topamax. Weight management. The patient expresses a desire to lose weight and re-initiate her Adipex. She has previously tried Aryan jedb-ucm-udhpfsf but found it ineffective. She does not [...] arms or hands, as well as any network director strength weakness. She is agreeable trying vitamin [...] with me in (more content not included)... [facility] Comment on above: Result Comment: Elec tronically Signed By: Princess Dumont\.br\Date and Time Signed: 10/02/23 16:44 EDT\.br\Electronically Co-Signed By: Raj Chu\.br\Date and Time Co-Signed: 10/02/23 15:48 EDT Lab Reportson 10-02-2023 Lab Reports [id number] 02#1.00TIFF [facility] Patient Educationon 10-02-19 Patient Education [...] numbers. This can be done either in [place] ([place] or metric measurements. Note that charts and online BMI calculators are available to help you find your BMI quickly and easily without having to do these calculations yourself. To calculate your BMI in [place] ([place] measurements: 1. Measure your weight in [...] for Disease Control and Prevention: www.cdc.gov ? [place] Heart Association: www.heart.org ? National Heart, Lung, and Blood [place]: www.nhlbi.nih.gov Summary ? Body mass index (BMI) is a number that is calculated from a person's weight and height. ? BMI may help estimate how much of a person's weight is composed of fat. BMI can help identify those who may be at higher risk for certain medical problems. ? BMI can be measured using Trinidadian measurements or metric measurements. ? BMI charts are used to identify whether you are underweight, normal weight, overweight, or obese. This information is not intended to replace advice given to you by your health care provider. Make sure you discuss any questions you have with your health care provider. Document Revised: 01/11/2020 Document Reviewed: 11/18/2019 [employer] Patient Education ? 2022 [employer] 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 The patient was overweight with an elevated BMI. Her laboratories I ordered were not performed, and she did not do the x-ray that I ordered either. She presents for headaches again. Cervicalgia and persistent headaches. The patient underwent cervical x-ray in 02/20/2023 in [place], the day after her last visit on [...] in 06/2023 or 07/2023 and done at [place]. She is uncertain if cholesterol levels were checked. Her bowel movements and urination are normal. She and her switched clinics where she is the patient for an IVF and are waiting for an appointment within the next 2 months. 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 Ibuprofen every 6 to 8 hours. Tylenol [...] numbers. This can be done either in [place] ([place].S[place] or metric measurements. Note that charts and online BMI calculators are available to help you find your BMI quickly and easily without having to do these calculations yourself. To calculate your BMI in [place] ([place] measurements: 1. Measure your weight in [...] for Disease Control and Prevention: www.cdc.gov ? [place] Heart Association: www.heart.org ? National Heart, Lung, and Blood [place]: www.nhlbi.nih.gov Summary ? Body mass index (BMI) is a number that is calculated from a person's weight and height. ? BMI may help estimate how much of a person's weight is composed of fat. BMI can help identify those who may be at higher risk for certain medical problems. ? BMI can be measured using Trinidadian measurements or metric measurements. ? BMI charts are used to identify whether you are underweight, normal weight, overweight, or obese. This information is not intended to replace advice given to you by your health care provider. Make sure you discuss any questions you have with your health care provider. Document Revised: 01/11/2020 Document Reviewed: 11/18/2019 [employer] Patient Education ? 2022 [employer]. Endocrinology Carbohydrate Counting for Diabetes Mellitus, Adult [...] Dehydroepiandrosterone (DHEA) 429 ng/dL Normal 31-701 [facility] Comment on above: Performed By: #### D GEORGIEA. #### [facility] [address] [address] [address] Meghna Alas ANTI-MULLERIAN HORMONEon Anti-Mullerian Hormone (AMH) 2.01 ng/mL Normal [facility] Comment on above: Result Comment: For assays employing antibodies, the possibility exists for interference by heterophile antibodies in the samples.1 1.Ramon Calderon Interferences in Immunoassays - still a threat. Clin. Chem. 2000; 46: 4501-1371. This test was developed and its performance characteristics determined by [employer]. It has not been cleared or approved by the Food and Drug Administration. Reference Range: Females 20 - 25y: 1.23 - 11.51 Median 4.70 AMH concentrations of >= 1.06 ng/mL is correlated with a better response to ovarian stimulation, produced more retrievable oocytes and higher odds of live according to Lindseyer et al. Fertility and Sterility. 2010: 94:8872-8191. The current AMH test method correlates with [...] tumor. Performed By: #### Abdi GARCIA #### [facility] [address] [place] [address] Dr. Meghna Alas PAP ACOG PANEL 2: 21 to 29on 07-29-2022 . . Normal [facility] Comment on above: Performed By: #### 4 [id number] ####[facility] [address] [address]Dr. Meghna Alas Age Gdln ACOG Testing - Normal [facility] Comment on above: Performed By: #### 4 [id number] ####[facility] [address] [id number]. Meghna Alas DIAGNOSIS: Comment [facility] Comment on above: Result Comment: NEGA TIVE FOR INTRAEPITHELIAL LESION OR MALIGNANCY. Performed By: #### 4 [id number] ####[facility] [address] [address]Dr. Meghna Alas Methodology: Comment Normal [facility] Comment on above: Result Comment: This liquid based ThinPrep(R) pap test was screened with the use of an image guided system. Performed By: #### 4 [id number] ####[facility] [address] [place], [place] [address]DrBetito Alas Note: Comment Normal [facility] Comment on above: Result Comment: The Pap smear is a screening test designed to aid in the detection of premalignant and malignant conditions of the uterine cervix. It is not a diagnostic procedure and should not be used as the sole means of detecting cervical cancer. Both false-positive and false-negative reports do occur. . Performed By: #### 4 [id number] ####[facility] [address] [place], [place] [address]DrBetito Alas Performed by: Comment Normal [facility] Comment on above: Result Comment: Antonella Villarreal, Supervisory Fund Manager (ASCP) Performed By: #### 4 806914 ####[facility] [address] [place], [place] [address]DrBetito Alas Reflex Criteria: Comment Normal [facility] Comment on above: Result Comment: The HPV DNA reflex criteria were not met with this specimen result therefore, no HPV testing was performed. . Performed By: #### 4 [id number] ####[facility] [address] [place], [place] [address]DrBetito Alas Specimen adequacy: Comment Normal [facility] Comment on above: Result Comment: Sati sfactory for evaluation. Endocervical and/or squamous metaplastic cells (endocervical component) are present. Performed By: #### 4 [id number] ####[facility] [address] [place], [place] [address]Dr. Meghna Alas DHEA-SULFATEon 07-27-2022 DHEA-Sulfate 195.0 ug/dL Normal 110.0-431.7 [facility] Comment on above: Performed By: #### D RADHA #### [facility] [address] [address] [address] Meghna Alas FSHon 07-27-2022 FSH 11.4 mIU/mL Normal [facility] Comment on above: Result Comment: Adul t Female: Follicular phase 3.5 - 12.5 Ovulation phase 4.7 - 21.5 Luteal phase 1.7 - 7.7 Postmenopausal 25.8 - 134.8 Performed By: #### L [facility] #### [facility] [address] [address] [address] Meghna Alas LUTEINIZING HORMONE (LH)on 0 07-27-2022 LH 61.8 mIU/mL Normal [facility] Comment on above: Result Comment: Adul t Female: Follicular phase 2.4 - 12.6 Ovulation phase 14.0 - 95.6 Luteal phase 1.0 - 11.4 Postmenopausal 7.7 - 58.5 Performed By: #### L [facility] #### [facility] [address] [place], [place] [id number] Dr. Meghna Alas US PELVIS AND TRANSVAGon [...] RACQUEL UNLU Date: 2022-07-27 08:10 Normal [facility] CBC AUTO DIFFon 07-26-2022 BASO # 0.1 103/ul Normal 0.0-0.1 [facility] Comment on above: Performed By: #### C BC #### [facility] [address] [address] [address] Meghna Alas Basophils/100 WBC (Bld) 0.8 % Normal 0.2-2.0 [facility] Comment on above: Performed By: #### C BC #### [facility] [address] [address] [address] Meghna Alas EO # 0.2 103/ul Normal 0.0-0.7 [facility] Comment on above: Performed By: #### C BC #### [facility] [address] [place] [address] Dr. Meghna Alas Eosinophils/100 WBC (Bld) 3.7 % Normal 0.9-7.0 [facility] Comment on above: Performed By: #### C BC #### [facility] [address] [place] [address] Dr. Meghna Alas Erythrocyte distribution width (RBC) [Ratio] 11.7 % Normal 11.0-15.0 [facility] Comment on above: Performed By: #### C BC #### [facility] [address] [place] [address] Dr. Meghna Alas Hematocrit (Bld) [Volume fraction] 43.6 % Normal 36.0-48.0 [facility] Comment on above: Performed By: #### C BC #### [facility] [address] [place] [address] Dr. Meghna Alas Hemoglobin (Bld) [Mass/Vol] 14.9 g/dL Normal 12.0-16.0 [facility] Comment on above: Performed By: #### C BC #### [facility] [address] [place] [address] Dr. Meghna Alas IG # 0.02 10e3/ul Normal 0.00-0.03 [facility] Comment on above: Performed By: #### C BC #### [facility] [address] [place] [address] Dr. Meghna Alas IG % 0.3 % Normal 0.0-0.5 [facility] Comment on above: Performed By: #### C BC #### [facility] [address] [place] [address] Dr. Meghna Alas LYMPH # 1.7 103/ul Normal 1.2-3.8 [facility] Comment on above: Performed By: #### C BC #### [facility] [address] [place] [address] Dr. Meghna Alas Lymphocytes/100 WBC (Bld) 27.7 % Normal 20.5-60.0 [facility] Comment on above: Performed By: #### C BC #### [facility] [address] [place] [address] Dr. Meghna Alas MANUAL DIFF REQ NO Normal [facility] Comment on above: Performed By: #### C BC #### [facility] [address] [place] [address] Dr. Meghna Alas MCH (RBC) [Entitic mass] 30.7 pg Normal 26.7-34.0 [facility] Comment on above: Performed By: #### C BC #### [facility] [address] [place] [address] Dr. Meghna Alas MCHC (RBC) [Mass/Vol] 34.2 g/dL Normal 29.9-35.2 [facility] Comment on above: Performed By: #### C BC #### [facility] [address] [place] [address] Dr. Meghna Alas MCV (RBC) [Entitic vol] 89.7 fL Normal 81.0-99.0 [facility] Comment on above: Performed By: #### C BC #### [facility] [address] [place] [address] Dr. Meghna Alas MONO # 0.4 103/ul Normal 0.3-0.8 [facility] Comment on above: Performed By: #### C BC #### [facility] [address] [place] [address] Dr. Meghna Alas Monocytes/100 WBC (Bld) 7.1 % Normal 1.7-12.0 [facility] Comment on above: Performed By: #### C BC #### [facility] [address] [place] [address] Dr. Meghna Alas NEUT # 3.7 103/ul Normal 1.4-6.5 [facility] Comment on above: Performed By: #### C BC #### [facility] [address] [place] [address] Dr. Meghna Alas Neutrophils/100 WBC (Bld) 60.4 % Normal 43.0-75.0 [facility] Comment on above: Performed By: #### C BC #### [facility] [address] [place] [address] Dr. Meghna Alas Platelet mean volume (Bld) [Entitic vol] 11.3 fL Normal 9.5-13.5 [facility] Comment on above: Performed By: #### C BC #### [facility] [address] [place] [address] Dr. Meghna Alas PLT 154 103/ul Normal 150-450 [facility] Comment on above: Performed By: #### C BC #### [facility] [address] [place] [address] Dr. Meghna Alas RBC 4.86 106/ul Normal 4.20-5.40 [facility] Comment on above: Performed By: #### C BC #### [facility] [address] [place] [address] Dr. Meghna Alas WBC 6.2 103/ul Normal 4.0-11.0 [facility] Comment on above: Performed By: #### C BC #### [facility] [address] [place] [address] Dr. Meghna Alas FREE T4on 07-26-2022 Free T4 [Mass/Vol] 1.04 ng/dL Normal 0.76-1.46 [facility] Comment on above: Performed By: #### F T4 #### [facility] [address] [place] [address] Dr. Meghna Alas GLYCOHEMOGLOBIN A1Con 2022 ADA RECOMMENDATION SEE BELOW Normal [facility] Comment on above: Result Comment: ADA RECOMMENDED LIMIT 4.0 - 6.0 ADA THERAPEUTIC TARGET < 7.0 ACTION SUGGESTED > 7.0 Performed By: #### A 1C #### [facility] [address] [address] [address] Meghna Alas Glucose [Mass/Vol] 82 mg/dL Normal [facility] Comment on above: Performed By: #### A 1C #### [facility] [facility] [address] [address] [address] Meghna Alas HbA1c (Bld) [Mass fraction] 4.5 % Normal 4.5-6.2 [facility] Comment on above: Performed By: #### A 1C #### [facility] [address] [address] [address] Meghna Alas TSHon 07-26-2022 TSH 1.522 uIU/mL Normal 0.358-3.740 [facility] Comment on above: Performed By: #### T SH #### [facility] [address] [address] [address] Meghna Alas Vital Signs Date Time Vital Sign Value Performing Clinician Facility 02-07-2025 13:41-0400 Body mass index (BMI) [Ratio] 41.88 kg/m2 Yomaira Guerrero [employer] Work Phone: [facility] 02-07-2025 13:41-0400 Body weight 107.23 kg Yomaira Guerrero [employer] Work Phone: [facility] 02-07-2025 13:41-0400 Diastolic blood pressure 82 mm[Hg] Yomaira Guerrero [employer] Work Phone: [facility] 02-07-2025 13:41-0400 Systolic blood pressure 128 mm[Hg] Yomaira Cesar [employer] Work Phone: [facility] 01-31-2025 14:07-0400 Body mass index (BMI) [Ratio] 40.57 kg/m2 Yomaira Guerrero [employer] Work Phone: [facility] 01-31-2025 14:07-0400 Body weight 103.87 kg Yomaira Guerrero [employer] Work Phone: [facility] 01-31-2025 14:07-0400 Diastolic blood pressure 76 mm[Hg] Yomaira Cesar [employer] Work Phone: [facility] 01-31-2025 14:07-0400 Systolic blood pressure 122 mm[Hg] Yomaira Cesar [employer] Work Phone: [facility] 01-16-2025 15:13-0400 Body mass index (BMI) [Ratio] 40.21 kg/m2 Layo Sherwin DO Work Phone: [facility] 01-16-2025 15:13-0400 Body weight 102.97 kg Layo Sherwin DO Work Phone: [facility] 01-16-2025 15:13-0400 Diastolic blood pressure 70 mm[Hg] Layo Sherwin DO Work Phone: [facility] 01-16-2025 15:13-0400 Systolic blood pressure 110 mm[Hg] Layo Sherwin DO Work Phone: [facility] 01-03-2025 10:15-0400 Body mass index (BMI) [Ratio] 39.47 kg/m2 Layo Sherwin DO Work Phone: [facility] 01-03-2025 10:15-0400 Body weight 101.06 kg Layo Sherwin DO Work Phone: [facility] 01-03-2025 10:15-0400 Diastolic blood pressure 74 mm[Hg] Layo Sherwin DO Work Phone: [facility] 01-03-2025 10:15-0400 Systolic blood pressure 118 mm[Hg] Layo Sherwin DO Work Phone: [facility] 12-19-2024 10:06-0400 Body mass index (BMI) [Ratio] 38.76 kg/m2 Layo Sherwin DO Work Phone: [facility] 12-19-2024 10:06-0400 Body weight 99.25 kg Layo Sherwin DO Work Phone: [facility] 12-19-2024 10:06-0400 Diastolic blood pressure 70 mm[Hg] Layo Sherwin DO Work Phone: [facility] 12-19-2024 10:06-0400 Systolic blood pressure 116 mm[Hg] Layo Sherwin DO Work Phone: [facility] 12-06-2024 08:33-0400 Body mass index (BMI) [Ratio] 38.09 kg/m2 Layo Sherwin DO Work Phone: [facility] 12-06-2024 08:33-0400 Body weight 97.52 kg Layo Sherwin DO Work Phone: [facility] 12-06-2024 08:33-0400 Diastolic blood pressure 70 mm[Hg] Layo Sherwin DO Work Phone: [facility] 12-06-2024 08:33-0400 Systolic blood pressure 100 mm[Hg] Layo Sherwin DO Work Phone: [facility] 11-08-2024 14:59-0400 Body mass index (BMI) [Ratio] 35.59 kg/m2 Layo Sherwin DO Work Phone: [facility] 11-08-2024 14:59-0400 Body weight 91.13 kg Layo Sherwin DO Work Phone: [facility] 11-08-2024 14:59-0400 Diastolic blood pressure 80 mm[Hg] Layo Sherwin DO Work Phone: [facility] 11-08-2024 14:59-0400 Systolic blood pressure 122 mm[Hg] Layo Sherwin DO Work Phone: [facility] 10-17-2024 13:08-0400 Body mass index (BMI) [Ratio] 35.52 kg/m2 Layo Sherwin DO Work Phone: [facility] 10-17-2024 13:08-0400 Body weight 90.95 kg Layo Sherwin DO Work Phone: [facility] 10-17-2024 13:08-0400 Diastolic blood pressure 82 mm[Hg] Layo Sherwin DO Work Phone: [facility] 10-17-2024 13:08-0400 Systolic blood pressure 126 mm[Hg] Layo Sherwin DO Work Phone: [facility] 10-11-2024 14:41-0400 Body mass index (BMI) [Ratio] 35.22 kg/m2 Layo Sherwin DO Work Phone: [facility] 10-11-2024 14:41-0400 Body weight 90.17 kg Layo Sherwin DO Work Phone: [facility] 10-11-2024 14:41-0400 Diastolic blood pressure 74 mm[Hg] Layo Sherwin DO Work Phone: [facility] 10-11-2024 14:41-0400 Systolic blood pressure 112 mm[Hg] Layo Sherwin DO Work Phone: [facility] 09-06-2024 15:31-0400 Body mass index (BMI) [Ratio] 33.17 kg/m2 Brandy Sissy PA Work Phone: [facility] 09-06-2024 15:31-0400 Body weight 84.94 kg Brandy Sissy PA Work Phone: [facility] 09-06-2024 15:31-0400 Diastolic blood pressure 82 mm[Hg] Brandy Isssy PA Work Phone: [facility] 09-06-2024 15:31-0400 Systolic blood pressure 110 mm[Hg] Brandy [place]yst[place] PA Work Phone: [facility] 08-08-2024 13:08-0400 Body mass index (BMI) [Ratio] 32.2 kg/m2 Layo Sherwin DO Work Phone: [facility] 08-08-2024 13:08-0400 Body weight 82.46 kg Layo Sherwin DO Work Phone: [facility] 08-08-2024 13:08-0400 Diastolic blood pressure 64 mm[Hg] Layo Sherwin DO Work Phone: [facility] 08-08-2024 13:08-0400 Systolic blood pressure 100 mm[Hg] Layo Sherwin DO Work Phone: [facility] 07-29-2024 09:53-0400 Body mass index (BMI) [Ratio] 31.18 kg/m2 [facility] Nurse [facility] 07-29-2024 09:53-0400 Body weight 79.83 kg [facility] Nurse [facility] 07-29-2024 09:53-0400 Diastolic blood pressure 72 mm[Hg] [facility] Nurse [facility] 07-29-2024 09:53-0400 Systolic blood pressure 118 mm[Hg] [facility] Nurse [facility] 04-06-2024 14:04-0500 Blood Pressure Location Mallory Jauregui [facility] 04-06-2024 14:04-0500 Diastolic blood pressure 74 mm[Hg] Mallory Juventino [facility] 04-06-2024 14:04-0500 Heart rate 80 /min Mallory Sethicross [facility] 04-06-2024 14:04-0500 SaO2% (BldA) [Mass fraction] 100 % Mallory Jauregui [facility] 04-06-2024 14:04-0500 Systolic blood pressure 108 mm[Hg] Malloryly SethiJuventino [facility] 03-22-2024 10:45-0500 Diastolic blood pressure 62 mm[Hg] Juan Chavarria MD Work Phone: [facility] 03-22-2024 10:45-0500 Heart rate 65 /min Juan Chavarria MD Work Phone: [facility] 03-22-2024 10:45-0500 Respiratory rate 17 /min Juan Chavarria MD Work Phone: [facility] 03-22-2024 10:45-0500 SaO2% (BldA) [Mass fraction] 100 % Juan Chavarria MD Work Phone: [facility] 03-22-2024 10:45-0500 Systolic blood pressure 94 mm[Hg] Juan Chavarria MD Work Phone: [facility] 03-22-2024 09:45-0500 Body temperature 97.3 [degF] Juan Chavarria MD Work Phone: 5(074)429-283531 [place] [address] 03-22-2024 08:29-0500 Body height 160 cm Juan Chavarria MD Work Phone: 4(591)773-029217 [place] [address] 03-22-2024 08:29-0500 Body mass index (BMI) [Ratio] 29.25 kg/m2 Juan Chavarria MD Work Phone: [facility] 03-22-2024 08:29-0500 Body weight 74.9 kg Juan Chavarria MD Work Phone: 9(916)291-478706 [address] 02-23-2024 09:49-0400 Body temperature 97.7 [degF] Juan Chavarria MD Work Phone: 7(717)615-562906 [address] 02-23-2024 09:49-0400 Diastolic blood pressure 65 mm[Hg] Juan Chavarria MD Work Phone: 6(788)[phone] [address] 02-23-2024 09:49-0400 Heart rate 94 /min Juan Chavarria MD Work Phone: 5(426)208-712831 [place] [address] 02-23-2024 09:49-0400 Respiratory rate 22 /min Juan Chavarria MD Work Phone: [facility] 02-23-2024 09:49-0400 SaO2% (BldA) [Mass fraction] 100 % Juan Chavarria MD Work Phone: [facility] 02-23-2024 09:49-0400 Systolic blood pressure 102 mm[Hg] Juan Chavarria MD Work Phone: 8(834)[phone] [place] [address] 02-23-2024 07:27-0400 Body height 160 cm Juan Chavarria MD Work Phone: [facility] 02-23-2024 07:27-0400 Body mass index (BMI) [Ratio] 29.41 kg/m2 Juan Chavarria MD Work Phone: [facility] 02-23-2024 07:27-0400 Body weight 75.3 kg Juan Chavarria MD Work Phone: [facility] 01-28-2024 10:31-0400 Diastolic blood pressure 59 mm[Hg] Leigh Ann Tuttle MD Work Phone: [facility] 01-28-2024 10:31-0400 Heart rate 71 /min Leigh Ann Tuttle MD Work Phone: [facility] 01-28-2024 10:31-0400 Respiratory rate 20 /min Leigh Ann Tuttle MD Work Phone: [facility] 01-28-2024 10:31-0400 SaO2% (BldA) [Mass fraction] 100 % Leigh Ann Tuttle MD Work Phone: [facility] 01-28-2024 10:31-0400 Systolic blood pressure 101 mm[Hg] Leigh Ann Tuttle MD Work Phone: [facility] 01-28-2024 09:31-0400 Body temperature 98.1 [degF] Leigh Ann Tuttle MD Work Phone: [facility] 01-28-2024 08:48-0400 Body height 160 cm Leigh Ann Tuttle MD Work Phone: [facility] 01-28-2024 08:48-0400 Body mass index (BMI) [Ratio] 29.21 kg/m2 Leigh Ann Tuttle MD Work Phone: [facility] 01-28-2024 08:48-0400 Body weight 74.8 kg Leigh Ann Tuttle MD Work Phone: [facility] 01-14-2024 10:52-0400 Body mass index (BMI) [Ratio] 29.43 kg/m2 Brandy Sheehan PA Work Phone: [facility] 01-14-2024 10:52-0400 Body weight 75.35 kg Brandy Oyst[place] PA Work Phone: [facility] 01-14-2024 10:52-0400 Diastolic blood pressure 70 mm[Hg] Brandy [place] PA Work Phone: [facility] 01-14-2024 10:52-0400 Systolic blood pressure 120 mm[Hg] Brandy Higginsey PA Work Phone: [facility] 12-28-2023 10:09-0400 Body height 160 cm Juan Chavarria MD Work Phone: [facility] 12-28-2023 10:09-0400 Body mass index (BMI) [Ratio] 30.11 kg/m2 Juan Chavarria MD Work Phone: [facility] 12-28-2023 10:09-0400 Body weight 77.11 kg Juan Chavarria MD Work Phone: [facility] 12-28-2023 10:09-0400 Diastolic blood pressure 81 mm[Hg] Juan Chavarria MD Work Phone: [facility] 12-28-2023 10:09-0400 Heart rate 62 /min Juan Chavarria MD Work Phone: [facility] 12-28-2023 10:09-0400 Systolic blood pressure 119 mm[Hg] Juan Chavarria MD Work Phone: [facility] 2023 08:46-0400 Body height 160 cm Trish Thorpe [employer] Work Phone: [facility] 2023 08:46-0400 Body mass index (BMI) [Ratio] 29.23 kg/m2 Trish Thorpe [employer] Work Phone: [facility] 2023 08:46-0400 Body weight 74.84 kg Trish Thorpe [employer] Work Phone: [facility] 2023 08:46-0400 Diastolic blood pressure 67 mm[Hg] Trish Thorpe [employer] Work Phone: [facility] 2023 08:46-0400 Heart rate 72 /min Trish Thorpe [employer] Work Phone: [facility] 2023 08:46-0400 Systolic blood pressure 122 mm[Hg] Trish Thorpe [employer] Work Phone: [facility] 10-02-2023 11:14-0400 Blood Pressure Location Princess Rapp [facility] 10-02-2023 11:14-0400 Body temperature 98.24 [degF] Princess Rapp [facility] 10-02-2023 11:14-0400 Diastolic blood pressure 66 mm[Hg] Princess Rapp [facility] 10-02-2023 11:14-0400 Heart rate 65 /min Princess Rapp [facility] 10-02-2023 11:14-0400 SaO2% (BldA) [Mass fraction] 98 % Princess Rapp [facility] 10-02-2023 11:14-0400 Systolic blood pressure 118 mm[Hg] Princess Rapp [facility] 08-27-2023 17:44-0400 Blood Pressure Location Princess Rapp [facility] 08-27-2023 17:44-0400 Body temperature 98.06 [degF] Princess Rapp [facility] 08-27-2023 17:44-0400 Diastolic blood pressure 76 mm[Hg] Princess Rapp [facility] 08-27-2023 17:44-0400 Heart rate 85 /min Princess Rapp [facility] 08-27-2023 17:44-0400 Respiratory rate 14 /min Princess Rapp [facility] 08-27-2023 17:44-0400 SaO2% (BldA) [Mass fraction] 99 % Princess Rapp [facility] 08-27-2023 17:44-0400 Systolic blood pressure 110 mm[Hg] Princess Rapp [facility] 02-19-2023 07:41-0400 Body temperature 97.7 [degF] Princess Rapp [facility] 02-19-2023 07:41-0400 Diastolic blood pressure 70 mm[Hg] Princess Rapp [facility] 02-19-2023 07:41-0400 Heart rate 81 /min Princess Rapp [facility] 02-19-2023 07:41-0400 SaO2% (BldA) [Mass fraction] 99 % Princess Rapp [facility] 02-19-2023 07:41-0400 Systolic blood pressure 110 mm[Hg] Princess Rapp [facility] 07-24-2021 16:57-0400 Blood Pressure Location Leigh Ann [facility] 07-24-2021 16:57-0400 Body temperature 97.7 [degF] Leigh Ann [facility] 07-24-2021 16:57-0400 Diastolic blood pressure 68 mm[Hg] Leigh Ann [facility] 07-24-2021 16:57-0400 Heart rate 88 /min Leigh Ann [facility] 07-24-2021 16:57-0400 SaO2% (BldA) [Mass fraction] 99 % Leigh Ann [facility] 07-24-2021 16:57-0400 Systolic blood pressure 122 mm[Hg] Leigh Ann [facility] Encounters Encounter Date Encounter Type Care Provider Facility Start: 02-07-2025 End: 02-07-2025 Bamboo flowsheet Yomaira Guerrero NP Work Phone: [facility] Start: 02-07-2025 End: 02-07-2025 Bamboo flowsheet Yomaira Guerrero [employer] Work Phone: [facility] Start: 02-07-2025 End: 02-07-2025 Clinisync Result Encounter Layo Courtney DO Work Phone: [facility] External Department Unsolicited Start: 02-07-2025 End: 02-07-2025 flow sheet Yomaira Guerrero NP Work Phone: [facility] Comment on above: Third trimester preg rehan ([facility]); 36 weeks gestation of ([facility]) Start: 02-07-2025 End: 02-07-2025 ambulatory YOMAIRA GUERRERO Not Available Start: 02-01-2025 End: 02-01-2025 Clinisync Result Encounter Layo Sherwin DO Work Phone: [facility] Unsolicited Start: 02-01-2025 End: 02-01-2025 Clinisync Result Encounter Layo Sherwin DO Work Phone: [facility] Unsolicited Start: 01-31-2025 End: 01-31-2025 Bamboo flowsheet Yomaira Guerrero [employer] Work Phone: [facility] Start: 01-31-2025 End: 01-31-2025 Bamboo flowsheet Yomaira Cesar [employer] Work Phone: [facility] Start: 01-31-2025 End: 01-31-2025 ambulatory YOMAIRA GUERRERO Not Available Start: 01-31-2025 End: 01-31-2025 flow sheet Yomaira Guerrero [employer] Work Phone: [facility] Comment on above: Third trimester preg rehan ([facility]); 35 weeks gestation of ([facility]); Encounter for in vitro fertilization Start: 01-25-2025 [...] sheet Layo Sherwin DO Work Phone: [facility] Comment on above: 33 weeks gestation o f ([facility]); Third trimester ([facility]); Group B streptococcal infection; resulting from in vitro fertilization in first trimester ([facility]) Start: 01-16-2025 End: 01-16-2025 ambulatory LAYO [...] flowsheet Layo Sherwin DO Work Phone: [facility] Start: 01-03-2025 End: 01-03-2025 Bamboo flowsheet Layo Sherwin DO Work Phone: [facility] Start: 01-03-2025 End: 01-03-2025 flow sheet Layo Sherwin DO Work Phone: [facility] Comment on above: Third trimester preg rehan ([facility]); 31 weeks gestation of ([facility]); resulting [...] Start: 12-06-2024 End: 12-06-2024 Clinisync Result Encounter Lyao Sherwin DO Work Phone: [facility] External Department [...] flow sheet Layo Sherwin DO Work Phone: [facility] Comment on above: Acute bilateral low back pain without sciatica (Primary Dx); Second trimester ([facility]); 20 weeks gestation of ([facility]) Start: 10-17-2024 End: 10-17-2024 ambulatory LAYO SHERWIN Not Available Start: 10-11-2024 End: 10-11-2024 flow sheet Layo Sherwin DO Work Phone: [facility] Comment on above: Second trimester pre gnancy; 19 weeks gestation of ; Prur[facility] Start: 10-11-2024 End: 10-11-2024 ambulatory LAYO SHERWIN Not Available Start: 10-11-2024 End: 10-11-2024 Bamboo flowsheet Layo Sherwin DO Work Phone: [facility] Start: 10-11-2024 End: 10-11-2024 Bamboo flowsheet Layo Sherwin DO Work Phone: [facility] Start: 10-11-2024 End: 10-11-2024 Clinisync Result Encounter Layo Sherwin DO Work Phone: [facility] External [facility] Unsolicited Start: 10-07-2024 End: 10-07-2024 Clinisync Result Encounter Layo Sherwin DO Work Phone: [facility] External Department Unsolicited Start: 10-07-2024 End: 10-07-2024 Clinisync Result Encounter Layo Sherwin DO Work Phone: [facility] External Department Unsolicited Start: 10-07-2024 End: 10-07-2024 Subsequent hospital visit by physician Myles [facility] [address] Satnam Comment on above: ([facility]) Start: 10-07-2024 End: 10-07-2024 ambulatory LAYO [facility] Start: 09-22-2024 End: 09-22-2024 ambulatory BRANDY [...] End: 07-11-2024 Patient encounter procedure Donya Abernathy [employer] Work Phone: [facility] Comment on above: Fertility testing (P rimary Dx); Encounter to determine viability of , single or unspecified fetus Start: 07-11-2024 End: 07-11-2024 ambulatory [facility] Start: 06-30-2024 End: 06-30-2024 ambulatory [facility] Start: 06-23-2024 End: 06-23-2024 [facility] Start: 06-23-2024 End: 06-23-2024 ambulatory [facility] Start: 06-13-2024 End: 06-13-2024 Subsequent hospital visit by physician Juan Chavarria MD Work Phone: [facility] Comment on above: Encounter for assist ed reproductive fertility cycle Start: 06-13-2024 End: 06-13-2024 ambulatory JUAN CHAVARRIA [facility] Start: 06-07-2024 End: 06-07-2024 ambulatory [facility] Start: 06-06-2024 End: 06-06-2024 [facility] Start: 06-06-2024 End: 06-06-2024 Professional / ancillary services management Mac [id number] [facility] Ul[facility] Comment on above: Female infertility Start: 06-06-2024 End: 06-06-2024 ambulatory [facility] Start: 05-23-2024 End: 05-23-2024 [facility] Start: 04-06-2024 ambulatory Mallory Jauregui [facility] Start: 04-06-2024 End: 04-06-2024 Patient encounter procedure Mallory Jauregui [facility] Start: 03-22-2024 End: 03-22-2024 Subsequent hospital visit by physician Juan Chavarria MD Work Phone: [facility] Comment on above: Encounter for assist ed reproductive fertility cycle Start: 03-22-2024 End: 03-22-2024 ambulatory JUAN CHAVARRIA [facility] Start: 03-21-2024 End: 03-21-2024 ambulatory [facility] Start: 03-20-2024 End: 03-20-2024 Professional / ancillary services management Mac [id number] [facility] Comment on above: Female infertility Start: 03-20-2024 End: 03-20-2024 ambulatory [facility] Start: 03-19-2024 End: 03-19-2024 Professional / ancillary services management Mac [id number] [facility] Comment on above: Female infertility Start: 03-19-2024 End: 03-19-2024 ambulatory [facility] Start: 03-17-2024 End: 03-17-2024 ambulatory [facility] Start: 03-17-2024 End: 03-17-2024 Professional / ancillary services management Mac [id number] [facility] Comment on above: Female infertility Start: 03-17-2024 End: 03-17-2024 ambulatory [facility] Start: 03-15-2024 End: 03-15-2024 ambulatory [facility] Start: 03-15-2024 End: 03-15-2024 ambulatory DONYA ABERNATHY [facility] Start: 03-15-2024 End: 03-15-2024 Professional / ancillary services management Mac [id number] [facility] Comment on above: Female infertility Start: 03-09-2024 End: 03-09-2024 ambulatory [facility] Start: 03-09-2024 End: 03-09-2024 Patient encounter status [facility] Start: 03-09-2024 End: 03-09-2024 Professional / ancillary services management Mac [id number] [facility] Comment on above: Female infertility; Pre-procedure lab exam Start: 03-09-2024 End: 03-09-2024 ambulatory AMERICA Del Real [facility] Start: 02-23-2024 End: 02-23-2024 Subsequent hospital visit by physician Juan Chavarria MD Work Phone: [facility] Comment on above: Encounter for assist ed reproductive fertility cycle Start: 02-23-2024 End: 02-23-2024 ambulatory JUAN CHAVARRIA [facility] Start: 02-22-2024 End: 02-22-2024 [facility] Start: 02-21-2024 End: 02-21-2024 Professional / ancillary services management Mac [id number] [facility] Comment on above: Female infertility Start: 02-21-2024 End: 02-21-2024 [facility] Start: 02-20-2024 End: 02-20-2024 ambulatory [facility] Start: 02-20-2024 End: 02-20-2024 Professional / ancillary services management Mac [id number] [facility] Ultras[facility] Comment on above: Female infertility Start: 02-20-2024 End: 02-20-2024 ambulatory AMERICA Del Real [facility] Start: 02-18-2024 End: 02-18-2024 ambulatory [facility] Start: 02-18-2024 End: 02-18-2024 Professional / ancillary services management [facility] [id number] Kelsy Ultrasound [facility] Hay Comment on above: Female infertility Start: 02-18-2024 End: 02-18-2024 ambulatory AMERICA R [facility] Start: 02-16-2024 End: 02-16-2024 Professional / ancillary services management [facility] [id number] Kelsy Ultrasound [facility] Comment on above: Female infertility Start: 02-16-2024 End: 02-16-2024 ambulatory [place] [facility] Start: 02-09-2024 End: 02-09-2024 Patient encounter status Mac Ultrasound [facility] Start: 02-09-2024 End: 02-09-2024 Professional / ancillary services management [facility] [id number] Kelsy Ultrasound [facility] Comment on above: Pre-procedure lab ex am; Female infertility Start: 02-09-2024 End: 02-09-2024 ambulatory [facility] Start: 02-02-2024 End: 02-02-2024 ambulatory [facility] Start: 01-28-2024 End: 01-28-2024 Subsequent hospital visit by physician Leigh Ann Tuttle MD Work Phone: [facility] Comment on above: Endometrial polyp Start: 01-28-2024 End: 01-28-2024 ambulatory LEIGH ANN TUTTLE [facility] Start: 01-25-2024 End: 01-25-2024 ambulatory [facility] Start: 01-25-2024 End: 01-25-2024 Encounter for preprocedural laboratory examination [facility] Start: 01-14-2024 End: 01-14-2024 Enedina flowsyaquelin SEARS Work Phone: [facility] Start: 01-14-2024 End: 01-20-2024 Virgiliobonabor flowsyaquelin SEARS Work Phone: [facility] Start: 01-14-2024 End: 01-20-2024 Clinisync Result Encounter Brandy Higginsbryant SEARS Work Phone: [facility] External Department Unsolicited Start: 01-14-2024 End: 01-14-2024 Patient encounter procedure Brandy Oyst[place] PA Work Phone: [facility] Work Phone: Start: 01-14-2024 End: 01-14-2024 Periodic preventive med est patient 18-39 yrs Brandy Sissy SEARS Work Phone: [facility] Comment on above: Well woman exam with routine gynecological exam Start: 12-28-2023 End: 12-28-2023 Patient encounter procedure Juan Chavarria MD Work Phone: [facility] Comment on above: Fertility testing [Z 31.41] (Primary Dx); 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 [Z31.81, N97.8] Start: 12-28-2023 End: 12-28-2023 ambulatory JUAN CHAVARRIA [facility] Start: 12-25-2023 End: 12-25-2023 ambulatory AFUA GIRALDO [facility] Start: 2023 End: 2023 ambulatory [facility] Start: 2023 End: 2023 Patient encounter procedure Trish Thorpe [employer] WORK[employer] Work Phone: [facility] Comment on above: Encounter for screen ing for other viral diseases (Primary Dx); Encounter for Rh blood typing; Screening for STDs (sexually transmitted diseases); Genetic screening; Fertility testing; Female infertility associated with male factors Start: 2023 End: 2023 Patient encounter status Trish Thorpe [employer]AL [employer]IRE[employer]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 Work Phone: [facility] Work Phone: Start: 2023 End: 2023 ambulatory TRISH THORPE [facility] Start: 2023 End: 2023 Encounter for blood typing TRISH Polo [facility] Start: 10-21-2023 ambulatory Princess Rapp Facil ity:[facility] Start: 10-02-2023 End: 10-02-2023 ambulatory Princess Rapp Facility:[facility] Start: 10-02-2023 End: 10-02-2023 Patient encounter procedure Princess Rapp [facility] Start: 08-27-2023 End: 08-27-2023 ambulatory Princess Rapp Facility:[facility] Start: 08-27-2023 End: 08-27-2023 Patient encounter procedure Princess Rapp [facility] Start: 03-25-2023 End: 03-25-2023 Patient encounter procedure Princess Rapp [facility] Start: 02-19-2023 End: 02-19-2023 Patient encounter procedure Princess Rapp [facility] Start: 07-26-2022 End: 07-27-[address] LAYO COURTNEY . Facility:[facility] Start: 07-23-2022 End: 07-23-[address] LAYO COURTNEY . Facility:[facility] Start: 07-24-2021 End: 07-24-2021 Patient encounter procedure Leigh Ann Covington [facility] Procedures Date Procedure Procedure Detail Performing Clinician Start: 02-07-2025 US OB BPP W NON-STRESS Layo Courtney DO Work Phone: Start: 02-07-2025 Urnls dip stick/tabl et rgnt non-auto w/o micrscp Yomaira Guerrero [employer] Work Phone: Start: 02-01-2025 US OB BPP W NON-STRESS Layo Sherwin DO Work Phone: Start: 02-01-2025 US OB GROWTH Layo Fazi o DO Work Phone: Start: 01-31-2025 Urnls dip stick/tabl et rgnt non-auto w/o micrscp Yomaira Guerrero [employer] Work Phone: Start: 01-25-2025 US OB BPP [...] nonobstetr ic image dcmtn limited/f/u Donya Abernathy [employer]OR WORKER Work Phone: Start: 03-22-2024 Follicle puncture oo cyte retrieval any method Donya Abernathy [employer]OR WORKER Work Phone: Start: 03-20-2024 Us pelvic nonobstetr ic image dcmtn limited/f/u Donya Abernathy [employer]OR WORKER Work Phone: Start: 03-20-2024 Assay of estradiol America Gt Dwight [employer]IRE[employer]ITOR WORKER Work Phone: Start: 03-19-2024 Us pelvic nonobstetr ic image dcmtn limited/f/u Donya Abernathy [employer] WORKER Work Phone: Start: 03-17-2024 Us pelvic nonobstetr ic image dcmtn limited/f/u Donya Abernathy [employer]IRE[employer]ITOR WORKER Work Phone: Start: 03-17-2024 Assay of estradiol Donya Abernathy [employer]OR WORKER Work Phone: Start: 03-15-2024 Us pelvic nonobstetr ic image dcmtn limited/f/u Donya Abernathy [employer] WORKER Work Phone: Start: 03-15-2024 Assay of estradiol Donya Abernathy [employer]IRE[employer]OR WORKER Work Phone: Start: 03-09-2024 Us pelvic nonobstetr ic image dcmtn limited/f/u America R Dwight [employer]AL [employer]IRE[employer]MONITOR WORKER Work Phone: Start: 03-09-2024 Blood count hematocrit Donya Abernathy [employer]IRE[employer]OR WORKER Work Phone: Start: 02-23-2024 Follicle puncture oo cyte retrieval any method Beth Warren MD Work Phone: Start: 02-21-2024 Us pelvic nonobstetr ic image dcmtn limited/f/u America R Dwight [employer] WORKER Work Phone: Start: 02-21-2024 Gonadotropin luteini zing hormone Beti Warren MD Work Phone: Start: 02-18-2024 Us pelvic nonobstetr ic image dcmtn limited/f/u America R Dwight [employer]IRE[employer]OR WORKER Work Phone: Start: 02-18-2024 Assay of estradiol America Chavez [employer]IRE[employer]MONITOR WORKER Work Phone: Start: 02-16-2024 Assay of estradiol America Chavez [employer]IRE[employer]MONITOR WORKER Work Phone: Start: 02-09-2024 Blood count hematocrit America Chavez [employer]AL UMPIRE[employer]MONITOR WORKER Work Phone: Start: 02-09-2024 Us pelvic nonobstetr ic image dcmtn limited/f/u America Chavez [employer]IRE[employer]MONITOR WORKER Work Phone: Start: 01-28-2024 Hysteroscopy bx endometrium&/polypc [...] knee anterior cruciate ligament allograft reconstruction with [id number], debridment medial meniscus tear, patellofemoral chondroplasty-Grade I-II Leigh Ann Covington Tonsillectomy Leigh Ann Covington tubes in the ears Leigh Ann bartholomew Plan of Treatment Date Care Activity Detail Author Start: 2072 RSV High Risk: (Elderly (60+) or Population) (1 - 1-dose 75+ series) RSV High Risk: (Elderly (60+) or Population) (1 - 1-dose 75+ series) [facility] Start: 12-12-2047 Zoster Vaccines (1 of 2) Zoster Vaccines (1 of 2) [facility] Start: 01-13-2027 Screening for malignant neoplasm of cervix [facility] Start: 02-14-2025 End: 02-14-2025 Patient encounter procedure 02/14/2025 2:30 PM EDT Routine [facility] [address] [phone] Layo Courtney DO [address] [place] [address] [facility] Start: 02-07-2025 End: 02-07-2025 Patient encounter procedure [facility] Comment on above: Arrived Start: 01-31-2025 End: 01-31-2026 CULTURE, GROUP B STREP WITH SUSCEPTIBLITY CULTURE, GROUP B STREP WITH SUSCEPTIBLITY Lab Routine Third trimester ([facility]) Expected: 01/31/2025, Expires: 01/31/2026 [facility] Work Phone: Comment on above: Expected: 01/31/2025, Expires: Start: 01-31-2025 End: 06-02-2025 US for US OB follow up transabdominal approach Imaging Routine Encounter for in vitro fertilization Expected: 01/31/2025, Expires: 06/02/2025 [facility] Comment on above: Expected: 01/31/2025, Expires: Start: 01-31-2025 End: 01-31-2025 Patient encounter procedure 01/31/2025 1:50 PM EDT Rout[facility] [address] [place] [phone] Yomaira Guerrero, MARGARITO [address] [place] [phone] [facility] Start: 01-30-2025 End: 01-30-2025 Patient encounter procedure 01/30/2025 3:50 PM EDT Routine [facility] [address] [place] [phone] Yomaira Guerrero, [employer] [address] [place] [phone] [facility] Start: 01-16-2025 End: 01-16-2025 Patient encounter procedure [facility] Comment on above: Arrived Start: 01-03-2025 End: 07-03-2025 US biophysical profile w non stress test US biophysical profile w non stress test Imaging Routine resulting from in vitro fertilization in third trimester ([facility]) Expected: 01/03/2025 (Approximate), Expires: 07/03/2025 [facility] Work Phone: Comment on above: Expected: 01/03/2025 (Approximate), Expi res: 07/03/2025 Start: 01-03-2025 End: 01-03-2025 Patient encounter procedure [facility] Comment on above: Arrived Start: 01-02-2025 Influenza vaccination Influenza Vaccine (Season Ended) [facility] Start: 12-19-2024 End: 12-19-2024 Professional / ancillary services management 12/19/2024 9:30 AM EDT Ancillary Procedure [facility] [address] [place] [address] [facility] Start: 12-19-2024 End: 12-19-2024 Patient encounter procedure [facility] Start: 12-06-2024 End: 12-06-2024 Patient encounter procedure [facility] Comment on above: Arrived Start: 11-08-2024 End: 11-08-2024 Patient encounter procedure 11/08/2024 2:40 PM EDT Routine [facility] [address] [place] [phone] Layo Courtney, [address] [place], [place] [phone] [facility] Start: 11-08-2024 End: 11-08-2025 CBC [...] mellitus screening Expected: 11/08/2024 (Approximate), Expires: 11/08/2025 [facility] Comment on above: Expected: 11/08/2024 (Approximate), Expi res: 11/08/2025 Start: 10-17-2024 End: 10-17-2024 Patient encounter procedure 10/17/2024 1:00 PM EDT Routine [facility] [address] [place] [address] Layo Courtney DO [address] [place] [address] Arrived [facility] Comment on above: Arrived Start: 10-11-2024 End: 10-11-2024 [facility] Comment on above: Arrived Start: 10-11-2024 End: 10-11-2025 Bile acids, total Bile acids, total Lab Routine Pruritus Expected: 10/11/2024 (Approximate), Expires: 10/11/2025 [facility] Comment on above: Expected: 10/11/2024 (Approximate), [...] Routine Pruritus Expected: 10/11/2024 (Approximate), Expires: 10/11/2025 [facility] Comment on above: Expected: 10/11/2024 (Approximate), Expi res: 10/11/2025 Start: 10-11-2024 End: 10-11-2025 Hepatitis C virus Ab [Presence] in Serum or Plasma by Immunoassay Hepatitis C antibody Lab Routine Pruritus Expected: 10/11/2024 (Approximate), Expires: 10/11/2025 [facility] Work Phone: Comment on above: Expected: 10/11/2024 (Approximate), Expi res: 10/11/2025 Start: 10-11-2024 End: 10-11-2025 Thyrotropin [Units/volume] in Serum or Plasma TSH Lab Routine Pruritus Expected: 10/11/2024 (Approximate), Expires: 10/11/2025 [facility] Comment on above: Expected: 10/11/2024 (Approximate), Expi res: 10/11/2025 Start: 09-06-2024 End: 09-06-2024 Patient encounter procedure [facility] Comment on above: Arrived Start: 09-06-2024 End: 11-06-2024 Alpha fetoprotein, maternal Alpha fetoprotein, maternal Lab Routine Second trimester Expected: 09/06/2024 (Approximate), Expires: 11/06/2024 [facility] Comment on above: Expected: 09/06/2024 (Approximate), Expi res: 11/06/2024 Start: 09-06-2024 End: 12-07-2024 US for US OB 14+ weeks anatomy scan Imaging Routine Screening, , for anatomic survey Expected: 09/06/2024, Expires: 12/07/2024 [facility] Comment on above: Expected: 09/06/2024, Expires: Start: 08-08-2024 End: 08-08-2024 Patient encounter procedure [facility] Comment on above: Arrived Start: 07-29-2024 End: 07-29-2025 ABO/Rh ABO/Rh Lab Routine Missed menses , unspecified gestational age Expected: 07/29/2024 (Approximate), Expires: 07/29/2025 [facility] Comment on above: Expected: 07/29/2024 (Approximate), Expi res: 07/29/2025 Start: 07-29-2024 End: 07-29-2025 Blood type and Indirect antibody screen panel - Blood Type and screen Lab Routine Missed menses , unspecified gestational age Expected: 07/29/2024 (Approximate), Expires: 07/29/2025 [facility] Work Phone: Comment on above: Expected: 07/29/2024 (Approximate), Expi res: 07/29/2025 Start: 07-29-2024 End: 07-29-2025 Drugs of abuse panel - Urine by Screen method Rapid drug screen, urine Lab Routine , unspecified gestational age Encounter for supervision of normal first in first trimester Expected: 07/29/2024 (Approximate), Expires: 07/29/2025 [facility] Comment on above: Expected: 07/29/2024 (Approximate), Expi res: 07/29/2025 Start: 07-11-2024 End: 07-11-2025 Progesterone [Mass/volume] in Serum or Plasma Progesterone Lab Routine Fertility testing Expected: 07/11/2024 (Approximate), Expires: 07/11/2025 [facility] Service Area Work Phone: Comment on above: Expected: 07/11/2024 (Approximate), Expi res: 07/11/2025 Start: 06-23-2024 Orders Only 06/23/2024 Orders Only Valeria Hay [facility] [address] [address] Ira Lopez, MISHEL Encounter for test, result unknown Valeria Hay Comment on above: Encounter for test, result unk nown Start: 03-20-2024 End: 03-20-2025 Lutropin [Units/volume] in Serum or Plasma Luteinizing Hormone Lab STAT Female infertility Expected: 03/20/2024 (Approximate), Expires: 03/20/2025 [facility] Work Phone: Comment on [...] [facility] [address] [place] [phone] [facility] Start: 03-19-2024 End: 03-19-2024 Professional / ancillary services management 03/19/2024 8:30 AM EST Ancillary Procedure [facility] [address] [address] [facility] Start: 03-17-2024 End: 03-17-2025 Estradiol (E2) [Mass/volume] in Serum or Plasma Estradiol Lab STAT Female infertility Expected: 03/17/2024 (Approximate), Expires: 03/17/2025 [facility] Service Area Work Phone: Comment on above: Expected: 03/17/2024 (Approximate), Expi res: 03/17/2025 Start: 03-17-2024 End: 03-17-2025 Progesterone [Mass/volume] in Serum or Plasma [facility] Work Phone: Comment on above: Expected: 03/17/2024 (Approximate), Expi res: 03/17/2025 Start: 03-17-2024 End: 03-17-2024 Professional / ancillary services management 03/17/2024 6:45 AM EST Ancillary Procedure TERRY [facility] [address] [address] [facility] Start: 03-15-2024 End: 03-15-2024 Professional / ancillary services management 03/15/2024 6:45 AM EST Ancillary Procedure [facility] [address] [place] [address] [facility] Start: 03-09-2024 End: 03-09-2024 Professional / ancillary services management 03/09/2024 7:15 AM EST Ancillary Procedure Valeria Simmonson [address] [place] [address] [facility] Start: 02-23-2024 End: 02-23-2024 Patient encounter procedure 02/23/2024 8:30 AM EDT Appointment TERRY [facility] [address] [place] [address] Juan Chavarria MD [address] Alexia Darío Hay, Brodie [address] [place] [address] [phone] [place] [id number] [address] Department of Anesthesiology and [place] [address] [facility] Start: 02-21-2024 End: 02-21-2024 Professional / ancillary services management 02/21/2024 8:30 AM EDT Ancillary Procedure [facility] [address] [place] [phone] [facility] Start: 02-20-2024 End: 02-17-2025 Estradiol (E2) [Mass/volume] in Serum or Plasma Estradiol Lab STAT Female infertility Expected: 02/20/2024 (Approximate), Expires: 02/17/2025 [facility] Service Area Work Phone: Comment on above: Expected: 02/20/2024 (Approximate), Expi res: 02/17/2025 Start: 02-20-2024 End: 02-17-2025 Progesterone [Mass/volume] in Serum or Plasma Progesterone Lab STAT Female infertility Expected: 02/20/2024 (Approximate), Expires: 02/17/2025 [facility] Work Phone: Comment on above: Expected: 02/20/2024 (Approximate), Expi res: 02/17/2025 Start: 02-20-2024 End: 02-20-2024 Professional / ancillary services management 02/20/2024 8:30 AM EDT Ancillary Procedure [facility] [address] [place] [phone] [facility] Start: 02-18-2024 End: 02-18-2024 Professional / ancillary services management 02/18/2024 7:45 AM EDT Ancillary Procedure [facility] [address] [place] [phone] [facility] Start: 02-16-2024 End: 02-16-2024 Professional / ancillary services management 02/16/2024 7:15 AM EDT Ancillary Procedure [facility] [address] [place] [address] [facility] Start: 02-09-2024 End: 02-09-2024 Professional / ancillary services management 02/09/2024 7:15 AM EDT Ancillary Procedure [facility] [address] [place] [address] [facility] Start: 01-14-2024 End: 01-14-2024 Patient encounter procedure 01/14/2024 11:00 AM EDT Office Visit [facility] [address] [place] [phone] Brandy Sheehan PA [address] [place] [place] [address] Arrived [facility] Comment on above: Arrived Start: 01-03-2024 COVID-19 Vaccine ( season) COVID-19 Vaccine ( season) [facility] Start: 01-03-2024 COVID-19 Vaccine ( season) COVID-19 Vaccine ( season) [facility] Start: 01-03-2024 Influenza vaccination Influenza Vaccine (#1) [facility] Start: 12-25-2023 End: 12-25-2023 Telemedicine consultation with patient 12/25/2023 9:00 AM EDT Telemedicine Clinical Support [facility] [address] [place] [phone] RipAfua garcia I, LGC [address] [facility] [place] [address] [facility] Start: 2023 End: 12-10-2024 Chlamydia trachomatis and Neisseria gonorrhoeae DNA [Identifier] in Unspecified specimen by EDELMIRA with probe detection [facility] Work Phone: Comment on above: Expected: 2023 (Approximate), Expi res: 12/10/2024 Start: 2023 End: 12-10-2024 Hepatitis B virus surface Ag [Presence] in Serum or Plasma by Immunoassay [facility] Work Phone: Comment on above: Expected: 2023 (Approximate), Expi res: 12/10/2024 Start: 2023 End: 12-10-2024 Hepatitis C virus Ab [Presence] in Serum [facility] Work Phone: Comment on above: Expected: 2023 (Approximate), Expi res: 12/10/2024 Start: 2023 End: 12-10-2024 HIV 1+2 Ab+HIV1 p24 Ag [Presence] in Serum or Plasma by Immunoassay [facility] Work Phone: Comment on above: Expected: 2023 (Approximate), Expi res: 12/10/2024 Start: 2023 End: 12-10-2024 Rubella virus IgG Ab [Units/volume] in Serum [facility] Service Area Work Phone: Comment on above: Expected: 2023 (Approximate), Expi res: 12/10/2024 Start: 2023 End: 12-10-2024 Treponema pallidum IgG+IgM Ab [Presence] in Serum by Immunoassay [facility] Work Phone: Comment on above: Expected: 2023 (Approximate), Expi res: 12/10/2024 Start: 2023 End: 12-10-2024 Varicella zoster virus IgG Ab [Presence] in Serum by Immunoassay [facility] Work Phone: Comment on above: Expected: 2023 (Approximate), Expi res: 12/10/2024 Start: 01-02-2023 COVID-19 Vaccine (2022- season) COVID-19 Vaccine (2022- season) [facility] Start: 12-21-2019 DTaP/Tdap/Td Vaccines (2 - Td or Tdap) DTaP/Tdap/Td Vaccines (2 - Td or Tdap) [facility] Start: 2018 Screening for malignant neoplasm of cervix [facility] Start: 2016 Hepatitis B Vaccines (1 of 3 - 19+ 3-dose series) Hepatitis B Vaccines (1 of 3 - 19+ 3-dose series) [facility] Start: 12-12-2015 Hepatitis C screening Hepatitis C Screening [facility] Start: 2012 HPV Vaccines (1 - 3-dose series) HPV Vaccines (1 - 3-dose series) [facility] Start: 03-14-2010 Varicella vaccination Varicella Vaccines (2 of 2 - 2-dose childhood series) [facility] Start: 01-17-2010 MMR Vaccines (1 of 1 - Standard series) MMR Vaccines (1 of 1 - Standard series) [facility] Start: 1997 HIV screening HIV Screening [facility] Start: 1997 Lipid panel Lipid Panel [facility] Start: 1997 Yearly Adult Physical Yearly Adult Physical [facility] Bacteria identified in Urine by Culture Urine culture Microbiology Routine Missed menses Ordered: 07/29/2024 [facility] Comment on above: Ordered: 07/29/2024 Bacteria identified in Urine by Culture Urine culture Microbiology Routine Leukocytes in urine Other microscopic hematuria Ordered: 12/19/2024 [facility] [employer] Work Phone: Comment on above: Ordered: 12/19/2024 CBC W Auto Different ial panel - Blood CBC and differential Lab Routine Missed menses , unspecified gestational age Ordered: 07/29/2024 [facility] Comment on above: Ordered: 07/29/2024 CHLAMYDIA TRACHOMATI S (GENITO/STI) CHLAMYDIA TRACHOMATIS (GENITO/STI) Lab Routine STD exposure Ordered: 09/06/2024 [facility] Comment on above: Ordered: 09/06/2024 End: [...] exam with routine gynecological exam Ordered: 01/14/2024 [facility] [employer] Work Phone: Comment on above: Ordered: 01/14/2024 Hemoglobin A1c/Hemoglobin.total in Blood Hemoglobin A1c Lab Routine Missed menses , unspecified gestational age Ordered: 07/29/2024 [facility] Comment on above: Ordered: 07/29/2024 Hepatitis B virus abrams rface Ag [Presence] in Serum or Plasma by Immunoassay Hepatitis B surface antigen Lab Routine Missed menses , unspecified gestational age Ordered: 07/29/2024 [facility] Comment on above: Ordered: 07/29/2024 Hepatitis C virus Ab [Presence] in Serum or Plasma by Immunoassay Hepatitis C antibody Lab Routine Missed menses , unspecified gestational age Ordered: 07/29/2024 [facility] Comment on above: Ordered: 07/29/2024 HIV-1/HIV-2 antigen/antibody combination immunoassay HIV-1 and HIV-2 antibodies Lab Routine Missed menses , unspecified gestational age Ordered: 07/29/2024 [facility] Comment on above: Ordered: 07/29/2024 Neisseria gonorrhoea e DNA [Presence] in Unspecified specimen by EDELMIRA with probe detection Neisseria gonorrhea DNA probe, direct Lab Routine STD exposure Ordered: 09/06/2024 [facility] Comment on above: Ordered: 09/06/2024 Reagin Ab [Presence] in Serum by RPR RPR Lab Routine Missed menses , unspecified gestational age Ordered: 07/29/2024 [facility] Comment on above: Ordered: 07/29/2024 KELSY US Pelvis Limite d Follicles - Follicle Studies Performed KELSY US Pelvis Limited Follicles - Follicle Studies Performed Imaging Routine Female infertility 02/16/2024 7:17 AM T [facility] Service Area Work Phone: KELSY US Pelvis Limite d Follicles - Follicle Studies Performed KELSY US Pelvis Limited Follicles - Follicle Studies Performed Imaging Routine Female infertility 02/20/2024 9:06 AM EDT [facility] Service [facility] Work Phone: Rubella antibody, IgG Rubella an tibody, IgG Lab Routine Missed menses , unspecified gestational age Ordered: 07/29/2024 [facility] Comment on above: Ordered: 07/29/2024 SURESWAB(R) ADVANCED VAGINITIS PLUS, TMA SURESWAB(R) ADVANCED VAGINITIS PLUS, TMA Pathology and Cytology Routine STD exposure Ordered: 09/06/2024 [facility] Work Phone: Comment on above: Ordered: 09/06/2024 End: 01-28-2024 Surgical pathology study [facility] Work Phone: Comment on above: Once (Lab) for 1 Occurrences starting until 01/28/2024, 1 completed Once (Lab) for 1 Occ urrences starting 01/28/2024 until 01/28/2024 Immunizations Immunization Date Immunization Notes Care Provider Fa cility 12-20-2009 meningococcal ACWY vaccine, unspecified formulation Princess Rapp [facility] 12-20-2009 tetanus toxoid, reduced diphtheria toxoid, and acellular pertussis vaccine, adsorbed Princesssourav Rapp [facility] 12-20-2009 varicella virus vaccine Princess Rapp [facility] NEGATED: Highlighted row has not occurred!04-06-2024 influenza virus vaccine, unspecified formulation Mallory Jauregui [facility] NEGATED: Highlighted row has not occurred!06-26-2021 influenza virus vaccine, unspecified formulation Leigh Ann Covington [facility] NEGATED: Highlighted row has not occurred!06-26-2021 SARS-CoV-2 (COVID-19) Ad26 vaccine, recombinant Leigh Ann Covington [facility] NEGATED: Highlighted row has not occurred!01-29-2021 influenza virus vaccine, unspecified formulation Leigh Ann Adria [facility] NEGATED: Highlighted row has not occurred!01-29-2021 SARS-CoV-2 (COVID-19) Ad26 vaccine, recombinant Leigh Ann Covington [facility] NEGATED: Highlighted row has not occurred!05-03-2019 influenza virus vaccine, live, attenuated, for intranasal use Leigh Ann Covington [facility] NEGATED: Highlighted row has not occurred!09-30-2018 influenza virus vaccine, unspecified formulation Leigh Ann Covington [facility] Primary Care Payers Date Payer Category Payer Managed Care (Private) 1.2.8 [id number] 2022 Private Health Insurance [employer] [id number]. [id number] 2022 Unknown 1.2.840.155559. 1.13.647.2. 7.3.593621.315 2022 Unknown [id number] 1997 Unknown [id number] 2.16.840.1.559759.3.579.2. 593 1997 Unknown [id number] 2.16.840.1.656500.3.579.2. 593 1997 Unknown [id number] 2.16.840.1.372375.3.579.2. 727 1997 Unknown [id number] 2.16.840.1.026953.3.579.2. 727 1997 Unknown [id number] 2.16.840.1.227985.3.579.2. 727 1997 Unknown [id number] 2.16.840.1.269854.3.579.2. 727 1997 Unknown [id number] 2.16.840.1.641319.3.579.2. 124 1997 Unknown [id number] 2.16.840.1.249254.3.579.2. 1242 1997 Unknown [id number] 2.16.840.1.919340.3.579.2. 1242 1997 Unknown [id number] 2.16840.1.733503.3.579.2. 1244 1997 Unknown [id number] 2.16840.1.548118.3.579.2. 1244 1997 Unknown [id number] 2.840.1.956427.3.579.2. 1244 1997 Unknown [id number] 2.16840.1.019511.3.579.2. 1244 1997 Unknown [id number] 2.16840.1.708202.3.579.2. 1244 1997 Unknown [id number] 2.16840.1.655691.3.579.2. 1244 1997 Unknown [id number] 2.16840.1.044786.3.579.2. 1244 1997 Unknown [id number] 2.16840.1.202918.3.579.2. 1244 1997 Unknown [id number] 2.16840.1.673370.3.579.2. 1244 1997 Unknown [id number] 2.16840.1.205485.3.579.2. 1244 1997 Unknown [id number] 2.16840.1.119770.3.579.2. 1244 1997 Unknown [id number] 2.16.840.1.924763.3.579.2. 1244 1997 Unknown [id number] 2.16.840.1.061833.3.579.2. 1244 1997 Unknown [id number] 2.16.840.1.567616.3.579.2. 1244 1997 Unknown [id number] 2.16.840.1.715224.3.579.2. 1244 1997 Unknown [id number] 2.16.840.1.155677.3.579.2. 1244 1997 Unknown [id number] 2.16840.1.075005.3.579.2. 1244 1997 Unknown [id number] 2.16840.1.475818.3.579.2. 1244 1997 Unknown [id number] 2.16840.1.137531.3.579.2. 1244 1997 Unknown [id number] 2.16840.1.384104.3.579.2. 1244 1997 Unknown [id number] 2.16840.1.194850.3.579.2. 1244 1997 Unknown [id number] 2.16840.1.081275.3.579.2. 1244 1997 Unknown [id number] 2.16840.1.639844.3.579.2. 1244 1997 Unknown [id number] 2.16840.1.531206.3.579.2. 1244 1997 Unknown [id number] 2.16840.1.484486.3.579.2. 1244 1997 Unknown [id number] 2.16840.1.976695.3.579.2. 1244 1997 Unknown [id number] 2.16840.1.066838.3.579.2. 1245 1997 Unknown [id number] 2.16.840.1.463142.3.579.2. 1244 1997 Unknown [id number] 2.16.840.1.013917.3.579.2. 1244 1997 Unknown [id number] 2.16840.1.680143.3.579.2. 1244 1997 Unknown [id number] 2.840.1.303986.3.579.2. 1244 1997 Unknown [id number] 2.840.1.632605.3.579.2. 1244 1997 Unknown [id number] 2.840.1.538158.3.579.2. 1244 1997 Unknown [id number] 2.0.1.546404.3.579.2. 1244 1997 Unknown [id number] 2.840.1.707585.3.579.2. 1244 1997 Unknown [id number] 2.840.1.287894.3.579.2. 1244 1997 Unknown [id number] 2.840.1.976502.3.579.2. 1244 1997 Unknown [id number] 2840.1.029018.3.579.2. 1258 1997 Unknown [id number] 2.840.1.460227.3.579.2. 125 1997 Unknown [id number] 2.840.1.430310.3.579.2. 1258 1997 Unknown [id number] 2.16840.1.866482.3.579.2. 1258 1997 Unknown [id number] 2.840.1.133902.3.579.2. 1258 1997 Unknown [id number] 2.16.840.1.568912.3.579.2. 9 1997 Unknown [id number] 2.16.840.1.086603.3.579.2. 9 1997 Unknown [id number] 2.16.840.1.274470.3.579.2. 9 1997 Unknown [id number] 2.16.840.1.881051.3.579.2. 1258 1997 Unknown [id number] 2.16.840.1.265916.3.579.2. 9 1997 Unknown [id number] 2.16.840.1.365353.3.579.2. 9 1997 Unknown [id number] 2.16.840.1.685034.3.579.2. 9 1997 Unknown [id number] 2.16.840.1.590518.3.579.2. 9 1997 Unknown [id number] 2.16.840.1.539602.3.579.2. 1259 1959 Unknown [id number] Social History Date Type Detail Facility Start: 07-24-2021 End: 03-05-2023 Tobacco smoking status Never smoked tobacco (finding) [facility] Tobacco smoking status Never [facility] Start: 01-28-2024 End: 07-29-2024 Sex Assigned At Female [facility] Start: 2023 Tobacco use and exposure Smokeless tobacco non-user [facility] Work Phone: Start: 01-28-2024 End: 06-23-2024 Alcoholic beverage intake Ex-drinker (finding) [facility] Work Phone: Start: 01-28-2024 End: 07-29-2024 History of Social function [facility] Work Phone: Start: 2023 Alcohol Comment Occassionally [facility] Work Phone: Start: 1997 Sex assigned at Not on file [facility] Work Phone: Start: 12-01-2023 End: 10-07-2024 Exposure to SARS-CoV-2 (event) Not sure [facility] Start: 02-23-2024 End: 02-07-2025 Alcoholic beverage intake Current drinker of alcohol (finding) [facility] Work Phone: Start: 03-05-2023 Alcohol Comment Beer 1-2 times per m [facility] Start: 12-18-2023 End: 12-28-2023 Exposure to SARS-CoV-2 (event) Unable to assess [facility] Start: 06-08-2024 [facility] Medical Equipment Procedure Code Equipment Code Equipment Origin al Text Equipment Identifier Dates [id number] Start: 03-01-2024 End: 03-09-2024 Functional Status Date Assessment Result Facility 04-06-2024 Functional Status N/A [facility] 10-02-2023 Functional Status N/A [facility] 08-27-2023 Functional Status N/A [facility] 02-19-2023 Functional Status N/A [facility] Clinical Notes 07-24-2021 to [...] nursing note reviewed. Exam conducted with a receptionist nurse present. Vitals: Estimated body mass index is 41.88 kg/m as calculated from the following: Height as of 09/17/22: 5' 3 . Weight as of this encounter: 236 lb 6.4 oz. BP: 128/82 No LMP recorded. Patient is . ASSESSMENT & PLAN ICD-10-CM 1. Third trimester ([facility]) Z34.93 2. 36 weeks gestation of ([facility]) Z3A.36 POCT urinalysis dipstick manually resulted Return [...] Yomaira Guerrero NP documented in this encounter [facility] 01-31-2025 History of Present illness Narrative Reason [...] nursing note reviewed. Exam conducted with a receptionist nurse present. Vitals: Estimated body mass index is [...] Yomaira Guerrero NP documented in this encounter [facility] 01-16-2025 History of Present illness Narrative [...] Layo Courtney DO documented in this encounter [facility] 01-03-2025 History of Present illness Narrative [...] nursing note reviewed. Exam conducted with a receptionist nurse present. Vitals: Estimated body mass index is [...] Layo Courtney DO documented in this encounter [facility] 12-19-2024 History of Present illness Narrative [...] nursing note reviewed. Exam conducted with a receptionist nurse present. Vitals: Estimated body mass index is 38.76 kg/m as calculated from the following: Height as of 09/17/22: 5' 3 . Weight as of this encounter: 218 lb 12.8 oz. BP: 116/70 No LMP recorded. Patient is . ASSESSMENT & PLAN ICD-10-CM 1. 29 weeks gestation of ([facility]) Z3A.29 POCT urinalysis dipstick manually resulted 2. Third trimester ([facility]) Z34.93 POCT urinalysis dipstick manually resulted [...] Layo Courtney DO documented in this encounter [facility] 12-06-2024 History of Present illness Narrative [...] PLAN ICD-10-CM 1. 27 weeks gestation of ([facility]) Z3A.27 POCT urinalysis dipstick manually resulted 2. Second trimester ([facility]) Z34.92 POCT urinalysis dipstick manually resulted Return [...] Layo Courtney DO documented in this encounter [facility] 11-08-2024 History of Present illness Narrative [...] ASSESSMENT & PLAN ICD-10-CM 1. Second trimester ([facility]) Z34.92 POCT urinalysis dipstick manually resulted 2. 26 weeks gestation of ([facility]) Z3A.26 POCT urinalysis dipstick manually resulted [...] Layo Courtney DO documented in this encounter [facility] 10-17-2024 History of Present illness Narrative [...] nursing note reviewed. Exam conducted with a receptionist nurse present. Vitals: Estimated body mass index is [...] Layo Courtney DO documented in this encounter [facility] 10-11-2024 History of Present illness Narrative [...] Layo Courtney DO documented in this encounter [facility] 09-06-2024 History of Present illness Narrative [...] of: ORION Spence documented in this encounter [facility] 08-08-2024 History of Present illness Narrative [...] nursing note reviewed. Exam conducted with a receptionist nurse present. Vitals: Estimated body mass index is [...] Layo Courtney DO documented in this encounter [facility] 07-29-2024 History of Present illness Narrative [...] screen, urine; Future Nurse Note: Patient declined [place] [employer] to one Pt is an IVF [...] or undercooked meat, and stay away from [facility]. Patient has also been advised to [...] Marilia Elder MA documented in this encounter [facility] 07-11-2024 History of Present illness Narrative [...] 3:54 PM documented in this encounter [facility] Work Phone: 06-13-2024 History [...] Preop diagnosis: Infertility Post op diagnosis: Same Bilingual Speech Language Pathologist: none Depth: 7 cm Curve: anterior Distance [...] 11:24 AM documented in this encounter [facility] Work Phone: 06-13-2024 Hospital Discharge instructions Tisha Sparks RN - 06/13/2024 10:43 AM EST Images from the original note were not included. [facility] [address] [place] [address] Home Going Instructions after Embryo Transfer: After [...] in : Advil, Motrin, Ibuprofen, Aleve, Excedrin, [place], Sudafed, and Pepto-Bismol. Avoid aspirin unless you [...] 10:43 AM documented in this encounter [facility] Work Phone: 06-06-2024 History [...] BID until further instructed. Message sent to welcome desk agent to schedule at 8:45 slot at lawn for US and labs. ZOE FRANCIS on 06/06/24 at 1:12 PM. documented in this encounter [facility] Work Phone: 04-06-2024 Hospital [...] provider. Document Revised: 09/09/2021 Document Reviewed: 09/09/2021 [employer] Patient Education 2023 [employer] Follow Up Care 03/25/2024 14:07:23 With:Mallory Judd Address: When:Within 6 Month(s) [facility] 03-22-2024 History of Present illness Narrative Associated Order(s): Egg Retrieval Pre-Procedure Diagnose(s): Encounter for assisted reproductive fertility cycle Post-Procedure Diagnose(s): Encounter for assisted reproductive fertility cycle Patient ID: Sydney Romero is a 28 y.o. female. Egg Retrieval Date/Time: 03/22/2024 9:39 AM Performed by: Juan Chavarria MD Authorized by: Donya Abernathy APRN-MONITOR WORKER Consent: Consent obtained: Verbal and written Consent [...] diagnosis: Female infertility Post op diagnosis: Same Bilingual Speech Language Pathologist: Dr. Warren IV Fluids: 600 cc EBL: 5 cc UOP: Not recorded Specimen: Oocytes Complications: None Number of Oocytes right ovary: 16 Ovarian access (right): Easy Number of Oocytes left ovary: 9 Ovarian access (left): Easy Endometrial thickness: n/a Needle type: Single Additional notes: documented in this encounter [facility] Work Phone: 03-22-2024 Nurse Note Patient discharged to home in stable condition via wheelchair to RIDE HOME: Partner's car. Accompanied by RN. VSS at time of discharge. Discharge instructions given and concerns addressed. Gisell Michel RN 03/22/24 11:08 AM [facility] Work Phone: 03-22-2024 Nurse Note Patient discharged to home in stable condition via wheelchair to RIDE HOME: Partner's car. Accompanied by RN. MOIS at time of discharge. Discharge instructions given and concerns addressed. Gisell Michel RN 03/22/24 11:08 AM documented in this encounter [facility] Work Phone: 03-22-2024 Hospital Discharge instructions Gisell Michel RN - 03/22/2024 8:45 AM EST Images from the original note were not included. [facility] [address]. [place] [id number] Home Going Instructions after Egg Retrieval: Activity: [...] 2 weeks following your oocyte retrieval. Call [phone] to speak with a Physician or Nurse if you have any concerns. Gisell Michel 8:45 AM [facility] [address] [place], [place] IVF LAB EMBRYO UPDATE PROTOCOL The [...] biopsied and frozen. Gisell Michel 8:44 AM [facility] [address] [place] [address] Frozen Embryo Transfer Instructions After your egg retrieval, follow up with your IVF nurse within 3-4 days Thursday-Thursday regarding the plan for your frozen embryo transfer (FET) cycle. Your IVF nurse will order and review with you the medications you will be using for the cycle. You will be sent an email from [employer] to fill out your Frozen Embryo Treatment [...] 8:44 AM documented in this encounter [facility] Work Phone: 03-20-2024 History [...] Arrive 60 minutes prior to procedure at [facility] [address]. Patient verbalizes understanding of plan and location of procedure. Patient scheduled to go to [facility] tomorrow for post trigger labs Krissy Yanes 03/20/2024 11:01 AM documented in this encounter [facility] Work Phone: 03-19-2024 History [...] 11:02 AM documented in this encounter [facility] Work Phone: 03-17-2024 History [...] 1:04 PM documented in this encounter [facility] Work Phone: 03-15-2024 History [...] time; no further questions. Transferred to the welcome desk agent to schedule appt for 03/17. Allyssa Robles 03/15/24 1:27 PM documented in this encounter [facility] Work Phone: 03-09-2024 History [...] Yes; PGT-M Test Ready: No ; Company: [employer] PGT order scanned into [employer], confirmed by: LORI on Plan to freeze: [...] on 03/09 by delano On site at [facility] Additional details: Allyssa Robles 03/09/2024 [...] 2:33 PM documented in this encounter [facility] Work Phone: 02-23-2024 Nurse Note Patient discharged to home in stable condition via wheelchair accompanied by this RN to RIDE HOME: Partner's car. Discharge instructions given and concerns addressed. Patient verbalizes understanding of all information provided and is agreeable. [facility] 02-23-2024 Nurse Note Patient [...] of bleeding. documented in this encounter [facility] Work Phone: 02-23-2024 Nurse Note Patient up to bathroom independently, no complaints of pain or dizziness, able to void without issue, reports scant amount of bleeding. [facility] Work Phone: 02-23-2024 History [...] diagnosis: Female infertility Post op diagnosis: Same Bilingual Speech Language Pathologist: none IV Fluids: 500 cc EBL: 5 cc UOP: Not recorded Specimen: Oocytes Complications: None Number of Oocytes right ovary: 17 Ovarian acc ss (right): Easy Number of Oocytes left ovary: 13 Ovarian access (left): Easy Endometrial thickness: n/a Needle type: Single Additional notes: documented in this encounter [facility] Work Phone: 02-23-2024 Hospital Discharge instructions Donya Rosas RN - 02/23/2024 7:23 AM EDT Images from the original note were not included. [facility] [address] [place] [id number] Home Going Instructions after Egg Retrieval: Activity: [...] 2 weeks following your oocyte retrieval. Call [phone] to speak with a Physician or Nurse if you have any concerns. DONYA ROSAS 7:23 AM [facility] [address] [place], [place] IVF LAB EMBRYO UPDATE PROTOCOL The [...] biopsied and frozen. DONYA ROSAS 7:23 AM [facility] [address] [place], [place] IVF LAB EMBRYO UPDATE PROTOCOL The [...] biopsied and frozen. DONYA ROSAS 7:23 AM [facility] [address] [place] [address] Frozen Embryo Transfer Instructions After your egg retrieval, follow up with your IVF nurse within 3-4 days Thursday-Thursday regarding the plan for your frozen embryo transfer (FET) cycle. Your IVF nurse will order and review with you the medications you will be using for the cycle. You will be sent an email from [employer] to fill out your Frozen Embryo Treatment [...] 7:32 AM documented in this encounter [facility] Work Phone: 02-21-2024 History [...] 9:09 AM documented in this encounter [facility] Work Phone: 02-20-2024 History [...] Judge RN documented in this encounter [facility] Work Phone: 02-18-2024 History [...] Judge RN documented in this encounter [facility] Work Phone: 02-16-2024 History [...] 1:34 PM documented in this encounter [facility] Work Phone: 02-09-2024 History [...] Yes; PGT-M Test Ready: No /A; Company: [employer] PGT order scanned into [employer], confirmed by: LORI on 02/09/2024 Plan to freeze: embryos [employer] forms/out waiver complete: Yes Does patient have medications onhand? Yes Pharmacy: [facility] signed off: Yes LORETTA on 02/05/2024 [...] 1:16 PM documented in this encounter [facility] Work Phone: 01-28-2024 Nurse Note Patient discharged to home in stable condition via wheelchair to RIDE HOME: Partner's car. Discharge instructions given and concerns addressed. [facility] Work Phone: 01-28-2024 Nurse Note Patient discharged to home in stable condition via wheelchair to RIDE HOME: Partner's car. Discharge instructions given and concerns addressed. documented in this encounter [facility] Work Phone: 01-28-2024 History [...] immediate complications documented in this encounter [facility] Work Phone: 01-28-2024 Hospital Discharge instructions Ira Lopez RN - 01/28/2024 8:20 AM EDT Images from the original note were not included. [facility] [address] [place] [address] Home Going Instructions after Polypectomy: Activity: We [...] 8:20 AM documented in this encounter [facility] Work Phone: 01-14-2024 History [...] nursing note reviewed. Exam conducted with a receptionist nurse present. Vitals: Estimated body mass index is [...] of: ORION Spence documented in this encounter [facility] 12-28-2023 History of Present illness Narrative [...] EVALUATION / TREATMENT Saw [facility] physician in [facility] Dr. 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 female who presents with Infertility TTC x 2 years PRIOR EVALUATION / TREATMENT Saw [facility] physician in [facility] Dr. 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 Meyer [phone] Recommend repeat SA with 48-72 hours abstinence [...] 8:52 AM documented in this encounter [facility] Work Phone: 2023 Instructions SMITH Mina - 2023 8:45 AM EDT Recommend Male Vitamins Discussed as follows: Co-Q10 200 mg daily L-Carnitine 200-500 mg daily Vitamin C 500 mg daily Recommend Consult with Dr. Meyer [phone] Recommend repeat SA with 48-72 hours abstinence Recommend Female Vitamins: vitamin Vitamin D (total of 2,000 international units daily) CoQ10 600 mg daily documented in this encounter [facility] Work Phone: 10-02-2023 Hospital [...] food choices, such as grocery stores and [employer]. What are the signs or symptoms? The [...] and how much exercise you get. Take tgnx-iwk-qylybot and prescription medicines only as told by [...] provider. Document Revised: 11/26/2021 Document Reviewed: 11/26/2021 [employer] Patient Education 2022 [employer]. 10/02/2023 12:54:15 BMI for Adults BMI for [...] numbers. This can be done either in [place] ([place] or metric measurements. Note that charts and online BMI calculators are available to help you find your BMI quickly and easily without having to do these calculations yourself. To calculate your BMI in [place] ([place] measurements: 1.Measure your weight in pounds [...] Centers for Disease Control and Prevention: www.cdc.gov [place] [employer]: www.heart.org National Heart, Lung, and Blood [place]: www.nhlbi.nih.gov Summary Body mass index (BMI) is a number that is calculated from a person's weight and height. BMI may help estimate how much of a person's weight is composed of fat. BMI can help identify those who may be at higher risk for certain medical problems. BMI can be measured using [place] measurements or metric measurements. BMI charts are used to identify whether you are underweight, normal weight, overweight, or obese. This information is not intended to replace advice given to you by your health care provider. Make sure you discuss any questions you have with your health care provider. Document Revised: 01/11/2020 Document Reviewed: 11/18/2019 [employer] Patient Education 2022 [employer]. 10/02/2023 12:54:13 Migraine Headache Migraine Headache A [...] Follow these instructions at home: Medicines Take ueqr-csy-loeuynk and prescription medicines only as told by your health care provider. Ask your health care provider if the medicine prescribed to you: ?Requires you to avoid driving or using heavy machinery. ?Can cause constipation. You may need to take these actions to prevent or treat constipation: ?Drink enough fluid to keep your urine pale yellow. ?Take rswo-jxf-xrtcakl or prescription medicines. ?Eat foods that are [...] provider. Document Revised: 08/12/2019 Document Reviewed: 06/02/2019 [employer] Patient Education 2022 [employer]. 10/02/2023 12:54:11 Form - Headache Record Form [...] these instructions at home: Take or apply ayyk-ujr-ojflrdo and prescription medicines only as told by your health care provider. Use creams or ointments to moisturize your skin. Do not use lotions. Learn what triggers or irritates your symptoms so you can avoid these things. Treat symptom flare-ups quickly. Do not scratch your skin. This can make your rash worse. Keep all follow-up visits. This is important. Where to find more information [place] [employer]: aad.org National Eczema Association: [...] provider. Document Revised: 01/28/2021 Document Reviewed: 01/28/2021 [employer] Patient Education 2022 [employer]. 10/02/2023 12:54:06 BMI for Adults BMI for [...] numbers. This can be done either in [place] ([place] or metric measurements. Note that charts and online BMI calculators are available to help you find your BMI quickly and easily without having to do these calculations yourself. To calculate your BMI in [place] ([place] measurements: 1.Measure your weight in pounds [...] Centers for Disease Control and Prevention: www.cdc.gov [place] [employer]: www.heart.org National Heart, Lung, and Blood [place]: www.nhlbi.nih.gov Summary Body mass index (BMI) is a number that is calculated from a person's weight and height. BMI may help estimate how much of a person's weight is composed of fat. BMI can help identify those who may be at higher risk for certain medical problems. BMI can be measured using [place] measurements or metric measurements. BMI charts are used to identify whether you are underweight, normal weight, overweight, or obese. This information is not intended to replace advice given to you by your health care provider. Make sure you discuss any questions you have with your health care provider. Document Revised: 01/11/2020 Document Reviewed: 11/18/2019 [employer] Patient Education 2022 [employer]. Follow Up Care 09/22/2023 13:18:17 With:Princess Dumont FAM, MED Address: Deborah Schrader, [address] [address]- Business (1) When:07/08/2023 Comments:for f/u [facility] 08-27-2023 Hospital Discharge instructions [...] 1.Identify the foods that contain carbohydrates: Rice. [place]. Milk. Strawberries. 2.Calculate how many servings you [...] and snacks. Where to find more information [place] [employer]: diabetes.org Centers for Disease Control [...] provider. Document Revised: 11/21/2020 Document Reviewed: 11/21/2020 [employer] Patient Education 2022 [employer] 08/27/2023 19:11:56 Calorie Counting for Weight [...] provider. Document Revised: 05/31/2020 Document Reviewed: 05/31/2020 [employer] Patient Education 2022 [employer]. 08/27/2023 19:11:54 Exercising to Lose Weight Exercising [...] health care provider or diet and nutrition coordinator (dietitian). This may include: ?Eating fewer calories. [...] right away. Call your local emergency services ([address] in the [place] Do not drive yourself [...] provider. Document Revised: 06/16/2021 Document Reviewed: 06/16/2021 [employer] Patient Education 2022 [employer]. 08/27/2023 19:11:53 BMI for Adults BMI for [...] numbers. This can be done either in [place] ([place] or metric measurements. Note that charts and online BMI calculators are available to help you find your BMI quickly and easily without having to do these calculations yourself. To calculate your BMI in [place] ([place] measurements: 1.Measure your weight in pounds [...] Centers for Disease Control and Prevention: www.cdc.gov [place] [employer]: www.heart.org National Heart, Lung, and Blood [place]: www.nhlbi.nih.gov Summary Body mass index (BMI) is a number that is calculated from a person's weight and height. BMI may help estimate how much of a person's weight is composed of fat. BMI can help identify those who may be at higher risk for certain medical problems. BMI can be measured using Trinid[place] measurements or metric measurements. BMI charts are used to identify whether you are underweight, normal weight, overweight, or obese. This information is not intended to replace advice given to you by your health care provider. Make sure you discuss any questions you have with your health care provider. Document Revised: 01/11/2020 Document Reviewed: 11/18/2019 [employer] Patient Education 2022 [employer]. 08/27/2023 19:11:48 Musculoskeletal Pain Musculoskeletal Pain Musculoskeletal [...] mouth or applied to the skin. Take yvep-oyo-jwkwyuq and prescription medicines only as told by [...] provider. Document Revised: 08/23/2020 Document Reviewed: 08/01/2020 [employer] Patient Education 2022 [employer]. 08/27/2023 19:05:09 Cervicogenic Headache Cervicogenic Headache In [...] includes your primary health care provider, a paint mixer, a neurologist, and a physical therapist. Follow these instructions at home: Take qywy-vhl-ebtqvbb and prescription medicines only as told by [...] includes your primary health care provider, a paint mixer, a neurologist, and a physical therapist. This information is not intended to replace advice given to you by your health care provider. Make sure you discuss any questions you have with your health care provider. Document Revised: 10/24/2021 Document Reviewed: 10/24/2021 [employer] Patient Education 2022 [employer] 08/27/2023 19:05:07 Form - Headache Record [...] Follow these instructions at home: Medicines Take qbtp-nip-vsmnyfs and prescription medicines only as told by [...] for Headache and Migraine Patients (CHAMP): headachemigraine.org [place] [employer]: americanmigrainefoundation.org National Headache Foundation: headaches.org [...] provider. Document Revised: 06/06/2020 Document Reviewed: 06/06/2020 [employer] Patient Education 2022 [employer]. 08/27/2023 19:05:03 BMI for Adults BMI for [...] numbers. This can be done either in [place] ([place] or metric measurements. Note that charts and online BMI calculators are available to help you find your BMI quickly and easily without having to do these calculations yourself. To calculate your BMI in [place] ([place] measurements: 1.Measure your weight in pounds [...] Centers for Disease Control and Prevention: www.cdc.gov [place] [employer]: www.heart.org National Heart, Lung, and Blood [place]: www.nhlbi.nih.gov Summary Body mass index (BMI) is a number that is calculated from a person's weight and height. BMI may help estimate how much of a person's weight is composed of fat. BMI can help identify those who may be at higher risk for certain medical problems. BMI can be measured using Trinid[place] measurements or metric measurements. BMI charts are used to identify whether you are underweight, normal weight, overweight, or obese. This information is not intended to replace advice given to you by your health care provider. Make sure you discuss any questions you have with your health care provider. Document Revised: 01/11/2020 Document Reviewed: 11/18/2019 [employer] Patient Education 2022 [employer]. 08/27/2023 19:05:01 Health Maintenance, Female Health Maintenance, [...] provider. Document Revised: 09/09/2021 Document Reviewed: 09/09/2021 [employer] Patient Education 2022 [employer]. Follow Up Care 08/17/2023 08:42:02 With:Princess Dumont FAM, MED Address: Deborah Schrader, [facility] [address] [address]- When:Within 6 Week(s) Comments:weight loss and headaches [facility] 02-19-2023 Evaluation + Plan note Future Scheduled TestsU Protein/Creat Ratio 02/19/23HgbA1c 02/19/23Microalbumin Level Urine 02/19/23TSH With T4fr Reflex 02/19/23Vitamin D 25 Hydroxy 02/19/23CBC w/ Auto Diff 02/19/23Comprehensive Metabolic Panel 02/19/23Lipid Panel 02/19/23XR Spine Cervical 4 or 5 Views 02/19/[address] [facility] 02-19-2023 Hospital Discharge instructions [...] includes your primary health care provider, a paint mixer, a neurologist, and a physical therapist. Follow these instructions at home: Take grgf-kfp-grzodip and prescription medicines only as told by [...] includes your primary health care provider, a paint mixer, a neurologist, and a physical therapist. This information is not intended to replace advice given to you by your health care provider. Make sure you discuss any questions you have with your health care provider. Document Revised: 10/24/2021 Document Reviewed: 10/24/2021 [employer] Patient Education 2022 [employer]. 02/19/2023 08:34:09 Migraine Headache Migraine Headache A [...] Follow these instructions at home: Medicines Take cywd-edk-izacxfi and prescription medicines only as told by your health care provider. Ask your health care provider if the medicine prescribed to you: ?Requires you to avoid driving or using heavy machinery. ?Can cause constipation. You may need to take these actions to prevent or treat constipation: ?Drink enough fluid to keep your urine pale yellow. ?Take esqp-nzr-qblduek or prescription medicines. ?Eat foods that are [...] provider. Document Revised: 09/18/2021 Document Reviewed: 09/18/2021 [employer] Patient Education 2022 [employer] 02/19/2023 01:02:45 General Headache Without Cause [...] help with your condition: Managing pain Take lonf-dmr-ehejytn and prescription medicines only as told by [...] provider. Document Revised: 09/18/2021 Document Reviewed: 09/18/2021 [employer] Patient Education 2022 [employer] 02/19/2023 01:02:42 Form - Headache Record [...] provider. Document Revised: 09/18/2021 Document Reviewed: 09/18/2021 [employer] Patient Education 2022 [employer]. 02/19/2023 01:02:37 Cervicogenic Headache Cervicogenic Headache In [...] includes your primary health care provider, a paint mixer, a neurologist, and a physical therapist. Follow these instructions at home: Take fixa-sri-ryneejp and prescription medicines only as told by [...] includes your primary health care provider, a paint mixer, a neurologist, and a physical therapist. This information is not intended to replace advice given to you by your health care provider. Make sure you discuss any questions you have with your health care provider. Document Revised: 10/24/2021 Document Reviewed: 10/24/2021 [employer] Patient Education 2022 [employer]. 02/19/2023 01:02:35 Chronic Migraine Headache Chronic Migraine [...] Follow these instructions at home: Medicines Take zxoh-tgf-bwkrlqo and prescription medicines only as told by [...] for Headache and Migraine Patients (CHAMP): headachemigraine.org [place] [employer] Foundation: americanmigrainefoundation.org National Headache Foundation: headaches.org [...] provider. Document Revised: 06/06/2020 Document Reviewed: 06/06/2020 [employer] Patient Education 2022 [employer]. Follow Up Care 02/17/2023 08:10:14 With:Princess Dumont FAM, [place] Address: [address] [place] [address]- When:Within 1 Month(s) Comments:headaches. neck pain With:Princess Dumont FAM, MED Address: [address] [place] [address]- When:Within 1 Year(s) Comments:annual wellness, anxiety/ depression [facility] 07-24-2021 Hospital Discharge instructions [...] height. This can be done either in [place] ([place] or metric measurements. Note that charts are available to help you find your BMI quickly and easily without having to do these calculations yourself. To calculate your BMI in [place] ([place] measurements, your health care provider will: [...] medical problems. BMI can be measured using [place] measurements or metric measurements. To interpret your [...] 12/30/2004 Document Revised: 04/02/2018 Document Reviewed: 03/03/2018 [employer] Patient Education 2020 [employer]. 07/24/2021 17:16:58 Health Maintenance, Female Health Maintenance, [...] 11/03/2011 Document Revised: 04/13/2019 Document Reviewed: 04/13/2019 [employer] Patient Education 2020 [employer] Follow Up Care 06/26/2021 18:00:45 With:Leigh Ann Covington CNP Address: When: only if needed [facility] Evaluation + Plan note Future Appointments Appointment Date:10/03/2021 01:00:00 PM Scheduled Provider:Naya ABDI Location:[facility] Appointment Type:[facility] Evaluation + Plan note Future Appointments Appointment Date:03/25/2023 07:00:00 AM Scheduled Provider:Princess Dumont Location:[facility] Appointment Type: Open Future Scheduled TestsU Protein/Creat Ratio 02/19/23HgbA1c 02/19/23Microalbumin Level Urine 02/19/23TSH With T4fr Reflex 02/19/23Vitamin D 25 Hydroxy 02/19/23CBC w/ Auto Diff 02/19/23Comprehensive Metabolic Panel 02/19/23Lipid Panel 02/19/23XR Spine Cervical 4 or 5 Views 02/19/[address] [facility] Evaluation + Plan note Future Appointments Appointment Date:10/21/2023 07:20:00 AM Scheduled Provider:Princess Dumont Location:[facility] Appointment Type: Open Future Scheduled TestsTSH With T4fr Reflex 02/19/23Vitamin D 25 Hydroxy 02/19/23CBC w/ Auto Diff 02/19/23Comprehensive Metabolic Panel 02/19/23Lipid Panel 02/19/23XR Spine Cervical 4 or 5 Views 02/19/[address] [facility] Evaluation + Plan note Future Appointments Appointment Date:10/05/2024 07:00:00 AM Scheduled Provider:Mallory Judd Location:[facility] Appointment Type: Open [facility] Evaluation note Diagnosis Endometrial polyp Polyp of corpus uteri documented in this encounter [facility] Work Phone: Evaluation note* Diagnosis Pre-procedure lab exam Pre-procedural laboratory examination Female infertility Female infertility of unspecified origin documented in this encounter [facility] Work Phone: Evaluation note* Diagnosis Female infertility Female infertility of unspecified origin documented in this encounter [facility] Work Phone: Evaluation note* Diagnosis Female infertility Female infertility of unspecified origin documented in this encounter [facility] Work Phone: [phone] note* Diagnosis Encounter for assisted reproductive fertility cycle Encounter for assisted reproductive fertility procedure cycle documented in this encounter [facility] Work Phone: [phone] note* Diagnosis Female infertility Female infertility of unspecified origin Pre-procedure lab exam Pre-procedural laboratory examination documented in this encounter [facility] Work Phone: [phone] note* Diagnosis Female infertility Female infertility of unspecified origin documented in this encounter [facility] Work Phone: [phone] note* Diagnosis Female infertility Female infertility of unspecified origin documented in this encounter [facility] Work Phone: [phone] note* Diagnosis Female infertility Female infertility of unspecified origin documented in this encounter [facility] Work Phone: [phone] note* Diagnosis Encounter for assisted reproductive fertility cycle Encounter for assisted reproductive fertility procedure cycle documented in this encounter [facility] Work Phone: [phone] note* Diagnosis Encounter for assisted reproductive fertility cycle Encounter for assisted reproductive fertility procedure cycle documented in this encounter [facility] Work Phone: [phone] note* Diagnosis Well woman exam with routine gynecological exam Routine gynecological examination documented in this encounter [facility]* Diagnosis Encounter for screening for other viral diseases- Primary Encounter for Rh blood typing Encounter for blood typing Screening for STDs (sexually transmitted diseases) Screening examination for venereal disease Genetic screening Other genetic screening Fertility testing Female infertility associated with male factors Female infertility of other specified origin documented in this encounter [facility] Work Phone: [phone] note* Diagnosis Fertility testing [Z31.41]- Primary Fertility testing 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 [Z31.81, N97.8] documented in this encounter [facility] Work Phone: [phone] note* Diagnosis Endometrial polyp Polyp of corpus uteri documented in this encounter [facility] Work Phone: [phone] note* Diagnosis Female infertility Female infertility of unspecified origin documented in this encounter [facility] Work Phone: Evaluation note* Diagnosis Encounter for assisted reproductive fertility cycle Encounter for assisted reproductive fertility procedure cycle documented in this encounter [facility] Work Phone: Evaluation note* Diagnosis Encounter for assisted reproductive fertility cycle Encounter for assisted reproductive fertility procedure cycle Encounter for test, result unknown documented in this encounter [facility] Work Phone: Evaluation note* Diagnosis Encounter to determine viability of , single or unspecified fetus documented in this encounter [facility] Work Phone: Evaluation note* [...] Diagnosis (HHS-HCC) documented in this encounter [facility] Work Phone: Evaluation note* [...] No data available for this section [facility] Hospital Discharge instructions No data available for this section [facility] Progress note No data available for this section [facility] Reason for referral (narrative)* Consultation (Routine) - Authorized Specialty Diagnoses / Procedures Referred By Alejandro hyatt Referred To Contact Genetics Diagnoses Genetic screening Trish Thorpe APRN-CNP [address] [id number] Referral ID Status Reason Start Date Expiration Date Visits Requested Visits Authorized [id number] Authorized Specialty Services Required 2023 12/10/2024 1 1 [facility] Work Phone: Reason for visit Narrative* Imaging (Routine) - Authorized Specialty Diagnoses / Procedures Referred By Alejandro hyatt Referred To Contact Radiology Diagnoses Female infertility Procedures KELSY US Pelvis Limited Follicles - Follicle Studies Performed America Chavez APRN-MONITOR WORKER [address] [place] [address] Phone: tel: fax: Referral ID Status Reason Start Date Expiration Date Visits Requested Visits Authorized [id number] Authorized Perform Procedure 02/02/2024 02/01/2025 8 8 [facility] Work Phone: Reason for visit Narrative* Imaging (Routine) - Pending Review Specialty Diagnoses / Procedures Referred By Contac t Referred To Contact Radiology Diagnoses Female infertility Procedures KELSY US Pelvis Limited Follicles - Follicle Studies Performed America Chavez, GOAL UMPIRE-MONITOR WORKER [address] [place] [address] Phone: tel: fax: Referral ID Status Reason Start Date Expiration Date Visits Requested Visits Authorized [id number] Pending Review Perform Procedure 02/02/2024 02/01/2025 8 8 [facility] Work Phone: reason for visit Narrative* Procedure (Routine) - Authorized Specialty Diagnoses / Procedures Referred By Contac t Referred To Contact Reproductive Endocrinology and Infertility Diagnoses Encounter for assisted reproductive fertility cycle Procedures Egg Retrieval AZ FOLLICLE PUNCTURE OOCYTE RETRIEVAL ANY METHOD CHG US GUIDANCE ASPIRATION OVA IMG S&I CHG OOCYTE ID FROM FOLLICULAR FLU CHG BX OOCYTE POLR BDY/AMBER BLST MICROTQ <= 5 AMBER CHG BX OOCYTE MICROTQ >5 AMBER CHG UNLISTED MOLECULAR PATHOLOGY PROCEDURE CHG CYTOGENETICS&MOLEC CYTOGENETICS INTERP&REP Beth Warren MD [address] [place] [address] Phone: tel: fax: Referral ID Status Reason Start Date Expiration Date V isits Requested Visits Authorized [id number] Authorized 01/27/2024 01/26/2025 1 1 [facility] Work Phone: reason for visit Narrative* Imaging (Routine) - Authorized Specialty Diagnoses / Procedures Referred By Contac t Referred To Contact Radiology Diagnoses Female infertility Procedures KELSY US Pelvis Limited Follicles - Follicle Studies Performed Donya Abernathy, GOAL UMPIRE-MONITOR WORKER [address] [facility], Alexia Hay, [address] [address] Phone: tel: fax: Referral ID Status Reason Start Date Expiration Date Visits Requested Visits Authorized [id number] Authorized Perform Procedure 4 03/01/2025 8 8 [facility] Work Phone: reason for visit Narrative* Procedure (Routine) - Authorized Specialty Diagnoses / Procedures Referred By Alejandro t Referred To Contact Reproductive Endocrinology and Infertility Diagnoses Encounter for assisted reproductive fertility cycle Procedures Egg Retrieval [place] FOLLICLE PUNCTURE OOCYTE RETRIEVAL ANY METHOD CHG US GUIDANCE ASPIRATION OVA IMG S&I CHG OOCYTE ID FROM FOLLICULAR FLU CHG BX OOCYTE POLR BDY/AMBER BLST MICROTQ <= 5 AMBER CHG BX OOCYTE MICROTQ >5 AMBER CHG UNLISTED MOLECULAR PATHOLOGY PROCEDURE CHG CYTOGENETICS&MOLEC CYTOGENETICS INTERP&REP Donya Abernathy, GOAL UMPIRE-MONITOR WORKER [address] [facility], [place] [address] Phone: tel: fax: Referral ID Status Reason Start Date Expiration Date V isits Requested Visits Authorized [id number] Authorized 03/01/2024 03/01/2025 1 0 [facility] Work Phone: reason for visit Narrative* Imaging (Routine) - Authorized Specialty Diagnoses / Procedures [facility] Referred To Contact Radiology Diagnoses Female infertility Procedures KELSY US Endometrial Lining Check Donya Abernathy, GOAL UMPIRE-MONITOR WORKER [address] [facility], [place] [address] Phone: tel: fax: Referral ID Status Reason Start Date Expiration Date Visits Requested Visits Authorized [id number] Authorized Perform Procedure 4 02/23/2025 5 5 [facility] Work Phone: reason for visit Narrative* Procedure (Routine) - Authorized Specialty Diagnoses / Procedures [facility] Referred To Contact Reproductive Endocrinology and Infertility Diagnoses Encounter for assisted reproductive fertility cycle Procedures Embryo Transfer AZ EMBRYO TRANSFER INTRAUTERINE CHG ULTRASONIC GUIDANCE INTRAOPERATIVE CHG THAWING CRYOPRESERVED EMBRYO CHG ASSTD EMBRYO HATCHING MICROTQS ANY METH CHG PREPJ EMBRYO TR Juan Chavarria MD [address], [address] [place] [address] Phone: tel: fax: Referral ID Status Reason Start Date Expiration Date V isits Requested Visits Authorized [id number] Authorized 06/10/2024 06/10/2025 1 1 [facility] Work Phone: Reason for visit Narrative* Imaging (Routine) - Authorized Specialty Diagnoses / Procedures Referred By Alejandro t Referred To Contact Radiology Diagnoses ([facility]) Procedures US OB detail anatomy Layo Courtney, [address] [facility] [address], [place] [address] Phone: tel: fax: Referral ID Status Reason Start Date Expiration Date Visits Requested Visits Authorized [id number] Authorized Perform Procedure 08/15/2024 08/15/2025 1 1 [facility] Work Phone: Summary Purpose [...] Chavarria MD [address], [address] [place] [address] MY[address] [place] [address] Referral ID Status Reason Start Date Expiration Date V isits Requested Visits Authorized [id number] Authorized 01/25/2024 01/24/2025 1 1 Additional Source Comments INFORMATION SOURCE (unrecogn ized section and content) DATE CREATED AUTHOR 08/01/2022 [facility] DATE CREATED AUTHOR AUTHOR'S ORGANIZ ATION 04/04/2024 [facility] DATE CREATED AUTHOR AUTHOR'S ORGANIZ ATION 06/15/[address] [facility] DATE CREATED AUTHOR AUTHOR'S ORGANIZ ATION 07/02/2024 [facility] DATE CREATED AUTHOR AUTHOR'S ORGANIZ ATION 07/14/2024 [facility] DATE CREATED AUTHOR AUTHOR'S ORGANIZ ATION 10/11/2024 [facility] DATE CREATED AUTHOR AUTHOR'S ORGANIZ ATION 02/10/2025 [facility] EPIC Patient Care team informatio n (unrecognized section and content) Clipper Automatic Relationship Specialty Start Date End Date Allyssa Robles RN Registered Nurse Reproductive Endocrinology and Infertility 12/25/23 Clipper Automatic Relationship Specialty Start Date End Date Allyssa Robles RN Registered Nurse Reproductive Endocrinology and Infertility 12/25/23 Clipper Automatic Relationship Specialty Start Date End Date Allyssa Robles RN Registered Nurse Reproductive Endocrinology and Infertility 12/25/23 Clipper Automatic Relationship Specialty Start Date End Date Allyssa Robles RN Registered Nurse Reproductive Endocrinology and Infertility 12/25/23 Clipper Automatic Relationship Specialty Start Date End Date Allyssa Robles RN Registered Nurse Reproductive Endocrinology and Infertility 12/25/23 Clipper Automatic Relationship Specialty Start Date End Date Allyssa Robles RN Registered Nurse Reproductive Endocrinology and Infertility 12/25/23 Clipper Automatic Relationship Specialty Start Date End Date Allyssa Robles RN Registered Nurse Reproductive Endocrinology and Infertility 12/25/23 Clipper Automatic Relationship Specialty Start Date End Date Allyssa Robles RN Registered Nurse Reproductive Endocrinology and Infertility 12/25/23 Clipper Automatic Relationship Specialty Start Date End Date Allyssa Robles RN Registered Nurse Reproductive Endocrinology and Infertility 12/25/23 Clipper Automatic Relationship Specialty Start Date End Date Ginger Torres LPN Licensed Practical Nurse 12/10/23 Clipper Automatic Relationship Specialty Start Date End Date Allyssa Robles RN Registered Nurse Reproductive Endocrinology and Infertility 12/25/23 Clipper Automatic Relationship Specialty Start Date End Date Allyssa Robles RN Registered Nurse Reproductive Endocrinology and Infertility 12/25/23 Clipper Automatic Relationship Specialty Start Date End Date Allyssa Robles RN Registered Nurse Reproductive Endocrinology and Infertility 12/25/23 Clipper Automatic Relationship Specialty Start Date End Date Allyssa Robles, RN Registered Nurse Reproductive Endocrinology and Infertility 12/25/23 Clipper Automatic Relationship Specialty Start Date End Date Allyssa Robles RN Registered Nurse Reproductive Endocrinology and Infertility 12/25/23 Reason for Visit (unrecogniz ed section and content) Specialty Diagnoses / Procedures Referred By Alejandro hyatt Referred To Contact Diagnoses Endometrial polyp Procedures Polypectomy Juan Chavarria MD [address] [facility] Alexia Hay, [address] [place] [address] MYLES Hay [address] [place] [address] Referral ID Status Reason Start Date Expiration Date V isits Requested Visits Authorized [id number] Authorized 01/25/2024 01/24/2025 1 1 Specialty Diagnoses / Procedures Referred By Alejandro hyatt Referred To Contact Radiology Diagnoses Female infertility Procedures KELSY US Pelvis Limited Follicles - Follicle Studies Performed America Chavez, [employer] [address] [place] [address] Referral ID Status Reason Start Date Expiration Date Visits Requested Visits Authorized [id number] Authorized Perform Procedure 02/02/2024 02/01/2025 8 8 [...] BE BASED ON THE PRIMARY CLINICAL RECORDS. [facility] [employer] provides no warranty or guarantee of the accuracy or completeness of information in this document.
== END 2025-02-14 17:15 | disposition home or self-care (01) ==
LOC: US 15:42 → FBC 15:46
PROVIDERS: Visit Provider Obstetrics & Gynecology
DX: O09.813 Supervision of pregnancy resulting from assisted reproductive technology, third trimester (principal); Z3A.37 37 weeks gestation of pregnancy
CPT/HCPCS: 76818

== ENCOUNTER 2025-02-17 18:40 | Inpatient (IN) | payer OTHER, SELFPAY ==
[2025-02-17] VITALS (20 sets, daily range): BP systolic 93–143; BP diastolic 54–97; PULSE 92–146; TEMP 35.9–36.1
--- OUTSIDE RECORDS SUMMARY | 2025-02-17 16:06 | XMS_ITS | CCD ---
Author Organization [facility] Care Team Providers Care Licensed Insurance Sales Agent Name Role Phone Rachana LYONS Primary Care [...] LAYO Attending Unavailable SHERWIN, LAYO Attending Unavailable CESAR, YOMAIRA Attending Unavailable CESAR, YOMAIRA Attending Unavailable SHERWIN, LAYO Attending Unavailable Allergies Allergy Classification Reported Allergen(s) Allergy Type Date of Onset Reaction(s) Facility (20 sources) Azithromycin; Translations: [azithromycin] Drug Allergy 03-16-2023 Unknown (qualifier value), Unknown [facility] Work Phone: (20 sources) Latex; Translations: [Latex] Drug allergy 03-16-2023 Rash [facility] Work Phone: (20 sources) nickel; Translations: [Nickel] Drug Allergy 03-16-2023 Rash, Itching [facility] Work Phone: Medications Current [...] Do not use to face, armpits, groin., [facility] 1985, 160, cm, 07/24/21 17:02:00 EDT, Height/Length Dosing, 71.6, kg, 07/24/21 17:02:00 EDT, Weight Dosing Start Date: 02/10/22 Status: Ordered Start: 01-29-2021 clobetasol pro pionate 0.05% top oint 1 bonifacio, Topical, BID, 45 gram, Refill(s) 1, [facility] 1985, 160, cm, 01/29/21 16:48:00 EDT, [...] Refill(s) 6, Therapeutic tx; may refill early, [facility] 1986, 160, cm, 09/27/20 16:16:00 EDT, [...] Refill(s) 6, Therapeutic tx; may refill early, [facility] 1986, 160, cm, 09/27/20 16:16:00 EDT, [...] of in second trimester ([facility]) Day 1: 6 tablets Day 2: 5 tablets Day 3: 4 tablets Day 4: 3 tablets Day 5: 2 tablets Day 6: 1 tablet 21 tablet 10/04/2024 12/06/2024 Discontinued Start: 10-04-2024 methylPREDNISo lone (Medrol Dospak) 4 MG tablets Indications: Pruritus of in second trimester ([facility]) Day 1: 6 tablets Day 2: 5 [...] hour of each main meal containing fat, [facility] 1986, 160, cm, 07/24/21 17:02:00 EDT, Height/Length [...] Take 1 each by mouth Daily Active bayjyxdr41-jifr-zzp ic-omega3 29-1-400 mg combo pack,tablet and cap,DR (14 sources) autriabf22-aged- f olic-omega3 29-1-400 mg combo pack,tablet and [...] [36 weeks gestation of ] 02-07-2025 Episodic Residual codes; unclassified (2 sources) Gestation period, 37 weeks; Translations: [37 weeks gestation of ] 02-14-2025 Episodic Screening and history of mental health [...] Range Facility Urinalysis macro (dipstick) panel (U)on 02-14-2025 Bilirubin, UA Negative Negative - 4(70) +++ [...] Onel/mcL [facility] Comment on above: 2+ Nitrite, UA Negative Negative - Positive [facility] pH, UA 6.0 5 - 9 [facility] Protein, UA Negative Negative - 2000(20) ++++ mg/dL [facility] Spec Grav, UA 1.015 1 - 1.03 [facility] Urobilinogen, UA 0.2 0.2 - 12 mg/dL [facility] US OB BPP W NON-STRESS on 02-07-2025 [place] [address] Ultrasound Report Signed Patient: SYDNEY ROMERO MR#: [id number] : 1995 Acct:[id number] Age/Sex: 29 / F ADM Date: 02/07/25 Loc: [facility] 254-[address]: Layo Courtney D.O. Ordering Physician: Layo Courtney D.O. Date of Service: 02/07/25 Procedure(s): US OB BPP w non-stress Accession Number(s): [id number] cc: Layo Courtney D.O.; Physician,Non-Staff M.DBetito The [address] [address] Patient Name: SYDNEY ROMERO MRN: [facility]:[id number] date: 1995 Sex: F Assigned Patient Location: [facility] Current Patient Location: [facility] Accession/Order Number: [id number] Exam Date: 02/07/2025 14:45 Report Date: 02/07/2025 16:05 At the request of: LAYO COURTNEY DO Procedure: US OB BPP w non-stress Ultrasound biophysical profile INDICATION: IVF FINDINGS: The yarn carrier reports a BPP of 8 out of 8 LONNY is normal at 10.6 cm. heart rate 147. Heterogeneous appearance of the placenta hypoechoic focus measuring 2.4 x 1.9 x 1.6 cm in size. US/US OB BPP w non-stress IMPRESSION: BPP 8 out of 8. Impression dictated by: Bernabe Romero M.D. 02/07/2025 4:05 PM Dictation Location: [place] [address] Electronically authenticated by: [id number] Y Date: 02/07/2025 16:05 Dictated By: Bernabe Romero M.D. Signed By: 02/07/251606 DD/ 04 TD/TT: Director Emergency Department: [facility] Radiology, Radiologist, MD - 02/07/2025 [place] [address] Ultrasound Report Signed Patient: SYDNEY ROMERO MR#: [id number] : 1995 Acct:[id number] Age/Sex: 29 / F ADM Date: 02/07/25 Loc: [facility] 254-[address]: Layo Courtney D.O. Ordering Physician: Layo Courtney D.O. Date of Service: 02/07/25 Procedure(s): US OB BPP w non-stress Accession Number(s): [id number] cc: Layo Courtney D.O.; Physician,Non-Staff Steven The [place] [id number] Patient Name: SYDNEY ROMERO MRN: [facility]:[id number] date: 1995 Sex: F Assigned Patient Location: [facility] Current Patient Location: [facility] Accession/Order Number: [id number] Exam Date: 02/07/2025 14:45 Report Date: 02/07/2025 16:05 At the request of: LAYO COURTNEY DO Procedure: US OB BPP w non-stress Ultrasound biophysical profile INDICATION: IVF FINDINGS: The yarn carrier reports a BPP of 8 out of 8 LONNY is normal at 10.6 cm. heart rate 147. Heterogeneous appearance of the placenta hypoechoic focus measuring 2.4 x 1.9 x 1.6 cm in size. US/US OB BPP w non-stress IMPRESSION: BPP 8 out of 8. Impression dictated by: Bernabe Romero M.D. 02/07/2025 4:05 PM Dictation Location: [place] [address] Electronically authenticated by: [id number] Y Date: 02/07/2025 16:05 Dictated By: Bernabe Romero M.D. Signed By: 02/07/251606 DD/ 04 TD/TT: Director Emergency Department: [facility] Radiology Study observation (narrative) [...] [facility] Protein, UA Trace Negative - 2000(20) ++++ mg/dL [facility] Spec Grav, UA 1.015 1 - 1.03 [facility] Urobilinogen, UA 2.0 0.2 - 12 mg/dL [facility] No Panel InformationOrdered By: Radiologist Radiology on 02-01-2025 [facility] Work Phone: No Panel Informationon 02-01 Radiology Study observation (narrative) [facility] US OB BPP W NON-STRESS on 02-01-2025 [place] [address] Ultrasound Report Signed Patient: SYDNEY ROMERO MR#: [id number] : 1995 Acct:[id number] Age/Sex: 29 / F ADM Date: 01/31/25 Loc: US Attending Dr: Layo Courtney D.O. Ordering Physician: Layo Courtney D.O. Date of Service: 01/31/25 Procedure(s): US OB BPP w non-stress Accession Number(s): [id number] cc: Layo Courtney D.O.; Physician,Non-Staff M.DBetito The [place] [address] Patient Name: SYDNEY ROMERO MRN: [facility]:[id number] date: 1995 Sex: F Assigned Patient Location: Current Patient Location: LAB Accession/Order Number: [id number] Exam Date: 01/31/2025 15:22 Report Date: 02/01/2025 [...] [place] M.D. 02/01/2025 9:21 AM Dictation Location: [place] [address] Electronically authenticated by: [id number] Y Date: 02/01/2025 09:21 Dictated By: Mariela Toledo M.D. Signed By: 02/01/25923 DD/ 0 TD/TT: Director Emergency Department: [facility] Radiology, Radiologist, - 02/01/2025 [place] [address] Ultrasound Report Signed Patient: SYDNEY ROMERO MR#: [id number] : 1995 Acct:[id number] Age/Sex: 29 / F ADM Date: 01/31/25 Loc: US Attending Dr: Layo Courtney D.O. Ordering Physician: Layo Courtney D.O. Date of Service: 01/31/25 Procedure(s): US OB BPP w non-stress Accession Number(s): [id number] cc: Layo Courtney D.O.; Physician,Non-Staff Steven The [place] [id number] Patient Name: SYDNEY ROMERO MRN: [facility]:[id number] date: 1995 Sex: F Assigned Patient Location: US Current Patient Location: LAB Accession/Order Number: [id number] Exam Date: 01/31/2025 15:22 Report Date: 02/01/2025 [...] [place] M.D. 02/01/2025 9:21 AM Dictation Location: [place] [address] Electronically authenticated by: [id number] Y Date: 02/01/2025 09:21 Dictated By: Mariela [place] M.D. Signed By: 02/01/25923 DD/ 0 TD/TT: Director Emergency Department: [facility] OB GROWTHon 02-01-2025 [place] [address] Ultrasound Report Signed Patient: SYDNEY ROMERO MR#: [id number] : 1995 Acct:[id number] Age/Sex: 29 / F ADM Date: 01/31/25 Loc: US Attending Dr: Layo Courtney D.O. Ordering Physician: Layo Courtney D.O. Date of Service: 01/31/25 Procedure(s): US OB growth Accession Number(s): [id number] cc: Layo Courtney D.O.; Physician,Non-Staff Steven [place] [address] Patient Name: SYDNEY ROMERO MRN: [facility]:[id number] date: 1995 Sex: F Assigned Patient Location: [facility] Current Patient Location: LAB Accession/Order Number: [id number] Exam Date: 01/31/2025 15:22 Report Date: 02/01/2025 [...] [place] M.D. 02/01/2025 9:21 AM Dictation Location: [place] [address] Electronically authenticated by: [id number] Y Date: 02/01/2025 09:21 Dictated By: Mariela [place] M.D. Signed By: 02/01/25923 DD/ 0 TD/TT: Director Emergency Department: [facility] Radiology, Radiologist, MD - 02/01/2025 [place] [address] Ultrasound Report Signed Patient: SYDNEY ROMERO MR#: [id number] : 1995 Acct:[id number] Age/Sex: 29 / F ADM Date: 01/31/25 Loc: US Attending Dr: Layo Courtney D.O. Ordering Physician: Layo Courtney D.O. Date of Service: 01/31/25 Procedure(s): US OB growth Accession Number(s): [id number] cc: Layo Courtney D.O.; Physician,Non-Staff Steven The [place] [id number] Patient Name: SYDNEY ROMERO MRN: [facility]:[id number] date: 1995 Sex: F Assigned Patient Location: [facility] Current Patient Location: LAB Accession/Order Number: [id number] Exam Date: 01/31/2025 15:22 Report Date: 02/01/2025 [...] [place] M.D. 02/01/2025 9:21 AM Dictation Location: [place] [address] Electronically authenticated by: [id number] Y Date: 02/01/2025 09:21 Dictated By: Mariela Toledo M.D. Signed By: 02/01/25923 DD/ 0 TD/TT: Director Emergency Department: [facility] Urinalysis macro (dipstick) panel [...] Urobilinogen, UA 2.0 0.2 - 12 mg/dL [facility] US OB BPP W NON-STRESS on 01-25-2025 [place] [address] Ultrasound Report Signed Patient: SYDNEY ROMERO MR#: [id number] : 1995 Acct:[id number] Age/Sex: 29 / F ADM Date: 01/25/25 Loc: US Attending Dr: Layo Courtney D.O. Ordering Physician: Layo Courtney D.O. Date of Service: 01/25/25 Procedure(s): US OB BPP w non-stress Accession Number(s): [id number] cc: Layo Courtney D.O.; Physician,Non-Staff M.Nadir The [place] [id number] Patient Name: SYDNEY ROMERO MRN: [facility]:[id number] date: 1995 Sex: F Assigned Patient Location: [facility] Current Patient Location: US Accession/Order Number: [id number] Exam Date: 01/25/2025 16:50 Report Date: 01/25/2025 18:24 At the request of: LAYO COURTNEY DO Procedure: US OB BPP w non-stress Ultrasound biophysical profile INDICATION: Abnormal biophysical profile 01/24/2025 FINDINGS: The yarn carrier reports a BPP of 8 out of 8 LONNY is normal at 10.9 cm. heart rate 134. Heterogeneous appearance of the placenta hypoechoic focus measuring 1.3 x 2.8 x 2.0 cm in size. US/US OB BPP w non-stress IMPRESSION: BPP 8 out of 8. Impression dictated by: Bernabe Romero M.D. 01/25/2025 6:24 PM Dictation Location: [place] [address] Electronically authenticated by: [id number] Y Date: 01/25/2025 18:24 Dictated By: Bernabe Romero M.D. Signed By: 01/25/251826 DD/ 23 TD/TT: Director Emergency Department: [facility] Radiology, Radiologist, MD - 01/25/2025 [place] [address] Ultrasound Report Signed Patient: SYDNEY ROMERO MR#: [id number] : 1995 Acct:[id number] Age/Sex: 29 / F ADM Date: 01/25/25 Loc: US Attending Dr: Layo Courtney D.O. Ordering Physician: Layo Courtney D.O. Date of Service: 01/25/25 Procedure(s): US OB BPP w non-stress Accession Number(s): [id number] cc: Layo Courtney D.O.; Physician,Non-Staff Steven The [place] [id number] Patient Name: SYDNEY ROMERO MRN: [facility]:[id number] date: 1995 Sex: F Assigned Patient Location: [facility] Current Patient Location: US Accession/Order Number: [id number] Exam Date: 01/25/2025 16:50 Report Date: 01/25/2025 18:24 At the request of: LAYO COURTNEY DO Procedure: US OB BPP w non-stress Ultrasound biophysical profile INDICATION: Abnormal biophysical profile 01/24/2025 FINDINGS: The yarn carrier reports a BPP of 8 out of 8 LONNY is normal at 10.9 cm. heart rate 134. Heterogeneous appearance of the placenta hypoechoic focus measuring 1.3 x 2.8 x 2.0 cm in size. US/US OB BPP w non-stress IMPRESSION: BPP 8 out of 8. Impression dictated by: Bernabe Romero M.D. 01/25/2025 6:24 PM Dictation Location: [place] [address] Electronically authenticated by: [id number] Y Date: 01/25/2025 18:24 Dictated By: Bernabe Romero M.D. Signed By: 01/25/251826 DD/ 23 TD/TT: Director Emergency Department: [facility] Radiology Study observation (narrative) [facility] US OB BPP W NON-STRESS Ordered By: Radiologist Radiology on 01-25-2025 [facility] [employer] Work Phone: US OB BPP W NON-STRESS on 01-24-2025 [place] [address] Ultrasound Report Signed Patient: SYDNEY ROMERO MR#: [id number] : 1995 Acct:[id number] Age/Sex: 29 / F ADM Date: 01/24/25 Loc: US Attending Dr: Layo Courtney D.O. Ordering Physician: Layo Courtney D.O. Date of Service: 01/24/25 Procedure(s): US OB BPP w non-stress Accession Number(s): [id number] cc: Layo Courtney D.O.; Physician,Non-Staff M.Nadir [place] [address] Patient Name: SYDNEY ROMERO MRN: [facility]:[id number] date: 1995 Sex: F Assigned Patient Location: [facility] Current Patient Location: Accession/Order Number: [id number] Exam Date: 01/24/2025 16:10 Report Date: 01/24/2025 19:55 At the request of: LAYO COURTNEY DO Procedure: US OB BPP w non-stress Biophysical profile. Reason for exam: resulting in vitro fertilization COMPARISON: 01/17/2025 TECHNIQUE: Transabdominal imaging of the gravid uterus was obtained. FINDINGS: The yarn carrier reports a BPP of 6 out of 8 with 0/2 for gross body movements.. LONNY is normal at 11.9 cm. heart rate 148 bpm. US/US OB BPP w non-stress IMPRESSION: BPP 6out of 8. Correlation with NST is suggested. Impression dictated by: Juan Salinas Jr., D.O. 01/24/2025 7:55 PM Dictation Location: [place] [address] Electronically authenticated by: [id number] Y Date: 01/24/2025 19:55 Dictated By: Juan Salinas M.D. Signed By: 01/24/251957 DD/ 54 TD/TT: Director Emergency Department: [facility] Radiology, Radiologist, MD - 01/24/2025 [place] [address] Ultrasound Report Signed Patient: SYDNEY ROMERO MR#: [id number] : 1995 Acct:[id number] Age/Sex: 29 / F ADM Date: 01/24/25 Loc: US Attending Dr: Layo Courtney D.O. Ordering Physician: Layo Courtney D.O. Date of Service: 01/24/25 Procedure(s): US OB BPP w non-stress Accession Number(s): [id number] cc: Layo Courtney D.O.; Physician,Non-Staff Steven The [address] [address] Patient Name: SYDNEY ROMERO MRN: [facility]:[id number] date: 1995 Sex: F Assigned Patient Location: [facility] Current Patient Location: Accession/Order Number: [id number] Exam Date: 01/24/2025 16:10 Report Date: 01/24/2025 19:55 At the request of: LAYO COURTNEY DO Procedure: US OB BPP w non-stress Biophysical profile. Reason for exam: resulting in vitro fertilization COMPARISON: 01/17/2025 TECHNIQUE: Transabdominal imaging of the gravid uterus was obtained. FINDINGS: The yarn carrier reports a BPP of 6 out of 8 with 0/2 for gross body movements.. LONNY is normal at 11.9 cm. heart rate 148 bpm. US/US OB BPP w non-stress IMPRESSION: BPP 6out of 8. Correlation with NST is suggested. Impression dictated by: Juan Salinas Jr., D.O. 01/24/2025 7:55 PM Dictation Location: [place] [address] Electronically authenticated by: [id number] Y Date: 01/24/2025 19:55 Dictated By: Juan Salinas M.D. Signed By: 01/24/251957 DD/ 54 TD/TT: Director Emergency Department: [facility] Radiology Study observation (narrative) [facility] US OB BPP W NON-STRESS Ordered By: Radiologist Radiology on 01-24-2025 [facility] Work Phone: US OB BPP W NON-STRESS on 01-18-2025 [place] [address] Ultrasound Report Signed Patient: SYDNEY ROMERO MR#: [id number] : 1995 Acct:[id number] Age/Sex: 29 / F ADM Date: 01/17/25 Loc: US Attending Dr: Layo Courtney D.O. Ordering Physician: Layo Courtney D.O. Date of Service: 01/17/25 Procedure(s): US OB BPP w non-stress Accession Number(s): [id number] cc: Layo Courtney D.O.; Physician,Non-Staff Steven [address] [address] Patient Name: SYDNEY ROMERO MRN: [facility]:[id number] date: 1995 Sex: F Assigned Patient Location: [facility] Current Patient Location: Accession/Order Number: [id number] Exam Date: 01/17/2025 16:08 Report Date: 01/18/2025 [...] [place]edo M.D. 01/18/2025 9:02 AM Dictation Location: [place] [address] Electronically authenticated by: [id number] Y Date: 01/18/2025 09:02 Dictated By: Mariela Toledo M.D. Signed By: 01/18/25904 DD/ 1 TD/TT: Director Emergency Department: [facility] Radiology, Radiologist, MD - 01/18/2025 [place] [address] Ultrasound Report Signed Patient: SYDNEY ROMERO MR#: [id number] : 1995 Acct:[id number] Age/Sex: 29 / F ADM Date: 01/17/25 Loc: US Attending Dr: Layo Courtney D.O. Ordering Physician: Layo Courtney D.O. Date of Service: 01/17/25 Procedure(s): US OB BPP w non-stress Accession Number(s): [id number] cc: Layo Courtney D.O.; Physician,Non-Staff Steven [place] [address] Patient Name: SYDNEY ROMERO MRN: [facility]:[id number] date: 1995 Sex: F Assigned Patient Location: [facility] Current Patient Location: Accession/Order Number: [id number] Exam Date: 01/17/2025 16:08 Report Date: 01/18/2025 [...] [place] M.D. 01/18/2025 9:02 AM Dictation Location: [place] [address] Electronically authenticated by: [id number] Y Date: 01/18/2025 09:02 Dictated By: Mariela Toledo M.D. Signed By: 01/18/25904 DD/ 1 TD/TT: Director Emergency Department: [facility] Radiology Study observation (narrative) [...] [facility] Protein, UA Positive Negative - 1999(20) ++++ mg/dL [facility] Spec Grav, UA 1.03 1 - 1.03 [facility] Urobilinogen, UA 1.0 0.2 - 12 mg/dL [facility] US OB BPP W NON-STRESS on 01-10-2025 [place] [address] Ultrasound Report Signed Patient: SYDNEY ROMERO MR#: [id number] : 1995 Acct:[id number] Age/Sex: 29 / F ADM Date: 01/10/25 Loc: US Attending Dr: Layo Courtney D.O. Ordering Physician: Layo Courtney D.O. Date of Service: 01/10/25 Procedure(s): US OB BPP w non-stress Accession Number(s): [id number] cc: Layo Courtney D.O.; Physician,Non-Staff M.DBetito [address] [address] Patient Name: SYDNEY ROMERO MRN: [id number]:[id number] date: 1995 Sex: F Assigned Patient Location: US Current Patient Location: Accession/Order Number: [id number] Exam Date: 01/10/2025 16:03 Report Date: 01/10/2025 [...] 01/10/2025 9:07 PM Dictation Location: [place] [address] Electronically authenticated by: [id number] Y Date: 01/10/2025 21:07 Dictated By: Bernabe Romero M.D. Signed By: 01/10/252109 DD/ 06 TD/TT: Director Emergency Department: [facility] Radiology, Radiologist, MD - 01/10/2025 [place] [address] Ultrasound Report Signed Patient: SYDNEY ROMERO MR#: [id number] : 1995 Acct:[id number] Age/Sex: 29 / F ADM Date: 01/10/25 Loc: US Attending Dr: Layo Courtney D.O. Ordering Physician: Layo Courtney D.O. Date of Service: 01/10/25 Procedure(s): US OB BPP w non-stress Accession Number(s): [id number] cc: Layo Courtney D.O.; Physician,Non-Staff Steven The [place] [id number] Patient Name: SYDNEY ROMERO MRN: [facility]:[id number] date: 1995 Sex: F Assigned Patient Location: US Current Patient Location: Accession/Order Number: [id number] Exam Date: 01/10/2025 16:03 Report Date: 01/10/2025 [...] Romero M.D. 01/10/2025 9:07 PM Dictation Location: [facility] Electronically authenticated by: [id number] Y Date: 01/10/2025 21:07 Dictated By: Bernabe Romero M.D. Signed By: 01/10/252109 DD/ 06 TD/TT: Director Emergency Department: [facility] Radiology Study observation (narrative) [...] [facility] Glucose, UA Trace Negative - 1999(110) ++++ mg/dL [facility] [...] 1.0 0.2 - 12 mg/dL [facility] US OB FOLLOW UP TRANSABDOMIN AL [...] 02/23/2025. Interpreted by: Electronically signed by TOÑITO FRINED II, MD, PHD at 22-Dec-2024 08:03:51 AM [facility] Normal Not Available Comment on above: [...] [facility] Protein, UA Positive Negative - 1999(20) ++++ mg/dL [facility] Spec Grav, UA 1.03 1 - 1.03 [facility] Urobilinogen, UA 1.0 0.2 - 12 mg/dL [facility] GLUCOSE TOLERANCE 3 HOURon 0 12-06-2024 [...] 1.0 0.2 - 12 mg/dL [facility] ALL CBC WITH AUTO DIFFon BASOPHILS ABSOLUTE AUTO 0 N [facility] Basophils/100 WBC (Bld) 0.3 % 0.2 - [...] Medical Center MONOCYTES ABSOLUTE AUTO 0.4 N [facility] Monocytes/100 WBC (Bld) 4.6 % 1.7 - 12.0 % [facility] NEUTROPHILS ABSOLUTE AUTO 6.8 High [facility] Neutrophils/100 WBC (Bld) 73.7 % 43.0 - 75. 0 % [facility] Platelet mean volume (Bld) [Entitic vol] 11.3 fL 9.5 - 13.5 fL [facility] EO # 0.1 [facility] PLT 142 Low [facility] RBC 4.32 [facility] WBC 9.2 [facility] Research [...] 1.0 0.2 - 12 mg/dL [facility] Urinalysis macro (dipstick) panel (U)on 10-17-2024 [...] 0.2 0.2 - 12 mg/dL [facility] ALL CBC WITH AUTO DIFFon BASOPHILS ABSOLUTE AUTO 0 N [facility] Basophils/100 WBC (Bld) 0.2 % 0.2 - [...] Medical Center MONOCYTES ABSOLUTE AUTO 0.7 N [facility] Monocytes/100 WBC (Bld) 7.2 % 1.7 - 12.0 % [facility] NEUTROPHILS ABSOLUTE AUTO 6.3 [facility] Neutrophils/100 WBC (Bld) 67.1 % 43.0 - 75. 0 % [facility] Platelet mean volume (Bld) [Entitic vol] 11.1 fL 9.5 - 13.5 fL [facility] TBH EO # 0.3 [facility] TB PLT 153 [facility] RBC 4.27 [facility] WBC 9.4 [facility] Research [...] EFW (oz) 12 oz EFW by: Hadlock (LIN-CM-JK-FL) Extended Repairer Sash And Door 6.0 mm CM 4.4 mm 36% Nicolaides [...] Normal LVOT view: Normal 3-vessel view: Normal 7-fqynro-ryzxlus view: Normal Heart / Thorax Situs: situs [...] Normal L (more content not included)... Normal [facility] US for pregnancyon 5 Interpreted by: Ad [...] EFW (oz) 12 oz EFW by: Hadlock (KUQ-BD-BT-FL) Extended Repairer Sash And Door 6.0 mm CM 4.4 mm 36% Nicolaides [...] Normal LVOT view: Normal 3-vessel view: Normal 9-auisxx-flybeae view: Normal Heart / Thorax Situs: situs [...] Assisted [employer]ductive [employer] History ====== General History Damncu488 cm Height (ft)5 ft Height (in)3 in Previous Outcomes Gravida1 Para0 Maternal Assessment Mctmug584 cm Height (ft)5 ft Height (in)3 in Vrpskc61 kg Weight (lb)165 lb Weight gain0 kg [...] 87% Hadlock Femur32.4 mm20w 1d 73% Hadlock Gmfcpnq67.4 mm 45% Chitty HC / AC1.05 2% Hadlock PIN320 g20w 1d 91% Hadlock EFW (lb)0 lb EFW (oz)12 oz EFW by:Hadlock (ASE-QA-CN-FL) Extended Vp6.0 mm CM4.4 mm 36% Nicolaides Nasal bone4.7 mm Head / Face / Neck Cephalic index0.74 10% Nicolaides Nasal bone:present Extremities / Bony Struc FL / BPD0.74 92% Hadlock FL / HC0.20 96% Hadlock FL / AC0.21 35% Hadlock Other Structures QLE273 bpm Anatomy Cranium:Normal Lateral ventricles:Normal Choroid plexus:Normal [...] view:Normal RVOT view:Normal LVOT view:Normal 3-vessel view:Normal 6-qpiujs-ppcbxfi view:Normal Heart / Thorax Situs:situs solitus (normal) [...] Lt lower leg:Normal (more content not included)... [facility] Work Phone: Source Facility: [facility] Interpreted by: Ad Ovalle Indication ======== [...] EFW (oz) 12 oz EFW by: Hadlock ([id number]) Extended Repairer Sash And Door 6.0 mm CM 4.4 mm 36% Nicolaides [...] Normal LVOT view: Normal 3-vessel view: Normal 8-backfv-yllhrgq view: Normal Heart / Thorax Situs: situs [...] included)... Radiology, Radiologist, - 10/07/2024 Source Facility: [facility] Interpreted by: Ad Ovalle Indication ======== [...] EFW (oz) 12 oz EFW by: Hadlock ([id number]) Extended Repairer Sash And Door 6.0 mm CM 4.4 mm 36% Nicolaides [...] Normal LVOT view: Normal 3-vessel view: Normal 7-pgqoly-elszcrf view: Normal Heart / Thorax Situs: situs [...] [facility] Rad[facility] Study observation (narrative) [facility] Work Phone: Radiology Study observation (narrative) [facility] US for pregnancyOrdered By: Ad Ovalle on 10-07-2024 [facility] Work Phone: US for pregnancyOrdered [...] [facility] PRESTON GLABRATA Not detected [facility] PRESTON KRUSEI 0 [facility] PRESTON KRUSEI Not detected [facility] CHLAMYDIA TRACHOMATIS 0 [facility] CHLAMYDIA TRACHOMATIS Not detected N [facility] GARDNERELLA VAGINALIS 0 NOM [facility] GARDNERELLA VAGINALIS Not detected N [facility] MEGASPHAERA (TYPES 1, 2) 0 [facility] MEGASPHAERA (TYPES 1, 2) Not detected [facility] MYCOPLASMA GENITALIUM 0 [facility] S [facility] MYCOPLASMA GENITALIUM Not detected N [facility] NEISSERIA GONORRHOEAE 0 [facility] NEISSERIA GONORRHOEAE Not detected N [facility] TRICHOMONAS VAGINALIS 0 [facility] TRICHOMONAS VAGINALIS Not detected N [facility] Urinalysis macro (dipstick) panel (U)on [...] 0.2 0.2 - 12 mg/dL [facility] ALL CBC WITH AUTO DIFFon BASOPHILS ABSOLUTE AUTO 0 N [facility] Basophils/100 WBC (Bld) 0.2 % 0.2 - [...] [facility] MONOCYTES ABSOLUTE AUTO 0.5 N [facility] Monocytes/100 WBC (Bld) 5.8 % 1.7 - 12.0 % [facility] NEUTROPHILS ABSOLUTE AUTO 5.5 [facility] Neutrophils/100 WBC (Bld) 65 % 43.0 - 75. 0 % [facility] Platelet mean volume (Bld) [Entitic vol] 10.9 fL 9.5 - 13.5 fL [facility]H EO # 0.2 [facility] PLT 151 [facility] RBC 4.5 [facility] WBC 8.4 [facility] Research [...] 0.2 0.2 - 12 mg/dL [facility] HCG ( test) Ql (U)o n 07-29-2024 Interpretation and review of laboratory results Abnormal [facility] Preg Test, Ur Positive Negative [facility] Urinalysis macro (dipstick) panel (U)on 07-29-2024 [...] 0.2 0.2 - 12 mg/dL [facility] PROGESTERONEon 07-12-2024 PROGESTERONE 53.5 ng/mL Normal [facility] Comment on above: Result Comment: Refe rence Ranges Female Follicular Phase < 1.0 Luteal Phase 2.6-21.5 Post menopausal < 0.5 1st Trimester 4.1-34.0 2nd Trimester 24.0-76.0 3rd Trimester 52.0-302.0 Performed By: #### 7 45 #### [facility] [address], [address] [place] [id number] Tank Truck Mechanic: Alexey Boogie MD US OB TRANSVAGINALon 025 [...] dating. View: Sufficient Normal [facility] Choriogonadotropin.beta subu niton 06-30-2024 HCG.beta subunit Qn 6575 m[IU]/mL High <5 Un [facility] Comment on above: Order Comment: Total HCG measurement is performed using the [employer] Access Immunoassay which detects intact HCG and free beta HCG subunit. This test is not indicated for use as a tumor marker. HCG testing is performed using a different test methodology at [facility] than other [facility]. Direct result comparison should only [...] By: #### 2 1198-7 #### JOSEPH ESQUIVEL ([id number]) [facility] ([facility]) [address] [place] [address] Choriogonadotropin.beta subu niton 06-23-2024 HCG.beta subunit Qn 330 m[IU]/mL High <5 [place] Comment on above: Order Comment: Total HCG measurement is performed using the [employer] Access Immunoassay which detects intact HCG and free beta HCG subunit. This test is not indicated for use as a tumor marker. HCG testing is performed using a different test methodology at [facility] than other [facility]. Direct result comparison should only [...] By: #### 2 1198-7 #### JOSEPH ESQUIVEL ([id number]) [facility] ([facility]) [address] [place] [address] Estradiolon 06-23-2024 E2 [Mass/Vol] 378 pg/mL [facility] Comment on above: Order Comment: REF V ALUES FOLLICULAR PHASE 20-144 MID CYCLE 64-357 LUTEAL PHASE 56-214 POSTMENOPAUSE < 32 PREPUBERTY < 20 FEMALE 10-18Y 8-110 MALE 10-18Y < 20 ADULT MALE < 40 Estradiol measurement is performed using the [employer] Access Estradiol Immunoassay. Estradiol testing is performed using a different test methodology at [facility] than other [facility]. Direct result comparison should only be made within the same method. Performed By: #### 2 243-4 #### JOSEPH ESQUIVEL ([id number]) [facility] ([facility]) [address] [place] [address] Progesteroneon 06-23-2024 Progesterone [Mass/Vol] 42.6 ng/mL Normal U [facility] Comment on above: Order Comment: REF V ALUES Male <0.2-0.8 Follicular Phase <0.2-1.5 Luteal Phase 7.4-15.4 Post Menopausal <0.2-0.2 1ST Trimester 12.0-84.0 2ND Trimester 10.2-58.8 3RD Trimester 46.5-160 Progesterone is performed using the [employer] Access Immunoassay. Progesterone testing is performed using a different test methodology at [facility] than other [facility]. Direct result comparison should only be made within the same method. Performed By: #### 2 839-9 #### JOSEPH ESQUIVEL ([id number]) [facility] ([facility]) [address] [place] [address] No Panel Informationon 06-13 Juan Chavarria MD [...] Preop diagnosis: Infertility Post op diagnosis: Same Wrapper Operator: none Depth: 7 cm Curve: anterior Distance [...] Juan Chavarria 06/13/24 11:24 AM [facility] Work Phone: Progesteroneon 06-13-2024 Progesterone [Mass/Vol] 45.0 ng/mL Normal [facility] Comment on above: Order Comment: REF V ALUES Male <0.2-0.8 Follicular Phase <0.2-1.5 Luteal Phase 7.4-15.4 Post Menopausal <0.2-0.2 1ST Trimester 12.0-84.0 2ND Trimester 10.2-58.8 3RD Trimester 46.5-160 Progesterone is performed using the [employer] Access Immunoassay. Progesterone testing is performed using a different test methodology at [facility] than other [facility]. Direct result comparison should only be made within the same method. Performed By: #### 2 839-9 #### ORA MOHAN ([id number]) [facility] ([facility] [address] [place] [address] Estradiolon 06-07-2024 E2 [Mass/Vol] 2870 pg/mL Normal [facility] Comment on above: Order Comment: REF V ALUES FOLLICULAR PHASE 20-144 MID CYCLE 64-357 LUTEAL PHASE 56-214 POSTMENOPAUSE < 32 PREPUBERTY < 20 FEMALE 10-18Y 8-110 MALE 10-18Y < 20 ADULT MALE < 40 Performed By: #### 2 243-4 #### JOSEPH ESQUIVEL ([id number]) [facility] ([facility]) [address] [place] [address] Progesteroneon 06-07-2024 Progesterone [Mass/Vol] 0.4 ng/mL Normal [facility] Comment on above: Order Comment: REF V ALUES Male <0.2-0.8 Follicular Phase <0.2-1.5 Luteal Phase 7.4-15.4 Post Menopausal <0.2-0.2 1ST Trimester 12.0-84.0 2ND Trimester 10.2-58.8 3RD Trimester 46.5-160 Progesterone is performed using the [employer] Access Immunoassay. Progesterone testing is performed using a different test methodology at [facility] than other [facility]. Direct result comparison should only be made within the same method. Result Comment: Ref Values Male <0.3- 1.2 Follicular Phase <0.3- 1.4 Luteal Phase 3.3-25.6 Mid-Luteal Phase 4.4-28.0 Postmenopausal <0.3- 0.7 Females: 1st Trimester 11.2- 90.0 2nd Trimester 25.6- 89.4 3RD Trimester 48.4-422.5 Patients receiving DHEA-S supplements may show false elevation of progesterone for results near 1.0 ng/mL. Contact laboratory at [phone] if alternative testing is needed. Performed By: #### 2 839-9 #### JOSEPH ESQUIVEL ([id number]) [facility] ([facility]) [address] [place] [address] [facility] US PELVIS LIMITED FOLLIC LES-FOLLICLE STUDIES PERFORMEDon 06-07-2024 [facility] US PELVIS LIMITED FOLLICLES-FOLLICLE STUDIES PERFORMED Follicle scan performed with follicle measurements in report. and Trilaminar appearance to the endometrium is noted. Normal [facility] Estradiolon 06-06-2024 E2 [Mass/Vol] 558 pg/mL Normal [facility] Comment on above: Order Comment: REF V ALUES FOLLICULAR PHASE 20-144 MID CYCLE 64-357 LUTEAL PHASE 56-214 POSTMENOPAUSE < 32 PREPUBERTY < 20 FEMALE 10-18Y 8-110 MALE 10-18Y < 20 ADULT MALE < 40 Performed By: #### 2 243-4 #### JOSEPH ESQUIVEL ([id number]) [facility] ([facility]) [address] [place] [address] Follicle Diameter USon 06-06 Trilaminar appearance to the endometrium is noted. RIS SECTRA ONLY [facility] Work Phone: Radiology Study observation (narrative) [facility] Work Phone: Progesteroneon 06-06-2024 Progesterone [Mass/Vol] 0.8 ng/mL Normal [facility] Comment on above: Order Comment: REF V ALUES Male <0.2-0.8 Follicular Phase <0.2-1.5 Luteal Phase 7.4-15.4 Post Menopausal <0.2-0.2 1ST Trimester 12.0-84.0 2ND Trimester 10.2-58.8 3RD Trimester 46.5-160 Progesterone is performed using the [employer] Access Immunoassay. Progesterone testing is performed using a different test methodology at [facility] than other [facility]. Direct result comparison should only be made within the same method. Result Comment: Ref Values Male <0.3- 1.2 Follicular Phase <0.3- 1.4 Luteal Phase 3.3-25.6 Mid-Luteal Phase 4.4-28.0 Postmenopausal <0.3- 0.7 Females: 1st Trimester 11.2- 90.0 2nd Trimester 25.6- 89.4 3RD Trimester 48.4-422.5 Patients receiving DHEA-S supplements may show false elevation of progesterone for results near 1.0 ng/mL. Contact laboratory at [phone] if alternative testing is needed. Performed By: #### 2 839-9 #### JOSEPH ESQUIVEL ([id number]) [facility] ([facility]) [address] [place] [address] [facility] US ENDOMETRIAL LINING ECKon 06-06-2024 [facility] US ENDOMETRIAL LINING CHECK Trilaminar appearance to the endometrium is noted. [facility] No Panel Informationon 03-22 Juan Chavarria MD 03/22/2024 9:44 AM Egg Retrieval Date/Time: 03/22/2024 9:39 AM Performed by: Juan Chavarria MD Authorized by: Donya Abernathy APRN-SOURCING MANAGER Consent: Consent obtained: Verbal and written [...] diagnosis: Female infertility Post op diagnosis: Same Wrapper Operator: Dr. Warren IV Fluids: 600 cc EBL: 5 cc UOP: Not recorded Specimen: Oocytes Complications: None Number of Oocytes right ovary: 16 Ovarian access (right): Easy Number of Oocytes left ovary: 9 Ovarian access (left): Easy Endometrial thickness: n/a Needle type: Single Additional notes: [facility] RIS [facility] Work Phone: Lutropinon 03-21-2024 Lutropin Qn 29.3 IU/L Normal [facility] Comment on above: Result Comment: LH R eference Values Follicular Phase 1.5-10.0 Mid-Cycle 13.0-72.0 Luteal Phase 0.5-13.0 Menopause 15.0-65.0 Pre-puberty 0- 3.0 Children 0- 6.0 Adult Male 1.0- 9.0 Luteinizing Hormone is performed using the [employer] Access Immunoassay. LH testing is performed using a different test methodology at [facility] than other [facility]. Direct result comparison should only be made within the same method. Performed By: #### 4 7236-5 #### SHAI Pickard ([id number]) [facility] ([facility]) [address] [place] [address] Progesteroneon 03-21-2024 Progesterone [Mass/Vol] 4.5 ng/mL Normal [facility] Comment on above: Order Comment: HIV A g/Ab screen is performed using the [employer] HIV Ag/Ab Combo assay which detects the presence of HIV p24 antigen as well as antibodies to HIV-1 (Group M and O) and HIV-2. No laboratory evidence of HIV infection. If acute HIV infection is suspected, consider testing for HIV RNA by PCR (viral load). Performed By: #### 5 6888-1 #### SHAI Pickard ([id number]) [facility] ([facility]) [address] [place] [address] E2 [Mass/Vol]Ordered By: Shira Rich on 03-20-2024 [...] [facility] than other [facility]. Direct result comparison should only be made within the same method. [facility] EstradiolOrdered By: Bela Rich on 03-20-2024 E2 [Mass/Vol] 4909 pg/mL [facility] Estradiolon 03-20-2024 E2 [Mass/Vol] 4909 pg/mL Normal [facility] Comment on above: Order Comment: HIV A [...] By: #### 5 6888-1 #### SHAI Pickard ([id number]) [facility] ([facility]) [address] [place] [address] Follicle Diameter USon 03-20 Follicle scan performed with follicle measurements in report. RIS SECTRA ONLY [facility] Work Phone: Radiology Study observation (narrative) [facility] Work Phone: Progesteroneon 03-20-2024 Progesterone [Mass/Vol] 1.3 ng/mL U [facility] Progesterone [Mass/Vol] 1.3 ng/mL Normal U [facility] Comment on above: Order Comment: HIV A [...] By: #### 5 6888-1 #### SHAI Pickard ([id number]) [facility] ([facility]) [address] [place] [address] Progesterone [Mass/Vol]on REF VALUES Male <0.2-0.8 Follicular Phase <0.2-1.5 Luteal Phase 7.4-15.4 Post Menopausal <0.2-0.2 1ST Trimester 12.0-84.0 2ND Trimester 10.2-58.8 3RD Trimester 46.5-160 Progesterone is performed using the [employer] Access Immunoassay. Progesterone testing is performed using a different test methodology at [facility] than other [facility]. Direct result comparison should only be made within the same method. [facility] US PELVIS LIMITED FOLLIC LES-FOLLICLE STUDIES PERFORMEDon 03-20-2024 [facility] US PELVIS LIMITED FOLLICLES-FOLLICLE STUDIES PERFORMED Follicle scan performed with follicle measurements in report. Normal [facility] Estradiolon 03-19-2024 E2 [Mass/Vol] 3760 pg/mL Normal [facility] Comment on above: Order Comment: HIV A [...] By: #### 5 6888-1 #### SHAI Pickard ([id number]) [facility] ([facility]) [address] [place] [address] Follicle Diameter USon 03-19 Follicle scan performed with follicle measurements in report. RIS SECTRA ONLY [facility] Work Phone: Radiology Study observation (narrative) [facility] Work Phone: Progesteroneon 03-19-2024 Progesterone [Mass/Vol] 1.1 ng/mL Normal U [facility] Comment on above: Order Comment: HIV A [...] By: #### 5 6888-1 #### SHAI Pickard ([id number]) [facility] ([facility]) [address] [place] [address] [facility] PELVIS LIMITED FOLLIC LES-FOLLICLE STUDIES PERFORMEDon 03-19-2024 [facility] US PELVIS LIMITED FOLLICLES-FOLLICLE STUDIES PERFORMED Follicle scan performed with follicle measurements in report. Normal [facility] E2 [Mass/Vol]on 03-17-2024 REF VALUES FOLLICULAR PHASE 20-144 MID CYCLE 64-357 LUTEAL PHASE 56-214 POSTMENOPAUSE < 32 PREPUBERTY < 20 FEMALE 10-18Y 8-110 MALE 10-18Y < 20 ADULT MALE < 40 Estradiol measurement is performed using the [employer] Access Estradiol Immunoassay. Estradiol testing is performed using a different test methodology at [facility] than other [facility]. Direct result comparison should only be made within the same method. [facility] Estradiolon 03-17-2024 E2 [Mass/Vol] 1462 pg/mL [facility] E2 [Mass/Vol] 1462 pg/mL Normal [facility] Comment on above: Order Comment: HIV A g/Ab screen is performed using the [employer] HIV Ag/Ab Combo assay which detects the presence of HIV p24 antigen as well as antibodies to HIV-1 (Group M and O) and HIV-2. No laboratory evidence of HIV infection. If acute HIV infection is suspected, consider testing for HIV RNA by PCR (viral load). Performed By: #### 5 6888-1 #### SHAI Pickard ([id number]) [facility] ([facility]) [address] [place] [address] Follicle Diameter USon 03-17 Follicle scan performed with follicle measurements in report. Trilaminar appearance to the endometrium is noted. Physiologic free fluid is noted in the cul de sac. Notably retroverted uterus. Two small complex ovarian cysts noted, one on the left and one on the right. RIS SECTRA ONLY Radiology Study observation (narrative) [facility] Work Phone: Follicle Diameter USOrdered By: Leigh Ann Tuttle on 03-17-2024 [facility] Work Phone: Progesteroneon 03-17-2024 Progesterone [Mass/Vol] 0.6 ng/mL Normal U [facility] Comment on above: Order Comment: HIV A g/Ab screen is performed using the [employer] HIV Ag/Ab Combo assay which detects the presence of HIV p24 antigen as well as antibodies to HIV-1 (Group M and O) and HIV-2. No laboratory evidence of HIV infection. If acute HIV infection is suspected, consider testing for HIV RNA by PCR (viral load). Performed By: #### 5 6888-1 #### SHAI Pickard ([id number]) [facility] ([facility]) [address] [place] [address] [facility] PELVIS LIMITED FOLLIC LES-FOLLICLE STUDIES PERFORMEDon 03-17-2024 [facility] US PELVIS LIMITED FOLLICLES-FOLLICLE STUDIES PERFORMED Follicle scan performed with follicle measurements in report. Trilaminar appearance to the endometrium is noted. Physiologic free fluid is noted in the cul de sac. Notably retroverted uterus. Two small complex ovarian cysts noted, one on the left and one on the right. Normal [facility] E2 [Mass/Vol]on 03-15-2024 REF VALUES FOLLICULAR PHASE 20-144 MID CYCLE 64-357 LUTEAL PHASE 56-214 POSTMENOPAUSE < 32 PREPUBERTY < 20 FEMALE 10-18Y 8-110 MALE 10-18Y < 20 ADULT MALE < 40 Estradiol measurement is performed using the [employer] Access Estradiol Immunoassay. Estradiol testing is performed using a different test methodology at [facility] than other [facility]. Direct result comparison should only be made within the same method. [facility] Estradiolon 03-15-2024 E2 [Mass/Vol] 721 pg/mL [facility] E2 [Mass/Vol] 721 pg/mL Normal [facility] Comment on above: Order Comment: REF V ALUESFOLLICULAR PHASE 20-144MID CYCLE 64-357LUTEAL PHASE 56-214POSTMENOPAUSE < 32PREPUBERTY < 20FEMALE 10-18Y 8-110MALE 10-18Y < 20ADULT MALE < 40Estradiol measurement is performed using the [employer] Access Estradiol Immunoassay. Estradiol testing is performed using a different test methodology at [facility] than other [facility]. Direct resultcomparison should only be made within the same method. Performed By: #### 1 6128-1 #### SHAI Pickard ([id number]) [facility] ([facility]) [address] [place] [address] Follicle Diameter USon 03-15 Follicle scan performed with follicle measurements in report., Trilaminar appearance to the endometrium is noted., and Free fluid is noted in the cul de sac. RIS SECTRA ONLY [facility] Work Phone: Radiology Study observation (narrative) [facility] Work Phone: [facility] US PELVIS LIMITED FOLLIC LES-FOLLICLE STUDIES PERFORMEDon 03-15-2024 [facility] US PELVIS LIMITED FOLLICLES-FOLLICLE STUDIES PERFORMED Follicle scan performed with follicle measurements in report., Trilaminar appearance to the endometrium is noted., and Free fluid is noted in the cul de sac. Normal [facility] E2 [Mass/Vol]on 03-09-2024 REF VALUES FOLLICULAR PHASE 20-144 MID CYCLE 64-357 LUTEAL PHASE 56-214 POSTMENOPAUSE < 32 PREPUBERTY < 20 FEMALE 10-18Y 8-110 MALE 10-18Y < 20 ADULT MALE < 40 Estradiol measurement is performed using the [employer] Access Estradiol Immunoassay. Estradiol testing is performed using a different test methodology at [facility] than other [facility]. Direct result comparison should only be made within the same method. [facility] Estradiolon 03-09-2024 E2 [Mass/Vol] pg/mL pg/mL [facility] E2 [Mass/Vol] pg/mL Normal [facility] Comment on above: Order Comment: REF V ALUESFOLLICULAR PHASE 20-144MID CYCLE 64-357LUTEAL PHASE 56-214POSTMENOPAUSE < 32PREPUBERTY < 20FEMALE 10-18Y 8-110MALE 10-18Y < 20ADULT MALE < 40Estradiol measurement is performed using the [employer] Access Estradiol Immunoassay. Estradiol testing is performed using a different test methodology at [facility] than other [facility]. Direct resultcomparison should only be made within the same method. Performed By: #### 1 6128-1 #### SHAI Pickard ([id number]) [facility] ([facility]) [address] [place] [id number] Follicle Diameter USon 03-09 Follicle scan performed with follicle measurements in report., Trilaminar appearance to the endometrium is noted., and Free fluid is noted in the cul de sac. RIS SECTRA ONLY Radiology Study observation (narrative) [facility] Work Phone: Follicle Diameter USOrdered By: Alicia Morgan on 03-09-2024 [facility] Work Phone: Hematocrit Auto (Bld) [Volum e fraction]on 03-09-2024 Hematocrit (Bld) [Volume fraction] 43.2 % 36.0 - 46.0 % [facility] Interpretation and review of laboratory results Normal [facility] Hematocrit (Bld) [Volume fraction] 43.2 % Normal 36.0-46.0 [facility] Comment on above: Performed By: #### 1 6128-1 #### SHAI Pickard ([id number]) [facility] ([facility]) [address] [place] [address] [facility] US PELVIS LIMITED FOLLIC LES-FOLLICLE STUDIES PERFORMEDon 03-09-2024 [facility] US PELVIS LIMITED FOLLICLES-FOLLICLE STUDIES PERFORMED Follicle scan performed with follicle measurements in report., Trilaminar appearance to the endometrium is noted., and Free fluid is noted in the cul de sac. Normal [facility] No Panel Informationon 02-22 Juan Chavarria MD [...] diagnosis: Female infertility Post op diagnosis: Same Wrapper Operator: none IV Fluids: 500 cc EBL: 5 cc UOP: Not recorded Specimen: Oocytes Complications: None Number of Oocytes right ovary: 17 Ovarian acc ss (right): Easy Number of Oocytes left ovary: 13 Ovarian access (left): Easy Endometrial thickness: n/a Needle type: Single Additional notes: [facility] R[facility] Work Phone: Lutropinon 02-22-2024 Lutropin Qn 35.3 IU/L Normal [facility] Comment on above: Result Comment: LH R eference Values Follicular Phase 1.5-10.0 Mid-Cycle 13.0-72.0 Luteal Phase 0.5-13.0 Menopause 15.0-65.0 Pre-puberty 0- 3.0 Children 0- 6.0 Adult Male 1.0- 9.0 Luteinizing Hormone is performed using the [employer] Access Immunoassay. LH testing is performed using a different test methodology at [facility] than [facility]. Direct result comparison should only be made within the same method. Performed By: #### 1 6128-1 #### SHAI Pickard ([id number]) [facility] ([facility]) [address] [place] [place] [address] Progesteroneon 02-22-2024 Progesterone [Mass/Vol] 5.0 ng/mL Normal U [facility] Comment on above: Order Comment: REF V ALUESMale <0.2-0.8Follicular Phase <0.2-1.5Luteal Phase 7.4-15.4Post Menopausal <0.2-0.21ST Trimester 12.0-84.02ND Trimester 10.2-58.83RD Trimester 46.5-160Progesterone is performed using the [employer] Access Immunoassay.Progesterone testing is performed using a different test methodology at [facility] than [facility]. Direct result comparison should only be made within the same method. Performed By: #### 1 6128-1 #### SHAI Pickard ([id number]) [facility] ([facility]) [address] [place] [address] E2 [Mass/Vol]Ordered By: Christi Infante on 02-21-2024 REF VALUES FOLLICULAR PHASE 20-144 MID CYCLE 64-357 LUTEAL PHASE 56-214 POSTMENOPAUSE < 32 PREPUBERTY < 20 FEMALE 10-18Y 8-110 MALE 10-18Y < 20 ADULT MALE < 40 Estradiol measurement is performed using the [employer] Access Estradiol Immunoassay. Estradiol testing is performed using a different test methodology at [facility] than other [facility]. Direct result comparison should only be made within the same method. [facility] EstradiolOrdered By: Janet Ritchie on 02-21-2024 E2 [Mass/Vol] 5153 pg/mL [facility] Estradiolon 02-21-2024 E2 [Mass/Vol] 5153 pg/mL Normal [facility] Comment on above: Order Comment: REF V ALUESFOLLICULAR PHASE 20-144MID CYCLE 64-357LUTEAL PHASE 56-214POSTMENOPAUSE < 32PREPUBERTY < 20FEMALE 10-18Y 8-110MALE 10-18Y < 20ADULT MALE < 40Estradiol measurement is performed using the [employer] Access Estradiol Immunoassay. Estradiol testing is performed using a different test methodology at [facility] than other [facility]. Direct resultcomparison should only be made within the same method. Performed By: #### 1 6128-1 #### SHAI Pickard ([id number]) [facility] ([facility]) [address] [place] [address] Follicle Diameter USon 02-20 Follicle scan performed with follicle measurements in report. RIS SECTRA ONLY Radiology Study observation (narrative) [facility] Work Phone: Follicle Diameter USOrdered By: Juan Chavarria on 02-21-2024 [facility] Work Phone: Luteinizing Hormone (LH)on Lutropin Qn 0.9 m[IU]/mL IU/L [facility] Comment on above: LH Reference Values Follicular Phase 1.5-10.0 Mid-Cycle 13.0-72.0 Luteal Phase 0.5-13.0 Menopause 15.0-65.0 Pre-puberty 0- 3.0 Children 0- 6.0 Adult Male 1.0- 9.0 Luteinizing Hormone is performed using the [employer] Access Immunoassay. LH testing is performed using a different test methodology at [facility] than other [facility]. Direct result comparison should only be made within the same method. Lutropinon 02-21-2024 Lutropin Qn 0.9 IU/L Normal [facility] Comment on above: Result Comment: LH R eference Values Follicular Phase 1.5-10.0 Mid-Cycle 13.0-72.0 Luteal Phase 0.5-13.0 Menopause 15.0-65.0 Pre-puberty 0- 3.0 Children 0- 6.0 Adult Male 1.0- 9.0 Luteinizing Hormone is performed using the [employer] Access Immunoassay. LH testing is performed using a different test methodology at [facility] than [facility]. Direct result comparison should only be made within the same method. Performed By: #### 1 6128-1 #### SHAI Pickard ([id number]) [facility] ([facility]) [address] [place] [place] [address] Lutropin Qnon 02-21-2024 [facility] Progesteroneon 02-21-2024 Progesterone [Mass/Vol] 1.3 ng/mL U [facility] Progesterone [Mass/Vol] 1.3 ng/mL Normal U [facility] Comment on above: Order Comment: REF V ALUESMale <0.2-0.8Follicular Phase <0.2-1.5Luteal Phase 7.4-15.4Post Menopausal <0.2-0.21ST Trimester 12.0-84.02ND Trimester 10.2-58.83RD Trimester 46.5-160Progesterone is performed using the [employer] Access Immunoassay.Progesterone testing is performed using a different test methodology at [facility] than [facility]. Direct result comparison should only be made within the same method. Performed By: #### 5 196-1 #### SHAI Pickard ([id number]) [facility] ([facility]) [address] [place] [address] Progesterone [Mass/Vol]on REF VALUES Male <0.2-0.8 Follicular Phase <0.2-1.5 Luteal Phase 7.4-15.4 Post Menopausal <0.2-0.2 1ST Trimester 12.0-84.0 2ND Trimester 10.2-58.8 3RD Trimester 46.5-160 Progesterone is performed using the [employer] Access Immunoassay. Progesterone testing is performed using a different test methodology at [facility] than other [facility]. Direct result comparison should only be made within the same method. [facility] KELSY US PELVIS LIMITED FOLLIC LES-FOLLICLE STUDIES PERFORMEDon 02-21-2024 KELSY US PELVIS LIMITED FOLLICLES-FOLLICLE STUDIES PERFORMED Follicle scan performed with follicle measurements in report. Normal [facility] Estradiolon 02-20-2024 E2 [Mass/Vol] 3718 pg/mL Normal [facility] Comment on above: Order Comment: REF V ALUESFOLLICULAR PHASE 20-144MID CYCLE 64-357LUTEAL PHASE 56-214POSTMENOPAUSE < 32PREPUBERTY < 20FEMALE 10-18Y 8-110MALE 10-18Y < 20ADULT MALE < 40Estradiol measurement is performed using the [employer] Access Estradiol Immunoassay. Estradiol testing is performed using a different test methodology at [facility] than other [facility]. Direct resultcomparison should only be made within the same method. Performed By: #### 5 196-1 #### SHAI Pickard ([id number]) [facility] ([facility]) [address] [place] [address] Progesteroneon 02-20-2024 Progesterone [Mass/Vol] 1.4 ng/mL Normal [facility] Comment on above: Order Comment: REF V ALUESMale <0.2-0.8Follicular Phase <0.2-1.5Luteal Phase 7.4-15.4Post Menopausal <0.2-0.21ST Trimester 12.0-84.02ND Trimester 10.2-58.83RD Trimester 46.5-160Progesterone is performed using the [employer] Access Immunoassay.Progesterone testing is performed using a different test methodology at [facility] than other [facility]. Direct result comparison should only be made within the same method. Performed By: #### 5 196-1 #### SHAI Pickard ([id number]) [facility] ([facility]) [address] [place] [address] KELSY US PELVIS LIMITED FOLLIC LES-FOLLICLE STUDIES PERFORMEDon 02-20-2024 KELSY US PELVIS LIMITED FOLLICLES-FOLLICLE STUDIES PERFORMED Follicle scan performed with follicle measurements in report. Normal [facility] E2 [Mass/Vol]on 02-18-2024 REF VALUES FOLLICULAR PHASE 20-144 MID CYCLE 64-357 LUTEAL PHASE 56-214 POSTMENOPAUSE < 32 PREPUBERTY < 20 FEMALE 10-18Y 8-110 MALE 10-18Y < 20 ADULT MALE < 40 Estradiol measurement is performed using the [employer] Access Estradiol Immunoassay. Estradiol testing is performed using a different test methodology at [facility] than other [facility]. Direct result comparison should only be made within the same method. [facility] Estradiolon 02-18-2024 E2 [Mass/Vol] 1472 pg/mL [facility] E2 [Mass/Vol] 1472 pg/mL Normal [facility] Comment on above: Order Comment: REF V ALUESFOLLICULAR PHASE 20-144MID CYCLE 64-357LUTEAL PHASE 56-214POSTMENOPAUSE < 32PREPUBERTY < 20FEMALE 10-18Y 8-110MALE 10-18Y < 20ADULT MALE < 40Estradiol measurement is performed using the [employer] Access Estradiol Immunoassay. Estradiol testing is performed using a different test methodology at [facility] than other [facility]. Direct resultcomparison should only be made within the same method. Performed By: #### 5 196-1 #### SHAI Pickard ([id number]) [facility] ([facility]) [address] [place] [address] Follicle Diameter USon 02-17 Follicle scan performed with follicle measurements in report. Trilaminar appearance to the endometrium is noted. Free fluid is noted in the right paraovarian space. Notably retroverted uterus. RIS SECTRA ONLY Radiology Study observation (narrative) [facility] Work Phone: Follicle Diameter USOrdered By: Leigh Ann Tuttle on 02-18-2024 [facility] Work Phone: KELSY US PELVIS LIMITED FOLLIC LES-FOLLICLE STUDIES PERFORMEDon 02-18-2024 KELSY US PELVIS LIMITED FOLLICLES-FOLLICLE STUDIES PERFORMED Follicle scan performed with follicle measurements in report. Trilaminar appearance to the endometrium is noted. Free fluid is noted in the right paraovarian space. Notably retroverted uterus. Normal [facility] E2 [Mass/Vol]on 02-16-2024 REF VALUES FOLLICULAR PHASE 20-144 MID CYCLE 64-357 LUTEAL PHASE 56-214 POSTMENOPAUSE < 32 PREPUBERTY < 20 FEMALE 10-18Y 8-110 MALE 10-18Y < 20 ADULT MALE < 40 Estradiol measurement is performed using the [employer] Access Estradiol Immunoassay. Estradiol testing is performed using a different test methodology at [facility] than other [facility]. Direct result comparison should only be made within the same method. [facility] Estradiolon 02-16-2024 E2 [Mass/Vol] 639 pg/mL [facility] E2 [Mass/Vol] 639 pg/mL Normal [facility] Comment on above: Order Comment: REF V ALUESFOLLICULAR PHASE 20-144MID CYCLE 64-357LUTEAL PHASE 56-214POSTMENOPAUSE < 32PREPUBERTY < 20FEMALE 10-18Y 8-110MALE 10-18Y < 20ADULT MALE < 40Estradiol measurement is performed using the [employer] Access Estradiol Immunoassay. Estradiol testing is performed using a different test methodology at [facility] than other [facility]. Direct resultcomparison should only be made within the same method. Performed By: #### 5 196-1 #### SHAI Pickard ([id number]) [facility] ([facility]) [address] [place] [address] KELSY US PELVIS LIMITED FOLLIC LES-FOLLICLE STUDIES PERFORMEDon 02-16-2024 KELSY US PELVIS LIMITED FOLLICLES-FOLLICLE STUDIES PERFORMED Follicle scan performed with follicle measurements in report. and Trilaminar appearance to the endometrium is noted. Normal [facility] E2 [Mass/Vol]on 02-09-2024 REF VALUES FOLLICULAR PHASE 20-144 MID CYCLE 64-357 LUTEAL PHASE 56-214 POSTMENOPAUSE < 32 PREPUBERTY < 20 FEMALE 10-18Y 8-110 MALE 10-18Y < 20 ADULT MALE < 40 Estradiol measurement is performed using the [employer] Access Estradiol Immunoassay. Estradiol testing is performed using a different test methodology at [facility] than other [facility]. Direct result comparison should only be made within the same method. [facility] Estradiolon 02-09-2024 E2 [Mass/Vol] pg/mL pg/mL [facility] E2 [Mass/Vol] pg/mL Normal [facility] Comment on above: Order Comment: REF V ALUESFOLLICULAR PHASE 20-144MID CYCLE 64-357LUTEAL PHASE 56-214POSTMENOPAUSE < 32PREPUBERTY < 20FEMALE 10-18Y 8-110MALE 10-18Y < 20ADULT MALE < 40Estradiol measurement is performed using the [employer] Access Estradiol Immunoassay. Estradiol testing is performed using a different test methodology at [facility] than other [facility]. Direct resultcomparison should only be made within the same method. Performed By: #### 5 196-1 #### SHAI Pickard ([id number]) [facility] ([facility]) [address] [place] [address] Follicle Diameter USon 02-08 Follicle scan performed with follicle measurements in report. [facility] Radiology Study observation (narrative) [facility] Work Phone: Follicle Diameter USOrdered By: Juan Chavarria on 02-09-2024 [facility] Work Phone: Hematocrit Auto (Bld) [Volum e fraction]on 02-09-2024 Hematocrit (Bld) [Volume fraction] 42.9 % 36.0 - 46.0 % [facility] Interpretation and review of laboratory results Normal [facility] Hematocrit (Bld) [Volume fraction] 42.9 % Normal 36.0-46.0 [facility] Comment on above: Performed By: #### 4 544-3 #### JOESPH ESQUIVEL ([id number]) [facility] ([facility]) [address] [place] [address] KELSY US PELVIS LIMITED FOLLIC LES-FOLLICLE STUDIES PERFORMEDon 02-09-2024 KELSY US PELVIS LIMITED FOLLICLES-FOLLICLE STUDIES PERFORMED Follicle scan performed with follicle measurements in report. Normal [facility] HCG ( test) Ql (U)o n 01-28-2024 Interpretation and review of laboratory results Normal [facility] Work Phone: Preg Test, Ur Negative Negative [facility] Work Phone: [facility] Work Phone: No Panel Informationon [...] well, no immediate complications [facility] R[facility] Work Phone: Surgical pathology studyon 0 01-28-2024 Surgical pathology study Pathology report.total SEE COMMENT Surgical Pathology Case: [id number] Authorizing Provider: Leigh Ann Tuttle MD Collected: 01/28/2024 1027 Ordering Location: [facility] Received: 01/28/2024 1027 [place] Pathologist: Yamila Leo MD Specimen: ENDOMETRIUM POLYPECTOMY [...] is entirely submitted in 1 cassette. JEK/SBS [facility] IGP,APTIMA HPV,AGE GDLNon AGE GDLN ACOG TESTING Note . [facility] Comment on above: TESTS RESULT FLAG UN ITS REF RANGE LAB Clinician Provided Cytology Information Source.............Cervix;Endocervix No. of containers..01 ThinPrep Vial Age Algo ACOG Telma... FLAG LEGEND: L-Low Normal,H-High Normal,LL-Alert Low,HH-Alert High <-Panic Low,>-Panic High,A-Abnormal,AA-Critical Abnormal Performed at: 01 =G [facility] [place] [address] Nidhi Fay MD, IGP, RFX APTIMA HPV ASCU Note . [facility] Comment on above: TESTS RESULT FLAG UN ITS REF RANGE LAB DIAGNOSIS: 02 NEGATIVE FOR INTRAEPITHELIAL LESION OR MALIGNANCY. Specimen adequacy: 02 Satisfactory for evaluation. Endocervical and/or squamous metaplastic cells (endocervical component) are present. Performed by: 02 Isac Masters Manager Money ([facility]) . 02 Note: Note 02 [...] High,A-Abnormal,AA-Critical Abnormal Performed at: 02 WB [facility] [place], [place] [address] Nidhi Fay MD, Performed at: =G - [facility] [address] [id number] Radio Script Writer: Nidhi Fya MD, Phone: [phone] Performed at: WB - [facility] [address] [id number] Radio Script Writer: Nidih Fay MD, Phone: [phone] BRUSH-SPATULA CERVIX ENDOCERVIX [facility] Blood type and Indirect anti body screen panel (Bld)on 2023 ABO group Nom (Bld) O [facility] Blood group antibody screen Ql Negative [facility] D Ag Ql (Bld) Positive [facility] ABO group Nom (Bld) O Normal [facility] Comment on above: Performed By: #### 3 4532-2 #### JOSEPH ESQUIVEL ([id number]) [facility] ([facility]) [address] Blood group antibody screen Ql Negative [facility] Comment on above: Performed By: #### 3 4532-2 #### JOSEPH ESQUIVEL ([id number]) [facility] ([facility]) [address] D Ag Ql (Bld) Positive [facility] Comment on above: Performed By: #### 3 4532-2 #### JOSEPH ESQUIVEL ([id number]) [facility] ([facility]) [address] [place] [address] US C. trachomatis and N. gonorr hoeae DNA EDELMIRA+probe Nom (Unsp spec)on 2023 C. trachomatis rRNA EDELMIRA+probe Ql (Unsp spec) Negative Normal Negative [facility] Comment on above: Order Comment: [...] By: #### 3 6903-3 #### SHAI Pickard ([id number]) [facility] ([facility]) [address] [place] [address] N. gonorrhoeae DNA Probe+sig amp Ql (Unsp spec) Negative Normal Negative [facility] Comment on above: Order Comment: The A [...] By: #### 3 6903-3 #### SHAI Pickard ([id number]) [facility] ([facility]) [address] [place] [address] HIV 1+2 Ab+HIV1 p24 Agon HIV 1+2 Ab+HIV1 p24 Ag IA Ql Non-Reactive Normal Nonreactive [facility] Comment on above: Order Comment: HIV A g/Ab screen is performed using the [employer]to[employer] HIV Ag/Ab Combo assay which detects the presence of HIV p24 antigen as well as antibodies to HIV-1 (Group M and O) and HIV-2. No laboratory evidence of HIV infection. If acute HIV infection is suspected, consider testing for HIV RNA by PCR (viral load). Performed By: #### 5 6888-1 #### SHAI Pickard ([id number]) [facility] ([facility]) [address] [place] [address] Hepatitis B virus surface Ag on 2023 HBV surface Ag IA Ql Non-Reactive Normal Nonreactive [facility] Comment on above: Result Comment: Biot in interference may cause falsely decreased results. Patients taking a Biotin dose of up to 5 mg/day should refrain from taking Biotin for 24 hours before sample collection. Providers may contact their local laboratory for further information. Performed By: #### 5 196-1 #### SHAI Pickard ([id number]) [facility] ([facility]) [address] [place] [place] [address] Hepatitis C virus Abon 12-10 HCV Ab Ql (S) Non-Reactive Normal Nonreactive [facility] Comment on above: Result Comment: Resu lts from patients taking biotin supplements or receiving high-dose biotin therapy should be interpreted with caution due to possible interference with this test. Providers may contact their local laboratory for further information. Performed By: #### 1 6128-1 #### SHAI Pickard ([id number]) [facility] ([facility]) [address] [place], [place] [address] Rubella virus IgG IA Qnon Rubella virus IgG IA Ql Positive Normal Negative U [facility] Comment on above: Order [...] By: #### 5 334-8 #### SHAI Pickard ([id number]) [facility] ([facility]) [address] [place], [place] [address] Rubella virus IgG Qn (S) 1.2 IA Normal <=0.[address] [facility] Comment on above: Order Comment: NEGAT [...] By: #### 5 334-8 #### SHAI Pickard ([id number]) [facility] ([facility]) [address] [place] [address] Treponema pallidum Ab.IgG+Ig Mon 2023 T. pallidum IgG+IgM IA Ql (S) Non-Reactive Normal Nonreactive [facility] Comment on above: Result Comment: No s ignificant level of Treponema pallidum antibody detected. Repeat testing in 2 to 4 weeks may be considered if early infection or incubating syphilis infection is suspected. Performed By: #### 4 7236-5 #### SHAI Pickard ([id number]) [facility] ([facility]) [address] [place] [address] VZV IgG IA Ql (S)on 12-11-19 24 VARICELLA ZOSTER IGG INDEX 5.6 IA High <=0.8 [facility] Comment on above: Order Comment: NEGAT DEZ: [...] By: #### 1 5410-4 #### SHAI Pickard ([id number]) [facility] ([facility]) [address] [place] [address] Varicella zoster virus Ab.Ig Biju 2023 VZV IgG IA Ql (S) Positive Abnormal Negative [facility] Comment on above: Order Comment: [...] By: #### 1 5410-4 #### SHAI Pickard ([id number]) [facility] ([facility]) [address] [place] [place] [address] Ambulatory Visit Summaryon 0 10-02-2023 Ambulatory Visit [...] knee anterior cruciate ligament allograft reconstruction with gqwv-fwtinn-wong, debridment medial meniscus tear, patellofemoral chondroplasty-Grade I-II (07/28/2013), Tonsillectomy, tubes in the ears. Discharge Vitals Temperature (Oral) 36.8 ?C Heart Rate (Peripheral) 65 Blood Pressure 118/66 Height 162 cm Height 64 in Weight 76.7 kg Weight 168.74 lb BMI 29.23 What to do next Scheduled Follow-Up Appointments Thursday 7:20 AM EDT With: Princess Dumont Where: [facility] Primary Care Normal [facility] Family Medicine Office/Clini c Noteon 10-02-2023 [...] lot of blood work ordered by her PLANT PATHOLOGY TEACHER and we are going to go over [...] mg once day. She has been taking efzt-cbz-bhaqnjj magnesium at night since initiating Topamax. Weight management. The patient expresses a desire to lose weight and re-initiate her Adipex. She has previously tried Aryan dksq-ndi-mmalyds but found it ineffective. 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 She is agreeable trying vitamin [...] Assessment/Plan 1. Frequent headaches (R51.9: Headache, unspecified) [facility] She is taking 50 mg once daily; no adverse side effects noted. Patient cervical spine x-rays were reviewed and were unremarkable. Labs were unremarkable and reviewed during the visit. We had considered neurology referral versus additional imaging, but it was not needed at this time. We will continue to follow and follow up with me in (more content not included)... [facility] Comment on above: Result Comment: Elec tronically Signed By: Princess Dumont\.br\Date and Time Signed: 10/02/23 16:44 EDT\.br\Electronically Co-Signed By: Raj Chu\.br\Date and Time Co-Signed: 10/02/23 15:48 EDT Lab Report[facility] 10-02-2023 Lab Reports [id number] [facility] Patient Educationon 10-02-19 Patient Education BMI [...] numbers. This can be done either in Japanese ([place] or metric measurements. Note that charts and online BMI calculators are available to help you find your BMI quickly and easily without having to do these calculations yourself. To calculate your BMI in Japanese ([place] measurements: 1. Measure your weight in [...] for Disease Control and Prevention: www.cdc.gov ? [place] Heart Association: www.heart.org ? National Heart, Lung, and Blood Seaton: www.nhlbi.nih.gov Summary ? Body mass index (BMI) is a number that is calculated from a person's weight and height. ? BMI may help estimate how much of a person's weight is composed of fat. BMI can help identify those who may be at higher risk for certain medical problems. ? BMI can be measured using Japanese measurements or metric measurements. ? BMI charts are used to identify whether you are underweight, normal weight, overweight, or obese. This information is not intended to replace advice given to you by your health care provider. Make sure you discuss any questions you have with your health care provider. Document Revised: 01/11/2020 Document Reviewed: 11/18/2019 [employer] Patient Education ? 2022 [employer]. Dermatology Eczema Eczema refers to a group [...] symptoms? S (more content not included)... Normal [facility] Transfer Inon 09-02-2023 Transfer In [id number]#[id number] Normal [facility] Family Medicine Office/Clini c Noteon 08-29-2023 [...] headache and cervicalgia. She was a former Betinamilagro Bojorquezell patient. Our plan was to do a [...] and encouraged her to go see her PLANT PATHOLOGY TEACHER. The patient was overweight with an elevated BMI. Her laboratories I ordered were not performed, and she did not do the x-ray that I ordered either. She presents for headaches again. Cervicalgia and persistent headaches. The patient underwent cervical x-ray in 02/20/2023 in [place], the day after her last visit on [...] in 06/2023 or 07/2023 and done at [place]. She is uncertain if cholesterol levels were checked. Her bowel movements and urination are normal. She and her switched clinics where she is the patient for an IVF and are waiting for an appointment within the next 2 months. 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 Ibuprofen every 6 to 8 hours. Tylenol [...] appearing. EN (more content not included)... Normal [facility] Comment on above: [...] numbers. This can be done either in Japanese ([place].S[place] or metric measurements. Note that charts and online BMI calculators are available to help you find your BMI quickly and easily without having to do these calculations yourself. To calculate your BMI in Japanese ([place].S.) measurements: 1. Measure your weight in [...] for Disease Control and Prevention: www.cdc.gov ? [place] Heart Association: www.heart.org ? National Heart, Lung, and Blood Se[place]: www.nhlbi.nih.gov Summary ? Body mass index (BMI) is a number that is calculated from a person's weight and height. ? BMI may help estimate how much of a person's weight is composed of fat. BMI can help identify those who may be at higher risk for certain medical problems. ? BMI can be measured using Japanese measurements or metric measurements. ? BMI charts are used to identify whether you are underweight, normal weight, overweight, or obese. This information is not intended to replace advice given to you by your health care provider. Make sure you discuss any questions you have with your health care provider. Document Revised: 01/11/2020 Document Reviewed: 11/18/2019 [employer] Patient Education ? 2022 [employer] Endocrinology Carbohydrate Counting for Diabetes Mellitus, [...] contain carbohydra (more content not included)... Normal [facility] DHEA SERUMon 07-31-2022 Dehydroepiandrosterone (DHEA) 429 ng/dL Normal 31-701 [facility] Comment on above: Performed By: #### D Abdi. #### [facility] [address] [place] [address] Dr. Meghna Alas ANTI-MULLERIAN HORMONEon Anti-Mullerian Hormone (AMH) 2.01 ng/mL Normal [facility] Comment on above: Result Comment: For assays employing antibodies, the possibility exists for interference by heterophile antibodies in the samples.1 1.Ramon Calderon Interferences in Immunoassays - still a threat. Clin. Chem. 2000; 46: 1882-8507. This test was developed and its performance characteristics determined by tic. It has not been cleared or approved by the Food and Drug Administration. Reference Range: Females 20 - 25y: 1.23 - 11.51 Median 4.70 AMH concentrations of >= 1.06 ng/mL is correlated with a better response to ovarian stimulation, produced more retrievable oocytes and higher odds of live according to Lindseyer et al. Fertility and Sterility. 2010: 94:1584-7463. The current AMH test method correlates with [...] tumor. Performed By: #### A JOSE #### [facility] [address] [address] [address] Meghna Alas PAP ACOG PANEL 2: 21 to 29on 07-29-2022 . . Normal [facility] Comment on above: Performed By: #### [id number] ####[facility] [address] [id number] Alas Age Gdln ACOG Testing - [facility] Comment on above: Performed By: #### 4 [id number] ####[facility] [address] [id number] Alas DIAGNOSIS: Comment [facility] Comment on above: Result Comment: NEGA TIVE FOR INTRAEPITHELIAL LESION OR MALIGNANCY. Performed By: #### 4 [id number] ####[facility] [address] [id number] Alas Methodology: Comment [facility] Comment on above: Result Comment: This liquid based ThinPrep(R) pap test was screened with the use of an image guided system. Performed By: #### 4 [id number] ####[facility] [address] [id number] Alas Note: Comment [facility] Comment on above: Result Comment: The Pap smear is a screening test designed to aid in the detection of premalignant and malignant conditions of the uterine cervix. It is not a diagnostic procedure and should not be used as the sole means of detecting cervical cancer. Both false-positive and false-negative reports do occur. . Performed By: #### 4 [id number] ####[facility] [address] [id number] Alas Performed by: Comment Normal [facility] Comment on above: Result Comment: Antonella Villarreal, Supervisory Manager Money (ASCP) Performed By: #### 4 [id number] ####[facility] [address] [id number][address] Meghna Alas Reflex Criteria: Comment Normal [facility] Comment on above: Result Comment: The HPV DNA reflex criteria were not met with this specimen result therefore, no HPV testing was performed. . Performed By: #### [id number] ####[facility] [address] [id number] Alas Specimen adequacy: Comment Normal [facility] Comment on above: Result Comment: Sati sfactory for evaluation. Endocervical and/or squamous metaplastic cells (endocervical component) are present. Performed By: #### 4 [id number] ####[facility] [address] [address]DrBetito Alas DHEA-SULFATEon 07-27-2022 DHEA-Sulfate 195.0 ug/dL Normal 110.0-431.7 [facility] Comment on above: Performed By: #### D RADHA #### [facility] [address] [place] [address] Dr. Meghna Alas FSHon 07-27-2022 FSH 11.4 mIU/mL Normal [facility] Comment on above: Result Comment: Adul t Female: Follicular phase 3.5 - 12.5 Ovulation phase 4.7 - 21.5 Luteal phase 1.7 - 7.7 Postmenopausal 25.8 - 134.8 Performed By: #### L BCFS #### [facility] [address] [place] [address] Dr. Meghna Alas LUTEINIZING HORMONE (LH)on 0 07-27-2022 LH 61.8 mIU/mL Normal [facility] Comment on above: Result Comment: Adul t Female: Follicular phase 2.4 - 12.6 Ovulation phase 14.0 - 95.6 Luteal phase 1.0 - 11.4 Postmenopausal 7.7 - 58.5 Performed By: #### L BCLH #### [facility] [address] [address] [address] Meghna Alas US PELVIS AND TRANSVAGon [...] by: RACQUEL UNLU Date: 2022-07-27 08:10 Normal [facility] CBC AUTO DIFFon 07-26-2022 BASO # 0.1 103/ul Normal 0.0-0.1 [facility] Comment on above: Performed By: #### C BC #### [facility] [address] [place] [address] Dr. Meghna Alas Basophils/100 WBC (Bld) 0.8 % Normal 0.2-2.0 [facility] Comment on above: Performed By: #### C BC #### [facility] [address] [place] [address] Dr. Meghna Alas EO # 0.2 103/ul Normal 0.0-0.7 [facility] Comment on above: Performed By: #### C BC #### [facility] [address] [place] [address] Dr. Meghna Alas Eosinophils/100 WBC (Bld) 3.7 % Normal 0.9-7.0 [facility] Comment on above: Performed By: #### C BC #### [facility] [address] [place] [address] Dr. Meghna Alas Erythrocyte distribution width (RBC) [Ratio] 11.7 % Normal 11.0-15.0 [facility] Comment on above: Performed By: #### C BC #### [facility] [address] [place] [address] Dr. Meghna Alas Hematocrit (Bld) [Volume fraction] 43.6 % Normal 36.0-48.0 [facility] Comment on above: Performed By: #### C BC #### [facility] [address] [place] [address] Dr. Meghna Alas Hemoglobin (Bld) [Mass/Vol] 14.9 g/dL Normal 12.0-16.0 [facility] Comment on above: Performed By: #### C BC #### [facility] [address] [place] [address] Dr. Meghna Alas IG # 0.02 10e3/ul Normal 0.00-0.03 [facility] Comment on above: Performed By: #### C BC #### [facility] [address] [place] [address] Dr. Meghna Alas IG % 0.3 % Normal 0.0-0.5 [facility] Comment on above: Performed By: #### C BC #### [facility] [address] [place] [address] Dr. Meghna Alas LYMPH # 1.7 103/ul Normal 1.2-3.8 [facility] Comment on above: Performed By: #### C BC #### [facility] [address] [place] [address] Dr. Meghna Alas Lymphocytes/100 WBC (Bld) 27.7 % Normal 20.5-60.0 [facility] Comment on above: Performed By: #### C BC #### [facility] [address] [place] [address] Dr. Meghna Alas MANUAL DIFF REQ NO Normal [facility] Comment on above: Performed By: #### C BC #### [facility] [address] [place] [address] Dr. Meghna Alas MCH (RBC) [Entitic mass] 30.7 pg Normal 26.7-34.0 [facility] Comment on above: Performed By: #### C BC #### [facility] [address] [address] [address] Meghna Alas MCHC (RBC) [Mass/Vol] 34.2 g/dL Normal 29.9-35.2 [facility] Comment on above: Performed By: #### C BC #### [facility] [address] [place] [address] Dr. Meghna Alas MCV (RBC) [Entitic vol] 89.7 fL Normal 81.0-99.0 [facility] Comment on above: Performed By: #### C BC #### [facility] [address] [place] [address] Dr. Meghna Alas MONO # 0.4 103/ul Normal 0.3-0.8 [facility] Comment on above: Performed By: #### C BC #### [facility] [address] [place] [address] Dr. Meghna Alas Monocytes/100 WBC (Bld) 7.1 % Normal 1.7-12.0 [facility] Comment on above: Performed By: #### C BC #### [facility] [address] [place] [address] Dr. Meghna Alas NEUT # 3.7 103/ul Normal 1.4-6.5 [facility] Comment on above: Performed By: #### C BC #### [facility] [address] [place] [address] Dr. Meghna Alas Neutrophils/100 WBC (Bld) 60.4 % Normal 43.0-75.0 [facility] Comment on above: Performed By: #### C BC #### [facility] [address] [place] [address] Dr. Meghna Alas Platelet mean volume (Bld) [Entitic vol] 11.3 fL Normal 9.5-13.5 [facility] Comment on above: Performed By: #### C BC #### [facility] [address] [place] [address] Dr. Meghna Alas PLT 154 103/ul Normal 150-450 [facility] Comment on above: Performed By: #### C BC #### [facility] [address] [place] [address] Dr. Meghna Alas RBC 4.86 106/ul Normal 4.20-5.40 [facility] Comment on above: Performed By: #### C BC #### [facility] [address] [place] [address] Dr. Meghna Alas WBC 6.2 103/ul Normal 4.0-11.0 [facility] Comment on above: Performed By: #### C BC #### [facility] [address] [place] [address] Dr. Meghna Alas FREE T4on 07-26-2022 Free T4 [Mass/Vol] 1.04 ng/dL Normal 0.76-1.46 [facility] Comment on above: Performed By: #### F T4 #### [facility] [address] [place] [address] Dr. Meghna Alas GLYCOHEMOGLOBIN A1Con 2022 ADA RECOMMENDATION SEE BELOW Normal [facility] Comment on above: Result Comment: ADA RECOMMENDED LIMIT 4.0 - 6.0 ADA THERAPEUTIC TARGET < 7.0 ACTION SUGGESTED > 7.0 Performed By: #### A 1C #### [facility] [address] [place] [address] Dr. Meghna Alas Glucose [Mass/Vol] 82 mg/dL Normal [facility] Comment on above: Performed By: #### A 1C #### [facility] [address] [place] [address] Dr. Meghna Alas HbA1c (Bld) [Mass fraction] 4.5 % Normal 4.5-6.2 [facility] Comment on above: Performed By: #### A 1C #### [facility] [address] [place] [address] Dr. Meghna Alas TSHon 07-26-2022 TSH 1.522 uIU/mL Normal 0.358-3.740 [facility] Comment on above: Performed By: #### T SH #### [facility] [address] [place] [address] Dr. Meghna Alas Vital Signs Date Time Vital Sign Value Performing Clinician Facility 02-14-2025 14:44-0400 Body mass index (BMI) [Ratio] 42.07 kg/m2 Layo Sherwin DO Work Phone: [facility] 02-14-2025 14:44-0400 Body weight 107.73 kg Layo Sherwin DO Work Phone: [facility] 02-14-2025 14:44-0400 Diastolic blood pressure 82 mm[Hg] Layo Sherwin DO Work Phone: [facility] 02-14-2025 14:44-0400 Systolic blood pressure 110 mm[Hg] Layo Sherwin DO Work Phone: [facility] 02-07-2025 13:41-0400 Body mass index (BMI) [Ratio] 41.88 kg/m2 Yomaira Cesar DELINQUENCY PREVENTION OFFICER Work Phone: [facility] 02-07-2025 13:41-0400 Body weight 107.23 kg Yomaira Cesar DELINQUENCY PREVENTION OFFICER Work Phone: [facility] 02-07-2025 13:41-0400 Diastolic blood pressure 82 mm[Hg] Yomaira Cesar DELINQUENCY PREVENTION OFFICER Work Phone: [facility] 02-07-2025 13:41-0400 Systolic blood pressure 128 mm[Hg] Yomaira Cesar DELINQUENCY PREVENTION OFFICER Work Phone: [facility] 01-31-2025 14:07-0400 Body mass index (BMI) [Ratio] 40.57 kg/m2 Yomaira Cesar DELINQUENCY PREVENTION OFFICER Work Phone: [facility] 01-31-2025 14:07-0400 Body weight 103.87 kg Yomaira Cesar DELINQUENCY PREVENTION OFFICER Work Phone: [facility] 01-31-2025 14:07-0400 Diastolic blood pressure 76 mm[Hg] Yomaira Cesar DELINQUENCY PREVENTION OFFICER Work Phone: [facility] 01-31-2025 14:07-0400 Systolic blood pressure 122 mm[Hg] Yomaira Cesar DELINQUENCY PREVENTION OFFICER Work Phone: [facility] 01-16-2025 15:13-0400 [...] mass index (BMI) [Ratio] 33.17 kg/m2 Brandy Jackson PA Work Phone: [facility] 09-06-2024 15:31-0400 Body weight 84.94 kg Brandy Jackson PA Work Phone: [facility] 09-06-2024 15:31-0400 Diastolic blood pressure 82 mm[Hg] Brandy Sissy PA Work Phone: [facility] 09-06-2024 15:31-0400 Systolic blood pressure 110 mm[Hg] Brandy Sissy PA Work Phone: [facility] 08-08-2024 [...] Body mass index (BMI) [Ratio] 31.18 kg/m2 [facility] 07-29-2024 09:53-0400 Body weight 79.83 kg [facility] 07-29-2024 09:53-0400 Diastolic blood pressure 72 mm[Hg] [facility] 07-29-2024 09:53-0400 Systolic blood pressure 118 mm[Hg] [facility] 04-06-2024 14:04-0500 Blood Pressure Location Mallory Jauregui [facility] 04-06-2024 14:04-0500 Diastolic blood pressure 74 mm[Hg] Mallory Jauregui [facility] 04-06-2024 14:04-0500 Heart rate 80 /min Mallory Jauregui [facility] 04-06-2024 14:04-0500 SaO2% (BldA) [Mass fraction] 100 % Mallory Jauregui [facility] 04-06-2024 14:04-0500 Systolic blood pressure 108 mm[Hg] Mallory Jauregui [facility] 03-22-2024 10:45-0500 Diastolic blood pressure 62 mm[Hg] Juan Chavarria MD Work Phone: [facility] 03-22-2024 10:45-0500 Heart rate 65 /min Juan Chavarria MD Work Phone: [facility] 03-22-2024 10:45-0500 Respiratory rate 17 /min Juan Chavarria MD Work Phone: [facility] 03-22-2024 10:45-0500 SaO2% (BldA) [Mass fraction] 100 % Juan Chavarria MD Work Phone: [facility] 03-22-2024 10:45-0500 Systolic blood pressure 94 mm[Hg] Juan Chavarria MD Work Phone: 2(005)[phone] [place] [address] 03-22-2024 09:45-0500 Body temperature 97.3 [degF] Juan Chavarria MD Work Phone: 5(872)718-383628 [place] [address] 03-22-2024 08:29-0500 Body height 160 cm Juan Chavarria MD Work Phone: 1(797)707-670528 [place] [address] 03-22-2024 08:29-0500 Body mass index (BMI) [Ratio] 29.25 kg/m2 Juan Chavarria MD Work Phone: 9([phone])347-741728 [place] [address] 03-22-2024 08:29-0500 Body weight 74.9 kg Juan Chavarria MD Work Phone: 4(077)860-885628 [place] [address] 02-23-2024 09:49-0400 Body temperature 97.7 [degF] Juan Chavarria MD Work Phone: 7(153)637-381728 [place] [address] 02-23-2024 09:49-0400 Diastolic blood pressure 65 mm[Hg] Juan Chavarria MD Work Phone: 2(310)145-986428 [place] [address] 02-23-2024 09:49-0400 Heart rate 94 /min Juan Chavarria MD Work Phone: 5(145)456-104028 [place] [address] 02-23-2024 09:49-0400 Respiratory rate 22 /min Juan Chavarria MD Work Phone: 0(313)901-808828 [place] [address] 02-23-2024 09:49-0400 SaO2% (BldA) [Mass fraction] 100 % Juan Chavarria MD Work Phone: 5(235)348-0032[address] [place] [address] 02-23-2024 09:49-0400 Systolic blood pressure 102 mm[Hg] Juan Chavarria MD Work Phone: 7(823)105-812328 [place] [address] 02-23-2024 07:27-0400 Body height 160 cm Juan Chavarria MD Work Phone: 5(546)781-536428 [place] [address] 02-23-2024 07:27-0400 Body mass index (BMI) [Ratio] 29.41 kg/m2 Juan Chavarria MD Work Phone: 8(862)508-482928 [place] [address] 02-23-2024 07:27-0400 Body weight 75.3 kg Juan Chavarria MD Work Phone: [facility] 01-28-2024 10:31-0400 Diastolic blood pressure 59 mm[Hg] Leigh Ann Tuttle MD Work Phone: [facility] 01-28-2024 10:31-0400 Heart rate 71 /min Leigh Ann Tuttle MD Work Phone: [facility] 01-28-2024 10:31-0400 Respiratory rate 20 /min Leigh Ann Tuttle MD Work Phone: [facility] 01-28-2024 10:31-0400 SaO2% (BldA) [Mass fraction] 100 % Leigh Ann Tuttle MD Work Phone: [facility] 01-28-2024 10:31-0400 Systolic blood pressure 101 mm[Hg] Leigh Ann Tuttle MD Work Phone: [facility] 01-28-2024 09:31-0400 Body temperature 98.1 [degF] Leigh Ann Tuttle MD Work Phone: [facility] 01-28-2024 08:48-0400 Body height 160 cm Leigh Ann Tuttle MD Work Phone: [facility] 01-28-2024 08:48-0400 Body mass index (BMI) [Ratio] 29.21 kg/m2 Leigh Ann Tuttle MD Work Phone: [facility] 01-28-2024 08:48-0400 Body weight 74.8 kg Leigh Ann Tuttle MD Work Phone: [facility] 01-14-2024 10:52-0400 Body mass index [...] 160 cm Juan Chavarria MD Work Phone: [facility] 12-28-2023 10:09-0400 Body mass index (BMI) [Ratio] 30.11 kg/m2 Juan Chavarria MD Work Phone: [facility] 12-28-2023 10:09-0400 Body weight 77.11 kg Juan Chavarria MD Work Phone: [facility] 12-28-2023 10:09-0400 Diastolic blood pressure 81 mm[Hg] Juan Chavarria MD Work Phone: [facility] 12-28-2023 10:09-0400 Heart rate 62 /min Juan Chavarria MD Work Phone: [facility] 12-28-2023 10:09-0400 Systolic blood pressure 119 mm[Hg] Juan Chavarria MD Work Phone: [facility] 2023 08:46-0400 Body height 160 cm Trish Thorpe WOOL BROKER-SOURCING MANAGER Work Phone: [facility] 2023 08:46-0400 Body mass index (BMI) [Ratio] 29.23 kg/m2 Trish hTorpe WOOL BROKER-SOURCING MANAGER Work Phone: [facility] 2023 08:46-0400 Body weight 74.84 kg Trish Thorpe WOOL BROKER-SOURCING MANAGER Work Phone: [facility] 2023 08:46-0400 Diastolic blood pressure 67 mm[Hg] Trish Thorpe WOOL BROKER-SOURCING MANAGER Work Phone: [facility] 2023 08:46-0400 Heart rate 72 /min Trish Thorpe WOOL BROKER-SOURCING MANAGER Work Phone: [facility] 2023 08:46-0400 Systolic blood pressure 122 mm[Hg] Trish Thorpe WOOL BROKER-SOURCING MANAGER Work Phone: [facility] 10-02-2023 11:14-0400 Blood Pressure Location Princess Rapp [facility] 10-02-2023 11:14-0400 Body temperature 98.24 [degF] Princess Rapp [facility] 10-02-2023 11:14-0400 Diastolic blood pressure 66 mm[Hg] Princess Rapp [facility] 10-02-2023 11:14-0400 Heart rate 65 /min Princess Rapp [facility] 10-02-2023 11:14-0400 SaO2% (BldA) [Mass fraction] 98 % Princess Rapp [facility] 10-02-2023 11:14-0400 Systolic blood pressure 118 mm[Hg] Princess Rapp [facility] 08-27-2023 17:44-0400 Blood Pressure Location Princess Rapp [facility] 08-27-2023 17:44-0400 Body temperature 98.06 [degF] Princess Rapp [facility] 08-27-2023 17:44-0400 Diastolic blood pressure 76 mm[Hg] Princess Rapp [facility] 08-27-2023 17:44-0400 Heart rate 85 /min Princess Rapp [facility] 08-27-2023 17:44-0400 Respiratory rate 14 /min Princess Rapp [facility] 08-27-2023 17:44-0400 SaO2% (BldA) [Mass fraction] 99 % Princess Rapp [facility] 08-27-2023 17:44-0400 Systolic blood pressure 110 mm[Hg] Princess Rapp [facility] 02-19-2023 07:41-0400 Body temperature 97.7 [degF] Princess Rapp [facility] 02-19-2023 07:41-0400 Diastolic blood pressure 70 mm[Hg] Princess Rapp [facility] 02-19-2023 07:41-0400 Heart rate 81 /min Princess Rapp [facility] 02-19-2023 07:41-0400 SaO2% (BldA) [Mass fraction] 99 % Princess Rapp [facility] 02-19-2023 07:41-0400 Systolic blood pressure 110 mm[Hg] Princess Rapp [facility] 07-24-2021 16:57-0400 Blood Pressure Location Leigh Ann Covington [facility] 07-24-2021 16:57-0400 Body temperature 97.7 [degF] Leigh Ann Covington [facility] 07-24-2021 16:57-0400 Diastolic blood pressure 68 mm[Hg] Leigh Ann Covington [facility] 07-24-2021 16:57-0400 Heart rate 88 /min Leigh Ann Covington [facility] 07-24-2021 16:57-0400 SaO2% (BldA) [Mass fraction] 99 % Leigh Ann Covington [facility] 07-24-2021 16:57-0400 Systolic blood pressure 122 mm[Hg] Leigh Ann Covington [facility] Encounters Encounter Date Encounter Type Care Provider Facility Start: 02-14-2025 End: 02-14-2025 ambulatory LAYO SHERWIN Not Available Start: 02-14-2025 End: 02-14-2025 flow sheet Layo Sherwin DO Work Phone: [facility] Comment on above: Third trimester preg rehan ([facility]); 37 weeks gestation of ([facility]) Start: 02-14-2025 End: 02-14-2025 Bamboo flowsheet Layo Sherwin DO Work Phone: [facility] Start: 02-14-2025 End: 02-14-2025 Bamboo flowsheet Layo Sherwin DO Work Phone: [facility] Start: 02-07-2025 End: 02-07-2025 Bamboo flowsheet Yomaira Guerrero DELINQUENCY PREVENTION OFFICER Work Phone: [facility] Start: 02-07-2025 End: 02-07-2025 Bamboo flowsheet Yomaira Guerrero DELINQUENCY PREVENTION OFFICER Work Phone: [facility] Start: 02-07-2025 End: 02-07-2025 Clinisync Result Encounter Layo Sherwin DO Work Phone: [facility] Department Unsolicited Start: 02-07-2025 End: 02-07-2025 flow sheet Yomaira Guerrero DELINQUENCY PREVENTION OFFICER Work Phone: [facility] Comment on above: Third trimester preg rehan ([facility]); 36 weeks gestation of ([facility]) Start: 02-07-2025 End: 02-07-2025 ambulatory YOMAIRA CESAR Not Available Start: 02-01-2025 End: 02-01-2025 Clinisync Result Encounter Layo Sherwin DO Work Phone: [facility] Unsolicited Start: 02-01-2025 End: 02-01-2025 Clinisync Result Encounter Layo Sherwin DO Work Phone: [facility] Unsolicited Start: 01-31-2025 End: 01-31-2025 Bamboo flowsheet Yomaira Cesar DELINQUENCY PREVENTION OFFICER Work Phone: [facility] Start: 01-31-2025 End: 01-31-2025 Bamboo flowsheet Yomaira Cesar DELINQUENCY PREVENTION OFFICER Work Phone: [facility] Start: 01-31-2025 End: 01-31-2025 ambulatory YOMAIRA CESAR Not Available Start: 01-31-2025 End: 01-31-2025 flow sheet Yomaira Cesar DELINQUENCY PREVENTION OFFICER Work Phone: [facility] Comment on above: Third trimester preg rehan ([facility]); 35 weeks gestation of ([facility]); Encounter for in vitro fertilization Start: 01-25-2025 [...] 33 weeks gestation o f ([facility]); Third trimester ([facility]); Group B streptococcal infection; resulting from in vitro fertilization in first trimester ([facility]) Start: 01-16-2025 End: 01-16-2025 ambulatory LAYO SHERWIN [...] Sherwin DO Work Phone: [facility] Start: 01-03-2025 End: 01-03-2025 flow sheet Layo Sherwin DO Work Phone: [facility] Comment on above: Third trimester preg rehan ([facility]); 31 weeks gestation of ([facility]); resulting from in vitro fertilization in third trimester ([facility]) Start: 01-03-2025 End: 01-03-2025 ambulatory LAYO SHERWIN Not Available Start: 12-19-2024 End: 12-19-2024 flow sheet Layo Sherwin DO Work Phone: [facility] Comment on above: 29 weeks gestation o f ([facility]); Third trimester ([facility]); Leukocytes in urine; Other microscopic hematuria Start: [...] on above: 27 weeks gestation o f ([facility]); Second trimester ([facility]) Start: 12-06-2024 End: 12-06-2024 ambulatory LAYO SHERWIN [...] pre gnancy ([facility]); 26 weeks gestation of ([facility]); Diabetes mellitus screening Start: 11-08-2024 End: 11-08-2024 [...] Second trimester ([facility]); 20 weeks gestation of ([facility]) Start: 10-17-2024 End: 10-17-2024 ambulatory LAYO SHERWIN [...] 10-07-2024 Subsequent hospital visit by physician Myles Mckineny [facility] 1 Valeria Hay Comment on above: ([facility]) Start: 10-07-2024 End: 10-07-2024 ambulatory [facility] Start: 09-22-2024 End: 09-22-2024 ambulatory [...] End: 07-11-2024 Patient encounter procedure Donya Abernathy WOOL BROKER-SOURCING MANAGER Work Phone: Valeria Hay Comment on above: Fertility testing (P rimary Dx); Encounter to determine viability of , single or unspecified fetus Start: 07-11-2024 End: 07-11-2024 ambulatory DONYA ABERNATHY [facility] Start: 06-30-2024 End: 06-30-2024 ambulatory [facility] Start: 06-23-2024 End: 06-23-2024 ambulatory [facility] Start: 06-23-2024 End: 06-23-2024 ambulatory [facility] Start: 06-13-2024 End: 06-13-2024 Subsequent hospital visit by physician Juan Chavarria MD Work Phone: Valeria Hay Comment on above: Encounter for assist ed reproductive fertility cycle Start: 06-13-2024 End: 06-13-2024 ambulatory JUAN Zamora [facility] Start: 06-07-2024 End: 06-07-2024 ambulatory [facility] Start: 06-06-2024 End: 06-06-2024 [facility] Start: 06-06-2024 End: 06-06-2024 Professional / ancillary services management Mac [id number] [facility] [place] Comment on above: Female infertility Start: 06-06-2024 End: 06-06-2024 ambulatory [facility] Start: 05-23-2024 End: 05-23-2024 ambulatory [facility] Start: 04-06-2024 ambulatory Mallory Jauregui Faci lity:[facility] Start: 04-06-2024 End: 04-06-2024 Patient encounter procedure Mallory Jauregui [facility] Start: 03-22-2024 End: 03-22-2024 Subsequent hospital visit by physician Juan Chavarria MD Work Phone: Valeria Hay Comment on above: Encounter for assist ed reproductive fertility cycle Start: 03-22-2024 End: 03-22-2024 ambulatory JUAN Zamora [facility] Start: 03-21-2024 End: 03-21-2024 ambulatory [facility] Start: 03-20-2024 End: 03-20-2024 Professional / ancillary services management Mac [id number] [facility] Valeria Hay Comment on above: Female infertility Start: 03-20-2024 End: 03-20-2024 ambulatory [facility] Start: 03-19-2024 End: 03-19-2024 Professional / ancillary services management Mac [id number] [facility] Valeria Hay Comment on above: Female infertility Start: 03-19-2024 End: 03-19-2024 ambulatory [facility] Start: 03-17-2024 End: 03-17-2024 [facility] Start: 03-17-2024 End: 03-17-2024 Professional / ancillary services management Mac [id number] [facility] Valeria Hay Comment on above: Female infertility Start: 03-17-2024 End: 03-17-2024 ambulatory DONYA Pickard [facility] Start: 03-15-2024 End: 03-15-2024 ambulatory [facility] Start: 03-15-2024 End: 03-15-2024 ambulatory DONYA Pickard [facility] Start: 03-15-2024 End: 03-15-2024 Professional / ancillary services management Mac [id number] [facility] Valeria Hay Comment on above: Female infertility Start: 03-09-2024 End: 03-09-2024 [facility] Start: 03-09-2024 End: 03-09-2024 Patient encounter status [facility] Start: 03-09-2024 End: 03-09-2024 Professional / ancillary services management Mac [id number] [facility] Valeria Hay Comment on above: Female infertility; Pre-procedure lab exam Start: 03-09-2024 End: 03-09-2024 ambulatory [facility] Start: 02-23-2024 End: 02-23-2024 Subsequent hospital visit by physician Juan Chavarria MD Work Phone: Valeria Hay Comment on above: Encounter for assist ed reproductive fertility cycle Start: 02-23-2024 End: 02-23-2024 ambulatory JUAN CHAVARRIA [facility] Start: 02-22-2024 End: 02-22-2024 ambulatory [facility] Start: 02-21-2024 End: 02-21-2024 Professional / ancillary services management Mac [id number] [facility] Valeria Hay Comment on above: Female infertility Start: 02-21-2024 End: 02-21-2024 ambulatory AMERICA [facility] Start: 02-20-2024 End: 02-20-2024 ambulatory [facility] Start: 02-20-2024 End: 02-20-2024 Professional / ancillary services management Mac [id number] [facility] Valeria Hay Comment on above: Female infertility Start: 02-20-2024 End: 02-20-2024 ambulatory [facility] Start: 02-18-2024 End: 02-18-2024 ambulatory [facility] Start: 02-18-2024 End: 02-18-2024 Professional / ancillary services management Mac [id number] [facility] Valeria Hay Comment on above: Female infertility Start: 02-18-2024 End: 02-18-2024 [facility] Start: 02-16-2024 End: 02-16-2024 Professional / ancillary services management Mac [id number] [facility] [place] Comment on above: Female infertility Start: 02-16-2024 End: 02-16-2024 ambulatory [facility] Start: 02-09-2024 End: 02-09-2024 Patient encounter status [facility] Start: 02-09-2024 End: 02-09-2024 Professional / ancillary services management Mac [id number] [facility] [place] Comment on above: Pre-procedure lab ex am; Female infertility Start: 02-09-2024 End: 02-09-2024 ambulatory [facility] Start: 02-02-2024 End: 02-02-2024 ambulatory [facility] Start: 01-28-2024 End: 01-28-2024 Subsequent hospital visit by physician Leigh Ann Tuttle MD Work Phone: Valeria Hay Comment on above: Endometrial polyp Start: 01-28-2024 End: 01-28-2024 ambulatory LEIGH ANN TUTTLE [facility] Start: 01-25-2024 End: 01-25-2024 ambulatory [facility] Start: 01-25-2024 End: 01-25-2024 Encounter for preprocedural laboratory examination [facility] Start: 01-14-2024 End: 01-14-2024 Bamboo flowsheet [...] MD Work Phone: [facility] Comment on above: Fertility testing [Z 31.41] (Primary Dx); 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 [Z31.81, N97.8] Start: 12-28-2023 End: 12-28-2023 ambulatory JUAN CHAVARRIA [facility] Start: 12-25-2023 End: 12-25-2023 ambulatory AFUA JULIAN [facility] Start: 2023 End: 2023 ambulatory [facility] Start: 2023 End: 2023 Patient encounter procedure Trish Thorpe WOOL BROKER-SOURCING MANAGER Work Phone: [facility] Comment on above: Encounter for screen ing for other viral diseases (Primary Dx); Encounter for Rh blood typing; Screening for STDs (sexually transmitted diseases); Genetic screening; Fertility testing; Female infertility associated with male factors Start: 2023 End: 2023 Patient encounter status Trish Thorpe WOOL BROKER-SOURCING MANAGER Work Phone: [facility] Work Phone: Start: 2023 End: 2023 ambulatory TRISH THORPE [facility] Start: 2023 End: 2023 Encounter for blood typing TRISH THORPE [facility] Start: 10-21-2023 ambulatory Princess Yin ity:[facility] Start: 10-02-2023 End: 10-02-2023 ambulatory Princess Rapp Facility:[facility] Start: 10-02-2023 End: 10-02-2023 Patient encounter procedure Princess Rapp [facility] Start: 08-27-2023 End: 08-27-2023 ambulatory Princess Rapp Facility:[facility] Start: 08-27-2023 End: 08-27-2023 Patient encounter procedure Princess Rapp [facility] Start: 03-25-2023 End: 03-25-2023 Patient encounter procedure Princses Rapp [facility] Start: 02-19-2023 End: 02-19-2023 Patient encounter procedure Princess Rapp [facility] Start: 07-26-2022 End: 07-27-[address] LAYO COURNTEY . Facility:[facility] Start: 07-23-2022 End: 07-23-[address] LAYO COURTNEY . Facility:[facility] Start: 07-24-2021 End: 07-24-2021 Patient encounter procedure Leigh Ann Covington [facility] Procedures Date Procedure Procedure Detail Performing Clinician Start: 02-14-2025 Urnls dip stick/tabl et rgnt non-auto w/o micrscp Layo Sherwin DO Work Phone: Start: 02-07-2025 US OB BPP W NON-STRESS Layo Sherwin DO Work Phone: Start: 02-07-2025 Urnls dip stick/tabl et rgnt non-auto w/o micrscp Yomaira Cesar DELINQUENCY PREVENTION OFFICER Work Phone: Start: 02-01-2025 US OB BPP W NON-STRESS Layo Sherwin DO Work Phone: Start: 02-01-2025 US OB GROWTH Layo Fazi o DO Work Phone: Start: 01-31-2025 Urnls dip stick/tabl et rgnt non-auto w/o micrscp Yomaira Cesar DELINQUENCY PREVENTION OFFICER Work Phone: Start: 01-25-2025 US OB BPP [...] dip stick/tablet rgnt non-auto w/o micrscp Layo Navarroo DO Work Phone: Start: 06-13-2024 Embryo transfer intrauterine Beti Warren MD Work Phone: Start: 06-13-2024 Ultrasonic guidance intraoperative Beti Warren MD Work Phone: Start: 06-06-2024 Us pelvic nonobstetr ic image dcmtn limited/f/u Donya Pickard Josemanuel WOOL BROKER-SOURCING MANAGER Work Phone: Start: 03-22-2024 Follicle puncture oo cyte retrieval any method Donya Pickard Josemanuel WOOL BROKER-SOURCING MANAGER Work Phone: Start: 03-20-2024 Us pelvic nonobstetr ic image dcmtn limited/f/u Donya Pickard Josemanuel WOOL BROKER-SOURCING MANAGER Work Phone: Start: 03-20-2024 Assay of estradiol America Gt Dwight WOOL BROKER-SOURCING MANAGER Work Phone: Start: 03-19-2024 Us pelvic nonobstetr ic image dcmtn limited/f/u Donya Abernathy WOOL BROKER-SOURCING MANAGER Work Phone: Start: 03-17-2024 Us pelvic nonobstetr ic image dcmtn limited/f/u Donya Abernathy WOOL BROKER-SOURCING MANAGER Work Phone: Start: 03-17-2024 Assay of estradiol Donya Pickard Josemanuel WOOL BROKER-SOURCING MANAGER Work Phone: Start: 03-15-2024 Us pelvic nonobstetr ic image dcmtn limited/f/u Donya Pickard Josemanuel WOOL BROKER-SOURCING MANAGER Work Phone: Start: 03-15-2024 Assay of estradiol Donya Pickard Josemanuel WOOL BROKER-SOURCING MANAGER Work Phone: Start: 03-09-2024 Us pelvic nonobstetr ic image dcmtn limited/f/u America R Dwight WOOL BROKER-SOURCING MANAGER Work Phone: Start: 03-09-2024 Blood count hematocrit Donya Pickard Josemanuel WOOL BROKER-SOURCING MANAGER Work Phone: Start: 02-23-2024 Follicle puncture oo cyte retrieval any method Beth Warren MD Work Phone: Start: 02-21-2024 Us pelvic nonobstetr ic image dcmtn limited/f/u America R Dwight WOOL BROKER-SOURCING MANAGER Work Phone: Start: 02-21-2024 Gonadotropin luteini zing hormone Beti Warren MD Work Phone: Start: 02-18-2024 Us pelvic nonobstetr ic image dcmtn limited/f/u America R Dwight WOOL BROKER-SOURCING MANAGER Work Phone: Start: 02-18-2024 Assay of estradiol America R Dwight WOOL BROKER-SOURCING MANAGER Work Phone: Start: 02-16-2024 Assay of estradiol America R Dwight WOOL BROKER-SOURCING MANAGER Work Phone: Start: 02-09-2024 Blood count hematocrit America R Dwight WOOL BROKER-SOURCING MANAGER Work Phone: Start: 02-09-2024 Us pelvic nonobstetr ic image dcmtn limited/f/u America R Dwight WOOL BROKER-SOURCING MANAGER Work Phone: Start: 01-28-2024 Hysteroscopy bx [...] knee anterior cruciate ligament allograft reconstruction with [id number], debridment medial meniscus tear, patellofemoral chondroplasty-Grade I-II Leigh Ann Covington Tonsillectomy Leigh Ann Covington tubes in the ears Leigh Ann bartholomew Plan of Treatment Date Care Activity Detail Author Start: 2072 RSV High Risk: (Elderly (60+) or Population) (1 - 1-dose 75+ series) RSV High Risk: (Elderly (60+) or Population) (1 - 1-dose 75+ series) [facility] Start: 12-12-2047 Zoster Vaccines (1 of 2) Zoster Vaccines (1 of 2) [facility] Start: 01-13-2027 Screening for malignant neoplasm of cervix [facility] Start: 02-14-2025 End: 02-14-2025 Patient encounter procedure 02/14/2025 2:30 PM EDT Routine SHIRA ZACARIAS [address] [place] [address] Layo Courtney DO [address] [place] [address] SHIRA ZACARIAS Start: 02-07-2025 End: 02-07-2025 Patient encounter procedure [facility] Comment on above: Arrived Start: 01-31-2025 End: 01-31-2026 CULTURE, GROUP B STREP WITH SUSCEPTIBLITY CULTURE, GROUP B STREP WITH SUSCEPTIBLITY Lab Routine Third trimester ([facility]) Expected: 01/31/2025, Expires: 01/31/2026 [facility] Work Phone: Comment on above: Expected: 01/31/2025, Expires: Start: 01-31-2025 End: 06-02-2025 US for US OB follow up transabdominal approach Imaging Routine Encounter for in vitro fertilization Expected: 01/31/2025, Expires: 06/02/2025 [facility] Comment on above: Expected: 01/31/2025, Expires: Start: 01-31-2025 End: 01-31-2025 Patient encounter procedure 01/31/2025 1:50 PM EDT Routine [facility] [address] [place] [id number] Yomaira Guerrero, DELINQUENCY PREVENTION OFFICER [address] [place] [phone] [facility] Start: 01-30-2025 End: 01-30-2025 Patient encounter procedure 01/30/2025 3:50 PM EDT Routine [facility] [address] [place] [address] Yomaira Guerrero, DELINQUENCY PREVENTION OFFICER [address] [place] [address] [facility] [place] [facility] Start: 01-16-2025 End: 01-16-2025 Patient encounter procedure SHIRA Naidu Comment on above: Arrived Start: 01-03-2025 End: 07-03-2025 US biophysical profile w non stress test US biophysical profile w non stress test Imaging Routine resulting from in vitro fertilization in third trimester ([facility]) Expected: 01/03/2025 (Approximate), Expires: 07/03/2025 [facility] Work Phone: Comment on above: Expected: 01/03/2025 (Approximate), Expi res: 07/03/2025 Start: 01-03-2025 End: 01-03-2025 Patient encounter procedure SHIRA Naidu Comment on above: Arrived Start: 01-02-2025 Influenza vaccination Influenza Vaccine (Season Ended) [facility] Start: 12-19-2024 End: 12-19-2024 Professional / ancillary services management 12/19/2024 9:30 AM EDT Ancillary Procedure [facility] [address] [place] [address] [facility] Start: 12-19-2024 End: 12-19-2024 Patient encounter procedure [facility] Start: 12-06-2024 End: 12-06-2024 Patient encounter procedure [facility] Comment on above: Arrived Start: 11-08-2024 End: 11-08-2024 Patient encounter procedure 11/08/2024 2:40 PM EDT Routine [facility] [address] [place] [phone] Layo Courtney, DO [address] [place] [address] [facility] Start: 11-08-2024 End: 11-08-2025 [...] mellitus screening Expected: 11/08/2024 (Approximate), Expires: 11/08/2025 [facility] Comment on above: Expected: 11/08/2024 (Approximate), Expi res: 11/08/2025 Start: 10-17-2024 End: 10-17-2024 Patient encounter procedure 10/17/2024 1:00 PM EDT Routine [facility] [address] [place] [phone] Layo Courtney, DO [address] [place], [place] [id number] Arrived [facility] Comment on above: [...] Routine Pruritus Expected: 10/11/2024 (Approximate), Expires: 10/11/2025 [facility] Work Phone: Comment on above: Expected: 10/11/2024 (Approximate), Expi res: 10/11/2025 Start: 10-11-2024 End: 10-11-2025 Thyrotropin [Units/volume] in Serum or Plasma TSH Lab Routine Pruritus Expected: 10/11/2024 (Approximate), Expires: 10/11/2025 [facility] Comment on above: Expected: 10/11/2024 [...] for anatomic survey Expected: 09/06/2024, Expires: 12/07/2024 [facility] Comment on above: Expected: 09/06/2024, Expires: Start: 08-08-2024 End: 08-08-2024 Patient encounter procedure [facility] Comment on above: Arrived Start: 07-29-2024 End: 07-29-2025 ABO/Rh ABO/Rh Lab Routine Missed menses , unspecified gestational age Expected: 07/29/2024 (Approximate), Expires: 07/29/2025 [facility] Comment on above: Expected: 07/29/2024 (Approximate), Expi res: 07/29/2025 Start: 07-29-2024 End: 07-29-2025 Blood type and Indirect antibody screen panel - Blood Type and screen Lab Routine Missed menses , unspecified gestational age Expected: 07/29/2024 (Approximate), Expires: 07/29/2025 [facility] Work Phone: Comment on above: Expected: 07/29/2024 (Approximate), Expi res: 07/29/2025 Start: 07-29-2024 End: 07-29-2025 Drugs of abuse panel - Urine by Screen method Rapid drug screen, urine Lab Routine , unspecified gestational age Encounter for supervision of normal first in first trimester Expected: 07/29/2024 (Approximate), Expires: 07/29/2025 [facility] Comment on above: Expected: 07/29/2024 (Approximate), Expi res: 07/29/2025 Start: 07-11-2024 End: 07-11-2025 Progesterone [Mass/volume] in Serum or Plasma Progesterone Lab Routine Fertility testing Expected: 07/11/2024 (Approximate), Expires: 07/11/2025 [facility] Service Area Work Phone: Comment on above: Expected: 07/11/2024 (Approximate), Expi res: 07/11/2025 Start: 06-23-2024 Orders Only 06/23/2024 Orders Only Shaw Darlinfadi Satnam [address] [place] [phone] Ira Lopez RN Encounter for test, result unknown Valeria Chanel Satnam Comment on above: Encounter for test, result unk nown Start: 03-20-2024 End: 03-20-2025 Lutropin [Units/volume] in Serum or Plasma Luteinizing Hormone Lab STAT Female infertility Expected: 03/20/2024 (Approximate), Expires: 03/20/2025 [facility] Work Phone: Comment on above: Expected: 03/20/2024 (Approximate), Expi res: 03/20/2025 Start: 03-20-2024 End: 03-20-2025 Progesterone [Mass/volume] in Serum or Plasma Progesterone Lab STAT Female infertility Expected: 03/20/2024 (Approximate), Expires: 03/20/2025 [facility] Service Area Work Phone: Comment on above: Expected: 03/20/2024 (Approximate), Expi res: 03/20/2025 Start: 03-20-2024 End: 03-20-2024 Professional / ancillary services management 03/20/2024 8:00 AM EST Ancillary Procedure Valeria Chanel Troyon [address] [place] [address] Shaw Darío Hay Start: 03-19-2024 End: 03-19-2024 Professional / ancillary services management 03/19/2024 8:30 AM EST Ancillary Procedure Shaw Risfadi Simmonson [address] [place] [address] Valeria Hay Start: 03-17-2024 End: 03-17-2025 Estradiol (E2) [Mass/volume] in Serum or Plasma Estradiol Lab STAT Female infertility Expected: 03/17/2024 (Approximate), Expires: 03/17/2025 [facility] Service Area Work Phone: Comment on above: Expected: 03/17/2024 (Approximate), Expi res: 03/17/2025 Start: 03-17-2024 End: 03-17-2025 Progesterone [Mass/volume] in Serum or Plasma [facility] Work Phone: Comment on above: Expected: 03/17/2024 (Approximate), Expi res: 03/17/2025 Start: 03-17-2024 End: 03-17-2024 Professional / ancillary services management 03/17/2024 6:45 AM EST Ancillary Procedure Valeria Simmonson [address] [place] [id number] Valeria Simmonson Start: 03-15-2024 End: 03-15-2024 Professional / ancillary services management 03/15/2024 6:45 AM EST Ancillary Procedure Valeria Simmonson [address] [place], [place] [phone] [facility] Start: 03-09-2024 End: 03-09-2024 Professional / ancillary services management 03/09/2024 7:15 AM EST Ancillary Procedure Valeria Simmonson [address] [place] [address] [facility] Start: 02-23-2024 End: 02-23-2024 Patient encounter procedure 02/23/2024 8:30 AM EDT Appointment Valeria Simmonson [address] [place], [place] [phone] Juan Chavarria MD [address] [place] [address] [place] [address] Manuela sera Department of Anesthesiology and [place] [address] Valeria Simmonson Start: 02-21-2024 End: 02-21-2024 Professional / ancillary services management 02/21/2024 8:30 AM EDT Ancillary Procedure Valeria Simmonson [address] [place] [phone] Valeria [facility] Start: 02-20-2024 End: 02-17-2025 Estradiol (E2) [Mass/volume] in Serum or Plasma Estradiol Lab STAT Female infertility Expected: 02/20/2024 (Approximate), Expires: 02/17/2025 [facility] Service Area Work Phone: Comment on above: Expected: 02/20/2024 (Approximate), Expi res: 02/17/2025 Start: 02-20-2024 End: 02-17-2025 Progesterone [Mass/volume] in Serum or Plasma Progesterone Lab STAT Female infertility Expected: 02/20/2024 (Approximate), Expires: 02/17/2025 [facility] Work Phone: Comment on above: Expected: 02/20/2024 (Approximate), Expi res: 02/17/2025 Start: 02-20-2024 End: 02-20-2024 Professional / ancillary services management 02/20/2024 8:30 AM EDT Ancillary Procedure Shaw Risfadi Hay [address] [place] [address] Valeria Hay Start: 02-18-2024 End: 02-18-2024 Professional / ancillary services management 02/18/2024 7:45 AM EDT Ancillary Procedure Shaw Risfadi Simmonson [address] [place] [address] Shaw Darío Hay Start: 02-16-2024 End: 02-16-2024 Professional / ancillary services management 02/16/2024 7:15 AM EDT Ancillary Procedure [facility] [address] [place] [address] [facility] Start: 02-09-2024 End: 02-09-2024 Professional / ancillary services management 02/09/2024 7:15 AM EDT Ancillary Procedure [facility] [address] [place] [address] [facility] Start: 01-14-2024 End: 01-14-2024 Patient encounter procedure 01/14/2024 11:00 AM EDT Office Visit [facility] [address] [place] [address] Brandy Sheehan PA [address] [address] Arrived [facility] Comment on above: Arrived Start: 01-03-2024 COVID-19 Vaccine () COVID-19 Vaccine ( season) [facility] Start: 01-03-2024 COVID-19 Vaccine () COVID-19 Vaccine () [facility] Start: 01-03-2024 Influenza vaccination Influenza Vaccine (#1) [facility] Start: 12-25-2023 End: 12-25-2023 Telemedicine consultation with patient 12/25/2023 9:00 AM EDT Telemedicine Clinical Support [facility] [address] [facility] [address] [place] [address] Afua Julian I, [facility] [address] [facility] [place] [address] [facility] Start: 2023 End: 12-10-2024 Chlamydia trachomatis and Neisseria gonorrhoeae DNA [Identifier] in Unspecified specimen by EDELMIRA with probe detection [facility] Work Phone: Comment on above: Expected: 2023 (Approximate), Expi res: 12/10/2024 Start: 2023 End: 12-10-2024 Hepatitis B virus surface Ag [Presence] in Serum or Plasma by Immunoassay [facility] Work Phone: Comment on above: Expected: 2023 (Approximate), Expi res: 12/10/2024 Start: 2023 End: 12-10-2024 Hepatitis C virus Ab [Presence] in Serum [facility] Work Phone: Comment on above: Expected: 2023 (Approximate), Expi res: 12/10/2024 Start: 2023 End: 12-10-2024 HIV 1+2 Ab+HIV1 p24 Ag [Presence] in Serum or Plasma by Immunoassay [facility] Work Phone: Comment on above: Expected: 2023 (Approximate), Expi res: 12/10/2024 Start: 2023 End: 12-10-2024 Rubella virus IgG Ab [Units/volume] in Serum [facility] Service Area Work Phone: Comment on above: Expected: 2023 (Approximate), Expi res: 12/10/2024 Start: 2023 End: 12-10-2024 Treponema pallidum IgG+IgM Ab [Presence] in Serum by Immunoassay [facility] Work Phone: Comment on above: Expected: 2023 (Approximate), Expi res: 12/10/2024 Start: 2023 End: 12-10-2024 Varicella zoster virus IgG Ab [Presence] in Serum by Immunoassay [facility] Work Phone: Comment on above: Expected: 2023 (Approximate), Expi res: 12/10/2024 Start: 01-02-2023 COVID-19 Vaccine ( season) COVID-19 Vaccine ( season) [facility] Start: 12-21-2019 DTaP/Tdap/Td Vaccines (2 - Td or Tdap) DTaP/Tdap/Td Vaccines (2 - Td or Tdap) [facility] Start: 2018 Screening for malignant neoplasm of cervix [facility] Start: 2016 Hepatitis B Vaccines (1 of 3 - 19+ 3-dose series) Hepatitis B Vaccines (1 of 3 - 19+ 3-dose series) [facility] Start: 12-12-2015 Hepatitis C screening Hepatitis C Screening [facility] Start: 2012 HPV Vaccines (1 - 3-dose series) HPV Vaccines (1 - 3-dose series) [facility] Start: 03-14-2010 Varicella vaccination Varicella Vaccines (2 of 2 - 2-dose childhood series) [facility] Start: 01-17-2010 MMR Vaccines (1 of 1 - Standard series) MMR Vaccines (1 of 1 - Standard series) [facility] Start: 1997 HIV screening HIV Screening [facility] Start: 1997 Lipid panel Lipid Panel [facility] Start: 1997 Yearly Adult Physical Yearly Adult Physical [facility] Bacteria identified in Urine by Culture Urine culture Microbiology Routine Missed menses Ordered: 07/29/2024 [facility] Comment on above: Ordered: 07/29/2024 Bacteria identified in Urine by Culture Urine culture Microbiology Routine Leukocytes in urine Other microscopic hematuria Ordered: 12/19/2024 [facility] Work Phone: Comment on [...] for 1 Occurrences starting 02/23/2024 until 02/23/2024 [facility] Service Area Work Phone: Comment on above: Once (Lab) for 1 Occurrences starting until 02/23/2024 End: 03-22-2024 Choriogonadotropin ( test) [Presence] in Urine POCT , urine manually resulted Point of Care Testing Routine Once (Lab) for 1 Occurrences starting 03/22/2024 until 03/22/2024 [facility] Service Area Work Phone: Comment on above: Once (Lab) for 1 Occurrences starting until 03/22/2024 End: 02-10-2025 Choriogonadotropin ( test) [Presence] in Urine POCT , urine manually resulted Point of Care Testing Routine Once (Lab) for 1 Occurrences starting 06/13/2024 until 06/13/2024 [facility] Service Area Work Phone: Comment on [...] Routine Female infertility 02/16/2024 7:17 AM EDT [facility] Service Area Work Phone: KELSY US Pelvis Limite d Follicles - Follicle Studies Performed KELSY US Pelvis Limited Follicles - Follicle Studies Performed Imaging Routine Female infertility 02/20/2024 9:06 AM EDT [facility] Service Area Work Phone: Rubella antibody, IgG Rubella an tibody, IgG Lab Routine Missed menses , unspecified gestational age Ordered: 07/29/2024 [facility] Comment on above: Ordered: 07/29/2024 SURESWAB(R) ADVANCED VAGINITIS PLUS, TMA SURESWAB(R) ADVANCED VAGINITIS PLUS, TMA Pathology and Cytology Routine STD exposure Ordered: 09/06/2024 [facility] Work Phone: Comment on above: Ordered: 09/06/2024 End: 01-28-2024 Surgical pathology study [facility] Service Ar ea Work Phone: Comment on above: Once (Lab) for 1 Occurrences starting until 01/28/2024, 1 completed Once (Lab) for 1 Occ urrences starting 01/28/2024 until 01/28/2024 Immunizations Immunization Date Immunization Notes Care Provider Fa cility 12-20-2009 meningococcal ACWY vaccine, unspecified formulation Princess Rapp [facility] 12-20-2009 tetanus toxoid, reduced diphtheria toxoid, and acellular pertussis vaccine, adsorbed Princess Rapp [facility] 12-20-2009 varicella virus vaccine Princess Rapp [facility] NEGATED: Highlighted row has not occurred!04-06-2024 influenza virus vaccine, unspecified formulation Mallory Jauregui [facility] NEGATED: Highlighted row has not occurred!06-26-2021 influenza virus vaccine, unspecified formulation Leigh Ann Covington [facility] NEGATED: Highlighted row has not occurred!06-26-2021 SARS-CoV-2 (COVID-19) Ad26 vaccine, recombinant Leigh Ann Covington [facility] NEGATED: Highlighted row has not occurred!01-29-2021 influenza virus vaccine, unspecified formulation Leigh Ann Covington [facility] NEGATED: Highlighted row has not occurred!01-29-2021 SARS-CoV-2 (COVID-19) Ad26 vaccine, recombinant Leigh Annjuan C[place]ton [facility] NEGATED: Highlighted row has not occurred!05-03-2019 influenza virus vaccine, live, attenuated, for intranasal use Leigh Ann Covington [facility] NEGATED: Highlighted row has not occurred!09-30-2018 influenza virus vaccine, unspecified formulation Leigh Ann Covington [facility] Payers Date Payer Category Payer Managed Care (Private) 1.2.8 [id number] 2022 Private Health Insurance [employer] [id number] 2022 Unknown [id number]. 1.13.647.2. 7.3.539340.315 2022 Unknown [id number] 1997 Unknown [id number] 2.16840.1.169898.3.579.2. 593 1997 Unknown [id number] 2.16840.1.530370.3.579.2. 593 1997 Unknown [id number] 2.840.1.633607.3.579.2. 727 1997 Unknown [id number] 2.16840.1.690844.3.579.2. 727 1997 Unknown [id number] 2.840.1.501744.3.579.2. 727 1997 Unknown [id number] 2.840.1.367305.3.579.2. 727 1997 Unknown [id number] 2.1.597989.3.579.2. 124 1997 Unknown [id number] 2.840.1.370263.3.579.2. 124 1997 Unknown [id number] 2.840.1.070879.3.579.2. 124 1997 Unknown [id number] 2.840.1.137436.3.579.2. 124 1997 Unknown [id number] 284.1.958310.3.579.2. 124 1997 Unknown [id number] 2.840.1.457565.3.579.2. 124 1997 Unknown [id number] 2.16840.1.937758.3.579.2. 124 1997 Unknown [id number] 2.16840.1.812177.3.579.2. 124 1997 Unknown [id number] 2.840.1.405875.3.579.2. 124 1997 Unknown [id number] 2.16.840.1.352341.3.579.2. 1244 1997 Unknown [id number] 2.16.840.1.087171.3.579.2. 1244 1997 Unknown [id number] 2.16.840.1.074573.3.579.2. 1244 1997 Unknown [id number] 2.16.840.1.541023.3.579.2. 1244 1997 Unknown [id number] 2.16.840.1.033995.3.579.2. 1244 1997 Unknown [id number] 2.16.840.1.199090.3.579.2. 1244 1997 Unknown [id number] 2.16.840.1.209403.3.579.2. 1244 1997 Unknown [id number] 2.16840.1.004298.3.579.2. 1244 1997 Unknown [id number] 2.16840.1.841559.3.579.2. 1244 1997 Unknown [id number] 2.16840.1.358600.3.579.2. 1244 1997 Unknown [id number] 2.16.840.1.017777.3.579.2. 1244 1997 Unknown [id number] 2.16.840.1.063548.3.579.2. 1244 1997 Unknown [id number] 2.16.840.1.088045.3.579.2. 1244 1997 Unknown [id number] 2.16.840.1.991350.3.579.2. 1244 1997 Unknown [id number] 2.16.840.1.142294.3.579.2. 1244 1997 Unknown [id number] 2.16.840.1.411834.3.579.2. 1244 1997 Unknown [id number] 2.16.840.1.784377.3.579.2. 1244 1997 Unknown [id number] 2.16.840.1.361486.3.579.2. 1244 1997 Unknown [id number] 2.16.840.1.887342.3.579.2. 1244 1997 Unknown [id number] 2.840.1.620597.3.579.2. 1244 1997 Unknown [id number] 2.840.1.116377.3.579.2. 1244 1997 Unknown [id number] 2.840.1.143033.3.579.2. 1244 1997 Unknown [id number] 2.840.1.483474.3.579.2. 1244 1997 Unknown [id number] 2.840.1.791669.3.579.2. 1244 1997 Unknown [id number] 2.840.1.921721.3.579.2. 1244 1997 Unknown [id number] 2.840.1.020734.3.579.2. 1244 1997 Unknown [id number] 2.840.1.696871.3.579.2. 1244 1997 Unknown [id number] 2.840.1.326340.3.579.2. 1244 1997 Unknown [id number] 2.840.1.326713.3.579.2. 1244 1997 Unknown [id number] 2.840.1.917874.3.579.2. 1244 1997 Unknown [id number] 2.840.1.533960.3.579.2. 1244 1997 Unknown [id number] 2.16840.1.337743.3.579.2. 1259 1997 Unknown [id number] 2.16.840.1.084360.3.579.2. 1259 1997 Unknown [id number] 2.16.840.1.269501.3.579.2. 1259 1997 Unknown [id number] 2.16.840.1.116858.3.579.2. 9 1997 Unknown [id number] 2.16.840.1.273418.3.579.2. 1259 1997 Unknown [id number] 2.16.840.1.215673.3.579.2. 9 1997 Unknown [id number] 2.16.840.1.159802.3.579.2. 9 1997 Unknown [id number] 2.16.840.1.403193.3.579.2. 1258 1997 Unknown [id number] 2.16.840.1.139688.3.579.2. 9 1997 Unknown [id number] 2.16.840.1.265381.3.579.2. 1258 1997 Unknown [id number] 2.16.840.1.842074.3.579.2. 9 1997 Unknown [id number] 2.16.840.1.399754.3.579.2. 1258 1997 Unknown [id number] 2.16.840.1.368970.3.579.2. 1259 1997 Unknown [id number] 2.16.840.1.085193.3.579.2. 1258 1997 Unknown [id number] 2.16.840.1.761919.3.579.2. 1259 1959 Unknown [id number] Social History Date Type Detail Facility Start: 07-24-2021 End: 03-05-2023 Tobacco smoking status Never smoked tobacco (finding) [facility] Start: 09-01-2022 Tobacco smoking status Never [facility] Start: 01-28-2024 End: 07-29-2024 Sex Assigned At Female [facility] Start: 2023 Tobacco use and exposure Smokeless tobacco non-user [facility] Work Phone: Start: 01-28-2024 End: 06-23-2024 Alcoholic beverage intake Ex-drinker (finding) [facility] Work Phone: Start: 01-28-2024 End: 07-29-2024 History of Social function [facility] Work Phone: Start: 2023 Alcohol Comment Occassionally [facility] Work Phone: Start: 1997 Sex assigned at Not on file [facility] Work Phone: Start: 12-01-2023 End: 10-07-2024 Exposure to SARS-CoV-2 (event) Not sure [facility] Start: 02-23-2024 End: 02-07-2025 Alcoholic beverage intake Current drinker of alcohol (finding) [facility] Work Phone: Start: 03-05-2023 Alcohol Comment Beer 1-2 times per m [facility] Start: 12-18-2023 End: 12-28-2023 Exposure to SARS-CoV-2 (event) Unable to assess [facility] Start: 06-08-2024 [facility]care Medical Equipment Procedure Code Equipment Code Equipment Origin al Text Equipment Identifier Dates [id number] Start: 03-01-2024 End: 03-09-2024 Functional Status Date Assessment Result Facility 04-06-2024 Functional Status N/A [facility] 10-02-2023 Functional Status N/A [facility] 08-27-2023 Functional Status N/A [facility] 02-19-2023 Functional Status N/A [facility] Clinical Notes 07-24-2021 to 02-14-2025 Mariela GreerRAEGAN - 02/14/2025 2:30 PM Nahomi Guerrero NP - 02/07/2025 1:40 PM EDTMamber Elder MA - 01/31/2025 1:50 PM Nahomi Guerrero NP - 01/16/2025 2:50 PM EDTDischarge Instructions Note Date & Type Note Facility 02-14-2025 History of Present illness Narrative Reason for [...] nursing note reviewed. Exam conducted with a jet aircraft servicer present. Vitals: Estimated body mass index is 42.07 kg/m as calculated from the following: Height as of 09/17/22: 5' 3 . Weight as of this encounter: 237 lb 8 oz. BP: 110/82 No LMP recorded. Patient is . ASSESSMENT & PLAN ICD-10-CM 1. Third trimester ([facility]) Z34.93 POCT urinalysis dipstick manually resulted 2. 37 weeks gestation of ([facility]) Z3A.37 Return OB: Patient presents today for [...] meniscus -SBS TONSILLECTOMY documented in this encounter [place] [address]-07-2025 History of Present illness Narrative Reason for [...] nursing note reviewed. Exam conducted with a jet aircraft servicer present. Vitals: Estimated body mass index is 41.88 kg/m as calculated from the following: Height as of 09/17/22: 5' 3 . Weight as of this encounter: 236 lb 6.4 oz. BP: 128/82 No LMP recorded. Patient is . ASSESSMENT & PLAN ICD-10-CM 1. Third trimester ([facility]) Z34.93 2. 36 weeks gestation of ([facility]) Z3A.36 POCT urinalysis dipstick manually resulted Return [...] nursing note reviewed. Exam conducted with a jet aircraft servicer present. Vitals: Estimated body mass index is 40.57 kg/m as calculated from the following: Height as of 09/17/22: 5' 3 . Weight as of this encounter: 229 lb. BP: 122/76 No LMP recorded. Patient is . ASSESSMENT & PLAN ICD-10-CM 1. Third trimester ([facility]) Z34.93 CULTURE, GROUP B STREP WITH SUSCEPTIBLITY CULTURE, GROUP B STREP WITH SUSCEPTIBLITY CANCELED: CULTURE, GROUP B STREP WITH SUSCEPTIBLITY 2. 35 weeks gestation of ([facility]) Z3A.35 POCT urinalysis dipstick manually resulted 3. [...] PLAN ICD-10-CM 1. 33 weeks gestation of ([facility]) Z3A.33 POCT urinalysis dipstick manually resulted 2. Third trimester ([facility]) Z34.93 POCT urinalysis dipstick manually resulted 3. Group B streptococcal infection A49.1 4. resulting from in vitro fertilization in first trimester ([facility]) O09.811 Return OB: Patient presents today for [...] nursing note reviewed. Exam conducted with a jet aircraft servicer present. Vitals: Estimated body mass index is 39.47 kg/m as calculated from the following: Height as of 09/17/22: 5' 3 . Weight as of this encounter: 222 lb 12.8 oz. BP: 118/74 No LMP recorded. Patient is . ASSESSMENT & PLAN ICD-10-CM 1. Third trimester ([facility]) Z34.93 POCT urinalysis dipstick manually resulted 2. 31 weeks gestation of ([facility]) Z3A.31 POCT urinalysis dipstick manually resulted Return [...] nursing note reviewed. Exam conducted with a jet aircraft servicer present. Vitals: Estimated body mass index is 38.76 kg/m as calculated from the following: Height as of 09/17/22: 5' 3 . Weight as of this encounter: 218 lb 12.8 oz. BP: 116/70 No LMP recorded. Patient is . ASSESSMENT & PLAN ICD-10-CM 1. 29 weeks gestation of ([facility]) Z3A.29 POCT urinalysis dipstick manually resulted 2. Third trimester ([facility]) Z34.93 POCT urinalysis dipstick manually resulted 3. [...] PLAN ICD-10-CM 1. 27 weeks gestation of ([facility]) Z3A.27 POCT urinalysis dipstick manually resulted 2. Second trimester ([facility]) Z34.92 POCT urinalysis dipstick manually resulted Return [...] Second trimester ([facility]) Z34.92 POCT urinalysis dipstick manually resulted 2. 26 weeks gestation of ([facility]) Z3A.26 POCT urinalysis dipstick manually resulted 3. [...] nursing note reviewed. Exam conducted with a jet aircraft servicer present. Vitals: Estimated body mass index is 35.52 kg/m as calculated from the following: Height as of 09/17/22: 5' 3 . Weight as of this encounter: 200 lb 8 oz. BP: 126/82 No LMP recorded. Patient is . ASSESSMENT & PLAN ICD-10-CM 1. Second trimester ([facility]) Z34.92 POCT urinalysis dipstick manually resulted 2. 20 weeks gestation of ([facility]) Z3A.20 Return OB: Patient presents today for [...] nursing note reviewed. Exam conducted with a jet aircraft servicer present. Vitals: Estimated body mass index is [...] screen, urine; Future Nurse Note: Patient declined [place] billion to one Pt is an [...] embryos: 1 Da??ng Date Details Gest. age BOROKE Concep??on Concep??on: IVF Embryo Transfer Embryo transfer [...] 07/11/2024 3:54 PM documented in this encounter [facility] Work Phone: 06-13-2024 History of [...] Preop diagnosis: Infertility Post op diagnosis: Same Wrapper Operator: none Depth: 7 cm Curve: anterior Distance [...] 06/13/24 11:24 AM documented in this encounter [facility] Work Phone: 06-13-2024 Hospital Discharge instructions Tisha Sparks RN - 06/13/2024 10:43 AM EST Images from the original note were not included. [facility] [address] [place] [address] Home Going Instructions after Embryo Transfer: After [...] in : Advil, Motrin, Ibuprofen, Aleve, Excedrin, [place], Sudafed, and Pepto-Bismol. Avoid aspirin unless you [...] Sparks 10:43 AM documented in this encounter [facility] Work Phone: 06-06-2024 History of [...] BID until further instructed. Message sent to restaurant front manager to schedule at 8:45 slot at [facility] for US and labs. ZOE FRANCIS on 06/06/24 at 1:12 PM. documented in this encounter [facility] Work Phone: 04-06-2024 Hospital Discharge [...] provider. Document Revised: 09/09/2021 Document Reviewed: 09/09/2021 [employer] Patient Education 2023 [employer]. Follow Up Care 03/25/2024 14:07:23 With:Mallory Judd Address: When:Within 6 Month(s) [facility] 03-22-2024 History of Present [...] diagnosis: Female infertility Post op diagnosis: Same Wrapper Operator: Dr. Warren IV Fluids: 600 cc EBL: 5 cc UOP: Not recorded Specimen: Oocytes Complications: None Number of Oocytes right ovary: 16 Ovarian access (right): Easy Number of Oocytes left ovary: 9 Ovarian access (left): Easy Endometrial thickness: n/a Needle type: Single Additional notes: documented in this encounter [facility] Work Phone: 03-22-2024 Nurse Note Patient discharged to home in stable condition via wheelchair to RIDE HOME: Partner's car. Accompanied by RN. ABREU at time of discharge. Discharge instructions given and concerns addressed. Gisell Michel RN 03/22/24 11:08 AM [facility] Work Phone: 03-22-2024 Nurse Note Patient discharged to home in stable condition via wheelchair to RIDE HOME: Partner's car. Accompanied by RN. ABREU at time of discharge. Discharge instructions given and concerns addressed. Gisell Michel RN 03/22/24 11:08 AM documented in this encounter [facility] Work Phone: 03-22-2024 Hospital Discharge instructions Gisell Michel RN - 03/22/2024 8:45 AM EST Images from the original note were not included. [address]. [place] [address] Home Going Instructions after Egg Retrieval: Activity: [...] 2 weeks following your oocyte retrieval. Call [phone] to speak with a Physician or Nurse if you have any concerns. Gisell Michel 8:45 AM [facility] [address]. [place], [place] IVF LAB EMBRYO UPDATE PROTOCOL The [...] biopsied and frozen. Gisell Michel 8:44 AM [facility] [address] [place] [address] Frozen Embryo Transfer Instructions After your egg retrieval, follow up with your IVF nurse within 3-4 days Thursday-Thursday regarding the plan for your frozen embryo transfer (FET) cycle. Your IVF nurse will order and review with you the medications you will be using for the cycle. You will be sent an email from [employer] to fill out your Frozen Embryo Treatment [...] RN 8:44 AM documented in this encounter [facility] Work Phone: 03-20-2024 History of [...] Arrive 60 minutes prior to procedure at [place] [address]. Patient verbalizes understanding of plan and location of procedure. Patient scheduled to go to [facility] tomorrow for post trigger labs Krissy Yanes 03/20/2024 11:01 AM documented in this encounter [facility] Work Phone: 03-19-2024 History of [...] 03/19/24 11:02 AM documented in this encounter [facility] Work Phone: 03-17-2024 History of [...] 03/17/24 1:04 PM documented in this encounter [facility] Work Phone: 03-15-2024 History of [...] time; no further questions. Transferred to the restaurant front manager to schedule appt for 03/17. Allyssa Robles 03/15/24 1:27 PM documented in this encounter [facility] Work Phone: 03-09-2024 History of [...] Yes; PGT-M Test Ready: No ; Company: [employer] PGT order scanned into [employer], confirmed by: LROI on Plan to freeze: embryos [employer] forms/out [...] ordered back in February) and will call [facility] to have them filled as she has met deductible and REECE needs a PA. Allyssa Nailsaney 03/09/24 2:33 PM documented in this encounter [facility] Work Phone: 02-23-2024 Nurse Note Patient discharged to home in stable condition via wheelchair accompanied by this RN to RIDE HOME: Partner's car. Discharge instructions given and concerns addressed. Patient verbalizes understanding of all information provided and is agreeable. [facility] 02-23-2024 Nurse Note Patient discharged [...] amount of bleeding. documented in this encounter [facility] Work Phone: 02-23-2024 Nurse Note Patient up to bathroom independently, no complaints of pain or dizziness, able to void without issue, reports scant amount of bleeding. [facility] Work Phone: 02-23-2024 History of [...] diagnosis: Female infertility Post op diagnosis: Same Wrapper Operator: none IV Fluids: 500 cc EBL: 5 cc UOP: Not recorded Specimen: Oocytes Complications: None Number of Oocytes right ovary: 17 Ovarian acc ss (right): Easy Number of Oocytes left ovary: 13 Ovarian access (left): Easy Endometrial thickness: n/a Needle type: Single Additional notes: documented in this encounter [facility] Work Phone: 10-22-2024 Hospital Discharge instructions Donya Rosas RN - 02/23/2024 7:23 AM EDT Images from the original note were not included. [facility] [address] [place] [address] Home Going Instructions after Egg Retrieval: Activity: [...] 2 weeks following your oocyte retrieval. Call [phone] to speak with a Physician or Nurse if you have any concerns. DONYA ROSAS 7:[address]. [place], [place] IVF LAB EMBRYO UPDATE PROTOCOL The [...] biopsied and frozen. DONYA ROSAS 7:[address] [place], [place] IVF LAB EMBRYO UPDATE PROTOCOL The [...] biopsied and frozen. DONYA ROSAS 7:23 AM [facility] [address] [place] [address] Frozen Embryo Transfer Instructions After your egg retrieval, follow up with your IVF nurse within 3-4 days Thursday-Thursday regarding the plan for your frozen embryo transfer (FET) cycle. Your IVF nurse will order and review with you the medications you will be using for the cycle. You will be sent an email from [employer] to fill out your Frozen Embryo Treatment [...] RN 7:32 AM documented in this encounter [facility] Work Phone: 02-21-2024 History of [...] 02/21/2024 9:09 AM documented in this encounter [facility] Work Phone: 02-20-2024 History of [...] Beth Judge RN documented in this encounter [facility] Work Phone: 02-18-2024 History of [...] Beth Judge RN documented in this encounter [facility] Work Phone: 02-16-2024 History of [...] Will look into getting insulin syringes from [facility]. Team will contact patient later today with results and plan. Krissy Yanes 02/16/2024 7:27 AM LM with patient with plan to start Cetrotide today, drop FSH to 225 units and continue Menopur 75 units. Patient is already scheduled for 02/17 for repeat follicle scan and e2. Krissy Yanes 02/16/24 1:34 PM documented in this encounter [facility] Work Phone: 02-09-2024 History of [...] Yes; PGT-M Test Ready: No /A; Company: [employer] PGT order scanned into [employer], confirmed by: LORI on 02/09/2024 Plan to freeze: embryos [employer] forms/out waiver complete: Yes Does patient have medications onhand? Yes Pharmacy: [facility] Boarding pass signed off: Yes LORETTA on 02/05/2024 Date of Female STDs: 2023 Date of Male STDs: 2023 Medically complex on boarding pass: no If indicated, is PAT consult complete? N/A SPERM: partner Fresh with Frozen Backup Number of vials confirmed: 1 on 02/09/24 by LORETTA Additional details: Allyssa Robles 02/09/2024 7:34 AM Beti Warren 02/09/24 12:44 PM TC to pt Sanjay Degroot answered; confirmed plan for meds to start on 02/12 as per calendar and return on 02/15 as scheduled; no further questions. Allyssa Robles 02/09/24 1:16 PM documented in this encounter [facility] Work Phone: 01-28-2024 Nurse Note Patient discharged to home in stable condition via wheelchair to RIDE HOME: Partner's car. Discharge instructions given and concerns addressed. [facility] Work Phone: 01-28-2024 Nurse Note Patient discharged to home in stable condition via wheelchair to RIDE HOME: Partner's car. Discharge instructions given and concerns addressed. documented in this encounter [facility] Work Phone: 01-28-2024 History of [...] no immediate complications documented in this encounter [facility] Work Phone: 01-28-2024 Hospital Discharge instructions Ira Lopez RN - 01/28/2024 8:20 AM EDT Images from the original note were not included. [address]. [place] [id number] Home Going Instructions after Polypectomy: Activity: We [...] Lopez 8:20 AM documented in this encounter [facility] Work Phone: 01-14-2024 History of [...] nursing note reviewed. Exam conducted with a jet aircraft servicer present. Vitals: Estimated body mass index is [...] EVALUATION / TREATMENT Saw KELSY physician in [facility] Dr. 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 female who presents with Infertility TTC x 2 years PRIOR EVALUATION / TREATMENT Saw KELSY physician in [facility] Dr. 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 Meyer [phone] Recommend repeat SA with 48-72 hours abstinence [...] 2023 8:52 AM documented in this encounter [facility] Work Phone: 2023 Instructions SMITH Mina - 2023 8:45 AM EDT Recommend Male Vitamins Discussed as follows: Co-Q10 200 mg daily L-Carnitine 200-500 mg daily Vitamin C 500 mg daily Recommend Consult with Dr. Meyer [phone] Recommend repeat SA with 48-72 hours abstinence Recommend Female Vitamins: vitamin Vitamin D (total of 2,000 international units daily) CoQ10 600 mg daily documented in this encounter [facility] Work Phone: 10-02-2023 Hospital Discharge [...] food choices, such as grocery stores and [employer]. What are the signs or symptoms? The [...] and how much exercise you get. Take bfdm-etd-ouywrcn and prescription medicines only as told by [...] provider. Document Revised: 11/26/2021 Document Reviewed: 11/26/2021 [employer] Patient Education 2022 [employer]. 10/02/2023 12:54:15 BMI for Adults BMI for [...] numbers. This can be done either in Japanese (U.S.) or metric measurements. Note that charts and online BMI calculators are available to help you find your BMI quickly and easily without having to do these calculations yourself. To calculate your BMI in Japanese (U.S.) measurements: 1.Measure your weight in pounds [...] Centers for Disease Control and Prevention: www.cdc.gov Australian Heart Association: www.heart.org National Heart, Lung, and Blood Seaton: www.nhlbi.nih.gov Summary Body mass index (BMI) is a number that is calculated from a person's weight and height. BMI may help estimate how much of a person's weight is composed of fat. BMI can help identify those who may be at higher risk for certain medical problems. BMI can be measured using Japanese measurements or metric measurements. BMI charts are used to identify whether you are underweight, normal weight, overweight, or obese. This information is not intended to replace advice given to you by your health care provider. Make sure you discuss any questions you have with your health care provider. Document Revised: 01/11/2020 Document Reviewed: 11/18/2019 [employer] Patient Education 2022 [employer]. 10/02/2023 12:54:13 Migraine Headache Migraine Headache A [...] Follow these instructions at home: Medicines Take lfbo-oki-dnsehuu and prescription medicines only as told by your health care provider. Ask your health care provider if the medicine prescribed to you: ?Requires you to avoid driving or using heavy machinery. ?Can cause constipation. You may need to take these actions to prevent or treat constipation: ?Drink enough fluid to keep your urine pale yellow. ?Take flhd-zno-canmvjg or prescription medicines. ?Eat foods that are [...] provider. Document Revised: 08/12/2019 Document Reviewed: 06/02/2019 [employer] Patient Education 2022 [employer] 10/02/2023 12:54:11 Form - Headache Record [...] provider. Document Revised: 09/18/2021 Document Reviewed: 09/18/2021 [employer] Patient Education 2022 [employer]. 10/02/2023 12:54:08 Eczema Eczema Eczema refers to [...] these instructions at home: Take or apply roqv-lnt-ghbrfpi and prescription medicines only as told by your health care provider. Use creams or ointments to moisturize your skin. Do not use lotions. Learn what triggers or irritates your symptoms so you can avoid these things. Treat symptom flare-ups quickly. Do not scratch your skin. This can make your rash worse. Keep all follow-up visits. This is important. Where to find more information Australian Academy of Dermatology: aad.org National Eczema Association: [...] provider. Document Revised: 01/28/2021 Document Reviewed: 01/28/2021 [employer] Patient Education 2022 [employer]. 10/02/2023 12:54:06 BMI for Adults BMI for [...] numbers. This can be done either in Japanese (U.S.) or metric measurements. Note that charts and online BMI calculators are available to help you find your BMI quickly and easily without having to do these calculations yourself. To calculate your BMI in Japanese (U.S.) measurements: 1.Measure your weight in pounds [...] Centers for Disease Control and Prevention: www.cdc.gov Australian Heart Association: www.heart.org National Heart, Lung, and Blood Seaton: www.nhlbi.nih.gov Summary Body mass index (BMI) is a number that is calculated from a person's weight and height. BMI may help estimate how much of a person's weight is composed of fat. BMI can help identify those who may be at higher risk for certain medical problems. BMI can be measured using Japanese measurements or metric measurements. BMI charts are used to identify whether you are underweight, normal weight, overweight, or obese. This information is not intended to replace advice given to you by your health care provider. Make sure you discuss any questions you have with your health care provider. Document Revised: 01/11/2020 Document Reviewed: 11/18/2019 [employer] Patient Education 2022 [employer]. Follow Up Care 09/22/2023 13:18:17 With:Princess Dumont FAM, [facility] Address: [address], [address] [place] [id number]- Business (1) When:07/08/2023 Comments:for f/u [facility] 08-27-2023 Hospital Discharge instructions [...] 1.Identify the foods that contain carbohydrates: Rice. [place]. Milk. Strawberries. 2.Calculate how many servings you [...] and snacks. Where to find more information Australian Diabetes Association: diabetes.org Centers for Disease Control [...] provider. Document Revised: 11/21/2020 Document Reviewed: 11/21/2020 [employer] Patient Education 2022 [employer] 08/27/2023 19:11:56 Calorie Counting for Weight [...] provider. Document Revised: 05/31/2020 Document Reviewed: 05/31/2020 [employer] Patient Education 2022 [employer]. 08/27/2023 19:11:54 Exercising to Lose Weight Exercising [...] your health care provider or diet and nutritional yeast supervisor (dietitian). This may include: ?Eating fewer calories. [...] provider. Document Revised: 06/16/2021 Document Reviewed: 06/16/2021 [employer] Patient Education 2022 [employer]. 08/27/2023 19:11:53 BMI for Adults BMI for [...] numbers. This can be done either in Japanese (U.S.) or metric measurements. Note that charts and online BMI calculators are available to help you find your BMI quickly and easily without having to do these calculations yourself. To calculate your BMI in Japanese (U.S.) measurements: 1.Measure your weight in pounds [...] Centers for Disease Control and Prevention: www.cdc.gov Australian Heart Association: www.heart.org National Heart, Lung, and Blood Seaton: www.nhlbi.nih.gov Summary Body mass index (BMI) is a number that is calculated from a person's weight and height. BMI may help estimate how much of a person's weight is composed of fat. BMI can help identify those who may be at higher risk for certain medical problems. BMI can be measured using Japanese measurements or metric measurements. BMI charts are used to identify whether you are underweight, normal weight, overweight, or obese. This information is not intended to replace advice given to you by your health care provider. Make sure you discuss any questions you have with your health care provider. Document Revised: 01/11/2020 Document Reviewed: 11/18/2019 [employer] Patient Education 2022 [employer]. 08/27/2023 19:11:48 Musculoskeletal Pain Musculoskeletal Pain Musculoskeletal [...] mouth or applied to the skin. Take fbxh-rwf-bpatnqh and prescription medicines only as told by [...] provider. Document Revised: 08/23/2020 Document Reviewed: 08/01/2020 [employer] Patient Education 2022 [employer] 08/27/2023 19:05:09 Cervicogenic Headache Cervicogenic Headache [...] your primary health care provider, a painter barrel, a neurologist, and a physical therapist. Follow these instructions at home: Take omdl-eea-hillblz and prescription medicines only as told by [...] your primary health care provider, a painter barrel, a neurologist, and a physical therapist. This information is not intended to replace advice given to you by your health care provider. Make sure you discuss any questions you have with your health care provider. Document Revised: 10/24/2021 Document Reviewed: 10/24/2021 [employer] Patient Education 2022 [employer] 08/27/2023 19:05:07 Form - Headache Record [...] Follow these instructions at home: Medicines Take gaxc-fmp-apdwhqz and prescription medicines only as told by [...] for Headache and Migraine Patients (CHAMP): headachemigraine.org Australian Migraine Foundation: americanmigrainefoundation.org National Headache Foundation: headaches.org [...] provider. Document Revised: 06/06/2020 Document Reviewed: 06/06/2020 [employer] Patient Education 2022 [employer]. 08/27/2023 19:05:03 BMI for Adults BMI for [...] numbers. This can be done either in Japanese (U.S.) or metric measurements. Note that charts and online BMI calculators are available to help you find your BMI quickly and easily without having to do these calculations yourself. To calculate your BMI in Japanese (U.S.) measurements: 1.Measure your weight in pounds [...] Centers for Disease Control and Prevention: www.cdc.gov Australian Heart Association: www.heart.org National Heart, Lung, and Blood Seaton: www.nhlbi.nih.gov Summary Body mass index (BMI) is a number that is calculated from a person's weight and height. BMI may help estimate how much of a person's weight is composed of fat. BMI can help identify those who may be at higher risk for certain medical problems. BMI can be measured using Japanese measurements or metric measurements. BMI charts are used to identify whether you are underweight, normal weight, overweight, or obese. This information is not intended to replace advice given to you by your health care provider. Make sure you discuss any questions you have with your health care provider. Document Revised: 01/11/2020 Document Reviewed: 11/18/2019 [employer] Patient Education 2022 [employer]. 08/27/2023 19:05:01 Health Maintenance, Female Health Maintenance, [...] provider. Document Revised: 09/09/2021 Document Reviewed: 09/09/2021 [employer] Patient Education 2022 [employer]. Follow Up Care 08/17/2023 08:42:02 With:Dionte MARI, TIARA Martinez, [facility] Address: [facility] [address], [facility] [address] [address]- When:Within 6 Week(s) Comments:weight loss and headaches [facility] 02-19-2023 Evaluation + Plan note Future Scheduled TestsU Protein/Creat Ratio 02/19/23HgbA1c 02/19/23Microalbumin Level Urine 02/19/23TSH With T4fr Reflex 02/19/23Vitamin D 25 Hydroxy 02/19/23CBC w/ Auto Diff 02/19/23Comprehensive Metabolic Panel 02/19/23Lipid Panel 02/19/23XR Spine Cervical 4 or 5 Views 02/19/23 [facility] 02-19-2023 Hospital Discharge instructions [...] your primary health care provider, a painter barrel, a neurologist, and a physical therapist. Follow these instructions at home: Take xjpf-diq-esohxsr and prescription medicines only as told by [...] your primary health care provider, a painter barrel, a neurologist, and a physical therapist. This information is not intended to replace advice given to you by your health care provider. Make sure you discuss any questions you have with your health care provider. Document Revised: 10/24/2021 Document Reviewed: 10/24/2021 [employer] Patient Education 2022 [employer] 02/19/2023 08:34:09 Migraine Headache Migraine Headache A [...] Follow these instructions at home: Medicines Take wbkd-foe-udsfmie and prescription medicines only as told by your health care provider. Ask your health care provider if the medicine prescribed to you: ?Requires you to avoid driving or using heavy machinery. ?Can cause constipation. You may need to take these actions to prevent or treat constipation: ?Drink enough fluid to keep your urine pale yellow. ?Take nkqw-xso-ppvlphy or prescription medicines. ?Eat foods that are [...] provider. Document Revised: 08/12/2019 Document Reviewed: 06/02/2019 [employer] Patient Education 2022 [employer] 02/19/2023 08:34:03 Form - Headache Record [...] provider. Document Revised: 09/18/2021 Document Reviewed: 09/18/2021 [employer] Patient Education 2022 [employer] 02/19/2023 01:02:45 General Headache Without Cause [...] help with your condition: Managing pain Take xfsk-ylp-moxvoup and prescription medicines only as told by [...] provider. Document Revised: 09/18/2021 Document Reviewed: 09/18/2021 [employer] Patient Education 2022 [employer] 02/19/2023 01:02:42 Form - Headache Record [...] provider. Document Revised: 09/18/2021 Document Reviewed: 09/18/2021 [employer] Patient Education 2022 [employer]. 02/19/2023 01:02:37 Cervicogenic Headache Cervicogenic Headache In [...] your primary health care provider, a painter barrel, a neurologist, and a physical therapist. Follow these instructions at home: Take azki-znm-lavhrio and prescription medicines only as told by [...] your primary health care provider, a painter barrel, a neurologist, and a physical therapist. This information is not intended to replace advice given to you by your health care provider. Make sure you discuss any questions you have with your health care provider. Document Revised: 10/24/2021 Document Reviewed: 10/24/2021 [employer] Patient Education 2022 [employer]. 02/19/2023 01:02:35 Chronic Migraine Headache Chronic Migraine [...] Follow these instructions at home: Medicines Take ostj-biv-vsytstf and prescription medicines only as told by [...] for Headache and Migraine Patients (CHAMP): headachemigraine.org Australian Migraine Foundation: americanmigrainefoundation.org National Headache Foundation: headaches.org [...] provider. Document Revised: 06/06/2020 Document Reviewed: 06/06/2020 [employer] Patient Education 2022 [employer]. Follow Up Care 02/17/2023 08:10:14 With:Princess Dumont FAM, MED Address: [address] [place] [phone] When:Within 1 Month(s) Comments:headaches. neck pain With:Princess Dumont FAM, MED Address: [address] [place] [phone] When:Within 1 Year(s) Comments:annual wellness, anxiety/ depression [facility] 07-24-2021 Hospital Discharge instructions [...] height. This can be done either in Japanese (U.S.) or metric measurements. Note that charts are available to help you find your BMI quickly and easily without having to do these calculations yourself. To calculate your BMI in Japanese (U.S.) measurements, your health care provider will: [...] medical problems. BMI can be measured using Japanese measurements or metric measurements. To interpret your [...] 12/30/2004 Document Revised: 04/02/2018 Document Reviewed: 03/03/2018 [employer] Patient Education 2020 [employer]. 07/24/2021 17:16:58 Health Maintenance, Female Health Maintenance, [...] 11/03/2011 Document Revised: 04/13/2019 Document Reviewed: 04/13/2019 [employer] Patient Education 2020 [employer]. Follow Up Care 06/26/2021 18:00:45 With:Leigh Ann Covington CNP Address: When: only if needed [facility] Evaluation + Plan note Future Appointments Appointment Date:10/03/2021 01:00:00 PM Scheduled Provider:Naya ABDI Location:[facility] [place] Appointment Type:[facility] Evaluation + Plan note Future Appointments Appointment Date:03/25/2023 07:00:00 AM Scheduled Provider:Princess Dumont Location:[facility] Appointment Type:FM Open Future Scheduled TestsU Protein/Creat Ratio 02/19/23HgbA1c 02/19/23Microalbumin Level Urine 02/19/23TSH With T4fr Reflex 02/19/23Vitamin D 25 Hydroxy 02/19/23CBC w/ Auto Diff 02/19/23Comprehensive Metabolic Panel 02/19/23Lipid Panel 02/19/23XR Spine Cervical 4 or 5 Views 02/19/23 [facility] Evaluation + Plan note Future Appointments Appointment Date:10/21/2023 07:20:00 AM Scheduled Provider:Princess Dumont Location:[facility] Appointment Type: Open Future Scheduled TestsTSH With T4fr Reflex 02/19/23Vitamin D 25 Hydroxy 02/19/23CBC w/ Auto Diff 02/19/23Comprehensive Metabolic Panel 02/19/23Lipid Panel 02/19/23XR Spine Cervical 4 or 5 Views 02/19/23 [facility] Evaluation + Plan note Future Appointments Appointment Date:10/05/2024 07:00:00 AM Scheduled Provider:Mallory Judd Location:[facility] Appointment Type: Open [facility] Evaluation note Diagnosis Endometrial polyp Polyp of corpus uteri documented in this encounter [facility] Work Phone: Evaluation note* Diagnosis Pre-procedure lab exam Pre-procedural laboratory examination Female infertility Female infertility of unspecified origin documented in this encounter [facility] Work Phone: [phone] note* Diagnosis Female infertility Female infertility of unspecified origin documented in this encounter [facility] Work Phone: [phone] note* Diagnosis Female infertility Female infertility of unspecified origin documented in this encounter [facility] Work Phone: [phone] note* Diagnosis Encounter for assisted reproductive fertility cycle Encounter for assisted reproductive fertility procedure cycle documented in this encounter [facility] Work Phone: [phone] note* Diagnosis Female infertility Female infertility of unspecified origin Pre-procedure lab exam Pre-procedural laboratory examination documented in this encounter [facility] Work Phone: [phone] note* Diagnosis Female infertility Female infertility of unspecified origin documented in this encounter [facility] Work Phone: [phone] note* Diagnosis Female infertility Female infertility of unspecified origin documented in this encounter [facility] Work Phone: [phone] note* Diagnosis Female infertility Female infertility of unspecified origin documented in this encounter [facility] Work Phone: [phone] note* Diagnosis Encounter for assisted reproductive fertility cycle Encounter for assisted reproductive fertility procedure cycle documented in this encounter [facility] Work Phone: [phone] note* Diagnosis Encounter for assisted reproductive fertility cycle Encounter for assisted reproductive fertility procedure cycle documented in this encounter [facility] Work Phone: [phone] note* Diagnosis Well woman exam with routine [...] other specified origin documented in this encounter [facility] Work Phone: [phone] note* Diagnosis Fertility testing [Z31.41]- Primary Fertility testing 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 [Z31.81, N97.8] documented in this encounter [facility] Work Phone: Evaluation note* Diagnosis Endometrial polyp Polyp of corpus uteri documented in this encounter [facility] Work Phone: Evaluation note* Diagnosis Female infertility Female infertility of unspecified origin documented in this encounter [facility] Work Phone: Evaluation note* Diagnosis Encounter for assisted reproductive fertility cycle Encounter for assisted reproductive fertility procedure cycle documented in this encounter [facility] Work Phone: Evaluation note* Diagnosis Encounter for assisted reproductive fertility cycle Encounter for assisted reproductive fertility procedure cycle Encounter for test, result unknown documented in this encounter [facility] Work Phone: Evaluation note* Diagnosis Encounter to determine viability of , single or unspecified fetus documented in this encounter [facility] Work Phone: Evaluation note* Diagnosis Missed menses [...] note* Diagnosis (HHS-HCC) documented in this encounter [facility] Work Phone: Evaluation note* Diagnosis [...] note* Diagnosis Third trimester (HHS-HCC) state, incidental 37 weeks gestation of (HHS-HCC) [facility] Narrative No data available for this section [facility] Hospital Discharge instructions No data available for this section [facility] Progress note No data available for this section [facility] Reason for referral (narrative)* Consultation (Routine) - Authorized Specialty Diagnoses / Procedures Referred By Alejandro hyatt Referred To Contact Genetics Diagnoses Genetic screening Trish Thorpe APRN-CNP [address] [place] [address] Referral ID Status Reason Start Date Expiration Date Visits Requested Visits Authorized [id number] Authorized Specialty Services Required 2023 12/10/2024 1 1 [facility] Work Phone: reason for visit Narrative* Imaging (Routine) - Authorized Specialty Diagnoses / Procedures Referred By Contac t Referred To Contact Radiology Diagnoses Female infertility Procedures KELSY US Pelvis Limited Follicles - Follicle Studies Performed America Chavez, WOOL BROKER-SOURCING MANAGER [address] [place] [address] Phone: tel: fax: Referral ID Status Reason Start Date Expiration Date Visits Requested Visits Authorized [id number] Authorized Perform Procedure 02/02/2024 02/01/2025 8 8 [facility] Work Phone: reason for visit Narrative* Imaging (Routine) - Pending Review Specialty Diagnoses / Procedures Referred By Contac t Referred To Contact Radiology Diagnoses Female infertility Procedures KELSY US Pelvis Limited Follicles - Follicle Studies Performed America Chavez, WOOL BROKER-SOURCING MANAGER [address] [place] [address] Phone: tel: fax: Referral ID Status Reason Start Date Expiration Date Visits Requested Visits Authorized [id number] Pending Review Perform Procedure 02/02/2024 02/01/2025 8 8 [facility] Work Phone: reason for visit Narrative* Procedure (Routine) - Authorized Specialty Diagnoses / Procedures Referred By Alejandro t Referred To Contact Reproductive Endocrinology and Infertility Diagnoses Encounter for assisted reproductive fertility cycle Procedures Egg Retrieval VT FOLLICLE PUNCTURE OOCYTE RETRIEVAL ANY METHOD CHG US GUIDANCE ASPIRATION OVA IMG S&I CHG OOCYTE ID FROM FOLLICULAR FLU CHG BX OOCYTE POLR BDY/AMBER BLST MICROTQ <= 5 AMBER CHG BX OOCYTE MICROTQ >5 AMBER CHG UNLISTED MOLECULAR PATHOLOGY PROCEDURE CHG CYTOGENETICS&MOLEC CYTOGENETICS INTERP&REP Beth Warren MD [address] [place] [address] Phone: tel: fax: Referral ID Status Reason Start Date Expiration Date V isits Requested Visits Authorized [id number] Authorized 01/27/2024 01/26/2025 1 1 [facility] Work Phone: reason for visit Narrative* Imaging (Routine) - Authorized Specialty Diagnoses / Procedures Referred By Alejandro t Referred To Contact Radiology Diagnoses Female infertility Procedures KELSY US Pelvis Limited Follicles - Follicle Studies Performed Donya Abernathy, CHRISTEN-SOURCING MANAGER [address] [facility] [place], [address], [place] [address] Phone: tel: fax: Referral ID Status Reason Start Date Expiration Date Visits Requested Visits Authorized [id number] Authorized Perform Procedure 4 03/01/2025 8 8 [facility] Work Phone: Reason for visit Narrative* Procedure (Routine) - Authorized Specialty Diagnoses / Procedures Referred By Alejandro t Referred To Contact Reproductive Endocrinology and Infertility Diagnoses Encounter for assisted reproductive fertility cycle Procedures Egg Retrieval VT FOLLICLE PUNCTURE OOCYTE RETRIEVAL ANY METHOD CHG US GUIDANCE ASPIRATION OVA IMG S&I CHG OOCYTE ID FROM FOLLICULAR FLU CHG BX OOCYTE POLR BDY/AMBER BLST MICROTQ <= 5 AMBER CHG BX OOCYTE MICROTQ >5 AMBER CHG UNLISTED MOLECULAR PATHOLOGY PROCEDURE CHG CYTOGENETICS&MOLEC CYTOGENETICS INTERP&REP Donya Abernathy, WOOL BROKER-SOURCING MANAGER [address] [facility] [place] [facility], [address], [place] [address] Phone: tel: fax: Referral ID Status Reason Start Date Expiration Date V isits Requested Visits Authorized [id number] Authorized 03/01/2024 03/01/2025 1 0 [facility] Work Phone: Reason for visit Narrative* Imaging (Routine) - Authorized Specialty Diagnoses / Procedures Referred By Contcecilia t Referred To Contact Radiology Diagnoses Female infertility Procedures KELSY US Endometrial Lining Check Donya Abernathy, WOOL BROKER-SOURCING MANAGER [address] [facility] [place] [facility], [address], [place] [address] Phone: tel: fax: Referral ID Status Reason Start Date Expiration Date Visits Requested Visits Authorized [id number] Authorized Perform Procedure 4 02/23/2025 5 5 [facility] Work Phone: Reason for visit Narrative* Procedure (Routine) - Authorized Specialty Diagnoses / Procedures Referred By Alejandro t Referred To Contact Reproductive Endocrinology and Infertility Diagnoses Encounter for assisted reproductive fertility cycle Procedures Embryo Transfer VT EMBRYO TRANSFER INTRAUTERINE CHG ULTRASONIC GUIDANCE INTRAOPERATIVE CHG THAWING CRYOPRESERVED EMBRYO CHG ASSTD EMBRYO HATCHING MICROTQS ANY METH CHG PREPJ EMBRYO TR Juan Chavarria MD [address], [address] [place] [address] Phone: tel: fax: Referral ID Status Reason Start Date Expiration Date V isits Requested Visits Authorized [id number] Authorized 06/10/2024 06/10/2025 1 1 [facility] Work Phone: Reason for visit Narrative* Imaging (Routine) - Authorized Specialty Diagnoses / Procedures Referred By Alejandro Referred To Contact Radiology Diagnoses ([facility]) Procedures US OB detail anatomy Layo Courtney DO [address] [facility] [address], [place] [place] [address] Phone: tel: fax: Referral ID Status Reason Start Date Expiration Date Visits Requested Visits Authorized [id number] Authorized Perform Procedure 08/15/2024 08/15/2025 1 1 [facility] Work Phone: Summary Purpose Family [...] Endometrial polyp Procedures Polypectomy Juan Chavarria MD [address], [address] [place] [address] [address] [place] [address] Referral ID Status Reason Start Date Expiration Date V isits Requested Visits Authorized [id number] Authorized 01/25/2024 01/24/2025 1 1 Additional Source Comments INFORMATION SOURCE (unrecogn ized section and content) DATE CREATED AUTHOR 08/01/2022 [facility] DATE CREATED AUTHOR AUTHOR'S ORGANIZ ATION 04/04/2024 [facility] DATE CREATED AUTHOR AUTHOR'S ORGANIZ ATION 06/15/2024 [facility] DATE CREATED AUTHOR AUTHOR'S ORGANIZ ATION 07/02/2024 [facility] DATE CREATED AUTHOR AUTHOR'S ORGANIZ ATION 07/14/2024 [facility] DATE CREATED AUTHOR AUTHOR'S ORGANIZ ATION 10/11/2024 [facility] DATE CREATED AUTHOR AUTHOR'S ORGANIZ ATION 02/16/2025 [facility] d[facility] Specialists EPIC Patient Care team informatio n (unrecognized section and content) Licensed Insurance Sales Agent Relationship Specialty Start Date End Date Allyssa Robles RN Registered Nurse Reproductive Endocrinology and Infertility 12/25/23 Licensed Insurance Sales Agent Relationship Specialty Start Date End Date Allyssa Robles RN Registered Nurse Reproductive Endocrinology and Infertility 12/25/23 Licensed Insurance Sales Agent Relationship Specialty Start Date End Date Allyssa Rboles RN Registered Nurse Reproductive Endocrinology and Infertility 12/25/23 Licensed Insurance Sales Agent Relationship Specialty Start Date End Date Allyssa Robles RN Registered Nurse Reproductive Endocrinology and Infertility 12/25/23 Licensed Insurance Sales Agent Relationship Specialty Start Date End Date Allyssa Robles RN Registered Nurse Reproductive Endocrinology and Infertility 12/25/23 Licensed Insurance Sales Agent Relationship Specialty Start Date End Date Allyssa Robles RN Registered Nurse Reproductive Endocrinology and Infertility 12/25/23 Licensed Insurance Sales Agent Relationship Specialty Start Date End Date Allyssa Robles RN Registered Nurse Reproductive Endocrinology and Infertility 12/25/23 Licensed Insurance Sales Agent Relationship Specialty Start Date End Date Allyssa Robles RN Registered Nurse Reproductive Endocrinology and Infertility 12/25/23 Licensed Insurance Sales Agent Relationship Specialty Start Date End Date Allyssa Robles RN Registered Nurse Reproductive Endocrinology and Infertility 12/25/23 Licensed Insurance Sales Agent Relationship Specialty Start Date End Date Ginger Torres LPN Licensed Practical Nurse 12/10/23 Licensed Insurance Sales Agent Relationship Specialty Start Date End Date Allyssa Robles RN Registered Nurse Reproductive Endocrinology and Infertility 12/25/23 Licensed Insurance Sales Agent Relationship Specialty Start Date End Date Allyssa Robles RN Registered Nurse Reproductive Endocrinology and Infertility 12/25/23 Licensed Insurance Sales Agent Relationship Specialty Start Date End Date Allyssa Robles RN Registered Nurse Reproductive Endocrinology and Infertility 12/25/23 Licensed Insurance Sales Agent Relationship Specialty Start Date End Date Allyssa Robles RN Registered Nurse Reproductive Endocrinology and Infertility 12/25/23 Licensed Insurance Sales Agent Relationship Specialty Start Date End Date Allyssa Robles RN Registered Nurse Reproductive Endocrinology and Infertility 12/25/23 Reason for Visit (unrecogniz ed section and content) Specialty Diagnoses / Procedures Referred By Alejandro hyatt Referred To Contact Diagnoses Endometrial polyp Procedures Polypectomy Juan Chavarria MD [address] [facility] [address], [place] [address] [address] [place] [address] Referral ID Status Reason Start Date Expiration Date V isits Requested Visits Authorized [id number] Authorized 01/25/2024 01/24/2025 1 1 Specialty Diagnoses / Procedures Referred By Alejandro hyatt Referred To Contact Radiology Diagnoses Female infertility Procedures KELSY US Pelvis Limited Follicles - Follicle Studies Performed America Chavez, WOOL BROKER-SOURCING MANAGER [address] [place] [address] Referral ID Status Reason Start Date Expiration Date Visits Requested Visits Authorized [id number] Authorized Perform Procedure 02/02/2024 02/01/2025 8 8 [...] PRIMARY CLINICAL RECORDS. [facility]. provides no warranty or guarantee of the accuracy or completeness of information in this document.
--- NOTE | 2025-02-17 16:37 | ECG_ITS ---
[facility] Test Date: 2025-02-17 Pat Name: OLENA ROMERO Department: Room: [facility] Gender: Female Nursing Service Administrator: : 1995 Requested By: RULA SMITH Order Number: [id number] Reading MD: CARLOS A OROZCO M.D. Measurements Intervals [place] Rate: 120 P: 29 MN: 100 QRS: 25 QRSD: 77 T: -7 QT: 301 QTc: 426 Interpretive Statements SINUS TACHYCARDIA WITH SHORT [place] INTERVAL ABNORMAL RHYTHM ECG No previous ECG available for comparison Electronically Signed On 02-17-2025 18:09:41 EDT by CARLOS A OROZCO M.D.
[2025-02-17] MEDS: 0.9 % SODIUM CHLORIDE 1,000 ML 1000 ML IV (16:55)
[2025-02-17 18:19] LABS: Hematocrit 39.2 % (36.0-48.0); Hemoglobin 13.3 g/dL (12.0-16.0); Immature Granulocytes Abs Auto 0.12 10^3/uL (0.00-0.03); Immature Granulocytes Pct Auto 1.1 % (0.0-0.5); Lymphocytes Absolute Auto 2.5 10^3/uL (1.2-3.8); Mean Corpuscular HGB Conc 33.9 g/dL (29.9-35.2); Mean Corpuscular Hemoglobin 31.0 pg (26.7-34.0); Mean Corpuscular Volume 91.4 fL (81.0-99.0); Platelet Count 147 10^3/uL (150-450); Red Blood Count 4.29 10^6/uL (4.20-5.40); White Blood Count 10.7 10^3/uL (4.0-11.0)
[2025-02-17 18:21] LABS: Total Protein Urine Random <6.0 mg/dL (<=11.9)
[2025-02-17 18:29] LABS: Alanine Aminotransferase 21 U/L (14-59); Aspartate Amino Transferase 21 U/L (15-37); Blood Urea Nitrogen 7.0 mg/dL (7.0-18.0); Estimated GFR (African America >60 (>=60 mL/min/1.73m^2); Estimated GFR (Non-African Ame >60 (>=60 mL/min/1.73m^2); Uric Acid 5.0 mg/dL (2.6-6.0)
--- OUTSIDE RECORDS SUMMARY | 2025-02-17 18:48 | XMS_ITS | CCD ---
Author Organization [facility] [employer] Care Team Providers Care Booster Station Operator Name Role Phone Rachana LYONS Primary Care [...] Attending Unavailable SISSY, BRANDY Attending Unavailable SHERWIN, ALYO Attending Unavailable SHERWIN, LAYO Attending Unavailable SHERWIN, [...] Drug Allergy 03-16-2023 Unknown (qualifier value), Unknown [facility] Work Phone: (20 sources) Latex; Translations: [Latex] Drug allergy 03-16-2023 Rash [facility] Work Phone: (20 sources) nickel; Translations: [Nickel] Drug Allergy 03-16-2023 Rash, Itching [facility] Work Phone: [...] Do not use to face, armpits, groin., [facility]/pharmacy #[id number], 162, cm, 10/02/23 11:23:00 EDT, Height/Length Dosing, 76.7, kg, 10/02/23 11:23:00 EDT, Weight Dosing Start Date: 10/02/23 Status: Ordered Start: 02-10-2022 clobetasol pro pionate 0.05% top oint 1 bonifacio, Topical, BID, 45 gram, Refill(s) 0, Apply a thin film to affected area. Do not use to face, armpits, groin., [facility], 160, cm, 07/24/21 17:02:00 EDT, Height/Length Dosing, 71.6, kg, 07/24/21 17:02:00 EDT, Weight Dosing Start Date: 02/10/22 Status: Ordered Start: 01-29-2021 clobetasol pro pionate 0.05% top oint 1 bonifacio, Topical, BID, 45 gram, Refill(s) 1, [facility] 1985, 160, cm, 01/29/21 [...] spasm, # 30 tab(s), Refills(s) 1, Pharmacy: [facility]/pharmacy #[id number], 162, cm, 02/19/23 7:51:00 [...] Refill(s) 6, Therapeutic tx; may refill early, [facility] 1986, 160, cm, 09/27/20 [...] Refill(s) 6, Therapeutic tx; may refill early, [facility] 1986, 160, cm, 09/27/20 [...] Indications: Pruritus of in second trimester ([facility]) Day 1: 6 tablets Day 2: 5 tablets Day 3: 4 tablets Day 4: 3 tablets Day 5: 2 tablets Day 6: 1 tablet 21 tablet 10/04/2024 12/06/2024 Discontinued Start: 10-04-2024 methylPREDNISo lone (Medrol Dospak) 4 MG tablets Indications: Pruritus of in second trimester ([facility]) Day 1: 6 tablets Day 2: 5 [...] meal containing fat, [facility] 1986, 160, cm, 07/24/21 17:02:00 EDT, Height/Length [...] Take 1 each by mouth Daily Active olraonve02-edse-qtd ic-omega3 29-1-400 mg combo pack,tablet and cap,DR (14 sources) qyuizoxp16-abgr- f olic-omega3 29-1-400 mg combo pack,tablet and [...] Daily, # 90 tab(s), Refills(s) 3, Pharmacy: [facility]/pharmacy #[id number], 162, cm, 10/02/23 11:23:00 EDT, Height/Length Dosing, 76.7, kg, 10/02/23 11:23:00 EDT, Weight Dosing Start Date: 10/02/23 Status: Ordered Start: 08-27-2023 take 2 tablets by mo ut once daily Topamax 25 mg Tab 50 mg = 2 tab(s), Oral, Daily, # 180 tab(s), Refills(s) 0, Pharmacy: [facility]/pharmacy #[id number], 162, cm, 08/27/23 17:49:00 [...] 4-7, # 90 tab(s), Refills(s) 1, Pharmacy: [facility]/pharmacy #[id number], 162, cm, 02/19/23 7:51:00 [...] UA Negative Negative - 4(70) +++ mg/dL [facility] Blood, UA Negative Negative - 50 Jose/mcL [facility] Clarity, UA Clear [facility] Color, UA Yellow [facility] Glucose, UA Negative Negative - 1999(110) ++++ mg/dL [facility] Interpretation and review of laboratory results Abnormal [facility] Ketones, UA Negative Negative - 160(16) ++++ mg/dL [facility] Leukocytes, UA Positive Negative - 500+++ Onel/mcL [facility] Comment on above: 2+ Nitrite, UA Negative Negative - Positive [facility] pH, UA 6.0 5 - 9 [facility] Protein, UA Negative Negative - 2000(20) ++++ mg/dL [facility] Spec Grav, UA 1.015 1 - 1.03 [facility] Urobilinogen, UA 0.2 0.2 - 12 mg/dL [facility] US OB BPP W NON-STRESS on 02-07-2025 [place] [address] Ultrasound Report Signed Patient: SYDNEY ROMERO MR#: [id number] : 1995 Acct:[id number] Age/Sex: 29 / F ADM Date: 02/07/25 Loc: [facility] 254-[address]: Layo Courtney D.O. Ordering Physician: Layo Courtney D.O. Date of Service: 02/07/25 Procedure(s): US OB BPP w non-stress Accession Number(s): [id number] cc: Layo Courtney D.O.; Physician,Non-Staff M.DBetito The [address] [address] Patient Name: SYDNEY ROMERO MRN: [facility]:[id number] date: 1995 Sex: F Assigned Patient Location: [facility] Current Patient Location: [facility] Accession/Order Number: [id number] Exam Date: 02/07/2025 14:45 Report Date: 02/07/2025 16:05 At the request of: LAYO COURTNEY DO Procedure: US OB BPP w non-stress Ultrasound biophysical profile INDICATION: IVF FINDINGS: The breeding technician reports a BPP of 8 out of 8 LONNY is normal at 10.6 cm. heart rate 147. Heterogeneous appearance of the placenta hypoechoic focus measuring 2.4 x 1.9 x 1.6 cm in size. US/US OB BPP w non-stress IMPRESSION: BPP 8 out of 8. Impression dictated by: Bernabe Romero M.D. 02/07/2025 4:05 PM Dictation Location: [place] [address] Electronically authenticated by: [id number] Y Date: 02/07/2025 16:05 Dictated By: Bernabe Romero M.D. Signed By: 02/07/251606 DD/ 04 TD/TT: Route Driver [employer]: [facility] Radiology, Radiologist, MD - 02/07/2025 [place] [address] Ultrasound Report Signed Patient: SYDNEY ROMERO MR#: [id number] : 1995 Acct:[id number] Age/Sex: 29 / F ADM Date: 02/07/25 Loc: [facility] 254-[address]: Layo Courtney D.O. Ordering Physician: Layo Courtney D.O. Date of Service: 02/07/25 Procedure(s): US OB BPP w non-stress Accession Number(s): [id number] cc: Layo Courtney D.O.; Physician,Non-Staff Steven The [place] [id number] Patient Name: SYDNEY ROMERO MRN: [facility]:[id number] date: 1995 Sex: F Assigned Patient Location: [facility] Current Patient Location: [facility] Accession/Order Number: [id number] Exam Date: 02/07/2025 14:45 Report Date: 02/07/2025 16:05 At the request of: LAYO COURTNEY DO Procedure: US OB BPP w non-stress Ultrasound biophysical profile INDICATION: IVF FINDINGS: The breeding technician reports a BPP of 8 out of 8 LONNY is normal at 10.6 cm. heart rate 147. Heterogeneous appearance of the placenta hypoechoic focus measuring 2.4 x 1.9 x 1.6 cm in size. US/US OB BPP w non-stress IMPRESSION: BPP 8 out of 8. Impression dictated by: Bernabe Romero M.D. 02/07/2025 4:05 PM Dictation Location: [place] [address] Electronically authenticated by: [id number] Y Date: 02/07/2025 16:05 Dictated By: Bernabe Romero M.D. Signed By: 02/07/251606 DD/ 04 TD/TT: Route Driver [employer]: [facility] Radiology Study observation (narrative) [facility] US OB BPP W NON-STRESS Ordered By: Radiologist Radiology on 02-07-2025 [facility] Work Phone: Urinalysis macro (dipstick) panel (U)on 02-07-2025 Bilirubin, UA Negative Negative - 4(70) +++ mg/dL [facility] Blood, UA Negative Negative - 50 Jose/mcL [facility] Clarity, UA Clear [facility] Color, UA Yellow [facility] Glucose, UA Negative Negative - 1999(110) ++++ mg/dL [facility] Interpretation and review of laboratory results Abnormal [facility] Ketones, UA Negative Negative - 160(16) ++++ mg/dL [facility] Leukocytes, UA 3+ Negative - 500+++ Onel/mcL [facility] Nitrite, UA Negative Negative - Positive [facility] pH, UA 6.5 5 - 9 [facility] Protein, UA Trace Negative - 2000(20) ++++ mg/dL [facility] Spec Grav, UA 1.015 1 - 1.03 [facility] Urobilinogen, UA 2.0 0.2 - 12 mg/dL Critical [facility] hospital No Panel InformationOrdered By: Radiologist Radiology on 02-01-2025 [facility] Work Phone: No Panel Informationon 02-01 Radiology Study observation (narrative) [facility] US OB BPP W NON-STRESS on 02-01-2025 [place] [address] Ultrasound Report Signed Patient: SYDNEY ROMERO MR#: [id number] : 1995 Acct:[id number] Age/Sex: 29 / F ADM Date: 01/31/25 Loc: US Attending Dr: Layo Courtney D.O. Ordering Physician: Layo Courtney D.O. Date of Service: 01/31/25 Procedure(s): US OB BPP w non-stress Accession Number(s): [id number] cc: Layo Courtney D.O.; Physician,Non-Staff M.DBetito The [place] [address] Patient Name: SYDNEY ROMERO MRN: [facility]:[id number] date: 1995 Sex: F Assigned Patient Location: Current Patient Location: LAB Accession/Order Number: [id number] Exam Date: 01/31/2025 15:22 Report Date: 02/01/2025 [...] [place] M.D. 02/01/2025 9:21 AM Dictation Location: [place] [address] Electronically authenticated by: [id number] Y Date: 02/01/2025 09:21 Dictated By: Mariela [place]edo M.D. Signed By: 02/01/25923 DD/ 0 TD/TT: Route Driver [employer]: [facility] Radiology, Radiologist, - 02/01/2025 [place] [address] Ultrasound Report Signed Patient: SYDNEY ROMERO MR#: [id number] : 1995 Acct:[id number] Age/Sex: 29 / F ADM Date: 01/31/25 Loc: US Attending Dr: Layo Courtney D.O. Ordering Physician: Layo Courtney D.O. Date of Service: 01/31/25 Procedure(s): US OB BPP w non-stress Accession Number(s): [id number] cc: Layo Courtney D.O.; Physician,Non-Staff Steven The [place] [id number] Patient Name: SYDNEY ROMERO MRN: [facility]:[id number] date: 1995 Sex: F Assigned Patient Location: US Current Patient Location: LAB Accession/Order Number: [id number] Exam Date: 01/31/2025 15:22 Report Date: 02/01/2025 [...] [place] M.D. 02/01/2025 9:21 AM Dictation Location: [place] [address] Electronically authenticated by: [id number] Y Date: 02/01/2025 09:21 Dictated By: Mariela [place] M.D. Signed By: 02/01/25923 DD/ 0 TD/TT: Route Driver [employer]: [facility] OB GROWTHon 02-01-2025 [place] [address] Ultrasound Report Signed Patient: SYDNEY ROMERO MR#: [id number] : 1995 Acct:[id number] Age/Sex: 29 / F ADM Date: 01/31/25 Loc: US Attending Dr: Layo Courtney D.O. Ordering Physician: Layo Courtney D.O. Date of Service: 01/31/25 Procedure(s): US OB growth Accession Number(s): [id number] cc: Layo Courtney D.O.; Physician,Non-Staff Steven [place] [address] Patient Name: SYDNEY ROMERO MRN: [facility]:[id number] date: 1995 Sex: F Assigned Patient Location: [facility] Current Patient Location: LAB Accession/Order Number: [id number] Exam Date: 01/31/2025 15:22 Report Date: 02/01/2025 [...] [place] M.D. 02/01/2025 9:21 AM Dictation Location: [place] [address] Electronically authenticated by: [id number] Y Date: 02/01/2025 09:21 Dictated By: Mariela [place] M.D. Signed By: 02/01/25923 DD/ 0 TD/TT: Route Driver [employer]: [facility] Radiology, Radiologist, MD - 02/01/2025 [place] [address] Ultrasound Report Signed Patient: SYDNEY ROMERO MR#: [id number] : 1995 Acct:[id number] Age/Sex: 29 / F ADM Date: 01/31/25 Loc: US Attending Dr: Layo Courtney D.O. Ordering Physician: Layo Courtney D.O. Date of Service: 01/31/25 Procedure(s): US OB growth Accession Number(s): [id number] cc: Layo Courtney D.O.; Physician,Non-Staff Steven [facility] [place] [id number] Patient Name: SYDNEY ROMERO MRN: [facility]:[id number] date: 1995 Sex: F Assigned Patient Location: [facility] Current Patient Location: LAB Accession/Order Number: [id number] Exam Date: 01/31/2025 15:22 Report Date: 02/01/2025 [...] [place] M.D. 02/01/2025 9:21 AM Dictation Location: [place] [address] Electronically authenticated by: [id number] Y Date: 02/01/2025 09:21 Dictated By: Mariela [place] M.D. Signed By: 02/01/25923 DD/ 0 TD/TT: Route Driver [employer]: [facility] Urinalysis macro (dipstick) panel (U)on 01-31-2025 Bilirubin, UA Negative Negative - 4(70) +++ mg/dL [facility] Blood, UA Negative Negative - 50 Jose/mcL [facility] Clarity, UA Clear [facility] Color, UA Yellow [facility] Glucose, UA Negative Negative - 2000(110) ++++ mg/dL [facility] Interpretation and review of laboratory results Abnormal [facility] Ketones, UA Negative Negative - 160(16) ++++ mg/dL [facility] Leukocytes, UA 3+ Negative - 500+++ Onel/mcL [facility] Nitrite, UA Negative Negative - Positive [facility] pH, UA 7 5 - 9 [facility] Protein, UA Negative Negative - 1999(20) ++++ mg/dL [facility] Spec Grav, UA 1.01 1 - 1.03 [facility] Urobilinogen, UA 2.0 0.2 - 12 mg/dL [facility] US OB BPP W NON-STRESS on 01-25-2025 [place] [address] Ultrasound Report Signed Patient: SYDNEY ROMERO MR#: [id number] : 1995 Acct:[id number] Age/Sex: 29 / F ADM Date: 01/25/25 Loc: US Attending Dr: Layo Courtney D.O. Ordering Physician: Layo Courtney D.O. Date of Service: 01/25/25 Procedure(s): US OB BPP w non-stress Accession Number(s): [id number] cc: Layo Courtney D.O.; Physician,Non-Staff M.Nadir The [place] [id number] Patient Name: SYDNEY ROMERO MRN: [facility]:[id number] date: 1995 Sex: F Assigned Patient Location: [facility] Current Patient Location: US Accession/Order Number: [id number] Exam Date: 01/25/2025 16:50 Report Date: 01/25/2025 18:24 At the request of: LAYO COURTNEY DO Procedure: US OB BPP w non-stress Ultrasound biophysical profile INDICATION: Abnormal biophysical profile 01/24/2025 FINDINGS: The breeding technician reports a BPP of 8 out of 8 LONNY is normal at 10.9 cm. heart rate 134. Heterogeneous appearance of the placenta hypoechoic focus measuring 1.3 x 2.8 x 2.0 cm in size. US/US OB BPP w non-stress IMPRESSION: BPP 8 out of 8. Impression dictated by: Bernabe Romero M.D. 01/25/2025 6:24 PM Dictation Location: [place] [address] Electronically authenticated by: [id number] Y Date: 01/25/2025 18:24 Dictated By: Bernabe Romero M.D. Signed By: 01/25/251826 DD/ 23 TD/TT: Route Driver [employer]: [facility] Radiology, Radiologist, MD - 01/25/2025 [place] [address] Ultrasound Report Signed Patient: SYDNEY ROMERO MR#: [id number] : 1995 Acct:[id number] Age/Sex: 29 / F ADM Date: 01/25/25 Loc: US Attending Dr: Layo Courtney D.O. Ordering Physician: Layo Courtney D.O. Date of Service: 01/25/25 Procedure(s): US OB BPP w non-stress Accession Number(s): [id number] cc: Layo Courtney D.O.; Physician,Non-Staff Steven [facility] [place] [id number] Patient Name: SYDNEY ROMERO MRN: [facility]:[id number] date: 1995 Sex: F Assigned Patient Location: [facility] Current Patient Location: US Accession/Order Number: [id number] Exam Date: 01/25/2025 16:50 Report Date: 01/25/2025 18:24 At the request of: LAYO COURTNEY DO Procedure: US OB BPP w non-stress Ultrasound biophysical profile INDICATION: Abnormal biophysical profile 01/24/2025 FINDINGS: The breeding technician reports a BPP of 8 out of 8 LONNY is normal at 10.9 cm. heart rate 134. Heterogeneous appearance of the placenta hypoechoic focus measuring 1.3 x 2.8 x 2.0 cm in size. US/US OB BPP w non-stress IMPRESSION: BPP 8 out of 8. Impression dictated by: Bernabe Romero M.D. 01/25/2025 6:24 PM Dictation Location: [place] [address] Electronically authenticated by: [id number] Y Date: 01/25/2025 18:24 Dictated By: Bernabe Romero M.D. Signed By: 01/25/251826 DD/ 23 TD/TT: Route Driver [employer]: [facility] Radiology Study observation (narrative) [facility] US OB BPP W NON-STRESS Ordered By: Radiologist Radiology on 01-25-2025 [facility] [employer] Work Phone: US OB BPP W NON-STRESS on 01-24-2025 [place] [address] Ultrasound Report Signed Patient: SYDNEY ROMERO MR#: [id number] : 1995 Acct:[id number] Age/Sex: 29 / F ADM Date: 01/24/25 Loc: US Attending Dr: Layo Courtney D.O. Ordering Physician: Layo Courtney D.O. Date of Service: 01/24/25 Procedure(s): US OB BPP w non-stress Accession Number(s): [id number] cc: Layo Courtney D.O.; Physician,Non-Staff M.Nadir [place] [address] Patient Name: SYDNEY ROMERO MRN: [facility]:[id number] date: 1995 Sex: F Assigned Patient Location: [facility] Current Patient Location: Accession/Order Number: [id number] Exam Date: 01/24/2025 16:10 Report Date: 01/24/2025 19:55 At the request of: LAYO COURTNEY DO Procedure: US OB BPP w non-stress Biophysical profile. Reason for exam: resulting in vitro fertilization COMPARISON: 01/17/2025 TECHNIQUE: Transabdominal imaging of the gravid uterus was obtained. FINDINGS: The breeding technician reports a BPP of 6 out of 8 with 0/2 for gross body movements.. LONNY is normal at 11.9 cm. heart rate 148 bpm. US/US OB BPP w non-stress IMPRESSION: BPP 6out of 8. Correlation with NST is suggested. Impression dictated by: Juan Salinas Jr., D.O. 01/24/2025 7:55 PM Dictation Location: [place] [address] Electronically authenticated by: [id number] Y Date: 01/24/2025 19:55 Dictated By: Juan Salinas M.D. Signed By: 01/24/251957 DD/ 54 TD/TT: Route Driver [employer]: [facility] Radiology, Radiologist, MD - 01/24/2025 [place] [address] Ultrasound Report Signed Patient: SYDNEY ROMERO MR#: [id number] : 1995 Acct:[id number] Age/Sex: 29 / F ADM Date: 01/24/25 Loc: US Attending Dr: Layo Courtney D.O. Ordering Physician: Layo Courtney D.O. Date of Service: 01/24/25 Procedure(s): US OB BPP w non-stress Accession Number(s): [id number] cc: Layo Courtney D.O.; Physician,Non-Staff Steven The [address] [address] Patient Name: SYDNEY ROMERO MRN: [facility]:[id number] date: 1995 Sex: F Assigned Patient Location: [facility] Current Patient Location: Accession/Order Number: [id number] Exam Date: 01/24/2025 16:10 Report Date: 01/24/2025 19:55 At the request of: LAYO COURTNEY DO Procedure: US OB BPP w non-stress Biophysical profile. Reason for exam: resulting in vitro fertilization COMPARISON: 01/17/2025 TECHNIQUE: Transabdominal imaging of the gravid uterus was obtained. FINDINGS: The breeding technician reports a BPP of 6 out of 8 with 0/2 for gross body movements.. LONNY is normal at 11.9 cm. heart rate 148 bpm. US/US OB BPP w non-stress IMPRESSION: BPP 6out of 8. Correlation with NST is suggested. Impression dictated by: Juan Salinas Jr., D.O. 01/24/2025 7:55 PM Dictation Location: [place] [address] Electronically authenticated by: [id number] Y Date: 01/24/2025 19:55 Dictated By: Juan Salinas M.D. Signed By: 01/24/251957 DD/ 54 TD/TT: Route Driver [employer]: [facility] Radiology Study observation (narrative) [facility] US OB BPP W NON-STRESS Ordered By: Radiologist Radiology on 01-24-2025 [facility] Work Phone: US OB BPP W NON-STRESS on 01-18-2025 [place] [address] Ultrasound Report Signed Patient: SYDNEY ROMERO MR#: [id number] : 1995 Acct:[id number] Age/Sex: 29 / F ADM Date: 01/17/25 Loc: US Attending Dr: Layo Courtney D.O. Ordering Physician: Layo Courtney D.O. Date of Service: 01/17/25 Procedure(s): US OB BPP w non-stress Accession Number(s): [id number] cc: Layo Courtney D.O.; Physician,Non-Staff Steven [address] [address] Patient Name: SYDNEY ROMERO MRN: [facility]:[id number] date: 1995 Sex: F Assigned Patient Location: [facility] Current Patient Location: Accession/Order Number: [id number] Exam Date: 01/17/2025 16:08 Report Date: 01/18/2025 [...] [place] M.D. 01/18/2025 9:02 AM Dictation Location: [place] [address] Electronically authenticated by: [id number] Y Date: 01/18/2025 09:02 Dictated By: Marilea [place] M.D. Signed By: 01/18/25904 DD/ 1 TD/TT: Route Driver [employer]: [facility] Radiology, Radiologist, MD - 01/18/2025 [place] [address] Ultrasound Report Signed Patient: SYDNEY ROMERO MR#: [id number] : 1995 Acct:[id number] Age/Sex: 29 / F ADM Date: 01/17/25 Loc: US Attending Dr: Layo Courtney D.O. Ordering Physician: Layo Courtney D.O. Date of Service: 01/17/25 Procedure(s): US OB BPP w non-stress Accession Number(s): [id number] cc: Layo Courtney D.O.; Physician,Non-Staff Steven [place] [address] Patient Name: SYDNEY ROMERO MRN: [facility]:[id number] date: 1995 Sex: F Assigned Patient Location: [facility] Current Patient Location: Accession/Order Number: [id number] Exam Date: 01/17/2025 16:08 Report Date: 01/18/2025 [...] [place] M.D. 01/18/2025 9:02 AM Dictation Location: [place] [address] Electronically authenticated by: [id number] Y Date: 01/18/2025 09:02 Dictated By: Mariela [place] M.D. Signed By: 01/18/25904 DD/ 1 TD/TT: Route Driver [employer]: [facility] Radiology Study observation (narrative) [facility] US OB BPP W NON-STRESS Ordered By: Radiologist Radiology on 01-18-2025 [facility] Work Phone: Urinalysis macro (dipstick) panel (U)on 01-16-2025 Bilirubin, UA Negative Negative - 4(70) +++ mg/dL [facility] Blood, UA Negative Negative - 50 Jose/mcL [facility] Clarity, UA Clear [facility] Color, UA Yellow [facility] Glucose, UA Negative Negative - 2000(110) ++++ mg/dL [facility] Interpretation and review of laboratory results Abnormal [facility] Ketones, UA Negative Negative - 160(16) ++++ mg/dL [facility] Leukocytes, UA Positive Negative - 500+++ Onel/mcL [facility] Nitrite, UA Negative Negative - Positive [facility] pH, UA 6 5 - 9 [facility] Protein, UA Positive Negative - 1999(20) ++++ mg/dL [facility] Spec Grav, UA 1.03 1 - 1.03 [facility] Urobilinogen, UA 1.0 0.2 - 12 mg/dL [facility] US OB BPP W NON-STRESS on 01-10-2025 [place] [address] Ultrasound Report Signed Patient: SYDNEY ROMERO MR#: [id number] : 1995 Acct:[id number] Age/Sex: 29 / F ADM Date: 01/10/25 Loc: US Attending Dr: Layo Courtney D.O. Ordering Physician: Layo Courtney D.O. Date of Service: 01/10/25 Procedure(s): US OB BPP w non-stress Accession Number(s): [id number] cc: Layo Courtney D.O.; Physician,Non-Staff M.DBetito [address] [address] Patient Name: SYDNEY ROMERO MRN: [facility]:[id number] date: 1995 Sex: F Assigned Patient Location: US Current Patient Location: Accession/Order Number: [id number] Exam Date: 01/10/2025 16:03 Report Date: 01/10/2025 [...] the placenta. Recommend follow-up. Impression dictated by: Benrabe Romero M.D. 01/10/2025 9:07 PM Dictation Location: [place] [address] Electronically authenticated by: [id number] Y Date: 01/10/2025 21:07 Dictated By: Bernabe Romero M.D. Signed By: 01/10/252109 DD/ 06 TD/TT: Route Driver [employer]: [facility] Radiology, Radiologist, MD - 01/10/2025 [place] [address] Ultrasound Report Signed Patient: SYDNEY ROMERO MR#: [id number] : 1995 Acct:[id number] Age/Sex: 29 / F ADM Date: 01/10/25 Loc: US Attending Dr: Layo Courtney D.O. Ordering Physician: Layo Courtney D.O. Date of Service: 01/10/25 Procedure(s): US OB BPP w non-stress Accession Number(s): [id number] cc: Layo Courtney D.O.; Physician,Non-Staff Steven The [place] [id number] Patient Name: SYDNEY ROMERO MRN: [facility]:[id number] date: 1995 Sex: F Assigned Patient Location: US Current Patient Location: Accession/Order Number: [id number] Exam Date: 01/10/2025 16:03 Report Date: 01/10/2025 [...] Romero M.D. 01/10/2025 9:07 PM Dictation Location[facility] Electronically authenticated by: [id number] Y Date: 01/10/2025 21:07 Dictated By: Bernabe Romero M.D. Signed By: 01/10/252109 DD/ 06 TD/TT: Route [employer]: [facility] Radiology Study observation (narrative) [facility] US OB BPP W NON-STRESS Ordered By: Radiologist Radiology on 01-10-2025 [facility] Work Phone: Urinalysis macro (dipstick) panel (U)on 01-03-2025 Bilirubin, UA Negative Negative - 4(70) +++ mg/dL [facility] Blood, UA Negative Negative - 50 Jose/mcL [facility] Clarity, UA Clear [facility] Color, UA Yellow [facility] Glucose, UA Trace Negative - 1999(110) ++++ mg/dL [facility] Interpretation and review of laboratory results Abnormal [facility] Ketones, UA Negative Negative - 160(16) ++++ mg/dL [facility] Leukocytes, UA Positive Negative - 500+++ Onel/mcL [facility] Nitrite, UA Negative Negative - Positive [facility] pH, UA 8 5 - 9 [facility] Protein, UA Negative Negative - 1999(20) ++++ mg/dL [facility] Spec Grav, UA 1.015 1 - 1.03 [facility] Urobilinogen, UA 1.0 0.2 [...] II, MD, PHD at 22-Dec-2024 08:03:51 AM [facility] Normal Not Available Comment on above: Order Comment: US OB SCAN FOR GROWTH Estimated Date of Delivery: 03/01/25 Gestational Age as of 12/06/2024: 27w6d Urinalysis macro (dipstick) panel (U)on 12-19-2024 Bilirubin, UA Negative Negative - 4(70) +++ mg/dL [facility] Blood, UA Positive Negative - 50 Jose/mcL [facility] Clarity, UA Clear [facility] Color, UA Yellow [facility] Glucose, UA Negative Negative - 2000(110) ++++ mg/dL [facility] Interpretation and review of laboratory results Abnormal [facility] Ketones, UA Negative Negative - 160(16) ++++ mg/dL [facility] Leukocytes, UA Positive Negative - 500+++ Onel/mcL [facility] Comment on above: 3+ Nitrite, UA Negative Negative - Positive [facility] pH, UA 6 5 - 9 [facility] Protein, UA Positive Negative - 1999(20) ++++ mg/dL [facility] Spec Grav, UA 1.03 1 - 1.03 [facility] Urobilinogen, UA 1.0 0.2 - 12 mg/dL [facility] GLUCOSE TOLERANCE 3 HOURon 0 12-06-2024 GLUCOSE TOLERANCE 3 HOUR mg/dL [facility] Comment on above: GLU FAST 90 (<95) Co l: 12/06/24 1126 GLU 1HR 143 (<180) Col: 12/06/24 1235 GLU 2HR 132 (<155) Col: 12/06/24 1327 GLU 3HR 81 (<140) Col: 12/06/24 1432 [facility] Urinalysis macro (dipstick) panel (U)on 12-06-2024 Bilirubin, UA Negative Negative - 4(70) +++ mg/dL [facility] Blood, UA Negative Negative - 50 Jose/mcL [facility] Clarity, UA Clear [facility] Color, UA Yellow [facility] Glucose, UA Negative Negative - 1999(110) ++++ mg/dL [facility] Interpretation and review of laboratory results Abnormal [facility] Ketones, UA Negative Negative - 160(16) ++++ mg/dL [facility] Leukocytes, UA 3+ Negative - 500+++ Onel/mcL [facility] Nitrite, UA Negative Negative - Positive [facility] pH, UA 8 5 - 9 [facility] Protein, UA Negative Negative - 1999(20) ++++ mg/dL [facility] Spec Grav, UA 1.015 1 - 1.03 [facility] Urobilinogen, UA 1.0 0.2 - 12 mg/dL [facility] ALL CBC WITH AUTO DIFFon BASOPHILS ABSOLUTE AUTO 0 N [facility] Basophils/100 WBC (Bld) 0.3 % 0.2 - 2.0 % [facility] Eosinophils/100 WBC (Bld) 1.1 % 0.9 - 7.0 % [facility] Erythrocyte distribution width (RBC) [Ratio] 12.4 % 11.0 - 15.0 % [facility] Hematocrit (Bld) [Volume fraction] 38.9 % 36.0 - 48.0 % [facility] Hemoglobin (Bld) [Mass/Vol] 13.6 g/dL 12.0 - 16.0 g/dL [facility] IMMATURE GRANULOCYTES ABS AUTO 0.13 High [facility] Immature granulocytes/100 WBC (Bld) 1.4 % High 0.0 - 0.5 % [facility] Interpretation and review of laboratory results Abnormal [facility] LYMPHOCYTES ABSOLUTE AUTO 1.7 [facility] Lymphocytes/100 WBC (Bld) 18.9 % Low 20.5 - 60. 0 % [facility] MCH (RBC) [Entitic mass] 31.5 pg 26. 7 - 34.0 pg [facility] MCHC (RBC) [Mass/Vol] 35 g/dL 29.9 - 35.2 g/dL [facility] MCV (RBC) [Entitic vol] 90 fL 81.0 - 99.0 fL [facility] MONOCYTES ABSOLUTE AUTO 0.4 N [facility] Monocytes/100 WBC (Bld) 4.6 % 1.7 - 12.0 % [facility] NEUTROPHILS ABSOLUTE AUTO 6.8 High [facility] Neutrophils/100 WBC (Bld) 73.7 % 43.0 - 75. 0 % [facility] Platelet mean volume (Bld) [Entitic vol] 11.3 fL 9.5 - 13.[address] [facility] EO # 0.1 [facility] PLT [address] [facility] RBC 4.32 [facility] WBC 9.2 [facility] Urinalysis macro (dipstick) panel (U)on 11-09-2024 Bilirubin, UA Negative Negative - 4(70) +++ mg/dL [facility] Blood, UA Negative Negative - 50 Jose/mcL [facility] Clarity, UA Clear [facility] Color, UA Yellow [facility] Glucose, UA Negative Negative - 2000(110) ++++ mg/dL [facility] Interpretation and review of laboratory results Normal [facility] Ketones, UA Negative Negative - 160(16) ++++ mg/dL [facility] Leukocytes, UA Negative Negative - 500+++ Onel/mcL [facility] Nitrite, UA Negative Negative - Positive [facility] pH, UA 5.5 5 - 9 [facility] Protein, UA Negative Negative - 1999(20) ++++ mg/dL [facility] Spec Grav, UA 1.025 1 - 1.03 [facility] Urobilinogen, UA 1.0 0.2 - 12 mg/dL [facility] Urinalysis macro (dipstick) panel (U)on 10-17-2024 Bilirubin, UA Negative Negative - 4(70) +++ mg/dL [facility] Blood, UA Negative Negative - 50 Jose/mcL [facility] Clarity, UA Clear [facility] Color, UA Yellow [facility] Glucose, UA Negative Negative - 1999(110) ++++ mg/dL [facility] Interpretation and review of laboratory results Abnormal [facility] Ketones, UA Negative Negative - 160(16) ++++ mg/dL [facility] Leukocytes, UA Positive Negative - 500+++ Onel/mcL [facility] Comment on above: small Nitrite, UA Negative Negative - Positive [facility] pH, UA 7 5 - 9 [facility] Protein, UA Negative Negative - 1999(20) ++++ mg/dL [facility] Spec Grav, UA 1.015 1 - 1.03 [facility] Urobilinogen, UA 0.2 0.2 - 12 mg/dL [facility] ALL CBC WITH AUTO DIFFon BASOPHILS ABSOLUTE AUTO 0 N [facility] Basophils/100 WBC (Bld) 0.2 % 0.2 - 2.0 % [facility] Eosinophils/100 WBC (Bld) 3.2 % 0.9 - 7.0 % [facility] Erythrocyte distribution width (RBC) [Ratio] 12.5 % 11.0 - 15.0 % [facility] Hematocrit (Bld) [Volume fraction] 37.9 % 36.0 - 48.0 % [facility] Hemoglobin (Bld) [Mass/Vol] 13.2 g/dL 12.0 - 16.0 g/dL [facility] IMMATURE GRANULOCYTES ABS AUTO 0.14 High [facility] Immature granulocytes/100 WBC (Bld) 1.5 % High 0.0 - 0.5 % [facility] Interpretation and review of laboratory results Abnormal [facility] LYMPHOCYTES ABSOLUTE AUTO 2 [facility] Lymphocytes/100 WBC (Bld) 20.8 % 20.5 - 60. 0 % [facility] MCH (RBC) [Entitic mass] 30.9 pg 26. 7 - 34.0 pg [facility] MCHC (RBC) [Mass/Vol] 34.8 g/dL 29.9 - 35.2 g/dL [facility] MCV (RBC) [Entitic vol] 88.8 fL 81.0 - 99.0 fL [facility] MONOCYTES ABSOLUTE AUTO 0.7 N [facility] Monocytes/100 WBC (Bld) 7.2 % 1.7 - 12.0 % [facility] NEUTROPHILS ABSOLUTE AUTO 6.3 [facility] Neutrophils/100 WBC (Bld) 67.1 % 43.0 - 75. 0 % [facility] Platelet mean volume (Bld) [Entitic vol] 11.1 fL 9.5 - 13.5 fL [facility] TBH EO # 0.3 [facility] TB PLT 153 [facility] RBC 4.27 [facility] WBC 9.4 [facility] US OB DETAIL ANATOMYon 10-07-2024 [...] EFW (oz) 12 oz EFW by: Hadlock (ARM-HI-LY-FL) Extended Hogshead Stock Clerk 6.0 mm CM 4.4 mm 36% Nicolaides [...] Normal LVOT view: Normal 3-vessel view: Normal 0-ogzlno-fiawjhm view: Normal Heart / Thorax Situs: situs [...] Normal L (more content not included)... Normal [facility] US for pregnancyon 5 Interpreted by: [...] EFW (oz) 12 oz EFW by: Hadlock (CQL-EI-VY-FL) Extended Hogshead Stock Clerk 6.0 mm CM 4.4 mm 36% Nicolaides [...] Normal LVOT view: Normal 3-vessel view: Normal 4-hhxznp-cfprsrn view: Normal Heart / Thorax Situs: situs [...] [employer] History ====== General History Damfom099 cm Height (ft)5 ft Height (in)3 in Previous Outcomes Gravida1 Para0 Maternal Assessment Yihbbu771 cm Height (ft)5 ft Height (in)3 in Kdzlun00 kg Weight (lb)165 lb Weight gain0 kg [...] 87% Hadlock Femur32.4 mm20w 1d 73% Hadlock Ymapzpy98.4 mm 45% Chitty HC / AC1.05 2% Hadlock LCN181 g20w 1d 91% Hadlock EFW (lb)0 lb EFW (oz)12 oz EFW by:Hadlock (VIV-AP-AJ-FL) Extended Vp6.0 mm CM4.4 mm 36% Nicolaides Nasal bone4.7 mm Head / Face / Neck Cephalic index0.74 10% Nicolaides Nasal bone:present Extremities / Bony Struc FL / BPD0.74 92% Hadlock FL / HC0.20 96% Hadlock FL / AC0.21 35% Hadlock Other Structures DXG159 bpm Anatomy Cranium:Normal Lateral ventricles:Normal Choroid plexus:Normal [...] view:Normal RVOT view:Normal LVOT view:Normal 3-vessel view:Normal 6-hldlsc-onhsfpd view:Normal Heart / Thorax Situs:situs solitus (normal) [...] Lt lower leg:Normal (more content not included)... [facility] Work Phone: Source Facility: [facility] Interpreted by: Ad Ovalle Indication ======== Screening [...] EFW (oz) 12 oz EFW by: Hadlock (HIK-YX-GJ-FL) Extended Hogshead Stock Clerk 6.0 mm CM 4.4 mm 36% Nicolaides [...] Normal LVOT view: Normal 3-vessel view: Normal 3-pjqnsd-hqqplnp view: Normal Heart / Thorax Situs: situs [...] included)... Radiology, Radiologist, - 10/07/2024 Source Facility: [facility] Interpreted by: Ad Ovalle Indication ======== Screening [...] EFW (oz) 12 oz EFW by: Hadlock (BTM-OC-ZQ-FL) Extended Hogshead Stock Clerk 6.0 mm CM 4.4 mm 36% Nicolaides [...] Normal LVOT view: Normal 3-vessel view: Normal 0-ghajav-oyrsxrl view: Normal Heart / Thorax Situs: situs [...] Normal Lt forear (more content not included)... [facility] Radiology Study observation (narrative) [facility] Work Phone: Radiology Study observation (narrative) [facility] US for pregnancyOrdered By: Ad Ovalle on 10-07-2024 [facility] Work Phone: US for pregnancyOrdered By: Radiologist Radiology on 10-07-2024 [facility] Work Phone: RECURRENT VAGINITIS (HTRX)on 09-07-2024 ATOPOBIUM VAGINAE 0 [facility] ATOPOBIUM VAGINAE Not detected [facility] BVAB 2,3 (BACTERIAL VAGINOSIS ASSOCIATED BACTERIA 2, 3); MOBILUNCUS SPP 0 [facility] BVAB 2,3 (BACTERIAL VAGINOSIS ASSOCIATED BACTERIA 2, 3); MOBILUNCUS SPP Not detected [facility] PRESTON ALBICANS, PARAPSILOSIS, TROPICALIS 0 [facility] PRESTON ALBICANS, PARAPSILOSIS, TROPICALIS Not detected [facility] PRESTON GLABRATA 0 [facility] PRESTON GLABRATA Not detected [facility] PRESTON KRUSEI 0 [facility] PRESTON KRUSEI Not detected [facility] CHLAMYDIA TRACHOMATIS 0 [facility] CHLAMYDIA TRACHOMATIS Not detected N [facility] GARDNERELLA VAGINALIS [address] [facility] GARDNERELLA VAGINALIS Not detected N [facility] MEGASPHAERA (TYPES 1, 2) 0 [facility] MEGASPHAERA (TYPES 1, 2) Not detected [facility] MYCOPLASMA GENITALIUM 0 [facility] MYCOPLASMA GENITALIUM Not detected N [facility] NEISSERIA GONORRHOEAE 0 [facility] NEISSERIA GONORRHOEAE Not detected N [facility] TRICHOMONAS VAGINALIS 0 [facility] TRICHOMONAS VAGINALIS Not detected N [facility] Urinalysis macro (dipstick) panel (U)on 09-06-2024 Bilirubin, UA Negative Negative - 4(70) +++ mg/dL [facility] Blood, UA Negative Negative - 50 Jose/mcL [facility] Clarity, UA Clear [facility] Color, UA Yellow [facility] Glucose, UA Negative Negative - 1999(110) ++++ mg/dL [facility] Interpretation and review of laboratory results Abnormal [facility] Ketones, UA Negative Negative - 160(16) ++++ mg/dL [facility] Leukocytes, UA Positive Negative - 500+++ Onel/mcL [facility] Comment on above: small Nitrite, UA Negative Negative - Positive [facility] pH, UA 6 5 - 9 [facility] Protein, UA Negative Negative - 1999(20) ++++ mg/dL [facility] Spec Grav, UA 1.03 1 - 1.03 [facility] Urobilinogen, UA 0.2 0.2 - 12 mg/dL [facility] ALL CBC WITH AUTO DIFFon BASOPHILS ABSOLUTE AUTO 0 N [facility] Basophils/100 WBC (Bld) 0.2 % 0.2 - 2.0 % [facility] Eosinophils/100 WBC (Bld) 2.9 % 0.9 - 7.0 % [facility] Erythrocyte distribution width (RBC) [Ratio] 12 % 11.0 - 15.0 % [facility] Hematocrit (Bld) [Volume fraction] 39.3 % 36.0 - 48.0 % [facility] Hemoglobin (Bld) [Mass/Vol] 13.6 g/dL 12.0 - 16.0 g/dL [facility] IMMATURE GRANULOCYTES ABS AUTO 0.06 High [facility] Immature granulocytes/100 WBC (Bld) 0.7 % High 0.0 - 0.5 % [facility] Interpretation and review of laboratory results Abnormal [facility] LYMPHOCYTES ABSOLUTE AUTO 2.1 [facility] Lymphocytes/100 WBC (Bld) 25.4 % 20.5 - 60. 0 % [facility] MCH (RBC) [Entitic mass] 30.2 pg 26. 7 - 34.0 pg [facility] MCHC (RBC) [Mass/Vol] 34.6 g/dL 29.9 - 35.2 g/dL [facility] MCV (RBC) [Entitic vol] 87.3 fL 81.0 - 99.0 fL [facility] MONOCYTES ABSOLUTE AUTO 0.5 N [facility] Monocytes/100 WBC (Bld) 5.8 % 1.7 - 12.0 % [facility] NEUTROPHILS ABSOLUTE AUTO 5.5 [facility] Neutrophils/100 WBC (Bld) 65 % 43.0 - 75. 0 % [facility] Platelet mean volume (Bld) [Entitic vol] 10.9 fL 9.5 - 13.5 fL [facility] TBH EO # 0.2 [facility]H PLT 151 [facility] RBC 4.5 [facility] WBC 8.4 [facility] Urinalysis macro (dipstick) panel (U)on 08-08-2024 Bilirubin, UA Negative Negative - 4(70) +++ mg/dL [facility] Blood, UA Negative Negative - 50 Jose/mcL [facility] Clarity, UA Clear [facility] Color, UA Yellow [facility] Glucose, UA Negative Negative - 1999(110) ++++ mg/dL [facility] Interpretation and review of laboratory results Abnormal [facility] Ketones, UA Negative Negative - 160(16) ++++ mg/dL [facility] Leukocytes, UA Positive Negative - 500+++ Onel/mcL [facility] Comment on above: small Nitrite, UA Negative Negative - Positive [facility] pH, UA 6 5 - 9 [facility] Protein, UA Negative Negative - 1999(20) ++++ mg/dL [facility] Spec Grav, UA 1.025 1 - 1.03 [facility] Urobilinogen, UA 0.2 0.2 - 12 mg/dL [facility] HCG ( test) Ql (U)o n 07-29-2024 Interpretation and review of laboratory results Abnormal [facility] Preg Test, Ur Positive Negative [facility] Urinalysis macro (dipstick) panel (U)on 07-29-2024 Bilirubin, UA Negative Negative - 4(70) +++ mg/dL [facility] Blood, UA Positive Negative - 50 Jose/mcL [facility] Comment on above: trace Clarity, UA Clear [facility] Color, UA Yellow [facility] Glucose, UA Negative Negative - 1999(110) ++++ mg/dL [facility] Interpretation and review of laboratory results Abnormal [facility] Ketones, UA Negative Negative - 160(16) ++++ mg/dL [facility] Leukocytes, UA Positive Negative - 500+++ Onel/mcL [facility] Comment on above: small Nitrite, UA Negative Negative - Positive [facility] pH, UA 5.5 5 - 9 [facility] Protein, UA Negative Negative - 1999(20) ++++ mg/dL [facility] Spec Grav, UA 1.03 1 - 1.03 [facility] Urobilinogen, UA 0.2 0.2 - 12 mg/dL [facility] PROGESTERONEon 07-12-2024 PROGESTERONE 53.5 ng/mL Normal [facility] Comment on above: Result Comment: Refe rence Ranges Female Follicular Phase < 1.0 Luteal Phase 2.6-21.5 Post menopausal < 0.5 1st Trimester 4.1-34.0 2nd Trimester 24.0-76.0 3rd Trimester 52.0-302.0 Performed By: #### 7 45 #### [facility] [address], [address] [place] [id number] Kettle Loader: Alexey Boogie MD US OB TRANSVAGINALon 025 [...] evaluation for early dating. View: Sufficient Normal [facility] Choriogonadotropin.beta subu niton 06-30-2024 HCG.beta subunit Qn 6575 m[IU]/mL High <5 Un [facility] Comment on above: Order Comment: Total HCG measurement is performed using the [employer] Access Immunoassay which detects intact HCG and free beta HCG subunit. This test is not indicated for use as a tumor marker. HCG testing is performed using a different test methodology at [facility] than other [facility]. Direct [...] By: #### 2 1198-7 #### JOSEPH ESQUIVEL ([id number]) [facility] ([facility]) [address] [place] [address] Choriogonadotropin.beta subu niton 06-23-2024 HCG.beta subunit Qn 330 m[IU]/mL High <5 [facility] Comment on above: Order Comment: Total HCG measurement is performed using the [employer] Access Immunoassay which detects intact HCG and free beta HCG subunit. This test is not indicated for use as a tumor marker. HCG testing is performed using a different test methodology at [facility] than other [facility]. Direct [...] By: #### 2 1198-7 #### JOSEPH ESQUIVEL ([id number]) [facility] ([facility]) [address] [place] [address] Estradiolon 06-23-2024 E2 [Mass/Vol] 378 pg/mL [facility] Comment on above: Order Comment: REF V ALUES FOLLICULAR PHASE 20-144 MID CYCLE 64-357 LUTEAL PHASE 56-214 POSTMENOPAUSE < 32 PREPUBERTY < 20 FEMALE 10-18Y 8-110 MALE 10-18Y < 20 ADULT MALE < 40 Estradiol measurement is performed using the [employer] Access Estradiol Immunoassay. Estradiol testing is performed using a different test methodology at [facility] than other [facility]. Direct result comparison should only be made within the same method. Performed By: #### 2 243-4 #### JOSEPH ESQUIVEL ([id number]) [facility] ([facility]) [address] [place] [address] Progesteroneon 06-23-2024 Progesterone [Mass/Vol] 42.6 ng/mL Normal U [facility] Comment on above: Order Comment: REF V ALUES Male <0.2-0.8 Follicular Phase <0.2-1.5 Luteal Phase 7.4-15.4 Post Menopausal <0.2-0.2 1ST Trimester 12.0-84.0 2ND Trimester 10.2-58.8 3RD Trimester 46.5-160 Progesterone is performed using the [employer] Access Immunoassay. Progesterone testing is performed using a different test methodology at [facility] than other [facility]. Direct result comparison should only be made within the same method. Performed By: #### 2 839-9 #### JOSEPH ESQUIVEL ([id number]) [facility] ([facility]) [address] [place] [address] No Panel Informationon 06-13 Juan Chavarria MD [...] Preop diagnosis: Infertility Post op diagnosis: Same Smoking Pipe Driller And Threader: none Depth: 7 cm Curve: anterior Distance [...] Progesteroneon 06-13-2024 Progesterone [Mass/Vol] 45.0 ng/mL Normal [facility] Comment on above: Order Comment: REF V ALUES Male <0.2-0.8 Follicular Phase <0.2-1.5 Luteal Phase 7.4-15.4 Post Menopausal <0.2-0.2 1ST Trimester 12.0-84.0 2ND Trimester 10.2-58.8 3RD Trimester 46.5-160 Progesterone is performed using the [employer] Access Immunoassay. Progesterone testing is performed using a different test methodology at [facility] than other [facility]. Direct result comparison should only be made within the same method. Performed By: #### 2 839-9 #### ORA MOHAN ([id number]) [facility] ([facility]) [address] [place] [address] Estradiolon 06-07-2024 E2 [Mass/Vol] 2870 pg/mL Normal [facility] Comment on above: Order Comment: REF V ALUES FOLLICULAR PHASE 20-144 MID CYCLE 64-357 LUTEAL PHASE 56-214 POSTMENOPAUSE < 32 PREPUBERTY < 20 FEMALE 10-18Y 8-110 MALE 10-18Y < 20 ADULT MALE < 40 Performed By: #### 2 243-4 #### JOSEPH ESQUIVEL ([id number]) [facility] ([facility]) [address] [place] [address] Progesteroneon 06-07-2024 Progesterone [Mass/Vol] 0.4 ng/mL Normal [facility] Comment on above: Order Comment: REF V ALUES Male <0.2-0.8 Follicular Phase <0.2-1.5 Luteal Phase 7.4-15.4 Post Menopausal <0.2-0.2 1ST Trimester 12.0-84.0 2ND Trimester 10.2-58.8 3RD Trimester 46.5-160 Progesterone is performed using the [employer] [place] Access Immunoassay. Progesterone testing is performed using a different test methodology at [facility] than other [facility]. Direct [...] results near 1.0 ng/mL. Contact laboratory at [phone] if alternative testing is needed. Performed By: #### 2 839-9 #### JOSEPH ESQUIVEL ([id number]) [facility] ([facility]) [address] [place] [address] KELSY US PELVIS LIMITED FOLLIC LES-FOLLICLE STUDIES PERFORMEDon 06-07-2024 KELSY US PELVIS LIMITED FOLLICLES-FOLLICLE STUDIES PERFORMED Follicle scan performed with follicle measurements in report. and Trilaminar appearance to the endometrium is noted. Normal [facility] Estradiolon 06-06-2024 E2 [Mass/Vol] 558 pg/mL Normal [facility] Comment on above: Order Comment: REF V ALUES FOLLICULAR PHASE 20-144 MID CYCLE 64-357 LUTEAL PHASE 56-214 POSTMENOPAUSE < 32 PREPUBERTY < 20 FEMALE 10-18Y 8-110 MALE 10-18Y < 20 ADULT MALE < 40 Performed By: #### 2 243-4 #### JOSEPH ESQUIVEL ([id number]) [facility] ([facility]) [address] [place] [address] Follicle Diameter USon 06-06 Trilaminar appearance to the endometrium is noted. RIS SECTRA ONLY [facility] Work Phone: Radiology Study observation (narrative) [facility] Work Phone: Progesteroneon 06-06-2024 Progesterone [Mass/Vol] 0.8 ng/mL Normal [facility] Comment on above: Order Comment: REF V ALUES Male <0.2-0.8 Follicular Phase <0.2-1.5 Luteal Phase 7.4-15.4 Post Menopausal <0.2-0.2 1ST Trimester 12.0-84.0 2ND Trimester 10.2-58.8 3RD Trimester 46.5-160 Progesterone is performed using the [employer] Access Immunoassay. Progesterone testing is performed using a different test methodology at [facility] than other [facility]. Direct [...] results near 1.0 ng/mL. Contact laboratory at [phone] if alternative testing is needed. Performed By: #### 2 839-9 #### JOSEPH ESQUIVEL ([id number]) [facility] ([facility]) [address] [place] [address] KELSY US ENDOMETRIAL LINING ECKon 06-06-2024 KELSY US ENDOMETRIAL LINING CHECK Trilaminar appearance to the endometrium is noted. [facility] No Panel Informationon 03-22 Juan Chavarria MD 03/22/2024 9:44 AM Egg Retrieval Date/Time: 03/22/2024 9:39 AM Performed by: Juan Chavarria MD Authorized by: Donya Abernathy APRN-MAINTENANCE ENGINEER Consent: Consent obtained: Verbal and written Consent [...] diagnosis: Female infertility Post op diagnosis: Same Smoking Pipe Driller And Threader: Dr. Warren IV Fluids: 600 cc EBL: 5 cc UOP: Not recorded Specimen: Oocytes Complications: None Number of Oocytes right ovary: 16 Ovarian access (right): Easy Number of Oocytes left ovary: 9 Ovarian access (left): Easy Endometrial thickness: n/a Needle type: Single Additional notes: KELSY LAB RIS [facility] Work Phone: Lutropinon 03-21-2024 Lutropin Qn 29.3 IU/L Normal [facility] Comment on above: Result Comment: LH R eference Values Follicular Phase 1.5-10.0 Mid-Cycle 13.0-72.0 Luteal Phase 0.5-13.0 Menopause 15.0-65.0 Pre-puberty 0- 3.0 Children 0- 6.0 Adult Male 1.0- 9.0 Luteinizing Hormone is performed using the [employer] Access Immunoassay. LH testing is performed using a different test methodology at [facility] than other [facility]. Direct result comparison should only be made within the same method. Performed By: #### 4 7236-5 #### SHAI Pickard ([id number]) [facility] ([facility]) [address] [place] [address] Progesteroneon 03-21-2024 Progesterone [Mass/Vol] 4.5 ng/mL Normal [facility] Comment on above: Order Comment: HIV A g/Ab screen is performed using the Siem[employer] HIV Ag/Ab Combo assay which detects the presence of HIV p24 antigen as well as antibodies to HIV-1 (Group M and O) and HIV-2. No laboratory evidence of HIV infection. If acute HIV infection is suspected, consider testing for HIV RNA by PCR (viral load). Performed By: #### 5 6888-1 #### SHAI Pickard ([id number]) [facility] ([facility]) [address] [place] [address] E2 [Mass/Vol]Ordered By: Shira Rich on 03-20-2024 REF VALUES FOLLICULAR PHASE 20-144 MID CYCLE 64-357 LUTEAL PHASE 56-214 POSTMENOPAUSE < 32 PREPUBERTY < 20 FEMALE 10-18Y 8-110 MALE 10-18Y < 20 ADULT MALE < 40 Estradiol measurement is performed using the [employer] Access Estradiol Immunoassay. Estradiol testing is performed using a different test methodology at [facility] than other [facility]. Direct result comparison should only be made within the same method. [facility] EstradiolOrdered By: Bela Rich on 03-20-2024 E2 [Mass/Vol] 4909 pg/mL [facility] Estradiolon 03-20-2024 E2 [Mass/Vol] 4909 pg/mL Normal [facility] Comment on above: Order Comment: HIV [...] By: #### 5 6888-1 #### SHAI Pickard ([id number]) [facility] ([facility]) [address] [place] [address] Follicle Diameter USon 03-20 Follicle scan performed with follicle measurements in report. RIS SECTRA ONLY [facility] Work Phone: Radiology Study observation (narrative) [facility] Work Phone: Progesteroneon 03-20-2024 Progesterone [Mass/Vol] 1.3 ng/mL U [facility] Progesterone [Mass/Vol] 1.3 ng/mL Normal [facility] Comment on above: Order Comment: HIV [...] By: #### 5 6888-1 #### SHAI Pickard ([id number]) [facility] ([facility]) [address] [place] [address] Progesterone [Mass/Vol]on REF VALUES Male <0.2-0.8 Follicular Phase <0.2-1.5 Luteal Phase 7.4-15.4 Post Menopausal <0.2-0.2 1ST Trimester 12.0-84.0 2ND Trimester 10.2-58.8 3RD Trimester 46.5-160 Progesterone is performed using the [employer] Access Immunoassay. Progesterone testing is performed using a different test methodology at [facility] than other [facility]. Direct result comparison should only be made within the same method. [facility] KELSY US PELVIS LIMITED FOLLIC LES-FOLLICLE STUDIES PERFORMEDon 03-20-2024 KELSY US PELVIS LIMITED FOLLICLES-FOLLICLE STUDIES PERFORMED Follicle scan performed with follicle measurements in report. Normal [facility] Estradiolon 03-19-2024 E2 [Mass/Vol] 3760 pg/mL Normal [facility] Comment on above: Order Comment: HIV [...] By: #### 5 6888-1 #### SHAI Pickard ([id number]) [facility] ([facility]) [address] [place] [address] Follicle Diameter USon 03-19 Follicle scan performed with follicle measurements in report. RIS SECTRA ONLY [facility] Work Phone: Radiology Study observation (narrative) [facility] Work Phone: Progesteroneon 03-19-2024 Progesterone [Mass/Vol] 1.1 ng/mL Normal [facility] Comment on above: Order Comment: HIV [...] By: #### 5 6888-1 #### SHAI Pickard ([id number]) [facility] ([facility]) [address] [place] [address] KELSY US PELVIS LIMITED FOLLIC LES-FOLLICLE STUDIES PERFORMEDon 03-19-2024 KELSY US PELVIS LIMITED FOLLICLES-FOLLICLE STUDIES PERFORMED Follicle scan performed with follicle measurements in report. Normal [facility] E2 [Mass/Vol]on 03-17-2024 REF VALUES FOLLICULAR PHASE 20-144 MID CYCLE 64-357 LUTEAL PHASE 56-214 POSTMENOPAUSE < 32 PREPUBERTY < 20 FEMALE 10-18Y 8-110 MALE 10-18Y < 20 ADULT MALE < 40 Estradiol measurement is performed using the [employer] [place] [employer] Access Estradiol Immunoassay. Estradiol testing is performed using a different test methodology at [facility] than other [facility]. Direct result comparison should only be made within the same method. [facility] Estradiolon 03-17-2024 E2 [Mass/Vol] 1462 pg/mL [facility] E2 [Mass/Vol] 1462 pg/mL Normal [facility] Comment on above: Order Comment: HIV A g/Ab screen is performed using the Siemens [employer] HIV Ag/Ab Combo assay which detects the presence of HIV p24 antigen as well as antibodies to HIV-1 (Group M and O) and HIV-2. No laboratory evidence of HIV infection. If acute HIV infection is suspected, consider testing for HIV RNA by PCR (viral load). Performed By: #### 5 6888-1 #### SHAI Pickard ([id number]) [facility] ([facility]) [address] [place] [address] Follicle Diameter USon 03-17 Follicle scan performed with follicle measurements in report. Trilaminar appearance to the endometrium is noted. Physiologic free fluid is noted in the cul de sac. Notably retroverted uterus. Two small complex ovarian cysts noted, one on the left and one on the right. RIS SECTRA ONLY Radiology Study observation (narrative) [facility] Work Phone: Follicle Diameter USOrdered By: Leigh Ann Tuttle on 03-17-2024 [facility] Work Phone: Progesteroneon 03-17-2024 Progesterone [Mass/Vol] 0.6 ng/mL Normal [facility] Comment on above: Order Comment: HIV A g/Ab screen is performed using the [employer] HIV Ag/Ab Combo assay which detects the presence of HIV p24 antigen as well as antibodies to HIV-1 (Group M and O) and HIV-2. No laboratory evidence of HIV infection. If acute HIV infection is suspected, consider testing for HIV RNA by PCR (viral load). Performed By: #### 5 6888-1 #### SHAI Pickard ([id number]) [facility] ([facility]) [address] [place] [address] KELSY US PELVIS LIMITED FOLLIC LES-FOLLICLE STUDIES PERFORMEDon 03-17-2024 KELSY US PELVIS LIMITED FOLLICLES-FOLLICLE STUDIES PERFORMED Follicle scan performed with follicle measurements in report. Trilaminar appearance to the endometrium is noted. Physiologic free fluid is noted in the cul de sac. Notably retroverted uterus. Two small complex ovarian cysts noted, one on the left and one on the right. Normal [facility] E2 [Mass/Vol]on 03-15-2024 REF VALUES FOLLICULAR PHASE 20-144 MID CYCLE 64-357 LUTEAL PHASE 56-214 POSTMENOPAUSE < 32 PREPUBERTY < 20 FEMALE 10-18Y 8-110 MALE 10-18Y < 20 ADULT MALE < 40 Estradiol measurement is performed using the [employer] Access Estradiol Immunoassay. Estradiol testing is performed using a different test methodology at [facility] than other [facility]. Direct result comparison should only be made within the same method. [facility] Estradiolon 03-15-2024 E2 [Mass/Vol] 721 pg/mL [facility] E2 [Mass/Vol] 721 pg/mL Normal [facility] Comment on above: Order Comment: REF V ALUESFOLLICULAR PHASE 20-144MID CYCLE 64-357LUTEAL PHASE 56-214POSTMENOPAUSE < 32PREPUBERTY < 20FEMALE 10-18Y 8-110MALE 10-18Y < 20ADULT MALE < 40Estradiol measurement is performed using the [employer] Access Estradiol Immunoassay. Estradiol testing is performed using a different test methodology at [facility] than other [facility]. Direct resultcomparison should only be made within the same method. Performed By: #### 1 6128-1 #### SHAI Pickard ([id number]) [facility] ([facility]) [address] [place] [address] Follicle Diameter USon 03-15 Follicle scan performed with follicle measurements in report., Trilaminar appearance to the endometrium is noted., and Free fluid is noted in the cul de sac. RIS SECTRA ONLY [facility] Work Phone: Radiology Study observation (narrative) [facility] Work Phone: KELSY US PELVIS LIMITED FOLLIC LES-FOLLICLE STUDIES PERFORMEDon 03-15-2024 KELSY US PELVIS LIMITED FOLLICLES-FOLLICLE STUDIES PERFORMED Follicle scan performed with follicle measurements in report., Trilaminar appearance to the endometrium is noted., and Free fluid is noted in the cul de sac. Normal [facility] E2 [Mass/Vol]on 03-09-2024 REF VALUES FOLLICULAR PHASE 20-144 MID CYCLE 64-357 LUTEAL PHASE 56-214 POSTMENOPAUSE < 32 PREPUBERTY < 20 FEMALE 10-18Y 8-110 MALE 10-18Y < 20 ADULT MALE < 40 Estradiol measurement is performed using the [employer] Access Estradiol Immunoassay. Estradiol testing is performed using a different test methodology at [facility] than other [facility]. Direct result comparison should only be made within the same method. [facility] Estradiolon 03-09-2024 E2 [Mass/Vol] pg/mL pg/mL [facility] E2 [Mass/Vol] pg/mL Normal [facility] Comment on above: Order Comment: REF V ALUESFOLLICULAR PHASE 20-144MID CYCLE 64-357LUTEAL PHASE 56-214POSTMENOPAUSE < 32PREPUBERTY < 20FEMALE 10-18Y 8-110MALE 10-18Y < 20ADULT MALE < 40Estradiol measurement is performed using the [employer] Access Estradiol Immunoassay. Estradiol testing is performed using a different test methodology at [facility] than other [facility]. Direct resultcomparison should only be made within the same method. Performed By: #### 1 6128-1 #### SHAI Pickard ([id number]) [facility] ([facility]) [address] [place] [id number] Follicle Diameter USon 03-09 Follicle scan performed with follicle measurements in report., Trilaminar appearance to the endometrium is noted., and Free fluid is noted in the cul de sac. RIS SECTRA ONLY Radiology Study observation (narrative) [facility] Work Phone: Follicle Diameter USOrdered By: Alicia Morgan on 03-09-2024 [facility] Work Phone: Hematocrit Auto (Bld) [Volum e fraction]on 03-09-2024 Hematocrit (Bld) [Volume fraction] 43.2 % 36.0 - 46.0 % [facility] Interpretation and review of laboratory results Normal [facility] Hematocrit (Bld) [Volume fraction] 43.2 % Normal 36.0-46.0 [facility] Comment on above: Performed By: #### 1 6128-1 #### SHAI Pickard ([id number]) [facility] ([facility]) [address] [place] [address] KELSY US PELVIS LIMITED FOLLIC LES-FOLLICLE STUDIES PERFORMEDon 03-09-2024 KELSY US PELVIS LIMITED FOLLICLES-FOLLICLE STUDIES PERFORMED Follicle scan performed with follicle measurements in report., Trilaminar appearance to the endometrium is noted., and Free fluid is noted in the cul de sac. 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 IV Fluids: 500 cc EBL: 5 cc UOP: Not recorded Specimen: Oocytes Complications: None Number of Oocytes right ovary: 17 Ovarian acc ss (right): Easy Number of Oocytes left ovary: 13 Ovarian access (left): Easy Endometrial thickness: n/a Needle type: Single Additional notes: KELSY LAB RIS [facility] Work Phone: Lutropinon 02-22-2024 Lutropin Qn 35.3 IU/L Normal [facility] Comment on above: Result Comment: LH R eference Values Follicular Phase 1.5-10.0 Mid-Cycle 13.0-72.0 Luteal Phase 0.5-13.0 Menopause 15.0-65.0 Pre-puberty 0- 3.0 Children 0- 6.0 Adult Male 1.0- 9.0 Luteinizing Hormone is performed using the [employer] Access Immunoassay. LH testing is performed using a different test methodology at [facility] than [facility]. Direct result comparison should only be made within the same method. Performed By: #### 1 6128-1 #### SHAI Pickard ([id number]) [facility] ([facility]) [address] [place] [address] Progesteroneon 02-22-2024 Progesterone [Mass/Vol] 5.0 ng/mL Normal [facility] Comment on above: Order Comment: REF V ALUESMale <0.2-0.8Follicular Phase <0.2-1.5Luteal Phase 7.4-15.4Post Menopausal <0.2-0.21ST Trimester 12.0-84.02ND Trimester 10.2-58.83RD Trimester 46.5-160Progesterone is performed using the [employer] Access Immunoassay.Progesterone testing is performed using a different test methodology at [facility] than [facility]. Direct result comparison should only be made within the same method. Performed By: #### 1 6128-1 #### SHAI Pickard ([id number]) [facility] ([facility]) [address] [place] [address] E2 [Mass/Vol]Ordered By: Christi Infante on 02-21-2024 REF VALUES FOLLICULAR PHASE 20-144 MID CYCLE 64-357 LUTEAL PHASE 56-214 POSTMENOPAUSE < 32 PREPUBERTY < 20 FEMALE 10-18Y 8-110 MALE 10-18Y < 20 ADULT MALE < 40 Estradiol measurement is performed using the [employer] Estradiol Immunoassay. Estradiol testing is performed using a different test methodology at [facility] than other [facility]. Direct result comparison should only be made within the same method. [facility] EstradiolOrdered By: Janet Ritchie on 02-21-2024 E2 [Mass/Vol] 5153 pg/mL [facility] Estradiolon 02-21-2024 E2 [Mass/Vol] 5153 pg/mL Normal [facility] Comment on above: Order Comment: REF V ALUESFOLLICULAR PHASE 20-144MID CYCLE 64-357LUTEAL PHASE 56-214POSTMENOPAUSE < 32PREPUBERTY < 20FEMALE 10-18Y 8-110MALE 10-18Y < 20ADULT MALE < 40Estradiol measurement is performed using the [employer] Estradiol Immunoassay. Estradiol testing is performed using a different test methodology at [facility] than other [facility]. Direct resultcomparison should only be made within the same method. Performed By: #### 1 6128-1 #### SHAI Pickard ([id number]) [facility] ([facility]) [address] [place] [address] Follicle Diameter USon 02-20 Follicle scan performed with follicle measurements in report. RIS SECTRA ONLY Radiology Study observation (narrative) [facility] Work Phone: Follicle Diameter USOrdered By: Juan Chavarria on 02-21-2024 [facility] Work Phone: Luteinizing Hormone (LH)on Lutropin Qn 0.9 m[IU]/mL IU/L [facility] Comment on above: LH Reference Values Follicular Phase 1.5-10.0 Mid-Cycle 13.0-72.0 Luteal Phase 0.5-13.0 Menopause 15.0-65.0 Pre-puberty 0- 3.0 Children 0- 6.0 Adult Male 1.0- 9.0 Luteinizing Hormone is performed using the [employer] Access Immunoassay. LH testing is performed using a different test methodology at [facility] than other [facility]. Direct result comparison should only be made within the same method. Lutropinon 02-21-2024 Lutropin Qn 0.9 IU/L Normal [facility] Comment on above: Result Comment: LH R eference Values Follicular Phase 1.5-10.0 Mid-Cycle 13.0-72.0 Luteal Phase 0.5-13.0 Menopause 15.0-65.0 Pre-puberty 0- 3.0 Children 0- 6.0 Adult Male 1.0- 9.0 Luteinizing Hormone is performed using the [employer] Access Immunoassay. LH testing is performed using a different test methodology at [facility] than [facility]. Direct result comparison should only be made within the same method. Performed By: #### 1 6128-1 #### SHAI Pickard ([id number]) [facility] ([facility]) [address] [place] [address] Lutropin Qnon 02-21-2024 [facility] Progesteroneon 02-21-2024 Progesterone [Mass/Vol] 1.3 ng/mL U [facility] Progesterone [Mass/Vol] 1.3 ng/mL Normal [facility] Comment on above: Order Comment: REF V ALUESMale <0.2-0.8Follicular Phase <0.2-1.5Luteal Phase 7.4-15.4Post Menopausal <0.2-0.21ST Trimester 12.0-84.02ND Trimester 10.2-58.83RD Trimester 46.5-160Progesterone is performed using the [employer] Access Immunoassay.Progesterone testing is performed using a different test methodology at [facility] than [facility]. Direct result comparison should only be made within the same method. Performed By: #### 5 196-1 #### SHAI Pickard ([id number]) [facility] ([facility]) [address] [place] [address] Progesterone [Mass/Vol]on REF VALUES Male <0.2-0.8 Follicular Phase <0.2-1.5 Luteal Phase 7.4-15.4 Post Menopausal <0.2-0.2 1ST Trimester 12.0-84.0 2ND Trimester 10.2-58.8 3RD Trimester 46.5-160 Progesterone is performed using the [employer] Immunoassay. Progesterone testing is performed using a different test methodology at [facility] than other [facility]. Direct result comparison should only be made within the same method. [facility] KELSY US PELVIS LIMITED FOLLIC LES-FOLLICLE STUDIES PERFORMEDon 02-21-2024 KELSY US PELVIS LIMITED FOLLICLES-FOLLICLE STUDIES PERFORMED Follicle scan performed with follicle measurements in report. Normal [facility] Estradiolon 02-20-2024 E2 [Mass/Vol] 3718 pg/mL Normal [facility] Comment on above: Order Comment: REF V ALUESFOLLICULAR PHASE 20-144MID CYCLE 64-357LUTEAL PHASE 56-214POSTMENOPAUSE < 32PREPUBERTY < 20FEMALE 10-18Y 8-110MALE 10-18Y < 20ADULT MALE < 40Estradiol measurement is performed using the [employer] Estradiol Immunoassay. Estradiol testing is performed using a different test methodology at [facility] than other [facility]. Direct resultcomparison should only be made within the same method. Performed By: #### 5 196-1 #### SHAI Pickard ([id number]) [facility] ([facility]) [address] [place] [address] Progesteroneon 02-20-2024 Progesterone [Mass/Vol] 1.4 ng/mL Normal [facility] Comment on above: Order Comment: REF V ALUESMale <0.2-0.8Follicular Phase <0.2-1.5Luteal Phase 7.4-15.4Post Menopausal <0.2-0.21ST Trimester 12.0-84.02ND Trimester 10.2-58.83RD Trimester 46.5-160Progesterone is performed using the [employer] Access Immunoassay.Progesterone testing is performed using a different test methodology at [facility] than other [facility]. Direct result comparison should only be made within the same method. Performed By: #### 5 196-1 #### SHAI Pickard ([id number]) [facility] ([facility]) [address] [place] [address] KELSY US PELVIS LIMITED FOLLIC LES-FOLLICLE STUDIES PERFORMEDon 02-20-2024 KELSY US PELVIS LIMITED FOLLICLES-FOLLICLE STUDIES PERFORMED Follicle scan performed with follicle measurements in report. Normal [facility] E2 [Mass/Vol]on 02-18-2024 REF VALUES FOLLICULAR PHASE 20-144 MID CYCLE 64-357 LUTEAL PHASE 56-214 POSTMENOPAUSE < 32 PREPUBERTY < 20 FEMALE 10-18Y 8-110 MALE 10-18Y < 20 ADULT MALE < 40 Estradiol measurement is performed using the [employer] Estradiol Immunoassay. Estradiol testing is performed using a different test methodology at [facility] than other [facility]. Direct result comparison should only be made within the same method. [facility] Estradiolon 02-18-2024 E2 [Mass/Vol] 1472 pg/mL [facility] E2 [Mass/Vol] 1472 pg/mL Normal [facility] [facility] Comment on above: Order Comment: REF V ALUESFOLLICULAR PHASE 20-144MID CYCLE 64-357LUTEAL PHASE 56-214POSTMENOPAUSE < 32PREPUBERTY < 20FEMALE 10-18Y 8-110MALE 10-18Y < 20ADULT MALE < 40Estradiol measurement is performed using the [place] Access Estradiol Immunoassay. Estradiol testing is performed using a different test methodology at [facility] than other [facility]. Direct resultcomparison should only be made within the same method. Performed By: #### 5 196-1 #### SHAI Pickard ([id number]) [facility] ([facility]) [address] [place] [address] Follicle Diameter USon 02-17 Follicle scan performed with follicle measurements in report. Trilaminar appearance to the endometrium is noted. Free fluid is noted in the right paraovarian space. Notably retroverted uterus. RIS SECTRA ONLY Radiology Study observation (narrative) [facility] Work Phone: Follicle Diameter USOrdered By: Leigh Ann Tuttle on 02-18-2024 [facility] Work Phone: KELSY US PELVIS LIMITED FOLLIC LES-FOLLICLE STUDIES PERFORMEDon 02-18-2024 KELSY US PELVIS LIMITED FOLLICLES-FOLLICLE STUDIES PERFORMED Follicle scan performed with follicle measurements in report. Trilaminar appearance to the endometrium is noted. Free fluid is noted in the right paraovarian space. Notably retroverted uterus. Normal [facility] E2 [Mass/Vol]on 02-16-2024 REF VALUES FOLLICULAR PHASE 20-144 MID CYCLE 64-357 LUTEAL PHASE 56-214 POSTMENOPAUSE < 32 PREPUBERTY < 20 FEMALE 10-18Y 8-110 MALE 10-18Y < 20 ADULT MALE < 40 Estradiol measurement is performed using the [place] Access Estradiol Immunoassay. Estradiol testing is performed using a different test methodology at [facility] than other [facility]. Direct result comparison should only be made within the same method. [facility] Estradiolon 02-16-2024 E2 [Mass/Vol] 639 pg/mL [facility] E2 [Mass/Vol] 639 pg/mL Normal [facility] Comment on above: Order Comment: REF V ALUESFOLLICULAR PHASE 20-144MID CYCLE 64-357LUTEAL PHASE 56-214POSTMENOPAUSE < 32PREPUBERTY < 20FEMALE 10-18Y 8-110MALE 10-18Y < 20ADULT MALE < 40Estradiol measurement is performed using the [place] Access Estradiol Immunoassay. Estradiol testing is performed using a different test methodology at [facility] than other [facility]. Direct resultcomparison should only be made within the same method. Performed By: #### 5 196-1 #### SHAI Pickard ([id number]) [facility] ([facility]) [address] [place] [address] KELSY US PELVIS LIMITED FOLLIC LES-FOLLICLE STUDIES PERFORMEDon 02-16-2024 KELSY US PELVIS LIMITED FOLLICLES-FOLLICLE STUDIES PERFORMED Follicle scan performed with follicle measurements in report. and Trilaminar appearance to the endometrium is noted. Normal [facility] E2 [Mass/Vol]on 02-09-2024 REF VALUES FOLLICULAR PHASE 20-144 MID CYCLE 64-357 LUTEAL PHASE 56-214 POSTMENOPAUSE < 32 PREPUBERTY < 20 FEMALE 10-18Y 8-110 MALE 10-18Y < 20 ADULT MALE < 40 Estradiol measurement is performed using the [place] Access Estradiol Immunoassay. Estradiol testing is performed using a different test methodology at [facility] than other [facility]. Direct result comparison should only be made within the same method. [facility] Estradiolon 02-09-2024 E2 [Mass/Vol] pg/mL pg/mL [facility] E2 [Mass/Vol] pg/mL Normal [facility] Comment on above: Order Comment: REF V ALUESFOLLICULAR PHASE 20-144MID CYCLE 64-357LUTEAL PHASE 56-214POSTMENOPAUSE < 32PREPUBERTY < 20FEMALE 10-18Y 8-110MALE 10-18Y < 20ADULT MALE < 40Estradiol measurement is performed using the [employer] [place] Access Estradiol Immunoassay. Estradiol testing is performed using a different test methodology at [facility] than other [facility]. Direct resultcomparison should only be made within the same method. Performed By: #### 5 196-1 #### SHAI Pickard ([id number]) [facility] ([facility]) [address] [place] [address] Follicle Diameter USon 02-08 Follicle scan performed with follicle measurements in report. [facility] Radiology Study observation (narrative) [facility] Work Phone: Follicle Diameter USOrdered By: Juan Chavarria on 02-09-2024 [facility] Work Phone: Hematocrit Auto (Bld) [Volum e fraction]on 02-09-2024 Hematocrit (Bld) [Volume fraction] 42.9 % 36.0 - 46.0 % [facility] Interpretation and review of laboratory results Normal [facility] Hematocrit (Bld) [Volume fraction] 42.9 % Normal 36.0-46.0 [facility] Comment on above: Performed By: #### 4 544-3 #### JOSEPH ESQUIVEL ([id number]) [facility] ([facility]) [id number] [place] [address] KELSY US PELVIS LIMITED FOLLIC LES-FOLLICLE STUDIES PERFORMEDon 02-09-2024 KELSY US PELVIS LIMITED FOLLICLES-FOLLICLE STUDIES PERFORMED Follicle scan performed with follicle measurements in report. Normal [facility] HCG ( test) Ql (U)o n 01-28-2024 Interpretation and review of laboratory results Normal [facility] Work Phone: Preg Test, Ur Negative Negative [facility] Work Phone: [facility] Work Phone: No Panel Informationon [...] well, no immediate complications KELSY LAB RIS [facility] Work Phone: Surgical pathology studyon 0 01-28-2024 Surgical pathology study Pathology report.total SEE COMMENT Surgical Pathology Case: [id number] Authorizing Provider: eLigh Ann Tuttle MD Collected: 01/28/2024 1027 Ordering Location: [facility] Chanel Received: 01/28/2024 1027 [place] Pathologist: Yamila Leo MD Specimen: ENDOMETRIUM POLYPECTOMY [...] entirely submitted in 1 cassette. JEK/SBS [facility] IGP,APTIMA HPV,AGE GDLNon AGE GDLN ACOG TESTING Note . [facility] Comment on above: TESTS RESULT FLAG UN ITS REF RANGE LAB Clinician Provided Cytology Information Source.............Cervix;Endocervix No. of containers..01 ThinPrep Vial Age Algo ACOG Telma... FLAG LEGEND: L-Low Normal,H-High Normal,LL-Alert Low,HH-Alert High <-Panic Low,>-Panic High,A-Abnormal,AA-Critical Abnormal Performed at: 01 =G [facility] [place] [address] Nidhi Fay MD, IGP, RFX APTIMA HPV ASCU Note . [facility] Comment on above: TESTS RESULT FLAG UN ITS REF RANGE LAB DIAGNOSIS: 02 NEGATIVE FOR INTRAEPITHELIAL LESION OR MALIGNANCY. Specimen adequacy: 02 Satisfactory for evaluation. Endocervical and/or squamous metaplastic cells (endocervical component) are present. Performed by: 02 Isac Masters Cloth Weaver ([facility]) . 02 Note: Note 02 The [...] High,A-Abnormal,AA-Critical Abnormal Performed at: 02 WB [facility] [address], [place] [address] Nidhi Fay MD, Performed at: =G - [facility] [address] [id number] Lawn Maintenance Worker: Nidhi Fay MD, Phone: [phone] Performed at: WB - [facility] [address] [id number] Lawn Maintenance Worker: Nidhi Fay MD, Phone: [phone] BRUSH-SPATULA CERVIX ENDOCERVIX [facility] Blood type and Indirect anti body screen panel (Bld)on 2023 ABO group Nom (Bld) O [facility] Blood group antibody screen Ql Negative [facility] D Ag Ql (Bld) Positive [facility] ABO group Nom (Bld) O Normal [facility] Comment on above: Performed By: #### 3 4532-2 #### JOSEPH ESQUIVEL ([id number]) [facility] ([facility]) [address] Blood group antibody screen Ql Negative [facility] Comment on above: Performed By: #### 3 4532-2 #### JOSEPH ESQUIVEL ([id number]) [facility] ([facility]) [address] D Ag Ql (Bld) Positive [facility] Comment on above: Performed By: #### 3 4532-2 #### JOSEPH ESQUIVEL ([id number]) [facility] ([facility]) [address] [place] [address] [place] C. trachomatis and N. gonorr hoeae DNA EDELMIRA+probe Nom (Unsp spec)on 2023 C. trachomatis rRNA EDELMIRA+probe Ql (Unsp spec) Negative Normal Negative [facility] Comment on above: Order Comment: The A [...] By: #### 3 6903-3 #### SHAI Pickard ([id number]) [facility] ([facility]) [address] [place] [address] N. gonorrhoeae DNA Probe+sig amp Ql (Unsp spec) Negative Normal Negative [facility] Comment on above: Order Comment: The [...] By: #### 3 6903-3 #### SHAI Pickard ([id number]) [facility] ([facility]) [address] [place] [address] HIV 1+2 Ab+HIV1 p24 Agon HIV 1+2 Ab+HIV1 p24 Ag IA Ql Non-Reactive Normal Nonreactive [facility] Comment on above: Order Comment: HIV A g/Ab screen is performed using the Siemens BrightTALK HIV Ag/Ab Combo assay which detects the presence of HIV p24 antigen as well as antibodies to HIV-1 (Group M and O) and HIV-2. No laboratory evidence of HIV infection. If acute HIV infection is suspected, consider testing for HIV RNA by PCR (viral load). Performed By: #### 5 6888-1 #### SHAI Pickard ([id number]) [facility] ([facility]) [address] [place] [address] Hepatitis B virus surface Ag on 2023 HBV surface Ag IA Ql Non-Reactive Normal Nonreactive [facility] Comment on above: Result Comment: Biot in interference may cause falsely decreased results. Patients taking a Biotin dose of up to 5 mg/day should refrain from taking Biotin for 24 hours before sample collection. Providers may contact their local laboratory for further information. Performed By: #### 5 196-1 #### SHAI Pickard ([id number]) [facility] ([facility]) [address] [place] [address] Hepatitis C virus Abon 12-10 HCV Ab Ql (S) Non-Reactive Normal Nonreactive [facility] Comment on above: Result Comment: Resu lts from patients taking biotin supplements or receiving high-dose biotin therapy should be interpreted with caution due to possible interference with this test. Providers may contact their local laboratory for further information. Performed By: #### 1 6128-1 #### SHAI Pickard ([id number]) [facility] ([facility]) [address] [place], [place] [id number] Rubella virus IgG IA Qnon Rubella virus IgG IA Ql Positive Normal Negative [facility] Comment on above: Order Comment: NEGAT [...] By: #### 5 334-8 #### SHAI Pickard ([id number]) [facility] ([facility]) [address] [place], [place] [id number] Rubella virus IgG Qn (S) 1.2 IA Normal <=0.7 [facility] Comment on above: Order [...] By: #### 5 334-8 #### SHAI Pickard ([id number]) [facility] ([facility]) [address] [place] [address] Treponema pallidum Ab.IgG+Ig Mon 2023 T. pallidum IgG+IgM IA Ql (S) Non-Reactive Normal Nonreactive [facility] Comment on above: Result Comment: No s ignificant level of Treponema pallidum antibody detected. Repeat testing in 2 to 4 weeks may be considered if early infection or incubating syphilis infection is suspected. Performed By: #### 4 7236-5 #### SHAI Pickard ([id number]) [facility] ([facility]) [address] [place] [address] VZV IgG IA Ql (S)on 12-11-19 24 VARICELLA ZOSTER IGG INDEX 5.6 IA High <=0.8 [facility] Comment on above: Order Comment: NEGAT [...] By: #### 1 5410-4 #### SHAI Pickard ([id number]) [facility] ([facility]) [address] [place] [address] Varicella zoster virus Ab.Ig Biju 2023 VZV IgG IA Ql (S) Positive Abnormal Negative [facility] Comment on above: Order Comment: NEGAT DEZ: [...] By: #### 1 5410-4 #### SHAI Pickard ([id number]) [facility] ([facility]) [address] [place] [address] Ambulatory Visit Summaryon 0 10-02-2023 Ambulatory Visit [...] knee anterior cruciate ligament allograft reconstruction with nxxi-xgpayf-cwyo, debridment medial meniscus tear, patellofemoral chondroplasty-Grade I-II (07/28/2013), Tonsillectomy, tubes in the ears. Discharge Vitals Temperature (Oral) 36.8 ?C Heart Rate (Peripheral) 65 Blood Pressure 118/66 Height 162 cm Height 64 in Weight 76.7 kg Weight 168.74 lb BMI 29.23 What to do next Scheduled Follow-Up Appointments Thursday 7:20 AM EDT With: Princess Dumont Where: [facility] Primary Care Normal [facility] Family Medicine Office/Clini c Noteon 10-02-2023 [...] lot of blood work ordered by her COUNTER PROFESSIONAL and we are going to go over [...] mg once day. She has been taking jkot-oqo-pvsohsn magnesium at night since initiating Topamax. Weight management. The patient expresses a desire to lose weight and re-initiate her Adipex. She has previously tried Aryan qvfs-xbc-zlsudpu but found it ineffective. 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 She is agreeable trying vitamin [...] Assessment/Plan 1. Frequent headaches (R51.9: Headache, unspecified) [facility]. [facility] is [...] with me in (more content not included)... [facility] Comment on above: Result Comment: Elec tronically Signed By: Princess Dumont\.br\Date and Time Signed: 10/02/23 16:44 EDT\.br\Electronically Co-Signed By: Raj Chu\.br\Date and Time Co-Signed: 10/02/23 15:48 EDT Lab Reportson 10-02-2023 Lab Reports [id number] 02#1.00TIFF [facility] Patient Educationon 10-02-19 Patient Education [...] numbers. This can be done either in [place] ([place] or metric measurements. Note that charts and online BMI calculators are available to help you find your BMI quickly and easily without having to do these calculations yourself. To calculate your BMI in [place] ([place] measurements: 1. Measure your weight in [...] for Disease Control and Prevention: www.cdc.gov ? [place] Heart Association: www.heart.org ? National Heart, Lung, and Blood [place]: www.nhlbi.nih.gov Summary ? Body mass index (BMI) is a number that is calculated from a person's weight and height. ? BMI may help estimate how much of a person's weight is composed of fat. BMI can help identify those who may be at higher risk for certain medical problems. ? BMI can be measured using [place] measurements or metric measurements. ? BMI charts are used to identify whether you are underweight, normal weight, overweight, or obese. This information is not intended to replace advice given to you by your health care provider. Make sure you discuss any questions you have with your health care provider. Document Revised: 01/11/2020 Document Reviewed: 11/18/2019 [facility] Patient Education ? 2022 [employer]. Dermatology Eczema Eczema refers to a group [...] symptoms? S (more content not included)... Normal [facility] Transfer Inon 09-02-2023 Transfer In [id number] 2#1.00TIFF Normal [facility] Office/Clini c Noteon 08-29-2023 [...] and encouraged her to go see her COUNTER PROFESSIONAL. The patient was overweight with an elevated BMI. Her laboratories I ordered were not performed, and she did not do the x-ray that I ordered either. She presents for headaches again. Cervicalgia and persistent headaches. The patient underwent cervical x-ray in 02/20/2023 in [place], the day after her last visit on [...] 06/2023 or 07/2023 and done at [place]. She is uncertain if cholesterol levels were checked. Her bowel movements and urination are normal. She and her switched clinics where she is the patient for an IVF and are waiting for an appointment within the next 2 months. She has a . 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 Ibuprofen every 6 to 8 hours. Tylenol [...] appearing. EN (more content not included)... Normal [facility] Comment on above: Result Comment: Elec [...] numbers. This can be done either in [place] (U.[place] or metric measurements. Note that charts and online BMI calculators are available to help you find your BMI quickly and easily without having to do these calculations yourself. To calculate your BMI in [place] ([place] measurements: 1. Measure your weight in [...] for Disease Control and Prevention: www.cdc.gov ? [place] Heart Association: www.heart.org ? National Heart, Lung, and Blood [place]: www.nhlbi.nih.gov Summary ? Body mass index (BMI) is a number that is calculated from a person's weight and height. ? BMI may help estimate how much of a person's weight is composed of fat. BMI can help identify those who may be at higher risk for certain medical problems. ? BMI can be measured using [place] measurements or metric measurements. ? BMI charts are used to identify whether you are underweight, normal weight, overweight, or obese. This information is not intended to replace advice given to you by your health care provider. Make sure you discuss any questions you have with your health care provider. Document Revised: 01/11/2020 Document Reviewed: 11/18/2019 [facility] Patient Education ? 2022 [employer] Endocrinology Carbohydrate Counting for Diabetes Mellitus, [...] contain carbohydra (more content not included)... Normal [facility] DHEA SERUMon 07-31-2022 Dehydroepiandrosterone (DHEA) 429 ng/dL Normal 31-701 [facility] Comment on above: Performed By: #### D Abdi. #### [facility] [address] [place] [address] Dr. Meghna Alas ANTI-MULLERIAN HORMONEon Anti-Mullerian Hormone (AMH) 2.01 ng/mL Normal [facility] Comment on above: Result Comment: For assays employing antibodies, the possibility exists for interference by heterophile antibodies in the samples.1 1.Ramon Calderon Interferences in Immunoassays - still a threat. Clin. Chem. 2000; 46: 5815-1367. This test was developed and its performance characteristics determined by [employer]. It has not been cleared or approved by the Food and Drug Administration. Reference Range: Females 20 - 25y: 1.23 - 11.51 Median 4.70 AMH concentrations of >= 1.06 ng/mL is correlated with a better response to ovarian stimulation, produced more retrievable oocytes and higher odds of live according to Lindseyer et al. Fertility and Sterility. 2010: 94:3048-3663. The current AMH test method correlates with [...] tumor. Performed By: #### A JOSE #### [facility] [address] [address] [address] Meghna Alas PAP ACOG PANEL 2: 21 to 29on 07-29-2022 . . Normal [facility] Comment on above: Performed By: #### 4 [id number] ####[facility] [address] [id number] Alas Age Gdln ACOG Testing - [facility] Comment on above: Performed By: #### 4 201890 ####[facility] [address] [address]DrBetito Alas DIAGNOSIS: Comment [facility] Comment on above: Result Comment: NEGA TIVE FOR INTRAEPITHELIAL LESION OR MALIGNANCY. Performed By: #### 4 [id number] ####[facility] [address] [address]DrBetito Alas Methodology: Comment [facility] Comment on above: Result Comment: This liquid based ThinPrep(R) pap test was screened with the use of an image guided system. Performed By: #### 4 [id number] ####[facility] [address] [address]DrBetito Alas Note: Comment [facility] Comment on above: Result Comment: The Pap smear is a screening test designed to aid in the detection of premalignant and malignant conditions of the uterine cervix. It is not a diagnostic procedure and should not be used as the sole means of detecting cervical cancer. Both false-positive and false-negative reports do occur. . Performed By: #### 4 [id number] ####[facility] [address] [address]DrBetito Alas Performed by: Comment Normal [facility] Comment on above: Result Comment: Antonella Villarreal, Supervisory Cloth Weaver (ASCP) Performed By: #### 4 836792 ####[facility] [address] [address]Dr. Meghna Alas Reflex Criteria: Comment Normal [facility] Comment on above: Result Comment: The HPV DNA reflex criteria were not met with this specimen result therefore, no HPV testing was performed. . Performed By: #### 4 [id number] ####[facility] [address] [address]DrBetito Alas Specimen adequacy: Comment Normal [facility] Comment on above: Result Comment: Sati sfactory for evaluation. Endocervical and/or squamous metaplastic cells (endocervical component) are present. Performed By: #### 4 [id number] ####[facility] [address] [address]DrBetito Alas DHEA-SULFATEon 07-27-2022 DHEA-Sulfate 195.0 ug/dL Normal 110.0-431.7 [facility] Comment on above: Performed By: #### D RADHA #### [facility] [address] [place] [address] Dr. Meghna Alas FSHon 07-27-2022 FSH 11.4 mIU/mL Normal [facility] Comment on above: Result Comment: Adul t Female: Follicular phase 3.5 - 12.5 Ovulation phase 4.7 - 21.5 Luteal phase 1.7 - 7.7 Postmenopausal 25.8 - 134.8 Performed By: #### L BCFS #### [facility] [address] [place] [address] Dr. Meghna Alas LUTEINIZING HORMONE (LH)on 0 07-27-2022 LH 61.8 mIU/mL Normal [facility] Comment on above: Result Comment: Adul t Female: Follicular phase 2.4 - 12.6 Ovulation phase 14.0 - 95.6 Luteal phase 1.0 - 11.4 Postmenopausal 7.7 - 58.5 Performed By: #### L BCLH #### [facility] [address] [address] [address] Meghna Alas US PELVIS AND TRANSVAGon [...] by: RACQUEL UNLU Date: 2022-07-27 08:10 Normal [facility] CBC AUTO DIFFon 07-26-2022 BASO # 0.1 103/ul Normal 0.0-0.1 [facility] Comment on above: Performed By: #### C BC #### [facility] [address] [place] [address] Dr. Meghna Alas Basophils/100 WBC (Bld) 0.8 % Normal 0.2-2.0 [facility] Comment on above: Performed By: #### C BC #### [facility] [address] [place] [address] Dr. Meghna Alas EO # 0.2 103/ul Normal 0.0-0.7 [facility] Comment on above: Performed By: #### C BC #### [facility] [address] [place] [address] Dr. Meghna Alas Eosinophils/100 WBC (Bld) 3.7 % Normal 0.9-7.0 [facility] Comment on above: Performed By: #### C BC #### [facility] [address] [place] [address] Dr. Meghna Alas Erythrocyte distribution width (RBC) [Ratio] 11.7 % Normal 11.0-15.0 [facility] Comment on above: Performed By: #### C BC #### [facility] [address] [place] [address] Dr. Meghna Alas Hematocrit (Bld) [Volume fraction] 43.6 % Normal 36.0-48.0 [facility] Comment on above: Performed By: #### C BC #### [facility] [address] [place] [address] Dr. Meghna Alas Hemoglobin (Bld) [Mass/Vol] 14.9 g/dL Normal 12.0-16.0 [facility] Comment on above: Performed By: #### C BC #### [facility] [facility] [address] [place] [address] Dr. Meghna Alas IG # 0.02 10e3/ul Normal 0.00-0.03 [facility] Comment on above: Performed By: #### C BC #### [facility] [address] [place] [address] Dr. Meghna Alas IG % 0.3 % Normal 0.0-0.5 [facility] Comment on above: Performed By: #### C BC #### [facility] [address] [place] [address] Dr. Meghna Alas LYMPH # 1.7 103/ul Normal 1.2-3.8 [facility] Comment on above: Performed By: #### C BC #### [facility] [address] [place] [address] Dr. Meghna Alas Lymphocytes/100 WBC (Bld) 27.7 % Normal 20.5-60.0 [facility] Comment on above: Performed By: #### C BC #### [facility] [address] [place] [address] Dr. Meghna Alas MANUAL DIFF REQ NO Normal [facility] Comment on above: Performed By: #### C BC #### [facility] [address] [place] [address] Dr. Meghna Alas MCH (RBC) [Entitic mass] 30.7 pg Normal 26.7-34.0 [facility] Comment on above: Performed By: #### C BC #### [facility] [address] [address] [address] Meghna Alas MCHC (RBC) [Mass/Vol] 34.2 g/dL Normal 29.9-35.2 [facility] Comment on above: Performed By: #### C BC #### [facility] [address] [place] [address] Dr. Meghna Alas MCV (RBC) [Entitic vol] 89.7 fL Normal 81.0-99.0 [facility] Comment on above: Performed By: #### C BC #### [facility] [address] [place] [address] Dr. Meghna Alas MONO # 0.4 103/ul Normal 0.3-0.8 [facility] Comment on above: Performed By: #### C BC #### [facility] [address] [place] [address] Dr. Meghna Alas Monocytes/100 WBC (Bld) 7.1 % Normal 1.7-12.0 [facility] Comment on above: Performed By: #### C BC #### [facility] [address] [place] [address] Dr. Meghna Alas NEUT # 3.7 103/ul Normal 1.4-6.5 [facility] Comment on above: Performed By: #### C BC #### [facility] [address] [place] [address] Dr. Meghna Alas Neutrophils/100 WBC (Bld) 60.4 % Normal 43.0-75.0 [facility] Comment on above: Performed By: #### C BC #### [facility] [address] [place] [address] Dr. Meghna Alas Platelet mean volume (Bld) [Entitic vol] 11.3 fL Normal 9.5-13.5 [facility] Comment on above: Performed By: #### C BC #### [facility] [address] [place] [address] Dr. Meghna Alas PLT 154 103/ul Normal 150-450 [facility] Comment on above: Performed By: #### C BC #### [facility] [address] [place] [address] Dr. Meghna Alas RBC 4.86 106/ul Normal 4.20-5.40 [facility] Comment on above: Performed By: #### C BC #### [facility] [address] [place] [address] Dr. Meghna Alas WBC 6.2 103/ul Normal 4.0-11.0 [facility] Comment on above: Performed By: #### C BC #### [facility] [address] [place] [address] Dr. Meghna Alas FREE T4on 07-26-2022 Free T4 [Mass/Vol] 1.04 ng/dL Normal 0.76-1.46 [facility] Comment on above: Performed By: #### F T4 #### [facility] [address] [place] [address] Dr. Meghna Alas GLYCOHEMOGLOBIN A1Con 2022 ADA RECOMMENDATION SEE BELOW Normal [facility] Comment on above: Result Comment: ADA RECOMMENDED LIMIT 4.0 - 6.0 ADA THERAPEUTIC TARGET < 7.0 ACTION SUGGESTED > 7.0 Performed By: #### A 1C #### [facility] [address] [place] [address] Dr. Meghna Alas Glucose [Mass/Vol] 82 mg/dL Normal [facility] Comment on above: Performed By: #### A 1C #### [facility] [address] [place] [address] Dr. Meghna Alas HbA1c (Bld) [Mass fraction] 4.5 % Normal 4.5-6.2 [facility] Comment on above: Performed By: #### A 1C #### [facility] [address] [place] [address] Dr. Meghna Alas TSHon 07-26-2022 TSH 1.522 uIU/mL Normal 0.358-3.740 [facility] Comment on above: Performed By: #### T SH #### [facility] [address] [place] [address] Dr. Meghna Alas Vital Signs Date Time Vital Sign Value Performing Clinician Facility 02-14-2025 14:44-0400 Body mass index (BMI) [Ratio] 42.07 kg/m2 Layo Sherwin DO Work Phone: [facility] 02-14-2025 14:44-0400 Body weight 107.73 kg Layo Sherwin DO Work Phone: [facility] 02-14-2025 14:44-0400 Diastolic blood pressure 82 mm[Hg] Layo Sherwin DO Work Phone: [facility] 02-14-2025 14:44-0400 Systolic blood pressure 110 mm[Hg] Layo Sherwin DO Work Phone: [facility] 02-07-2025 13:41-0400 Body mass index (BMI) [Ratio] 41.88 kg/m2 Yomaira Cesar PEDIATRIC CRITICAL CARE NURSE Work Phone: [facility] 02-07-2025 13:41-0400 Body weight 107.23 kg Yomaira Cesar PEDIATRIC CRITICAL CARE NURSE Work Phone: [facility] 02-07-2025 13:41-0400 Diastolic blood pressure 82 mm[Hg] Yomaira Cesar PEDIATRIC CRITICAL CARE NURSE Work Phone: [facility] 02-07-2025 13:41-0400 Systolic blood pressure 128 mm[Hg] Yomaira Cesar PEDIATRIC CRITICAL CARE NURSE Work Phone: [facility] 01-31-2025 14:07-0400 Body mass index (BMI) [Ratio] 40.57 kg/m2 Yomaira Cesar PEDIATRIC CRITICAL CARE NURSE Work Phone: [facility] 01-31-2025 14:07-0400 Body weight 103.87 kg Yomaira Cesar PEDIATRIC CRITICAL CARE NURSE Work Phone: [facility] 01-31-2025 14:07-0400 Diastolic blood pressure 76 mm[Hg] Yomaira Cesar PEDIATRIC CRITICAL CARE NURSE Work Phone: [facility] 01-31-2025 14:07-0400 Systolic blood pressure 122 mm[Hg] Yomaira Cesar PEDIATRIC CRITICAL CARE NURSE Work Phone: [facility] 01-16-2025 15:13-0400 Body mass index (BMI) [Ratio] 40.21 kg/m2 Layo Sherwin DO Work Phone: [facility] 01-16-2025 15:13-0400 Body weight 102.97 kg Layo Sherwin DO Work Phone: [facility] 01-16-2025 15:13-0400 Diastolic blood pressure 70 mm[Hg] Layo Sherwin DO Work Phone: [facility] 01-16-2025 15:13-0400 Systolic blood pressure 110 mm[Hg] Layo Sherwin DO Work Phone: [facility] 01-03-2025 10:15-0400 Body mass index (BMI) [Ratio] 39.47 kg/m2 Layo Sherwin DO Work Phone: [facility] 01-03-2025 10:15-0400 Body weight 101.06 kg Layo Sherwin DO Work Phone: [facility] 01-03-2025 10:15-0400 Diastolic blood pressure 74 mm[Hg] Layo Sherwin DO Work Phone: [facility] 01-03-2025 10:15-0400 Systolic blood pressure 118 mm[Hg] Layo Sherwin DO Work Phone: [facility] 12-19-2024 10:06-0400 Body mass index (BMI) [Ratio] 38.76 kg/m2 Layo Sherwin DO Work Phone: [facility] 12-19-2024 10:06-0400 Body weight 99.25 kg Layo Sherwin DO Work Phone: [facility] 12-19-2024 10:06-0400 Diastolic blood pressure 70 mm[Hg] Layo Sherwin DO Work Phone: [facility] 12-19-2024 10:06-0400 Systolic blood pressure 116 mm[Hg] Layo Sherwin DO Work Phone: [facility] 12-06-2024 08:33-0400 Body mass index (BMI) [Ratio] 38.09 kg/m2 Layo Sherwin DO Work Phone: [facility] 12-06-2024 08:33-0400 Body weight 97.52 kg Layo Sherwin DO Work Phone: [facility] 12-06-2024 08:33-0400 Diastolic blood pressure 70 mm[Hg] Layo Sherwin DO Work Phone: [facility] 12-06-2024 08:33-0400 Systolic blood pressure 100 mm[Hg] Layo Sherwin DO Work Phone: [facility] 11-08-2024 14:59-0400 Body mass index (BMI) [Ratio] 35.59 kg/m2 Layo Sherwin DO Work Phone: [facility] 11-08-2024 14:59-0400 Body weight 91.13 kg Layo Sherwin DO Work Phone: [facility] 11-08-2024 14:59-0400 Diastolic blood pressure 80 mm[Hg] Layo Sherwin DO Work Phone: [facility] 11-08-2024 14:59-0400 Systolic blood pressure 122 mm[Hg] Layo Sherwin DO Work Phone: [facility] 10-17-2024 13:08-0400 Body mass index (BMI) [Ratio] 35.52 kg/m2 Layo Sherwin DO Work Phone: [facility] 10-17-2024 13:08-0400 Body weight 90.95 kg Layo Sherwin DO Work Phone: [facility] 10-17-2024 13:08-0400 Diastolic blood pressure 82 mm[Hg] Layo Sherwin DO Work Phone: [facility] 10-17-2024 13:08-0400 Systolic blood pressure 126 mm[Hg] Layo Sherwin DO Work Phone: [facility] 10-11-2024 14:41-0400 Body mass index (BMI) [Ratio] 35.22 kg/m2 Layo Sherwin DO Work Phone: [facility] 10-11-2024 14:41-0400 Body weight 90.17 kg Layo Sherwin DO Work Phone: [facility] 10-11-2024 14:41-0400 Diastolic blood pressure 74 mm[Hg] Layo Sherwin DO Work Phone: [facility] 10-11-2024 14:41-0400 Systolic blood pressure 112 mm[Hg] Layo Sherwin DO Work Phone: [facility] 09-06-2024 15:31-0400 Body mass index (BMI) [Ratio] 33.17 kg/m2 Brandy Gifford PA Work Phone: [facility] 09-06-2024 15:31-0400 Body weight 84.94 kg Brandy Gifford PA Work Phone: [facility] 09-06-2024 15:31-0400 Diastolic blood pressure 82 mm[Hg] Brandy Sissy PA Work Phone: [facility] 09-06-2024 15:31-0400 Systolic blood pressure 110 mm[Hg] Brandy Sissy PA Work Phone: [facility] 08-08-2024 13:08-0400 Body mass index (BMI) [Ratio] 32.2 kg/m2 Layo Sherwin DO Work Phone: [facility] 08-08-2024 13:08-0400 Body weight 82.46 kg Layo Sherwin DO Work Phone: [facility] 08-08-2024 13:08-0400 Diastolic blood pressure 64 mm[Hg] Layo Sherwin DO Work Phone: [facility] 08-08-2024 13:08-0400 Systolic blood pressure 100 mm[Hg] Layo Sherwin DO Work Phone: [facility] 07-29-2024 09:53-0400 Body mass index (BMI) [Ratio] 31.18 kg/m2 [facility] 07-29-2024 09:53-0400 Body weight 79.83 kg [facility] 07-29-2024 09:53-0400 Diastolic blood pressure 72 mm[Hg] [facility] 07-29-2024 09:53-0400 Systolic blood pressure 118 mm[Hg] [facility] 04-06-2024 14:04-0500 Blood Pressure Location Mallory Jauregui [facility] 04-06-2024 14:04-0500 Diastolic blood pressure 74 mm[Hg] Mallory Jauregui [facility] 04-06-2024 14:04-0500 Heart rate 80 /min Mallory Jauregui [facility] 04-06-2024 14:04-0500 SaO2% (BldA) [Mass fraction] 100 % Mallory Jauregui [facility] 04-06-2024 14:04-0500 Systolic blood pressure 108 mm[Hg] Mallory Jauregui [facility] 03-22-2024 10:45-0500 Diastolic blood pressure 62 mm[Hg] Juan Chavarria MD Work Phone: [facility] 03-22-2024 10:45-0500 Heart rate 65 /min Juan Chavarria MD Work Phone: [facility] 03-22-2024 10:45-0500 Respiratory rate 17 /min Juan Chavarria MD Work Phone: [facility] 03-22-2024 10:45-0500 SaO2% (BldA) [Mass fraction] 100 % Juan Chavarria MD Work Phone: [facility] 03-22-2024 10:45-0500 Systolic blood pressure 94 mm[Hg] Juan Chavarria MD Work Phone: 6(339)616-508529 [place] [address] 03-22-2024 09:45-0500 Body temperature 97.3 [degF] Juan Chavarria MD Work Phone: 6(654)875-340329 [place] [address] 03-22-2024 08:29-0500 Body height 160 cm Juan Chavarria MD Work Phone: 8(996)005-971829 [place] [address] 03-22-2024 08:29-0500 Body mass index (BMI) [Ratio] 29.25 kg/m2 Juan Chavarria MD Work Phone: 2(052)429-046929 [place] [address] 03-22-2024 08:29-0500 Body weight 74.9 kg Juan Chavarria MD Work Phone: 6(212)128-937529 [place] [address] 02-23-2024 09:49-0400 Body temperature 97.7 [degF] Juan Chavarria MD Work Phone: 4(047)295-634929 [place] [address] 02-23-2024 09:49-0400 Diastolic blood pressure 65 mm[Hg] Juan Chavarria MD Work Phone: 7(576)437-072529 [place] [address] 02-23-2024 09:49-0400 Heart rate 94 /min Juan Chavarria MD Work Phone: 5(741)899-622129 [place] [address] 02-23-2024 09:49-0400 Respiratory rate 22 /min Juan Chavarria MD Work Phone: 3(536)019-515829 [place] [address] 02-23-2024 09:49-0400 SaO2% (BldA) [Mass fraction] 100 % Juan Chavarria MD Work Phone: 2(770)915-783429 [place] [address] 02-23-2024 09:49-0400 Systolic blood pressure 102 mm[Hg] Juan Chavarria MD Work Phone: 9(630)334-244629 [place] [address] 02-23-2024 07:27-0400 Body height 160 cm Juan Chavarria MD Work Phone: 6(266)370-875329 [place] [address] 02-23-2024 07:27-0400 Body mass index (BMI) [Ratio] 29.41 kg/m2 Juan Chavarria MD Work Phone: 4(184)511-893529 [place] [address] 02-23-2024 07:27-0400 Body weight 75.3 kg Juan Chavarria MD Work Phone: [facility] 01-28-2024 10:31-0400 Diastolic blood pressure 59 mm[Hg] Leigh Ann Tuttle MD Work Phone: [facility] 01-28-2024 10:31-0400 Heart rate 71 /min Leigh Ann Tuttle MD Work Phone: [facility] 01-28-2024 10:31-0400 Respiratory rate 20 /min Leigh Ann Tuttle MD Work Phone: [facility] 01-28-2024 10:31-0400 SaO2% (BldA) [Mass fraction] 100 % Leigh Ann Tuttle MD Work Phone: [facility] 01-28-2024 10:31-0400 Systolic blood pressure 101 mm[Hg] Leigh Ann Tuttle MD Work Phone: [facility] 01-28-2024 09:31-0400 Body temperature 98.1 [degF] Leigh Ann Tuttle MD Work Phone: [facility] 01-28-2024 08:48-0400 Body height 160 cm Leigh Ann Tuttle MD Work Phone: [facility] 01-28-2024 08:48-0400 Body mass index (BMI) [Ratio] 29.21 kg/m2 Leigh Ann Tuttle MD Work Phone: [facility] 01-28-2024 08:48-0400 Body weight 74.8 kg Leigh Ann Tuttle MD Work Phone: [facility] 01-14-2024 10:52-0400 Body mass index (BMI) [Ratio] 29.43 kg/m2 Brandy SEASR Work Phone: [facility] 01-14-2024 10:52-0400 Body weight 75.35 kg Brandy SEARS Work Phone: [facility] 01-14-2024 10:52-0400 Diastolic blood pressure 70 mm[Hg] Brandy SEARS Work Phone: [facility] 01-14-2024 10:52-0400 Systolic blood pressure 120 mm[Hg] Brandy SEARS Work Phone: [facility] 12-28-2023 10:09-0400 Body height 160 cm Juan Chavarria MD Work Phone: [facility] 12-28-2023 10:09-0400 Body mass index (BMI) [Ratio] 30.11 kg/m2 Juan Chavarria MD Work Phone: [facility] 12-28-2023 10:09-0400 Body weight 77.11 kg Juan Chavarria MD Work Phone: [facility] 12-28-2023 10:09-0400 Diastolic blood pressure 81 mm[Hg] Juan Chavarria MD Work Phone: [facility] 12-28-2023 10:09-0400 Heart rate 62 /min Juan Chavarria MD Work Phone: [facility] 12-28-2023 10:09-0400 Systolic blood pressure 119 mm[Hg] Juan Chavarria MD Work Phone: [facility] 2023 08:46-0400 Body height 160 cm Trish Thorpe REMOTE INPATIENT CODER-MAINTENANCE ENGINEER Work Phone: [facility] 2023 08:46-0400 Body mass index (BMI) [Ratio] 29.23 kg/m2 Trish Thorpe REMOTE INPATIENT CODER-MAINTENANCE ENGINEER Work Phone: [facility] 2023 08:46-0400 Body weight 74.84 kg Trish Thorpe REMOTE INPATIENT CODER-MAINTENANCE ENGINEER Work Phone: [facility] 2023 08:46-0400 Diastolic blood pressure 67 mm[Hg] Trish Thorpe REMOTE INPATIENT CODER-MAINTENANCE ENGINEER Work Phone: [facility] 2023 08:46-0400 Heart rate 72 /min Trish Thorpe REMOTE INPATIENT CODER-MAINTENANCE ENGINEER Work Phone: [facility] 2023 08:46-0400 Systolic blood pressure 122 mm[Hg] Trish Thorpe REMOTE INPATIENT CODER-MAINTENANCE ENGINEER Work Phone: [facility] 10-02-2023 11:14-0400 Blood Pressure Location Princess Rapp [facility] 10-02-2023 11:14-0400 Body temperature 98.24 [degF] Princess Rapp [facility] 10-02-2023 11:14-0400 Diastolic blood pressure 66 mm[Hg] Princess Rapp [facility] 10-02-2023 11:14-0400 Heart rate 65 /min Princess Rapp [facility] 10-02-2023 11:14-0400 SaO2% (BldA) [Mass fraction] 98 % Princess Rapp [facility] 10-02-2023 11:14-0400 Systolic blood pressure 118 mm[Hg] Princess Rapp [facility] 08-27-2023 17:44-0400 Blood Pressure Location Princess Rapp [facility] 08-27-2023 17:44-0400 Body temperature 98.06 [degF] Princess Rapp [facility] 08-27-2023 17:44-0400 Diastolic blood pressure 76 mm[Hg] Princess Rapp [facility] 08-27-2023 17:44-0400 Heart rate 85 /min Princess Rapp [facility] 08-27-2023 17:44-0400 Respiratory rate 14 /min Princess Rapp [facility] 08-27-2023 17:44-0400 SaO2% (BldA) [Mass fraction] 99 % Princess Rapp [facility] 08-27-2023 17:44-0400 Systolic blood pressure 110 mm[Hg] Princess Rapp [facility] 02-19-2023 07:41-0400 Body temperature 97.7 [degF] Princess Rapp [facility] 02-19-2023 07:41-0400 Diastolic blood pressure 70 mm[Hg] Princess Rapp [facility] 02-19-2023 07:41-0400 Heart rate 81 /min Princess Rapp [facility] 02-19-2023 07:41-0400 SaO2% (BldA) [Mass fraction] 99 % Princess Rapp [facility] 02-19-2023 07:41-0400 Systolic blood pressure 110 mm[Hg] Princess Rapp [facility] 07-24-2021 16:57-0400 Blood Pressure Location Leigh Ann Covington [facility] 07-24-2021 16:57-0400 Body temperature 97.7 [degF] Leigh Ann Covington [facility] 07-24-2021 16:57-0400 Diastolic blood pressure 68 mm[Hg] Leigh Ann Covington [facility] 07-24-2021 16:57-0400 Heart rate 88 /min Leigh Ann Covington [facility] 07-24-2021 16:57-0400 SaO2% (BldA) [Mass fraction] 99 % Leigh Ann Covington [facility] 07-24-2021 16:57-0400 Systolic blood pressure 122 mm[Hg] Leigh Ann Covington [facility] Encounters Encounter Date Encounter Type Care Provider Facility Start: 02-14-2025 End: 02-14-2025 ambulatory LAYO SHERWIN Not Available Start: 02-14-2025 End: 02-14-2025 flow sheet Layo Sherwin DO Work Phone: [facility] Comment on above: Third trimester preg rehan ([facility] 37 weeks gestation of ([facility]) Start: 02-14-2025 End: 02-14-2025 Bamboo flowsheet Layo Sherwin DO Work Phone: [facility] Start: 02-14-2025 End: 02-14-2025 Bamboo flowsheet Layo Sherwin DO Work Phone: [facility] Start: 02-07-2025 End: 02-07-2025 Bamboo flowsheet Yomaira Guerrero PEDIATRIC CRITICAL CARE NURSE Work Phone: [facility] Start: 02-07-2025 End: 02-07-2025 Bamboo flowsheet Yomaira Guerrero PEDIATRIC CRITICAL CARE NURSE Work Phone: [facility] Start: 02-07-2025 End: 02-07-2025 Clinisync Result Encounter Layo Sherwin DO Work Phone: [facility] External Department Unsolicited Start: 02-07-2025 End: 02-07-2025 flow sheet Yomaira Guerrero PEDIATRIC CRITICAL CARE NURSE Work Phone: [facility] Comment on above: Third trimester preg rehan ([facility]); 36 weeks gestation of ([facility]) Start: 02-07-2025 End: 02-07-2025 ambulatory YOMAIRA CESAR Not Available Start: 02-01-2025 End: 02-01-2025 Clinisync Result Encounter Layo Sherwin DO Work Phone: [facility] Department Unsolicited Start: 02-01-2025 End: 02-01-2025 Clinisync Result Encounter Layo Sherwin DO Work Phone: [facility] Department Unsolicited Start: 01-31-2025 End: 01-31-2025 Bamboo flowsheet Yomaira Cesar PEDIATRIC CRITICAL CARE NURSE Work Phone: [facility] Start: 01-31-2025 End: 01-31-2025 Bamboo flowsheet Yomaira Cesar PEDIATRIC CRITICAL CARE NURSE Work Phone: [facility] Start: 01-31-2025 End: 01-31-2025 ambulatory YOMAIRA CESAR Not Available Start: 01-31-2025 End: 01-31-2025 flow sheet Yomaira Cesar PEDIATRIC CRITICAL CARE NURSE Work Phone: [facility] Comment on above: Third trimester preg rehan ([facility]); 35 weeks gestation of ([facility]); Encounter for in vitro fertilization Start: [...] on above: 33 weeks gestation o f ([facility]); Third trimester ([facility]); Group B streptococcal infection; resulting from in vitro fertilization in first trimester ([facility]) Start: 01-16-2025 End: 01-16-2025 ambulatory LAYO SHERWIN [...] Comment on above: Third trimester preg rehan ([facility]); 31 weeks gestation of ([facility]); resulting from in vitro fertilization in third trimester ([facility]) Start: 01-03-2025 End: 01-03-2025 ambulatory LAYO SHERWIN Not Available Start: 12-19-2024 End: 12-19-2024 flow sheet Layo Sherwin DO Work Phone: [facility] Comment on above: 29 weeks gestation o f ([facility]); Third trimester ([facility]); Leukocytes in urine; Other microscopic hematuria [...] on above: 27 weeks gestation o f ([facility]); Second trimester ([facility]) Start: 12-06-2024 End: 12-06-2024 ambulatory LAYO SHERWIN Not Available Start: 11-26-2024 End: 11-26-2024 Clinisync Result Encounter Layo Sherwin DO Work Phone: [facility] External Department Unsolicited Start: 11-26-2024 End: 11-26-2024 Clinisync Result Encounter Layo Sherwin DO Work Phone: [facility] Department Unsolicited Start: 11-08-2024 End: 11-08-2024 flow sheet Layo Sherwin DO Work Phone: [facility] Comment on above: Second trimester pre gnancy ([facility]); 26 weeks gestation of ([facility]); Diabetes mellitus screening Start: 11-08-2024 End: [...] pain without sciatica (Primary Dx); Second trimester ([facility]); 20 weeks gestation of ([facility]) Start: 10-17-2024 End: 10-17-2024 ambulatory LAYO [...] 1 Valeria Hay Comment on above: ([facility]) Start: 10-07-2024 End: 10-07-2024 ambulatory [facility] Start: 09-22-2024 End: 09-22-2024 ambulatory BRANDY [...] End: 07-11-2024 Patient encounter procedure Donya Abernathy REMOTE INPATIENT CODER-MAINTENANCE ENGINEER Work Phone: Valeria Hay Comment on above: Fertility testing (P rimary Dx); Encounter to determine viability of , single or unspecified fetus Start: 07-11-2024 End: 07-11-2024 ambulatory DONYA ABERNATHY [facility] Start: 06-30-2024 End: 06-30-2024 ambulatory [facility] Start: 06-23-2024 End: 06-23-2024 ambulatory [facility] Start: 06-23-2024 End: 06-23-2024 ambulatory [facility] Start: 06-13-2024 End: 06-13-2024 Subsequent hospital visit by physician Juan Chavarria MD Work Phone: Valeria Hay Comment on above: Encounter for assist ed reproductive fertility cycle Start: 06-13-2024 End: 06-13-2024 ambulatory JUAN Zamora [facility] Start: 06-07-2024 End: 06-07-2024 ambulatory [facility] Start: 06-06-2024 End: 06-06-2024 [facility] Start: 06-06-2024 End: 06-06-2024 Professional / ancillary services management Mac [id number] Kelsy Ultrasound [facility] Comment on above: Female infertility Start: 06-06-2024 End: 06-06-2024 ambulatory [facility] Start: 05-23-2024 End: 05-23-2024 ambulatory [facility] Start: 04-06-2024 ambulatory Mallory Jauregui Faci lity:[facility] Start: 04-06-2024 End: 04-06-2024 Patient encounter procedure Mallory Jauregui [facility] Start: 03-22-2024 End: 03-22-2024 Subsequent hospital visit by physician Juan Chavarria MD Work Phone: Valeria Hay Comment on above: Encounter for assist ed reproductive fertility cycle Start: 03-22-2024 End: 03-22-2024 ambulatory JUAN Zamora [facility] Start: 03-21-2024 End: 03-21-2024 ambulatory [facility] Start: 03-20-2024 End: 03-20-2024 Professional / ancillary services management Mac [id number] Kelsy Ultrasound Valeria Hay Comment on above: Female infertility Start: 03-20-2024 End: 03-20-2024 ambulatory [facility] Start: 03-19-2024 End: 03-19-2024 Professional / ancillary services management Mac [id number] Kelsy Ultrasound Valeria Hay Comment on above: Female infertility Start: 03-19-2024 End: 03-19-2024 ambulatory [facility] Start: 03-17-2024 End: 03-17-2024 [facility] Start: 03-17-2024 End: 03-17-2024 Professional / ancillary services management Mac [id number] Kelsy Ultrasound Valeria Hay Comment on above: Female infertility Start: 03-17-2024 End: 03-17-2024 ambulatory DONYA Pickard [facility] Start: 03-15-2024 End: 03-15-2024 ambulatory [facility] Start: 03-15-2024 End: 03-15-2024 ambulatory DONYA Pickard [facility] Start: 03-15-2024 End: 03-15-2024 Professional / ancillary services management Mac [id number] Kelsy Ultrasound Valeria Hay Comment on above: Female infertility Start: 03-09-2024 End: 03-09-2024 [facility] Start: 03-09-2024 End: 03-09-2024 Patient encounter status [facility] [place] [place] Start: 03-09-2024 End: 03-09-2024 Professional / ancillary services management Mac [id number] Kelsy Ultrasound Valeria Hay Comment on above: Female infertility; Pre-procedure lab exam Start: 03-09-2024 End: 03-09-2024 ambulatory AMERICA Del Real [facility] Start: 02-23-2024 End: 02-23-2024 Subsequent hospital visit by physician Juan Chavarria MD Work Phone: Valeria Hay Comment on above: Encounter for assist ed reproductive fertility cycle Start: 02-23-2024 End: 02-23-2024 ambulatory JUAN CHAVARRIA [facility] Start: 02-22-2024 End: 02-22-2024 ambulatory [facility] Start: 02-21-2024 End: 02-21-2024 Professional / ancillary services management Mac [id number] Kelsy Ultrasound Valeria Hay Comment on above: Female infertility Start: 02-21-2024 End: 02-21-2024 ambulatory AMERICA Del Real [facility] Start: 02-20-2024 End: 02-20-2024 ambulatory [facility] Start: 02-20-2024 End: 02-20-2024 Professional / ancillary services management Mac [id number] Kelsy Ultrasound Valeria Hay Comment on above: Female infertility Start: 02-20-2024 End: 02-20-[address] [facility] Start: 02-18-2024 End: 02-18-2024 ambulatory [facility] Start: 02-18-2024 End: 02-18-2024 Professional / ancillary services management Mac [id number] Kelsy Ultrasound Valeria Hay Comment on above: Female infertility Start: 02-18-2024 End: 02-18-2024 [facility] Start: 02-16-2024 End: 02-16-2024 Professional / ancillary services management Mac [id number] Kelsy Ultrasound [facility] Comment on above: Female infertility Start: 02-16-2024 End: 02-16-[address] [facility] Start: 02-09-2024 End: 02-09-2024 Patient encounter status [facility] [place] [place] Start: 02-09-2024 End: 02-09-2024 Professional / ancillary services management Mac [id number] Kelsy Ultrasound [facility] [place] Comment on above: Pre-procedure lab ex am; Female infertility Start: 02-09-2024 End: 02-09-[address] [facility] Start: 02-02-2024 End: 02-02-2024 ambulatory [facility] Start: 01-28-2024 End: 01-28-2024 Subsequent hospital visit by physician Leigh Ann Tuttle MD Work Phone: Valeria Hay Comment on above: Endometrial polyp Start: 01-28-2024 End: 01-28-2024 ambulatory LEIGH ANN TUTTLE [facility] Start: 01-25-2024 End: 01-25-2024 ambulatory [facility] Start: 01-25-2024 End: 01-25-2024 Encounter for preprocedural laboratory examination [facility] Start: 01-14-2024 End: 01-14-2024 Bamboo flowsheet [...] encounter procedure Juan Chavarria MD Work Phone: [facility] Comment on above: Fertility testing [Z 31.41] (Primary Dx); 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 [Z31.81, N97.8] Start: 12-28-2023 End: 12-28-2023 ambulatory JUAN CHAVARRIA [facility] Start: 12-25-2023 End: 12-25-2023 ambulatory AFUA JULIAN [facility] Start: 2023 End: 2023 ambulatory [facility] Start: 2023 End: 2023 Patient encounter procedure Trish Thorpe REMOTE INPATIENT CODER-MAINTENANCE ENGINEER Work Phone: [facility] Comment on above: Encounter for screen ing for other viral diseases (Primary Dx); Encounter for Rh blood typing; Screening for STDs (sexually transmitted diseases); Genetic screening; Fertility testing; Female infertility associated with male factors Start: 2023 End: 2023 Patient encounter status Trish Thorpe REMOTE INPATIENT CODER-MAINTENANCE ENGINEER Work Phone: [facility] Work Phone: Start: 2023 End: 2023 ambulatory TRISH THORPE [facility] Start: 2023 End: 2023 Encounter for blood typing TRISH THORPE [facility] Start: 10-21-2023 ambulatory Pirncess Yin ity:[facility] Start: 10-02-2023 End: 10-02-2023 ambulatory Princess Rapp Facility:[facility] Start: 10-02-2023 End: 10-02-2023 Patient encounter procedure Princess Rapp [facility] Start: 08-27-2023 End: 08-27-2023 ambulatory Princess Rapp Facility:[facility] Start: 08-27-2023 End: 08-27-2023 Patient encounter procedure Princess Rapp [facility] Start: 03-25-2023 End: 03-25-2023 Patient encounter procedure Princess Rapp [facility] Start: 02-19-2023 End: 02-19-2023 Patient encounter procedure Princess Rapp [facility] Start: 07-26-2022 End: 07-27-[address] LAYO COURTNEY . Facility:[facility] Start: 07-23-2022 End: 07-23-[address] LAYO COURTNEY . Facility:[facility] Start: 07-24-2021 End: 07-24-2021 Patient encounter procedure Leigh Ann Covington [facility] Procedures Date Procedure Procedure Detail Performing Clinician Start: 02-14-2025 Urnls dip stick/tabl et rgnt non-auto w/o micrscp Layo Sherwin DO Work Phone: Start: 02-07-2025 US OB BPP W NON-STRESS Layo Sherwin DO Work Phone: Start: 02-07-2025 Urnls dip stick/tabl et rgnt non-auto w/o micrscp Yomaira Cesar PEDIATRIC CRITICAL CARE NURSE Work Phone: Start: 02-01-2025 US OB BPP W NON-STRESS Layo Sherwin DO Work Phone: Start: 02-01-2025 US OB GROWTH Layo Fazi o DO Work Phone: Start: 01-31-2025 Urnls dip stick/tabl et rgnt non-auto w/o micrscp Yomaira Cesar PEDIATRIC CRITICAL CARE NURSE Work Phone: Start: 01-25-2025 US OB BPP [...] ic image dcmtn limited/f/u Donya Pickard Josemanuel REMOTE INPATIENT CODER-MAINTENANCE ENGINEER Work Phone: Start: 03-22-2024 Follicle puncture oo cyte retrieval any method Donya Pickard Josemanuel REMOTE INPATIENT CODER-MAINTENANCE ENGINEER Work Phone: Start: 03-20-2024 Us pelvic nonobstetr ic image dcmtn limited/f/u Donya Pickard Josemanuel REMOTE INPATIENT CODER-MAINTENANCE ENGINEER Work Phone: Start: 03-20-2024 Assay of estradiol America Gt Dwight REMOTE INPATIENT CODER-MAINTENANCE ENGINEER Work Phone: Start: 03-19-2024 Us pelvic nonobstetr ic image dcmtn limited/f/u Donya Abernathy REMOTE INPATIENT CODER-MAINTENANCE ENGINEER Work Phone: Start: 03-17-2024 Us pelvic nonobstetr ic image dcmtn limited/f/u Donya Abernathy REMOTE INPATIENT CODER-MAINTENANCE ENGINEER Work Phone: Start: 03-17-2024 Assay of estradiol Donya Pickard Josemanuel REMOTE INPATIENT CODER-MAINTENANCE ENGINEER Work Phone: Start: 03-15-2024 Us pelvic nonobstetr ic image dcmtn limited/f/u Donya Pickard Josemanuel REMOTE INPATIENT CODER-MAINTENANCE ENGINEER Work Phone: Start: 03-15-2024 Assay of estradiol Donya Pickard Josemanuel REMOTE INPATIENT CODER-MAINTENANCE ENGINEER Work Phone: Start: 03-09-2024 Us pelvic nonobstetr ic image dcmtn limited/f/u America R Dwight REMOTE INPATIENT CODER-MAINTENANCE ENGINEER Work Phone: Start: 03-09-2024 Blood count hematocrit Donya Pickard Josemanuel REMOTE INPATIENT CODER-MAINTENANCE ENGINEER Work Phone: Start: 02-23-2024 Follicle puncture oo cyte retrieval any method Beth Warren MD Work Phone: Start: 02-21-2024 Us pelvic nonobstetr ic image dcmtn limited/f/u America R Dwight REMOTE INPATIENT CODER-MAINTENANCE ENGINEER Work Phone: Start: 02-21-2024 Gonadotropin luteini zing hormone Beti Warren MD Work Phone: Start: 02-18-2024 Us pelvic nonobstetr ic image dcmtn limited/f/u America R Dwight REMOTE INPATIENT CODER-MAINTENANCE ENGINEER Work Phone: Start: 02-18-2024 Assay of estradiol America R Dwight REMOTE INPATIENT CODER-MAINTENANCE ENGINEER Work Phone: Start: 02-16-2024 Assay of estradiol America R Dwight REMOTE INPATIENT CODER-MAINTENANCE ENGINEER Work Phone: Start: 02-09-2024 Blood count hematocrit America R Dwight REMOTE INPATIENT CODER-MAINTENANCE ENGINEER Work Phone: Start: 02-09-2024 Us pelvic nonobstetr ic image dcmtn limited/f/u America R Dwight REMOTE INPATIENT CODER-MAINTENANCE ENGINEER Work Phone: Start: 01-28-2024 Hysteroscopy bx endometrium&/polypc [...] knee anterior cruciate ligament allograft reconstruction with rioz-[id number]-[id number], debridment medial meniscus tear, patellofemoral chondroplasty-Grade I-II Leigh Ann Covington Tonsillectomy Leigh Ann Covington tubes in the ears Leigh Ann bartholomew Plan of Treatment Date Care Activity Detail Author Start: 2072 RSV High Risk: (Elderly (60+) or Population) (1 - 1-dose 75+ series) RSV High Risk: (Elderly (60+) or Population) (1 - 1-dose 75+ series) [facility] Start: 12-12-2047 Zoster Vaccines (1 of 2) Zoster Vaccines (1 of 2) [facility] Start: 01-13-2027 Screening for malignant neoplasm of cervix [facility] Start: 02-14-2025 End: 02-14-2025 Patient encounter procedure 02/14/2025 2:30 PM EDT Routine SHIRA ZACARIAS [address] [place] [address] Layo Courtney DO [address] [place] [address] SHIRA ZACARIAS Start: 02-07-2025 End: 02-07-2025 Patient encounter procedure NOMKenisha ZACARIAS Comment on above: Arrived Start: 01-31-2025 End: 01-31-2026 CULTURE, GROUP B STREP WITH SUSCEPTIBLITY CULTURE, GROUP B STREP WITH SUSCEPTIBLITY Lab Routine Third [facility]) Expected: 01/31/2025, Expires: 01/31/2026 [facility] Work Phone: Comment on above: Expected: 01/31/2025, Expires: Start: 01-31-2025 End: 06-02-2025 US for US OB follow up transabdominal approach Imaging Routine Encounter for in vitro fertilization Expected: 01/31/2025, Expires: 06/02/2025 [facility] Comment on above: Expected: 01/31/2025, Expires: Start: 01-31-2025 End: 01-31-2025 Patient encounter procedure 01/31/2025 1:50 PM EDT Routine [facility] [address] [place] [phone] Yomaira Guerrero, PEDIATRIC CRITICAL CARE NURSE [address] [place] [phone] [facility] Start: 01-30-2025 End: 01-30-2025 Patient encounter procedure 01/30/2025 3:50 PM EDT Routine [facility] [address] [place] [address] Yomaira Guerrero, PEDIATRIC CRITICAL CARE NURSE [address] [place] [address] [facility] [place] [facility] Start: 01-16-2025 End: 01-16-2025 Patient encounter procedure SHIRA Naidu Comment on above: Arrived Start: 01-03-2025 End: 07-03-2025 US biophysical profile w non stress test US biophysical profile w non stress test Imaging Routine resulting from in vitro fertilization in third trimester ([facility] Expected: 01/03/2025 (Approximate), Expires: 07/03/2025 [facility] [...] PM EDT Routine [facility] [address] [place] [phone] Layo Courtney, DO [address] [place] [address] [facility] Start: 11-08-2024 End: 11-08-2025 [...] mellitus screening Expected: 11/08/2024 (Approximate), Expires: 11/08/2025 [facility] Comment on above: Expected: 11/08/2024 (Approximate), Expi res: 11/08/2025 Start: 10-17-2024 End: 10-17-2024 Patient encounter procedure 10/17/2024 1:00 PM EDT Routine [facility] [address] [facility] [place] [phone] Layo Courtney, DO [address] [place], [place] [id number] Arrived [facility] Comment on above: [...] Routine Pruritus Expected: 10/11/2024 (Approximate), Expires: 10/11/2025 [facility] Work Phone: Comment on above: Expected: 10/11/2024 (Approximate), Expi res: 10/11/2025 Start: 10-11-2024 End: 10-11-2025 Thyrotropin [Units/volume] in Serum or Plasma TSH Lab Routine Pruritus Expected: 10/11/2024 (Approximate), Expires: 10/11/2025 [facility] Comment on above: Expected: 10/11/2024 [...] for anatomic survey Expected: 09/06/2024, Expires: 12/07/2024 [facility] Comment on above: Expected: 09/06/2024, Expires: Start: 08-08-2024 End: 08-08-2024 Patient encounter procedure [facility] Comment on above: Arrived Start: 07-29-2024 End: 07-29-2025 ABO/Rh ABO/Rh Lab Routine Missed menses , unspecified gestational age Expected: 07/29/2024 (Approximate), Expires: 07/29/2025 [facility] Comment on above: Expected: 07/29/2024 (Approximate), Expi res: 07/29/2025 Start: 07-29-2024 End: 07-29-2025 Blood type and Indirect antibody screen panel - Blood Type and screen Lab Routine Missed menses , unspecified gestational age Expected: 07/29/2024 (Approximate), Expires: 07/29/2025 [facility] Work Phone: Comment on above: Expected: 07/29/2024 (Approximate), Expi res: 07/29/2025 Start: 07-29-2024 End: 07-29-2025 Drugs of abuse panel - Urine by Screen method Rapid drug screen, urine Lab Routine , unspecified gestational age Encounter for supervision of normal first in first trimester Expected: 07/29/2024 (Approximate), Expires: 07/29/2025 [facility] Comment on above: Expected: 07/29/2024 (Approximate), Expi res: 07/29/2025 Start: 07-11-2024 End: 07-11-2025 Progesterone [Mass/volume] in Serum or Plasma Progesterone Lab Routine Fertility testing Expected: 07/11/2024 (Approximate), Expires: 07/11/2025 [facility] Service Area Work Phone: Comment on above: Expected: 07/11/2024 (Approximate), Expi res: 07/11/2025 Start: 06-23-2024 Orders Only 06/23/2024 Orders Only Shaw Darlinfadi Satnam [address] [place] [phone] Ira Lopez RN Encounter for test, result unknown Valeria Chanel Satnam Comment on above: Encounter for test, result unk nown Start: 03-20-2024 End: 03-20-2025 Lutropin [Units/volume] in Serum or Plasma Luteinizing Hormone Lab STAT Female infertility Expected: 03/20/2024 (Approximate), Expires: 03/20/2025 [facility] Work Phone: Comment on above: Expected: 03/20/2024 (Approximate), Expi res: 03/20/2025 Start: 03-20-2024 End: 03-20-2025 Progesterone [Mass/volume] in Serum or Plasma Progesterone Lab STAT Female infertility Expected: 03/20/2024 (Approximate), Expires: 03/20/2025 [facility] Service Area Work Phone: Comment on above: Expected: 03/20/2024 (Approximate), Expi res: 03/20/2025 Start: 03-20-2024 End: 03-20-2024 Professional / ancillary services management 03/20/2024 8:00 AM EST Ancillary Procedure Valeria Chanel Troyon [address] [place] [address] Shaw Darío Hay Start: 03-19-2024 End: 03-19-2024 Professional / ancillary services management 03/19/2024 8:30 AM EST Ancillary Procedure Shaw Risfadi Simmonson [address] [place] [address] Valeria Hay Start: 03-17-2024 End: 03-17-2025 Estradiol (E2) [Mass/volume] in Serum or Plasma Estradiol Lab STAT Female infertility Expected: 03/17/2024 (Approximate), Expires: 03/17/2025 [facility] Service Area Work Phone: Comment on above: Expected: 03/17/2024 (Approximate), Expi res: 03/17/2025 Start: 03-17-2024 End: 03-17-2025 Progesterone [Mass/volume] in Serum or Plasma [facility] Work Phone: Comment on above: Expected: 03/17/2024 (Approximate), Expi res: 03/17/2025 Start: 03-17-2024 End: 03-17-2024 Professional / ancillary services management 03/17/2024 6:45 AM EST Ancillary Procedure Valeria Simmonson [address] [place] [phone] Valeria Simmonson Start: 03-15-2024 End: 03-15-2024 Professional / ancillary services management 03/15/2024 6:45 AM EST Ancillary Procedure Valeria Simmonson [address] [place], [place] [phone] [facility] Start: 03-09-2024 End: 03-09-2024 Professional / ancillary services management 03/09/2024 7:15 AM EST Ancillary Procedure Valeria Simmonson [address] [place] [address] [facility] Start: 02-23-2024 End: 02-23-2024 Patient encounter procedure 02/23/2024 8:30 AM EDT Appointment Valeria Simmonson [address] [place], [place] [phone] Juan Chavraria MD [address] [place] [address] [place] [address] Manuela sera Department of Anesthesiology and [place] [address] Valeria Simmonson Start: 02-21-2024 End: 02-21-2024 Professional / ancillary services management 02/21/2024 8:30 AM EDT Ancillary Procedure Valeria Simmonson [address] [place] [phone] Valeria Chanel Satnam Start: 02-20-2024 End: 02-17-2025 Estradiol (E2) [Mass/volume] in Serum or Plasma Estradiol Lab STAT Female infertility Expected: 02/20/2024 (Approximate), Expires: 02/17/2025 [facility] Service Area Work Phone: Comment on above: Expected: 02/20/2024 (Approximate), Expi res: 02/17/2025 Start: 02-20-2024 End: 02-17-2025 Progesterone [Mass/volume] in Serum or Plasma Progesterone Lab STAT Female infertility Expected: 02/20/2024 (Approximate), Expires: 02/17/2025 [facility] Work Phone: Comment on above: Expected: 02/20/2024 (Approximate), Expi res: 02/17/2025 Start: 02-20-2024 End: 02-20-2024 Professional / ancillary services management 02/20/2024 8:30 AM EDT Ancillary Procedure Shaw Risfadi Hay [address] [place] [address] Valeria Hay Start: 02-18-2024 End: 02-18-2024 Professional / ancillary services management 02/18/2024 7:45 AM EDT Ancillary Procedure Shaw Risfadi Simmonson [address] [place] [address] Shaw Darío Hay Start: 02-16-2024 End: 02-16-2024 Professional / ancillary services management 02/16/2024 7:15 AM EDT Ancillary Procedure [facility] [address] [place] [address] [facility] Start: 02-09-2024 End: 02-09-2024 Professional / ancillary services management 02/09/2024 7:15 AM EDT Ancillary Procedure [facility] [address] [place] [address] [facility] Start: 01-14-2024 End: 01-14-2024 Patient encounter procedure 01/14/2024 11:00 AM EDT Office Visit [facility] [address] [place] [address] Brandy Sheehan PA [address] [place] [address] Arrived [facility] Comment on above: Arrived Start: 01-03-2024 COVID-19 Vaccine () COVID-19 Vaccine ( season) [facility] Start: 01-03-2024 COVID-19 Vaccine () COVID-19 Vaccine () [facility] Start: 01-03-2024 Influenza vaccination Influenza Vaccine (#1) [facility] Start: 12-25-2023 End: 12-25-2023 Telemedicine consultation with patient 12/25/2023 9:00 AM EDT Telemedicine Clinical Support [facility] [address] [facility] [address] [place] [address] Afua Julian I, [facility] [address] [facility] [place] [address] [facility] Start: 2023 End: 12-10-2024 Chlamydia trachomatis and Neisseria gonorrhoeae DNA [Identifier] in Unspecified specimen by EDELMIRA with probe detection [facility] Work Phone: Comment on above: Expected: 2023 (Approximate), Expi res: 12/10/2024 Start: 2023 End: 12-10-2024 Hepatitis B virus surface Ag [Presence] in Serum or Plasma by Immunoassay [facility] Work Phone: Comment on above: Expected: 2023 (Approximate), Expi res: 12/10/2024 Start: 2023 End: 12-10-2024 Hepatitis C virus Ab [Presence] in Serum [facility] Work Phone: Comment on above: Expected: 2023 (Approximate), Expi res: 12/10/2024 Start: 2023 End: 12-10-2024 HIV 1+2 Ab+HIV1 p24 Ag [Presence] in Serum or Plasma by Immunoassay [facility] Work Phone: Comment on above: Expected: 2023 (Approximate), Expi res: 12/10/2024 Start: 2023 End: 12-10-2024 Rubella virus IgG Ab [Units/volume] in Serum [facility] Service Area Work Phone: Comment on above: Expected: 2023 (Approximate), Expi res: 12/10/2024 Start: 2023 End: 12-10-2024 Treponema pallidum IgG+IgM Ab [Presence] in Serum by Immunoassay [facility] Work Phone: Comment on above: Expected: 2023 (Approximate), Expi res: 12/10/2024 Start: 2023 End: 12-10-2024 Varicella zoster virus IgG Ab [Presence] in Serum by Immunoassay [facility] Work Phone: Comment on above: Expected: 2023 (Approximate), Expi res: 12/10/2024 Start: 01-02-2023 COVID-19 Vaccine ( season) COVID-19 Vaccine ( season) [facility] Start: 12-21-2019 DTaP/Tdap/Td Vaccines (2 - Td or Tdap) DTaP/Tdap/Td Vaccines (2 - Td or Tdap) [facility] Start: 2018 Screening for malignant neoplasm of cervix [facility] Start: 2016 Hepatitis B Vaccines (1 of 3 - 19+ 3-dose series) Hepatitis B Vaccines (1 of 3 - 19+ 3-dose series) [facility] Start: 12-12-2015 Hepatitis C screening Hepatitis C Screening [facility] Start: 2012 HPV Vaccines (1 - 3-dose series) HPV Vaccines (1 - 3-dose series) [facility] Start: 03-14-2010 Varicella vaccination Varicella Vaccines (2 of 2 - 2-dose childhood series) [facility] Start: 01-17-2010 MMR Vaccines (1 of 1 - Standard series) MMR Vaccines (1 of 1 - Standard series) [facility] Start: 1997 HIV screening HIV Screening [facility] Start: 1997 Lipid panel Lipid Panel [facility] Start: 1997 Yearly Adult Physical Yearly Adult Physical [facility] Bacteria identified in Urine by Culture Urine culture Microbiology Routine Missed menses Ordered: 07/29/2024 [facility] Comment on above: Ordered: 07/29/2024 Bacteria identified in Urine by Culture Urine culture Microbiology Routine Leukocytes in urine Other microscopic hematuria Ordered: 12/19/2024 [facility] Work Phone: Comment on above: Ordered: 12/19/2024 CBC W Auto Different ial panel - Blood CBC and differential Lab Routine Missed menses , unspecified gestational age Ordered: 07/29/2024 [facility] Comment on above: Ordered: 07/29/2024 CHLAMYDIA TRACHOMATI S (GENITO/STI) CHLAMYDIA TRACHOMATIS (GENITO/STI) Lab Routine STD exposure Ordered: 09/06/2024 [facility] Comment on above: Ordered: 09/06/2024 End: 02-23-2024 Choriogonadotropin ( test) [Presence] in Urine POCT , urine manually resulted Point of Care Testing Routine Once (Lab) for 1 Occurrences starting 02/23/2024 until 02/23/2024 [facility] Work Phone: Comment on above: Once (Lab) for 1 Occurrences starting until 02/23/2024 End: 03-22-2024 Choriogonadotropin ( test) [Presence] in Urine POCT , urine manually resulted Point of Care Testing Routine Once (Lab) for 1 Occurrences starting 03/22/2024 until 03/22/2024 [facility] Work Phone: Comment on above: Once (Lab) for 1 Occurrences starting until 03/22/2024 End: 02-10-2025 Choriogonadotropin ( test) [Presence] in Urine POCT , urine manually resulted Point of Care Testing Routine Once (Lab) for 1 Occurrences starting 06/13/2024 until 06/13/2024 [facility] Work Phone: Comment on above: Once (Lab) for 1 Occurrences starting until 06/13/2024 Cytology Cervical or vaginal smear or scraping study Pap Smear Pathology and Cytology Routine Well woman exam with routine gynecological exam Ordered: 01/14/2024 [facility] Work Phone: Comment on above: Ordered: 01/14/2024 Hemoglobin A1c/Hemoglobin.total in Blood Hemoglobin A1c Lab Routine Missed menses , unspecified gestational age Ordered: 07/29/2024 [facility] Comment on above: Ordered: 07/29/2024 Hepatitis B virus abrams rface Ag [Presence] in Serum or Plasma by Immunoassay Hepatitis B surface antigen Lab Routine Missed menses , unspecified gestational age Ordered: 07/29/2024 [facility] Comment on above: Ordered: 07/29/2024 Hepatitis C virus Ab [Presence] in Serum or Plasma by Immunoassay Hepatitis C antibody Lab Routine Missed menses , unspecified gestational age Ordered: 07/29/2024 [facility] Comment on above: Ordered: 07/29/2024 HIV-1/HIV-2 antigen/antibody combination immunoassay HIV-1 and HIV-2 antibodies Lab Routine Missed menses , unspecified gestational age Ordered: 07/29/2024 [facility] Comment on above: Ordered: 07/29/2024 Neisseria gonorrhoea e DNA [Presence] in Unspecified specimen by EDELMIRA with probe detection Neisseria gonorrhea DNA probe, direct Lab Routine STD exposure Ordered: 09/06/2024 [facility] Comment on above: Ordered: 09/06/2024 Reagin Ab [Presence] in Serum by RPR RPR Lab Routine Missed menses , unspecified gestational age Ordered: 07/29/2024 [facility] Comment on above: Ordered: 07/29/2024 KELSY US Pelvis Limite d Follicles - Follicle Studies Performed KELSY US Pelvis Limited Follicles - Follicle Studies Performed Imaging Routine Female infertility 02/16/2024 7:17 AM EDT [facility] Work Phone: KELSY US Pelvis Limite d Follicles - Follicle Studies Performed KELSY US Pelvis Limited Follicles - Follicle Studies Performed Imaging Routine Female infertility 02/20/2024 9:06 AM EDT [facility] Work Phone: Rubella antibody, IgG Rubella an tibody, IgG Lab Routine Missed menses , unspecified gestational age Ordered: 07/29/2024 [facility] Comment on above: Ordered: 07/29/2024 SURESWAB(R) ADVANCED VAGINITIS PLUS, TMA SURESWAB(R) ADVANCED VAGINITIS PLUS, TMA Pathology and Cytology Routine STD exposure Ordered: 09/06/2024 [facility] Work Phone: Comment on above: Ordered: 09/06/2024 End: 01-28-2024 Surgical pathology study [facility] Work Phone: Comment on above: Once (Lab) for 1 Occurrences starting until 01/28/2024, 1 completed Once (Lab) for 1 Occ urrences starting 01/28/2024 until 01/28/2024 Immunizations Immunization Date Immunization Notes Care Provider Fa cility 12-20-2009 meningococcal ACWY vaccine, unspecified formulation Princess Rapp [facility] 12-20-2009 tetanus toxoid, reduced diphtheria toxoid, and acellular pertussis vaccine, adsorbed Princess Rapp [facility] 12-20-2009 varicella virus vaccine Princess Rapp [facility] NEGATED: Highlighted row has not occurred!04-06-2024 influenza virus vaccine, unspecified formulation Mallory Jauregui [facility] NEGATED: Highlighted row has not occurred!06-26-2021 influenza virus vaccine, unspecified formulation Leigh Ann Covington [facility] NEGATED: Highlighted row has not occurred!06-26-2021 SARS-CoV-2 (COVID-19) Ad26 vaccine, recombinant Leigh Ann Covington [facility] NEGATED: Highlighted row has not occurred!01-29-2021 influenza virus vaccine, unspecified formulation Leigh Ann Covington [facility] NEGATED: Highlighted row has not occurred!01-29-2021 SARS-CoV-2 (COVID-19) Ad26 vaccine, recombinant Leigh Annjuan Covington [facility] NEGATED: Highlighted row has not occurred!05-03-2019 influenza virus vaccine, live, attenuated, for intranasal use Leigh Ann Covington [facility] NEGATED: Highlighted row has not occurred!09-30-2018 influenza virus vaccine, unspecified formulation Leigh Ann Covington [facility] Payers Date Payer Category Payer Managed Care (Private) 1.2.8 [id number] 2022 Private Health Insurance [employer] [id number] 2022 Unknown [id number]. 1.13.647.2. 7.3.827717.315 2022 Unknown [id number] 1997 Unknown [id number] 2.16840.1.979652.3.579.2. 593 1997 Unknown [id number] 2.16840.1.738428.3.579.2. 593 1997 Unknown [id number] 2.840.1.010401.3.579.2. 727 1997 Unknown [id number] 2.16840.1.464380.3.579.2. 727 1997 Unknown [id number] 2.840.1.190140.3.579.2. 727 1997 Unknown [id number] 2.840.1.104470.3.579.2. 727 1997 Unknown [id number] 2.1.662521.3.579.2. 124 1997 Unknown [id number] 2.840.1.220422.3.579.2. 124 1997 Unknown [id number] 2.840.1.429515.3.579.2. 124 1997 Unknown [id number] 2.840.1.001709.3.579.2. 124 1997 Unknown [id number] 284.1.366883.3.579.2. 124 1997 Unknown [id number] 2.840.1.498000.3.579.2. 124 1997 Unknown [id number] 2.16840.1.159581.3.579.2. 124 1997 Unknown [id number] 2.16840.1.867610.3.579.2. 124 1997 Unknown [id number] 2.840.1.220161.3.579.2. 124 1997 Unknown [id number] 2.16.840.1.455694.3.579.2. 1244 1997 Unknown [id number] 2.16.840.1.198136.3.579.2. 1244 1997 Unknown [id number] 2.16.840.1.920639.3.579.2. 1244 1997 Unknown [id number] 2.16.840.1.460206.3.579.2. 1244 1997 Unknown [id number] 2.16.840.1.490081.3.579.2. 1244 1997 Unknown [id number] 2.16.840.1.616798.3.579.2. 1244 1997 Unknown [id number] 2.16.840.1.186343.3.579.2. 1244 1997 Unknown [id number] 2.16840.1.572516.3.579.2. 1244 1997 Unknown [id number] 2.16840.1.558020.3.579.2. 1244 1997 Unknown [id number] 2.16840.1.429914.3.579.2. 1244 1997 Unknown [id number] 2.16.840.1.614401.3.579.2. 1244 1997 Unknown [id number] 2.16.840.1.551487.3.579.2. 1244 1997 Unknown [id number] 2.16.840.1.178383.3.579.2. 1244 1997 Unknown [id number] 2.16.840.1.695373.3.579.2. 1244 1997 Unknown [id number] 2.16.840.1.208409.3.579.2. 1244 1997 Unknown [id number] 2.16.840.1.460330.3.579.2. 1244 1997 Unknown [id number] 2.16.840.1.061142.3.579.2. 1244 1997 Unknown [id number] 2.16.840.1.469948.3.579.2. 1244 1997 Unknown [id number] 2.16.840.1.567741.3.579.2. 1244 1997 Unknown [id number] 2.840.1.781394.3.579.2. 1244 1997 Unknown [id number] 2.840.1.222984.3.579.2. 1244 1997 Unknown [id number] 2.840.1.690167.3.579.2. 1244 1997 Unknown [id number] 2.840.1.754274.3.579.2. 1244 1997 Unknown [id number] 2.840.1.905124.3.579.2. 1244 1997 Unknown [id number] 2.840.1.213126.3.579.2. 1244 1997 Unknown [id number] 2.840.1.282071.3.579.2. 1244 1997 Unknown [id number] 2.840.1.099664.3.579.2. 1244 1997 Unknown [id number] 2.840.1.450278.3.579.2. 1244 1997 Unknown [id number] 2.840.1.241870.3.579.2. 1244 1997 Unknown [id number] 2.840.1.505499.3.579.2. 1244 1997 Unknown [id number] 2.840.1.907402.3.579.2. 1244 1997 Unknown [id number] 2.16840.1.189353.3.579.2. 1259 1997 Unknown [id number] 2.16.840.1.759128.3.579.2. 1259 1997 Unknown [id number] 2.16.840.1.690524.3.579.2. 1259 1997 Unknown [id number] 2.16.840.1.074956.3.579.2. 9 1997 Unknown [id number] 2.16.840.1.337108.3.579.2. 1259 1997 Unknown [id number] 2.16.840.1.160613.3.579.2. 9 1997 Unknown [id number] 2.16.840.1.234071.3.579.2. 9 1997 Unknown [id number] 2.16.840.1.548606.3.579.2. 1258 1997 Unknown [id number] 2.16.840.1.001616.3.579.2. 9 1997 Unknown [id number] 2.16.840.1.606213.3.579.2. 1258 1997 Unknown [id number] 2.16.840.1.838237.3.579.2. 9 1997 Unknown [id number] 2.16.840.1.161890.3.579.2. 1258 1997 Unknown [id number] 2.16.840.1.967017.3.579.2. 1259 1997 Unknown [id number] 2.16.840.1.303339.3.579.2. 1258 1997 Unknown [id number] 2.16.840.1.349310.3.579.2. 1259 1959 Unknown [id number] Social History Date Type Detail Facility Start: 07-24-2021 End: 03-05-2023 Tobacco smoking status Never smoked tobacco (finding) [facility] Start: 09-01-2022 Tobacco smoking status Never [facility] Start: 01-28-2024 End: 07-29-2024 Sex Assigned At Female [facility] Start: 2023 Tobacco use and exposure Smokeless tobacco non-user [facility] Work Phone: Start: 01-28-2024 End: 06-23-2024 Alcoholic beverage intake Ex-drinker (finding) [facility] Work Phone: Start: 01-28-2024 End: 07-29-2024 History of Social function [facility] Work Phone: Start: 2023 Alcohol Comment Occassionally [facility] Work Phone: Start: 1997 Sex assigned at Not on file [facility] Work Phone: Start: 12-01-2023 End: 10-07-2024 Exposure to SARS-CoV-2 (event) Not sure [facility] Start: 02-23-2024 End: 02-07-2025 Alcoholic beverage intake Current drinker of alcohol (finding) [facility] Work Phone: Start: 03-05-2023 Alcohol Comment Beer 1-2 times per m [facility] Start: 12-18-2023 End: 12-28-2023 Exposure to SARS-CoV-2 (event) Unable to assess [facility] Start: 06-08-2024 [facility] Medical Equipment Procedure Code Equipment Code Equipment Origin al Text Equipment Identifier Dates [id number] Start: 03-01-2024 End: 03-09-2024 Functional Status Date Assessment Result Facility 04-06-2024 Functional Status N/A [facility] 10-02-2023 Functional Status N/A [facility] 08-27-2023 Functional Status N/A [facility] 02-19-2023 Functional Status N/A [facility] Clinical Notes 07-24-2021 to 02-14-2025 [...] nursing note reviewed. Exam conducted with a electrical products engineer present. Vitals: Estimated body mass index is 42.07 kg/m as calculated from the following: Height as of 09/17/22: 5' 3 . Weight as of this encounter: 237 lb 8 oz. BP: 110/82 No LMP recorded. Patient is . ASSESSMENT & PLAN ICD-10-CM 1. Third trimester ([facility] Z34.93 POCT urinalysis dipstick manually resulted 2. 37 weeks gestation of ([facility]) Z3A.37 Return OB: Patient presents today [...] meniscus -SBS TONSILLECTOMY documented in this encounter [place] [address]-07-2025 History of Present illness Narrative Reason for [...] nursing note reviewed. Exam conducted with a electrical products engineer present. Vitals: Estimated body mass index is 41.88 kg/m as calculated from the following: Height as of 09/17/22: 5' 3 . Weight as of this encounter: 236 lb 6.4 oz. BP: 128/82 No LMP recorded. Patient is . ASSESSMENT & PLAN ICD-10-CM 1. Third trimester ([facility]) Z34.93 2. 36 weeks gestation of ([facility]) Z3A.36 POCT urinalysis dipstick manually resulted Return [...] Yomaira Guerrero NP documented in this encounter [facility] 01-31-2025 History of Present illness Narrative [...] nursing note reviewed. Exam conducted with a electrical products engineer present. Vitals: Estimated body mass index is 40.57 kg/m as calculated from the following: Height as of 09/17/22: 5' 3 . Weight as of this encounter: 229 lb. BP: 122/76 No LMP recorded. Patient is . ASSESSMENT & PLAN ICD-10-CM 1. Third trimester ([facility]) Z34.93 CULTURE, GROUP B STREP WITH SUSCEPTIBLITY CULTURE, GROUP B STREP WITH SUSCEPTIBLITY CANCELED: CULTURE, GROUP B STREP WITH SUSCEPTIBLITY 2. 35 weeks gestation of ([facility]) Z3A.35 POCT urinalysis dipstick manually resulted [...] Yomaira Guerrero NP documented in this encounter [facility] 01-16-2025 History of Present illness Narrative [...] PLAN ICD-10-CM 1. 33 weeks gestation of ([facility]) Z3A.33 POCT urinalysis dipstick manually resulted 2. Third trimester ([facility]) Z34.93 POCT urinalysis dipstick manually resulted 3. Group B streptococcal infection A49.1 4. resulting from in vitro fertilization in first trimester ([facility]) O09.811 Return OB: Patient presents today [...] Layo Courtney DO documented in this encounter [facility] 01-03-2025 History of Present illness Narrative [...] nursing note reviewed. Exam conducted with a electrical products engineer present. Vitals: Estimated body mass index is 39.47 kg/m as calculated from the following: Height as of 09/17/22: 5' 3 . Weight as of this encounter: 222 lb 12.8 oz. BP: 118/74 No LMP recorded. Patient is . ASSESSMENT & PLAN ICD-10-CM 1. Third trimester ([facility] Z34.93 POCT urinalysis dipstick manually resulted 2. 31 weeks gestation of ([facility] Z3A.31 POCT urinalysis dipstick manually resulted Return [...] Layo Courtney DO documented in this encounter [facility] 12-19-2024 History of Present illness [...] nursing note reviewed. Exam conducted with a electrical products engineer present. Vitals: Estimated body mass index is 38.76 kg/m as calculated from the following: Height as of 09/17/22: 5' 3 . Weight as of this encounter: 218 lb 12.8 oz. BP: 116/70 No LMP recorded. Patient is . ASSESSMENT & PLAN ICD-10-CM 1. 29 weeks gestation of ([facility]) Z3A.29 POCT urinalysis dipstick manually resulted 2. Third trimester ([facility]) Z34.93 POCT urinalysis dipstick manually resulted [...] Layo Courtney DO documented in this encounter [facility] 12-06-2024 History of Present illness [...] PLAN ICD-10-CM 1. 27 weeks gestation of ([facility]) Z3A.27 POCT urinalysis dipstick manually resulted 2. Second trimester ([facility]) Z34.92 POCT urinalysis dipstick manually resulted [...] Layo Courtney DO documented in this encounter [facility] 11-08-2024 History of Present illness [...] ASSESSMENT & PLAN ICD-10-CM 1. Second trimester ([facility]) Z34.92 POCT urinalysis dipstick manually resulted 2. 26 weeks gestation of ([facility]) Z3A.26 POCT urinalysis dipstick manually resulted [...] Layo Courtney DO documented in this encounter [facility] 10-17-2024 History of Present illness [...] nursing note reviewed. Exam conducted with a electrical products engineer present. Vitals: Estimated body mass index is 35.52 kg/m as calculated from the following: Height as of 09/17/22: 5' 3 . Weight as of this encounter: 200 lb 8 oz. BP: 126/82 No LMP recorded. Patient is . ASSESSMENT & PLAN ICD-10-CM 1. Second trimester ([facility]) Z34.92 POCT urinalysis dipstick manually resulted 2. 20 weeks gestation of [facility] Z3A.20 Return OB: Patient presents today for [...] Layo Courtney DO documented in this encounter [facility] 10-11-2024 History of Present illness [...] Layo Courtney DO documented in this encounter [facility] 09-06-2024 History of Present illness [...] of: ORION Spence documented in this encounter [facility] 08-08-2024 History of Present illness [...] nursing note reviewed. Exam conducted with a electrical products engineer present. Vitals: Estimated body mass index [...] Layo Courtney DO documented in this encounter [facility] 07-29-2024 History of Present illness [...] screen, urine; Future Nurse Note: Patient declined [place] billion to one Pt is an IVF [...] or undercooked meat, and stay away from [facility]. Patient has also been advised to not [...] or questions. Nurse Visit Completed by: Marilia lEder MA documented in this encounter [facility] 07-11-2024 History of Present illness [...] 07/11/2024 3:54 PM documented in this encounter [facility] Work Phone: 06-13-2024 History of [...] Preop diagnosis: Infertility Post op diagnosis: Same Smoking Pipe Driller And Threader: none Depth: 7 cm Curve: anterior Distance [...] 06/13/24 11:24 AM documented in this encounter [facility] Work Phone: 06-13-2024 Hospital Discharge instructions Tisha Sparks RN - 06/13/2024 10:43 AM EST Images from the original note were not included. [facility] [address] [place] [address] Home Going Instructions after Embryo Transfer: After [...] in : Advil, Motrin, Ibuprofen, Aleve, Excedrin, [place], Sudafed, and Pepto-Bismol. Avoid aspirin unless you [...] Sparks 10:43 AM documented in this encounter [facility] Work Phone: 06-06-2024 History of [...] further instructed. Message sent to front end assistant to schedule at 8:45 slot at [place] for US and labs. ZOE FRANCIS on 06/06/24 at 1:12 PM. documented in this encounter [facility] Work Phone: 04-06-2024 Hospital Discharge [...] provider. Document Revised: 09/09/2021 Document Reviewed: 09/09/2021 [employer] Patient Education 2023 [email or web address]. Follow Up Care 03/25/2024 14:07:23 With:Mallory Judd Address: When:Within 6 Month(s) [facility] 03-22-2024 History [...] diagnosis: Female infertility Post op diagnosis: Same Smoking Pipe Driller And Threader: Dr. Warren IV Fluids: 600 cc EBL: 5 cc UOP: Not recorded Specimen: Oocytes Complications: None Number of Oocytes right ovary: 16 Ovarian access (right): Easy Number of Oocytes left ovary: 9 Ovarian access (left): Easy Endometrial thickness: n/a Needle type: Single Additional notes: documented in this encounter [facility] Work Phone: 03-22-2024 Nurse Note Patient discharged to home in stable condition via wheelchair to [facility] HOME: Partner's car. Accompanied by RN. ABREU at time of discharge. Discharge instructions given and concerns addressed. Gisell Michel RN 03/22/24 11:08 AM [facility] Work Phone: 03-22-2024 Nurse Note Patient discharged to home in stable condition via wheelchair to [facility] HOME: Partner's car. Accompanied by RN. ABREU at time of discharge. Discharge instructions given and concerns addressed. Gisell Michel RN 03/22/24 11:08 AM documented in this encounter [facility] Work Phone: 03-22-2024 Hospital Discharge instructions Gisell Michel RN - 03/22/2024 8:45 AM EST Images from the original note were not included. [address] [place] [address] Home Going Instructions after Egg Retrieval: Activity: [...] 2 weeks following your oocyte retrieval. Call [phone] to speak with a Physician or Nurse if you have any concerns. Gisell Michel 8:45 AM [facility] [address]. [place], [place] IVF LAB EMBRYO UPDATE PROTOCOL The [...] frozen. Gisell Michel 8:44 AM [facility] [address] [place] [address] Frozen Embryo Transfer Instructions After your egg retrieval, follow up with your IVF nurse within 3-4 days Thursday-Thursday regarding the plan for your frozen embryo transfer (FET) cycle. Your IVF nurse will order and review with you the medications you will be using for the cycle. You will be sent an email from [facility] to fill out your Frozen Embryo Treatment [...] RN 8:44 AM documented in this encounter [facility] Work Phone: 03-20-2024 History of [...] Arrive 60 minutes prior to procedure at [place] [address]. Patient verbalizes understanding of plan and location of procedure. Patient scheduled to go to [facility] tomorrow for post trigger labs Krissy Yanes 03/20/2024 11:01 AM documented in this encounter [facility] Work Phone: 03-19-2024 History of [...] 03/19/24 11:02 AM documented in this encounter [facility] Work Phone: 03-17-2024 History of [...] 03/17/24 1:04 PM documented in this encounter [facility] Work Phone: 03-15-2024 History of [...] further questions. Transferred to the front end assistant to schedule appt for 03/17. Allyssa Rboles 03/15/24 1:27 PM documented in this encounter [facility] Work Phone: 03-09-2024 History of [...] Yes; PGT-M Test Ready: No ; Company: [employer] PGT order scanned into [employer], confirmed by: LORI on Plan to freeze: [...] by delano On site at [facility] Additional details: Allyssa Robles 03/09/2024 7:50 AM TC to pt to confirm today's plan; LM; will send [facility] message. Allyssa Robles 03/09/24 2:02 PM Pt called back to confirm plan; Pt has all meds and all questions answered. She plans to purchase FET meds before the end of the year (they were ordered back in February) and will call [facility] to have them filled as she has met deductible and REECE needs a PA. Allyssa Nailsaney 03/09/24 2:33 PM documented in this encounter [facility] Work Phone: 02-23-2024 Nurse Note Patient discharged to home in stable condition via wheelchair accompanied by this RN to [facility] HOME: Partner's car. Discharge instructions given and concerns addressed. Patient verbalizes understanding of all information provided and is agreeable. [facility] 02-23-2024 Nurse Note Patient discharged [...] amount of bleeding. documented in this encounter [facility] Work Phone: 02-23-2024 Nurse Note Patient up to bathroom independently, no complaints of pain or dizziness, able to void without issue, reports scant amount of bleeding. [facility] Work Phone: 02-23-2024 History of [...] diagnosis: Female infertility Post op diagnosis: Same Smoking Pipe Driller And Threader: none IV Fluids: 500 cc EBL: 5 cc UOP: Not recorded Specimen: Oocytes Complications: None Number of Oocytes right ovary: 17 Ovarian acc ss (right): Easy Number of Oocytes left ovary: 13 Ovarian access (left): Easy Endometrial thickness: n/a Needle type: Single Additional notes: documented in this encounter [facility] Work Phone: 10-22-2024 Hospital Discharge instructions Donya Rosas RN - 02/23/2024 7:23 AM EDT Images from the original note were not included. [facility] [address] [place] [address] Home Going Instructions after Egg Retrieval: Activity: [...] 2 weeks following your oocyte retrieval. Call [phone] to speak with a Physician or Nurse if you have any concerns. DONYA ROSAS 7:[address] [place], [place] IVF LAB EMBRYO UPDATE PROTOCOL The [...] biopsied and frozen. DONYA ROSAS 7:[address] [place], [place] IVF LAB EMBRYO UPDATE PROTOCOL The [...] frozen. DONYA ROSAS 7:23 AM [facility] [address] [place] [address] Frozen Embryo Transfer Instructions After your egg retrieval, follow up with your IVF nurse within 3-4 days Thursday-Thursday regarding the plan for your frozen embryo transfer (FET) cycle. Your IVF nurse will order and review with you the medications you will be using for the cycle. You will be sent an email from [employer] to fill out your Frozen Embryo Treatment [...] RN 7:32 AM documented in this encounter [facility] Work Phone: 02-21-2024 History of [...] 02/21/2024 9:09 AM documented in this encounter [facility] Work Phone: 02-20-2024 History of [...] Beth Judge RN documented in this encounter [facility] Work Phone: 02-18-2024 History of [...] Beth Judge RN documented in this encounter [facility] Work Phone: 02-16-2024 History of [...] Will look into getting insulin syringes from [facility]. Team will contact patient later today with results and plan. Krissy Yanes 02/16/2024 7:27 AM LM with patient with plan to start Cetrotide today, drop FSH to 225 units and continue Menopur 75 units. Patient is already scheduled for 02/17 for repeat follicle scan and e2. Krissy Yanes 02/16/24 1:34 PM documented in this encounter [facility] Work Phone: 02-09-2024 History of [...] Yes; PGT-M Test Ready: No /A; Company: [employer] PGT order scanned into [employer], confirmed by: LORI on 02/09/2024 Plan to freeze: embryos [employer] forms/out waiver complete: Yes Does patient have medications onhand? Yes Pharmacy: [facility] pass signed off: Yes LORETTA on [...] 02/09/24 1:16 PM documented in this encounter [facility] Work Phone: 01-28-2024 Nurse Note Patient discharged to home in stable condition via wheelchair to RIDE HOME: Partner's car. Discharge instructions given and concerns addressed. [facility] Work Phone: 01-28-2024 Nurse Note Patient discharged to home in stable condition via wheelchair to RIDE HOME: Partner's car. Discharge instructions given and concerns addressed. documented in this encounter [facility] Work Phone: 01-28-2024 History of [...] no immediate complications documented in this encounter [facility] Work Phone: 01-28-2024 Hospital Discharge instructions Ira Lopez RN - 01/28/2024 8:20 AM EDT Images from the original note were not included. [address]. [place] [id number] Home Going Instructions after Polypectomy: Activity: We [...] foul smelling discharge. Worsening abdominal pain. Ira Lopze 8:20 AM documented in this encounter [facility] Work Phone: 01-14-2024 History of [...] nursing note reviewed. Exam conducted with a electrical products engineer present. Vitals: Estimated body mass index [...] of: ORION Spence documented in this encounter [facility] 12-28-2023 History of Present illness [...] polyp noted (not removed as of yet) COUNTER PROFESSIONAL Pelvic Ultrasound: 07/2023 AMH 2.01 Relationship Status: x 2 years OB Hx G0 OB History 0 Para 0 Term 0 0 AB 0 Living 0 SAB 0 IAB 0 Ectopic 0 Multiple 0 Live Births 0 COUNTER PROFESSIONAL HISTORY History of STD or PID: No [...] 12/28/2023 10:39 AM documented in this encounter [facility] Work Phone: 2023 History of [...] polyp noted (not removed as of yet) COUNTER PROFESSIONAL Pelvic Ultrasound: 07/2023 AMH 2.01 Prior Labs [...] Ectopic 0 Multiple 0 Live Births 0 COUNTER PROFESSIONAL HISTORY History of STD or PID: No [...] 500 mg daily Recommend Consult with Dr. Meyre [phone] Recommend repeat SA with 48-72 hours abstinence [...] 2023 8:52 AM documented in this encounter [facility] Work Phone: 2023 Instructions SMITH Mina - 2023 8:45 AM EDT Recommend Male Vitamins Discussed as follows: Co-Q10 200 mg daily L-Carnitine 200-500 mg daily Vitamin C 500 mg daily Recommend Consult with Dr. Meyer [phone] Recommend repeat SA with 48-72 hours abstinence Recommend Female Vitamins: vitamin Vitamin D (total of 2,000 international units daily) CoQ10 600 mg daily documented in this encounter [facility] Work Phone: 10-02-2023 Hospital Discharge [...] food choices, such as grocery stores and [employer]. What are the signs or symptoms? The [...] and how much exercise you get. Take zoin-ixq-wqmjfwk and prescription medicines only as told by [...] provider. Document Revised: 11/26/2021 Document Reviewed: 11/26/2021 [employer] Patient Education 2022 [email or web address] 10/02/2023 12:54:15 BMI for Adults BMI for [...] numbers. This can be done either in [place] or metric measurements. Note that charts and online BMI calculators are available to help you find your BMI quickly and easily without having to do these calculations yourself. To calculate your BMI in [place] ([place] measurements: 1.Measure your weight in pounds [...] Centers for Disease Control and Prevention: www.cdc.gov [place] Heart Association: www.heart.org National Heart, Lung, and Blood [place]: www.nhlbi.nih.gov Summary Body mass index (BMI) is a number that is calculated from a person's weight and height. BMI may help estimate how much of a person's weight is composed of fat. BMI can help identify those who may be at higher risk for certain medical problems. BMI can be measured using [place] measurements or metric measurements. BMI charts are used to identify whether you are underweight, normal weight, overweight, or obese. This information is not intended to replace advice given to you by your health care provider. Make sure you discuss any questions you have with your health care provider. Document Revised: 01/11/2020 Document Reviewed: 11/18/2019 [employer] Patient Education 2022 [email or web address] 10/02/2023 12:54:13 Migraine Headache Migraine Headache A [...] Follow these instructions at home: Medicines Take nlkt-utw-jskmbjn and prescription medicines only as told by your health care provider. Ask your health care provider if the medicine prescribed to you: ?Requires you to avoid driving or using heavy machinery. ?Can cause constipation. You may need to take these actions to prevent or treat constipation: ?Drink enough fluid to keep your urine pale yellow. ?Take ezee-ksy-cgqdyvr or prescription medicines. ?Eat foods that are [...] provider. Document Revised: 08/12/2019 Document Reviewed: 06/02/2019 [employer] Patient Education 2022 [employer] 10/02/2023 12:54:11 Form - Headache Record [...] provider. Document Revised: 09/18/2021 Document Reviewed: 09/18/2021 [employer] Patient Education 2022 [email or web address] 10/02/2023 12:54:08 Eczema Eczema Eczema refers to [...] these instructions at home: Take or apply qcwp-pbs-rjsbvcn and prescription medicines only as told by your health care provider. Use creams or ointments to moisturize your skin. Do not use lotions. Learn what triggers or irritates your symptoms so you can avoid these things. Treat symptom flare-ups quickly. Do not scratch your skin. This can make your rash worse. Keep all follow-up visits. This is important. Where to find more information [place] Academy [employer] Dermatology: aad.org National Eczema Association: [...] provider. Document Revised: 01/28/2021 Document Reviewed: 01/28/2021 [employer] Patient Education 2022 [email or web address] 10/02/2023 12:54:06 BMI for Adults BMI for [...] numbers. This can be done either in [place] ([place] or metric measurements. Note that charts and online BMI calculators are available to help you find your BMI quickly and easily without having to do these calculations yourself. To calculate your BMI in [place] (U.[place] measurements: 1.Measure your weight in pounds [...] Centers for Disease Control and Prevention: www.cdc.gov [place] Heart Association: www.heart.org National Heart, Lung, and Blood [place]: www.nhlbi.nih.gov Summary Body mass index (BMI) is a number that is calculated from a person's weight and height. BMI may help estimate how much of a person's weight is composed of fat. BMI can help identify those who may be at higher risk for certain medical problems. BMI can be measured using [place] measurements or metric measurements. BMI charts are used to identify whether you are underweight, normal weight, overweight, or obese. This information is not intended to replace advice given to you by your health care provider. Make sure you discuss any questions you have with your health care provider. Document Revised: 01/11/2020 Document Reviewed: 11/18/2019 [employer] Patient Education 2022 [email or web address]. Follow Up Care 09/22/2023 13:18:17 With:Princess Dumont FAM, [facility] Address: [address], [address] [place] [id number]- Business (1) When:07/08/2023 Comments:for f/u [facility] 08-27-2023 Hospital [...] 1.Identify the foods that contain carbohydrates: Rice. [place]. Milk. Strawberries. 2.Calculate how many servings you [...] and snacks. Where to find more information [place] Diabetes Association: diabetes.org Centers for Disease Control [...] provider. Document Revised: 11/21/2020 Document Reviewed: 11/21/2020 [employer] Patient Education 2022 [employer] 08/27/2023 19:11:56 Calorie Counting for Weight [...] provider. Document Revised: 05/31/2020 Document Reviewed: 05/31/2020 [employer] Patient Education 2022 [email or web address]. 08/27/2023 19:11:54 Exercising to Lose Weight Exercising [...] care provider or diet and nutrition services assistant (dietitian). This may include: ?Eating fewer [...] provider. Document Revised: 06/16/2021 Document Reviewed: 06/16/2021 [employer] Patient Education 2022 [email or web address] 08/27/2023 19:11:53 BMI for Adults BMI for [...] numbers. This can be done either in [place] ([place] or metric measurements. Note that charts and online BMI calculators are available to help you find your BMI quickly and easily without having to do these calculations yourself. To calculate your BMI in [place] ([place] measurements: 1.Measure your weight in pounds [...] Centers for Disease Control and Prevention: www.cdc.gov [place] Heart Association: www.heart.org National Heart, Lung, and Blood [place]: www.nhlbi.nih.gov Summary Body mass index (BMI) is a number that is calculated from a person's weight and height. BMI may help estimate how much of a person's weight is composed of fat. BMI can help identify those who may be at higher risk for certain medical problems. BMI can be measured using [place] measurements or metric measurements. BMI charts are used to identify whether you are underweight, normal weight, overweight, or obese. This information is not intended to replace advice given to you by your health care provider. Make sure you discuss any questions you have with your health care provider. Document Revised: 01/11/2020 Document Reviewed: 11/18/2019 [employer] Patient Education 2022 [email or web address] 08/27/2023 19:11:48 Musculoskeletal Pain Musculoskeletal Pain Musculoskeletal [...] mouth or applied to the skin. Take avbk-dip-cmhnrgu and prescription medicines only as told by [...] provider. Document Revised: 08/23/2020 Document Reviewed: 08/01/2020 [employer] Patient Education 2022 [employer] 08/27/2023 19:05:09 Cervicogenic Headache Cervicogenic Headache [...] includes your primary health care provider, a foxing painter, a neurologist, and a physical therapist. Follow these instructions at home: Take zppc-dyg-tsofnsg and prescription medicines only as told by [...] includes your primary health care provider, a foxing painter, a neurologist, and a physical therapist. This information is not intended to replace advice given to you by your health care provider. Make sure you discuss any questions you have with your health care provider. Document Revised: 10/24/2021 Document Reviewed: 10/24/2021 [employer] Patient Education 2022 [employer] 08/27/2023 19:05:07 Form - Headache Record [...] Follow these instructions at home: Medicines Take eifl-wdc-wpokaes and prescription medicines only as told by [...] for Headache and Migraine Patients (CHAMP): headachemigraine.org [place] Migraine Foundation: americanmigrainefoundation.org National Headache Foundation: headaches.org [...] provider. Document Revised: 06/06/2020 Document Reviewed: 06/06/2020 [employer] Patient Education 2022 [email or web address] 08/27/2023 19:05:03 BMI for Adults BMI for [...] numbers. This can be done either in [place] ([place] or metric measurements. Note that charts and online BMI calculators are available to help you find your BMI quickly and easily without having to do these calculations yourself. To calculate your BMI in [place] ([place] measurements: 1.Measure your weight in pounds [...] Centers for Disease Control and Prevention: www.cdc.gov [place] Heart Association: www.heart.org National Heart, Lung, and Blood [place]: www.nhlbi.nih.gov Summary Body mass index (BMI) is a number that is calculated from a person's weight and height. BMI may help estimate how much of a person's weight is composed of fat. BMI can help identify those who may be at higher risk for certain medical problems. BMI can be measured using [place] measurements or metric measurements. BMI charts are used to identify whether you are underweight, normal weight, overweight, or obese. This information is not intended to replace advice given to you by your health care provider. Make sure you discuss any questions you have with your health care provider. Document Revised: 01/11/2020 Document Reviewed: 11/18/2019 [employer] Patient Education 2022 [email or web address] 08/27/2023 19:05:01 Health Maintenance, Female Health Maintenance, [...] provider. Document Revised: 09/09/2021 Document Reviewed: 09/09/2021 [employer] Patient Education 2022 [email or web address]. Follow Up Care 08/17/2023 08:42:02 With:Dionte MARI, TIARA Martinez, [facility] Address: [facility] [address], [facility] [address] [address] When:Within 6 Week(s) Comments:weight loss and headaches [facility] 02-19-2023 Evaluation + Plan note Future Scheduled TestsU Protein/Creat Ratio 02/19/23HgbA1c 02/19/23Microalbumin Level Urine 02/19/23TSH With T4fr Reflex 02/19/23Vitamin D 25 Hydroxy 02/19/23CBC w/ Auto Diff 02/19/23Comprehensive Metabolic Panel 02/19/23Lipid Panel 02/19/23XR Spine Cervical 4 or 5 Views 02/19/23 [facility] 02-19-2023 Hospital [...] includes your primary health care provider, a foxing painter, a neurologist, and a physical therapist. Follow these instructions at home: Take gycl-nnz-iuvutuv and prescription medicines only as told by [...] includes your primary health care provider, a foxing painter, a neurologist, and a physical therapist. This information is not intended to replace advice given to you by your health care provider. Make sure you discuss any questions you have with your health care provider. Document Revised: 10/24/2021 Document Reviewed: 10/24/2021 [employer] Patient Education 2022 [employer] 02/19/2023 08:34:09 Migraine Headache Migraine Headache [...] Follow these instructions at home: Medicines Take aujl-vto-egansel and prescription medicines only as told by your health care provider. Ask your health care provider if the medicine prescribed to you: ?Requires you to avoid driving or using heavy machinery. ?Can cause constipation. You may need to take these actions to prevent or treat constipation: ?Drink enough fluid to keep your urine pale yellow. ?Take qbfu-ruw-bugjffa or prescription medicines. ?Eat foods that are [...] provider. Document Revised: 08/12/2019 Document Reviewed: 06/02/2019 [employer] Patient Education 2022 [employer] 02/19/2023 08:34:03 Form - Headache Record [...] provider. Document Revised: 09/18/2021 Document Reviewed: 09/18/2021 [employer] Patient Education 2022 [employer] 02/19/2023 01:02:45 General Headache Without Cause [...] help with your condition: Managing pain Take djpd-tbt-tgsimmu and prescription medicines only as told by [...] provider. Document Revised: 09/18/2021 Document Reviewed: 09/18/2021 [employer] Patient Education 2022 [employer] 02/19/2023 01:02:42 Form - Headache Record [...] provider. Document Revised: 09/18/2021 Document Reviewed: 09/18/2021 [employer] Patient Education 2022 [email or web address]. 02/19/2023 01:02:37 Cervicogenic Headache Cervicogenic Headache In [...] includes your primary health care provider, a foxing painter, a neurologist, and a physical therapist. Follow these instructions at home: Take dvvj-zla-coledni and prescription medicines only as told by [...] includes your primary health care provider, a foxing painter, a neurologist, and a physical therapist. This information is not intended to replace advice given to you by your health care provider. Make sure you discuss any questions you have with your health care provider. Document Revised: 10/24/2021 Document Reviewed: 10/24/2021 [employer] Patient Education 2022 [email or web address]. 02/19/2023 01:02:35 Chronic Migraine Headache Chronic Migraine [...] Follow these instructions at home: Medicines Take mjoo-omj-lqxnhgw and prescription medicines only as told by [...] for Headache and Migraine Patients (CHAMP): headachemigraine.org [place] Migraine Foundation: americanmigrainefoundation.org National Headache Foundation: headaches.org [...] provider. Document Revised: 06/06/2020 Document Reviewed: 06/06/2020 [employer] Patient Education 2022 [email or web address]. Follow Up Care 02/17/2023 08:10:14 With:Princess Dumont FAM, MED Address: [address] [place] [phone] When:Within 1 Month(s) Comments:headaches. neck pain With:Princess Dumont FAM, MED Address: [address] [place] [phone] When:Within 1 Year(s) Comments:annual wellness, anxiety/ depression [facility] 07-24-2021 Hospital [...] height. This can be done either in [place] ([place] or metric measurements. Note that charts are available to help you find your BMI quickly and easily without having to do these calculations yourself. To calculate your BMI in [place] ([place] measurements, your health care provider will: [...] medical problems. BMI can be measured using [place] measurements or metric measurements. To interpret your [...] 12/30/2004 Document Revised: 04/02/2018 Document Reviewed: 03/03/2018 [employer] Patient Education 2020 [email or web address] 07/24/2021 17:16:58 Health Maintenance, Female Health Maintenance, [...] 11/03/2011 Document Revised: 04/13/2019 Document Reviewed: 04/13/2019 [employer] Patient Education 2020 [email or web address]. Follow Up Care 06/26/2021 18:00:45 With:Leigh Ann Covington CNP Address: When: only if needed [facility] Evaluation + Plan note Future Appointments Appointment Date:10/03/2021 01:00:00 PM Scheduled Provider:Naya ABDI Location:[facility] [place] Appointment Type:[facility] Evaluation + Plan note Future Appointments Appointment Date:03/25/2023 07:00:00 AM Scheduled Provider:Princess Dumont Location:[facility] Appointment Type:FM Open Future Scheduled TestsU Protein/Creat Ratio 02/19/23HgbA1c 02/19/23Microalbumin Level Urine 02/19/23TSH With T4fr Reflex 02/19/23Vitamin D 25 Hydroxy 02/19/23CBC w/ Auto Diff 02/19/23Comprehensive Metabolic Panel 02/19/23Lipid Panel 02/19/23XR Spine Cervical 4 or 5 Views 02/19/23 [facility] Evaluation + Plan note Future Appointments Appointment Date:10/21/2023 07:20:00 AM Scheduled Provider:Princess Dumont Location:[facility] Appointment Type: Open Future Scheduled TestsTSH With T4fr Reflex 02/19/23Vitamin D 25 Hydroxy 02/19/23CBC w/ Auto Diff 02/19/23Comprehensive Metabolic Panel 02/19/23Lipid Panel 02/19/23XR Spine Cervical 4 or 5 Views 02/19/23 [facility] Evaluation + Plan note Future Appointments Appointment Date:10/05/2024 07:00:00 AM Scheduled Provider:Mallory Judd Location:[facility] Appointment Type: Open [facility] Evaluation note Diagnosis Endometrial polyp Polyp of corpus uteri documented in this encounter [facility] Work Phone: Evaluation note* Diagnosis Pre-procedure lab exam Pre-procedural laboratory examination Female infertility Female infertility of unspecified origin documented in this encounter [facility] Work Phone: [phone] note* Diagnosis Female infertility Female infertility of unspecified origin documented in this encounter [facility] Work Phone: [phone] note* Diagnosis Female infertility Female infertility of unspecified origin documented in this encounter [facility] Work Phone: [phone] note* Diagnosis Encounter for assisted reproductive fertility cycle Encounter for assisted reproductive fertility procedure cycle documented in this encounter [facility] Work Phone: [phone] note* Diagnosis Female infertility Female infertility of unspecified origin Pre-procedure lab exam Pre-procedural laboratory examination documented in this encounter [facility] Work Phone: [phone] note* Diagnosis Female infertility Female infertility of unspecified origin documented in this encounter [facility] Work Phone: [phone] note* Diagnosis Female infertility Female infertility of unspecified origin documented in this encounter [facility] Work Phone: [phone] note* Diagnosis Female infertility Female infertility of unspecified origin documented in this encounter [facility] Work Phone: [phone] note* Diagnosis Encounter for assisted reproductive fertility cycle Encounter for assisted reproductive fertility procedure cycle documented in this encounter [facility] Work Phone: [phone] note* Diagnosis Encounter for assisted reproductive fertility cycle Encounter for assisted reproductive fertility procedure cycle documented [facility] [facility] Work Phone: [phone] note* Diagnosis Well woman exam with routine [...] other specified origin documented in this encounter [facility] Work Phone: [phone] note* Diagnosis Fertility testing [Z31.41]- Primary Fertility testing 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 [Z31.81, N97.8] documented in this encounter [facility] Work Phone: Evaluation note* Diagnosis Endometrial polyp Polyp of corpus uteri documented in this encounter [facility] Work Phone: Evaluation note* Diagnosis Female infertility Female infertility of unspecified origin documented in this encounter [facility] Work Phone: Evaluation note* Diagnosis Encounter for assisted reproductive fertility cycle Encounter for assisted reproductive fertility procedure cycle documented in this encounter [facility] Work Phone: Evaluation note* Diagnosis Encounter for assisted reproductive fertility cycle Encounter for assisted reproductive fertility procedure cycle Encounter for test, result unknown documented in this encounter [facility] Work Phone: Evaluation note* Diagnosis Encounter to determine viability of , single or unspecified fetus documented in this encounter [facility] Work Phone: Evaluation note* Diagnosis [...] note* Diagnosis (HHS-HCC) documented in this encounter [facility] Work Phone: Evaluation note* Diagnosis [...] Narrative No data available for this section [facility] Hospital Discharge instructions No data available for this section [facility] Progress note No data available for this section [facility] Reason for referral (narrative)* Consultation (Routine) - Authorized Specialty Diagnoses / Procedures Referred By Alejandro hyatt Referred To Contact Genetics Diagnoses Genetic screening Trish Thorpe APRN-CNP [address] [place] [address] Referral ID Status Reason Start Date Expiration Date Visits Requested Visits Authorized [id number] Authorized Specialty Services Required 2023 12/10/2024 1 1 [facility] Work Phone: reason for visit Narrative* Imaging (Routine) - Authorized Specialty Diagnoses / Procedures Referred By Contac t Referred To Contact Radiology Diagnoses Female infertility Procedures KELSY US Pelvis Limited Follicles - Follicle Studies Performed America Chavez, REMOTE INPATIENT CODER-MAINTENANCE ENGINEER [address] [place] [address] Phone: tel: fax: Referral ID Status Reason Start Date Expiration Date Visits Requested Visits Authorized [id number] Authorized Perform Procedure 02/02/2024 02/01/2025 8 8 [facility] Work Phone: reason for visit Narrative* Imaging (Routine) - Pending Review Specialty Diagnoses / Procedures Referred By Contac t Referred To Contact Radiology Diagnoses Female infertility Procedures KELSY US Pelvis Limited Follicles - Follicle Studies Performed America Chavez, REMOTE INPATIENT CODER-MAINTENANCE ENGINEER [address] [place] [address] Phone: tel: fax: Referral ID Status Reason Start Date Expiration Date Visits Requested Visits Authorized [id number] Pending Review Perform Procedure 02/02/2024 02/01/2025 8 8 [facility] Work Phone: reason for visit [...] CYTOGENETICS&MOLEC CYTOGENETICS INTERP&REP Beth Warren MD [address] [place] [address] Phone: tel: fax: Referral ID Status Reason Start Date Expiration Date V isits Requested Visits Authorized [id number] Authorized 01/27/2024 01/26/2025 1 1 [facility] Work Phone: reason for visit Narrative* Imaging (Routine) - Authorized Specialty Diagnoses / Procedures Referred By Alejandro t Referred To Contact Radiology Diagnoses Female infertility Procedures KELSY US Pelvis Limited Follicles - Follicle Studies Performed Donya Abernathy, CHRISTEN-MAINTENANCE ENGINEER [address] [facility], [address], [place] [address] Phone: tel: fax: Referral ID Status Reason Start Date Expiration Date Visits Requested Visits Authorized [id number] Authorized Perform Procedure 4 03/01/2025 8 8 [facility] Work Phone: Reason for visit [...] PROCEDURE CHG CYTOGENETICS&MOLEC CYTOGENETICS INTERP&REP Donya Abernathy, REMOTE INPATIENT CODER-MAINTENANCE ENGINEER [address] [facility], [address], [place] [address] Phone: tel: fax: Referral ID Status Reason Start Date Expiration Date V isits Requested Visits Authorized [id number] Authorized 03/01/2024 03/01/2025 1 0 [facility] Work Phone: Reason for visit Narrative* Imaging (Routine) - Authorized Specialty Diagnoses / Procedures Referred By Contcecilia t Referred To Contact Radiology Diagnoses Female infertility Procedures KELSY US Endometrial Lining Check Donya Abernathy, REMOTE INPATIENT CODER-MAINTENANCE ENGINEER [address] [facility], [address], [place] [address] Phone: tel: fax: Referral ID Status Reason Start Date Expiration Date Visits Requested Visits Authorized [id number] Authorized Perform Procedure 4 02/23/2025 5 5 [facility] Work Phone: Reason for visit [...] Chavarria MD [address], [address] [place] [address] Phone: tel: fax: Referral ID Status Reason Start Date Expiration Date V isits Requested Visits Authorized [id number] Authorized 06/10/2024 06/10/2025 1 1 [facility] [place] [facility] Work Phone: Reason for visit Narrative* Imaging (Routine) - Authorized Specialty Diagnoses / Procedures Referred By Alejandro Referred To Contact Radiology Diagnoses ([facility]) Procedures US OB detail anatomy Layo Courtney DO [address] [facility] [address], [address] [place] [id number] Phone: tel: fax: Referral ID Status Reason Start Date Expiration Date Visits Requested Visits Authorized [id number] Authorized Perform Procedure 08/15/2024 08/15/2025 1 1 [facility] [place] [facility] Work Phone: Summary Purpose Family [...] Chavarria MD [address] [place] [address] [address] [place] [address] Referral ID Status Reason Start Date Expiration Date V isits Requested Visits Authorized [id number] Authorized 01/25/2024 01/24/2025 1 1 Additional Source Comments INFORMATION SOURCE (unrecogn ized section and content) DATE CREATED AUTHOR 08/01/2022 [facility] DATE CREATED AUTHOR AUTHOR'S ORGANIZ ATION 04/04/2024 [facility] DATE CREATED AUTHOR AUTHOR'S ORGANIZ ATION 06/15/2024 [facility] DATE CREATED AUTHOR AUTHOR'S ORGANIZ ATION 07/02/2024 [facility] DATE CREATED AUTHOR AUTHOR'S ORGANIZ ATION 07/14/2024 [facility] DATE CREATED AUTHOR AUTHOR'S ORGANIZ ATION 10/11/2024 [facility] DATE CREATED AUTHOR AUTHOR'S ORGANIZ ATION 02/16/2025 [facility] EPIC Patient Care team informatio n (unrecognized section and content) Booster Station Operator Relationship Specialty Start Date End Date Allyssa Robles RN Registered Nurse Reproductive Endocrinology and Infertility 12/25/23 Booster Station Operator Relationship Specialty Start Date End Date Allyssa Robles RN Registered Nurse Reproductive Endocrinology and Infertility 12/25/23 Booster Station Operator Relationship Specialty Start Date End Date Allyssa Robles RN Registered Nurse Reproductive Endocrinology and Infertility 12/25/23 Booster Station Operator Relationship Specialty Start Date End Date Allyssa Robles RN Registered Nurse Reproductive Endocrinology and Infertility 12/25/23 Booster Station Operator Relationship Specialty Start Date End Date Allyssa Robles RN Registered Nurse Reproductive Endocrinology and Infertility 12/25/23 Booster Station Operator Relationship Specialty Start Date End Date Allyssa Robles RN Registered Nurse Reproductive Endocrinology and Infertility 12/25/23 Booster Station Operator Relationship Specialty Start Date End Date Allyssa Robles RN Registered Nurse Reproductive Endocrinology and Infertility 12/25/23 Booster Station Operator Relationship Specialty Start Date End Date Allyssa Robles RN Registered Nurse Reproductive Endocrinology and Infertility 12/25/23 Booster Station Operator Relationship Specialty Start Date End Date Allyssa Robles RN Registered Nurse Reproductive Endocrinology and Infertility 12/25/23 Booster Station Operator Relationship Specialty Start Date End Date Ginger Torres LPN Licensed Practical Nurse 12/10/23 Booster Station Operator Relationship Specialty Start Date End Date Allyssa Robles RN Registered Nurse Reproductive Endocrinology and Infertility 12/25/23 Booster Station Operator Relationship Specialty Start Date End Date Allyssa Robles RN Registered Nurse Reproductive Endocrinology and Infertility 12/25/23 Booster Station Operator Relationship Specialty Start Date End Date Allyssa Robles RN Registered Nurse Reproductive Endocrinology and Infertility 12/25/23 Booster Station Operator Relationship Specialty Start Date End Date Allyssa Robles RN Registered Nurse Reproductive Endocrinology and Infertility 12/25/23 Booster Station Operator Relationship Specialty Start Date End Date Allyssa Robles RN Registered Nurse Reproductive Endocrinology and Infertility 12/25/23 Reason for Visit (unrecogniz ed section and content) Specialty Diagnoses / Procedures Referred By Alejandro hyatt Referred To Contact Diagnoses Endometrial polyp Procedures Polypectomy uJan Chavarria MD [address] [facility] [address], [place] [address] [address] [place] [address] Referral ID Status Reason Start Date Expiration Date V isits Requested Visits Authorized [id number] Authorized 01/25/2024 01/24/2025 1 1 Specialty Diagnoses / Procedures Referred By Alejandro hyatt Referred To Contact Radiology Diagnoses Female infertility Procedures KELSY US Pelvis Limited Follicles - Follicle Studies Performed America Chavez, REMOTE INPATIENT CODER-MAINTENANCE ENGINEER [address] [place] [address] Referral ID Status Reason Start Date Expiration Date Visits Requested Visits Authorized [id number] Authorized Perform Procedure 02/02/2024 02/01/2025 8 8 [...] BE BASED ON THE PRIMARY CLINICAL RECORDS. [facility]. provides no warranty or guarantee of the accuracy or completeness of information in this document.
[2025-02-17 18:52] LABS: INR 0.93; Partial Thromboplastin Time 26.9 sec (22.3-36.2); Prothrombin Time 9.9 sec (9.0-11.6)
[2025-02-17 19:07] LABS: Fibrinogen 385 mg/dL (200-400)
[2025-02-17 19:10] LABS: Cannabinoid Screen Urine NEGATIVE (NEGATIVE); Methamphetamines Screen Urine NEGATIVE (NEGATIVE); Tricyclic Antidepressant Urine NEGATIVE (NEGATIVE)
[2025-02-17] MEDS: MISOPROSTOL 100 MCG TABLET 25 MCG VAGINAL ×2 (19:57→23:12)
[2025-02-18] VITALS (105 sets, daily range): BP systolic 98–146; BP diastolic 57–100; PULSE 77–162; TEMP 35.3–36.9; O2SAT 98–100
[2025-02-18] MEDS: MISOPROSTOL 100 MCG TABLET 25 MCG VAGINAL (02:05)
[2025-02-18] MEDS: AMPICILLIN SODIUM 2,000 MG in 0.9 % SODIUM CHLORIDE 100 ML 200 MG IV (05:52)
[2025-02-18] MEDS: 0.9 % SODIUM CHLORIDE 1,000 ML 125 ML IV (05:52)
[2025-02-18] MEDS: OXYTOCIN/0.9 % SODIUM CHLORIDE 10 UNITS/500 ML PLAST..BAG 6 UNIT IV (05:53)
[2025-02-18] MEDS: AMPICILLIN SODIUM 1,000 MG in 0.9 % SODIUM CHLORIDE 50 ML 100 MG IV ×2 (11:08→14:08)
[2025-02-18] MEDS: ROPIVACAINE HCL/PF 400 MG/200 ML PREMIX 6 MG EPIDURAL (12:20)
[2025-02-18] MEDS: 0.9 % SODIUM CHLORIDE 1,000 ML 1000 ML IV (12:21)
[2025-02-18] MEDS: LIDOCAINE HCL 1% 200 MG/20 ML MDV INJ (19:03)
[2025-02-18] MEDS: OXYTOCIN/0.9 % SODIUM CHLORIDE 20 UNITS/1,000 ML PLAST..BAG 125 UNIT IV (19:18)
[2025-02-18] MEDS: KETOROLAC TROMETHAMINE 30 MG/ML VIAL IVP (19:20)
--- NOTE | 2025-02-18 19:35 | PM.OBPRCVD ---
Procedure Intrapartal events: None Induction method: per misoprostol protocol Delivery augmentation: rupture of membranes and pitocin Delivery monitor: external FHT and external uterine Route of delivery: Episiotomy Description: midline L&D Laceration Description: perineal - 3rd degree Delivery repair: Vicryl Estimated blood loss (mL): 400 Anesthesia type: Epidural Disposition: floor Infant Delivery date: 02/18/25 Gender: female presentation: vertex Placental delivery description: Spontaneous cord description: 3 Vessels and Nuchal Cord
[2025-02-19] VITALS (55 sets, daily range): BP systolic 118–126; BP diastolic 74–92; PULSE 84–156; TEMP 36.6–36.8; O2SAT 98
[2025-02-19] MEDS: IBUPROFEN 600 MG TABLET PO ×2 (01:50→08:20)
[2025-02-19] MEDS: BENZOCAINE/MENTHOL 85 GRAM SPRAY BOTTLE 1 APPLIC TOPICAL (01:51)
[2025-02-19] MEDS: GLYCERIN/WITCH HAZEL PADS 1 PAD TOPICAL (01:51)
[2025-02-19 06:29] LABS: Hematocrit 24.9 % (36.0-48.0); Hemoglobin 8.6 g/dL (12.0-16.0); Immature Granulocytes Abs Auto 0.12 10^3/uL (0.00-0.03); Immature Granulocytes Pct Auto 0.9 % (0.0-0.5); Lymphocytes Absolute Auto 1.8 10^3/uL (1.2-3.8); Mean Corpuscular HGB Conc 34.5 g/dL (29.9-35.2); Mean Corpuscular Hemoglobin 31.6 pg (26.7-34.0); Mean Corpuscular Volume 91.5 fL (81.0-99.0); Platelet Count 131 10^3/uL (150-450); Red Blood Count 2.72 10^6/uL (4.20-5.40); White Blood Count 13.2 10^3/uL (4.0-11.0)
[2025-02-19] MEDS: DOCUSATE SODIUM 100 MG CAPSULE PO ×2 (08:20→21:06)
--- NOTE | 2025-02-19 08:40 | P.OBPN_ITS ---
OB - PN: Subj Subjective Patient comments: no complaints [place] status: doing well feeding status: exclusively Exam Constitutional Vital Signs, click to edit/add: Last Vital Signs Temp 98.5 F 02/18/25 13:58 Pulse 113 H 02/19/25 04:40 Resp 18 02/19/25 04:40 BP 111/68 02/18/25 23:29 Pulse Ox 100 02/18/25 20:30 O2 Del Method Room Air 02/18/25 23:30 Documenting provider has reviewed patient's vital signs: yes Common normals: no apparent distress General appearance: cooperative, comfortable, well kempt and well developed Orientation/consciousness: Yes awake, Yes oriented to person, Yes oriented to place and Yes oriented to time HENMT Common normals: normocephalic Head and scalp: normal to inspection Eye Common normals: EOMs intact bilaterally General eye: normal appearance of both eyes Neck & C-Spine Common normals: full ROM General: normal visual inspection Lymph Lymphatic: no lymphadenopathy noted Chest Common normals: inspection of chest normal Respiratory Common normals: normal respiratory effort Effort & inspection: able to speak in complete sentences Auscultation: clear to auscultation bilaterally Cardio Common normals: regular rate and regular rhythm Rate: regular rate Rhythm: regular rhythm GI Common normals: Normal to inspection, nondistended, normoactive bowel sounds present Inspection: normal to inspection Auscultation: normoactive bowel sounds Palpation: soft Common normals: no CVA tenderness Back & Pelvis Common normals: no CVA tenderness Extremity Common normals: normal to inspection Neuro Common normals: oriented x3 Sensorium/orientation: awake, alert, oriented to person, oriented to place and oriented to time Psych Common normals: mental status grossly normal, thought process normal, cooperative, affect normal, speech normal, activity/motor behavior normal, denies hallucinations, denies homicidal ideation and denies suicidal ideation Attitude: calm Activity/motor behavior: appropriate eye contact Speech: normal speech Thought process: normal thought process Thought content: normal thought content Results Labs Labs: Short CBC 02/19/25 Range/Units 06:20 WBC 13.2 H (4.0-11.0) 10^3/uL Hgb 8.6 L (12.0-16.0) g/dL Hct 24.9 L (36.0-48.0) % Plt Count 131 L (150-450) 10^3/uL OB - PN: A/P Plan - Vaginal Delivery day: 1 Plan: routine care Time Spent with Patient Time: Total time spent is greater than 50% in coordination of care (as documented) at patient's floor/unit and/or counseling patient: Total time spent with greater than 50% in coordination of care (as documented) at patient's floor/unit and/or counseling patient: less than 15 minutes
--- NOTE | 2025-02-19 08:50 | PC.NURSE ---
Up to BR, telemetry discontinued pt up to BR and voids, ice pack applied, perineum swollen, stable on feet without dizziness and returns to bed, 2+ edema from feet to thighs
[2025-02-19] MEDS: FERROUS SULFATE 325 MG TABLET PO ×2 (09:05→21:06)
[2025-02-19] MEDS: IBUPROFEN 400 MG TABLET 800 MG PO ×2 (14:06→23:34)
[2025-02-20] MEDS: IBUPROFEN 400 MG TABLET 800 MG PO ×2 (06:47→15:37)
[2025-02-20 08:03] VITALS: BP 107/73
[2025-02-20 08:05] VITALS: TEMP 36.6
[2025-02-20] MEDS: FERROUS SULFATE 325 MG TABLET PO (08:08)
[2025-02-20] MEDS: DOCUSATE SODIUM 100 MG CAPSULE PO (08:08)
--- NOTE | 2025-02-20 08:38 | P.OBPN_ITS ---
OB - PN: Subj Subjective Patient comments: no complaints and pain well controlled [place] status: doing well Exam Constitutional Vital Signs, click to edit/add: Last Vital Signs Temp 97.9 F 02/19/25 21:45 Pulse 120 H 02/19/25 21:45 Resp 18 02/19/25 21:45 BP 126/87 02/19/25 21:45 Pulse Ox 98 02/19/25 21:45 O2 Del Method Room Air 02/19/25 21:45 Documenting provider has reviewed patient's vital signs: yes Common normals: no apparent distress Respiratory Common normals: normal respiratory effort and clear to auscultation bilaterally Cardio Common normals: regular rate and regular rhythm GI Common normals: Normal to inspection, nondistended, normoactive bowel sounds present Extremity Common normals: no clubbing, cyanosis or edema and no calf tenderness OB - PN: A/P Assessment and Plan (1) Preeclampsia: Plan - Vaginal Delivery day: 2 Plan: routine care, discharge home and follow up 6 weeks Time Spent with Patient Time: Total time spent is greater than 50% in coordination of care (as documented) at patient's floor/unit and/or counseling patient: Total time spent with greater than 50% in coordination of care (as documented) at patient's floor/unit and/or counseling patient: less than 15 minutes
== END 2025-02-20 16:04 | disposition home or self-care (01) | DRG 768 ==
LOC: FBCO 18:45 → FBC 18:45
PROVIDERS: Admitting Provider Obstetrics & Gynecology; Visit Provider Obstetrics & Gynecology
DX: O14.94 Unspecified pre-eclampsia, complicating childbirth (principal); Z37.0 Single live birth; O69.81X0 Labor and delivery complicated by cord around neck, without compression, not applicable or unspecified; O70.20 Third degree perineal laceration during delivery, unspecified; Z3A.38 38 weeks gestation of pregnancy; O99.824 Streptococcus B carrier state complicating childbirth; Z87.440 Personal history of urinary (tract) infections
CPT/HCPCS: 36415; 59025; 59050; 59410; 80307; 82565; 82570; 84156; 84450; 84460; 84520; 84550; 85025; 85027; 85384; 85610; 85730; 86850; 86900; 86901; 93005; J0290; J1885; J2795

== ENCOUNTER 2025-02-24 11:03 | Outpatient (OUT) | payer OTHER, SELFPAY ==
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
--- OUTSIDE RECORDS SUMMARY | 2025-02-24 11:05 | XMS_ITS | Encounter Summary ---
Author Organization [facility] Address [address] [place] [address] Care Team Providers Care Double End Trimmer Name Role Phone Unavailable Primary Care Provider Unavailabl e Encounter Details DateTypeDepartmentCare Team (Latest Contact Info)Crskiejfeam30/14/2025amboo flowsheet [facility] [address] [address] Layo Courtney DO [address] Rose Hernandez, [facility] Social History Tobacco UseTypesPacks/DayYears UsedDateSmoking Tobacco: NeverAlcohol UseStandard Drinks/WeekCommentsYes0 (1 standard drink = 0.6 oz pure alcohol)Beer 1-2 times per monthEstimated Date of YhypkkgdEztthgzlNal76/29/2025Based on UltrasoundSex and Gender InformationValueDate RecordedSex Assigned at BirthNot on fileLegal LxlHqoqcx66/01/2023 8:34 PM EDTGender IdentityNot on fileSexual OrientationNot on filedocumented as of this encounter Plan of Treatment Not on file documented as of this encounter Visit Diagnoses Not on filedocumented in this encounter
--- OUTSIDE RECORDS SUMMARY | 2025-02-24 11:05 | XMS_ITS | Encounter Summary ---
Author Organization [facility] Address [address] [place] [address] Care Team Providers Care Salon Customer Experience Specialist Name Role Phone Unavailable Primary Care Provider Unavailabl e Encounter Details DateTypeDepartmentCare Team (Latest Contact Info)Rcxssysqvtv83/20/2025bstract [facility] [address] [place] [address] [place] [id number] Emilia Donahue MA Social History Tobacco UseTypesPacks/DayYears UsedDateSmoking Tobacco: NeverAlcohol UseStandard Drinks/WeekCommentsYes0 (1 standard drink = 0.6 oz pure alcohol)Beer 1-2 times per monthEstimated Date of BpvsfworXjkzsuwvJgv69/29/2025Based on UltrasoundSex and Gender InformationValueDate RecordedSex Assigned at BirthNot on fileLegal PrsRrlgbp42/01/2023 8:34 PM EDTGender IdentityNot on fileSexual OrientationNot on filedocumented as of this encounter Plan of Treatment Not on file documented as of this encounter Visit Diagnoses Not on filedocumented in this encounter
--- OUTSIDE RECORDS SUMMARY | 2025-02-24 11:06 | XMS_ITS | Clinical Summary ---
Author Organization [facility] Address [address] [place] [address] Phone Care Team Providers Care Sales Service Coordinator Name Role Phone Allyssa Robles RN Unavailable Unavailable Allergies Active AllergyReactionsCriticalityNoted AkbtYylzarmjIxqqwNrgdTnd03/09/2024Nickel PjdoDcd1912/11/2023 Medications MedicationSigDispense QuantityRefillsLast FilledStart DateEnd DateStatus anzwgcop47-injn-xbaws-pjueb3 29-1-400 mg combo pack,tablet and cap,DR Take by mouth.Active progesterone 50 mg/mL injection Indications:Female infertilityDraw up and inject 1.5 mL (75 mg) into the muscle at the same time each morning as directed per provider. 150 mL 05/03/2024 3:33 PM EST/5Active estradiol (Estrace) 2 mg tablet Indications:Female infertilityInsert 1 tablet (2 mg) into the vagina 2 times a day./ctive estradiol (Estrace) 2 mg tablet Indications:Female infertilityTake 3 tablets (6 mg) by mouth once daily. 90 tablet 11006/19/661126/ctive lidocaine-prilocaine (Emla) 2.5-2.5 % cream Indications:Female infertilityApply topically once daily. Apply to treatment area 1 hour prior to injection. 30 g 3:33 PM ESTExpired Additional Information Patient not taking.Reported on 03/22/2024 Active Problems ProblemNoted DateDiagnosed DateFemale fnnvhiuvhix87/14/2024PONV (postoperative nausea and vomiting)4CommentsYes Family History Medical HistoryRelationNameCommentsPolycystic kidney diseaseBrotherPolycystic kidney diseaseMotherRelationNameStatusCommentsBrotherMother Social History Tobacco UseTypesPacks/DayYears UsedDateSmoking Tobacco: NeverSmokeless Tobacco: Never Tobacco Cessation:Counseling Given: No Alcohol UseStandard Drinks/WeekCommentsNot Currently0 (1 standard drink = 0.6 oz pure alcohol)OccassionallyCommentsYesSex and Gender InformationValueDate RecordedSex Assigned at BirthNot on fileLegal YrlJnkjof90/05/2024 8:54 AM EDT Gender IdentityNot on fileSexual OrientationNot on file Last Filed Vital Signs Vital SignReadingTime TakenCommentsBlood Pgiyqzda51/6203/22/2024 10:45 AM EST Kgxfl595503/22/2024 10:45 AM QUCWgjrrhnjyeb89.3 ??C (97.3 ??F)03/22/2024 9:45 AM ESTRespiratory Jmgt629205/22/2023 10:45 AM ESTOxygen Dbnkkwijwu863%03/22/2024 10:45 AM ESTInhaled Oxygen Concentration--Fdmmoj67.9 kg (165 lb 2 oz)03/22/2024 8:29 AM OOCWygunk311 cm (5' 3 )03/22/2024 8:29 AM ESTBody Mass Index29.25 03/22/2024 8:29 AM EST Plan of Treatment Health MaintenanceDue DateLast DoneCommentsLipid Panel1997MMR Vaccines (1 of 1 - Standard series)1998Hepatitis B Vaccines (1 of 3 - 19+ 3-dose series)2016HPV/Dqtqja3312/11/2018DTaP/Tdap/Td Vaccines (2 - Td or Tdap) Influenza Vaccine (#1)2024HPV Vaccines (1 - 3-dose standard series)2024OVID-19 Vaccine (1 - season)2025Yearly Adult Pwtpohbu86/13/201738/ervical Cancer Hnyixirin81/12/2027Pap Smear Zoster Vaccines (1 of 2)8012/20/2009RSV High Risk: (Elderly (60+) or Population) (1 - 1-dose 75+ series)2072 Meningococcal VaccineAged Out12/20/2009No longer eligible based on patient's age to complete this topicHIV NppqwjhxxFdowdmqgg33/09/2024Hepatitis C Screening Hzvxrimrj05/09/2024HIB VaccinesAged OutNo longer eligible based on patient's age to complete this topicHepatitis A VaccinesAged OutNo longer eligible based on patient's age to complete this topicIPV VaccinesAged OutNo longer eligible based on patient's age to complete this topicPneumococcal Vaccine: Pediatrics and At- Risk Adult PatientsAged OutNo longer eligible based on patient's age to complete this topicRotavirus VaccinesAged OutNo longer eligible based on patient's age to complete this topic Procedures Procedure NamePriorityDate/TimeAssociated DiagnosisCommentsHEPATITIS C ANTIBODY Gfsamsy6512/11/2023 10:21 AM EDT Screening for STDs (sexually transmitted diseases) HIV 1/2 ANTIGEN/ANTIBODY SCREEN WIH REFLEX TO BSSACXJHLKWDEpmnhzy58/09/2024 10:21 AM EDT Screening for STDs (sexually transmitted diseases) from Last 3 Months or Most Recently Relevant to Health Maintenance Results * Hepatitis C Antibody (2023 10:21 AM EDT)ComponentValueRef RangeTest MethodAnalysis TimePerformed AtPathologist SignatureHepatitis C Anitbody NonreactiveNonreactive LAB IMMUNOASSAY METHOD 2023 7:11 PM EDTLAN[facility] LABComment:Results from patients taking biotin supplements or receiving high-dose biotin therapy should be interpreted with caution due to possible interference with this test. Providers may contact their locallaboratory for further information.Specimen (Source)Anatomical Location / LateralityCollection Method / VolumeCollection TimeReceived TimeBloodVenous blood specimen / UnknownVenipuncture / Tpdqsim0512/11/2023 10:21 AM EDT2023 10:21 AM EDT Narrative Authorizing ProviderResult TypeResult StatusTrish Sun SECOND TIME WORKER-[facility] BLOOD ORDERABLESFinal ResultPerforming OrganizationAddressCity/State/ZIP CodePhone Number [facility] [address] [place] [phone] * HIV 1/2 Antigen/Antibody Screen with Reflex to Confirmation (2023 10:21 AM EDT)ComponentValueRef RangeTest MethodAnalysis TimePerformed AtPathologist SignatureHIV 1/2 Antigen/Antibody Screen with Reflex to Confirmation NonreactiveNonreactive LAB IMMUNOASSAY METHOD 2023 7:37 PM EDTLANCASTER [facility] LABSpecimen (Source)Anatomical Location / Laterality Collection Method / VolumeCollection TimeReceived TimeBloodVenous blood specimen / UnknownVenipuncture / Jlwpwuc8612/11/2023 10:21 AM EDT2023 10:21 AM EDT Narrative [facility] - 2023 7:37 PM EDT HIV Ag/Ab screen is performed using the Siemens Able ImagingllVersus HIV Ag/Ab Combo assay which detects the presence of HIV p24 antigen as well as antibodies to HIV-1 (Group M and O) and HIV-2. No laboratory evidence of HIV infection. If acute HIV infection is suspected, consider testing for HIV RNA by PCR (viral load). Authorizing ProviderResult TypeResult StatusTrish Sun SECOND TIME WORKER-[facility] BLOOD ORDERABLESFinal ResultPerforming OrganizationAddressty/State/ZIP CodePhone Number [facility] [address] [place] [phone] from Last 3 Months or Most Recently Relevant to Health Maintenance Insurance * Guarantor: Chidi Garcia TypeRelation to PatientDate of BirthPhone Billing AddressPersonal/VqdqjiQmzg25/[birth year][id number] [id number] * Guarantor: Chidi Garcia TypeRelation to PatientDate of BirthPhone Billing DatpkcbWCEUpxj54/[birth year]/[id number] [address] Care Teams Team MemberRelationshipSpecialtyStart DateEnd Allyssa Robles RN Registered NurseReproductive Endocrinology and Infertility12/25/23
--- OUTSIDE RECORDS SUMMARY | 2025-02-24 11:06 | XMS_ITS | Clinical Summary ---
Author Organization [facility] Address [address] [place] [address] Care Team Providers Care Wash Tank Tender Name Role Phone Unavailable Primary Care Provider Unavailabl e Allergies Active AllergyReactionsCriticalityNoted DateCommentsAzithromycinUnknown 03/16/2023 Other Reaction(s): Unknown EoeehJqciVal13/13/2023 Other Reaction(s): Itching NickelItching,BzsgCku0703/16/2023 Medications MedicationSigDispense QuantityRefillsLast FilledStart DateEnd DateStatus MV-Min-Fe Fum-FA-DHA ( 1 PO) Take 1 each by mouth DailyActive Active Problems Estimated Date of UxlepnjeGjnyvzunIwd29/29/2025Based on Ultrasound No known active problems Encounters DateTypeDepartmentCare VhblHgagtvgxfpt92/20/2025bstract [facility] ZACARIAS [address] [place] [address] Emilia Donahue [place] 02/14/2025 2:30 PM EDTRoutine NOMKenisha ZACARIAS [address] [facility] [place] [phone] Rula Courtney, Third trimester ([facility]); 37 weeks gestation of ([facility])02/14/2025amboo flowsheet [facility] David [address]ACARIAS [address] [place] [address] Rula Courtney DO 02/09/2025bstract [facility] [address]ACARIAS [address] [place] [address] Rula Courtney DO 02/07/2025 1:40 PM EDTRoutine [facility] [address] [place] [phone] Maria M Guerrero NP Third trimester ([facility]); 36 weeks gestation of ([facility])02/07/2025linisync Result Encounter NOMS External Department Unsolicited Sherwin, Rula, DO 02/07/2025amboo flowsheet [facility] [address] [phone] Maria M Guerrero, MARGARITO 02/01/2025linisync Result Encounter NOMS External Department Unsolicited Sherwin, Rula, DO 02/01/2025linisync Result Encounter NOMS External Department Unsolicited Sherwin, Rula, DO 01/31/2025 1:50 PM EDTRoutine [facility] David OBGYIrene [place] [phone] Marai M Guerrero, MARGARITO Third trimester ([facility]); 35 weeks gestation of ([facility]); Encounter for in vitro qtvkdtcuarekg52/30/2025amboo flowsheet [facility] [place] [facility] [address] [place] [phone] Maria M Guerrero, MARGARITO 01/25/2025linisync Result Encounter NOMS External Department Unsolicited Sherwin, Rula, DO 01/24/2025linisync Result Encounter NOMS External Department Unsolicited Sherwin, Rula, DO 01/18/2025linisync Result Encounter NOMS External Department Unsolicited Sherwin, Rula, DO 01/16/2025 2:50 PM EDTRoutine [place] [phone] Sherwin, Rula, DO 33 weeks gestation of ([facility]); Third trimester ([facility]); Group B streptococcal infection; resulting from in vitro fertilization in first trimester ([facility]) 09/15/2025Bamboo flowsheet [facility] David TIPTONGYIrene Vicente [facility] [place] [phone] Rula Courtney, 5Clinisync Result Encounter NOMS External Department Unsolicited Rula Courtney, 01/03/2025 10:00 AM EDTRoutine [facility] David Vicente [facility] [phone] Rula Courtney, Third trimester ([facility]); 31 weeks gestation of ([facility]); resulting from in vitro fertilization in third trimester ([facility]) 01/03/2025amboo flowsheet [facility] David Vicente [facility] [phone] Rula Courtney, 12/21/2024Telephone NOMKenisha Vicente [facility] [place] [address] Marilia Elder [place] 12/19/2024 10:00 AM EDTRoutine [facility] David [address] [phone] Rula Courtney, 29 weeks gestation of ([facility]); Third trimester ([facility]); Leukocytes in urine; Other microscopic uiwilmqhn01/18/2025 9:30 AM EDTAncillary Procedure [facility] David Vicente [facility] [place] [phone] resulting from in vitro fertilization in second trimester ([facility]) 12/06/2024 8:30 AM EDTRoutine [facility] David Vicente [facility] [place] [place] [phone] Rula Courtney, 27 weeks gestation of ([facility]); Second trimester ([facility]); resulting from in vitro fertilization in second trimester ([facility]) 5Clinisync Result Encounter NOMS External Department Unsolicited Rula Courtney, DO 12/06/2024amboo flowsheet [facility] [place] [facility] [address] [place] [phone] Rula Courtney, DO 11/28/2024Telephone [facility] [place] [facility] [address] [place] [address] Rula Courtney, DO 11/26/2024linisync Result Encounter NOMS External Department Unsolicited Rula Courtney, DO from Last 3 Months Family History Medical HistoryRelationNameCommentsMelanomaNeg HxRelationNameStatusComments FatherAliveMotherAlive Social History Tobacco UseTypesPacks/DayYears UsedDateSmoking Tobacco: Never Tobacco Cessation:Counseling Given: Not Answered Alcohol UseStandard Drinks/WeekCommentsYes0 (1 standard drink = 0.6 oz pure alcohol)Beer 1-2 times per monthEstimated Date of DeliveryCommentsYes 5Based on UltrasoundSex and Gender InformationValueDate RecordedSex Assigned at BirthNot on fileLegal SvkOhbrbd44/01/2023 8:34 PM EDTGender Identity Not on fileSexual OrientationNot on file Last Filed Vital Signs Vital SignReadingTime TakenCommentsBlood Sgjxlhmc360/8202/14/2025 2:44 PM EDT Pulse--Temperature--Respiratory Rate--Oxygen Saturation--Inhaled Oxygen Concentration--Kow[place]230 kg (237 lb 8 oz)02/14/2025 2:44 PM FSGLgdjxf727 cm (5' 3 )09/17/2022 12:00 PM EDTBody Mass Index42.0709/17/2022 12:00 PM EDT Plan of Treatment Not on file Procedures Procedure NamePriorityDate/TimeAssociated DiagnosisCommentsPOCT URINALYSIS XYKAKEYWKafqxks85/14/2025 2:52 PM EDT Third trimester ([facility]) CULTURE, GROUP B STREP WITH ETZXYKMAGWLGUXntvnky67/08/2025 8:35 AM EDT Third trimester ([facility]) US OB BPP W NON-ZRQJSL5102/07/2025 4:05 PM EDT POCT URINALYSIS GTLTUPFCIjwzpfv47/07/2025 1:52 PM EDT 36 weeks gestation of ([facility]) US OB BPP W NON-DERAQE8402/01/2025 9:21 AM EDT US OB WBWWPH6902/01/2025 9:21 AM EDT POCT URINALYSIS ONUZVKNEQnnyzrc25/30/2025 2:25 PM EDT 35 weeks gestation of ([facility]) US OB BPP W NON-MNXTCI1501/25/2025 6:24 PM EDT US OB BPP W NON-BWMMJT8201/24/2025 7:55 PM EDT US OB BPP W NON-IZXEXI0401/18/2025 9:02 AM EDT POCT URINALYSIS HBKUQJGZXcjjxpf17/15/2025 3:20 PM EDT 33 weeks gestation of ([facility]) Third trimester ([facility]) US OB BPP W NON-YKCTYE4501/10/2025 9:07 PM EDT POCT URINALYSIS VVBDLGKIEuolgrx84/02/2025 10:22 AM EDT Third trimester ([facility]) 31 weeks gestation of ([facility]) URINARY TRACT INFECTION (HTRX)Wbhmbmt8412/19/2024 11:28 AM EDT POCT URINALYSIS RIJXVNRWQamexsq36/18/2025 10:11 AM EDT 29 weeks gestation of ([facility]) Third trimester ([facility]) US OB FOLLOW UP TRANSABDOMINAL MVKYCKUWMekftjv22/18/2025 9:56 AM EDT resulting from in vitro fertilization in second trimester ([facility]) GLUCOSE TOLERANCE 3 BKYYFvtazmu63/05/2025 11:26 AM EDT POCT URINALYSIS WVKLTABJYodbxfb80/05/2025 8:40 AM EDT 27 weeks gestation of ([facility]) Second trimester ([facility]) GLUCOSE 1 MLYUDjuckwj58/26/2025 10:03 AM EDT ALL CBC WITH AUTO AJMURqmlmez50/26/2025 10:03 AM EDT from Last 3 Months Results * (ABNORMAL) POCT urinalysis dipstick manually resulted (02/14/2025 2:52 PM EDT) Only the most recent of7 resultswithin the time period is included. ComponentValueRef RangeTest MethodAnalysis TimePerformed AtPathologist Signature Color, UAYellowClarity, UAClearGlucose, UANegativeNegative - 2000(110) ++++ mg/dLBilirubin, UANegativeNegative - 4(70) +++ mg/dLKetones, UANegativeNegative - 160(16) ++++ mg/dLSpec Grav, UA1.0151 - 1.03Blood, UANegativeNegative - 50 Jose/mcLpH, UA6.05 - 9Protein, UANegativeNegative - 2000(20) ++++ mg/dL Urobilinogen, UA0.20.2 - 12 mg/dLLeukocytes, UAPositiveNegative - 500+++ Onel/mcL Comment:2+Nitrite, UANegativeNegative - PositiveSpecimen (Source)Anatomical Location / LateralityCollection Method / VolumeCollection TimeReceived TimeUrine 02/14/2025 2:52 PM EDT Narrative Authorizing ProviderResult TypeResult StatusCorey Sherwin DOPOINT OF CARE TEST ENTER/EDIT ORDERABLESFinal Result * CULTURE, GROUP B STREP WITH SUSCEPTIBLITY (02/08/2025 8:35 AM EDT) Narrative Authorizing ProviderResult TypeResult StatusKristina Cesar NPLAB BLOOD ORDERABLESFinal ResultPerforming OrganizationAddressCity/State/ZIP CodePhone Number EXTERNAL LAB * US OB BPP W NON-STRESS (02/07/2025 4:05 PM EDT) Only the most recent of6 resultswithin the time period is included. Anatomical RegionLateralityModalityOtherSpecimen (Source)Anatomical Location / LateralityCollection Method / VolumeCollection TimeReceived Time02/07/2025 4:05 PM EDT Narrative 02/07/2025 4:07 PM EDT [facility] ?[address] ? [place] [address] ? Ultrasound Report ? Signed ? Patient: OLENA GARCIA ?MR#: [id number] ?? : 1995 ?Acct:[id number] ?? Age/Sex: 29 / F ?ADM Date: 02/07/25 ?? Loc: [facility] ??254-1 ? Attending Dr: Rula Courtney D.O. ? Ordering Physician: Rula Courtney D.O. ?? Date of Service: 02/07/25 ?? Procedure(s): US OB BPP w non-stress ?? Accession Number(s): [id number] ? cc: Rula Courtney D.O.; Physician,Non-Staff M.D. ? [facility] ? [address] [facility] ? [place] [address] ? Patient Name: ?? OLENABETH VELASQUEZRIAZ ? MRN: [facility]:[id number] ? date: 1995 ?Sex: F ?? Assigned Patient Location: [facility] ?? Current Patient Location: [facility] ?? Accession/Order Number: [id number] ?? Exam Date: 02/07/2025 ??14:45 ?Report Date: 02/07/2025 ??16:05 ? At the request of: ?? RULA ??SHERWIN ??DO ? Procedure: ??US OB BPP w non-stress ? Ultrasound biophysical profile ? INDICATION: IVF ? FINDINGS: The research and development tester reports a BPP of 8 out of 8 ?LONNY is normal at 10.6 ?? cm. ?? heart rate 147. ??Heterogeneous appearance of the placenta ?? hypoechoic focus measuring 2.4 x 1.9 x 1.6 cm in size. ? US/US OB BPP w non-stress ?? IMPRESSION: BPP 8 out of 8. ? Impression dictated by: Bernabe Romero M.D. ??02/07/2025 4:05 PM ? Dictation Location: RADIO-PC-29 ? Electronically authenticated by: [id number] ??Y ?? Date: 02/07/2025 ??16:05 ? Dictated By: ?Bernabe Romero M.D. ? Signed By: ?02/07/25 1607 ? DD/ 1605 ? TD/TT: ? Sample Sawyer: Procedure Note Radiology, Radiologist, MD - 02/07/2025 [place] [address] Ultrasound Report Signed Patient: OLENA GARCIA RMR#: [id number] : 1995Acct:[id number] Age/Sex: 29 / FADM Date: 02/07/25 Loc: [facility] 254-[address]: Rula Courtney D.O. Ordering Physician: Rula Courtney D.O. Date of Service: 02/07/25 Procedure(s): US OB BPP w non-stress Accession Number(s): [id number] cc: Rula Courtney D.O.; Physician,Non-Staff MDenisa The [place] [address] Patient Name: OLENA GARCIA MRN: [facility]:[id number] date: 1995 Sex: F Assigned Patient Location: [facility] Current Patient Location: [facility] Accession/Order Number: [id number] Exam Date: 02/07/2025 14:45 Report Date: 02/07/2025 16:05 At the request of: RULA COURTNEY DO Procedure: US OB BPP w non-stress Ultrasound biophysical profile INDICATION: IVF FINDINGS: The research and development tester reports a BPP of 8 out of 8 LONNY is normal at10.6 cm. heart rate 147. Heterogeneous appearance of the placenta hypoechoic focus measuring 2.4 x 1.9 x 1.6 cm in size. US/US OB BPP w non-stress IMPRESSION: BPP 8 out of 8. Impression dictated by: Bernabe Romero M.D. 02/07/2025 4:05 PM Dictation Location: [facility] Electronically authenticated by: [id number] Y Date: 6:05 Dictated By: Bernabe Romero M.D. Signed By:02/07/251606 DD/ 04 TD/TT: Sample Sawyer: Authorizing ProviderResult TypeResult StatusCorey Sherwin HEATONLINISYALBERTO IMAGINGFinal Result * US OB GROWTH (02/01/2025 9:21 AM EDT)Anatomical RegionLateralityModalityOther Specimen (Source)Anatomical Location / LateralityCollection Method / Volume Collection TimeReceived Time02/01/2025 9:21 AM EDT Narrative 02/01/2025 9:24 AM EDT [facility] ?[address] ? [place] [address] ? Ultrasound Report ? Signed ? Patient: OLENA GARCIA ?MR#: [id number] ?? : 1995 ?Acct:[id number] ?? Age/Sex: 29 / F ?ADM Date: 01/31/25 ?? Loc: US ? Attending Dr: Rula Courtney D.O. ? Ordering Physician: Rula Courtney D.O. ?? Date of Service: 01/31/25 ?? Procedure(s): US OB growth ?? Accession Number(s): [id number] ? cc: Rula Courtney D.O.; Physician,Non-Staff M.D. ? [facility] ? [address] ? [place] [address] ? Patient Name: ?? OLENA Gt EVARIAZ ? MRN: [facility]:[id number] ? date: 1995 ?Sex: F ?? Assigned Patient Location: [facility] ?? Current Patient Location: LAB ?? Accession/Order Number: [id number] ?? Exam Date: 01/31/2025 ??15:22 ?Report Date: 02/01/2025 ??09:21 ? At the request of: ?? RULA ??SHERWIN ??DO ? Procedure: ??US OB BPP w non-stress ? CLINICAL DATA: resulting from IVF ? ULTRASOUND OB GROWTH ? COMPARISON: None ? There is a single live intrauterine gestation in cephalic presentation. ??There ?? is cardiac and somatic activity with heart rate of 129 bpm. ??The ?? amniotic fluid index measures 11.6 cm which is in low-normal range. ??There is ?? an anterior placenta. ??The following measurements were obtained: ?? Right parietal diameter ? 9.2 cm ?? 37 weeks 2 days ?89% ?? Head circumference ? 33.6 cm ?? 38 weeks 3 days ? 81% ?? Abdominal circumference ?32.8 cm ?? 36 weeks 5 days ? 82% ?? Femur length ?7.2 cm ?? 36 weeks 6 days ?72% ?? The composite ultrasound age based on these measurements is 37 weeks 0 days ?? +/- 1 week 0 days. ??The estimated date of delivery is 02/21/2025. ? weight is estimated at 6 lbs. 13 oz. +/- 1 lb. 0 oz. ??(81%). ? US/US OB growth ?? IMPRESSION: ? SINGLE LIVE INTRAUTERINE GESTATION WITH ULTRASOUND AGE OF 37 WEEKS 0 DAYS. ? BIOPHYSICAL PROFILE: ? COMPARISON: 01/25/2025 ? FINDINGS: ? TONE: 1 or more episodes of activity extension and flexion of ?? extremity or opening and closing of the hand ?[Y] ? 2/2 ?? GROSS BODY MOVEMENTS: 3 or more discrete body or limb movements ?[Y] ? 2/2 ?? BREATHING MOVEMENTS: 1 or more episodes of breathing lasting at ?? least 30 seconds ? [Y] ? 2/2 ?? LONNY: A single deepest vertical pocket of amniotic fluid greater than 2 cm ? [Y] ? 2/2 ?LONNY: 11.6 cm ? Total score: ? 8/8 ? IMPRESSION: ? NORMAL BIOPHYSICAL PROFILE ? Impression dictated by: Mariela Toledo M.D. ??02/01/2025 9:21 AM ? Dictation Location: RADIO-PC-02 ? Electronically authenticated by: [id number] ??Y ?? Date: 02/01/2025 ??09:21 ? Dictated By: ?Mariela Toledo M.D. ? Signed By: ?02/01/25 0924 ? DD/ 0921 ? TD/TT: ? Sample Sawyer: Procedure Note Radiology, Radiologist, MD - 02/01/2025 [place] [address] Ultrasound Report Signed Patient: OLENA GARCIA RMR#: [id number] : 1995Acct:[id number] Age/Sex: 29 / FADM Date: 01/31/25 Loc: US Attending Dr: Rula Courtney D.O. Ordering Physician: Rula Courtney D.O. Date of Service: 01/31/25 Procedure(s): US OB growth Accession Number(s): [id number] cc: Rula Courtney D.O.; Physician,Non-Staff MDenisa The [place] [address] Patient Name: OLENA GARCIA MRN: [id number] date: 1995 Sex: F Assigned Patient Location: [facility] Current Patient Location: LAB Accession/Order Number: [id number] Exam Date: 01/31/2025 15:22 Report Date: 02/01/2025 [...] Toledo M.D. 02/01/2025 9:21 AM Dictation Location: [place] [address] Electronically authenticated by: [id number] Y Date: 9:21 Dictated By: Mariela Toledo M.D. Signed By:02/01/25923 DD/ 0 TD/TT: Sample Sawyer: Authorizing ProviderResult TypeResult StatusCorey Sherwin DOCLINISYNC IMAGINGFinal Result * (ABNORMAL) URINARY TRACT INFECTION (HTRX) (12/19/2024 11:28 AM EDT)Component ValueRef RangeTest MethodAnalysis TimePerformed AtPathologist Signature ACINETOBACTER IHPXKGBA207.961 - 24.689 ppm12/20/2024 7:51 AM EDTHealthTrackRx at LabPortACINETOBACTER BAUMANIINot Jbqhzssn92.961 - 24.689 ppm12/20/2024 7:51 AM EDTHealthTrackRx at LabPortCITROBACTER HWUDSCXB728.000 - 32.015 ppm 12/20/2024 7:51 AM EDTHealthTrackRx at LabPortCITROBACTER FREUNDIINot Detected 23.000 - 32.015 ppm12/20/2024 7:51 AM EDTHealthTrackRx at LabPortENTEROBACTER AEROGENES, OCUIDSA243.000 - 32.290 ppm12/20/2024 7:51 AM EDTHealthTrackRx at LabPortENTEROBACTER AEROGENES, CLOACAENot Zkogvbpw36.000 - 32.290 ppm 12/20/2024 7:51 AM EDTHealthTrackRx at LabPortENTEROCOCCUS FAECALIS, FAECIUM0 26.000 - 33.043 ppm12/20/2024 7:51 AM EDTHealthTrackRx at LabPortENTEROCOCCUS FAECALIS, FAECIUMNot Bsvheqfs90.000 - 33.043 ppm12/20/2024 7:51 AM EDT [facility] at LabPortESCHERICHIA JVKR489.000 - 28.500 ppm12/20/2024 7:51 AM EDTHealthTrackRx at LabPortESCHERICHIA COLINot Lffvnpoz80.000 - 28.500 ppm 12/20/2024 7:51 AM EDTHealthTrackRx at LabPortKLEBSIELLA PNEUMONIAE, OXYTOCA0 23.000 - 31.865 ppm12/20/2024 7:51 AM EDTHealthTrackRx at LabPortKLEBSIELLA PNEUMONIAE, OXYTOCANot Gmamheuv96.000 - 31.865 ppm12/20/2024 7:51 AM EDT [facility] at LabPortMORGANELLA URSAUAHN531.961 - 24.689 ppm12/20/2024 7:51 AM EDTHealthTrackRx at LabPortMORGANELLA MORGANIINot Ediqrflp56.961 - 24.689 ppm12/20/2024 7:51 AM EDTHealthTrackRx at LabPortPROTEUS MIRABILIS, VULGARIS0 23.000 - 28.500 ppm12/20/2024 7:51 AM EDTHealthTrackRx at LabPortPROTEUS MIRABILIS, VULGARISNot Ifubguvs20.000 - 28.500 ppm12/20/2024 7:51 AM EDT [facility] at LabPortPSEUDOMONAS BKRLOPQQHK211.000 - 31.801 ppm12/20/2024 7:51 AM EDTHealthTrackRx at LabPortPSEUDOMONAS AERUGINOSANot Kethtxtt10.000 - 31.801 ppm12/20/2024 7:51 AM EDTHealthTrackRx at LabPortSTAPHYLOCOCCUS AUREUS0 26.000 - 31.595 ppm12/20/2024 7:51 AM EDTHealthTrackRx at LabPort STAPHYLOCOCCUS AUREUSNot Avlapaca35.000 - 31.595 ppm12/20/2024 7:51 AM EDT [facility] at LabPortSTREPTOCOCCUS AGALACTIAE (GROUP B STREP)30.017(A) 26.000 - 32.435 ppm12/20/2024 7:51 AM EDTHealthTrackRx at LabPortSTREPTOCOCCUS AGALACTIAE (GROUP B STREP)Detected(A)26.000 - 32.435 ppm12/20/2024 7:51 AM EDTHealthTrackRx at LabPortCANDIDA ALBICANS, PARAPSILOSIS, XGNOSKEQKR097.000 - 30.347 ppm12/20/2024 7:51 AM EDTHealthTrackRx at LabPortCANDIDA ALBICANS, PARAPSILOSIS, TROPICALISNot Siotkvbm47.000 - 30.347 ppm12/20/2024 7:51 AM EDT [facility] LabPortCANDIDA KZUGTMFY025.000 - 31.618 ppm12/20/2024 7:51 AM EDTHealthTrackRx at LabPortCANDIDA GLABRATANot Lwibacqw22.000 - 31.618 ppm 12/20/2024 7:51 AM EDTHealthTrackRx at LabPortCANDIDA AJOLGV621.000 - 30.873 ppm12/20/2024 7:51 AM EDTHealthTrackRx at LabPortCANDIDA KRUSEINot Detected 23.000 - 30.873 ppm12/20/2024 7:51 AM EDTHealthTrackRx at LabPortSERRATIA GHICJLTQFE603.000 - 31.581 ppm12/20/2024 7:51 AM EDTHealthTrackRx at LabPort SERRATIA MARCESCENSNot Twkyevuj80.000 - 31.581 ppm12/20/2024 7:51 AM EDT [facility] at LabPortSTREPTOCOCCUS PYOGENES (GROUP A STREP)019.961 - 24.689 ppm12/20/2024 7:51 AM EDTHealthTrackRx at LabPortSTREPTOCOCCUS PYOGENES (GROUP A STREP)Not Dehhkwlt54.961 - 24.689 ppm12/20/2024 7:51 AM EDT [facility] at LabPortSTAPHYLOCOCCUS EPIDERMIDIS, HAEMOLYTICUS, LUGDUNENSIS, SAPROPHYTICUS (OTHCK630.961 - 24.689 ppm12/20/2024 7:51 AM EDTHealthTrackRx at [facility]STAPHYLOCOCCUS EPIDERMIDIS, HAEMOLYTICUS, LUGDUNENSIS, SAPROPHYTICUS (URINANot Ijcdlqvg59.961 - 24.689 ppm12/20/2024 7:51 AM EDTHealthTrackRx at [facility] HospitalSTAPHYLOCOCCUS EPIDERMIDIS, HAEMOLYTICUS, LUGDUNENSIS, SAPROPHYTICUS (MYVNO746.961 - 24.689 ppm12/20/2024 7:51 AM EDTHealthTrackRx at [facility] STAPHYLOCOCCUS EPIDERMIDIS, HAEMOLYTICUS, LUGDUNENSIS, SAPROPHYTICUS (URINANot Zzdikumc69.961 - 24.689 ppm12/20/2024 7:51 AM EDTHealthTrackRx at [facility] Specimen (Source)Anatomical Location / LateralityCollection Method / Volume Collection TimeReceived JvanFcifx40/18/2025 11:28 AM EDT12/20/2024 1:37 AM EDT Narrative Authorizing ProviderResult TypeResult StatusCorey Sherwin DOLAB BLOOD ORDERABLES Final ResultPerforming OrganizationAddressCity/State/ZIP CodePhone Number [facility] [address] [place] [address] * US OB follow up transabdominal approach (12/19/2024 9:56 AM EDT)Anatomical RegionLateralityModalityBodyUltrasoundSpecimen (Source)Anatomical Location / LateralityCollection Method / VolumeCollection TimeReceived Time12/22/2024 8:05 AM EDT Narrative 12/22/2024 8:05 AM EDT EXAM: US OB FOLLOW UP TRANSABDOMINAL APPROACH HISTORY: ??Inconsistent size, IVF. COMPARISON: None available. TECHNIQUE: Two-dimensional transabdominal grayscale ultrasound imaging of the pelvis was performed. FINDINGS: Gestation: Single Presentation: ??Cephalic ?? Cardiac Activity: ??130 beats per minute Amniotic Fluid Index: ??19.5 cm MEASUREMENTS: BPD: ??7.7 cm ??EGA: ??31 weeks 0 days HC: ??27.6 cm ??EGA: ??30 weeks 1 days AC: ??25.8 cm ??EGA: ??30 weeks 0 days FL: ??6.0 cm ??EGA: ??31 weeks 2 days HC/AC Ratio: ??1.07 The gestational age by today's ultrasound is 30 weeks 4 days (+/- 15 days gestation). Estimated Weight: 1581 grams, +/- 237 grams ( 3 lb 8 oz). Weight Percentile for gestational age: ??65 % IMPRESSION: 1. Single, live intrauterine gestation 29 weeks, 5 ??days by LMP. Today's ultrasound measurements correlate with a gestational age of 30 weeks 4 days. Estimated weight is 1581 grams, +/- 237 grams ( 3 lb 8 oz) which correlates to 65 %. BROOKE by today's ultrasound is 02/23/2025. Interpreted by: Electronically signed by TOÑITO FRIEND II, ?? , PHD at 22-Dec-2024 08:03:51 AM [facility] Procedure Note Toñito Friend MD - [...] signed by TOÑITO FRIEND II, MD, PHD [id number] 08:03:51 AM [facility] Authorizing ProviderResult TypeResult StatusCorey Sherwin DOIMG OB US PROCEDURES Final Result * GLUCOSE TOLERANCE 3 HOUR (12/06/2024 11:26 AM EDT)ComponentValueRef RangeTest MethodAnalysis TimePerformed AtPathologist SignatureGLUCOSE TOLERANCE 3 HOUR mg/dLTBHComment: GLU FAST 90 (<95) Col: 12/06/24 1126 GLU 1HR 143 (<180) Col: 12/06/24 1235 GLU 2HR 132 (<155) Col: 12/06/24 1327 GLU 3HR 81 (<140) Col: 12/06/24 1432 Specimen (Source)Anatomical Location / LateralityCollection Method / Volume Collection TimeReceived Time12/06/2024 11:26 AM EDT12/06/2024 11:35 AM EDT Narrative JAMILA - 12/06/2024 3:13 PM EDT Authorizing ProviderResult TypeResult StatusCorey Sherwin DOLAB BLOOD ORDERABLES Final ResultPerforming OrganizationAddressCity/State/ZIP CodePhone Number JAMILA TB * (ABNORMAL) GLUCOSE 1 HOUR (11/26/2024 10:03 AM EDT)ComponentValueRef RangeTest MethodAnalysis TimePerformed AtPathologist SignatureGLUCOSE 1 [id number](H)<130 mg/dLTBHSpecimen (Source)Anatomical Location / LateralityCollection Method / VolumeCollection TimeReceived Time11/26/2024 10:03 AM EDT11/26/2024 10:04 AM EDT Narrative CLINISYNC - 11/26/2024 10:27 AM EDT Authorizing ProviderResult TypeResult StatusCorey Sherwin DOLAB BLOOD ORDERABLES Final ResultPerforming OrganizationAddressCity/State/ZIP CodePhone Number CRISTALISYNC TBH * (ABNORMAL) ALL CBC WITH AUTO DIFF (11/26/2024 10:03 AM EDT)ComponentValueRef RangeTest MethodAnalysis TimePerformed AtPathologist SignatureTBH WBC9.24.0 - 11.0 10 3/uLTBHTBH RBC4.324.20 - 5.40 10 6/uLTBHTBH HGB13.612.0 - 16.0 g/dLTBH TBH HCT38.936.0 - 48.0 %TBHTBH MCV90.081.0 - 99.0 fLTBHTBH MCH31.526.7 - 34.0 pgTBHTBH MCHC35.029.9 - 35.2 g/dLTBHTBH RDW12.411.0 - 15.0 %TBHTBH TWH460(L) 150 - 450 10 3/uLTBHTBH MPV11.39.5 - 13.5 fLTBHNEUTROPHILS PERCENT AUTO73.7 43.0 - 75.0 %TBHLYMPHOCYTES PERCENT AUTO18.9(L)20.5 - 60.0 %TBHMONOCYTES PERCENT AUTO4.61.7 - 12.0 %TBHTBH EO %1.10.9 - 7.0 %TBHBASOPHILS PERCENT AUTO 0.30.2 - 2.0 %TBHIMMATURE GRANULOCYTES PCT AUTO1.4(H)0.0 - 0.5 %TBHNEUTROPHILS ABSOLUTE AUTO6.8(H)1.4 - 6.5 10 3/uLTBHLYMPHOCYTES ABSOLUTE AUTO1.71.2 - 3.8 10 3/uLTBHMONOCYTES ABSOLUTE AUTO0.40.3 - 0.8 10 3/uLTBHTBH EO #0.10.0 - 0.7 10 3/uLTBHBASOPHILS ABSOLUTE AUTO0.00.0 - 0.1 10 3/uLTBHIMMATURE GRANULOCYTES ABS AUTO0.13(H)0.00 - 0.03 10 3/uLTBHSpecimen (Source)Anatomical Location / LateralityCollection Method / VolumeCollection TimeReceived Time11/26/2024 10:03 AM EDT11/26/2024 10:04 AM EDT Narrative CLINISYNC - 11/26/2024 10:14 AM EDT Authorizing ProviderResult TypeResult StatusCorey Sherwin DOCLINISYNCFinal Result Performing OrganizationAddressCity/State/ZIP CodePhone Number CLINISYNC H from Last 3 Months Insurance
--- OUTSIDE RECORDS SUMMARY | 2025-02-24 11:11 | XMS_ITS | CCD ---
Author Organization [facility] CliniSyin Care Team Providers Care Sterilization Tech Name Role Phone Rachana LYONS Primary Care Physician SHERWIN ., DR HORTA Attending Unavailable SHERWIN ., DR HORTA Admitting Unavailable SHERWIN ., DR HORTA Consulting Unavailable SHERWIN ., DR HORTA Admitting Unavailable SHERWIN ., DR HORTA Consulting Unavailable SHERWIN ., DR HORTA Attending Unavailable UNLU, RACQUEL Consulting Unavailable Princess Rapp Primary Care Physician [phone] Allyssa Robles RN Unavailable Unavailable Mallory Jauregui [...] Unavailable SHERWIN, LAYO Attending Unavailable Allergies Allergy ClassificationReported Allergen(s)Allergy TypeDate of OnsetReaction(s) Facility (20 sources)Azithromycin; Translations: [azithromycin]Drug [id number] Unknown (qualifier value), [facility] ([facility] sources)Latex; Translations: [Latex]Drug wzdyhiu89-22-0861[facility] (20 sources)nickel; Translations: [Nickel]Drug Kvtiayh02-01-8869Cnwj, Itching [facility] Medications Current Medications MedicationDrug Class(es)DatesSig (Normalized)Sig (Original)cephalexin 500 mg oral capsule (14 sources)Cephalosporin AntibacterialStart: 09-21-2024 End: 04-64-9426uzcd 1 capsule by mouth in the morningcephalexin (Keflex) 500 MG capsule Take 500 mg by mouth in the morning and 500 mg before bedtime. 12/06/2024 Discontinuedcetirizine hydrochloride 10 mg oral tablet (14 sources)Histamine-1 Receptor AntagonistStart: 10-04-2024 End: 04-09-5110scdl 1 tablet by mouth once dailycetirizine (ZyrTEC ALLERGY) 10 MG tablet Indications: Pruritus of in second trimester ([facility]) Take 1 tablet (10 mg) by mouth Daily 30 tablet 11 10/04/2024 12/06/2024 Discontinued cholecalciferol 0.125 mg oral capsule (7 sources)Vitamin Dtake 1 capsule by mouth once dailycholecalciferol (Vitamin D-3) 125 MCG (5000 UT) capsule Take 5,000 Units by mouth Daily Activeclobetasol propionate 0.0005 mg/mg topical ointment (6 sources)CorticosteroidStart: 63-60-9729kuezqorsey propionate 0.05% top oint 1 bonifacio, Topical, BID, 60 gm, Refill(s) 1, Apply a thin film to affected area. Do not use to face, armpits, groin., [facility]/pharmacy #[id number], 162, cm, 10/02/23 11:23:00 EDT, Height/Length Dosing, 76.7, kg, 10/02/23 11:23:00 EDT, Weight Dosing Start Date: 10/02/23 Status:OrderedStart: 91-87-0253stggawwtfi propionate 0.05% top oint 1 bonifacio, Topical, BID, 45 gram, Refill(s) 0, Apply a thin film to affected area. Do not use to face, armpits, groin., [facility], 160, cm, 07/24/21 17:02:00 EDT, Height/Length Dosing, 71.6, kg, 07/24/21 17:02:00 EDT, Weight Dosing Start Date: 02/10/22 Status: OrderedStart: 50-58-2156ozmavtlhlw propionate 0.05% top oint 1 bonifacio, Topical, BID, 45 gram, Refill(s) 1, [facility], 160, cm, 01/29/21 16:48:00 EDT, Height/Length Dosing, 82.2, kg, 01/29/21 16:48:00 EDT, Weight Dosing Start Date: 01/29/21 Status: Ordered cyclobenzaprine hydrochloride 10 mg oral tablet (11 sources)Muscle RelaxantStart: 10-17-2024 End: 07-68-6151jkia 0.5 tablet by mouth three times daily as needed for muscle spasmscyclobenzaprine (Flexeril) 10 MG tablet Indications: Acute bilateral low back pain without sciaticaTake 0.5 tablets (5 mg) by mouth 3 (three) times a day as needed for muscle spasms for up to 10 days 30 tablet 2 10/17/2024 12/06/2024 DiscontinuedStart: 87-64-9630jojt 1 tablet by mouth three times daily as needed for muscle spasmscyclobenzaprine 10 mg Tab 10 mg = 1 tab(s), Oral, TID, PRN for spasm, # 30 tab(s), Refills(s) 1, Pharmacy: [facility]/pharmacy #[id number], 162, cm, 02/19/23 7:51:00 EDT, Height/Length Dosing, 68.7, kg, 02/19/23 7:51:00 EDT, Weight Dosing Start Date: 02/19/23 Status: Orderedestradiol 2 mg oral tablet (20 sources)EstrogenStart: 02-24-2024 End: 29-75-2784hptmkoqqe (Estrace) 2 mg tablet Indications: Female infertility Insert 1 tablet (2 mg) into the vagina 2 times a day. 06/06/2024 06/06/2025 ActiveStart: 02-24-2024 End: 72-39-7797aufj 3 tablets by mouth once dailyestradiol (Estrace) 2 mg tablet Indications: Female infertility Take 3 tablets (6 mg) by mouth oncedaily. 90 tablet 11 06/19/2024 06/19/2025 Activeethinyl estradiol 0.03 mg / norethindrone acetate 1.5 mg oral tablet (2 sources)EstrogenStart: 21-38-4862jwsq 1 tablet by mouth once dailyJunel 1.5/30 oral tablet 1 tab(s), Oral, Daily, 84 tab(s), Refill(s) 6, Therapeutic tx; may refill early, [facility], 160, cm, 09/27/20 16:16:00 EDT, Height/Length Dosing, 80.8, kg, 09/27/20 16:16:00 EDT, Weight Dosing Start Date: 09/27/20 Status: Orderedfamotidine 20 mg oral tablet (15 sources)Histamine-2 Receptor AntagonistStart: 10-04-2024 End: 57-34-8937pbaa 1 tablet by mouth once dailyfamotidine (Pepcid) 20 MG tablet Indications: Gastroesophageal Reflux Disease , Heartburn Take 1 tablet (20 mg) by mouth Daily 30 tablet 11 10/04/2024 12/06/2024 DiscontinuedStart: 01-29-2021 take 1 mg by mouth once daily at bedtimePepcid 40 mg Tab mg tab(s), Oral, Once a day (at bedtime), Refills(s) 0 Start Date: 01/29/21 Status:OrderedFlonase 0.05 mg/inh nasal spray (1 source)Start: 28-32-6579Jxcnhxj 0.05 mg/inh nasal spray 50 microgram, Nasal, Daily, Refill(s) 0 Start Date: 09/30/18 Status:OrderedhydrOXYzine pamoate 25 mg oral capsule (12 sources)AntihistamineStart: 10-11-2024 End: 65-38-1410wswt 1 capsule by mouth every six hourshydrOXYzine pamoate (Vistaril) 25 MG capsule Indications: Pruritus Take 1 capsule (25 mg) by mouth e very 6 (six) hours if needed for itching for up to 10 days 30 capsule 10/11/2024 12/06/2024 DiscontinuedJunel 1.5/30 oral tablet (1 source)Start: 38-00-4261gsrg 1 tablet by mouth once dailyJunel 1.5/30 oral tablet 1 tab(s), Oral, Daily, 84 tab(s), Refill(s) 6, Therapeutic tx; may refill early, [facility], 160, cm, 09/27/20 16:16:00 EDT, Height/Length Dosing, 80.8, kg, 09/27/20 16:16:00 EDT, Weight Dosing Start Date: 09/27/20 Status: Orderedlidocaine 25 mg/ml / prilocaine 25 mg/ml topical cream (16 sources)Antiarrhythmic, Amide Local AnestheticStart: 02-24-2024 End: 90-88-3132kwwxndmrk-prilocaine (Emla) 2.5-2.5 % cream Indications: Female infertility Apply topically once daily. Apply to treatment area 1 hour prior to injection. 30 g 2 05/03/2024 3:33 PM EST 02/24/2024 02/23/2025 ActiveStart: 02-24-2024 End: 32-19-8453taixlkecy-prilocaine (Emla) 2.5-2.5 % cream Apply topically Daily 02/24/2024 08/08/2024 Discontinuedloratadine 10 mg oral tablet (1 source)Start: 84-70-2526uhpw 1 tablet by mouth once dailyloratadine 10 mg Tab 10 mg = 1 tab(s), Oral, Daily, Refills(s) 0 Start Date: 01/29/21 Status: Ordered methylPREDNISolone (14 sources)CorticosteroidStart: 10-04-2024 End: 60-22-2815pdpfctNNGIJZWwlllu (Medrol Dospak) 4 MG tablets Indications: Pruritus of in second trimester ([facility]) Day 1: 6 tablets Day 2: 5 tablets Day 3: 4 tablets Day 4: 3 tablets Day 5: 2 tablets Day 6: 1 tablet 21 tablet 10/04/2024 12/06/2024 DiscontinuedStart: 67-23-9738jkaffrIEIXZTZlfhta (Medrol Dospak) 4 MG tablets Indications: Pruritus of in second trimester ([facility]) Day 1: 6 tablets Day 2: 5 tablets Day 3: 4 tablets Day 4: 3 tablets Day 5: 2 tablets Day 6: 1 tablet 21 tablet 10/04/2024 ActiveStart: 72-54-0545zjojcwGMBLPMUugkvf (Medrol Dospak) 4 MG tablets Indications: Pruritus of in second trimester Day 1: 6 tablets Day 2: 5 tablets Day 3: 4 tablets Day 4: 3 tablets Day 5: 2 tablets Day 6: 1 tablet 21 tablet 10/04/2024 Activeorlistat 60 mg oral capsule (1 source)Intestinal Lipase InhibitorStart: 07-24-2021 End: 62-21-4047xwmr 1 capsule by mouth three times dailyalli 60 mg oral capsule 60 mg, 1 cap(s), Oral, TID for 30 day(s), 90 cap(s), Refill(s) 5, within 1 hour of each main meal containing fat, [facility], 160, cm, 07/24/21 17:02:00 EDT, Height/Length Dosing, 71.6, kg, 07/24/21 17:02:00 EDT, Weight Dosing Start Date: 07/24/21 Stop Date: 01/20/22 Status: Orderedphentermine hydrochloride 37.5 mg oral tablet (1 source)Sympathomimetic Amine AnorecticStart: 06-26-2021 End: 25-20-9287pebe 1 tablet by mouth once daily 1 hour(s) after mealtimeAdipex- P 37.5 mg Tab 37.5 mg = 1 tab(s), Oral, Daily, 1 hour before or 2 hours after meals. Adipex #1. OARRS reviewed. BMI>30., X 30 day(s), # 30 tab(s), Refills(s) 0 Start Date: 06/26/21 Stop Date: 07/26/21 Status: OrderedPrenatal MV-Min-Fe Fum-FA-DHA ( 1 PO) (20 sources) MV-Min-Fe Fum-FA-DHA ( 1 PO) Take 1 each by mouth Daily Lipunmbyurkdlr33-whxw-etxls- 29-1-400 mg combo pack,tablet and cap,DR (14 sources)reryajft44-ortm-knxfa-vzwiw5 29-1-400 mg combo pack,tablet and cap,DR Take by mouth. Activeprogesterone 50 mg/ml injectable solution (20 sources)ProgesteroneStart: 03-29-2024 End: 55-98-3298tmupsmycupth 50 MG/ML injection Inject 75 mg into the shoulder, thigh, or buttocks in the morning. 03/29/2024 03/29/2025 ActiveStart: 02-24-2024 End: 78-20-5322zfsbmbgvgryu 50 mg/mL injection Indications: Female infertility Draw up and inject 1.5 mL (75 mg) into the muscle at the same time each morning as directed per provider. 150 mL 05/03/2024 3:33 PM EST03/29/2024 03/29/2025 Activetopiramate 50 mg oral tablet (2 sources)Start: 78-28-6648ffki 1 tablet by mouth once dailyTopamax 50 mg Tab 50 mg = 1 tab(s), Oral, Daily, # 90 tab(s), Refills(s) 3, Pharmacy: [facility]/pharmacy #[id number], 162, cm, 10/02/23 11:23:00 EDT, Height/Length Dosing, 76.7, kg, 10/02/23 11:23:00 EDT, WeightDosing Start Date: 10/02/23 Status: OrderedStart: 08-27-2023 take 2 tablets by mouth once dailyTopamax 25 mg Tab 50 mg = 2 tab(s), Oral, Daily, # 180 tab(s), Refills(s) 0, Pharmacy: [facility]/pharmacy#[id number], 162, cm, 08/27/23 17:49:00 EDT, Height/Length Dosing, 75.4, kg, 08/27/23 17:49:00 EDT, Weight Dosing Start Date: 08/27/23 Status: Orderedtransparent dressings 2 3/8 X 2 3/4 bandage (11 sources)Start: 05-03-2024 End: 75-46-5463omogxxzykyl dressings 2 3/8 X 2 3/4 bandage Indications: Female infertility Use as directed to cover lidocaine cream. 90 each 05/03/2024 3:33 PM EST 05/03/2024 08/01/2024 ActiveStart: 02-24-2024 End: 46-06-3498qndznjzluyc dressings 2 3/8 X 2 3/4 bandage Indications: Female infertility Use as directed to cover lidocaine cream. 30 each 3 03/11/2024 12:36 PM EST 02/24/2024 05/24/2024 ActiveStart: 02-24-2024 End: 29-71-8038eglybgrypkc dressings 2 3/8 X 2 3/4 bandage Indications: Female infertility Use as directed to cover lidocaine cream. 30 each 3 02/24/2024 05/24/2024 Active Completed/Discontinued Medications MedicationDrug Class(es)DatesSig (Normalized)Sig (Original)cetrorelix 0.25 mg injection (15 sources)Gonadotropin Releasing Hormone AntagonistStart: 02-09-2024 End: 61-37-1865qnggdj 0.25 mg by subcutaneous injection once daily, then inject 0.25 mg by subcutaneous injection once dailycetrorelix (Cetrotide) 0.25 mg injection Indications: Female infertility Inject 0.25 mg under the skin once daily. Reconstitute according to instructions. Inject 0.25 mg (1 syringe) under the skin once daily as directed per provider. 5 kit 2 03/09/2024 03/22/2024 Discontinued (Therapy completed)chorionic gonadotropin 5000 unt/ml injectable solution (8 sources)GonadotropinStart: 02-09-2024 End: 55-55-4568feqhjmguk gonadotropin, human (NovareL) 5,000 unit recon soln injection Indications: Female infertility Inject 10,000 Units under the skin 1 time if needed (N/A) for up to 1 dose. Reconstitute according to instructions and inject 10,000 units (1 mL) under the skin as a one time dose, as directed per provider for trigger. 02/09/2024 03/09/2024 Discontinued (Med List Cleanup) Ethinyl Estradiol / norgestimate (20 sources)Progestin, EstrogenStart: 01-22-2024 End: 44-60-5180mphd 1 tablet by mouth once dailynorgestimate-ethinyl estradioL (Ortho-Cyclen) 0.25-35 mg-mcg tablet Indications: Female infertilityTake 1 tablet by mouth once daily. Take active pills only as directed per provider 28 tablet 2 01/22/2024 03/22/2024 Discontinued (Therapy completed)Start: 01-22-2024 End: 96-28-0938rics 1 tablet by mouth once dailynorgestimate-ethinyl estradioL (Ortho-Cyclen) 0.25-35 mg-mcg tablet Indications: Female infertilityTake 1 tablet by mouth once daily. Take active pills only as directed per provider 28 tablet 2 01/22/2024 01/21/2025 Activefollicle stimulating hormone 75 unt / luteinizing hormone 75 unt injection (16 sources)GonadotropinStart: 02-09-2024 End: 00-37-8037iczhob 75 [IU] by subcutaneous injection once daily in the eveningmenotropins (Menopur) 75 unit recon soln injection Indications: Female infertility Inject 75 Units under the skin once daily in the evening, as directed by provider 9 each 2 03/07/2024 03/22/2024 Discontinued (Therapy completed)1.5 ml follitropin pallavi 600 unt/ml pen injector (16 sources)Start: 03-01-2024 End: 52-28-2439aququs 225 [IU] by subcutaneous injection once daily in the eveningfollitropin pallavi (Gonal-f) 900/1.5 unit/mL pen injector pen injection Indications: Female infertility Inject 225 Units under the skin once daily in the evening, as directed by provider 1 each 2 03/07/2024 03/22/2024 Discontinued (Therapy completed)Start: 02-09-2024 End: 21-70-1027xukikk 250 [IU] by subcutaneous injection once daily in the eveningfollitropin pallavi (Gonal-f) 900/1.5 unit/mL pen injector pen injection Indications: Female infertility Inject 250 Units under the skin once daily in the evening. Inject under the skin as directed by provider 02/09/2024 03/09/2024 Discontinued (Med List Cleanup)0.5 ml ganirelix acetate 0.5 mg/ml prefilled syringe (7 sources)Gonadotropin Releasing Hormone AntagonistStart: 03-07-2024 End: 98-23-5989lqtbpf 0.5 mL by subcutaneous injection once daily in the morning ganirelix (Orgalutran) 250 mcg/0.5 mL syringe injection Indications: Female infertility Inject 0.5 mL (250 mcg) under the skin once daily in the morning, as directed per provider. 4 each 2 4105/22/2023 Discontinued (Therapy completed)ibuprofen 600 mg oral tablet (5 sources)Nonsteroidal Anti-inflammatory DrugStart: 93-91-1316gyvr 4-7 tablets by mouth every eight hours as neededibuprofen 600 mg Tab 600 mg = 1 tab(s), Oral, q8hr, PRN Pain 4-7, # 90 tab(s), Refills(s) 1, Pharmacy: [facility]/pharmacy #[id number], 162, cm, 02/19/23 7:51:00 EDT, Height/Length Dosing, 68.7, kg, 02/19/23 7:51:00 EDT, Weight Dosing Start Date: 02/19/23 Status: Orderedletrozole 2.5 mg oral tablet (2 sources)Aromatase InhibitorStart: 56-18-1071khpquuyse 2.5 mg Tab 15 EA, 0 Refill(s), TAKE 3 TABLETS (7.5 MG TOTAL) BY MOUTH DAILY FOR 5 DAYS. TAKE WITH OR WITHOUT FOOD., Refills(s) 0 Start Date: 02/19/23 Status: Orderedleuprolide acetate 5 mg/ml injectable solution (16 sources)Gonadotropin Releasing Hormone Receptor AgonistStart: 03-07-2024 End: 13-62-4796wyugchjmnl (Lupron) 1 mg/0.2 mL injection Indications: Female infertility Using an insulin syringe,draw up 80 units and inject under the skin as a one time dose, as directed per provider for trigger. 1 kit 03/11/2024 12:51 PM EST 03/07/2024 03/22/2024 Discontinued (Therapy completed)Start: 02-09-2024 End: 44-13-4887zctipp 0.8 mL by subcutaneous injection onceleuprolide (Lupron) 1 mg/0.2 mL injection Indications: Female infertility Inject 0.8 mL (4 mg total) under the skin if needed (N/A). Using an insulin syringe, draw up 80 units and inject under the skin as a one time dose, as directed per provider for trigger. 1 kit 03/01/2024 03/09/2024 Discontinued (Med List Cleanup)metFORMIN hydrochloride 500 mg oral tablet (5 sources)BiguanideStart: 70-24-8549LjoAWXDBV (Eqv-Glucophage XR) 500 mg oral tablet, extended release 30 EA, 0 Refill(s), TAKE 1 TABLET BY MOUTH EVERY DAY FOR 30 DAYS, Refills(s) 0 Start Date: 02/19/23 Status: Ordered End: 43-86-7288swpk 1 tablet by mouth every twenty-four hours at mealtime metFORMIN XR (Glucophage-XR) 500 MG 24 hr tablet Take 500 mg by mouth in the evening. Take with meals. 01/14/2024 Discontinuedpermethrin 50 mg/ml topical cream (3 sources)PyrethroidStart: 10-11-2024 End: 15-64-9627jtcvhkzedl (Elimite) 5 % cream Indications: Pruritus Apply topically 1 (one) time for 1 dose 60 g 10/11/2024 10/11/2024 Expiredsyringe, disposable, (BD Safety-Cole with Luer-Cole) 3 mL syringe (1 source)Start: 03-01-2024 End: 01-42-5476lrkxbln, disposable, (BD Safety-Cole with Luer-Cole) 3 mL syringe Indications: Female infertility Useas directed to mix and administer Menopur 30 each 3 03/01/2024 03/09/2024 Discontinued (Med List Cleanup) Problems Active Problems Problem ClassificationProblemDateDocumented DateEpisodic/Chronic Administrative/social admission (20 sources)Patient encounter status; Translations: [Persons encountering health services in other specified circumstances]Onset: 83-95-9363FiztzoxnTkichwic reactions (1 source)Eczema; Translations: [Dermatitis, unspecified]Onset: 10-02-2023 EpisodicAnxiety disorders (6 sources)Sdwjzuz55-75-5216JbwhbruBrkxvwhtj infection; unspecified site (2 sources)Streptococcus agalactiae infection; Translations: [Streptococcal infection, unspecified site]08-72-2114OlfyssamSkdgxfrypi disorders (7 sources)Gastroesophageal reflux disease; Translations: [Gastroesophageal reflux disease without esophagitis]Onset: 638101-05-4217VupskvtFnvdhk infertility (20 sources)Female infertility; Translations: [Female infertility, unspecified] Onset: 397261-81-2499HyhtszlKqwrsudvutbce symptoms and ill-defined conditions (4 sources)Leukocytes in urine; Translations: [Other abnormal findings in urine] 26-97-6207CcmoibmvNsezndut; including migraine (15 sources)Headache; Translations: [Headache, unspecified]Onset: 02-19-2023 EpisodicJoint disorders and dislocations; trauma-related (6 sources)Tear of medial meniscus of rbef85-49-0263XqfjgtlcChtyalv and fatigue (7 sources)Fatigue; Translations: [Other fatigue]Onset: EpisodicMenstrual disorders (8 sources)Irregular menstruation, unspecified; Translations: [Menorrhagia] Onset: 47-42-1044SyknrptJrvaj complications of (4 sources)Conceived by in vitro fertilization; Translations: [Supervision of resulting from assisted reproductive technology, third trimester] 75-46-8579AldcseboDioks endocrine disorders (1 source)Polycystic ovarian syndrome; Translations: [POLYCYSTIC OVARIAN SYNDROME]Onset: 55-34-8331XtuxspvCglja inflammatory condition of skin (2 sources)Pruritus, unspecified; Translations: [Unspecified pruritic disorder] 11-47-6171LqnsjyhnQpzjg injuries and conditions due to external causes (6 sources)Injury of dental lvansvgmdf28-01-9844KruoysdzLzddp nutritional; endocrine; and metabolic disorders (6 sources)Body mass index 30+ - ljzjyzc75-29-6905GcmtuygSvhxl nutritional; endocrine; and metabolic disorders (7 sources)Overweight in adulthood with body mass index of 25 or more but less than 30; Translations: [Body mass index (BMI) 27.0-27.9, adult]Onset: 07-24-2021 EpisodicOther nutritional; endocrine; and metabolic disorders (7 sources)Overweight; Translations: [Overweight]Onset: 39-57-0482JyscircgSjqha nutritional; endocrine; and metabolic disorders (6 sources)Weight jnkm01-71-2409GcaqjqyvQaixs and delivery including normal (20 sources); Translations: [Encounter for supervision of normal , unspecified, unspecified trimester]Onset: EpisodicOther skin disorders (6 sources)Inflammatory pwqebnqidm63-20-5099RkioeecnCgsdy skin disorders (1 source)Non-scarring alopecia; Translations: [Nonscarring hair loss, unspecified]Onset: 47-77-8657RqwbgnhxDqakkysd codes; unclassified (6 sources)FH: Polycystic lrmenr82-49-4489TxeyzdjmNtukrvlg codes; unclassified (1 source)Gestation period, 9 weeks; Translations: [9 weeks gestation of ]99-76-8975JmeecfaqTzxwpogq codes; unclassified (2 sources)Gestation period, 10 weeks; Translations: [10 weeks gestation of ]43-59-7635ZtwnsmgtSxddyhsy codes; unclassified (2 sources)Gestation period, 14 weeks; Translations: [14 weeks gestation of ]49-54-0719FbqolgszOwrvwgnr codes; unclassified (2 sources)Gestation period, 19 weeks; Translations: [19 weeks gestation of ]91-21-5405NzemnyevDvjckgzu codes; unclassified (2 sources)Gestation period, 20 weeks; Translations: [20 weeks gestation of ]27-57-8198IpqtlwftEnnccomj codes; unclassified (2 sources)Gestation period, 26 weeks; Translations: [26 weeks gestation of ]06-05-1651FlvbyyukEedioqzr codes; unclassified (2 sources)Gestation period, 27 weeks; Translations: [27 weeks gestation of ]65-47-9030OmzgfcpfOnwnuenn codes; unclassified (2 sources)Gestation period, 29 weeks; Translations: [29 weeks gestation of ]95-82-3422IyzvibqeTjivrmbg codes; unclassified (2 sources)Gestation period, 31 weeks; Translations: [31 weeks gestation of ]32-20-8013AnvhvkofAzynhpji codes; unclassified (2 sources)Gestation period, 33 weeks; Translations: [33 weeks gestation of ]53-14-8828CfnojlraKyzkdhat codes; unclassified (2 sources)Gestation period, 35 weeks; Translations: [35 weeks gestation of ]18-13-0759PlebdfmcPqavzisf codes; unclassified (2 sources)Gestation period, 36 weeks; Translations: [36 weeks gestation of ]63-06-1387UhwvipyyDlhabogp codes; unclassified (2 sources)Gestation period, 37 weeks; Translations: [37 weeks gestation of ]80-38-5697NaqjujffFdpwixwqr and history of mental health and substance abuse codes (1 source)H/O: psychiatric disorder; Translations: [Personal history of other mental and behavioral disorders]Onset: 33-43-8545QuryvejdUwlutupaxzr; intervertebral disc disorders; other back problems (9 sources)Neck pain; Translations: [Cervicalgia]Onset: 44-38-1572Rpiregde Sprains and strains (6 sources)Rupture of anterior cruciate itxqjspq71-49-8260HysutvihQmdcwaawtyrj (20 sources)Patient encounter iftcnz93-00-8981Psrcwgfmyeqx (2 sources)IVF ConsultationOnset: 70-21-2177Ebexb infection (6 sources)Verruca enrvqbtf03-31-3735Muefnams Past or Other Problems Problem ClassificationProblemDateDocumented DateEpisodic/ChronicContraceptive and procreative management (8 sources)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; Translations: [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]Onset: 2023 51-60-5788UzbmcrxlNialxiouihwaz and screening for infectious disease (7 sources)Encounter for screening for human papillomavirus (HPV); Translations: [Exposure to sexually transmissible disorder]Onset: 686130-16-5846Wqifungk Nausea and vomiting (20 sources)Postoperative nausea and vomiting; Translations: [Nausea with vomiting, unspecified]Onset: 108793-34-0993SjuxrdcbGvxxb complications of (2 sources) with inconclusive viability, not applicable or unspecified; Translations: [ with inconclusive viability, not applicable or unspecified]Onset: 66-09-7995RjjlvlqaGviqb female genital disorders (4 sources)Polyp of corpus uteri; Translations: [Polyp of corpus uteri]Onset: 205492-53-6054RihmsxaoCdioh screening for suspected conditions (not mental disorders or infectious disease) (6 sources)Encounter for screening for malignant neoplasm of cervix; Translations: [Encounter for other screening for genetic and chromosomal anomalies]Onset: 37-49-3822AgvoxhkoPxfozbzbylsb (1 source)over heated( Confirmed ) 226-03-8479Dqcxfnr on above:2 years ago when she would becomeoverheated shewould pass out and afterwards have a really bad headache. dr el give her medications for migraines, but pt wasnt had episode since.Unclassified (5 sources)over heated 912-13-1598Uozdhgh on above:2 years ago when she would becomeoverheated shewould pass out and afterwards have a really bad headache. dr el give her medications for migraines, but pt wasnt had episode since. NEGATED: Highlighted row has been ruled out!Unclassified (20 sources)No known active -[id number] Results Test NameValueInterpretationReference RangeFacilityUrinalysis macro (dipstick) panel (U)on 56-87-4397Knuyideqy, UANegativeNegative - 4(70) +++ mg/dLNOMS HealthcareBlood, UANegativeNegative - 50 Jose/mcLNOMS HealthcareClarity, UAClear NOMS HealthcareColor, UAYellowNOMS HealthcareGlucose, UANegativeNegative - 2000(110) ++++ mg/dLNOMS HealthcareInterpretation and review of laboratory resultsAbnormalNOMS HealthcareKetones, UANegativeNegative - 160(16) ++++ mg/dL NOMS HealthcareLeukocytes, UAPositiveNegative - 500+++ Onel/mcLNOMS Healthcare Comment on above:2+Nitrite, UANegativeNegative - PositiveNOMS HealthcarepH, UA 6.05 - 9NOMS HealthcareProtein, UANegativeNegative - 2000(20) ++++ mg/dLNOMS HealthcareSpec Grav, UA1.0151 - 1.03NOMS HealthcareUrobilinogen, UA0.20.2 - 12 mg/dLNOMS HealthcareNOMS HealthcareUS OB BPP W NON-STRESSon 45-76-3581[place] [address] Ultrasound Report Signed Patient: SYDNEY ROMERO MR#: [id number] : 1995 Acct:[id number] Age/Sex: 29 / F ADM Date: 02/07/25 Loc: [facility] 254-[address]: Layo Courtney D.O. Ordering Physician: Layo Courtney D.O. 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 heart rate 147. Heterogeneous appearance of the placenta hypoechoic focus measuring 2.4 x 1.9 x 1.6 cm in size. US/US OB BPP w non-stress IMPRESSION: BPP 8 out of 8. Impression dictated by: Bernabe Romero M.D. 02/07/2025 4:05 PM Dictation Location: [place] [address] Electronically authenticated by: [id number] Y Date: 02/07/2025 16:05 Dictated By: Bernabe Romero M.D. Signed By: 02/07/251606 DD/ 04 TD/TT: Grain Drier:ILENEadiologarthur, Radiologist, - 02/07/2025 [place] [address] Ultrasound Report Signed Patient: SYDNEY ROMERO MR#: [id number] : 1995 Acct:[id number] Age/Sex: 29 / F ADM Date: 02/07/25 Loc: [facility] 254-[address]: Layo Courtney D.O. Ordering Physician: Layo Courtney D.O. 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 heart rate 147. Heterogeneous appearance of the placenta hypoechoic focus measuring 2.4 x 1.9 x 1.6 cm in size. US/US OB BPP w non-stress IMPRESSION: BPP 8 out of 8. Impression dictated by: Bernabe Romero M.D. 02/07/2025 4:05 PM Dictation Location: [place] [address] Electronically authenticated by: [id number] Y Date: 02/07/2025 16:05 Dictated By: Bernabe Romero M.D. Signed By: 02/07/25 160 DD/ 04 TD/TT: Grain Drier: [facility] SystemRadiology Study observation (narrative)BAYSTATE WING HOSPITALKenisha The Metrohealth SystemUS OB BPP W NON-STRESSOrdered By: Radiologist Radiology on 57-12-8111XHXSFreeman Health System Work Phone: Urinalysis macro (dipstick) panel (U)on 02-07-2025 Bilirubin, UANegativeNegative - 4(70) +++ mg/dLNOMS HealthcareBlood, UANegative Negative - 50 Jose/mcLNOMS HealthcareClarity, UAClearNOMS HealthcareColor, UA YellowNOMS HealthcareGlucose, UANegativeNegative - 2000(110) ++++ mg/dLNOMS HealthcareInterpretation and review of laboratory resultsAbnormalNOMS Healthcare Ketones, UANegativeNegative - 160(16) ++++ mg/dLNOMS HealthcareLeukocytes, UA3+ Negative - 500+++ Onel/mcLNOMS HealthcareNitrite, UANegativeNegative - Positive NOMS HealthcarepH, UA6.55 - 9NOMS HealthcareProtein, UATraceNegative - 2000(20) ++++ mg/dLNOMS HealthcareSpec Grav, UA1.0151 - 1.03NOMS HealthcareUrobilinogen, UA2.00.2 - 12 mg/dLNOMS HealthcareNOMS HealthcareNo Panel InformationOrdered By: Radiologist Radiology on 17-21-9040BTIOFreeman Health System Work Phone: No Panel Informationon 86-95-4215Bjjafqjbe Study observation (narrative)[facility] Health SystemUS OB BPP W NON-STRESSon 02-01-2025 [place] [address] Ultrasound Report Signed Patient: SYDNEY ROMERO MR#: [id number] : 1995 Acct:[id number] Age/Sex: 29 / F ADM Date: 01/31/25 Loc: US Attending Dr: Layo Courtney D.O. Ordering Physician: Layo Courtney D.O. Date of Service: 01/31/25 Procedure(s): US OB BPP w non-stress Accession Number(s): [id number] cc: Layo Courtney D.O.; Physician,Non-Staff Steven [place] [id number] Patient Name: SYDNEY ROMERO MRN: [facility]:[id number] date: 1995 Sex: F Assigned Patient Location: Current Patient Location: LAB Accession/Order Number: [id number] Exam Date: 01/31/2025 15:22 Report Date: 02/01/2025 [...] Toledo M.D. 02/01/2025 9:21 AM Dictation Location: [place] [address] Electronically authenticated by: [id number] Y Date: 02/01/2025 09:21 Dictated By: Mariela Toledo M.D. Signed By: 02/01/25923 DD/ 0 TD/TT: Grain Drier:TBHRadiology, Radiologist, MD - 02/01/2025 [place] [address] Ultrasound Report Signed Patient: SYDNEY ROMERO MR#: [id number] : 1995 Acct:[id number] Age/Sex: 29 / F ADM Date: 01/31/25 Loc: US Attending Dr: Layo Courtney D.O. Ordering Physician: Layo Courtney D.O. Date of Service: 01/31/25 Procedure(s): US OB BPP w non-stress Accession Number(s): [id number] cc: Layo Courtney D.O.; Physician,Non-Staff Steven The [place] [id number] Patient Name: SYDNEY ROMERO MRN: [facility]:[id number] date: 1995 Sex: F Assigned Patient Location: US Current Patient Location: LAB Accession/Order Number: [id number] Exam Date: 01/31/2025 15:22 Report Date: 02/01/2025 [...] Toledo M.D. 02/01/2025 9:21 AM Dictation Location: [place] [address] Electronically authenticated by: [id number] Y Date: 02/01/2025 09:21 Dictated By: Mariela Toledo M.D. Signed By: 02/01/25923 DD/ 0 TD/TT: Grain Drier: SHIRA TIPTON GROWTHon 38-78-8099[place]ob[place] [address] Ultrasound Report Signed Patient: SYDNEY ROMERO MR#: [id number] : 1995 Acct:[id number] Age/Sex: 29 / F ADM Date: 01/31/25 Loc: US Attending Dr: Layo Courtney D.O. Ordering Physician: Layo Courtney D.O. Date of Service: 01/31/25 Procedure(s): US OB growth Accession Number(s): [id number] cc: Layo Courtney D.O.; Physician,Non-Staff Steven [address] [address] Patient Name: SYDNEY ROMERO MRN: [facility]:[id number] date: 1995 Sex: F Assigned Patient Location: [facility] Current Patient Location: LAB Accession/Order Number: [id number] Exam Date: 01/31/2025 15:22 Report Date: 02/01/2025 [...] Toledo M.D. 02/01/2025 9:21 AM Dictation Location: [place] [address] Electronically authenticated by: [id number] Y Date: 02/01/2025 09:21 Dictated By: Mariela Toledo M.D. Signed By: 02/01/25923 DD/ 0 TD/TT: Grain Drier:ILENEadiologarthur, Radiologist, - 02/01/2025 [place] [address] Ultrasound Report Signed Patient: SYDNEY ROMERO MR#: [id number] : 1995 Acct:[id number] Age/Sex: 29 / F ADM Date: 01/31/25 Loc: US Attending Dr: Layo Courtney D.O. Ordering Physician: Layo Courtney D.O. Date of Service: 01/31/25 Procedure(s): US OB growth Accession Number(s): [id number] cc: Layo Courtney D.O.; Physician,Non-Staff Steven The [place] [id number] Patient Name: SYDNEY ROMERO MRN: [facility]:[id number] date: 1995 Sex: F Assigned Patient Location: [facility] Current Patient Location: LAB Accession/Order Number: [id number] Exam Date: 01/31/2025 15:22 Report Date: 02/01/2025 [...] Toledo M.D. 02/01/2025 9:21 AM Dictation Location: [place] [address] Electronically authenticated by: [id number] Y Date: 02/01/2025 09:21 Dictated By: Mariela Toledo M.D. Signed By: 02/01/25923 DD/ 0 TD/TT: Grain Drier: SHIRA HealthcareUrinalysis macro (dipstick) panel (U)on 89-81-9106Emcvtkxee, UA NegativeNegative - 4(70) +++ mg/dLNOMS HealthcareBlood, UANegativeNegative - 50 Jose/mcLNOMS HealthcareClarity, UAClearNOMS HealthcareColor, UAYellowNOMS HealthcareGlucose, UANegativeNegative - 1999(110) ++++ mg/dLNOMS Healthcare Interpretation and review of laboratory resultsAbnormalNOMS HealthcareKetones, UANegativeNegative - 160(16) ++++ mg/dLNOMS HealthcareLeukocytes, UA3+Negative - 500+++ Onel/mcLNOMS HealthcareNitrite, UANegativeNegative - PositiveNOMS HealthcarepH, UA75 - 9NOMS HealthcareProtein, UANegativeNegative - 2000(20) ++++ mg/dLNOMS HealthcareSpec Grav, UA1.011 - 1.03NOMS HealthcareUrobilinogen, UA2.0 0.2 - 12 mg/dLNOMS HealthcareNOMS HealthcareUS OB BPP W NON-STRESSon 66-23-4004Pnp[place] [address] Ultrasound Report Signed Patient: SYDNEY ROMERO MR#: [id number] : 1995 Acct:[id number] Age/Sex: 29 / F ADM Date: 01/25/25 Loc: US Attending Dr: Layo Courtney D.O. Ordering Physician: Layo Courtney D.O. 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 heart rate 134. Heterogeneous appearance of the placenta hypoechoic focus measuring 1.3 x 2.8 x 2.0 cm in size. US/US OB BPP w non-stress IMPRESSION: BPP 8 out of 8. Impression dictated by: Bernabe Romero M.D. 01/25/2025 6:24 PM Dictation Location: [place] [address] Electronically authenticated by: [id number] Y Date: 01/25/2025 18:24 Dictated By: Bernabe Roemro M.D. Signed By: 01/25/251826 DD/ 23 TD/TT: Grain Drier:TBHRadiology, Radiologist, - 01/25/2025 [place] [address] Ultrasound Report Signed Patient: SYDNEY ROMERO MR#: [id number] : 1995 Acct:[id number] Age/Sex: 29 / F ADM Date: 01/25/25 Loc: US Attending Dr: Layo Courtney D.O. Ordering Physician: Layo Courtney D.O. 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 heart rate 134. Heterogeneous appearance of the placenta hypoechoic focus measuring 1.3 x 2.8 x 2.0 cm in size. US/US OB BPP w non-stress IMPRESSION: BPP 8 out of 8. Impression dictated by: Bernabe Romero M.D. 01/25/2025 6:24 PM Dictation Location: [place] [address] Electronically authenticated by: [id number] Y Date: 01/25/2025 18:24 Dictated By: Bernabe Romero M.D. Signed By: 01/25/251826 DD/ 23 TD/TT: Grain Drier: SHIRA HealthcareRadiology Study observation (narrative)NOMS HealthcareUS OB BPP W NON-STRESSOrdered By: Radiologist Radiology on 66-98-1630HPQC [facility] Work Phone: US OB BPP W NON-STRESSon 21-17-[address] [address] Ultrasound Report Signed Patient: SYDNEY ROMERO MR#: [id number] : 1995 Acct:[id number] Age/Sex: 29 / F ADM Date: 01/24/25 Loc: US Attending Dr: Layo Courtney D.O. Ordering Physician: Layo Courtney D.O. Date of Service: 01/24/25 Procedure(s): US OB BPP w non-stress Accession Number(s): [id number] cc: Layo Courtney D.O.; Physician,Non-Staff M.Nadir The [place] [id number] Patient Name: SYDNEY ROMERO MRN: [id number]:[id number] date: 1995 Sex: F Assigned Patient Location: [facility] Current Patient Location: Accession/Order Number: [id number] Exam Date: 01/24/2025 16:10 Report Date: 01/24/2025 19:55 At the request of: LAYO COURTNEY DO Procedure: US OB BPP w non-stress Biophysical profile. Reason for exam: resulting in vitro fertilization COMPARISON: 01/17/2025 TECHNIQUE: Transabdominal imaging of the gravid uterus was obtained. 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 LONNY is normal at 11.9 cm. heart rate 148 bpm. US/US OB BPP w non-stress IMPRESSION: BPP 6out of 8. Correlation with NST is suggested. Impression dictated by: Juan Salinas Jr., D.O. 01/24/2025 7:55 PM Dictation Location: [place] [address] Electronically authenticated by: [id number] Y Date: 01/24/2025 19:55 Dictated By: Juan Salinas M.D. Signed By: 01/24/251957 DD/ 54 TD/TT: Grain Drier:GALINAHRadiology, Radiologist, - 01/24/2025 [place] [address] Ultrasound Report Signed Patient: SYDNEY ROMERO MR#: [id number] : 1995 Acct:[id number] Age/Sex: 29 / F ADM Date: 01/24/25 Loc: US Attending Dr: Layo Courtney D.O. Ordering Physician: Layo Courtney D.O. Date of Service: 01/24/25 Procedure(s): US OB BPP w non-stress Accession Number(s): [id number] cc: Layo Courtney D.O.; Physician,Non-Staff Steven The [place] [id number] Patient Name: SYDNEY ROMERO MRN: [id number]:[id number] date: 1995 Sex: F Assigned Patient Location: [facility] Current Patient Location: Accession/Order Number: [id number] Exam Date: 01/24/2025 16:10 Report Date: 01/24/2025 19:55 At the request of: LAYO COURTNEY DO Procedure: US OB BPP w non-stress Biophysical profile. Reason for exam: resulting in vitro fertilization COMPARISON: 01/17/2025 TECHNIQUE: Transabdominal imaging of the gravid uterus was obtained. 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 LONNY is normal at 11.9 cm. heart rate 148 bpm. US/US OB BPP w non-stress IMPRESSION: BPP 6out of 8. Correlation with NST is suggested. Impression dictated by: Juan Salinas Jr., D.O. 01/24/2025 7:55 PM Dictation [facility] Electronically authenticated by: [id number] Y Date: 01/24/2025 19:55 Dictated By: Juan Salinas M.D. Signed By: 01/24/251957 DD/ 54 TD/TT: Grain Drier: SHIRA HealthcareRadiology Study observation (narrative)NOM HealthcareUS OB BPP W NON-STRESSOrdered By: Radiologist Radiology on 85-76-4973PRWG [employer] Work Phone: US OB BPP W NON-STRESSon 71-55-9110Isc[place] [address] Ultrasound Report Signed Patient: SYDNEY ROMERO MR#: [id number] : 1995 Acct:[id number] Age/Sex: 29 / F ADM Date: 01/17/25 Loc: US Attending Dr: Layo Courtney D.O. Ordering Physician: Layo Courtney D.O. Date of Service: 01/17/25 Procedure(s): US OB BPP w non-stress Accession Number(s): [id number] cc: Layo Courtney D.O.; Physician,Non-Staff Steven [place] [address] Patient Name: SYDNEY ROMERO MRN: [id number]:[id number] date: 1995 Sex: F Assigned Patient Location: [facility] Current Patient Location: Accession/Order Number: [id number] Exam Date: 01/17/2025 16:08 Report Date: 01/18/2025 [...] Toledo M.D. 01/18/2025 9:02 AM Dictation Location: [place] [address] Electronically authenticated by: [id number] Y Date: 01/18/2025 09:02 Dictated By: Mariela Toledo M.D. Signed By: 01/18/25904 DD/ 1 TD/TT: Grain Drier:TBHRadiology, Radiologist, MD - 01/18/2025 [place] [address] Ultrasound Report Signed Patient: SYDNEY ROMERO MR#: [id number] : 1995 Acct:[id number] Age/Sex: 29 / F ADM Date: 01/17/25 Loc: US Attending Dr: Layo Courtney D.O. Ordering Physician: Layo Courtney D.O. Date of Service: 01/17/25 Procedure(s): US OB BPP w non-stress Accession Number(s): [id number] cc: Layo Courtney D.O.; Physician,Non-Staff Steven The [address] [address] Patient Name: SYDNEY ROMERO MRN: [id number] date: 1995 Sex: F Assigned Patient Location: [facility] Current Patient Location: Accession/Order Number: [id number] Exam Date: 01/17/2025 16:08 Report Date: 01/18/2025 [...] Toledo M.D. 01/18/2025 9:02 AM Dictation Location: [place] [address] Electronically authenticated by: [id number] Y Date: 01/18/2025 09:02 Dictated By: Mariela Tol[place] M.D. Signed By: 01/18/25904 DD/ 1 TD/TT: Grain Drier: SHIRA HealthcareRadiology Study observation (narrative)NOMS HealthcareUS OB BPP W NON-STRESSOrdered By: Radiologist Radiology on 31-10-6623ENSG [facility] Work Phone: Urinalysis macro (dipstick) panel (U)on 01-16-2025 Bilirubin, UANegativeNegative - 4(70) +++ mg/dLNOMS HealthcareBlood, UANegative Negative - 50 Jose/mcLNOMS HealthcareClarity, UAClearNOMS HealthcareColor, UA YellowNOMS HealthcareGlucose, UANegativeNegative - 2000(110) ++++ mg/dLNOMS HealthcareInterpretation and review of laboratory resultsAbnormalNOME Healthcare Ketones, UANegativeNegative - 160(16) ++++ mg/dLNOME HealthcareLeukocytes, UA PositiveNegative - 500+++ Onel/mcLNOME HealthcareNitrite, UANegativeNegative - PositiveNOMS HealthcarepH, UA65 - 9NOMS HealthcareProtein, UAPositiveNegative - 2000(20) ++++ mg/dLNOMS HealthcareSpec Grav, UA1.031 - 1.03N[facility] Healthcare Urobilinogen, UA1.00.2 - 12 mg/dLNOMS HealthcareNOMS HealthcareUS OB BPP W NON-STRESSon 81-20-9140Djd[place] [address] Ultrasound Report Signed Patient: SYDNEY ROMERO MR#: [id number] : 1995 Acct:[id number] Age/Sex: 29 / F ADM Date: 01/10/25 Loc: US Attending Dr: Layo Courtney D.O. Ordering Physician: Layo Courtney D.O. Date of Service: 01/10/25 Procedure(s): US OB BPP w non-stress Accession Number(s): [id number] cc: Layo Courtney D.O.; Physician,Non-Staff M.Nadir The [address] [address] Patient Name: SYDNEY ROMERO MRN: [facility]:[id number] date: 1995 Sex: F Assigned Patient Location: US Current Patient Location: Accession/Order Number: [id number] Exam Date: 01/10/2025 16:03 Report Date: 01/10/2025 [...] Romero M.D. 01/10/2025 9:07 PM Dictation Location: [place] [address] Electronically authenticated by: [id number] Y Date: 01/10/2025 21:07 Dictated By: Bernabe Romero M.D. Signed By: 01/10/252109 DD/ 06 TD/TT: Grain Drier:TBHRadiology, Radiologist, MD - 01/10/2025 [place] [address] Ultrasound Report Signed Patient: SYDNEY ROMERO MR#: [id number] : 1995 Acct:[id number] Age/Sex: 29 / F ADM Date: 01/10/25 Loc: US Attending Dr: Layo Courtney D.O. Ordering Physician: Layo Courtney D.O. Date of Service: 01/10/25 Procedure(s): US OB BPP w non-stress Accession Number(s): [id number] cc: Layo Courtney D.O.; Physician,Non-Staff Steven The [place] [address] Patient Name: SYDNEY ROMERO MRN: [facility]:[id number] date: 1995 Sex: F Assigned Patient Location: US Current Patient Location: Accession/Order Number: [id number] Exam Date: 01/10/2025 16:03 Report Date: 01/10/2025 [...] Romero M.D. 01/10/2025 9:07 PM Dictation Location: [place] [address] Electronically authenticated by: [id number] Y Date: 01/10/2025 21:07 Dictated By: Bernabe Romero M.D. Signed By: 01/10/252109 DD/ 06 TD/TT: Grain Drier: [facility] HealthcareRadiology Study observation (narrative)NOM HealthcareUS OB BPP W NON-STRESSOrdered By: Radiologist Radiology on 64-10-8949UXFL Healthcare Work Phone: Urinalysis macro (dipstick) panel (U)on 01-03-2025 Bilirubin, UANegativeNegative - 4(70) +++ mg/dLNOMS HealthcareBlood, UANegative Negative - 50 Jose/mcLNOMS HealthcareClarity, UAClearNOMS HealthcareColor, UA YellowNOMS HealthcareGlucose, UATraceNegative - 2000(110) ++++ mg/dLNOME HealthcareInterpretation and review of laboratory resultsAbnormalNOME Healthcare Ketones, UANegativeNegative - 160(16) ++++ mg/dLNOMS HealthcareLeukocytes, UA PositiveNegative - 500+++ Onel/mcLNOMS HealthcareNitrite, UANegativeNegative - PositiveNOMS HealthcarepH, UA85 - 9NOMS HealthcareProtein, UANegativeNegative - 2000(20) ++++ mg/dLNOMS HealthcareSpec Grav, UA1.0151 - 1.03N[facility] Healthcare Urobilinogen, UA1.00.2 - 12 mg/dLNOMS HealthcareNOMS HealthcareUS OB FOLLOW UP TRANSABDOMINAL APPROACHon 26-63-0793IY OB FOLLOW UP TRANSABDOMINAL APPROACHEXAM: US OB FOLLOW UP TRANSABDOMINAL APPROACH HISTORY: [...] II, MD, PHD at 22-Dec-2024 08:03:51 AM [facility]eleradiologyNormalNot AvailableComment on above:Order Comment: US OB SCAN FOR GROWTH Estimated Date of Delivery: 03/01/25 Gestational Age as of 12/06/2024: 70e1sKzjixvzkvx macro (dipstick) panel (U)on 72-91-5834Wtuicccfl, UANegativeNegative - 4(70) +++ mg/dLNOMS HealthcareBlood, UAPositiveNegative - 50 Jose/mcLNOMS HealthcareClarity, UAClearNOMS Healthcare Color, UAYellowNOMS HealthcareGlucose, UANegativeNegative - 2000(110) ++++ mg/dL NOMS HealthcareInterpretation and review of laboratory resultsAbnormalNOMS HealthcareKetones, UANegativeNegative - 160(16) ++++ mg/dLNOMS Healthcare Leukocytes, UAPositiveNegative - 500+++ Onel/mcLNOMS HealthcareComment on above: 3+Nitrite, UANegativeNegative - PositiveNOMS HealthcarepH, UA65 - 9NOMS HealthcareProtein, UAPositiveNegative - 2000(20) ++++ mg/dLNOMS HealthcareSpec Grav, UA1.031 - 1.03NOMS HealthcareUrobilinogen, UA1.00.2 - 12 mg/dLNOMS HealthcareNOMS HealthcareGLUCOSE TOLERANCE 3 HOURon 07-07-9755WFWMDWD TOLERANCE 3 HOURmg/dLNOMS HealthcareComment on above:GLU FAST 90 (<95) Col: 12/06/24 1126 GLU 1HR 143 (<180) Col: 12/06/24 1235 GLU 2HR 132 (<155) Col: 12/06/24 1327 GLU 3HR 81 (<140) Col: 12/06/24 1432 CLINISYNCNOME HealthcareUrinalysis macro (dipstick) panel (U)on 12-06-2024 Bilirubin, UANegativeNegative - 4(70) +++ mg/dLNOME HealthcareBlood, UANegative Negative - 50 Jose/mcLNOME HealthcareClarity, UAClearNOMS HealthcareColor, UA YellowNOMS HealthcareGlucose, UANegativeNegative - 2000(110) ++++ mg/dLNOME HealthcareInterpretation and review of laboratory resultsAbnormalNOME Healthcare Ketones, UANegativeNegative - 160(16) ++++ mg/dLNOME HealthcareLeukocytes, UA3+ Negative - 500+++ Onel/mcLNOME HealthcareNitrite, UANegativeNegative - Positive NOMS HealthcarepH, UA85 - 9NOMS HealthcareProtein, UANegativeNegative - 2000(20) ++++ mg/dLNOMS HealthcareSpec Grav, UA1.0151 - 1.03NOMS HealthcareUrobilinogen, UA1.00.2 - 12 mg/dLNOMS HealthcareNOMS HealthcareALL CBC WITH AUTO DIFFon 06-44-7579ZLGIBUDYV ABSOLUTE EJJR4CFGL HealthcareBasophils/100 WBC (Bld)0.3 %0.2 - 2.0 %NOMS HealthcareEosinophils/100 WBC (Bld)1.1 %0.9 - 7.0 %[facility] Erythrocyte distribution width (RBC) [Ratio]12.4 %11.0 - 15.0 %[facility] Healthcare Hematocrit (Bld) [Volume fraction]38.9 %36.0 - 48.0 %[facility] SystemHemoglobin (Bld) [Mass/Vol]13.6 g/dL12.0 - 16.0 g/dLNOMissouri Delta Medical CenterIMMATURE GRANULOCYTES ABS AUTO0.13HighNOMissouri Delta Medical CenterImmature granulocytes/100 WBC (Bld)1.4 %High0.0 - 0.5 %[facility] SystemInterpretation and review of laboratory resultsAbnormalFreeman Health SystemLYMPHOCYTES ABSOLUTE AUTO1.7NOMissouri Delta Medical CenterLymphocytes/100 WBC (Bld) 18.9 %Low20.5 - 60.0 %[facility] HospitalH (RBC) [Entitic mass]31.5 pg26.7 - 34.0 pgSaint Alexius HospitalHC (RBC) [Mass/Vol]35 g/dL29.9 - 35.2 g/dLSaint Alexius HospitalV (RBC) [Entitic vol]90 fL81.0 - 99.0 fLFreeman Health SystemMONOCYTES ABSOLUTE AUTO0.4 [facility] SystemMonocytes/100 WBC (Bld)4.6 %1.7 - 12.0 %[facility] NEUTROPHILS ABSOLUTE AUTO6.8HighFreeman Health SystemNeutrophils/100 WBC (Bld)73.7 % 43.0 - 75.0 %[facility] SystemPlatelet mean volume (Bld) [Entitic vol]11.3 fL9.5 - 13.5 fLFreeman Health SystemTB EO #0.1NOMS [facility] SystemTB [id number] Hospital RBC4.32NOFitzgibbon Hospital WBC9.2NOMS HealthcareCLINISYNCNCedar County Memorial Hospital Urinalysis macro (dipstick) panel (U)on [id number], UANegativeNegative - 4(70) +++ mg/dLNOME HealthcareBlood, UANegativeNegative - 50 Jose/mcLNOME HealthcareClarity, UAClearNOME HealthcareColor, UAYellowNOME HealthcareGlucose, UANegativeNegative - 2000(110) ++++ mg/dLSTEWARD HEALTH CARE SYSTEM HealthcareInterpretation and review of laboratory resultsNormalNOME HealthcareKetones, UANegativeNegative - 160(16) ++++ mg/dLSTEWARD HEALTH [facility] SYSTEM HealthcareLeukocytes, UANegativeNegative - 500+++ Onel/mcL NOM HealthcareNitrite, UANegativeNegative - PositiveNOMS HealthcarepH, UA5.55 - 9NOMS HealthcareProtein, UANegativeNegative - 2000(20) ++++ mg/dLNOMS Healthcare Spec Grav, UA1.0251 - 1.03NOMS HealthcareUrobilinogen, UA1.00.2 - 12 mg/dLNOMS HealthcareNOMS HealthcareUrinalysis macro (dipstick) panel (U)on 10-17-2024 Bilirubin, UANegativeNegative - 4(70) +++ mg/dLNOMS HealthcareBlood, UANegative Negative - 50 Jose/mcLNOMS HealthcareClarity, UAClearNOMS HealthcareColor, UA YellowNOMS HealthcareGlucose, UANegativeNegative - 2000(110) ++++ mg/dLNOMS HealthcareInterpretation and review of laboratory resultsAbnormalNOMS Healthcare Ketones, UANegativeNegative - 160(16) ++++ mg/dLNOMS HealthcareLeukocytes, UA PositiveNegative - 500+++ Onel/mcLNOMS HealthcareComment on above:smallNitrite, UANegativeNegative - PositiveNOMS HealthcarepH, UA75 - 9NOMS HealthcareProtein, UANegativeNegative - 2000(20) ++++ mg/dLNOMS HealthcareSpec Grav, UA1.0151 - 1.03NOMS HealthcareUrobilinogen, UA0.20.2 - 12 mg/dLNOMS HealthcareNOMS HealthcareALL CBC WITH AUTO DIFFon 54-71-9361KJPHYLBKU ABSOLUTE HADY0RIVC HealthcareBasophils/100 WBC (Bld)0.2 %0.2 - 2.0 %NOMS HealthcareEosinophils/100 WBC (Bld)3.2 %0.9 - 7.0 %NOMS HealthcareErythrocyte distribution width (RBC) [Ratio]12.5 %11.0 - 15.0 %NOMS HealthcareHematocrit (Bld) [Volume fraction]37.9 %36.0 - 48.0 %NOMS HealthcareHemoglobin (Bld) [Mass/Vol]13.2 g/dL12.0 - 16.0 g/dLNOMS HealthcareIMMATURE GRANULOCYTES ABS AUTO0.14HighNOMS HealthcareImmature granulocytes/100 WBC (Bld)1.5 %High0.0 - 0.5 %NOMS HealthcareInterpretation and review of laboratory resultsAbnormalNOME HealthcareLYMPHOCYTES ABSOLUTE AUTO2 NOM HealthcareLymphocytes/100 WBC (Bld)20.8 %20.5 - 60.0 %[facility] HospitalH (RBC) [Entitic mass]30.9 pg26.7 - 34.0 pgNOMissouri Baptist Medical CenterHC (RBC) [Mass/Vol] 34.8 g/dL29.9 - 35.2 g/dLSaint Alexius HospitalV (RBC) [Entitic vol]88.8 fL81.0 - 99.0 fLNOMissouri Delta Medical CenterMONOCYTES ABSOLUTE AUTO0.7NOME HealthcareMonocytes/100 WBC (Bld)7.2 %1.7 - 12.0 %NOM HealthcareNEUTROPHILS ABSOLUTE AUTO6.3NOMS Healthcare Neutrophils/100 WBC (Bld)67.1 %43.0 - 75.0 %NOM HealthcarePlatelet mean volume (Bld) [Entitic vol]11.1 fL9.5 - 13.5 fLSTEWARD HEALTH CARE SYSTEM HealthcareTBH EO #0.3NOMS Healthcare TBH FJY263NAMRMissouri Delta Medical CenterTB RBC4.27NOMS HealthcareTBH WBC9.4NOMS Healthcare CLINISYNCNOMS HealthcareUS OB DETAIL ANATOMYon 95-63-0439GJ OB DETAIL ANATOMYInterpreted by: Ad Ovalle Indication ======== Screening for [...] family history of ADPCKD (in chart review, motherand brother have ADPCKD. Patient had renal imaging [...] EFW (oz) 12 oz EFW by: Hadlock (LZZ-CF-HH-FL) Extended Kiln Stoker 6.0 mm CM 4.4 mm 36% Nicolaides [...] Normal LVOT view: Normal 3-vessel view: Normal 8-mlzyks-hndxnzm view: Normal Heart / Thorax Situs: situs [...] upper leg: Normal L (more content not included)...[facility] HospitalUS for pregnancyon 79-08-5197Pjqdaocvqje by: Ad Ovalle Indication ======== Screening for [...] family history of ADPCKD (in chart review, motherand brother have ADPCKD. Patient had renal imaging [...] EFW (oz) 12 oz EFW by: Hadlock (YQU-KY-RL-FL) Extended Kiln Stoker 6.0 mm CM 4.4 mm 36% Nicolaides [...] Normal LVOT view: Normal 3-vessel view: Normal 0-hvokpg-qmmraix view: Normal Heart / Thorax Situs: situs [...] toes: Normal Lt (more content not included)... Ad Pardo MD - 10/07/2024 Interpreted by: Ad Ovalle Indication ======== Screening for Abnormalities, Conceived via Assisted Reproductive Technology History ====== General History Hcpodn639 cm Height (ft)5 ft Height (in)3 in Previous Outcomes Gravida1 Para0 Maternal Assessment Sgpywd385 cm Height (ft)5 ft Height (in)3 in Uymkxc57 kg Weight (lb)165 lb Weight gain0 kg [...] family history of ADPCKD (in chart review, motherand brother have ADPCKD. Patient had renal imaging [...] 87% Hadlock Femur32.4 mm20w 1d 73% Hadlock Acdipcy05.4 mm 45% Chitty HC / AC1.05 2% Hadlock SPC935 g20w 1d 91% Hadlock EFW (lb)0 lb EFW (oz)12 oz EFW by:Hadlock (JSO-GP-LC-FL) Extended Vp6.0 mm CM4.4 mm 36% Nicolaides Nasal bone4.7 mm Head / Face / Neck Cephalic index0.74 10% Nicolaides Nasal bone:present Extremities / Bony Struc FL / BPD0.74 92% Hadlock FL / HC0.20 96% Hadlock FL / AC0.21 35% Hadlock Other Structures CCX891 bpm Anatomy Cranium:Normal Lateral ventricles:Normal Choroid plexus:Normal [...] view:Normal RVOT view:Normal LVOT view:Normal 3-vessel view:Normal 4-xhprzj-vjvmhoi view:Normal Heart / Thorax Situs:situs solitus (normal) [...] leg:Normal Lt lower leg:Normal (more content not included)...[facility] Work Phone: Source Facility: [facility] Interpreted by: Ad Ovalle Indication ======== [...] family history of ADPCKD (in chart review, motherand brother have ADPCKD. Patient had renal imaging [...] EFW (oz) 12 oz EFW by: Hadlock (FAY-PZ-TN-FL) Extended Kiln Stoker 6.0 mm CM 4.4 mm 36% Nicolaides [...] Normal LVOT view: Normal 3-vessel view: Normal 7-snquxf-bieklqf view: Normal Heart / Thorax Situs: situs [...] leg: Normal Rt lower (more content not included)...Radiology, Radiologist, MD - 10/07/2024 Source Facility: [facility] Interpreted by: Ad Ovalle Indication ======== [...] family history of ADPCKD (in chart review, motherand brother have ADPCKD. Patient had renal imaging [...] EFW (oz) 12 oz EFW by: Hadlock (VHC-KG-AB-FL) Extended Kiln Stoker 6.0 mm CM 4.4 mm 36% Nicolaides [...] Normal LVOT view: Normal 3-vessel view: Normal 4-tjywvr-xfznhyo view: Normal Heart / Thorax Situs: situs [...] arm: Normal Lt forear (more content not included)...[facility] SystemRad[facility] (n[facility]ative)[facility] Work Phone: Radiology Study observation (narrative)[facility] US for pregnancyOrdered By: Ad Ovalle on 95-18-8729LjamiphvivMercy Health St. [facility] Work Phone: US for pregnancyOrdered By: Radiologist Radiology on 04-61-5563ULJMFreeman Health System Work Phone: RECURRENT VAGINITIS (HTRX)on 06-61-1656YSPMMHHYI FJHLCXR2SPUO HealthcareATOPOBIUM VAGINAENot detectedNOME HealthcareBVAB 2,3 (BACTERIAL VAGINOSIS ASSOCIATED BACTERIA 2, 3); MOBILUNCUS [id number] Healthcare BVAB 2,3 (BACTERIAL VAGINOSIS ASSOCIATED BACTERIA 2, 3); MOBILUNCUS SPPNot detectedNOMS HealthcareCANDIDA ALBICANS, PARAPSILOSIS, [id number] HealthcareCANDIDA ALBICANS, PARAPSILOSIS, TROPICALISNot detectedNOMS Healthcare PRESTON [id number] HealthcareCANDIDA GLABRATANot detectedNOMS Healthcare PRESTON [id number] HealthcareCANDIDA KRUSEINot detectedNOMS HealthcareCHLAMYDIA FGUHPIKQJFV2MAMY HealthcareCHLAMYDIA TRACHOMATISNot detectedNOMS Healthcare GARDNERELLA MAUAAVTZE1WVHC HealthcareGARDNERELLA VAGINALISNot detectedNOMS HealthcareMEGASPHAERA (TYPES 1, 2)0NOMS HealthcareMEGASPHAERA (TYPES 1, 2)Not detectedNOMS HealthcareMYCOPLASMA [id number] HealthcareMYCOPLASMA GENITALIUMNot detectedNOMS HealthcareNEISSERIA FLKJZBDOBAO4WQGC Healthcare NEISSERIA GONORRHOEAENot detectedNOMS HealthcareTRICHOMONAS CDUULJSQZ9BCBM HealthcareTRICHOMONAS VAGINALISNot detectedNOMS HealthcareNOMS Healthcare Urinalysis macro (dipstick) panel (U)on 74-68-5910Kpihzbzas, UANegativeNegative - 4(70) +++ mg/dLNOMS HealthcareBlood, UANegativeNegative - 50 Jose/mcLNOMS HealthcareClarity, UAClearNOMS HealthcareColor, UAYellowNOMS HealthcareGlucose, UANegativeNegative - 2000(110) ++++ mg/dLNOMS HealthcareInterpretation and review of laboratory resultsAbnormalNOMS HealthcareKetones, UANegativeNegative - 160(16) ++++ mg/dLNOMS HealthcareLeukocytes, UAPositiveNegative - 500+++ Onel/mcL NOMS HealthcareComment on above:smallNitrite, UANegativeNegative - PositiveNOMS HealthcarepH, UA65 - 9NOMS HealthcareProtein, UANegativeNegative - 2000(20) ++++ mg/dLNOMS HealthcareSpec Grav, UA1.031 - 1.03NOMS HealthcareUrobilinogen, UA0.2 0.2 - 12 mg/dLNOMS HealthcareNOMS HealthcareALL CBC WITH AUTO DIFFon 08-29-2024 BASOPHILS ABSOLUTE HNTX5LRES HealthcareBasophils/100 WBC (Bld)0.2 %0.2 - 2.0 % NOMS HealthcareEosinophils/100 WBC (Bld)2.9 %0.9 - 7.0 %NOMS Healthcare Erythrocyte distribution width (RBC) [Ratio]12 %11.0 - 15.0 %[facility] Hematocrit (Bld) [Volume fraction]39.3 %36.0 - 48.0 %[facility] SystemHemoglobin (Bld) [Mass/Vol]13.6 g/dL12.0 - 16.0 g/dLFreeman Health SystemIMMATURE GRANULOCYTES ABS AUTO0.06HighNOMissouri Delta Medical CenterImmature granulocytes/100 WBC (Bld)0.7 %High0.0 - 0.5 %[facility] HealthcareInterpretation and review of laboratory resultsAbnormLifecare Hospital of Chester CountyLYMPHOCYTES ABSOLUTE AUTO2.1NOMS [facility] SystemLymphocytes/100 WBC (Bld) 25.4 %20.5 - 60.0 %[facility] HospitalH (RBC) [Entitic mass]30.2 pg26.7 - 34.0 pg [facility] HospitalHC (RBC) [Mass/Vol]34.6 g/dL29.9 - 35.2 g/dLFreeman Health SystemMCV (RBC) [Entitic vol]87.3 fL81.0 - 99.0 fLFreeman Health SystemMONOCYTES ABSOLUTE AUTO 0.5NOMS [facility] SystemMonocytes/100 WBC (Bld)5.8 %1.7 - 12.0 %[facility] NEUTROPHILS ABSOLUTE AUTO5.5NOMissouri Delta Medical CenterNeutrophils/100 WBC (Bld)65 %43.0 - 75.0 %[facility] SystemPlatelet mean volume (Bld) [Entitic vol]10.9 fL9.5 - 13.5 fLFreeman Health SystemTB EO #0.2NOMS The Metrohealth SystemTB PGX848FKBPFitzgibbon Hospital RBC4.5 [facility] SystemTB WBC8.4NOMissouri Delta Medical CenterCLINISYNCNCedar County Memorial HospitalUrinalysis macro (dipstick) panel (U)on 64-05-8698Ifxdgqbmp, UANegativeNegative - 4(70) +++ mg/dL NOM HealthcareBlood, UANegativeNegative - 50 Jose/mcLNOME HealthcareClarity, UA ClearNOMS HealthcareColor, UAYellowNOMS HealthcareGlucose, UANegativeNegative - 2000(110) ++++ mg/dLSTEWARD HEALTH CARE SYSTEM HealthcareInterpretation and review of laboratory resultsAbnormalNOMS HealthcareKetones, UANegativeNegative - 160(16) ++++ mg/dL NOMS HealthcareLeukocytes, UAPositiveNegative - 500+++ Onel/mcLNOMS Healthcare Comment on above:smallNitrite, UANegativeNegative - PositiveNOMS HealthcarepH, UA65 - 9NOMS HealthcareProtein, UANegativeNegative - 2000(20) ++++ mg/dLNOMS HealthcareSpec Grav, UA1.0251 - 1.03NOMS HealthcareUrobilinogen, UA0.20.2 - 12 mg/dLNOME HealthcareNOMS HealthcareHCG ( test) Ql (U)on 07-29-2024 Interpretation and review of laboratory resultsAbnormalNOMS HealthcarePreg Test, UrPositiveNegativeNOCrittenton Behavioral Health HealthcareUrinalysis macro (dipstick) panel (U)on 71-89-8972Rnvmbdzty, UANegativeNegative - 4(70) +++ mg/dLNOMS HealthcareBlood, UAPositiveNegative - 50 Jose/mcLNOMS HealthcareComment on above: traceClarity, UAClearNOMS HealthcareColor, UAYellowNOMS HealthcareGlucose, UA NegativeNegative - 2000(110) ++++ mg/dLNOMS HealthcareInterpretation and review of laboratory resultsAbnormalNOMS HealthcareKetones, UANegativeNegative - 160(16) ++++ mg/dLNOMS HealthcareLeukocytes, UAPositiveNegative - 500+++ Onel/mcL NOMS HealthcareComment on above:smallNitrite, UANegativeNegative - PositiveNOMS HealthcarepH, UA5.55 - 9NOMS HealthcareProtein, UANegativeNegative - 2000(20) ++++ mg/dLNOMS HealthcareSpec Grav, UA1.031 - 1.03NOME HealthcareUrobilinogen, UA0.20.2 - 12 mg/dLNOMissouri Delta Medical CenterNOME HealthcarePROGESTERONEon 07-12-2024 AGKILZJIWWAZ93.5 ng/mLNormalQuest DiagnosticsComment on above:Result Comment: Reference Ranges Female Follicular Phase < 1.0 Luteal Phase 2.6-21.5 Post menopausal < 0.5 1st Trimester 4.1-34.0 2nd Trimester 24.0-76.0 3rd Trimester 52.0-302.0Performed By: #### 745 #### [facility] [address], [address] [place] [address] Latrine Cleaner: Alexey Boogie MDUS OB TRANSVAGINALon 00-33-5021PL OB TRANSVAGINALInterpreted by: Juan Chavarria Indication ======== Confirm Gestational [...] by U/S 6 w + 5 d BOROKE by U/S: 03/01/2025 Assigned: based on the [...] of transvaginal evaluation for early dating. View: SufficientNormalUniversity Hospitals Hodge Medical CenterChoriogonadotropin.beta subuniton 06-30-2024 HCG.beta subunit [id number] m[IU]/mLHigh<[address] [place], [place] [address]Comment on above:Order Comment: Total HCG measurement is performed using the Faith Cristopher Access Immunoassay which detects intact HCG and free beta HCG subunit. This test is not indicated for use as a tumor marker. HCG testing is performed using a different test methodology at [facility] than other [facility]. Direct result comparison should only be made within the same method.Result Comment: Low-level positive HCG results can be seen in early , in mia- or post-menopausal females due to normal pituitary HCG production, or with analytic interference. Repeat testing in 48-72 hours can aid in assessing for as results should double in this time period. FSH measurement is recommended in mia- or post- menopausal females as concurrent elevation of FSH can support pituitary production as the source of the HCG elevation.Performed By: #### 66107-4 #### JOSEPH ESQUIVEL ([id number]) [facility] ([facility] [address] [place] [address]25[address]Avrjguzdedldpbkucj.beta subuniton 77-82-5406UGV.beta subunit Qn330 m[IU]/mLHigh<[address] [place], [place] [address]Comment on above:Order Comment: Total HCG measurement is performed using the Faith Questa Access Immunoassay which detects intact HCG and free beta HCG subunit. This test is not indicated for use as a tumor marker. HCG testing is performed using a different test methodology at [facility] than other [facility]. Direct result comparison should only be made within the same method.Result Comment: Low-level positive HCG results can be seen in early , in mia- or post-menopausal females due to normal pituitary HCG production, or with analytic interference. Repeat testing in 48-72 hours can aid in assessing for as results should double in this time period. FSH measurement is recommended in mia- or post- menopausal females as concurrent elevation of FSH can support pituitary production as the source of the HCG elevation.Performed By: #### 72611-1 #### JOSEPH ESQUIVEL ([id number]) [facility] ([facility]) [address] [place] [address]Hmueurypeoh 02-34-9915A9 [Mass/Vol]378 pg/mLNChildren's Hospital for RehabilitationComment on above:Order Comment: REF VALUES FOLLICULAR PHASE 20-144 MID CYCLE 64-357 LUTEAL PHASE 56-214 POSTMENOPAUSE < 32 PREPUBERTY < 20 FEMALE 10-18Y 8-110 MALE 10-18Y < 20 ADULT MALE < 40 Estradiol measurement is performed using the Faith FlowBelow Aero Access Estradiol Immunoassay. Estradiol testing is performed using a different test methodology at [facility] than other [facility]. Direct result comparison should only be made within the same method.Performed By: #### 2243-4 #### JOSEPH ESQUIVEL ([id number]) [facility] ([facility]) [address] [place] [address]Mamtjjfkeevaoj 45-11-7685Tgmbvzwnjsnn [Mass/Vol]42.6 ng/mL [facility] HospitalComment on above:Order Comment: REF VALUES Male <0.2-0.8 Follicular Phase <0.2-1.5 Luteal Phase 7.4-15.4 Post Menopausal <0.2-0.2 1ST Trimester 12.0-84.0 2ND Trimester 10.2-58.8 3RD Trimester 46.5-160 Progesterone is performed using the Faith FlowBelow Aero Access Immunoassay. Progesterone testing is performed using a different test methodology at [facility] than other [facility]. Direct result comparison should only be made within the same method.Performed By: #### 2839-9 #### JOSEPH ESQUIVEL ([id number]) [facility] ([facility]) [address] [place] [address]48[address]Rv Panel Informationon 54-41-8393QxirabJuan Chavarria MD 06/13/2024 11:25 AM Embryo Transfer [...] Preop diagnosis: Infertility Post op diagnosis: Same Optic Fibre Drawer: none Depth: 7 cm Curve: anterior Distance [...] Juan Chavarria 06/13/24 11:24 AM [facility] Work Phone: Progesteroneon [phone] [Mass/Vol]45.0 ng/mLNOhioHealth Hardin Memorial HospitalComment on above:Order Comment: REF VALUES Male <0.2-0.8 Follicular Phase <0.2-1.5 Luteal Phase 7.4-15.4 Post Menopausal <0.2-0.2 1ST Trimester 12.0-84.0 2ND Trimester 10.2-58.8 3RD Trimester 46.5-160 Progesterone is performed using the Faith FlowBelow Aero Access Immunoassay. Progesterone testing is performed using a different test methodology at [facility] than other [facility]. Direct result comparison should only be made within the same method.Performed By: #### 2839-9 #### ORA MOHAN ([id number]) [facility] ([facility] [address] [place] [address]Plqkuxkysjn 48-76-7282L4 [Mass/Vol]2870 pg/mLNChildren's Hospital for RehabilitationComment on above:Order Comment: REF VALUES FOLLICULAR PHASE 20-144 MID CYCLE 64-357 LUTEAL PHASE 56-214 POSTMENOPAUSE < 32 PREPUBERTY < 20 FEMALE 10-18Y 8-110 MALE 10-18Y < 20 ADULT MALE < 40Performed By: #### 2243-4 #### JOSEPH ESQUIVEL ([id number]) [facility] ([facility]) [address] [place], [place] [address]Kjwigyxhoxvdzn 56-18-3920Yhmmypklokno [Mass/Vol]0.4 ng/mL [facility] HospitalComment on above:Order Comment: REF VALUES Male <0.2-0.8 Follicular Phase <0.2-1.5 Luteal Phase 7.4-15.4 Post Menopausal <0.2-0.2 1ST Trimester 12.0-84.0 2ND Trimester 10.2-58.8 3RD Trimester 46.5-160 Progesterone is performed using the Incluyeme.com Access Immunoassay. Progesterone testing is performed using a different test methodology at [facility] than other [facility]. Direct result comparison should only be made within the same method.Result Comment: Ref Values Male <0.3- 1.2 Follicular Phase <0.3- 1.4 Luteal Phase 3.3-25.6 Mid-Luteal Phase 4.4-28.0 Postmenopausal <0.3- 0.7 Females: 1st Trimester 11.2- 90.0 2nd Trimester 25.6- 89.4 3RD Trimester 48.4-422.5 Patients receiving DHEA-S supplements may show false elevation of progesterone for results near 1.0ng/mL. Contact laboratory at [phone] if alternative testing is needed.Performed By: #### 2839-9 #### JOSEPH ESQUIVEL ([id number]) [facility] ([facility]) [address] [place], [place] [address]EJL US PELVIS LIMITED FOLLICLES-FOLLICLE STUDIES PERFORMEDon 84-75-8456RIF US PELVIS LIMITED FOLLICLES-FOLLICLE STUDIES PERFORMEDFollicle scan performed with follicle measurements in report. and Trilaminar appearance to the endometrium is noted.[facility] Estradiolon 52-63-1205P6 [Mass/Vol]558 pg/mLNChildren's Hospital for RehabilitationComment on above:Order Comment: REF VALUES FOLLICULAR PHASE 20-144 MID CYCLE 64-357 LUTEAL PHASE 56-214 POSTMENOPAUSE < 32 PREPUBERTY < 20 FEMALE 10-18Y 8-110 MALE 10-18Y < 20 ADULT MALE < 40Performed By: #### 2243-4 #### JOSEPH ESQUIVEL ([id number]) [facility] ([facility]) [address] [place], [place] [address]Wpeyuugq Diameter USon 42-26-3165Pnapbrzloa appearance to the endometrium is noted. RIS SECTRA ONLYSt. [facility] Work Phone: Radiology Study observation (narrative)[facility] Work Phone: Progesteroneon [phone] [Mass/Vol]0.8 ng/mLNChildren's Hospital for RehabilitationComment on above:Order Comment: REF VALUES Male <0.2-0.8 Follicular Phase <0.2-1.5 Luteal Phase 7.4-15.4 Post Menopausal <0.2-0.2 1ST Trimester 12.0-84.0 2ND Trimester 10.2-58.8 3RD Trimester 46.5-160 Progesterone is performed using the Faith FlowBelow Aero Access Immunoassay. Progesterone testing is performed using a different test methodology at [facility] than other [facility]. Direct result comparison should only be made within the same method.Result Comment: Ref Values Male <0.3- 1.2 Follicular Phase <0.3- 1.4 Luteal Phase 3.3-25.6 Mid-Luteal Phase 4.4-28.0 Postmenopausal <0.3- 0.7 Females: 1st Trimester 11.2- 90.0 2nd Trimester 25.6- 89.4 3RD Trimester 48.4-422.5 Patients receiving DHEA-S supplements may show false elevation of progesterone for results near 1.0ng/mL. Contact laboratory at [phone] if alternative testing is needed.Performed By: #### 2839-9 #### JOSEPH ESQUIVEL ([id number]) [facility] ([facility]) [address] [place], [place] [address]VXW US ENDOMETRIAL LINING CHECKon 09-96-8690TAE US ENDOMETRIAL LINING CHECKTrilaminar appearance to the endometrium is noted.[facility]ier HospitalNo Panel Informationon 74-14-2341UsvuwtJuna Chavarria MD 03/22/2024 9:44 AM Egg Retrieval [...] diagnosis: Female infertility Post op diagnosis: Same Optic Fibre Drawer: Dr. Warren IV Fluids: 600 cc EBL: 5 cc UOP: Not recorded Specimen: Oocytes Complications: None Number of Oocytes right ovary: 16 Ovarian access (right): Easy Number of Oocytes left ovary: 9 Ovarian access (left): Easy Endometrial thickness: n/a Needle type: Single Additional notes:[facility] Work Phone: Lutropinon 37-20-0110Mujkvtzd Qn29.3 IU/LNAdena Regional Medical CenterComment on above:Result Comment: LH Reference Values Follicular Phase 1.5-10.0 Mid-Cycle 13.0-72.0 Luteal Phase 0.5-13.0 Menopause 15.0-65.0 Pre-puberty 0- 3.0 Children 0- 6.0 Adult Male 1.0- 9.0 Luteinizing Hormone is performed using the Faith Questa Access Immunoassay. LH testing is performed using a different test methodology at [facility] than other [facility]. Direct result comparison should only be made within the same method.Performed By: #### 98245-9 #### SHAI Pickard ([id number]) [facility] ([facility]) [address] [place] [address]Mswwuiwiiixuhb 49-29-9904Zmqkqaiiddxm [Mass/Vol]4.5 ng/mL [facility] Montpelier HospitalComment on above:Order Comment: HIV Ag/Ab screen is performed using the Siemens Atellica HIV Ag/Ab Combo assay whichdetects the presence of HIV p24 antigen as well as antibodies to HIV-1 (Group M and O) and HIV-2. No laboratory evidence of HIV infection. If acute HIV infection is suspected, consider testing for HIV RNA by PCR (viral load).Performed By: #### 99247-0 #### SHAI Pickard ([id number]) [facility] ([facility]) [address] [place] [address] [id number] [Mass/Vol]Ordered By: Bela Rich on 15-26-3865USG VALUES FOLLICULAR PHASE 20-144 MID CYCLE 64-357 LUTEAL PHASE 56-214 POSTMENOPAUSE < 32 PREPUBERTY < 20 FEMALE 10-18Y 8-110 MALE 10-18Y < 20 ADULT MALE < 40 Estradiol measurement is performed using the Faith Cristopher Access Estradiol Immunoassay. Estradiol testing is performed using a different test methodology at [facility] than other [facility]. Direct result comparison should only be made within the same method.[facility] Memorial HospitalEstradiolOrdered By: Bela Rich on [id number] [Mass/Vol]4909 pg/mLSt. Charles HospitalEstradiolon 61-55-6820S0 [Mass/Vol]4909 pg/mLNChillicothe VA Medical CenterComment on above:Order Comment: HIV Ag/Ab screen is performed using the Siemens Atellica HIV Ag/Ab Combo assay whichdetects the presence of HIV p24 antigen as well as antibodies to HIV-1 (Group M and O) and HIV-2. No laboratory evidence of HIV infection. If acute HIV infection is suspected, consider testing for HIV RNA by PCR (viral load).Performed By: #### 08679-5 #### SHAI Pickard ([id number]) [facility] ([facility]) [address] [place] [address]Lzsqvbcc Diameter USon 93-75-7970Clhyskps scan performed with follicle measurements in report. RIS SECTRA ONLYSt. [facility] Hospital Work Phone: Radiology Study observation (narrative)[facility] Work Phone: Progesteroneon 05-86-8531Fhhwtywpghmc [Mass/Vol]1.3 ng/mLUnMercy Health St. Rita's Medical CenterProgesterone [Mass/Vol]1.3 ng/mLNormal [facility] EastComment on above:Order Comment: HIV Ag/Ab screen is performed using the Siemens Atellica HIV Ag/Ab Combo assay whichdetects the presence of HIV p24 antigen as well as antibodies to HIV-1 (Group M and O) and HIV-2. No laboratory evidence of HIV infection. If acute HIV infection is suspected, consider testing for HIV RNA by PCR (viral load).Performed By: #### 67235-0 #### SHAI Pickard ([id number]) [facility] ([facility]) [address] [place] [address] 87572Cqteazsdcvzu [Mass/Vol]on 78-77-5960RDI VALUES Male <0.2-0.8 Follicular Phase <0.2-1.5 Luteal Phase 7.4-15.4 Post Menopausal <0.2-0.2 1ST Trimester 12.0-84.0 2ND Trimester 10.2-58.8 3RD Trimester 46.5-160 Progesterone is performed using the Faith Questa Access Immunoassay. Progesterone testing is performed using a different test methodology at [facility] than other [facility]. Direct result comparison should only be made within the same method.[facility] GeneralREI US PELVIS LIMITED FOLLICLES-FOLLICLE STUDIES PERFORMEDon 82-99-3163RIX US PELVIS LIMITED FOLLICLES-FOLLICLE STUDIES PERFORMEDFollicle scan performed with follicle measurements in report.Normal [facility] EastEstradiolon 73-46-0777H5 [Mass/Vol] 3760 pg/mLNormalUnCincinnati VA Medical CenterComment on above: Order Comment: HIV Ag/Ab screen is performed using the Siemens Atellica HIV Ag/Ab Combo assay whichdetects the presence of HIV p24 antigen as well as antibodies to HIV-1 (Group M and O) and HIV-2. No laboratory evidence of HIV infection. If acute HIV infection is suspected, consider testing for HIV RNA by PCR (viral load).Performed By: #### 65926-5 #### SHAI Pickard ([id number]) [facility] ([facility]) [address] [place], [place] [address]Arrzycjk Diameter USon 87-44-7065Qncercfi scan performed with follicle measurements in report. RIS SECTRA ONLYSt[facility] Work Phone: Radiology Study observation (narrative)[facility] Work Phone: Progesteroneon 27-77-4783Jyhqvfeytyvg [Mass/Vol]1.1 ng/mLNormalRegency Hospital Cleveland EastComment on above:Order Comment: HIV Ag/Ab screen is performed using the Siemens Atellica HIV Ag/Ab Combo assay whichdetects the presence of HIV p24 antigen as well as antibodies to HIV-1 (Group M and O) and HIV-2. No laboratory evidence of HIV infection. If acute HIV infection is suspected, consider testing for HIV RNA by PCR (viral load).Performed By: #### 73208-9 #### SHAI Pickard ([id number]) [facility] ([facility]) [address] [place] [address] 60602WMH US PELVIS LIMITED FOLLICLES-FOLLICLE STUDIES PERFORMEDon 70-85-9132XEO US PELVIS LIMITED FOLLICLES-FOLLICLE STUDIES PERFORMEDFollicle scan performed with follicle measurements in report.NormalRegency Hospital Cleveland EastE2 [Mass/Vol]on 60-69-0473QSZ VALUES FOLLICULAR PHASE 20-144 MID CYCLE 64-357 LUTEAL PHASE 56-214 POSTMENOPAUSE < 32 PREPUBERTY < 20 FEMALE 10-18Y 8-110 MALE 10-18Y < 20 ADULT MALE < 40 Estradiol measurement is performed using the Faith Cristopher Access Estradiol Immunoassay. Estradiol testing is performed using a different test methodology at [facility] than other [facility]. Direct result comparison should only be made within the same method.[facility]. Charles HospitalUnMercy Health St. Rita's Medical CenterEstradiolon 62-12-9007O1 [Mass/Vol] 1462 pg/mLSt. Charles HospitalE2 [Mass/Vol]1462 pg/mLNormal [facility] EastComment on above:Order Comment: HIV Ag/Ab screen is performed using the Siemens Atellica HIV Ag/Ab Combo assay whichdetects the presence of HIV p24 antigen as well as antibodies to HIV-1 (Group M and O) and HIV-2. No laboratory evidence of HIV infection. If acute HIV infection is suspected, consider testing for HIV RNA by PCR (viral load).Performed By: #### 47730-3 #### SHAI Pickard ([id number]) [facility] ([facility]) [id number] [place] [address] 42442Wryltyoa Diameter USon 25-83-2431Hoabjqhr scan performed with follicle measurements in report. Trilaminar appearance to the endometrium is noted. Physiologic free fluid is noted in the cul de sac. Notably retroverted uterus. Two small complex ovarian cysts noted, one on the left and one on the right. [facility] SECTRA ONLYRadiology Study observation (narrative)[facility] Work Phone: Follicle Diameter USOrdered By: Leigh Ann Tuttle on 24-28-5851ZixevyxlivSt. Charles Hospital Work Phone: Progesteroneon 26-24-1603Aohqbkniteng [Mass/Vol]0.6 ng/mLNChillicothe VA Medical CenterComment on above:Order Comment: HIV Ag/Ab screen is performed using the Siemens AtellScalIT HIV Ag/Ab Combo assay whichdetects the presence of HIV p24 antigen as well as antibodies to HIV-1 (Group M and O) and HIV-2. No laboratory evidence of HIV infection. If acute HIV infection is suspected, consider testing for HIV RNA by PCR (viral load).Performed By: #### 64943-2 #### SHAI Pickard ([id number]) [facility] ([facility]) [id number] [place] [address] 25688WFT US PELVIS LIMITED FOLLICLES-FOLLICLE STUDIES PERFORMEDon 91-82-7781AKQ US PELVIS LIMITED FOLLICLES-FOLLICLE STUDIES PERFORMEDFollicle scan performed with follicle measurements in report. Trilaminar appearance to the endometrium is noted. Physiologic free fluid is noted in the cul de sac. Notably retroverted uterus. Two small complex ovarian cysts noted, one on the left and one on the right.[facility] HospitalE2 [Mass/Vol]on 42-13-8201NFT VALUES FOLLICULAR PHASE 20-144 MID CYCLE 64-357 LUTEAL PHASE 56-214 POSTMENOPAUSE < 32 PREPUBERTY < 20 FEMALE 10-18Y 8-110 MALE 10-18Y < 20 ADULT MALE < 40 Estradiol measurement is performed using the Faith Cristopher Access Estradiol Immunoassay. Estradiol testing is performed using a different test methodology at [facility] other [facility]. Direct result comparison should only be made within the same method.St. Charles HospitalUnMercy Health St. Rita's Medical CenterEstradiolon [id number] [Mass/Vol]721 pg/mLSt. Charles HospitalE2 [Mass/Vol]721 pg/mLNChillicothe VA Medical CenterComment on above:Order Comment: REF VALUESFOLLICULAR PHASE 20-144MID CYCLE 64-357LUTEAL PHASE 56-214POSTMENOPAUSE < 32PREPUBERTY < 20FEMALE 10-18Y 8-110MALE 10-18Y < 20ADULT MALE < 40Estradiol measurementis performed using the Faith Questa Access Estradiol Immunoassay. Estradiol testing is performedusing a different test methodology at [facility] than other [facility]. Direct resultcomparison should only be made within the same method.Performed By: #### 30908-3 #### SHAI Pickard ([id number]) [facility] ([facility]) [address] [place], [place] [address]Follicle Diameter USon 49-41-5864Ycnwhrod scan performed with follicle measurements in report., Trilaminar appearance to the endometrium is noted., and Free fluid is noted in the cul de sac. RIS SECTRA ONLYUnMercy Health St. Rita's Medical Center Work Phone: Radiology Study observation (narrative)[facility] Work Phone: REI US PELVIS LIMITED FOLLICLES-FOLLICLE STUDIES PERFORMEDon 57-12-4581IDU US PELVIS LIMITED FOLLICLES-FOLLICLE STUDIES PERFORMED Follicle scan performed with follicle measurements in report., Trilaminar appearance to the endometrium is noted., and Free fluid is noted in the cul de sac.[facility] HospitalE2 [Mass/Vol]on 92-93-3442HKF VALUES FOLLICULAR PHASE 20-144 MID CYCLE 64-357 LUTEAL PHASE 56-214 POSTMENOPAUSE < 32 PREPUBERTY < 20 FEMALE 10-18Y 8-110 MALE 10-18Y < 20 ADULT MALE < 40 Estradiol measurement is performed using the Faith Questa Access Estradiol Immunoassay. Estradiol testing is performed using a different test methodology at [facility] than other [facility]. Direct result comparison should only be made within the same method.St. Charles HospitalUnMercy Health St. Rita's Medical CenterEstradiolon [id number] [Mass/Vol] pg/mLpg/mLUnMercy Health St. Rita's Medical CenterE2 [Mass/Vol]pg/mLNormalUnCincinnati VA Medical CenterComment on above:Order Comment: REF VALUESFOLLICULAR PHASE 20-144MID CYCLE 64-357LUTEAL PHASE 56-214POSTMENOPAUSE < 32PREPUBERTY < 20FEMALE 10-18Y 8-110MALE 10-18Y < 20ADULT MALE < 40Estradiol measurementis performed using the Faith Cristopher Access Estradiol Immunoassay. Estradiol testing is performedusing a different test methodology at [facility] than other [facility]. Direct resultcomparison should only be made within the same method.Performed By: #### 40131-2 #### SHAI Pickard ([id number]) [facility] ([facility]) [address] [place], [place] [address]Follicle Diameter USon 74-81-4041Baocmfwi scan performed with follicle measurements in report., Trilaminar appearance to the endometrium is noted., and Free fluid is noted in the cul de sac. RIS SECTRA ONLYRadiology Study observation (narrative)[facility] Work Phone: Follicle Diameter USOrdered By: Alicia Morgan on 15-60-6855SukwgjnpexMercy Health St. Rita's Medical Center Work Phone: Hematocrit Auto (Bld) [Volume fraction]on 03-09-2024 Hematocrit (Bld) [Volume fraction]43.2 %36.0 - 46.0 %St. Charles HospitalInterpretation and review of laboratory resultsNormalUniversCommunity Hospital NorthUnMercy Health St. Rita's Medical CenterHematocrit (Bld) [Volume fraction]43.2 %Jvveck30.0-46.0[facility] Comment on above:Performed By: #### 33267-6 #### SHAI FINNNAYA Pickard ([id number]) [facility] ([facility]) [address] [place], [place] [address]VFW US PELVIS LIMITED FOLLICLES-FOLLICLE STUDIES PERFORMEDon 31-98-6910XGJ US PELVIS LIMITED FOLLICLES-FOLLICLE STUDIES PERFORMEDFollicle scan performed with follicle measurements in report., Trilaminar appearance to the endometrium is noted., and Free fluid is noted in the cul de sac.Normal [facility] EastNo Panel Informationon 02-23-2024 Juan Chavarria MD 02/23/2024 9:22 AM Egg [...] diagnosis: Female infertility Post op diagnosis: Same Optic Fibre Drawer: none IV Fluids: 500 cc EBL: 5 cc UOP: Not recorded Specimen: Oocytes Complications: None Number of Oocytes right ovary: 17 Ovarian acc ss (right): Easy Number of Oocytes left ovary: 13 Ovarian access (left): Easy Endometrial thickness: n/a Needle type: Single Additional notes:[facility] Work Phone: Lutropinon 53-65-7335Falttddz Qn35.3 IU/LNormal [facility] EastComment on above:Result Comment: LH Reference Values Follicular Phase 1.5-10.0 Mid-Cycle 13.0-72.0 Luteal Phase 0.5-13.0 Menopause 15.0-65.0 Pre-puberty 0- 3.0 Children 0- 6.0 Adult Male 1.0- 9.0 Luteinizing Hormone is performed using the Faith Questa Access Immunoassay. LH testing is performed using a different test methodology at [facility] than other [facility]. Direct result comparison should only be made within the same method.Performed By: #### 72388-0 #### SHAI Pickard ([id number]) [facility] ([facility]) [id number] [place] [address] 55153Hdkecenkdsiklw 00-88-4277Qwgkwjjvknlg [Mass/Vol]5.0 ng/mL [facility] HospitalComment on above:Order Comment: REF VALUESMale <0.2-0.8Follicular Phase <0.2-1.5Luteal Phase 7.4- 15.4Post Menopausal <0.2-0.21ST Trimester 12.0-84.02ND Trimester 10.2-58.83RD Trimester 46.5-160Progesterone is performed using the Faith FlowBelow Aero Access Immunoassay.Progesterone testing is performed using a different test methodology at [facility] than other [facility]. Direct result comp arison should only be made within the same method.Performed By: #### 84389-4 #### SHAI Pickard ([id number]) [facility] ([facility]) [address] [place] [address] [id number] [Mass/Vol]Ordered By: Janet Infante on 05-07-8793BME VALUES FOLLICULAR PHASE 20-144 MID CYCLE 64-357 LUTEAL PHASE 56-214 POSTMENOPAUSE < 32 PREPUBERTY < 20 FEMALE 10-18Y 8-110 MALE 10-18Y < 20 ADULT MALE < 40 Estradiol measurement is performed using the Faith FlowBelow Aero Access Estradiol Immunoassay. Estradiol testing is performed using a different test methodology at [facility] than other [facility]. Direct result comparison should only be made within the same method.[facility]. Charles HospitalUnMercy Health St. Rita's Medical CenterEstradiolOrdered By: Janet Infante on 49-07-5654B1 [Mass/Vol]5153 pg/mLSt. Charles HospitalEstradiolon 11-50-4827R8 [Mass/Vol]5153 pg/mLNormalRegency Hospital Cleveland EastComment on above:Order Comment: REF VALUESFOLLICULAR PHASE 20-144MID CYCLE 64-357LUTEAL PHASE 56-214POSTMENOPAUSE < 32PREPUBERTY < 20FEMALE 10-18Y 8- 110MALE 10-18Y < 20ADULT MALE < 40Estradiol measurementis performed using the Faith Questa Access Estradiol Immunoassay. Estradiol testing is performed using a different test methodology at [facility] than other [facility]. Direct resultcomparison should only be made within the same method. Performed By: #### 32252-2 #### SHAI Pickard ([id number]) [facility] ([facility]) [address] [place], [place] [id number] Diameter USon 71-02-7710Npldnmkc scan performed with follicle measurements in report. RIS SECTRA ONLYRadiology Study observation (narrative)[facility] Work Phone: Follicle Diameter USOrdered By: Juan Chavarria on 44-45-9022BqbtzbuowfSt. Charles Hospital Work Phone: Luteinizing Hormone (LH)on 06-60-7255Nufwyhdk Qn0.9 m[IU]/mLIU/Community Memorial HospitalComment on above:LH Reference Values Follicular Phase 1.5-10.0 Mid-Cycle 13.0-72.0 Luteal Phase 0.5-13.0 Menopause 15.0-65.0 Pre-puberty 0- 3.0 Children 0- 6.0 Adult Male 1.0- 9.0 Luteinizing Hormone is performed using the Faith FlowBelow Aero Access Immunoassay. LH testing is performed using a different test methodology at [facility] than other [facility]. Direct result comparison should only be made within the same method. Lutropinon 40-52-3793Totmlhgv Qn0.9 IU/LNormalRegency Hospital Cleveland EastComment on above:Result Comment: LH Reference Values Follicular Phase 1.5-10.0 Mid-Cycle 13.0-72.0 Luteal Phase 0.5-13.0 Menopause 15.0-65.0 Pre-puberty 0- 3.0 Children 0- 6.0 Adult Male 1.0- 9.0 Luteinizing Hormone is performed using the Faith FlowBelow Aero Access Immunoassay. LH testing is performed using a different test methodology at [facility] than other [facility]. Direct result comparison should only be made within the same method.Performed By: #### 99444-3 #### SHAI Pickard ([id number]) [facility] ([facility]) [id number] [place] [address]65[address]Jmzpgwac Qnon 62-97-7823RmnluqmgetMercy Health St. Rita's Medical Center Progesteroneon 61-58-2984Smgnbwloscmd [Mass/Vol]1.3 ng/mLUnMercy Health St. Rita's Medical CenterProgesterone [Mass/Vol]1.3 ng/mLNormalRegency Hospital Cleveland EastComment on above:Order Comment: REF VALUESMale <0.2-0.8Follicular Phase <0.2-1.5Luteal Phase 7.4-15.4Post Menopausal <0.2-0.21ST Trimester 12.0- 84.02ND Trimester 10.2-58.83RD Trimester 46.5-160Progesterone is performed using the Faith FlowBelow Aero Access Immunoassay.Progesterone testing is performed using a different test methodology at [facility] than other [facility]. Direct result comparison should only be made within the same method. Performed By: #### 5196-1 #### SHAI Pickard ([id number]) [facility] ([facility]) [address] [place], [place] [address]Skyjqjwrvxpv [Mass/Vol]on 32-96-8260KCH VALUES Male <0.2-0.8 Follicular Phase <0.2-1.5 Luteal Phase 7.4-15.4 Post Menopausal <0.2-0.2 1ST Trimester 12.0-84.0 2ND Trimester 10.2-58.8 3RD Trimester 46.5-160 Progesterone is performed using the Faith FlowBelow Aero Access Immunoassay. Progesterone testing is performed using a different test methodology at [facility] than other [facility]. Direct result comparison should only be made within the same method.[facility] GeneralREI US PELVIS LIMITED FOLLICLES-FOLLICLE STUDIES PERFORMEDon 81-48-4174OXC US PELVIS LIMITED FOLLICLES-FOLLICLE STUDIES PERFORMEDFollicle scan performed with follicle measurements in report.Normal [facility] EastEstradiolon 56-29-1086O3 [Mass/Vol] 3718 pg/mLNormalUnCincinnati VA Medical CenterComment on above: Order Comment: REF VALUESFOLLICULAR PHASE 20-144MID CYCLE 64-357LUTEAL PHASE 56- 214POSTMENOPAUSE < 32PREPUBERTY < 20FEMALE 10-18Y 8-110MALE 10-18Y < 20ADULT MALE < 40Estradiol measurementis performed using the Faith Cristopher Access Estradiol Immunoassay. Estradiol testing is performedusing a different test methodology at [facility] than other [facility]. Direct r esultcomparison should only be made within the same method.Performed By: #### 5196-1 #### SHAI Pickard ([id number]) [facility] ([facility]) [address] [place] [address] 54[address]Serpurraapwlwt 30-84-8249Erpvpptqixvd [Mass/Vol]1.4 ng/mL [facility] HospitalComment on above:Order Comment: REF VALUESMale <0.2-0.8Follicular Phase <0.2-1.5Luteal Phase 7.4- 15.4Post Menopausal <0.2-0.21ST Trimester 12.0-84.02ND Trimester 10.2-58.83RD Trimester 46.5-160Progesterone is performed using the Faith FlowBelow Aero Access Immunoassay.Progesterone testing is performed using a different test methodology at [facility] than other [facility]. Direct result comp arison should only be made within the same method.Performed By: #### 5196-1 #### SHAI Pickard ([id number]) [facility] ([facility]) [address] [place] [address] [id number] US PELVIS LIMITED FOLLICLES-FOLLICLE STUDIES PERFORMEDon 31-01-1587LUM US PELVIS LIMITED FOLLICLES-FOLLICLE STUDIES PERFORMEDFollicle scan performed with follicle measurements in report.[facility] HospitalE2 [Mass/Vol]on 06-52-1114TIG VALUES FOLLICULAR PHASE 20-144 MID CYCLE 64-357 LUTEAL PHASE 56-214 POSTMENOPAUSE < 32 PREPUBERTY < 20 FEMALE 10-18Y 8-110 MALE 10-18Y < 20 ADULT MALE < 40 Estradiol measurement is performed using the Faith FlowBelow Aero Access Estradiol Immunoassay. Estradiol testing is performed using a different test methodology at [facility] than other [facility]. Direct result comparison should only be made within the same method.[facility] HospitalUnMercy Health St. Rita's Medical CenterEstradiolon 64-81-0762K6 [Mass/Vol] 1472 pg/mLUnMercy Health St. Rita's Medical CenterE2 [Mass/Vol]1472 pg/mLNormal [facility] EastComment on above:Order Comment: REF VALUESFOLLICULAR PHASE 20-144MID CYCLE 64-357LUTEAL PHASE 56-214POSTMENOPAUSE < 32PREPUBERTY < 20FEMALE 10-18Y 8-110MALE 10-18Y < 20ADULT MALE < 40Estradiol measurementis performed using the Faith FlowBelow Aero Access Estradiol Immunoassay. Estradiol testing is performedusing a different test methodology at [facility] than other [facility]. Direct resultcomparison should only be made within the same method.Performed By: #### 5196-1 #### SHAI Pickard ([id number]) [facility] ([facility]) [address] [place] [address] 09538Zjzropwn Diameter USon 29-15-4162Gwedusbp scan performed with follicle measurements in report. Trilaminar appearance to the endometrium is noted. Free fluid is noted in the right paraovarian space. Notably retroverted uterus. RIS SECTRA ONLYRadiology Study observation (narrative)[facility] Work Phone: Follicle Diameter USOrdered By: Leigh Ann Tuttle on 78-54-0501UsqcftkiqdMercy Health St. Rita's Medical Center Work Phone: REI US PELVIS LIMITED FOLLICLES-FOLLICLE STUDIES PERFORMEDon 41-81-7037EYS US PELVIS LIMITED FOLLICLES-FOLLICLE STUDIES PERFORMED Follicle scan performed with follicle measurements in report. Trilaminar appearance to the endometrium is noted. Free fluid is noted in the right paraovarian space. Notably retroverted uterus.NormalUnCincinnati VA Medical CenterE2 [Mass/Vol]on 49-08-2480ZAC VALUES FOLLICULAR PHASE 20-144 MID CYCLE 64-357 LUTEAL PHASE 56-214 POSTMENOPAUSE < 32 PREPUBERTY < 20 FEMALE 10-18Y 8-110 MALE 10-18Y < 20 ADULT MALE < 40 Estradiol measurement is performed using the Faith Questa Access Estradiol Immunoassay. Estradiol testing is performed using a different test methodology at [facility] than other [facility]. Direct result comparison should only be made within the same method.[facility] Charles HospitalUnMercy Health St. Rita's Medical CenterEstradiolon 50-89-3362E4 [Mass/Vol]639 pg/mLUnMercy Health St. Rita's Medical CenterE2 [Mass/Vol]639 pg/mLNChillicothe VA Medical CenterComment on above:Order Comment: REF VALUESFOLLICULAR PHASE 20-144MID CYCLE 64-357LUTEAL PHASE 56-214POSTMENOPAUSE < 32PREPUBERTY < 20FEMALE 10-18Y 8-110MALE 10-18Y < 20ADULT MALE < 40Estradiol measurementis performed using the Faith FlowBelow Aero Access Estradiol Immunoassay. Estradiol testing is performedusing a different test methodology at [facility] than [facility]. Direct resultcomparison should only be made within the same method.Performed By: #### 5196-1 #### SHAI Pickard ([id number]) [facility] ([facility]) [address] [place] [address] [id number] US PELVIS LIMITED FOLLICLES-FOLLICLE STUDIES PERFORMEDon 74-00-1457XSB US PELVIS LIMITED FOLLICLES-FOLLICLE STUDIES PERFORMEDFollicle scan performed with follicle measurements in report. and Trilaminar appearance to the endometrium is noted.NormalRegency Hospital Cleveland East E2 [Mass/Vol]on 98-13-3809NAH VALUES FOLLICULAR PHASE 20-144 MID CYCLE 64-357 LUTEAL PHASE 56-214 POSTMENOPAUSE < 32 PREPUBERTY < 20 FEMALE 10-18Y 8-110 MALE 10-18Y < 20 ADULT MALE < 40 Estradiol measurement is performed using the Faith Cristopher Access Estradiol Immunoassay. Estradiol testing is performed using a different test methodology at [facility] than other [facility]. Direct result comparison should only be made within the same method.[facility] HospitalUnMercy Health St. Rita's Medical CenterEstradiolon 68-80-7431R1 [Mass/Vol] pg/mLpg/mLUnMercy Health St. Rita's Medical CenterE2 [Mass/Vol]pg/mLNChillicothe VA Medical CenterComment on above:Order Comment: REF VALUESFOLLICULAR PHASE 20-144MID CYCLE 64-357LUTEAL PHASE 56-214POSTMENOPAUSE < 32PREPUBERTY < 20FEMALE 10-18Y 8-110MALE 10-18Y < 20ADULT MALE < 40Estradiol measurementis performed using the Faith Cristopher Access Estradiol Immunoassay. Estradiol testing is performedusing a different test methodology at [facility] than [facility]. Direct resultcomparison should only be made within the same method.Performed By: #### 5196-1 #### SHAI Pickard ([id number]) [facility] ([facility]) [address] [place], [place] [address]Ikxmpfmd Diameter USon 74-09-9127Vkcrphvj scan performed with follicle measurements in report. MFMRadiology Study observation (narrative)[facility] Work Phone: Follicle Diameter USOrdered By: Juan Chavarria on 04-42-0021XygjfwnsksMercy Health St. Rita's Medical Center Work Phone: Hematocrit Auto (Bld) [Volume fraction]on 02-09-2024 Hematocrit (Bld) [Volume fraction]42.9 %36.0 - 46.0 %[facility]. Charles HospitalInterpretation and review of laboratory resultsNormTriHealth McCullough-Hyde Memorial HospitalUnMercy Health St. Rita's Medical CenterHematocrit (Bld) [Volume fraction]42.9 %Ucfhmn48.0-46.0UnCincinnati VA Medical Center Comment on above:Performed By: #### 4544-3 #### JOSEPH ESQUIVEL ([id number]) [facility] ([facility] [address] [place], [place] [address]GJK US PELVIS LIMITED FOLLICLES-FOLLICLE STUDIES PERFORMEDon 80-61-0763GJU US PELVIS LIMITED FOLLICLES-FOLLICLE STUDIES PERFORMEDFollicle scan performed with follicle measurements in report.NormalUnCincinnati VA Medical CenterHCG ( test) Ql (U)on 40-67-1165Aibrnvzbxjeojf and review of laboratory resultsNoSt. Elizabeth Hospital Work Phone: Preg Test, UrNegativeNegativeUnMercy Health St. Rita's Medical Center Work Phone: UnMercy Health St. Rita's Medical Center Work Phone: No Panel Informationon 50-91-3188UinrxldLeigh Ann Tuttle MD 01/28/2024 9:32 AM Polypectomy [...] details: Procedure completion: Tolerated well, no immediate complicationsREI LAB [facility] Work Phone: Surgical pathology studyon [id number] pathology studyPathology report.total SEE COMMENT Surgical Pathology Case: [id number] Authorizing Provider: Leigh Ann Tuttle MD Collected: 01/28/2024 1027 Ordering Location: [facility] Received: 01/28/2024 1027 [place] Pathologist: Yamila Leo MD Specimen: ENDOMETRIUM POLYPECTOMY Path report.final diagnosis SEE COMMENT A. ENDOMETRIUM, POLYPECTOMY: -- Minute cytologically normal glandular epithelium, insufficient for diagnostic evaluation Laboratory comment By the signature on this report, the individual or group listed as making the Final Interpretation/Diagnosis certifies that they have reviewed this case. Path report.relevant Hx endometrial polyps Path report.gross observation SEE COMMENT Received in formalin in a gauze sock, labeled with the patient's name, hospital number, are multiple irregular fragments of toth, rubbery tissue aggregating to 0.1 x 0.1 x 0.1 cm. The specimen may notsurvive processing. The specimen is entirely submitted in 1 cassette. [facility]/Memorial HospitalIGP,APTIMA HPV,AGE GDLNon 43-10-0057GSV LN ACOG TESTINGNote.[facility] HealthcareComment on above:TESTS RESULT FLAG UNITS REF RANGE LAB Clinician Provided Cytology Information Source.............Cervix;Endocervix No. of containers..01 ThinPrep Vial Age Arsh VALDEZ Telma... FLAG LEGEND: L-Low Normal,H-High Normal,LL-Alert Low,HH-Alert High <-Panic Low,>-Panic High,A-Abnormal,AA-Critical Abnormal Performed at: 01 =G [facility] [place] [address] Nidhi Fay MD, IGP, RFX APTIMA HPV ASCUNote.[facility] HealthcareComment on above:TESTS RESULT FLAG UNITS REF RANGE LAB DIAGNOSIS: 02 NEGATIVE FOR INTRAEPITHELIAL LESION OR MALIGNANCY. Specimen adequacy: 02 Satisfactory for evaluation. Endocervical and/or squamous metaplastic cells (endocervical component) are present. Performed by: Gaby Masters Waterproofer Helper (ASC) . 02 Note: Note 02 The [...] <-Panic Low,>-Panic High,A-Abnormal,AA-Critical Abnormal Performed at: [address] [facility] [address] [place] [address] Nidhi Fay MD, Performed at: =G - [facility] [address], [place] [id number] Cdl Driver: Nidhi Fay MD, Phone: [phone] Performed at: - [facility] [id number] Cdl Driver: Nidhi Fay MD, Phone: [phone] BRUSH-SPATULA CERVIX ENDOCERVIX CLINISYNCNOMS [facility] type and Indirect antibody screen panel (Bld)on 91-46-0467KFY group Nom (Bld)OULima Memorial HospitalBlood group antibody screen QlNegativeSt. Charles HospitalD Ag Ql (Bld)Positive ProMedica Memorial HospitalAB group Nom (Bld)ONChillicothe VA Medical CenterComment on above: Performed By: #### 99721-3 #### JOSEPH ESQUIVEL ([id number]) [facility] ([facility]) [address] [place] [address] USBlood group antibody screen QlNegativeNoNewark HospitalComment on above:Performed By: #### 52875-7 #### JOSEPH ESQUIVEL ([id number]) [facility] ([facility]) [address] Ag Ql (Bld)PositiveParkview Health Montpelier HospitalComment on above:Performed By: #### 79235-7 #### JOSEPH ESQUIVEL ([id number]) [facility] ([facility]) [address] trachomatis and N. gonorrhoeae DNA EDELMIRA+probe Nom (Unsp spec)on 2023. trachomatis rRNA EDELMIRA+probe Ql (Unsp spec)NegativeNormal [facility] SystemComment on above:Order Comment: The APTIMA Combo 2 assay is FDA-approved NAAT using target capture for the in vitro qualitative detection and differentiation of ribosomal RNA (rRNA) for Chlamydia trachomatis and Neisseria gonorrhoeae testing on clinician- collected endocervical, PreservCyt solution liquid Pap specimens, vaginal, throat, rectal, and male urethral swab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 SystemFtvlgwykuu05-52-0787 14:41-0400Body mass index (BMI) [Ratio]35.22 kg/g6Etrre Sherwin DO Work Phone: [facility] SystemObzynxbtki62-02-6631 14:41-0400Body ggepkq59.17 kgCorey Sherwin DO Work Phone: 1(838)287-[facility] SystemJaohpuegrq18-97-8276 14:41-0400Diastolic blood mm[Hg]Layo Sherwin DO Work Phone: 1(323)077-[facility] SystemJybljqwbih40-92-6021 14:41-0400Systolic blood gawwlewp825 mm[Hg]Layo Sherwin DO Work Phone: 1(540)784-[address] [place], [place] [address]Oteqzbpmqi60-80-1895 15:31-0400Body mass index (BMI) [Ratio]33.17 kg/m2Amy Sissy PA Work Phone: 1(313)864-[address] [place], [place] [address]Wektuanwyl31-14-0655 15:31-0400Body ragnol30.94 kgAmy Buffalo PA Work Phone: 1(078)455-[address] [place], [place] [address]Bkowcegoch83-49-9165 15:31-0400Diastolic blood yonoxwpf21 mm[Hg]Brandy Sissy PA Work Phone: 1(238)255-[address] [place], [place] [address]Obnckqymet27-45-4548 15:31-0400Systolic blood vdgdunij782 mm[Hg]Brandy Sissy PA Work Phone: 1(173)070-[facility] SystemBbpwcwqjto70-44-5617 13:08-0400Body mass index (BMI) [Ratio]32.2 kg/p5Skhgu Sherwin DO Work Phone: 1(678)552-[address] [place], [place] [address]Bzncrfvawv26-14-3916 13:08-0400Body ouzeie55.46 kgCorey Sherwin DO Work Phone: 1(317)067-[address] [place], [place] [address]Grbbgvljcz58-94-1224 13:08-0400Diastolic blood mivtfzof37 mm[Hg]Layo Sherwin DO Work Phone: 1(735)399-[facility] SystemTlctkyudch86-55-8973 13:08-0400Systolic blood exdjlzxe845 mm[Hg]Layo Sherwin DO Work Phone: [facility] SystemQlwzdbutnf14-86-6813 09:53-0400Body mass index (BMI) [Ratio]31.18 kg/m2[facility]03-28-2025 09:53-0400Body xjzogj52.83 kgR[facility]03-28-2025 09:53-0400Diastolic blood leomtshh59 mm[Hg][facility]03-28-2025 09:53-0400Systolic blood zahijcxr776 mm[Hg][facility]12-04-2024 14:04-0500Blood Pressure LocationConnerly Jauregui [phone]-KweojUniversity Hospitals [facility]12-04-2024 14:04-0500Diastolic blood djzuxgwl54 mm[Hg]Malloryly SethiLaurel 212-9964Ynevld-Hzkej[address] [place], [place] 4654212-04-2024 14:04-0500Heart rate80 /chetMallory Juventino 119-0792Ulkxma-Anqgh[address] [place], [place] 4654212-04-2024 14:04-8126DwT6% (BldA) [Mass fraction]100 %Mallory Jauregui 182-6524Vvjrne-IzirvUniversity Hospitals [facility]12-04-2024 14:04-0500Systolic blood esurdpyh707 mm[Hg]Mallory Juventino 797-6072Rnrpsq-DzjnfUniversity Hospitals [facility]11-19-2024 10:45-0500Diastolic blood wbdqadbh19 mm[Hg]Juan Chavarria MD Work Phone: [facility]11-19-2024 10:45-0500 Heart rate65 /Jael Chavarria MD Work Phone: [facility]11-19-2024 10:45-0500 Respiratory rate17 /Jael Chavarria MD Work Phone: [facility]11-19-2024 10:45-0500 SaO2% (BldA) [Mass fraction]100 %Juan Chavarria MD Work Phone: 1()[address] [place], [place] 7750611-19-2024 10:45-0500 Systolic blood rznqipgr93 mm[Hg]Juan Chavarria MD Work Phone: 1()[address] [place], [place] 7750611-19-2024 09:45-0500 Body ubtmejvdfrj89.3 [degF]Juan Chavarria MD Work Phone: 1()[address] [place], [place] 7750611-19-2024 08:29-0500 Body remhxt865 cmJuan Chavarria MD Work Phone: 1()[address] [place], [place] 7750611-19-2024 08:29-0500 Body mass index (BMI) [Ratio]29.25 kg/y6KetasyJuan Chavarria MD Work Phone: 1()[address] [place], [place] 7750611-19-2024 08:29-0500 Body .9 kgJuan Chavarria MD Work Phone: 1()[address] [place], [place] 7750610-22-2024 09:49-0400 Body jawwuebauvf53.7 [degF]Juan Chavarria MD Work Phone: 1()[address] [place], [place] 7750610-22-2024 09:49-0400 Diastolic blood nfldzuff30 mm[Hg]Juan Chavarria MD Work Phone: 1()[address] [place], [place] 7750610-22-2024 09:49-0400 Heart rate94 /Jael Chavarria MD Work Phone: 1()[address] [place], [place] 7750610-22-2024 09:49-0400 Respiratory rate22 /Jael Chavarria MD Work Phone: 1()[address] [place], [place] 7750610-22-2024 09:49-0400 SaO2% (BldA) [Mass fraction]100 %Juan Chavarria MD Work Phone: 1()[address] [place], [place] 7750610-22-2024 09:49-0400 Systolic blood ujeyarhi503 mm[Hg]Juan Chavarria MD Work Phone: 1()[address] [place], [place] 7750610-22-2024 07:27-0400 Body cmJoseph Aura MD Work Phone: 1()658-[address] [place], [place] 3546110-22-2024 07:27-0400 Body mass index (BMI) [Ratio]29.41 kg/p8OfvnmdJuan Chavarria MD Work Phone: 1()[address]10-22-2024 07:27-0400 Body .3 kgJuan Chavarria MD Work Phone: 1()[address]09-26-2024 10:31-0400 Diastolic blood xozcwavy24 mm[Hg]Leigh Ann Tuttle MD Work Phone: 1()[address]09-26-2024 10:31-0400 Heart rate71 /minLeigh Ann Tuttle MD Work Phone: 1()[address]09-26-2024 10:31-0400 Respiratory rate20 /Imani Tuttle MD Work Phone: 1()[address]09-26-2024 10:31-0400 SaO2% (BldA) [Mass fraction]100 %Leigh Ann Tuttle MD Work Phone: 1()[address]09-26-2024 10:31-0400 Systolic blood rhdagtow182 mm[Hg]Leigh Ann Tuttle MD Work Phone: 1()[address]09-26-2024 09:31-0400 Body fyjhmlbcjrw37.1 [degF]Leigh Ann Tuttle MD Work Phone: 1()[address]09-26-2024 08:48-0400 Body uxsmxh950 cmLeigh Ann Tuttle MD Work Phone: 1()[address]09-26-2024 08:48-0400 Body mass index (BMI) [Ratio]29.21 kg/m0HiwmouyLeigh Ann Tuttle MD Work Phone: 1()[address]09-26-2024 08:48-0400 Body ksybdv60.8 kgLeigh Ann Tuttle MD Work Phone: 1()499-3948[facility]09-12-2024 10:52-0400 Body mass index (BMI) [Ratio]29.43 kg/m2Brandy Sissy PA Work Phone: [facility] SystemSpbuoxxlij33-21-2452 10:52-0400Body xfemmw85.35 kgBrandy Sissy PA Work Phone: [facility] SystemFvcwolxmfi68-15-0454 10:52-0400Diastolic blood jakvragt92 mm[Hg]Brandy Sissy PA Work Phone: [facility] SystemQpehscugqx60-25-7934 10:52-0400Systolic blood gtnuqvgs876 mm[Hg]Brandy Sissy PA Work Phone: [facility] SystemYavodndptl02-86-4589 10:09-0400Body cm Juan Chavarria MD Work Phone: 1(216)[address]08-26-2024 10:09-0400 Body mass index (BMI) [Ratio]30.11 kg/p7YdcaqhJuan Chavarria MD Work Phone: 1(216)[address] [place], [place] 7750608-26-2024 10:09-0400 Body lvwfyw09.11 kgJuan Chavarria MD Work Phone: 1()[address] [place], [place] 7750608-26-2024 10:09-0400 Diastolic blood paoojubm07 mm[Hg]Juan Chavarria MD Work Phone: 1(216)[address] [place], [place] 7750608-26-2024 10:09-0400 Heart rate62 /minJuan Chavarria MD Work Phone: 1(216)[address] [place], [place] 7750608-26-2024 10:09-0400 Systolic blood kfcdrvuv625 mm[Hg]Juan Chavarria MD Work Phone: 1(216)[address] [place], [place] 7750608-09-2024 08:46-0400 Body ensxqh522 cmAruslan Thorpe APRN-APPLICATIONS ENGINEERING MANAGER Work Phone: 1(216)[address] [place], [place] 7750608-09-2024 08:46-0400 Body mass index (BMI) [Ratio]29.23 kg/c3XmkfzcTrish Thorpe APRN-APPLICATIONS ENGINEERING MANAGER Work Phone: [facility]08-09-2024 08:46-0400 Body wvakiq56.84 kgTrish Thorpe WAREHOUSE SPECIALIST-APPLICATIONS ENGINEERING MANAGER Work Phone: [facility]08-09-2024 08:46-0400 Diastolic blood mm[Hg]Trish Thorpe WAREHOUSE SPECIALIST-APPLICATIONS ENGINEERING MANAGER Work Phone: [facility]08-09-2024 08:46-0400 Heart rate72 /minTrish Thorpe WAREHOUSE SPECIALIST-APPLICATIONS ENGINEERING MANAGER Work Phone: [facility]08-09-2024 08:46-0400 Systolic blood xupfgpae919 mm[Hg]Trish Thorpe WAREHOUSE SPECIALIST-APPLICATIONS ENGINEERING MANAGER Work Phone: [facility]05-31-2024 11:14-0400 Blood Pressure LocationPrincess Rapp [address] [place], [place] 1914805-31-2024 11:14-0400Body uyjiyiyblgl23.24 [degF]Princess Rapp 678-3822Ldfhkb-Gbvvv[address] [place], [place] 4263305-31-2024 11:14-0400Diastolic blood enmclgec58 mm[Hg]Princess Rapp 117-9829Lwesnc-Wewik[address] [place], [place] 4263305-31-2024 11:14-0400Heart rate65 /Sincere Rapp 283-0009Dnnkxx-Axwee[address] [place], [place] 4263305-31-2024 11:14-6665EeS3% (BldA) [Mass fraction]98 %Princess Rapp 404-5476Ppccuy-Pudpw[address] [place], [place] 4263305-31-2024 11:14-0400Systolic blood ztrheher837 mm[Hg]Princess Rapp 091-1877Kodszv-Lvezr[address] [place], [place] 4263304-25-2024 17:44-0400Blood Pressure LocationPrincess Rapp 785-5024Sksekz-Rxbyq[address] [place], [place] 4263304-25-2024 17:44-0400Body lonyyoxkbei93.06 [degF]Princess Rapp [address] [place], [place] 1914804-25-2024 17:44-0400Diastolic blood hkfoadvz26 mm[Hg]Princess Rapp [address] [place], [place] 1914804-25-2024 17:44-0400Heart rate85 /Sincere Rapp [address] [place], [place] 1914804-25-2024 17:44-0400Respiratory rate14 /Sincere Rapp [address] [place], [place] 1914804-25-2024 17:44-0555YtJ1% (BldA) [Mass fraction]99 %Princess Rapp [address] [place], [place] 1914804-25-2024 17:44-0400Systolic blood oyckbhzh829 mm[Hg]Princess Rapp [address] [place], [place] 1914810-19-2023 07:41-0400Body vrziwmjqsfy91.7 [degF]Princess Rapp [address] [place], [place] 1914810-19-2023 07:41-0400Diastolic blood azznzbyq06 mm[Hg]Princess Rapp [address] [place], [place] 1914810-19-2023 07:41-0400Heart rate81 /Sincere Rapp [address] [place], [place] 1914810-19-2023 07:41-5122CpM7% (BldA) [Mass fraction]99 %Princess Rapp [address] [place], [place] 1914810-19-2023 07:41-0400Systolic blood mm[Hg]Princess Rapp [address] [place], [place] 1914803-23-2022 16:57-0400Blood Pressure LocationLeigh Ann [place] 385-9234Ghluhy-WhcvsMer[facility] 03-23-2022 16:57-0400Body anwdwlxrbff58.7 [degF]Leigh Ann [place] 903-9089Bugmiv-CpemwMer[facility] 03-23-2022 16:57-0400Diastolic blood mm[Hg] Leigh Ann [place] 713-7312Cpfidf-QhdjjMercy [facility] 03-23-2022 16:57-0400Heart rate88 /minLeigh Ann Covington 107-8835Hiiluy-ZkbqrMercy Health [facility] 03-23-2022 16:57-0545MkP9% (BldA) [Mass fraction]99 % Leigh Ann [place] 900-0257Youyyu-KivudMercy Health – [facility] 03-23-2022 16:57-0400Systolic blood krpjjobh892 mm[Hg] Leigh Ann [place] [phone]-QsksoMercy Health – [facility] Encounters Encounter DateEncounter TypeCare ProviderFacilityStart: 02-14-2025 End: 94-78-3935drqqggjgemBCWLE FAZIONot AvailableStart: 02-14-2025 End: 49-90-8515Zvesmydy flow sheetCorey Sherwin DO Work Phone: [facility] David OBGYNComment on above:Third trimester ([facility]); 37 weeks gestation of ([facility])Start: 02-14-2025 End: 11-36-6927Juduab flowsheetCorey Sherwin DO Work Phone: [facility] [place] OBGYNStart: 02-14-2025 End: 41-56-8679Gsiycr flowsheetCorey Sherwin DO Work Phone: [facility] [place] OBGYNStart: 02-07-2025 End: 27-25-6419Inrhle flowsheetKristina Cesar MENTAL HEALTH AIDE Work Phone: [facility] David OBGYNStart: 02-07-2025 End: 89-42-8184Jpeibw flowsheetKristina Cesar MENTAL HEALTH AIDE Work Phone: [facility] OBGYNStart: 02-07-2025 End: 07-77-9843Eukhhcrci Result EncounterCorey Sherwin DO Work Phone: [facility] External Department UnsolicitedStart: 02-07-2025 End: 91-43-9438Vvewwijg flow sheetKristina Cesar MENTAL HEALTH AIDE Work Phone: [facility] David OBGYNComment on above:Third trimester ([facility]); 36 weeks gestation of ([facility])Start: 02-07-2025 End: 76-68-9511btkjadbogbRRETVSHX EBERLYNot AvailableStart: 02-01-2025 End: 33-74-2943Crhtwxvxn Result EncounterCorey Sherwin DO Work Phone: [facility] External Department UnsolicitedStart: 02-01-2025 End: 77-20-5816Fayiqqzst Result EncounterCorey Sherwin DO Work Phone: [facility] External Department UnsolicitedStart: 01-31-2025 End: 07-42-4553Ndjqaj flowsheetKristina Cesar MENTAL HEALTH AIDE Work Phone: [facility] OBGYNStart: 01-31-2025 End: 60-77-9195Fdauqz flowsheetKristina Cesar MENTAL HEALTH AIDE Work Phone: [facility] [place] OBGYNStart: 01-31-2025 End: 70-46-9091jbcwoojqlwIHKAKULO EBERLYNot AvailableStart: 01-31-2025 End: 97-98-2386Abxbxpnv flow sheetMaryloufaraz Cesar MENTAL HEALTH AIDE Work Phone: [facility] [place] OBGYNComment on above:Third trimester ([facility]); 35 weeks gestation of ([facility]); Encounter for in vitro fertilizationStart: 01-25-2025 End: 47-43-8214Zcweobjou Result EncounterCorey Sherwin DO Work Phone: NOWV External Department UnsolicitedStart: 01-25-2025 End: 26-63-1835Bdiljjwll Result EncounterCorey Sherwin DO Work Phone: [facility] External Department UnsolicitedStart: 01-24-2025 End: 93-61-8024Nndgijlms Result EncounterCorey Sherwin DO Work Phone: NOVI External Department UnsolicitedStart: 01-24-2025 End: 78-54-9869Xnydlpvrc Result EncounterCorey Sherwin DO Work Phone: NOQH External Department UnsolicitedStart: 01-18-2025 End: 32-64-9791Ivdqnpyeu Result EncounterCorey Sherwin DO Work Phone: NOEH External Department UnsolicitedStart: 01-18-2025 End: 17-02-7850Ygkdaleaj Result EncounterCorey Sherwin DO Work Phone: noms External Department UnsolicitedStart: 01-16-2025 End: 00-49-2598Tgdplyqg flow sheetCorey Sherwin DO Work Phone: NONI David OBGYNComment on above:33 weeks gestation of ([facility]); Third trimester ([facility]); Group B streptococcal infection; resulting from in vitro fertilization in first trimester ([facility]) Start: 01-16-2025 End: 22-11-2416fmvhywmfcePIHRF FAZIONot AvailableStart: 01-16-2025 End: 90-74-3887Nshbmc flowsheetCorey Sherwin DO Work Phone: [facility] [place] OBGYNStart: 01-16-2025 End: 99-24-3535Oortpl flowsheetCorey Sherwin DO Work Phone: [facility] [place] OBGYNStart: 01-10-2025 End: 73-16-1565Fgufhzhzi Result EncounterCorey Sherwin DO Work Phone: [facility] External Department UnsolicitedStart: 01-10-2025 End: 06-78-7842Llpuqviso Result EncounterCorey Sherwin DO Work Phone: [facility] External Department UnsolicitedStart: 01-03-2025 End: 94-57-6254Xufwif flowsheetCorey Sherwin DO Work Phone: [facility] [place] OBGYNStart: 01-03-2025 End: 32-84-8428Zffube flowsheetCorey Sherwin DO Work Phone: [facility] [place] OBGYNStart: 01-03-2025 End: 72-28-9486Rnfghxjr flow sheetCorey Sherwin DO Work Phone: [facility] David OBGYNComment on above:Third trimester ([facility]); 31 weeks gestation of ([facility]); resulting from in vitro fertilization in third trimester ([facility]) Start: 01-03-2025 End: 29-60-2501qnfffnuwhrHHQYH FAZIONot AvailableStart: 12-19-2024 End: 35-75-3388Hamhzumu flow sheetCorey Sherwin DO Work Phone: [facility] [place] OBGYNComment on above:29 weeks gestation of ([facility]); Third trimester ([facility]); Leukocytes in urine; Other microscopic hematuriaStart: 12-19-2024 End: 45-43-9206jbjgyawakiCEODN FAZIONot AvailableStart: 12-06-2024 End: 91-02-5960Eprkjj flowsheetCorey Sherwin DO Work Phone: [facility] Marieue OBGYNStart: 12-06-2024 End: 87-19-7217Dtqozj flowsheetCorey Sherwin DO Work Phone: [facility] David OBGYNStart: 12-06-2024 End: 44-94-7374Yjxbpknfc Result EncounterCorey Sherwin DO Work Phone: noms External Department UnsolicitedStart: 12-06-2024 End: 26-44-1165Rxditfnb flow sheetCorey Sherwin DO Work Phone: [facility] [place] OBGYNComment on above:27 weeks gestation of ([facility]); Second trimester ([facility])Start: 12-06-2024 End: 39-67-6578fllgbhudygEQETN FAZIONot AvailableStart: 11-26-2024 End: 91-13-3883Gxlperegg Result EncounterCorey Sherwin DO Work Phone: noms External Department UnsolicitedStart: 11-26-2024 End: 86-44-0824Adnnjbtup Result EncounterCorey Sherwin DO Work Phone: noms External Department UnsolicitedStart: 11-08-2024 End: 44-05-7892Qujzsjum flow sheetCorey Sherwin DO Work Phone: NOMS BCP OBComment on above:Second trimester ([facility]); 26 weeks gestation of ([facility]); Diabetes mellitus screeningStart: 11-08-2024 End: 88-68-1812asopxcmmjnASFVD FAZIONot AvailableStart: 10-17-2024 End: 20-65-9446Ybypdl flowsheetCorey Sherwin DO Work Phone: [facility] BCP OBStart: 10-17-2024 End: 87-91-1913Xakdun flowsheetCorey Sherwin DO Work Phone: [facility] BCP OBStart: 10-17-2024 End: 56-67-1420Uamhjspl flow sheetCorey Sherwin DO Work Phone: NOMS BCP OBComment on above:Acute bilateral low back pain without sciatica (Primary Dx); Second trimester ([facility]); 20 weeks gestation of ([facility])Start: 10-17-2024 End: 98-58-4305gtjxuxisjePYDNZ FAZIONot AvailableStart: 10-11-2024 End: 46-99-5863Nsytqylj flow sheetCorey Sherwin DO Work Phone: NOEK BCP OBComment on above:Second trimester ; 19 weeks gestation of ; PruritusStart: 10-11-2024 End: 79-68-6896gbmntlerrtUPKXP FAZIONot AvailableStart: 10-11-2024 End: 32-13-8823Asxivq flowsheetCorey Sherwin DO Work Phone: [facility] BCP OBStart: 10-11-2024 End: 27-20-3807Gzxfyq flowsheetCorey Sherwin DO Work Phone: NOIL BCP OBStart: 10-11-2024 End: 40-09-9505Zenegfext Result EncounterCorey Sherwin DO Work Phone: NOYQ External Department UnsolicitedStart: 10-07-2024 End: 15-06-0282Bnekfbmcd Result EncounterCorey Sherwin DO Work Phone: noms External Department UnsolicitedStart: 10-07-2024 End: 93-47-5332Uklhleuxr Result EncounterCorey Sherwin DO Work Phone: noms External Department UnsolicitedStart: 10-07-2024 End: 80-26-1467Wjjdbgkcwb hospital visit by physicianMac [id number] Obgynimg Ultrasound 1 [facility] Chanel PavilionComment on above: ([facility]) Start: 10-07-2024 End: 57-34-8794lzlsvlggxtIMQTX VINH EVACleveland Clinic Fairview Hospitaltart: 09-22-2024 End: 71-07-1788yznomldmfjFEO RAMEYNot AvailableStart: 09-06-2024 End: 10-88-3169Cjxpihxm flow sheetBrandy SEARS Work Phone: NOMS BCP OBComment on above:STD exposure; Second trimester ; 14 weeks gestation of ; Screening, , for anatomic surveyStart: 09-06-2024 End: 92-73-9533lrojrlyzazBVR RAMEYNot AvailableStart: 09-06-2024 End: 92-29-2612Shximy flowsheetBrandy SEARS Work Phone: NOMS BCP OBStart: 09-06-2024 End: 07-76-2487Zbtpxg flowsheetBrandy SEARS Work Phone: NOMS BCP OBStart: 09-06-2024 End: 80-85-9388Rrdbkfmh Result EncounterBrandy SEARS Work Phone: NOMS External Department UnsolicitedStart: 08-29-2024 End: 64-35-7271Bhzlnuppe Result EncounterCorey Sherwin DO Work Phone: NOMS External Department UnsolicitedStart: 08-29-2024 End: 44-53-1851Ahmvtsinv Result EncounterCorey Sherwin DO Work Phone: NOMS External Department UnsolicitedStart: 08-08-2024 End: 88-37-2520Tnjgvr flowsheetCorey Sherwin DO Work Phone: NOMS BCP OBStart: 08-08-2024 End: 45-18-3425Ptudoa flowsheetCorey Sherwin DO Work Phone: NOMS BCP OBStart: 08-08-2024 End: 71-81-5323Lbjyfdia flow sheetCorey Sherwin DO Work Phone: NOMS BCP OBComment on above:10 weeks gestation of ; First trimester pregnancyStart: 08-08-2024 End: 18-22-4925snuqwovnmpAKBLE FAZIONot AvailableStart: 07-29-2024 End: 94-98-2289Dpeote outpatient visit 5 minutesNoms Bcp Ob Sherwin NurseNOMS BCP OBComment on above:GA: 7f7uVeymg: 07-29-2024 End: 56-96-2377biclcnknfvJSIUI FAZIONot AvailableStart: 07-11-2024 End: 24-16-6729Shxfngq encounter procedureDonya Abernathy SMITH Work Phone: [facility] Chanel PavilionComment on above:Fertility testing (Primary Dx); Encounter to determine viability of , single or unspecified fetus Start: 07-11-2024 End: 08-53-6305bzijcrktupLQZQ L [facility]: 06-30-2024 End: 45-69-9833wwajkbfvfkWTTAVWCleveland Clinic Hillcrest Hospitaltart: 06-23-2024 End: 72-34-5223papkccgpfwCwebjmexozThe Surgical Hospital at Southwoodstart: 06-23-2024 End: 86-67-2240vdvwzkuradZMGAOACleveland Clinic Hillcrest Hospitaltart: 06-13-2024 End: 77-02-4471Ebrjxqgpcp hospital visit by physicianJuan Chavarria MD Work Phone: Valeria PurcellilionComment on above:Encounter for assisted reproductive fertility cycleStart: 06-13-2024 End: 75-57-4346fsjgkxtlajHIFVYG E FINDLEYWVUMedicine Barnesville Hospitaltart: 06-07-2024 End: 87-22-1451jtxuhpwzqkOXGP L [facility]: 06-06-2024 End: 88-33-2817oiofaekhapGvxroxvhtgThe Surgical Hospital at Southwoodstart: 06-06-2024 End: 77-60-7937Knzbxguikdvv / ancillary services managementMac [id number] Kelsy UltrasoundCopper Springs East Hospital WestComment on above:Female infertility Start: 06-06-2024 End: 68-57-3882jomvgkqopkMFQQ L [facility]: 05-23-2024 End: 30-42-9250tzwhbbslhnIGERZASelect Medical [facility], Avontart: 28-70-9147cudqlkrhsnXhqcsh E. NorcrossFacility:Jessica PCStart: 04-06-2024 End: 05-70-7009Enqqojd encounter Robert Jauregui [phone]-TmodeMer[facility] Health [facility] Start: 03-22-2024 End: 36-29-7600Ckwwdfeftp hospital visit by Pricilla Chavarria MD Work Phone: [facility]el PavilionComment on above:Encounter for assisted reproductive fertility cycleStart: 03-22-2024 End: 23-92-3291apxubybxzxBMDJTE E FINDLEYWVUMedicine Barnesville Hospitaltart: 03-21-2024 End: 69-68-2463wzrhfluajtFJPKZS [facility]tart: 03-20-2024 End: 49-19-8165Mgtiqesmfsxc / ancillary services managementMac Oba503 Kelsy UltrasoundUH Shaw Risman PavilionComment on above:Female infertilityStart: 03-20-2024 End: 01-48-1111dubouoctzbZXPE L [facility]tart: 03-19-2024 End: 79-32-9759Uqtolhsxvwgt / ancillary services managementMac [id number] Kelsy UltrasoundUH Shaw Risman PavilionComment on above:Female infertilityStart: 03-19-2024 End: 61-55-5136rcrenovwglTNVH L [facility]: 03-17-2024 End: 24-12-9344hqichvpmpoOWCETVCleveland Clinic Hillcrest Hospitaltart: 03-17-2024 End: 67-23-1186Bsdyymluxcqs / ancillary services managementMac [id number] Kelsy UltrasoundUH [facility] Risman PavilionComment on above:Female infertilityStart: 03-17-2024 End: 27-56-5360zjmvyesoyiYCNU L [facility]tart: 03-15-2024 End: 70-63-0527qrmxsdceigGIGLRISelect Medical [facility], Avontart: 03-15-2024 End: 60-44-8534bdxgffhbxyEFMR Melly [facility]: 03-15-2024 End: 14-37-8316Snqsgdrnbtdt / ancillary services managementMac [id number] Kelsy UltrasoundUH Valeria Chanel PavilionComment on above:Female infertilityStart: 03-09-2024 End: 99-75-0116eirzoacjaxIVPKQKCleveland Clinic Hillcrest Hospitaltart: 03-09-2024 End: 99-66-7839Zprpear encounter statusMac [facility] CenterStart: 03-09-2024 End: 59-67-6545Upvnesmhppoc / ancillary services managementMac [id number] Kelsy UltrasoundUH Shaw Risfadi PavilionComment on above:Female infertility; Pre-procedure lab examStart: 03-09-2024 End: 70-93-0034vkrcuxfbdtNNHN R [facility] Hospitaltart: 02-23-2024 End: 77-95-6847Nrmgzbtouz hospital visit by Pricilla Chavarria MD Work Phone: [facility] PavilionComment on above:Encounter for assisted reproductive fertility cycleStart: 02-23-2024 End: 86-91-4997pdglrjomxjHUZQLM E FINDLEYWVUMedicine Barnesville Hospitaltart: 02-22-2024 End: 61-93-2553afgiblclqnIDPQSMCleveland Clinic Hillcrest Hospitaltart: 02-21-2024 End: 57-65-1727Xjoclsinnijj / ancillary services managementMac Pmc626 Kelsy UltrasoundUH Shawmarilia Chanel PavilionComment on above:Female infertilityStart: 02-21-2024 End: 68-02-9965ywwvpogzakPAKA R [facility] Hospitaltart: 02-20-2024 End: 53-99-5997gvymyqwiybMKSWTXSelect Medical [facility], Avontart: 02-20-2024 End: 44-79-7310Zjfskwhmckev / ancillary services managementMac [id number] Kelsy UltrasoundUH Shaw Risfadi PavilionComment on above:Female infertilityStart: 02-20-2024 End: 69-91-7323qfslybjgqlDJWL R [facility]tart: 02-18-2024 End: 08-21-4747lokcsumyltXIBFYVCleveland Clinic Hillcrest Hospitaltart: 02-18-2024 End: 54-84-4581Uizjohpvgygx / ancillary services managementMac [id number] Kelsy [facility] Valeria Saeedfadi PavilionComment on above:Female infertilityStart: 02-18-2024 End: 21-69-0495zeujkkmvxvLFII R [facility]tart: 02-16-2024 End: 67-59-2062Zpzxophuzktk / ancillary services managementMac [id number] Kelsy [facility] WestComment on above:Female infertility Start: 02-16-2024 End: 00-82-4060onwjemjhcuMRLOCleveland Clinic [facility] Hospitaltart: 02-09-2024 End: 51-36-3609Pqlvoor encounter statusMac [facility] CenterStart: 02-09-2024 End: 32-89-5293Nzpvrlpunurd / ancillary services managementMac [id number] Kelsy [facility] WestComment on above:Pre-procedure lab exam; Female infertilityStart: 02-09-2024 End: 86-68-5635btsleoahytLLIS R [facility]tart: 02-02-2024 End: 71-97-6480cnnernqzmkPTWLZUSelect Medical [facility], Avontart: 01-28-2024 End: 96-78-3165Eymbloegmn hospital visit by physicianLeigh Ann Tuttle MD Work Phone: [facility] PavilionComment on above: Endometrial polypStart: 01-28-2024 End: 05-77-7700mdxquavlntHGUXFZY D [facility] Hospitaltart: 01-25-2024 End: 98-04-2145bkhvzbtebaZBVDZNSelect Medical [facility], Avontart: 01-25-2024 End: 35-57-3486Epicxoruj for preprocedural laboratory examinationProMedica Toledo Hospitaltart: 01-14-2024 End: 55-14-4879Exvpuu Prabha SEARS Work Phone: NOME BCP OBStart: 01-14-2024 End: 61-89-3343Yiksts flowsheetBrandy Sheehan ORION Work Phone: noms BCP OBStart: 01-14-2024 End: 98-08-3101Cxawjntaf Result EncounterBrandy Sheehan ORION Work Phone: noms External Department UnsolicitedStart: 01-14-2024 End: 15-60-7221Pqhpgjt encounter procedureBrandy Sheehan ORION Work Phone: [facility] Work Phone: Start: 01-14-2024 End: 90-41-2269Qdioghke preventive med est patient 18-39 yrsAmy Sissy ORION Work Phone: noms BCP OBComment on above:Well woman exam with routine gynecological examStart: 12-28-2023 End: 71-47-8744Usjuuli encounter procedureJuan Chavarria MD Work Phone: uh [facility] WestComment on above: Fertility testing [Z31.41] (Primary Dx); 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 [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, 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]Start: 12-28-2023 End: 46-36-9200wmnjsccbklRBIFZH E FINDLEYWVUMedicine Barnesville Hospitaltart: 12-25-2023 End: 61-47-8418xttfnrhjwgNHHVCV I [facility] Centertart: 2023 End: 15-17-0097ukjackutwlJOTDXB BROWNWVUMedicine Barnesville Hospitaltart: 2023 End: 58-53-6765Tzjffnz encounter procedureTrish Thorpe WAREHOUSE SPECIALIST-APPLICATIONS ENGINEERING MANAGER Work Phone: uh [facility] WestComment on above: Encounter for screening for other viral diseases (Primary Dx); Encounter for Rh blood typing; Screening for STDs (sexually transmitted diseases); Genetic screening; Fertility testing; Female infertility associated with male factorsStart: 2023 End: 04-59-1143Gntxjgr encounter statusTrish Thorpe WAREHOUSE SPECIALIST-APPLICATIONS ENGINEERING MANAGER Work Phone: [facility] Work Phone: Start: 2023 End: 99-27-2747dlpllinwhhQZYLXG M [facility]tart: 2023 End: 26-61-7906Tywafmice for blood typingTRISH Polo [facility] Hospitaltart: 78-99-6482dknczvqbavAueplxlew L Clark Facility:[place] PCStart: 10-02-2023 End: 14-76-8308tjezovzduzZzhdxuumk L ClarkFacility:[place] PCStart: 10-02-2023 End: 45-42-3893Cxsyqkm encounter procedurePrincess Rapp [phone]-PrhvtMercy Health [facility] Start: 08-27-2023 End: 06-22-8751xvaofhahqoGqmygzevg L ClarkFacility:[place] PCStart: 08-27-2023 End: 61-66-0898Bwijqtb encounter procedurePrincess Rapp [phone]-XquvwMercy Health – [facility] Start: 03-25-2023 End: 08-27-8451Ggdvual encounter procedurePrincess Rapp [phone]-IfyfmMercy Health – [facility] Start: 02-19-2023 End: 25-87-0986Spfnijl encounter procedurePrincess Rapp [phone]-NrzicMercy Health – [facility] Start: 07-26-2022 End: 68-06-6582bhgskwyripID LAYO SHERWIN .Facility:B9Kfvqz: 07-23-2022 End: 43-98-0859gvmqmtxtljPU LAYO SHERWIN .Facility:N9Xabxj: 07-24-2021 End: 96-22-1268Qzsdstc encounter procedureLeigh Ann Covington [phone]-AaqadMercy Health – The Jewish Hospital Primary Care Procedures DateProcedureProcedure DetailPerforming ClinicianStart: 66-55-1717Glbbg dip stick/tablet rgnt non-auto w/o micrscpCorey Sherwin DO Work Phone: Start: 48-99-9898PP OB BPP W NON-STRESSCorey Sherwin DO Work Phone: Start: 99-59-4560Vlfuz dip stick/tablet rgnt non-auto w/o micrscpKristina Cesar MENTAL HEALTH AIDE Work Phone: Start: 55-24-0105VG OB BPP W NON-STRESSCorey Sherwin DO Work Phone: Start: 13-64-6967PI OB GROWTHCorey Sherwin DO Work Phone: Start: 47-76-1312Xdjyo dip stick/tablet rgnt non-auto w/o micrscpKristina Cesar MENTAL HEALTH AIDE Work Phone: Start: 68-55-4664IO OB BPP W NON-STRESSCorey Sherwin DO Work Phone: Start: 85-04-6639AQ OB BPP W NON-STRESSCorey Sherwin DO Work Phone: Start: 99-66-3195AI OB BPP W NON-STRESSCorey Sherwin DO Work Phone: Start: 01-53-7304Goyvz dip stick/tablet rgnt non-auto w/o micrscpCorey Sherwin DO Work Phone: Start: 50-67-4942GV OB BPP W NON-STRESSCorey Sherwin DO Work Phone: Start: 99-49-8017Wujex dip stick/tablet rgnt non-auto w/o micrscpCorey Sherwin DO Work Phone: Start: 46-88-0997Nvtoo dip stick/tablet rgnt non-auto w/o micrscpCorey Sherwin DO Work Phone: Start: 84-65-0751KRNOWXY TOLERANCE 3 HOURCorey Sherwin DO Work Phone: Start: 93-45-8024Sfutk dip stick/tablet rgnt non-auto w/o micrscpCorey Sherwin DO Work Phone: Start: 43-76-1945DOY CBC WITH AUTO DIFFCorey Sherwin DO Work Phone: Start: 10-12-4842Pltzu dip stick/tablet rgnt non-auto w/o micrscpCorey Sherwin DO Work Phone: Start: 92-21-8412Lkqrn dip stick/tablet rgnt non-auto w/o micrscpCorey Sherwin DO Work Phone: Start: 23-06-6653AVB CBC WITH AUTO DIFFCorey Sherwin DO Work Phone: Start: 34-86-2182Wf preg uterus w/detail kehinde 1st gestationCorey Vinh Sherwin DO Work Phone: Start: 11-78-1690Kr preg uterus w/detail kehinde 1st gestationCorey Sherwin DO Work Phone: Start: 69-32-4340ZVVOWSCYG VAGINITIS (HTRX)Brandy SEARS Work Phone: Start: 66-34-0745Sjwlm dip stick/tablet rgnt non-auto w/o micrscpAmy Sissy SEARS Work Phone: Start: 38-35-3600WJN CBC WITH AUTO DIFFCorey Sherwin DO Work Phone: Start: 95-53-7795Gsuay dip stick/tablet rgnt non-auto w/o micrscpCorey Sherwin DO Work Phone: Start: 07-29-2024 End: 42-89-7033Jvcth dip stick/tablet rgnt non-auto w/o micrscpCorey Sherwin DO Work Phone: Start: 90-78-6113Aucamf transfer intrauterineBeti Warren MD Work Phone: Start: 86-67-5488Pycckuznpq guidance intraoperative Beti Warren MD Work Phone: Start: 23-42-5198Ef pelvic nonobstetric image dcmtn limited/f/uMary L Josemanuel WAREHOUSE SPECIALIST-APPLICATIONS ENGINEERING MANAGER Work Phone: [phone]: 71-03-8893Bqxfvvki puncture oocyte retrieval any methodDonya Pickard Josemanuel WAREHOUSE SPECIALIST-APPLICATIONS ENGINEERING MANAGER Work Phone: [phone]: 20-93-6531Im pelvic nonobstetric image dcmtn limited/f/uMary L Josemanuel WAREHOUSE SPECIALIST-APPLICATIONS ENGINEERING MANAGER Work Phone: [phone]: 16-79-6921Ubcut of estradiolDawn R Dwight WAREHOUSE SPECIALIST-APPLICATIONS ENGINEERING MANAGER Work Phone: [phone]: 62-89-4939Ul pelvic nonobstetric image dcmtn limited/f/uMary L Josemanuel WAREHOUSE SPECIALIST-APPLICATIONS ENGINEERING MANAGER Work Phone: [phone]: 61-33-5543Tu pelvic nonobstetric image dcmtn limited/f/uMary L Josemanuel WAREHOUSE SPECIALIST-APPLICATIONS ENGINEERING MANAGER Work Phone: [phone]: 84-49-5942Ghqhe of estradiolMary L Josemanuel WAREHOUSE SPECIALIST-APPLICATIONS ENGINEERING MANAGER Work Phone: [phone]: 30-05-1013Ou pelvic nonobstetric image dcmtn limited/f/uMary L Josemanuel WAREHOUSE SPECIALIST-APPLICATIONS ENGINEERING MANAGER Work Phone: [phone]: 25-23-7138Ikfgr of estradiolMary L Josemanuel WAREHOUSE SPECIALIST-APPLICATIONS ENGINEERING MANAGER Work Phone: [phone]: 89-44-4067Xh pelvic nonobstetric image dcmtn limited/f/uDawn R Dwight WAREHOUSE SPECIALIST-APPLICATIONS ENGINEERING MANAGER Work Phone: [phone]: 17-65-0357Jireg count hematocritMary L Josemanuel WAREHOUSE SPECIALIST-APPLICATIONS ENGINEERING MANAGER Work Phone: [phone]: 69-37-3492Rbybwwup puncture oocyte retrieval any Sherice Warren MD Work Phone: Start: 97-50-7019Cs pelvic nonobstetric image dcmtn limited/f/uDawn R Dwight WAREHOUSE SPECIALIST-APPLICATIONS ENGINEERING MANAGER Work Phone: Start: 74-70-6320Onutivkwuseo luteinizing hormone Beti Warren MD Work Phone: [phone]: 81-60-7069Xd pelvic nonobstetric image dcmtn limited/f/uDawn R Dwight WAREHOUSE SPECIALIST-APPLICATIONS ENGINEERING MANAGER Work Phone: [phone]: 81-43-7077Bdqtx of estradiolDawn R Dwight WAREHOUSE SPECIALIST-APPLICATIONS ENGINEERING MANAGER Work Phone: Start: 49-66-7245Zwamd of estradiolDawn R Dwight WAREHOUSE SPECIALIST-APPLICATIONS ENGINEERING MANAGER Work Phone: Start: 91-99-8166Gdmhi count hematocritDawn R Dwight WAREHOUSE SPECIALIST-APPLICATIONS ENGINEERING MANAGER Work Phone: Start: 89-98-6297Kl pelvic nonobstetric image dcmtn limited/f/uDawn R Dwight WAREHOUSE SPECIALIST-APPLICATIONS ENGINEERING MANAGER Work Phone: Start: 97-61-6500Uzoacrqzzpuk bx endometrium&/polypc w/wo d&cJoseph Sera Chavarria MD Work Phone: Start: 81-34-7818Ncnxu test visual color cmprsn Celina Tuttle MD Work Phone: Start: 60-81-0504CGL,APTIMA HPV,AGE GDLNAmy Sissy ORION Work Phone: Start: 13-59-6229Gunvlhxamvy observation [Identifier] in Cervix by Cyto stainLeigh Ann Tuttle MD Work Phone: Start: 39-55-6385Ckpky Knee Arthroscopy with Medial Meniscal RepairLeigh Ann Covington Start: 01-28-4915snmco knee anterior cruciate ligament allograft reconstruction with cjym-pzrtcm-nbqn, debridment medial meniscus tear, patellofemoral chondroplasty-Grade I-IILeigh Ann Covington TonsillectomyLeigh Ann Covington tubes in the earsLeigh Ann Covington Plan of Treatment DateCare ActivityDetailAuthorStart: 26-07-2600IQJ High Risk: (Elderly (60+) or Population) (1 - 1-dose 75+ series)RSV High Risk: (Elderly (60+) or Population) (1 - 1-dose 75+ series)[facility] Start: 54-20-2615Eqjfvu Vaccines (1 of 2)Zoster Vaccines (1 of 2)[facility]Start: 53-68-4710Omjchxorx for malignant neoplasm of cervixUnSamaritan Hospital: 02-14-2025 End: 99-27-8501Updxhfb encounter evtrwplky01/14/2025 2:30 PM EDT Routine [facility] [address] [place], [id number] Layo Courtney DO [address] [place] [address] NOMS David OBGYNStart: 02-07-2025 End: 76-97-0791Crzrkhy encounter procedureNOMS David OBGYNComment on above: ArrivedStart: 01-31-2025 End: 65-56-0338PWONRSZ, GROUP B STREP WITH SUSCEPTIBLITYCULTURE, GROUP B STREP WITH SUSCEPTIBLITY Lab Routine Third trimester ([facility]) Expected: 01/31/2025, Expires: 01/31/2026[facility] Work Phone: comment on above:Expected: 01/31/2025, Expires: 01/31/2026Start: 01-31-2025 End: 29-76-7214CR for pregnancyUS OB follow up transabdominal approach Imaging Routine Encounter for in vitro fertilization Expected: 01/31/2025, Expires: 06/02/2025NOMS HealthcareComment on above:Expected: 01/31/2025, Expires: 06/02/2025Start: 01-31-2025 End: 54-12-1984Dvqwzhy encounter fkhuuniqb42/30/2025 1:50 PM EDT Routine [facility] David TIPTONGYRoxy [address] [place], [id number] Yomaira Guerrero, MENTAL HEALTH AIDE [address] [place] [address] NOMS David OBGYNStart: 01-30-2025 End: 28-83-1790Twfhigv encounter wtdkpuazl14/29/2025 3:50 PM EDT Routine [facility] David ZACARIAS [address] [place], [id number] Yomaira Guerrero, MENTAL HEALTH AIDE [address] [place] [address] NOMS David OBGYNStart: 01-16-2025 End: 00-37-2282Iefgvbn encounter procedureNOMS David OBGYNComment on above: ArrivedStart: 01-03-2025 End: 15-80-4449DX biophysical profile w non stress testUS biophysical profile w non stress test Imaging Routine resulting from in vitro fertilization in third trimester [facility] Expected: 01/03/2025 (Approximate), Expires: 07/03/2025[facility] Work Phone: comment on above:Expected: 01/03/2025 (Approximate), Expires: 07/03/2025Start: 01-03-2025 End: 98-52-0792Xhfppny encounter procedureNOMS David OBGYNComment on above: ArrivedStart: 40-11-1584Gwzqzdjwp vaccinationInfluenza Vaccine (Season Ended) [facility] HealthcareStart: 12-19-2024 End: 79-80-3048Hxqrhajjuahh / ancillary services qdsyiinfmc10/18/2025 9:30 AM EDT Ancillary Procedure [facility] [address] [place] [address] [facility]S [place] OBGYNStart: 12-19-2024 End: 40-00-9607Xsrjnhg encounter procedureNOMS David OBGYNStart: 12-06-2024 End: 86-83-3868Snwcvvj encounter procedureNOMS BCP OBComment on above:Arrived Start: 11-08-2024 End: 87-06-4342Igbmfgq encounter xcpiwdeaf67/08/2025 2:40 PM EDT Routine [facility] OB [address] [place] [address] Layo Courtney, DO [address] [place], [place] [id number] NOMS BCP OBStart: 11-08-2024 End: 39-96-6610TKS panel - Blood by Automated countCBC Lab Routine Diabetes mellitus screening Expected: 11/08/2024 (Approximate), Expires: 11/08/2025[facility] Work Phone: comment on above:Expected: 11/08/2024 (Approximate), Expires: 11/08/2025Start: 11-08-2024 End: 82-91-2525Hsrbnwimhqs of glucose 1 hour after glucose challenge for glucose tolerance testGlucose tolerance, 1 hour Lab Routine Diabetes mellitus screening Expected: 11/08/2024 (Approximate), Expires: 11/08/2025[facility] HealthcareComment on above:Expected: 11/08/2024 (Approximate), Expires: 11/08/2025Start: 10-17-2024 End: 37-80-1272Bfiuthb encounter iokpongvl23/16/2025 1:00 PM EDT Routine [facility] OB [address] [place] [address] Layo Courtney, DO [address] [place], [place] [id number] ArrivedCOMMUNITY HOS[facility] OBComment on above: ArrivedStart: 10-11-2024 End: 60-32-2362Ttnkrbj encounter procedureNOSETON MEDICAL CENTER OBComment on above:Arrived Start: 10-11-2024 End: 34-51-5842Zprf acids, totalBile acids, total Lab Routine Pruritus Expected: 10/11/2024 (Approximate), Expires: 10/11/2025[facility] HealthcareComment on above: Expected: 10/11/2024 (Approximate), Expires: 10/11/2025Start: 10-11-2024 End: 08-32-4381EQB W Auto Differential panel - BloodCBC and differential Lab Routine Pruritus Expected: 10/11/2024 (Approximate), Expires: 10/11/2025[facility] HealthcareComment on above:Expected: 10/11/2024 (Approximate), Expires: 10/11/2025Start: 10-11-2024 End: 89-50-4800Bohduty function 2000 panel - Serum or PlasmaHepatic function panel Lab Routine Pruritus Expected: 10/11/2024 (Approximate), Expires: 10/11/2025[facility] HealthcareComment on above:Expected: 10/11/2024 (Approximate), Expires: 10/11/2025Start: 10-11-2024 End: 25-77-5845Hpoleazvs C virus Ab [Presence] in Serum or Plasma by Immunoassay Hepatitis C antibody Lab Routine Pruritus Expected: 10/11/2024 (Approximate), Expires: 10/11/2025[facility] Work Phone: comment on above:Expected: 10/11/2024 (Approximate), Expires: 10/11/2025Start: 10-11-2024 End: 16-14-2150Hmiuvxellgv [Units/volume] in Serum or PlasmaTSH Lab Routine Pruritus Expected: 10/11/2024 (Approximate), Expires: 10/11/2025[facility] Comment on above:Expected: 10/11/2024 (Approximate), Expires: 10/11/2025Start: 09-06-2024 End: 39-32-2900Qctygia encounter procedureNOMS BCP OBComment on above:Arrived Start: 09-06-2024 End: 17-68-3958Zosue fetoprotein, maternalAlpha fetoprotein, maternal Lab Routine Second trimester Expected: 09/06/2024 (Approximate), Expires: 11/06/2024[facility] HealthcareComment on above:Expected: 09/06/2024 (Approximate), Expires: 11/06/2024Start: 09-06-2024 End: 49-89-8646SF for pregnancyUS OB 14+ weeks anatomy scan Imaging Routine Screening, , for anatomic survey Expected: 09/06/2024, Expires: 12/07/2024[facility] HealthcareComment on above:Expected: 09/06/2024, Expires: 12/07/2024Start: 08-08-2024 End: 11-34-3243Okharqn encounter procedureNOMS BCP OBComment on above:Arrived Start: 07-29-2024 End: 84-89-2210TTW/RhABO/Rh Lab Routine Missed menses , unspecified gestational age Expected: 07/29/2024 (Approximate), Expires: 07/29/2025[facility] HealthcareComment on above:Expected: 07/29/2024 (Approximate), Expires: 07/29/2025Start: 07-29-2024 End: 09-41-1794Tekgk type and Indirect antibody screen panel - BloodType and screen Lab Routine Missed menses , unspecified gestational age Expected: 07/29/2024 (Approximate), Expires: 07/29/2025[facility] Work Phone: comment on above:Expected: 07/29/2024 (Approximate), Expires: 07/29/2025Start: 07-29-2024 End: 28-17-8866Yjyri of abuse panel - Urine by Screen methodRapid drug screen, urine Lab Routine , unspecified gestational age Encounter for supervision of normal first in first trimester Expected: 07/29/2024 (Approximate), Expires: 07/29/2025[facility] HealthcareComment on above:Expected: 07/29/2024 (Approximate), Expires: 07/29/2025Start: 07-11-2024 End: 46-91-0239Tiqbljkutmbl [Mass/volume] in Serum or PlasmaProgesterone Lab Routine Fertility testing Expected: 07/11/2024 (Approximate), Expires: 07/11/2025[facility] Service Area Work Phone: Comment on above:Expected: 07/11/2024 (Approximate), Expires: 07/11/2025Start: 15-30-3903Bzcfpz Only06/23/2024 Orders Only Valeria Hay [address] [place] [phone] Ira Lopez RN Encounter for test, result unknown Valeria HayComment on above:Encounter for test, result unknownStart: 03-20-2024 End: 57-65-0998Fwshrybj [Units/volume] in Serum or PlasmaLuteinizing Hormone Lab STAT Female infertility Expected: 03/20/2024 (Approximate), Expires: 03/20/2025 [facility] Work Phone: Comment on above:Expected: 03/20/2024 (Approximate), Expires: 03/20/2025Start: 03-20-2024 End: 38-73-6633Jacfxuxszsky [Mass/volume] in Serum or PlasmaProgesterone Lab STAT Female infertility Expected: 03/20/2024 (Approximate), Expires: 03/20/2025 [facility] Service Area Work Phone: Comment on above:Expected: 03/20/2024 (Approximate), Expires: 03/20/2025Start: 03-20-2024 End: 97-24-1390Ghzpmbeitlnk / ancillary services jvpawvijju55/17/2024 8:00 AM EST Ancillary Procedure Valeria Hay [address] [address]BS Valeria SimmonsonStart: 03-19-2024 End: 45-52-5495Odzxjfuiitpg / ancillary services gmrcspkxuf92/16/2024 8:30 AM EST Ancillary Procedure Valeria Hay [address] [place], [place] [address]UH [facility] PavilionStart: 03-17-2024 End: 76-62-0687Vffjycnsf (E2) [Mass/volume] in Serum or PlasmaEstradiol Lab STAT Female infertility Expected: 03/17/2024 (Approximate), Expires: 03/17/2025[facility] Service Area Work Phone: Comment on above:Expected: 03/17/2024 (Approximate), Expires: 03/17/2025Start: 03-17-2024 End: 64-44-6635Kpibapvxjhax [Mass/volume] in Serum or PlasmaSt. Charles Hospital Work Phone: Comment on above:Expected: 03/17/2024 (Approximate), Expires: 03/17/2025Start: 03-17-2024 End: 93-86-1310Wndltkwelisa / ancillary services xnsttzxjci41/14/2024 6:45 AM EST Ancillary Procedure TERRY Hay [address] [place] [address] Valeria SimmonsonStart: 03-15-2024 End: 64-71-9639Suuvtplblriw / ancillary services ngvsaoqdcp21/12/2024 6:45 AM EST Ancillary Procedure TERRY Hay [address] [place], [place] [id number] Valeria [facility]ilionStart: 03-09-2024 End: 43-06-2562Bamfdwpsiiai / ancillary services bwzaaiucbn42/06/2024 7:15 AM EST Ancillary Procedure TERRY Hay [address] [place], [place] [id number] Valeria [facility]ilionStart: 02-23-2024 End: 07-01-7428Xozvmcy encounter cjjdnooys50/22/2024 8:30 AM EDT Appointment TERRY Hay [address] [place] [id number] Juan Chavarria MD [address] [place] [address] [place] [address] Manuela Schrader Department of Anesthesiology [place] [address] [facility]ío PavilionStart: 02-21-2024 End: 60-09-6987Jtgsceaddlhn / ancillary services jcqpguired28/20/2024 8:30 AM EDT Ancillary Procedure Valeria Simmonson [address] [place], [place] [address]UH Valeria [facility]el PavilionStart: 02-20-2024 End: 92-89-0231Tnkxojqst (E2) [Mass/volume] in Serum or PlasmaEstradiol Lab STAT Female infertility Expected: 02/20/2024 (Approximate), Expires: 02/17/2025[facility] Service Area Work Phone: Comment on above:Expected: 02/20/2024 (Approximate), Expires: 02/17/2025Start: 02-20-2024 End: 42-21-5993Flaswywxwwki [Mass/volume] in Serum or PlasmaProgesterone Lab STAT Female infertility Expected: 02/20/2024 (Approximate), Expires: 02/17/2025 [facility] Work Phone: Comment on above:Expected: 02/20/2024 (Approximate), Expires: 02/17/2025Start: 02-20-2024 End: 60-38-8460Lrnzhclogtkq / ancillary services /19/2024 8:30 AM EDT Ancillary Procedure Valeria Simmonson [address] [place] [id number] Valeria [facility] PavilionStart: 02-18-2024 End: 48-29-5942Rcntdhlzpiql / ancillary services lmmdjiqbdh61/17/2024 7:45 AM EDT Ancillary Procedure Valeria Simmonson [address] [place] [id number] Valeria Chanel PavilionStart: 02-16-2024 End: 86-71-4581Uvoqmqfvwpjr / ancillary services dhjzsozsiw97/15/2024 7:15 AM EDT Ancillary Procedure [facility] [address] [place] [address] 02-09-2024 End: 37-67-9352Ylhnwzofzeta / ancillary services opqcgqggsg53/08/2024 7:15 AM EDT Ancillary Procedure [facility] [address] [place] [address]: 01-14-2024 End: 84-03-7455Zlexcux encounter aakfxnjit97/12/2024 11:00 AM EDT Office Visit [facility] [address] [place] [phone] Brandy Sheehan PA [address] [place] [address] ArrivedNOMS BCP OBComment on above:ArrivedStart: 01-03-2024 COVID-19 Vaccine ( season)COVID-19 Vaccine ( season) [facility] 36-22-0426CPGSP-19 Vaccine ( season)COVID-19 Vaccine ( season)[facility] Start: 72-52-8352Ukqhpojre vaccinationInfluenza Vaccine (#1)[facility] 12-25-2023 End: 48-74-5565Lixjriwnkvcg consultation with gqmwwhw3812/25/2023 9:00 AM EDT Telemedicine Clinical Support [facility] [address] [place] [address] Afua Julian I, LGC [address] [facility] [place] [address] [facility]: 2023 End: 80-30-1331Yxcnxroln trachomatis and Neisseria gonorrhoeae DNA [Identifier] in Unspecified specimen by EDELMIRA with probe detectionUnMercy Health St. [facility]'s [facility] Work Phone: Comment on above:Expected: 2023 (Approximate), Expires: 12/10/2024Start: 2023 End: 61-01-9674Zuabsudfh B virus surface Ag [Presence] in Serum or Plasma by ImmunoassaySt. Charles Hospital Work Phone: Comment on above:Expected: 2023 (Approximate), Expires: 12/10/2024Start: 2023 End: 41-25-7395Jfilaejbf C virus Ab [Presence] in SerumSt. Charles Hospital Work Phone: Compvjt on above:Expected: 2023 (Approximate), Expires: 12/10/2024Start: 2023 End: 79-91-1233PFO 1+2 Ab+HIV1 p24 Ag [Presence] in Serum or Plasma by ImmunoassaySt. Charles Hospital Work Phone: Comment on above:Expected: 2023 (Approximate), Expires: 12/10/2024Start: 2023 End: 13-39-5986Edjyrmt virus IgG Ab [Units/volume] in SerumM[facility] Service [facility] Work Phone: Comment on above:Expected: 2023 (Approximate), Expires: 12/10/2024Start: 2023 End: 47-92-4551Wxacgfwnd pallidum IgG+IgM Ab [Presence] in Serum by Immunoassay [facility] Work Phone: Comuidh on above:Expected: 2023 (Approximate), Expires: 12/10/2024Start: 2023 End: 52-67-8187Trvrgjtcr zoster virus IgG Ab [Presence] in Serum by Immunoassay [facility] Work Phone: Comvkuj on above:Expected: 2023 (Approximate), Expires: 12/10/2024[place]: 20-89-8345XKCCE-19 Vaccine ( season)COVID- 19 Vaccine ( season)[facility]: 95-97-8598PVuH/Tdap/Td Vaccines (2 - Td or Tdap)DTaP/Tdap/Td Vaccines (2 - Td or Tdap)[facility]: 37-84-6603Ogykunrjp for malignant neoplasm of cervixUnSamaritan Hospital: 65-07-0349Zkjuubsua B Vaccines (1 of 3 - 19+ 3-dose series)Hepatitis B Vaccines (1 of 3 - 19+ 3-dose series)[facility]: 68-95-8798Ktycmmroe C screening Hepatitis C ScreeningAshtabula County Medical Center: 28-11-2623JQX Vaccines (1 - 3-dose series)HPV Vaccines (1 - 3-dose series)[facility]: 37-62-7323Ltxdcqwzc vaccinationVaricella Vaccines (2 of 2 - 2-dose childhood series)[facility]: 93-45-8649YQP Vaccines (1 of 1 - Standard series)MMR Vaccines (1 of 1 - Standard series) [facility]: 81-27-3677ZYX screeningHIV Screening [facility]: 09-23-1041Hlzrg panelLipid Panel [facility]: 43-43-4323Oitury Adult PhysicalYearly Adult PhysicalUnMercy Health St. Rita's Medical CenterBacteria identified in Urine by CultureUrine culture Microbiology Routine Missed menses Ordered: 07/29/2024[facility] HealthcareComment on above:Ordered: 07/29/2024acteria identified in Urine by CultureUrine culture Microbiology Routine Leukocytes in urine Other microscopic hematuria Ordered: 12/19/2024[facility] Healthcare Work Phone: comment on above:Ordered: 12/19/2024BC W Auto Differential panel - BloodCBC and differential Lab Routine Missed menses , unspecified gestational age Ordered: 07/29/2024[facility] HealthcareComment on above:Ordered: 07/29/2024HLAMYDIA TRACHOMATIS (GENITO/STI)CHLAMYDIA TRACHOMATIS (GENITO/STI) Lab Routine STD exposure Ordered: 09/06/2024[facility] HealthcareComment on above:Ordered: 09/06/2024 End: 84-82-3845Iwukksyqmyyotfalom ( test) [Presence] in UrinePOCT , urine manually resulted Point of Care Testing Routine Once (Lab) for 1 Occurrences starting 02/23/2024 until 02/23/2024[facility] Service Area Work Phone: Comment on above:Once (Lab) for 1 Occurrences starting 02/23/2024 until 02/23/2024 End: 81-73-5835Wbwxczqgclzgaaltee ( test) [Presence] in UrinePOCT , urine manually resulted Point of Care Testing Routine Once (Lab) for 1 Occurrences starting 03/22/2024 until 03/22/2024[facility] Service Area Work Phone: Comment on above:Once (Lab) for 1 Occurrences starting 03/22/2024 until 03/22/2024 End: 91-30-0263Whuevmsrgofuxyobzq ( test) [Presence] in UrinePOCT , urine manually resulted Point of Care Testing Routine Once (Lab) for 1 Occurrences starting 06/13/2024 until 06/13/2024[facility] Service Area Work Phone: Comvdve on above:Once (Lab) for 1 Occurrences starting 06/13/2024 until 06/13/2024ytology Cervical or vaginal smear or scraping study Pap Smear Pathology and Cytology Routine Well woman exam with routine gynecological exam Ordered: 01/14/2024[facility] Work Phone: comment on above:Ordered: 01/14/2024Hemoglobin A1c/Hemoglobin.total in BloodHemoglobin A1c Lab Routine Missed menses , unspecified gestational age Ordered: 07/29/2024[facility] HealthcareComment on above: Ordered: 07/29/2024Hepatitis B virus surface Ag [Presence] in Serum or Plasma by ImmunoassayHepatitis B surface antigen Lab Routine Missed menses , unspecified gestational age Ordered: 07/29/2024[facility] HealthcareComment on above: Ordered: 07/29/2024Hepatitis C virus Ab [Presence] in Serum or Plasma by ImmunoassayHepatitis C antibody Lab Routine Missed menses , unspecified gestational age Ordered: 07/29/2024[facility] HealthcareComment on above:Ordered: 07/29/2024HIV-1/HIV-2 antigen/antibody combination immunoassayHIV-1 and HIV-2 antibodies Lab Routine Missed menses , unspecified gestational age Ordered: 07/29/2024[facility] HealthcareComment on above:Ordered: 07/29/2024Neisseria gonorrhoeae DNA [Presence] in Unspecified specimen by EDELMIRA with probe detection Neisseria gonorrhea DNA probe, direct Lab Routine STD exposure Ordered: 09/06/2024[facility] HealthcareComment on above:Ordered: 09/06/2024Reagin Ab [Presence] in Serum by RPRRPR Lab Routine Missed menses , unspecified gestational age Ordered: 07/29/2024[facility] HealthcareComment on above:Ordered: 07/29/2024REI US Pelvis Limited Follicles - Follicle Studies PerformedREI US Pelvis Limited Follicles - Follicle Studies Performed Imaging Routine Female infertility 02/16/2024 7:17 AM [facility] Area Work Phone: REI US Pelvis Limited Follicles - Follicle Studies PerformedREI US Pelvis Limited Follicles - Follicle Studies Performed Imaging Routine Female infertility 02/20/2024 9:06 AM [facility] Area Work Phone: Rubella antibody, IgGRubella antibody, IgG Lab Routine Missed menses , unspecified gestational age Ordered: 07/29/2024[facility] HealthcareComment on above:Ordered: 07/29/2024SURESWAB(R) ADVANCED VAGINITIS PLUS, TMASURESWAB(R) ADVANCED VAGINITIS PLUS, TMA Pathology and Cytology Routine STD exposure Ordered: 09/06/2024[facility] Healthcare Work Phone: comment on above:Ordered: 09/06/2024 End: 85-02-1819Iqpamilq pathology [facility] Area Work Phone: Comment on above:Once (Lab) for 1 Occurrences starting 01/28/2024 until 01/28/2024, 1 completedOnce (Lab) for 1 Occurrences starting 01/28/2024 until 01/28/2024 Immunizations Immunization DateImmunizationNotesCare NbmtuxfjEjxcevww87-78-3602xtpmhnieyaafv ACWY vaccine, unspecified formulationPrincess Rapp [phone]-HnewfUniversity Hospitals Tripoint [facility]08-19-2010 tetanus toxoid, reduced diphtheria toxoid, and acellular pertussis vaccine, adsorbedElisourav Rapp [phone]-KyuuyUniversity Hospitals Tripoint Medical Center08-19-2010 varicella virus vaccineElisourav Rapp [phone]-KhdouMercy [facility] Primary CareNEGATED: Highlighted row has not occurred!28-18-4074ondgmnipp virus vaccine, unspecified formulationConnerly Juventino [phone]-LnpepMercy Health – The Jewish Hospital Primary CareNEGATED: Highlighted row has not occurred!81-32-4544suasmbkrp virus vaccine, unspecified formulationRadhajuan Feed.fm [phone]-NfagaMercy Health – The Jewish Hospital [facility] Care NEGATED: Highlighted row has not occurred!06-26-2021 SARS-CoV-2 (COVID-19) Ad26 vaccine, recombinantKatTrusper [phone]-BjrelMercy Health – [facility] Jewish [facility] Care NEGATED: Highlighted row has not occurred!01-29-2021 influenza virus vaccine, unspecified formulationRadhajaeyosmehdi Feed.fm [phone]-WzsssMercy Health – [facility] NEGATED: Highlighted row has not occurred!01-29-2021 SARS-CoV-2 (COVID-19) Ad26 vaccine, recombinantDecisyon 060-4530Nkgezp-TqudhMercy Health – [facility] Care NEGATED: Highlighted row has not occurred!05-03-2019 influenza virus vaccine, live, attenuated, for intranasal useRadhajaeyosmehdi Feed.fm [phone]-TpngxMercy Health – [facility] NEGATED: Highlighted row has not occurred!09-30-2018 influenza virus vaccine, unspecified formulationLeigh Ann Covington [phone]-DpsfxMercy Health – [facility] Payers DatePayer CategoryPayerPolicy [id number] Care (Private) [id number] Health InsuranceMEDICAL MUTUAL Member Subscriber Plan / Payer (Effective 2022- Present) Name: Peter Romeroroxy Del Real Relation to Subscriber: Self Name: JoseRadhaSydney R Payer ID: Not on file Type: Not on file Address: [address] [id number] [id number] [id number] 2..1.887265.3.57[id number] 2.1.016822.3.579.2.99575-43-5972Yrbdssl07506521 2..1.069953.3.57[id number] 2..1.860070.3.579.2.56697-40-1126Myqoqlj37673199 2.0.1.584557.3.579.2.67247-60-1889Dlelabm40405238 20.1.103902.3.579.2.20786-05-4895Leglxcv18640445 2.16840.1.429296.3.579.2.310677-08-6030Ptrrxsj38767187 2.16.840.1.368802.3.579.2.529816-71-2511Ribvons97196795 2.16840.1.973701.3.579.2.058972-65-1731Lusrxzp825396000 2.16840.1.803139.3.579.2.597229-27-6174Hlvqwuf060699190 2.840.1.843789.3.579.2.215494-66-7210Wmjldds870951250 2.840.1.752414.3.579.2.168693-24-6251Nwiesst020922777 2.840.1.735695.3.579.2.621212-43-3483Uqcyulc557995849 2.840.1.146861.3.579.2.133254-84-9346Gppplcw043365028 2.840.1.829201.3.579.2.131688-92-0595Qvkkncs991800548 2.840.1.437096.3.579.2.609402-14-7513Jmohren409763862 2.840.1.841971.3.579.2.882935-82-3108Wlzxypx105340566 2.840.1.693695.3.579.2.350852-15-9530Qgdzpkf09059793 2.16840.1.920895.3.579.2.283739-12-5119Kcakwhe61792396 2.16840.1.826541.3.579.2.970302-25-9512Ddytovu51666653 2.16840.1.504630.3.579.2.252775-95-9749Epqscnp86052378 2.16.840.1.576978.3.579.2.162891-47-8665Rhqyusy79145689 2.16.840.1.481564.3.579.2.388290-40-5329Hmvksyn49622158 2.16840.1.088424.3.579.2.444225-04-4286Xvizgpj51841104 2.16840.1.907689.3.579.2.412707-23-4975Osdbbvu39712462 2.16840.1.357083.3.579.2.098594-94-0343Ryseylk67684508 2.16840.1.698662.3.579.2.519652-93-3370Jgsjqrf69178259 2.840.1.365498.3.579.2.605666-30-5328Lturcer53564391 2.16840.1.598885.3.579.2.675786-49-2076Qnhnwfs77727207 2.840.1.667268.3.579.2.506042-54-7210Uhygblq35113013 2.16840.1.853543.3.579.2.345938-41-9749Tpvgrwt89888917 2.840.1.539028.3.579.2.288455-51-6898Yvbzedi47817036 2.16840.1.613664.3.579.2.734922-07-9858Ehmrkhl52243538 2.16840.1.815565.3.579.2.786629-52-5106Qyaevzm82131125 2.16.840.1.266617.3.579.2.838633-77-2978Gzlnbwt26827038 2.16840.1.050852.3.579.2.425575-75-3397Dmsxfhm07506610 2.840.1.174272.3.579.2.432785-72-5766Shdctpc78156156 2.16840.1.057571.3.579.2.392118-94-6119Txcqsze56303832 2.840.1.059565.3.579.2.892999-41-2358Phdhewd05208884 2.840.1.770437.3.579.2.584477-58-7619Ptwjsko07978038 2.0.1.315864.3.579.2.186598-56-6921Jkbynox02594629 2.840.1.761664.3.579.2.582465-50-1955Ytuozmz15184841 2.0.1.856937.3.579.2.749301-88-2760Vbaaety86990249 2.0.1.706829.3.579.2.812708-63-6248Eyxxmxj90655990 2.0.1.809889.3.579.2.627860-54-3783Ogyxbss69012626 2.0.1.330859.3.579.2.243703-13-7467Cyymlux50750386 2.840.1.269015.3.579.2.338360-29-8501Uopvlib09944969 2.840.1.047021.3.579.2.357385-04-4820Wzkyqdy53945477 2.840.1.642575.3.579.2.310973-55-5602Qmsatex74317356 2.840.1.891307.3.579.2.080345-63-7605Jxaauls02819655 2.16.840.1.620319.3.579.2.767350-20-4678Myjunvt95669612 2.16.840.1.101350.3.579.2.410652-77-2225Limzkcj60594766 2.16.840.1.039553.3.579.2.575104-96-0545Vispeoi95322469 2.16.840.1.444734.3.579.2.364825-70-9999Lbvzaux36396066 2.16.840.1.712351.3.579.2.592593-02-3135Hhoeoxo78573598 2.16.840.1.845455.3.579.2.319348-32-4886Szvgmcq23606014 2.16.840.1.300655.3.579.2.050104-27-5114Bdpzrms1687499 2.16.840.1.270506.3.579.2.533789-41-1120Qitzjjm2613015 2.16.840.1.979642.3.579.2.090471-71-5212Tmfdnjv4967015 2.16.840.1.700784.3.579.2.256768-26-7899Necwdke4749591 2.16.840.1.154584.3.579.2.000888-16-5322Zovejmp027437168811 Social History DateTypeDetailFacilityStart: 07-24-2021 End: 91-77-0334Zlanxqm smoking statusNever smoked tobacco (finding)[facility] Start: 87-93-6006Quwyiyv smoking statusNeverOhiohealth [facility] Start: 01-28-2024 End: 68-33-2036Rgv Assigned At BirthF[facility]alW[facility] Start: 62-14-5804Wheqjii use and exposureSmokeless tobacco non-userUnMercy Health St. [facility]'s [facility] Work Phone: Start: 01-28-2024 End: 85-57-3778Omuqphmfy beverage intakeEx-drinker (finding)[facility] Work Phone: Start: 01-28-2024 End: 28-95-2307Sfhazpj of Social functionUnMercy Health St. [facility]'s Medical Center Work Phone: Start: 33-95-0911Lcjllse CommentOccassionally [facility] Work Phone: Start: 88-94-0806Nwq assigned at birthNot on file [facility] Work Phone: Start: 12-01-2023 End: 51-55-4891Kvlfvzxu to SARS-CoV-2 (event)Not sureUnMercy Health St. Rita's Medical CenterStart: 02-23-2024 End: 22-64-4408Uxxyuqfvn beverage intakeCurrent drinker of alcohol (finding) [facility] Work Phone: Start: 87-76-9586Jbemvxw CommentBeer 1-2 times per monthFreeman Health SystemStart: 12-18-2023 End: 59-52-9488Nkgbernw to SARS-CoV-2 (event)Unable to assessSt. Charles HospitalStart: 47-31-6427AnnnhwowqIVEL Healthcare Medical Equipment Procedure CodeEquipment CodeEquipment Original TextEquipment IdentifierDates [id number]: 03-01-2024 End: 03-09-2024 Functional Status ZyjuKopjvfqfleJhxiefMwyrviif29-80-9869Jxxtglocwh StatusN/[facility] Zcjs43-90-6155Viajwzqnhd StatusN/[facility] Awgs60-55-6387Ocmnrorzzd StatusN/[facility] Lmjz16-96-8224Pzmawtwagc StatusN/[facility] Care Clinical Notes 07-24-2021 to 02-14-2025 Note Date & TrorGyhcMgrlmmny95-69-3584 History of Present illness Narrative* Mariela Greer, VARNISH INSPECTOR - 02/14/2025 2:30 PM EDT Reason for Appointment: Patient ID: Sydney Romero [...] nursing note reviewed. Exam conducted with a special procedure technologist present. Vitals: Estimated body mass index is 42.07 kg/m as calculated from the following: Height as of 09/17/22: 5' 3 . Weight as of this encounter: 237 lb 8 oz. BP: 110/82 No LMP recorded. Patient is . ASSESSMENT & PLAN ICD-10-CM 1. Third [facility] Z34.93 POCT urinalysis dipstick manually resulted 2. 37 weeks gestation of ([facility]) Z3A.37 Return OB: Patient presents today for [...] medial meniscus -SBS TONSILLECTOMY documented in this encounterFreeman Health SystemCbyxobwjot00-59-1211 History of Present illness Narrative* Yomaira Guerrero NP - 02/07/2025 1:40 PM EDT Reason for Appointment: Patient ID: Sydney Romero [...] nursing note reviewed. Exam conducted with a special procedure technologist present. Vitals: Estimated body mass index is 41.88 kg/m as calculated from the following: Height as of 09/17/22: 5' 3 . Weight as of this encounter: 236 lb 6.4 oz. BP: 128/82 No LMP recorded. Patient is . ASSESSMENT & PLAN ICD-10-CM 1. Third trimester ([facility] Z34.93 2. 36 weeks gestation of ([facility]) Z3A.36 POCT urinalysis dipstick manually resulted Return [...] of: Yomaira Guerrero NP documented in this encounterFreeman Health SystemQrmvvwsuzj04-58-8382 History of Present illness Narrative* Marilia Elder MA - 01/31/2025 1:50 PM EDT Reason for Appointment: Patient ID: Sydney Romero [...] nursing note reviewed. Exam conducted with a special procedure technologist present. Vitals: Estimated body mass index is 40.57 kg/m as calculated from the following: Height as of 09/17/22: 5' 3 . Weight as of this encounter: 229 lb. BP: 122/76 No LMP recorded. Patient is . ASSESSMENT & PLAN ICD-10-CM 1. Third trimester ([facility]) Z34.93 CULTURE, GROUP B STREP WITH SUSCEPTIBLITY CULTURE, GROUP B STREP WITH SUSCEPTIBLITY CANCELED: CULTURE, GROUP B STREP WITH SUSCEPTIBLITY 2. 35 weeks gestation of ([facility]) Z3A.35 POCT urinalysis dipstick manually resulted 3. [...] of: Yomaira Guerrero NP documented in this encounterFreeman Health [id number] History of Present illness Narrative* Yomaira Guerrero NP - 01/16/2025 2:50 PM EDT Reason for Appointment: Patient ID: Sydney Romero [...] PLAN ICD-10-CM 1. 33 weeks gestation of ([facility]) Z3A.33 POCT urinalysis dipstick manually resulted 2. Third trimester ([facility]) Z34.93 POCT urinalysis dipstick manually resulted 3. Group B streptococcal infection A49.1 4. resulting from in vitro fertilization in first trimester ([facility]) O09.811 Return OB: Patient presents today for [...] of: Layo Courtney DO documented in this encounterFreeman Health [id number] History of Present illness Narrative* Mariela Greer LPN - 01/03/2025 10:00 AM EDT Reason for Appointment: Patient ID: Sydney Romero [...] nursing note reviewed. Exam conducted with a special procedure technologist present. Vitals: Estimated body mass index is 39.47 kg/m as calculated from the following: Height as of 09/17/22: 5' 3 . Weight as of this encounter: 222 lb 12.8 oz. BP: 118/74 No LMP recorded. Patient is . ASSESSMENT & PLAN ICD-10-CM 1. Third trimester ([facility]) Z34.93 POCT urinalysis dipstick manually resulted 2. 31 weeks gestation of ([facility]) Z3A.31 POCT urinalysis dipstick manually resulted Return [...] of: Layo Courtney DO documented in this encounterFreeman Health [id number] History of Present illness Narrative* Niki Barbosa LPN - 12/19/2024 10:00 AM EDT Reason for Appointment: Patient ID: Sydney Romero [...] nursing note reviewed. Exam conducted with a special procedure technologist present. Vitals: Estimated body mass index is 38.76 kg/m as calculated from the following: Height as of 09/17/22: 5' 3 . Weight as of this encounter: 218 lb 12.8 oz. BP: 116/70 No LMP recorded. Patient is . ASSESSMENT & PLAN ICD-10-CM 1. 29 weeks gestation of ([facility]) Z3A.29 POCT urinalysis dipstick manually resulted 2. Third trimester ([facility]) Z34.93 POCT urinalysis dipstick manually resulted 3. [...] scan this morning. Patient to return to clinicin 2 weeks. Documented by Niki Barbosa LPN on behalf of: Layo Sherwin, DO documented in this encounterFreeman Health [id number] History of Present illness Narrative* ORION Spence - 12/06/2024 8:30 AM EDT Reason for Appointment: Patient ID: Sydney Romero [...] PLAN ICD-10-CM 1. 27 weeks gestation of ([facility]) Z3A.27 POCT urinalysis dipstick manually resulted 2. Second trimester ([facility]) Z34.92 POCT urinalysis dipstick manually resulted Return [...] of: Layo Courtney DO documented in this encounterFreeman Health [id number] History of Present illness Narrative* ORION Spence - 11/08/2024 2:40 PM EDT Reason for Appointment: Patient ID: Sydney Romero [...] ASSESSMENT & PLAN ICD-10-CM 1. Second trimester ([facility]) Z34.92 POCT urinalysis dipstick manually resulted 2. 26 weeks gestation of ([facility]) Z3A.26 POCT urinalysis dipstick manually resulted 3. [...] of: Layo Courtney DO documented in this encounterFreeman Health [id number] History of Present illness Narrative* Yomaira Guerrero NP - 10/17/2024 1:00 PM EDT Reason for Appointment: Patient ID: Sydney Romero [...] nursing note reviewed. Exam conducted with a special procedure technologist present. Vitals: Estimated body mass index is 35.52 kg/m as calculated from the following: Height as of 5/17/23: 5' 3 . Weight as of this encounter: 200 lb 8 oz. BP: 126/82 No LMP recorded. Patient is . ASSESSMENT & PLAN ICD-10-CM 1. Second trimester ([facility]) Z34.92 POCT urinalysis dipstick manually resulted 2. 20 weeks gestation of ([facility]) Z3A.20 Return OB: Patient presents today for [...] of: Layo Courtney DO documented in this encounterFreeman Health [id number] History of Present illness Narrative* ORION Spence - 10/11/2024 2:40 PM EDT Reason for Appointment: Patient ID: Sydney Romero [...] of: Layo Courtney DO documented in this encounterFreeman Health SystemUymnwmhxgq39-86-1004 History of Present illness Narrative* ORION Spence - 09/06/2024 2:50 PM EDT Reason for Appointment: Patient ID: Sydney Romero [...] behalf of: ORION Spence documented in this encounterFreeman Health [id number] History of Present illness Narrative* Yomaira Guerrero NP - 08/08/2024 1:00 PM EDT Reason for Appointment: Patient ID: Sydney Romero [...] nursing note reviewed. Exam conducted with a special procedure technologist present. Vitals: Estimated body mass index is [...] of: Layo Courtney DO documented in this encounterFreeman Health [id number] History of Present illness Narrative* Marilia Elder MA - 07/29/2024 9:30 AM EDT Reason for Appointment: Patient ID: Sydney Romero [...] screen, urine; Future Nurse Note: Patient declined [place] billion to one Pt is an IVF patient and currently on Progesterone injections and estrace medication daily. Pt willdiscuss w/Dr. Courtney when she may be able to stop both medications. OB Intake: Patient presents today for first OB visit. Patients history has been reviewed in great detail including any potential risks. Patient signed consent forms and patient desires testing in both trimesters. Patient currently has no complaints and has been advised to drink 6-8 glasses of water a day, eatno raw or undercooked meat, and stay away from [facility]. Patient has also been advised to not change litter boxes and eat 6 small meals a day. Patient has been consulted regarding the do's and don'ts ofpregnancy. Patient was given labs and all questions [...] by: Marilia Elder MA documented in this encounterFreeman Health [id number] History of Present illness Narrative* Donya Abernathy, CHRISTEN-APPLICATIONS ENGINEERING MANAGER - 07/11/2024 4:00 PM EDT Visit Type: In Person MD reviewed, Authorization [...] Abernathy 07/11/2024 3:54 PM documented in [facility] encounterSt[facility] Work Phone: 1(156) 399-837902-10-2025 History of Present illness Narrative* Juan Chavarria MD - 06/13/2024 11:00 AM ESTAssociated Order(s): Embryo Transfer Pre-Procedure Diagnose(s): Encounter for [...] Preop diagnosis: Infertility Post op diagnosis: Same Optic Fibre Drawer: none Depth: 7 cm Curve: anterior Distance [...] Chavarria 06/13/24 11:24 AM documented in this encounterSt. [facility] Hospital Work Phone: 1(866) 334-322002-10-2025 Hospital Discharge instructions* Discharge Instructions* Tisha Sparks RN - 06/13/2024 10:43 AM EST Images from the original note were not included. [facility] [address] [place] [address] Home Going Instructions after Embryo Transfer: After [...] in : Advil, Motrin, Ibuprofen, Aleve, Excedrin, [place], Sudafed, and Pepto-Bismol. Avoid aspirin unless you [...] transfer. It is healthy, normal, and recommended togo about routine physical activity. We advise against [...] Tisha Sparks 10:43 AM documented in this [facility] Work Phone: 1(640) 726-996402-03-2025 History of Present illness Narrative* Zoe Francis RN - 06/06/2024 6:45 AM EST CYCLING NOTE LMP: 05/23/24 Protocol: Programmed FET [...] driver to schedule at 8:45 slot at [facility] for US and labs. ZOE FRANCIS on 06/06/24 at 1:12 PM. documented in this [facility] Work Phone: 1(625) 748-668212-04-2024 Hospital Discharge instructions Patient Education 04/06/2024 15:00:07 [...] high risk for HIV. Your health care providermay recommend a prescription medicine to help prevent HIV infection. If you choose to take medicineto prevent HIV, you should first get tested [...] minerals and strength with aging. This can resultin bone fractures. If you are 65 years [...] you need help quitting, ask your health careprovider. Do not use street drugs. Do not [...] provider. Document Revised: 09/09/2021 Document Reviewed: 09/09/2021 [employer] Patient Education 2023 [employer]. Follow Up Care 03/25/2024 14:07:23 With:Mallory Judd Address: When:Within 6 Month(s) [facility] 11-19-2024 History of Present illness Narrative* Juan Chavarria MD - 03/22/2024 9:15 AM ESTAssociated Order(s): Egg Retrieval Pre-Procedure Diagnose(s): Encounter for [...] diagnosis: Female infertility Post op diagnosis: Same Optic Fibre Drawer: Dr. Warren IV Fluids: 600 cc EBL: 5 cc UOP: Not recorded Specimen: Oocytes Complications: None Number of Oocytes right ovary: 16 Ovarian access (right): Easy Number of Oocytes left ovary: 9 Ovarian access (left): Easy Endometrial thickness: n/a Needle type: Single Additional notes: documented in this encounterSt. [facility] Hospital Work Phone: 1(245) 609-619011-19-2024 Nurse Note* Gisell Michel RN - 03/22/2024 9:15 AM EST Patient discharged to home in stable condition via wheelchair to RIDE HOME: Partner's car. Accompanied by RN. ABREU at time of discharge. Discharge instructions given and concerns addressed. Gisell Michel RN 03/22/24 11:[address] [facility] Work Phone: 1([phone]) 619-312711-19-2024 Nurse Note* Gisell Michel RN - 03/22/2024 9:15 AM EST Patient discharged to home in stable condition via wheelchair to RIDE HOME: Partner's car. Accompanied by RN. ABREU at time of discharge. Discharge instructions given and concerns addressed. Gisell Michel RN 03/22/24 11:08 AM documented in this encounterSt. [facility] Hospital Work Phone: 1(496) 112-137011-19-2024 Hospital Discharge instructions* Discharge Instructions* Gisell Michel RN - 03/22/2024 8:45 AM EST Images from the original note were not included. [address] [place] [address] Home Going Instructions after Egg Retrieval: Activity: [...] your intake of food on the day ofyour procedure. Drinking fluids will keep your bowels [...] 2 weeks following your oocyte retrieval. Call [phone] to speak with a Physician or Nurse if you have any concerns. Gisell Michel 8:45 AM [facility] [address] [place], [place] IVF LAB EMBRYO UPDATE PROTOCOL The [...] your embryos have developed and how many havereached the blastocyst stage. Day 6/7: You will receive an email from the IVF Lab with your summary report indicating the number of embryos that were able to be frozen. If you are doing genetic testing on your embryos you will receive a phone call regarding the number of embryos biopsied and frozen. Gisell Michel 8:44 AM [facility] [address] [place] [address] Frozen Embryo Transfer Instructions After your egg retrieval, follow up with your IVF nurse within 3-4 days Thursday- Thursday regarding theplan for your frozen embryo transfer (FET) cycle. Your IVF nurse will order and review with you themedications you will be using for the cycle. You will be sent an email from [employer] to fill out your Frozen Embryo [...] Michel RN 8:44 AM documented in this encounterSt. [facility] Work Phone: 1(181) 644-919511-17-2024 History of Present illness Narrative* Krissy Yanes RN - 03/20/2024 8:00 AM EST CYCLING NOTE - IVF Cycle #: 2 [...] Arrive 60 minutes prior to procedure at [place] [address]. Patient verbalizes understanding of plan and location of procedure. Patient scheduled to go to [facility] tomorrow for post trigger labs Krissy Yanes 03/20/2024 11:01 AM documented in this encounterSt. Charles Hospital Work Phone: 1(591) 327-557511-16-2024 History of Present illness Narrative* Krissy Yanes RN - 03/19/2024 8:30 AM EST CYCLING NOTE - IVF Cycle #: 2 [...] to drop FSH to 100, continue Menopur tonightand Ganirelix in the am, and return for repeat scan and labs tomorrow morning. Krissy Yanes 03/19/24 11:02 AM documented in this encounterSt. [facility] Hospital Work Phone: 1(478) 864-882411-14-2024 History of Present illness Narrative* Krissy Yanes RN - 03/17/2024 6:45 AM EST CYCLING NOTE - IVF Cycle #: 2 [...] Yanes 03/17/24 1:04 PM documented in this encounterSt. [facility] Hospital Work Phone: 1(512) 695-723811-12-2024 History of Present illness Narrative* Allyssa Robles RN - 03/15/2024 6:45 AM EST IVF CYCLING NOTE IVF #2: 02/29/24 Reason [...] enough meds at this time; no further questions.Transferred to the front loader residential driver to schedule appt for 03/17. Allyssa Robles 03/15/24 1:27 PM documented in this [facility] Work Phone: 1(255) 305-666911-06-2024 History of Present illness Narrative* Allyssa Robles RN - 03/09/2024 7:15 AM EST HUDDLE NOTE - IVF STIM BASELINE Patient presents for baseline ultrasound and/or labs. IVF #2: 02/29/24 Antagonist protocol, FSH 225/HMG 75 Lead in: OCP Trigger: hcg vs Lupron Pre retreival meds: antibiotics per protocol Adjuncts: none Notes: (dropped initial fsh dose) Start date for lead in: 02/27/2024 Last estrace/OCP date: 03/08/2024 PGT-A/M? Yes; Req Sent: Yes; PGT-M Test Ready: No ; Company: [employer] PGT order scanned into [facility], confirmed by: LORI on Plan to freeze: [...] by delano On site at [facility] Additional details: Allyssa Robles 03/09/2024 7:50 AM TC to pt to confirm today's plan; LM; will send MC message. Allyssa Robles 03/09/24 2:02 PM Pt called back to confirm plan; Pt has all meds and all questions answered. She plans to purchase FET meds before the end of the year (they were ordered back in February) and will call [facility] [[email or web address]] to have them filled as she has met deductible and REECE needs a PA. Allyssa Robles 03/09/24 2:33 PM documented in this encounterSt. [facility] Work Phone: [phone]) 505-889710-22-2024 Nurse Note* Hannah Blackwood RN - 02/23/2024 10:39 AM EDT Patient discharged to home in stable condition via wheelchair accompanied by this RN to RIDE HOME: Partner's car. Discharge instructions given and concerns addressed. Patient verbalizes understandingof all information provided and is agreeable. [facility] Nurse Note* Hannah Blackwood RN - 02/23/2024 10:39 AM EDT Patient discharged to home in stable condition via wheelchair accompanied by this RN to RIDE HOME: Partner's car. Discharge instructions given and concerns addressed. Patient verbalizes understandingof all information provided and is agreeable. * Hannah Blackwood RN - 02/23/2024 10:00 AM EDT Patient up to bathroom independently, no complaints of pain or dizziness, able to void without issue, reports scant amount of bleeding. documented in this encounterSt. Charles Hospital Work Phone: 1(606) 995-472910-22-2024 Nurse Note* Hannah Blackwood RN - 02/23/2024 10:00 AM EDT Patient up to bathroom independently, no complaints of pain or dizziness, able to void without issue, reports scant amount of bleeding. [facility] Work Phone: 1(265) 153-548910-22-2024 History of Present illness Narrative* Juan Chavarria MD - 02/23/2024 8:30 AM EDTAssociated Order(s): Egg Retrieval Pre-Procedure Diagnose(s): Encounter for [...] diagnosis: Female infertility Post op diagnosis: Same Optic Fibre Drawer: none IV Fluids: 500 cc EBL: 5 cc UOP: Not recorded Specimen: Oocytes Complications: None Number of Oocytes right ovary: 17 Ovarian acc ss (right): Easy Number of Oocytes left ovary: 13 Ovarian access (left): Easy Endometrial thickness: n/a Needle type: Single Additional notes: documented in this [facility] Work Phone: 1(123) 632-202210-22-2024 Hospital Discharge instructions* Discharge Instructions* Donya Rosas RN - 02/23/2024 7:23 AM EDT Images from the original note were not included. [facility] [address] [place] [address] Home Going Instructions after Egg Retrieval: Activity: [...] your intake of food on the day ofyour procedure. Drinking fluids will keep your bowels [...] 2 weeks following your oocyte retrieval. Call [phone] to speak with a Physician or Nurse if you have any concerns. DONYA ROSAS 7:[address] [place], [place] IVF LAB EMBRYO UPDATE PROTOCOL The [...] your embryos have developed and how many havereached the blastocyst stage. Day 6/7: You will receive an email from the IVF Lab with your summary report indicating the number of embryos that were able to be frozen. If you are doing genetic testing on your embryos you will receive a phone call regarding the number of embryos biopsied and frozen. DONYA ROSAS 7:[address] [place], [place] IVF LAB EMBRYO UPDATE PROTOCOL The [...] your embryos have developed and how many havereached the blastocyst stage. Day 6/7: You will receive an email from the IVF Lab with your summary report indicating the number of embryos that were able to be frozen. If you are doing genetic testing on your embryos you will receive a phone call regarding the number of embryos biopsied and frozen. DONYA ROSAS 7:23 AM [facility] [address] [place] [address] Frozen Embryo Transfer Instructions After your egg retrieval, follow up with your IVF nurse within 3-4 days Thursday- Thursday regarding theplan for your frozen embryo transfer (FET) cycle. Your IVF nurse will order and review with you themedications you will be using for the cycle. You will be sent an email from [employer] to fill out your Frozen Embryo [...] ROSAS RN 7:32 AM documented in this encounterSt. [facility] Hospital Work Phone: 1([phone]) 136-858010-20-2024 History of Present illness Narrative* Beth Judge RN - 02/21/2024 8:30 AM EDT CYCLING NOTE Cycle #: 1 Reason For [...] Judge 02/21/2024 9:09 AM documented in this encounterSt. Charles Hospital Work Phone: [phone]) 961-792410-19-2024 History of Present illness Narrative* Beth Judge RN - 02/20/2024 8:30 AM EDT CYCLING NOTE- IVF Cycle #: 1 Reason [...] - Beth Judge RN documented in this encounterSt. Charles Hospital Work Phone: 1(397) 527-668910-17-2024 History of Present illness Narrative* Beth Judge RN - 02/18/2024 7:45 AM EDT CYCLING NOTE - IVF Cycle #: 1 [...] - Beth Judge RN documented in this encounterSt. Charles Hospital Work Phone: 1(668) 729-488510-15-2024 History of Present illness Narrative* Krissy Yanes RN - 02/16/2024 7:15 AM EDT CYCLING NOTE - IVF Cycle #: 1 [...] Will look into getting insulin syringes from [facility] [[email or web address] Team will contact patient later today with results and plan. Krissy Yanes 02/16/2024 7:27 AM LM with patient with plan to start Cetrotide today, drop FSH to 225 units and continue Menopur 75 units. Patient is already scheduled for 02/17 for repeat follicle scan and e2. Krissy Yanes 02/16/24 1:34 PM documented in this [facility] Work Phone: [phone] 905-865910-08-2024 History of Present illness Narrative* Allyssa Robles RN - 02/09/2024 7:15 AM EDT FELI NOTE - IVF STIM BASELINE Patient presents for baseline ultrasound and/or labs. 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 Yes; Req Sent: Yes; PGT-M Test Ready: No /A; Company: [employer] PGT order scanned into [facility], confirmed by: LORI on 02/09/2024 Plan to freeze: embryos [employer] forms/out waiver complete: Yes Does patient have medications onhand? Yes Pharmacy: [facility] Boarding pass signed off: Yes LORETTA on 02/05/2024 Date of Female STDs: 2023 Date of Male STDs: 2023 Medically complex on boarding pass: no If indicated, is PAT consult complete? N/A SPERM: partner Fresh with Frozen Backup Number of vials confirmed: 1 on 02/09/24 by OLRETTA Additional details: Allyssa Robles 02/09/2024 7:34 AM Beti Warren 02/09/24 12:44 PM TC to pt - Zane answered; confirmed plan for meds to start on 02/12 as per calendar and return on 02/15 as scheduled; no further questions. Allyssa Robles 02/09/24 1:16 PM documented in this [facility]Un[facility] Work Phone: 1(692) 195-440309-26-2024 Nurse Note* Ira Lopez RN - 01/28/2024 10:47 AM EDT Patient discharged to home in stable condition via wheelchair to RIDE HOME: Partner's car. Discharge instructions given and concerns addressed. [facility] Work Phone: 1(357) 340-124609-26-2024 Nurse Note* Ira Lopez RN - 01/28/2024 10:47 AM EDT Patient discharged to home in stable condition via wheelchair to RIDE HOME: Partner's car. Discharge instructions given and concerns addressed. documented in this encounterSt. Charles Hospital Work Phone: 1(504) 263-749509-26-2024 History of Present illness Narrative* Leigh Ann Tuttle MD - 01/28/2024 9:30 AM EDT IVF Procedure Area H&P Ms. Sydney Romero is a 28 y.o. F who presents for hysteroscopic polypectomy under anesthesia. Interval history reviewed and affirmed as up to date. MedHx: Past Medical History: Diagnosis Date Infertility, female SurgHx: Past Surgical History: Procedure Laterality Date KNEE SURGERY Right 2014 and 2017 TONSILLECTOMY 2008 Meds: Current Outpatient [...] for above procedure under anesthesia in the [facility] area. Okay to proceed with above stated procedure. Leigh Ann Tuttle * Leigh Ann Tuttle MD - 01/28/2024 9:30 AM EDTAssociated Order(s): Polypectomy Pre-Procedure Diagnose(s): Endometrial polyp Post-Procedure [...] speculum was placed into the patient's vagina andcervix was grasped anteriorly with a single-toothed tenaculum. [...] vault. Patient tolerated the procedure well and wastaken to the PACU in stable condition. Signature: Leigh Ann Tuttle MD Date: January 28, 2024 Time: 9:30 AM Post-procedure details: Procedure completion: Tolerated well, no immediate complications documented in this [facility] Work Phone: 1(393) 979-934209-26-2024 Hospital Discharge instructions* Discharge Instructions* Ira Lopez RN - 01/28/2024 8:20 AM EDT Images from the original note were not included. [facility] [address] [place] [id number] Home Going Instructions after Polypectomy: Activity: We [...] Ira Lopez 8:20 AM documented in this [facility] Work Phone: 1(657) 338-132609-12-2024 History of Present illness Narrative* ORION Spence - 01/14/2024 11:00 AM EDT Reason for Appointment: Patient ID: Sydney Romero [...] nursing note reviewed. Exam conducted with a special procedure technologist present. Vitals: Estimated body mass index is [...] behalf of: ORION Spence documented in this encounterFreeman Health SystemSqmqplkfai27-77-4947 History of Present illness Narrative* Juan Chavarria MD - 12/28/2023 10:00 AM EDT Visit Type: In Person IVF Note Sydney is a 28 y.o. 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 Burr) LMP: Patient's last menstrual period was 12/27/2023 (exact date). AMH: 2.01 Status of fallopian tubes: patent on outside HSG Saline Ultrasound: outside SIS suggests the presence of a polyp, otherwise normal cavity PRIOR EVALUATION / TREATMENT Saw KELSY physician in [facility] Dr. Vergara Was told needed IVF, oligospermia Hysterosalpingogram: 2023, bilateral tubal patency Saline Infused Sonography: 07/2023, normal uterine cavity small uterine polyp noted (not removed as of yet) KEYSMITH Pelvic Ultrasound: 07/2023 AMH 2.01 Relationship Status: x 2 years OB Hx G0 OB History 0 Para 0 Term 0 0 AB 0 Living 0 SAB 0 IAB 0 Ectopic 0 Multiple 0 Live Births 0 KEYSMITH HISTORY History of STD or PID: No [...] infertility x 2 years, and the following pertinentmedical issues: partner with oligospermia. Indication for IVF: Male infertility Partner SA: Oligospermia, following with Dr. Burr We reviewed IVF and discussed the following: [...] Update: PLAN PENDING follow up with Dr. Burr, ADPKD follow up testing, recommendations from genetics [...] for patient and partner (if applicable) to becompleted within the last year (z11.3) Genetic carrier [...] Chavarria 12/28/2023 10:39 AM documented in this encounterSt. Charles Hospital Work Phone: 1(881) 122-912508-09-2024 History of Present illness Narrative* Trish Thorpe, WAREHOUSE SPECIALIST-APPLICATIONS ENGINEERING MANAGER - 2023 8:45 AM EDT Visit Type: In Person NEW FERTILITY PATIENT VISIT Referred by: insurance referral Accompanied today by: spouse Sydney Romero is a 27 y.o. female who presents with Infertility TTC x 2 years PRIOR EVALUATION / TREATMENT Saw KELSY physician in [facility] Dr. Vergara Was told needed IVF, oligospermia Hysterosalpingogram: 2023, bilateral tubal patency Saline Infused Sonography: 07/2023, normal uterine cavity small uterine polyp noted (not removed as of yet) KEYSMITH Pelvic Ultrasound: 07/2023 AMH 2.01 Prior Labs Lab Results Date Done AMH: No results found for requested labs within last 1825 days. No results found for requested labswithin last 1825 days. TSH: No results found for requested labs within last 1825 days. No results found for requested labswithin last 1825 days. PRL: No results found for requested labs within last 1825 days. No results found for requested labswithin last 1825 days. Testosterone: No results found for requested labs within last 1825 days. No results found for requested labs within last 1825 days. DHEAS: No results found for requested labs within last 1825 days. No results found for requested labs within last 1825 days. FSH: No results found for requested labs within last 1825 days. No results found for requested labswithin last 1825 days. 17 OHP: No results [...] found for requested labs within last 1825 days.No results found for requested labs within last [...] last 1825 days. No results found for requestedlabs within last 1825 days. Rubella: No results [...] 1825 days.: No results found for requested labswithin last 1825 days. Relationship Status: x 2 years OB Hx G0 OB History 0 Para 0 Term 0 0 AB 0 Living 0 SAB 0 IAB 0 Ectopic 0 Multiple 0 Live Births 0 KEYSMITH HISTORY History of STD or PID: No [...] including hormonal, egg quality issues, structural problems suchas endometriosis, adhesions, or tubal problems, uterine factors such as polyps or fibroids, and sperm issues. Reviewed evaluation of such as well. We discussed various methods for achieving pregnancyin some detail including, ovulation induction, insemination, superovulation and IVF. Discussed treatment of male factor infertility, discussed evaluation/treatment with Dr. Anderson. Discussed IUI vs IVF. Pt and partner prefer to proceed with IVF. Recommend Male Vitamins for Oligospermia Discussed as follows: Co-Q10 200 mg daily L-Carnitine 200-500 mg daily Vitamin C 500 mg daily Recommend Consult with Dr. Meyer [phone] Recommend repeat SA with 48-72 hours abstinence Recommend Female Vitamins: vitamin Vitamin D (total of 2,000 international units daily) CoQ10 600 mg daily Rout[facility] Within 1 year Genetic carrier Waiver/Completed T&S Within 1 year AMH Within 1 year TSH Within 1 year Rubella/Varicella Within 5 years BMI Testing [facility] CBC Within 1 year CMP Within [...] [place] 2023 8:52 [facility]: [phone]) 224-397508-09-2024 Instructions* Patient Instructions* SMITH Mina - 2023 8:45 AM EDT Recommend Male Vitamins Discussed as follows: Co-Q10 200 mg daily L-Carnitine 200-500 mg daily Vitamin C 500 mg daily Recommend Consult with Dr. Meyer [phone] Recommend repeat SA with 48-72 hours abstinence Recommend Female Vitamins: vitamin Vitamin D (total of 2,000 international units daily) CoQ10 600 mg daily documented in this [facility] Work Phone: 1(649) 795-493105-31-2024 Hospital Discharge instructions Patient Education 10/02/2023 12:54:19 [...] food choices, such as grocery stores and [employer]. What are the signs or symptoms? The [...] pinch a fold of your skin and measureit. You may have other tests to check for underlying conditions. How is this treated? Treatment for this condition often includes changing your lifestyle. Treatment may include some or all of the following: Dietary changes. This may include developing a healthy meal plan. Regular physical activity. This may include activity that causes your heart to beat faster (aerobicexercise) and strength training. Work with your health [...] and how much exercise you get. Take whsz-yiq-dtnneol and prescription medicines only as told by [...] provider. Document Revised: 11/26/2021 Document Reviewed: 11/26/2021 [employer] Patient Education 2022 [employer] 10/02/2023 12:54:15 BMI for Adults BMI for Adults What is BMI? Body mass index (BMI) is a number that is calculated from a person's weight and height. BMI can help estimate how much of a person's weight is composed of fat. BMI does not measure body fat directly.Rather, it is an alternative to procedures that [...] your height. Both height and weight are measured,and the BMI is calculated from those numbers. [...] inches squared measurement is 70 inches x 70inches, which equals 4,900 inches squared. 4.Divide the [...] muscular build, such as an athlete, may havea BMI that is higher than 24.9. In cases like these, BMI is not an accurate measure of body fat. To determine if excess body fat is the cause of a BMI of 25 or higher, further assessments may needto be done by a health care provider. BMI is usually interpreted in the same way for men and women. Where to find more information For more information about BMI, including tools to quickly calculate your BMI, go to these websites: Centers for Disease Control and Prevention: www.cdc.gov [place] Heart Association: www.heart.org National Heart, Lung, and Blood [place]: www.nhlbi.nih.gov Summary Body mass index (BMI) is a number that is calculated from a person's weight and height. BMI may help estimate how much of a person's weight is composed of fat. BMI can help identify thosewho may be at higher risk for certain [...] provider. Document Revised: 01/11/2020 Document Reviewed: 11/18/2019 [employer] Patient Education 2022 [employer] 10/02/2023 12:54:13 Migraine Headache Migraine [...] contain nitrates, glutamate, aspartame, or tyramine. Aged cheeses,chocolate, or caffeine may also be triggers. Doing [...] Follow these instructions at home: Medicines Take jjuu-alp-vvoumls and prescription medicines only as told by your health care provider. Ask your health care provider if the medicine prescribed to you: ?Requires you to avoid driving or using heavy machinery. ?Can cause constipation. You may need to take these actions to prevent or treat constipation: ?Drink enough fluid to keep your urine pale yellow. ?Take bxcg-mdy-apajdkz or prescription medicines. ?Eat foods that are high in fiber, such as beans, whole grains, and fresh fruits and vegetables. ?Limit foods that are high in fat and processed sugars, such as fried or sweet foods. Lifestyle Do not drink alcohol. Do not use any products that contain nicotine or tobacco, such as cigarettes, e- cigarettes, and chewing tobacco. If you need help [...] provider. Document Revised: 08/12/2019 Document Reviewed: 06/02/2019 [employer] Patient Education 2022 [employer] 10/02/2023 12:54:11 Form - Headache Record Form - Headache Record There are many types and causes of headaches. A headache record can help guide your treatment plan.Use this form to record the details. Bring [...] provider. Document Revised: 09/18/2021 Document Reviewed: 09/18/2021 [employer] Patient Education 2022 [employer] 10/02/2023 12:54:08 Eczema Eczema Eczema refers to a group of skin conditions that cause skin to become rough and inflamed. Each typeof eczema has different triggers, symptoms, and treatments. Eczema of any type is usually itchy. Symptoms range from mild to severe. Eczema is not spread from person to person (is not contagious). It can appear on different parts ofthe body at different times. One person's eczema may look different from another person's eczema. What are the causes? The exact cause of this condition is not known. However, exposure to certain environmental factors,irritants, and allergens can make the condition worse. [...] when a person constantly scratches one area ofthe body. Repeated scratching of the area leads to thickened skin (lichenification). This conditioncan accompany other types of eczema. It is more common in adults but may also be seen in children. Nummular eczema. This is a common type of eczema that most often affects the lower legs and the backs of the hands. It typically causes an itchy, red, circular, crusty lesion (plaque). Scratching maybecome a habit and can cause bleeding. Nummular [...] relieve itching quickly and help reduce inflammation. Thesemay be prescribed or purchased over the counter, depending on the strength that is needed. Follow these instructions at home: Take or apply camj-tye-psyurvg and prescription medicines only as told by your health care provider. Use creams or ointments to moisturize your skin. Do not use lotions. Learn what triggers or irritates your symptoms so you can avoid these things. Treat symptom flare-ups quickly. Do not scratch your skin. This can make your rash worse. Keep all follow-up visits. This is important. Where to find more information [place] [employer]: aad.org National Eczema Association: [...] skin to become rough and inflamed. Each typehas different triggers. Eczema of any type causes [...] provider. Document Revised: 01/28/2021 Document Reviewed: 01/28/2021 [employer] Patient Education 2022 [employer]. 10/02/2023 12:54:06 BMI for Adults BMI for Adults What is BMI? Body mass index (BMI) is a number that is calculated from a person's weight and height. BMI can help estimate how much of a person's weight is composed of fat. BMI does not measure body fat directly.Rather, it is an alternative to procedures that [...] your height. Both height and weight are measured,and the BMI is calculated from those numbers. [...] inches squared measurement is 70 inches x 70inches, which equals 4,900 inches squared. 4.Divide the [...] muscular build, such as an athlete, may havea BMI that is higher than 24.9. In cases like these, BMI is not an accurate measure of body fat. To determine if excess body fat is the cause of a BMI of 25 or higher, further assessments may needto be done by a health care provider. BMI is usually interpreted in the same way for men and women. Where to find more information For more information about BMI, including tools to quickly calculate your BMI, go to these websites: Centers for Disease Control and Prevention: www.cdc.gov [place] [employer] Association: www.heart.org National Heart, Lung, and Blood [place]: www.nhlbi.nih.gov Summary Body mass index (BMI) is a number that is calculated from a person's weight and height. BMI may help estimate how much of a person's weight is composed of fat. BMI can help identify thosewho may be at higher risk for certain [...] provider. Document Revised: 01/11/2020 Document Reviewed: 11/18/2019 [employer] Patient Education 2022 [employer]. Follow Up Care 09/22/2023 13:18:17 With:Princess Dumont FAM, MED Address: [address] [place] [address] [place] [id number]- [facility] (1) When:07/08/2023 Comments:for f/u [facility] 04-25-2024 Hospital Discharge instructions Patient Education 08/27/2023 19:11:57 [...] It is important to know how many carbohydrates(in grams or by serving size) you can [...] sizes of common carbohydrate-rich foods. Each of theseservings has about 15 g of carbohydrates: 1 [...] 1.Identify the foods that contain carbohydrates: Rice. [place]. Milk. Strawberries. 2.Calculate how many servings you [...] and snacks. Where to find more information [place] Diabetes Association: diabetes.org Centers for Disease Control [...] well you manage your blood glucose. This helpsyou manage your diabetes. A dietitian can help you make a meal plan and calculate how many carbohydrates you should have at each meal and snack. This information is not intended to replace advice given to you by your health care provider. Make sure you discuss any questions you have with your health care provider. Document Revised: 11/21/2020 Document Reviewed: 11/21/2020 [employer] Patient Education 2022 [employer]. 08/27/2023 19:11:56 Calorie Counting for Weight Loss [...] figure out how many calories you need kvng day and will suggest ways to reach [...] determine how many calories you should get eachday. To meet your daily calorie goal, you [...] label. If a food does not have aNutrition Facts label, try to look up the calories online or ask your dietitian for help. Remember that calories are listed per serving. If you choose to have more than one serving of a food, you will have to multiply the calories per serving by the number of servings you plan to eat. Forexample, the label on a package of bread [...] also try weighing out portions on a kitchenscale. With time, you will be able to [...] Get creative. Try different apps or programs ifwriting down calories does not work for you. [...] other drinks without added sugar. If you wantan alcoholic beverage, choose a lower-calorie option, such as a glass of wine or light beer. ?Ask for dressings, sauces, and syrups on the side. These are usually high in calories, so you should limit the amount you eat. ?If you want a salad, choose a garden salad and ask for grilled meats. Avoid extra toppings such asbacon, cheese, or fried items. Ask for the dressing on the side, or ask for olive oil and vinegar or lemon to use as dressing. Estimate how many servings of a food you are given. Knowing serving sizes will help you be aware ofhow much food you are eating at restaurants. [...] label. If a food does not have aNutrition Facts label, try to look up the [...] provider. Document Revised: 05/31/2020 Document Reviewed: 05/31/2020 [employer] Patient Education 2022 [employer]. 08/27/2023 19:11:54 Exercising to Lose Weight Exercising to Lose Weight Getting regular exercise is important for everyone. It is especially important if you are overweight. Being overweight increases your risk of heart disease, stroke, diabetes, high blood pressure, andseveral types of cancer. Exercising, and reducing the [...] of moderate-intensity exercise a week to maintain theirbody weight. Vigorous-intensity exercise Vigorous-intensity exercise is any [...] you need and what types of activities aresafe for you. Nutrition Make changes to your diet as told by your health care provider or diet and industrial specialist (dietitian). This may include: ?Eating fewer calories. ?Eating more protein. ?Eating less unhealthy fats. ?Eating a diet that includes fresh fruits and vegetables, whole grains, low-fat dairy products, andlean protein. ?Avoiding foods with added fat, salt, [...] provider. Document Revised: 06/16/2021 Document Reviewed: 06/16/2021 [employer] Patient Education 2022 [employer]. 08/27/2023 19:11:53 BMI for Adults BMI for Adults What is BMI? Body mass index (BMI) is a number that is calculated from a person's weight and height. BMI can help estimate how much of a person's weight is composed of fat. BMI does not measure body fat directly.Rather, it is an alternative to procedures that [...] your height. Both height and weight are measured,and the BMI is calculated from those numbers. [...] inches squared measurement is 70 inches x 70inches, which equals 4,900 inches squared. 4.Divide the [...] muscular build, such as an athlete, may havea BMI that is higher than 24.9. In cases like these, BMI is not an accurate measure of body fat. To determine if excess body fat is the cause of a BMI of 25 or higher, further assessments may needto be done by a health care provider. BMI is usually interpreted in the same way for men and women. Where to find more information For more information about BMI, including tools to quickly calculate your BMI, go to these websites: Centers for Disease Control and Prevention: www.cdc.gov [place] [employer] Association: www.heart.org National Heart, Lung, and Blood [place]: www.nhlbi.nih.gov Summary Body mass index (BMI) is a number that is calculated from a person's weight and height. BMI may help estimate how much of a person's weight is composed of fat. BMI can help identify thosewho may be at higher risk for certain [...] provider. Document Revised: 01/11/2020 Document Reviewed: 11/18/2019 [employer] Patient Education 2022 [employer]. 08/27/2023 19:11:48 Musculoskeletal Pain Musculoskeletal Pain Musculoskeletal pain refers to aches and pains in your bones, joints, muscles, and the tissues thatsurround them. This pain can occur in any part of the body. It can last for a short time (acute) ora long time (chronic). A physical exam, lab tests, and imaging studies may be done to find the cause of your musculoskeletal pain. Follow these instructions at home: Lifestyle Try to control or lower your stress levels. Stress increases muscle tension and can worsen musculoskeletal pain. It is important to recognize when you are anxious or stressed and learn ways to manageit. This may include: ?Meditation or yoga. ?Cognitive [...] are taken by mouth or applied to theskin. Take iveo-tdm-kukjpxl and prescription medicines only as told by your health care provider. When your pain is severe, bed rest may be helpful. Lie or sit in any position that is comfortable, but get out of bed and walk around at least every couple of hours. If directed, apply heat to the affected area as often as told by your health care provider. Use theheat source that your health care provider recommends, [...] a physical therapist. This person can help youcome up with a safe exercise program. If [...] your bones, joints, muscles, and the tissues thatsurround them. This pain can occur in any part of the body. Your health care provider may recommend that you see a physical therapist. This person can help youcome up with a safe exercise program. Do [...] provider. Document Revised: 08/23/2020 Document Reviewed: 08/01/2020 [employer] Patient Education 2022 [employer]. 08/27/2023 19:05:09 Cervicogenic Headache Cervicogenic Headache In a cervicogenic headache, the pain moves from your neck to your head. Most cervicogenic headachesstart in the upper part of the neck with the first three cervical bones (cervical vertebrae). What are the causes? The most common cause of this condition is a traumatic injury to the bones and tissues in your neck(cervical spine). Whiplash is an example of a [...] includes your primary health care provider, a set painter, a neurologist, and a physical therapist. Follow these instructions at home: Take flzc-hux-utdkejt and prescription medicines only as told by [...] includes your primary health care provider, a set painter, a neurologist, and a physical therapist. [...] headache record can help guide your treatment plan.Use this form to record the details. Bring [...] provider. Document Revised: 09/18/2021 Document Reviewed: 09/18/2021 [employer] Patient Education 2022 [employer] 08/27/2023 19:05:07 Chronic Migraine Headache [...] to light and sound, and vision changes. Migrainesthat keep coming back are called recurrent migraines. A migraine is called a chronic migraine if ithappens at least 15 days in a month [...] tests cannot diagnose migraines, but they can helpto rule out other causes of headaches. Taking [...] Follow these instructions at home: Medicines Take syhb-ucj-ohxgopb and prescription medicines only as told by your health care provider. Ask your health care provider if the medicine prescribed to you requires you to avoid driving or using machinery. Lifestyle Do not use any products that contain nicotine or tobacco, such as cigarettes, e- cigarettes, and chewing tobacco. If you need help [...] of moderate-intensity exercise, such as walking, biking, oryoga, or 75 minutes of vigorous exercise each [...] for Headache and Migraine Patients (CHAMP): headachemigraine.org [place] Migraine Foundation: americanmigrainefoundation.org National Headache Foundation: headaches.org [...] provider. Document Revised: 06/06/2020 Document Reviewed: 06/06/2020 [employer] Patient Education 2022 [employer]. 08/27/2023 19:05:03 BMI for Adults BMI for Adults What is BMI? Body mass index (BMI) is a number that is calculated from a person's weight and height. BMI can help estimate how much of a person's weight is composed of fat. BMI does not measure body fat directly.Rather, it is an alternative to procedures that [...] your height. Both height and weight are measured,and the BMI is calculated from those numbers. [...] inches squared measurement is 70 inches x 70inches, which equals 4,900 inches squared. 4.Divide the [...] muscular build, such as an athlete, may havea BMI that is higher than 24.9. In cases like these, BMI is not an accurate measure of body fat. To determine if excess body fat is the cause of a BMI of 25 or higher, further assessments may needto be done by a health care provider. BMI is usually interpreted in the same way for men and women. Where to find more information For more information about BMI, including tools to quickly calculate your BMI, go to these websites: Centers for Disease Control and Prevention: www.cdc.gov [place] [employer]: www.heart.org National Heart, Lung, and Blood [place]: www.nhlbi.nih.gov Summary Body mass index (BMI) is a number that is calculated from a person's weight and height. BMI may help estimate how much of a person's weight is composed of fat. BMI can help identify thosewho may be at higher risk for certain [...] provider. Document Revised: 01/11/2020 Document Reviewed: 11/18/2019 [employer] Patient Education 2022 [employer]. 08/27/2023 19:05:01 Health Maintenance, Female Health Maintenance, [...] high risk for HIV. Your health care providermay recommend a prescription medicine to help prevent HIV infection. If you choose to take medicineto prevent HIV, you should first get tested [...] minerals and strength with aging. This can resultin bone fractures. If you are 65 years [...] you need help quitting, ask your health careprovider. Do not use street drugs. Do not [...] provider. Document Revised: 09/09/2021 Document Reviewed: 09/09/2021 [employer] Patient Education 2022 [employer]. Follow Up Care 08/17/2023 08:42:02 With:Princess Dumont [facility] Address: [address] [place] [address] [address]- When:Within 6 Week(s) Comments:weight loss and headaches [facility] 10-19-2023 Evaluation + Plan note Future Scheduled Tests Laboratory* U Protein/Creat Ratio 02/19/23 * HgbA1c 02/19/23 * Microalbumin Level Urine 02/19/23 * TSH With T4fr Reflex 02/19/23 * Vitamin D 25 Hydroxy 02/19/23 * CBC w/ Auto Diff 02/19/23 * Comprehensive Metabolic Panel 10/19/23 * Lipid Panel 02/19/23 Radiology* XR Spine Cervical 4 or 5 Views 02/19/23 [facility] 10-19-2023 Hospital Discharge instructions Patient Education 02/19/2023 08:34:11 Cervicogenic Headache Cervicogenic Headache In a cervicogenic headache, the pain moves from your neck to your head. Most cervicogenic headachesstart in the upper part of the neck with the first three cervical bones (cervical vertebrae). What are the causes? The most common cause of this condition is a traumatic injury to the bones and tissues in your neck(cervical spine). Whiplash is an example of a [...] includes your primary health care provider, a set painter, a neurologist, and a physical therapist. Follow these instructions at home: Take zgrs-xks-pzlfwsp and prescription medicines only as told by [...] includes your primary health care provider, a set painter, a neurologist, and a physical therapist. This information is not intended to replace advice given to you by your health care provider. Make sure you discuss any questions you have with your health care provider. Document Revised: 10/24/2021 Document Reviewed: 10/24/2021 [employer] Patient Education 2022 [employer]. 02/19/2023 08:34:09 Migraine Headache Migraine Headache A [...] contain nitrates, glutamate, aspartame, or tyramine. Aged cheeses,chocolate, or caffeine may also be triggers. Doing [...] Follow these instructions at home: Medicines Take netw-cca-enutwot and prescription medicines only as told by your health care provider. Ask your health care provider if the medicine prescribed to you: ?Requires you to avoid driving or using heavy machinery. ?Can cause constipation. You may need to take these actions to prevent or treat constipation: ?Drink enough fluid to keep your urine pale yellow. ?Take erxd-doz-afgcuho or prescription medicines. ?Eat foods that are high in fiber, such as beans, whole grains, and fresh fruits and vegetables. ?Limit foods that are high in fat and processed sugars, such as fried or sweet foods. Lifestyle Do not drink alcohol. Do not use any products that contain nicotine or tobacco, such as cigarettes, e- cigarettes, and chewing tobacco. If you need help [...] 08/12/2019 Document Reviewed: 06/02/2019 [employer] Patient Education 2023 [employer] 02/19/2023 08:34:03 Form - Headache Record Form - Headache Record There are many types and causes of headaches. A headache record can help guide your treatment plan.Use this form to record the details. Bring [...] provider. Document Revised: 09/18/2021 Document Reviewed: 09/18/2021 [employer] Patient Education 2022 [employer] 02/19/2023 01:02:45 General Headache Without Cause General Headache Without Cause A headache is pain or discomfort felt around the head or neck area. There are many causes and typesof headaches. A few common types include: Tension headaches. Migraine headaches. Cluster headaches. Chronic daily headaches. Sometimes, the specific cause of a headache may not be found. Follow these instructions at home: Watch your condition for any changes. Let your health care provider know about them. Take these steps to help with your condition: Managing pain Take jact-bnp-ngqbhtk and prescription medicines only as told by [...] you need help quitting, ask your health careprovider. Exercise regularly as told by your health [...] that is different from the usual headache, orif your symptoms are not helped by medicine. Get help right away if your headache becomes severe, you vomit, you have a loss of vision, you loseyour balance, or you have a seizure. This information is not intended to replace advice given to you by your health care provider. Make sure you discuss any questions you have with your health care provider. Document Revised: 09/18/2021 Document Reviewed: 09/18/2021 [employer] Patient Education 2022 [employer] 02/19/2023 01:02:42 Form - Headache Record Form - Headache Record There are many types and causes of headaches. A headache record can help guide your treatment plan.Use this form to record the details. Bring [...] your neck to your head. Most cervicogenic headachesstart in the upper part of the neck with the first three cervical bones (cervical vertebrae). What are the causes? The most common cause of this condition is a traumatic injury to the bones and tissues in your neck(cervical spine). Whiplash is an example of a [...] includes your primary health care provider, a set painter, a neurologist, and a physical therapist. Follow these instructions at home: Take hsek-woh-ymjygqp and prescription medicines only as told by [...] includes your primary health care provider, a set painter, a neurologist, and a physical therapist. This information is not intended to replace advice given to you by your health care provider. Make sure you discuss any questions you have with your health care provider. Document Revised: 10/24/2021 Document Reviewed: 10/24/2021 [employer] Patient Education 2022 [employer]. 02/19/2023 01:02:35 Chronic Migraine Headache Chronic Migraine [...] to light and sound, and vision changes. Migrainesthat keep coming back are called recurrent migraines. A migraine is called a chronic migraine if ithappens at least 15 days in a month [...] tests cannot diagnose migraines, but they can helpto rule out other causes of headaches. Taking [...] Follow these instructions at home: Medicines Take fvxt-pqg-wuazkhw and prescription medicines only as told by your health care provider. Ask your health care provider if the medicine prescribed to you requires you to avoid driving or using machinery. Lifestyle Do not use any products that contain nicotine or tobacco, such as cigarettes, e- cigarettes, and chewing tobacco. If you need help [...] of moderate-intensity exercise, such as walking, biking, oryoga, or 75 minutes of vigorous exercise each [...] for Headache and Migraine Patients (CHAMP): headachemigraine.org [place] Migraine Foundation: americanmigrainefoundation.org National Headache Foundation: headaches.org [...] provider. Document Revised: 06/06/2020 Document Reviewed: 06/06/2020 [employer] Patient Education 2022 [employer]. Follow Up Care 02/17/2023 08:10:14 With:Princess Dumont FAM, MED Address: [address], [address] [place] [phone] When:Within 1 Month(s) Comments:headaches. neck pain With:Princess Dumont FAM, MED Address: [address], [address] [place] [phone] When:Within 1 Year(s) Comments:annual wellness, anxiety/ depression [facility] 03-23-2022 Hospital Discharge instructions Patient Education 07/24/2021 17:17:00 [...] problems. It is used to check whether aperson is obese, overweight, healthy weight, or underweight. [...] muscular build, such as an athlete, may havea BMI that is higher than 24.9. In cases like these, BMI is not an accurate measure of body fat. To determine if excess body fat is the cause of a BMI of 25 or higher, further assessments may needto be done by a health care provider. [...] 12/30/2004 Document Revised: 04/02/2018 Document Reviewed: 03/03/2018 [employer] Patient Education 2020 [employer]. 07/24/2021 17:16:58 Health Maintenance, Female Health Maintenance, [...] high risk for HIV. Your health care providermay recommend a prescription medicine to help prevent HIV infection. If you choose to take medicineto prevent HIV, you should first get tested [...] minerals and strength with aging. This can resultin bone fractures. If you are 65 years [...] contain nicotine or tobacco, such as cigarettes, e- cigarettes, and chewing tobacco. If you need help [...] 11/03/2011 Document Revised: 04/13/2019 Document Reviewed: 04/13/2019 [employer] Patient Education 2020 [employer]. Follow Up Care 06/26/2021 18:00:45 With:Leigh Ann Covington CNP Address: When: only if needed [facility] Evaluation + Plan note Future Appointments Appointment Date:10/03/2021 01:00:00 PM Scheduled Provider:Naya ABDI Location: [place] Appointment Type:[facility] Primary Care Evaluation + Plan note Future Appointments Appointment Date:03/25/2023 07:00:00 AM Scheduled Provider:Princess Dumont Location:[facility] Appointment Type:FM Open Future Scheduled Tests Laboratory* U Protein/Creat Ratio 02/19/23 * HgbA1c 02/19/23 * Microalbumin Level Urine 02/19/23 * TSH With T4fr Reflex 02/19/23 * Vitamin D 25 Hydroxy 02/19/23 * CBC w/ Auto Diff 02/19/23 * Comprehensive Metabolic Panel 02/19/23 * Lipid Panel 02/19/23 Radiology* XR Spine Cervical 4 or 5 Views 02/19/23 [facility] Evaluation + Plan note Future Appointments Appointment Date:10/21/2023 07:20:00 AM Scheduled Provider:Princess Dumont Location:[facility] Appointment Type:FM Open Future Scheduled Tests Laboratory* TSH With T4fr Reflex 02/19/23 * Vitamin D 25 Hydroxy 02/19/23 * CBC w/ Auto Diff 02/19/23 * Comprehensive Metabolic Panel 02/19/23 * Lipid Panel 02/19/23 Radiology* XR Spine Cervical 4 or 5 Views 02/19/23 [facility] Evaluation + Plan note Future Appointments Appointment Date:10/05/2024 07:00:00 AM Scheduled Provider:Mallory Judd Location:[facility] Appointment Type:FM Open [facility] Evaluation note* Diagnosis Endometrial polyp Polyp of corpus uteri documented in this encounter [facility] Work Phone: Evaluation note* Diagnosis Pre-procedure lab exam Pre-procedural laboratory examination Female infertility Female infertility of unspecified origin documented in this encounter [facility] Work Phone: Evaluation note* Diagnosis Female infertility Female infertility of unspecified origin documented in this encounter [facility] Work Phone: Evaluation note* Diagnosis Female infertility Female infertility of unspecified origin documented in this encounter [facility] Work Phone: Evaluation note* Diagnosis Encounter for assisted reproductive fertility cycle Encounter for assisted reproductive fertility procedure cycle documented in this encounter [facility] Work Phone: [phone] note* Diagnosis Female infertility Female infertility of unspecified origin Pre-procedure lab exam Pre-procedural laboratory examination documented in this encounter [facility] Work Phone: [phone] note* Diagnosis Female infertility Female infertility of unspecified origin documented in this encounter [facility] Work Phone: [phone] note* Diagnosis Female infertility Female infertility of unspecified origin documented in this encounter [facility] Work Phone: [phone] note* Diagnosis Female infertility Female infertility of unspecified origin documented in this encounter [facility] Work Phone: [phone] note* Diagnosis Encounter for assisted reproductive fertility cycle Encounter for assisted reproductive fertility procedure cycle documented in this encounter [facility] Work Phone: [phone] note* Diagnosis Encounter for assisted reproductive fertility cycle Encounter for assisted reproductive fertility procedure cycle documented in this encounter [facility] Work Phone: [phone] note* Diagnosis Well woman exam with routine gynecological exam Routine gynecological examination documented in this encounter [facility] HealthcareEvaluation note* Diagnosis Encounter for screening for other viral diseases- Primary Encounter for Rh blood typing Encounter for blood typing Screening for STDs (sexually transmitted diseases) Screening examination for venereal disease Genetic screening Other genetic screening Fertility testing Female infertility associated with male factors Female infertility of other specified origin documented in this encounter [facility] Work Phone: [phone] note* Diagnosis Fertility testing [Z31.41]- Primary Fertility testing 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 [Z31.81, N97.8] documented in this encounter [facility] Work Phone: [phone] note* Diagnosis Endometrial polyp Polyp of corpus uteri documented in this encounter [facility] Work Phone: [phone] note* Diagnosis Female infertility Female infertility of unspecified origin documented in this encounter [facility] Work Phone: [phone] note* Diagnosis Encounter for assisted reproductive fertility cycle Encounter for assisted reproductive fertility procedure cycle documented in this encounter [facility] Work Phone: Evaluation note* Diagnosis Encounter for assisted reproductive fertility cycle Encounter for assisted reproductive fertility procedure cycle Encounter for test, result unknown documented in this encounter [facility] Work Phone: Evaluation note* Diagnosis Encounter to determine viability of , single or unspecified fetus documented in this encounter [facility] Work Phone: Evaluation note* Diagnosis Missed [...] note* Diagnosis (HHS-HCC) documented in this encounter [facility] Work Phone: Evaluation note* Diagnosis Second [...] gestation of (HHS-HCC) documented in this encounter [facility] HealthcareHospital course Narrative No data available for this section [facility] Hospital Discharge instructions No data available for this section [facility] Progress note No data available for this section [facility] Reason for referral (narrative)* Consultation (Routine) - AuthorizedSpecialtyDiagnoses / ProceduresReferred By ContactReferred To ContactGenetics Diagnoses Genetic screening Trish Thorpe APRN-CNP [address] [place] [address] Referral IDStatusReasonStart DateExpiration DateVisits RequestedVisits [id number] Specialty Services Required [facility] Work Phone: Reason for visit Narrative* Imaging (Routine) - AuthorizedSpecialtyDiagnoses / ProceduresReferred By ContactReferred To ContactRadiology Diagnoses Female infertility Procedures KELSY US Pelvis Limited Follicles - Follicle Studies Performed America Chavez APRN-CNP [address] [place] [address] Phone: tel: fax: Referral IDStatusReasonStart DateExpiration DateVisits RequestedVisits [id number] Perform Procedure [facility] Work Phone: [phone] for visit Narrative* Imaging (Routine) - Pending ReviewSpecialtyDiagnoses / ProceduresReferred By ContactReferred To ContactRadiology Diagnoses Female infertility Procedures KELSY US Pelvis Limited Follicles - Follicle Studies Performed America Chavez, WAREHOUSE SPECIALIST-APPLICATIONS ENGINEERING MANAGER [address] [place] [address] Phone: tel: fax: Referral IDStatusReasonStart DateExpiration DateVisits RequestedVisits [id number] Review Perform Procedure [facility] Work Phone: [phone] for visit Narrative* Procedure (Routine) - AuthorizedSpecialtyDiagnoses / ProceduresReferred By ContactReferred To ContactReproductive Endocrinology and Infertility Diagnoses Encounter for assisted reproductive fertility cycle Procedures Egg Retrieval LA FOLLICLE PUNCTURE OOCYTE RETRIEVAL ANY METHOD CHG US GUIDANCE ASPIRATION OVA IMG S&I CHG OOCYTE ID FROM FOLLICULAR FLU CHG BX OOCYTE POLR BDY/AMBER BLST MICROTQ <= 5 AMBER CHG BX OOCYTE MICROTQ >5 AMBER CHG UNLISTED MOLECULAR PATHOLOGY PROCEDURE CHG CYTOGENETICS&MOLEC CYTOGENETICS INTERP&REP Beth Warren MD [address] [place] [address] Phone: tel: fax: Referral IDStatusReasonStart DateExpiration DateVisits RequestedVisits [id number]/25/20249/25/202511 [facility] Work Phone: reason for visit Narrative* Imaging (Routine) - AuthorizedSpecialtyDiagnoses / ProceduresReferred By ContactReferred To ContactRadiology Diagnoses Female infertility Procedures KELSY US Pelvis Limited Follicles - Follicle Studies Performed Donya Abernathy, WAREHOUSE SPECIALIST-APPLICATIONS ENGINEERING MANAGER [address] [facility], [place] [address] Phone: tel: fax:[phone] Referral IDStatusReasonStart DateExpiration DateVisits RequestedVisits [id number] Perform Procedure [facility] Work Phone: Reason for visit Narrative* Procedure (Routine) - AuthorizedSpecialtyDiagnoses / ProceduresReferred By ContactReferred To ContactReproductive Endocrinology and Infertility Diagnoses Encounter for assisted reproductive fertility cycle Procedures Egg Retrieval LA FOLLICLE PUNCTURE OOCYTE RETRIEVAL ANY METHOD CHG US GUIDANCE ASPIRATION OVA IMG S&I CHG OOCYTE ID FROM FOLLICULAR FLU CHG BX OOCYTE POLR BDY/AMBER BLST MICROTQ <= 5 AMBER CHG BX OOCYTE MICROTQ >5 AMBER CHG UNLISTED MOLECULAR PATHOLOGY PROCEDURE CHG CYTOGENETICS&MOLEC CYTOGENETICS INTERP&REP Donya Abernathy, WAREHOUSE SPECIALIST-APPLICATIONS ENGINEERING MANAGER [address] [facility], [place] [address] Phone: tel: fax: Referral IDStatusReasonStart DateExpiration DateVisits RequestedVisits [id number]/29/202410/29/202510 [facility] Work Phone: reason for visit Narrative* Imaging (Routine) - AuthorizedSpecialtyDiagnoses / ProceduresReferred By ContactReferred To ContactRadiology Diagnoses Female infertility Procedures KELSY US Endometrial Lining Check Donya Abernathy, WAREHOUSE SPECIALIST-APPLICATIONS ENGINEERING MANAGER [address] [facility], [place] [address] Phone: tel: fax: Referral IDStatusReasonStart DateExpiration DateVisits RequestedVisits [id number] Perform Procedure [facility] Work Phone: reason for visit Narrative* Procedure (Routine) - AuthorizedSpecialtyDiagnoses / ProceduresReferred By ContactReferred To ContactReproductive Endocrinology and Infertility Diagnoses Encounter for assisted reproductive fertility cycle Procedures Embryo Transfer LA EMBRYO TRANSFER INTRAUTERINE CHG ULTRASONIC GUIDANCE INTRAOPERATIVE CHG THAWING CRYOPRESERVED EMBRYO CHG ASSTD EMBRYO HATCHING MICROTQS ANY METH CHG PREPJ EMBRYO TR Juan Chavarria MD [address], [facility] [address] [place] [address] Phone: tel: fax: Referral IDStatusReasonStart DateExpiration DateVisits RequestedVisits [id number]/7/20252/7/202611 [facility] Work Phone: Reason for visit Narrative* Imaging (Routine) - AuthorizedSpecialtyDiagnoses / ProceduresReferred By ContactReferred To ContactRadiology Diagnoses ([facility]) Procedures US OB detail anatomy Layo Courtney DO [address] [facility] [address], [place] [address] Phone: tel: fax: Referral IDStatusReasonStart DateExpiration DateVisits RequestedVisits [id number] Perform Procedure [facility] Work Phone: Summary Purpose Family History [...] Advanced Directives Records Found Reason for Referral SpecialtyDiagnoses / ProceduresReferred By ContactReferred To Contact Diagnoses Endometrial polyp Procedures Polypectomy Juan Chavarria MD [address], [facility] [address] [place] [address] GEOVANNA Darío Satnam [address] [place] [address] [place] [address] Referral IDStatusReasonStart DateExpiration DateVisits RequestedVisits [id number]/23/20249/23/202511 Additional Source Comments INFORMATION SOURCE (unrecogn ized section and content) DATE CREATED AUTHOR 08/01/2022 [facility] DATE CREATED AUTHOR AUTHOR'S ORGANIZ ATION 04/04/2024 [facility] DATE CREATED AUTHOR AUTHOR'S ORGANIZ ATION 06/15/2024 [facility] DATE CREATED AUTHOR AUTHOR'S ORGANIZ ATION 07/02/2024 [facility] DATE CREATED AUTHOR AUTHOR'S ORGANIZ ATION 07/14/2024 [facility] DATE CREATED AUTHOR AUTHOR'S ORGANIZ ATION 10/11/2024 [facility] DATE CREATED AUTHOR AUTHOR'S ORGANIZ ATION 02/16/2025 [facility] EPIC Patient Care team informatio n (unrecognized section and content) Team MemberRelationshipSpecialtyStart DateEnd Date Allyssa Robles RN Registered NurseReproductive Endocrinology and Infertility12/25/23Team Member RelationshipSpecialtyStart DateEnd Date Allyssa Robles RN Registered NurseReproductive Endocrinology and Infertility12/25/23am Member RelationshipSpecialtyStart DateEnd Date Allyssa Robles RN Registered NurseReproductive Endocrinology and Infertility12/25/23Team Member RelationshipSpecialtyStart DateEnd Date Allyssa Robles RN Registered NurseReproductive Endocrinology and Infertility12/25/23am Member RelationshipSpecialtyStart DateEnd Date Allyssa Robles RN Registered NurseReproductive Endocrinology and Infertility12/25/23Team Member RelationshipSpecialtyStart DateEnd Date Allyssa Robles RN Registered NurseReproductive Endocrinology and Infertility12/25/23am Member RelationshipSpecialtyStart DateEnd Date Allyssa Robles RN Registered NurseReproductive Endocrinology and Infertility12/25/23Team Member RelationshipSpecialtyStart DateEnd Date Allyssa Robles RN Registered NurseReproductive Endocrinology and Infertility12/25/23Team Member RelationshipSpecialtyStart DateEnd Date Allyssa Robles RN Registered NurseReproductive Endocrinology and Infertility12/25/23Team Member RelationshipSpecialtyStart DateEnd Date Ginger Torres LPN Licensed Practical Nurse12/10/23Team MemberRelationshipSpecialtyStart DateEnd Date Allyssa Robles RN Registered NurseReproductive Endocrinology and Infertility12/25/23Team Member RelationshipSpecialtyStart DateEnd Date Allyssa Robles RN Registered NurseReproductive Endocrinology and Infertility12/25/23Team Member RelationshipSpecialtyStart DateEnd Date Allyssa Robles RN Registered NurseReproductive Endocrinology and Infertility12/25/23Team Member RelationshipSpecialtyStart DateEnd Date Allyssa Robles RN Registered NurseReproductive Endocrinology and Infertility12/25/23Team Member RelationshipSpecialtyStart DateEnd Date Allyssa Robles RN Registered NurseReproductive Endocrinology and Infertility12/25/23 Reason for Visit (unrecogniz ed section and content) SpecialtyDiagnoses / ProceduresReferred By ContactReferred To Contact Diagnoses Endometrial polyp Procedures Polypectomy Juan Chavarria MD [address] [facility] [address], [place] [address] [address] [place] [address] Referral IDStatusReasonStknoxville DateExpiration DateVisits RequestedVisits [id number]/[id number] / Procedures Referred By ContactReferred To ContactRadiology Diagnoses Female infertility Procedures KELSY US Pelvis Limited Follicles - Follicle Studies Performed America Chvaez, WAREHOUSE SPECIALIST-APPLICATIONS ENGINEERING MANAGER [address] [place] [address] Referral IDStatusReasonStart DateExpiration DateVisits RequestedVisits [id number] Perform Procedure [id number] Women VisitReasonCommentsNew Patient Fertility ConsultationReasonCommentsIVF ConsultationReasonCommentsAmenorrhea ReasonCommentsRoutine Visit FOR RECORDS PERTAINING TO PATIENTS WHO [...] BE BASED ON THE PRIMARY CLINICAL RECORDS. [facility] [employer], [facility]. provides no warranty or guarantee of the accuracy or completeness of information in this document.
[2025-02-24 17:45] VITALS: BP 122/78; PULSE 90; TEMP 36.6
== END 2025-02-24 11:15 | disposition home or self-care (01) ==
LOC: FBCO 11:03
PROVIDERS: Visit Provider Obstetrics & Gynecology
DX: Z39.1 Encounter for care and examination of lactating mother (principal)

== ENCOUNTER 2025-03-01 08:10 | Outpatient (OUT) | payer OTHER, SELFPAY ==
--- OUTSIDE RECORDS SUMMARY | 2025-03-01 08:13 | XMS_ITS | Clinical Summary ---
Author Organization [facility] Address [address] [place] [address] Phone Care Team Providers Care Cream Tester Name Role Phone Allyssa Robles RN Unavailable Unavailable Allergies Active AllergyReactionsCriticalityNoted SgahGabibckeSbklaOznjZwv74/09/2024Nickel MywySlk1012/11/2023 Medications MedicationSigDispense QuantityRefillsLast FilledStart DateEnd DateStatus omztzxvx60-ipnk-roarx-ucdpk6 29-1-400 mg combo pack,tablet and cap,DR Take [...] mg) by mouth once daily. 90 tablet 11006/19/786833/ctive lidocaine-prilocaine (Emla) 2.5-2.5 % cream Indications:Female infertilityApply topically once daily. Apply to treatment area 1 hour prior to injection. 30 g 3:33 PM ESTExpired Additional Information Patient not taking.Reported on 03/22/2024 Active Problems ProblemNoted DateDiagnosed DateFemale xdvoihnfltv36/14/2024PONV (postoperative nausea and vomiting)4CommentsYes Family History Medical HistoryRelationNameCommentsPolycystic kidney diseaseBrotherPolycystic kidney diseaseMotherRelationNameStatusCommentsBrotherMother Social History Tobacco UseTypesPacks/DayYears UsedDateSmoking Tobacco: NeverSmokeless Tobacco: Never Tobacco Cessation:Counseling Given: No Alcohol UseStandard Drinks/WeekCommentsNot Currently0 (1 standard drink = 0.6 oz pure alcohol)OccassionallyCommentsYesSex and Gender InformationValueDate RecordedSex Assigned at BirthNot on fileLegal VzkHghhpp65/05/2024 8:54 AM EDT Gender IdentityNot on fileSexual OrientationNot on file Last Filed Vital Signs Vital SignReadingTime TakenCommentsBlood Mapdrfkk18/6203/22/2024 10:45 AM EST Nynxc792003/22/2024 10:45 AM GPFVrgltgtkehi05.3 ??C (97.3 ??F)03/22/2024 9:45 AM ESTRespiratory Sxfl554005/22/2023 10:45 AM ESTOxygen Ypkmlxqlak650%03/22/2024 10:45 AM ESTInhaled Oxygen Concentration--Toiyda26.9 kg (165 lb 2 oz)03/22/2024 8:29 AM XMSYhstxt822 cm (5' 3 )03/22/2024 8:29 AM ESTBody Mass Index29.25 03/22/2024 8:29 AM EST Plan of Treatment Health MaintenanceDue DateLast DoneCommentsLipid Panel1997MMR Vaccines (1 of 1 - Standard series)1998Hepatitis B Vaccines (1 of 3 - 19+ 3-dose series)2016HPV/Kipdfd2412/11/2018DTaP/Tdap/Td Vaccines (2 - Td or Tdap) Influenza Vaccine (#1)2024HPV Vaccines (1 - 3-dose standard series)2024OVID-19 Vaccine (1 - season)2025Yearly Adult Edggcqzo61/13/756909/ervical Cancer Nrnqunkol14/12/2027Pap Smear Zoster Vaccines (1 of 2)8012/20/2009RSV High Risk: (Elderly (60+) or Population) (1 - 1-dose 75+ series)2072 Meningococcal VaccineAged Out12/20/2009No longer eligible based on patient's age to complete this topicHIV UjbqynkeyHrfznrqwa32/09/2024Hepatitis C Screening Iwxedodsd58/09/2024HIB VaccinesAged OutNo longer eligible based on patient's [...] topic Procedures Procedure NamePriorityDate/TimeAssociated DiagnosisCommentsHEPATITIS C ANTIBODY Wyntexy3312/11/2023 10:21 AM EDT Screening for STDs (sexually transmitted diseases) HIV 1/2 ANTIGEN/ANTIBODY SCREEN WIH REFLEX TO KXXZHJNGUZVBXhcqnax81/09/2024 10:21 AM EDT Screening for STDs (sexually transmitted diseases) from Last 3 Months or Most Recently Relevant to Health Maintenance Results * Hepatitis C Antibody (2023 10:21 AM EDT)ComponentValueRef RangeTest MethodAnalysis TimePerformed AtPathologist SignatureHepatitis C Anitbody NonreactiveNonreactive LAB IMMUNOASSAY METHOD 2023 7:11 PM EDTBR[facility] LABComment:Results from patients taking biotin supplements or receiving high-dose biotin therapy should be interpreted with caution due to possible interference with this test. Providers may contact their locallaboratory for further information.Specimen (Source)Anatomical Location / LateralityCollection Method / VolumeCollection TimeReceived TimeBloodVenous blood specimen / UnknownVenipuncture / Rconpmb5912/11/2023 10:21 AM EDT2023 10:21 AM EDT Narrative Authorizing ProviderResult TypeResult StatusTrish Sun TRAFFIC CHIEF[facility] BLOOD ORDERABLESFinal ResultPerforming OrganizationAddressCity/State/ZIP CodePhone Number [facility] [address] [place] [phone] * HIV 1/2 Antigen/Antibody Screen with Reflex to Confirmation (2023 10:21 AM EDT)ComponentValueRef RangeTest MethodAnalysis TimePerformed AtPathologist SignatureHIV 1/2 Antigen/Antibody Screen with Reflex to Confirmation NonreactiveNonreactive LAB IMMUNOASSAY METHOD 2023 7:37 PM EDTBR[facility] LABSpecimen (Source)Anatomical Location / Laterality Collection Method / VolumeCollection TimeReceived TimeBloodVenous blood specimen / UnknownVenipuncture / Biohxdk3612/11/2023 10:21 AM EDT2023 10:21 AM EDT Narrative [facility] - 2023 7:37 PM EDT HIV Ag/Ab screen is performed using the Siemens MixCommercellNano HIV Ag/Ab Combo assay which detects the presence of HIV p24 antigen as well as antibodies to HIV-1 (Group M and O) and HIV-2. No laboratory evidence of HIV infection. If acute HIV infection is suspected, consider testing for HIV RNA by PCR (viral load). Authorizing ProviderResult TypeResult StatusTrish Sun TRAFFIC CHIEF[facility] BLOOD ORDERABLESFinal ResultPerforming OrganizationAddressty/State/ZIP CodePhone Number [facility] [address] [place] [phone] from Last 3 Months or Most Recently Relevant to Health Maintenance Insurance * Guarantor: Chidi Garcia TypeRelation to PatientDate of BirthPhone Billing AddressPersonal/EsjpftTuig12/10/[address] [id number] * Guarantor: Chidi Garcia TypeRelation to PatientDate of BirthPhone Billing NjzpphqOUCUhup93/[birth year][id number] [address] Care Teams Team MemberRelationshipSpecialtyStart DateEnd Allyssa Robles RN Registered NurseReproductive Endocrinology and Infertility12/25/23
--- OUTSIDE RECORDS SUMMARY | 2025-03-01 08:18 | XMS_ITS | CCD ---
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 Name Role Phone Rachana LYONS Primary Care [...] of OnsetReaction(s) Facility (20 sources)Azithromycin; Translations: [azithromycin]Drug [id number] Unknown (qualifier value), [facility] ([facility] sources)Latex; Translations: [Latex]Drug trrjhwy02-53-7709WtddFwdqnp-[facility] Primary Care (20 sources)nickel; Translations: [Nickel]Drug Zlmtsoe59-34-6855Eivu, Itching [facility] Primary [facility] Medications Current Medications MedicationDrug Class(es)DatesSig (Normalized)Sig (Original)cephalexin 500 mg oral capsule (14 sources)Cephalosporin AntibacterialStart: 09-21-2024 End: 50-09-7608gmhx 1 capsule by mouth in the morningcephalexin (Keflex) 500 MG capsule Take 500 mg by mouth in the morning and 500 mg before bedtime. 12/06/2024 Discontinuedcetirizine hydrochloride 10 mg oral tablet (14 sources)Histamine-1 Receptor AntagonistStart: 10-04-2024 End: 26-54-1202pscj 1 tablet by mouth once dailycetirizine (ZyrTEC [...] propionate 0.0005 mg/mg topical ointment (6 sources)CorticosteroidStart: 55-61-3004fxzvbgnyzr propionate 0.05% top oint 1 bonifacio, Topical, BID, 60 gm, Refill(s) 1, Apply a thin film to affected area. Do not use to face, armpits, groin., [facility]/pharmacy #[id number], 162, cm, 10/02/23 11:23:00 EDT, Height/Length Dosing, 76.7, kg, 10/02/23 11:23:00 EDT, Weight Dosing Start Date: 10/02/23 Status:OrderedStart: 10-62-5534mgsbgarnkb propionate 0.05% top oint 1 bonifacio, Topical, BID, 45 gram, Refill(s) 0, Apply a thin film to affected area. Do not use to face, armpits, groin., [facility], 160, cm, 07/24/21 17:02:00 EDT, Height/Length Dosing, 71.6, kg, 07/24/21 17:02:00 EDT, Weight Dosing Start Date: 02/10/22 Status: OrderedStart: 54-79-0976nukguogmrw propionate 0.05% top oint 1 bonifacio, Topical, BID, 45 gram, Refill(s) 1, [facility], 160, cm, 01/29/21 16:48:00 EDT, Height/Length Dosing, 82.2, kg, 01/29/21 16:48:00 EDT, Weight Dosing Start Date: 01/29/21 Status: Ordered cyclobenzaprine hydrochloride 10 mg oral tablet (11 sources)Muscle RelaxantStart: 10-17-2024 End: 92-78-3090ksgl 0.5 tablet by mouth three times daily as needed for muscle spasmscyclobenzaprine (Flexeril) 10 MG tablet Indications: Acute bilateral low back pain without sciaticaTake 0.5 tablets (5 mg) by mouth 3 (three) times a day as needed for muscle spasms for up to 10 days 30 tablet 2 10/17/2024 12/06/2024 DiscontinuedStart: 18-17-4332thqq 1 tablet by mouth three times daily as needed for muscle spasmscyclobenzaprine 10 mg Tab 10 mg = 1 tab(s), Oral, TID, PRN for spasm, # 30 tab(s), Refills(s) 1, Pharmacy: [facility]/pharmacy #[id number], 162, cm, 02/19/23 7:51:00 EDT, Height/Length Dosing, 68.7, kg, 02/19/23 7:51:00 EDT, Weight Dosing Start Date: 02/19/23 Status: Orderedestradiol 2 mg oral tablet (20 sources)EstrogenStart: 02-24-2024 End: 11-82-0003tpgmtebkj (Estrace) 2 mg tablet Indications: Female infertility Insert 1 tablet (2 mg) into the vagina 2 times a day. 06/06/2024 06/06/2025 ActiveStart: 02-24-2024 End: 01-85-2246munh 3 tablets by mouth once dailyestradiol (Estrace) 2 mg tablet Indications: Female infertility Take 3 tablets (6 mg) by mouth oncedaily. 90 tablet 11 06/19/2024 06/19/2025 Activeethinyl estradiol 0.03 mg / norethindrone acetate 1.5 mg oral tablet (2 sources)EstrogenStart: 79-23-4493tzki 1 tablet by mouth once dailyJunel 1.5/30 oral tablet 1 tab(s), Oral, Daily, 84 tab(s), Refill(s) 6, Therapeutic tx; may refill early, [facility], 160, cm, 09/27/20 16:16:00 EDT, Height/Length Dosing, 80.8, kg, 09/27/20 16:16:00 EDT, Weight Dosing Start Date: 09/27/20 Status: Orderedfamotidine 20 mg oral tablet (15 sources)Histamine-2 Receptor AntagonistStart: 10-04-2024 End: 72-77-6167xwqa 1 tablet by mouth once dailyfamotidine (Pepcid) 20 MG tablet Indications: Gastroesophageal Reflux Disease , Heartburn Take 1 tablet (20 mg) by mouth Daily 30 tablet 11 10/04/2024 12/06/2024 DiscontinuedStart: 01-29-2021 take 1 mg by mouth once daily at bedtimePepcid 40 mg Tab mg tab(s), Oral, Once a day (at bedtime), Refills(s) 0 Start Date: 01/29/21 Status:OrderedFlonase 0.05 mg/inh nasal spray (1 source)Start: 94-35-5257Ehqlzex 0.05 mg/inh nasal spray 50 microgram, Nasal, Daily, Refill(s) 0 Start Date: 09/30/18 Status:OrderedhydrOXYzine pamoate 25 mg oral capsule (12 sources)AntihistamineStart: 10-11-2024 End: 01-78-7841ngqj 1 capsule by mouth every six hourshydrOXYzine pamoate (Vistaril) 25 MG capsule Indications: Pruritus Take 1 capsule (25 mg) by mouth e very 6 (six) hours if needed for itching for up to 10 days 30 capsule 10/11/2024 12/06/2024 DiscontinuedJunel 1.5/30 oral tablet (1 source)Start: 16-35-6683wuoj 1 tablet by mouth once dailyJunel 1.5/30 oral tablet 1 tab(s), Oral, Daily, 84 tab(s), Refill(s) 6, Therapeutic tx; may refill early, [facility], 160, cm, 09/27/20 16:16:00 EDT, Height/Length Dosing, 80.8, kg, 09/27/20 16:16:00 EDT, Weight Dosing Start Date: 09/27/20 Status: Orderedlidocaine 25 mg/ml / prilocaine 25 mg/ml topical cream (16 sources)Antiarrhythmic, Amide Local AnestheticStart: 02-24-2024 End: 45-54-7812jvnecqqhd-prilocaine (Emla) 2.5-2.5 % cream Indications: Female infertility Apply topically once daily. Apply to treatment area 1 hour prior to injection. 30 g 2 05/03/2024 3:33 PM EST 02/24/2024 02/23/2025 ActiveStart: 02-24-2024 End: 78-97-3716lvkdadvua-prilocaine (Emla) 2.5-2.5 % cream Apply topically Daily 02/24/2024 08/08/2024 Discontinuedloratadine 10 mg oral tablet (1 source)Start: 57-87-1171ncex 1 tablet by mouth once dailyloratadine 10 mg Tab 10 mg = 1 tab(s), Oral, Daily, Refills(s) 0 Start Date: 01/29/21 Status: Ordered methylPREDNISolone (14 sources)CorticosteroidStart: 10-04-2024 End: 39-93-0516thtyrgZQALGEZrwwef (Medrol Dospak) 4 MG tablets Indications: Pruritus of in second trimester ([facility]) Day 1: 6 tablets Day 2: 5 tablets Day 3: 4 tablets Day 4: 3 tablets Day 5: 2 tablets Day 6: 1 tablet 21 tablet 10/04/2024 12/06/2024 DiscontinuedStart: 70-71-9282yksqliANYXUXGgztbq (Medrol Dospak) 4 MG tablets Indications: Pruritus of in second trimester ([facility]) Day 1: 6 tablets Day 2: 5 tablets Day 3: 4 tablets Day 4: 3 tablets Day 5: 2 tablets Day 6: 1 tablet 21 tablet 10/04/2024 ActiveStart: 59-06-4231pnujknUINFYSFvbhjt (Medrol Dospak) 4 MG tablets Indications: Pruritus of in second trimester Day 1: 6 tablets Day 2: 5 tablets Day 3: 4 tablets Day 4: 3 tablets Day 5: 2 tablets Day 6: 1 tablet 21 tablet 10/04/2024 Activeorlistat 60 mg oral capsule (1 source)Intestinal Lipase InhibitorStart: 07-24-2021 End: 37-71-8827mifs 1 capsule by mouth three times dailyalli 60 mg oral capsule 60 mg, 1 cap(s), Oral, TID for 30 day(s), 90 cap(s), Refill(s) 5, within 1 hour of each main meal containing fat, [facility] 1986, 160, cm, 07/24/21 17:02:00 EDT, Height/Length Dosing, 71.6, kg, 07/24/21 17:02:00 EDT, Weight Dosing Start Date: 07/24/21 Stop Date: 01/20/22 Status: Orderedphentermine hydrochloride 37.5 mg oral tablet (1 source)Sympathomimetic Amine AnorecticStart: 06-26-2021 End: 10-63-2862hiso 1 tablet by mouth once daily 1 [...] PO) Take 1 each by mouth Daily Gkdeomrnkktvtk30-xncd-mxbqa- 29-1-400 mg combo pack,tablet and cap,DR (14 sources)hhjxxdod58-lrkl-widik-usgib2 29-1-400 mg combo pack,tablet and cap,DR Take by mouth. Activeprogesterone 50 mg/ml injectable solution (20 sources)ProgesteroneStart: 03-29-2024 End: 51-76-7988dvdmqawnrsqr 50 MG/ML injection Inject 75 mg into the shoulder, thigh, or buttocks in the morning. 03/29/2024 03/29/2025 ActiveStart: 02-24-2024 End: 76-05-9384etgacbykwgtc 50 mg/mL injection Indications: Female infertility Draw up and inject 1.5 mL (75 mg) into the muscle at the same time each morning as directed per provider. 150 mL 05/03/2024 3:33 PM EST03/29/2024 03/29/2025 Activetopiramate 50 mg oral tablet (2 sources)Start: 23-18-6546ujfw 1 tablet by mouth once dailyTopamax 50 mg Tab 50 mg = 1 tab(s), Oral, Daily, # 90 tab(s), Refills(s) 3, Pharmacy: [facility]/pharmacy #[id number], 162, cm, 10/02/23 11:23:00 EDT, Height/Length Dosing, 76.7, kg, 10/02/23 11:23:00 EDT, WeightDosing Start Date: 10/02/23 Status: OrderedStart: 08-27-2023 take 2 tablets by mouth once dailyTopamax 25 mg Tab 50 mg = 2 tab(s), Oral, Daily, # 180 tab(s), Refills(s) 0, Pharmacy: [facility]/pharmacy#[id number], 162, cm, 08/27/23 17:49:00 EDT, Height/Length Dosing, 75.4, kg, 08/27/23 17:49:00 EDT, Weight Dosing Start Date: 08/27/23 Status: Orderedtransparent dressings 2 3/8 X 2 3/4 bandage (11 sources)Start: 05-03-2024 End: 10-44-6729sgxeucbmfcc dressings 2 3/8 X 2 3/4 bandage Indications: Female infertility Use as directed to cover lidocaine cream. 90 each 05/03/2024 3:33 PM EST 05/03/2024 08/01/2024 ActiveStart: 02-24-2024 End: 37-63-2357euknxdqkpws dressings 2 3/8 X 2 3/4 bandage Indications: Female infertility Use as directed to cover lidocaine cream. 30 each 3 03/11/2024 12:36 PM EST 02/24/2024 05/24/2024 ActiveStart: 02-24-2024 End: 60-66-8028rrjblrxtaqr dressings 2 3/8 X 2 3/4 bandage Indications: Female infertility Use as directed to cover lidocaine cream. 30 each 3 02/24/2024 05/24/2024 Active Completed/Discontinued Medications MedicationDrug Class(es)DatesSig (Normalized)Sig (Original)cetrorelix 0.25 mg injection (15 sources)Gonadotropin Releasing Hormone AntagonistStart: 02-09-2024 End: 67-02-6904zswbsf 0.25 mg by subcutaneous injection once daily, [...] unt/ml injectable solution (8 sources)GonadotropinStart: 02-09-2024 End: 95-37-5425qzizqcnuh gonadotropin, human (NovareL) 5,000 unit recon soln [...] / norgestimate (20 sources)Progestin, EstrogenStart: 01-22-2024 End: 77-97-8087fcrt 1 tablet by mouth once dailynorgestimate-ethinyl estradioL (Ortho-Cyclen) 0.25-35 mg-mcg tablet Indications: Female infertilityTake 1 tablet by mouth once daily. Take active pills only as directed per provider 28 tablet 2 01/22/2024 03/22/2024 Discontinued (Therapy completed)Start: 01-22-2024 End: 50-95-1278lmqg 1 tablet by mouth once dailynorgestimate-ethinyl estradioL (Ortho-Cyclen) 0.25-35 mg-mcg tablet Indications: Female infertilityTake 1 tablet by mouth once daily. Take active pills only as directed per provider 28 tablet 2 01/22/2024 01/21/2025 Activefollicle stimulating hormone 75 unt / luteinizing hormone 75 unt injection (16 sources)GonadotropinStart: 02-09-2024 End: 10-40-3523lctvyf 75 [IU] by subcutaneous injection once daily in the eveningmenotropins (Menopur) 75 unit recon soln injection Indications: Female infertility Inject 75 Units under the skin once daily in the evening, as directed by provider 9 each 2 03/07/2024 03/22/2024 Discontinued (Therapy completed)1.5 ml follitropin pallavi 600 unt/ml pen injector (16 sources)Start: 03-01-2024 End: 39-16-7164rkwkjd 225 [IU] by subcutaneous injection once daily in the eveningfollitropin pallavi (Gonal-f) 900/1.5 unit/mL pen injector pen injection Indications: Female infertility Inject 225 Units under the skin once daily in the evening, as directed by provider 1 each 2 03/07/2024 03/22/2024 Discontinued (Therapy completed)Start: 02-09-2024 End: 62-43-3090xxawzs 250 [IU] by subcutaneous injection once daily in the eveningfollitropin pallavi (Gonal-f) 900/1.5 unit/mL pen injector pen injection Indications: Female infertility Inject 250 Units under the skin once daily in the evening. Inject under the skin as directed by provider 02/09/2024 03/09/2024 Discontinued (Med List Cleanup)0.5 ml ganirelix acetate 0.5 mg/ml prefilled syringe (7 sources)Gonadotropin Releasing Hormone AntagonistStart: 03-07-2024 End: 80-36-3672owycti 0.5 mL by subcutaneous injection once daily in the morning ganirelix (Orgalutran) 250 mcg/0.5 mL syringe injection Indications: Female infertility Inject 0.5 mL (250 mcg) under the skin once daily in the morning, as directed per provider. 4 each 2 4105/22/2023 Discontinued (Therapy completed)ibuprofen 600 mg oral tablet (5 sources)Nonsteroidal Anti-inflammatory DrugStart: 36-88-9545lujs 4-7 tablets by mouth every eight hours as neededibuprofen 600 mg Tab 600 mg = 1 tab(s), Oral, q8hr, PRN Pain 4-7, # 90 tab(s), Refills(s) 1, Pharmacy: [facility]/pharmacy #[id number], 162, cm, 02/19/23 7:51:00 EDT, Height/Length Dosing, 68.7, kg, 02/19/23 7:51:00 EDT, Weight Dosing Start Date: 02/19/23 Status: Orderedletrozole 2.5 mg oral tablet (2 sources)Aromatase InhibitorStart: 90-31-3818ublbzjsnk 2.5 mg Tab 15 EA, 0 Refill(s), TAKE 3 TABLETS (7.5 MG TOTAL) BY MOUTH DAILY FOR 5 DAYS. TAKE WITH OR WITHOUT FOOD., Refills(s) 0 Start Date: 02/19/23 Status: Orderedleuprolide acetate 5 mg/ml injectable solution (16 sources)Gonadotropin Releasing Hormone Receptor AgonistStart: 03-07-2024 End: 46-02-8496sgfihuqixd (Lupron) 1 mg/0.2 mL injection Indications: Female infertility Using an insulin syringe,draw up 80 units and inject under the skin as a one time dose, as directed per provider for trigger. 1 kit 03/11/2024 12:51 PM EST 03/07/2024 03/22/2024 Discontinued (Therapy completed)Start: 02-09-2024 End: 36-87-6440sklrfr 0.8 mL by subcutaneous injection onceleuprolide (Lupron) [...] hydrochloride 500 mg oral tablet (5 sources)BiguanideStart: 75-21-5877PttGETJUH (Eqv-Glucophage XR) 500 mg oral tablet, extended release 30 EA, 0 Refill(s), TAKE 1 TABLET BY MOUTH EVERY DAY FOR 30 DAYS, Refills(s) 0 Start Date: 02/19/23 Status: Ordered End: 15-41-0268xvhm 1 tablet by mouth every twenty-four hours at mealtime metFORMIN XR (Glucophage-XR) 500 MG 24 hr tablet Take 500 mg by mouth in the evening. Take with meals. 01/14/2024 Discontinuedpermethrin 50 mg/ml topical cream (3 sources)PyrethroidStart: 10-11-2024 End: 19-28-2255qkgjprnvna (Elimite) 5 % cream Indications: Pruritus Apply topically 1 (one) time for 1 dose 60 g 10/11/2024 10/11/2024 Expiredsyringe, disposable, (BD Safety-Cole with Luer-Cole) 3 mL syringe (1 source)Start: 03-01-2024 End: 96-96-6197ibhnnwh, disposable, (BD Safety-Cole with Luer-Cole) 3 mL syringe Indications: Female infertility Useas directed to mix and administer Menopur 30 each 3 03/01/2024 03/09/2024 Discontinued (Med List Cleanup) Problems Active Problems Problem ClassificationProblemDateDocumented DateEpisodic/Chronic Administrative/social admission (20 sources)Patient encounter status; Translations: [Persons encountering health services in other specified circumstances]Onset: 90-93-3288PyljcaimIhxvtggl reactions (1 source)Eczema; Translations: [Dermatitis, unspecified]Onset: 10-02-2023 EpisodicAnxiety disorders (6 sources)Kiklxoc37-27-4586WdjkbypPdwcwhury infection; unspecified site (2 sources)Streptococcus agalactiae infection; Translations: [Streptococcal infection, unspecified site]11-19-2199DoqwfwrhGjshpzqwsk disorders (7 sources)Gastroesophageal reflux disease; Translations: [Gastroesophageal reflux disease without esophagitis]Onset: 669670-86-7165AvjgjagCvcbbi infertility (20 sources)Female infertility; Translations: [Female infertility, unspecified] Onset: 986490-12-0093DjslenyKikyowfacljrz symptoms and ill-defined conditions (4 sources)Leukocytes in urine; Translations: [Other abnormal findings in urine] 14-64-0654RscsxjouFafxzmxv; including migraine (15 sources)Headache; Translations: [Headache, unspecified]Onset: 02-19-2023 EpisodicJoint disorders and dislocations; trauma-related (6 sources)Tear of medial meniscus of tmzn92-13-4133KchyxhkmWojlcjr and fatigue (7 sources)Fatigue; Translations: [Other fatigue]Onset: EpisodicMenstrual disorders (8 sources)Irregular menstruation, unspecified; Translations: [Menorrhagia] Onset: 90-67-2844PhvpbhhRvuhz complications of (4 sources)Conceived by in vitro fertilization; Translations: [Supervision of resulting from assisted reproductive technology, third trimester] 54-91-9095BnnjmfvpOxfao endocrine disorders (1 source)Polycystic ovarian syndrome; Translations: [POLYCYSTIC OVARIAN SYNDROME]Onset: 70-54-1624YhuxvelQyuyi inflammatory condition of skin (2 sources)Pruritus, unspecified; Translations: [Unspecified pruritic disorder] 72-08-1538NqnvmzxkWvfdc injuries and conditions due to external causes (6 sources)Injury of dental rvtvxapuyg63-10-4739FtbssdgfAjvzs nutritional; endocrine; and metabolic disorders (6 sources)Body mass index 30+ - hmypnjr82-53-2010KhbpfeqSkrwy nutritional; endocrine; and metabolic disorders (7 sources)Overweight in adulthood with body mass index of 25 or more but less than 30; Translations: [Body mass index (BMI) 27.0-27.9, adult]Onset: 07-24-2021 EpisodicOther nutritional; endocrine; and metabolic disorders (7 sources)Overweight; Translations: [Overweight]Onset: 03-31-4063BuxknkccIxsdy nutritional; endocrine; and metabolic disorders (6 sources)Weight xzco68-84-2808WcundkkxWqcfc and delivery including normal (20 sources); Translations: [Encounter for supervision of normal , unspecified, unspecified trimester]Onset: EpisodicOther skin disorders (6 sources)Inflammatory uctlsznpao05-23-8903BxmqdyiwExsei skin disorders (1 source)Non-scarring alopecia; Translations: [Nonscarring hair loss, unspecified]Onset: 71-26-6626BxmakmlaHeadwzit codes; unclassified (6 sources)FH: Polycystic rhdjyc31-39-6976JvprfvfdVmclgnbf codes; unclassified (1 source)Gestation period, 9 weeks; Translations: [9 weeks gestation of ]59-98-1639ScvbcprnLshqdkme codes; unclassified (2 sources)Gestation period, 10 weeks; Translations: [10 weeks gestation of ]45-54-5130NljerxmdIlcewmcg codes; unclassified (2 sources)Gestation period, 14 weeks; Translations: [14 weeks gestation of ]42-90-1128IfrxzhwmCfnkntvy codes; unclassified (2 sources)Gestation period, 19 weeks; Translations: [19 weeks gestation of ]95-72-4764XijbgmnjLeccqmti codes; unclassified (2 sources)Gestation period, 20 weeks; Translations: [20 weeks gestation of ]11-00-9205LnfcnqbkHcvztxpa codes; unclassified (2 sources)Gestation period, 26 weeks; Translations: [26 weeks gestation of ]50-29-1539IyhjvceeNhgicmpx codes; unclassified (2 sources)Gestation period, 27 weeks; Translations: [27 weeks gestation of ]75-36-4219GmwhktrrHmyaiajk codes; unclassified (2 sources)Gestation period, 29 weeks; Translations: [29 weeks gestation of ]19-70-0946MkopenfoQsflpuds codes; unclassified (2 sources)Gestation period, 31 weeks; Translations: [31 weeks gestation of ]95-63-2303XjlairxxTtxmzlzi codes; unclassified (2 sources)Gestation period, 33 weeks; Translations: [33 weeks gestation of ]26-46-4460HxgsnqysFzwapmcu codes; unclassified (2 sources)Gestation period, 35 weeks; Translations: [35 weeks gestation of ]06-94-4766QklotvjmJipeipph codes; unclassified (2 sources)Gestation period, 36 weeks; Translations: [36 weeks gestation of ]87-50-1072HqswrktpGsnbrpvc codes; unclassified (2 sources)Gestation period, 37 weeks; Translations: [37 weeks gestation of ]78-92-2412JpuewqymSjucschuo and history of mental health and substance abuse codes (1 source)H/O: psychiatric disorder; Translations: [Personal history of other mental and behavioral disorders]Onset: 62-19-9851XfxadodiSgtajubwipw; intervertebral disc disorders; other back problems (9 sources)Neck pain; Translations: [Cervicalgia]Onset: 91-85-7935Yodhakvw Sprains and strains (6 sources)Rupture of anterior cruciate trrtrysr77-06-4157HsylexweKfbcdnfgiwmd (20 sources)Patient encounter ilotfs98-97-6798Yqjurngigdjm (2 sources)IVF ConsultationOnset: 23-64-6280Tadue infection (6 sources)Verruca -68-9302Xvxcdacq Past or Other Problems Problem ClassificationProblemDateDocumented DateEpisodic/ChronicContraceptive and procreative management (8 sources)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; Translations: [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]Onset: 2023 62-11-7784GjhaxsheFuagpwupxudzd and screening for infectious disease (7 sources)Encounter for screening for human papillomavirus (HPV); Translations: [Exposure to sexually transmissible disorder]Onset: 861488-66-7922Yrzttjhn Nausea and vomiting (20 sources)Postoperative nausea and vomiting; Translations: [Nausea with vomiting, unspecified]Onset: 221924-58-9528UuexxhjjYdfhk complications of (2 sources) with inconclusive viability, not applicable or unspecified; Translations: [ with inconclusive viability, not applicable or unspecified]Onset: 59-77-2666VjlmxpjbEasdl female genital disorders (4 sources)Polyp of corpus uteri; Translations: [Polyp of corpus uteri]Onset: 355612-44-8285OqiuhhdrVoiqc screening for suspected conditions (not mental disorders or infectious disease) (6 sources)Encounter for screening for malignant neoplasm of cervix; Translations: [Encounter for other screening for genetic and chromosomal anomalies]Onset: 05-82-9031OyvfbxrtKsadafjenhsf (1 source)over heated( Confirmed ) 698-92-9240Momuogz on above:2 years ago when she would becomeoverheated shewould pass out and afterwards have a really bad headache. dr el give her medications for migraines, but pt wasnt had episode since.Unclassified (5 sources)over heated 733-71-4733Bahuhyk on above:2 years ago when she would becomeoverheated shewould pass out and afterwards have a really bad headache. dr el give her medications for migraines, but pt wasnt had episode since. NEGATED: Highlighted row has been ruled out!Unclassified (20 sources)No known active -[id number] Results Test NameValueInterpretationReference RangeFacilityUrinalysis macro (dipstick) panel (U)on 02-13-7596Fwgqqsswx, UANegativeNegative - 4(70) +++ mg/dLNOMS HealthcareBlood, UANegativeNegative [...] mg/dLNOMS HealthcareNOMS HealthcareUS OB BPP W NON-STRESSon 20-61[place]40[place] [address] Ultrasound Report Signed Patient: SYDNEY ROMERO MR#: [id number] : 1995 Acct:[id number] Age/Sex: 29 / F ADM Date: 02/07/25 Loc: [facility] 254-[address]: Layo Courtney D.O. Ordering Physician: Layo Courtney D.O. Date of Service: 02/07/25 Procedure(s): US OB BPP w non-stress Accession Number(s): [id number] cc: Layo Courtney D.O.; Physician,Non-Staff [place] [address] Patient Name: SYDNEY ROMERO MRN: [facility]:[id number] date: 1995 Sex: F Assigned Patient Location: [facility] Current Patient Location: [facility] Accession/Order Number: [id number] Exam Date: 02/07/2025 14:45 Report Date: 02/07/2025 16:05 At the request of: LAYO COURTNEY DO Procedure: US OB BPP w non-stress Ultrasound biophysical profile INDICATION: IVF FINDINGS: The pellet mill operator reports a BPP of 8 out of 8 LONNY is normal at 10.6 cm. heart rate 147. Heterogeneous appearance of the placenta hypoechoic focus measuring 2.4 x 1.9 x 1.6 cm in size. US/US OB BPP w non-stress IMPRESSION: BPP 8 out of 8. Impression dictated by: Bernabe Romero M.D. 02/07/2025 4:05 PM Dictation Location: [place] [address] Electronically authenticated by: [id number] Y Date: 02/07/2025 16:05 Dictated By: Bernabe Romero M.D. Signed By: 02/07/251606 DD/ 04 TD/TT: Bounty Trapper:ILENEadiologarthur, Radiologist, - 02/07/2025 [place] [address] Ultrasound Report Signed Patient: SYDNEY ROMERO MR#: [id number] : 1995 Acct:[id number] Age/Sex: 29 / F ADM Date: 02/07/25 Loc: [facility] 254-[address]: Layo Courtney D.O. Ordering Physician: Layo Courtney D.O. Date of Service: 02/07/25 Procedure(s): US OB BPP w non-stress Accession Number(s): [id number] cc: Layo Courtney D.O.; Physician,Non-Staff [place] [address] Patient Name: SYDNEY ROMERO MRN: [facility]:[id number] date: 1995 Sex: F Assigned Patient Location: [facility] Current Patient Location: [facility] Accession/Order Number: [id number] Exam Date: 02/07/2025 14:45 Report Date: 02/07/2025 16:05 At the request of: LAYO COURTNEY DO Procedure: US OB BPP w non-stress Ultrasound biophysical profile INDICATION: IVF FINDINGS: The pellet mill operator reports a BPP of 8 out of 8 LONNY is normal at 10.6 cm. heart rate 147. Heterogeneous appearance of the placenta hypoechoic focus measuring 2.4 x 1.9 x 1.6 cm in size. US/US OB BPP w non-stress IMPRESSION: BPP 8 out of 8. Impression dictated by: Bernabe Romero M.D. 02/07/2025 4:05 PM Dictation Location: [place] [address] Electronically authenticated by: [id number] Y Date: 02/07/2025 16:05 Dictated By: Bernabe Romero M.D. Signed By: 02/07/25 160 DD/ 04 TD/TT: Bounty Trapper: [facility] ServicesRadiology Study observation (narrative)[facility], PEABODYKenisha Dunlap Memorial HospitalUS OB BPP W NON-STRESSOrdered By: Radiologist Radiology on 42-81-7927DWJMSaint Francis Hospital & Health Services Work Phone: Urinalysis macro (dipstick) panel (U)on [...] HealthcareNo Panel InformationOrdered By: Radiologist Radiology on 82-35-3410MJTLSaint Francis Hospital & Health Services Work Phone: No Panel Informationon 57-77-5398Jnitknmbw Study observation (narrative)[facility] ServicesUS OB BPP W NON-STRESSon 02-01-2025 [place] [address] Ultrasound Report Signed Patient: SYDNEY ROMERO MR#: [id number] : 1995 Acct:[id number] Age/Sex: 29 / F ADM Date: 01/31/25 Loc: US Attending Dr: Layo Courtney D.O. Ordering Physician: Layo Courtney D.O. Date of Service: 01/31/25 Procedure(s): US OB BPP w non-stress Accession Number(s): [id number] cc: Layo Courtney D.O.; Physician,Non-Staff Steven [place] [id number] Patient Name: SYDNEY ROMERO MRN: [facility]:[id number] date: 1995 Sex: F Assigned Patient Location: Current Patient Location: LAB Accession/Order Number: [id number] Exam Date: 01/31/2025 15:22 Report Date: 02/01/2025 [...] Toledo M.D. 02/01/2025 9:21 AM Dictation Location: [place] [address] Electronically authenticated by: [id number] Y Date: 02/01/2025 09:21 Dictated By: Mariela Toledo M.D. Signed By: 02/01/25923 DD/ 0 TD/TT: Bounty Trapper:TBHRadiology, Radiologist, MD - 02/01/2025 [place] [address] Ultrasound Report Signed Patient: SYDNEY ROMERO MR#: [id number] : 1995 Acct:[id number] Age/Sex: 29 / F ADM Date: 01/31/25 Loc: US Attending Dr: Layo Courtney D.O. Ordering Physician: Layo Courtney D.O. Date of Service: 01/31/25 Procedure(s): US OB BPP w non-stress Accession Number(s): [id number] cc: Layo Courtney D.O.; Physician,Non-Staff Steven The [place] [id number] Patient Name: SYDNEY ROMERO MRN: [facility]:[id number] date: 1995 Sex: F Assigned Patient Location: US Current Patient Location: LAB Accession/Order Number: [id number] Exam Date: 01/31/2025 15:22 Report Date: 02/01/2025 [...] Toledo M.D. 02/01/2025 9:21 AM Dictation Location: [place] [address] Electronically authenticated by: [id number] Y Date: 02/01/2025 09:21 Dictated By: Mariela Toledo M.D. Signed By: 02/01/25923 DD/ 0 TD/TT: Bounty Trapper: SHIRA TIPTON GROWTHon [id number] [address] Ultrasound Report Signed Patient: SYDNEY ROMERO MR#: [id number] : 1995 Acct:[id number] Age/Sex: 29 / F ADM Date: 01/31/25 Loc: US Attending Dr: Layo Courtney D.O. Ordering Physician: Layo Courtney D.O. Date of Service: 01/31/25 Procedure(s): US OB growth Accession Number(s): [id number] cc: Layo Courtney D.O.; Physician,Non-Staff Steven [address] [address] Patient Name: SYDNEY ROMERO MRN: [facility]:[id number] date: 1995 Sex: F Assigned Patient Location: [facility] Current Patient Location: LAB Accession/Order Number: [id number] Exam Date: 01/31/2025 15:22 Report Date: 02/01/2025 [...] Toledo M.D. 02/01/2025 9:21 AM Dictation Location: [place] [address] Electronically authenticated by: [id number] Y Date: 02/01/2025 09:21 Dictated By: Mariela Toledo M.D. Signed By: 02/01/25923 DD/ 0 TD/TT: Bounty Trapper:ILENEadiologarthur, Radiologist, - 02/01/2025 [place] [address] Ultrasound Report Signed Patient: SYDNEY ROMERO MR#: [id number] : 1995 Acct:[id number] Age/Sex: 29 / F ADM Date: 01/31/25 Loc: US Attending Dr: Layo Courtney D.O. Ordering Physician: Layo Courtney D.O. Date of Service: 01/31/25 Procedure(s): US OB growth Accession Number(s): [id number] cc: Layo Courtney D.O.; Physician,Non-Staff Steven The [place] [id number] Patient Name: SYDNEY ROMERO MRN: [id number]:[id number] date: 1995 Sex: F Assigned Patient Location: [facility] Current Patient Location: LAB Accession/Order Number: [id number] Exam Date: 01/31/2025 15:22 Report Date: 02/01/2025 [...] Toledo M.D. 02/01/2025 9:21 AM Dictation Location: [place] [address] Electronically authenticated by: [id number] Y Date: 02/01/2025 09:21 Dictated By: Mariela Toledo M.D. Signed By: 02/01/25923 DD/ 0 TD/TT: Bounty Trapper: SHIRA HealthcareUrinalysis macro (dipstick) panel (U)on 33-22-9047Rmkywlrau, UA NegativeNegative - 4(70) +++ mg/dLNOMS HealthcareBlood, [...] mg/dLNOMS HealthcareNOMS HealthcareUS OB BPP W NON-STRESSon 62-65-3617Bdl[place] [address] Ultrasound Report Signed Patient: SYDNEY ROMERO MR#: [id number] : 1995 Acct:[id number] Age/Sex: 29 / F ADM Date: 01/25/25 Loc: US Attending Dr: Layo Courtney D.O. Ordering Physician: Layo Courtney D.O. 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 heart rate 134. Heterogeneous appearance of the placenta hypoechoic focus measuring 1.3 x 2.8 x 2.0 cm in size. US/US OB BPP w non-stress IMPRESSION: BPP 8 out of 8. Impression dictated by: Bernabe Romero M.D. 01/25/2025 6:24 PM Dictation Location: [place] [address] Electronically authenticated by: [id number] Y Date: 01/25/2025 18:24 Dictated By: Bernabe Romero M.D. Signed By: 01/25/251826 DD/ 23 TD/TT: Bounty Trapper:TBHRadiology, Radiologist, - 01/25/2025 [place] [address] Ultrasound Report Signed Patient: SYDNEY ROMERO MR#: [id number] : 1995 Acct:[id number] Age/Sex: 29 / F ADM Date: 01/25/25 Loc: US Attending Dr: Layo Courtney D.O. Ordering Physician: Layo Courtney D.O. 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 heart rate 134. Heterogeneous appearance of the placenta hypoechoic focus measuring 1.3 x 2.8 x 2.0 cm in size. US/US OB BPP w non-stress IMPRESSION: BPP 8 out of 8. Impression dictated by: Bernabe Romero M.D. 01/25/2025 6:24 PM Dictation Location: [place] [address] Electronically authenticated by: [id number] Y Date: 01/25/2025 18:24 Dictated By: Bernabe Romero M.D. Signed By: 01/25/251826 DD/ 23 TD/TT: Bounty Trapper: SHIRA HealthcareRadiology Study observation (narrative)NOMS HealthcareUS OB BPP W NON-STRESSOrdered By: Radiologist Radiology on 47-28-2821MRZT Healthcare Work Phone: US OB BPP W NON-STRESSon 63-31-4788[address] [address] Ultrasound Report Signed Patient: SYDNEY ROMERO MR#: [id number] : 1995 Acct:[id number] Age/Sex: 29 / F ADM Date: 01/24/25 Loc: US Attending Dr: Layo Courtney D.O. Ordering Physician: Layo Courtney D.O. Date of Service: 01/24/25 Procedure(s): US OB BPP w non-stress Accession Number(s): [id number] cc: Layo Courtney D.O.; Physician,Non-Staff M.Nadir The [place] [id number] Patient Name: SYDNEY ROMERO MRN: [id number]:[id number] date: 1995 Sex: F Assigned Patient Location: [facility] Current Patient Location: Accession/Order Number: [id number] Exam Date: 01/24/2025 16:10 Report Date: 01/24/2025 19:55 At the request of: LAYO COURTNEY DO Procedure: US OB BPP w non-stress Biophysical profile. Reason for exam: resulting in vitro fertilization COMPARISON: 01/17/2025 TECHNIQUE: Transabdominal imaging of the gravid uterus was obtained. 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 LONNY is normal at 11.9 cm. heart rate 148 bpm. US/US OB BPP w non-stress IMPRESSION: BPP 6out of 8. Correlation with NST is suggested. Impression dictated by: Juan Salinas Jr., D.O. 01/24/2025 7:55 PM Dictation Location: [place] [address] Electronically authenticated by: [id number] Y Date: 01/24/2025 19:55 Dictated By: Juan Salinas M.D. Signed By: 01/24/251957 DD/ 54 TD/TT: Bounty Trapper:GALINAHRadiology, Radiologist, - 01/24/2025 [place] [address] Ultrasound Report Signed Patient: SYDNEY ROMERO MR#: [id number] : 1995 Acct:[id number] Age/Sex: 29 / F ADM Date: 01/24/25 Loc: US Attending Dr: Layo Courtney D.O. Ordering Physician: Layo Courtney D.O. Date of Service: 01/24/25 Procedure(s): US OB BPP w non-stress Accession Number(s): [id number] cc: Layo Courtney D.O.; Physician,Non-Staff Steven [place] [phone] Patient Name: SYDNEY ROMERO MRN: [id number]:[id number] date: 1995 Sex: F Assigned Patient Location: [facility] Current Patient Location: Accession/Order Number: [id number] Exam Date: 01/24/2025 16:10 Report Date: 01/24/2025 19:55 At the request of: LAYO COURTNEY DO Procedure: US OB BPP w non-stress Biophysical profile. Reason for exam: resulting in vitro fertilization COMPARISON: 01/17/2025 TECHNIQUE: Transabdominal imaging of the gravid uterus was obtained. 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 LONNY is normal at 11.9 cm. heart rate 148 bpm. US/US OB BPP w non-stress IMPRESSION: BPP 6out of 8. Correlation with NST is suggested. Impression dictated by: Juan Salinas Jr., D.O. 01/24/2025 7:55 PM Dictation Location: [facility]list Electronically authenticated by: [id number] Y Date: 01/24/2025 19:55 Dictated By: Juan Salinas M.D. Signed By: 01/24/251957 DD/ 54 TD/TT: Bounty Trapper: SHIRA HealthcareRadiology Study observation (narrative)NOM HealthcareUS OB BPP W NON-STRESSOrdered By: Radiologist Radiology on 08-57-4785DHHD Tagasauris Work Phone: US OB BPP W NON-STRESSon [phone] [address] Ultrasound Report Signed Patient: SYDNEY ROMERO MR#: [id number] : 1995 Acct:[id number] Age/Sex: 29 / F ADM Date: 01/17/25 Loc: US Attending Dr: Layo Courtney D.O. Ordering Physician: Layo Courtney D.O. Date of Service: 01/17/25 Procedure(s): US OB BPP w non-stress Accession Number(s): [id number] cc: Layo Courtney D.O.; Physician,Non-Staff Steven [place] [address] Patient Name: SYDNEY ROMERO MRN: [id number]:[id number] date: 1995 Sex: F Assigned Patient Location: [facility] Current Patient Location: Accession/Order Number: [id number] Exam Date: 01/17/2025 16:08 Report Date: 01/18/2025 [...] Toledo M.D. 01/18/2025 9:02 AM Dictation Location: [place] [address] Electronically authenticated by: [id number] Y Date: 01/18/2025 09:02 Dictated By: Mariela Toledo M.D. Signed By: 01/18/25904 DD/ 1 TD/TT: Bounty Trapper:TBHRadiology, Radiologist, MD - 01/18/2025 [place] [address] Ultrasound Report Signed Patient: SYDNEY ROMERO MR#: [id number] : 1995 Acct:[id number] Age/Sex: 29 / F ADM Date: 01/17/25 Loc: US Attending Dr: Layo Courtney D.O. Ordering Physician: Layo Courtney D.O. Date of Service: 01/17/25 Procedure(s): US OB BPP w non-stress Accession Number(s): [id number] cc: Layo Courtney D.O.; Physician,Non-Staff Steven The [address] [address] Patient Name: SYDNEY ROMERO MRN: [id number] date: 1995 Sex: F Assigned Patient Location: [facility] Current Patient Location: Accession/Order Number: [id number] Exam Date: 01/17/2025 16:08 Report Date: 01/18/2025 [...] Toledo M.D. 01/18/2025 9:02 AM Dictation Location: [place] [address] Electronically authenticated by: [id number] Y Date: 01/18/2025 09:02 Dictated By: Mariela Toledo M.D. Signed By: 01/18/25904 DD/ 1 TD/TT: Bounty Trapper: SHIRA HealthcareRadiology Study observation (narrative)NOMS HealthcareUS OB BPP W NON-STRESSOrdered By: Radiologist Radiology on 08-10-5634JWDU Healthcare Work Phone: Urinalysis macro (dipstick) panel (U)on 01-16-2025 Bilirubin, UANegativeNegative - 4(70) +++ mg/dLNOMS HealthcareBlood, UANegative Negative - 50 Jose/mcLNOMS HealthcareClarity, UAClearNOMS HealthcareColor, UA YellowNOMS HealthcareGlucose, UANegativeNegative - 2000(110) ++++ mg/dLNOMS HealthcareInterpretation and review of laboratory resultsAbnormalNOOR Healthcare Ketones, UANegativeNegative - 160(16) ++++ mg/dLNOOR HealthcareLeukocytes, UA PositiveNegative - 500+++ Onel/mcLNOOR HealthcareNitrite, UANegativeNegative - PositiveNOMS HealthcarepH, UA65 - 9NOMS HealthcareProtein, UAPositiveNegative - 2000(20) ++++ mg/dLNOMS HealthcareSpec Grav, UA1.031 - 1.03NOMS Healthcare Urobilinogen, UA1.00.2 - 12 mg/dLNOMS HealthcareNOMS HealthcareUS OB BPP W NON-STRESSon 13-96-3682W[place]jL[place] [address] Ultrasound Report Signed Patient: SYDNEY ROMERO MR#: [id number] : 1995 Acct:[id number] Age/Sex: 29 / F ADM Date: 01/10/25 Loc: US Attending Dr: Layo Courtney D.O. Ordering Physician: Layo Courtney D.O. Date of Service: 01/10/25 Procedure(s): US OB BPP w non-stress Accession Number(s): [id number] cc: Layo Courtney D.O.; Physician,Non-Staff M.Nadir The [address] [address] Patient Name: SYDNEY ROMERO MRN: [facility]:[id number] date: 1995 Sex: F Assigned Patient Location: US Current Patient Location: Accession/Order Number: [id number] Exam Date: 01/10/2025 16:03 Report Date: 01/10/2025 [...] Romero M.D. 01/10/2025 9:07 PM Dictation Location: [place] [address] Electronically authenticated by: [id number] Y Date: 01/10/2025 21:07 Dictated By: Bernabe Romero M.D. Signed By: 01/10/252109 DD/ 06 TD/TT: Bounty Trapper:TBHRadiology, Radiologist, MD - 01/10/2025 [place] [address] Ultrasound Report Signed Patient: SYDNEY ROMERO MR#: [id number] : 1995 Acct:[id number] Age/Sex: 29 / F ADM Date: 01/10/25 Loc: US Attending Dr: Layo Courtney D.O. Ordering Physician: Layo Courtney D.O. Date of Service: 01/10/25 Procedure(s): US OB BPP w non-stress Accession Number(s): [id number] cc: Layo Courtney D.O.; Physician,Non-Staff Steven The [place] [address] Patient Name: SYDNEY ROMERO MRN: [facility]:[id number] date: 1995 Sex: F Assigned Patient Location: US Current Patient Location: Accession/Order Number: [id number] Exam Date: 01/10/2025 16:03 Report Date: 01/10/2025 [...] Romero M.D. 01/10/2025 9:07 PM Dictation Location: [place] [address] Electronically authenticated by: [id number] Y Date: 01/10/2025 21:07 Dictated By: Bernabe Romero M.D. Signed By: 01/10/252109 DD/ 06 TD/TT: Bounty Trapper: [facility] HealthcareRadiology Study observation (narrative)NOM HealthcareUS OB BPP W NON-STRESSOrdered By: Radiologist Radiology on 90-37-9093NRZQ Healthcare Work Phone: Urinalysis macro (dipstick) panel (U)on 01-03-2025 Bilirubin, UANegativeNegative - 4(70) +++ mg/dLNOMS HealthcareBlood, UANegative Negative - 50 Jose/mcLNOMS HealthcareClarity, UAClearNOMS HealthcareColor, UA YellowNOMS HealthcareGlucose, UATraceNegative - 2000(110) ++++ mg/dLNOOR HealthcareInterpretation and review of laboratory resultsAbnormalNOOR Healthcare Ketones, UANegativeNegative - 160(16) ++++ mg/dLNOMS HealthcareLeukocytes, UA PositiveNegative - 500+++ Onel/mcLNOMS HealthcareNitrite, UANegativeNegative - PositiveNOMS HealthcarepH, UA85 - 9NOMS HealthcareProtein, UANegativeNegative - 2000(20) ++++ mg/dLNOMS HealthcareSpec Grav, UA1.0151 - 1.03NOMS Healthcare Urobilinogen, UA1.00.2 - 12 mg/dLNOMS HealthcareNOMS HealthcareUS OB FOLLOW UP TRANSABDOMINAL APPROACHon 96-99-7790DR OB FOLLOW UP TRANSABDOMINAL APPROACHEXAM: US OB [...] II, MD, PHD at 22-Dec-2024 08:03:51 AM [facility] TeleradiologyNormalNot AvailableComment on above:Order Comment: US OB SCAN FOR GROWTH Estimated Date of Delivery: 03/01/25 Gestational Age as of 12/06/2024: 43g2cBaokcqcxyk macro (dipstick) panel (U)on 28-78-9351Kojqetkkv, UANegativeNegative - 4(70) +++ mg/dLNOMS HealthcareBlood, UAPositiveNegative [...] 12 mg/dLNOMS HealthcareNOMS HealthcareGLUCOSE TOLERANCE 3 HOURon 95-35-1820MESYMQQ TOLERANCE 3 HOURmg/dLNOMS HealthcareComment on above:GLU FAST 90 (<95) Col: 12/06/24 1126 GLU 1HR 143 (<180) Col: 12/06/24 1235 GLU 2HR 132 (<155) Col: 12/06/24 1327 GLU 3HR 81 (<140) Col: 12/06/24 1432 CLINISYNCNOOR HealthcareUrinalysis macro (dipstick) panel (U)on 12-06-2024 Bilirubin, UANegativeNegative - 4(70) +++ mg/dLNOOR HealthcareBlood, UANegative Negative - 50 Jose/mcLNOOR HealthcareClarity, UAClearNOMS HealthcareColor, UA YellowNOMS HealthcareGlucose, UANegativeNegative - 2000(110) ++++ mg/dLNOOR HealthcareInterpretation and review of laboratory resultsAbnormalNOOR Healthcare Ketones, UANegativeNegative - 160(16) ++++ mg/dLNOOR HealthcareLeukocytes, UA3+ Negative - 500+++ Onel/mcLNOOR HealthcareNitrite, UANegativeNegative - Positive NOMS HealthcarepH, UA85 - 9NOMS HealthcareProtein, UANegativeNegative - 2000(20) ++++ mg/dLNOMS HealthcareSpec Grav, UA1.0151 - 1.03NOMS HealthcareUrobilinogen, UA1.00.2 - 12 mg/dLNOMS HealthcareNOMS HealthcareALL CBC WITH AUTO DIFFon 25-13-7170LMPHLQXEE ABSOLUTE YEZH2IVML HealthcareBasophils/100 WBC (Bld)0.3 %0.2 - 2.0 %NOMS HealthcareEosinophils/100 WBC (Bld)1.1 %0.9 - 7.0 %[facility] Erythrocyte distribution width (RBC) [Ratio]12.4 %11.0 - 15.0 %[facility] Healthcare Hematocrit (Bld) [Volume fraction]38.9 %36.0 - 48.0 %[facility] ServicesHemoglobin (Bld) [Mass/Vol]13.6 g/dL12.0 - 16.0 g/dLNOEastern Missouri State HospitalIMMATURE GRANULOCYTES ABS AUTO0.13HighNOEastern Missouri State HospitalImmature granulocytes/100 WBC (Bld)1.4 %High0.0 - 0.5 %[facility] ServicesInterpretation and review of laboratory resultsAbnormalSaint [facility] & Health ServicesLYMPHOCYTES ABSOLUTE AUTO1.7NOEastern Missouri State HospitalLymphocytes/100 WBC (Bld) 18.9 %Low20.5 - 60.0 %CoxHealthH (RBC) [Entitic mass]31.5 pg26.7 - 34.0 pgCoxHealthHC (RBC) [Mass/Vol]35 g/dL29.9 - 35.2 g/dLCoxHealthV (RBC) [Entitic vol]90 fL81.0 - 99.0 fLSaint Francis Hospital & Health ServicesMONOCYTES ABSOLUTE AUTO0.4 [facility] ServicesMonocytes/100 WBC (Bld)4.6 %1.7 - 12.0 %[facility] NEUTROPHILS ABSOLUTE AUTO6.8HighSaint Francis Hospital & Health ServicesNeutrophils/100 WBC (Bld)73.7 % 43.0 - 75.0 %[facility] Health ServicesPlatelet mean volume (Bld) [Entitic vol]11.3 fL9.5 - 13.5 fLSaint Francis Hospital & Health ServicesTB EO #0.1NOMS [facility] HospitalTB LCW588ChvGTKUSac-[facility] RBC4.32NOSac-[facility] WBC9.2NOMS HealthcareCLINISYNCNBothwell Regional Health Center Urinalysis macro (dipstick) panel (U)on 94-59-0928Hsgcpqqop, UANegativeNegative - 4(70) +++ mg/dLNOOR HealthcareBlood, UANegativeNegative - 50 Jose/mcLNOOR HealthcareClarity, UAClearNOOR HealthcareColor, UAYellowNOOR HealthcareGlucose, UANegativeNegative - 2000(110) ++++ mg/dLMCKAY-DEE HOSPITAL CENTER HealthcareInterpretation and review of laboratory resultsNormalNOOR HealthcareKetones, UANegativeNegative - 160(16) ++++ mg/dLMCKAY-DEE HOSPITAL CENTER HealthcareLeukocytes, UANegativeNegative - 500+++ Onel/mcL NOM HealthcareNitrite, [...] mg/dLNOMS HealthcareNOMS HealthcareALL CBC WITH AUTO DIFFon 79-11-4149DZQTZUQSM ABSOLUTE QEHA4LEUW HealthcareBasophils/100 WBC (Bld)0.2 %0.2 - 2.0 %NOMS HealthcareEosinophils/100 WBC (Bld)3.2 %0.9 - 7.0 %NOMS HealthcareErythrocyte distribution width (RBC) [Ratio]12.5 %11.0 - 15.0 %NOMS HealthcareHematocrit (Bld) [Volume fraction]37.9 %36.0 - 48.0 %NOMS HealthcareHemoglobin (Bld) [Mass/Vol]13.2 g/dL12.0 - 16.0 g/dLNOMS HealthcareIMMATURE GRANULOCYTES ABS AUTO0.14HighNOMS HealthcareImmature granulocytes/100 WBC (Bld)1.5 %High0.0 - 0.5 %NOMS HealthcareInterpretation and review of laboratory resultsAbnormalNOOR HealthcareLYMPHOCYTES ABSOLUTE AUTO2 NOM HealthcareLymphocytes/100 WBC (Bld)20.8 %20.5 - 60.0 %CoxHealthH (RBC) [Entitic mass]30.9 pg26.7 - 34.0 pgNOGeneral Leonard Wood Army Community HospitalHC (RBC) [Mass/Vol] 34.8 g/dL29.9 - 35.2 g/dLCoxHealthV (RBC) [Entitic vol]88.8 fL81.0 - 99.0 fLNOEastern Missouri State HospitalMONOCYTES ABSOLUTE AUTO0.7NOOR HealthcareMonocytes/100 WBC (Bld)7.2 %1.7 - 12.0 %NOM HealthcareNEUTROPHILS ABSOLUTE AUTO6.3NOMS Healthcare Neutrophils/100 WBC (Bld)67.1 %43.0 - 75.0 %NOM HealthcarePlatelet mean volume (Bld) [Entitic vol]11.1 fL9.5 - 13.5 fLMCKAY-DEE HOSPITAL CENTER HealthcareTBH EO #0.3NOMS Healthcare TBH UMP798PIKMEastern Missouri State HospitalTB RBC4.27NOMS HealthcareTBH WBC9.4NOMS Healthcare CLINISYNCNOMS HealthcareUS OB DETAIL ANATOMYon 67-04-2145YR OB DETAIL ANATOMYInterpreted by: Ad Ovalle Indication [...] EFW (oz) 12 oz EFW by: Hadlock (LUU-VY-NK-FL) Extended Pedicab Driver 6.0 mm CM 4.4 mm 36% Nicolaides [...] Normal LVOT view: Normal 3-vessel view: Normal 1-jhqivp-isovhbb view: Normal Heart / Thorax Situs: situs [...] upper leg: Normal L (more content not included)...[facility]US for pregnancyon 04-83-1279Umurkcibooj by: Ad Ovalle Indication ======== Screening for [...] EFW (oz) 12 oz EFW by: Hadlock (IDF-TA-UI-FL) Extended Pedicab Driver 6.0 mm CM 4.4 mm 36% Nicolaides [...] Normal LVOT view: Normal 3-vessel view: Normal 3-xwlerq-whfhnnd view: Normal Heart / Thorax Situs: situs [...] Assisted Reproductive Technology History ====== General History Mokgfn822 cm Height (ft)5 ft Height (in)3 in Previous Outcomes Gravida1 Para0 Maternal Assessment Tsagin329 cm Height (ft)5 ft Height (in)3 in Hknwim37 kg Weight (lb)165 lb Weight gain0 kg [...] 87% Hadlock Femur32.4 mm20w 1d 73% Hadlock Mehtaow82.4 mm 45% Chitty HC / AC1.05 2% Hadlock EFJ749 g20w 1d 91% Hadlock EFW (lb)0 lb EFW (oz)12 oz EFW by:Hadlock (LUV-ES-RB-FL) Extended Vp6.0 mm CM4.4 mm 36% Nicolaides Nasal bone4.7 mm Head / Face / Neck Cephalic index0.74 10% Nicolaides Nasal bone:present Extremities / Bony Struc FL / BPD0.74 92% Hadlock FL / HC0.20 96% Hadlock FL / AC0.21 35% Hadlock Other Structures GHG469 bpm Anatomy Cranium:Normal Lateral ventricles:Normal Choroid plexus:Normal [...] view:Normal RVOT view:Normal LVOT view:Normal 3-vessel view:Normal 1-peebow-yuchsvh view:Normal Heart / Thorax Situs:situs solitus (normal) [...] leg:Normal Lt lower leg:Normal (more content not included)...[facility] Work Phone: Source Facility: [facility] Interpreted by: Ad Ovalle Indication ======== Screening [...] EFW (oz) 12 oz EFW by: Hadlock (IUE-HO-QL-FL) Extended Pedicab Driver 6.0 mm CM 4.4 mm 36% Nicolaides [...] Normal LVOT view: Normal 3-vessel view: Normal 2-fzrqkl-nfvlnwg view: Normal Heart / Thorax Situs: situs [...] included)...Radiology, Radiologist, MD - 10/07/2024 Source Facility: [facility] Interpreted by: Ad Ovalle Indication ======== Screening [...] EFW (oz) 12 oz EFW by: Hadlock ([id number]) Extended Pedicab Driver 6.0 mm CM 4.4 mm 36% Nicolaides [...] Normal LVOT view: Normal 3-vessel view: Normal 9-apwsmj-wzyfrgg view: Normal Heart / Thorax Situs: situs [...] arm: Normal Lt forear (more content not included)...[facility] ([facility]ative)[facility] Work Phone: Radiology Study observation (narrative)[facility] [facility] US for pregnancyOrdered By: Ad Ovalle on [id number] Clinic Medina Hospital Work Phone: US for pregnancyOrdered By: Radiologist Radiology on [id number] [facility] Work Phone: RECURRENT VAGINITIS (HTRX)on [id number] GGZNSJS7VRQV HealthcareATOPOBIUM VAGINAENot detectedNOOR HealthcareBVAB 2,3 (BACTERIAL VAGINOSIS ASSOCIATED BACTERIA 2, 3); MOBILUNCUS [id number] Healthcare BVAB 2,3 (BACTERIAL VAGINOSIS ASSOCIATED BACTERIA 2, 3); MOBILUNCUS SPPNot detectedNOMS HealthcareCANDIDA ALBICANS, PARAPSILOSIS, [id number] HealthcareCANDIDA ALBICANS, PARAPSILOSIS, TROPICALISNot detectedNOMS Healthcare PRESTON [id number] HealthcareCANDIDA GLABRATANot detectedNOMS Healthcare PRESTON [id number] HealthcareCANDIDA KRUSEINot detectedNOMS HealthcareCHLAMYDIA [id number] HealthcareCHLAMYDIA TRACHOMATISNot detectedNOMS Healthcare GARDNERELLA [id number] HealthcareGARDNERELLA VAGINALISNot detectedNOMS HealthcareMEGASPHAERA (TYPES 1, 2)0NOMS HealthcareMEGASPHAERA (TYPES 1, 2)Not detectedNOMS HealthcareMYCOPLASMA [id number] HealthcareMYCOPLASMA GENITALIUMNot detectedNOMS HealthcareNEISSERIA [id number] Healthcare NEISSERIA GONORRHOEAENot detectedNOMS HealthcareTRICHOMONAS [id number] HealthcareTRICHOMONAS VAGINALISNot detectedNOMS HealthcareNOMS Healthcare Urinalysis macro (dipstick) panel (U)on 88-19-8444Amwlrurgv, UANegativeNegative - 4(70) +++ mg/dLNOMS HealthcareBlood, UANegativeNegative [...] CBC WITH AUTO DIFFon 08-29-2024 BASOPHILS ABSOLUTE UNIH0UKOT HealthcareBasophils/100 WBC (Bld)0.2 %0.2 - 2.0 % NOMS HealthcareEosinophils/100 WBC (Bld)2.9 %0.9 - 7.0 %[facility] Erythrocyte distribution width (RBC) [Ratio]12 %11.0 - 15.0 %[facility] Hematocrit (Bld) [Volume fraction]39.3 %36.0 - 48.0 %[facility] ServicesHemoglobin (Bld) [Mass/Vol]13.6 g/dL12.0 - 16.0 g/dLSaint Francis Hospital & Health ServicesIMMATURE GRANULOCYTES ABS AUTO0.06HighNOEastern Missouri State HospitalImmature granulocytes/100 WBC (Bld)0.7 %High0.0 - 0.5 %[facility] HealthcareInterpretation and review of laboratory resultsAbnormGeisinger Medical CenterLYMPHOCYTES ABSOLUTE AUTO2.1NOMS [facility] HospitalLymphocytes/100 WBC (Bld) 25.4 %20.5 - 60.0 %[facility]HealthH (RBC) [Entitic mass]30.2 pg26.7 - 34.0 pg CoxHealthHC (RBC) [Mass/Vol]34.6 g/dL29.9 - 35.2 g/dLSaint Francis Hospital & Health ServicesMCV (RBC) [Entitic vol]87.3 fL81.0 - 99.0 fLSaint Francis Hospital & Health ServicesMONOCYTES ABSOLUTE AUTO 0.5NOMS [facility] HospitalMonocytes/100 WBC (Bld)5.8 %1.7 - 12.0 %[facility] NEUTROPHILS ABSOLUTE AUTO5.5NOEastern Missouri State HospitalNeutrophils/100 WBC (Bld)65 %43.0 - 75.0 %[facility] Health ServicesPlatelet mean volume (Bld) [Entitic vol]10.9 fL9.5 - 13.5 fLSaint Francis Hospital & Health ServicesTB EO #0.2NOMS [facility] HospitalTB JCF359UPLYSac-Osage Hospital RBC4.5 [facility] Health ServicesTB WBC8.4NOEastern Missouri State HospitalCLINISYNCNBothwell Regional Health CenterUrinalysis macro (dipstick) panel (U)on 67-10-3886Pktzppvbd, UANegativeNegative - 4(70) +++ mg/dL NOM HealthcareBlood, UANegativeNegative - 50 Jose/mcLNOOR HealthcareClarity, UA ClearNOMS HealthcareColor, UAYellowNOMS HealthcareGlucose, UANegativeNegative - 2000(110) ++++ mg/dLMCKAY-DEE [facility]OS[facility]ITAL [facility]ENTER HealthcareInterpretation and review of laboratory resultsAbnormalNOMS HealthcareKetones, UANegativeNegative - 160(16) ++++ mg/dL NOMS HealthcareLeukocytes, UAPositiveNegative - 500+++ Onel/mcLNOMS Healthcare Comment on above:smallNitrite, UANegativeNegative - PositiveNOMS HealthcarepH, UA65 - 9NOMS HealthcareProtein, UANegativeNegative - 2000(20) ++++ mg/dLNOMS HealthcareSpec Grav, UA1.0251 - 1.03NOMS HealthcareUrobilinogen, UA0.20.2 - 12 mg/dLNOOR HealthcareNOMS HealthcareHCG ( test) Ql (U)on 07-29-2024 Interpretation and review of laboratory resultsAbnormalNOMS HealthcarePreg Test, UrPositiveNegativeNOWashington County Memorial Hospital HealthcareUrinalysis macro (dipstick) panel (U)on 60-95-4392Vqzoycnsk, UANegativeNegative - 4(70) +++ mg/dLNOMS HealthcareBlood, UAPositiveNegative - 50 Jose/mcLNOMS HealthcareComment on above: traceClarity, UAClearNOMS HealthcareColor, UAYellowNOMS HealthcareGlucose, UA NegativeNegative - 2000(110) ++++ mg/dLNOMS HealthcareInterpretation and review of laboratory resultsAbnormalNOMS HealthcareKetones, UANegativeNegative - 160(16) ++++ mg/dLNOMS HealthcareLeukocytes, UAPositiveNegative - 500+++ Onel/mcL NOMS HealthcareComment on above:smallNitrite, UANegativeNegative - PositiveNOMS HealthcarepH, UA5.55 - 9NOMS HealthcareProtein, UANegativeNegative - 2000(20) ++++ mg/dLNOMS HealthcareSpec Grav, UA1.031 - 1.03NOOR HealthcareUrobilinogen, UA0.20.2 - 12 mg/dLNOEastern Missouri State HospitalNOOR HealthcarePROGESTERONEon 07-12-2024 BAZASYNACXRE55.5 ng/mLNormalQuest DiagnosticsComment on above:Result Comment: Reference Ranges Female Follicular Phase < 1.0 Luteal Phase 2.6-21.5 Post menopausal < 0.5 1st Trimester 4.1-34.0 2nd Trimester 24.0-76.0 3rd Trimester 52.0-302.0Performed By: #### 745 #### [facility] [address], [address] [place] [address] Bdr: Alexey Boogie MDUS OB TRANSVAGINALon 40-07-4779EB OB TRANSVAGINALInterpreted by: Juan Chavarria Indication ======== [...] [facility] CenterChoriogonadotropin.beta subuniton 06-30-2024 HCG.beta subunit Hj6476 m[IU]/mLHigh<[address] [place], [place] [address]Comment on above:Order Comment: Total HCG measurement is performed using the Faith Crist[employer] Access Immunoassay which detects intact HCG and free beta HCG subunit. This test is not indicated for use as a tumor marker. HCG testing is performed using a different test methodology at [facility] than other [facility]. [...] source of the HCG elevation.Performed By: #### 18577-7 #### JOSEPH ESQUIVEL ([id number]) [facility] ([facility]) [id number] [place] [address] 36223Rxaufeeracjwhzskyo.beta subuniton 22-69-9623NFE.beta subunit Qn330 m[IU]/mLHigh<[address] [place], [place] [address]Comment on above:Order Comment: Total HCG measurement is performed using the [employer] Access Immunoassay which detects intact HCG and free beta HCG subunit. This test is not indicated for use as a tumor marker. HCG testing is performed using a different test methodology at [facility] than other [facility]. [...] source of the HCG elevation.Performed By: #### 03715-2 #### JOSEPH ESQUIVEL ([id number]) [facility] ([facility]) [address] [place] [address] 18824Kvmgosoxcel 70-31-1639B2 [Mass/Vol]378 pg/mLNMary Rutan HospitalComment on above:Order Comment: REF VALUES FOLLICULAR PHASE 20-144 MID CYCLE 64-357 LUTEAL PHASE 56-214 POSTMENOPAUSE < 32 PREPUBERTY < 20 FEMALE 10-18Y 8-110 MALE 10-18Y < 20 ADULT MALE < 40 Estradiol measurement is performed using the Faith [employer] Access Estradiol Immunoassay. Estradiol testing is performed using a different test methodology at [facility] than other [facility]. Direct result comparison should only be made within the same method.Performed By: #### 2243-4 #### JOSEPH ESQUIVEL ([id number]) [facility] ([facility]) [address] [place] [address] [id number] 89-09-3010Zqszzcfhjoqz [Mass/Vol]42.6 ng/mL [facility] HospitalComment on above:Order Comment: REF VALUES Male <0.2-0.8 Follicular Phase <0.2-1.5 Luteal Phase 7.4-15.4 Post Menopausal <0.2-0.2 1ST Trimester 12.0-84.0 2ND Trimester 10.2-58.8 3RD Trimester 46.5-160 Progesterone is performed using the [employer] Access Immunoassay. Progesterone testing is performed using a different test methodology at [facility] than other [facility]. Direct result comparison should only be made within the same method.Performed By: #### 2839-9 #### JOSEPH ESQUIVEL ([id number]) [facility] ([facility]) [address] [place] [address] 62950Tw Panel Informationon 74-71-1570YxodciJuan Chavarria MD 06/13/2024 11:25 AM Embryo Transfer [...] Preop diagnosis: Infertility Post op diagnosis: Same Exterminator: none Depth: 7 cm Curve: anterior Distance [...] Juan Chavarria 06/13/24 11:24 AM [facility] Work Phone: Progesteroneon [phone] [Mass/Vol]45.0 ng/mLNToledo HospitalComment on above:Order Comment: REF VALUES Male <0.2-0.8 Follicular Phase <0.2-1.5 Luteal Phase 7.4-15.4 Post Menopausal <0.2-0.2 1ST Trimester 12.0-84.0 2ND Trimester 10.2-58.8 3RD Trimester 46.5-160 Progesterone is performed using the Faith [employer] Access Immunoassay. Progesterone testing is performed using a different test methodology at [facility] than other [facility]. Direct result comparison should only be made within the same method.Performed By: #### 2839-9 #### ORA MOHAN ([id number]) [facility] ([facility]) [address] [place] [address] 985[address]Oldrooycamh 29-00-5459O5 [Mass/Vol]2870 pg/mLNMary Rutan HospitalComment on above:Order Comment: REF VALUES FOLLICULAR PHASE 20-144 MID CYCLE 64-357 LUTEAL PHASE 56-214 POSTMENOPAUSE < 32 PREPUBERTY < 20 FEMALE 10-18Y 8-110 MALE 10-18Y < 20 ADULT MALE < 40Performed By: #### 2243-4 #### JOSEPH ESQUIVEL ([id number]) [facility] ([facility]) [address] [place], [place] [address]Nsqzeddhyzdcqd 48-09-6106Ybocalheinzi [Mass/Vol]0.4 ng/mL [facility] HospitalComment on above:Order Comment: REF VALUES Male <0.2-0.8 Follicular Phase <0.2-1.5 Luteal Phase 7.4-15.4 Post Menopausal <0.2-0.2 1ST Trimester 12.0-84.0 2ND Trimester 10.2-58.8 3RD Trimester 46.5-160 Progesterone is performed using the [employer]itide Access Immunoassay. Progesterone testing is performed using a different test methodology at [facility] than other [facility]. [...] for results near 1.0ng/mL. Contact laboratory at [phone] if alternative testing is needed.Performed By: #### 2839-9 #### JOSEPH ESQUIVEL ([id number]) [facility] ([facility]) [address] [place], [place] [address]UMX US PELVIS LIMITED FOLLICLES-FOLLICLE STUDIES PERFORMEDon 33-44-3760YNI US PELVIS LIMITED FOLLICLES-FOLLICLE STUDIES PERFORMEDFollicle scan performed with follicle measurements in report. and Trilaminar appearance to the endometrium is noted.[facility] Estradiolon 03-24-7790F9 [Mass/Vol]558 pg/mLNMary Rutan HospitalComment on above:Order Comment: REF VALUES FOLLICULAR PHASE 20-144 MID CYCLE 64-357 LUTEAL PHASE 56-214 POSTMENOPAUSE < 32 PREPUBERTY < 20 FEMALE 10-18Y 8-110 MALE 10-18Y < 20 ADULT MALE < 40Performed By: #### 2243-4 #### JOSEPH ESQUIVEL ([id number]) [facility] ([facility]) [address] [place], [place] [address]Znlssqvn Diameter USon 21-22-6248Bfhvgcfzsf appearance to the endometrium is noted. RIS SECTRA ONLYPremier Health [facility] Work Phone: Radiology Study observation (narrative)[facility] Work Phone: Progesteroneon 02-61-2368Mizbjvowuqvs [Mass/Vol]0.8 ng/mLNMary Rutan HospitalComment on above:Order Comment: REF VALUES Male <0.2-0.8 Follicular Phase <0.2-1.5 Luteal Phase 7.4-15.4 Post Menopausal <0.2-0.2 1ST Trimester 12.0-84.0 2ND Trimester 10.2-58.8 3RD Trimester 46.5-160 Progesterone is performed using the [employer] Access Immunoassay. Progesterone testing is performed using a different test methodology at [facility] than other [facility]. [...] for results near 1.0ng/mL. Contact laboratory at [phone] if alternative testing is needed.Performed By: #### 2839-9 #### JOSEPH ESQUIVEL ([id number]) [facility] ([facility]) [address] [place], [place] [address]XBP US ENDOMETRIAL LINING CHECKon 03-93-6522DIJ US ENDOMETRIAL LINING CHECKTrilaminar appearance to the endometrium is noted.[facility] HospitalNo Panel Informationon 34-42-4981UjymleJuan Chavarria MD 03/22/2024 9:44 AM Egg Retrieval [...] diagnosis: Female infertility Post op diagnosis: Same Exterminator: Dr. Warren IV Fluids: 600 cc EBL: 5 cc UOP: Not recorded Specimen: Oocytes Complications: None Number of Oocytes right ovary: 16 Ovarian access (right): Easy Number of Oocytes left ovary: 9 Ovarian access (left): Easy Endometrial thickness: n/a Needle type: Single Additional notes:[facility] Work Phone: Lutropinon [phone] Qn29.3 IU/LNMercy HospitalComment on above:Result Comment: LH Reference Values Follicular Phase 1.5-10.0 Mid-Cycle 13.0-72.0 Luteal Phase 0.5-13.0 Menopause 15.0-65.0 Pre-puberty 0- 3.0 Children 0- 6.0 Adult Male 1.0- 9.0 Luteinizing Hormone is performed using the [employer] Access Immunoassay. LH testing is performed using a different test methodology at [facility] than other [facility]. Direct result comparison should only be made within the same method.Performed By: #### 79637-3 #### SHAI Pickard ([id number]) [facility] ([facility]) [address] [place] [address] 81111Dvekiyxphzjhdm 96-23-2423Okvxqkybbhlc [Mass/Vol]4.5 ng/mL [facility] HospitalComment on above:Order Comment: HIV Ag/Ab screen is performed using the Siemens Atell[employer] HIV Ag/Ab Combo assay whichdetects the presence of HIV p24 antigen as well as antibodies to HIV-1 (Group M and O) and HIV-2. No laboratory evidence of HIV infection. If acute HIV infection is suspected, consider testing for HIV RNA by PCR (viral load).Performed By: #### 44857-8 #### SHAI Pickard ([id number]) [facility] ([facility]) [address] [place] [address] [id number] [Mass/Vol]Ordered By: Bela Rich on 11-75-3599SVI VALUES FOLLICULAR PHASE 20-144 MID CYCLE 64-357 LUTEAL PHASE 56-214 POSTMENOPAUSE < 32 PREPUBERTY < 20 FEMALE 10-18Y 8-110 MALE 10-18Y < 20 ADULT MALE < 40 Estradiol measurement is performed using the [employer] Access Estradiol Immunoassay. Estradiol testing is performed using a different test methodology at [facility] than other [facility]. Direct result comparison should only be made within the same method.[facility] CenterEstradiolOrdered By: Bela Rich on 64-82-6110G5 [Mass/Vol]4909 pg/mLPremier Health Miami Valley HospitalEstradiolon 46-32-0284X8 [Mass/Vol]4909 pg/mLNProtestant HospitalComment on above:Order Comment: HIV Ag/Ab screen is performed using the Siemens Atellica HIV Ag/Ab Combo assay whichdetects the presence of HIV p24 antigen as well as antibodies to HIV-1 (Group M and O) and HIV-2. No laboratory evidence of HIV infection. If acute HIV infection is suspected, consider testing for HIV RNA by PCR (viral load).Performed By: #### 81087-5 #### SHAI Pickard ([id number]) [facility] ([facility]) [address] [place] [address] 93167Eoponmpx Diameter USon 09-86-9325Pynrdhjv scan performed with follicle measurements in report. RIS SECTRA ONLYPrem[facility] Health [facility] Work Phone: Radiology Study observation (narrative)[facility] Work Phone: Progesteroneon [phone] [Mass/Vol]1.3 ng/mLUnCleveland Clinic Medina HospitalProgesterone [Mass/Vol]1.3 ng/mLNormal [facility] CampusComment on above:Order Comment: HIV Ag/Ab screen is performed using the Siemens Atellica HIV Ag/Ab Combo assay whichdetects the presence of HIV p24 antigen as well as antibodies to HIV-1 (Group M and O) and HIV-2. No laboratory evidence of HIV infection. If acute HIV infection is suspected, consider testing for HIV RNA by PCR (viral load).Performed By: #### 37709-8 #### SHAI Pickard ([id number]) [facility] ([facility]) [address] [place] [address] 17421Zkedekhtdvtb [Mass/Vol]on 47-21-6324YAM VALUES Male <0.2-0.8 Follicular Phase <0.2-1.5 Luteal Phase 7.4-15.4 Post Menopausal <0.2-0.2 1ST Trimester 12.0-84.0 2ND Trimester 10.2-58.8 3RD Trimester 46.5-160 Progesterone is performed using the [employer] Access Immunoassay. Progesterone testing is performed using a different test methodology at [facility] than other [facility]. Direct result comparison should only be made within the same method.[facility] Medical CenterREI US PELVIS LIMITED FOLLICLES-FOLLICLE STUDIES PERFORMEDon 43-13-3613KCW US PELVIS LIMITED FOLLICLES-FOLLICLE STUDIES PERFORMEDFollicle scan performed with follicle measurements in report.Normal [facility] CampusEstradiolon 44-48-1323F2 [Mass/Vol] 3760 pg/mLNormalUnParkwood HospitalComment on above: Order Comment: HIV Ag/Ab screen is performed using the Siemens Atellica HIV Ag/Ab Combo assay whichdetects the presence of HIV p24 antigen as well as antibodies to HIV-1 (Group M and O) and HIV-2. No laboratory evidence of HIV infection. If acute HIV infection is suspected, consider testing for HIV RNA by PCR (viral load).Performed By: #### 74367-4 #### SHAI Pickard ([id number]) [facility] ([facility]) [address] [place], [place] [address]Awcyghox Diameter USon 35-75-9946Yizdzfuq scan performed with follicle measurements in report. RIS SECTRA ONLYPrem[facility] Work Phone: Radiology Study observation (narrative)[facility] Work Phone: Progesteroneon [phone] [Mass/Vol]1.1 ng/mLNormalSumma Health Barberton CampusComment on above:Order Comment: HIV Ag/Ab screen is performed using the Siemens Atellica HIV Ag/Ab Combo assay whichdetects the presence of HIV p24 antigen as well as antibodies to HIV-1 (Group M and O) and HIV-2. No laboratory evidence of HIV infection. If acute HIV infection is suspected, consider testing for HIV RNA by PCR (viral load).Performed By: #### 10124-6 #### SHAI Pickard ([id number]) [facility] ([facility]) [address] [place] [address] 14803KVG US PELVIS LIMITED FOLLICLES-FOLLICLE STUDIES PERFORMEDon 86-38-4958IBW US PELVIS LIMITED FOLLICLES-FOLLICLE STUDIES PERFORMEDFollicle scan performed with follicle measurements in report.NormalSumma Health Barberton CampusE2 [Mass/Vol]on 24-35-7796QZW VALUES FOLLICULAR PHASE 20-144 MID CYCLE 64-357 LUTEAL PHASE 56-214 POSTMENOPAUSE < 32 PREPUBERTY < 20 FEMALE 10-18Y 8-110 MALE 10-18Y < 20 ADULT MALE < 40 Estradiol measurement is performed using the [employer] Access Estradiol Immunoassay. Estradiol testing is performed using a different test methodology at [facility] than other [facility]. Direct result comparison should only be made within the same method.[facility] HospitalUnCleveland Clinic Medina HospitalEstradiolon 50-52-4697H6 [Mass/Vol] 1462 pg/mLPremier Health Miami Valley HospitalE2 [Mass/Vol]1462 pg/mLNormal [facility] CampusComment on above:Order Comment: HIV Ag/Ab screen is performed using the Siemens Atellica HIV Ag/Ab Combo assay whichdetects the presence of HIV p24 antigen as well as antibodies to HIV-1 (Group M and O) and HIV-2. No laboratory evidence of HIV infection. If acute HIV infection is suspected, consider testing for HIV RNA by PCR (viral load).Performed By: #### 70638-6 #### SHAI Pickard ([id number]) [facility] ([facility]) [address] [place] [address] 464[address]Vsxyazin Diameter USon 27-74-5448Lvhozjub scan performed with follicle measurements in report. Trilaminar appearance to the endometrium is noted. Physiologic free fluid is noted in the cul de sac. Notably retroverted uterus. Two small complex ovarian cysts noted, one on the left and one on the right. [facility] SECTRA ONLYRadiology Study observation (narrative)[facility] Work Phone: Follicle Diameter USOrdered By: Leigh Ann Tuttle on 11-54-3092MllzvcxfvkPremier Health Miami Valley Hospital Work Phone: Progesteroneon 85-16-8475Ivnpiptnaayr [Mass/Vol]0.6 ng/mLNProtestant HospitalComment on above:Order Comment: HIV Ag/Ab screen is performed using the Siemens AtellFaceCake Marketing Technologies HIV Ag/Ab Combo assay whichdetects the presence of HIV p24 antigen as well as antibodies to HIV-1 (Group M and O) and HIV-2. No laboratory evidence of HIV infection. If acute HIV infection is suspected, consider testing for HIV RNA by PCR (viral load).Performed By: #### 37249-6 #### SHAI Pickard ([id number]) [facility] ([facility]) [address] [place] [address] [id number] US PELVIS LIMITED FOLLICLES-FOLLICLE STUDIES PERFORMEDon 72-10-0337FDI US PELVIS LIMITED FOLLICLES-FOLLICLE STUDIES PERFORMEDFollicle scan performed with follicle measurements in report. Trilaminar appearance to the endometrium is noted. Physiologic free fluid is noted in the cul de sac. Notably retroverted uterus. Two small complex ovarian cysts noted, one on the left and one on the right.[facility] HospitalE2 [Mass/Vol]on 45-31-1784MYY VALUES FOLLICULAR PHASE 20-144 MID CYCLE 64-357 LUTEAL PHASE 56-214 POSTMENOPAUSE < 32 PREPUBERTY < 20 FEMALE 10-18Y 8-110 MALE 10-18Y < 20 ADULT MALE < 40 Estradiol measurement is performed using the [employer] Access Estradiol Immunoassay. Estradiol testing is performed using a different test methodology at [facility] than other [facility]. Direct result comparison should only be made within the same method.[facility] HospitalUnCleveland Clinic Medina HospitalEstradiolon 75-94-5914C8 [Mass/Vol]721 pg/mLPremier Health Miami Valley HospitalE2 [Mass/Vol]721 pg/mLNProtestant HospitalComment on above:Order Comment: REF VALUESFOLLICULAR PHASE 20-144MID CYCLE 64-357LUTEAL PHASE 56-214POSTMENOPAUSE < 32PREPUBERTY < 20FEMALE 10-18Y 8-110MALE 10-18Y < 20ADULT MALE < 40Estradiol measurementis performed using the [employer] Access Estradiol Immunoassay. Estradiol testing is performedusing a different test methodology at [facility] than other [facility]. Direct resultcomparison should only be made within the same method.Performed By: #### 79587-6 #### SHAI Pickard ([id number]) [facility] ([facility]) [address] [place], [place] [address]Follicle Diameter USon 04-48-2743Pbeiebvi scan performed with follicle measurements in report., Trilaminar appearance to the endometrium is noted., and Free fluid is noted in the cul de sac. RIS SECTRA ONLYUnCleveland Clinic Medina Hospital Work Phone: Radiology Study observation (narrative)[facility] Work Phone: REI US PELVIS LIMITED FOLLICLES-FOLLICLE STUDIES PERFORMEDon 34-55-5230EGX US PELVIS LIMITED FOLLICLES-FOLLICLE STUDIES PERFORMED Follicle scan performed with follicle measurements in report., Trilaminar appearance to the endometrium is noted., and Free fluid is noted in the cul de sac.[facility] HospitalE2 [Mass/Vol]on 29-66-1618KQZ VALUES FOLLICULAR PHASE 20-144 MID CYCLE 64-357 LUTEAL PHASE 56-214 POSTMENOPAUSE < 32 PREPUBERTY < 20 FEMALE 10-18Y 8-110 MALE 10-18Y < 20 ADULT MALE < 40 Estradiol measurement is performed using the [employer] Access Estradiol Immunoassay. Estradiol testing is performed using a different test methodology at [facility] than other [facility]. Direct result comparison should only be made within the same method.[facility] HospitalUnCleveland Clinic Medina HospitalEstradiolon 83-35-2846M3 [Mass/Vol] pg/mLpg/mLUnCleveland Clinic Medina HospitalE2 [Mass/Vol]pg/mLNormalUnParkwood HospitalComment on above:Order Comment: REF VALUESFOLLICULAR PHASE 20-144MID CYCLE 64-357LUTEAL PHASE 56-214POSTMENOPAUSE < 32PREPUBERTY < 20FEMALE 10-18Y 8-110MALE 10-18Y < 20ADULT MALE < 40Estradiol measurementis performed using the [employer] Access Estradiol Immunoassay. Estradiol testing is performedusing a different test methodology at [facility] than other [facility]. Direct resultcomparison should only be made within the same method.Performed By: #### 52072-6 #### SHAI Pickard ([id number]) [facility]) [address] [place], [place] [address]Follicle Diameter USon 27-30-2170Xdvvogps scan performed with follicle measurements in report., Trilaminar appearance to the endometrium is noted., and Free fluid is noted in the cul de sac. RIS SECTRA ONLYRadiology Study observation (narrative)[facility] Work Phone: Follicle Diameter USOrdered By: Alicia Morgan on [id number] Clinic Medina Hospital Work Phone: Hematocrit Auto (Bld) [Volume fraction]on 03-09-2024 Hematocrit (Bld) [Volume fraction]43.2 %36.0 - 46.0 %[facility] HospitalInterpretation and review of laboratory resultsNormalUniversIndiana University Health North HospitalUnCleveland Clinic Medina HospitalHematocrit (Bld) [Volume fraction]43.2 %Btcges23.0-46.0[facility] Comment on above:Performed By: #### 92934-1 #### SHAI FINNNAYA Pickard ([id number]) [facility]) [address] [place], [place] [address]ZJT US PELVIS LIMITED FOLLICLES-FOLLICLE STUDIES PERFORMEDon 22-56-4798IEU US PELVIS LIMITED FOLLICLES-FOLLICLE STUDIES PERFORMEDFollicle scan performed with follicle measurements in report., Trilaminar appearance to the endometrium is noted., and Free fluid is noted in the cul de sac.Normal [facility] CampusNo Panel Informationon 02-23-2024 Juan Chavarria MD 02/23/2024 [...] diagnosis: Female infertility Post op diagnosis: Same Exterminator: none IV Fluids: 500 cc EBL: 5 cc UOP: Not recorded Specimen: Oocytes Complications: None Number of Oocytes right ovary: 17 Ovarian acc ss (right): Easy Number of Oocytes left ovary: 13 Ovarian access (left): Easy Endometrial thickness: n/a Needle type: Single Additional notes:KEL[facility] Work Phone: Lutropinon 12-57-6979Jmpgreih Qn35.3 IU/LNormal [facility] CampusComment on above:Result Comment: LH Reference Values Follicular Phase 1.5-10.0 Mid-Cycle 13.0-72.0 Luteal Phase 0.5-13.0 Menopause 15.0-65.0 Pre-puberty 0- 3.0 Children 0- 6.0 Adult Male 1.0- 9.0 Luteinizing Hormone is performed using the [employer] Access Immunoassay. LH testing is performed using a different test methodology at [facility] than other [facility]. Direct result comparison should only be made within the same method.Performed By: #### 08480-1 #### SHAI Pickard ([id number]) [facility]) [address] [place] [address]Mhvqgqqqcipwlv 16-82-9667Vynwbputkjcj [Mass/Vol]5.0 ng/mL [facility] HospitalComment on above:Order Comment: REF VALUESMale <0.2-0.8Follicular Phase <0.2-1.5Luteal Phase 7.4- 15.4Post Menopausal <0.2-0.21ST Trimester 12.0-84.02ND Trimester 10.2-58.83RD Trimester 46.5-160Progesterone is performed using the [employer] Access Immunoassay.Progesterone testing is performed using a different test methodology at [facility] than other [facility]. Direct result comp arison should only be made within the same method.Performed By: #### 54528-3 #### SHAI Pickard ([id number]) [facility]) [address] [place] [address] [id number] [Mass/Vol]Ordered By: Janet Infante on 57-43-5195NDY VALUES FOLLICULAR PHASE 20-144 MID CYCLE 64-357 LUTEAL PHASE 56-214 POSTMENOPAUSE < 32 PREPUBERTY < 20 FEMALE 10-18Y 8-110 MALE 10-18Y < 20 ADULT MALE < 40 Estradiol measurement is performed using the [employer] Access Estradiol Immunoassay. Estradiol testing is performed using a different test methodology at [facility] than other [facility]. Direct result comparison should only be made within the same method.[facility] HospitalUnCleveland Clinic Medina HospitalEstradiolOrdered By: Janet Infante on 16-62-9191G2 [Mass/Vol]5153 pg/mLPremier Health Miami Valley HospitalEstradiolon 77-64-6592F3 [Mass/Vol]5153 pg/mLNormalSumma Health Barberton CampusComment on above:Order Comment: REF VALUESFOLLICULAR PHASE 20-144MID CYCLE 64-357LUTEAL PHASE 56-214POSTMENOPAUSE < 32PREPUBERTY < 20FEMALE 10-18Y 8- 110MALE 10-18Y < 20ADULT MALE < 40Estradiol measurementis performed using the [employer] Access Estradiol Immunoassay. Estradiol testing is performed using a different test methodology at [facility] than other [facility]. Direct resultcomparison should only be made within the same method. Performed By: #### 49519-8 #### SHAI Pickard ([id number]) [facility]) [address] [place], [place] [address]Follicle Diameter USon 99-95-9281Irgptddt scan performed with follicle measurements in report. RIS SECTRA ONLYRadiology Study observation (narrative)[facility] Work Phone: Follicle Diameter USOrdered By: Juan Chavarria on 69-54-0613NewyxaraejPremier Health [facility] Hospital Work Phone: Luteinizing Hormone (LH)on 01-64-7564Rcgsvtyk Qn0.9 m[IU]/mLIU/[facility], AvonComment on above:LH Reference Values Follicular Phase 1.5-10.0 Mid-Cycle 13.0-72.0 Luteal Phase 0.5-13.0 Menopause 15.0-65.0 Pre-puberty 0- 3.0 Children 0- 6.0 Adult Male 1.0- 9.0 Luteinizing Hormone is performed using the [employer] Access Immunoassay. LH testing is performed using a different test methodology at [facility] than other [facility]. Direct result comparison should only be made within the same method. Lutropinon 15-49-8117Mnkldjsi Qn0.9 IU/LNormalSumma Health Barberton CampusComment on above:Result Comment: LH Reference Values Follicular Phase 1.5-10.0 Mid-Cycle 13.0-72.0 Luteal Phase 0.5-13.0 Menopause 15.0-65.0 Pre-puberty 0- 3.0 Children 0- 6.0 Adult Male 1.0- 9.0 Luteinizing Hormone is performed using the [employer] Access Immunoassay. LH testing is performed using a different test methodology at [facility] than other [facility]. Direct result comparison should only be made within the same method.Performed By: #### 63203-2 #### SHAI Pickard ([id number]) [facility]) [address] [place] [address] 78593Jzgkrqgc Qnon 48-30-4908UgbluibtjtCleveland Clinic Medina Hospital Progesteroneon 21-93-4554Ukccilwuymlp [Mass/Vol]1.3 ng/mLUnCleveland Clinic Medina HospitalProgesterone [Mass/Vol]1.3 ng/mLNormalSumma Health Barberton CampusComment on above:Order Comment: REF VALUESMale <0.2-0.8Follicular Phase <0.2-1.5Luteal Phase 7.4-15.4Post Menopausal <0.2-0.21ST Trimester 12.0- 84.02ND Trimester 10.2-58.83RD Trimester 46.5-160Progesterone is performed using the [employer] Access Immunoassay.Progesterone testing is performed using a different test methodology at [facility] than other [facility]. Direct result comparison should only be made within the same method. Performed By: #### 5196-1 #### SHAI Pickard ([id number]) [facility]) [address] [place], [place] [address]Mzovzgkbbzud [Mass/Vol]on 01-97-5731LRW VALUES Male <0.2-0.8 Follicular Phase <0.2-1.5 Luteal Phase 7.4-15.4 Post Menopausal <0.2-0.2 1ST Trimester 12.0-84.0 2ND Trimester 10.2-58.8 3RD Trimester 46.5-160 Progesterone is performed using the [employer] Access Immunoassay. Progesterone testing is performed using a different test methodology at [facility] than other [facility]. Direct result comparison should only be made within the same method.[facility] Medical CenterREI US PELVIS LIMITED FOLLICLES-FOLLICLE STUDIES PERFORMEDon 45-86-3659WBG US PELVIS LIMITED FOLLICLES-FOLLICLE STUDIES PERFORMEDFollicle scan performed with follicle measurements in report.Normal [facility] CampusEstradiolon 30-28-7608L7 [Mass/Vol] 3718 pg/mLNormalUnParkwood HospitalComment on above: Order Comment: REF VALUESFOLLICULAR PHASE 20-144MID CYCLE 64-357LUTEAL PHASE 56- 214POSTMENOPAUSE < 32PREPUBERTY < 20FEMALE 10-18Y 8-110MALE 10-18Y < 20ADULT MALE < 40Estradiol measurementis performed using the [employer] Access Estradiol Immunoassay. Estradiol testing is performedusing a different test methodology at [facility] than other [facility]. Direct r esultcomparison should only be made within the same method.Performed By: #### 5196-1 #### SHAI Pickard ([id number]) [facility]) [address] [place] [address] 436[address]Hnmoakovptigvc 95-31-5153Mosfyhsdzcyx [Mass/Vol]1.4 ng/mL [facility] HospitalComment on above:Order Comment: REF VALUESMale <0.2-0.8Follicular Phase <0.2-1.5Luteal Phase 7.4- 15.4Post Menopausal <0.2-0.21ST Trimester 12.0-84.02ND Trimester 10.2-58.83RD Trimester 46.5-160Progesterone is performed using the [employer] Access Immunoassay.Progesterone testing is performed using a different test methodology at [facility] than other [facility]. Direct result comp arison should only be made within the same method.Performed By: #### 5196-1 #### SHAI Pickard ([id number]) [facility]) [address] [place] [address]10[address]ISQ US PELVIS LIMITED FOLLICLES-FOLLICLE STUDIES PERFORMEDon 15-03-8779FWF US PELVIS LIMITED FOLLICLES-FOLLICLE STUDIES PERFORMEDFollicle scan performed with follicle measurements in report.[facility] HospitalE2 [Mass/Vol]on 82-25-0086EEZ VALUES FOLLICULAR PHASE 20-144 MID CYCLE 64-357 LUTEAL PHASE 56-214 POSTMENOPAUSE < 32 PREPUBERTY < 20 FEMALE 10-18Y 8-110 MALE 10-18Y < 20 ADULT MALE < 40 Estradiol measurement is performed using the [employer] Access Estradiol Immunoassay. Estradiol testing is performed using a different test methodology at [facility] than other [facility]. Direct result comparison should only be made within the same method.[facility] HospitalUnCleveland Clinic Medina HospitalEstradiolon 30-56-6516F2 [Mass/Vol] 1472 pg/mLUnCleveland Clinic Medina HospitalE2 [Mass/Vol]1472 pg/mLNormal [facility] CampusComment on above:Order Comment: REF VALUESFOLLICULAR PHASE 20-144MID CYCLE 64-357LUTEAL PHASE 56-214POSTMENOPAUSE < 32PREPUBERTY < 20FEMALE 10-18Y 8-110MALE 10-18Y < 20ADULT MALE < 40Estradiol measurementis performed using the [employer] Access Estradiol Immunoassay. Estradiol testing is performedusing a different test methodology at [facility] than other [facility]. Direct resultcomparison should only be made within the same method.Performed By: #### 5196-1 #### SHAI Pickard ([id number]) [facility]) [address] [place] [address] 84570Bjetzqpq Diameter USon 03-87-9675Itbamlpj scan performed with follicle measurements in report. Trilaminar appearance to the endometrium is noted. Free fluid is noted in the right paraovarian space. Notably retroverted uterus. RIS SECTRA ONLYRadiology Study observation (narrative)[facility] Work Phone: Follicle Diameter USOrdered By: Leigh Ann Tuttle on 77-87-5077KxnbpxaifcCleveland Clinic Medina Hospital Work Phone: REI US PELVIS LIMITED FOLLICLES-FOLLICLE STUDIES PERFORMEDon 12-46-9936ZYV US PELVIS LIMITED FOLLICLES-FOLLICLE STUDIES PERFORMED Follicle scan performed with follicle measurements in report. Trilaminar appearance to the endometrium is noted. Free fluid is noted in the right paraovarian space. Notably retroverted uterus.NormalUnParkwood HospitalE2 [Mass/Vol]on 29-28-3954MWO VALUES FOLLICULAR PHASE 20-144 MID CYCLE 64-357 LUTEAL PHASE 56-214 POSTMENOPAUSE < 32 PREPUBERTY < 20 FEMALE 10-18Y 8-110 MALE 10-18Y < 20 ADULT MALE < 40 Estradiol measurement is performed using the [employer] Access Estradiol Immunoassay. Estradiol testing is performed using a different test methodology at [facility] than other [facility]. Direct result comparison should only be made within the same method.[facility] HospitalUnCleveland Clinic Medina HospitalEstradiolon 02-14-1273B1 [Mass/Vol]639 pg/mLUnCleveland Clinic Medina HospitalE2 [Mass/Vol]639 pg/mLNProtestant HospitalComment on above:Order Comment: REF VALUESFOLLICULAR PHASE 20-144MID CYCLE 64-357LUTEAL PHASE 56-214POSTMENOPAUSE < 32PREPUBERTY < 20FEMALE 10-18Y 8-110MALE 10-18Y < 20ADULT MALE < 40Estradiol measurementis performed using the [employer] Access Estradiol Immunoassay. Estradiol testing is performedusing a different test methodology at [facility] than other [facility]. Direct resultcomparison should only be made within the same method.Performed By: #### 5196-1 #### SHAI Pickard ([id number]) [facility]) [address] [place] [address] 85335YXQ US PELVIS LIMITED FOLLICLES-FOLLICLE STUDIES PERFORMEDon 80-21-1416YJZ US PELVIS LIMITED FOLLICLES-FOLLICLE STUDIES PERFORMEDFollicle scan performed with follicle measurements in report. and Trilaminar appearance to the endometrium is noted.NormalSumma Health Barberton Campus E2 [Mass/Vol]on 96-55-3621BJS VALUES FOLLICULAR PHASE 20-144 MID CYCLE 64-357 LUTEAL PHASE 56-214 POSTMENOPAUSE < 32 PREPUBERTY < 20 FEMALE 10-18Y 8-110 MALE 10-18Y < 20 ADULT MALE < 40 Estradiol measurement is performed using the [employer] Access Estradiol Immunoassay. Estradiol testing is performed using a different test methodology at [facility] than other [facility]. Direct result comparison should only be made within the same method.[facility] HospitalUnCleveland Clinic Medina HospitalEstradiolon 57-65-3717Q6 [Mass/Vol] pg/mLpg/mLUnCleveland Clinic Medina HospitalE2 [Mass/Vol]pg/mLNProtestant HospitalComment on above:Order Comment: REF VALUESFOLLICULAR PHASE 20-144MID CYCLE 64-357LUTEAL PHASE 56-214POSTMENOPAUSE < 32PREPUBERTY < 20FEMALE 10-18Y 8-110MALE 10-18Y < 20ADULT MALE < 40Estradiol measurementis performed using the [employer] Access Estradiol Immunoassay. Estradiol testing is performedusing a different test methodology at [facility] than other [facility]. Direct resultcomparison should only be made within the same method.Performed By: #### 5196-1 #### SHAI Pickard ([id number]) [facility]) [address] [place], [place] [address]Jscailok Diameter USon 85-32-7582Tuwmmwln scan performed with follicle measurements in report. MFMRadiology Study observation (narrative)[facility] Work Phone: Follicle Diameter USOrdered By: Juan Chavarria on 41-27-2643XpqllwgqtuCleveland Clinic Medina Hospital Work Phone: Hematocrit Auto (Bld) [Volume fraction]on 02-09-2024 Hematocrit (Bld) [Volume fraction]42.9 %36.0 - 46.0 %[facility] HospitalInterpretation and review of laboratory resultsNormSelect Medical Specialty Hospital - AkronUnCleveland Clinic Medina HospitalHematocrit (Bld) [Volume fraction]42.9 %Btorhs07.0-46.0UnParkwood Hospital Comment on above:Performed By: #### 4544-3 #### JOSEPH ESQUVIEL ([id number]) [facility] ([facility]) [address] [place], [place] [address]GJX US PELVIS LIMITED FOLLICLES-FOLLICLE STUDIES PERFORMEDon 45-38-9559MSW US PELVIS LIMITED FOLLICLES-FOLLICLE STUDIES PERFORMEDFollicle scan performed with follicle measurements in report.NormalUnParkwood HospitalHCG ( test) Ql (U)on 37-59-6331Icrzxzfwtxjnlh and review of laboratory resultsNoMagruder Memorial Hospital Work Phone: Preg Test, UrNegativeNegativeUnCleveland Clinic Medina Hospital Work Phone: UnCleveland Clinic Medina Hospital Work Phone: No Panel Informationon 75-71-5039OnporgtLeigh Ann Tuttle MD 01/28/2024 9:32 AM Polypectomy [...] completion: Tolerated well, no immediate complicationsREI LAB [facility] Work Phone: Surgical pathology studyon 97-22-1201Fkykvvkv pathology studyPathology report.total SEE COMMENT Surgical Pathology Case: [id number] Authorizing Provider: Leigh Ann Tuttle MD Collected: 01/28/2024 1027 Ordering Location: [facility] Received: 01/28/2024 1027 [place] Pathologist: Yamila Leo MD Specimen: ENDOMETRIUM POLYPECTOMY [...] specimen is entirely submitted in 1 cassette. [facility] Memorial HospitalIGP,APTIMA HPV,AGE GDLNon 42-25-4175BSU LN ACOG TESTINGNote.[facility] HealthcareComment on above:TESTS RESULT FLAG UNITS REF RANGE LAB Clinician Provided Cytology Information Source.............Cervix;Endocervix No. of containers..01 ThinPrep Vial Age Arsh VALDEZ Telma... FLAG LEGEND: L-Low Normal,H-High Normal,LL-Alert Low,HH-Alert High <-Panic Low,>-Panic High,A-Abnormal,AA-Critical Abnormal Performed at: 01 =G [facility] [place] [address] Nidhi Fay MD, IGP, RFX APTIMA HPV ASCUNote.[facility] HealthcareComment on above:TESTS RESULT FLAG UNITS REF RANGE LAB DIAGNOSIS: 02 NEGATIVE FOR INTRAEPITHELIAL LESION OR MALIGNANCY. Specimen adequacy: 02 Satisfactory for evaluation. Endocervical and/or squamous metaplastic cells (endocervical component) are present. Performed by: Gaby Masters Bilingual Medical Receptionist (ASC) . 02 Note: Note 02 The [...] Low,>-Panic High,A-Abnormal,AA-Critical Abnormal Performed at: [address] [facility] [address] [place] [address] Nidhi Fay MD, Performed at: =G - [facility] [address], [place] [address] Airport Sales Agent: Nidhi Fay MD, Phone: [phone] Performed at: - [facility] [id number] Airport Sales Agent: Nidhi Fay MD, Phone: [phone] BRUSH-SPATULA CERVIX ENDOCERVIX CLINISYNCNOMS [facility] HospitalBlmayo clinic health system type and Indirect antibody screen panel (Bld)on 40-30-7042QDS group Nom (Bld)OULicking Memorial HospitalBlood group antibody screen QlNegativePremier Health Miami Valley HospitalD Ag Ql (Bld)Positive [facility] CenterAB group Nom (Bld)ONProtestant HospitalComment on above: Performed By: #### 48657-8 #### JOSEPH ESQUIVEL ([id number]) [facility] ([facility]) [address] [place] [address] USBlood group antibody screen QlNegativeNoFirelands Regional Medical Center South CampusComment on above:Performed By: #### 58985-2 #### JOSEPH ESQUIVEL ([id number]) [facility] ([facility]) [address] Ag Ql (Bld)PositiveAdams County HospitalComment on above:Performed By: #### 67062-2 #### JOSEPH ESQUIVEL ([id number]) [facility] ([facility]) [address] trachomatis and N. gonorrhoeae DNA EDELMIRA+probe Nom (Unsp spec)on 2023. trachomatis rRNA EDELMIRA+probe Ql (Unsp spec)NegativeNormal [facility] Health TroyComment on above:Order Comment: The APTIMA Combo 2 [...] validated for this method. Performed By: #### 70931-2 #### SHAI Pickard ([id number]) [facility]) [address] [place], [place] [address]N. gonorrhoeae DNA Probe+sig amp Ql (Unsp spec)NegativeNormal NegativeSumma Health Barberton CampusComment on above:Order Comment: The APTIMA Combo 2 [...] validated for this method. Performed By: #### 64808-1 #### SHAI Pickard ([id number]) [facility]) [address] [place] [address] 42789NIR 1+2 Ab+HIV1 p24 Agon 93-41-0845LGS 1+2 Ab+HIV1 p24 Ag IA QlNon-ReactiveProMedica Fostoria Community Hospital Comment on above:Order Comment: HIV Ag/Ab screen is performed using the [employer] HIV Ag/Ab Combo assay whichdetects the presence of HIV p24 antigen as well as antibodies to HIV-1 (Group M and O) and HIV-2. No laboratory evidence of HIV infection. If acute HIV infection is suspected, consider testing for HIV RNA by PCR (viral load).Performed By: #### 43943-1 #### SHAI Pickard ([id number]) [facility]) [address] [place] [address] 34133Pbcgorokx B virus surface Agon 90-19-4048KYB surface Ag IA Ql Non-ReactiveNoMagruder Memorial Hospital Comment on above:Result Comment: Biotin interference may cause falsely decreased results. Patients taking a Biotin dose of up to 5 mg/day should refrain from taking Biotin for 24 hours before sample collection. Providers may contact their local laboratory for further information.Performed By: #### 5196-1 #### SHAI Pickard ([id number]) [facility]) [address] [place] [address] 95712Sbipjstvo C virus Abon 60-40-3316CQN Ab Ql (S)Non-Reactive [facility]oria Community HospitalComment on above: Result Comment: Results from patients taking biotin supplements or receiving high-dose biotin therapy should be interpreted with caution due to possible interference with this test. Providers may contact their local laboratory for further information.Performed By: #### 06115-0 #### SHAI Pickard ([id number]) [facility]) [address] [place] [address] 18728Ipahddv virus IgG IA Qnon 94-31-0430Sdmfetn virus IgG IA Ql PositiveNormalNegativeSumma Health Barberton CampusComment on above:Order Comment: NEGATIVE: No IgG antibodies [...] Performed By: #### 5334-8 #### SHAI Pickard ([id number]) [facility]) [address] [place] [address] 65447Kzsmisd virus IgG Qn (S)1.2 IANormal<=0.7 IASumma Health Barberton CampusComment on above:Order Comment: NEGATIVE: No IgG antibodies [...] Performed By: #### 5334-8 #### SHAI Pickard ([id number]) [facility] ([facility]) [address] [place] [address] 25711Albdhgobv pallidum Ab.IgG+IgMon 2023T. pallidum IgG+IgM IA Ql (S)Non-ReactiveNormalNonreactiveSumma Health Barberton CampusComment on above:Result Comment: No significant level of Treponema pallidum antibody detected. Repeat testing in 2 to 4 weeks may be considered if early infection or incubating syphilis infection is suspected.Performed By: #### 09108-4 #### SHAI Pickard ([id number]) [facility] ([facility]) [address] [place] [address] 05801AGN IgG IA Ql (S)on 49-45-5673TNRGEDWGO ZOSTER IGG INDEX5.6 IAHigh<=0.8Sum[facility] Barber[facility] CampusComment on above:Order Comment: NEGATIVE: No IgG antibodies [...] altered results in serological assays.Performed By: #### 09600-7 #### SHAI Pickard ([id number]) [facility] ([facility]) [address] [place] [address] 16448Akasygcff zoster virus Ab.IgGon 43-83-6342EAR IgG IA Ql (S) PositiveAbnormalNegativeUnParkwood HospitalComment on above:Order Comment: NEGATIVE: No IgG antibodies [...] altered results in serological assays.Performed By: #### 12832-4 #### SHAI Pickard ([id number]) [facility]) [address] [place] [id number] Visit Summaryon 14-90-1522Mfjwwyxhtr Visit Summary SYDNEY ROMERO :1995 Visit Date:10/02/2023 [...] knee anterior cruciate ligament allograft reconstruction with rxuj-ebeshk-gcia, debridment medial meniscus tear, patellofemoral chondroplasty-Grade I-II (07/28/2013), Tonsillectomy, tubes in the ears. Discharge Vitals Temperature (Oral) 36.8 ?C Heart Rate (Peripheral) 65 Blood Pressure 118/66 Height 162 cm Height 64 in Weight 76.7 kg Weight 168.74 lb BMI 29.23 What to do next Scheduled Follow-Up Appointments Thursday 7:20 AM EDT With: Princess Dumont [facility] Office/Clinic Noteon 57-99-9019Eblpwl Medicine Office/Clinic NoteChief Complaint pt here for [...] lot of blood work ordered by her CASE LOADER OPERATOR and we are going to go [...] mg once day. She has been taking kdlf-mqb-odeqgwh magnesium at night since initiating Topamax. Weight management. The patient expresses a desire to lose weight and re-initiate her Adipex. She has previously tried Aryan tafw-mau-wkqodaq but found it ineffective. 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 She is agreeable trying [...] up with me in (more content not included)...[facility] HospitalComment on above:Result Comment: Electronically Signed By: Princess Dumont\.br\Date and Time Signed: 10/02/23 16:44 EDT\.br\Electronically Co-Signed By: Raj Chu\.br\Date and Time Co-Signed: 10/01/2414:48 EDTLab Reportson [id number] Reports [id number]#1.00TIFFMetroHealth [facility] Educationon 48-24-0815Hphroav EducationBMI for Adults What is BMI? Body [...] numbers. This can be done either in [place] or metric measurements. Note that charts and online BMI calculators are available to help you find your BMI quickly and easily without having to do these calculations yourself. To calculate your BMI in [place] measurements: 1. Measure your weight in [...] for Disease Control and Prevention: www.cdc.gov ? [place] Heart Association: www.heart.org ? National Heart, Lung, and Blood Index: www.nhlbi.nih.gov Summary ? Body mass index (BMI) is a number that is calculated from a person's weight and height. ? BMI may help estimate how much of a person's weight is composed of fat. BMI can help identify those who may be at higher risk for certain medical problems. ? BMI can be measured using [place] measurements or metric measurements. ? BMI charts are used to identify whether you are underweight, normal weight, overweight, or obese. This information is not intended to replace advice given to you by your health care provider. Make sure you discuss any questions you have with your health care provider. Document Revised: 01/11/2020 Document Reviewed: 11/18/2019 [employer] Patient Education ? 2022 [employer]. Dermatology Eczema Eczema refers to a group [...] signs or symptoms? S (more content not included)...NormalMarietta Osteopathic ClinicTransfer Inon 33-19-8325Tdomldka [id number]#1.00TIFFNormal [facility] Medicine Office/Clinic Noteon 83-34-2072Toqlpj Medicine Office/Clinic NoteChief Complaint 1 month follow [...] and encouraged her to go see her CASE LOADER OPERATOR. The patient was overweight with an elevated BMI. Her laboratories I ordered were not performed, and she did not do the x-ray that I ordered either. She presents for headaches again. Cervicalgia and persistent headaches. The patient underwent cervical x-ray in 02/20/2023 in [place], the day after her last visit on [...] in 06/2023 or 07/2023 and done at [place]. She is uncertain if cholesterol levels were checked. Her bowel movements and urination are normal. She and her switched clinics where she is the patient for an IVF and are waiting for an appointment within the next 2 months. She has a . 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 Ibuprofen every 6 to 8 hours. Tylenol [...] female, well appearing. EN (more content not included)...[facility] HospitalComment on above:Result Comment: Electronically Signed By: Princess Dumont\.br\Date and Time Signed: 08/29/23 15:46 EDT\.br\Electronically Co-Signed By: Ryan Kapadia\.br\Date and Time Co-Signed: 08/28/23 11:38 EDTPatient Educationon 18-49-8903Edlzvld EducationBMI for Adults What is BMI? Body [...] numbers. This can be done either in [place] or metric measurements. Note that charts and online BMI calculators are available to help you find your BMI quickly and easily without having to do these calculations yourself. To calculate your BMI in [place] measurements: 1. Measure your weight in [...] for Disease Control and Prevention: www.cdc.gov ? [place] Heart Association: www.heart.org ? National Heart, Lung, and Blood Index: www.nhlbi.nih.gov Summary ? Body mass index (BMI) is a number that is calculated from a person's weight and height. ? BMI may help estimate how much of a person's weight is composed of fat. BMI can help identify those who may be at higher risk for certain medical problems. ? BMI can be measured using [place] measurements or metric measurements. ? BMI charts are used to identify whether you are underweight, normal weight, overweight, or obese. This information is not intended to replace advice given to you by your health care provider. Make sure you discuss any questions you have with your health care provider. Document Revised: 01/11/2020 Document Reviewed: 11/18/2019 [employer] Patient Education ? 2022 [employer] Endocrinology Carbohydrate Counting for Diabetes Mellitus, [...] What foods contain carbohydra (more content not included)...[facility] SERUMon 64-92-8826Cbtelmeagyvvkknnocqfuf (DHEA)429 ng/dL Bjjrvv83-490IweAdena Health Systemment on above:Performed By: #### DHEA. #### [facility] [address] [address] [address] Meghna Hung-MULLERIAN HORMONEon 13-74-8561Dpqm-Mullerian Hormone (AMH) 2.01 ng/mLNormalFisher-Titus Medical Center on above:Result Comment: For assays employing antibodies, the possibility exists for interference by heterophile antibodies in the samples.1 1.Ramon Calderon Interferences in Immunoassays - still a threat. Clin. Chem. 2000; 46: 5134-8933. This test was developed and its performance characteristics determined by [employer]. It has not been cleared or approved by the Food and Drug Administration. Reference Range: Females 20 - 25y: 1.23 - 11.51 Median 4.70 AMH concentrations of >= 1.06 ng/mL is correlated with a better response to ovarian stimulation, produced more retrievable oocytes and higher odds of live according to Lindseyer et al. Fertility and Sterility. 2010: 94:1340-1369. The current AMH test method correlates with [...] AMH-secreting ovarian tumor.Performed By: #### AMAHORE #### [facility] [address] [place], [place] [address] Dr. Meghna Arredondo ACOG PANEL 2: 21 to 29on 07-29-2022..[facility] on above:Performed By: #### [id number] ####[facility] [address] [place], [place] [address]DrBetito Samayoa Gdln ACOG Ecrjujb38-76TsshldPehMount Carmel Health System on above:Performed By: #### [id number] ####[facility] [address] [place], [place] [address]DrBetito AlasDIAGNOSIS:CommentProMedica Memorial Hospital on above:Result Comment: NEGATIVE FOR INTRAEPITHELIAL LESION OR MALIGNANCY. Performed By: #### [id number] ####[address] [address]Dr. Meghna AlasMethodology:CommentProMedica Memorial Hospital on above:Result Comment: This liquid based ThinPrep(R) pap test was screened with the use of an image guided system.Performed By: #### [id number] ####[address] [address]Dr. Meghna AlasNote:Comment [facility] on above:Result Comment: The Pap smear is a screening test designed to aid in the detection of premalignant and malignant conditions of the uterine cervix. It is not a diagnostic procedure and should not be used as the sole means of detecting cervical cancer. Both false-positive and false-negative reports do occur. .Performed By: #### [id number] ####[address] [address]DrBetito AlasPerformed by:CommentProMedica Memorial Hospital on above:Result Comment: Kerrie Villarreal, Supervisory Bilingual Medical Receptionist (ASCP)Performed By: #### [id number] ####[facility] [address] [place], [place] [address]DrBetito AlasReflex Criteria:CommentProMedica Memorial Hospital on above:Result Comment: The HPV DNA reflex criteria were not met with this specimen result therefore, no HPV testing was performed. .Performed By: #### [id number] ####[address] [address]Dr. Meghna AlasSpecimen adequacy:CommentNormKettering Health DaytonComment on above:Result Comment: Satisfactory for evaluation. Endocervical and/or squamous metaplastic cells (endocervical component) are present.Performed By: #### [id number] ####[facility] [address] [address]Dr. Meghna AlasDHEA-SULFATEon 75-50-5107JRBN-Uktkxjk308.0 ug/rNJmuojp639.0-431.7The [facility] CenterComment on above:Performed By: #### DHEASUL #### [facility] [address] [address] [address] Meghna AlasFSHon 49-53-2369DBG26.4 mIU/mLNSalem Regional Medical CenterComment on above:Result Comment: Adult Female: Follicular phase 3.5 - 12.5 Ovulation phase 4.7 - 21.5 Luteal phase 1.7 - 7.7 Postmenopausal 25.8 - 134.8Performed By: #### LBCFSH #### [facility] [address] [place] [address] Dr. Meghna AlasLUTEINIZING HORMONE (LH)on 09-37-4871XN54.8 mIU/mLNSalem Regional Medical CenterComment on above:Result Comment: Adult Female: Follicular phase 2.4 - 12.6 Ovulation phase 14.0 - 95.6 Luteal phase 1.0 - 11.4 Postmenopausal 7.7 - 58.5Performed By: #### LBCLH #### [facility] [address] [place] [address] Dr. Meghna AlasUS PELVIS AND TRANSVAGon 64-38-0007WN PELVIS AND TRANSVAGEXAM: US PELVIS AND TRANSVAG [...] Electronically authenticated by: RACQUEL UNLU Date: 2022-07-27 08:10NoPremier Health [facility] AUTO DIFFon 62-67-6110LJCN #0.1 103/ulNormal0.0-0.1[facility]tering [facility] DaytonComment on above:Performed By: #### CBC #### [facility] [address] [place] [address] Dr. Meghna AlasBasophils/100 WBC (Bld)0.8 %Normal0.2-2.0[facility] Comment on above:Performed By: #### CBC #### [facility] [address] [address] [address] Meghna Lowry #0.2 103/ulNormal0.0-0.7The [facility] Medical CenterComment on above: Performed By: #### CBC #### [facility] [address] [place] [address] Dr. Meghna Rivasosinophils/100 WBC (Bld)3.7 %Normal0.9-7.0[facility] Comment on above:Performed By: #### CBC #### [facility] [address] [address] [address] Meghna Rivasrythrocyte distribution width (RBC) [Ratio]11.7 %Hdppox49.0-15.0 [facility] DaytonComment on above:Performed By: #### CBC #### [facility] [address] [place] [address] Dr. Meghna AlasHematocrit (Bld) [Volume fraction]43.6 %Wlahdi29.0-48.0The [facility] Medical CenterComment on above:Performed By: #### CBC #### [facility] [address] [place] [address] Dr. Meghna AlasHemoglobin (Bld) [Mass/Vol]14.9 g/dOMcajjk14.0-16.0The [facility] CenterComment on above:Performed By: #### CBC #### [facility] [address] [place] [address] Dr. Meghna Ruano #0.02 10e3/ulNormal0.00-0.03The [facility] CenterComment on above:Performed By: #### CBC #### [facility] [address] [place] [address] Dr. Meghna Ruano %0.3 %Normal0.0-0.5The [facility] Medical CenterComment on above: Performed By: #### CBC #### [facility] [address] [place] [address] Dr. Meghna Stokes #1.7 103/ulNormal1.2-3.8The [facility] Medical CenterComment on above:Performed By: #### CBC #### [facility] [address] [place] [address] Dr. Meghna Mackenziehocytes/100 WBC (Bld)27.7 %Vpjtza99.5-60.0The [facility] Medical CenterComment on above:Performed By: #### CBC #### [facility] [address] [place] [address] Dr. Meghna FreemanUAL DIFF REQNONormalThe [facility] Medical CenterComment on above: Performed By: #### CBC #### [facility] [address] [place] [address] Dr. Meghna Simon (RBC) [Entitic mass]30.7 vcMylqpl01.7-34.0The [facility] Medical CenterComment on above:Performed By: #### CBC #### [facility] [address] [place] [address] Dr. Meghna Senior (RBC) [Mass/Vol]34.2 g/yYWjgcmr26.9-35.2The [facility] CenterComment on above:Performed By: #### CBC #### [facility] [address] [place] [address] Dr. Meghna Rea (RBC) [Entitic vol]89.7 kNPaczpz41.0-99.0The [facility] CenterComment on above:Performed By: #### CBC #### [facility] [address] [place] [address] Dr. Meghna Carrasco #0.4 103/ulNormal0.3-0.8The [facility] CenterComment on above:Performed By: #### CBC #### [facility] [address] [place] [address] Dr. Meghna Odenocytes/100 WBC (Bld)7.1 %Normal1.7-12.0The [facility] Comment on above:Performed By: #### CBC #### [facility] [address] [place] [address] Dr. Meghna Silva #3.7 103/ulNormal1.4-6.5The [facility] CenterComment on above:Performed By: #### CBC #### [facility] [address] [place] [address] Dr. Meghna Sanutrophils/100 WBC (Bld)60.4 %Zfgxvn95.0-75.0The [facility] CenterComment on above:Performed By: #### CBC #### [facility] [address] [place] [address] Dr. Meghna Danielslet mean volume (Bld) [Entitic vol]11.3 fLNormal9.5-13.5The [facility] CenterComment on above:Performed By: #### CBC #### [facility] [address] [place] [address] Dr. Meghna RogersT154 103/ziFmkxwx403-061Yvv [facility] CenterComment on above: Performed By: #### CBC #### [facility] [address] [place] [address] Dr. Meghna AlasRBC4.86 106/ulNormal4.20-5.40The [facility] CenterComment on above:Performed By: #### CBC #### [facility] [address] [place] [address] Dr. Meghna AlasWBC6.2 103/ulNormal4.0-11.0The [facility] CenterComment on above: Performed By: #### CBC #### [facility] [address] [place] [address] Dr. Meghna AlasFREE T4on 69-21-8367Yozz T4 [Mass/Vol]1.04 ng/dLNormal0.76-1.46 The [facility] CenterComment on above:Performed By: #### FT4 #### [facility] [address] [place] [address] Dr. Meghna AlasGLYCOHEMOGLOBIN A1Con 53-64-8722OOX RECOMMENDATIONSEE BELOWNormal The [facility] CenterComhuron [facility] on above:Result Comment: ADA RECOMMENDED LIMIT 4.0 - 6.0 ADA THERAPEUTIC TARGET < 7.0 ACTION SUGGESTED > 7.0Performed By: #### A1C #### [facility] [address] [place] [address] Dr. Meghna AlasGlucose [Mass/Vol]82 mg/dLNormalThe [facility] Medical CenterComhuron valley-sinai hospital on above:Performed By: #### A1C #### [facility] [address] [place] [address] Dr. Meghna AlasHbA1c (Bld) [Mass fraction]4.5 %Normal4.5-6.2The [facility] CenterComment on above:Performed By: #### A1C #### [facility] [address] [place] [address] Dr. Meghna AlasTSHoroxy 58-09-5046ZPZ8.522 uIU/mLNormal0.358-3.740The [facility] CenterComment on above:Performed By: #### TSH #### [facility] [address] [place] [address] Dr. Meghna Alas Vital Signs Date TimeVital SignValuePerforming TeeviyxwdKlieyncw02-68-4394 14:44-0400Body mass index (BMI) [Ratio]42.07 kg/b7Ypwbt Sherwin DO Work Phone: [phone] [place] [address]-14-2025 14:44-0400Body xyvuge841.73 kgCorey Sherwin DO Work Phone: [phone] [place], [place] [address]Ldrqklizjp49-78-4347 14:44-0400Diastolic blood gkhyqjau70 mm[Hg]Layo Sherwin DO Work Phone: [phone] [place] [address]-14-2025 14:44-0400Systolic blood cciwbpas545 mm[Hg]Layo Sherwin DO Work Phone: [phone] [place], [place] [address]88[address]10-07-2025 13:41-0400Body mass index (BMI) [Ratio]41.88 kg/p2CihekmlvYomaira Guerrero ANODE CREW SUPERVISOR Work Phone: 1(732)[facility] [place], [place] [address]Ormvwcfskp25-61-5336 13:41-0400Body bptdku658.23 kgYomaira Guerrero ANODE CREW SUPERVISOR Work Phone: [phone])[address] [place], [place] 9883410-07-2025 13:41-0400Diastolic blood jfuxoprw28 mm[Hg]Yomaira Guerrero ANODE CREW SUPERVISOR Work Phone: [phone] [place], [place] 988[address]10-07-2025 13:41-0400Systolic blood fgvhxehy755 mm[Hg]Yomaira Guerrero ANODE CREW SUPERVISOR Work Phone: [phone])[address] [place], [place] 9883409-30-2025 14:07-0400Body mass index (BMI) [Ratio]40.57 kg/i0Ovlaqmfdglynn Duncanly ANODE CREW SUPERVISOR Work Phone: [phone])[address] [place], [place] 9883409-30-2025 14:07-0400Body dhkarv422.87 kgKrlauraa Cesar ANODE CREW SUPERVISOR Work Phone: [phone])[address] [place], [place] [address]9-30-2025 14:07-0400Diastolic blood rdylvfim43 mm[Hg]Yomaira Cesar ANODE CREW SUPERVISOR Work Phone: [phone] [place], [place] [address]Olvfmukxbb80-01-4048 14:07-0400Systolic blood whzqedli139 mm[Hg]Yomaira Cesar ANODE CREW SUPERVISOR Work Phone: [phone] [place] [address]-15-2025 15:13-0400Body mass index (BMI) [Ratio]40.21 kg/t2Xuzol Sherwin DO Work Phone: [phone] [place] [address]-15-2025 15:13-0400Body lylrie814.97 kgCorey Sherwin DO Work Phone: [phone] [place] [address]-15-2025 15:13-0400Diastolic blood nfmojcui80 mm[Hg]Layo Sherwin DO Work Phone: [phone] [place] [address]-15-2025 15:13-0400Systolic blood sapkoskp192 mm[Hg]Layo Sherwin DO Work Phone: [phone] [place] [address]-02-2025 10:15-0400Body mass index (BMI) [Ratio]39.47 kg/m9Rfojm Sherwin DO Work Phone: [phone])[facility] [place], [place] [address]Ytkvtaqjjm36-17-8977 10:15-0400Body npornt847.06 kgCorey Sherwin DO Work Phone: [phone] [place] [address]-02-2025 10:15-0400Diastolic blood amingakb34 mm[Hg]Layo Sherwin DO Work Phone: [phone] [place] [address]-02-2025 10:15-0400Systolic blood gymnulqx458 mm[Hg]Layo Sherwin DO Work Phone: 1([phone] [place], [place] [address]Qxyonfiqzp27-61-5016 10:06-0400Body mass index (BMI) [Ratio]38.76 kg/t6Kakly Sherwin DO Work Phone: 1(277)[facility] [place] [address]-18-2025 10:06-0400Body htglem98.25 kgCorey Sherwin DO Work Phone: [phone] [place] [address]-18-2025 10:06-0400Diastolic blood xpnwjekc47 mm[Hg]Layo Sherwin DO Work Phone: 1(198)[facility] [place] [address]-18-2025 10:06-0400Systolic blood xxldqibc909 mm[Hg]Layo Sherwin DO Work Phone: [facility] ServicesQzvkgqygbt98-44-5177 08:33-0400Body mass index (BMI) [Ratio]38.09 kg/e2Fdmob Sherwin DO Work Phone: [phone] [place], [place] [address]Tohzlffkgv53-92-6292 08:33-0400Body .52 kgCorey Sherwin DO Work Phone: [phone] [place], [place] [address]Kkupmtfnuc63-95-7859 08:33-0400Diastolic blood qrxhxqti91 mm[Hg]Layo Sherwin DO Work Phone: [phone] [place], [place] [address]Kbpkinfefd30-67-8946 08:33-0400Systolic blood jpocgulu465 mm[Hg]Layo Sherwin DO Work Phone: [phone] [place], [place] [address]Dhdbbomhxc19-71-5692 14:59-0400Body mass index (BMI) [Ratio]35.59 kg/d0Llqtl Sherwin DO Work Phone: 1(288)[facility] [place], [place] [address]Hioammxgub71-54-4455 14:59-0400Body amoyix97.13 kgCorey Sherwin DO Work Phone: [phone])274-[address] [place], [place] [address]Argzhdvfeo49-76-2129 14:59-0400Diastolic blood hdgogbhe09 mm[Hg]Layo Sherwin DO Work Phone: [phone] [place], [place] [address]Hyaahvqtyu65-80-4729 14:59-0400Systolic blood cxrgykgb929 mm[Hg]Layo Sherwin DO Work Phone: [phone] [place], [place] [address]Wlueiafwmu57-57-7647 13:08-0400Body mass index (BMI) [Ratio]35.52 kg/f6Kauhj Sherwin DO Work Phone: [phone] [place], [place] [address]Snedwlwqwf50-34-2518 13:08-0400Body tcrcci89.95 kgCorey Sherwin DO Work Phone: 1419)[facility] [place], [place] [address]Izqgrdvkdi42-03-3978 13:08-0400Diastolic blood maicpchq07 mm[Hg]Layo Sherwin DO Work Phone: [phone] [place], [place] [address]Jmsvpziufr99-54-5812 13:08-0400Systolic blood urdxcgyh066 mm[Hg]Layo Sherwin DO Work Phone: [facility] ServicesBoqbdbwyph53-49-0217 14:41-0400Body mass index (BMI) [Ratio]35.22 kg/h7Obmuj Sherwin DO Work Phone: [facility] ServicesXupzdtscgu59-92-5168 14:41-0400Body gfatnn44.17 kgCorey Sherwin DO Work Phone: [phone]-[facility] ServicesZromggpvpx97-19-2852 14:41-0400Diastolic blood yuuoagjg75 mm[Hg]Layo Sherwin DO Work Phone: [phone])801-Critical access hospitalSaint [facility] Hospital & Health ServicesFunsijxsrt61-13-8332 14:41-0400Systolic blood wythtvza300 mm[Hg]Layo Sherwin DO Work Phone: [phone] [place], [place] [address]Yuxzsnajhz04-17-7714 15:31-0400Body mass index (BMI) [Ratio]33.17 kg/m2Amy Sissy PA Work Phone: [phone] [place], [place] [address]Cdntjrqntf85-60-6178 15:31-0400Body huuirq67.94 kgAmy Foster PA Work Phone: [phone] [place], [place] [address]Hetjmidnjk46-95-7385 15:31-0400Diastolic blood emtjduyw19 mm[Hg]Brandy Sissy PA Work Phone: [phone] [place], [place] [address]Duhzbcixuc70-62-1554 15:31-0400Systolic blood glcpjbpu560 mm[Hg]Brandy Sissy PA Work Phone: 1([phone])401-Critical access hospital3[facility] ServicesLppokzkmxv07-42-6184 13:08-0400Body mass index (BMI) [Ratio]32.2 kg/f3Ojsmp Sherwin DO Work Phone: [phone] [place], [place] [address]Jscaggkyig29-17-4417 13:08-0400Body dkispe34.46 kgCorey Sherwin DO Work Phone: [phone] [place], [place] [address]Xcvzyioork49-82-9915 13:08-0400Diastolic blood mm[Hg]Layo Sherwin DO Work Phone: [phone])131-Critical access hospital1[facility] ServicesKdixgigakk98-82-3355 13:08-0400Systolic blood nedrdstt338 mm[Hg]Layo Sherwin DO Work Phone: [facility] ServicesQjjkvliqns84-34-4996 09:53-0400Body mass index (BMI) [Ratio]31.18 kg/m2[facility]03-28-2025 09:53-0400Body .83 kgN[facility]03-28-2025 09:53-0400Diastolic blood mm[Hg][facility]03-28-2025 09:53-0400Systolic blood guqkzxmn787 mm[Hg][facility]12-04-2024 14:04-0500Blood Pressure LocationConnerly Jauregui [phone]-AvxuyC[facility] Clinic [facility]12-04-2024 14:04-0500Diastolic blood svdbyydk96 mm[Hg]Malloryly SethiKit Carson [phone]-Zybes[address] [place], [place] 7841712-04-2024 14:04-0500Heart rate80 /chetMallory Juventino [phone]-Zbgfz[address] [place], [place] 7841712-04-2024 14:04-2397KiS2% (BldA) [Mass fraction]100 %Mallory Jauregui [phone]-FogdnC[facility] Clinic Fairview Hospital12-04-2024 14:04-0500Systolic blood ibppdwac852 mm[Hg]Mallory Juventino [phone]-FcsbqC[facility] Clinic [facility]11-19-2024 10:45-0500Diastolic blood dqxlvfek55 mm[Hg]Juan Chavarria MD Work Phone: [facility]11-19-2024 10:45-0500 Heart rate65 /Jael Chavarria MD Work Phone: [facility]11-19-2024 10:45-0500 Respiratory rate17 /Jeal Chavarria MD Work Phone: [facility]11-19-2024 10:45-0500 SaO2% (BldA) [Mass fraction]100 %Juan Chavarria MD Work Phone: 1()[address] [place], [place] 648[address]11-19-2024 10:45-0500 Systolic blood wonwhrop97 mm[Hg]Juan Chavarria MD Work Phone: 1()[address] [place], [place] 6483211-19-2024 09:45-0500 Body bivxsyesxfe88.3 [degF]Juan Chavarria MD Work Phone: 1()[address] [place], [place] 6483211-19-2024 08:29-0500 Body kikftr196 cmJuan Chavarria MD Work Phone: 1()[address] [place], [place] 6483211-19-2024 08:29-0500 Body mass index (BMI) [Ratio]29.25 kg/h7FmqutiJuan Chavarria MD Work Phone: 1()[address] [place], [place] 6483211-19-2024 08:29-0500 Body ogrvzb58.9 kgJuan Chavarria MD Work Phone: 1()[address] [place], [place] 6483210-22-2024 09:49-0400 Body nxletvyecdy56.7 [degF]Juan Chavarria MD Work Phone: 1()[address] [place], [place] 6483210-22-2024 09:49-0400 Diastolic blood ekjdjcpf26 mm[Hg]Juan Chavarria MD Work Phone: 1()[address] [place], [place] 6483210-22-2024 09:49-0400 Heart rate94 /Jael Chavarria MD Work Phone: 1()[address] [place], [place] 6483210-22-2024 09:49-0400 Respiratory rate22 /Jael Chavarria MD Work Phone: 1()[address] [place], [place] 6483210-22-2024 09:49-0400 SaO2% (BldA) [Mass fraction]100 %Juan Chavarria MD Work Phone: 1()[address] [place], [place] 6483210-22-2024 09:49-0400 Systolic blood borypcbz462 mm[Hg]Juan Chavarria MD Work Phone: 1()[address] [place], [place] 6483210-22-2024 07:27-0400 Body cmJoseph Aura MD Work Phone: 1()[address] [place], [place] 9255310-22-2024 07:27-0400 Body mass index (BMI) [Ratio]29.41 kg/d9MpogecJuan Chavarria MD Work Phone: 1()[address]10-22-2024 07:27-0400 Body sswiyr04.3 kgJuan Chavarria MD Work Phone: 1()[address]09-26-2024 10:31-0400 Diastolic blood xhvpxzii53 mm[Hg]Leigh Ann Tuttle MD Work Phone: 1()[address]09-26-2024 10:31-0400 Heart rate71 /minLeigh Ann Tuttle MD Work Phone: 1()[address]09-26-2024 10:31-0400 Respiratory rate20 /Imani Tuttle MD Work Phone: 1()[address]09-26-2024 10:31-0400 SaO2% (BldA) [Mass fraction]100 %Leigh Ann Tuttle MD Work Phone: 1()[address]09-26-2024 10:31-0400 Systolic blood buszmiwj100 mm[Hg]Leigh Ann Tuttle MD Work Phone: 1()[address]09-26-2024 09:31-0400 Body gvzmdnkuzfg44.1 [degF]Leigh Ann Tuttle MD Work Phone: 1()[address]09-26-2024 08:48-0400 Body cmLeigh Ann Tuttle MD Work Phone: 1()[address]09-26-2024 08:48-0400 Body mass index (BMI) [Ratio]29.21 kg/q4KceflpvLeigh Ann Tuttle MD Work Phone: 1()[address]09-26-2024 08:48-0400 Body vacvcl33.8 kgLeigh Ann Tuttle MD Work Phone: 1()[phone]09-12-2024 10:52-0400 Body mass index (BMI) [Ratio]29.43 kg/m2Brandy Sissy PA Work Phone: [facility] ServicesZexqdvhqow88-24-9908 10:52-0400Body qocyvx39.35 kgBrandy Sissy PA Work Phone: [facility] ServicesQpqbiyefkh72-71-7301 10:52-0400Diastolic blood xglgnfuk85 mm[Hg]Brandy Sissy PA Work Phone: [facility] ServicesQdhyadpuuj24-00-6494 10:52-0400Systolic blood mm[Hg]Brandy Sissy PA Work Phone: [facility] ServicesVrbgxyfdvi19-57-7913 10:09-0400Body rsofbe029 cm Juan Chavarria MD Work Phone: 1(216)[address]08-26-2024 10:09-0400 Body mass index (BMI) [Ratio]30.11 kg/b8XhpeouJuan Chavarria MD Work Phone: 1(216)[address] [place], [place] 6483208-26-2024 10:09-0400 Body gmcupz12.11 kgJuan Chavarria MD Work Phone: 1()[address] [place], [place] 6483208-26-2024 10:09-0400 Diastolic blood mfyncgol40 mm[Hg]Juan Chavarria MD Work Phone: 1(216)[address] [place], [place] 6483208-26-2024 10:09-0400 Heart rate62 /minJuan Chavarria MD Work Phone: 1(216)[address] [place], [place] 6483208-26-2024 10:09-0400 Systolic blood iabazkcc152 mm[Hg]Juan Chavarria MD Work Phone: 1(216)[address] [place], [place] 6483208-09-2024 08:46-0400 Body eqwxsr065 cmAruslan Thorpe APRN-CUT IN WORKER Work Phone: 1(216)[address] [place], [place] 6483208-09-2024 08:46-0400 Body mass index (BMI) [Ratio]29.23 kg/f5JonvxlTrish Thorpe APRN-CUT IN WORKER Work Phone: [facility]08-09-2024 08:46-0400 Body iraukv33.84 kgTrish Thorpe APARTMENT LOCATOR-CUT IN WORKER Work Phone: [facility]08-09-2024 08:46-0400 Diastolic blood qcsvpedr20 mm[Hg]Trish Thorpe APARTMENT LOCATOR-CUT IN WORKER Work Phone: [facility]08-09-2024 08:46-0400 Heart rate72 /minTrish Thorpe APARTMENT LOCATOR-CUT IN WORKER Work Phone: [facility]08-09-2024 08:46-0400 Systolic blood ykmaiibt772 mm[Hg]Trish Thorpe APARTMENT LOCATOR-CUT IN WORKER Work Phone: [facility]05-31-2024 11:14-0400 Blood Pressure LocationPrincess Rapp [address] [place], [place] 4181505-31-2024 11:14-0400Body thiaceqehdb36.24 [degF]Princess Rapp [phone]-Ixcfa[address] [place], [place] 1674005-31-2024 11:14-0400Diastolic blood bbztoskx94 mm[Hg]Princess Rapp [phone]-Tbnge[address] [place], [place] 1674005-31-2024 11:14-0400Heart rate65 /Sincere Rapp [phone]-Uithe[address] [place], [place] 1674005-31-2024 11:14-4103XgK1% (BldA) [Mass fraction]98 %Princess Rapp [phone]-Mavyb[address] [place], [place] 1674005-31-2024 11:14-0400Systolic blood acfjulpz171 mm[Hg]Princess Rapp [phone]-Rqssb[address] [place], [place] 1674004-25-2024 17:44-0400Blood Pressure LocationPrincess Rapp [phone]-Atsvz[address] [place], [place] 1674004-25-2024 17:44-0400Body pigleqytimi13.06 [degF]Princess Rapp [address] [place], [place] 4181504-25-2024 17:44-0400Diastolic blood buodaniu32 mm[Hg]Princess Rapp [address] [place], [place] 4181504-25-2024 17:44-0400Heart rate85 /Sincere Rapp [address] [place], [place] 4181504-25-2024 17:44-0400Respiratory rate14 /Sincere Rapp [address] [place], [place] 4181504-25-2024 17:44-7296NpT6% (BldA) [Mass fraction]99 %Princess Rapp [address] [place], [place] 4181504-25-2024 17:44-0400Systolic blood czbozjma659 mm[Hg]Princess Rapp [address] [place], [place] 4181510-19-2023 07:41-0400Body .7 [degF]Princess Rapp [address] [place], [place] 4181510-19-2023 07:41-0400Diastolic blood tibdfnvu77 mm[Hg]Princess Rapp [address] [place], [place] 4181510-19-2023 07:41-0400Heart rate81 /Sincere Rapp [address] [place], [place] 4181510-19-2023 07:41-7250SaY8% (BldA) [Mass fraction]99 %Princess Rapp [address] [place], [place] 4181510-19-2023 07:41-0400Systolic blood jxitgjje591 mm[Hg]Princess Rapp [address] [place], [place] 4181503-23-2022 16:57-0400Blood Pressure LocationLeigh Ann Covington [phone]-VsbzdC[facility] 03-23-2022 16:57-0400Body iuumwamlgtd65.7 [degF]Leigh Ann Covington [phone]-IvexuCincinnati [facility] 03-23-2022 16:57-0400Diastolic blood szkqucup56 mm[Hg] Leigh Ann Covington [phone]-KsetnC[facility] 03-23-2022 16:57-0400Heart rate88 /minLeigh Ann Covington [phone]-JtqmrC[facility]innati [facility] 03-23-2022 16:57-1318WgW6% (BldA) [Mass fraction]99 % Leigh Ann Coving[place] [phone]-RqelxCincinnati Va Medical Center [facility] 03-23-2022 16:57-0400Systolic blood mm[Hg] Leigh Ann Covington [phone]-WrpkhCincinnati [facility] Encounters Encounter DateEncounter TypeCare ProviderFacilityStart: 02-14-2025 End: 66-13-6352qemaqnmwnaHUSTL FAZIONot AvailableStart: 02-14-2025 End: 34-46-1338Yboadxpw flow sheetCorey Sherwin DO Work Phone: NOMS David OBGYNComment on above:Third trimester ([facility]); 37 weeks gestation of ([facility])Start: 02-14-2025 End: 51-73-4207Uovwit flowsheetCorey Sherwin DO Work Phone: NOMS Lith[place] OBGYNStart: 02-14-2025 End: 18-20-0904Wsrrlt flowsheetCorey Sherwin DO Work Phone: NOMS [place] OBGYNStart: 02-07-2025 End: 72-89-3295Tjlpej flowsheetKristina Cesar ANODE CREW SUPERVISOR Work Phone: NOMS David OBGYNStart: 02-07-2025 End: 64-44-5055Vmjwae flowsheetKristina Cesar ANODE CREW SUPERVISOR Work Phone: NOMS David OBGYNStart: 02-07-2025 End: 96-17-2287Olutlnfob Result EncounterCorey Sherwin DO Work Phone: NOMS External Department UnsolicitedStart: 02-07-2025 End: 36-87-9987Tgrjiggt flow sheetKristina Cesar ANODE CREW SUPERVISOR Work Phone: NOMS David OBGYNComment on above:Third trimester ([facility]); 36 weeks gestation of ([facility])Start: 02-07-2025 End: 69-57-7171zhktdxmzuwFZWYRXAM EBERLYNot AvailableStart: 02-01-2025 End: 29-66-3427Zutfznwed Result EncounterCorey Sherwin DO Work Phone: NOMS External Department UnsolicitedStart: 02-01-2025 End: 98-74-6512Bvpkzxzxc Result EncounterCorey Sherwin DO Work Phone: NOMS External Department UnsolicitedStart: 01-31-2025 End: 57-62-6955Ryhzzy flowsheetKristina Cesar ANODE CREW SUPERVISOR Work Phone: NOMS David OBGYNStart: 01-31-2025 End: 28-33-6209Bvxjmk flowsheetKristina Cesar ANODE CREW SUPERVISOR Work Phone: NOMS [place] OBGYNStart: 01-31-2025 End: 72-10-9981wvmidrfdfoNLPTUTFI EBERLYNot AvailableStart: 01-31-2025 End: 22-56-9241Wbhrpwkq flow sheetMaryloufaraz Cesar ANODE CREW SUPERVISOR Work Phone: NOIU Lithia OBGYNComment on above:Third trimester ([facility]); 35 weeks gestation of ([facility]); Encounter for in vitro fertilizationStart: 01-25-2025 End: 92-97-6477Tehaxvqbm Result EncounterCorey Sherwin DO Work Phone: NOAU External Department UnsolicitedStart: 01-25-2025 End: 15-18-1249Ctxwwrbps Result EncounterCorey Sherwin DO Work Phone: NODX External Department UnsolicitedStart: 01-24-2025 End: 55-85-8198Fanlulilr Result EncounterCorey Sherwin DO Work Phone: NOPW External Department UnsolicitedStart: 01-24-2025 End: 43-31-7748Tcuombmlq Result EncounterCorey Sherwin DO Work Phone: NOPY External Department UnsolicitedStart: 01-18-2025 End: 72-93-8036Wqyttpyix Result EncounterCorey Sherwin DO Work Phone: NOFQ External Department UnsolicitedStart: 01-18-2025 End: 59-88-3710Oyzcvncpj Result EncounterCorey Sherwin DO Work Phone: noms External Department UnsolicitedStart: 01-16-2025 End: 21-09-9558Hbdxqsee flow sheetCorey Sherwin DO Work Phone: NONX David OBGYNComment on above:33 weeks gestation of ([facility]); Third trimester ([facility]); Group B streptococcal infection; resulting from in vitro fertilization in first trimester ([facility]) Start: 01-16-2025 End: 10-05-2828ohihszwtucDECIQ FAZIONot AvailableStart: 01-16-2025 End: 20-03-0364Kmdevh flowsheetCorey Sherwin DO Work Phone: NOMS [facility] OBGYNStart: 01-16-2025 End: 76-07-0553Yctmkw flowsheetCorey Sherwin DO Work Phone: NOMS Marieue OBGYNStart: 01-10-2025 End: 64-50-4705Zvqmstlwq Result EncounterCorey Sherwin DO Work Phone: NOMS External Department UnsolicitedStart: 01-10-2025 End: 76-37-0073Knmfdyhwe Result EncounterCorey Sherwin DO Work Phone: NOMS External Department UnsolicitedStart: 01-03-2025 End: 70-53-4705Rbtdhv flowsheetCorey Sherwin DO Work Phone: NOMS Marieue OBGYNStart: 01-03-2025 End: 17-01-1124Elhbjt flowsheetCorey Sherwin DO Work Phone: NOMS Marieue OBGYNStart: 01-03-2025 End: 83-46-7985Uaydvtbg flow sheetCorey Sherwin DO Work Phone: NOMS David OBGYNComment on above:Third trimester ([facility]); 31 weeks gestation of ([facility]); resulting from in vitro fertilization in third trimester ([facility]) Start: 01-03-2025 End: 48-76-2614rbswbgqcevHHAZX FAZIONot AvailableStart: 12-19-2024 End: 39-73-6104Fjmksdpp flow sheetCorey Sherwin DO Work Phone: NOMS Hernandze OBGYNComment on above:29 weeks gestation of ([facility]); Third trimester ([facility]); Leukocytes in urine; Other microscopic hematuriaStart: 12-19-2024 End: 40-83-5821voxkvjthdhHSOOR FAZIONot AvailableStart: 12-06-2024 End: 93-53-5353Edhatf flowsheetCorey Sherwin DO Work Phone: NOMS Marieue OBGYNStart: 12-06-2024 End: 82-84-8500Ggarya flowsheetCorey Sherwin DO Work Phone: NODQ David OBGYNStart: 12-06-2024 End: 68-75-9314Odzpfajru Result EncounterCorey Sherwin DO Work Phone: noms External Department UnsolicitedStart: 12-06-2024 End: 14-04-2604Wwrlvggu flow sheetCorey Sherwin DO Work Phone: NOOY Lithia OBGYNComment on above:27 weeks gestation of ([facility]); Second trimester ([facility])Start: 12-06-2024 End: 42-97-0892sugijtjrnsTZNUZ FAZIONot AvailableStart: 11-26-2024 End: 05-16-2618Ywwbdhemj Result EncounterCorey Sherwin DO Work Phone: noms External Department UnsolicitedStart: 11-26-2024 End: 66-78-3862Yjugffscc Result EncounterCorey Sherwin DO Work Phone: noms External Department UnsolicitedStart: 11-08-2024 End: 72-62-8370Qnzjjwzr flow sheetCorey Sherwin DO Work Phone: NOMS BCP OBComment on above:Second trimester ([facility]); 26 weeks gestation of ([facility]); Diabetes mellitus screeningStart: 11-08-2024 End: 09-63-4178osrfxggkhzRXBLW FAZIONot AvailableStart: 10-17-2024 End: 49-16-0868Ceviqf flowsheetCorey Sherwin DO Work Phone: NOMS BCP OBStart: 10-17-2024 End: 03-77-6476Cdoknt flowsheetCorey Sherwin DO Work Phone: NOMS BCP OBStart: 10-17-2024 End: 84-53-1392Ilujbwfn flow sheetCorey Sherwin DO Work Phone: NOMS BCP OBComment on above:Acute bilateral low back pain without sciatica (Primary Dx); Second trimester ([facility]); 20 weeks gestation of ([facility])Start: 10-17-2024 End: 02-12-5689kgcjubecrnBHDBU FAZIONot AvailableStart: 10-11-2024 End: 77-49-6111Yorzwvto flow sheetCorey Sherwin DO Work Phone: NOXH BCP OBComment on above:Second trimester ; 19 weeks gestation of ; PruritusStart: 10-11-2024 End: 57-03-7933glkibueplpHSSIV FAZIONot AvailableStart: 10-11-2024 End: 41-75-0214Uybwue flowsheetCorey Sherwin DO Work Phone: NOMS BCP OBStart: 10-11-2024 End: 60-78-6911Kfpcgc flowsheetCorey Sherwin DO Work Phone: NOEU BCP OBStart: 10-11-2024 End: 90-69-4808Msywpfjec Result EncounterCorey Sherwin DO Work Phone: NOYW External Department UnsolicitedStart: 10-07-2024 End: 59-20-3321Cyfsyqnvp Result EncounterCorey Sherwin DO Work Phone: noms External Department UnsolicitedStart: 10-07-2024 End: 44-18-8700Kghkqlidz Result EncounterCorey Sherwin DO Work Phone: noms External Department UnsolicitedStart: 10-07-2024 End: 93-94-8359Tggzsmyfjj hospital visit by physicianMac Gtb112 Obgynimg Ultrasound 1 Val[facility] Chanel PavilionComment on above: ([facility]) Start: 10-07-2024 End: 19-12-7462cfpzndjoehLPMXS VINH EVAMadison Healthtart: 09-22-2024 End: 10-44-6550rptthvhkkmLLW RAMEYNot AvailableStart: 09-06-2024 End: 58-88-0914Qaunqwle flow sheetBrandy SEARS Work Phone: NOMS BCP OBComment on above:STD exposure; Second trimester ; 14 weeks gestation of ; Screening, , for anatomic surveyStart: 09-06-2024 End: 44-83-6115xvlcbbzcmgWUH RAMEYNot AvailableStart: 09-06-2024 End: 32-90-4541Idcvgr flowsheetBrandy SEARS Work Phone: NOMS BCP OBStart: 09-06-2024 End: 83-72-1340Vrcqox flowsheetBrandy SEARS Work Phone: NOMS BCP OBStart: 09-06-2024 End: 54-04-7003Wlponbty Result EncounterBrandy SEARS Work Phone: NOMS External Department UnsolicitedStart: 08-29-2024 End: 19-95-5664Uncdozync Result EncounterCorey Sherwin DO Work Phone: NOMS External Department UnsolicitedStart: 08-29-2024 End: 21-01-0459Rvmezdwgu Result EncounterCorey Sherwin DO Work Phone: NOMS External Department UnsolicitedStart: 08-08-2024 End: 38-77-7800Zhsyxg flowsheetCorey Sherwin DO Work Phone: NOMS BCP OBStart: 08-08-2024 End: 62-12-8885Jpdqyx flowsheetCorey Sherwin DO Work Phone: NOMS BCP OBStart: 08-08-2024 End: 01-60-4532Vwxudffm flow sheetCorey Sherwin DO Work Phone: NOMS BCP OBComment on above:10 weeks gestation of ; First trimester pregnancyStart: 08-08-2024 End: 30-02-1634lyuhsblbvjRRCNQ FAZIONot AvailableStart: 07-29-2024 End: 62-39-4150Attkcy outpatient visit 5 minutesNoms Bcp Ob Sherwin NurseNOMS BCP OBComment on above:GA: 7l9bZomcu: 07-29-2024 End: 09-26-5063qckybgrqxlWUSZK FAZIONot AvailableStart: 07-11-2024 End: 17-30-2561Goxdvnl encounter procedureDonya Abernathy SMITH Work Phone: [facility] Chanel PavilionComment on above:Fertility testing (Primary Dx); Encounter to determine viability of , single or unspecified fetus Start: 07-11-2024 End: 58-80-8003rizxalpnqvFSWU L [facility]: 06-30-2024 End: 82-61-6123uqqykykwebEERKLSParkview Health Bryan Hospitaltart: 06-23-2024 End: 15-37-4541yziaokkwjaAasojcrtgxCentervilletart: 06-23-2024 End: 01-48-8114bdrispbybtYVIMVTParkview Health Bryan Hospitaltart: 06-13-2024 End: 74-50-5165Wanelysmmk hospital visit by physicianJuan Chavarria MD Work Phone: Valeria PurcellilionComment on above:Encounter for assisted reproductive fertility cycleStart: 06-13-2024 End: 00-84-7573dhojtxgdagJJEZFS E FINDLEYGood Samaritan Hospitaltart: 06-07-2024 End: 18-46-8187pedbshrydpYEED L [facility] Hospitalt[facility]: 06-06-2024 End: 18-81-6558wagcajqllrSipvovlyzzCentervilletart: 06-06-2024 End: 50-30-4983Tauylioixoen / ancillary services managementMac Edjla683 Kelsy UltrasoundQuail Run Behavioral Health WestComment on above:Female infertility Start: 06-06-2024 End: 55-06-4426kxbddyzhpmOCQI L [facility] Hospitaltart: 05-23-2024 End: 08-08-2697uyioovafarXLQKWYAdams County Hospitaltart: 63-46-3512ptvkvxncqtJqvhto E. NorcrossFacility:Jessica PCStart: 04-06-2024 End: 31-65-7555Kosdrcw encounter Robert Jauregui [phone]-HbwqmCincinnati [facility] Start: 03-22-2024 End: 77-25-2159Guixttewcb hospital visit by Pricilla Chavarria MD Work Phone: [facility] PavilionComment on above:Encounter for assisted reproductive fertility cycleStart: 03-22-2024 End: 63-25-4947ajmgtkdlijPWGGCQ E FINDLEYGood Samaritan Hospitaltart: 03-21-2024 End: 22-65-4145olnstffbtnFIDRGA [facility] Hospitaltart: 03-20-2024 End: 43-10-3272Zpzfljkwgwvl / ancillary services managementMac [id number] Kelsy UltrasoundUH Shaw Risman PavilionComment on above:Female infertilityStart: 03-20-2024 End: 85-10-8652dubcolvkboJFFT L [facility] Hospitaltart: 03-19-2024 End: 00-62-8636Utfzpupfcvwg / ancillary services managementMac Igz244 Kelsy UltrasoundUH Shaw Risman PavilionComment on above:Female infertilityStart: 03-19-2024 End: 89-78-7745pwfqgvltmyOTSM L [facility] Hospitaltart: 03-17-2024 End: 26-15-3257gvacnpttnnCOZLWAParkview Health Bryan Hospitaltart: 03-17-2024 End: 32-88-5922Hhlstpdfcuke / ancillary services managementMac [id number] Kelsy UltrasoundUH [facility]isman PavilionComment on above:Female infertilityStart: 03-17-2024 End: 25-47-0750fwfgayrhmjAXXF L [facility] Hospitaltart: 03-15-2024 End: 50-00-5714vftldcmruiUDBNNZAdams County Hospitaltart: 03-15-2024 End: 15-47-6667nflebglbgkKXQU Melly [facility]tart: 03-15-2024 End: 83-82-1913Kfyldogatdmx / ancillary services managementMac Waj082 Kelsy UltrasoundUH Valeria Chanel PavilionComment on above:Female infertilityStart: 03-09-2024 End: 14-19-5790oorfvtekkjEBNGCNParkview Health Bryan Hospitaltart: 03-09-2024 End: 79-93-8824Jjahjfs encounter statusMac [facility] CenterStart: 03-09-2024 End: 69-57-4680Voqagczwhafb / ancillary services managementMac [id number] Kelsy UltrasoundUH Shaw Risfadi PavilionComment on above:Female infertility; Pre-procedure lab examStart: 03-09-2024 End: 39-20-0914uslskrzmksQJCI R [facility] Hospitaltart: 02-23-2024 End: 96-34-4182Eihpwxdimx hospital visit by Pricilla Chavarria MD Work Phone: [facility] PavilionComment on above:Encounter for assisted reproductive fertility cycleStart: 02-23-2024 End: 95-47-8654qwdexuibthLDUQMK E FINDLEYGood Samaritan Hospitaltart: 02-22-2024 End: 58-27-0762ndychzkrtbPSNVLEParkview Health Bryan Hospitaltart: 02-21-2024 End: 24-40-8171Qernqystojpz / ancillary services managementMac [id number] Kelsy UltrasoundUH Shawmarilia Chanel PavilionComment on above:Female infertilityStart: 02-21-2024 End: 19-15-8491jhfvpljcnsKRGC R [facility] Hospitaltart: 02-20-2024 End: 87-17-2421xikkrtzehpZDWYFGAdams County Hospitaltart: 02-20-2024 End: 75-22-9803Ijgqhbagnaab / ancillary services managementMac [id number] Kelsy UltrasoundUH [facility]isfadi PavilionComment on above:Female infertilityStart: 02-20-2024 End: 31-57-6577babzaftsadICVO R [facility] Hospitaltart: 02-18-2024 End: 35-88-0640sdklcdvjubFNROKGParkview Health Bryan Hospitaltart: 02-18-2024 End: 35-49-8637Ccjgymsveyrp / ancillary services managementMac [id number] Kelsy [facility]eria Saeedfadi PavilionComment on above:Female infertilityStart: 02-18-2024 End: 62-91-4063cfslvsgqwdBHRM R [facility] Hospitaltart: 02-16-2024 End: 18-50-9975Rrrdddmafqea / ancillary services managementMac Djebx819 Kelsy [facility] WestComment on above:Female infertility Start: 02-16-2024 End: 80-82-0489ekiqustnxwPOFTUniversity Hospitals Portage Medical Centertart: 02-09-2024 End: 17-49-2829Fgipwdk encounter statusMac [facility] CenterStart: 02-09-2024 End: 85-72-5351Jlpymrrjvwfr / ancillary services managementMac Zduqm454 Kelsy [facility] WestComment on above:Pre-procedure lab exam; Female infertilityStart: 02-09-2024 End: 03-33-0608afdqhrpfleIITO R [facility] Hospitaltart: 02-02-2024 End: 09-01-5713pmgjcisszoSDRMKGAdams County Hospitaltart: 01-28-2024 End: 90-23-4088Hpsxymnmli hospital visit by physicianLeigh Ann Tuttle MD Work Phone: [facility] Chanel PavilionComment on above: Endometrial polypStart: 01-28-2024 End: 59-09-5597maxiaogsluBIVLNND D [facility] Campustart: 01-25-2024 End: 47-51-2416ymmmhkfdoaAZJKJQAdams County Hospitaltart: 01-25-2024 End: 21-31-6016Ghyoqpyed for preprocedural laboratory examinationSelect Medical Specialty Hospital - [facility] Southtart: 01-14-2024 End: 39-86-5107Ljqfmg Prabha SEARS Work Phone: NOOR BCP OBStart: 01-14-2024 End: 08-58-3402Qgissj flowsheetBrandy Sheehan [place] Work Phone: noms BCP OBStart: 01-14-2024 End: 31-22-6092Qcstsziej Result EncounterBrandy Sheehan [place] Work Phone: noms External Department UnsolicitedStart: 01-14-2024 End: 28-66-7385Kiraqds encounter procedureBrandy Sheehan [facility] Work Phone: [facility] Work Phone: Start: 01-14-2024 End: 17-88-5552Ostaobcv preventive med est patient 18-39 yrsAmy Sissy ORION Work Phone: [facility] OBComment on above:Well woman exam with routine gynecological examStart: 12-28-2023 End: 76-49-2806Xmgaems encounter procedureJuan Chavarria MD Work Phone: uh [facility] WestComment on above: Fertility testing [Z31.41] (Primary Dx); 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 [Z31.81, N97.8]Start: 12-28-2023 End: 55-26-8224fhrqqlgoboKRATPS E FINDLEYGood Samaritan Hospitaltart: 12-25-2023 End: 50-15-4621ltdckyvkvoNULDWP I [facility]ertart: 2023 End: 61-40-3678dqhjobtyjzESVXNW BROWNGood Samaritan Hospitaltart: 2023 End: 68-06-9829Wwnugyx encounter procedureTrish Thorpe APARTMENT LOCATOR-CUT IN WORKER Work Phone: uh [facility] WestComment on above: Encounter for screening for other viral diseases (Primary Dx); Encounter for Rh blood typing; Screening for STDs (sexually transmitted diseases); Genetic screening; Fertility testing; Female infertility associated with male factorsStart: 2023 End: 00-32-2523Zkynbgs encounter statusTrish Thorpe APARTMENT LOCATOR-CUT IN WORKER Work Phone: [facility] Work Phone: Start: 2023 End: 51-86-7445gusvkzkrcsHEWGXM M [facility] Hospitaltart: 2023 End: 10-59-0696Ujqmyxopu for blood typingTRISH Polo [facility] Hospitaltart: 52-60-0663uspsatgqijEfcpycgsv L Clark [facility]: 10-02-2023 End: 42-66-9939vzhkpmevipLpjvgcwce L ClarkFacility[facility] [facility]Start: 10-02-2023 End: 05-62-9270Qjfrqbr encounter procedurePrincess Rapp [phone]-QjdvoC[facility] Start: 08-27-2023 End: 93-78-8746qhdtlequxiMfvuqasdj L ClarkFacility:[place] PCStart: 08-27-2023 End: 08-75-9398Xmjning encounter procedurePrincess Rapp [phone]-WatjzC[facility] Start: 03-25-2023 End: 89-31-8361Svyxgmh encounter procedurePrincess Rapp [phone]-FbxuaCincinnati [facility] Start: 02-19-2023 End: 52-24-0314Djwllsl encounter procedurePrincess Rapp [phone]-TssqtCincinnati [facility] Start: 07-26-2022 End: 01-21-1921ubddqpahwoGP LAYO SHERWIN .Facility:T2Nrqge: 07-23-2022 End: 69-25-9433nnlgwlxdkjBB LAYO SHERWIN .Facility:X2Fmugc: 07-24-2021 End: 87-24-0366Lvuqitk encounter procedureLeigh Ann Covington [phone]-NaqicCincinnati Va [facility] Center [facility] Procedures DateProcedureProcedure DetailPerforming ClinicianStart: 42-31-0225Anxcq dip stick/tablet rgnt non-auto w/o micrscpCorey Sherwin DO Work Phone: Start: 31-90-9376BC OB BPP W NON-STRESSCorey Sherwin DO Work Phone: Start: 52-84-5566Afgzt dip stick/tablet rgnt non-auto w/o micrscpKristina Cesar ANODE CREW SUPERVISOR Work Phone: Start: 59-74-8446FQ OB BPP W NON-STRESSCorey Sherwin DO Work Phone: Start: 70-03-1475CS OB GROWTHCorey Sherwin DO Work Phone: Start: 45-57-5742Kcupu dip stick/tablet rgnt non-auto w/o micrscpKristina Cesar ANODE CREW SUPERVISOR Work Phone: Start: 55-19-7427AO OB BPP W NON-STRESSCorey Sherwin DO Work Phone: Start: 87-66-8913GP OB BPP W NON-STRESSCorey Sherwin DO Work Phone: Start: 80-78-3357BQ OB BPP W NON-STRESSCorey Sherwin DO Work Phone: Start: 97-10-4681Piicz dip stick/tablet rgnt non-auto w/o micrscpCorey Sherwin DO Work Phone: Start: 97-15-4434PE OB BPP W NON-STRESSCorey Sherwin DO Work Phone: Start: 32-13-3240Siesz dip stick/tablet rgnt non-auto w/o micrscpCorey Sherwin DO Work Phone: Start: 06-87-8804Dfark dip stick/tablet rgnt non-auto w/o micrscpCorey Sherwin DO Work Phone: Start: 14-91-3965VHTSITA TOLERANCE 3 HOURCorey Sherwin DO Work Phone: Start: 29-57-9299Usetv dip stick/tablet rgnt non-auto w/o micrscpCorey Sherwin DO Work Phone: Start: 03-51-5162QPP CBC WITH AUTO DIFFCorey Sherwin DO Work Phone: Start: 92-09-6785Oxwvc dip stick/tablet rgnt non-auto w/o micrscpCorey Sherwin DO Work Phone: Start: 18-22-4813Xvqjx dip stick/tablet rgnt non-auto w/o micrscpCorey Sherwin DO Work Phone: Start: 52-46-1706IKU CBC WITH AUTO DIFFCorey Sherwin DO Work Phone: Start: 58-03-4171Dv preg uterus w/detail kehinde 1st gestationCorey Vinh Sherwin DO Work Phone: Start: 03-73-3593Wv preg uterus w/detail kehinde 1st gestationCorey Sherwin DO Work Phone: Start: 90-84-1100RQPNKYWPY VAGINITIS (HTRX)Brandy SEARS Work Phone: Start: 54-51-3380Obunu dip stick/tablet rgnt non-auto w/o micrscpAmy Sissy SEARS Work Phone: Start: 39-64-7366WZB CBC WITH AUTO DIFFCorey Sherwin DO Work Phone: Start: 43-52-1882Mxrve dip stick/tablet rgnt non-auto w/o micrscpCorey Sherwin DO Work Phone: Start: 07-29-2024 End: 56-97-5802Rwfcd dip stick/tablet rgnt non-auto w/o micrscpCorey Sherwin DO Work Phone: Start: 02-65-2811Daimhg transfer intrauterineBeti Warren MD Work Phone: Start: 04-18-7183Ksevrfxeuu guidance intraoperative Beti Warren MD Work Phone: Start: 34-71-6542Jq pelvic nonobstetric image dcmtn limited/f/uMary L Josemanuel APARTMENT LOCATOR-CUT IN WORKER Work Phone: [phone]: 29-04-3240Pggbwhha puncture oocyte retrieval any methodDonya Pickard Josemanuel APARTMENT LOCATOR-CUT IN WORKER Work Phone: [phone]: 68-64-2327Ft pelvic nonobstetric image dcmtn limited/f/uMary L Josemanuel APARTMENT LOCATOR-CUT IN WORKER Work Phone: [phone]: 78-00-9098Jatyr of estradiolDawn R Dwight APARTMENT LOCATOR-CUT IN WORKER Work Phone: [phone]: 69-38-5182Ba pelvic nonobstetric image dcmtn limited/f/uMary L Josemanuel APARTMENT LOCATOR-CUT IN WORKER Work Phone: [phone]: 15-26-9093Pl pelvic nonobstetric image dcmtn limited/f/uMary L Josemanuel APARTMENT LOCATOR-CUT IN WORKER Work Phone: [phone]: 18-02-0392Pzere of estradiolMary L Josemanuel APARTMENT LOCATOR-CUT IN WORKER Work Phone: [phone]: 12-47-5965Ke pelvic nonobstetric image dcmtn limited/f/uMary L Josemanuel APARTMENT LOCATOR-CUT IN WORKER Work Phone: [phone]: 85-66-6445Kmcff of estradiolMary L Josemanuel APARTMENT LOCATOR-CUT IN WORKER Work Phone: [phone]: 57-03-7224Nj pelvic nonobstetric image dcmtn limited/f/uDawn R Dwight APARTMENT LOCATOR-CUT IN WORKER Work Phone: [phone]: 42-51-5017Xvxkd count hematocritMary L Josemanuel APARTMENT LOCATOR-CUT IN WORKER Work Phone: [phone]: 29-45-1647Nnisccos puncture oocyte retrieval any Sherice Warren MD Work Phone: Start: 92-07-7932Op pelvic nonobstetric image dcmtn limited/f/uDawn R Dwight APARTMENT LOCATOR-CUT IN WORKER Work Phone: Start: 39-10-4662Uuuewitkotwz luteinizing hormone Beti Warren MD Work Phone: [phone]: 49-84-0172Wl pelvic nonobstetric image dcmtn limited/f/uDawn R Dwight APARTMENT LOCATOR-CUT IN WORKER Work Phone: [phone]: 13-37-1964Pxbrg of estradiolDawn R Dwight APARTMENT LOCATOR-CUT IN WORKER Work Phone: Start: 94-30-4462Qyhee of estradiolDawn R Dwight APARTMENT LOCATOR-CUT IN WORKER Work Phone: Start: 18-43-4376Bmrpl count hematocritDawn R Dwight APARTMENT LOCATOR-CUT IN WORKER Work Phone: Start: 24-80-1323Qn pelvic nonobstetric image dcmtn limited/f/uDawn R Dwight APARTMENT LOCATOR-CUT IN WORKER Work Phone: Start: 32-50-0084Iwedakzzfzpe bx endometrium&/polypc w/wo d&cJoseph Sera Chavarria MD Work Phone: Start: 74-22-5377Wzmtb test visual color cmprsn Celina Tuttle MD Work Phone: Start: 53-83-1470EXZ,APTIMA HPV,AGE GDLNAmy Sissy ORION Work Phone: Start: 71-10-3118Otkdkforexl observation [Identifier] in Cervix by Cyto stainLeigh Ann Tuttle MD Work Phone: Start: 15-36-1944Nsjpo Knee Arthroscopy with Medial Meniscal RepairLeigh Ann Covington Start: 12-12-6094qafuf knee anterior cruciate ligament allograft reconstruction with jjyn-bhgvkp-jlxz, debridment medial meniscus tear, patellofemoral chondroplasty-Grade I-IILeigh Ann Covington TonsillectomyLeigh Ann Covington tubes in the earsLeigh Ann Covington Plan of Treatment DateCare ActivityDetailAuthorStart: 64-70-0174OJR High Risk: (Elderly (60+) or Population) (1 - 1-dose 75+ series)RSV High Risk: (Elderly (60+) or Population) (1 - 1-dose 75+ series)[facility] Start: 04-41-6926Pqktza Vaccines (1 of 2)Zoster Vaccines (1 of 2)[facility] HospitalStart: 31-04-6306Cgdwxdphv for malignant neoplasm of cervixUnWadsworth-Rittman Hospital: 02-14-2025 End: 42-55-3590Tweceut encounter hgaejevfs60/14/2025 2:30 PM EDT Routine [facility] [address] [place], [id number] Layo Courtney DO [address] [place] [address] [facility] OBGYNStart: 02-07-2025 End: 93-90-2355Byuufgr encounter procedureNOMS David OBGYNComment on above: ArrivedStart: 01-31-2025 End: 29-69-5098ITZKEIE, GROUP B STREP WITH SUSCEPTIBLITYCULTURE, GROUP B STREP WITH SUSCEPTIBLITY Lab Routine Third trimester ([facility]) Expected: 01/31/2025, Expires: 01/31/2026[facility] Work Phone: comment on above:Expected: 01/31/2025, Expires: 01/31/2026Start: 01-31-2025 End: 33-10-4780PB for pregnancyUS OB follow up transabdominal approach Imaging Routine Encounter for in vitro fertilization Expected: 01/31/2025, Expires: 06/02/2025[facility] HealthcareComment on above:Expected: 01/31/2025, Expires: 06/02/2025Start: 01-31-2025 End: 97-07-4510Wzdbtzs encounter arsztpkto66/30/2025 1:50 PM EDT Routine [facility] TIPTONGYRoxy [address] [place], [id number] Yomaira Guerrero, ANODE CREW SUPERVISOR [address] [place] [address] [facility] OBGYNStart: 01-30-2025 End: 09-97-0002Yiufuyi encounter xnjidgdmk73/29/2025 3:50 PM EDT Routine [facility] ZACARIAS [address] [place], [id number] Yomaira Guerrero, ANODE CREW SUPERVISOR [address] [place] [address] [facility] OBGYNStart: 01-16-2025 End: 54-44-9880Piqevcl encounter procedureNOMS David OBGYNComment on above: ArrivedStart: 01-03-2025 End: 75-53-2805MG biophysical profile w non stress testUS biophysical profile w non stress test Imaging Routine resulting from in vitro fertilization in third trimester ([facility]) Expected: 01/03/2025 (Approximate), Expires: 07/03/2025[facility] Work Phone: comment on above:Expected: 01/03/2025 (Approximate), Expires: 07/03/2025Start: 01-03-2025 End: 61-40-8519Yczrhfv encounter procedureNOMS David OBGYNComment on above: ArrivedStart: 34-86-1500Hzjdosrsa vaccinationInfluenza Vaccine (Season Ended) [facility] HealthcareStart: 12-19-2024 End: 80-23-1263Ynjsptnwctht / ancillary services gtjuvsnare51/18/2025 9:30 AM EDT Ancillary Procedure [facility] [address] [place] [address] [facility] OBGYNStart: 12-19-2024 End: 10-04-6412Srgzjgt encounter procedureNOMS David OBGYNStart: 12-06-2024 End: 46-28-3393Wqxvagv encounter procedureNOMS BCP OBComment on above:Arrived Start: 11-08-2024 End: 14-04-1431Kdpuxgd encounter sxcnezifi73/08/2025 2:40 PM EDT Routine [facility] [address] [place] [address] Layo Courtney, DO [address] [place], [place] [id number] [facility] BCP OBStart: 11-08-2024 End: 74-65-9567IAL panel - Blood by Automated countCBC Lab Routine Diabetes mellitus screening Expected: 11/08/2024 (Approximate), Expires: 11/08/2025[facility] Work Phone: comment on above:Expected: 11/08/2024 (Approximate), Expires: 11/08/2025Start: 11-08-2024 End: 94-34-5388Phxdymgzfrt of glucose 1 hour after glucose challenge for glucose tolerance testGlucose tolerance, 1 hour Lab Routine Diabetes mellitus screening Expected: 11/08/2024 (Approximate), Expires: 11/08/2025[facility] HealthcareComment on above:Expected: 11/08/2024 (Approximate), Expires: 11/08/2025Start: 10-17-2024 End: 17-85-2062Mpqtrag encounter arsxjsftq56/16/2025 1:00 PM EDT Routine [facility] [address] [place] [address] Layo Courtney, DO [address] [place], [place] [id number] [facility]rivedLANCA[facility] OBComment on above: ArrivedStart: 10-11-2024 End: 45-88-0048Kcnqaxm encounter procedureNOSAN [facility]ANC[facility] OBComment on above:Arrived Start: 10-11-2024 End: 48-02-1920Fbgm acids, totalBile acids, total Lab Routine Pruritus Expected: 10/11/2024 (Approximate), Expires: 10/11/2025[facility] HealthcareComment on above: Expected: 10/11/2024 (Approximate), Expires: 10/11/2025Start: 10-11-2024 End: 84-31-4171PJD W Auto Differential panel - BloodCBC and differential Lab Routine Pruritus Expected: 10/11/2024 (Approximate), Expires: 10/11/2025[facility] HealthcareComment on above:Expected: 10/11/2024 (Approximate), Expires: 10/11/2025Start: 10-11-2024 End: 35-31-2535Bdttbuh function 2000 panel - Serum or PlasmaHepatic function panel Lab Routine Pruritus Expected: 10/11/2024 (Approximate), Expires: 10/11/2025[facility] HealthcareComment on above:Expected: 10/11/2024 (Approximate), Expires: 10/11/2025Start: 10-11-2024 End: 22-10-9772Bxefdgdpb C virus Ab [Presence] in Serum or Plasma by Immunoassay Hepatitis C antibody Lab Routine Pruritus Expected: 10/11/2024 (Approximate), Expires: 10/11/2025[facility] Work Phone: comment on above:Expected: 10/11/2024 (Approximate), Expires: 10/11/2025Start: 10-11-2024 End: 71-06-5287Gqzdmlbsoqh [Units/volume] in Serum or PlasmaTSH Lab Routine Pruritus Expected: 10/11/2024 (Approximate), Expires: 10/11/2025[facility] Comment on above:Expected: 10/11/2024 (Approximate), Expires: 10/11/2025Start: 09-06-2024 End: 01-37-7175Tyklvcj encounter procedureNOMS BCP OBComment on above:Arrived Start: 09-06-2024 End: 62-51-4276Jcjib fetoprotein, maternalAlpha fetoprotein, maternal Lab Routine Second trimester Expected: 09/06/2024 (Approximate), Expires: 11/06/2024[facility] HealthcareComment on above:Expected: 09/06/2024 (Approximate), Expires: 11/06/2024Start: 09-06-2024 End: 04-76-9099LQ for pregnancyUS OB 14+ weeks anatomy scan Imaging Routine Screening, , for anatomic survey Expected: 09/06/2024, Expires: 12/07/2024[facility] Healthcare[facility] on above:Expected: 09/06/2024, Expires: 12/07/2024Start: 08-08-2024 End: 29-47-8488Pskpwis encounter procedureNOMS BCP OBComment on above:Arrived Start: 07-29-2024 End: 02-95-7890MQM/RhABO/Rh Lab Routine Missed menses , unspecified gestational age Expected: 07/29/2024 (Approximate), Expires: 07/29/2025[facility] HealthcareComment on above:Expected: 07/29/2024 (Approximate), Expires: 07/29/2025Start: 07-29-2024 End: 24-20-7185Mpphy type and Indirect antibody screen panel - BloodType and screen Lab Routine Missed menses , unspecified gestational age Expected: 07/29/2024 (Approximate), Expires: 07/29/2025[facility] Work Phone: comment on above:Expected: 07/29/2024 (Approximate), Expires: 07/29/2025Start: 07-29-2024 End: 93-33-8704Zspod of abuse panel - Urine by Screen methodRapid drug screen, urine Lab Routine , unspecified gestational age Encounter for supervision of normal first in first trimester Expected: 07/29/2024 (Approximate), Expires: 07/29/2025[facility] Healthcare[facility] on above:Expected: 07/29/2024 (Approximate), Expires: 07/29/2025Start: 07-11-2024 End: 20-25-0529Psvwijhirhnq [Mass/volume] in Serum or PlasmaProgesterone Lab Routine Fertility testing Expected: 07/11/2024 (Approximate), Expires: 07/11/2025[facility] Service Area Work Phone: Comment on above:Expected: 07/11/2024 (Approximate), Expires: 07/11/2025Start: 27-15-4998Qpqikf Only06/23/2024 Orders Only Valeria Hay [address] [place] [phone] Ira Lopez RN Encounter for test, result unknown Valeria HayComment on above:Encounter for test, result unknownStart: 03-20-2024 End: 19-94-9260Olvpfyxd [Units/volume] in Serum or PlasmaLuteinizing Hormone Lab STAT Female infertility Expected: 03/20/2024 (Approximate), Expires: 03/20/2025 [facility] Work Phone: Comment on above:Expected: 03/20/2024 (Approximate), Expires: 03/20/2025Start: 03-20-2024 End: 90-85-2945Pgpvgeestqxe [Mass/volume] in Serum or PlasmaProgesterone Lab STAT Female infertility Expected: 03/20/2024 (Approximate), Expires: 03/20/2025 [facility] Service Area Work Phone: Comment on above:Expected: 03/20/2024 (Approximate), Expires: 03/20/2025Start: 03-20-2024 End: 75-94-7750Nlqvbbrpizsp / ancillary services ypohgqjobx38/17/2024 8:00 AM EST Ancillary Procedure Valeria Hay [address] [place] [address]GL Valeria SimmonsonStart: 03-19-2024 End: 47-27-8350Pkbgyyunwjik / ancillary services tjigxlgsoj37/16/2024 8:30 AM EST Ancillary Procedure Valeria Hay [address] [place], [place] [address]UH [facility] PavilionStart: 03-17-2024 End: 38-20-0612Oxmdkfhci (E2) [Mass/volume] in Serum or PlasmaEstradiol Lab STAT Female infertility Expected: 03/17/2024 (Approximate), Expires: 03/17/2025[facility] Work Phone: Comment on above:Expected: 03/17/2024 (Approximate), Expires: 03/17/2025Start: 03-17-2024 End: 96-22-1611Azkcejliyiux [Mass/volume] in Serum or PlasmaPrem[facility] Health [facility] Work Phone: Comment on above:Expected: 03/17/2024 (Approximate), Expires: 03/17/2025Start: 03-17-2024 End: 94-87-4778Upqgpigbgpla / ancillary services qyxnhtqnti33/14/2024 6:45 AM EST Ancillary Procedure TERRY Hay [address] [place] [address] Valeria SimmonsonStart: 03-15-2024 End: 61-83-3910Mstxdsvvayvf / ancillary services xyddsboimq82/12/2024 6:45 AM EST Ancillary Procedure TERRY Hay [address] [place], [place] [address]UH [facility]eria [facility]el PavilionStart: 03-09-2024 End: 18-78-7933Jnnfddqmxsph / ancillary services fcylcgcbqx88/06/2024 7:15 AM EST Ancillary Procedure TERRY Hay [address] [place], [place] [address]UH Valeria Chanel PavilionStart: 02-23-2024 End: 52-30-2823Kmxrsab encounter ayvmdvtch38/22/2024 8:30 AM EDT Appointment TERRY Hay [address] [place] [phone] Juan Chavarria MD [address] [place] [address] [place] [address] [address]rader Department of Anesthesiology and [place] [address] [facility] Darío PavilionStart: 02-21-2024 End: 58-08-4164Plgxiqcedykk / ancillary services ibtqracswu95/20/2024 8:30 AM EDT Ancillary Procedure Valeria Simmonson [address] [place], [place] [address]UH Valeria Chanel PavilionStart: 02-20-2024 End: 54-48-1391Cbpndfsqz (E2) [Mass/volume] in Serum or PlasmaEstradiol Lab STAT Female infertility Expected: 02/20/2024 (Approximate), Expires: 02/17/2025[facility] Service Area Work Phone: Comment on above:Expected: 02/20/2024 (Approximate), Expires: 02/17/2025Start: 02-20-2024 End: 93-63-8887Kkbcrlluhrcm [Mass/volume] in Serum or PlasmaProgesterone Lab STAT Female infertility Expected: 02/20/2024 (Approximate), Expires: 02/17/2025 [facility] Work Phone: Comment on above:Expected: 02/20/2024 (Approximate), Expires: 02/17/2025Start: 02-20-2024 End: 16-10-0397Mdqmcarbonxq / ancillary services paaldpowft94/19/2024 8:30 AM EDT Ancillary Procedure Valeria Simmonson [address] [place] [phone] Valeria [facility]el PavilionStart: 02-18-2024 End: 70-51-5117Yopaqfifdpvx / ancillary services vjgghdyopt53/17/2024 7:45 AM EDT Ancillary Procedure Valeria Simmonson [address] [place] [phone] Valeria Chanel PavilionStart: 02-16-2024 End: 08-43-4462Eddimwtcawnn / ancillary services qygscanckw09/15/2024 7:15 AM EDT Ancillary Procedure [facility] [address] [place] [address]: 02-09-2024 End: 49-07-6006Brylqobxjejq / ancillary services kuxnmkupie01/08/2024 7:15 AM EDT Ancillary Procedure [facility] [address] [place] [address]LQHouston [facility]: 01-14-2024 End: 72-28-1980Svbbzin encounter oxtmpyuvy74/12/2024 11:00 AM EDT Office Visit [facility] [address] [place] [phone] Brandy Sheehan PA [address] [place] [address] ArrivedNOMS BCP OBComment on above:ArrivedStart: 01-03-2024 COVID-19 Vaccine ( season)COVID-19 Vaccine ( season) [facility]: 50-19-5432JENLF-19 Vaccine ( season)COVID-19 Vaccine ( season)[facility] Start: 53-80-0983Pzooqyuch vaccinationInfluenza Vaccine (#1)[facility]Start: 12-25-2023 End: 75-01-6988Txrdcaxnlsbm consultation with nqlnkem5612/25/2023 9:00 AM EDT Telemedicine Clinical Support [facility] [address] [place] [address] Afua Julian I, LGC [address] [facility] [place] [address] [facility]: 2023 End: 41-80-1608Uctdiglol trachomatis and Neisseria gonorrhoeae DNA [Identifier] in Unspecified specimen by EDELMIRA with probe detectionUnCleveland Clinic Medina Hospital Work Phone: Comment on above:Expected: 2023 (Approximate), Expires: 12/10/2024Start: 2023 End: 82-52-2206Nzgtmfbas B virus surface Ag [Presence] in Serum or Plasma by ImmunoassayPrem[facility] Health [facility] Work Phone: Comment on above:Expected: 2023 (Approximate), Expires: 12/10/2024Start: 2023 End: 74-03-8126Prjrnuccu C virus Ab [Presence] in SerumPremier Health Miami Valley Hospital Work Phone: Commrzv on above:Expected: 2023 (Approximate), Expires: 12/10/2024Start: 2023 End: 72-63-8990GBP 1+2 Ab+HIV1 p24 Ag [Presence] in Serum or Plasma by ImmunoassayPrem[facility] Health [facility] Work Phone: Comment on above:Expected: 2023 (Approximate), Expires: 12/10/2024Start: 2023 End: 19-69-1323Jrhreyl virus IgG Ab [Units/volume] in SerumNOR[facility] Work Phone: Comment on above:Expected: 2023 (Approximate), Expires: 12/10/2024Start: 2023 End: 54-49-7373Tdtvgxgyl pallidum IgG+IgM Ab [Presence] in Serum by Immunoassay [facility] Work Phone: [place] on above:Expected: 2023 (Approximate), Expires: 12/10/2024Start: 2023 End: 91-55-7982Vmlochxav zoster virus IgG Ab [Presence] in Serum by Immunoassay [facility] Work Phone: Comkzgi on above:Expected: 2023 (Approximate), Expires: 12/10/2024[place]: 79-41-4031TKPSU-19 Vaccine ( season)COVID- 19 Vaccine ( season)[facility]: 71-31-7444RIdY/Tdap/Td Vaccines (2 - Td or Tdap)DTaP/Tdap/Td Vaccines (2 - Td or Tdap)[facility]: 42-30-2797Udjyiuekr for malignant neoplasm of cervixUnWadsworth-Rittman Hospital: 23-04-6368Joncvdhzp B Vaccines (1 of 3 - 19+ 3-dose series)Hepatitis B Vaccines (1 of 3 - 19+ 3-dose series)[facility]: 42-94-4507Eydjwfnzb C screening Hepatitis C ScreeningProMedica Fostoria Community Hospital: 86-35-4358HDQ Vaccines (1 - 3-dose series)HPV Vaccines (1 - 3-dose series)[facility]: 26-93-7714Gwyyoaqrf vaccinationVaricella Vaccines (2 of 2 - 2-dose childhood series)[facility]: 55-34-9562NYY Vaccines (1 of 1 - Standard series)MMR Vaccines (1 of 1 - Standard series) [facility]: 13-68-8341FYI screeningHIV Screening [facility]: 71-45-2787Bxzbd panelLipid Panel [facility]: 58-76-7041Jwdyov Adult PhysicalYearly Adult PhysicalUnCleveland Clinic Medina HospitalBacteria identified in Urine by CultureUrine culture Microbiology Routine Missed menses Ordered: 07/29/2024[facility] HealthcareComment on above:Ordered: 07/29/2024acteria identified in Urine by CultureUrine culture Microbiology Routine Leukocytes in urine Other microscopic hematuria Ordered: 12/19/2024[facility] Work Phone: comment on above:Ordered: 12/19/2024BC W Auto Differential panel - BloodCBC and differential Lab Routine Missed menses , unspecified gestational age Ordered: 07/29/2024[facility] HealthcareComment on above:Ordered: 07/29/2024HLAMYDIA TRACHOMATIS (GENITO/STI)CHLAMYDIA TRACHOMATIS (GENITO/STI) Lab Routine STD exposure Ordered: 09/06/2024[facility] HealthcareComment on above:Ordered: 09/06/2024 End: 35-63-4502Adcicmxdihkiucizzn ( test) [Presence] in UrinePOCT , urine manually resulted Point of Care Testing Routine Once (Lab) for 1 Occurrences starting 02/23/2024 until 02/23/2024[facility] Service Area Work Phone: Comment on above:Once (Lab) for 1 Occurrences starting 02/23/2024 until 02/23/2024 End: 88-19-7692Gnmkzwifetnuugqnyu ( test) [Presence] in UrinePOCT , urine manually resulted Point of Care Testing Routine Once (Lab) for 1 Occurrences starting 03/22/2024 until 03/22/2024[facility] Service Area Work Phone: Comment on above:Once (Lab) for 1 Occurrences starting 03/22/2024 until 03/22/2024 End: 03-70-9936Nwwzkvmnurihshxtxq ( test) [Presence] in UrinePOCT , urine manually resulted Point of Care Testing Routine Once (Lab) for 1 Occurrences starting 06/13/2024 until 06/13/2024[facility] Service Area Work Phone: Comyrgm on above:Once (Lab) for 1 Occurrences starting 06/13/2024 until 06/13/2024ytology Cervical or vaginal smear or scraping study Pap Smear Pathology and Cytology Routine Well woman exam with routine gynecological exam Ordered: 01/14/2024[facility] Work Phone: comment on above:Ordered: 01/14/2024Hemoglobin A1c/Hemoglobin.total in BloodHemoglobin A1c Lab Routine Missed menses , unspecified gestational age Ordered: 07/29/2024[facility] HealthcareComment on above: Ordered: 07/29/2024Hepatitis B virus surface Ag [Presence] in Serum or Plasma by ImmunoassayHepatitis B surface antigen Lab Routine Missed menses , unspecified gestational age Ordered: 07/29/2024[facility] HealthcareComment on above: Ordered: 07/29/2024Hepatitis C virus Ab [Presence] in Serum or Plasma by ImmunoassayHepatitis C antibody Lab Routine Missed menses , unspecified gestational age Ordered: 07/29/2024[facility] HealthcareComment on above:Ordered: 07/29/2024HIV-1/HIV-2 antigen/antibody combination immunoassayHIV-1 and HIV-2 antibodies Lab Routine Missed menses , unspecified gestational age Ordered: 07/29/2024[facility] HealthcareComment on above:Ordered: 07/29/2024Neisseria gonorrhoeae DNA [Presence] in Unspecified specimen by EDELMIRA with probe detection Neisseria gonorrhea DNA probe, direct Lab Routine STD exposure Ordered: 09/06/2024[facility] HealthcareComment on above:Ordered: 09/06/2024Reagin Ab [Presence] in Serum by RPRRPR Lab Routine Missed menses , unspecified gestational age Ordered: 07/29/2024[facility] HealthcareComment on above:Ordered: 07/29/2024REI US Pelvis Limited Follicles - Follicle Studies PerformedREI US Pelvis Limited Follicles - Follicle Studies Performed Imaging Routine Female infertility 02/16/2024 7:17 AM [facility] Work Phone: REI US Pelvis Limited Follicles - Follicle Studies PerformedREI US Pelvis Limited Follicles - Follicle Studies Performed Imaging Routine Female infertility 02/20/2024 9:06 AM [facility] Work Phone: Rubella antibody, IgGRubella antibody, IgG Lab Routine Missed menses , unspecified gestational age Ordered: 07/29/2024[facility] HealthcareComment on above:Ordered: 07/29/2024SURESWAB(R) ADVANCED VAGINITIS PLUS, TMASURESWAB(R) ADVANCED VAGINITIS PLUS, TMA Pathology and Cytology Routine STD exposure Ordered: 09/06/2024[facility] Healthcare Work Phone: comment on above:Ordered: 09/06/2024 End: [id number] pathology [facility] Work Phone: Comment on above:Once (Lab) for 1 Occurrences starting 01/28/2024 until 01/28/2024, 1 completedOnce (Lab) for 1 Occurrences starting 01/28/2024 until 01/28/2024 Immunizations Immunization DateImmunizationNotesCare WylrubvbOikdkuqv64-79-0157jurabbxzmcpop ACWY vaccine, unspecified formulationPrincess aRpp [phone]-CvfqnC[facility]08-19-2010 tetanus toxoid, reduced diphtheria toxoid, and acellular pertussis vaccine, adsorbedElisourav Rapp [phone]-CgrhfCleveland Clinic [facility]08-19-2010 varicella virus vaccineElisourav Rapp [phone]-LgirjCincinnati [facility] Primary CareNEGATED: Highlighted row has not occurred!53-43-2742uoxvycijt virus vaccine, unspecified formulationConnerly Juventino [phone]-TrztvCincinnati Va Medical Center Primary CareNEGATED: Highlighted row has not occurred!35-99-4120dziagepjo virus vaccine, unspecified formulationRadhajuan Interactivo [phone]-RrfmsCincinnati [facility] NEGATED: Highlighted row has not occurred!06-26-2021 SARS-CoV-2 (COVID-19) Ad26 vaccine, recombinantKatJumpOffCampus [phone]-UdegnCincinnati Va [facility] Center [facility] NEGATED: Highlighted row has not occurred!01-29-2021 influenza virus vaccine, unspecified formulationRadhaAavya Healthmehdi Interactivo [phone]-UuccuCincinnati [facility] NEGATED: Highlighted row has not occurred!01-29-2021 SARS-CoV-2 (COVID-19) Ad26 vaccine, recombinantBoxbe [phone]-AyuupCincinnati Va [facility] Center [facility] Care NEGATED: Highlighted row has not occurred!05-03-2019 influenza virus vaccine, live, attenuated, for intranasal useRadhaAavya Healthmehdi Interactivo [phone]-YzzddCincinnati [facility] NEGATED: Highlighted row has not occurred!09-30-2018 influenza virus vaccine, unspecified formulationLeigh Ann Covington [phone]-QenglCincinnati Va [facility] Center [facility] Payers DatePayer CategoryPayerPolicy [id number] Care (Private) [id number] [employer] InsuranceMEDICAL MUTUAL Member Subscriber Plan / Payer (Effective 2022- Present) Name: Peter Romeroroxy Del Real Relation to Subscriber: Self Name: JoseRadhaSydney R Payer ID: Not on file Type: Not on file Address: [address] [id number] [id number] [id number] 2..1.451301.3.579.[id number] 2.1.707893.3.579.2.00883-33-6664Moskumz80836858 2..1.131810.3.579.2.10918-63-2195Bhvwazg75729400 2..1.072136.3.579.2.41448-82-1321Timcmlm21158251 2.0.1.112458.3.579.2.02755-41-7848Lcbkagl81704483 20.1.033934.3.579.2.74628-76-6613Nshqzyh65466849 2.16840.1.259045.3.579.2.065777-34-5917Jofhrby21125794 2.16.840.1.304745.3.579.2.387733-38-5622Vuagyax15796505 2.16840.1.943173.3.579.2.702662-19-3609Fiirugh729150694 2.16840.1.613934.3.579.2.888715-87-4687Rhhkbdw748140242 2.840.1.699484.3.579.2.398778-35-8451Cgzwzyw322129747 2.840.1.351699.3.579.2.774544-41-7324Uxeylyf656234346 2.840.1.070463.3.579.2.662085-32-2158Wsimgfl898052120 2.840.1.542549.3.579.2.699514-41-0237Lwymxbf867372123 2.840.1.368800.3.579.2.967630-52-0016Nwtwqix427875431 2.840.1.724209.3.579.2.569144-54-4481Dbuqkyp293221285 2.840.1.263697.3.579.2.736573-88-8700Gtzsrza871949212 2.840.1.155322.3.579.2.007334-65-1886Rhqbhrj36747071 2.16840.1.150700.3.579.2.389199-51-9974Eakjwzz51441231 2.16840.1.127917.3.579.2.178463-21-0637Gydqvag69921911 2.16840.1.674926.3.579.2.587601-12-5009Kyocain81704021 2.16.840.1.293975.3.579.2.994751-00-9641Nxpekyf07566530 2.16.840.1.744925.3.579.2.039620-91-6505Wgalncr17651174 2.16840.1.739995.3.579.2.630051-90-6194Jmjyhef61451946 2.16840.1.233687.3.579.2.970184-77-2395Evdilcf16581159 2.16840.1.961427.3.579.2.816978-40-5567Raqkdle65099116 2.16840.1.163907.3.579.2.780056-15-6270Srqjvgo13998181 2.840.1.572900.3.579.2.140075-24-1786Uhvklyw87543554 2.16840.1.587689.3.579.2.478788-39-4155Ykwkxho45327388 2.840.1.974494.3.579.2.656184-62-6117Qsalyof27868927 2.16840.1.391038.3.579.2.803350-94-1763Dancugs64481659 2.840.1.876002.3.579.2.215523-28-0617Sxkubeg82474479 2.16840.1.878051.3.579.2.692170-32-9399Hydmemw33796193 2.16840.1.206006.3.579.2.940979-40-5100Sswyhiv37358238 2.16.840.1.986228.3.579.2.039585-56-8569Xxwimtq75323123 2.16840.1.567120.3.579.2.066112-06-0076Hrvcvjh54697365 2.840.1.366304.3.579.2.398775-91-8277Onmmujg36972215 2.16840.1.515141.3.579.2.785900-27-7834Vfnpmad40429071 2.840.1.435529.3.579.2.961227-44-7254Cmxilix19049396 2.840.1.911324.3.579.2.948097-93-6933Dqtsvmi19682575 2.0.1.042893.3.579.2.007052-72-0698Tlmotim62986665 2.840.1.906688.3.579.2.793771-61-4896Kaxesfr47878850 2.0.1.528777.3.579.2.457732-88-6207Wwylkqg05032413 2.0.1.475752.3.579.2.470700-24-5289Wbyinxt63976169 2.0.1.687125.3.579.2.843840-18-4859Jyrrdbp00579267 2.0.1.388141.3.579.2.067561-55-9702Xxpxigm77668469 2.840.1.877923.3.579.2.356718-21-5149Omamkqz17209855 2.840.1.962173.3.579.2.902971-75-4978Wggkdst73707522 2.840.1.647683.3.579.2.206893-96-4324Ksuyvpt20102671 2.840.1.280342.3.579.2.336247-64-5062Ijfqbvi15142855 2.16.840.1.819408.3.579.2.768281-82-4308Fiubvhp38220639 2.16.840.1.809978.3.579.2.840495-20-7961Cwrlpdx78212275 2.16.840.1.551359.3.579.2.996835-66-7830Qwaquar85868699 2.16.840.1.950936.3.579.2.716409-35-6256Eewkszm39153825 2.16.840.1.870445.3.579.2.708057-40-7095Ujunbtq15334481 2.16.840.1.873723.3.579.2.565631-71-4752Fjpepnl03361840 2.16.840.1.352126.3.579.2.791097-80-0315Virmvau0022940 2.16.840.1.500799.3.579.2.072024-03-9603Ioeuuve3804693 2.16.840.1.311115.3.579.2.278127-36-3938Wuecoeh5022362 2.16.840.1.109667.3.579.2.327860-07-4580Ioogesl0985211 2.16.840.1.953915.3.579.2.910565-57-4725Vfsdjmd310328343448 Social History DateTypeDetailFacilityStart: 07-24-2021 End: 49-76-9519Qhcxnga smoking statusNever smoked tobacco (finding)[facility] Start: 05-40-1879Yzbrixu smoking statusNeverZanesville City Hospital [facility] Start: 01-28-2024 End: 25-77-4605Lza Assigned At BirthFemalUC Medical Center [facility] Start: 90-26-3386Qawqrre use and exposureSmokeless tobacco non-userUnC[facility] Clinic [facility] Work Phone: Start: 01-28-2024 End: 69-88-8280Gfqnthraq beverage intakeEx-drinker (finding)[facility] Work Phone: Start: 01-28-2024 End: 11-20-1098Hbahldt of Social functionUnCleveland Clinic [facility] Work Phone: Start: 24-03-8044Vgpeulr CommentOccassionally [facility] Work Phone: Start: 02-37-8348Nny assigned at birthNot on file [facility] Work Phone: Start: 12-01-2023 End: 43-55-3717Rmdqoqqh to SARS-CoV-2 (event)Not sureUnCleveland Clinic Medina HospitalStart: 02-23-2024 End: 36-85-1097Aqljbqntg beverage intakeCurrent drinker of alcohol (finding) [facility] Work Phone: Start: 86-13-3841Bkcruqp CommentBeer 1-2 times per monthSaint Francis Hospital & Health ServicesStart: 12-18-2023 End: 92-79-4420Kiyprkuu to SARS-CoV-2 (event)Unable to assessPremier Health Miami Valley HospitalStart: 03-04-5617KlrkfrjtaNSNK [facility] Medical Equipment Procedure CodeEquipment CodeEquipment Original TextEquipment IdentifierDates [id number]: 03-01-2024 End: 03-09-2024 Functional Status ZlnzVfnwawffrePbzofcEfkbxlfw65-94-1505Bswgbzwgjd StatusN/[facility] Hagp49-41-5721Pbskektmjw StatusN/[facility] Vvzr96-13-8538Nxutxdjfpj StatusN/[facility] Gaop33-93-6382Ofjcxrzlnl StatusN/[facility] Care Clinical Notes 07-24-2021 to 02-14-2025 Note Date & FytxEbcuNdsaikta32-92-6828 History of Present illness Narrative* Mariela Greer, 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 Exam conducted with a security director present. Vitals: Estimated body mass index is 42.07 kg/m as calculated from the following: Height as of 09/17/22: 5' 3 . Weight as of this encounter: 237 lb 8 oz. BP: 110/82 No LMP recorded. Patient is . ASSESSMENT & PLAN ICD-10-CM 1. Third trimester ([facility]) Z34.93 POCT urinalysis dipstick manually resulted 2. 37 weeks gestation of ([facility]) Z3A.37 Return OB: Patient presents today [...] medial meniscus -SBS TONSILLECTOMY documented in this encounterSaint Francis Hospital & Health ServicesJjxtvghvyr70-33-3688 History of Present illness Narrative* Yomaira Guerrero [...] nursing note reviewed. Exam conducted with a security director present. Vitals: Estimated body mass index is 41.88 kg/m as calculated from the following: Height as of 09/17/22: 5' 3 . Weight as of this encounter: 236 lb 6.4 oz. BP: 128/82 No LMP recorded. Patient is . ASSESSMENT & PLAN ICD-10-CM 1. Third trimester ([facility]) Z34.93 2. 36 weeks gestation of ([facility]) Z3A.36 POCT urinalysis dipstick manually resulted [...] of: Yomaira Guerrero NP documented in this encounterSaint Francis Hospital & Health ServicesEhsafptfqa09-21-4728 History of Present illness Narrative* Marilia Elder [...] nursing note reviewed. Exam conducted with a security director present. Vitals: Estimated body mass index is 40.57 kg/m as calculated from the following: Height as of 09/17/22: 5' 3 . Weight as of this encounter: 229 lb. BP: 122/76 No LMP recorded. Patient is . ASSESSMENT & PLAN ICD-10-CM 1. Third trimester ([facility]) Z34.93 CULTURE, GROUP B STREP WITH SUSCEPTIBLITY CULTURE, GROUP B STREP WITH SUSCEPTIBLITY CANCELED: CULTURE, GROUP B STREP WITH SUSCEPTIBLITY 2. 35 weeks gestation of ([facility]) Z3A.35 POCT urinalysis dipstick manually resulted [...] of: Yomaira Guerrero NP documented in this encounterSaint Francis Hospital & Health ServicesHkamxxjpvm04-17-5273 History of Present illness Narrative* Yomaira Guerrero [...] PLAN ICD-10-CM 1. 33 weeks gestation of ([facility]) Z3A.33 POCT urinalysis dipstick manually resulted 2. Third trimester ([facility]) Z34.93 POCT urinalysis dipstick manually resulted 3. Group B streptococcal infection A49.1 4. resulting from in vitro fertilization in first trimester ([facility]) O09.811 Return OB: Patient [...] of: Layo Courtney DO documented in this encounterSaint Francis Hospital & Health ServicesHjnqoeeryg88-91-4392 History of Present illness Narrative* Mariela Greer [...] nursing note reviewed. Exam conducted with a security director present. Vitals: Estimated body mass index is 39.47 kg/m as calculated from the following: Height as of 09/17/22: 5' 3 . Weight as of this encounter: 222 lb 12.8 oz. BP: 118/74 No LMP recorded. Patient is . ASSESSMENT & PLAN ICD-10-CM 1. Third trimester ([facility]) Z34.93 POCT urinalysis dipstick manually resulted 2. 31 weeks gestation of ([facility]) Z3A.31 POCT urinalysis dipstick [...] of: Layo Courtney DO documented in this encounterSaint Francis Hospital & Health ServicesZwtepffwyf57-21-4594 History of Present illness Narrative* Niki Barbosa [...] nursing note reviewed. Exam conducted with a security director present. Vitals: Estimated body mass index is 38.76 kg/m as calculated from the following: Height as of 09/17/22: 5' 3 . Weight as of this encounter: 218 lb 12.8 oz. BP: 116/70 No LMP recorded. Patient is . ASSESSMENT & PLAN ICD-10-CM 1. 29 weeks gestation of ([facility]) Z3A.29 POCT urinalysis dipstick manually resulted 2. Third trimester ([facility]) Z34.93 POCT urinalysis dipstick [...] of: Layo Sherwin, DO documented in this encounterSaint Francis Hospital & Health ServicesTlexgewsly47-53-5842 History of Present illness Narrative* ORION Spence [...] PLAN ICD-10-CM 1. 27 weeks gestation of ([facility]) Z3A.27 POCT urinalysis dipstick manually resulted 2. Second trimester ([facility]) Z34.92 POCT urinalysis dipstick [...] of: Layo Courtney DO documented in this encounterSaint Francis Hospital & Health ServicesArwetrxkla29-26-7630 History of Present illness Narrative* ORION Spence [...] ASSESSMENT & PLAN ICD-10-CM 1. Second trimester ([facility]) Z34.92 POCT urinalysis dipstick manually resulted 2. 26 weeks gestation of ([facility]) Z3A.26 POCT urinalysis dipstick [...] of: Layo Courtney DO documented in this encounterSaint Francis Hospital & Health ServicesNfnhefztmt71-89-0054 History of Present illness Narrative* Yomaira Guerrero [...] nursing note reviewed. Exam conducted with a security director present. Vitals: Estimated body mass index is 35.52 kg/m as calculated from the following: Height as of 5/17/23: 5' 3 . Weight as of this encounter: 200 lb 8 oz. BP: 126/82 No LMP recorded. Patient is . ASSESSMENT & PLAN ICD-10-CM 1. Second trimester ([facility]) Z34.92 POCT urinalysis dipstick manually resulted 2. 20 weeks gestation of ([facility]) Z3A.20 Return OB: Patient [...] of: Layo Courtney DO documented in this encounterSaint Francis Hospital & Health ServicesZdfxvmbovh51-14-3346 History of Present illness Narrative* ORION Spence [...] of: Layo Courtney DO documented in this encounterSaint Francis Hospital & Health ServicesGusdpszoqv11-67-8814 History of Present illness Narrative* ORION Spence [...] behalf of: ORION Spence documented in this encounterSaint Francis Hospital & Health ServicesApmuemynyt87-48-7450 History of Present illness Narrative* Yomaira Guerrero [...] nursing note reviewed. Exam conducted with a security director present. Vitals: Estimated body mass index is [...] of: Layo Courtney DO documented in this encounterSaint Francis Hospital & Health ServicesAxgprkssys44-59-6601 History of Present illness Narrative* Marilia Elder [...] screen, urine; Future Nurse Note: Patient declined [place] billion to one Pt is an IVF [...] or undercooked meat, and stay away from [facility]. Patient has also been advised to [...] by: Marilia Elder MA documented in this encounterSaint Francis Hospital & Health ServicesAlsetihsun75-42-5514 History of Present illness Narrative* Donya Abernathy, CHRISTEN-CUT IN WORKER - 07/11/2024 4:00 PM EDT Visit Type: [...] Abernathy 07/11/2024 3:54 PM documented in this encounterPrem[facility] Work Phone: 1(827) 696-335802-10-2025 History of Present illness Narrative* Juan Chavarria [...] Preop diagnosis: Infertility Post op diagnosis: Same Exterminator: none Depth: 7 cm Curve: anterior Distance [...] Chavarria 06/13/24 11:24 AM documented in this encounterPremier Health Miami [facility] Hospital Work Phone: 1(140) 494-999202-10-2025 Hospital Discharge instructions* Discharge Instructions* Tisha Sparks RN - 06/13/2024 10:43 AM EST Images from the original note were not included. [facility] [address] [place] [address] Home Going Instructions after Embryo Transfer: After [...] in : Advil, Motrin, Ibuprofen, Aleve, Excedrin, [place], Sudafed, and Pepto-Bismol. Avoid aspirin unless you [...] Tisha Sparks 10:43 AM documented in this [facility] Work Phone: 1(901) 357-562502-03-2025 History of Present illness Narrative* Zoe Francis [...] until further instructed. Message sent to front desk worker [place]. ZOE FRANCIS on 06/06/24 at 1:12 PM. documented in this [facility] Work Phone: 1(751) 344-845812-04-2024 Hospital Discharge instructions Patient Education 04/06/2024 15:00:07 [...] provider. Document Revised: 09/09/2021 Document Reviewed: 09/09/2021 [employer] Patient Education 2023 [employer]. Follow Up Care 03/25/2024 14:07:23 With:Mallory Judd Address: When:Within 6 Month(s) [facility] 11-19-2024 History of Present illness [...] diagnosis: Female infertility Post op diagnosis: Same Exterminator: Dr. Warren IV Fluids: 600 cc EBL: 5 cc UOP: Not recorded Specimen: Oocytes Complications: None Number of Oocytes right ovary: 16 Ovarian access (right): Easy Number of Oocytes left ovary: 9 Ovarian access (left): Easy Endometrial thickness: n/a Needle type: Single Additional notes: documented in this encounterPremier Health [facility] Hospital Work Phone: 1(242) 819-754311-19-2024 Nurse Note* Gisell Michel RN - 03/22/2024 9:15 AM EST Patient discharged to home in stable condition via wheelchair to RIDE HOME: Partner's car. Accompanied by RN. ABREU at time of discharge. Discharge instructions given and concerns addressed. Gisell Michel RN 03/22/24 11:08 AM [facility] Work Phone: 1(349) 699-300411-19-2024 Nurse Note* Gisell Michel RN - 03/22/2024 9:15 AM EST Patient discharged to home in stable condition via wheelchair to RIDE HOME: Partner's car. Accompanied by RN. ABREU at time of discharge. Discharge instructions given and concerns addressed. Gisell Michel RN 03/22/24 11:08 AM documented in this encounterPremier Health [facility] Hospital Work Phone: 1(894) 860-361211-19-2024 Hospital Discharge instructions* Discharge Instructions* Gisell Michel RN - 03/22/2024 8:45 AM EST Images from the original note were not included. [address] [place] [address] Home Going Instructions after Egg Retrieval: Activity: [...] 2 weeks following your oocyte retrieval. Call [phone] to speak with a Physician or Nurse if you have any concerns. Gisell Michel 8:45 AM [facility] [address] [place], [place] IVF LAB EMBRYO UPDATE PROTOCOL The [...] biopsied and frozen. Gisell Michel 8:44 AM [facility] [address] [place] [address] Frozen Embryo Transfer Instructions After your egg retrieval, follow up with your IVF nurse within 3-4 days Thursday- Thursday regarding theplan for your frozen embryo transfer (FET) cycle. Your IVF nurse will order and review with you themedications you will be using for the cycle. You will be sent an email from [employer] to fill out your Frozen Embryo Treatment [...] Michel RN 8:44 AM documented in this encounterPremier Health Miami [facility] Hospital Work Phone: 1(509) 611-380511-17-2024 History of Present illness Narrative* Krissy Yanes [...] Arrive 60 minutes prior to procedure at [place] [address]. Patient verbalizes understanding of plan and location of procedure. Patient scheduled to go to [facility] tomorrow for post trigger labs Krissy Yanes 03/20/2024 11:01 AM documented in this encounterPremier Health [facility] Work Phone: 1(585) 705-270311-16-2024 History of Present illness Narrative* Krissy Yanes RN - 03/19/2024 8:30 AM EST CYCLING NOTE - IVF Cycle #: 2 (Has 3 embryos frozen from 1st cycle) Reason For Treatment: Male Infertility Protocol: OCP lead, Antagonist 225/75 ---> 175/75 Day of stim: 8th day of meds Patient Hx: 28 year old, AMH = 1.94. Patient of Dr. Chaavrria Notes: Antagonist started on 03/16 Here for [...] Yanes 03/19/24 11:02 AM documented in this encounterPremier Health [facility] Work Phone: 1(703) 887-181411-14-2024 History of Present illness Narrative* Krissy Yanes [...] Yanes 03/17/24 1:04 PM documented in this encounterPremier Health [facility] Hospital Work Phone: 1(209) 389-259211-12-2024 History of Present illness Narrative* Allyssa Robles [...] time; no further questions.Transferred to the front desk worker to schedule appt for 03/17. Allyssa Robles 03/15/24 1:27 PM documented in this [facility] Work Phone: 1(586) 555-933211-06-2024 History of Present illness Narrative* Allyssa Robles [...] Yes; PGT-M Test Ready: No ; Company: [employer] PGT order scanned into [employer], confirmed by: LORI on Plan to freeze: [...] on 03/09 by delano On site at [facility] Additional details: Allyssa Robles 03/09/2024 7:50 AM TC to pt to confirm today's plan; LM; will send [facility] message. Allyssa Robles 03/09/24 2:02 PM Pt called back to confirm plan; Pt has all meds and all questions answered. She plans to purchase FET meds before the end of the year (they were ordered back in February) and will call [facility] to have them filled as she has met deductible and REECE needs a PA. Allyssa Robles 03/09/24 2:33 PM documented in this encounterPremier Health [facility] Work Phone: 1(484) 900-753210-22-2024 Nurse Note* Hannah Blackwood RN - 02/23/2024 10:39 AM EDT Patient discharged to home in stable condition via wheelchair accompanied by this RN to RIDE HOME: Partner's car. Discharge instructions given and concerns addressed. Patient verbalizes understandingof all information provided and is agreeable. [facility]10-22-2024 Nurse Note* Hannah Blackwood RN - [...] scant amount of bleeding. documented in this encounterPremier Health Miami Valley Hospital Work Phone: 1(442) 647-895910-22-2024 Nurse Note* Hannah Blackwood RN - 02/23/2024 10:00 AM EDT Patient up to bathroom independently, no complaints of pain or dizziness, able to void without issue, reports scant amount of bleeding. [facility] Work Phone: 1(666) 829-204710-22-2024 History of Present illness Narrative* Juan Chavarria [...] diagnosis: Female infertility Post op diagnosis: Same Exterminator: none IV Fluids: 500 cc EBL: 5 cc UOP: Not recorded Specimen: Oocytes Complications: None Number of Oocytes right ovary: 17 Ovarian acc ss (right): Easy Number of Oocytes left ovary: 13 Ovarian access (left): Easy Endometrial thickness: n/a Needle type: Single Additional notes: documented in this [facility] Work Phone: 1(750) 486-204210-22-2024 Hospital Discharge instructions* Discharge Instructions* Donya Rosas RN - 02/23/2024 7:23 AM EDT Images from the original note were not included. [facility] [address] [place] [address] Home Going Instructions after Egg Retrieval: Activity: [...] 2 weeks following your oocyte retrieval. Call [phone] to speak with a Physician or Nurse if you have any concerns. DONYA ROSAS 7:[address] [place], [place] IVF LAB EMBRYO UPDATE PROTOCOL The [...] biopsied and frozen. DONYA ROSAS 7:[address] [place], [place] IVF LAB EMBRYO UPDATE PROTOCOL The [...] biopsied and frozen. DONYA ROSAS 7:23 AM [facility] [address] [place] [address] Frozen Embryo Transfer Instructions After your egg retrieval, follow up with your IVF nurse within 3-4 days Thursday- Thursday regarding theplan for your frozen embryo transfer (FET) cycle. Your IVF nurse will order and review with you themedications you will be using for the cycle. You will be sent an email from [employer] to fill out your Frozen Embryo Treatment [...] ROSAS RN 7:32 AM [facility] Phone: 1(255) 884-195910-20-2024 History of Present illness Narrative* Beth Judge [...] Judge 02/21/2024 9:09 AM documented [facility] Work Phone: [phone]) 738-583510-19-2024 History of Present illness Narrative* Beth Judge [...] - Beth Judge RN documented in [facility] Work Phone: [phone]) 246-431510-17-2024 History of Present illness Narrative* Beth Judge [...] - Beth Judge RN documented in [facility] Work Phone: 1(144) 621-599610-15-2024 History of Present illness Narrative* Krissy Yanes [...] Will look into getting insulin syringes from [facility]. Team will contact patient later today with results and plan. Krissy Yanes 02/16/2024 7:27 AM LM with patient with plan to start Cetrotide today, drop FSH to 225 units and continue Menopur 75 units. Patient is already scheduled for 02/17 for repeat follicle scan and e2. Krissy Yanes 02/16/24 1:34 PM documented in this [facility] Work Phone: 1([phone]) 290-716610-08-2024 History of Present illness Narrative* Allyssa Robles [...] Yes; PGT-M Test Ready: No /A; Company: [employer] PGT order scanned into [employer], confirmed by: LORI on 02/09/2024 Plan to freeze: embryos [employer] forms/out waiver complete: Yes Does patient have medications onhand? Yes Pharmacy: [facility] Boarding pass signed off: Yes [facility] on [...] on 02/15 as scheduled; no further questions. Alylssa Robles 02/09/24 1:16 PM [facility] Phone[facility] 1([phone]) 564-916809-26-2024 Nurse Note* Ira Lopez RN - 01/28/2024 10:47 AM EDT Patient discharged to home in stable condition via wheelchair to RIDE HOME: Partner's car. Discharge instructions given and concerns addressed. [facility] Work Phone: 1(682) 199-838909-26-2024 Nurse Note* Ira Lopez RN - 01/28/2024 10:47 AM EDT Patient discharged to home in stable condition via wheelchair to RIDE HOME: Partner's car. Discharge instructions given and concerns addressed. [facility] Work Phone: 1(622) 231-816409-26-2024 History of Present illness Narrative* Leigh Ann [...] for above procedure under anesthesia in the [facility] area. Okay to proceed with above [...] well, no immediate complications documented in this [facility] Work Phone: 1([phone]) 228-659309-26-2024 Hospital Discharge instructions* Discharge Instructions* Ira Lopez RN - 01/28/2024 8:20 AM EDT Images from the original note were not included. [facility] [address] [place] [id number] Home Going Instructions after Polypectomy: Activity: We [...] Ira Lopez 8:20 AM documented in this [facility] Work Phone: [phone]) 859-287409-12-2024 History of Present illness Narrative* ORION Spence [...] nursing note reviewed. Exam conducted with a security director present. Vitals: Estimated body mass index is [...] behalf of: ORION Spence documented in this encounterSaint [facility] [id number] History of Present illness Narrative* Juan Chavarria [...] EVALUATION / TREATMENT Saw KELSY physician in [facility] Dr. Vergara Was told needed IVF, oligospermia Hysterosalpingogram: 2023, bilateral tubal patency Saline Infused Sonography: 07/2023, normal uterine cavity small uterine polyp noted (not removed as of yet) CASE LOADER OPERATOR Pelvic Ultrasound: 07/2023 [facility] 2.01 Relationship Status: x 2 years OB Hx G0 OB History 0 Para 0 Term 0 0 AB 0 Living 0 SAB 0 IAB 0 Ectopic 0 Multiple 0 Live Births 0 CASE LOADER OPERATOR HISTORY History of STD or PID: [...] Chavarria 12/28/2023 10:39 AM documented in this [facility] Work Phone: 1([phone]) 708-183508-09-2024 History of Present illness Narrative* Trish Thorpe, APARTMENT LOCATOR-CUT IN WORKER - 2023 8:45 AM EDT Visit Type: In Person NEW FERTILITY PATIENT VISIT Referred by: insurance referral Accompanied today by: spouse Sydney Romero is a 27 y.o. female who presents with Infertility TTC x 2 years PRIOR EVALUATION / TREATMENT Saw KELSY physician in [facility] Dr. Vergara Was told needed IVF, oligospermia Hysterosalpingogram: 2023, bilateral tubal patency Saline Infused Sonography: 07/2023, normal uterine cavity small uterine polyp noted (not removed as of yet) CASE LOADER OPERATOR Pelvic Ultrasound: 07/2023 AMH 2.01 Prior [...] Ectopic 0 Multiple 0 Live Births 0 CASE LOADER OPERATOR HISTORY History of STD or PID: [...] mg daily Recommend Consult with Dr. Meyer [phone] Recommend repeat SA with 48-72 hours abstinence Recommend Female Vitamins: vitamin Vitamin D (total of 2,000 international units daily) CoQ10 600 mg daily Routine Testing [facility] STDs Within 1 year Genetic carrier Waiver/Completed T&S Within 1 year AMH Within 1 year TSH Within 1 year Rubella/Varicella Within 5 years BMI Testing [facility] CBC Within 1 year CMP Within [...] Thorpe 2023 8:52 AM documented in this [facility] Work Phone: 1(179) 341-976608-09-2024 Instructions* Patient Instructions* SMITH Mina - 2023 8:45 AM EDT Recommend Male Vitamins Discussed as follows: Co-Q10 200 mg daily L-Carnitine 200-500 mg daily Vitamin C 500 mg daily Recommend Consult with Dr. Meyer [phone] Recommend repeat SA with 48-72 hours abstinence Recommend Female Vitamins: vitamin Vitamin D (total of 2,000 international units daily) CoQ10 600 mg daily documented in this [facility] Work Phone: 1(502) 605-970805-31-2024 Hospital Discharge instructions Patient Education 10/02/2023 12:54:19 [...] food choices, such as grocery stores and [employer]. What are the signs or symptoms? The [...] and how much exercise you get. Take evuf-vxh-vdztgez and prescription medicines only as told by [...] provider. Document Revised: 11/26/2021 Document Reviewed: 11/26/2021 [employer] Patient Education 2022 [employer] 10/02/2023 12:54:15 BMI for Adults BMI [...] numbers. This can be done either in [place] or metric measurements. Note that charts and online BMI calculators are available to help you find your BMI quickly and easily without having to do these calculations yourself. To calculate your BMI in [place] measurements: 1.Measure your weight in pounds [...] Centers for Disease Control and Prevention: www.cdc.gov [place] Heart Association: www.heart.org National Heart, Lung, and Blood Index: www.nhlbi.nih.gov Summary Body mass index (BMI) is a number that is calculated from a person's weight and height. BMI may help estimate how much of a person's weight is composed of fat. BMI can help identify thosewho may be at higher risk for certain medical problems. BMI can be measured using [place] measurements or metric measurements. BMI charts are used to identify whether you are underweight, normal weight, overweight, or obese. This information is not intended to replace advice given to you by your health care provider. Make sure you discuss any questions you have with your health care provider. Document Revised: 01/11/2020 Document Reviewed: 11/18/2019 [employer] Patient Education 2022 [employer] 10/02/2023 12:54:13 Migraine Headache Migraine Headache [...] Follow these instructions at home: Medicines Take scml-ddq-usolakk and prescription medicines only as told by your health care provider. Ask your health care provider if the medicine prescribed to you: ?Requires you to avoid driving or using heavy machinery. ?Can cause constipation. You may need to take these actions to prevent or treat constipation: ?Drink enough fluid to keep your urine pale yellow. ?Take iner-chi-qwqtyyc or prescription medicines. ?Eat foods that are [...] provider. Document Revised: 08/12/2019 Document Reviewed: 06/02/2019 [employer] Patient Education 2022 [employer] 10/02/2023 12:54:11 Form - Headache Record [...] provider. Document Revised: 09/18/2021 Document Reviewed: 09/18/2021 [employer] Patient Education 2022 [employer] 10/02/2023 12:54:08 Eczema Eczema Eczema refers [...] these instructions at home: Take or apply vcei-zer-ymvxgxi and prescription medicines only as told by your health care provider. Use creams or ointments to moisturize your skin. Do not use lotions. Learn what triggers or irritates your symptoms so you can avoid these things. Treat symptom flare-ups quickly. Do not scratch your skin. This can make your rash worse. Keep all follow-up visits. This is important. Where to find more information [place] Academy [employer] Dermatology: aad.org National Eczema Association: [...] provider. Document Revised: 01/28/2021 Document Reviewed: 01/28/2021 [employer] Patient Education 2022 [employer]. 10/02/2023 12:54:06 BMI for Adults BMI for [...] numbers. This can be done either in [place] or metric measurements. Note that charts and online BMI calculators are available to help you find your BMI quickly and easily without having to do these calculations yourself. To calculate your BMI in [place] measurements: 1.Measure your weight in pounds [...] Centers for Disease Control and Prevention: www.cdc.gov [place] Heart Association: www.heart.org National Heart, Lung, and Blood Index: www.nhlbi.nih.gov Summary Body mass index (BMI) is a number that is calculated from a person's weight and height. BMI may help estimate how much of a person's weight is composed of fat. BMI can help identify thosewho may be at higher risk for certain medical problems. BMI can be measured using [place] measurements or metric measurements. BMI charts are used to identify whether you are underweight, normal weight, overweight, or obese. This information is not intended to replace advice given to you by your health care provider. Make sure you discuss any questions you have with your health care provider. Document Revised: 01/11/2020 Document Reviewed: 11/18/2019 [employer] Patient Education 2022 [employer]. Follow Up Care 09/22/2023 13:18:17 With:Princess Dumont FAM, MED Address: [address] [place] [address] [place] [id number]- [facility] (1) When:07/08/2023 Comments:for f/u [facility] 04-25-2024 Hospital Discharge instructions Patient [...] 1.Identify the foods that contain carbohydrates: Rice. Holland. Milk. Strawberries. 2.Calculate how many servings you [...] and snacks. Where to find more information [place] Diabetes Association: diabetes.org Centers for Disease Control [...] provider. Document Revised: 11/21/2020 Document Reviewed: 11/21/2020 [employer] Patient Education 2022 [employer]. 08/27/2023 19:11:56 Calorie Counting for Weight Loss [...] provider. Document Revised: 05/31/2020 Document Reviewed: 05/31/2020 [employer] Patient Education 2022 [employer]. 08/27/2023 19:11:54 Exercising to Lose Weight Exercising [...] your health care provider or diet and eap specialist (dietitian). This may include: ?Eating fewer [...] provider. Document Revised: 06/16/2021 Document Reviewed: 06/16/2021 [employer] Patient Education 2022 [employer]. 08/27/2023 19:11:53 BMI for Adults BMI for [...] numbers. This can be done either in [place] or metric measurements. Note that charts and online BMI calculators are available to help you find your BMI quickly and easily without having to do these calculations yourself. To calculate your BMI in [place] measurements: 1.Measure your weight in pounds [...] Centers for Disease Control and Prevention: www.cdc.gov [place] Heart Association: www.heart.org National Heart, Lung, and Blood Index: www.nhlbi.nih.gov Summary Body mass index (BMI) is a number that is calculated from a person's weight and height. BMI may help estimate how much of a person's weight is composed of fat. BMI can help identify thosewho may be at higher risk for certain medical problems. BMI can be measured using [place] measurements or metric measurements. BMI charts are used to identify whether you are underweight, normal weight, overweight, or obese. This information is not intended to replace advice given to you by your health care provider. Make sure you discuss any questions you have with your health care provider. Document Revised: 01/11/2020 Document Reviewed: 11/18/2019 [employer] Patient Education 2022 [employer]. 08/27/2023 19:11:48 Musculoskeletal Pain Musculoskeletal Pain Musculoskeletal [...] by mouth or applied to theskin. Take lnxm-cre-iunnzex and prescription medicines only as told by [...] provider. Document Revised: 08/23/2020 Document Reviewed: 08/01/2020 [employer] Patient Education 2022 [employer]. 08/27/2023 19:05:09 Cervicogenic Headache Cervicogenic Headache In [...] your primary health care provider, a painter set, a neurologist, and a physical therapist. Follow these instructions at home: Take ojcr-ufb-jifamfz and prescription medicines only as told by [...] your primary health care provider, a painter set, a neurologist, and a physical therapist. This [...] provider. Document Revised: 09/18/2021 Document Reviewed: 09/18/2021 [employer] Patient Education 2022 [employer] 08/27/2023 19:05:07 Chronic Migraine Headache Chronic [...] Follow these instructions at home: Medicines Take icuj-hnd-pcgfmns and prescription medicines only as told by [...] for Headache and Migraine Patients (CHAMP): headachemigraine.org [place] Migraine Foundation: americanmigrainefoundation.org National Headache Foundation: headaches.org [...] provider. Document Revised: 06/06/2020 Document Reviewed: 06/06/2020 [employer] Patient Education 2022 [employer]. 08/27/2023 19:05:03 BMI for Adults BMI for [...] numbers. This can be done either in [place] or metric measurements. Note that charts and online BMI calculators are available to help you find your BMI quickly and easily without having to do these calculations yourself. To calculate your BMI in [place] measurements: 1.Measure your weight in pounds [...] Centers for Disease Control and Prevention: www.cdc.gov [place] Heart Association: www.heart.org National Heart, Lung, and Blood Index: www.nhlbi.nih.gov Summary Body mass index (BMI) is a number that is calculated from a person's weight and height. BMI may help estimate how much of a person's weight is composed of fat. BMI can help identify thosewho may be at higher risk for certain medical problems. BMI can be measured using [place] measurements or metric measurements. BMI charts are used to identify whether you are underweight, normal weight, overweight, or obese. This information is not intended to replace advice given to you by your health care provider. Make sure you discuss any questions you have with your health care provider. Document Revised: 01/11/2020 Document Reviewed: 11/18/2019 [employer] Patient Education 2022 [employer]. 08/27/2023 19:05:01 Health Maintenance, Female Health Maintenance, [...] provider. Document Revised: 09/09/2021 Document Reviewed: 09/09/2021 [employer] Patient Education 2022 [employer]. Follow Up Care 08/17/2023 08:42:02 With:Princess Dumont [facility] Address: [address] [place] [address] [address]- When:Within 6 Week(s) Comments:weight loss and headaches [facility] 10-19-2023 Evaluation + Plan note Future Scheduled Tests Laboratory* U Protein/Creat Ratio 02/19/23 * HgbA1c 02/19/23 * Microalbumin Level Urine 02/19/23 * TSH With T4fr Reflex 02/19/23 * Vitamin D 25 Hydroxy 02/19/23 * CBC w/ Auto Diff 02/19/23 * Comprehensive Metabolic Panel 10/19/23 * Lipid Panel 02/19/23 Radiology* XR Spine Cervical 4 or 5 Views 02/19/23 [facility] 10-19-2023 Hospital Discharge instructions Patient [...] your primary health care provider, a painter set, a neurologist, and a physical therapist. Follow these instructions at home: Take hgxw-xvm-lhutqml and prescription medicines only as told by [...] your primary health care provider, a painter set, a neurologist, and a physical therapist. This information is not intended to replace advice given to you by your health care provider. Make sure you discuss any questions you have with your health care provider. Document Revised: 10/24/2021 Document Reviewed: 10/24/2021 [employer] Patient Education 2022 [employer]. 02/19/2023 08:34:09 Migraine Headache Migraine Headache A [...] Follow these instructions at home: Medicines Take lilc-jal-hbdtltv and prescription medicines only as told by your health care provider. Ask your health care provider if the medicine prescribed to you: ?Requires you to avoid driving or using heavy machinery. ?Can cause constipation. You may need to take these actions to prevent or treat constipation: ?Drink enough fluid to keep your urine pale yellow. ?Take jhuz-ehz-dwiuyks or prescription medicines. ?Eat foods that are [...] Document Reviewed: 06/02/2019 Elsevier Patient Education 2023 [employer] 02/19/2023 08:34:03 Form - Headache Record [...] provider. Document Revised: 09/18/2021 Document Reviewed: 09/18/2021 [employer] Patient Education 2022 [employer] 02/19/2023 01:02:45 General Headache Without Cause [...] help with your condition: Managing pain Take twxs-qfl-lwloedp and prescription medicines only as told by [...] provider. Document Revised: 09/18/2021 Document Reviewed: 09/18/2021 [employer] Patient Education 2022 [employer] 02/19/2023 01:02:42 Form - Headache Record [...] your primary health care provider, a painter set, a neurologist, and a physical therapist. Follow these instructions at home: Take yeib-gak-ospukgy and prescription medicines only as told by [...] your primary health care provider, a painter set, a neurologist, and a physical therapist. This information is not intended to replace advice given to you by your health care provider. Make sure you discuss any questions you have with your health care provider. Document Revised: 10/24/2021 Document Reviewed: 10/24/2021 [employer] Patient Education 2022 [employer]. 02/19/2023 01:02:35 Chronic Migraine Headache Chronic Migraine [...] Follow these instructions at home: Medicines Take qdip-gns-uzgwtvx and prescription medicines only as told by [...] for Headache and Migraine Patients (CHAMP): headachemigraine.org [place] Migraine Foundation: americanmigrainefoundation.org National Headache Foundation: headaches.org [...] provider. Document Revised: 06/06/2020 Document Reviewed: 06/06/2020 [employer] Patient Education 2022 [employer]. Follow Up Care 02/17/2023 08:10:14 With:Princess Dumont FAM, MED Address: [address], [place] [address] [place] [phone]- When:Within 1 Month(s) Comments:headaches. neck pain With:Princess Dumont FAM, MED Address: [address], [place] [address] [place] [phone]- When:Within 1 Year(s) Comments:annual wellness, anxiety/ depression [facility] 03-23-2022 Hospital Discharge instructions Patient [...] height. This can be done either in [place] or metric measurements. Note that charts are available to help you find your BMI quickly and easily without having to do these calculations yourself. To calculate your BMI in [place] measurements, your health care provider will: [...] medical problems. BMI can be measured using [place] measurements or metric measurements. To interpret your [...] 12/30/2004 Document Revised: 04/02/2018 Document Reviewed: 03/03/2018 [employer] Patient Education 2020 [employer]. 07/24/2021 17:16:58 Health Maintenance, Female Health Maintenance, [...] 11/03/2011 Document Revised: 04/13/2019 Document Reviewed: 04/13/2019 [employer] Patient Education 2020 [employer]. Follow Up Care 06/26/2021 18:00:45 With:Leigh Ann Covington CNP Address: When: only if needed [facility] Evaluation + Plan note Future Appointments Appointment Date:10/03/2021 01:00:00 PM Scheduled Provider:Naya ABDI Location: [place] Appointment Type:[facility] Evaluation + Plan note Future Appointments Appointment Date:03/25/2023 07:00:00 AM Scheduled Provider:Princess Dumont Location:[facility] Appointment Type:FM Open Future Scheduled Tests Laboratory* U Protein/Creat Ratio 02/19/23 * HgbA1c 02/19/23 * Microalbumin Level Urine 02/19/23 * TSH With T4fr Reflex 02/19/23 * Vitamin D 25 Hydroxy 02/19/23 * CBC w/ Auto Diff 02/19/23 * Comprehensive Metabolic Panel 02/19/23 * Lipid Panel 02/19/23 Radiology* XR Spine Cervical 4 or 5 Views 02/19/23 [facility] Evaluation + Plan note Future Appointments Appointment Date:10/21/2023 07:20:00 AM Scheduled Provider:Princess Dumont Location:[facility] Appointment Type:FM Open Future Scheduled Tests Laboratory* TSH With T4fr Reflex 02/19/23 * Vitamin D 25 Hydroxy 02/19/23 * CBC w/ Auto Diff 02/19/23 * Comprehensive Metabolic Panel 02/19/23 * Lipid Panel 02/19/23 Radiology* XR Spine Cervical 4 or 5 Views 02/19/23 [facility] Evaluation + Plan note Future Appointments Appointment Date:10/05/2024 07:00:00 AM Scheduled Provider:Mallory Judd Location:[facility] Appointment Type:FM Open [facility] Evaluation note* Diagnosis Endometrial polyp Polyp of corpus uteri documented in this encounter [facility] Work Phone: Evaluation note* Diagnosis Pre-procedure lab exam Pre-procedural laboratory examination Female infertility Female infertility of unspecified origin documented in this encounter [facility] Work Phone: Evaluation note* Diagnosis Female infertility Female infertility of unspecified origin documented in this encounter [facility] Work Phone: Evaluation note* Diagnosis Female infertility Female infertility of unspecified origin documented in this encounter [facility] Work Phone: Evaluation note* Diagnosis Encounter for assisted reproductive fertility cycle Encounter for assisted reproductive fertility procedure cycle documented in this encounter [facility] Work Phone: [phone] note* Diagnosis Female infertility Female infertility of unspecified origin Pre-procedure lab exam Pre-procedural laboratory examination documented in this encounter [facility] Work Phone: [phone] note* Diagnosis Female infertility Female infertility of unspecified origin [facility] [facility] Work Phone: [phone] note* Diagnosis Female infertility Female infertility of unspecified origin documented in this encounter [facility] Work Phone: [phone] note* Diagnosis Female infertility Female infertility of unspecified origin documented in this encounter [facility] Work Phone: [phone] note* Diagnosis Encounter for assisted reproductive fertility cycle Encounter for assisted reproductive fertility procedure cycle documented in this encounter [facility] Work Phone: [phone] note* Diagnosis Encounter for assisted reproductive fertility cycle Encounter for assisted reproductive fertility procedure cycle documented in this encounter [facility] Work Phone: [phone] note* Diagnosis Well woman exam with routine gynecological exam Routine gynecological examination documented in this encounter [facility] HealthcareEvaluation note* Diagnosis Encounter for screening for other viral diseases- Primary Encounter for Rh blood typing Encounter for blood typing Screening for STDs (sexually transmitted diseases) Screening examination for venereal disease Genetic screening Other genetic screening Fertility testing Female infertility associated with male factors Female infertility of other specified origin documented in this encounter [facility] Work Phone: [phone] note* Diagnosis Fertility testing [Z31.41]- Primary Fertility testing 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 [Z31.81, N97.8] documented in this encounter [facility] Work Phone: [phone] note* Diagnosis Endometrial polyp Polyp of corpus uteri documented in this encounter [facility] Work Phone: [phone] note* Diagnosis Female infertility Female infertility of unspecified origin documented in this encounter [facility] Work Phone: [phone] note* Diagnosis Encounter for assisted reproductive fertility cycle Encounter for assisted reproductive fertility procedure cycle documented in this encounter [facility] Work Phone: Evaluation note* Diagnosis Encounter for assisted reproductive fertility cycle Encounter for assisted reproductive fertility procedure cycle Encounter for test, result unknown documented in this encounter [facility] Work Phone: Evaluation note* Diagnosis Encounter to determine viability of , single or unspecified fetus documented in this encounter [facility] Work Phone: Evaluation note* Diagnosis Missed [...] note* Diagnosis (HHS-HCC) documented in this encounter [facility] Work Phone: Evaluation note* Diagnosis Second [...] gestation of (HHS-HCC) documented in this encounter [facility]ospital course Narrative No data available for this section [facility] Hospital Discharge instructions No data available for this section [facility] Progress note No data available for this section [facility] Reason for referral (narrative)* Consultation (Routine) - AuthorizedSpecialtyDiagnoses / ProceduresReferred By ContactReferred To ContactGenetics Diagnoses Genetic screening Trish Thorpe APRN-CNP [address] [place] [address] Referral IDStatusReasonStart DateExpiration DateVisits RequestedVisits [id number] Specialty Services Required [facility] Work Phone: Reason for visit Narrative* Imaging (Routine) - AuthorizedSpecialtyDiagnoses / ProceduresReferred By ContactReferred To ContactRadiology Diagnoses Female infertility Procedures KELSY US Pelvis Limited Follicles - Follicle Studies Performed America Chavez APRN-CNP [address] [place] [address] Phone: tel: fax: Referral IDStatusReasonStart DateExpiration DateVisits RequestedVisits [id number] Perform Procedure [facility] Work Phone: [phone] for visit Narrative* Imaging (Routine) - Pending ReviewSpecialtyDiagnoses / ProceduresReferred By ContactReferred To ContactRadiology Diagnoses Female infertility Procedures KELSY US Pelvis Limited Follicles - Follicle Studies Performed America Chavez, APARTMENT LOCATOR-CUT IN WORKER [address] [place] [address] Phone: tel: fax: Referral IDStatusReasonStart DateExpiration DateVisits RequestedVisits [id number] Review Perform Procedure [facility] Work Phone: [phone] for visit Narrative* Procedure (Routine) - AuthorizedSpecialtyDiagnoses / ProceduresReferred By ContactReferred To ContactReproductive Endocrinology and Infertility Diagnoses Encounter for assisted reproductive fertility cycle Procedures Egg Retrieval OK FOLLICLE PUNCTURE OOCYTE RETRIEVAL ANY METHOD CHG US GUIDANCE ASPIRATION OVA IMG S&I CHG OOCYTE ID FROM FOLLICULAR FLU CHG BX OOCYTE POLR BDY/AMBER BLST MICROTQ <= 5 AMBER CHG BX OOCYTE MICROTQ >5 AMBER CHG UNLISTED MOLECULAR PATHOLOGY PROCEDURE CHG CYTOGENETICS&MOLEC CYTOGENETICS INTERP&REP Beth Warren MD [address] [place] [address] Phone: tel: fax: Referral IDStatusReasonStart DateExpiration DateVisits RequestedVisits [id number]/25/20249/25/202511 [facility] Work Phone: reason for visit Narrative* Imaging (Routine) - AuthorizedSpecialtyDiagnoses / ProceduresReferred By ContactReferred To ContactRadiology Diagnoses Female infertility Procedures KELSY US Pelvis Limited Follicles - Follicle Studies Performed Donya Abernathy, APARTMENT LOCATOR-CUT IN WORKER [address] [facility], [place] [address] Phone: tel: fax:[phone] Referral IDStatusReasonStart DateExpiration DateVisits RequestedVisits [id number] Perform Procedure [facility] Work Phone: Reason for visit Narrative* Procedure (Routine) - AuthorizedSpecialtyDiagnoses / ProceduresReferred By ContactReferred To ContactReproductive Endocrinology and Infertility Diagnoses Encounter for assisted reproductive fertility cycle Procedures Egg Retrieval OK FOLLICLE PUNCTURE OOCYTE RETRIEVAL ANY METHOD CHG US GUIDANCE ASPIRATION OVA IMG S&I CHG OOCYTE ID FROM FOLLICULAR FLU CHG BX OOCYTE POLR BDY/AMBER BLST MICROTQ <= 5 AMBER CHG BX OOCYTE MICROTQ >5 AMBER CHG UNLISTED MOLECULAR PATHOLOGY PROCEDURE CHG CYTOGENETICS&MOLEC CYTOGENETICS INTERP&REP Donya Abernathy, APARTMENT LOCATOR-CUT IN WORKER [address] [facility], [place] [address] Phone: tel: fax: Referral IDStatusReasonStart DateExpiration DateVisits RequestedVisits [id number]/29/202410/29/202510 [facility] Work Phone: reason for visit Narrative* Imaging (Routine) - AuthorizedSpecialtyDiagnoses / ProceduresReferred By ContactReferred To ContactRadiology Diagnoses Female infertility Procedures KELSY US Endometrial Lining Check Donya Abernathy, APARTMENT LOCATOR-CUT IN WORKER [address] [facility], [place] [address] Phone: tel: fax: Referral IDStatusReasonStart DateExpiration DateVisits RequestedVisits [id number] Perform Procedure [facility] Work Phone: reason for visit Narrative* Procedure (Routine) - AuthorizedSpecialtyDiagnoses / ProceduresReferred By ContactReferred To ContactReproductive Endocrinology and Infertility Diagnoses Encounter for assisted reproductive fertility cycle Procedures Embryo Transfer OK EMBRYO TRANSFER INTRAUTERINE CHG ULTRASONIC GUIDANCE INTRAOPERATIVE CHG THAWING CRYOPRESERVED EMBRYO CHG ASSTD EMBRYO HATCHING MICROTQS ANY METH CHG PREPJ EMBRYO TR Juan Chavarria MD [address], [facility] [[email or web address] [address] [place] [address] Phone: tel: fax: Referral IDStatusReasonStart DateExpiration DateVisits RequestedVisits [id number]/7/20252/7/202611 [facility] Work Phone: Reason for visit Narrative* Imaging (Routine) - AuthorizedSpecialtyDiagnoses / ProceduresReferred By ContactReferred To ContactRadiology Diagnoses ([facility]) Procedures US OB detail anatomy Layo Courtney DO [address] [facility] [address], [place] [address] Phone: tel: fax: Referral IDStatusReasonStart DateExpiration DateVisits RequestedVisits [id number] Perform Procedure [facility] Work Phone: Summary Purpose Family History [...] Polypectomy Juan Chavarria MD [address], [facility] [[email or web address]] [address] [place] [address] GEOVANNA Darío Satnam [address] [place] [address] [place] [address] Referral IDStatusReasonStart DateExpiration DateVisits RequestedVisits [id number]/23/20249/23/202511 Additional Source Comments INFORMATION SOURCE (unrecogn ized section and content) DATE CREATED AUTHOR 08/01/2022 [facility] DATE CREATED AUTHOR AUTHOR'S ORGANIZ ATION 04/04/2024 [facility] DATE CREATED AUTHOR AUTHOR'S ORGANIZ ATION 06/15/2024 [facility] DATE CREATED AUTHOR AUTHOR'S ORGANIZ ATION 07/02/2024 [facility] DATE CREATED AUTHOR AUTHOR'S ORGANIZ ATION 07/14/2024 [facility] DATE CREATED AUTHOR AUTHOR'S ORGANIZ ATION 10/11/2024 [facility] DATE CREATED AUTHOR AUTHOR'S ORGANIZ ATION 02/16/2025 [facility] EPIC Patient Care team informatio [...] polyp Procedures Polypectomy Juan Chavarria MD [address] [facility] [address], [place] [address] GEOVANNA [address] [place] [address] Referral IDStatusReasonStadrian DateExpiration DateVisits RequestedVisits [id number]/23/20249/567378JlywkgeisJprnyoghq / Procedures Referred By ContactReferred To ContactRadiology Diagnoses Female infertility Procedures KELSY US Pelvis Limited Follicles - Follicle Studies Performed America Chavez, APARTMENT LOCATOR-CUT IN WORKER [address] [place] [address] Referral IDStatusReasonStart DateExpiration DateVisits RequestedVisits [id number] Perform Procedure [id number] Women VisitReasonCommentsNew Patient Fertility ConsultationReasonCommentsIVF ConsultationReasonCommentsAmenorrhea ReasonCommentsRoutine [...] BE BASED ON THE PRIMARY CLINICAL RECORDS. [facility] [employer], [facility]. provides no warranty or guarantee of the accuracy or completeness of information in this document.
== END 2025-03-01 10:15 | disposition home or self-care (01) ==
LOC: FBCO 08:11
PROVIDERS: Visit Provider Obstetrics & Gynecology
DX: Z39.1 Encounter for care and examination of lactating mother (principal)

== ENCOUNTER 2025-04-17 08:09 | Outpatient (OUT) | payer OTHER, SELFPAY ==
--- OUTSIDE RECORDS SUMMARY | 2025-04-06 11:30 | XMS_ITS | Encounter Summary ---
Author Organization [facility] Address [address] [place] [address] Care Team Providers Care Manufacturing Weaver Name Role Phone Unavailable Primary Care Provider Unavailabl e Reason for Visit * ReasonCommentsPostpartum CarePt present today for a 6 week post visit. Pt delivered on Encounter Details DateTypeDepartmentCare Team (Latest Contact Info)Jaczmdbbxpf13/04/2025 11:30 AM ESTPostpartum Visit SHIRA ZACARIAS [address] [place] [address] Brandy Sheehan PA [address] [place] [address] 6 weeks follow-up ([facility]) (Primary Dx) Social History Tobacco UseTypesPacks/DayYears UsedDateSmoking Tobacco: NeverAlcohol UseStandard Drinks/WeekCommentsYes0 (1 standard drink = 0.6 oz pure alcohol)Beer 1-2 times per monthCommentsNoSex and Gender InformationValueDate RecordedSex Assigned at BirthNot on fileLegal PktYungmx04/01/2023 8:34 PM EDTGender Identity Not on fileSexual OrientationNot on filedocumented as of this encounter Last Filed Vital Signs Vital SignReadingTime TakenCommentsBlood Aakegmbx836/80106/07/2024 11:47 AM EST Pulse--Temperature--Respiratory Rate--Oxygen Saturation--Inhaled Oxygen Concentration--Vfeipj48.9 kg (209 lb 1.9 oz)04/06/2025 11:47 AM ESTHeight--Body Mass Index37.04009/17/2022 12:00 PM EDTdocumented in this encounter Progress Notes * ORION Spence - 04/06/2025 11:30 AM EST Reason for Appointment: Patient ID: Sydney Garcia is a 29 y.o. female who presents for Care (Pt present todayfor a 6 week post visit. Pt delivered on ) Patient presents today for Post Follow Up appointment. MEDICATIONS No current outpatient medications ALLERGIES Allergies [...] reviewed. Vitals: Estimated body mass index is 37.04 kg/m?? as calculated from the following: Height as of 09/17/22: 5' 3 . Weight as of this encounter: 209 lb 1.9 oz. BP: 120/80 No LMP recorded. Assessment/Plan No diagnosis found.Assessment/Plan Post Follow Up: Patient is doing well. Patient presents today for 6 week visit. Patient is s/p Vaginal delivery. Patient states depression but denies suicidal and homicidal ideations. All options were discussed with the patient regarding control and patient desires no control at this time. Follow Up: Patient is to return for annual unless needed otherwise. Documented by ORION Spence on behalf of: ORION Spence documented in this encounter Plan of Treatment DateTypeDepartmentCare Team (Latest Contact Info)Sizspduomac20/08/2026 2:00 PM EDTProcedure Visit [facility] ZACARIAS [address] [place] [place] [address] Brandy Sheehan PA [address] [place] [address] documented as of this encounter Visit Diagnoses Diagnosis 6 weeks follow-up ([facility])- Primary documented in this encounter
--- OUTSIDE RECORDS SUMMARY | 2025-04-17 08:14 | XMS_ITS | Clinical Summary ---
Author Organization [facility] Address [address] [place] [address] Care Team Providers Care Petrophysicist Name Role Phone Unavailable Primary Care Provider Unavailabl e Allergies Active AllergyReactionsCriticalityNoted DateCommentsAzithromycinUnknown 03/16/2023 Other Reaction(s): Unknown JqanuEhbiZkq53/13/2023 Other Reaction(s): Itching NickelItching,UeghBzt7203/16/2023 Medications MedicationSigDispense QuantityRefillsLast FilledStart DateEnd DateStatus MV-Min-Fe Fum-FA-DHA ( 1 PO) Take 1 each by mouth Daily04/06/2025Discontinued Active Problems No known active problems Encounters DateTypeDepartmentCare MbyoQhzjpxkyyqp87/04/2025 11:30 AM ESTPostpartum Visit [facility] [address] [place] [address] Brandy Sheehan PA 6 weeks follow-up ([facility]) (Primary Dx)02/27/2025bstract [facility] [address] [facility] [address] Rula Courtney, DO 02/20/2025bstract [facility] [address] [facility] [address] Emilia Donahue MA 02/17/2025linisync Result Encounter [facility]OMS External Department Unsolicited Rula Courtney, 02/17/2025linisync Result Encounter NOMS External Department Unsolicited Rula Courtney, DO 02/14/2025 2:30 PM EDTRoutine [facility] [address] [place] [address] Rula Courtney, DO Third trimester ([facility]); 37 weeks gestation of ([facility])02/14/2025linisync Result Encounter [facility]OMS External Department Unsolicited Rula Courtney, DO 02/14/2025amboo flowsheet [facility] [address] [place] [address] Rula Courtney, DO 02/09/2025bstract [facility] [address] [place] [address] Rula Courtney, DO 02/07/2025 1:40 PM EDTRoutine [facility] [address] [place] [address] Maria M Guerrero NP Third trimester ([facility]); 36 weeks gestation of ([facility])02/07/2025linisync Result Encounter [facility]OM[facility] External Department Unsolicited Rula Courtney, DO 02/07/2025amboo flowsheet [facility] [address] [place] [address] Maria M Guerrero NP 02/01/2025linisync Result Encounter NOM[facility] External Department Unsolicited Rula Courtney, DO 02/01/2025linisync Result Encounter [facility]OMS External Department Unsolicited Rula Courtney, DO 01/31/2025 1:50 PM EDTRoutine [facility] [address] [place] [address] Maria M Guerrero NP Third trimester ([facility]); 35 weeks gestation of ([facility]); Encounter for in vitro aboghyjnmvyfl73/30/2025amboo flowsheet [facility] [address] [place] [address] Maria M Guerrero NP 01/25/2025linisync Result Encounter [facility]OMS External Department Unsolicited Rula Courtney, 01/24/2025linisync Result Encounter NOMS External Department Unsolicited Rula Courtney, DO 01/18/2025linisync Result Encounter NOMS External Department Unsolicited Rula Courtney, DO 01/16/2025 2:50 PM EDTRoutine [facility] [address] [place] [address] Rula Courtney DO 33 weeks gestation of ([facility]); Third trimester ([facility]); Group B streptococcal infection; resulting from in vitro fertilization in first trimester ([facility]) 01/16/2025amboo flowsheet [facility] [address] [facility] [address] Rula Courtney DO from Last 3 Months Family History Medical HistoryRelationNameCommentsMelanomaNeg HxRelationNameStatusComments FatherAliveMotherAlive Social History Tobacco UseTypesPacks/DayYears UsedDateSmoking Tobacco: Never Tobacco Cessation:Counseling Given: Not Answered Alcohol UseStandard Drinks/WeekCommentsYes0 (1 standard drink = 0.6 oz pure alcohol)Beer 1-2 times per monthCommentsNoSex and Gender Information ValueDate RecordedSex Assigned at BirthNot on fileLegal GjbNvkihi47/01/2023 8:34 PM EDTGender IdentityNot on fileSexual OrientationNot on file Last Filed Vital Signs Vital SignReadingTime TakenCommentsBlood Cdwcikye571/80106/07/2024 11:47 AM EST Pulse--Temperature--Respiratory Rate--Oxygen Saturation--Inhaled Oxygen Concentration--Pagjhc10.9 kg (209 lb 1.9 oz)04/06/2025 11:47 AM YEGMxtylg117 cm (5' 3 )09/17/2022 12:00 PM EDTBody Mass Index37.04009/17/2022 12:00 PM EDT Plan of Treatment DateTypeDepartmentCare Team (Latest Contact Info)Ybvwmgoynzw87/08/2026 2:00 PM EDTProcedure Visit [facility] [address] [place] [address] Brandy Sheehan PA [address] [facility] [place] [address] Procedures Procedure NamePriorityDate/TimeAssociated DiagnosisCommentsMHPT FIBRINOGEN Xxmovej6602/17/2025 6:04 PM EDT [facility] HEAVKonsxxx69/17/2025 6:04 PM EDT SRMCOH PROTHROMBIN TIME INR W/O RBLHMpuzawh01/17/2025 6:04 PM EDT [facility] PLIGtvfhph73/17/2025 6:04 PM EDT [facility] EBZZibjsgb53/17/2025 6:04 PM EDT ALL URIC LCVAAsonagh98/17/2025 6:04 PM EDT TBH WGYYAZVAWLSvclafh63/17/2025 6:04 PM EDT ALL ZSDPtbljcm14/17/2025 6:04 PM EDT ALL CBC WITH AUTO HAGYZqwsdkr19/17/2025 6:04 PM EDT TBH DRUG SCREEN RAPID (URINE)Yhnlcss3302/17/2025 6:00 PM EDT TBH URINE T PROTEIN CREAT DLTHWOaqgirx68/17/2025 6:00 PM EDT ECG 12-LEAD02/17/2025 4:49 PM EDT US OB BPP W NON-IRLUWF0302/14/2025 9:54 PM EDT POCT URINALYSIS YQKSWBLTOttgfqa78/14/2025 2:52 PM EDT Third trimester ([facility]) CULTURE, GROUP B STREP WITH VGIGNCSGPSZUDYhxesbb00/08/2025 8:35 AM EDT Third trimester ([facility]) US OB BPP W NON-DTULQK5802/07/2025 4:05 PM EDT POCT URINALYSIS PKULXBXYFqylskm89/07/2025 1:52 PM EDT 36 weeks gestation of ([facility]) US OB BPP W NON-AAFTWU2402/01/2025 9:21 AM EDT US OB DYUOLO7902/01/2025 9:21 AM EDT POCT URINALYSIS TJFWENKZQlkfmro08/30/2025 2:25 PM EDT 35 weeks gestation of ([facility]) US OB BPP W NON-QMRBVR0201/25/2025 6:24 PM EDT US OB BPP W NON-VMCDMH5001/24/2025 7:55 PM EDT US OB BPP W NON-MKVUPB9501/18/2025 9:02 AM EDT POCT URINALYSIS NLKRWIJXCehtsxo85/15/2025 3:20 PM EDT 33 weeks gestation of ([facility]) Third trimester ([facility]) from Last 3 Months Results * [facility] CREATININE (02/17/2025 6:04 PM EDT)ComponentValueRef RangeTest Method Analysis TimePerformed AtPathologist SignatureCREATININE0.640.55 - 1.02 mg/dL TBHTBH EGFR-AF SWEDISH>60>=60 mL/min/1.73m 2TBHTBH EGFR-NON AF SWEDISH>60 >=60 mL/min/1.73m 2TBHSpecimen (Source)Anatomical Location / Laterality Collection Method / VolumeCollection TimeReceived Time02/17/2025 6:04 PM EDT 02/17/2025 6:10 PM EDT Narrative CLINISYNC - 02/17/2025 6:31 PM EDT Authorizing ProviderResult TypeResult StatusCorey Sherwin DOCLINISYNCFinal Result Performing OrganizationAddressCity/State/ZIP CodePhone Number [facility] * SRMCOH PROTHROMBIN TIME INR W/O COUM (02/17/2025 6:04 PM EDT)ComponentValueRef RangeTest MethodAnalysis TimePerformed AtPathologist SignaturePROTHROMBIN TIME 9.99.0 - 11.6 secTBHTBH INR0.93TBHComment: DESIRED INR: 2.0-3.0 CONDITIONS NOT LISTED BELOW 2.5-3.5 FOR PROSTHETIC HEART VALVE REPLACEMENT 2.5-3.5 RECURRENT THROMBOSIS Specimen (Source)Anatomical Location / LateralityCollection Method / Volume Collection TimeReceived Time02/17/2025 6:04 PM EDT1 6:10 PM EDT Narrative CLINISYNC - 02/17/2025 7:07 PM EDT Authorizing ProviderResult TypeResult StatusCorey Sherwin DOCLINISYNCFinal Result Performing OrganizationAddressCity/State/ZIP CodePhone Number [facility] * MHPT FIBRINOGEN (02/17/2025 6:04 PM EDT)ComponentValueRef RangeTest Method Analysis TimePerformed AtPathologist FuiznochdMLMACLLDSC015575 - 400 mg/dLTBH Specimen (Source)Anatomical Location / LateralityCollection Method / Volume Collection TimeReceived Time02/17/2025 6:04 PM EDT1 6:10 PM EDT Narrative CLINISYNC - 02/17/2025 7:07 PM EDT Authorizing ProviderResult TypeResult StatusCorey Sherwin DOCLINISYNCFinal Result Performing OrganizationAddressCity/State/ZIP CodePhone Number [facility] * CCF AST (02/17/2025 6:04 PM EDT)ComponentValueRef RangeTest MethodAnalysis TimePerformed AtPathologist SignatureASPARTATE AMINO KCMPZGNVFOQ9224 - 37 U/L TBHSpecimen (Source)Anatomical Location / LateralityCollection Method / Volume Collection TimeReceived Time02/17/2025 6:04 PM EDT1 6:10 PM EDT Narrative CLINISYNC - 02/17/2025 6:31 PM EDT Authorizing ProviderResult TypeResult StatusCorey Sherwin DOCLINISYNCFinal Result Performing OrganizationAddressCity/State/ZIP CodePhone Number [facility] * [facility] APTT (02/17/2025 6:04 PM EDT)ComponentValueRef RangeTest MethodAnalysis TimePerformed AtPathologist SignaturePARTIAL THROMBOPLASTIN TIME26.922.3 - 36.2 secTBHSpecimen (Source)Anatomical Location / LateralityCollection Method / VolumeCollection TimeReceived Time02/17/2025 6:04 PM EDT1 6:10 PM EDT Narrative CLINISYNC - 02/17/2025 7:07 PM EDT Authorizing ProviderResult TypeResult StatusCorey Sherwin DOCLINISYNCFinal Result Performing OrganizationAddressCity/State/ZIP CodePhone Number [facility] * CCF ALT (02/17/2025 6:04 PM EDT)ComponentValueRef RangeTest MethodAnalysis TimePerformed AtPathologist SignatureALANINE GTMTJSDZECEVPRPY5988 - 59 U/LTBH Specimen (Source)Anatomical Location / LateralityCollection Method / Volume Collection TimeReceived Time02/17/2025 6:04 PM EDT1 6:10 PM EDT Narrative CLINISYNC - 02/17/2025 6:31 PM EDT Authorizing ProviderResult TypeResult StatusCorey Sherwin DOCLINISYNCFinal Result Performing OrganizationAddressty/State/ZIP CodePhone Number [facility] * ALL URIC ACID (02/17/2025 6:04 PM EDT)ComponentValueRef RangeTest Method Analysis TimePerformed AtPathologist SignatureURIC ACID5.02.6 - 6.0 mg/dLTBH Specimen (Source)Anatomical Location / LateralityCollection Method / Volume Collection TimeReceived Time02/17/2025 6:04 PM EDT1 6:10 PM EDT Narrative CLINISYNC - 02/17/2025 6:31 PM EDT Authorizing ProviderResult TypeResult StatusCorey Sherwin DOCLINISYNCFinal Result Performing OrganizationAddressCity/State/ZIP CodePhone Number [facility] * (ABNORMAL) ALL CBC WITH AUTO DIFF (02/17/2025 6:04 PM EDT)ComponentValueRef RangeTest MethodAnalysis TimePerformed AtPathologist SignatureTBH WBC10.74.0 - 11.0 10 3/uLTBHTBH RBC4.294.20 - 5.40 10 6/uLTBHTBH HGB13.312.0 - 16.0 g/dLTBH TBH HCT39.236.0 - 48.0 %TBHTBH MCV91.481.0 - 99.0 fLTBHTBH MCH31.026.7 - 34.0 pgTBHTBH MCHC33.929.9 - 35.2 g/dLTBHTBH RDW12.611.0 - 15.0 %TBHTBH CQB097(L) 150 - 450 10 3/uLTBHTBH MPV12.29.5 - 13.5 fLTBHNEUTROPHILS PERCENT AUTO67.8 43.0 - 75.0 %TBHLYMPHOCYTES PERCENT AUTO22.920.5 - 60.0 %TBHMONOCYTES PERCENT AUTO6.71.7 - 12.0 %TBHTBH EO %1.20.9 - 7.0 %TBHBASOPHILS PERCENT AUTO0.30.2 - 2.0 %TBHIMMATURE GRANULOCYTES PCT AUTO1.1(H)0.0 - 0.5 %TBHNEUTROPHILS ABSOLUTE AUTO7.3(H)1.4 - 6.5 10 3/uLTBHLYMPHOCYTES ABSOLUTE AUTO2.51.2 - 3.8 10 3/uLTBH MONOCYTES ABSOLUTE AUTO0.70.3 - 0.8 10 3/uLTBHTBH EO #0.10.0 - 0.7 10 3/uLTBH BASOPHILS ABSOLUTE AUTO0.00.0 - 0.1 10 3/uLTBHIMMATURE GRANULOCYTES ABS AUTO 0.12(H)0.00 - 0.03 10 3/uLTBHSpecimen (Source)Anatomical Location / Laterality Collection Method / VolumeCollection TimeReceived Time02/17/2025 6:04 PM EDT 02/17/2025 6:10 PM EDT Narrative CLINISYNC - 02/17/2025 6:19 PM EDT Authorizing ProviderResult TypeResult StatusCorey Sherwin DOCLINISYNCFinal Result Performing OrganizationAddressCity/State/ZIP CodePhone Number [facility] * ALL BUN (02/17/2025 6:04 PM EDT)ComponentValueRef RangeTest MethodAnalysis TimePerformed AtPathologist SignatureBLOOD UREA NITROGEN7.07.0 - 18.0 mg/dLTBH Specimen (Source)Anatomical Location / LateralityCollection Method / Volume Collection TimeReceived Time02/17/2025 6:04 PM EDT1 6:10 PM EDT Narrative CLINISYNC - 02/17/2025 6:31 PM EDT Authorizing ProviderResult TypeResult StatusCorey Sherwin DOCLINISYNCFinal Result Performing OrganizationAddressCity/State/ZIP CodePhone Number [facility] * (ABNORMAL) TBH URINE T PROTEIN CREAT RATIO (02/17/2025 6:00 PM EDT)Component ValueRef RangeTest MethodAnalysis TimePerformed AtPathologist SignatureTOTAL PROTEIN URINE RANDOM<6.0<=11.9 mg/dLTBHCREATININE URINE RANDOM<13.00(L)20.00 - 300.00 mg/dLTBHSpecimen (Source)Anatomical Location / LateralityCollection Method / VolumeCollection TimeReceived Time02/17/2025 6:00 PM EDT1 6:10 PM EDT Narrative CLINISYNH - 02/17/2025 6:21 PM EDT Authorizing ProviderResult TypeResult StatusCorey Sherwin DOCLINISYNCFinal Result Performing OrganizationAddressty/State/ZIP CodePhone Number [facility] * [facility] DRUG SCREEN RAPID (URINE) (02/17/2025 6:00 PM EDT)ComponentValueRef Range Test MethodAnalysis TimePerformed AtPathologist SignatureCANNABINOID SCREEN URINENEGATIVENEGATIVETBHPHENCYCLIDINE SCREEN URINENEGATIVENEGATIVETBHCOCAINE SCREEN URINENEGATIVENEGATIVETBHMETHAMPHETAMINES SCREEN URINENEGATIVENEGATIVE TBHOPIATE SCREEN URINENEGATIVENEGATIVETBHAMPHETAMINE SCREEN URINENEGATIVE NEGATIVETBHBENZODIAZEPINES SCREEN URINENEGATIVENEGATIVETBHTRICYCLIC ANTIDEPRESSANT URINENEGATIVENEGATIVETBHMETHADONE SCREEN URINENEGATIVENEGATIVE TBHBARBITURATES SCREEN URINENEGATIVENEGATIVETBHOXYCODONE SCREEN URINENEGATIVE NEGATIVETBHBUPRENORPHINE SCREEN URINENEGATIVENEGATIVETBHComment: DRUG CLASS TEST SYSTEM CUT-OFF CONCENTRATIONS ARE FOLLOWS: AMP (Amphetamine): 500 ng/mL BAR (Barbiturates): 200 ng/mL BZO (Benzodiazepines): 150 ng/mL BUP (Buprenorphine): 10 ng/mL RADHA (Cocaine): 150 ng/mL mAMP (Methamphetamine): 500 ng/mL MTD (Methadone): 200 ng/mL OPI (Opiates): 100 ng/mL OXY (Oxycodone): 100 ng/mL PCP (Phencyclidine): 25 ng/mL THC (Cannabinoids): 50 ng/mL TCA (Trycyclic Antidepressants): 300 ng/mL Specimen (Source)Anatomical Location / LateralityCollection Method / Volume Collection TimeReceived Time02/17/2025 6:00 PM EDT1 6:45 PM EDT Narrative CLINISYNC - 02/17/2025 7:10 PM EDT Authorizing ProviderResult TypeResult StatusCorey Sherwin DOCLINISYNCFinal Result Performing OrganizationAddressCity/State/ZIP CodePhone Number [facility] * ECG 12-LEAD (02/17/2025 4:49 PM EDT)Anatomical RegionLateralityModalityOther Specimen (Source)Anatomical Location / LateralityCollection Method / Volume Collection TimeReceived Time02/17/2025 4:49 PM EDT Narrative 02/17/2025 6:09 PM EDT [facility] ?[address] ? [place] [address] ? Electrocardiograph Report ? Signed Patient: OLENA AGRCIA ?MR#: [id number] : 1995 ?Acct:[id number] Age/Sex: 29 / F ?ADM Date: 02/17/25 Loc: [facility] ??250-[address]: Rula Courtney D.O. Ordering Physician: Rula Courtney D.O. Date of Service: 02/17/25 Procedure(s): ECG 12 lead Accession Number(s): [id number] cc: ?[facility] ? Test Date: ?2025-02-17 Pat Name: ? OLENA GARCIA ? Department: ? Room: ? 250-1 Gender: ? Female ? 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 Requested By: RULA COURTNEY Order Number: [id number] ?Reading MD: ?? CARLOS A ??Steven OROZCO ? Measurements Intervals ?Louise Rate: ? 120 ?P: ?29 NM: ? 100 ?QRS: ?25 QRSD: ? 77 ? T: ?-7 QT: ? 301 QTc: ?426 ? Interpretive Statements SINUS TACHYCARDIA WITH SHORT NM INTERVAL ABNORMAL RHYTHM ECG No previous ECG available for comparison Electronically Signed On 02-17-2025 18:09:41 EDT by CARLOS A ??Steven OROZCO Dictated By: ?CARLOS A OROZCO Signed By: ?02/17/251808 DD/ 48 TD/TT: ? [address] Man: Procedure Note Radiology, Radiologist, - 03/14/2025 [place] [address] Electrocardiograph Report Signed Patient: OLENA GARCIA RMR#: [id number] : 1995Acct:[id number] Age/Sex: 29 / FADM Date: 02/17/25 Loc: [facility] [address]: Rula Courtney D.O. Ordering Physician: Rula Courtney D.O. Date of Service: 02/17/25 Procedure(s): ECG 12 lead Accession Number(s): [id number] cc: [facility] Test Date: 2025-02-17 Pat Name: OLENA GARCIA Department: Room: 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 Measurements Intervals Louise Rate: 120 P: 29 NM: 100 QRS: 25 QRSD: 77 T: -7 QT: 301 QTc: 426 Interpretive Statements SINUS TACHYCARDIA WITH SHORT NM INTERVAL ABNORMAL RHYTHM ECG No previous ECG available for comparison Electronically Signed On 02-17-2025 18:09:41 EDT by CARLOS A OROZCO M.D. Dictated By: CARLOS A OROZCO Signed By:02/17/251808 DD/ 48 TD/TT: [address] Man: Authorizing ProviderResult TypeResult StatusCorey Sherwin DOCLINISYNC IMAGINGFinal Result * US OB BPP W NON-STRESS (02/14/2025 9:54 PM EDT) Only the most recent of6 resultswithin the time period is included. Anatomical RegionLateralityModalityOtherSpecimen (Source)Anatomical Location / LateralityCollection Method / VolumeCollection TimeReceived Time02/14/2025 9:54 PM EDT Narrative 02/14/2025 9:57 PM EDT [facility] ?[address] ? [place] [address] ? Ultrasound Report ? Signed Patient: OLENA GARCIA ?MR#: [id number] : 1995 ?Acct:[id number] Age/Sex: 29 / F ?ADM Date: 02/14/25 Loc: US Attending Dr: Rula Courtney D.O. Ordering Physician: Rula Courtney D.O. Date of Service: 02/14/25 Procedure(s): US OB BPP w non-stress Accession Number(s): [id number] cc: Rula Courtney D.O.; Physician,Non-Staff StarDBetito ? [facility] ? [address] ? [place] [address] ? Patient Name: OLENA GARCIA MRN: [id number] ? date: 1995 ?Sex: F Assigned Patient Location: [facility] Current Patient Location: Accession/Order Number: [id number] Exam Date: 02/14/2025 ??16:49 ?Report Date: 02/14/2025 ??21:54 At the request of: RULA ??SHERWIN ??DO Procedure: ??US OB BPP w non-stress US OB BPP w non-stress ??02/14/2025 5:14 PM SIGNS AND SYMPTOMS: PREGNACY RESULTING FROM INVITRO O09.813 PROTOCOL: Transabdominal sonographic imaging of the gravid uterus COMPARISON: None FINDINGS: Estimated gestational age: 37 weeks and 6 days heart rate: 141 bpm Amniotic fluid index: 12.10 cm. ??The deeper surgical pocket measures 4.56 cm. Biophysical profile: breathing movements: 2/2 Gross body movements: 2/2 tone: 2/2 Amniotic fluid volume: 2/2 US/US OB BPP w non-stress IMPRESSION: Biophysical profile score: 8/8 Impression dictated by: Damian Winters M.D. ??02/14/2025 9:54 PM Dictation Location: eDealya-17 Electronically authenticated by: [id number] ??Y ?? Date: 02/14/2025 ??21:54 Dictated By: ?Damian Winters M.D. Signed By: ?02/14/252156 DD/ 53 TD/TT: ? [address] Man: Procedure Note Radiology, Radiologist, - 03/14/2025 [place] [address] Ultrasound Report Signed Patient: OLENA GARCIA RMR#: [id number] : 1995Acct:[id number] Age/Sex: 29 / FADM Date: 02/14/25 Loc: US Attending Dr: Rula Courtney D.O. Ordering Physician: Rula Courtney D.O. Date of Service: 02/14/25 Procedure(s): US OB BPP w non-stress Accession Number(s): [id number] cc: Rula Courtney D.O.; Physician,Non-Staff Steven [facility] [place] [id number] Patient Name: OLENA GARCIA MRN: [id number] date: 1995 Sex: F Assigned Patient Location: [facility] Current Patient Location: Accession/Order Number: [id number] Exam Date: 02/14/2025 16:49 Report Date: 02/14/2025 21:54 At the request of: RULA COURTNEY DO Procedure: US OB BPP w non-stress US OB BPP w non-stress 02/14/2025 5:14 PM SIGNS AND SYMPTOMS: PREGNACY RESULTING FROM INVITRO O09.813 PROTOCOL: Transabdominal sonographic imaging of the gravid uterus COMPARISON: None FINDINGS: Estimated gestational age: 37 weeks and 6 days heart rate: 141 bpm Amniotic fluid index: 12.10 cm. The deeper surgical pocket measures 4.56cm. Biophysical profile: breathing movements: 2/2 Gross body movements: 2/2 tone: 2/2 Amniotic fluid volume: 2/2 US/US OB BPP w non-stress IMPRESSION: Biophysical profile score: 8/8 Impression dictated by: Damian Winters M.D. 02/14/2025 9:54 PM Dictation Location: [facility] Electronically authenticated by: [id number] Y Date: :54 Dictated By: Damian Winters M.D. Signed By:02/14/252156 DD/ 53 TD/TT: [address] Man: Authorizing ProviderResult TypeResult StatusCorey Sherwin DOCLINISYNC IMAGINGFinal Result * (ABNORMAL) POCT urinalysis dipstick manually resulted (02/14/2025 2:52 PM EDT) Only the most recent of4 resultswithin the time period is included. ComponentValueRef [...] 2:52 PM EDT Narrative Authorizing ProviderResult TypeResult StatusCorearthur Courtney DOPOINT OF CARE TEST ENTER/EDIT ORDERABLESFinal Result * CULTURE, GROUP B STREP WITH SUSCEPTIBLITY (02/08/2025 8:35 AM EDT) Narrative Authorizing ProviderResult TypeResult StatusMaria M Guerrero NPLAB BLOOD ORDERABLESFinal ResultPerforming OrganizationAddressCity/State/ZIP CodePhone Number EXTERNAL LAB * US OB GROWTH (02/01/2025 9:21 AM EDT)Anatomical RegionLateralityModalityOther Specimen (Source)Anatomical Location / LateralityCollection Method / Volume Collection TimeReceived Time02/01/2025 9:21 AM EDT Narrative 02/01/2025 9:24 AM EDT [facility] ?[address] ? [place] [address] ? Ultrasound Report ? Signed ? Patient: NICK,OLENA R ?MR#: [id number] ?? : 1995 ?Acct:[id number] ?? Age/Sex: 29 / F ?ADM Date: 01/31/25 ?? Loc: US ? Attending Dr: Rula Corutney D.O. ? Ordering Physician: Rula Courtney D.O. ?? Date of Service: 01/31/25 ?? Procedure(s): US OB growth ?? Accession Number(s): [id number] ? cc: Rula Courtney D.O.; Physician,Non-Staff MBetitoD. ? [facility] ? [address] ? [place] [address] ? Patient Name: ?? OLENA GARCIA ? MRN: [facility]:[id number] ? date: 1995 ?Sex: F ?? Assigned Patient Location: [facility] ?? Current Patient Location: LAB ?? Accession/Order Number: [id number] ?? Exam Date: 01/31/2025 ??15:22 ?Report Date: [...] +/- 1 lb. 0 oz. ??(81%). ? / OB growth ?? IMPRESSION: ? SINGLE LIVE [...] Dictation Location: RADIO-PC-02 ? Electronically authenticated by: [id number] ??Y ?? Date: 02/01/2025 ??09:21 ? Dictated By: ?Mariela Toledo M.D. ? Signed By: ?02/01/25923 ? DD/ 0 ? TD/TT: ? [address] Man: Procedure Note Radiology, Radiologist, - 02/01/2025 [place] [address] Ultrasound Report Signed Patient: OLENA GARCIA R#: [id number] : 1995Acct:[id number] Age/Sex: 29 / FADM Date: 01/31/25 Loc: US Attending Dr: Rula Courtney D.O. Ordering Physician: Rula Courtney D.O. Date of Service: 01/31/25 Procedure(s): US OB growth Accession Number(s): [id number] cc: Rula Courtney D.O.; Physician,Non-Staff M.DBetito [facility] [place] [id number] Patient Name: OLENA GARCIA MRN: [id number]:[id number] date: 1995 Sex: F Assigned Patient Location: [facility] Current Patient Location: LAB Accession/Order Number: [id number] Exam Date: 01/31/2025 15:22 Report Date: 02/01/2025 [...] Toledo M.D. 02/01/2025 9:21 AM Dictation Location: [place] [address] Electronically authenticated by: [id number] Y Date: 9:21 Dictated By: Mariela Toledo M.D. Signed By:10/05/28 923 DD/ 0 TD/TT: [address] Man: Authorizing ProviderResult TypeResult StatusCorey Sherwin DOCLINISYNC IMAGINGFinal Result from Last 3 Months Insurance
--- OUTSIDE RECORDS SUMMARY | 2025-04-17 08:14 | XMS_ITS | Clinical Summary ---
Author Organization [facility] Address [address] [place] [address] Phone Care Team Providers Care Card Assembler Name Role Phone Allyssa Robles RN Unavailable Unavailable Allergies Active AllergyReactionsCriticalityNoted LkurFobksyaxPtmgbZavjIoc10/09/2024Nickel CgulYak2312/11/2023 Medications MedicationSigDispense QuantityRefillsLast FilledStart DateEnd DateStatus mmdaotle13-yycj-nvhvj-jybgj2 29-1-400 mg combo pack,tablet and cap,DR Take by mouth.Active estradiol (Estrace) 2 mg tablet Indications:Female infertilityInsert 1 tablet (2 mg) into the vagina 2 times a day.5006/06/2025ctive estradiol (Estrace) 2 mg tablet Indications:Female infertilityTake 3 tablets (6 mg) by mouth once daily. 90 tablet 110506Active progesterone 50 mg/mL injection Indications:Female infertilityDraw up and inject 1.5 mL (75 mg) into the muscle at the same time each morning as directed per provider. 150 mL 05/03/2024 3:33 PM ESTExpired Active Problems ProblemNoted DateDiagnosed DateFemale hpgsntnwkoq50/14/2024ONV (postoperative nausea and vomiting)01/28/2024CommentsYes Family History Medical HistoryRelationNameCommentsPolycystic kidney diseaseBrotherPolycystic kidney diseaseMotherRelationNameStatusCommentsBrotherMother Social History Tobacco UseTypesPacks/DayYears UsedDateSmoking Tobacco: NeverSmokeless Tobacco: Never Tobacco Cessation:Counseling Given: No Alcohol UseStandard Drinks/WeekCommentsNot Currently0 (1 standard drink = 0.6 oz pure alcohol)OccassionallyCommentsYesSex and Gender InformationValueDate RecordedSex Assigned at BirthNot on fileLegal ColVktegj63/05/2024 8:54 AM EDT Gender IdentityNot on fileSexual OrientationNot on file Last Filed Vital Signs Vital SignReadingTime TakenCommentsBlood Dacehnbx53/6203/22/2024 10:45 AM EST Xmtks020903/22/2024 10:45 AM YNAZuzovkbxqye59.3 ??C (97.3 ??F)03/22/2024 9:45 AM ESTRespiratory Knnr927105/22/2023 10:45 AM ESTOxygen Xaeeipoftl019%03/22/2024 10:45 AM ESTInhaled Oxygen Concentration--Aizely79.9 kg (165 lb 2 oz)03/22/2024 8:29 AM PVSBaojou251 cm (5' 3 )03/22/2024 8:29 AM ESTBody Mass Index29.25 03/22/2024 8:29 AM EST Plan of Treatment Health MaintenanceDue DateLast DoneCommentsLipid Panel1997MMR Vaccines (1 of 1 - Standard series)1998Hepatitis B Vaccines (1 of 3 - 19+ 3-dose series)2016HPV/Xfgkzk6812/11/2018DTaP/Tdap/Td Vaccines (2 - Td or Tdap) Influenza Vaccine (#1)2024HPV Vaccines (1 - 3-dose standard series)5COVID-19 Vaccine ( - 2024- season)2025early Adult Gwvtojbh48ervical Cancer Snhhaczig80/12/2027Pap Smear Zoster Vaccines (1 of 2)RSV High Risk: (Elderly (60+) or Population) (1 - 1-dose 75+ series)2072 Meningococcal VaccineAged Out12/20/2009No longer eligible based on patient's age to complete this topicHIV RtdczhckfJqxdagsvy34/09/2024Hepatitis C Screening Qkcruezvf57/09/2024HIB VaccinesAged OutNo longer eligible based on patient's [...] topic Procedures Procedure NamePriorityDate/TimeAssociated DiagnosisCommentsHEPATITIS C ANTIBODY Utkowij2512/11/2023 10:21 AM EDT Screening for STDs (sexually transmitted diseases) HIV 1/2 ANTIGEN/ANTIBODY SCREEN WIH REFLEX TO YUFBUOMVCGVLEiiflws31/09/2024 10:21 AM EDT Screening for STDs (sexually transmitted diseases) from Last 3 Months or Most Recently Relevant to Health Maintenance Results * Hepatitis C Antibody (2023 10:21 AM EDT)ComponentValueRef RangeTest MethodAnalysis TimePerformed AtPathologist SignatureHepatitis C Anitbody NonreactiveNonreactive LAB IMMUNOASSAY METHOD 2023 7:11 PM EDTSUR[facility] LABComment:Results from patients taking biotin supplements or receiving high-dose biotin therapy should be interpreted with caution due to possible interference with this test. Providers may contact their locallaboratory for further information.Specimen (Source)Anatomical Location / LateralityCollection Method / VolumeCollection TimeReceived TimeBloodVenous blood specimen / UnknownVenipuncture / Oktxfqg8912/11/2023 10:21 AM EDT2023 10:21 AM EDT Narrative Authorizing ProviderResult TypeResult StatusTrish Sun TECHNICIAN'S HELPER-TOBEY HOSPITALLAB BLOOD ORDERABLESFinal ResultPerforming OrganizationAddressCity/State/ZIP CodePhone Number [facility] [address] [place] [address] * HIV 1/2 Antigen/Antibody Screen with Reflex to Confirmation (2023 10:21 AM EDT)ComponentValueRef RangeTest MethodAnalysis TimePerformed AtPathologist SignatureHIV 1/2 Antigen/Antibody Screen with Reflex to Confirmation NonreactiveNonreactive LAB IMMUNOASSAY METHOD 2023 7:37 PM EDTSURGICAL [facility] LABSpecimen (Source)Anatomical Location / Laterality Collection Method / VolumeCollection TimeReceived TimeBloodVenous blood specimen / UnknownVenipuncture / Hszgvcj1112/11/2023 10:21 AM EDT2023 10:21 AM EDT Narrative [facility] - 2023 7:37 PM EDT HIV Ag/Ab screen is performed using the Siemens Diagnostic Hybrids HIV Ag/Ab Combo assay which detects the presence of HIV p24 antigen as well as antibodies to HIV-1 (Group M and O) and HIV-2. No laboratory evidence of HIV infection. If acute HIV infection is suspected, consider testing for HIV RNA by PCR (viral load). Authorizing ProviderResult TypeResult StatusTrish Sun APRN-CNPLAB BLOOD ORDERABLESFinal ResultPerforming OrganizationAddressCity/State/[place] [address] from Last 3 Months or Most Recently Relevant to Health Maintenance Insurance * Guarantor: Chidi Garcia TypeRelation to PatientDate of BirthPhone Billing SyqqyxsGTTDviy00/10/1996 [id number] [facility] [address] [place] [address] Care Teams Team MemberRelationshipSpecialtyStart DateEnd Date Allyssa Robles RN Registered NurseReproductive Endocrinology and Infertility12/25/23
--- NOTE | 2025-04-17 10:51 | PC.NURSE ---
Betina and 8 week old Krystin arrive for follow up. Mom needs reassurance that changes in feeding schedules are normal. Baby wants a 5-6 hour sleep window from 9pm to 2 am. Will then nurse every 3 hours and be very content. Weight today is 10-6 with weight being 8-0. is tracking milestones well and happy per mom's report. Multiple wets and 1-2 stool diapers daily. Infant nurses for short time 15 min for both breasts. Infant to breast nurses well, suspect heavy letdown and infant works to keep up with flow. Post feed weight is up 3 oz after 13 minutes of feed. Offered to feed baby is forward facing position when really full to allow infant control of flow for feed. Mom able to return demo of positioning and latch. States she feels much better knowing baby is gaining and moving 3 oz with short feed. Couplet home at this time. No further concerns voiced.
== END 2025-04-17 10:58 | disposition home or self-care (01) ==
LOC: FBCO 08:10
PROVIDERS: Visit Provider Obstetrics & Gynecology
DX: Z39.1 Encounter for care and examination of lactating mother (principal)
CPT/HCPCS: G0463